=== PATIENT | male | born 1960 | race Caucasian/White ===

== ENCOUNTER → 2018-09-22 10:32 | Outpatient (BNVA) | payer MEDICARE, MEDICAID, SELFPAY | PROVIDERS: PCP Nurse Practitioner Family; Referring Provider Nurse Practitioner Family; Visit Provider Surgery | DX: Z12.11 Encounter for screening for malignant neoplasm of colon (principal); Z86.010 Personal history of colon polyps; K59.01 Slow transit constipation; E11.22 Type 2 diabetes mellitus with diabetic chronic kidney disease; N18.6 End stage renal disease; Z99.2 Dependence on renal dialysis; Z79.4 Long term (current) use of insulin; N18.4 Chronic kidney disease, stage 4 (severe) | CPT/HCPCS: 99203 ==

== ENCOUNTER 2018-10-12 05:19 | Emergency (ER) | payer MEDICARE, MEDICAID, SELFPAY ==
[2018-10-12] VITALS (62 sets, daily range): BP systolic 106–154; BP diastolic 45–82; PULSE 78–123; RESP 8–30; TEMP 36.4–38.4; O2SAT 88–99
--- NOTE | 2018-10-12 05:13 | W.ED.GENAD ---
Discharge Plan Disposition Patient Disposition: DEVAN GILBERT ([facility]) Condition: Stable Discharge Details Chief Complaint: Fever Clinical Impression: Cellulitis of left leg, Sepsis Primary Care Provider: Jarad Keller ED Provider: Roderick Chávez [place] Meds and New Rx's Prescriptions: No Action polyethylene glycol 3350 [Miralax] 17 gram/dose powder 17 gm PO BID Qty: 510 RF: 1 losartan 50 mg tablet 50 mg PO DAILY RF: 0 tamsulosin 0.4 mg capsule 0.4 mg PO DAILY RF: 0 bumetanide 1 mg tablet 2 mg PO DAILY RF: 0 ProRenal QD 400-500 mcg-unit capsule 1 cap PO DAILY RF: 0 lancets 1 EACH misc 1 ea Miscellaneous QID Qty: 400 RF: 4 BD Regular Bevel [place] 1 EACH needle 1 ea Intrauterine AC Qty: 100 RF: 4 Novolog Flexpen U-100 Insulin 100 UNIT/1 ML insulin pen 12 unit SQ AC Qty: 3 RF: 12 sertraline [Zoloft] 50 MG tablet 1 tab PO DAILY Qty: 90 RF: 4 pravastatin [Pravachol] 40 MG tablet 1 tab PO DAILY Qty: 90 RF: 4 gabapentin 300 MG capsule 1 tab PO TID Qty: 270 RF: 4 pen needle, diabetic 1 EACH needle 1 ea Sub-Q TID PRNQty: 100 RF: 12 Blood Glucose Test 1 EACH strip 1 ea Miscellaneous QID Qty: 400 RF: 6 aspirin 81 mg tablet,chewable 325 mg PO DAILY RF: 0 Medical Decision Making Patient presenting with fever and tachycardia and likely sepsis. He has low O2 saturations with some rales/rhonchi in the left base. Consider pneumonia. He does make urine so we will need to check urinalysis. He has evidence of left lower extremity cellulitis with tenderness to palpation along the medial aspect of the thigh. Will also need to consider DVT. He is due for dialysis this morning. He is not hypotensive. We will give a 500 mL bolus of fluids and Tylenol 1 g. 07:00 -patient's heart rate has come down some with a 500 fluid bolus. Blood pressure has remained stable. Saturations are 96% on 2 L nasal cannula. The left lower extremity seems to have become more erythematous while here. Laboratory studies significant for a normal white count. Lactic acid is only 2.1. BUN and creatinine elevated but normal potassium. Chest x-ray with no obvious infiltrate per preliminary radiology read. Bladder scan showed 750 mL's of urine in the bladder. He has been unable to urinate and has a history of retention. Farrell catheter placed. Urine has come back negative for infection. He has received vancomycin for presumed cellulitis of the left lower extremity. I have contacted [facility] [place] to try to arrange for transfer. 07:30 -[facility] [place] has no beds available. I contacted [facility]. Spoke to the hospitalist, Dr. Mccauley. Patient accepted to their facility for further management. Currently stable vital signs with his fever and heart rate coming down. He has received the vancomycin. He received 500 of LR and at this point is locked and given that his heart rate has come down and blood pressure is stable. He will be transferred by ambulance with medic. Lab Data Lab results reviewed: Yes I reviewed the patient's lab results. ECG Data Attestation: I personally reviewed and interpreted this ECG (s) as follows: Prior ECG tracings: available for review Interpretation: Sinus tachycardia at 125. Normal axis. Normal intervals. ST flattening/depression in the limb leads more pronounced than previous. Precordial leads unchanged. HPI General Mode of arrival: EMS. Date/Time Provider Initiated Documentation: 10/12/18 05:27. Information obtained by: patient and EMS. HPI Narrative: Patient presents to ED by ambulance with complaint of fever and weakness. Patient has not felt well for 2 days. He has had increasing generalized weakness, vomiting, shortness of breath with slight cough. He is a dialysis patient but typically makes urine although has not had significant urine output in the last few days. This morning developed fever. His left leg is typically swollen due to previous vein harvesting for his CABG. However, it is painful and red which is not typical. He has no abdominal pain. He has had some low back pain. He has had headache but no sore throat, sinus pressure. He is due for dialysis later this morning. Related Data Home Medications Medication Instructions Recorded Confirmed lancets #400 ea 08/18/12 09/22/18 needle (disp) 21 G [[place]] #100 ndl 08/31/12 09/22/18 insulin aspart U-100 [Novolog 12 unit SQ AC #3 pen 09/18/12 10/12/18 Flexpen] sertraline [Zoloft] 1 tab PO DAILY #90 tab 11/16/12 10/12/18 pravastatin [Pravachol] 1 tab PO DAILY #90 tab 08/07/13 10/12/18 gabapentin 1 tab PO TID #270 cap 10/15/13 10/12/18 pen needle, diabetic #100 ndl 11/15/13 09/22/18 blood sugar diagnostic [Glucose #400 strip 12/05/13 09/22/18 Test Strip] aspirin 81 mg chewable tablet 325 mg PO DAILY tab 09/15/18 10/12/18 bumetanide 1 mg tablet 2 mg PO DAILY tab 09/15/18 10/12/18 losartan 50 mg tablet 50 mg PO DAILY 09/15/18 10/12/18 [id number],[id number] 1 cap PO DAILY cap 09/15/18 10/12/18 oil 400 mcg-500 unit capsule tamsulosin 0.4 mg capsule 0.4 mg PO DAILY 09/15/18 10/12/18 polyethylene glycol 3350 17 17 gm PO BID #510 gm 09/22/18 10/12/18 gram/dose oral powder Previous Rx's Medication Instructions Recorded polyethylene glycol 3350 17 17 gm PO BID #510 gm 09/22/18 gram/dose oral powder Allergies Allergy/AdvReac Type Severity Reaction Status Date / Time No Known Allergies Allergy Verified 10/12/18 07:41 Review of Systems Review of Systems 02/12 Review of Systems completed and is negative except as stated above in HPI (Systems reviewed: Const, Eyes, ENT, Resp, CV, GI, , MSK, Skin, Neuro) [facility] Medical History Anxiety with depression (Acute) Arteriovenous fistula (Chronic) CHF (congestive heart failure) (Chronic) Coronary arteriosclerosis (Chronic) Diabetic retinopathy (Chronic) ESRD (end stage renal disease) (Chronic) HTN (hypertension) (Chronic) Type 2 diabetes mellitus (Chronic) Surgical History S/P CABG (coronary artery bypass graft) (Chronic) Arthroplasty of knee (Inactive ~1973) Open Carpal Tunnel release (Inactive ~2001) S/P colonoscopy (Inactive) Social History Smoking/Tobacco Use Status: Former Tobacco Use Alcohol Intake: former Drug use: Never Substance use type: does not use Do you feel safe at home: Yes Do you feel safe in your relationship?: Yes Exam Narrative Exam Narrative: Vitals: Febrile and tachycardic. Saturations on room air right around 90. Const: Obese male in NAD. HEENT: NC/AT. Normal facial exam. Eyes: Normal conjunctiva and sclera. Neck: Supple. Trachea midline. Lungs: Normal respiratory effort. Lungs with some decreased breath sounds, few rhonchi and rales at left base. Cor: RRR without murmur/gallop. Tachy. Good radial pulses. GI: Soft. NT/ND. No guarding or rebound. Neuro: A+O x 3. CN grossly in tact. General weakness but not focal. Ext: LLE larger than right with erythema predominantly lower severino and going up medial aspect of thigh. Tender to palpation. LUE with patent AV fistula. Skin: Erythema of the LLE. Critical Care Time Critical Care Time: Yes Total Critical Care Time: 60 Attestation: sepsis
--- NOTE | 2018-10-12 05:17 | ED.GENADUL_ITS ---
Discharge Plan Disposition Patient Disposition: DEVAN GILBERT ([facility]) Condition: Stable Discharge Details Chief Complaint: Fever Clinical Impression: Cellulitis of left leg, Sepsis Primary Care Provider: Jarad Keller ED Provider: Roderick Chávez [place] Meds and New Rx's Prescriptions: No Action polyethylene glycol 3350 [Miralax] 17 gram/dose powder 17 gm PO BID Qty: 510 RF: 1 losartan 50 mg tablet 50 mg PO DAILY RF: 0 tamsulosin 0.4 mg capsule 0.4 mg PO DAILY RF: 0 bumetanide 1 mg tablet 2 mg PO DAILY RF: 0 ProRenal QD 400-500 mcg-unit capsule 1 cap PO DAILY RF: 0 lancets 1 EACH misc 1 ea Miscellaneous QID Qty: 400 RF: 4 BD Regular Bevel [place] 1 EACH needle 1 ea Intrauterine AC Qty: 100 RF: 4 Novolog Flexpen U-100 Insulin 100 UNIT/1 ML insulin pen 12 unit SQ AC Qty: 3 RF: 12 sertraline [Zoloft] 50 MG tablet 1 tab PO DAILY Qty: 90 RF: 4 pravastatin [Pravachol] 40 MG tablet 1 tab PO DAILY Qty: 90 RF: 4 gabapentin 300 MG capsule 1 tab PO TID Qty: 270 RF: 4 pen needle, diabetic 1 EACH needle 1 ea Sub-Q TID PRNQty: 100 RF: 12 Blood Glucose Test 1 EACH strip 1 ea Miscellaneous QID Qty: 400 RF: 6 aspirin 81 mg tablet,chewable 325 mg PO DAILY RF: 0 Medical Decision Making Patient presenting with fever and tachycardia and likely sepsis. He has low O2 saturations with some rales/rhonchi in the left base. Consider pneumonia. He does make urine so we will need to check urinalysis. He has evidence of left lower extremity cellulitis with tenderness to palpation along the medial aspect of the thigh. Will also need to consider DVT. He is due for dialysis this morning. He is not hypotensive. We will give a 500 mL bolus of fluids and Tylenol 1 g. 07:00 -patient's heart rate has come down some with a 500 fluid bolus. Blood pressure has remained stable. Saturations are 96% on 2 L nasal cannula. The left lower extremity seems to have become more erythematous while here. Laboratory studies significant for a normal white count. Lactic acid is only 2.1. BUN and creatinine elevated but normal potassium. Chest x-ray with no obvious infiltrate per preliminary radiology read. Bladder scan showed 750 mL's of urine in the bladder. He has been unable to urinate and has a history of retention. Farrell catheter placed. Urine has come back negative for infection. He has received vancomycin for presumed cellulitis of the left lower extremity. I have contacted [facility] to try to arrange for transfer. 07:30 -[facility] has no beds available. I contacted [facility]. Spoke to the hospitalist, Dr. Mccauley. Patient accepted to their facility for further management. Currently stable vital signs with his fever and heart rate coming down. He has received the vancomycin. He received 500 of LR and at this point is locked and given that his heart rate has come down and blood pressure is stable. He will be transferred by ambulance with medic. Lab Data Lab results reviewed: Yes I reviewed the patient's lab results. ECG Data Attestation: I personally reviewed and interpreted this ECG (s) as follows: Prior ECG tracings: available for review Interpretation: Sinus tachycardia at 125. Normal axis. Normal intervals. ST flattening/depression in the limb leads more pronounced than previous. Precordial leads unchanged. HPI General Mode of arrival: EMS . Date/Time Provider Initiated Documentation: 10/12/18 05:27 . Information obtained by: patient and EMS . HPI Narrative: Patient presents to ED by ambulance with complaint of fever and weakness. Patient has not felt well for 2 days. He has had increasing generalized weakness, vomiting, shortness of breath with slight cough. He is a dialysis patient but typically makes urine although has not had significant urine output in the last few days. This morning developed fever. His left leg is typically swollen due to previous vein harvesting for his CABG. However, it is painful and red which is not typical. He has no abdominal pain. He has had some low back pain. He has had headache but no sore throat, sinus pressure. He is due for dialysis later this morning. Related Data Home Medications Medication Instructions Recorded Confirmed lancets #400 ea 08/18/12 09/22/18 needle (disp) 21 G [[place]] #100 ndl 08/31/12 09/22/18 insulin aspart U-100 [Novolog 12 unit SQ AC #3 pen 09/18/12 10/12/18 Flexpen] sertraline [Zoloft] 1 tab PO DAILY #90 tab 11/16/12 10/12/18 pravastatin [Pravachol] 1 tab PO DAILY #90 tab 08/07/13 10/12/18 gabapentin 1 tab PO TID #270 cap 10/15/13 10/12/18 pen needle, diabetic #100 ndl 11/15/13 09/22/18 blood sugar diagnostic [Glucose #400 strip 12/05/13 09/22/18 Test Strip] aspirin 81 mg chewable tablet 325 mg PO DAILY tab 09/15/18 10/12/18 bumetanide 1 mg tablet 2 mg PO DAILY tab 09/15/18 10/12/18 losartan 50 mg tablet 50 mg PO DAILY 09/15/18 10/12/18 mv,[id number] 1 cap PO DAILY cap 09/15/18 10/12/18 oil 400 mcg-500 unit capsule tamsulosin 0.4 mg capsule 0.4 mg PO DAILY 09/15/18 10/12/18 polyethylene glycol 3350 17 17 gm PO BID #510 gm 09/22/18 10/12/18 gram/dose oral powder Previous Rx's Medication Instructions Recorded polyethylene glycol 3350 17 17 gm PO BID #510 gm 09/22/18 gram/dose oral powder Allergies Allergy/AdvReac Type Severity Reaction Status Date / Time No Known Allergies Allergy Verified 10/12/18 07:41 Review of Systems Review of Systems 02/12 Review of Systems completed and is negative except as stated above in HPI (Systems reviewed: Const, Eyes, ENT, Resp, CV, GI, , MSK, Skin, Neuro) [facility] Medical History Anxiety with depression (Acute) Arteriovenous fistula (Chronic) CHF (congestive heart failure) (Chronic) Coronary arteriosclerosis (Chronic) Diabetic retinopathy (Chronic) ESRD (end stage renal disease) (Chronic) HTN (hypertension) (Chronic) Type 2 diabetes mellitus (Chronic) Surgical History S/P CABG (coronary artery bypass graft) (Chronic) Arthroplasty of knee (Inactive ~1973) Open Carpal Tunnel release (Inactive ~2001) S/P colonoscopy (Inactive) Social History Smoking/Tobacco Use Status: Former Tobacco Use Alcohol Intake: former Drug use: Never Substance use type: does not use Do you feel safe at home: Yes Do you feel safe in your relationship?: Yes Exam Narrative Exam Narrative: Vitals: Febrile and tachycardic. Saturations on room air right around 90. Const: Obese male in NAD. HEENT: NC/AT. Normal facial exam. Eyes: Normal conjunctiva and sclera. Neck: Supple. Trachea midline. Lungs: Normal respiratory effort. Lungs with some decreased breath sounds, few rhonchi and rales at left base. Cor: RRR without murmur/gallop. Tachy. Good radial pulses. GI: Soft. NT/ND. No guarding or rebound. Neuro: A+O x 3. CN grossly in tact. General weakness but not focal. Ext: LLE larger than right with erythema predominantly lower severino and going up medial aspect of thigh. Tender to palpation. LUE with patent AV fistula. Skin: Erythema of the LLE. Critical Care Time Critical Care Time: Yes Total Critical Care Time: 60 Attestation: sepsis
[2018-10-12] MEDS: Acetaminophen 500 MG TAB 1000 MG PO (05:34)
[2018-10-12] MEDS: Normal Saline Flush 10 ML SYR IVP (05:38)
[2018-10-12] MEDS: Lactated Ringers 500 ML IV (05:38)
--- NOTE | 2018-10-12 05:51 | DI.RAD_ITS ---
SYMPTOM/DIAGNOSIS: FEVER, SOB PORTABLE SEMI-ERECT AP CHEST: No localized infiltrates are seen. There is no pleural effusion. The heart is not enlarged. The patient is status post median sternotomy. The hilar structures, mediastinum and tracheal air column appear intact. SUMMARY: No evidence of acute cardiopulmonary disease.
[2018-10-12 06:02] LABS: Abs Immature Grans 0.04 k/cumm (0.0-0.09); Absolute Basophil Count 0.03 k/cumm (0.0-0.2); Absolute Eosinophil Count 0.01 k/cumm (0.0-0.7); Absolute Lymphocyte Count 0.59 k/cumm (1.2-3.4); Absolute Monocyte Count 0.74 k/cumm (0.11-0.7); Absolute Neutrophil Count 9.07 k/cumm (1.2-6.7); Basophils % 0.3; Eosinophils % 0.1; HCT 33.7 % (40.0-50.0); HGB 11.2 g/dL (13.5-17.5); Immature Grans % 0.4; Lymphocytes % 5.6; Mean Corp. HGB Concentration 33.2 g/dL (32.0-36.0); Mean Corpuscular Hemoglobin 32.5 pg (27.0-33.0); Mean Corpuscular Volume 97.7 fL (80-95); Mean Platelet Volume 10.1 fL (8.0-11.0); Monocytes % 7.1; Neutrophils % 86.5; Platelet Count 161 x1000/uL (130-400); RBC 3.45 m/cumm (4.50-6.00); RBC Distribution Width 14.4 % (11.8-14.1); White Blood Cell Count 10.48 k/cumm (4.4-10.8)
[2018-10-12] MEDS: VANCOMYCIN 1,500 MG in Normal Saline 250 ML 166.6666 MG IVPB (06:04)
--- NOTE | 2018-10-12 06:07 | DI.VRAD_ITS ---
EXAM: XR Chest, 1 View EXAM DATE/TIME: 10/12/2018 5:31 AM CLINICAL HISTORY: 58 years old, male; Signs and symptoms; Fever and shortness of breath TECHNIQUE: Imaging protocol: XR of the chest, 1 view. COMPARISON: No relevant prior studies available. FINDINGS: Lungs: No obvious consolidation. Left base poorly visualized on this single portable view. Pleural space: Unremarkable. No evidence of pneumothorax. Heart/Mediastinum: Unremarkable. Heart size within normal limits for technique. Bones/joints: Unremarkable. IMPRESSION: No acute findings. Dictated and Authenticated by: Louis Abreu MD. Ordering:KAROL Vaughn MD
[2018-10-12 06:10] LABS: Lactate-non-spesis 2.1 mmol/l (0.6-1.4)
[2018-10-12 06:22] LABS: ALT 41 U/L (12-78); AST 34 U/L (15-37); Albumin 3.1 g/dL (3.4-5.0); Alkaline Phosphatase 85 U/L (46-116); BUN 49 mg/dL (7-18); Bilirubin, Total 0.6 mg/dL (0.2-1.0); Calcium 8.8 mg/dL (8.5-10.1); Chloride 91 mmol/L (98-107); Estimated GFR 10.16 (mL/min/1.73m2); Glucose 253 mg/dL (70-100); Magnesium 1.7 mg/dL (1.8-2.4); Potassium 4.2 mmol/L (3.5-5.1); Sodium 130 mmol/L (136-145); Total Protein 7.6 g/dL (6.4-8.2); Troponin I 0.06 ng/mL (0.00-0.06)
[2018-10-12 06:23] LABS: CREATININE 5.75 mg/dL (0.70-1.30)
[2018-10-12] MEDS: Lidocaine 2% Jelly 6 ML SYR (06:32)
[2018-10-12 06:37] LABS: Bilirubin Negative (Negative); Blood Moderate (Negative); Clarity Clear; Glucose 500 mg/dL (Negative); Ketones Negative (Negative); Leukocyte Esterase Negative (Negative); Nitrite Negative (Negative); Specific Gravity 1.015 (1.005-1.025); Urobilinogen 0.2 EU/dL (Up TO 0.2)
[2018-10-12 06:52] LABS: Bacteria Rare HPF (Negative); Crystals Few Amorphous HPF (Negative); Epithelial Cells Rare HPF (Negative); Mucus Trace (Negative)
[2018-10-12 06:53] LABS: C & S Indicated? No; Casts 0-2 Coarse Granular LPF (Negative)
== END 2018-10-12 11:08 | disposition short-term general hospital (02) ==
LOC: ER 08:04
PROVIDERS: Emergency Provider Emergency Medicine; PCP Nurse Practitioner Family
DX: A41.9 Sepsis, unspecified organism (principal); L03.116 Cellulitis of left lower limb; R00.0 Tachycardia, unspecified; E11.22 Type 2 diabetes mellitus with diabetic chronic kidney disease; I13.2 Hypertensive heart and chronic kidney disease with heart failure and with stage 5 chronic kidney disease, or end stage renal disease; N18.6 End stage renal disease; I25.10 Atherosclerotic heart disease of native coronary artery without angina pectoris; Z99.2 Dependence on renal dialysis; I50.9 Heart failure, unspecified; Z95.1 Presence of aortocoronary bypass graft
CPT/HCPCS: 36415; 80053; 87040; 93005; 96360; 96365; 96366; 99285; 71045; 81003; 81015; 83605; 83735; 84484; 85025; 93010

== ENCOUNTER 2018-11-17 10:42 | Emergency (ER) | payer MEDICARE, MEDICAID, SELFPAY ==
[2018-11-17] VITALS (12 sets, daily range): BP systolic 137–174; BP diastolic 70–83; PULSE 76–92; RESP 14–18; TEMP 36.7–36.9; O2SAT 82–96
--- NOTE | 2018-11-17 11:31 | DI.US_ITS ---
SYMPTOM/DIAGNOSIS: LEFT LEG SWELLING, R/O DVT LEFT LOWER EXTREMITY ULTRASOUND: The deep veins of the left lower extremity show normal compression, augmentation and color flow. No evidence of a deep venous thrombus is present. The saphenofemoral junction appears unremarkable. No focal fluid collections are seen in the soft tissues. IMPRESSION: No evidence of a left lower extremity deep venous thrombus.
--- NOTE | 2018-11-17 11:32 | ED.GENADUL_ITS ---
Discharge Plan Disposition Patient Disposition: HOME Condition: Stable Discharge Details Chief Complaint: Cellulitis Clinical Impression: Cellulitis of left leg Primary Care Provider: Jarad Keller ED Provider: Lashawn Fagan Home Meds and New Rx's Prescriptions: New amoxicillin-pot clavulanate [Augmentin] 875-125 mg tablet 1 tab PO TID 10 Days Qty: 30 RF: 0 Continued polyethylene glycol 3350 [Miralax] 17 gram/dose powder 17 gm PO BID Qty: 510 RF: 1 losartan 50 mg tablet 50 mg PO DAILY RF: 0 tamsulosin 0.4 mg capsule 0.4 mg PO DAILY RF: 0 bumetanide 1 mg tablet See Rx Instructions .ROUTE .COMPLEX RF: 0 ProRenal QD 400-500 mcg-unit capsule 1 cap PO DAILY RF: 0 (DME) lancets 1 EACH misc 1 ea Miscellaneous QID Qty: 400 RF: 4 (DME) BD Regular [employer] 1 EACH needle 1 ea Intrauterine AC Qty: 100 RF: 4 Novolog Flexpen U-100 Insulin 100 UNIT/1 ML insulin pen 12 unit SQ AC Qty: 3 RF: 12 sertraline [Zoloft] 50 MG tablet 1 tab PO DAILY Qty: 90 RF: 4 pravastatin [Pravachol] 40 MG tablet 1 tab PO DAILY Qty: 90 RF: 4 gabapentin 300 MG capsule 1 tab PO TID Qty: 270 RF: 4 (DME) pen needle, diabetic 1 EACH needle 1 ea Sub-Q TID Qty: 100 RF: 12 (DME) Blood Glucose Test 1 EACH strip 1 ea Miscellaneous QID Qty: 400 RF: 6 aspirin 81 mg tablet,chewable 325 mg PO DAILY RF: 0 Discharge Instructions Instructions: Cellulitis (ED) Additional Instructions: Take the antibiotics as directed until finished. Return to the hospital lab on Tuesday for repeat blood tests. Follow-up with your scheduled appointment with your primary care doctor's office that we made for you at 10 AM on TuesdayNovember 20. Return immediately to the emergency department if you develop any worsening or concerning symptoms of fever, chills, worsening leg pain, redness or swelling. Discharge Data Discharge Date/Time-TO BE ENTERED AT DEPARTURE: 11/17/18 14:02 Discharge Physician: Lashawn Fagan Medical Decision Making 58yo M w/ a h/o DM, ESRD on HD, HTN, CHF w/ recent hospital admissions for sepsis due to L leg cellulitis x [address] [facility] and [facility] who presents with persistent left leg swelling and minimal erythema. He finished Augmentin within the past 2 weeks. Denies any fevers or complaint of leg pain, chest pain or shortness of breath. Patient appears nontoxic. He is afebrile and vitals within normal limits. He has left lower extremity edema and tightening of skin noted from left mid thigh down to left ankle. There is erythema mainly on the lower leg. He is escobar rovascularly intact. There is no pitting edema. There is no ecchymosis. There are no open wounds. Considering patient's history and complaint will check screening labs, lactate, blood cultures and a Doppler ultrasound to rule out DVT or significant worsening infection. Considering that patient looks well with normal vitals, presentation not consistent with sepsis at this time. 1300 -- Labs and imaging reviewed. White blood cell count normal. Lactate normal. ESR elevated at 107 and CRP elevated at 2.93. Doppler ultrasound negative for DVT. Patient did obtain a CT of his lower extremity last month at [facility] that was negative for an abscess or deep space infection. Discussed with patient at bedside the possibility of obtaining a repeat CT of his extremity to assess for abscess but this may require transfer to another facility as he would likely require dialysis following this diagnostic test. Patient would rather not be transferred anywhere at this time and would rather start with oral antibiotics and follow-up with his primary care doctor. Case discussed with Dr. Leger covering for patient's primary care doctor -he will order repeat ESR and CRP for Tuesday. Dose of augmentin given here and will send home with prescription. Patient was arranged for a follow-up appointment with his primary care doctor Tuesday morning at 10 AM for reevaluation. He was instructed to return here immediately if he has any worsening or new concerning symptoms. Medical Records Medical records reviewed: Yes I reviewed the patient's medical records. Lab Data Lab results reviewed: Yes I reviewed the patient's lab results. 11/17/18 13:35 Blood Blood Culture - Pending 11/17/18 13:25 Blood Blood Culture - Pending Laboratory Tests Range/Units 11/17/18 11/17/18 11/17/18 11:44 11:44 11:44 WBC (4.4-10.8) k/cumm 5.55 RBC (4.50-6.00) m/cumm 3.40 L Hgb (13.5-17.5) g/dL 10.9 L Hct (40.0-50.0) % 33.9 L MCV (80-95) fL 99.7 H MCH (27.0-33.0) pg 32.1 MCHC (32.0-36.0) g/dL 32.2 RDW (11.8-14.1) % 15.0 H Plt Count (130-400) x1000/uL 224 MPV (8.0-11.0) fL 9.7 Immature Gran % 0.4 Neutrophils % 72.8 Lymphocytes % 14.4 Monocytes % 9.5 Eosinophils % 2.5 Basophils % 0.4 Absolute Neutrophils (1.2-6.7) k/cumm 4.04 Absolute Lymphocytes (1.2-3.4) k/cumm 0.80 L Absolute Monocytes (0.11-0.7) k/cumm 0.53 Absolute Eosinophils (0.0-0.7) k/cumm 0.14 Absolute Basophils (0.0-0.2) k/cumm 0.02 ESR (1-20) mm/hr 107 H Sodium (136-145) mmol/L 136 Potassium (3.5-5.1) mmol/L 4.4 Chloride (98-107) mmol/L 97 L Carbon Dioxide (21.0-32.0) mmol/L 32.5 H Anion Gap (3-11) mmol/L 6.5 BUN (7-18) mg/dL 31 H Creatinine (0.70-1.30) mg/dL 4.16 H* Estimated GFR/1.73 m2 (mL/min/1.73m2) 14.76 Glucose (70-100) mg/dL 277 H Lactate (0.6-1.4) mmol/l 1.3 Calcium (8.5-10.1) mg/dL 9.0 C-Reactive Protein (0.0-0.3) mg/dL 2.93 H HPI General Mode of arrival: ambulatory . Date/Time Provider Initiated Documentation: 11/17/18 11:08 . Limitations to Documentation: no limitations . Information obtained by: patient . HPI Narrative: Patient is a 58-year-old male with history of diabetes, hypertension, end-stage renal disease on dialysis, CHF who presents with chronic left leg edema and erythema for the past 6 weeks. Patient was admitted to [facility] as well as [facility] recently and treated with IV antibiotics. He most recently finished Augmentin. He states the symptoms have not gotten worse but states the swelling has not improved and the redness is still present. He denies any leg pain, fever, chest pain, shortness of breath. He states he otherwise has been feeling better but wondering about the persistent leg swelling and redness. Related Data Home Medications Medication Instructions Recorded Confirmed lancets #400 ea 08/18/12 09/22/18 BD Regular [employer] #100 ndl 08/31/12 09/22/18 Novolog Flexpen U-100 Insulin 12 unit SQ AC #3 pen 09/18/12 11/17/18 sertraline [Zoloft] 1 tab PO DAILY #90 tab 11/16/12 11/17/18 pravastatin [Pravachol] 1 tab PO DAILY #90 tab 08/07/13 11/17/18 gabapentin 1 tab PO TID #270 cap 10/15/13 11/17/18 pen needle, diabetic #100 ndl 11/15/13 09/22/18 Blood Glucose Test #400 strip 12/05/13 09/22/18 aspirin 81 mg chewable tablet 325 mg PO DAILY tab 09/15/18 11/17/18 bumetanide 1 mg tablet See Rx Instructions .ROUTE 09/15/18 11/17/18 .COMPLEX tab losartan 50 mg tablet 50 mg PO DAILY 09/15/18 11/17/18 mv,[id number] 1 cap PO DAILY cap 09/15/18 11/17/18 oil 400 mcg-500 unit capsule tamsulosin 0.4 mg capsule 0.4 mg PO DAILY 09/15/18 11/17/18 polyethylene glycol 3350 17 17 gm PO BID #510 gm 09/22/18 11/17/18 gram/dose oral powder amoxicillin-pot clavulanate 1 tab PO TID 10 Days #30 tab 11/17/18 [Augmentin] Previous Rx's Medication Instructions Recorded polyethylene glycol 3350 17 17 gm PO BID #510 gm 09/22/18 gram/dose oral powder amoxicillin-pot clavulanate 1 tab PO TID 10 Days #30 tab 11/17/18 [Augmentin] Allergies Allergy/AdvReac Type Severity Reaction Status Date / Time ciprofloxacin Allergy Intermediate rash from Unverified 11/17/18 11:02 IV General Stated Complaint: Cellulitis ABBIE: 3 Review of Systems Review of Systems All systems reviewed & are unremarkable except as noted in HPI and below Constitutional Reports as per HPI, Denies chills and Denies fever(s) Eyes Denies blurry vision ENT Denies dizziness, Denies sore throat and Denies throat swelling Cardiovascular Denies chest pain and Denies dyspnea Respiratory Denies cough and Denies dyspnea Gastrointestinal Denies abdominal pain, Denies diarrhea and Denies vomiting Genitourinary Denies hematuria and Denies dysuria Musculoskeletal Denies back pain, Denies numbness and Reports other (left leg swelling) Integumentary/Breasts Denies lesions and Denies rash Neurologic Denies dizziness, Denies focal weakness and Denies numbness Allergic/Immunologic Denies throat swelling [facility] Medical History Anxiety with depression (Acute) Arteriovenous fistula (Chronic) CHF (congestive heart failure) (Chronic) Coronary arteriosclerosis (Chronic) Diabetic retinopathy (Chronic) ESRD (end stage renal disease) (Chronic) HTN (hypertension) (Chronic) Type 2 diabetes mellitus (Chronic) Surgical History Arthroplasty of knee (Inactive ~1973) Open Carpal Tunnel release (Inactive ~2001) S/P CABG (coronary artery bypass graft) (Chronic) S/P colonoscopy (Inactive) Family History Father Heart disease Diabetes Mother Diabetes Renal disease Brother Heart disease Social History Smoking/Tobacco Use Status: Former Tobacco Use Alcohol Intake: former Drug use: Current Sobriety Substance use type: does not use and marijuana Details: marijuana in the 70's Do you feel safe at home: Yes Do you feel safe in your relationship?: Yes Exam Const General: cooperative, healthy appearing and no acute distress HENMT Head: normal to inspection Face and sinus: normal facial exam Eyes General: appearance normal, both eyes and all related structures EOM: EOM intact bilaterally Neck Neck: normal visual inspection and No submandibular swelling Lymphatic: no lymphadenopathy noted Chest Chest: normal inspection of the chest and no tenderness Resp Effort & Inspection: normal respiratory effort and able to speak in complete sentences Auscultation: clear to auscultation bilaterally Cardio Rate: regular rate Rhythm: regular rhythm GI Inspection: normal to inspection Palpation: soft, not firm, not rigid and nontender Auscultation: normal bowel sounds Male General Exam: Yes normal external exam Back/Spine/Pelvis Thoracic/Lumbar Spine: thoracic and lumbar spine normal to inspection Pelvis: no pain with anterior-posterior compression Skin General skin exam: no rashes or lesions noted Neuro General: alert, awake and oriented x3 Cognition: normal cognition Speech: speech normal Motor: muscle tone normal throughout Sensory Exam: no sensory deficits noted Extrem Other: Left thigh and lower leg edema. Left lower leg erythema extending from proximal leg down to ankle. Skin indurated and tight. No significant edema compared to right leg but skin appears more tight and erythematous. Left DP/PT pulse intact. There is a 2 x 2 centimeter crusted wound left anterior leg without surrounding abscess, drainage, or bleeding. Psych Appearance: grossly normal Mental Status: mental status grossly normal Speech and Movement: speech and movement normal Affect: normal affect Course Vital Signs Temperature 98.4 F 11/17/18 10:55 Pulse 92 H 11/17/18 10:55 Respiratory Rate 18 11/17/18 10:55 Blood Pressure 174/70 H 11/17/18 10:55 Pulse Oximetry 93 L 11/17/18 10:55 Temperature 98.4 F 11/17/18 10:55 Temperature Source Skin 11/17/18 10:55 Pulse 92 H 11/17/18 10:55 Respiratory Rate 18 11/17/18 10:55 Respiratory Effort 11/17/18 11:02 Blood Pressure 174/70 H 11/17/18 10:55 Pulse Oximetry 93 L 11/17/18 10:55 Oxygen Delivery Method Room Air 11/17/18 10:55 Oxygen Flow Rate 0 11/17/18 10:55 Pain Level 0 11/17/18 10:55
[2018-11-17 11:49] LABS: Lactate-non-spesis 1.3 mmol/l (0.6-1.4)
[2018-11-17 12:32] LABS: ESR 107 mm/hr (1-20)
[2018-11-17 12:35] LABS: Abs Immature Grans 0.02 k/cumm (0.0-0.09); Absolute Basophil Count 0.02 k/cumm (0.0-0.2); Absolute Eosinophil Count 0.14 k/cumm (0.0-0.7); Absolute Monocyte Count 0.53 k/cumm (0.11-0.7); Absolute Neutrophil Count 4.04 k/cumm (1.2-6.7); Basophils % 0.4; Eosinophils % 2.5; HCT 33.9 % (40.0-50.0); HGB 10.9 g/dL (13.5-17.5); Immature Grans % 0.4; Lymphocytes % 14.4; Mean Corp. HGB Concentration 32.2 g/dL (32.0-36.0); Mean Corpuscular Hemoglobin 32.1 pg (27.0-33.0); Mean Corpuscular Volume 99.7 fL (80-95); Mean Platelet Volume 9.7 fL (8.0-11.0); Monocytes % 9.5; Neutrophils % 72.8; Platelet Count 224 x1000/uL (130-400); White Blood Cell Count 5.55 k/cumm (4.4-10.8)
[2018-11-17 13:04] LABS: Anion Gap 6.5 mmol/L (3-11); BUN 31 mg/dL (7-18); C-Reactive Protein 2.93 mg/dL (0.0-0.3); CO2 32.5 mmol/L (21.0-32.0); Chloride 97 mmol/L (98-107); Estimated GFR 14.76 (mL/min/1.73m2); Glucose 277 mg/dL (70-100); Potassium 4.4 mmol/L (3.5-5.1); Sodium 136 mmol/L (136-145)
[2018-11-17 13:05] LABS: CREATININE 4.16 mg/dL (0.70-1.30)
[2018-11-17] MEDS: Amoxicillin 875/Clav. 125 TAB PO (13:55)
== END 2018-11-17 14:02 | disposition home or self-care (01) ==
PROVIDERS: Emergency Provider Physician Assistant; PCP Nurse Practitioner Family
DX: L03.116 Cellulitis of left lower limb (principal); I50.9 Heart failure, unspecified; N18.6 End stage renal disease; I13.0 Hypertensive heart and chronic kidney disease with heart failure and stage 1 through stage 4 chronic kidney disease, or unspecified chronic kidney disease; Z99.2 Dependence on renal dialysis
CPT/HCPCS: 36410; 36415; 36416; 80048; 82962; 85652; 87040; 99284; 83605; 85025; 86140; 93971

== ENCOUNTER 2018-11-20 07:48 | Outpatient (CLI) | payer MEDICARE, MEDICAID, SELFPAY ==
[2018-11-20 10:00] LABS: C-Reactive Protein 2.23 mg/dL (0.0-0.3)
== END 2018-11-20 08:08 ==
PROVIDERS: PCP Nurse Practitioner Family; Visit Provider Family Medicine
DX: L03.116 Cellulitis of left lower limb (principal)
CPT/HCPCS: 36415; 86140

== ENCOUNTER 2018-12-08 14:05 | Outpatient (REF) | payer MEDICARE, SELFPAY ==
[2018-12-08 19:10] LABS: C-Reactive Protein 1.85 mg/dL (0.0-0.3)
== END 2018-12-08 14:25 ==
LOC: NCHCN 14:05
PROVIDERS: PCP Nurse Practitioner Family; Visit Provider Family Medicine
DX: L03.116 Cellulitis of left lower limb (principal)
CPT/HCPCS: 86140

== ENCOUNTER → 2019-01-12 09:59 | Outpatient (BNVA) | payer MEDICARE, MEDICAID, SELFPAY | PROVIDERS: PCP Nurse Practitioner Family; Referring Provider Nurse Practitioner Family; Visit Provider Physical Therapy Assistant | DX: Z12.11 Encounter for screening for malignant neoplasm of colon (principal); Z86.010 Personal history of colon polyps; E11.22 Type 2 diabetes mellitus with diabetic chronic kidney disease; N18.6 End stage renal disease; I13.2 Hypertensive heart and chronic kidney disease with heart failure and with stage 5 chronic kidney disease, or end stage renal disease; I50.9 Heart failure, unspecified; Z79.4 Long term (current) use of insulin ==

== ENCOUNTER 2019-01-22 06:08 | Day surgery (SDC) | payer MEDICARE, MEDICAID, SELFPAY ==
[2019-01-22 06:21] VITALS: BP 132/77; PULSE 94; RESP 18; TEMP 36.4; O2SAT 96
--- NOTE | 2019-01-22 06:22 | W.COLOREPORT ---
Date of service: 01/22/19 Time of Service: 07:25 Colonoscopy Report Date of procedure: 01/22/19 Pre-op diagnosis general: Hx of polyps Post-op diagnosis procedure note: same Procedure: Colonoscopy with polypectomy by cold forceps Surgeon: Mackenzie Roque Anesthesia proc note operative: other (General/ ASA 4/ Ej Gomez CRNA) Estimated blood loss (mL): 3 Pathology: other (16 polyps) Complications: None Disposition: same day Indications: Mr. Rudolph is a 58 year old male seen in the office for a colonoscopy. His last colonoscopy was in 2018 and he had polyps. He needs a follow up to also try to move forward with a renal transplant. Patient has not been clean on prior colonoscopies. Risks, benefits and complications have been reviewed. Complications include but are not limited to bleeding, pain, perforation, missed small lesion/polyp, sore throat, aspiration and adverse reaction to the medications. Questions were entertained and answered to their satisfaction and they wished to proceed. No guarantees were given or implied. Prep: Miralax/Dulcolax Procedure Start Time: :25 Procedure End Time: 08:17 Retraction Time: 42 minutes Findings: Numerous small polyps throughout. Mostly looked like hyperplastic polyps Procedure Description: After informed consent was obtained the patient was taken to the procedure room and placed in a left decubitous position. Monitors were applied and a time out was done. The patients name, date of , procedure, allergies to medications and metal in their body was reviewed. The patient was then sedated. Once sedated and comfortable a rectal exam was done. External exam was normal. Internal exam revealed a normal sphincter tone and no palpable masses. The prostate felt smooth. The scope was then introduced and retro-flexed. No internal hemorrhoids were identified. A couple of polyps were noted. The scope was then advanced to the cecum without difficulty. The TI and appendiceal orifice were identified. The prep was good. The scope was then slowly retracted over 42 minutes back into the rectum. Polyps were removed with cold forceps x1 in the transverse colon, x1 in the descending colon, x7 in the sigmoid colon and x7 in the rectum. The scope was removed and the patient was woken up and taken back to Same day surgery in stable condition. The patient tolerated the procedure well and there were no immediate complications. Follow up: The patient should follow up in 3 years unless they develop changes in bowel habits or other new gastrointestinal complaints.
--- NOTE | 2019-01-22 06:25 | W.PM.DSUDISC ---
Discharge Plan Disposition Patient Disposition: HOME Condition: Good Discharge Details Reason For Visit: Colon Cancer Screening and history of colon polyps Attending Provider: Mackenzie Roque Primary Care Provider: Jarad Keller Home Meds and New Rx's Prescriptions: Continued losartan 50 mg tablet 50 mg PO DAILY RF: 0 tamsulosin 0.4 mg capsule 0.4 mg PO DAILY RF: 0 bumetanide 1 mg tablet See Rx Instructions .ROUTE .COMPLEX RF: 0 ProRenal QD 400-500 mcg-unit capsule 1 cap PO DAILY RF: 0 Adult 50+ Probiotic 4 billion cell capsule 4,000 mmu cells PO DAILY RF: 0 (DME) lancets 1 EACH misc 1 ea Miscellaneous QID Qty: 400 RF: 4 (DME) BD Regular Bevel [employer] 1 EACH needle 1 ea Intrauterine AC Qty: 100 RF: 4 Novolog Flexpen U-100 Insulin 100 UNIT/1 ML insulin pen 12 unit SQ AC Qty: 3 RF: 12 sertraline [Zoloft] 50 MG tablet 1 tab PO DAILY Qty: 90 RF: 4 pravastatin [Pravachol] 40 MG tablet 1 tab PO DAILY Qty: 90 RF: 4 gabapentin 300 MG capsule 1 tab PO TID Qty: 270 RF: 4 (DME) pen needle, diabetic 1 EACH needle 1 ea Sub-Q TID Qty: 100 RF: 12 (DME) Blood Glucose Test 1 EACH strip 1 ea Miscellaneous QID Qty: 400 RF: 6 Discontinued polyethylene glycol 3350 [Miralax] 17 gram/dose powder 17 gm PO BID Qty: 510 RF: 1 bisacodyl [Dulcolax (bisacodyl)] 5 mg tablet,delayed release (DR/EC) 5 mg PO ONCE Qty: 8 RF: 0 Discharge Instructions Instructions: Colonoscopy (DC), Colorectal Polyps (DC) Additional Instructions: Findings: 16 polyps removed all very small. Most are probably benign Follow up: 3 years Please call if you develop: fevers >101.5 Nausea or Vomiting Abdominal pain that is not transient DAY SURGERY UNIT POST ENDOSCOPY INSTRUCTIONS 1. Because there will be medication in your system for the next 24 hours, you may feel a little sleepy. Your coordination will be affected. Therefore: a. Do not drive or operate dangerous equipment for 24 hours. b. Do not drink alcohol beverages for 24 hours (not even beer). c. Plan to go home and rest for the day. 2. Generally there are no restrictions on your activity after a day or so has gone by, but you may feel a bit fatigued for a few days. 3 After you arrive home you may have a light meal and return to a normal diet as you can tolerate it without feeling sick to your stomach. 4. After surgery, you may feel pain or discomfort. This should be only transient, but if it persists please contact your doctor. 5. If there are any questions regarding the findings of your procedure, please feel free to contact your doctor. 6. If you are unable to contact your doctor with a problem, contact the hospital at [phone]. 7. Continue all your regular medications unless directed otherwise. I understand the above instructions and have no questions. Signature of Patient or Responsible Adult Escort Date/Time Name of Responsible Adult Escort Signature of Nurse Date/Time Activity:: Activity as Tolerated Diet:: As Tolerated Discharge Orders Discharge Orders: Discharge Order (Routine); Ordered 01/22/19 Ordered By: Mackenzie Roque DS: Diagnosis Discharge Diagnosis (1) S/P colonoscopy: Status: Inactive (2) Colorectal polyps: Status: Acute
[2019-01-22 06:38] LABS: Potassium 3.5 mmol/L (3.5-5.1)
[2019-01-22] MEDS: Lactated Ringers 1,000 ML 10 ML IV (06:49)
[2019-01-22] MEDS: Lidocaine 2% Pres-Free 5 ML VIAL (07:20)
--- NOTE | 2019-01-22 07:41 | BOWEL_PTH ---
PATIENT: Maurice Rudolph LOC: [facility] U#:[id number] AGE/SX: 58/M ROOM: RE01/22/[address]: Mackenzie Roque MD : 1960 BED: DIS: 01/22/2019 SPEC #: [id number] RECD: 01/22/19 11:16 STATUS: AFIA RE #: [id number] JORGE: 01/22/19 07:[address]: Mackenzie Roque DEPT: Surgical Specimen RECD BY: Madelaine Garces ENTERED: 01/22/19 11:18 SP TYPE: Bowel OTHR DR: Jarad Keller Tissues: 1 - BIOPSY BOWEL 2 - BIOPSY BOWEL 3 - BIOPSY BOWEL 4 - BIOPSY BOWEL Procedures: GROSS AND MICRO LEVEL 4 Comments: [id number]
== END 2019-01-22 09:40 | disposition home or self-care (01) ==
PROVIDERS: PCP Nurse Practitioner Family; Visit Provider Surgery
PROC: 0DJD8ZZ Inspection of Lower Intestinal Tract, Via Natural or Artificial Opening Endoscopic (ICD-10-PCS; CPT 45378; principal; 2019-01-22 07:30)
DX: Z12.11 Encounter for screening for malignant neoplasm of colon (principal); K63.5 Polyp of colon; K62.1 Rectal polyp; Z87.19 Personal history of other diseases of the digestive system; N18.6 End stage renal disease; Z99.2 Dependence on renal dialysis; E11.9 Type 2 diabetes mellitus without complications; Z76.4 Other boarder to healthcare facility; I10 Essential (primary) hypertension
CPT/HCPCS: 45380; 36415; 88305; 84132

== ENCOUNTER 2019-04-29 16:42 | Emergency (ER) | payer MEDICARE, MEDICAID, SELFPAY ==
[2019-04-29] VITALS (26 sets, daily range): BP systolic 114–160; BP diastolic 64–109; PULSE 72–95; RESP 12–38; TEMP 36.4; O2SAT 90–97
[2019-04-29 17:07] LABS: White Blood Cell Count 6.31 k/cumm (4.4-10.8)
[2019-04-29 17:08] LABS: Abs Immature Grans 0.02 k/cumm (0.0-0.09); Absolute Basophil Count 0.03 k/cumm (0.0-0.2); Absolute Lymphocyte Count 1.09 k/cumm (1.2-3.4); Absolute Monocyte Count 0.56 k/cumm (0.11-0.7); Absolute Neutrophil Count 4.41 k/cumm (1.2-6.7); Basophils % 0.5; Eosinophils % 3.2; HCT 34.4 % (40.0-50.0); HGB 11.4 g/dL (13.5-17.5); Immature Grans % 0.3; Lymphocytes % 17.3; Mean Corp. HGB Concentration 33.1 g/dL (32.0-36.0); Mean Corpuscular Hemoglobin 31.9 pg (27.0-33.0); Mean Corpuscular Volume 96.4 fL (80-95); Mean Platelet Volume 8.8 fL (8.0-11.0); Monocytes % 8.9; Neutrophils % 69.8; Platelet Count 149 x1000/uL (130-400); RBC 3.57 m/cumm (4.50-6.00); RBC Distribution Width 14.6 % (11.8-14.1)
--- NOTE | 2019-04-29 17:08 | DI.RAD_ITS ---
EXAM: XR CHEST 2V PA LATERAL INDICATION: dizziness, r/o acute disease. COMPARISON: XR PORTABLE CHEST AP from 10/12/2018 TECHNIQUE: 2D digital imaging was performed. FINDINGS: There is poor inspiration. Stable cardiomegaly is present. Postsurgical changes are seen in the med iastinum. No definite focal consolidating infiltrates are seen. No pleural effusion or pneumothorax is identified. The pulmonary vasculature appears stable. IMPRESSION: No significant change in appearance of the chest x-ray compared to the prior examination. No definit e acute pulmonary process.
--- NOTE | 2019-04-29 17:19 | DI.VRAD_ITS ---
PROCEDURE INFORMATION: Exam: XR Chest, 2 Views Exam date and time: 04/29/2019 5:13 PM Age: 59 years old Clinical indication: Other: Dizzyness; Prior surgery; Surgery type: Bypass five years ago TECHNIQUE: Imaging protocol: XR of the chest Views: 2 views. COMPARISON: SC XR PORTABLE CHEST AP 10/12/2018 5:50 AM FINDINGS: Lungs: Low lung volumes. Prominent, indistinct pulmonary vasculature. Hazy left basilar opacity. Pleural space: Unremarkable. No pleural effusion. No pneumothorax. Heart/Mediastinum: Enlarged postsurgical cardiomediastinal silhouette. Bones/joints: Unremarkable. IMPRESSION: 1. Pulmonary edema. 2. Hazy left basilar opacity consistent with edema, atelectasis, aspiration or infection. Dictated and Authenticated by: Rodrigo Monique MD. Ordering:DIANE Hardin MD
[2019-04-29 17:31] LABS: ALT 29 U/L (16-63); AST 22 U/L (15-37); Albumin 3.7 g/dL (3.4-5.0); Alkaline Phosphatase 104 U/L (46-116); BUN 31 mg/dL (7-18); Bilirubin, Total 0.3 mg/dL (0.2-1.0); Calcium 8.8 mg/dL (8.5-10.1); Chloride 97 mmol/L (98-107); Estimated GFR 13.17 (mL/min/1.73m2); Glucose 82 mg/dL (74-106); Potassium 4.2 mmol/L (3.5-5.1); Sodium 140 mmol/L (136-145); Total Protein 8.3 g/dL (6.4-8.2); Troponin I < 0.05 ng/Ml (<0.06)
[2019-04-29 17:32] LABS: CREATININE 4.58 mg/dL (0.70-1.30)
--- NOTE | 2019-04-29 17:46 | W.ED.GENAD ---
Discharge Plan Disposition Patient Disposition: HOME Condition: Good Discharge Details Chief Complaint: Dizzy/Sync Clinical Impression: Dizziness Primary Care Provider: Jarad Keller ED Provider: Lashawn Fagan Home Meds and New Rx's Prescriptions: Continued losartan 50 mg tablet 50 mg PO DAILY RF: 0 tamsulosin 0.4 mg capsule 0.4 mg PO DAILY RF: 0 bumetanide 1 mg tablet See Rx Instructions .ROUTE .COMPLEX RF: 0 ProRenal QD 400-500 mcg-unit capsule 1 cap PO DAILY RF: 0 aspirin 325 mg tablet 325 mg PO DAILY RF: 0 Novolog Flexpen U-100 Insulin 100 unit/mL (3 mL) insulin pen 76 unit SC DAILY RF: 0 sevelamer carbonate [Renvela] 800 mg tablet 800 mg PO TID RF: 0 amlodipine 5 mg tablet 5 mg PO DAILY RF: 0 Adult 50 Plus Probiotic 4 billion cell capsule 4,000 mmu cells PO DAILY RF: 0 (DME) lancets 1 EACH misc 1 ea Miscellaneous QID Qty: 400 RF: 4 (DME) BD Regular Bevel Brilliant 1 EACH needle 1 ea Intrauterine AC Qty: 100 RF: 4 Novolog Flexpen U-100 Insulin 100 UNIT/1 ML insulin pen 12 unit SQ AC Qty: 3 RF: 12 pravastatin [Pravachol] 40 MG tablet 1 tab PO DAILY Qty: 90 RF: 4 gabapentin 300 MG capsule 1 tab PO TID Qty: 270 RF: 4 (DME) pen needle, diabetic 1 EACH needle 1 ea Sub-Q TID Qty: 100 RF: 12 (DME) Blood Glucose Test 1 EACH strip 1 ea Miscellaneous QID Qty: 400 RF: 6 (DME) V-GO 40 Device MISCELLANEOUS RF: 0 Discharge Instructions Instructions: Dizziness (ED) Additional Instructions: Stay hydrated and get plenty of rest. Follow-up with your scheduled dialysis tomorrow. Follow-up with your primary care doctor within the next week for reevaluation. Return to the emergency department if you develop any worsening or new concerning symptoms. Discharge Data Discharge Physician: Lashawn Fagan Medical Decision Making 59-year-old male with a history of anxiety, depression, CHF, diabetes, hypertension end-stage renal disease on dialysis who presents for dizziness with walking and standing at home today. Patient states that he did eat an edible prior to onset of symptoms which is unusual for him to eat. He states shortness of breath but none at present. Patient denies any chest pain, cough, vomiting, headache or palpitations. He states he had been feeling fine prior to onset of this. On arrival, EKG noted a rate of 94, sinus with PVCs/ventricular bigeminy with no acute ST ischemic changes. Vitals within normal limits. He appears nontoxic. Lungs clear. No focal deficits. Labs and imaging obtained and unremarkable. Troponin negative. Chest x-ray notes prominent pulmonary vascular consistent with edema. Does not appear consistent with pneumonia. Repeat EKG noted a rate of 87, sinus with occasional PVCs, no acute ST ischemic changes. Patient was given fluids here and ambulated and denied any dizziness, shortness of breath or any symptoms and requested to go home. He had a full session of dialysis tomorrow and is scheduled for his next session tomorrow. He is advised to follow-up with his primary care doctor return here with any concerns. Medical Records Medical records reviewed: Yes I reviewed the patient's medical records. Imaging Data Radiologic Study: Radiologist's impression: XR Chest, 2 Views Exam date and time: 04/29/2019 5:13 PM Age: 59 years old Clinical indication: Other: Dizzyness; Prior surgery; Surgery type: Bypass five years ago TECHNIQUE: Imaging protocol: XR of the chest Views: 2 views. COMPARISON: SC XR PORTABLE CHEST AP 10/12/2018 5:50 AM FINDINGS: Lungs: Low lung volumes. Prominent, indistinct pulmonary vasculature. Hazy left basilar opacity. Pleural space: Unremarkable. No pleural effusion. No pneumothorax. Heart/Mediastinum: Enlarged postsurgical cardiomediastinal silhouette. Bones/joints: Unremarkable. IMPRESSION: 1. Pulmonary edema. 2. Hazy left basilar opacity consistent with edema, atelectasis, aspiration or infection. Lab Data Lab results reviewed: Yes I reviewed the patient's lab results. Labs: Laboratory Tests Range/Units 04/29/19 04/29/19 17:00 17:00 WBC (4.4-10.8) k/cumm 6.31 RBC (4.50-6.00) m/cumm 3.57 L Hgb (13.5-17.5) g/dL 11.4 L Hct (40.0-50.0) % 34.4 L MCV (80-95) fL 96.4 H MCH (27.0-33.0) pg 31.9 MCHC (32.0-36.0) g/dL 33.1 RDW (11.8-14.1) % 14.6 H Plt Count (130-400) x1000/uL 149 MPV (8.0-11.0) fL 8.8 Immature Gran % 0.3 Neutrophils % 69.8 Lymphocytes % 17.3 Monocytes % 8.9 Eosinophils % 3.2 Basophils % 0.5 Absolute Neutrophils (1.2-6.7) k/cumm 4.41 Absolute Lymphocytes (1.2-3.4) k/cumm 1.09 L Absolute Monocytes (0.11-0.7) k/cumm 0.56 Absolute Eosinophils (0.0-0.7) k/cumm 0.20 Absolute Basophils (0.0-0.2) k/cumm 0.03 Sodium (136-145) mmol/L 140 Potassium (3.5-5.1) mmol/L 4.2 Chloride (98-107) mmol/L 97 L Carbon Dioxide (21.0-32.0) mmol/L 35.0 H Anion Gap (3-11) mmol/L 8.0 BUN (7-18) mg/dL 31 H Creatinine (0.70-1.30) mg/dL 4.58 H* Estimated GFR/1.73 m2 (mL/min/1.73m2) 13.17 Glucose (74-106) mg/dL 82 Calcium (8.5-10.1) mg/dL 8.8 Magnesium (1.8-2.4) mg/dL 2.0 Total Bilirubin (0.2-1.0) mg/dL 0.3 AST (15-37) U/L 22 ALT (16-63) U/L 29 Alkaline Phosphatase (46-116) U/L 104 Troponin I (<0.06) ng/Ml < 0.05 Total Protein (6.4-8.2) g/dL 8.3 H Albumin (3.4-5.0) g/dL 3.7 ECG Data Attestation: I personally reviewed and interpreted this ECG (s) as follows: Interpretation: #1 --Rate of 94, sinus, frequent PVCs/ventricular bigeminy, T wave inversion in lead III, seen in previous EKG. No acute ST elevation or depression. NH 184. QTc 405. QRS 104. #2 --Rate of 87, sinus, occasional PVCs, T wave inversion in lead III seen in previous. No acute ST elevation or depression. NH 184. QTc 459. QRS 102. HPI General Mode of arrival: ambulatory. Date/Time Provider Initiated Documentation: 04/29/19 16:50. Limitations to Documentation: no limitations. Information obtained by: patient. History of Present Illness 59 year old M presents to the emergency department with the chief complaint of Dizziness, Patient started experiencing this hour(s) and it has been intermittent. No relieving factors improve symptom(s), Movement worsens symptoms . Patient notes shortness of breath (Chronic, intermittent); denies chest pain, cough, diaphoresis, fever/chills, headaches, loss of appetite, malaise, nausea/vomiting, rash and seizure. Patient did receive the following treatments prior to arrival, none Related Data Home Medications Medication Instructions Recorded Confirmed lancets #400 ea 08/18/12 01/12/19 BD Regular Bevel Brilliant #100 ndl 08/31/12 01/12/19 Novolog Flexpen U-100 Insulin 12 unit SQ AC #3 pen 09/18/12 04/29/19 pravastatin [Pravachol] 1 tab PO DAILY #90 tab 08/07/13 04/29/19 gabapentin 1 tab PO TID #270 cap 10/15/13 04/29/19 pen needle, diabetic #100 ndl 11/15/13 01/12/19 Blood Glucose Test #400 strip 12/05/13 01/12/19 bumetanide 1 mg tablet See Rx Instructions .ROUTE 09/15/18 04/29/19 .COMPLEX tab losartan 50 mg tablet 50 mg PO DAILY 09/15/18 04/29/19 mv,[id number] 1 cap PO DAILY cap 09/15/18 04/29/19 oil 400 mcg-500 unit capsule tamsulosin 0.4 mg capsule 0.4 mg PO DAILY 09/15/18 04/29/19 lactobacillus combination no.9 4 4,000 mmu cells PO DAILY 01/12/19 04/29/19 billion cell capsule amlodipine 5 mg tablet 5 mg PO DAILY 04/27/19 04/29/19 aspirin 325 mg tablet 325 mg PO DAILY 04/27/19 04/29/19 insulin aspart U-100 100 unit/mL 76 unit SC DAILY ml 04/27/19 04/29/19 (3 mL) subcutaneous pen sevelamer carbonate 800 mg tablet 800 mg PO TID 04/27/19 04/29/19 V-GO 40 04/29/19 04/29/19 Allergies Allergy/AdvReac Type Severity Reaction Status Date / Time ciprofloxacin Allergy Intermediate rash from Unverified 04/29/19 16:57 IV General Stated Complaint: Dizzy/Sync ABBIE: 2 Review of Systems All systems reviewed & are unremarkable except as noted in HPI and below Constitutional Constitutional: Reports as per HPI, Denies chills and Denies fever(s) Eyes Eyes: Denies blurry vision ENT Ears, Nose, Mouth, and Throat: Reports dizziness, Denies sore throat and Denies throat swelling Cardiovascular Cardiovascular: Denies chest pain and Reports dyspnea Respiratory Respiratory: Denies cough and Reports dyspnea Gastrointestinal Gastrointestinal: Denies abdominal pain, Denies diarrhea and Denies vomiting Genitourinary Genitourinary: Denies hematuria and Denies dysuria Musculoskeletal Musculoskeletal: Denies back pain and Denies numbness Integumentary/Breasts Skin/Breast: Denies lesions and Denies rash Neurologic Neurologic: Reports dizziness, Denies focal weakness and Denies numbness Allergic/Immunologic Allergic/Immunologic: Denies throat swelling [facility] Medical History Anxiety with depression (Acute) Arteriovenous fistula (Chronic) lt arm CHF (congestive heart failure) (Chronic) Colorectal polyps (Acute ~01/22/19) hyperplastic polyps Coronary arteriosclerosis (Chronic) Diabetic retinopathy (Chronic) ESRD (end stage renal disease) (Chronic) HTN (hypertension) (Chronic) Type 2 diabetes mellitus (Chronic) Surgical History Arthroplasty of knee (Inactive ~1973) per pt knee arthroscopy not a TKA! Open Carpal Tunnel release (Inactive ~2001) b/l S/P CABG (coronary artery bypass graft) (Chronic) S/P colonoscopy (Inactive ~01/22/19) 2018- not clean enough. Had 8 benign polyps per patient Family History Father Heart disease Diabetes Mother Diabetes Renal disease Brother , from cardiac disease in his 50's Heart disease Social History Smoking/Tobacco Use Status: Former Tobacco Use Alcohol Intake: former Drug use: Current Sobriety Substance use type: does not use and marijuana Details: marijuana in the 70's Do you feel safe at home: Yes Do you feel safe in your relationship?: Yes Exam Const General: cooperative, healthy appearing and no acute distress HENMT Head: normal to inspection Face and sinus: normal facial exam Eyes General: appearance normal, both eyes and all related structures EOM: EOM intact bilaterally Neck Neck: normal visual inspection and No submandibular swelling Lymphatic: no lymphadenopathy noted Chest Chest: normal inspection of the chest and no tenderness Resp Effort & Inspection: normal respiratory effort and able to speak in complete sentences Auscultation: clear to auscultation bilaterally Cardio Rate: regular rate Rhythm: regular rhythm GI Inspection: normal to inspection Palpation: soft, not firm, not rigid and nontender Auscultation: normal bowel sounds Back/Spine/Pelvis Pelvis: no pain with anterior-posterior compression Skin General skin exam: no rashes or lesions noted Neuro General: alert, awake and oriented x3 Cognition: normal cognition Speech: speech normal Motor: muscle tone normal throughout Sensory Exam: no sensory deficits noted Extrem General: normal to inspection, full ROM, normal capillary refill, no calf tenderness bilaterally and no edema Psych Appearance: grossly normal Mental Status: mental status grossly normal Speech and Movement: speech and movement normal Affect: normal affect Course Vital Signs Vital signs: Vital Signs Temperature 97.5 F L 04/29/19 16:52 Pulse 92 H 04/29/19 16:52 Respiratory Rate 16 04/29/19 16:52 Blood Pressure 143/81 H 04/29/19 16:52 Pulse Oximetry 97 04/29/19 16:52 Temperature 97.5 F L 04/29/19 16:52 Temperature Source Skin 04/29/19 16:52 Pulse 92 H 04/29/19 16:52 Respiratory Rate 18 04/29/19 17:03 Respiratory Effort 04/29/19 17:03 Respiratory Depth Normal 04/29/19 17:03 Respiratory Pattern Normal 04/29/19 17:03 Blood Pressure 143/81 H 04/29/19 16:52 Blood Pressure Position Supine 04/29/19 16:52 Pulse Oximetry 97 04/29/19 16:52 Oxygen Delivery Method Room Air 04/29/19 16:52 Oxygen Flow Rate 0 04/29/19 16:52 Pain Level 0 04/29/19 16:52 Lab/Test Results Lab/Test Results: Laboratory Tests Range/Units 04/29/19 04/29/19 17:00 17:00 WBC (4.4-10.8) k/cumm 6.31 RBC (4.50-6.00) m/cumm 3.57 L Hgb (13.5-17.5) g/dL 11.4 L Hct (40.0-50.0) % 34.4 L MCV (80-95) fL 96.4 H MCH (27.0-33.0) pg 31.9 MCHC (32.0-36.0) g/dL 33.1 RDW (11.8-14.1) % 14.6 H Plt Count (130-400) x1000/uL 149 MPV (8.0-11.0) fL 8.8 Immature Gran % 0.3 Neutrophils % 69.8 Lymphocytes % 17.3 Monocytes % 8.9 Eosinophils % 3.2 Basophils % 0.5 Absolute Neutrophils (1.2-6.7) k/cumm 4.41 Absolute Lymphocytes (1.2-3.4) k/cumm 1.09 L Absolute Monocytes (0.11-0.7) k/cumm 0.56 Absolute Eosinophils (0.0-0.7) k/cumm 0.20 Absolute Basophils (0.0-0.2) k/cumm 0.03 Sodium (136-145) mmol/L 140 Potassium (3.5-5.1) mmol/L 4.2 Chloride (98-107) mmol/L 97 L Carbon Dioxide (21.0-32.0) mmol/L 35.0 H Anion Gap (3-11) mmol/L 8.0 BUN (7-18) mg/dL 31 H Creatinine (0.70-1.30) mg/dL 4.58 H* Estimated GFR/1.73 m2 (mL/min/1.73m2) 13.17 Glucose (74-106) mg/dL 82 Calcium (8.5-10.1) mg/dL 8.8 Magnesium (1.8-2.4) mg/dL 2.0 Total Bilirubin (0.2-1.0) mg/dL 0.3 AST (15-37) U/L 22 ALT (16-63) U/L 29 Alkaline Phosphatase (46-116) U/L 104 Troponin I (<0.06) ng/Ml < 0.05 Total Protein (6.4-8.2) g/dL 8.3 H Albumin (3.4-5.0) g/dL 3.7
[2019-04-29] MEDS: Normal Saline 250 ML IV (18:18)
== END 2019-04-29 19:50 | disposition home or self-care (01) ==
PROVIDERS: Emergency Provider Physician Assistant; PCP Nurse Practitioner Family
DX: R42 Dizziness and giddiness (principal); I13.2 Hypertensive heart and chronic kidney disease with heart failure and with stage 5 chronic kidney disease, or end stage renal disease; N18.6 End stage renal disease; Z99.2 Dependence on renal dialysis; I50.9 Heart failure, unspecified; E11.22 Type 2 diabetes mellitus with diabetic chronic kidney disease; Z79.4 Long term (current) use of insulin
CPT/HCPCS: 36415; 80053; 93005; 96360; 99285; 71046; 83735; 84484; 85025; 93010

== ENCOUNTER → 2019-04-30 13:39 | Outpatient (BNVA) | payer MEDICARE, MEDICAID, SELFPAY | PROVIDERS: PCP Nurse Practitioner Family; Referring Provider Nurse Practitioner Family; Visit Provider Student in an Organized Health Care Education/Training Program | DX: M65.332 Trigger finger, left middle finger (principal); M65.341 Trigger finger, right ring finger; E11.22 Type 2 diabetes mellitus with diabetic chronic kidney disease; N18.6 End stage renal disease; I13.2 Hypertensive heart and chronic kidney disease with heart failure and with stage 5 chronic kidney disease, or end stage renal disease; I50.30 Unspecified diastolic (congestive) heart failure; Z99.2 Dependence on renal dialysis | CPT/HCPCS: 20550; 99203; 99214; J1030 ==

== ENCOUNTER 2019-07-29 19:01 | Emergency (ER) | payer MEDICARE, SELFPAY ==
[2019-07-29] VITALS (15 sets, daily range): BP systolic 116–161; BP diastolic 62–97; PULSE 54–109; RESP 12–22; TEMP 36.6; O2SAT 89–98
--- NOTE | 2019-07-29 19:15 | DI.CT_ITS ---
EXAM: CT CHEST/ABD/PEL WO and thoracic and lumbar reconstructions CLINICAL HISTORY: fall down 6 steps COMPARISON: CT THORACIC LUMBAR SPINE REC from 07/29/2019 FINDINGS: CT examination of the chest, abdomen, and pelvis was performed without contrast administration. Adria tional reconstructions in multiple planes of thoracic spine and lumbar spine were obtained. There are fractures of the right clavicle and right humeral head, please see accompanying plain film reports. A nondisplaced fracture of the medial aspect of the scapula is also noted. There are fractures of the transverse processes of C7 and T1 through T4 on the right with associated posterior fractures of ribs 1 through 4 on the right. There are fractures of left L1 and L2 transver se process. No additional fracture identified. Pleural based radiodensities with associated slight intraparenchymal ground-glass opacities noted pos teriorly at the right lung apex in the region described. Transverse process and rib fractures, presum ed mild pulmonary contusion. Left basilar atelectasis, left basilar pulmonary contusion not entirely excluded but less likely. No significant pneumothorax or hemothorax. No gross mediastinal hematoma by noncontrast criteria. The liver, spleen, pancreas, adrenals and kidneys are unremarkable by noncontrast criteria. No abdom inal aortic aneurysm or injury by noncontrast criteria. No free intraperitoneal air or free intraper itoneal fluid. No significant abdominal wall contusion or hernia. No abdominal or pelvic adenopathy . No focal bowel pathology. No gross fracture seen involving the hips or pelvis. IMPRESSION: Transverse process fractures and rib fractures on the right from T1 through T4 with associated presum ed localized pleural fluid and minimal pulmonary contusion. Right humeral head fracture and right clavicular fracture. Nondisplaced fracture of the scapula also. L1 and L2 left transverse process fractures. No other significant injury.
--- NOTE | 2019-07-29 19:15 | DI.CT_ITS ---
EXAM: CT HEAD CERVICAL SPINE WO CLINICAL HISTORY: fall down 6 steps TECHNIQUE: The exam was performed without contrast. COMPARISON: RENAL COLIC WO CONTRAST from 09/24/2011 CT THORACIC LUMBAR SPINE REC from 07/29/2019 FINDINGS: CT examination of the cervical spine was performed utilizing multi slice acquisition and multi planar reconstruction. There is moderate degenerative change of the cervical spine. There is a nondisplac ed C7 right transverse process fracture and fracture of the right T1 transverse process and proximal first rib. No additional cervical spine fracture. No facet dislocation. Tracheo laryngeal structur es appear grossly intact. No cervical mass or adenopathy. Noncontrast cranial CT was performed. There is a 6 x 4 millimeter high attenuation focus in the left frontal white matter measuring about 70 Hounsfield units, consistent with acute intracranial hemorrh age. No additional intracranial hemorrhage identified. Old right lacunar infarct noted. Mild cereb ral atrophy noted. Increased radiodensity in deformity of right optic globe, presumably chronic, ple ase correlate clinically. No evidence of acute craniofacial fracture. Paranasal sinuses and mastoid air cells are predominantl y clear. IMPRESSION: Small left frontal white matter intracranial hemorrhage. No additional intracranial findings. High density appearance of right optic globe, presumably chronic but please correlate clinically. Nondisplaced right transverse process fractures of C 7 and T1 and the proximal right 1st rib. No add itional cervical spine fractures.
[2019-07-29] MEDS: ACETAMINOPHEN 1,000 MG/100 ML BTL 400 MG IVPB (19:40)
[2019-07-29 19:44] LABS: Abs Immature Grans 0.08 k/cumm (0.0-0.09); Absolute Basophil Count 0.02 k/cumm (0.0-0.2); Absolute Eosinophil Count 0.25 k/cumm (0.0-0.7); Absolute Lymphocyte Count 1.02 k/cumm (1.2-3.4); Absolute Monocyte Count 0.41 k/cumm (0.11-0.7); Absolute Neutrophil Count 4.56 k/cumm (1.2-6.7); Basophils % 0.3; Eosinophils % 3.9; HCT 34.4 % (40.0-50.0); HGB 11.8 g/dL (13.5-17.5); Immature Grans % 1.3 %; Lymphocytes % 16.1; Mean Corp. HGB Concentration 34.3 g/dL (32.0-36.0); Mean Corpuscular Hemoglobin 32.4 pg (27.0-33.0); Mean Corpuscular Volume 94.5 fL (80-95); Mean Platelet Volume 9.7 fL (8.0-11.0); Monocytes % 6.5; Neutrophils % 71.9; Platelet Count 157 x1000/uL (130-400); RBC 3.64 m/cumm (4.50-6.00); RBC Distribution Width 14.1 % (11.8-14.1); White Blood Cell Count 6.34 k/cumm (4.4-10.8)
--- NOTE | 2019-07-29 19:45 | DI.RAD_ITS ---
EXAM: XR SHOULDER RT COMPLETE 2+V and right humerus CLINICAL HISTORY: pain, injury COMPARISON: XR HUMERUS RT from 07/29/2019 FINDINGS: Four views of the shoulder and four views of the humerus were obtained. There is a fracture of the m id clavicle with mild displacement and mild comminution. There is a comminuted fracture of the great er tuberosity of the humerus. No glenohumeral dislocation seen. No additional humeral fracture. Probable nondisplaced fracture of the medial aspect of the scapula superiorly. This was also seen on CT.
[2019-07-29 19:57] LABS: Prothrombin Time 9.9 sec (9.3-11.0)
[2019-07-29 19:59] LABS: ALT 35 U/L (16-63); AST 26 U/L (15-37); Albumin 3.6 g/dL (3.4-5.0); Alkaline Phosphatase 97 U/L (46-116); Anion Gap 5.3 mmol/L (3-11); BUN 33 mg/dL (7-18); Bilirubin, Total 0.3 mg/dL (0.2-1.0); CO2 33.7 mmol/L (21.0-32.0); Calcium 8.6 mg/dL (8.5-10.1); Chloride 97 mmol/L (98-107); Estimated GFR 12.91 (mL/min/1.73m2); Glucose 154 mg/dL (74-106); Potassium 3.5 mmol/L (3.5-5.1); Sodium 136 mmol/L (136-145); Total Protein 7.8 g/dL (6.4-8.2)
--- NOTE | 2019-07-29 20:00 | NUR.NOTE ---
KAREEM Lyles from home with c/o right shoulder pain s/p fall. Pt does not recall why he fell, unable to state if he was going up or down the stairs when he fell down 6 [address] stairs with a +LOC, aprox 5 minutes per OUTSOLE SKIVER. States OUTSOLE SKIVER at home to put his to bed. Arrives with swelling and abrasion to right forearm, bruising to right shoulder, axilla, right upper arm and right upper back. Abrasions to left forehead, femi knees. +CSM to all extremities. LAVF. LSCTA, Denies chest pain. RA sats 93% HD pt, /, last HD 07/29/19. #20 diffusics to RAC. SR on monitor, frequent PVC's.
[2019-07-29 20:04] LABS: CREATININE 4.66 mg/dL (0.70-1.30)
--- NOTE | 2019-07-29 20:10 | NUR.NOTE ---
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 right pupil irregularly shaped. left pupil round, reactive. LAVF +bruit, +thrill.
--- NOTE | 2019-07-29 20:41 | DI.VRAD_ITS ---
Addendum created by Carmen Sung MD on 07/29/2019 8:51:07 PM EDT ADDENDUM: Critical findings within the report were discussed with Joselyn Grajeda at 07/29/2019 8:51 PM EDT Initial report created on 07/29/2019 8:41:34 PM EDT PROCEDURE INFORMATION: Exam: CT Head Without Contrast Exam date and time: 07/29/2019 7:31 PM Age: 59 years old Clinical indication: Other: Trauma, fall with loc; Neck pain; Patient HX: Fall down 6 steps. TECHNIQUE: Imaging protocol: Computed tomography of the head without contrast. Radiation optimization: All CT scans at this facility use at least one of these dose optimization techniques: automated exposure control; mA and/or kV adjustment per patient size (includes targeted exams where dose is matched to clinical indication); or iterative reconstruction. COMPARISON: No relevant prior studies available. FINDINGS: Brain: 6 x 4 mm intraparenchymal hematoma in left anterior frontal subcortical white matter. This finding is seen on axial image 31 and coronal image 28.rrrrr 6 x 3 mm intraparenchymal hematoma in right parietal deep white matter seen on axial image 37. No mass effect. No subarachnoid bleed. No epidural or subdural hemorrhage. Old lacunar infarct in right basal ganglia . There are areas of diminished density in the white matter bilaterally consistent with chronic small vessel ischemic changes. Shane-white matter differentiation is intact and unremarkable. No mass lesion. Ventricles: Normal. No ventriculomegaly. Bones/joints: Unremarkable. No acute fracture. Sinuses: Visualized sinuses are unremarkable. No fluid levels. Mastoid air cells: Visualized mastoid air cells are well aerated. Orbits: Diffusely hyper dense right orbital globe. Soft tissues: Unremarkable. IMPRESSION: 1. Small intraparenchymal hematomas measuring 6 x 4 mm are seen in the left anterior frontal and right parietal lobes. No mass effect. 2. Diffusely hyper dense right orbital globe. Finding is consistent with vitreous hemorrhage. This finding is age indeterminate and likely chronic. 3. Old lacunar infarct in right basal ganglia . 4. Chronic ischemic changes bilaterally. PROCEDURE INFORMATION: Exam: CT Cervical Spine Without Contrast Exam date and time: 07/29/2019 7:31 PM Age: 59 years old Clinical indication: Other: Trauma, fall with loc; Neck pain; Patient HX: Fall down 6 steps. TECHNIQUE: Imaging protocol: Computed tomography images of the cervical spine without contrast. Radiation optimization: All CT scans at this facility use at least one of these dose optimization techniques: automated exposure control; mA and/or kV adjustment per patient size (includes targeted exams where dose is matched to clinical indication); or iterative reconstruction. COMPARISON: No relevant prior studies available. FINDINGS: Vertebrae: No acute fracture. Normal alignment. Discs/Spinal canal/Neural foramina: No disc herniations. No spinal canal stenosis. No neural foraminal narrowing. Other bones/joints: No fracture or dislocation. Soft tissues: Unremarkable. Lungs: Lung apices are normal. Other findings: No disc protrusion or extrusion. IMPRESSION: No fracture or dislocation. Dictated and Authenticated by: Carmen Sung MD. Ordering:CAMERON Alves MD
--- NOTE | 2019-07-29 20:50 | DI.VRAD_ITS ---
PROCEDURE INFORMATION: Exam: CT Chest Without Contrast Exam date and time: 07/29/2019 8:17 PM Age: 59 years old Clinical indication: Other: Right shoulder pain; Chest pain; Type not specified; Patient HX: Fall down 6 steps with loc. Bruising on RT side TECHNIQUE: Imaging protocol: Computed tomography of the chest without contrast. Radiation optimization: All CT scans at this facility use at least one of these dose optimization techniques: automated exposure control; mA and/or kV adjustment per patient size (includes targeted exams where dose is matched to clinical indication); or iterative reconstruction. COMPARISON: CR XR CHEST 2V PA LATERAL 04/29/2019 5:08 PM FINDINGS: Lungs: Small left lower lobe dependent parenchymal disease likely incidental left lower lobe infiltrate. Pleural space: Mild right upper lobe posterior pleural based parenchymal disease likely pleural based lung contusions. Heart: Unremarkable. No cardiomegaly. No pericardial effusion. Mediastinum: Surgical sternal wires in place with surgical changes in mediastinum. Aorta: Unremarkable. No aortic aneurysm. Lymph nodes: Unremarkable. No enlarged lymph nodes. Bones/joints: Nondisplaced fracture of right mid clavicle. Comminuted mildly displaced fracture of right lateral humeral head involving the greater tuberosity. No involvement of the glenohumeral joint space seen. Nondisplaced fracture of the supraspinatus right scapula seen on coronal images 96-99. Nondisplaced fracture of right lateral 1st and 2nd ribs. Soft tissues: Soft tissue contusions with small soft tissue hematoma measuring 2.9 x 2.7 cm is seen in right axilla. IMPRESSION: 1. Nondisplaced fracture of right mid clavicle. 2. Comminuted mildly displaced fracture of right lateral humeral head involving the greater tuberosity. No involvement of the glenohumeral joint space seen. 3. Nondisplaced fracture of the supraspinatus right scapula seen on coronal images 96-99. 4. Mild right upper lobe posterior pleural based parenchymal disease likely pleural based lung contusions. 5. Small left lower lobe dependent parenchymal disease likely incidental left lower lobe infiltrate. 6. Nondisplaced fracture of right lateral 1st and 2nd ribs. 7. Soft tissue contusions with small soft tissue hematoma measuring 2.9 x 2.7 cm is seen in right axilla. PROCEDURE INFORMATION: Exam: CT Abdomen And Pelvis Without Contrast Exam date and time: 07/29/2019 8:17 PM Age: 59 years old Clinical indication: Other: Right shoulder pain; Chest pain; Type not specified; Patient HX: Fall down 6 steps with loc. Bruising on RT side TECHNIQUE: Imaging protocol: Computed tomography of the abdomen and pelvis without contrast. Radiation optimization: All CT scans at this facility use at least one of these dose optimization techniques: automated exposure control; mA and/or kV adjustment per patient size (includes targeted exams where dose is matched to clinical indication); or iterative reconstruction. COMPARISON: CR XR CHEST 2V PA LATERAL 04/29/2019 5:08 PM FINDINGS: Liver: Normal. No mass. Gallbladder and bile ducts: Normal. No calcified stones. No ductal dilation. Pancreas: Normal. No ductal dilation. Spleen: Normal. No splenomegaly. Adrenals: Normal. No mass. Kidneys and ureters: Normal. No hydronephrosis. Stomach and bowel: Unremarkable. No obstruction. No mucosal thickening. Appendix: No evidence of appendicitis. Intraperitoneal space: No free fluid or fluid collections. No inflammatory changes. No free air. Vasculature: Unremarkable. No abdominal aortic aneurysm. Lymph nodes: Unremarkable. No enlarged lymph nodes. Bladder: Unremarkable as visualized. Reproductive: Unremarkable as visualized. Bones/joints: Nondisplaced fractures of left L1, L2 transverse process. Soft tissues: Unremarkable. IMPRESSION: 1. No evidence of visceral organ or vascular injury. 2. Nondisplaced fractures of left L1, L2 transverse process. Dictated and Authenticated by: Carmen Sung MD. Ordering:CAMERON Alves MD
--- NOTE | 2019-07-29 21:17 | NUR.NOTE ---
Changed to hard collar. Pt aware of plan to tx to [facility].
[2019-07-29] MEDS: fentaNYL 100 MCG/2 ML VIAL 50 MCG IVP (21:28)
--- NOTE | 2019-07-29 21:30 | DI.RAD_ITS ---
EXAM: XR HIP LT AP LAT ONLY CLINICAL HISTORY: trauma, fall down 6 steps TECHNIQUE: COMPARISON: No exams were available for comparison FINDINGS: Two views of the hip were obtained. No fracture seen. IMPRESSION:
--- NOTE | 2019-07-29 21:36 | DI.VRAD_ITS ---
PROCEDURE INFORMATION: Exam: XR Right Humerus Exam date and time: 07/29/2019 8:56 PM Age: 59 years old Clinical indication: Pain; Upper arm; Right TECHNIQUE: Imaging protocol: XR Right humerus Views: 2 or more views. COMPARISON: No relevant prior studies available. FINDINGS: Bones/joints: Mildly displaced fracture of the greater tuberosity of the humeral head. No fracture of mid or distal humerus. Soft tissues: Normal. IMPRESSION: Mildly displaced fracture of the greater tuberosity of the humeral head. Dictated and Authenticated by: Carmen Sung MD. Ordering:CAMERON Alves MD
--- NOTE | 2019-07-29 21:43 | NUR.NOTE ---
HERVE Grajeda spoke with pt and son to inform of dx and plan.
--- NOTE | 2019-07-29 21:44 | NUR.NOTE ---
RA sat to 87% after fentanyl. Placed on 1L O2 NC, sat to 98%
--- NOTE | 2019-07-29 21:50 | DI.VRAD_ITS ---
PROCEDURE INFORMATION: Exam: XR Left Hip with Pelvis when Performed Exam date and time: 07/29/2019 9:44 PM Age: 59 years old Clinical indication: Hip pain; Left hip TECHNIQUE: Imaging protocol: XR Left hip with pelvis when performed. Views: 2 or 3 views. COMPARISON: CT CHEST/ABD/PEL WO 07/29/2019 8:16 PM FINDINGS: Bones/joints: No evidence of fracture in femoral head or neck. Femoral head is situated within the acetabulum. No evidence of fracture seen in superior or inferior pubic rami. No fracture or dislocation. Soft tissues: Unremarkable. IMPRESSION: No fracture or dislocation. Dictated and Authenticated by: Carmen Sung MD. Ordering:CAMERON Alves MD
--- NOTE | 2019-07-29 21:58 | DI.VRAD_ITS ---
PROCEDURE INFORMATION: Exam: XR Right Shoulder Exam date and time: 07/29/2019 8:55 PM Age: 59 years old Clinical indication: Shoulder; Right; Patient HX: Fall down 6 steps. Pain TECHNIQUE: Imaging protocol: XR Right shoulder. Views: 2 or more views. COMPARISON: No relevant prior studies available. FINDINGS: Bones/joints: Mildly displaced fracture through the greater tuberosity of proximal humerus. Nondisplaced fractures of right clavicle and right supraspinatus scapula. Soft tissues: Normal. IMPRESSION: 1. Mildly displaced fracture through the greater tuberosity of proximal humerus. 2. Nondisplaced fractures of right clavicle and right supraspinatus scapula. Dictated and Authenticated by: Carmen Sung MD. Ordering:CAMERON Alves MD
--- NOTE | 2019-07-29 21:58 | ED.GENADUL_ITS ---
Discharge Plan Disposition Patient Disposition: [facility] Condition: Stable Discharge Details Chief Complaint: Trauma Clinical Impression: Intraparenchymal hematoma of brain due to trauma, Fracture of lumbar spine, Fracture, ribs, Contusion of lung, Fracture, clavicle closed, shaft, Humeral head fracture, Fracture, scapula, Fall Primary Care Provider: Jarad Keller ED Provider: Joselyn Grajeda Home Meds and New Rx's Prescriptions: No Action losartan 50 mg tablet 50 mg PO DAILY RF: 0 tamsulosin 0.4 mg capsule 0.4 mg PO DAILY RF: 0 bumetanide 1 mg tablet See Rx Instructions .ROUTE .COMPLEX RF: 0 ProRenal QD 400-500 mcg-unit capsule 1 cap PO DAILY RF: 0 aspirin 325 mg tablet 325 mg PO DAILY RF: 0 Novolog Flexpen U-100 Insulin 100 unit/mL (3 mL) insulin pen 76 unit SC DAILY RF: 0 sevelamer carbonate [Renvela] 800 mg tablet 800 mg PO TID RF: 0 amlodipine 5 mg tablet 5 mg PO DAILY RF: 0 Adult 50 Plus Probiotic 4 billion cell capsule 4,000 mmu cells PO DAILY RF: 0 (DME) lancets 1 EACH misc 1 ea Miscellaneous QID Qty: 400 RF: 4 (DME) BD Regular Bevel Cresson 1 EACH needle 1 ea Intrauterine AC Qty: 100 RF: 4 Novolog Flexpen U-100 Insulin 100 UNIT/1 ML insulin pen 12 unit SQ AC Qty: 3 RF: 12 pravastatin [Pravachol] 40 MG tablet 1 tab PO DAILY Qty: 90 RF: 4 gabapentin 300 MG capsule 1 tab PO TID Qty: 270 RF: 4 (DME) pen needle, diabetic 1 EACH needle 1 ea Sub-Q TID Qty: 100 RF: 12 (DME) Blood Glucose Test 1 EACH strip 1 ea Miscellaneous QID Qty: 400 RF: 6 (DME) V-GO 40 Device MISCELLANEOUS RF: 0 Discharge Data Discharge Date/Time-TO BE ENTERED AT DEPARTURE: 07/29/19 22:45 Medical Decision Making Is a very pleasant 59-year-old patient presenting to the emergency room today for a fall. Patient is unable to recall the events preceding the fall or why he fell however at this time patient is predominantly complaining of right shoulder pain. Patient arrives via EMS reportedly per the son who witnessed the fall patient had a loss of consciousness after falling down 5-6 stairs and striking his head. Patient presents with obvious abrasions to the posterior scalp and right arm. Patient complaining of right shoulder pain. Patient denies headache, dizziness, nausea, vomiting or vision change. No associated tinnitus or hearing changes. Denies neck pain does complain of mild lower back pain. Has no left arm complaints or lower extremity complaints. Denies chest pain, difficulty breathing shortness of breath or wheezing. Denies any abdominal pain. After conversation with the son who did witness the fall he fell going down the steps after tripping striking his head on an overhead threshold then sliding down the remainder of the stairs to a wooden landing. Patient had a loss of consciousness for several minutes and awoke spontaneously. Patient does have a medical history including hemodialysis which he received yesterday as well as congestive heart failure, hypertension and type 2 diabetes. Per the son patient was acting normally prior to fall he did eat dinner without difficulty and was at his baseline prior to tripping. Given patient's difficulty recalling events preceding his fall will check CT of head neck chest abdomen and pelvis as well as plan to x-ray the right shoulder and humerus. Patient agrees with this plan of care. Given his hemodialysis status will try offer med for pain relief prior to imaging. CTs reveal a small intraparenchymal hematoma measuring 6.4 mm seen in the right anterior frontal and right parietal lobes no mass-effect noted. Chronic findings also noted. No cervical spine fracture or dislocation noted. Patient's chest CT reveals a nondisplaced fracture of the right mid clavicle as well as comminuted mildly displaced fracture of the right lateral humeral head involving the greater tuberosity. A nondisplaced fracture of the supraspinatus of the right scapula. Mild right upper lobe posterior findings consistent with possible contusion, left lower lobe findings consistent with possible infiltrate. Nondisplaced fractures of the right lateral first and second ribs. No evidence of visceral organ or vascular injury. Nondisplaced fractures of the left L1 and L2 transverse processes are present. Given patient is a dialysis patient will plan to transfer to [facility] trauma center. Spoke with [facility] Dr. Dover who will accept this patient's transfer, recommends transfer to the ED directly and trauma team will evaluate the patient there prior to admission. Patient had persistent pain after CT therefore fentanyl 50 mcg ordered. Patient had improved after fentanyl however he did have a mild desaturation of his oxygen which improved with 1 L of nasal cannula Sling placed on right shoulder. Patient did arrive with a inflatable cervical collar which was replaced with a rigid collar until trauma team evaluates the patient. Patient agrees with plan of transfer. Family agrees with plan of transfer. Patient's vital signs remained stable HPI General Date/Time Provider Initiated Documentation: 07/29/19 19:07 . HPI Narrative: This is a 59-year-old patient who presents after a fall down 5-6 steps in his home. Per son's history this was witnessed by his son. Patient tripped and fell down 5-6 stairs he struck his head on an overhead threshold then slipped and slid down the remainder of the stairs on his right side. Patient lost consciousness for a few minutes then and roused on his own. Patient denies headache at this time, denies dizziness, nausea, vomiting. Denies any obvious vision vision change or ringing in the ears. Denies any neck pain. Patient is concerned with right sided shoulder pain as well as mild lower back pain. Patient denies any radicular symptoms into his legs. Patient denies any numbness, tingling or weakness of arms or legs. He does have some baseline neuropathy in his lower extremities which is unchanged. Patient denies any chest or abdominal pain. Denies difficulty breathing shortness of breath or wheezing. Patient does have notable abrasions to his right arm and bilateral anterior knees. Patient arrives via EMS. Patient is speaking and in no apparent distress at this time again predominantly complaining of right arm pain. Per patient's history he does not know why he fell. He does not recall the events prior to his fall. Patient reports he had been feeling well today otherwise. Related Data Home Medications Medication Instructions Recorded Confirmed lancets #400 ea 08/18/12 04/30/19 BD Regular Bevel Cresson #100 ndl 08/31/12 04/30/19 Novolog Flexpen U-100 Insulin 12 unit SQ AC #3 pen 09/18/12 04/30/19 pravastatin [Pravachol] 1 tab PO DAILY #90 tab 08/07/13 07/29/19 gabapentin 1 tab PO TID #270 cap 10/15/13 07/29/19 pen needle, diabetic #100 ndl 11/15/13 04/30/19 Blood Glucose Test #400 strip 12/05/13 04/30/19 bumetanide 1 mg tablet See Rx Instructions .ROUTE 09/15/18 07/29/19 .COMPLEX tab losartan 50 mg tablet 50 mg PO DAILY 09/15/18 07/29/19 Brianda [id number] 1 cap PO DAILY cap 09/15/18 07/29/19 oil 400 mcg-500 unit capsule tamsulosin 0.4 mg capsule 0.4 mg PO DAILY 09/15/18 07/29/19 lactobacillus combination no.9 4 4,000 mmu cells PO DAILY 01/12/19 07/29/19 billion cell capsule amlodipine 5 mg tablet 5 mg PO DAILY 04/27/19 07/29/19 aspirin 325 mg tablet 325 mg PO DAILY 04/27/19 07/29/19 insulin aspart U-100 100 unit/mL 76 unit SC DAILY ml 04/27/19 04/29/19 (3 mL) subcutaneous pen sevelamer carbonate 800 mg tablet 800 mg PO TID 04/27/19 07/29/19 V-GO 40 04/29/19 04/30/19 Allergies Allergy/AdvReac Type Severity Reaction Status Date / Time ciprofloxacin Allergy Intermediate rash from Verified 04/30/19 13:42 IV Penicillins Allergy Other (See Unverified 07/29/19 19:08 Comment) General Stated Complaint: Trauma ABBIE: 2 Review of Systems All systems reviewed & are unremarkable except as noted in HPI and below Constitutional Constitutional: Denies fatigue, Denies fever(s), Denies headache(s), Denies malaise and Denies weakness Eyes Eyes: Denies blurry vision, Denies change in vision, Denies diplopia and Denies loss of vision ENT Ears, Nose, Mouth, and Throat: Denies abnormal hearing, Denies vertigo, Denies dizziness, Denies headache(s) and Denies neck pain Cardiovascular Cardiovascular: Denies chest pain and Denies dyspnea Respiratory Respiratory: Denies cough, Denies hemoptysis, Denies pain on inspiration, Denies pain with cough and Denies dyspnea Gastrointestinal Gastrointestinal: Denies abdominal pain, Denies nausea and Denies vomiting Genitourinary Genitourinary: Denies hematuria Musculoskeletal Musculoskeletal: Reports back pain, Denies arthralgias, Denies joint swelling, Denies neck pain, Denies numbness and Denies tingling Neurologic Neurologic: Denies abnormal hearing, Denies abnormal movements, Denies abnormal speech, Denies vertigo, Denies dizziness, Denies headache(s), Denies loss of vision, Denies numbness, Denies tingling and Denies weakness Endocrine Endocrine: Denies fatigue [facility] Medical History Anxiety with depression (Acute) Arteriovenous fistula (Chronic) lt arm CHF (congestive heart failure) (Chronic) Colorectal polyps (Acute ~01/22/19) hyperplastic polyps Coronary arteriosclerosis (Chronic) Diabetic retinopathy (Chronic) ESRD (end stage renal disease) (Chronic) HTN (hypertension) (Chronic) Trigger finger, left middle finger (Acute) Trigger finger, right ring finger (Acute) Injection: 04/30/2019 Type 2 diabetes mellitus (Chronic) Surgical History Arthroplasty of knee (Inactive ~1973) per pt knee arthroscopy not a TKA! Open Carpal Tunnel release (Inactive ~2001) b/l S/P CABG (coronary artery bypass graft) (Chronic) S/P colonoscopy (Inactive ~01/22/19) 2018- not clean enough. Had 8 benign polyps per patient Social History Smoking/Tobacco Use Status: Former Tobacco Use Alcohol Intake: former Drug use: Current Sobriety Substance use type: does not use and marijuana Details: marijuana in the 70's Current gender identity: male Do you feel safe at home: Yes Do you feel safe in your relationship?: Yes Exam Narrative Exam Narrative: CONST: Healthy appearing patient, in no acute distress. Well hydrated. Alert and oriented x3 HENMT: Head nomocephalic, normal to inspection. Abrasions to the posterior scalp. Hearing grossly normal. External ear canal no erythema or swelling. TM normal bilaterally. Nose normal to inspection. No rhinnorhea. Normal facial exam. Oral mucosa normal. Tounge normal. Dentition normal. Normal posterior oropharynx. Uvula midline. EYES: General normal appearance. Alignment normal. Eyelids normal. Conjunctiva normal. Sclera normal. Pupils equal, round, minimally reactive. No nystagmus. NECK: Normal visual inspection. No lymphadenopathy. Trachea midline. No Midline tenderness. Cervical collar in place CHEST: Normal insepection of the chest. No palpable chest tenderness through bilateral chest. No flare chest. RESP: Normal respiratory effort. Speaking full sentences. No cough. No wheezing. No retractions. Clear to auscaltation. Breath sound equal and present bilaterally. CARDIO: No JVD. Normal PMI. Regular Rate. Regular Rhythm. Normal peripheral pulses. GI: Normal inspection of abdomen. No distension. Soft. Nontender. Bowel sounds present in all 4 quadrants. No rebound. No gaurding. Back: Patient does have a right upper posterior area of abrasion, no deformity. No midline tenderness noted through the cervical, thoracic or lumbar spine. Mild left lower paraspinal tenderness. MUSCULOSKELETAL: Right clavicle tenderness with palpation, right proximal hu meral tenderness with palpation, ecchymosis present over the right upper arm. No distal humeral pain with palpation, no elbow pain with palpation, forearm abrasion present with small hematoma present but no bony tenderness of the right forearm. No wrist pain with palpation. Student Nurse strength intact. Pulses intact distally of the right arm. Left arm exam benign. Straight leg raise intact bilaterally. No hip pain with palpation, no knee pain with palpation. No obvious deformities the lower extremities. Abrasions noted to bilateral anterior knees. No ankle or foot pain with palpation. Pulses intact and equal in the lower extremities. Sensation intact in lower extremities. Strength intact in lower extremities. SKIN: Normal. Dry. No rashes. NEURO: Alert and awake. Speech clear. Alert and oriented x 3. Speech is clear. Cranial nerves intact as tested III - XI. No Nystagmus. Gait normal. Strength intact in all extremities. Sensation intact in all extremities. PSYCH: Normal affect. Cooperative. Course Vital Signs Vital signs: Vital Signs Temperature 36.6 C 07/29/19 19:01 Pulse 106 H 07/29/19 19:01 Respiratory Rate 18 07/29/19 19:01 Blood Pressure 161/95 H 07/29/19 19:01 Pulse Oximetry 92 L 07/29/19 19: Temperature 36.6 C 07/29/19 19:01 Pulse 105 H 07/29/19 21:30 Pulse 106 H 07/29/19 21:31 Respiratory Rate 15 07/29/19 21:31 Respiratory Effort 07/29/19 19:10 Respiratory Depth Normal 07/29/19 19:10 Respiratory Pattern Normal 07/29/19 19:10 Blood Pressure 136/65 07/29/19 21:30 Blood Pressure Mean 82 07/29/19 21:30 Blood Pressure Position Supine 07/29/19 19:01 Pulse Oximetry 89 L 07/29/19 21:31 Oxygen Delivery Method Room Air 07/29/19 21:18 Oxygen Flow Rate 0 07/29/19 21:18 Pain Level 8 07/29/19 21:28 Comment 07/29/19 19:01 Lab/Test Results Lab/Test Results: Laboratory Tests Range/Units 07/29/19 07/29/19 07/29/19 19:15 19:15 19:15 WBC (4.4-10.8) k/cumm 6.34 RBC (4.50-6.00) m/cumm 3.64 L Hgb (13.5-17.5) g/dL 11.8 L Hct (40.0-50.0) % 34.4 L MCV (80-95) fL 94.5 MCH (27.0-33.0) pg 32.4 MCHC (32.0-36.0) g/dL 34.3 RDW (11.8-14.1) % 14.1 Plt Count (130-400) x1000/uL 157 MPV (8.0-11.0) fL 9.7 Immature Gran % % 1.3 Neutrophils % 71.9 Lymphocytes % 16.1 Monocytes % 6.5 Eosinophils % 3.9 Basophils % 0.3 Absolute Neutrophils (1.2-6.7) k/cumm 4.56 Absolute Lymphocytes (1.2-3.4) k/cumm 1.02 L Absolute Monocytes (0.11-0.7) k/cumm 0.41 Absolute Eosinophils (0.0-0.7) k/cumm 0.25 Absolute Basophils (0.0-0.2) k/cumm 0.02 PT (9.3-11.0) sec 9.9 INR (0.9-1.1) 1.0 APTT (21.0-31.4) sec 26.0 Sodium (136-145) mmol/L 136 Potassium (3.5-5.1) mmol/L 3.5 Chloride (98-107) mmol/L 97 L Carbon Dioxide (21.0-32.0) mmol/L 33.7 H Anion Gap (3-11) mmol/L 5.3 BUN (7-18) mg/dL 33 H Creatinine (0.70-1.30) mg/dL 4.66 H* Estimated GFR/1.73 m2 (mL/min/1.73m2) 12.91 Glucose (74-106) mg/dL 154 H Calcium (8.5-10.1) mg/dL 8.6 Total Bilirubin (0.2-1.0) mg/dL 0.3 AST (15-37) U/L 26 ALT (16-63) U/L 35 Alkaline Phosphatase (46-116) U/L 97 Total Protein (6.4-8.2) g/dL 7.8 Albumin (3.4-5.0) g/dL 3.6 Patient ABO/Rh Antibody Screen Range/Units 07/29/19 19:15 WBC (4.4-10.8) k/cumm RBC (4.50-6.00) m/cumm Hgb (13.5-17.5) g/dL Hct (40.0-50.0) % MCV (80-95) fL MCH (27.0-33.0) pg MCHC (32.0-36.0) g/dL RDW (11.8-14.1) % Plt Count (130-400) x1000/uL MPV (8.0-11.0) fL Immature Gran % % Neutrophils % Lymphocytes % Monocytes % Eosinophils % Basophils % Absolute Neutrophils (1.2-6.7) k/cumm Absolute Lymphocytes (1.2-3.4) k/cumm Absolute Monocytes (0.11-0.7) k/cumm Absolute Eosinophils (0.0-0.7) k/cumm Absolute Basophils (0.0-0.2) k/cumm PT (9.3-11.0) sec INR (0.9-1.1) APTT (21.0-31.4) sec Sodium (136-145) mmol/L Potassium (3.5-5.1) mmol/L Chloride (98-107) mmol/L Carbon Dioxide (21.0-32.0) mmol/L Anion Gap (3-11) mmol/L BUN (7-18) mg/dL Creatinine (0.70-1.30) mg/dL Estimated GFR/1.73 m2 (mL/min/1.73m2) Glucose (74-106) mg/dL Calcium (8.5-10.1) mg/dL Total Bilirubin (0.2-1.0) mg/dL AST (15-37) U/L ALT (16-63) U/L Alkaline Phosphatase (46-116) U/L Total Protein (6.4-8.2) g/dL Albumin (3.4-5.0) g/dL Patient ABO/Rh A Positive Antibody Screen Negative
--- NOTE | 2019-07-29 22:37 | NUR.NOTE ---
Report to Elena at [facility] to [facility] pt.
--- NOTE | 2019-07-30 01:19 | DI.VRAD_ITS ---
PROCEDURE INFORMATION: Exam: CT Thoracic Spine Without Contrast Exam date and time: 07/30/2019 12:36 AM Age: 59 years old Clinical indication: Other: Trauma spine reconstructions; Pain in thoracic spine; Without myelpathy or radiculopathy; Patient HX: Trauma. Fall TECHNIQUE: Imaging protocol: Computed tomography images of the thoracic spine without contrast. Radiation optimization: All CT scans at this facility use at least one of these dose optimization techniques: automated exposure control; mA and/or kV adjustment per patient size (includes targeted exams where dose is matched to clinical indication); or iterative reconstruction. COMPARISON: No relevant prior studies available. FINDINGS: Vertebrae: Bridging osteophytosis throughout mid thoracic spine. Mild chronic degenerative loss of vertebral body height at T9 level. Vertebral body heights are within normal limits. No evidence of compression fracture. No evidence of acute fracture. Discs/Spinal canal/Neural foramina: No spinal canal stenosis. Other bones/joints: Nondisplaced fracture of right posterior 2nd and 3rd ribs. Soft tissues: Unremarkable. IMPRESSION: 1. Vertebral body heights are within normal limits. No evidence of compression fracture. No evidence of acute fracture. 2. Nondisplaced fracture of right posterior 2nd and 3rd ribs. PROCEDURE INFORMATION: Exam: CT Lumbar Spine Without Contrast Exam date and time: 07/30/2019 12:36 AM Age: 59 years old Clinical indication: Other: Trauma spine reconstructions; Pain in thoracic spine; Without myelpathy or radiculopathy; Patient HX: Trauma. Fall TECHNIQUE: Imaging protocol: Computed tomography images of the lumbar spine without contrast. Radiation optimization: All CT scans at this facility use at least one of these dose optimization techniques: automated exposure control; mA and/or kV adjustment per patient size (includes targeted exams where dose is matched to clinical indication); or iterative reconstruction. COMPARISON: No relevant prior studies available. FINDINGS: Vertebrae: Acute fracture of left L1 and L2 transverse process. Air density likely degenerative air is seen at L2-L3 disc space. Mild adjacent erosion is seen in inferior L2 endplate. Vertebral body heights are within normal limits. No evidence of compression fracture. Discs/Spinal canal/Neural foramina: 5 mm chronic degenerative osteophyte at L4-L5 level. No disc herniations. No spinal canal stenosis. No neural foraminal narrowing. Soft tissues: Unremarkable. IMPRESSION: 1. Acute fracture of left L1 and L2 transverse process. 2. Air density likely degenerative air is seen at L2-L3 disc space. Mild adjacent erosion is seen in inferior L2 endplate. These findings are likely chronic and degenerative. Please note that osteomyelitis cannot be excluded through this imaging study. 3. Vertebral body heights are within normal limits. No evidence of compression fracture. Dictated and Authenticated by: Carmen Sung MD. Ordering:.[facility] ALPES[facility]AN [facility] MEDICAL CENTERKrissy FERRO
== END 2019-07-29 22:45 | disposition short-term general hospital (02) ==
PROVIDERS: Emergency Provider Physician Assistant; PCP Nurse Practitioner Family
DX: S06.9X1A Unspecified intracranial injury with loss of consciousness of 30 minutes or less, initial encounter (principal); S06.351A Traumatic hemorrhage of left cerebrum with loss of consciousness of 30 minutes or less, initial encounter; S42.021A Displaced fracture of shaft of right clavicle, initial encounter for closed fracture; S32.018A Other fracture of first lumbar vertebra, initial encounter for closed fracture; S42.291A Other displaced fracture of upper end of right humerus, initial encounter for closed fracture; S32.028A Other fracture of second lumbar vertebra, initial encounter for closed fracture; S42.191A Fracture of other part of scapula, right shoulder, initial encounter for closed fracture; S80.211A Abrasion, right knee, initial encounter; S22.41XA Multiple fractures of ribs, right side, initial encounter for closed fracture; S80.212A Abrasion, left knee, initial encounter; W10.8XXA Fall (on) (from) other stairs and steps, initial encounter; I12.0 Hypertensive chronic kidney disease with stage 5 chronic kidney disease or end stage renal disease; N18.6 End stage renal disease; E11.22 Type 2 diabetes mellitus with diabetic chronic kidney disease; Z79.4 Long term (current) use of insulin; Z99.2 Dependence on renal dialysis
CPT/HCPCS: 36415; 71250; 80053; 86850; 86900; 86901; 93005; 96365; 96375; 99285; 70450; 72125; 73030; 73060; 73502; 74176; 85025; 85610; 85730; 93010; J0131; J3010; L0172; L3650

== ENCOUNTER 2020-04-04 10:46 | Emergency (ER) | payer MEDICARE, MEDICAID, SELFPAY ==
[2020-04-04] VITALS (19 sets, daily range): BP systolic 101–169; BP diastolic 78–99; PULSE 90–105; RESP 10–21; TEMP 36.6–36.7; O2SAT 86–96
--- NOTE | 2020-04-04 11:00 | DI.RAD_ITS ---
EXAM: XR CHEST 2V PA LATERAL CLINICAL HISTORY: cva TECHNIQUE: 2D digital imaging was performed. COMPARISON: CR,XR XR CHEST 2V PA LATERAL from 04/29/2019 FINDINGS: The heart is enlarged. The patient is status post CABG. The lungs are suboptimally inflated. No in filtrate, effusion or pulmonary edema is seen. IMPRESSION: No acute abnormality.
--- NOTE | 2020-04-04 11:00 | DI.CT_ITS ---
EXAM: CT HEAD - STROKE PROTOCOL CLINICAL HISTORY: left facial droop, slurred speech 3 days. TECHNIQUE: Imaging Protocol: Axial computed tomography images with coronal and sagittal reformatted images were created and reviewed COMPARISON: CT CT HEAD CERVICAL SPINE WO from 07/29/2019 FINDINGS: Ventricles and Extra axial spaces: Mild compensatory dilatation of the right lateral ventricle. Hemorrhage: None. Cerebral parenchyma: Old infarct in the right basal ganglia extending into the right frontal lobe. N o evidence of acute infarct. Patchiness of the white matter consistent with sequela of microvascular ischemia. Midline shift: None. Brainstem/Cerebellum: Normal. Calvarium: Normal. Visualized Paranasal sinuses/Mastoids: Clear. High density is again noted in the right globe. IMPRESSION: Old right frontal and right basal ganglia infarct. No acute intracranial process. RADIATION DOSE DELIVERED: 842.02mGy.cm Total DLP DATA REPOSITORY: All CT scans at this facility are submitted to the National Radiology Data Registry (NRDR) Dose Index Registry (DIR) with the [employer] (ACR). RADIATION OPTIMIZATION: All CT scans at this facility use at least one of these dose optimization te chniques: automated exposure control; mA and/or kV adjustment per patient size (includes targeted exa ms where dose is matched to clinical indication); or iterative reconstruction.
--- NOTE | 2020-04-04 11:00 | RT.EKG_ITS ---
APPROVED REPORT Exam: Resting ECG Patient Location: E HR:99 bpm ECG Measurements Heart Rate 99 AXIS WA 216 P 55 QRSd 105 QRS 66 QT 366 T -8 QTc 471 Conclusion Sinus rhythm...normal P axis, V-rate 60- 99 Ventricular bigeminy...bigeminy string>4 w/ V complexes Prolonged WA interval...WA >215, V-rate 91-120 Inferior infarct, old...Q >35mS, II III aVF
[2020-04-04 11:29] LABS: Abs Immature Grans 0.05 10^3/uL (0.0-0.06); Absolute Basophil Count 0.02 10^3/uL (0.0-0.2); Absolute Lymphocyte Count 1.27 10^3/uL (1.2-3.4); Absolute Monocyte Count 0.45 10^3/uL (0.1-0.8); Absolute Neutrophil Count 4.77 10^3/uL (1.2-6.7); Basophils % 0.3; Eosinophils % 1.5; HCT 35.9 % (40.0-50.0); HGB 11.9 g/dL (13.5-17.5); Immature Grans % 0.8; Lymphocytes % 19.1; MCH 31.4 pg (27.0-33.0); MCHC 33.1 % (32.0-36.0); MCV 94.7 fL (80-95); MPV 10.7 fL (8.0-11.0); Monocytes % 6.8; Neutrophils % 71.5; Nucleated RBC 0 %; Platelet Count 142 10^3/uL (130-400); RBC 3.79 10^6/uL (4.36-5.78); RDW 13.1 % (11.8-14.1); RDW-SD 45.7 fL; WBC 6.66 10^3/uL (4.4-10.8)
--- NOTE | 2020-04-04 11:30 | DI.MRI_ITS ---
CLINICAL HISTORY: new slurred speech and left facial weakness. TECHNIQUE: 3D [id number]-fi-[id number] examination was performed.. COMPARISON: None. FINDINGS: Carotid Arteries: Petrous: Normal. Cavernous: Normal. Cerebral: Normal. Middle Cerebral Arteries: Right: No aneurysm or significant stenosis. Left: No aneurysm or significant stenosis. Anterior Cerebral Arteries: Right: No aneurysm or significant stenosis. Left: No aneurysm or significant stenosis. Vertebral Arteries: Right: No aneurysm or significant stenosis. Left: Not included on field of view Basilar Artery: No aneurysm or significant stenosis. Small Vessels: No evidence of beading. IMPRESSION: Normal MRA examination of the [place] of [place]. DATA REPOSITORY:
--- NOTE | 2020-04-04 11:30 | DI.MRI_ITS ---
EXAM: MR BRAIN WO CLINICAL HISTORY: left facial weakness and slurred speech 3 days TECHNIQUE: Multiplanar multisequence MRI of the brain was performed. COMPARISON: CT CT HEAD - STROKE PROTOCOL from 04/04/2020 FINDINGS: VENTRICLES AND EXTRA AXIAL SPACES: Normal in size and morphology for the patient's age. MIDLINE SHIFT: None. CEREBRAL PARENCHYMA: Old area infarction is again noted in the right basal ganglia and right frontal lobe. There are patchy areas of high signal in the white matter consistent with microvascular diseas e. No focus of restricted diffusion to suggest acute infarct. No space-occupying lesion identified. HEMORRHAGE: No acute hemorrhage. Two residual foci hemosiderin are visible on susceptibility weighte d images in the left frontal and medial right parietal regions. These are consistent with the small old areas of parenchymal hemorrhage seen on the July 19 exam. BRAINSTEM/CEREBELLUM: Normal. CALVARIUM: Normal. VISUALIZED PARANASAL SINUSES/MASTOIDS:Mucous retention cyst at the floor of the right maxillary sinus , otherwise clear. [place] OF [place]: Normal flow void. PITUITARY GLAND: Unremarkable. Orbits: Prostatic right globe. IMPRESSION: Old right frontal and right basal ganglia infarct. No evidence of acute infarct or acute hemorrhage. DATA REPOSITORY:
--- NOTE | 2020-04-04 11:30 | DI.MRI_ITS ---
EXAM: MR ANGIO NECK WO CLINICAL HISTORY: new slurred speech and left facial weakness. TECHNIQUE: 2D and 3D [id number] studies were performed. COMPARISON: No exams were available for comparison FINDINGS: Common Carotid: Right: No dissection, occlusion or significant stenosis. Left: No dissection, occlusion or significant stenosis. External Carotid: Right: No evidence of occlusion or significant stenosis. Left: No evidence of occlusion or significant stenosis. Internal Carotid: Right: No dissection, occlusion. Plaque proximally causing mild stenosis. Left: No dissection, occlusion or significant stenosis. There is plaque proximally causing mild sten osis. Vertebral Artery: Right: Dominant. Left: No dissection, occlusion or significant stenosis. The visualized paraspinal soft tissues are unremarkable. IMPRESSION: No evidence of dissection, occlusion or significant stenosis. Plaque is seen in the proximal interna l carotid arteries bilaterally however there is no significant stenosis. DATA REPOSITORY:
[2020-04-04 11:36] LABS: ALT 29 U/L (16-63); AST 17 U/L (15-37); Albumin 4.1 g/dL (3.4-5.0); Alkaline Phosphatase 107 U/L (46-116); Anion Gap 5.4 mmol/L (3-11); BUN 36 mg/dL (7-18); Bilirubin, Total 0.4 mg/dL (0.2-1.0); CO2 33.6 mmol/L (21.0-32.0); Calcium 8.7 mg/dL (8.5-10.1); Chloride 93 mmol/L (98-107); Estimated GFR 13.53 (mL/min/1.73m2); Glucose 404 mg/dL (74-106); Potassium 3.7 mmol/L (3.5-5.1); Sodium 132 mmol/L (136-145); Total Protein 8.5 g/dL (6.4-8.2)
[2020-04-04 11:37] LABS: CREATININE 4.46 mg/dL (0.70-1.30); Troponin I < 0.05 ng/mL (<0.06)
--- NOTE | 2020-04-04 11:45 | ED.GENADUL_ITS ---
Discharge Plan Disposition Patient Disposition: HOME Condition: Serious Discharge Details Clinical Impression: Weakness on left side of face, Acute hyperglycemia Primary Care Provider: Jarad Keller ED Provider: Miguel Keith Home Meds and New Rx's Prescriptions: Continued losartan 50 mg tablet 50 mg PO DAILY RF: 0 tamsulosin 0.4 mg capsule 0.4 mg PO DAILY RF: 0 ProRenal QD 400-500 mcg-unit capsule 1 cap PO DAILY RF: 0 aspirin 325 mg tablet 325 mg PO DAILY RF: 0 sevelamer carbonate [Renvela] 800 mg tablet 800 mg PO TID RF: 0 amlodipine 5 mg tablet 5 mg PO DAILY RF: 0 (DME) lancets 1 EACH misc 1 ea Miscellaneous QID Qty: 400 RF: 4 (DME) BD Regular Bevel [place] 1 EACH needle 1 ea Intrauterine AC Qty: 100 RF: 4 insulin aspart U-100 [Novolog Flexpen U-100 Insulin] 100 UNIT/1 ML insulin pen 12 unit SQ AC Qty: 3 RF: 12 pravastatin [Pravachol] 40 MG tablet 1 tab PO DAILY Qty: 90 RF: 4 (DME) pen needle, diabetic 1 EACH needle 1 ea Sub-Q TID Qty: 100 RF: 12 (DME) Blood Glucose Test 1 EACH strip 1 ea Miscellaneous QID Qty: 400 RF: 6 bumetanide 1 mg tablet 2 mg PO BID RF: 0 gabapentin 100 mg capsule 200 mg PO QHS RF: 0 sertraline 50 mg tablet 50 mg PO DAILY RF: 0 No Action insulin lispro 100 unit/mL insulin pen 26 unit subcut DAILY RF: 0 gabapentin 300 mg capsule 300 mg PO BID RF: 0 Discharge Instructions Instructions: Doan Palsy (ED), Diabetic Hyperglycemia (ED) Additional Instructions: Please take your insulin as prescribed and monitor your blood sugar closely. Please follow-up with [facility] neurology [facility], Dr. Devine, on April at 1:45 PM. Please contact your primary care physician to arrange follow-up. Return to the ER for any worsening or new concerning symptoms. Referrals: Jarad Keller, ADDICTIONS COUNSELOR ASSISTANT [Primary Care Provider] - Discharge Data Discharge Date/Time-TO BE ENTERED AT DEPARTURE: 04/04/20 17:35 Medical Decision Making 60-year-old male with multiple medical problems including history of end-stage renal disease on hemodialysis, remote CVA with residual intermittent speech difficulty, here today with left facial weakness and slightly worse speech difficulty over the past 3 days. Consider CVA versus Doan's palsy. CT of the head was reviewed and interpreted by radiology: Old right frontal and right basal ganglia infarct. No acute intracranial process. MRI of the brain reviewed and interpreted by radiology:Old right frontal and right basal ganglia infarct. No acute intracranial process. MRA of the brain interpreted by radiology:Normal MRA examination of the [place] of [place]. MRA of the neck interpreted by radiology:No evidence of dissection, occlusion or significant stenosis. Plaque is seen in the proximal internal carotid arteries bilaterally however there is no significant stenosis I called and spoke with Dr. Devine and discussed ED presentation course including diagnostics. She feels unlikely acute stroke given normal MRI and likely symptomatic from prior stroke. She will see the patient in follow-up next week. Labs reviewed and hypoglycemia with glucosuria noted. No anion gap acidosis. Patient was given insulin and reassessed and blood sugar improved. Patient reassessed multiple times remained stable. Plan for discharge with outpatient follow-up. An appointment was arranged for the patient with neurology for next week. Patient understands importance of timely follow-up and will be monitoring his sugar closely. HPI General Mode of arrival: ambulatory . Date/Time Provider Initiated Documentation: 04/04/20 10:47 . Limitations to Documentation: no limitations . Information obtained by: patient . HPI Narrative: 60-year-old male with multiple medical problems including history of end-stage renal disease on hemodialysis, remote CVA with residual intermittent speech difficulty, presents with chief complaint left facial weakness. Patient notes his symptoms started about 3 days ago. He states she feels numb. patient also notes associated slightly worse speech difficulty over the past 3 days. No associated new upper extremity or lower extremity weakness. No headache. No difficulty swallowing. Related Data Home Medications Medication Instructions Recorded Confirmed lancets #400 ea 08/18/12 04/17/20 BD Regular Bevel [place] #100 ndl 08/31/12 04/17/20 insulin aspart U-100 [Novolog 12 unit SQ AC #3 pen 09/18/12 04/17/20 Flexpen U-100 Insulin] pravastatin [Pravachol] 1 tab PO DAILY #90 tab 08/07/13 04/17/20 pen needle, diabetic #100 ndl 11/15/13 04/17/20 Blood Glucose Test #400 strip 12/05/13 04/17/20 losartan 50 mg tablet 50 mg PO DAILY 09/15/18 04/17/20 Brianda carverYi-lun-VN-[id number]-oet-orba 1 cap PO DAILY cap 09/15/18 04/17/20 oil 400 mcg-500 unit capsule tamsulosin 0.4 mg capsule 0.4 mg PO DAILY 09/15/18 04/17/20 amlodipine 5 mg tablet 5 mg PO DAILY 04/27/19 04/17/20 aspirin 325 mg tablet 325 mg PO DAILY 04/27/19 04/17/20 sevelamer carbonate 800 mg tablet 800 mg PO TID 04/27/19 04/17/20 bumetanide 1 mg tablet 2 mg PO BID tab 03/11/20 04/17/20 gabapentin 100 mg capsule 200 mg PO QHS cap 03/11/20 04/17/20 sertraline 50 mg tablet 50 mg PO DAILY 03/11/20 04/17/20 gabapentin 300 mg capsule 300 mg PO BID 04/17/20 04/17/20 insulin lispro 100 unit/mL 26 unit SUBCUT DAILY ml 04/17/20 04/17/20 subcutaneous pen Allergies Allergy/AdvReac Type Severity Reaction Status Date / Time ciprofloxacin Allergy Intermediate rash from Verified 04/17/20 13:52 IV Penicillins Allergy Other (See Unverified 04/17/20 13:52 Comment) General Stated Complaint: FacialProb ABBIE: 3 Review of Systems All systems reviewed & are unremarkable except as noted in HPI and below Cardiovascular Cardiovascular: Denies chest pain and Denies dyspnea Respiratory Respiratory: Denies dyspnea Neurologic Neurologic: Reports as per HPI [facility] Medical History (Updated 04/19/20 @ 21:24 by Lani Devine MD) Anxiety with depression Arteriovenous fistula lt arm Blind right eye CHF (congestive heart failure) Colorectal polyps (~01/22/19) hyperplastic polyps Coronary arteriosclerosis Depression Diabetic retinopathy ESRD (end stage renal disease) AV fistula for hemodialysis Heart disease HTN (hypertension) Hyperlipidemia Trigger finger, left middle finger Trigger finger, right ring finger Injection: 04/30/2019 Type 2 diabetes mellitus Surgical History (Updated 04/19/20 @ 21:24 by Lani Devine MD) Arthroplasty of knee (~1973) per pt knee arthroscopy not a TKA! Open Carpal Tunnel release (~2001) b/l S/P CABG (coronary artery bypass graft) S/P colonoscopy (~01/22/19) 2018- not clean enough. Had 8 benign polyps per patient S/P eye surgery Family History Father Heart disease Diabetes Mother Diabetes Renal disease Brother , from cardiac disease in his 50's Heart disease Social History (Updated 04/19/20 @ 21:25 by Lani Devine MD) Smoking/Tobacco Use Status: Former Tobacco Use Smoking risk assessment performed?: Yes Alcohol Intake: former Drug use: Current Sobriety Substance use type: marijuana Details: marijuana in the 70's Number of Children: 1 current occupation: Disabled Current gender identity: male Do you feel safe at home: Yes Do you feel safe in your relationship?: Yes Exam Const General: cooperative and no acute distress HENMT Head: normocephalic and atraumatic Mouth: moist mucous membranes Eyes Conjunctivae: normal conjunctivae Sclera: normal sclerae EOM: EOM intact bilaterally Neck Neck: supple Resp Auscultation: clear to auscultation bilaterally, no rales, no rhonchi and no wheezes Cardio Jugular venous pressure: no JVD Rate: regular rate and not tachycardic Rhythm: regular rhythm GI Palpation: soft, not firm, no guarding, no masses, not rigid and nontender Skin General skin exam: no rashes or lesions noted Neuro General: patient alert, patient awake, patient oriented x3 and tone normal Cognition: normal cognition Speech: other (Some slurring of speech) Motor: strength 5/5 throughout (Upper and lower extremities) and other (Left facial droop) Sensory Exam: no sensory deficits noted Extrem General: no edema Psych Appearance: grossly normal Mental Status: mental status grossly normal Course Vital Signs Vital signs: Vital Signs Temperature 36.6 C 04/04/20 10:50 Pulse 105 H 04/04/20 10:50 Respiratory Rate 18 04/04/20 10:50 Blood Pressure 161/81 H 04/04/20 10:50 Pulse Oximetry 95 04/04/20 10:50 Temperature 36.6 C 04/04/20 10:50 Temperature Source Temporal Artery Scan 04/04/20 10:50 Pulse 105 H 04/04/20 10:50 Respiratory Rate 18 04/04/20 10:50 Respiratory Effort Non-Labored 04/04/20 10:58 Blood Pressure 161/81 H 04/04/20 10:50 Blood Pressure Position Sitting 04/04/20 10:50 Pulse Oximetry 95 04/04/20 10:50 Oxygen Delivery Method Room Air 04/04/20 10:50 Oxygen Flow Rate 0 04/04/20 10:50 Lab/Test Results Lab/Test Results: Laboratory Tests Range/Units 04/04/20 04/04/20 11:04 11:04 WBC (4.4-10.8) 10^3/uL 6.66 RBC (4.36-5.78) 10^6/uL 3.79 L Hgb (13.5-17.5) g/dL 11.9 L Hct (40.0-50.0) % 35.9 L MCV (80-95) fL 94.7 MCH (27.0-33.0) pg 31.4 MCHC (32.0-36.0) % 33.1 RDW (11.8-14.1) % 13.1 Plt Count (130-400) 10^3/uL 142 MPV (8.0-11.0) fL 10.7 Immature Gran % 0.8 Neutrophils % 71.5 Lymphocytes % 19.1 Monocytes % 6.8 Eosinophils % 1.5 Basophils % 0.3 Nucleated RBC % % 0 Absolute Neutrophils (1.2-6.7) 10^3/uL 4.77 Absolute Lymphocytes (1.2-3.4) 10^3/uL 1.27 Absolute Monocytes (0.1-0.8) 10^3/uL 0.45 Absolute Eosinophils (0.0-0.7) 10^3/uL 0.10 Absolute Basophils (0.0-0.2) 10^3/uL 0.02 Sodium (136-145) mmol/L 132 L Potassium (3.5-5.1) mmol/L 3.7 Chloride (98-107) mmol/L 93 L Carbon Dioxide (21.0-32.0) mmol/L 33.6 H Anion Gap (3-11) mmol/L 5.4 BUN (7-18) mg/dL 36 H Creatinine (0.70-1.30) mg/dL 4.46 H* Estimated GFR/1.73 m2 (mL/min/1.73m2) 13.53 Glucose (74-106) mg/dL 404 H Calcium (8.5-10.1) mg/dL 8.7 Total Bilirubin (0.2-1.0) mg/dL 0.4 AST (15-37) U/L 17 ALT (16-63) U/L 29 Alkaline Phosphatase (46-116) U/L 107 Troponin I (<0.06) ng/mL < 0.05 Total Protein (6.4-8.2) g/dL 8.5 H Albumin (3.4-5.0) g/dL 4.1
[2020-04-04] MEDS: LORazepam 2 MG/ML VIAL 0.5 MG IVP (12:00)
[2020-04-04 14:04] LABS: Bilirubin Negative (Negative); Blood Trace-lysed (Negative); Clarity Clear (Clear); Glucose 500 mg/dL (Negative); Ketones Negative (Negative); Leukocyte Esterase Negative (Negative); Nitrite Negative (Negative); Specific Gravity 1.015 (1.005-1.025); Urobilinogen 0.2 EU/dL (Up TO 0.2); pH 5.5 (5-8)
[2020-04-04 14:15] LABS: Epithelial Cells Few HPF (Negative); Other Cells Few Transitional (Negative); RBC 0-2 HPF (0-2)
[2020-04-04 14:16] LABS: Bacteria Few HPF (Negative); Crystals Negative HPF (Negative); Mucus Trace (Negative)
[2020-04-04 14:17] LABS: C & S Indicated? No; Casts 10-20 Hyaline LPF (Negative)
[2020-04-04] MEDS: Insulin REGULAR-Human 100 UNITS/ML UNIT SC (15:13)
[2020-04-04] MEDS: Insulin Aspart 100 UNITS/ML UNIT 8 UNITS SC (16:08)
[2020-04-04] MEDS: predniSONE 20 MG TAB 60 MG PO (17:06)
--- NOTE | 2020-04-04 17:42 | NUR.NOTE ---
Nursing Note: pt left without taking his glasses or rolling walker- left outside the vehicle that picked him up. Brought into access. Placed call to cell- answered by who states there is no contact information for his ride and he will most likely potato picker belongings tomorrow AM before dialysis. Message left for pt to call to verify belongings.
--- NOTE | 2020-04-04 18:54 | NUR.NOTE ---
Nursing Note: Pt returned for glasses and rolling walker, returned to pt by access at approx 1820.
== END 2020-04-04 17:35 | disposition home or self-care (01) ==
PROVIDERS: Emergency Provider Student in an Organized Health Care Education/Training Program; PCP Nurse Practitioner Family
DX: G51.0 Bell's palsy (principal); E11.65 Type 2 diabetes mellitus with hyperglycemia; Z79.4 Long term (current) use of insulin; E11.22 Type 2 diabetes mellitus with diabetic chronic kidney disease; I12.0 Hypertensive chronic kidney disease with stage 5 chronic kidney disease or end stage renal disease; N18.6 End stage renal disease; Z99.2 Dependence on renal dialysis
CPT/HCPCS: 36415; 36416; 70544; 70547; 80053; 82962; 93005; 96372; 96374; 99285; 70450; 70551; 71046; 81003; 81015; 84484; 85025; 93010; J1815; J2060; J7512

== ENCOUNTER → 2020-04-17 13:50 | Outpatient (BNVA) | payer MEDICARE, MEDICAID, SELFPAY | PROVIDERS: PCP Nurse Practitioner Family; Referring Provider Nurse Practitioner Family; Visit Provider Psychiatry & Neurology Neurology | DX: R29.810 Facial weakness (principal); E11.65 Type 2 diabetes mellitus with hyperglycemia; E11.319 Type 2 diabetes mellitus with unspecified diabetic retinopathy without macular edema; E11.22 Type 2 diabetes mellitus with diabetic chronic kidney disease; N18.6 End stage renal disease; Z99.2 Dependence on renal dialysis; I10 Essential (primary) hypertension | CPT/HCPCS: 99204; 99215 ==

== ENCOUNTER 2020-11-11 13:12 | Outpatient (CLI) | payer MEDICARE, MEDICAID, SELFPAY ==
--- NOTE | 2020-11-11 13:00 | DI.RAD_ITS ---
Exam(s) XR CLAVICLE RT XR SHOULDER RT COMPLETE 2+V EXAM: XR CLAVICLE RT CLINICAL HISTORY: right clavicle pain TECHNIQUE: 2D digital imaging was performed. COMPARISON: DX XR SHOULDER RIGHT (GENERIC) from 07/30/2019 DX XR SHOULDER RIGHT (GENERIC) from 07/30/2019 CR XR SHOULDER RT COMPLETE 2+V from 11/11/2020 FINDINGS: BONES: There is deformity of the greater tuberosity related to old fracture. There is also an old di stal clavicle fracture. No acute fracture is present. JOINTS: There is spurring at the AC joint and inferior glenoid. No dislocation present. SOFT TISSUE: Normal IMPRESSION: Old clavicle and greater tuberosity fractures. Degenerative changes AC joint and glenoid. DATA REPOSITORY: RADIATION DOSE DELIVERED:
== END 2020-11-11 13:13 | disposition home or self-care (01) ==
PROVIDERS: PCP Nurse Practitioner Family; Referring Provider Nurse Practitioner Family; Visit Provider Student in an Organized Health Care Education/Training Program
DX: M89.8X1 Other specified disorders of bone, shoulder (principal); M25.511 Pain in right shoulder; E11.69 Type 2 diabetes mellitus with other specified complication; W10.9XXS Fall (on) (from) unspecified stairs and steps, sequela
CPT/HCPCS: 99203; 99213; 73000; 73030

== ENCOUNTER 2020-11-12 01:23 | Outpatient (CLI) | payer MEDICARE, MEDICAID, SELFPAY ==
--- NOTE | 2020-11-12 | DI.DEXA_ITS ---
Exam(s) XR DEXA BONE DENSITY W/WO FRANCISCO JAVIER EXAM: XR DEXA BONE DENSITY W/WO FRANCISCO JAVIER CLINICAL HISTORY: HAS ESRD,H/O TRAUMATIC COMP FX,OTHER DISORDER BONE DENSITY, M85.88 TECHNIQUE: [employer] C densitometer COMPARISON: CR,XR XR HIP LT AP LAT ONLY from 07/29/2019 FINDINGS: Lateral view of the thoracic and lumbar spine shows no evidence of compression fractures. Bone mineral density measurements of the lumbar spine correspond to a total T-score of 0.5, in the n ormal range. Bone mineral density measurements of the left hip correspond to a total T-score of -0.3. The femora l neck T-score is -2.7, in the osteoporotic range.. The right forearm bone mineral density measurements correspond to a T-score of the distal 3rd of -0. 4, in the normal range.. IMPRESSION: Normal bone mineral density of the lumbar spine and right forearm. Overall normal bone mineral densi ty of the left hip. Femoral neck T-score is in the osteoporotic range.
== END 2020-11-12 01:43 ==
PROVIDERS: PCP Nurse Practitioner Family; Visit Provider Family Medicine
DX: M85.88 Other specified disorders of bone density and structure, other site (principal); N18.6 End stage renal disease; Z87.81 Personal history of (healed) traumatic fracture; Z99.2 Dependence on renal dialysis
CPT/HCPCS: 77080

== ENCOUNTER 2021-01-28 20:34 | Outpatient (REF) | payer MEDICARE, MEDICAID, SELFPAY ==
[2021-01-28 20:16] LABS: TSH (W/Ref FT4) 2.99 uIU/mL (0.36-3.74)
== END 2021-01-28 20:35 | disposition home or self-care (01) ==
LOC: NCHCN 20:34
PROVIDERS: PCP Nurse Practitioner Family; Visit Provider Family Medicine
DX: R25.1 Tremor, unspecified (principal)
CPT/HCPCS: 84443

== ENCOUNTER 2021-07-31 15:19 | Outpatient (REF) | payer MEDICARE, MEDICAID, SELFPAY ==
[2021-07-31 16:49] LABS: Anion Gap 8.3 mmol/L (3-11); BUN 31 mg/dL (7-18); CO2 32.7 mmol/L (21.0-32.0); Calcium 8.8 mg/dL (8.5-10.1); Chloride 100 mmol/L (98-107); Estimated GFR 9.76 (mL/min/1.73m2); Glucose 149 mg/dL (74-106); Potassium 4.6 mmol/L (3.5-5.1); Sodium 141 mmol/L (136-145); Vitamin B12 458 pg/mL (193-986)
[2021-07-31 20:39] LABS: CREATININE 5.9 mg/dL (0.70-1.30)
[2021-08-03 09:58] LABS: Hepatitis C Ab w Rflx HCV PCR Negative (Negative)
== END 2021-07-31 15:20 | disposition home or self-care (01) ==
LOC: NCHCN 15:19
PROVIDERS: PCP Nurse Practitioner Family; Visit Provider Family Medicine
DX: N18.6 End stage renal disease (principal); R41.3 Other amnesia; Z11.59 Encounter for screening for other viral diseases
CPT/HCPCS: 80048; 86803; 82607

== ENCOUNTER → 2021-12-18 00:28 | Outpatient (CLI) | payer MEDICARE, MEDICAID, SELFPAY ==
--- NOTE | 2021-12-18 12:35 | DI.CT_ITS ---
Exam(s) CT CHEST WO EXAM: CT CHEST WO CLINICAL HISTORY: LUNG SCAR J98.4 HYPOXIA R06.02 RENAL DISEASE N18.6 TECHNIQUE: Imaging Protocol: Axial computed tomography images with coronal and sagittal reformatted images were created and reviewed CONTRAST MATERIAL: Noncontrast COMPARISON: CT CT CHEST/ABD/PEL WO from 07/29/2019 FINDINGS: Tracheobronchial tree: No bronchiectasis or mucous plugging. Mediastinum and Lizeth: No dominant adenopathy or fluid collection. Pulmonary parenchyma: No consolidation or dominant measurable mass. Pleura: Stable left-sided pleural thickening and calcification. Stable appearance of adjacent scarri ng. No effusion or pneumothorax. Previously noted right posterior pleural thickening and adjacent gr ound-glass densities are no longer present. Heart: The heart is mildly dilated. Severe coronary artery calcifications are seen. The patient is status post CABG. Aorta: Thoracic aorta non-dilated. Echl-od-fwblweok calcification. Upper abdomen: Unremarkable. Lymph nodes: Within normal limits. Bones: Sternal wires. Flowing osteophytes in the spine. Soft tissues: Unremarkable. IMPRESSION: Stable left basilar pleural thickening and adjacent scarring. No acute abnormality. RADIATION DOSE DELIVERED: 895.28mGy.cm Total DLP DATA REPOSITORY: All CT scans at this facility are submitted to the National Radiology Data Registry (NRDR) Dose Index Registry (DIR) with the [employer] (ACR). RADIATION OPTIMIZATION: All CT scans at this facility use at least one of these dose optimization te chniques: automated exposure control; mA and/or kV adjustment per patient size (includes targeted exa ms where dose is matched to clinical indication); or iterative reconstruction.
== END ==
PROVIDERS: PCP Nurse Practitioner Family; Visit Provider Family Medicine
DX: J98.4 Other disorders of lung (principal); R06.02 Shortness of breath; N18.6 End stage renal disease
CPT/HCPCS: 71250

== ENCOUNTER 2022-01-01 02:24 | Outpatient (CLI) | payer MEDICARE, MEDICAID, SELFPAY ==
[2022-01-01] MEDS: Albuterol HFA 18 GM 200 PUFF INH IH (15:02)
[2022-01-01] MEDS: Inhaler, Assist Device 1 EACH MC (15:02)
--- NOTE | 2022-01-01 15:11 | W.PFT ---
Date of service: 01/01/22 Time of Service: 14:03 Pulmonary Function Test Result Requesting Provider Kimani Leger Indications: Hypoxia Interpretation Spirometry: There is no airflow limitation. The FVC is low. There is no significant bronchodilator response. Lung Volumes: There is moderate restrictive lung disease. Diffusion Capacity: The diffusion is low. Airway Pressure: Airways resistance is normal. Impression Moderate restrictive lung disease with a low diffusion reflective of the patients known left lung volume loss. Clinical Correlation therefore is recommended.
== END 2022-01-01 02:25 | disposition home or self-care (01) ==
LOC: RT 02:24
PROVIDERS: PCP Nurse Practitioner Family; Visit Provider Family Medicine
DX: R09.02 Hypoxemia (principal); J98.4 Other disorders of lung
CPT/HCPCS: 94060; 94726; 94729

== ENCOUNTER 2022-02-12 22:41 | Emergency (ER) | payer MEDICARE, MEDICAID, SELFPAY ==
--- NOTE | 2022-02-12 22:30 | RT.EKG_ITS ---
APPROVED REPORT Exam: Resting ECG Reason for Exam: chest pain Patient Location: E HR:92 bpm ECG Measurements Heart Rate 92 AXIS ID 218 P 64 QRSd 101 QRS 74 QT 370 T 123 QTc 458 Conclusion Sinus rhythm...normal P axis, V-rate 60- 99 Prolonged ID interval...ID >215, V-rate 91-120 Inferior infarct, old...Q >35mS, II III aVF Nonspecific T abnormalities, lateral leads...T <-0.10mV, I aVL V5 V6 Physician: Sinus rhythm, rate 92, prolonged ID at 218, QRS and QT normal. No significant ST elevatio ns or depressions. No STEMI. Q waves present in lead III.
[2022-02-12 22:45] VITALS: BP 175/70; PULSE 95; RESP 16; TEMP 36.5; O2SAT 96
[2022-02-12 23:08] LABS: Abs Immature Grans 0.05 10^3/uL (0.0-0.06); Absolute Basophil Count 0.03 10^3/uL (0.0-0.2); Absolute Eosinophil Count 0.97 10^3/uL (0.0-0.7); Absolute Lymphocyte Count 0.85 10^3/uL (1.2-3.4); Absolute Monocyte Count 0.54 10^3/uL (0.1-0.8); Absolute Neutrophil Count 5.88 10^3/uL (1.2-6.7); Basophils % 0.4; Eosinophils % 11.7; HCT 28.6 % (40.0-50.0); HGB 9.7 g/dL (13.5-17.5); Immature Grans % 0.6; Lymphocytes % 10.2; MCH 31.8 pg (27.0-33.0); MCHC 33.9 % (32.0-36.0); MCV 94 fL (80-95); MPV 9.5 fL (8.0-11.0); Monocytes % 6.5; Neutrophils % 70.6; Platelet Count 125 10^3/uL (130-400); RBC 3.05 10^6/uL (4.36-5.78); RDW 12.2 % (11.8-14.1); RDW-SD 42.1 fL; WBC 8.32 10^3/uL (4.4-10.8)
--- NOTE | 2022-02-12 23:15 | DI.CT_ITS ---
Exam(s) CT CHEST/ABD/PEL WO EXAM: CT CHEST/ABD/PEL WO CLINICAL HISTORY: right flank pain that radiates to chest TECHNIQUE: Imaging Protocol: Axial computed tomography images with coronal and sagittal reformatted images were created and reviewed COMPARISON: CT CT CHEST WO from 12/18/2021 FINDINGS: CHEST: Tracheobronchial tree: Patent where visualized. Pulmonary parenchyma: There is stable scarring seen in the left lower lobe. No new focal consolidati ng infiltrates are present. No architectural distortion. Mediastinum and Lizeth: No dominant adenopathy or fluid collection. The esophagus is unremarkable. Thyroid gland: Unremarkable. Pleura: There is stable pleural calcification in thickening in the left lung base. No right pleural effusion is seen. There is no pneumothorax. Heart: The patient is status post CABG. The heart is at the upper limits of normal. Coronary artery calcification is seen. No pericardial effusion. Aorta: Thoracic aorta non-dilated. Atherosclerosis is present. Lymph nodes: Within normal limits. Bones:Within normal limits for the patient's age. Soft tissues: Bilateral gynecomastia. ABDOMEN: Liver: Normal density. No measurable mass. Gallbladder and Biliary Tract: Findings suggestive of gallstones. Ultrasound may be indicated for fu rther evaluation. No biliary ductal dilatation. Pancreas: Stranding is seen around the pancreas suspicious for acute pancreatitis. No focal fluid co llection is seen around the pancreas. Spleen: Normal. Adrenals: No masses seen. Kidneys: Normal size, contour and axis. No radiodense stones or obstructive uropathy. No masses seen. Abdominal Aorta: Abdominal portion non-dilated. Atherosclerosis is present. Bowel: No obstruction or bowel wall thickening. Appendix is unremarkable. Peritoneal Cavity: No ascites, collection or mesenteric inflammatory response. No free air. Lymph Nodes: Within normal limits. Bones: Within normal limits for the patient's age. Soft Tissues: There is a fat containing umbilical hernia. PELVIS: Bladder: Symmetric distention, no gross wall thickening. Reproductive Organs: Unremarkable as visualized. Lymph Nodes: Within normal limits. Bones: Within normal limits for the patient's age. IMPRESSION: 1. No acute pulmonary process. 2. Inflammatory changes seen around the pancreas suspicious for acute pancreatitis. No peripancreati c fluid collection is seen. RADIATION DOSE DELIVERED: 1,554.75mGy.cm Total DLP 1,554.75mGy.cm Total DLP DATA REPOSITORY: All CT scans at this facility are submitted to the National Radiology Data Registry (NRDR) Dose Index Registry (DIR) with the [employer] (ACR). RADIATION OPTIMIZATION: All CT scans at this facility use at least one of these dose optimization te chniques: automated exposure control; mA and/or kV adjustment per patient size (includes targeted exa ms where dose is matched to clinical indication); or iterative reconstruction.
[2022-02-12 23:21] LABS: Prothrombin Time 10.2 sec (9.3-11.0)
[2022-02-12 23:22] LABS: ALT 20 U/L (16-63); AST 17 U/L (15-37); Albumin 3.7 g/dL (3.4-5.0); Alkaline Phosphatase 98 U/L (46-116); Anion Gap 6.3 mmol/L (3-11); BUN 45 mg/dL (7-18); Bilirubin, Total 0.3 mg/dL (0.2-1.0); CO2 33.7 mmol/L (21.0-32.0); Calcium 8.6 mg/dL (8.5-10.1); Chloride 93 mmol/L (98-107); Glucose 317 mg/dL (74-106); Sodium 133 mmol/L (136-145); Total Protein 8.1 g/dL (6.4-8.2); Troponin I < 50 ng/L (<or=60)
[2022-02-12 23:24] LABS: CREATININE 7.1 mg/dL (0.70-1.30)
--- NOTE | 2022-02-12 23:24 | ED.GENADUL_ITS ---
Discharge Plan Disposition Patient Disposition: HOME Condition: Stable Discharge Details Clinical Impression: Acute pancreatitis Primary Care Provider: Kimani Leger ED Provider: Efraín Mac Home Meds and New Rx's Prescriptions: No Action losartan 50 mg tablet 50 mg PO DAILY tamsulosin 0.4 mg capsule 0.4 mg PO DAILY aspirin 325 mg tablet 325 mg PO DAILY sevelamer carbonate [Renvela] 800 mg tablet 800 mg PO TID amlodipine 5 mg tablet 5 mg PO DAILY gabapentin 300 mg capsule 300 mg PO BID fluticasone propionate [Flonase Allergy Relief] 50 mcg/actuation spray,suspension 1 spray intranasal BID Rx Instructions: administer into each nostril insulin glargine [Basaglar KwikPen U-100 Insulin] 100 unit/mL (3 mL) insulin pen 60 unit subcut QAM Trulicity 0.75 mg/0.5 mL pen injector 0.75 mg subcut QWEEK Rx Instructions: Dose unverified. (DME) lancets 1 EACH misc 1 ea Miscellaneous QID Qty: 400 Rx Instructions: DX: 250.0 IDDM (DME) BD Regular Bevel Wharton 1 EACH needle 1 ea Intrauterine AC Qty: 100 Rx Instructions: insulin pen needles (DME) pen needle, diabetic 1 EACH needle 1 ea Sub-Q TID Qty: 100 Rx Instructions: 31G X 1 DX: 250 (DME) Blood Glucose Test 1 EACH strip 1 ea Miscellaneous QID Qty: 400 Rx Instructions: DX:250.0 IDDM One touch ultra bumetanide 1 mg tablet 2 mg PO BID gabapentin 100 mg capsule 200 mg PO QHS sertraline 50 mg tablet 50 mg PO DAILY insulin aspart U-100 [Novolog Flexpen U-100 Insulin] 100 unit/mL (3 mL) insulin pen 20 unit subcut AC Qty: 3 Label Comments: per pt uses as sliding scale atorvastatin [Lipitor] 40 mg tablet 1 tab PO HS Label Comments: TAKE ONE TABLET BY MOUTH EVERY EVENING Discharge Instructions Instructions: Pancreatitis (ED) Additional Instructions: At this time you have pancreatitis. There is shared decision-making process you have elected to go home. Please avoid any food intake over the next 48 hours. Stick with sips of water, and clear liquids. Take the Zofran and pain medicine only as needed. You can take Tylenol as needed for pain. If you notice any worsening of your symptoms, or any new symptoms such as vomiting, diarrhea, fever, chills, shortness of breath, chest pain, numbness, weakness, or fainting , please return immediately to the emergency department for reevaluation. Please follow up with your primary care provider as soon as possible for reassessment and reevaluation. As always, it was a pleasure participating in your medical care today. Referrals: Kimani Leger [Primary Care Provider] - Medical Decision Making 61-year-old male with a past medical history of renal failure on dialysis Tuesday//Tuesday, CABG in 2014, congestive heart failure, high cholesterol, aspirin use, diabetes, who presents today for evaluation of flank pain. Patient states that for the last 2 days he has had the symptoms. It was gradual in onset. Radiates from his right flank to his right chest. He denies any cough or shortness of breath. He denies any fever or chills. He denies any history of kidney stone. Pain initially was coming and going with severity but is now constant. It did diminish earlier today but worsened tonight. He did take Tylenol earlier. He denies any other complaints at this time. No other modifying factors. Exam demonstrates a well-appearing male, patient looks clinically stable at this time. Vital signs are stable. Right abdominal CVA tenderness is present. No reproducible chest wall tenderness. No evidence of rash. Differential includes renal etiology, kidney stone, pneumonia. No tearing or ripping. Symptoms appear inconsistent with dissection or aneurysm clinically. We will get a CT scan of the affected area, evaluate for cardiac etiology, monitor closely and reassess. 3:41 AM Laboratory work-up has returned, lipase notably elevated at 4000. Patient denies any recent alcohol use. No white count. No bandemia. Electrolytes relatively stable, creatinine obviously elevated with his history of renal failure troponin x2 is normal. EKG is stable.. CT scan confirms evidence of pancreatitis. Patient feels well but would like something mild for pain. He has not tolerated morphine well before. We did give him Dilaudid this completely took away his pain. I discussed admission versus discharge. Currently we do not have any beds available here, and there are no MedSur level bed available at [facility], [facility], [facility], and the closest potential bed he is in [facility] in [place] or [place]. Patient does not want to be transferred at all. He prefers and request to be discharged home instead. We did discuss risk and benefits of this and the patient understands. Patient did perform p.o. trial and tolerated this well with no vomiting. I do feel that the patient would be a candidate for potential discharge with prompt return if his symptoms do return. We will monitor the patient here until he is able to get a ride with RCT. Patient is stable and appropriate for discharge at this time. I have extensively reviewed the treatment plan and discharge instructions with the patient. I have addressed all patient concerns at this time. The patient was made aware of what symptoms to monitor for that would warrant a return to the emergency department. Discussed the plan with the patient, they demonstrate verbal understanding and agreement with our assessment and plan at this time. The documentation in this chart was dictated using [employer] dictation software. Please excuse any dictation errors. 6 AM Patient was monitored throughout the night and did very well. He tolerated p.o. well. His pain is resolved. He still would like to go home and does not want to be transferred or admitted at this time. [place] score is low. Symptoms inconsistent with severe pancreatitis at this time requiring admission. Patient will be discharged home with Zofran and some pain meds as needed. Discussed appropriate diet moving forward. I have extensively reviewed the treatment plan and discharge instructions with the patient. I have addressed all patient concerns at this time. The patient was made aware of what symptoms to monitor for that would warrant a return to the emergency department. Discussed the plan with the patient, they demonstrate verbal understanding and agreement with our assessment and plan at this time. The documentation in this chart was dictated using [employer] dictation software. Please excuse any dictation errors. EKG 22: 49 Sinus rhythm, rate 92, prolonged OH at 218, QRS and QT normal. No significant ST elevations or depressions. No STEMI. Q waves present in lead III. FINDINGS: Lungs: Opacity at the left lung base with loss of volume and changes of fi brosis, likely rounded atelectasis. Pleural spaces: Unremarkable. No pneumothorax. No pleural effusion. Heart: Coronary arterial calcifications. Lymph nodes: Unremarkable. No enlarged lymph nodes. Vasculature: Atherosclerotic thoracic aorta. Bones/joints: Status post thoracotomy via mid sternotomy. Degenerative changes within thoracic spine. Soft tissues: Unremarkable. IMPRESSION: No acute chest disease FINDINGS: Liver: No mass. Gallbladder and bile ducts: No calcified stones. No ductal dilation. Pancreas: Mild stranding/infiltration surrounding head of the pancreas, cannot rule out acute pancreatitis. No walled-off fluid collections identified. Spleen: No splenomegaly. Adrenal glands: Normal. No mass. Kidneys and ureters: Unremarkable. No hydronephrosis. Stomach and bowel: No obstruction. No mucosal thickening. Appendix: No evidence of appendicitis. Intraperitoneal space: No free air. No significant fluid collection. Vasculature: Bilateral pelvic phleboliths. Atherosclerotic abdominal aorta, no abdominal aortic aneurysm. Lymph nodes: Enlarged portacaval lymph node, up to 12 mm in short axis. Urinary bladder: Unremarkable as visualized. Reproductive: Prostatic calcifications. Calcified vas deferens. Bones/joints: Degenerative changes within lumbar spine. Soft tissues: Small fat containing anterior abdominal wall hernia. IMPRESSION: Stranding/infiltration surrounding the head of the pancreas, cannot rule out acute pancreatitis. Thank you for allowing us to participate in the care of your patient. Dictated and Authenticated by: Jt Parmar MD 02/13/2022 1:08 AM Eastern Time ([place] & [place]) HPI General Date/Time Provider Initiated Documentation: 02/12/22 22:50 . HPI Narrative: 61-year-old male with a past medical history of renal failure on dialysis Tuesday//Tuesday, CABG in 2014, congestive heart failure, high cholesterol, aspirin use, diabetes, who presents today for evaluation of flank pain. Patient states that for the last 2 days he has had the symptoms. It was gradual in onset. Radiates from his right flank to his right chest. He denies any cough or shortness of breath. He denies any fever or chills. He denies any history of kidney stone. Pain initially was coming and going with severity but is now constant. It did diminish earlier today but worsened tonight. He did take Tylenol earlier. He denies any other complaints at this time. No other modifying factors. Related Data Home Medications Medication Instructions Recorded Confirmed lancets 28 gauge #400 ea 08/18/12 02/03/22 needle (disp) 21 G 21 gauge x 1 ##100 08/31/12 02/03/222 (BD Regular Bevel Wharton) pen needle, diabetic 31 gauge x ##100 11/15/13 02/03/2205/04 blood sugar diagnostic (Blood #400 strips 12/05/13 02/03/22 Glucose Test strips) losartan 50 mg tablet 50 mg PO DAILY 09/15/18 02/12/22 tamsulosin 0.4 mg capsule 0.4 mg PO DAILY 09/15/18 02/03/22 amlodipine 5 mg tablet 5 mg PO DAILY 04/27/19 02/12/22 aspirin 325 mg tablet 325 mg PO DAILY 04/27/19 02/12/22 sevelamer carbonate 800 mg tablet 800 mg PO TID 04/27/19 02/12/22 (Renvela) bumetanide 1 mg tablet 2 mg PO BID 03/11/20 02/12/22 gabapentin 100 mg capsule 200 mg PO QHS 03/11/20 02/12/22 sertraline 50 mg tablet 50 mg PO DAILY 03/11/20 02/12/22 gabapentin 300 mg capsule 300 mg PO BID 04/17/20 02/12/22 fluticasone propionate 50 1 spray intranasal BID 11/11/20 02/12/22 mcg/actuation nasal spray,suspension (Flonase Allergy Relief) insulin aspart U-100 100 unit/mL 20 unit subcut AC #3 mL 11/11/20 02/12/22 (3 mL) subcutaneous pen (Novolog Flexpen U-100 Insulin aspart) insulin glargine 100 unit/mL (3 60 unit subcut QAM 11/11/20 02/12/22 mL) subcutaneous pen (Basaglar KwikPen U-100 Insulin) dulaglutide 0.75 mg/0.5 mL 0.75 mg subcut QWEEK 02/03/22 02/12/22 subcutaneous pen injector (Trulicity) atorvastatin 40 mg tablet (Lipitor) 1 tab PO HS 02/12/22 02/12/22 Allergies Allergy/AdvReac Type Severity Reaction Status Date / Time ciprofloxacin Allergy Intermediate rash from Verified 02/12/22 22:50 IV Penicillins Allergy Other (See Unverified 02/12/22 22:50 Comment) General Stated Complaint: FlankPain ABBIE: 2 Review of Systems All systems reviewed & are unremarkable except as noted in HPI and below PFSH All Active Problems (Updated 02/13/22 @ 05:55 by Efraín Mac DO) Acute pancreatitis (Acute) Corns and callosities (Acute) Nail dystrophy (Acute) No-show for appointment (Acute) Secondary adhesive capsulitis of right shoulder (Acute) Trigger finger, right ring finger (Acute) Injection: 04/30/2019 Trigger finger, left middle finger (Acute) Colorectal polyps (Acute ~01/22/19) hyperplastic polyps Medical History Anxiety with depression Arteriovenous fistula lt arm Blind right eye CHF (congestive heart failure) Coronary arteriosclerosis Depression Diabetic retinopathy ESRD (end stage renal disease) AV fistula for hemodialysis Heart disease HTN (hypertension) Hyperlipidemia Type 2 diabetes mellitus Surgical History Arthroplasty of knee (~1973) per pt knee arthroscopy not a TKA! Open Carpal Tunnel release (~2001) b/l S/P CABG (coronary artery bypass graft) S/P eye surgery Family History Father Heart disease Diabetes Mother Diabetes Renal disease Brother , from cardiac disease in his 50's Heart disease Social History Smoking/Tobacco Use Status: Former Tobacco Use Smoking risk assessment performed?: Yes Alcohol Intake: former Drug use: Current Sobriety Substance use type: marijuana Details: marijuana in the 70's Household members: spouse and children Housing: house Number of Children: 1 current occupation: Disabled Current gender identity: male What is your relationship status?: Panel score (0-1 are the most socially isolated patients): 1 What type of physical activity do you participate in: other Details: under desk qubi Seatbelt use: always Do you feel safe at home: Yes Do you feel safe in your relationship?: Yes Exam Narrative Exam Narrative: 1.Const: Well-nourished, Well-developed, appearing stated age 2.Eyes: PERRL, no conjunctival injection, and symmetrical lids. 3.ENT: Atraumatic external nose and ears. Moist MM. Neck: Symmetric, trachea midline, No thyromegaly. 4.CVS: +S1/S2, No murmurs or gallops. Peripheral pulses 2+ and equal in all extremities. Brisk capillary refill in all extremities. Left-sided upper extremity fistula is patent with good thrill 5.RESP: Unlabored respiratory effort. Clear to auscultation bilaterally. No wheezes rales or rhonchi 6.GI: Soft, nondistended, right CVA tenderness, right upper and lower abdominal tenderness. 7.MSK: Normocephalic/Atraumatic, Extremities w/o deformity or ttp No cyanosis or clubbing, Normal movement of all extremities 8.Skin: Warm, Dry. No rashes or lesions. 9.Neuro: merchandising lead II-XII grossly intact. Sensation grossly intact, no focal neurologic deficits. 10.Psych: (AAO) x3. Appropriate mood and affect Course Vital Signs Vital signs: Vital Signs Temperature 36.5 C 02/12/22 22:45 Pulse 95 H 02/12/22 22:45 Respiratory Rate 16 02/12/22 22:45 Blood Pressure 175/70 H 02/12/22 22:45 Pulse Oximetry 96 02/12/22 22:45 Temperature 36.5 C 02/12/22 22:45 Temperature Source Temporal Artery Scan 02/12/22 22:45 Pulse 95 H 02/12/22 22:45 Respiratory Rate 16 02/12/22 22:45 Respiratory Effort Non-Labored 02/12/22 22:48 Blood Pressure 175/70 H 02/12/22 22:45 Blood Pressure Position Supine 02/12/22 22:45 Pulse Oximetry 96 02/12/22 22:45 Oxygen Delivery Method Nasal Cannula 02/12/22 22:45 Oxygen Flow Rate 2 02/12/22 22:45 Pain Level 8 02/12/22 22:45 Lab/Test Results Lab/Test Results: Laboratory Tests Range/Units 02/12/22 02/12/22 22:58 22:58 WBC (4.4-10.8) 10^3/uL 8.32 RBC (4.36-5.78) 10^6/uL 3.05 L Hgb (13.5-17.5) g/dL 9.7 L Hct (40.0-50.0) % 28.6 L MCV (80-95) fL 94 MCH (27.0-33.0) pg 31.8 MCHC (32.0-36.0) % 33.9 RDW (11.8-14.1) % 12.2 Plt Count (130-400) 10^3/uL 125 L MPV (8.0-11.0) fL 9.5 Immature Gran % 0.6 Neutrophils % 70.6 Lymphocytes % 10.2 Monocytes % 6.5 Eosinophils % 11.7 Basophils % 0.4 Nucleated RBC % (0.0-0.3) % 0.0 Absolute Neutrophils (1.2-6.7) 10^3/uL 5.88 Absolute Lymphocytes (1.2-3.4) 10^3/uL 0.85 L Absolute Monocytes (0.1-0.8) 10^3/uL 0.54 Absolute Eosinophils (0.0-0.7) 10^3/uL 0.97 H Absolute Basophils (0.0-0.2) 10^3/uL 0.03 PT (9.3-11.0) sec 10.2 INR (0.9-1.1) 1.0 APTT (21.0-27.5) sec 29.0 H
[2022-02-13 00:01] LABS: Lipase 4755 U/L (73-393)
[2022-02-13] MEDS: HYDROmorphone 2 MG/ML SYR 1 MG IVP (00:38)
[2022-02-13] MEDS: Ondansetron 4 MG/2 ML VIAL IVP (00:39)
--- NOTE | 2022-02-13 01:08 | DI.VRAD_ITS ---
PROCEDURE INFORMATION: Exam: CT Chest Without Contrast; Diagnostic Exam date and time: 02/12/2022 11:33 PM Age: 61 years old Clinical indication: Right-sided and other: Right flank pain that radiates to chest; Prior surgery; Surgery date: 6+ months; Surgery type: Gastric bypass TECHNIQUE: Imaging protocol: Diagnostic computed tomography of the chest without contrast. Radiation optimization: All CT scans at this facility use at least one of these dose optimization techniques: automated exposure control; mA and/or kV adjustment per patient size (includes targeted exams where dose is matched to clinical indication); or iterative reconstruction. COMPARISON: CT CHEST WO 12/18/2021 12:38 PM FINDINGS: Lungs: Opacity at the left lung base with loss of volume and changes of fibrosis, likely rounded atelectasis. Pleural spaces: Unremarkable. No pneumothorax. No pleural effusion. Heart: Coronary arterial calcifications. Lymph nodes: Unremarkable. No enlarged lymph nodes. Vasculature: Atherosclerotic thoracic aorta. Bones/joints: Status post thoracotomy via mid sternotomy. Degenerative changes within thoracic spine. Soft tissues: Unremarkable. IMPRESSION: No acute chest disease. PROCEDURE INFORMATION: Exam: CT Abdomen And Pelvis Without Contrast Exam date and time: 02/12/2022 11:33 PM Age: 61 years old Clinical indication: Right-sided and other: Right flank pain that radiates to chest; Prior surgery; Surgery date: 6+ months; Surgery type: Gastric bypass TECHNIQUE: Imaging protocol: Computed tomography of the abdomen and pelvis without contrast. Radiation optimization: All CT scans at this facility use at least one of these dose optimization techniques: automated exposure control; mA and/or kV adjustment per patient size (includes targeted exams where dose is matched to clinical indication); or iterative reconstruction. COMPARISON: CT CHEST/ABD/PEL WO 07/29/2019 8:16 PM FINDINGS: Liver: No mass. Gallbladder and bile ducts: No calcified stones. No ductal dilation. Pancreas: Mild stranding/infiltration surrounding head of the pancreas, cannot rule out acute pancreatitis. No walled-off fluid collections identified. Spleen: No splenomegaly. Adrenal glands: Normal. No mass. Kidneys and ureters: Unremarkable. No hydronephrosis. Stomach and bowel: No obstruction. No mucosal thickening. Appendix: No evidence of appendicitis. Intraperitoneal space: No free air. No significant fluid collection. Vasculature: Bilateral pelvic phleboliths. Atherosclerotic abdominal aorta, no abdominal aortic aneurysm. Lymph nodes: Enlarged portacaval lymph node, up to 12 mm in short axis. Urinary bladder: Unremarkable as visualized. Reproductive: Prostatic calcifications. Calcified vas deferens. Bones/joints: Degenerative changes within lumbar spine. Soft tissues: Small fat containing anterior abdominal wall hernia. IMPRESSION: Stranding/infiltration surrounding the head of the pancreas, cannot rule out acute pancreatitis. Dictated and Authenticated by: Jt Parmar MD. Ordering:MANDY Kenny MD
[2022-02-13 01:55] LABS: Troponin I < 50 ng/L (<or=60)
[2022-02-13 06:12] VITALS: BP 168/68; PULSE 81; RESP 19; O2SAT 96
== END 2022-02-13 06:13 | disposition home or self-care (01) ==
PROVIDERS: Emergency Medicine; Emergency Provider Student in an Organized Health Care Education/Training Program; PCP Family Medicine
DX: K85.90 Acute pancreatitis without necrosis or infection, unspecified (principal); E11.22 Type 2 diabetes mellitus with diabetic chronic kidney disease; N18.6 End stage renal disease; Z99.2 Dependence on renal dialysis; I13.2 Hypertensive heart and chronic kidney disease with heart failure and with stage 5 chronic kidney disease, or end stage renal disease; I50.9 Heart failure, unspecified
CPT/HCPCS: 71250; 80053; 83690; 93005; 96374; 96375; 99284; 74176; 83735; 84484; 85025; 85610; 85730; 93010; J1170; J2405

== ENCOUNTER → 2023-05-31 11:19 | Outpatient (BNVA) | payer MEDICARE, MEDICAID, SELFPAY | PROVIDERS: PCP Family Medicine; Referring Provider Family Medicine; Visit Provider Podiatrist | DX: L97.512 Non-pressure chronic ulcer of other part of right foot with fat layer exposed (principal); E11.621 Type 2 diabetes mellitus with foot ulcer; E11.9 Type 2 diabetes mellitus without complications; I50.9 Heart failure, unspecified; I25.10 Atherosclerotic heart disease of native coronary artery without angina pectoris; Z99.2 Dependence on renal dialysis; R09.89 Other specified symptoms and signs involving the circulatory and respiratory systems; L60.3 Nail dystrophy; R20.9 Unspecified disturbances of skin sensation; B35.1 Tinea unguium; R20.8 Other disturbances of skin sensation; L84 Corns and callosities; E11.319 Type 2 diabetes mellitus with unspecified diabetic retinopathy without macular edema; N18.6 End stage renal disease; R23.4 Changes in skin texture | CPT/HCPCS: 11042; 11721 ==

== ENCOUNTER → 2023-06-14 14:38 | Outpatient (BNVA) | payer MEDICARE, MEDICAID, SELFPAY | PROVIDERS: PCP Family Medicine; Referring Provider Family Medicine; Visit Provider Podiatrist | DX: L97.512 Non-pressure chronic ulcer of other part of right foot with fat layer exposed; E11.621 Type 2 diabetes mellitus with foot ulcer; Z99.2 Dependence on renal dialysis | CPT/HCPCS: 11042; 97597 ==

== ENCOUNTER → 2023-06-29 13:07 | Outpatient (BNVA) | payer MEDICARE, MEDICAID, SELFPAY | PROVIDERS: PCP Family Medicine; Referring Provider Family Medicine; Visit Provider Podiatrist | DX: L97.512 Non-pressure chronic ulcer of other part of right foot with fat layer exposed (principal); E11.621 Type 2 diabetes mellitus with foot ulcer; I50.9 Heart failure, unspecified; I25.10 Atherosclerotic heart disease of native coronary artery without angina pectoris; Z99.2 Dependence on renal dialysis; Z99.81 Dependence on supplemental oxygen | CPT/HCPCS: 28008; 97597 ==

== ENCOUNTER → 2023-07-14 10:58 | Outpatient (BNVA) | payer MEDICARE, MEDICAID, SELFPAY | PROVIDERS: PCP Family Medicine; Referring Provider Family Medicine; Visit Provider Podiatrist | DX: E11.621 Type 2 diabetes mellitus with foot ulcer; I25.10 Atherosclerotic heart disease of native coronary artery without angina pectoris; Z99.2 Dependence on renal dialysis; L97.512 Non-pressure chronic ulcer of other part of right foot with fat layer exposed; Z99.81 Dependence on supplemental oxygen; R09.89 Other specified symptoms and signs involving the circulatory and respiratory systems; L85.9 Epidermal thickening, unspecified; E11.51 Type 2 diabetes mellitus with diabetic peripheral angiopathy without gangrene; E11.42 Type 2 diabetes mellitus with diabetic polyneuropathy | CPT/HCPCS: 11055 ==

== ENCOUNTER 2023-08-15 17:27 | Outpatient (REF) | payer MEDICARE, MEDICAID, SELFPAY ==
[2023-08-19 22:43] LABS: Pancreatic Elastase, F >500 mcg/g
== END 2023-08-15 17:28 | disposition home or self-care (01) ==
LOC: NCHCN 17:27
PROVIDERS: PCP Family Medicine; Visit Provider Family Medicine
DX: R19.7 Diarrhea, unspecified
CPT/HCPCS: 87329; 87493; 82656

== ENCOUNTER 2023-09-20 16:38 | Emergency (ER) | payer MEDICARE, MEDICAID, SELFPAY ==
[2023-09-20] VITALS (38 sets, daily range): BP systolic 92–167; BP diastolic 43–78; PULSE 44–94; RESP 9–25; TEMP 36.3–36.7; O2SAT 92–99
--- NOTE | 2023-09-20 16:30 | RT.EKG_ITS ---
APPROVED REPORT Exam: Resting ECG Reason for Exam: nausea Patient Location: E HR:53 bpm ECG Measurements Heart Rate 53 AXIS SC 256 P 194 QRSd 113 QRS 112 QT 415 T -15 QTc 391 Conclusion Sinus or ectopic atrial bradycardia...P axis (-45,135), rate< 60 Prolonged SC interval...SC >220, V-rate 50- 90 Inferior infarct, age indeterminate...Q>35mS, T neg, II III aVF
--- NOTE | 2023-09-20 16:47 | W.ED.GENAD ---
Discharge Plan Disposition Patient Disposition: Home Condition: Stable Discharge Details Clinical Impression: Hyperkalemia Primary Care Provider: Kimani Leger ED Provider: Young Nava Home Meds and New Rx's Prescriptions: New prednisone 20 mg tablet 60 mg PO DAILY 4 Days Qty: 12 0RF doxycycline hyclate 100 mg tablet 100 mg PO BID Qty: 14 0RF Continued sevelamer carbonate [Renvela] 800 mg tablet 800 mg PO TID gabapentin 300 mg capsule 300 mg PO TID albuterol sulfate [Ventolin HFA] 90 mcg/actuation HFA aerosol inhaler 2 puff inhalation Q6H PRN (Reason: shortness of breath or wheezing) Qty: 8.5 4RF fluticasone furoate-vilanterol [Breo Ellipta] 100-25 mcg/dose blister with device 1 inh inhalation DAILY Qty: 60 3RF fluticasone propionate [Flonase Allergy Relief] 50 mcg/actuation spray,suspension 1 spray intranasal BID Rx Instructions: administer into each nostril insulin glargine [Basaglar KwikPen U-100 Insulin] 100 unit/mL (3 mL) insulin pen 30 unit subcut HS (DME) Oxygen Tank See Rx Instructions .Route Rx Instructions: continuous at 2 L (DME) lancets 1 EACH misc 1 ea Miscellaneous QID Qty: 400 Rx Instructions: DX: 250.0 IDDM (DME) BD Regular Bevel Sanders 1 EACH needle 1 ea Intrauterine AC Qty: 100 Rx Instructions: insulin pen needles (DME) pen needle, diabetic 1 EACH needle 1 ea Sub-Q TID Qty: 100 Rx Instructions: 31G X 1 DX: 250 (DME) Blood Glucose Test 1 EACH strip 1 ea Miscellaneous QID Qty: 400 Rx Instructions: DX:250.0 IDDM One touch ultra sertraline 50 mg tablet 50 mg PO DAILY insulin aspart U-100 [Novolog FlexPen U-100 Insulin] 100 unit/mL (3 mL) insulin pen 16 unit subcut DIRECTED Rx Instructions: 16-20 U hs amlodipine 10 mg tablet 10 mg PO DAILY amlodipine 5 mg tablet 5 mg PO DAILY aspirin 325 mg tablet 325 mg PO DAILY diclofenac sodium [Aleve (diclofenac)] 1 % gel 2 g topical QID Rx Instructions: apply to single elbow, wrist or hand; for hand includes palm/fingers/back of hand (DME) EasiVent Holding Chamber Spacer See Rx Instructions .Route Rx Instructions: As directed losartan 50 mg tablet 50 mg PO DAILY tamsulosin 0.4 mg capsule 0.4 mg PO DAILY albuterol sulfate [Ventolin HFA] 90 mcg/actuation HFA aerosol inhaler 2 puff inhalation Q6H PRN atorvastatin [Lipitor] 40 mg tablet 1 tab PO HS Patient Comments: TAKE ONE TABLET BY MOUTH EVERY EVENING Discharge Instructions Additional Instructions: Your potassium level was elevated due to missing her dialysis yesterday. Given medications to lower it. Take a dose of the Lokelma tonight. Please go to dialysis as scheduled in the morning Follow-up with your primary care provider and workers' compensation hearings officer in 1 to 2 weeks If you feel more ill, have severe worsening shortness of breath or new symptoms such as high fevers return to the emergency department for reevaluation HPI General Mode of arrival: EMS. Date/Time Provider Initiated Documentation: 09/20/23 16:46. Limitations to Documentation: no limitations. Information obtained by: patient. History of Present Illness 63 year old M presents to the emergency department with the chief complaint of diarrhea, described as moderate, Patient started experiencing this month(s) (3) and it has been intermittent. No relieving factors improve symptom(s), No exacerbating factors reported . Patient notes cough; denies chest pain and fever/chills. Patient did receive the following treatments prior to arrival, none Related Data Home Medications Medication Instructions Recorded Confirmed lancets 28 gauge #400 ea 08/18/12 09/20/23 needle (disp) 21 G 21 gauge x 1 ##100 08/31/12 09/20/2305/03 (BD Regular Bevel Sanders) pen needle, diabetic 31 gauge x ##100 11/15/13 09/20/2305/04 blood sugar diagnostic (Blood #400 strips 12/05/13 09/20/23 Glucose Test strips) sevelamer carbonate 800 mg tablet 800 mg PO TID 04/27/19 09/20/23 (Renvela) sertraline 50 mg tablet 50 mg PO DAILY 03/11/20 09/20/23 fluticasone propionate 50 1 spray intranasal BID 11/11/20 09/20/23 mcg/actuation nasal spray,suspension (Flonase Allergy Relief) atorvastatin 40 mg tablet (Lipitor) 1 tab PO HS 02/12/22 09/20/23 gabapentin 300 mg capsule 300 mg PO TID 03/17/22 09/20/23 Oxygen 05/14/22 09/20/23 albuterol sulfate 90 mcg/actuation 2 puff inhalation Q6H PRN 06/11/22 09/20/23 aerosol inhaler (Ventolin HFA) shortness of breath or wheezing #8.5 grams fluticasone furoate 100 1 inh inhalation DAILY #60 ea 06/11/22 09/20/23 mcg-vilanterol 25 mcg/dose inhalation powder (Breo Ellipta) insulin aspart U-100 100 unit/mL 16 unit subcut DIRECTED 09/01/22 09/20/23 (3 mL) subcutaneous pen (Novolog FlexPen U-100 Insulin aspart) insulin glargine 100 unit/mL (3 30 unit subcut HS 09/01/22 09/20/23 mL) subcutaneous pen (Basaglar KwikPen U-100 Insulin) albuterol sulfate 90 mcg/actuation 2 puff inhalation Q6H PRN 05/03/23 09/20/23 aerosol inhaler (Ventolin HFA) amlodipine 10 mg tablet 10 mg PO DAILY 05/03/23 09/20/23 amlodipine 5 mg tablet 5 mg PO DAILY 05/03/23 09/20/23 aspirin 325 mg tablet 325 mg PO DAILY 05/03/23 09/20/23 diclofenac sodium 1 % topical gel 2 g topical QID 05/03/23 09/20/23 (Aleve (diclofenac)) inhalational spacing device 05/03/23 09/20/23 (EasiVent Holding Chamber) losartan 50 mg tablet 50 mg PO DAILY 05/03/23 09/20/23 tamsulosin 0.4 mg capsule 0.4 mg PO DAILY 05/03/23 09/20/23 doxycycline hyclate 100 mg tablet 100 mg PO BID #14 tabs 09/20/23 prednisone 20 mg tablet 60 mg (3 x 20 mg) PO DAILY 4 days 09/20/23 #12 tabs Previous Rx's Medication Instructions Recorded albuterol sulfate 90 mcg/actuation 2 puff inhalation Q6H PRN 06/11/22 aerosol inhaler (Ventolin HFA) shortness of breath or wheezing #8.5 grams fluticasone furoate 100 1 inh inhalation DAILY #60 ea 06/11/22 mcg-vilanterol 25 mcg/dose inhalation powder (Breo Ellipta) doxycycline hyclate 100 mg tablet 100 mg PO BID #14 tabs 09/20/23 prednisone 20 mg tablet 60 mg (3 x 20 mg) PO DAILY 4 days 09/20/23 #12 tabs Allergies Allergy/AdvReac Type Severity Reaction Status Date / Time ciprofloxacin Allergy Intermediate rash from Verified 09/20/23 16:59 IV General Stated Complaint: Dizzy/Sync ABBIE: 3 Review of Systems All systems reviewed & are unremarkable except as noted in HPI and below Constitutional Constitutional: Denies chills and Denies fever(s) Cardiovascular Cardiovascular: Denies chest pain and Denies dyspnea Respiratory Respiratory: Denies dyspnea Gastrointestinal Gastrointestinal: Denies abdominal pain, Reports diarrhea, Denies nausea and Denies vomiting Musculoskeletal Musculoskeletal: Denies joint swelling Exam Const General: no acute distress Orientation: alert HENMT Head: normal to inspection Ears: external ears normal General nose exam: external nose normal Mouth: moist mucous membranes Eyes General: appearance normal, both eyes and all related structures Neck Neck: normal visual inspection Resp Effort & Inspection: normal respiratory effort and able to speak in complete sentences Auscultation: wheezes Cardio Rate: regular rate Heart Sounds: no murmurs GI Palpation: soft and nontender Skin General skin exam: no rashes or lesions noted Neuro General: patient alert and patient oriented x3 Extrem General: normal to inspection Psych Mental Status: mental status grossly normal Course Vital Signs Vital signs: Vital Signs Temperature 36.3 C L 09/20/23 16:42 Pulse 94 H 09/20/23 16:42 Respiratory Rate 15 09/20/23 16:42 Blood Pressure 117/46 L 09/20/23 16:42 Pulse Oximetry 93 09/20/23 16:42 Temperature 36.3 C L 09/20/23 16:42 Temperature Source Tympanic 09/20/23 16:42 Pulse 94 H 09/20/23 16:42 Respiratory Rate 15 09/20/23 16:42 Blood Pressure 117/46 L 09/20/23 16:42 Blood Pressure Position Sitting 09/20/23 16:42 Pulse Oximetry 93 09/20/23 16:42 Oxygen Delivery Method Room Air 09/20/23 16:42 Oxygen Flow Rate 0 09/20/23 16:42 Medical Decision Making 63-year-old male with a history of end-stage renal disease on dialysis Tuesday and Tuesday, restrictive lung disease and bronchiectasis on daily nasal cannula oxygen, who comes in with complaints of intermittent diarrhea for several months and had some yesterday which caused him to miss dialysis. He came in today just for general malaise. He denies any chest pain, fevers, difficulty breathing but has had a worsening productive cough. He says he has not had diarrhea today. He says he will be able to provide a stool sample as he has no diarrhea. He is alert and oriented x 4 on arrival speaking in full sentences in no distress, and appears well. He has wheezing at the apices bilaterally otherwise clear lungs, soft nontender abdomen. Unclear etiology for his intermittent diarrhea, given his not persistent and has had none today doubt C. difficile, if he is able to provide a stool sample we will send some fecal bacterial pathogen studies and if its watery send C. difficile. Will check a CBC and given he missed dialysis yesterday due to having diarrhea we will check a CMP to evaluate for electrolyte abnormalities, and obtain a chest x-ray to evaluate for pneumonia. He has no chest pain so do not feel workup for ACS indicated. Patient's potassium is 7.5, BUN over 100, patient still feels well and is in no distress. He is already given 1 DuoNeb. Will proceed with IV insulin, IV calcium, and Lokelma, will consult nephrology at [facility]. Spoke with the senior fellow's name is Peewee at [facility]. He reviewed the case and given the potassium is lower to 6.5 do not feel he needs emergent dialysis. He recommended Lokelma again tonight, and then go to dialysis in the morning. Discussed with the patient and demanded to have him stay in the ER overnight to be monitored but he declines this and wants to go home. He has decision-making capacity and understands that if his potassium does begin to increase again he can become more ill, potentially become disabled and if becomes severely elevated potentially . Still has no desire to stay in the ER and request discharge home. Will provide a dose of Lokelma for tonight. He goes to dialysis at 6:30 in the morning per patient. Given his cough and underlying lung disease will also cover him with doxycycline. Differential Diagnosis Differential Diagnosis: Food related illness, electrolyte abnormality, pneumonia Medical Records Medical records reviewed: Yes I reviewed the patient's medical records. Imaging Data Radiologic Study: Attestation: I personally reviewed and interpreted this imaging study as follows: Imaging: X-Ray Radiologist's impression: FINDINGS: 2 views: Sternotomy wires again noted as well as cardiomegaly, unchanged. No new right lung findings. Increased markings are seen throughout the left lung but exhibit minimal change from 04/04/2020. May be mild developing infiltrate in the left lower lobe retrocardiac region. No fractures. Thorax. IMPRESSION: Left lung findings as above which appear mostly chronic and unchanged from 04/04/2020. The opposite-right lung remains clear. Cardiomegaly. Sternotomy wires again noted. Lab Data Lab results reviewed: Yes I reviewed the patient's lab results. ECG Data Attestation: I personally reviewed and interpreted this ECG (s) as follows: Prior ECG tracings: available for review Interpretation: Sinus bradycardia, rate of 53, no STEMI, [place] 256 Quality:SDOH Health Related Social Needs: No Data to Display PFSH All Active Problems (Updated 09/20/23 @ 19:54 by Young Nvaa MD) Hyperkalemia (Acute) Ulcer of right foot with fat layer exposed (Acute) Chronic rhinitis (Acute) Respiratory failure with hypoxia (Acute) Bronchiectasis (Acute) Restrictive lung disease (Acute) Arthritis (Acute) Back, Hand Blindness, one eye (Acute) Arteriovenous fistula of left upper extremity (Acute) Dependence on hemodialysis (Acute) Finger pain (Acute) Anterior displaced fracture of sternal end of left clavicle, initial encounter for closed fracture (Acute) TBI (traumatic brain injury) (Acute) Lower back pain (Acute) Allergic rhinitis (Acute) Osteoporosis (Chronic) Tremor (Acute) Severe sleep apnea (Acute) Memory impairment (Acute) Hypoxia (Acute) Scarring of lung (Acute) Premature ventricular beat (Acute) Corns and callosities (Acute) Nail dystrophy (Acute) No-show for appointment (Acute) Secondary adhesive capsulitis of right shoulder (Acute) Trigger finger, right ring finger (Acute) Injection: 04/30/2019 Trigger finger, left middle finger (Acute) Colorectal polyps (Acute ~01/22/19) hyperplastic polyps Medical History Hx of pancreatitis Blind right eye Heart disease Depression Hyperlipidemia HTN (hypertension) Diabetic retinopathy Type 2 diabetes mellitus ESRD (end stage renal disease) AV fistula for hemodialysis CHF (congestive heart failure) Anxiety with depression Coronary arteriosclerosis Arteriovenous fistula lt arm Surgical History S/P eye surgery S/P CABG (coronary artery bypass graft) Open Carpal Tunnel release (~2001) b/l Arthroplasty of knee (~1973) per pt knee arthroscopy not a TKA! Family History Father Heart disease Diabetes Mother Diabetes Renal disease Brother , from cardiac disease in his 50's Heart disease Social History Smoking/Tobacco Use Status: Former Tobacco Use Quit Date: 05/02/97 Pack-years: 15 Smoking risk assessment performed?: Yes Alcohol Intake: former Drug use: Current Sobriety Substance use type: marijuana Details: marijuana in the 70's Household members: spouse and children Housing: house Number of Children: 1 current occupation: Disabled Current gender identity: male What is your relationship status?: Panel score (0-1 are the most socially isolated patients): 1 What type of physical activity do you participate in: other Details: under desk qubi Seatbelt use: always Do you feel safe at home: Yes Do you feel safe in your relationship?: Yes
[2023-09-20 17:03] LABS: BE (Venous) -6 mmol/L (-2-3); HCO3 (Venous) 21 mmol/L (23-28); O2 Sat (Venous) 67 %; TCO2 (Venous) 21 mmol/L (24-29); pCO2 (Venous) 54 mmHg (41-51); pH (Venous) 7.21 (7.31-7.41); pO2 (Venous) 42 mmHg
[2023-09-20 17:05] LABS: Abs Immature Grans 0.05 10^3/uL (0.0-0.06); Absolute Basophil Count 0.06 10^3/uL (0.0-0.2); Absolute Lymphocyte Count 0.94 10^3/uL (1.2-3.4); Absolute Monocyte Count 0.48 10^3/uL (0.1-0.8); Absolute Neutrophil Count 6.86 10^3/uL (1.2-6.7); Basophils % 0.7 %; Eosinophils % 3.5 %; HGB 10.9 g/dL (13.5-17.5); Immature Grans % 0.6 %; Lymphocytes % 10.8 %; MCH 30.7 pg (27.0-33.0); MCHC 32.1 % (32.0-36.0); MCV 96 fL (80-95); MPV 10.4 fL (8.0-11.0); Monocytes % 5.5 %; Neutrophils % 78.9 %; Platelet Count 102 10^3/uL (130-400); RBC 3.55 10^6/uL (4.36-5.78); RDW 14.6 % (11.8-14.1); RDW-SD 51.6 fL; WBC 8.69 10^3/uL (4.4-10.8)
[2023-09-20 17:18] LABS: PTT Activated 31.3 sec (23.6-32.8); Prothrombin Time 10.4 sec (9.1-11.1)
--- NOTE | 2023-09-20 17:28 | DI.RAD_ITS ---
Exam(s) XR CHEST 2V PA LATERAL EXAM: XR CHEST 2V PA LATERAL CLINICAL HISTORY: cough. TECHNIQUE: 2D digital imaging was performed. COMPARISON: CR XR CHEST 2V PA LATERAL from 04/04/2020 FINDINGS: 2 views: Sternotomy wires again noted as well as cardiomegaly, unchanged. No new right lung findings. Increased markings are seen throughout the left lung but exhibit minimal change from 04/04/2020. May be mild developing infiltrate in the left lower lobe retrocardiac region. No fractures. Thorax. IMPRESSION: Left lung findings as above which appear mostly chronic and unchanged from 04/04/2020. The opposite- right lung remains clear. Cardiomegaly. Sternotomy wires again noted. DATA REPOSITORY: RADIATION DOSE DELIVERED:
[2023-09-20 17:30] LABS: ALT 24 U/L (16-63); AST 14 U/L (15-37); Albumin 4.1 g/dL (3.4-5.0); Alkaline Phosphatase 90 U/L (46-116); Anion Gap 15.4 mmol/L (3-11); Bilirubin, Total 0.4 mg/dL (0.2-1.0); CO2 22.6 mmol/L (21.0-32.0); Calcium 8.2 mg/dL (8.5-10.1); Chloride 95 mmol/L (98-107); Estimated GFR 3.83 (mL/min/1.73m2); Glucose 258 mg/dL (74-106); Lipase 98 U/L (16-77); Magnesium 2.8 mg/dL (1.8-2.4); Sodium 133 mmol/L (136-145); TSH (W/Ref FT4) 4.55 uIU/mL (0.36-3.74); Total Protein 8.1 g/dL (6.4-8.2)
[2023-09-20 17:35] LABS: Procalcitonin 0.6 ng/mL
[2023-09-20] MEDS: Albuterol/Ipratropium 3 ML UPD VIAL UPD (17:39)
[2023-09-20 17:40] LABS: COVID-19 PCR Negative (Negative); Influenza A PCR Negative (Negative); Influenza B PCR Negative (Negative); RSV PCR Negative (Negative)
[2023-09-20] MEDS: methylPREDNISolone SUCC 125 MG VIAL IVP (17:40)
[2023-09-20 17:41] LABS: Source NASOPHARYNX
[2023-09-20 17:45] LABS: BUN 112 mg/dL (7-18); CREATININE 13.1 mg/dL (0.70-1.30)
[2023-09-20 17:46] LABS: Potassium 7.5 mmol/L (3.5-5.1)
[2023-09-20] MEDS: CALCIUM GLUCONATE in NaCl 1 GM/50 ML BAG IVPB (18:09)
[2023-09-20] MEDS: Insulin REGULAR-Human 100 UNITS/ML UNIT 10 UNITS IV (18:10)
[2023-09-20] MEDS: Dextrose 25%-Water 10 ML SYR 5 ML IVP (18:10)
[2023-09-20] MEDS: Sodium Zirconium Cyclosilicate 10 GM PKT PO ×2 (18:13→19:57)
[2023-09-20 19:30] LABS: Potassium 6.5 mmol/L (3.5-5.1)
[2023-09-20] MEDS: Doxycycline Hyclate 100 MG CAP PO (19:56)
== END 2023-09-20 20:32 | disposition home or self-care (01) ==
PROVIDERS: Emergency Provider Emergency Medicine; PCP Family Medicine
DX: R19.7 Diarrhea, unspecified (principal); R53.1 Weakness; R42 Dizziness and giddiness; E87.5 Hyperkalemia; N18.6 End stage renal disease; E11.59 Type 2 diabetes mellitus with other circulatory complications; Z99.2 Dependence on renal dialysis; E11.22 Type 2 diabetes mellitus with diabetic chronic kidney disease
CPT/HCPCS: 36415; 36416; 80053; 82805; 82962; 83690; 84145; 87637; 93005; 94640; 96365; 96375; 99284; 71046; 83735; 84132; 84439; 84443; 85025; 85610; 85730; 93010; 99283; J0613; J1815; J2919; J7620

== ENCOUNTER → 2023-11-17 09:30 | Outpatient (BNVA) | payer MEDICARE, MEDICAID, SELFPAY | PROVIDERS: PCP Student in an Organized Health Care Education/Training Program; Referring Provider Student in an Organized Health Care Education/Training Program; Visit Provider Podiatrist | DX: L97.512 Non-pressure chronic ulcer of other part of right foot with fat layer exposed (principal); E11.621 Type 2 diabetes mellitus with foot ulcer; H54.40 Blindness, one eye, unspecified eye; Z99.2 Dependence on renal dialysis; Z99.81 Dependence on supplemental oxygen; B35.3 Tinea pedis; L60.3 Nail dystrophy; B35.1 Tinea unguium | CPT/HCPCS: 11042 ==

== ENCOUNTER → 2023-12-12 13:09 | Outpatient (BNVA) | payer MEDICARE, MEDICAID, SELFPAY | PROVIDERS: PCP Student in an Organized Health Care Education/Training Program; Referring Provider Student in an Organized Health Care Education/Training Program; Visit Provider Podiatrist | DX: L97.512 Non-pressure chronic ulcer of other part of right foot with fat layer exposed (principal); E11.621 Type 2 diabetes mellitus with foot ulcer; H54.40 Blindness, one eye, unspecified eye; Z99.2 Dependence on renal dialysis; M79.671 Pain in right foot; Z99.81 Dependence on supplemental oxygen; B35.1 Tinea unguium | CPT/HCPCS: 11042; 11721 ==

== ENCOUNTER 2023-12-28 16:23 | Emergency (ER) | payer MEDICARE, MEDICAID, SELFPAY ==
[2023-12-28] VITALS (52 sets, daily range): BP systolic 135–157; BP diastolic 59–64; PULSE 72–92; RESP 12–26; TEMP 36.1; O2SAT 98–100
--- NOTE | 2023-12-28 16:30 | DI.RAD_ITS ---
Exam(s) XR FOOT RT COMPLETE EXAM: XR FOOT RT COMPLETE CLINICAL HISTORY: Right 5th toe infection. TECHNIQUE: 2D digital imaging was performed. Three views. COMPARISON: No exams were available for comparison FINDINGS: BONES: No acute fracture is present. No bony destructive lesion is seen. The exam of is limited by o verlap of the toes, particularly of the 5th toe. There is a cyst in the medial cuneiform. Heel spur s. JOINTS: No dislocation present. Degenerative changes tarsal metatarsal and intertarsal joints. SOFT TISSUE: Soft tissue swelling seen around the 5th toe as well as 1st toe. Vascular calcification s. There is some overlying gauze. IMPRESSION: Limited visualization of the distal phalanx of the 5th toe. No definite evidence of osteomyelitis at the 5th toe. Consider dedicated 5th toe examination. DATA REPOSITORY: RADIATION DOSE DELIVERED:
--- NOTE | 2023-12-28 16:32 | ED.GENADUL_ITS ---
Discharge Plan Disposition Patient Disposition: Home Condition: Serious Discharge Details Clinical Impression: Ulcer of right foot with fat layer exposed, Cellulitis and abscess of foot Primary Care Provider: Jonatan Ambrosio ED Provider: Guillermina Chew Home Meds and New Rx's Prescriptions: New clindamycin HCl 150 mg capsule 450 mg PO TID 10 Days Qty: 90 0RF Rx Instructions: Take 3 capsules by mouth 3 times daily for the next 10 days with yogurt or a probiotic. clindamycin HCl 150 mg capsule 450 mg PO TID 10 Days Qty: 90 0RF No Action sevelamer carbonate [Renvela] 800 mg tablet 800 mg PO TID gabapentin 300 mg capsule 300 mg PO TID albuterol sulfate [Ventolin HFA] 90 mcg/actuation HFA aerosol inhaler 2 puff inhalation Q6H PRN (Reason: shortness of breath or wheezing) Qty: 8.5 4RF fluticasone furoate-vilanterol [Breo Ellipta] 100-25 mcg/dose blister with device 1 inh inhalation DAILY Qty: 60 3RF ketoconazole 2 % cream 1 applic topical DAILY Qty: 120 6RF Rx Instructions: Apply to toenails once daily fluticasone propionate [Flonase Allergy Relief] 50 mcg/actuation spray,suspension 1 spray intranasal BID Rx Instructions: administer into each nostril insulin glargine [Basaglar KwikPen U-100 Insulin] 100 unit/mL (3 mL) insulin pen 60 unit subcut HS (DME) Oxygen Tank See Rx Instructions .Route Rx Instructions: continuous at 2 L atorvastatin [Lipitor] 40 mg tablet 40 mg PO HS Patient Comments: TAKE ONE TABLET BY MOUTH EVERY EVENING bumetanide 2 mg tablet 2 mg PO BID (DME) lancets 1 EACH misc 1 ea Miscellaneous QID Qty: 400 Rx Instructions: DX: 250.0 IDDM (DME) BD Regular Bevel [place] 1 EACH needle 1 ea Intrauterine AC Qty: 100 Rx Instructions: insulin pen needles (DME) pen needle, diabetic 1 EACH needle 1 ea Sub-Q TID Qty: 100 Rx Instructions: 31G X 1 DX: 250 (DME) Blood Glucose Test 1 EACH strip 1 ea Miscellaneous QID Qty: 400 Rx Instructions: DX:250.0 IDDM One touch ultra sertraline 50 mg tablet 50 mg PO DAILY insulin aspart U-100 [Novolog FlexPen U-100 Insulin] 100 unit/mL (3 mL) insulin pen 16 unit subcut DIRECTED Rx Instructions: 16-20 U hs amlodipine 10 mg tablet 10 mg PO DAILY diclofenac sodium [Aleve (diclofenac)] 1 % gel 2 g topical QID Rx Instructions: apply to single elbow, wrist or hand; for hand includes palm/fingers/back of hand (DME) EasiVent Holding Chamber Spacer See Rx Instructions .Route Rx Instructions: As directed tamsulosin 0.4 mg capsule 0.4 mg PO DAILY albuterol sulfate [Ventolin HFA] 90 mcg/actuation HFA aerosol inhaler 2 puff inhalation Q6H PRN aspirin 325 mg tablet 180 mg PO DAILY Discharge Instructions Instructions: Diabetic Foot Ulcer (DC), Diabetes and infections, Cellulitis (Skin Infection), Adult ED Additional Instructions: Please take the antibiotic as directed with yogurt or probiotic daily. Please keep your appointment with podiatry on Tuesday as previously scheduled. If you can get in sooner with her that would be ideal. Follow up with podiatry/primary care provider in 3-5 days. Return to ED sooner if any worsening redness, fever or chills or concerns. Referrals: Jonatan Ambrosio [Primary Care Provider] - 5 days Nell [facility] - 3 days Discharge Data Discharge Date/Time-TO BE ENTERED AT DEPARTURE: 12/28/23 21:25 HPI General Mode of arrival: EMS . Date/Time Provider Initiated Documentation: 12/28/23 16:30 . Limitations to Documentation: no limitations . Information obtained by: patient, EMS, RN notes reviewed and old records reviewed . HPI Narrative: 63 year old male presents to the ER via EMS with a chief complaint of right foot and toe redness and pain. Patient notes that he began noticing his foot hurting yesterday. Does have home health that comes and does a dressing on his diabetic foot ulcer on that same foot which they addressed today. He did is a dialysis patient did have dialysis today. He denies any fever chills or bodyaches. Other past medical history include depression hyperlipidemia hypertension, type 2 diabetes, end-stage renal disease, CHF, coronary artery sclerosis. He does have a dialysis fistula. He is status post CABG bypass graft. Related Data Home Medications ?Medication ?Instructions ?Recorded ?Confirmed lancets 28 gauge #400 ea 08/18/12 12/28/23 needle (disp) 21 G 21 gauge x 1 ##100 08/31/12 12/28/2305/03 (BD Regular Bevel [place]) pen needle, diabetic 31 gauge x ##100 11/15/13 12/28/23 1 blood sugar diagnostic (Blood #400 strips 12/05/13 12/28/23 Glucose Test strips) sevelamer carbonate 800 mg tablet 800 mg PO TID 04/27/19 12/28/23 (Renvela) sertraline 50 mg tablet 50 mg PO DAILY 03/11/20 12/28/23 fluticasone propionate 50 1 spray intranasal BID 11/11/20 12/28/23 mcg/actuation nasal spray,suspension (Flonase Allergy Relief) gabapentin 300 mg capsule 300 mg PO TID 03/17/22 12/28/23 Oxygen 05/14/22 12/28/23 albuterol sulfate 90 mcg/actuation 2 puff inhalation Q6H PRN 06/11/22 12/28/23 aerosol inhaler (Ventolin HFA) shortness of breath or wheezing #8.5 grams fluticasone furoate 100 1 inh inhalation DAILY #60 ea 06/11/22 12/28/23 mcg-vilanterol 25 mcg/dose inhalation powder (Breo Ellipta) insulin aspart U-100 100 unit/mL 16 unit subcut DIRECTED 09/01/22 12/28/23 (3 mL) subcutaneous pen (Novolog FlexPen U-100 Insulin aspart) albuterol sulfate 90 mcg/actuation 2 puff inhalation Q6H PRN 05/03/23 12/28/23 aerosol inhaler (Ventolin HFA) amlodipine 10 mg tablet 10 mg PO DAILY 05/03/23 12/28/23 diclofenac sodium 1 % topical gel 2 g topical QID 05/03/23 12/28/23 (Aleve (diclofenac)) inhalational spacing device 05/03/23 12/28/23 (EasiVent Holding Chamber) tamsulosin 0.4 mg capsule 0.4 mg PO DAILY 05/03/23 12/28/23 aspirin 325 mg tablet 180 mg PO DAILY 11/17/23 12/28/23 atorvastatin 40 mg tablet (Lipitor) 40 mg PO HS 11/17/23 12/28/23 bumetanide 2 mg tablet 2 mg PO BID 11/17/23 12/28/23 insulin glargine 100 unit/mL (3 60 unit subcut HS 12/12/23 12/28/23 mL) subcutaneous pen (Basaglar KwikPen U-100 Insulin) ketoconazole 2 % topical cream 1 applic topical DAILY #120 grams 12/12/23 12/28/23 clindamycin HCl 150 mg capsule 450 mg (3 x 150 mg) PO TID 10 days 12/28/23 #90 caps clindamycin HCl 150 mg capsule 450 mg (3 x 150 mg) PO TID 12/28/23 Cellulitis 10 days #90 caps Previous Rx's ?Medication ?Instructions ?Recorded albuterol sulfate 90 mcg/actuation 2 puff inhalation Q6H PRN 06/11/22 aerosol inhaler (Ventolin HFA) shortness of breath or wheezing #8.5 grams fluticasone furoate 100 1 inh inhalation DAILY #60 ea 06/11/22 mcg-vilanterol 25 mcg/dose inhalation powder (Breo Ellipta) ketoconazole 2 % topical cream 1 applic topical DAILY #120 grams 12/12/23 clindamycin HCl 150 mg capsule 450 mg (3 x 150 mg) PO TID 10 days 12/28/23 #90 caps clindamycin HCl 150 mg capsule 450 mg (3 x 150 mg) PO TID 12/28/23 Cellulitis 10 days #90 caps Allergies Allergy/AdvReac Type Severity Reaction Status Date / Time ciprofloxacin Allergy Intermediate rash from Verified 12/28/23 16:24 IV General Stated Complaint: Cellulitis ABBIE: 3 Review of Systems All systems reviewed & are unremarkable except as noted in HPI and below Musculoskeletal Musculoskeletal: Reports as per HPI Integumentary/Breasts Skin/Breast: Reports erythema, Reports skin swelling, Reports skin ulcer and Reports sores Exam Narrative Exam Narrative: Constitutional: Alert and oriented x3. Appears stated age. Normal body habitus. Head: Normocephalic, no trauma. Eyes: Pupils PERRL, Red reflex noted, EOM's intact. Eyelids symmetrical without lesions, discharge, or swelling. ENT: Bilateral TM's WNL, External ear normal to inspection, no mastoid TTP, swelling, or erythema, Nasal turbinates WNL, no nasal discharge. Normal dentition, Posterior pharynx WNL, no exudate. Chest: RRR, Normal S1, S2, distal pulses intact. Resp: Lungs clear to auscultation bilaterally, no wheezes, rales, or rhonchi. Abdomen: Soft, non-distended, Normoactive bowel sounds all 4 quads. Musculoskeletal: Normal gait, Moves all 4 extremities without difficulty. Skin: Right foot, eschar type tissue black toe to the fifth digit, erythema noted to the dorsum of right foot extends up foot which is marked. Does have another ulcer which she has been existing to the plantar aspect of his foot. Capillary refill less than 2 sec. Neurologic: Cranial nerves II-XII intact. Alert and oriented x 3. Motor: No deficits noted. Sensory: Intact bilaterally all 4 extremities. Hematologic/Lymphatic: No ecchymosis, no lymphadenopathy. Extrem Ankle/foot/toe images: 2 1. Erythema 2. Black toe 3. Ulcer, previously there Course Vital Signs Vital signs: Vital Signs Temperature 36.1 C L 12/28/23 16:28 Pulse 92 H 12/28/23 16:28 Respiratory Rate 15 12/28/23 16:28 Blood Pressure 141/59 H 12/28/23 16:28 Pulse Oximetry 100 12/28/23 16:28 Temperature 36.1 C L 12/28/23 16:28 Temperature Source Temporal Artery Scan 12/28/23 16:28 Pulse 92 H 12/28/23 16:28 Respiratory Rate 15 12/28/23 16:28 Respiratory Effort Normal, Non-Labored 12/28/23 16:30 Blood Pressure 141/59 H 12/28/23 16:28 Blood Pressure Position Sitting 12/28/23 16:28 Pulse Oximetry 100 12/28/23 16:28 Oxygen Delivery Method Nasal Cannula 12/28/23 16:28 Oxygen Flow Rate 2 12/28/23 16:28 Pain Level 6 12/28/23 16:28 Lab/Test Results Lab/Test Results: 12/28/23 16:30 Blood Blood Culture - Pending 12/28/23 16:30 Blood Blood Culture - Pending Medical Decision Making 63 year old male presents to the ER via EMS with a chief complaint of right foot and toe redness and pain. Patient notes that he began noticing his foot hurting yesterday. Does have home health that comes and does a dressing on his diabetic foot ulcer on that same foot which they addressed today. He did is a dialysis patient did have dialysis today. He denies any fever chills or bodyaches. Other past medical history include depression hyperlipidemia hypertension, type 2 diabetes, end-stage renal disease, CHF, coronary artery sclerosis. He does have a dialysis fistula. He is status post CABG bypass graft. Cellulitis workup ordered including CBC CMP lactate blood cultures x 2 ESR and CRP. No white blood cell count hemoglobin 11.2 hematocrit 35.8, platelets 102, ESR 77, lactate 1.7 BUN 28 creatinine 5.8 GFR is 10.2 this is at patient's baseline he does have end-stage renal disease, glucose 251, magnesium 2.2 CRP is 11.22. Vancomycin 1500mg IVPB ordered and Zosyn 3.375MG IVPB. X-ray of foot shows no obvious osteomyelitis, CT imaging of foot without contrast ordered. 181: Spoke with radiologist Dr. Cuevas regarding CT of extremity who reports some osteomyelitis at the distal tip of the 5th digit, no abscess. 1827: [facility] called they do not have capacity at this time. They will try vascular consult. 185: Spoke with Dr. Ward with [facility] vascular for consult, she recommends admission for antibiotics and eventual amputation as needed. Will page hospitalist. 2012: Spoke with Dr. Minaya with podiatry at [facility] regarding patient case and details, however, they do not do dialysis at [facility]. He states that on patient's labs alone that patient is not a candidate for emergent surgery at this time. He would need vascular studies prior to having surgery. I did discuss this with patient he is a patient of Dr. Blas with podiatry here and [facility] he has an appointment with her on Tuesday. He is comfortable with discharge home on antibiotics with follow-up for dialysis on Tuesday as previously scheduled and podiatry on Tuesday earlier. I did encourage him to call in the morning to let her know that he was here in the ER. I will also place him on the care management list. Also informed by Ortho at [facility] that patient is safe for discharge with outpatient follow up and no emergent need for surgery at this time. Patient discharged home in the care of [facility]. This text was generated using [employer] system, please disregard any oddities of phrase or misspellings. Medical Records Medical records reviewed: Yes I reviewed the patient's medical records. Imaging Data Radiologic Study: Imaging: X-Ray Radiologist's impression: EXAM: XR FOOT RT COMPLETE CLINICAL HISTORY: Right 5th toe infection. TECHNIQUE: 2D digital imaging was performed. Three views. COMPARISON: No exams were available for comparison FINDINGS: BONES: No acute fracture is present. No bony destructive lesion is seen. The exam of is limited by overlap of the toes, particularly of the 5th toe. There is a cyst in the medial cuneiform. Heel spurs. JOINTS: No dislocation present. Degenerative changes tarsal metatarsal and intertarsal joints. SOFT TISSUE: Soft tissue swelling seen around the 5th toe as well as 1st toe. Vascular calcifications. There is some overlying gauze. IMPRESSION: Limited visualization of the distal phalanx of the 5th toe. No definite evidence of osteomyelitis at the 5th toe. Consider dedicated 5th toe examination. Radiologic Study #2: Imaging: CT Scan Radiologist's impression: COMPARISON: CR XR FOOT RT COMPLETE from 12/28/2023 FINDINGS: SOFT TISSUES: There is an ulcer on the undersurface/plantar aspect of the foot the level of the head of the great toe metatarsal. There is subjacent soft tissue density and there is some edema throughout the foot. There is no gas in the soft tissues nor in the tendon sheaths of the foot and ankle region. Vascular calcifications noted in the foot. OSSEOUS: There is no CT evidence of osteomyelitis of the great toe metatarsal head and subjacent 2 sesamoid bones. There appears to be a tiny ulcer in the distal tip of the 5th toe with subjacent induration and significant loss of bone substance of the distal phalanx of the 5th toe suspicious for osteomyelitis. There are significant degenerative changes at the tarsometatarsal joints with degenerative subarticular cysts, this most prominent in the 2nd and 3rd tarsometatarsal joints but also involving the medial cuneiform. Fourth and 5th tarsometatarsal joints appear intact. Milder degenerative changes are also noted in the 3rd tarsometatarsal joint. There are degenerative subarticular cyst in the distal navicular and adjacent medial cuneiform. There is no evidence of midfoot collapse. No pes planus. Hindfoot articulations appear intact. Hindfoot articulations appear unremarkable IMPRESSION: Tiny skin ulcer distal aspect of the 5th toe with findings consistent with osteomyelitis in the distal phalanx of the 5th toe. There is an ulcer also noted on the plantar surface at the level of the great toe metatarsal head but without evidence of osteomyelitis at this level. There are advanced midfoot degenerative changes as described above without evidence of midfoot collapse at this time. Soft tissue induration but no obvious discernible abscess on this noninfused study and there is no gas within the soft tissues. Vascular calcification noted in the foot. Findings called by myself to the ER provider 12/28/2023 at 6:14 p.m. Lab Data Lab results reviewed: Yes I reviewed the patient's lab results. Labs: 12/28/23 16:45 Blood Blood Culture - Pending 12/28/23 16:30 Blood Blood Culture - Pending Laboratory Tests Range/Units 12/28/23 16:45 WBC (4.4-10.8) 10^3/uL 7.96 RBC (4.36-5.78) 10^6/uL 3.56 L Hgb (13.5-17.5) g/dL 11.2 L Hct (40.0-50.0) % 35.8 L MCV (80-95) fL 101 H MCH (27.0-33.0) pg 31.5 MCHC (32.0-36.0) % 31.3 L RDW (11.8-14.1) % 17.7 H Plt Count (130-400) 10^3/uL 102 L MPV (8.0-11.0) fL 10.4 Immature Gran % % 0.4 Neutrophils % % 75.3 Lymphocytes % % 8.7 Monocytes % % 9.0 Eosinophils % % 6.0 Basophils % % 0.6 Nucleated RBC % (0.0-0.3) % 0.0 Absolute Neutrophils (1.2-6.7) 10^3/uL 5.99 Absolute Lymphocytes (1.2-3.4) 10^3/uL 0.69 L Absolute Monocytes (0.1-0.8) 10^3/uL 0.72 Absolute Eosinophils (0.0-0.7) 10^3/uL 0.48 Absolute Basophils (0.0-0.2) 10^3/uL 0.05 ESR (0-20) mm/hr 77 H PT (9.1-11.1) sec 10.7 INR (0.9-1.1) 1.1 VBG Lactate (0.6-1.4) mmol/L 1.7 H Sodium (136-145) mmol/L 137 Potassium (3.5-5.1) mmol/L 4.3 Chloride (98-107) mmol/L 97 L Carbon Dioxide (21.0-32.0) mmol/L 32.1 H Anion Gap (3-11) mmol/L 7.9 BUN (7-18) mg/dL 28 H Creatinine (0.70-1.30) mg/dL 5.8 H* Est GFR (CKD-EPI 2020) (mL/min/1.73m2) 10.20 Glucose (74-106) mg/dL 251 H Calcium (8.5-10.1) mg/dL 9.2 Magnesium (1.8-2.4) mg/dL 2.2 Total Bilirubin (0.2-1.0) mg/dL 0.53 AST (15-37) U/L 13 L ALT (16-63) U/L 12 L Alkaline Phosphatase (46-116) U/L 87 C-Reactive Protein (<or=0.5) mg/dL 11.22 H Total Protein (6.4-8.2) g/dL 8.3 H Albumin (3.4-5.0) g/dL 3.7 Quality:SDOH Health Related Social Needs: 2 No Data to Display PFSH All Active Problems (Updated 12/30/23 @ 15:57 by Guillermina Chew NP) Cellulitis and abscess of foot (Acute) Pain in right foot (Acute) Ulcer of right foot with fat layer exposed (Acute) Chronic rhinitis (Acute) Respiratory failure with hypoxia (Acute) Bronchiectasis (Acute) Restrictive lung disease (Acute) Arthritis (Acute) Back, Hand Blindness, one eye (Acute) Arteriovenous fistula of left upper extremity (Acute) Dependence on hemodialysis (Acute) Finger pain (Acute) Anterior displaced fracture of sternal end of left clavicle, initial encounter for closed fracture (Acute) TBI (traumatic brain injury) (Acute) Lower back pain (Acute) Allergic rhinitis (Acute) Osteoporosis (Chronic) Tremor (Acute) Severe sleep apnea (Acute) Memory impairment (Acute) Hypoxia (Acute) Scarring of lung (Acute) Premature ventricular beat (Acute) Corns and callosities (Acute) Nail dystrophy (Acute) No-show for appointment (Acute) Secondary adhesive capsulitis of right shoulder (Acute) Trigger finger, right ring finger (Acute) Injection: 04/30/2019 Trigger finger, left middle finger (Acute) Colorectal polyps (Acute ~01/22/19) hyperplastic polyps Medical History Hx of pancreatitis Blind right eye Heart disease Depression Hyperlipidemia HTN (hypertension) Diabetic retinopathy Type 2 diabetes mellitus ESRD (end stage renal disease) AV fistula for hemodialysis CHF (congestive heart failure) Anxiety with depression Coronary arteriosclerosis Arteriovenous fistula lt arm Surgical History S/P eye surgery S/P CABG (coronary artery bypass graft) Open Carpal Tunnel release (~2001) b/l Arthroplasty of knee (~1973) per pt knee arthroscopy not a TKA! Family History Father Heart disease Diabetes Mother Diabetes Renal disease Brother , from cardiac disease in his 50's Heart disease Social History Smoking/Tobacco Use Status: Former Tobacco Use Quit Date: 05/02/97 Pack-years: 15 Smoking risk assessment performed?: Yes Alcohol Intake: former Drug use: Current Sobriety Substance use type: marijuana Details: marijuana in the 70's Household members: spouse and children Housing: house Number of Children: 1 current occupation: Disabled Current gender identity: male What is your relationship status?: Panel score (0-1 are the most socially isolated patients): 1 What type of physical activity do you participate in: other Details: under desk qubi Seatbelt use: always Do you feel safe at home: Yes Do you feel safe in your relationship?: Yes
--- OUTSIDE RECORDS SUMMARY | 2023-12-28 16:33 | XMS_ITS ---
Author Name Too Morgan Address [address] [place] [id number] Phone [phone] Organization [facility] e, NA DOCUMENT DISCLAIMER Multiple document versions may exist, please be sure you review the latest version. The information in the [facility] Progress Note Document represents a providers documented clinical note containing certain health and medical information. It may not contain the complete medical history for the patient and should be independently verified. The represented time in the document is Eastern Time PROVIDER ROUNDING NOTE BASIC Patient:?SINDI?FERNANDA,?1960,?62y,?M Dialysis?Location:?[facility] Attending?Manager Process Improvement:?Too?Eddie Service?Date:?11/08/2022 Service?Provider:?Too?Eddie,? I?met?face?to?face?with?the?patient?today. OVERVIEW The?patient?presented?with?ESRD?on?dialysis Primary?cause?of?renal?failure:?Type?2?diabetes?mellitus&#16 0;with?diabetic?chronic?kidney?disease Comments:?11/08?increased?EDW/bp?now?better?but?still?crampin g?so?will?increase?to?98.5 Medications?and?labs?reviewed. DIALYSIS?PRESCRIPTION ??IHD?3x?Week?Start?date:?11/03/22 ??Dialyzer:?180NRe?Optiflux ??BFR:?450 ??DFR:?Manual?500 ??Potassium:?2.0 ??Sodium:?137 ??EDW:?97.8 ??Duration:?4:00 ??Calcium:?2.5 ??Bicarb:?35 ??Rx?updated?on:?11/03/2022 TREATMENT?ASSESSMENT BP?Sit?Pre ??11/05/2022:?166/86 ??11/03/2022:?178/95 ??11/01/2022:?130/76 BP?Stand?Post ??11/05/2022:?127/44 ??11/03/2022:?158/69 ??11/01/2022:?144/68 BP?Sit?Post ??11/05/2022:?132/70 ??11/03/2022:?132/71 ??11/01/2022:?135/59 Tx?Duration ??11/05/2022:?3:55 ??11/03/2022:?3:51 ??11/01/2022:?4:02 Missed?Treatments 0?-?last?30?days 0?-?last?60?days FLUID?ASSESSMENT EDW?(kg) ??11/05/2022:?97.8 ??11/03/2022:?97.5 ??11/01/2022:?97.5 Weight?Pre?(kg) ??11/05/2022:?100.7 ??11/03/2022:?100.7 ??11/01/2022:?102.0 Weight?Post?(kg) ??11/05/2022:?97.6 ??11/03/2022:?98.2 ??11/01/2022:?97.8 PWV?(kg) ??11/05/2022:?-0.2 ??11/03/2022:?0.7 ??11/01/2022:?0.3 UF?Rate?(mL/kg/hr) ??11/05/2022:?8.1 ??11/03/2022:?6.6 ??11/01/2022:?10.6 ADEQUACY?ASSESSMENT spKt/V,?URR ??11/03/2022:?1.47,?72.0 ??10/04/2022:?1.62,?74.0 ??09/22/2022:?1.27,?67.0 ACCESS?ASSESSMENT ??Access?Type:?AVFistula ??Access?SubType:?Standard ??Access?Status:?Active?(In?Use)?-?09/14/2017 ??Access?Location:?Left?Forearm ??Created:?04/13/2017 Flow ??09/02/2022:?903 ??08/05/2022:?950 ??07/01/2022:?1348 ANEMIA?ASSESSMENT HGB,?TSAT ??11/03/2022:?11.3,?38.0 ??10/25/2022:?10.5,?- ??10/18/2022:?10.8,?- ?? Ferritin ??11/03/2022:?1068.0 ??10/04/2022:?1211.0 ??09/22/2022:?1113.0 Mircera,?IVP?(mcg) ??10/15/2022:?75 ??09/18/2022:?30 ??09/04/2022:?30 Iron?Sucrose?(Venofer)?(mg) ??10/01/2022:?50 ??09/24/2022:?50 ??09/14/2022:?50 BMM?ASSESSMENT Phosphorus,?Calcium ??11/03/2022:?6.5,?8.4 ??10/25/2022:?-,?8.5 ??10/18/2022:?-,?8.3 ?? PTH,?Intact ??11/03/2022:?413.0 ??10/04/2022:?524.0 ??09/22/2022:?528.0 Vitamin?D?(Calcitriol)?Oral?(mcg) ??11/05/2022:?0.50 ??11/03/2022:?0.50 ??11/01/2022:?0.50 NUTRITION?ASSESSMENT Albumin,?Potassium ??11/03/2022:?4.4,?4.8 ??10/04/2022:?3.9,?4.2 ??09/22/2022:?4.2,?4.5 ?? eNPCR ??11/03/2022:?0.98 ??10/04/2022:?0.94 ??08/31/2022:?0.9 Patient?data?updated?11/08/2022?at?9:32?AM Signed?By:?Eddie,?Too,???on?11/08/2022?9:34:15?AM END OF DOCUMENT
--- OUTSIDE RECORDS SUMMARY | 2023-12-28 16:33 | XMS_ITS ---
Author Name Too Morgan Address [address] [place] [id number] Phone [phone] Organization [facility] e, NA DOCUMENT DISCLAIMER Multiple document versions may exist, please be sure you review the latest version. The information in the [facility] Progress Note Document represents a providers documented clinical note containing certain health and medical information. It may not contain the complete medical history for the patient and should be independently verified. The represented time in the document is Eastern Time PROVIDER ROUNDING NOTE BASIC Patient:?SINDI?FERNANDA,?1960,?62y,?M Dialysis?Location:?[facility] Attending?Demand Equipment Repairer:?Too?Eddie Service?Date:?12/01/2022 Service?Provider:?Too?Eddie,? I?met?face?to?face?with?the?patient?today. OVERVIEW The?patient?presented?with?ESRD?on?dialysis Primary?cause?of?renal?failure:?Type?2?diabetes?mellitus&#16 0;with?diabetic?chronic?kidney?disease Comments:?8/2.?Needs?new?access?flow?to?decide?if?he&#1 60;needs?another?fistulogram DIALYSIS?PRESCRIPTION ??IHD?3x?Week?Start?date:?11/10/22 ??Dialyzer:?180NRe?Optiflux ??BFR:?450 ??DFR:?Manual?500 ??Potassium:?2.0 ??Sodium:?137 ??EDW:?98 ??Duration:?4:00 ??Calcium:?2.5 ??Bicarb:?35 ??Rx?updated?on:?11/08/2022 TREATMENT?ASSESSMENT BP?Stand?Pre ??11/29/2022:?152/77 ??11/26/2022:?197/99 BP?Sit?Pre ??11/29/2022:?196/102 ??11/26/2022:?162/63 ??11/24/2022:?135/71 BP?Stand?Post ??11/29/2022:?154/78 ??11/26/2022:?167/83 ??11/24/2022:?107/40 BP?Sit?Post ??11/29/2022:?148/88 ??11/26/2022:?168/75 ??11/24/2022:?142/61 Tx?Duration ??11/29/2022:?4:04 ??11/26/2022:?3:41 ??11/24/2022:?3:46 Missed?Treatments 0?-?last?30?days 0?-?last?60?days FLUID?ASSESSMENT EDW?(kg) ??11/29/2022:?98.0 ??11/26/2022:?98.0 ??11/24/2022:?98.0 Weight?Pre?(kg) ??11/29/2022:?102.7 ??11/26/2022:?99.7 ??11/24/2022:?100.2 Weight?Post?(kg) ??11/29/2022:?98.2 ??11/26/2022:?97.8 ??11/24/2022:?98.7 PWV?(kg) ??11/29/2022:?0.2 ??11/26/2022:?-0.2 ??11/24/2022:?0.7 UF?Rate?(mL/kg/hr) ??11/29/2022:?11.3 ??11/26/2022:?5.3 ??11/24/2022:?4 ADEQUACY?ASSESSMENT spKt/V,?URR ??11/03/2022:?1.47,?72.0 ??10/04/2022:?1.62,?74.0 ??09/22/2022:?1.27,?67.0 ACCESS?ASSESSMENT ??Access?Type:?AVFistula ??Access?SubType:?Standard ??Access?Status:?Active?(In?Use)?-?09/14/2017 ??Access?Location:?Left?Forearm ??Created:?04/13/2017 Flow ??09/02/2022:?903 ??08/05/2022:?950 ??07/01/2022:?1348 ANEMIA?ASSESSMENT HGB ??11/22/2022:?10.4 ??11/15/2022:?10.2 ??11/08/2022:?10.7 ?? Ferritin ??11/03/2022:?1068.0 ??10/04/2022:?1211.0 ??09/22/2022:?1113.0 Mircera,?IVP?(mcg) ??11/12/2022:?75 ??10/15/2022:?75 ??09/18/2022:?30 Iron?Sucrose?(Venofer)?(mg) ??11/26/2022:?50 ??11/19/2022:?50 ??11/12/2022:?50 BMM?ASSESSMENT Calcium ??11/22/2022:?8.3 ??11/15/2022:?8.5 ??11/08/2022:?8.5 ?? PTH,?Intact ??11/03/2022:?413.0 ??10/04/2022:?524.0 ??09/22/2022:?528.0 Vitamin?D?(Calcitriol)?Oral?(mcg) ??11/29/2022:?0.50 ??11/26/2022:?0.50 ??11/24/2022:?0.50 NUTRITION?ASSESSMENT Albumin,?Potassium ??11/03/2022:?4.4,?4.8 ??10/04/2022:?3.9,?4.2 ??09/22/2022:?4.2,?4.5 ?? eNPCR ??11/03/2022:?0.98 ??10/04/2022:?0.94 ??08/31/2022:?0.9 Patient?data?updated?12/01/2022?at?9:22?AM Signed?By:?Eddie,?Too,???on?12/01/2022?9:25:03?AM END OF DOCUMENT
--- OUTSIDE RECORDS SUMMARY | 2023-12-28 16:33 | XMS_ITS ---
Author Name Simi Mcfadden Address [address] [place] [address] Phone [phone] Organization [facility] e, NA DOCUMENT DISCLAIMER The information in the [facility] Provider Note Document represents a providersdocumented clinical note containing certain health and medical information. It may not contain the complete medical history for the patient and should be independently verified. The represented time in the document is Eastern Time PROVIDER ROUNDING NOTE BASIC THIS NOTE HAS BEEN VOIDED IN THE SOURCE SYSTEM. Voided?By:?Simi?Lesa,?UNEMPLOYMENT EXAMINER Void?Date:?04/16/2022?1:22:48?PM Void?Reason:?edit Revised?By:?Simi?Lesa,?UNEMPLOYMENT EXAMINER Revised?Date:?04/16/2022?1:22:40?PM Revised?Reason:?edit Patient:?SINDI?FERNANDA,?1960,?62y,?M Dialysis?Location:?[facility] Attending?Bag Making Machine Tender:?Cynthia?Buzz Service?Date:?04/16/2022 Service?Provider:?Simi?Lesa,?UNEMPLOYMENT EXAMINER I?met?face?to?face?with?the?patient?today. OVERVIEW The?patient?presented?with?ESRD?on?dialysis Primary?cause?of?renal?failure:?Type?2?diabetes?mellitus&#16 0;with?diabetic?chronic?kidney?disease Comments:?04/08/22?-?Increase?calcitriol?to?0.5mcg?for?low&#1 60;Ca?and?elevated?PTH.?Stable?treatment. 04/01/22?-?Stable?treatment,?no?complaints.??Feeling?well on?off?days. 03/16/22?-?Ending?treatment?below?EDW?with?stable?BP.?& #160;Will?adjust?EDW.??Stable?treatment?today?with?no?complaints. 03/09?Overall?stable/no?acute?issues Medications?and?labs?reviewed. DIALYSIS?PRESCRIPTION ??IHD?3x?Week?Start?date:?04/15/22 ??Dialyzer:?180NRe?Optiflux ??BFR:?450 ??DFR:?Manual?500 ??Potassium:?2.0 ??Sodium:?137 ??EDW:?100.3 ??Duration:?4:00 ??Calcium:?2.5 ??Bicarb:?35 ??Rx?updated?on:?04/14/2022 TREATMENT?ASSESSMENT BP?Stand?Pre ??04/15/2022:?122/62 ??04/13/2022:?161/74 ??04/10/2022:?162/64 BP?Sit?Pre ??04/15/2022:?109/67 ??04/13/2022:?135/60 ??04/10/2022:?135/59 BP?Stand?Post ??04/15/2022:?150/88 ??04/13/2022:?155/71 ??04/10/2022:?153/63 BP?Sit?Post ??04/15/2022:?146/85 ??04/13/2022:?167/94 ??04/10/2022:?158/87 Tx?Duration ??04/15/2022:?3:54 ??04/13/2022:?3:58 ??04/10/2022:?4:05 Missed?Treatments 0?-?last?30?days 0?-?last?60?days FLUID?ASSESSMENT EDW?(kg) ??04/15/2022:?100.3 ??04/13/2022:?100.8 ??04/10/2022:?100.8 Weight?Pre?(kg) ??04/15/2022:?103.8 ??04/13/2022:?104.4 ??04/10/2022:?103.5 Weight?Post?(kg) ??04/15/2022:?99.4 ??04/13/2022:?101.1 ??04/10/2022:?100.1 PWV?(kg) ??04/15/2022:?-0.9 ??04/13/2022:?0.3 ??04/10/2022:?-0.7 UF?Rate?(mL/kg/hr) ??04/15/2022:?11.4 ??04/13/2022:?8.2 ??04/10/2022:?8.3 ADEQUACY?ASSESSMENT spKt/V,?URR ??04/06/2022:?1.61,?74.0 ??03/16/2022:?1.54,?73.0 ??02/09/2022:?1.55,?74.0 ACCESS?ASSESSMENT ??Access?Type:?AVFistula ??Access?SubType:?Standard ??Access?Status:?Active?(In?Use)?-?09/14/2017 ??Access?Location:?Left?Forearm ??Created:?04/13/2017 Flow ??04/08/2022:?936 ??02/11/2022:?1418 ??01/28/2022:?1931 ANEMIA?ASSESSMENT HGB,?TSAT ??04/13/2022:?9.8,?- ??04/06/2022:?10.4,?31.0 ??03/30/2022:?9.9,?- ?? Ferritin ??04/06/2022:?823.0 ??03/16/2022:?880.0 ??02/09/2022:?1165.0 Mircera,?IVP?(mcg) ??04/10/2022:?50 ??03/27/2022:?50 ??03/13/2022:?50 Iron?Sucrose?(Venofer)?(mg) ??01/30/2022:?50 ??01/23/2022:?50 ??01/16/2022:?50 BMM?ASSESSMENT Phosphorus,?Calcium ??04/13/2022:?-,?8.5 ??04/06/2022:?5.2,?8.4 ??03/30/2022:?-,?8.5 ?? PTH,?Intact ??04/06/2022:?447.0 ??03/16/2022:?365.0 ??02/09/2022:?275.0 Vitamin?D?(Calcitriol)?Oral?(mcg) ??04/15/2022:?0.50 ??04/13/2022:?0.50 ??04/10/2022:?0.50 NUTRITION?ASSESSMENT Albumin,?Potassium ??04/06/2022:?4.1,?5.0 ??03/16/2022:?4.1,?5.0 ??02/09/2022:?4.0,?4.6 ?? eNPCR ??04/06/2022:?0.97 ??03/16/2022:?0.88 ??02/09/2022:?1.0 DIAGNOSIS Chief?Complaint:?N18.6?End?stage?renal?disease Patient?data?updated?04/16/2022?at?1:22?PM Signed?By:?Lesa,?Simi,?UNEMPLOYMENT EXAMINER??on?04/16/2022?1:22:40?PM END OF DOCUMENT
--- OUTSIDE RECORDS SUMMARY | 2023-12-28 16:33 | XMS_ITS ---
Author Name Simi Mcfadden Address [address] [place] [id number] Phone [phone] Organization [facility] e, NA DOCUMENT DISCLAIMER Multiple document versions may exist, please be sure you review the latest version. The information in the [facility] Progress Note Document represents a providers documented clinical note containing certain health and medical information. It may not contain the complete medical history for the patient and should be independently verified. The represented time in the document is Eastern Time PROVIDER ROUNDING NOTE BASIC Patient:?SINDI?FERNANDA,?1960,?62y,?M Dialysis?Location:?[facility] Attending?Alumni Coordinator:?Too?Eddie Service?Date:?02/11/2023 Service?Provider:?Simi?Lesa,?MANAGER OF REVENUE I?met?face?to?face?with?the?patient?today. OVERVIEW The?patient?presented?with?ESRD?on?dialysis Primary?cause?of?renal?failure:?Type?2?diabetes?mellitus&#16 0;with?diabetic?chronic?kidney?disease Comments:?02/07/23?-?Stable?treatment?with?no?acute?issues.&# 160;Recognizes?that?he?drank?too?much?over?the?weekend. 01/26?Recovering?from?COVID/?no?significant?sequellae 01/17?Isidro?is?recovering?from?Covid.?He?had?significant? muscle?aches?and?pains?but?seems?to?be?improving.?His&# 160;blood?pressure?is?now?high?again?and?I?sent?in&#160 ;a?prescription?for?amlodipine?5?mg?daily?but?she?will start?this?week. Medications?and?labs?reviewed. LAST?HOSPITALIZATION Discharge?Diagnosis:?R78.81?Bacteremia Admission?Date?08/15/22 Discharge?Date?08/18/22 DIALYSIS?PRESCRIPTION ??IHD?3x?Week?Start?date:?02/11/23 ??Dialyzer:?180NRe?Optiflux ??BFR:?450 ??DFR:?Manual?500 ??Potassium:?2.0 ??Sodium:?137 ??EDW:?98.5 ??Duration:?4:00 ??Calcium:?2.5 ??Bicarb:?35 ??Rx?updated?on:?02/09/2023 TREATMENT?ASSESSMENT BP?Stand?Pre ??02/09/2023:?125/60 ??02/07/2023:?129/61 ??02/04/2023:?185/81 BP?Sit?Pre ??02/09/2023:?145/60 ??02/07/2023:?192/88 ??02/04/2023:?211/97 BP?Stand?Post ??02/09/2023:?118/54 ??02/07/2023:?102/48 ??02/04/2023:?135/56 BP?Sit?Post ??02/09/2023:?111/61 ??02/07/2023:?126/56 ??02/04/2023:?158/81 Tx?Duration ??02/09/2023:?4:02 ??02/07/2023:?3:24 ??02/04/2023:?4:05 Missed?Treatments 0?-?last?30?days 0?-?last?60?days FLUID?ASSESSMENT EDW?(kg) ??02/09/2023:?98.0 ??02/07/2023:?98.0 ??02/04/2023:?98.0 Weight?Pre?(kg) ??02/09/2023:?101.8 ??02/07/2023:?103.1 ??02/04/2023:?101.1 Weight?Post?(kg) ??02/09/2023:?98.6 ??02/07/2023:?99.3 ??02/04/2023:?98.4 PWV?(kg) ??02/09/2023:?0.6 ??02/07/2023:?1.3 ??02/04/2023:?0.4 UF?Rate?(mL/kg/hr) ??02/09/2023:?8 ??02/07/2023:?11.3 ??02/04/2023:?6.7 ADEQUACY?ASSESSMENT spKt/V,?URR ??01/31/2023:?1.71,?76.0 ??01/03/2023:?1.63,?75.0 ??12/06/2022:?1.44,?71.0 ACCESS?ASSESSMENT ??Access?Type:?AVFistula ??Access?SubType:?Standard ??Access?Status:?Active?(In?Use)?-?09/14/2017 ??Access?Location:?Left?Forearm ??Created:?04/13/2017 Flow ??01/05/2023:?835 ??12/08/2022:?1039 ??09/02/2022:?903 ANEMIA?ASSESSMENT HGB,?TSAT ??02/07/2023:?10.0,?- ??01/31/2023:?9.8,?31.0 ??01/24/2023:?9.4,?- ?? Ferritin ??01/31/2023:?883.0 ??01/03/2023:?908.0 ??12/06/2022:?871.0 Mircera,?IVP?(mcg) ??01/07/2023:?75 ??12/10/2022:?75 ??11/12/2022:?75 Iron?Sucrose?(Venofer)?(mg) ??02/04/2023:?50 ??01/28/2023:?50 ??01/21/2023:?50 BMM?ASSESSMENT Phosphorus,?Calcium ??02/07/2023:?-,?8.4 ??01/31/2023:?5.8,?8.3 ??01/24/2023:?-,?8.7 ?? PTH,?Intact ??01/31/2023:?576.0 ??01/03/2023:?572.0 ??12/06/2022:?565.0 Vitamin?D?(Calcitriol)?Oral?(mcg) ??02/09/2023:?0.75 ??02/07/2023:?0.75 ??02/04/2023:?0.75 NUTRITION?ASSESSMENT Albumin,?Potassium ??01/31/2023:?4.1,?5.0 ??01/03/2023:?4.1,?5.0 ??12/06/2022:?4.1,?4.3 ?? eNPCR ??01/31/2023:?0.86 ??01/03/2023:?0.94 ??12/06/2022:?1.05 DIAGNOSIS Chief?Complaint:?N18.6?End?stage?renal?disease Patient?data?updated?02/11/2023?at?12:28?PM Signed?By:?Lesa,?Simi,?MANAGER OF REVENUE??on?02/11/2023?12:29:08 PM END OF DOCUMENT
--- OUTSIDE RECORDS SUMMARY | 2023-12-28 16:33 | XMS_ITS ---
Author Name Cynthia Gerber Address [address] [place] [address] Phone [phone] Organization [facility] e, NA DOCUMENT DISCLAIMER Multiple document versions may exist, please be sure you review the latest version. The information in the [facility] Progress Note Document represents a providers documented clinical note containing certain health and medical information. It may not contain the complete medical history for the patient and should be independently verified. The represented time in the document is Eastern Time PROVIDER ROUNDING NOTE COMP Provider?Rounding?Note?Comp?-?SINDI?FERNANDA?-?Chart?#:?[id number] Patient?was?seen?on:?07/20/2022 Was?Patient?seen?today?:?07/20/2022 Method?of?Interaction:?Face?to?face Date?of?Interaction:?07/20/2022 Patient?is?stable ?-?High?weight?gain?noted? ?-?Medications?and?labs?reviewed.? Prior?Treatment:?07/17/2022? Dialyzer:?180NRe?Optiflux? Dialysate:?2.0?K,?2.5 Ca,?1.0?Mg,?100?Dextrose?(G2251)? Actual?Time:?04:07?Prescribed?Time:?4:0? Avg?BFR:?440?Avg?DFR:?500? Wt?Gain?(kg):?3.20?EDW?(kg):?96.00? post?Wt?(kg):? 03/18/2022?-?EDW?decreased?to?100?based?on?recent?post- rx?weights.?04/27/2022?-?Euvolemic.??Achieving? target?weight.??No?change.?05/20/2022?-?Discuss ed?high?gains.??Will?decrease?EDW?to?98.5.?07/20/2022?-?Discussed?high?gains.??EDW?recently?incre ased?due?to?inability?to?reach?target. VITALS ?Date:?Temperature:?Pulse:?Respirations:?BP?(Sitting):?BP?(Standing):?Weight:? Volume?Management?Comments ADEQUACY ?spKt/V?eKdrt/V?OLC?(Del)?spKtv?1.63?07/06/22 ???1.47 ?07/06/22 ???1.62?07/17/22 ???1.71?06/08/22 ???1.53 ?06/08/22 ???1.39?07/15/22 ???1.73?05/11/22 ???1.56 ?05/11/22 ???1.48?07/13/22 ?URR?Potassium,?Serum?&#160 ;?Bicarbonate?Creatinine?%?mEq/L?mEq/L?&#16 0;?mg/dL ?74?07/06/22 ?? 4.3?07/06/22 ???23?07/06/22 ?76?06/08/22 ?? 4.5?06/08/22 ???24?06/08/22 ?76?05/11/22 ?? 5.3?05/11/22 ???26?05/11/22 ?-?Adequacy?parameters?reviewed? Adequacy ?-?Adequacy?target?met?Sitting?BP?Pre?Sitting BP?Post?Standing?BP?Post?143?/?82??07/17/22?105?/?64??07/17/22?117?/?59??07/17/22?149?/?85??07/15/22?124?/?73??07/15/22?129?/?62??07/15/22?153?/?88??07/10/22?140?/?71??07/10/22?111?/?76??07/10/22? Blood?Pressure ?-?Blood?pressure?controlled? Fluid?Status ?-?Fluid?status?not?acceptable? Prescription?Compliance ?-?Prescription?compliance?acceptable? ?-?Potassium?controlled? 04/27/2022?-?Will?have?patient?bring?meds?and?adjust?an tihypertensives?as?needed. VASCULAR?ACCESS ?Type?Exit?Site?&#1 60;??Status?Access?ID?AVFistula-Standard?Forearm-Left?&#160 ;?Active?(In?Use)?[id number]? Access?Flows ??1348mL?per?min?07/01/22 ??1029mL?per?min?06/03/22 ??1027mL?per?min?05/08/22 ??-?Vascular?access?reviewed? ??-?Current?access?is?functioning?well.? Most?Recent?In-center?Antibiotic?Order 11/29/2019?Vancomycin?HCl?1000?mg?IV?During?Dialysis?Once,&# 160;Clinic?4291-?Entered?By?HBMcalister ANEMIA ?HGB? Transferrin?Sat.?(Calc) ?Ferritin?g/dL?%?ng/m L?10.8?07/15/22? ??41?07/06/22?1062?07/06/22? ??10.5?07/06/22? ??54?06/08/22?1599?06/08/22? ??10.2?06/29/22? ??50?05/11/22?1124?05/11/22? Erythropoietin-Stimulating?Agents?(MICHEL)?Administrations ??50?mcg?Mircera?07/17/22 ??50?mcg?Mircera?07/03/22 ??50?mcg?Mircera?06/19/22 IV?Iron?Administrations ??50?mg?Venofer?07/17/22 ??50?mg?Venofer?07/10/22 ??50?mg?Venofer?07/03/22 ?-?Anemia?reviewed? ?-?Anemia?targets?met? BONE?AND?MINERAL?METABOLISM ?Calcium,?Total?Calcium,?Corrected?Phosphorous? &#160 ;?PTH-Intact,?Plasma?mg/dL?mg/dL?mg/dL?pg/mL?8.4?07/15/22? ??8.7?07/06/22? ??5.7?&#16 0;???07/06/22? ??419?07/06/22? ??8.7?07/06/22? ??8.5?06/08/22? ??5.6?&#16 0;???06/08/22? ??356?06/08/22? ??8.5?06/29/22? ??8.5?05/11/22? ??6.7?&#16 0;???05/11/22? ??344?05/11/22? Vitamin?D?25?Hydroxy ??15.9?05/11/22 ??15.3?05/12/21 ??13.4?05/13/20 Vitamin?D?Analogue?Administrations ??0.5?mcg?Vitamin?D?(?07/17/22 ??0.5?mcg?Vitamin?D?(?07/15/22 ??0.5?mcg?Vitamin?D?(?07/13/22 ?-?Bone?and?mineral?metabolism?parameters?reviewed? ?-?Calcium?controlled? ?-?Hyperphosphatemia?noted? ?-?Referred?to?dietitian?for?further?counseling? PTH ?-?PTH?within?target? 05/20/2022?-?Forgets?binder.??Discussed?that,?as?well?a s?high-phos?foods.??Dietitian?will?give?additional?handouts. NUTRITION ?Albumin?eNPCR?g/dL?g/kg/day?4.0?07/06/22? ??0.95 ?07/06/22? ??3.5?06/08/22? ??0.87 ?06/08/22? ??4.3?05/11/22? ??1.15 ?05/11/22? ?-?Nutrition?reviewed? HOME?MEDICATIONS ?Acetaminophen?Extra?Strength?(acetaminophen)??500?mg,?oral, ?2?tablet?every?six?hours ?aspirin?(aspirin)??325?mg,?oral,?1?tablet?once?a day ?atorvastatin?(atorvastatin)??40?mg,?oral,?1?tablet?once?a?day ?bumetanide?(bumetanide)??1?mg,?oral,?2?tablet?twice a?day ?gabapentin?(gabapentin)??300?mg,?oral,?1?capsule?three?times?a?day ?levetiracetam?(levetiracetam)??500?mg,?oral,?1?tablet? once?a?day??[TAKE?ONE?(1)?TABLET(S)?BY?MOUTH?EVERY?MORNING.] ?lidocaine-prilocaine?(lidocaine-prilocaine)??2.5-2.5%,?top,?1?a& #160;small?amount?as?directed??[apply?a?THIN?layer?to&# 160;dialysis?access?1-2?hr?prior?to?dialysis?and?wrap?with?Saran?wrap] ?losartan?(losartan)??50?mg,?oral,?1?tablet?once?a?day ?Novolog?U-100?Insulin?aspart?(insulin?aspart?u-100)??1 00?unit/mL,?subQ,?2?unit?as?directed??[Per?pump?6& #160;clicks?(12?units)?before?meals] ?Renvela?(sevelamer?carbonate)??800?mg,?oral,?1?tablet& #160;three?times?a?day??[one?with?snacks] ?sertraline?(sertraline)??50?mg,?oral,?1?tablet?once a?day EXAM ?-?Vital?signs?reviewed? Pulmonary ?-?LUNGS?-?clear? Cardiovascular ?-?CV?-?Blood?pressure?noted? ?-?CV?-?RRR? Edema ?-?EXT?-?1+?edema? ?-?EXT?-?2+?edema? TRANSPLANT?STATUS ?Person?Taught: ??-?Patient? ?Additional?Education?Required:?No ?Date?Given:?04/29/2022 INTEREST?AND?ELIGIBILITY?(If?changes?are?made,?Please?notify?SW?below) ?Date?of?discussion?from?transplant?assessment:?04/29/2022 ?Patient?already?on?transplant?list??No ?Patient?interested?in?transplantation??Not?interested?-?other ?If?undecided?or?not?interested?-?other,?why? ??Not?interested ?Has?patient's?physician?identified?one?or?more?exclusions per?the ?Contraindication?list?provider?by?the?transplant?center? 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 ?Transplant?center/state:?[facility]?[place]?[facility]?HOSP Alerts Has?transplant?appointment?January?7,?2020 Cynthia?Buzz,? END OF DOCUMENT
--- OUTSIDE RECORDS SUMMARY | 2023-12-28 16:33 | XMS_ITS ---
Author Name Simi Mcfadden Address [address] [place] [id number] Phone [phone] Organization [facility] e, NA DOCUMENT DISCLAIMER Multiple document versions may exist, please be sure you review the latest version. The information in the [facility] Progress Note Document represents a providers documented clinical note containing certain health and medical information. It may not contain the complete medical history for the patient and should be independently verified. The represented time in the document is Eastern Time PROVIDER ROUNDING NOTE BASIC Patient:?SINDI?FERNANDA,?1960,?63y,?M Dialysis?Location:?[facility] Attending?Business Division Chair:?Too?Eddie Service?Date:?10/03/2023 Service?Provider:?Simi?Lesa,?TUB RIDER I?met?face?to?face?with?the?patient?today. OVERVIEW The?patient?presented?with?ESRD?on?dialysis Primary?cause?of?renal?failure:?Type?2?diabetes?mellitus&#16 0;with?diabetic?chronic?kidney?disease Comments:?10/03/23?-?Feeling?well,?denies?N/V/D,?SOB.?Stable&# 160;treatments.?AVF?functioning?well.?Reaching?EDW. 08/29/23?-?Stable?dialysis?treatment.?AVF?functioning?well.?Reaching?EDW. 08/25?overall?feeling?ok Medications?and?labs?reviewed. LAST?HOSPITALIZATION Discharge?Diagnosis:?R78.81?Bacteremia Admission?Date?08/15/22 Discharge?Date?08/18/22 DIALYSIS?PRESCRIPTION ??IHD?3x?Week?Start?date:?09/28/23 ??Dialyzer:?180NRe?Optiflux ??BFR:?450 ??DFR:?Manual?800 ??Potassium:?2.0 ??Sodium:?137 ??EDW:?98.5 ??Duration:?4:00 ??Calcium:?2.5 ??Bicarb:?35 ??Rx?updated?on:?09/27/2023 TREATMENT?ASSESSMENT BP?Stand?Pre ??09/30/2023:?157/72 ??09/28/2023:?175/77 ??09/26/2023:?191/91 BP?Sit?Pre ??09/30/2023:?158/67 ??09/28/2023:?183/79 ??09/26/2023:?159/66 BP?Stand?Post ??09/30/2023:?106/51 ??09/28/2023:?107/57 ??09/26/2023:?147/79 BP?Sit?Post ??09/30/2023:?169/103 ??09/28/2023:?144/67 ??09/26/2023:?164/92 Tx?Duration ??09/30/2023:?4:05 ??09/28/2023:?4:12 ??09/26/2023:?4:09 Missed?Treatments 1?-?last?30?days 2?-?last?60?days 5/20?-?recent FLUID?ASSESSMENT EDW?(kg) ??09/30/2023:?98.5 ??09/28/2023:?98.5 ??09/26/2023:?98.5 Weight?Pre?(kg) ??09/30/2023:?101.8 ??09/28/2023:?101.8 ??09/26/2023:?103.1 Weight?Post?(kg) ??09/30/2023:?98.5 ??09/28/2023:?98.2 ??09/26/2023:?98.6 PWV?(kg) ??09/30/2023:?0.0 ??09/28/2023:?-0.3 ??09/26/2023:?0.1 UF?Rate?(mL/kg/hr) ??09/30/2023:?8.2 ??09/28/2023:?8.7 ??09/26/2023:?11 ADEQUACY?ASSESSMENT spKt/V,?URR ??09/05/2023:?1.28,?64.0 ??08/01/2023:?1.92,?80.0 ??07/04/2023:?1.72,?77.0 ACCESS?ASSESSMENT ??Access?Type:?AVFistula ??Access?SubType:?Standard ??Access?Status:?Active?(In?Use)?-?09/14/2017 ??Access?Location:?Left?Forearm ??Created:?04/13/2017 Flow ??09/07/2023:?1112 ??08/03/2023:?841 ??07/06/2023:?842 ANEMIA?ASSESSMENT HGB ??09/26/2023:?11.4 ??09/21/2023:?10.8 ??09/12/2023:?12.1 ?? Ferritin ??09/05/2023:?732.0 ??08/01/2023:?1221.0 ??07/04/2023:?1234.0 Mircera,?IVP?(mcg) ??08/26/2023:?75 ??08/12/2023:?75 ??07/29/2023:?75 Iron?Sucrose?(Venofer)?(mg) ??09/28/2023:?100 ??09/26/2023:?100 ??09/23/2023:?100 BMM?ASSESSMENT PTH,?Intact ??09/05/2023:?512.0 ??08/01/2023:?411.0 ??07/04/2023:?440.0 ?? Calcium ??09/26/2023:?7.9 ??09/21/2023:?8.3 ??09/12/2023:?8.3 Vitamin?D?(Calcitriol)?Oral?(mcg) ??09/30/2023:?0.75 ??09/28/2023:?0.75 ??09/26/2023:?0.75 NUTRITION?ASSESSMENT Potassium,?Albumin ??09/26/2023:?5.1,?- ??09/05/2023:?5.5,?4.1 ??08/01/2023:?4.6,?4.2 ?? eNPCR ??09/05/2023:?1.06 ??08/01/2023:?1.08 ??07/04/2023:?0.92 DIAGNOSIS Chief?Complaint:?N18.6?End?stage?renal?disease Patient?data?updated?10/03/2023?at?9:28?AM Signed?By:?Lesa,?Simi,?TUB RIDER??on?10/03/2023?9:28:59?AM END OF DOCUMENT
--- OUTSIDE RECORDS SUMMARY | 2023-12-28 16:33 | XMS_ITS ---
Author Name Simi Mcfadden Address [address] [place] [id number] Phone [phone] Organization [facility] e, NA DOCUMENT DISCLAIMER Multiple document versions may exist, please be sure you review the latest version. The information in the [facility] Progress Note Document represents a providers documented clinical note containing certain health and medical information. It may not contain the complete medical history for the patient and should be independently verified. The represented time in the document is Eastern Time PROVIDER ROUNDING NOTE BASIC Patient:?SINDI?FERNANDA,?1960,?62y,?M Dialysis?Location:?[facility] Attending?Environmental Engineering Professor:?Too?Eddie Service?Date:?11/22/2022 Service?Provider:?Simi?Lesa,?BUSINESS MANAGEMENT ANALYST I?met?face?to?face?with?the?patient?today. OVERVIEW The?patient?presented?with?ESRD?on?dialysis Primary?cause?of?renal?failure:?Type?2?diabetes?mellitus&#16 0;with?diabetic?chronic?kidney?disease Comments:?11/22/22?-?Stable?treatment?with?no?complaints?or acute?issues.? 11/17?no?cramps?with?increase?EDW? Medications?and?labs?reviewed. LAST?HOSPITALIZATION Discharge?Diagnosis:?R78.81?Bacteremia Admission?Date?08/15/22 Discharge?Date?08/18/22 DIALYSIS?PRESCRIPTION ??IHD?3x?Week?Start?date:?11/10/22 ??Dialyzer:?180NRe?Optiflux ??BFR:?450 ??DFR:?Manual?500 ??Potassium:?2.0 ??Sodium:?137 ??EDW:?98 ??Duration:?4:00 ??Calcium:?2.5 ??Bicarb:?35 ??Rx?updated?on:?11/08/2022 TREATMENT?ASSESSMENT BP?Stand?Pre ??11/19/2022:?164/81 ??11/17/2022:?199/92 BP?Sit?Pre ??11/19/2022:?175/84 ??11/17/2022:?147/67 ??11/15/2022:?209/91 BP?Stand?Post ??11/19/2022:?121/53 ??11/17/2022:?109/45 ??11/15/2022:?130/69 BP?Sit?Post ??11/19/2022:?131/60 ??11/17/2022:?153/66 ??11/15/2022:?139/70 Tx?Duration ??11/19/2022:?3:52 ??11/17/2022:?4:01 ??11/15/2022:?4:09 Missed?Treatments 0?-?last?30?days 0?-?last?60?days FLUID?ASSESSMENT EDW?(kg) ??11/19/2022:?98.0 ??11/17/2022:?98.0 ??11/15/2022:?98.0 Weight?Pre?(kg) ??11/19/2022:?100.5 ??11/17/2022:?100.9 ??11/15/2022:?102.0 Weight?Post?(kg) ??11/19/2022:?97.9 ??11/17/2022:?97.8 ??11/15/2022:?98.0 PWV?(kg) ??11/19/2022:?-0.1 ??11/17/2022:?-0.2 ??11/15/2022:?0.0 UF?Rate?(mL/kg/hr) ??11/19/2022:?6.9 ??11/17/2022:?7.9 ??11/15/2022:?9.8 ADEQUACY?ASSESSMENT spKt/V,?URR ??11/03/2022:?1.47,?72.0 ??10/04/2022:?1.62,?74.0 ??09/22/2022:?1.27,?67.0 ACCESS?ASSESSMENT ??Access?Type:?AVFistula ??Access?SubType:?Standard ??Access?Status:?Active?(In?Use)?-?09/14/2017 ??Access?Location:?Left?Forearm ??Created:?04/13/2017 Flow ??09/02/2022:?903 ??08/05/2022:?950 ??07/01/2022:?1348 ANEMIA?ASSESSMENT HGB,?TSAT ??11/15/2022:?10.2,?- ??11/08/2022:?10.7,?- ??11/03/2022:?11.3,?38.0 ?? Ferritin ??11/03/2022:?1068.0 ??10/04/2022:?1211.0 ??09/22/2022:?1113.0 Mircera,?IVP?(mcg) ??11/12/2022:?75 ??10/15/2022:?75 ??09/18/2022:?30 Iron?Sucrose?(Venofer)?(mg) ??11/19/2022:?50 ??11/12/2022:?50 ??10/01/2022:?50 BMM?ASSESSMENT Phosphorus,?Calcium ??11/15/2022:?-,?8.5 ??11/08/2022:?-,?8.5 ??11/03/2022:?6.5,?8.4 ?? PTH,?Intact ??11/03/2022:?413.0 ??10/04/2022:?524.0 ??09/22/2022:?528.0 Vitamin?D?(Calcitriol)?Oral?(mcg) ??11/19/2022:?0.50 ??11/17/2022:?0.50 ??11/15/2022:?0.50 NUTRITION?ASSESSMENT Albumin,?Potassium ??11/03/2022:?4.4,?4.8 ??10/04/2022:?3.9,?4.2 ??09/22/2022:?4.2,?4.5 ?? eNPCR ??11/03/2022:?0.98 ??10/04/2022:?0.94 ??08/31/2022:?0.9 DIAGNOSIS Chief?Complaint:?N18.6?End?stage?renal?disease Patient?data?updated?11/22/2022?at?10:05?AM Signed?By:?Lesa,?Simi,?BUSINESS MANAGEMENT ANALYST??on?11/22/2022?10:05:55 AM END OF DOCUMENT
--- OUTSIDE RECORDS SUMMARY | 2023-12-28 16:33 | XMS_ITS ---
Author Name Simi Mcfadden Address [address] [place] [address] Phone [phone] Organization [facility] e, NA DOCUMENT DISCLAIMER Multiple document versions may exist, please be sure you review the latest version. The information in the [facility] Progress Note Document represents a providers documented clinical note containing certain health and medical information. It may not contain the complete medical history for the patient and should be independently verified. The represented time in the document is Eastern Time PROVIDER ROUNDING NOTE BASIC Patient:?SINDI?FERNANDA,?1960,?62y,?M Dialysis?Location:?[facility] Attending?[place]:?Too?Eddie Service?Date:?12/20/2022 Service?Provider:?Simi?Lesa,?MAINTENANCE TRAINER I?met?face?to?face?with?the?patient?today. OVERVIEW The?patient?presented?with?ESRD?on?dialysis Primary?cause?of?renal?failure:?Type?2?diabetes?mellitus&#16 0;with?diabetic?chronic?kidney?disease Comments:?12/20/22?-?Stable?dialysis?treatment.? 12/08/22?-?Stable?dialysis?treatment?with?no?complaints?or&#16 0;acute?issues.?Access?flow?improved. 8/2.?Needs?new?access?flow?to?decide?if?he?needs?another?fistulogram? Medications?and?labs?reviewed. LAST?HOSPITALIZATION Discharge?Diagnosis:?R78.81?Bacteremia Admission?Date?08/15/22 Discharge?Date?08/18/22 DIALYSIS?PRESCRIPTION ??IHD?3x?Week?Start?date:?11/10/22 ??Dialyzer:?180NRe?Optiflux ??BFR:?450 ??DFR:?Manual?500 ??Potassium:?2.0 ??Sodium:?137 ??EDW:?98 ??Duration:?4:00 ??Calcium:?2.5 ??Bicarb:?35 ??Rx?updated?on:?11/08/2022 TREATMENT?ASSESSMENT BP?Stand?Pre ??12/13/2022:?164/77 BP?Sit?Pre ??12/17/2022:?170/84 ??12/15/2022:?137/70 ??12/13/2022:?136/71 BP?Stand?Post ??12/17/2022:?108/52 ??12/15/2022:?122/57 ??12/13/2022:?147/63 BP?Sit?Post ??12/17/2022:?119/48 ??12/15/2022:?134/70 ??12/13/2022:?146/82 Tx?Duration ??12/17/2022:?4:08 ??12/15/2022:?4:10 ??12/13/2022:?4:16 Missed?Treatments 0?-?last?30?days 0?-?last?60?days FLUID?ASSESSMENT EDW?(kg) ??12/17/2022:?98.0 ??12/15/2022:?98.0 ??12/13/2022:?98.0 Weight?Pre?(kg) ??12/17/2022:?100.8 ??12/15/2022:?100.7 ??12/13/2022:?102.2 Weight?Post?(kg) ??12/17/2022:?97.8 ??12/15/2022:?97.8 ??12/13/2022:?98.2 PWV?(kg) ??12/17/2022:?-0.2 ??12/15/2022:?-0.2 ??12/13/2022:?0.2 UF?Rate?(mL/kg/hr) ??12/17/2022:?7.4 ??12/15/2022:?7.1 ??12/13/2022:?9.5 ADEQUACY?ASSESSMENT spKt/V,?URR ??12/06/2022:?1.44,?71.0 ??11/03/2022:?1.47,?72.0 ??10/04/2022:?1.62,?74.0 ACCESS?ASSESSMENT ??Access?Type:?AVFistula ??Access?SubType:?Standard ??Access?Status:?Active?(In?Use)?-?09/14/2017 ??Access?Location:?Left?Forearm ??Created:?04/13/2017 Flow ??12/08/2022:?1039 ??09/02/2022:?903 ??08/05/2022:?950 ANEMIA?ASSESSMENT HGB,?TSAT ??12/13/2022:?10.0,?- ??12/06/2022:?10.1,?35.0 ??11/29/2022:?10.3,?- ?? Ferritin ??12/06/2022:?871.0 ??11/03/2022:?1068.0 ??10/04/2022:?1211.0 Mircera,?IVP?(mcg) ??12/10/2022:?75 ??11/12/2022:?75 ??10/15/2022:?75 Iron?Sucrose?(Venofer)?(mg) ??12/17/2022:?50 ??12/10/2022:?50 ??12/03/2022:?50 BMM?ASSESSMENT Phosphorus,?Calcium ??12/13/2022:?-,?8.3 ??12/06/2022:?6.2,?8.3 ??11/29/2022:?-,?7.8 ?? PTH,?Intact ??12/06/2022:?565.0 ??11/03/2022:?413.0 ??10/04/2022:?524.0 Vitamin?D?(Calcitriol)?Oral?(mcg) ??12/17/2022:?0.50 ??12/15/2022:?0.50 ??12/13/2022:?0.50 NUTRITION?ASSESSMENT Albumin,?Potassium ??12/06/2022:?4.1,?4.3 ??11/03/2022:?4.4,?4.8 ??10/04/2022:?3.9,?4.2 ?? eNPCR ??12/06/2022:?1.05 ??11/03/2022:?0.98 ??10/04/2022:?0.94 DIAGNOSIS Chief?Complaint:?N18.6?End?stage?renal?disease Patient?data?updated?12/20/2022?at?9:33?AM Signed?By:?Lesa,?Simi,?MAINTENANCE TRAINER??on?12/20/2022?9:33:19?AM END OF DOCUMENT
--- OUTSIDE RECORDS SUMMARY | 2023-12-28 16:33 | XMS_ITS ---
Author Name Simi Mcfadden Address [address] [place] [address] Phone [phone] Organization [facility] e, NA DOCUMENT DISCLAIMER Multiple document versions may exist, please be sure you review the latest version. The information in the [facility] Progress Note Document represents a providers documented clinical note containing certain health and medical information. It may not contain the complete medical history for the patient and should be independently verified. The represented time in the document is Eastern Time PROVIDER ROUNDING NOTE BASIC Patient:?SINDI?FERNANDA,?1960,?62y,?M Dialysis?Location:[facility] Attending?Air Traffic Control Specialist:?Too?Eddie Service?Date:?03/25/2023 Service?Provider:?Simi?Lesa,?LINUX SUPPORT ENGINEER I?met?face?to?face?with?the?patient?today. OVERVIEW The?patient?presented?with?ESRD?on?dialysis Primary?cause?of?renal?failure:?Type?2?diabetes?mellitus&#16 0;with?diabetic?chronic?kidney?disease Comments:?03/21?Has?callus?ball?of?left?foot/advised?to&#160 ;get?referral?to?surgery?via?PCP?for?debridement.?If?no t?successful?will?refer?to?[facility]?vascular?surgery.?Access ok Medications?and?labs?reviewed. LAST?HOSPITALIZATION Discharge?Diagnosis:?R78.81?Bacteremia Admission?Date?08/15/22 Discharge?Date?08/18/22 DIALYSIS?PRESCRIPTION ??IHD?3x?Week?Start?date:?02/11/23 ??Dialyzer:?180NRe?Optiflux ??BFR:?450 ??DFR:?Manual?500 ??Potassium:?2.0 ??Sodium:?137 ??EDW:?98.5 ??Duration:?4:00 ??Calcium:?2.5 ??Bicarb:?35 ??Rx?updated?on:?02/09/2023 TREATMENT?ASSESSMENT BP?Stand?Pre ??03/23/2023:?148/74 ??03/21/2023:?143/71 ??03/18/2023:?118/56 BP?Sit?Pre ??03/23/2023:?149/85 ??03/21/2023:?161/84 ??03/18/2023:?149/76 BP?Stand?Post ??03/23/2023:?121/63 ??03/21/2023:?114/60 ??03/18/2023:?129/71 BP?Sit?Post ??03/23/2023:?145/77 ??03/21/2023:?134/78 ??03/18/2023:?121/68 Tx?Duration ??03/23/2023:?4:22 ??03/21/2023:?4:05 ??03/18/2023:?4:12 Missed?Treatments 0?-?last?30?days 0?-?last?60?days FLUID?ASSESSMENT EDW?(kg) ??03/23/2023:?98.5 ??03/21/2023:?98.5 ??03/18/2023:?98.5 Weight?Pre?(kg) ??03/23/2023:?101.7 ??03/21/2023:?101.9 ??03/18/2023:?101.1 Weight?Post?(kg) ??03/23/2023:?98.6 ??03/21/2023:?98.6 ??03/18/2023:?98.3 PWV?(kg) ??03/23/2023:?0.1 ??03/21/2023:?0.1 ??03/18/2023:?-0.2 UF?Rate?(mL/kg/hr) ??03/23/2023:?7.2 ??03/21/2023:?8.2 ??03/18/2023:?6.8 ADEQUACY?ASSESSMENT spKt/V,?URR ??03/07/2023:?1.79,?78.0 ??01/31/2023:?1.71,?76.0 ??01/03/2023:?1.63,?75.0 ACCESS?ASSESSMENT ??Access?Type:?AVFistula ??Access?SubType:?Standard ??Access?Status:?Active?(In?Use)?-?09/14/2017 ??Access?Location:?Left?Forearm ??Created:?04/13/2017 Flow ??03/09/2023:?958 ??01/05/2023:?835 ??12/08/2022:?1039 ANEMIA?ASSESSMENT HGB,?TSAT ??03/21/2023:?12.5,?- ??03/14/2023:?11.8,?- ??03/07/2023:?11.5,?25.0 ?? Ferritin ??03/07/2023:?726.0 ??01/31/2023:?883.0 ??01/03/2023:?908.0 Mircera,?IVP?(mcg) ??02/25/2023:?75 ??02/11/2023:?75 ??01/07/2023:?75 Iron?Sucrose?(Venofer)?(mg) ??03/18/2023:?50 ??03/11/2023:?50 ??03/04/2023:?50 BMM?ASSESSMENT Phosphorus,?Calcium ??03/21/2023:?-,?8.3 ??03/14/2023:?-,?8.3 ??03/07/2023:?7.8,?8.4 ?? PTH,?Intact ??03/07/2023:?429.0 ??01/31/2023:?576.0 ??01/03/2023:?572.0 Vitamin?D?(Calcitriol)?Oral?(mcg) ??03/23/2023:?0.75 ??03/21/2023:?0.75 ??03/18/2023:?0.75 NUTRITION?ASSESSMENT Albumin,?Potassium ??03/07/2023:?4.2,?5.2 ??01/31/2023:?4.1,?5.0 ??01/03/2023:?4.1,?5.0 ?? eNPCR ??03/07/2023:?1.21 ??01/31/2023:?0.86 ??01/03/2023:?0.94 DIAGNOSIS Chief?Complaint:?N18.6?End?stage?renal?disease Patient?data?updated?03/25/2023?at?10:02?AM Signed?By:?Lesa,?Simi,?LINUX SUPPORT ENGINEER??on?03/25/2023?10:02:53 AM END OF DOCUMENT
--- OUTSIDE RECORDS SUMMARY | 2023-12-28 16:33 | XMS_ITS ---
Author Name Too Morgan Address [address] [place] [address] Phone [phone] Organization [facility] e, NA DOCUMENT DISCLAIMER Multiple document versions may exist, please be sure you review the latest version. The information in the [facility] Progress Note Document represents a providers documented clinical note containing certain health and medical information. It may not contain the complete medical history for the patient and should be independently verified. The represented time in the document is Eastern Time PROVIDER ROUNDING NOTE COMPREHENSIVE Patient:?SINDI?FERNANDA,?1960,?62y,?M Dialysis?Location:?[facility] Attending?Biological Lab Technician:?Too?Eddie Service?Date:?03/16/2023 Service?Provider:?Too?Eddie,? I?met?face?to?face?with?the?patient?today. OVERVIEW The?patient?presented?with?ESRD?on?dialysis Primary?cause?of?renal?failure:?Type?2?diabetes?mellitus&#16 0;with?diabetic?chronic?kidney?disease Comments:?03/16/23?-?c/o?muscle?twitching,?will?stop?diureti c?and?decrease?gabapentin?to?twice?a?day.? Patient's?blood?pressure?was?elevated?today.?I?increased?his ?Norvasc?to?10?mg?daily?from?5?mg?daily.?Will continue?to?follow?this. Medications?and?labs?reviewed. LAST?HOSPITALIZATION Discharge?Diagnosis:?R78.81?Bacteremia Admission?Date?08/15/22 Discharge?Date?08/18/22 DIALYSIS?PRESCRIPTION ??IHD?3x?Week?Start?date:?02/11/23 ??Dialyzer:?180NRe?Optiflux ??BFR:?450 ??DFR:?Manual?500 ??Potassium:?2.0 ??Sodium:?137 ??EDW:?98.5 ??Duration:?4:00 ??Calcium:?2.5 ??Bicarb:?35 ??Rx?updated?on:?02/09/2023 TREATMENT?ASSESSMENT Blood?pressure?controlled.?No?changes?indicated.? BP?Stand?Pre ??03/14/2023:?158/80 ??03/11/2023:?139/62 ??03/09/2023:?152/66 BP?Sit?Pre ??03/14/2023:?168/87 ??03/11/2023:?141/69 ??03/09/2023:?152/80 BP?Stand?Post ??03/14/2023:?126/64 ??03/11/2023:?115/53 BP?Sit?Post ??03/14/2023:?154/77 ??03/11/2023:?157/69 ??03/09/2023:?150/80 Tx?Duration ??03/14/2023:?4:03 ??03/11/2023:?4:06 ??03/09/2023:?4:07 Missed?Treatments 0?-?last?30?days 0?-?last?60?days FLUID?ASSESSMENT Fluid?status?acceptable.?Interdialytic?weight?gain?acceptable.?No ?changes?indicated.? EDW?(kg) ??03/14/2023:?98.5 ??03/11/2023:?98.5 ??03/09/2023:?98.5 Weight?Pre?(kg) ??03/14/2023:?102.8 ??03/11/2023:?100.9 ??03/09/2023:?101.4 Weight?Post?(kg) ??03/14/2023:?99.3 ??03/11/2023:?97.4 ??03/09/2023:?98.3 PWV?(kg) ??03/14/2023:?0.8 ??03/11/2023:?-1.1 ??03/09/2023:?-0.2 UF?Rate?(mL/kg/hr) ??03/14/2023:?8.7 ??03/11/2023:?8.8 ??03/09/2023:?7.7 ADEQUACY?ASSESSMENT Adequacy?target?met.?Prescription?compliance?acceptable.?No?changes?indicated.? spKt/V,?URR ??03/07/2023:?1.79,?78.0 ??01/31/2023:?1.71,?76.0 ??01/03/2023:?1.63,?75.0 ACCESS?ASSESSMENT ??Access?Type:?AVFistula ??Access?SubType:?Standard ??Access?Status:?Active?(In?Use)?-?09/14/2017 ??Access?Location:?Left?Forearm ??Created:?04/13/2017 Flow ??03/09/2023:?958 ??01/05/2023:?835 ??12/08/2022:?1039 Vascular?access?reviewed.?Current?access?is?permanent?and?functioning?well. ANEMIA?ASSESSMENT HGB?at?goal.?Iron?parameters?acceptable.?MICHEL?dose?adequate.& #160;No?changes?indicated.? HGB,?TSAT ??03/07/2023:?11.5,?25.0 ??02/28/2023:?10.4,?- ??02/21/2023:?11.1,?- ?? Ferritin ??03/07/2023:?726.0 ??01/31/2023:?883.0 ??01/03/2023:?908.0 Mircera,?IVP?(mcg) ??02/25/2023:?75 ??02/11/2023:?75 ??01/07/2023:?75 Iron?Sucrose?(Venofer)?(mg) ??03/11/2023:?50 ??03/04/2023:?50 ??02/25/2023:?50 BMM?ASSESSMENT PTH?controlled.?Calcium?controlled.?Phosphorus?elevated.?BMM?meds ?adherence?not?acceptable.?Diet?reviewed?with?patient.? Phosphorus,?Calcium ??03/07/2023:?7.8,?8.4 ??02/28/2023:?-,?8.2 ??02/21/2023:?-,?8.6 ?? PTH,?Intact ??03/07/2023:?429.0 ??01/31/2023:?576.0 ??01/03/2023:?572.0 Vitamin?D?(Calcitriol)?Oral?(mcg) ??03/14/2023:?0.75 ??03/11/2023:?0.75 ??03/09/2023:?0.75 NUTRITION?ASSESSMENT Potassium?controlled.?Albumin?controlled.?No?changes?indicated.? Albumin,?Potassium ??03/07/2023:?4.2,?5.2 ??01/31/2023:?4.1,?5.0 ??01/03/2023:?4.1,?5.0 ?? eNPCR ??03/07/2023:?1.21 ??01/31/2023:?0.86 ??01/03/2023:?0.94 DIAGNOSIS Chief?Complaint:?N18.6?End?stage?renal?disease Patient?data?updated?03/16/2023?at?9:54?AM Signed?By:?Eddie,?Too,???on?03/16/2023?9:56:58?AM END OF DOCUMENT
--- OUTSIDE RECORDS SUMMARY | 2023-12-28 16:33 | XMS_ITS | Continuity of Care Document ---
Author Organization [facility] Address [address] [place] [address] Care Team Providers Care Cash Management Coordinator Name Role Phone HILARY COHEN MD Primary Care Physician Encounter [facility] NBR [id number] Date(s): 10/05/23 - 10/05/23 [facility] [address] [place] [address]- us Patient Care team information Care Team Personnel Name: HILARY COHEN MD Position: No Access Member Role: Primary Care Physician Address: Address: [address] [place] [id number]
--- OUTSIDE RECORDS SUMMARY | 2023-12-28 16:33 | XMS_ITS ---
Author Name Simi Mcfadden Address [address] [place] [id number] Phone [phone] Organization [facility] e, NA DOCUMENT DISCLAIMER The information in the [facility] Dialysis Provider Note Document represents a providersdocumented clinical note containing certain health and medical information. It may not contain the complete medical history for the patient and should be independently verified. The represented time in the document is Eastern Time PROVIDER ROUNDING NOTE BASIC Patient:?SINDI?FERNANDA,?1960,?62y,?M Dialysis?Location:?[facility] Attending?Government Minister:?Cynthia?Buzz Service?Date:?04/20/2022 Service?Provider:?Simi?Lesa,?PACK WORKER I?met?face?to?face?with?the?patient?today. OVERVIEW The?patient?presented?with?ESRD?on?dialysis Primary?cause?of?renal?failure:?Type?2?diabetes?mellitus&#16 0;with?diabetic?chronic?kidney?disease Comments:?04/20/22?-?Large?IDWG?today.??Discussed?in?detail?with?patient.? 04/08/22?-?Increase?calcitriol?to?0.5mcg?for?low?Ca?and& #160;elevated?PTH.?Stable?treatment. 04/01/22?-?Stable?treatment,?no?complaints.??Feeling?well on?off?days. 03/16/22?-?Ending?treatment?below?EDW?with?stable?BP.?& #160;Will?adjust?EDW.??Stable?treatment?today?with?no?complaints. 03/09?Overall?stable/no?acute?issues Medications?and?labs?reviewed. DIALYSIS?PRESCRIPTION ??IHD?3x?Week?Start?date:?04/17/22 ??Dialyzer:?180NRe?Optiflux ??BFR:?450 ??DFR:?Manual?500 ??Potassium:?2.0 ??Sodium:?137 ??EDW:?99.5 ??Duration:?4:00 ??Calcium:?2.5 ??Bicarb:?35 ??Rx?updated?on:?04/17/2022 TREATMENT?ASSESSMENT BP?Stand?Pre ??04/15/2022:?122/62 ??04/13/2022:?161/74 BP?Sit?Pre ??04/17/2022:?130/80 ??04/15/2022:?109/67 ??04/13/2022:?135/60 BP?Stand?Post ??04/17/2022:?153/89 ??04/15/2022:?150/88 ??04/13/2022:?155/71 BP?Sit?Post ??04/17/2022:?138/72 ??04/15/2022:?146/85 ??04/13/2022:?167/94 Tx?Duration ??04/17/2022:?4:00 ??04/15/2022:?3:54 ??04/13/2022:?3:58 Missed?Treatments 0?-?last?30?days 0?-?last?60?days FLUID?ASSESSMENT EDW?(kg) ??04/17/2022:?100.3 ??04/15/2022:?100.3 ??04/13/2022:?100.8 Weight?Pre?(kg) ??04/17/2022:?101.6 ??04/15/2022:?103.8 ??04/13/2022:?104.4 Weight?Post?(kg) ??04/17/2022:?99.4 ??04/15/2022:?99.4 ??04/13/2022:?101.1 PWV?(kg) ??04/17/2022:?-0.9 ??04/15/2022:?-0.9 ??04/13/2022:?0.3 UF?Rate?(mL/kg/hr) ??04/17/2022:?5.5 ??04/15/2022:?11.4 ??04/13/2022:?8.2 ADEQUACY?ASSESSMENT spKt/V,?URR ??04/06/2022:?1.61,?74.0 ??03/16/2022:?1.54,?73.0 ??02/09/2022:?1.55,?74.0 ACCESS?ASSESSMENT ??Access?Type:?AVFistula ??Access?SubType:?Standard ??Access?Status:?Active?(In?Use)?-?09/14/2017 ??Access?Location:?Left?Forearm ??Created:?04/13/2017 Flow ??04/08/2022:?936 ??02/11/2022:?1418 ??01/28/2022:?1931 ANEMIA?ASSESSMENT HGB,?TSAT ??04/13/2022:?9.8,?- ??04/06/2022:?10.4,?31.0 ??03/30/2022:?9.9,?- ?? Ferritin ??04/06/2022:?823.0 ??03/16/2022:?880.0 ??02/09/2022:?1165.0 Mircera,?IVP?(mcg) ??04/10/2022:?50 ??03/27/2022:?50 ??03/13/2022:?50 Iron?Sucrose?(Venofer)?(mg) ??04/17/2022:?50 ??01/30/2022:?50 ??01/23/2022:?50 BMM?ASSESSMENT Phosphorus,?Calcium ??04/13/2022:?-,?8.5 ??04/06/2022:?5.2,?8.4 ??03/30/2022:?-,?8.5 ?? PTH,?Intact ??04/06/2022:?447.0 ??03/16/2022:?365.0 ??02/09/2022:?275.0 Vitamin?D?(Calcitriol)?Oral?(mcg) ??04/17/2022:?0.50 ??04/15/2022:?0.50 ??04/13/2022:?0.50 NUTRITION?ASSESSMENT Albumin,?Potassium ??04/06/2022:?4.1,?5.0 ??03/16/2022:?4.1,?5.0 ??02/09/2022:?4.0,?4.6 ?? eNPCR ??04/06/2022:?0.97 ??03/16/2022:?0.88 ??02/09/2022:?1.0 DIAGNOSIS Chief?Complaint:?N18.6?End?stage?renal?disease Patient?data?updated?04/20/2022?at?12:35?PM Signed?By:?Lesa,?Simi,?PACK WORKER??on?04/20/2022?12:36:04 PM END OF DOCUMENT
--- OUTSIDE RECORDS SUMMARY | 2023-12-28 16:33 | XMS_ITS ---
Author Name Simi Mcfadden Address [address] [place] [id number] Phone [phone] Organization [facility] e, NA DOCUMENT DISCLAIMER Multiple document versions may exist, please be sure you review the latest version. The information in the [facility] [place] [facility] Progress Note Document represents a providers documented clinical note containing certain health and medical information. It may not contain the complete medical history for the patient and should be independently verified. The represented time in the document is Eastern Time PROVIDER ROUNDING NOTE BASIC Patient:?SINDI?FERNANDA,?1960,?62y,?M Dialysis?Location:?[place] Attending?Public Housing Manager:?Cynthia?Buzz Service?Date:?09/07/2022 Service?Provider:?Simi?Lesa,?CLASP MACHINE OPERATOR I?met?face?to?face?with?the?patient?today. OVERVIEW The?patient?presented?with?ESRD?on?dialysis Primary?cause?of?renal?failure:?Type?2?diabetes?mellitus&#16 0;with?diabetic?chronic?kidney?disease Comments:?09/07/22?-?Stable?treatment?with?no?acute?issues or?complaints. 08/19/22?-?Return?to?clinic?after?hospitalization?for?pneumon ia.?Feeling?well?today,?no?sob,?no?edema.?Stable?treatment.? 08/03/22?-?High?IDWG?discussed?with?pt. 07/27/22?-?Reports?difficulty?managing?blood?sugar?lately,?vargas s?an?appt?with?diabetes?educator?and?PCP?tomorrow.? 06/15/22-Tolerating?HD?well?and?denies?any?new?complaints.? 06/10/22-?Tolerating?HD?well?and?denies?any?new?complaints. Metabolic?and?volume?parameters?reviewed.? Education?provided?on?reviewed?monthly?labs?and?UFG.?No changes?made 05/06/22-?Tolerating?treatment?well.?Denies?any?concerns. 04/20/22?-?Large?IDWG?today.??Discussed?in?detail?with patient.? 04/08/22?-?Increase?calcitriol?to?0.5mcg?for?low?Ca?and& #160;elevated?PTH.?Stable?treatment. 04/01/22?-?Stable?treatment,?no?complaints.??Feeling?well on?off?days. 03/16/22?-?Ending?treatment?below?EDW?with?stable?BP.?& #160;Will?adjust?EDW.??Stable?treatment?today?with?no?complaints. 03/09?Overall?stable/no?acute?issues 05/27/22 Doing?all?right?on?dialysis,?but?feels?dizzy?and?fatigu ed?after?HD,?currently?on?Losartan?and?Amlodipine,?he?w as?asked?to?keep?a?log?of?blood?pressure?and?bring ?it?next?week.?Phos?running?high. 06/01/ Blood?pressure?stable.?He?forgot?to?bring?the?blood?pressure?log.? Medications?and?labs?reviewed. LAST?HOSPITALIZATION Discharge?Diagnosis:?R78.81?Bacteremia Admission?Date?08/15/22 Discharge?Date?08/18/22 DIALYSIS?PRESCRIPTION ??IHD?3x?Week?Start?date:?07/22/22 ??Dialyzer:?180NRe?Optiflux ??BFR:?450 ??DFR:?Manual?500 ??Potassium:?2.0 ??Sodium:?137 ??EDW:?97 ??Duration:?4:00 ??Calcium:?2.5 ??Bicarb:?35 ??Rx?updated?on:?07/22/2022 TREATMENT?ASSESSMENT BP?Stand?Pre ??09/04/2022:?161/68 ??09/02/2022:?149/53 BP?Sit?Pre ??09/04/2022:?139/65 ??09/02/2022:?160/80 ??08/31/2022:?126/82 BP?Stand?Post ??09/04/2022:?116/56 ??09/02/2022:?100/66 ??08/31/2022:?121/56 BP?Sit?Post ??09/04/2022:?140/74 ??09/02/2022:?138/80 ??08/31/2022:?110/73 Tx?Duration ??09/04/2022:?3:46 ??09/02/2022:?3:53 ??08/31/2022:?3:52 Missed?Treatments 0?-?last?30?days 0?-?last?60?days FLUID?ASSESSMENT EDW?(kg) ??09/04/2022:?97.0 ??09/02/2022:?97.0 ??08/31/2022:?97.0 Weight?Pre?(kg) ??09/04/2022:?100.2 ??09/02/2022:?100.1 ??08/31/2022:?100.6 Weight?Post?(kg) ??09/04/2022:?97.3 ??09/02/2022:?97.3 ??08/31/2022:?96.9 PWV?(kg) ??09/04/2022:?0.3 ??09/02/2022:?0.3 ??08/31/2022:?-0.1 UF?Rate?(mL/kg/hr) ??09/04/2022:?7.9 ??09/02/2022:?7.4 ??08/31/2022:?9.9 ADEQUACY?ASSESSMENT spKt/V,?URR ??08/31/2022:?1.57,?73.0 ??08/03/2022:?1.65,?75.0 ??07/06/2022:?1.63,?74.0 ACCESS?ASSESSMENT ??Access?Type:?AVFistula ??Access?SubType:?Standard ??Access?Status:?Active?(In?Use)?-?09/14/2017 ??Access?Location:?Left?Forearm ??Created:?04/13/2017 Flow ??09/02/2022:?903 ??08/05/2022:?950 ??07/01/2022:?1348 ANEMIA?ASSESSMENT HGB,?TSAT ??08/31/2022:?11.1,?32.0 ??08/24/2022:?11.2,?- ??08/19/2022:?10.9,?- ?? Ferritin ??08/31/2022:?1180.0 ??08/03/2022:?992.0 ??07/06/2022:?1062.0 Mircera,?IVP?(mcg) ??09/04/2022:?30 ??08/21/2022:?75 ??07/24/2022:?75 Iron?Sucrose?(Venofer)?(mg) ??08/12/2022:?100 ??08/10/2022:?100 ??07/31/2022:?50 BMM?ASSESSMENT Phosphorus,?Calcium ??08/31/2022:?6.5,?8.3 ??08/24/2022:?-,?8.5 ??08/10/2022:?-,?8.8 ?? PTH,?Intact ??08/31/2022:?360.0 ??08/03/2022:?538.0 ??07/06/2022:?419.0 Vitamin?D?(Calcitriol)?Oral?(mcg) ??09/04/2022:?0.50 ??09/02/2022:?0.50 ??08/31/2022:?0.50 NUTRITION?ASSESSMENT Albumin,?Potassium ??08/31/2022:?3.9,?4.5 ??08/03/2022:?3.8,?6.0 ??07/06/2022:?4.0,?4.3 ?? eNPCR ??08/31/2022:?0.9 ??08/03/2022:?1.06 ??07/06/2022:?0.95 DIAGNOSIS Chief?Complaint:?N18.6?End?stage?renal?disease Patient?data?updated?09/07/2022?at?1:08?PM Signed?By:?Lesa,?Simi,?CLASP MACHINE OPERATOR??on?09/07/2022?1:08:39?PM END OF DOCUMENT
--- OUTSIDE RECORDS SUMMARY | 2023-12-28 16:33 | XMS_ITS ---
Author Name Ming Seth [facility] Address [address] [place] [address] Phone [phone] Organization [facility] e, NA DOCUMENT DISCLAIMER Multiple document versions may exist, please be sure you review the latest version. The information in the [facility] Progress Note Document represents a providers documented clinical note containing certain health and medical information. It may not contain the complete medical history for the patient and should be independently verified. The represented time in the document is Eastern Time PROVIDER ROUNDING NOTE BASIC Patient:?SINDI?FERNANDA,?1960,?62y,?M Dialysis?Location:?[place] Attending?Photoengraving Machine Operator/Tender:?Cynthia?Buzz Service?Date:?06/10/2022 Service?Provider:?Shira?Rolo,?POURER BUGGY LADLE I?met?face?to?face?with?the?patient?today. OVERVIEW The?patient?presented?with?ESRD?on?dialysis Primary?cause?of?renal?failure:?Type?2?diabetes?mellitus&#16 0;with?diabetic?chronic?kidney?disease Comments:?11/07/22-?Tolerating?HD?well?and?denies?any?new complaints.? Metabolic?and?volume?parameters?reviewed.? Education?provided?on?reviewed?monthly?labs?and?UFG.?No changes?made 05/06/22-?Tolerating?treatment?well.?Denies?any?concerns. 04/20/22?-?Large?IDWG?today.??Discussed?in?detail?with patient.? 04/08/22?-?Increase?calcitriol?to?0.5mcg?for?low?Ca?and& #160;elevated?PTH.?Stable?treatment. 04/01/22?-?Stable?treatment,?no?complaints.??Feeling?well on?off?days. 03/16/22?-?Ending?treatment?below?EDW?with?stable?BP.?& #160;Will?adjust?EDW.??Stable?treatment?today?with?no?complaints. 03/09?Overall?stable/no?acute?issues 05/27/22 Doing?all?right?on?dialysis,?but?feels?dizzy?and?fatigu ed?after?HD,?currently?on?Losartan?and?Amlodipine,?he?w as?asked?to?keep?a?log?of?blood?pressure?and?bring ?it?next?week.?Phos?running?high. 06/01/ Blood?pressure?stable.?He?forgot?to?bring?the?blood?pressure?log. DIALYSIS?PRESCRIPTION ??IHD?3x?Week?Start?date:?06/08/22 ??Dialyzer:?180NRe?Optiflux ??BFR:?450 ??DFR:?Manual?500 ??Potassium:?2.0 ??Sodium:?137 ??EDW:?97 ??Duration:?4:00 ??Calcium:?2.5 ??Bicarb:?35 ??Rx?updated?on:?06/08/2022 TREATMENT?ASSESSMENT BP?Stand?Pre ??06/08/2022:?135/57 ??06/03/2022:?145/63 BP?Sit?Pre ??06/08/2022:?117/53 ??06/05/2022:?140/68 ??06/03/2022:?159/74 BP?Stand?Post ??06/08/2022:?116/61 ??06/05/2022:?132/68 ??06/03/2022:?137/60 BP?Sit?Post ??06/08/2022:?119/78 ??06/05/2022:?140/75 ??06/03/2022:?157/100 Tx?Duration ??06/08/2022:?4:08 ??06/05/2022:?4:06 ??06/03/2022:?4:11 Missed?Treatments 0?-?last?30?days 0?-?last?60?days FLUID?ASSESSMENT EDW?(kg) ??06/08/2022:?98.5 ??06/05/2022:?98.5 ??06/03/2022:?98.5 Weight?Pre?(kg) ??06/08/2022:?101.9 ??06/05/2022:?99.6 ??06/03/2022:?99.0 Weight?Post?(kg) ??06/08/2022:?98.0 ??06/05/2022:?97.6 ??06/03/2022:?97.8 PWV?(kg) ??06/08/2022:?-0.5 ??06/05/2022:?-0.9 ??06/03/2022:?-0.7 UF?Rate?(mL/kg/hr) ??06/08/2022:?9.6 ??06/05/2022:?5 ??06/03/2022:?2.9 ADEQUACY?ASSESSMENT spKt/V,?URR ??05/11/2022:?1.73,?76.0 ??04/06/2022:?1.61,?74.0 ??03/16/2022:?1.54,?73.0 ACCESS?ASSESSMENT ??Access?Type:?AVFistula ??Access?SubType:?Standard ??Access?Status:?Active?(In?Use)?-?09/14/2017 ??Access?Location:?Left?Forearm ??Created:?04/13/2017 Flow ??06/03/2022:?1029 ??05/08/2022:?1027 ??05/06/2022:?1293 ANEMIA?ASSESSMENT HGB,?TSAT ??06/08/2022:?10.3,?54.0 ??06/01/2022:?11.0,?- ??05/25/2022:?11.0,?- ?? Ferritin ??06/08/2022:?1599.0 ??05/11/2022:?1124.0 ??04/06/2022:?823.0 Mircera,?IVP?(mcg) ??04/24/2022:?50 ??04/10/2022:?50 ??03/27/2022:?50 Iron?Sucrose?(Venofer)?(mg) ??05/29/2022:?50 ??05/01/2022:?50 ??04/24/2022:?50 BMM?ASSESSMENT Phosphorus,?Calcium ??06/08/2022:?5.6,?8.1 ??06/01/2022:?-,?8.8 ??05/25/2022:?-,?8.4 ?? PTH,?Intact ??06/08/2022:?356.0 ??05/11/2022:?344.0 ??04/06/2022:?447.0 Vitamin?D?(Calcitriol)?Oral?(mcg) ??06/08/2022:?0.50 ??06/05/2022:?0.50 ??06/03/2022:?0.50 NUTRITION?ASSESSMENT Albumin,?Potassium ??06/08/2022:?3.5,?4.5 ??05/11/2022:?4.3,?5.3 ??04/06/2022:?4.1,?5.0 ?? eNPCR ??05/11/2022:?1.15 ??04/06/2022:?0.97 ??03/16/2022:?0.88 DIAGNOSIS Chief?Complaint:?N18.6?End?stage?renal?disease Patient?data?updated?06/10/2022?at?1:48?PM Signed?By:?Rolo,?Shira,?POURER BUGGY LADLE??on?06/10/2022?1:49:16?PM END OF DOCUMENT
--- OUTSIDE RECORDS SUMMARY | 2023-12-28 16:33 | XMS_ITS ---
Author Name Simi Mcfadden Address [address] [place] [id number] Phone [phone] Organization [facility] e, NA DOCUMENT DISCLAIMER Multiple document versions may exist, please be sure you review the latest version. The information in the [facility] Progress Note Document represents a providers documented clinical note containing certain health and medical information. It may not contain the complete medical history for the patient and should be independently verified. The represented time in the document is Eastern Time PROVIDER ROUNDING NOTE BASIC Patient:?SINDI?FERNANDA,?1960,?62y,?M Dialysis?Location:?[place] Attending?Passenger Car Inspector:?Cynthia?Buzz Service?Date:?07/15/2022 Service?Provider:?Simi?Lesa,?BUILD TECHNICIAN I?met?face?to?face?with?the?patient?today. OVERVIEW The?patient?presented?with?ESRD?on?dialysis Primary?cause?of?renal?failure:?Type?2?diabetes?mellitus&#16 0;with?diabetic?chronic?kidney?disease Comments:?06/15/22-Tolerating?HD?well?and?denies?any?new?complaints.? 06/10/22-?Tolerating?HD?well?and?denies?any?new?complaints. Metabolic?and?volume?parameters?reviewed.? Education?provided?on?reviewed?monthly?labs?and?UFG.?No changes?made 05/06/22-?Tolerating?treatment?well.?Denies?any?concerns. 04/20/22?-?Large?IDWG?today.??Discussed?in?detail?with patient.? 04/08/22?-?Increase?calcitriol?to?0.5mcg?for?low?Ca?and& #160;elevated?PTH.?Stable?treatment. 04/01/22?-?Stable?treatment,?no?complaints.??Feeling?well on?off?days. 03/16/22?-?Ending?treatment?below?EDW?with?stable?BP.?& #160;Will?adjust?EDW.??Stable?treatment?today?with?no?complaints. 03/09?Overall?stable/no?acute?issues 05/27/22 Doing?all?right?on?dialysis,?but?feels?dizzy?and?fatigu ed?after?HD,?currently?on?Losartan?and?Amlodipine,?he?w as?asked?to?keep?a?log?of?blood?pressure?and?bring ?it?next?week.?Phos?running?high. 06/01/ Blood?pressure?stable.?He?forgot?to?bring?the?blood?pressure?log.? Medications?and?labs?reviewed. DIALYSIS?PRESCRIPTION ??IHD?3x?Week?Start?date:?07/01/22 ??Dialyzer:?180NRe?Optiflux ??BFR:?450 ??DFR:?Manual?500 ??Potassium:?2.0 ??Sodium:?137 ??EDW:?95.5 ??Duration:?4:00 ??Calcium:?2.5 ??Bicarb:?35 ??Rx?updated?on:?07/01/2022 TREATMENT?ASSESSMENT BP?Stand?Pre ??07/13/2022:?147/81 ??07/08/2022:?152/89 BP?Sit?Pre ??07/13/2022:?147/61 ??07/10/2022:?153/88 ??07/08/2022:?142/66 BP?Stand?Post ??07/13/2022:?145/55 ??07/10/2022:?111/76 ??07/08/2022:?125/94 BP?Sit?Post ??07/13/2022:?131/58 ??07/10/2022:?140/71 ??07/08/2022:?116/98 Tx?Duration ??07/13/2022:?4:02 ??07/10/2022:?3:42 ??07/08/2022:?3:51 Missed?Treatments 0?-?last?30?days 0?-?last?60?days FLUID?ASSESSMENT EDW?(kg) ??07/13/2022:?95.5 ??07/10/2022:?95.5 ??07/08/2022:?95.5 Weight?Pre?(kg) ??07/13/2022:?99.2 ??07/10/2022:?97.4 ??07/08/2022:?100.3 Weight?Post?(kg) ??07/13/2022:?96.8 ??07/10/2022:?94.9 ??07/08/2022:?95.3 PWV?(kg) ??07/13/2022:?1.3 ??07/10/2022:?-0.6 ??07/08/2022:?-0.2 UF?Rate?(mL/kg/hr) ??07/13/2022:?6.1 ??07/10/2022:?7.1 ??07/08/2022:?13.6 ADEQUACY?ASSESSMENT spKt/V,?URR ??07/06/2022:?1.63,?74.0 ??06/08/2022:?1.71,?76.0 ??05/11/2022:?1.73,?76.0 ACCESS?ASSESSMENT ??Access?Type:?AVFistula ??Access?SubType:?Standard ??Access?Status:?Active?(In?Use)?-?09/14/2017 ??Access?Location:?Left?Forearm ??Created:?04/13/2017 Flow ??07/01/2022:?1348 ??06/03/2022:?1029 ??05/08/2022:?1027 ANEMIA?ASSESSMENT HGB,?TSAT ??07/06/2022:?10.5,?41.0 ??06/29/2022:?10.2,?- ??06/22/2022:?10.3,?- ?? Ferritin ??07/06/2022:?1062.0 ??06/08/2022:?1599.0 ??05/11/2022:?1124.0 Mircera,?IVP?(mcg) ??07/03/2022:?50 ??06/19/2022:?50 ??04/24/2022:?50 Iron?Sucrose?(Venofer)?(mg) ??07/10/2022:?50 ??07/03/2022:?50 ??06/26/2022:?50 BMM?ASSESSMENT Phosphorus,?Calcium ??07/06/2022:?5.7,?8.7 ??06/29/2022:?-,?8.5 ??06/22/2022:?-,?8.5 ?? PTH,?Intact ??07/06/2022:?419.0 ??06/08/2022:?356.0 ??05/11/2022:?344.0 Vitamin?D?(Calcitriol)?Oral?(mcg) ??07/13/2022:?0.50 ??07/10/2022:?0.50 ??07/08/2022:?0.50 NUTRITION?ASSESSMENT Albumin,?Potassium ??07/06/2022:?4.0,?4.3 ??06/08/2022:?3.5,?4.5 ??05/11/2022:?4.3,?5.3 ?? eNPCR ??07/06/2022:?0.95 ??06/08/2022:?0.87 ??05/11/2022:?1.15 DIAGNOSIS Chief?Complaint:?N18.6?End?stage?renal?disease Patient?data?updated?07/15/2022?at?1:05?PM Signed?By:?Lesa,?Simi,?BUILD TECHNICIAN??on?07/15/2022?1:05:54?PM END OF DOCUMENT
--- OUTSIDE RECORDS SUMMARY | 2023-12-28 16:33 | XMS_ITS ---
Author Name Nettie Davis Address [address] [place] [id number] Phone [phone] Organization [facility] e, NA DOCUMENT DISCLAIMER Multiple document versions may exist, please be sure you review the latest version. The information in the [facility] Emergency Department Progress Note Document represents a providers documented clinical note containing certain health and medical information. It may not contain the complete medical history for the patient and should be independently verified. The represented time in the document is Eastern Time PROVIDER ROUNDING NOTE BASIC HD PROVIDER?ROUNDING?NOTE?BASIC?HD Clinic:?[address] [place] [address].?[facility] Visit?date:?09/22/2022?00:00?Modality/setting:?IHD SINDI?MICHAEL?-?Chart?#:?[id number] Method?of?Interaction:?Face?to?face Date?of?Interaction:?12/12/2023 ?-?Patient?is?stable Patient?issues?include: 12/12/23-?Pt?tolerating?treatment?well.?No?pt?issues?or?complaints.??12/05/23-?Pt tolerating?treatment?well.??No?issues?of?patient?complaints. Prior?Treatment:?12/09/2023? Dialyzer:?180NRe?Optiflux? Dialysate:?2.0?K,?2.5 Ca,?1.0?Mg,?100?Dextrose?(G2251)? Prescribed?Time:?4:0? Actual?Time:?04:01? Avg?BFR:?440? Avg?DFR:?800? Wt?Gain?(kg):?2.30? EDW?(kg):?100.00? Home?Medications ?Acetaminophen?Extra?Strength?(acetaminophen) 500?mg,?oral,?2?tablet?every?six?hours ??aspirin?(aspirin) 325?mg,?oral,?1/2?tablet?once?a?day ??atorvastatin?(atorvastatin) 40?mg,?oral,?1?tablet?once?a?day ??Basaglar?KwikPen?U-100?Insulin?(insulin?glargine) 100?unit/mL?(3?mL),?subQ, [takes?45?units] ??Breo?Ellipta?(fluticasone?furoate-vilanterol) 100-25?mcg/dose,?inhl, ??gabapentin?(gabapentin) 300?mg,?oral,?1?capsule?twice?a?day ??Norvasc?(amlodipine) 5?mg,?oral,?1?tablet?once?a?day ??Novolog?U-100?Insulin?aspart?(insulin?aspart?u-100) 100?unit/mL,?subQ,?2?unit?as?directed [Per?pump?6?clicks?(12?units)?before?meals] ??Renal?Caps?(b?complex?with?c?20-folic?acid) 1?mg,?oral,?1?capsule?once?a?day ??Renvela?(sevelamer?carbonate) 800?mg,?oral,?3?tablet?three?times?a?day [1-2?with?snacks] ??sertraline?(sertraline) 50?mg,?oral,?1?tablet?once?a?day ??tamsulosin?(tamsulosin) 0.4?mg,?oral,?1?capsule?every?night Nettie?J?Susan,?HEAD WAITER END OF DOCUMENT
--- OUTSIDE RECORDS SUMMARY | 2023-12-28 16:33 | XMS_ITS ---
Author Name Simi Mcfadden Address [address] [place] [address] Phone [phone] Organization [facility] e, NA DOCUMENT DISCLAIMER Multiple document versions may exist, please be sure you review the latest version. The information [facility] the [facility] Progress Note Document represents a providers documented clinical note containing certain health and medical information. It may not contain the complete medical history for the patient and should be independently verified. The represented time in the document is Eastern Time PROVIDER ROUNDING NOTE COMPREHENSIVE THIS NOTE HAS BEEN VOIDED IN THE SOURCE SYSTEM. END OF DOCUMENT
--- OUTSIDE RECORDS SUMMARY | 2023-12-28 16:33 | XMS_ITS ---
Author Name Simi Mcfadden Address [address] [place] [id number] Phone [phone] Organization [facility] e, NA DOCUMENT DISCLAIMER Multiple document versions may exist, please be sure you review the latest version. The information in the [facility]ney [facility] Progress Note Document represents a providers documented clinical note containing certain health and medical information. It may not contain the complete medical history for the patient and should be independently verified. The represented time in the document is Eastern Time PROVIDER ROUNDING NOTE BASIC Patient:?SINDI?FERNANDA,?1960,?62y,?M Dialysis?Location:[facility] Attending?General Pediatrician:?Too?Eddie Service?Date:?03/30/2023 Service?Provider:?Simi?Lesa,?[employer] COORDINATOR I?met?face?to?face?with?the?patient?today. OVERVIEW The?patient?presented?with?ESRD?on?dialysis Primary?cause?of?renal?failure:?Type?2?diabetes?mellitus&#16 0;with?diabetic?chronic?kidney?disease Comments:?03/21?Has?callus?ball?of?left?foot/advised?to&#160 ;get?referral?to?surgery?via?PCP?for?debridement.?If?no t?successful?will?refer?to?[facility]?vascular?surgery.?Access ok Medications?and?labs?reviewed. LAST?HOSPITALIZATION Discharge?Diagnosis:?R78.81?Bacteremia Admission?Date?08/15/22 Discharge?Date?08/18/22 DIALYSIS?PRESCRIPTION ??IHD?3x?Week?Start?date:?03/28/23 ??Dialyzer:?180NRe?Optiflux ??BFR:?450 ??DFR:?Manual?500 ??Potassium:?2.0 ??Sodium:?137 ??EDW:?98.8 ??Duration:?4:00 ??Calcium:?2.5 ??Bicarb:?35 ??Rx?updated?on:?03/25/2023 TREATMENT?ASSESSMENT BP?Stand?Pre ??03/28/2023:?137/59 ??03/25/2023:?159/84 ??03/23/2023:?148/74 BP?Sit?Pre ??03/28/2023:?197/95 ??03/25/2023:?163/76 ??03/23/2023:?149/85 BP?Stand?Post ??03/28/2023:?149/69 ??03/25/2023:?131/44 ??03/23/2023:?121/63 BP?Sit?Post ??03/28/2023:?168/94 ??03/25/2023:?157/82 ??03/23/2023:?145/77 Tx?Duration ??03/28/2023:?4:06 ??03/25/2023:?3:58 ??03/23/2023:?4:22 Missed?Treatments 0?-?last?30?days 0?-?last?60?days FLUID?ASSESSMENT EDW?(kg) ??03/28/2023:?98.8 ??03/25/2023:?98.5 ??03/23/2023:?98.5 Weight?Pre?(kg) ??03/28/2023:?103.1 ??03/25/2023:?101.4 ??03/23/2023:?101.7 Weight?Post?(kg) ??03/28/2023:?99.8 ??03/25/2023:?98.7 ??03/23/2023:?98.6 PWV?(kg) ??03/28/2023:?1.0 ??03/25/2023:?0.2 ??03/23/2023:?0.1 UF?Rate?(mL/kg/hr) ??03/28/2023:?8.1 ??03/25/2023:?6.9 ??03/23/2023:?7.2 ADEQUACY?ASSESSMENT spKt/V,?URR ??03/07/2023:?1.79,?78.0 ??01/31/2023:?1.71,?76.0 ??01/03/2023:?1.63,?75.0 ACCESS?ASSESSMENT ??Access?Type:?AVFistula ??Access?SubType:?Standard ??Access?Status:?Active?(In?Use)?-?09/14/2017 ??Access?Location:?Left?Forearm ??Created:?04/13/2017 Flow ??03/09/2023:?958 ??01/05/2023:?835 ??12/08/2022:?1039 ANEMIA?ASSESSMENT HGB,?TSAT ??03/21/2023:?12.5,?- ??03/14/2023:?11.8,?- ??03/07/2023:?11.5,?25.0 ?? Ferritin ??03/07/2023:?726.0 ??01/31/2023:?883.0 ??01/03/2023:?908.0 Mircera,?IVP?(mcg) ??02/25/2023:?75 ??02/11/2023:?75 ??01/07/2023:?75 Iron?Sucrose?(Venofer)?(mg) ??03/25/2023:?50 ??03/18/2023:?50 ??03/11/2023:?50 BMM?ASSESSMENT Phosphorus,?Calcium ??03/21/2023:?-,?8.3 ??03/14/2023:?-,?8.3 ??03/07/2023:?7.8,?8.4 ?? PTH,?Intact ??03/07/2023:?429.0 ??01/31/2023:?576.0 ??01/03/2023:?572.0 Vitamin?D?(Calcitriol)?Oral?(mcg) ??03/28/2023:?0.75 ??03/25/2023:?0.75 ??03/23/2023:?0.75 NUTRITION?ASSESSMENT Albumin,?Potassium ??03/07/2023:?4.2,?5.2 ??01/31/2023:?4.1,?5.0 ??01/03/2023:?4.1,?5.0 ?? eNPCR ??03/07/2023:?1.21 ??01/31/2023:?0.86 ??01/03/2023:?0.94 DIAGNOSIS Chief?Complaint:?N18.6?End?stage?renal?disease Patient?data?updated?03/30/2023?at?9:55?AM Signed?By:?Lesa,?Simi,?[employer] COORDINATOR??on?03/30/2023?9:56:01?AM END OF DOCUMENT
--- OUTSIDE RECORDS SUMMARY | 2023-12-28 16:34 | XMS_ITS ---
Author Name Simi Mcfadden Address [address] [place] [id number] Phone [phone] Organization [facility] e, NA DOCUMENT DISCLAIMER The information in the [facility] Dialysis Provider Note Document represents a providersdocumented clinical note containing certain health and medical information. It may not contain the complete medical history for the patient and should be independently verified. The represented time in the document is Eastern Time PROVIDER ROUNDING NOTE BASIC Patient:?SINDI?FERNANDA,?1960,?62y,?M Dialysis?Location:?[facility] Attending?[facility] Professional:?Cynthia?[employer]?Date:?04/16/2022 Service?Provider:?Simi?Lesa,?BODY FITTER I?met?face?to?face?with?the?patient?today. OVERVIEW The?patient?presented?with?ESRD?on?dialysis Primary?cause?of?renal?failure:?Type?2?diabetes?mellitus&#16 0;with?diabetic?chronic?kidney?disease Comments:?04/08/22?-?Increase?calcitriol?to?0.5mcg?for?low&#1 60;Ca?and?elevated?PTH.?Stable?treatment. [...] eNPCR ??04/06/2022:?0.97 ??03/16/2022:?0.88 ??02/09/2022:?1.0 DIAGNOSIS Chief?Complaint:?N18.6?End?stage?renal?disease Patient?data?updated?04/16/2022?at?1:22?PM Signed?By:?Lesa,?Simi,?BODY FITTER??on?04/16/2022?1:22:16?PM END OF DOCUMENT
--- OUTSIDE RECORDS SUMMARY | 2023-12-28 16:34 | XMS_ITS ---
Author Name Too Morgan Address [address] [place] [address] Phone [phone] Organization [facility] e, NA DOCUMENT DISCLAIMER Multiple document versions may exist, please be sure you review the latest version. The information in the [facility] Progress Note Document represents a providers documented clinical note containing certain health and medical information. It may not contain the complete medical history for the patient and should be independently verified. The represented time in the document is Eastern Time PROVIDER ROUNDING NOTE COMPREHENSIVE Patient:?SINDI?FERNANDA,?1960,?63y,?M Dialysis?Location:?[facility] Attending?French Instructor:?Jose A Service?Date:?06/20/2023 Service?Provider:?Too?Eddie,? I?met?face?to?face?with?the?patient?today. OVERVIEW The?patient?presented?with?ESRD?on?dialysis Primary?cause?of?renal?failure:?Type?2?diabetes?mellitus&#16 0;with?diabetic?chronic?kidney?disease Comments:?06/20?stable?on?hd Medications?and?labs?reviewed. LAST?HOSPITALIZATION Discharge?Diagnosis:?R78.81?Bacteremia Admission?Date?08/15/22 Discharge?Date?08/18/22 DIALYSIS?PRESCRIPTION ??IHD?3x?Week?Start?date:?04/04/23 ??Dialyzer:?180NRe?Optiflux ??BFR:?450 ??DFR:?Manual?500 ??Potassium:?2.0 ??Sodium:?137 ??EDW:?98.5 ??Duration:?4:00 ??Calcium:?2.5 ??Bicarb:?35 ??Rx?updated?on:?04/04/2023 TREATMENT?ASSESSMENT Blood?pressure?controlled.?No?changes?indicated.? BP?Stand?Pre ??06/17/2023:?143/69 ??06/15/2023:?175/89 ??06/13/2023:?121/83 BP?Sit?Pre ??06/17/2023:?120/70 ??06/15/2023:?168/89 ??06/13/2023:?158/67 BP?Stand?Post ??06/17/2023:?160/75 ??06/15/2023:?153/81 ??06/13/2023:?130/94 BP?Sit?Post ??06/17/2023:?147/75 ??06/15/2023:?153/88 ??06/13/2023:?150/82 Tx?Duration ??06/17/2023:?4:11 ??06/15/2023:?3:58 ??06/13/2023:?4:09 Missed?Treatments 1?-?last?30?days 1?-?last?60?days 2/2?-?recent FLUID?ASSESSMENT Fluid?status?acceptable.?Interdialytic?weight?gain?acceptable.?No ?changes?indicated.? EDW?(kg) ??06/17/2023:?98.5 ??06/15/2023:?98.5 ??06/13/2023:?98.5 Weight?Pre?(kg) ??06/17/2023:?102.0 ??06/15/2023:?102.2 ??06/13/2023:?103.6 Weight?Post?(kg) ??06/17/2023:?99.6 ??06/15/2023:?99.9 ??06/13/2023:?99.7 PWV?(kg) ??06/17/2023:?1.1 ??06/15/2023:?1.4 ??06/13/2023:?1.2 UF?Rate?(mL/kg/hr) ??06/17/2023:?5.8 ??06/15/2023:?5.8 ??06/13/2023:?9.4 ADEQUACY?ASSESSMENT Adequacy?target?not?met.?Prescription?compliance?acceptable.? spKt/V,?URR ??06/06/2023:?1.17,?62.0 ??05/04/2023:?1.79,?78.0 ??04/04/2023:?1.6,?74.0 ACCESS?ASSESSMENT ??Access?Type:?AVFistula ??Access?SubType:?Standard ??Access?Status:?Active?(In?Use)?-?09/14/2017 ??Access?Location:?Left?Forearm ??Created:?04/13/2017 Flow ??06/08/2023:?811 ??05/09/2023:?949 ??04/06/2023:?973 Vascular?access?reviewed.?Current?access?is?permanent?and?functioning?well. ANEMIA?ASSESSMENT HGB?at?goal.?Iron?parameters?acceptable.?MICHEL?dose?adequate. HGB,?TSAT ??06/13/2023:?10.2,?- ??06/06/2023:?10.9,?53.0 ??05/30/2023:?11.3,?- ?? Ferritin ??06/06/2023:?831.0 ??05/04/2023:?953.0 ??04/04/2023:?863.0 Mircera,?IVP?(mcg) ??05/06/2023:?75 ??04/22/2023:?75 ??04/08/2023:?75 Iron?Sucrose?(Venofer)?(mg) ??06/10/2023:?50 ??05/06/2023:?50 ??04/29/2023:?50 BMM?ASSESSMENT PTH?controlled.?Calcium?controlled.? Phosphorus,?Calcium ??06/13/2023:?-,?8.2 ??06/06/2023:?5.9,?8.3 ??05/30/2023:?-,?8.8 ?? PTH,?Intact ??06/06/2023:?382.0 ??05/04/2023:?379.0 ??04/04/2023:?366.0 Vitamin?D?(Calcitriol)?Oral?(mcg) ??06/17/2023:?0.75 ??06/15/2023:?0.75 ??06/13/2023:?0.75 NUTRITION?ASSESSMENT Potassium?controlled.?Albumin?controlled.?No?changes?indicated.? Albumin,?Potassium ??06/06/2023:?4.1,?5.0 ??05/04/2023:?4.3,?4.6 ??04/04/2023:?4.3,?5.0 ?? eNPCR ??06/06/2023:?1.24 ??05/04/2023:?1.33 ??04/04/2023:?1.14 PHYSICAL?EXAM Exam?Performed.?Vital?Signs?Reviewed.?Lungs?-?Clear. DIAGNOSIS Chief?Complaint:?N18.6?End?stage?renal?disease Patient?data?updated?06/20/2023?at?9:58?AM Signed?By:?Eddie,?Too???on?06/20/2023?10:01:31 AM END OF DOCUMENT
--- OUTSIDE RECORDS SUMMARY | 2023-12-28 16:34 | XMS_ITS ---
Author Name Too Morgan Address [address] [place] [address] Phone [phone] Organization [facility] e, NA DOCUMENT DISCLAIMER Multiple document versions may exist, please be sure you review the latest version. The information in the [facility] Progress Note Document represents a providers documented clinical note containing certain health and medical information. It may not contain the complete medical history for the patient and should be independently verified. The represented time in the document is Eastern Time PROVIDER ROUNDING NOTE COMPREHENSIVE Patient:?SINDI?FERNANDA,?1960,?63y,?M Dialysis?Location:?[facility] Attending?Zinc Chloride Operator:?Too?Eddie Service?Date:?07/18/2023 Service?Provider:?Too?Eddie,? I?met?face?to?face?with?the?patient?today. OVERVIEW The?patient?presented?with?ESRD?on?dialysis Primary?cause?of?renal?failure:?Type?2?diabetes?mellitus&#16 0;with?diabetic?chronic?kidney?disease Comments:?07/17?no?acute?issues. LAST?HOSPITALIZATION Discharge?Diagnosis:?R78.81?Bacteremia Admission?Date?08/15/22 Discharge?Date?08/18/22 DIALYSIS?PRESCRIPTION ??IHD?3x?Week?Start?date:?04/04/23 ??Dialyzer:?180NRe?Optiflux ??BFR:?450 ??DFR:?Manual?500 ??Potassium:?2.0 ??Sodium:?137 ??EDW:?98.5 ??Duration:?4:00 ??Calcium:?2.5 ??Bicarb:?35 ??Rx?updated?on:?04/04/2023 TREATMENT?ASSESSMENT Blood?pressure?controlled.?No?changes?indicated.? BP?Stand?Pre ??07/15/2023:?112/42 ??07/13/2023:?135/56 ??07/11/2023:?141/58 BP?Sit?Pre ??07/15/2023:?123/58 ??07/13/2023:?147/62 ??07/11/2023:?125/65 BP?Stand?Post ??07/15/2023:?107/63 ??07/13/2023:?130/55 ??07/11/2023:?105/67 BP?Sit?Post ??07/15/2023:?123/66 ??07/13/2023:?129/67 ??07/11/2023:?140/75 Tx?Duration ??07/15/2023:?4:16 ??07/13/2023:?4:03 ??07/11/2023:?4:05 Missed?Treatments 0?-?last?30?days 1?-?last?60?days 2/2?-?recent FLUID?ASSESSMENT Fluid?status?acceptable.?Interdialytic?weight?gain?not?acceptable .?Optimal?weight?discussed.? EDW?(kg) ??07/15/2023:?98.5 ??07/13/2023:?98.5 ??07/11/2023:?98.5 Weight?Pre?(kg) ??07/15/2023:?101.4 ??07/13/2023:?101.2 ??07/11/2023:?101.9 Weight?Post?(kg) ??07/15/2023:?98.7 ??07/13/2023:?98.2 ??07/11/2023:?98.5 PWV?(kg) ??07/15/2023:?0.2 ??07/13/2023:?-0.3 ??07/11/2023:?0.0 UF?Rate?(mL/kg/hr) ??07/15/2023:?6.4 ??07/13/2023:?7.5 ??07/11/2023:?8.5 ADEQUACY?ASSESSMENT Adequacy?target?met.?Prescription?compliance?acceptable.? spKt/V,?URR ??07/04/2023:?1.72,?77.0 ??06/22/2023:?1.72,?76.0 ??06/06/2023:?1.17,?62.0 ACCESS?ASSESSMENT ??Access?Type:?AVFistula ??Access?SubType:?Standard ??Access?Status:?Active?(In?Use)?-?09/14/2017 ??Access?Location:?Left?Forearm ??Created:?04/13/2017 Flow ??07/06/2023:?842 ??06/08/2023:?811 ??05/09/2023:?949 Vascular?access?reviewed.?Current?access?is?permanent?and?functioning?well. ANEMIA?ASSESSMENT HGB?below?goal.?Iron?parameters?acceptable.?MICHEL?dose?adequat e.?No?changes?indicated.? HGB,?TSAT ??07/11/2023:?9.1,?- ??07/04/2023:?9.4,?73.0 ??06/27/2023:?10.0,?- ?? Ferritin ??07/04/2023:?1234.0 ??06/06/2023:?831.0 ??05/04/2023:?953.0 Mircera,?IVP?(mcg) ??07/15/2023:?75 ??05/06/2023:?75 ??04/22/2023:?75 Iron?Sucrose?(Venofer)?(mg) ??07/15/2023:?50 ??07/08/2023:?50 ??07/01/2023:?50 BMM?ASSESSMENT PTH?controlled.?Calcium?elevated.?Phosphorus?controlled.?Counseled&#16 0;pt?on?meds?adherence.? Phosphorus,?Calcium ??07/11/2023:?-,?8.7 ??07/04/2023:?6.0,?8.7 ??06/27/2023:?-,?8.4 ?? PTH,?Intact ??07/04/2023:?440.0 ??06/06/2023:?382.0 ??05/04/2023:?379.0 Vitamin?D?(Calcitriol)?Oral?(mcg) ??07/15/2023:?0.75 ??07/13/2023:?0.75 ??07/11/2023:?0.75 NUTRITION?ASSESSMENT Potassium?controlled.?Albumin?controlled.?No?changes?indicated.? Albumin,?Potassium ??07/04/2023:?4.0,?5.0 ??06/06/2023:?4.1,?5.0 ??05/04/2023:?4.3,?4.6 ?? eNPCR ??07/04/2023:?0.92 ??06/22/2023:?1.21 ??06/06/2023:?1.24 PHYSICAL?EXAM Exam?Performed.?Vital?Signs?Reviewed.?Lungs?-?Clear. DIAGNOSIS Chief?Complaint:?N18.6?End?stage?renal?disease Patient?data?updated?07/18/2023?at?9:48?AM Signed?By:?Eddie,?Too???on?07/18/2023?9:52:39?AM END OF DOCUMENT
--- OUTSIDE RECORDS SUMMARY | 2023-12-28 16:34 | XMS_ITS ---
Author Name Simi Mcfadden Address [address] [place] [address] Phone [phone] Organization [facility] e, NA DOCUMENT DISCLAIMER Multiple document versions may exist, please be sure you review the latest version. The information in the [facility] Progress Note Document represents a providers documented clinical note containing certain health and medical information. It may not contain the complete medical history for the patient and should be independently verified. The represented time in the document is Eastern Time PROVIDER ROUNDING NOTE BASIC Patient:?SINDI?FERNANDA,?1960,?62y,?M Dialysis?Location:?[facility] Attending?Silverware Washer:?Too?Eddie Service?Date:?02/07/2023 Service?Provider:?Simi?Lesa,?ABSTRACT CHECKER I?met?face?to?face?with?the?patient?today. OVERVIEW The?patient?presented?with?ESRD?on?dialysis Primary?cause?of?renal?failure:?Type?2?diabetes?mellitus&#16 0;with?diabetic?chronic?kidney?disease Comments:?02/07/23?-?Stable?treatment?with?no?acute?issues.&# 160;Recognizes?that?he?drank?too?much?over?the?weekend. 01/26?Recovering?from?COVID/?no?significant?sequellae 01/17?Isidro?is?recovering?from?Covid.?He?had?significant? muscle?aches?and?pains?but?seems?to?be?improving.?His&# 160;blood?pressure?is?now?high?again?and?I?sent?in&#160 ;a?prescription?for?amlodipine?5?mg?daily?but?she?will start?this?week. Medications?and?labs?reviewed. LAST?HOSPITALIZATION Discharge?Diagnosis:?R78.81?Bacteremia Admission?Date?08/15/22 Discharge?Date?08/18/22 DIALYSIS?PRESCRIPTION ??IHD?3x?Week?Start?date:?11/10/22 ??Dialyzer:?180NRe?Optiflux ??BFR:?450 ??DFR:?Manual?500 ??Potassium:?2.0 ??Sodium:?137 ??EDW:?98 ??Duration:?4:00 ??Calcium:?2.5 ??Bicarb:?35 ??Rx?updated?on:?11/08/2022 TREATMENT?ASSESSMENT BP?Stand?Pre ??02/04/2023:?185/81 ??02/02/2023:?142/66 ??01/31/2023:?202/100 BP?Sit?Pre ??02/04/2023:?211/97 ??02/02/2023:?127/59 ??01/31/2023:?163/82 BP?Stand?Post ??02/04/2023:?135/56 ??02/02/2023:?136/56 ??01/31/2023:?169/79 BP?Sit?Post ??02/04/2023:?158/81 ??02/02/2023:?177/77 ??01/31/2023:?148/66 Tx?Duration ??02/04/2023:?4:05 ??02/02/2023:?4:12 ??01/31/2023:?4:04 Missed?Treatments 0?-?last?30?days 0?-?last?60?days FLUID?ASSESSMENT EDW?(kg) ??02/04/2023:?98.0 ??02/02/2023:?98.0 ??01/31/2023:?98.0 Weight?Pre?(kg) ??02/04/2023:?101.1 ??02/02/2023:?100.6 ??01/31/2023:?102.7 Weight?Post?(kg) ??02/04/2023:?98.4 ??02/02/2023:?97.9 ??01/31/2023:?99.0 PWV?(kg) ??02/04/2023:?0.4 ??02/02/2023:?-0.1 ??01/31/2023:?1.0 UF?Rate?(mL/kg/hr) ??02/04/2023:?6.7 ??02/02/2023:?6.6 ??01/31/2023:?9.2 ADEQUACY?ASSESSMENT spKt/V,?URR ??01/31/2023:?1.71,?76.0 ??01/03/2023:?1.63,?75.0 ??12/06/2022:?1.44,?71.0 ACCESS?ASSESSMENT ??Access?Type:?AVFistula ??Access?SubType:?Standard ??Access?Status:?Active?(In?Use)?-?09/14/2017 ??Access?Location:?Left?Forearm ??Created:?04/13/2017 Flow ??01/05/2023:?835 ??12/08/2022:?1039 ??09/02/2022:?903 ANEMIA?ASSESSMENT HGB,?TSAT ??01/31/2023:?9.8,?31.0 ??01/24/2023:?9.4,?- ??01/17/2023:?10.0,?- ?? Ferritin ??01/31/2023:?883.0 ??01/03/2023:?908.0 ??12/06/2022:?871.0 Mircera,?IVP?(mcg) ??01/07/2023:?75 ??12/10/2022:?75 ??11/12/2022:?75 Iron?Sucrose?(Venofer)?(mg) ??02/04/2023:?50 ??01/28/2023:?50 ??01/21/2023:?50 BMM?ASSESSMENT Phosphorus,?Calcium ??01/31/2023:?5.8,?8.3 ??01/24/2023:?-,?8.7 ??01/17/2023:?-,?8.2 ?? PTH,?Intact ??01/31/2023:?576.0 ??01/03/2023:?572.0 ??12/06/2022:?565.0 Vitamin?D?(Calcitriol)?Oral?(mcg) ??02/04/2023:?0.75 ??02/02/2023:?0.75 ??01/31/2023:?0.75 NUTRITION?ASSESSMENT Albumin,?Potassium ??01/31/2023:?4.1,?5.0 ??01/03/2023:?4.1,?5.0 ??12/06/2022:?4.1,?4.3 ?? eNPCR ??01/31/2023:?0.86 ??01/03/2023:?0.94 ??12/06/2022:?1.05 DIAGNOSIS Chief?Complaint:?N18.6?End?stage?renal?disease Patient?data?updated?02/07/2023?at?10:18?AM Signed?By:?Lesa,?Simi,?ABSTRACT CHECKER??on?02/07/2023?10:19:50 AM END OF DOCUMENT
--- OUTSIDE RECORDS SUMMARY | 2023-12-28 16:34 | XMS_ITS ---
Author Name Cynthia Gerber Address [address] [place] [id number] Phone [phone] Organization [facility] e, NA DOCUMENT DISCLAIMER Multiple document versions may exist, please be sure you review the latest version. The information in the [facility] Progress Note Document represents a providers documented clinical note containing certain health and medical information. It may not contain the complete medical history for the patient and should be independently verified. The represented time in the document is Eastern Time PROVIDER ROUNDING NOTE BASIC Provider?Rounding?Note?Basic?-?SINDI?FERNANDA?-?Chart?#:?[id number] Patient?was?seen?on:?07/01/2022 Was?Patient?seen?today?:?07/01/2022 Method?of?Interaction:?Via?Telehealth Reason:?Other Comments:?Weather Date?of?Interaction:?07/01/2022 Patient?is?stable Patient?issues?include: 06/08/2022?-?Decreased?EDW?to?97?based?on?recent?post-r x?weights.?07/01/2022?-?Decreased?EDW?to?95.5&# 160;based?on?recent?post-rx?weights. Prior?Treatment:?06/29/2022? Dialyzer:?180NRe?Optiflux? Dialysate:?2.0?K,?2.5 Ca,?1.0?Mg,?100?Dextrose?(G2251)? Actual?Time:?04:03?Prescribed?Time:?4:0? Avg?BFR:?450?Avg?DFR:?500? Wt?Gain?(kg):?4.80?EDW?(kg):?96.00? post?Wt?(kg):? VITALS ?Date:?Temperature:?Pulse:?Respirations:?BP?(Sitting):?BP?(Standing):?Weight:? HOME?MEDICATIONS ?Acetaminophen?Extra?Strength?(acetaminophen)??500?mg,?oral, ?2?tablet?every?six?hours ?aspirin?(aspirin)??325?mg,?oral,?1?tablet?once?a day ?atorvastatin?(atorvastatin)??40?mg,?oral,?1?tablet?once?a?day ?bumetanide?(bumetanide)??1?mg,?oral,?2?tablet?twice a?day ?gabapentin?(gabapentin)??300?mg,?oral,?1?capsule?three?times?a?day ?levetiracetam?(levetiracetam)??500?mg,?oral,?1?tablet? once?a?day??[TAKE?ONE?(1)?TABLET(S)?BY?MOUTH?EVERY?MORNING.] ?lidocaine-prilocaine?(lidocaine-prilocaine)??2.5-2.5%,?top,?1?a& #160;small?amount?as?directed??[apply?a?THIN?layer?to&# 160;dialysis?access?1-2?hr?prior?to?dialysis?and?wrap?with?Saran?wrap] ?losartan?(losartan)??50?mg,?oral,?1?tablet?once?a?day ?Novolog?U-100?Insulin?aspart?(insulin?aspart?u-100)??1 00?unit/mL,?subQ,?2?unit?as?directed??[Per?pump?6& #160;clicks?(12?units)?before?meals] ?Renvela?(sevelamer?carbonate)??800?mg,?oral,?1?tablet& #160;three?times?a?day??[one?with?snacks] ?sertraline?(sertraline)??50?mg,?oral,?1?tablet?once a?day Cynthia?Bzuz,? END OF DOCUMENT
--- OUTSIDE RECORDS SUMMARY | 2023-12-28 16:34 | XMS_ITS ---
Author Name Simi Mcfadden Address [address] [place] [id number] Phone [phone] Organization [facility] e, NA DOCUMENT DISCLAIMER Multiple document versions may exist, please be sure you review the latest version. The information in the [facility] Progress Note Document represents a providers documented clinical note containing certain health and medical information. It may not contain the complete medical history for the patient and should be independently verified. The represented time in the document is Eastern Time PROVIDER ROUNDING NOTE BASIC Patient:?SINDI?FERNANDA,?1960,?62y,?M Dialysis?Location:?[facility] Attending?Cutting And Splicing Supervisor:?Cynthia?Buzz Service?Date:?08/19/2022 Service?Provider:?Simi?Lesa,?HAND STAMPER I?met?face?to?face?with?the?patient?today. OVERVIEW The?patient?presented?with?ESRD?on?dialysis Primary?cause?of?renal?failure:?Type?2?diabetes?mellitus&#16 0;with?diabetic?chronic?kidney?disease Comments:?08/19/22?-?Return?to?clinic?after?hospitalization?f or?pneumonia.?Feeling?well?today,?no?sob,?no?edema.?Stable?treatment.? 08/03/22?-?High?IDWG?discussed?with?pt. 07/27/22?-?Reports?difficulty?managing?blood?sugar?lately,?vargas s?an?appt?with?diabetes?educator?and?PCP?tomorrow.? 06/15/22-Tolerating?HD?well?and?denies?any?new?complaints.? 06/10/22-?Tolerating?HD?well?and?denies?any?new?complaints. Metabolic?and?volume?parameters?reviewed.? Education?provided?on?reviewed?monthly?labs?and?UFG.?No changes?made 05/06/22-?Tolerating?treatment?well.?Denies?any?concerns. 04/20/22?-?Large?IDWG?today.??Discussed?in?detail?with patient.? 04/08/22?-?Increase?calcitriol?to?0.5mcg?for?low?Ca?and& #160;elevated?PTH.?Stable?treatment. 04/01/22?-?Stable?treatment,?no?complaints.??Feeling?well on?off?days. 03/16/22?-?Ending?treatment?below?EDW?with?stable?BP.?& #160;Will?adjust?EDW.??Stable?treatment?today?with?no?complaints. 03/09?Overall?stable/no?acute?issues 05/27/22 Doing?all?right?on?dialysis,?but?feels?dizzy?and?fatigu ed?after?HD,?currently?on?Losartan?and?Amlodipine,?he?w as?asked?to?keep?a?log?of?blood?pressure?and?bring ?it?next?week.?Phos?running?high. 06/01/ Blood?pressure?stable.?He?forgot?to?bring?the?blood?pressure?log.? Medications?and?labs?reviewed. DIALYSIS?PRESCRIPTION ??IHD?3x?Week?Start?date:?07/22/22 ??Dialyzer:?180NRe?Optiflux ??BFR:?450 ??DFR:?Manual?500 ??Potassium:?2.0 ??Sodium:?137 ??EDW:?97 ??Duration:?4:00 ??Calcium:?2.5 ??Bicarb:?35 ??Rx?updated?on:?07/22/2022 TREATMENT?ASSESSMENT BP?Sit?Pre ??08/12/2022:?135/62 ??08/10/2022:?137/93 ??08/07/2022:?149/77 BP?Stand?Post ??08/12/2022:?120/54 ??08/10/2022:?152/88 ??08/07/2022:?129/65 BP?Sit?Post ??08/12/2022:?107/65 ??08/10/2022:?122/70 ??08/07/2022:?130/84 Tx?Duration ??08/12/2022:?4:03 ??08/10/2022:?3:55 ??08/07/2022:?3:56 Missed?Treatments 0?-?last?30?days 0?-?last?60?days FLUID?ASSESSMENT EDW?(kg) ??08/12/2022:?97.0 ??08/10/2022:?97.0 ??08/07/2022:?97.0 Weight?Pre?(kg) ??08/12/2022:?101.1 ??08/10/2022:?101.1 ??08/07/2022:?99.1 Weight?Post?(kg) ??08/12/2022:?97.9 ??08/10/2022:?98.3 ??08/07/2022:?97.1 PWV?(kg) ??08/12/2022:?0.9 ??08/10/2022:?1.3 ??08/07/2022:?0.1 UF?Rate?(mL/kg/hr) ??08/12/2022:?8.1 ??08/10/2022:?7.3 ??08/07/2022:?5.2 ADEQUACY?ASSESSMENT spKt/V,?URR ??08/03/2022:?1.65,?75.0 ??07/06/2022:?1.63,?74.0 ??06/08/2022:?1.71,?76.0 ACCESS?ASSESSMENT ??Access?Type:?AVFistula ??Access?SubType:?Standard ??Access?Status:?Active?(In?Use)?-?09/14/2017 ??Access?Location:?Left?Forearm ??Created:?04/13/2017 Flow ??08/05/2022:?950 ??07/01/2022:?1348 ??06/03/2022:?1029 ANEMIA?ASSESSMENT HGB,?TSAT ??08/10/2022:?11.1,?- ??08/03/2022:?11.2,?12.0 ??07/27/2022:?10.7,?- ?? Ferritin ??08/03/2022:?992.0 ??07/06/2022:?1062.0 ??06/08/2022:?1599.0 Mircera,?IVP?(mcg) ??07/24/2022:?75 ??07/17/2022:?50 ??07/03/2022:?50 Iron?Sucrose?(Venofer)?(mg) ??08/12/2022:?100 ??08/10/2022:?100 ??07/31/2022:?50 BMM?ASSESSMENT Phosphorus,?Calcium ??08/10/2022:?-,?8.8 ??08/03/2022:?4.8,?8.3 ??07/27/2022:?-,?8.7 ?? PTH,?Intact ??08/03/2022:?538.0 ??07/06/2022:?419.0 ??06/08/2022:?356.0 Vitamin?D?(Calcitriol)?Oral?(mcg) ??08/12/2022:?0.50 ??08/10/2022:?0.50 ??08/07/2022:?0.50 NUTRITION?ASSESSMENT Albumin,?Potassium ??08/03/2022:?3.8,?6.0 ??07/06/2022:?4.0,?4.3 ??06/08/2022:?3.5,?4.5 ?? eNPCR ??08/03/2022:?1.06 ??07/06/2022:?0.95 ??06/08/2022:?0.87 DIAGNOSIS Chief?Complaint:?N18.6?End?stage?renal?disease Patient?data?updated?08/19/2022?at?12:52?PM Signed?By:?Lesa,?Simi,?HAND STAMPER??on?08/19/2022?12:52:58 PM END OF DOCUMENT
--- OUTSIDE RECORDS SUMMARY | 2023-12-28 16:34 | XMS_ITS ---
Author Name Too Morgan Address [address] [place] [id number] Phone [phone] Organization [facility] e, NA DOCUMENT DISCLAIMER Multiple document versions may exist, please be sure you review the latest version. The information in the [facility] Progress Note Document represents a providers documented clinical note containing certain health and medical information. It may not contain the complete medical history for the patient and should be independently verified. The represented time in the document is Eastern Time PROVIDER ROUNDING NOTE BASIC Patient:?SINDI?FERNANDA,?1960,?62y,?M Dialysis?Location:?[facility] Attending?Video Poker Floorman:?Too?Eddie Service?Date:?11/17/2022 Service?Provider:?Too?Eddie,? I?met?face?to?face?with?the?patient?today. OVERVIEW The?patient?presented?with?ESRD?on?dialysis Primary?cause?of?renal?failure:?Type?2?diabetes?mellitus&#16 0;with?diabetic?chronic?kidney?disease Comments:?11/17?no?cramps?with?increase?EDW DIALYSIS?PRESCRIPTION ??IHD?3x?Week?Start?date:?11/10/22 ??Dialyzer:?180NRe?Optiflux ??BFR:?450 ??DFR:?Manual?500 ??Potassium:?2.0 ??Sodium:?137 ??EDW:?98 ??Duration:?4:00 ??Calcium:?2.5 ??Bicarb:?35 ??Rx?updated?on:?11/08/2022 TREATMENT?ASSESSMENT BP?Stand?Pre ??11/12/2022:?158/77 BP?Sit?Pre ??11/15/2022:?209/91 ??11/12/2022:?145/66 ??11/10/2022:?184/76 BP?Stand?Post ??11/15/2022:?130/69 ??11/12/2022:?114/54 ??11/10/2022:?125/54 BP?Sit?Post ??11/15/2022:?139/70 ??11/12/2022:?150/76 ??11/10/2022:?144/66 Tx?Duration ??11/15/2022:?4:09 ??11/12/2022:?3:56 ??11/10/2022:?3:51 Missed?Treatments 0?-?last?30?days 0?-?last?60?days FLUID?ASSESSMENT EDW?(kg) ??11/15/2022:?98.0 ??11/12/2022:?98.0 ??11/10/2022:?98.0 Weight?Pre?(kg) ??11/15/2022:?102.0 ??11/12/2022:?100.7 ??11/10/2022:?100.7 Weight?Post?(kg) ??11/15/2022:?98.0 ??11/12/2022:?98.2 ??11/10/2022:?97.7 PWV?(kg) ??11/15/2022:?0.0 ??11/12/2022:?0.2 ??11/10/2022:?-0.3 UF?Rate?(mL/kg/hr) ??11/15/2022:?9.8 ??11/12/2022:?6.5 ??11/10/2022:?8 ADEQUACY?ASSESSMENT spKt/V,?URR ??11/03/2022:?1.47,?72.0 ??10/04/2022:?1.62,?74.0 ??09/22/2022:?1.27,?67.0 ACCESS?ASSESSMENT ??Access?Type:?AVFistula ??Access?SubType:?Standard ??Access?Status:?Active?(In?Use)?-?09/14/2017 ??Access?Location:?Left?Forearm ??Created:?04/13/2017 Flow ??09/02/2022:?903 ??08/05/2022:?950 ??07/01/2022:?1348 ANEMIA?ASSESSMENT HGB,?TSAT ??11/08/2022:?10.7,?- ??11/03/2022:?11.3,?38.0 ??10/25/2022:?10.5,?- ?? Ferritin ??11/03/2022:?1068.0 ??10/04/2022:?1211.0 ??09/22/2022:?1113.0 Mircera,?IVP?(mcg) ??11/12/2022:?75 ??10/15/2022:?75 ??09/18/2022:?30 Iron?Sucrose?(Venofer)?(mg) ??11/12/2022:?50 ??10/01/2022:?50 ??09/24/2022:?50 BMM?ASSESSMENT Phosphorus?elevated.?Counseled?pt?on?meds?adherence.? Phosphorus,?Calcium ??11/08/2022:?-,?8.5 ??11/03/2022:?6.5,?8.4 ??10/25/2022:?-,?8.5 ?? PTH,?Intact ??11/03/2022:?413.0 ??10/04/2022:?524.0 ??09/22/2022:?528.0 Vitamin?D?(Calcitriol)?Oral?(mcg) ??11/15/2022:?0.50 ??11/12/2022:?0.50 ??11/10/2022:?0.50 NUTRITION?ASSESSMENT Albumin,?Potassium ??11/03/2022:?4.4,?4.8 ??10/04/2022:?3.9,?4.2 ??09/22/2022:?4.2,?4.5 ?? eNPCR ??11/03/2022:?0.98 ??10/04/2022:?0.94 ??08/31/2022:?0.9 Patient?data?updated?11/17/2022?at?9:06?AM Signed?By:?Eddie,?Too,???on?11/17/2022?9:08:23?AM END OF DOCUMENT
--- OUTSIDE RECORDS SUMMARY | 2023-12-28 16:34 | XMS_ITS ---
Author Name Simi Mcfadden Address [address] [place] [id number] Phone [phone] Organization [facility] e, NA DOCUMENT DISCLAIMER Multiple document versions may exist, please be sure you review the latest version. The information in the [facility] Progress Note Document represents a providers documented clinical note containing certain health and medical information. It may not contain the complete medical history for the patient and should be independently verified. The represented time in the document is Eastern Time PROVIDER ROUNDING NOTE BASIC Patient:?SINDI?FERNANDA,?1960,?63y,?M Dialysis?Location:?[facility] Attending?Breast Puller:?Too?Eddie Service?Date:?11/02/2023 Service?Provider:?Simi?Lesa,?JUTE BAG CUTTING MACHINE OPERATOR I?met?face?to?face?with?the?patient?today. OVERVIEW The?patient?presented?with?ESRD?on?dialysis Primary?cause?of?renal?failure:?Type?2?diabetes?mellitus&#16 0;with?diabetic?chronic?kidney?disease Comments:?11/02/23?-?Stable?dialysis?treatment?with?no?acute&# 160;issues?or?complaints. 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 LAST?HOSPITALIZATION Discharge?Diagnosis:?R78.81?Bacteremia Admission?Date?08/15/22 Discharge?Date?08/18/22 DIALYSIS?PRESCRIPTION ??IHD?3x?Week?Start?date:?09/28/23 ??Dialyzer:?180NRe?Optiflux ??BFR:?450 ??DFR:?Manual?800 ??Potassium:?2.0 ??Sodium:?137 ??EDW:?98.5 ??Duration:?4:00 ??Calcium:?2.5 ??Bicarb:?35 ??Rx?updated?on:?09/27/2023 TREATMENT?ASSESSMENT BP?Stand?Pre ??10/31/2023:?129/55 ??10/28/2023:?119/57 ??10/26/2023:?118/50 BP?Sit?Pre ??10/31/2023:?130/63 ??10/28/2023:?123/55 ??10/26/2023:?130/62 BP?Stand?Post ??10/31/2023:?106/48 ??10/28/2023:?116/58 ??10/26/2023:?133/40 BP?Sit?Post ??10/31/2023:?159/79 ??10/28/2023:?148/67 ??10/26/2023:?108/71 Tx?Duration ??10/31/2023:?4:08 ??10/28/2023:?4:05 ??10/26/2023:?4:03 Missed?Treatments 0?-?last?30?days 1?-?last?60?days 5/20?-?recent FLUID?ASSESSMENT EDW?(kg) ??10/31/2023:?98.5 ??10/28/2023:?98.5 ??10/26/2023:?98.5 Weight?Pre?(kg) ??10/31/2023:?103.1 ??10/28/2023:?101.5 ??10/26/2023:?102.6 Weight?Post?(kg) ??10/31/2023:?99.9 ??10/28/2023:?99.2 ??10/26/2023:?99.1 PWV?(kg) ??10/31/2023:?1.4 ??10/28/2023:?0.7 ??10/26/2023:?0.6 UF?Rate?(mL/kg/hr) ??10/31/2023:?7.7 ??10/28/2023:?5.7 ??10/26/2023:?8.7 ADEQUACY?ASSESSMENT spKt/V,?URR ??10/03/2023:?1.88,?79.0 ??09/05/2023:?1.28,?64.0 ??08/01/2023:?1.92,?80.0 ACCESS?ASSESSMENT ??Access?Type:?AVFistula ??Access?SubType:?Standard ??Access?Status:?Active?(In?Use)?-?09/14/2017 ??Access?Location:?Left?Forearm ??Created:?04/13/2017 Flow ??10/05/2023:?1427 ??09/07/2023:?1112 ??08/03/2023:?841 ANEMIA?ASSESSMENT HGB ??10/31/2023:?9.1 ??10/24/2023:?9.2 ??10/17/2023:?10.0 ?? Ferritin ??10/31/2023:?1275.0 ??10/10/2023:?1162.0 ??09/05/2023:?732.0 Mircera,?IVP?(mcg) ??10/21/2023:?60 ??08/26/2023:?75 ??08/12/2023:?75 Iron?Sucrose?(Venofer)?(mg) ??10/28/2023:?50 ??10/21/2023:?50 ??10/14/2023:?50 BMM?ASSESSMENT PTH,?Intact ??10/31/2023:?449.0 ??10/03/2023:?459.0 ??09/05/2023:?512.0 ?? Calcium,?Phosphorus ??10/24/2023:?8.5,?- ??10/17/2023:?8.4,?- ??10/10/2023:?8.6,?5.2 Vitamin?D?(Calcitriol)?Oral?(mcg) ??10/31/2023:?0.75 ??10/28/2023:?0.75 ??10/26/2023:?0.75 NUTRITION?ASSESSMENT Potassium,?Albumin ??10/10/2023:?5.8,?- ??10/03/2023:?-,?3.9 ??09/26/2023:?5.1,?- ?? eNPCR ??10/03/2023:?1.06 ??09/05/2023:?1.06 ??08/01/2023:?1.08 DIAGNOSIS Chief?Complaint:?N18.6?End?stage?renal?disease Patient?data?updated?11/02/2023?at?9:21?AM Signed?By:?Lesa,?Simi,?JUTE BAG CUTTING MACHINE OPERATOR??on?11/02/2023?9:21:33?AM END OF DOCUMENT
--- OUTSIDE RECORDS SUMMARY | 2023-12-28 16:34 | XMS_ITS ---
Author Name Too Morgan Address [address] [place] [id number] Phone [phone] Organization [facility] e, NA DOCUMENT DISCLAIMER Multiple document versions may exist, please be sure you review the latest version. The information in the [facility] Progress Note Document represents a providers documented clinical note containing certain health and medical information. It may not contain the complete medical history for the patient and should be independently verified. The represented time in the document is Eastern Time PROVIDER ROUNDING NOTE COMPREHENSIVE Patient:?SINDI?FERNANDA,?1960,?62y,?M Dialysis?Location:?[facility] Attending?Remote Sensing Advisor:?Too?Eddie Service?Date:?01/26/2023 Service?Provider:?Too?Eddie,? I?met?face?to?face?with?the?patient?today. OVERVIEW The?patient?presented?with?ESRD?on?dialysis Primary?cause?of?renal?failure:?Type?2?diabetes?mellitus&#16 0;with?diabetic?chronic?kidney?disease Comments:? 01/26?Recovering?from?COVID/?no?significant?sequellae 01/17?Isidro?is?recovering?from?Covid.?He?had?significant? muscle?aches?and?pains?but?seems?to?be?improving.?His&# 160;blood?pressure?is?now?high?again?and?I?sent?in&#160 ;a?prescription?for?amlodipine?5?mg?daily?but?she?will start?this?week. Medications?and?labs?reviewed. LAST?HOSPITALIZATION Discharge?Diagnosis:?R78.81?Bacteremia Admission?Date?08/15/22 Discharge?Date?08/18/22 DIALYSIS?PRESCRIPTION ??IHD?3x?Week?Start?date:?11/10/22 ??Dialyzer:?180NRe?Optiflux ??BFR:?450 ??DFR:?Manual?500 ??Potassium:?2.0 ??Sodium:?137 ??EDW:?98 ??Duration:?4:00 ??Calcium:?2.5 ??Bicarb:?35 ??Rx?updated?on:?11/08/2022 TREATMENT?ASSESSMENT Blood?pressure?controlled.?No?changes?indicated.? BP?Sit?Pre ??01/24/2023:?137/66 ??01/21/2023:?147/64 ??01/19/2023:?131/65 BP?Stand?Post ??01/24/2023:?184/69 BP?Sit?Post ??01/24/2023:?165/85 ??01/21/2023:?143/60 ??01/19/2023:?158/80 Tx?Duration ??01/24/2023:?4:02 ??01/21/2023:?4:04 ??01/19/2023:?4:09 Missed?Treatments 0?-?last?30?days 0?-?last?60?days FLUID?ASSESSMENT Fluid?status?acceptable.?Interdialytic?weight?gain?acceptable.?No ?changes?indicated.? EDW?(kg) ??01/24/2023:?98.0 ??01/21/2023:?98.0 ??01/19/2023:?98.0 Weight?Pre?(kg) ??01/24/2023:?102.5 ??01/21/2023:?102.2 ??01/19/2023:?101.3 Weight?Post?(kg) ??01/24/2023:?98.3 ??01/21/2023:?98.6 ??01/19/2023:?98.7 PWV?(kg) ??01/24/2023:?0.3 ??01/21/2023:?0.6 ??01/19/2023:?0.7 UF?Rate?(mL/kg/hr) ??01/24/2023:?10.6 ??01/21/2023:?9 ??01/19/2023:?6.3 ADEQUACY?ASSESSMENT Adequacy?target?met.?Prescription?compliance?acceptable.? spKt/V,?URR ??01/03/2023:?1.63,?75.0 ??12/06/2022:?1.44,?71.0 ??11/03/2022:?1.47,?72.0 ACCESS?ASSESSMENT ??Access?Type:?AVFistula ??Access?SubType:?Standard ??Access?Status:?Active?(In?Use)?-?09/14/2017 ??Access?Location:?Left?Forearm ??Created:?04/13/2017 Flow ??01/05/2023:?835 ??12/08/2022:?1039 ??09/02/2022:?903 Vascular?access?reviewed.?Current?access?is?permanent?and?functioning?well. ANEMIA?ASSESSMENT HGB?at?goal.?Iron?parameters?acceptable.?MICHEL?dose?adequate.& #160;No?changes?indicated.? HGB,?TSAT ??01/17/2023:?10.0,?- ??01/10/2023:?10.2,?- ??01/03/2023:?10.3,?28.0 ?? Ferritin ??01/03/2023:?908.0 ??12/06/2022:?871.0 ??11/03/2022:?1068.0 Mircera,?IVP?(mcg) ??01/07/2023:?75 ??12/10/2022:?75 ??11/12/2022:?75 Iron?Sucrose?(Venofer)?(mg) ??01/21/2023:?50 ??01/14/2023:?50 ??01/07/2023:?50 BMM?ASSESSMENT PTH?controlled.?Calcium?controlled.?Phosphorus?elevated.?BMM?meds ?adherence?not?acceptable.?Counseled?pt?on?meds?adherence.&# 160;Medications?adjusted.? Phosphorus,?Calcium ??01/17/2023:?-,?8.2 ??01/10/2023:?-,?7.9 ??01/03/2023:?6.7,?8.3 ?? PTH,?Intact ??01/03/2023:?572.0 ??12/06/2022:?565.0 ??11/03/2022:?413.0 Vitamin?D?(Calcitriol)?Oral?(mcg) ??01/24/2023:?0.75 ??01/21/2023:?0.75 ??01/19/2023:?0.75 NUTRITION?ASSESSMENT Potassium?controlled.?Albumin?controlled.?No?changes?indicated.? Albumin,?Potassium ??01/03/2023:?4.1,?5.0 ??12/06/2022:?4.1,?4.3 ??11/03/2022:?4.4,?4.8 ?? eNPCR ??01/03/2023:?0.94 ??12/06/2022:?1.05 ??11/03/2022:?0.98 PHYSICAL?EXAM Exam?Performed.?Vital?Signs?Reviewed.?Lungs?-?Clear. DIAGNOSIS Chief?Complaint:?N18.6?End?stage?renal?disease Patient?data?updated?01/26/2023?at?9:37?AM Signed?By:?Eddie,?Too,???on?01/26/2023?9:39:34?AM END OF DOCUMENT
--- OUTSIDE RECORDS SUMMARY | 2023-12-28 16:34 | XMS_ITS ---
Author Name Too Morgan Address [address] [place] [address] Phone [phone] Organization [facility] e, NA DOCUMENT DISCLAIMER Multiple document versions may exist, please be sure you review the latest version. The information in the [facility] Progress Note Document represents a providers documented clinical note containing certain health and medical information. It may not contain the complete medical history for the patient and should be independently verified. The represented time in the document is Eastern Time PROVIDER ROUNDING NOTE COMP HD PROVIDER?ROUNDING?NOTE?COMP?HD Clinic:?[address] [place] [address].?[facility] Visit?date:?09/22/2022?00:00?Modality/setting:?IHD SINDI?MICHAEL?-?Chart?#:?[id number] Method?of?Interaction:?Face?to?face Date?of?Interaction:?09/21/2023 ?-?Patient?is?stable ?-?High?weight?gain?noted ?-?Optimal?weight?addressed?with?patient?and?staff. ?-?Medications?and?labs?reviewed. Prior?Treatment:?09/16/2023? Dialyzer:?180NRe?Optiflux? Dialysate:?2.0?K,?2.5 Ca,?1.0?Mg,?100?Dextrose?(G2251)? Prescribed?Time:?4:0?Avg?BFR:?& #160;??350?Wt?Gain?(kg):?3.10? Actual?Time:?04:09?Avg?DFR:?500?&#16 0;EDW?(kg):?98.5? Volume?Management?Comments: 03/18/2022?-?EDW?decreased?to?100?based?on?recent?post-rx?weights.?04/27/2022 -?Euvolemic.??Achieving?target?weight.??No?change.?&#16 0;??08/05/2022?-?Intermittent high?gains.??Usually?achieves?target?weight.?05/20/2022?-?Discussed?high gains.??Will?decrease?EDW?to?98.5.?07/20/2022&# 160;-?Discussed?high?gains.??EDW recently?increased?due?to?inability?to?reach?target. Adequacy ?spKt/V?eKdrt/V?&#160 ; ???OLC?(Del)?spKtv?URR?%?1.28?09/05/23?? ?1.13?09/05/23?? ?1.42?0 09/16/23?? ?64?09/05/23? ?1.92?08/01/23?? ?1.70?08/01/23?? ?1.32?0 09/14/23?? ?80?08/01/23? ?1.72?07/04/23?? ?1.52?07/04/23?? ?1.40?0 09/12/23?? ?77?07/04/23? ?Potassium,?Serum?mEq/L?Bicarbonate?mEq/L??&# 160;?Creatinine?mg/dL?5.5?09/05/23? 21?09/05/23?&# 160;?-?4.6?08/01/23? 25?08/01/23?&# 160;?-?5.0?07/04/23? 24?07/04/23?&# 160;?-?-?Adequacy?parameters?reviewed ?Sitting?BP?Pre?Sitting BP?Post?Systolic/Diastolic?Systolic/Diastolic?175?/?79??09/16/23?92?/?50? 09/16/23?159?/?79??09/14/23?147?/?73??09/14/23?154?/?78??09/12/23?124?/?62??09/12/23?? Prescription?Compliance ?-?Patient?is?not?adhering?to?prescription 04/27/2022?-?Will?have?patient?bring?meds?and?adjust?antihypertensives?as needed.?08/05/2022?-?Will?recheck;?typically?not elevated. Anemia ?HGB?g/dL? Transferrin?Sat.?(Calc)?%?Ferritin?ng/mL&#160 ;?12.1?09/12/23?22?09/05/23?732 ?09/05/23?? ?11.4?09/05/23?52?08/01/23?1221 ?08/01/23?? ?11.3?08/29/23?73?07/04/23?1234 ?07/04/23?? MICHEL?Administrations ??0?mcg?Mircera?09/09/23 ??75?mcg?Mircera?08/26/23 ??75?mcg?Mircera?08/12/23 IV?Iron?Administrations ??100?mg?Venofer?09/16/23 ??100?mg?Venofer?09/14/23 ??100?mg?Venofer?09/12/23 ?-?Anemia?targets?met Bone?and?Mineral?Metabolism ??Calcium,?Total?mg/dL?? Calcium,?Corrected?mg/dL ?&#1 60;??Phosphorous?mg/dL??? PTH-Intact,?Plasma?pg/mL ??8.3?09/12/23? 8.0?09/05/23?7.4&#16 0;?09/05/23?512?09/05/23?8.1?09/05/23? 8.6?08/01/23?5.2&#16 0;?08/01/23?411?08/01/23?8.5?08/29/23? 8.7?07/04/23?6.0&#16 0;?07/04/23?440?07/04/23?Vitamin?D?25?Hydroxy?ng/mL? ?Vitamin?D?Analogue? Administrations?Calcimimetics?10.3?07/04/23?0.75?mcg?Vitamin?D??09/16/23??& #160;?-?25.1?04/04/23?0.75?mcg?Vitamin?D??09/14/23??& #160;?-?12.4?01/03/23?0.75?mcg?Vitamin?D??09/12/23??& #160;?-? PTH ?-?PTH?elevated ?-?Bone?and?mineral?metabolism?parameters?reviewed ?-?Calcium?controlled ?-?Hyperphosphatemia?noted 05/20/2022?-?Forgets?binder.??Discussed?that,?as?well?as?high-phos?foods.? Dietitian?will?give?additional?handouts.?08/05/2022?-?Will?increase calcitriol?to?0.75mcg?qrx. Nutrition ?Albumin?g/dL? eNPCR?g/kg/day?4.1?09/05/23?? ?1.06?09/05/23?? ?4.2?08/01/23?? ?1.08?08/01/23?? ?4.0?07/04/23?? ?0.92?07/04/23?? ?-?Nutrition?reviewed Home?Medications ?Acetaminophen?Extra?Strength?(acetaminophen) 500?mg,?oral,?2?tablet?every?six?hours ??aspirin?(aspirin) 325?mg,?oral,?1/2?tablet?once?a?day ??atorvastatin?(atorvastatin) 40?mg,?oral,?1?tablet?once?a?day ??Basaglar?KwikPen?U-100?Insulin?(insulin?glargine) 100?unit/mL?(3?mL),?subQ, [takes?45?units] ??Breo?Ellipta?(fluticasone?furoate-vilanterol) 100-25?mcg/dose,?inhl, ??gabapentin?(gabapentin) 300?mg,?oral,?1?capsule?twice?a?day ??Norvasc?(amlodipine) 5?mg,?oral,?1?tablet?once?a?day ??Novolog?U-100?Insulin?aspart?(insulin?aspart?u-100) 100?unit/mL,?subQ,?2?unit?as?directed [Per?pump?6?clicks?(12?units)?before?meals] ??Renal?Caps?(b?complex?with?c?20-folic?acid) 1?mg,?oral,?1?capsule?once?a?day ??Renvela?(sevelamer?carbonate) 800?mg,?oral,?3?tablet?three?times?a?day [1-2?with?snacks] ??sertraline?(sertraline) 50?mg,?oral,?1?tablet?once?a?day ??tamsulosin?(tamsulosin) 0.4?mg,?oral,?1?capsule?every?night Vascular?Access?-?Active/Maturing ?Type?Position/Location?Status?Access?ID?AVFistula-Standard?Forearm-Left?Activ e?(In?Use)?[id number] ?-?-?&# 160;?-? -?-?-?&# 160;?-? -? Access?Flows ??1112mL?per?min?09/07/23 ??841mL?per?min?08/03/23 ??842mL?per?min?07/06/23 ?-?Vascular?access?reviewed ?-?Current?access?is?functioning?well. Infection?-?Signs?and?Symptoms?Tracking Most?Recent?In-center?Antibiotic?Order 08/19/2022?Vancomycin?HCl?750?mg?IV?Every?Treatment?x?5 ?Times,?Clinic?4181-?Entered?By?WilliamsChel Exam ?-?Vital?signs?reviewed Other ?-?AVF/AVG?positive?thrill/bruit Transplant?Status Topic Exploring?Alternative?Treatment?Options: Kidney?Transplant ?Person?Taught: ?-?Patient ?Additional?Education?Required:?No ?Date?Given:?04/29/2022 Interest?and?Eligibility?(If?changes?are?made,?Please?notify?SW?via?alert?below) ?Date?of?discussion?from?transplant?assessment:?12/06/2022 ?Patient?already?on?transplant?list??No ?Patient?interested?in?transplantation??Not?interested?-?other ?If?undecided?or?not?interested?-?other,?why? ??Not?interested ?Has?patient's?physician?identified?one?or?more?exclusions per?the ?Contraindication?list?provided?by?the?transplant?center? ??Yes ?Reason?for?non-referral: ??Patient?declined?referral ?Transplant?Comments: ??12/06:?Pt?continues?to?express?that?he?is?not&#160 ;interested?in?transplant?at?this time. 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 ??SW?hasn't?been?made?aware?pt's?changed?his?mind regarding?transplant ?[place] Tobacco?Cessation ??Tobacco?use:?Never?used Alerts Alert?comments: Has?transplant?appointment?January?7,?2020 Too?Eddie,? END OF DOCUMENT
--- OUTSIDE RECORDS SUMMARY | 2023-12-28 16:34 | XMS_ITS ---
Author Name Simi Mcfadden Address [address] [place] [address] Phone [phone] Organization [facility]ney [facility] e, NA DOCUMENT DISCLAIMER Multiple document versions may exist, please be sure you review the latest version. The information in the [facility] Progress Note Document represents a providers documented clinical note containing certain health and medical information. It may not contain the complete medical history for the patient and should be independently verified. The represented time in the document is Eastern Time PROVIDER ROUNDING NOTE BASIC Patient:?SINDI?FERNANDA,?1960,?63y,?M Dialysis?Location:?[facility] Attending?Supervisor Inspection:?Too?Eddie Service?Date:?04/18/2023 Service?Provider:?Simi?Lesa,?MEDICAL DOCTOR MD/MEDICAL DIRECTOR I?met?face?to?face?with?the?patient?today. OVERVIEW The?patient?presented?with?ESRD?on?dialysis Primary?cause?of?renal?failure:?Type?2?diabetes?mellitus&#16 0;with?diabetic?chronic?kidney?disease Comments:?04/18/23?-?Area?on?knee?slowly?healing?with?no?sings?of?infection.? 04/08/23?-?Red?area?on?left?knee,?approx?1?in&#160 ;diameter?with?open?area?in?the?middle?that?appears?to& #160;be?healing.?No?drainage.?Pt?states?he?hit?his?knee ?on?something?and?split?it?open.?RN?has?marked?bor ders?of?redness?and?will?check?each?treatment.? 04/04/23?-?Stable?treatment. 03/21?Has?callus?ball?of?left?foot/advised?to?get?refer ral?to?surgery?via?PCP?for?debridement.?If?not?successf ul?will?refer?to?[facility]?vascular?surgery.?Access?ok Medications?and?labs?reviewed. LAST?HOSPITALIZATION Discharge?Diagnosis:?R78.81?Bacteremia Admission?Date?08/15/22 Discharge?Date?08/18/22 DIALYSIS?PRESCRIPTION ??IHD?3x?Week?Start?date:?04/04/23 ??Dialyzer:?180NRe?Optiflux ??BFR:?450 ??DFR:?Manual?500 ??Potassium:?2.0 ??Sodium:?137 ??EDW:?98.5 ??Duration:?4:00 ??Calcium:?2.5 ??Bicarb:?35 ??Rx?updated?on:?04/04/2023 TREATMENT?ASSESSMENT BP?Stand?Pre ??04/15/2023:?183/101 ??04/13/2023:?139/68 ??04/11/2023:?167/67 BP?Sit?Pre ??04/15/2023:?154/59 ??04/13/2023:?172/74 ??04/11/2023:?175/94 BP?Stand?Post ??04/15/2023:?152/70 ??04/13/2023:?133/52 ??04/11/2023:?130/61 BP?Sit?Post ??04/15/2023:?162/73 ??04/13/2023:?159/78 ??04/11/2023:?169/89 Tx?Duration ??04/15/2023:?4:15 ??04/13/2023:?4:14 ??04/11/2023:?4:05 Missed?Treatments 0?-?last?30?days 0?-?last?60?days FLUID?ASSESSMENT EDW?(kg) ??04/15/2023:?98.5 ??04/13/2023:?98.5 ??04/11/2023:?98.5 Weight?Pre?(kg) ??04/15/2023:?100.8 ??04/13/2023:?101.7 ??04/11/2023:?102.0 Weight?Post?(kg) ??04/15/2023:?98.0 ??04/13/2023:?98.1 ??04/11/2023:?98.3 PWV?(kg) ??04/15/2023:?-0.5 ??04/13/2023:?-0.4 ??04/11/2023:?-0.2 UF?Rate?(mL/kg/hr) ??04/15/2023:?6.7 ??04/13/2023:?8.7 ??04/11/2023:?9.2 ADEQUACY?ASSESSMENT spKt/V,?URR ??04/04/2023:?1.6,?74.0 ??03/07/2023:?1.79,?78.0 ??01/31/2023:?1.71,?76.0 ACCESS?ASSESSMENT ??Access?Type:?AVFistula ??Access?SubType:?Standard ??Access?Status:?Active?(In?Use)?-?09/14/2017 ??Access?Location:?Left?Forearm ??Created:?04/13/2017 Flow ??04/06/2023:?973 ??03/09/2023:?958 ??01/05/2023:?835 ANEMIA?ASSESSMENT HGB,?TSAT ??04/11/2023:?10.5,?- ??04/04/2023:?11.1,?58.0 ??03/28/2023:?11.1,?- ?? Ferritin ??04/04/2023:?863.0 ??03/07/2023:?726.0 ??01/31/2023:?883.0 Mircera,?IVP?(mcg) ??04/08/2023:?75 ??02/25/2023:?75 ??02/11/2023:?75 Iron?Sucrose?(Venofer)?(mg) ??04/15/2023:?50 ??04/08/2023:?50 ??2023:?50 BMM?ASSESSMENT Phosphorus,?Calcium ??04/11/2023:?-,?8.3 ??04/04/2023:?4.2,?9.0 ??03/28/2023:?-,?8.4 ?? PTH,?Intact ??04/04/2023:?366.0 ??03/07/2023:?429.0 ??01/31/2023:?576.0 Vitamin?D?(Calcitriol)?Oral?(mcg) ??04/15/2023:?0.75 ??04/13/2023:?0.75 ??04/11/2023:?0.75 NUTRITION?ASSESSMENT Albumin,?Potassium ??04/04/2023:?4.3,?5.0 ??03/07/2023:?4.2,?5.2 ??01/31/2023:?4.1,?5.0 ?? eNPCR ??04/04/2023:?1.14 ??03/07/2023:?1.21 ??01/31/2023:?0.86 DIAGNOSIS Chief?Complaint:?N18.6?End?stage?renal?disease Patient?data?updated?04/18/2023?at?9:47?AM Signed?By:?Lesa,?Simi,?MEDICAL DOCTOR MD/MEDICAL DIRECTOR??on?04/18/2023?9:51:59?AM END OF DOCUMENT
--- OUTSIDE RECORDS SUMMARY | 2023-12-28 16:34 | XMS_ITS ---
Author Name Cynthia Gerber Address [address] [place] [address] Phone [phone] Organization [facility] e, NA DOCUMENT DISCLAIMER Multiple document versions may exist, please be sure you review the latest version. The information in the [facility] Progress Note Document represents a providers documented clinical note containing certain health and medical information. It may not contain the complete medical history for the patient and should be independently verified. The represented time in the document is Eastern Time PROVIDER ROUNDING NOTE COMP Provider?Rounding?Note?Comp?-?SINDI?FERNANDA?-?Chart?#:?[id number] Patient?was?seen?on:?06/22/2022 Was?Patient?seen?today?:?06/22/2022 Method?of?Interaction:?Face?to?face Date?of?Interaction:?06/22/2022 Patient?is?stable ?-?High?weight?gain?noted? ?-?Medications?and?labs?reviewed.? Prior?Treatment:?06/19/2022? Dialyzer:?180NRe?Optiflux? Dialysate:?2.0?K,?2.5 Ca,?1.0?Mg,?100?Dextrose?(G2251)? Actual?Time:?04:02?Prescribed?Time:?4:0? Avg?BFR:?450?Avg?DFR:?500? Wt?Gain?(kg):?2.90?EDW?(kg):?96.50? post?Wt?(kg):? 03/18/2022?-?EDW?decreased?to?100?based?on?recent?post- rx?weights.?04/27/2022?-?Euvolemic.??Achieving? target?weight.??No?change.?05/20/2022?-?Discuss ed?high?gains.??Will?decrease?EDW?to?98.5. VITALS ?Date:?Temperature:?Pulse:?Respirations:?BP?(Sitting):?BP?(Standing):?Weight:? Volume?Management?Comments ADEQUACY ?spKt/V?eKdrt/V?OLC?(Del)?spKtv?1.71?06/08/22 ???1.53 ?06/08/22 ???1.65?06/19/22 ???1.73?05/11/22 ???1.56 ?05/11/22 ???1.59?06/17/22 ???1.61?04/06/22 ???1.43 ?04/06/22 ???1.56?06/15/22 ?URR?Potassium,?Serum?&#160 ;?Bicarbonate?Creatinine?%?mEq/L?mEq/L?&#16 0;?mg/dL ?76?06/08/22 ?? 4.5?06/08/22 ???24?06/08/22 ?76?05/11/22 ?? 5.3?05/11/22 ???26?05/11/22 ?74?04/06/22 ?? 5.0?04/06/22 ???28?04/06/22 ?-?Adequacy?parameters?reviewed? Adequacy ?-?Adequacy?target?met?Sitting?BP?Pre?Sitting BP?Post?Standing?BP?Post?172?/?84??06/19/22?122?/?72??06/19/22?118?/?66??06/19/22?141?/?73??06/17/22?115?/?85??06/17/22?101?/?79??06/17/22?141?/?90??06/15/22?139?/?96??06/15/22?137?/?70??06/15/22? Blood?Pressure ?-?Blood?pressure?controlled? Fluid?Status ?-?Fluid?status?not?acceptable? Prescription?Compliance ?-?Prescription?compliance?acceptable? ?-?Potassium?controlled? 04/27/2022?-?Will?have?patient?bring?meds?and?adjust?an tihypertensives?as?needed. VASCULAR?ACCESS ?Type?Exit?Site?&#1 60;??Status?Access?ID?AVFistula-Standard?Forearm-Left?&#160 ;?Active?(In?Use)?[id number]? Access?Flows ??1029mL?per?min?06/03/22 ??1027mL?per?min?05/08/22 ??1293mL?per?min?05/06/22 ??-?Vascular?access?reviewed? ??-?Current?access?is?functioning?well.? Most?Recent?In-center?Antibiotic?Order 11/29/2019?Vancomycin?HCl?1000?mg?IV?During?Dialysis?Once,&# 160;Clinic?4291-?Entered?By?HBMcalister ANEMIA ?HGB? Transferrin?Sat.?(Calc) ?Ferritin?g/dL?%?ng/m L?10.6?06/15/22? ??54?06/08/22?1599?06/08/22? ??10.3?06/08/22? ??50?05/11/22?1124?05/11/22? ??11.0?06/01/22? ??31?04/06/22?823?04/06/22? Erythropoietin-Stimulating?Agents?(MICHEL)?Administrations ??50?mcg?Mircera?06/19/22 ??0?mcg?Mircera?06/05/22 ??0?mcg?Mircera?05/22/22 IV?Iron?Administrations ??0?mg?Venofer?06/19/22 ??50?mg?Venofer?06/12/22 ??0?mg?Venofer?06/05/22 ?-?Anemia?reviewed? ?-?Anemia?targets?met? BONE?AND?MINERAL?METABOLISM ?Calcium,?Total?Calcium,?Corrected?Phosphorous? &#160 ;?PTH-Intact,?Plasma?mg/dL?mg/dL?mg/dL?pg/mL?8.5?06/15/22? ??8.5?06/08/22? ??5.6?&#16 0;???06/08/22? ??356?06/08/22? ??8.1?06/08/22? ??8.5?05/11/22? ??6.7?&#16 0;???05/11/22? ??344?05/11/22? ??8.8?06/01/22? ??8.3?04/06/22? ??5.2?&#16 0;???04/06/22? ??447?04/06/22? Vitamin?D?25?Hydroxy ??15.9?05/11/22 ??15.3?05/12/21 ??13.4?05/13/20 Vitamin?D?Analogue?Administrations ??0.5?mcg?Vitamin?D?(?06/19/22 ??0.5?mcg?Vitamin?D?(?06/17/22 ??0.5?mcg?Vitamin?D?(?06/15/22 ?-?Bone?and?mineral?metabolism?parameters?reviewed? ?-?Calcium?controlled? ?-?Hyperphosphatemia?noted? PTH ?-?PTH?within?target? 05/20/2022?-?Forgets?binder.??Discussed?that,?as?well?a s?high-phos?foods.??Dietitian?will?give?additional?handouts. NUTRITION ?Albumin?eNPCR?g/dL?g/kg/day?3.5?06/08/22? ??0.87 ?06/08/22? ??4.3?05/11/22? ??1.15 ?05/11/22? ??4.1?04/06/22? ??0.97 ?04/06/22? HOME?MEDICATIONS ?Acetaminophen?Extra?Strength?(acetaminophen)??500?mg,?oral, ?2?tablet?every?six?hours ?aspirin?(aspirin)??325?mg,?oral,?1?tablet?once?a day ?atorvastatin?(atorvastatin)??40?mg,?oral,?1?tablet?once?a?day ?bumetanide?(bumetanide)??1?mg,?oral,?2?tablet?twice a?day ?gabapentin?(gabapentin)??300?mg,?oral,?1?capsule?three?times?a?day ?levetiracetam?(levetiracetam)??500?mg,?oral,?1?tablet? once?a?day??[TAKE?ONE?(1)?TABLET(S)?BY?MOUTH?EVERY?MORNING.] ?lidocaine-prilocaine?(lidocaine-prilocaine)??2.5-2.5%,?top,?1?a& #160;small?amount?as?directed??[apply?a?THIN?layer?to&# 160;dialysis?access?1-2?hr?prior?to?dialysis?and?wrap?with?Saran?wrap] ?losartan?(losartan)??50?mg,?oral,?1?tablet?once?a?day ?Novolog?U-100?Insulin?aspart?(insulin?aspart?u-100)??1 00?unit/mL,?subQ,?2?unit?as?directed??[Per?pump?6& #160;clicks?(12?units)?before?meals] ?Renvela?(sevelamer?carbonate)??800?mg,?oral,?1?tablet& #160;three?times?a?day??[one?with?snacks] ?sertraline?(sertraline)??50?mg,?oral,?1?tablet?once a?day EXAM ?-?Vital?signs?reviewed? Pulmonary ?-?LUNGS?-?clear? Cardiovascular ?-?CV?-?Blood?pressure?noted? ?-?CV?-?RRR? Edema ?-?EXT?-?2+?edema? TRANSPLANT?STATUS ?Person?Taught: ??-?Patient? ?Additional?Education?Required:?No ?Date?Given:?04/29/2022 INTEREST?AND?ELIGIBILITY?(If?changes?are?made,?Please?notify?SW?below) ?Date?of?discussion?from?transplant?assessment:?04/29/2022 ?Patient?already?on?transplant?list??No ?Patient?interested?in?transplantation??Not?interested?-?other ?If?undecided?or?not?interested?-?other,?why? ??Not?interested ?Has?patient's?physician?identified?one?or?more?exclusions per?the ?Contraindication?list?provider?by?the?transplant?center? 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 ?Transplant?center/state:?[facility]?[place]?[facility]?HOSP Alerts Has?transplant?appointment?January?7,?2020 Cynthia?Buzz,? END OF DOCUMENT
--- OUTSIDE RECORDS SUMMARY | 2023-12-28 16:34 | XMS_ITS ---
Author Name Simi Mcfadden Address [address] [place] [address] Phone [phone] Organization [facility] e, NA DOCUMENT [...] Eastern Time PROVIDER ROUNDING NOTE BASIC Patient:?SINDI?FERNANDA,?1960,?62y,?M Dialysis?Location:?[facility] Attending?Merchandising Execution Associate:?Cynthia?Buzz Service?Date:?08/10/2022 Service?Provider:?Simi?Lesa,?ROCK DUST SPRAYER I?met?face?to?face?with?the?patient?today. OVERVIEW The?patient?presented?with?ESRD?on?dialysis Primary?cause?of?renal?failure:?Type?2?diabetes?mellitus&#16 0;with?diabetic?chronic?kidney?disease Comments:?08/03/22?-?High?IDWG?discussed?with?pt. 07/27/22?-?Reports?difficulty?managing?blood?sugar?lately,?vargas s?an?appt?with?diabetes?educator?and?PCP?tomorrow.? 06/15/22-Tolerating?HD?well?and?denies?any?new?complaints.? 06/10/22-?Tolerating?HD?well?and?denies?any?new?complaints. Metabolic?and?volume?parameters?reviewed.? Education?provided?on?reviewed?monthly?labs?and?UFG.?No changes?made 05/06/22-?Tolerating?treatment?well.?Denies?any?concerns. 04/20/22?-?Large?IDWG?today.??Discussed?in?detail?with patient.? 04/08/22?-?Increase?calcitriol?to?0.5mcg?for?low?Ca?and& #160;elevated?PTH.?Stable?treatment. 04/01/22?-?Stable?treatment,?no?complaints.??Feeling?well on?off?days. 03/16/22?-?Ending?treatment?below?EDW?with?stable?BP.?& #160;Will?adjust?EDW.??Stable?treatment?today?with?no?complaints. 03/09?Overall?stable/no?acute?issues 05/27/22 Doing?all?right?on?dialysis,?but?feels?dizzy?and?fatigu ed?after?HD,?currently?on?Losartan?and?Amlodipine,?he?w as?asked?to?keep?a?log?of?blood?pressure?and?bring ?it?next?week.?Phos?running?high. 06/01/ Blood?pressure?stable.?He?forgot?to?bring?the?blood?pressure?log.? Medications?and?labs?reviewed. DIALYSIS?PRESCRIPTION ??IHD?3x?Week?Start?date:?07/22/22 ??Dialyzer:?180NRe?Optiflux ??BFR:?450 ??DFR:?Manual?500 ??Potassium:?2.0 ??Sodium:?137 ??EDW:?97 ??Duration:?4:00 ??Calcium:?2.5 ??Bicarb:?35 ??Rx?updated?on:?07/22/2022 TREATMENT?ASSESSMENT BP?Stand?Pre ??08/05/2022:?131/54 BP?Sit?Pre ??08/07/2022:?149/77 ??08/05/2022:?135/68 ??08/03/2022:?104/87 BP?Stand?Post ??08/07/2022:?129/65 BP?Sit?Post ??08/07/2022:?130/84 ??08/05/2022:?119/76 ??08/03/2022:?123/86 Tx?Duration ??08/07/2022:?3:56 ??08/05/2022:?4:03 ??08/03/2022:?4:06 Missed?Treatments 0?-?last?30?days 0?-?last?60?days FLUID?ASSESSMENT EDW?(kg) ??08/07/2022:?97.0 ??08/05/2022:?97.0 ??08/03/2022:?97.0 Weight?Pre?(kg) ??08/07/2022:?99.1 ??08/05/2022:?99.4 ??08/03/2022:?101.7 Weight?Post?(kg) ??08/07/2022:?97.1 ??08/05/2022:?97.0 ??08/03/2022:?98.3 PWV?(kg) ??08/07/2022:?0.1 ??08/05/2022:?0.0 ??08/03/2022:?1.3 UF?Rate?(mL/kg/hr) ??08/07/2022:?5.2 ??08/05/2022:?6.1 ??08/03/2022:?8.4 ADEQUACY?ASSESSMENT spKt/V,?URR ??08/03/2022:?1.65,?75.0 ??07/06/2022:?1.63,?74.0 ??06/08/2022:?1.71,?76.0 ACCESS?ASSESSMENT ??Access?Type:?AVFistula ??Access?SubType:?Standard ??Access?Status:?Active?(In?Use)?-?09/14/2017 ??Access?Location:?Left?Forearm ??Created:?04/13/2017 Flow ??08/05/2022:?950 ??07/01/2022:?1348 ??06/03/2022:?1029 ANEMIA?ASSESSMENT HGB,?TSAT ??08/03/2022:?11.2,?12.0 ??07/27/2022:?10.7,?- ??07/20/2022:?10.6,?- ?? Ferritin ??08/03/2022:?992.0 ??07/06/2022:?1062.0 ??06/08/2022:?1599.0 Mircera,?IVP?(mcg) ??07/24/2022:?75 ??07/17/2022:?50 ??07/03/2022:?50 Iron?Sucrose?(Venofer)?(mg) ??07/31/2022:?50 ??07/24/2022:?50 ??07/17/2022:?50 BMM?ASSESSMENT Phosphorus,?Calcium ??08/03/2022:?4.8,?8.3 ??07/27/2022:?-,?8.7 ??07/20/2022:?-,?8.5 ?? PTH,?Intact ??08/03/2022:?538.0 ??07/06/2022:?419.0 ??06/08/2022:?356.0 Vitamin?D?(Calcitriol)?Oral?(mcg) ??08/07/2022:?0.50 ??08/05/2022:?0.50 ??08/03/2022:?0.50 NUTRITION?ASSESSMENT Albumin,?Potassium ??08/03/2022:?3.8,?6.0 ??07/06/2022:?4.0,?4.3 ??06/08/2022:?3.5,?4.5 ?? eNPCR ??08/03/2022:?1.06 ??07/06/2022:?0.95 ??06/08/2022:?0.87 DIAGNOSIS Chief?Complaint:?N18.6?End?stage?renal?disease Patient?data?updated?08/10/2022?at?11:38?AM Signed?By:?Lesa,?Simi,?ROCK DUST SPRAYER??on?08/10/2022?11:38:18 AM END OF DOCUMENT
--- OUTSIDE RECORDS SUMMARY | 2023-12-28 16:34 | XMS_ITS ---
Author Name Nettie Davis Address [address] [place] [address] Phone [phone] Organization [facility] e, NA DOCUMENT DISCLAIMER Multiple document versions may exist, please be sure you review the latest version. The information in the [facility] Progress Note Document represents a providers documented clinical note containing certain health and medical information. It may not contain the complete medical history for the patient and should be independently verified. The represented time in the document is Eastern Time PROVIDER ROUNDING NOTE BASIC HD PROVIDER?ROUNDING?NOTE?BASIC?HD Clinic:?[address] [place] [address].?[facility] Visit?date:?09/22/2022?00:00?Modality/setting:?IHD SINDI?FERNANDA?-?Chart?#:?[id number] Method?of?Interaction:?Face?to?face Date?of?Interaction:?12/05/2023 ?-?Patient?is?stable Patient?issues?include: 12/05/23-?Pt?tolerating?treatment?well.??No?issues?of?patient?complaints. Prior?Treatment:?12/02/2023? Dialyzer:?180NRe?Optiflux? Dialysate:?2.0?K,?2.5 Ca,?1.0?Mg,?100?Dextrose?(G2251)? Prescribed?Time:?4:0? Actual?Time:?03:59? Avg?BFR:?440? Avg?DFR:?790? Wt?Gain?(kg):?2.30? EDW?(kg):?100.00? Home?Medications ?Acetaminophen?Extra?Strength?(acetaminophen) 500?mg,?oral,?2?tablet?every?six?hours ??aspirin?(aspirin) 325?mg,?oral,?1/2?tablet?once?a?day ??atorvastatin?(atorvastatin) 40?mg,?oral,?1?tablet?once?a?day ??Basaglar?KwikPen?U-100?Insulin?(insulin?glargine) 100?unit/mL?(3?mL),?subQ, [takes?45?units] ??Breo?Ellipta?(fluticasone?furoate-vilanterol) 100-25?mcg/dose,?inhl, ??gabapentin?(gabapentin) 300?mg,?oral,?1?capsule?twice?a?day ??Norvasc?(amlodipine) 5?mg,?oral,?1?tablet?once?a?day ??Novolog?U-100?Insulin?aspart?(insulin?aspart?u-100) 100?unit/mL,?subQ,?2?unit?as?directed [Per?pump?6?clicks?(12?units)?before?meals] ??Renal?Caps?(b?complex?with?c?20-folic?acid) 1?mg,?oral,?1?capsule?once?a?day ??Renvela?(sevelamer?carbonate) 800?mg,?oral,?3?tablet?three?times?a?day [1-2?with?snacks] ??sertraline?(sertraline) 50?mg,?oral,?1?tablet?once?a?day ??tamsulosin?(tamsulosin) 0.4?mg,?oral,?1?capsule?every?night Nettie?J?Susan,?TOUR GUIDE END OF DOCUMENT
--- OUTSIDE RECORDS SUMMARY | 2023-12-28 16:34 | XMS_ITS ---
Author Name Cynthia Gerber Address [address] [place], [place] [address] Phone [phone] Organization [facility] eSANDRA DOCUMENT DISCLAIMER The information in the [facility] Dialysis Provider Note Document represents a providersdocumented clinical note containing certain health and medical information. It may not contain the complete medical history for the patient and should be independently verified. The represented time in the document is Eastern Time PROVIDER ROUNDING NOTE COMP Provider?Rounding?Note?Comp?-?SINDI?FERNANDA?-?Chart?#:?[id number] Patient?was?seen?on:?05/20/2022 Was?Patient?seen?today?:?05/20/2022 Method?of?Interaction:?Face?to?face Date?of?Interaction:?05/20/2022 Patient?is?stable ?-?High?weight?gain?noted? ?-?Low?blood?pressure?noted.? ?-?Optimal?weight?addressed?with?patient?and?staff.? ?-?Medications?and?labs?reviewed.? Prior?Treatment:?05/18/2022? Dialyzer:?180NRe?Optiflux? Dialysate:?2.0?K,?2.5 Ca,?1.0?Mg,?100?Dextrose?(G2251)? Actual?Time:?04:00?Prescribed?Time:?4:0? Avg?BFR:?450?Avg?DFR:?500? Wt?Gain?(kg):?4.20?EDW?(kg):?99.00? post?Wt?(kg):? 03/18/2022?-?EDW?decreased?to?100?based?on?recent?post- rx?weights.?04/27/2022?-?Euvolemic.??Achieving? target?weight.??No?change.?05/20/2022?-?Discuss ed?high?gains.??Will?decrease?EDW?to?98.5. VITALS ?Date:?Temperature:?Pulse:?Respirations:?BP?(Sitting):?BP?(Standing):?Weight:? Volume?Management?Comments ADEQUACY ?spKt/V?eKdrt/V?OLC?(Del)?spKtv?1.73?05/11/22 ???1.56 ?05/11/22 ???1.53?05/18/22 ???1.61?04/06/22 ???1.43 ?04/06/22 ???1.47?05/15/22 ???1.54?03/16/22 ???1.36 ?03/16/22 ???1.65?05/13/22 ?URR?Potassium,?Serum?&#160 ;?Bicarbonate?Creatinine?%?mEq/L?mEq/L?&#16 0;?mg/dL ?76?05/11/22 ?? 5.3?05/11/22 ???26?05/11/22 ?74?04/06/22 ?? 5.0?04/06/22 ???28?04/06/22 ?73?03/16/22 ?? 5.0?03/16/22 ???27?03/16/22 ?-?Adequacy?parameters?reviewed? Adequacy ?-?Adequacy?target?met?Sitting?BP?Pre?Sitting BP?Post?Standing?BP?Post?146?/?77??05/18/22?140?/?85??05/18/22?159?/?88??05/18/22?141?/?74??05/15/22?110?/?74??05/15/22?110?/?60??05/15/22?177?/?75??05/13/22?120?/?95??05/13/22?142?/?84??05/13/22? Blood?Pressure ?-?Blood?pressure?controlled? Fluid?Status ?-?Fluid?status?not?acceptable? Prescription?Compliance ?-?Prescription?compliance?acceptable? ?-?Potassium?controlled? 04/27/2022?-?Will?have?patient?bring?meds?and?adjust?an tihypertensives?as?needed. VASCULAR?ACCESS ?Type?Exit?Site?&#1 60;??Status?Access?ID?AVFistula-Standard?Forearm-Left?&#160 ;?Active?(In?Use)?[id number]? Access?Flows ??1027mL?per?min?05/08/22 ??1293mL?per?min?05/06/22 ??936mL?per?min?04/08/22 ??-?Vascular?access?reviewed? ??-?Current?access?is?functioning?well.? Most?Recent?In-center?Antibiotic?Order 11/29/2019?Vancomycin?HCl?1000?mg?IV?During?Dialysis?Once,&# 160;Clinic?4291-?Entered?By?HBMcalister ANEMIA ?HGB? Transferrin?Sat.?(Calc) ?Ferritin?g/dL?%?ng/m L?11.2?05/18/22? ??50?05/11/22?1124?05/11/22? ??11.8?05/11/22? ??31?04/06/22?823?04/06/22? ??11.1?05/04/22? ??37?03/16/22?880?03/16/22? Erythropoietin-Stimulating?Agents?(MICHEL)?Administrations ??0?mcg?Mircera?05/08/22 ??50?mcg?Mircera?04/24/22 ??50?mcg?Mircera?04/10/22 IV?Iron?Administrations ??0?mg?Venofer?05/15/22 ??0?mg?Venofer?05/08/22 ??50?mg?Venofer?05/01/22 ?-?Anemia?reviewed? ?-?Anemia?targets?met? BONE?AND?MINERAL?METABOLISM ?Calcium,?Total?Calcium,?Corrected?Phosphorous? &#160 ;?PTH-Intact,?Plasma?mg/dL?mg/dL?mg/dL?pg/mL?8.7?05/18/22? ??8.5?05/11/22? ??6.7?&#16 0;???05/11/22? ??344?05/11/22? ??8.7?05/11/22? ??8.3?04/06/22? ??5.2?&#16 0;???04/06/22? ??447?04/06/22? ??8.7?05/04/22? ??8.4?03/16/22? ??5.5?&#16 0;???03/16/22? ??365?03/16/22? Vitamin?D?25?Hydroxy ??15.9?05/11/22 ??15.3?05/12/21 ??13.4?05/13/20 Vitamin?D?Analogue?Administrations ??0.5?mcg?Vitamin?D?(?05/18/22 ??0.5?mcg?Vitamin?D?(?05/15/22 ??0.5?mcg?Vitamin?D?(?05/13/22 ?-?Bone?and?mineral?metabolism?parameters?reviewed? ?-?Calcium?controlled? ?-?Hyperphosphatemia?noted? ?-?Referred?to?dietitian?for?further?counseling? PTH ?-?PTH?within?target? 05/20/2022?-?Forgets?binder.??Discussed?that,?as?well?a s?high-phos?foods.??Dietitian?will?give?additional?handouts. NUTRITION ?Albumin?eNPCR?g/dL?g/kg/day?4.3?05/11/22? ??1.15 ?05/11/22? ??4.1?04/06/22? ??0.97 ?04/06/22? ??4.1?03/16/22? ??0.88 ?03/16/22? HOME?MEDICATIONS ?Acetaminophen?Extra?Strength?(acetaminophen)??500?mg,?oral, ?2?tablet?every?six?hours ?amlodipine?(amlodipine)??5?mg,?oral,?1?tablet?once a?day ?aspirin?(aspirin)??325?mg,?oral,?1?tablet?once?a day ?bumetanide?(bumetanide)??1?mg,?oral,?2?tablet?twice a?day ?gabapentin?(gabapentin)??300?mg,?oral,?1?capsule?three?times?a?day ?levetiracetam?(levetiracetam)??500?mg,?oral,?1?tablet? once?a?day??[TAKE?ONE?(1)?TABLET(S)?BY?MOUTH?EVERY?MORNING.] ?lidocaine-prilocaine?(lidocaine-prilocaine)??2.5-2.5%,?top,?1?a& #160;small?amount?as?directed??[apply?a?THIN?layer?to&# 160;dialysis?access?1-2?hr?prior?to?dialysis?and?wrap?with?Saran?wrap] ?losartan?(losartan)??50?mg,?oral,?1?tablet?once?a?day ?Novolog?U-100?Insulin?aspart?(insulin?aspart?u-100)??1 00?unit/mL,?subQ,?2?unit?as?directed??[Per?pump?6& #160;clicks?(12?units)?before?meals] ?pravastatin?(pravastatin)??40?mg,?oral,?1?tablet?at bedtime ?Renvela?(sevelamer?carbonate)??800?mg,?oral,?1?tablet& #160;three?times?a?day??[one?with?snacks] ?sertraline?(sertraline)??50?mg,?oral,?1?tablet?once a?day EXAM ?-?Vital?signs?reviewed? Pulmonary ?-?LUNGS?-?clear? Cardiovascular ?-?CV?-?Blood?pressure?noted? ?-?CV?-?RRR? Edema ?-?EXT?-?1+?edema? TRANSPLANT?STATUS ?Person?Taught: ??-?Patient? ?Additional?Education?Required:?No ?Date?Given:?04/29/2022 INTEREST?AND?ELIGIBILITY?(If?changes?are?made,?Please?notify?SW?below) ?Date?of?discussion?from?transplant?assessment:?04/29/2022 ?Patient?already?on?transplant?list??No ?Patient?interested?in?transplantation??Not?interested?-?other ?If?undecided?or?not?interested?-?other,?why? ??Not?interested ?Has?patient's?physician?identified?one?or?more?exclusions per?the ?Contraindication?list?provider?by?the?transplant?center? 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 ?Transplant?center/state:?[facility]?[place]?[facility]?HOSP Alerts Has?transplant?appointment?January?7,?2020 Cynthia?Buzz,? END OF DOCUMENT
--- OUTSIDE RECORDS SUMMARY | 2023-12-28 16:34 | XMS_ITS ---
Author Name Too Morgan Address [address] [place] [id number] Phone [phone] Organization [facility] e, NA DOCUMENT DISCLAIMER Multiple document versions may exist, please be sure you review the latest version. The information in the [facility] Progress Note Document represents a providers documented clinical note containing certain health and medical information. It may not contain the complete medical history for the patient and should be independently verified. The represented time in the document is Eastern Time PROVIDER ROUNDING NOTE BASIC Patient:?SINDI?FERNANDA,?1960,?62y,?M Dialysis?Location:?[facility] Attending?Sales Specialist:?Too?Eddie Service?Date:?10/25/2022 Service?Provider:?Too?Eddie,? I?met?face?to?face?with?the?patient?today. OVERVIEW The?patient?presented?with?ESRD?on?dialysis Primary?cause?of?renal?failure:?Type?2?diabetes?mellitus&#16 0;with?diabetic?chronic?kidney?disease Comments:?10/25?high?IDWG,?up?to?5?kg.?He?knows?he& #160;is?having?trouble?following?any?fluid?restriction.?He?b elives?his?diabetes?is?under?good?control?but?will?chec k?some?blood?sugars?before?putting?him?on.?He?has? a?continuous?glucose?monitor?and?thinks?most?of?his?reading?are?below?200 DIALYSIS?PRESCRIPTION ??IHD?3x?Week?Start?date:?10/18/22 ??Dialyzer:?180NRe?Optiflux ??BFR:?450 ??DFR:?Manual?500 ??Potassium:?2.0 ??Sodium:?137 ??EDW:?97.5 ??Duration:?4:00 ??Calcium:?2.5 ??Bicarb:?35 ??Rx?updated?on:?10/15/2022 TREATMENT?ASSESSMENT BP?Stand?Pre ??10/18/2022:?177/77 BP?Sit?Pre ??10/22/2022:?147/110 ??10/20/2022:?135/81 ??10/18/2022:?123/73 BP?Stand?Post ??10/22/2022:?137/87 ??10/20/2022:?136/66 ??10/18/2022:?113/70 BP?Sit?Post ??10/22/2022:?134/65 ??10/20/2022:?121/77 ??10/18/2022:?132/70 Tx?Duration ??10/22/2022:?4:00 ??10/20/2022:?4:06 ??10/18/2022:?3:58 Missed?Treatments 0?-?last?30?days 0?-?last?60?days FLUID?ASSESSMENT EDW?(kg) ??10/22/2022:?97.5 ??10/20/2022:?97.5 ??10/18/2022:?97.5 Weight?Pre?(kg) ??10/22/2022:?101.2 ??10/20/2022:?100.8 ??10/18/2022:?102.0 Weight?Post?(kg) ??10/22/2022:?97.7 ??10/20/2022:?97.9 ??10/18/2022:?98.2 PWV?(kg) ??10/22/2022:?0.2 ??10/20/2022:?0.4 ??10/18/2022:?0.7 UF?Rate?(mL/kg/hr) ??10/22/2022:?9 ??10/20/2022:?7.2 ??10/18/2022:?9.8 ADEQUACY?ASSESSMENT spKt/V,?URR ??10/04/2022:?1.62,?74.0 ??09/22/2022:?1.27,?67.0 ??08/31/2022:?1.57,?73.0 ACCESS?ASSESSMENT ??Access?Type:?AVFistula ??Access?SubType:?Standard ??Access?Status:?Active?(In?Use)?-?09/14/2017 ??Access?Location:?Left?Forearm ??Created:?04/13/2017 Flow ??09/02/2022:?903 ??08/05/2022:?950 ??07/01/2022:?1348 ANEMIA?ASSESSMENT HGB,?TSAT ??10/18/2022:?10.8,?- ??10/11/2022:?10.2,?- ??10/04/2022:?11.4,?64.0 ?? Ferritin ??10/04/2022:?1211.0 ??09/22/2022:?1113.0 ??08/31/2022:?1180.0 Mircera,?IVP?(mcg) ??10/15/2022:?75 ??09/18/2022:?30 ??09/04/2022:?30 Iron?Sucrose?(Venofer)?(mg) ??10/01/2022:?50 ??09/24/2022:?50 ??09/14/2022:?50 BMM?ASSESSMENT Phosphorus,?Calcium ??10/18/2022:?-,?8.3 ??10/11/2022:?-,?8.2 ??10/04/2022:?6.0,?8.5 ?? PTH,?Intact ??10/04/2022:?524.0 ??09/22/2022:?528.0 ??08/31/2022:?360.0 Vitamin?D?(Calcitriol)?Oral?(mcg) ??10/22/2022:?0.50 ??10/20/2022:?0.50 ??10/18/2022:?0.50 NUTRITION?ASSESSMENT Albumin,?Potassium ??10/04/2022:?3.9,?4.2 ??09/22/2022:?4.2,?4.5 ??08/31/2022:?3.9,?4.5 ?? eNPCR ??10/04/2022:?0.94 ??08/31/2022:?0.9 ??08/03/2022:?1.06 Patient?data?updated?10/25/2022?at?9:16?AM Signed?By:?Eddie,?Too,???on?10/25/2022?9:18:12?AM END OF DOCUMENT
--- OUTSIDE RECORDS SUMMARY | 2023-12-28 16:34 | XMS_ITS ---
Author Name Simi Mcfadden Address [address] [place] [id number] Phone [phone] Organization [facility] e, NA DOCUMENT DISCLAIMER Multiple document versions may exist, please be sure you review the latest version. The information in the [facility] Progress Note Document represents a providers documented clinical note containing certain health and medical information. It may not contain the complete medical history for the patient and should be independently verified. The represented time in the document is Eastern Time PROVIDER ROUNDING NOTE BASIC Patient:?SINDI?FERNANDA,?1960,?63y,?M Dialysis?Location:?[facility] Attending?Channel Program Manager:?Too?Eddie Service?Date:?04/08/2023 Service?Provider:?Simi?Lesa,?[employer] EXCHANGE ARCHITECT I?met?face?to?face?with?the?patient?today. OVERVIEW The?patient?presented?with?ESRD?on?dialysis Primary?cause?of?renal?failure:?Type?2?diabetes?mellitus&#16 0;with?diabetic?chronic?kidney?disease Comments:?04/08/23?-?Red?area?on?left?knee,?approx?1&quo t;?in?diameter?with?open?area?in?the?middle?that?a ppears?to?be?healing.?No?drainage.?Pt?states?he?hit&#16 0;his?knee?on?something?and?split?it?open.?RN?has? marked?borders?of?redness?and?will?check?each?treatment. 04/04/23?-?Stable?treatment. 03/21?Has?callus?ball?of?left?foot/advised?to?get?refer ral?to?surgery?via?PCP?for?debridement.?If?not?successf ul?will?refer?to?[facility]?vascular?surgery.?Access?ok Medications?and?labs?reviewed. LAST?HOSPITALIZATION Discharge?Diagnosis:?R78.81?Bacteremia Admission?Date?08/15/22 Discharge?Date?08/18/22 DIALYSIS?PRESCRIPTION ??IHD?3x?Week?Start?date:?04/04/23 ??Dialyzer:?180NRe?Optiflux ??BFR:?450 ??DFR:?Manual?500 ??Potassium:?2.0 ??Sodium:?137 ??EDW:?98.5 ??Duration:?4:00 ??Calcium:?2.5 ??Bicarb:?35 ??Rx?updated?on:?04/04/2023 TREATMENT?ASSESSMENT BP?Stand?Pre ??04/06/2023:?131/71 ??04/04/2023:?146/55 ??2023:?152/66 BP?Sit?Pre ??04/06/2023:?174/80 ??04/04/2023:?171/89 ??2023:?164/66 BP?Stand?Post ??04/06/2023:?100/62 ??04/04/2023:?135/58 ??2023:?115/64 BP?Sit?Post ??04/06/2023:?156/87 ??04/04/2023:?158/82 ??2023:?166/84 Tx?Duration ??04/06/2023:?4:03 ??04/04/2023:?4:07 ??2023:?4:10 Missed?Treatments 0?-?last?30?days 0?-?last?60?days FLUID?ASSESSMENT EDW?(kg) ??04/06/2023:?98.5 ??04/04/2023:?98.8 ??2023:?98.8 Weight?Pre?(kg) ??04/06/2023:?101.6 ??04/04/2023:?102.1 ??2023:?101.7 Weight?Post?(kg) ??04/06/2023:?98.2 ??04/04/2023:?98.6 ??2023:?98.4 PWV?(kg) ??04/06/2023:?-0.3 ??04/04/2023:?-0.2 ??2023:?-0.4 UF?Rate?(mL/kg/hr) ??04/06/2023:?8.5 ??04/04/2023:?8.6 ??2023:?8 ADEQUACY?ASSESSMENT spKt/V,?URR ??04/04/2023:?1.6,?74.0 ??03/07/2023:?1.79,?78.0 ??01/31/2023:?1.71,?76.0 ACCESS?ASSESSMENT ??Access?Type:?AVFistula ??Access?SubType:?Standard ??Access?Status:?Active?(In?Use)?-?09/14/2017 ??Access?Location:?Left?Forearm ??Created:?04/13/2017 Flow ??04/06/2023:?973 ??03/09/2023:?958 ??01/05/2023:?835 ANEMIA?ASSESSMENT HGB,?TSAT ??04/04/2023:?11.1,?58.0 ??03/28/2023:?11.1,?- ??03/21/2023:?12.5,?- ?? Ferritin ??04/04/2023:?863.0 ??03/07/2023:?726.0 ??01/31/2023:?883.0 Mircera,?IVP?(mcg) ??02/25/2023:?75 ??02/11/2023:?75 ??01/07/2023:?75 Iron?Sucrose?(Venofer)?(mg) ??2023:?50 ??03/25/2023:?50 ??03/18/2023:?50 BMM?ASSESSMENT Phosphorus,?Calcium ??04/04/2023:?4.2,?9.0 ??03/28/2023:?-,?8.4 ??03/21/2023:?-,?8.3 ?? PTH,?Intact ??04/04/2023:?366.0 ??03/07/2023:?429.0 ??01/31/2023:?576.0 Vitamin?D?(Calcitriol)?Oral?(mcg) ??04/06/2023:?0.75 ??04/04/2023:?0.75 ??2023:?0.75 NUTRITION?ASSESSMENT Albumin,?Potassium ??04/04/2023:?4.3,?5.0 ??03/07/2023:?4.2,?5.2 ??01/31/2023:?4.1,?5.0 ?? eNPCR ??04/04/2023:?1.14 ??03/07/2023:?1.21 ??01/31/2023:?0.86 DIAGNOSIS Chief?Complaint:?N18.6?End?stage?renal?disease Patient?data?updated?04/08/2023?at?9:03?AM Signed?By:?Lesa,?Simi,?MICROSOFT EXCHANGE ARCHITECT??on?04/08/2023?9:04:42?AM END OF DOCUMENT
--- OUTSIDE RECORDS SUMMARY | 2023-12-28 16:34 | XMS_ITS ---
Author Name Ming Seth [facility] Address [address] [place] [address] Phone [phone] Organization [facility] e, NA DOCUMENT DISCLAIMER Multiple document versions may exist, please be sure you review the latest version. The information in the [facility] Progress Note Document represents a providers documented clinical note containing certain health and medical information. It may not contain the complete medical history for the patient and should be independently verified. The represented time in the document is Eastern Time PROVIDER ROUNDING NOTE BASIC Patient:?SINDI?FERNANDA,?1960,?62y,?M Dialysis?Location:?[facility] Attending?Long [employer] Quiller Tender:?Too?Eddie Service?Date:?12/31/2022 Service?Provider:?Shira?Rolo,?PROFESSOR OF ENGLISH I?met?face?to?face?with?the?patient?today. OVERVIEW The?patient?presented?with?ESRD?on?dialysis Primary?cause?of?renal?failure:?Type?2?diabetes?mellitus&#16 0;with?diabetic?chronic?kidney?disease Comments:?12/31 Stable?treatment.?Denies?concerns. 12/20/22?-?Stable?dialysis?treatment.? 12/08/22?-?Stable?dialysis?treatment?with?no?complaints?or&#16 0;acute?issues.?Access?flow?improved. 12/01.?Needs?new?access?flow?to?decide?if?he?needs?another?fistulogram LAST?HOSPITALIZATION Discharge?Diagnosis:?R78.81?Bacteremia Admission?Date?08/15/22 Discharge?Date?08/18/22 DIALYSIS?PRESCRIPTION ??IHD?3x?Week?Start?date:?11/10/22 ??Dialyzer:?180NRe?Optiflux ??BFR:?450 ??DFR:?Manual?500 ??Potassium:?2.0 ??Sodium:?137 ??EDW:?98 ??Duration:?4:00 ??Calcium:?2.5 ??Bicarb:?35 ??Rx?updated?on:?11/08/2022 TREATMENT?ASSESSMENT BP?Stand?Pre ??12/27/2022:?163/78 ??12/24/2022:?156/74 BP?Sit?Pre ??12/29/2022:?151/77 ??12/27/2022:?151/66 ??12/24/2022:?174/86 BP?Stand?Post ??12/29/2022:?132/56 ??12/24/2022:?152/67 BP?Sit?Post ??12/29/2022:?143/69 ??12/27/2022:?112/63 ??12/24/2022:?141/75 Tx?Duration ??12/29/2022:?4:05 ??12/27/2022:?4:15 ??12/24/2022:?3:59 Missed?Treatments 0?-?last?30?days 0?-?last?60?days FLUID?ASSESSMENT EDW?(kg) ??12/29/2022:?98.0 ??12/27/2022:?98.0 ??12/24/2022:?98.0 Weight?Pre?(kg) ??12/29/2022:?101.0 ??12/27/2022:?102.2 ??12/24/2022:?100.7 Weight?Post?(kg) ??12/29/2022:?98.2 ??12/27/2022:?98.8 ??12/24/2022:?97.9 PWV?(kg) ??12/29/2022:?0.2 ??12/27/2022:?0.8 ??12/24/2022:?-0.1 UF?Rate?(mL/kg/hr) ??12/29/2022:?7 ??12/27/2022:?8.1 ??12/24/2022:?7.2 ADEQUACY?ASSESSMENT spKt/V,?URR ??12/06/2022:?1.44,?71.0 ??11/03/2022:?1.47,?72.0 ??10/04/2022:?1.62,?74.0 ACCESS?ASSESSMENT ??Access?Type:?AVFistula ??Access?SubType:?Standard ??Access?Status:?Active?(In?Use)?-?09/14/2017 ??Access?Location:?Left?Forearm ??Created:?04/13/2017 Flow ??12/08/2022:?1039 ??09/02/2022:?903 ??08/05/2022:?950 ANEMIA?ASSESSMENT HGB ??12/27/2022:?10.6 ??12/20/2022:?9.9 ??12/13/2022:?10.0 ?? Ferritin ??12/06/2022:?871.0 ??11/03/2022:?1068.0 ??10/04/2022:?1211.0 Mircera,?IVP?(mcg) ??12/10/2022:?75 ??11/12/2022:?75 ??10/15/2022:?75 Iron?Sucrose?(Venofer)?(mg) ??12/24/2022:?50 ??12/17/2022:?50 ??12/10/2022:?50 BMM?ASSESSMENT Calcium ??12/27/2022:?8.7 ??12/20/2022:?8.5 ??12/13/2022:?8.3 ?? PTH,?Intact ??12/06/2022:?565.0 ??11/03/2022:?413.0 ??10/04/2022:?524.0 Vitamin?D?(Calcitriol)?Oral?(mcg) ??12/29/2022:?0.75 ??12/27/2022:?0.50 ??12/24/2022:?0.50 NUTRITION?ASSESSMENT Albumin,?Potassium ??12/06/2022:?4.1,?4.3 ??11/03/2022:?4.4,?4.8 ??10/04/2022:?3.9,?4.2 ?? eNPCR ??12/06/2022:?1.05 ??11/03/2022:?0.98 ??10/04/2022:?0.94 DIAGNOSIS Chief?Complaint:?N18.6?End?stage?renal?disease Patient?data?updated?12/31/2022?at?9:06?AM Signed?By:?Michele-Sundar,?Shira,?PROFESSOR OF ENGLISH??on?12/31/2022?9:07:02?AM END OF DOCUMENT
--- OUTSIDE RECORDS SUMMARY | 2023-12-28 16:34 | XMS_ITS ---
Author Name Simi Mcfadden Address [address] [place] [id number] Phone [phone] Organization [facility] e, NA DOCUMENT DISCLAIMER Multiple document versions may exist, please be sure you review the latest version. The information in the [facility] Progress Note Document represents a providers documented clinical note containing certain health and medical information. It may not contain the complete medical history for the patient and should be independently verified. The represented time in the document is Eastern Time PROVIDER ROUNDING NOTE BASIC Patient:?SINDI?FERNANDA,?1960,?63y,?M Dialysis?Location:?[facility] Attending?Residential Sales Rep:?Too?Eddie Service?Date:?08/10/2023 Service?Provider:?Simi?Lesa,?ASSOCIATE PRODUCT MANAGER I?met?face?to?face?with?the?patient?today. OVERVIEW The?patient?presented?with?ESRD?on?dialysis Primary?cause?of?renal?failure:?Type?2?diabetes?mellitus&#16 0;with?diabetic?chronic?kidney?disease Comments:?08/03/23?-?having?diarrhea?again.?Given?loperamide?with?effect.? 07/25?doing?ok.?Some?diarrhea?that?is?resolving? Medications?and?labs?reviewed. LAST?HOSPITALIZATION Discharge?Diagnosis:?R78.81?Bacteremia Admission?Date?08/15/22 Discharge?Date?08/18/22 DIALYSIS?PRESCRIPTION ??IHD?3x?Week?Start?date:?04/04/23 ??Dialyzer:?180NRe?Optiflux ??BFR:?450 ??DFR:?Manual?500 ??Potassium:?2.0 ??Sodium:?137 ??EDW:?98.5 ??Duration:?4:00 ??Calcium:?2.5 ??Bicarb:?35 ??Rx?updated?on:?04/04/2023 TREATMENT?ASSESSMENT BP?Stand?Pre ??08/07/2023:?160/69 ??08/05/2023:?125/45 ??08/03/2023:?163/64 BP?Sit?Pre ??08/07/2023:?137/58 ??08/05/2023:?137/58 ??08/03/2023:?109/72 BP?Stand?Post ??08/07/2023:?132/64 ??08/05/2023:?103/51 ??08/03/2023:?112/71 BP?Sit?Post ??08/07/2023:?126/72 ??08/05/2023:?113/59 ??08/03/2023:?155/84 Tx?Duration ??08/07/2023:?3:58 ??08/05/2023:?4:07 ??08/03/2023:?4:02 Missed?Treatments 0?-?last?30?days 0?-?last?60?days FLUID?ASSESSMENT EDW?(kg) ??08/07/2023:?98.5 ??08/05/2023:?98.5 ??08/03/2023:?98.5 Weight?Pre?(kg) ??08/07/2023:?101.3 ??08/05/2023:?101.3 ??08/03/2023:?101.8 Weight?Post?(kg) ??08/07/2023:?98.4 ??08/05/2023:?98.1 ??08/03/2023:?98.6 PWV?(kg) ??08/07/2023:?-0.1 ??08/05/2023:?-0.4 ??08/03/2023:?0.1 UF?Rate?(mL/kg/hr) ??08/07/2023:?7.4 ??08/05/2023:?7.9 ??08/03/2023:?8 ADEQUACY?ASSESSMENT spKt/V,?URR ??08/01/2023:?1.92,?80.0 ??07/04/2023:?1.72,?77.0 ??06/22/2023:?1.72,?76.0 ACCESS?ASSESSMENT ??Access?Type:?AVFistula ??Access?SubType:?Standard ??Access?Status:?Active?(In?Use)?-?09/14/2017 ??Access?Location:?Left?Forearm ??Created:?04/13/2017 Flow ??08/03/2023:?841 ??07/06/2023:?842 ??06/08/2023:?811 ANEMIA?ASSESSMENT HGB,?TSAT ??08/01/2023:?9.7,?52.0 ??07/25/2023:?9.5,?- ??07/18/2023:?9.4,?- ?? Ferritin ??08/01/2023:?1221.0 ??07/04/2023:?1234.0 ??06/06/2023:?831.0 Mircera,?IVP?(mcg) ??07/29/2023:?75 ??07/15/2023:?75 Iron?Sucrose?(Venofer)?(mg) ??07/22/2023:?50 ??07/15/2023:?50 ??07/08/2023:?50 BMM?ASSESSMENT Phosphorus,?Calcium ??08/01/2023:?5.2,?8.8 ??07/25/2023:?-,?9.2 ??07/18/2023:?-,?8.7 ?? PTH,?Intact ??08/01/2023:?411.0 ??07/04/2023:?440.0 ??06/06/2023:?382.0 Vitamin?D?(Calcitriol)?Oral?(mcg) ??08/07/2023:?0.75 ??08/05/2023:?0.75 ??08/03/2023:?0.75 NUTRITION?ASSESSMENT Albumin,?Potassium ??08/01/2023:?4.2,?4.6 ??07/04/2023:?4.0,?5.0 ??06/06/2023:?4.1,?5.0 ?? eNPCR ??08/01/2023:?1.08 ??07/04/2023:?0.92 ??06/22/2023:?1.21 DIAGNOSIS Chief?Complaint:?N18.6?End?stage?renal?disease Patient?data?updated?08/10/2023?at?9:17?AM Signed?By:?Lesa,?Simi,?ASSOCIATE PRODUCT MANAGER??on?08/10/2023?9:17:27?AM END OF DOCUMENT
--- OUTSIDE RECORDS SUMMARY | 2023-12-28 16:34 | XMS_ITS ---
Author Name Ming Seth [facility] Address [address] [place] [address] Phone [phone] Organization [facility] e, NA DOCUMENT DISCLAIMER Multiple document versions may exist, please be sure you review the latest version. The information in the [facility] Progress Note Document represents a providers documented clinical note containing certain health and medical information. It may not contain the complete medical history for the patient and should be independently verified. The represented time in the document is Eastern Time PROVIDER ROUNDING NOTE BASIC Patient:?SINDI?FERNANDA,?1960,?62y,?M Dialysis?Location:?[facility] Attending?Operational Review Sergeant:?Too?Eddie Service?Date:?11/26/2022 Service?Provider:?Shira?Rolo,?COPPER MINER BLASTING I?met?face?to?face?with?the?patient?today. OVERVIEW The?patient?presented?with?ESRD?on?dialysis Primary?cause?of?renal?failure:?Type?2?diabetes?mellitus&#16 0;with?diabetic?chronic?kidney?disease Comments:?11/26/22 Stable?HD?run.?Denies?any?concerns.?No?access?issues.?UF?appropriately?set. 11/22/22?-?Stable?treatment?with?no?complaints?or?acute?issues.? 11/17?no?cramps?with?increase?EDW LAST?HOSPITALIZATION Discharge?Diagnosis:?R78.81?Bacteremia Admission?Date?08/15/22 Discharge?Date?08/18/22 DIALYSIS?PRESCRIPTION ??IHD?3x?Week?Start?date:?11/10/22 ??Dialyzer:?180NRe?Optiflux ??BFR:?450 ??DFR:?Manual?500 ??Potassium:?2.0 ??Sodium:?137 ??EDW:?98 ??Duration:?4:00 ??Calcium:?2.5 ??Bicarb:?35 ??Rx?updated?on:?11/08/2022 TREATMENT?ASSESSMENT BP?Stand?Pre ??11/22/2022:?188/90 ??11/19/2022:?164/81 BP?Sit?Pre ??11/24/2022:?135/71 ??11/22/2022:?160/78 ??11/19/2022:?175/84 BP?Stand?Post ??11/24/2022:?107/40 ??11/22/2022:?110/55 ??11/19/2022:?121/53 BP?Sit?Post ??11/24/2022:?142/61 ??11/22/2022:?141/64 ??11/19/2022:?131/60 Tx?Duration ??11/24/2022:?3:46 ??11/22/2022:?4:14 ??11/19/2022:?3:52 Missed?Treatments 0?-?last?30?days 0?-?last?60?days FLUID?ASSESSMENT EDW?(kg) ??11/24/2022:?98.0 ??11/22/2022:?98.0 ??11/19/2022:?98.0 Weight?Pre?(kg) ??11/24/2022:?100.2 ??11/22/2022:?100.9 ??11/19/2022:?100.5 Weight?Post?(kg) ??11/24/2022:?98.7 ??11/22/2022:?98.0 ??11/19/2022:?97.9 PWV?(kg) ??11/24/2022:?0.7 ??11/22/2022:?0.0 ??11/19/2022:?-0.1 UF?Rate?(mL/kg/hr) ??11/24/2022:?4 ??11/22/2022:?7 ??11/19/2022:?6.9 ADEQUACY?ASSESSMENT spKt/V,?URR ??11/03/2022:?1.47,?72.0 ??10/04/2022:?1.62,?74.0 ??09/22/2022:?1.27,?67.0 ACCESS?ASSESSMENT ??Access?Type:?AVFistula ??Access?SubType:?Standard ??Access?Status:?Active?(In?Use)?-?09/14/2017 ??Access?Location:?Left?Forearm ??Created:?04/13/2017 Flow ??09/02/2022:?903 ??08/05/2022:?950 ??07/01/2022:?1348 ANEMIA?ASSESSMENT HGB ??11/22/2022:?10.4 ??11/15/2022:?10.2 ??11/08/2022:?10.7 ?? Ferritin ??11/03/2022:?1068.0 ??10/04/2022:?1211.0 ??09/22/2022:?1113.0 Mircera,?IVP?(mcg) ??11/12/2022:?75 ??10/15/2022:?75 ??09/18/2022:?30 Iron?Sucrose?(Venofer)?(mg) ??11/19/2022:?50 ??11/12/2022:?50 ??10/01/2022:?50 BMM?ASSESSMENT Calcium ??11/22/2022:?8.3 ??11/15/2022:?8.5 ??11/08/2022:?8.5 ?? PTH,?Intact ??11/03/2022:?413.0 ??10/04/2022:?524.0 ??09/22/2022:?528.0 Vitamin?D?(Calcitriol)?Oral?(mcg) ??11/24/2022:?0.50 ??11/22/2022:?0.50 ??11/19/2022:?0.50 NUTRITION?ASSESSMENT Albumin,?Potassium ??11/03/2022:?4.4,?4.8 ??10/04/2022:?3.9,?4.2 ??09/22/2022:?4.2,?4.5 ?? eNPCR ??11/03/2022:?0.98 ??10/04/2022:?0.94 ??08/31/2022:?0.9 DIAGNOSIS Chief?Complaint:?N18.6?End?stage?renal?disease Patient?data?updated?11/26/2022?at?9:17?AM Signed?By:?Bautista-Sundar,?Shira,?COPPER MINER BLASTING??on?11/26/2022?9:17:59?AM END OF DOCUMENT
--- OUTSIDE RECORDS SUMMARY | 2023-12-28 16:34 | XMS_ITS ---
Author Name Too Morgan Address [address] [place] [id number] Phone [phone] Organization [facility] e, NA DOCUMENT DISCLAIMER Multiple document versions may exist, please be sure you review the latest version. The information in the [facility] Progress Note Document represents a providers documented clinical note containing certain health and medical information. It may not contain the complete medical history for the patient and should be independently verified. The represented time in the document is Eastern Time PROVIDER ROUNDING NOTE BASIC Patient:?SINDI?FERNANDA,?1960,?63y,?M Dialysis?Location:?[facility] Attending?Blue [employer] Hanger:?Too?Eddie Service?Date:?07/25/2023 Service?Provider:?Too?Eddie,? I?met?face?to?face?with?the?patient?today. OVERVIEW The?patient?presented?with?ESRD?on?dialysis Primary?cause?of?renal?failure:?Type?2?diabetes?mellitus&#16 0;with?diabetic?chronic?kidney?disease Comments:?07/25?doing?ok.?Some?diarrhea?that?is?resolving DIALYSIS?PRESCRIPTION ??IHD?3x?Week?Start?date:?04/04/23 ??Dialyzer:?180NRe?Optiflux ??BFR:?450 ??DFR:?Manual?500 ??Potassium:?2.0 ??Sodium:?137 ??EDW:?98.5 ??Duration:?4:00 ??Calcium:?2.5 ??Bicarb:?35 ??Rx?updated?on:?04/04/2023 TREATMENT?ASSESSMENT BP?Stand?Pre ??07/22/2023:?127/36 ??07/20/2023:?135/52 ??07/18/2023:?123/47 BP?Sit?Pre ??07/22/2023:?140/58 ??07/20/2023:?134/60 ??07/18/2023:?135/57 BP?Stand?Post ??07/22/2023:?104/49 ??07/20/2023:?116/71 ??07/18/2023:?100/56 BP?Sit?Post ??07/22/2023:?142/69 ??07/20/2023:?134/74 ??07/18/2023:?129/69 Tx?Duration ??07/22/2023:?3:57 ??07/20/2023:?4:02 ??07/18/2023:?4:26 Missed?Treatments 0?-?last?30?days 1?-?last?60?days 2/2?-?recent FLUID?ASSESSMENT EDW?(kg) ??07/22/2023:?98.5 ??07/20/2023:?98.5 ??07/18/2023:?98.5 Weight?Pre?(kg) ??07/22/2023:?100.5 ??07/20/2023:?100.4 ??07/18/2023:?102.2 Weight?Post?(kg) ??07/22/2023:?98.2 ??07/20/2023:?98.3 ??07/18/2023:?98.7 PWV?(kg) ??07/22/2023:?-0.3 ??07/20/2023:?-0.2 ??07/18/2023:?0.2 UF?Rate?(mL/kg/hr) ??07/22/2023:?5.9 ??07/20/2023:?5.3 ??07/18/2023:?8 ADEQUACY?ASSESSMENT spKt/V,?URR ??07/04/2023:?1.72,?77.0 ??06/22/2023:?1.72,?76.0 ??06/06/2023:?1.17,?62.0 ACCESS?ASSESSMENT ??Access?Type:?AVFistula ??Access?SubType:?Standard ??Access?Status:?Active?(In?Use)?-?09/14/2017 ??Access?Location:?Left?Forearm ??Created:?04/13/2017 Flow ??07/06/2023:?842 ??06/08/2023:?811 ??05/09/2023:?949 ANEMIA?ASSESSMENT HGB,?TSAT ??07/18/2023:?9.4,?- ??07/11/2023:?9.1,?- ??07/04/2023:?9.4,?73.0 ?? Ferritin ??07/04/2023:?1234.0 ??06/06/2023:?831.0 ??05/04/2023:?953.0 Mircera,?IVP?(mcg) ??07/15/2023:?75 ??05/06/2023:?75 Iron?Sucrose?(Venofer)?(mg) ??07/22/2023:?50 ??07/15/2023:?50 ??07/08/2023:?50 BMM?ASSESSMENT Phosphorus,?Calcium ??07/18/2023:?-,?8.7 ??07/11/2023:?-,?8.7 ??07/04/2023:?6.0,?8.7 ?? PTH,?Intact ??07/04/2023:?440.0 ??06/06/2023:?382.0 ??05/04/2023:?379.0 Vitamin?D?(Calcitriol)?Oral?(mcg) ??07/22/2023:?0.75 ??07/20/2023:?0.75 ??07/18/2023:?0.75 NUTRITION?ASSESSMENT Albumin,?Potassium ??07/04/2023:?4.0,?5.0 ??06/06/2023:?4.1,?5.0 ??05/04/2023:?4.3,?4.6 ?? eNPCR ??07/04/2023:?0.92 ??06/22/2023:?1.21 ??06/06/2023:?1.24 Patient?data?updated?07/25/2023?at?9:09?AM Signed?By:?Eddie,?Too,???on?07/25/2023?9:10:15?AM END OF DOCUMENT
--- OUTSIDE RECORDS SUMMARY | 2023-12-28 16:34 | XMS_ITS ---
Author Name Ming Seth [facility] Address [address] [place] [address] Phone [phone] Organization [facility] e, NA DOCUMENT DISCLAIMER Multiple document versions may exist, please be sure you review the latest version. The information in the [facility] Progress Note Document represents a providers documented clinical note containing certain health and medical information. It may not contain the complete medical history for the patient and should be independently verified. The represented time in the document is Eastern Time PROVIDER ROUNDING NOTE BASIC Patient:?SINDI?FERNANDA,?1960,?62y,?M Dialysis?Location:?[facility] Attending?Doubler Operator:?Cynthia?Buzz Service?Date:?06/15/2022 Service?Provider:?Shira?Rolo,?VIDEO GAME REPAIR TECHNICIAN I?met?face?to?face?with?the?patient?today. OVERVIEW The?patient?presented?with?ESRD?on?dialysis Primary?cause?of?renal?failure:?Type?2?diabetes?mellitus&#16 0;with?diabetic?chronic?kidney?disease Comments:?06/15/22-Tolerating?HD?well?and?denies?any?new?complaints.? 06/10/22-?Tolerating?HD?well?and?denies?any?new?complaints. Metabolic?and?volume?parameters?reviewed.? Education?provided?on?reviewed?monthly?labs?and?UFG.?No changes?made 05/06/22-?Tolerating?treatment?well.?Denies?any?concerns. 04/20/22?-?Large?IDWG?today.??Discussed?in?detail?with patient.? 04/08/22?-?Increase?calcitriol?to?0.5mcg?for?low?Ca?and& #160;elevated?PTH.?Stable?treatment. 04/01/22?-?Stable?treatment,?no?complaints.??Feeling?well on?off?days. 03/16/22?-?Ending?treatment?below?EDW?with?stable?BP.?& #160;Will?adjust?EDW.??Stable?treatment?today?with?no?complaints. 03/09?Overall?stable/no?acute?issues 05/27/22 Doing?all?right?on?dialysis,?but?feels?dizzy?and?fatigu ed?after?HD,?currently?on?Losartan?and?Amlodipine,?he?w as?asked?to?keep?a?log?of?blood?pressure?and?bring ?it?next?week.?Phos?running?high. 06/01/ Blood?pressure?stable.?He?forgot?to?bring?the?blood?pressure?log. DIALYSIS?PRESCRIPTION ??IHD?3x?Week?Start?date:?06/10/22 ??Dialyzer:?180NRe?Optiflux ??BFR:?450 ??DFR:?Manual?500 ??Potassium:?2.0 ??Sodium:?137 ??EDW:?96.5 ??Duration:?4:00 ??Calcium:?2.5 ??Bicarb:?35 ??Rx?updated?on:?06/10/2022 TREATMENT?ASSESSMENT BP?Stand?Pre ??06/10/2022:?156/76 ??06/08/2022:?135/57 BP?Sit?Pre ??06/12/2022:?157/89 ??06/10/2022:?136/81 ??06/08/2022:?117/53 BP?Stand?Post ??06/12/2022:?153/90 ??06/10/2022:?111/84 ??06/08/2022:?116/61 BP?Sit?Post ??06/12/2022:?137/65 ??06/10/2022:?109/71 ??06/08/2022:?119/78 Tx?Duration ??06/12/2022:?4:01 ??06/10/2022:?4:05 ??06/08/2022:?4:08 Missed?Treatments 0?-?last?30?days 0?-?last?60?days FLUID?ASSESSMENT EDW?(kg) ??06/12/2022:?96.5 ??06/10/2022:?97.0 ??06/08/2022:?98.5 Weight?Pre?(kg) ??06/12/2022:?99.7 ??06/10/2022:?100.6 ??06/08/2022:?101.9 Weight?Post?(kg) ??06/12/2022:?96.4 ??06/10/2022:?95.9 ??06/08/2022:?98.0 PWV?(kg) ??06/12/2022:?-0.1 ??06/10/2022:?-1.1 ??06/08/2022:?-0.5 UF?Rate?(mL/kg/hr) ??06/12/2022:?8.5 ??06/10/2022:?12 ??06/08/2022:?9.6 ADEQUACY?ASSESSMENT spKt/V,?URR ??06/08/2022:?1.71,?76.0 ??05/11/2022:?1.73,?76.0 ??04/06/2022:?1.61,?74.0 ACCESS?ASSESSMENT ??Access?Type:?AVFistula ??Access?SubType:?Standard ??Access?Status:?Active?(In?Use)?-?09/14/2017 ??Access?Location:?Left?Forearm ??Created:?04/13/2017 Flow ??06/03/2022:?1029 ??05/08/2022:?1027 ??05/06/2022:?1293 ANEMIA?ASSESSMENT HGB,?TSAT ??06/08/2022:?10.3,?54.0 ??06/01/2022:?11.0,?- ??05/25/2022:?11.0,?- ?? Ferritin ??06/08/2022:?1599.0 ??05/11/2022:?1124.0 ??04/06/2022:?823.0 Mircera,?IVP?(mcg) ??04/24/2022:?50 ??04/10/2022:?50 ??03/27/2022:?50 Iron?Sucrose?(Venofer)?(mg) ??06/12/2022:?50 ??05/29/2022:?50 ??05/01/2022:?50 BMM?ASSESSMENT Phosphorus,?Calcium ??06/08/2022:?5.6,?8.1 ??06/01/2022:?-,?8.8 ??05/25/2022:?-,?8.4 ?? PTH,?Intact ??06/08/2022:?356.0 ??05/11/2022:?344.0 ??04/06/2022:?447.0 Vitamin?D?(Calcitriol)?Oral?(mcg) ??06/12/2022:?0.50 ??06/10/2022:?0.50 ??06/08/2022:?0.50 NUTRITION?ASSESSMENT Albumin,?Potassium ??06/08/2022:?3.5,?4.5 ??05/11/2022:?4.3,?5.3 ??04/06/2022:?4.1,?5.0 ?? eNPCR ??06/08/2022:?0.87 ??05/11/2022:?1.15 ??04/06/2022:?0.97 DIAGNOSIS Chief?Complaint:?N18.6?End?stage?renal?disease Patient?is?stable. Patient?data?updated?06/15/2022?at?12:14?PM Signed?By:?Bautista-Sundar,?Shira,?VIDEO GAME REPAIR TECHNICIAN??on?06/15/2022?12:15:21?PM END OF DOCUMENT
--- OUTSIDE RECORDS SUMMARY | 2023-12-28 16:34 | XMS_ITS ---
Author Name Too Morgan Address [address] [place] [address] Phone [phone] [facility] e, NA DOCUMENT DISCLAIMER Multiple document versions may exist, please be sure you review the latest version. The information in the [facility] Progress Note Document represents a providers documented clinical note containing certain health and medical information. It may not contain the complete medical history for the patient and should be independently verified. The represented time in the document is Eastern Time PROVIDER ROUNDING NOTE COMP HD PROVIDER?ROUNDING?NOTE?COMP?HD Clinic:?[address] [place] [address].?[facility] Visit?date:?09/22/2022?00:00?Modality/setting:?IHD SINDI?MICHAEL?-?Chart?#:?[id number] Method?of?Interaction:?Face?to?face Comments:?having?left?leg?pain/told?it?ok?to?use?Advil Date?of?Interaction:?11/28/2023 ?-?Patient?is?stable ?-?Medications?and?labs?reviewed. Prior?Treatment:?11/25/2023? Dialyzer:?180NRe?Optiflux? Dialysate:?2.0?K,?2.5 Ca,?1.0?Mg,?100?Dextrose?(G2251)? Prescribed?Time:?4:0?Avg?BFR:?& #160;??450?Wt?Gain?(kg):?3.30? Actual?Time:?03:44?Avg?DFR:?730?&#16 0;EDW?(kg):?100.00? Volume?Management?Comments: 03/18/2022?-?EDW?decreased?to?100?based?on?recent?post-rx?weights.?04/27/2022 -?Euvolemic.??Achieving?target?weight.??No?change.?&#16 0;??08/05/2022?-?Intermittent high?gains.??Usually?achieves?target?weight.?05/20/2022?-?Discussed?high gains.??Will?decrease?EDW?to?98.5.?07/20/2022&# 160;-?Discussed?high?gains.??EDW recently?increased?due?to?inability?to?reach?target. Adequacy ?spKt/V?eKdrt/V?&#160 ; ???OLC?(Del)?spKtv?URR?%?7.46?10/31/23?? ?4.15?10/31/23?? ?1.73?0 11/25/23?? ?97?10/31/23? ?1.88?10/03/23?? ?1.66?10/03/23?? ?2.00?0 11/23/23?? ?79?10/03/23? ?1.28?09/05/23?? ?1.13?09/05/23?? ?1.96?0 11/21/23?? ?64?09/05/23? ?Potassium,?Serum?mEq/L?Bicarbonate?mEq/L??&# 160;?Creatinine?mg/dL?4.9?10/31/23? 22?10/31/23?&# 160;?-?5.8?10/10/23? 22?10/10/23?&# 160;?-?5.1?09/26/23? 21?09/05/23?&# 160;?-?-?Adequacy?parameters?reviewed Adequacy ?-?Adequacy?target?met ?Sitting?BP?Pre?Sitting BP?Post?Systolic/Diastolic?Systolic/Diastolic?145?/?69??11/25/23?150?/?76??11/25/23?126?/?62??11/23/23?135?/?51??11/23/23?129?/?72??11/21/23?171?/?82??11/21/23?? Blood?Pressure ?-?Blood?pressure?controlled Fluid?Status ?-?Fluid?status?not?acceptable Prescription?Compliance ?-?Potassium?controlled 04/27/2022?-?Will?have?patient?bring?meds?and?adjust?antihypertensives?as needed.?08/05/2022?-?Will?recheck;?typically?not elevated. Anemia ?HGB?g/dL? Transferrin?Sat.?(Calc)?%?Ferritin?ng/mL&#160 ;?9.7?11/21/23? 37?10/31/23?1905?10/31/23?? ?9.8?11/14/23? 48?10/10/23?1162?10/10/23?? ?9.7?11/07/23? 22?09/05/23?732?09/05/23?? MICHEL?Administrations ??100?mcg?Mircera?11/18/23 ??75?mcg?Mircera?11/04/23 ??60?mcg?Mircera?10/21/23 IV?Iron?Administrations ??50?mg?Venofer?11/04/23 ??50?mg?Venofer?10/28/23 ??50?mg?Venofer?10/21/23 ?-?Anemia?reviewed ?-?MICHEL?adjusted?per?protocol Bone?and?Mineral?Metabolism ??Calcium,?Total?mg/dL?? Calcium,?Corrected?mg/dL ?&#1 60;??Phosphorous?mg/dL??? PTH-Intact,?Plasma?pg/mL ??8.5?11/14/23? 8.3?10/31/23?7.3&#16 0;?10/31/23?449?10/31/23?8.8?11/07/23? 8.0?09/05/23?5.2&#16 0;?10/10/23?459?10/03/23?8.5?10/31/23? 8.6?08/01/23?7.4&#16 0;?09/05/23?512?09/05/23?Vitamin?D?25?Hydroxy?ng/mL? ?Vitamin?D?Analogue? Administrations?Calcimimetics?14.8?10/03/23?0.75?mcg?Vitamin?D??11/25/23??& #160;?-?10.3?07/04/23?0.75?mcg?Vitamin?D??11/23/23??& #160;?-?25.1?04/04/23?0.75?mcg?Vitamin?D??11/21/23??& #160;?-? PTH ?-?PTH?within?target ?-?Bone?and?mineral?metabolism?parameters?reviewed ?-?Calcium?controlled ?-?Phosphorus?binders?adjusted ?-?Hyperphosphatemia?noted 05/20/2022?-?Forgets?binder.??Discussed?that,?as?well?as?high-phos?foods.? Dietitian?will?give?additional?handouts.?08/05/2022?-?Will?increase calcitriol?to?0.75mcg?qrx. Nutrition ?Albumin?g/dL? eNPCR?g/kg/day?4.3?10/31/23?? ?1.62?10/31/23?? ?3.9?10/03/23?? ?1.06?10/03/23?? ?4.1?09/05/23?? ?1.06?09/05/23?? ?-?Nutrition?reviewed ?-?Referred?to?dietitian?for?further?counseling Home?Medications ?Acetaminophen?Extra?Strength?(acetaminophen) 500?mg,?oral,?2?tablet?every?six?hours ??aspirin?(aspirin) 325?mg,?oral,?1/2?tablet?once?a?day ??atorvastatin?(atorvastatin) 40?mg,?oral,?1?tablet?once?a?day ??Basaglar?KwikPen?U-100?Insulin?(insulin?glargine) 100?unit/mL?(3?mL),?subQ, [takes?45?units] ??Breo?Ellipta?(fluticasone?furoate-vilanterol) 100-25?mcg/dose,?inhl, ??gabapentin?(gabapentin) 300?mg,?oral,?1?capsule?twice?a?day ??Norvasc?(amlodipine) 5?mg,?oral,?1?tablet?once?a?day ??Novolog?U-100?Insulin?aspart?(insulin?aspart?u-100) 100?unit/mL,?subQ,?2?unit?as?directed [Per?pump?6?clicks?(12?units)?before?meals] ??Renal?Caps?(b?complex?with?c?20-folic?acid) 1?mg,?oral,?1?capsule?once?a?day ??Renvela?(sevelamer?carbonate) 800?mg,?oral,?3?tablet?three?times?a?day [1-2?with?snacks] ??sertraline?(sertraline) 50?mg,?oral,?1?tablet?once?a?day ??tamsulosin?(tamsulosin) 0.4?mg,?oral,?1?capsule?every?night Vascular?Access?-?Active/Maturing ?Type?Position/Location?Status?Access?ID?AVFistula-Standard?Forearm-Left?Activ e?(In?Use)?590902 ?-?-?&# 160;?-? -?-?-?&# 160;?-? -? Access?Flows ??886mL?per?min?11/16/23 ??1427mL?per?min?10/05/23 ??1112mL?per?min?09/07/23 ?-?Vascular?access?reviewed ?-?Current?access?is?functioning?well. Infection?-?Signs?and?Symptoms?Tracking Most?Recent?In-center?Antibiotic?Order 08/19/2022?Vancomycin?HCl?750?mg?IV?Every?Treatment?x?5 ?Times,?Clinic?4181-?Entered?By?[facility] ?-?LUNGS?-?clear Edema ?-?EXT?-?1+?edema Transplant?Status Topic Exploring?Alternative?Treatment?Options: Kidney?Transplant ?Person?Taught: ?-?Patient ?Additional?Education?Required:?No ?Date?Given:?04/29/2022 Interest?and?Eligibility?(If?changes?are?made,?Please?notify?SW?via?alert?below) ?Date?of?discussion?from?transplant?assessment:?12/06/2022 ?Patient?already?on?transplant?list??No ?Patient?interested?in?transplantation??Not?interested?-?other ?If?undecided?or?not?interested?-?other,?why? ??Not?interested ?Has?patient's?physician?identified?one?or?more?exclusions per?the ?Contraindication?list?provided?by?the?transplant?center? ??Yes ?Reason?for?non-referral: ??Patient?declined?referral ?Transplant?Comments: ??12/06:?Pt?continues?to?express?that?he?is?not&#160 ;interested?in?transplant?at?this time. 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 ??SW?hasn't?been?made?aware?pt's?changed?his?mind regarding?transplant ?Transplant?[place] Tobacco?Cessation ??Tobacco?use:?Never?used Alerts Alert?comments: Has?transplant?appointment?January?7,?2020 Too?Eddie,PREETHI END OF DOCUMENT
--- OUTSIDE RECORDS SUMMARY | 2023-12-28 16:34 | XMS_ITS ---
Author Name Simi Mcfadden Address [address] [place] [id number] Phone [phone] Organization [facility] e, NA DOCUMENT DISCLAIMER Multiple document versions may exist, please be sure you review the latest version. The information in the [facility] Progress Note Document represents a providers documented clinical note containing certain health and medical information. It may not contain the complete medical history for the patient and should be independently verified. The represented time in the document is Eastern Time PROVIDER ROUNDING NOTE BASIC Patient:?SINDI?FERNANDA,?1960,?63y,?M Dialysis?Location:?[facility] Attending?Car Audio Installer:?Too?Eddie Service?Date:?07/22/2023 Service?Provider:?Simi?Lesa,?HOSPITALITY AIDE I?met?face?to?face?with?the?patient?today. OVERVIEW The?patient?presented?with?ESRD?on?dialysis Primary?cause?of?renal?failure:?Type?2?diabetes?mellitus&#16 0;with?diabetic?chronic?kidney?disease Comments:?18?no?acute?issues. Medications?and?labs?reviewed. LAST?HOSPITALIZATION Discharge?Diagnosis:?R78.81?Bacteremia Admission?Date?08/15/22 Discharge?Date?08/18/22 DIALYSIS?PRESCRIPTION ??IHD?3x?Week?Start?date:?04/04/23 ??Dialyzer:?180NRe?Optiflux ??BFR:?450 ??DFR:?Manual?500 ??Potassium:?2.0 ??Sodium:?137 ??EDW:?98.5 ??Duration:?4:00 ??Calcium:?2.5 ??Bicarb:?35 ??Rx?updated?on:?04/04/2023 TREATMENT?ASSESSMENT BP?Stand?Pre ??07/20/2023:?135/52 ??07/18/2023:?123/47 ??07/15/2023:?112/42 BP?Sit?Pre ??07/20/2023:?134/60 ??07/18/2023:?135/57 ??07/15/2023:?123/58 BP?Stand?Post ??07/20/2023:?116/71 ??07/18/2023:?100/56 ??07/15/2023:?107/63 BP?Sit?Post ??07/20/2023:?134/74 ??07/18/2023:?129/69 ??07/15/2023:?123/66 Tx?Duration ??07/20/2023:?4:02 ??07/18/2023:?4:26 ??07/15/2023:?4:16 Missed?Treatments 0?-?last?30?days 1?-?last?60?days 2/2?-?recent FLUID?ASSESSMENT EDW?(kg) ??07/20/2023:?98.5 ??07/18/2023:?98.5 ??07/15/2023:?98.5 Weight?Pre?(kg) ??07/20/2023:?100.4 ??07/18/2023:?102.2 ??07/15/2023:?101.4 Weight?Post?(kg) ??07/20/2023:?98.3 ??07/18/2023:?98.7 ??07/15/2023:?98.7 PWV?(kg) ??07/20/2023:?-0.2 ??07/18/2023:?0.2 ??07/15/2023:?0.2 UF?Rate?(mL/kg/hr) ??07/20/2023:?5.3 ??07/18/2023:?8 ??07/15/2023:?6.4 ADEQUACY?ASSESSMENT spKt/V,?URR ??07/04/2023:?1.72,?77.0 ??06/22/2023:?1.72,?76.0 ??06/06/2023:?1.17,?62.0 ACCESS?ASSESSMENT ??Access?Type:?AVFistula ??Access?SubType:?Standard ??Access?Status:?Active?(In?Use)?-?09/14/2017 ??Access?Location:?Left?Forearm ??Created:?04/13/2017 Flow ??07/06/2023:?842 ??06/08/2023:?811 ??05/09/2023:?949 ANEMIA?ASSESSMENT HGB,?TSAT ??07/11/2023:?9.1,?- ??07/04/2023:?9.4,?73.0 ??06/27/2023:?10.0,?- ?? Ferritin ??07/04/2023:?1234.0 ??06/06/2023:?831.0 ??05/04/2023:?953.0 Mircera,?IVP?(mcg) ??07/15/2023:?75 ??05/06/2023:?75 ??04/22/2023:?75 Iron?Sucrose?(Venofer)?(mg) ??07/15/2023:?50 ??07/08/2023:?50 ??07/01/2023:?50 BMM?ASSESSMENT Phosphorus,?Calcium ??07/11/2023:?-,?8.7 ??07/04/2023:?6.0,?8.7 ??06/27/2023:?-,?8.4 ?? PTH,?Intact ??07/04/2023:?440.0 ??06/06/2023:?382.0 ??05/04/2023:?379.0 Vitamin?D?(Calcitriol)?Oral?(mcg) ??07/20/2023:?0.75 ??07/18/2023:?0.75 ??07/15/2023:?0.75 NUTRITION?ASSESSMENT Albumin,?Potassium ??07/04/2023:?4.0,?5.0 ??06/06/2023:?4.1,?5.0 ??05/04/2023:?4.3,?4.6 ?? eNPCR ??07/04/2023:?0.92 ??06/22/2023:?1.21 ??06/06/2023:?1.24 DIAGNOSIS Chief?Complaint:?N18.6?End?stage?renal?disease Patient?data?updated?07/22/2023?at?9:45?AM Signed?By:?Lesa,?Simi,?HOSPITALITY AIDE??on?07/22/2023?9:45:18?AM END OF DOCUMENT
--- OUTSIDE RECORDS SUMMARY | 2023-12-28 16:34 | XMS_ITS ---
Author Name Ming Seth [facility] Address [address] [place] [address] Phone [phone] Organization [facility] e, NA DOCUMENT DISCLAIMER The information in the [facility] Provider Note Document represents a providersdocumented clinical note containing certain health and medical information. It may not contain the complete medical history for the patient and should be independently verified. The represented time in the document is Eastern Time PROVIDER ROUNDING NOTE BASIC Patient:?SINDI?MICHAEL,?1960,?62y,?M Dialysis?Location:?[facility] Attending?Yard Specialist:?Cynthia?Buzz Service?Date:?05/06/2022 Service?Provider:?Shira?Rolo,?DRIVER STARTING GATE I?met?face?to?face?with?the?patient?today. OVERVIEW The?patient?presented?with?ESRD?on?dialysis Primary?cause?of?renal?failure:?Type?2?diabetes?mellitus&#16 0;with?diabetic?chronic?kidney?disease Comments:?05/06/22-?Tolerating?treatment?well.?Denies?any?concerns. 04/20/22?-?Large?IDWG?today.??Discussed?in?detail?with patient.? 04/08/22?-?Increase?calcitriol?to?0.5mcg?for?low?Ca?and& #160;elevated?PTH.?Stable?treatment. 04/01/22?-?Stable?treatment,?no?complaints.??Feeling?well on?off?days. 03/16/22?-?Ending?treatment?below?EDW?with?stable?BP.?& #160;Will?adjust?EDW.??Stable?treatment?today?with?no?complaints. 03/09?Overall?stable/no?acute?issues DIALYSIS?PRESCRIPTION ??IHD?3x?Week?Start?date:?04/17/22 ??Dialyzer:?180NRe?Optiflux ??BFR:?450 ??DFR:?Manual?500 ??Potassium:?2.0 ??Sodium:?137 ??EDW:?99.5 ??Duration:?4:00 ??Calcium:?2.5 ??Bicarb:?35 ??Rx?updated?on:?04/17/2022 TREATMENT?ASSESSMENT BP?Sit?Pre ??05/04/2022:?171/84 ??05/01/2022:?150/69 ??04/29/2022:?132/63 BP?Stand?Post ??05/04/2022:?156/80 ??05/01/2022:?162/92 ??04/29/2022:?106/90 BP?Sit?Post ??05/04/2022:?153/81 ??05/01/2022:?116/89 ??04/29/2022:?134/71 Tx?Duration ??05/04/2022:?4:01 ??05/01/2022:?4:00 ??04/29/2022:?4:01 Missed?Treatments 0?-?last?30?days 0?-?last?60?days FLUID?ASSESSMENT EDW?(kg) ??05/04/2022:?99.5 ??05/01/2022:?99.5 ??04/29/2022:?99.5 Weight?Pre?(kg) ??05/04/2022:?103.8 ??05/01/2022:?102.0 ??04/29/2022:?102.8 Weight?Post?(kg) ??05/04/2022:?99.0 ??05/01/2022:?98.6 ??04/29/2022:?98.8 PWV?(kg) ??05/04/2022:?-0.5 ??05/01/2022:?-0.9 ??04/29/2022:?-0.7 UF?Rate?(mL/kg/hr) ??05/04/2022:?12.1 ??05/01/2022:?8.6 ??04/29/2022:?10.1 ADEQUACY?ASSESSMENT spKt/V,?URR ??04/06/2022:?1.61,?74.0 ??03/16/2022:?1.54,?73.0 ??02/09/2022:?1.55,?74.0 ACCESS?ASSESSMENT ??Access?Type:?AVFistula ??Access?SubType:?Standard ??Access?Status:?Active?(In?Use)?-?09/14/2017 ??Access?Location:?Left?Forearm ??Created:?04/13/2017 Flow ??05/06/2022:?1293 ??04/08/2022:?936 ??02/11/2022:?1418 ANEMIA?ASSESSMENT HGB ??05/04/2022:?11.1 ??04/27/2022:?10.8 ??04/20/2022:?10.4 ?? Ferritin ??04/06/2022:?823.0 ??03/16/2022:?880.0 ??02/09/2022:?1165.0 Mircera,?IVP?(mcg) ??04/24/2022:?50 ??04/10/2022:?50 ??03/27/2022:?50 Iron?Sucrose?(Venofer)?(mg) ??05/01/2022:?50 ??04/24/2022:?50 ??04/17/2022:?50 BMM?ASSESSMENT Calcium ??05/04/2022:?8.7 ??04/20/2022:?8.3 ??04/13/2022:?8.5 ?? PTH,?Intact ??04/06/2022:?447.0 ??03/16/2022:?365.0 ??02/09/2022:?275.0 Vitamin?D?(Calcitriol)?Oral?(mcg) ??05/04/2022:?0.50 ??05/01/2022:?0.50 ??04/29/2022:?0.50 NUTRITION?ASSESSMENT Albumin,?Potassium ??04/06/2022:?4.1,?5.0 ??03/16/2022:?4.1,?5.0 ??02/09/2022:?4.0,?4.6 ?? eNPCR ??04/06/2022:?0.97 ??03/16/2022:?0.88 ??02/09/2022:?1.0 DIAGNOSIS Chief?Complaint:?N18.6?End?stage?renal?disease Patient?data?updated?05/06/2022?at?1:30?PM Signed?By:?Rolo,?Shira,?DRIVER STARTING GATE??on?05/06/2022?1:31:35?PM END OF DOCUMENT
--- OUTSIDE RECORDS SUMMARY | 2023-12-28 16:34 | XMS_ITS ---
Author Name Tucker Chalino Address [address] [place] [id number] Phone [phone] Organization [facility] e, NA DOCUMENT DISCLAIMER Multiple document versions may exist, please be sure you review the latest version. The information in the [facility] Progress Note Document represents a providers documented clinical note containing certain health and medical information. It may not contain the complete medical history for the patient and should be independently verified. The represented time in the document is Eastern Time PROVIDER ROUNDING NOTE BASIC Patient:?SINDI?FERNANDA,?1960,?62y,?M Dialysis?Location:?[facility] Attending?Cco & President:?Cynthia?Buzz Service?Date:?06/01/2022 Service?Provider:?Chalino?Tucker,? I?saw?the?patient?remotely?today?for?a?telehealth?visit ?using?an?audiovisual?platform?during?the?COVID-19?PHE. OVERVIEW The?patient?presented?with?ESRD?on?dialysis Primary?cause?of?renal?failure:?Type?2?diabetes?mellitus&#16 0;with?diabetic?chronic?kidney?disease Comments:?05/06/22-?Tolerating?treatment?well.?Denies?any?concerns. 04/20/22?-?Large?IDWG?today.??Discussed?in?detail?with patient.? 04/08/22?-?Increase?calcitriol?to?0.5mcg?for?low?Ca?and& #160;elevated?PTH.?Stable?treatment. 04/01/22?-?Stable?treatment,?no?complaints.??Feeling?well on?off?days. 03/16/22?-?Ending?treatment?below?EDW?with?stable?BP.?& #160;Will?adjust?EDW.??Stable?treatment?today?with?no?complaints. 03/09?Overall?stable/no?acute?issues 05/27/22 Doing?all?right?on?dialysis,?but?feels?dizzy?and?fatigu ed?after?HD,?currently?on?Losartan?and?Amlodipine,?he?w as?asked?to?keep?a?log?of?blood?pressure?and?bring ?it?next?week.?Phos?running?high. 06/01/ Blood?pressure?stable.?He?forgot?to?bring?the?blood?pressure?log. DIALYSIS?PRESCRIPTION ??IHD?3x?Week?Start?date:?05/20/22 ??Dialyzer:?180NRe?Optiflux ??BFR:?450 ??DFR:?Manual?500 ??Potassium:?2.0 ??Sodium:?137 ??EDW:?98.5 ??Duration:?4:00 ??Calcium:?2.5 ??Bicarb:?35 ??Rx?updated?on:?05/20/2022 TREATMENT?ASSESSMENT BP?Stand?Pre ??05/27/2022:?130/60 ??05/25/2022:?130/58 BP?Sit?Pre ??05/29/2022:?157/76 ??05/27/2022:?154/67 ??05/25/2022:?160/77 BP?Stand?Post ??05/29/2022:?117/77 ??05/27/2022:?102/65 ??05/25/2022:?102/77 BP?Sit?Post ??05/29/2022:?117/88 ??05/27/2022:?94/45 ??05/25/2022:?110/59 Tx?Duration ??05/29/2022:?4:00 ??05/27/2022:?3:53 ??05/25/2022:?3:58 Missed?Treatments 0?-?last?30?days 0?-?last?60?days FLUID?ASSESSMENT EDW?(kg) ??05/29/2022:?98.5 ??05/27/2022:?98.5 ??05/25/2022:?98.5 Weight?Pre?(kg) ??05/29/2022:?100.5 ??05/27/2022:?101.8 ??05/25/2022:?102.1 Weight?Post?(kg) ??05/29/2022:?97.9 ??05/27/2022:?98.0 ??05/25/2022:?98.1 PWV?(kg) ??05/29/2022:?-0.6 ??05/27/2022:?-0.5 ??05/25/2022:?-0.4 UF?Rate?(mL/kg/hr) ??05/29/2022:?6.6 ??05/27/2022:?10 ??05/25/2022:?10.3 ADEQUACY?ASSESSMENT spKt/V,?URR ??05/11/2022:?1.73,?76.0 ??04/06/2022:?1.61,?74.0 ??03/16/2022:?1.54,?73.0 ACCESS?ASSESSMENT ??Access?Type:?AVFistula ??Access?SubType:?Standard ??Access?Status:?Active?(In?Use)?-?09/14/2017 ??Access?Location:?Left?Forearm ??Created:?04/13/2017 Flow ??05/08/2022:?1027 ??05/06/2022:?1293 ??04/08/2022:?936 ANEMIA?ASSESSMENT HGB,?TSAT ??05/25/2022:?11.0,?- ??05/18/2022:?11.2,?- ??05/11/2022:?11.8,?50.0 ?? Ferritin ??05/11/2022:?1124.0 ??04/06/2022:?823.0 ??03/16/2022:?880.0 Mircera,?IVP?(mcg) ??04/24/2022:?50 ??04/10/2022:?50 ??03/27/2022:?50 Iron?Sucrose?(Venofer)?(mg) ??05/29/2022:?50 ??05/01/2022:?50 ??04/24/2022:?50 BMM?ASSESSMENT Phosphorus,?Calcium ??05/25/2022:?-,?8.4 ??05/18/2022:?-,?8.7 ??05/11/2022:?6.7,?8.7 ?? PTH,?Intact ??05/11/2022:?344.0 ??04/06/2022:?447.0 ??03/16/2022:?365.0 Vitamin?D?(Calcitriol)?Oral?(mcg) ??05/29/2022:?0.50 ??05/27/2022:?0.50 ??05/25/2022:?0.50 NUTRITION?ASSESSMENT Albumin,?Potassium ??05/11/2022:?4.3,?5.3 ??04/06/2022:?4.1,?5.0 ??03/16/2022:?4.1,?5.0 ?? eNPCR ??05/11/2022:?1.15 ??04/06/2022:?0.97 ??03/16/2022:?0.88 DIAGNOSIS Chief?Complaint:?N18.6?End?stage?renal?disease Patient?data?updated?06/01/2022?at?1:12?PM Signed?By:?Tucker,?Chalino,???on?06/01/2022?1:13:53?PM END OF DOCUMENT
--- OUTSIDE RECORDS SUMMARY | 2023-12-28 16:34 | XMS_ITS ---
Author Name Simi Mcfadden Address [address] [place] [id number] Phone [phone] Organization [facility] e, NA DOCUMENT DISCLAIMER Multiple document versions may exist, please be sure you review the latest version. The information in the [facility] Progress Note Document represents a providers documented clinical note containing certain health and medical information. It may not contain the complete medical history for the patient and should be independently verified. The represented time in the document is Eastern Time PROVIDER ROUNDING NOTE BASIC Patient:?SINDI?FERNANDA,?1960,?62y,?M Dialysis?Location:?[facility] Attending?Conference Assistant:?Cynthia?Buzz [employer]?Date:?08/03/2022 Service?Provider:?Simi?Lesa,?ELECTRICIAN OUTSIDE I?met?face?to?face?with?the?patient?today. OVERVIEW The?patient?presented?with?ESRD?on?dialysis Primary?cause?of?renal?failure:?Type?2?diabetes?mellitus&#16 0;with?diabetic?chronic?kidney?disease Comments:?08/03/22?-?High?IDWG?discussed?with?pt. 07/27/22?-?Reports?difficulty?managing?blood?sugar?lately,?vargas s?an?appt?with?diabetes?educator?and?PCP?tomorrow.? 06/15/22-Tolerating?HD?well?and?denies?any?new?complaints.? 06/10/22-?Tolerating?HD?well?and?denies?any?new?complaints. Metabolic?and?volume?parameters?reviewed.? Education?provided?on?reviewed?monthly?labs?and?UFG.?No changes?made 05/06/22-?Tolerating?treatment?well.?Denies?any?concerns. 04/20/22?-?Large?IDWG?today.??Discussed?in?detail?with patient.? 04/08/22?-?Increase?calcitriol?to?0.5mcg?for?low?Ca?and& #160;elevated?PTH.?Stable?treatment. 04/01/22?-?Stable?treatment,?no?complaints.??Feeling?well on?off?days. 03/16/22?-?Ending?treatment?below?EDW?with?stable?BP.?& #160;Will?adjust?EDW.??Stable?treatment?today?with?no?complaints. 03/09?Overall?stable/no?acute?issues 05/27/22 Doing?all?right?on?dialysis,?but?feels?dizzy?and?fatigu ed?after?HD,?currently?on?Losartan?and?Amlodipine,?he?w as?asked?to?keep?a?log?of?blood?pressure?and?bring ?it?next?week.?Phos?running?high. 06/01/ Blood?pressure?stable.?He?forgot?to?bring?the?blood?pressure?log.? Medications?and?labs?reviewed. DIALYSIS?PRESCRIPTION ??IHD?3x?Week?Start?date:?07/22/22 ??Dialyzer:?180NRe?Optiflux ??BFR:?450 ??DFR:?Manual?500 ??Potassium:?2.0 ??Sodium:?137 ??EDW:?97 ??Duration:?4:00 ??Calcium:?2.5 ??Bicarb:?35 ??Rx?updated?on:?07/22/2022 TREATMENT?ASSESSMENT BP?Stand?Pre ??07/31/2022:?92/58 ??07/29/2022:?158/87 ??07/27/2022:?160/90 BP?Sit?Pre ??07/31/2022:?112/71 ??07/29/2022:?147/66 ??07/27/2022:?142/72 BP?Stand?Post ??07/31/2022:?122/64 ??07/29/2022:?105/71 ??07/27/2022:?125/79 BP?Sit?Post ??07/31/2022:?124/65 ??07/29/2022:?122/85 ??07/27/2022:?118/65 Tx?Duration ??07/31/2022:?4:06 ??07/29/2022:?4:01 ??07/27/2022:?3:56 Missed?Treatments 0?-?last?30?days 0?-?last?60?days FLUID?ASSESSMENT EDW?(kg) ??07/31/2022:?97.0 ??07/29/2022:?97.0 ??07/27/2022:?97.0 Weight?Pre?(kg) ??07/31/2022:?99.4 ??07/29/2022:?99.5 ??07/27/2022:?101.1 Weight?Post?(kg) ??07/31/2022:?96.9 ??07/29/2022:?96.6 ??07/27/2022:?97.3 PWV?(kg) ??07/31/2022:?-0.1 ??07/29/2022:?-0.4 ??07/27/2022:?0.3 UF?Rate?(mL/kg/hr) ??07/31/2022:?6.3 ??07/29/2022:?7.5 ??07/27/2022:?9.9 ADEQUACY?ASSESSMENT spKt/V,?URR ??07/06/2022:?1.63,?74.0 ??06/08/2022:?1.71,?76.0 ??05/11/2022:?1.73,?76.0 ACCESS?ASSESSMENT ??Access?Type:?AVFistula ??Access?SubType:?Standard ??Access?Status:?Active?(In?Use)?-?09/14/2017 ??Access?Location:?Left?Forearm ??Created:?04/13/2017 Flow ??07/01/2022:?1348 ??06/03/2022:?1029 ??05/08/2022:?1027 ANEMIA?ASSESSMENT HGB ??07/27/2022:?10.7 ??07/20/2022:?10.6 ??07/15/2022:?10.8 ?? Ferritin ??07/06/2022:?1062.0 ??06/08/2022:?1599.0 ??05/11/2022:?1124.0 Mircera,?IVP?(mcg) ??07/24/2022:?75 ??07/17/2022:?50 ??07/03/2022:?50 Iron?Sucrose?(Venofer)?(mg) ??07/31/2022:?50 ??07/24/2022:?50 ??07/17/2022:?50 BMM?ASSESSMENT Calcium ??07/27/2022:?8.7 ??07/20/2022:?8.5 ??07/15/2022:?8.4 ?? PTH,?Intact ??07/06/2022:?419.0 ??06/08/2022:?356.0 ??05/11/2022:?344.0 Vitamin?D?(Calcitriol)?Oral?(mcg) ??07/31/2022:?0.50 ??07/29/2022:?0.50 ??07/27/2022:?0.50 NUTRITION?ASSESSMENT Albumin,?Potassium ??07/06/2022:?4.0,?4.3 ??06/08/2022:?3.5,?4.5 ??05/11/2022:?4.3,?5.3 ?? eNPCR ??07/06/2022:?0.95 ??06/08/2022:?0.87 ??05/11/2022:?1.15 DIAGNOSIS Chief?Complaint:?N18.6?End?stage?renal?disease Patient?data?updated?08/03/2022?at?12:05?PM Signed?By:?Lesa,?Simi,?ELECTRICIAN OUTSIDE??on?08/03/2022?12:05:46 PM END OF DOCUMENT
--- OUTSIDE RECORDS SUMMARY | 2023-12-28 16:34 | XMS_ITS ---
Author Name Simi Mcfadden Address [address] [place] [address] Phone [phone] Organization [facility] e, NA DOCUMENT DISCLAIMER Multiple document versions may exist, please be sure you review the latest version. The information in the [facility] Progress Note Document represents a providers documented clinical note containing certain health and medical information. It may not contain the complete medical history for the patient and should be independently verified. The represented time in the document is Eastern Time PROVIDER ROUNDING NOTE BASIC Patient:?SINDI?FERNANDA,?1960,?63y,?M Dialysis?Location:?[facility] Attending?Protective Signal Repairer:?Too?Eddie Service?Date:?08/03/2023 Service?Provider:?Simi?Lesa,?SEWING MACHINE MAINTENANCE MECHANIC I?met?face?to?face?with?the?patient?today. OVERVIEW The?patient?presented?with?ESRD?on?dialysis Primary?cause?of?renal?failure:?Type?2?diabetes?mellitus&#16 0;with?diabetic?chronic?kidney?disease Comments:?08/03/23?-?having?diarrhea?again.?Given?loperamide?with?effect.? 07/25?doing?ok.?Some?diarrhea?that?is?resolving? Medications?and?labs?reviewed. LAST?HOSPITALIZATION Discharge?Diagnosis:?R78.81?Bacteremia Admission?Date?08/15/22 Discharge?Date?08/18/22 DIALYSIS?PRESCRIPTION ??IHD?3x?Week?Start?date:?04/04/23 ??Dialyzer:?180NRe?Optiflux ??BFR:?450 ??DFR:?Manual?500 ??Potassium:?2.0 ??Sodium:?137 ??EDW:?98.5 ??Duration:?4:00 ??Calcium:?2.5 ??Bicarb:?35 ??Rx?updated?on:?04/04/2023 TREATMENT?ASSESSMENT BP?Stand?Pre ??08/01/2023:?140/101 ??07/29/2023:?145/59 ??07/27/2023:?146/61 BP?Sit?Pre ??08/01/2023:?150/75 ??07/29/2023:?132/59 ??07/27/2023:?148/57 BP?Stand?Post ??08/01/2023:?116/56 ??07/29/2023:?110/63 ??07/27/2023:?121/61 BP?Sit?Post ??08/01/2023:?177/93 ??07/29/2023:?143/66 ??07/27/2023:?127/74 Tx?Duration ??08/01/2023:?4:20 ??07/29/2023:?4:01 ??07/27/2023:?4:01 Missed?Treatments 0?-?last?30?days 0?-?last?60?days FLUID?ASSESSMENT EDW?(kg) ??08/01/2023:?98.5 ??07/29/2023:?98.5 ??07/27/2023:?98.5 Weight?Pre?(kg) ??08/01/2023:?102.1 ??07/29/2023:?101.2 ??07/27/2023:?101.5 Weight?Post?(kg) ??08/01/2023:?98.5 ??07/29/2023:?98.3 ??07/27/2023:?98.2 PWV?(kg) ??08/01/2023:?0.0 ??07/29/2023:?-0.2 ??07/27/2023:?-0.3 UF?Rate?(mL/kg/hr) ??08/01/2023:?8.4 ??07/29/2023:?7.3 ??07/27/2023:?8.4 ADEQUACY?ASSESSMENT spKt/V,?URR ??07/04/2023:?1.72,?77.0 ??06/22/2023:?1.72,?76.0 ??06/06/2023:?1.17,?62.0 ACCESS?ASSESSMENT ??Access?Type:?AVFistula ??Access?SubType:?Standard ??Access?Status:?Active?(In?Use)?-?09/14/2017 ??Access?Location:?Left?Forearm ??Created:?04/13/2017 Flow ??08/03/2023:?841 ??07/06/2023:?842 ??06/08/2023:?811 ANEMIA?ASSESSMENT HGB ??07/25/2023:?9.5 ??07/18/2023:?9.4 ??07/11/2023:?9.1 ?? Ferritin ??07/04/2023:?1234.0 ??06/06/2023:?831.0 ??05/04/2023:?953.0 Mircera,?IVP?(mcg) ??07/29/2023:?75 ??07/15/2023:?75 ??05/06/2023:?75 Iron?Sucrose?(Venofer)?(mg) ??07/22/2023:?50 ??07/15/2023:?50 ??07/08/2023:?50 BMM?ASSESSMENT Calcium ??07/25/2023:?9.2 ??07/18/2023:?8.7 ??07/11/2023:?8.7 ?? PTH,?Intact ??07/04/2023:?440.0 ??06/06/2023:?382.0 ??05/04/2023:?379.0 Vitamin?D?(Calcitriol)?Oral?(mcg) ??08/01/2023:?0.75 ??07/29/2023:?0.75 ??07/27/2023:?0.75 NUTRITION?ASSESSMENT Albumin,?Potassium ??07/04/2023:?4.0,?5.0 ??06/06/2023:?4.1,?5.0 ??05/04/2023:?4.3,?4.6 ?? eNPCR ??07/04/2023:?0.92 ??06/22/2023:?1.21 ??06/06/2023:?1.24 DIAGNOSIS Chief?Complaint:?N18.6?End?stage?renal?disease Patient?data?updated?08/03/2023?at?9:39?AM Signed?By:?Lesa,?Simi,?SEWING MACHINE MAINTENANCE MECHANIC??on?08/03/2023?9:40:16?AM END OF DOCUMENT
--- OUTSIDE RECORDS SUMMARY | 2023-12-28 16:34 | XMS_ITS ---
Author Name Too Morgan Address [address] [place] [address] Phone [phone] Organization [facility] e, NA DOCUMENT DISCLAIMER Multiple document versions may exist, please be sure you review the latest version. The information in the [facility] Progress Note Document represents a providers documented clinical note containing certain health and medical information. It may not contain the complete medical history for the patient and should be independently verified. The represented time in the document is Eastern Time PROVIDER ROUNDING NOTE COMPREHENSIVE Patient:?ISNDI?FERNANDA,?1960,?62y,?M Dialysis?[facility] Attending?Trouble Lineman:?Too?Eddie Service?Date:?12/27/2022 Service?Provider:?Too?Eddie,? I?met?face?to?face?with?the?patient?today. OVERVIEW The?patient?presented?with?ESRD?on?dialysis Primary?cause?of?renal?failure:?Type?2?diabetes?mellitus&#16 0;with?diabetic?chronic?kidney?disease Comments:?12/20/22?-?Stable?dialysis?treatment.? 12/08/22?-?Stable?dialysis?treatment?with?no?complaints?or&#16 0;acute?issues.?Access?flow?improved. 8/2.?Needs?new?access?flow?to?decide?if?he?needs?another?fistulogram? Medications?and?labs?reviewed. LAST?HOSPITALIZATION Discharge?Diagnosis:?R78.81?Bacteremia Admission?Date?08/15/22 Discharge?Date?08/18/22 DIALYSIS?PRESCRIPTION ??IHD?3x?Week?Start?date:?11/10/22 ??Dialyzer:?180NRe?Optiflux ??BFR:?450 ??DFR:?Manual?500 ??Potassium:?2.0 ??Sodium:?137 ??EDW:?98 ??Duration:?4:00 ??Calcium:?2.5 ??Bicarb:?35 ??Rx?updated?on:?11/08/2022 TREATMENT?ASSESSMENT Blood?pressure?controlled.?No?changes?indicated.? BP?Stand?Pre ??12/24/2022:?156/74 BP?Sit?Pre ??12/24/2022:?174/86 ??12/22/2022:?173/87 ??12/20/2022:?155/71 BP?Stand?Post ??12/24/2022:?152/67 ??12/22/2022:?141/62 BP?Sit?Post ??12/24/2022:?141/75 ??12/22/2022:?126/54 ??12/20/2022:?140/78 Tx?Duration ??12/24/2022:?3:59 ??12/22/2022:?3:57 ??12/20/2022:?4:14 Missed?Treatments 0?-?last?30?days 0?-?last?60?days FLUID?ASSESSMENT Fluid?status?acceptable.?Interdialytic?weight?gain?acceptable.?No ?changes?indicated.? EDW?(kg) ??12/24/2022:?98.0 ??12/22/2022:?98.0 ??12/20/2022:?98.0 Weight?Pre?(kg) ??12/24/2022:?100.7 ??12/22/2022:?101.2 ??12/20/2022:?101.9 Weight?Post?(kg) ??12/24/2022:?97.9 ??12/22/2022:?98.5 ??12/20/2022:?98.7 PWV?(kg) ??12/24/2022:?-0.1 ??12/22/2022:?0.5 ??12/20/2022:?0.7 UF?Rate?(mL/kg/hr) ??12/24/2022:?7.2 ??12/22/2022:?6.9 ??12/20/2022:?7.7 ADEQUACY?ASSESSMENT Adequacy?target?met.?Prescription?compliance?acceptable.?No?changes?indicated.? spKt/V,?URR ??12/06/2022:?1.44,?71.0 ??11/03/2022:?1.47,?72.0 ??10/04/2022:?1.62,?74.0 ACCESS?ASSESSMENT ??Access?Type:?AVFistula ??Access?SubType:?Standard ??Access?Status:?Active?(In?Use)?-?09/14/2017 ??Access?Location:?Left?Forearm ??Created:?04/13/2017 Flow ??12/08/2022:?1039 ??09/02/2022:?903 ??08/05/2022:?950 Vascular?access?reviewed.?Current?access?is?permanent?and?functioning?well. ANEMIA?ASSESSMENT HGB?at?goal.?Iron?parameters?acceptable.?MICHEL?dose?adequate.& #160;No?changes?indicated.? HGB,?TSAT ??12/20/2022:?9.9,?- ??12/13/2022:?10.0,?- ??12/06/2022:?10.1,?35.0 ?? Ferritin ??12/06/2022:?871.0 ??11/03/2022:?1068.0 ??10/04/2022:?1211.0 Mircera,?IVP?(mcg) ??12/10/2022:?75 ??11/12/2022:?75 ??10/15/2022:?75 Iron?Sucrose?(Venofer)?(mg) ??12/24/2022:?50 ??12/17/2022:?50 ??12/10/2022:?50 BMM?ASSESSMENT Comments:?12/27/22?Will?increase?calcitriol?to?0.75mcg?each?treatment PTH?elevated.?Calcium?controlled.?Phosphorus?elevated.?BMM?meds&# 160;adherence?acceptable.?Counseled?pt?on?meds?adherence.? Phosphorus,?Calcium ??12/20/2022:?-,?8.5 ??12/13/2022:?-,?8.3 ??12/06/2022:?6.2,?8.3 ?? PTH,?Intact ??12/06/2022:?565.0 ??11/03/2022:?413.0 ??10/04/2022:?524.0 Vitamin?D?(Calcitriol)?Oral?(mcg) ??12/24/2022:?0.50 ??12/22/2022:?0.50 ??12/20/2022:?0.50 NUTRITION?ASSESSMENT Potassium?controlled.?Albumin?controlled.?No?changes?indicated.? Albumin,?Potassium ??12/06/2022:?4.1,?4.3 ??11/03/2022:?4.4,?4.8 ??10/04/2022:?3.9,?4.2 ?? eNPCR ??12/06/2022:?1.05 ??11/03/2022:?0.98 ??10/04/2022:?0.94 DIAGNOSIS Chief?Complaint:?N18.6?End?stage?renal?disease Patient?data?updated?12/27/2022?at?10:16?AM Signed?By:?Eddie,?Too,???on?12/27/2022?10:23:03 AM END OF DOCUMENT
--- OUTSIDE RECORDS SUMMARY | 2023-12-28 16:34 | XMS_ITS ---
Author Name Too Morgan Address [address] [place] [address] Phone [phone] [facility] e, NA DOCUMENT DISCLAIMER Multiple document versions may exist, please be sure you review the latest version. The information in the [facility] Progress Note Document represents a providers documented clinical note containing certain health and medical information. It may not contain the complete medical history for the patient and should be independently verified. The represented time in the document is Eastern Time PROVIDER ROUNDING NOTE BASIC Patient:?SINDI?FERNANDA,?1960,?63y,?M Dialysis?[facility]:?[facility] Attending?Geosciences Faculty Member:?Too?Eddie Service?Date:?05/18/2023 Service?Provider:?Too?Eddie,? I?met?face?to?face?with?the?patient?today. OVERVIEW The?patient?presented?with?ESRD?on?dialysis Primary?cause?of?renal?failure:?Type?2?diabetes?mellitus&#16 0;with?diabetic?chronic?kidney?disease Comments:?05/18/23?patient's?diarrhea?has?resolved.?He?had?no ?prior?antibiotics.?He?can't?comment?on?whether?it?was& #160;bloody?or?not?because?of?his?visual?impairment.?It&#160 ;seems?to?be?resolving,?however.?If?it?occurs,?we?can send?stool?samples. DIALYSIS?PRESCRIPTION ??IHD?3x?Week?Start?date:?04/04/23 ??Dialyzer:?180NRe?Optiflux ??BFR:?450 ??DFR:?Manual?500 ??Potassium:?2.0 ??Sodium:?137 ??EDW:?98.5 ??Duration:?4:00 ??Calcium:?2.5 ??Bicarb:?35 ??Rx?updated?on:?04/04/2023 TREATMENT?ASSESSMENT BP?Stand?Pre ??05/16/2023:?175/81 ??05/13/2023:?133/66 ??05/11/2023:?145/71 BP?Sit?Pre ??05/16/2023:?177/84 ??05/13/2023:?130/58 ??05/11/2023:?149/67 BP?Stand?Post ??05/16/2023:?143/60 ??05/13/2023:?103/55 ??05/11/2023:?121/57 BP?Sit?Post ??05/16/2023:?163/79 ??05/13/2023:?154/79 ??05/11/2023:?141/60 Tx?Duration ??05/16/2023:?4:05 ??05/13/2023:?4:04 ??05/11/2023:?4:01 Missed?Treatments 0?-?last?30?days 0?-?last?60?days FLUID?ASSESSMENT EDW?(kg) ??05/16/2023:?98.5 ??05/13/2023:?98.5 ??05/11/2023:?98.5 Weight?Pre?(kg) ??05/16/2023:?102.1 ??05/13/2023:?101.9 ??05/11/2023:?101.6 Weight?Post?(kg) ??05/16/2023:?99.0 ??05/13/2023:?98.7 ??05/11/2023:?98.9 PWV?(kg) ??05/16/2023:?0.5 ??05/13/2023:?0.2 ??05/11/2023:?0.4 UF?Rate?(mL/kg/hr) ??05/16/2023:?7.7 ??05/13/2023:?8 ??05/11/2023:?6.8 ADEQUACY?ASSESSMENT spKt/V,?URR ??05/04/2023:?1.79,?78.0 ??04/04/2023:?1.6,?74.0 ??03/07/2023:?1.79,?78.0 ACCESS?ASSESSMENT ??Access?Type:?AVFistula ??Access?SubType:?Standard ??Access?Status:?Active?(In?Use)?-?09/14/2017 ??Access?Location:?Left?Forearm ??Created:?04/13/2017 Flow ??05/09/2023:?949 ??04/06/2023:?973 ??03/09/2023:?958 ANEMIA?ASSESSMENT HGB,?TSAT ??05/09/2023:?11.4,?- ??05/04/2023:?11.8,?33.0 ??04/27/2023:?10.7,?- ?? Ferritin ??05/04/2023:?953.0 ??04/04/2023:?863.0 ??03/07/2023:?726.0 Mircera,?IVP?(mcg) ??05/06/2023:?75 ??04/22/2023:?75 ??04/08/2023:?75 Iron?Sucrose?(Venofer)?(mg) ??05/06/2023:?50 ??04/29/2023:?50 ??04/22/2023:?50 BMM?ASSESSMENT Phosphorus,?Calcium ??05/09/2023:?-,?8.5 ??05/04/2023:?6.3,?8.5 ??04/27/2023:?-,?8.3 ?? PTH,?Intact ??05/04/2023:?379.0 ??04/04/2023:?366.0 ??03/07/2023:?429.0 Vitamin?D?(Calcitriol)?Oral?(mcg) ??05/16/2023:?0.75 ??05/13/2023:?0.75 ??05/11/2023:?0.75 NUTRITION?ASSESSMENT Albumin,?Potassium ??05/04/2023:?4.3,?4.6 ??04/04/2023:?4.3,?5.0 ??03/07/2023:?4.2,?5.2 ?? eNPCR ??05/04/2023:?1.33 ??04/04/2023:?1.14 ??03/07/2023:?1.21 Patient?data?updated?05/18/2023?at?9:57?AM Signed?By:?Eddie,?Too,???on?05/18/2023?9:58:26?AM END OF DOCUMENT
--- OUTSIDE RECORDS SUMMARY | 2023-12-28 16:35 | XMS_ITS ---
Author Name Too Morgan Address [address] [place] [address] Phone [phone] Organization [facility] e, NA DOCUMENT DISCLAIMER Multiple document versions may exist, please be sure you review the latest version. The information in the [facility] Progress Note Document represents a providers documented clinical note containing certain health and medical information. It may not contain the complete medical history for the patient and should be independently verified. The represented time in the document is Eastern Time PROVIDER ROUNDING NOTE COMPREHENSIVE Patient:?SINDI?FERNANDA,?1960,?63y,?M Dialysis?Location:?[facility] Attending?Pick Up And Delivery Driver:?Jose A Service?Date:?08/26/2023 Service?Provider:?Too?Eddie,? I?met?face?to?face?with?the?patient?today. OVERVIEW The?patient?presented?with?ESRD?on?dialysis Primary?cause?of?renal?failure:?Type?2?diabetes?mellitus&#16 0;with?diabetic?chronic?kidney?disease Comments:?08/25?overall?feeling?ok LAST?HOSPITALIZATION Discharge?Diagnosis:?R78.81?Bacteremia Admission?Date?08/15/22 Discharge?Date?08/18/22 DIALYSIS?PRESCRIPTION ??IHD?3x?Week?Start?date:?04/04/23 ??Dialyzer:?180NRe?Optiflux ??BFR:?450 ??DFR:?Manual?500 ??Potassium:?2.0 ??Sodium:?137 ??EDW:?98.5 ??Duration:?4:00 ??Calcium:?2.5 ??Bicarb:?35 ??Rx?updated?on:?04/04/2023 TREATMENT?ASSESSMENT Blood?pressure?controlled.?No?changes?indicated.? BP?Stand?Pre ??08/24/2023:?142/69 ??08/22/2023:?143/57 ??08/19/2023:?159/68 BP?Sit?Pre ??08/24/2023:?156/76 ??08/22/2023:?141/66 ??08/19/2023:?141/85 BP?Stand?Post ??08/24/2023:?121/63 ??08/22/2023:?118/64 ??08/19/2023:?120/66 BP?Sit?Post ??08/24/2023:?102/58 ??08/22/2023:?144/80 ??08/19/2023:?123/70 Tx?Duration ??08/24/2023:?3:58 ??08/22/2023:?4:02 ??08/19/2023:?4:01 Missed?Treatments 0?-?last?30?days 0?-?last?60?days FLUID?ASSESSMENT Fluid?status?acceptable.?Interdialytic?weight?gain?not?acceptable .?Optimal?weight?discussed.?Diet?reviewed?with?patient.? EDW?(kg) ??08/24/2023:?98.5 ??08/22/2023:?98.5 ??08/19/2023:?98.5 Weight?Pre?(kg) ??08/24/2023:?101.1 ??08/22/2023:?102.7 ??08/19/2023:?100.4 Weight?Post?(kg) ??08/24/2023:?98.3 ??08/22/2023:?99.8 ??08/19/2023:?98.7 PWV?(kg) ??08/24/2023:?-0.2 ??08/22/2023:?1.3 ??08/19/2023:?0.2 UF?Rate?(mL/kg/hr) ??08/24/2023:?7.2 ??08/22/2023:?7.2 ??08/19/2023:?4.3 ADEQUACY?ASSESSMENT Adequacy?target?met.?Prescription?compliance?acceptable.?No?changes?indicated.? spKt/V,?URR ??08/01/2023:?1.92,?80.0 ??07/04/2023:?1.72,?77.0 ??06/22/2023:?1.72,?76.0 ACCESS?ASSESSMENT ??Access?Type:?AVFistula ??Access?SubType:?Standard ??Access?Status:?Active?(In?Use)?-?09/14/2017 ??Access?Location:?Left?Forearm ??Created:?04/13/2017 Flow ??08/03/2023:?841 ??07/06/2023:?842 ??06/08/2023:?811 Vascular?access?reviewed.?Current?access?is?permanent?and?functioning?well. ANEMIA?ASSESSMENT HGB?at?goal.?Iron?parameters?acceptable.?MICHEL?dose?adequate.& #160;No?changes?indicated.? HGB ??08/22/2023:?10.5 ??08/15/2023:?10.1 ??08/10/2023:?10.2 ?? Ferritin ??08/01/2023:?1221.0 ??07/04/2023:?1234.0 ??06/06/2023:?831.0 Mircera,?IVP?(mcg) ??08/12/2023:?75 ??07/29/2023:?75 ??07/15/2023:?75 Iron?Sucrose?(Venofer)?(mg) ??07/22/2023:?50 ??07/15/2023:?50 ??07/08/2023:?50 BMM?ASSESSMENT PTH?controlled.?Calcium?controlled.?No?changes?indicated.? Calcium ??08/22/2023:?8.6 ??08/15/2023:?8.7 ??08/10/2023:?8.7 ?? PTH,?Intact ??08/01/2023:?411.0 ??07/04/2023:?440.0 ??06/06/2023:?382.0 Vitamin?D?(Calcitriol)?Oral?(mcg) ??08/24/2023:?0.75 ??08/22/2023:?0.75 ??08/19/2023:?0.75 NUTRITION?ASSESSMENT Potassium?controlled.?Albumin?controlled.?No?changes?indicated.? Albumin,?Potassium ??08/01/2023:?4.2,?4.6 ??07/04/2023:?4.0,?5.0 ??06/06/2023:?4.1,?5.0 ?? eNPCR ??08/01/2023:?1.08 ??07/04/2023:?0.92 ??06/22/2023:?1.21 PHYSICAL?EXAM Exam?Performed.?Vital?Signs?Reviewed.?Lungs?-?Clear. DIAGNOSIS Chief?Complaint:?N18.6?End?stage?renal?disease Patient?data?updated?08/26/2023?at?9:34?AM Signed?By:?Eddie,?Too,???on?08/26/2023?9:36:38?AM END OF DOCUMENT
--- OUTSIDE RECORDS SUMMARY | 2023-12-28 16:35 | XMS_ITS ---
Author Name Simi Mcfadden Address [address] [place] [address] Phone [phone] Organization [facility] e, NA DOCUMENT DISCLAIMER Multiple document versions may exist, please be sure you review the latest version. The information in the [facility] Progress Note Document represents a providers documented clinical note containing certain health and medical information. It may not contain the complete medical history for the patient and should be independently verified. The represented time in the document is Eastern Time PROVIDER ROUNDING NOTE BASIC Patient:?SINDI?FERNANDA,?1960,?63y,?M Dialysis?Location:?[facility] Attending?Auto Damage Adjuster:?Too?Eddie Service?Date:?08/29/2023 Service?Provider:?Simi?Lesa,?ASSEMBLY TECHNICIAN I?met?face?to?face?with?the?patient?today. OVERVIEW The?patient?presented?with?ESRD?on?dialysis Primary?cause?of?renal?failure:?Type?2?diabetes?mellitus&#16 0;with?diabetic?chronic?kidney?disease Comments:?08/29/23?-?Stable?dialysis?treatment.?AVF?functioning&#1 60;well.?Reaching?EDW. 08/25?overall?feeling?ok Medications?and?labs?reviewed. LAST?HOSPITALIZATION Discharge?Diagnosis:?R78.81?Bacteremia Admission?Date?08/15/22 Discharge?Date?08/18/22 DIALYSIS?PRESCRIPTION ??IHD?3x?Week?Start?date:?04/04/23 ??Dialyzer:?180NRe?Optiflux ??BFR:?450 ??DFR:?Manual?500 ??Potassium:?2.0 ??Sodium:?137 ??EDW:?98.5 ??Duration:?4:00 ??Calcium:?2.5 ??Bicarb:?35 ??Rx?updated?on:?04/04/2023 TREATMENT?ASSESSMENT BP?Stand?Pre ??08/26/2023:?139/70 ??08/24/2023:?142/69 ??08/22/2023:?143/57 BP?Sit?Pre ??08/26/2023:?132/72 ??08/24/2023:?156/76 ??08/22/2023:?141/66 BP?Stand?Post ??08/26/2023:?136/50 ??08/24/2023:?121/63 ??08/22/2023:?118/64 BP?Sit?Post ??08/26/2023:?134/63 ??08/24/2023:?102/58 ??08/22/2023:?144/80 Tx?Duration ??08/26/2023:?4:05 ??08/24/2023:?3:58 ??08/22/2023:?4:02 Missed?Treatments 0?-?last?30?days 0?-?last?60?days FLUID?ASSESSMENT EDW?(kg) ??08/26/2023:?98.5 ??08/24/2023:?98.5 ??08/22/2023:?98.5 Weight?Pre?(kg) ??08/26/2023:?100.7 ??08/24/2023:?101.1 ??08/22/2023:?102.7 Weight?Post?(kg) ??08/26/2023:?98.2 ??08/24/2023:?98.3 ??08/22/2023:?99.8 PWV?(kg) ??08/26/2023:?-0.3 ??08/24/2023:?-0.2 ??08/22/2023:?1.3 UF?Rate?(mL/kg/hr) ??08/26/2023:?6.2 ??08/24/2023:?7.2 ??08/22/2023:?7.2 ADEQUACY?ASSESSMENT spKt/V,?URR ??08/01/2023:?1.92,?80.0 ??07/04/2023:?1.72,?77.0 ??06/22/2023:?1.72,?76.0 ACCESS?ASSESSMENT ??Access?Type:?AVFistula ??Access?SubType:?Standard ??Access?Status:?Active?(In?Use)?-?09/14/2017 ??Access?Location:?Left?Forearm ??Created:?04/13/2017 Flow ??08/03/2023:?841 ??07/06/2023:?842 ??06/08/2023:?811 ANEMIA?ASSESSMENT HGB ??08/22/2023:?10.5 ??08/15/2023:?10.1 ??08/10/2023:?10.2 ?? Ferritin ??08/01/2023:?1221.0 ??07/04/2023:?1234.0 ??06/06/2023:?831.0 Mircera,?IVP?(mcg) ??08/26/2023:?75 ??08/12/2023:?75 ??07/29/2023:?75 Iron?Sucrose?(Venofer)?(mg) ??07/22/2023:?50 ??07/15/2023:?50 ??07/08/2023:?50 BMM?ASSESSMENT Calcium ??08/22/2023:?8.6 ??08/15/2023:?8.7 ??08/10/2023:?8.7 ?? PTH,?Intact ??08/01/2023:?411.0 ??07/04/2023:?440.0 ??06/06/2023:?382.0 Vitamin?D?(Calcitriol)?Oral?(mcg) ??08/26/2023:?0.75 ??08/24/2023:?0.75 ??08/22/2023:?0.75 NUTRITION?ASSESSMENT Albumin,?Potassium ??08/01/2023:?4.2,?4.6 ??07/04/2023:?4.0,?5.0 ??06/06/2023:?4.1,?5.0 ?? eNPCR ??08/01/2023:?1.08 ??07/04/2023:?0.92 ??06/22/2023:?1.21 DIAGNOSIS Chief?Complaint:?N18.6?End?stage?renal?disease Patient?data?updated?08/29/2023?at?9:24?AM Signed?By:?Lesa,?Simi,?ASSEMBLY TECHNICIAN??on?08/29/2023?9:24:41?AM END OF DOCUMENT
--- OUTSIDE RECORDS SUMMARY | 2023-12-28 16:35 | XMS_ITS ---
Author Name Too Morgan Address [address] [place] [id number] Phone [phone] Organization [facility] e, NA DOCUMENT DISCLAIMER Multiple document versions may exist, please be sure you review the latest version. The information in the [facility] Emergency Department Progress Note Document represents a providers documented clinical note containing certain health and medical information. It may not contain the complete medical history for the patient and should be independently verified. The represented time in the document is Eastern Time PROVIDER ROUNDING NOTE BASIC Patient:?SINDI?FERNANDA,?1960,?62y,?M Dialysis?Location:?[facility] Attending?Curtain Inspector:?Too?Eddie Service?Date:?01/17/2023 Service?Provider:?Too?Eddie,? I?met?face?to?face?with?the?patient?today. OVERVIEW The?patient?presented?with?ESRD?on?dialysis Primary?cause?of?renal?failure:?Type?2?diabetes?mellitus&#16 0;with?diabetic?chronic?kidney?disease Comments:?01/17?Isidro?is?recovering?from?Covid.?He?had?si gnificant?muscle?aches?and?pains?but?seems?to?be?improv ing.?His?blood?pressure?is?now?high?again?and?I?se nt?in?a?prescription?for?amlodipine?5?mg?daily?but&#160 ;she?will?start?this?week. DIALYSIS?PRESCRIPTION ??IHD?3x?Week?Start?date:?11/10/22 ??Dialyzer:?180NRe?Optiflux ??BFR:?450 ??DFR:?Manual?500 ??Potassium:?2.0 ??Sodium:?137 ??EDW:?98 ??Duration:?4:00 ??Calcium:?2.5 ??Bicarb:?35 ??Rx?updated?on:?11/08/2022 TREATMENT?ASSESSMENT BP?Sit?Pre ??01/14/2023:?180/78 ??01/12/2023:?148/71 ??01/10/2023:?127/60 BP?Stand?Post ??01/10/2023:?136/67 BP?Sit?Post ??01/14/2023:?156/68 ??01/12/2023:?135/67 ??01/10/2023:?142/58 Tx?Duration ??01/14/2023:?3:43 ??01/12/2023:?4:01 ??01/10/2023:?4:11 Missed?Treatments 0?-?last?30?days 0?-?last?60?days FLUID?ASSESSMENT EDW?(kg) ??01/14/2023:?98.0 ??01/12/2023:?98.0 ??01/10/2023:?98.0 Weight?Pre?(kg) ??01/14/2023:?100.0 ??01/12/2023:?99.8 ??01/10/2023:?100.7 Weight?Post?(kg) ??01/14/2023:?97.8 ??01/12/2023:?97.8 ??01/10/2023:?97.8 PWV?(kg) ??01/14/2023:?-0.2 ??01/12/2023:?-0.2 ??01/10/2023:?-0.2 UF?Rate?(mL/kg/hr) ??01/14/2023:?6.1 ??01/12/2023:?5.1 ??01/10/2023:?7.1 ADEQUACY?ASSESSMENT spKt/V,?URR ??01/03/2023:?1.63,?75.0 ??12/06/2022:?1.44,?71.0 ??11/03/2022:?1.47,?72.0 ACCESS?ASSESSMENT ??Access?Type:?AVFistula ??Access?SubType:?Standard ??Access?Status:?Active?(In?Use)?-?09/14/2017 ??Access?Location:?Left?Forearm ??Created:?04/13/2017 Flow ??01/05/2023:?835 ??12/08/2022:?1039 ??09/02/2022:?903 ANEMIA?ASSESSMENT HGB,?TSAT ??01/10/2023:?10.2,?- ??01/03/2023:?10.3,?28.0 ??12/27/2022:?10.6,?- ?? Ferritin ??01/03/2023:?908.0 ??12/06/2022:?871.0 ??11/03/2022:?1068.0 Mircera,?IVP?(mcg) ??01/07/2023:?75 ??12/10/2022:?75 ??11/12/2022:?75 Iron?Sucrose?(Venofer)?(mg) ??01/14/2023:?50 ??01/07/2023:?50 ??12/31/2022:?50 BMM?ASSESSMENT Phosphorus,?Calcium ??01/10/2023:?-,?7.9 ??01/03/2023:?6.7,?8.3 ??12/27/2022:?-,?8.7 ?? PTH,?Intact ??01/03/2023:?572.0 ??12/06/2022:?565.0 ??11/03/2022:?413.0 Vitamin?D?(Calcitriol)?Oral?(mcg) ??01/14/2023:?0.75 ??01/12/2023:?0.75 ??01/10/2023:?0.75 NUTRITION?ASSESSMENT Albumin,?Potassium ??01/03/2023:?4.1,?5.0 ??12/06/2022:?4.1,?4.3 ??11/03/2022:?4.4,?4.8 ?? eNPCR ??01/03/2023:?0.94 ??12/06/2022:?1.05 ??11/03/2022:?0.98 Patient?data?updated?01/17/2023?at?9:32?AM Signed?By:?Eddie,?Too,???on?01/17/2023?9:32:56?AM END OF DOCUMENT
--- OUTSIDE RECORDS SUMMARY | 2023-12-28 16:35 | XMS_ITS ---
Author Name Stephanie Davisberly Address [address] [place] [address] Phone [phone] Organization [facility], NA DOCUMENT DISCLAIMER Multiple document versions may exist, please be sure you review the latest version. The information in the [facility] Progress Note Document represents a providers documented clinical note containing certain health and medical information. It may not contain the complete medical history for the patient and should be independently verified. The represented time in the document is Eastern Time PROVIDER ROUNDING NOTE BASIC Patient:?SINDI?FERNANDA,?1960,?63y,?M Dialysis?Location:?[facility] Attending?Social Sciences Professor:?Too?Eddie Service?Date:?11/21/2023 Service?Provider:?Nettei?Susan,?ADVERTISING SALES MANAGER I?met?face?to?face?with?the?patient?today. OVERVIEW The?patient?presented?with?ESRD?on?dialysis Primary?cause?of?renal?failure:?Type?2?diabetes?mellitus&#16 0;with?diabetic?chronic?kidney?disease Comments:?11/21/23-?Tolerated?tx?well.?Gained?extra?fluid?maureen ght?over?the?weekend,?pt?will?watch?fluid?intake?and&#1 60;will?try?to?pull?extra?fluid?as?tolerated?over?the&# 160;next?couple?of?treatments.?Denies?SOB?today.?No?issues&# 160;or?pt?complaints.? 11/13?lightheaded?at?home/?post?bp?120/40,?given?wide?pu lse?pressure,?will?increase?EDW?1?kg LAST?HOSPITALIZATION Discharge?Diagnosis:?R78.81?Bacteremia Admission?Date?08/15/22 Discharge?Date?08/18/22 DIALYSIS?PRESCRIPTION ??IHD?3x?Week?Start?date:?11/14/23 ??Dialyzer:?180NRe?Optiflux ??BFR:?450 ??DFR:?Manual?800 ??Potassium:?2.0 ??Sodium:?137 ??EDW:?100 ??Duration:?4:00 ??Calcium:?2.5 ??Bicarb:?35 ??Rx?updated?on:?11/14/2023 TREATMENT?ASSESSMENT BP?Stand?Pre ??11/18/2023:?122/53 ??11/16/2023:?128/62 ??11/14/2023:?165/73 BP?Sit?Pre ??11/18/2023:?147/66 ??11/16/2023:?138/67 ??11/14/2023:?138/70 BP?Stand?Post ??11/18/2023:?97/42 ??11/16/2023:?137/54 ??11/14/2023:?178/78 BP?Sit?Post ??11/18/2023:?133/58 ??11/16/2023:?133/78 ??11/14/2023:?166/68 Tx?Duration ??11/18/2023:?4:07 ??11/16/2023:?4:06 ??11/14/2023:?4:01 Missed?Treatments 0?-?last?30?days 0?-?last?60?days FLUID?ASSESSMENT EDW?(kg) ??11/18/2023:?100.0 ??11/16/2023:?100.0 ??11/14/2023:?98.5 Weight?Pre?(kg) ??11/18/2023:?103.7 ??11/16/2023:?102.6 ??11/14/2023:?102.3 Weight?Post?(kg) ??11/18/2023:?100.6 ??11/16/2023:?100.8 ??11/14/2023:?99.1 PWV?(kg) ??11/18/2023:?0.6 ??11/16/2023:?0.8 ??11/14/2023:?0.6 UF?Rate?(mL/kg/hr) ??11/18/2023:?7.5 ??11/16/2023:?4.4 ??11/14/2023:?8 ADEQUACY?ASSESSMENT spKt/V,?URR ??10/31/2023:?7.46,?97.0 ??10/03/2023:?1.88,?79.0 ??09/05/2023:?1.28,?64.0 ACCESS?ASSESSMENT ??Access?Type:?AVFistula ??Access?SubType:?Standard ??Access?Status:?Active?(In?Use)?-?09/14/2017 ??Access?Location:?Left?Forearm ??Created:?04/13/2017 Flow ??11/16/2023:?886 ??10/05/2023:?1427 ??09/07/2023:?1112 ANEMIA?ASSESSMENT HGB,?TSAT ??11/14/2023:?9.8,?- ??11/07/2023:?9.7,?- ??10/31/2023:?9.1,?37.0 ?? Ferritin ??10/31/2023:?1275.0 ??10/10/2023:?1162.0 ??09/05/2023:?732.0 Mircera,?IVP?(mcg) ??11/18/2023:?100 ??11/04/2023:?75 ??10/21/2023:?60 Iron?Sucrose?(Venofer)?(mg) ??11/04/2023:?50 ??10/28/2023:?50 ??10/21/2023:?50 BMM?ASSESSMENT PTH,?Intact ??10/31/2023:?449.0 ??10/03/2023:?459.0 ??09/05/2023:?512.0 ?? Calcium,?Phosphorus ??11/14/2023:?8.5,?- ??11/07/2023:?8.8,?- ??10/31/2023:?8.5,?7.3 Vitamin?D?(Calcitriol)?Oral?(mcg) ??11/18/2023:?0.75 ??11/16/2023:?0.75 ??11/14/2023:?0.75 NUTRITION?ASSESSMENT Potassium,?Albumin ??10/31/2023:?4.9,?4.3 ??10/10/2023:?5.8,?- ??10/03/2023:?-,?3.9 ?? eNPCR ??10/31/2023:?1.62 ??10/03/2023:?1.06 ??09/05/2023:?1.06 DIAGNOSIS Chief?Complaint:?N18.6?End?stage?renal?disease Patient?data?updated?11/21/2023?at?9:56?AM Signed?By:?Susan,?Nettie,?ADVERTISING SALES MANAGER??on?11/21/2023?9:58:23 AM END OF DOCUMENT
--- OUTSIDE RECORDS SUMMARY | 2023-12-28 16:35 | XMS_ITS ---
Author Name Simi Mcfadden Address [address] [place] [address] Phone [phone] Organization [facility] e, NA DOCUMENT DISCLAIMER Multiple document versions may exist, please be sure you review the latest version. The information in the [facility] Progress Note Document represents a providers documented clinical note containing certain health and medical information. It may not contain the complete medical history for the patient and should be independently verified. The represented time in the document is Eastern Time PROVIDER ROUNDING NOTE BASIC Patient:?SINDI?FERNANDA,?1960,?62y,?M Dialysis?Location:?[facility] Attending?Head Waiter:?Too?Eddie Service?Date:?01/10/2023 Service?Provider:?Simi?Lesa,?HARVEST WORKER FIELD CROP I?met?face?to?face?with?the?patient?today. OVERVIEW The?patient?presented?with?ESRD?on?dialysis Primary?cause?of?renal?failure:?Type?2?diabetes?mellitus&#16 0;with?diabetic?chronic?kidney?disease Comments:?12/31 Stable?treatment.?Denies?concerns. 12/20/22?-?Stable?dialysis?treatment.? 12/08/22?-?Stable?dialysis?treatment?with?no?complaints?or&#16 0;acute?issues.?Access?flow?improved. 12/01.?Needs?new?access?flow?to?decide?if?he?needs?another?fistulogram? Medications?and?labs?reviewed. LAST?HOSPITALIZATION Discharge?Diagnosis:?R78.81?Bacteremia Admission?Date?08/15/22 Discharge?Date?08/18/22 DIALYSIS?PRESCRIPTION ??IHD?3x?Week?Start?date:?11/10/22 ??Dialyzer:?180NRe?Optiflux ??BFR:?450 ??DFR:?Manual?500 ??Potassium:?2.0 ??Sodium:?137 ??EDW:?98 ??Duration:?4:00 ??Calcium:?2.5 ??Bicarb:?35 ??Rx?updated?on:?11/08/2022 TREATMENT?ASSESSMENT BP?Stand?Pre ??01/07/2023:?163/74 ??01/05/2023:?154/72 BP?Sit?Pre ??01/07/2023:?162/78 ??01/05/2023:?190/84 ??01/03/2023:?159/81 BP?Stand?Post ??01/07/2023:?125/56 ??01/05/2023:?143/55 ??01/03/2023:?156/67 BP?Sit?Post ??01/07/2023:?142/65 ??01/05/2023:?135/70 ??01/03/2023:?142/85 Tx?Duration ??01/07/2023:?3:47 ??01/05/2023:?4:00 ??01/03/2023:?4:15 Missed?Treatments 0?-?last?30?days 0?-?last?60?days FLUID?ASSESSMENT EDW?(kg) ??01/07/2023:?98.0 ??01/05/2023:?98.0 ??01/03/2023:?98.0 Weight?Pre?(kg) ??01/07/2023:?100.4 ??01/05/2023:?100.9 ??01/03/2023:?102.0 Weight?Post?(kg) ??01/07/2023:?97.9 ??01/05/2023:?98.5 ??01/03/2023:?98.4 PWV?(kg) ??01/07/2023:?-0.1 ??01/05/2023:?0.5 ??01/03/2023:?0.4 UF?Rate?(mL/kg/hr) ??01/07/2023:?6.7 ??01/05/2023:?6.1 ??01/03/2023:?8.6 ADEQUACY?ASSESSMENT spKt/V,?URR ??01/03/2023:?1.63,?75.0 ??12/06/2022:?1.44,?71.0 ??11/03/2022:?1.47,?72.0 ACCESS?ASSESSMENT ??Access?Type:?AVFistula ??Access?SubType:?Standard ??Access?Status:?Active?(In?Use)?-?09/14/2017 ??Access?Location:?Left?Forearm ??Created:?04/13/2017 Flow ??01/05/2023:?835 ??12/08/2022:?1039 ??09/02/2022:?903 ANEMIA?ASSESSMENT HGB,?TSAT ??01/03/2023:?10.3,?28.0 ??12/27/2022:?10.6,?- ??12/20/2022:?9.9,?- ?? Ferritin ??01/03/2023:?908.0 ??12/06/2022:?871.0 ??11/03/2022:?1068.0 Mircera,?IVP?(mcg) ??01/07/2023:?75 ??12/10/2022:?75 ??11/12/2022:?75 Iron?Sucrose?(Venofer)?(mg) ??01/07/2023:?50 ??12/31/2022:?50 ??12/24/2022:?50 BMM?ASSESSMENT Phosphorus,?Calcium ??01/03/2023:?6.7,?8.3 ??12/27/2022:?-,?8.7 ??12/20/2022:?-,?8.5 ?? PTH,?Intact ??01/03/2023:?572.0 ??12/06/2022:?565.0 ??11/03/2022:?413.0 Vitamin?D?(Calcitriol)?Oral?(mcg) ??01/07/2023:?0.75 ??01/05/2023:?0.75 ??01/03/2023:?0.75 NUTRITION?ASSESSMENT Albumin,?Potassium ??01/03/2023:?4.1,?5.0 ??12/06/2022:?4.1,?4.3 ??11/03/2022:?4.4,?4.8 ?? eNPCR ??01/03/2023:?0.94 ??12/06/2022:?1.05 ??11/03/2022:?0.98 DIAGNOSIS Chief?Complaint:?N18.6?End?stage?renal?disease Patient?data?updated?01/10/2023?at?9:09?AM Signed?By:?Lesa,?Simi,?HARVEST WORKER FIELD CROP??on?01/10/2023?9:09:33?AM END OF DOCUMENT
--- OUTSIDE RECORDS SUMMARY | 2023-12-28 16:35 | XMS_ITS ---
Author Name Cynthia Gerber Address [address] [place] [address] Phone [phone] Organization [facility] e, NA DOCUMENT DISCLAIMER Multiple document versions may exist, please be sure you review the latest version. The information in the [facility] Progress Note Document represents a providers documented clinical note containing certain health and medical information. It may not contain the complete medical history for the patient and should be independently verified. The represented time in the document is Eastern Time PROVIDER ROUNDING NOTE COMP Provider?Rounding?Note?Comp?-?SINDI?FERNANDA?-?Chart?#:?[id number] Patient?was?seen?on:?08/05/2022 Was?Patient?seen?today?:?08/05/2022 Method?of?Interaction:?Face?to?face Date?of?Interaction:?08/05/2022 Patient?is?stable ?-?Medications?and?labs?reviewed.? Prior?Treatment:?08/07/2022? Dialyzer:?180NRe?Optiflux? Dialysate:?2.0?K,?2.5 Ca,?1.0?Mg,?100?Dextrose?(G2251)? Actual?Time:?03:56?Prescribed?Time:?4:0? Avg?BFR:?450?Avg?DFR:?500? Wt?Gain?(kg):?2.10?EDW?(kg):?97.00? post?Wt?(kg):? 03/18/2022?-?EDW?decreased?to?100?based?on?recent?post- rx?weights.?04/27/2022?-?Euvolemic.??Achieving? target?weight.??No?change.?08/05/2022?-?Intermi ttent?high?gains.??Usually?achieves?target?weight.??&#1 60;?05/20/2022?-?Discussed?high?gains.??Will?decrease?E DW?to?98.5.?07/20/2022?-?Discussed?high?gains.& #160;?EDW?recently?increased?due?to?inability?to?reach?target. VITALS ?Date:?Temperature:?Pulse:?Respirations:?BP?(Sitting):?BP?(Standing):?Weight:? Volume?Management?Comments ADEQUACY ?spKt/V?eKdrt/V?OLC?(Del)?spKtv?1.65?08/03/22 ???1.46 ?08/03/22 ???1.75?08/07/22 ???1.63?07/06/22 ???1.47 ?07/06/22 ???1.66?08/05/22 ???1.71?06/08/22 ???1.53 ?06/08/22 ???1.68?08/03/22 ?URR?Potassium,?Serum?&#160 ;?Bicarbonate?Creatinine?%?mEq/L?mEq/L?&#16 0;?mg/dL ?75?08/03/22 ?? 6.0?08/03/22 ???24?08/03/22 ?74?07/06/22 ?? 4.3?07/06/22 ???23?07/06/22 ?76?06/08/22 ?? 4.5?06/08/22 ???24?06/08/22 ?-?Adequacy?parameters?reviewed? Adequacy ?-?Adequacy?target?met?Sitting?BP?Pre?Sitting BP?Post?Standing?BP?Post?149?/?77??08/07/22?130?/?84??08/07/22?129?/?65??08/07/22?135?/?68??08/05/22?119?/?76??08/05/22?122?/?64??07/31/22?104?/?87??08/03/22?123?/?86??08/03/22?105?/?71??07/29/22? Blood?Pressure ?-?Blood?pressure?controlled? Prescription?Compliance ?-?Prescription?compliance?acceptable? 04/27/2022?-?Will?have?patient?bring?meds?and?adjust?an tihypertensives?as?needed.?08/05/2022?-?Will?recheck;?typically?not?elevated. VASCULAR?ACCESS ?Type?Exit?Site?&#1 60;??Status?Access?ID?AVFistula-Standard?Forearm-Left?&#160 ;?Active?(In?Use)?005228? Access?Flows ??950mL?per?min?08/05/22 ??1348mL?per?min?07/01/22 ??1029mL?per?min?06/03/22 ??-?Vascular?access?reviewed? ??-?Current?access?is?functioning?well.? Most?Recent?In-center?Antibiotic?Order 11/29/2019?Vancomycin?HCl?1000?mg?IV?During?Dialysis?Once,&# 160;Clinic?4291-?Entered?By?HBMcalister ANEMIA ?HGB? Transferrin?Sat.?(Calc) ?Ferritin?g/dL?%?ng/m L?11.2?08/03/22? ??12?08/03/22?992?08/03/22? ??10.7?07/27/22? ??41?07/06/22?1062?07/06/22? ??10.6?07/20/22? ??54?06/08/22?1599?06/08/22? Erythropoietin-Stimulating?Agents?(MICHEL)?Administrations ??75?mcg?Mircera?07/24/22 ??50?mcg?Mircera?07/17/22 ??50?mcg?Mircera?07/03/22 IV?Iron?Administrations ??0?mg?Venofer?08/07/22 ??50?mg?Venofer?07/31/22 ??50?mg?Venofer?07/24/22 ?-?Anemia?reviewed? ?-?Anemia?targets?met? ?-?MICHEL?adjusted?per?protocol? BONE?AND?MINERAL?METABOLISM ?Calcium,?Total?Calcium,?Corrected?Phosphorous? &#160 ;?PTH-Intact,?Plasma?mg/dL?mg/dL?mg/dL?pg/mL?8.3?08/03/22? ??8.5?08/03/22? ??4.8?&#16 0;???08/03/22? ??538?08/03/22? ??8.7?07/27/22? ??8.7?07/06/22? ??5.7?&#16 0;???07/06/22? ??419?07/06/22? ??8.5?07/20/22? ??8.5?06/08/22? ??5.6?&#16 0;???06/08/22? ??356?06/08/22? Vitamin?D?25?Hydroxy ??17.4?08/03/22 ??15.9?05/11/22 ??15.3?05/12/21 Vitamin?D?Analogue?Administrations ??0.5?mcg?Vitamin?D?(?08/07/22 ??0.5?mcg?Vitamin?D?(?08/05/22 ??0.5?mcg?Vitamin?D?(?08/03/22 ?-?Bone?and?mineral?metabolism?parameters?reviewed? ?-?Calcium?controlled? ?-?Phosphorus?controlled? ?-?Vitamin?D?analogue?adjusted? PTH ?-?PTH?within?target? 05/20/2022?-?Forgets?binder.??Discussed?that,?as?well?a s?high-phos?foods.??Dietitian?will?give?additional?handouts. ?08/05/2022?-?Will?increase?calcitriol?to?0.75mcg?qrx. NUTRITION ?Albumin?eNPCR?g/dL?g/kg/day?3.8?08/03/22? ??1.06 ?08/03/22? ??4.0?07/06/22? ??0.95 ?07/06/22? ??3.5?06/08/22? ??0.87 ?06/08/22? ?-?Nutrition?reviewed? ?-?Referred?to?dietitian?for?further?counseling? HOME?MEDICATIONS ?Acetaminophen?Extra?Strength?(acetaminophen)??500?mg,?oral, ?2?tablet?every?six?hours ?aspirin?(aspirin)??325?mg,?oral,?1?tablet?once?a day ?atorvastatin?(atorvastatin)??40?mg,?oral,?1?tablet?once?a?day ?bumetanide?(bumetanide)??1?mg,?oral,?2?tablet?twice a?day ?gabapentin?(gabapentin)??300?mg,?oral,?1?capsule?three?times?a?day ?levetiracetam?(levetiracetam)??500?mg,?oral,?1?tablet? once?a?day??[TAKE?ONE?(1)?TABLET(S)?BY?MOUTH?EVERY?MORNING.] ?lidocaine-prilocaine?(lidocaine-prilocaine)??2.5-2.5%,?top,?1?a& #160;small?amount?as?directed??[apply?a?THIN?layer?to&# 160;dialysis?access?1-2?hr?prior?to?dialysis?and?wrap?with?Saran?wrap] ?losartan?(losartan)??50?mg,?oral,?1?tablet?once?a?day ?Novolog?U-100?Insulin?aspart?(insulin?aspart?u-100)??1 00?unit/mL,?subQ,?2?unit?as?directed??[Per?pump?6& #160;clicks?(12?units)?before?meals] ?Renvela?(sevelamer?carbonate)??800?mg,?oral,?1?tablet& #160;three?times?a?day??[one?with?snacks] ?sertraline?(sertraline)??50?mg,?oral,?1?tablet?once a?day EXAM ?-?Vital?signs?reviewed? Pulmonary ?-?LUNGS?-?clear? Cardiovascular ?-?CV?-?Blood?pressure?noted? ?-?CV?-?RRR? Edema ?-?EXT?-?1+?edema? TRANSPLANT?STATUS ?Person?Taught: ??-?Patient? ?Additional?Education?Required:?No ?Date?Given:?04/29/2022 INTEREST?AND?ELIGIBILITY?(If?changes?are?made,?Please?notify?SW?below) ?Date?of?discussion?from?transplant?assessment:?04/29/2022 ?Patient?already?on?transplant?list??No ?Patient?interested?in?transplantation??Not?interested?-?other ?If?undecided?or?not?interested?-?other,?why? ??Not?interested ?Has?patient's?physician?identified?one?or?more?exclusions per?the ?Contraindication?list?provider?by?the?transplant?center? 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 ?Transplant?center/state:?[facility]?[place]?[facility]?HOSP Alerts Has?transplant?appointment?January?,?2019 Cynthia?Buzz,? END OF DOCUMENT
--- OUTSIDE RECORDS SUMMARY | 2023-12-28 16:35 | XMS_ITS ---
Author Name Too Morgan Address [address] [place] [address] Phone [phone] Organization [facility] e, NA DOCUMENT DISCLAIMER Multiple document versions may exist, please be sure you review the latest version. The information in the [facility] Progress Note Document represents a providers documented clinical note containing certain health and medical information. It may not contain the complete medical history for the patient and should be independently verified. The represented time in the document is Eastern Time PROVIDER ROUNDING NOTE COMPREHENSIVE Patient:?SINDI?FERNANDA,?1960,?62y,?M Dialysis?Location:?[facility] Attending?English Language Arts Teacher:?Too?Eddie Service?Date:?10/18/2022 Service?Provider:?Too?Eddie,? I?met?face?to?face?with?the?patient?today. OVERVIEW The?patient?presented?with?ESRD?on?dialysis Primary?cause?of?renal?failure:?Type?2?diabetes?mellitus&#16 0;with?diabetic?chronic?kidney?disease Comments:?10/18?Has?had?some?high?IDWG?and?admits?he&#16 0;is?taking?more?fluid?out?of?boredom,?he?will?work on?it Medications?and?labs?reviewed. LAST?HOSPITALIZATION Discharge?Diagnosis:?R78.81?Bacteremia Admission?Date?08/15/22 Discharge?Date?08/18/22 DIALYSIS?PRESCRIPTION ??IHD?3x?Week?Start?date:?10/18/22 ??Dialyzer:?180NRe?Optiflux ??BFR:?450 ??DFR:?Manual?500 ??Potassium:?2.0 ??Sodium:?137 ??EDW:?97.5 ??Duration:?4:00 ??Calcium:?2.5 ??Bicarb:?35 ??Rx?updated?on:?10/15/2022 TREATMENT?ASSESSMENT Blood?pressure?elevated.?No?changes?indicated.? BP?Stand?Pre ??10/11/2022:?146/71 BP?Sit?Pre ??10/15/2022:?153/54 ??10/13/2022:?170/86 ??10/11/2022:?134/63 BP?Stand?Post ??10/15/2022:?124/57 ??10/13/2022:?185/85 ??10/11/2022:?105/41 BP?Sit?Post ??10/15/2022:?128/65 ??10/13/2022:?162/76 ??10/11/2022:?138/61 Tx?Duration ??10/15/2022:?3:29 ??10/13/2022:?3:50 ??10/11/2022:?4:07 Missed?Treatments 0?-?last?30?days 0?-?last?60?days FLUID?ASSESSMENT Fluid?status?not?acceptable.?Interdialytic?weight?gain?not?a cceptable.?Optimal?weight?discussed.? EDW?(kg) ??10/15/2022:?97.0 ??10/13/2022:?97.0 ??10/11/2022:?97.0 Weight?Pre?(kg) ??10/15/2022:?101.0 ??10/13/2022:?101.0 ??10/11/2022:?102.1 Weight?Post?(kg) ??10/15/2022:?97.7 ??10/13/2022:?98.1 ??10/11/2022:?97.9 PWV?(kg) ??10/15/2022:?0.7 ??10/13/2022:?1.1 ??10/11/2022:?0.9 UF?Rate?(mL/kg/hr) ??10/15/2022:?9.7 ??10/13/2022:?7.7 ??10/11/2022:?10.4 ADEQUACY?ASSESSMENT Adequacy?target?met.?Prescription?compliance?acceptable.?No?changes?indicated.? spKt/V,?URR ??10/04/2022:?1.62,?74.0 ??09/22/2022:?1.27,?67.0 ??08/31/2022:?1.57,?73.0 ACCESS?ASSESSMENT ??Access?Type:?AVFistula ??Access?SubType:?Standard ??Access?Status:?Active?(In?Use)?-?09/14/2017 ??Access?Location:?Left?Forearm ??Created:?04/13/2017 Flow ??09/02/2022:?903 ??08/05/2022:?950 ??07/01/2022:?1348 Vascular?access?reviewed.?Current?access?is?permanent?and?functioning?well. ANEMIA?ASSESSMENT HGB?at?goal.?Iron?parameters?acceptable.?MICHEL?dose?adequate. HGB,?TSAT ??10/11/2022:?10.2,?- ??10/04/2022:?11.4,?64.0 ??09/27/2022:?11.0,?- ?? Ferritin ??10/04/2022:?1211.0 ??09/22/2022:?1113.0 ??08/31/2022:?1180.0 Mircera,?IVP?(mcg) ??10/15/2022:?75 ??09/18/2022:?30 ??09/04/2022:?30 Iron?Sucrose?(Venofer)?(mg) ??10/01/2022:?50 ??09/24/2022:?50 ??09/14/2022:?50 BMM?ASSESSMENT PTH?controlled.?Calcium?controlled.?Phosphorus?elevated.?Counseled&#16 0;pt?on?meds?adherence.? Phosphorus,?Calcium ??10/11/2022:?-,?8.2 ??10/04/2022:?6.0,?8.5 ??09/27/2022:?-,?8.9 ?? PTH,?Intact ??10/04/2022:?524.0 ??09/22/2022:?528.0 ??08/31/2022:?360.0 Vitamin?D?(Calcitriol)?Oral?(mcg) ??10/15/2022:?0.50 ??10/13/2022:?0.50 ??10/11/2022:?0.50 NUTRITION?ASSESSMENT Potassium?controlled.?Albumin?controlled.?No?changes?indicated.? Albumin,?Potassium ??10/04/2022:?3.9,?4.2 ??09/22/2022:?4.2,?4.5 ??08/31/2022:?3.9,?4.5 ?? eNPCR ??10/04/2022:?0.94 ??08/31/2022:?0.9 ??08/03/2022:?1.06 PHYSICAL?EXAM Exam?Performed.?Vital?Signs?Reviewed.?Lungs?-?Clear. DIAGNOSIS Chief?Complaint:?N18.6?End?stage?renal?disease Patient?data?updated?10/18/2022?at?9:46?AM Signed?By:?Eddie,?Too???on?10/18/2022?9:49:24?AM END OF DOCUMENT
--- OUTSIDE RECORDS SUMMARY | 2023-12-28 16:35 | XMS_ITS ---
Author Name Too Morgan Address [address] [place] [id number] Phone [phone] Organization [facility] e, NA DOCUMENT DISCLAIMER Multiple document versions may exist, please be sure you review the latest version. The information in the [facility] Progress Note Document represents a providers documented clinical note containing certain health and medical information. It may not contain the complete medical history for the patient and should be independently verified. The represented time in the document is Eastern Time PROVIDER ROUNDING NOTE BASIC Patient:?SINDI?FERNANDA,?1960,?62y,?M Dialysis?Location:?[facility] Attending?[employer] Chief:?Too?Eddie Service?Date:?03/21/2023 Service?Provider:?Too?Eddie,? I?met?face?to?face?with?the?patient?today. OVERVIEW The?patient?presented?with?ESRD?on?dialysis Primary?cause?of?renal?failure:?Type?2?diabetes?mellitus&#16 0;with?diabetic?chronic?kidney?disease Comments:?03/21?Has?callus?ball?of?left?foot/advised?to&#160 ;get?referral?to?surgery?via?PCP?for?debridement.?If?no t?successful?will?refer?to?[facility] [place]?vascular?surgery.?Access ok DIALYSIS?PRESCRIPTION ??IHD?3x?Week?Start?date:?02/11/23 ??Dialyzer:?180NRe?Optiflux ??BFR:?450 ??DFR:?Manual?500 ??Potassium:?2.0 ??Sodium:?137 ??EDW:?98.5 ??Duration:?4:00 ??Calcium:?2.5 ??Bicarb:?35 ??Rx?updated?on:?02/09/2023 TREATMENT?ASSESSMENT BP?Stand?Pre ??03/18/2023:?118/56 ??03/16/2023:?154/58 ??03/14/2023:?158/80 BP?Sit?Pre ??03/18/2023:?149/76 ??03/16/2023:?152/78 ??03/14/2023:?168/87 BP?Stand?Post ??03/18/2023:?129/71 ??03/16/2023:?101/52 ??03/14/2023:?126/64 BP?Sit?Post ??03/18/2023:?121/68 ??03/16/2023:?137/71 ??03/14/2023:?154/77 Tx?Duration ??03/18/2023:?4:12 ??03/16/2023:?4:08 ??03/14/2023:?4:03 Missed?Treatments 0?-?last?30?days 0?-?last?60?days FLUID?ASSESSMENT EDW?(kg) ??03/18/2023:?98.5 ??03/16/2023:?98.5 ??03/14/2023:?98.5 Weight?Pre?(kg) ??03/18/2023:?101.1 ??03/16/2023:?101.4 ??03/14/2023:?102.8 Weight?Post?(kg) ??03/18/2023:?98.3 ??03/16/2023:?98.3 ??03/14/2023:?99.3 PWV?(kg) ??03/18/2023:?-0.2 ??03/16/2023:?-0.2 ??03/14/2023:?0.8 UF?Rate?(mL/kg/hr) ??03/18/2023:?6.8 ??03/16/2023:?7.6 ??03/14/2023:?8.7 ADEQUACY?ASSESSMENT spKt/V,?URR ??03/07/2023:?1.79,?78.0 ??01/31/2023:?1.71,?76.0 ??01/03/2023:?1.63,?75.0 ACCESS?ASSESSMENT ??Access?Type:?AVFistula ??Access?SubType:?Standard ??Access?Status:?Active?(In?Use)?-?09/14/2017 ??Access?Location:?Left?Forearm ??Created:?04/13/2017 Flow ??03/09/2023:?958 ??01/05/2023:?835 ??12/08/2022:?1039 ANEMIA?ASSESSMENT HGB,?TSAT ??03/14/2023:?11.8,?- ??03/07/2023:?11.5,?25.0 ??02/28/2023:?10.4,?- ?? Ferritin ??03/07/2023:?726.0 ??01/31/2023:?883.0 ??01/03/2023:?908.0 Mircera,?IVP?(mcg) ??02/25/2023:?75 ??02/11/2023:?75 ??01/07/2023:?75 Iron?Sucrose?(Venofer)?(mg) ??03/18/2023:?50 ??03/11/2023:?50 ??03/04/2023:?50 BMM?ASSESSMENT Phosphorus,?Calcium ??03/14/2023:?-,?8.3 ??03/07/2023:?7.8,?8.4 ??02/28/2023:?-,?8.2 ?? PTH,?Intact ??03/07/2023:?429.0 ??01/31/2023:?576.0 ??01/03/2023:?572.0 Vitamin?D?(Calcitriol)?Oral?(mcg) ??03/18/2023:?0.75 ??03/16/2023:?0.75 ??03/14/2023:?0.75 NUTRITION?ASSESSMENT Albumin,?Potassium ??03/07/2023:?4.2,?5.2 ??01/31/2023:?4.1,?5.0 ??01/03/2023:?4.1,?5.0 ?? eNPCR ??03/07/2023:?1.21 ??01/31/2023:?0.86 ??01/03/2023:?0.94 Patient?data?updated?03/21/2023?at?9:21?AM Signed?By:?Eddie,?Too,???on?03/21/2023?9:22:18?AM END OF DOCUMENT
--- OUTSIDE RECORDS SUMMARY | 2023-12-28 16:35 | XMS_ITS ---
Author Name Too Morgan Address [address] [place], [place] [id number] Phone [phone] Organization [facility] e, NA DOCUMENT DISCLAIMER Multiple document versions may exist, please be sure you review the latest version. The information in the [facility] Progress Note Document represents a providers documented clinical note containing certain health and medical information. It may not contain the complete medical history for the patient and should be independently verified. The represented time in the document is Eastern Time PROVIDER ROUNDING NOTE COMP Provider?Rounding?Note?Comp?-?SINDI?FERNANDA?-?Chart?#:?[id number] Method?of?Interaction:?Face?to?face Date?of?Interaction:?02/18/2023 Patient?is?stable ?-?Optimal?weight?addressed?with?patient?and?staff.? Prior?Treatment:?02/16/2023? Dialyzer:?180NRe?Optiflux? Dialysate:?2.0?K,?2.5 Ca,?1.0?Mg,?100?Dextrose?(G2251)? Actual?Time:?04:03?Prescribed?Time:?4:0? Avg?BFR:?450?Avg?DFR:?500? Wt?Gain?(kg):?2.20?EDW?(kg):?98.50? post?Wt?(kg):? Volume?Management?Comments 03/18/2022?-?EDW?decreased?to?100?based?on?recent?post- rx?weights.?04/27/2022?-?Euvolemic.??Achieving? target?weight.??No?change.?08/05/2022?-?Intermi ttent?high?gains.??Usually?achieves?target?weight.??&#1 60;?05/20/2022?-?Discussed?high?gains.??Will?decrease?E DW?to?98.5.?07/20/2022?-?Discussed?high?gains.& #160;?EDW?recently?increased?due?to?inability?to?reach?target. ADEQUACY ?spKt/V?eKdrt/V?OLC?(Del)?spKtv?1.71?01/31/23 ???1.51 ?01/31/23 ???1.55?02/16/23 ???1.63?01/03/23 ???1.44 ?01/03/23 ???1.47?02/14/23 ???1.44?12/06/22 ???1.26 ?12/06/22 ???1.56?02/11/23 ?URR?Potassium,?Serum?&#160 ;?Bicarbonate?Creatinine?%?mEq/L?mEq/L?&#16 0;?mg/dL ?76?01/31/23 ?? 5.0?01/31/23 ???24?01/31/23 ?75?01/03/23 ?? 5.0?01/03/23 ???22?01/03/23 ?71?12/06/22 ?? 4.3?12/06/22 ???27?12/06/22 ?-?Adequacy?parameters?reviewed? Adequacy ?-?Adequacy?target?met?Sitting?BP?Pre?Sitting BP?Post?162?/?76??02/16/23?167?/?90??02/16/23?132?/?60??02/14/23?163?/?72??02/14/23?133?/?57??02/11/23?132?/?64??02/11/23? ?? Blood?Pressure ?-?Elevated?blood?pressure-target?weight?adjusted? Fluid?Status ?-?Fluid?status?not?acceptable? Prescription?Compliance ?-?Prescription?compliance?acceptable? 04/27/2022?-?Will?have?patient?bring?meds?and?adjust?an tihypertensives?as?needed.?08/05/2022?-?Will?recheck;?typically?not?elevated. ANEMIA ?HGB? Transferrin?Sat.?(Calc) ?Ferritin?g/dL?%?ng/m L?10.4?02/14/23? ??31?01/31/23?883?01/31/23? ??10.0?02/07/23? ??28?01/03/23?908?01/03/23? ??9.8?01/31/23? ??35?12/06/22?871??&#160 ;?12/06/22? Erythropoietin-Stimulating?Agents?(MICHEL)?Administrations ??75?mcg?Mircera?02/11/23 ??75?mcg?Mircera?01/07/23 ??75?mcg?Mircera?12/10/22 IV?Iron?Administrations ??50?mg?Venofer?02/11/23 ??50?mg?Venofer?02/04/23 ??50?mg?Venofer?01/28/23 ?-?Anemia?reviewed? ?-?Anemia?targets?met? BONE?AND?MINERAL?METABOLISM ?Calcium,?Total?Calcium,?Corrected?Phosphorous? &#160 ;?PTH-Intact,?Plasma?mg/dL?mg/dL?mg/dL?pg/mL?8.4?02/14/23? ??8.2?01/31/23? ??5.8?&#16 0;???01/31/23? ??576?01/31/23? ??8.4?02/07/23? ??8.2?01/03/23? ??6.7?&#16 0;???01/03/23? ??572?01/03/23? ??8.3?01/31/23? ??8.2?12/06/22? ??6.2?&#16 0;???12/06/22? ??565?12/06/22? Vitamin?D?25?Hydroxy ??12.4?01/03/23 ??13.7?10/04/22 ??11.9?09/22/22 Vitamin?D?Analogue?Administrations ??0.75?mcg?Vitamin?D??02/16/23 ??0.75?mcg?Vitamin?D??02/14/23 ??0.75?mcg?Vitamin?D??02/11/23 ?-?Bone?and?mineral?metabolism?parameters?reviewed? ?-?Calcium?controlled? ?-?Counseled?regarding?dietary?compliance? ?-?Hyperphosphatemia?noted? PTH ?-?PTH?within?target? 05/20/2022?-?Forgets?binder.??Discussed?that,?as?well?a s?high-phos?foods.??Dietitian?will?give?additional?handouts. ?08/05/2022?-?Will?increase?calcitriol?to?0.75mcg?qrx. NUTRITION ?Albumin?eNPCR?g/dL?g/kg/day?4.1?01/31/23? ??0.86 ?01/31/23? ??4.1?01/03/23? ??0.94 ?01/03/23? ??4.1?12/06/22? ??1.05 ?12/06/22? ?-?Nutrition?reviewed? HOME?MEDICATIONS ?Acetaminophen?Extra?Strength?(acetaminophen)??500?mg,?oral, ?2?tablet?every?six?hours ?aspirin?(aspirin)??325?mg,?oral,?1/2?tablet?once?a?day ?atorvastatin?(atorvastatin)??40?mg,?oral,?1?tablet?once?a?day ?Basaglar?KwikPen?U-100?Insulin?(insulin?glargine)??100&#160 ;unit/mL?(3?mL),?subQ,??[takes?30?units] ?Breo?Ellipta?(fluticasone?furoate-vilanterol)??100-25?mcg/dose, inhl, ?bumetanide?(bumetanide)??2?mg,?oral,?2?tablet?once a?day ?gabapentin?(gabapentin)??300?mg,?oral,?1?capsule?three?times?a?day ?Norvasc?(amlodipine)??5?mg,?oral,?1?tablet?once?a?day ?Novolog?U-100?Insulin?aspart?(insulin?aspart?u-100)??1 00?unit/mL,?subQ,?2?unit?as?directed??[Per?pump?6& #160;clicks?(12?units)?before?meals] ?Renal?Caps?(b?complex?with?c?20-folic?acid)??1&#1 60;mg,?oral,?1?capsule?once?a?day ?Renvela?(sevelamer?carbonate)??800?mg,?oral,?3?tablet& #160;three?times?a?day??[one?with?snacks] ?sertraline?(sertraline)??50?mg,?oral,?1?tablet?once a?day ?tamsulosin?(tamsulosin)??0.4?mg,?oral,?1?capsule?every?night VASCULAR?ACCESS ?Type?Exit?Site?&#1 60;??Status?Access?ID?AVFistula-Standard?Forearm-Left?&#160 ;?Active?(In?Use)?[id number]? Access?Flows ??835mL?per?min?01/05/23 ??1039mL?per?min?12/08/22 ??903mL?per?min?09/02/22 ??-?Vascular?access?reviewed? Most?Recent?In-center?Antibiotic?Order 08/19/2022?Vancomycin?HCl?750?mg?IV?Every?Treatment?x?5 ?Times,?Clinic?4181-?Entered?By?[place]hel EXAM ?-?Vital?signs?reviewed? Pulmonary ?-?LUNGS?-?clear? TRANSPLANT?STATUS ?Person?Taught: ??-?Patient? ?Additional?Education?Required:?No ?Date?Given:?04/29/2022 INTEREST?AND?ELIGIBILITY?(If?changes?are?made,?Please?notify?SW?below) ?Date?of?discussion?from?transplant?assessment:?12/06/2022 ?Patient?already?on?transplant?list??No ?Patient?interested?in?transplantation??Not?interested?-?other ?If?undecided?or?not?interested?-?other,?why? ??Not?interested ?Has?patient's?physician?identified?one?or?more?exclusions per?the ?Contraindication?list?provider?by?the?transplant?center? 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 ?Transplant?center/state:?[facility]HOSP TOBACCO?CESSATION ??Tobacco?use:?Never?used Alerts Has?transplant?appointment?January?,?2020 Too?Eddie,? END OF DOCUMENT
--- OUTSIDE RECORDS SUMMARY | 2023-12-28 16:35 | XMS_ITS ---
Author Name Stephanie Davisberly Address [address] [place], [place] [id number] Phone [phone] Organization [facility] e, NA DOCUMENT DISCLAIMER Multiple document versions may exist, please be sure you review the latest version. The information in the [facility] Progress Note Document represents a providers documented clinical note containing certain health and medical information. It may not contain the complete medical history for the patient and should be independently verified. The represented time in the document is Eastern Time PROVIDER ROUNDING NOTE BASIC Patient:?SINDI?FERNANDA,?1960,?63y,?M Dialysis?Location:?[facility] Attending?Air Filler:?Too?Eddie Service?Date:?10/14/2023 Service?Provider:?Nettie?Susan,?PIT MANAGER I?met?face?to?face?with?the?patient?today. OVERVIEW The?patient?presented?with?ESRD?on?dialysis Primary?cause?of?renal?failure:?Type?2?diabetes?mellitus&#16 0;with?diabetic?chronic?kidney?disease Comments:?10/14/23-?stable?treatment.?No?patient?complaints.? 10/10/23-?stable?treatment,?complains?of?diarrhea?today,?took&#160 ;loperamide.?denies?chest?pain,?SOB,?NV,?bleeding?or?bruising.?AVF-?no?issues.? ?10/03/23?-?Feeling?well,?denies?N/V/D,?SOB.?Stable?treat ments.?AVF?functioning?well.?Reaching?EDW. 08/29/23?-?Stable?dialysis?treatment.?AVF?functioning?well.?Reaching?EDW. 4/26?overall?feeling?ok LAST?HOSPITALIZATION Discharge?Diagnosis:?R78.81?Bacteremia Admission?Date?08/15/22 Discharge?Date?08/18/22 DIALYSIS?PRESCRIPTION ??IHD?3x?Week?Start?date:?09/28/23 ??Dialyzer:?180NRe?Optiflux ??BFR:?450 ??DFR:?Manual?800 ??Potassium:?2.0 ??Sodium:?137 ??EDW:?98.5 ??Duration:?4:00 ??Calcium:?2.5 ??Bicarb:?35 ??Rx?updated?on:?09/27/2023 TREATMENT?ASSESSMENT BP?Stand?Pre ??10/14/2023:?142/61 ??10/12/2023:?143/76 ??10/10/2023:?165/71 BP?Sit?Pre ??10/14/2023:?127/72 ??10/12/2023:?126/66 ??10/10/2023:?135/81 BP?Stand?Post ??10/14/2023:?120/58 ??10/12/2023:?158/52 ??10/10/2023:?111/56 BP?Sit?Post ??10/14/2023:?104/54 ??10/12/2023:?145/76 ??10/10/2023:?122/46 Tx?Duration ??10/14/2023:?4:00 ??10/12/2023:?4:05 ??10/10/2023:?4:22 Missed?Treatments 1?-?last?30?days 2?-?last?60?days 5/20?-?recent FLUID?ASSESSMENT EDW?(kg) ??10/14/2023:?98.5 ??10/12/2023:?98.5 ??10/10/2023:?98.5 Weight?Pre?(kg) ??10/14/2023:?101.7 ??10/12/2023:?101.5 ??10/10/2023:?102.2 Weight?Post?(kg) ??10/14/2023:?98.5 ??10/12/2023:?98.7 ??10/10/2023:?98.2 PWV?(kg) ??10/14/2023:?0.0 ??10/12/2023:?0.2 ??10/10/2023:?-0.3 UF?Rate?(mL/kg/hr) ??10/14/2023:?8.1 ??10/12/2023:?6.9 ??10/10/2023:?9.3 ADEQUACY?ASSESSMENT spKt/V,?URR ??10/03/2023:?1.88,?79.0 ??09/05/2023:?1.28,?64.0 ??08/01/2023:?1.92,?80.0 ACCESS?ASSESSMENT ??Access?Type:?AVFistula ??Access?SubType:?Standard ??Access?Status:?Active?(In?Use)?-?09/14/2017 ??Access?Location:?Left?Forearm ??Created:?04/13/2017 Flow ??10/05/2023:?1427 ??09/07/2023:?1112 ??08/03/2023:?841 ANEMIA?ASSESSMENT HGB,?TSAT ??10/10/2023:?10.4,?48.0 ??10/03/2023:?10.3,?- ??09/26/2023:?11.4,?- ?? Ferritin ??10/10/2023:?1162.0 ??09/05/2023:?732.0 ??08/01/2023:?1221.0 Mircera,?IVP?(mcg) ??08/26/2023:?75 ??08/12/2023:?75 ??07/29/2023:?75 Iron?Sucrose?(Venofer)?(mg) ??10/07/2023:?50 ??09/28/2023:?100 ??09/26/2023:?100 BMM?ASSESSMENT PTH,?Intact ??10/03/2023:?459.0 ??09/05/2023:?512.0 ??08/01/2023:?411.0 ?? Calcium,?Phosphorus ??10/10/2023:?8.6,?5.2 ??09/26/2023:?7.9,?- ??09/21/2023:?8.3,?- Vitamin?D?(Calcitriol)?Oral?(mcg) ??10/12/2023:?0.75 ??10/10/2023:?0.75 ??10/07/2023:?0.75 NUTRITION?ASSESSMENT Potassium,?Albumin ??10/10/2023:?5.8,?- ??10/03/2023:?-,?3.9 ??09/26/2023:?5.1,?- ?? eNPCR ??10/03/2023:?1.06 ??09/05/2023:?1.06 ??08/01/2023:?1.08 DIAGNOSIS Chief?Complaint:?N18.6?End?stage?renal?disease Patient?data?updated?10/14/2023?at?12:17?PM Signed?By:?Susan,?Nettie,?PIT MANAGER??on?10/14/2023?12:17:49 PM END OF DOCUMENT
--- OUTSIDE RECORDS SUMMARY | 2023-12-28 16:35 | XMS_ITS ---
Author Name Simi Mcfadden Address [address] [place] [id number] Phone [phone] Organization [facility] e, NA DOCUMENT DISCLAIMER Multiple document versions may exist, please be sure you review the latest version. The information in the [facility] Progress Note Document represents a providers documented clinical note containing certain health and medical information. It may not contain the complete medical history for the patient and should be independently verified. The represented time in the document is Eastern Time PROVIDER ROUNDING NOTE BASIC Patient:?SINDI?FERNANDA,?1960,?62y,?M Dialysis?Location:?[place] Attending?Metrology Manager:?Cynthia?Buzz Service?Date:?09/09/2022 Service?Provider:?Simi?Lesa,?MORTGAGE LOAN REVIEWER I?met?face?to?face?with?the?patient?today. OVERVIEW The?patient?presented?with?ESRD?on?dialysis Primary?cause?of?renal?failure:?Type?2?diabetes?mellitus&#16 0;with?diabetic?chronic?kidney?disease Comments:?09/07/22?-?Stable?treatment?with?no?acute?issues or?complaints. 08/19/22?-?Return?to?clinic?after?hospitalization?for?pneumon ia.?Feeling?well?today,?no?sob,?no?edema.?Stable?treatment.? 08/03/22?-?High?IDWG?discussed?with?pt. 07/27/22?-?Reports?difficulty?managing?blood?sugar?lately,?vargas s?an?appt?with?diabetes?educator?and?PCP?tomorrow.? 06/15/22-Tolerating?HD?well?and?denies?any?new?complaints.? 06/10/22-?Tolerating?HD?well?and?denies?any?new?complaints. Metabolic?and?volume?parameters?reviewed.? Education?provided?on?reviewed?monthly?labs?and?UFG.?No changes?made 05/06/22-?Tolerating?treatment?well.?Denies?any?concerns. 04/20/22?-?Large?IDWG?today.??Discussed?in?detail?with patient.? 04/08/22?-?Increase?calcitriol?to?0.5mcg?for?low?Ca?and& #160;elevated?PTH.?Stable?treatment. 04/01/22?-?Stable?treatment,?no?complaints.??Feeling?well on?off?days. 03/16/22?-?Ending?treatment?below?EDW?with?stable?BP.?& #160;Will?adjust?EDW.??Stable?treatment?today?with?no?complaints. 03/09?Overall?stable/no?acute?issues 05/27/22 Doing?all?right?on?dialysis,?but?feels?dizzy?and?fatigu ed?after?HD,?currently?on?Losartan?and?Amlodipine,?he?w as?asked?to?keep?a?log?of?blood?pressure?and?bring ?it?next?week.?Phos?running?high. 06/01/ Blood?pressure?stable.?He?forgot?to?bring?the?blood?pressure?log.? Medications?and?labs?reviewed. LAST?HOSPITALIZATION Discharge?Diagnosis:?R78.81?Bacteremia Admission?Date?08/15/22 Discharge?Date?08/18/22 DIALYSIS?PRESCRIPTION ??IHD?3x?Week?Start?date:?07/22/22 ??Dialyzer:?180NRe?Optiflux ??BFR:?450 ??DFR:?Manual?500 ??Potassium:?2.0 ??Sodium:?137 ??EDW:?97 ??Duration:?4:00 ??Calcium:?2.5 ??Bicarb:?35 ??Rx?updated?on:?07/22/2022 TREATMENT?ASSESSMENT BP?Stand?Pre ??09/04/2022:?161/68 ??09/02/2022:?149/53 BP?Sit?Pre ??09/07/2022:?168/80 ??09/04/2022:?139/65 ??09/02/2022:?160/80 BP?Stand?Post ??09/07/2022:?127/91 ??09/04/2022:?116/56 ??09/02/2022:?100/66 BP?Sit?Post ??09/07/2022:?140/80 ??09/04/2022:?140/74 ??09/02/2022:?138/80 Tx?Duration ??09/07/2022:?3:48 ??09/04/2022:?3:46 ??09/02/2022:?3:53 Missed?Treatments 0?-?last?30?days 0?-?last?60?days FLUID?ASSESSMENT EDW?(kg) ??09/07/2022:?97.0 ??09/04/2022:?97.0 ??09/02/2022:?97.0 Weight?Pre?(kg) ??09/07/2022:?100.6 ??09/04/2022:?100.2 ??09/02/2022:?100.1 Weight?Post?(kg) ??09/07/2022:?97.2 ??09/04/2022:?97.3 ??09/02/2022:?97.3 PWV?(kg) ??09/07/2022:?0.2 ??09/04/2022:?0.3 ??09/02/2022:?0.3 UF?Rate?(mL/kg/hr) ??09/07/2022:?9.2 ??09/04/2022:?7.9 ??09/02/2022:?7.4 ADEQUACY?ASSESSMENT spKt/V,?URR ??08/31/2022:?1.57,?73.0 ??08/03/2022:?1.65,?75.0 ??07/06/2022:?1.63,?74.0 ACCESS?ASSESSMENT ??Access?Type:?AVFistula ??Access?SubType:?Standard ??Access?Status:?Active?(In?Use)?-?09/14/2017 ??Access?Location:?Left?Forearm ??Created:?04/13/2017 Flow ??09/02/2022:?903 ??08/05/2022:?950 ??07/01/2022:?1348 ANEMIA?ASSESSMENT HGB,?TSAT ??09/07/2022:?11.0,?- ??08/31/2022:?11.1,?32.0 ??08/24/2022:?11.2,?- ?? Ferritin ??08/31/2022:?1180.0 ??08/03/2022:?992.0 ??07/06/2022:?1062.0 Mircera,?IVP?(mcg) ??09/04/2022:?30 ??08/21/2022:?75 ??07/24/2022:?75 Iron?Sucrose?(Venofer)?(mg) ??08/12/2022:?100 ??08/10/2022:?100 ??07/31/2022:?50 BMM?ASSESSMENT Phosphorus,?Calcium ??09/07/2022:?-,?8.5 ??08/31/2022:?6.5,?8.3 ??08/24/2022:?-,?8.5 ?? PTH,?Intact ??08/31/2022:?360.0 ??08/03/2022:?538.0 ??07/06/2022:?419.0 Vitamin?D?(Calcitriol)?Oral?(mcg) ??09/07/2022:?0.50 ??09/04/2022:?0.50 ??09/02/2022:?0.50 NUTRITION?ASSESSMENT Albumin,?Potassium ??08/31/2022:?3.9,?4.5 ??08/03/2022:?3.8,?6.0 ??07/06/2022:?4.0,?4.3 ?? eNPCR ??08/31/2022:?0.9 ??08/03/2022:?1.06 ??07/06/2022:?0.95 DIAGNOSIS Chief?Complaint:?N18.6?End?stage?renal?disease Patient?data?updated?09/09/2022?at?8:49?AM Signed?By:?Lesa,?Simi,?MORTGAGE LOAN REVIEWER??on?09/09/2022?8:49:51?AM END OF DOCUMENT
--- OUTSIDE RECORDS SUMMARY | 2023-12-28 16:35 | XMS_ITS ---
Author Name Simi Mcfadden Address [address] [place] [id number] Phone [phone] Organization [facility] e, NA DOCUMENT DISCLAIMER Multiple document versions may exist, please be sure you review the latest version. The information in the [facility] Progress Note Document represents a providers documented clinical note containing certain health and medical information. It may not contain the complete medical history for the patient and should be independently verified. The represented time in the document is Eastern Time PROVIDER ROUNDING NOTE BASIC Patient:?SINDI?FERNANDA,?1960,?62y,?M Dialysis?Location:?[place] Attending?Life Insurance Agent:?Cynthia?Buzz Service?Date:?09/14/2022 Service?Provider:?Simi?Lesa,?BLOW TORCH OPERATOR I?met?face?to?face?with?the?patient?today. OVERVIEW The?patient?presented?with?ESRD?on?dialysis Primary?cause?of?renal?failure:?Type?2?diabetes?mellitus&#16 0;with?diabetic?chronic?kidney?disease Comments:?09/14/22?-?Stable?treatment.? 09/07/22?-?Stable?treatment?with?no?acute?issues?or?complaints. 08/19/22?-?Return?to?clinic?after?hospitalization?for?pneumon ia.?Feeling?well?today,?no?sob,?no?edema.?Stable?treatment.? 08/03/22?-?High?IDWG?discussed?with?pt. 07/27/22?-?Reports?difficulty?managing?blood?sugar?lately,?vargas s?an?appt?with?diabetes?educator?and?PCP?tomorrow.? 06/15/22-Tolerating?HD?well?and?denies?any?new?complaints.? 06/10/22-?Tolerating?HD?well?and?denies?any?new?complaints. Metabolic?and?volume?parameters?reviewed.? Education?provided?on?reviewed?monthly?labs?and?UFG.?No changes?made 05/06/22-?Tolerating?treatment?well.?Denies?any?concerns. 04/20/22?-?Large?IDWG?today.??Discussed?in?detail?with patient.? 04/08/22?-?Increase?calcitriol?to?0.5mcg?for?low?Ca?and& #160;elevated?PTH.?Stable?treatment. 04/01/22?-?Stable?treatment,?no?complaints.??Feeling?well on?off?days. 03/16/22?-?Ending?treatment?below?EDW?with?stable?BP.?& #160;Will?adjust?EDW.??Stable?treatment?today?with?no?complaints. 03/09?Overall?stable/no?acute?issues 05/27/22 Doing?all?right?on?dialysis,?but?feels?dizzy?and?fatigu ed?after?HD,?currently?on?Losartan?and?Amlodipine,?he?w as?asked?to?keep?a?log?of?blood?pressure?and?bring ?it?next?week.?Phos?running?high. 06/01/ Blood?pressure?stable.?He?forgot?to?bring?the?blood?pressure?log.? Medications?and?labs?reviewed. LAST?HOSPITALIZATION Discharge?Diagnosis:?R78.81?Bacteremia Admission?Date?08/15/22 Discharge?Date?08/18/22 DIALYSIS?PRESCRIPTION ??IHD?3x?Week?Start?date:?07/22/22 ??Dialyzer:?180NRe?Optiflux ??BFR:?450 ??DFR:?Manual?500 ??Potassium:?2.0 ??Sodium:?137 ??EDW:?97 ??Duration:?4:00 ??Calcium:?2.5 ??Bicarb:?35 ??Rx?updated?on:?07/22/2022 TREATMENT?ASSESSMENT BP?Stand?Pre ??09/09/2022:?152/69 BP?Sit?Pre ??09/11/2022:?160/84 ??09/09/2022:?150/76 ??09/07/2022:?168/80 BP?Stand?Post ??09/11/2022:?147/69 ??09/07/2022:?127/91 BP?Sit?Post ??09/11/2022:?148/85 ??09/09/2022:?137/62 ??09/07/2022:?140/80 Tx?Duration ??09/11/2022:?3:57 ??09/09/2022:?3:49 ??09/07/2022:?3:48 Missed?Treatments 0?-?last?30?days 0?-?last?60?days FLUID?ASSESSMENT EDW?(kg) ??09/11/2022:?97.0 ??09/09/2022:?97.0 ??09/07/2022:?97.0 Weight?Pre?(kg) ??09/11/2022:?100.3 ??09/09/2022:?99.5 ??09/07/2022:?100.6 Weight?Post?(kg) ??09/11/2022:?96.9 ??09/09/2022:?97.2 ??09/07/2022:?97.2 PWV?(kg) ??09/11/2022:?-0.1 ??09/09/2022:?0.2 ??09/07/2022:?0.2 UF?Rate?(mL/kg/hr) ??09/11/2022:?8.9 ??09/09/2022:?6.2 ??09/07/2022:?9.2 ADEQUACY?ASSESSMENT spKt/V,?URR ??08/31/2022:?1.57,?73.0 ??08/03/2022:?1.65,?75.0 ??07/06/2022:?1.63,?74.0 ACCESS?ASSESSMENT ??Access?Type:?AVFistula ??Access?SubType:?Standard ??Access?Status:?Active?(In?Use)?-?09/14/2017 ??Access?Location:?Left?Forearm ??Created:?04/13/2017 Flow ??09/02/2022:?903 ??08/05/2022:?950 ??07/01/2022:?1348 ANEMIA?ASSESSMENT HGB,?TSAT ??09/07/2022:?11.0,?- ??08/31/2022:?11.1,?32.0 ??08/24/2022:?11.2,?- ?? Ferritin ??08/31/2022:?1180.0 ??08/03/2022:?992.0 ??07/06/2022:?1062.0 Mircera,?IVP?(mcg) ??09/04/2022:?30 ??08/21/2022:?75 ??07/24/2022:?75 Iron?Sucrose?(Venofer)?(mg) ??08/12/2022:?100 ??08/10/2022:?100 ??07/31/2022:?50 BMM?ASSESSMENT Phosphorus,?Calcium ??09/07/2022:?-,?8.5 ??08/31/2022:?6.5,?8.3 ??08/24/2022:?-,?8.5 ?? PTH,?Intact ??08/31/2022:?360.0 ??08/03/2022:?538.0 ??07/06/2022:?419.0 Vitamin?D?(Calcitriol)?Oral?(mcg) ??09/11/2022:?0.50 ??09/09/2022:?0.50 ??09/07/2022:?0.50 NUTRITION?ASSESSMENT Albumin,?Potassium ??08/31/2022:?3.9,?4.5 ??08/03/2022:?3.8,?6.0 ??07/06/2022:?4.0,?4.3 ?? eNPCR ??08/31/2022:?0.9 ??08/03/2022:?1.06 ??07/06/2022:?0.95 DIAGNOSIS Chief?Complaint:?N18.6?End?stage?renal?disease Patient?data?updated?09/14/2022?at?1:01?PM Signed?By:?Lesa,?Simi,?BLOW TORCH OPERATOR??on?09/14/2022?1:01:21?PM END OF DOCUMENT
--- OUTSIDE RECORDS SUMMARY | 2023-12-28 16:35 | XMS_ITS ---
Author Name Simi Mcfadden Address [address] [place] [id number] Phone [phone] Organization [facility] e, NA DOCUMENT DISCLAIMER The information in the [facility] Provider Note Document represents a providersdocumented clinical note containing certain health and medical information. It may not contain the complete medical history for the patient and should be independently verified. The represented time in the document is Eastern Time PROVIDER ROUNDING NOTE BASIC Revised?By:?Simi?Lesa,?PAINT PROCESS ENGINEER Revised?Date:?04/16/2022?1:22:40?PM Revised?Reason:?edit Patient:?SINDI?FERNANDA,?1960,?62y,?M Dialysis?Location:?[facility] Attending?Grocery Clerk Stocking:?Cynthia?[employer] Service?Date:?04/16/2022 Service?Provider:?Simi?Lesa,?PAINT PROCESS ENGINEER I?met?face?to?face?with?the?patient?today. OVERVIEW The?patient?presented?with?ESRD?on?dialysis Primary?cause?of?renal?failure:?Type?2?diabetes?mellitus&#16 0;with?diabetic?chronic?kidney?disease Comments:?04/08/22?-?Increase?calcitriol?to?0.5mcg?for?low&#1 60;Ca?and?elevated?PTH.?Stable?treatment. [...] eNPCR ??04/06/2022:?0.97 ??03/16/2022:?0.88 ??02/09/2022:?1.0 DIAGNOSIS Chief?Complaint:?N18.6?End?stage?renal?disease Patient?data?updated?04/16/2022?at?1:22?PM Signed?By:?Lesa,?Simi,?PAINT PROCESS ENGINEER??on?04/16/2022?1:22:40?PM END OF DOCUMENT
--- OUTSIDE RECORDS SUMMARY | 2023-12-28 16:35 | XMS_ITS ---
Author Name Tucker Chalino Address [address] [place] [address] Phone [phone] Organization [facility] e, NA DOCUMENT DISCLAIMER The information in the [facility] Provider Note Document represents a providersdocumented clinical note containing certain health and medical information. It may not contain the complete medical history for the patient and should be independently verified. The represented time in the document is Eastern Time PROVIDER ROUNDING NOTE BASIC Patient:?SINDI?FERNANDA,?1960,?62y,?M Dialysis?Location:?[facility] Attending?Buckle Strap Puncher:?Cynthia?Buzz Service?Date:?05/27/2022 Service?Provider:?Chalino?Tucker,? I?saw?the?patient?remotely?today?for?a?telehealth?visit ?using?an?audiovisual?platform?during?the?COVID-19?PHE. OVERVIEW The?patient?presented?with?ESRD?on?dialysis Primary?cause?of?renal?failure:?Type?2?diabetes?mellitus&#16 0;with?diabetic?chronic?kidney?disease Comments:?05/06/22-?Tolerating?treatment?well.?Denies?any?concerns. 04/20/22?-?Large?IDWG?today.??Discussed?in?detail?with patient.? 04/08/22?-?Increase?calcitriol?to?0.5mcg?for?low?Ca?and& #160;elevated?PTH.?Stable?treatment. 04/01/22?-?Stable?treatment,?no?complaints.??Feeling?well on?off?days. 03/16/22?-?Ending?treatment?below?EDW?with?stable?BP.?& #160;Will?adjust?EDW.??Stable?treatment?today?with?no?complaints. 03/09?Overall?stable/no?acute?issues 05/27/22 Doing?all?right?on?dialysis,?but?feels?dizzy?and?fatigu ed?after?HD,?currently?on?Losartan?and?Amlodipine,?he?w as?asked?to?keep?a?log?of?blood?pressure?and?bring ?it?next?week.?Phos?running?high. DIALYSIS?PRESCRIPTION ??IHD?3x?Week?Start?date:?05/20/22 ??Dialyzer:?180NRe?Optiflux ??BFR:?450 ??DFR:?Manual?500 ??Potassium:?2.0 ??Sodium:?137 ??EDW:?98.5 ??Duration:?4:00 ??Calcium:?2.5 ??Bicarb:?35 ??Rx?updated?on:?05/20/2022 TREATMENT?ASSESSMENT BP?Stand?Pre ??05/25/2022:?130/58 ??05/22/2022:?154/66 ??05/20/2022:?124/88 BP?Sit?Pre ??05/25/2022:?160/77 ??05/22/2022:?154/71 ??05/20/2022:?142/53 BP?Stand?Post ??05/25/2022:?102/77 ??05/22/2022:?116/58 ??05/20/2022:?124/64 BP?Sit?Post ??05/25/2022:?110/59 ??05/22/2022:?133/73 ??05/20/2022:?101/68 Tx?Duration ??05/25/2022:?3:58 ??05/22/2022:?4:00 ??05/20/2022:?4:05 Missed?Treatments 0?-?last?30?days 0?-?last?60?days FLUID?ASSESSMENT EDW?(kg) ??05/25/2022:?98.5 ??05/22/2022:?98.5 ??05/20/2022:?99.0 Weight?Pre?(kg) ??05/25/2022:?102.1 ??05/22/2022:?102.1 ??05/20/2022:?102.1 Weight?Post?(kg) ??05/25/2022:?98.1 ??05/22/2022:?97.8 ??05/20/2022:?98.9 PWV?(kg) ??05/25/2022:?-0.4 ??05/22/2022:?-0.7 ??05/20/2022:?-0.1 UF?Rate?(mL/kg/hr) ??05/25/2022:?10.3 ??05/22/2022:?11 ??05/20/2022:?7.9 ADEQUACY?ASSESSMENT spKt/V,?URR ??05/11/2022:?1.73,?76.0 ??04/06/2022:?1.61,?74.0 ??03/16/2022:?1.54,?73.0 ACCESS?ASSESSMENT ??Access?Type:?AVFistula ??Access?SubType:?Standard ??Access?Status:?Active?(In?Use)?-?09/14/2017 ??Access?Location:?Left?Forearm ??Created:?04/13/2017 Flow ??05/08/2022:?1027 ??05/06/2022:?1293 ??04/08/2022:?936 ANEMIA?ASSESSMENT HGB,?TSAT ??05/25/2022:?11.0,?- ??05/18/2022:?11.2,?- ??05/11/2022:?11.8,?50.0 ?? Ferritin ??05/11/2022:?1124.0 ??04/06/2022:?823.0 ??03/16/2022:?880.0 Mircera,?IVP?(mcg) ??04/24/2022:?50 ??04/10/2022:?50 ??03/27/2022:?50 Iron?Sucrose?(Venofer)?(mg) ??05/01/2022:?50 ??04/24/2022:?50 ??04/17/2022:?50 BMM?ASSESSMENT Phosphorus,?Calcium ??05/25/2022:?-,?8.4 ??05/18/2022:?-,?8.7 ??05/11/2022:?6.7,?8.7 ?? PTH,?Intact ??05/11/2022:?344.0 ??04/06/2022:?447.0 ??03/16/2022:?365.0 Vitamin?D?(Calcitriol)?Oral?(mcg) ??05/25/2022:?0.50 ??05/22/2022:?0.50 ??05/20/2022:?0.50 NUTRITION?ASSESSMENT Albumin,?Potassium ??05/11/2022:?4.3,?5.3 ??04/06/2022:?4.1,?5.0 ??03/16/2022:?4.1,?5.0 ?? eNPCR ??05/11/2022:?1.15 ??04/06/2022:?0.97 ??03/16/2022:?0.88 DIAGNOSIS Chief?Complaint:?N18.6?End?stage?renal?disease Patient?data?updated?05/27/2022?at?1:44?PM Signed?By:?Tucker,?Chalino,???on?05/27/2022?1:48:52?PM END OF DOCUMENT
--- OUTSIDE RECORDS SUMMARY | 2023-12-28 16:35 | XMS_ITS ---
Author Name Simi Mcfadden Address [address] [place] [address] Phone [phone] Organization [facility] e, NA DOCUMENT DISCLAIMER Multiple document versions may exist, please be sure you review the latest version. The information in the [facility] Progress Note Document represents a providers documented clinical note containing certain health and medical information. It may not contain the complete medical history for the patient and should be independently verified. The represented time in the document is Eastern Time PROVIDER ROUNDING NOTE BASIC Patient:?SINDI?FERNANDA,?1960,?63y,?M Dialysis?Location:?[facility] Attending?Pipe Stress Engineer:?Too?Eddie Service?Date:?05/16/2023 Service?Provider:?Simi?Lesa,?RN ENDOCRINOLOGY I?met?face?to?face?with?the?patient?today. OVERVIEW The?patient?presented?with?ESRD?on?dialysis Primary?cause?of?renal?failure:?Type?2?diabetes?mellitus&#16 0;with?diabetic?chronic?kidney?disease Comments:?05/16/23?-?Had?diarrhea?over?the?weekend.?Denies&#1 60;fever,?vomiting.?No?acute?issues?today. 04/20?reviewed?bp?meds/?not?clear?if?he?got?the?10 ?mg?norvasc?yet/he?will?check?new?shipment?and?let&#160 ;us?know?the?next?treatment?rr Medications?and?labs?reviewed. LAST?HOSPITALIZATION Discharge?Diagnosis:?R78.81?Bacteremia Admission?Date?08/15/22 Discharge?Date?08/18/22 DIALYSIS?PRESCRIPTION ??IHD?3x?Week?Start?date:?04/04/23 ??Dialyzer:?180NRe?Optiflux ??BFR:?450 ??DFR:?Manual?500 ??Potassium:?2.0 ??Sodium:?137 ??EDW:?98.5 ??Duration:?4:00 ??Calcium:?2.5 ??Bicarb:?35 ??Rx?updated?on:?04/04/2023 TREATMENT?ASSESSMENT BP?Stand?Pre ??05/13/2023:?133/66 ??05/11/2023:?145/71 ??05/09/2023:?163/74 BP?Sit?Pre ??05/13/2023:?130/58 ??05/11/2023:?149/67 ??05/09/2023:?157/78 BP?Stand?Post ??05/13/2023:?103/55 ??05/11/2023:?121/57 ??05/09/2023:?134/61 BP?Sit?Post ??05/13/2023:?154/79 ??05/11/2023:?141/60 ??05/09/2023:?162/82 Tx?Duration ??05/13/2023:?4:04 ??05/11/2023:?4:01 ??05/09/2023:?4:03 Missed?Treatments 0?-?last?30?days 0?-?last?60?days FLUID?ASSESSMENT EDW?(kg) ??05/13/2023:?98.5 ??05/11/2023:?98.5 ??05/09/2023:?98.5 Weight?Pre?(kg) ??05/13/2023:?101.9 ??05/11/2023:?101.6 ??05/09/2023:?102.3 Weight?Post?(kg) ??05/13/2023:?98.7 ??05/11/2023:?98.9 ??05/09/2023:?99.1 PWV?(kg) ??05/13/2023:?0.2 ??05/11/2023:?0.4 ??05/09/2023:?0.6 UF?Rate?(mL/kg/hr) ??05/13/2023:?8 ??05/11/2023:?6.8 ??05/09/2023:?8 ADEQUACY?ASSESSMENT spKt/V,?URR ??05/04/2023:?1.79,?78.0 ??04/04/2023:?1.6,?74.0 ??03/07/2023:?1.79,?78.0 ACCESS?ASSESSMENT ??Access?Type:?AVFistula ??Access?SubType:?Standard ??Access?Status:?Active?(In?Use)?-?09/14/2017 ??Access?Location:?Left?Forearm ??Created:?04/13/2017 Flow ??05/09/2023:?949 ??04/06/2023:?973 ??03/09/2023:?958 ANEMIA?ASSESSMENT HGB,?TSAT ??05/09/2023:?11.4,?- ??05/04/2023:?11.8,?33.0 ??04/27/2023:?10.7,?- ?? Ferritin ??05/04/2023:?953.0 ??04/04/2023:?863.0 ??03/07/2023:?726.0 Mircera,?IVP?(mcg) ??05/06/2023:?75 ??04/22/2023:?75 ??04/08/2023:?75 Iron?Sucrose?(Venofer)?(mg) ??05/06/2023:?50 ??04/29/2023:?50 ??04/22/2023:?50 BMM?ASSESSMENT Phosphorus,?Calcium ??05/09/2023:?-,?8.5 ??05/04/2023:?6.3,?8.5 ??04/27/2023:?-,?8.3 ?? PTH,?Intact ??05/04/2023:?379.0 ??04/04/2023:?366.0 ??03/07/2023:?429.0 Vitamin?D?(Calcitriol)?Oral?(mcg) ??05/13/2023:?0.75 ??05/11/2023:?0.75 ??05/09/2023:?0.75 NUTRITION?ASSESSMENT Albumin,?Potassium ??05/04/2023:?4.3,?4.6 ??04/04/2023:?4.3,?5.0 ??03/07/2023:?4.2,?5.2 ?? eNPCR ??05/04/2023:?1.33 ??04/04/2023:?1.14 ??03/07/2023:?1.21 DIAGNOSIS Chief?Complaint:?N18.6?End?stage?renal?disease Patient?data?updated?05/16/2023?at?9:59?AM Signed?By:?Lesa,?Simi,?RN ENDOCRINOLOGY??on?05/16/2023?10:00:44 AM END OF DOCUMENT
--- OUTSIDE RECORDS SUMMARY | 2023-12-28 16:35 | XMS_ITS ---
Author Name Ming Seth [facility] Address [address] [place] [address] Phone [phone] Organization [facility] e, NA DOCUMENT DISCLAIMER Multiple document versions may exist, please be sure you review the latest version. The information in the [facility] Progress Note Document represents a providers documented clinical note containing certain health and medical information. It may not contain the complete medical history for the patient and should be independently verified. The represented time in the document is Eastern Time PROVIDER ROUNDING NOTE BASIC Patient:?SINDI?FERNANDA,?1960,?63y,?M Dialysis?Location:?[facility] Attending?Farmworker [employer]:?Too?Eddie Service?Date:?07/13/2023 Service?Provider:?Shira?Rolo,?AUDIO VISUAL TECH I?met?face?to?face?with?the?patient?today. OVERVIEW The?patient?presented?with?ESRD?on?dialysis Primary?cause?of?renal?failure:?Type?2?diabetes?mellitus&#16 0;with?diabetic?chronic?kidney?disease Comments:?06/20?stable?on?hd LAST?HOSPITALIZATION Discharge?Diagnosis:?R78.81?Bacteremia Admission?Date?08/15/22 Discharge?Date?08/18/22 DIALYSIS?PRESCRIPTION ??IHD?3x?Week?Start?date:?04/04/23 ??Dialyzer:?180NRe?Optiflux ??BFR:?450 ??DFR:?Manual?500 ??Potassium:?2.0 ??Sodium:?137 ??EDW:?98.5 ??Duration:?4:00 ??Calcium:?2.5 ??Bicarb:?35 ??Rx?updated?on:?04/04/2023 TREATMENT?ASSESSMENT BP?Stand?Pre ??07/11/2023:?141/58 ??07/08/2023:?121/62 ??07/06/2023:?133/59 BP?Sit?Pre ??07/11/2023:?125/65 ??07/08/2023:?140/66 ??07/06/2023:?131/59 BP?Stand?Post ??07/11/2023:?105/67 ??07/08/2023:?107/57 ??07/06/2023:?161/69 BP?Sit?Post ??07/11/2023:?140/75 ??07/08/2023:?115/66 ??07/06/2023:?162/82 Tx?Duration ??07/11/2023:?4:05 ??07/08/2023:?4:03 ??07/06/2023:?3:56 Missed?Treatments 0?-?last?30?days 1?-?last?60?days 2/2?-?recent FLUID?ASSESSMENT EDW?(kg) ??07/11/2023:?98.5 ??07/08/2023:?98.5 ??07/06/2023:?98.5 Weight?Pre?(kg) ??07/11/2023:?101.9 ??07/08/2023:?102.1 ??07/06/2023:?101.8 Weight?Post?(kg) ??07/11/2023:?98.5 ??07/08/2023:?98.4 ??07/06/2023:?99.6 PWV?(kg) ??07/11/2023:?0.0 ??07/08/2023:?-0.1 ??07/06/2023:?1.1 UF?Rate?(mL/kg/hr) ??07/11/2023:?8.5 ??07/08/2023:?9.3 ??07/06/2023:?5.6 ADEQUACY?ASSESSMENT spKt/V,?URR ??07/04/2023:?1.72,?77.0 ??06/22/2023:?1.72,?76.0 ??06/06/2023:?1.17,?62.0 ACCESS?ASSESSMENT ??Access?Type:?AVFistula ??Access?SubType:?Standard ??Access?Status:?Active?(In?Use)?-?09/14/2017 ??Access?Location:?Left?Forearm ??Created:?04/13/2017 Flow ??07/06/2023:?842 ??06/08/2023:?811 ??05/09/2023:?949 ANEMIA?ASSESSMENT HGB,?TSAT ??07/04/2023:?9.4,?73.0 ??06/27/2023:?10.0,?- ??06/13/2023:?10.2,?- ?? Ferritin ??07/04/2023:?1234.0 ??06/06/2023:?831.0 ??05/04/2023:?953.0 Mircera,?IVP?(mcg) ??05/06/2023:?75 ??04/22/2023:?75 Iron?Sucrose?(Venofer)?(mg) ??07/08/2023:?50 ??07/01/2023:?50 ??06/24/2023:?50 BMM?ASSESSMENT Phosphorus,?Calcium ??07/04/2023:?6.0,?8.7 ??06/27/2023:?-,?8.4 ??06/20/2023:?-,?9.0 ?? PTH,?Intact ??07/04/2023:?440.0 ??06/06/2023:?382.0 ??05/04/2023:?379.0 Vitamin?D?(Calcitriol)?Oral?(mcg) ??07/11/2023:?0.75 ??07/08/2023:?0.75 ??07/06/2023:?0.75 NUTRITION?ASSESSMENT Albumin,?Potassium ??07/04/2023:?4.0,?5.0 ??06/06/2023:?4.1,?5.0 ??05/04/2023:?4.3,?4.6 ?? eNPCR ??07/04/2023:?0.92 ??06/22/2023:?1.21 ??06/06/2023:?1.24 DIAGNOSIS Chief?Complaint:?N18.6?End?stage?renal?disease Patient?is?stable. Patient?data?updated?07/13/2023?at?9:33?AM Signed?By:?Michele-Sundar,?Shira,?AUDIO VISUAL TECH??on?07/13/2023?9:33:58?AM END OF DOCUMENT
--- OUTSIDE RECORDS SUMMARY | 2023-12-28 16:35 | XMS_ITS ---
Author Name Simi Mcfadden Address [address] [place] [address] Phone [phone] Organization [facility] e, NA DOCUMENT DISCLAIMER Multiple document versions may exist, please be sure you review the latest version. The information in the [facility] Progress Note Document represents a providers documented clinical note containing certain health and medical information. It may not contain the complete medical history for the patient and should be independently verified. The represented time in the document is Eastern Time PROVIDER ROUNDING NOTE BASIC Patient:?SINDI?FERNANDA,?1960,?62y,?M Dialysis?Location:?[facility] Attending?Healthcare Marketer:?Cynthia?Buzz Service?Date:?07/27/2022 Service?Provider:?Simi?Lesa,?SHEEP HERDER I?met?face?to?face?with?the?patient?today. OVERVIEW The?patient?presented?with?ESRD?on?dialysis Primary?cause?of?renal?failure:?Type?2?diabetes?mellitus&#16 0;with?diabetic?chronic?kidney?disease Comments:?07/27/22?-?Reports?difficulty?managing?blood?sugar? lately,?has?an?appt?with?diabetes?educator?and?PCP?tomorrow.? 06/15/22-Tolerating?HD?well?and?denies?any?new?complaints.? 06/10/22-?Tolerating?HD?well?and?denies?any?new?complaints. Metabolic?and?volume?parameters?reviewed.? Education?provided?on?reviewed?monthly?labs?and?UFG.?No changes?made 05/06/22-?Tolerating?treatment?well.?Denies?any?concerns. 04/20/22?-?Large?IDWG?today.??Discussed?in?detail?with patient.? 04/08/22?-?Increase?calcitriol?to?0.5mcg?for?low?Ca?and& #160;elevated?PTH.?Stable?treatment. 04/01/22?-?Stable?treatment,?no?complaints.??Feeling?well on?off?days. 03/16/22?-?Ending?treatment?below?EDW?with?stable?BP.?& #160;Will?adjust?EDW.??Stable?treatment?today?with?no?complaints. 03/09?Overall?stable/no?acute?issues 05/27/22 Doing?all?right?on?dialysis,?but?feels?dizzy?and?fatigu ed?after?HD,?currently?on?Losartan?and?Amlodipine,?he?w as?asked?to?keep?a?log?of?blood?pressure?and?bring ?it?next?week.?Phos?running?high. 06/01/ Blood?pressure?stable.?He?forgot?to?bring?the?blood?pressure?log.? Medications?and?labs?reviewed. DIALYSIS?PRESCRIPTION ??IHD?3x?Week?Start?date:?07/22/22 ??Dialyzer:?180NRe?Optiflux ??BFR:?450 ??DFR:?Manual?500 ??Potassium:?2.0 ??Sodium:?137 ??EDW:?97 ??Duration:?4:00 ??Calcium:?2.5 ??Bicarb:?35 ??Rx?updated?on:?07/22/2022 TREATMENT?ASSESSMENT BP?Stand?Pre ??07/24/2022:?127/98 ??07/22/2022:?159/103 ??07/20/2022:?152/74 BP?Sit?Pre ??07/24/2022:?113/46 ??07/22/2022:?158/64 ??07/20/2022:?128/76 BP?Stand?Post ??07/24/2022:?115/99 ??07/22/2022:?106/56 BP?Sit?Post ??07/24/2022:?101/76 ??07/22/2022:?112/77 ??07/20/2022:?110/74 Tx?Duration ??07/24/2022:?4:02 ??07/22/2022:?4:02 ??07/20/2022:?3:56 Missed?Treatments 0?-?last?30?days 0?-?last?60?days FLUID?ASSESSMENT EDW?(kg) ??07/24/2022:?97.0 ??07/22/2022:?96.0 ??07/20/2022:?96.0 Weight?Pre?(kg) ??07/24/2022:?99.7 ??07/22/2022:?99.9 ??07/20/2022:?100.5 Weight?Post?(kg) ??07/24/2022:?95.8 ??07/22/2022:?96.6 ??07/20/2022:?96.9 PWV?(kg) ??07/24/2022:?-1.2 ??07/22/2022:?0.6 ??07/20/2022:?0.9 UF?Rate?(mL/kg/hr) ??07/24/2022:?10.1 ??07/22/2022:?8.5 ??07/20/2022:?9.4 ADEQUACY?ASSESSMENT spKt/V,?URR ??07/06/2022:?1.63,?74.0 ??06/08/2022:?1.71,?76.0 ??05/11/2022:?1.73,?76.0 ACCESS?ASSESSMENT ??Access?Type:?AVFistula ??Access?SubType:?Standard ??Access?Status:?Active?(In?Use)?-?09/14/2017 ??Access?Location:?Left?Forearm ??Created:?04/13/2017 Flow ??07/01/2022:?1348 ??06/03/2022:?1029 ??05/08/2022:?1027 ANEMIA?ASSESSMENT HGB,?TSAT ??07/20/2022:?10.6,?- ??07/15/2022:?10.8,?- ??07/06/2022:?10.5,?41.0 ?? Ferritin ??07/06/2022:?1062.0 ??06/08/2022:?1599.0 ??05/11/2022:?1124.0 Mircera,?IVP?(mcg) ??07/24/2022:?75 ??07/17/2022:?50 ??07/03/2022:?50 Iron?Sucrose?(Venofer)?(mg) ??07/24/2022:?50 ??07/17/2022:?50 ??07/10/2022:?50 BMM?ASSESSMENT Phosphorus,?Calcium ??07/20/2022:?-,?8.5 ??07/15/2022:?-,?8.4 ??07/06/2022:?5.7,?8.7 ?? PTH,?Intact ??07/06/2022:?419.0 ??06/08/2022:?356.0 ??05/11/2022:?344.0 Vitamin?D?(Calcitriol)?Oral?(mcg) ??07/24/2022:?0.50 ??07/22/2022:?0.50 ??07/20/2022:?0.50 NUTRITION?ASSESSMENT Albumin,?Potassium ??07/06/2022:?4.0,?4.3 ??06/08/2022:?3.5,?4.5 ??05/11/2022:?4.3,?5.3 ?? eNPCR ??07/06/2022:?0.95 ??06/08/2022:?0.87 ??05/11/2022:?1.15 DIAGNOSIS Chief?Complaint:?N18.6?End?stage?renal?disease Patient?data?updated?07/27/2022?at?12:49?PM Signed?By:?Lesa,?Simi,?SHEEP HERDER??on?07/27/2022?12:50:25 PM END OF DOCUMENT
--- OUTSIDE RECORDS SUMMARY | 2023-12-28 16:35 | XMS_ITS ---
Author Name Too Morgan Address [address] [place] [id number] Phone [phone] Organization [facility] e, NA DOCUMENT DISCLAIMER Multiple document versions may exist, please be sure you review the latest version. The information in the [facility] Progress Note Document represents a providers documented clinical note containing certain health and medical information. It may not contain the complete medical history for the patient and should be independently verified. The represented time in the document is Eastern Time PROVIDER ROUNDING NOTE COMPREHENSIVE Patient:?SINDI?FERNANDA,?1960,?62y,?M Dialysis?Location:?[facility] Attending?Company Controller:?Too?Eddie Service?Date:?09/22/2022 Service?Provider:?Too?Eddie,? I?met?face?to?face?with?the?patient?today. OVERVIEW The?patient?presented?with?ESRD?on?dialysis Primary?cause?of?renal?failure:?Type?2?diabetes?mellitus&#16 0;with?diabetic?chronic?kidney?disease Comments:?09/14/22?-?Stable?treatment.? 09/07/22?-?Stable?treatment?with?no?acute?issues?or?complaints. 08/19/22?-?Return?to?clinic?after?hospitalization?for?pneumon ia.?Feeling?well?today,?no?sob,?no?edema.?Stable?treatment.? 08/03/22?-?High?IDWG?discussed?with?pt. 07/27/22?-?Reports?difficulty?managing?blood?sugar?lately,?vargas s?an?appt?with?diabetes?educator?and?PCP?tomorrow.? 06/15/22-Tolerating?HD?well?and?denies?any?new?complaints.? 06/10/22-?Tolerating?HD?well?and?denies?any?new?complaints. Metabolic?and?volume?parameters?reviewed.? Education?provided?on?reviewed?monthly?labs?and?UFG.?No changes?made 05/06/22-?Tolerating?treatment?well.?Denies?any?concerns. 04/20/22?-?Large?IDWG?today.??Discussed?in?detail?with patient.? 04/08/22?-?Increase?calcitriol?to?0.5mcg?for?low?Ca?and& #160;elevated?PTH.?Stable?treatment. 04/01/22?-?Stable?treatment,?no?complaints.??Feeling?well on?off?days. 03/16/22?-?Ending?treatment?below?EDW?with?stable?BP.?& #160;Will?adjust?EDW.??Stable?treatment?today?with?no?complaints. 03/09?Overall?stable/no?acute?issues 05/27/22 Doing?all?right?on?dialysis,?but?feels?dizzy?and?fatigu ed?after?HD,?currently?on?Losartan?and?Amlodipine,?he?w as?asked?to?keep?a?log?of?blood?pressure?and?bring ?it?next?week.?Phos?running?high. 06/01/ Blood?pressure?stable.?He?forgot?to?bring?the?blood?pressure?log.? Medications?and?labs?reviewed. LAST?HOSPITALIZATION Discharge?Diagnosis:?R78.81?Bacteremia Admission?Date?08/15/22 Discharge?Date?08/18/22 DIALYSIS?PRESCRIPTION ??IHD?3x?Week?Start?date:?09/22/22 ??Dialyzer:?180NRe?Optiflux ??BFR:?450 ??DFR:?Manual?500 ??Potassium:?2.0 ??Sodium:?137 ??EDW:?97 ??Duration:?4:00 ??Calcium:?2.5 ??Bicarb:?35 ??Rx?updated?on:?09/22/2022 TREATMENT?ASSESSMENT Blood?pressure?controlled.?No?changes?indicated.? BP?Stand?Pre ??09/16/2022:?123/61 BP?Sit?Pre ??09/21/2022:?145/76 ??09/18/2022:?151/82 ??09/16/2022:?132/76 BP?Stand?Post ??09/21/2022:?111/86 ??09/18/2022:?145/72 ??09/16/2022:?125/78 BP?Sit?Post ??09/21/2022:?143/88 ??09/18/2022:?122/72 ??09/16/2022:?131/69 Tx?Duration ??09/21/2022:?4:02 ??09/18/2022:?1:55 ??09/16/2022:?4:03 Missed?Treatments 0?-?last?30?days 0?-?last?60?days FLUID?ASSESSMENT Fluid?status?not?acceptable.?Interdialytic?weight?gain?not?a cceptable.?Optimal?weight?discussed.? EDW?(kg) ??09/21/2022:?97.0 ??09/18/2022:?97.0 ??09/16/2022:?97.0 Weight?Pre?(kg) ??09/21/2022:?102.9 ??09/18/2022:?100.0 ??09/16/2022:?101.0 Weight?Post?(kg) ??09/21/2022:?98.7 ??09/18/2022:?99.0 ??09/16/2022:?97.0 PWV?(kg) ??09/21/2022:?1.7 ??09/18/2022:?2.0 ??09/16/2022:?0.0 UF?Rate?(mL/kg/hr) ??09/21/2022:?10.6 ??09/18/2022:?5.3 ??09/16/2022:?10.2 ADEQUACY?ASSESSMENT Adequacy?target?met.?Prescription?compliance?acceptable.? spKt/V,?URR ??08/31/2022:?1.57,?73.0 ??08/03/2022:?1.65,?75.0 ??07/06/2022:?1.63,?74.0 ACCESS?ASSESSMENT ??Access?Type:?AVFistula ??Access?SubType:?Standard ??Access?Status:?Active?(In?Use)?-?09/14/2017 ??Access?Location:?Left?Forearm ??Created:?04/13/2017 Flow ??09/02/2022:?903 ??08/05/2022:?950 ??07/01/2022:?1348 Vascular?access?reviewed.?Current?access?is?permanent?and?functioning?well. ANEMIA?ASSESSMENT MICHEL?adjusted?per?protocol.?Anemia?reviewed.? HGB,?TSAT ??09/14/2022:?11.7,?- ??09/07/2022:?11.0,?- ??08/31/2022:?11.1,?32.0 ?? Ferritin ??08/31/2022:?1180.0 ??08/03/2022:?992.0 ??07/06/2022:?1062.0 Mircera,?IVP?(mcg) ??09/18/2022:?30 ??09/04/2022:?30 ??08/21/2022:?75 Iron?Sucrose?(Venofer)?(mg) ??09/14/2022:?50 ??08/12/2022:?100 ??08/10/2022:?100 BMM?ASSESSMENT PTH?within?target.?Bone?and?mineral?metabolism?parameters?reviewed.? Phosphorus,?Calcium ??09/14/2022:?4.9,?8.5 ??09/07/2022:?-,?8.5 ??08/31/2022:?6.5,?8.3 ?? PTH,?Intact ??08/31/2022:?360.0 ??08/03/2022:?538.0 ??07/06/2022:?419.0 Vitamin?D?(Calcitriol)?Oral?(mcg) ??09/21/2022:?0.50 ??09/18/2022:?0.50 ??09/16/2022:?0.50 NUTRITION?ASSESSMENT Nutrition?reviewed.?Potassium?controlled.? Albumin,?Potassium ??08/31/2022:?3.9,?4.5 ??08/03/2022:?3.8,?6.0 ??07/06/2022:?4.0,?4.3 ?? eNPCR ??08/31/2022:?0.9 ??08/03/2022:?1.06 ??07/06/2022:?0.95 PHYSICAL?EXAM Exam?Performed.?Vital?Signs?Reviewed.?Lungs?-?Clear. DIAGNOSIS Chief?Complaint:?N18.6?End?stage?renal?disease Patient?data?updated?09/22/2022?at?9:29?AM Signed?By:?Eddie,?Too???on?09/22/2022?9:31:16?AM END OF DOCUMENT
--- OUTSIDE RECORDS SUMMARY | 2023-12-28 16:35 | XMS_ITS ---
Author Name Simi Mcfadden Address [address] [place] [id number] Phone [phone] Organization [facility] e, NA DOCUMENT DISCLAIMER Multiple document versions may exist, please be sure you review the latest version. The information in the [facility] Progress Note Document represents a providers documented clinical note containing certain health and medical information. It may not contain the complete medical history for the patient and should be independently verified. The represented time in the document is Eastern Time PROVIDER ROUNDING NOTE BASIC Patient:?SINDI?FERNANDA,?1960,?63y,?M Dialysis?Location:?[facility] Attending?Rotary Dump Operator:?Too?Eddie Service?Date:?06/06/2023 Service?Provider:?Simi?Lesa,?RETENTION SPECIALIST I?met?face?to?face?with?the?patient?today. OVERVIEW The?patient?presented?with?ESRD?on?dialysis Primary?cause?of?renal?failure:?Type?2?diabetes?mellitus&#16 0;with?diabetic?chronic?kidney?disease Comments:?06/06/23?-?Missed?dialysis?on?Tuesday?due?to?GI& #160;bug.?Feeling?better?today.?High?IDWG?due?to?missed&#160 ;treatment.?Stable?treatment.? 05/18/23?patient's?diarrhea?has?resolved.?He?had?no?prior&#16 0;antibiotics.?He?can't?comment?on?whether?it?was?bloody&#16 0;or?not?because?of?his?visual?impairment.?It?seems?to& #160;be?resolving,?however.?If?it?occurs,?we?can?send?stool?samples. Medications?and?labs?reviewed. LAST?HOSPITALIZATION Discharge?Diagnosis:?R78.81?Bacteremia Admission?Date?08/15/22 Discharge?Date?08/18/22 DIALYSIS?PRESCRIPTION ??IHD?3x?Week?Start?date:?04/04/23 ??Dialyzer:?180NRe?Optiflux ??BFR:?450 ??DFR:?Manual?500 ??Potassium:?2.0 ??Sodium:?137 ??EDW:?98.5 ??Duration:?4:00 ??Calcium:?2.5 ??Bicarb:?35 ??Rx?updated?on:?04/04/2023 TREATMENT?ASSESSMENT BP?Stand?Pre ??06/01/2023:?119/81 ??05/30/2023:?135/84 ??05/27/2023:?158/72 BP?Sit?Pre ??06/01/2023:?146/68 ??05/30/2023:?190/78 ??05/27/2023:?177/97 BP?Stand?Post ??06/01/2023:?134/69 ??05/30/2023:?179/78 ??05/27/2023:?136/62 BP?Sit?Post ??06/01/2023:?133/79 ??05/30/2023:?176/101 ??05/27/2023:?151/76 Tx?Duration ??06/01/2023:?3:55 ??05/30/2023:?3:58 ??05/27/2023:?4:06 Missed?Treatments 1?-?last?30?days 1?-?last?60?days 2/2?-?recent FLUID?ASSESSMENT EDW?(kg) ??06/01/2023:?98.5 ??05/30/2023:?98.5 ??05/27/2023:?98.5 Weight?Pre?(kg) ??06/01/2023:?101.2 ??05/30/2023:?102.0 ??05/27/2023:?101.2 Weight?Post?(kg) ??06/01/2023:?98.8 ??05/30/2023:?98.8 ??05/27/2023:?98.2 PWV?(kg) ??06/01/2023:?0.3 ??05/30/2023:?0.3 ??05/27/2023:?-0.3 UF?Rate?(mL/kg/hr) ??06/01/2023:?6.2 ??05/30/2023:?8.2 ??05/27/2023:?7.5 ADEQUACY?ASSESSMENT spKt/V,?URR ??05/04/2023:?1.79,?78.0 ??04/04/2023:?1.6,?74.0 ??03/07/2023:?1.79,?78.0 ACCESS?ASSESSMENT ??Access?Type:?AVFistula ??Access?SubType:?Standard ??Access?Status:?Active?(In?Use)?-?09/14/2017 ??Access?Location:?Left?Forearm ??Created:?04/13/2017 Flow ??05/09/2023:?949 ??04/06/2023:?973 ??03/09/2023:?958 ANEMIA?ASSESSMENT HGB ??05/30/2023:?11.3 ??05/23/2023:?11.6 ??05/16/2023:?12.0 ?? Ferritin ??05/04/2023:?953.0 ??04/04/2023:?863.0 ??03/07/2023:?726.0 Mircera,?IVP?(mcg) ??05/06/2023:?75 ??04/22/2023:?75 ??04/08/2023:?75 Iron?Sucrose?(Venofer)?(mg) ??05/06/2023:?50 ??04/29/2023:?50 ??04/22/2023:?50 BMM?ASSESSMENT Calcium ??05/30/2023:?8.8 ??05/23/2023:?8.5 ??05/16/2023:?8.9 ?? PTH,?Intact ??05/04/2023:?379.0 ??04/04/2023:?366.0 ??03/07/2023:?429.0 Vitamin?D?(Calcitriol)?Oral?(mcg) ??06/01/2023:?0.75 ??05/30/2023:?0.75 ??05/27/2023:?0.75 NUTRITION?ASSESSMENT Albumin,?Potassium ??05/04/2023:?4.3,?4.6 ??04/04/2023:?4.3,?5.0 ??03/07/2023:?4.2,?5.2 ?? eNPCR ??05/04/2023:?1.33 ??04/04/2023:?1.14 ??03/07/2023:?1.21 DIAGNOSIS Chief?Complaint:?N18.6?End?stage?renal?disease Patient?data?updated?06/06/2023?at?9:59?AM Signed?By:?Lesa,?Simi,?RETENTION SPECIALIST??on?06/06/2023?9:59:50?AM END OF DOCUMENT
--- OUTSIDE RECORDS SUMMARY | 2023-12-28 16:35 | XMS_ITS ---
Author Name Simi Mcfadden Address [address] [place] [id number] Phone [phone] Organization [facility] e, NA DOCUMENT DISCLAIMER Multiple document versions may exist, please be sure you review the latest version. The information in the [facility] Progress Note Document represents a providers documented clinical note containing certain health and medical information. It may not contain the complete medical history for the patient and should be independently verified. The represented time in the document is Eastern Time PROVIDER ROUNDING NOTE BASIC Patient:?SINDI?FERNANDA,?1960,?62y,?M Dialysis?Location:?[facility] Attending?Back Hoe Operator:?Too?Eddie Service?Date:?10/06/2022 Service?Provider:?Simi?Lesa,?CHURN TENDER I?met?face?to?face?with?the?patient?today. OVERVIEW The?patient?presented?with?ESRD?on?dialysis Primary?cause?of?renal?failure:?Type?2?diabetes?mellitus&#16 0;with?diabetic?chronic?kidney?disease Comments:?10/06/22?-?Stable?treatment?with?no?complaints?or acute?issues.? 6/2?stable?treatment.?No?acute?issues Medications?and?labs?reviewed. LAST?HOSPITALIZATION Discharge?Diagnosis:?R78.81?Bacteremia Admission?Date?08/15/22 Discharge?Date?08/18/22 DIALYSIS?PRESCRIPTION ??IHD?3x?Week?Start?date:?09/22/22 ??Dialyzer:?180NRe?Optiflux ??BFR:?450 ??DFR:?Manual?500 ??Potassium:?2.0 ??Sodium:?137 ??EDW:?97 ??Duration:?4:00 ??Calcium:?2.5 ??Bicarb:?35 ??Rx?updated?on:?09/22/2022 TREATMENT?ASSESSMENT BP?Stand?Pre ??10/04/2022:?156/64 ??10/01/2022:?157/62 ??09/29/2022:?152/72 BP?Sit?Pre ??10/04/2022:?156/84 ??10/01/2022:?143/68 ??09/29/2022:?160/88 BP?Stand?Post ??10/04/2022:?123/36 ??10/01/2022:?138/56 ??09/29/2022:?114/54 BP?Sit?Post ??10/04/2022:?154/79 ??10/01/2022:?151/55 ??09/29/2022:?126/53 Tx?Duration ??10/04/2022:?4:03 ??10/01/2022:?3:58 ??09/29/2022:?4:04 Missed?Treatments 0?-?last?30?days 0?-?last?60?days FLUID?ASSESSMENT EDW?(kg) ??10/04/2022:?97.0 ??10/01/2022:?97.0 ??09/29/2022:?97.0 Weight?Pre?(kg) ??10/04/2022:?101.3 ??10/01/2022:?100.0 ??09/29/2022:?99.9 Weight?Post?(kg) ??10/04/2022:?97.8 ??10/01/2022:?96.3 ??09/29/2022:?96.9 PWV?(kg) ??10/04/2022:?0.8 ??10/01/2022:?-0.7 ??09/29/2022:?-0.1 UF?Rate?(mL/kg/hr) ??10/04/2022:?8.8 ??10/01/2022:?9.7 ??09/29/2022:?7.6 ADEQUACY?ASSESSMENT spKt/V,?URR ??09/22/2022:?1.27,?67.0 ??08/31/2022:?1.57,?73.0 ??08/03/2022:?1.65,?75.0 ACCESS?ASSESSMENT ??Access?Type:?AVFistula ??Access?SubType:?Standard ??Access?Status:?Active?(In?Use)?-?09/14/2017 ??Access?Location:?Left?Forearm ??Created:?04/13/2017 Flow ??09/02/2022:?903 ??08/05/2022:?950 ??07/01/2022:?1348 ANEMIA?ASSESSMENT HGB,?TSAT ??09/27/2022:?11.0,?- ??09/22/2022:?12.1,?49.0 ??09/21/2022:?11.1,?- ?? Ferritin ??09/22/2022:?1113.0 ??08/31/2022:?1180.0 ??08/03/2022:?992.0 Mircera,?IVP?(mcg) ??09/18/2022:?30 ??09/04/2022:?30 ??08/21/2022:?75 Iron?Sucrose?(Venofer)?(mg) ??10/01/2022:?50 ??09/24/2022:?50 ??09/14/2022:?50 BMM?ASSESSMENT Phosphorus,?Calcium ??09/27/2022:?-,?8.9 ??09/22/2022:?5.5,?- ??09/21/2022:?-,?8.4 ?? PTH,?Intact ??09/22/2022:?528.0 ??08/31/2022:?360.0 ??08/03/2022:?538.0 Vitamin?D?(Calcitriol)?Oral?(mcg) ??10/04/2022:?0.50 ??10/01/2022:?0.50 ??09/29/2022:?0.50 NUTRITION?ASSESSMENT Albumin,?Potassium ??09/22/2022:?4.2,?4.5 ??08/31/2022:?3.9,?4.5 ??08/03/2022:?3.8,?6.0 ?? eNPCR ??08/31/2022:?0.9 ??08/03/2022:?1.06 ??07/06/2022:?0.95 DIAGNOSIS Chief?Complaint:?N18.6?End?stage?renal?disease Patient?data?updated?10/06/2022?at?10:30?AM Signed?By:?Lesa,?Simi,?CHURN TENDER??on?10/06/2022?10:31:04 AM END OF DOCUMENT
--- OUTSIDE RECORDS SUMMARY | 2023-12-28 16:35 | XMS_ITS ---
Author Name Too Morgan Address [address] [place] [id number] Phone [phone] Organization [facility] e, NA DOCUMENT DISCLAIMER Multiple document versions may exist, please be sure you review the latest version. The information in the [facility] Progress Note Document represents a providers documented clinical note containing certain health and medical information. It may not contain the complete medical history for the patient and should be independently verified. The represented time in the document is Eastern Time PROVIDER ROUNDING NOTE BASIC Patient:?SINDI?FERNANDA,?1960,?62y,?M Dialysis?Location:?[facility] Attending?Certified Executive Chef:?Too?Eddie Service?Date:?10/01/2022 Service?Provider:?Too?Eddie,? I?met?face?to?face?with?the?patient?today. OVERVIEW The?patient?presented?with?ESRD?on?dialysis Primary?cause?of?renal?failure:?Type?2?diabetes?mellitus&#16 0;with?diabetic?chronic?kidney?disease Comments:?6/2?stable?treatment.?No?acute?issues DIALYSIS?PRESCRIPTION ??IHD?3x?Week?Start?date:?09/22/22 ??Dialyzer:?180NRe?Optiflux ??BFR:?450 ??DFR:?Manual?500 ??Potassium:?2.0 ??Sodium:?137 ??EDW:?97 ??Duration:?4:00 ??Calcium:?2.5 ??Bicarb:?35 ??Rx?updated?on:?09/22/2022 TREATMENT?ASSESSMENT BP?Stand?Pre ??09/29/2022:?152/72 ??09/27/2022:?164/70 BP?Sit?Pre ??09/29/2022:?160/88 ??09/27/2022:?158/80 ??09/24/2022:?187/80 BP?Stand?Post ??09/29/2022:?114/54 ??09/27/2022:?108/50 BP?Sit?Post ??09/29/2022:?126/53 ??09/27/2022:?166/56 ??09/24/2022:?109/52 Tx?Duration ??09/29/2022:?4:04 ??09/27/2022:?3:24 ??09/24/2022:?3:53 Missed?Treatments 0?-?last?30?days 0?-?last?60?days FLUID?ASSESSMENT EDW?(kg) ??09/29/2022:?97.0 ??09/27/2022:?97.0 ??09/24/2022:?97.0 Weight?Pre?(kg) ??09/29/2022:?99.9 ??09/27/2022:?100.9 ??09/24/2022:?100.9 Weight?Post?(kg) ??09/29/2022:?96.9 ??09/27/2022:?97.1 ??09/24/2022:?97.5 PWV?(kg) ??09/29/2022:?-0.1 ??09/27/2022:?0.1 ??09/24/2022:?0.5 UF?Rate?(mL/kg/hr) ??09/29/2022:?7.6 ??09/27/2022:?11.5 ??09/24/2022:?9 ADEQUACY?ASSESSMENT spKt/V,?URR ??09/22/2022:?1.27,?67.0 ??08/31/2022:?1.57,?73.0 ??08/03/2022:?1.65,?75.0 ACCESS?ASSESSMENT ??Access?Type:?AVFistula ??Access?SubType:?Standard ??Access?Status:?Active?(In?Use)?-?09/14/2017 ??Access?Location:?Left?Forearm ??Created:?04/13/2017 Flow ??09/02/2022:?903 ??08/05/2022:?950 ??07/01/2022:?1348 ANEMIA?ASSESSMENT HGB,?TSAT ??09/27/2022:?11.0,?- ??09/22/2022:?12.1,?49.0 ??09/21/2022:?11.1,?- ?? Ferritin ??09/22/2022:?1113.0 ??08/31/2022:?1180.0 ??08/03/2022:?992.0 Mircera,?IVP?(mcg) ??09/18/2022:?30 ??09/04/2022:?30 ??08/21/2022:?75 Iron?Sucrose?(Venofer)?(mg) ??09/24/2022:?50 ??09/14/2022:?50 ??08/12/2022:?100 BMM?ASSESSMENT Phosphorus,?Calcium ??09/27/2022:?-,?8.9 ??09/22/2022:?5.5,?- ??09/21/2022:?-,?8.4 ?? PTH,?Intact ??09/22/2022:?528.0 ??08/31/2022:?360.0 ??08/03/2022:?538.0 Vitamin?D?(Calcitriol)?Oral?(mcg) ??09/29/2022:?0.50 ??09/27/2022:?0.50 ??09/24/2022:?0.50 NUTRITION?ASSESSMENT Albumin,?Potassium ??09/22/2022:?4.2,?4.5 ??08/31/2022:?3.9,?4.5 ??08/03/2022:?3.8,?6.0 ?? eNPCR ??08/31/2022:?0.9 ??08/03/2022:?1.06 ??07/06/2022:?0.95 Patient?data?updated?10/01/2022?at?9:03?AM Signed?By:?Eddie,?Too,???on?10/01/2022?9:03:31?AM END OF DOCUMENT
--- OUTSIDE RECORDS SUMMARY | 2023-12-28 16:35 | XMS_ITS ---
Author Name Too Morgan Address [address] [place] [id number] Phone [phone] Organization [facility] e, NA DOCUMENT DISCLAIMER Multiple document versions may exist, please be sure you review the latest version. The information in the [facility] Progress Note Document represents a providers documented clinical note containing certain health and medical information. It may not contain the complete medical history for the patient and should be independently verified. The represented time in the document is Eastern Time PROVIDER ROUNDING NOTE BASIC Patient:?SINDI?FERNANDA,?1960,?63y,?M Dialysis?Location:?[facility] Attending?Membership Correspondent:?Too?Eddie Service?Date:?11/14/2023 Service?Provider:?Too?Eddie,? I?met?face?to?face?with?the?patient?today. OVERVIEW The?patient?presented?with?ESRD?on?dialysis Primary?cause?of?renal?failure:?Type?2?diabetes?mellitus&#16 0;with?diabetic?chronic?kidney?disease Comments:?11/13?lightheaded?at?home/?post?bp?120/40,?given&#1 60;wide?pulse?pressure,?will?increase?EDW?1?kg DIALYSIS?PRESCRIPTION ??IHD?3x?Week?Start?date:?09/28/23 ??Dialyzer:?180NRe?Optiflux ??BFR:?450 ??DFR:?Manual?800 ??Potassium:?2.0 ??Sodium:?137 ??EDW:?98.5 ??Duration:?4:00 ??Calcium:?2.5 ??Bicarb:?35 ??Rx?updated?on:?09/27/2023 TREATMENT?ASSESSMENT BP?Stand?Pre ??11/11/2023:?129/58 ??11/09/2023:?170/90 ??11/07/2023:?149/71 BP?Sit?Pre ??11/11/2023:?159/58 ??11/09/2023:?120/56 ??11/07/2023:?147/73 BP?Stand?Post ??11/11/2023:?130/64 ??11/09/2023:?117/61 ??11/07/2023:?120/59 BP?Sit?Post ??11/11/2023:?153/75 ??11/09/2023:?129/80 ??11/07/2023:?120/70 Tx?Duration ??11/11/2023:?4:00 ??11/09/2023:?4:07 ??11/07/2023:?3:13 Missed?Treatments 0?-?last?30?days 1?-?last?60?days 09/18?-?recent FLUID?ASSESSMENT EDW?(kg) ??11/11/2023:?98.5 ??11/09/2023:?98.5 ??11/07/2023:?98.5 Weight?Pre?(kg) ??11/11/2023:?101.1 ??11/09/2023:?101.7 ??11/07/2023:?103.0 Weight?Post?(kg) ??11/11/2023:?98.2 ??11/09/2023:?98.5 ??11/07/2023:?99.4 PWV?(kg) ??11/11/2023:?-0.3 ??11/09/2023:?0.0 ??11/07/2023:?0.9 UF?Rate?(mL/kg/hr) ??11/11/2023:?7.4 ??11/09/2023:?7.9 ??11/07/2023:?11.3 ADEQUACY?ASSESSMENT spKt/V,?URR ??10/31/2023:?7.46,?97.0 ??10/03/2023:?1.88,?79.0 ??09/05/2023:?1.28,?64.0 ACCESS?ASSESSMENT ??Access?Type:?AVFistula ??Access?SubType:?Standard ??Access?Status:?Active?(In?Use)?-?09/14/2017 ??Access?Location:?Left?Forearm ??Created:?04/13/2017 Flow ??10/05/2023:?1427 ??09/07/2023:?1112 ??08/03/2023:?841 ANEMIA?ASSESSMENT HGB,?TSAT ??11/07/2023:?9.7,?- ??10/31/2023:?9.1,?37.0 ??10/24/2023:?9.2,?- ?? Ferritin ??10/31/2023:?1275.0 ??10/10/2023:?1162.0 ??09/05/2023:?732.0 Mircera,?IVP?(mcg) ??11/04/2023:?75 ??10/21/2023:?60 ??08/26/2023:?75 Iron?Sucrose?(Venofer)?(mg) ??11/04/2023:?50 ??10/28/2023:?50 ??10/21/2023:?50 BMM?ASSESSMENT PTH,?Intact ??10/31/2023:?449.0 ??10/03/2023:?459.0 ??09/05/2023:?512.0 ?? Calcium,?Phosphorus ??11/07/2023:?8.8,?- ??10/31/2023:?8.5,?7.3 ??10/24/2023:?8.5,?- Vitamin?D?(Calcitriol)?Oral?(mcg) ??11/11/2023:?0.75 ??11/09/2023:?0.75 ??11/07/2023:?0.75 NUTRITION?ASSESSMENT Potassium,?Albumin ??10/31/2023:?4.9,?4.3 ??10/10/2023:?5.8,?- ??10/03/2023:?-,?3.9 ?? eNPCR ??10/31/2023:?1.62 ??10/03/2023:?1.06 ??09/05/2023:?1.06 Patient?data?updated?11/14/2023?at?10:10?AM Signed?By:?Eddie,?Too,???on?11/14/2023?10:12:03 AM END OF DOCUMENT
--- OUTSIDE RECORDS SUMMARY | 2023-12-28 16:36 | XMS_ITS | Encounter Summary ---
Author Organization [facility] [place] [address] Care Team Providers Care Equipment Sterilizer Name Role Phone Kimani Leger MD Primary Care Provider [phone] Encounter Details Date Type Department Care Team (Late st Contact Info) Description 12/23/2021 Notes [place] [address] Kameron Rodriguez PA [facility] [place] [address] Social History Tobacco Use Types Packs/Day Years Used Date Smoking Tobacco: Former Smokeless Tobacco: Never Comments:quit in his 20's Alcohol Use Standard Drinks/Week Comments No 0 (1 standard drink = 0.6 oz pur e alcohol) Sex and Gender Information Value Date Recorded Sex Assigned at Not on file Gender Identity Not on file Sexual Orientation Not on file documented as of this encounter H&P Notes * Kameron Rodriguez PA - 12/23/2021 12:04 PM EDT Interventional Radiology Focused Pre-procedure H&P: PCP: Kimani Leger MD Procedure indication: ESRD, malfunctioning hemodialysis access IR workflow: Procedure request received through the Interventional Radiology eDH order queue. History of present illness: Per chart review, Maurice Rudolph is a 61 y.o. male who presents to Interventional Radiology to undergo left upper extremity fistulagram. ?? Patient undergoes dialysis via left upper extremity AV radiocephalic fistula. Now reportedly experiencing decreased flows. ?? Seen twice previously with similar presentation, most recently 11/04/20: 1. Left forearm radiocephalic AV fistula. ?? 2. Severe focal stenosis of cephalic vein 2.5cm central to AV anastomosis, resolved with 7 mm CITY WELLNESS COORDINATOR. ?? 3. Coil from prior intervention at outside hospital in the forearm, unchanged from 06/17/20. ?? 4. AV anastomosis not stenotic. ?? 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 Remainder of patient's medical and surgical history, allergies, medications, and social/family history obtained below as previously outlined in patient's medical record. To be coordinated with anesthesia secondary to difficult airway. IR history: as above Assessment: 61 y.o. male with recurrent hemodialysis inadequacy concerning for recurrent stenosis presenting to Interventional Radiology for fistulagram. Plan Planned procedure: Left upper extremity fistulagram Labs to be performed day of procedure: No labs Sedation: Anesthesia Prophylactic antibiotic : None Contrast: Omnipaque Additional medications for procedure: Lidocaine Position: Supine Consent: Pending Medications to discontinue (and days held): None Cytopathology presence needed: No Case Urgency:: G- Other (non E or F elective cases) Labs: Lab Results Component Value Date HGB 12.9 (L) 06/17/2020 HCT 37.3 (L) 06/17/2020 WBC 7.0 06/17/2020 PLATELET 142 (L) 06/17/2020 INR 1.0 02/06/2020 BUN 15 06/17/2020 CREATININE 2.44 (H) 06/17/2020 ALBUMIN 3.7 08/03/2019 BILIDIR Not Perf 10/19/2018 BILITOT 0.5 08/03/2019 AST 21 08/03/2019 ALT 20 08/03/2019 ALKPHOS 96 08/03/2019 Allergies: Mirtazapine Medications: Current Outpatient Medications on File Prior to Visit Medication Sig Dispense Refill ??? Trulicity 0.75 mg/0.5 mL Pen Injector ??? amLODIPine (Norvasc) 5 mg Tablet Take 2 tablets by mouth daily. (Patient not taking: Reported on 06/08/2021) 180 tablet 3 ??? OneTouch Verio Flex meter Misc TEST BLOOD GLUCOSE THREE TIMES A DAY ??? NovoLOG Flexpen U-100 Insulin Insulin Pen Inject 6 Units subcutaneously 3 times daily (with meals). ICD 10 Code: E11.65 (Patient taking differently: Inject 12-16 Units subcutaneously 3 times daily (with meals). ICD 10 Code: E11.65) 15 mL 5 ??? Basaglar KwikPen U-100 Insulin 100 unit/mL (3 mL) pen Inject 20 Units subcutaneously daily. ICD10 Code: E11.65 15 mL 5 ??? insulin needles, disposable, 31 gauge x 3/16 Needle Inject 1 each subcutaneously 4 times daily. ICD 10 Code: E11.65 150 each 5 ??? epoetin babs-epbx (Retacrit) 10,000 unit/mL Solution Inject 1 mL subcutaneously once as needed in Dialysis. 1 mL ??? melatonin 3 mg Tablet Take 2 tablets by mouth nightly. ??? sevelamer carbonate (Renvela) 800 mg Tablet Take 1 tablet by mouth 3 times daily (with meals). ??? aspirin 325 mg Tablet Take 1 tablet by mouth daily. 90 tablet 3 ??? blood sugar diagnostic strips Strip Use to check blood sugar 3 times daily 200 each 11 ??? losartan (COZAAR) 50 mg Tablet Take 50 mg by mouth daily. ??? loratadine (CLARITIN) 10 mg Tablet Take 10 mg by mouth daily as needed for Allergies. ??? bumetanide (BUMEX) 1 mg Tablet Take 2 mg by mouth 2 times daily. ??? tamsulosin (FLOMAX) 0.4 mg Capsule Take 0.4 mg by mouth daily. ??? B Complex-Vitamin C-Folic Acid (NEPHROCAP) 1 mg Capsule Take 1 capsule by mouth daily. ??? gabapentin (NEURONTIN) 300 mg capsule Take 300 mg by mouth 3 times daily. ??? sertraline (ZOLOFT) 25 mg tablet Take 50 mg by mouth daily. ??? pravastatin (PRAVACHOL) 40 mg Tablet Take 40 mg by mouth daily. No current facility-administered medications on file prior to visit. Past medical/surgical history: Patient Active Problem List Diagnosis Code ??? Proliferative diabetic retinopathy, both eyes E11.3593 ??? HTN (hypertension) I10 ??? GERD (gastroesophageal reflux disease) K21.9 ??? 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 Hyperopia H52.00 ??? 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 Type 2 diabetes mellitus with ESRD (end-stage renal disease) E11.22, N18.6 ??? Ocular hypertension of right eye. Postop H40.051 ??? Eye pain H57.10 ??? Pseudophakia of both eyes Z96.1 ??? PCO (posterior capsular opacification) H26.499 ??? Class 2 severe obesity due to excess calories with serious comorbidity and body mass index (BMI) of 39.0 to 39.9 in adult E66.01, Z68.39 ??? Pre-transplant evaluation for ESRD (end stage renal disease) Z01.818 ??? Closed fracture of right proximal humerus S42.201A ??? Closed nondisplaced fracture of shaft of right clavicle S42.024A ??? Right scapula fracture S42.101A ??? Fall W19.XXXA ??? ESRD on dialysis N18.6, Z99.2 Past Medical History: Diagnosis Date ??? 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 Anxiety ??? Arthritis ??? Doan's palsy 2020 ??? Cataract. Dense with synechiae. Right eye. 06/21/2012 ??? Cellulitis 10/19/2018 ??? Closed fracture of right proximal humerus 07/30/2019 ??? Complication of anesthesia Had ?laryngospasm post extubation in OR 04/03/12, requrring brief reintubation. ??? Diabetes mellitus 1995 ??? Difficult intubation Two attempts (Mac3 and Bajwa 3 successful x 1 attempt. Suggest videolaryngoscope would be easier for future. ??? DM eyes ??? GERD (gastroesophageal reflux disease) no regular tx ??? Hyperlipidemia ??? Hypertension ??? Neuromuscular disorder ??? Type 2 diabetes mellitus with stage 5 chronic kidney disease not on chronic dialysis, with long-term current use of insulin Past Surgical History: Procedure Laterality Date ??? CATARACT EXTRACTION, EXTRACAPSULAR, W/ LENS INSERTION 11/29/12 OS - DMM ??? CATARACT REMOVAL 07/18/12 OD Swendris ??? INTRAVITREAL INJECTION Left 10/12/2019 Eylea OS for DME per NNB ??? INTRAVITREAL INJECTION Left 11/09/2019 Eylea OS for DME per NNB ??? INTRAVITREAL INJECTION Left 12/07/2019 Eylea OS for DME per NNB ??? INTRAVITREAL INJECTION Left 01/04/2020 Eylea OS for DME per NNB ??? INTRAVITREAL INJECTION Left 02/15/2020 Eylea OS for DME per NNB ??? INTRAVITREAL INJECTION Left 03/21/2020 Eylea OS for DME per NNB ??? IR DIALYSIS ACCESS - AV FISTULA EVALUATIONS 06/17/2020 IR Dialysis Access - AV Fistula Evaluations 06/17/2020 Kimani Larson MD [facility] INTERVENTIONL RAD ??? IR DIALYSIS ACCESS - AV FISTULA EVALUATIONS 11/04/2020 IR Dialysis Access - AV Fistula Evaluations 11/04/2020 Kimani Larson MD [facility] INTERVENTIONL RAD ??? PERIPHERAL IRIDOTOMY 04/06/2012 OD Swendris ??? PRO EXTRACAPSULAR CATARACT RMVL INSERTION IO LENS PROSTH CPLX WO ECP 07/18/2012 ??? PRO EXTRACAPSULAR CATARACT RMVL INSERTION IO LENS PROSTH W/O ECP 11/29/2012 CATARACT EXTRACTION, EXTRACAPSULAR, W/ LENS INSERTION performed by Erasmo Bajwa MD at [facility] OSC ? ? PRO REPAIR COMPLEX RETINA DETACH VITRECTOMY & MEMB PEEL 04/03/2012, 04/03/12 REPAIR COMPLEX RETINAL DETACHMENT, W/ VITRECTOMY, MEMBRANE PEELING performed by Matteo Diane MD at [facility] MAIN OR ? ? PRO REPAIR COMPLEX RETINA DETACH VITRECTOMY & MEMB PEEL 07/31/2012 REPAIR COMPLEX RETINAL DETACHMENT, W/ VITRECTOMY, MEMBRANE PEELING performed by Matteo Diane MD at [facility] MAIN OR ? ? PRO REPAIR COMPLEX RETINA DETACH VITRECTOMY & MEMB PEEL 01/08/2013 REPAIR COMPLEX RETINAL DETACHMENT, W/ VITRECTOMY, MEMBRANE PEELING performed by Matteo Diane MD at [facility] MAIN OR ??? PRO TX EXTENSIVE RETINOPATHY, PHOTOCOAGULATION 07/06/2011 OS CBC ??? PRO TX EXTENSIVE RETINOPATHY, PHOTOCOAGULATION 07/27/2011 OS CBC ??? PRO TX EXTENSIVE RETINOPATHY, PHOTOCOAGULATION 09/21/2011 OS CBC ??? PRO TX EXTENSIVE RETINOPATHY, PHOTOCOAGULATION 12/20/2011 OS MANN ??? PRO TX EXTENSIVE RETINOPATHY, PHOTOCOAGULATION 01/04/2012 OS MANN ??? VITRECTOMY, W/ MEMBRANE STRIPPING 04/03/2012 OD, CBC ??? YAG CAPSULOTOMY 11/15/2013 OS - Dr Bajwa Social history and habits: Social History Tobacco Use ??? Smoking status: Former Smoker ??? Smokeless tobacco: Never Used ??? Tobacco comment: quit in his 20's Vaping Use ??? Vaping Use: Never used Substance Use Topics ??? Alcohol use: No ??? Drug use: No Significant family history: Family History Problem Relation Age of Onset ??? Glaucoma Mother ??? Diabetes Mother ??? Diabetes Father ??? Hypertension Father ??? Cataracts Neg Hx ??? Macular Degeneration Neg Hx ??? Retinal Detachment Neg Hx ??? Anesthesia Reaction Neg Hx ??? Amblyopia Neg Hx ??? Blindness Neg Hx ??? Cancer Neg Hx ??? Strabismus Neg Hx ??? Stroke Neg Hx ??? Thyroid Disease Neg Hx ??? Heart Disease Neg Hx Pertinent ROS: as per HPI Physical exam: Pending (to be performed in interventional radiology the day of procedure) ASA: Pending (to be assessed in interventional radiology the day of procedure) Mallampati class: Pending (to be assessed in interventional radiology the day of procedure) 12/23/2021 HERVE High documented in this encounter Plan of Treatment Not on file documented as of this encounter Visit Diagnoses Not on filedocumented in this encounter Care Teams Equipment Sterilizer Relationship Specialty Start Date End Date Kimani Leger MD [address] [place] [address] PCP - General Family Medicine 02/10/21 documented as of this encounter
--- OUTSIDE RECORDS SUMMARY | 2023-12-28 16:36 | XMS_ITS ---
Author Name Simi Mcfadden Address [address] [place] [address] Phone [phone] Organization [facility] e, NA DOCUMENT DISCLAIMER Multiple document versions may exist, please be sure you review the latest version. The information in the [facility] Progress Note Document represents a providers documented clinical note containing certain health and medical information. It may not contain the complete medical history for the patient and should be independently verified. The represented time in the document is Eastern Time PROVIDER ROUNDING NOTE BASIC Patient:?SINDI?FERNANDA,?1960,?63y,?M Dialysis?Location:?[facility] Attending?Dry Cleaning Machine Operator:?Too?Eddie Service?Date:?06/08/2023 Service?Provider:?Simi?Lesa,?CITY COUNCILMAN I?met?face?to?face?with?the?patient?today. OVERVIEW The?patient?presented?with?ESRD?on?dialysis Primary?cause?of?renal?failure:?Type?2?diabetes?mellitus&#16 0;with?diabetic?chronic?kidney?disease Comments:?06/08/23?-?Stable?dialysis?treatment.?No?acute?issues?or?complaints.? 06/06/23?-?Missed?dialysis?on?Tuesday?due?to?GI?bug.? Feeling?better?today.?High?IDWG?due?to?missed?treatment. Stable?treatment.? 05/18/23?patient's?diarrhea?has?resolved.?He?had?no?prior&#16 0;antibiotics.?He?can't?comment?on?whether?it?was?bloody&#16 0;or?not?because?of?his?visual?impairment.?It?seems?to& #160;be?resolving,?however.?If?it?occurs,?we?can?send?stool?samples. Medications?and?labs?reviewed. LAST?HOSPITALIZATION Discharge?Diagnosis:?R78.81?Bacteremia Admission?Date?08/15/22 Discharge?Date?08/18/22 DIALYSIS?PRESCRIPTION ??IHD?3x?Week?Start?date:?04/04/23 ??Dialyzer:?180NRe?Optiflux ??BFR:?450 ??DFR:?Manual?500 ??Potassium:?2.0 ??Sodium:?137 ??EDW:?98.5 ??Duration:?4:00 ??Calcium:?2.5 ??Bicarb:?35 ??Rx?updated?on:?04/04/2023 TREATMENT?ASSESSMENT BP?Stand?Pre ??06/06/2023:?148/67 ??06/01/2023:?119/81 ??05/30/2023:?135/84 BP?Sit?Pre ??06/06/2023:?143/71 ??06/01/2023:?146/68 ??05/30/2023:?190/78 BP?Stand?Post ??06/06/2023:?154/79 ??06/01/2023:?134/69 ??05/30/2023:?179/78 BP?Sit?Post ??06/06/2023:?165/98 ??06/01/2023:?133/79 ??05/30/2023:?176/101 Tx?Duration ??06/06/2023:?4:04 ??06/01/2023:?3:55 ??05/30/2023:?3:58 Missed?Treatments 1?-?last?30?days 1?-?last?60?days 2/2?-?recent FLUID?ASSESSMENT EDW?(kg) ??06/06/2023:?98.5 ??06/01/2023:?98.5 ??05/30/2023:?98.5 Weight?Pre?(kg) ??06/06/2023:?104.7 ??06/01/2023:?101.2 ??05/30/2023:?102.0 Weight?Post?(kg) ??06/06/2023:?100.1 ??06/01/2023:?98.8 ??05/30/2023:?98.8 PWV?(kg) ??06/06/2023:?1.6 ??06/01/2023:?0.3 ??05/30/2023:?0.3 UF?Rate?(mL/kg/hr) ??06/06/2023:?11.3 ??06/01/2023:?6.2 ??05/30/2023:?8.2 ADEQUACY?ASSESSMENT spKt/V,?URR ??05/04/2023:?1.79,?78.0 ??04/04/2023:?1.6,?74.0 ??03/07/2023:?1.79,?78.0 ACCESS?ASSESSMENT ??Access?Type:?AVFistula ??Access?SubType:?Standard ??Access?Status:?Active?(In?Use)?-?09/14/2017 ??Access?Location:?Left?Forearm ??Created:?04/13/2017 Flow ??06/08/2023:?811 ??05/09/2023:?949 ??04/06/2023:?973 ANEMIA?ASSESSMENT HGB ??05/30/2023:?11.3 ??05/23/2023:?11.6 ??05/16/2023:?12.0 ?? Ferritin ??05/04/2023:?953.0 ??04/04/2023:?863.0 ??03/07/2023:?726.0 Mircera,?IVP?(mcg) ??05/06/2023:?75 ??04/22/2023:?75 ??04/08/2023:?75 Iron?Sucrose?(Venofer)?(mg) ??05/06/2023:?50 ??04/29/2023:?50 ??04/22/2023:?50 BMM?ASSESSMENT Calcium ??05/30/2023:?8.8 ??05/23/2023:?8.5 ??05/16/2023:?8.9 ?? PTH,?Intact ??05/04/2023:?379.0 ??04/04/2023:?366.0 ??03/07/2023:?429.0 Vitamin?D?(Calcitriol)?Oral?(mcg) ??06/06/2023:?0.75 ??06/01/2023:?0.75 ??05/30/2023:?0.75 NUTRITION?ASSESSMENT Albumin,?Potassium ??05/04/2023:?4.3,?4.6 ??04/04/2023:?4.3,?5.0 ??03/07/2023:?4.2,?5.2 ?? eNPCR ??05/04/2023:?1.33 ??04/04/2023:?1.14 ??03/07/2023:?1.21 DIAGNOSIS Chief?Complaint:?N18.6?End?stage?renal?disease Patient?data?updated?06/08/2023?at?10:31?AM Signed?By:?Lesa,?Simi,?CITY COUNCILMAN??on?06/08/2023?10:31:22 AM END OF DOCUMENT
--- OUTSIDE RECORDS SUMMARY | 2023-12-28 16:36 | XMS_ITS | Encounter Summary ---
Author Organization [facility] [place] [address] Care Team Providers Care Diesel Service Journeyman Name Role Phone Kimani Leger MD Primary Care Provider [phone] Reason for Referral * Consultation (Routine) - Authorized Specialty Diagnoses / Procedures Referred By Puneet hallman Referred To Contact Ophthalmology Diagnoses Type 2 diabetes mellitus with retinopathy without macular edema, unspecified laterality, unspecified retinopathy severity, unspecified whether assisted insulin use Kimani Leger MD [address] [place] [address] Dr Matias [facility] [place] [address] Gudelia Carter OD [facility] [place] [address] Referral ID Status Reason Start Date Expiration Date Visits Requested Visits Authorized [id number] Authorized Consult, Test & Treat PCP Updated and/or Approved 08/15/2023 08/14/2024 6 6 Encounter Details Date Type Department Care Team (Latest Contact Info) Description 08/15/2023 Transcribe Orders eDH Incoming Referrals [phone] Kimani Leger MD [address] [place] [address] Type 2 diabetes mellitus with retinopathy without macular edema, unspecified laterality, unspecified retinopathy severity, unspecified whether assisted insulin use Social History Tobacco Use Types Packs/Day Years Used Date Smoking Tobacco: Former Smokeless Tobacco: Never Comments:quit in his 20's Alcohol Use Standard Drinks/Week Comments No 0 (1 standard drink = 0.6 oz pur e alcohol) Sex and Gender Information Value Date Recorded Sex Assigned at Not on file Gender Identity Not on file Sexual Orientation Not on file documented as of this encounter Plan of Treatment Scheduled Referrals Name Type Priority Associated Diagnoses Order Schedule Referral to Ophthalmology Outpatient Referral Routine Type 2 diabetes mellitus with retinopathy without macular edema, unspecified laterality, unspecified retinopathy severity, unspecified whether assisted insulin use Ordered: 08/15/2023 documented as of this encounter Visit Diagnoses Diagnosis Type 2 diabetes mellitus with retinopathy without macular edema, unspecified laterality, unspecified retinopathy severity, unspecified whether assisted insulin use documented in this encounter Care Teams Diesel Service Journeyman Relationship Specialty Start Date End Date Kimani Leger MD [address] [place] [address] PCP - General Family Medicine 02/10/21 documented as of this encounter
--- OUTSIDE RECORDS SUMMARY | 2023-12-28 16:36 | XMS_ITS | Encounter Summary ---
Author Organization [facility] [facility] [place] [place] [address] Care Team Providers Care Pbx Operator Name Role Phone Kimani Leger MD Primary Care Provider [phone] Reason for Visit * Reason Comments Medication Refill Encounter Details Date Type Department Care Team (Late st Contact Info) Description 06/08/2021 Refill [place] [address] Too Morgan MD [facility] [place] [address] Social History Tobacco Use Types Packs/Day Years [...] as of this encounter Plan of Treatment Not on file documented as of this encounter Visit Diagnoses Not on filedocumented in this encounter Care Teams Pbx Operator Relationship Specialty Start Date End Date Kimani Leger MD [address] [place] [address] PCP - General Family Medicine 02/10/21 documented as of this encounter
--- OUTSIDE RECORDS SUMMARY | 2023-12-28 16:36 | XMS_ITS | Encounter Summary ---
Author Organization [facility] [place] [address] Care Team Providers Care Account Installation Specialist Name Role Phone Jarad Keller DNP Primary Care Provider [phone] Encounter Details Date Type Department Care Team (Late st Contact Info) Description 11/04/2020 2:30 PM EDT - 11/04/2020 4:30 [place] [id number] Ceasar Gonzalez MD [facility] [place] [address] FISTULAGRAM Social History Tobacco Use Types Packs/Day Years Used Date Smoking Tobacco: Former Smokeless Tobacco: Never Comments:quit in his 20's Alcohol Use Standard Drinks/Week Comments No 0 (1 standard drink = 0.6 oz pur e alcohol) Sex and Gender Information Value Date Recorded Sex Assigned at Not on file Gender Identity Not on file Sexual Orientation Not on file documented as of this encounter Last Filed Vital Signs Vital Sign Reading Time Taken Comments Blood Pressure 149/76 11/04/2020 4:30 PM EDT Pulse 95 11/04/2020 2:07 PM EDT Temperature 36.2 ??C (97.2 ??F) 11/04/2020 4:05 PM ED T Respiratory Rate 16 11/04/2020 4:30 PM EDT Oxygen Saturation 97% 11/04/2020 4:30 PM EDT Inhaled Oxygen Concentration - - Weight 103.5 kg (228 lb 2.8 oz) 11/04/2020 2:07 PM EDT Height 162.6 cm (5' 4) 11/04/2020 2:07 PM EDT Body Mass Index 39.17 11/04/2020 2:07 PM EDT documented in this encounter Discharge Instructions * Discharge Instructions* Ania Morrow RN - 11/04/2020 4:35 PM EDT [facility] Vascular and Interventional Radiology Discharge Instructions after your Fistulagram Bandage: The dressing(s) over the puncture site(s) in your fistula is/are covered with a dressing of folded gauze and bandaid(s). These should be left in place until the possibility of bleeding has passed (usually about six hours). When you do remove the dressing, do so slowly. If Bleeding Occurs: apply firm (but not excessive) direct pressure just enough to stop the bleeding, for 10-15 minutes. If the bleeding continues, have someone drive you to the nearest Emergency Department or call 911. Notify your Dialysis Center: ??? If you notice a change in the pulse or thrill in your fistula. ??? If you notice a change in your skin color at or around the fistula. ??? If you notice a change in the circulation below the fistula (i.e., fingers or toes) such as cool and/or pale skin. ??? If you see any redness or swelling. ??? If you develop a fever greater than or equal to 101 degrees Fahrenheit. ??? If you develop shaking chills. ??? If you develop pain around the fistula site. ??? If you have questions about your fistula or dialysis. When to call the Interventional Radiology Department: Please call with any questions or concerns. If it is during regular office hours, please call [phone]. If it is after regular office hours, or on weekends or holidays, please call [phone] and ask to speak to the Associate Team Physician traveling construction superintendent for Interventional Radiology. You have received medication during your procedure to help lesson anxiety and keep you comfortable.These medications affect judgement and reaction time. We recommend that you do not drive, operate equipment, sign any important documents, or smoke unattended for 24 hours following your procedure. Because of the sedation, be careful on stairs, as you may be unsteady on your feet. You may resume your regular diet as tolerated. IV site -- slight redness, or tenderness is normal, you can use a warm compress. If tenderness and redness increases or foul drainage occurs, please contact your M. D. Revised 02/15/19 documented in this encounter Medications at Time of Discharge Medication Sig Dispensed Refills Start Date End Date OneTouch Verio Flex meter Misc TEST BLOOD GLUCOSE THREE TIMES A DAY 10/04/2019 NovoLOG Flexpen U-100 Insulin Insulin Pen Inject 6 Units subcutaneously 3 times daily (with meals). ICD 10 Code: E11.65 15 mL 5 10/01/2019 Basaglar KwikPen U-100 Insulin 100 unit/mL (3 mL) pen Inject 20 Units subcutaneously daily. ICD 10 Code: E11.65 15 mL 5 10/01/2019 insulin needles, disposable, 31 gauge x 3/16 Needle Inject 1 each subcutaneously 4 times daily. ICD 10 Code: E11.65 150 each 5 09/17/2019 epoetin babs-epbx (Retacrit) 10,000 unit/mL Solution Inject 1 mL subcutaneously once as needed in Dialysis. 1 mL 08/04/2019 melatonin 3 mg Tablet Take 2 tablets by mouth nightly. 08/04/2019 sevelamer carbonate (Renvela) 800 mg Tablet Take 1 tablet by mouth 3 times daily (with meals). 08/04/2019 aspirin 325 mg Tablet Take 1 tablet by mouth daily. 90 tablet 3 08/07/2019 blood sugar diagnostic strips Strip Use to check blood sugar 3 times daily 200 each 11 08/18/2018 losartan (COZAAR) 50 mg Tablet Take 50 mg by mouth daily. bumetanide (BUMEX) 1 mg Tablet Take 2 mg by mouth 2 times daily. B Complex-Vitamin C-Folic Acid (NEPHROCAP) 1 mg Capsule Take 1 capsule by mouth daily. gabapentin (NEURONTIN) 300 mg capsule Take 300 mg by mouth 3 times daily. sertraline (ZOLOFT) 25 mg tablet Take 50 mg by mouth daily. amLODIPine (Norvasc) 5 mg Tablet Take 2 tablets by mouth daily. 180 tablet 3 05/20/2020 02/25/2023 loratadine (CLARITIN) 10 mg Tablet Take 10 mg by mouth daily as needed for Allergies. 01/22/2022 tamsulosin (FLOMAX) 0.4 mg Capsule Take 0.4 mg by mouth daily. 01/15/2022 pravastatin (PRAVACHOL) 40 mg Tablet Take 40 mg by mouth daily. 01/15/2022 documented as of this encounter Progress Notes * Sandhya Green RN - 11/04/2020 4:41 PM EDT Reviewed D/C instructions with patient. All questions answered, verbalized understanding. Paper copy sent home with patient and encouraged to phone provider with any questions or concerns. documented in this encounter Plan of Treatment Not on file documented as of this encounter Procedures Procedure Name Priority Date/Time Associated Diagnosis Comments FISTULAGRAM 11/04/2020 2:38 PM EDT ESRD (end stage renal disease) POCT GLUCOSE Routine 11/04/2020 1:59 PM EDT HC VENIPUNCTURE STAT 11/04/2020 1:34 PM EDT documented in this encounter Results * POCT Glucose (11/04/2020 1:59 PM EDT) [facility] Signature Glucose, POC 172 65 - 199 mg/dL [facility] Comment: Supplemental ranges: <140 mg/dL before meals <180 mg/dL all other times of the day Blood 11/04/2020 1:59 PM EDT 11/04/2020 1:59 PM EDT Ceasar Gonzalez MD POINT OF CARE TEST O RDERABLES Performing Organization Address City/[facility] Co de Phone Number [facility] [place] [address] * Potassium (11/04/2020 1:34 PM EDT) Potassium 3.9 3.5 - 5.0 mmol/L [facility] Comment: Please note: ??Patients with WBC >100,000 may have falsely elevated Potassium levels. ??For accurate Potassium quantification in these patients send serum separator tube (gold top) for subsequent determinations. ??Contact the Clinical Chemistry Laboratory if there are any questions. Blood 11/04/2020 1:34 PM EDT 11/04/2020 1:52 PM EDT Narrative Resulting Agency Comment Spec In Lab Azucena Vanessa MD CHEMISTRY ORDERABLES Performing Organization Address [facility] Co de Phone Number [facility] [place] [address] documented in this encounter Visit Diagnoses Not on filedocumented in this encounter Active and Recently Administered Medications Care Teams Account Installation Specialist Relationship Specialty Start Date End Date Jarad Keller DNP PCP - General Family Medicine 06/05/18 02/09/21 documented as of this encounter
--- OUTSIDE RECORDS SUMMARY | 2023-12-28 16:36 | XMS_ITS ---
Author Name Too Morgan Address [address] [place] [id number] Phone [phone] Organization [facility] e, NA DOCUMENT DISCLAIMER Multiple document versions may exist, please be sure you review the latest version. The information in the [facility] Progress Note Document represents a providers documented clinical note containing certain health and medical information. It may not contain the complete medical history for the patient and should be independently verified. The represented time in the document is Eastern Time PROVIDER ROUNDING NOTE COMPREHENSIVE Patient:?SINDI?FERNANDA,?1960,?63y,?M Dialysis?Location:?[facility] Attending?Public Relations Intern:?Too?Eddie Service?Date:?05/25/2023 Service?Provider:?Too?Eddie,? I?met?face?to?face?with?the?patient?today. OVERVIEW The?patient?presented?with?ESRD?on?dialysis Primary?cause?of?renal?failure:?Type?2?diabetes?mellitus&#16 0;with?diabetic?chronic?kidney?disease Comments:?05/18/23?patient's?diarrhea?has?resolved.?He?had?no ?prior?antibiotics.?He?can't?comment?on?whether?it?was& #160;bloody?or?not?because?of?his?visual?impairment.?It&#160 ;seems?to?be?resolving,?however.?If?it?occurs,?we?can send?stool?samples. LAST?HOSPITALIZATION Discharge?Diagnosis:?R78.81?Bacteremia Admission?Date?08/15/22 Discharge?Date?08/18/22 DIALYSIS?PRESCRIPTION ??IHD?3x?Week?Start?date:?04/04/23 ??Dialyzer:?180NRe?Optiflux ??BFR:?450 ??DFR:?Manual?500 ??Potassium:?2.0 ??Sodium:?137 ??EDW:?98.5 ??Duration:?4:00 ??Calcium:?2.5 ??Bicarb:?35 ??Rx?updated?on:?04/04/2023 TREATMENT?ASSESSMENT Blood?pressure?controlled.?No?changes?indicated.? BP?Stand?Pre ??05/23/2023:?134/74 ??05/18/2023:?128/58 BP?Sit?Pre ??05/23/2023:?142/76 ??05/20/2023:?161/82 ??05/18/2023:?137/32 BP?Stand?Post ??05/23/2023:?134/56 ??05/20/2023:?128/61 ??05/18/2023:?160/81 BP?Sit?Post ??05/23/2023:?152/85 ??05/20/2023:?139/70 ??05/18/2023:?143/68 Tx?Duration ??05/23/2023:?4:00 ??05/20/2023:?4:04 ??05/18/2023:?4:04 Missed?Treatments 0?-?last?30?days 0?-?last?60?days FLUID?ASSESSMENT Fluid?status?acceptable.?Interdialytic?weight?gain?acceptable.?No ?changes?indicated.? EDW?(kg) ??05/23/2023:?98.5 ??05/20/2023:?98.5 ??05/18/2023:?98.5 Weight?Pre?(kg) ??05/23/2023:?101.9 ??05/20/2023:?101.5 ??05/18/2023:?100.8 Weight?Post?(kg) ??05/23/2023:?98.8 ??05/20/2023:?98.5 ??05/18/2023:?98.9 PWV?(kg) ??05/23/2023:?0.3 ??05/20/2023:?0.0 ??05/18/2023:?0.4 UF?Rate?(mL/kg/hr) ??05/23/2023:?7.8 ??05/20/2023:?7.5 ??05/18/2023:?4.7 ADEQUACY?ASSESSMENT Adequacy?target?met.?Prescription?compliance?acceptable.?No?changes?indicated.? spKt/V,?URR ??05/04/2023:?1.79,?78.0 ??04/04/2023:?1.6,?74.0 ??03/07/2023:?1.79,?78.0 ACCESS?ASSESSMENT ??Access?Type:?AVFistula ??Access?SubType:?Standard ??Access?Status:?Active?(In?Use)?-?09/14/2017 ??Access?Location:?Left?Forearm ??Created:?04/13/2017 Flow ??05/09/2023:?949 ??04/06/2023:?973 ??03/09/2023:?958 Vascular?access?reviewed.?Current?access?is?permanent?and?functioning?well. ANEMIA?ASSESSMENT HGB?at?goal.?Iron?parameters?acceptable.?MICHEL?dose?adequate.& #160;No?changes?indicated.? HGB,?TSAT ??05/16/2023:?12.0,?- ??05/09/2023:?11.4,?- ??05/04/2023:?11.8,?33.0 ?? Ferritin ??05/04/2023:?953.0 ??04/04/2023:?863.0 ??03/07/2023:?726.0 Mircera,?IVP?(mcg) ??05/06/2023:?75 ??04/22/2023:?75 ??04/08/2023:?75 Iron?Sucrose?(Venofer)?(mg) ??05/06/2023:?50 ??04/29/2023:?50 ??04/22/2023:?50 BMM?ASSESSMENT PTH?controlled.?Calcium?controlled.?Phosphorus?controlled.? Phosphorus,?Calcium ??05/16/2023:?-,?8.9 ??05/09/2023:?-,?8.5 ??05/04/2023:?6.3,?8.5 ?? PTH,?Intact ??05/04/2023:?379.0 ??04/04/2023:?366.0 ??03/07/2023:?429.0 Vitamin?D?(Calcitriol)?Oral?(mcg) ??05/23/2023:?0.75 ??05/20/2023:?0.75 ??05/18/2023:?0.75 NUTRITION?ASSESSMENT Potassium?controlled.?Albumin?controlled.?No?changes?indicated.? Albumin,?Potassium ??05/04/2023:?4.3,?4.6 ??04/04/2023:?4.3,?5.0 ??03/07/2023:?4.2,?5.2 ?? eNPCR ??05/04/2023:?1.33 ??04/04/2023:?1.14 ??03/07/2023:?1.21 DIAGNOSIS Chief?Complaint:?N18.6?End?stage?renal?disease Patient?data?updated?05/25/2023?at?10:01?AM Signed?By:?Eddie,?Too,???on?05/25/2023?10:04:25 AM END OF DOCUMENT
--- OUTSIDE RECORDS SUMMARY | 2023-12-28 16:36 | XMS_ITS | Clinical Summary ---
[place] [address] Care Team Providers Care Finishing Department Supervisor Name Role Phone Kimani Leger MD Primary Care Provider [phone] Allergies Active Allergy Reactions Criticality Noted Date Comments Mirtazapine 11/01/2016 Other reaction(s): Other (see comments) Agitation, Nightmares. Medications Medication Sig Dispensed Refills Start Date End Date Status sertraline (ZOLOFT) 25 mg tablet Take 50 mg by mouth daily. Active gabapentin (NEURONTIN) 300 mg capsule Take 300 mg by mouth 3 times daily. Active losartan (COZAAR) 50 mg Tablet Take 50 mg by mouth daily. Active bumetanide (BUMEX) 1 mg Tablet Take 2 mg by mouth 2 times daily. Active B Complex-Vitamin C-Folic Acid (NEPHROCAP) 1 mg Capsule Take 1 capsule by mouth daily. Active blood sugar diagnostic strips Strip Use to check blood sugar 3 times daily 200 each 11 08/18/2018 Active aspirin 325 mg Tablet Take 1 tablet by mouth daily. 90 tablet 3 08/07/2019 Active epoetin babs-epbx (Retacrit) 10,000 unit/mL Solution Inject 1 mL subcutaneously once as needed in Dialysis. 1 mL 08/04/2019 Active melatonin 3 mg Tablet Take 2 tablets by mouth nightly. 08/04/2019 Active sevelamer carbonate (Renvela) 800 mg Tablet Take 1 tablet by mouth 3 times daily (with meals). 08/04/2019 Active Additional Information Patient taking differently: 1,600 mgOral 3 TIMES DAILY WITH MEALS, Reported on 01/15/2022 insulin needles, disposable, 31 gauge x 3/16 Needle Inject 1 each subcutaneously 4 times daily. ICD 10 Code: E11.65 150 each 5 09/17/2019 Active NovoLOG Flexpen U-100 Insulin Insulin Pen Inject 6 Units subcutaneously 3 times daily (with meals). ICD 10 Code: E11.65 15 mL 5 10/01/2019 Active Additional Information Patient taking differently: 12-16 UnitsSubcutaneous 3 TIMES DAILY WITH MEALS, ICD 10 Code: E11.65, Reported on 02/07/2020 Basaglar KwikPen U-100 Insulin 100 unit/mL (3 mL) pen Inject 20 Units subcutaneously daily. ICD 10 Code: E11.65 15 mL 5 10/01/2019 Active Additional Information Patient taking differently: 50 UnitsSubcutaneous DAILY, ICD 10 Code: E11.65, Reported on 01/15/2022 OneTouch Verio Flex meter Misc TEST BLOOD GLUCOSE THREE TIMES A DAY 10/04/2019 Active Trulicity 0.75 mg/0.5 mL Pen Injector 06/02/2021 Active amLODIPine (Norvasc) 10 mg tablet Take 1 tablet by mouth daily. 30 tablet 11 02/25/2023 4 Active Active Problems Problem Noted Date Diagnosed Date ESRD on dialysis 06/11/2020 Closed fracture of right proximal humerus 2019 Closed nondisplaced fracture of shaft of right c lavicle 07/30/2019 Right scapula fracture 07/30/2019 Fall 07/30/2019 Pre-transplant evaluation fo r ESRD (end stage renal disease) 06/20/2018 Class 2 severe obesity due t o excess calories with serious comorbidity and body mass index (BMI) of 39.0 to 39.9 in adult 06/08/2018 Pseudophakia of both eyes 10/03/2013 PCO (posterior capsular opacification) 4 Eye pain 02/19/2013 Ocular hypertension of right eye. Postop 013 Ischemic diabetic maculopathy 11/06/2012 Type 2 diabetes mellitus wit h ESRD (end-stage renal disease) 11/06/2012 Hyperopia 05/03/2012 Acute angle-closure glaucoma of right eye 2011 HTN (hypertension) 04/03/2012 GERD (gastroesophageal reflux disease) 2 Proliferative diabetic retinopathy, both eyes Resolved Problems Problem Noted Date Diagnosed Date Resolved Date Cellulitis 10/19/2018 06/11/2020 Immunizations Name Administration Dates Next Due Moderna Covid-19 Monovalent 12Yr+ ([employer] Counterperson 100mcg) 03/12/2021,08/25/2020,07/28/2020 Pneumococcal Polysaccharide (Pneumovax 23) 05/23 Family History Medical History Relation Comments Diabetes Father Hypertension Father Diabetes Mother Glaucoma Mother Amblyopia Neg Hx Anesthesia Reaction Neg Hx Blindness Neg Hx Cancer Neg Hx Cataracts Neg Hx Heart Disease Neg Hx Macular Degeneration Neg Hx Retinal Detachment Neg Hx Strabismus Neg Hx Stroke Neg Hx Thyroid Disease Neg Hx Relation Status Comments Father Mother Social History Tobacco Use Types Packs/Day Years Used Date Smoking Tobacco: Former Smokeless Tobacco: Never Comments:quit in his 20's Alcohol Use Standard Drinks/Week Comments No 0 (1 standard drink = 0.6 oz pur e alcohol) Sex and Gender Information Value Date Recorded Sex Assigned at Not on file Gender Identity Not on file Sexual Orientation Not on file Last Filed Vital Signs Vital Sign Reading Time Taken Comments Blood Pressure 118/69 01/25/2022 10:45 AM EDT Pulse 90 01/25/2022 6:36 AM EDT Temperature 36 ??C (96.8 ??F) 01/25/2022 11: 15 AM EDT Respiratory Rate 16 01/25/2022 10:4 5 AM EDT Oxygen Saturation 97% 01/25/2022 11: 00 AM EDT Inhaled Oxygen Concentration - - Weight 103.3 kg (227 lb 12.8 oz) 01/25/2022 6:36 AM EDT Height 162.6 cm (5' 4) 01/25/2022 6:36 AM EDT Body Mass Index 39.1 01/25/2022 6:36 AM EDT Plan of Treatment Health Maintenance Due Date Last Done Comments CT Colonography 1959 Colonoscopy 1959 Colorectal Cancer Screening 1959 FIT DNA 1959 FIT 1959 Sigmoidoscopy (10 year) with FIT yearly 1959 Sigmoidoscopy 1959 Lipid Screening 1977 Tdap adult 1978 Tetanus vaccine 1978 Pneumococcal Vaccine: At-Ris k 5-64yrs (2 of 2 - PCV) 05/23/2007 05/23/2006 Zoster vaccine (1 of 2) 2009 DM Hemoglobin A1c 05/08/2020 02/06/2020, , 07/29/2019, Additional history exists DM Creatinine yearly 06/17/2021 06/17/2020, 08/03/2019, 08/02/2019, Additional history exists DM Opthalmology Exam 06/08/2022 06/08/2021, 04/22/2020, 01/04/2020, Additional history exists Covid-19 Vaccine (4 - 2022-2 4 season) 2022 03/12/2021, 08/25/2020, 07/28/2020 Influenza (Flu) vaccine (1 o f 1 - Influenza standard series) 01/01/2024 HIV screen Completed 02/06/2020, 06/08/2018 Hepatitis C Screening Completed 02/06/2020 , 06/08/2018, 06/08/2018 Medical Devices Implanted Type Area Neuro Urologist Device Identifier Shelf Expiration Date Model / Serial / Lot Iol,Ma60ac,25. 0 ([id number]) ([employer]) - [id number] Implanted:Qty: 1 on 07/18/2012 by Phillip Schwartz MD at [facility] IMPLANTS Right: Eye [employer] - [id number] 10/18/2012 MA60AC 25.0 / [id number] / Iol,Sn60wf,27. 0 ([id number]) ([employer]) - [id number] Implanted:Qty: 1 on 11/29/2012 by Erasmo Bajwa MD at [facility] IMPLANTS Left: Eye 07/30/2016 SN60WF 27.0 / [id number] / [id number] 27.0 Procedures Procedure Name Priority Date/Time Associated Diagnosis Comments HC VENIPUNCTURE Routine 06/17/2020 1:48 PM EST ESRD on dialysis Type 2 diabetes mellitus with ESRD (end-stage renal disease) HC HIV SCREEN, 4TH GENERATION Routine 02/06/2020 2:48 PM EDT Coronary artery disease, angina presence unspecified, unspecified vessel or lesion type, unspecified whether ramona or transplanted heart Benign prostatic hyperplasia, unspecified whether lower urinary tract symptoms present Diabetes mellitus due to underlying condition with diabetic nephropathy, 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 End stage renal disease Pre-transplant evaluation for kidney transplant HC HEMOGLOBIN A1C Routine 02/06/2020 2:4 8 PM EDT Coronary artery disease, angina presence unspecified, unspecified vessel or lesion type, unspecified whether ramona or transplanted heart Benign prostatic hyperplasia, unspecified whether lower urinary tract symptoms present Diabetes mellitus due to underlying condition with diabetic nephropathy, 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 End stage renal disease Pre-transplant evaluation for kidney transplant HC HEPATITIS C ANTIBODY Routine 02/06/2020 2:48 PM EDT Coronary artery disease, angina presence unspecified, unspecified vessel or lesion type, unspecified whether ramona or transplanted heart Benign prostatic hyperplasia, unspecified whether lower urinary tract symptoms present Diabetes mellitus due to underlying condition with diabetic nephropathy, 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 End stage renal disease Pre-transplant evaluation for kidney transplant from Last 3 Months or Most Recently Relevant to Health Maintenance Results * (ABNORMAL) Basic Metabolic Panel (non-fasting) (06/17/2020 1:48 PM EST) [facility] Glucose 258(H) 65 - 199 mg/dL [facility] Comment:Diabetes: >=200 mg/d L plus symptoms Blood Urea Nitrogen 15 10 - 20 mg/dL [facility] Creatinine 2.44(H) 0.80 - 1.50 mg/dL [facility] Sodium 137 135 - 145 mmol/L [facility] Potassium 4.0 3.5 - 5.0 mmol/L [facility] Comment: Please note: ??Patients with WBC >100,000 may have falsely elevated Potassium levels. ??For accurate Potassium quantification in these patients send serum separator tube (gold top) for subsequent determinations. ??Contact the Clinical Chemistry Laboratory if there are any questions. Chloride 93(L) 98 - 107 mmol/L [facility] Carbon Dioxide 35(H) 22 - 31 mmol/L [facility] Anion Gap 9 5 - 15 mmol/L [facility] Calcium 9.6 8.5 - 10.5 mg/dL [facility] Est Glomerular Filtration Rate 28(L) >=60 mL/min/1. 73 m?? [facility] Comment: This patient? s estimated glomerular filtration rate (eGFR) is between 28 mL/min/1.73 m2 (patients with less muscle mass per kg body weight) and 32 mL/min/1.73 m2 (patients with more muscle mass per kg body weight) as determined by the CKD-EPI equation. Assessment of eGFR is not appropriate when creatinine concentrations are rapidly changing. For clinical decisions where creatinine clearance will affect therapy, a 24-hour urine creatinine clearance may be advised. Assignment of CKD stage 1 ? 5 for patients with an eGFR near the transition point between stages may be based on clinical assessment of muscle mass and symptoms in addition to eGFR. Blood specimen (specimen) 06/17/2020 1:48 PM EST 06/17/2020 2:00 PM EST Narrative Resulting Agency Comment Spec In Lab Too Morgan MD CHEMISTRY ORDERABLE S [facility] [place] [address] * Hepatitis C Antibody (02/06/2020 2:48 PM EDT) Hepatitis C Antibody Negative Negative [facility] Blood specimen (specimen) 02/06/2020 2:48 PM EDT 02/06/2020 2:57 PM EDT Narrative Resulting Agency Comment Spec In Lab Young Coronado MD CHEMISTRY ORDERABLES [facility] [place] [address] * HIV Screen, 4th Generation ([facility]/CGP/APD/NLH) (02/06/2020 2:48 PM EDT) [facility] HIV Ab/Ag Screen Negative Negative [facility] Comment: This 4th Generation HIV test screens for the presence of the HIV-1 p24 antigen as well as antibodies reactive against HIV-1 and HIV-2. A negative screen does not rule out an acute HIV infection. If acute HIV infection is suspected, testing should be repeated in 2 - 3 weeks or HIV nucleic acid testing performed. Blood specimen (specimen) 02/06/2020 2:48 PM EDT 02/06/2020 2:57 PM EDT Narrative Resulting Agency Comment Spec In Lab Young Coronado MD CHEMISTRY ORDERABLES [facility] [place] [address] * (ABNORMAL) Hemoglobin A1c (02/06/2020 2:48 PM EDT) [facility] Hemoglobin A1c 10.0(H) 4.3 - 5.6 % [facility] Comment: Reference Range: 4.3 - 5.6% 5.7 - 6.4% - Increased Risk of Developing Diabetes Mellitus >= 6.5% - Consistent with diagnosis of Diabetes Mellitus In the absence of hyperglycemia (i.e. plasma glucose > 200 mg/dL) or classic symptoms of hyperglycemia a repeat measurement of HbA1c should be performed on a separate sample to confirm the diagnosis. Diagnosis and Classification of Diabetes Mellitus, Diabetes Care 2013; 36: Suppl. 1, S37-34 Estimated Average Glucose 239 mg/dL [facility] Comment: eAG equivalents for HbA1c percentages: HbA1c(%) ?eAG(mg/dL) 6.0 ?126 6.5 ?140 7.0 ?154 7.5 ?169 8.0 ?183 8.5 ?197 9.0 ?212 9.5 ?226 10.0 ? 240 Limitations: The eAG calculation has not been validated on women, individuals below 18 years old and above 70 years old, and individuals with hemoglobinopathies. Additional resources are available on the ADA website. Rohan JARA, Russell J, Shaw R, et al. ??Translating the A1C assay into estimated average glucose values. ??Diabetes Care 2008:31(8):7454-2759. Blood specimen (specimen) 02/06/2020 2:48 PM EDT 02/06/2020 2:57 PM EDT Narrative Resulting Agency Comment Spec In Lab Young Coronado MD CHEMISTRY ORDERABLES [facility] [place] [address] from Last 3 Months or Most Recently Relevant to Health Maintenance Advance Directives Documents on File Type Date Recorded Patient Telemarketer Expl anation Advance Directives and Luz giraldo Will 06/12/2018 12:10 PM 06/08/2018 * Attempt Cardiopulmonary Resuscitation - Inpatient (Latest Code Status on File) Date Activated Date Inactivated Comments 01/25/2022 7:01 AM 01/25/2022 2:21 PM Question Answer Comments Code Status decision made by: Patient * Attempt Cardiopulmonary Resuscitation - Inpatient Date Activated Date Inactivated Comments 11/04/2020 2:08 PM 11/05/2020 4:34 AM Question Answer Comments Code Status decision made by: Patient * Attempt Cardiopulmonary Resuscitation - Inpatient Date Activated Date Inactivated Comments 06/17/2020 2:12 PM 06/18/2020 4:55 AM Question Answer Comments Code Status decision made by: Patient * Full Code Date Activated Date Inactivated Comments 07/30/2019 12:52 AM 08/04/2019 6:08 PM Question Answer Comments Does patient have capacity to make decision: Yes * Full Code Date Activated Date Inactivated Comments 10/19/2018 5:26 PM 10/22/2018 4:31 PM Question Answer Comments Does patient have capacity to make decision: Yes Healthcare Agents on File Name Relationship Healthcare Agent [facility] p Communication Adriana Lopez Sibling First Alternate Health Care Agent Iva Blue Sibling Second Alternate Health Care Agent Care Teams Finishing Department Supervisor Relationship Specialty Start Date End Date Kimani Leger MD [address] [place] [id number] PCP - General Family Medicine 02/10/21
--- OUTSIDE RECORDS SUMMARY | 2023-12-28 16:36 | XMS_ITS ---
Author Name Simi Mcfadden Address [address] [place] [address] Phone [phone] Organization [facility], NA DOCUMENT DISCLAIMER Multiple document versions may exist, please be sure you review the latest version. The information in the [facility] Progress Note Document represents a providers documented clinical note containing certain health and medical information. It may not contain the complete medical history for the patient and should be independently verified. The represented time in the document is Eastern Time PROVIDER ROUNDING NOTE BASIC Patient:?SINDI?FERNANDA,?1960,?63y,?M Dialysis?Location:?[facility] Attending?Tubular Riveter:?Too?Eddie Service?Date:?04/04/2023 Service?Provider:?Simi?Lesa,?MANAGER CLINICAL PHARMACY I?met?face?to?face?with?the?patient?today. OVERVIEW The?patient?presented?with?ESRD?on?dialysis Primary?cause?of?renal?failure:?Type?2?diabetes?mellitus&#16 0;with?diabetic?chronic?kidney?disease Comments:?04/04/23?-?Stable?treatment. 03/21?Has?callus?ball?of?left?foot/advised?to?get?refer ral?to?surgery?via?PCP?for?debridement.?If?not?successf ul?will?refer?to?[facility]?vascular?surgery.?Access?ok Medications?and?labs?reviewed. LAST?HOSPITALIZATION Discharge?Diagnosis:?R78.81?Bacteremia Admission?Date?08/15/22 Discharge?Date?08/18/22 DIALYSIS?PRESCRIPTION ??IHD?3x?Week?Start?date:?04/04/23 ??Dialyzer:?180NRe?Optiflux ??BFR:?450 ??DFR:?Manual?500 ??Potassium:?2.0 ??Sodium:?137 ??EDW:?98.5 ??Duration:?4:00 ??Calcium:?2.5 ??Bicarb:?35 ??Rx?updated?on:?04/04/2023 TREATMENT?ASSESSMENT BP?Stand?Pre ??2023:?152/66 ??03/30/2023:?146/60 ??03/28/2023:?137/59 BP?Sit?Pre ??2023:?164/66 ??03/30/2023:?153/77 ??03/28/2023:?197/95 BP?Stand?Post ??2023:?115/64 ??03/30/2023:?112/84 ??03/28/2023:?149/69 BP?Sit?Post ??2023:?166/84 ??03/30/2023:?133/74 ??03/28/2023:?168/94 Tx?Duration ??2023:?4:10 ??03/30/2023:?4:01 ??03/28/2023:?4:06 Missed?Treatments 0?-?last?30?days 0?-?last?60?days FLUID?ASSESSMENT EDW?(kg) ??2023:?98.8 ??03/30/2023:?98.8 ??03/28/2023:?98.8 Weight?Pre?(kg) ??2023:?101.7 ??03/30/2023:?102.4 ??03/28/2023:?103.1 Weight?Post?(kg) ??2023:?98.4 ??03/30/2023:?98.7 ??03/28/2023:?99.8 PWV?(kg) ??2023:?-0.4 ??03/30/2023:?-0.1 ??03/28/2023:?1.0 UF?Rate?(mL/kg/hr) ??2023:?8 ??03/30/2023:?9.3 ??03/28/2023:?8.1 ADEQUACY?ASSESSMENT spKt/V,?URR ??03/07/2023:?1.79,?78.0 ??01/31/2023:?1.71,?76.0 ??01/03/2023:?1.63,?75.0 ACCESS?ASSESSMENT ??Access?Type:?AVFistula ??Access?SubType:?Standard ??Access?Status:?Active?(In?Use)?-?09/14/2017 ??Access?Location:?Left?Forearm ??Created:?04/13/2017 Flow ??03/09/2023:?958 ??01/05/2023:?835 ??12/08/2022:?1039 ANEMIA?ASSESSMENT HGB ??03/28/2023:?11.1 ??03/21/2023:?12.5 ??03/14/2023:?11.8 ?? Ferritin ??03/07/2023:?726.0 ??01/31/2023:?883.0 ??01/03/2023:?908.0 Mircera,?IVP?(mcg) ??02/25/2023:?75 ??02/11/2023:?75 ??01/07/2023:?75 Iron?Sucrose?(Venofer)?(mg) ??2023:?50 ??03/25/2023:?50 ??03/18/2023:?50 BMM?ASSESSMENT Calcium ??03/28/2023:?8.4 ??03/21/2023:?8.3 ??03/14/2023:?8.3 ?? PTH,?Intact ??03/07/2023:?429.0 ??01/31/2023:?576.0 ??01/03/2023:?572.0 Vitamin?D?(Calcitriol)?Oral?(mcg) ??2023:?0.75 ??03/30/2023:?0.75 ??03/28/2023:?0.75 NUTRITION?ASSESSMENT Albumin,?Potassium ??03/07/2023:?4.2,?5.2 ??01/31/2023:?4.1,?5.0 ??01/03/2023:?4.1,?5.0 ?? eNPCR ??03/07/2023:?1.21 ??01/31/2023:?0.86 ??01/03/2023:?0.94 DIAGNOSIS Chief?Complaint:?N18.6?End?stage?renal?disease Patient?data?updated?04/04/2023?at?1:21?PM Signed?By:?Lesa,?Simi,?MANAGER CLINICAL PHARMACY??on?04/04/2023?1:21:45?PM END OF DOCUMENT
--- OUTSIDE RECORDS SUMMARY | 2023-12-28 16:36 | XMS_ITS ---
Author Name Too Morgan Address [address] [place] [address] Phone [phone] Organization [facility], NA DOCUMENT DISCLAIMER Multiple document versions may exist, please be sure you review the latest version. The information in the [facility] Progress Note Document represents a providers documented clinical note containing certain health and medical information. It may not contain the complete medical history for the patient and should be independently verified. The represented time in the document is Eastern Time PROVIDER ROUNDING NOTE BASIC Patient:?SINDI?FERNANDA,?1960,?62y,?M Dialysis?Location:?[facility] Attending?Parachute Crown Sewer:?Too?Eddie Service?Date:?02/25/2023 Service?Provider:?Too?Eddie,? I?met?face?to?face?with?the?patient?today. OVERVIEW The?patient?presented?with?ESRD?on?dialysis Primary?cause?of?renal?failure:?Type?2?diabetes?mellitus&#16 0;with?diabetic?chronic?kidney?disease Comments:?Patient's?blood?pressure?was?elevated?today.?I?inc reased?his?Norvasc?to?10?mg?daily?from?5?mg?daily.?Will?continue?to?follow?this. DIALYSIS?PRESCRIPTION ??IHD?3x?Week?Start?date:?02/11/23 ??Dialyzer:?180NRe?Optiflux ??BFR:?450 ??DFR:?Manual?500 ??Potassium:?2.0 ??Sodium:?137 ??EDW:?98.5 ??Duration:?4:00 ??Calcium:?2.5 ??Bicarb:?35 ??Rx?updated?on:?02/09/2023 TREATMENT?ASSESSMENT BP?Stand?Pre ??02/23/2023:?148/69 ??02/21/2023:?191/79 ??02/18/2023:?146/54 BP?Sit?Pre ??02/23/2023:?192/91 ??02/21/2023:?191/89 ??02/18/2023:?174/78 BP?Stand?Post ??02/23/2023:?144/51 ??02/21/2023:?142/67 ??02/18/2023:?125/46 BP?Sit?Post ??02/23/2023:?181/84 ??02/21/2023:?179/90 ??02/18/2023:?105/59 Tx?Duration ??02/23/2023:?4:04 ??02/21/2023:?4:09 ??02/18/2023:?4:05 Missed?Treatments 0?-?last?30?days 0?-?last?60?days FLUID?ASSESSMENT EDW?(kg) ??02/23/2023:?98.5 ??02/21/2023:?98.5 ??02/18/2023:?98.5 Weight?Pre?(kg) ??02/23/2023:?102.4 ??02/21/2023:?102.6 ??02/18/2023:?101.8 Weight?Post?(kg) ??02/23/2023:?98.7 ??02/21/2023:?99.6 ??02/18/2023:?98.6 PWV?(kg) ??02/23/2023:?0.2 ??02/21/2023:?1.1 ??02/18/2023:?0.1 UF?Rate?(mL/kg/hr) ??02/23/2023:?9.2 ??02/21/2023:?7.3 ??02/18/2023:?7.9 ADEQUACY?ASSESSMENT spKt/V,?URR ??01/31/2023:?1.71,?76.0 ??01/03/2023:?1.63,?75.0 ??12/06/2022:?1.44,?71.0 ACCESS?ASSESSMENT ??Access?Type:?AVFistula ??Access?SubType:?Standard ??Access?Status:?Active?(In?Use)?-?09/14/2017 ??Access?Location:?Left?Forearm ??Created:?04/13/2017 Flow ??01/05/2023:?835 ??12/08/2022:?1039 ??09/02/2022:?903 ANEMIA?ASSESSMENT HGB ??02/21/2023:?11.1 ??02/14/2023:?10.4 ??02/07/2023:?10.0 ?? Ferritin ??01/31/2023:?883.0 ??01/03/2023:?908.0 ??12/06/2022:?871.0 Mircera,?IVP?(mcg) ??02/11/2023:?75 ??01/07/2023:?75 ??12/10/2022:?75 Iron?Sucrose?(Venofer)?(mg) ??02/18/2023:?50 ??02/11/2023:?50 ??02/04/2023:?50 BMM?ASSESSMENT Calcium ??02/21/2023:?8.6 ??02/14/2023:?8.4 ??02/07/2023:?8.4 ?? PTH,?Intact ??01/31/2023:?576.0 ??01/03/2023:?572.0 ??12/06/2022:?565.0 Vitamin?D?(Calcitriol)?Oral?(mcg) ??02/23/2023:?0.75 ??02/21/2023:?0.75 ??02/18/2023:?0.75 NUTRITION?ASSESSMENT Albumin,?Potassium ??01/31/2023:?4.1,?5.0 ??01/03/2023:?4.1,?5.0 ??12/06/2022:?4.1,?4.3 ?? eNPCR ??01/31/2023:?0.86 ??01/03/2023:?0.94 ??12/06/2022:?1.05 Patient?data?updated?02/25/2023?at?9:41?AM Signed?By:?Eddie,?Too,???on?02/25/2023?9:41:36?AM END OF DOCUMENT
--- OUTSIDE RECORDS SUMMARY | 2023-12-28 16:36 | XMS_ITS | Encounter Summary ---
[place] [address] Care Team Providers Care Tufting Machine Operator Single Needle Name Role Phone Jarad Keller DNP Primary Care Provider [phone] Encounter Details Date Type Department Care Team (Late st Contact Info) Description 11/14/2020 Telephone [place] [address] Tracie Wild Social History Tobacco Use Types Packs/Day Years [...] on filedocumented in this encounter Care Teams Tufting Machine Operator Single Needle Relationship Specialty Start Date End Date Jarad Keller DNP PCP - General Family Medicine 06/05/18 02/09/21 documented as of this encounter
--- OUTSIDE RECORDS SUMMARY | 2023-12-28 16:36 | XMS_ITS | Encounter Summary ---
[place] [address] Care Team Providers Care Partnership Development Manager Name Role Phone Kimani Leger MD Primary Care Provider [phone] Encounter Details Date Type Department Care Team (Late st Contact Info) Description 09/20/2023 7:15 PM EDT Ancillary Procedure [place] [address] Kimani Leger MD [facility] [place] [address] Social History Tobacco Use Types Packs/Day Years [...] Procedure Name Priority Date/Time Associated Diagnosis Comments FILM LIBRARY STORAGE ONLY DX CHEST Routine 09/20/2023 7:14 PM EDT documented in this encounter Results * Film Library- Storage Only DX Chest (09/20/2023 7:14 PM EDT) Narrative TROY - 09/20/2023 7:14 PM EDT This exam is auto-finalizing. It's purpose is for storage only. Kimani Leger MD IM FILM LIBRARY ORD ERABLES Performing Organization Address City/State/[facility] Co de Phone Number [place], [place] documented in this encounter Visit Diagnoses Not on filedocumented in this encounter Care Teams Partnership Development Manager Relationship Specialty Start Date End Date Kimani Leger MD [address] [place] [address] [address] [place] [address] PCP - General Family Medicine 02/10/21 documented as of this encounter
--- OUTSIDE RECORDS SUMMARY | 2023-12-28 16:36 | XMS_ITS ---
Author Name Evonne, Clinic Address [address] [place] [id number] Phone [phone] [facility] e, NA DOCUMENT DISCLAIMER Multiple document versions may exist, please be sure you review the latest version. The information in the [facility] Department Continuity of Care Document represents a summary of certain health and medical information. It may not contain the complete medical history for the patient and should be independently verified. The represented time in the document is Eastern Time. PROBLEMS Problem Code Status Onset Date Hyperkalemia E87.5 Active September 21, 2023 Diarrhea, unspecified R19.7 Active August 03, 2023 Bacteremia R78.81 Active August 19, 2022 Unspecified open wound, unsp ecified foot, initial encounter S91.309A Active August 18, 2022 Nausea R11.0 Active July 15, 2022 Disorder of bone, unspecified M89.9 Active May 14, 2022 Hypotension, unspecified I95.9 Active Apr Dependence on renal dialysis Z99.2 Active March 17, 2022 Shortness of breath R06.02 Active March 17, 2022 Allergy, unspecified, initial encounter T78.40XA A ctive March 17, 2022 Anaphylactic shock, unspecified, initial encounter T78 .2XXA Active March 17, 2022 Other specified symptoms and signs involving the circulatory and respiratory systems R09.89 Active Isidro 2021 Moderate protein-calorie malnutrition E44.0 Act fadumo November 21, 2018 Cellulitis of left lower limb L03.116 Active October 16, 2018 Pain, unspecified R52 Active April 012017 Essential (primary) hypertension I10 Active March 29, 2018 Secondary hyperparathyroidism of renal origin N25.81 Active March 29, 2018 Iron deficiency anemia, unspecified D50.9 Activ e March 29, 2018 Anemia in chronic kidney disease D63.1 Active March 29, 2018 Coagulation defect, unspecified D68.9 Active March 29, 2018 Encounter for immunization Z23 Active N ovember 2017 Encounter for screening for respiratory tuberculosis Z11.1 Active March 29, 2018 Pure hypercholesterolemia, unspecified E78.00 Ac tive March 29, 2018 End stage renal disease N18.6 Active Edwin lucero 2017 Type 2 diabetes mellitus wit h diabetic chronic kidney disease E11.22 Active March 29, 2018 ALLERGIES AND ADVERSE REACTIONS No Known Allergies SOCIAL HISTORY Tobacco Use Status Tobacco Type Never smoker - Caregiver Characteristics Need Level ADL Type Relationship of Caregiver Requires some assistance 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 [facility] health services Characteristics of Home environment Housing Status Patient Resides With and Son MEDICATIONS Prescribed Medications for Dialysis Treatments Medication Instructions Dosage Route Start Date End Date Stat us Heparin Sodium (Porcine) 1,000 Units/mL Systemic Bolus, Every Treatment, Total treatment minutes 240 8000 units Intravenous - push September 23, 2023 September 21, 2024 Active Mircera During Dialysis, Every 2 weeks 150 mcg Intravenous - push December 02, 2023 November 30, 2024 Active Vitamin D (Calcitriol) Oral Every Treatment 0.75 mcg Oral December 29, 2022 December 28, 2023 Active Home Medications Medication Instructions Dosage Route Start Date End Date Status Acetaminophen Extra Strength 500 mg Take by mouth every six hours as needed for pain 2 tablet ORAL September 19, 2017 Active aspirin 325 mg Take by mouth once a day as directed 1/2 tablet ORAL September 02, 2022 Active atorvastatin 40 mg Take by mouth once a day 1 tablet ORAL June 10, 2022 Active Basaglar KwikPen U-100 Insulin 100 unit/mL (3 mL) Inject SUBCUTANEOUS April 11, 2023 Active Breo Ellipta 100-25 mcg/dose INHALATION September 02, 2022 Active gabapentin 300 mg Take by mouth twice a day as directed 1 capsule ORAL March 16, 2023 Active Norvasc 5 mg Take by mouth once a day 1 tablet ORAL January 17, 2023 Active Novolog U-100 Insulin aspart 100 unit/mL Inject subcutaneously as directed 2 unit SUBCUTANEOUS September 19, 2017 Active Renal Caps 1 mg by mouth once a day 1 capsule ORAL August 12, 2022 Active Renvela 800 mg Take by mouth three times a day with meals 3 tablet ORAL April 13, 2023 Active sertraline 50 mg Take by mouth once a day 1 tablet ORAL February 18, 2017 Active tamsulosin 0.4 mg by mouth every night 1 capsule ORAL August 12, 2022 Active VITAL SIGNS Post-Treatment Vital Signs Vital Sign Value Date / Time Blood Pressure-sitting 142/62 mmHg November 07:02 AM Blood Pressure-standing 146/53 mmHg December 012023 07:02 AM Heart Rate 82 beats per minute December 27 07:02 AM Respiratory Rate 14 breaths per minute November 07:02 AM Temperature 98.2 deg. F December 28, 2023 07:02 AM Weight Vital Sign Value Date / Time Estimated Dry Weight 100 kg November 13 11:59 PM Pre-Dialysis 104.00 kg December 28, 2023 07:02 AM Post-Dialysis 100.80 kg December 28, 2023 07:02 AM Other Other Value Date / Time Height 163 cm July 01, 2022 2:00 AM Body Mass Index 37.64 kg/m2 November 28, 2023 09 :25 AM HEALTH CONCERNS Tuberculosis Testing TST Date Administered TST Date Read TST Result 04/04/2018 04/06/2018 Negative (<5) mm LAB RESULTS Hematology Result Type Result Value Relevant Referen ce Range Interpretation Date WBC (No Diff) 6.37 1000/mcL 4.80 - 10.80 1000/mcL - July 04, 2023 Neutrophils 68.6 % 40.0 - 75.0 % - July 04, 2023 Platelets 150 1000/mcL 130 - 400 1000/mcL - Isidro h 2023 UIBC/TIBC 61 mcg/dL 155 - 355 mcg/dL Low June TIBC (Calc) 226 mcg/dL 185 - 515 mcg/dL - June Ferritin 1234 ng/mL 22 - 322 ng/mL High July 04, 2023 Transferrin Sat. (Calc) 73 % 20 - 55 % High July 04, 2023 WBC (No Diff) 5.23 1000/mcL 4.80 - 10.80 1000/mcL - August 01, 2023 Transferrin Sat. (Calc) 52 % 20 - 55 % - August 01, 2023 Ferritin 1221 ng/mL 22 - 322 ng/mL High August 01, 2023 Platelets 154 1000/mcL 130 - 400 1000/mcL - Apri l 2023 UIBC/TIBC 106 mcg/dL 155 - 355 mcg/dL Low July TIBC (Calc) 221 mcg/dL 185 - 515 mcg/dL - July Neutrophils 65.1 % 40.0 - 75.0 % - August 01, 2023 Neutrophils 68.5 % 40.0 - 75.0 % - September 04 WBC (No Diff) 6.19 1000/mcL 4.80 - 10.80 1000/mcL - September 05, 2023 Platelets 120 1000/mcL 130 - 400 1000/mcL Low September 05, 2023 UIBC/TIBC 155 mcg/dL 155 - 355 mcg/dL - September 05, 2023 TIBC (Calc) 198 mcg/dL 185 - 515 mcg/dL - September 05, 2023 Transferrin Sat. (Calc) 22 % 20 - 55 % - September 05, 2023 Ferritin 732 ng/mL 22 - 322 ng/mL High September 04 WBC (No Diff) 7.44 1000/mcL 4.80 - 10.80 1000/mcL - October 03, 2023 ELROY 2.2 % 0.0 - 4.0 % - October 03, 2023 Basophils 0.6 % 0.0 - 1.5 % - October 03, 2023 Eosinophil 4.7 % 0.0 - 7.0 % - October 03, 2023 MCH 30.8 pg 27.0 - 31.0 pg - October 02, 024 RDW 15.5 % 11.5 - 14.5 % High October 02 MCHC 32.2 g/dL 30.0 - 36.0 g/dL - October 03, 2023 Monocytes 5.3 % 3.0 - 10.0 % - October 02 Lymphocytes 13.0 % 19.0 - 48.0 % Low October 02 024 Neutrophils 74.3 % 40.0 - 75.0 % - October 02 Platelets 121 1000/mcL 130 - 400 1000/mcL Low October 03, 2023 Hemoglobin x 3 30.9 % 42.0 - 54.0 % Low September Hemoglobin x 3 31.2 % 42.0 - 54.0 % Low September Iron 105 mcg/dL 45 - 160 mcg/dL - October 10, 2023 Transferrin Sat. (Calc) 48 % 20 - 55 % - October 10, 2023 TIBC (Calc) 219 mcg/dL 185 - 515 mcg/dL - September UIBC/TIBC 114 mcg/dL 155 - 355 mcg/dL Low October 10, 2023 Ferritin 1162 ng/mL 22 - 322 ng/mL High October 09 Hemoglobin x 3 30.0 % 42.0 - 54.0 % Low September Hemoglobin x 3 27.6 % 42.0 - 54.0 % Low September Hemoglobin x 3 27.3 % 42.0 - 54.0 % Low October Platelets 124 1000/mcL 130 - 400 1000/mcL Low October 31, 2023 Neutrophils 67.4 % 40.0 - 75.0 % - October 30 Monocytes 5.3 % 3.0 - 10.0 % - October 30 Lymphocytes 14.0 % 19.0 - 48.0 % Low October 30 Eosinophil 8.5 % 0.0 - 7.0 % High October 31, 2023 ELROY 1.6 % 0.0 - 4.0 % - October 31, 2023 Basophils 3.2 % 0.0 - 1.5 % High October 31, 2023 MCHC 32.7 g/dL 30.0 - 36.0 g/dL - October 31, 2023 MCH 29.9 pg 27.0 - 31.0 pg - October 30 RDW 15.8 % 11.5 - 14.5 % High October 30 WBC (No Diff) 6.79 1000/mcL 4.80 - 10.80 1000/mcL - October 31, 2023 Iron 92 mcg/dL 45 - 160 mcg/dL - October 31, 2023 UIBC/TIBC 157 mcg/dL 155 - 355 mcg/dL - October 31, 2023 TIBC (Calc) 249 mcg/dL 185 - 515 mcg/dL - October Transferrin Sat. (Calc) 37 % 20 - 55 % - October 31, 2023 Ferritin 1275 ng/mL 22 - 322 ng/mL High October 30 Hemoglobin x 3 29.1 % 42.0 - 54.0 % Low October Hemoglobin x 3 29.4 % 42.0 - 54.0 % Low October Hemoglobin x 3 29.1 % 42.0 - 54.0 % Low October HGB 9.6 g/dL 14.0 - 18.0 g/dL Low November 28, 2023 Hemoglobin x 3 28.8 % 42.0 - 54.0 % Low October UIBC/TIBC 141 mcg/dL 155 - 355 mcg/dL Low November Iron 105 mcg/dL 45 - 160 mcg/dL - November Transferrin Sat. (Calc) 43 % 20 - 55 % - December 05, 2023 TIBC (Calc) 246 mcg/dL 185 - 515 mcg/dL - December 05, 2023 Ferritin 1057 ng/mL 22 - 322 ng/mL High December 05, 2023 Hemoglobin x 3 29.7 % 42.0 - 54.0 % Low December 05, 2023 Platelets 134 1000/mcL 130 - 400 1000/mcL - 2023 RDW 16.9 % 11.5 - 14.5 % High December 05, 2023 HGB 9.9 g/dL 14.0 - 18.0 g/dL Low November MCH 31.0 pg 27.0 - 31.0 pg - December 05, 2023 MCHC 31.4 g/dL 30.0 - 36.0 g/dL - November HCT 31.5 % 42.0 - 52.0 % Low December 05, 2023 WBC (No Diff) 5.93 1000/mcL 4.80 - 10.80 1000/mcL - December 05, 2023 RBC 3.19 mill/mcL 4.70 - 6.10 mill/mcL Low December 05, 2023 ELROY 2.4 % 0.0 - 4.0 % - December 04 Eosinophil 9.4 % 0.0 - 7.0 % High December 04 Basophils 1.2 % 0.0 - 1.5 % - December 04 Lymphocytes 15.8 % 19.0 - 48.0 % Low December 05, 2023 Monocytes 6.7 % 3.0 - 10.0 % - December 04 024 Neutrophils 64.4 % 40.0 - 75.0 % - December 05, 2023 Hemoglobin x 3 30.6 % 42.0 - 54.0 % Low December 12, 2023 HGB 10.2 g/dL 14.0 - 18.0 g/dL November 302023 HGB 10.7 g/dL 14.0 - 18.0 g/dL Low November 302023 Hemoglobin x 3 32.1 % 42.0 - 54.0 % Low December 19, 2023 HGB 11.1 g/dL 14.0 - 18.0 g/dL Low December 012023 Hemoglobin x 3 33.3 % 42.0 - 54.0 % Low December 26, 2023 Metabolic/Renal Result Type Result Value Relevant Reference Range Interpre tation Date BUN, Post 15 mg/dL 6 - 19 mg/dL - October 02 URR, Calc 79 % 65 - 80 % - October 03, 2023 BUN 73 mg/dL 6 - 19 mg/dL High October 02 Bicarbonate 22 mEq/L 22 - 29 mEq/L - October 09, 2 024 Chloride 98 mEq/L 96 - 108 mEq/L - October 09, 2 024 Potassium 5.8 mEq/L 3.5 - 5.1 mEq/L High October 10, 2023 Sodium 136 mEq/L 136 - 145 mEq/L - October 10, 2023 BUN 89 mg/dL 6 - 19 mg/dL High October 30 Sodium 139 mEq/L 136 - 145 mEq/L - October 31, 2023 Potassium 4.9 mEq/L 3.5 - 5.1 mEq/L - October 31, 2023 Bicarbonate 22 mEq/L 22 - 29 mEq/L - October 30, 2 024 URR, Calc 97 % 65 - 80 % High October 31, 2023 BUN, Post 3 mg/dL 6 - 19 mg/dL Low October 30 URR, Calc 78 % 65 - 80 % - December 04 BUN, Post 13 mg/dL 6 - 19 mg/dL - December 04, 2 024 Sodium 137 mEq/L 136 - 145 mEq/L - November BUN 59 mg/dL 6 - 19 mg/dL High December 04, 024 Bicarbonate 24 mEq/L 22 - 29 mEq/L - December 05, 2023 Potassium 5.0 mEq/L 3.5 - 5.1 mEq/L - November Hemoglobin A1c 8.0 % 4.8 - 5.9 % High November HD Adequacy Result Type Result Value Relevant Referen ce Range Interpretation Date Krt/V 0.00 No Reference Ran ge Provided - July 04, 2023 Krt/V 0.00 No Reference Ran ge Provided - August 01, 2023 Krt/V 0.00 No Reference Ran ge Provided - September 05, 2023 spKt/V (Daugirdas II) 1.88 No Reference Range Provided - October 03, 2023 wstdKt/V without residual 2.6 No Reference Range Provided - October 03, 2023 eKt/V ([place]) 1.64 No Reference Range Provided - October 03, 2023 wstdKt/V 2.6 No Reference Ran ge Provided - October 03, 2023 Krt/V 0.00 No Reference Ran ge Provided - October 03, 2023 spKt/V Gotch 1.91 No Reference Ran ge Provided - October 03, 2023 wstdKt/V, residual 0.0 No Reference Range Provided - October 03, 2023 wstdKt/V 3.2 No Reference Ran ge Provided - October 31, 2023 wstdKt/V without residual 3.2 No Reference Range Provided - October 31, 2023 spKt/V Gotch 4.82 No Reference Ran ge Provided - October 31, 2023 wstdKt/V, residual 0.0 No Reference Range Provided - October 31, 2023 spKt/V (Daugirdas II) 7.46 No Reference Range Provided - October 31, 2023 eKt/V ([place]) 6.54 No Reference Range Provided - October 31, 2023 Krt/V 0.00 No Reference Ran ge Provided - October 31, 2023 spKt/V Gotch 1.82 No Reference Ran ge Provided - December 05, 2023 wstdKt/V without residual 2.6 No Reference Range Provided - December 05, 2023 Krt/V 0.00 No Reference Ran ge Provided - December 05, 2023 spKt/V (Daugirdas II) 1.80 No Reference Range Provided - December 05, 2023 eKt/V ([place]) 1.57 No Reference Range Provided - December 05, 2023 wstdKt/V, residual 0.0 No Reference Range Provided - December 05, 2023 wstdKt/V 2.6 No Reference Ran ge Provided - December 05, 2023 Bone/Mineral Result Type Result Value Relevant Referen ce Range Interpretation Date Vitamin D 25 Hydroxy 12.4 ng/mL 30.0 - 100.0 ng/mL Low January 03, 2023 Magnesium 2.1 mg/dL 1.6 - 2.6 mg/dL - January 03, 2023 Magnesium 2.2 mg/dL 1.6 - 2.6 mg/dL - January Magnesium 2.8 mg/dL 1.6 - 2.6 mg/dL High March 07, 2023 Magnesium 2.5 mg/dL 1.6 - 2.6 mg/dL - April 04, 2023 Vitamin D 25 Hydroxy 25.1 ng/mL 30.0 - 100.0 ng/mL Low April 04, 2023 Magnesium 2.7 mg/dL 1.6 - 2.6 mg/dL High May Magnesium 2.8 mg/dL 1.6 - 2.6 mg/dL High June 06, 2023 PTH-Intact, Plasma 440 pg/mL 16 - 80 pg/mL High Jun Magnesium 2.6 mg/dL 1.6 - 2.6 mg/dL - July 04, 2023 Vitamin D 25 Hydroxy 10.3 ng/mL 30.0 - 100.0 ng/mL Low July 04, 2023 Magnesium 2.6 mg/dL 1.6 - 2.6 mg/dL - August 01, 2023 PTH-Intact, Plasma 411 pg/mL 16 - 80 pg/mL High Jul PTH-Intact, Plasma 512 pg/mL 16 - 80 pg/mL High September 05, 2023 Magnesium 2.8 mg/dL 1.6 - 2.6 mg/dL High September 04, Vitamin D 25 Hydroxy 14.8 ng/mL 30.0 - 100.0 ng/mL Low October 03, 2023 PTH-Intact, Plasma 459 pg/mL 16 - 80 pg/mL High Sep Calcium, Total 8.6 mg/dL 8.4 - 10.2 mg/dL - October 10, 2023 Alkaline Phosphatase 74 U/L 40 - 129 U/L - 2023 Ca x P Product 45 0 - 54 - October 09 024 Phosphorus 5.2 mg/dL 2.6 - 4.5 mg/dL High October 10, 2023 Calcium, Total 8.4 mg/dL 8.4 - 10.2 mg/dL - October 17, 2023 Calcium, Total 8.5 mg/dL 8.4 - 10.2 mg/dL - October 24, 2023 Calcium, Total 8.5 mg/dL 8.4 - 10.2 mg/dL - October 31, 2023 Phosphorus 7.3 mg/dL 2.6 - 4.5 mg/dL High October 31, 2023 Ca x P Product 62 0 - 54 High October 30, 024 PTH-Intact, Plasma 449 pg/mL 16 - 80 pg/mL High Oct Corrected Ca x P Product 61 0 - 54 High October 31, 2023 Magnesium 2.8 mg/dL 1.6 - 2.6 mg/dL High October 31, 2023 Calcium, Total 8.8 mg/dL 8.4 - 10.2 mg/dL - November 07, 2023 Calcium, Total 8.5 mg/dL 8.4 - 10.2 mg/dL - November 14, 2023 Calcium, Total 8.3 mg/dL 8.4 - 10.2 mg/dL Low November 21, 2023 Calcium, Total 8.4 mg/dL 8.4 - 10.2 mg/dL - November 28, 2023 Magnesium 2.7 mg/dL 1.6 - 2.6 mg/dL High November Corrected Ca x P Product 44 0 - 54 - December 05, 2023 PTH-Intact, Plasma 410 pg/mL 16 - 80 pg/mL High Nov Ca x P Product 45 0 - 54 - December 05, 2023 Phosphorus 5.1 mg/dL 2.6 - 4.5 mg/dL High November Calcium, Total 8.9 mg/dL 8.4 - 10.2 mg/dL - 2023 Calcium, Total 8.5 mg/dL 8.4 - 10.2 mg/dL - 2023 Calcium, Total 8.2 mg/dL 8.4 - 10.2 mg/dL Low 2023 Calcium, Total 8.5 mg/dL 8.4 - 10.2 mg/dL - st 2023 Liver/Nutrition Result Type Result Value Relevant Reference Range Interpre tation Date eNPCR 1.06 No Reference Range Provided - October 03, 2023 Albumin (BCG) 3.9 g/dL 3.5 - 5.2 g/dL - September Glucose 272 mg/dL 70 - 100 mg/dL High October 09, 2 024 Albumin (BCG) 4.3 g/dL 3.5 - 5.2 g/dL - October eNPCR 1.62 No Reference Range Provided - October 31, 2023 Albumin (BCG) 4.2 g/dL 3.5 - 5.2 g/dL - December 05, 2023 eNPCR 0.88 No Reference Range Provided - December 05, 2023 Trace Elements Result Type Result Value Relevant Reference Range Interpre tation Date Aluminum < 5 mcg/L 0 - 10 mcg/L - April 04, 2023 Aluminum < 5 mcg/L 0 - 10 mcg/L - October 02 Infectious Diseases Result Type Result Value Relevant Referen ce Range Interpretation Date Hep B Surface Ab (anti-HBs) 15 mIU/mL No Reference Range Provided - October 03, 2023 Hep B Surface Ag (HBsAg) Negative No Reference Range Provided - December 05, 2023 DIALYSIS PRESCRIPTION Conventional Hemodialysis Data Element Value Order Date/Time November 14, 2023 Frequency 3X Week Treatment Days MonWedFri Dialyzer [id number] Optiflux Treatment Time (Total Minutes) 240 min Blood Flow Rate (mL/min) 450 mL/min Dialysate Flow Rate Manual 800 Estimated Dry Weight 100 kg Dialysate Concentrate 2.0 K, 2.5 Ca, 1.0 Mg, 100 Dextrose (G2251) Sodium (mEq/L) 137 mEq/L Bicarb Machine Setting (mEq/L) 35 mEq/L Dialysis Access Hemodialysis-AV Fist davina-Standard, Left Forearm, Radial Artery to Cephalic Vein Access Placed on April 13, 2017 Arterial Needle Size 15g1 Venous Needle Size 15g1 IMMUNIZATIONS Vaccine Date Dose Route Status Flu Vaccine - Flublok Quadrivalent February 18, 2023 0.5 mL Intramuscular Completed PNEUMOVAX April 15, 2022 0.5 mL Intramuscular Co mpleted Moderna COVID-19 Vaccine, Booster March 12, 2021 0.25 m L Intramuscular Completed [id number] November 16, 2017 40.0 mcg Intramuscular Com pleted [id number] July 20, 2017 40.0 mcg Intramuscular Co mpleted [id number] June 22, 2017 40.0 mcg Intramuscular Completed [id number] May 20, 2017 40.0 mcg Intramuscular Completed TRANSPLANT WAITLIST STATUS No Information on Transplant Waitlist Status ADVANCE DIRECTIVES Directive Description Ordered By Effective Date Resuscitation status Full Code Too Morgan September 22, 2023 DIALYSIS TREATMENTS Conventional Hemodialysis Date Pre-Treatment Vitals Post-Treatment Laura ls Duration (hr) BFR (mL/min) Dialysate Dialyzer Dialysis Access Meds Admin [facility] 2023 Weight 103.50 kg Weight 100.70 kg 04:09:00 440 2.0 K, 2.5 Ca, 1.0 Mg, 100 Dextrose (G2251) 180nre Optifl ux Blood Pressure-sitting 169/60 mmHg Blood Pressure-sit ting 147/61 mmHg Blood Pressure-standing 128/40 mmHg Blood Pressure-st anding 132/68 mmHg Heart Rate 93 beats per minute Heart Rate 82 beats per minute Respiratory Rate 17 breaths per minute Respiratory Rate 16 breaths per minute Temperature 97.2 deg. F Temperature 97.7 deg. F December 26, 2023 Weight 105.00 kg Weight 101.30 kg 04:25:00 420 2.0 K, 2.5 Ca, 1.0 Mg, 100 Dextrose (G2251) 180nre Optiflux Hemodialysis-AV Fistula-Standard, Left Forearm, Radial Artery to Cephalic Vein Access Placed on April 13, 2017 Heparin Sodium (Porcine) 1,000 Units/mL Systemic; 8000units,Intravenous - push Vitamin D (Calcitriol) Oral; 0.75mcg,Oral Blood Pressure-sitting 165/72 mmHg Blood Pressure-sit ting 132/60 mmHg Blood Pressure-standing 162/73 mmHg Blood Pressure-st anding 124/61 mmHg Heart Rate 93 beats per minute Heart Rate 87 beats per minute Respiratory Rate 18 breaths per minute Respiratory Rate 16 breaths per minute Temperature 98.1 deg. F Temperature 97.0 deg. F December 28, 2023 Weight 104.00 kg Weight 100.80 kg 03:52:00 410 2.0 K, 2.5 Ca, 1.0 Mg, 100 Dextrose (G2251) 180nre Optiflux Hemodialysis-AV Fistula-Standard, Left Forearm, Radial Artery to Cephalic Vein Access Placed on April 13, 2017 Heparin Sodium (Porcine) 1,000 Units/mL Systemic; 8000units,Intravenous - push Vitamin D (Calcitriol) Oral; 0.75mcg,Oral Blood Pressure-sitting 155/69 mmHg Blood Pressure-sit ting 142/62 mmHg Blood Pressure-standing 157/73 mmHg Blood Pressure-st anding 146/53 mmHg Heart Rate 96 beats per minute Heart Rate 82 beats per minute Respiratory Rate 16 breaths per minute Respiratory Rate 14 breaths per minute Temperature 97.4 deg. F Temperature 98.2 deg. F
--- OUTSIDE RECORDS SUMMARY | 2023-12-28 16:36 | XMS_ITS | Encounter Summary ---
[place] [address] Care Team Providers Care Commercial Management Accountant Name Role Phone Kimani Leger MD Primary Care Provider [phone] Reason for Referral * Diagnostic Test (Routine) - Closed Specialty Diagnoses / Procedures Referred By Puneet hallman Referred To Contact Radiology Diagnoses ESRD (end stage renal disease) Procedures IR Dialysis Access - AV Fistula Evaluations Simi Mcfadden APRN [facility] [place] [address] [facility] [place] [address] Referral ID Status Reason Start Date Expiration Date V isits Requested Visits Authorized [id number] Closed Specialty Service Requested 12/22/2021 06/24/2023 1 1 Encounter Details Date Type Department Care Team (Late st Contact Info) Description 12/22/2021 Orders Only [place] [address] Simi Mcfadden APRN [facility] [place] [address] ESRD (end stage renal disease) Social History Tobacco Use Types Packs/Day Years [...] on file documented as of this encounter Results * IR Dialysis Access - AV Fistula Evaluations (01/25/2022 9:10 AM EDT) Anatomical Region Laterality Modality Abdomen X-Ray Angiograph y Impressions 01/27/2022 7:26 AM EDT Left upper extremity radiocephalic fistulagram demonstrates recurrent moderate-severe focal stenosis of the juxta anastomotic cephalic vein 2.5 cm central to the AV anastomosis, resolved with 7 mm GERENTOLOGICAL PHYSIOTHERAPIST. Additional 5 mm GERENTOLOGICAL PHYSIOTHERAPIST of the AV anastomosis was performed. Plan: The fistula can be used for dialysis immediately. PROCEDURE SUMMARY: - Access of dialysis fistula with ultrasound guidance - Dialysis fistulagram - Additional procedure(s): None PROCEDURE DETAILS: Pre-procedure Consent: Informed consent for the procedure including risks, benefits and alternatives was obtained and time-out was performed prior to the procedure. Preparation: The site was prepared and draped using maximal sterile barrier technique including cutaneous antisepsis. Anesthesia/sedation Level of anesthesia/sedation: Monitored anesthesia care Anesthesia/sedation administered by: Anesthesiology Total intra-service sedation time (minutes): See electronic medical record. Initial dialysis fistula evaluation Dialysis fistula side: Left Dialysis fistula type: Radio-cephalic (Brescia-Radha) Initial fistula palpation: Palpable thrill Access Local anesthesia was administered. The fistula was sonographically evaluated and judged to be patent. Real time ultrasound was used to visualize needle entry into the fistula and a permanent image was stored. A 5 Hebrew sheath was placed. Access technique: Micropuncture set with 21 gauge needle Access direction: Toward anastomosis Dialysis fistulagram Initial fistulagram was performed. Findings: ??Stenosis approximately 1 cm in length of the subclavian vein 2.5 cm central to the arteriovenous anastomosis. Additional mild to moderate focal stenosis of the juxta anastomotic region was also noted. Mild less than 50% 1 cm juxta anastomotic arterial narrowing. The outflow peripheral and central venous structures are widely patent. Angioplasty Angioplasty of the focal stenosis 2.5 cm central to the arteriovenous anastomosis was performed. Angioplasty balloon(s): 7 mm x 40 mm [place] Angioplasty of the juxta-anastomotic location was performed. Angioplasty balloon(s): 5 mm x 40 mm [place] Final fistulagram Final fistulagram was performed. Findings: Resolution of focal stenosis Final fistula palpation: Palpable thrill, improved compared to preprocedure Closure The sheath was removed and hemostasis was achieved with manual compression. A sterile dressing was applied. Contrast Contrast agent: Omnipaque 350 Contrast volume (mL): 50 Radiation Dose Fluoroscopy time (minutes): 3.5 Reference air kerma (mGy): 36.1 Kerma area product (Gy-cm2): 11.9 Additional Details Additional description of procedure: None Equipment details: None Specimens removed: None Estimated blood loss (mL): Less than 10 Standardized report: [email or web address]ions_v3 Attestation Procedure/teaching attestation: I, Roderick Castillo MD, , attest that I was present for the entire procedure. Moderate Sedation attestation: I was present during the intraservice time as documented by the IR nurse. I have personally reviewed the image(s) and the resident's interpretation and agree with the findings, Roderick Castillo MD at 01/27/2022 7:26 AM Thank you for letting us participate in the care of this patient. ??If you are a health care provider and have any questions regarding this report, please contact the number below. ??For patients who have questions please contact the health managed care coordinator that requested your imaging first. ? Electronically signed by: Roderick Castillo MD, [facility] ([phone]), at 01/27/2022 7:26 AM Narrative 01/27/2022 7:26 AM EDT PROCEDURE: Dialysis fistulagram and interventions Procedural Personnel Attending physician(s): Roderick Castillo MD Fellow physician(s): None Resident physician(s): Jacinto Jean DO, Mark Johnson, MD Advanced practice provider(s): None Pre-procedure diagnosis: Left upper extremity radiocephalic AV fistula, decreasing access flows Post-procedure diagnosis: Same Indication: Poor flow rates at dialysis Additional clinical history: None Complications: No immediate complications. Procedure Note Roderick Castillo MD - 01/27/2022 PROCEDURE: Dialysis fistulagram and interventions Procedural Personnel Attending physician(s): Roderick Castillo MD Fellow physician(s): None Resident physician(s): Jacinto Jean DO, Mark Johnson, MD Advanced practice provider(s): None Pre-procedure diagnosis: Left upper extremity radiocephalic AV fistula, decreasing access flows Post-procedure diagnosis: Same Indication: Poor flow rates at dialysis Additional clinical history: None Complications: No immediate complications. IMPRESSION Left upper extremity radiocephalic fistulagram demonstrates recurrent moderate-severe focal stenosis of the juxta anastomotic cephalic vein 2.5cm central to the AV anastomosis, resolved with 7 mm GERENTOLOGICAL PHYSIOTHERAPIST. Additional 5 mm PTAof the AV anastomosis was performed. Plan: The fistula can be used for dialysis immediately. PROCEDURE SUMMARY: - Access of dialysis fistula with ultrasound guidance - Dialysis fistulagram - Additional procedure(s): None PROCEDURE DETAILS: Pre-procedure Consent: Informed consent for the procedure including risks, benefitsand alternatives was obtained and time-out was performed prior to theprocedure. Preparation: The site was prepared and draped using maximal sterilebarrier technique including cutaneous antisepsis. Anesthesia/sedation Level of anesthesia/sedation: Monitored anesthesia care Anesthesia/sedation administered by: Anesthesiology Total intra-service sedation time (minutes): See electronic medicalrecord. Initial dialysis fistula evaluation Dialysis fistula side: Left Dialysis fistula type: Radio-cephalic (Brescia-Radha) Initial fistula palpation: Palpable thrill Access Local anesthesia was administered. The fistula was sonographicallyevaluated and judged to be patent. Real time ultrasound was used to visualize needleentry into the fistula and a permanent image was stored. A 5 Hebrew sheath wasplaced. Access technique: Micropuncture set with 21 gauge needle Access direction: Toward anastomosis Dialysis fistulagram Initial fistulagram was performed. Findings: Stenosis approximately 1 cm in length of the subclavian vein2.5 cm central to the arteriovenous anastomosis. Additional mild to moderatefocal stenosis of the juxta anastomotic region was also noted. Mild less than50% 1 cm juxta anastomotic arterial narrowing. The outflow peripheral and centralvenous structures are widely patent. Angioplasty Angioplasty of the focal stenosis 2.5 cm central to the arteriovenous anastomosis was performed. Angioplasty balloon(s): 7 mm x 40 mm [place] Angioplasty of the juxta-anastomotic location was performed. Angioplasty balloon(s): 5 mm x 40 mm [place] Final fistulagram Final fistulagram was performed. Findings: Resolution of focal stenosis Final fistula palpation: Palpable thrill, improved compared topreprocedure Closure The sheath was removed and hemostasis was achieved with manualcompression. A sterile dressing was applied. Contrast Contrast agent: Omnipaque 350 Contrast volume (mL): 50 Radiation Dose Fluoroscopy time (minutes): 3.5 Reference air kerma (mGy): 36.1 Kerma area product (Gy-cm2): 11.9 Additional Details Additional description of procedure: None Equipment details: None Specimens removed: None Estimated blood loss (mL): Less than 10 Standardized report: SIR_DialysisFistulaInterventions_v3 Attestation Procedure/teaching attestation: Luis, Roderick Castillo MD, , attest that Iwas present for the entire procedure. Moderate Sedation attestation: I was present during the intraservice timeas documented by the IR nurse. I have personally reviewed the image(s) and the resident's interpretationand agree with the findings, Roderick Castillo MD at 01/27/2022 7:26 AM Thank you for letting us participate in the care of this patient. If youare a health care provider and have any questions regarding this report,please contact the number below. For patients who have questions please contactthe health managed care coordinator that requested your imaging first. Electronically signed by: Roderick Castillo MD, [facility]([phone]), at 01/27/2022 7:26 AM Simi Mcfadden TOOTH CUTTER CONTACT WHEEL IMG IR ORDERABLES documented in this encounter Visit Diagnoses Diagnosis ESRD (end stage renal disease) End stage renal disease ESRD (end stage renal disease) End stage renal disease documented in this encounter Care Teams Commercial Management Accountant Relationship Specialty Start Date End Date Kimani Leger MD [address] [place] [address] PCP - General Family Medicine 02/10/21 documented as of this encounter
--- OUTSIDE RECORDS SUMMARY | 2023-12-28 16:36 | XMS_ITS | Encounter Summary ---
[place] [address] Care Team Providers Care Highway Worker Name Role Phone Kimani Leger MD Primary Care Provider [phone] Reason for Visit * Reason Onset Date Comments Follow-up 04/12/2023 Encounter Details Date Type Department Care Team (Late st Contact Info) Description 04/12/2023 Telephone [place] [address] Harmeet Arvizu MD [facility] [place] [address] Follow-up Social History Tobacco Use Types Packs/Day Years Used Date Smoking Tobacco: Former Smokeless Tobacco: Never Comments:quit in his 20's Alcohol Use Standard Drinks/Week Comments No 0 (1 standard drink = 0.6 oz pur e alcohol) Sex and Gender Information Value Date Recorded Sex Assigned at Not on file Gender Identity Not on file Sexual Orientation Not on file documented as of this encounter Miscellaneous Notes * Telephone Encounter - Shanika Minaya - 04/19/2023 12:57 PM EST Made second call, still no answer and no voicemail, I will send a letter, see below * Telephone Encounter - Shanika Minaya - 04/12/2023 11:16 AM EST Called to schedule a follow up with [facility], no answer and no voicemail Try for within 6 months to re-establish care. (First open green follow up or same day in the new year DFE/OCT/Fundus photos. Hx of stable PDR. Monocular. documented in this encounter Plan of Treatment Not on file documented as of this encounter Visit Diagnoses Not on filedocumented in this encounter Care Teams Highway Worker Relationship Specialty Start Date End Date Kimani Leger MD [facility] [place] [address] PCP - General Family Medicine 02/10/21 documented as of this encounter
--- OUTSIDE RECORDS SUMMARY | 2023-12-28 16:36 | XMS_ITS | Encounter Summary ---
Author Organization [facility] [place] [address] Care Team Providers Care Velvet Cutter Name Role Phone Kimani Leger MD Primary Care Provider [phone] Reason for Visit * Reason Comments Medication Refill Encounter Details Date Type Department Care Team ([facility] st Contact Info) Description 05/31/2021 Refill [place]ph[place] [address] Too Morgan MD [facility] [place] [address] Social History Tobacco Use Types Packs/Day Years [...] on filedocumented in this encounter Care Teams Velvet Cutter Relationship Specialty Start Date End Date Kimani Leger MD [address] [place] [address] PCP - General Family Medicine 02/10/21 documented as of this encounter
--- OUTSIDE RECORDS SUMMARY | 2023-12-28 16:36 | XMS_ITS | Encounter Summary ---
[place] [address] Care Team Providers Care Coat Checker Name Role Phone Kimani Leger MD Primary Care Provider Reason for Referral * Diagnostic Test (Routine) - Closed Specialty Diagnoses / Procedures Referred By Puneet hallman Referred To Contact Radiology Diagnoses ESRD (end stage renal disease) Procedures IR Dialysis Access - AV Fistula Evaluations Simi Mcfadden APRN [facility] [place] [address] [place] [address] Referral ID Status Reason Start Date Expiration Date V isits Requested Visits Authorized [id number] Closed Specialty Service Requested 12/22/2021 06/24/2023 1 1 Reason for Visit * Diagnostic Test (Routine) - Closed Specialty Diagnoses / Procedures Referred By Puneet hallman Referred To Contact Radiology Diagnoses ESRD (end stage renal disease) Procedures IR Dialysis Access - AV Fistula Evaluations Simi Mcfadden APRN [facility] [place] [address] [facility] [place] [address] Referral ID Status Reason Start Date Expiration Date V isits Requested Visits Authorized [id number] Closed Specialty Service Requested 12/22/2021 06/24/2023 1 1 Encounter Details Date Type Department Care Team (Latest Contact Info) Description 01/25/2022 7:30 AM EDT - 01/25/2022 11:59 PM EDT Hospital [place] [address] Simi Mcfadden APRN [facility] [place] [address] ESRD (end stage renal disease) Discharge Disposition: Home Social History Tobacco Use Types Packs/Day Years Used Date Smoking Tobacco: Former Smokeless Tobacco: Never Comments:quit in his 20's Alcohol Use Standard Drinks/Week Comments No 0 (1 standard drink = 0.6 oz pur e alcohol) Sex and Gender Information Value Date Recorded Sex Assigned at Not on file Gender Identity Not on file Sexual Orientation Not on file documented as of this encounter Medications at Time of Discharge Medication Sig Dispensed Refills Start Date End Date Trulicity 0.75 mg/0.5 mL Pen Injector 06/02/2021 OneTouch Verio Flex meter Misc TEST BLOOD [...] mouth daily. 180 tablet 3 05/20/2020 02/25/2023 documented as of this encounter Progress Notes * Luis Samuels RN - 01/25/2022 11:59 PM EDT Follow up call made for AV fistula evaluation that was done on 01/25/22. Voice message was left andpatient was encouraged to call IR Department should any question or concerns arise. documented in this encounter H&P Notes * Maurice Carrero MD - 01/25/2022 6:51 AM EDT INTERVENTIONAL RADIOLOGY FOCUSED H&P: Procedure: Left upper extremity AV fistulagram Update to H&P: The patient's history and physical exam have been reviewed and completed. There has been NO interval change from that of the pre-procedural note done within the last 30 days. There is NO change in the procedural plan. Physical Exam: Cardiovascular: Regular, Normal Pulmonary: Breath sounds clear to auscultation Abdomen: Soft, nontender Vascular: LUE AVF with continuous thrill Meds: Current medications reviewed. No medications held. Labs: No new relevant labs. The planned procedure (and sedation plan if appropriate) , its benefits and risks, and alternativeswere discussed with the patient. The patient consented to the procedure. PRE-SEDATION ASSESSMENT: Sedation Plan: anesthesia History of anesthetic complications: No Current medications reviewed: Yes Allergies reviewed: Yes documented in this encounter Miscellaneous Notes * Brief Op Note - Roderick Castillo MD - 01/25/2022 9:13 AM EDT INTERVENTIONAL RADIOLOGY BRIEF PROCEDURE NOTE Patient Name: Maurice Rudolph : 1960 Case Date: 01/25/2022 Operators: Attending: Anna Resident/Fellow/Student: Magan Post-operative diagnosis/Indication: malfunction of AVF Brief description of the procedure: ?? LUE AV fistulogram ?? Balloon angioplasty of juxta-anastomotic venous stenoses Findings of the procedure: ?? Recurrent juxta-anastomotic venous stenoses resolved with angioplasty EBL: <10 mL Specimens: _N/A_ Complications: No immediate Plan/Disposition: Return to Same Day then D/c home when criteria met AV fistula ready for use FULL PROCEDURE NOTE TO FOLLOW IN IMAGE REPORT documented in this encounter Plan of Treatment Not on file documented as of this encounter Procedures Procedure Name Priority Date/Time Associated Diagnosis Comments IR DIALYSIS ACCESS - AV FISTULA EVALUATIONS Routine 01/25/2022 9:10 AM EDT ESRD (end stage renal disease) documented in this encounter Results * IR Dialysis Access - AV Fistula Evaluations (01/25/2022 9:10 AM EDT) Anatomical Region Laterality Modality Abdomen X-Ray Angiograph y Impressions 01/27/2022 7:26 AM EDT Left upper extremity radiocephalic fistulagram demonstrates recurrent moderate-severe focal stenosis of the juxta anastomotic cephalic vein 2.5 cm central to the AV anastomosis, resolved with 7 mm SURGICAL BRACE MAKER. Additional 5 mm SURGICAL BRACE MAKER of the AV anastomosis was performed. Plan: [...] a permanent image was stored. A 5 Nigerien sheath was placed. Access technique: Micropuncture set [...] Angioplasty balloon(s): 7 mm x 40 mm [place] Angioplasty of the juxta-anastomotic location was performed. Angioplasty balloon(s): 5 mm x 40 mm [place] Final fistulagram Final fistulagram was performed. Findings: [...] who have questions please contact the health healthcare administrator that requested your imaging first. ? Electronically signed by: Roderick Castillo MD, [facility] ([phone]), at 01/27/2022 7:26 AM Narrative 01/27/2022 7:26 [...] the AV anastomosis, resolved with 7 mm SURGICAL BRACE MAKER. Additional 5 mm PTAof the AV anastomosis [...] a permanent image was stored. A 5 Nigerien sheath wasplaced. Access technique: Micropuncture set with [...] Angioplasty balloon(s): 7 mm x 40 mm [place] Angioplasty of the juxta-anastomotic location was performed. Angioplasty balloon(s): 5 mm x 40 mm [place] Final fistulagram Final fistulagram was performed. Findings: [...] Attestation Procedure/teaching attestation: I, Roderick Castillo MD, MD, attest that Iwas present for the entire [...] patients who have questions please contactthe health healthcare administrator that requested your imaging first. Electronically signed by: Roderick Castillo MD, [facility]([phone]), at 01/27/2022 7:26 AM Simi Mcfadden TRADE SHOW COORDINATOR IMG IR ORDERABLES documented in this encounter Visit Diagnoses Diagnosis ESRD (end stage renal disease) End stage renal disease documented in this encounter Care Teams Coat Checker Relationship Specialty Start Date End Date Kimani Leger MD [address] [place] [address] PCP - General Family Medicine 02/10/21 documented as of this encounter
--- OUTSIDE RECORDS SUMMARY | 2023-12-28 16:36 | XMS_ITS | Encounter Summary ---
[place] [address] Care Team Providers Care Line Painting Machine Operator Name Role Phone Kimani Leger MD Primary Care Provider [phone] Encounter Details Date Type Department Care Team (Late st Contact Info) Description 01/25/2022 7:46 AM EDT [place] [address] Merlin Joyce MD [facility] [place] [address] Anesthesia Record Procedure Summary Procedure Name Responsible Anesthesiologist Anesthesia Start Time Anesthesia Stop Time FISTULAGRAM Merlin Joyce MD 01/25/22 0746 01/25/22 0929 Events Date Time Event Comment 01/25/2022 0733 0746 AN Verify 0746 Start 0746 Quick Note IR proceduralis t in meeting until 0800, hence no 0730 start. 0753 An Start Data 0757 Anesthesia Ready 0819 Procedure Start 0919 Quick Note Patient awake a nd alert. No issues. 0924 an stop data 0929 Recovery or ICU Handoff Halima ent care was transferred to the destination unit staff after review of the patient's medical history, current anesthetic/surgical status and plan, according to the Provider Handoff Checklist. 928 Stop Meds Name Total Midazolam 2 mg Propofol 60 mg Propofol INF 351.22 mg Dexmedetomidine 8 mcg Dexmedetomidine INF 19.28 mcg PHENYLephrine 400 mcg Lactated Ringers 350 mL * Agents Name O2 Air N2O O2 Auxiliary Flowmeter 1 * Blood No blood administrations on file. Lines, Drains, and Airways Type Details Placement Removal Hemodialysis AV Access Device - Single Lumen 10/20/18; 1343; fistula; forearm, left; hemodialysis 10/20/18 1343 by Chantale Jennings RN (RETIRED) Peripheral IV Line - Single Lumen 01/25/22; 0718; cephalic vein (lateral side of arm), right; [id number] catheter system; 20 gauge, 1 in length; distraction, intradermal injection; 01/25/22; 1219 01/25/22 0718 by Mimi Cole RN 01/25/22 1219 by Lee Aiken RN documented in this encounter Social History Tobacco Use Types Packs/Day Years Used Date Smoking Tobacco: Former Smokeless Tobacco: Never Comments:quit in his 20's Alcohol Use Standard Drinks/Week Comments No 0 (1 standard drink = 0.6 oz pur e alcohol) Sex and Gender Information Value Date Recorded Sex Assigned at Not on file Gender Identity Not on file Sexual Orientation Not on file documented as of this encounter OR Notes * Anesthesia Postprocedure Evaluation - Merlin Joyce MD - 01/25/2022 11:03 AM EDT Department of Anesthesiology Post-procedure Note Patient: Maurice Rudolph Procedure Summary Date: 01/25/22 Room / Location: [facility] INTERVENT[facility]AL RADIOLOGY / [facility] Anesthesia Start: 745 Anesthesia Stop: 928 Procedure: FISTULAGRAM (N/A ) Diagnosis: (ESRD) Surgeons: Jose Light MD Responsible Provider: Merlin Joyce MD Anesthesia Type: MAC ASA Status: 3 All Anesthesia Providers: Anesthesiologist: Merlin Joyce MD OPHTHALMIC DISPENSER: Олег Robles CRNA Vitals Value Taken Time BP 118/69 01/25/22 1045 Temp 36 ??C (96.8 ??F) 01/25/22 1115 Pulse Resp 16 01/25/22 1045 SpO2 97 % 01/25/22 1100 Pain Level 0 01/25/22 0930 Patient Location: PACU/[facility] Level of Consciousness: Awake and Alert Pain Management: Satisfactory Analgesia PONV: None Cardiovascular Status: Hemodynamically Stable Respiratory Status: Stable Respiratory Status Postoperative Fluid Status: Intravascular EUvolemia Possible Anesthetic Complications: NONE apparent at time of evaluation Final Primary Anesthesia Type: MAC (The anesthetic type performed was the same as planned.) Comments: * Anesthesia Preprocedure Evaluation - Merlin Joyce MD - 01/24/2022 7:15 PM EDT Pre-Anesthesia Evaluation for: Maurice Rudolph a 61 y.o. male. Procedure(s): FISTULAGRAM Patient Active Problem List Diagnosis Date Noted ??? ESRD on dialysis 06/11/2020 ??? Closed fracture of right proximal humerus 07/30/2019 ??? Closed nondisplaced fracture of shaft of right clavicle 07/30/2019 ??? Right scapula fracture 07/30/2019 ??? Fall 07/30/2019 ??? Pre-transplant evaluation for ESRD (end stage renal disease) 06/20/2018 ??? Class 2 severe obesity due to excess calories with serious comorbidity and body mass index (BMI) of 39.0 to 39.9 in adult 06/08/2018 ??? Pseudophakia of both eyes 10/03/2013 ??? PCO (posterior capsular opacification) 10/03/2013 ??? Eye pain 02/19/2013 ??? Ocular hypertension of right eye. Postop 01/09/2013 ??? Ischemic diabetic maculopathy 11/06/2012 ??? Type 2 diabetes mellitus with ESRD (end-stage renal disease) 11/06/2012 ??? Hyperopia 05/03/2012 ??? 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 HTN (hypertension) 04/03/2012 ??? GERD (gastroesophageal reflux disease) 04/03/2012 ??? Proliferative diabetic retinopathy, both eyes 06/15/2011 Past Medical History: Diagnosis Date ??? Acute [...] AV Fistula Evaluations 06/17/2020 Kimani Larson MD [facility] INTERVENTIONL RAD ??? IR DIALYSIS ACCESS - AV FISTULA EVALUATIONS 11/04/2020 IR Dialysis Access - AV Fistula Evaluations 11/04/2020 Kimani Larson MD [facility] INTERVENTION[facility] RAD ??? PERIPHERAL IRIDOTOMY 04/06/2012 OD [facility] ??? PRO EXTRACAPSULAR CATARACT RMVL INSERTION IO LENS PROSTH CPLX WO ECP 07/18/2012 ??? PRO EXTRACAPSULAR CATARACT RMVL INSERTION IO LENS PROSTH W/O ECP 11/29/2012 CATARACT EXTRACTION, EXTRACAPSULAR, W/ LENS INSERTION performed by Erasmo Bajwa MD at [facility] OSC ? ? PRO REPAIR COMPLEX RETINA DETACH VITRECTOMY & MEMB PEEL 04/03/2012, 04/03/12 REPAIR COMPLEX RETINAL DETACHMENT, W/ VITRECTOMY, MEMBRANE PEELING performed by Matteo Diane MD at [facility] MAIN OR ? ? PRO REPAIR COMPLEX RETINA DETACH VITRECTOMY & MEMB PEEL 07/31/2012 REPAIR COMPLEX RETINAL DETACHMENT, W/ VITRECTOMY, MEMBRANE PEELING performed by Matteo Diane MD at [facility] MAIN OR ? ? PRO REPAIR COMPLEX RETINA DETACH VITRECTOMY & MEMB PEEL 01/08/2013 REPAIR COMPLEX RETINAL DETACHMENT, W/ VITRECTOMY, MEMBRANE PEELING performed by Matteo Diane MD at [facility] MAIN OR ??? PRO TX EXTENSIVE RETINOPATHY, [...] CAPSULOTOMY 11/15/2013 OS - Dr Bajwa Social History Tobacco Use ??? Smoking status: Former Smoker ??? Smokeless tobacco: Never Used ??? Tobacco comment: quit in his 20's Substance Use Topics ??? Alcohol use: No Social History Substance and Sexual Activity Drug Use No Allergies Allergen Reactions ??? Mirtazapine Other reaction(s): Other (see comments) Agitation, Nightmares. Medications: MAR and/or home medications have been reviewed. Physical Exam: Preprocedure Vitals Current as of 01/24/221914 No BP, pulse, respiration, SpO2, or temperature recorded. Height: Weight: BMI: IBW: Airway Assessment: Mallampati: III TM distance: >3 FB Neck ROM: full Cardiovascular Assessment: Rhythm: regular Rate: normal Pulmonary Assessment: unlabored breathing Dental Assessment: (+) edentulous Misc Assessment: Patient is wearing No contact(s). Last Filed Perioperative Cognitive Screening None Anesthesia Plan: ASA 3 MAC, with a(n) intravenous induction Region - Other Informed Consent: Anesthetic plan and risks discussed with patient. Attending NOTE Brief HPI: 61 y.o. with ESRD to IR for fistulogram. Multiple previous fistulagrams under MAC w/o problems Diagnosis ??? Proliferative diabetic retinopathy, both eyes ??? HTN (hypertension) ??? GERD (gastroesophageal reflux disease) ??? Type 2 diabetes mellitus with ESRD (end-stage renal disease) ??? Class 2 severe obesity due to excess calories with serious comorbidity and body mass index (BMI) of 39.0 to 39.9 in adult ??? ESRD on dialysis (--Tue) last HD 01/23 Past Medical History: Diagnosis Date ??? Acute [...] dialysis, with long-term current use of insulin BP Readings from Last 3 Encounters: 11/04/20 135/55 06/17/20 154/85 02/06/20 151/87 METS:>4 Cardiac Symptoms: denies LABS: Lab Results Component Value Date HGB 12.9 (L) 06/17/2020 PLATELET 142 (L) 06/17/2020 INR 1.0 02/06/2020 NA 137 06/17/2020 K 3.9 11/04/2020 CREATININE 2.44 (H) 06/17/2020 Type and Screen: Lab Results Component Value Date ABORH A Pos 02/06/2020 Past anesthetic problems: denies Previous airway notes (on eDH): hx of difficult MV NPO status: Reviewed and appropriate Anesthetic Plan: MAC; GA backup Monitoring: Standard ASA monitors Anesthesia Screening documented in this encounter Plan of Treatment Not on file documented as of this encounter Visit Diagnoses Not on filedocumented in this encounter Administered Medications Inactive Administered Medications - up to 3 most recent administrations Medication Order MAR Action Action Date Dose Rate Site dexmedeTOMIDine (Precedex) (4 mcg/mL) bolus injection (Anesthsia) Intravenous, PRN, Starting on Tue01/25/22 at 0757, Until Tue01/25/22 at 0924, Anesthesia Intra-op, Routine Given 01/25/2022 8:13 AM EDT 4 mcg Given 01/25/2022 7:57 AM EDT 4 mcg dexmedeTOMIDine (Precedex) (4 mcg/mL) in sodium chloride 0.9% 50 mL infusion Intravenous, CONTINUOUS PRN, Starting on Tue01/25/22 at 0757, Until Tue01/25/22 at 0924, Anesthesia Intra-op New Bag 01/25/2022 7:57 AM EDT 0.2 mcg/kg/hr 5.165 mL/hr lactated ringers infusion Intravenous, CONTINUOUS PRN, Starting on Tue01/25/22 at 0720, Until Tue01/25/22 at 0924, Anesthesia Intra-op New Bag 01/25/2022 7:20 AM EDT midazolam (pf) (Versed) (1 mg/mL) multi-dose injection Intravenous, PRN, Starting on Tue01/25/22 at 0747, Until Tue01/25/22 at 1123, Anesthesia Intra-op, Routine Given 01/25/2022 7:47 AM EDT 2 mg PHENYLephrine in NS (PF) (GWEN-SYNEPHRINE) 0.8 mg/10 mL (80 mcg/mL) multi-dose injection Syrg Intravenous, PRN, Starting on Tue01/25/22 at 0818, Until Tue01/25/22 at 09, Anesthesia Intra-op, Routine Given 01/25/2022 9:01 AM EDT 80 mcg Given 01/25/2022 8:53 AM EDT 80 mcg Given 01/25/2022 8:41 AM EDT 80 mcg propofoL (Diprivan) (10 mg/mL) infusion Intravenous, CONTINUOUS PRN, Starting on Tue01/25/22 at 0757, Until Tue01/25/22 at 09, Anesthesia Intra-op, Routine New Bag 01/25/2022 7:57 AM EDT 50 mcg/kg/min 30.99 mL/hr propofoL (Diprivan) 10 mg/mL bolus injection (Anesthesia) Intravenous, PRN, Starting on Tue01/25/22 at 0757, Until Tue01/25/22 at 09, Anesthesia Intra-op Given 01/25/2022 8:18 AM EDT 30 mg Given 01/25/2022 7:57 AM EDT 30 mg documented in this encounter Care Teams Line Painting Machine Operator Relationship Specialty Start Date End Date Kimani Leger MD [address] [place] [address] PCP - General Family Medicine 02/10/21 documented as of this encounter
--- OUTSIDE RECORDS SUMMARY | 2023-12-28 16:36 | XMS_ITS | Encounter Summary ---
Author Organization [facility] [place] [address] Care Team Providers Care Sign Fabricator Name Role Phone Kimani Leger MD Primary Care Provider [phone] Encounter Details Date Type Department Care Team (Late st Contact Info) Description 01/25/2022 7:30 AM EDT - 01/25/2022 9:30 [place] [address] Jose Light MD [facility] DR DIAGNOSTIC [place] [address] FISTULAGRAM Social History Tobacco Use Types Packs/Day [...] Sign Reading Time Taken Comments Blood Pressure 102/52 01/25/2022 9:30 AM EDT Pulse 90 01/25/2022 6:36 AM EDT Temperature 36.2 ??C (97.2 ??F) 01/25/2022 9:30 AM ED T Respiratory Rate 16 01/25/2022 9:30 AM EDT Oxygen Saturation 99% 01/25/2022 9:30 AM EDT Inhaled Oxygen Concentration - - Weight 103.3 kg (227 lb 12.8 oz) 01/25/2022 6:36 AM EDT Height 162.6 cm (5' 4) 01/25/2022 6:36 AM EDT Body Mass Index 39.1 01/25/2022 6:36 AM EDT documented in this encounter Discharge Instructions * Discharge Instructions* Sheela Khan RN - 01/25/2022 10:02 AM EDT [facility] Vascular and Interventional Radiology Discharge Instructions [...] or call 911. Notify your Dialysis Center: If you notice a change in the pulse or thrill in your fistula. If you notice a change in your skin color at or around the fistula. If you notice a change in the circulation below the fistula (i.e., fingers or toes) such as cool and/or pale skin. If you see any redness or swelling. If you develop a fever greater than or equal to 101 degrees Fahrenheit. If you develop shaking chills. If you develop pain around the fistula site. If you have questions about your fistula or dialysis. When to call the Interventional Radiology Department: Please call with any questions or concerns. If it is during regular office hours, please call [phone]. If it is after regular office hours, or on weekends or holidays, please call [phone] and ask to speak to the Dispensing And Measuring Optician mutton puncher for Interventional Radiology. You have received medication [...] as of this encounter Progress Notes * Lee Aiken RN - 01/25/2022 12:19 PM EDT AVS reviewed with pt with good understanding. IV removed without difficulty. Pt meets discharge criteria at this time. Pt discharged home via ride service, [facility]. Linda GIMENEZ documented in this encounter Plan of Treatment Not on file documented as of this encounter Procedures Procedure Name Priority Date/Time Associated Diagnosis Comments FISTULAGRAM 01/25/2022 7:46 AM EDT ESRD HC POTASSIUM Routine 01/25/2022 7:17 AM EDT POCT GLUCOSE Routine 01/25/2022 6:39 AM EDT documented in this encounter Results * Potassium (01/25/2022 7:17 AM EDT) Potassium 4.2 3.5 - 5.0 mmol/L [facility] Comment: Please note: ??Patients with WBC >100,000 may have falsely elevated Potassium levels. ??For accurate Potassium quantification in these patients send serum separator tube (gold top) for subsequent determinations. ??Contact the Clinical Chemistry Laboratory if there are any questions. Blood 01/25/2022 7:17 AM EDT 01/25/2022 7:25 AM EDT Narrative Resulting Agency Comment Spec In Lab Johanna Green APRN CHEMISTRY ORDERABL ES [facility] [place] [address] * POCT Glucose (01/25/2022 6:39 AM EDT) Glucose, POC 178 65 - 199 mg/dL [facility] Comment: Supplemental ranges: <140 mg/dL before meals <180 mg/dL all other times of the day Blood 01/25/2022 6:39 AM EDT 01/25/2022 6:39 AM EDT Jose Light MD POINT OF CARE TEST O RDERABLES [facility] [place] [address] documented in this encounter Visit Diagnoses Not on filedocumented in this encounter Administered Medications Inactive Administered Medications - up to 3 most recent administrations Medication Order MAR Action Action Date Dose Rate Site acetaminophen (Tylenol) tablet 1,000 mg 1,000 mg, Oral, ONCE, 1 dose, On Tue01/25/22 at 0730, Administer with SIP of H2O only. Maximum dose of acetaminophen is 4,000 mg from all sources in 24 hours., Day of Surgery (Day of Procedure), Routine Given 01/25/2022 7:24 AM EDT 1,000 mg sodium chloride 0.9% infusion 1,000 mL, at 100 mL/hr, Intravenous, CONTINUOUS, Starting on Tue01/25/22 at 0730, Until Tue01/25/22 at 1219, Day of Surgery (Day of Procedure) New Bag 01/25/2022 7:25 AM EDT 1,000 mLs 100 mL/hr documented in this encounter Active and Recently Administered Medications Times are shown in EDT. Scheduled Medication Order 01/23/2022 01/24/2022 01/25/2022 acetaminophen (Tylenol) tablet 1,000 mg (COMPLETED) 1,000 mg, Oral, ONCE, 1 dose, On Tue01/25/22 at 0730, Administer with SIP of H2O only. Maximum dose of acetaminophen is 4,000 mg from all sources in 24 hours., Day of Surgery (Day of Procedure), Routine 0724 (Given - Provid er: Mimi Cole RN) Continuous Medication Order 01/23/2022 01/24/2022 01/25/2022 sodium chloride 0.9% infusion (CANCELED) 1,000 mL, at 100 mL/hr, Intravenous, CONTINUOUS, Starting on Tue01/25/22 at 0730, Until Tue01/25/22 at 1219, Day of Surgery (Day of Procedure) 07 ([facility] - Prov ider: Mimi Cole RN) documented in this encounter Care Teams Sign Fabricator Relationship Specialty Start Date End Date Kimani Leger MD [facility] [place] [address] PCP - General Family Medicine 02/10/21 documented as of this encounter
--- OUTSIDE RECORDS SUMMARY | 2023-12-28 16:36 | XMS_ITS | Encounter Summary ---
Author Organization [facility] [place] [place] [address] Care Team Providers Care Bottom Saw Operator Name Role Phone Kimani Leger MD Primary Care Provider [phone] Encounter Details Date Type Department Care Team (Late st Contact Info) Description 04/20/2023 [place] [phone] Too Morgan MD [facility] [address] Social History Tobacco Use Types Packs/Day Years [...] on filedocumented in this encounter Care Teams Bottom Saw Operator Relationship Specialty Start Date End Date Kimani Leger MD [address] [place] [address] PCP - General Family Medicine 02/10/21 documented as of this encounter
--- OUTSIDE RECORDS SUMMARY | 2023-12-28 16:36 | XMS_ITS ---
Author Name Simi Mcfadden Address [address] [place] [address] Phone [phone] Organization [facility] e, NA DOCUMENT DISCLAIMER Multiple document versions may exist, please be sure you review the latest version. The information in the [facility] Progress Note Document represents a providers documented clinical note containing certain health and medical information. It may not contain the complete medical history for the patient and should be independently verified. The represented time in the document is Eastern Time PROVIDER ROUNDING NOTE BASIC Patient:?SINDI?FERNANDA,?1960,?63y,?M Dialysis?Location:?[facility] Attending?Hematologist Oncologist:?Too?Eddie Service?Date:?05/20/2023 Service?Provider:?Simi?Lesa,?HONEY PROCESSOR I?met?face?to?face?with?the?patient?today. OVERVIEW The?patient?presented?with?ESRD?on?dialysis Primary?cause?of?renal?failure:?Type?2?diabetes?mellitus&#16 0;with?diabetic?chronic?kidney?disease Comments:?05/18/23?patient's?diarrhea?has?resolved.?He?had?no ?prior?antibiotics.?He?can't?comment?on?whether?it?was& #160;bloody?or?not?because?of?his?visual?impairment.?It&#160 ;seems?to?be?resolving,?however.?If?it?occurs,?we?can send?stool?samples. Medications?and?labs?reviewed. LAST?HOSPITALIZATION Discharge?Diagnosis:?R78.81?Bacteremia Admission?Date?08/15/22 Discharge?Date?08/18/22 DIALYSIS?PRESCRIPTION ??IHD?3x?Week?Start?date:?04/04/23 ??Dialyzer:?180NRe?Optiflux ??BFR:?450 ??DFR:?Manual?500 ??Potassium:?2.0 ??Sodium:?137 ??EDW:?98.5 ??Duration:?4:00 ??Calcium:?2.5 ??Bicarb:?35 ??Rx?updated?on:?04/04/2023 TREATMENT?ASSESSMENT BP?Stand?Pre ??05/18/2023:?128/58 ??05/16/2023:?175/81 ??05/13/2023:?133/66 BP?Sit?Pre ??05/18/2023:?137/32 ??05/16/2023:?177/84 ??05/13/2023:?130/58 BP?Stand?Post ??05/18/2023:?160/81 ??05/16/2023:?143/60 ??05/13/2023:?103/55 BP?Sit?Post ??05/18/2023:?143/68 ??05/16/2023:?163/79 ??05/13/2023:?154/79 Tx?Duration ??05/18/2023:?4:04 ??05/16/2023:?4:05 ??05/13/2023:?4:04 Missed?Treatments 0?-?last?30?days 0?-?last?60?days FLUID?ASSESSMENT EDW?(kg) ??05/18/2023:?98.5 ??05/16/2023:?98.5 ??05/13/2023:?98.5 Weight?Pre?(kg) ??05/18/2023:?100.8 ??05/16/2023:?102.1 ??05/13/2023:?101.9 Weight?Post?(kg) ??05/18/2023:?98.9 ??05/16/2023:?99.0 ??05/13/2023:?98.7 PWV?(kg) ??05/18/2023:?0.4 ??05/16/2023:?0.5 ??05/13/2023:?0.2 UF?Rate?(mL/kg/hr) ??05/18/2023:?4.7 ??05/16/2023:?7.7 ??05/13/2023:?8 ADEQUACY?ASSESSMENT spKt/V,?URR ??05/04/2023:?1.79,?78.0 ??04/04/2023:?1.6,?74.0 ??03/07/2023:?1.79,?78.0 ACCESS?ASSESSMENT ??Access?Type:?AVFistula ??Access?SubType:?Standard ??Access?Status:?Active?(In?Use)?-?09/14/2017 ??Access?Location:?Left?Forearm ??Created:?04/13/2017 Flow ??05/09/2023:?949 ??04/06/2023:?973 ??03/09/2023:?958 ANEMIA?ASSESSMENT HGB,?TSAT ??05/16/2023:?12.0,?- ??05/09/2023:?11.4,?- ??05/04/2023:?11.8,?33.0 ?? Ferritin ??05/04/2023:?953.0 ??04/04/2023:?863.0 ??03/07/2023:?726.0 Mircera,?IVP?(mcg) ??05/06/2023:?75 ??04/22/2023:?75 ??04/08/2023:?75 Iron?Sucrose?(Venofer)?(mg) ??05/06/2023:?50 ??04/29/2023:?50 ??04/22/2023:?50 BMM?ASSESSMENT Phosphorus,?Calcium ??05/16/2023:?-,?8.9 ??05/09/2023:?-,?8.5 ??05/04/2023:?6.3,?8.5 ?? PTH,?Intact ??05/04/2023:?379.0 ??04/04/2023:?366.0 ??03/07/2023:?429.0 Vitamin?D?(Calcitriol)?Oral?(mcg) ??05/18/2023:?0.75 ??05/16/2023:?0.75 ??05/13/2023:?0.75 NUTRITION?ASSESSMENT Albumin,?Potassium ??05/04/2023:?4.3,?4.6 ??04/04/2023:?4.3,?5.0 ??03/07/2023:?4.2,?5.2 ?? eNPCR ??05/04/2023:?1.33 ??04/04/2023:?1.14 ??03/07/2023:?1.21 DIAGNOSIS Chief?Complaint:?N18.6?End?stage?renal?disease Patient?data?updated?05/20/2023?at?10:25?AM Signed?By:?Lesa,?Simi,?HONEY PROCESSOR??on?05/20/2023?10:25:36 AM END OF DOCUMENT
--- OUTSIDE RECORDS SUMMARY | 2023-12-28 16:36 | XMS_ITS | Encounter Summary ---
[facility] [place] [place] [address] Care Team Providers Care Traveling Engineer Name Role Phone Kimani Leger MD Primary Care Provider [phone] Encounter Details Date Type Department Care Team (Late st Contact Info) Description 01/17/2023 [place] [phone] Too Morgan MD [facility] [place] [address] Social History Tobacco Use Types Packs/Day Years [...] on filedocumented in this encounter Care Teams Traveling Engineer Relationship Specialty Start Date End Date Kimani Leger MD [address] [place] [address] PCP - General Family Medicine 02/10/21 documented as of this encounter
--- OUTSIDE RECORDS SUMMARY | 2023-12-28 16:36 | XMS_ITS | Encounter Summary ---
[place] [address] Care Team Providers Care Orchestra Leader Name Role Phone Kimani Leger MD Primary Care Provider [phone] Encounter Details Date Type Department Care Team (Late st Contact Info) Description 08/12/2022 6:20 PM EDT Ancillary Procedure [place] [address] [place] [address] Social History Tobacco Use Types Packs/Day Years [...] FILM LIBRARY STORAGE ONLY DX CHEST Routine 08/12/2022 6:15 PM EDT documented in this encounter Results * Film Library- Storage Only DX Chest (08/12/2022 6:15 PM EDT) Narrative RAD - 08/12/2022 6:15 PM EDT This exam is auto-finalizing. It's purpose is for storage only. Emerald Hinton MD IMG FILM LIBRARY ORD ERABLES Performing Organization Address City/State/[facility] Co de Phone Number [place], [place] documented in this encounter Visit Diagnoses Not on filedocumented in this encounter Care Teams Orchestra Leader Relationship Specialty Start Date End Date Kimani Leger MD [address] [place] [address] PCP - General Family Medicine 02/10/21 documented as of this encounter
--- OUTSIDE RECORDS SUMMARY | 2023-12-28 16:36 | XMS_ITS ---
Author Name Simi Mcfadden Address [address] [place] [address] Phone [phone] Organization [facility] e, NA DOCUMENT DISCLAIMER Multiple document versions may exist, please be sure you review the latest version. The information in the [facility] Progress Note Document represents a providers documented clinical note containing certain health and medical information. It may not contain the complete medical history for the patient and should be independently verified. The represented time in the document is Eastern Time PROVIDER ROUNDING NOTE BASIC Patient:?SINDI?FERNANDA,?1960,?62y,?M Dialysis?Location:?[facility] Attending?Home Care Scheduler:?Too?Eddie Service?Date:?12/08/2022 Service?Provider:?Simi?Lesa,?UNION REPRESENTATIVE I?met?face?to?face?with?the?patient?today. OVERVIEW The?patient?presented?with?ESRD?on?dialysis Primary?cause?of?renal?failure:?Type?2?diabetes?mellitus&#16 0;with?diabetic?chronic?kidney?disease Comments:?12/08/22?-?Stable?dialysis?treatment?with?no?complai nts?or?acute?issues.?Access?flow?improved. 8.?Needs?new?access?flow?to?decide?if?he?needs?another?fistulogram? Medications?and?labs?reviewed. LAST?HOSPITALIZATION Discharge?Diagnosis:?R78.81?Bacteremia Admission?Date?08/15/22 Discharge?Date?08/18/22 DIALYSIS?PRESCRIPTION ??IHD?3x?Week?Start?date:?11/10/22 ??Dialyzer:?180NRe?Optiflux ??BFR:?450 ??DFR:?Manual?500 ??Potassium:?2.0 ??Sodium:?137 ??EDW:?98 ??Duration:?4:00 ??Calcium:?2.5 ??Bicarb:?35 ??Rx?updated?on:?11/08/2022 TREATMENT?ASSESSMENT BP?Stand?Pre ??12/06/2022:?157/72 ??12/01/2022:?195/98 BP?Sit?Pre ??12/06/2022:?188/95 ??12/03/2022:?180/86 ??12/01/2022:?150/79 BP?Stand?Post ??12/06/2022:?160/85 ??12/03/2022:?168/86 ??12/01/2022:?142/65 BP?Sit?Post ??12/06/2022:?179/87 ??12/03/2022:?159/56 ??12/01/2022:?143/55 Tx?Duration ??12/06/2022:?4:08 ??12/03/2022:?3:58 ??12/01/2022:?4:03 Missed?Treatments 0?-?last?30?days 0?-?last?60?days FLUID?ASSESSMENT EDW?(kg) ??12/06/2022:?98.0 ??12/03/2022:?98.0 ??12/01/2022:?98.0 Weight?Pre?(kg) ??12/06/2022:?101.1 ??12/03/2022:?100.8 ??12/01/2022:?100.2 Weight?Post?(kg) ??12/06/2022:?98.7 ??12/03/2022:?98.6 ??12/01/2022:?98.0 PWV?(kg) ??12/06/2022:?0.7 ??12/03/2022:?0.6 ??12/01/2022:?0.0 UF?Rate?(mL/kg/hr) ??12/06/2022:?5.9 ??12/03/2022:?5.6 ??12/01/2022:?5.5 ADEQUACY?ASSESSMENT spKt/V,?URR ??11/03/2022:?1.47,?72.0 ??10/04/2022:?1.62,?74.0 ??09/22/2022:?1.27,?67.0 ACCESS?ASSESSMENT ??Access?Type:?AVFistula ??Access?SubType:?Standard ??Access?Status:?Active?(In?Use)?-?09/14/2017 ??Access?Location:?Left?Forearm ??Created:?04/13/2017 Flow ??12/08/2022:?1039 ??09/02/2022:?903 ??08/05/2022:?950 ANEMIA?ASSESSMENT HGB ??11/29/2022:?10.3 ??11/22/2022:?10.4 ??11/15/2022:?10.2 ?? Ferritin ??11/03/2022:?1068.0 ??10/04/2022:?1211.0 ??09/22/2022:?1113.0 Mircera,?IVP?(mcg) ??11/12/2022:?75 ??10/15/2022:?75 ??09/18/2022:?30 Iron?Sucrose?(Venofer)?(mg) ??12/03/2022:?50 ??11/26/2022:?50 ??11/19/2022:?50 BMM?ASSESSMENT Calcium ??11/29/2022:?7.8 ??11/22/2022:?8.3 ??11/15/2022:?8.5 ?? PTH,?Intact ??11/03/2022:?413.0 ??10/04/2022:?524.0 ??09/22/2022:?528.0 Vitamin?D?(Calcitriol)?Oral?(mcg) ??12/06/2022:?0.50 ??12/03/2022:?0.50 ??12/01/2022:?0.50 NUTRITION?ASSESSMENT Albumin,?Potassium ??11/03/2022:?4.4,?4.8 ??10/04/2022:?3.9,?4.2 ??09/22/2022:?4.2,?4.5 ?? eNPCR ??11/03/2022:?0.98 ??10/04/2022:?0.94 ??08/31/2022:?0.9 DIAGNOSIS Chief?Complaint:?N18.6?End?stage?renal?disease Patient?data?updated?12/08/2022?at?9:42?AM Signed?By:?Lesa,?Simi,?UNION REPRESENTATIVE??on?12/08/2022?9:42:57?AM END OF DOCUMENT
--- OUTSIDE RECORDS SUMMARY | 2023-12-28 16:36 | XMS_ITS ---
Author Name Cynthia Gerber Address [address] [place], [place] [address] Phone [phone] Organization [facility] e, NA DOCUMENT DISCLAIMER Multiple document versions may exist, please be sure you review the latest version. The information in the [facility] Progress Note Document represents a providers documented clinical note containing certain health and medical information. It may not contain the complete medical history for the patient and should be independently verified. The represented time in the document is Eastern Time PROVIDER ROUNDING NOTE BASIC Provider?Rounding?Note?Basic?-?SINDI?FERNANDA?-?Chart?#:?[id number] Patient?was?seen?on:?06/08/2022 Was?Patient?seen?today?:?06/08/2022 Method?of?Interaction:?Face?to?face Date?of?Interaction:?06/08/2022 Patient?is?stable Patient?issues?include: 06/08/2022?-?Decreased?EDW?to?97?based?on?recent?post-rx?weights. Prior?Treatment:?06/05/2022? Dialyzer:?180NRe?Optiflux? Dialysate:?2.0?K,?2.5 Ca,?1.0?Mg,?100?Dextrose?(G2251)? Actual?Time:?04:06?Prescribed?Time:?4:0? Avg?BFR:?450?Avg?DFR:?800? Wt?Gain?(kg):?1.80?EDW?(kg):?98.50? post?Wt?(kg):? VITALS ?Date:?Temperature:?Pulse:?Respirations:?BP?(Sitting):?BP?(Standing):?Weight:? HOME?MEDICATIONS ?Acetaminophen?Extra?Strength?(acetaminophen)??500?mg,?oral, ?2?tablet?every?six?hours ?amlodipine?(amlodipine)??5?mg,?oral,?1?tablet?once a?day ?aspirin?(aspirin)??325?mg,?oral,?1?tablet?once?a day ?bumetanide?(bumetanide)??1?mg,?oral,?2?tablet?twice a?day ?gabapentin?(gabapentin)??300?mg,?oral,?1?capsule?three?times?a?day ?levetiracetam?(levetiracetam)??500?mg,?oral,?1?tablet? once?a?day??[TAKE?ONE?(1)?TABLET(S)?BY?MOUTH?EVERY?MORNING.] ?lidocaine-prilocaine?(lidocaine-prilocaine)??2.5-2.5%,?top,?1?a& #160;small?amount?as?directed??[apply?a?THIN?layer?to&# 160;dialysis?access?1-2?hr?prior?to?dialysis?and?wrap?with?Saran?wrap] ?losartan?(losartan)??50?mg,?oral,?1?tablet?once?a?day ?Novolog?U-100?Insulin?aspart?(insulin?aspart?u-100)??1 00?unit/mL,?subQ,?2?unit?as?directed??[Per?pump?6& #160;clicks?(12?units)?before?meals] ?pravastatin?(pravastatin)??40?mg,?oral,?1?tablet?at bedtime ?Renvela?(sevelamer?carbonate)??800?mg,?oral,?1?tablet& #160;three?times?a?day??[one?with?snacks] ?sertraline?(sertraline)??50?mg,?oral,?1?tablet?once a?day Cynthia?Buzz,? END OF DOCUMENT
--- OUTSIDE RECORDS SUMMARY | 2023-12-28 16:36 | XMS_ITS | Encounter Summary ---
[place] [address] Care Team Providers Care Government Property Inspector Name Role Phone Kimani Leger MD Primary Care Provider [phone] Reason for Visit * Reason Onset Date Comments Appointment 06/09/2021 Encounter Details Date Type Department Care Team (Late st Contact Info) Description 06/09/2021 [place]phone [place] [address] Harmeet Arvizu MD [facility] [place] [address] Appointment Social History Tobacco Use Types Packs/Day Years [...] * Telephone Encounter - Shanika Minaya - 06/25/2021 3:41 PM EST Called and left second message, see below and will send a letter * Telephone Encounter - hSanika Minaya - 06/09/2021 3:25 PM EST Left message with someone at patients home, left our number to call and schedule a NPW1 neuro visitwith Dr Garcia per Dr. 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 documented in this encounter Plan of Treatment Not on file documented as of this encounter Visit Diagnoses Not on filedocumented in this encounter Care Teams Government Property Inspector Relationship Specialty Start Date End Date Kimani Leger MD [facility] [place] [address] PCP - General Family Medicine 02/10/21 documented as of this encounter
--- OUTSIDE RECORDS SUMMARY | 2023-12-28 16:36 | XMS_ITS | Encounter Summary ---
Author Organization [facility] [place] [address] Care Team Providers Care Solar/Renewable Energy Sales Name Role Phone Kimani Leger MD Primary Care Provider Encounter Details Date Type Department Care Team (Latest Contact Info) Description 01/25/2022 6:10 AM EDT - 01/25/2022 12:21 PM EDT Hospital Encounter [place] [address] Jose Light MD [facility] [place] [address] Discharge Disposition: Home Social History Tobacco Use [...] Khan RN - 01/25/2022 10:02 AM EDT [facility] Vascular and Interventional Radiology Discharge Instructions after [...] is during regular office hours, please call [phone]. If it is after regular office hours, or on weekends or holidays, please call [phone] and ask to speak to the Marine Mechanic absorption plant operator helper for Interventional Radiology. You have received medication [...] time. Pt discharged home via ride service, [facility]. Linda GIMENEZ documented in this encounter Plan of Treatment Not on file documented as of this encounter Procedures Procedure Name Priority Date/Time Associated Diagnosis Comments FISTULAGRAM 01/25/2022 7:46 AM EDT ESRD HC POTASSIUM Routine 01/25/2022 7:17 AM EDT POCT GLUCOSE Routine 01/25/2022 6:39 AM EDT documented in this encounter Results * Potassium (01/25/2022 7:17 AM EDT) Potassium 4.2 3.5 - 5.0 mmol/L [facility] [...] Lab Johanna Green APRN CHEMISTRY ORDERABL ES [facility] [place] [address] * POCT Glucose (01/25/2022 6:39 AM EDT) Glucose, POC 178 65 - 199 mg/dL [facility] Comment: Supplemental ranges: <140 mg/dL before meals <180 mg/dL all other times of the day Blood 01/25/2022 6:39 AM EDT 01/25/2022 6:39 AM EDT Jose Light MD POINT OF CARE TEST O RDERABLES [facility] [place] [place] [address] documented in this encounter Visit Diagnoses Not [...] 1219, Day of Surgery (Day of Procedure) 0725 ([facility] - Prov ider: Mimi Cole RN) documented in this encounter Care Teams Solar/Renewable Energy Sales Relationship Specialty Start Date End Date Kimani Leger MD [address] [place] [address] PCP - General Family Medicine 02/10/21 documented as of this encounter
--- OUTSIDE RECORDS SUMMARY | 2023-12-28 16:36 | XMS_ITS | Encounter Summary ---
[place] [address] Care Team Providers Care Workforce Development Vice President Name Role Phone Kimani Leger MD Primary Care Provider Encounter Details Date Type Department Care Team (Late st Contact Info) Description 09/07/2023 Notes Only [place] [address] Nettie Davis APRN [facility] [address] Social History Tobacco Use Types Packs/Day Years Used Date Smoking Tobacco: Former Smokeless Tobacco: Never Comments:quit in his 20's Alcohol Use Standard Drinks/Week Comments No 0 (1 standard drink = 0.6 oz pur e alcohol) Sex and Gender Information Value Date Recorded Sex Assigned at Not on file Gender Identity Not on file Sexual Orientation Not on file documented as of this encounter Progress Notes * Nettie Davis APRN - 09/07/2023 3:55 PM EDTSummary: Basic hemodialysis note Maurice was seen and examined on hemodialysis; tolerating treatment well. Denies chest pain/pressure, NVD, bruising, bleeding or SOB. S1/S2 RRR, Lungs CTA, no edema. No questions or complaints. No new orders at this time. Nettie Davis APRN Nephrology/Hypertension Pager # [phone] documented in this encounter Plan of Treatment Not on file documented as of this encounter Visit Diagnoses Not on filedocumented in this encounter Care Teams Workforce Development Vice President Relationship Specialty Start Date End Date Kimani Leger MD [address] [place] [address] PCP - General Family Medicine 02/10/21 documented as of this encounter
--- OUTSIDE RECORDS SUMMARY | 2023-12-28 16:36 | XMS_ITS ---
Author Name Susan, Nettie Address [address] [place] [address] Phone [phone] Organization [facility] e, NA DOCUMENT DISCLAIMER Multiple document versions may exist, please be sure you review the latest version. The information in the [facility] Progress Note Document represents a providers documented clinical note containing certain health and medical information. It may not contain the complete medical history for the patient and should be independently verified. The represented time in the document is Eastern Time PROVIDER ROUNDING NOTE BASIC Patient:?SINDI?FERNANDA,?1960,?63y,?M Dialysis?Location:?[facility] Attending?Grain Picker:?Too?Eddie Service?Date:?12/26/2023 Service?Provider:?Nettie?Susan,?SOFTWOOD FALLER I?met?face?to?face?with?the?patient?today. OVERVIEW The?patient?presented?with?ESRD?on?dialysis Primary?cause?of?renal?failure:?Type?2?diabetes?mellitus&#16 0;with?diabetic?chronic?kidney?disease Comments:?12/24/23-?seen?and?examined?on?HD.?Tolerated?treatm ent?well.?No?patient?issues?or?complaints.? 12/14/23-?pt?tolerating?tx?well,?no?issues?or?complaints.&#16 0;EDW,?BP?anemia,?adequacy?and?access?flows?are?appropriate.? ?11/21/23-?Tolerated?tx?well.?Gained?extra?fluid?weight? over?the?weekend,?pt?will?watch?fluid?intake?and?will&# 160;try?to?pull?extra?fluid?as?tolerated?over?the?next& #160;couple?of?treatments.?Denies?SOB?today.?No?issues?or pt?complaints.? 11/13?lightheaded?at?home/?post?bp?120/40,?given?wide?pu lse?pressure,?will?increase?EDW?1?kg LAST?HOSPITALIZATION Discharge?Diagnosis:?R78.81?Bacteremia Admission?Date?08/15/22 Discharge?Date?08/18/22 DIALYSIS?PRESCRIPTION ??IHD?3x?Week?Start?date:?11/14/23 ??Dialyzer:?180NRe?Optiflux ??BFR:?450 ??DFR:?Manual?800 ??Potassium:?2.0 ??Sodium:?137 ??EDW:?100 ??Duration:?4:00 ??Calcium:?2.5 ??Bicarb:?35 ??Rx?updated?on:?11/14/2023 TREATMENT?ASSESSMENT BP?Stand?Pre ??12/23/2023:?128/40 ??12/21/2023:?157/80 ??12/19/2023:?129/51 BP?Sit?Pre ??12/23/2023:?169/60 ??12/21/2023:?166/79 ??12/19/2023:?152/71 BP?Stand?Post ??12/23/2023:?132/68 ??12/21/2023:?109/55 ??12/19/2023:?118/57 BP?Sit?Post ??12/23/2023:?147/61 ??12/21/2023:?104/46 ??12/19/2023:?125/60 Tx?Duration ??12/23/2023:?4:09 ??12/21/2023:?4:11 ??12/19/2023:?3:47 Missed?Treatments 0?-?last?30?days 0?-?last?60?days FLUID?ASSESSMENT EDW?(kg) ??12/23/2023:?100.0 ??12/21/2023:?100.0 ??12/19/2023:?100.0 Weight?Pre?(kg) ??12/23/2023:?103.5 ??12/21/2023:?103.4 ??12/19/2023:?104.6 Weight?Post?(kg) ??12/23/2023:?100.7 ??12/21/2023:?100.5 ??12/19/2023:?101.4 PWV?(kg) ??12/23/2023:?0.7 ??12/21/2023:?0.5 ??12/19/2023:?1.4 UF?Rate?(mL/kg/hr) ??12/23/2023:?6.7 ??12/21/2023:?6.9 ??12/19/2023:?8.3 ADEQUACY?ASSESSMENT spKt/V,?URR ??12/05/2023:?1.8,?78.0 ??10/31/2023:?7.46,?97.0 ??10/03/2023:?1.88,?79.0 ACCESS?ASSESSMENT ??Access?Type:?AVFistula ??Access?SubType:?Standard ??Access?Status:?Active?(In?Use)?-?09/14/2017 ??Access?Location:?Left?Forearm ??Created:?04/13/2017 Flow ??12/07/2023:?1367 ??11/16/2023:?886 ??10/05/2023:?1427 ANEMIA?ASSESSMENT HGB,?TSAT ??12/19/2023:?10.7,?- ??12/12/2023:?10.2,?- ??12/05/2023:?9.9,?43.0 ?? Ferritin ??12/05/2023:?1057.0 ??10/31/2023:?1275.0 ??10/10/2023:?1162.0 Mircera,?IVP?(mcg) ??12/16/2023:?150 ??12/02/2023:?150 ??11/18/2023:?100 Iron?Sucrose?(Venofer)?(mg) ??11/04/2023:?50 ??10/28/2023:?50 ??10/21/2023:?50 BMM?ASSESSMENT PTH,?Intact ??12/05/2023:?410.0 ??10/31/2023:?449.0 ??10/03/2023:?459.0 ?? Calcium,?Phosphorus ??12/19/2023:?8.2,?- ??12/12/2023:?8.5,?- ??12/05/2023:?8.9,?5.1 Vitamin?D?(Calcitriol)?Oral?(mcg) ??12/23/2023:?0.75 ??12/21/2023:?0.75 ??12/19/2023:?0.75 NUTRITION?ASSESSMENT Potassium,?Albumin ??12/05/2023:?5.0,?4.2 ??10/31/2023:?4.9,?4.3 ??10/10/2023:?5.8,?- ?? eNPCR ??12/05/2023:?0.88 ??10/31/2023:?1.62 ??10/03/2023:?1.06 DIAGNOSIS Chief?Complaint:?N18.6?End?stage?renal?disease Patient?data?updated?12/26/2023?at?9:30?AM Signed?By:?Susan,?Nettie,?SOFTWOOD FALLER??on?12/26/2023?9:30:57 AM END OF DOCUMENT
--- OUTSIDE RECORDS SUMMARY | 2023-12-28 16:36 | XMS_ITS ---
Author Name Too Morgan Address [address] [place] [address] Phone [phone] Organization [facility] e, NA DOCUMENT DISCLAIMER Multiple document versions may exist, please be sure you review the latest version. The information in the [facility] Progress Note Document represents a providers documented clinical note containing certain health and medical information. It may not contain the complete medical history for the patient and should be independently verified. The represented time in the document is Eastern Time PROVIDER ROUNDING NOTE COMPREHENSIVE Patient:?SINDI?FERNANDA,?1960,?63y,?M Dialysis?Location:?[facility] Attending?Research Software Engineer:?Too?Eddie Service?Date:?04/20/2023 Service?Provider:?Too?Eddie,? I?met?face?to?face?with?the?patient?today. OVERVIEW The?patient?presented?with?ESRD?on?dialysis Primary?cause?of?renal?failure:?Type?2?diabetes?mellitus&#16 0;with?diabetic?chronic?kidney?disease Comments:?04/20?reviewed?bp?meds/?not?clear?if?he?got&# 160;the?10?mg?norvasc?yet/he?will?check?new?shipment?an d?let?us?know?the?next?treatment?rr Medications?and?labs?reviewed. LAST?HOSPITALIZATION Discharge?Diagnosis:?R78.81?Bacteremia Admission?Date?08/15/22 Discharge?Date?08/18/22 DIALYSIS?PRESCRIPTION ??IHD?3x?Week?Start?date:?04/04/23 ??Dialyzer:?180NRe?Optiflux ??BFR:?450 ??DFR:?Manual?500 ??Potassium:?2.0 ??Sodium:?137 ??EDW:?98.5 ??Duration:?4:00 ??Calcium:?2.5 ??Bicarb:?35 ??Rx?updated?on:?04/04/2023 TREATMENT?ASSESSMENT Blood?pressure?elevated.?Medications?adjusted.? BP?Stand?Pre ??04/18/2023:?127/56 ??04/15/2023:?183/101 ??04/13/2023:?139/68 BP?Sit?Pre ??04/18/2023:?143/69 ??04/15/2023:?154/59 ??04/13/2023:?172/74 BP?Stand?Post ??04/18/2023:?144/66 ??04/15/2023:?152/70 ??04/13/2023:?133/52 BP?Sit?Post ??04/18/2023:?130/59 ??04/15/2023:?162/73 ??04/13/2023:?159/78 Tx?Duration ??04/18/2023:?4:02 ??04/15/2023:?4:15 ??04/13/2023:?4:14 Missed?Treatments 0?-?last?30?days 0?-?last?60?days FLUID?ASSESSMENT Fluid?status?acceptable.?Interdialytic?weight?gain?acceptable.?No ?changes?indicated.? EDW?(kg) ??04/18/2023:?98.5 ??04/15/2023:?98.5 ??04/13/2023:?98.5 Weight?Pre?(kg) ??04/18/2023:?101.1 ??04/15/2023:?100.8 ??04/13/2023:?101.7 Weight?Post?(kg) ??04/18/2023:?98.3 ??04/15/2023:?98.0 ??04/13/2023:?98.1 PWV?(kg) ??04/18/2023:?-0.2 ??04/15/2023:?-0.5 ??04/13/2023:?-0.4 UF?Rate?(mL/kg/hr) ??04/18/2023:?7.1 ??04/15/2023:?6.7 ??04/13/2023:?8.7 ADEQUACY?ASSESSMENT Adequacy?target?met.?Prescription?compliance?acceptable.? spKt/V,?URR ??04/04/2023:?1.6,?74.0 ??03/07/2023:?1.79,?78.0 ??01/31/2023:?1.71,?76.0 ACCESS?ASSESSMENT ??Access?Type:?AVFistula ??Access?SubType:?Standard ??Access?Status:?Active?(In?Use)?-?09/14/2017 ??Access?Location:?Left?Forearm ??Created:?04/13/2017 Flow ??04/06/2023:?973 ??03/09/2023:?958 ??01/05/2023:?835 Vascular?access?reviewed.?Current?access?is?permanent?and?functioning?well. ANEMIA?ASSESSMENT HGB?at?goal.?Iron?parameters?acceptable.?MICHEL?dose?adequate.& #160;No?changes?indicated.? HGB,?TSAT ??04/11/2023:?10.5,?- ??04/04/2023:?11.1,?58.0 ??03/28/2023:?11.1,?- ?? Ferritin ??04/04/2023:?863.0 ??03/07/2023:?726.0 ??01/31/2023:?883.0 Mircera,?IVP?(mcg) ??04/08/2023:?75 ??02/25/2023:?75 ??02/11/2023:?75 Iron?Sucrose?(Venofer)?(mg) ??04/15/2023:?50 ??04/08/2023:?50 ??2023:?50 BMM?ASSESSMENT PTH?controlled.?Calcium?controlled.?Phosphorus?controlled.?No?naomi nges?indicated.? Phosphorus,?Calcium ??04/11/2023:?-,?8.3 ??04/04/2023:?4.2,?9.0 ??03/28/2023:?-,?8.4 ?? PTH,?Intact ??04/04/2023:?366.0 ??03/07/2023:?429.0 ??01/31/2023:?576.0 Vitamin?D?(Calcitriol)?Oral?(mcg) ??04/18/2023:?0.75 ??04/15/2023:?0.75 ??04/13/2023:?0.75 NUTRITION?ASSESSMENT Potassium?controlled.?Albumin?controlled.?No?changes?indicated.? Albumin,?Potassium ??04/04/2023:?4.3,?5.0 ??03/07/2023:?4.2,?5.2 ??01/31/2023:?4.1,?5.0 ?? eNPCR ??04/04/2023:?1.14 ??03/07/2023:?1.21 ??01/31/2023:?0.86 PHYSICAL?EXAM Exam?Performed.?Vital?Signs?Reviewed.?Lungs?-?Clear. DIAGNOSIS Chief?Complaint:?N18.6?End?stage?renal?disease Patient?data?updated?04/20/2023?at?10:03?AM Signed?By:?Eddie,?Too,???on?04/20/2023?10:05:17 AM END OF DOCUMENT
--- OUTSIDE RECORDS SUMMARY | 2023-12-28 16:36 | XMS_ITS ---
Author Name Simi Mcfadden Address [address] [place] [id number] Phone [phone] Organization [facility] e, NA DOCUMENT DISCLAIMER Multiple document versions may exist, please be sure you review the latest version. The information in the [facility] Progress Note Document represents a providers documented clinical note containing certain health and medical information. It may not contain the complete medical history for the patient and should be independently verified. The represented time in the document is Eastern Time PROVIDER ROUNDING NOTE BASIC Patient:?SINDI?FERNANDA,?1960,?63y,?M Dialysis?Location:?[facility] Attending?Chamber Walker:?Too?Eddie Service?Date:?06/17/2023 Service?Provider:?Simi?Lesa,?PHOTOGRAPHER STILL I?met?face?to?face?with?the?patient?today. 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 06/08/23?-?Stable?dialysis?treatment.?No?acute?issues?or?complaints.? 06/06/23?-?Missed?dialysis?on?Tuesday?due?to?GI?bug.? Feeling?better?today.?High?IDWG?due?to?missed?treatment. Stable?treatment.? 05/18/23?patient's?diarrhea?has?resolved.?He?had?no?prior&#16 0;antibiotics.?He?can't?comment?on?whether?it?was?bloody&#16 0;or?not?because?of?his?visual?impairment.?It?seems?to& #160;be?resolving,?however.?If?it?occurs,?we?can?send?stool?samples. Medications?and?labs?reviewed. LAST?HOSPITALIZATION Discharge?Diagnosis:?R78.81?Bacteremia Admission?Date?08/15/22 Discharge?Date?08/18/22 DIALYSIS?PRESCRIPTION ??IHD?3x?Week?Start?date:?04/04/23 ??Dialyzer:?180NRe?Optiflux ??BFR:?450 ??DFR:?Manual?500 ??Potassium:?2.0 ??Sodium:?137 ??EDW:?98.5 ??Duration:?4:00 ??Calcium:?2.5 ??Bicarb:?35 ??Rx?updated?on:?04/04/2023 TREATMENT?ASSESSMENT BP?Stand?Pre ??06/15/2023:?175/89 ??06/13/2023:?121/83 ??06/10/2023:?172/75 BP?Sit?Pre ??06/15/2023:?168/89 ??06/13/2023:?158/67 ??06/10/2023:?152/64 BP?Stand?Post ??06/15/2023:?153/81 ??06/13/2023:?130/94 ??06/10/2023:?158/74 BP?Sit?Post ??06/15/2023:?153/88 ??06/13/2023:?150/82 ??06/10/2023:?165/73 Tx?Duration ??06/15/2023:?3:58 ??06/13/2023:?4:09 ??06/10/2023:?4:01 Missed?Treatments 1?-?last?30?days 1?-?last?60?days 2/2?-?recent FLUID?ASSESSMENT EDW?(kg) ??06/15/2023:?98.5 ??06/13/2023:?98.5 ??06/10/2023:?98.5 Weight?Pre?(kg) ??06/15/2023:?102.2 ??06/13/2023:?103.6 ??06/10/2023:?103.0 Weight?Post?(kg) ??06/15/2023:?99.9 ??06/13/2023:?99.7 ??06/10/2023:?100.0 PWV?(kg) ??06/15/2023:?1.4 ??06/13/2023:?1.2 ??06/10/2023:?1.5 UF?Rate?(mL/kg/hr) ??06/15/2023:?5.8 ??06/13/2023:?9.4 ??06/10/2023:?7.5 ADEQUACY?ASSESSMENT spKt/V,?URR ??06/06/2023:?1.17,?62.0 ??05/04/2023:?1.79,?78.0 ??04/04/2023:?1.6,?74.0 ACCESS?ASSESSMENT ??Access?Type:?AVFistula ??Access?SubType:?Standard ??Access?Status:?Active?(In?Use)?-?09/14/2017 ??Access?Location:?Left?Forearm ??Created:?04/13/2017 Flow ??06/08/2023:?811 ??05/09/2023:?949 ??04/06/2023:?973 ANEMIA?ASSESSMENT HGB,?TSAT ??06/13/2023:?10.2,?- ??06/06/2023:?10.9,?53.0 ??05/30/2023:?11.3,?- ?? Ferritin ??06/06/2023:?831.0 ??05/04/2023:?953.0 ??04/04/2023:?863.0 Mircera,?IVP?(mcg) ??05/06/2023:?75 ??04/22/2023:?75 ??04/08/2023:?75 Iron?Sucrose?(Venofer)?(mg) ??06/10/2023:?50 ??05/06/2023:?50 ??04/29/2023:?50 BMM?ASSESSMENT Phosphorus,?Calcium ??06/13/2023:?-,?8.2 ??06/06/2023:?5.9,?8.3 ??05/30/2023:?-,?8.8 ?? PTH,?Intact ??06/06/2023:?382.0 ??05/04/2023:?379.0 ??04/04/2023:?366.0 Vitamin?D?(Calcitriol)?Oral?(mcg) ??06/15/2023:?0.75 ??06/13/2023:?0.75 ??06/10/2023:?0.75 NUTRITION?ASSESSMENT Albumin,?Potassium ??06/06/2023:?4.1,?5.0 ??05/04/2023:?4.3,?4.6 ??04/04/2023:?4.3,?5.0 ?? eNPCR ??06/06/2023:?1.24 ??05/04/2023:?1.33 ??04/04/2023:?1.14 DIAGNOSIS Chief?Complaint:?N18.6?End?stage?renal?disease Patient?data?updated?06/17/2023?at?9:20?AM Signed?By:?Lesa,?Simi,?PHOTOGRAPHER STILL??on?06/17/2023?9:21:52?AM END OF DOCUMENT
--- OUTSIDE RECORDS SUMMARY | 2023-12-28 16:36 | XMS_ITS ---
Author Name Stephanie Davisberly Address [address] [place] [address] Phone [phone] Organization [facility] e, NA DOCUMENT DISCLAIMER Multiple document versions may exist, please be sure you review the latest version. The information in the [facility] Progress Note Document represents a providers documented clinical note containing certain health and medical information. It may not contain the complete medical history for the patient and should be independently verified. The represented time in the document is Eastern Time PROVIDER ROUNDING NOTE BASIC Patient:?SINDI?FERNANDA,?1960,?63y,?M Dialysis?Location:?[facility] Attending?Heater Helper Forge:?Too?Eddie Service?Date:?11/07/2023 Service?Provider:?Nettie?Susan,?SCHOOL SPEECH THERAPIST I?met?face?to?face?with?the?patient?today. OVERVIEW The?patient?presented?with?ESRD?on?dialysis Primary?cause?of?renal?failure:?Type?2?diabetes?mellitus&#16 0;with?diabetic?chronic?kidney?disease Comments:?11/07/23-?Tx?terminated?early?r/t?facility?issues.?T olerated?treatment?well,?no?pt?issues?or?complaints.? 11/02/23?-?Stable?dialysis?treatment?with?no?acute?issues or?complaints. 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?11/04/2023:?113/60 ??11/02/2023:?129/66 ??10/31/2023:?159/79 Tx?Duration ??11/04/2023:?4:02 ??11/02/2023:?4:06 ??10/31/2023:?4:08 Missed?Treatments 0?-?last?30?days 1?-?last?60?days 5/20?-?recent FLUID?ASSESSMENT EDW?(kg) ??11/04/2023:?98.5 ??11/02/2023:?98.5 ??10/31/2023:?98.5 Weight?Pre?(kg) ??11/04/2023:?101.6 ??11/02/2023:?102.7 ??10/31/2023:?103.1 Weight?Post?(kg) ??11/04/2023:?99.2 ??11/02/2023:?99.4 ??10/31/2023:?99.9 PWV?(kg) ??11/04/2023:?0.7 ??11/02/2023:?0.9 ??10/31/2023:?1.4 UF?Rate?(mL/kg/hr) ??11/04/2023:?6 ??11/02/2023:?8.1 ??10/31/2023:?7.7 ADEQUACY?ASSESSMENT spKt/V,?URR ??10/31/2023:?7.46,?97.0 ??10/03/2023:?1.88,?79.0 ??09/05/2023:?1.28,?64.0 ACCESS?ASSESSMENT ??Access?Type:?AVFistula ??Access?SubType:?Standard ??Access?Status:?Active?(In?Use)?-?09/14/2017 ??Access?Location:?Left?Forearm ??Created:?04/13/2017 Flow ??10/05/2023:?1427 ??09/07/2023:?1112 ??08/03/2023:?841 ANEMIA?ASSESSMENT HGB,?TSAT ??10/31/2023:?9.1,?37.0 ??10/24/2023:?9.2,?- ??10/17/2023:?10.0,?- ?? Ferritin ??10/31/2023:?1275.0 ??10/10/2023:?1162.0 ??09/05/2023:?732.0 Mircera,?IVP?(mcg) ??11/04/2023:?75 ??10/21/2023:?60 ??08/26/2023:?75 Iron?Sucrose?(Venofer)?(mg) ??11/04/2023:?50 ??10/28/2023:?50 ??10/21/2023:?50 BMM?ASSESSMENT PTH,?Intact ??10/31/2023:?449.0 ??10/03/2023:?459.0 ??09/05/2023:?512.0 ?? Calcium,?Phosphorus ??10/31/2023:?8.5,?7.3 ??10/24/2023:?8.5,?- ??10/17/2023:?8.4,?- Vitamin?D?(Calcitriol)?Oral?(mcg) ??11/04/2023:?0.75 ??11/02/2023:?0.75 ??10/31/2023:?0.75 NUTRITION?ASSESSMENT Potassium,?Albumin ??10/31/2023:?4.9,?4.3 ??10/10/2023:?5.8,?- ??10/03/2023:?-,?3.9 ?? eNPCR ??10/31/2023:?1.62 ??10/03/2023:?1.06 ??09/05/2023:?1.06 DIAGNOSIS Chief?Complaint:?N18.6?End?stage?renal?disease Patient?data?updated?11/07/2023?at?1:19?PM Signed?By:?Susan,?Nettie,?SCHOOL SPEECH THERAPIST??on?11/07/2023?1:19:47 PM END OF DOCUMENT
--- OUTSIDE RECORDS SUMMARY | 2023-12-28 16:36 | XMS_ITS ---
Author Name Too Morgan Address [address] [place] [id number] Phone [phone] Organization [facility] e, NA DOCUMENT DISCLAIMER Multiple document versions may exist, please be sure you review the latest version. The information in the [facility] Progress Note Document represents a providers documented clinical note containing certain health and medical information. It may not contain the complete medical history for the patient and should be independently verified. The represented time in the document is Eastern Time PROVIDER ROUNDING NOTE COMPREHENSIVE Patient:?SINDI?FERNANDA,?1960,?62y,?M Dialysis?Location:?[facility] Attending?Pulp Screen Operator:?Too?Eddie Service?Date:?11/24/2022 Service?Provider:?Too?Eddie,? I?met?face?to?face?with?the?patient?today. OVERVIEW The?patient?presented?with?ESRD?on?dialysis Primary?cause?of?renal?failure:?Type?2?diabetes?mellitus&#16 0;with?diabetic?chronic?kidney?disease Comments:?11/22/22?-?Stable?treatment?with?no?complaints?or acute?issues.? 11/17?no?cramps?with?increase?EDW? Medications?and?labs?reviewed. LAST?HOSPITALIZATION Discharge?Diagnosis:?R78.81?Bacteremia Admission?Date?08/15/22 Discharge?Date?08/18/22 DIALYSIS?PRESCRIPTION ??IHD?3x?Week?Start?date:?11/10/22 ??Dialyzer:?180NRe?Optiflux ??BFR:?450 ??DFR:?Manual?500 ??Potassium:?2.0 ??Sodium:?137 ??EDW:?98 ??Duration:?4:00 ??Calcium:?2.5 ??Bicarb:?35 ??Rx?updated?on:?11/08/2022 TREATMENT?ASSESSMENT Blood?pressure?controlled.?No?changes?indicated.? BP?Stand?Pre ??11/22/2022:?188/90 ??11/19/2022:?164/81 ??11/17/2022:?199/92 BP?Sit?Pre ??11/22/2022:?160/78 ??11/19/2022:?175/84 ??11/17/2022:?147/67 BP?Stand?Post ??11/22/2022:?110/55 ??11/19/2022:?121/53 ??11/17/2022:?109/45 BP?Sit?Post ??11/22/2022:?141/64 ??11/19/2022:?131/60 ??11/17/2022:?153/66 Tx?Duration ??11/22/2022:?4:14 ??11/19/2022:?3:52 ??11/17/2022:?4:01 Missed?Treatments 0?-?last?30?days 0?-?last?60?days FLUID?ASSESSMENT Fluid?status?acceptable.?Interdialytic?weight?gain?acceptable.?No ?changes?indicated.? EDW?(kg) ??11/22/2022:?98.0 ??11/19/2022:?98.0 ??11/17/2022:?98.0 Weight?Pre?(kg) ??11/22/2022:?100.9 ??11/19/2022:?100.5 ??11/17/2022:?100.9 Weight?Post?(kg) ??11/22/2022:?98.0 ??11/19/2022:?97.9 ??11/17/2022:?97.8 PWV?(kg) ??11/22/2022:?0.0 ??11/19/2022:?-0.1 ??11/17/2022:?-0.2 UF?Rate?(mL/kg/hr) ??11/22/2022:?7 ??11/19/2022:?6.9 ??11/17/2022:?7.9 ADEQUACY?ASSESSMENT Adequacy?target?met.?Prescription?compliance?acceptable.?No?changes?indicated.? spKt/V,?URR ??11/03/2022:?1.47,?72.0 ??10/04/2022:?1.62,?74.0 ??09/22/2022:?1.27,?67.0 ACCESS?ASSESSMENT ??Access?Type:?AVFistula ??Access?SubType:?Standard ??Access?Status:?Active?(In?Use)?-?09/14/2017 ??Access?Location:?Left?Forearm ??Created:?04/13/2017 Flow ??09/02/2022:?903 ??08/05/2022:?950 ??07/01/2022:?1348 Vascular?access?reviewed.?Current?access?is?permanent?and?functioning?well. ANEMIA?ASSESSMENT HGB?at?goal.?Iron?parameters?acceptable.?MICHEL?dose?adequate.& #160;No?changes?indicated.? HGB,?TSAT ??11/15/2022:?10.2,?- ??11/08/2022:?10.7,?- ??11/03/2022:?11.3,?38.0 ?? Ferritin ??11/03/2022:?1068.0 ??10/04/2022:?1211.0 ??09/22/2022:?1113.0 Mircera,?IVP?(mcg) ??11/12/2022:?75 ??10/15/2022:?75 ??09/18/2022:?30 Iron?Sucrose?(Venofer)?(mg) ??11/19/2022:?50 ??11/12/2022:?50 ??10/01/2022:?50 BMM?ASSESSMENT PTH?controlled.?Calcium?controlled.?Phosphorus?elevated.?BMM?meds ?adherence?acceptable.?Counseled?pt?on?meds?adherence.? Phosphorus,?Calcium ??11/15/2022:?-,?8.5 ??11/08/2022:?-,?8.5 ??11/03/2022:?6.5,?8.4 ?? PTH,?Intact ??11/03/2022:?413.0 ??10/04/2022:?524.0 ??09/22/2022:?528.0 Vitamin?D?(Calcitriol)?Oral?(mcg) ??11/22/2022:?0.50 ??11/19/2022:?0.50 ??11/17/2022:?0.50 NUTRITION?ASSESSMENT Potassium?controlled.?Albumin?controlled.?No?changes?indicated.? Albumin,?Potassium ??11/03/2022:?4.4,?4.8 ??10/04/2022:?3.9,?4.2 ??09/22/2022:?4.2,?4.5 ?? eNPCR ??11/03/2022:?0.98 ??10/04/2022:?0.94 ??08/31/2022:?0.9 DIAGNOSIS Chief?Complaint:?N18.6?End?stage?renal?disease Patient?data?updated?11/24/2022?at?10:11?AM Signed?By:?Eddie,?Too,???on?11/24/2022?10:16:12 AM END OF DOCUMENT
--- OUTSIDE RECORDS SUMMARY | 2023-12-28 16:36 | XMS_ITS | Encounter Summary ---
[place] [address] Care Team Providers Care Electric Meter Repairer Helper Name Role Phone Kimani Leger MD Primary Care Provider [phone] Encounter Details Date Type Department Care Team (Late st Contact Info) Description 09/20/2023 Telephone Nephrology [place] [address] Lian Card MD [facility] [place] [address] Social History Tobacco Use Types Packs/Day Years [...] encounter Miscellaneous Notes * Telephone Encounter - Lian Card MD - 09/20/2023 7:37 PM EDT S: Called by OSH ED for K of 7.5. Patient received shift therpay and lokelma one hour ago and had repeat K of 6.5. The patient is primarily in the OSH ED for diarrhea. A+P: Discussed with Dr. Stokes. Would prefer the patient to stay overnight in the ER and have checkson K+. Would benefit from more shift therapy and lokelma. He is encouraged to go to his dialysis session on Tuesday after staying in the ED till tomorrow AM. documented in this encounter Plan of Treatment Not on file documented as of this encounter Visit Diagnoses Not on filedocumented in this encounter Care Teams Electric Meter Repairer Helper Relationship Specialty Start Date End Date Kimani Leger MD [address] [place] [address] PCP - General Family Medicine 02/10/21 documented as of this encounter
--- OUTSIDE RECORDS SUMMARY | 2023-12-28 16:36 | XMS_ITS | Encounter Summary ---
[place] [address] Care Team Providers Care Special Education Resource Teacher Name Role Phone Kimani Leger MD Primary Care Provider [phone] Encounter Details Date Type Department Care Team (Late st Contact Info) Description 01/18/2022 1:30 PM EDT [place] [address] Eliot Rivers MD [facility] [address] [place] [address] Johanna Green [place] [address] Anesthesia Record Procedure Summary Procedure Name Responsible Anesthesiologist Anesthesia Start Time Anesthesia Stop Time FISTULAGRAM Events No events on file. Meds * Agents No agents on file. * Blood No blood administrations on file. Lines, Drains, and Airways Type Details Placement Removal Hemodialysis AV Access Device - Single Lumen 10/20/18; 1343; fistula; forearm, left; hemodialysis 10/20/18 1343 by Chantale Jennings RN documented in this encounter Social History [...] of this encounter OR Notes * Anesthesia Preprocedure Evaluation - Eliot Rivers MD - 01/17/2022 4:18 PM EDT Images from the original note were not included. Pre-Anesthesia Evaluation for: Maurice Rudolph a 61 [...] AV Fistula Evaluations 06/17/2020 Kimani Larson MD [facility] INTERVENTIONL RAD ??? IR DIALYSIS ACCESS - AV FISTULA EVALUATIONS 11/04/2020 IR Dialysis Access - AV Fistula Evaluations 11/04/2020 Kimani Larson MD [facility] INTERVENTIONL RAD ??? PERIPHERAL IRIDOTOMY 04/06/2012 OD Swendris ??? PRO EXTRACAPSULAR CATARACT RMVL INSERTION IO LENS PROSTH CPLX WO ECP 07/18/2012 ??? PRO EXTRACAPSULAR CATARACT RMVL INSERTION IO LENS PROSTH W/O ECP 11/29/2012 CATARACT EXTRACTION, EXTRACAPSULAR, W/ LENS INSERTION performed by Erasmo Bajwa MD at [facility] OSC ? ? PRO REPAIR COMPLEX RETINA DETACH VITRECTOMY & MEMB PEEL 04/03/2012, 04/03/12 REPAIR COMPLEX RETINAL DETACHMENT, W/ VITRECTOMY, MEMBRANE PEELING performed by Matteo Diane MD at [facility] MAIN OR ? ? PRO REPAIR COMPLEX RETINA DETACH VITRECTOMY & MEMB PEEL 07/31/2012 REPAIR COMPLEX RETINAL DETACHMENT, W/ VITRECTOMY, MEMBRANE PEELING performed by Matteo Diane MD at [facility] MAIN OR ? ? PRO REPAIR COMPLEX RETINA DETACH VITRECTOMY & MEMB PEEL 01/08/2013 REPAIR COMPLEX RETINAL DETACHMENT, W/ VITRECTOMY, MEMBRANE PEELING performed by Matteo Diane MD at [facility] MAIN OR ??? PRO TX EXTENSIVE RETINOPATHY, [...] Physical Exam: Preprocedure Vitals Current as of 01/17/22 1618 No BP, pulse, respiration, SpO2, or temperature recorded. 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 Chart and labs reviewed ?? Allergy to mirtazapine Echo 2019 showed EF 60% and no wma or HD sig valvular dz Assessment/Plan: ASA 3 MAC/IV Sedation; routine monitors Region - Other Informed Consent: Anesthesia Screening documented in this encounter Plan of Treatment Not on file documented as of this encounter Visit Diagnoses Not on filedocumented in this encounter Care Teams Special Education Resource Teacher Relationship Specialty Start Date End Date Kimani Leger MD [address] [place] [address] PCP - General Family Medicine 02/10/21 documented as of this encounter
--- OUTSIDE RECORDS SUMMARY | 2023-12-28 16:36 | XMS_ITS ---
Author Name Susan, Nettie Address [address] [place] [address] Phone [phone] Organization [facility] e, NA DOCUMENT DISCLAIMER Multiple document versions may exist, please be sure you review the latest version. The information in the [facility] Emergency Department Progress Note Document represents a providers documented clinical note containing certain health and medical information. It may not contain the complete medical history for the patient and should be independently verified. The represented time in the document is Eastern Time PROVIDER ROUNDING NOTE BASIC Patient:?SINDI?FERNANDA,?1960,?63y,?M Dialysis?Location:?[facility] Attending?Washer Machine:?Too?Eddie Service?Date:?10/10/2023 Service?Provider:?Nettie?Susan,?PASSENGER ELEVATOR OPERATOR I?met?face?to?face?with?the?patient?today. OVERVIEW The?patient?presented?with?ESRD?on?dialysis Primary?cause?of?renal?failure:?Type?2?diabetes?mellitus&#16 0;with?diabetic?chronic?kidney?disease Comments:?10/10/23-?stable?treatment,?complains?of?diarrhea?today, ?took?loperamide.?denies?chest?pain,?SOB,?NV,?bleeding? or?bruising.?AVF-?no?issues.? ?10/03/23?-?Feeling?well,?denies?N/V/D,?SOB.?Stable?treat ments.?AVF?functioning?well.?Reaching?EDW. 08/29/23?-?Stable?dialysis?treatment.?AVF?functioning?well.?Reaching?EDW. 08/25?overall?feeling?ok LAST?HOSPITALIZATION Discharge?Diagnosis:?R78.81?Bacteremia Admission?Date?08/15/22 Discharge?Date?08/18/22 DIALYSIS?PRESCRIPTION ??IHD?3x?Week?Start?date:?09/28/23 ??Dialyzer:?180NRe?Optiflux ??BFR:?450 ??DFR:?Manual?800 ??Potassium:?2.0 ??Sodium:?137 ??EDW:?98.5 ??Duration:?4:00 ??Calcium:?2.5 ??Bicarb:?35 ??Rx?updated?on:?09/27/2023 TREATMENT?ASSESSMENT BP?Stand?Pre ??10/07/2023:?140/64 ??10/05/2023:?193/82 ??10/03/2023:?186/87 BP?Sit?Pre ??10/07/2023:?146/80 ??10/05/2023:?184/85 ??10/03/2023:?164/82 BP?Stand?Post ??10/07/2023:?134/51 ??10/05/2023:?134/80 ??10/03/2023:?174/84 BP?Sit?Post ??10/07/2023:?124/53 ??10/05/2023:?140/79 ??10/03/2023:?158/84 Tx?Duration ??10/07/2023:?3:58 ??10/05/2023:?4:00 ??10/03/2023:?4:03 Missed?Treatments 1?-?last?30?days 2?-?last?60?days 5/20?-?recent FLUID?ASSESSMENT EDW?(kg) ??10/07/2023:?98.5 ??10/05/2023:?98.5 ??10/03/2023:?98.5 Weight?Pre?(kg) ??10/07/2023:?101.7 ??10/05/2023:?102.9 ??10/03/2023:?103.3 Weight?Post?(kg) ??10/07/2023:?98.2 ??10/05/2023:?99.3 ??10/03/2023:?100.0 PWV?(kg) ??10/07/2023:?-0.3 ??10/05/2023:?0.8 ??10/03/2023:?1.5 UF?Rate?(mL/kg/hr) ??10/07/2023:?9 ??10/05/2023:?9.1 ??10/03/2023:?8.1 ADEQUACY?ASSESSMENT spKt/V,?URR ??10/03/2023:?1.88,?79.0 ??09/05/2023:?1.28,?64.0 ??08/01/2023:?1.92,?80.0 ACCESS?ASSESSMENT ??Access?Type:?AVFistula ??Access?SubType:?Standard ??Access?Status:?Active?(In?Use)?-?09/14/2017 ??Access?Location:?Left?Forearm ??Created:?04/13/2017 Flow ??10/05/2023:?1427 ??09/07/2023:?1112 ??08/03/2023:?841 ANEMIA?ASSESSMENT HGB ??10/03/2023:?10.3 ??09/26/2023:?11.4 ??09/21/2023:?10.8 ?? Ferritin ??09/05/2023:?732.0 ??08/01/2023:?1221.0 ??07/04/2023:?1234.0 Mircera,?IVP?(mcg) ??08/26/2023:?75 ??08/12/2023:?75 ??07/29/2023:?75 Iron?Sucrose?(Venofer)?(mg) ??10/07/2023:?50 ??09/28/2023:?100 ??09/26/2023:?100 BMM?ASSESSMENT PTH,?Intact ??10/03/2023:?459.0 ??09/05/2023:?512.0 ??08/01/2023:?411.0 ?? Calcium ??09/26/2023:?7.9 ??09/21/2023:?8.3 ??09/12/2023:?8.3 Vitamin?D?(Calcitriol)?Oral?(mcg) ??10/07/2023:?0.75 ??10/05/2023:?0.75 ??10/03/2023:?0.75 NUTRITION?ASSESSMENT Potassium,?Albumin ??10/03/2023:?-,?3.9 ??09/26/2023:?5.1,?- ??09/05/2023:?5.5,?4.1 ?? eNPCR ??10/03/2023:?1.06 ??09/05/2023:?1.06 ??08/01/2023:?1.08 DIAGNOSIS Chief?Complaint:?N18.6?End?stage?renal?disease Patient?data?updated?10/10/2023?at?9:14?AM Signed?By:?Susan,?Nettie,?PASSENGER ELEVATOR OPERATOR??on?10/10/2023?9:15:47 AM END OF DOCUMENT
--- OUTSIDE RECORDS SUMMARY | 2023-12-28 16:36 | XMS_ITS | Encounter Summary ---
[place] [address] Care Team Providers Care Print Room Worker Name Role Phone Jarad Keller DANIKA Primary Care Provider [phone] Encounter Details Date Type Department Care Team (Late st Contact Info) Description 11/27/2020 Telephone [place] [address] Sherie Mccallum, [facility] [place] [address] Social History Tobacco Use Types Packs/Day Years [...] encounter Miscellaneous Notes * Telephone Encounter - Sherie Mccallum, RN - 11/27/2020 12:03 PM EDT Called pt to check on status of weight loss and HgBA1C. Left message for him to call dept back. Will await return call. documented in this encounter Plan of Treatment Not on file documented as of this encounter Visit Diagnoses Not on filedocumented in this encounter Care Teams Print Room Worker Relationship Specialty Start Date End Date Jarad Keller DNP PCP - General Family Medicine 06/05/18 02/09/21 documented as of this encounter
--- OUTSIDE RECORDS SUMMARY | 2023-12-28 16:36 | XMS_ITS ---
Author Name Simi Mcfadden Address [address] [place] [address] Phone [phone] Organization [facility] e, NA DOCUMENT DISCLAIMER The information in the [facility] Dialysis Provider Note Document represents a providersdocumented clinical note containing certain health and medical information. It may not contain the complete medical history for the patient and should be independently verified. The represented time in the document is Eastern Time PROVIDER ROUNDING NOTE BASIC Patient:?SINDI?FERNANDA,?1960,?62y,?M Dialysis?Location:?[facility] Attending?Inspector Wire Rope:?Cynthia?Buzz Service?Date:?04/08/2022 Service?Provider:?Simi?Lesa,?SALVAGER I?met?face?to?face?with?the?patient?today. OVERVIEW The?patient?presented?with?ESRD?on?dialysis Primary?cause?of?renal?failure:?Type?2?diabetes?mellitus&#16 0;with?diabetic?chronic?kidney?disease Comments:?04/08/22?-?Increase?calcitriol?to?0.5mcg?for?low&#1 60;Ca?and?elevated?PTH.?Stable?treatment. 04/01/22?-?Stable?treatment,?no?complaints.??Feeling?well on?off?days. 03/16/22?-?Ending?treatment?below?EDW?with?stable?BP.?& #160;Will?adjust?EDW.??Stable?treatment?today?with?no?complaints. 03/09?Overall?stable/no?acute?issues Medications?and?labs?reviewed. DIALYSIS?PRESCRIPTION ??IHD?3x?Week?Start?date:?03/30/22 ??Dialyzer:?180NRe?Optiflux ??BFR:?450 ??DFR:?Manual?500 ??Potassium:?2.0 ??Sodium:?137 ??EDW:?100.8 ??Duration:?4:00 ??Calcium:?2.5 ??Bicarb:?35 ??Rx?updated?on:?03/30/2022 TREATMENT?ASSESSMENT BP?Stand?Pre ??04/06/2022:?131/62 ??04/03/2022:?149/70 ??2022:?142/62 BP?Sit?Pre ??04/06/2022:?131/65 ??04/03/2022:?137/68 ??2022:?165/79 BP?Stand?Post ??04/06/2022:?144/62 ??04/03/2022:?140/77 ??2022:?153/71 BP?Sit?Post ??04/06/2022:?131/74 ??04/03/2022:?123/81 ??2022:?138/89 Tx?Duration ??04/06/2022:?4:01 ??04/03/2022:?4:03 ??2022:?4:02 Missed?Treatments 0?-?last?30?days 0?-?last?60?days FLUID?ASSESSMENT EDW?(kg) ??04/06/2022:?100.8 ??04/03/2022:?100.8 ??2022:?100.8 Weight?Pre?(kg) ??04/06/2022:?104.7 ??04/03/2022:?103.9 ??2022:?103.9 Weight?Post?(kg) ??04/06/2022:?100.3 ??04/03/2022:?99.6 ??2022:?100.4 PWV?(kg) ??04/06/2022:?-0.5 ??04/03/2022:?-1.2 ??2022:?-0.4 UF?Rate?(mL/kg/hr) ??04/06/2022:?10.9 ??04/03/2022:?10.7 ??2022:?8.6 ADEQUACY?ASSESSMENT spKt/V,?URR ??03/16/2022:?1.54,?73.0 ??02/09/2022:?1.55,?74.0 ??01/12/2022:?1.57,?73.0 ACCESS?ASSESSMENT ??Access?Type:?AVFistula ??Access?SubType:?Standard ??Access?Status:?Active?(In?Use)?-?09/14/2017 ??Access?Location:?Left?Forearm ??Created:?04/13/2017 Flow ??02/11/2022:?1418 ??01/28/2022:?1931 ??01/14/2022:?722 ANEMIA?ASSESSMENT HGB,?TSAT ??04/06/2022:?10.4,?31.0 ??03/30/2022:?9.9,?- ??03/23/2022:?9.9,?- ?? Ferritin ??04/06/2022:?823.0 ??03/16/2022:?880.0 ??02/09/2022:?1165.0 Mircera,?IVP?(mcg) ??03/27/2022:?50 ??03/13/2022:?50 ??02/27/2022:?30 Iron?Sucrose?(Venofer)?(mg) ??01/30/2022:?50 ??01/23/2022:?50 ??01/16/2022:?50 BMM?ASSESSMENT Phosphorus,?Calcium ??04/06/2022:?5.2,?8.4 ??03/30/2022:?-,?8.5 ??03/23/2022:?-,?8.4 ?? PTH,?Intact ??04/06/2022:?447.0 ??03/16/2022:?365.0 ??02/09/2022:?275.0 Vitamin?D?(Calcitriol)?Oral?(mcg) ??04/06/2022:?0.25 ??04/03/2022:?0.25 ??2022:?0.25 NUTRITION?ASSESSMENT Albumin,?Potassium ??04/06/2022:?4.1,?5.0 ??03/16/2022:?4.1,?5.0 ??02/09/2022:?4.0,?4.6 ?? eNPCR ??03/16/2022:?0.88 ??02/09/2022:?1.0 ??01/12/2022:?0.81 DIAGNOSIS Chief?Complaint:?[email or web address]?End?stage?renal?disease Patient?data?updated?04/08/2022?at?10:36?AM Signed?By:?Lesa,?Simi,?SALVAGER??on?04/08/2022?1:42:51?PM END OF DOCUMENT
--- OUTSIDE RECORDS SUMMARY | 2023-12-28 16:36 | XMS_ITS | Encounter Summary ---
[place] [address] Care Team Providers Care Traffic Coordinator Name Role Phone Jarad Keller DANIKA Primary Care Provider [phone] Encounter Details Date Type Department Care Team (Late st Contact Info) Description 12/08/2020 Telephone [place] [address] Sherie Mccallum, [facility] [place] [address] Social History Tobacco Use Types Packs/Day Years [...] Telephone Encounter - Sherie Mccallum, RN - 12/08/2020 2:27 PM EDT Called pt to check on status of weight loss and HgBA1C. Left message for him to call dept back. Will await return call. documented in this encounter Plan of Treatment Not on file documented as of this encounter Visit Diagnoses Not on filedocumented in this encounter Care Teams Traffic Coordinator Relationship Specialty Start Date End Date Jarad Keller DNP PCP - General Family Medicine 06/05/18 02/09/21 documented as of this encounter
--- OUTSIDE RECORDS SUMMARY | 2023-12-28 16:36 | XMS_ITS | Encounter Summary ---
Author Organization [place] [address] Care Team Providers Care Training Systems Officer Name Role Phone Kimani Leger MD Primary Care Provider Reason for Visit * Reason Comments PDR * Consultation (Routine) - Closed Specialty Diagnoses / Procedures Referred By Puneet hallman Referred To Contact Ophthalmology Diagnoses Type 2 diabetes mellitus with unspecified diabetic retinopathy without macular edema Kimani Leger MD [address] [place] [address] [place] [address] Harmeet Arvizu MD [facility] [place] [address] Referral ID Status Reason Start Date Expiration Date V isits Requested Visits Authorized [id number] Closed Consult, Test & Treat Connection Center PCP Updated and/or Approved 01/28/2021 07/28/2021 6 6 Encounter Details Date Type Department Care Team (Latest Contact Info) Description 06/08/2021 12:15 PM EST Office [place] [address] Harmeet Arvizu MD [facility] OPHTHALMOLOG[place] [address] 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; Blindness of right eye, unspecified left eye visual impairment category Social History Tobacco Use Types Packs/Day Years [...] as of this encounter Progress Notes * Harmeet Arvizu MD - 06/08/2021 12:15 PM EST ASSESSMENT: 1. 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 Blindness of right eye, unspecified left eye visual impairment category Visual Acuity Visual Acuity (Snellen - Linear) Right Left Dist cc LP no projection 20/150 Dist ph cc NI Near cc 20/100 Correction: Glasses Imaging/Findings today 06/08/21: OD: chronic TRD from PDR. OS: stable PDR s/p PRP OCT: mild DME OS but notable subfoveal scarring. Previous FA: Macula OS appears perfused. No leakage from NV PLAN: Stable advanced PDR. Given his monocular status, I would still like him to have a formal neuro- ophthalmology opinion regarding if there is optic nerve or cortical component to vision loss OS. Patient recalls vision got worse after fall and possible TBI. Follow up retina in about 1 year for DFE/OCT/fundus photos.Eylea PRN. Follow up with neuro-oph next available for optic nerve eval and to see if there is a cortical component to vision loss after previous brain injury. Sooner PRN Harmeet Arvizu MD documented in this encounter Plan of Treatment Not on file documented as of this encounter Procedures Procedure Name Priority Date/Time Associated Diagnosis Comments FUNDUS PHOTOS - OU- BOTH EYES Routine 06/08/2021 1:47 PM EST 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 Blindness of right eye, unspecified left eye visual impairment category OCT RETINA - OU - BOTH EYES Routine 06/08/2021 1:46 PM EST 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 Blindness of right eye, unspecified left eye visual impairment category documented in this encounter Results * Fundus Photos - OU - Both Eyes (06/08/2021 1:47 PM EST) Anatomical Region Laterality Modality Other Narrative 06/08/2021 1:47 PM EST Right Eye Progression has been stable. Disc findings include pallor. Macula findings include retinal pigment epithelium abnormalities. Left Eye Progression has been stable. Disc findings include normal observations. Macula findings include retinal pigment epithelium abnormalities. Vessel findings include normal observations. Notes OD: poor quality photo due to media. Chronic retinal exudates and scarring from advanced PDR under oil OS: involuted PDR with extensive full PRP. No active NV. Nerve appears sharp. Macula flat Harmeet Arvizu MD OPHTHALMOLOGY SERVIC ES ORDERABLES * OCT Retina - OU - Both Eyes (06/08/2021 1:46 PM EST) Anatomical Region Laterality Modality Other Narrative 06/08/2021 1:46 PM EST Right Eye Quality was poor. Left Eye Quality was good. Progression has improved. Findings include intraretinal fluid, subretinal scarring. Notes OD chronic TRD OS subfoveal scarring, mild DME parafoveal improved overall since October 2019 Harmeet Arvizu MD OPHTHALMOLOGY SERVIC ES ORDERABLES documented in this encounter Visit Diagnoses Diagnosis 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 Blindness of right eye, unspecified left eye visual impairment category documented in this encounter Care Teams Training Systems Officer Relationship Specialty Start Date End Date Kimani Leger MD [address] [place] [address] PCP - General Family Medicine 02/10/21 documented as of this encounter
--- OUTSIDE RECORDS SUMMARY | 2023-12-28 16:36 | XMS_ITS ---
Author Name Too Morgan Address [address] [place] [address] Phone [phone] Organization [facility] e, NA DOCUMENT DISCLAIMER Multiple document versions may exist, please be sure you review the latest version. The information in the [facility] Progress Note Document represents a providers documented clinical note containing certain health and medical information. It may not contain the complete medical history for the patient and should be independently verified. The represented time in the document is Eastern Time PROVIDER ROUNDING NOTE COMPREHENSIVE Patient:?SINDI?FERNANDA,?1960,?63y,?M Dialysis?Location:?[facility] Attending?Engineered Wood Designer:?Too?Eddie Service?Date:?10/24/2023 Service?Provider:?Too?Eddie,? I?met?face?to?face?with?the?patient?today. 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 LAST?HOSPITALIZATION Discharge?Diagnosis:?R78.81?Bacteremia Admission?Date?08/15/22 Discharge?Date?08/18/22 DIALYSIS?PRESCRIPTION ??IHD?3x?Week?Start?date:?09/28/23 ??Dialyzer:?180NRe?Optiflux ??BFR:?450 ??DFR:?Manual?800 ??Potassium:?2.0 ??Sodium:?137 ??EDW:?98.5 ??Duration:?4:00 ??Calcium:?2.5 ??Bicarb:?35 ??Rx?updated?on:?09/27/2023 TREATMENT?ASSESSMENT Blood?pressure?controlled.?No?changes?indicated.? BP?Stand?Pre ??10/21/2023:?127/47 ??10/19/2023:?127/61 ??10/17/2023:?124/31 BP?Sit?Pre ??10/21/2023:?149/59 ??10/19/2023:?119/56 ??10/17/2023:?166/69 BP?Stand?Post ??10/21/2023:?122/53 ??10/19/2023:?135/78 ??10/17/2023:?135/59 BP?Sit?Post ??10/21/2023:?128/62 ??10/19/2023:?127/56 ??10/17/2023:?147/78 Tx?Duration ??10/21/2023:?3:42 ??10/19/2023:?4:02 ??10/17/2023:?4:03 Missed?Treatments 0?-?last?30?days 2?-?last?60?days 5/20?-?recent FLUID?ASSESSMENT Fluid?status?acceptable.?Interdialytic?weight?gain?not?acceptable .?Optimal?weight?discussed.? EDW?(kg) ??10/21/2023:?98.5 ??10/19/2023:?98.5 ??10/17/2023:?98.5 Weight?Pre?(kg) ??10/21/2023:?102.2 ??10/19/2023:?102.4 ??10/17/2023:?102.8 Weight?Post?(kg) ??10/21/2023:?98.5 ??10/19/2023:?99.3 ??10/17/2023:?99.5 PWV?(kg) ??10/21/2023:?0.0 ??10/19/2023:?0.8 ??10/17/2023:?1.0 UF?Rate?(mL/kg/hr) ??10/21/2023:?10.2 ??10/19/2023:?7.7 ??10/17/2023:?8.2 ADEQUACY?ASSESSMENT Adequacy?target?met.?Prescription?compliance?acceptable.? spKt/V,?URR ??10/03/2023:?1.88,?79.0 ??09/05/2023:?1.28,?64.0 ??08/01/2023:?1.92,?80.0 ACCESS?ASSESSMENT ??Access?Type:?AVFistula ??Access?SubType:?Standard ??Access?Status:?Active?(In?Use)?-?09/14/2017 ??Access?Location:?Left?Forearm ??Created:?04/13/2017 Flow ??10/05/2023:?1427 ??09/07/2023:?1112 ??08/03/2023:?841 Vascular?access?reviewed.?Current?access?is?permanent?and?functioning?well. ANEMIA?ASSESSMENT HGB?at?goal.?Iron?parameters?acceptable.?MICHEL?dose?adequate. HGB,?TSAT ??10/17/2023:?10.0,?- ??10/10/2023:?10.4,?48.0 ??10/03/2023:?10.3,?- ?? Ferritin ??10/10/2023:?1162.0 ??09/05/2023:?732.0 ??08/01/2023:?1221.0 Mircera,?IVP?(mcg) ??10/21/2023:?60 ??08/26/2023:?75 ??08/12/2023:?75 Iron?Sucrose?(Venofer)?(mg) ??10/21/2023:?50 ??10/14/2023:?50 ??10/07/2023:?50 BMM?ASSESSMENT PTH?controlled.?Calcium?controlled.?Phosphorus?controlled.?No?naomi nges?indicated.? PTH,?Intact ??10/03/2023:?459.0 ??09/05/2023:?512.0 ??08/01/2023:?411.0 ?? Calcium,?Phosphorus ??10/17/2023:?8.4,?- ??10/10/2023:?8.6,?5.2 ??09/26/2023:?7.9,?- Vitamin?D?(Calcitriol)?Oral?(mcg) ??10/21/2023:?0.75 ??10/19/2023:?0.75 ??10/17/2023:?0.75 NUTRITION?ASSESSMENT Potassium?above?goal.?Albumin?controlled.?Diet?reviewed?with patient.? Potassium,?Albumin ??10/10/2023:?5.8,?- ??10/03/2023:?-,?3.9 ??09/26/2023:?5.1,?- ?? eNPCR ??10/03/2023:?1.06 ??09/05/2023:?1.06 ??08/01/2023:?1.08 PHYSICAL?EXAM Exam?Performed.?Vital?Signs?Reviewed.?Lungs?-?Clear. DIAGNOSIS Chief?Complaint:?[email or web address]?End?stage?renal?disease Patient?data?updated?10/24/2023?at?10:01?AM Signed?By:?Eddie,?Too,???on?10/24/2023?10:05:02 AM END OF DOCUMENT
--- OUTSIDE RECORDS SUMMARY | 2023-12-28 16:36 | XMS_ITS | Encounter Summary ---
Author Organization [facility] [place] [place] [address] Care Team Providers Care Retail Banking Manager Name Role Phone Kimani Leger MD Primary Care Provider [phone] Encounter Details Date Type Department Care Team (Late st Contact Info) Description 02/25/2023 [place] [phone] Too Morgan MD [facility] [place] [address] Social History Tobacco Use Types Packs/Day Years [...] on filedocumented in this encounter Care Teams Retail Banking Manager Relationship Specialty Start Date End Date Kimani Leger MD [address] [place] [address] PCP - General Family Medicine 02/10/21 documented as of this encounter
--- OUTSIDE RECORDS SUMMARY | 2023-12-28 16:36 | XMS_ITS | Encounter Summary ---
[place] [address] Care Team Providers Care Air Hoist Operator Name Role Phone Jarad Keller DNP Primary Care Provider [phone] Encounter Details Date Type Department Care Team (Late st Contact Info) Description 01/29/2021 Telephone [place] [address] Cherelle Colvin RN Social History Tobacco Use Types Packs/Day Years [...] encounter Miscellaneous Notes * Telephone Encounter - Cherelle Colvin RN - 01/29/2021 9:32 AM EDT I spoke with [facility]. They confirmed Maurice's mailing address as the certified letter we sent in November was returned as unable to deliver. The dialysis unit states that his HbA1C is down to 7.4. However, his current dry weight is 105.5 kg which is up from May 2020. Dialysis will ask himto call us with updates. documented in this encounter Plan of Treatment Not on file documented as of this encounter Visit Diagnoses Not on filedocumented in this encounter Care Teams Air Hoist Operator Relationship Specialty Start Date End Date Jarad Keller DNP PCP - General Family Medicine 06/05/18 02/09/21 documented as of this encounter
--- OUTSIDE RECORDS SUMMARY | 2023-12-28 16:37 | XMS_ITS | Encounter Summary ---
Author Organization [facility] [place] [address] Care Team Providers Care Ground Support Equipment Assembler Name Role Phone Jarad Keller DNP Primary Care Provider [phone] Encounter Details Date Type Department Care Team (Late st Contact Info) Description 06/17/2020 2:30 PM EST - 06/17/2020 4:30 [place] [phone] Ceasar Gonzalez MD [facility] [place] [address] FISTULAGRAM Social History Tobacco Use Types Packs/Day [...] Sign Reading Time Taken Comments Blood Pressure 144/94 06/17/2020 4:17 PM EST Pulse 95 06/17/2020 4:17 PM EST Temperature 36 ??C (96.8 ??F) 06/17/2020 4:17 PM EST Respiratory Rate 16 06/17/2020 4:17 PM EST Oxygen Saturation 95% 06/17/2020 4:17 PM EST Inhaled Oxygen Concentration - - Weight 99.8 kg (220 lb) 06/17/2020 2:00 PM EST Height - - Body Mass Index 37.18 02/06/2020 10:15 AM EDT documented in this encounter Medications at Time [...] as of this encounter Progress Notes * Cherelle Salguero, RN - 06/17/2020 4:43 PM EST DC instructions reviewed with pt. No c/o pain. Left hand full sensation, left arm dry. documented in this encounter Plan of Treatment Not on file documented as of this encounter Procedures Procedure Name Priority Date/Time Associated Diagnosis Comments POCT GLUCOSE Routine 06/17/2020 4:34 PM EST FISTULAGRAM 06/17/2020 2:36 PM EST ESRD (end stage renal disease) POCT GLUCOSE Routine 06/17/2020 2:04 PM EST HC HEMOGRAM Routine 06/17/2020 1:48 PM EST ESRD on dialysis Type 2 diabetes mellitus with ESRD (end-stage renal disease) HC VENIPUNCTURE Routine 06/17/2020 1:48 PM EST ESRD on dialysis Type 2 diabetes mellitus with ESRD (end-stage renal disease) documented in this encounter Results * (ABNORMAL) POCT Glucose (06/17/2020 4:34 PM EST) Glucose, POC 238(H) 65 - 199 mg/dL [facility] Comment: Supplemental ranges: <140 mg/dL before meals <180 mg/dL all other times of the day Blood specimen (specimen) 06/17/2020 4:34 PM EST 06/17/2020 4:34 PM EST Ceasar Gonzalez MD POINT OF CARE TEST O RDERABLES [facility] [place] [address] * (ABNORMAL) POCT Glucose (06/17/2020 2:04 PM EST) [facility] Glucose, POC 243(H) 65 - 199 mg/dL [facility] Comment: Supplemental ranges: <140 mg/dL before meals <180 mg/dL all other times of the day Blood specimen (specimen) 06/17/2020 2:04 PM EST 06/17/2020 2:04 PM EST Ceasar Gonzalez MD POINT OF CARE TEST O FREDERICKERAROSIE Performing Organization Address [facility] Co de Phone Number [facility] [place] [address] * (ABNORMAL) Hemogram (06/17/2020 1:48 PM EST) [facility] White Blood Cell 7.0 4.0 - 9.5 x10(3)/mc L [facility] Red Blood Cell 4.09(L) 4.58 - 5.54 x10(6)/mc L [facility] Hemoglobin 12.9(L) 13.7 - 16.5 gm/dL [facility] Hematocrit 37.3(L) 40.5 - 48.5 % [facility] Mean Cell Volume 91.2 82.9 - 93.1 fL [facility] Mean Cell Hemoglobin 31.5 27.5 - 32.1 pg [facility] Mean Cell Hemoglobin Concentration 34.6 32.0 - 35.7 gm/dL [facility] Platelet 142(L) 145 - 357 x10(3)/mc L [facility] RDW Standard Deviation 43.9 36.0 - 45.0 [facility] RDW coefficient of variation 13.1 11.4 - 13.8 % [facility] Mean Platelet Volume 10.0 7.6 - 12.9 fL [facility] NRBC% auto 0.0 % [facility] NRBC Absolute 0.000 0.000 - 0.000 x10(3)/mc L [facility] Blood specimen (specimen) 06/17/2020 1:48 PM EST 06/17/2020 2:00 PM EST Narrative Resulting Agency Comment Spec In Lab Too Morgan MD HEMATOLOGY ORDERABL ES [facility] [place] [address] * (ABNORMAL) Basic Metabolic Panel (non-fasting) (06/17/2020 1:48 PM EST) Glucose 258(H) 65 - 199 mg/dL [facility] Comment:Diabetes: >=200 mg/d L plus symptoms Blood Urea Nitrogen 15 10 - 20 mg/dL [facility] Creatinine 2.44(H) 0.80 - 1.50 mg/dL [facility] Sodium 137 135 - 145 mmol/L [facility] Potassium 4.0 3.5 - 5.0 mmol/L [facility] Comment: Please note: ??Patients with WBC >100,000 may have falsely elevated Potassium levels. ??For accurate Potassium quantification in these patients send serum separator tube (gold top) for subsequent determinations. ??Contact the Clinical Chemistry Laboratory if there are any questions. Chloride 93(L) 98 - 107 mmol/L [facility] Carbon Dioxide 35(H) 22 - 31 mmol/L [facility] Anion Gap 9 5 - 15 mmol/L [facility] Calcium 9.6 8.5 - 10.5 mg/dL [facility] Est Glomerular Filtration Rate 28(L) >=60 mL/min/1. 73 m?? [facility] Comment: This patient? s estimated [...] Lab Too Morgan MD CHEMISTRY ORDERABLE S [facility] [place] [address] documented in this encounter Visit Diagnoses Not on filedocumented in this encounter Administered Medications Inactive Administered Medications - up to 3 most recent administrations Medication Order MAR Action Action Date Dose Rate Site acetaminophen (Tylenol) tablet 1,000 mg 1,000 mg, Oral, ONCE, 1 dose, On Tue06/17/20 at 1415, Administer with SIP of H2O only., Day of Surgery (Day of Procedure), Routine Given 06/17/2020 2:20 PM EST 1,000 mg fentaNYL (pf) (50 mcg/mL) multi-dose injection 12.5-25 mcg 12.5-25 mcg, Intravenous, EVERY 5 MIN PRN, Starting on Tue06/17/20 at 1558, Until Tue06/17/20 at 1852, Pain, Give 12.5 mcg every 5 minutes PRN for mild to moderate pain (1-5) Give 25 mcg every 5 minutes PRN for moderate to severe pain (6-10). Hold for respiratory rate less than 10 per minute. Maximum dose 250 mcg over one hour. If ordered with hydromorphone or morphine, give hydromorphone or morphine first and use fentanyl for breakthrough pain., Routine lactated ringers infusion 1,000 mL, at 100 mL/hr, Intravenous, CONTINUOUS, Starting on Tue06/17/20 at 1415, Until Tue06/17/20 at 1642, Day of Surgery (Day of Procedure) New Bag 06/17/2020 2:21 PM EST 1,000 mLs 100 mL/hr documented in this encounter Active and Recently Administered Medications Times are shown in EST. Scheduled Medication Order 06/15/2020 06/16/2020 06/17/2020 acetaminophen (Tylenol) tablet 1,000 mg (COMPLETED) 1,000 mg, Oral, ONCE, 1 dose, On 06/17/20 at 1415, Administer with SIP of H2O only., Day of Surgery (Day of Procedure), Routine 1420 (Given - Provid er: Francoise Foster RN) Continuous Medication Order 06/15/2020 06/16/2020 06/17/2020 lactated ringers infusion (CANCELED) 1,000 mL, at 100 mL/hr, Intravenous, CONTINUOUS, Starting on Tue06/17/20 at 1415, Until Tue06/17/20 at 1642, Day of Surgery (Day of Procedure) 1421 (New Bag - Prov ider: Francoise Foster RN) PRN Medication Order 06/15/2020 06/16/2020 06/17/2020 fentaNYL (pf) (50 mcg/mL) multi-dose injection 12.5-25 mcg 12.5-25 mcg, Intravenous, EVERY 5 MIN PRN, Starting on Tue06/17/20 at 1558, Until Tue06/17/20 at 1852, Pain, Give 12.5 mcg every 5 minutes PRN for mild to moderate pain (1-5) Give 25 mcg every 5 minutes PRN for moderate to severe pain (6-10). Hold for respiratory rate less than 10 per minute. Maximum dose 250 mcg over one hour. If ordered with hydromorphone or morphine, give hydromorphone or morphine first and use fentanyl for breakthrough pain., Routine documented in this encounter Care Teams Ground Support Equipment Assembler Relationship Specialty Start Date End Date Jarad Keller DNP PCP - General Family Medicine 06/05/18 02/09/21 documented as of this encounter
--- OUTSIDE RECORDS SUMMARY | 2023-12-28 16:37 | XMS_ITS | Encounter Summary ---
Author Organization [facility] [place] [address] Care Team Providers Care Ferryboat Operator Cable Name Role Phone Jarad Keller DANIKA Primary Care Provider [phone] Reason for Visit * Consultation (Routine) - Closed Specialty Diagnoses / Procedures Referred By Puneet hallman Referred To Contact Transplant Diagnoses ESRD (end stage renal disease) Procedures Txp Too Lynn MD [facility] [place] [address] Young Watts MD [facility] [place] [address] Referral ID Status Reason Start Date Expiration Date V isits Requested Visits Authorized [id number] Closed Consult, Test & Treat 12/18/2019 12/17/2020 1 1 Encounter Details Date Type Department Care Team (Latest Contact Info) Description 02/06/2020 9:00 AM EDT Clinical Support [place] [address] Young Watts MD [facility] DR TRANSPLANT [place] [address] Pre-transplant evaluation for kidney transplant; ESRD (end stage renal disease) Social History [...] as of this encounter Progress Notes * Sherie Mccallum RN - 02/06/2020 9:00 AM EDT Patient: Maurice Rudolph Additional Learners: N/A Maurice attended our 120 min multi disciplinary educational session in which we covered every aspect of transplantation including but not limited to: ?? Comparison to dialysis Types of transplanted kidney organs: DDKtx, LRD and LURDKTx; DCD, DBD, etc. Wait list KDPI/EPTS Wait list management Active vs. Status 7/Inactive Risks - rejection, CV, malignancies, infections, bone and mineral metabolism Benefits - longevity Outcomes -local vs. SRTR data; rates of tx and type, wait list mortality, graft failure and patientmortality Programmatic specialities Medications and their side effects Evaluation and listing CMS/UNOS governmental regulations Surgery Complications Hospital stay Discharge and follow up Recipient expectations Maurice received our green recipient folder containing: ?? Welcome letter from Dr. Watts A copy of the presentation Most recent center-specific SRTR data UNOS Talking about Transplantation booklets pamphlets including: -Kidney Allocation -Q&A for Transplant Candates about Multiple Listing and Waiting Time Transfer -Frequently Asked Questions about Kidney Transplant Evaluation and Listing -Facts and Figures -Living Donation: Information You Need to Know -What Every Patient Needs to Know Maurice was given many opportunities to ask questions to all members of the transplant team throughoutthe process. Maurice acknowledges understanding of the presented materials, and reports that he will ask any questions that arise. documented in this encounter Plan of Treatment Scheduled Referrals Name Type Priority Associated Diagnoses Order Schedule Referral to Transplant Services Outpatient Referral Routine ESRD (end stage renal disease) Ordered: 12/18/2019 documented as of this encounter Visit Diagnoses Diagnosis Pre-transplant evaluation for kidney transplant Other specified pre-operative examination ESRD (end stage renal disease) End stage renal disease documented in this encounter Care Teams Ferryboat Operator Cable Relationship Specialty Start Date End Date Jarad Keller DNP PCP - General Family Medicine 06/05/18 02/09/21 documented as of this encounter
--- OUTSIDE RECORDS SUMMARY | 2023-12-28 16:37 | XMS_ITS | Encounter Summary ---
Author Organization [facility] [place] [address] Care Team Providers Care General Ii Farmworker Name Role Phone Jarad Keller DNP Primary Care Provider [phone] Encounter Details Date Type Department Care Team (Latest Contact Info) Description 11/04/2020 1:16 PM EDT - 11/04/2020 5:15 PM EDT Hospital Encounter [place] [id number] Ceasar Gonzalez MD [facility] [place] [address] Discharge Disposition: Home Social History Tobacco Use [...] Sign Reading Time Taken Comments Blood Pressure 135/55 11/04/2020 4:45 PM EDT Pulse 95 11/04/2020 2:07 PM EDT Temperature 36.2 ??C (97.2 ??F) 11/04/2020 4:05 PM ED T Respiratory Rate 16 11/04/2020 4:45 PM EDT Oxygen Saturation 95% 11/04/2020 4:45 PM EDT Inhaled Oxygen Concentration - - Weight 103.5 kg (228 lb 2.8 oz) 11/04/2020 2:07 PM EDT Height 162.6 cm (5' 4) 11/04/2020 2:07 PM EDT Body Mass Index 39.17 11/04/2020 2:07 PM EDT documented in this encounter Discharge Instructions * Discharge Instructions* Ania Morrow RN - 11/04/2020 4:35 PM EDT [facility] Vascular and Interventional Radiology Discharge Instructions after [...] is during regular office hours, please call [phone]. If it is after regular office hours, or on weekends or holidays, please call [phone] and ask to speak to the [employer] Floorperson educational recruiter for Interventional Radiology. You have received medication [...] * POCT Glucose (11/04/2020 1:59 PM EDT) Glucose, POC 172 65 - 199 mg/dL [facility] Comment: Supplemental ranges: <140 mg/dL before meals <180 mg/dL all other times of the day Blood 11/04/2020 1:59 PM EDT 11/04/2020 1:59 PM EDT Ceasar Gonzalez MD POINT OF CARE TEST O RDERABLES Performing Organization Address [facility] Co de Phone Number [facility] [place] [address] * Potassium (11/04/2020 1:34 PM EDT) Potassium 3.9 3.5 - 5.0 mmol/L [facility] Comment: Please note: ??Patients with WBC [...] Vanessa MD CHEMISTRY ORDERABLES Performing Organization Address [facility] Co de Phone Number [facility] [place] [address] documented in this encounter Visit Diagnoses Not on filedocumented in this encounter Active and Recently Administered Medications Care Teams General Ii Farmworker Relationship Specialty Start Date End Date Jarad Keller DNP PCP - General Family Medicine 06/05/18 02/09/21 documented as of this encounter
--- OUTSIDE RECORDS SUMMARY | 2023-12-28 16:37 | XMS_ITS | Encounter Summary ---
Author Organization [facility] [place] [address] Care Team Providers Care Scientific Programmer Name Role Phone Jarad Keller DNP Primary Care Provider [phone] Encounter Details Date Type Department Care Team (Latest Contact Info) Description 06/17/2020 1:28 PM EST - 06/17/2020 4:52 PM [facility] Hospital Encounter [place] [id number] Ceasar Gonzalez MD [facility] [place] [address] ESRD on dialysis; Type 2 diabetes mellitus with ESRD (end-stage renal disease) Discharge Disposition: Home Social History [...] Sign Reading Time Taken Comments Blood Pressure 154/85 06/17/2020 4:31 PM EST Pulse 95 06/17/2020 4:17 PM EST Temperature 36 ??C (96.8 ??F) 06/17/2020 4:17 PM EST Respiratory Rate 16 06/17/2020 4:31 PM EST Oxygen Saturation 93% 06/17/2020 4:31 PM EST Inhaled Oxygen Concentration - - [...] (ABNORMAL) POCT Glucose (06/17/2020 4:34 PM EST) [facility] Glucose, POC 238(H) 65 - 199 mg/dL [facility] Comment: Supplemental ranges: <140 mg/dL before meals <180 mg/dL all other times of the day Blood specimen (specimen) 06/17/2020 4:34 PM EST 06/17/2020 4:34 PM EST Ceasar Gonzalez MD POINT OF CARE TEST O RDERAROSIE Performing Organization Address City/[facility]/ZIP Co de Phone Number [facility] [place] [address] * (ABNORMAL) POCT Glucose (06/17/2020 2:04 PM EST) Pathologist [facility] Glucose, POC 243(H) 65 - 199 mg/dL [facility] Comment: Supplemental ranges: <140 mg/dL before meals <180 mg/dL all other times of the day Blood specimen (specimen) 06/17/2020 2:04 PM EST 06/17/2020 2:04 PM EST Ceasar Gonzalez MD POINT OF CARE TEST O ANTONETTE Performing Organization Address [facility] Co de Phone Number [facility] [place] [address] * (ABNORMAL) Hemogram (06/17/2020 1:48 PM EST) [facility] White Blood Cell 7.0 4.0 - 9.5 x10(3)/mc L [facility] Red Blood Cell 4.09(L) 4.58 - 5.54 x10(6)/mc L [facility] Hemoglobin 12.9(L) 13.7 - 16.5 gm/dL [facility] Hematocrit 37.3(L) 40.5 - 48.5 % [facility] Mean Cell Volume 91.2 82.9 - 93.1 fL [facility] Mean Cell Hemoglobin 31.5 27.5 - 32.1 pg [facility] Mean Cell Hemoglobin Concentration 34.6 32.0 - 35.7 gm/dL [facility] Platelet 142(L) 145 - 357 x10(3)/mc L [facility] RDW Standard Deviation 43.9 36.0 - 45.0 fL [facility] RDW coefficient of variation 13.1 11.4 - 13.8 % [facility] Mean Platelet Volume 10.0 7.6 - 12.9 fL [facility] NRBC% auto 0.0 % [facility] NRBC Absolute 0.000 0.000 - 0.000 x10(3)/mc L [facility] Blood specimen (specimen) 06/17/2020 1:48 PM EST 06/17/2020 2:00 PM EST Narrative Resulting Agency Comment Spec In Lab Too Morgan MD HEMATOLOGY ORDERABL ES [facility] [place] [address] * (ABNORMAL) Basic Metabolic Panel (non-fasting) (06/17/2020 1:48 PM EST) Glucose 258(H) 65 - 199 mg/dL [facility] Comment:Diabetes: >=200 mg/d L plus symptoms Blood Urea Nitrogen 15 10 - 20 mg/dL [facility] Creatinine 2.44(H) 0.80 - 1.50 mg/dL [facility] Sodium 137 135 - 145 mmol/L [facility] Potassium 4.0 3.5 - 5.0 mmol/L [facility] Comment: Please note: ??Patients with WBC >100,000 may have falsely elevated Potassium levels. ??For accurate Potassium quantification in these patients send serum separator tube (gold top) for subsequent determinations. ??Contact the Clinical Chemistry Laboratory if there are any questions. Chloride 93(L) 98 - 107 mmol/L [facility] Carbon Dioxide 35(H) 22 - 31 mmol/L [facility] Anion Gap 9 5 - 15 mmol/L [facility] Calcium 9.6 8.5 - 10.5 mg/dL [facility] Est Glomerular Filtration Rate 28(L) >=60 mL/min/1. 73 m?? [facility] Comment: This patient? s estimated glomerular [...] Lab Too Morgan MD CHEMISTRY ORDERABLE S Performing Organization Address City/State/[facility] [place] [address] documented in this encounter Visit Diagnoses Diagnosis ESRD on dialysis End stage renal disease Type 2 diabetes mellitus with ESRD (end-stage renal disease) Type II or unspecified type diabetes mellitus with renal manifestations, not stated as uncontrolled documented in this encounter Administered Medications Inactive Administered [...] Routine documented in this encounter Care Teams Scientific Programmer Relationship Specialty Start Date End Date Jarad Keller DNP PCP - General Family Medicine 06/05/18 02/09/21 documented as of this encounter
--- OUTSIDE RECORDS SUMMARY | 2023-12-28 16:37 | XMS_ITS | Encounter Summary ---
Author Organization [facility] [place] [address] Care Team Providers Care Train Gate Attendant Name Role Phone Jarad Keller DNP Primary Care Provider [phone] Encounter Details Date Type Department Care Team (Late st Contact Info) Description 06/17/2020 2:36 PM [place] [address] Merlin Joyce MD [facility] [address] [place] [address] Danuta Dye, REFINERY OPERATOR HELPER CRU[facility] [address] [facility] 3B-1 [place] [address] Anesthesia Record Procedure Summary Procedure Name Responsible Anesthesiologist Anesthesia Start Time Anesthesia Stop Time FISTULAGRAM (Left) Merlin Joyce MD 06/17/20 1436 1616 Events Date Time Event Comment 06/17/2020 1423 1436 AN Verify 1436 Start 1436 An Start Data 1441 Anesthesia Ready 1503 Procedure Start 1557 Quick Note Procedure finis hed. Holding pressure & placing dressings 1602 an stop data 1616 Recovery or ICU Handoff Halima ent care was transferred to the destination unit staff after review of the patient's medical history, current anesthetic/surgical status and plan, according to the Provider Handoff Checklist. 1616 Stop Meds Name Total IV Lidocaine 20 mg Propofol INF 229.54 mg Dexmedetomidine 20 mcg Lactated Ringers 200 mL * Agents Name O2 Air N2O * Blood No blood administrations on file. Lines, Drains, and Airways Type Details Placement Removal Hemodialysis AV Access Device - Single Lumen 10/20/18; 1343; fistula; forearm, left; hemodialysis 10/20/18 1343 by Chantale Jennings RN Incision 04/03/12; 1013; eye; 12/28/21 (LDA cleanup utility RA#[id number]); 1715 (LDA cleanup utility RA#[id number]) 04/03/12 1013 by Era Braden RN 12/28/21 1715 by Morgan Wong Incision 07/18/12; eye; 12/28 (LDA cleanup utility RA#[id number]); 1715 (LDA cleanup utility RA#[id number]) 07/18/12 0000 by Giovana Lake 12/28/21 1715 by Morgan Wong Incision 07/31/12; eye; 12/28 (LDA cleanup utility RA#[id number]); 1715 (LDA cleanup utility RA#[id number]) 07/31/12 0000 by Era Braden RN 12/28/21 1715 by Morgan Wong Incision 11/29/12; 1223; eye; 12/28/21 (LDA cleanup utility RA#[id number]); 1715 (LDA cleanup utility RA#[id number]) 11/29/12 1223 by Joanna Kirk RN 12/28/21 1715 by Morgan Wong Incision 01/08/13; eye; 12/28 (LDA cleanup utility RA#[id number]); 1715 (LDA cleanup utility RA#[id number]) 01/08/13 0000 by Lynda Thompson RN 12/28/21 1715 by Morgan Wong Rash/Skin Irritation 10/21/18; 2147; joselito k; 12/28/21 (LDA cleanup utility RA#[id number]); 1715 (LDA cleanup utility RA#[id number]) 10/21/18 2147 by Ivelisse Tovar 12/28/21 1715 by Morgan Wong Wound 07/30/19; 0240; arm; abrasion; 12/28/21 (LDA cleanup utility RA#[id number]); 1715 (LDA cleanup utility RA#[id number]) 07/30/19 0240 by Cynthia Pedroza RN 12/28/21 1715 by Morgan Wong Wound 07/30/19; 0241; knee ; abrasion; 12/28/21 (LDA cleanup utility RA#[id number]); 1715 (LDA cleanup utility RA#[id number]) 07/30/19 0241 by Cynthia Pedroza RN 12/28/21 1715 by Morgan Wong Wound 07/30/19; 0241; knee ; abrasion; 12/28/21 (LDA cleanup utility RA#[id number]); 1715 (LDA cleanup utility RA#[id number]) 07/30/19 0241 by Cynthia Pedroza RN 12/28/21 1715 by Morgan Wong (RETIRED) Peripheral IV Line - Single Lumen 06/17/20; 1418; metacarpal vein (top of hand), right; [id number] catheter system; 20 gauge; bob neville; distraction; 06/17/20; 1643 06/17/20 1418 by Francoise Foster RN 06/17/20 1643 by Cherelle Salguero RN documented in this encounter Social History [...] OR Notes * Anesthesia Postprocedure Evaluation - Bob Neville MD - 06/17/2020 4:18 PM EST Department of Anesthesiology Post-procedure Note Patient: Maurice Rudolph Procedure Summary Date: 06/17/20 Room / Location: [facility] INTERVENTIONAL RADIOLOGY 2 / [facility] Anesthesia Start: 1436 Anesthesia Stop: 1616 Procedure: FISTULAGRAM (Left ) Diagnosis: (ESRD (end stage renal disease)) Surgeons: Ceasar Gonzalez MD Responsible Provider: Merlin Joyce MD Anesthesia Type: general ASA Status: 3 All Anesthesia Providers: Anesthesiologist: Merlin Joyce MD School Office Manager: Bob Neville MD Vitals Value Taken Time BP Temp Pulse Resp SpO2 Pain Level Patient Location: PACU/[facility] Level of Consciousness: Awake and Alert Pain Management: Satisfactory Analgesia PONV: None Cardiovascular Status: At Baseline Respiratory Status: At Baseline Postoperative Fluid Status: Intravascular EUvolemia Possible Anesthetic Complications: NONE apparent at time of evaluation Final Primary Anesthesia Type: General (The anesthetic type performed was the same as planned.) Comments: * Anesthesia Preprocedure Evaluation - Merlin Joyce MD - 06/16/2020 1:08 PM EST Images from the original note were not included. Pre-Anesthesia Evaluation for: Maurice Rudolph a 60 y.o. male. Procedure(s): FISTULAGRAM Patient Active Problem List Diagnosis ??? ESRD on dialysis ??? Closed fracture of right proximal humerus ??? Closed nondisplaced fracture of shaft of right clavicle ??? Right scapula fracture ??? Fall ??? Pre-transplant evaluation for ESRD (end stage renal disease) ??? Class 2 severe obesity due to excess calories with serious comorbidity and body mass index (BMI) of 39.0 to 39.9 in adult ??? Pseudophakia of both eyes ??? PCO (posterior capsular opacification) ??? Eye pain ??? Ocular hypertension of right eye. Postop ??? Ischemic diabetic maculopathy ??? Type 2 diabetes mellitus with ESRD (end-stage renal disease) ??? Hyperopia ??? Acute angle-closure glaucoma of right eye ??? HTN (hypertension) ??? GERD (gastroesophageal reflux disease) ??? Proliferative diabetic retinopathy, both eyes Past Medical History: Diagnosis Date ??? Acute [...] Eylea OS for DME per NNB ??? PERIPHERAL IRIDOTOMY 04/06/2012 OD [facility] ??? PRO EXTRACAPSULAR CATARACT RMVL INSERTION IO LENS PROSTH CPLX WO ECP 07/18/2012 ??? PRO EXTRACAPSULAR CATARACT RMVL INSERTION IO LENS PROSTH W/O ECP 11/29/2012 CATARACT EXTRACTION, EXTRACAPSULAR, W/ LENS INSERTION performed by Erasmo Bajwa MD at [facility] OSC ? ? PRO REPAIR COMPLEX RETINA DETACH VITRECTOMY & MEMB PEEL 04/03/2012, 04/03/12 REPAIR COMPLEX RETINAL DETACHMENT, W/ VITRECTOMY, MEMBRANE PEELING performed by Matteo Diane MD at [facility] MAIN OR ? ? PRO REPAIR COMPLEX RETINA DETACH VITRECTOMY & MEMB PEEL 07/31/2012 REPAIR COMPLEX RETINAL DETACHMENT, W/ VITRECTOMY, MEMBRANE PEELING performed by Matteo Diane MD at [facility] MAIN OR ? ? PRO REPAIR COMPLEX RETINA DETACH VITRECTOMY & MEMB PEEL 01/08/2013 REPAIR COMPLEX RETINAL DETACHMENT, W/ VITRECTOMY, MEMBRANE PEELING performed by Matteo Diane MD at [facility] MAIN OR ??? PRO TX EXTENSIVE RETINOPATHY, [...] home medications have been reviewed. Physical Exam: No data found. There is no height or weight on file to calculate BMI. Airway Assessment: Mallampati: II Neck ROM: full Cardiovascular Assessment: Rate: normal Pulmonary Assessment: unlabored breathing Dental Assessment: Misc Assessment: IV access: Peripheral line Anesthesia Plan: ASA 3 general, 60 yo male with HTN, GERD, IDDM with retinopathy (recetn A1c >12), difficult intubation in past (MAC 3, Mil 3 --> suggest videolaryngoscopy, had questionable laryngospasm after extubation requiring reintubation in 04/12; last intubation with cmac successful on first attempt), here for fistulogram of AV fistula NPO Allergy to mirtazapine Echo 2020 showed EF 60% and no wma or HD sig valvular dz Plan MAC w/GA backup Region - Other Informed Consent: Anesthetic plan and risks discussed with patient. Use of blood products discussed with patient who consented to blood products. Plan discussed with attending. PAT Clinic Note documented in this encounter Plan of Treatment Not on file documented as of this encounter Visit Diagnoses Not on filedocumented in this encounter Administered Medications Inactive Administered Medications - up to 3 most recent administrations Medication Order MAR Action Action Date Dose Rate Site dexmedetomidine (Precedex) (4 mcg/mL) bolus injection (Anesthsia) Intravenous, PRN, Starting on Tue06/17/20 at 1440, Until Tue06/17/20 at 1618, Anesthesia Intra-op, Routine Given 06/17/2020 2:44 PM EST 8 mcg Given 06/17/2020 2:40 PM EST 12 mcg lactated ringers infusion Intravenous, CONTINUOUS PRN, Starting on Tue06/17/20 at 1440, Until 06/17/20 at 1618, Anesthesia Intra-op New Bag 06/17/2020 2:40 PM EST lidocaine (pf) (Xylocaine) (20 mg/mL) 2% injection syringe Intravenous, PRN, Starting on Tue06/17/20 at 1448, Until 06/17/20 at 1618, Anesthesia Intra-op, Routine Given 06/17/2020 2:48 PM EST 20 mg propofoL (Diprivan) infusion Intravenous, CONTINUOUS PRN, Starting on Tue06/17/20 at 1440, Until 06/17/20 at 1618, Anesthesia Intra-op, Routine Rate/Dose Change 06/17/2020 3:14 PM EST 20 mcg/kg/min 11.976 mL/hr Rate/Dose Change 06/17/2020 3:09 PM EST 10 mcg/kg/min 5.98 8 mL/hr Rate/Dose Change 06/17/2020 2:51 PM EST 30 mcg/kg/min 17.9 64 mL/hr documented in this encounter Care Teams Train Gate Attendant Relationship Specialty Start Date End Date Jarad Keller DNP PCP - General Family Medicine 06/05/18 02/09/21 documented as of this encounter
--- OUTSIDE RECORDS SUMMARY | 2023-12-28 16:37 | XMS_ITS | Encounter Summary ---
[place] [address] Care Team Providers Care Bulk Tank Car Unloader Name Role Phone Jarad Keller DNP Primary Care Provider [phone] Encounter Details Date Type Department Care Team (Late st Contact Info) Description 05/16/2020 Telephone Solid [place] [id number] [facility] [place] [address] Social History Tobacco Use Types Packs/Day Years [...] encounter Miscellaneous Notes * Telephone Encounter - Cheryl Presley, FREDERICK - 05/16/2020 10:41 AM EST Followed up with Maurice today over the phone regarding weight loss progress. During auto service writer's initial encounter with pt in January 2020 nutrition-related goals for transplant discussed, including weightloss given obese class II and tighter blood glucose control. Prior to speaking with Maurice this auto service writer obtained most recent EDW from dialysis unit. Pt's current EDW 102.5kg / BMI 38.05kg/m^2; a 0.5kg decrease from January 2020 (insignificant). Per dialysis unit pt's most recent HgbA1c as of 04/15/20 increased to 12.3% from 10.4% in January 2020. Also spoke with pt's dietitian at dialysis (Debra) who is aware of nutrition-related goals established for transplant. Debra states that pt continues to be interested in transplant, however hems and makayla about needing to lose weight; exhibiting minimal motivation and readiness for lifestyle change. In addition,Debra states that pt does not wish to pursue bariatric surgery option as previously presented by [facility] team as weight loss option. Pt confirmed this stating bariatric surgery route is not for me. Reiterated need for tighter weight and blood glucose control pre-transplant. Discussed ongoing initial, modest weight loss goal of ~20# (10%) within 6 mo to achieve BMI <35.0kg/m^2 and tighter blood glucose control. Maurice acknowledged this, agreeing initial weight loss goal realistic. Pt reports dietary intake has not differed much from diet reported to auto service writer in January. Pt states that he has made a greater effort to attempt breakfast meal (eggs) and has continued to limit CHO intake at meals, reducing his intake of pasta and bread. Suggested pt continue to aim for lean proteinfood and fruit and vegetable intake at meals; pt states he continues to eat chicken and fish primarily (reducing hot dog intake). Maurice attributes his elevated A1c to losing coverage on his insulin pump - pt states he is working with scrap drop crane operator to get another insulin pump to aid in tighter blood glucose control. In addition to pt's efforts in dietary changes to promote weight loss, he also states he continues to engage in activity on a regular basis using mini elliptical while watching tv, stationary arm and leg exercises. Pt is not able to recall how many minutes he regularly engages in activity - requested pt track his activity daily to assure he is engaging in at least 30 minutes physical activity daily. Pt acknowledged this stating, this shouldn't be a problem. Pt states his balance issues continue to be barrier to engaging in vigorous activity. Discussed ongoing initial modest weight loss goal of ~20# (10%) within 6 mo with pt and dialysis RD. Informed Maurice auto service writer to check in with him in ~3 mo; with a weight loss goal achieved at this time of 5% / 10#. Maurice agreeable to plan. Informed Maurice auto service writer available at anytime in the meantime to further assist him with nutrition-related goals for transplant. Thank you, Cheryl Presley RD documented in this encounter Plan of Treatment Not on file documented as of this encounter Visit Diagnoses Not on filedocumented in this encounter Care Teams Bulk Tank Car Unloader Relationship Specialty Start Date End Date Jarad Keller DNP PCP - General Family Medicine 06/05/18 02/09/21 documented as of this encounter
--- OUTSIDE RECORDS SUMMARY | 2023-12-28 16:37 | XMS_ITS | Encounter Summary ---
[place] [address] Care Team Providers Care Superintendent Mechanical Name Role Phone Jarad Keller DNP Primary Care Provider [phone] Encounter Details Date Type Department Care Team (Late st Contact Info) Description 04/22/2020 2:00 PM [facility] Tech [place] [address] Harmeet Arvizu MD [facility] [place] [address] Proliferative diabetic retinopathy of left eye with [...] Progress Notes * Harmeet Arvizu MD - 04/22/2020 2:00 PM EST ASSESSMENT: 1. 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 Blindness of right eye, unspecified left eye visual impairment category Tech-only visit today to check PDR and macula after recent series on injections for DME OS. See previous notes. Visual Acuity Visual Acuity (Snellen - Linear) Right Left Dist sc LP 20/100 -1 Dist ph cc NI Near cc NI 20/60 Imaging/Findings today 05/07/20: OD: chronic TRD from PDR. OS: OCT: poor quality suggesting media opacity likely from cornea. Improved DME but notable subfoveal scarring. Photos: Full PRP. Involuted PDR FA: Macula appears perfused. No leakage from NV PLAN: The recent series of injections has improve the DME, but vision remains about the same. Tech notes mention he is dealing with [place] palsy OS with incomplete lid closure. This is also affecting the vision from poor tear film coverage. Needs to be careful to keep eye well lubricated Given today's imaging, the subfoveal scarring noted on OCT, the possible enlarged ARELIS by FA, could explain the 20/60-20/100 vision left eye. Given his monocular status, I would still like him to have a formal neuro- ophthalmology opinion regarding if there is optic nerve or cortical component to vision loss OS. Patient recalls cortical involvement after fall. Follow up retina in about 3-4 months for DFE/OCT. Possible Eylea for any worsening of DME. Sooner CHRIS Arvizu MD documented in this encounter Plan of Treatment Not on file documented as of this encounter Procedures Procedure Name Priority Date/Time Associated Diagnosis Comments FLUORESCEIN ANGIOGRAPHY - OU - BOTH EYES Routine 05/07/2020 8:08 AM EST 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 OCT RETINA - OU - BOTH EYES Routine 05/07/2020 8:03 AM EST 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 FUNDUS PHOTOS - OU- BOTH EYES Routine 05/07/2020 8:03 AM EST 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 documented in this encounter Results * Fluorescein Angiography - OU - Both Eyes (05/07/2020 8:08 AM EST) Anatomical Region Laterality Modality Other Narrative 05/07/2020 8:08 AM EST Right Eye Progression has no prior data. Left Eye Early phase findings include normal observations. Mid/Late phase findings include normal observations. Choroidal neovascularization is not present. Notes OD: unable OS: macula appears perfused. There may be an enlarged ARELIS. There is mild staining and leakage within macular corresponding to DME. ??There is no active NV from PDR in the periphery Harmeet Arvizu MD OPHTHALMOLOGY SERVIC ES ORDERABLES * OCT Retina - OU - Both Eyes (05/07/2020 8:03 AM EST) Anatomical Region Laterality Modality Other Narrative 05/07/2020 8:03 AM EST Right Eye Quality was poor. Left Eye Quality was good. Progression has improved. Findings include intraretinal fluid, subretinal scarring. Notes OD chronic TRD OS subfoveal scarring, mild DME parafoveal improved overall since October 2019 Harmeet Arvizu MD OPHTHALMOLOGY SERVIC ES ORDERABLES * Fundus Photos - OU - Both Eyes (05/07/2020 8:03 AM EST) Anatomical Region Laterality Modality Other Narrative 05/07/2020 8:03 AM EST Right Eye Progression has no prior data. Disc findings include pallor. Macula findings include retinal pigment epithelium abnormalities. Left Eye Progression has no prior data. Disc findings include normal observations. Macula findings [...] category documented in this encounter Care Teams Superintendent Mechanical Relationship Specialty Start Date End Date Jarad Keller DNP PCP - General Family Medicine 06/05/18 02/09/21 documented as of this encounter
--- OUTSIDE RECORDS SUMMARY | 2023-12-28 16:37 | XMS_ITS | Encounter Summary ---
[place] [address] Care Team Providers Care Front Desk Specialist Name Role Phone Jarad Keller DNP Primary Care Provider [phone] Encounter Details Date Type Department Care Team (Late st Contact Info) Description 08/27/2020 Telephone Solid [place] [id number] Cheryl Presley RD [facility] [place] [address] Social History Tobacco Use Types Packs/Day Years [...] Telephone Encounter - Cheryl Presley, FREDERICK - 08/27/2020 11:05 AM EDT Attempted to f/u with Maurice over the phone today regarding weight loss progress; a nutrition-relatedgoal previously established for kidney transplantation. This data analyst report writer unable to contact Maurice as mobile number listed in chart not belonging to him. This data analyst report writer obtained pt's 's (Kaye) phone number from dialysis center - number disconnected. Asked dialysis center to inform Maurice tomorrow when he c omes in for dialysis treatment that data analyst report writer attempting to get in touch with him and to give data analyst report writer acall when pt gets a chance. mortuary operations manager agreeable to plan. Thank you, Cheryl Presley RD documented in this encounter Plan of Treatment Not on file documented as of this encounter Visit Diagnoses Not on filedocumented in this encounter Care Teams Front Desk Specialist Relationship Specialty Start Date End Date Jarad Keller DNP PCP - General Family Medicine 06/05/18 02/09/21 documented as of this encounter
--- OUTSIDE RECORDS SUMMARY | 2023-12-28 16:37 | XMS_ITS | Encounter Summary ---
[place] [address] Care Team Providers Care Tenant Relations Coordinator Name Role Phone Jarad Keller DNP Primary Care Provider [phone] Encounter Details Date Type Department Care Team (Late st Contact Info) Description 02/06/2020 11:00 AM EDT Office Visit [place] [address] Cathie Farfan MD [facility] [place] [address] ESRD (end stage renal disease); Encounter for pre-transplant evaluation for kidney transplant Social History Tobacco Use Types Packs/Day Years [...] Sign Reading Time Taken Comments Blood Pressure 151/87 02/06/2020 10:15 AM EDT Pulse 102 02/06/2020 10:15 AM EDT Temperature 36.7 ??C (98.1 ??F) 02/06/2020 10:15 AM E DT Respiratory Rate - - Oxygen Saturation - - Inhaled Oxygen Concentration - - Weight 102.5 kg (226 lb) 02/06/2020 10:15 AM EDT Height 163.8 cm (5' 4.5) 02/06/2020 10:15 AM ED T Body Mass Index 38.19 02/06/2020 10:15 AM EDT documented in this encounter Progress Notes * Cathie Farfan MD - 02/06/2020 11:00 AM EDT Initial Evaluation: Kidney Transplantation Date: 02/06/2020 Patient: Maurice Rudolph Referred by: Dr. Morgan Today I had the opportunity to meet Maurice Rudolph, whom you had referred to me for evaluation for kidney transplant. As you are aware, he is a 59 y.o. male with a past medical history significant for obesity with a BMI of 38, hypertension, type 2 diabetes with complications of diabetic retinopathy, diabetic neuropathy and diabetic nephropathy with resultant end-stage renal disease currently ondialysis. Patient was first noted to have kidney disease roughly 5 years ago when he was admitted for CHF exacerbation. He reports at that time they noted his creatinine was elevated. He ultimately started dialysis in [place] he thinks roughly 4 years ago (he thinks it is different than the start date we have on file). He gets dialysis through left upper extremity AV fistula which she reports is working well without issue. He has not had any issues on the machine. He still makes a small amount of urine roughly 1 cup/day. His kidney disease is from type 2 diabetes. His past medical history is significant for hypertension, type 2 diabetes, diabetic retinopathy, diabetic neuropathy, diabetic nephropathy leading to end- stage renal disease, coronary artery disease requiring open heart surgery with a two-vessel CABG, a recent fall resulting in head trauma (leadingto balance issues), right scapular fracture, right humerus fracture and right clavicle fracture, anxiety, blindness in his right eye and a history of laryngospasm after extubation and a difficult intubation history. Past surgical history is notable for two-vessel CABG for coronary artery disease, right knee surgery as a child, AV fistula creation, eye injections and cataract removal. Allergies: Mirtazapine. Family history: Type 2 diabetes in his mother and father. Social history: Does not drink or smoke. Used to smoke but quit 30 years ago. 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 Since his fall he has been having balance issues and walks with a rolling walker to prevent further falls. He does report that he is able to walk long distances roughly a mile without needing to stop for significant fatigue. He reports he constantly uses floor pedals while a t home for exercise. ECOG Performance Status: 1 Restricted in physically strenuous activity but ambulatory and able tocarry out work of a light or sedentary nature, e.g., light house work, office work The patient has no history of peripheral vascular disease and denies a history of claudication and rest pain symptoms. There is no history of lower extremity ulcers or amputations. The patient has no history of functional or anatomic urologic disorders. There is no history of urinary retention or recurrent urinary tract infections. Blood Type: A Pos Days on dialysis: (Not currently on dialysis) EPTS: 49 at 02/06/2020 10:40 AM Calculated from: Age: 59 years 10 months Has Diabetes No prior solid organ transplants Not on dialysis Past Medical History: Past Medical History: Diagnosis Date ??? 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 Anxiety ??? Arthritis ??? Cataract. Dense with synechiae. Right eye. 06/21/2012 ??? Closed fracture of right proximal humerus [...] current use of insulin Past Surgical History: Past Surgical History: Procedure Laterality Date ??? [...] INSERTION performed by Erasmo Bajwa MD at [facility] ? ? PRO REPAIR COMPLEX RETINA DETACH VITRECTOMY & MEMB PEEL 04/03/2012, 04/03/12 REPAIR COMPLEX RETINAL DETACHMENT, W/ VITRECTOMY, MEMBRANE PEELING performed by Matteo Diane MD at [facility] MAIN OR ? ? PRO REPAIR COMPLEX RETINA DETACH VITRECTOMY & MEMB PEEL 07/31/2012 REPAIR COMPLEX RETINAL DETACHMENT, W/ VITRECTOMY, MEMBRANE PEELING performed by Matteo Diane MD at [facility] MAIN OR ? ? PRO REPAIR COMPLEX RETINA DETACH VITRECTOMY & MEMB PEEL 01/08/2013 REPAIR COMPLEX RETINAL DETACHMENT, W/ VITRECTOMY, MEMBRANE PEELING performed by Matteo Diane MD at [facility] MAIN OR ??? PRO TX EXTENSIVE [...] YAG CAPSULOTOMY 11/15/2013 OS - Dr Bajwa Family History: Family History Problem Relation Age of Onset [...] Neg Hx ??? Heart Disease Neg Hx Social History: Social History Tobacco Use ??? Smoking status: Former Smoker ??? Smokeless tobacco: Never Used ??? Tobacco comment: quit in his 20's Substance Use Topics ??? Alcohol use: No ??? Drug use: No Allergies: Mirtazapine Current Meds: Current Outpatient Medications Medication Sig Dispense Refill ??? mv,iron/folic/D3/om-3/dha/epa (PRORENAL QD ORAL) ProRenal QD oral capsule ??? OneTouch Verio Flex meter [facility] TEST BLOOD GLUCOSE THREE TIMES A DAY ??? calciTRIoL (Rocaltrol) 0.25 mcg Capsule Take 0.75 mcg by mouth. ??? iron sucrose (Venofer) 100 mg iron/5 mL Solution Inject 50 mg into the vein. ??? lidocaine-prilocaine (EMLA) Cream Apply topically. ??? epoetin beta, methoxy peg 50 mcg/0.3 mL Syringe Inject 50 mcg into the vein. ??? NovoLOG Flexpen U-100 Insulin Insulin Pen Inject 6 Units subcutaneously 3 times daily (with meals). ICD 10 Code: E11.65 15 mL 5 ??? Basaglar KwikPen U-100 Insulin 100 unit/mL (3 mL) pen Inject 20 Units subcutaneously daily. ICD10 Code: E11.65 15 mL 5 ??? insulin needles, disposable, 31 gauge x 3/16 Needle Inject 1 each subcutaneously 4 times daily. ICD 10 Code: E11.65 150 each 5 ??? sub-q insulin device, 20 unit (V-GO 20) Device 1 each by [facility].(Non-Drug; Combo Route) route daily. Insulin pump to infuse insulin continuously. Change daily 30 Device 11 ??? acetaminophen (Tylenol) 500 mg Tablet Take 2 tablets by mouth every 6 hours. 30 tablet 1 ??? amLODIPine (Norvasc) 5 mg Tablet Take 1 tablet by mouth daily. 90 tablet 3 ??? epoetin babs-epbx (Retacrit) 10,000 unit/mL Solution Inject 1 mL subcutaneously once as needed in Dialysis. 1 mL ??? heparin, Porcine, 5,000 unit/mL Solution Inject 1 mL subcutaneously every 8 hours. ??? melatonin 3 mg Tablet Take 2 tablets by mouth nightly. ??? sevelamer carbonate (Renvela) 800 mg Tablet Take 1 tablet by mouth 3 times daily (with meals). ??? aspirin 325 mg Tablet Take 1 tablet by mouth daily. 90 tablet 3 ??? camphor-menthol (SARNA) Lotion Apply 1 each topically 3 times daily as needed for Itching (leftLE). 222 mL 0 ??? glucagon, Human Recombinant, 1 mg Recon Soln Use in case of emergency for low blood sugar 1 each 5 ??? blood sugar diagnostic strips Strip Use [...] ??? sertraline (ZOLOFT) 25 mg tablet Take 25 mg by mouth daily. ??? pravastatin (PRAVACHOL) 40 mg Tablet Take 40 mg by mouth daily. No current facility-administered medications for this visit. ROS: A 10 point review of systems was reviewed with the patient with the following pertinent findings: Specifically, the patient denies weight gain or weight loss, fevers or chills. No vision changes. No cough or sore throat. No chest pain or palpitations. No orthopnea. No dyspnea on exertion. Normal appetite. No reflux. No changes in bowel or bladder habits. No nausea or vomiting. No diarrhea or constipation. No dysuria or hematuria. No muscle weakness or joint pains. No new skin lesions or rashes. No numbness or tingling. Physical Exam: BP 151/87 (Patient Position: Sitting) Pulse (!) 102 Temp 36.7 ??C (98.1 ??F) (Oral) Ht 163.8 cm (5' 4.5) Wt 102.5 kg (226 lb) BMI 38.19 kg/m?? Body mass index is 38.19 kg/m??. General: Comfortable. In no apparent distress. Conversant Eyes: EOMI. Sclera anicteric. ENMT: Moist mucous membranes. Neck: Supple. No adenopathy. No thyromegaly. Heart: Regular rate and rhythm. Pulmonary: Breathing comfortably Abdomen: Extremely protuberant, full and difficult to palpate bony landmarks, nontender. No reboundor guarding. Evidence of an umbilical hernia which is nontender. Vascular: Femoral pulses 1+, Pedal pulses 1+, Radial pulses 2+, Fistula/graft excellent thrill Lower extremities: Trace edema. Musculoskeletal: Strength > 5/5 and symmetrical, gait unremarkable. Skin: No jaundice. Without obvious lesion / rash. Nails unremarkable. Labs: Lab Results Component Value Date CREATININE 5.44 (H) 08/03/2019 K 4.3 08/03/2019 GLUCOSE 140 08/03/2019 HCT 29.8 (L) 08/03/2019 WBC 5.9 08/03/2019 PT 12.1 07/29/2019 PTT 34 07/29/2019 INR 1.0 07/29/2019 Cardiac/Vasc/CT: Results for orders placed during the hospital encounter of 07/29/19 Echocardiogram Transthoracic(MH) Narrative Procedure: Transthoracic Echocardiogram Patient: FERNANDA Gurrola DOB(Age): 1960(59y) Med Rec#: [id number] Sex: M Site Loc: [facility] Ht / Wt: 162(cm)/103(kg) Pt. Loc: Adult Floor BSA: 2.06 Study Date: 07/31/2019 Pt. Type: Inpatient Tape: Referring: Aaron Dover Referring: YANELI Reading: Dev Hernandez ([id number]) Decal Decorator: Efraín Heredia Diagnosis: *Unspecified fall, initial encounter (W19.XXXA) Rhythm: Tachycardia BP: 158/78 SUMMARY: 1. Technically difficult study despite use of echo contrast. 2. The left ventricular chamber size is normal. There is normal global left ventricular systolic function. Ejection fraction is estimated to be 60%. There are no left ventricular segmental wall motion abnormalities. 3. Right ventricular chamber size and systolic function are within normal limits. Pulmonary artery hypertension could not be assessed due to inadequate tricuspid regurgitation jet. 4. The atria are not well visualized. 5. There is no hemodynamically significant valve disease. 6. There is mild dilatation of the ascending aorta. 7. See remainder of report for additional findings. 8. There is no prior study for comparison. Findings : Study Quality: Technically limited Left Ventricle: The left ventricular chamber size is normal. Left ventricular wall thickness is normal. There is normal global left ventricular systolic function. Ejection fraction is estimated to be 60%. There are no left ventricular segmental wall motion abnormalities. Left ventricular diastolic function is normal. Doppler assessment is consistent with normal left sided filling pressure. Left Atrium: The left atrium is not well visualized. There is no evidence of a patent foramen ovale by color Doppler. Right Ventricle: Right ventricular chamber size, wall thickness, and systolic function are within normal limits. Pulmonary artery hypertension could not be assessed due to inadequate tricuspid regurgitation jet. Right Atrium: The right atrium is not well visualized. Aortic Valve: The aortic valve is tricuspid. The aortic valve leaflets are mildly thickened. There is aortic annular calcification. There is no evidence of aortic valve stenosis. There is no evidence of aortic regurgitation. Mitral Valve: The mitral valve leaflets are mildly thickened. There is trace mitral regurgitation present. Tricuspid Valve: The tricuspid valve appears normal in structure and function. There is trace tricuspid regurgitation present. Pulmonic Valve: The pulmonic valve appears normal in structure and function. There is trace pulmonic regurgitation present. Pericardium: The pericardium appears normal and there is no evidence of a pericardial effusion. Aorta: The aortic root is normal in size. There is mild dilatation of the ascending aorta. Pulmonary Artery: The main pulmonary artery appears normal. Venous: The inferior vena cava appears normal in size. There is a greater than 50% respiratory change in the inferior vena cava dimension. Misc: There is no hemodynamically significant valve disease. Technically difficult study. See remainder of report for additional findings. Two-dimensional echo, spectral Doppler and color Doppler performed. Optison contrast (one 3 ml vial) was used to enhance endocardial definition. Excess contrast was discarded. Chambers 2D Value Units (Range) IVSd (2D) 1.08 cm LVPWd (2D) 1.05 cm IVS:LVPW ratio (2D) 1.03 ratio RWT (2D) 0.42 ratio RWT PW (2D) 0.41 ratio LVIDd (2D) 5.1 cm LVIDs (2D) 3.74 cm LVIDd (2D) index 2.47 cm/m2 LVIDs (2D) index 1.82 cm/m2 LV FS (2D) 26.55 % EF Teichholz (2D) 51.64 % Ao root diameter (2D3.43 cm (2.1 - 3.6) Ascending Ao 3.72 cm (2 - 3.5) Volumes/Mass Value Units (Range) LV mass (2D) 204.44 g LV mass (2D) index 99.27 g/m2 Diastolic/Systolic Function Value Units (Range) MV E-wave Vmax 1.24 m/sec LV septal e' Vmax 0.11 m/sec LV lateral e' Vmax 0.1 m/sec LV average e' Vmax 0.11 m/sec LV E:e' septal ratio11.27 ratio LV E:e' lateral rati12.4 ratio LV average E:e' rati11.81 ratio Wall Motion: Segment Name Rest Base-Anteroseptal Normal Base-Anterior Normal Base-Anterolateral Normal Base-Posterolateral Normal Base-Inferior Normal Base-Inferoseptal Normal Mid-Anteroseptal Normal Mid-Anterior Normal Mid-Anterolateral Normal Mid-Posterolateral Normal Mid-Inferior Normal Mid-Inferoseptal Normal [place]-Septal Normal [place]-Anterior Normal [place]-Lateral Normal [place]-Inferior Normal [place]-Tip Normal This report has been electronically signed by: Dev Hernandez MD 07/31/2019 15:10:05 Images reviewed and interpretation verified [facility] Cardiac Ultrasound Laboratory Assessment: Mr. Maurice Rudolph is a 59 y.o. male with a past medical history significant for coronary artery disease status post two-vessel CABG, hypertension, type 2 diabetes with diabetic retinopathy, diabetic neuropathy and diabetic nephropathy leading to end-stage renal disease currently on dialysis. Of note he recently had a fall roughly 4 to 5 months ago which resulted in many fractures and persistent balance issues. Summary: Maurice has some medical issues which will certainly increase his risk of complications for diminished outcomes after transplantation, however, I think some of these are modifiable and that we may be able to diminish these risks prior to transplantation. We talked about the potential benefitsof bariatric surgery given that almost all of his adiposity is abdominal and the fact that it may potentially help improve his diabetes. The potential benefit to him of weight loss and improved glucose control through bariatric surgery is likely to improve his overall survival similarly to transplantation. He seemed very open to this idea and is willing to see the bariatric surgeons to further discuss this. I think if we could improve his weight and diabetic control that we could significantly reduce his chances of postoperative complications from transplantation. Concerns: History of CABG, abdominal obesity, type 2 diabetes, history of difficult intubation and laryngospasm, poor balance since his last fall, at risk vision in his remaining eye. Remaining Surgical Work-up: The standard evaluation for these patients includes, age appropriate cancer screening, dietary, financial, medical and social evaluation. Based on his review, we will also want: Cardiac Clearance: Echocardiogram / Stress Testing Urologic Clearance: [facility] Vascular evaluation: Noncontrast CT scan of the abdomen and pelvis and ABIs. We also need carotid duplex. Abdominal obesity: We will refer him to bariatric surgery. I spent quite some time with the patient discussing the risks benefits and alternatives to renal transplantation. I specifically addressed surgical risks as well as the general risks of immunosuppression. His diabetes is likely to worsen after transplant. We talked about delayed graft function, andhow graft survival is related to his overall health and adherence as well as the health of the donor. We also discussed different types of donors and the advantages of living donors. All of his questions have been answered. Thank you for sending us this patient and for putting your dorothy in the [facility] Transplant Program. We will be discussing his case in our multidisciplinary kidney transplant evaluation committee where I will recommend we work towards getting him listed.. Please do not hesitate to contact me if you have any questions. The number rings directly to my office. Sincerely, Cathie Farfan M.D. Solid Organ Transplant Surgery [facility] documented in this encounter Plan of Treatment Not on file documented as of this encounter Visit Diagnoses Diagnosis ESRD (end stage renal disease) End stage renal disease Encounter for pre-transplant evaluation for kidney transplant documented in this encounter Care Teams Tenant Relations Coordinator Relationship Specialty Start Date End Date Jarad Keller DNP PCP - General Family Medicine 06/05/18 02/09/21 documented as of this encounter
--- OUTSIDE RECORDS SUMMARY | 2023-12-28 16:37 | XMS_ITS | Encounter Summary ---
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 -Please pay attention to your future scheduled appointments if you are having repeat injections. Future injections in the same eye must be at least 28 days apart. -Please, do not rub or wipe your eye for 24-48 hours after the injection as it would create more irritation.If you feel you must, close your eyes, dab gently, and use the sterile pink saline bullets to flush your eyes. -Try to avoid getting tap water or bath water in the eye for 48 hours. Do not swim for 48 hours. -Caution about driving: We always recommend having a transit mixer driver on the day you get an injection. If youdo not feel comfortable driving after your procedure, please allow your vision to recover or make alternate arrangements. - Here are the Normal and Expected side effects: -Do not be surprised or worried if you have a few bloody tears after the injection. You may have a small blood spot on the white of your eye (subconjunctival hemorrhage) or the appearance of a small blister or bump where the injection was given. -You may notice your vision seems a bit hazy and you may see floaters. -All of these things should gradually become less noticeable over the next few days. -You may also have some mild irritation or a foreign body sensation for up to 24 hours. - Here are the Not Normal and Not Expected side effects: Call [phone] (Eye Clinic) DAY or NIGHT, HOLIDAY or WEEKEND if you experience any of the following: = Severe, increasing pain in the eye = Significant, dramatic vision loss = Redness on and around the eye that gets worse, not better = Severe light sensitivity Call [phone] or go to the Emergency room immediately if you experience = Chest pain = Abdominal pain = Weakness or numbness on any part of your body = Slurred speech = Or any other symptoms of concern documented in this encounter Progress Notes * Harmeet Arvizu MD - 03/21/2020 2:45 PM EST ASSESSMENT: 1. 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 I performed the services which were documented by the scribe, and I agree with the accuracy of the documentation in this encounter. 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 documented in this encounter Results * Intravitreal Injection Pharmacologic Agent - OS - Left Eye (03/21/2020 4:17 PM EST) Anatomical Region Laterality Modality Other Narrative 03/21/2020 4:17 PM EST Pre Operative Diagnosis: Diabetic Macular Edema - Diabetic Retinopathy Post Operative Diagnosis: Diabetic Macular Edema - Diabetic Retinopathy Procedure: Intravitreal Injection of Eylea 2.0 mg left eye Assist: Dry Finisher Anesthesia: Topical Proparacaine and topical 4% Lidocaine Complications: None Procedure: The patient was taken to the minor treatment suite where the patient was reidentified using name and birthdate as critical identifiers. The correct eye as the operative site was reidentified by a preplaced site maria r, and the consent form was actively reviewed by the guest services assistant and the surgeon. The left eye was prepped including instillation of Betadine 5% into the left cul de sac for 5 minutes, facial prep with ophthalmic Betadine and placement of a lid speculum. The Surgeon performed hand washing preoperatively, used gloves, and wore a face mask or used no talking technique during the procedudre, as did the surgical instrument repair specialist. After topical anesthesia of the injection site using multiple Q-tips soaked in 4% Lidocaine, Aflibercept (Eylea) 2.0 mg was injected with a 30 gauge needle directed toward the center of the vitreous cavity, a measured 4 mm posterior to the limbus at the 0430 o'clock meridian. The patient demonstrated a minimum of counting fingers vision post injection, and received a post injection drop of Betadine OS. An optional patch was offered to the patient, and the patient was asked to call the Eye Clinic or Eye Doctor residential monitor, should they develop pain the treated eye, increasing redness or a discharge from the eye. 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
--- OUTSIDE RECORDS SUMMARY | 2023-12-28 16:37 | XMS_ITS | Encounter Summary ---
[place] [address] Care Team Providers Care Wet Silk Hanger Name Role Phone Jarad Keller DANIKA Primary Care Provider [phone] Reason for Referral * Diagnostic Test (Routine) - Closed Specialty Diagnoses / Procedures Referred By Puneet hallman Referred To Contact Radiology Diagnoses ESRD (end stage renal disease) Procedures IR Dialysis Access - AV Fistula Evaluations Too Morgan MD [facility] [place] [address] [facility] [place] [address] Referral ID Status Reason Start Date Expiration Date V isits Requested Visits Authorized [id number] Closed Specialty Service Requested 06/03/2020 12/01/2021 1 1 Encounter Details Date Type Department Care Team (Late st Contact Info) Description 06/03/2020 Orders Only [place] [address] Too Morgan MD [facility] [place] [id number] ESRD (end stage renal disease) Social History [...] IR Dialysis Access - AV Fistula Evaluations (06/17/2020 4:08 PM EST) Anatomical Region Laterality Modality Abdomen X-Ray Angiograph y Narrative 06/18/2020 9:23 AM EST INTERVENTIONAL RADIOLOGY PROCEDURE NOTE Procedure: ??Left arm fistulagram with venous angioplasty. Indication for Procedure: Per Live Rodriguez's note dated 06/16/20 ... Maurice Rudolph is a 60 y.o. male who presents to Interventional Radiology to undergo left upper extremity fistulagram. ??Patient undergoes dialysis via left upper extremity AV fistula of unknown provenance. Now reportedly experiencing decreased flows. ??No prior interventions by [facility] IR. 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 Remainder of patient's medical and surgical history, allergies, medications, and social/family history obtained below as previously outlined in patient's medical record. Per patient he fistula created in [place] about 5 years ago. He has undergone one prior fistulagram in [place] with intervention. Technique: After obtaining informed consent, patient was positioned supine on procedure table under Anesthesia. ??Left arm was prepped and draped, maximum sterile barrier technique was used throughout. ??Local anesthesia provided with 1% lidocaine. ?? The cephalic vein was accessed with micropuncture technique under U/S guidance and a 4Fr sheath placed facing peripherally. ??4Fr sheath exchanged over guide wire for a 6Fr sheath. ??A guide wire and angled catheter were placed and directed peripherally and under fluoroscopy across the AV anastomosis. ??Selective arteriography with the catheter in the radial artery showed focal severe stenosis of the AV anastomosis and ~2 cm moderate to severe stenosis of the cephalic vein adjacent to the anastomosis. A 5 mm x 40 mm balloon was advanced over the wire. The stenoses were balloon dilated. The balloon was removed on the wire and repeat radial artery arteriography was performed showing resolution of the anastomotic stenosis but persistent stenosis in the juxta anastomotic cephalic vein. 6 mm x 40 mm balloon was then used to dilate the cephalic stenosis. ??Post RENT AND MISCELLANEOUS REMITTANCE CLERK radial artery arteriography showed resolution of the stenosis. Venography centrally showed drainage via both the cephalic and basilic systems central to the elbow with no stenoses. The sheath was removed and hemostasis achieved with manual compression and a Tip Stop. Medications: Lidocaine 1% <10 mL SQ. Please see separately dictated Anaesthesia report. Contrast: Omnipaque-350 60 ml. ?? Fluoroscopy Time: ??6.7 min EBL: <10 cc Complications: ??No immediate Impression: 1. ??Left arm radiocephalic AV fistula. 2. ??Severe stenosis AV anastomosis resolved with 5 mm RENT AND MISCELLANEOUS REMITTANCE CLERK 3. ??Moderate/severe 2 cm juxta anastomotic cephalic vein stenosis resolved with 6 mm RENT AND MISCELLANEOUS REMITTANCE CLERK. 4. ??Outflow from elbow centrally via both cephalic and basilic systems without central stenoses. 5. ??Coil from prior intervention at outside hospital in the forearm approximately 4 cm central to the AV anastomosis. ??Presumably placed in a side branch vein. Plan/Disposition: 1) To Same day recovery room, may discharge to home when meets criteria. 2) left upper extremity dialysis fistula ready for use. Fine Grade Operator(s): Resident/Fellow: Narinder Rivera Attending: Dr. Larson. ??I, Dr. Larson was present throughout this procedure. 06/17/2020 Too Morgan MD IMG IR ORDERABLES documented in this encounter Visit Diagnoses Diagnosis ESRD (end stage renal disease) End stage renal disease ESRD on dialysis End stage renal disease Type 2 diabetes mellitus with ESRD (end-stage renal disease) Type II or unspecified type diabetes mellitus with renal manifestations, not stated as uncontrolled ESRD (end stage renal disease) End stage renal disease documented in this encounter Care Teams Wet Silk Hanger Relationship Specialty Start Date End Date Jarad Keller DNP PCP - General Family Medicine 06/05/18 02/09/21 documented as of this encounter
--- OUTSIDE RECORDS SUMMARY | 2023-12-28 16:37 | XMS_ITS | Encounter Summary ---
[place] [address] Care Team Providers Care Wallpaper Inspector Name Role Phone Jarad Keller DNP Primary Care Provider [phone] Encounter Details Date Type Department Care Team (Latest Contact Info) Description 01/04/2020 1:45 PM EDT Office [place] [address] Harmeet Arvizu MD [facility] [address] Proliferative diabetic retinopathy of left eye with [...] as of this encounter Progress Notes * Deni Worthy - 01/04/2020 1:45 PM EDT ASSESSMENT: 1. 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 Blindness of right eye, unspecified left eye visual impairment category Now s/p Eylea X 3 monthly since October 2019. Visual Acuity Visual Acuity (Snellen - Linear) Right Left Dist cc LP 20/150 Dist ph cc NI 20/100 -2 Near cc unable 20/70 Correction: Glasses Exam Findings 01/04/20: OD: Severe scarring, grossly attached, PCIOL-- pupillary rim syneched to PCIOL OS: Druse. central heme and edema, full PRP. PCIOL PLAN: Vision loss may not be completely explained by central DME, but since he is monocular we will try another series of injections to improve vision. Only minimal with last series but he still has central DME and heme on exam. Refer to Dr. Gaming for neuro-oph consult, question if there is optic nerve or cortical component to vision loss OS. Patient recalls cortical involvement after fall. Eylea OS #1/3 Today Please schedule the following: Follow up with Dr. Gaming next available for neuro-oph consult. 4-6 weeks Eylea OS #2/3 MSO only 4-6 weeks Eylea OS #3/3 MSO only 4-6 weeks for Re-eval FV+MSO with DFE/OCT/FA-Transit OD for macula ischemia/possible injection IDeni, have performed the documentation for this encounter in the presence of and actingas a scribe for Harmeet Arvizu MD. I performed the services which were documented by the scribe, and I agree with the accuracy of the documentation in this encounter. 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 Left Eye Quality was good. Progression has been stable. Findings include cystoid macular edema, intraretinal fluid. 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
--- OUTSIDE RECORDS SUMMARY | 2023-12-28 16:37 | XMS_ITS | Encounter Summary ---
Author [facility] [place] [address] Care Team Providers Care Cut In Station Operator Name Role Phone Jarad Keller DNP Primary Care Provider [phone] Reason for Visit * Reason Onset Date Comments Follow-up 05/08/2020 Encounter Details Date Type Department Care Team (Late st Contact Info) Description 05/08/2020 Telephone [place] [id number] Harmeet Arvizu MD [facility] [place] [address] Follow-up Social History Tobacco Use Types Packs/Day [...] * Telephone Encounter - Shanika Minaya - 05/14/2020 10:56 AM EST Left second message for patient to call and schedule, see below. Also sending a letter * Telephone Encounter - Shanika Minaya - 05/08/2020 9:09 AM EST Called and left message for patient to call and schedule follow up from recent [facility] visit for Dr Arvizu:Follow up retina in about 3-4 months for DFE/OCT. Possible Eylea for any worsening of DME, please note Dr Arvizu wants him to keep his upcoming appointment with Dr. Santiago and there is a letter in his chart that Dr Arvizu wrote, it probably wont be to him for a week or so, please offer to read it to him documented in this encounter Plan of Treatment Not on file documented as of this encounter Visit Diagnoses Not on filedocumented in this encounter Care Teams Cut In Station Operator Relationship Specialty Start Date End Date Jarad Keller DNP PCP - General Family Medicine 06/05/18 02/09/21 documented as of this encounter
--- OUTSIDE RECORDS SUMMARY | 2023-12-28 16:37 | XMS_ITS | Encounter Summary ---
[place] [address] Care Team Providers Care Risk Professional Name Role Phone Jarad Keller DNP Primary Care Provider [phone] Encounter Details Date Type Department Care Team (Late st Contact Info) Description 02/01/2020 Notes Only [place] [address] Simi Meek MSW Social History Tobacco Use Types Packs/Day Years [...] as of this encounter Progress Notes * Simi Meek MSW - 02/01/2020 3:49 PM EDT Psychosocial Assessment Maurice presents alone today. Primary Medical Concerns: Patient Active Problem List Diagnosis Date Noted ??? Closed fracture of right proximal humerus 07/30/2019 ??? Closed nondisplaced fracture of shaft of right clavicle 07/30/2019 ??? Right scapula fracture 07/30/2019 ??? Fall 07/30/2019 ??? Cellulitis 10/19/2018 ??? Pre-transplant evaluation for kidney transplant 06/20/2018 ??? Class 2 severe obesity due to excess calories with serious comorbidity and body mass index (BMI) of 39.0 to 39.9 in adult 06/08/2018 ??? Pseudophakia of both eyes 10/03/2013 ??? PCO (posterior capsular opacification) 10/03/2013 ??? Eye pain 02/19/2013 ??? Ocular hypertension of right eye. Postop 01/09/2013 ??? Ischemic diabetic maculopathy 11/06/2012 ??? Type 2 diabetes mellitus with stage 5 chronic kidney disease not on chronic dialysis, with long-term current use of insulin 11/06/2012 ??? Hyperopia 05/03/2012 ??? 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 HTN (hypertension) 04/03/2012 ??? GERD (gastroesophageal reflux disease) 04/03/2012 ??? Proliferative diabetic retinopathy, both eyes 06/15/2011 Background History: See Psychosocial Assessment by GAURI Vernon, dtd 06/08/19. Highest level of education: One year of college. Can patient read and write: Yes. Patient's preferred learning style: He likes visual, but is going blind, so primarily auditory now. [place] Citizen: Yes. What Country do you reside in? [place] 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 Current Living Situation: Rent or Own. He owns the house. Mortgage? No mortgage. Paid espinoza. Subsidized? N/A How many steps to enter the home? None. He walks up a little ramp. He has to use a walker all the time. A fall in August 2019 shattered his shoulder, caused brain damage, he went unconscious. It has affected his balance and his eyesight. His eyesight before the fall was not great and it is worse now. How many levels is the home? Two-story home. He doesn't go upstairs anymore. His bedroom is in the living room now. Is the bathroom handicapped accessible? Yes. DME including tube feeds and O2: Just his walker and a shower bench. Are your utilities functional? Yes, both electricity and heating (by oil) are functional. He has anelectric heater that he uses in his bedroom. It has an auto shutoff. Can you complete your ADL's independently? Yes. And he does all the cooking, too. Social/Emotional Supports (Informal and formal): His . Also his 33-year-old son Ze if he really needs someone to talk to. No friends to talk to. He didn't tell anyone he was moving when he met to [place]. He came back 2 years ago. He is not part of any mormonism or other social groups. I really don't have any emotional baggage. I've gotten along well so far. Coping Skills: I just do it. Talking with his and son. He doesn't have activities to distract him. Spirituality: None. Denomination: N/A Mental Health Concerns/treatment (current or prior): Denies, including therapy, medications, hospitalizations, suicide attempts, suicidal or homicidal ideation, self harm behavior, or auditory and visual Hallucinations. Today he reports some anxiety. He takes sertraline for that and it is effective. He used to get anxious at dialysis. He started it years ago for depression, got off of it for a while, then started it again for dialysis as it gave him panic attacks. History of Substance Abuse: Smoking: Smoked tobacco 30 years ago. Drugs: 40 years ago. Not any now. Alcohol: Stopped drinking ETOH 3 years ago. Just drank a little then. Withdrawals and or hospitalizations: None. Substance abuse treatment: No. Arrests: Yes. 1987. I'd rather not say. Insurance Coverage (medical and prescription): Payor: MEDICARE / Plan: MEDICARE PART A & B / Product Type: *No Product type* / Patient also has [place] Medicaid. Financial Status: Are bills up to date? Electric, water, oil, etc. are paid by the $1 million trust from the [facility] for his . Can you afford your medications? Yes. Have you ever gone without your medications due to cost? No. Any community supports? None. Food stamps? Not anymore. He sends a nurse's aide to the grocery store to shop. Medication Adherence: Do you take your medications as prescribed? Yes. He has blister packs which makes it easy. Do you miss any of your medications? Sometimes he will miss his noon med, but it's just a gabapentin for the neuropathy in his leg.. In a 6 month period of time how often do you miss your medications? Rarely. Not often anymore. Not any of the medications that matter. Advanced Directives: [place] CARRI, dtd 06/08/2018 on file, which Lists Adriana Lopez (sister) as DPOA followed by Iav Blue (sister) as alternate. Possible Donors: He does not have any at this point in time. His son wouldn't be eligible as he's too big. Living donor fund explained? Yes. Transportation: [facility] ([facility]) to all of his appointments. Patient's understanding of their diagnosis: He says his kidneys have failed. Barriers to treatment plan: None noted at this time. BIOFUELS PRODUCTION MANAGER plan: Worker to continue to follow Maurice if the team decides to move forward with listing Maurice for transplant. GAURI VERNON Transplant Speaker Wirer Pager [phone] documented in this encounter Plan of Treatment Not on file documented as of this encounter Visit Diagnoses Not on filedocumented in this encounter Care Teams Risk Professional Relationship Specialty Start Date End Date Jarad Keller DNP PCP - General Family Medicine 06/05/18 02/09/21 documented as of this encounter
--- OUTSIDE RECORDS SUMMARY | 2023-12-28 16:37 | XMS_ITS | Encounter Summary ---
[place] [address] Care Team Providers Care Recovery Assistant Name Role Phone Jarad Keller DNP Primary Care Provider [phone] Encounter Details Date Type Department Care Team (Late st Contact Info) Description 01/14/2020 Abstract [place] [address] Jessica Santos Social History Tobacco Use Types Packs/Day Years [...] on filedocumented in this encounter Care Teams Recovery Assistant Relationship Specialty Start Date End Date Jarad Keller DNP PCP - General Family Medicine 06/05/18 02/09/21 documented as of this encounter
--- OUTSIDE RECORDS SUMMARY | 2023-12-28 16:37 | XMS_ITS | Encounter Summary ---
[place] [address] Care Team Providers Care Syrup Maker Cook Name Role Phone Jarad Keller DNP Primary Care Provider [phone] Encounter Details Date Type Department Care Team (Late st Contact Info) Description 02/06/2020 2:30 PM EDT Office Visit [place] [address] Encounter for pre-transplant evaluation for kidney transplant [...] as of this encounter Progress Notes * Nikki Castillo, [facility] - 02/06/2020 2:30 PM EDT Transplant Pharmacy Consultation ~ Transplant Recipient medication management and pharmacotherapy counseling Recipient name, Age, Sex: Mr. Maurice Rudolph is a 59 y.o. male Condition leading to transplant: type 2 diabetes with complications of diabetic retinopathy and diabetic nephropathy with resultant ESRD currently on dialysis Previous transplant / txp date: No prior transplant Type dialysis prior to transplant / date started / reported: HD / ~ 2015 Medication Handout review / date reviewed / initials: General review - date / initials: Jan 2020 Immunosuppressants - date / initials: Jan 2020 Anti-infectives- date / initials: Jan 2020 Adjunct medications- date / initials: Jan 2020 Problem solving- date / initials: Jan 2020 Encounter Date: February 06, 2020 Mr. Maurice Rudolph is a 59 y.o. male seen for a medication review as part of his kidney transplant work-up. S: Met with patient to review current medications and discuss post-transplant medications. Completed the Morisky 8 Item Adherence Questionaire to better better quantify the patient's probability to maintain compliance with a post kidney transplant drug regimen. Mr. Maurice Rudolph scored 8 of 8 predicting high adherence. The Morisky scale has been validated in the post transplant population. Yes = 0 points, No = 1 point Score 1 - Do you sometimes forget to take your medicine? 1 Mr Rudolph states that, despite his poor eyesight, he has all his meds in blister pack. Therefore, it's easier for him to take his medicines. His is also a source of help for him. 2 - People sometimes miss taking their medicines for reasons other than forgetting. Thinking over the past 2 weeks, were there any days when you did not take your medicine? 1 3 - Have you ever cut back or stopped taking your medicine without telling your doctor because you felt worse when you took it? 1 4 - When you travel or leave home, do you sometimes forget to bring along your medicine? 1 5 - Did you take all your medicines yesterday? (reverse scoring) 1 6 - When you feel like your symptoms are under control, do you sometimes stop taking your medicine? 1 7 - Taking medicine every day is a real inconvenience for some people. Do you ever feel hassled about sticking to your treatment plan? 1 8 - How often do you have difficulty remembering to take all your medicine? __ A. Never/rarely A = 1 __ B. Once in a while B - E = 0 __ C. Sometimes __ D. Usually __ E. All the time 1 Scores: <6 = low adherence, 6-7 = medium adherence, 8 = high adherence Jodie DE, Bert LW, Jane DM. Concurrent and predictive validity of a self- reported measure of medication adherence. Med Care. 1986;24:67-74. How often or do you run out of one or more of your prescription medications before getting a new refill? No, his medicines are delivered to his house. How often or do you have difficulty affording your prescription medications? No To help determine your narcotic needs at time of transplant, are you currently taking or have recently taken any medications for pain? No If yes, record medications used, approximate length of therapy and any issues with pain control Patient's self-reporting of controlled drug use is consistent with PDMP search conducted by pharmacist. Allergies: Mirtazapine Current Medications: Medication Sig Comments ??? NovoLOG Flexpen U-100 Insulin Insulin Pen Inject 6 Units subcutaneously 3 times daily (with meals). ICD 10 Code: E11.65 (Patient taking differently: Inject 12-16 Units subcutaneously 3 times daily (with meals). ICD 10 Code: E11.65) Take 12-16 units before each meal ??? Basaglar KwikPen U-100 Insulin 100 unit/mL (3 mL) pen Inject 20 Units subcutaneously daily. ICD10 Code: E11.65 ??? amLODIPine (Norvasc) 5 mg Tablet Take 1 tablet by mouth daily. ??? epoetin babs-epbx (Retacrit) 10,000 unit/mL Solution Inject 1 mL subcutaneously once as needed in Dialysis. ??? melatonin 3 mg Tablet Take 2 tablets by mouth nightly. ??? sevelamer carbonate (Renvela) 800 mg Tablet Take 1 tablet by mouth 3 times daily (with meals). ??? aspirin 325 mg Tablet Take 1 tablet by mouth daily. ??? losartan (COZAAR) 50 mg Tablet Take [...] 300 mg by mouth 3 times daily. It appears that he has two prescription of gabapentin: 300 mg three times daily and 100 mg twice daily. He is not sure whether he takes both as he says he takes whatever in the blister pack. ??? sertraline (ZOLOFT) 25 mg tablet Take 50 mg by mouth daily. Increased from 25 mg to 50 mg daily ??? pravastatin (PRAVACHOL) 40 mg Tablet Take 40 mg by mouth daily. ??? OneTouch Verio Flex meter [facility] [place]LOOD GLUCOSE THREE TIMES A DAY ??? insulin needles, disposable, 31 gauge x 3/16 Needle Inject 1 each subcutaneously 4 times daily. ICD 10 Code: E11.65 ??? sub-q insulin device, 20 unit (V-GO 20) Device 1 each by [facility]Non-Drug; Combo Route) route daily. Insulin pump to infuse insulin continuously. Change daily ??? blood sugar diagnostic strips Strip Use to check blood sugar 3 times daily No current [facility]-ordered facility-administered medications on file. Assessment/plan: 1. There are no medication contraindications noted to proceed with transplant surgery. Mr Rudolph has poor eyesight and has difficulty reading prescription labels. Fortunately, currently he has all his medicines delivered to him in the blister pack, and his also provides some help to him. We need to make sure he continues to have the same kind of support after transplant. It will be difficulty for him to manage his transplant medications by himself. 2. Mr. Maurice Rudolph was ranked high adherence to his medication regimen based on the Morisky 8 Item Adherence scale. 3. The need for terminal carman medication and potential adjustment of medications post-transplant were discussed. A handout reviewing potential transplant medication side effects, dosing and pertinent issues was supplied as a reference. Mr Rudolph states that he can read the handout slowly with the help of a magnifying glass. 4. Patient was provided with handout reviewing post-transplant discharge medication costs. 5. Will remain available for any medication questions NIKKI CASTILLO RPH Transplant pharmacist Pager [phone] documented in this encounter Plan of Treatment Not on file documented as of this encounter Visit Diagnoses Diagnosis Encounter for pre-transplant evaluation for kidney transplant documented in this encounter Care Teams Syrup Maker Cook Relationship Specialty Start Date End Date Jarad Keller DNP PCP - General Family Medicine 06/05/18 02/09/21 documented as of this encounter
--- OUTSIDE RECORDS SUMMARY | 2023-12-28 16:37 | XMS_ITS | Encounter Summary ---
[place] [address] Care Team Providers Care Forging Press Setter Up Name Role Phone Jarad Keller DNP Primary Care Provider [phone] Encounter Details Date Type Department Care Team (Late st Contact Info) Description 01/16/2020 Telephone [place] [address] Sherie Mccallum, [place] [facility] [place] [address] Social History Tobacco Use Types Packs/Day Years [...] Telephone Encounter - Sherie Mccallum, RN - 01/16/2020 10:26 AM EDT Called pt for referral intake. Left message for him to call sports book writer back. Will await return call. documented in this encounter Plan of Treatment Not on file documented as of this encounter Visit Diagnoses Not on filedocumented in this encounter Care Teams Forging Press Setter Up Relationship Specialty Start Date End Date Jarad Keller DNP PCP - General Family Medicine 06/05/18 02/09/21 documented as of this encounter
--- OUTSIDE RECORDS SUMMARY | 2023-12-28 16:37 | XMS_ITS | Encounter Summary ---
[place] [address] Care Team Providers Care Etl Application Developer Name Role Phone Jarad Keller DNP Primary Care Provider [phone] Encounter Details Date Type Department Care Team (Late st Contact Info) Description 02/06/2020 Orders Only [place] [address] Daily, Young Ramirez MD [facility] [place] [address] Coronary artery disease, angina presence unspecified, unspecified vessel or lesion type, unspecified whether [place] or transplanted heart; Benign prostatic hyperplasia, unspecified whether lower urinary tract symptoms present; Diabetes mellitus due to underlying condition with diabetic nephropathy, with long-term current use of insulin ; Type 1 diabetes mellitus with nephropathy; End stage renal disease; Pre-transplant evaluation for kidney transplant Social History Tobacco [...] documented as of this encounter Results * (ABNORMAL) C-peptide (02/06/2020 2:48 PM EDT) Pathologist [facility] C-Peptide 10.8(H) 0.8 - 5.2 ng/mL [facility] Blood specimen (specimen) 02/06/2020 2:48 PM EDT 02/06/2020 2:57 PM EDT Narrative Resulting Agency Comment Spec In Lab Young Coronado MD CHEMISTRY ORDERABLES Performing Organization Address [facility] Co de Phone Number [facility] [place] [address] * PSA (Ultrasensitive) (02/06/2020 2:48 PM EDT) [facility] Prostate Specific Antigen (Ultrasensitive ) 0.57 0.00 - 4.00 ng/mL [facility] Comment: PLEASE NOTE: The above reference interval is intended for healthy males with an intact prostate. Values within this reference interval may indicate recurrence in men who have undergone radical prostatectomy. Blood specimen (specimen) 02/06/2020 2:48 PM EDT 02/06/2020 2:57 PM EDT Narrative Resulting Agency Comment Spec In Lab Young Coronado MD CHEMISTRY ORDERABLES Performing Organization Address City/[facility] Co de Phone Number [facility] [place] [address] * (ABNORMAL) Hemoglobin A1c (02/06/2020 2:48 PM EDT) Pathologist [facility] Hemoglobin A1c 10.0(H) 4.3 - 5.6 % [facility] Comment: Reference Range: 4.3 [...] Mellitus, Diabetes Care 2013; 36: Suppl. 1, S67-74 Estimated Average Glucose 239 mg/dL [facility] Comment: eAG equivalents for [...] into estimated average glucose values. ??Diabetes Care 2008:31(8):0142-1517. Blood specimen (specimen) 02/06/2020 2:48 PM EDT 02/06/2020 2:57 PM EDT Narrative Resulting Agency Comment Spec In Lab Young Coronado MD CHEMISTRY ORDERABLES [facility] [place] [address] * (ABNORMAL) Fructosamine (02/06/2020 2:48 PM EDT) Fructosamine (AUGUST) 556(H) 200 - 285 mcmol/L [facility] Comment: Test Performed by: [facility] - [address] [address] Sap Pi Architect: Marquise Dobbs M.D. Ph.D.; CLIA# [id number] Blood specimen (specimen) 02/06/2020 2:48 PM EDT 02/06/2020 3:59 PM EDT Narrative Resulting Agency Comment Spec In Lab Young Coronado MD LAB SEND OUT ORDERAB LES Performing Organization Address [facility] Co de Phone Number [facility] [place] [address] * Varicella zoster Antibody, IgG (02/06/2020 2:48 PM EDT) Varicella Zoster Antibody IgG Pos [facility] Blood specimen (specimen) 02/06/2020 2:48 PM EDT 02/07/2020 7:33 AM EDT Narrative Resulting Agency Comment Spec In Lab Young Coronado MD IMMUNOLOGY ORDERABLE S Performing Organization Address [facility] de Phone Number [facility] [place] [address] * (ABNORMAL) Toxoplasma Antibody, IgG (02/06/2020 2:48 PM EDT) Toxoplasma Antibody IgG Positive( A) Negative [facility] Blood specimen (specimen) 02/06/2020 2:48 PM EDT 02/07/2020 7:33 AM EDT Narrative Resulting Agency Comment Spec In Lab Young Coronado MD IMMUNOLOGY ORDERABLE S Performing Organization Address [facility] de Phone Number [facility] [place] [address] * Syphilis Screening Antibody with reflex RPR (02/06/2020 2:48 PM EDT) Syphilis IgG/IgM Negative Negative [facility] Blood specimen (specimen) 02/06/2020 2:48 PM EDT 02/06/2020 2:57 PM EDT Narrative Resulting Agency Comment Spec In Lab Young Coronado MD CHEMISTRY ORDERABLES Performing Organization Address [facility]/ZIP Co de Phone Number [facility] [place] [address] * HIV Screen, 4th Generation ([facility]/CGP/APD/NLH) (02/06/2020 2:48 PM EDT) HIV Ab/Ag Screen Negative Negative [facility] Comment: This 4th Generation [...] In Lab Young Coronado MD CHEMISTRY ORDERABLES Performing Organization Address [facility] Co de Phone Number [facility] [place] [address] * (ABNORMAL) HSV 1 and 2 IgG Antibodies (02/06/2020 2:48 PM EDT) HSV Type 1 Ab, IgG Pos(A) Neg [facility] HSV Type 2 Ab, IgG Pos(A) Neg [facility] Blood specimen (specimen) 02/06/2020 2:48 PM EDT 02/07/2020 7:33 AM EDT Narrative Resulting Agency Comment Spec In Lab Young Coronado MD IMMUNOLOGY ORDERABLE S Performing Organization Address City/[facility]/ZIP Co de Phone Number [facility] [place] [address] * (ABNORMAL) Carlie-St Virus Antibodies (02/06/2020 2:48 PM EDT) EBV (VCA) IgG Ab Pos(A) Neg [facility] EBV (VCA) IgM Ab Neg Neg [facility] EBNA Antibodies Pos(A) Neg [facility] EBV Interpretation Results suggest past infection. [facility] Comment: In most populations, at least 90% of the adult population will have been infected with EBV some time in the past and therefore, will be positive for anti-VCA/IgG and anti-EBNA. Antibodies to EBNA develop 6-8 weeks after primary infection and remain present for life. Presence of VCA/IgM antibodies indicates recent primary infection with EBV. Blood specimen (specimen) 02/06/2020 2:48 PM EDT 02/07/2020 7:33 AM EDT Narrative Resulting Agency Comment Spec In Lab Young Coronado MD IMMUNOLOGY ORDERABLE S Performing Organization Address [facility]/ZIP Co de Phone Number [facility] [place] [address] * CMV Antibody, IgG (02/06/2020 2:48 PM EDT) CMV IgG Negative Negative [facility] Blood specimen (specimen) 02/06/2020 2:48 PM EDT 02/07/2020 7:33 AM EDT Narrative Resulting Agency Comment Spec In Lab Young Coronado MD IMMUNOLOGY ORDERABLE S Performing Organization Address [facility] Co de Phone Number [facility] [place] [address] * Hepatitis C Antibody (02/06/2020 2:48 PM EDT) Hepatitis C Antibody Negative Negative [facility] Blood specimen (specimen) 02/06/2020 2:48 PM EDT 02/06/2020 2:57 PM EDT Narrative Resulting Agency Comment Spec In Lab Young Coronado MD CHEMISTRY ORDERABLES Performing Organization Address City/[facility] Co de Phone Number [facility] [place] [address] * Hepatitis B Surface Antigen (02/06/2020 2:48 PM EDT) Hepatitis B Surface Antigen Negative Negative [facility] Blood specimen (specimen) 02/06/2020 2:48 PM EDT 02/06/2020 2:57 PM EDT Narrative Resulting Agency Comment Spec In Lab Young Ramirez Daily CHEMISTRY ORDERABLES Performing Organization Address City/[facility]/ZIP Co de Phone Number [facility] [place] [address] * Hepatitis B Surface Antibody (02/06/2020 2:48 PM EDT) Pathologist [facility] Hepatitis B Surface Antibody, Quantitative 52.5 IU/L [facility] Comment: HepB Surface Ab Quant: Unvaccinated: < 8.5 IU/L Vaccinated: > 11.5 IU/L Hepatitis B Surface Antibody Positive [facility] Comment: Patient is considered to be immune to HBV infection. Expected Results: Vaccinated: Positive Unvaccinated: Negative Blood specimen (specimen) 02/06/2020 2:48 PM EDT 02/06/2020 2:57 PM EDT Narrative Resulting Agency Comment Spec In Lab Young Coronado MD CHEMISTRY ORDERABLES Performing Organization Address [facility] Co de Phone Number [facility] [place] [address] * Hepatitis B Core Antibody, IgM (02/06/2020 2:48 PM EDT) Hepatitis B Core IgM Negative Negative [facility] Blood specimen (specimen) 02/06/2020 2:48 PM EDT 02/06/2020 2:57 PM EDT Narrative Resulting Agency Comment Spec In Lab Young Ramirez Daily CHEMISTRY ORDERABLES [facility] [place] [address] * Prothrombin Time (02/06/2020 2:48 PM EDT) Pathologist [facility] Prothrombin Time 11.1 9.4 - 12.5 sec [facility] International Normalization Ratio 1.0 [facility] Comment: An INR <2.0 indicates adequate procoagulant activity for hemostasis in most patients without underlying bleeding disorders, though the INR may not adequately reflect hemostatic capacity in patients with liver disease and synthetic impairment. The recommended target INR range for therapeutic anticoagulation is 2.0 ? 3.0 for most applications, though lower and higher ranges may be appropriate depending on clinical circumstances. Blood specimen (specimen) 02/06/2020 2:48 PM EDT 02/06/2020 2:57 PM EDT Narrative Resulting Agency Comment Spec In Lab Young Coronado MD HEMATOLOGY ORDERABLE S Performing Organization Address [facility] Co de Phone Number [facility] [place] [address] * APTT (02/06/2020 2:48 PM EDT) Partial Thromboplastin Time 35 25 - 37 sec [facility] Comment: The PTT is NOT appropriate for heparin monitoring. Use the Anti-Xa level for heparin monitoring (HEP UFH) or LMWH monitoring (HEP LMW). A PTT less than 37 seconds generally indicates adequate hemostasis. Blood specimen (specimen) 02/06/2020 2:48 PM EDT 02/06/2020 2:57 PM EDT Narrative Resulting Agency Comment Spec In Lab Young Coronado MD HEMATOLOGY ORDERABLE S Performing Organization Address City/[facility] Co de Phone Number [facility] [place] [address] documented in this encounter Visit Diagnoses Diagnosis Coronary artery disease, angina presence unspecified, unspecified vessel or lesion type, unspecified whether [place] or transplanted heart Benign prostatic hyperplasia, unspecified whether lower urinary tract symptoms present Diabetes mellitus due to underlying condition with diabetic nephropathy, 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
--- OUTSIDE RECORDS SUMMARY | 2023-12-28 16:37 | XMS_ITS | Encounter Summary ---
[place] [address] Care Team Providers Care Emergency Vehicle Driver Name Role Phone Jarad Keller DANIKA Primary Care Provider [phone] Reason for Referral * Diagnostic Test (Routine) - Closed Specialty Diagnoses / Procedures Referred By Puneet hallman Referred To Contact Radiology Diagnoses ESRD (end stage renal disease) Procedures IR Dialysis Access - AV Fistula Evaluations Too Morgan MD [facility] [place] [address] [facility] [place] [address] Referral ID Status Reason Start Date Expiration Date V isits Requested Visits Authorized [id number] Closed Specialty Service Requested 10/21/2020 04/22/2022 1 1 Encounter Details Date Type Department Care Team ([facility] st Contact Info) Description 10/21/2020 Orders Only [place] [address] Too Morgan MD [facility] [place] [address] ESRD (end stage renal disease) Social History [...] IR Dialysis Access - AV Fistula Evaluations (11/04/2020 4:01 PM EDT) Anatomical Region Laterality Modality Abdomen X-Ray Angiograph y Narrative 11/04/2020 9:00 PM EDT INTERVENTIONAL RADIOLOGY PROCEDURE NOTE Procedure: Left arm radiocephalic fistulagram with venous angioplasty. Indication for Procedure: Per Dr. Rivera's note dated 10/30/20 Maurice Rudolph is a 60 y.o. male, IR consulted for left upper extremity AV fistulagram and possible intervention. ??Patient has left upper extremity AV fistula with decreasing access flow and history of AV stenosis. ??Patient undergoes dialysis via left upper extremity AV fistula of unknown timeline. ?? Patient has Mallampati of 4, scheduled with anaesthesia. ?? Last IR intervention on 06/17/20 Consent: After discussing the risks (including infection, hemorrhage, damage to surrounding structures, respiratory depression, nonfunctioning AV dialysis fistula/graft requiring placement of HD catheter) and benefits, the patient consented to the procedure. Technique: After obtaining informed consent patient positioned supine on procedure table under Anesthesia. ??Left forearm was prepped and draped, maximal sterile barrier technique used throughout. ??Local anesthetic provided with 1% lidocaine. The outflow cephalic vein was accessed with micropuncture technique under ultrasound guidance and a 4 Mauritanian sheath placed facing peripherally. ??4 Mauritanian sheath exchanged over guidewire for a 6 Mauritanian sheath. ??Guidewire and angled catheter were placed and directed peripherally under fluoroscopic across the AV anastomosis. ?? Arteriography with the catheter in the radial artery showed a focal severe stenosis of the cephalic vein ~2.5cm central to the AV anastomosis. The AV anastomosis was not stenotic. A 6 mm x 40 mm balloon was advanced over the wire. ??The stenosis was balloon dilated. ??The balloon was removed over the wire and repeat radial artery arteriography was performed showing persistent mild stenosis of the cephalic vein. ??A 7 mm x 40 mm balloon was then used to dilate the cephalic stenosis. ??Post balloon dilation radial artery arteriography showed resolution of the stenosis. The sheath was removed and hemostasis achieved with manual compression and a tip stop. Medications: Lidocaine 1% <10 mL SQ Contrast: 35 mL Omnipaque 350 ?? Fluoroscopy Time: ??3.5 min EBL: <10 cc Complications: ??No immediate Impression: 1. Left forearm radiocephalic AV fistula. 2. Severe focal stenosis of cephalic vein 2.5cm central to AV anastomosis, resolved with 7 mm COMPO CASTER. 3. Coil from prior intervention at outside hospital in the forearm, unchanged from 06/17/20. 4. AV anastomosis not stenotic. Plan/Disposition: 1) To Same Day for recovery, may discharge to home when meets criteria. 2) Left arm dialysis fistula ready for use. Underwear Finisher(s): Resident/Fellow: Narinder Rivera Attending: Dr. Larson. ??I, Dr. Larson was present throughout this procedure. 11/04/2020 Too Morgan MD IM IR ORDERABLES documented in this encounter Visit Diagnoses Diagnosis ESRD (end stage renal disease) End stage renal disease ESRD (end stage renal disease) End stage renal disease documented in this encounter Care Teams Emergency Vehicle Driver Relationship Specialty Start Date End Date Jarad Keller DNP PCP - General Family Medicine 06/05/18 02/09/21 documented as of this encounter
--- OUTSIDE RECORDS SUMMARY | 2023-12-28 16:37 | XMS_ITS | Encounter Summary ---
Author Organization [facility] [place] [address] Care Team Providers Care Housecleaner Floor Name Role Phone Jarad Keller DNP Primary Care Provider [phone] Encounter Details Date Type Department Care Team (Late st Contact Info) Description 11/04/2020 2:38 [place] [address] Wendie, Too Mcfarlane MD [facility] [place] [address] Herman Turner MD [facility] [place] [address] Anesthesia Record Procedure Summary Procedure Name Responsible Anesthesiologist Anesthesia Start Time Anesthesia Stop Time FISTULAGRAM (Left) Too Pressley MD 11/04/20 1438 1613 Events Date Time Event Comment 11/04/2020 1359 1438 AN Verify 1438 Start 1438 An Start Data 1444 Anesthesia Ready 1512 Quick Note Fluids changed to NS 1559 an stop data 1613 Recovery or ICU Handoff Halima ent care was transferred to the destination unit staff after review of the patient's medical history, current anesthetic/surgical status and plan, according to the Provider Handoff Checklist. 1613 Stop Meds Name Total Propofol INF 187.34 mg Dexmedetomidine 4 mcg Propofol 30 mg PHENYLephrine 80 mcg Lactated Ringers 0 mL Sodium Chloride 0.9% 150 mL * Agents Name O2 Air N2O [...] (RETIRED) Peripheral IV Line - Single Lumen 11/04/20; 1426; metacarpal vein (top of hand), right; [id number] catheter system; Anatomical Landmarks; 22 gauge; Laura Tesfaye RN; no longer indicated, removed per physician, removed per policy/procedure, site care per policy/procedure, catheter/device intact; 11/04/20; 1654 11/04/20 1426 by Laura Tesfaye RN 11/04/20 1654 by Sandhya Green RN documented in this encounter Social History [...] OR Notes * Anesthesia Postprocedure Evaluation - Too Pressley MD - 11/04/2020 4:33 PM EDT Department of Anesthesiology Post-procedure Note Patient: Maurice Rudolph Procedure Summary Date: 11/04/20 Room / Location: [facility] / [facility] Anesthesia Start: 1438 Anesthesia Stop: 1613 Procedure: FISTULAGRAM (Left ) Diagnosis: (ESRD (end stage renal disease)) Surgeons: Ceasar Gonzalez MD Responsible Provider: Too Pressley MD Anesthesia Type: MAC ASA Status: 3 All Anesthesia Providers: Anesthesiologist: Too Pressley MD SALES PLANNING COORDINATOR: Arnel Rodriguez CRNA Student Nurse Senior Clinical Data Analyst: Michelle Tee Vitals Value Taken Time BP 165/84 11/04/20 1615 Temp 36.2 ??C (97.2 ??F) 11/04/20 1605 Pulse Resp 16 11/04/20 1615 SpO2 93 % 11/04/20 1615 Pain Level 0 11/04/20 1615 Patient Location: PACU/[facility] Level of Consciousness: Awake and Alert Pain Management: Satisfactory Analgesia PONV: None Cardiovascular Status: At Baseline Respiratory Status: At Baseline Postoperative Fluid Status: Intravascular EUvolemia Possible Anesthetic Complications: NONE apparent at time of evaluation Final Primary Anesthesia Type: MAC (The anesthetic type performed was the same as planned.) Comments: I have evaluated the patient in the postoperative period. The time of my evaluation may not match the note time. The patient has no major complaints and there are no serious complications evident. * Anesthesia Preprocedure Evaluation - Too Pressley MD - 11/04/2020 1:56 PM EDT Pre-Anesthesia Evaluation for: Maurice Rudolph a 60 [...] AV Fistula Evaluations 06/17/2020 Kimani Larson MD [facility] ??? PERIPHERAL IRIDOTOMY 04/06/2012 OD Swendris ??? PRO EXTRACAPSULAR CATARACT RMVL INSERTION IO LENS PROSTH CPLX WO ECP 07/18/2012 ??? PRO EXTRACAPSULAR CATARACT RMVL INSERTION IO LENS PROSTH W/O ECP 11/29/2012 CATARACT EXTRACTION, EXTRACAPSULAR, W/ LENS INSERTION performed by Erasmo Bajwa MD at [facility] ? ? PRO REPAIR COMPLEX RETINA DETACH VITRECTOMY & MEMB PEEL 04/03/2012, 04/03/12 REPAIR COMPLEX RETINAL DETACHMENT, W/ VITRECTOMY, MEMBRANE PEELING performed by Matteo Diane MD at [facility] MAIN OR ? ? PRO REPAIR COMPLEX RETINA DETACH VITRECTOMY & MEMB PEEL 07/31/2012 REPAIR COMPLEX RETINAL DETACHMENT, W/ VITRECTOMY, MEMBRANE PEELING performed by Matteo Diane MD at [facility] MAIN OR ? ? PRO REPAIR COMPLEX RETINA DETACH VITRECTOMY & MEMB PEEL 01/08/2013 REPAIR COMPLEX RETINAL DETACHMENT, W/ VITRECTOMY, MEMBRANE PEELING performed by Matteo Diane MD at [facility] MAIN OR ??? PRO TX EXTENSIVE RETINOPATHY, [...] Physical Exam: Preprocedure Vitals Current as of 11/04/20 1356 No BP, pulse, respiration, SpO2, or temperature recorded. Height: Weight: BMI: IBW: Airway Assessment: Mallampati: III TM distance: >3 FB Neck ROM: full Cardiovascular Assessment: Rhythm: regular Rate: normal Pulmonary Assessment: breath sounds clear to auscultation Dental Assessment: Misc Assessment: IV access: Peripheral line Other exam findings: Upper and lower dentures Last Filed Perioperative Cognitive Screening None Anesthesia Plan: ASA 3 MAC, with a(n) intravenous induction I have seen and examined the patient. I have reviewed the medical record and pertinent laboratory information. I have noted the major medical issues as outlined in the problem list. I have reviewed risks from minor to major as outlined in the anesthesia consent form. I have highlighted risks related to airway management, morbid obesity, ESRD, and sedation. He is aware that our care model is based on a team and I will be working with either a SALES PLANNING COORDINATOR or resident physician. A resident physician means a physician who is in training to be an anesthesiologist. The patient acknowledged these risks and would like to proceed with the anesthesia plan. Sedation and local anesthesia by proceduralist. GA back. Region - Other Informed Consent: Anesthetic plan and risks discussed with patient. Plan discussed with SALES PLANNING COORDINATOR. Anesthesia Screening documented in this encounter Plan of Treatment Not on file documented as of this encounter Visit Diagnoses Not on filedocumented in this encounter Administered Medications Inactive Administered Medications - up to 3 most recent administrations Medication Order MAR Action Action Date Dose Rate Site dexmedetomidine (Precedex) (4 mcg/mL) bolus injection (Anesthsia) Intravenous, PRN, Starting on Tue11/04/20 at 1454, Until Tue11/04/20 at 1613, Anesthesia Intra-op, Routine Given 11/04/2020 2:54 PM EDT 4 mcg lactated ringers infusion Intravenous, CONTINUOUS PRN, Starting on Tue11/04/20 at 1445, Until Tue11/04/20 at 1613, Anesthesia Intra-op New Bag 11/04/2020 2:45 PM EDT PHENYLephrine in NS (PF) (GWEN-SYNEPHRINE) 0.8 mg/10 mL (80 mcg/mL) multi-dose injection Syrg Intravenous, PRN, Starting on Tue11/04/20 at 1511, Until Tue11/04/20 at 1613, Anesthesia Intra-op, Routine Given 11/04/2020 3:11 PM EDT 80 mcg propofoL (Diprivan) 10 mg/mL bolus injection (Anesthesia) Intravenous, PRN, Starting on Tue11/04/20 at 1510, Until Tue11/04/20 at 1613, Anesthesia Intra-op Given 11/04/2020 3:43 PM EDT 20 mg Given 11/04/2020 3:10 PM EDT 10 mg propofoL (Diprivan) infusion Intravenous, CONTINUOUS PRN, Starting on Tue11/04/20 at 1445, Until Tue11/04/20 at 1613, Anesthesia Intra-op, Routine Rate/Dose Change 11/04/2020 3:35 PM EDT 20 mcg/kg/min 12.42 mL/hr Rate/Dose Change 11/04/2020 3:33 PM EDT 30 mcg/kg/min 18.6 3 mL/hr Rate/Dose Change 11/04/2020 3:14 PM EDT 20 mcg/kg/min 12.4 2 mL/hr sodium chloride 0.9% infusion Intravenous, CONTINUOUS PRN, Starting on Tue11/04/20 at 1437, Until Tue11/04/20 at 1613, Anesthesia Intra-op New Bag 11/04/2020 2:37 PM EDT documented in this encounter Care Teams Housecleaner Floor Relationship Specialty Start Date End Date Jarad Keller DNP PCP - General Family Medicine 06/05/18 02/09/21 documented as of this encounter
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
--- OUTSIDE RECORDS SUMMARY | 2023-12-28 16:37 | XMS_ITS | Encounter Summary ---
[place] [address] Care Team Providers Care Telephone Instrument Supervisor Name Role Phone Jarad Keller DNP Primary Care Provider [phone] Encounter Details Date Type Department Care Team (Late st Contact Info) Description 02/06/2020 2:00 PM EDT Office Visit [place] [address] Sherie Mccallum, EXECUTIVE ACCOUNT MANAGER [facility] [place] [address] Pre-transplant evaluation for kidney transplant Social History [...] of this encounter Progress Notes * Sherie Mccallum, RN - 02/06/2020 2:00 PM EDT I met with Maurice Rudolph for the first evaluation step in the kidney transplant evaluation process. We completed the patient's required consents for evaluation. Also in accordance with OPTN policy, Idiscussed with the patient that a candidate may transfer their waiting time from one transplant center to another. Written materials were provided and the process of transferring wait time was discussed. We also discussed the evaluation process and the reason that the testing (listed below) will be required. He understands that additional testing may be required based on his specific medical history that the transplant team is gathering today. 1. Up to date Immunizations: Flu Shot (yearly), Pneumovax 23 (every 5 years), Prevnar 13 (once in alifetime), Tetanus (every 10 years), Shingles (once in a lifetime) NO SHINGLES IF IMMUNOCOMPROMISED 2. Healthcare Maintenance: Yearly physical, colonoscopy (every 3-10 years depending on results), PSA level (yearly), BRAULIO (yearly except for years that a colonoscopy is done since it will be done withthat procedure) 3. 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 Labs: Serologies (immune status), ABO verification x2, and tissue typing (blood Transfusion in the past 6 weeks) 5. Vascular: JOSÉ MIGUEL's, Carotid Duplex, and possible CT Abdomen and Pelvis if indicated by JOSÉ MIGUEL results 6. Radiology: Chest X-ray 7. Urology: He is currently urinating and he is aware that diabetes is an indication for further urological testing. We discussed VCUG testing is aware this is an indication for further urological testing. 8. Pulmonary: He smoked 1 packs for 15 years (Quit 30 years ago). We discussed Pulmonary Function Testing - [facility] - Wondering about that but never been tested - Maurice reports that most of his medical records can be found at [facility] and . Care providers include CHINO Casanova MD and Dr. Roy (Endocrine). - He would like to complete their transplant specific testing at [facility] or [facility] (pt is indifferent to either) so we can try to coordinate the testing to be on one day. Full day of testing. - Transportation Does not drive. Calls the company and they just come and pick me up. They need 48 hours of lead time. - For scheduling purposes, I have confirmed that the scheduled dialysis days are T/R/Sa. After all required testing has been completed, Maurice will return to clinic for a final evaluation and education prior to being added to the kidney transplant wait list. He understands that more testing could be added and required at any time based on the results of testing. I also discussed with Maurice the importance of contacting us if there are any changes in his health that could delay his evaluation or effect his candidacy for kidney transplant. We discussed living donation and I provided him with a living donor packet of information to look through and hand out to anyone who may be interested in donating a kidney. All questions were answered regarding the kidney transplant evaluation process and I provided him with my contact information so that he can call with anything. I spent 30 minutes providing direct education to the patient. documented in this encounter Plan of Treatment Not on file documented as of this encounter Visit Diagnoses Diagnosis Pre-transplant evaluation for kidney transplant Other specified pre-operative examination documented in this encounter Care Teams Telephone Instrument Supervisor Relationship Specialty Start Date End Date Jarad Keller DNP PCP - General Family Medicine 06/05/18 02/09/21 documented as of this encounter
--- OUTSIDE RECORDS SUMMARY | 2023-12-28 16:37 | XMS_ITS | Encounter Summary ---
[place] [address] Care Team Providers Care Highway Engineering Technician Name Role Phone Jarad Keller DANIKA Primary Care Provider [phone] Reason for Referral * Diagnostic Test (Routine) - Closed Specialty Diagnoses / Procedures Referred By Puneet hallman Referred To Contact Radiology Diagnoses ESRD (end stage renal disease) Procedures IR Dialysis Access - AV Fistula Evaluations Too Morgan MD [facility] [place] [address] [place] [address] Referral ID Status Reason Start Date Expiration Date V isits Requested Visits Authorized [id number] Closed Specialty Service Requested 06/03/2020 12/01/2021 1 1 Reason for Visit * Diagnostic Test (Routine) - Closed Specialty Diagnoses / Procedures Referred By Contariel hallman Referred To Contact Radiology Diagnoses ESRD (end stage renal disease) Procedures IR Dialysis Access - AV Fistula Evaluations Too Morgan MD [facility] [place] [address] [facility] [place] [address] Referral ID Status Reason Start Date Expiration Date V isits Requested Visits Authorized [id number] Closed Specialty Service Requested 06/03/2020 12/01/2021 1 1 Encounter Details Date Type Department Care Team (Latest Contact Info) Description 06/17/2020 2:30 PM EST - 06/17/2020 11:59 PM EST Hospital [place] [address] Too Morgan MD [facility] [place] [address] ESRD on dialysis; Type 2 diabetes mellitus with ESRD (end-stage renal disease); ESRD (end stage renal disease) Discharge Disposition: [...] daily. 01/15/2022 documented as of this encounter H&P Notes * Narinder Rivera MD - 06/17/2020 2:12 PM EST INTERVENTIONAL RADIOLOGY FOCUSED H&P: Procedure: Planned procedure: Left upper extremity fistulagram The patient's history and physical exam have been reviewed and completed. There has been no interval change from that of the pre-operative history and physical exam done within the last 30 days. Physical Exam: Cardiovascular: Regular, Normal Pulmonary: Breath sounds clear to auscultation Vascular: Left upper extremity. Warm, palpable thrill at the wrist. The planned procedure (and sedation plan if appropriate) , its benefits and risks, and alternativeswere discussed with the patient. The patient consented to the procedure. PRE-SEDATION ASSESSMENT: Sedation Plan: anesthesia Current medications reviewed: Yes Allergies reviewed: Yes Source Note - Kameron Rodriguez PA - 06/16/2020 7:42 AM EST Interventional Radiology Focused Pre-procedure H&P: PCP: Jarad Keller APRN Referring Provider: Too Morgan Planned procedure: Left upper extremity fistulagram Procedure indication: End stage renal disease, malfunctioning dialysis access Order Questions Answers Where will study be performed? [facility] Radiology [120] Laterality Left Is the patient on anticoagulant / anitplatelet therapy ? Aspirin Reason for exam and clinical history: decreasing access flows History of present illness: Per chart review, Maurice Rudolph is a 60 y.o. male who presents to Interventional Radiology to undergo left upper extremity fistulagram. Patient undergoes dialysis via left upper extremity AV fistula of unknown provenance. Now reportedly experiencing decreased flows. No prior interventions by [facility] IR. 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 Remainder of patient's medical and surgical history, allergies, medications, and social/family history obtained below as previously outlined in patient's medical record. IR history: none Imaging: none Assessment: 60 y.o. male with malfunctioning dialysis access presenting to Interventional Radiologyfor fistulagram. Plan Planned procedure: Left upper extremity fistulagram Labs to be performed day of procedure: Potassium Sedation: Anesthesia Prophylactic antibiotic : None Contrast: Omnipaque Additional medications for procedure: Lidocaine Position: Supine Consent: Pending Labs: Lab Results Component Value Date HGB 9.6 (L) 08/03/2019 HCT 29.8 (L) 08/03/2019 WBC 5.9 08/03/2019 PLATELET 153 08/03/2019 INR 1.0 02/06/2020 BUN 43 (H) 08/03/2019 CREATININE 5.44 (H) 08/03/2019 ALBUMIN 3.7 08/03/2019 BILIDIR Not Perf 10/19/2018 BILITOT 0.5 08/03/2019 AST 21 08/03/2019 ALT 20 08/03/2019 ALKPHOS 96 08/03/2019 Allergies: Mirtazapine Medications: Current Outpatient Medications on File Prior to Encounter Medication Sig Dispense Refill ??? amLODIPine (Norvasc) 5 mg Tablet Take 2 tablets by mouth daily. 180 tablet 3 ??? OneTouch Verio Flex meter [facility] TEST BLOOD GLUCOSE THREE TIMES A DAY [...] unit (V-GO 20) Device 1 each by [facility].(Non-Drug; Combo Route) route daily. Insulin pump to infuse insulin continuously. Change daily 30 Device 11 ??? epoetin babs-epbx (Retacrit) 10,000 unit/mL Solution [...] current facility-administered medications on file prior to encounter. Past medical/surgical history: Patient Active Problem List [...] per NNB ??? PERIPHERAL IRIDOTOMY 04/06/2012 OD Tresandris ??? PRO EXTRACAPSULAR CATARACT RMVL INSERTION IO LENS PROSTH CPLX WO ECP 07/18/2012 ??? PRO EXTRACAPSULAR CATARACT RMVL INSERTION IO LENS PROSTH W/O ECP 11/29/2012 CATARACT EXTRACTION, EXTRACAPSULAR, W/ LENS INSERTION performed by Erasmo Bajaw MD at [facility] OSC [...] in interventional radiology the day of procedure) 06/16/2020 HERVE High * Kameron Rodriguez PA - 06/16/2020 7:42 AM EST Interventional Radiology Focused Pre-procedure H&P: PCP: Jarad Keller APRN Referring Provider: Too Morgan Planned procedure: Left upper extremity fistulagram Procedure indication: End stage renal disease, malfunctioning dialysis access Order Questions Answers Where will study be performed? [facility] Radiology [120] Laterality Left Is the patient on anticoagulant / anitplatelet therapy ? Aspirin Reason for exam and clinical history: decreasing access flows History of present illness: Per chart review, Maurice Rudolph is a 60 y.o. male who presents to Interventional Radiology to undergo left upper extremity fistulagram. Patient undergoes dialysis via left upper extremity AV fistula of unknown provenance. Now reportedly experiencing decreased flows. No prior interventions by [facility]. 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 Remainder of patient's medical and surgical history, allergies, medications, and social/family history obtained below as previously outlined in patient's medical record. IR history: none Imaging: none Assessment: 60 y.o. male with malfunctioning dialysis access presenting to Interventional Radiologyfor fistulagram. Plan Planned procedure: Left upper extremity fistulagram Labs to be performed day of procedure: Potassium Sedation: Anesthesia Prophylactic antibiotic : None Contrast: Omnipaque Additional medications for procedure: Lidocaine Position: Supine Consent: Pending Labs: Lab Results Component Value Date HGB 9.6 (L) 08/03/2019 HCT 29.8 (L) 08/03/2019 WBC 5.9 08/03/2019 PLATELET 153 08/03/2019 INR 1.0 02/06/2020 BUN 43 (H) 08/03/2019 CREATININE 5.44 (H) 08/03/2019 ALBUMIN 3.7 08/03/2019 BILIDIR Not Perf 10/19/2018 BILITOT 0.5 08/03/2019 AST 21 08/03/2019 ALT 20 08/03/2019 ALKPHOS 96 08/03/2019 Allergies: Mirtazapine Medications: Current Outpatient Medications on File Prior to Encounter Medication Sig Dispense Refill ??? amLODIPine (Norvasc) 5 mg Tablet Take 2 tablets by mouth daily. 180 tablet 3 ??? OneTouch Verio Flex meter [facility] TEST BLOOD GLUCOSE THREE TIMES A DAY [...] unit (V-GO 20) Device 1 each by [facility].(Non-Drug; Combo Route) route daily. Insulin pump to infuse insulin continuously. Change daily 30 Device 11 ??? epoetin babs-epbx (Retacrit) 10,000 unit/mL Solution [...] current facility-administered medications on file prior to encounter. Past medical/surgical history: Patient Active Problem List [...] in interventional radiology the day of procedure) 06/16/2020 HERVE High documented in this encounter Plan of Treatment Not on file documented as of this encounter Procedures Procedure Name Priority Date/Time Associated Diagnosis Comments IR DIALYSIS ACCESS - AV FISTULA EVALUATIONS Routine 06/17/2020 4:08 PM EST ESRD (end stage renal disease) documented in [...] experiencing decreased flows. ??No prior interventions by [facility]. 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 Remainder of patient's medical and surgical history, allergies, medications, and social/family history obtained below as previously outlined in patient's medical record. Per patient he fistula created in [place] about 5 years ago. He has undergone one prior fistulagram in [place] with intervention. Technique: After obtaining informed consent, [...] used to dilate the cephalic stenosis. ??Post COUNTY AGRICULTURAL AGENT radial artery arteriography showed resolution of the [...] stenosis AV anastomosis resolved with 5 mm COUNTY AGRICULTURAL AGENT 3. ??Moderate/severe 2 cm juxta anastomotic cephalic vein stenosis resolved with 6 mm COUNTY AGRICULTURAL AGENT. 4. ??Outflow from elbow centrally via both cephalic and basilic systems without central stenoses. 5. ??Coil from prior intervention at outside hospital in the forearm approximately 4 cm central to the AV anastomosis. ??Presumably placed in a side branch vein. Plan/Disposition: 1) To Same day recovery room, may discharge to home when meets criteria. 2) left upper extremity dialysis fistula ready for use. Contact Lens Inspector(s): Resident/Fellow: Narinder Rivera Attending: Dr. Larson. ??I, Dr. Larson was present throughout this procedure. 06/17/2020 Too Morgan MD [facility] [place] ORDERABLES * (ABNORMAL) Basic Metabolic Panel (non-fasting) (06/17/2020 1:48 PM EST) Glucose 258(H) 65 - 199 mg/dL [facility] Comment:Diabetes: >=200 mg/d L plus symptoms Blood Urea Nitrogen 15 10 - 20 mg/dL [facility] Creatinine 2.44(H) 0.80 - 1.50 mg/dL [facility] Sodium 137 135 - 145 mmol/L [facility] Potassium 4.0 3.5 - 5.0 mmol/L [facility] Comment: Please note: ??Patients with WBC >100,000 may have falsely elevated Potassium levels. ??For accurate Potassium quantification in these patients send serum separator tube (gold top) for subsequent determinations. ??Contact the Clinical Chemistry Laboratory if there are any questions. Chloride 93(L) 98 - 107 mmol/L [facility] Carbon Dioxide 35(H) 22 - 31 mmol/L [facility] Anion Gap 9 5 - 15 mmol/L [facility] Calcium 9.6 8.5 - 10.5 mg/dL [facility] Est Glomerular Filtration Rate 28(L) >=60 mL/min/1. 73 m?? [facility] Comment: This patient? s estimated [...] Lab Too Morgan MD CHEMISTRY ORDERABLE S [facility] [place] [address] * (ABNORMAL) Hemogram (06/17/2020 1:48 PM EST) White Blood Cell 7.0 4.0 - 9.5 x10(3)/mc L [facility] Red Blood Cell 4.09(L) 4.58 - 5.54 x10(6)/mc L [facility] Hemoglobin 12.9(L) 13.7 - 16.5 gm/dL [facility] Hematocrit 37.3(L) 40.5 - 48.5 % [facility] Mean Cell Volume 91.2 82.9 - 93.1 fL [facility] Mean Cell Hemoglobin 31.5 27.5 - 32.1 pg [facility] Mean Cell Hemoglobin Concentration 34.6 32.0 - 35.7 gm/dL [facility] Platelet 142(L) 145 - 357 x10(3)/mc L [facility] RDW Standard Deviation 43.9 36.0 - 45.0 fL [facility] RDW coefficient of variation 13.1 11.4 - 13.8 % [facility] Mean Platelet Volume 10.0 7.6 - 12.9 fL [facility] NRBC% auto 0.0 % [facility] NRBC Absolute 0.000 0.000 - 0.000 x10(3)/mc L [facility] Blood specimen (specimen) 06/17/2020 1:48 PM EST 06/17/2020 2:00 PM EST Narrative Resulting Agency Comment Spec In Lab Too Morgan MD HEMATOLOGY ORDERABL ES [facility] [place] [address] documented in this encounter Visit Diagnoses Diagnosis ESRD on dialysis End stage renal disease Type 2 diabetes mellitus with ESRD (end-stage renal disease) Type II or unspecified type diabetes mellitus with renal manifestations, not stated as uncontrolled ESRD (end stage renal disease) End stage renal disease documented in this encounter Administered Medications Inactive Administered Medications - up to 3 most recent administrations Medication Order MAR Action Action Date Dose Rate Site iohexoL (Omnipaque) (350 mg/mL) injection solution 200 mL 200 mL, Intravenous, ONCE PRN, Starting on Tue06/17/20 at 1608, Until Tue06/18/20 at 0301, Per Protocol, Warning Vesicant/Irritant Medication , Routine Given 06/17/2020 4:11 PM EST 60 mLs documented in this encounter Care Teams Highway Engineering Technician Relationship Specialty Start Date End Date Jarad Keller DNP PCP - General Family Medicine 06/05/18 02/09/21 documented as of this encounter
--- OUTSIDE RECORDS SUMMARY | 2023-12-28 16:37 | XMS_ITS | Encounter Summary ---
[place] [address] Care Team Providers Care Mica Sizer Name Role Phone Jarad Keller DNP Primary Care Provider [phone] Encounter Details Date Type Department Care Team (Late st Contact Info) Description 02/06/2020 11:30 AM EDT Office Visit [place] [address] Pre-transplant evaluation for kidney transplant Social History [...] as of this encounter Progress Notes * Cheryl Presley, RD - 02/06/2020 11:30 AM EDT TRANSPLANT NUTRITION Initial Transplant Note This [facility] underwriter met with Maurice Rudolph a 59 y.o. male on 02/06/20 for nutrition assessment as part of kidney transplant work-up. Patient attended the Kidney Transplant Information session and then metwith members of the transplant team. Past Medical History: Diagnosis Date ??? Acute [...] dialysis, with long-term current use of insulin Diabetic History: T2DM on insulin; last A1c 10.4% as of 01/15/20 (increased from previous 8.6% 08/2019) Dialysis History: HD T//S (initiated in [place] ~4 years ago per pt report) currently through [facility] for the last couple of years Food Record: Breakfast: usually skips breakfast, but occasionally has a breakfast s/w w/ egg, rarely cheese on bread Lunch: hot dog or ramen noodles Dinner: fish or chicken prepared in the Foodie air fryer, corn or peas, pt states she tries to limit starch at dinner meal, especially potatoes concerning high potassium content Snacks: ring ding every now and then Fluid: diet soda (Mountain Dew) and water Additional food/nutrition-related history: Pt reports a fair appetite recently stating I don't eatlike I used to, but I have always eaten too much. Pt states part of the reason he doesn't eat as much is to promote weight control. Pt denies adverse GI symptoms at baseline, as well as difficulty ch lange/swallowing. Pt denies food allergies/intolerances. Pt doesn't CHO count at meals but does tryto limit intake of concentrated sweets. Pt has been educated on renal diet and tries to avoid high potassium and phosphorus food intake - for example, pt stopped drinking dark sodas concerning inorganic phosphate content. Pt confirmed he is followed by a dietitian at dialysis expressing that he has been educated on suggested dietary changes given persistent renal lab abnormalities (hyperphosphatemia) as well as weight loss nutrition therapy given obesity. Pt admits that he does frequently forget to take his phosphorus binders. Emphasized importance of tighter phosphorus control, providing pt with suggestions on how to minimize dietary phosphorus intake especially at lunch meal. Suggested chicken, tuna or egg salad opposed to processed food intake. Pt receptive. Explained importance of tighter blood glucose control discussing most recent A1c. Pt acknowledged increased in A1c attributing it to losing the insulin pump because of insurance. Emphasized importance of regular mealtimes. Discussed portion sizes and label reading for carbohydrate content of foods. Encouraged consistent carbohydrate intake at meals. Especially considering pt's physical activity capabilities are limited asdetailed below, reviewed weight loss nutrition therapy in detail today. Pt accepted Eating for Healthy Blood Sugars and Weight Control booklet with contact info. Reviewed initial weight control efforts and goals, referencing Aim for a Healthy Weight BMI chart. Pt also interested in bariatric surgery referral therefore informative brochure provided. Pt denies food insecurity, stating he and family don't have an issue affording/accessing food as long as I keep my debit card away from my . Discussed pt with his dialysis dietitian (Debra) - Debra expressed concerns regarding pt's memory issues d/t fall which she suspects is primary reason he forgets to take his phos binders at meals. Debrastates that pt exhibits issues with compliance in terms of suggested dietary interventions to promote weight control, improved blood glucose control and correction of renal abnormalities. Debra reports that pt's does not provide much support in terms of promoting/encouraging lifestyle change. Pt's son is supportive however. Physical Activity: pt reports physical activity is limited d/t balance issues. Pt cannot walk long distances but states he engages in light leg exercises on his mini elliptical daily. Encouraged ptto incorporate some more stationary leg and arm exercises throughout the day with the use of exercise bands, chair exercises. Pt receptive. Social History Tobacco Use ??? Smoking status: Former Smoker ??? Smokeless tobacco: Never Used ??? Tobacco comment: quit in his 20's Substance Use Topics ??? Alcohol use: No Education: completed 1 year college Employment: not currently employed Household: pt, , son (age 33) Current Outpatient Medications Medication Sig Dispense Refill ??? mv,iron/folic/D3/om-3/dha/epa (PRORENAL QD ORAL) ProRenal QD oral capsule ??? OneTouch Verio Flex meter [facility] [place] BLOOD GLUCOSE THREE TIMES A DAY [...] unit (V-GO 20) Device 1 each by [facility]Non-Drug; Combo Route) route daily. Insulin pump to [...] No current facility-administered medications for this visit. Anthropometrics Height: 163.8cm Weight: 102.5kg BMI: 38.19kg/m^2 IBW: 60.5kg %IBW: 169% Recent weight change: % Change: Weight goal: ~20# (10%) initial, sustained weight loss from current BW to achieve weight of ~205# and BMI of <35kg/m^2 Labs: 01/15/20 BUN 56 (H) Na 136 Potassium 4.8 CO2 26 Phosphorus 5.9 (H) Calcium 8.3 PTH 269 (H) Albumin 4.0 Total cholesterol 129 HgbA1c 10.4% (H) Nutritional Concerns: Obesity class II, poorly controlled DM with HgbA1c 10.4% as of 01/15/20 with estimated average glucose ~250mg/dL, renal lab abnormalities (hyperphosphatemia), elevated PTH. Assessment/Plan: There are no absolute nutritional contraindications to transplant noted; assessed nutrition risk ashigh given obesity class II, poorly controlled DM demonstrated by most recent A1c, renal lab abnormalities. Counseled pt on low phosphorus nutrition therapy today, encouraging and providing suggestions for improved phosphorus binder adherence. Reviewed weight loss and CHO controlled nutrition therapy, pt accepted Eating for Healthy Blood Sugars and Weight Control booklet with means of contact. Pt interested in bariatric referral - informative brochure provided. Discussed case with pt's dialysis dietitian. Discussed diet modifications post kidney transplant and rationale. Provided printed information as reinforcement of our discussion: Potential Nutrition Issues after Transplant Due to medication SideEffects. Good comprehension verbalized: means for contact provided. Plan communicated to Bus [employer] for Documentation in patient's transplant medical record. Will check in with pt in 3 mo to assess weight loss progress, provide further nutrition education, intervention as needed. Remain available in the meantime for questions/concerns. Cheryl Presley RD documented in this encounter Plan of Treatment Not on file documented as of this encounter Visit Diagnoses Diagnosis Pre-transplant evaluation for kidney transplant Other specified pre-operative examination documented in this encounter Care Teams Mica Sizer Relationship Specialty Start Date End Date Jarad Keller DNP PCP - General Family Medicine 06/05/18 02/09/21 documented as of this encounter
--- OUTSIDE RECORDS SUMMARY | 2023-12-28 16:37 | XMS_ITS | Encounter Summary ---
Author Organization [facility] [place] [address] Care Team Providers Care Flame Annealing Machine Operator Name Role Phone Jarad Keller DANIKA Primary Care Provider Reason for Referral * Consultation (Routine) - Closed Specialty Diagnoses / Procedures Referred By Puneet hallman Referred To Contact Transplant Diagnoses ESRD (end stage renal disease) Procedures Txp Too Lynn MD [facility] [place] [address] Young Watts MD [facility] [place] [address] Referral ID Status Reason Start Date Expiration Date V isits Requested Visits Authorized [id number] Closed Consult, Test & Treat 12/18/2019 12/17/2020 1 1 Encounter Details Date Type Department Care Team (Late st Contact Info) Description 12/18/2019 Orders Only [place] [address] Too Morgan MD [facility] [place] [address] ESRD (end stage renal disease) (Primary Dx); Pre-transplant evaluation for kidney transplant Social History [...] Visit Diagnoses Diagnosis ESRD (end stage renal disease)- Primary End stage renal disease Pre-transplant evaluation for kidney transplant Other specified pre-operative examination documented in this encounter Care Teams Flame Annealing Machine Operator Relationship Specialty Start Date End Date Jarad Keller DNP PCP - General Family Medicine 06/05/18 02/09/21 documented as of this encounter
--- OUTSIDE RECORDS SUMMARY | 2023-12-28 16:37 | XMS_ITS | Encounter Summary ---
[place] [address] Care Team Providers Care Manager Revenue Name Role Phone Jarad Keller DNP Primary Care Provider [phone] Encounter Details Date Type Department Care Team (Late st Contact Info) Description 01/01/2020 [place] [address] Becca Bansal Social History Tobacco Use Types Packs/Day Years [...] on filedocumented in this encounter Care Teams Manager Revenue Relationship Specialty Start Date End Date Jarad Keller DNP PCP - General Family Medicine 06/05/18 02/09/21 documented as of this encounter
--- OUTSIDE RECORDS SUMMARY | 2023-12-28 16:37 | XMS_ITS | Encounter Summary ---
[place] [address] Care Team Providers Care Fiscal Technician Name Role Phone Jarad Keller DNP Primary Care Provider [phone] Encounter Details Date Type Department Care Team (Late st Contact Info) Description 02/06/2020 3:00 PM EDT Office Visit [place] [address] Encounter for pre-transplant evaluation for kidney transplant [...] of this encounter Progress Notes * Cherelle Colvin RN - 02/06/2020 3:00 PM EDT Patient not seen this encounter. documented in this encounter Plan of Treatment Not on file documented as of this encounter Visit Diagnoses Diagnosis Encounter for pre-transplant evaluation for kidney transplant documented in this encounter Care Teams Fiscal Technician Relationship Specialty Start Date End Date Jarad Keller DNP PCP - General Family Medicine 06/05/18 02/09/21 documented as of this encounter
--- OUTSIDE RECORDS SUMMARY | 2023-12-28 16:37 | XMS_ITS | Encounter Summary ---
[place] [address] Care Team Providers Care Wrap Knitting Machine Operator Name Role Phone Jarad Keller DANIKA Primary Care Provider [phone] Encounter Details Date Type Department Care Team (Latest Contact Info) Description 02/06/2020 3:30 PM EDT Laboratory Appointment Lab [address] [place] [address] Coronary artery disease, angina presence unspecified, unspecified vessel or lesion type, unspecified whether [place] or transplanted heart; Benign prostatic hyperplasia, unspecified [...] Procedure Name Priority Date/Time Associated Diagnosis Comments ABORH RECHECK STATUS Routine 02/06/2020 2:48 PM EDT HC HERPES TYPE II AB, IGG Routine 02/06/2020 2:48 PM EDT Coronary artery disease, angina presence unspecified, unspecified vessel or lesion type, unspecified whether [place] or transplanted heart Benign prostatic hyperplasia, unspecified [...] unspecified vessel or lesion type, unspecified whether [place] or transplanted heart Benign prostatic hyperplasia, unspecified whether lower urinary tract symptoms present Diabetes mellitus due to underlying condition with diabetic nephropathy, 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 End stage renal disease Pre-transplant evaluation for kidney transplant HC EBV (VCA) AB Routine 02/06/2020 2:48 PM EDT Coronary artery disease, angina presence unspecified, unspecified vessel or lesion type, unspecified whether [place] or transplanted heart Benign prostatic hyperplasia, unspecified whether lower urinary tract symptoms present Diabetes mellitus due to underlying condition with diabetic nephropathy, 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 End stage renal disease Pre-transplant evaluation for kidney transplant HC HEP B CORE AB IGM Routine 02/06/2020 2:48 PM EDT Coronary artery disease, angina presence unspecified, unspecified vessel or lesion type, unspecified whether [place] or transplanted heart Benign prostatic hyperplasia, unspecified whether lower urinary tract symptoms present Diabetes mellitus due to underlying condition with diabetic nephropathy, 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 End stage renal disease Pre-transplant evaluation for kidney transplant HC SYPHILIS ANTIBODY Routine 02/06/2020 2:48 PM EDT Coronary artery disease, angina presence unspecified, unspecified vessel or lesion type, unspecified whether [place] or transplanted heart Benign prostatic hyperplasia, unspecified whether lower urinary tract symptoms present Diabetes mellitus due to underlying condition with diabetic nephropathy, 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 End stage renal disease Pre-transplant evaluation for kidney transplant HC PCH FRUCTOSAMINE Routine 02/06/2020 2 :48 PM EDT Coronary artery disease, angina presence unspecified, unspecified vessel or lesion type, unspecified whether [place] or transplanted heart Benign prostatic hyperplasia, unspecified whether lower urinary tract symptoms present Diabetes mellitus due to underlying condition with diabetic nephropathy, 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 End stage renal disease Pre-transplant evaluation for kidney transplant ABO/RH TYPING Routine 02/06/2020 2:48 PM EDT Coronary artery disease, angina presence unspecified, unspecified vessel or lesion type, unspecified whether [place] or transplanted heart Benign prostatic hyperplasia, unspecified whether lower urinary tract symptoms present Diabetes mellitus due to underlying condition with diabetic nephropathy, 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 End stage renal disease Pre-transplant evaluation for kidney transplant HC VENIPUNCTURE Routine 02/06/2020 2:48 PM EDT Coronary artery disease, angina presence unspecified, unspecified vessel or lesion type, unspecified whether [place] or transplanted heart Benign prostatic hyperplasia, unspecified whether lower urinary tract symptoms present Diabetes mellitus due to underlying condition with diabetic nephropathy, 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 End stage renal disease Pre-transplant evaluation for kidney transplant HC TOXO AB IGG Routine 02/06/2020 2:48 PM EDT Coronary artery disease, angina presence unspecified, unspecified vessel or lesion type, unspecified whether [place] or transplanted heart Benign prostatic hyperplasia, unspecified whether lower urinary tract symptoms present Diabetes mellitus due to underlying condition with diabetic nephropathy, 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 End stage renal disease Pre-transplant evaluation for kidney transplant HC HIV SCREEN, 4TH GENERATION Routine 02/06/2020 2:48 PM EDT Coronary artery disease, angina presence unspecified, unspecified vessel or lesion type, unspecified whether [place] or transplanted heart Benign prostatic hyperplasia, unspecified whether lower urinary tract symptoms present Diabetes mellitus due to underlying condition with diabetic nephropathy, 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 End stage renal disease Pre-transplant evaluation for kidney transplant HC HEPATITIS B SURFACE AB Routine 02/06/2020 2:48 PM EDT Coronary artery disease, angina presence unspecified, unspecified vessel or lesion type, unspecified whether [place] or transplanted heart Benign prostatic hyperplasia, unspecified whether lower urinary tract symptoms present Diabetes mellitus due to underlying condition with diabetic nephropathy, 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 End stage renal disease Pre-transplant evaluation for kidney transplant HC HEPATITIS B SURFACE AG Routine 02/06/2020 2:48 PM EDT Coronary artery disease, angina presence unspecified, unspecified vessel or lesion type, unspecified whether [place] or transplanted heart Benign prostatic hyperplasia, unspecified whether lower urinary tract symptoms present Diabetes mellitus due to underlying condition with diabetic nephropathy, 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 End stage renal disease Pre-transplant evaluation for kidney transplant HC CMV AB IGG Routine 02/06/2020 2:48 PM EDT Coronary artery disease, angina presence unspecified, unspecified vessel or lesion type, unspecified whether [place] or transplanted heart Benign prostatic hyperplasia, unspecified whether lower urinary tract symptoms present Diabetes mellitus due to underlying condition with diabetic nephropathy, 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 End stage renal disease Pre-transplant evaluation for kidney transplant HC PARTIAL THROMBOPLASTIN TIME Routine 02/06/2020 2:48 PM EDT Coronary artery disease, angina presence unspecified, unspecified vessel or lesion type, unspecified whether [place] or transplanted heart Benign prostatic hyperplasia, unspecified whether lower urinary tract symptoms present Diabetes mellitus due to underlying condition with diabetic nephropathy, 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 End stage renal disease Pre-transplant evaluation for kidney transplant HC PROTHROMBIN TIME Routine 02/06/2020 2 :48 PM EDT Coronary artery disease, angina presence unspecified, unspecified vessel or lesion type, unspecified whether [place] or transplanted heart Benign prostatic hyperplasia, unspecified whether lower urinary tract symptoms present Diabetes mellitus due to underlying condition with diabetic nephropathy, 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 End stage renal disease Pre-transplant evaluation for kidney transplant ANTIBODY SCREEN Routine 02/06/2020 2:48 PM EDT Coronary artery disease, angina presence unspecified, unspecified vessel or lesion type, unspecified whether [place] or transplanted heart Benign prostatic hyperplasia, unspecified whether lower urinary tract symptoms present Diabetes mellitus due to underlying condition with diabetic nephropathy, 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 End stage renal disease Pre-transplant evaluation for kidney transplant HC ANTIBODY DETECTION,CAPTURE-R Routine 02/06/2020 2:48 PM EDT Coronary artery disease, angina presence unspecified, unspecified vessel or lesion type, unspecified whether [place] or transplanted heart Benign prostatic hyperplasia, unspecified whether lower urinary tract symptoms present Diabetes mellitus due to underlying condition with diabetic nephropathy, 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 End stage renal disease Pre-transplant evaluation for kidney transplant HC VARICELLA ZOSTER ANTIBODY Routine 02/06/2020 2:48 PM EDT Coronary artery disease, angina presence unspecified, unspecified vessel or lesion type, unspecified whether [place] or transplanted heart Benign prostatic hyperplasia, unspecified whether lower urinary tract symptoms present Diabetes mellitus due to underlying condition with diabetic nephropathy, 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 End stage renal disease Pre-transplant evaluation for kidney transplant HC PROSTATE SPECIFIC ANTIGEN Routine 02/06/2020 2:48 PM EDT Coronary artery disease, angina presence unspecified, unspecified vessel or lesion type, unspecified whether [place] or transplanted heart Benign prostatic hyperplasia, unspecified [...] unspecified vessel or lesion type, unspecified whether [place] or transplanted heart Benign prostatic hyperplasia, unspecified whether lower urinary tract symptoms present Diabetes mellitus due to underlying condition with diabetic nephropathy, 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 End stage renal disease Pre-transplant evaluation for kidney transplant documented in this encounter Results * ABORH Recheck Status (02/06/2020 2:48 PM EDT) ABORH Type Recheck Completed [facility] Blood specimen (specimen) 02/06/2020 2:48 PM EDT 02/06/2020 2:57 PM EDT Narrative Resulting Agency Comment Spec In Lab Young Coronado MD BLOOD BANK LAB ORDER ROBBIE [facility] [place] [address] * Antibody screen (02/06/2020 2:48 PM EDT) Pathologist [facility] Ab Screen Interp Negative [facility] Expires at [id number] on: 02/09/2020 [facility] Blood specimen (specimen) 02/06/2020 2:48 PM EDT 02/06/2020 2:57 PM EDT Narrative Resulting Agency Comment Spec In Lab Young Coronado MD BLOOD BANK LAB ORDER ROBBIE Performing Organization Address City/[facility]/ZIP Co de Phone Number [facility] [place] [address] * ABO/Rh Typing (02/06/2020 2:48 PM EDT) ABORH Type A Pos [facility] Blood specimen (specimen) 02/06/2020 2:48 PM EDT 02/06/2020 2:57 PM EDT Narrative Resulting Agency Comment Spec In Lab Young Coronado MD BLOOD BANK LAB ORDER ROBBIE [facility] [place] [address] * APTT (02/06/2020 2:48 PM EDT) [facility] Partial Thromboplastin Time 35 25 - 37 sec [facility] Comment: The PTT is NOT appropriate for heparin monitoring. Use the Anti-Xa level for heparin monitoring (HEP UFH) or LMWH monitoring (HEP LMW). A PTT less than 37 seconds generally indicates adequate hemostasis. Blood specimen (specimen) 02/06/2020 2:48 PM EDT 02/06/2020 2:57 PM EDT Narrative Resulting Agency Comment Spec In Lab Young Coronado MD HEMATOLOGY ORDERABLE S Performing Organization Address [facility] de Phone Number [facility] [place] [address] * Prothrombin Time (02/06/2020 2:48 PM EDT) Prothrombin Time 11.1 9.4 - 12.5 sec [facility] International Normalization Ratio 1.0 [facility] Comment: An INR <2.0 indicates adequate [...] MD HEMATOLOGY ORDERABLE S Performing Organization Address [facility] Co de Phone Number [facility] [place] [address] * Hepatitis B Core Antibody, IgM (02/06/2020 2:48 PM EDT) Hepatitis B Core IgM Negative Negative [facility] Blood specimen (specimen) 02/06/2020 2:48 PM EDT 02/06/2020 2:57 PM EDT Narrative Resulting Agency Comment Spec In Lab Young Coronado MD CHEMISTRY ORDERABLES Performing Organization Address [facility] Co de Phone Number [facility] [place] [address] * Hepatitis B Surface Antibody (02/06/2020 2:48 PM EDT) Hepatitis B Surface Antibody, Quantitative 52.5 IU/L [facility] Comment: HepB Surface Ab Quant: Unvaccinated: < 8.5 IU/L Vaccinated: > 11.5 IU/L Hepatitis B Surface Antibody Positive [facility] Comment: Patient is considered to be immune to HBV infection. Expected Results: Vaccinated: Positive Unvaccinated: Negative Blood specimen (specimen) 02/06/2020 2:48 PM EDT 02/06/2020 2:57 PM EDT Narrative Resulting Agency Comment Spec In Lab Young Coronado MD CHEMISTRY ORDERABLES Performing Organization Address City/[facility]/ZIP Co de Phone Number [facility] [place] [address] * Hepatitis B Surface Antigen (02/06/2020 2:48 PM EDT) Hepatitis B Surface Antigen Negative Negative [facility] Blood specimen (specimen) 02/06/2020 2:48 PM EDT 02/06/2020 2:57 PM EDT Narrative Resulting Agency Comment Spec In Lab Yuong Coronado MD CHEMISTRY ORDERABLES Performing Organization Address City/[facility]/ZIP Co de Phone Number [facility] [place] [address] * Hepatitis C Antibody (02/06/2020 2:48 PM EDT) Hepatitis C Antibody Negative Negative [facility] Blood specimen (specimen) 02/06/2020 2:48 PM EDT 02/06/2020 2:57 PM EDT Narrative Resulting Agency Comment Spec In Lab Young Coronado MD CHEMISTRY ORDERABLES Performing Organization Address City/[facility]/ZIP Co de Phone Number [facility] [place] [address] * CMV Antibody, IgG (02/06/2020 2:48 PM EDT) CMV IgG Negative Negative [facility] Blood specimen (specimen) 02/06/2020 2:48 PM EDT 02/07/2020 7:33 AM EDT Narrative Resulting Agency Comment Spec In Lab Young Coronado MD IMMUNOLOGY ORDERABLE S Performing Organization Address City/[facility]/ZIP Co de Phone Number [facility] [place] [address] * (ABNORMAL) Carlie-St Virus Antibodies (02/06/2020 2:48 PM EDT) EBV (VCA) IgG Ab Pos(A) Neg [facility] EBV (VCA) IgM Ab Neg Neg [facility] EBNA Antibodies Pos(A) Neg [facility] EBV Interpretation Results suggest past infection. [facility] Comment: In most populations, at least [...] MD IMMUNOLOGY ORDERABLE S Performing Organization Address City/[facility]/ZIP Co de Phone Number [facility] [place] [address] * (ABNORMAL) HSV 1 and 2 IgG Antibodies (02/06/2020 2:48 PM EDT) HSV Type 1 Ab, IgG Pos(A) Neg [facility] HSV Type 2 Ab, IgG Pos(A) Neg [facility] Blood specimen (specimen) 02/06/2020 2:48 PM EDT 02/07/2020 7:33 AM EDT Narrative Resulting Agency Comment Spec In Lab Young Coronado MD IMMUNOLOGY ORDERABLE S Performing Organization Address [facility] Co de Phone Number [facility] [place] [address] * HIV Screen, 4th Generation (MC/CGP/APD/NLH) (02/06/2020 2:48 PM EDT) HIV Ab/Ag Screen Negative Negative [facility] Comment: This 4th Generation HIV test [...] Coronado MD CHEMISTRY ORDERABLES Performing Organization Address [facility]/ZIP Co de Phone Number [facility] [place] [address] * Syphilis Screening Antibody with reflex RPR (02/06/2020 2:48 PM EDT) Pathologist [facility] Syphilis IgG/IgM Negative Negative [facility] Blood specimen (specimen) 02/06/2020 2:48 PM EDT 02/06/2020 2:57 PM EDT Narrative Resulting Agency Comment Spec In Lab Young Coronado MD CHEMISTRY ORDERABLES Performing Organization Address [facility] Co de Phone Number [facility] [place] [address] * (ABNORMAL) Toxoplasma Antibody, IgG (02/06/2020 2:48 PM EDT) Toxoplasma Antibody IgG Positive( A) Negative [facility] Blood specimen (specimen) 02/06/2020 2:48 PM EDT 02/07/2020 7:33 AM EDT Narrative Resulting Agency Comment Spec In Lab Young Coronado MD IMMUNOLOGY ORDERABLE S Performing Organization Address [facility]/ZIP Co de Phone Number [facility] [place] [address] * Varicella zoster Antibody, IgG (02/06/2020 2:48 PM EDT) Varicella Zoster Antibody IgG Pos [facility] Blood specimen (specimen) 02/06/2020 2:48 PM EDT 02/07/2020 7:33 AM EDT Narrative Resulting Agency Comment Spec In Lab Young Coronado MD IMMUNOLOGY ORDERABLE S Performing Organization Address [facility] de Phone Number [facility] [place] [address] * (ABNORMAL) Fructosamine (02/06/2020 2:48 PM EDT) Pathologist [facility] Fructosamine (AUGUST) 556(H) 200 - 285 mcmol/L [facility] Comment: Test Performed by: [facility] [place] [address] Hand Knitter: Marquise Dobbs M.D. Ph.D.; CLIA# [id number] Blood specimen (specimen) 02/06/2020 2:48 PM EDT 02/06/2020 3:59 PM EDT Narrative Resulting Agency Comment Spec In Lab Young Coronado MD LAB SEND OUT ORDERAB LES Performing Organization Address [facility] Co de Phone Number [facility] [place] [address] * (ABNORMAL) Hemoglobin A1c (02/06/2020 2:48 PM EDT) Hemoglobin A1c 10.0(H) 4.3 - 5.6 % [facility] Comment: Reference Range: 4.3 - 5.6% [...] 1, S67-74 Estimated Average Glucose 239 mg/dL [facility] Comment: eAG equivalents for HbA1c percentages: [...] into estimated average glucose values. ??Diabetes Care 2008:31(8):1670-3807. Blood specimen (specimen) 02/06/2020 2:48 PM EDT 02/06/2020 2:57 PM EDT Narrative Resulting Agency Comment Spec In Lab Young Coronado MD CHEMISTRY ORDERABLES [facility] [place] [address] * PSA (Ultrasensitive) (02/06/2020 2:48 PM EDT) Prostate Specific Antigen (Ultrasensitive ) 0.57 0.00 - 4.00 ng/mL [facility] Comment: PLEASE NOTE: The above reference interval is intended for healthy males with an intact prostate. Values within this reference interval may indicate recurrence in men who have undergone radical prostatectomy. Blood specimen (specimen) 02/06/2020 2:48 PM EDT 02/06/2020 2:57 PM EDT Narrative Resulting Agency Comment Spec In Lab Young Ramirez Daily CHEMISTRY ORDERABLES Performing Organization Address City/[facility] Co de Phone Number [facility] [place] [address] * (ABNORMAL) C-peptide (02/06/2020 2:48 PM EDT) C-Peptide 10.8(H) 0.8 - 5.2 ng/mL [facility] Blood specimen (specimen) 02/06/2020 2:48 PM EDT 02/06/2020 2:57 PM EDT Narrative Resulting Agency Comment Spec In Lab Young Ramirez Daily CHEMISTRY ORDERABLES Performing Organization Address City/[facility] Co de Phone Number [facility] [place] [address] documented in this encounter Visit Diagnoses Diagnosis Coronary artery disease, angina presence unspecified, unspecified vessel or lesion type, unspecified whether [place] or transplanted heart Benign prostatic hyperplasia, unspecified whether lower urinary tract symptoms present Diabetes mellitus due to underlying condition with diabetic nephropathy, 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
--- OUTSIDE RECORDS SUMMARY | 2023-12-28 16:37 | XMS_ITS | Encounter Summary ---
[place] [address] Care Team Providers Care Financial Supervisor Name Role Phone Jarad Keller DNP Primary Care Provider [phone] Encounter Details Date Type Department Care Team (Late st Contact Info) Description 05/20/2020 Orders Only [place] [address] Nettie Davis, [facility] [place] [address] Social History Tobacco Use Types Packs/Day Years [...] on filedocumented in this encounter Care Teams Financial Supervisor Relationship Specialty Start Date End Date Jarad Keller DNP PCP - General Family Medicine 06/05/18 02/09/21 documented as of this encounter
--- OUTSIDE RECORDS SUMMARY | 2023-12-28 16:37 | XMS_ITS | Encounter Summary ---
Author Organization Formerly [facility] [place] [address] Care Team Providers Care Actuarial Mathematician Name Role Phone Jarad Keller DNP Primary Care Provider [phone] Reason for Visit * Reason Comments Procedure Encounter Details Date Type Department Care Team (Latest Contact Info) Description 12/07/2019 10:00 AM EDT Procedure [place] [address] Harmeet Arvizu MD [facility] [place] [address] Proliferative diabetic retinopathy of left eye with [...] this encounter Patient Instructions * Patient Instructions* Mimi Rios - 12/07/2019 10:00 AM EDT Today you had your left eye(s) injected with a medication called Eylea today. -Please pay attention to your future scheduled [...] about driving: We always recommend having a full service vending driver on the day you get an [...] Normal and Not Expected side effects: Call [phone] (Eye Clinic) DAY or NIGHT, HOLIDAY or WEEKEND if you experience any of the following: = Severe, increasing pain in the eye = Significant, dramatic vision loss = Redness on and around the eye that gets worse, not better = Severe light sensitivity Call 911 or go to the Emergency room immediately if you experience = Chest pain = Abdominal pain = Weakness or numbness on any part of your body = Slurred speech = Or any other symptoms of concern documented in this encounter Progress Notes * Harmeet Arvizu MD - 12/07/2019 10:00 AM EDT ASSESSMENT: 1. 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 documented in this encounter Results * Intravitreal Injection Pharmacologic Agent - OS - Left Eye (12/07/2019 11:02 AM EDT) Anatomical Region Laterality Modality Other Narrative 12/07/2019 11:02 AM EDT Pre Operative Diagnosis: Diabetic Macular Edema - Diabetic Retinopathy Post Operative Diagnosis: Diabetic Macular Edema - Diabetic Retinopathy Procedure: Intravitreal Injection of Eylea 2.0 mg left eye Assist: Photography Colorist Anesthesia: Topical Proparacaine and topical 4% Lidocaine Complications: None Procedure: The patient was taken to the minor treatment suite where the patient was reidentified using name and birthdate as critical identifiers. The correct eye as the operative site was reidentified by a preplaced site maria r, and the consent form was actively reviewed by the child care assistant and the surgeon. The left eye was prepped including instillation of Betadine 5% into the left cul de sac for 5 minutes, facial prep with ophthalmic Betadine and placement of a lid speculum. The Surgeon performed hand washing preoperatively, used gloves, and wore a face mask or used no talking technique during the procedudre, as did the certified surgical technician. After topical anesthesia of the injection site [...] call the Eye Clinic or Eye Doctor pinion polisher, should they develop pain the treated eye, increasing redness or a discharge from the eye. 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 Blindness of right eye, unspecified left eye visual impairment category documented in this encounter Administered Medications Inactive Administered Medications - up to 3 most recent administrations Medication Order MAR Action Action Date Dose Rate Site aflibercept (EYLEA) ophthalmic injection 2 mg 2 mg, Intravitreal, ONCE, 1 dose, On Tue12/07/19 at 1130, Routine Given 12/07/2019 11:30 AM EDT 2 mg Left Eye documented in this encounter Care Teams Actuarial Mathematician Relationship Specialty Start Date End Date Jarad Keller DNP PCP - General Family Medicine 06/05/18 02/09/21 documented as of this encounter
--- OUTSIDE RECORDS SUMMARY | 2023-12-28 16:37 | XMS_ITS | Encounter Summary ---
[place] [address] Care Team Providers Care Woodenware Assembler Name Role Phone Jarad Keller DNP Primary Care Provider [phone] Encounter Details Date Type Department Care Team (Late st Contact Info) Description 01/18/2020 Telephone [place] [address] Sherie Mccallum, COIN PURSE ASSEMBLER [facility] [place] [address] Social History Tobacco Use Types Packs/Day Years [...] Telephone Encounter - Sherie Mccallum, RN - 01/18/2020 12:53 PM EDT I contacted Maurice Rudolph to get a brief history prior to scheduling for kidney transplant evaluation. Cause of Kidney Disease: Diabetes Dialysis: [address] [place] [address] Height: 5'4 Weight: 100kg BMI: 37.8 Past Medical History: Diagnosis Date ??? Acute [...] - Dr Bajwa Social History Tobacco Use Smoking Status Former Smoker Smokeless Tobacco Never Used Tobacco Comment quit in his 20's Social History Substance and Sexual Activity Drug Use No Do you have any dental issues, do you see a dentist regularly? No teeth Have you ever been in counseling or received psychiatric treatment? Little bit, many many years ago Does your current income meet your monthly needs? Yes Date of Transplant Evaluation: February 06, 2020 Demographics confirmed. documented in this encounter Plan of Treatment Not on file documented as of this encounter Visit Diagnoses Not on filedocumented in this encounter Care Teams Woodenware Assembler Relationship Specialty Start Date End Date Jarad Keller DNP PCP - General Family Medicine 06/05/18 02/09/21 documented as of this encounter
--- OUTSIDE RECORDS SUMMARY | 2023-12-28 16:37 | XMS_ITS | Encounter Summary ---
[place] [address] Care Team Providers Care International Trade Analyst Name Role Phone Jarad Keller DNP Primary Care Provider [phone] Encounter Details Date Type Department Care Team (Late st Contact Info) Description 05/20/2020 Orders Only Nephrology [place] [address] Nettie Davis, WEB OFFSET PRESS FEEDER [facility] [place] [address] Social History Tobacco Use Types Packs/Day Years [...] on filedocumented in this encounter Care Teams International Trade Analyst Relationship Specialty Start Date End Date Jarad Keller DNP PCP - General Family Medicine 06/05/18 02/09/21 documented as of this encounter
--- OUTSIDE RECORDS SUMMARY | 2023-12-28 16:37 | XMS_ITS | Encounter Summary ---
Author Organization [facility] [place] [address] Care Team Providers Care Binder Sorter Name Role Phone Jarad Keller DNP Primary Care Provider [phone] Reason for Visit * Reason Comments Procedure Encounter Details Date Type Department Care Team (Latest Contact Info) Description 01/04/2020 6:15 PM EDT Procedure [place] [address] Harmeet Arvizu MD [facility] [place] [address] Proliferative diabetic retinopathy of left eye with [...] this encounter Patient Instructions * Patient Instructions* Ana Balderas 01/04/2020 6:15 PM EDT Today you had your left eye(s) [...] about driving: We always recommend having a industrial tractor driver on the day you get an [...] Normal and Not Expected side effects: Call [phone] (Eye Clinic) DAY or NIGHT, HOLIDAY or WEEKEND if you experience any of the following: = Severe, increasing pain in the eye = Significant, dramatic vision loss = Redness on and around the eye that gets worse, not better = Severe light sensitivity Call [phone] or go to the Emergency room immediately if you experience = Chest pain = Abdominal pain = Weakness or numbness on any part of your body = Slurred speech = Or any other symptoms of concern documented in this encounter Plan of Treatment Not on file documented as of this encounter Procedures Procedure Name Priority Date/Time Associated Diagnosis Comments INTRAVITREAL INJECTION PHARMACOLOGIC AGENT - OS - LEFT EYE Routine 01/04/2020 3:22 PM EDT 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 documented in this encounter Results * Intravitreal Injection Pharmacologic Agent - OS - Left Eye (01/04/2020 3:22 PM EDT) Anatomical Region Laterality Modality Other Narrative 01/04/2020 3:22 PM EDT Pre Operative Diagnosis: Diabetic Macular Edema - Diabetic Retinopathy Post Operative Diagnosis: Diabetic Macular Edema - Diabetic Retinopathy Procedure: Intravitreal Injection of Eylea 2.0 mg left eye Assist: Tankage Grinder Anesthesia: Topical Proparacaine and topical 4% Lidocaine Complications: None Procedure: The patient was taken to the minor treatment suite where the patient was reidentified using name and birthdate as critical identifiers. The correct eye as the operative site was reidentified by a preplaced site maria r, and the consent form was actively reviewed by the general assistant and the surgeon. The left eye was prepped including instillation of Betadine 5% into the left cul de sac for 5 minutes, facial prep with ophthalmic Betadine and placement of a lid speculum. The Surgeon performed hand washing preoperatively, used gloves, and wore a face mask or used no talking technique during the procedudre, as did the surgical technologist. After topical anesthesia of the injection site [...] call the Eye Clinic or Eye Doctor economics lecturer, should they develop pain the treated eye, increasing redness or a discharge from the eye. 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
--- OUTSIDE RECORDS SUMMARY | 2023-12-28 16:37 | XMS_ITS | Encounter Summary ---
[place] [address] Care Team Providers Care Piston Maker Name Role Phone Jarad Keller DNP Primary Care Provider [phone] Encounter Details Date Type Department Care Team (Late st Contact Info) Description 07/30/2020 Telephone [place] [address] Cecilia Brooke LPN Social History Tobacco Use Types Packs/Day Years [...] encounter Miscellaneous Notes * Telephone Encounter - Cecilia Brooke LPN - 07/30/2020 10:13 AM EDT Called and spoke with staff at [facility]. Per staff recent hemoglobin A1C completed 07/08/20 was 11. Faxing over labs to [phone]. Advised to call back kidney transplant clinic with any questions or updates. documented in this encounter Plan of Treatment Not on file documented as of this encounter Visit Diagnoses Not on filedocumented in this encounter Care Teams Piston Maker Relationship Specialty Start Date End Date Jarad Keller DNP PCP - General Family Medicine 06/05/18 02/09/21 documented as of this encounter
--- OUTSIDE RECORDS SUMMARY | 2023-12-28 16:37 | XMS_ITS | Encounter Summary ---
[place] [address] Care Team Providers Care Regional Rehabilitation Director Name Role Phone Jarad Keller DNP Primary Care Provider [phone] Encounter Details Date Type Department Care Team (Late st Contact Info) Description 02/06/2020 12:30 PM EDT Office Visit [place] [address] Awaiting organ transplant status Social History Tobacco Use Types Packs/Day Years [...] as of this encounter Progress Notes * Ana Hernández - 02/06/2020 12:30 PM EDT Transplant Professor Of Criminal Justice Note: Met with patient during the Kidney Class appointment to review medical and pharmacy benefits for transplant services. He is covered by Medicare [facility], B, [facility] as well as [place] Medicaid. He states that the dialysis FC ([facility], [facility]) helps him with his Medicaid. He describes being on a spend down- he gives his medical bills to [facility] to submit to Medicaid. We reviewed the post transplant medication list in detail, including estimated copays for each medication - A copy of this list was provided to the patient. They are facing approximately $ 106.60 permonth in post transplant medication costs. He states the ability to manage this cost. I need to keep my debit card away from my . Financial Clearance: Cleared for living and donor kidney transplant. Coverage Review: Primary Insurance: Medicare AB Secondary Plan: [place] Medicaid Pharmacy Carrier: [employer] part D Phone: Drug Dose/Form # for 30 Days Copay 30 Day Supply PA Required? Mail Order Available Copay 90 Day Supply Prograf 1mg cap 180 caps $0 $ Cellcept 250 mg cap 180 caps $0 $ Myfortic 360 mg tab 120 tabs $ $ Bactrim SS tab 30 tabs $3.60 $ Mepron 750 mg/5ml 150 ml $ $ Diltiazem CD 120 mg tablet 30 tabs $3.60 $ K Phos Original 500 mg tab 120 tabs $75.00 Not covered by Medicare part D $ Magnesium Gluconate 500 mg tab 120 tabs $10-$25 OVER THE COUNTER, [place] AT LOCAL PHARMACY $ Pantoprazole 40 mg cap 30 tabs $3.60 $ Nystatin 100K units/ml 600 ml $3.60 $ Valcyte 450 mg tab 60 tabs $3.60 $ Valtrex 500 mg tab 60 tabs $3.60 $ $106.60 documented in this encounter Plan of Treatment Not on file documented as of this encounter Visit Diagnoses Diagnosis Awaiting organ transplant status documented in this encounter Care Teams Regional Rehabilitation Director Relationship Specialty Start Date End Date Jarad Keller DNP PCP - General Family Medicine 06/05/18 02/09/21 documented as of this encounter
--- OUTSIDE RECORDS SUMMARY | 2023-12-28 16:37 | XMS_ITS | Encounter Summary ---
[place] [address] Care Team Providers Care Electrician Office Name Role Phone Jarad Keller DANIKA Primary Care Provider [phone] Reason for Referral * Consultation (Routine) - Closed Specialty Diagnoses / Procedures Referred By Puneet hallman Referred To Contact Neurology Diagnoses Diego, Too Wood MD [facility] [place] [address] [facility] [place] [facility] [address] [place] [id number] Referral ID Status Reason Start Date Expiration Date Visits Re quested Visits Authorized [id number] Closed 09/04/2020 09/04/2021 12 12 Encounter Details Date Type Department Care Team (Late st Contact Info) Description 09/04/2020 Orders Only Neph[place] [address] Too Morgan MD [facility] [place] [address] Fall, sequela Social History Tobacco Use Types Packs/Day Years [...] Scheduled Referrals Name Type Priority Associated Diagnoses Orde r Schedule Referral to Physical Therapy Outpatient Referral Routine Fall, sequela Ordered: 09/04/2020 documented as of this encounter Visit Diagnoses Diagnosis Fall, sequela documented in this encounter Care Teams Electrician Office Relationship Specialty Start Date End Date Jarad Keller DNP PCP - General Family Medicine 06/05/18 02/09/21 documented as of this encounter
--- OUTSIDE RECORDS SUMMARY | 2023-12-28 16:37 | XMS_ITS | Encounter Summary ---
[place] [address] Care Team Providers Care Absorption And Adsorption Engineer Name Role Phone Jarad Keller DNP Primary Care Provider [phone] Reason for Visit * Reason Onset Date Comments Appointment 04/18/2020 Encounter Details Date Type Department Care Team (Late st Contact Info) Description 04/18/2020 Telephone [place] [address] Harmeet Arvizu MD [facility] [place] [address] Appointment Social History Tobacco Use Types Packs/Day [...] * Telephone Encounter - Shanika Minaya - 04/18/2020 1:10 PM EST Patient scheduled * Telephone Encounter - Margaret Hayden - 04/18/2020 8:12 AM EST Patient had to cancel appointment due to transportation issues. You are off the next two weeks which is his time frame. Please review and advise on scheduling. documented in this encounter Plan of Treatment Not on file documented as of this encounter Visit Diagnoses Not on filedocumented in this encounter Care Teams Absorption And Adsorption Engineer Relationship Specialty Start Date End Date Jarad Keller DNP PCP - General Family Medicine 06/05/18 02/09/21 documented as of this encounter
--- OUTSIDE RECORDS SUMMARY | 2023-12-28 16:37 | XMS_ITS | Encounter Summary ---
[place] [address] Care Team Providers Care Core Feeder Name Role Phone Jarad Keller DANIKA Primary Care Provider [phone] Reason for Referral * Diagnostic Test (Routine) - Closed Specialty Diagnoses / Procedures Referred By Puneet hallman Referred To Contact Radiology Diagnoses ESRD (end stage renal disease) Procedures IR Dialysis Access - AV Fistula Evaluations Too Morgan MD [facility] [place] [address] [place] [address] Referral ID Status Reason Start Date Expiration Date V isits Requested Visits Authorized [id number] Closed Specialty Service Requested 10/21/2020 04/22/2022 1 1 Reason for Visit * Diagnostic Test (Routine) - Closed Specialty Diagnoses / Procedures Referred By Puneet hallman Referred To Contact Radiology Diagnoses ESRD (end stage renal disease) Procedures IR Dialysis Access - AV Fistula Evaluations Too Morgan MD [facility] [place] [address] [facility] [place] [address] Referral ID Status Reason Start Date Expiration Date V isits Requested Visits Authorized [id number] Closed Specialty Service Requested 10/21/2020 04/22/2022 1 1 Encounter Details Date Type Department Care Team (Latest Contact Info) Description 11/04/2020 2:30 PM EDT - 11/04/2020 11:59 PM EDT Hospital [place] [address] Too Morgan MD [facility] [place] [address] ESRD (end stage renal disease) Discharge Disposition: [...] H&P Notes * Narinder Rivera MD - 11/04/2020 2:08 PM EDT INTERVENTIONAL RADIOLOGY FOCUSED H&P: Procedure: Planned procedure: Left Upper extremity fistulogram. The patient's history and physical exam have been reviewed and completed. There has been no interval change from that of the pre-operative history and physical exam done within the last 30 days. Physical Exam: Vascular: palpable thrill left upper extremity fistula. The planned procedure (and sedation plan if appropriate) , its benefits and risks, and alternativeswere discussed with the patient. The patient consented to the procedure. PRE-SEDATION ASSESSMENT: Sedation Plan: anesthesia Current medications reviewed: Yes Allergies reviewed: Yes Source Note - Narinder Rivera MD - 10/30/2020 9:11 AM EDT Images from the original note were not included. INTERVENTIONAL RADIOLOGY FOCUSED H&P and PRE-PROCEDURE NOTE: PCP: Jarad Keller APRN Referring Provider: Too Morgan Planned Procedure: Planned procedure: Left Upper extremity fistulogram. Procedure Indication: LUE AVF with decreasing access flow and history of AV stenosis. Procedure request received through Interventional Radiology eDH order queue. Order Questions Answers Where will study be performed? [facility] Radiology [120] Laterality Left Is the patient on anticoagulant / antiplatelet therapy ? Aspirin Reason for exam and clinical history: fistulagram for LLA AVF, for decreasing access flow and history of AV stenosis Presenting Diagnosis/ Complaint: Maurice Rudolph is a 60 y.o. male, IR consulted for left upper extremity AV fistulogram and possible intervention. Patient has left upper extremity AV fistula with decreasing access flow and history of AV stenosis. Patient undergoes dialysis via left upper extremity AV fistula of unknown timeline. Patient has Mallampati of 4, scheduled with anaesthesia. Last IR intervention on 06/17/20: 1. Severe stenosis AV anastomosis resolved with 5 mm GLAZING MACHINE OPERATOR. 2. Moderate/severe 2 cm juxta anastomotic cephalic vein stenosis resolved with 6 mm GLAZING MACHINE OPERATOR. 3. Outflow from elbow centrally via both cephalic and basilic systems without central stenoses. 4. Coil from prior intervention at outside hospital in the forearm approximately 4 cm central to the AV anastomosis. Presumably placed in a side branch vein. Per chart review past medical history of hypertension, type 2 diabetes and GERD, other past medicalhistory and past surgical history as below. Past Medical/Surgical History: Patient Active Problem List Diagnosis Code ??? [...] AV Fistula Evaluations 06/17/2020 Kimani Larson MD [facility] INTERVENTIONL RAD ??? PERIPHERAL IRIDOTOMY 04/06/2012 OD Swendris ??? PRO EXTRACAPSULAR CATARACT RMVL INSERTION IO LENS PROSTH CPLX WO ECP 07/18/2012 ??? PRO EXTRACAPSULAR CATARACT RMVL INSERTION IO LENS PROSTH W/O ECP 11/29/2012 CATARACT EXTRACTION, EXTRACAPSULAR, W/ LENS INSERTION performed by Erasmo Bajwa MD at [facility] OSC ? ? PRO REPAIR COMPLEX RETINA DETACH VITRECTOMY & MEMB PEEL 04/03/2012, 04/03/12 REPAIR COMPLEX RETINAL DETACHMENT, W/ VITRECTOMY, MEMBRANE PEELING performed by Matteo Diane MD at [facility] MAIN OR ? ? PRO REPAIR COMPLEX RETINA DETACH VITRECTOMY & MEMB PEEL 07/31/2012 REPAIR COMPLEX RETINAL DETACHMENT, W/ VITRECTOMY, MEMBRANE PEELING performed by Matteo Diane MD at [facility] MAIN OR ? ? PRO REPAIR COMPLEX RETINA DETACH VITRECTOMY & MEMB PEEL 01/08/2013 REPAIR COMPLEX RETINAL DETACHMENT, W/ VITRECTOMY, MEMBRANE PEELING performed by Matteo Diane MD at [facility] MAIN OR ??? PRO TX EXTENSIVE RETINOPATHY, PHOTOCOAGULATION 07/06/2011 OS CBC ??? PRO TX EXTENSIVE RETINOPATHY, PHOTOCOAGULATION 07/27/2011 OS CBC ??? PRO TX EXTENSIVE RETINOPATHY, PHOTOCOAGULATION 09/21/2011 OS CBC ??? PRO TX EXTENSIVE RETINOPATHY, PHOTOCOAGULATION 12/20/2011 OS MANN ??? PRO TX EXTENSIVE RETINOPATHY, PHOTOCOAGULATION 01/04/2012 OS MANN ??? VITRECTOMY, W/ MEMBRANE STRIPPING 04/03/2012 OD, CBC ??? YAG CAPSULOTOMY 11/15/2013 OS - Dr Bajwa Medications: Current Outpatient Medications on File Prior [...] 10 Code: E11.65) 15 mL 5 ??? Drakeaglsilvia Campo U-100 Insulin 100 unit/mL (3 mL) pen [...] facility-administered medications on file prior to encounter. Allergies: Mirtazapine Social History and Habits: Social History Socioeconomic History ??? Marital status: Spouse name: Not on file ??? Number of children: Not on file ??? Years of education: Not on file ??? Highest education level: Not on file Occupational History ??? Occupation: unemployed Tobacco Use ??? Smoking status: Former Smoker ??? Smokeless tobacco: Never Used ??? Tobacco comment: quit in his 20's Vaping Use ??? Vaping Use: Never used Substance and Sexual Activity ??? Alcohol use: No ??? Drug use: No ??? Sexual activity: Not on file Comment: deferred Other Topics Concern ??? Not on file Social History Narrative Pt lives with and son. Social Determinants of Health Financial Resource Strain: ??? Difficulty of Paying Living Expenses: Food Insecurity: ??? Worried About Running Out of Food in the Last Year: ??? Ran Out of Food in the Last Year: Transportation Needs: ??? Lack of Transportation (Medical): ??? Lack of Transportation (Non-Medical): Physical Activity: ??? Days of Exercise per Week: ??? Minutes of Exercise per Session: Significant Family History: Family History Problem Relation Age [...] Neg Hx Pertinent ROS: as per HPI Labs: Lab Results Component Value Date WBC 7.0 06/17/2020 HCT 37.3 (L) 06/17/2020 PLATELET 142 (L) 06/17/2020 INR 1.0 02/06/2020 BUN 15 06/17/2020 CREATININE 2.44 (H) 06/17/2020 ALKPHOS 96 08/03/2019 AST 21 08/03/2019 ALBUMIN 3.7 08/03/2019 BILIDIR Not Perf 10/19/2018 BILITOT 0.5 08/03/2019 ALT 20 08/03/2019 PROT 8.3 (H) 08/03/2019 K 4.0 06/17/2020 Imaging: Physical Exam: Pending (to be performed in angio the day of procedure) ASA: Pending (to be assessed in angio the day of procedure) Mallampati Class: Pending (to be assessed in angio the day of procedure) Assessment: 60 y.o. male IR consulted for left upper extremity AV fistulogram and possible intervention. Patient has left upper extremity AV fistula with decreasing access flow and history of AV stenosis. Patient undergoes dialysis via left upper extremity AV fistula of unknown timeline. Plan: Plan Planned procedure: Left Upper extremity fistulogram. Labs to be performed day of procedure: PLT, Coags, Potassium Sedation: Anesthesia Prophylactic antibiotic : None Contrast: Omnipaque Additional medications for procedure: Lidocaine Planned access site: left upper extremity. Position: Supine Consent: Scanned Medications to discontinue (and days held): None Cytopathology presence needed: No Case Urgency:: G- Other (non E or F elective cases) 10/30/2020 * Narinder Rivera MD - 10/30/2020 9:11 AM EDT Images from the original note were not included. INTERVENTIONAL RADIOLOGY FOCUSED H&P and PRE-PROCEDURE NOTE: PCP: Jarad Keller APRN Referring Provider: Too Morgan Planned Procedure: Planned procedure: Left Upper extremity fistulogram. Procedure Indication: LUE AVF with decreasing access flow and history of AV stenosis. Procedure request received through Interventional Radiology eDH order queue. Order Questions Answers Where will study be performed? [facility] Radiology [120] Laterality Left Is the patient on anticoagulant / antiplatelet therapy ? Aspirin Reason for exam and clinical history: fistulagram for LLA AVF, for decreasing access flow and history of AV stenosis Presenting Diagnosis/ Complaint: Maurice Rudolph is a 60 y.o. male, IR consulted for left upper extremity AV fistulogram and possible intervention. Patient has left upper extremity AV fistula with decreasing access flow and history of AV stenosis. Patient undergoes dialysis via left upper extremity AV fistula of unknown timeline. Patient has Mallampati of 4, scheduled with anaesthesia. Last IR intervention on 06/17/20: 1. Severe stenosis AV anastomosis resolved with 5 mm GLAZING MACHINE OPERATOR. 2. Moderate/severe 2 cm juxta anastomotic cephalic vein stenosis resolved with 6 mm GLAZING MACHINE OPERATOR. 3. Outflow from elbow centrally via both cephalic and basilic systems without central stenoses. 4. Coil from prior intervention at outside hospital in the forearm approximately 4 cm central to the AV anastomosis. Presumably placed in a side branch vein. Per chart review past medical history of hypertension, type 2 diabetes and GERD, other past medicalhistory and past surgical history as below. Past Medical/Surgical History: Patient Active Problem List Diagnosis Code ??? [...] AV Fistula Evaluations 06/17/2020 Kimani Larson MD [facility] INTERVENTIONL RAD ??? PERIPHERAL IRIDOTOMY 04/06/2012 OD Swendris ??? PRO EXTRACAPSULAR CATARACT RMVL INSERTION IO LENS PROSTH CPLX WO ECP 07/18/2012 ??? PRO EXTRACAPSULAR CATARACT RMVL INSERTION IO LENS PROSTH W/O ECP 11/29/2012 CATARACT EXTRACTION, EXTRACAPSULAR, W/ LENS INSERTION performed by Erasmo Bajwa MD at [facility] OSC ? ? PRO REPAIR COMPLEX RETINA DETACH VITRECTOMY & MEMB PEEL 04/03/2012, 04/03/12 REPAIR COMPLEX RETINAL DETACHMENT, W/ VITRECTOMY, MEMBRANE PEELING performed by Matteo Diane MD at [facility] MAIN OR ? ? PRO REPAIR COMPLEX RETINA DETACH VITRECTOMY & MEMB PEEL 07/31/2012 REPAIR COMPLEX RETINAL DETACHMENT, W/ VITRECTOMY, MEMBRANE PEELING performed by Matteo Diane MD at [facility] MAIN OR ? ? PRO REPAIR COMPLEX RETINA DETACH VITRECTOMY & MEMB PEEL 01/08/2013 REPAIR COMPLEX RETINAL DETACHMENT, W/ VITRECTOMY, MEMBRANE PEELING performed by Matteo Diane MD at [facility] MAIN OR ??? PRO TX EXTENSIVE RETINOPATHY, PHOTOCOAGULATION 07/06/2011 OS CBC ??? PRO TX EXTENSIVE RETINOPATHY, PHOTOCOAGULATION 07/27/2011 OS CBC ??? PRO TX EXTENSIVE RETINOPATHY, PHOTOCOAGULATION 09/21/2011 OS CBC ??? PRO TX EXTENSIVE RETINOPATHY, PHOTOCOAGULATION 12/20/2011 OS MANN ??? PRO TX EXTENSIVE RETINOPATHY, PHOTOCOAGULATION 01/04/2012 OS MANN ??? VITRECTOMY, W/ MEMBRANE STRIPPING 04/03/2012 OD, CBC ??? YAG CAPSULOTOMY 11/15/2013 OS - Dr Bajwa Medications: Current Outpatient Medications on File Prior [...] facility-administered medications on file prior to encounter. Allergies: Mirtazapine Social History and Habits: Social History Socioeconomic History ??? Marital status: Spouse name: Not on file ??? Number of children: Not on file ??? Years of education: Not on file ??? Highest education level: Not on file Occupational History ??? Occupation: unemployed Tobacco Use ??? Smoking status: Former Smoker ??? Smokeless tobacco: Never Used ??? Tobacco comment: quit in his 20's Vaping Use ??? Vaping Use: Never used Substance and Sexual Activity ??? Alcohol use: No ??? Drug use: No ??? Sexual activity: Not on file Comment: deferred Other Topics Concern ??? Not on file Social History Narrative Pt lives with and son. Social Determinants of Health Financial Resource Strain: ??? Difficulty of Paying Living Expenses: Food Insecurity: ??? Worried About Running Out of Food in the Last Year: ??? Ran Out of Food in the Last Year: Transportation Needs: ??? Lack of Transportation (Medical): ??? Lack of Transportation (Non-Medical): Physical Activity: ??? Days of Exercise per Week: ??? Minutes of Exercise per Session: Significant Family History: Family History Problem Relation Age [...] Neg Hx Pertinent ROS: as per HPI Labs: Lab Results Component Value Date WBC 7.0 06/17/2020 HCT 37.3 (L) 06/17/2020 PLATELET 142 (L) 06/17/2020 INR 1.0 02/06/2020 BUN 15 06/17/2020 CREATININE 2.44 (H) 06/17/2020 ALKPHOS 96 08/03/2019 AST 21 08/03/2019 ALBUMIN 3.7 08/03/2019 BILIDIR Not Perf 10/19/2018 BILITOT 0.5 08/03/2019 ALT 20 08/03/2019 PROT 8.3 (H) 08/03/2019 K 4.0 06/17/2020 Imaging: Physical Exam: Pending (to be performed in angio the day of procedure) ASA: Pending (to be assessed in angio the day of procedure) Mallampati Class: Pending (to be assessed in angio the day of procedure) Assessment: 60 y.o. male IR consulted for left upper extremity AV fistulogram and possible intervention. Patient has left upper extremity AV fistula with decreasing access flow and history of AV stenosis. Patient undergoes dialysis via left upper extremity AV fistula of unknown timeline. Plan: Plan Planned procedure: Left Upper extremity fistulogram. Labs to be performed day of procedure: PLT, Coags, Potassium Sedation: Anesthesia Prophylactic antibiotic : None Contrast: Omnipaque Additional medications for procedure: Lidocaine Planned access site: left upper extremity. Position: Supine Consent: Scanned Medications to discontinue (and days held): None Cytopathology presence needed: No Case Urgency:: G- Other (non E or F elective cases) 10/30/2020 documented in this encounter Plan of Treatment Not on file documented as of this encounter Procedures Procedure Name Priority Date/Time Associated Diagnosis Comments IR DIALYSIS ACCESS - AV FISTULA EVALUATIONS Routine 11/04/2020 4:01 PM EDT ESRD (end stage renal disease) documented [...] technique under ultrasound guidance and a 4 [place]ian sheath placed facing peripherally. ??4 [place] sheath exchanged over guidewire for a 6 [place]ian sheath. ??Guidewire and angled catheter were placed [...] to AV anastomosis, resolved with 7 mm GLAZING MACHINE OPERATOR. 3. Coil from prior intervention at outside hospital in the forearm, unchanged from 06/17/20. 4. AV anastomosis not stenotic. Plan/Disposition: 1) To Same Day for recovery, may discharge to home when meets criteria. 2) Left arm dialysis fistula ready for use. Climbing Guide(s): Resident/Fellow: Narinder Rivera Attending: Dr. Larson. ??I, Dr. Larson was present throughout this procedure. 11/04/2020 Too Morgan MD IMG IR ORDERABLES documented in this encounter Visit Diagnoses Diagnosis ESRD (end stage renal disease) End stage renal disease documented in this encounter Administered Medications Inactive Administered Medications - up to 3 most recent administrations Medication Order MAR Action Action Date Dose Rate Site iohexoL (Omnipaque) (350 mg/mL) injection solution 50 mL 50 mL, Intravenous, ONCE PRN, 1 dose, Starting on Tue11/04/20 at 1554, Until Tue11/04/20 at 1554, Per Protocol, Warning Vesicant/Irritant Medication , Angio/IR (Intra-Procedure), Routine Given 11/04/2020 3:54 PM EDT 35 mLs documented in this encounter Care Teams Core Feeder Relationship Specialty Start Date End Date Jarad Keller DNP PCP - General Family Medicine 06/05/18 02/09/21 documented as of this encounter
--- OUTSIDE RECORDS SUMMARY | 2023-12-28 16:37 | XMS_ITS | Encounter Summary ---
Author Organization [facility] [place] [address] Care Team Providers Care District Sales Coordinator Name Role Phone Jarad Keller DNP Primary Care Provider [phone] Reason for Visit * Reason Comments Procedure Eylea OS #2/3 Encounter Details Date Type Department Care Team (Latest Contact Info) Description 02/15/2020 2:00 PM EDT Procedure [place] [address] Harmeet Arvizu MD [facility] [place] [address] Proliferative diabetic retinopathy of left eye with [...] Instructions * Patient Instructions* Nicolette Caldwell - 02/15/2020 2:00 PM EDT Today you had your left [...] about driving: We always recommend having a carry all driver on the day you get an [...] Normal and Not Expected side effects: Call [phone] (Eye Clinic) DAY or NIGHT, HOLIDAY or WEEKEND if you experience any of the following: = Severe, increasing pain in the eye = Significant, dramatic vision loss = Redness on and around the eye that gets worse, not better = Severe light sensitivity Call [phone] or go to the Emergency room immediately if you experience = Chest pain = Abdominal pain = Weakness or numbness on any part of your body = Slurred speech = Or any other symptoms of concern documented in this encounter Progress Notes * Harmeet Arvizu MD - 02/15/2020 2:00 PM EDT ASSESSMENT: 1. 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 documented in this encounter Results * Intravitreal Injection Pharmacologic Agent - OS - Left Eye (02/15/2020 3:17 PM EDT) Anatomical Region Laterality Modality Other Narrative 02/15/2020 3:17 PM EDT Pre Operative Diagnosis: Diabetic Macular Edema - Diabetic Retinopathy Post Operative Diagnosis: Diabetic Macular Edema - Diabetic Retinopathy Procedure: Intravitreal Injection of Eylea 2.0 mg left eye Assist: Assistant Chief Of Police Anesthesia: Topical Proparacaine and topical 4% Lidocaine Complications: None Procedure: The patient was taken to the minor treatment suite where the patient was reidentified using name and birthdate as critical identifiers. The correct eye as the operative site was reidentified by a preplaced site maria r, and the consent form was actively reviewed by the virtual office assistant and the surgeon. The left eye was prepped including instillation of Betadine 5% into the left cul de sac for 5 minutes, facial prep with ophthalmic Betadine and placement of a lid speculum. The Surgeon performed hand washing preoperatively, used gloves, and wore a face mask or used no talking technique during the procedudre, as did the surgical services director. After topical anesthesia of the injection site [...] call the Eye Clinic or Eye Doctor marketing community liaison, should they develop pain the treated eye, [...] 2 mg, Intravitreal, ONCE, 1 dose, On Tue02/15/20 at 1545, Routine Given 02/15/2020 3:45 PM EDT 2 mg Left Eye documented in this encounter Care Teams District Sales Coordinator Relationship Specialty Start Date End Date Jarad Keller DNP PCP - General Family Medicine 06/05/18 02/09/21 documented as of this encounter
--- OUTSIDE RECORDS SUMMARY | 2023-12-28 16:38 | XMS_ITS | Encounter Summary ---
Author Organization [facility] Address [facility] [place] [address] Care Team Providers Care Panelbeater Name Role Phone Jarad Keller DANIKA Primary Care Provider [phone] Reason for Referral * Physical Therapy (Routine) - Closed Specialty Diagnoses / Procedures Referred By Contac t Referred To Contact Diagnoses Closed nondisplaced fracture of shaft of right clavicle, initial encounter Closed fracture of proximal end of right humerus, unspecified fracture morphology, initial encounter Louis Vergara MD [facility] [place] [address] Unknown None Referral ID Status Reason Start Date Expiration Date V isits Requested Visits Authorized [id number] Closed Evaluate and Treat 08/24/2019 02/20/2020 12 12 Reason for Visit * Consultation (Urgent) - Specialty Diagnoses / Procedures Referred By Contac t Referred To Contact Orthopaedics Diagnoses RIGHT 2 PART PROX HUM FX, NON SAIDPLACED MIDSHAFT CLAVICLE FX AND R SCAPULAR BODY FX DOI 07/29/2019 Toni Maya MD [facility] [place] [address] [facility] [address] [place] [address] Referral ID Status Reason Start Date Expiration Date V isits Requested Visits Authorized [id number] 07/30/2019 07/29/2020 1 1 Encounter Details Date Type Department Care Team (Latest Contact Info) Description 08/24/2019 8:00 AM EDT TH Visit (TeleHealth) Orthopaedics at [facility] [place] [address] Louis Vergara MD [facility] [place] [address] Closed fracture of proximal end of right humerus, unspecified fracture morphology, initial encounter (Primary Dx); Closed nondisplaced fracture of shaft of right clavicle, initial encounter Social History Tobacco Use Types Packs/Day [...] as of this encounter Progress Notes * Louis Vergara MD - 08/24/2019 8:00 AM EDT Orthopaedic Telephone Note DOI: 07/30/2019 Orthopedic Injuries: Right humerus greater tuberosity fracture, right clavicle fracture, possible nondisplaced right scapula fracture At [facility] Had repeat xrays of the right shoulder on 08/15 Still feels like can't do much with the right shoulder. Not too much pain however. Can't lift the arm at all Has been doing PT Feels like it is just not moving. Index, thumb, middle feel slightly numb, just since the injury. Still in a sling. RHD Lives with and child normally in [place]. Imaging: Right shoulder xrays with minimally displaced midshaft clavicle fracture and displaced greater tuberosity fracture without significant change in alignment on recent xrays. A/P: 59M with multiple medical comorbidities with a displaced right Greater tuberosity fracture and minimally displaced right clavicle fracture. We discussed options. I discussed his high surgical risk. We discussed the potential for poor function without surgical intervention, as well as the potential improvement with surgery. He is also almost 4 weeks out from injury at this point, which would make surgical fixation more difficult. He elected to proceed with nonoperative management, which I think is most reasonable. He has no pain currently, suggesting healing. I recommended physical therapy, no active abduction of the shoulder for 8 weeks from injury. F/u in 6 weeks with repeat xrays 4 views of the right shoulder. documented in this encounter Plan of Treatment Scheduled Referrals Name Type Priority Associated Diagnoses Orde r Schedule Referral to Physical Therapy Outpatient Referral Routine Closed nondisplaced fracture of shaft of right clavicle, initial encounter Closed fracture of proximal end of right humerus, unspecified fracture morphology, initial encounter Ordered: 08/24/2019 documented as of this encounter Visit Diagnoses Diagnosis Closed fracture of proximal end of right humerus, unspecified fracture morphology, initial encounter- Primary Closed nondisplaced fracture of shaft of right clavicle, initial encounter documented in this encounter Care Teams Panelbeater Relationship Specialty Start Date End Date Jarad Keller DNP PCP - General Family Medicine 06/05/18 02/09/21 documented as of this encounter
--- OUTSIDE RECORDS SUMMARY | 2023-12-28 16:38 | XMS_ITS | Encounter Summary ---
Author Organization [facility] [place] [address] Care Team Providers Care Civil Division Commander Deputy Sheriff Name Role Phone Jarad Keller DANIKA Primary Care Provider [phone] Reason for Visit * Reason Comments Eye Problem Procedure * Consultation (Routine) - Closed Specialty Diagnoses / Procedures Referred By Puneet hallman Referred To Contact Ophthalmology Diagnoses dme os Rylan Carrero M, OD [address] [place] [address] Harmeet rAvizu MD [facility] [place] [place] [address] Referral ID Status Reason Start Date Expiration Date V isits Requested Visits Authorized [id number] Closed Consult, Test & Treat 04/04/2019 04/03/2020 1 1 Encounter Details Date Type Department Care Team (Latest Contact Info) Description 10/12/2019 2:30 PM EDT Office [place] [address] Harmeet Arvizu MD [facility] [place] [address] Proliferative diabetic retinopathy of left eye with [...] Patient Instructions * Patient Instructions* Mimi Rios Atul - 10/12/2019 2:30 PM EDT Today you had your left [...] about driving: We always recommend having a driver salesman on the day you get an injection. [...] Normal and Not Expected side effects: Call [phone] (Eye Clinic) DAY or NIGHT, HOLIDAY or [...] Progress Notes * Harmeet Arvizu MD - 10/12/2019 2:30 PM EDT ASSESSMENT: 1. 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 Blindness of right eye, unspecified left eye visual impairment category Reestablishing care here at [facility]. Previous CBC patient last seen 2013. Since then has been in [place] with retina care on and off. 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 Multiple surgeries. S. Oil in eye. OS: S/p PRP. No prior injections. Recent fall with traumatic brain injury and bleed. Since then left eye vision has been worse. Treats diabetes with insulin. Last Ha1c 8.6 07/2019 Visual Acuity Visual Acuity (Snellen - Linear) Right Left Dist cc LP 20/200 +1 Dist ph cc NI Near cc unable 20/200 Correction: Glasses Exam Findings 10/12/19: OD: Severe scarring, grossly attached, PCIOL-- pupillary rim syneched to PCIOL OS: Druse. central heme and edema, full PRP. PCIOL PLAN: Vision loss may not be completely explained by central DME, but since he is monocular we will try injections to improve vision. We will start with Eylea OS since VA less than 20/50. If vision OS does not improve despite improvement in DME, then consider referral to Dr. Gaming for eval of vision loss due to brain/head injury. Hospitalization in [place]. Some note available in scan docs. 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 Left Eye Quality was good. Findings include cystoid macular edema, intraretinal fluid. Notes Central DME OS Harmeet Arvizu MD OPHTHALMOLOGY SERVIC ES ORDERABLES documented in this encounter Visit Diagnoses Diagnosis 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 Blindness of right eye, unspecified left eye visual impairment category documented in this encounter Care Teams Civil Division Commander Deputy Sheriff Relationship Specialty Start Date End Date Jarad Keller DNP PCP - General Family Medicine 06/05/18 02/09/21 documented as of this encounter
--- OUTSIDE RECORDS SUMMARY | 2023-12-28 16:38 | XMS_ITS | Encounter Summary ---
[place] [address] Care Team Providers Care International Manager Name Role Phone Jarad Keller DNP Primary Care Provider [phone] Encounter Details Date Type Department Care Team (Late st Contact Info) Description 08/28/2019 Telephone [place] [id number] Kameron Frey Social History Tobacco Use Types Packs/Day Years [...] encounter Miscellaneous Notes * Telephone Encounter - Kameron Frey - 08/29/2019 2:00 PM EDT Returned the patient's physician's phone call and relayed the message from Dr. Vergara. He appreciates the call but would like further clarification. He was given Dr. Vergara's cell phone number for him to discuss directly with Dr. Vergara. * Telephone Encounter - Kameron Frey - 08/28/2019 11:08 AM EDT Patient's physician from [facility], Dr. Stephens, called to inquire about the patient's weightbearing status. He already has the last note from the patient's visit on 24 August 2019. This message was forwarded to Dr. Vergara for guidance. documented in this encounter Plan of Treatment Not on file documented as of this encounter Visit Diagnoses Not on filedocumented in this encounter Care Teams International Manager Relationship Specialty Start Date End Date Jarad Keller DNP PCP - General Family Medicine 06/05/18 02/09/21 documented as of this encounter
--- OUTSIDE RECORDS SUMMARY | 2023-12-28 16:38 | XMS_ITS | Encounter Summary ---
[place] [address] Care Team Providers Care Sample Sewer Name Role Phone Jarad Keller DNP Primary Care Provider [phone] Encounter Details Date Type Department Care Team (Late st Contact Info) Description 08/07/2019 12:05 AM EDT Ancillary Procedure [place] [address] Jarad Keller DNP [address] [place] [address] Social History Tobacco Use Types Packs/Day Years [...] Associated Diagnosis Comments FILM LIBRARY STORAGE ONLY CT CHEST Routine 08/07/2019 12:05 AM EDT documented in this encounter Results * Film Library- Storage Only CT Chest (08/07/2019 12:05 AM EDT) Narrative ALEXANDER SIMMONS - 08/17/2019 8:01 AM EDT This exam is auto-finalizing. It's purpose is for storage only. Jarad Keller DNP IMG FILM LIBRARY OR DERABLES Performing Organization Address City/State/[facility] Co de Phone Number [place], [place] documented in this encounter Visit Diagnoses Not on filedocumented in this encounter Care Teams Sample Sewer Relationship Specialty Start Date End Date Jarad Keller DNP PCP - General Family Medicine 06/05/18 02/09/21 documented as of this encounter
--- OUTSIDE RECORDS SUMMARY | 2023-12-28 16:38 | XMS_ITS | Encounter Summary ---
[place] [address] Care Team Providers Care Ballast Inspector Name Role Phone Jarad Keller DNP Primary Care Provider [phone] Reason for Visit * Reason Onset Date Comments Prior Authorization 10/02/2019 Encounter Details Date Type Department Care Team (Late st Contact Info) Description 10/02/2019 Telephone [place] [id number] Paris Duque Prior Authorization Social History Tobacco Use Types Packs/Day Years [...] encounter Miscellaneous Notes * Telephone Encounter - Ceasar Roy MD - 10/02/2019 4:41 PM EDT Thanks Enma. Cherelle you had just sent a message yesterday stating that basaglar is confirmed and I believe I signed that Rx. Can you confirm that Basaglar is ok? Happy to sign Rx for levemir if needed * Telephone Encounter - Paris Duque - 10/02/2019 9:31 AM EDT Rec'd PA for patient's Lantus Levemir is preferred documented in this encounter Plan of Treatment Not on file documented as of this encounter Visit Diagnoses Not on filedocumented in this encounter Care Teams Ballast Inspector Relationship Specialty Start Date End Date Jarad Keller DNP PCP - General Family Medicine 06/05/18 02/09/21 documented as of this encounter
--- OUTSIDE RECORDS SUMMARY | 2023-12-28 16:38 | XMS_ITS | Encounter Summary ---
[place] [address] Care Team Providers Care Chemical Equipment Repairer Name Role Phone Jarad Keller DNP Primary Care Provider [phone] Reason for Visit * Reason Onset Date Comments Follow-up 08/07/2019 Encounter Details Date Type Department Care Team (Late st Contact Info) Description 08/07/2019 [place] [phone] Louis Vergara MD [facility] [place] [address] Follow-up Social History Tobacco Use Types Packs/Day [...] encounter Miscellaneous Notes * Telephone Encounter - Cheli Guzman - 08/16/2019 11:00 AM EDT Yohannes called back from [facility] regarding the appointments for tomorrow: He is able to be transported here tomorrow by stretcher and they do have a person that could stay with him However the Ambulance refuses unless they are provided with a letter documenting that the patient would be transferred to one of our stretchers here and would have transport with form our facility tothe different appointments. I see that his appointment with Lavern Govea has been cancelled. Do you want his appointment in General Surgery to be kept? Appointment pending for tomorrow 08/17/19 Yohannes called back and is looking into his status to see if he is able to be transported here since he has many appointments on the schedule for this Tuesday. She is not sure if it can work since he would need a stretcher transfer and a nurse in attendance with him while he is here. He has an appointment with Gen Surg and Neuro Surge as well so will need to connect with them if alternate plans are needed. Gen Surgery [id number]- Jacinta [facility] Neurosurgery- [id number] Lavern Govea Yohannes can be reached at [facility] at [phone] * Telephone Encounter - Cheli Guzman - 08/15/2019 4:02 PM EDT Yohannes called back and is looking into his status to see if he is able to be transported here since he has many appointments on the schedule for this Tuesday. She is not sure if it can work since he would need a stretcher transfer and a nurse in attendance with him while he is here. He has an appointment with Gen Surg and Neuro Surge as well so will need to connect with them if alternate plans are needed. Gen Surgery [id number]- Jacinta [facility] Neurosurgery- [id number] Lavern Govea * Telephone Encounter - Cheli Guzman - 08/15/2019 3:35 PM EDT I called for a status update on Maurice, left message for Yohannes at [facility]. She can be patchedover to [place] when she calls back. * Telephone Encounter - Cheli Guzman - 08/07/2019 3:[address] Vergara advised ok for telephone visit. I called back to arrange the appointment with Dr. Vergara this Tuesday for a telephone office visit. Yohannes at [facility] was going to give me the phone number in his room to call him when she noticed he was transported acutely this morning 08/07/19 to [place]. She said he may return to them if he improves and she will obtain a better number to call him at ifhis cell phone is not getting good temporary receptionist in the building. She will return call to us on . Yohannes from [facility], // ?? * Telephone Encounter - Cheli Guzman - 08/07/2019 8:06 AM EDT Cheli Guzman sent to Louis Vergara MD ?? New paitent consult can't be transported can you do a telephone office visit with him? ??We could get XR there. ??They called and cancelled him for tomorrow. ??He was on with [facility]. I have sent them the XR orders to be obtained at [facility]. They will send us the images and reports. Yohannes from [facility], // In basket message sent to Dr. Vergara to advise documented in this encounter Plan of Treatment Not on file documented as of this encounter Visit Diagnoses Not on filedocumented in this encounter Care Teams Chemical Equipment Repairer Relationship Specialty Start Date End Date Jarad Keller DNP PCP - General Family Medicine 06/05/18 02/09/21 documented as of this encounter
--- OUTSIDE RECORDS SUMMARY | 2023-12-28 16:38 | XMS_ITS | Encounter Summary ---
Author Organization [facility] [place] [address] Care Team Providers Care Facilities Clerk Name Role Phone Jarad Keller DNP Primary Care Provider [phone] Reason for Visit * Reason Onset Date Comments Medication Refill 09/17/2019 Encounter Details Date Type Department Care Team (Late st Contact Info) Description 09/17/2019 [place] [address] Ceasar Roy MD [facility] [place] [place] [address] Social History Tobacco Use Types Packs/Day Years [...] on filedocumented in this encounter Care Teams Facilities Clerk Relationship Specialty Start Date End Date Jarad Keller DNP PCP - General Family Medicine 06/05/18 02/09/21 documented as of this encounter
--- OUTSIDE RECORDS SUMMARY | 2023-12-28 16:38 | XMS_ITS | Encounter Summary ---
[place] [address] Care Team Providers Care Consumer Loan Processor Name Role Phone Jarad Keller DNP Primary Care Provider [phone] Reason for Visit * Reason Comments Procedure Encounter Details Date Type Department Care Team (Latest Contact Info) Description 10/12/2019 5:30 PM EDT Procedure [place] [address] Harmeet Arvizu MD [facility] [place] [address] Proliferative diabetic retinopathy of left eye with [...] this encounter Patient Instructions * Patient Instructions* Hosea Balderas, COT - 10/12/2019 5:30 PM EDT Today you had your left [...] about driving: We always recommend having a cdl flatbed truck driver on the day you get an [...] Normal and Not Expected side effects: Call [phone] (Eye Clinic) DAY or NIGHT, HOLIDAY or [...] AGENT - OS - LEFT EYE Routine 10/12/2019 4:44 PM EDT 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 documented in this encounter Results * Intravitreal Injection Pharmacologic Agent - OS - Left Eye (10/12/2019 4:44 PM EDT) Anatomical Region Laterality Modality Other Narrative 10/12/2019 4:44 PM EDT Pre Operative Diagnosis: Diabetic Macular Edema - Diabetic Retinopathy Post Operative Diagnosis: Diabetic Macular Edema - Diabetic Retinopathy Procedure: Intravitreal Injection of Eylea 2.0 mg left eye Assist: Supervisor Printing Shop Anesthesia: Topical Proparacaine and topical 4% Lidocaine Complications: None Procedure: The patient was taken to the minor treatment suite where the patient was reidentified using name and birthdate as critical identifiers. The correct eye as the operative site was reidentified by a preplaced site maria r, and the consent form was actively reviewed by the distribution center assistant and the surgeon. The left eye was prepped including instillation of Betadine 5% into the left cul de sac for 5 minutes, facial prep with ophthalmic Betadine and placement of a lid speculum. The Surgeon performed hand washing preoperatively, used gloves, and wore a face mask or used no talking technique during the procedudre, as did the surgical asst. After topical anesthesia of the injection site [...] call the Eye Clinic or Eye Doctor physician relations representative, should they develop pain the treated eye, increasing redness or a discharge from the eye. 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 documented in this encounter Care Teams Consumer Loan Processor Relationship Specialty Start Date End Date Jarad Keller DNP PCP - General Family Medicine 06/05/18 02/09/21 documented as of this encounter
--- OUTSIDE RECORDS SUMMARY | 2023-12-28 16:38 | XMS_ITS | Encounter Summary ---
[place] [address] Care Team Providers Care Cloth Tester Quality Name Role Phone Jarad Keller DNP Primary Care Provider [phone] Encounter Details Date Type Department Care Team (Late st Contact Info) Description 08/06/2019 Ancillary Procedure [place] [address] Jarad Keller DNP [address] [place] [address] Social History Tobacco Use Types [...] FILM LIBRARY STORAGE ONLY DX CHEST Routine 08/06/2019 12:00 AM EDT documented in this encounter Results * Film Library- Storage Only DX Chest (08/06/2019 12:00 AM EDT) Narrative ALEXANDER SIMMONS - 08/17/2019 8:00 AM EDT This exam is auto-finalizing. It's purpose is for storage only. Jarad Keller DNP IMG FILM LIBRARY OR DERABLES Performing Organization Address City/State/[facility] Co de Phone Number [place], [place] documented in this encounter Visit Diagnoses Not on filedocumented in this encounter Care Teams Cloth Tester Quality Relationship Specialty Start Date End Date Jarad Keller DNP PCP - General Family Medicine 06/05/18 02/09/21 documented as of this encounter
--- OUTSIDE RECORDS SUMMARY | 2023-12-28 16:38 | XMS_ITS | Encounter Summary ---
[place] [address] Care Team Providers Care Onion Topper Name Role Phone Jarad Keller DNP Primary Care Provider [phone] Encounter Details Date Type Department Care Team (Late st Contact Info) Description 08/16/2019 Telephone [place] [phone] Perla Tovar Social History Tobacco Use Types Packs/Day Years [...] encounter Miscellaneous Notes * Telephone Encounter - Perla Tovar - 08/16/2019 11:26 AM EDT Per TACS SIMONE [facility] contacted Yohannes at [facility] in response to phone note by Rosa from Orthopedics dated 08/16/2019. It has been offered patient go to [facility] on Tuesday August 20, 2019 to complete a CXR and SIMONE Press[place] would then call with results and plan advisement. Yohannes has agreed to this proposal and the appointments for tomorrow 08/17/2019 have been canceled. Yohannes @ [facility] TEL: [phone] FAX [phone] documented in this encounter Plan of Treatment Not on file documented as of this encounter Visit Diagnoses Not on filedocumented in this encounter Care Teams Onion Topper Relationship Specialty Start Date End Date Jarad Keller DNP PCP - General Family Medicine 06/05/18 02/09/21 documented as of this encounter
--- OUTSIDE RECORDS SUMMARY | 2023-12-28 16:38 | XMS_ITS | Encounter Summary ---
Author Organization [facility] [place] [place] [address] Care Team Providers Care Proof Technician Helper Name Role Phone Jarad Keller DNP Primary Care Provider [phone] Reason for Visit * Reason Onset Date Comments Medication Refill 10/01/2019 Encounter Details Date Type Department Care Team (Late st Contact Info) Description 10/01/2019 Refill [place] [address] Ceasar Roy MD [facility] [place] [address] Social History Tobacco Use Types Packs/Day Years [...] on filedocumented in this encounter Care Teams Proof Technician Helper Relationship Specialty Start Date End Date Jarad Keller DNP PCP - General Family Medicine 06/05/18 02/09/21 documented as of this encounter
--- OUTSIDE RECORDS SUMMARY | 2023-12-28 16:38 | XMS_ITS | Encounter Summary ---
[place] [address] Care Team Providers Care Rolled Glass Crosscutter Name Role Phone Jarad Keller DNP Primary Care Provider [phone] Encounter Details Date Type Department Care Team (Late st Contact Info) Description 08/16/2019 12:05 AM EDT Ancillary Procedure [place] [address] Jarad Keller DNP [address] [place] [address] Social History Tobacco Use Types [...] FILM LIBRARY STORAGE ONLY DX CHEST Routine 08/16/2019 12:05 AM EDT documented in this encounter Results * Film Library- Storage Only DX Chest (08/16/2019 12:05 AM EDT) Narrative TROY - 08/17/2019 8:02 AM EDT This exam is auto-finalizing. It's purpose is for storage only. Jarad Keller DNP IMG FILM LIBRARY OR DERABLES Performing Organization Address City/State/[facility] Co de Phone Number [place], [place] documented in this encounter Visit Diagnoses Not on filedocumented in this encounter Care Teams Rolled Glass Crosscutter Relationship Specialty Start Date End Date Jarad Keller DNP PCP - General Family Medicine 06/05/18 02/09/21 documented as of this encounter
--- OUTSIDE RECORDS SUMMARY | 2023-12-28 16:38 | XMS_ITS | Encounter Summary ---
Author Organization [facility] [place] [address] Care Team Providers Care Microsoft Exchange Administrator Name Role Phone Jarad Keller DNP Primary Care Provider [phone] Reason for Visit * Reason Comments Procedure Encounter Details Date Type Department Care Team (Latest Contact Info) Description 11/09/2019 2:15 PM EDT Procedure visit [place] [address] Harmeet Arvizu MD [facility] [place] [address] Proliferative diabetic retinopathy of left eye with [...] Instructions * Patient Instructions* Nicolette Caldwell - 11/09/2019 2:15 PM EDT Today you had your left [...] about driving: We always recommend having a boat driver on the day you get an [...] Normal and Not Expected side effects: Call [phone] (Eye Clinic) DAY or NIGHT, HOLIDAY or [...] Progress Notes * Harmeet Arvizu MD - 11/09/2019 2:15 PM EDT ASSESSMENT: 1. 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 Blindness of right eye, unspecified left eye visual impairment category 4 weeks Eylea OS #2/3 with ndOCT MSO only NdOCT: slightly improved OS PLAN: Follow up as scheduled: 4 weeks Eylea OS #3/3 MSO only 4 weeks for Re-eval FV+MSO with DFE/OCT/possible injection Harmeet Arvizu MD documented in this encounter Plan of Treatment Not on file documented as of this encounter Procedures Procedure Name Priority Date/Time Associated Diagnosis Comments INTRAVITREAL INJECTION PHARMACOLOGIC AGENT - OS - LEFT EYE Routine 11/09/2019 3:34 PM EDT 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 Blindness of right eye, unspecified left eye visual impairment category OCT RETINA - OU - BOTH EYES Routine 11/09/2019 3:34 PM EDT documented in this encounter Results * Intravitreal Injection Pharmacologic Agent - OS - Left Eye (11/09/2019 3:34 PM EDT) Anatomical Region Laterality Modality Other Narrative 11/09/2019 3:34 PM EDT Pre Operative Diagnosis: Diabetic Macular Edema - Diabetic Retinopathy Post Operative Diagnosis: Diabetic Macular Edema - Diabetic Retinopathy Procedure: Intravitreal Injection of Eylea 2.0 mg left eye Assist: Professional System Administrator Anesthesia: Topical Proparacaine and topical 4% Lidocaine Complications: None Procedure: The patient was taken to the minor treatment suite where the patient was reidentified using name and birthdate as critical identifiers. The correct eye as the operative site was reidentified by a preplaced site maria r, and the consent form was actively reviewed by the social and human services assistant and the surgeon. The left eye was prepped including instillation of Betadine 5% into the left cul de sac for 5 minutes, facial prep with ophthalmic Betadine and placement of a lid speculum. The Surgeon performed hand washing preoperatively, used gloves, and wore a face mask or used no talking technique during the procedudre, as did the cardiovascular surgical tech. After topical anesthesia of the injection site [...] call the Eye Clinic or Eye Doctor division operations manager, should they develop pain the treated eye, increasing redness or a discharge from the eye. Condition on Discharge: Stable Harmeet Arvizu MD OPHTHALMOLOGY SERVIC ES ORDERABLES * OCT Retina - OU - Both Eyes (11/09/2019 3:34 PM EDT) Anatomical Region Laterality Modality Other Narrative 11/09/2019 3:34 PM EDT Right Eye Quality was poor. [...] 2 mg, Intravitreal, ONCE, 1 dose, On Tue11/09/19 at 1600, Routine Given 11/09/2019 4:00 PM EDT 2 mg Left Eye documented in this encounter Care Teams Microsoft Exchange Administrator Relationship Specialty Start Date End Date Jarad Keller DNP PCP - General Family Medicine 06/05/18 02/09/21 documented as of this encounter
--- OUTSIDE RECORDS SUMMARY | 2023-12-28 16:38 | XMS_ITS | Encounter Summary ---
[place] [address] Care Team Providers Care Lock And Dam Operator Name Role Phone Jarad Keller DNP Primary Care Provider [phone] Encounter Details Date Type Department Care Team (Late st Contact Info) Description 08/23/2019 [place] [id number] Mariajose Mitchell Social History Tobacco Use Types Packs/Day Years [...] encounter Miscellaneous Notes * Telephone Encounter - Mariajose Mitchell - 08/24/2019 2:31 PM EDT Lavern, Patient was scheduled to see you on 08/[address], appointment canceled as patient was inpatient at a local hospital. CT done at [place] on 08/12. Please review CT in edh, does the patient need further f/u or a TOV scheduled with you? Thank you, Mariajose * Telephone Encounter - Mariajose Mitchell - 08/23/2019 2:33 PM EDT Pt scheduled for f/u 08/16 canceled due to being inpatient at local hospital. Called and pt had CT done at [place]. for CT Head from 08/12 to be pushed for review by BCB or DPS. Follow-up will be scheduled in the Neurosurgical Clinic in 2 weeks. Follow-up imaging ordered: CT Head documented in this encounter Plan of Treatment Not on file documented as of this encounter Visit Diagnoses Not on filedocumented in this encounter Care Teams Lock And Dam Operator Relationship Specialty Start Date End Date Jarad Keller DNP PCP - General Family Medicine 06/05/18 02/09/21 documented as of this encounter
--- OUTSIDE RECORDS SUMMARY | 2023-12-28 16:38 | XMS_ITS | Encounter Summary ---
[place] [address] Care Team Providers Care Acoustic Intelligence Specialist Name Role Phone Jarad Keller DNP Primary Care Provider [phone] Encounter Details Date Type Department Care Team (Late st Contact Info) Description 08/13/2019 Ancillary Procedure [place] [address] Lavern Velez APRN [facility] [place] [address] Social History Tobacco Use Types Packs/Day Years [...] Diagnosis Comments FILM LIBRARY STORAGE ONLY CT HEAD Routine 08/13/2019 12:00 AM EDT documented in this encounter Results * Film Library- Storage Only CT Head (08/13/2019 12:00 AM EDT) Narrative TROY - 08/23/2019 3:26 PM EDT This exam is auto-finalizing. It's purpose is for storage only. Lavern Velez APRN IMG FILM LIBRARY ORDERABLES Performing Organization Address City/State/[facility] Co de Phone Number [place], [place] documented in this encounter Visit Diagnoses Not on filedocumented in this encounter Care Teams Acoustic Intelligence Specialist Relationship Specialty Start Date End Date Jarad Keller DNP PCP - General Family Medicine 06/05/18 02/09/21 documented as of this encounter
--- OUTSIDE RECORDS SUMMARY | 2023-12-28 16:38 | XMS_ITS | Encounter Summary ---
[place] [address] Care Team Providers Care Casting Tester Name Role Phone Jarad Keller DNP Primary Care Provider [phone] Encounter Details Date Type Department Care Team ([facility] Contact Info) Description 09/14/2019 Telephone [place] [phone] Cherelle Sims LPN Social History Tobacco Use Types Packs/Day [...] Telephone Encounter - Ceasar Roy MD - 09/14/2019 1:37 PM EDT Thanks Cherelle Please let him know he will have to contact his insurance company to find out which DME to get the Vgo from Until he can obtain Vgo, he can use an equivalent dosing of lantus( 20 units daily) and 6 units humalog TID with meals. Please let him know, thanks * Telephone Encounter - Cherelle Sims LPN - 09/14/2019 1:08 PM EDT Received message from patient stating that [facility] in [place], [place] does not have his prescriptions for VGo insulin pump, or his insulin. He would like this done today! Last visit was via , but noted scripts had gone to [facility] in [place], [place]. I called [facility], and they state theydo not stock the VGo insulin pump; that would have to come from a Durable Medical Equipment supplier (DME). Patient may require long acting insulin until pump can be obtained, all scripts to go to [facility] in [place], [place]. *At this time, patient is not aware of DME need for pump. Note forwarded to Dr. Roy documented in this encounter Plan of Treatment Not on file documented as of this encounter Visit Diagnoses Not on filedocumented in this encounter Care Teams Casting Tester Relationship Specialty Start Date End Date Jarad Keller DNP PCP - General Family Medicine 06/05/18 02/09/21 documented as of this encounter
--- OUTSIDE RECORDS SUMMARY | 2023-12-28 16:38 | XMS_ITS | Encounter Summary ---
[place] [address] Care Team Providers Care Pvc Monitor Name Role Phone Jarad Keller DNP Primary Care Provider [phone] Reason for Visit * Reason Onset Date Comments Follow-up 10/15/2019 Encounter Details Date Type Department Care Team (Late st Contact Info) Description 10/15/2019 Telephone [place] [address] Harmeet Arvizu MD [facility] [place] [address] Follow-up Social History Tobacco Use Types Packs/Day [...] encounter Miscellaneous Notes * Telephone Encounter - Wilda Moseley - 10/23/2019 3:15 PM EDT Patient Scheduled * Telephone Encounter - Wilda Moseley - 10/15/2019 12:30 PM EDT I have called and left a message for patient to call and schedule an appointment. 4 weeks Eylea OS #2/3 with ndOCT MSO only 4 weeks Eylea OS #3/3 MSO only 4 weeks for Re-eval FV+MSO with DFE/OCT/possible injection documented in this encounter Plan of Treatment Not on file documented as of this encounter Visit Diagnoses Not on filedocumented in this encounter Care Teams Pvc Monitor Relationship Specialty Start Date End Date Jarad Keller DNP PCP - General Family Medicine 06/05/18 02/09/21 documented as of this encounter
--- OUTSIDE RECORDS SUMMARY | 2023-12-28 16:38 | XMS_ITS | Encounter Summary ---
[place] [address] Care Team Providers Care Director Enterprise Data Architecture Name Role Phone Jarad Keller DNP Primary Care Provider [phone] Encounter Details Date Type Department Care Team (Late st Contact Info) Description 08/16/2019 Ancillary Procedure [place] [address] Jarad Keller DNP [address] [place] [address] Social History Tobacco Use Types [...] Diagnosis Comments FILM LIBRARY STORAGE ONLY DX SHOULDER Routine 08/16/2019 12:00 AM EDT documented in this encounter Results * Film Library- Storage Only DX Shoulder (08/16/2019 12:00 AM EDT) Narrative ALEXANDER SIMMONS - 08/17/2019 7:59 AM EDT This exam is auto-finalizing. It's purpose is for storage only. Jarad Keller DNP IMG FILM LIBRARY OR DERABLES Performing Organization Address City/State/[facility] Co de Phone Number [place], [place] documented in this encounter Visit Diagnoses Not on filedocumented in this encounter Care Teams Director Enterprise Data Architecture Relationship Specialty Start Date End Date Jarad Keller DNP PCP - General Family Medicine 06/05/18 02/09/21 documented as of this encounter
--- OUTSIDE RECORDS SUMMARY | 2023-12-28 16:38 | XMS_ITS | Encounter Summary ---
[place] [address] Care Team Providers Care Qa Software Test Engineer Name Role Phone Jarad Keller DNP Primary Care Provider [phone] Encounter Details Date Type Department Care Team (Late st Contact Info) Description 08/07/2019 Ancillary Procedure [place] [address] Jarad Keller DNP [address] [place] [address] Social History Tobacco Use Types [...] FILM LIBRARY STORAGE ONLY DX CHEST Routine 08/07/2019 12:00 AM EDT documented in this encounter Results * Film Library- Storage Only DX Chest (08/07/2019 12:00 AM EDT) Narrative ALEXANDER SIMMONS - 08/17/2019 8:00 AM EDT This exam is auto-finalizing. It's purpose is for storage only. Jarad Keller DNP IMG FILM LIBRARY OR DERABLES Performing Organization Address City/State/[facility] Co de Phone Number [place], [place] documented in this encounter Visit Diagnoses Not on filedocumented in this encounter Care Teams Qa Software Test Engineer Relationship Specialty Start Date End Date Jarad Keller DNP PCP - General Family Medicine 06/05/18 02/09/21 documented as of this encounter
--- OUTSIDE RECORDS SUMMARY | 2023-12-28 16:38 | XMS_ITS | Encounter Summary ---
Author Organization [facility] [place] [address] Care Team Providers Care Stylist Apprentice Name Role Phone Jarad Keller DANIKA Primary Care Provider [phone] Encounter Details Date Type Department Care Team (Latest Contact Info) Description 08/29/2019 2:30 PM EDT TH Visit (TeleHealth) [place] [address] Ceasar Roy MD [facility] [place] [address] Type 2 diabetes mellitus with hyperglycemia, with long-term current use of insulin Social History Tobacco Use Types Packs/Day Years [...] as of this encounter Progress Notes * Ceasar Roy MD - 08/29/2019 2:30 PM EDT TELEPHONE VISIT Patient verbally consents to this telephone visit and understands that this visit may be billed, similar to a clinic office visit Mr. Maurice Rudolph is an 59 y.o. male who presents for ongoing care of Diabetes type II Interval history: Notable medical comorbidities:proliferative DM retinopathy, nephropathy/ESRD, lower extremity neuropathy. 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 He has HTN butblood pressure usually runs low at HD sessions, CAD Last saw me in clinic around one year ago. Since that time, he was admitted to [facility] in July 2019 for fall leading to significant head/spine injuries. He was discharged a few weeks ago and has been at a rehab facility in [facility] where he was at the time of the call. He had been on the Vgo-40 pump up until the admission and most recent A1c 8.6% (~3% decrease from when he saw me). He was discharged on lantus daily and humalog ICF qac/qhs Current MD meds: lantus 17 units daily humalog ICF qac/qhs Glucose log: Staff are checking sugars TID Range 110-243 No lows He tells me that he is feeling stronger and is ready to transition home in about a week. His appetite is improving, although he has lost significant weight since his hospital admission. He continues to go to HD three times weekly. Looking forward to restarting Vgo system because he feels that this works best for him Sees the eye doctor once yearly, and has no new eye problems Current Outpatient Medications: ??? cephALEXin (KEFLEX) 500 mg Tablet, Take by mouth. do, Disp: , Rfl: ??? acetaminophen (Tylenol) 500 mg Tablet, Take 2 tablets by mouth every 6 hours., Disp: 30 tablet,Rfl: 1 ??? aspirin 325 mg Tablet, Take 1 tablet by mouth daily., Disp: 90 tablet, Rfl: 3 ??? sub-q insulin device, 20 unit (V-GO 20) Device, 1 each by [facility].(Non-Drug; Combo Route) route daily. Insulin pump to infuse insulin continuously. Change daily, Disp: 30 Device, Rfl: 11 ??? NovoLOG U-100 Insulin aspart Solution, Use with Vgo 20 insulin pump. 20 units daily plus additional clicks as directed, up to 56 units daily, Disp: 20 mL, Rfl: 11 ??? amLODIPine (Norvasc) 5 mg Tablet, Take 1 tablet by mouth daily., Disp: 90 tablet, Rfl: 3 ??? epoetin babs-epbx (Retacrit) 10,000 unit/mL Solution, Inject 1 mL subcutaneously once as neededin Dialysis., Disp: 1 mL, Rfl: ??? heparin, Porcine, 5,000 unit/mL Solution, Inject 1 mL subcutaneously every 8 hours., Disp: , Rfl: ??? lidocaine (LIDODERM) 5 % Adhesive Patch, Medicated, Apply 1 patch onto the skin daily. (leave on for 12 hours and remove for 12 hours), Disp: 30 patch, Rfl: 0 ??? melatonin 3 mg Tablet, Take 2 tablets by mouth nightly., Disp: , Rfl: ??? sevelamer carbonate (Renvela) 800 mg Tablet, Take 1 tablet by mouth 3 times daily (with meals)., Disp: , Rfl: ??? insulin glargine Solution, Inject 30 Units subcutaneously daily., Disp: , Rfl: 12 ??? insulin lispro (HumaLOG) Solution, Inject 0-15 Units subcutaneously 3 times daily (with meals)., Disp: , Rfl: 12 ??? camphor-menthol (SARNA) Lotion, Apply 1 each [...] mg by mouth daily., Disp: , Rfl: Past Medical History: Diagnosis Date ??? Acute [...] dialysis, with long-term current use of insulin Patient Active Problem List Diagnosis ??? Closed fracture of right proximal humerus ??? Closed nondisplaced fracture of shaft of right clavicle ??? Right scapula fracture ??? Fall ??? Cellulitis ??? Pre-transplant evaluation for kidney transplant ??? Class 2 severe obesity due to excess calories with serious comorbidity and body mass index (BMI) of 39.0 to 39.9 in adult ??? Pseudophakia of both eyes ??? PCO (posterior capsular opacification) ??? Eye pain ??? Ocular hypertension of right eye. Postop ??? Ischemic diabetic maculopathy ??? Type 2 diabetes mellitus with stage 5 chronic kidney disease not on chronic dialysis, with long-term current use of insulin ??? Hyperopia ??? Acute angle-closure glaucoma of right eye ??? HTN (hypertension) ??? GERD (gastroesophageal reflux disease) ??? Proliferative diabetic retinopathy, both eyes Overview Note: Radiology Studies: Laboratory Data: Assessment / Plan: 1) Diabetes Mellitus type 2, improving glycemic control - once he transitions home then restart Vgo but at lower dose of Vgo 20 (20 units of basal insulin)and three clicks (6 units) novolog with each meal. Device carries max 56 units daily of novolog. Start Vgo ~21-22 hrs after last lantus shot - He will notify me if he has problematic hypoglycemia, but I would like to check in for another telehealth visit in about 6 weeks to ensure the transition to Vgo goes smoothly. At the next visit, we can determine the appropriate interval to recheck routine labs including A1c,which could be drawn at HD Please do not hesitate to contact me with questions TIME STATEMENT: I spent 22 minutes on this call plus another 12 minutes on documentation and chart review for a total of 34 minutes on the phone Return to clinic 6 weeks for repeat telehealth visit Ceasar Roy MD Lead Software Qa Engineerintensive care unit registered nurse Endocrinology Section [facility] documented in this encounter Plan of Treatment Not on file documented as of this encounter Visit Diagnoses Diagnosis Type 2 diabetes mellitus with hyperglycemia, with long-term current use of insulin documented in this encounter Care Teams Stylist Apprentice Relationship Specialty Start Date End Date Jarad Keller DNP PCP - General Family Medicine 06/05/18 02/09/21 documented as of this encounter
--- OUTSIDE RECORDS SUMMARY | 2023-12-28 16:38 | XMS_ITS | Encounter Summary ---
[place] [address] Care Team Providers Care Software Systems Architect Name Role Phone Jarad Keller DANIKA Primary Care Provider [phone] Encounter Details Date Type Department Care Team (Late st Contact Info) Description 08/16/2019 Orders [place] [address] Jacinta Pressley, [facility] [place] [address] Closed fracture of multiple ribs of right side with routine healing, subsequent encounter Social History Tobacco Use Types Packs/Day [...] encounter Visit Diagnoses Diagnosis Closed fracture of multiple ribs of right side with routine healing, subsequent encounter documented in this encounter Care Teams Software Systems Architect Relationship Specialty Start Date End Date Jarad Keller DNP PCP - General Family Medicine 06/05/18 02/09/21 documented as of this encounter
--- OUTSIDE RECORDS SUMMARY | 2023-12-28 16:38 | XMS_ITS | Encounter Summary ---
[place] [address] Care Team Providers Care [employer] Principal Name Role Phone Jarad Keller DNP Primary Care Provider [phone] Encounter Details Date Type Department Care Team (Late st Contact Info) Description 08/07/2019 12:10 AM EDT Ancillary Procedure [place] [address] Jarad Keller DNP [address] [place] [address] Social History Tobacco Use Types [...] LIBRARY STORAGE ONLY DX CHEST Routine 08/07/2019 12:10 AM EDT documented in this encounter Results * Film Library- Storage Only DX Chest (08/07/2019 12:10 AM EDT) Narrative TROY - 08/17/2019 8:02 AM EDT This exam is auto-finalizing. It's purpose is for storage only. Jarad Keller DNP IMG FILM LIBRARY OR DERABLES Performing Organization Address City/State/[facility] Co de Phone Number [place], [place] documented in this encounter Visit Diagnoses Not on filedocumented in this encounter Care Teams [employer] Principal Relationship Specialty Start Date End Date Jarad Keller DNP PCP - General Family Medicine 06/05/18 02/09/21 documented as of this encounter
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
--- OUTSIDE RECORDS SUMMARY | 2023-12-28 16:39 | XMS_ITS | Encounter Summary ---
[place] [address] Care Team Providers Care Emergency Planner Name Role Phone Jarad Keller DNP Primary Care Provider [phone] Encounter Details Date Type Department Care Team (Late st Contact Info) Description 08/07/2018 Telephone [place] [id number] Tamar Smith, RN Social History Tobacco Use Types Packs/Day [...] encounter Miscellaneous Notes * Telephone Encounter - Tamar Bailey, RN - 08/07/2018 4:17 PM EDT Attempted to call Maurice. Home phone number stated call could not be completed. Mobile phone number called and VM left for Maurice to return my call. Spouse's contact (Emergency contact) is the same home phone number. documented in this encounter Plan of Treatment Not on file documented as of this encounter Visit Diagnoses Not on filedocumented in this encounter Care Teams Emergency Planner Relationship Specialty Start Date End Date Jarad Keller DNP PCP - General Family Medicine 06/05/18 02/09/21 documented as of this encounter
--- OUTSIDE RECORDS SUMMARY | 2023-12-28 16:39 | XMS_ITS | Encounter Summary ---
[place] [address] Care Team Providers Care Die Presser Name Role Phone Jarad Keller DNP Primary Care Provider [phone] Encounter Details Date Type Department Care Team (Late st Contact Info) Description 07/29/2019 10:20 PM EDT Ancillary Procedure [place] [address] Social History Tobacco Use Types Packs/Day Years [...] Diagnosis Comments FILM LIBRARY STORAGE ONLY DX HIP STAT 07/29/2019 10:12 PM EDT documented in this encounter Results * Film Library- Storage Only DX Hip (07/29/2019 10:12 PM EDT) Narrative RAD - 07/29/2019 10:12 PM EDT This exam is auto-finalizing. It's purpose is for storage only. Aaron Dover MD IMG FILM LIBRARY ORD ERABLES [place], [place] documented in this encounter Visit Diagnoses Not on filedocumented in this encounter Care Teams Die Presser Relationship Specialty Start Date End Date Jarad Keller DNP PCP - General Family Medicine 06/05/18 02/09/21 documented as of this encounter
--- OUTSIDE RECORDS SUMMARY | 2023-12-28 16:39 | XMS_ITS | Encounter Summary ---
[place] [address] Care Team Providers Care Coal Handler Name Role Phone Jarad Keller DNP Primary Care Provider [phone] Encounter Details Date Type Department Care Team (Late st Contact Info) Description 07/29/2019 9:05 PM EDT Ancillary Procedure [place] [address] Aaron Dover MD [facility] [place] [address] Social History Tobacco Use Types Packs/Day Years [...] Comments FILM LIBRARY STORAGE ONLY CT CHEST ABDOMEN PELVIS Routine 07/29/2019 9:04 PM EDT documented in this encounter Results * Film Library- Storage Only CT Chest Abdomen Pelvis (07/29/2019 9:04 PM EDT) Narrative TROY - 07/29/2019 9:04 PM EDT This exam is auto-finalizing. It's purpose is for storage only. Aaron Dover MD IMG FILM LIBRARY ORD ERABLES Performing Organization Address City/State/[facility] Co de Phone Number [place], [place] documented in this encounter Visit Diagnoses Not on filedocumented in this encounter Care Teams Coal Handler Relationship Specialty Start Date End Date Jarad Keller DNP PCP - General Family Medicine 06/05/18 02/09/21 documented as of this encounter
--- OUTSIDE RECORDS SUMMARY | 2023-12-28 16:39 | XMS_ITS | Encounter Summary ---
[place] [address] Care Team Providers Care Standard Machine Stitcher Name Role Phone Jarad Keller DNP Primary Care Provider [phone] Encounter Details Date Type Department Care Team (Late st Contact Info) Description 06/21/2018 Telephone [place] [id number] Tamar Smith RN Social History Tobacco Use Types Packs/Day [...] Miscellaneous Notes * Telephone Encounter - Tamar Bailey RN - 06/21/2018 4:01 PM EST left for Maurice. Need to discuss what was done/ not done at [facility]. Requested some records from them as not everything is viewable on Care Everywhere. Testing letter was made and not sent out yet due to some records being found in Care Everywhere. Will wait to hear from Maurice, update his testing letter, and send corrected copy out. documented in this encounter Plan of Treatment Not on file documented as of this encounter Visit Diagnoses Not on filedocumented in this encounter Care Teams Standard Machine Stitcher Relationship Specialty Start Date End Date Jarad Keller DNP PCP - General Family Medicine 06/05/18 02/09/21 documented as of this encounter
--- OUTSIDE RECORDS SUMMARY | 2023-12-28 16:39 | XMS_ITS | Encounter Summary ---
[place] [address] Care Team Providers Care Sql Server Architect Name Role Phone Jarad Keller DNP Primary Care Provider [phone] Encounter Details Date Type Department Care Team (Late st Contact Info) Description 07/29/2019 10:15 PM EDT Ancillary Procedure [place] [address] Social History Tobacco Use Types Packs/Day Years [...] Comments FILM LIBRARY STORAGE ONLY DX SHOULDER STAT 07/29/2019 10:11 PM EDT documented in this encounter Results * Film Library- Storage Only DX Shoulder (07/29/2019 10:11 PM EDT) Narrative RAD - 07/29/2019 10:11 PM EDT This exam is auto-finalizing. It's purpose is for storage only. Aaron Dover MD IMG FILM LIBRARY ORD ERABLES [place], [place] documented in this encounter Visit Diagnoses Not on filedocumented in this encounter Care Teams Sql Server Architect Relationship Specialty Start Date End Date Jarad Keller DNP PCP - General Family Medicine 06/05/18 02/09/21 documented as of this encounter
--- OUTSIDE RECORDS SUMMARY | 2023-12-28 16:39 | XMS_ITS | Encounter Summary ---
[place] [address] Care Team Providers Care Rotary Drier Feeder Name Role Phone Jarad Keller DNP Primary Care Provider [phone] Encounter Details Date Type Department Care Team (Late st Contact Info) Description 06/08/2018 2:00 PM EST Office Visit [place] [address] Pre-transplant evaluation for kidney transplant Social History [...] as of this encounter Progress Notes * Tacos Gill, [facility] - 06/08/2018 2:00 PM EST Encounter Date: June 08, 2018 Mr. Maurice Rudolph is a 58 y.o. male seen for a medication review as part of his kidney transplant work-up. S: Met with patient to review current medications and discuss post-transplant medications. Completed the Morisky 8 Item Adherence Questionaire to better better quantify the patient's probability to maintain compliance with a post kidney transplant drug regimen. Mr. Maurice Rudolph scored 6 of 8 predicting moderate adherence. The Morisky scale has been validated in the post transplant population. Yes = 0 points, No = 1 point Score 1 - Do you sometimes forget to take your medicine? No = 1 Mr. Rudolph states he never forgets to take his medications. He doesn't use pillboxes or reminders, but keeps all of his medications together in one place. He states that his vision is poor, but hehas adapted to tell the difference between each medication by smell and feel. He also tells me thathe is looking into getting blister packs for his medications, which is what his uses. 2 - People sometimes miss taking their medicines for reasons other than forgetting. Thinking over the past 2 weeks, were there any days when you did not take your medicine? Yes = 0 Mr. Rudolph states that he doesn't have about half of his medications currently while he is waiting for Part D coverage. See below for more information. 3 - Have you ever cut back or stopped taking your medicine without telling your doctor because you felt worse when you took it? No = 1 4 - When you travel or leave home, do you sometimes forget to bring along your medicine? No = 1 5 - Did you take all your medicines yesterday? (reverse scoring) Not all medications due to extenuating circumstances = 0 6 - When you feel like your symptoms are under control, do you sometimes stop taking your medicine? No = 1 7 - Taking medicine every day is a real inconvenience for some people. Do you ever feel hassled about sticking to your treatment plan? No = 1 8 - How often do you have difficulty remembering to take all your medicine? __ A. Never/rarely A = 1 __ B. Once in a while B - E = 0 __ C. Sometimes __ D. Usually __ E. All the time Never = 1 Scores: <6 = low adherence, 6-7 = medium adherence, 8 = high adherence Jodie RUFFIN, Bert ZELAYA, Jane DM. Concurrent and predictive validity of a self- reported measure of medication adherence. Med Care. 1986;24:67-74. How often or do you run out of one or more of your prescription medications before getting a new refill? Mr. Rudolph states that normally he is on top of his prescription refills. However, when moving back to [place] from [place], he lost his insurance coverage. He has applied for Part D coverage, andis waiting for it to go through. He currently has pravastatin, bumetanide, and aspirin. He states that he has borrowed some insulin from his because they both use Novolog and Lantus He is currently out of losartan and sertraline and has not been taking them. How often or do you have difficulty affording your prescription medications? Under normal circumstances, Mr. Rudolph states he does not have any trouble affording his medications. However, the loss of insurance coverage made it so that he temporarily cannot afford all of his medications. Allergies: Patient has no known allergies. He tells me that he had a previous reaction to penicillin as a child. He was allergy tested and does not have any allergy to penicillins. Current Medications: Medication Sig Dispense ??? aspirin 325 mg Tablet Take 325 mg by mouth daily. ??? losartan (COZAAR) 50 [...] mg by mouth 3 times daily. ??? insulin glargine (LANTUS) 100 unit/mL vial injection Inject 40 Units subcutaneously nightly. ??? insulin aspart (NOVOLOG) 100 unit/mL vial injection Inject subcutaneously 3 times daily (with meals). Mr. Rudolph states he normally takes around 16 units per meal. He previously used V-Go, an insulin delivery system but has not been able to get it prescribed and covered since his move to [place] from [place]. He is seeing endocrinology at [facility] in July, and he is hoping to restart using V-Go. In the meantime, insulin glargine was started by his primary care provider for basal insulin coverage. ??? sertraline (ZOLOFT) 25 mg tablet Take 25 mg by mouth daily. ??? pravastatin (PRAVACHOL) 40 mg Tablet Take 40 mg by mouth daily. Assessment/plan: 1. There are no medication contraindications noted to proceed with transplant surgery. However, will need to have a strong support system in place because of his poor vision. He states he currently tells the difference between his medications by smell and feel, and I am concerned thatthere will be a strong learning curve post-transplant when several new medications are added at onetime. 2. Mr. Maurice Rudolph was ranked moderate adherence to his medication regimen based on the Morisky 8 Item Adherence scale. Mr. Rudolph would have been ranked high adherence, had it not been for the lack of insurance coverage, which made it so that he could not afford to fill several of his medications. He is hopeful that his insurance will be reinstated soon. 3. The need for long-term medication and potential adjustment of medications post-transplant were discussed. A handout reviewing potential transplant medication side effects, dosing and pertinent issues was supplied as a reference. 4. Will remain available for any medication questions TACOS GILL RP documented in this encounter Plan of Treatment Not on file documented as of this encounter Visit Diagnoses Diagnosis Pre-transplant evaluation for kidney transplant Other specified pre-operative examination documented in this encounter Care Teams Rotary Drier Feeder Relationship Specialty Start Date End Date Jarad Keller DNP PCP - General Family Medicine 06/05/18 02/09/21 documented as of this encounter
--- OUTSIDE RECORDS SUMMARY | 2023-12-28 16:39 | XMS_ITS | Encounter Summary ---
[place] [address] Care Team Providers Care Lastex Thread Winder Name Role Phone Jarad Keller DNP Primary Care Provider [phone] Encounter Details Date Type Department Care Team (Late st Contact Info) Description 06/08/2018 12:00 PM EST Office Visit [place] [address] Organ transplant candidate Social History Tobacco Use Types Packs/Day Years [...] encounter Progress Notes * Ana Hernández - 06/08/2018 12:00 PM EST Transplant Computer Sciences Professor Note: Met with patient during the Kidney Class appointment to review medical and pharmacy benefits for transplant services. He is covered by Medicare A, B, and D ([facility]). He does not have a secondary plan at this time, however he states he has applied for [place] Medicaid. He agrees to contact me once he hears from Medicaid. He states that he didn't think his part D plan was in effect at this time. I explained that I made a phone call to the plan today to verify coverage, however that is never a guarantee. I explained that his part D plan will need to be current in order to be activated on the transplant waiting list. He expressed understanding and agrees to contact me once he hears from Medicaid / Part D. We reviewed the post transplant medication list in detail, including estimated copays for each medication - A copy of this list was provided to the patient. He is facing approximately $ 245 - $300 per month in post transplant medication costs. He states the ability to easily afford this cost. He reports that he owns his home and has no bills. He receives approximately $1250 per month in SSDI. He states that his has a trust fund from an accident that covers all of the household bills. The trust will disperse the same amount of money each month until she turns 64 (she is now 54) and then there will be a small reduction, however it is a lifetime benefit. Financial Clearance: Cleared for living and donor kidney transplant. Coverage Review: Primary Insurance: Medicare AB Secondary Plan: None ( Medicaid applied for) Pharmacy Carrier: [facility] (level 1 LIS extra help copays $3.60 generic / $8.50 brand Drug Dose/Form # for 30 Days Copay 30 Day Supply PA Required? Mail Order Available Copay 90 Day Supply Prograf 1mg cap 180 caps $70.00 $ Cellcept 250 mg cap 180 caps $70.00 $ Myfortic 360 mg tab 120 tabs $ $ Bactrim SS tab 30 tabs $3.40 $ Mepron 750 mg/5ml 150 ml $ $ Diltiazem CD 120 mg tablet 30 tabs $3.40 $ K Phos Original 500 mg tab 120 tabs $75 $ Magnesium Gluconate 500 mg tab 120 tabs $10-$25 OVER THE COUNTER, MCCAIN AT LOCAL PHARMACY $ Pantoprazole 40 mg cap 30 tabs $3.40 $ Nystatin 100K units/ml 600 ml $3.40 $ Valcyte 450 mg tab 60 tabs $3.40 $ Valtrex 500 mg tab 60 tabs $3.40 $ $245 - $300 documented in this encounter Plan of Treatment Not on file documented as of this encounter Visit Diagnoses Diagnosis Organ transplant candidate Awaiting organ transplant status documented in this encounter Care Teams Lastex Thread Winder Relationship Specialty Start Date End Date Jarad Keller DNP PCP - General Family Medicine 06/05/18 02/09/21 documented as of this encounter
--- OUTSIDE RECORDS SUMMARY | 2023-12-28 16:39 | XMS_ITS | Encounter Summary ---
Author Organization [facility] [place] [place] [address] Care Team Providers Care Pipelines Supervisor Name Role Phone Jarad Keller DNP Primary Care Provider [phone] Encounter Details Date Type Department Care Team (Late st Contact Info) Description 07/30/2019 Orders [place] [address] Louis Vergara MD [facility] DR [place] [address] Closed fracture of right scapula, unspecified part of scapula, initial encounter; Closed nondisplaced fracture of shaft of right clavicle, initial encounter; Closed fracture of proximal end of right humerus, unspecified fracture morphology, initial encounter Social History Tobacco Use Types [...] documented as of this encounter Results * XR Clavicle Right (Generic) (07/30/2019 12:23 PM EDT) Anatomical Region Laterality Modality Shoulder, Chest Right Digital Radiogra phy Narrative 07/30/2019 12:40 PM EDT EXAMINATION: XR SHOULDER RIGHT (GENERIC), XR CLAVICLE RIGHT (GENERIC) CLINICAL HISTORY: ?? RIGHT 2 PART PROX HUM FX DOI 07/29/2019 (R CLAVICLE FX AND SCAPULAR BODY FX ALSO) ? CHECK HEALING, , ??entered by ordering service TECHNIQUE: 4 views, right shoulder 1 view of right clavicle COMPARISON: Radiographs, July 30, 2019 at 1:00 AM. FINDINGS: 1125 hours : Bones: 1. ??Right Humerus- 2. ??Comminuted displaced proximal humeral fracture redemonstrated. No intra-articular no intraarticular extension. 3. ??Right clavicle-nondisplaced oblique mid clavicular fracture. The AC joint alignment and coracoclavicular interval are preserved. 4. ??Right second rib-displaced lateral fracture seen on the clavicle examination. AC Joint: There osteophytes. Normal AC joint alignmentent Glenohumeral joint: Small osteophytes. Normal alignment. Soft tissue: periarticular calcifications: None Impression 1. ??Comminuted proximal humeral fracture 2. ??Normal AC joint alignment. 3. ??Oblique nondisplaced right mid clavicular fracture. Thank you for letting us participate in the care of this patient. For questions regarding this report, please contact the number below. ? Procedure Note Debra Jasmine MD - 07/30/2019 EXAMINATION: XR SHOULDER RIGHT (GENERIC), XR CLAVICLE RIGHT (GENERIC) CLINICAL HISTORY: RIGHT 2 PART PROX HUM FX DOI 07/29/2019 (R CLAVICLE FXAND SCAPULAR BODY FX ALSO) ? CHECK HEALING, , entered by ordering service TECHNIQUE: 4 views, right shoulder 1 view of right clavicle COMPARISON: Radiographs, July 30, 2019 at 1:00 AM. FINDINGS: 1125 hours : Bones: 1. Right Humerus- 2. Comminuted displaced proximal humeral fracture redemonstrated. No intra-articular no intraarticular extension. 3. Right clavicle-nondisplaced oblique mid clavicular fracture. The ACjoint alignment and coracoclavicular interval are preserved. 4. Right second rib-displaced lateral fracture seen on the clavicle examination. AC Joint: There osteophytes. Normal AC joint alignmentent Glenohumeral joint: Small osteophytes. Normal alignment. Soft tissue: periarticular calcifications: None Impression 1. Comminuted proximal humeral fracture 2. Normal AC joint alignment. 3. Oblique nondisplaced right mid clavicular fracture. Thank you for letting us participate in the care of this patient. Forquestions regarding this report, please contact the number below. Louis Vergara MD IMG DX ORDERABLES * XR Shoulder Right (Generic) (07/30/2019 12:23 PM EDT) Anatomical Region Laterality Modality Shoulder Right Digital Radiogra phy Narrative 07/30/2019 12:40 PM EDT EXAMINATION: XR SHOULDER RIGHT (GENERIC), XR CLAVICLE RIGHT (GENERIC) CLINICAL HISTORY: ?? RIGHT 2 PART PROX HUM FX DOI 07/29/2019 (R CLAVICLE FX AND SCAPULAR BODY FX ALSO) ? CHECK HEALING, , ??entered by ordering service TECHNIQUE: 4 views, right shoulder 1 view of right clavicle COMPARISON: Radiographs, July 30, 2019 at 1:00 AM. FINDINGS: 1125 hours : Bones: 1. ??Right Humerus- 2. ??Comminuted displaced proximal humeral fracture redemonstrated. No intra-articular no intraarticular extension. 3. ??Right clavicle-nondisplaced oblique mid clavicular fracture. The AC joint alignment and coracoclavicular interval are preserved. 4. ??Right second rib-displaced lateral fracture seen on the clavicle examination. AC Joint: There osteophytes. Normal AC joint alignmentent Glenohumeral joint: Small osteophytes. Normal alignment. Soft tissue: periarticular calcifications: None Impression 1. ??Comminuted proximal humeral fracture 2. ??Normal AC joint alignment. 3. ??Oblique nondisplaced right mid clavicular fracture. Thank you for letting us participate in the care of this patient. For questions regarding this report, please contact the number below. ? Procedure Note Debra Jasmine MD - 07/30/2019 EXAMINATION: XR SHOULDER RIGHT (GENERIC), XR CLAVICLE RIGHT (GENERIC) CLINICAL HISTORY: RIGHT 2 PART PROX HUM FX DOI 07/29/2019 (R CLAVICLE FXAND SCAPULAR BODY FX ALSO) ? CHECK HEALING, , entered by ordering service TECHNIQUE: 4 views, right shoulder 1 view of right clavicle COMPARISON: Radiographs, July 30, 2019 at 1:00 AM. FINDINGS: 1125 hours : Bones: 1. Right Humerus- 2. Comminuted displaced proximal humeral fracture redemonstrated. No intra-articular no intraarticular extension. 3. Right clavicle-nondisplaced oblique mid clavicular fracture. The ACjoint alignment and coracoclavicular interval are preserved. 4. Right second rib-displaced lateral fracture seen on the clavicle examination. AC Joint: There osteophytes. Normal AC joint alignmentent Glenohumeral joint: Small osteophytes. Normal alignment. Soft tissue: periarticular calcifications: None Impression 1. Comminuted proximal humeral fracture 2. Normal AC joint alignment. 3. Oblique nondisplaced right mid clavicular fracture. Thank you for letting us participate in the care of this patient. Forquestions regarding this report, please contact the number below. Louis Vergara MD IMG DX ORDERABLES documented in this encounter Visit Diagnoses Diagnosis Closed fracture of right scapula, unspecified part of scapula, initial encounter Closed nondisplaced fracture of shaft of right clavicle, initial encounter Closed fracture of proximal end of right humerus, unspecified fracture morphology, initial encounter documented in this encounter Care Teams Pipelines Supervisor Relationship Specialty Start Date End Date Jarad Keller DNP PCP - General Family Medicine 06/05/18 02/09/21 documented as of this encounter
--- OUTSIDE RECORDS SUMMARY | 2023-12-28 16:39 | XMS_ITS | Encounter Summary ---
Author Organization [facility] [place] [address] Care Team Providers Care Medical Detailist Name Role Phone Jarad Keller DNP Primary Care Provider [phone] Encounter Details Date Type Department Care Team (Late st Contact Info) Description 06/08/2018 1:30 PM EST Office Visit [place] [address] Merlene Ferro, [facility] [place] [address] Pre-transplant evaluation for kidney transplant Social History [...] as of this encounter Progress Notes * Merlene Ferro, [facility] - 06/08/2018 1:30 PM EST TRANSPLANT NUTRITION Initial Transplant Note This newswriter met with Maurice GurrolaKaty Ronni a 58 y.o. year old male on 06/08/2018 for nutrition assessmentas part of kidney transplant work-up. Patient attended the Kidney Transplant Information session and then met with each member of the transplant team. Past Medical History: Diagnosis Date ??? 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 Anxiety ??? Arthritis ??? Cataract. Dense with synechiae. Right eye. 06/21/2012 ??? Complication of anesthesia Had ?laryngospasm post extubation in OR 04/03/12, requrring brief reintubation. ??? Diabetes mellitus ??? Difficult intubation Two attempts (Mac3 and Bajwa 3 successful x 1 attempt. Suggest videolaryngoscope would be easier for future. ??? DM eyes ??? GERD (gastroesophageal reflux disease) no regular tx ??? Hyperlipidemia ??? Hypertension ??? Neuromuscular disorder * CABG X 3 in 2014 Diabetic History: DM2 Dialysis History: initiated hemodialysis about 2 years ago in [place] and transferred about [address] [facility] unit Food Record: B -> none on dialysis days; other days may have 2 eggs or pancakes or other; no coffee; L -> hot dog or PB s/w, diet Mtn Dew or water; D -> pasta dish or chicken, hamburger helper, veggies, rice or baked beans; He does not have any HS snacks; occasionally may have a banana or other fruit; may have a muffin from [employer] or PB on bread. He may go out a couple days per week for chicken, usually fried. [place] the cooking. He likes milk and yogurt. Social History Tobacco Use ??? Smoking status: Former Smoker ??? Tobacco comment: stopped 25 years ago Substance Use Topics ??? Alcohol use: No * Household: Lives with his disabled Current Outpatient Medications Medication Sig Dispense Refill ??? aspirin 325 mg Tablet Take 325 [...] Inject subcutaneously 3 times daily (with meals). ??? sertraline (ZOLOFT) 25 mg tablet Take 25 mg by mouth daily. ??? pravastatin (PRAVACHOL) 40 mg Tablet Take 40 mg by mouth daily. No current facility-administered medications for this visit. Anthropometrics Height: 63.5 (161.1cm) Weight: 222.8# (101.1kg) BMI: 38.9 IBW: ~145# (65.9kg) %IBW: 153% States that his DBW after dialysis is 100kg (220#); this is a BMI of 38.4 Recent weight change: stable per patient; 200# is encouraged for a BMI of 35; this would help to decrease some of his abdominal fat; BMI of 32 could prove even more beneficial at a weight of 185# Weight goal: 218# is a BMI of 38 Labs: Patient states that all of his labs at dialysis are within acceptable limits. Nutritional Concerns: Patient with Class 2 Obesity placing him at moderate nutrition risk. His verbalized nutrition intake is fair; increased starch and fat intake. Question money available for food since most of what he voiced are less expensive options that can contain much salt and fat. No GI symptoms verbalized except for constipation which he states is manageable. Appetite is improved; no teeth but states no issues chewing or swallowing. States usual functional capacity. Excess fat stores observed but ample muscle stores. Assessment/Plan: There are no nutritional contraindications to transplant noted in regards to BMI criterion. However, much of patient's weight is abdominally located which places him at a higher surgical risk. Will discuss with transplant team to determine any other surgical or medical barriers. Discussed diet modifications post kidney transplant and rationale. Provided printed information as reinforcement of our discussion: Potential Nutrition Issues after Transplant Due to medication SideEffects. Good comprehension verbalized: means for contact provided. Plan communicated to Construction Person for Documentation in patient's transplant medical record. Remain available for questions/concerns. documented in this encounter Plan of Treatment Not on file documented as of this encounter Visit Diagnoses Diagnosis Pre-transplant evaluation for kidney transplant Other specified pre-operative examination documented in this encounter Care Teams Medical Detailist Relationship Specialty Start Date End Date Jarad Keller DNP PCP - General Family Medicine 06/05/18 02/09/21 documented as of this encounter
--- OUTSIDE RECORDS SUMMARY | 2023-12-28 16:39 | XMS_ITS | Encounter Summary ---
[place] [address] Care Team Providers Care Occupational Therapy Aides Teacher Name Role Phone Jarad Keller DNP Primary Care Provider [phone] Encounter Details Date Type Department Care Team (Late st Contact Info) Description 07/30/2019 12:25 AM EDT Ancillary Procedure [place] [address] Social History Tobacco Use Types Packs/Day Years [...] Procedure Name Priority Date/Time Associated Diagnosis Comments REQUEST FOR 2ND READ CT HEAD AND SPINE STAT 07/30/2019 12:21 AM EDT documented in this encounter Results * (ABNORMAL) Request For 2nd Read CT Head And Spine (07/30/2019 12:21 AM EDT) Anatomical Region Laterality Modality Head, C-spine, T-spine, L-spine SO Impressions 07/30/2019 2:19 AM EDT 1. ??Nonspecific scattered intracranial hyperdense foci; in the setting of trauma, small focal intraparenchymal hemorrhages cannot be excluded. Differential considerations include hyperdense lesions (such as cavernomas, hyperdense micrometastases, etc.); consider repeat examination, MRI barring contraindication, or comparison with any potential prior examinations (none on this PACS). 2. ??RIGHT orbital vitreous hemorrhage (less likely mass), indeterminate age. 3. ??Nondisplaced fracture of the distal tip of the C7 RIGHT transverse process. 4. ??Unexpected finding: Very mild nasopharyngeal asymmetry, may or may not be debris; consider direct visualization to exclude potential malignancy. Alternatively, depending on the [id number], this can potentially be reevaluated on clinically-decided follow-up examination of the intracranial hyperdense foci. Preliminary report signed by: Rylan Bella at 07/30/2019 1:15 AM I have personally reviewed the image(s) and the resident's interpretation and agree with the findings, Huang Hernandez at 07/30/2019 2:19 AM Thank you for letting us participate in the care of this patient. For questions regarding this report, please contact the number below. ? Electronically signed by: Huagn Hernandez [facility] ([phone]), at 07/30/2019 2:19 AM Narrative 07/30/2019 2:19 AM EDT EXAMINATION: REQUEST FOR 2ND READ CT HEAD AND SPINE CLINICAL HISTORY: s/p fall; What Modality is the exam? CT Scan; Body Part (please add comments as necessary): Head and C spine; Sending Institution [facility]; Date of exam [id number]; I believe a reinterpretation of this exam may alter care of Patient. Yes TECHNIQUE: Reinterpretation of outside images: * ??Noncontrast CT head. * ??Noncontrast CT cervical spine. COMPARISON: None FINDINGS: HEAD: Nonspecific patchy bihemispheric white matter hypodensity may be sequela of chronic microangiopathy although other etiologies are not excluded. Right gangliocapsular lacune. LEFT frontal and posterior RIGHT pericallosal small hyperdense foci, and question additional punctate focus in the anterior LEFT frontal cortex superiorly. No significant mass effect appreciated. Polyp or mucous retention cyst within the RIGHT maxillary sinus. Scattered mucosal thickening within the paranasal sinuses. Included mastoid air cells appear well-aerated. Calvarium appears intact. Diffuse hyperattenuation within of the right globe which demonstrates mildly decreased volume, compatible with age-indeterminate globe injury with vitreous hemorrhage (less likely mass). Very mild asymmetry in the nasopharynx eccentric to the LEFT. CERVICAL SPINE: No evidence of acute traumatic malalignment appreciated. Nondisplaced fracture of the distal tip of the C7 RIGHT transverse process. Unremarkable prevertebral soft tissues. Multilevel degenerative changes. Atlantooccipital coalition. Minimal nasopharyngeal asymmetry. Resulting Agency Comment Unexpected Finding Procedure Note Huang Hernandez MD - 07/30/2019 EXAMINATION: REQUEST FOR 2ND READ CT HEAD AND SPINE CLINICAL HISTORY: s/p fall; What Modality is the exam? CT Scan; BodyPart (please add comments as necessary): Head and C spine; [facility] Date of exam [id number]; I believe a reinterpretation of this exam may altercare of Patient. Yes TECHNIQUE: Reinterpretation of outside images: * Noncontrast CT head. * Noncontrast CT cervical spine. COMPARISON: None FINDINGS: HEAD: Nonspecific patchy bihemispheric white matter hypodensity may be sequelaof chronic microangiopathy although other etiologies are not excluded. Right gangliocapsular lacune. LEFT frontal and posterior RIGHT pericallosal small hyperdense foci, and question additional punctate focus in the anterior LEFT frontal cortex superiorly. No significant mass effect appreciated. Polyp or mucous retention cyst within the RIGHT maxillary sinus. Scattered mucosal thickening within the paranasal sinuses. Included mastoid air cells appear well-aerated. Calvarium appears intact. Diffuse hyperattenuation within of the right globe which demonstratesmildly decreased volume, compatible with age-indeterminate globe injury withvitreous hemorrhage (less likely mass). Very mild asymmetry in the nasopharynx eccentric to the LEFT. CERVICAL SPINE: No evidence of acute traumatic malalignment appreciated. Nondisplaced fracture of the distal tip of the C7 RIGHT transverseprocess. Unremarkable prevertebral soft tissues. Multilevel degenerative changes. Atlantooccipital coalition. Minimal nasopharyngeal asymmetry. IMPRESSION 1. Nonspecific scattered intracranial hyperdense foci; in the settingof trauma, small focal intraparenchymal hemorrhages cannot be excluded. Differential considerations include hyperdense lesions (such ascavernomas, hyperdense micrometastases, etc.); consider repeat examination, MRIbarring contraindication, or comparison with any potential prior examinations(none on this PACS). 2. RIGHT orbital vitreous hemorrhage (less likely mass), indeterminateage. 3. Nondisplaced fracture of the distal tip of the C7 RIGHT transverseprocess. 4. Unexpected finding: Very mild nasopharyngeal asymmetry, may or may notbe debris; consider direct visualization to exclude potential malignancy. Alternatively, depending on the [id number], this can potentially be reevaluated on clinically-decided follow-up examination of theintracranial hyperdense foci. Preliminary report signed by: Rylan Bella at 07/30/2019 1:15 AM I have personally reviewed the image(s) and the resident's interpretationand agree with the findings, Huang Hernandez at 07/30/2019 2:19 AM Thank you for letting us participate in the care of this patient. Forquestions regarding this report, please contact the number below. Kimani Kiser MD IMG OUTSIDE INTERPRE TATION ORDERABLES documented in this encounter Visit Diagnoses Not on filedocumented in this encounter Care Teams Occupational Therapy Aides Teacher Relationship Specialty Start Date End Date Jarad Keller DNP PCP - General Family Medicine 06/05/18 02/09/21 documented as of this encounter
--- OUTSIDE RECORDS SUMMARY | 2023-12-28 16:39 | XMS_ITS | Encounter Summary ---
[place] [address] Care Team Providers Care Software Test Specialist Name Role Phone Jarad Keller DNP Primary Care Provider [phone] Encounter Details Date Type Department Care Team (Late st Contact Info) Description 07/29/2019 10:25 PM EDT Ancillary Procedure [place] [address] Social History Tobacco Use Types Packs/Day Years [...] Diagnosis Comments FILM LIBRARY STORAGE ONLY DX UPPER EXTREMITY STAT 07/29/2019 10:14 PM EDT documented in this encounter Results * Film Library- Storage Only DX Upper Extremity (07/29/2019 10:14 PM EDT) Narrative [facility] - 07/29/2019 10:14 PM EDT This exam is auto-finalizing. It's purpose is for storage only. Aaron Dover MD IMG FILM LIBRARY ORD ERABLES [place], [place] documented in this encounter Visit Diagnoses Not on filedocumented in this encounter Care Teams Software Test Specialist Relationship Specialty Start Date End Date Jarad Keller DNP PCP - General Family Medicine 06/05/18 02/09/21 documented as of this encounter
--- OUTSIDE RECORDS SUMMARY | 2023-12-28 16:39 | XMS_ITS | Encounter Summary ---
[place] [address] Care Team Providers Care Veterans Employment Representative Name Role Phone Jarad Keller DNP Primary Care Provider [phone] Encounter Details Date Type Department Care Team (Late st Contact Info) Description 10/19/2018 4:00 PM EDT Tech Visit [place] [address] Mekhi Doss, RVT Social History Tobacco Use Types Packs/Day Years [...] on filedocumented in this encounter Care Teams Veterans Employment Representative Relationship Specialty Start Date End Date Jarad Keller DNP PCP - General Family Medicine 06/05/18 02/09/21 documented as of this encounter
--- OUTSIDE RECORDS SUMMARY | 2023-12-28 16:39 | XMS_ITS | Encounter Summary ---
Author Organization [facility] [place] [address] Care Team Providers Care Assistant Principal Name Role Phone Jarad Keller DNP Primary Care Provider [phone] Reason for Visit * Reason Comments Trauma * Auth/Cert Specialty Diagnoses / Procedures Referred By Puneet t Referred To Contact Diagnoses Fall Fall, initial encounter Referral ID Status Reason Start Date Expiration Date Visits Re quested Visits Authorized [id number] 1 1 Encounter Details Date Type Department Care Team (Latest Contact Info) Description 07/29/2019 11:53 PM EDT - 08/04/2019 3:45 PM EDT Hospital Encounter [address] [place] [address] Kimani Kiser MD [facility] [place] [address] Aaron Dover MD [facility] [place] [address] Eliot Cohen MD [facility] [place] [address] Fall, initial encounter; Closed fracture of proximal end of right humerus, unspecified fracture morphology, initial encounter; Closed nondisplaced fracture of right clavicle, unspecified part of clavicle, initial encounter; Closed fracture of right scapula, unspecified part of scapula, initial encounter; Closed nondisplaced fracture of shaft of right clavicle, initial encounter; Troponin level elevated Discharge Disposition: Rehab Center in a Facility Social History Tobacco Use Types Packs/Day Years [...] Sign Reading Time Taken Comments Blood Pressure 161/66 08/04/2019 12:02 PM EDT Pulse 105 08/04/2019 12:02 PM EDT Temperature 36.8 ??C (98.2 ??F) 08/04/2019 1 2:02 PM EDT Respiratory Rate 18 08/04/2019 12:0 2 PM EDT Oxygen Saturation 100% 08/04/2019 12: 02 PM EDT Inhaled Oxygen Concentration - - Weight 103.4 kg (227 lb 15.3 oz) 07/30/2019 1:27 AM EDT Height 162.6 cm (5' 4) 07/30/2019 1:27 AM EDT Body Mass Index 39.13 07/30/2019 1:27 AM EDT documented in this encounter Discharge Summaries * Kendra Goff APRN - 08/04/2019 8:27 AM EDT Trauma Discharge Summary Patient Name: Maurice Rudolph Patient Age: 59 y.o. : 1960 Attending Physician: Eliot Cohen MD Date of Admission: 07/29/2019 Date of Discharge: 08/04/2019 ID: 59 y.o.yo pt admitted on 07/29/2019 with the following injuries: Injury Intervention Follow-up BRAIN: Bilateral hemorrhagic cerebral contusions ? mTBI ? Neurosurgery consulted: CTA??carotids CT head stable ?? Keppra 500mg BID x7 days ? Neurosurgery sign off. The patient is appropriate for discharge from neurosurgical standpoint. Ok for qShift??neuro checks. Ok for chemoprophylaxis. Please see final recommendations below. ? Restart ASA in 1 week. SBP<160. Remainder of care per Trauma Service. ?? Avoid overstimulation?? Follow-up will be scheduled in the Neurosurgical Clinic in??2??weeks. Follow-up imaging ordered:??CT Head SPINE:?? C7 transverse process fx T1-T4 R transverse process fxs L1-L2 transverse process fxs ?- No bending, twisting, or listing >5lbs ? Trauma clinic prn PULM: R occult pulmonary contusion Left lower lobe contusion acute vs. Chronic issue R 2nd rib fracture R 3rd rib fx at the costotransverse junction Question fracture of the??R 1st rib head? 24 interval f/u CXR stable ? Trauma Clinic 10-14 days with repeat CXR EXTR: Right clavicle fx Right scapula fx Right comminuted humeral head fx Orthopedic Surgery: Non-op intervention -NWB RUE, sling for comfort Right clavicle and elbow films completed?? Orthopedic Clinic ABRASIONS: Multiple scattered abrasions ?? Local wound care ?? Trauma Clinic or Primary Chief Estimator? Scheduled Appointments: The following appointments have been scheduled on your behalf: Future Appointments Date Time Provider Department Center 08/07/2019 8:45 AM [facility] DX ROOM 1 [facility] X[facility] 08/07/2019 9:00 AM [facility] DX ROOM 1 [facility] 08/07/2019 10:00 AM Faye Valle PA [facility] ORTH 3C [facility] 08/17/2019 9:15 AM [facility] DB XRAY ROOM 2 MH Xray [facility] Rad 08/17/2019 10:30 AM Jacinta Pressley APRN [facility] SURG [facility] 08/17/2019 11:[address] [facility] [address] [facility] Rad 08/17/2019 1:00 PM Lavern Velez APRN [facility] [id number] [facility] 08/29/2019 2:30 PM Ceasar Roy MD [facility] ENDO [facility] 10/12/2019 2:30 PM Harmeet Arvizu MD [facility] OPHT 4B [facility] Other In-hospital Issues: - Acute pain - Impaired mobility - ESRD, on dialysis - Elevated troponin Secondary Diagnosis: Past Medical History: Diagnosis Date ??? Acute [...] dialysis, with long-term current use of insulin Allergies: No Known Allergies Operations/Procedures: None HPI: Maurice A Rudolph??is a 59 y.o.??male??presents to [facility] s/p fall. ??Description of events leading upto injury includes patient was walking up his stairs at home, lost control, and fell down 12 stairs. He states that the last thing he remembers before losing consciousness is the realization that he is falling.??He was worked up with imaging at [facility] prior to transfer here. ?? Primary survey revealed:??intact??airway, equal??breath sounds/respirations, present 2+??peripheralpulses with stable??vital signs and no signs??of bleeding, GCS 15??(6 - Follows simple motor commands,??5 - Alert and oriented,??4 - Opens eyes on own), and??complete??exposure. ?? Secondary survey is as follows: Traumatic Brain Injury - Small bilateral intraparenchymal cerebral hematomas ?? Pulmonary/Chest - Right pulmonary contusion with small hemothorax - LLL opacity - likely atelectasis versus contusion - Right 2nd rib fracture ?? Musculoskeletal - Comminuted right humeral head fracture - Right mid clavicle fracture, non-displaced - Right scapular spine fracture, non-displaced - L1, L2 transverse process fractures - T1-T4 transverse process fractures - As mentioned above, right 2nd rib fracture No injuries on tertiary Hospital Course: Maurice Rudolph is a 59 y.o. male involved in a fall on 07/29/2019. Neurosurgery was consulted for the head and spine injuries and cardiology was consulted for the troponinemia. He was admitted to the step-down unit for monitoring and cycled troponins. He remained stable and was downgraded to floorstatus. While inpatient nephrology was consulted and patent resumed his normal HD routine. PT/OT recommended rehab and he accepted a bed at [facility]. Hi transfer was postponed on 08/02 due to some behavior changes which are attributed to his frontal head injury. Maurice Rudolph's pain was adequately controlled, he was maintaining adequate oxygen saturation onroom air, and was hemodynamically stable. He was tolerating a diet without abdominal complaints andvoiding adequately. WBC and Hgb were stable. He was ambulating with gait belt. Maurice Rudolph wasevaluated by the Surgery Team and deemed medically stable for discharge on 08/04/2019. PLAN:NEURO: - Acute pain: Acetaminophen 1000mg q6hrs Lidoderm patches Home gabapentin 300mg TID neuropathic pain ?? Home sertraline re-started ?? SPINE: - No bending, twisting, or listing >10lbs x2-4 weeks pending pain control ?? ACTIVITY: - NWB RUE in sling ?? PULM: - IS hourly - Early/frequent mobilization - Pain control, aggressive pulmonary toilet, O2 to maintain >90 ?? CARDIAC: Chronic HTN Re-started amlodipine (hold parameters) Re-started losartan (hold parameters) ?? Chronic HLD Re-started home pravastatin ([facility] formulary equivalent atorvastatin 10) ?? Chronic Edema Re-started home bumetanide ?? Chronic CAD Holding ASA x1 week (per NSGY on 07/30) resume 08/06 ?? ?Syncope Trending troponins, EKG notable for PVCs Will obtain TTE while inpatient. CTA of carotids performed ?? FEN/GI: - Carb Control diet 75/75/90 CHO counting level 3 - NBO: miralax, pericolace ?? RENAL: ESRD Requiring Hemodialysis Nephrology involved Staying with regular dialysis schedule T, Th, S Home renvela re-started ?? UA pending ?? HEME: - CBC stable; follow clinically relevant ?? ENDO: Insulin Dependent Type 2 Diabetes Mellitus Diabetes management consulted, appreciate insulin management recommendations Instructions for Lantus Insulin (LONG ACTING) ?? Inject LANTUS 30 units insulin every 24 hours - giving at noon to facilitate transition back to insulin pump when ready. ?? Instructions for Mealtime Humalog Insulin ?? This is the rapid-acting insulin, used at mealtime to prevent a high BG after you eat. Check your BG before each meal. ?? Inject 0-8 units of Humalog for breakfast, 0-8 units for lunch and 0-8 units for dinner ?? May need to increase as his diet improves he was taking 12 units with each meal at home . ?? For a low carb/small meal take 4 units, medium meal take 6 units for a large/high carb meal take 8 units ? ADD the following dose if your blood glucose is over 140 at meal time ? Blood Sugar HUMALOG DOSE 140-159 ADD 1 unit 160-179 ADD 2 units 180-199 ADD 3 units 200-219 ADD 4 units 220-239 ADD 5 units 240-259 ADD 6 units 260-279 ADD 7 units 280-299 ADD 8 units >300 ADD 9 units and call Doctor 6. If you should forget to take your Humalog. ?? If it is less than an hour since you ate your meal, take the calculated dose ?? If more than an hour has passed since you ate, recheck blood glucose and dose accordingly. Try to get some extra exercise and drink a lot of water to help with the high blood sugar. Treatment of Low Blood Sugar (Hypoglycemia) If your BG is lower than 80, you are likely to feel shaky, sweaty and lightheaded. This is a signalthat your body needs more sugar. Quickly eat or drink a small serving of something sweet, such as: 4 ounces fruit juice or regular (not diet) soda 6 collegefeedavers small box of raisins 4 glucose tablets (~15 gm of glucose) If your BG is very low <50, you can double the amount above or take 30 gm of glucose gel/tablets. Sit and rest and you should feel better within a few minutes. Once you are feeling better, try to determine why your BG was so low. Common causes of hypoglycemia include skipping a meal, lots of exercise, too much insulin or any combination of these things. Understanding the cause my help you to avoid another low BG in the future. Call your doctor for blood sugars less than 80 or greater than 300 twice in one day to have your insulin doses adjusted. ?? MSK: See injury box for MSK injury list Local wound care for abrasions ?? ID: - Follow for signs and symptoms of infection if +38.5C then newby culture and obtain WBC ?? PROPHYLAXIS - DVT prophylaxis: SQH, d/c when fully mobile - Tetanus vaccination status reviewed: Will administer prior to DC. ?CONSULTS: - Orthopedic Surgery - Neurosurgery - Cardiology ?? REFERRALS: TBD ?? FOLLOW UP: As above ?? Active issues to be addressed at discharge: Acute pain, impaired mobility ?? Incidental Findings: - Focal infrarenal abdominal aortic ectasia up to 2.4 cm. -Very mild nasopharyngeal asymmetry, may or may not be debris; consider direct visualization to exclude potential malignancy. Alternatively, depending on the [id number], this can potentially be reevaluated on clinically-decided follow- up examination of the intracranial hyperdense foci. [x]? Incidental Findings Form Completed and reviewed with patient by Kendra Goff APRN on 08/04/2019 Pending Lab Data at Discharge: None Pertinent Lab Data: Recent Labs 08/03/19 0715 WBC 5.9 HGB 9.6* HCT 29.8* PLATELET 153 Recent Labs 08/03/19 0715 08/02/19 0642 NA 132* 130* K 4.3 4.7 CL 89* 88* CO2 27 26 BUN 43* 50* CREATININE 5.44* 7.35* GLUCOSE 140 -- CALCIUM 8.9 8.6 Microbiology Data: None Pertinent Imaging: Ct Head Wo Contrast (generic): 07/30/2019 FINDINGS: Right frontal and subinsular areas of hypoattenuation are similar to the prior. Exam is somewhat limited by motion. There is an area of relative hypoattenuation in the left inferior temporal lobe which may be artifactual. Postsurgical changes are present in the right globe. No intracranial hemorrhage identified. No new fracture. CTA: There is mild atherosclerotic plaque on the arch. Right carotid: Common carotid origin is normal. There is atherosclerotic plaque at the carotid bifurcation without ICA stenosis. The ICA is otherwise normal in caliber. Left carotid: There is mild plaquealong the course of the common carotid without stenosis. Calcified plaque is present bifurcation without ICA stenosis. The ICA is normal in caliber. Right vertebral artery: There is plaque at the origin with moderate narrowing. The cervical vertebral arteries otherwise normal in caliber. Left artery: Left vertebral artery is small throughout its course. The origin is normal. The left vertebral artery terminates primarily as PICA. Nonvascular findings: Right clavicle fracture is present. There is surrounding soft tissue swelling. ?? 1. Somewhat limited head CT due to motion. No new hemorrhage identified. 2. No evidence of carotid or vertebral artery injury. Scattered atherosclerotic disease as above. ?? Xr Cervical Spine 2 Or 3 Views07/30/2019 FINDINGS: C1-C6 adequately visualized. No spondylolisthesis. C3 anterior inferior endplate osteophyte. C5 anterior inferior osteophyte. Multilevel posterior facet sclerosis These findings are compatible with degenerative osteoarthritis. ?? Osteoarthritis ?? Xr Chest Pa & Lateral (generic): 07/30/2019 FINDINGS: Right lung is well-inflated and there is no focal consolidation. Left lung is well-inflated. Blunted left lateral and posterior costophrenic sulcus may indicate small effusion atelectasis or a combination. Enlarged cardio- pericardial silhouette is secondary to prominent epicardial fat pads as demonstrated on CT. Median sternotomy wires are present and there are left mediastinal surgicalclips. No pneumothorax. The known clavicle fracture is not well delineated, and the known right humeral fracture is not included in the [id number]. Known right second rib fracture is not visible. There is curvilinear density along the right apical and lateral chest wall that is similar to prior,most likely extrapleural blood. No distended loops of bowel. EKG leads overlie the patient and obscure the [id number]. ?? 1. Small left pleural fluid collection versus atelectasis or both. 2. Small volume presumed extrapleural blood at the right apex and along the right lateral chest wall secondary to known right rib fracture which is not well visualized. ?? Xr Thoracic Spine 2 View Including Swimmers View07/30/2019 FINDINGS: No spondylolisthesis, as visualized. As well as can be visualized, anterior endplate arthropathy, compatible with osteoarthritis. ?? No spondylolisthesis, as visualized. As well as can be visualized, anterior endplate arthropathy, compatible with osteoarthritis. ?? Ct Angiogram Carotids 07/30/2019 FINDINGS: Right frontal and subinsular areas of hypoattenuation are similar to the prior. Exam is somewhat limited by motion. There is an area of relative hypoattenuation in the left inferior temporal lobe which may be artifactual. Postsurgical changes are present in the right globe. No intracranial hemorrhage identified. No new fracture. CTA: There is mild atherosclerotic plaque on the arch. Right carotid: Common carotid origin is normal. There is atherosclerotic plaque at the carotid bifurcation without ICA stenosis. The ICA is otherwise normal in caliber. Left carotid: There is mild plaquealong the course of the common carotid without stenosis. Calcified plaque is present bifurcation without ICA stenosis. The ICA is normal in caliber. Right vertebral artery: There is plaque at the origin with moderate narrowing. The cervical vertebral arteries otherwise normal in caliber. Left artery: Left vertebral artery is small throughout its course. The origin is normal. The left vertebral artery terminates primarily as PICA. Nonvascular findings: Right clavicle fracture is present. There is surrounding soft tissue swelling. ?? 1. Somewhat limited head CT due to motion. No new hemorrhage identified. 2. No evidence of carotid or vertebral artery injury. Scattered atherosclerotic disease as above. ?? Request For 2nd Read Ct Chest Abdomen Pelvis 07/30/2019 FINDINGS: CHEST: Lungs/Pleura: Right posterior upper lobe mild dependent attenuation opacity with adjacent small heterogeneous effusion, most consistent with a contusion. Dependent consolidative opacity in the left lung base. Mediastinum/Lizeth: Unremarkable. Cardiovascular: Unremarkable. ABDOMEN/PELVIS: Liver: Unremarkable. Gallbladder: Unremarkable. Spleen: Unremarkable. Pancreas: Unremarkable. Adrenal Glands: Unremarkable. RIGHT Kidney: Unremarkable. LEFT Kidney: Duplicated collecting system. Urinary Bladder: Unremarkable. GI: Unremarkable. Mesentery/Peritoneum: Unremarkable. Lymphatic System: Unremarkable. Vasculature: Focal infrarenal abdominal aortic ectasia up to 2.4 cm. External Soft Tissues: Muscle edema/hematoma about the RIGHT shoulder, with small RIGHT axillary hematoma and surrounding edema. Nonspinal Osseous Structures: * Comminuted fracture of the right humerus proximally centered about the greater without convincing extension to the glenohumeral joint space. * Subtle focal nondisplaced fracture of the right scapular spine medially. * Nondisplaced comminuted fractures of the right mid clavicle. * Question fracture of the RIGHT first rib head. * Nondisplaced fracture of the right second rib posteriorly with comminuted fracture of the head at the costovertebral junction. * Nondisplaced fracture of the RIGHT third rib neck at the costotransverse junction. Thoracic spine: * Nondisplaced fracture of the T1 and T4 RIGHT transverse processes. * Comminuted fracture of the T2 and T3 RIGHT transverse processes. Lumbar spine: Nondisplaced fractures of the L1 and L2 LEFT transverse processes. ?? 1. Dependent right upper lobe contusion with adjacent small hemothorax. 2. Small left lower lobe dependent streaky opacity could be additional contusion versus atelectasis, aspiration, or potentially pneumonia. 3. RIGHT axillary hematoma and edema. 4. Multiple concomitant fractures as detailed above in the respective Nonspinal, Thoracic, and Lumbar sections above. 5. Please note, potential visceral or vascular injury/pathology cannot be excluded in the absence of intravenous contrast. ?? Request For 2nd Read Ct Head And Spine 07/30/2019 FINDINGS: HEAD: Nonspecific patchy bihemispheric white matter hypodensity may be sequela of chronicmicroangiopathy although other etiologies are not excluded. Right gangliocapsular lacune. LEFT frontal and posterior RIGHT pericallosal small hyperdense foci, and question additional punctate focus in the anterior LEFT frontal cortex superiorly. No significant mass effect appreciated. Polyp or mucous retention cyst within the RIGHT maxillary sinus. Scattered mucosal thickening within the paranasal sinuses. Included mastoid air cells appear well- aerated. Calvarium appears intact. Diffuse hyperattenuation within of the right globe which demonstrates mildly decreased volume, compatible with age-i ndeterminate globe injury with vitreous hemorrhage (less likely mass). Very mild asymmetry in the nasopharynx eccentric to the LEFT. CERVICAL SPINE: No evidence of acute traumatic malalignment appreciated. Nondisplaced fracture of the distal tip of the C7 RIGHT transverse process. Unremarkable prevertebral soft tissues. Multilevel degenerative changes. Atlantooccipital coalition. Minimal nasopharyngeal asymmetry. ?? 1. Nonspecific scattered intracranial hyperdense foci; in the setting of trauma, small focal intraparenchymal hemorrhages cannot be excluded. Differential considerations include hyperdense lesions (such as cavernomas, hyperdense micrometastases, etc.); consider repeat examination, MRI barring contra indication, or comparison with any potential prior examinations (none on this PACS). 2. RIGHT orbital vitreous hemorrhage (less likely mass), indeterminate age. 3. Nondisplaced fracture of the distal tip of the C7 RIGHT transverse process. 4. Unexpected finding: Very mild nasopharyngeal asymmetry, may or may not be debris; consider direct visualization to exclude potential malignancy. Alternatively, depending on the [id number], thiscan potentially be reevaluated on clinically-decided follow-up examination of the intracranial hyperdense foci. ?? 07/30/2019XR SHOULDER RIGHT (GENERIC), XR CLAVICLE RIGHT (GENERIC) CLINICAL Bones: 1. Right Humerus- Comminuted displaced proximal humeral fracture redemonstrated. No intra-articularno intraarticular extension. 3. Right clavicle-nondisplaced oblique mid clavicular fracture. The AC joint alignment and coracoclavicular interval are preserved. 4. Right second rib-displaced lateral fracture seen on the clavicle examination. AC Joint: There osteophytes. Normal AC joint alignmentent Glenohumeral joint: Small osteophytes. Normal alignment. Soft tissue: periarticular calcifications: None ?? Xr Clavicle Right (generic) 07/30/2019 FINDINGS/IMPRESSION: Oblique nondisplaced comminuted fracture of the mid right clavicle; associatedsoft tissue swelling/hematoma. The AC joint alignment features maintained. Partially viewed fracture of the humerus proximally in the region of the greater tubercle. ?? Xr Elbow 3 Views Right (generic)07/30/2019 FINDINGS/IMPRESSION: Soft tissue swelling about the elbow, more prominent medially where there may also be a hematoma. No acute fracture, dislocation, or joint effusion seen. Olecranon enthesophyte. Antecubital IV catheter is present. ?? Result Date: 07/30/2019: XR CHEST ONE VIEW FINDINGS: Diffuse hazy opacity in the left mid and lower hemithorax. Mild hazy opacity in the rightupper hemithorax. The cardiac silhouette is obscured. Nonspecific pulmonary vascular prominence. Mildly displaced fracture of the right proximal humerus. Nondisplaced fracture of the right mid clavicle. Median sternotomy wires and cardiac surgical clips are present. ?? 1. Diffuse hazy opacity of the left mid and lower hemithorax which could represent atelectasis, consolidation, contusion, effusion. 2. Mild hazy opacity in the right upper hemithorax which could also represent atelectasis or a contusion. 3. Mildly displaced fracture of the right proximal humerus and nondisplaced fracture of the right clavicle. Discharge Physical Examination: Vital Signs: Last value Range last 24hrs Temperature Temp: 36.5 ??C (97.7 ??F) Temp: [36.4 ??C (97.5 ??F)-36.9 ??C (98.4 ??F)] Heart Rate Heart Rate: 95 Heart Rate: [95-97] Blood Pressure BP: 137/66 BP: (103-160)/(60-85) Respiratory Rate Resp: 17 Resp: [12-18] SpO2 SpO2: 99 % SpO2: [93 %-100 %] Physical Exam: GENERAL: Alert, awake and in no apparent distress, interactive, appropriate HEAD: Normocephalic, atraumatic NECK: Supple, trachea midline, no masses, no edema, no contusions or abrasions, no obvious JVD. LUNGS: CTAB, No increased WOB, no accessory muscle use CARDIAC: Regular rate and rhythm without murmur or extra heart sounds, S1-S2 ABDOMEN/GI: Soft, nontender, nondistended, no abrasions or contusions. audible Bowel sounds no distention, hernias or scars. Without obvious ascites PELVIS: Stable to iliac and anterior/posterior manipulation. EXT: Normal and symmetric movement, normal range of motion, no edema, distal CMS intact ??4. Capillary refill less than 3 seconds and pedal/radial pulses intact. SKIN: No lacerations, abrasions or contusions on complete anterior and posterior skin exam. NEURO: Mental Status: Awake and alert to person place and time SPINE: Lower cervical/upper thoracic tenderness, mild lumbar tenderness. Current Medications: The following medications have been prescribed for you. If you notice any adverse reactions to yourmedications, please contact your primary care physician immediately or go to the nearest Emergency Department. Your Medications New Medications Dose Details acetaminophen 500 mg Tab Commonly known as: Tylenol Take 2 tablets by mouth every 6 hours. 1,000 mg Quantity: 30 tablet Refills: 1 amLODIPine 5 mg Tab Commonly known as: Norvasc Take 1 tablet by mouth daily. Start taking on: August 05, 2019 5 mg Quantity: 90 tablet Refills: 3 epoetin babs-epbx 10,000 unit/mL Soln Commonly known as: Retacrit Inject 1 mL subcutaneously once as needed in Dialysis. 10,000 Units Quantity: 1 mL Refills: 0 heparin (Porcine) 5,000 unit/mL Soln Inject 1 mL subcutaneously every 8 hours. 5,000 Units Refills: 0 insulin glargine Soln Inject 30 Units subcutaneously daily. 30 Units Refills: 12 insulin lispro Soln Commonly known as: HumaLOG Inject 0-15 Units subcutaneously 3 times daily (with meals). 0-15 Units Refills: 12 levETIRAcetam 500 mg Tab Commonly known as: Keppra Take 1 tablet by mouth 2 times daily for 2 days. 500 mg Quantity: 4 tablet Refills: 0 lidocaine 5 % Ptmd Commonly known as: LIDODERM Apply 1 patch onto the skin daily. (leave on for 12 hours and remove for 12 hours) Start taking on: August 05, 2019 Quantity: 30 patch Refills: 0 melatonin 3 mg Tab Take 2 tablets by mouth nightly. 6 mg Refills: 0 sevelamer carbonate 800 mg Tab Commonly known as: Renvela Take 1 tablet by mouth 3 times daily (with meals). 800 mg Refills: 0 Continued medications with new dosing Dose Details aspirin 325 mg Tab Take 1 tablet by mouth daily. Start taking on: August 07, 2019 What changed: These instructions start on August 07, 2019. If you are unsure what to do until then, ask your doctor or other care provider. 325 mg Quantity: 90 tablet Refills: 3 Continued medications, unchanged Dose Details blood sugar diagnostic strips Strp Use to check blood sugar 3 times daily Quantity: 200 each Refills: 11 bumetanide 1 mg Tab Commonly known as: Bumex Take 2 mg by mouth 2 times daily. 2 mg Refills: 0 camphor-menthoL Lotn Commonly known as: SARNA Apply 1 each topically 3 times daily as needed for Itching (left LE). 1 each Quantity: 222 mL Refills: 0 gabapentin 300 mg Cap Commonly known as: Neurontin Take 300 mg by mouth 3 times daily. 300 mg Refills: 0 glucagon (Human Recombinant) 1 mg Solr Use in case of emergency for low blood sugar Quantity: 1 each Refills: 5 loratadine 10 mg Tab Commonly known as: Claritin Take 10 mg by mouth daily as needed for Allergies. 10 mg Refills: 0 losartan 50 mg Tab Commonly known as: Cozaar Take 50 mg by mouth daily. 50 mg Refills: 0 pravastatin 40 mg Tab Commonly known as: PRAVACHOL Take 40 mg by mouth daily. 40 mg Refills: 0 sertraline 25 mg Tab Commonly known as: Zoloft Take 25 mg by mouth daily. 25 mg Refills: 0 tamsulosin 0.4 mg Cap Commonly known as: Flomax Take 0.4 mg by mouth daily. 0.4 mg Refills: 0 Vitamin B Complex-Vitamin C-Folic Acid 1 mg Cap Commonly known as: Nephrocap Take 1 capsule by mouth daily. 1 capsule Refills: 0 STOPPED Medications insulin aspart U-100 Soln Commonly known as: NovoLOG V-GO 40 Supriya Generic drug: sub-q insulin device, 40 unit Disposition: Rehab Scheduled Appointments: The following appointments have been scheduled on your behalf: Future Appointments Date Time Provider Department Center 08/07/2019 8:45 AM [facility] DX ROOM 1 MH Xray [facility] Rad 08/07/2019 9:00 AM [facility] DX ROOM 1 MH Xray [facility] Rad 08/07/2019 10:00 AM Faye Valle PA [facility] ORTH 3C [facility] 08/17/2019 9:15 AM [facility] DB XRAY ROOM 2 MH Xray [facility] Rad 08/17/2019 10:30 AM Jacinta Pressley APRN [facility] SURG [facility] 08/17/2019 11:[address] [facility] [address] [facility] Rad 08/17/2019 1:00 PM Lavern Velez APRN [facility] [id number] [facility] 08/29/2019 2:30 PM Ceasar Roy MD [facility] ENDO [facility] 10/12/2019 2:30 PM Harmeet Arvizu MD [facility] OPHT 4B [facility] Outpatient Services/Studies: CT Head wo Contrast (Generic) Standing Status: Future Standing Exp. Date: 02/27/20 Question Response Notes Where will study be performed? [facility] Radiology [120] Special Instructions Given to Patient at Discharge:. An After Visit Summary was printed and given to the patient. Patient Instructions NON-OPERATIVE HEAD INJURY/BLEED DISCHARGE INSTRUCTIONS PRESCRIPTION INSTRUCTIONS: Please see the medication reconciliation list on this discharge summary for a current list of your medications. Stop the use of blood thinning medications until instructed otherwise by your neurosurgical team. This includes medications known as antiplatelet, anticoagulant, and non-steroidal anti-inflammatory (NSAIDs) drugs. Common crjo-jkq-yhzjljo medications which should be avoided include Aspirin, ibuprofen, and naproxen among others. These medications are sometimes combined with other drugs or are sold under a trade name. Common prescription medications which should be avoided include Plavix (clopidogrel) and Coumadin (warfarin) among others. The following medications are commonly prescribed after admission. An [x] indicates that these medications have been prescribed for you. [] Antiepileptics - seizure prophylaxis: Keppra (levetiracetam) or Dilantin (phenytoin) Antiepileptics are commonly prescribed to prevent seizures. Take the medication as directed. WHEN TO SEEK MEDICAL CARE: New neurologic symptoms - Worsening headaches not controlled with your pain medication - Drowsiness, confusion, and lethargy - Visual changes - Difficulty speaking or slurred speech - Facial droop - New weakness or sensory changes - New unsteadiness when walking - Seizures Constipation not relieved by diet and over the counter stool softeners and laxatives Nausea/vomiting (upset stomach) not controlled with anti-nausea medication Symptoms of a deep venous thrombosis (DVT) or pulmonary embolism (PE): - Swelling/warmth/redness of the leg - Pain in the leg, which can be worse with standing or walking - Chest pain or shortness of breath To help prevent a DVT: - Exercise regularly. Walking, at least several times daily, is helpful. - Ankle pump exercises (like pressing and releasing the gas pedal) should be done regularly. - Keep hydrated with water or other clear liquids (coffee/tea/cola can dehydrate you). - Avoid alcohol and crossing your legs. - Remember not to sit or lay in bed, while awake, for prolonged amounts of time. DIET: - You may resume your usual diet. - Prune juice or prunes can be added to your diet to assist with any constipation. ACTIVITY: - Avoid activities that are physically demanding or require a lot of concentration. They can make your symptoms worse and slow your recovery. - Avoid activities, such as contact or recreational sports, that could lead to a head injury. - When your health child care development specialist says you are well enough, return to your normal activities gradually, not all at once. - Talk with your health child care development specialist about when you can return to work. DRIVING: - Do not drive while taking narcotic pain medication. [x] You may return to driving 2 weeks after your injury. [] Do NOT drive until cleared by Neurosurgery. [] You have had a seizure and driving is prohibited (see state regulations). Speak to your doctor for further recommendations. FOLLOW UP PLAN: Appointment: Please follow-up in the Neurosurgery Clinic in [x] 2 weeks or [] 4-6 weeks with a Neurosurgery Associate Provider. Please call the Neurosurgery Office at [phone] if you do not receive a scheduled appointment within two weeks Imaging: [] No Imaging required at follow-up. 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 Neurosurgery consulted: CTA??carotids CT head stable ?? Keppra 500mg BID x7 days ? Neurosurgery sign off. The patient is appropriate for discharge from neurosurgical standpoint. Ok for qShift??neuro checks. Ok for chemoprophylaxis. Please see final recommendations below. ? Restart ASA in 1 week. SBP<160. Remainder of care per Trauma Service. ?? Avoid overstimulation?? Follow-up will be scheduled in the Neurosurgical Clinic in??2??weeks. Follow-up imaging ordered:??CT Head SPINE:?? C7 transverse process fx T1-T4 R transverse process fxs L1-L2 transverse process fxs ?- No bending, twisting, or listing >5lbs ? Trauma clinic prn PULM: R occult pulmonary contusion Left lower lobe contusion acute vs. Chronic issue R 2nd rib fracture R 3rd rib fx at the costotransverse junction Question fracture of the??R 1st rib head? 24 interval f/u CXR stable ? Trauma Clinic 10-14 days with repeat CXR EXTR: Right clavicle fx Right scapula fx Right comminuted humeral head fx Orthopedic Surgery: Non-op intervention -NWB RUE, sling for comfort Right clavicle and elbow films completed?? Orthopedic Clinic ABRASIONS: Multiple scattered abrasions ?? Local wound care ?? Trauma Clinic or Primary Chief Estimator? As a result of your CT scans, you were found to have the following incidental findings, please discuss with your primary care provider at you next visit: -??Focal infrarenal abdominal aortic ectasia up to 2.4 cm.?? -Very mild nasopharyngeal asymmetry, may or may not be debris; consider direct visualization to exclude potential malignancy. Alternatively, depending on the crxei-uo-nscu, this can potentially be reevaluated on clinically-decided follow- up examination of the intracranial hyperdense foci. CALL YOUR PHYSICIAN IF: 1. You have a fever greater than 101F 2. You have diarrhea or vomiting for >24 hours, or stop having bowel movements and passing flatus 3. You have worsening pain, not controlled with your pain medication. 4. You develop redness, swelling, or new drainage from your wounds Follow up: Future Appointments Date Time Provider Department Center 08/07/2019 8:45 AM [facility] DX ROOM 1 MH Xray [facility] Rad 08/07/2019 9:00 AM [facility] DX ROOM 1 MH Xray [facility] Rad 08/07/2019 10:00 AM Faye Valle PA [facility] ORTH 3C [facility] 08/17/2019 9:15 AM [facility] DB XRAY ROOM 2 MH Xray [facility] Rad 08/17/2019 10:30 AM Jacinta Pressley APRN [facility] SURG [facility] 08/17/2019 11:[address] [facility] [address] [facility] Rad 08/17/2019 1:00 PM Lavern Velez APRN [facility] [id number] [facility] 08/29/2019 2:30 PM Ceasar Roy MD [facility] ENDO [facility] 10/12/2019 2:30 PM Harmeet Arvizu MD [facility] OPHT 4B [facility] Driving Restrictions: - No driving if you are too sore to enter or exit your vehicle comfortably, or if you are too sore to easily check your blind spot. No driving while using prescription pain medications Activities: - Discuss return to work or school with your provide at your follow up appointment in the trauma clinic. - Increase your activity slowly. If it hurts don't do it, but try again the following day. - You may tire easily, so frequent naps may be necessary.. - Talk with your doctor about when you can return to work or school. - You may take a shower but have someone nearby in case you need help. Diet: Eat a well-balanced diet. Fresh fruits, vegetables and fiber-containing foods are recommended. Thiswill assist in wound healing. Recommendations: - Take it easy for two weeks. Remember, If it hurts, don't do it. - Take several slow, short walks each day for the first two weeks, and gradually increase your distance. We recommend at least 4 times a day. Wound Care: - You can shower per usual routine - Do not submerge wounds under water (avoid spas, pools and bathtubs) until fully healed. - Do not use creams, oils, or ointments on the wound. - See follow-up appointments for removal of sutures/luis. Comfort: - Some soreness can be expected. - Take your pain medication as needed and prescribed. - Taper use of pain medication as pain lessens. Follow up appointments: 1. You will have follow-up appointments at [facility] as indicated in the ???Future Appointments and Orders?? section of your discharge summary. If X-rays or CT scans have been ordered for you prior to this appointment you will need to report to the Radiology department, desk 3T, 1 hour prior to your clinic appointment time. 2. If you do not have a scheduled follow-up appointment listed at the time of discharge, you will be notified of your scheduled appointment on the next business . Please call [phone] if you do not hear from us by that time, as your timely follow-up is very important to us. Your care was managed by the Trauma and Acute Care Surgery Team at [facility]. If you have any questions or concerns, please feel free to contact us. Provider Contact Information: General Surgery: [facility] (after business hours): Primary Care Physician: Jarad Keller General Instructions Orthopedic Surgery Discharge Instructions Injury: Right Proximal Humerus Fx, Right Clavicle Fx, Right Scapula Fx trial non-operative management in sling. Activity level: 1. You are Non-weight bearing on your Right arm. 2. Remember to use a Sling at all times for protection and balance. 3. Remember to keep your Right arm elevated as much as possible to decrease swelling and control pain. Anticoagulation: Per primary team. Diet: You may return to your usual diet, but increase your fluids and fiber intake to keep you hydrated and your bowels soft. To help with wound healing increase your intake of high protein foods andfluids. Driving: None until you are cleared to do so by your Orthopedic surgeon. You should not drive whileyou are on narcotic pain meds as they can affect your judgment and reaction time. Call your surgeonwith any questions/concerns. Medications: 1. The pain medication you are on can cause constipation so increase your intake of fluids and fiber while you are on them. The stool softener, Pericolace, that has been prescribed can also be taken to facilitate a bowel movement. You can also take an lsxz-ckl-avrocfm medication, Miralax if needed to combat constipation. 2. If you need a renewal on your narcotic pain medication, you need to give the Orthopedic clinic enough time to process your request. This can take up to three days, so plan accordingly. 3. Continue acetaminophen (Tylenol) 1,000mg every 8 hours as needed for pain. This can be effectivein controlling pain along with your other medications. After that you can take Tylenol as needed per package insert. Do not take more than 3,000mg of acetaminophen in a 24 hour period. 4. Do not take any NSAIDs including ibuprofen, Motrin or Aleve. Shower/Bath: You may shower BUT use a waterproof dressing (plastic bag taped at the top) to cover the incision/dressing. DO NOT submerge the wound. Remember you MUST to observe your weight bearing status and activity limitations when you shower so use a chair or bench for balance if you are unable to safely stand. A sponge bath may be easier. Call your doctor ([phone]) if you develop: 1. Fever greater than 100.5 2. Severe nausea or vomiting 3. Increasing pain that is not controlled by pain medications 4. Increasing redness, swelling, or drainage from incisions 5. Change in sensation Misc: 1. If you are a smoker, quitting is very important to help your fracture heal. You should contact your PCP to assist you with setting up a cessation program. 2. Remember that ICE and elevation are very important to help decrease swelling and control pain. You should use the ICE for 20-30 minutes at a time. 3. To help with bone healing and your overall bone health, your intake of calcium should be at least 1200mg a day and your vitamin D intake should be at least 800 IU per day. 4. You should meet with your primary care provider in the next month to discuss the possibility that you may have osteoporosis. Contact your PCP for an appointment to discuss this as well as possibletreatment for this condition. Orthopedic Recommendations for secondary prevention of fragility fractures based on the National Osteoporosis Foundation guidelines (to be discussed with your PCP) 1. Consider Bone mineral density testing (DEXA) to confirm diagnosis of osteoporosis and determine disease severity and monitor response to treatment in appropriate patients after discharge (patientsover the age of 75 with multiple osteoporosis risk factors warrant treatment without BMD testing). 2. Do not start any bisphosphonate therapy for at least 6 months after your surgery. FOLLOW-UP APPOINTMENTS: 1. You will have follow-up appointments at [facility] as indicated in Future Appointment and Orders. You will have an xray prior to those appointments so please come to Radiology, desk 3T, 1 hour BEFORE your appointment for those x- rays on 08/07/19. 2. If you are being discharged over the weekend or at night and do not have a scheduled appointmentwith Orthopedics, you should be notified about your appointment within the next 1-2 days. Please call if you do not hear about an appointment within that timeframe, as your follow-up is important to us. Future Appointments Date Time Provider Department Center 08/07/2019 8:45 AM [facility] DX ROOM 1 Xray [facility] Rad 08/07/2019 9:00 AM [facility] DX ROOM 1 MH Xray [facility] Rad 08/07/2019 10:00 AM Faye Valle PA [facility] ORTH 3C [facility] 08/29/2019 2:30 PM Ceasar Roy MD [facility] ENDO [facility] 10/12/2019 2:30 PM Harmeet Arvizu MD [facility] OPHT 4B [facility] If you have questions or concerns: Tuesday through Tuesday, 8 AM - 5 PM, please call Zachery Vergara MD's office at . If it is after 5 PM or on the weekend, please call and ask to speak with the Orthopedic resident on-call. Insulin Discharge Instructions Instructions for Lantus Insulin (LONG ACTING) Inject LANTUS 30 units insulin every 24 hours - giving at noon to facilitate transition back to insulin pump when ready. Instructions for Mealtime Humalog Insulin This is the rapid-acting insulin, used at mealtime to prevent a high BG after you eat. Check your BG before each meal. Inject 0-8 units of Humalog for breakfast, 0-8 units for lunch and 0-8 units for dinner May need to increase as his diet improves he was taking 12 units with each meal at home . For a low carb/small meal take 4 units, medium meal take 6 units for a large/high carb meal take 8 units ADD the following dose if your blood glucose is over 140 at meal time Blood Sugar HUMALOG DOSE 140-159 ADD 1 unit 160-179 ADD 2 units 180-199 ADD 3 units 200-219 ADD 4 units 220-239 ADD 5 units 240-259 ADD 6 units 260-279 ADD 7 units 280-299 ADD 8 units >300 ADD 9 units and call Doctor 6. If you should forget to take your Humalog. If it is less than an hour since you ate your meal, take the calculated dose If more than an hour has passed since you ate, recheck blood glucose and dose accordingly. Try to get some extra exercise and drink a lot of water to help with the high blood sugar. Treatment of Low Blood Sugar (Hypoglycemia) If your BG is lower than 80, you are likely to feel shaky, sweaty and lightheaded. This is a signalthat your body needs more sugar. Quickly eat or drink a small serving of something sweet, such as: 4 ounces fruit juice or regular (not diet) soda 6 lifesavers small box of raisins 4 glucose tablets (~15 gm of glucose) If your BG is very low <50, you can double the amount above or take 30 gm of glucose gel/tablets. Sit and rest and you should feel better within a few minutes. Once you are feeling better, try to determine why your BG was so low. Common causes of hypoglycemia include skipping a meal, lots of exercise, too much insulin or any combination of these things. Understanding the cause my help you to avoid another low BG in the future. Call your doctor for blood sugars less than 80 or greater than 300 twice in one day to have your insulin doses adjusted. Your care was managed by the Trauma and Acute Care Surgery Team at [facility]. If you have any questions or concerns, please feel free to contact us. Provider Contact Information: General Surgery Clinic: Nurses line for questions: [facility] (after business hours): CC: CHINO Casanova APRN Signed: Kendra Goff APRN Department of Surgery 08/04/2019 Trauma pager [phone] documented in this encounter Discharge Instructions * Discharge Instructions* Narcisa Tovar APRN - 08/03/2019 4:07 PM EDT Orthopedic Surgery Discharge Instructions Injury: Right Proximal Humerus Fx, Right Clavicle Fx, Right Scapula Fx trial non-operative management in sling. Activity level: 1. You are Non-weight bearing on your Right arm. 2. Remember to use a Sling at all times for protection and balance. 3. Remember to keep your Right arm elevated as much as possible to decrease swelling and control pain. Anticoagulation: Per primary team. Diet: You may return to your usual diet, but increase your fluids and fiber intake to keep you hydrated and your bowels soft. To help with wound healing increase your intake of high protein foods andfluids. Driving: None until you are cleared to do so by your Orthopedic surgeon. You should not drive whileyou are on narcotic pain meds as they can affect your judgment and reaction time. Call your surgeonwith any questions/concerns. Medications: 1. The pain medication you are on can cause constipation so increase your intake of fluids and fiber while you are on them. The stool softener, Pericolace, that has been prescribed can also be taken to facilitate a bowel movement. You can also take an xtkt-mir-uwzthzm medication, Miralax if needed to combat constipation. 2. If you need a renewal on your narcotic pain medication, you need to give the Orthopedic clinic enough time to process your request. This can take up to three days, so plan accordingly. 3. Continue acetaminophen (Tylenol) 1,000mg every 8 hours as needed for pain. This can be effectivein controlling pain along with your other medications. After that you can take Tylenol as needed per package insert. Do not take more than 3,000mg of acetaminophen in a 24 hour period. 4. Do not take any NSAIDs including ibuprofen, Motrin or Aleve. Shower/Bath: You may shower BUT use a waterproof dressing (plastic bag taped at the top) to cover the incision/dressing. DO NOT submerge the wound. Remember you MUST to observe your weight bearing status and activity limitations when you shower so use a chair or bench for balance if you are unable to safely stand. A sponge bath may be easier. Call your doctor ([phone]) if you develop: 1. Fever greater than 100.5 2. Severe nausea or vomiting 3. Increasing pain that is not controlled by pain medications 4. Increasing redness, swelling, or drainage from incisions 5. Change in sensation Misc: 1. If you are a smoker, quitting is very important to help your fracture heal. You should contact your PCP to assist you with setting up a cessation program. 2. Remember that ICE and elevation are very important to help decrease swelling and control pain. You should use the ICE for 20-30 minutes at a time. 3. To help with bone healing and your overall bone health, your intake of calcium should be at least 1200mg a day and your vitamin D intake should be at least 800 IU per day. 4. You should meet with your primary care provider in the next month to discuss the possibility that you may have osteoporosis. Contact your PCP for an appointment to discuss this as well as possibletreatment for this condition. Orthopedic Recommendations for secondary prevention of fragility fractures based on the National Osteoporosis Foundation guidelines (to be discussed with your PCP) 1. Consider Bone mineral density testing (DEXA) to confirm diagnosis of osteoporosis and determine disease severity and monitor response to treatment in appropriate patients after discharge (patientsover the age of 75 with multiple osteoporosis risk factors warrant treatment without BMD testing). 2. Do not start any bisphosphonate therapy for at least 6 months after your surgery. FOLLOW-UP APPOINTMENTS: 1. You will have follow-up appointments at [facility] as indicated in Future Appointment and Orders. You will have an xray prior to those appointments so please come to Radiology, desk 3T, 1 hour BEFORE your appointment for those x- rays on 08/07/19. 2. If you are being discharged over the weekend or at night and do not have a scheduled appointmentwith Orthopedics, you should be notified about your appointment within the next 1-2 days. Please call if you do not hear about an appointment within that timeframe, as your follow-up is important to us. Future Appointments Date Time Provider Department Center 08/07/2019 8:45 AM [facility] DX ROOM 1 Xray [facility] Rad 08/07/2019 9:00 AM [facility] DX ROOM 1 Xray [facility] Rad 08/07/2019 10:00 AM Faye Valle PA [facility] ORTH 3C [facility] 08/29/2019 2:30 PM Ceasar Roy MD [facility] ENDO [facility] 10/12/2019 2:30 PM Harmeet Arvizu MD [facility] OPHT [address] [place] [address] If you have questions or concerns: Tuesday through Tuesday, 8 AM - 5 PM, please call Zachery Vergara MD's office at . If it is after 5 PM or on the weekend, please call and ask to speak with the Orthopedic resident on-call. Insulin Discharge Instructions Instructions for Lantus Insulin (LONG ACTING) Inject LANTUS 30 units insulin every 24 hours - giving at noon to facilitate transition back to insulin pump when ready. Instructions for Mealtime Humalog Insulin This is the rapid-acting insulin, used at mealtime to prevent a high BG after you eat. Check your BG before each meal. Inject 0-8 units of Humalog for breakfast, 0-8 units for lunch and 0-8 units for dinner May need to increase as his diet improves he was taking 12 units with each meal at home . For a low carb/small meal take 4 units, medium meal take 6 units for a large/high carb meal take 8 units ADD the following dose if your blood glucose is over 140 at meal time Blood Sugar HUMALOG DOSE 140-159 ADD 1 unit 160-179 ADD 2 units 180-199 ADD 3 units 200-219 ADD 4 units 220-239 ADD 5 units 240-259 ADD 6 units 260-279 ADD 7 units 280-299 ADD 8 units >300 ADD 9 units and call Doctor 6. If you should forget to take your Humalog. If it is less than an hour since you ate your meal, take the calculated dose If more than an hour has passed since you ate, recheck blood glucose and dose accordingly. Try to get some extra exercise and drink a lot of water to help with the high blood sugar. Treatment of Low Blood Sugar (Hypoglycemia) If your BG is lower than 80, you are likely to feel shaky, sweaty and lightheaded. This is a signalthat your body needs more sugar. Quickly eat or drink a small serving of something sweet, such as: 4 ounces fruit juice or regular (not diet) soda 6 lifesavers small box of raisins 4 glucose tablets (~15 gm of glucose) If your BG is very low <50, you can double the amount above or take 30 gm of glucose gel/tablets. Sit and rest and you should feel better within a few minutes. Once you are feeling better, try to determine why your BG was so low. Common causes of hypoglycemia include skipping a meal, lots of exercise, too much insulin or any combination of these things. Understanding the cause my help you to avoid another low BG in the future. Call your doctor for blood sugars less than 80 or greater than 300 twice in one day to have your insulin doses adjusted. * Patient Instructions* Kendra Goff APRN - 07/31/2019 4:26 PM EDT NON-OPERATIVE HEAD INJURY/BLEED DISCHARGE INSTRUCTIONS PRESCRIPTION INSTRUCTIONS: Please see the medication reconciliation list on this discharge summary for a current list of your medications. Stop the use of blood thinning medications until instructed otherwise by your neurosurgical team. This includes medications known as antiplatelet, anticoagulant, and non-steroidal anti-inflammatory (NSAIDs) drugs. Common xuwl-thr-gkdnwhp medications which should be avoided include Aspirin, ibuprofen, and naproxen among others. These medications are sometimes combined with other drugs or are sold under a trade name. Common prescription medications which should be avoided include Plavix (clopidogrel) and Coumadin (warfarin) among others. The following medications are commonly prescribed after admission. An [x] indicates that these medications have been prescribed for you. [] Antiepileptics - seizure prophylaxis: Keppra (levetiracetam) or Dilantin (phenytoin) Antiepileptics are commonly prescribed to prevent seizures. Take the medication as directed. WHEN TO SEEK MEDICAL CARE: New neurologic symptoms - Worsening headaches not controlled with your pain medication - Drowsiness, confusion, and lethargy - Visual changes - Difficulty speaking or slurred speech - Facial droop - New weakness or sensory changes - New unsteadiness when walking - Seizures Constipation not relieved by diet and over the counter stool softeners and laxatives Nausea/vomiting (upset stomach) not controlled with anti-nausea medication Symptoms of a deep venous thrombosis (DVT) or pulmonary embolism (PE): - Swelling/warmth/redness of the leg - Pain in the leg, which can be worse with standing or walking - Chest pain or shortness of breath To help prevent a DVT: - Exercise regularly. Walking, at least several times daily, is helpful. - Ankle pump exercises (like pressing and releasing the gas pedal) should be done regularly. - Keep hydrated with water or other clear liquids (coffee/tea/cola can dehydrate you). - Avoid alcohol and crossing your legs. - Remember not to sit or lay in bed, while awake, for prolonged amounts of time. DIET: - You may resume your usual diet. - Prune juice or prunes can be added to your diet to assist with any constipation. ACTIVITY: - Avoid activities that are physically demanding or require a lot of concentration. They can make your symptoms worse and slow your recovery. - Avoid activities, such as contact or recreational sports, that could lead to a head injury. - When your health child care development specialist says you are well enough, return to your normal activities gradually, not all at once. - Talk with your health child care development specialist about when you can return to work. DRIVING: - Do not drive while taking narcotic pain medication. [x] You may return to driving 2 weeks after your injury. [] Do NOT drive until cleared by Neurosurgery. [] You have had a seizure and driving is prohibited (see state regulations). Speak to your doctor for further recommendations. FOLLOW UP PLAN: Appointment: Please follow-up in the Neurosurgery Clinic in [x] 2 weeks or [] 4-6 weeks with a Neurosurgery Associate Provider. Please call the Neurosurgery Office at [phone] if you do not receive a scheduled appointment within two weeks Imaging: [] No Imaging required at follow-up. 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 Neurosurgery consulted: CTA??carotids CT head stable ?? Keppra 500mg BID x7 days ? Neurosurgery sign off. The patient is appropriate for discharge from neurosurgical standpoint. Ok for qShift??neuro checks. Ok for chemoprophylaxis. Please see final recommendations below. ? Restart ASA in 1 week. SBP<160. Remainder of care per Trauma Service. ?? Avoid overstimulation?? Follow-up will be scheduled in the Neurosurgical Clinic in??2??weeks. Follow-up imaging ordered:??CT Head SPINE:?? C7 transverse process fx T1-T4 R transverse process fxs L1-L2 transverse process fxs ?- No bending, twisting, or listing >5lbs ? Trauma clinic prn PULM: R occult pulmonary contusion Left lower lobe contusion acute vs. Chronic issue R 2nd rib fracture R 3rd rib fx at the costotransverse junction Question fracture of the??R 1st rib head? 24 interval f/u CXR stable ? Trauma Clinic 10-14 days with repeat CXR EXTR: Right clavicle fx Right scapula fx Right comminuted humeral head fx Orthopedic Surgery: Non-op intervention -NWB RUE, sling for comfort Right clavicle and elbow films completed?? Orthopedic Clinic ABRASIONS: Multiple scattered abrasions ?? Local wound care ?? Trauma Clinic or Primary Chief Estimator? As a result of your CT scans, you were found to have the following incidental findings, please discuss with your primary care provider at you next visit: -??Focal infrarenal abdominal aortic ectasia up to 2.4 cm.?? -Very mild nasopharyngeal asymmetry, may or may not be debris; consider direct visualization to exclude potential malignancy. Alternatively, depending on the irvvl-cu-ttud, this can potentially be reevaluated on clinically-decided follow- up examination of the intracranial hyperdense foci. CALL YOUR PHYSICIAN IF: 1. You have a fever greater than 101F 2. You have diarrhea or vomiting for >24 hours, or stop having bowel movements and passing flatus 3. You have worsening pain, not controlled with your pain medication. 4. You develop redness, swelling, or new drainage from your wounds Follow up: Future Appointments Date Time Provider Department Center 08/07/2019 8:45 AM [facility] DX ROOM 1 MH Xray [facility] Rad 08/07/2019 9:00 AM [facility] DX ROOM 1 MH Xray [facility] Rad 08/07/2019 10:00 AM Faye Valle PA [facility] ORTH 3C [facility] 08/17/2019 9:15 AM [facility] DB XRAY ROOM 2 MH Xray [facility] Rad 08/17/2019 10:30 AM Jacinta Pressley APRN [facility] SURG [facility] 08/17/2019 11:[address] [facility] [address] [facility] Rad 08/17/2019 1:00 PM Lavern Velez APRN [facility] [id number] [facility] 08/29/2019 2:30 PM Ceasar Roy MD [facility] ENDO [facility] 10/12/2019 2:30 PM Harmeet Arvizu MD [facility] OPHT 4B [facility] Driving Restrictions: - No driving if you are too sore to enter or exit your vehicle comfortably, or if you are too sore to easily check your blind spot. No driving while using prescription pain medications Activities: - Discuss return to work or school with your provide at your follow up appointment in the trauma clinic. - Increase your activity slowly. If it hurts don't do it, but try again the following day. - You may tire easily, so frequent naps may be necessary.. - Talk with your doctor about when you can return to work or school. - You may take a shower but have someone nearby in case you need help. Diet: Eat a well-balanced diet. Fresh fruits, vegetables and fiber-containing foods are recommended. Thiswill assist in wound healing. Recommendations: - Take it easy for two weeks. Remember, If it hurts, don't do it. - Take several slow, short walks each day for the first two weeks, and gradually increase your distance. We recommend at least 4 times a day. Wound Care: - You can shower per usual routine - Do not submerge wounds under water (avoid spas, pools and bathtubs) until fully healed. - Do not use creams, oils, or ointments on the wound. - See follow-up appointments for removal of sutures/luis. Comfort: - Some soreness can be expected. - Take your pain medication as needed and prescribed. - Taper use of pain medication as pain lessens. Follow up appointments: 1. You will have follow-up appointments at [facility] as indicated in the ???Future Appointments and Orders?? section of your discharge summary. If X-rays or CT scans have been ordered for you prior to this appointment you will need to report to the Radiology department, desk 3T, 1 hour prior to your clinic appointment time. 2. If you do not have a scheduled follow-up appointment listed at the time of discharge, you will be notified of your scheduled appointment on the next business day. Please call [phone] if you do not hear from us by that time, as your timely follow-up is very important to us. Your care was managed by the Trauma and Acute Care Surgery Team at [facility]. If you have any questions or concerns, please feel free to contact us. Provider Contact Information: General Surgery: [facility] (after business hours): Primary Care Physician: Jarad Keller documented in this encounter Medications at Time of Discharge Medication Sig Dispensed Refills Start Date End Date epoetin babs-epbx (Retacrit) 10,000 unit/mL Solution Inject [...] tablet Take 50 mg by mouth daily. mv,iron/folic/D3/om- 3/dha/epa (PRORENAL QD ORAL) ProRenal QD oral capsule 07/07/2017 02/07/2020 levETIRAcetam (Keppra) 500 mg Tablet Take 1 tablet by mouth 2 times daily for 2 days. 4 tablet 08/04/2019 08/06/2019 acetaminophen (Tylenol) 500 mg Tablet Take 2 tablets by mouth every 6 hours. 30 tablet 1 08/04/2019 02/07/2020 amLODIPine (Norvasc) 5 mg Tablet Take 1 tablet by mouth daily. 90 tablet 3 08/05/2019 05/20/2020 heparin, Porcine, 5,000 unit/mL Solution Inject 1 mL subcutaneously every 8 hours. 08/04/2019 02/07/2020 lidocaine (LIDODERM) 5 % Adhesive Patch, Medicated Apply 1 patch onto the skin daily. (leave on for 12 hours and remove for 12 hours) 30 patch 08/05/2019 12/07/2019 insulin glargine Solution Inject 30 Units subcutaneously daily. 12 08/04/2019 09/14/2019 insulin lispro (HumaLOG) Solution Inject 0-15 Units subcutaneously 3 times daily (with meals). 12 08/04/2019 09/14/2019 camphor-menthol (SARNA) Lotion Apply 1 each topically 3 times daily as needed for Itching (left LE). 222 mL 10/22/2018 02/07/2020 glucagon, Human Recombinant, 1 mg Recon SolnIndications:Type 2 diabetes mellitus with retinopathy, with long-term current use of insulin, macular edema presence unspecified, unspecified laterality, unspecified retinopathy severity Use in case of emergency for low blood sugar 1 each 5 08/18/2018 02/07/2020 loratadine (CLARITIN) 10 mg Tablet Take 10 mg by mouth daily as needed for Allergies. 01/22/2022 tamsulosin (FLOMAX) 0.4 mg Capsule Take 0.4 mg by mouth daily. 01/15/2022 pravastatin (PRAVACHOL) 40 mg Tablet Take 40 mg by mouth daily. 01/15/2022 documented as of this encounter Progress Notes * Aicha Santa RN - 08/04/2019 4:01 PM EDT Patient discharge to rehab. IV removed, site benign. My assessment remains unchanged from my previous assessment. Patient denies chest pain and shortness of breath. RN Discussed pain management with patient, pain tolerable. Patient medicated prior to discharge. Patient has all belongings. Patient received After Visit Summary. These were reviewed. All questions answered. Patient was encouraged to call with questions or concerns. Discharge packet and prescriptions given to ambulance service. Patient discharged to rehab facility via ambulance. Report called to rehab facility. * Christiano Onofre - 08/04/2019 3:45 PM EDT Office of Care Management/Spanish Literature Professor Name: Maurice Rudolph Presenting Issue: Outpatient Dialysis Update Notified [facility] HD unit that patient is scheduled for discharge soon. The dialysis unit is ready for the patient on 08/07/2019. The patient will have a schedule of /Tue at 0745hrs. Plan: Discharge Summary and last acute dialysis records will be faxed to the welder/installer upon discharge. This office will be available to the patient, Stewarding Supervisor-RN and Berry Grower for further assistance. Dialysis Unit Address: [place] [address] P: [phone] F: [phone] Christiano Onofre Resource SpecialistOffice of Care Management/Spanish Literature Professor * Aicha Santa RN - 08/04/2019 3:28 PM EDT RN attempted to call report. Study Specialist at [facility] answered but was unable to get a facility RN toanswer. Instrument Assembly Supervisor stated she will have facility RN call. Aicha Santa RN * Chalino Ceballos MD - 08/04/2019 2:20 PM EDT HYPERTENSION/ NEPHROLOGY PROGRESS NOTE PATIENT: Maurice Rudolph : 1960 ID:- 59 year old man with ESRD on HD (/TUE) at [facility] admitted with Right humeral, scapular, rib fracture and intracranial contusion after fall from down stairs. 24 hours events: Pt seen and examined during hemodialysis. HD uneventful so far tolerating it well. PHYSICAL EXAM: Last value Range last 24 hrs Temperature Temp: 36.8 ??C (98.2 ??F) Temp: [36.5 ??C (97.7 ??F)-36.9 ??C (98.4 ??F)] Heart Rate Heart Rate: (!) 105 Heart Rate: [95-105] Blood Pressure BP: 161/66 BP: (124-161)/(66-85) Respiratory Rate Resp: 18 Resp: [12-18] SpO2 SpO2: 100 % SpO2: [93 %-100 %] Appearance - Alert, Comfortable. Skin - No exanthem. HEENT - Sclera white. Mucous membranes moist. Chest: . Lungs clear to ausculatation w/o wheezes/ rhonchi/ crackles. Heart - S1 and S2 clear w/o murmur, gallop, or rub. JVP not elevated. Abd - Soft. + BS. No bruit. Non tender. Ext - LUE AVF w/ good thrill/ bruit. Warm. No cyanosis. Trace dependent edema. Right arm on sling Neuro -awake moving all 4 limbs STUDIES: Labs: CBC: Recent Labs 08/03/19 0715 08/01/1925 07/31/19 0420 WBC 5.9 8.0 7.3 HGB 9.6* 9.1* 9.2* PLATELET 153 128* 128* Chemistry: Recent Labs 08/03/1971408/02/19 0642 08/01/1925 07/31/19 0420 NA 132* 130* 130* 133* K 4.3 4.7 5.0 4.4 CL 89* 88* 91* 92* CO2 27 26 25 27 BUN 43* 50* 33* 48* CREATININE 5.44* 7.35* 5.44* 6.13* GLUCOSE 140 -- 180 110 Recent Labs 08/03/19 0708/02/19 0642 08/01/19 0625 07/31/19 0420 07/30/19 0610 10/22/18 0944 10/21/18 0642 CALCIUM 8.9 8.6 8.5 8.5 8.6 < > -- 8.5 MAGNESIUM -- -- -- 0.92 0.81 -- -- -- PHOS -- -- -- -- 4.5 -- -- 5.8* PTH -- -- -- -- -- -- 131* -- < > = values in this interval not displayed. LFT's: Recent Labs 08/03/1971408/02/1964108/01/1925 10/19/18 1520 BILITOT 0.5 0.6 0.5 Not Perf BILIDIR -- -- -- Not Perf ALBUMIN 3.7 3.6 3.4 4.1 ALKPHOS 96 86 87 164* ALT 20 22 23 33 AST 21 22 29 69* IMPRESSION/ RECOMMENDATIONS: # ESRD on HD- T//Tue through LUE AVF admitted after fall. -Undergoing hemodialysis today has been uneventful so far. - strict input and output recording - Has anemia of ESRD , hemoglobin is below target range. We will give MICHEL during dialysis - Calcium is normal , check phosphorous , PTH and 25-oh vit D during next blood draw. Continue sevelamer - BP stable on amlodipine and losartan - Dose all meds for ESRD ?? Do not place PICC in this patient to preserve arm veins critical for permanent hemodialysis access . This is an evidence and guideline-based recommendation.Access for blood draws can be provided by a non tunnelled internal jugular catheter catheter placed by Interventional Radiology. (order internal jugular TLC). ?? If opiates are indicated, Morphine, codeine, oxycodone, accumulate and have toxic metabolites inCKD stage 5 and dialysis patients. Fentanyl, methadone, dilaudid, are preferable. Tramadol dose should be reduced by 50% ?? Thanks for letting us participate in the care of this patient. Seen and Discussed w/ Dr. Dallin Ceballos MD Nephrology Fellow Nephrology Acute Care Team Pager Number #[phone] Associated attestation - Petros Zamarripa MD - 08/04/2019 5:32 PM EDT Renal Staff Addendum Patient seen and examined with Dr. Ceballos. I agree with the above note which represents our joint assessment and plan with the following additions: Seen and examined on hemodialysis. Multiple visits for hypotension. UF goal removed and small bolusgiven with improvement. * Christiano Onofre - 08/04/2019 9:44 AM EDT Office of Care Management/Spanish Literature Professor Patient Name: Maurice Rudolph : 1960 Patient has been offered a IRF bed at [facility] arranged for a 1500hrs transport. Ambulance will need: Medicare ambulance form completed and signed (MD or Stewarding Supervisor RN/PICK REMOVER) Copy of patient demographics [place] [facility] [place] [facility] DNR/DNI order, if active No MD to MD report necessary Please call Nursing Report to [phone], ask for welder/installer. Info to accompany patient: Narcotic Prescriptions Copies of Medication Administration Records and IV sheets for past 10 days. Plan: Spanish Literature Professor will be available to the patient and Stewarding Supervisor-RN and/or Social Workerfor further assistance. Patient will be discharged to: [facility] [address] Christiano Onofre Spanish Literature Professor * Opal Garcia, RN - 08/04/2019 8:52 AM EDT Office of Care Management wood drill operator Opal Garcia (pager [phone]) Patient: Maurice Rudolph : 1960 (59 y.o.) Home: [facility] [address] LOS: 5 days Received confirmation from [facility] [phone] that they are prepared to receive patient today Thursday 08/03 and are in agreement with his being transferred at 3:00pm. Requesting Spanish Literature Professor to book S ambulance transport for pain with movement, unhealed fractures, and inability to maintain erect sitting position for duration of transport. Notified sister Adriana [phone] of today's discharge plans. Cofirmed with direct care RN that transfer packet is with patient's chart. Team updated on today's discharge plans. Patient Active Problem List Diagnosis Code ??? Proliferative diabetic retinopathy, both eyes E11.3593 ??? HTN (hypertension) I10 ??? GERD (gastroesophageal reflux disease) K21.9 ??? 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 Hyperopia H52.00 ??? 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 Type 2 diabetes mellitus with stage 5 chronic kidney disease not on chronic dialysis, with long-term current use of insulin E11.22, N18.5, Z79.4 ??? Ocular hypertension of right eye. Postop H40.051 ??? Eye pain H57.10 ??? Pseudophakia of both eyes Z96.1 ??? PCO (posterior capsular opacification) H26.499 ??? Class 2 severe obesity due to excess calories with serious comorbidity and body mass index (BMI) of 39.0 to 39.9 in adult E66.01, Z68.39 ??? Pre-transplant evaluation for kidney transplant Z01.818 ??? Cellulitis L03.90 ??? Closed fracture of right proximal humerus S42.201A ??? Closed nondisplaced fracture of shaft of right clavicle S42.024A ??? Right scapula fracture S42.101A ??? Fall W19.XXXA Care Management will continue to monitor progress, follow for continuity of care, and assist with discharge planning. * Opal Garcia RN - 08/04/2019 8:25 AM EDT Office of Care Management wood drill operator Opal Garcia (pager [phone]) Patient: Maurice Rudolph : 1960 (59 y.o.) Home: [facility] [address] LOS: 5 days [place] from Trauma 5178 that patient will be medically ready for discharge to acute rehab today Thursday 08/03 after dialysis session. Confirmed with direct care RN that patient can be ready for transport at 3:00pm. Left message at [facility] [phone] requesting confirmation of bed availability. Requesting Spanish Literature Professor to contact [facility] via [employer] to confirm bed as well. Planning to request BLS ambulance transport for 3:00pm once [facility] bed is confirmed. Team is aware. Patient Active Problem List Diagnosis Code ??? Proliferative diabetic retinopathy, both eyes E11.3593 ??? HTN (hypertension) I10 ??? GERD (gastroesophageal reflux disease) K21.9 ??? 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 Hyperopia H52.00 ??? 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 Type 2 diabetes mellitus with stage 5 chronic kidney disease not on chronic dialysis, with long-term current use of insulin E11.22, N18.5, Z79.4 ??? Ocular hypertension of right eye. Postop H40.051 ??? Eye pain H57.10 ??? Pseudophakia of both eyes Z96.1 ??? PCO (posterior capsular opacification) H26.499 ??? Class 2 severe obesity due to excess calories with serious comorbidity and body mass index (BMI) of 39.0 to 39.9 in adult E66.01, Z68.39 ??? Pre-transplant evaluation for kidney transplant Z01.818 ??? Cellulitis L03.90 ??? Closed fracture of right proximal humerus S42.201A ??? Closed nondisplaced fracture of shaft of right clavicle S42.024A ??? Right scapula fracture S42.101A ??? Fall W19.XXXA Care Management will continue to monitor progress, follow for continuity of care, and assist with discharge planning. * Eliot Cohen MD - 08/04/2019 7:19 AM EDT Images from the original note were not included. Patient Name: Maurice Rudolph Patient Age: 59 y.o. Birthdate: 1960 Admit date: 07/29/2019 Attending Physician: Eliot Cohen MD Trauma Service - Progress Note Patient Name: Maurice Rudolph : [id number] MR#: [id number] 07/29/2019 Hospital Day 5 days Problem List: Active Hospital Problems Diagnosis ??? Closed fracture of right proximal humerus ??? Closed nondisplaced fracture of shaft of right clavicle ??? Right scapula fracture ??? Fall Resolved Hospital Problems No resolved problems to display. Active Non-Hospital Problems Diagnosis ??? Cellulitis ??? Pre-transplant evaluation for kidney [...] disease) ??? Proliferative diabetic retinopathy, both eyes Scheduled Meds: ??? melatonin 6 mg Oral Nightly ??? heparin (Porcine) 5,000 Units Subcutaneous Q8H RICHELLE ??? levETIRAcetam 500 mg Oral 2 times per day ??? sodium chloride 0.9 % (flush) 5 mL Intravenous BID ??? insulin lispro 1-6 Units Subcutaneous Q4H RICHELLE ??? acetaminophen 1,000 mg Oral Q6H RICHELLE ??? lidocaine 3 patch Transdermal Q24H And ??? lidocaine 3 patch Transdermal Q24H ??? polyethylene glycol (MIRALAX)oral powder 17 g Oral Daily ??? senna 8.6 mg Oral BID ??? insulin glargine 30 Units Subcutaneous Q24H ??? insulin lispro 0-15 Units Subcutaneous TID WC ??? sevelamer carbonate 800 mg Oral TID WC ??? gabapentin 300 mg Oral TID ??? tamsulosin 0.4 mg Oral Daily ??? losartan 50 mg Oral Daily ??? sertraline 50 mg Oral Daily ??? atorvastatin 10 mg Oral QPM ??? bumetanide 2 mg Oral BID ??? amLODIPine 5 mg Oral Daily ??? pantoprazole EC 40 mg Oral Q24H Continuous Infusions: PRN Meds:.epoetin babs-epbx, heparin (porcine), labetalol AND hydrALAZINE, sodium chloride 0.9 % (flush), lidocaine, naloxone, Glucose 40% oral gel OR dextrose 10% OR glucagon (human recombinant) Events over the last 24 hrs: Confusion resolved Subjective: Sleepy but interactive this am Not sob No nausea or emesis Persistent right shoulder pain with arm in a sling but no worse Scheduled Meds: ??? melatonin 6 mg Oral Nightly ??? heparin (Porcine) 5,000 Units Subcutaneous Q8H RICHELLE ??? levETIRAcetam 500 mg Oral 2 times per day ??? sodium chloride 0.9 % (flush) 5 mL Intravenous BID ??? insulin lispro 1-6 Units Subcutaneous Q4H RICHELLE ??? acetaminophen 1,000 mg Oral Q6H RICHELLE ??? lidocaine 3 patch Transdermal Q24H And ??? lidocaine 3 patch Transdermal Q24H ??? polyethylene glycol (MIRALAX)oral powder 17 g Oral Daily ??? senna 8.6 mg Oral BID ??? insulin glargine 30 Units Subcutaneous Q24H ??? insulin lispro 0-15 Units Subcutaneous TID WC ??? sevelamer carbonate 800 mg Oral TID WC ??? gabapentin 300 mg Oral TID ??? tamsulosin 0.4 mg Oral Daily ??? losartan 50 mg Oral Daily ??? sertraline 50 mg Oral Daily ??? atorvastatin 10 mg Oral QPM ??? bumetanide 2 mg Oral BID ??? amLODIPine 5 mg Oral Daily ??? pantoprazole EC 40 mg Oral Q24H Continuous Infusions: PRN Meds:.epoetin babs-epbx, heparin (porcine), labetalol AND hydrALAZINE, sodium chloride 0.9 % (flush), lidocaine, naloxone, Glucose 40% oral gel OR dextrose 10% OR glucagon (human recombinant) No Known Allergies Objective: Physical Exam: Last Set of Vitals and range of vitals over past 24 hours: Last value Range last 24 hrs Temperature Temp: 36.7 ??C (98.1 ??F) Temp: [36.4 ??C (97.5 ??F)-36.9 ??C (98.4 ??F)] Heart Rate Heart Rate: 97 Heart Rate: [97] Blood Pressure BP: 138/66 BP: (103-160)/(60-85) Respiratory Rate Resp: 16 Resp: [16-18] SpO2 SpO2: 99 % SpO2: [80 %-100 %] Physical Exam Awake and alert Follows commands with all extremities 5/5 strength bilat LE (ankle dorsi and plantar flexion) Equal hand grasp bilaterally, slightly weak RUE related to pain in shoulder - unchanged Reg pulse No dyspnea Abdomen protuberant, nontender Laboratory (Last 24 Hours): Recent Results (from the past 24 hour(s)) POCT Glucose Result Value Ref Range POC Glucose 156 65 - 199 mg/dL POCT Glucose Result Value Ref Range POC Glucose 155 65 - 199 mg/dL POCT Glucose Result Value Ref Range POC Glucose 175 65 - 199 mg/dL POCT Glucose Result Value Ref Range POC Glucose 184 65 - 199 mg/dL POCT Glucose Result Value Ref Range POC Glucose 135 65 - 199 mg/dL POCT Glucose Result Value Ref Range POC Glucose 125 65 - 199 mg/dL Current Injuries - mTBI - B hemorrhagic cerebral contusions - R pulmonary contusion, occult - ?LLL contusion vs chronic/pre-existing issue - R 2nd rib fx - R clavicle fx - R scapula fx - R humerus fx - T1-T4 R transverse process fxs - L1-L2 L transverse process fxs - H/O prior CVA (R basal ganglia) Assessment/Plan: Neurologically stable with stable hemorrhagic contusions - mild confusion seems to have resolved GCS 15 Keppra Serial neurologic examination No resp distress or desaturatoin Hemodynamically normal Rising troponin likely demand related - further measurement not recommended by cardiology. No cardiac symptoms noted ECHO with no WMA noted and normal cardiac function EF 60 % with no WMA No acute ischmic changes on recent ECG Cardiology evaluation Recommended ASA and statin On atorvastatin - hold ASA with cerebral contusions Outpatient cardiology referral HD Satirday Ambulate with PT Sling for right scapular and humeral and clavicle fx Tentative plan for acute inpatient rehab today if bed can be arranged ELIOT COHEN MD 08/04/2019 * Sandhya August APRN - 08/03/2019 4:46 PM EDT Trauma Daily Progress Note ID/Mechanism of injury:59 y.o. Male admitted for fall, on 07/30/19 with the following injuries: Injury Intervention Follow-up BRAIN: Bilateral hemorrhagic cerebral contusions ?? mTBI Neurosurgery consulted: CTA carotids CT head stable ?? Keppra 500mg BID x7 days Neurosurgery sign off. The patient is appropriate for discharge from neurosurgical standpoint. Ok for qShift neuro checks. Ok for chemoprophylaxis. Please see final recommendations below. ? Restart ASA in 1 week. SBP<160. Remainder of care per Trauma Service. ?? Avoid overstimulation Follow-up will be scheduled in the Neurosurgical Clinic in 2 weeks. Follow-up imaging ordered: CT Head SPINE: C7 transverse process fx T1-T4 R transverse process fxs L1-L2 transverse process fxs ? Trauma clinic prn PULM: R occult pulmonary contusion Left lower lobe contusion acute vs. Chronic issue R 2nd rib fracture R 3rd rib fx at the costotransverse junction Question fracture of the R 1st rib head ?? 24 interval f/u CXR stable Trauma Clinic 10-14 days with repeat CXR EXTR: Right clavicle fx Right scapula fx Right comminuted humeral head fx Orthopedic Surgery: Non-op intervention -NWB RUE, sling for comfort Right clavicle and elbow films completed Orthopedic Clinic ABRASIONS: Multiple scattered abrasions ?? Local wound care ?? Trauma Clinic or Primary Chief Estimator ?? Problem List: - Acute pain - Impaired mobility - ESRD, on dialysis - Elevated troponin Procedures: None Secondary Issues: Past Medical History: Diagnosis Date ??? Acute [...] dialysis, with long-term current use of insulin 24 Hour Events: Patient found at bedside in praying position last night, patient has no memory of this. Patient having periods of confusion vs odd behavior Current Medications: ??? melatonin 6 mg Oral Nightly ??? heparin (Porcine) 5,000 Units Subcutaneous Q8H RICHELLE ??? levETIRAcetam 500 mg Oral 2 times per day ??? sodium chloride 0.9 % (flush) 5 mL Intravenous BID ??? insulin lispro 1-6 Units Subcutaneous Q4H RICHELLE ??? acetaminophen 1,000 mg Oral Q6H RICHELLE ??? lidocaine 3 patch Transdermal Q24H And ??? lidocaine 3 patch Transdermal Q24H ??? polyethylene glycol (MIRALAX)oral powder 17 g Oral Daily ??? senna 8.6 mg Oral BID ??? insulin glargine 30 Units Subcutaneous Q24H ??? insulin lispro 0-15 Units Subcutaneous TID WC ??? sevelamer carbonate 800 mg Oral TID WC ??? gabapentin 300 mg Oral TID ??? tamsulosin 0.4 mg Oral Daily ??? losartan 50 mg Oral Daily ??? sertraline 50 mg Oral Daily ??? atorvastatin 10 mg Oral QPM ??? bumetanide 2 mg Oral BID ??? amLODIPine 5 mg Oral Daily ??? pantoprazole EC 40 mg Oral Q24H Vital Signs: VITALS (24hr Range): Temp Temp: [36.4 ??C (97.5 ??F)-37.2 ??C (99 ??F)] , HR Heart Rate: --, BP BP: (103-157)/(60-83) , RR Resp: [16-18] , SpO2 SpO2: [80 %-97 %] I/O: Intake/Output Summary (Last 24 hours) at 08/03/2019 1646 Last data filed at 08/03/2019 0500 Gross per 24 hour Intake 340 ml Output 0 ml Net 340 ml Physical Exam: GENERAL: Awake, having periods of decreased alertness but when awoken in very interactive. NAD SKIN: Multiple abrasions. HEENT: Normocephalic, atraumatic.MMM Right pupil irregular, minimally reactive (known severe diabetic retinopathy). Left pupil equal round reactive to light, 2mm Right eye blindness noted (known). NECK:No JVD. CHEST/LUNGS: Lungs are clear to auscultation bilaterally. CARDIAC: S1 and S2 heard clearly. Regular rhythm, normal rate. No murmurs, rubs, or gallops. 2+ radial and DP pulses bilaterally. ABDOMEN/GI: Abdomen is rounded, non-distended, non-tender. Dull to percussion. Normoactive bowel sounds appreciated. EXT: PANDA, RUE in sling. + CMS, LEFT fistula + bruit and thrill NEURO: Alert and oriented to person, place, and time, however at other times answers questions completely wrong, ? Behavior Sensation intact throughout. GCS: 15 Labs: Recent Labs 08/03/19 0715 08/01/19 0625 WBC 5.9 8.0 HGB 9.6* 9.1* HCT 29.8* 28.2* PLATELET 153 128* Recent Labs 08/03/19 0715 08/02/19 0642 08/01/19 0625 NA 132* 130* 130* K 4.3 4.7 5.0 CL 89* 88* 91* CO2 27 26 25 BUN 43* 50* 33* CREATININE 5.44* 7.35* 5.44* GLUCOSE 140 -- 180 CALCIUM 8.9 8.6 8.5 Microbiology: None New Imaging: None in 24 hours Assessment: 59 y.o. male s/p fall ? syncope. 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 PLAN: NEURO: - Acute pain: Acetaminophen 1000mg q6hrs Lidoderm patches Home gabapentin 300mg TID neuropathic pain ?? Home sertraline re-started ?? SPINE: Trauma managing spine; see spine orders C7, T1-4, L1-2 TP fractures. ?? ACTIVITY: NWB RUE in sling ?? PULM: - IS hourly - Early/frequent mobilization - Pain control, aggressive pulmonary toilet, O2 to maintain >90 ?? CARDIAC: Chronic HTN Re-started amlodipine (hold parameters) Re-started losartan (hold parameters) ?? Chronic HLD Re-started home pravastatin ( formulary equivalent atorvastatin 10) ?? Chronic Edema Re-started home bumetanide ?? Chronic CAD Holding ASA until neurosurgery f/u ?? Troponins continue to rise, Cardiology consult requested. ?? FEN/GI: - Carb Control diet 75/75/90 CHO counting level 3 - NBO: miralax, pericolace - Last BM: 08/01 ?? RENAL: ESRD Requiring Hemodialysis Nephrology involved Staying with regular dialysis schedule , , Home renvela re-started ?? UA pending ?? HEME: - CBC stable; follow clinically relevant ?? ENDO: Insulin Dependent Type 2 Diabetes Mellitus Diabetes management consulted, appreciate insulin management recommendations DM team has left recommendations for treatment, pump will not be restarted at this time ?? MSK: See injury box for MSK injury list Local wound care for abrasions ?? ID: - Follow for signs and symptoms of infection if +38.5C then newby culture and obtain WBC ?? CODE STATUS: - Full Code ?? LINES: - PIV ?? PROPHYLAXIS - DVT prophylaxis: SCD, Heparin TID - Tetanus vaccination status reviewed: Will administer prior to DC. ?? DISPO/Discharge Planning: -floor status -CRC working on d/c plan ?? CONSULTS: Orthopedic Surgery Neurosurgery ?? REFERRALS: TBD ?? FOLLOW UP: As above ?? Active issues to be addressed at discharge: Acute pain, impaired mobility ?? Incidental Findings: - Focal infrarenal abdominal aortic ectasia up to 2.4 cm. - Very mild nasopharyngeal asymmetry, may or may not be debris; consider direct visualization to exclude potential malignancy. Alternatively, depending on the [id number], this can potentially be reevaluated on clinically-decided follow- up examination of the intracranial hyperdense foci. []? Incidental Findings Form Completed Sandhya August APRN 08/03/2019 Trauma pager [phone] * Anabela Palacios RN - 08/03/2019 4:04 PM EDT RN-DRY CELL ASSEMBLY MACHINE TENDER, Office of Care Management Anabela Palacios RN,BSN, ACM Pager # [phone] Patient offered bed at [facility] today- medically held due to altered mental status. [facility] can admit on the weekend if medically ready( after hemodialysis). Tamar will be in the admissions office tomorrow at [facility] and can be reached at [phone]. They are asking that insulin pump gets addressed in d/c summary. It can only be restarted prior to d/c if he can self manage the pump. Message left on sister Adriana's phone that he won't be discharged today. Patient placed on weekend CM list. * Narcisa Tovar APRN - 08/03/2019 3:50 PM EDT Images from the original note were not included. Follow Up Diabetes Consult Patient Interview Possible discharge to rehab over the weekend Objective Temp: [36.4 ??C (97.5 ??F)-37.2 ??C (99 ??F)] Heart Rate: -- Resp: [16-18] BP: (103-157)/(60-83) SpO2: [80 %-97 %] Heart Rate from SpO2: [96 bpm-116 bpm] Current Regimen from previous note 1. Lantus 30 units qd 2. Lispro moderate sliding scale for BG>140 3. Meal-associated Lispro 0-15 units tid ac (or 1unit: 8 gm carb ratio for each meal) 4. Diet Carb control level 3 Recent Glucose Levels Recent Labs 08/03/19 1537 08/03/19 1146 08/03/19 0850 08/03/19 0458 08/02/19 2332 08/02/19 1936 08/02/19 1602 08/02/19 1322 08/02/19 0633 08/02/19 0416 08/01/19 2357 08/01/19 1918 POCGLU 175 155 156 156 139 150 183 161 155 132 181 183 ASSESSMENT Patient is a 59 y.o. years old male with PMH significant for DM (Last A1C of 8.6%) who was admittedon 07/29/2019 for multiple injuries due to fall down stairs. Diabetes suboptimally controlled and currently complicated by stress and inflammation of injuries . Currently with variability of blood glucose levels while hospitalized requiring adjustment of insulin regimen and DM medications Excellent glycemic control. He has not been eating well. Continue current plan. Discharge instructions provided. I have reduced the range for meal coverage in the recommendations for rehab since mostrehabs will use a range and not a carb count for meal insulin. DM team signing off, please page DM team if further assistance required. PLAN 1. Lantus 30 units qd 2. Lispro moderate sliding scale for BG>140 3. Meal-associated Lispro 0-15 units tid ac (or 1unit: 8 gm carb ratio for each meal) 4. Diet Carb control level 3 Insulin Discharge Instructions Instructions for Lantus Insulin (LONG ACTING) Inject LANTUS 30 units insulin every 24 hours - giving at noon to facilitate transition back to insulin pump when ready. Instructions for Mealtime Humalog Insulin This is the rapid-acting insulin, used at mealtime to prevent a high BG after you eat. Check your BG before each meal. Inject 0-8 units of Humalog for breakfast, 0-8 units for lunch and 0-8 units for dinner May need to increase as his diet improves he was taking 12 units with each meal at home . For a low carb/small meal take 4 units, medium meal take 6 units for a large/high carb meal take 8 units ADD the following dose if your blood glucose is over 140 at meal time Blood Sugar HUMALOG DOSE 140-159 ADD 1 unit 160-179 ADD 2 units 180-199 ADD 3 units 200-219 ADD 4 units 220-239 ADD 5 units 240-259 ADD 6 units 260-279 ADD 7 units 280-299 ADD 8 units >300 ADD 9 units and call Doctor 6. If you should forget to take your Humalog. If it is less than an hour since you ate your meal, take the calculated dose If more than an hour has passed since you ate, recheck blood glucose and dose accordingly. Try to get some extra exercise and drink a lot of water to help with the high blood sugar. Treatment of Low Blood Sugar (Hypoglycemia) If your BG is lower than 80, you are likely to feel shaky, sweaty and lightheaded. This is a signalthat your body needs more sugar. Quickly eat or drink a small serving of something sweet, such as: 4 ounces fruit juice or regular (not diet) soda 6 lifesavers small box of raisins 4 glucose tablets (~15 gm of glucose) If your BG is very low <50, you can double the amount above or take 30 gm of glucose gel/tablets. Sit and rest and you should feel better within a few minutes. Once you are feeling better, try to determine why your BG was so low. Common causes of hypoglycemia include skipping a meal, lots of exercise, too much insulin or any combination of these things. Understanding the cause my help you to avoid another low BG in the future. Call your doctor for blood sugars less than 80 or greater than 300 twice in one day to have your insulin doses adjusted. Narcisa Tovar APRN [facility] [place] Endocrinology Diabetes Management Pager [phone] * Eldon Bermudez MBBS - 08/03/2019 12:49 PM EDT HYPERTENSION/ NEPHROLOGY PROGRESS NOTE PATIENT: Maurice Rudolph : 1960 ID:- 59 year old man with ESRD on HD (/TUE) at [facility] admitted with Right humeral, scapular, rib fracture and intracranial contusion after fall from down stairs. 24 hours events: Tolerated HD yesterday , This morning he denied chest pain and SOB . Hemodynamically stable. Intakeis 340 cc ,no over night issues PHYSICAL EXAM: Last value Range last 24 hrs Temperature Temp: 36.4 ??C (97.5 ??F) Temp: [36.4 ??C (97.5 ??F)-37.2 ??C (99 ??F)] Heart Rate Heart Rate: (!) 104 Heart Rate: -- Blood Pressure BP: 103/60 BP: (103-157)/(60-83) Respiratory Rate Resp: 16 Resp: [16-18] SpO2 SpO2: 93 % SpO2: [92 %-95 %] Appearance - Alert, Comfortable. Skin - No exanthem. HEENT - Sclera white. Mucous membranes moist. Chest: . Lungs clear to ausculatation w/o wheezes/ rhonchi/ crackles. Heart - S1 and S2 clear w/o murmur, gallop, or rub. JVP not elevated. Abd - Soft. + BS. No bruit. Non tender. Ext - LUE AVF w/ good thrill/ bruit. Warm. No cyanosis. Trace dependent edema. Right arm on sling Neuro - No asterixis. STUDIES: Labs: CBC: Recent Labs 08/03/19 0715 08/01/19 0625 07/31/19 0420 WBC 5.9 8.0 7.3 HGB 9.6* 9.1* 9.2* PLATELET 153 128* 128* Chemistry: Recent Labs 08/03/19 0715 08/02/19 0642 08/01/19 0625 07/31/19 0420 NA 132* 130* 130* 133* K 4.3 4.7 5.0 4.4 CL 89* 88* 91* 92* CO2 27 26 25 27 BUN 43* 50* 33* 48* CREATININE 5.44* 7.35* 5.44* 6.13* GLUCOSE 140 -- 180 110 Recent Labs 08/03/19 0715 08/02/19 0642 08/01/19 0625 07/31/19 0420 07/30/19 0610 10/22/18 0944 10/21/18 0642 CALCIUM 8.9 8.6 8.5 8.5 8.6 < > -- 8.5 MAGNESIUM -- -- -- 0.92 0.81 -- -- -- PHOS -- -- -- -- 4.5 -- -- 5.8* PTH -- -- -- -- -- -- 131* -- < > = values in this interval not displayed. LFT's: Recent Labs 08/03/19 0715 08/02/19 0642 08/01/19 0625 10/19/18 1520 BILITOT 0.5 0.6 0.5 Not Perf BILIDIR -- -- -- Not Perf ALBUMIN 3.7 3.6 3.4 4.1 ALKPHOS 96 86 87 164* ALT 22 23 33 AST 21 22 29 69* IMPRESSION/ RECOMMENDATIONS: # ESRD on HD- T//Tue through LUE AVF admitted after fall. - No clinical and metabolic indication of acute dialysis today . Next dialysis on Tuesday . - strict input and output recording - Has anemia of ESRD , hemoglobin is below target range. We will give MICHEL during dialysis - Calcium is normal , check phosphorous , PTH and 25-oh vit D during next blood draw. Continue sevelamer - BP stable on amlodipine and losartan - Dose all meds for ESRD ?? Do not place PICC in this patient to preserve arm veins critical for permanent hemodialysis access . This is an evidence and guideline-based recommendation.Access for blood draws can be provided by a non tunnelled internal jugular catheter catheter placed by Interventional Radiology. (order internal jugular TLC). ?? If opiates are indicated, Morphine, codeine, oxycodone, accumulate and have toxic metabolites inCKD stage 5 and dialysis patients. Fentanyl, methadone, dilaudid, are preferable. Tramadol dose should be reduced by 50% ?? Thanks for letting us participate in the care of this patient. Seen and Discussed w/ Dr. Dallin Bermudez Nephrology Fellow [id number] Associated attestation - Petros Zamarripa MD - 08/03/2019 2:05 PM EDT Renal Staff Addendum Patient seen and examined with Dr. Bermudez. I agree with the above note which represents our joint assessment and plan with the following additions: Stable ESRD, s/p fall and humeral fx. HD tomorrow per routine. * Sandhya August APRN - 08/03/2019 12:16 PM EDT Note started in error * Eliot Cohen MD - 08/03/2019 10:47 AM EDT Images from the original note were not included. Patient Name: Maurice Rudolph Patient Age: 59 y.o. Birthdate: 1960 Admit date: 07/29/2019 Attending Physician: Eliot Cohen MD Trauma Service - Progress Note Patient Name: Maurice Rudolph : [id number] MR#: [id number] 07/29/2019 Hospital Day 4 days Problem List: Active Hospital Problems Diagnosis ??? Closed fracture of right proximal humerus ??? Closed nondisplaced fracture of shaft of right clavicle ??? Right scapula fracture ??? Fall Resolved Hospital Problems No resolved problems to display. Active Non-Hospital Problems Diagnosis ??? Cellulitis ??? Pre-transplant evaluation for kidney [...] disease) ??? Proliferative diabetic retinopathy, both eyes Scheduled Meds: ??? melatonin 6 mg Oral Nightly ??? heparin (Porcine) 5,000 Units Subcutaneous Q8H RICHELLE ??? levETIRAcetam 500 mg Oral 2 times per day ??? sodium chloride 0.9 % (flush) 5 mL Intravenous BID ??? insulin lispro 1-6 Units Subcutaneous Q4H RICHELLE ??? acetaminophen 1,000 mg Oral Q6H RICHELLE ??? lidocaine 3 patch Transdermal Q24H And ??? lidocaine 3 patch Transdermal Q24H ??? polyethylene glycol (MIRALAX)oral powder 17 g Oral Daily ??? senna 8.6 mg Oral BID ??? insulin glargine 30 Units Subcutaneous Q24H ??? insulin lispro 0-15 Units Subcutaneous TID WC ??? sevelamer carbonate 800 mg Oral TID WC ??? gabapentin 300 mg Oral TID ??? tamsulosin 0.4 mg Oral Daily ??? losartan 50 mg Oral Daily ??? sertraline 50 mg Oral Daily ??? atorvastatin 10 mg Oral QPM ??? bumetanide 2 mg Oral BID ??? amLODIPine 5 mg Oral Daily ??? pantoprazole EC 40 mg Oral Q24H Continuous Infusions: PRN Meds:.heparin (porcine), HYDROmorphone OR [DISCONTINUED] HYDROmorphone, labetalol AND hydrALAZINE, sodium chloride 0.9 % (flush), lidocaine, naloxone, Glucose 40% oral gel OR [id number]% OR glucagon (human recombinant) Events over the last 24 hrs: Confusion sems largely resolved Subjective: Awake, alert in no distress, knows he is at [facility] [facility] and knows it is 2020 Moderate abdominal distension - no change Not sob No nausea or emesis Persistent right shoulder pain with arm in a sling Scheduled Meds: ??? melatonin 6 mg Oral Nightly ??? heparin (Porcine) 5,000 Units Subcutaneous Q8H RICHELLE ??? levETIRAcetam 500 mg Oral 2 times per day ??? sodium chloride 0.9 % (flush) 5 mL Intravenous BID ??? insulin lispro 1-6 Units Subcutaneous Q4H RICHELLE ??? acetaminophen 1,000 mg Oral Q6H RICHELLE ??? lidocaine 3 patch Transdermal Q24H And ??? lidocaine 3 patch Transdermal Q24H ??? polyethylene glycol (MIRALAX)oral powder 17 g Oral Daily ??? senna 8.6 mg Oral BID ??? insulin glargine 30 Units Subcutaneous Q24H ??? insulin lispro 0-15 Units Subcutaneous TID WC ??? sevelamer carbonate 800 mg Oral TID WC ??? gabapentin 300 mg Oral TID ??? tamsulosin 0.4 mg Oral Daily ??? losartan 50 mg Oral Daily ??? sertraline 50 mg Oral Daily ??? atorvastatin 10 mg Oral QPM ??? bumetanide 2 mg Oral BID ??? amLODIPine 5 mg Oral Daily ??? pantoprazole EC 40 mg Oral Q24H Continuous Infusions: PRN Meds:.heparin (porcine), HYDROmorphone OR [DISCONTINUED] HYDROmorphone, labetalol AND hydrALAZINE, sodium chloride 0.9 % (flush), lidocaine, naloxone, Glucose 40% oral gel OR % OR glucagon (human recombinant) No Known Allergies Objective: Physical Exam: Last Set of Vitals and range of vitals over past 24 hours: Last value Range last 24 hrs Temperature Temp: 36.7 ??C (98.1 ??F) Temp: [36.7 ??C (98.1 ??F)-37.2 ??C (99 ??F)] Heart Rate Heart Rate: (!) 104 Heart Rate: -- Blood Pressure BP: 122/66 BP: (119-157)/(65-83) Respiratory Rate Resp: 16 Resp: [16-20] SpO2 SpO2: 95 % SpO2: [92 %-98 %] Physical Exam Awake and alert Follows commands with all extremities 5/5 strength bilat LE (ankle dorsi and plantar flexion) Equal hand grasp bilaterally, slightly weak RUE related to pain in shoulder Reg pulse No dyspnea Abdomen protuberant, nontender Laboratory (Last 24 Hours): Recent Results (from the past 24 hour(s)) POCT Glucose Result Value Ref Range POC Glucose 161 65 - 199 mg/dL POCT Glucose Result Value Ref Range POC Glucose 183 65 - 199 mg/dL POCT Glucose Result Value Ref Range POC Glucose 150 65 - 199 mg/dL POCT Glucose Result Value Ref Range POC Glucose 139 65 - 199 mg/dL POCT Glucose Result Value Ref Range POC Glucose 156 65 - 199 mg/dL Ammonia Result Value Ref Range Ammonia 16 16 - 60 mcmol/L Comprehensive metabolic panel (non-fasting) Result Value Ref Range Glucose Lvl 140 65 - 199 mg/dL BUN 43 (H) 10 - 20 mg/dL Creatinine 5.44 (H) 0.80 - 1.50 mg/dL Sodium 132 (L) 135 - 145 mmol/L Potassium 4.3 3.5 - 5.0 mmol/L Chloride 89 (L) 98 - 107 mmol/L CO2 27 22 - 31 mmol/L Anion Gap 16 (H) 5 - 15 mmol/L Calcium 8.9 8.5 - 10.5 mg/dL Total Protein 8.3 (H) 6.1 - 8.0 gm/dL Albumin 3.7 3.2 - 5.2 gm/dL AST 21 0 - 39 unit/L ALT 20 0 - 55 unit/L Alk Phos 96 40 - 130 unit/L Total Bilirubin 0.5 0.2 - 1.3 mg/dL eGFR 11 (L) >=60 mL/min/1.73 m?? eGFR 12 (L) >=60 mL/min/1.73 m?? Hemogram Result Value Ref Range WBC 5.9 4.0 - 9.5 x10(3)/mcL RBC 3.01 (L) 4.58 - 5.54 x10(6)/mcL Hemoglobin 9.6 (L) 13.7 - 16.5 gm/dL Hematocrit 29.8 (L) 40.5 - 48.5 % MCV 99.0 (H) 82.9 - 93.1 fL MCH 31.9 27.5 - 32.1 pg MCHC 32.2 32.0 - 35.7 gm/dL Platelets 153 145 - 357 x10(3)/mcL RDWSD 53.1 (H) 36.0 - 45.0 fL RDWCV 14.9 (H) 11.4 - 13.8 % MPV 9.8 7.6 - 12.9 fL nRBC % Auto 0.0 % nRBC Abs Auto 0.000 0.000 - 0.000 x10(3)/mcL Differential, Automated Result Value Ref Range Neutrophils % 76.7 % Neutr Abs (ANC) 4.50 1.70 - 6.10 x10(3)/mcL Lymphocytes % 8.9 % Lymphocytes Abs 0.5 (L) 0.9 - 3.2 x10(3)/mcL Monocytes % 10.7 % Monocyte Abs 0.6 0.3 - 0.9 x10(3)/mcL Eosinophils % 2.0 % Eosinophils Abs 0.1 0.0 - 0.4 x10(3)/mcL Basophils % 0.7 % Basophils Abs 0.0 0.0 - 0.1 x10(3)/mcL Immature Gran % 1.00 % Pura Gran Abs 0.06 (H) 0.00 - 0.04 x10(3)/mcL POCT Glucose Result Value Ref Range POC Glucose 156 65 - 199 mg/dL Current Injuries - mTBI - B hemorrhagic cerebral contusions - R pulmonary contusion, occult - ?LLL contusion vs chronic/pre-existing issue - R 2nd rib fx - R clavicle fx - R scapula fx - R humerus fx - T1-T4 R transverse process fxs - L1-L2 L transverse process fxs - H/O prior CVA (R basal ganglia) Assessment/Plan: Neurologically stable with stable hemorrhagic contusion - mild confusion seems to have resolved GCS 15 Keppra Serial neurologic examination No resp distress or desaturatoin Hemodynamically normal Rising troponin likely demand related - further measurement not recommended by cardiology ECHO with no WMA noted and normal cardiac function EF 60 % with no WMA No acute ischmic changes on recent ECG Cardiology evaluation Recommended ASA and statin On atorvastatin - hold ASA with cerebral contusions Outpatient cardiology referral HD Satirdau Ambulate with PT Sling for right scapular and humeral and clavicle fx Tentative plan for acute inpatient rehab today if bed can be arranged ELIOT COHEN MD 08/03/2019 * Anabela Palacios RN - 08/03/2019 10:39 AM EDT RN-DRY CELL ASSEMBLY MACHINE TENDER, Office of Care Management Anabela Palacios RN,BSN, ACM Pager # [phone] e-DH reviewed. Patient discussed daily in interdisciplinary rounds. Patient has referral to [facility]. Spoke with sales marketing coordinator. OT asked for updated note. Teamfeels he is confused but redirectable and cooperative. Altered status may be from his pain management and HD. Endocrinology to review- if patient can manage his insulin pump independently than that would be acceptable. Spoke with Cari at [facility] - he has Medicaid spend down and he was due for renewal on June 30. Son sending bank statement to her - in the system it will be inactive until his spend down is met.Spoke with his sister and she is sending Cari the financial documents to activate. Confirmed with [facility] that they can accept with Medicare and [place]. Once [facility] gives approval will need ambulance transport. PICK REMOVER/Stewarding Supervisor remains available as needed for coordination of care and discharge planning. * Kris Hicks MD - 08/02/2019 11:47 PM EDT Brief event note Paged to bedside for patient being found in prayer position - unclear if this was a fall or not. On exam resting in bed in NAD. Unable (or unwilling?) to recall surrounding events. Denies any new pain or head pain. Oriented x3. No signs of new injury. Head atraumatic appearing. CT&L spine examined an unremarkable. Neuro exam non focal. Chart reviewed and no therapeutic anticoagulation ordered. Will monitor but no concern for high energy fall at this point. Do not feel imaging is needed at this point. Should behavior warrant sitter, will add as needed. Kris Hicks MD 08/02/2019 11:52 PM * Kendra Beckett RN - 08/02/2019 11:39 PM EDT Fall Event Note Maurice Rudolph [id number] 08/02/2019 Time of Fall: 2324 Was the fall witnessed No/Unobserved fall Patient's description of fall: I don't know Nursing staff description of fall: Bed alarm was going off, RESEARCH SOFTWARE ENGINEER walked in and found pt on his kneesnext to the bed. Anatomical point(s) of impact: knees Vital signs observations: BP 119/65, HR 116, 92% on 2L NC, temp 36.7 Neurological observations: Pt disoriented to time, very wifty, asking repeated questions Post-fall physical assessment--relevant findings: None Interventions: None Physician/Provider notified (name): Kris Hicks Patient support contact/guardian notified (as applicable): N/A * Sandhya August APRN - 08/02/2019 5:38 PM EDT Trauma Daily Progress Note ID/Mechanism of injury:59 y.o. Male admitted for fall, on 07/30/19 with the following injuries: Injury Intervention Follow-up BRAIN: Bilateral hemorrhagic cerebral contusions ?? mTBI Neurosurgery consulted: CTA carotids CT head stable ?? Keppra 500mg BID x7 days Neurosurgery sign off. The patient is appropriate for discharge from neurosurgical standpoint. Ok for qShift neuro checks. Ok for chemoprophylaxis. Please see final recommendations below. ? Restart ASA in 1 week. SBP<160. Remainder of care per Trauma Service. ?? Avoid overstimulation Follow-up will be scheduled in the Neurosurgical Clinic in 2 weeks. Follow-up imaging ordered: CT Head SPINE: C7 transverse process fx T1-T4 R transverse process fxs L1-L2 transverse process fxs ? Trauma clinic prn PULM: R occult pulmonary contusion Left lower lobe contusion acute vs. Chronic issue R 2nd rib fracture R 3rd rib fx at the costotransverse junction Question fracture of the R 1st rib head ?? 24 interval f/u CXR stable Trauma Clinic 10-14 days with repeat CXR EXTR: Right clavicle fx Right scapula fx Right comminuted humeral head fx Orthopedic Surgery: Non-op intervention -NWB RUE, sling for comfort Right clavicle and elbow films completed Orthopedic Clinic ABRASIONS: Multiple scattered abrasions ?? Local wound care ?? Trauma Clinic or Primary Chief Estimator ?? Problem List: - Acute pain - Impaired mobility - ESRD, on dialysis - Elevated troponin Procedures: Secondary Issues: Past Medical History: Diagnosis Date ??? Acute [...] dialysis, with long-term current use of insulin 24 Hour Events: HD today Reports of confusion, however patient able to have a lucid conversation. Current Medications: ??? heparin (Porcine) 5,000 Units Subcutaneous Q8H RICHELLE ??? levETIRAcetam 500 mg Oral 2 times per day Or ??? levETIRAcetam 500 mg Intravenous 2 times per day ??? sodium chloride 0.9 % (flush) 5 mL Intravenous BID ??? insulin lispro 1-6 Units Subcutaneous Q4H RICHELLE ??? acetaminophen 1,000 mg Oral Q6H RICHELLE ??? lidocaine 3 patch Transdermal Q24H And ??? lidocaine 3 patch Transdermal Q24H ??? polyethylene glycol (MIRALAX)oral powder 17 g Oral Daily ??? senna 8.6 mg Oral BID ??? insulin glargine 30 Units Subcutaneous Q24H ??? insulin lispro 0-15 Units Subcutaneous TID WC ??? sevelamer carbonate 800 mg Oral TID WC ??? gabapentin 300 mg Oral TID ??? tamsulosin 0.4 mg Oral Daily ??? losartan 50 mg Oral Daily ??? sertraline 50 mg Oral Daily ??? atorvastatin 10 mg Oral QPM ??? bumetanide 2 mg Oral BID ??? amLODIPine 5 mg Oral Daily ??? pantoprazole EC 40 mg Oral Q24H ??? melatonin 3 mg Oral Nightly Vital Signs: VITALS (24hr Range): Temp Temp: [36.4 ??C (97.5 ??F)-36.8 ??C (98.2 ??F)] , HR Heart Rate: [104] , BP BP: (117-151)/(70-82) , RR Resp: [16-20] , SpO2 SpO2: [92 %-100 %] I/O: Intake/Output Summary (Last 24 hours) at 08/02/2019 5885 Last data filed at 08/02/2019 1243 Gross per 24 hour Intake 340 ml Output 2000 ml Net -1660 ml Physical Exam: GENERAL: Awake and alert NAD, resting in bed SKIN: Multiple abrasions. HEENT: Normocephalic, atraumatic.MMM Right pupil irregular, minimally reactive (known severe diabetic retinopathy). Left pupil equal round reactive to light. Right eye blindness noted (known). NECK:No JVD. CHEST/LUNGS: Lungs are clear to auscultation bilaterally. CARDIAC: S1 and S2 heard clearly. Regular rhythm, normal rate. No murmurs, rubs, or gallops. 2+ radial and DP pulses bilaterally. ABDOMEN/GI: Abdomen is rounded, non-distended, non-tender. Dull to percussion. Normoactive bowel sounds appreciated. EXT: PANDA, RUE in sling. + CMS, LEFT fistula + bruit and thrill NEURO: Alert and oriented to person, place, and time. Sensation intact throughout. GCS: 15 Labs: Recent Labs 08/01/19 0625 07/31/19 0420 WBC 8.0 7.3 HGB 9.1* 9.2* HCT 28.2* 28.6* PLATELET 128* 128* Recent Labs 08/02/19 0642 08/01/19 0625 07/31/19 0420 NA 130* 130* 133* K 4.7 5.0 4.4 CL 88* 91* 92* CO2 26 25 27 BUN 50* 33* 48* CREATININE 7.35* 5.44* 6.13* GLUCOSE -- 180 110 CALCIUM 8.6 8.5 8.5 MAGNESIUM -- -- 0.92 Microbiology: None New Imaging: None in 24 hours Assessment: 59 y.o. male s/p fall ? syncope. 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 PLAN: NEURO: - Acute pain: Acetaminophen 1000mg q6hrs Lidoderm patches Dilaudid PO sliding scale (Dilaudid due to ESRD requiring dialysis) Home gabapentin 300mg TID neuropathic pain ?? Home sertraline re-started ?? SPINE: Trauma managing spine; see spine orders C7, T1-4, L1-2 TP fractures. ?? ACTIVITY: NWB RUE in sling ?? PULM: - IS hourly - Early/frequent mobilization - Pain control, aggressive pulmonary toilet, O2 to maintain >90 ?? CARDIAC: Chronic HTN Re-started amlodipine (hold parameters) Re-started losartan (hold parameters) ?? Chronic HLD Re-started home pravastatin ([facility] formulary equivalent atorvastatin 10) ?? Chronic Edema Re-started home bumetanide ?? Chronic CAD Holding ASA until neurosurgery f/u ?? Troponins continue to rise, Cardiology consult requested. ?? 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 RENAL: ESRD Requiring Hemodialysis Nephrology involved Staying with regular dialysis schedule T, , S Home renvela re-started ?? UA pending ?? HEME: - CBC stable; follow clinically relevant ?? ENDO: Insulin Dependent Type 2 Diabetes Mellitus Diabetes management consulted, appreciate insulin management recommendations Call DM team prior to discharge for pump restart ?? MSK: See injury box for MSK injury list Local wound care for abrasions ?? ID: - Follow for signs and symptoms of infection if +38.5C then newby culture and obtain WBC ?? CODE STATUS: - Full Code ?? LINES: - PIV ?? PROPHYLAXIS - DVT prophylaxis: SCD, Heparin TID - Tetanus vaccination status reviewed: Will administer prior to DC. ?? DISPO/Discharge Planning: -floor status -CRC working on d/c plan ?? CONSULTS: Orthopedic Surgery Neurosurgery ?? REFERRALS: TBD ?? FOLLOW UP: As above ?? Active issues to be addressed at discharge: Acute pain, impaired mobility ?? Incidental Findings: - Focal infrarenal abdominal aortic ectasia up to 2.4 cm. - Very mild nasopharyngeal asymmetry, may or may not be debris; consider direct visualization to exclude potential malignancy. Alternatively, depending on the keprp-ke-xppe, this can potentially be reevaluated on clinically-decided follow- up examination of the intracranial hyperdense foci. []? Incidental Findings Form Completed Sandhya August, TRUST CLERK 08/02/2019 Trauma pager [phone] * Lynda Harris RN - 08/02/2019 3:06 PM EDT Patient has bed offer for Acute rehab at [facility] when medically ready. Patient with intermittent confusion per bedside RN. DPBURTON, Adriana accepted bed offer. If patients confusion persists [facility] inquiring if DPOA needs to be activated or if additional w/u needed. Team to f/u to determine if necessary and if DPOA should be activated. Due to current public health concerns, I have verbally reviewed Medicare Discharge Rights with patient. Patient verbalizes understanding of right to appeal this discharge if feeling not medically ready. Offered a copy of this letter. Ambulance transportation is medically necessary at discharge related to confusion, 2-person assist.I have discussed Medicare/reimbursement guidelines for ambulance transport. Sister/DPOA, Adriana verbalize understanding of their potential financial obligation and agree with ambulance transport. Adriana believes patient may qualify for Medicaid and she is happy to assist as needed with process. Referral sent to [facility]/patient services to assist with secondary Medicaid. Lynda Harris RN CM Pager [phone] * Eliot Cohen MD - 08/02/2019 2:19 PM EDT Images from the original note were not included. Patient Name: Maurice Rudolph Patient Age: 59 y.o. Birthdate: 1960 Admit date: 07/29/2019 Attending Physician: Eliot Cohen MD Trauma Service - Progress Note Patient Name: Maurice Rudolph : [id number] MR#: [id number] 07/29/2019 Hospital Day 3 days Problem List: Active Hospital Problems Diagnosis ??? Closed fracture of right proximal humerus ??? Closed nondisplaced fracture of shaft of right clavicle ??? Right scapula fracture ??? Fall Resolved Hospital Problems No resolved problems to display. Active Non-Hospital Problems Diagnosis ??? Cellulitis ??? Pre-transplant evaluation for kidney [...] disease) ??? Proliferative diabetic retinopathy, both eyes Scheduled Meds: ??? heparin (Porcine) 5,000 Units Subcutaneous Q8H RICHELLE ??? levETIRAcetam 500 mg Oral 2 times per day Or ??? levETIRAcetam 500 mg Intravenous 2 times per day ??? sodium chloride 0.9 % (flush) 5 mL Intravenous BID ??? insulin lispro 1-6 Units Subcutaneous Q4H RICHELLE ??? acetaminophen 1,000 mg Oral Q6H RICHELLE ??? lidocaine 3 patch Transdermal Q24H And ??? lidocaine 3 patch Transdermal Q24H ??? polyethylene glycol (MIRALAX)oral powder 17 g Oral Daily ??? senna 8.6 mg Oral BID ??? insulin glargine 30 Units Subcutaneous Q24H ??? insulin lispro 0-15 Units Subcutaneous TID WC ??? sevelamer carbonate 800 mg Oral TID WC ??? gabapentin 300 mg Oral TID ??? tamsulosin 0.4 mg Oral Daily ??? losartan 50 mg Oral Daily ??? sertraline 50 mg Oral Daily ??? atorvastatin 10 mg Oral QPM ??? bumetanide 2 mg Oral BID ??? amLODIPine 5 mg Oral Daily ??? pantoprazole EC 40 mg Oral Q24H ??? melatonin 3 mg Oral Nightly Continuous Infusions: PRN Meds:.heparin (porcine), HYDROmorphone OR HYDROmorphone, labetalol AND hydrALAZINE, sodium chloride 0.9 % (flush), lidocaine, naloxone, Glucose 40% oral gel OR dextrose 10% OR glucagon (human recombinant) Events over the last 24 hrs: HD today Subjective: Awake, alert in no distress - mildly confused, knows he is at [facility] but it is 2020 Moderate abdominal distension - not tense Denies CP, pressure, squeezing, left arm pain No nausea or emesis Persistent right shoulder pain Scheduled Meds: ??? heparin (Porcine) 5,000 Units Subcutaneous Q8H RICHELLE ??? levETIRAcetam 500 mg Oral 2 times per day Or ??? levETIRAcetam 500 mg Intravenous 2 times per day ??? sodium chloride 0.9 % (flush) 5 mL Intravenous BID ??? insulin lispro 1-6 Units Subcutaneous Q4H RICHELLE ??? acetaminophen 1,000 mg Oral Q6H RICHELLE ??? lidocaine 3 patch Transdermal Q24H And ??? lidocaine 3 patch Transdermal Q24H ??? polyethylene glycol (MIRALAX)oral powder 17 g Oral Daily ??? senna 8.6 mg Oral BID ??? insulin glargine 30 Units Subcutaneous Q24H ??? insulin lispro 0-15 Units Subcutaneous TID WC ??? sevelamer carbonate 800 mg Oral TID WC ??? gabapentin 300 mg Oral TID ??? tamsulosin 0.4 mg Oral Daily ??? losartan 50 mg Oral Daily ??? sertraline 50 mg Oral Daily ??? atorvastatin 10 mg Oral QPM ??? bumetanide 2 mg Oral BID ??? amLODIPine 5 mg Oral Daily ??? pantoprazole EC 40 mg Oral Q24H ??? melatonin 3 mg Oral Nightly Continuous Infusions: PRN Meds:.heparin (porcine), HYDROmorphone OR HYDROmorphone, labetalol AND hydrALAZINE, sodium chloride 0.9 % (flush), lidocaine, naloxone, Glucose 40% oral gel OR dextrose 10% OR glucagon (human recombinant) No Known Allergies Objective: Physical Exam: Last Set of Vitals and range of vitals over past 24 hours: Last value Range last 24 hrs Temperature Temp: 36.8 ??C (98.2 ??F) Temp: [36.4 ??C (97.5 ??F)-36.8 ??C (98.2 ??F)] Heart Rate Heart Rate: (!) 104 Heart Rate: [104] Blood Pressure BP: 132/73 BP: (117-151)/(70-89) Respiratory Rate Resp: 18 Resp: [12-20] SpO2 SpO2: 95 % SpO2: [94 %-100 %] Physical Exam Awake and alert Follows commands with all extremities 5/5 strength bilat LE (ankle dorsi and plantar flexion) Equal hand grasp bilaterally, slightly weak LUE related to pain Reg pulse No dyspnea Abdomen protuberant, nontender Laboratory (Last 24 Hours): Recent Results (from the past 24 hour(s)) POCT Glucose Result Value Ref Range POC Glucose 224 (H) 65 - 199 mg/dL POCT Glucose Result Value Ref Range POC Glucose 183 65 - 199 mg/dL POCT Glucose Result Value Ref Range POC Glucose 181 65 - 199 mg/dL POCT Glucose Result Value Ref Range POC Glucose 132 65 - 199 mg/dL POCT Glucose Result Value Ref Range POC Glucose 155 65 - 199 mg/dL CMP w/fasting Glucose Result Value Ref Range Glucose Fasting 156 (H) 65 - 99 mg/dL BUN 50 (H) 10 - 20 mg/dL Creatinine 7.35 (H) 0.80 - 1.50 mg/dL Sodium 130 (L) 135 - 145 mmol/L Potassium 4.7 3.5 - 5.0 mmol/L Chloride 88 (L) 98 - 107 mmol/L CO2 26 22 - 31 mmol/L Anion Gap 16 (H) 5 - 15 mmol/L Calcium 8.6 8.5 - 10.5 mg/dL Total Protein 7.6 6.1 - 8.0 gm/dL Albumin 3.6 3.2 - 5.2 gm/dL AST 22 0 - 39 unit/L ALT 22 0 - 55 unit/L Alk Phos 86 40 - 130 unit/L Total Bilirubin 0.6 0.2 - 1.3 mg/dL eGFR 7 (L) >=60 mL/min/1.73 m?? eGFR 8 (L) >=60 mL/min/1.73 m?? POCT Glucose Result Value Ref Range POC Glucose 161 65 - 199 mg/dL Current Injuries - mTBI - B hemorrhagic cerebral contusions - R pulmonary contusion, occult - ?LLL contusion vs chronic/pre-existing issue - R 2nd rib fx - R clavicle fx - R scapula fx - R humerus fx - T1-T4 R transverse process fxs - L1-L2 L transverse process fxs - H/O prior CVA (R basal ganglia) Assessment/Plan: Neurologically stable with stable hemorrhagic contusion GCS 15 Keppra Serial neurologic examination No resp distress or desaturatoin Hemodynamically normal Rising troponin of unclear significance likely demand related ECHO with no WMA noted and normal cardiac function EF 60 % with no WMA No acute ischmic changes on recent ECG Cardiology evaluation Recommended ASA and statin On atorvastatin - hold ASA with cerebral contusions Outpatient cardiology referral HD today Ambulate with PT Sling for right scapular and humeral and clavicle fx Tentative plan for acute inpatient rehab tomorrow ELIOT COHEN MD 08/02/2019 * Eldon Bermudez MBBS - 08/02/2019 2:16 PM EDT HYPERTENSION/ NEPHROLOGY PROGRESS NOTE PATIENT: Maurice Rudolph : 1960 ID:- 59 year old man with ESRD on HD (T//TUE) at [facility] admitted with Right humeral, scapular, rib fracture and intracranial contusion after fall from down stairs. 24 hours events: Saw him during dialysis this morning denied chest pain and SOB . Hemodynamically stable. Intake is 340 cc,no over night issues PHYSICAL EXAM: Last value Range last 24 hrs Temperature Temp: 36.8 ??C (98.2 ??F) Temp: [36.4 ??C (97.5 ??F)-36.8 ??C (98.2 ??F)] Heart Rate Heart Rate: (!) 104 Heart Rate: [104] Blood Pressure BP: 132/73 BP: (117-151)/(70-89) Respiratory Rate Resp: 18 Resp: [12-20] SpO2 SpO2: 95 % SpO2: [94 %-100 %] Appearance - Alert, Comfortable. Skin - No exanthem. HEENT - Sclera white. Mucous membranes moist. Chest: . Lungs clear to ausculatation w/o wheezes/ rhonchi/ crackles. Heart - S1 and S2 clear w/o murmur, gallop, or rub. JVP not elevated. Abd - Soft. + BS. No bruit. Non tender. Ext - LUE AVF w/ good thrill/ bruit. Warm. No cyanosis. Trace dependent edema. Right arm on sling Neuro - No asterixis. STUDIES: Labs: CBC: Recent Labs 08/01/1962407/31/1941907/29/19 2359 WBC 8.0 7.3 11.3* HGB 9.1* 9.2* 10.9* PLATELET 128* 128* 135* Chemistry: Recent Labs 08/02/19 0642 08/01/1962407/31/19 04207/30/19 0610 NA 130* 130* 133* 136 K 4.7 5.0 4.4 4.5 CL 88* 91* 92* 94* CO2 26 25 27 29 BUN 50* 33* 48* 37* CREATININE 7.35* 5.44* 6.13* 4.89* GLUCOSE -- 180 110 233* Recent Labs 08/02/1942 08/01/1962407/31/1941907/30/19 0610 10/22/18 0944 10/21/18 0642 CALCIUM 8.6 8.5 8.5 8.6 < > -- 8.5 MAGNESIUM -- -- 0.92 0.81 -- -- -- PHOS -- -- -- 4.5 -- -- 5.8* PTH -- -- -- -- -- 131* -- < > = values in this interval not displayed. LFT's: Recent Labs 08/02/1942 08/01/1962410/19/18 1520 BILITOT 0.6 0.5 Not Perf BILIDIR -- -- Not Perf ALBUMIN 3.6 3.4 4.1 ALKPHOS 86 87 164* ALT 22 23 33 AST 22 29 69* IMPRESSION/ RECOMMENDATIONS: # ESRD on HD- T//Sat through LUE AVF admitted after fall. - Dialysis today for 4 hours, UF 1-3 kg as tolerated by hemodynamics, 3 K bath. Next dialysis on Tuesday . - strict input and output recording - Has anemia of ESRD , hemoglobin is below target range. We will give MICHEL during dialysis - Calcium is normal , check phosphorous , PTH and 25-oh vit D during next blood draw. Continue sevelamer - BP stable on amlodipine and losartan - Dose all meds for ESRD ?? Do not place PICC in this patient to preserve arm veins critical for permanent hemodialysis access . This is an evidence and guideline-based recommendation.Access for blood draws can be provided by a non tunnelled internal jugular catheter catheter placed by Interventional Radiology. (order internal jugular TLC). ?? If opiates are indicated, Morphine, codeine, oxycodone, accumulate and have toxic metabolites inCKD stage 5 and dialysis patients. Fentanyl, methadone, dilaudid, are preferable. Tramadol dose should be reduced by 50% ?? Thanks for letting us participate in the care of this patient. Seen and Discussed w/ Dr. Angelica Bermudez Nephrology Fellow [id number] Associated attestation - Katelynn Dominguez MD - 08/02/2019 2:43 PM EDT Nephrology Attending Physician Procedure note: Inpatient Hemodialysis ESRD Maurice Rudolph was seen and examined on hemodialysis and the data and chart were reviewed. Patient is obtunded but arousable. He complains of pain in the arm and right chest. Denies dyspnea,nausea, vomiting, constipation. Hemodynamically stable and tolerating the procedure with ultrafiltration. Dialysis access is functioning well. Anemia management and bone metabolism reviewed. Consider ordering blood draws at dialysis (phase of care when ordering dialysis) to avoid needle sticks. Do not place PICC in patients with stage 4/5 CKD or on dialysis to avoid damage to proximal veins crucial for future dialysis access. This is an evidence based recommendations supported by multiple national and international guidelines. Alternative outpatient IV access can be safely provided by tunneled IJ catheter or port placed by interventional radiology(order internal jugular TLC). If opiates required, morphine, codeine, and oxycodone, accumulate and have toxic metabolites in dialysis pateints. Fentanyl, methadone, dilaudidare preferable. Tramadol dose should be reduced by 50% We will continue intermittent dialysis and dialysis-related care. Thank you for involving us in thecare of this patient * Giovana Ray RN - 08/02/2019 1:21 PM EDT Pt back in room from HD. * Lynda Harris RN - 08/02/2019 11:02 AM EDT OFFICE OF CARE MANAGEMENT Stewarding Supervisor Follow-up Note Patient plan of care discussed with PICK REMOVER and assessment for continuing care and discharge needs. Trauma team paged and awaiting callback. [facility]: 3 INSURANCE: Payor: MEDICARE / Plan: MEDICARE PART A & B / Product Type: *No Product type* / SECONDARY INSURANCE: N/A DECISION MAKER: Full Code Received Patient not ready for DC today per (Provider report to PICK REMOVER) due to some confusion. Patient will likely be ready for DC tomorrow to inpatient rehab. Patient is an ideal acute rehab candidate. He is 59y.o s/o fall sustaining bilateral hemorrhagic cerebral contusions, C7 transverse process fx, T1-T4 R transverse process fxs and L1-L2 transverse process fxs. Also with R occult pulmonary contusion, left lower lobe contusion. R 2nd rib and R 3rd rib fx and ?fx of r 1st rib head. Also with r clavicleand R scapula and R comminuted humeral head fx. Patient also is on hemodialysis therefore will needAcute rehab with HD on site if possible. Prior to hospitalization patient was independent with cane. He lives with his son, Ze and his (who is w/c bound and has home care providers 3 times a day). ALDO has reviewed the DPOA/advanced directives and his sister, Adriana Lopez is the primary DPOA ([phone]). ALDO has updated the demographics with all the contacts in order. His sister Iva is the second DPOA ([phone]). His son, Ze ([phone]). Team advised to please call Adriana his primary DPOA with updates. Based on discussions with the multi-disciplinary healthcare team, the patient would benefit from ACUTE level of care at discharge. ?? I have spoke with the DPOA/sister Adriana to discuss discharge planning needs and educated them about their right to choose where referrals are placed. ?? I reviewed the different levels of rehab including SNF, swing, acute with Adriana. I have reviewed options with Acute rehabs with HD capabilities ?? The Adriana KRAFT has requested referrals to: 1. [facility] PHONE: [phone] FAX: [phone] Nurse to Nurse report: [phone] [address] [place] [address] ?? Expected date of discharge: 08/03/2019 Note routed to Spanish Literature Professor who will communicate referrals to facilities and provide any required information. Stewarding Supervisor to follow with team and family to assist with discharge needs when patient ready for discharge. Lynda Harris RN CM Pager [phone] * Giovana Ray RN - 08/02/2019 8:20 AM EDT Pt left floor for HD. * Eldon Bermudez MBBS - 08/01/2019 5:34 PM EDT HYPERTENSION/ NEPHROLOGY PROGRESS NOTE PATIENT: Maurice Rudolph : 1960 ID:- 59 year old man with ESRD on HD (T//TUE) at [facility] admitted with Right humeral, scapular, rib fracture and intracranial contusion after fall from down stairs. Subjective: he tolerated dialysis yesterday . Hemodynamically stable. Intake is 640 cc,no over night issues PHYSICAL EXAM: Last value Range last 24 hrs Temperature Temp: 36.8 ??C (98.2 ??F) Temp: [36.5 ??C (97.7 ??F)-36.9 ??C (98.4 ??F)] Heart Rate Heart Rate: 97 Heart Rate: -- Blood Pressure BP: 142/89 BP: (131-161)/(70-89) Respiratory Rate Resp: 12 Resp: [12-18] SpO2 SpO2: 97 % SpO2: [96 %-99 %] Appearance - Alert, Comfortable. Skin - No exanthem. HEENT - Sclera white. Mucous membranes moist. Chest: . Lungs clear to ausculatation w/o wheezes/ rhonchi/ crackles. Heart - S1 and S2 clear w/o murmur, gallop, or rub. JVP not elevated. Abd - Soft. + BS. No bruit. Non tender. Ext - LUE AVF w/ good thrill/ bruit. Warm. No cyanosis. Trace dependent edema. Right arm on sling Neuro - No asterixis. STUDIES: Labs: CBC: Recent Labs 08/01/1962407/31/1941907/29/19 2359 WBC 8.0 7.3 11.3* HGB 9.1* 9.2* 10.9* PLATELET 128* 128* 135* Chemistry: Recent Labs 08/01/1962407/31/1941907/30/19 0610 NA 130* 133* 136 K 5.0 4.4 4.5 CL 91* 92* 94* CO2 25 27 29 BUN 33* 48* 37* CREATININE 5.44* 6.13* 4.89* GLUCOSE 180 110 233* Recent Labs 08/01/1962407/31/1941907/30/19 0610 10/22/18 0944 10/21/18 0642 CALCIUM 8.5 8.5 8.6 < > -- 8.5 MAGNESIUM -- 0.92 0.81 -- -- -- PHOS -- -- 4.5 -- -- 5.8* PTH -- -- -- -- 131* -- < > = values in this interval not displayed. LFT's: Recent Labs 08/01/1962410/19/18 1520 BILITOT 0.5 Not Perf BILIDIR -- Not Perf ALBUMIN 3.4 4.1 ALKPHOS 87 164* ALT 23 33 AST 29 69* IMPRESSION/ RECOMMENDATIONS: # ESRD on HD- T//Sat through LUE AVF admitted after fall. - He had 2 liter UF yesterday. No clinical and metabolic indication of acute dialysis today . Next dialysis tomorrow - strict input and output recording - Has anemia of ESRD , hemoglobin is below target range. We will give MICHEL during dialysis - Calcium is normal , check phosphorous , PTH and 25-oh vit D during next blood draw. Continue sevelamer - BP stable on amlodipine and losartan - Dose all meds for ESRD Thanks for letting us participate in the care of this patient. Seen and Discussed w/ Dr. Angelica Bermudez Nephrology Fellow [phone] Associated attestation - Katelynn Dominguez MD - 08/01/2019 8:54 PM EDT Nephrology Attending Physician visit note Maurice Rudolph was seen and examined and discussed with the renal fellow Dr Bermudez My findings including history, examination and review of data as in the note above and I agree withthe recommendations detailed above. We will continue to follow. Thank you for involving us in the care of this patient * Sandhya August APRN - 08/01/2019 4:57 PM EDT Trauma Daily Progress Note ID/Mechanism of injury:59 y.o. Male admitted for fall, on 07/30/19 with the following injuries: Injury Intervention Follow-up BRAIN: Bilateral hemorrhagic cerebral contusions ?? mTBI Neurosurgery consulted: CTA carotids CT head stable ?? Keppra 500mg BID x7 days Neurosurgery sign off. The patient is appropriate for discharge from neurosurgical standpoint. Ok for qShift neuro checks. Ok for chemoprophylaxis. Please see final recommendations below. ? Restart ASA in 1 week. SBP<160. Remainder of care per Trauma Service. ?? Avoid overstimulation Follow-up will be scheduled in the Neurosurgical Clinic in 2 weeks. Follow-up imaging ordered: CT Head SPINE: C7 transverse process fx T1-T4 R transverse process fxs L1-L2 transverse process fxs ? Trauma clinic prn PULM: R occult pulmonary contusion Left lower lobe contusion acute vs. Chronic issue R 2nd rib fracture R 3rd rib fx at the costotransverse junction Question fracture of the R 1st rib head ?? 24 interval f/u CXR stable Trauma Clinic 10-14 days with repeat CXR EXTR: Right clavicle fx Right scapula fx Right comminuted humeral head fx Orthopedic Surgery: Non-op intervention -NWB RUE, sling for comfort Right clavicle and elbow films completed Orthopedic Clinic ABRASIONS: Multiple scattered abrasions ?? Local wound care ?? Trauma Clinic or Primary Chief Estimator ?? Problem List: - Acute pain - Impaired mobility - ESRD, on dialysis - Elevated troponin Procedures: Secondary Issues: Past Medical History: Diagnosis Date ??? 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 Anxiety ??? Arthritis ??? Cataract. Dense with synechiae. Right eye. 06/21/2012 ??? Closed fracture of right proximal humerus 07/30/2019 ??? Complication of anesthesia Had ?laryngospasm post extubation in OR 04/03/12, requrring brief reintubation. ??? Diabetes mellitus 1994 ??? Difficult intubation Two attempts (Mac3 and Bajwa 3 successful x 1 attempt. Suggest videolaryngoscope would be easier for future. ??? DM eyes ??? GERD (gastroesophageal reflux disease) no regular tx ??? Hyperlipidemia ??? Hypertension ??? Neuromuscular disorder ??? 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 heparin (Porcine) 5,000 Units Subcutaneous Q8H RICHELLE ??? levETIRAcetam 500 mg Oral 2 times per day Or ??? levETIRAcetam 500 mg Intravenous 2 times per day ??? sodium chloride 0.9 % (flush) 5 mL Intravenous BID ??? insulin lispro 1-6 Units Subcutaneous Q4H RICHELLE ??? acetaminophen 1,000 mg Oral Q6H RICHELLE ??? lidocaine 3 patch Transdermal Q24H And ??? lidocaine 3 patch Transdermal Q24H ??? polyethylene glycol (MIRALAX)oral powder 17 g Oral Daily ??? senna 8.6 mg Oral BID ??? insulin glargine 30 Units Subcutaneous Q24H ??? insulin lispro 0-15 Units Subcutaneous TID WC ??? sevelamer carbonate 800 mg Oral TID WC ??? gabapentin 300 mg Oral TID ??? tamsulosin 0.4 mg Oral Daily ??? losartan 50 mg Oral Daily ??? sertraline 50 mg Oral Daily ??? atorvastatin 10 mg Oral QPM ??? bumetanide 2 mg Oral BID ??? amLODIPine 5 mg Oral Daily ??? pantoprazole EC 40 mg Oral Q24H ??? melatonin 3 mg Oral Nightly Vital Signs: VITALS (24hr Range): Temp Temp: [36.5 ??C (97.7 ??F)-36.9 ??C (98.4 ??F)] , HR Heart Rate: --, BP BP: (131-161)/(70-89) , RR Resp: [12-18] , SpO2 SpO2: [96 %-99 %] I/O: Intake/Output Summary (Last 24 hours) at 08/01/2019 1657 Last data filed at 08/01/2019 0356 Gross per 24 hour Intake 640 ml Output -- Net 640 ml Physical Exam: GENERAL: Awake and alert NAD, resting in bed SKIN: Multiple abrasions. HEENT: Normocephalic, atraumatic.MMM Right pupil irregular, minimally reactive (known severe diabetic retinopathy). Left pupil equal round reactive to light. Right eye blindness noted (known). NECK:No JVD. CHEST/LUNGS: Lungs are clear to auscultation bilaterally. CARDIAC: S1 and S2 heard clearly. Regular rhythm, normal rate. No murmurs, rubs, or gallops. 2+ radial and DP pulses bilaterally. ABDOMEN/GI: Abdomen is rounded, non-distended, non-tender. Dull to percussion. Normoactive bowel sounds appreciated. EXT: PANDA, RUE in sling. + CMS, LEFT fistula + bruit and thrill NEURO: Alert and oriented to person, place, and time. Sensation intact throughout. GCS: 15 Labs: Recent Labs 08/01/1962407/31/1941907/29/19 2359 WBC 8.0 7.3 11.3* HGB 9.1* 9.2* 10.9* HCT 28.2* 28.6* 32.1* PLATELET 128* 128* 135* PT -- -- 12.1 INR -- -- 1.0 PTT -- -- 34 Recent Labs 08/01/1962407/31/1941907/30/19 0610 07/29/19 2359 NA 130* 133* 136 136 K 5.0 4.4 4.5 3.9 CL 91* 92* 94* 93* CO2 25 27 29 31 BUN 33* 48* 37* 34* CREATININE 5.44* 6.13* 4.89* 4.59* GLUCOSE 180 110 233* 159 CALCIUM 8.5 8.5 8.6 8.8 MAGNESIUM -- 0.92 0.81 -- PHOS -- -- 4.5 -- Microbiology: None New Imaging: None in 24 hours Assessment: 59 y.o. male s/p fall ? syncope. 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 PLAN: NEURO: - Acute pain: Acetaminophen 1000mg q6hrs Lidoderm patches Dilaudid PO sliding scale (Dilaudid due to ESRD requiring dialysis) Home gabapentin 300mg TID neuropathic pain ?? Home sertraline re-started ?? SPINE: Trauma managing spine; see spine orders C7, T1-4, L1-2 TP fractures. ?? ACTIVITY: NWB RUE in sling ?? PULM: - IS hourly - Early/frequent mobilization - Pain control, aggressive pulmonary toilet, O2 to maintain >90 ?? CARDIAC: Chronic HTN Re-started amlodipine (hold parameters) Re-started losartan (hold parameters) ?? Chronic HLD Re-started home pravastatin ( formulary equivalent atorvastatin 10) ?? Chronic Edema Re-started home bumetanide ?? Chronic CAD Holding ASA until neurosurgery f/u ?? Troponins continue to rise, Cardiology consult requested. ?? 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 RENAL: ESRD Requiring Hemodialysis Nephrology involved Staying with regular dialysis schedule , , Home renvela re-started ?? UA pending ?? HEME: - CBC stable; follow clinically relevant ?? ENDO: Insulin Dependent Type 2 Diabetes Mellitus Diabetes management consulted, appreciate insulin management recommendations Call DM team prior to discharge for pump restart ?? MSK: See injury box for MSK injury list Local wound care for abrasions ?? ID: - Follow for signs and symptoms of infection if +38.5C then newby culture and obtain WBC ?? CODE STATUS: - Full Code ?? LINES: - PIV ?? PROPHYLAXIS - DVT prophylaxis: SCD, Heparin TID - Tetanus vaccination status reviewed: Will administer prior to DC. ?? DISPO/Discharge Planning: -floor status -CRC working on d/c plan ?? CONSULTS: Orthopedic Surgery Neurosurgery ?? REFERRALS: TBD ?? FOLLOW UP: As above ?? Active issues to be addressed at discharge: Acute pain, impaired mobility ?? Incidental Findings: - Focal infrarenal abdominal aortic ectasia up to 2.4 cm. - Very mild nasopharyngeal asymmetry, may or may not be debris; consider direct visualization to exclude potential malignancy. Alternatively, depending on the [id number], this can potentially be reevaluated on clinically-decided follow- up examination of the intracranial hyperdense foci. []? Incidental Findings Form Completed Sandhya August APRN 08/01/2019 Trauma pager [phone] * Eliot Cohen MD - 08/01/2019 10:40 AM EDT Patient Name: Maurice Rudolph Patient Age: 59 y.o. Birthdate: 1960 Admit date: 07/29/2019 Attending Physician: Eliot Cohen MD Trauma Service - Progress Note Patient Name: Maurice Rudolph : [id number] MR#: [id number] 07/29/2019 Hospital Day 2 days Problem List: Active Hospital Problems Diagnosis ??? Closed fracture of right proximal humerus ??? Closed nondisplaced fracture of shaft of right clavicle ??? Right scapula fracture ??? Fall Resolved Hospital Problems No resolved problems to display. Active Non-Hospital Problems Diagnosis ??? Cellulitis ??? Pre-transplant evaluation for kidney [...] disease) ??? Proliferative diabetic retinopathy, both eyes Scheduled Meds: ??? heparin (Porcine) 5,000 Units Subcutaneous Q8H RICHELLE ??? levETIRAcetam 500 mg Oral 2 times per day Or ??? levETIRAcetam 500 mg Intravenous 2 times per day ??? sodium chloride 0.9 % (flush) 5 mL Intravenous BID ??? insulin lispro 1-6 Units Subcutaneous Q4H RICHELLE ??? acetaminophen 1,000 mg Oral Q6H RICHELLE ??? lidocaine 3 patch Transdermal Q24H And ??? lidocaine 3 patch Transdermal Q24H ??? polyethylene glycol (MIRALAX)oral powder 17 g Oral Daily ??? senna 8.6 mg Oral BID ??? insulin glargine 30 Units Subcutaneous Q24H ??? insulin lispro 0-15 Units Subcutaneous TID WC ??? sevelamer carbonate 800 mg Oral TID WC ??? gabapentin 300 mg Oral TID ??? tamsulosin 0.4 mg Oral Daily ??? losartan 50 mg Oral Daily ??? sertraline 50 mg Oral Daily ??? atorvastatin 10 mg Oral QPM ??? bumetanide 2 mg Oral BID ??? amLODIPine 5 mg Oral Daily ??? pantoprazole EC 40 mg Oral Q24H ??? melatonin 3 mg Oral Nightly Continuous Infusions: PRN Meds:.heparin (porcine), HYDROmorphone OR HYDROmorphone, labetalol AND hydrALAZINE, sodium chloride 0.9 % (flush), lidocaine, naloxone, Glucose 40% oral gel OR dextrose 10% OR glucagon (human recombinant) Events over the last 24 hrs: HD yesterday, rising troponin Subjective: Awake, alert in no distress Moderate abdominal distension Denies CP, pressure, squeezing, left arm or jaw pain, dyspnea No nausea or emesis Major complaint is right shoulder pain Scheduled Meds: ??? heparin (Porcine) 5,000 Units Subcutaneous Q8H RICHELLE ??? levETIRAcetam 500 mg Oral 2 times per day Or ??? levETIRAcetam 500 mg Intravenous 2 times per day ??? sodium chloride 0.9 % (flush) 5 mL Intravenous BID ??? insulin lispro 1-6 Units Subcutaneous Q4H RICHELLE ??? acetaminophen 1,000 mg Oral Q6H RICHELLE ??? lidocaine 3 patch Transdermal Q24H And ??? lidocaine 3 patch Transdermal Q24H ??? polyethylene glycol (MIRALAX)oral powder 17 g Oral Daily ??? senna 8.6 mg Oral BID ??? insulin glargine 30 Units Subcutaneous Q24H ??? insulin lispro 0-15 Units Subcutaneous TID WC ??? sevelamer carbonate 800 mg Oral TID WC ??? gabapentin 300 mg Oral TID ??? tamsulosin 0.4 mg Oral Daily ??? losartan 50 mg Oral Daily ??? sertraline 50 mg Oral Daily ??? atorvastatin 10 mg Oral QPM ??? bumetanide 2 mg Oral BID ??? amLODIPine 5 mg Oral Daily ??? pantoprazole EC 40 mg Oral Q24H ??? melatonin 3 mg Oral Nightly Continuous Infusions: PRN Meds:.heparin (porcine), HYDROmorphone OR HYDROmorphone, labetalol AND hydrALAZINE, sodium chloride 0.9 % (flush), lidocaine, naloxone, Glucose 40% oral gel OR dextrose 10% OR glucagon (human recombinant) No Known Allergies Objective: Physical Exam: Last Set of Vitals and range of vitals over past 24 hours: Last value Range last 24 hrs Temperature Temp: 36.7 ??C (98.1 ??F) Temp: [36.5 ??C (97.7 ??F)-37 ??C (98.6 ??F)] Heart Rate Heart Rate: 97 Heart Rate: -- Blood Pressure BP: 131/75 BP: (131-161)/(75-88) Respiratory Rate Resp: 16 Resp: [16-18] SpO2 SpO2: 96 % SpO2: [96 %-98 %] Physical Exam Awake and alert Follows commands with all extremities 5/5 strength bilat LE (ankle dorsi and plantar flexion) Reg pulse No dyspnea Abdomen protuberant, dull to percussion (no ascites on CT), nontender Laboratory (Last 24 Hours): Recent Results (from the past 24 hour(s)) POCT Glucose Result Value Ref Range POC Glucose 122 65 - 199 mg/dL Troponin Result Value Ref Range Troponin-T 0.10 (H) 0.00 - 0.00 ng/mL POCT Glucose Result Value Ref Range POC Glucose 166 65 - 199 mg/dL POCT Glucose Result Value Ref Range POC Glucose 178 65 - 199 mg/dL POCT Glucose Result Value Ref Range POC Glucose 175 65 - 199 mg/dL POCT Glucose Result Value Ref Range POC Glucose 130 65 - 199 mg/dL Comprehensive metabolic panel (non-fasting) Result Value Ref Range Glucose Lvl 180 65 - 199 mg/dL BUN 33 (H) 10 - 20 mg/dL Creatinine 5.44 (H) 0.80 - 1.50 mg/dL Sodium 130 (L) 135 - 145 mmol/L Potassium 5.0 3.5 - 5.0 mmol/L Chloride 91 (L) 98 - 107 mmol/L CO2 25 22 - 31 mmol/L Anion Gap 14 5 - 15 mmol/L Calcium 8.5 8.5 - 10.5 mg/dL Total Protein 7.4 6.1 - 8.0 gm/dL Albumin 3.4 3.2 - 5.2 gm/dL AST 29 0 - 39 unit/L ALT 23 0 - 55 unit/L Alk Phos 87 40 - 130 unit/L Total Bilirubin 0.5 0.2 - 1.3 mg/dL eGFR 11 (L) >=60 mL/min/1.73 m?? eGFR 12 (L) >=60 mL/min/1.73 m?? Troponin Result Value Ref Range Troponin-T 0.12 (H) 0.00 - 0.00 ng/mL Hemogram Result Value Ref Range WBC 8.0 4.0 - 9.5 x10(3)/mcL RBC 2.85 (L) 4.58 - 5.54 x10(6)/mcL Hemoglobin 9.1 (L) 13.7 - 16.5 gm/dL Hematocrit 28.2 (L) 40.5 - 48.5 % MCV 98.9 (H) 82.9 - 93.1 fL MCH 31.9 27.5 - 32.1 pg MCHC 32.3 32.0 - 35.7 gm/dL Platelets 128 (L) 145 - 357 x10(3)/mcL RDWSD 52.0 (H) 36.0 - 45.0 fL RDWCV 14.5 (H) 11.4 - 13.8 % MPV 10.1 7.6 - 12.9 fL nRBC % Auto 0.0 % nRBC Abs Auto 0.000 0.000 - 0.000 x10(3)/mcL Differential, Automated Result Value Ref Range Neutrophils % 79.8 % Neutr Abs (ANC) 6.35 (H) 1.70 - 6.10 x10(3)/mcL Lymphocytes % 7.2 % Lymphocytes Abs 0.6 (L) 0.9 - 3.2 x10(3)/mcL Monocytes % 9.8 % Monocyte Abs 0.8 0.3 - 0.9 x10(3)/mcL Eosinophils % 2.0 % Eosinophils Abs 0.2 0.0 - 0.4 x10(3)/mcL Basophils % 0.6 % Basophils Abs 0.0 0.0 - 0.1 x10(3)/mcL Immature Gran % 0.60 % Pura Gran Abs 0.05 (H) 0.00 - 0.04 x10(3)/mcL POCT Glucose Result Value Ref Range POC Glucose 188 65 - 199 mg/dL Current Injuries - mTBI - B hemorrhagic cerebral contusions - R pulmonary contusion, occult - ?LLL contusion vs chronic/pre-existing issue - R 2nd rib fx - R clavicle fx - R scapula fx - R humerus fx - T1-T4 R transverse process fxs - L1-L2 L transverse process fxs - H/O prior CVA (R basal ganglia) Assessment/Plan: Neurologically stable with stable hemorrhagic contusion GCS 15 Keppra Serial neurologic examination No resp distress or desaturatoin Hemodynamically normal Rising troponin of unclear significance likely demand related ECHO with no WMA noted and normal cardiac function EF 60 % with no WMA No acute ischmic changes on recent ECG Certainly has RF for CAD with diabetes and ESRD Will have cardiology evaluate but doubt any intervention needed Contnue HD Ambulate with PT Sling for right scapular and humeral and clavicle fx ELIOT COHEN MD 08/01/2019 * Katelynn Dominguez MD - 07/31/2019 2:26 PM EDT Nephrology Attending Physician Procedure note: Inpatient Hemodialysis ESRD Maurice Rudolph was seen and examined on hemodialysis and the data and chart were reviewed. Patient is alert, denies dyspnea. Endorse mishel R Arm and chest. Hemodynamically stable and tolerating the procedure with ultrafiltration. Dialysis access is functioning well. Anemia management and bone metabolism reviewed. ?? Consider ordering blood draws at dialysis (phase of care when ordering dialysis) to avoid needle sticks. ?? Do not place PICC in patients with stage 4/5 CKD or on dialysis to avoid damage to proximal veins crucial for future dialysis access. This is an evidence based recommendations supported by multiple national and international guidelines. Alternative outpatient IV access can be safely provided by tunneled IJ catheter or port placed by interventional radiology(order internal jugular TLC). ?? If opiates required, morphine, codeine, and oxycodone, accumulate and have toxic metabolites in dialysis pateints. Fentanyl, methadone, dilaudidare preferable. Tramadol dose should be reduced by 50% We will continue intermittent dialysis and dialysis-related care. Thank you for involving us in thecare of this patient * aSndhya August APRN - 07/31/2019 2:13 PM EDT Trauma Daily Progress Note ID/Mechanism of injury:59 y.o. Male admitted for fall, on 07/30/19 with the following injuries: Injury Intervention Follow-up BRAIN: Bilateral hemorrhagic cerebral contusions ?? mTBI Neurosurgery consulted: CTA carotids CT head stable ?? Keppra 500mg BID x7 days Neurosurgery sign off. The patient is appropriate for discharge from neurosurgical standpoint. Ok for qShift neuro checks. Ok for chemoprophylaxis. Please see final recommendations below. ? Restart ASA in 1 week. SBP<160. Remainder of care per Trauma Service. ?? Avoid overstimulation Follow-up will be scheduled in the Neurosurgical Clinic in 2 weeks. Follow-up imaging ordered: CT Head SPINE: C7 transverse process fx T1-T4 R transverse process fxs L1-L2 transverse process fxs ? Trauma clinic prn PULM: R occult pulmonary contusion Left lower lobe contusion acute vs. Chronic issue R 2nd rib fracture R 3rd rib fx at the costotransverse junction Question fracture of the R 1st rib head ?? 24 interval f/u CXR stable Trauma Clinic 10-14 days with repeat CXR EXTR: Right clavicle fx Right scapula fx Right comminuted humeral head fx Orthopedic Surgery: Non-op intervention -NWB RUE, sling for comfort Right clavicle and elbow films completed Orthopedic Clinic ABRASIONS: Multiple scattered abrasions ?? Local wound care ?? Trauma Clinic or Primary Chief Estimator ?? Problem List: - Acute pain - Impaired mobility - ESRD, on dialysis - Elevated troponin Procedures: Secondary Issues: Past Medical History: Diagnosis Date ??? Acute [...] dialysis, with long-term current use of insulin 24 Hour Events: NAEON Current Medications: ??? levETIRAcetam 500 mg Oral 2 times per day Or ??? levETIRAcetam 500 mg Intravenous 2 times per day ??? sodium chloride 0.9 % (flush) 5 mL Intravenous BID ??? insulin lispro 1-6 Units Subcutaneous Q4H RICHELLE ??? acetaminophen 1,000 mg Oral Q6H RICHELLE ??? lidocaine 3 patch Transdermal Q24H And ??? lidocaine 3 patch Transdermal Q24H ??? polyethylene glycol (MIRALAX)oral powder 17 g Oral Daily ??? senna 8.6 mg Oral BID ??? insulin glargine 30 Units Subcutaneous Q24H ??? insulin lispro 0-15 Units Subcutaneous TID WC ??? sevelamer carbonate 800 mg Oral TID WC ??? gabapentin 300 mg Oral TID ??? tamsulosin 0.4 mg Oral Daily ??? losartan 50 mg Oral Daily ??? sertraline 50 mg Oral Daily ??? atorvastatin 10 mg Oral QPM ??? bumetanide 2 mg Oral BID ??? amLODIPine 5 mg Oral Daily ??? pantoprazole EC 40 mg Oral Q24H ??? melatonin 3 mg Oral Nightly Vital Signs: VITALS (24hr Range): Temp Temp: [36.4 ??C (97.5 ??F)-37 ??C (98.6 ??F)] , HR Heart Rate: [97-102] , BP BP: (120-181)/(56-94) , RR Resp: [12-20] , SpO2 SpO2: [95 %-98 %] I/O: Intake/Output Summary (Last 24 hours) at 07/31/2019 1413 Last data filed at 07/31/2019 1216 Gross per 24 hour Intake 322 ml Output 2000 ml Net -1678 ml Physical Exam: GENERAL: Awake and alert NAD SKIN: Abrasion noted on the superior scalp, abrasions on bilateral anterior knees, bilateral anterior tibias. Right forearm abrasion. Bilateral forehead abrasions. Ecchymoses and abrasions noted on the posterior right proximal arm, edema noted right shoulder and arm throughout. HEENT: Normocephalic, atraumatic.MMM Right pupil irregular, minimally reactive (known severe diabetic retinopathy). Left pupil equal round reactive to light. Right eye blindness noted (known). NECK:No JVD. CHEST/LUNGS: Lungs are clear to auscultation bilaterally. CARDIAC: S1 and S2 heard clearly. Regular rhythm, normal rate. No murmurs, rubs, or gallops. 2+ radial and DP pulses bilaterally. ABDOMEN/GI: Abdomen is soft, non-distended, non-tender. Normoactive bowel sounds appreciated. EXT: PANDA NEURO: Alert and oriented to person, place, and time. Sensation intact throughout. GCS: 15 Labs: Recent Labs 07/31/19 0420 07/29/19 2359 WBC 7.3 11.3* HGB 9.2* 10.9* HCT 28.6* 32.1* PLATELET 128* 135* PT -- 12.1 INR -- 1.0 PTT -- 34 Recent Labs 07/31/19 0420 07/30/19 0610 07/29/19 2359 NA 133* 136 136 K 4.4 4.5 3.9 CL 92* 94* 93* CO2 27 29 31 BUN 48* 37* 34* CREATININE 6.13* 4.89* 4.59* GLUCOSE 110 233* 159 CALCIUM 8.5 8.6 8.8 MAGNESIUM 0.92 0.81 -- PHOS -- 4.5 -- Microbiology: None New Imaging: None in 24 hours Assessment: 59 y.o. male s/p fall ? syncope. 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 PLAN: NEURO: - Acute pain: Acetaminophen 1000mg q6hrs Lidoderm patches Dilaudid PO sliding scale (Dilaudid due to ESRD requiring dialysis) Home gabapentin 300mg TID neuropathic pain ?? Home sertraline re-started ?? SPINE: Trauma managing spine; see spine orders C7, T1-4, L1-2 TP fractures. ?? ACTIVITY: NWB RUE in sling ?? PULM: - IS hourly - Early/frequent mobilization - Pain control, aggressive pulmonary toilet, O2 to maintain >90 ?? CARDIAC: Chronic HTN Re-started amlodipine (hold parameters) Re-started losartan (hold parameters) ?? Chronic HLD Re-started home pravastatin ( formulary equivalent atorvastatin 10) ?? Chronic Edema Re-started home bumetanide ?? Chronic CAD Holding ASA until neurosurgery f/u ?? ?Syncope Trending troponins, EKG notable for PVCs Will obtain TTE while inpatient. CTA of carotids performed ?? 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 RENAL: ESRD Requiring Hemodialysis Nephrology involved Staying with regular dialysis schedule , , Home renvela re-started ?? UA pending ?? HEME: - CBC stable; follow clinically relevant ?? ENDO: Insulin Dependent Type 2 Diabetes Mellitus Diabetes management consulted, appreciate insulin management recommendations ?? MSK: See injury box for MSK injury list Local wound care for abrasions ?? ID: - Follow for signs and symptoms of infection if +38.5C then newby culture and obtain WBC ?? CODE STATUS: - Full Code ?? LINES: - PIV ?? PROPHYLAXIS - DVT prophylaxis: SCD, Heparin TID - Tetanus vaccination status reviewed: Will administer prior to DC. ?? DISPO/Discharge Planning: -floor status -CRC working on d/c plan ?? CONSULTS: Orthopedic Surgery Neurosurgery ?? REFERRALS: TBD ?? FOLLOW UP: As above ?? Active issues to be addressed at discharge: Acute pain, impaired mobility ?? Incidental Findings: - Focal infrarenal abdominal aortic ectasia up to 2.4 cm. - Very mild nasopharyngeal asymmetry, may or may not be debris; consider direct visualization to exclude potential malignancy. Alternatively, depending on the [id number], this can potentially be reevaluated on clinically-decided follow- up examination of the intracranial hyperdense foci. []? Incidental Findings Form Completed Sandhya August, TRUST CLERK 07/31/2019 Trauma pager [phone] * Vesta Ordonez RN - 07/31/2019 1:21 PM EDT This is resumption of care referral. Patient goes to Hemodialysis to [facility] in [place], [place] Address: [address] [place] [address], [place] [address] Current schedule: Tuesday,, Tuesday. RS please submit resumption of care referral with all supporting documentation. * Kimani Swain MD - 07/31/2019 8:58 AM EDT NEUROSURGERY PROGRESS NOTE ID: HD# 1 59 year old male s/p fall down stairs with LEFT frontal and RIGHT parietal contusion, RIGHT C7 TP fracture, RIGHT T1-T4 TP fx, LEFT L1-2 TP fracture, RIGHT clavicle fx, RIGHT humerus fx INTERVAL HX/ROS: -No acute events overnight -No complaints -Neurologically stable MEDICATIONS: Scheduled Meds: ??? heparin (porcine) 3,000 Units Intravenous Once in dialysis ??? levETIRAcetam 500 mg Oral 2 times per day Or ??? levETIRAcetam 500 mg Intravenous 2 times per day ??? sodium chloride 0.9 % (flush) 5 mL Intravenous BID ??? insulin lispro 1-6 Units Subcutaneous Q4H RICHELLE ??? acetaminophen 1,000 mg Oral Q6H RICHELLE ??? lidocaine 3 patch Transdermal Q24H And ??? lidocaine 3 patch Transdermal Q24H ??? polyethylene glycol (MIRALAX)oral powder 17 g Oral Daily ??? senna 8.6 mg Oral BID ??? insulin glargine 30 Units Subcutaneous Q24H ??? insulin lispro 0-15 Units Subcutaneous TID WC ??? sevelamer carbonate 800 mg Oral TID WC ??? gabapentin 300 mg Oral TID ??? tamsulosin 0.4 mg Oral Daily ??? losartan 50 mg Oral Daily ??? sertraline 50 mg Oral Daily ??? atorvastatin 10 mg Oral QPM ??? bumetanide 2 mg Oral BID ??? amLODIPine 5 mg Oral Daily ??? pantoprazole EC 40 mg Oral Q24H ??? melatonin 3 mg Oral Nightly Continuous Infusions: PRN Meds: heparin (porcine), epoetin [id number], labetalol AND hydrALAZINE, sodium chloride 0.9 % (flush), lidocaine, naloxone, Glucose 40% oral gel OR dextrose 10% OR glucagon (human recombinant), HYDROmorphone OR HYDROmorphone EXAM: Vitals: Patient Vitals for the past 24 hrs: Temp Pulse Resp BP SpO2 O2 Flow Rate (L/min) O2 Device 07/30/19 1212 -- (!) 108 18 (!) 144/93 99 % 1 L/min NC 07/30/19 1302 -- (!) 105 13 137/69 98 % -- -- 07/30/19 1315 36.5 ??C (97.7 ??F) -- -- -- -- -- -- 07/30/19 1400 -- (!) 106 13 146/84 98 % -- -- 07/30/19 1600 36.4 ??C (97.5 ??F) (!) 102 20 (!) 142/92 98 % -- -- 07/30/19 1900 36.5 ??C (97.7 ??F) -- -- 120/56 -- 2 L/min NC 07/30/19 2052 36.7 ??C (98.1 ??F) -- 12 181/88 98 % 2 L/min NC 07/30/19 2249 36.5 ??C (97.7 ??F) -- 16 (!) 167/94 98 % 2 L/min NC 07/31/19 0411 36.7 ??C (98.1 ??F) -- 16 (!) 164/94 97 % 2 L/min NC 07/31/19 0638 36.7 ??C (98.1 ??F) 97 16 162/79 98 % 2 L/min NC 07/31/19 0700 -- -- -- -- 96 % 2 L/min NC 07/31/19 0759 36.4 ??C (97.5 ??F) -- 17 167/85 95 % 2 L/min NC BMI: Weight: 103.4 kg (227 lb 15.3 oz) (07/30/19 0127) BMI (Calculated): 39.12 BMI Classification: Obese I/O: I/O last 3 completed shifts: In: 667 [P.O.:442; I.V.:225] Out: 0 Awake, A&Ox3 Pupils: LEFT 3mm reactive, RIGHT 2mm non-reactive EOMI Decreased visual acuity to limited bedside testing RIGHT > LEFT [baseline] No facial asymmetry, tongue midline Motor: LUE/LLE 5/5 RUE pain limited shoulder/elbow, sling in place. Wiggles fingers RLE 5/5 Decreased sensation to bilateral lower extremities [secondary to diabetic neuropathy, baseline], otherwise intact LABS: Recent Labs 07/31/19 0420 07/29/19 2359 WBC 7.3 11.3* HGB 9.2* 10.9* PLATELET 128* 135* Recent Labs 07/31/19 0420 07/30/19 0610 07/29/19 2359 NA 133* 136 136 K 4.4 4.5 3.9 CL 92* 94* 93* CO2 BUN 48* 37* 34* CREATININE 6.13* 4.89* 4.59* Recent Labs 07/29/19 2359 PT 12.1 INR 1.0 IMAGING: XR Cervical Spine 07/30/19: COMPARISON: Neck CT from 07/30/2019 ?? FINDINGS: C1-C6 adequately visualized. No spondylolisthesis. C3 anterior inferior endplate osteophyte. C5 anterior inferior osteophyte. Multilevel posterior facet sclerosis These findings are compatible with degenerative osteoarthritis. ? IMPRESSION Osteoarthritis XR Thoracic Spine 07/30/19: COMPARISON: None ?? FINDINGS: No spondylolisthesis, as visualized. As well as can be visualized, anterior endplate arthropathy, compatible with osteoarthritis. ?? IMPRESSION No spondylolisthesis, as visualized. As well as can be visualized, anterior endplate arthropathy, compatible with osteoarthritis. A/P: 59 year old male with PMH of ESRD on TIW HD, CABG 2014 on ASA, and diabetic retinopathy who iss/p fall down flight of stairs with the following injuries: 1. LEFT frontal contusion 2. RIGHT parietal contusion 3. RIGHT pulmonary contusion with small hemothorax 4. RIGHT 2nd rib fracture 5. Comminuted RIGHT humeral head fracture 6. RIGHT clavicle fracture 7. RIGHT C7 TP fracture 8. RIGHT scapula fracture 9. T1-T4 TP fx 10. L1-2 TP fx The patient continues to be neurologically stable by clinical exam, there is no indication for repeat imaging, and there is no indication for neurosurgical intervention at this time. We will sign off at this time, but will be available for any other questions or concerns. The patient is appropriate for discharge from neurosurgical standpoint. Ok for qShift neuro checks. Ok for chemoprophylaxis. Please see final recommendations below. Follow-up will be scheduled in the Neurosurgical Clinic in 2 weeks. Follow-up imaging ordered: CT Head Restart ASA in 1 week. SBP<160. Remainder of care per Trauma Service. PLEASE PAGE [phone] WITH QUESTIONS Active Hospital Problems Diagnosis ??? Closed fracture of right proximal humerus ??? Closed nondisplaced fracture of shaft of right clavicle ??? Right scapula fracture ??? Fall Resolved Hospital Problems No resolved problems to display. Active Non-Hospital Problems Diagnosis ??? Cellulitis ??? Pre-transplant evaluation for kidney [...] disease) ??? Proliferative diabetic retinopathy, both eyes Kimani Swain MD 07/31/2019 * Kendra Beckett RN - 07/31/2019 8:05 AM EDT Pt off to dialysis. BG checked, 148, covered with 1 unit of insulin. Neuro check stable, A&Ox4.Received order from TRUST CLERK that pt can be off tele for dialysis, order updated. safemaker called and updated about transfer. * Bibiana Venegas RN - 07/30/2019 8:45 PM EDT [facility] Patient A&O x 4, denies chest pain or SOB. Patient states their pain level is 4/10. Bed alarm in place for safety. Patient oriented to room, call MALAIKA medeiros. RN will monitor patient. Bibiana Venegas RN * Penny Conklin MD - 07/30/2019 5:20 PM EDT TRAUMA & ACUTE SURGICAL CARE SERVICE TERTIARY SURVEY ID/MECHANISM OF INJURY: Maurice Rudolph is a 59 y.o. Male s/p fall down stairs ?syncope HISTORY OF PRESENT ILLNESS: Maurice Rudolph is a 59 y.o. male presents to [facility] s/p fall. Description of events leading up to injury includes patient was walking up his stairs at home, lost control, and fell down 12 stairs. He states that the last thing he remembers before losing consciousness is the realization that he is falling. He was worked up with imaging at [facility] prior to transfer here. ?? Primary survey revealed: intact airway, equal breath sounds/respirations, present 2+ peripheral pulses with stable vital signs and no signs of bleeding, GCS 15 (6 - Follows simple motor commands, 5 -Alert and oriented, 4 - Opens eyes on own), and complete exposure. ?? Secondary survey is as follows: Traumatic Brain Injury - Small bilateral intraparenchymal cerebral hematomas ?? Pulmonary/Chest - Right pulmonary contusion with small hemothorax - LLL opacity - likely atelectasis versus contusion - Right 2nd rib fracture ?? Musculoskeletal - Comminuted right humeral head fracture - Right mid clavicle fracture, non-displaced - Right scapular spine fracture, non-displaced - L1, L2 transverse process fractures - T1-T4 transverse process fractures - As mentioned above, right 2nd rib fracture PMHx: Past Medical History: Diagnosis Date ??? Acute [...] dialysis, with long-term current use of insulin PSHx: Past Surgical History: Procedure Laterality Date ??? CATARACT EXTRACTION, EXTRACAPSULAR, W/ LENS INSERTION 11/29/12 OS - DMM ??? CATARACT REMOVAL 07/18/12 OD Swendris ??? PERIPHERAL IRIDOTOMY 04/06/2012 OD Swendris ??? PRO EXTRACAPSULAR CATARACT RMVL INSERTION IO LENS PROSTH CPLX WO ECP 07/18/2012 ??? PRO EXTRACAPSULAR CATARACT RMVL INSERTION IO LENS PROSTH W/O ECP 11/29/2012 CATARACT EXTRACTION, EXTRACAPSULAR, W/ LENS INSERTION performed by Erasmo Bajwa MD at [facility] OSC ? ? PRO REPAIR COMPLEX RETINA DETACH VITRECTOMY & MEMB PEEL 04/03/2012, 04/03/12 REPAIR COMPLEX RETINAL DETACHMENT, W/ VITRECTOMY, MEMBRANE PEELING performed by Matteo Diane MD at [facility] MAIN OR ? ? PRO REPAIR COMPLEX RETINA DETACH VITRECTOMY & MEMB PEEL 07/31/2012 REPAIR COMPLEX RETINAL DETACHMENT, W/ VITRECTOMY, MEMBRANE PEELING performed by Matteo Diane MD at [facility] MAIN OR ? ? PRO REPAIR COMPLEX RETINA DETACH VITRECTOMY & MEMB PEEL 01/08/2013 REPAIR COMPLEX RETINAL DETACHMENT, W/ VITRECTOMY, MEMBRANE PEELING performed by Matteo Diane MD at [facility] MAIN OR ??? PRO TX EXTENSIVE [...] YAG CAPSULOTOMY 11/15/2013 OS - Dr Bajwa HOME MEDICATIONS: Medications Prior to Admission Medication Sig Dispense Refill Last Dose ??? insulin aspart U-100 (NovoLOG) Solution Inject 76 Units subcutaneously continuous. daily via Vgo insulin pump. ICD 10 Code: E11.319 30 mL 11 ??? V-GO 40 Device Inject 76 Units subcutaneously daily. ICD 10 Code: E11.319 30 Device 5 ??? camphor-menthol (SARNA) Lotion Apply 1 each topically 3 times daily as needed for Itching (leftLE). 222 mL 0 ??? glucagon, Human Recombinant, 1 mg Recon Soln Use in case of emergency for low blood sugar 1 each 5 ??? blood sugar diagnostic strips Strip Use to check blood sugar 3 times daily 200 each 11 ??? aspirin 325 mg Tablet Take 325 mg by mouth daily. Taking ??? losartan (COZAAR) 50 mg Tablet Take 50 mg by mouth daily. Taking ??? loratadine (CLARITIN) 10 mg Tablet Take 10 mg by mouth daily as needed for Allergies. Taking ??? bumetanide (BUMEX) 1 mg Tablet Take 2 mg by mouth 2 times daily. Taking ??? tamsulosin (FLOMAX) 0.4 mg Capsule Take 0.4 mg by mouth daily. Taking ??? B Complex-Vitamin C-Folic Acid (NEPHROCAP) 1 mg Capsule Take 1 capsule by mouth daily. Taking ??? gabapentin (NEURONTIN) 300 mg capsule Take 300 mg by mouth 3 times daily. Taking ??? sertraline (ZOLOFT) 25 mg tablet Take 25 mg by mouth daily. Taking ??? pravastatin (PRAVACHOL) 40 mg Tablet Take 40 mg by mouth daily. Taking CURRENT MEDICATIONS: ??? [START ON 07/31/2019] levETIRAcetam (Keppra) tablet 500 mg OR [START ON 07/31/2019] levETIRAcetam (KEPPRA) 500 mg in sodium chloride 0.82% 100 mL ??? labetalol (NORMODYNE,TRANDATE) injection 10-20 mg AND hydrALAZINE (APRESOLINE) injection 10mg ??? sodium chloride 0.9 % (flush) flush 5 mL ??? sodium chloride 0.9 % (flush) flush 5-20 mL ??? lidocaine (XYLOCAINE) 10 mg/mL (1 %) injection 3 mg ??? naloxone (NARCAN) injection 0.2 mg ??? glucose (GLUTOSE) 40% oral gel OR dextrose 10% infusion OR glucagon (human recombinant)injection SolR 1 mg ??? POCT Fingerstick Glucose AND insulin lispro (HumaLOG) VIAL injection 1-6 Units ??? famotidine (Pepcid) tablet 20 mg OR famotidine (PEPCID) injection 20 mg ??? acetaminophen (Tylenol) tablet 1,000 mg ??? lidocaine (LIDODERM) 5 % patch 3 patch AND lidocaine (LIDODERM) patch REMOVAL ??? polyethylene glycol (Miralax) packet 17 g ??? senna (Senokot) tablet 8.6 mg ??? insulin glargine VIAL injection 30 Units ??? insulin lispro (HumaLOG) VIAL injection 0-15 Units ??? sevelamer carbonate (Renvela) tablet 800 mg ??? gabapentin (Neurontin) capsule 300 mg ??? tamsulosin (Flomax) capsule 0.4 mg ??? losartan (Cozaar) tablet 50 mg ??? sertraline (Zoloft) tablet 50 mg ??? atorvastatin (Lipitor) tablet 10 mg ??? bumetanide (Bumex) tablet 2 mg ??? HYDROmorphone (Dilaudid) tablet 2 mg OR HYDROmorphone (Dilaudid) tablet 4 mg ??? [START ON 07/31/2019] amLODIPine (Norvasc) tablet 5 mg labetalol AND hydrALAZINE, sodium chloride 0.9 % (flush), lidocaine, naloxone, Glucose 40% oralgel OR dextrose 10% OR glucagon (human recombinant), HYDROmorphone OR HYDROmorphone ALLERGIES: No Known Allergies FAMILY HISTORY: No known personal or familial coagulopathic disorders SOCIAL HISTORY: Alcohol: Denies Tobacco: Distantly former smoker Drug: Denies Employment: Disabled. Lives at home with his and helps to care for her. Son lives at home withthem as well. REVIEW OF SYSTEMS: complete 10 system ROS performed with pertinent findings below. PHYSICAL EXAM: VITALS: Last value Range last 24 hrs Temperature Temp: 36.4 ??C (97.5 ??F) Temp: [36.4 ??C (97.5 ??F)-36.8 ??C (98.2 ??F)] Heart Rate Heart Rate: (!) 105 Heart Rate: [101-113] Blood Pressure BP: 137/69 BP: (132-144)/(69-93) Respiratory Rate Resp: 13 Resp: [9-24] SpO2 SpO2: 98 % SpO2: [87 %-100 %] I/O last 3 completed shifts: In: 225 [I.V.:225] Out: - Body mass index is 39.13 kg/m??. GENERAL: Awake and alert in no apparent distress. SKIN: Abrasion noted on the superior scalp, abrasions on bilateral anterior knees, bilateral anterior tibias. Right forearm abrasion. Bilateral forehead abrasions. Ecchymoses and abrasions noted on the posterior right proximal arm, edema noted right shoulder and arm throughout. HEENT: Normocephalic, atraumatic. No periorbital or orbital ecchymosis/edema. Sclera white, conjunctiva non-injected. Right pupil irregular, minimally reactive (known severe diabetic retinopathy). Left pupil equal round reactive to light. Right eye blindness noted (known). EOMs intact. No otorrhea.No rhinorrhea, nasal bones appear symmetric and midline. No frontal or maxillary sinus tenderness. Oropharynx is non-bloody, no missing or chipped teeth, moist mucous membranes. NECK: Trachea held midline. No contusions, abrasions. No JVD. CHEST/LUNGS: No evidence of ecchymosis or edema on inspection. No chest wall tenderness. No evidence of respiratory distress or increased work of breathing. Lungs are clear to auscultation bilaterally. CARDIAC: S1 and S2 heard clearly. Regular rhythm, normal rate. No murmurs, rubs, or gallops. 2+ radial and DP pulses bilaterally. ABDOMEN/GI: Abdomen is soft, non-distended, non-tender. Normoactive bowel sounds appreciated. PELVIS: Stable to manipulation. Mild left hip pain. EXT: Upper extremities: Right shoulder ROM limited 2' to pain. Able to gently fire biceps and triceps limited 2' to pain. Axillary, median, and radial nerve distribution sensation intact on the right arm. 5/5 admission nurse coordinator strength.2+ radial pulse. Left upper extremity ROM and strength grossly intact. Lower extremities: Demonstrate full ROM. No bony or soft tissue tenderness. 5/5 strength with dorsiflexion and plantar flexion. Able to perform SLR bilaterally. NEURO: Alert and oriented to person, place, and time. Cranial nerves II - XII grossly intact. Sensation intact throughout. SPINE: No bony tenderness or step-offs appreciated of the cervical, thoracic, or lumbar spines. No paraspinal ecchymosis or edema. GCS: 15 LABORATORY: Recent Labs 07/29/19 2359 WBC 11.3* HGB 10.9* HCT 32.1* PLATELET 135* PT 12.1 INR 1.0 PTT 34 Recent Labs 07/30/19 0610 07/29/19 2359 NA 136 136 K 4.5 3.9 CL 94* 93* CO2 29 31 BUN 37* 34* CREATININE 4.89* 4.59* GLUCOSE 233* 159 CALCIUM 8.6 8.8 MAGNESIUM 0.81 -- PHOS 4.5 -- RADIOLOGY: Ct Head Wo Contrast (generic): 07/30/2019 FINDINGS: Right frontal and subinsular areas of hypoattenuation are similar to the prior. Exam is somewhat limited by motion. There is an area of relative hypoattenuation in the left inferior temporal lobe which may be artifactual. Postsurgical changes are present in the right globe. No intracranial hemorrhage identified. No new fracture. CTA: There is mild atherosclerotic plaque on the arch. Right carotid: Common carotid origin is normal. There is atherosclerotic plaque at the carotid bifurcation without ICA stenosis. The ICA is otherwise normal in caliber. Left carotid: There is mild plaquealong the course of the common carotid without stenosis. Calcified plaque is present bifurcation without ICA stenosis. The ICA is normal in caliber. Right vertebral artery: There is plaque at the origin with moderate narrowing. The cervical vertebral arteries otherwise normal in caliber. Left artery: Left vertebral artery is small throughout its course. The origin is normal. The left vertebral artery terminates primarily as PICA. Nonvascular findings: Right clavicle fracture is present. There is surrounding soft tissue swelling. 1. Somewhat limited head CT due to motion. No new hemorrhage identified. 2. No evidence of carotid or vertebral artery injury. Scattered atherosclerotic disease as above. Xr Cervical Spine 2 Or 3 Views07/30/2019 FINDINGS: C1-C6 adequately visualized. No spondylolisthesis. C3 anterior inferior endplate osteophyte. C5 anterior inferior osteophyte. Multilevel posterior facet sclerosis These findings are compatible with degenerative osteoarthritis. Osteoarthritis Xr Chest Pa & Lateral (generic): 07/30/2019 FINDINGS: Right lung is well-inflated and there is no focal consolidation. Left lung is well-inflated. Blunted left lateral and posterior costophrenic sulcus may indicate small effusion atelectasis or a combination. Enlarged cardio- pericardial silhouette is secondary to prominent epicardial fat pads as demonstrated on CT. Median sternotomy wires are present and there are left mediastinal surgicalclips. No pneumothorax. The known clavicle fracture is not well delineated, and the known right humeral fracture is not included in the [id number]. Known right second rib fracture is not visible. There is curvilinear density along the right apical and lateral chest wall that is similar to prior,most likely extrapleural blood. No distended loops of bowel. EKG leads overlie the patient and obscure the [id number]. 1. Small left pleural fluid collection versus atelectasis or both. 2. Small volume presumed extrapleural blood at the right apex and along the right lateral chest wall secondary to known right rib fracture which is not well visualized. Xr Thoracic Spine 2 View Including Swimmers View07/30/2019 FINDINGS: No spondylolisthesis, as visualized. As well as can be visualized, anterior endplate arthropathy, compatible with osteoarthritis. No spondylolisthesis, as visualized. As well as can be visualized, anterior endplate arthropathy, compatible with osteoarthritis. Ct Angiogram Carotids 07/30/2019 FINDINGS: Right frontal and subinsular areas of hypoattenuation are similar to the prior. Exam is somewhat limited by motion. There is an area of relative hypoattenuation in the left inferior temporal lobe which may be artifactual. Postsurgical changes are present in the right globe. No intracranial hemorrhage identified. No new fracture. CTA: There is mild atherosclerotic plaque on the arch. Right carotid: Common carotid origin is normal. There is atherosclerotic plaque at the carotid bifurcation without ICA stenosis. The ICA is otherwise normal in caliber. Left carotid: There is mild plaquealong the course of the common carotid without stenosis. Calcified plaque is present bifurcation without ICA stenosis. The ICA is normal in caliber. Right vertebral artery: There is plaque at the origin with moderate narrowing. The cervical vertebral arteries otherwise normal in caliber. Left artery: Left vertebral artery is small throughout its course. The origin is normal. The left vertebral artery terminates primarily as PICA. Nonvascular findings: Right clavicle fracture is present. There is surrounding soft tissue swelling. 1. Somewhat limited head CT due to motion. No new hemorrhage identified. 2. No evidence of carotid or vertebral artery injury. Scattered atherosclerotic disease as above. Request For [address] Chest Abdomen Pelvis 07/30/2019 FINDINGS: CHEST: Lungs/Pleura: Right posterior upper lobe mild dependent attenuation opacity with adjacent small heterogeneous effusion, most consistent with a contusion. Dependent consolidative opacity in the left lung base. Mediastinum/Lizeth: Unremarkable. Cardiovascular: Unremarkable. ABDOMEN/PELVIS: Liver: Unremarkable. Gallbladder: Unremarkable. Spleen: Unremarkable. Pancreas: Unremarkable. Adrenal Glands: Unremarkable. RIGHT Kidney: Unremarkable. LEFT Kidney: Duplicated collecting system. Urinary Bladder: Unremarkable. GI: Unremarkable. Mesentery/Peritoneum: Unremarkable. Lymphatic System: Unremarkable. Vasculature: Focal infrarenal abdominal aortic ectasia up to 2.4 cm. External Soft Tissues: Muscle edema/hematoma about the RIGHT shoulder, with small RIGHT axillary hematoma and surrounding edema. Nonspinal Osseous Structures: * Comminuted fracture of the right humerus proximally centered about the greater without convincing extension to the glenohumeral joint space. * Subtle focal nondisplaced fracture of the right scapular spine medially. * Nondisplaced comminuted fractures of the right mid clavicle. * Question fracture of the RIGHT first rib head. * Nondisplaced fracture of the right second rib posteriorly with comminuted fracture of the head at the costovertebral junction. * Nondisplaced fracture of the RIGHT third rib neck at the costotransverse junction. Thoracic spine: * Nondisplaced fracture of the T1 and T4 RIGHT transverse processes. * Comminuted fracture of the T2 and T3 RIGHT transverse processes. Lumbar spine: Nondisplaced fractures of the L1 and L2 LEFT transverse processes. 1. Dependent right upper lobe contusion with adjacent small hemothorax. 2. Small left lower lobe dependent streaky opacity could be additional contusion versus atelectasis, aspiration, or potentially pneumonia. 3. RIGHT axillary hematoma and edema. 4. Multiple concomitant fractures as detailed above in the respective Nonspinal, Thoracic, and Lumbar sections above. 5. Please note, potential visceral or vascular injury/pathology cannot be excluded in the absence of intravenous contrast. Request For 2nd Read Ct Head And Spine 07/30/2019 FINDINGS: HEAD: Nonspecific patchy bihemispheric white matter hypodensity may be sequela of chronicmicroangiopathy although other etiologies are not excluded. Right gangliocapsular lacune. LEFT frontal and posterior RIGHT pericallosal small hyperdense foci, and question additional punctate focus in the anterior LEFT frontal cortex superiorly. No significant mass effect appreciated. Polyp or mucous retention cyst within the RIGHT maxillary sinus. Scattered mucosal thickening within the paranasal sinuses. Included mastoid air cells appear well- aerated. Calvarium appears intact. Diffuse hyperattenuation within of the right globe which demonstrates mildly decreased volume, compatible with age-i ndeterminate globe injury with vitreous hemorrhage (less likely mass). Very mild asymmetry in the nasopharynx eccentric to the LEFT. CERVICAL SPINE: No evidence of acute traumatic malalignment appreciated. Nondisplaced fracture of the distal tip of the C7 RIGHT transverse process. Unremarkable prevertebral soft tissues. Multilevel degenerative changes. Atlantooccipital coalition. Minimal nasopharyngeal asymmetry. 1. Nonspecific scattered intracranial hyperdense foci; in the setting of trauma, small focal intraparenchymal hemorrhages cannot be excluded. Differential considerations include hyperdense lesions (such as cavernomas, hyperdense micrometastases, etc.); consider repeat examination, MRI barring contra indication, or comparison with any potential prior examinations (none on this PACS). 2. RIGHT orbital vitreous hemorrhage (less likely mass), indeterminate age. 3. Nondisplaced fracture of the distal tip of the C7 RIGHT transverse process. 4. Unexpected finding: Very mild nasopharyngeal asymmetry, may or may not be debris; consider direct visualization to exclude potential malignancy. Alternatively, depending on the [id number], thiscan potentially be reevaluated on clinically-decided follow-up examination of the intracranial hyperdense foci. 07/30/2019XR SHOULDER RIGHT (GENERIC), XR CLAVICLE RIGHT (GENERIC) CLINICAL Bones: 1. Right Humerus- Comminuted displaced proximal humeral fracture redemonstrated. No intra-articularno intraarticular extension. 3. Right clavicle-nondisplaced oblique mid clavicular fracture. The AC joint alignment and coracoclavicular interval are preserved. 4. Right second rib-displaced lateral fracture seen on the clavicle examination. AC Joint: There osteophytes. Normal AC joint alignmentent Glenohumeral joint: Small osteophytes. Normal alignment. Soft tissue: periarticular calcifications: None Xr Clavicle Right (generic) 07/30/2019 FINDINGS/IMPRESSION: Oblique nondisplaced comminuted fracture of the mid right clavicle; associatedsoft tissue swelling/hematoma. The AC joint alignment features maintained. Partially viewed fracture of the humerus proximally in the region of the greater tubercle. Xr Elbow 3 Views Right (generic)07/30/2019 FINDINGS/IMPRESSION: Soft tissue swelling about the elbow, more prominent medially where there may also be a hematoma. No acute fracture, dislocation, or joint effusion seen. Olecranon enthesophyte. Antecubital IV catheter is present. Result Date: 07/30/2019: XR CHEST ONE VIEW FINDINGS: Diffuse hazy opacity in the left mid and lower hemithorax. Mild hazy opacity in the rightupper hemithorax. The cardiac silhouette is obscured. Nonspecific pulmonary vascular prominence. Mildly displaced fracture of the right proximal humerus. Nondisplaced fracture of the right mid clavicle. Median sternotomy wires and cardiac surgical clips are present. 1. Diffuse hazy opacity of the left mid and lower hemithorax which could represent atelectasis, consolidation, contusion, effusion. 2. Mild hazy opacity in the right upper hemithorax which could also represent atelectasis or a contusion. 3. Mildly displaced fracture of the right proximal humerus and nondisplaced fracture of the right clavicle. ASSESSMENT/SUMMARY OF INJURIES: 59 y.o. male s/p fall ?syncope. Injuries include: Injury Intervention Follow-up BRAIN: Bilateral hemorrhagic cerebral contusions mTBI Neurosurgery consulted: CTA carotids CT head stable Q4hr neuro checks while inpatient Keppra 500mg BID x7 days SBP <160 SCDs OK to start SQ heparin 07/30 Hold daily ASA until repeat CT of head at 2 weeks Avoid overstimulation Neurosurgery Clinic 2 weeks with repeat head CT SPINE: C7 transverse process fx T1-T4 R transverse process fxs L1-L2 transverse process fxs Neurosurgery Spine consulted: Post-mobilization films completed F/u with neurosurg spine for further recommendations F-u with Spine PULM: R occult pulmonary contusion Left lower lobe contusion acute vs. Chronic issue R 2nd rib fracture R 3rd rib fx at the costotransverse junction Question fracture of the R 1st rib head 24 interval f/u CXR stable Consider CT contrast of chest to r/o great vessel injury (CTA carotids was performed) Trauma [id number] days with repeat CXR EXTR: Right clavicle fx Right scapula fx Right comminuted humeral head fx Orthopedic Surgery Consulted Non-op intervention -NWB RUE, sling for comfort Right clavicle and elbow films completed Orthopedic Clinic TBD ABRASIONS: Multiple scattered abrasions Local wound care Trauma Clinic or Primary Chief Estimator Injuries identified on Tertiary Survey: 1. 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) -Chronic Insulin dept T2DM -Chronic Anxiety/Depression -Chronic Edema -Chronic neuropathic pain -Chronic BPH PLAN: NEURO: - Acute pain: Acetaminophen 1000mg q6hrs Lidoderm patches Dilaudid PO sliding scale (Dilaudid due to ESRD requiring dialysis) Home gabapentin 300mg TID neuropathic pain Home sertraline re-started SPINE: Neurosurgery managing spine; see spine orders ACTIVITY: MARILU MITCHELL in sling PULM: - IS hourly - Early/frequent mobilization - Pain control, aggressive pulmonary toilet, O2 to maintain >90 CARDIAC: Chronic HTN Re-started amlodipine (hold parameters) Re-started losartan (hold parameters) Chronic HLD Re-started home pravastatin ( formulary equivalent atorvastatin 10) Chronic Edema Re-started home bumetanide Chronic CAD Holding ASA until neurosurgery f/u ?Syncope Trending troponins, EKG notable for PVCs Will obtain TTE while inpatient. 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 Per Neurosurgery OK tore-start DVT ppx 07/30 - Tetanus vaccination status reviewed: Will administer prior to DC. DISPO/Discharge Planning: -floor status -CRC working on d/c plan CONSULTS: - Consulting service: (please see notes) Orthopedic Surgery Neurosurgery REFERRALS: TBD FOLLOW UP: As above Active issues to be addressed at discharge: Acute pain, impaired mobility Incidental Findings: - Focal infrarenal abdominal aortic ectasia up to 2.4 cm. -Very mild nasopharyngeal asymmetry, may or may not be debris; consider direct visualization to exclude potential malignancy. Alternatively, depending on the [id number], this can potentially be reevaluated on clinically-decided follow- up examination of the intracranial hyperdense foci. [] Incidental Findings Form Completed HERVE Oscar 07/30/2019 Trauma pager [phone] Attending Addendum This patient was seen in conjunction with Chantale Ellis as part of a shared visit. 59 yo male s/p fall down stairs with the following injuries: Small bilateral IPH Right pulmonary contusion with small hemothorax LLL opacity - likely atelectasis versus contusion Right 2nd rib fracture Comminuted right humeral head fracture Right mid clavicle fracture, non-displaced Right scapular spine fracture, non-displaced L1, L2 transverse process fractures T1-T4 transverse process fractures Awake and alert Pain controlled Non labored breathing Hear reg Abdomen non distended May go to q4h neuro checks per Neurosurgery. PT/OT working with him and will make recommendations on dispo location. Max Conklin MD * Katelynn Dominguez MD - 07/30/2019 2:33 PM EDT Renal Attending Inpatient Consult We are asked to evaluate Maurice Rudolph regarding dialysis and ESRD-related care Maurice Rudolph was seen and examined and discussed with the renal fellow Dr Bermudez and the referring team the data and chart were reviewed. My findings including history, examination and review of data are accurately detailed in the referring not. In summary 59 year old man with ESRD on TIW HD at [facility] admitted with R humeral, scapular, rib fracture, intracerebral hematomata, hemothorax post accidental fall down stairs. Had full dialysis treatment without issues yesterday prior to the fall. Left upper extremity fistula with good thrill and bruit. Blood pressure 137/69, pulse (!) 105, temperature 36.5 ??C (97.7 ??F), temperature source Oral, resp. rate 13, height 162.6 cm (5' 4), weight 103.4 kg (227 lb 15.3 oz), SpO2 98 %. Appears comfortable. Alert and oriented Dialysis access: Left upper extremity fistula with good thrill and bruit No asterixis, jaundice No peripheral or sacral edema No JVD. HS S1 + S2 no RMG RRR Breath sounds vesicular throughout with no added sounds Abdomen soft, non-tender Skin intact, face, trunk, limbs Electrolytes Lab Results Component Value Date WBC 11.3 (H) 07/29/2019 Hemoglobin 10.9 (L) 07/29/2019 Hematocrit 32.1 (L) 07/29/2019 Platelets 135 (L) 07/29/2019 Recent Labs 07/30/19 0610 NA 136 K 4.5 CL 94* CO2 29 BUN 37* CREATININE 4.89* GLUCOSE 233* No clinical or metabolic indication for emergent dialysis at this time. No evidence volume overloadnot responsive to diuretics, acidosis or hyperkalemia not responsive to medical management, uremic encephalopathy,uremic pericarditis, or uremic bleeding. We will paln for next dialysis tomorrow ?? Do not place PICC in this patient to preserve arm veins critical for permanent hemodialysis access . This is an evidence and guideline-based recommendation.Access for blood draws can be provided by a non tunnelled internal jugular catheter catheter placed by Interventional Radiology. (order internal jugular TLC). ?? If opiates are indicated, Morphine, codeine, oxycodone, accumulate and have toxic metabolites inCKD stage 5 and dialysis patients. Fentanyl, methadone, dilaudid, are preferable. Tramadol dose should be reduced by 50% We will continue to follow. Thank you for involving us in the care of this patient * Kathy Gomez PA - 07/30/2019 7:11 AM EDT NEUROSURGERY PROGRESS NOTE ID: Maurice Rudolph is a 59yo M with PMHx CAD s/p CABG 2015 on ASA, ESRD, diabetic retinopathy with baseline blindness in RIGHT eye and decreased vision in LEFT eye who is transfer from OSH following a fall. Found to have: LEFT Frontal Contusion RIGHT Parietal Contusion RIGHT C7 TP Fx RIGHT T1-4 TP Fx LEFT L1-2 TP Fx RIGHT Clavicle & Humerus Fx HD# 0 INTERVAL HX: - MICHAEL OVN. Neurologically stable - CTH and CTA Neck this AM MEDICATIONS: Scheduled Meds: ??? levETIRAcetam 1,000 mg Oral Once Or ??? levETIRAcetam 1,000 mg Intravenous Once ??? [START ON 07/31/2019] levETIRAcetam 500 mg Oral 2 times per day Or ??? [START ON 07/31/2019] levETIRAcetam 500 mg Intravenous 2 times per day ??? sodium chloride 0.9 % (flush) 5 mL Intravenous BID ??? insulin lispro 1-6 Units Subcutaneous Q4H RICHELLE ??? famotidine 20 mg Oral Daily Or ??? famotidine 20 mg Intravenous Daily ??? acetaminophen 1,000 mg Oral Q6H RICHELLE ??? lidocaine 3 patch Transdermal Q24H And ??? lidocaine 3 patch Transdermal Q24H ??? polyethylene glycol (MIRALAX)oral powder 17 g Oral Daily ??? senna 8.6 mg Oral BID Continuous Infusions: PRN Meds: labetalol AND hydrALAZINE, sodium chloride 0.9 % (flush), lidocaine, naloxone, Glucose 40% oral gel OR dextrose 10% OR glucagon (human recombinant), oxyCODONE OR oxyCODONE EXAM: Vitals: Patient Vitals for the past 24 hrs: Temp Pulse Resp BP SpO2 O2 Flow Rate (L/min) O2 Device 07/29/192 -- -- -- (!) 146/111 -- -- -- 07/29/19 2353 -- (!) 109 23 -- 99 % -- -- 07/30/19 0000 -- (!) 103 18 (!) 141/107 99 % -- -- 07/30/19 0015 -- (!) 101 20 115/74 (!) 87 % -- -- 07/30/19 0030 -- -- 20 153/59 97 % -- -- 07/30/19 0045 -- (!) 106 14 138/59 100 % -- -- 07/30/19 0115 -- (!) 107 15 161/73 98 % -- -- 07/30/19126 36.5 ??C (97.7 ??F) (!) 107 15 -- 91 % -- -- 07/30/19 0200 -- (!) 108 10 -- 99 % 2 L/min NC 07/30/19 0224 -- (!) 109 9 (!) 134/106 98 % -- -- 07/30/19 0230 -- (!) 110 10 (!) 145/100 97 % -- -- 07/30/19 0245 -- (!) 110 10 (!) 166/105 99 % -- -- 07/30/19 0300 -- (!) 110 10 (!) 154/99 99 % -- -- 07/30/19 0330 -- (!) 109 15 132/84 100 % -- -- 07/30/19 0400 36.8 ??C (98.2 ??F) (!) 111 11 151/69 100 % 1 L/min NC 07/30/19629 36.6 ??C (97.9 ??F) (!) 109 24 144/77 99 % 1 L/min NC BMI: Weight: 103.4 kg (227 lb 15.3 oz) (07/30/19126) BMI (Calculated): 39.12 BMI Classification: Obese I/O: I/O last 3 completed shifts: In: 225 [I.V.:225] Out: - GEN: NAD NEURO: A&O x3 Speech fluent and appropriate. Naming and repetition intact. PERRL. EOMI. Visual manley full to confrontation. No facial asymmetry Tongue midline MOTOR: Follows commands all extremities RUE: Proximal limited by pain; Distal full strength LUE: Proximal limited by pain; Distal full strength RLE: 09/03 LLE: 09/03 LABS: Recent Labs 07/29/192358 WBC 11.3* HGB 10.9* PLATELET 135* Recent Labs 07/30/19 0610 07/29/19 2359 NA 136 136 K 4.5 3.9 CL 94* 93* CO2 29 31 BUN 37* 34* CREATININE 4.89* 4.59* Recent Labs 07/29/19 2359 PT 12.1 INR 1.0 IMAGING: CT Head & CTA Neck 07/29 IMPRESSION 1. Somewhat limited head CT due to motion. No new hemorrhage identified. 2. No evidence of carotid or vertebral artery injury. Scattered atherosclerotic disease as above. CT Head and C-Spine 07/28, Second Read IMPRESSION 1. Nonspecific scattered intracranial hyperdense foci; in the setting of trauma, small focal intraparenchymal hemorrhages cannot be excluded. Differential considerations include hyperdense lesions (such as cavernomas, hyperdense micrometastases, etc.); consider repeat examination, MRI barring contraindication, or comparison with any potential prior examinations (none on this PACS). 2. RIGHT orbital vitreous hemorrhage (less likely mass), indeterminate age. 3. Nondisplaced fracture of the distal tip of the C7 RIGHT transverse process. 4. Unexpected finding: Very mild nasopharyngeal asymmetry, may or may not be debris; consider direct visualization to exclude potential malignancy. Alternatively, depending on the [id number]-icad, this can potentially be reevaluated on clinically-decided follow-up examination of the intracranial hyperdense foci. CT C/A/P 07/28, Second Read IMPRESSION 1. Dependent right upper lobe contusion with adjacent small hemothorax. 2. Small left lower lobe dependent streaky opacity could be additional contusion versus atelectasis, aspiration, or potentially pneumonia. 3. RIGHT axillary hematoma and edema. 4. Multiple concomitant fractures as detailed above in the respective Nonspinal, Thoracic, and Lumbar sections above. (Thoracic spine: * Nondisplaced fracture of the T1 and T4 RIGHT transverse processes. * Comminuted fracture of the T2 and T3 RIGHT transverse processes. Lumbar spine: Nondisplaced fractures of the L1 and L2 LEFT transverse processes.) 5. Please note, potential visceral or vascular injury/pathology cannot be excluded in the absence of intravenous contrast. A/P: Maurice Gurrola Rudolph is a 59yo M with PMHx CAD s/p CABG 2015 on ASA, ESRD, diabetic retinopathy with baseline blindness in RIGHT eye and decreased vision in LEFT eye who is transfer from OSH following a fall. Found to have: LEFT Frontal Contusion, RIGHT Parietal Contusion, RIGHT C7 TP Fx, RIGHT T1-4 TPFx, LEFT L1-2 TP Fx, RIGHT Clavicle & Humerus Fx. No acute neurosurgically intervention needed.Remains neurologically stable this AM. - Neuro Checks: Q4hr while inpatient. - Post Mobility XR ordered - Seizure PPx: Keppra 500 mg BID x 7days - Goal SBP < 160 - DVT PPx: SCDs to bilateral LE's. OK to start SQ heparin on 07/31/19. - Plan to obtain CT Head in 2 weeks. If stable, patient ok to resume daily ASA. - Remainder of care per Trauma PLEASE PAGE [phone] WITH QUESTIONS Active Hospital Problems Diagnosis ??? Closed fracture of right proximal humerus ??? Closed nondisplaced fracture of shaft of right clavicle ??? Right scapula fracture ??? Fall Resolved Hospital Problems No resolved problems to display. Active Non-Hospital Problems Diagnosis ??? Cellulitis ??? Pre-transplant evaluation for kidney [...] disease) ??? Proliferative diabetic retinopathy, both eyes HERVE Davies 07/30/2019 documented in this encounter H&P Notes * Bharathi Hernandez MD - 07/30/2019 12:17 AM EDT TRAUMA & ACUTE SURGICAL CARE H&P Patient Name: Maurice Rudolph Level of Activation: Alert MR#: [id number] [x ]Scene Call or [ ]Hospital Transfer : [id number] CC/MECHANISM OF INJURY: 59 y.o. Male s/p fall, on 07/30/2019 HISTORY OF PRESENT ILLNESS: Maurice Rudolph is a 59 y.o. male presents to [facility] [place] [facility] s/p fall. Description of events leading up to injury includes patient was walking up his stairs at home, lost control, and fell down 12 stairs. He states that the last thing he remembers before losing consciousness is the realization that he is falling. He was worked up with imaging at [facility] prior to transfer here. Primary survey revealed: intact airway, equal breath sounds/respirations, present 2+ peripheral pulses with stable vital signs and no signs of bleeding, GCS 15 (6 - Follows simple motor commands, 5 -Alert and oriented, 4 - Opens eyes on own), and complete exposure. Secondary survey is as follows: PAST MEDICAL: Past Medical History: Diagnosis Date ??? Acute [...] dialysis, with long-term current use of insulin PAST SURGICAL HISTORY: Past Surgical History: Procedure Laterality Date ??? CATARACT EXTRACTION, EXTRACAPSULAR, W/ LENS INSERTION 11/29/12 OS - DMM ??? CATARACT REMOVAL 07/18/12 OD Swendris ??? PERIPHERAL IRIDOTOMY 04/06/2012 OD Swendris ??? PRO EXTRACAPSULAR CATARACT RMVL INSERTION IO LENS PROSTH CPLX WO ECP 07/18/2012 ??? PRO EXTRACAPSULAR CATARACT RMVL INSERTION IO LENS PROSTH W/O ECP 11/29/2012 CATARACT EXTRACTION, EXTRACAPSULAR, W/ LENS INSERTION performed by Erasmo Bajwa MD at [facility] OSC ? ? PRO REPAIR COMPLEX RETINA DETACH VITRECTOMY & MEMB PEEL 04/03/2012, 04/03/12 REPAIR COMPLEX RETINAL DETACHMENT, W/ VITRECTOMY, MEMBRANE PEELING performed by Matteo Diane MD at [facility] MAIN OR ? ? PRO REPAIR COMPLEX RETINA DETACH VITRECTOMY & MEMB PEEL 07/31/2012 REPAIR COMPLEX RETINAL DETACHMENT, W/ VITRECTOMY, MEMBRANE PEELING performed by Matteo Diane MD at [facility] MAIN OR ? ? PRO REPAIR COMPLEX RETINA DETACH VITRECTOMY & MEMB PEEL 01/08/2013 REPAIR COMPLEX RETINAL DETACHMENT, W/ VITRECTOMY, MEMBRANE PEELING performed by Matteo Diane MD at [facility] MAIN OR ??? PRO TX EXTENSIVE [...] YAG CAPSULOTOMY 11/15/2013 OS - Dr Bajwa ALLERGIES: No Known Allergies MEDICATIONS: No current facility-administered medications on file prior to encounter. Current Outpatient Medications on File Prior to Encounter Medication Sig Dispense Refill ??? insulin aspart U-100 (NovoLOG) Solution Inject 76 Units subcutaneously continuous. daily via Vgo insulin pump. ICD 10 Code: E11.319 30 mL 11 ??? V-GO 40 Device Inject 76 Units subcutaneously daily. ICD 10 Code: E11.319 30 Device 5 ??? camphor-menthol (SARNA) Lotion Apply 1 each topically 3 times daily as needed for Itching (leftLE). 222 mL 0 ??? glucagon, Human Recombinant, 1 mg Recon Soln Use in case of emergency for low blood sugar 1 each 5 ??? blood sugar diagnostic strips Strip Use to check blood sugar 3 times daily 200 each 11 ??? aspirin 325 mg Tablet Take 325 [...] Tablet Take 40 mg by mouth daily. FAMILY HISTORY: non-contributory in any family member SOCIAL HISTORY: Alcohol: none Tobacco: smoked 20 years; does not smoke now Drug: no history of illicit drug use REVIEW OF SYSTEMS: complete 10 system ROS performed with pertinent findings below. Pertinent items are noted in HPI. PHYSICAL EXAM: VITALS: Most Recent Vitals: 07/30/19 0115 BP: 161/73 Pulse: (!) 107 Resp: 15 SpO2: 98% GENERAL: alert, awake and no apparent distress HEAD: NC; right posterior scalp abrasion; b/l forehead abrasion FACE: Pupils: R pupil irregularly shaped and non-reactive (known blindness in that eye), L pupil reactive, 4mm; Tympanic Membranes: clear to visualization; Midface: no tenderness, no swelling, no contusions, no lacerations and no abrasions over entire face Oropharynx: nonbloody, moist mucous membranes, no lacerations, no malocclusion and no chipped or missing teeth NECK: no tenderness to palpation, trachea midline, no masses, no swelling, no contusions and no abrasions LUNG: equal, clear breath sounds bilaterally and no crepitus CARDIAC: Regular rate and rhythm or without murmur or extra heart sounds ABDOMEN/GI: mild distension, soft, non-tender, no abrasions and no contusions PELVIS: stable to AP and/or lateral compression RECTAL: deferred, no gross blood, + gluteal contraction EXTREMITIES: R shoulder pain and motor function limited by pain; right shoulder and arm swelling and ecchymosis; 5/5 bilateral admission nurse coordinator strength SPINE: no deformity, no stepoffs, no tenderness to palpation and no abrasions over cervical spine, thoracic spine and/or lumbar spine SKIN: bilateral knee abrasions; right dorsal forearm abrasion NEURO: Mental Status: awake and alert, oriented to time, date, person, place Cranial Nerves: CN II - XII intact Motor: normal 5/5 strength in all tested muscle groups except RUE (limited by pain) Sensory: no sensory deficits noted LABORATORY: Recent Results (from the past 24 hour(s)) Basic Metabolic Panel (non-fasting) Result Value Ref Range Glucose Lvl 159 65 - 199 mg/dL BUN 34 (H) 10 - 20 mg/dL Creatinine 4.59 (H) 0.80 - 1.50 mg/dL Sodium 136 135 - 145 mmol/L Potassium 3.9 3.5 - 5.0 mmol/L Chloride 93 (L) 98 - 107 mmol/L CO2 31 22 - 31 mmol/L Anion Gap 12 5 - 15 mmol/L Calcium 8.8 8.5 - 10.5 mg/dL eGFR 13 (L) >=60 mL/min/1.73 m?? eGFR 15 (L) >=60 mL/min/1.73 m?? Prothrombin Time Result Value Ref Range PT 12.1 9.4 - 12.5 sec INR 1.0 APTT Result Value Ref Range PTT 34 25 - 37 sec Ethanol Level Result Value Ref Range Ethanol Lvl <100 <=99 mg/L Hemogram Result Value Ref Range WBC 11.3 (H) 4.0 - 9.5 x10(3)/mcL RBC 3.37 (L) 4.58 - 5.54 x10(6)/mcL Hemoglobin 10.9 (L) 13.7 - 16.5 gm/dL Hematocrit 32.1 (L) 40.5 - 48.5 % MCV 95.3 (H) 82.9 - 93.1 fL MCH 32.3 (H) 27.5 - 32.1 pg MCHC 34.0 32.0 - 35.7 gm/dL Platelets 135 (L) 145 - 357 x10(3)/mcL RDWSD 47.7 (H) 36.0 - 45.0 fL RDWCV 13.9 (H) 11.4 - 13.8 % MPV 9.7 7.6 - 12.9 fL nRBC % Auto 0.0 % nRBC Abs Auto 0.000 0.000 - 0.000 x10(3)/mcL Differential, Automated Result Value Ref Range Neutrophils % 83.4 % Neutr Abs (ANC) 9.43 (H) 1.70 - 6.10 x10(3)/mcL Lymphocytes % 8.0 % Lymphocytes Abs 0.9 0.9 - 3.2 x10(3)/mcL Monocytes % 6.9 % Monocyte Abs 0.8 0.3 - 0.9 x10(3)/mcL Eosinophils % 0.7 % Eosinophils Abs 0.1 0.0 - 0.4 x10(3)/mcL Basophils % 0.3 % Basophils Abs 0.0 0.0 - 0.1 x10(3)/mcL Immature Gran % 0.70 % Pura Gran Abs 0.08 (H) 0.00 - 0.04 x10(3)/mcL Gold Tube HOLD Result Value Ref Range Gold Hold Sample in lab. ABO/Rh Typing Result Value Ref Range ABORh Type A Pos Antibody screen Result Value Ref Range Ab Screen Interp Negative Expires at 2359 on: 08/01/2019 ABORH Recheck Status Result Value Ref Range ABORH Type Recheck Completed Troponin Result Value Ref Range Troponin-T 0.07 (H) 0.00 - 0.00 ng/mL RADIOLOGY: FAST Scan - negative CXR - IMPRESSION 1. Diffuse hazy opacity of the left mid and lower hemithorax which could represent atelectasis, consolidation or contusion. 2. Mild hazy opacity in the right upper hemithorax which could also represent atelectasis or a contusion. 3. Mildly displaced fracture of the right proximal humerus and nondisplaced fracture of the right clavicle. XR Pelvis - no fracture or dislocation CT Head & C-spine - IMPRESSION 1. Small intraparenchymal hematomas in the left frontal and right parietal lobes. No mass effect. 2. Diffusely hyperattenuating right globe, most consistent with a trace hemorrhage. This is age indeterminate. 3. Old lacunar infarct of the right basal ganglia. CT C/A/P - IMPRESSION 1. Mild posterior right upper lobe contusion and small hemothorax. 2. Small left lower lobe dependent streaky opacity, likely atelectasis and/or consolidation. 3. Comminuted fracture of the right humeral head without definite involvement of the joint space. 4. Nondisplaced fractures of the right second rib, mid clavicle and right scapular spine. 5. Small right axillary hematoma measuring 2.9 cm. 6. No traumatic malalignment of the thoracic or lumbar spine. 7. Nondisplaced fractures of the left L1 and L2 transverse process. CT T&L Spine - Thoracic spine: * Nondisplaced fracture of the T1 and T4 RIGHT transverse processes. * Comminuted fracture of the T2 and T3 RIGHT transverse processes. ?? Lumbar spine: Nondisplaced fractures of the L1 and L2 LEFT transverse processes. XR Extremities- XR R arm and XR R shoulder showed displaced fracture of right humeral head (greatertuberosity); fracture of mid clavicle; and fracture of the supraspinous portion of the right scapula Procedures Performed: Intubation: No Farrell Cath: No Central Line: No Chest Tube: No Sutures: No Other: Assessment/Summary of Injuries: 59 y.o. male s/p fall. Injuries identified on primary and secondary survey include: Traumatic Brain Injury - Small bilateral intraparenchymal cerebral hematomas Pulmonary/Chest - Right pulmonary contusion with small hemothorax - LLL opacity - likely atelectasis versus contusion - Right 2nd rib fracture Musculoskeletal - Comminuted right humeral head fracture - Right mid clavicle fracture, non-displaced - Right scapular spine fracture, non-displaced - L1, L2 transverse process fractures - T1-T4 transverse process fractures - As mentioned above, right 2nd rib fracture Plan: Patient's labs were reviewed, and at this time he has no major electrolyte abnormalities. We will continue to monitor his fluid and electrolyte status closely with Q12h BMP, given his history of ESRD, on dialysis. ?? Admit to Trauma Surgery Service in fair condition, Dr. Dover, attending ?? NPO ?? IV Fluids: 50cc/h ?? Consulting Services and plans: Neurosurgery: -Close neurological observation, Q2H Neuro Checks -Imaging: RCT at 0400 -BP control, keep SBP<160 -Hold anticoagulation -Keppra fo seizure ppx -SCDs for DVT ppx -GI prophylaxis NSG also contacted after Radiology read was addended from L1-2 tp fx only to L1- 2, T1-4 tp fx. No intervention or additional precautions. Patient was non-tender in thoracic and lumbar region Orthopedics: - Activity-nonweightbearing right upper extremity in sling - DVT prophylaxis-per primary, recommend Lovenox - Antibiotics: None - Diet -n.p.o. - Imaging [id number] right clavicle, x-ray right elbow ?? Spine status:C-spine to be cleared ?? Pain control: Tylenol; dilaudid ?? DVT prophylaxis: SCD; hold chemoppx ?? GI prophylaxis: famotidine ?? Tertiary survey in AM ?? DISPO: Stepdown Bharathi Hernandez MD 07/30/19 1:28 AM Associated attestation - Aaron Dover MD - 07/30/2019 6:53 AM EDT This patient was personally seen and examined upon their arrival in the trauma bay. I agree with the assessment and plan as discussed. Diagnoses and therapy were explained and all questions were answered. - s/p fall down stairs, ?syncopal, 07/29/2019 - mTBI - B hemorrhagic cerebral contusions - R pulmonary contusion, occult - ?LLL contusion vs chronic/pre-existing issue - R 2nd rib fx - R clavicle fx - R scapula fx - R humerus fx - T1-T4 R transverse process fxs - L1-L2 L transverse process fxs - H/O prior CVA (R basal ganglia) Trauma admit. NS, spine, + ortho evals. Aaron Dover 07/30/2019 6:48 AM documented in this encounter ED Notes * Eliot Lujan MD - 07/30/2019 12:10 AM EDT ED Resident Note Maurice Rudolph is an 59 y.o. male who presents to the ED with: Chief Complaint Patient presents with ??? Trauma I saw this patient on 07/30/2019. History is from patient, chart review, EMS. HPI Maurice Rudolph is a 59 y.o. male with history of CAD, T2DM, ESRD on HD who presents to the Emergency Department as a trauma alert. Patient was walking down a wooden staircase earlier this evening when he states he tripped and fell down 12 stairs. Does not remember incident. Brought to OSH hemodynamically stable - trauma work-up notable for multiple small IPH, R clavicle, R scapula, R humeral head fx, fx 1st and 2nd ribs on R and L1 L2 transverse process fx. O2 sat at baseline and stable on transport to [facility] [place]. Met by trauma team and ED staff in ED as a trauma alert. Last dialysis yesterday. No f/c/cough/SOB. Is not on AC. PMH: Past Medical History: Diagnosis Date ??? Acute [...] dialysis, with long-term current use of insulin SocHx: Social History Socioeconomic History ??? Marital status: Spouse name: None ??? Number of children: None ??? Years of education: None ??? Highest education level: None Occupational History ??? Occupation: unemployed Social Needs ??? Financial resource strain: None ??? Food insecurity Worry: None Inability: None ??? Transportation needs Medical: None Non-medical: None Tobacco Use ??? Smoking status: Former Smoker ??? Smokeless tobacco: Never Used ??? Tobacco comment: quit in his 20's Substance and Sexual Activity ??? Alcohol use: No ??? Drug use: No ??? Sexual activity: None Comment: deferred Lifestyle ??? Physical activity Days per week: None Minutes per session: None ??? Stress: None Relationships ??? Social connections Talks on phone: None Gets together: None Attends [employer]ar[employer] service: None Active member of club or organization: None Attends meetings of clubs or organizations: None Relationship status: None ??? Intimate partner violence Fear of current or ex partner: None Emotionally abused: None Physically abused: None Forced sexual activity: None Other Topics Concern ??? None Social History Narrative ??? None Review of Systems: A 10 point review of systems was performed and was negative except as noted in the HPI. Physical Exam: Temp: [36.5 ??C (97.7 ??F)] Heart Rate: [101-109] Resp: [14-23] BP: (115-161)/(59-111) SpO2: [87 %-100 %] Heart Rate from SpO2: [101 bpm-109 bpm] General: AAOx4 HEENT: In c-collar. Abrasion to superior scalp. EOMI. Neck: In C-collar. No c-spine TTP. Cardiovascular: Fast rate, regular rhythm. Intact distal pulses in all 4 extremities Pulmonary: Decreased air movement in RUL Abdomen: soft, nondistended, no TTP, no rebound/guarding Skin: Multiple scattered abrasions Extremities: R shoulder is swollen and larger than L shoulder. ROM limited 2/2 pain. Neuro: No grossly obvious deficits appreciated. GCS 15. Psych: normal mood and thought pattern. Assessment and Plan: 59 y.o. male with history of CAD, T2DM, ESRD on HD presents to the Emergency Department as a traumaalert. Met in the trauma bay by ED staff and trauma staff. Tachycardic but BP normal on initial assessment, protecting airway, satting well on room air. Initial survey notable for injuries as mentioned above. Following our initial assessment patient was admitted to the trauma service for further management of his acute injuries and further observation. No further intervention required in the ED at this time. ED Course: - Patient seen under the supervision of the attending physician. - Medications, allergies, and past medical history reviewed. Recent Results (from the past 24 hour(s)) Basic Metabolic Panel (non-fasting) Result Value Ref Range Glucose Lvl 159 65 - 199 mg/dL BUN 34 (H) 10 - 20 mg/dL Creatinine 4.59 (H) 0.80 - 1.50 mg/dL Sodium 136 135 - 145 mmol/L Potassium 3.9 3.5 - 5.0 mmol/L Chloride 93 (L) 98 - 107 mmol/L CO2 31 22 - 31 mmol/L Anion Gap 12 5 - 15 mmol/L Calcium 8.8 8.5 - 10.5 mg/dL eGFR 13 (L) >=60 mL/min/1.73 m?? eGFR 15 (L) >=60 mL/min/1.73 m?? Prothrombin Time Result Value Ref Range PT 12.1 9.4 - 12.5 sec INR 1.0 APTT Result Value Ref Range PTT 34 25 - 37 sec Ethanol Level Result Value Ref Range Ethanol Lvl <100 <=99 mg/L L-Lactate2 Whole Blood Result Value Ref Range Lactate WB 1.2 0.5 - 2.2 mmol/L Hemogram Result Value Ref Range WBC 11.3 (H) 4.0 - 9.5 x10(3)/mcL RBC 3.37 (L) 4.58 - 5.54 x10(6)/mcL Hemoglobin 10.9 (L) 13.7 - 16.5 gm/dL Hematocrit 32.1 (L) 40.5 - 48.5 % MCV 95.3 (H) 82.9 - 93.1 fL MCH 32.3 (H) 27.5 - 32.1 pg MCHC 34.0 32.0 - 35.7 gm/dL Platelets 135 (L) 145 - 357 x10(3)/mcL RDWSD 47.7 (H) 36.0 - 45.0 fL RDWCV 13.9 (H) 11.4 - 13.8 % MPV 9.7 7.6 - 12.9 fL nRBC % Auto 0.0 % nRBC Abs Auto 0.000 0.000 - 0.000 x10(3)/mcL Differential, Automated Result Value Ref Range Neutrophils % 83.4 % Neutr Abs (ANC) 9.43 (H) 1.70 - 6.10 x10(3)/mcL Lymphocytes % 8.0 % Lymphocytes Abs 0.9 0.9 - 3.2 x10(3)/mcL Monocytes % 6.9 % Monocyte Abs 0.8 0.3 - 0.9 x10(3)/mcL Eosinophils % 0.7 % Eosinophils Abs 0.1 0.0 - 0.4 x10(3)/mcL Basophils % 0.3 % Basophils Abs 0.0 0.0 - 0.1 x10(3)/mcL Immature Gran % 0.70 % Pura Gran Abs 0.08 (H) 0.00 - 0.04 x10(3)/mcL Gold Tube HOLD Result Value Ref Range Gold Hold Sample in lab. ABO/Rh Typing Result Value Ref Range ABORh Type A Pos Antibody screen Result Value Ref Range Ab Screen Interp Negative Expires at 2359 on: 08/01/2019 ABORH Recheck Status Result Value Ref Range ABORH Type Recheck Completed Troponin Result Value Ref Range Troponin-T 0.07 (H) 0.00 - 0.00 ng/mL POCT Glucose Result Value Ref Range POC Glucose 175 65 - 199 mg/dL Imaging: - XR Elbow 3 Views Right (GENERIC) Preliminary Result No acute fracture or dislocation. Preliminary report signed by: Penny Bella at 07/30/2019 1:35 AM XR Clavicle Right (Generic) Preliminary Result Nondisplaced oblique fracture of the mid right clavicle. Preliminary report signed by: Penny Bella at 07/30/2019 1:37 AM Request For 2nd Read CT Chest Abdomen Pelvis Final Result 1. Dependent right upper lobe contusion with adjacent small hemothorax. 2. Small left lower lobe dependent streaky opacity could be additional contusion versus atelectasis, aspiration, or potentially pneumonia. 3. RIGHT axillary hematoma and edema. 4. Multiple concomitant fractures as detailed above in the respective Nonspinal, Thoracic, and Lumbar sections above. 5. Please note, potential visceral or vascular injury/pathology cannot be excluded in the absence of intravenous contrast. Preliminary report signed by: Penny Bella at 07/30/2019 1:03 AM I have personally reviewed the image(s) and the resident's interpretation and agree with the findings, Huang Hernandez at 07/30/2019 1:42 AM Thank you for letting us participate in the care of this patient. For questions regarding this report, please contact the number below. Request For 2nd Read CT Head And Spine Preliminary Result 1. Small intraparenchymal hematomas in the left frontal and right parietal lobes. No mass effect. 2. Diffusely hyperattenuating right globe, most consistent with a trace hemorrhage. This is age indeterminate. 3. Old lacunar infarct of the right basal ganglia. Preliminary report signed by: Penny Bella at 07/30/2019 1:15 AM XR Chest One View Final Result 1. Diffuse hazy opacity of the left mid and lower hemithorax which could represent atelectasis, consolidation, contusion, effusion. 2. Mild hazy opacity in the right upper hemithorax which could also represent atelectasis or a contusion. 3. Mildly displaced fracture of the right proximal humerus and nondisplaced fracture of the right clavicle. Preliminary report signed by: Penny Bella at 07/30/2019 12:28 AM I have personally reviewed the image(s) and the resident's interpretation and agree with the findings, Huang Hernandez at 07/30/2019 1:08 AM Thank you for letting us participate in the care of this patient. For questions regarding this report, please contact the number below. Film Library- Storage Only DX Upper Extremity Final Result Film Library- Storage Only DX Hip Final Result Film Library- Storage Only DX Shoulder Final Result CT Thoracic Spine Reconstruction (Results Pending) CT Lumbar Spine Reconstruction (Results Pending) CT Head wo Contrast (Generic) (Results Pending) Consults: - Trauma surgery as above Medications given: Medications fentaNYL (PF) 50mcg/mL injection (has no administration in time range) levETIRAcetam (Keppra) tablet 1,000 mg ( Oral See Alternative 07/30/1924) Or levETIRAcetam (KEPPRA) 1,000 mg in sodium chloride (ISO-OSM) 100 mL (1,000 mg Intravenous Not Given07/30/1924) levETIRAcetam (Keppra) tablet 500 mg (has no administration in time range) Or levETIRAcetam (KEPPRA) 500 mg in sodium chloride 0.82% 100 mL (has no administration in time range) labetalol (NORMODYNE,TRANDATE) injection 10-20 mg (has no administration in time range) And hydrALAZINE (APRESOLINE) injection 10 mg (has no administration in time range) sodium chloride 0.9 % (flush) flush 5 mL (has no administration in time range) sodium chloride 0.9 % (flush) flush 5-20 mL (has no administration in time range) lidocaine (XYLOCAINE) 10 mg/mL (1 %) injection 3 mg (has no administration in time range) naloxone (NARCAN) injection 0.2 mg (has no administration in time range) sodium chloride 0.9% infusion (has no administration in time range) acetaminophen (Tylenol) (32.02 mg/mL) oral liquid 650 mg (has no administration in time range) HYDROmorphone (DILAUDID) injection 0.3 mg (has no administration in time range) glucose (GLUTOSE) 40% oral gel (has no administration in time range) Or dextrose 10% infusion (has no administration in time range) Or glucagon (human recombinant) injection SolR 1 mg (has no administration in time range) insulin lispro (HumaLOG) VIAL injection 1-6 Units (has no administration in time range) famotidine (Pepcid) tablet 20 mg (has no administration in time range) Or famotidine (PEPCID) injection 20 mg (has no administration in time range) Patient admitted to trauma service. I performed the following procedure(s): adult trauma resuscitation. Eliot Lujan MD Resident 07/30/19 0152 Associated attestation - Kimani Kiser MD - 07/30/2019 4:23 AM EDT ED ATTENDING ATTESTATION The patient was seen in conjunction with Dr. Lujan, the resident physician. I have independently performed the adames portions of the history and physical exam. I have reviewed all diagnostic studies personally including labs, imaging studies and EKGs. I have discussed the details of the case with the resident and agree with the assessment and plan as described in the resident note above unless noted in my separate note. documented in this encounter Miscellaneous Notes * Plan of Care - Bibiana Venegas RN - 08/04/2019 4:52 AM EDT Problem: Patient Care Overview Goal: Plan of Care Review Outcome: Ongoing (Interventions Implemented as Appropriate) 08/03/1952508/03/192015 Plan of Care Review Progress no change -- Coping/Psychosocial Plan Of Care Reviewed With -- patient OUTCOME EVALUATION NOTE: OUTCOME SUMMARY: Patient intermittently restless overnight, more oriented as the night progressed. Patient now able to verbalize where he is and why is is in the hospital. Patient would often take O2 off, needing frequent reminders to leave O2 on. Patient maintaining adquate O2 sats on 2-3L NC. RUE sling intermittently in place for comfort. Patient oliguric, plan is for dialysis today. Patients pain adequately controlled, see MAR for medications given. Patient denies chest pain/shortness of breath. Will continue to monitor and help patient reach d/c goals. PLAN MOVING FORWARD: Pain control Reorientation Dialysis Mobilize D/c planning INDIVIDUALIZED FALL PREVENTION: Patient is currently a high risk to Fall. Bed alarm in place. Patient-specific fall risk factors per assessment: [current deficits]: Intermittent confusion, unsteadiness, IV Sites, Pain, Medications, Hospital Environment. Assistance [level of assistance required for transfers and ambulation]: X 2 assist, gait belt Supervision [direct monitoring required during toileting and ADLs]: Hands on, eyes on assistance with ADL's Surveillance [continuous indirect monitoring]: Masimo, Purposeful Rounding, Bedside Report Patient-specific fall prevention interventions for sensory deficits provided, if applicable: [X] Yes CPG GOAL OUTCOME EVALUATION: Goal: Fall Prevention-Safe Patient Handling Outcome: Ongoing (Interventions Implemented as Appropriate) 08/02/19201008/03/192015 Daily Care Interventions Self-Care Promotion independence encouraged;BADL personal routines maintained;BADL personal objectswithin reach;safe use of adaptive equipment encouraged -- Luna Fall Risk History of Falling -- 25 Secondary Diagnosis -- 15 Ambulatory Aids -- 0 Intravenous Therapy/Heparin/Saline Lock -- 20 Gait/Transferring -- 20 Mental Status -- 15 Score -- 95 OTHER Luna Fall Risk -- High Restraint Interventions Safety Promotion/Fall Prevention -- activity supervised;safety round/check completed Positioning Body Position -- supine, head elevated Activity Activity Type -- activity adjusted per tolerance Activity Assistance Provided -- assistance, 2 people Assistive Device Utilized -- gait belt Goal: Infection Control Outcome: Ongoing (Interventions Implemented as Appropriate) 08/03/192015 Safety Interventions Isolation Precautions standard precautions maintained Infection Prevention rest/sleep promoted;single patient room provided Coping Strategies Supportive Measures active listening utilized;verbalization of feelings encouraged Goal: Discharge Needs Assessment Outcome: Ongoing (Interventions Implemented as Appropriate) 07/30/19 0232 08/01/19 1731 Discharge Needs Assessment Concerns To Be Addressed basic needs concerns -- Readmission Within The Last 30 Days no previous admission in last 30 days -- Discharge Disposition -- still a patient Current Health Anticipated Changes Related to Illness inability to care for self -- Living Environment Transportation Available ambulance -- Goal: Interdisciplinary Rounds/Family Conf Outcome: Ongoing (Interventions Implemented as Appropriate) 08/03/19 0526 Interdisciplinary Rounds/Family Conf Participants nursing;patient Problem: Skin Integrity Impairment, Risk/Actual (Adult) Goal: Identify Related Risk Factors and Signs and Symptoms Related risk factors and signs and symptoms are identified upon initiation of Human Response Clinical Practice Guideline (CPG) Outcome: Ongoing (Interventions Implemented as Appropriate) 07/30/19 0232 Skin Integrity Impairment, Risk/Actual Skin Integrity Impairment, Risk/Actual: Related Risk Factors traumatic injury Goal: Skin Integrity/Wound Healing Patient will demonstrate the desired outcomes by discharge/transition of care. Outcome: Ongoing (Interventions Implemented as Appropriate) 08/03/19 0526 Skin Integrity Impairment, Risk/Actual (Adult) Skin Integrity/Wound Healing making progress toward outcome * Plan of Care - Aicha Santa RN - 08/03/2019 5:21 PM EDT Problem: Patient Care Overview Goal: Plan of Care Review Outcome: Ongoing (Interventions Implemented as Appropriate) 08/03/1952508/03/19 0945 Plan of Care Review Progress no change -- Coping/Psychosocial Plan Of Care Reviewed With -- patient OUTCOME EVALUATION NOTE: OUTCOME SUMMARY: Patient grew increasingly lethargic throughout shift; life safety called towards end of shift to assess. Right pupil remains fixed, left pupil 2mm and minimally reactive.Patient able to follow commands and intermittently required up to 5L O2 NC. Blood glucose monitored and treated appropriately; see MAR. Patient intermittently oriented. Team aware and came to assess at bedside; PRN narcotics discontinued. VSS. Will continue to monitor. PLAN MOVING FORWARD: Monitor neuro status Pain control Mobilize with PT/OT D/c planning INDIVIDUALIZED FALL PREVENTION: Patient-specific fall risk factors per assessment: [current deficits]: Hospital environment, generalized weakness, impaired cognition Assistance [level of assistance required for transfers and ambulation]: x2 assist to stand Supervision [direct monitoring required during toileting and ADLs]: moderate assistance with ADL's Surveillance [continuous indirect monitoring]: Masimo, safety checks, hourly rounds, Q4 vitals, NKE Patient-specific fall prevention interventions for sensory deficits provided, if applicable: N/A CPG GOAL OUTCOME EVALUATION: Goal: Fall Prevention-Safe Patient Handling Outcome: Ongoing (Interventions Implemented as Appropriate) 08/02/19201008/03/19 0945 Daily Care Interventions Self-Care Promotion independence encouraged;BADL personal routines maintained;BADL personal objectswithin reach;safe use of adaptive equipment encouraged -- Luna Fall Risk History of Falling -- 25 Secondary Diagnosis -- 15 Ambulatory Aids -- 0 Intravenous Therapy/Heparin/Saline Lock -- 20 Gait/Transferring -- 20 Mental Status -- 0 Score -- 80 OTHER Luna Fall Risk -- High Restraint Interventions Safety Promotion/Fall Prevention -- activity supervised;safety round/check completed;nonskid shoes/slippers when out of bed Positioning Body Position -- supine, head elevated Activity Activity Type -- activity adjusted per tolerance Activity Assistance Provided -- assistance, 2 people Assistive Device Utilized -- gait belt Goal: Infection Control Outcome: Ongoing (Interventions Implemented as Appropriate) 08/03/19 0945 Safety Interventions Isolation Precautions standard precautions maintained Infection Prevention single patient room provided;rest/sleep promoted;environmental surveillance performed Coping Strategies Supportive Measures active listening utilized Goal: Discharge Needs Assessment Outcome: Ongoing (Interventions Implemented as Appropriate) 07/30/19 0232 08/01/19 1731 Discharge Needs Assessment Concerns To Be Addressed basic needs concerns -- Readmission Within The Last 30 Days no previous admission in last 30 days -- Discharge Disposition -- still a patient Current Health Anticipated Changes Related to Illness inability to care for self -- Living Environment Transportation Available ambulance -- Goal: Interdisciplinary Rounds/Family Conf Outcome: Ongoing (Interventions Implemented as Appropriate) 08/03/19 0526 Interdisciplinary Rounds/Family Conf Participants nursing;patient Problem: Skin Integrity Impairment, Risk/Actual (Adult) Goal: Identify Related Risk Factors and Signs and Symptoms Related risk factors and signs and symptoms are identified upon initiation of Human Response Clinical Practice Guideline (CPG) Outcome: Ongoing (Interventions Implemented as Appropriate) 07/30/19 0232 Skin Integrity Impairment, Risk/Actual Skin Integrity Impairment, Risk/Actual: Related Risk Factors traumatic injury Goal: Skin Integrity/Wound Healing Patient will demonstrate the desired outcomes by discharge/transition of care. Outcome: Ongoing (Interventions Implemented as Appropriate) 08/03/19 0526 Skin Integrity Impairment, Risk/Actual (Adult) Skin Integrity/Wound Healing making progress toward outcome * Plan of Care - Liliana Ortiz PTA - 08/03/2019 9:44 AM EDT Physical Therapy Note Treatment Number PT: 3 Patient profile: Maurice Rudolph is a 59 y.o. right-handed male admitted on 07/29/[address] Aaron Dover MD forinjuries sustained s/p fall down 12 steps possibly due to syncope. Injuries include: ?? Traumatic Brain Injury - Small bilateral intraparenchymal cerebral hematomas ?? Pulmonary/Chest - Right pulmonary contusion with small hemothorax - LLL opacity - likely atelectasis versus contusion - Right 2nd rib fracture ?? Musculoskeletal - Comminuted right humeral head fracture - Right mid clavicle fracture, non-displaced - Right scapular spine fracture, non-displaced - L1, L2 transverse process fractures - T1-T4 transverse process fractures - As mentioned above, right 2nd rib fracture Interval History: Intermittent confusion, persistent R shoulder pain with arm in sling Social History: lives with his (who is wheelchair bound) and his 30-year old son; unemployed on disability Home set-up: 2-level home but can set up on 1st level Stairs: ramp entrance to home Baseline Mobility: independent ambulation; has a cane but doesn't usually use it Equipment at home: cane; ramp into home Fall history: not prior to this accident Precautions/Special Considerations: NWB R UE and sling when upright; SBP<160; difficult airway; monitor troponins (had slight increase on 2nd read: .06 to .07); fall risk; poor vision Activity Orders: as tolerated with above precautions Diet: carb control Mobility and Positioning Recommendations: ?? Pt. To utilize gait belt and LUE hand hold for transfers with nursing ?? NOT APPROPRIATE FOR AMBULATION. ?? Please encourage up to chair for meal times as able. Subjective: My shoulder hurts, I guess I broke it. Objective: Patient seen for physical therapy and demonstrated the following: Pain: increased pain in R shoulder but no # provided Vital Signs: HR 100s Spo2 92% on 2L ?? Supine>sit: HOB elevated, modA x 2, increased time to complete, use of bed features, cues andassist needed to bring LEs OOB and to bring trunk off bed. ?? Sitting balance: supervision-Blu; Min A posteriorly when brushing teeth with OT ?? Sit<>stand: RUE in sling, LUE hand hold, modA x 2 provided with gait belt and R knee blocked, multiple attempts to rise, fair eccentric control. Unable to take steps to chair after multiple attempts ?? Weight shifting performed with Mod A to shift weight to the R. ?? Standing balance: poor, retropulsion noted, only able to stand ~20s ?? Pt c/o dizziness and need to return to supine. Max A x 2 Sit> supine. ?? Pt boosted up in bed with Max A x 2 with knees bent up to assist ?? Brought pt into bed-chair position in bed, removed sling strap and positioned arm on pillows ?? Cognition; ?? Pt perseverative on pain during session ?? Intermittently able to state why he was here fell down stairs and that he broke the R shoulder ?? Kept eyes closed most of session unless prompted to open them ?? Pt left in chair position in bed, bed alarm on, call medeiros in reach following visit. Education: Pt educated on importance of mobility at this time Assessment: Maurice Rudolph was seen today for physical therapy treatment session for continuationof POC. Pt presented willing to participate in therapy however continues to be limited by cognitivestate and shoulder pain. Pt attempted to perform stand pivot to chair after performing weight shifting however was unable to move LEs. Based on pt's current level of function, pt would greatly benefit from rehab stay to increase functional strength and endurance. Pt will benefit from ongoing therapeutic interventions to achieve therapy goals. Discharge Recommendations: Based on the current findings, Anticipated Discharge Disposition: inpatient rehabilitation facilitywhen medically ready for hospital discharge. Consult Recommendations: No other consults recommended at this time. Equipment needs: TD Physical Therapy Goals: To be achieved by 08/07/19: ?? 1. Pt. to demonstrate knowledge of safety limitations and precautions and will appropriately request assistance for functional activities and to mobilize. 2. Pt. to demonstrate understanding of appropriate exercises. 3. Pt. to perform bed mobility independently. 4. Pt. to perform sit to stand transfers independently using unilateral device on L as needed. 5. Pt. to ambulate 150 feet independently using a unilateral device on L as needed. Family or caregiver to demonstrate understanding of therapeutic interventions to support the care of the patient. Plan: Therapy Frequency: 3-5 times/wk for as outlined in initial evaluation. Patient agrees with plan as stated. Time IN / OUT: 9:44-10:14 Total Evaluation Minutes, Physical Therapy: 30(TE-Fx 2) Liliana Ortiz PTA Pager: [phone] Physical Therapy Inpatient Rehabilitation Department * Plan of Care - Yodit Helton OTA - 08/03/2019 9:42 AM EDT Occupational Therapy Treatment Note Treatment Number OT: 2 Patient profile: Maurice Rudolph is a 59 y.o. male withPMHx CAD s/p CABG 2015 on ASA, ESRD, diabetic retinopathy with baseline blindness in RIGHT eye and decreased vision in LEFT eye, admitted on 07/29/2019 s/p fall downstairs. Pt was found to have: LEFT Frontal Contusion RIGHT Parietal Contusion RIGHT C7 TP Fx RIGHT T1-4 TP Fx LEFT L1-2 TP Fx RIGHT Clavicle & Humerus Fx Right 2nd rib fracture Right scapula fracture (nondisplaced) Social History: Patient lives in [place], [place] with his and son (30 years). Pt's is disabled (wheelchairbound, paralyzed on one side?). Pt is not comfortable with his son assisting with his personal intermediate Setup: 2 level home w/ flight of stairs to his bedroom, only working bathroom is on the 1st level. Pt's sleeps in a room on the first floor, but they do not sleep together. He does not havea recliner at home. Pt's bathroom is handicap accessible w/ a stall shower with a seat and grab bars. He has a grab bar to the right of his toilet (which would not assist him) DME: shower seat, grab bar, hi ranger operator, sockaid, shoe horn Baseline ADL/Mobility: Pt was independent w/ ADL's and IADL's (except driving). He uses a hi ranger operator, sockaid and shoe horn. His son can drive but they don't have a car. He uses public transportation orreceives rides from an organization. He does the cooking and cleaning. He manages his own medications. He ambulates without a device. He reports he watches TV a lot (when asked what he likes to do athome) and reports he can't stand very long because of dizziness and pain (pain from his left side/hip, chronic?). ?? Precautions/Special Considerations: fall, SBP<160, R UE NWB in sling, difficulty airway S: My arm hurts O: Patient seen for therapeutic activities and demonstrated the following: ?? Self-care & Functional Mobility ?? Dependent to manage sling on RUE ?? Mod A x2 supine>sit EOB, pt required assist to bring BLE OOB, grabbed therapist hand to bringUB off bed, increased time with HOB elevated ?? Pt with fair sitting balance EOB, min posterior support with dynamic balance ?? Pt able to grasp oral care swab with LUE to preform oral care while seated EOB ?? Preformed sit>stand with mod Ax2, gait belt, MACHINE CASTINGS PLASTERER, pt unable to advance feet today, with co pain in RUE ?? Max/dependent x2 sit>supine ?? Max A x2 boost up in bed, pt able to bend knees to assist ?? Cognition: ?? Behavior / Mood: alert, cooperative and confused ?? Alert and oriented to: person and place ?? Follows commands: 1 step, requires increased time and requires repetition ?? Attention: distractible ?? Safety awareness: impulsive and mild impairment ?? Pleasantly confused, able to follow simple directions with consistent cueing ?? Vision:pt reports blindness in R eye ?? Endurance: Limited activity tolerance ?? Vitals: ~92 on 2L nc Pain: co pain in R shoulder, did not rate stated High Education: Pt/family/caregiver education ongoing regarding: Role of occupational therapy/rehabilitation. Staff Communication: Patient status, treatment, and mobility recommendations discussed with nursing/other staff. ASSESSMENT: Pt seen for continuation of POC. Pt received in bed sleepy but agreeable to work with therapy, session in conjunction with PT. Pt pleasantly confused, able to follow simple directions andbe reoriented, able to participate in EOB ADL then sit<>Stand from bed. Pain appeared to be limiting factor in mobility today, pt had been premedicated for pain prior to session. Pt will benefit from ongoing therapeutic interventions to achieve pt's and therapy goals Anticipated Discharge Disposition: inpatient rehabilitation facility Equipment Recommendations: TBD Other Recommendations: ?? transfer to recliner chair as appropriate with 2 assist and gait belt w/ L UE sling, ambulate astolerated w/ same ?? Encourage participation in ADL's by providing set up A on tray table and physical assist only asneeded. Goals: To be achieved within 1 week, by 08/06/19: 1. Patient will be min A for LB dressing w/ AE as needed. 2. Patient will be min A for toileting w/ AE as needed. 3. Patient will complete grooming tasks w/ one-handed techniques and dycem/environmental modifications 4. Patient will don his sling w/ min A and be mod A for UB dressing. Goals on going Therapy Frequency: 2-3 times/wk Total Evaluation Minutes, Occupational Therapy: 30 2x schm Pager: [phone] JEOVANNY Peterson Occupational Therapy Rehabilitation Department * Plan of Care - Kendra Beckett RN - 08/03/2019 5:32 AM EDT Problem: Patient Care Overview Goal: Plan of Care Review Outcome: Ongoing (Interventions Implemented as Appropriate) 08/03/19 0526 Plan of Care Review Progress no change Coping/Psychosocial Plan Of Care Reviewed With patient OUTCOME EVALUATION NOTE: OUTCOME SUMMARY: Patient progressing towards d/c goals slowly at this time. Patients pain adequately controlled, seeMAR for medications given. Patient did not sleep much overnight, was restless and calling frequently. Intermittently disoriented to time or place. Asking the same questions frequently. Had apparent fall this shift, see previous note. R arm remains bruised and swollen, patient's main source of pain.VSS on 2L NC. Pt has not voided, is oliguric d/t hemodialysis. BGs well controlled, see MAR for insulin given. Planning to d/c to rehab today. Will continue to monitor and help patient reach d/c goals. PLAN MOVING FORWARD: Pain control Mobilize Reorientation D/c planning INDIVIDUALIZED FALL PREVENTION: Patient is currently a high risk to Fall. Patient educated on bed/chair alarm, demonstrates proper use of call medeiros and verbalizes understanding of fall preventions implemented. Patient-specific fall risk factors per assessment: [current deficits]: Confusion, Pain, Medications, Hospital Environment. Assistance [level of assistance required for transfers and ambulation]: x2 assist with gait belt Supervision [direct monitoring required during toileting and ADLs]: Hands-on assistance with ADL's Surveillance [continuous indirect monitoring]: Kellieo, Purposeful Rounding, Bedside Report Patient-specific fall prevention interventions for sensory deficits provided, if applicable: [X] N/A CPG GOAL OUTCOME EVALUATION: Goal: Fall Prevention-Safe Patient Handling Outcome: Ongoing (Interventions Implemented as Appropriate) 08/02/192010 Daily Care Interventions Self-Care Promotion independence encouraged;BADL personal routines maintained;BADL personal objectswithin reach;safe use of adaptive equipment encouraged Luna Fall Risk History of Falling 25 Secondary Diagnosis 15 Ambulatory Aids 0 Intravenous Therapy/Heparin/Saline Lock 20 Gait/Transferring 20 Mental Status 0 Score 80 OTHER Luna Fall Risk High Restraint Interventions Safety Promotion/Fall Prevention activity supervised;fall prevention program maintained;nonskid shoes/slippers when out of bed;safety round/check completed Positioning Body Position side-lying, left Activity Activity Type activity adjusted per tolerance Activity Assistance Provided assistance, 2 people Assistive Device Utilized gait belt Goal: Infection Control Outcome: Ongoing (Interventions Implemented as Appropriate) 08/02/192010 Safety Interventions Isolation Precautions standard precautions maintained Infection Prevention barrier precautions utilized;rest/sleep promoted;single patient room provided Coping Strategies Supportive Measures active listening utilized Goal: Discharge Needs Assessment Outcome: Ongoing (Interventions Implemented as Appropriate) 07/30/19 0232 08/01/19 1731 Discharge Needs Assessment Concerns To Be Addressed basic needs concerns -- Readmission Within The Last 30 Days no previous admission in last 30 days -- Discharge Disposition -- still a patient Current Health Anticipated Changes Related to Illness inability to care for self -- Living Environment Transportation Available ambulance -- Goal: Interdisciplinary Rounds/Family Conf Outcome: Ongoing (Interventions Implemented as Appropriate) 08/03/19 0526 Interdisciplinary Rounds/Family Conf Participants nursing;patient Problem: Skin Integrity Impairment, Risk/Actual (Adult) Goal: Skin Integrity/Wound Healing Patient will demonstrate the desired outcomes by discharge/transition of care. Outcome: Ongoing (Interventions Implemented as Appropriate) 08/03/19 0526 Skin Integrity Impairment, Risk/Actual (Adult) Skin Integrity/Wound Healing making progress toward outcome * Plan of Care - Giovana Ray RN - 08/02/2019 8:06 PM EDT Problem: Patient Care Overview Goal: Plan of Care Review 08/02/19 0230 08/02/19 0737 Plan of Care Review Progress progress towards functional goals is fair -- Coping/Psychosocial Plan Of Care Reviewed With -- patient OUTCOME EVALUATION NOTE: OUTCOME SUMMARY: Pt wifty and forgetful. Intermittently oriented x4 but pt continues to ask repetitive questions about place and situation. Denies SOB, chest pain, n/v, numbness/tingling. Dressings c/d/i and bruisingpresent to R shoulder, sling in place. On 2L NC sating >90%. Went to HD this AM. Pt anxious and yelling out throughout the day. Team notified of behavior and frequent reorientation of pt. Assessedat bedside and behavior deemed to be not neurologically related by TRUST CLERK. VSS. Anticipated d/c tomorrow, will continue to monitor. PLAN MOVING FORWARD: D/c planning Pain control Mobilize INDIVIDUALIZED FALL PREVENTION INTERVENTIONS: Patient-specific fall risk factors per assessment: [current deficits]: Hospital environment, medication therapy, generalized weakness Assistance [level of assistance required for transfers and ambulation]: X2 w/ gait belt Supervision [direct monitoring required during toileting and ADLs]: Eyes on Surveillance [continuous indirect monitoring]: Irais, sarah rounding, NKE CPG GOAL OUTCOME EVALUATION: Goal: Fall Prevention-Safe Patient Handling 08/02/19 0737 08/02/19 0823 Daily Care Interventions Self-Care Promotion BADL personal objects within reach;independence encouraged;safe use of adaptiveequipment encouraged -- Luan Fall Risk History of Falling 25 -- Secondary Diagnosis 15 -- Ambulatory Aids 0 -- Intravenous Therapy/Heparin/Saline Lock 20 -- Gait/Transferring 20 -- Mental Status 0 -- Score 80 -- OTHER Luna Fall Risk High -- Restraint Interventions Safety Promotion/Fall Prevention activity supervised;fall prevention program maintained;nonskid shoes/slippers when out of bed;safety round/check completed -- Positioning Body Position supine, head elevated -- Activity Activity Type -- activity adjusted per tolerance Activity Assistance Provided -- assistance, 2 people Assistive Device Utilized -- gait belt Goal: Infection Control 08/02/19 0737 Safety Interventions Isolation Precautions standard precautions maintained Infection Prevention rest/sleep promoted;single patient room provided Coping Strategies Supportive Measures active listening utilized;verbalization of feelings encouraged Goal: Discharge Needs Assessment 08/01/19 1731 Discharge Needs Assessment Discharge Disposition still a patient Goal: Interdisciplinary Rounds/Family Conf 08/02/19 0230 Interdisciplinary Rounds/Family Conf Participants nursing;patient * Plan of Care - Bahman Ham PT - 08/02/2019 2:34 PM EDT PHYSICAL THERAPY NOTE Attempted to see patient this afternoon but deferred secondary to being too tired after dialysis. Therapy will follow up tomorrow as appropriate/able. Bahman Ham PT, DPT Pager [phone] Inpatient Rehabilitation * Plan of Care - Deandra Hermosillo OTA - 08/02/2019 12:46 PM EDT Pt was off the floor for HD. Will continue to follow. JEOVANNY Lopes Pager [phone] * Plan of Care - Kendra Beckett RN - 08/02/2019 2:34 AM EDT Problem: Patient Care Overview Goal: Plan of Care Review Outcome: Ongoing (Interventions Implemented as Appropriate) 08/02/19 0230 Plan of Care Review Progress progress towards functional goals is fair Coping/Psychosocial Plan Of Care Reviewed With patient OUTCOME EVALUATION NOTE: OUTCOME SUMMARY: Patient progressing towards d/c goals appropriately at this time. Patients pain adequately controlled, see MAR for medications given. Patient has been sleeping in between care. R arm bruised and swollen, ice applied. Sling currently off per patient preference. 2L NC maintained, sats in high 90s. VSS. Pt had a small BM overnight. Neuro checks unchanged; pt is able to answer all orientation question s appropriately but is forgetful. Frequently complains of R arm pain when awake. Remains on tele insinus tachycardia. Will continue to monitor and help patient reach d/c goals. PLAN MOVING FORWARD: Pain control Mobilize D/c planning INDIVIDUALIZED FALL PREVENTION: Patient is currently a high risk to Fall. Patient educated on bed/chair alarm, demonstrates proper use of call medeiros and verbalizes understanding of fall preventions implemented. Patient-specific fall risk factors per assessment: [current deficits]: R arm non-weightbearing, Pain, Medications, Hospital Environment. Assistance [level of assistance required for transfers and ambulation]: x2 assist with gait belt Supervision [direct monitoring required during toileting and ADLs]: Hands-on assistance with ADL's Surveillance [continuous indirect monitoring]: Tele, Masimo, Purposeful Rounding, Bedside Report Patient-specific fall prevention interventions for sensory deficits provided, if applicable: [X] N/A CPG GOAL OUTCOME EVALUATION: Goal: Fall Prevention-Safe Patient Handling Outcome: Ongoing (Interventions Implemented as Appropriate) 08/01/192002 Daily Care Interventions Self-Care Promotion independence encouraged;BADL personal objects within reach;BADL personal routines maintained;safe use of adaptive equipment encouraged Luna Fall Risk History of Falling 25 Secondary Diagnosis 15 Ambulatory Aids 0 Intravenous Therapy/Heparin/Saline Lock 20 Gait/Transferring 20 Mental Status 0 Score 80 OTHER Luna Fall Risk High Restraint Interventions Safety Promotion/Fall Prevention activity supervised;fall prevention program maintained;nonskid shoes/slippers when out of bed;safety round/check completed Positioning Body Position supine, head elevated Activity Activity Type activity adjusted per tolerance Activity Assistance Provided assistance, 2 people Assistive Device Utilized gait belt Goal: Infection Control Outcome: Ongoing (Interventions Implemented as Appropriate) 08/01/192002 Safety Interventions Isolation Precautions standard precautions maintained Infection Prevention barrier precautions utilized;rest/sleep promoted;single patient room provided Coping Strategies Supportive Measures active listening utilized;counseling provided;decision- making supported Goal: Discharge Needs Assessment Outcome: Ongoing (Interventions Implemented as Appropriate) 07/30/192 08/01/19 1731 Discharge Needs Assessment Concerns To Be Addressed basic needs concerns -- Readmission Within The Last 30 Days no previous admission in last 30 days -- Discharge Disposition -- still a patient Current Health Anticipated Changes Related to Illness inability to care for self -- Living Environment Transportation Available ambulance -- Goal: Interdisciplinary Rounds/Family Conf Outcome: Ongoing (Interventions Implemented as Appropriate) 08/02/19 023 Interdisciplinary Rounds/Family Conf Participants nursing;patient Problem: Skin Integrity Impairment, Risk/Actual (Adult) Goal: Identify Related Risk Factors and Signs and Symptoms Related risk factors and signs and symptoms are identified upon initiation of Human Response Clinical Practice Guideline (CPG) Outcome: Ongoing (Interventions Implemented as Appropriate) 07/30/19231 Skin Integrity Impairment, Risk/Actual Skin Integrity Impairment, Risk/Actual: Related Risk Factors traumatic injury Goal: Skin Integrity/Wound Healing Patient will demonstrate the desired outcomes by discharge/transition of care. Outcome: Ongoing (Interventions Implemented as Appropriate) 08/02/19 0230 Skin Integrity Impairment, Risk/Actual (Adult) Skin Integrity/Wound Healing making progress toward outcome * Plan of Care - Giovana Ray RN - 08/01/2019 5:40 PM EDT Problem: Patient Care Overview Goal: Plan of Care Review 07/31/19 1725 08/01/19 0827 Plan of Care Review Progress no change -- Coping/Psychosocial Plan Of Care Reviewed With -- patient OUTCOME EVALUATION NOTE: OUTCOME SUMMARY: Pt A+Ox4 but wifty and forgetful w/ conversations. Denies SOB, chest pain, n/v, numbness/tingling. Neuro checks unchanged. On tele, no tele events. In sinus tachycardia to low 100s throughout shift. PRNs administered. Pt lethargic after administration, continues to rate pain high when awake from sleep. Worked w/ PT/OT today. Sat and stood at EOB multiple times w/ PT. Pt on 2L NC sating >95%, pt desats to 60s on RA and recovers within [address] for comfort. Dressings c/d/i to RUE, bruising present. Pt c/o R shoulder popping, team notified. Suppository administered. VSS. Pt to go to HD tomorrow. Will continue to monitor. PLAN MOVING FORWARD: D/c planning Pain control Mobilize HD INDIVIDUALIZED FALL PREVENTION INTERVENTIONS: Patient-specific fall risk factors per assessment: [current deficits]: Fall history, medication therapy, generalized weakness, hospital environment Assistance [level of assistance required for transfers and ambulation]: X2A w/ gait belt Supervision [direct monitoring required during toileting and ADLs]: Eyes on Surveillance [continuous indirect monitoring]: Irais, tele, hourly rounding, NKE CPG GOAL OUTCOME EVALUATION: Goal: Fall Prevention-Safe Patient Handling 07/31/19 0745 08/01/19 0827 Daily Care Interventions Self-Care Promotion independence encouraged;BADL personal objects within reach;BADL personal routines maintained;safe use of adaptive equipment encouraged -- Luna Fall Risk History of Falling -- 25 Secondary Diagnosis -- 15 Ambulatory Aids -- 0 Intravenous Therapy/Heparin/Saline Lock -- 20 Gait/Transferring -- 10 Mental Status -- 0 Score -- 70 OTHER Luna Fall Risk -- High Restraint Interventions Safety Promotion/Fall Prevention -- activity supervised;fall prevention program maintained;nonskid shoes/slippers when out of bed;safety round/check completed Positioning Body Position -- supine, head elevated Activity Activity Type -- activity adjusted per tolerance Activity Assistance Provided -- assistance, 2 people Assistive Device Utilized -- gait belt Goal: Infection Control 08/01/19 0827 Safety Interventions Isolation Precautions standard precautions maintained Infection Prevention rest/sleep promoted;single patient room provided Coping Strategies Supportive Measures active listening utilized;verbalization of feelings encouraged Goal: Discharge Needs Assessment 08/01/191730 Discharge Needs Assessment Discharge Disposition still a patient Goal: Interdisciplinary Rounds/Family Conf 08/01/191730 Interdisciplinary Rounds/Family Conf Participants patient;nursing * Plan of Care - Bahman Ham, PT - 08/01/2019 2:46 PM EDT Physical Therapy Note Treatment Number PT: 2 Patient profile: Maurice Rudolph is a 59 y.o. right-handed male admitted on 07/29/[address] Aaron Dover MD forinjuries sustained s/p fall down 12 steps possibly due to syncope. Injuries include: ?? Traumatic Brain Injury - Small bilateral intraparenchymal cerebral hematomas ?? Pulmonary/Chest - Right pulmonary contusion with small hemothorax - LLL opacity - likely atelectasis versus contusion - Right 2nd rib fracture ?? Musculoskeletal - Comminuted right humeral head fracture - Right mid clavicle fracture, non-displaced - Right scapular spine fracture, non-displaced - L1, L2 transverse process fractures - T1-T4 transverse process fractures - As mentioned above, right 2nd rib fracture Interval History: rising troponins .06 to .12 Social History: lives with his (who is wheelchair bound) and his 30-year old son; unemployed on disability Home set-up: 2-level home but can set up on 1st level Stairs: ramp entrance to home Baseline Mobility: independent ambulation; has a cane but doesn't usually use it Equipment at home: cane; ramp into home Fall history: not prior to this accident Precautions/Special Considerations: NWB R UE and sling when upright; SBP<160; difficult airway; monitor troponins (had slight increase on 2nd read: .06 to .07); fall risk; poor vision Activity Orders: as tolerated with above precautions Diet: carb control Mobility and Positioning Recommendations: ?? Pt. To utilize gait belt and LUE hand hold for transfers with nursing ?? NOT APPROPRIATE FOR AMBULATION. ?? Please encourage up to chair for meal times as able. Subjective: My R arm hurts, what did I do to it Objective: Patient seen for physical therapy and demonstrated the following: Pain: increased pain in R shoulder but no # provided Vital Signs: HR 60-103 bpm bouncing around during session Spo2 99% on 2L ?? Supine>sit: HOB elevated, modA, increased time to complete, use of bed features ?? Sitting balance: supervision-Blu; pt with anterior and L sided lean secondary to pain ?? Sit<>stands: x12, RUE in sling, LUE hand hold, Blu provided, multiple attempts to rise, fair eccentric control ?? Standing balance: poor, retropulsion noted, only able to stand ~15s at each time ?? Attempted transfer bed>chair: pt unable to weight shift or move feet in order to transfer; moved few inches and determined unsafe to continue transfer at this time ?? Sit>supine: Blu for LE's ?? Pt instructed on bridging and put in reverse trende[place]mb[place] and instructed to scoot up in bed forbetter positioning ?? Brought pt into bed-chair position in bed, removed sling and positioned arm on pillows ?? Cognition; ?? Pt perseverative on pain during session ?? Asking where he was, thought he was in [place] ?? Unable to come up with town where hospital was, but able to state there was a college here ?? Intermittently able to state why he was here fell down stairs , unable to state injuries ?? Kept eyes closed most of session unless prompted to open them ?? Pt left in chair position in bed, bed alarm on, call medeiros in reach following visit. Education: Pt educated on importance of mobility at this time Assessment: Maurice Gurrola Ronni was seen today for physical therapy treatment session for continuationof POC. Patient continues with cognitive impairments and fluctuating levels of pain. Able to participate in repeated sit to stands this session with stable vitals. Attempted ambulation this session but was not safe due to patient's inability to perform weight shifting at this time. Pt will benefit from ongoing therapeutic interventions to achieve therapy goals. Discharge Recommendations: Based on the current findings, Anticipated Discharge Disposition: inpatient rehabilitation facilitywhen medically ready for hospital discharge. Consult Recommendations: No other consults recommended at this time. Equipment needs: TD Physical Therapy Goals: To be achieved by 08/07/19: ?? 1. Pt. to demonstrate knowledge of safety limitations and precautions and will appropriately request assistance for functional activities and to mobilize. 2. Pt. to demonstrate understanding of appropriate exercises. 3. Pt. to perform bed mobility independently. 4. Pt. to perform sit to stand transfers independently using unilateral device on L as needed. 5. Pt. to ambulate 150 feet independently using a unilateral device on L as needed. Family or caregiver to demonstrate understanding of therapeutic interventions to support the care of the patient. Plan: Therapy Frequency: 3-5 times/wk for as outlined in initial evaluation. Patient agrees with plan as stated. Time IN / OUT: 7633-2623 Total Evaluation Minutes, Physical Therapy: 28(TEF x2) Bahman Ham PT Pager: [phone] Physical Therapy Inpatient Rehabilitation Department * Plan of Care - Catrachita Castellon OTA - 08/01/2019 2:08 PM EDT Occupational Therapy Note: Attempted to see patient. Pt reported had received pain meds a few in ago. Pt unable to stay awake long enough to finish sentences. He did report the pain meds made him very sleepy. Will try to follow up another time. Catrachita WRIGHT Pager:[phone] Occupational Therapy * Consult Note - Jonatan Elias - 08/01/2019 11:33 AM EDT Inpatient Cardiology Consult Note Date of Consultation: 08/01/2019 Admit Date: 07/29/2019 Place of Service: 3W 308 Consult Attending: Dr. Vernon Hospital Day 2 days Reason for Consult: Troponinemia Active Problems: Patient Active Problem List Diagnosis ??? Closed [...] Proliferative diabetic retinopathy, both eyes Overview Note: Subjective: Mr. Rudolph is a 59 year old man with a history of ESRD on HD, CAD s/p CABGx3 ([place] 2014), obesity, DM, HTN, CVA (R basal ganglia), who presented to the hospital 2 days ago as a trauma after a fall down the stairs resulting in a R proximal humerus fracture, R clavicle fraction, R scapula fracture, R 2nd rib fracture, hemorrhagic cerebral contusions, R pulmonary contusion, T1-T4 R transverse process fracture, L1-L2 L tansverse process fracture. He reports that he does not know how he fell but he remembers falling before losing consciousness. He has significant pain from his injuries but he denies chest pain or pressure, current light headedness, dizziness, palpitations. He reports he is short of breath but that is his baseline (from life)which is not worse than usual. Denies orthopnea or PND. Objective: Vitals: Last value Range last 24 hrs Temperature Temp: 36.7 ??C (98.1 ??F) Temp: [36.5 ??C (97.7 ??F)-37 ??C (98.6 ??F)] Heart Rate Heart Rate: 97 Heart Rate: -- Blood Pressure BP: 131/75 BP: (131-161)/(75-88) Respiratory Rate Resp: 16 Resp: [16-18] SpO2 SpO2: 96 % SpO2: [96 %-98 %] I's and O's: Intake/Output Summary (Last 24 hours) at 08/01/2019 1134 Last data filed at 08/01/2019 0356 Gross per 24 hour Intake 640 ml Output 2000 ml Net -1360 ml Weights: Patient Vitals for the past 168 hrs: Weight 07/30/19 0127 103.4 kg (227 lb 15.3 oz) Examination: Gen: AOx3, no acute distress HEENT: PERRL, EOMI, MMM Cardiac: RRR, no murmurs detected Pulm: Anterior lung manley distant Abd: Soft, nontender LE: No significant edema Diagnostics: EKG: Sinus tachycardia with PVC/fusion beats Echocardiogram: SUMMARY: ?? 1. Technically difficult study despite use of [...] There is no prior study for comparison. Assessment: Mr. Rudolph is a 59 year old man with a history of ESRD on HD, CAD s/p CABGx3 (2014), obesity, DM, HTN, CVA (R basal ganglia), who presented to the hospital 2 days ago as a trauma after a fall down the stairs resulting in a R proximal humerus fracture, R clavicle fraction, R scapula fracture, R 2nd rib fracture, hemorrhagic cerebral contusions, R pulmonary contusion, T1-T4 R transverse process fracture, L1-L2 L tansverse process fracture. He has low level troponinemia in the setting of ESRD in the absence of ischemic changes on EKG, wall motion abnormalities on echocardiogram and symptoms of ACS. He would therefore not meet criteria for myocardial infarction. His troponinemia can be explained by his known CAD in the setting of ESRD and may not necessarily be cleared by hemodialysis. Would not recommend further cardiac testing in the absence of symptoms concerning for acute coronary syndrome. He should be referred to cardiology for a follow-up and to establish care given his CAD history. Recommendations: -Continue ASA and statin -Cardiology referral as an outpatient Jonatan Elias MD Process Excellence Manager PGY-4 08/01/2019 Page [phone] Associated attestation - Matteo Vernon MD - 08/01/2019 2:26 PM EDT I have seen the patient and reviewed Dr. Elias's history and I agree with the details as written. The assessment and plan were formulated in discussion with me and I agree with them as documented. Mr. Rudolph is a 59 year old man with established CAD s/p CABG, DM, HTN, ESRD on IHD who presented with significant trauma. He also has been noted to have mildly elevated flat troponin. He has no angina. There are no ECG changes and troponin is normal. Troponin elevation is not due to ACS but rather chronic myocardial injury in the setting of ESRD. No reason to trend troponins at this point unless he develops chest pain. Matteo Vernon MD, MPH Cardiovascular Medicine * Plan of Care - Bibiana Venegas RN - 08/01/2019 3:25 AM EDT Problem: Patient Care Overview Goal: Plan of Care Review Outcome: Ongoing (Interventions Implemented as Appropriate) 07/31/19 1725 07/31/19 1950 Plan of Care Review Progress no change -- Coping/Psychosocial Plan Of Care Reviewed With -- patient OUTCOME EVALUATION NOTE: OUTCOME SUMMARY: Patient progressing towards d/c goals appropriately at this time. Q4 neuro checks remain unchanged,patient wifty and forgetful but will appropriately answer orientation questions. Patient maintaining on 2L NC, tolerating well. HR tachycardic overnight, no tele events. Pain regimen adjusted due to unresolved pain, new dosing with positive effect, see MAR. Patient oliguric d/t HD. Patient has RUE sling, brusing and abrasions noted to skin and top of head. Patient denies chest pain or shortness of breath. Will continue to monitor and help patient reach d/c goals. PLAN MOVING FORWARD: Pain control Mobilize D/c planning INDIVIDUALIZED FALL PREVENTION: Patient is currently a high risk to Fall. Patient educated on bed/chair alarm, demonstrates proper use of call medeiros and verbalizes understanding of fall preventions implemented. Patient-specific fall risk factors per assessment: [current deficits]: Occasional confusion, NWB RUE, IV Sites, Pain, Medications, Hospital Environment. Assistance [level of assistance required for transfers and ambulation]: 1-2 assist, gait belt Supervision [direct monitoring required during toileting and ADLs]: Hands on, eyes on assistance with ADL's Surveillance [continuous indirect monitoring]: Telemetry, Masimo, Purposeful Rounding, Bedside Report Patient-specific fall prevention interventions for sensory deficits provided, if applicable: [X] Yes CPG GOAL OUTCOME EVALUATION: Goal: Fall Prevention-Safe Patient Handling Outcome: Ongoing (Interventions Implemented as Appropriate) 07/31/19 0745 07/31/19 1950 Daily Care Interventions Self-Care Promotion independence encouraged;BADL personal objects within reach;BADL personal routines maintained;safe use of adaptive equipment encouraged -- Luna Fall Risk History of Falling -- 25 Secondary Diagnosis -- 15 Ambulatory Aids -- 0 Intravenous Therapy/Heparin/Saline Lock -- 20 Gait/Transferring -- 10 Mental Status -- 0 Score -- 70 OTHER Luna Fall Risk -- High Restraint Interventions Safety Promotion/Fall Prevention -- safety round/check completed Positioning Body Position -- supine, head elevated Activity Activity Type -- activity adjusted per tolerance Activity Assistance Provided -- assistance, 2 people Assistive Device Utilized -- gait belt Goal: Infection Control Outcome: Ongoing (Interventions Implemented as Appropriate) 07/31/19 1950 Safety Interventions Isolation Precautions standard precautions maintained Infection Prevention rest/sleep promoted;single patient room provided Coping Strategies Supportive Measures active listening utilized;self-responsibility promoted;verbalization of feelings encouraged Goal: Discharge Needs Assessment Outcome: Ongoing (Interventions Implemented as Appropriate) 07/30/19 0232 Discharge Needs Assessment Concerns To Be Addressed basic needs concerns Readmission Within The Last 30 Days no previous admission in last 30 days Current Health Anticipated Changes Related to Illness inability to care for self Living Environment Transportation Available ambulance Goal: Interdisciplinary Rounds/Family Conf Outcome: Ongoing (Interventions Implemented as Appropriate) 07/31/19 1725 Interdisciplinary Rounds/Family Conf Participants nursing;patient;physician Problem: Skin Integrity Impairment, Risk/Actual (Adult) Goal: Identify Related Risk Factors and Signs and Symptoms Related risk factors and signs and symptoms are identified upon initiation of Human Response Clinical Practice Guideline (CPG) Outcome: Ongoing (Interventions Implemented as Appropriate) 07/30/19 0232 Skin Integrity Impairment, Risk/Actual Skin Integrity Impairment, Risk/Actual: Related Risk Factors traumatic injury Goal: Skin Integrity/Wound Healing Patient will demonstrate the desired outcomes by discharge/transition of care. Outcome: Ongoing (Interventions Implemented as Appropriate) 07/31/19 1725 Skin Integrity Impairment, Risk/Actual (Adult) Skin Integrity/Wound Healing making progress toward outcome * Plan of Care - Kendra Beckett RN - 07/31/2019 5:29 PM EDT Problem: Patient Care Overview Goal: Plan of Care Review Outcome: Ongoing (Interventions Implemented as Appropriate) 07/31/19 1725 Plan of Care Review Progress no change Coping/Psychosocial Plan Of Care Reviewed With patient OUTCOME EVALUATION NOTE: OUTCOME SUMMARY: Patient progressing towards d/c goals appropriately at this time. Patients pain fairly controlled, see MAR for medications given. Pt consistently c/o pain to R arm and shoulder, PRN dilaudid given with + effect. Went to dialysis this AM, 2L removed with no issue. VSS, sats maintained on 2L NC. Telecontinued, sinus tachycardia with PVCs. EKG and troponin drawn this afternoon, see results review. BGs well controlled. Neuro checks unchanged, but pt will wake up and say he is confused, seeming very anxious, but able to answer all orientation questions appropriately. Will continue to monitor and help patient reach d/c goals. PLAN MOVING FORWARD: Pain control Mobilize HD Thurs D/c planning INDIVIDUALIZED FALL PREVENTION: Patient is currently a high risk to Fall. Patient educated on bed/chair alarm, demonstrates proper use of call medeiros and verbalizes understanding of fall preventions implemented. Patient-specific fall risk factors per assessment: [current deficits]: Weakness, Pain, Medications,Hospital Environment. Assistance [level of assistance required for transfers and ambulation]: x2 assist with gait belt Supervision [direct monitoring required during toileting and ADLs]: Hands-on assistance with ADL's Surveillance [continuous indirect monitoring]: Telemetry, Masimo, Purposeful Rounding, Bedside Report Patient-specific fall prevention interventions for sensory deficits provided, if applicable: [X] N/A CPG GOAL OUTCOME EVALUATION: Goal: Fall Prevention-Safe Patient Handling Outcome: Ongoing (Interventions Implemented as Appropriate) 07/31/19 0745 Daily Care Interventions Self-Care Promotion independence encouraged;BADL personal objects within reach;BADL personal routines maintained;safe use of adaptive equipment encouraged Luna Fall Risk History of Falling 25 Secondary Diagnosis 15 Ambulatory Aids 0 Intravenous Therapy/Heparin/Saline Lock 20 Gait/Transferring 10 Mental Status 0 Score 70 OTHER Luna Fall Risk High Restraint Interventions Safety Promotion/Fall Prevention activity supervised;fall prevention program maintained;nonskid shoes/slippers when out of bed;safety round/check completed Positioning Body Position supine, head elevated Activity Activity Type activity adjusted per tolerance Activity Assistance Provided assistance, 2 people Assistive Device Utilized gait belt Goal: Infection Control Outcome: Ongoing (Interventions Implemented as Appropriate) 07/31/1945 Safety Interventions Isolation Precautions standard precautions maintained Infection Prevention barrier precautions utilized;rest/sleep promoted;single patient room provided Coping Strategies Supportive Measures active listening utilized;counseling provided;decision- making supported Goal: Discharge Needs Assessment Outcome: Ongoing (Interventions Implemented as Appropriate) 07/30/19 023 Discharge Needs Assessment Concerns To Be Addressed basic needs concerns Readmission Within The Last 30 Days no previous admission in last 30 days Current Health Anticipated Changes Related to Illness inability to care for self Living Environment Transportation Available ambulance Goal: Interdisciplinary Rounds/Family Conf Outcome: Ongoing (Interventions Implemented as Appropriate) 07/31/19 1725 Interdisciplinary Rounds/Family Conf Participants nursing;patient;physician Problem: Skin Integrity Impairment, Risk/Actual (Adult) Goal: Identify Related Risk Factors and Signs and Symptoms Related risk factors and signs and symptoms are identified upon initiation of Human Response Clinical Practice Guideline (CPG) Outcome: Ongoing (Interventions Implemented as Appropriate) 07/30/19 023 Skin Integrity Impairment, Risk/Actual Skin Integrity Impairment, Risk/Actual: Related Risk Factors traumatic injury Goal: Skin Integrity/Wound Healing Patient will demonstrate the desired outcomes by discharge/transition of care. Outcome: Ongoing (Interventions Implemented as Appropriate) 07/31/19 1725 Skin Integrity Impairment, Risk/Actual (Adult) Skin Integrity/Wound Healing making progress toward outcome * Plan of Care - Maegan Pedroza, PT - 07/31/2019 9:40 AM EDT Physical Therapy Contact Note 07/31/19 0960 Rehab Evaluation Document Type contact Total Evaluation Minutes, Physical Therapy 0 Evaluation Not Performed Comment Attempted to see pt for physical therapy this AM however pt was off floor at HD. Plan to follow up tomorrow. Maegan Pedroza, PT DPT Pager #[phone] 07/31/2019 Physical Therapy Rehabilitation Department * Plan of Care - Catrachita Castellon OTA - 07/31/2019 8:44 AM EDT Occupational Therapy Note: Attempted to see patient. Pt off of floor at HD. Will follow up another time. Catrachita WRIGHT Pager:[phone] Occupational Therapy * Plan of Care - Bibiana Venegas RN - 07/31/2019 4:54 AM EDT Problem: Patient Care Overview Goal: Plan of Care Review Outcome: Ongoing (Interventions Implemented as Appropriate) 07/30/19 0232 07/30/192104 Plan of Care Review Progress no change -- Coping/Psychosocial Plan Of Care Reviewed With -- patient OUTCOME EVALUATION NOTE: OUTCOME SUMMARY: Patient rested in between care this shift. BPs elevated, otherwise VSS. Troponin labs being collected Q6, EKG ordered this AM. Patient tolerating 2L NC overnight. Patient A+O x 4 but wifty overnight.Patient oliguric d/t hemodialysis. Patient has RUE sling, abrasions to skin and top of head intact. Mepilex applied to R knee. Patients pain adequately controlled, see MAR for medications given. Patient denies chest pain, shortness of breath, or new numbness or tingling. Will continue to monitor and help patient reach d/c goals. PLAN MOVING FORWARD: Pain control Monitor troponin levels Mobilize D/c planning INDIVIDUALIZED FALL PREVENTION: Patient is currently a high risk to Fall. Patient educated on bed/chair alarm, demonstrates proper use of call medeiros and verbalizes understanding of fall preventions implemented. Patient-specific fall risk factors per assessment: [current deficits]: Decreased vision, NWB RLE, IV Sites, Pain, Medications, Hospital Environment. Assistance [level of assistance required for transfers and ambulation]: X 2, FWW + gait belt Supervision [direct monitoring required during toileting and ADLs]: Hands on, eyes on assistance with ADL's Surveillance [continuous indirect monitoring]: Telemetry, Masimo, Purposeful Rounding, Bedside Report Patient-specific fall prevention interventions for sensory deficits provided, if applicable: [X] Yes CPG GOAL OUTCOME EVALUATION: Goal: Fall Prevention-Safe Patient Handling Outcome: Ongoing (Interventions Implemented as Appropriate) 07/30/19 0600 07/30/19 1200 07/30/192104 Daily Care Interventions Self-Care Promotion independence encouraged -- -- Luna Fall Risk History of Falling -- -- 25 Secondary Diagnosis -- -- 15 Ambulatory Aids -- -- 0 Intravenous Therapy/Heparin/Saline Lock -- -- 20 Gait/Transferring -- -- 10 Mental Status -- -- 15 Score -- -- 85 OTHER Luna Fall Risk -- -- High Restraint Interventions Safety Promotion/Fall Prevention -- -- activity supervised;safety round/check completed Positioning Body Position -- -- supine, head elevated Activity Activity Type -- -- activity adjusted per tolerance Activity Assistance Provided -- assistance, 1 person -- Goal: Infection Control Outcome: Ongoing (Interventions Implemented as Appropriate) 07/30/192104 Safety Interventions Isolation Precautions standard precautions maintained Infection Prevention rest/sleep promoted;single patient room provided Coping Strategies Supportive Measures active listening utilized;verbalization of feelings encouraged Goal: Discharge Needs Assessment Outcome: Ongoing (Interventions Implemented as Appropriate) 07/30/19231 Discharge Needs Assessment Concerns To Be Addressed basic needs concerns Readmission Within The Last 30 Days no previous admission in last 30 days Current Health Anticipated Changes Related to Illness inability to care for self Living Environment Transportation Available ambulance Goal: Interdisciplinary Rounds/Family Conf Outcome: Ongoing (Interventions Implemented as Appropriate) 07/30/19231 Interdisciplinary Rounds/Family Conf Participants patient;physician;nursing Problem: Skin Integrity Impairment, Risk/Actual (Adult) Goal: Identify Related Risk Factors and Signs and Symptoms Related risk factors and signs and symptoms are identified upon initiation of Human Response Clinical Practice Guideline (CPG) Outcome: Ongoing (Interventions Implemented as Appropriate) 07/30/19 0232 Skin Integrity Impairment, Risk/Actual Skin Integrity Impairment, Risk/Actual: Related Risk Factors traumatic injury Goal: Skin Integrity/Wound Healing Patient will demonstrate the desired outcomes by discharge/transition of care. Outcome: Ongoing (Interventions Implemented as Appropriate) 07/30/19 0232 Skin Integrity Impairment, Risk/Actual (Adult) Skin Integrity/Wound Healing making progress toward outcome * Plan of Care - Lola King, PT - 07/30/2019 4:05 PM EDT Physical Therapy Evaluation Patient profile: Maurice Rudolph is a 59 y.o. right-handed male admitted on 07/29/[address] Yfn Dover MD for injuries sustained s/p fall down 12 steps possibly due to syncope. Injuries include: Traumatic Brain Injury - Small bilateral intraparenchymal cerebral hematomas ?? Pulmonary/Chest - Right pulmonary contusion with small hemothorax - LLL opacity - likely atelectasis versus contusion - Right 2nd rib fracture ?? Musculoskeletal - Comminuted right humeral head fracture - Right mid clavicle fracture, non-displaced - Right scapular spine fracture, non-displaced - L1, L2 transverse process fractures - T1-T4 transverse process fractures - As mentioned above, right 2nd rib fracture Patient with the following active problems: Past Medical History: Diagnosis Date ??? Acute [...] ??? CATARACT REMOVAL 07/18/12 OD [facility] ??? PERIPHERAL IRIDOTOMY 04/06/2012 OD [facility] ??? PRO EXTRACAPSULAR CATARACT RMVL INSERTION IO LENS PROSTH CPLX WO ECP 07/18/2012 ??? PRO EXTRACAPSULAR CATARACT RMVL INSERTION IO LENS PROSTH W/O ECP 11/29/2012 CATARACT EXTRACTION, EXTRACAPSULAR, W/ LENS INSERTION performed by Erasmo Bajwa MD at [facility] ? ? PRO REPAIR COMPLEX RETINA DETACH VITRECTOMY & MEMB PEEL 04/03/2012, 04/03/12 REPAIR COMPLEX RETINAL DETACHMENT, W/ VITRECTOMY, MEMBRANE PEELING performed by Matteo Diane MD at [facility] MAIN OR ? ? PRO REPAIR COMPLEX RETINA DETACH VITRECTOMY & MEMB PEEL 07/31/2012 REPAIR COMPLEX RETINAL DETACHMENT, W/ VITRECTOMY, MEMBRANE PEELING performed by Matteo Diane MD at [facility] MA[facility] OR ? ? PRO REPAIR COMPLEX RETINA DETACH VITRECTOMY & MEMB PEEL 01/08/2013 REPAIR COMPLEX RETINAL DETACHMENT, W/ VITRECTOMY, MEMBRANE PEELING performed by Matteo Diane MD at [facility] MA[facility] OR ??? PRO TX EXTENSIVE [...] YAG CAPSULOTOMY 11/15/2013 OS - Dr Bajwa CABG - on aspirin Active Non-Hospital Problems Diagnosis ??? Cellulitis ??? Pre-transplant evaluation for kidney [...] disease) ??? Proliferative diabetic retinopathy, both eyes Prior CVA (basal ganglia) Social History: lives with his (who is wheelchair bound) and his 30-year old son; unemployed on disability Home set-up: 2-level home but can set up on 1st level Stairs: ramp entrance to home Baseline Mobility: independent ambulation; has a cane but doesn't usually use it Equipment at home: cane; ramp into home Fall history: not prior to this accident Precautions/Special Considerations: NWB R UE and sling when upright; SBP<160; difficult airway; monitor troponins (had slight increase on 2nd read: .06 to .07); fall risk; poor vision Activity Orders: as tolerated with above precautions Diet: carb control Mobility and Positioning Recommendations: ?? Pt. to utilize gait belt and L UE support or unilateral assistive device for ambulation and transfers with nursing. ?? Please encourage up to chair for meal times as able. ?? Pt encouraged to ambulate frequently with staff, getting into the bathroom for toileting and walking out in the rivera >/= 3 times daily as able. Subjective: ???I could get my son to help me with some things and we have help a couple times a week for housekeeping and for my .?? Objective: Pt seen for evaluation today. Pain: Number Location At rest no number given R shoulder With activity no number given R shoulder Vital Signs: At Rest With Activity SpO2 (2L NC O2) 92% 95-97% BP (MAP) WNL with SBP<160 WNL with SBP<160 HR 90's bpm 90's-100's bpm Mental Status: drowsy, arousable, oriented x 3; pleasant, cooperative, and conversant Vision: impaired due to diabetic retinopathy; has glasses but not available (? If broken in fall) Skin: R upper arm and elbow ecchymotic; abrasions on head, R elbow, bilateral knees and R lower leg Musculoskeletal: ROM: L UE shoulder flexion ~130 and tight, otherwise L UE and bilateral LE's WNL; R elbow flexion, wrist and fingers WNL; R elbow extension -15 limited by shoulder pain; R shoulder not assessed due to fractures Strength: WNL L UE, bilateral LE's and R wrist/fingers; R elbow flexion at least 3 Sensation: impaired light touch in bilateral feet/toes; intact in bilateral fingers/hands Bed Mobility: Supine to Sit: not assessed; already up in chair and stayed up after session Sit to Supine: not assessed Transfers: Sit to Stand: minimal assist from recliner Stand to Sit: contact guard with verbal cues Bed to Chair: minimal assist with L hand hold and gait belt Gait: deferred due to uptrending troponins; to be assessed tomorrow if stable Balance: Sitting Static: good Sitting Dynamic: fair Standing Static: fair Standing Dynamic / Gait: poor Education: Patient has been educated on Exercise, Safety , Role of therapy and Discharge planning and needs reinforcement. Patient status, treatment, and mobility recommendations discussed with nursing. Assessment: Maurice Rudolph was seen today for physical therapy evaluation. He presents with impairments in the following: pain control, strength and ROM in R shoulder, functional mobility, balance,and gait. Mobilizing for transfers with minimal assist. More exertional activity assessment deferred until 3rd troponin reading available. Will likely benefit from use of a hemiwalker or cane of sorts for ambulation initially. He is R-hand dominant so will be at a bit of a disadvantage for ADL's using non-dominant UE. He will need to be fairly independent for home management but may have some help from his son. The pt would benefit from skilled therapy services while in the hospital to maximize functional abilities. Discharge Recommendations: Based on the current findings, Anticipated Discharge Disposition: inpatient rehabilitation facilityversus home with assist from son and home services when medically ready for hospital discharge. Consult Recommendations: No other consults recommended at this time. Equipment needs: ongoing assessment Goals: To be achieved by 08/07/19: 1. Pt. to demonstrate knowledge of safety limitations and precautions and will appropriately request assistance for functional activities and to mobilize. 2. Pt. to demonstrate understanding of appropriate exercises. 3. Pt. to perform bed mobility independently. 4. Pt. to perform sit to stand transfers independently using unilateral device on L as needed. 5. Pt. to ambulate 150 feet independently using a unilateral device on L as needed. 6. Family or caregiver to demonstrate understanding of therapeutic interventions to support the care of the patient. Plan: Therapy Frequency: 3-5 times/wk for therapy including balance training, bed mobility training, gait training, patient/family education, range of motion, strengthening and transfer training. Patient/family understand and agree with plan as stated above. 2017 PT Evaluation Code Rationale: ?? Diagnosis & Pertinent Co-Morbidities, personal factors, and present illness affecting Plan of Care: (see above); Additional personal factors or co- morbidities that impact plan: ?? Total # of Factors: 0 1-2 3+ x ?? Examination of body system impairments, functional limitations and behaviors, and/or participation restrictions. Addressing 1-2 elements Addressing 3 + elements Addressing 4 + elements x ?? Clinical presentation: See assessment above. Stable/Uncomplicated Evolving/Fluctuating Symptoms Unstable/Unpredictable x ?? Clinical decision making of high complexity based on pt's functional performance as outlined in this evaluation. Time IN / OUT: 3:10-4:05 Total Evaluation Minutes, Physical Therapy: 55 LOLA KING, PT Pager: [phone] Physical Therapy Inpatient Rehabilitation Department * Plan of Care - Cynthia Song RN - 07/30/2019 1:25 PM EDT Pt transferred to ISCU per MD order. Neuro exams benign. All imaging obtained. Pain controlled withPRN medications, see MAR for details. OT at bedside for evaluation. Oliguric per baseline. Nephrology and endocrinology at bedside. Report given to receiving RN. All questions answered. * Consult Note - Narcisa Tovar APRN - 07/30/2019 12:22 PM EDT Diabetes Management Team Inpatient Consult Date of Consultation: 07/30/2019 Consult Requested by: trauma Reason for Consultation: Maurice Rudolph is a 59 y.o. male with PMH significant for T2DM, ESRD on HD, obesity HTN and GEDR who was admitted on 07/29/2019 currently being treated for injuries due to fall down stairs ? Syncopal episode. We are being consulted to assist with diabetes management and toprovide a review of correction diabetes care. Injuries from H&P: - s/p fall down stairs, ?syncopal, 07/29/2019 - mTBI - B hemorrhagic cerebral contusions - R pulmonary contusion, occult - ?LLL contusion vs chronic/pre-existing issue - R 2nd rib fx - R clavicle fx - R scapula fx - R humerus fx - T1-T4 R transverse process fxs - L1-L2 L transverse process fxs - H/O prior CVA (R basal ganglia) Diabetes History: Maurice Rudolph has had diabetes since age 34. Managed with oral agents until a few years ago started on insulin. He established care in our clinic July 2018 but was lost to follow up, he called inFebruary for a prescription for his V Go pump and insulin, an appointment was scheduled for 08/29/19. He was evaluated by our transplant team for a renal transplant and was deemed not a candidate due to inability to contact patient. Current outpatient diabetes regimen: Diabetes Provider: Dr Roy. Medications: VGo insulin pump basal 40 units and 12 units with meals. Most recent HA1c was done on 07/29/19 and was 8.6%, suggesting an average glucose of 201 mg/dL for the past 6-8 weeks. Of note this is improved from 11.2% in Jun 2018. Trouble with hypoglycemia denies Diabetes Complications Status: Eyes: PDR Kidneys: ESRD on HD Feet: None Sensory: neuropathy Autonomic: None Cardiac: CAD Current Hospital Diabetes Care: Medications: Lispro moderate sliding scale q 4 hrs Monitoring: q 4 hrs Diet: carb control level 3 ROS: deferrred PMH Past Medical History: Diagnosis Date ??? Acute [...] dialysis, with long-term current use of insulin Current Hospital Medications: ??? levETIRAcetam 1,000 mg Oral Once Or ??? levETIRAcetam 1,000 mg Intravenous Once ??? [START ON 07/31/2019] levETIRAcetam 500 mg Oral 2 times per day Or ??? [START ON 07/31/2019] levETIRAcetam 500 mg Intravenous 2 times per day ??? sodium chloride 0.9 % (flush) 5 mL Intravenous BID ??? insulin lispro 1-6 Units Subcutaneous Q4H RICHELLE ??? famotidine 20 mg Oral Daily Or ??? famotidine 20 mg Intravenous Daily ??? acetaminophen 1,000 mg Oral Q6H RICHELLE ??? lidocaine 3 patch Transdermal Q24H And ??? lidocaine 3 patch Transdermal Q24H ??? polyethylene glycol (MIRALAX)oral powder 17 g Oral Daily ??? senna 8.6 mg Oral BID ??? insulin lispro 0-15 Units Subcutaneous Once ??? insulin glargine 30 Units Subcutaneous Q24H ??? insulin lispro 0-15 Units Subcutaneous TID WC Infusions: PRN: labetalol AND hydrALAZINE, sodium chloride 0.9 % (flush), lidocaine, naloxone, Glucose 40% oralgel OR dextrose 10% OR glucagon (human recombinant), oxyCODONE OR oxyCODONE Allergy: No Known Allergies Social history: Social History Tobacco Use ??? Smoking status: Former Smoker ??? Smokeless tobacco: Never Used ??? Tobacco comment: quit in his 20's Substance Use Topics ??? Alcohol use: No ??? Drug use: No Family history: Family History Problem Relation Age of [...] Neg Hx ??? Heart Disease Neg Hx Vitals Last value Range last 24 hrs Temperature Temp: 36.8 ??C (98.2 ??F) Temp: [36.5 ??C (97.7 ??F)-36.8 ??C (98.2 ??F)] Heart Rate Heart Rate: (!) 109 Heart Rate: [101-113] Blood Pressure BP: 132/76 BP: (115-166)/(59-111) Respiratory Rate Resp: 23 Resp: [9-24] SpO2 SpO2: 98 % SpO2: [87 %-100 %] Physical Exam: deferred Labs: Recent Labs 07/29/19 2359 WBC 11.3* HGB 10.9* HCT 32.1* PLATELET 135* NEUTROABS 9.43* Recent Labs 07/30/19 0610 07/29/19 2359 NA 136 136 K 4.5 3.9 CL 94* 93* CO2 29 31 BUN 37* 34* CREATININE 4.89* 4.59* GLUCOSE 233* 159 Recent Labs 07/30/19 0610 07/29/19 2359 CALCIUM 8.6 8.8 MAGNESIUM 0.81 -- PHOS 4.5 -- No results for input(s): PROT, ALBUMIN, AST, ALT, ALKPHOS, BILITOT, BILIDIR in the last 168 hours. Recent Labs 07/29/19 2359 INR 1.0 PT 12.1 PTT 34 Recent Labs 07/30/19 0610 07/29/19 2359 TROPONINT 0.06* 0.07* Recent Labs 07/30/19 0610 07/29/19 2359 GLUCOSE 233* 159 Assessment: Patient is a 59 y.o. years old male with PMH significant for DM (Last A1C of 8.6%) who was admittedon 07/29/2019 for multiple injuries due to fall down stairs. Diabetes suboptimally controlled and currently complicated by stress and inflammation of injuries . Currently with variability of blood glucose levels while hospitalized requiring adjustment of insulin regimen and DM medications Will add basal insulin and meal coverage. Continue with q 4 hour correction for dose finding. Plan: 1. Lantus 30 units qd 2. Lispro moderate sliding scale for BG>140 3. Meal-associated Lispro 0-15 units tid ac (or 1unit: 8 gm carb ratio for each meal) senior living diabetes care: Medications - Outpatient treatment regimen recommendations pending based on the hospital course. Monitoring - continue BG tid ac & hs Diet - low fat/low carb diet Exercise - weight-bearing exercise 30 min/day, as tolerated Thank you for allowing us to provide care for your patient Narcisa Guy MAGANA Endocrinology Pager [phone] minutes of this 80 minute visit was spent with the patient in counseling on diabetes and treatment plan, reviewing all glucose and insulin data as well as relevant laboratory results with the patient, and coordination of care on the inpatient unit * Plan of Care - Arleen Younger OT - 07/30/2019 10:45 AM EDT Occupational Therapy Evaluation Patient profile: Maurice Rudolph is a 59 y.o. male withPMHx CAD s/p CABG 2014 on ASA, ESRD, diabetic retinopathy with baseline blindness in RIGHT eye and decreased vision in LEFT eye, admitted on 07/29/2019 s/p fall downstairs. Pt was found to have: LEFT Frontal Contusion RIGHT Parietal Contusion RIGHT C7 TP Fx RIGHT T1-4 TP Fx LEFT L1-2 TP Fx RIGHT Clavicle & Humerus Fx Right 2nd rib fracture Right scapula fracture (nondisplaced) Past Medical History: Diagnosis Date ??? Acute [...] ??? CATARACT REMOVAL 07/18/12 OD [facility] ??? PERIPHERAL IRIDOTOMY 04/06/2012 OD [facility] ??? PRO EXTRACAPSULAR CATARACT RMVL INSERTION IO LENS PROSTH CPLX WO ECP 07/18/2012 ??? PRO EXTRACAPSULAR CATARACT RMVL INSERTION IO LENS PROSTH W/O ECP 11/29/2012 CATARACT EXTRACTION, EXTRACAPSULAR, W/ LENS INSERTION performed by Erasmo Bajwa MD at [facility] ? ? PRO REPAIR COMPLEX RETINA DETACH VITRECTOMY & MEMB PEEL 04/03/2012, 04/03/12 REPAIR COMPLEX RETINAL DETACHMENT, W/ VITRECTOMY, MEMBRANE PEELING performed by Matteo Diane MD at [facility] MAIN OR ? ? PRO REPAIR COMPLEX RETINA DETACH VITRECTOMY & MEMB PEEL 07/31/2012 REPAIR COMPLEX RETINAL DETACHMENT, W/ VITRECTOMY, MEMBRANE PEELING performed by Matteo Diane MD at [facility] MA[facility] OR ? ? PRO REPAIR COMPLEX RETINA DETACH VITRECTOMY & MEMB PEEL 01/08/2013 REPAIR COMPLEX RETINAL DETACHMENT, W/ VITRECTOMY, MEMBRANE PEELING performed by Matteo Diane MD at [facility] MA[facility] OR ??? PRO TX EXTENSIVE [...] CAPSULOTOMY 11/15/2013 OS - Dr Bajwa Social History: Patient lives in [place], [place] with his and son (30 years). Pt's is disabled (wheelchairbound, paralyzed on one side?). Pt is not comfortable with his son assisting with his personal intermediate Setup: 2 level home w/ flight of stairs to his bedroom, only working bathroom is on the 1st level. Pt's sleeps in a room on the first floor, but they do not sleep together. He does not havea recliner at home. Pt's bathroom is handicap accessible w/ a stall shower with a seat and grab bars. He has a grab bar to the right of his toilet (which would not assist him) DME: shower seat, grab bar, hi ranger operator, sockaid, shoe horn Baseline ADL/Mobility: Pt was independent w/ ADL's and IADL's (except driving). He uses a hi ranger operator, sockaid and shoe horn. His son can drive but they don't have a car. He uses public transportation orreceives rides from an organization. He does the cooking and cleaning. He manages his own medications. He ambulates without a device. He reports he watches TV a lot (when asked what he likes to do athome) and reports he can't stand very long because of dizziness and pain (pain from his left side/hip, chronic?). Precautions/Special Considerations: fall, SBP<160, R UE NWB in sling, difficulty airway Subjective: I feel light. (when sitting EOB, BP stable throughout) Objective: Seen today for OT evaluation. Cognitive Status/Behavior: ?? Behavior / Mood: alert and cooperative ?? Alert and oriented to: person, place, time and situation ?? Follows commands: 1 step, 100% of the time and requires increased time ?? Attention: difficulty attending to task/directions, slower to respond, receiving pain medication ?? Safety awareness: grossly functional, but recommend close monitoring ?? Amnesic to events after fall (remembers falling but then remembers waking up in the hospital) Vision & Perception: ?? blind in R eye (diabetic retinopathy), low vision in L eye ?? Wears corrective lenses at baseline (not present) but reports he cannot see much better with them ?? Able to see the clock on the wall accurately (w/ squinting) Communication: WFL Range of motion, strength, coordination: Hand dominance: right UE status: R UE: unable to move shoulder (in sling), able to open/close fingers LE limitations: reporting L hip pain, hip movement is limited by Sensation: denies numbness/tingling in fingers Activities of Daily Living: Self-feeding: assist for setup, cue to use R UE to stabilize items and L to bring to mouth, etc Grooming: assist for setup, seated, will need one-handed techs and possibly dycem Dressing: max A for UB dressing, dependent for LB, uses AE at baseline Bathing: neelima Gurrola, has an extra sling he could use in the shower if needed Toileting: Transfer: CGA Hygiene: not observed, may need a toilet aid Functional Mobility: Supine to sit: to R EOB, HOB elevated, mod A, increased effort Sit to stand: min A Stand pivot to recliner w/ CGA and gait belt, R UE sling in place Stand to sit: CGA, cue for L hand placement Left in the chair w/ tabs alarm in place Balance: Sitting balance: good Standing balance:CGA Vitals: HR: 106-110's, 100% on 1 L but then 93-96% on RA (removed 02, RN aware), BP: 152/68 (89) insupine, 129/97 (103) EOB slightly lightheaded, 146/70 (89) in chair Pain: 5-6/10 R shoulder and L hip Skin: abrasion on top of head, not formally assessed (except did not note bruising on L hip) Education: patient has been educated on Role of occupational therapy/rehabilitation, Transfers, ADL, Positioning, Safety, Precautions/Protocol, Functional Mobility, Balance, Recommendations and Discha rge planning and verbalizes understanding but may benefit from reinforcement. Patient status, treatment, and mobility recommendations discussed with nursing. Assessment: Pt has been seen for occupational therapy evaluation. aMurice Gurrola Rudolph presents with the following performance skill deficits and client factors: increased pain, decreased activity tolerance with dizziness (baseline and exacerbated), decreased flexibility/ROM, decreased strength, body habitus, decreased standing balance, visual deficits (basleine), cognitive deficits (abrasion on top of head, at least concussion), precautions/bracing and compromised mobility status. Given that pt isunable to use his dominant R UE with new concussion/contusion, decreased activity tolerance and impaired balance with limited social support for self-care at home ( unable to assist), pt would benefit from an acute rehab stay. Pt will benefit from further inpatient OT interventions to address performance deficits and maximize participation and independence with occupations of daily living. Equipment needs at discharge: TBD Anticipated Discharge Disposition: inpatient rehabilitation facility Other Recommendations: ?? transfer to recliner chair as appropriate with 1 assist and gait belt w/ L UE sling, ambulate astolerated w/ same ?? Encourage participation in ADL's by providing set up A on tray table and physical assist only asneeded. Other Recommendations: No other consults recommended at this time Goals: To be achieved within 1 week, by 08/06/19: 1. Patient will be min A for LB dressing w/ AE as needed. 2. Patient will be min A for toileting w/ AE as needed. 3. Patient will complete grooming tasks w/ one-handed techniques and dycem/environmental modifications 4. Patient will don his sling w/ min A and be mod A for UB dressing. Plan: OT: Therapy Frequency: 2-3 times/wk Planned OT interventions: Role of occupational therapy/rehabilitation, Transfers, Assistive device/technique, Adaptive equipment training, ADL, Exercise, Breathing exercises, Positioning, Safety, Precautions/Protocol, Functional Mobility, Activity pacing/Energy conservation, Home Management, Balance, Recommendations, Family training and Discharge planning. Total Evaluation Minutes, Occupational Therapy: 43(initial evaluation) 2017 OT Evaluation Code Rationale: ?? Diagnosis & Pertinent Co-Morbidities affecting Plan of Care: see PMHx ?? Occupational Profile & Client History: Brief Expanded Extensive x ?? Assessment of Occupational Performance: 1-3 performance deficits 3-5 performance deficits 5 + performance deficits x ?? Clinical Decision Making: Low Moderate High x Clinical decision making of high complexity using standardized patient assessment instrument and measurable assessment of functional outcome. Pager: [phone] ARLEEN YOUNGER OT 07/30/2019 Occupational Therapy Rehabilitation Department * Initial Assessments - Vesta Ordonez RN - 07/30/2019 9:42 AM EDT Office of Care Management Initial Assessment Vesta Ordonez RN reviewed record and discussed patient with Care Team. Source of Information:Trauma Team, chart review, interviewing patient and their family. Introduced self/reviewed role; services accepted. Reason for Hospitalization: <principal problem not specified> Per H&P note by Dr. Hernandez:59 y.o. Male s/p fall, on 07/30/2019 Maurice Rudolph is a 59 y.o. male presents to [facility] s/p fall. Description of events leading up to injury includes patient was walking up his stairs at home, lost control, and fell down 12 stairs Past Medical History: Diagnosis Date ??? Acute [...] dialysis, with long-term current use of insulin Hospitalizations Within the Past 30 Days: no [facility] admits in last 30 days. Anticipated Length Of Stay (If known): TBD Current Decision-Making Capacity: Patient is A&Ox4 Advance Care Planning: Full Code in [employer]. Lists sister Adriana Lopez( ) as the primary DPOAH and sister Iva Mckeon ( ) as the secondary. Current Coping/Education/Information Needs: Current coping questions and concerns have been addressed. Current Functional Ability: assist of staff Functional Status Prior to Admission: independent with ADL and mobility, ambulates wit vargas cane, does not drive due to poor eye vision (retinopathy), uses magnifier glass. Home Environment: Lives in 2 level house, has bedroom on first and second floor, can stay on first floor in needed, house has a ramp built for spouse. Spouse is wc bound. [address] [facility] [id number] Social & Family Supports/Community Resources: lives with son and spouse. Spouse is wc bound andneeds assistance with ADLs, has home health set up. Son helps as well. Extended Emergency Contact Information Primary Emergency Contact: Kaye Rudolph Relation: Spouse Behavioral Health History: denies Substance Use/Abuse:denies Health/Prescription Coverage: Primary Insurance: MEDICARE Secondary Insurance: N/A Prescription Coverage: Yes Preferred Pharmacy: [id number] [place], [place] - [address] [place] [address] AT [address] OF [address] [address] Other: none Primary Care Provider: Jarad Keller APRN [phone] Patient/Caregiver Goals of Treatment: return to previous level of function Potential Needs for Transition of Care: Discussed with patient and family levels of rehab includingSNF, swing, acute and VNA home health care also discussed. Discussed need to accept first bed available when patient is medically ready. Rehab/SNF: TBD Home Health: would like VNA, ok with [place] [facility] if indicated DME: has a cane Transportation: car by son Other: none Anticipated Barriers to Discharge/Special Considerations: none vs anticipated barriers to arise as hospitalization continues. Assessment: patient is admitted to Trauma service for management of multiple fractures s/p fall at home, discharge needs tbd by hospital course and PT/OT evaluation, would like to have VNA services at home. Plan: A member of the Care Management team will continue to monitor progress, follow for continuityof care and assist with transition of care planning. Vesta Ordonez, PERNELL Nurse Stewarding Supervisor Pager [phone] * Plan of Care - Cynthia Pedroza RN - 07/30/2019 2:39 AM EDT Problem: Patient Care Overview Goal: Plan of Care Review Outcome: Ongoing (Interventions Implemented as Appropriate) 07/30/19 0203 07/30/19 0232 Plan of Care Review Progress -- no change Coping/Psychosocial Plan Of Care Reviewed With patient -- OUTCOME EVALUATION NOTE: OUTCOME SUMMARY: --pt arrived from ED around 0145, flat, log roll, OSH C-collar exchanged for a better fitting vista. Spine cleared at 0400, C Collar removed per orders --Abrasions on RUE covered with mepilexes, dilaudid 0.3 given x2 for RUE pain. PRN tylenol, oxycodone 10mg and fentanyl 50mcg given x1 after 0600. Pt has bruises on RUE. Has small abrasions on bilateral knees --Repeat head CT scheduled for 0800 (got pushed back by CT). --NC 1L, Sinus Tach in 100s-110s with frequent PVC bigeminy. --trending trops, PLAN MOVING FORWARD: --CT of carotids and CT of head at 0800, BMP BID 0800/2000, Q4 BG, Trops q6 due at 0600 and 1200. UA once he urinates (pt oliguric due to HD). INDIVIDUALIZED FALL PREVENTION INTERVENTIONS: Patient-specific fall risk factors per assessment: [current deficits]: Hx falls, bedrest, Assistance [level of assistance required for transfers and ambulation]: Bedrest, log roll, 4 assist Supervision [direct monitoring required during toileting and ADLs]: hands on Surveillance [continuous indirect monitoring]: Hourly rounding, call medeiros within reach at all times, tele, pulse ox Patient-specific fall prevention interventions for sensory deficits provided, if applicable: [X] N/A CPG GOAL OUTCOME EVALUATION: Goal: Fall Prevention-Safe Patient Handling Outcome: Ongoing (Interventions Implemented as Appropriate) 07/30/1919907/30/19231 Daily Care Interventions Self-Care Promotion -- independence encouraged Luna Fall Risk History of Falling 25 -- Secondary Diagnosis 15 -- Ambulatory Aids 0 -- Intravenous Therapy/Heparin/Saline Lock 20 -- Gait/Transferring 0 -- Mental Status 0 -- Score 60 -- OTHER Luna Fall Risk High -- Restraint Interventions Safety Promotion/Fall Prevention activity supervised;nonskid shoes/slippers when out of bed;safety round/check completed -- Positioning Body Position supine, head elevated -- Activity Activity Type bedrest -- Goal: Infection Control Outcome: Ongoing (Interventions Implemented as Appropriate) 07/30/1919907/30/19202 Safety Interventions Isolation Precautions standard precautions maintained -- Infection Prevention barrier precautions utilized -- Coping Strategies Supportive Measures -- active listening utilized;self-care encouraged Goal: Discharge Needs Assessment Outcome: Ongoing (Interventions Implemented as Appropriate) 07/30/19231 Discharge Needs Assessment Concerns To Be Addressed basic needs concerns Readmission Within The Last 30 Days no previous admission in last 30 days Current Health Anticipated Changes Related to Illness inability to care for self Living Environment Transportation Available ambulance Goal: Interdisciplinary Rounds/Family Conf Outcome: Ongoing (Interventions Implemented as Appropriate) 07/30/19 0232 Interdisciplinary Rounds/Family Conf Participants patient;physician;nursing * Consult Note - Aaron Adorno MD - 07/30/2019 12:43 AM EDT Neurosurgery Inpatient Consultation Note Date & Time of Consult: 07/30/2019 12:43 AM Referring Service: trauma Referring Attending: Kimani Kiser MD Neurosurgery Attending: Kain Place of Consult: Trauma bay ID: Name: Maurice Rudolph, 59 y.o. male Admission Date: 07/29/2019 CC: S/p fall HPI: This is a 59 y.o. male with a history of coronary artery disease status post CABG in 2014 who takesa daily aspirin, end-stage renal disease, and diabetic retinopathy who presents after falling down approximately 12 stairs. He was taken to an outside hospital where CT of his head revealed a small left frontal contusion. He was also noted to have fractured right clavicle and right humerus. He was transported to [facility] for further work-up and management. Upon initial neurosurgical evaluation the patient was GCS 15 and hemodynamically stable. He denies any cardiac stents and reports that he takesthe aspirin for his heart disease. He has baseline blindness in his right eye secondary to diabetic retinopathy and has diminished vision in his left eye. Denies headache, nausea, vomiting, weakness, LOC, difficulties with balance, visual or auditory symptoms. Denies bowel or bladder symptoms. PMH: Past Medical History: Diagnosis Date ??? Acute [...] ??? CATARACT REMOVAL 07/18/12 OD [facility] ??? PERIPHERAL IRIDOTOMY 04/06/2012 OD [facility] ??? PRO EXTRACAPSULAR CATARACT RMVL INSERTION IO LENS PROSTH CPLX WO ECP 07/18/2012 ??? PRO EXTRACAPSULAR CATARACT RMVL INSERTION IO LENS PROSTH W/O ECP 11/29/2012 CATARACT EXTRACTION, EXTRACAPSULAR, W/ LENS INSERTION performed by Erasmo Bajwa MD at [facility] OSC ? ? PRO REPAIR COMPLEX RETINA DETACH VITRECTOMY & MEMB PEEL 04/03/2012, 04/03/12 REPAIR COMPLEX RETINAL DETACHMENT, W/ VITRECTOMY, MEMBRANE PEELING performed by Matteo Diane MD at [facility] MAIN OR ? ? PRO REPAIR COMPLEX RETINA DETACH VITRECTOMY & MEMB PEEL 07/31/2012 REPAIR COMPLEX RETINAL DETACHMENT, W/ VITRECTOMY, MEMBRANE PEELING performed by Matteo Diane MD at [facility] MAIN OR ? ? PRO REPAIR COMPLEX RETINA DETACH VITRECTOMY & MEMB PEEL 01/08/2013 REPAIR COMPLEX RETINAL DETACHMENT, W/ VITRECTOMY, MEMBRANE PEELING performed by Matteo Diane MD at [facility] MAIN OR ??? PRO TX EXTENSIVE [...] CAPSULOTOMY 11/15/2013 OS - Dr Bajwa Medications: No current facility-administered medications on file prior to encounter. Current Outpatient Medications on File Prior to Encounter Medication Sig Dispense Refill ??? insulin aspart U-100 (NovoLOG) Solution Inject 76 Units subcutaneously continuous. daily via Vgo insulin pump. ICD 10 Code: E11.319 30 mL 11 ??? V-GO 40 Device Inject 76 Units subcutaneously daily. ICD 10 Code: E11.319 30 Device 5 ??? camphor-menthol (SARNA) Lotion Apply 1 each topically 3 times daily as needed for Itching (leftLE). 222 mL 0 ??? glucagon, Human Recombinant, 1 mg Recon Soln Use in case of emergency for low blood sugar 1 each 5 ??? blood sugar diagnostic strips Strip Use to check blood sugar 3 times daily 200 each 11 ??? aspirin 325 mg Tablet Take 325 [...] Tablet Take 40 mg by mouth daily. Scheduled Meds: ??? levETIRAcetam 1,000 mg Oral Once Or ??? levETIRAcetam 1,000 mg Intravenous Once ??? [START ON 07/31/2019] levETIRAcetam 500 mg Oral 2 times per day Or ??? [START ON 07/31/2019] levETIRAcetam 500 mg Intravenous 2 times per day Continuous Infusions: PRN Meds:.labetalol AND hydrALAZINE, fentaNYL (PF) Allergies: No Known Allergies Family Hx: Family History Problem Relation Age of Onset [...] Hx ??? Heart Disease Neg Hx Social Hx: Social History Socioeconomic History ??? Marital status: Spouse name: None ??? Number of children: None ??? Years of education: None ??? Highest education level: None Occupational History ??? Occupation: unemployed Social Needs ??? Financial resource strain: None ??? Food insecurity Worry: None Inability: None ??? Transportation needs Medical: None Non-medical: None Tobacco Use ??? Smoking status: Former Smoker ??? Smokeless tobacco: Never Used ??? Tobacco comment: quit in his 20's Substance and Sexual Activity ??? Alcohol use: No ??? Drug use: No ??? Sexual activity: None Comment: deferred Lifestyle ??? Physical activity Days per week: None Minutes per session: None ??? Stress: None Relationships ??? Social connections Talks on phone: None Gets together: None Attends samaritan service: None Active member of club or organization: None Attends meetings of clubs or organizations: None Relationship status: None ??? Intimate partner violence Fear of current or ex partner: None Emotionally abused: None Physically abused: None Forced sexual activity: None Other Topics Concern ??? None Social History Narrative ??? None Vitals: Vitals: 07/29/19 2352 07/29/19 2353 07/30/19 0000 07/30/19 0015 BP: (!) 146/111 (!) 141/107 115/74 Pulse: (!) 109 (!) 103 (!) 101 Resp: 23 18 20 SpO2: 99% 99% (!) 87% Physical Exam: -Gen: NAD. Lying flat, full spine precautions -HEENT: Cervical collar. ATNC. No perimastoid or periorbital bruising. No rhinorrhea or otorrhea. -CV: RR -Resp: Breathing non-labored. -GI: S/ND. Benign. -Spine: No midline tenderness, no step-offs. -Neuro: Mental Status/Cognitive: Awake, alert, oriented x3 GCS: 15 Speech: Fluent, appropriate. Naming and repetition intact. Cranial Nerves: L pupil 3mm, R pupil 2mm, minimally reactive CN II - severely decreased visual acuity in right eye> L eye (baseline) CN III, IV, - EOMI CN V - Sensation intact in V1,2 and 3 distributions CN VII - No facial asymmetry/droop CN VIII - Intact hearing bilaterally to finger rub CN IX, X - Palate and uvula midline CN XI - Trapezius 5/5 bilat CN XII - Tongue midline Tone: Normal Power: No pronator drift Segment Muscle Action Left Right C5 Deltoid Shoulder Abduction 5 * C6 Biceps Elbow flexion 5 * C6 Extensor carpi radialis Wrist extension 5 5 C7 Triceps Elbow extension 5 * C8 Finger flexors Grasp 5 5 T1 Interossei Finger abduction 5 5 L2 Iliopsoas Hip flexion 5 5 L3 Quadriceps Knee extension 5 5 L4 Tibialis anterior Dorsiflexion 5 5 L5 Extensor hallucis Great toe extension 5 5 S1 Gastrocnemius Plantar flexion 5 5 *pain limited Reflexes: Reflex Left Right Biceps 2+ 2+ Triceps 2+ 2+ BR 2+ 2+ Patellar 2+ 2+ Ankle jerk 1+ 1+ Plantar response Downgoing Downgoing Gait: Not assessed Sensation in the extremities: Peripheral neuropathy 2/2 diabetes in BLLE, otherwise Light touch: Intact x 4 Cerebellar exam: No dysmetria or dysdiadochokinesia No intention tremor Labs: Recent Labs 07/29/19 2359 WBC 11.3* HGB 10.9* PLATELET 135* Recent Labs 07/29/19 2359 NA 136 K 3.9 CL 93* CO2 31 BUN 34* CREATININE 4.59* Recent Labs 07/29/19 2359 PT 12.1 INR 1.0 Imaging: CT head and cervical spine 07/29/2019: Small left frontal traumatic contusion. Evidence of prior right basal ganglia infarction. No apparent fracture in the cervical spine Assessment: This is a 59 y.o. male with a history of prior CABG who takes daily aspirin, end-stage renal disease, and diabetic retinopathy who presents after falling down a flight of stairs with a left frontal contusion. No indication for acute neurosurgical intervention at this time. Problem List: Left frontal traumatic intraparenchymal hematoma Right clavicular fracture Right humerus fracture Diabetic retinopathy Coronary artery disease End-stage renal disease Plan: -Close neurological observation, Q2H Neuro Checks -Imaging: [facility] at 0400 -BP control, keep SBP<160 -Hold anticoagulation -Keppra fo seizure ppx -SCDs for DVT ppx -GI prophylaxis Aaron Adorno MD Associated attestation - Louis Finnegan MD - 07/31/2019 10:43 AM EDT I have seen the patient and reviewed the resident's above history and I agree with the details as written. The assessment and plan were formulated in discussion with me and I agree with them as documented. Pertinent History: 59 male CCT Pertinent Exam: nonfocal Major issues addressed: CCT - nonoperative Plan: supportive care * Consult Note - Toni Maya MD - 07/30/2019 12:36 AM EDT ORTHOPAEDIC SURGERY CONSULT NOTE ATTENDING: Ursula Maurice Rudolph is a 59 y.o. male who presents to see us in consultation today at the request of Kimani Kiser MD. PAGED:12:20am SEEN:12:21am CHIEF COMPLAINT: Fall down stairs with right proximal humerus and right clavicle fracture HPI: Maurice Rudolph is a 59 y.o. male with hx of coronary artery disease status post 3 artery bypass and 2015, type 2 diabetes mellitus, end-stage renal disease on hemodialysis who was walking downhis stairs at his home earlier today in [place] when he had a mechanical fall and went down roughly 14 stairs. He did have loss of consciousness, he did not ambulate after the injury. He was taken to [facility] where he was evaluated and found to have a right minimally displaced greater tuberosity fracture, a right nondisplaced clavicle fracture, and a right nondisplaced scapular fracture along with an intraparenchymal hemorrhage, multiple rib fractures on the right. He was subsequently transferred to [facility] for further evaluation and management. Orthopedics was consulted for evaluation recommendations of the above-mentioned fractures. the patient denies CP/SOB/N/V/F/C/Numbness/Tingling. FOCUSED REVIEW OF SYSTEMS: as above. There are no hospital problems to display for this patient. Active Non-Hospital Problems Diagnosis ??? Cellulitis ??? Pre-transplant evaluation for kidney [...] disease) ??? Proliferative diabetic retinopathy, both eyes FAMILY HISTORY: Negative for bleeding/clotting disorders or anesthetic complications. SOCIAL HISTORY: Social History Tobacco Use Smoking Status Former Smoker Smokeless Tobacco Never Used Tobacco Comment quit in his 20's Social History Substance and Sexual Activity Alcohol Use No Illicits: Denies Employment: On disability since 2011 [facility]S: ??? levETIRAcetam (Keppra) tablet 1,000 mg OR levETIRAcetam (KEPPRA) 1,000 mg in sodium chloride (ISO-OSM) 100 mL ??? [START ON 07/31/2019] levETIRAcetam (Keppra) tablet 500 mg OR [START ON 07/31/2019] levETIRAcetam (KEPPRA) 500 mg in sodium chloride 0.82% 100 mL ??? labetalol (NORMODYNE,TRANDATE) injection 10-20 mg AND hydrALAZINE (APRESOLINE) injection 10mg ??? fentaNYL (PF) 50mcg/mL injection ??? insulin aspart U-100 (NovoLOG) Solution ??? V-GO 40 Device ??? camphor-menthol (SARNA) Lotion ??? glucagon, Human Recombinant, 1 mg Recon Soln ??? blood sugar diagnostic strips Strip ??? aspirin 325 mg Tablet ??? losartan (COZAAR) 50 mg Tablet ??? loratadine (CLARITIN) 10 mg Tablet ??? bumetanide (BUMEX) 1 mg Tablet ??? tamsulosin (FLOMAX) 0.4 mg Capsule ??? B Complex-Vitamin C-Folic Acid (NEPHROCAP) 1 mg Capsule ??? gabapentin (NEURONTIN) 300 mg capsule ??? sertraline (ZOLOFT) 25 mg tablet ??? pravastatin (PRAVACHOL) 40 mg Tablet OBJECTIVE: Heart Rate: [101-109] Resp: [18-23] BP: (115-146)/(74-111) No intake or output data in the 24 hours ending 07/30/19 0036 There is no height or weight on file to calculate BMI. PHYSICAL EXAM: Gen: NAD, resting comfortably, AOx3 HEENT: NC, AT CV: RRR w/ no R/M/G Pulm: LCTAB Skin: Intact Psych: Nl mood and affect Left Upper Extremity Exam: No TTP clavicle, shoulder, humerus, elbow, forearm, wrist, hand Painless range of motion of shoulder / elbow / wrist / fingers No effusion in shoulder / elbow / wrist No ecchymosis, erythema, or overlying skin changes. Compartments soft and compressible. Sensation intact to light touch in Ax/M/R/U/LABC/MABC distributions Motor intact (5/5) shoulder abduction, elbow flexion/extension, wrist flexion/extension, admission nurse coordinator, EPL,AIN, IO Brisk capillary refill distally 2+ radial pulse Right Upper Extremity Exam: Tenderness palpation about the right shoulder and clavicle, there is some ecchymosis over the medial aspect of the proximal arm, there are multiple abrasions in the posterior aspect of the arm and forearm. The patient does have intact elbow flexion extension although this is limited secondary to pain. He is unable to range the shoulder secondary to pain. No TTP humerus, elbow, forearm, wrist, hand Painless range of motion of wrist / fingers No effusion in shoulder / elbow / wrist No ecchymosis, erythema, or overlying skin changes except as mentioned above. Compartments soft and compressible. Sensation intact to light touch in Ax/M/R/U/LABC/MABC distributions Motor intact (5/5) elbow flexion/extension, wrist flexion/extension, admission nurse coordinator, EPL, AIN, IO Brisk capillary refill distally 2+ radial pulse Left Lower Extremity Exam: No TTP pelvis, hip, femur, knee, tib/fib, ankle, foot Painless range of motion of Hip / knee / ankle No effusion in knee / ankle No ecchymosis, erythema, or overlying skin changes except a small superficial scrape on his left knee. Compartments soft and compressible. Sensation intact to light touch in Saphenous/Sural/LFC/Femoral/MP/LP/T/DP/SP distributions, there is some diminished sensation in a stocking distribution consistent with his peripheral neuropathy Motor intact hip flexion/extension, knee flexion/extension, ankle flexion/extension, EHL/FHL Brisk capillary refill distally 2+ DP/PT pulses Right Lower Extremity Exam: No TTP pelvis, hip, femur, knee, tib/fib, ankle, foot Painless range of motion of Hip / knee / ankle No effusion in knee / ankle No ecchymosis, erythema, or overlying skin changes except a small superficial scrape above his knee. Compartments soft and compressible. Sensation intact to light touch in Saphenous/Sural/LFC/Femoral/MP/LP/T/DP/SP distributions, there is some diminished sensation in a stocking distribution consistent with his peripheral neuropathy Motor intact hip flexion/extension, knee flexion/extension, ankle flexion/extension, EHL/FHL Brisk capillary refill distally 2+ DP/PT pulses LABS: Last wbc, hgb, hct plt Recent Labs 07/29/19 2359 WBC 11.3* HGB 10.9* HCT 32.1* IMAGING: X-rays and CT demonstrate a minimally displaced right greater tuberosity fracture of the proximal humerus, as well as a nondisplaced clavicle fracture on the ipsilateral side. There is a read of a potential scapular fracture, I do not see any tati fracture on evaluation of the CT scan ASSESSMENT/RECOMMENDATIONS: 59 y.o. male who presents with right minimally displaced greater tuberosity fracture consistent with a 2 part proximal humerus fracture, a right nondisplaced clavicle fracture, and a right nondisplaced scapular body fracture. Recommend the patient obtain additional rightelbow x-ray as well as a dedicated clavicle film of the right clavicle. The patient will be nonweightbearing of the right upper extremity in a sling. These fractures will likely be treated nonoperatively, however, I would have the patient be n.p.o. in case he requires surgical intervention after discussion during morning rounds. - Activity-nonweightbearing right upper extremity in sling - DVT prophylaxis-per primary, recommend Lovenox - Antibiotics: None - Diet -n.p.o. - Imaging [id number] right clavicle, x-ray right elbow - Discuss with Dr. Vergara I have contacted the referring team and discussed our evaluation and recommendations as listed above. The orthopaedic service will continue to follow this patient. Thank you for the opportunity to assist in their evaluation and treatment. Please page Orthopaedic consults ([phone]) with any questions or concerns. Toni Maya MD P. [phone] 07/30/19 12:36 AM Future Appointments Date Time Provider Department Center 08/29/2019 2:30 PM Ceasar Roy MD [facility] ENDO [facility] 10/12/2019 2:30 PM Harmeet Arvizu MD [facility] OPHT 4B [facility] documented in this encounter Plan of Treatment Not on file documented as of this encounter Procedures Procedure Name Priority Date/Time Associated Diagnosis Comments POCT GLUCOSE Routine 08/04/2019 12:59 PM EDT POCT GLUCOSE Routine 08/04/2019 11:34 AM EDT POCT GLUCOSE Routine 08/04/2019 7:35 AM EDT POCT GLUCOSE Routine 08/04/2019 3:54 AM EDT POCT GLUCOSE Routine 08/03/2019 11:47 PM EDT POCT GLUCOSE Routine 08/03/2019 7:50 PM EDT POCT GLUCOSE Routine 08/03/2019 3:37 PM EDT POCT GLUCOSE Routine 08/03/2019 11:46 AM EDT POCT GLUCOSE Routine 08/03/2019 8:50 AM EDT HEMOGRAM Routine 08/03/2019 7:15 AM EDT DIFFERENTIAL, AUTOMATED Routine 08/03/2019 7:15 AM EDT HC VENIPUNCTURE Routine 08/03/2019 7:15 AM EDT COMPREHENSIVE METABOLIC PANEL Routine 08/03/2019 7:15 AM EDT HC VENIPUNCTURE Routine 08/03/2019 7:14 AM EDT POCT GLUCOSE Routine 08/03/2019 4:58 AM EDT POCT GLUCOSE Routine 08/02/2019 11:32 PM EDT POCT GLUCOSE Routine 08/02/2019 7:36 PM EDT POCT GLUCOSE Routine 08/02/2019 4:02 PM EDT POCT GLUCOSE Routine 08/02/2019 1:22 PM EDT CMP W/FASTING GLUCOSE STAT 08/02/2019 6:42 AM EDT POCT GLUCOSE Routine 08/02/2019 6:33 AM EDT POCT GLUCOSE Routine 08/02/2019 4:16 AM EDT POCT GLUCOSE Routine 08/01/2019 11:57 PM EDT POCT GLUCOSE Routine 08/01/2019 7:18 PM EDT POCT GLUCOSE Routine 08/01/2019 4:21 PM EDT POCT GLUCOSE Routine 08/01/2019 12:32 PM EDT POCT GLUCOSE Routine 08/01/2019 8:22 AM EDT HEMOGRAM Routine 08/01/2019 6:25 AM EDT DIFFERENTIAL, AUTOMATED Routine 08/01/2019 6:25 AM EDT HC CBC,PLT & AUTO DIFF Routine 0 6:25 AM EDT HC TROPONIN T STAT 08/01/2019 6:25 AM EDT COMPREHENSIVE METABOLIC PANEL Routine 08/01/2019 6:25 AM EDT POCT GLUCOSE Routine 08/01/2019 3:43 AM EDT POCT GLUCOSE Routine 07/31/2019 11:33 PM EDT POCT GLUCOSE Routine 07/31/2019 7:54 PM EDT POCT GLUCOSE Routine 07/31/2019 4:04 PM EDT HC TROPONIN T STAT 07/31/2019 3:30 PM EDT EKG 12-LEAD STAT 07/31/2019 3:10 PM EDT Troponin level elevated ECHO COMPLETE W CONTRAST Routine 07/31/2019 2:25 PM EDT Fall, initial encounter POCT GLUCOSE Routine 07/31/2019 1:13 PM EDT POCT GLUCOSE Routine 07/31/2019 7:44 AM EDT EKG 12-LEAD STAT 07/31/2019 5:49 AM EDT Troponin level elevated HEMOGRAM Routine 07/31/2019 4:20 AM EDT DIFFERENTIAL, AUTOMATED Routine 07/31/2019 4:20 AM EDT HC CBC,PLT & AUTO DIFF Routine 0 4:20 AM EDT HC TROPONIN T Timed 07/31/2019 4:20 AM EDT HC MAGNESIUM, SERUM Routine 07/31/2019 4 :20 AM EDT BASIC METABOLIC PANEL Routine 07/31/2019 4:20 AM EDT POCT GLUCOSE Routine 07/31/2019 4:08 AM EDT POCT GLUCOSE Routine 07/30/2019 10:52 PM EDT POCT GLUCOSE Routine 07/30/2019 7:29 PM EDT HC TROPONIN T STAT 07/30/2019 6:10 PM EDT POCT GLUCOSE Routine 07/30/2019 4:13 PM EDT POCT GLUCOSE Routine 07/30/2019 1:18 PM EDT HC TROPONIN T STAT 07/30/2019 12:30 PM EDT XR SHOULDER RIGHT Routine 07/30/2019 12: 23 PM EDT Closed fracture of right scapula, unspecified part of scapula, initial encounter Closed nondisplaced fracture of shaft of right clavicle, initial encounter Closed fracture of proximal end of right humerus, unspecified fracture morphology, initial encounter XR CLAVICLE RIGHT Routine 07/30/2019 12: 23 PM EDT Closed fracture of right scapula, unspecified part of scapula, initial encounter Closed nondisplaced fracture of shaft of right clavicle, initial encounter Closed fracture of proximal end of right humerus, unspecified fracture morphology, initial encounter XR THORACIC SPINE 2 VIEW INCLUDING SWIMMERS VIEW Routine 07/30/2019 12:23 PM EDT XR CHEST PA AND LATERAL Timed 07/30/2019 12:23 PM EDT XR CERVICAL SPINE 2 OR 3 VIEWS Routine 07/30/2019 12:23 PM EDT POCT GLUCOSE Routine 07/30/2019 12:18 PM EDT POCT GLUCOSE Routine 07/30/2019 10:02 AM EDT EKG 12-LEAD Routine 07/30/2019 8:59 AM EDT Fall, initial encounter POCT GLUCOSE Routine 07/30/2019 8:[address] CAROTIDS W CONTRAST STAT 0 8:[address] HEAD WO CONTRAST (GENERIC) Routine 07/30/2019 8:04 AM EDT HC TROPONIN T STAT 07/30/2019 6:10 AM EDT HC PHOSPHORUS, SERUM Routine 07/30/2019 6:10 AM EDT HC MAGNESIUM, SERUM Routine 07/30/2019 6 :10 AM EDT BASIC METABOLIC PANEL STAT 07/30/2019 6:10 AM EDT POCT GLUCOSE Routine 07/30/2019 1:38 AM EDT XR ELBOW 3 VIEWS RIGHT (GENERIC) STAT 07/30/2019 1:25 AM EDT XR CLAVICLE RIGHT STAT 07/30/2019 1:0 0 AM EDT EKG 12-LEAD STAT 07/30/2019 12:51 AM EDT Fall, initial encounter REQUEST FOR 2ND READ CT CHEST ABDOMEN PELVIS STAT 07/30/2019 12:21 AM EDT REQUEST FOR 2ND READ CT HEAD AND SPINE STAT 07/30/2019 12:21 AM EDT XR CHEST ONE VIEW STAT 07/30/2019 12: 05 AM EDT ABORH RECHECK STATUS STAT 07/29/2019 11:59 PM EDT L-LACTATE2 WHOLE BLOOD Routine 0 11:59 PM EDT HEMOGRAM STAT 07/29/2019 11:59 PM EDT DIFFERENTIAL, AUTOMATED STAT 07/29/2019 11:59 PM EDT GOLD TUBE HOLD STAT 07/29/2019 11:59 PM EDT ABO/RH TYPING STAT 07/29/2019 11:59 PM EDT HC PARTIAL THROMBOPLASTIN TIME STAT 07/29/2019 11:59 PM EDT HC PROTHROMBIN TIME STAT 07/29/2019 1 1:59 PM EDT HC CBC,PLT & AUTO DIFF STAT 0 11:59 PM EDT ANTIBODY SCREEN STAT 07/29/2019 11:59 PM EDT HC ABO-MICROTITER STAT 07/29/2019 11: 59 PM EDT TROPONIN STAT 07/29/2019 11:59 PM EDT HEMOGLOBIN A1C STAT 07/29/2019 11:59 PM EDT HC ALCOHOL, BLOOD STAT 07/29/2019 11: 59 PM EDT BASIC METABOLIC PANEL STAT 07/29/2019 11:59 PM EDT FILM LIBRARY STORAGE ONLY DX UPPER EXTREMITY STAT 07/29/2019 10:14 PM EDT FILM LIBRARY STORAGE ONLY DX HIP STAT 07/29/2019 10:12 PM EDT FILM LIBRARY STORAGE ONLY DX SHOULDER STAT 07/29/2019 10:11 PM EDT documented in this encounter Results * POCT Glucose (08/04/2019 12:59 PM EDT) Glucose, POC 97 65 - 199 mg/dL [facility] Comment: Supplemental ranges: <140 mg/dL before meals <180 mg/dL all other times of the day Blood specimen (specimen) 08/04/2019 12:59 PM EDT 08/04/2019 12:59 PM EDT Eliot Cohen MD POINT OF CARE TEST O RDERABLES [facility] [place] [address] * POCT Glucose (08/04/2019 11:34 AM EDT) Glucose, POC 105 65 - 199 mg/dL [facility] Comment: Supplemental ranges: <140 mg/dL before meals <180 mg/dL all other times of the day Blood specimen (specimen) 08/04/2019 11:34 AM EDT 08/04/2019 11:34 AM EDT Eliot Cohen MD POINT OF CARE TEST O RDERAROSIE [facility] [place] [address] * POCT Glucose (08/04/2019 7:35 AM EDT) Glucose, POC 140 65 - 199 mg/dL [facility] Comment: Supplemental ranges: <140 mg/dL before meals <180 mg/dL all other times of the day Blood specimen (specimen) 08/04/2019 7:35 AM EDT 08/04/2019 7:35 AM EDT Eliot Cohen MD POINT OF CARE TEST O FREDERICKERAROSIE Performing Organization Address City/[facility]/ZIP Co de Phone Number [facility] [place] [address] * POCT Glucose (08/04/2019 3:54 AM EDT) Glucose, POC 125 65 - 199 mg/dL [facility] Comment: Supplemental ranges: <140 mg/dL before meals <180 mg/dL all other times of the day Blood specimen (specimen) 08/04/2019 3:54 AM EDT 08/04/2019 3:54 AM EDT Eliot Cohen MD POINT OF CARE TEST O RDERAROSIE [facility] [place] [address] * POCT Glucose (08/03/2019 11:47 PM EDT) Glucose, POC 135 65 - 199 mg/dL [facility] Comment: Supplemental ranges: <140 mg/dL before meals <180 mg/dL all other times of the day Blood specimen (specimen) 08/03/2019 11:47 PM EDT 08/03/2019 11:47 PM EDT Eliot Coehn MD POINT OF CARE TEST O ANTONETTE [facility] [place] [address] * POCT Glucose (08/03/2019 7:50 PM EDT) Glucose, POC 184 65 - 199 mg/dL [facility] Comment: Supplemental ranges: <140 mg/dL before meals <180 mg/dL all other times of the day Blood specimen (specimen) 08/03/2019 7:50 PM EDT 08/03/2019 7:50 PM EDT Eliot Cohen MD POINT OF CARE TEST O ANTONETTE Performing Organization Address [facility]/ZIP Co de Phone Number [facility] [place] [address] * POCT Glucose (08/03/2019 3:37 PM EDT) Glucose, POC 175 65 - 199 mg/dL [facility] Comment: Supplemental ranges: <140 mg/dL before meals <180 mg/dL all other times of the day Blood specimen (specimen) 08/03/2019 3:37 PM EDT 08/03/2019 3:37 PM EDT Eliot Cohen MD POINT OF CARE TEST O ANTONETTE [facility] [place] [address] * POCT Glucose (08/03/2019 11:46 AM EDT) Glucose, POC 155 65 - 199 mg/dL [facility] Comment: Supplemental ranges: <140 mg/dL before meals <180 mg/dL all other times of the day Blood specimen (specimen) 08/03/2019 11:46 AM EDT 08/03/2019 11:46 AM EDT Eliot Cohen MD POINT OF CARE TEST O RDERAROSIE Performing Organization Address City/[facility] Co de Phone Number [facility] [place] [address] * POCT Glucose (08/03/2019 8:50 AM EDT) [facility] Glucose, POC 156 65 - 199 mg/dL [facility] Comment: Supplemental ranges: <140 mg/dL before meals <180 mg/dL all other times of the day Blood specimen (specimen) 08/03/2019 8:50 AM EDT 08/03/2019 8:50 AM EDT Eliot Cohen MD POINT OF CARE TEST O RDERAROSIE Performing Organization Address [facility] de Phone Number [facility] [place] [address] * (ABNORMAL) Differential, Automated (08/03/2019 7:15 AM EDT) [facility] Neutrophil % 76.7 % [facility] Neutrophil Absolute 4.50 1.70 - 6.10 x10(3)/mc L [facility] Lymph % 8.9 % [facility] Lymphocytes Abs 0.5(L) 0.9 - 3.2 x10(3)/mc L [facility] Monocyte % 10.7 % [facility] Monocyte Abs 0.6 0.3 - 0.9 x10(3)/mc L [facility] Eos % 2.0 % [facility] Eosinophils Abs 0.1 0.0 - 0.4 x10(3)/mc L [facility] Basophil % 0.7 % [facility] Baso Absolute 0.0 0.0 - 0.1 x10(3)/[facility] Immature Gran % 1.00 % [facility] Comment: Immature granulocytes(IG's)percentage and absolute count will include metamyelocytes, myelocytes, and promyelocytes. Blood smears from CBCs yielding IG's will be scanned manually for concordance. If this scan disagrees with the automated IG or if promyelocytes are noted, a manual differential will be performed. Immature Gran Absolute 0.06(H) 0.00 - 0.04 x10(3)/[facility] Blood specimen (specimen) 08/03/2019 7:15 AM EDT 08/03/2019 7:24 AM EDT Narrative Resulting Agency Comment Spec In Lab Sandhya August APRN HEMATOLOGY JAY BEVERLY Performing Organization Address City/State/[facility] Co de Phone Number [facility] [address] * (ABNORMAL) Hemogram (08/03/2019 7:15 AM EDT) White Blood Cell 5.9 4.0 - 9.5 x10(3)/[facility] Red Blood Cell 3.01(L) 4.58 - 5.54 x10(6)/[facility] Hemoglobin 9.6(L) 13.7 - 16.5 gm/dL [facility] Hematocrit 29.8(L) 40.5 - 48.5 % [facility] Mean Cell Volume 99.0(H) 82.9 - 93.1 fL [facility] Mean Cell Hemoglobin 31.9 27.5 - 32.1 pg [facility] Mean Cell Hemoglobin Concentration 32.2 32.0 - 35.7 gm/dL [facility] Platelet 153 145 - 357 x10(3)/[facility] RDW Standard Deviation 53.1(H) 36.0 - 45.0 fL [facility] RDW coefficient of variation 14.9(H) 11.4 - 13.8 % [facility] Mean Platelet Volume 9.8 7.6 - 12.9 fL [facility] NRBC% auto 0.0 % [facility] NRBC Absolute 0.000 0.000 - 0.000 x10(3)/mc L [facility] Blood specimen (specimen) 08/03/2019 7:15 AM EDT 08/03/2019 7:24 AM EDT Narrative Resulting Agency Comment Spec In Lab Sandhya August APRN HEMATOLOGY JAY BEVERLY [facility] [place] [address] * (ABNORMAL) Comprehensive metabolic panel (non-fasting) (08/03/2019 7:15 AM EDT) Glucose 140 65 - 199 mg/dL [facility] Comment:Diabetes: >=200 mg/d L plus symptoms Blood Urea Nitrogen 43(H) 10 - 20 mg/dL [facility] Creatinine 5.44(H) 0.80 - 1.50 mg/dL [facility] Sodium 132(L) 135 - 145 mmol/L [facility] Potassium 4.3 3.5 - 5.0 mmol/L [facility] Comment: Please note: ??Patients with WBC >100,000 may have falsely elevated Potassium levels. ??For accurate Potassium quantification in these patients send serum separator tube (gold top) for subsequent determinations. ??Contact the Clinical Chemistry Laboratory if there are any questions. Chloride 89(L) 98 - 107 mmol/L [facility] Carbon Dioxide 27 22 - 31 mmol/L [facility] Anion Gap 16(H) 5 - 15 mmol/L [facility] Calcium 8.9 8.5 - 10.5 mg/dL [facility] Protein, Total 8.3(H) 6.1 - 8.0 gm/dL [facility] Albumin 3.7 3.2 - 5.2 gm/dL [facility] Aspartate Aminotransferase 21 0 - 39 unit/L [facility] Alanine Aminotransferase 20 0 - 55 unit/L [facility] Alkaline Phosphatase 96 40 - 130 unit/L [facility] Bilirubin, Total 0.5 0.2 - 1.3 mg/dL [facility] Est Glomerular Filtration Rate 11(L) >=60 mL/min/1. 73 m?? [facility] Comment: The eGFR was calculated using the CKD-EPI equation. As with all creatinine based estimates of kidney function, eGFR values calculated with the CKD-EPI equation are not accurate in patients with acute kidney failure, extremes of body mass or the acutely ill. [email or web address] eGFR 12(L) >=60 mL/min/1. 73 m?? [facility] Comment: The eGFR was calculated using the CKD-EPI equation. As with all creatinine based estimates of kidney function, eGFR values calculated with the CKD-EPI equation are not accurate in patients with acute kidney failure, extremes of body mass or the acutely ill. [email or web address] Blood specimen (specimen) 08/03/2019 7:15 AM EDT 08/03/2019 7:24 AM EDT Narrative Resulting Agency Comment Spec In Lab Sandhya August TRUST CLERK CHEMISTRY ORDER ROBBIE [facility] [address] * Ammonia (08/03/2019 7:14 AM EDT) Ammonia 16 16 - 60 mcmol/L [facility] Blood specimen (specimen) 08/03/2019 7:14 AM EDT 08/03/2019 7:21 AM EDT Narrative Resulting Agency Comment Spec In Lab Sandhya August TRUST CLERK CHEMISTRY ORDER ROBBIE Performing Organization Address City/[facility]/ZIP Co de Phone Number [facility] [place] [address] * POCT Glucose (08/03/2019 4:58 AM EDT) Glucose, POC 156 65 - 199 mg/dL [facility] Comment: Supplemental ranges: <140 mg/dL before meals <180 mg/dL all other times of the day Blood specimen (specimen) 08/03/2019 4:58 AM EDT 08/03/2019 4:58 AM EDT Eliot Cohen MD POINT OF CARE TEST O ANTONETTE Performing Organization Address City/[facility]/ZIP Co de Phone Number [facility] [address] * POCT Glucose (08/02/2019 11:32 PM EDT) Glucose, POC 139 65 - 199 mg/dL [facility] Comment: Supplemental ranges: <140 mg/dL before meals <180 mg/dL all other times of the day Blood specimen (specimen) 08/02/2019 11:32 PM EDT 08/02/2019 11:32 PM EDT Eliot Cohen MD POINT OF CARE TEST O ANTONETTE Performing Organization Address City/[facility]/ZIP Co de Phone Number [facility] [address] * POCT Glucose (08/02/2019 7:36 PM EDT) Glucose, POC 150 65 - 199 mg/dL [facility] Comment: Supplemental ranges: <140 mg/dL before meals <180 mg/dL all other times of the day Blood specimen (specimen) 08/02/2019 7:36 PM EDT 08/02/2019 7:36 PM EDT Eliot Cohen MD POINT OF CARE TEST O RDERABLES Performing Organization Address [facility] de Phone Number [facility] [place] [address] * POCT Glucose (08/02/2019 4:02 PM EDT) Glucose, POC 183 65 - 199 mg/dL [facility] Comment: Supplemental ranges: <140 mg/dL before meals <180 mg/dL all other times of the day Blood specimen (specimen) 08/02/2019 4:02 PM EDT 08/02/2019 4:02 PM EDT Eliot Cohen MD POINT OF CARE TEST O RDERAROSIE Performing Organization Address [facility] de Phone Number [facility] [place] [address] * POCT Glucose (08/02/2019 1:22 PM EDT) Glucose, POC 161 65 - 199 mg/dL [facility] Comment: Supplemental ranges: <140 mg/dL before meals <180 mg/dL all other times of the day Blood specimen (specimen) 08/02/2019 1:22 PM EDT 08/02/2019 1:22 PM EDT Eliot Cohen MD POINT OF CARE TEST O RDERABLES Performing Organization Address [facility] de Phone Number [facility] [place] [address] * (ABNORMAL) CMP w/fasting Glucose (08/02/2019 6:42 AM EDT) Glucose Fasting 156(H) 65 - 99 mg/dL [facility] Comment: ?Fasting* Glucose Interpretive Criteria Normal ?65-99 mg/dL Impaired Fasting glucose ?100-125 mg/dL Consistent with Diabetes Mellitus ? >or= 126 mg/dL *Fasting is defined as no caloric intake for at least 8 hours In the absence of unequivocal hyperglycemia a plasma glucose value of >or= 126 mg/dL should be repeated on a subsequent day. Diagnosis and Classification of Diabetes Mellitus, Position Statement from the [employer]. ??Diabetes Care, Volume 33, Supplement 1, May 2009 Blood Urea Nitrogen 50(H) 10 - 20 mg/dL [facility] Creatinine 7.35(H) 0.80 - 1.50 mg/dL [facility] Comment:result rechecked-ms Sodium 130(L) 135 - 145 mmol/L [facility] Potassium 4.7 3.5 - 5.0 mmol/L [facility] Comment: Please note: ??Patients with WBC >100,000 may have falsely elevated Potassium levels. ??For accurate Potassium quantification in these patients send serum separator tube (gold top) for subsequent determinations. ??Contact the Clinical Chemistry Laboratory if there are any questions. Chloride 88(L) 98 - 107 mmol/L [facility] Carbon Dioxide 26 22 - 31 mmol/L [facility] Anion Gap 16(H) 5 - 15 mmol/L [facility] Calcium 8.6 8.5 - 10.5 mg/dL [facility] Protein, Total 7.6 6.1 - 8.0 gm/dL [facility] Albumin 3.6 3.2 - 5.2 gm/dL [facility] Aspartate Aminotransferase 22 0 - 39 unit/L [facility] Alanine Aminotransferase 22 0 - 55 unit/L [facility] Alkaline Phosphatase 86 40 - 130 unit/L [facility] Bilirubin, Total 0.6 0.2 - 1.3 mg/dL [facility] Est Glomerular Filtration Rate 7(L) >=60 mL/min/1. 73 m?? [facility] Comment: The eGFR was calculated using the CKD-EPI equation. As with all creatinine based estimates of kidney function, eGFR values calculated with the CKD-EPI equation are not accurate in patients with acute kidney failure, extremes of body mass or the acutely ill. [email or web address] eGFR 8(L) >=60 mL/min/1. 73 m?? [facility] Comment: The eGFR was calculated using the CKD-EPI equation. As with all creatinine based estimates of kidney function, eGFR values calculated with the CKD-EPI equation are not accurate in patients with acute kidney failure, extremes of body mass or the acutely ill. [email or web address] Blood specimen (specimen) 08/02/2019 6:42 AM EDT 08/02/2019 6:48 AM EDT Narrative Resulting Agency Comment Spec In Lab Sandhya August APRN CHEMISTRY ORDER ROBBIE Performing Organization Address [facility] Co de Phone Number [facility] [place] [address] * POCT Glucose (08/02/2019 6:33 AM EDT) Glucose, POC 155 65 - 199 mg/dL [facility] Comment: Supplemental ranges: <140 mg/dL before meals <180 mg/dL all other times of the day Blood specimen (specimen) 08/02/2019 6:33 AM EDT 08/02/2019 6:33 AM EDT Eliot Cohen MD POINT OF CARE TEST O RDERABLES Performing Organization Address City/[facility]/ZIP Co de Phone Number [facility] [place] [address] * POCT Glucose (08/02/2019 4:16 AM EDT) Glucose, POC 132 65 - 199 mg/dL [facility] Comment: Supplemental ranges: <140 mg/dL before meals <180 mg/dL all other times of the day Blood specimen (specimen) 08/02/2019 4:16 AM EDT 08/02/2019 4:16 AM EDT Eliot Cohen MD POINT OF CARE TEST O RDERABLES [facility] [place] [address] * POCT Glucose (08/01/2019 11:57 PM EDT) Glucose, POC 181 65 - 199 mg/dL [facility] Comment: Supplemental ranges: <140 mg/dL before meals <180 mg/dL all other times of the day Blood specimen (specimen) 08/01/2019 11:57 PM EDT 08/01/2019 11:57 PM EDT Eliot Cohen MD POINT OF CARE TEST O RDERABLES Performing Organization Address City/[facility]/ZIP Co de Phone Number [facility] [place] [address] * POCT Glucose (08/01/2019 7:18 PM EDT) Glucose, POC 183 65 - 199 mg/dL [facility] Comment: Supplemental ranges: <140 mg/dL before meals <180 mg/dL all other times of the day Blood specimen (specimen) 08/01/2019 7:18 PM EDT 08/01/2019 7:18 PM EDT Eliot Cohen MD POINT OF CARE TEST O RDERABLES [facility] [place] [address] * (ABNORMAL) POCT Glucose (08/01/2019 4:21 PM EDT) Glucose, POC 224(H) 65 - 199 mg/dL [facility] Comment: Supplemental ranges: <140 mg/dL before meals <180 mg/dL all other times of the day Blood specimen (specimen) 08/01/2019 4:21 PM EDT 08/01/2019 4:21 PM EDT Eliot Cohen MD POINT OF CARE TEST O RDERABLES Performing Organization Address City/[facility]/ZIP Co de Phone Number [facility] [place] [address] * (ABNORMAL) POCT Glucose (08/01/2019 12:32 PM EDT) Glucose, POC 204(H) 65 - 199 mg/dL [facility] Comment: Supplemental ranges: <140 mg/dL before meals <180 mg/dL all other times of the day Blood specimen (specimen) 08/01/2019 12:32 PM EDT 08/01/2019 12:32 PM EDT Eliot Cohen MD POINT OF CARE TEST O RDERABLES Performing Organization Address [facility] Co de Phone Number [facility] [place] [address] * POCT Glucose (08/01/2019 8:22 AM EDT) Glucose, POC 188 65 - 199 mg/dL [facility] Comment: Supplemental ranges: <140 mg/dL before meals <180 mg/dL all other times of the day Blood specimen (specimen) 08/01/2019 8:22 AM EDT 08/01/2019 8:22 AM EDT Eliot Cohen MD POINT OF CARE TEST O RDERABLES Performing Organization Address City/[facility]/ZIP Co de Phone Number [facility] [place] [address] * (ABNORMAL) Differential, Automated (08/01/2019 6:25 AM EDT) Neutrophil % 79.8 % [facility] Neutrophil Absolute 6.35(H) 1.70 - 6.10 x10(3)/mc L [facility] Lymph % 7.2 % [facility] Lymphocytes Abs 0.6(L) 0.9 - 3.2 x10(3)/mc L [facility] Monocyte % 9.8 % [facility] Monocyte Abs 0.8 0.3 - 0.9 x10(3)/[facility] Eos % 2.0 % [facility] Eosinophils Abs 0.2 0.0 - 0.4 x10(3)/[facility] Basophil % 0.6 % [facility] Baso Absolute 0.0 0.0 - 0.1 x10(3)/[facility] Immature Gran % 0.60 % [facility] Comment: Immature granulocytes(IG's)percentage and absolute count will include metamyelocytes, myelocytes, and promyelocytes. Blood smears from CBCs yielding IG's will be scanned manually for concordance. If this scan disagrees with the automated IG or if promyelocytes are noted, a manual differential will be performed. Immature Gran Absolute 0.05(H) 0.00 - 0.04 x10(3)/[facility] Blood specimen (specimen) 08/01/2019 6:25 AM EDT 08/01/2019 6:32 AM EDT Narrative Resulting Agency Comment Spec In Lab Sandhya August APRN HEMATOLOGY ORDE RUSH [facility] [place] [address] * (ABNORMAL) Hemogram (08/01/2019 6:25 AM EDT) White Blood Cell 8.0 4.0 - 9.5 x10(3)/[facility] Red Blood Cell 2.85(L) 4.58 - 5.54 x10(6)/[facility] Hemoglobin 9.1(L) 13.7 - 16.5 gm/dL [facility] Hematocrit 28.2(L) 40.5 - 48.5 % [facility] Mean Cell Volume 98.9(H) 82.9 - 93.1 fL [facility] Mean Cell Hemoglobin 31.9 27.5 - 32.1 pg [facility] Mean Cell Hemoglobin Concentration 32.3 32.0 - 35.7 gm/dL [facility] Platelet 128(L) 145 - 357 x10(3)/mc L [facility] RDW Standard Deviation 52.0(H) 36.0 - 45.0 fL [facility] RDW coefficient of variation 14.5(H) 11.4 - 13.8 % [facility] Mean Platelet Volume 10.1 7.6 - 12.9 fL [facility] NRBC% auto 0.0 % [facility] NRBC Absolute 0.000 0.000 - 0.000 x10(3)/mc L [facility] Blood specimen (specimen) 08/01/2019 6:25 AM EDT 08/01/2019 6:32 AM EDT Narrative Resulting Agency Comment Spec In Lab Sandhya August APRN HEMATOLOGY JAY BEVERLY [facility] [place] [address] * (ABNORMAL) Troponin (08/01/2019 6:25 AM EDT) Troponin-T 0.12(H) 0.00 - 0.00 ng/mL [facility] Comment: The 99th percentile for Troponin T is less than 0.01 ng/mL, any detectable cTnT concentration using this assay should be considered elevated. According to the third universal definition of myocardial infarction the following criteria with a clinical presentation consistent with acute myocardial ischemia meets the diagnosis for a myocardial infarction (WI). Detection of a rise and/or fall of cTnT, with at least one value greater than the 99th percentile (> or = 0.01) and with at least one of the following ?? Symptoms of ischemia ?? New or presumed new significant [id number] wave (ST-T) changes or new left bundle branch block (LBBB) ?? Development of pathologic Q waves in the ECG ?? Imaging evidence of new loss of viable myocardium or new regional wall motion abnormality ?? Identification of an intracoronary thrombus by angiography or autopsy Samples for cTnT testing should be obtained serially upon first assessment and again 3 to 6 hours later. If the clinical suspicion is high and previous samples have been negative an additional sample may be indicated. Reference: Third [place] Definition of Myocardial Infarction. Journal of the [employer] College [employer] 2012;60:1581-98 Blood specimen (specimen) 08/01/2019 6:25 AM EDT 08/01/2019 6:32 AM EDT Narrative Resulting Agency Comment Spec In Lab Sandhya August TRUST CLERK CHEMISTRY ORDER ROBBIE [facility] [place] [address] * (ABNORMAL) Comprehensive metabolic panel (non-fasting) (08/01/2019 6:25 AM EDT) Glucose 180 65 - 199 mg/dL [facility] Comment:Diabetes: >=200 mg/d L plus symptoms Blood Urea Nitrogen 33(H) 10 - 20 mg/dL [facility] Creatinine 5.44(H) 0.80 - 1.50 mg/dL [facility] Sodium 130(L) 135 - 145 mmol/L [facility] Potassium 5.0 3.5 - 5.0 mmol/L [facility] Comment: Please note: ??Patients with WBC >100,000 may have falsely elevated Potassium levels. ??For accurate Potassium quantification in these patients send serum separator tube (gold top) for subsequent determinations. ??Contact the Clinical Chemistry Laboratory if there are any questions. Chloride 91(L) 98 - 107 mmol/L [facility] Carbon Dioxide 25 22 - 31 mmol/L [facility] Anion Gap 14 5 - 15 mmol/L [facility] Calcium 8.5 8.5 - 10.5 mg/dL [facility] Protein, Total 7.4 6.1 - 8.0 gm/dL [facility] Albumin 3.4 3.2 - 5.2 gm/dL [facility] Aspartate Aminotransferase 29 0 - 39 unit/L [facility] Alanine Aminotransferase 23 0 - 55 unit/L [facility] Alkaline Phosphatase 87 40 - 130 unit/L [facility] Bilirubin, Total 0.5 0.2 - 1.3 mg/dL [facility] Est Glomerular Filtration Rate 11(L) >=60 mL/min/1. 73 m?? [facility] Comment: The eGFR was calculated using the CKD-EPI equation. As with all creatinine based estimates of kidney function, eGFR values calculated with the CKD-EPI equation are not accurate in patients with acute kidney failure, extremes of body mass or the acutely ill. [email or web address]/[facility]nk[facility] eGFR 12(L) >=60 mL/min/1. 73 m?? [facility] Comment: The eGFR was calculated using the CKD-EPI equation. As with all creatinine based estimates of kidney function, eGFR values calculated with the CKD-EPI equation are not accurate in patients with acute kidney failure, extremes of body mass or the acutely ill. [email or web address] Blood specimen (specimen) 08/01/2019 6:25 AM EDT 08/01/2019 6:32 AM EDT Narrative Resulting Agency Comment Spec In Lab Sandhya August APRN CHEMISTRY ORDER ROBBIE [facility] [place] [address] * POCT Glucose (08/01/2019 3:43 AM EDT) Glucose, POC 130 65 - 199 mg/dL [facility] Comment: Supplemental ranges: <140 mg/dL before meals <180 mg/dL all other times of the day Blood specimen (specimen) 08/01/2019 3:43 AM EDT 08/01/2019 3:43 AM EDT Eliot Cohen MD POINT OF CARE TEST O RDERABLES [facility] [address] * POCT Glucose (07/31/2019 11:33 PM EDT) Glucose, POC 175 65 - 199 mg/dL [facility] Comment: Supplemental ranges: <140 mg/dL before meals <180 mg/dL all other times of the day Blood specimen (specimen) 07/31/2019 11:33 PM EDT 07/31/2019 11:33 PM EDT Eliot Cohen MD POINT OF CARE TEST O RDERAROSIE Performing Organization Address City/[facility]/ZIP Co de Phone Number [facility] [address] * POCT Glucose (07/31/2019 7:54 PM EDT) Glucose, POC 178 65 - 199 mg/dL [facility] Comment: Supplemental ranges: <140 mg/dL before meals <180 mg/dL all other times of the day Blood specimen (specimen) 07/31/2019 7:54 PM EDT 07/31/2019 7:54 PM EDT Eliot Cohen MD POINT OF CARE TEST O FREDERICKERAROSIE Performing Organization Address City/[facility]/ZIP Co de Phone Number [facility] [place] [address] * POCT Glucose (07/31/2019 4:04 PM EDT) Glucose, POC 166 65 - 199 mg/dL [facility] Comment: Supplemental ranges: <140 mg/dL before meals <180 mg/dL all other times of the day Blood specimen (specimen) 07/31/2019 4:04 PM EDT 07/31/2019 4:04 PM EDT Eliot Cohen MD POINT OF CARE TEST O RDERABLES Performing Organization Address [facility]/ZIP Co de Phone Number [facility] [place] [address] * (ABNORMAL) Troponin (07/31/2019 3:30 PM EDT) [facility] Troponin-T 0.10(H) 0.00 - 0.00 ng/mL [facility] Comment: The 99th percentile for Troponin T is less than 0.01 ng/mL, any detectable cTnT concentration using this assay should be considered elevated. According to the third universal definition of myocardial infarction the following criteria with a clinical presentation consistent with acute myocardial ischemia meets the diagnosis for a myocardial infarction ([place]). Detection of a rise and/or fall of cTnT, with at least one value greater than the 99th percentile (> or = 0.01) and with at least one of the following ?? Symptoms of ischemia ?? New or presumed new significant RP-unciqzj-S wave (ST-T) changes or new left bundle branch block (LBBB) ?? Development of pathologic Q waves in the ECG ?? Imaging evidence of new loss of viable myocardium or new regional wall motion abnormality ?? Identification of an intracoronary thrombus by angiography or autopsy Samples for cTnT testing should be obtained serially upon first assessment and again 3 to 6 hours later. If the clinical suspicion is high and previous samples have been negative an additional sample may be indicated. Reference: Third [place] Definition of Myocardial Infarction. Journal of the [employer] College [employer] 2012;60:1581-98 Blood specimen (specimen) 07/31/2019 3:30 PM EDT 07/31/2019 3:44 PM EDT Narrative Resulting Agency Comment Spec In Lab Sandhya August TRUST CLERK CHEMISTRY ORDER ROBBIE Performing Organization Address [facility]/ZIP Co de Phone Number [facility] [place] [address] * EKG 12 Lead (07/31/2019 3:10 PM EDT) Ventricular rate 113 BPM MUSE SYSTEM Atrial Rate 113 BPM MUSE SYSTEM P-R Interval 184 ms MUSE SYSTEM QRS Duration 96 ms MUSE SYSTEM Q-T Interval 320 ms MUSE SYSTEM QTC Calculated (Bezet) 438 ms MUSE SYSTEM Calculated P [place] 63 degrees MUSE SYSTEM Calculated R [place] 57 degrees MUSE SYSTEM Calculated T [place] 28 degrees MUSE SYSTEM INTERPRETATION Sinus tachycardia with frequent Premature ventricular complexes Abnormal ECG When compared with ECG of 31-JUL-2019 05:49, Fusion complexes are no longer Present Confirmed by MD JOANNA, PENNY ([id number]) on 08/01/2019 8:38:22 AM MUSE SYSTEM 07/31/2019 3:10 PM EDT 08/01/2019 8:38 AM EDT Sandhya Morro August TRUST CLERK ECG ORDERABLES MUSE SYSTEM * ECHO COMPLETE W CONTRAST (07/31/2019 2:25 PM EDT) EF 60 HEART[facility] SYSTEM Anatomical Region Laterality Modality Other 07/31/2019 Narrative 07/31/2019 3:10 PM EDT Procedure: ?Transthoracic Echocardiogram Patient: ?RONNI DELONG A ?(Age): 1960(59y) Med Rec#: ? [id number] ?Sex: ?M ? Site Loc: ? [facility] ?Ht / Wt: ??162(cm)/103(kg) Pt. Loc: ?Adult Floor ? BSA: ?2.06 Study Date: ?? 07/31/2019 ?Pt. Type: Inpatient Tape: ? Referring: Aaron Dover Referring: YANELI Reading: Dev Hernandez ??([id number]) Field Mechanic: Heredia, Efraín Diagnosis: *Unspecified fall, initial encounter (W19.XXXA) Rhythm: ? Tachycardia BP: ? 158/78 SUMMARY: 1. Technically difficult study despite use of echo contrast. 2. The left ventricular chamber size is normal. There is normal global left ventricular systolic function. ??Ejection fraction is estimated to be 60%. There [...] is no prior study for comparison. Findings ? : Study Quality: ? Technically limited Left Ventricle: ? The left ventricular chamber size is normal. ?Left ventricular wall thickness is normal. ?There is normal global left ventricular systolic function. ??Ejection fraction is estimated to be 60%. ?There are no left ventricular segmental wall motion abnormalities. ?Left ventricular diastolic function is normal. ?Doppler assessment is consistent with normal left sided filling pressure. Left Atrium: ? The left atrium is not well visualized. ?There is no evidence of a patent foramen ovale by color Doppler. Right Ventricle: ? Right ventricular chamber size, wall thickness, and systolic function are within normal limits. ?Pulmonary artery hypertension could not be assessed due to inadequate tricuspid regurgitation jet. Right Atrium: ? The right atrium is not well visualized. Aortic Valve: ? The aortic valve is tricuspid. ?The aortic valve leaflets are mildly thickened. ?There is aortic annular calcification. ?There is no evidence of aortic valve stenosis. ?There is no evidence of aortic regurgitation. Mitral Valve: ? The mitral valve leaflets are mildly thickened. ?There is trace mitral regurgitation present. Tricuspid Valve: ? The tricuspid valve appears normal in structure and function. ?There is trace tricuspid regurgitation present. Pulmonic Valve: ? The pulmonic valve appears normal in structure and function. ?There is trace pulmonic regurgitation present. Pericardium: ? The pericardium appears normal and there is no evidence of a pericardial effusion. Aorta: ? The aortic root is normal in size. ?There is mild dilatation of the ascending aorta. Pulmonary Artery: ? The main pulmonary artery appears normal. Venous: ? The inferior vena cava appears normal in size. ?There is a greater than 50% respiratory change in the inferior vena cava dimension. Misc: ? There is no hemodynamically significant valve disease. ?Technically difficult study. ?See remainder of report for additional findings. ?Two-dimensional echo, spectral Doppler and color Doppler performed. ?Optison contrast (one 3 ml vial) was used to enhance endocardial definition. Excess contrast was discarded. Chambers 2D ?Value ?Units (Range) ? IVSd (2D) ? 1.08 ? cm ? LVPWd (2D) ?1.05 ? cm ? IVS:LVPW ratio (2D) 1.03 ? ratio ? RWT (2D) ?0.42 ? ratio ? RWT PW (2D) ? 0.41 ? ratio ? LVIDd (2D) ?5.1 ?cm ? LVIDs (2D) ?3.74 ? cm ? LVIDd (2D) index ?2.47 ? cm/m2 ? LVIDs (2D) index ?1.82 ? cm/m2 ? LV FS (2D) ?26.55 ?% ? EF Teichholz (2D) ?? 51.64 ?% ? Ao root diameter (2D3.43 ? cm (2.1 - 3.6) ? Ascending Ao ?3.72 ? cm (2 - 3.5) ? Volumes/Mass ?Value ?Units (Range) ? LV mass (2D) ?204.44 ? g ? LV mass (2D) index ??99.27 ?g/m2 ? Diastolic/Systolic Function ?Value ?Units (Range) ? MV E-wave Vmax ?1.24 ? m/sec ? LV septal e' Vmax ?? 0.11 ? m/sec ? LV lateral e' Vmax ??0.1 ?m/sec ? LV average e' Vmax ??0.11 ? m/sec ? LV E:e' septal ratio11.27 ?ratio ? LV E:e' lateral rati12.4 ? ratio ? LV average E:e' rati11.81 ?ratio ? Wall Motion: Segment Name ?Rest ? Base-Anteroseptal ?? Normal ? Base-Anterior ? Normal ? Base-Anterolateral ??Normal ? Base-Posterolateral Normal ? Base-Inferior ? Normal ? Base-Inferoseptal ?? Normal ? Mid-Anteroseptal ?Normal ? Mid-Anterior ?Normal ? Mid-Anterolateral ?? Normal ? Mid-Posterolateral ??Normal ? Mid-Inferior ?Normal ? Mid-Inferoseptal ?Normal ? Hardesty-Septal ? Normal ? Hardesty-Anterior ? Normal ? Hardesty-Lateral ?Normal ? Hardesty-Inferior ? Normal ? Hardesty-Tip ?Normal ? This report has been electronically signed by: Dev Hernandez MD ? 07/31/2019 15:10:05 Images reviewed and interpretation verified [facility] Cardiac Ultrasound Laboratory Procedure Note Dev Hernandez MD - 07/31/2019 Procedure: Transthoracic Echocardiogram Patient: RONNI Gurrola (Age): 1960(59y) Med Rec#: [id number] Sex: M Site Loc: [facility] Ht / Wt: 162(cm)/103(kg) Pt. Loc: Adult Floor BSA: 2.06 Study Date: 07/31/2019 Pt. Type: Inpatient Tape: Referring: Aaron Dover Referring: YANELI Reading: Dev Hernandez ([id number]) Field Mechanic: Efraín Heredia Diagnosis: *Unspecified fall, initial encounter [...] Normal Mid-Posterolateral Normal Mid-Inferior Normal Mid-Inferoseptal Normal Hardesty-Septal Normal Hardesty-Anterior Normal Hardesty-Lateral Normal Hardesty-Inferior Normal Hardesty-Tip Normal This report has been electronically signed by: Dev Hernandez MD 07/31/2019 15:10:05 Images reviewed and interpretation verified [facility] Cardiac Ultrasound Laboratory Aaron Dover MD ECHO ORDERABLES * POCT Glucose (07/31/2019 1:13 PM EDT) Glucose, POC 122 65 - 199 mg/dL [facility] Comment: Supplemental ranges: <140 mg/dL before meals <180 mg/dL all other times of the day Blood specimen (specimen) 07/31/2019 1:13 PM EDT 07/31/2019 1:13 PM EDT Eliot Cohen MD POINT OF CARE TEST O RDERABLES [facility] [place] [address] * POCT Glucose (07/31/2019 7:44 AM EDT) [facility] Glucose, POC 148 65 - 199 mg/dL [facility] Comment: Supplemental ranges: <140 mg/dL before meals <180 mg/dL all other times of the day Blood specimen (specimen) 07/31/2019 7:44 AM EDT 07/31/2019 7:44 AM EDT Eliot Cohen MD POINT OF CARE TEST O RDERABLES Performing Organization Address City/[facility]/ZIP Co de Phone Number [facility] [place] [phone] * EKG 12 Lead (07/31/2019 5:49 AM EDT) [facility] Ventricular rate 108 BPM MUSE SYSTEM Atrial Rate 108 BPM MUSE SYSTEM P-R Interval 192 ms MUSE SYSTEM QRS Duration 98 ms MUSE SYSTEM Q-T Interval 336 ms MUSE SYSTEM QTC Calculated (Bezet) 450 ms MUSE SYSTEM Calculated P [place] 58 degrees MUSE SYSTEM Calculated R [place] 51 degrees MUSE SYSTEM Calculated T [place] 5 degrees MUSE SYSTEM INTERPRETATION Sinus tachycardia Occasional Premature ventricular complexes and Fusion complexes Cannot rule out Inferior infarct (cited on or before 30-JUL-2019) Poor R-wave progression Abnormal ECG When compared with ECG of 30-JUL-2019 08:59, Fusion complexes are now Present Confirmed by MD David, Dev Barcenas ([id number]) on 07/31/2019 7:59:11 AM MUSE SYSTEM 07/31/2019 5:49 AM EDT 07/31/2019 7:59 AM EDT Eliot Cohen MD ECG ORDERABLES Performing Organization Address City/[facility]/ZIP Co de Phone Number MUSE SYSTEM * (ABNORMAL) Differential, Automated (07/31/2019 4:20 AM EDT) Pathologist [facility] Neutrophil % 71.2 % [facility] Neutrophil Absolute 5.20 1.70 - 6.10 x10(3)/mc L [facility] Lymph % 12.7 % [facility] Lymphocytes Abs 0.9 0.9 - 3.2 x10(3)/ L [facility] Monocyte % 8.5 % [facility] Monocyte Abs 0.6 0.3 - 0.9 x10(3)/[facility] Eos % 6.4 % [facility] Eosinophils Abs 0.5(H) 0.0 - 0.4 x10(3)/[facility] Basophil % 0.4 % [facility] Baso Absolute 0.0 0.0 - 0.1 x10(3)/[facility] Immature Gran % 0.80 % [facility] Comment: Immature granulocytes(IG's)percentage and absolute count will include metamyelocytes, myelocytes, and promyelocytes. Blood smears from CBCs yielding IG's will be scanned manually for concordance. If this scan disagrees with the automated IG or if promyelocytes are noted, a manual differential will be performed. Immature Gran Absolute 0.06(H) 0.00 - 0.04 x10(3)/[facility] Blood specimen (specimen) 07/31/2019 4:20 AM EDT 07/31/2019 4:35 AM EDT Narrative Resulting Agency Comment Spec In Lab Chantale EDGAR HEMATOLOGY ORDERABLE S Performing Organization Address City/State/[facility] Co de Phone Number [facility] [address] * (ABNORMAL) Hemogram (07/31/2019 4:20 AM EDT) White Blood Cell 7.3 4.0 - 9.5 x10(3)/[facility] Red Blood Cell 2.95(L) 4.58 - 5.54 x10(6)/[facility] Hemoglobin 9.2(L) 13.7 - 16.5 gm/dL [facility] Hematocrit 28.6(L) 40.5 - 48.5 % [facility] Mean Cell Volume 96.9(H) 82.9 - 93.1 fL [facility] Mean Cell Hemoglobin 31.2 27.5 - 32.1 pg [facility] Mean Cell Hemoglobin Concentration 32.2 32.0 - 35.7 gm/dL [facility] Platelet 128(L) 145 - 357 x10(3)/mc L [facility] RDW Standard Deviation 49.7(H) 36.0 - 45.0 fL [facility] RDW coefficient of variation 14.5(H) 11.4 - 13.8 % [facility] Mean Platelet Volume 10.7 7.6 - 12.9 fL [facility] NRBC% auto 0.0 % [facility] NRBC Absolute 0.000 0.000 - 0.000 x10(3)/mc L [facility] Blood specimen (specimen) 07/31/2019 4:20 AM EDT 07/31/2019 4:35 AM EDT Narrative Resulting Agency Comment Spec In Lab Chantale EDGAR HEMATOLOGY ORDERABLE S Performing Organization Address City/State/[facility] Co de Phone Number [facility] [place] [address] * (ABNORMAL) Troponin (07/31/2019 4:20 AM EDT) Troponin-T 0.09(H) 0.00 - 0.00 ng/mL [facility] Comment: The 99th percentile for Troponin T is less than 0.01 ng/mL, any detectable cTnT concentration using this assay should be considered elevated. According to the third universal definition of myocardial infarction the following criteria with a clinical presentation consistent with acute myocardial ischemia meets the diagnosis for a myocardial infarction ([place]). Detection of a rise and/or fall of cTnT, with at least one value greater than the 99th percentile (> or = 0.01) and with at least one of the following ?? Symptoms of ischemia ?? New or presumed new significant MR-rvdlfsv-P wave (ST-T) changes or new left bundle branch block (LBBB) ?? Development of pathologic Q waves in the ECG ?? Imaging evidence of new loss of viable myocardium or new regional wall motion abnormality ?? Identification of an intracoronary thrombus by angiography or autopsy Samples for cTnT testing should be obtained serially upon first assessment and again 3 to 6 hours later. If the clinical suspicion is high and previous samples have been negative an additional sample may be indicated. Reference: Third [place] Definition of Myocardial Infarction. Journal of the [employer] 2012;60:1581-98 Blood specimen (specimen) 07/31/2019 4:20 AM EDT 07/31/2019 4:35 AM EDT Narrative Resulting Agency Comment Spec In Lab Aaron Dover MD CHEMISTRY ORDERABLES Performing Organization Address [facility]/ZIP Co de Phone Number [facility] [place] [address] * Magnesium (07/31/2019 4:20 AM EDT) Pathologist [facility] Magnesium 0.92 0.69 - 1.07 mmol/L [facility] Blood specimen (specimen) 07/31/2019 4:20 AM EDT 07/31/2019 4:35 AM EDT Narrative Resulting Agency Comment Spec In Lab Aaron Dover MD CHEMISTRY ORDERABLES Performing Organization Address [facility] Co de Phone Number [facility] [place] [address] * (ABNORMAL) Basic Metabolic Panel (non-fasting) (07/31/2019 4:20 AM EDT) Glucose 110 65 - 199 mg/dL [facility] Comment:Diabetes: >=200 mg/d L plus symptoms Blood Urea Nitrogen 48(H) 10 - 20 mg/dL [facility] Creatinine 6.13(H) 0.80 - 1.50 mg/dL [facility] Comment:result rechecked-[facility] Sodium 133(L) 135 - 145 mmol/L [facility] Potassium 4.4 3.5 - 5.0 mmol/L [facility] Comment: Please note: ??Patients with WBC >100,000 may have falsely elevated Potassium levels. ??For accurate Potassium quantification in these patients send serum separator tube (gold top) for subsequent determinations. ??Contact the Clinical Chemistry Laboratory if there are any questions. Chloride 92(L) 98 - 107 mmol/L [facility] Carbon Dioxide 27 22 - 31 mmol/L [facility] Anion Gap 14 5 - 15 mmol/L [facility] Calcium 8.5 8.5 - 10.5 mg/dL [facility] Est Glomerular Filtration Rate 9(L) >=60 mL/min/1. 73 m?? [facility] Comment: The eGFR was calculated using the CKD-EPI equation. As with all creatinine based estimates of kidney function, eGFR values calculated with the CKD-EPI equation are not accurate in patients with acute kidney failure, extremes of body mass or the acutely ill. http://[employer]/[facility] eGFR 11(L) >=60 mL/min/1. 73 m?? [facility] Comment: The eGFR was calculated using the CKD-EPI equation. As with all creatinine based estimates of kidney function, eGFR values calculated with the CKD-EPI equation are not accurate in patients with acute kidney failure, extremes of body mass or the acutely ill. [email or web address] Blood specimen (specimen) 07/31/2019 4:20 AM EDT 07/31/2019 4:35 AM EDT Narrative Resulting Agency Comment Spec In Lab Aaron Dover MD CHEMISTRY ORDERABLES [facility] [place] [address] * POCT Glucose (07/31/2019 4:08 AM EDT) Glucose, POC 129 65 - 199 mg/dL [facility] Comment: Supplemental ranges: <140 mg/dL before meals <180 mg/dL all other times of the day Blood specimen (specimen) 07/31/2019 4:08 AM EDT 07/31/2019 4:08 AM EDT Eliot Cohen MD POINT OF CARE TEST O RDERABLES [facility] [place] [address] * POCT Glucose (07/30/2019 10:52 PM EDT) Glucose, POC 140 65 - 199 mg/dL [facility] Comment: Supplemental ranges: <140 mg/dL before meals <180 mg/dL all other times of the day Blood specimen (specimen) 07/30/2019 10:52 PM EDT 07/30/2019 10:52 PM EDT Eliot Cohne MD POINT OF CARE TEST O RDERAROSIE Performing Organization Address [facility]/ZIP Co de Phone Number [facility] [place] [address] * (ABNORMAL) POCT Glucose (07/30/2019 7:29 PM EDT) Glucose, POC 217(H) 65 - 199 mg/dL [facility] Comment: Supplemental ranges: <140 mg/dL before meals <180 mg/dL all other times of the day Blood specimen (specimen) 07/30/2019 7:29 PM EDT 07/30/2019 7:29 PM EDT Aaron Dover MD POINT OF CARE TEST O RDERABLES Performing Organization Address City/[facility]/ZIP Co de Phone Number [facility] [place] [address] * (ABNORMAL) Troponin (07/30/2019 6:10 PM EDT) Troponin-T 0.08(H) 0.00 - 0.00 ng/mL [facility] Comment: The 99th percentile for Troponin T is less than 0.01 ng/mL, any detectable cTnT concentration using this assay should be considered elevated. According to the third universal definition of myocardial infarction the following criteria with a clinical presentation consistent with acute myocardial ischemia meets the diagnosis for a myocardial infarction ([place]). Detection of a rise and/or fall of cTnT, with at least one value greater than the 99th percentile (> or = 0.01) and with at least one of the following ?? Symptoms of ischemia ?? New or presumed new significant PW-nlpqeps-U wave (ST-T) changes or new left bundle branch block (LBBB) ?? Development of pathologic Q waves in the ECG ?? Imaging evidence of new loss of viable myocardium or new regional wall motion abnormality ?? Identification of an intracoronary thrombus by angiography or autopsy Samples for cTnT testing should be obtained serially upon first assessment and again 3 to 6 hours later. If the clinical suspicion is high and previous samples have been negative an additional sample may be indicated. Reference: Third [place] Definition of Myocardial Infarction. Journal of the [employer] 2012;60:1581-98 Blood specimen (specimen) 07/30/2019 6:10 PM EDT 07/30/2019 6:19 PM EDT Narrative Resulting Agency Comment Spec In Lab Penny Conklin MD CHEMISTRY ORDERABLES Performing Organization Address [facility]/ZIP Co de Phone Number [facility] [place] [place] [address] * POCT Glucose (07/30/2019 4:13 PM EDT) [facility] Signature Glucose, POC 194 65 - 199 mg/dL [facility] Comment: Supplemental ranges: <140 mg/dL before meals <180 mg/dL all other times of the day Blood specimen (specimen) 07/30/2019 4:13 PM EDT 07/30/2019 4:13 PM EDT Aaron Dover MD POINT OF CARE TEST O RDERABLES Performing Organization Address City/[facility]/ZIP Co de Phone Number [facility] [place] [address] * (ABNORMAL) POCT Glucose (07/30/2019 1:18 PM EDT) Glucose, POC 225(H) 65 - 199 mg/dL [facility] Comment: Supplemental ranges: <140 mg/dL before meals <180 mg/dL all other times of the day Blood specimen (specimen) 07/30/2019 1:18 PM EDT 07/30/2019 1:18 PM EDT Aaron Dover MD POINT OF CARE TEST O RDERABLES [facility] [address] * (ABNORMAL) Troponin (07/30/2019 12:30 PM EDT) [facility] Troponin-T 0.07(H) 0.00 - 0.00 ng/mL [facility] Comment: The 99th percentile for Troponin T is less than 0.01 ng/mL, any detectable cTnT concentration using this assay should be considered elevated. According to the third universal definition of myocardial infarction the following criteria with a clinical presentation consistent with acute myocardial ischemia meets the diagnosis for a myocardial infarction ([place]). Detection of a rise and/or fall of cTnT, with at least one value greater than the 99th percentile (> or = 0.01) and with at least one of the following ?? Symptoms of ischemia ?? New or presumed new significant LM-vufsbzj-O wave (ST-T) changes or new left bundle branch block (LBBB) ?? Development of pathologic Q waves in the ECG ?? Imaging evidence of new loss of viable myocardium or new regional wall motion abnormality ?? Identification of an intracoronary thrombus by angiography or autopsy Samples for cTnT testing should be obtained serially upon first assessment and again 3 to 6 hours later. If the clinical suspicion is high and previous samples have been negative an additional sample may be indicated. Reference: Third [place] Definition of Myocardial Infarction. Journal of the [employer] 2012;60:1581-98 Blood specimen (specimen) 07/30/2019 12:30 PM EDT 07/30/2019 12:42 PM EDT Narrative Resulting Agency Comment Spec In Lab Penny Conklin MD CHEMISTRY ORDERABLES [facility] [place] [address] * XR Clavicle Right (Generic) (07/30/2019 12:23 [...] Vergara MD IMG DX ORDERABLES * XR Thoracic Spine 2 View Including Swimmers View (07/30/2019 12:23 PM EDT) Anatomical Region Laterality Modality N/A Digital Radiogra phy Impressions 07/30/2019 12:58 PM EDT No spondylolisthesis, as visualized. As well as can be visualized, anterior endplate arthropathy, compatible with osteoarthritis. Thank you for letting us participate in the care of this patient. For questions regarding this report, please contact the number below. ? Narrative 07/30/2019 12:58 PM EDT EXAMINATION: XR THORACIC SPINE 2 VIEW INCLUDING SWIMMERS VIEW CLINICAL HISTORY: R T1-4 TP Fx TECHNIQUE: 2 views of the thoracic spine. Very limited examination due to superimposed soft tissues obscuring views of the upper thoracic spine. COMPARISON: None FINDINGS: No spondylolisthesis, as visualized. As well as can be visualized, anterior endplate arthropathy, compatible with osteoarthritis. Procedure Note Young Johns MD - 07/30/2019 EXAMINATION: XR THORACIC SPINE 2 VIEW INCLUDING SWIMMERS VIEW CLINICAL HISTORY: R T1-4 TP Fx TECHNIQUE: 2 views of the thoracic spine. Very limited examination due tosuperimposed soft tissues obscuring views of the upper thoracic spine. COMPARISON: None FINDINGS: No spondylolisthesis, as visualized. As well as can be visualized, anterior endplate arthropathy, compatiblewith osteoarthritis. IMPRESSION No spondylolisthesis, as visualized. As well as can be visualized, anterior endplate arthropathy, compatiblewith osteoarthritis. Thank you for letting us participate in the care of this patient. Forquestions regarding this report, please contact the number below. Aaron Dover MD IMG DX ORDERABLES * XR Cervical Spine 2 or 3 Views (07/30/2019 12:23 PM EDT) Anatomical Region Laterality Modality C-spine N/A Digital Radiogra phy Impressions 07/30/2019 12:55 PM EDT Osteoarthritis Thank you for letting us participate in the care of this patient. For questions regarding this report, please contact the number below. ? Electronically signed by: ALEXANDER Corral [facility] ([phone]), at 07/30/2019 12:55 PM Narrative 07/30/2019 12:55 PM EDT EXAMINATION: XR CERVICAL SPINE 2 OR 3 VIEWS CLINICAL HISTORY: R C7 TP Fx TECHNIQUE: 3 views of the cervical spine COMPARISON: Neck CT from 07/30/2019 FINDINGS: C1-C6 adequately visualized. No spondylolisthesis. C3 anterior inferior endplate osteophyte. C5 anterior inferior osteophyte. Multilevel posterior facet sclerosis These findings are compatible with degenerative osteoarthritis. Procedure Note Young Johns MD - 07/30/2019 EXAMINATION: XR CERVICAL SPINE 2 OR 3 VIEWS CLINICAL HISTORY: R C7 TP Fx TECHNIQUE: 3 views of the cervical spine COMPARISON: Neck CT from 07/30/2019 FINDINGS: C1-C6 adequately visualized. No spondylolisthesis. C3 anterior inferior endplate osteophyte. C5 anterior inferior osteophyte. Multilevel posterior facet sclerosis These findings are compatible with degenerative osteoarthritis. IMPRESSION Osteoarthritis Thank you for letting us participate in the care of this patient. Forquestions regarding this report, please contact the number below. Aaron Dover MD IMG DX ORDERABLES * XR Chest PA & Lateral (Generic) (07/30/2019 12:23 PM EDT) Anatomical Region Laterality Modality Chest N/A Digital Radiogra phy Impressions 07/30/2019 12:56 PM EDT 1. ??Small left pleural fluid collection versus atelectasis or both. 2. ??Small volume presumed extrapleural blood at the right apex and along the right lateral chest wall secondary to known right rib fracture which is not well visualized. Thank you for letting us participate in the care of this patient. For questions regarding this report, please contact the number below. ? Narrative 07/30/2019 12:56 PM EDT EXAMINATION: XR CHEST PA AND LATERAL (GENERIC) CLINICAL HISTORY: s/p trauma - pulm contusion and rib fxs please eval for interval change TECHNIQUE: AP standing and lateral views of the chest 07/30/2019 at 1111 hours COMPARISON: 07/30/2019 at 0006 hours, CT chest 07/29/2019 FINDINGS: Right lung is well-inflated and there is no focal consolidation. Left lung is well-inflated. Blunted left lateral and posterior costophrenic sulcus may indicate small effusion atelectasis or a combination. Enlarged cardio-pericardial silhouette is secondary to prominent epicardial fat pads as demonstrated on CT. Median sternotomy wires are present and there are left mediastinal surgical clips. No pneumothorax. The known clavicle fracture is not well delineated, and the known right humeral fracture is not included in the fwbko-hn-odhg. Known right second rib fracture is not visible. There is curvilinear density along the right apical and lateral chest wall that is similar to prior, most likely extrapleural blood. No distended loops of bowel. EKG leads overlie the patient and obscure the [id number]. Procedure Note Rosio Burt MD - 07/30/2019 EXAMINATION: XR CHEST PA AND LATERAL (GENERIC) CLINICAL HISTORY: s/p trauma - pulm contusion and rib fxs please evalfor interval change TECHNIQUE: AP standing and lateral views of the chest 07/30/2019 at 1111 hours COMPARISON: 07/30/2019 at 0006 hours, CT chest 07/29/2019 FINDINGS: Right lung is well-inflated and there is no focal consolidation. Left lungis well-inflated. Blunted left lateral and posterior costophrenic sulcusmay indicate small effusion atelectasis or a combination. Enlarged cardio-pericardial silhouette is secondary to prominent epicardial fatpads as demonstrated on CT. Median sternotomy wires are present and there areleft mediastinal surgical clips. No pneumothorax. The known clavicle fracture is not well delineated, andthe known right humeral fracture is not included in the gexya-oz-pyeg. Knownright second rib fracture is not visible. There is curvilinear density along theright apical and lateral chest wall that is similar to prior, most likelyextrapleural blood. No distended loops of bowel. EKG leads overlie the patient and obscurethe aycnw-al-dcpc. IMPRESSION 1. Small left pleural fluid collection versus atelectasis or both. 2. Small volume presumed extrapleural blood at the right apex and alongthe right lateral chest wall secondary to known right rib fracture which isnot well visualized. Thank you for letting us participate in the care of this patient. Forquestions regarding this report, please contact the number below. Aaron Dover MD IMG DX ORDERABLES * (ABNORMAL) POCT Glucose (07/30/2019 12:18 PM EDT) Glucose, POC 255(H) 65 - 199 mg/dL [facility] Comment: Supplemental ranges: <140 mg/dL before meals <180 mg/dL all other times of the day Blood specimen (specimen) 07/30/2019 12:18 PM EDT 07/30/2019 12:18 PM EDT Aaron Dover MD POINT OF CARE TEST O RDERABLES Performing Organization Address [facility] Co de Phone Number [facility] [address] * (ABNORMAL) POCT Glucose (07/30/2019 10:02 AM EDT) Glucose, POC 266(H) 65 - 199 mg/dL [facility] Comment: Supplemental ranges: <140 mg/dL before meals <180 mg/dL all other times of the day Blood specimen (specimen) 07/30/2019 10:02 AM EDT 07/30/2019 10:02 AM EDT Aaron Dover MD POINT OF CARE TEST O FREDERICKERAROSIE Performing Organization Address City/[facility]/ZIP Co de Phone Number [facility] [address] * EKG 12 Lead (07/30/2019 8:59 AM EDT) Ventricular rate 108 BPM MUSE SYSTEM Atrial Rate 108 BPM MUSE SYSTEM P-R Interval 182 ms MUSE SYSTEM QRS Duration 94 ms MUSE SYSTEM Q-T Interval 344 ms MUSE SYSTEM QTC Calculated (Bezet) 460 ms MUSE SYSTEM Calculated P [place] 65 degrees MUSE SYSTEM Calculated R [place] 46 degrees MUSE SYSTEM Calculated T [place] 60 degrees MUSE SYSTEM INTERPRETATION Sinus tachycardia with frequent Premature ventricular complexes Possible Inferior infarct (cited on or before 30-JUL-2019) Abnormal ECG When compared with ECG of 30-JUL-2019 00:51, No significant change was found Confirmed by MD JOANNA, PENNY ([id number]) on 07/30/2019 9:45:15 AM MUSE SYSTEM 07/30/2019 8:59 AM EDT 07/30/2019 9:45 AM EDT Aaron Dover MD ECG ORDERABLES Performing Organization Address [facility] Co de Phone Number MUSE SYSTEM * (ABNORMAL) POCT Glucose (07/30/2019 8:15 AM EDT) Glucose, POC 268(H) 65 - 199 mg/dL [facility] Comment: Supplemental ranges: <140 mg/dL before meals <180 mg/dL all other times of the day Blood specimen (specimen) 07/30/2019 8:15 AM EDT 07/30/2019 8:15 AM EDT Aaron Dover MD POINT OF CARE TEST O RDERABLES [facility] [place] [place] [address] * CT Angiogram Carotids (07/30/2019 8:04 AM EDT) Anatomical Region Laterality Modality Neck, Head Computed Tomogra phy Impressions 07/30/2019 8:27 AM EDT 1. Somewhat limited head CT due to motion. No new hemorrhage identified. 2. No evidence of carotid or vertebral artery injury. Scattered atherosclerotic disease as above. Thank you for letting us participate in the care of this patient. For questions regarding this report, please contact the number below. ? Electronically signed by: ALEXANDER Figueroa [facility] ([phone]), at 07/30/2019 8:27 AM Narrative 07/30/2019 8:27 AM EDT EXAMINATION: CT ANGIOGRAM CAROTIDS, CT HEAD WO CONTRAST (GENERIC) CLINICAL HISTORY: Neck trauma, penetrating ICH and C7 TP Fx, ?dissection TECHNIQUE: CTA of the neck performed after the intravenous administration of contrast. Administered 65.0 ml of OMNIPAQUE 350.00 mg/ml. MIP and 3-D volumetric reconstructions were created. CT of the head without contrast. COMPARISON: CT head 07/29/2019 FINDINGS: Right frontal and subinsular areas of hypoattenuation are similar to the prior. Exam is somewhat limited by motion. There is an area of relative hypoattenuation in the left inferior temporal lobe which may be artifactual. Postsurgical changes are present in the right globe. No intracranial hemorrhage identified. No new fracture. CTA: There is mild atherosclerotic plaque on the arch. Right carotid: Common carotid origin is normal. There is atherosclerotic plaque at the carotid bifurcation without ICA stenosis. The ICA is otherwise normal in caliber. Left carotid: There is mild plaque along the course of the common carotid without stenosis. Calcified plaque is present bifurcation without ICA stenosis. The ICA is normal in caliber. Right vertebral artery: There is plaque at the origin with moderate narrowing. The cervical vertebral arteries otherwise normal in caliber. Left artery: Left vertebral artery is small throughout its course. The origin is normal. The left vertebral artery terminates primarily as PICA. Nonvascular findings: Right clavicle fracture is present. There is surrounding soft tissue swelling. Procedure Note Jethro Muniz MD - 07/30/2019 EXAMINATION: CT ANGIOGRAM CAROTIDS, CT HEAD WO CONTRAST (GENERIC) CLINICAL HISTORY: Neck trauma, penetrating ICH and C7 TP Fx, ?dissection TECHNIQUE: CTA of the neck performed after the intravenous administration ofcontrast. Administered 65.0 ml of OMNIPAQUE 350.00 mg/ml. MIP and 3-D volumetric reconstructions were created. CT of the head without contrast. COMPARISON: CT head 07/29/2019 FINDINGS: Right frontal and subinsular areas of hypoattenuation are similar to theprior. Exam is somewhat limited by motion. There is an area of relativehypoattenuation in the left inferior temporal lobe which may be artifactual.Postsurgical changes are present in the right globe. No intracranial hemorrhageidentified. No new fracture. CTA: There is mild atherosclerotic plaque on the arch. Right carotid: Common carotid origin is normal. There is atheroscleroticplaque at the carotid bifurcation without ICA stenosis. The ICA is otherwisenormal in caliber. Left carotid: There is mild plaque along the course of the commoncarotid without stenosis. Calcified plaque is present bifurcation without ICAstenosis. The ICA is normal in caliber. Right vertebral artery: There is plaque at the origin with moderatenarrowing. The cervical vertebral arteries otherwise normal in caliber. Left artery: Left vertebral artery is small throughout its course. Theorigin is normal. The left vertebral artery terminates primarily as PICA. Nonvascular findings: Right clavicle fracture is present. There issurrounding soft tissue swelling. IMPRESSION 1. Somewhat limited head CT due to motion. No new hemorrhage identified. 2. No evidence of carotid or vertebral artery injury. Scatteredatherosclerotic disease as above. Thank you for letting us participate in the care of this patient. Forquestions regarding this report, please contact the number below. Aaron Dover MD IM CT ORDERABLES * CT Head wo Contrast (Generic) (07/30/2019 8:04 AM EDT) Anatomical Region Laterality Modality Head Computed Tomogra phy Impressions 07/30/2019 8:27 AM EDT 1. Somewhat limited head CT due to motion. No new hemorrhage identified. 2. No evidence of carotid or vertebral artery injury. Scattered atherosclerotic disease as above. Thank you for letting us participate in the care of this patient. For questions regarding this report, please contact the number below. ? Electronically signed by: ALEXANDER Figueroa [facility] ([phone]), at 07/30/2019 8:27 AM Narrative 07/30/2019 8:27 AM EDT EXAMINATION: CT ANGIOGRAM CAROTIDS, CT HEAD WO CONTRAST (GENERIC) CLINICAL HISTORY: Neck trauma, penetrating ICH and C7 TP Fx, ?dissection TECHNIQUE: CTA of the neck performed after the intravenous administration of contrast. Administered 65.0 ml of OMNIPAQUE 350.00 mg/ml. MIP and 3-D volumetric reconstructions were created. CT of the head without contrast. COMPARISON: CT head 07/29/2019 FINDINGS: Right frontal and subinsular areas of hypoattenuation are similar to the prior. Exam is somewhat limited by motion. There is an area of relative hypoattenuation in the left inferior temporal lobe which may be artifactual. Postsurgical changes are present in the right globe. No intracranial hemorrhage identified. No new fracture. CTA: There is mild atherosclerotic plaque on the arch. Right carotid: Common carotid origin is normal. There is atherosclerotic plaque at the carotid bifurcation without ICA stenosis. The ICA is otherwise normal in caliber. Left carotid: There is mild plaque along the course of the common carotid without stenosis. Calcified plaque is present bifurcation without ICA stenosis. The ICA is normal in caliber. Right vertebral artery: There is plaque at the origin with moderate narrowing. The cervical vertebral arteries otherwise normal in caliber. Left artery: Left vertebral artery is small throughout its course. The origin is normal. The left vertebral artery terminates primarily as PICA. Nonvascular findings: Right clavicle fracture is present. There is surrounding soft tissue swelling. Procedure Note Jethro Muniz MD - 07/30/2019 EXAMINATION: CT ANGIOGRAM CAROTIDS, CT HEAD WO CONTRAST (GENERIC) CLINICAL HISTORY: Neck trauma, penetrating ICH and C7 TP Fx, ?dissection TECHNIQUE: CTA of the neck performed after the intravenous administration ofcontrast. Administered 65.0 ml of OMNIPAQUE 350.00 mg/ml. MIP and 3-D volumetric reconstructions were created. CT of the head without contrast. COMPARISON: CT head 07/29/2019 FINDINGS: Right frontal and subinsular areas of hypoattenuation are similar to theprior. Exam is somewhat limited by motion. There is an area of relativehypoattenuation in the left inferior temporal lobe which may be artifactual.Postsurgical changes are present in the right globe. No intracranial hemorrhageidentified. No new fracture. CTA: There is mild atherosclerotic plaque on the arch. Right carotid: Common carotid origin is normal. There is atheroscleroticplaque at the carotid bifurcation without ICA stenosis. The ICA is otherwisenormal in caliber. Left carotid: There is mild plaque along the course of the commoncarotid without stenosis. Calcified plaque is present bifurcation without ICAstenosis. The ICA is normal in caliber. Right vertebral artery: There is plaque at the origin with moderatenarrowing. The cervical vertebral arteries otherwise normal in caliber. Left artery: Left vertebral artery is small throughout its course. Theorigin is normal. The left vertebral artery terminates primarily as PICA. Nonvascular findings: Right clavicle fracture is present. There issurrounding soft tissue swelling. IMPRESSION 1. Somewhat limited head CT due to motion. No new hemorrhage identified. 2. No evidence of carotid or vertebral artery injury. Scatteredatherosclerotic disease as above. Thank you for letting us participate in the care of this patient. Forquestions regarding this report, please contact the number below. Kimani Kiser MD [facility] CT ORDERABLES * (ABNORMAL) Basic Metabolic Panel (non-fasting) (07/30/2019 6:10 AM EDT) Glucose 233(H) 65 - 199 mg/dL [facility] Comment:Diabetes: >=200 mg/d L plus symptoms Blood Urea Nitrogen 37(H) 10 - 20 mg/dL [facility] Creatinine 4.89(H) 0.80 - 1.50 mg/dL [facility] Sodium 136 135 - 145 mmol/L [facility] Potassium 4.5 3.5 - 5.0 mmol/L [facility] Comment: Please note: ??Patients with WBC >100,000 may have falsely elevated Potassium levels. ??For accurate Potassium quantification in these patients send serum separator tube (gold top) for subsequent determinations. ??Contact the Clinical Chemistry Laboratory if there are any questions. Chloride 94(L) 98 - 107 mmol/L [facility] Carbon Dioxide 29 22 - 31 mmol/L [facility] Anion Gap 13 5 - 15 mmol/L [facility] Calcium 8.6 8.5 - 10.5 mg/dL [facility] Est Glomerular Filtration Rate 12(L) >=60 mL/min/1. 73 m?? [facility] Comment: The eGFR was calculated using the CKD-EPI equation. As with all creatinine based estimates of kidney function, eGFR values calculated with the CKD-EPI equation are not accurate in patients with acute kidney failure, extremes of body mass or the acutely ill. [email or web address] CITYnkf eGFR 14(L) >=60 mL/min/1. 73 m?? [facility] Comment: The eGFR was calculated using the CKD-EPI equation. As with all creatinine based estimates of kidney function, eGFR values calculated with the CKD-EPI equation are not accurate in patients with acute kidney failure, extremes of body mass or the acutely ill. [email or web address] [place] CITYnkf Blood specimen (specimen) 07/30/2019 6:10 AM EDT 07/30/2019 6:17 AM EDT Narrative Resulting Agency Comment Spec In Lab Penny Conklin MD CHEMISTRY ORDERABLES [facility] [place] [address] * Phosphorus (07/30/2019 6:10 AM EDT) Phosphorus 4.5 2.5 - 4.5 mg/dL [facility] Blood specimen (specimen) 07/30/2019 6:10 AM EDT 07/30/2019 6:17 AM EDT Narrative Resulting Agency Comment Spec In Lab Aaron Dover MD CHEMISTRY ORDERABLES Performing Organization Address City/[facility]/ZIP Co de Phone Number [facility] [place] [address] * Magnesium (07/30/2019 6:10 AM EDT) Pathologist [facility] Magnesium 0.81 0.69 - 1.07 mmol/L [facility] Blood specimen (specimen) 07/30/2019 6:10 AM EDT 07/30/2019 6:17 AM EDT Narrative Resulting Agency Comment Spec In Lab Aaron Dover MD CHEMISTRY ORDERABLES Performing Organization Address [facility] Co de Phone Number [facility] [address] * (ABNORMAL) Troponin (07/30/2019 6:10 AM EDT) Troponin-T 0.06(H) 0.00 - 0.00 ng/mL [facility] Comment: The 99th percentile for Troponin T is less than 0.01 ng/mL, any detectable cTnT concentration using this assay should be considered elevated. According to the third universal definition of myocardial infarction the following criteria with a clinical presentation consistent with acute myocardial ischemia meets the diagnosis for a myocardial infarction ([place]). Detection of a rise and/or fall of cTnT, with at least one value greater than the 99th percentile (> or = 0.01) and with at least one of the following ?? Symptoms of ischemia ?? New or presumed new significant BG-lkmfjtg-A wave (ST-T) changes or new left bundle branch block (LBBB) ?? Development of pathologic Q waves in the ECG ?? Imaging evidence of new loss of viable myocardium or new regional wall motion abnormality ?? Identification of an intracoronary thrombus by angiography or autopsy Samples for cTnT testing should be obtained serially upon first assessment and again 3 to 6 hours later. If the clinical suspicion is high and previous samples have been negative an additional sample may be indicated. Reference: Third [place] Definition of Myocardial Infarction. Journal of the [employer] 2012;60:1581-98 Blood specimen (specimen) 07/30/2019 6:10 AM EDT 07/30/2019 6:17 AM EDT Narrative Resulting Agency Comment Spec In Lab Penny Conklin MD CHEMISTRY ORDERABLES Performing Organization Address [facility] Co de Phone Number [facility] [place] [place] [address] * POCT Glucose (07/30/2019 1:38 AM EDT) Glucose, POC 175 65 - 199 mg/dL [facility] Comment: Supplemental ranges: <140 mg/dL before meals <180 mg/dL all other times of the day Blood specimen (specimen) 07/30/2019 1:38 AM EDT 07/30/2019 1:38 AM EDT Aaron Dover MD POINT OF CARE TEST O RDERABLES Performing Organization Address [facility] Co de Phone Number [facility] [place] [address] * XR Elbow 3 Views Right (GENERIC) (07/30/2019 1:25 AM EDT) Anatomical Region Laterality Modality Elbow Right Digital Radiogra phy Impressions 07/30/2019 1:49 AM EDT FINDINGS/IMPRESSION: Soft tissue swelling about the elbow, more prominent medially where there may also be a hematoma. No acute fracture, dislocation, or joint effusion seen. Olecranon enthesophyte. Antecubital IV catheter is present. Preliminary report signed by: Penny Bella at 07/30/2019 1:35 AM I have personally reviewed the image(s) and the resident's interpretation and agree with the findings, Huang Hernandez at 07/30/2019 1:49 AM Thank you for letting us participate in the care of this patient. For questions regarding this report, please contact the number below. ? Narrative 07/30/2019 1:49 AM EDT EXAMINATION: XR ELBOW 3 VIEWS RIGHT (GENERIC) CLINICAL HISTORY: evaluation of elbow after fall down stairs, pain and limited rom w/ superficial scrapes TECHNIQUE: AP, oblique, lateral, and radial head views COMPARISON: Right humerus radiographs from 07/29/2019. Procedure Note Huang Hernandez MD - 07/30/2019 EXAMINATION: XR ELBOW 3 VIEWS RIGHT (GENERIC) CLINICAL HISTORY: evaluation of elbow after fall down stairs, pain andlimited rom w/ superficial scrapes TECHNIQUE: AP, oblique, lateral, and radial head views COMPARISON: Right humerus radiographs from 07/29/2019. IMPRESSION FINDINGS/IMPRESSION: Soft tissue swelling about the elbow, more prominent medially where theremay also be a hematoma. No acute fracture, dislocation, or joint effusion seen. Olecranon enthesophyte. Antecubital IV catheter is present. Preliminary report signed by: Penny Bella at 07/30/2019 1:35 AM I have personally reviewed the image(s) and the resident's interpretationand agree with the findings, Huang Hernandez at 07/30/2019 1:49 AM Thank you for letting us participate in the care of this patient. Forquestions regarding this report, please contact the number below. Electronically signed by: ALEXANDER Weathers [facility]([phone]), at 07/30/2019 1:49 AM Kimani Kiser MD IMG DX ORDERABLES * XR Clavicle Right (Generic) (07/30/2019 1:00 AM EDT) Anatomical Region Laterality Modality Shoulder, Chest Right Digital Radiogra phy Impressions 07/30/2019 1:50 AM EDT FINDINGS/IMPRESSION: Oblique nondisplaced comminuted fracture of the mid right clavicle; associated soft tissue swelling/hematoma. The AC joint alignment features maintained. Partially viewed fracture of the humerus proximally in the region of the greater tubercle. Preliminary report signed by: Penny Bella at 07/30/2019 1:37 AM I have personally reviewed the image(s) and the resident's interpretation and agree with the findings, Huang Hernandez at 07/30/2019 1:50 AM Thank you for letting us participate in the care of this patient. For questions regarding this report, please contact the number below. ? Narrative 07/30/2019 1:50 AM EDT EXAMINATION: XR CLAVICLE RIGHT (GENERIC) CLINICAL HISTORY: evaluation of right clavicle fracture TECHNIQUE: 2 views RIGHT clavicle COMPARISON: CT chest abdomen pelvis from 07/29/2019. Procedure Note Huang Hernandez MD - 07/30/2019 EXAMINATION: XR CLAVICLE RIGHT (GENERIC) CLINICAL HISTORY: evaluation of right clavicle fracture TECHNIQUE: 2 views RIGHT clavicle COMPARISON: CT chest abdomen pelvis from 07/29/2019. IMPRESSION FINDINGS/IMPRESSION: Oblique nondisplaced comminuted fracture of the mid right clavicle;associated soft tissue swelling/hematoma. The AC joint alignment featuresmaintained. Partially viewed fracture of the humerus proximally in the region of thegreater tubercle. Preliminary report signed by: Penny Bella at 07/30/2019 1:37 AM I have personally reviewed the image(s) and the resident's interpretationand agree with the findings, Huang Hernandez at 07/30/2019 1:50 AM Thank you for letting us participate in the care of this patient. Forquestions regarding this report, please contact the number below. Kimani Kiser MD IMG DX ORDERABLES * EKG 12 Lead (07/30/2019 12:51 AM EDT) Ventricular rate 106 BPM MUSE SYSTEM Atrial Rate 106 BPM MUSE SYSTEM P-R Interval 180 ms MUSE SYSTEM QRS Duration 96 ms MUSE SYSTEM Q-T Interval 356 ms MUSE SYSTEM QTC Calculated (Bezet) 472 ms MUSE SYSTEM Calculated P [place] 64 degrees MUSE SYSTEM Calculated R [place] 57 degrees MUSE SYSTEM Calculated T [place] 49 degrees MUSE SYSTEM INTERPRETATION Sinus tachycardia with frequent Premature ventricular complexes in a pattern of bigeminy Possible Inferior infarct (cited on or before 30-JUL-2019) Abnormal ECG When compared with ECG of 19-OCT-2018 17:02, No significant change was found Confirmed by MD JOANNA, PENNY ([id number]) on 07/30/2019 8:54:38 AM MUSE SYSTEM 07/30/2019 12:5 1 AM EDT 07/30/2019 8:54 AM EDT Kimani Kiser MD ECG ORDERABLES MUSE SYSTEM * Request For 2nd Read CT Chest Abdomen Pelvis (07/30/2019 12:21 AM EDT) Anatomical Region Laterality Modality Chest, Abdomen, Pelvis SO Impressions 07/30/2019 1:42 AM EDT 1. ??Dependent right upper lobe contusion with adjacent small hemothorax. 2. ??Small left lower lobe dependent streaky opacity could be additional contusion versus atelectasis, aspiration, or potentially pneumonia. 3. ??RIGHT axillary hematoma and edema. 4. ??Multiple concomitant fractures as detailed above in the respective Nonspinal, Thoracic, and Lumbar sections above. 5. ??Please note, potential visceral or vascular injury/pathology cannot be excluded in the absence of intravenous contrast. Preliminary report signed by: Penny Bella at 07/30/2019 1:03 AM I have personally reviewed the image(s) and the resident's interpretation and agree with the findings, Huang Hernandez at 07/30/2019 1:42 AM Thank you for letting us participate in the care of this patient. For questions regarding this report, please contact the number below. ? Narrative 07/30/2019 1:42 AM EDT EXAMINATION: REQUEST FOR 2ND READ CT CHEST ABDOMEN PELVIS CLINICAL HISTORY: s/p fall; What Modality is the exam? CT Scan; Body Part (please add comments as necessary): chest abdomen pelvis; Sending Institution [facility]; Date of exam [id number]; I believe a reinterpretation of this exam may alter care of Patient. Yes TECHNIQUE: Reinterpretation request for outside: * ??Noncontrast CT chest/abdomen/pelvis. * ??CT thoracic spine reconstructions. * ??CT lumbar spine reconstructions. COMMENTS: Absence of intravenous contrast renders suboptimal assessment of potential masses, fluid collections, lymphadenopathy, as well as of the organs and viscera and cardiovascular structures. Absence of enteric contrast renders suboptimal assessment of bowel lumen and surrounding soft tissue structures. COMPARISON: None FINDINGS: CHEST: Lungs/Pleura: Right posterior upper lobe mild dependent attenuation opacity with adjacent small heterogeneous effusion, most consistent with a contusion. Dependent consolidative opacity in the left lung base. Mediastinum/Lizeth: Unremarkable. Cardiovascular: Unremarkable. ABDOMEN/PELVIS: Liver: Unremarkable. Gallbladder: Unremarkable. Spleen: Unremarkable. Pancreas: Unremarkable. Adrenal Glands: Unremarkable. RIGHT Kidney: Unremarkable. LEFT Kidney: Duplicated collecting system. Urinary Bladder: Unremarkable. GI: Unremarkable. Mesentery/Peritoneum: Unremarkable. Lymphatic System: Unremarkable. Vasculature: Focal infrarenal abdominal aortic ectasia up to 2.4 cm. External Soft Tissues: Muscle edema/hematoma about the RIGHT shoulder, with small RIGHT axillary hematoma and surrounding edema. Nonspinal Osseous Structures: * ??Comminuted fracture of the right humerus proximally centered about the greater without convincing extension to the glenohumeral joint space. * ??Subtle focal nondisplaced fracture of the right scapular spine medially. * ??Nondisplaced comminuted fractures of the right mid clavicle. * ??Question fracture of the RIGHT first rib head. * ??Nondisplaced fracture of the right second rib posteriorly with comminuted fracture of the head at the costovertebral junction. * ??Nondisplaced fracture of the RIGHT third rib neck at the costotransverse junction. Thoracic spine: * ??Nondisplaced fracture of the T1 and T4 RIGHT transverse processes. * ??Comminuted fracture of the T2 and T3 RIGHT transverse processes. Lumbar spine: Nondisplaced fractures of the L1 and L2 LEFT transverse processes. Procedure Note Huang Hernandez MD - 07/30/2019 EXAMINATION: REQUEST FOR 2ND READ CT CHEST ABDOMEN PELVIS CLINICAL HISTORY: s/p fall; What Modality is the exam? CT Scan; BodyPart (please add comments as necessary): chest abdomen pelvis; [facility]; Date of exam [id number]; I believe a reinterpretation of this exam mayalter care of Patient. Yes TECHNIQUE: Reinterpretation request for outside: * Noncontrast CT chest/abdomen/pelvis. * CT thoracic spine reconstructions. * CT lumbar spine reconstructions. COMMENTS: Absence of intravenous contrast renders suboptimal assessmentof potential masses, fluid collections, lymphadenopathy, as well as of theorgans and viscera and cardiovascular structures. Absence of enteric contrastrenders suboptimal assessment of bowel lumen and surrounding soft tissuestructures. COMPARISON: None FINDINGS: CHEST: Lungs/Pleura: Right posterior upper lobe mild dependent attenuationopacity with adjacent small heterogeneous effusion, most consistent with a contusion. Dependent consolidative opacity in the left lung base. Mediastinum/Lizeth: Unremarkable. Cardiovascular: Unremarkable. ABDOMEN/PELVIS: Liver: Unremarkable. Gallbladder: Unremarkable. Spleen: Unremarkable. Pancreas: Unremarkable. Adrenal Glands: Unremarkable. RIGHT Kidney: Unremarkable. LEFT Kidney: Duplicated collecting system. Urinary Bladder: Unremarkable. GI: Unremarkable. Mesentery/Peritoneum: Unremarkable. Lymphatic System: Unremarkable. Vasculature: Focal infrarenal abdominal aortic ectasia up to 2.4 cm. External Soft Tissues: Muscle edema/hematoma about the RIGHT shoulder,with small RIGHT axillary hematoma and surrounding edema. Nonspinal Osseous Structures: * Comminuted fracture of the right humerus proximally centered aboutthe greater without convincing extension to the glenohumeral joint space. * Subtle focal nondisplaced fracture of the right scapular spinemedially. * Nondisplaced comminuted fractures of the right mid clavicle. * Question fracture of the RIGHT first rib head. * Nondisplaced fracture of the right second rib posteriorly withcomminuted fracture of the head at the costovertebral junction. * Nondisplaced fracture of the RIGHT third rib neck at thecostotransverse junction. Thoracic spine: * Nondisplaced fracture of the T1 and T4 RIGHT transverse processes. * Comminuted fracture of the T2 and T3 RIGHT transverse processes. Lumbar spine: Nondisplaced fractures of the L1 and L2 LEFT transverseprocesses. IMPRESSION 1. Dependent right upper lobe contusion with adjacent small hemothorax. 2. Small left lower lobe dependent streaky opacity could be additional contusion versus atelectasis, aspiration, or potentially pneumonia. 3. RIGHT axillary hematoma and edema. 4. Multiple concomitant fractures as detailed above in the respective Nonspinal, Thoracic, and Lumbar sections above. 5. Please note, potential visceral or vascular injury/pathology cannotbe excluded in the absence of intravenous contrast. Preliminary report signed by: Penny Bella at 07/30/2019 1:03 AM I have personally reviewed the image(s) and the resident's interpretationand agree with the findings, Huang Hernandez at 07/30/2019 1:42 AM Thank you for letting us participate in the care of this patient. Forquestions regarding this report, please contact the number below. Kimani Kiser MD IMG OUTSIDE INTERPRE TATION ORDERABLES * (ABNORMAL) Request For 2nd Read CT [...] exclude potential malignancy. Alternatively, depending on the [id number], this can potentially be reevaluated on clinically-decided follow-up examination of the intracranial hyperdense foci. Preliminary report signed by: Penny Bella at 07/30/2019 1:15 AM I have personally reviewed the image(s) and the resident's interpretation and agree with the findings, Huang Hernandez at 07/30/2019 2:19 AM Thank you for letting us participate in the care of this patient. For questions regarding this report, please contact the number below. ? Narrative 07/30/2019 2:19 AM EDT EXAMINATION: REQUEST FOR 2ND READ CT HEAD AND SPINE CLINICAL HISTORY: s/p fall; What Modality is the exam? CT Scan; Body Part (please add comments as necessary): Head and C spine; Sending Institution [facility]; Date of exam [id number]; I believe [...] as necessary): Head and C spine; [facility] Date of exam [id number]; I believe [...] exclude potential malignancy. Alternatively, depending on the [id number], this can potentially be reevaluated on clinically-decided follow-up examination of theintracranial hyperdense foci. Preliminary report signed by: Penny Bella at 07/30/2019 1:15 AM I have personally reviewed the image(s) and the resident's interpretationand agree with the findings, Huang Hernandez at 07/30/2019 2:19 AM Thank you for letting us participate in the care of this patient. Forquestions regarding this report, please contact the number below. Kimani Kiser MD IMG OUTSIDE [facility] TATION ORDERABLES * XR Chest One View (07/30/2019 12:05 AM EDT) Anatomical Region Laterality Modality Chest N/A Digital Radiogra phy Impressions 07/30/2019 1:08 AM EDT 1. ??Diffuse hazy opacity of the left mid and lower hemithorax which could represent atelectasis, consolidation, contusion, effusion. 2. ??Mild hazy opacity in the right upper hemithorax which could also represent atelectasis or a contusion. 3. ??Mildly displaced fracture of the right proximal humerus and nondisplaced fracture of the right clavicle. Preliminary report signed by: Penny Bella at 07/30/2019 12:28 AM I have personally reviewed the image(s) and the resident's interpretation and agree with the findings, Huang Hernandez at 07/30/2019 1:08 AM Thank you for letting us participate in the care of this patient. For questions regarding this report, please contact the number below. ? Narrative 07/30/2019 1:08 AM EDT EXAMINATION: XR CHEST ONE VIEW CLINICAL HISTORY: fall down stairs. ? fx TECHNIQUE: 1 view of the chest AP supine. COMPARISON: Outside CT from 07/29/2019. FINDINGS: Diffuse hazy opacity in the left mid and lower hemithorax. Mild hazy opacity in the right upper hemithorax. The cardiac silhouette is obscured. Nonspecific pulmonary vascular prominence. Mildly displaced fracture of the right proximal humerus. Nondisplaced fracture of the right mid clavicle. Median sternotomy wires and cardiac surgical clips are present. Procedure Note Huang Hernandez MD - 07/30/2019 EXAMINATION: XR CHEST ONE VIEW CLINICAL HISTORY: fall down stairs. ? fx TECHNIQUE: 1 view of the chest AP supine. COMPARISON: Outside CT from 07/29/2019. FINDINGS: Diffuse hazy opacity in the left mid and lower hemithorax. Mild hazyopacity in the right upper hemithorax. The cardiac silhouette is obscured.Nonspecific pulmonary vascular prominence. Mildly displaced fracture of the rightproximal humerus. Nondisplaced fracture of the right mid clavicle. Mediansternotomy wires and cardiac surgical clips are present. IMPRESSION 1. Diffuse hazy opacity of the left mid and lower hemithorax whichcould represent atelectasis, consolidation, contusion, effusion. 2. Mild hazy opacity in the right upper hemithorax which could alsorepresent atelectasis or a contusion. 3. Mildly displaced fracture of the right proximal humerus andnondisplaced fracture of the right clavicle. Preliminary report signed by: Penny Bella at 07/30/2019 12:28 AM I have personally reviewed the image(s) and the resident's interpretationand agree with the findings, Huang Hernandez at 07/30/2019 1:08 AM Thank you for letting us participate in the care of this patient. Forquestions regarding this report, please contact the number below. Aaron Dover MD IMG DX ORDERABLES * (ABNORMAL) Hemoglobin A1c (07/29/2019 11:59 PM EDT) Hemoglobin A1c 8.6(H) 4.3 - 5.6 % [facility] Comment: Reference Range: 4.3 - [...] 36: Suppl. 1, S67-74 Estimated Average Glucose 201 mg/dL [facility] Comment: eAG equivalents for HbA1c [...] into estimated average glucose values. ??Diabetes Care 2008:31(8):7343-5489. Blood specimen (specimen) Venous Draw / Unknown 07/29/2019 11:59 PM EDT 07/30/2019 4:51 PM EDT Narrative Resulting Agency Comment Spec In Lab Narcisa Tovar APRN CHEMISTRY ORDERABLE S [facility] [place] [address] * (ABNORMAL) Troponin (07/29/2019 11:59 PM EDT) Troponin-T 0.07(H) 0.00 - 0.00 ng/mL [facility] Comment: Called by: JOHANNA, Read back by: Paula Mallory, Date/Time:07/30/19 01:23. The 99th percentile for Troponin T is less than 0.01 ng/mL, any detectable cTnT concentration using this assay should be considered elevated. According to the third universal definition of myocardial infarction the following criteria with a clinical presentation consistent with acute myocardial ischemia meets the diagnosis for a myocardial infarction ([place]). Detection of a rise and/or fall of cTnT, with at least one value greater than the 99th percentile (> or = 0.01) and with at least one of the following ?? Symptoms of ischemia ?? New or presumed new significant SG-lmoavzj-G wave (ST-T) changes or new left bundle branch block (LBBB) ?? Development of pathologic Q waves in the ECG ?? Imaging evidence of new loss of viable myocardium or new regional wall motion abnormality ?? Identification of an intracoronary thrombus by angiography or autopsy Samples for cTnT testing should be obtained serially upon first assessment and again 3 to 6 hours later. If the clinical suspicion is high and previous samples have been negative an additional sample may be indicated. Reference: Third [place] Definition of Myocardial Infarction. Journal of the [place] College [employer]iology 2012;60:1581-98 Blood specimen (specimen) Venous Draw / Unknown 07/29/2019 11:59 PM EDT 07/30/2019 12:04 AM EDT Narrative Resulting Agency Comment Spec In Lab Kimani Kiser MD CHEMISTRY ORDERABLES Performing Organization Address [facility] Co de Phone Number [facility] [address] * ABORH Recheck Status (07/29/2019 11:59 PM EDT) ABORH Type Recheck Completed [facility] Blood specimen (specimen) 07/29/2019 11:59 PM EDT 07/30/2019 12:03 AM EDT Narrative Resulting Agency Comment Spec In Lab Aaron Dover MD BLOOD BANK LAB ORDER ROBBIE Performing Organization Address City/[facility] Co de Phone Number [facility] [place] [address] * Antibody screen (07/29/2019 11:59 PM EDT) Pathologist [facility] Ab Screen Interp Negative [facility] Expires at [id number] on: 08/01/2019 [facility] Blood specimen (specimen) 07/29/2019 11:59 PM EDT 07/30/2019 12:03 AM EDT Narrative Resulting Agency Comment Spec In Lab Aaron Dover MD BLOOD BANK LAB ORDER ROBBIE [facility] [place] [address] * ABO/Rh Typing (07/29/2019 11:59 PM EDT) [facility] ABORH Type A Pos [facility] Blood specimen (specimen) 07/29/2019 11:59 PM EDT 07/30/2019 12:03 AM EDT Narrative Resulting Agency Comment Spec In Lab Aaron Dover MD BLOOD BANK LAB ORDER ROBBIE Performing Organization Address City/[facility]/ZIP Co de Phone Number [facility] [place] [address] * Gold Tube HOLD (07/29/2019 11:59 PM EDT) [facility] Gold Hold Sample in lab. [facility] Blood specimen (specimen) Venous Draw / Unknown 07/29/2019 11:59 PM EDT 07/30/2019 12:05 AM EDT Kimani Kiser MD CHEMISTRY ORDERABLES [facility] [place] [address] * (ABNORMAL) Differential, Automated (07/29/2019 11:59 PM EDT) [facility] Neutrophil % 83.4 % [facility] Neutrophil Absolute 9.43(H) 1.70 - 6.10 x10(3)/[facility] Lymph % 8.0 % [facility] Lymphocytes Abs 0.9 0.9 - 3.2 x10(3)/[facility] Monocyte % 6.9 % [facility] Monocyte Abs 0.8 0.3 - 0.9 x10(3)/[facility] Eos % 0.7 % [facility] Eosinophils Abs 0.1 0.0 - 0.4 x10(3)/[facility] Basophil % 0.3 % [facility] Baso Absolute 0.0 0.0 - 0.1 x10(3)/[facility] Immature Gran % 0.70 % [facility] Comment: Immature granulocytes(IG's)percentage and absolute count will include metamyelocytes, myelocytes, and promyelocytes. Blood smears from CBCs yielding IG's will be scanned manually for concordance. If this scan disagrees with the automated IG or if promyelocytes are noted, a manual differential will be performed. Immature Gran Absolute 0.08(H) 0.00 - 0.04 x10(3)/[facility] Blood specimen (specimen) 07/29/2019 11:59 PM EDT 07/30/2019 12:04 AM EDT Narrative Resulting Agency Comment Spec In Lab Kimani Kiser MD HEMATOLOGY ORDERABLE S [facility] [place] [address] * (ABNORMAL) Hemogram (07/29/2019 11:59 PM EDT) White Blood Cell 11.3(H) 4.0 - 9.5 x10(3)/[facility] Red Blood Cell 3.37(L) 4.58 - 5.54 x10(6)/[facility] Hemoglobin 10.9(L) 13.7 - 16.5 gm/dL [facility] Hematocrit 32.1(L) 40.5 - 48.5 % [facility] Mean Cell Volume 95.3(H) 82.9 - 93.1 fL [facility] Mean Cell Hemoglobin 32.3(H) 27.5 - 32.1 pg [facility] Mean Cell Hemoglobin Concentration 34.0 32.0 - 35.7 gm/dL [facility] Platelet 135(L) 145 - 357 x10(3)/mc L [facility] RDW Standard Deviation 47.7(H) 36.0 - 45.0 fL [facility] RDW coefficient of variation 13.9(H) 11.4 - 13.8 % [facility] Mean Platelet Volume 9.7 7.6 - 12.9 [facility] LABORATORY NRBC% auto 0.0 % [facility] NRBC Absolute 0.000 0.000 - 0.000 x10(3)/mc L [facility] Blood specimen (specimen) 07/29/2019 11:59 PM EDT 07/30/2019 12:04 AM EDT Narrative Resulting Agency Comment Spec In Lab Kimani Kiser MD HEMATOLOGY ORDERABLE S [facility] [place] [address] * L-Lactate2 Whole Blood (07/29/2019 11:59 PM EDT) Lactate WB 1.2 0.5 - 2.2 mmol/L [facility] Blood specimen (specimen) 07/29/2019 11:59 PM EDT 07/29/2019 11:[address] Evgeny Paez MD CHEMISTRY ORDERABLES [facility] [place] [address] * Ethanol Level (07/29/2019 11:59 PM EDT) Ethanol <100 <=99 mg/L [facility] Comment: Greater than 800 mg/L (0.08%) should be considered intoxicated. 3400 to 4500 mg/L (0.34 - 0.45%) is considered severe intoxication. Greater than 5500 mg/L (0.55%) is usually fatal. Blood specimen (specimen) 07/29/2019 11:59 PM EDT 07/30/2019 12:04 AM EDT Narrative Resulting Agency Comment Spec In Lab Kimani Kiser MD CHEMISTRY ORDERABLES Performing Organization Address [facility] Co de Phone Number [facility] [place] [address] * APTT (07/29/2019 11:59 PM EDT) Partial Thromboplastin Time 34 25 - 37 sec [facility] Comment: The PTT is NOT appropriate for heparin monitoring. Use the Anti-Xa level for heparin monitoring (HEP UFH) or LMWH monitoring (HEP LMW). A PTT less than 37 seconds generally indicates adequate hemostasis. Blood specimen (specimen) 07/29/2019 11:59 PM EDT 07/30/2019 12:04 AM EDT Narrative Resulting Agency Comment Spec In Lab Kimani Kiser MD HEMATOLOGY ORDERABLE S Performing Organization Address [facility] Co de Phone Number [facility] [place] [address] * Prothrombin Time (07/29/2019 11:59 PM EDT) Prothrombin Time 12.1 9.4 - 12.5 sec [facility] International Normalization Ratio 1.0 [facility] Comment: An INR <2.0 indicates [...] depending on clinical circumstances. Blood specimen (specimen) 07/29/2019 11:59 PM EDT 07/30/2019 12:04 AM EDT Narrative Resulting Agency Comment Spec In Lab Kimani Kiser MD HEMATOLOGY ORDERABLE S [facility] [place] [address] * (ABNORMAL) Basic Metabolic Panel (non-fasting) (07/29/2019 11:59 PM EDT) Glucose 159 65 - 199 mg/dL [facility] Comment:Diabetes: >=200 mg/d L plus symptoms Blood Urea Nitrogen 34(H) 10 - 20 mg/dL [facility] Creatinine 4.59(H) 0.80 - 1.50 mg/dL [facility] Sodium 136 135 - 145 mmol/L [facility] Potassium 3.9 3.5 - 5.0 mmol/L [facility] Comment: Please note: ??Patients with WBC >100,000 may have falsely elevated Potassium levels. ??For accurate Potassium quantification in these patients send serum separator tube (gold top) for subsequent determinations. ??Contact the Clinical Chemistry Laboratory if there are any questions. Chloride 93(L) 98 - 107 mmol/L [facility] Carbon Dioxide 31 22 - 31 mmol/L [facility] Anion Gap 12 5 - 15 mmol/L [facility] Calcium 8.8 8.5 - 10.5 mg/dL [facility] Est Glomerular Filtration Rate 13(L) >=60 mL/min/1. 73 m?? [facility] Comment: The eGFR was calculated using the CKD-EPI equation. As with all creatinine based estimates of kidney function, eGFR values calculated with the CKD-EPI equation are not accurate in patients with acute kidney failure, extremes of body mass or the acutely ill. [email or web address] CITYnkf eGFR 15(L) >=60 mL/min/1. 73 m?? [facility] Comment: The eGFR was calculated using the CKD-EPI equation. As with all creatinine based estimates of kidney function, eGFR values calculated with the CKD-EPI equation are not accurate in patients with acute kidney failure, extremes of body mass or the acutely ill. [email or web address] Blood specimen (specimen) 07/29/2019 11:59 PM EDT 07/30/2019 12:04 AM EDT Narrative Resulting Agency Comment Spec In Lab Kimani Kiser MD CHEMISTRY ORDERABLES Performing Organization Address City/[facility]/ZIP Co de Phone Number [facility] [place] [address] * Film Library- Storage Only DX Upper Extremity (07/29/2019 10:14 PM EDT) Narrative [facility] - 07/29/2019 10:14 PM EDT This exam is auto-finalizing. It's purpose is for storage only. Aaron Dover MD [facility] FILM LIBRARY ORD ERABLES Performing Organization Address [facility] de Phone Number [place], [place] * Film Library- Storage Only DX Hip (07/29/2019 10:12 PM EDT) Narrative [facility] - 07/29/2019 10:12 PM EDT This exam is auto-finalizing. It's purpose is for storage only. Aaron Dover MD [facility] FILM LIBRARY ORD ERABLES Performing Organization Address [facility] Co de Phone Number [place], [place] * Film Library- Storage Only DX Shoulder (07/29/2019 10:11 PM EDT) Narrative [facility] - 07/29/2019 10:11 PM EDT This exam is auto-finalizing. It's purpose is for storage only. Aaron Dover MD [facility] FILM LIBRARY ORD ERABLES Performing Organization Address [facility] de Phone Number [place], [place] documented in this encounter Visit Diagnoses Diagnosis Fall, initial encounter Closed fracture of proximal end of right humerus, unspecified fracture morphology, initial encounter Closed nondisplaced fracture of right clavicle, unspecified part of clavicle, initial encounter Closed fracture of right scapula, unspecified part of scapula, initial encounter Closed nondisplaced fracture of shaft of right clavicle, initial encounter Troponin level elevated Other abnormal blood chemistry Closed fracture of right proximal humerus Closed fracture of unspecified part of upper end of humerus Closed nondisplaced fracture of shaft of right clavicle Closed fracture of shaft of clavicle Right scapula fracture Closed fracture of unspecified part of scapula Fall Unspecified fall documented in this encounter Admitting Diagnoses Diagnosis Fall Unspecified fall documented in this encounter Administered Medications Inactive Administered Medications - up to 3 most recent administrations Medication Order MAR Action Action Date Dose Rate Site acetaminophen (Tylenol) (32.02 mg/mL) oral liquid 650 mg 650 mg, Oral, EVERY 6 HOURS PRN, Starting on Tue07/30/19 at 0106, Until Tue07/30/19 at 0647, Pain, Fever, Maximum dose of acetaminophen is 4000 mg from all sources in 24 hours. Should be given concomitantly if other Analgesics are ordered., Routine Given 07/30/2019 6:19 AM EDT 650 mg acetaminophen (Tylenol) tablet 1,000 mg 1,000 mg, Oral, EVERY 6 HOURS SCHEDULED, First dose on Tue07/30/19 at 0715, Until Discontinued, Maximum dose of acetaminophen is 4000 mg from all sources in 24 hours., Routine Given 08/04/2019 1:00 PM EDT 1,000 mg Given 08/03/2019 11:40 PM EDT 1,000 mg Given 08/03/2019 5:39 PM EDT 1,000 mg amLODIPine (Norvasc) tablet 5 mg 5 mg, Oral, DAILY, First dose on Tue07/31/19 at 0900, Until Discontinued, Routine Given 08/04/2019 8:16 AM EDT 5 mg Given 08/03/2019 8:52 AM EDT 5 mg Given 08/02/2019 1:57 PM EDT 5 mg atorvastatin (Lipitor) tablet 10 mg 10 mg, Oral, EVERY EVENING, First dose on Tue07/30/19 at 1700, Until Discontinued, Routine Given 08/03/2019 5:39 PM EDT 10 mg Given 08/02/2019 4:14 PM EDT 10 mg Given 08/01/2019 4:47 PM EDT 10 mg bisacodyL (Dulcolax) suppository 10 mg 10 mg, Rectal, ONCE, 1 dose, On Tue08/01/19 at 1730, Routine Given 08/01/2019 6:07 PM EDT 10 mg bumetanide (Bumex) tablet 2 mg 2 mg, Oral, 2 TIMES DAILY, First dose on Tue07/30/19 at 1600, Until Discontinued, Routine Given 08/04/2019 8:15 AM EDT 2 mg Given 08/03/2019 5:39 PM EDT 2 mg Given 08/03/2019 8:53 AM EDT 2 mg dextrose 10% infusion 250 mL, at 1,000 mL/hr, Intravenous, EVERY 30 MIN PRN, Starting on Tue07/30/19 at 0126, Until 08/04/19 at 1803, For BG 50-70 mg/dL: Oral treatment preferred:?? If able to drink, give 120 mL Juice or Regular (not diet) soda OR If NPO, give 15 gram glucose 40% oral gel massaged into buccal mucosa OR if unconscious or uncooperative, give 25 gram (250 mL) Dextrose 10% IV over 15 minutes per protocol OR, if no IV access, 1 mg Glucagon IM. For BG less than 50 mg/dL: Oral treatment preferred:?? If able to drink, give 240 mL Juice or Regular (not diet) soda OR If NPO, give 30 gram glucose 40% oral gel massaged in buccal mucosa OR if unconscious or uncooperative, give 25 gram (250 mL) Dextrose 10% IV over 15 minutes per protocol OR, if no IV access, 1 mg Glucagon IM. Recheck BG in 30 minutes. May repeat juice/soda, gel, dextrose or glucagon once per episode. For persistent hypoglycemia, consider longer-acting treatment for the duration of the active insulin. epoetin babs-epbx (Retacrit) injection 10,000 Units 10,000 Units, Intravenous, ONCE IN DIALYSIS PRN, 1 dose, Starting on Tue07/31/19 at 0702, Until Tue07/31/19 at 1126, Other, Dialysis (Intra-Procedure), Routine, What is the indication of use? End Stage Renal Disease (ESRD) on dialysis Given 07/31/2019 11:26 AM EDT 10,000 Units epoetin babs-epbx (Retacrit) injection 10,000 Units 10,000 Units, Intravenous, ONCE IN DIALYSIS PRN, 1 dose, Starting on Barbara 08/02/19 at 0707, Until Barbara 08/02/19 at 1231, Other, Dialysis (Intra-Procedure), Routine, What is the indication of use? End Stage Renal Disease (ESRD) on dialysis Given 08/02/2019 12:31 PM EDT 10,000 Units epoetin babs-epbx (Retacrit) injection 10,000 Units 10,000 Units, Intravenous, ONCE IN DIALYSIS PRN, 1 dose, Starting on Tue08/03/19 at 1628, Until 08/04/19 at 1203, Other, Dialysis (Intra-Procedure), Routine, What is the indication of use? End Stage Renal Disease (ESRD) on dialysis Given 08/04/2019 12:03 PM EDT 10,000 Units famotidine (Pepcid) tablet 20 mg 20 mg, Oral, DAILY, First dose (after last reorder) on Tue07/30/19 at 0900, Until Discontinued, If unable to take PO, may give IV, Routine Given 07/30/2019 8:20 AM EDT 20 mg fentaNYL (PF) 50mcg/mL injection 50 mcg, Intravenous, PER TRAUMA ANALGESIC PROTOCOL, Starting on Tue07/29/19 at 2354, Until Tue07/30/19 at 0647, Pain, Every 5-15 minutes PRN, STAT Given 07/30/2019 6:20 AM EDT 50 mcg gabapentin (Neurontin) capsule 300 mg 300 mg, Oral, 3 TIMES DAILY, First dose on Tue07/30/19 at 1500, Until Discontinued, Routine Given 08/04/2019 8:16 AM EDT 300 mg Given 08/03/2019 8:06 PM EDT 300 mg Given 08/03/2019 3:00 PM EDT 300 mg glucagon (human recombinant) injection SolR 1 mg 1 mg, Intramuscular, EVERY 30 MIN PRN, Starting on Tue07/30/19 at 0126, Until 08/04/19 at 1803, Low blood sugar, For BG 50-70 mg/dL: Oral treatment preferred:?? If able to drink, give 120 mL Juice or Regular (not diet) soda OR If NPO, give 15 gram glucose 40% oral gel massaged into buccal mucosa OR if unconscious or uncooperative, give 25 gram (250 mL) Dextrose 10% IV over 15 minutes per protocol OR, if no IV access, 1 mg Glucagon IM. For BG less than 50 mg/dL: Oral treatment preferred:?? If able to drink, give 240 mL Juice or Regular (not diet) soda OR If NPO, give 30 gram glucose 40% oral gel massaged in buccal mucosa OR if unconscious or uncooperative, give 25 gram (250 mL) Dextrose 10% IV over 15 minutes per protocol OR, if no IV access, 1 mg Glucagon IM. Recheck BG in 30 minutes. May repeat juice/soda, gel, dextrose or glucagon once per episode. For persistent hypoglycemia, consider longer-acting treatment for the duration of the active insulin., Routine glucose (GLUTOSE) 40% oral gel 15-30 g, Buccal, EVERY 30 MIN PRN, Starting on 07/30/19 at 0126, Until 08/04/19 at 1803, Low blood sugar, For BG 50-70 mg/dL: Oral treatment preferred:?? If able to drink, give 120 mL Juice or Regular (not diet) soda OR If NPO, give 15 gram glucose 40% oral gel massaged into buccal mucosa OR if unconscious or uncooperative, give 25 gram (250 mL) Dextrose 10% IV over 15 minutes per protocol OR, if no IV access, 1 mg Glucagon IM. For BG less than 50 mg/dL: Oral treatment preferred:?? If able to drink, give 240 mL Juice or Regular (not diet) soda OR If NPO, give 30 gram glucose 40% oral gel massaged in buccal mucosa OR if unconscious or uncooperative, give 25 gram (250 mL) Dextrose 10% IV over 15 minutes per protocol OR, if no IV access, 1 mg Glucagon IM. Recheck BG in 30 minutes. May repeat juice/soda, gel, dextrose or glucagon once per episode. For persistent hypoglycemia, consider longer-acting treatment for the duration of the active insulin. 1 tube contains 15 grams of glucose (net weight of tube = 37.5 grams., Routine heparin (porcine) 1,000 unit/mL injection 1,000-10,000 Units 1,000-10,000 Units, Intercatheter, ONCE IN DIALYSIS PRN, 1 dose, Starting on Tue07/31/19 at 0702, Until 08/04/19 at 1803, Line Care, Per Protocol, Catheter lock use catheter specified fill volume per dialysis protocol. For use in Dialysis only. Procedure ID: [id number] (Hemodialysis CVAD Procedure - Care and Maintenance) in Clinical Policies., Dialysis (Intra-Procedure), Routine heparin (porcine) 1,000 unit/mL injection 3,000 Units 3,000 Units, Intravenous, ONCE IN DIALYSIS, 1 dose, On Tue07/31/19 at 0730, For use in Dialysis only., Dialysis (Intra-Procedure), Routine Given 07/31/2019 8:00 AM EDT 3,000 Un its heparin (Porcine) subcutaneous injection 5,000 Units 5,000 Units, Subcutaneous, EVERY 8 HOURS SCHEDULED, First dose on Tue07/31/19 at 1445, Until Discontinued, Routine Given 08/04/2019 1:00 PM EDT 5,000 Unit s Given 08/04/2019 6:28 AM EDT 5,000 Units Given 08/03/2019 9:44 PM EDT 5,000 Units hydrALAZINE (APRESOLINE) injection 10 mg 10 mg, Intravenous, EVERY 1 HOUR PRN, Starting on Tue07/30/19 at 0023, Until 08/04/19 at 0820, High Blood Pressure, Target systolic blood pressure (SBP) less than 160 mmHg. Administer 10 mg IV . May repeat once in 15 minutes if SBP greater than target BP (caution if HR greater than 90). Use if labetalol ineffective after 1 hour. Given 07/30/2019 11:12 PM EDT 10 mg HYDROmorphone (DILAUDID) injection 0.3 mg 0.3 mg, Intravenous, EVERY 2 HOURS PRN, Starting on Tue07/30/19 at 0106, Until Tue07/30/19 at 0624, Pain, Severe pain, Routine Given 07/30/2019 4:56 AM E DT 0.3 mg Given 07/30/2019 2:03 AM EDT 0.3 mg HYDROmorphone (Dilaudid) tablet 2 mg 2 mg, Oral, EVERY 4 HOURS PRN, Starting on Tue07/31/19 at 2153, Until Tue08/03/19 at 1544, Pain, for moderate pain (4-5), May give an additional 2 mg once if pain not relieved in 30-60 minutes., Routine Given 08/03/2019 9:45 AM EDT 2 mg Given 08/01/2019 5:51 AM EDT 2 mg HYDROmorphone (Dilaudid) tablet 4 mg 4 mg, Oral, EVERY 4 HOURS PRN, Starting on Tue07/30/19 at 1456, Until Tue07/31/19 at 2154, Pain, for severe pain (8-10), May give an additional 2 mg once if pain not relieved in 30-60 minutes., Routine Given 07/31/2019 6:06 PM EDT 4 mg Given 07/31/2019 1:01 PM EDT 4 mg Given 07/31/2019 4:42 AM EDT 4 mg HYDROmorphone (Dilaudid) tablet 4-6 mg 4-6 mg, Oral, EVERY 4 HOURS PRN, Starting on Tue07/31/19 at 2153, Until Tue08/03/19 at 0642, Pain, for severe pain (6-10), For Pain 6-7 give 4mg, pain 8-10 6mg, Routine Given 08/02/2019 8:11 PM EDT 6 mg Given 08/02/2019 1:56 PM EDT 6 mg Given 08/02/2019 6:56 AM EDT 6 mg insulin glargine VIAL injection 30 Units 30 Units, Subcutaneous, EVERY 24 HOURS, First dose on Tue07/30/19 at 1245, Until Discontinued, STAT Given 08/04/2019 1:07 PM EDT 30 Units Given 08/03/2019 11:55 AM EDT 30 Units Given 08/02/2019 1:58 PM EDT 30 Units insulin lispro (HumaLOG) VIAL injection 0-15 Units 0-15 Units, Subcutaneous, ONCE, 1 dose, On Tue07/30/19 at 1245, [employer] Give 1 unit for every 8 grams carbohydrate. Hold if not eating or if BG less than 70, Routine Given 07/30/2019 1:01 PM EDT 4 Units insulin lispro (HumaLOG) VIAL injection 0-15 Units 0-15 Units, Subcutaneous, 3 TIMES DAILY WITH MEALS, First dose on Tue07/30/19 at 1700, Until Discontinued, [employer] Give 1 unit for every 8 grams carbohydrate. Hold if not eating or if BG less than 70, Routine Given 08/01/2019 6:07 PM EDT 1 Units Given 08/01/2019 10:35 AM EDT 2 Units Given 07/31/2019 6:13 PM EDT 3 Units insulin lispro (HumaLOG) VIAL injection 1-6 Units 1-6 Units, Subcutaneous, EVERY 4 HOURS SCHEDULED, First dose on Tue07/30/19 at 0129, Until Discontinued, CORRECTION BOLUS [1-6 Units] Moderate Sliding Scale: Correction factor 20 (1 unit of insulin is expected to drop the glucose 20 mg/dL) BG 140 - 160 Give 1 unit BG 161 - 180 Give 2 units BG 181 - 200 Give 3 units BG 201 - 220 Give 4 units BG 221 - 240 Give 5 units BG greater than 240, give 6 units and recheck BG in 2 hours. - If recheck BG is LESS than 240, give no insulin and resume schedule. - If recheck BG is GREATER than 240, give 6 units and repeat BG in 2 hours (no more than 3 times) & call for new insulin orders. DO NOT hold if NPO, unless specifically told to do so. Per Blood Glucose Monitoring Policy, re-check a BG of > 240 in 2 hours., Routine Given 08/04/2019 8:15 AM EDT 1 Units Given 08/03/2019 8:06 PM EDT 3 Units Given 08/03/2019 3:53 PM EDT 2 Units iohexoL (OMNIPAQUE) 350 mg/mL solution 0-200 mL 0-200 mL, Intravenous, ONCE PRN, 1 dose, Starting on Tue07/30/19 at 0747, Until Tue07/30/19 at 0811, Per Protocol, Warning Vesicant/Irritant Medication , Radiology Contrast, Routine Given 07/30/2019 8:11 AM EDT 65 mLs levETIRAcetam (Keppra) tablet 500 mg 500 mg, Oral, EVERY 12 HOURS SCHEDULED (2 times per day), 14 doses, First dose on Tue07/31/19 at 0900, Last dose on Tue08/06/19 at 2100, Routine Given 08/04/2019 8:16 AM EDT 500 mg Given 08/03/2019 8:06 PM EDT 500 mg Given 08/03/2019 8:53 AM EDT 500 mg lidocaine (LIDODERM) 5 % patch 3 patch 3 patch, Transdermal, EVERY 24 HOURS, First dose on Tue07/30/19 at 0715, Until Discontinued, Apply patch(es) for 12 hours, and then remove for 12 hours, Routine Patch Applied 08/04/2019 6:28 AM EDT 3 patches 04- Shoulder (Right) Patch Applied 08/03/2019 8:54 AM EDT 3 patches 10- Arm Upper (Right) Patch Applied 08/02/2019 6:44 AM EDT 3 patches 04- Shoulder (Right) lidocaine (LIDODERM) patch REMOVAL Transdermal, EVERY 24 HOURS, First dose on Tue07/30/19 at 1845, Until Discontinued, Remove lidocaine 5 %(700 mg/patch) patch losartan (Cozaar) tablet 50 mg 50 mg, Oral, DAILY, First dose on Tue07/30/19 at 1345, Until Discontinued, Hold SBP <100, Routine Given 08/04/2019 8:16 AM EDT 50 mg Given 08/03/2019 8:52 AM EDT 50 mg Given 08/02/2019 1:57 PM EDT 50 mg melatonin tablet 3 mg 3 mg, Oral, NIGHTLY, First dose on Tue07/30/19 at 2315, Until Discontinued, Routine Given 08/02/2019 8:11 PM EDT 3 mg Given 08/01/2019 8:03 PM EDT 3 mg Given 07/31/2019 9:40 PM EDT 3 mg melatonin tablet 6 mg 6 mg, Oral, NIGHTLY, First dose (after last modification) on Tue08/03/19 at 2100, Until Discontinued, Routine Given 08/03/2019 11:40 PM EDT 6 mg oxyCODONE (Roxicodone) tablet 5-10 mg 5-10 mg, Oral, EVERY 4 HOURS PRN, Starting on Tue07/30/19 at 0624, Until Tue07/30/19 at 1457, Pain, moderate pain (4-6), Initial dose 5mg. If pain control not adequate in 60 minutes, give additional 5mg, Routine Given 07/30/2019 12:22 PM EDT 10 mg Given 07/30/2019 8:20 AM EDT 5 mg Given 07/30/2019 6:39 AM EDT 10 mg pantoprazole EC (Protonix) tablet 40 mg 40 mg, Oral, EVERY 24 HOURS, First dose on Tue07/30/19 at 2200, Until Discontinued, DO NOT CRUSH OR OPEN Given 08/03/2019 8:06 PM EDT 40 mg Given 08/02/2019 8:11 PM EDT 40 mg Given 08/01/2019 11:56 PM EDT 40 mg polyethylene glycol (Miralax) packet 17 g 17 g, Oral, DAILY, First dose on Tue07/30/19 at 0900, Until Discontinued, Routine Given 08/04/2019 8:15 AM EDT 17 g Given 08/03/2019 8:53 AM EDT 17 g Given 08/02/2019 2:09 PM EDT 17 g senna (Senokot) tablet 8.6 mg 8.6 mg, Oral, 2 TIMES DAILY, First dose on Tue07/30/19 at 0900, Until Discontinued, Routine Given 08/04/2019 8:16 AM EDT 8.6 mg Given 08/03/2019 8:06 PM EDT 8.6 mg Given 08/03/2019 8:53 AM EDT 8.6 mg sertraline (Zoloft) tablet 50 mg 50 mg, Oral, DAILY, First dose on Tue07/30/19 at 1345, Until Discontinued, Routine Given 08/04/2019 8:16 AM EDT 50 mg Given 08/03/2019 8:53 AM EDT 50 mg Given 08/02/2019 1:56 PM EDT 50 mg sevelamer carbonate (Renvela) tablet 800 mg 800 mg, Oral, 3 TIMES DAILY WITH MEALS, First dose on Tue07/30/19 at 1700, Until Discontinued, DO NOT CRUSH OR OPEN, Routine Given 08/04/2019 1:00 PM EDT 800 mg Given 08/04/2019 8:16 AM EDT 800 mg Given 08/03/2019 5:39 PM EDT 800 mg sodium chloride 0.9 % (flush) flush 5 mL 5 mL, Intravenous, 2 TIMES DAILY, First dose on Tue07/30/19 at 0108, Until Discontinued, Recovery (Recovery-Hospital Unit), Routine Given 08/02/2019 8:17 PM EDT 5 mLs Given 08/02/2019 8:01 AM EDT 5 mLs Given 08/01/2019 8:04 PM EDT 5 mLs sodium chloride 0.9 % (flush) flush 5-20 mL 5-20 mL, Intravenous, EVERY 1 MIN PRN, Starting on Tue07/30/19 at 0106, Until 08/04/19 at 1803, flush, Flush pertains to all indwelling lines. Flush per protocol found in the job aid using the link provided on this medication record., Recovery (Recovery-Hospital Unit), Routine Given 07/30/2019 2:05 AM EDT 5 mLs sodium chloride 0.9% infusion 50 mL/hr, Intravenous, CONTINUOUS, Starting on Tue07/30/19 at 0108, Until Tue07/30/19 at 0647, Recovery (Recovery-Hospital Unit) New Bag 07/30/2019 1:51 AM EDT 50 mL/h r 50 mL/hr tamsulosin (Flomax) capsule 0.4 mg 0.4 mg, Oral, DAILY, First dose on Tue07/30/19 at 1345, Until Discontinued, DO NOT CRUSH OR OPEN, Routine Given 08/04/2019 8:16 AM EDT 0.4 mg Given 08/03/2019 8:53 AM EDT 0.4 mg Given 08/02/2019 1:56 PM EDT 0.4 mg documented in this encounter Active and Recently Administered Medications Times are shown in EDT. Scheduled Medication Order 08/02/2019 08/03/2019 08/04/2019 acetaminophen (Tylenol) tablet 1,000 mg 1,000 mg, Oral, EVERY 6 HOURS SCHEDULED, First dose on Tue07/30/19 at 0715, Until Discontinued, Maximum dose of acetaminophen is 4000 mg from all sources in 24 hours., Routine 0607 (Given - Provider: Kendra Beckett RN)1355 (Given - Provider: Giovana Ray RN)1904 (Given - Provider: Giovana Ray RN)2336 (Given - Provider: Kendra Beckett RN) 0515 (Given - Provider: Kendra Beckett RN)1156 (Given - Provider: Aicha Santa, PERNELL)1739 (Given - Provider: Aicha Santa, PERNELL)2340 (Given - Provider: Bibiana Venegas RN) 0600 (Not Given - Provider: Bibiana Venegas RN - Reason: Patient/family refused)1300 (Given - Provider: Aicha Santa RN) amLODIPine (Norvasc) tablet 5 mg 5 mg, Oral, DAILY, First dose on Tue07/31/19 at 0900, Until Discontinued, Routine 1357 (Given - Provider: Giovana Ray RN) 0852 (Given - Provider: Gabrielle Portillo RN) 0816 (Given - Provider: Aicha Santa RN) atorvastatin (Lipitor) tablet 10 mg 10 mg, Oral, EVERY EVENING, First dose on Tue07/30/19 at 1700, Until Discontinued, Routine 1614 (Given - Provider: Petros Vieyra) 1739 (Given - Provider: Aicha Santa RN) bumetanide (Bumex) tablet 2 mg 2 mg, Oral, 2 TIMES DAILY, First dose on Tue07/30/19 at 1600, Until Discontinued, Routine 0900 (Not Given - Provider: Giovana Ray RN - Reason: Transfer to a Procedural area)1614 (Given - Provider: Petros Vieyra) 0853 (Given - Provider: Gabrielle Portillo RN)1739 (Given - Provider: Aicha Santa RN) 0815 (Given - Provider: Aicha Santa RN) gabapentin (Neurontin) capsule 300 mg 300 mg, Oral, 3 TIMES DAILY, First dose on Tue07/30/19 at 1500, Until Discontinued, Routine 0900 (Not Given - Provider: Giovana Ray RN - Reason: Transfer to a Procedural area)1613 (Given - Provider: Petros Vieyra)2010 (Given - Provider: Kendra Beckett RN) 0853 (Given - Provider: Gabrielle Portillo RN)1500 (Given - Provider: Aicha Santa RN)2005 (Given - Provider: Bibiana Venegas RN) 0816 (Given - Provider: Aicha Santa RN)1500 (Due) heparin (Porcine) subcutaneous injection 5,000 Units 5,000 Units, Subcutaneous, EVERY 8 HOURS SCHEDULED, First dose on Tue07/31/19 at 1445, Until Discontinued, Routine 0607 (Given - Provider: Kendra Beckett RN)1355 (Given - Provider: Giovana Ray RN)2105 (Given - Provider: Kendra Beckett RN) 0515 (Given - Provider: Kendra Beckett RN)1500 (Given - Provider: Aicha Santa RN)2144 (Given - Provider: Bibiana Venegas, PERNELL) 0628 (Given - Provider: Bibiana Venegas RN)1300 (Given - Provider: Aicha Santa RN) insulin glargine VIAL injection 30 Units 30 Units, Subcutaneous, EVERY 24 HOURS, First dose on Tue07/30/19 at 1245, Until Discontinued, STAT 1358 (Given - Provider: Giovana Ray RN) 1155 (Given - Provider: Aicha Santa RN) 1307 (Given - Provider: Aicha Santa RN) insulin lispro (HumaLOG) VIAL injection 0-15 Units 0-15 Units, Subcutaneous, 3 TIMES DAILY WITH MEALS, First dose on Tue07/30/19 at 1700, Until Discontinued, [employer] Give 1 unit for every 8 grams carbohydrate. Hold if not eating or if BG less than 70, Routine 0800 (Not Given - Provider: Giovana Ray RN - Reason: See comment - Comment: pt had one bite of breakfast)1200 (Not Given - Provider: Giovana Ray RN - Reason: See comment - Comment: did not eat lunch)1700 (Not Given - Provider: Giovana Ray RN - Reason: See comment - Comment: Pt had 3 bites of dinner) 0800 (Hold - Provider: Aicha Santa RN - Reason: See comment - Comment: pt not eating breakfast)1200 (Hold - Provider: Aicha Santa RN - Reason: See comment - Comment: pt did not eat lunch)1700 (Hold - Provider: Aicha Santa RN - Reason: See comment - Comment: pt not eating) 0800 (Hold - Provider: Aicha Santa RN - Reason: See comment - Comment: pt had two bites of breakfast)1200 (Not Given - Provider: Aicha Santa RN - Reason: See comment - Comment: low bg) insulin lispro (HumaLOG) VIAL injection 1-6 Units(Linked Group 1) 1-6 Units, Subcutaneous, EVERY 4 HOURS SCHEDULED, First dose on Tue07/30/19 at 0129, Until Discontinued, CORRECTION BOLUS [1-6 Units] Moderate Sliding Scale: Correction factor 20 (1 unit of insulin is expected to drop the glucose 20 mg/dL) BG 140 - 160 Give 1 unit BG 161 - 180 Give 2 units BG 181 - 200 Give 3 units BG 201 - 220 Give 4 units BG 221 - 240 Give 5 units BG greater than 240, give 6 units and recheck BG in 2 hours. - If recheck BG is LESS than 240, give no insulin and resume schedule. - If recheck BG is GREATER than 240, give 6 units and repeat BG in 2 hours (no more than 3 times) & call for new insulin orders. DO NOT hold if NPO, unless specifically told to do so. Per Blood Glucose Monitoring Policy, re-check a BG of > 240 in 2 hours., Routine 0000 (Given - Provider: Kendra Beckett RN)0400 (Not Given - Provider: Kendra Beckett RN - Reason: Order parameters not met)0733 (Given - Provider: Giovana Ray RN)1357 (Given - Provider: Giovana Ray RN)1615 (Given - Provider: Petros Vieyra)2010 (Given - Provider: Kendra Beckett RN) 0000 (Not Given - Provider: Kendra Beckett RN - Reason: Order parameters not met)0515 (Given - Provider: Kendra Beckett RN)0857 (Given - Provider: Gabrielle Portillo RN)1155 (Given - Provider: Aicha Santa, PERNELL)1553 (Given - Provider: Aicha Santa, PERNELL)2005 (Given - Provider: Bibiana Venegas RN - Comment: blood sugar 184) 0000 (Not Given - Provider: Bibiana Venegas RN - Reason: Order parameters not met - Comment: blood sugar 135)0400 (Not Given - Provider: Bibiana E Bellavance, RN - Reason: Order parameters not met - Comment: blood sugar 125)0815 (Given - Provider: Aicha Santa RN - Comment: bg 140)1200 (Not Given - Provider: Aicha Santa RN - Reason: Order parameters not met) levETIRAcetam (Keppra) tablet 500 mg(Linked Group 2) 500 mg, Oral, EVERY 12 HOURS SCHEDULED (2 times per day), 14 doses, First dose on Tue07/31/19 at 0900, Last dose on Tue08/06/19 at 2100, Routine 1355 (Given - Provider: Giovana Ray RN)2010 (Given - Provider: Kendra Beckett RN) 0853 (Given - Provider: Gabrielle Portillo, PERNELL)2005 (Given - Provider: Bibiana Venegas RN) 0816 (Given - Provider: Aicha Santa RN) lidocaine (LIDODERM) 5 % patch 3 patch(Linked Group 3) 3 patch, Transdermal, EVERY 24 HOURS, First dose on Tue07/30/19 at 0715, Until Discontinued, Apply patch(es) for 12 hours, and then remove for 12 hours, Routine 0644 (Patch Applied - Provider: Kendra Beckett RN) 0854 (Patch Applied - Provider: Gabrielle Portillo, PERNELL) 0628 (Patch Applied - Provider: Bibiana Venegas RN) lidocaine (LIDODERM) patch REMOVAL(Linked Group 3) Transdermal, EVERY 24 HOURS, First dose on Tue07/30/19 at 1845, Until Discontinued, Remove lidocaine 5 %(700 mg/patch) patch 1845 (Patch Removed - Provider: Giovana Ray RN) 1845 (Patch Removed - Provider: Aicha Santa, PERNELL) losartan (Cozaar) tablet 50 mg 50 mg, Oral, DAILY, First dose on Tue07/30/19 at 1345, Until Discontinued, Hold SBP <100, Routine 1357 (Given - Provider: Giovana Ray RN) 0852 (Given - Provider: Gabrielle Portillo RN) 0816 (Given - Provider: Aicha Santa, PERNELL) melatonin tablet 3 mg (CANCELED) 3 mg, Oral, NIGHTLY, First dose on Tue07/30/19 at 2315, Until Discontinued, Routine 2010 (Given - Provider: Kendra Beckett RN) melatonin tablet 6 mg 6 mg, Oral, NIGHTLY, First dose (after last modification) on Tue08/03/19 at 2100, Until Discontinued, Routine 2100 (Not Given - Provider: Bibiana Venegas RN - Reason: Contraindicated)2340 (Given - Provider: Bibiana Venegas RN) pantoprazole EC (Protonix) tablet 40 mg 40 mg, Oral, EVERY 24 HOURS, First dose on Tue07/30/19 at 2200, Until Discontinued, DO NOT CRUSH OR OPEN 2010 (Given - Provider: Kendra Beckett RN) 2005 (Given - Provider: Bibiana Venegas RN) polyethylene glycol (Miralax) packet 17 g 17 g, Oral, DAILY, First dose on Tue07/30/19 at 0900, Until Discontinued, Routine 1409 (Given - Provider: Giovana Ray RN) 0853 (Given - Provider: Gabrielle Portillo RN) 0815 (Given - Provider: Aicha Santa RN) senna (Senokot) tablet 8.6 mg 8.6 mg, Oral, 2 TIMES DAILY, First dose on Tue07/30/19 at 0900, Until Discontinued, Routine 1357 (Given - Provider: Giovana Ray RN)2010 (Given - Provider: Kendra Beckett RN) 0853 (Given - Provider: Gabrielle Portillo RN)2005 (Given - Provider: Bibiana Venegas RN) 0816 (Given - Provider: Aicha Santa RN) sertraline (Zoloft) tablet 50 mg 50 mg, Oral, DAILY, First dose on Tue07/30/19 at 1345, Until Discontinued, Routine 1356 (Given - Provider: Giovana Ray RN) 0853 (Given - Provider: Gabrielle Portillo RN) 0816 (Given - Provider: Aicha Santa RN) sevelamer carbonate (Renvela) tablet 800 mg 800 mg, Oral, 3 TIMES DAILY WITH MEALS, First dose on Tue07/30/19 at 1700, Until Discontinued, DO NOT CRUSH OR OPEN, Routine 0801 (Given - Provider: Giovana Ray RN)1200 (Not Given - Provider: Giovana Ray RN - Reason: See comment - Comment: did not eat lunch)1614 (Given - Provider: Petros Vieyra) 0853 (Given - Provider: Gabrielle Portillo, PERNELL)1156 (Given - Provider: Aicha Santa RN)1739 (Given - Provider: Aicha Santa RN) 0816 (Given - Provider: Aicha Santa RN)1300 (Given - Provider: Aicha Santa RN) sodium chloride 0.9 % (flush) flush 5 mL 5 mL, Intravenous, 2 TIMES DAILY, First dose on Tue07/30/19 at 0108, Until Discontinued, Recovery (Recovery-Hospital Unit), Routine 0801 (Given - Provider: Giovana Ray RN)2016 (Given - Provider: Kendra Beckett RN) 1156 (Not Given - Provider: Aicha Santa RN - Reason: Loss of access)2005 (Not Given - Provider: Bibiana Venegas RN - Reason: See comment - Comment: no IV access) 0900 (Not Given - Provider: Aicha Santa RN - Reason: Loss of access) tamsulosin (Flomax) capsule 0.4 mg 0.4 mg, Oral, DAILY, First dose on Tue07/30/19 at 1345, Until Discontinued, DO NOT CRUSH OR OPEN, Routine 1356 (Given - Provider: Giovana Ray RN) 0853 (Given - Provider: Gabrielle Portillo, PERNELL) 0816 (Given - Provider: Aicha Santa RN) PRN Medication Order 08/02/2019 08/03/2019 08/04/2019 dextrose 10% infusion(Linked Group 4) 250 mL, at 1,000 mL/hr, Intravenous, EVERY 30 MIN PRN, Starting on 07/30/19 at 0126, Until 08/04/19 at 1803, For BG 50-70 mg/dL: Oral treatment preferred:?? If able to drink, give 120 mL Juice or Regular (not diet) soda OR If NPO, give 15 gram glucose 40% oral gel massaged into buccal mucosa OR if unconscious or uncooperative, give 25 gram (250 mL) Dextrose 10% IV over 15 minutes per protocol OR, if no IV access, 1 mg Glucagon IM. For BG less than 50 mg/dL: Oral treatment preferred:?? If able to drink, give 240 mL Juice or Regular (not diet) soda OR If NPO, give 30 gram glucose 40% oral gel massaged in buccal mucosa OR if unconscious or uncooperative, give 25 gram (250 mL) Dextrose 10% IV over 15 minutes per protocol OR, if no IV access, 1 mg Glucagon IM. Recheck BG in 30 minutes. May repeat juice/soda, gel, dextrose or glucagon once per episode. For persistent hypoglycemia, consider longer-acting treatment for the duration of the active insulin. epoetin babs-epbx (Retacrit) injection 10,000 Units (COMPLETED) 10,000 Units, Intravenous, ONCE IN DIALYSIS PRN, 1 dose, Starting on Barbara 08/02/19 at 0707, Until Barbara 08/02/19 at 1231, Other, Dialysis (Intra-Procedure), Routine, What is the indication of use? End Stage Renal Disease (ESRD) on dialysis 1231 (Given - Provider: Darian Singer RN) epoetin babs-epbx (Retacrit) injection 10,000 Units 10,000 Units, Intravenous, ONCE IN DIALYSIS PRN, 1 dose, Starting on Tue08/03/19 at 1628, Until 08/04/19 at 1203, Other, Dialysis (Intra-Procedure), Routine, What is the indication of use? End Stage Renal Disease (ESRD) on dialysis 1203 (Given - Provider: Petros Saldana RN) glucagon (human recombinant) injection SolR 1 mg(Linked Group 4) 1 mg, Intramuscular, EVERY 30 MIN PRN, Starting on 07/30/19 at 0126, Until 08/04/19 at 1803, Low blood sugar, For BG 50-70 mg/dL: Oral treatment preferred:?? If able to drink, give 120 mL Juice or Regular (not diet) soda OR If NPO, give 15 gram glucose 40% oral gel massaged into buccal mucosa OR if unconscious or uncooperative, give 25 gram (250 mL) Dextrose 10% IV over 15 minutes per protocol OR, if no IV access, 1 mg Glucagon IM. For BG less than 50 mg/dL: Oral treatment preferred:?? If able to drink, give 240 mL Juice or Regular (not diet) soda OR If NPO, give 30 gram glucose 40% oral gel massaged in buccal mucosa OR if unconscious or uncooperative, give 25 gram (250 mL) Dextrose 10% IV over 15 minutes per protocol OR, if no IV access, 1 mg Glucagon IM. Recheck BG in 30 minutes. May repeat juice/soda, gel, dextrose or glucagon once per episode. For persistent hypoglycemia, consider longer-acting treatment for the duration of the active insulin., Routine glucose (GLUTOSE) 40% oral gel(Linked Group 4) 15-30 g, Buccal, EVERY 30 MIN PRN, Starting on 07/30/19 at 0126, Until 08/04/19 at 1803, Low blood sugar, For BG 50-70 mg/dL: Oral treatment preferred:?? If able to drink, give 120 mL Juice or Regular (not diet) soda OR If NPO, give 15 gram glucose 40% oral gel massaged into buccal mucosa OR if unconscious or uncooperative, give 25 gram (250 mL) Dextrose 10% IV over 15 minutes per protocol OR, if no IV access, 1 mg Glucagon IM. For BG less than 50 mg/dL: Oral treatment preferred:?? If able to drink, give 240 mL Juice or Regular (not diet) soda OR If NPO, give 30 gram glucose 40% oral gel massaged in buccal mucosa OR if unconscious or uncooperative, give 25 gram (250 mL) Dextrose 10% IV over 15 minutes per protocol OR, if no IV access, 1 mg Glucagon IM. Recheck BG in 30 minutes. May repeat juice/soda, gel, dextrose or glucagon once per episode. For persistent hypoglycemia, consider longer-acting treatment for the duration of the active insulin. 1 tube contains 15 grams of glucose (net weight of tube = 37.5 grams., Routine heparin (porcine) 1,000 unit/mL injection 1,000-10,000 Units 1,000-10,000 Units, Intercatheter, ONCE IN DIALYSIS PRN, 1 dose, Starting on Tue07/31/19 at 0702, Until 08/04/19 at 1803, Line Care, Per Protocol, Catheter lock use catheter specified fill volume per dialysis protocol. For use in Dialysis only. Procedure ID: 660 (Hemodialysis CVAD Procedure - Care and Maintenance) in Clinical Policies., Dialysis (Intra-Procedure), Routine HYDROmorphone (Dilaudid) tablet 2 mg (CANCELED)(Linked Group 5) 2 mg, Oral, EVERY 4 HOURS PRN, Starting on Tue07/31/19 at 2153, Until Tue08/03/19 at 1544, Pain, for moderate pain (4-5), May give an additional 2 mg once if pain not relieved in 30-60 minutes., Routine 23 (See Alternative - Provider: Kendra Beckett RN)655 (See Alternative - Provider: Kendra Beckett RN)1355 (See Alternative - Provider: Giovana Ray RN)2010 (See Alternative - Provider: Kendra Beckett RN) 0945 (Given - Provider: Aicha Santa RN) HYDROmorphone (Dilaudid) tablet 4-6 mg (CANCELED)(Linked Group 5) 4-6 mg, Oral, EVERY 4 HOURS PRN, Starting on Tue07/31/19 at 2153, Until Tue08/03/19 at 0642, Pain, for severe pain (6-10), For Pain 6-7 give 4mg, pain 8-10 6mg, Routine 23 (Given - Provider: Kendra Beckett RN)655 (Given - Provider: Kendra Beckett RN)1355 (Given - Provider: Giovana Ray RN)2010 (Given - Provider: Kendra Beckett RN) 0945 (See Alternative - Provider: Aicha Santa RN) lidocaine (XYLOCAINE) 10 mg/mL (1 %) injection 3 mg 3 mg (0.3 mL), Subcutaneous, ONCE PRN, 1 dose, Starting on Tue07/30/19 at 0106, Until 08/04/19 at 1803, for discomfort with PIV insertion, Recovery (Recovery-Hospital Unit), Routine naloxone (NARCAN) injection 0.2 mg 0.2 mg, Intravenous, EVERY 1 MIN PRN, Starting on Tue07/30/19 at 0106, Until 08/04/19 at 1803, Opioid Reversal, If respiratory rate less than 6 OR the patient is unable to arouse OR SpO2 is declining, Give for respiratory rate of less than or equal to 6 and patient is heavily sedated or unarousable. May repeat every 60 seconds to increase respiratory rate. DO NOT exceed 2 mg total dose., Recovery (Recovery-Hospital Unit), Routine sodium chloride 0.9 % (flush) flush 5-20 mL 5-20 mL, Intravenous, EVERY 1 MIN PRN, Starting on Tue07/30/19 at 0106, Until 08/04/19 at 1803, flush, Flush pertains to all indwelling lines. Flush per protocol found in the job aid using the link provided on this medication record., Recovery (Recovery-Hospital Unit), Routine Linked Groups Order Group 1: POCT Fingerstick Glucose (CANCELED) Routine, EVERY 4 HOURS, First occurrence on Tue07/30/19 at 0130, Until Specified, Consider choosing EVERY 4 HOURS as frequency for: - Type 1 Diabetes - At least 24 hours after coming off an insulin drip - At least 24 hours after admission for DKA - Hypoglycemia unawareness - Patients who are otherwise unstable Select the same frequency for the correction bolus insulin order And insulin lispro (HumaLOG) VIAL injection 1-6 UnitsJump to med 1-6 Units, Subcutaneous, EVERY 4 HOURS SCHEDULED, First dose on Tue07/30/19 at 0129, Until Discontinued, CORRECTION BOLUS [1-6 Units] Moderate Sliding Scale: Correction factor 20 (1 unit of insulin is expected to drop the glucose 20 mg/dL) BG 140 - 160 Give 1 unit BG 161 - 180 Give 2 units BG 181 - 200 Give 3 units BG 201 - 220 Give 4 units BG 221 - 240 Give 5 units BG greater than 240, give 6 units and recheck BG in 2 hours. - If recheck BG is LESS than 240, give no insulin and resume schedule. - If recheck BG is GREATER than 240, give 6 units and repeat BG in 2 hours (no more than 3 times) & call for new insulin orders. DO NOT hold if NPO, unless specifically told to do so. Per Blood Glucose Monitoring Policy, re-check a BG of > 240 in 2 hours., Routine Group 2: levETIRAcetam (Keppra) tablet 500 mgJump to med 500 mg, Oral, EVERY 12 HOURS SCHEDULED (2 times per day), 14 doses, First dose on Tue07/31/19 at 0900, Last dose on Tue08/06/19 at 2100, Routine Or levETIRAcetam (KEPPRA) 500 mg in sodium chloride 0.82% 100 mL (CANCELED) 500 mg, Intravenous, at 400 mL/hr, EVERY 12 HOURS SCHEDULED (2 times per day), 14 doses, First dose on Tue07/31/19 at 0900, Last dose on Tue08/06/19 at 2100, Routine Group 3: lidocaine (LIDODERM) 5 % patch 3 patchJump to med 3 patch, Transdermal, EVERY 24 HOURS, First dose on Tue07/30/19 at 0715, Until Discontinued, Apply patch(es) for 12 hours, and then remove for 12 hours, Routine And lidocaine (LIDODERM) patch REMOVALJump to med Transdermal, EVERY 24 HOURS, First dose on Tue07/30/19 at 1845, Until Discontinued, Remove lidocaine 5 %(700 mg/patch) patch Group 4: glucose (GLUTOSE) 40% oral gelJump to med 15-30 g, Buccal, EVERY 30 MIN PRN, Starting on Tue07/30/19 at 0126, Until 08/04/19 at 1803, Low blood sugar, For BG 50-70 mg/dL: Oral treatment preferred:?? If able to drink, give 120 mL Juice or Regular (not diet) soda OR If NPO, give 15 gram glucose 40% oral gel massaged into buccal mucosa OR if unconscious or uncooperative, give 25 gram (250 mL) Dextrose 10% IV over 15 minutes per protocol OR, if no IV access, 1 mg Glucagon IM. For BG less than 50 mg/dL: Oral treatment preferred:?? If able to drink, give 240 mL Juice or Regular (not diet) soda OR If NPO, give 30 gram glucose 40% oral gel massaged in buccal mucosa OR if unconscious or uncooperative, give 25 gram (250 mL) Dextrose 10% IV over 15 minutes per protocol OR, if no IV access, 1 mg Glucagon IM. Recheck BG in 30 minutes. May repeat juice/soda, gel, dextrose or glucagon once per episode. For persistent hypoglycemia, consider longer-acting treatment for the duration of the active insulin. 1 tube contains 15 grams of glucose (net weight of tube = 37.5 grams., Routine Or dextrose 10% infusionJump to med 250 mL, at 1,000 mL/hr, Intravenous, EVERY 30 MIN PRN, Starting on Tue07/30/19 at 0126, Until 08/04/19 at 1803, For BG 50-70 mg/dL: Oral treatment preferred:?? If able to drink, give 120 mL Juice or Regular (not diet) soda OR If NPO, give 15 gram glucose 40% oral gel massaged into buccal mucosa OR if unconscious or uncooperative, give 25 gram (250 mL) Dextrose 10% IV over 15 minutes per protocol OR, if no IV access, 1 mg Glucagon IM. For BG less than 50 mg/dL: Oral treatment preferred:?? If able to drink, give 240 mL Juice or Regular (not diet) soda OR If NPO, give 30 gram glucose 40% oral gel massaged in buccal mucosa OR if unconscious or uncooperative, give 25 gram (250 mL) Dextrose 10% IV over 15 minutes per protocol OR, if no IV access, 1 mg Glucagon IM. Recheck BG in 30 minutes. May repeat juice/soda, gel, dextrose or glucagon once per episode. For persistent hypoglycemia, consider longer-acting treatment for the duration of the active insulin. Or glucagon (human recombinant) injection SolR 1 mgJump to med 1 mg, Intramuscular, EVERY 30 MIN PRN, Starting on Tue07/30/19 at 0126, Until 08/04/19 at 1803, Low blood sugar, For BG 50-70 mg/dL: Oral treatment preferred:?? If able to drink, give 120 mL Juice or Regular (not diet) soda OR If NPO, give 15 gram glucose 40% oral gel massaged into buccal mucosa OR if unconscious or uncooperative, give 25 gram (250 mL) Dextrose 10% IV over 15 minutes per protocol OR, if no IV access, 1 mg Glucagon IM. For BG less than 50 mg/dL: Oral treatment preferred:?? If able to drink, give 240 mL Juice or Regular (not diet) soda OR If NPO, give 30 gram glucose 40% oral gel massaged in buccal mucosa OR if unconscious or uncooperative, give 25 gram (250 mL) Dextrose 10% IV over 15 minutes per protocol OR, if no IV access, 1 mg Glucagon IM. Recheck BG in 30 minutes. May repeat juice/soda, gel, dextrose or glucagon once per episode. For persistent hypoglycemia, consider longer-acting treatment for the duration of the active insulin., Routine Group 5: HYDROmorphone (Dilaudid) tablet 2 mg (CANCELED)Jump to med 2 mg, Oral, EVERY 4 HOURS PRN, Starting on Tue07/31/19 at 2153, Until Tue08/03/19 at 1544, Pain, for moderate pain (4-5), May give an additional 2 mg once if pain not relieved in 30-60 minutes., Routine Or HYDROmorphone (Dilaudid) tablet 4-6 mg (CANCELED)Jump to med 4-6 mg, Oral, EVERY 4 HOURS PRN, Starting on Tue07/31/19 at 2153, Until Tue08/03/19 at 0642, Pain, for severe pain (6-10), For Pain 6-7 give 4mg, pain 8-10 6mg, Routine documented in this encounter Care Teams Assistant Principal Relationship Specialty Start Date End Date Jarad Keller DNP PCP - General Family Medicine 06/05/18 02/09/21 documented as of this encounter
--- OUTSIDE RECORDS SUMMARY | 2023-12-28 16:39 | XMS_ITS | Encounter Summary ---
[place] [address] Care Team Providers Care Lime Spreader Name Role Phone Jarad Keller DNP Primary Care Provider [phone] Encounter Details Date Type Department Care Team (Late st Contact Info) Description 06/08/2018 2:30 PM EST Office Visit [place] [address] Tamar Smith RN Pre-transplant evaluation for kidney transplant Social History [...] as of this encounter Progress Notes * Marissa Hull RN - 06/08/2018 2:30 PM EST I met with Maurice Rudolph to discuss the evaluation for kidney transplant process. We discussed: Required Testing: Up to date Immunizations: Tetanus, [id number], [id number], shingles, Hep B series, and yearly flu ([facility] in [place]) Healthcare Maintenance: Yearly physical, colonoscopy ([facility] in [place]) and [facility]UL[facility] Cardiac: EKG and Cardiac stress test every other year while on the wait list ([facility] in [place]) Labs: Serologies, ABO, and tissue typing Vascular: [facility] (maybe in [place]) Radiology: Chest X-ray ([facility]) Other testing may be needed based on the evaluations of the rest of the team. After all required testing has been completed Maurice Rudolph will return to clinic (in about 3 months) for a final evaluation and education prior to being added to the kidney transplant wait list. I also discussed with Maurice Rudolph the importance of contacting us if there are any changes in her health that could delay her evaluation or effect her candidacy for kidney transplant. All questions were answered regarding the kidney transplant evaluation process. documented in this encounter Plan of Treatment Not on file documented as of this encounter Visit Diagnoses Diagnosis Pre-transplant evaluation for kidney transplant Other specified pre-operative examination documented in this encounter Care Teams Lime Spreader Relationship Specialty Start Date End Date Jarad Keller DNP PCP - General Family Medicine 06/05/18 02/09/21 documented as of this encounter
--- OUTSIDE RECORDS SUMMARY | 2023-12-28 16:39 | XMS_ITS | Encounter Summary ---
[place] [address] Care Team Providers Care Director Of Cardiac Rehabilitation Name Role Phone Jarad Keller DNP Primary Care Provider [phone] Encounter Details Date Type Department Care Team (Late Contact Info) Description 07/21/2018 Telephone [place] [id number] Tamar Smith RN Social History Tobacco Use [...] Telephone Encounter - Tamar Bailey RN - 07/21/2018 10:16 AM EDT Call to Maurice as we have not been able to contact him since he came for his initial evaluation on June 08, 2018. Home phone is no longer in service. VM left on cell phone. Call to [facility]. Spoke with Julienne GIMENEZ who reports she believes Maurice would be interested in proceeding. She confirmed his cell number. She will ask him to call me. Will leave evaluation open in awaiting him to call me. documented in this encounter Plan of Treatment Not on file documented as of this encounter Visit Diagnoses Not on filedocumented in this encounter Care Teams Director Of Cardiac Rehabilitation Relationship Specialty Start Date End Date Jarad Keller DNP PCP - General Family Medicine 06/05/18 02/09/21 documented as of this encounter
--- OUTSIDE RECORDS SUMMARY | 2023-12-28 16:39 | XMS_ITS | Encounter Summary ---
[place] [address] Care Team Providers Care Paving Stone Installer Name Role Phone Jarad Keller DNP Primary Care Provider [phone] Encounter Details Date Type Department Care Team (Late st Contact Info) Description 06/27/2018 Telephone [place] [phone] Tamar Smith RN Social History Tobacco Use [...] Telephone Encounter - Tamar Bailey RN - 06/27/2018 2:03 PM EST 2nd VM left for Maurice. Need to discuss what was done/ not done at [facility]. Requested some records from them as not [...] on filedocumented in this encounter Care Teams Paving Stone Installer Relationship Specialty Start Date End Date Jarad Keller DNP PCP - General Family Medicine 06/05/18 02/09/21 documented as of this encounter
--- OUTSIDE RECORDS SUMMARY | 2023-12-28 16:39 | XMS_ITS | Encounter Summary ---
Author Organization [facility] [place] [place] [place] [address] Care Team Providers Care Painting And Coating Worker Name Role Phone Jarad Keller DNP Primary Care Provider [phone] Reason for Visit * Reason Onset Date Comments Medication Refill 06/25/2019 Encounter Details Date Type Department Care Team (Late st Contact Info) Description 06/25/2019 Refill [place] [address] Ceasar Roy MD [facility] [place] [address] Social History Tobacco Use Types Packs/Day Years [...] on filedocumented in this encounter Care Teams Painting And Coating Worker Relationship Specialty Start Date End Date Jarad Keller DNP PCP - General Family Medicine 06/05/18 02/09/21 documented as of this encounter
--- OUTSIDE RECORDS SUMMARY | 2023-12-28 16:39 | XMS_ITS | Encounter Summary ---
[place] [address] Care Team Providers Care Credit Office Manager Name Role Phone Jarad Keller DNP Primary Care Provider [phone] Encounter Details Date Type Department Care Team (Late st Contact Info) Description 06/21/2018 Orders Only [place] [address] Tamar Smith RN Pre-transplant evaluation for kidney transplant; ESRD (end stage renal disease); ESRD on hemodialysis; Coronary artery disease, angina presence unspecified, unspecified vessel or lesion type, unspecified whether [place] or transplanted heart Social History Tobacco Use Types Packs/Day Years [...] disease) End stage renal disease ESRD on hemodialysis End stage renal disease Coronary artery disease, angina presence unspecified, unspecified vessel or lesion type, unspecified whether [place] or transplanted heart documented in this encounter Care Teams Credit Office Manager Relationship Specialty Start Date End Date Jarad Keller DNP PCP - General Family Medicine 06/05/18 02/09/21 documented as of this encounter
--- OUTSIDE RECORDS SUMMARY | 2023-12-28 16:39 | XMS_ITS | Encounter Summary ---
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) Social History Tobacco Use Types Packs/Day Years [...] as of this encounter Results * (ABNORMAL) Hemoglobin and Hematocrit, blood (06/08/2018 3:29 PM EST) Hemoglobin 12.5(L) 13.7 - 16.5 gm/dL [facility] Hematocrit 35.4(L) 40.5 - 48.5 % [facility] Blood specimen (specimen) 06/08/2018 3:29 PM EST 06/08/2018 3:34 PM EST Narrative Resulting Agency Comment Spec In Lab Young Watts MD HEMATOLOGY ORDERA BLES Performing Organization Address City/[facility]/ZIP Co de Phone Number [facility] [place] [address] * (ABNORMAL) Fructosamine (06/08/2018 3:29 PM EST) Fructosamine (AUGUST) 538(H) 200 - 285 mcmol/L [facility] Comment: Test Performed by: [address] [id number] Blood specimen (specimen) 06/08/2018 3:29 PM EST 06/09/2018 8:46 AM EST Narrative Resulting Agency Comment Spec In Lab Young Watts MD LAB SEND OUT JAY BEVERLY Performing Organization Address City/[facility] Co de Phone Number [facility] [place] [address] documented in this encounter Visit Diagnoses Diagnosis Pre-transplant evaluation for kidney transplant Other specified pre-operative examination 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
--- OUTSIDE RECORDS SUMMARY | 2023-12-28 16:39 | XMS_ITS | Encounter Summary ---
[place] [address] Care Team Providers Care Processing Technologist Name Role Phone Jarad Keller DANIKA Primary Care Provider [phone] Reason for Visit * Auth/Cert Specialty Diagnoses / Procedures Referred By Puneet hallman Referred To Contact Diagnoses Fall Fall, initial encounter Referral ID Status Reason Start Date Expiration Date Visits Re quested Visits Authorized [id number] 1 1 Encounter Details Date Type Department Care Team (Latest Contact Info) Description 07/31/2019 5:15 AM EDT - 07/31/2019 11:59 PM EDT Hospital Encounter [place] [address] Discharge Disposition: Home Social History Tobacco Use [...] times daily (with meals). 12 08/04/2019 09/14/2019 insulin aspart U-100 (NovoLOG) Solution Inject 76 Units subcutaneously continuous. daily via Vgo insulin pump. ICD 10 Code: E11.319 30 mL 11 06/25/2019 08/04/2019 V-GO 40 Device Inject 76 Units subcutaneously daily. ICD 10 Code: E11.319 30 Device 5 06/25/2019 08/04/2019 camphor-menthol (SARNA) Lotion Apply 1 each topically [...] daily. 01/15/2022 documented as of this encounter Plan of Treatment Not on file documented as of this encounter Procedures Procedure Name Priority Date/Time Associated Diagnosis Comments ECHO COMPLETE W CONTRAST Routine 07/31/2019 2:25 PM EDT Fall, initial encounter documented in this encounter Visit Diagnoses Not on filedocumented in this encounter Administered Medications Inactive Administered Medications - up to 3 most recent administrations Medication Order MAR Action Action Date Dose Rate Site perflutren protein-A microspheres (OPTISON) 0.22 mg/mL injection 2.5 mL 2.5 mL, Intravenous, ONCE PRN, 1 dose, Starting on Tue07/31/19 at 1425, Until Tue07/31/19 at 1330, Per Protocol, Routine Given 07/31/2019 1:30 PM EDT 2.5 mLs documented in this encounter Care Teams Processing Technologist Relationship Specialty Start Date End Date Jarad Keller DNP PCP - General Family Medicine 06/05/18 02/09/21 documented as of this encounter
--- OUTSIDE RECORDS SUMMARY | 2023-12-28 16:39 | XMS_ITS | Encounter Summary ---
Author Organization [facility] [place] [address] Care Team Providers Care Manual Arts Therapist Name Role Phone Jarad Keller DNP Primary Care Provider [phone] Reason for Visit * Reason Comments Cellulitis * Auth/Cert Specialty Diagnoses / Procedures Referred By Puneet t Referred To Contact Diagnoses Cellulitis Cellulitis of leg, left Referral ID Status Reason Start Date Expiration Date Visits Re quested Visits Authorized [id number] 1 1 Encounter Details Date Type Department Care Team (Latest Contact Info) Description 10/19/2018 2:44 PM EDT - 10/22/2018 2:26 PM EDT Hospital Encounter [address] [place] [address] [place] [address] [place] [address] [place] [address] Cellulitis of leg, left Discharge Disposition: Home Social History Tobacco Use [...] Sign Reading Time Taken Comments Blood Pressure 147/72 10/22/2018 8:12 AM EDT Pulse 90 10/22/2018 3:45 AM EDT Temperature 36.4 ??C (97.6 ??F) 10/22/2018 8:12 AM ED T Respiratory Rate 18 10/22/2018 8:12 AM EDT Oxygen Saturation 94% 10/22/2018 8:12 AM EDT Inhaled Oxygen Concentration - - Weight 107.5 kg (236 lb 15.9 oz) 2018 10:55 AM EDT Height 162.6 cm (5' 4) 10/19/2018 1:53 PM EDT Body Mass Index 40.68 10/19/2018 1:53 PM EDT documented in this encounter Discharge Summaries * Rylan Stout MD - 10/21/2018 12:31 AM EDT Discharge Summary Patient Name: Sindi Rudolph Patient Age: 58 y.o. Language: Omani Race: White Ethnicity: Not nor Admit date: 10/19/2018 Discharge date and time: 10/22/18 Attending Physician: Rylan Stout MD Discharge Physician: Rylan Stout MD Follow-up Recommendations for Providers: - please follow-up for ongoing improvement of left foot/leg cellulitis Inpatient Provider Contact Information: For questions regarding this document or issues relating to this hospitalization on the Medical Service, please contact your inpatient physician through the [facility] Energy Systems Engineer . Issues afterhours and on weekends will be handled by the Hospitalist staff on-call. Discharge Diagnoses (Hospital Problems) and Secondary Diagnoses (Chronic Problems): Active Hospital Problems Diagnosis ??? Cellulitis Resolved Hospital Problems No resolved problems to display. Active Non-Hospital Problems Diagnosis ??? Pre-transplant evaluation for kidney transplant ??? [...] disease) ??? Proliferative diabetic retinopathy, both eyes Operations/Major Procedures: None History of Presentation: (taken from H&P written on 10/20/[address] Bessy Anaya) 58 y/o male with pmhx ESRD on HD TTS, CAD s/p CABG 2014, IDDM, HTN, HPL who presents with left leg swelling. ?? The patient reports being in his usual state of health until about 10 days ago when he began experiencing left lower extremity erythema, pain and fevers. He presented to [facility] where he was hospitalizedfor 3 days with fevers and lactic acidosis in the setting of LLE cellulitis. He was treated with 1 x dose of vancomycin followed by IV cefazolin with which he improved. He was discharged on 10/13 to complete cefazolin as an outpatient on HD days. ?? The patient reports that his erythema was persistent at discharge and has progressively worsened over the last several days. He notes subjective fevers at home, persistent pain and progressive erythema that now extends to the level of his left knee. He states that he has significant pain with weight bearing and has been struggling to ambulate. His appetite is diminished but he denies nausea, vomiting. His bowel movements are at baseline. He does produce some urine but states that it is darker than usual. He has no past history of cellulitis and cannot recall an inciting injury. His most recent dose of antibiotics was earlier today when he went for dialysis. ?? Hospital Course: # Left Leg Cellulitis The patient was recently discharged from another hospital on cefazolin. His worsening cellulitis ismost likely related to an uncovered infection. He did not have a leukocytosis or demonstrate SIRS physiology. He was started on Unasyn on 10/19 with improvement in his exam. Based on the robustness ofhis initial exam, a CT LLE was obtained which did not show any abscess or deep space infection. He r eceived Unasyn through 10/22 and will be discharged on renally dosed Augmentin for an additional five days. # Heat/Contact Rash on back and posterior neck Over 10/21 to 10/22 Sindi developed a pruritic, erythematous confluent rash on a large portion of his back and in the skin folds of his posterior neck. This was thought most likely related to heat rash/contact dermatitis as Sindi reported sweating that drenched through his sheets over the last 24 hours. This was not though related to untreated infection as he had no objective fever or other signs of worsening infection. ?? # ESRD on HD TTS Last HD was 10/19. Nephrology was consulted for HD needs. The patient was continued on bumex 2 mg POBID ?? # IDDM # Peripheral Neuropathy The patient uses V-GO SC insulin device which quickly stopped working on admission. He takes 40 units of long-acting insulin through this device. On 10/20, he was started on a reduced dose of lantus which was increased based on glucose values. We continued gabapentin 300 mg PO TID. He did not have the materials needed to restart his V-GO during hospitalization but this will be restarted at home. ?? Vital Signs at Discharge: BP: 147/72, Heart Rate: 90, Temp: 36.4 ??C (97.6 ??F), Resp: 18, BMI (Calculated): 39.73 Height: 162.6 cm (5' 4) (10/19/18 1353) Weight: 107.5 kg (236 lb 15.9 oz) (10/21/18 1055) Functional and Cognitive Status: Intact, independent Important Studies and Lab Data: Labs: Last 3 wbc, hgb, hct plt Recent Labs 10/21/18 0642 10/20/18191110/19/18 1520 WBC 7.2 6.5 6.6 HGB 9.8* 9.8* 11.1* HCT 29.9* 31.0* 34.3* PLATELET 253 259 277 Last 3 Lytes Recent Labs 10/21/18 0642 10/20/18191110/19/18 1520 NA 133* 132* 139 K 4.3 4.4 3.6 CL 91* 89* 91* CO2 31 32* 36* BUN 39* 35* 17 CREATININE 4.50* 3.81* 2.78* CT LLE W CONTRAST 10/20/18: FINDINGS: OSSEOUS STRUCTURES: No fracture, periostitis or bone destruction. JOINTS: Hip joint-normal. Knee joint-small effusion. Ankle joint-no effusion. ?? TENDONS: No displaced tendons ?? MUSCLES: Normal appearance ?? SOFT TISSUES: No soft tissue air. Nonspecific subcutaneous edema in the lateral soft tissues of the thigh, knee and foot. The calf, there is skin thickening and circumferential increased density of subcutaneous fat. No well-circumscribed fluid collection. ?? Lymph nodes-a few left inguinal lymph nodes. The largest is 16 mm in short axis. Most contain central fatty cleft. ?? IMPRESSION 1. No soft tissue air. No well-circumscribed fluid collection/abscess. 2. Nonspecific skin thickening and increased attenuation of subcutaneous fat in entire left lower extremity, most pronounced in the lateral soft tissues and in both medial and lateral soft tissues of the calf. Finding is nonspecific and may represent any combinations of bland edema or cellulitis. 3. Several mildly enlarged left inguinal lymph nodes. Pending Studies and Lab Data: - none Discharge Conditions/Prognosis: - cellulitis - improved Discharge to: Home Updated Allergies/ADRs: No Known Allergies Immunizations Given this Hospitalization: Immunization History Administered Date(s) Administered ??? Pneumococcal Polyvalent 05/23/2006 Discharge Medications: Your Medications New Medications Dose Details amoxicillin-clavulanate 500-125 mg Tab Commonly known as: AUGMENTIN Take 1 tablet by mouth daily for 5 days. Take after dialysis on dialysis days 1 tablet Quantity: 5 tablet Refills: 0 camphor-menthol Lotn Commonly known as: SARNA Apply 1 each topically 3 times daily as needed for Itching (left LE). 1 each Quantity: 222 mL Refills: 0 Continued medications, unchanged Dose Details aspirin 325 mg Tab Take 325 mg by mouth daily. 325 mg Refills: 0 B Complex-Vitamin C-Folic Acid 1 mg Cap Commonly known as: NEPHROCAP Take 1 capsule by mouth daily. 1 capsule Refills: 0 blood sugar diagnostic strips Strp Use to check blood sugar 3 times daily Quantity: 200 each Refills: 11 bumetanide 1 mg Tab Commonly known as: BUMEX Take 2 mg by mouth 2 times daily. 2 mg Refills: 0 gabapentin 300 mg Cap Commonly known as: NEURONTIN Take 300 mg by mouth 3 times daily. 300 mg Refills: 0 glucagon (Human Recombinant) 1 mg Solr Use in case of emergency for low blood sugar Quantity: 1 each Refills: 5 insulin aspart U-100 Soln Commonly known as: NovoLOG Use 76 units daily via Vgo pump Quantity: 30 mL Refills: 11 loratadine 10 mg Tab Commonly known as: CLARITIN Take 10 mg by mouth daily as needed for Allergies. 10 mg Refills: 0 losartan 50 mg Tab Commonly known as: COZAAR Take 50 mg by mouth daily. 50 mg Refills: 0 pravastatin 40 mg Tab Commonly known as: PRAVACHOL Take 40 mg by mouth daily. 40 mg Refills: 0 sertraline 25 mg Tab Commonly known as: ZOLOFT Take 25 mg by mouth daily. 25 mg Refills: 0 sub-q insulin device, 40 unit Supriya Commonly known as: V-GO 40 40 Units by Misc.(Non-Drug; Combo Route) route daily. 40 Units Quantity: 30 Device Refills: 11 tamsulosin 0.4 mg Cap Commonly known as: FLOMAX Take 0.4 mg by mouth daily. 0.4 mg Refills: 0 STOPPED Medications insulin glargine Soln Smoking Status at Discharge: Social History Tobacco Use Smoking Status Former Smoker Smokeless Tobacco Never Used Tobacco Comment quit in his 20's Instructions Given to Patient at Discharge: Patient Instructions Patient Instructions on Discharge to Home Why you were hospitalized - skin infection Call your doctor or seek medical attention if you develop the following - chest pain, shortness of breath, passing out, feeling dizzy upon standing, passing out, diarrhea, constipation lasting longerthan 2 days, fevers (temperature over 100.3), chills, abdominal pain, vomiting, difficulty or discomfort when urinating, bloody or black bowel movements, or any other acute or concerning symptom. Activity level - as tolerated Diet - renal diet Driving - do not drive (given vision issues) Shower/Bath - no restrictions Wound Care - n/a Home Oxygen Therapy - n/a Medication Changes - New Medications: - Augmentin one tablet daily (take after dialysis on Tuesday//Tuesday), take this medication for five additional days - Sarna lotion, apply to itchy areas on your back up to three times daily as needed for rash Stop these Medications: - n/a Medications with new dose: - n/a Other Important Instructions - if you have increasing redness, pain or swelling in your left foot and leg please let your primary care provider know as this could be a sign your infection has re-occurred Follow-up Appointments Future Appointments Date Time Provider Department Center 10/23/2018 2:30 PM Ceasar Roy MD [facility] Your Inpatient Medical Team at [facility] Name(s) of your inpatient provider(s): Rylan Stout MD For questions regarding issues relating to your hospitalization on the Hospital Medicine Service, please contact your inpatient physician through the [facility] Energy Systems Engineer [phone]. Issues after hours and on weekends will be handled by the Hospitalist staff on-call. Your Primary Care Provider Jarad Sanjay Arianna, MANAGER FINANCIAL SYSTEMS [phone] General Instructions None Future Appointments and Orders Future Appointments and Orders Future Appointments Provider Department Dept Phone 10/23/2018 2:30 PM Ceasar Roy MD Endocrinology at [place] Arrive at: [employer] Area [phone] Discharge References/Attachments None documented in this encounter Discharge Instructions * Patient Instructions* Rylan Stout MD - 10/22/2018 10:36 AM EDT Patient Instructions on Discharge to Home Why you were hospitalized - skin infection Call your doctor or seek medical attention if you develop the following - chest pain, shortness of breath, passing out, feeling dizzy upon standing, passing out, diarrhea, constipation lasting longerthan 2 days, fevers (temperature over 100.3), chills, abdominal pain, vomiting, difficulty or discomfort when urinating, bloody or black bowel movements, or any other acute or concerning symptom. Activity level - as tolerated Diet - renal diet Driving - do not drive (given vision issues) Shower/Bath - no restrictions Wound Care - n/a Home Oxygen Therapy - n/a Medication Changes - New Medications: - Augmentin one tablet daily (take after dialysis on Tuesday//Tuesday), take this medication for five additional days - Sarna lotion, apply to itchy areas on your back up to three times daily as needed for rash Stop these Medications: - n/a Medications with new dose: - n/a Other Important Instructions - if you have increasing redness, pain or swelling in your left foot and leg please let your primary care provider know as this could be a sign your infection has re-occurred Follow-up Appointments Future Appointments Date Time Provider Department Center 10/23/2018 2:30 PM Ceasar Roy MD [facility] Your Inpatient Medical Team at [facility] Name(s) of your inpatient provider(s): Rylan Stout MD For questions regarding issues relating to your hospitalization on the Hospital Medicine Service, please contact your inpatient physician through the [facility] Energy Systems Engineer [phone]. Issues after hours and on weekends will be handled by the Hospitalist staff on-call. Your Primary Care Provider Jarad Grace Arianna, MANAGER [employer]CIAL SYSTEMS [phone] documented in this encounter Medications at Time of Discharge Medication Sig Dispensed Refills Start Date End Date blood sugar diagnostic strips Strip Use to [...] tablet Take 50 mg by mouth daily. mv,iron/folic/D3/om-3/d vargas/epa (PRORENAL QD ORAL) ProRenal QD oral capsule 07/07/2017 02/07/2020 amoxicillin-clavulanate (AUGMENTIN) 500-125 mg Tablet Take 1 tablet by mouth daily for 5 days. Take after dialysis on dialysis days 5 tablet 10/22/2018 10/27/2018 camphor-menthol (SARNA) Lotion Apply 1 each topically 3 times daily as needed for Itching (left LE). 222 mL 10/22/2018 02/07/2020 glucagon, Human Recombinant, 1 mg Recon SolnIndications:Type 2 diabetes mellitus with retinopathy, with long-term current use of insulin, macular edema presence unspecified, unspecified laterality, unspecified retinopathy severity Use in case of emergency for low blood sugar 1 each 5 08/18/2018 02/07/2020 sub-q insulin device, 40 unit (V-GO 40) Device 40 Units by Misc.(Non-Drug; Combo Route) route daily. 30 Device 11 08/18/2018 06/15/2019 insulin aspart U-100 (NOVOLOG) Solution Use 76 units daily via Vgo pump 30 mL 11 08/18/2018 06/25/2019 aspirin 325 mg Tablet Take 325 mg by mouth daily. 07/31/2019 loratadine (CLARITIN) 10 mg Tablet Take 10 mg by mouth daily as needed for Allergies. 01/22/2022 tamsulosin (FLOMAX) 0.4 mg Capsule Take 0.4 mg by mouth daily. 01/15/2022 pravastatin (PRAVACHOL) 40 mg Tablet Take 40 mg by mouth daily. 01/15/2022 documented as of this encounter Progress Notes * Chantale Cazares RN - 10/22/2018 2:23 PM EDT Pt discharged to home w/personal belongings in taxi. AVS reviewed prior to discharge. IVs removed prior to discharge. Chantale Cazares RN * Jackie Sanchez MSW - 10/22/2018 10:57 AM EDT Per 1E request FILM MAKER supported pt w/ ride home at d/c due to financial need/friends not being able topick him up over weekend. Charge slip routed to [facility] Admin. [employer] Transportation will flower picker pt at [facility] at 2PM 10/22 Office Of Care Management Float/Weekend Plastics Engineer GAURI Nice Pager [phone] * Rylan Stout MD - 10/22/2018 10:31 AM EDT Hospital Medicine - Attending Day of Discharge Documentation Discharge diagnosis Active Hospital Problems Diagnosis ??? Cellulitis Resolved Hospital Problems No resolved problems to display. Secondary Issues Active Non-Hospital Problems Diagnosis ??? Pre-transplant evaluation for kidney transplant ??? [...] disease) ??? Proliferative diabetic retinopathy, both eyes I have personally seen and examined the patient and they are ready for discharge. I spent >30 minutes (Day of Discharge Code 81049) involved in the final examination of the patient, discussion of the hospital stay, instructions for continuing care to all relevant caregivers, and preparation of discharge records, prescriptions and referral forms. Plans ? Discharge to home ? Follow-up scheduled with HD ? Please see the Discharge Summary for complete details of any medication changes and additional plans. * Rylan Stout MD - 10/21/2018 3:47 PM EDT [facility] Medicine Inpatient Progress Note Interval History: - no issues, feels leg pain and swelling is improved - Denies CP, SOB, n/v/d Physical Exam: Last value Range last 24 hrs Temperature Temp: 36.5 ??C (97.7 ??F) Temp: [36.3 ??C (97.4 ??F)-37.1 ??C (98.8 ??F)] Heart Rate Heart Rate: 83 Heart Rate: [83-95] Blood Pressure BP: 160/85 BP: (130-160)/(61-97) Respiratory Rate Resp: 18 Resp: [17-18] SpO2 SpO2: 94 % SpO2: [91 %-99 %] - nursing notes and vitals reviewed Constitutional: NAD Eyes: PERRL, EOMI HEENT: sclera anicteric, no conjunctival pallor Neck: no cervical LAD, JVP <8 cm H2O Respiratory: Normal respiratory effort, Lungs CTAB CV: RRR, s1 s2 normal, no m/r/g GI: soft, NT, ND, BS+ Ext: radial and TP pulses 1+ bilaterally Lymph: 1-2+ peripheral pitting peripheral edema Neuro: A+O x3, no facial asymmetry Skin/Lines: left leg erythema now regressed to within previously marked borders Labs: Recent Labs 10/21/1864110/20/18191110/19/18 1520 WBC 7.2 6.5 6.6 HGB 9.8* 9.8* 11.1* HCT 29.9* 31.0* 34.3* PLATELET 253 259 277 Recent Labs 10/21/1864110/20/18191110/19/18 1520 NA 133* 132* 139 K 4.3 4.4 3.6 CL 91* 89* 91* CO2 31 32* 36* BUN 39* 35* 17 CREATININE 4.50* 3.81* 2.78* GLUCOSE 122 196 216* Recent Labs 10/21/1842 10/20/18191110/19/18 1520 CALCIUM 8.5 8.6 9.4 PHOS 5.8* -- -- Recent Labs 10/19/18 1520 AST 69* ALT 33 ALKPHOS 164* BILITOT Not Perf BILIDIR Not Perf Imaging: CT Lower Extremity w Contrast Left Final Result 1. No soft tissue air. No well-circumscribed fluid collection/abscess. 2. Nonspecific skin thickening and increased attenuation of subcutaneous fat in entire left lower extremity, most pronounced in the lateral soft tissues and in both medial and lateral soft tissues of the calf. Finding is nonspecific and may represent any combinations of bland edema or cellulitis. 3. Several mildly enlarged left inguinal lymph nodes. Thank you for letting us participate in the care of this patient. For questions regarding this report, please contact the number below. Microbiology: Microbiology Results (Last 30 days) No results found for the last 720 hours. Assessment and Plan: Sindi Rudolph is a 58 y.o. year old male admitted on 10/19/2018 ( Hospital Day 2 days ) for LLE cellulitis. Ongoing slow improvement with Unasyn, no evidence of deep space infection on CT scan. Continue IV antibiotics for now. # Left Lower Extremity Cellulitis - Continue Unasyn 3gm Q12H - CT left leg as above ?? # ESRD on HD TTS - Nephrology consult for hemodialysis - Continue bumex 2 mg PO BID ?? # IDDM # Peripheral Neuropathy - Patient uses V-GO subcu insulin device, no longer working - insulin glargine 20 units daily - lispro 0-10 units with meals - moderate sliding scale - Continue gabapentin 300 mg PO TID ?? # CAD # HTN - ASA 325 mg PO daily - Continue formulary statin, atorvastatin 10 mg PO daily - Continue losartan 50 mg PO daily ?? # Depression # Anxiety - Continue sertraline 25 mg PO daily # Diet: Renal diet 2 GM NA; 60/60/75 CHO counting level 2 # DVT prophylaxis:heparin sq # Dispo: Floor pending course # Code: Full Code Rylan Stout MD 10/21/2018 Hospital Medicine Team Pager [phone] * Era Anderson RN - 10/20/2018 4:14 PM EDT Diabetes Clinical Nurse Specialist Consulted to see pt for diabetes education. Mr. Rudolph reports ~ 30 year Hx type 2 diabetes thathe has treated with insulin for the past ~ 25 years. He now uses a V-Go pump to deliver his insulinand recently established care with Dr. Roy in Endocrinology. His pump allows him to bolus up to 12 units with each meal. States that he does not vary the dose based on his carbohydrate consumptio n. Rare hypoglycemia. Pt reports that his HbA1c has improved to 9% (from 11%). States that he tries to eat a healthy diet(eats meals with his and son). Exercise is quite limited by his leg swelling and pain. Encouraged pt to consider chair exercises, and explained the benefits on enhanced glucose uptake and improved insulin sensitivity. Encouraged pt to check post-meal BG's on occasion and to discuss the results with Dr. Roy at his next visit. * Cari Burkett MD - 10/20/2018 11:47 AM EDT [facility] Medicine - [facility] Team Inpatient Progress Note ID: Sindi Rudolph is a 58 y.o. year old male with past medical history of ESRD on HD TTS, CAD s/p CABG 2014, IDDM, HTN, and HDL admitted on 10/19/2018 ( Hospital Day 1 day ) for left leg cellulitis. Active Hospital Problems Diagnosis ??? Cellulitis Resolved Hospital Problems No resolved problems to display. Interval History: - Admitted yesterday PM - No acute events overnight - CT LLE scheduled - Doing well today with some pain - Feels rash is improving, bearing weight - Denies CP, SOB, n/v/d Meds: ??? insulin glargine 20 Units Subcutaneous Q24H ??? insulin lispro 0-10 Units Subcutaneous TID WC ??? insulin lispro 2-8 Units Subcutaneous Q4H RICHELLE ??? aspirin 325 mg Oral Daily ??? B Complex-Vitamin C-Folic Acid 1 capsule Oral Daily ??? bumetanide 2 mg Oral BID ??? gabapentin 300 mg Oral TID ??? losartan 50 mg Oral Daily ??? atorvastatin 10 mg Oral QPM ??? sertraline 25 mg Oral Daily ??? sodium chloride 0.9 % (flush) 5 mL Intravenous BID ??? heparin (Porcine) 5,000 Units Subcutaneous 2 times per day ??? ampicillin-sulbactam 3 g Intravenous Q12H ??? tamsulosin 0.4 mg Oral Daily PRN medications sodium chloride 0.9 % (flush), lidocaine, Glucose 40% oral gel OR dextrose OR glucagon (human recombinant), acetaminophen Current Facility-Administered Medications Medication Dose Route Frequency ??? sodium chloride 0.9 % (flush) flush 5-20 mL 5-20 mL Intravenous Q1 Min PRN ??? lidocaine (XYLOCAINE) 10 mg/mL (1 %) injection 3 mg 0.3 mL Subcutaneous Once PRN ??? glucose (GLUTOSE) 40% oral gel 15-30 g Buccal Q30 Min PRN Or ??? dextrose 50% intravenous solution 25-50 mL 12.5-25 g Intravenous Q1H PRN Or ??? glucagon (human recombinant) injection SolR 1 mg 1 mg Intramuscular Q1H PRN ??? acetaminophen (TYLENOL) tablet 650 mg 650 mg Oral Q8H PRN Physical Exam: Last value Range last 24 hrs Temperature Temp: 36.6 ??C (97.9 ??F) Temp: [36.2 ??C (97.1 ??F)-36.8 ??C (98.3 ??F)] Heart Rate Heart Rate: 90 Heart Rate: [90-109] Blood Pressure BP: 155/74 BP: (126-165)/(63-81) Respiratory Rate Resp: 19 Resp: [16-28] SpO2 SpO2: 93 % SpO2: [86 %-100 %] Intake/Output Summary (Last 24 hours) at 10/20/2018 1147 Last data filed at 10/19/2018 2123 Gross per 24 hour Intake 10 ml Output -- Net 10 ml Patient Vitals for the past 168 hrs: Weight 10/19/18 1353 105 kg (231 lb 7.7 oz) Admit wt: 105 kg Gen: Well-appearing man resting comfortably in chair, AOx3, NAD Eyes: PERRLA, EOMI, anicteric ENT: Moist mucous membranes, -erythema/exudate, neck supple, no lymphadenopathy CV: RRR, S1 S2 normal, without murmurs, rubs, or gallops Respiratory: Clear to auscultation bilaterally, without rales or rhonchi, good inspiratory effort GI: Soft, nontender, nondistended, no rebound tenderness or guarding, normoactive bowel sounds, no hepatosplenomegaly Skin: Normal temperature and turgor, no cyanosis or petechiae. LLE edematous and erythematous from the knee below with poorly demarcated borders. No purulent drainage noted. Neuro: Normal strength, normal sensation, without focal deficits, wiggles toes Ext: 1+ peripheral edema, 2+ peripheral pulses Labs: Recent Labs 10/19/18 1520 WBC 6.6 HGB 11.1* HCT 34.3* PLATELET 277 Recent Labs 10/19/18 1520 NA 139 K 3.6 CL 91* CO2 36* BUN 17 CREATININE 2.78* GLUCOSE 216* Recent Labs 10/19/18 1520 CALCIUM 9.4 No results for input(s): AST, ALT, ALKPHOS, BILITOT, BILIDIR in the last 168 hours. Imaging: CT Lower Extremity w Contrast Left (Results Pending) Microbiology: Microbiology Results (Last 30 days) No results found for the last 720 hours. Assessment and Plan: Sindi Rudolph is a 58 y.o. year old male admitted on 10/19/2018 ( Hospital Day 1 day ) for LLE cellulitis. Slight improvement in cellulitic rash on IV Unasyn. WIll continue until clearer improvement of rashand no deep tissue involvement/abscesses on CT scan. # LLE Cellulitis - Continue Unasyn 3G Q12H - f/u CT LLE ?? # ESRD on HD TTS - Nephrology consult for HD needs - Continue bumex 2 mg PO BID ?? # IDDM # Peripheral Neuropathy - Patient uses V-GO subcu insulin device, no longer working - Moderate slide to calculate insulin requirements and transition to long acting as needed - Continue gabapentin 300 mg PO TID ?? # CAD # HTN - ASA 325 mg PO daily - Continue formulary statin, atorvastatin 10 mg PO daily - Continue losartan 50 mg PO daily ?? # Depression # Anxiety - Continue sertraline 25 mg PO daily # Diet: Renal diet 2 GM NA # DVT prophylaxis:heparin sq # Dispo: Floor pending course # Code: Full Code Cari Burkett MD 10/20/2018 Internal Medicine Hospital Medicine Team Pager [phone] Associated attestation - Ahsan Guevara MD - 10/20/2018 11:28 PM EDT Attending Attestation Please see Dr. Burkett's note for details of the patient history of presentation and data. I have discussed, reviewed and agree with the documented History, Physical findings, Assessment and Plan of care. I have examined the patient myself and personally reviewed all studies. In addition, I certify thatI am a D-H credentialed attending provider with admitting privileges and that the patient meets or has met medical necessity to require an inpatient IPI level of care meeting a minimum of two midnights or is on the [facility] inpatient only procedure list (status C) due to: significant cellulitis that hasfailed oral antibiotics. Exam appears improved based on recession of cellulitis from margins. CT LLE negative for deep infection/abscess. The antibiotics the patient had been on after his penultimate hospitalization were most likely insufficient to treat this infection. Based on improvement, will continue current regimen for now. The patient does not have the equipment to attach his insulin administration device. We have started him on a reduced dose of lantus which should be titrated to his needs. Appreciate renal assistance. Ahsan Guevara MD Internal Medicine 10/20/2018 * Cari Anderson RN - 10/20/2018 6:19 AM EDT Plan for CT still unscheduled. CT called again this am around 0615. documented in this encounter H&P Notes * Bessy Anaya MD - 10/19/2018 10:47 PM EDT Inpatient Hospital Medicine - Admission Note Problem List: Active Hospital Problems Diagnosis ??? Cellulitis Resolved Hospital Problems No resolved problems to display. Active Non-Hospital Problems Diagnosis ??? Pre-transplant evaluation for kidney transplant ??? [...] disease) ??? Proliferative diabetic retinopathy, both eyes ID: 58 y.o. Male presents to [facility] with left leg swelling. History of Present Illness: HPI 58 y/o male with pmhx ESRD on HD TTS, CAD s/p CABG 2014, IDDM, HTN, HPL who presents with left leg swelling. The patient reports being in his usual state of health until about 10 days ago when he began experiencing left lower extremity erythema, pain and fevers. He presented to [facility] where he was hospitalizedfor 3 days with fevers and lactic acidosis in the setting of LLE cellulitis. He was treated with 1 x dose of vancomycin followed by IV cefazolin with which he improved. He was discharged on 10/13 to complete cefazolin as an outpatient on HD days. The patient reports that his erythema was persistent at discharge and has progressively worsened over the last several days. He notes subjective fevers at home, persistent pain and progressive erythema that now extends to the level of his left knee. He states that he has significant pain with weight bearing and has been struggling to ambulate. His appetite is diminished but he denies nausea, vomiting. His bowel movements are at baseline. He does produce some urine but states that it is darker than usual. He has no past history of cellulitis and cannot recall an inciting injury. His most recent dose of antibiotics was earlier today when he went for dialysis. Review of Systems: Review of Systems 10 point review of systems negative other than what is detailed above. Past Medical and Surgical History: Past Medical History: Diagnosis Date ??? [...] PERIPHERAL IRIDOTOMY 04/06/2012 OD Swendris ??? PRO REMV CATARACT EXTRACAP,INSERT LENS 11/29/2012 CATARACT EXTRACTION, EXTRACAPSULAR, W/ LENS INSERTION performed by Erasmo Bajwa MD at [facility] ??? PRO REMV CATARACT EXTRACAP,INSERT LENS,COMP 07/18/2012 ? ? PRO REPAIR COMPLEX RETINA DETACH VITRECTOMY & MEMB PEEL 04/03/2012, 04/03/12 REPAIR COMPLEX RETINAL DETACHMENT, W/ VITRECTOMY, MEMBRANE PEELING performed by Matteo Diane MD at [facility] MAIN OR ? ? PRO REPAIR COMPLEX RETINA DETACH VITRECTOMY & MEMB PEEL 07/31/2012 REPAIR COMPLEX RETINAL DETACHMENT, W/ VITRECTOMY, MEMBRANE PEELING performed by Matteo Diane MD at [facility] MAIN OR ? ? PRO REPAIR COMPLEX RETINA DETACH VITRECTOMY & MEMB PEEL 01/08/2013 REPAIR COMPLEX RETINAL DETACHMENT, W/ VITRECTOMY, MEMBRANE PEELING performed by Matteo Diane MD at [facility] MAIN OR ??? PRO TX EXTENSIVE [...] YAG CAPSULOTOMY 11/15/[address] - [address] Bajwa Prior To Admission Medications: Medications Prior to Admission Medication Sig Dispense Refill Last Dose ??? glucagon, Human Recombinant, 1 mg Recon Soln Use in case of emergency for low blood sugar 1 each 5 ??? sub-q insulin device, 40 unit (V-GO 40) Device 40 Units by [facility].(Non-Drug; Combo Route) route daily. 30 Device 11 ??? insulin aspart U-100 (NOVOLOG) Solution Use 76 units daily via Vgo pump 30 mL 11 ??? blood sugar diagnostic strips Strip Use [...] Take 40 mg by mouth daily. Taking Allergies: No Known Allergies Family History: Family History Problem Relation Age [...] Hx ??? Heart Disease Neg Hx Social History and Habits: Social History Socioeconomic History ??? Marital status: Spouse name: Not on file ??? Number of children: Not on file ??? Years of education: Not on file ??? Highest education level: Not on file Occupational History ??? Occupation: unemployed Social Needs ??? Financial resource strain: Not on file ??? Food insecurity: Worry: Not on file Inability: Not on file ??? Transportation needs: Medical: Not on file Non-medical: Not on file Tobacco Use ??? Smoking status: Former Smoker ??? Smokeless tobacco: Never Used ??? Tobacco comment: quit in his 20's Substance and Sexual Activity ??? Alcohol use: No ??? Drug use: No ??? Sexual activity: Not on file Comment: deferred Lifestyle ??? Physical activity: Days per week: Not on file Minutes per session: Not on file ??? Stress: Not on file Relationships ??? Social connections: Talks on phone: Not on file Gets together: Not on file Attends christian service: Not on file Active member of club or organization: Not on file Attends meetings of clubs or organizations: Not on file Relationship status: Not on file ??? Intimate partner violence: Fear of current or ex partner: Not on file Emotionally abused: Not on file Physically abused: Not on file Forced sexual activity: Not on file Other Topics Concern ??? Not on file Social History Narrative ??? Not on file Immunizations: Immunization History Administered Date(s) Administered ??? Pneumococcal Polyvalent 05/23/2006 Physical Exam: Last Set of Vitals and range of vitals over past 24 hours: Last value Range last 24 hrs Temperature Temp: 36.8 ??C (98.3 ??F) Temp: [36.6 ??C (97.9 ??F)-36.8 ??C (98.3 ??F)] Heart Rate Heart Rate: 97 Heart Rate: [95-109] Blood Pressure BP: 157/63 BP: (138-165)/(63-75) Respiratory Rate Resp: 18 Resp: [16-28] SpO2 SpO2: 93 % SpO2: [91 %-95 %] Body mass index is 39.73 kg/m??. Physical Exam Constitutional: He is oriented to person, place, and time. He appears well- developed and well-nourished. No distress. HENT: Head: Normocephalic and atraumatic. Mouth/Throat: Oropharynx is clear and moist. No oropharyngeal exudate. Eyes: Pupils are equal, round, and reactive to light. EOM are normal. No scleral icterus. Neck: Normal range of motion. Neck supple. Cardiovascular: Normal rate, regular rhythm and normal heart sounds. Pulmonary/Chest: Effort normal and breath sounds normal. No stridor. No respiratory distress. He has no wheezes. He has no rales. Abdominal: Soft. Bowel sounds are normal. He exhibits no distension and no mass. There is no tenderness. There is no rebound and no guarding. Musculoskeletal: He exhibits edema. Decreased ROM left knee and left ankle secondary to pain, left knee joint effusion, 1-2+ pitting edema LLE Lymphadenopathy: He has no cervical adenopathy. Neurological: He is alert and oriented to person, place, and time. He displays normal reflexes. No cranial nerve deficit. Skin: Skin is warm and dry. Capillary refill takes less than 2 seconds. There is erythema. Psychiatric: He has a normal mood and affect. Nursing note and vitals reviewed. Laboratory (Last 24 Hours): Recent Results (from the past 24 hour(s)) Basic Metabolic Panel (non-fasting) Result Value Ref Range Glucose Lvl 216 (H) 65 - 199 mg/dL BUN 17 10 - 20 mg/dL Creatinine 2.78 (H) 0.80 - 1.50 mg/dL Sodium 139 135 - 145 mmol/L Potassium 3.6 3.5 - 5.0 mmol/L Chloride 91 (L) 98 - 107 mmol/L CO2 36 (H) 22 - 31 mmol/L Anion Gap 12 5 - 15 mmol/L Calcium 9.4 8.5 - 10.5 mg/dL eGFR 24 (L) >=60 mL/min/1.73 m?? eGFR 28 (L) >=60 mL/min/1.73 m?? Hemogram Result Value Ref Range WBC 6.6 4.0 - 9.5 x10(3)/mcL RBC 3.50 (L) 4.58 - 5.54 x10(6)/mcL Hemoglobin 11.1 (L) 13.7 - 16.5 gm/dL Hematocrit 34.3 (L) 40.5 - 48.5 % MCV 98.0 (H) 82.9 - 93.1 fL MCH 31.7 27.5 - 32.1 pg MCHC 32.4 32.0 - 35.7 gm/dL Platelets 277 145 - 357 x10(3)/mcL RDWSD 50.4 (H) 36.0 - 45.0 fL RDWCV 14.1 (H) 11.4 - 13.8 % MPV 9.3 7.6 - 12.9 fL nRBC % Auto 0.0 % nRBC Abs Auto 0.000 0.000 - 0.000 x10(3)/mcL Differential, Automated Result Value Ref Range Neutrophils % 71.8 % Neutr Abs (ANC) 4.78 1.70 - 6.10 x10(3)/mcL Lymphocytes % 13.1 % Lymphocytes Abs 0.9 0.9 - 3.2 x10(3)/mcL Monocytes % 7.5 % Monocyte Abs 0.5 0.3 - 0.9 x10(3)/mcL Eosinophils % 3.0 % Eosinophils Abs 0.2 0.0 - 0.4 x10(3)/mcL Basophils % 0.8 % Basophils Abs 0.0 0.0 - 0.1 x10(3)/mcL Immature Gran % 3.80 % Pura Gran Abs 0.25 (H) 0.00 - 0.04 x10(3)/mcL Blue Tube HOLD Result Value Ref Range Blue Hold Sample in lab. POCT Glucose Result Value Ref Range POC Glucose 165 65 - 199 mg/dL POCT Glucose Result Value Ref Range POC Glucose 181 65 - 199 mg/dL POCT Glucose Result Value Ref Range POC Glucose 241 (H) 65 - 199 mg/dL Microbiology: Microbiology Results (Last 30 days) No results found for the last 720 hours. Radiology: None Other Studies: Left Duplex 10/19/2018: No evidence of common femoral, femoral, or popliteal DVT. Patent PTV's of the distal calf with no evidence of thrombus. Unable to visualize the posterior tibial veins of the proximal to mid calf and the peroneal veins throughout the calf; cannot exclude thrombus. Assessment: 58 y/o male with pmhx ESRD on HD TTS, CAD s/p CABG 2014, IDDM, HTN, HPL who presents with left leg swelling in the setting of recently treated cellulitis. This is most likely incompletely treated cellulitis rather than recurrent cellulitis. I have low suspicion for necrotizing fasciitis (could not calculate LRINEC score - no CRP available). Will cover for MSSA, streptococcus and gram negatives given recent hospital stay and diabetes history. Will hold MRSA coverage at this time, however will add pending clinical course. Will plan for CT of the leftlower extremity with contrast. Will need to arrange with HD. Additionally, he does have a left kneeeffusion with limited ROM in the setting of pain. Would consider arthrocentesis of this joint if knee effusion or pain worsen. Plan: # LLE Cellulitis - Unasyn 3G Q12H - Pursue CT LLE, plan with HD - Consider orthopedics evaluation pending clinical course given left knee effusion # ESRD on HD TTS - Last HD today - Nephrology consult for HD needs - Continue bumex 2 mg PO BID # IDDM # Peripheral Neuropathy - Patient uses V-GO subcu insulin device - This stopped working during our evaluation - Given minimal PO intake, will place on moderate slide to calculate insulin requirements and transition to long acting as needed - Continue gabapentin 300 mg PO TID # CAD # HTN - ASA 325 mg PO daily - Continue formulary statin, atorvastatin 10 mg PO daily - Continue losartan 50 mg PO daily # Depression # Anxiety - Continue sertraline 25 mg PO daily ?? Admit to hospital medicine ?? Physical and Occupational Therapy referrals placed ?? DVT Prophylaxis - heparin ?? If currently a smoker - advised about smoking cessation and will provide smoking cessation material and support. ?? Pneumovax and Influenza Immunizations given as needed. ?? Discussed Advanced Directives and Code Status. The patient wishesto be Full Code. A copy of this document will be sent to the patient's Primary Care Physician and/or Referring Physician. BESSY ANAYA MD 10/19/2018 documented in this encounter ED Notes * Efraín Griffith RN - 10/19/2018 6:50 PM EDT Page out to regarding dialysis post CT * Efraín Griffith RN - 10/19/2018 6:00 PM EDT Page out to regarding dialysis after CT * Efraín Griffith RN - 10/19/2018 5:16 PM EDT Verbal report to Ivy Parker RN * Efraín Griffith RN - 10/19/2018 5:09 PM EDT Hospitalist at bedside * Sinan Patel MD - 10/19/2018 4:20 PM EDT ED ATTENDING NOTE: I was asked to see this patient by Ahsan Granger to assist with medical decision making regarding evaluation, management and disposition of this patient. Below reflects my involvement in medical decision making, please see the Associate Provider's note for additional details. Clinical Summary: 58 y.o. male with cellulitis of the left lower extremity recent inpatient stay for antibiotics with worsening with pain and swelling. Focused Exam: BP 138/64 (Patient Position: Sitting) Pulse (!) 109 Temp 36.7 ??C (98.1 ??F) Resp 18 Ht 162.6 cm (5' 4) Wt 105 kg (231 lb 7.7 oz) SpO2 95% BMI 39.73 kg/m?? Large redness and swelling to the left leg predominantly in the calf and tracking up towards the thigh. Decent range of motion of his joints. Compartments are soft. Medical Decision Makin-year-old male on dialysis with left lower extremity cellulitis. Recent inpatient admission for IV antibiotics and now again worsening redness and swelling. Antibiotics given at prior institution. He will be admitted to the hospital medicine service. Sinan Patel MD 10/19/18 1623 * Efraín Griffith RN - 10/19/2018 3:40 PM EDT LLE elevated * Efraín Griffith RN - 10/19/2018 3:15 PM EDT PA at bedside * Ahsan Granger PA - 10/19/2018 3:09 PM EDT Images from the original note were not included. Chief Complaint Patient presents with ??? Cellulitis HPI Sindi Rudolph is a 58 yo male with hx of ESRD on dialysis, CAD, status post CABG in 2015, HTN, HLD, and IDDM, who presents today for evaluation of left leg cellulitis. He states that he was [facility] after 3 days of inpatient IV abx for a left leg cellulitis. There is no inciting event that he can recall. He states that the leg has only worsened and has had no improvement despite the IV abx. He has never had cellulitis in this leg before. His most recent dose of antibiotics was earlier today when he went for dialysis. He received Vancomycin and ceftazidime. He reports decreased ROM of left knee secondary to swelling and pain. He denies any current nausea, vomiting, diarrh ea, dysuria, hematuria, fever, chills, cough. He has not had a fever or chills. No Known Allergies Review of Systems Constitutional: Negative for appetite change, chills, fatigue and fever. HENT: Negative for sneezing and sore throat. Eyes: Negative for photophobia and visual disturbance. Respiratory: Negative for cough and shortness of breath. Cardiovascular: Negative for chest pain and palpitations. Gastrointestinal: Negative for abdominal pain, constipation, diarrhea, nausea and vomiting. Genitourinary: Negative for difficulty urinating, dysuria, flank pain, frequency, hematuria and urgency. Musculoskeletal: Negative for back pain, myalgias and neck pain. Skin: Positive for color change. Neurological: Negative for dizziness, weakness, light-headedness, numbness and headaches. Physical Exam Constitutional: He is oriented to person, place, and time. He appears well- developed and well-nourished. No distress. HENT: Head: Normocephalic and atraumatic. Eyes: Pupils are equal, round, and reactive to light. EOM are normal. Neck: Normal range of motion. Neck supple. Cardiovascular: Normal rate, regular rhythm and normal heart sounds. Musculoskeletal: He exhibits edema. He exhibits no deformity. 1+ pitting edema of right lower extremity. 3+ pitting edema of left lower extremity. Decreased ROM of left knee secondary to pain and swelling. Neurological: He is alert and oriented to person, place, and time. No sensory deficit. Sensation, motor, strength intact. Skin: Skin is warm and dry. Capillary refill takes less than 2 seconds. There is erythema. Area of cellulitis on left lower extremity from proximal thigh to base of metatarsals. Psychiatric: He has a normal mood and affect. Recent Results (from the past 24 hour(s)) Basic Metabolic Panel (non-fasting) Result Value Ref Range Glucose Lvl 216 (H) 65 - 199 mg/dL BUN 17 10 - 20 mg/dL Creatinine 2.78 (H) 0.80 - 1.50 mg/dL Sodium 139 135 - 145 mmol/L Potassium 3.6 3.5 - 5.0 mmol/L Chloride 91 (L) 98 - 107 mmol/L CO2 36 (H) 22 - 31 mmol/L Anion Gap 12 5 - 15 mmol/L Calcium 9.4 8.5 - 10.5 mg/dL eGFR 24 (L) >=60 mL/min/1.73 m?? eGFR 28 (L) >=60 mL/min/1.73 m?? Hemogram Result Value Ref Range WBC 6.6 4.0 - 9.5 x10(3)/mcL RBC 3.50 (L) 4.58 - 5.54 x10(6)/mcL Hemoglobin 11.1 (L) 13.7 - 16.5 gm/dL Hematocrit 34.3 (L) 40.5 - 48.5 % MCV 98.0 (H) 82.9 - 93.1 fL MCH 31.7 27.5 - 32.1 pg MCHC 32.4 32.0 - 35.7 gm/dL Platelets 277 145 - 357 x10(3)/mcL RDWSD 50.4 (H) 36.0 - 45.0 fL RDWCV 14.1 (H) 11.4 - 13.8 % MPV 9.3 7.6 - 12.9 fL nRBC % Auto 0.0 % nRBC Abs Auto 0.000 0.000 - 0.000 x10(3)/mcL Differential, Automated Result Value Ref Range Neutrophils % 71.8 % Neutr Abs (ANC) 4.78 1.70 - 6.10 x10(3)/mcL Lymphocytes % 13.1 % Lymphocytes Abs 0.9 0.9 - 3.2 x10(3)/mcL Monocytes % 7.5 % Monocyte Abs 0.5 0.3 - 0.9 x10(3)/mcL Eosinophils % 3.0 % Eosinophils Abs 0.2 0.0 - 0.4 x10(3)/mcL Basophils % 0.8 % Basophils Abs 0.0 0.0 - 0.1 x10(3)/mcL Immature Gran % 3.80 % Pura Gran Abs 0.25 (H) 0.00 - 0.04 x10(3)/mcL Blue Tube HOLD Result Value Ref Range Blue Hold Sample in lab. CT Lower Extremity w Contrast Left (Results Pending) CT Lower Extremity w Contrast Left (Results Pending) Procedures MDM This is a 58-year-old male with history of end-stage renal disease, on dialysis, Tue,Thur,Sat, coronary artery disease, status post CABG in 2014, type 2 diabetes, on insulin, hypertension, [facility] from 10/11 to 10/13 who presents with worsening LLE cellulitis. He went to dialysis today and was found to have a rapidly spreading cellulitis of his left lower extremity into his thigh, so he was given 2 g of vancomycin and ceftazidime there. He has not had a fever or chills over the last few days. He states that the cellulitis never fully went away since being in the hospital, but over the last 24 hours it has spread from his knee up into his thigh rapidly. His desk representative ws concerned so recommended he come here to be admitted. On arrival here he has no signs of sepsis. He is hemodynamically stable. Ihave low suspicion for necrotizing infection given mild tenderness, reassuring labs, and overall clinical picture. CT scan was ordered to look for possible abscess given infection not improving despite IV antibiotics. DVT study also ordered which was negative. Patient admitted to hospital medicine.Discussed with Dr. Patel, ED attending. ED Course: -H&P -Labs reviewed: Normal lactate and WBC -DVT Study -Admit to hospital medicine Ahsan Granger PA 10/19/182010 documented in this encounter Miscellaneous Notes * Plan of Care - Chantale Cazares RN - 10/21/2018 5:13 PM EDT Problem: Patient Care Overview Goal: Plan of Care Review 10/20/18 0359 10/21/18 0824 Coping/Psychosocial Plan Of Care Reviewed With -- patient Plan of Care Review Progress progress toward functional goals is gradual -- OUTCOME EVALUATION NOTE: ?? OUTCOME SUMMARY: ?? A+Ox4, VSS on 2L until 1030, on RA for the remainder of shift. Pt c/o LLE pain, given scheduled PO tylenol and PRN PO Tramadol x1, w/relief, see JUN. LLE slightly less reddened and edematous today and pain improving. Pt worked w/OT today. Pt given scheduled medications per MD orders, see MAR. Pt went down for HD today, 1L off, given Epogen in HD. Pt showered independently this evening. This evening, Pt c/o LLE itching, paged MD for Sarna Lotion. Pt resting in chair safety maintained. ?? PLAN MOVING FORWARD: ?? Pain management, HD, PT/OT, possible d/c tomorrow ?? INDIVIDUALIZED FALL PREVENTION INTERVENTIONS: ?? Patient-specific fall risk factors per assessment: [current deficits]: IV sites, secondary diagnoses, impaired ROM in LLE ?? Assistance [level of assistance required for transfers and ambulation]: SBA w/cane ?? Supervision [direct monitoring required during toileting and ADLs]: Eyes-on ?? Surveillance [continuous indirect monitoring]: Masimo, bed alarm, purposeful rounding and safety checks ?? Patient-specific fall prevention interventions for sensory deficits provided, if applicable: [X] N/A ? CPG GOAL OUTCOME EVALUATION: * Consult Note - Magen Chaudhari MD - 10/21/2018 9:25 AM EDT NEPHROLOGY CONSULT NOTE PATIENT: Sindi Rudolph : 1960 REASON FOR CONSULTATION: HD management for ESRD HPI: This is a 58yo male with a history of ESRD on HD (TTS) for whom we are consulted for HD management. Patient is admitted for LLE cellulitis. Patient reports worsening edema, erythema, and pain inLLE about 10 days ago. Patient endoreses subjective fever. Patient denies any trauma, insect bites,or contact with plants/animals. Patient was apparently hospitalized at [facility] for 3 days and was treated with Vancomycin followed by Cefazolin. Patient was discharged on 10/13 to continue Cefazolin with every HD. Patient reports LLE erythema and pain worsened despite continued antibiotic treatment which prompted him to seek medical care at [facility]. On arrival patient was hemodynamically stable and afebri le. At the time of exam patient was sitting in chair awake, alert and appeared comfortable. Past Medical History: Diagnosis Date ??? Acute [...] PERIPHERAL IRIDOTOMY 04/06/2012 OD [facility] ??? PRO REMV CATARACT EXTRACAP,INSERT LENS 11/29/2012 CATARACT EXTRACTION, EXTRACAPSULAR, W/ LENS INSERTION performed by Erasmo Bajwa MD at [facility] ??? PRO REMV CATARACT EXTRACAP,INSERT LENS,COMP 07/18/2012 ? ? PRO REPAIR COMPLEX RETINA DETACH VITRECTOMY & MEMB PEEL 04/03/2012, 04/03/12 REPAIR COMPLEX RETINAL DETACHMENT, W/ VITRECTOMY, MEMBRANE PEELING performed by Matteo Diane MD at [facility] MA[facility] OR ? ? PRO REPAIR COMPLEX RETINA DETACH VITRECTOMY & MEMB PEEL 07/31/2012 REPAIR COMPLEX RETINAL DETACHMENT, W/ VITRECTOMY, MEMBRANE PEELING performed by Matteo Diane MD at [facility] MAIN OR ? ? PRO REPAIR COMPLEX RETINA DETACH VITRECTOMY & MEMB PEEL 01/08/2013 REPAIR COMPLEX RETINAL DETACHMENT, W/ VITRECTOMY, MEMBRANE PEELING performed by Matteo Diane MD at [facility] MAIN OR ??? PRO TX EXTENSIVE [...] CAPSULOTOMY 11/15/2013 OS - Dr Bajwa Family History Problem Relation Age of Onset [...] Neg Hx ??? Heart Disease Neg Hx Family History of renal disease: Mother - ESRD secondary to DM Social History: 15 pack-year smoking, quit 30 years ago. Occasional alcohol intake. Denies recreational drug use. Lives with and children. Outpatient medications: No current facility-administered medications on file prior to encounter. Current Outpatient Medications on File Prior to Encounter Medication Sig Dispense Refill ??? glucagon, Human Recombinant, 1 mg Recon Soln Use in case of emergency for low blood sugar 1 each 5 ??? sub-q insulin device, 40 unit (V-GO 40) Device 40 Units by [facility].(Non-Drug; Combo Route) route daily. 30 Device 11 ??? insulin aspart U-100 (NOVOLOG) Solution Use 76 units daily via Vgo pump 30 mL 11 ??? blood sugar diagnostic strips Strip Use [...] Tablet Take 40 mg by mouth daily. MEDICATIONS: ??? insulin glargine 20 Units Subcutaneous Q24H ??? insulin lispro 0-10 Units Subcutaneous TID WC ??? insulin lispro 2-8 Units Subcutaneous Q4H RICHELLE ??? acetaminophen 650 mg Oral Q6H RICHELLE ??? aspirin 325 mg Oral Daily ??? B Complex-Vitamin C-Folic Acid 1 capsule Oral Daily ??? bumetanide 2 mg Oral BID ??? gabapentin 300 mg Oral TID ??? losartan 50 mg Oral Daily ??? atorvastatin 10 mg Oral QPM ??? sertraline 25 mg Oral Daily ??? sodium chloride 0.9 % (flush) 5 mL Intravenous BID ??? heparin (Porcine) 5,000 Units Subcutaneous 2 times per day ??? ampicillin-sulbactam 3 g Intravenous Q12H ??? tamsulosin 0.4 mg Oral Daily No Known Allergies ROS: Constitutional - No weight loss. Skin - Negative except HPI HEENT - No headaches, visual changes. Resp - No cough, shortness of breath, or wheezing. CV - No chest pain, palpitations, dizziness, orthopnea/PND. GI - No nausea, vomiting, abdominal pain, change in bowel habits or stool color. - No flank pain. No dysuria or hematuria. Neuro - No focal weakness, numbness or tingling. PHYSICAL EXAM: Last value Range last 24 hrs Temperature Temp: 36.3 ??C (97.4 ??F) Temp: [36.3 ??C (97.4 ??F)-37.1 ??C (98.8 ??F)] Heart Rate Heart Rate: 92 Heart Rate: [84-95] Blood Pressure BP: 130/61 BP: (130-156)/(61-77) Respiratory Rate Resp: 18 Resp: [17-19] SpO2 SpO2: 92 % SpO2: [63 %-99 %] Appearance - Awake and alert. NAD. Skin - No wound. HEENT - No sclera icterus. Moist oral mucosa. Chest - Lungs CTA. Heart - S1 and S2. RRR. No MRG. No JVD. Abd - Obese abdomen. Soft. Non-tender. Non-distended. Normal BS. Ext - LUE AVF w/ good thrill/ bruit. Warm extremities. LLE erythema, edema, and mild tenderness. Neuro - Normal speech. Intake/Output Summary (Last 24 hours) at 10/21/2018 1335 Last data filed at 10/20/20182023 Gross per 24 hour Intake 855 ml Output 875 ml Net -20 ml Labs: CBC: Recent Labs 10/21/18 0642 10/20/18191110/19/18 1520 WBC 7.2 6.5 6.6 HGB 9.8* 9.8* 11.1* PLATELET 253 259 277 Chemistry: Recent Labs 10/21/18 0642 10/20/18191110/19/18 1520 NA 133* 132* 139 K 4.3 4.4 3.6 CL 91* 89* 91* CO2 31 32* 36* BUN 39* 35* 17 CREATININE 4.50* 3.81* 2.78* GLUCOSE 122 196 216* Recent Labs 10/21/18 0642 10/20/18191110/19/18 1520 CALCIUM 8.5 8.6 9.4 LFT's: Recent Labs 10/19/18 1520 BILITOT Not Perf BILIDIR Not Perf ALBUMIN 4.1 ALKPHOS 164* ALT 33 AST 69* IMPRESSION/ RECOMMENDATIONS: 1. ESRD on HD (T/T/S) - Secondary to diabetic nephropathy. Outpatient HD at [facility]. - Access: LUE AVF - HD today (4h, 3k, 2L goal UF). Next HD on 10/24. - Continue Bumex 2mg BID to maintain euvolemia. Patient still makes urine. - Avoid NSAIDs and other nephrotoxins. - Monitor Is and Os. - Renally dose medications. 2. HTN - Well controlled on Losartan 50mg daily and Bumex 2mg BID. 3. Anemia - Hb not at goal. Will continue EPO with HD as indicated. 4. BMD - Ca++ WNL. Will obtain Phos and PTH (add-on). We will continue to follow. Please call with any questions. Magen Chaudhari MD Nephrology Fellow Associated attestation - Alan Condon MD - 10/21/2018 9:16 PM EDT I saw and discussed the patient with the fellow and agree with the assessment and plan in his note.Patient is seen on dialysis and tolerating procedure without incident. We will continue to run dialysis per outpatient schedule Tuesday as long as patient is in house. Patient is being treated for cellulitis with Unasyn. He received dose epogen gentle dialysis. * Plan of Care - Yodit Helton OTA - 10/21/2018 9:10 AM EDT Occupational Therapy Treatment Note Treatment Number OT: 2 Patient profile: Sindi Rudolph is a 58 y.o. male patient of Dr. Ahsan Guevara MD, admitted on 10/19/2018 for left leg swelling Social History: Patient lives with his and 31 year old son. is w/c bound and can not provide assistance to pt at home. Home Setup: 2 levels with 0 MILDRED and a FOS to bedroom upstairs; no railing, uses wall for support. Bathroom on 1st level with stall shower. DME: shower chair (doesn't use); grab bars in shower; cane Baseline ADL/Mobility: Pt is independent with ADLs at baseline and has recently been usign a cane for functional mobility. Pt uses public transportation to go to appointments. Son or does the grocery shopping; store within walking distance. No one in the household drives. Pt reports falling down 3 stairs ~ 2 weeks ago; pt denies injury. Pt does not use O2 at home. Pt is sedentary at baselineand mostly watches t.v. ?? Precautions/Special Considerations: falls, LLE pain, blind in R eye S: My used to have one of these sock putter on things, but I dont know where it is O: Patient seen for therapeutic activities and demonstrated the following: ?? Self-care: ?? Pt able to doff/cecy socks with use of AD (sock aid, dressing stick, LH shoe horn) after training and education ?? Pt mobilizing with sba fww, no LOB, increased time 2' pain ?? Pt able to access drawers and refrigerator in kitchen to retrieve snack items ?? Functional Mobility: ?? Pt able to mobilize functional household distances with use of fww ?? Cognition: ?? Behavior / Mood: alert and cooperative ?? Alert and oriented to: person, place, time and situation ?? Follows commands: multi step ?? Attention: WFL ?? Safety awareness: WFL Vision & Perception: ?? corrective lenses time piece repairer ?? Blind in R eye ?? Endurance: No SOB or fatigued noted after session Pain: co pain in LLE with mobility, increased time Education: Pt/family/caregiver education ongoing regarding: Role of occupational therapy/rehabilitation, Adaptive equipment training and ADL. Staff Communication: Patient status, treatment, and mobility recommendations discussed with nursing/other staff. ASSESSMENT: Pt seen for continuation of self care OT goal to promote functional independence and mobility. Pt educated for use of LB AE, able to preform ADL dressing and then mobilize into kitchen area for snack retrieval. Pt making good progress toward OT goals, anticipate he will be able to return home once medically ready for dc. Pt will benefit from ongoing therapeutic interventions to achieve pt's and therapy goals Anticipated Discharge Disposition: home with assist, home with home health Equipment Recommendations: none anticipated Other Recommendations: ?? Utilize upright chair position using bed features or transfer to recliner chair as appropriate with SBA and FWW ?? Ambulate as tolerated ?? Encourage participation in ADL's by providing set up A on tray table and physical assist only asneeded Goals: To be achieved by 10/27/18. 1. Pt will demonstrate independence with functional mobility for ADLs Goal partly met 2. Pt will demonstrate mod I with LB dressing using AE as needed. Goal Met 3. Pt will demonstrate independence with compensatory strategies for low vision. Goal ongoing 4. Pt will demonstrate mod I with UB/LB bathing and dressing. Goal ongoing Therapy Frequency: 2-4 times/wk Total Evaluation Minutes, Occupational Therapy: 28(1x schm 1x theract) Pager: [phone] JEOVANNY Peterson Occupational Therapy Rehabilitation Department * Plan of Care - Julianna Davila RN - 10/21/2018 3:32 AM EDT Problem: Patient Care Overview Goal: Plan of Care Review Outcome: Ongoing (Interventions Implemented as Appropriate) 10/20/18 0359 10/20/182014 Coping/Psychosocial Plan Of Care Reviewed With -- patient Plan of Care Review Progress progress toward functional goals is gradual -- OUTCOME EVALUATION NOTE: OUTCOME SUMMARY: Pt is alert and oriented x4, VSS, on 2L NC overnight due to destating. Pt complained of 6/10 LLE pain, Tramadol given with good effect, One time 3mg Melatonin given for sleep. Scheduled IV ABX given,Scheduled meds given, BG monitored, coverage given as needed, pt SBA to bathroom. Pt states HD today, no order in for dialysis today (MD notified). Pt is currently in bed, bed alarm on, call light within reach, safety maintained. PLAN MOVING FORWARD: Pain management, HD INDIVIDUALIZED FALL PREVENTION INTERVENTIONS: Patient-specific fall risk factors per assessment: [current deficits]: IV site, Masimo, general weakness Assistance [level of assistance required for transfers and ambulation]: SBA w/ cane Supervision [direct monitoring required during toileting and ADLs]: Eyes on Surveillance [continuous indirect monitoring]: Safety checks, bed alarm on, call light within reach, fall prevention maintained Patient-specific fall prevention interventions for sensory deficits provided, if applicable: [X] N/A CPG GOAL OUTCOME EVALUATION: * Plan of Care - Chantale Cazares RN - 10/20/2018 6:38 PM EDT Problem: Patient Care Overview Goal: Plan of Care Review Outcome: Ongoing (Interventions Implemented as Appropriate) 10/20/18 0359 10/20/18 0936 Coping/Psychosocial Plan Of Care Reviewed With -- patient Plan of Care Review Progress progress toward functional goals is gradual -- OUTCOME EVALUATION NOTE: OUTCOME SUMMARY: A+Ox4, VSS on RA except once while sleeping, patient desatted to 63% recovering to mid 90s within minutes after being woken, paged. Pt c/o LLE pain, given PRN and scheduled PO tylenol. Pt requested something stronger than tylenol, paged and orded Tramadol. Pt then declined offers for Tramadol, will continues to assess pain. FS schedule changed to Q4, BG becoming more controlled over the course of shift. Pt went down for CT of LLE, see results review. LLE extremity continues to be red,painful, edematous w/weak pulses and slightly decreased ROM, unchanged from yesterday per report. Pt worked w/PT today. Pt given scheduled medications per MD orders, see JUN. Pt resting in chair safety maintained. PLAN MOVING FORWARD: Pain management, HD tomorrow, PT/OT INDIVIDUALIZED FALL PREVENTION INTERVENTIONS: Patient-specific fall risk factors per assessment: [current deficits]: IV sites, secondary diagnoses, impaired ROM in LLE Assistance [level of assistance required for transfers and ambulation]: SBA w/cane Supervision [direct monitoring required during toileting and ADLs]: Eyes-on Surveillance [continuous indirect monitoring]: Masimo, bed alarm, purposeful rounding and safety checks Patient-specific fall prevention interventions for sensory deficits provided, if applicable: [X] N/A CPG GOAL OUTCOME EVALUATION: * Plan of Care - Ira Lizarraga, PT - 10/20/2018 3:48 PM EDT Physical Therapy Evaluation Patient profile: 58 y/o male with pmhx ESRD on HD TTS, CAD s/p CABG 2014, IDDM, HTN, HPL who presents with left leg swelling. Patient with the following active problems: Past [...] PERIPHERAL IRIDOTOMY 04/06/2012 OD Swendris ??? PRO REMV CATARACT EXTRACAP,INSERT LENS 11/29/2012 CATARACT EXTRACTION, EXTRACAPSULAR, W/ LENS INSERTION performed by Erasmo Bajwa MD at [facility] ??? PRO REMV CATARACT EXTRACAP,INSERT LENS,COMP 07/18/2012 ? ? PRO REPAIR COMPLEX RETINA DETACH VITRECTOMY & MEMB PEEL 04/03/2012, 04/03/12 REPAIR COMPLEX RETINAL DETACHMENT, W/ VITRECTOMY, MEMBRANE PEELING performed by Matteo Diane MD at [facility] ? ? PRO REPAIR COMPLEX RETINA DETACH VITRECTOMY & MEMB PEEL 07/31/2012 REPAIR COMPLEX RETINAL DETACHMENT, W/ VITRECTOMY, MEMBRANE PEELING performed by Matteo Diane MD at [facility] OR ? ? PRO REPAIR COMPLEX RETINA DETACH VITRECTOMY & MEMB PEEL 01/08/2013 REPAIR COMPLEX RETINAL DETACHMENT, W/ VITRECTOMY, MEMBRANE PEELING performed by Matteo Diane MD at [facility] OR ??? PRO [place] EXTENSIVE [...] 11/15/2013 OS - [address] Bajwa Social History: Pt resides with in two story home without steps to enter. Pt has flight to bedroom, no railing, braces self against wall and uses cane.Pt's is in a wheelchair,neither pt nor drive. Pt uses a [employer] for transportation.Pt currently using cane d/t LLE pain and erythema. Precautions/Special Considerations: fall risk, AAT Mobility and Positioning Recommendations: ?? Pt. to utilize RW and CTG for ambulation and transfers with nursing. ?? Please encourage up to chair for meal times as able. ?? Pt encouraged to ambulate frequently with staff, getting into the bathroom for toileting and walking out in the rivera >/= 3 times daily as able. Subjective: ???My left lef hurts a lot when I move?? Objective: Pt seen for evaluation today. Pain: Number Location At rest 11/08 LLE With activity 01/09 LLE Vital Signs: At Rest With Activity SpO2 (RA) 98% 97% BP (MAP) stable stable HR stable stable Mental Status: alert, oriented to person, place, and time Vision: blind right eye Skin: cellulitis left LE Musculoskeletal: ROM: WFL'S throughout Strength: generalized weakness from baseline Sensation: Pt reports numbness B LE's Bed Mobility: Supine to Sit: ind Sit to Supine: ind Transfers: Sit to Stand: sup with RW Stand to Sit: sup with RW Bed to Chair: sup with RW Gait: Distance: 150 feet Device used: RW Level of assist: CTG Gait mechanics: step to gait progressing to step through. Stairs: TBE'D Balance: Sitting Static: good Sitting Dynamic: good Standing Static: good- with RW Standing Dynamic / Gait: Good- with RW Education: patient has been educated on Transfers, Assistive device/technique, Breathing exercises,Safety , Equipment use, Gait , Activity pacing/Energy conservation, Role of therapy and Discharge planning and needs reinforcement. Patient status, treatment, and mobility recommendations discussed with nursing. Assessment: Sindi Rudolph was seen today for physical therapy evaluation. Upon eval, pt demonstrates pain LLE which increases with mobility, decr balance, strength and activity tolerance from baseline.Deficits all impacting upon mobility. To benefit from ongoing therapy, anticipate DC to home when medically ready with VNA services as needed.. The pt would benefit from skilled therapy services while in the hospital to maximize functional abilities. Discharge Recommendations: Based on the current findings, Anticipated Discharge Disposition: home with assist, home with home health when medically ready for hospital discharge. Consult Recommendations: No other consults recommended at this time. Equipment needs: Rolling walker Goals: To be achieved by 10/25/2018: 1. Pt. to demonstrate knowledge of safety limitations and precautions and will appropriately request assistance for functional activities and to mobilize. 2. Pt. to demonstrate understanding of appropriate breathing and pacing exercises. 3. Pt. to perform all transfers independently using a front wheeled walker. 4. Pt. to ambulate 200 feet independently using a a front wheeled walker. 5. Pt. to ambulate up/down 12 step/stairs using straight cane independently. 6. Family or caregiver to demonstrate understanding of therapeutic interventions to support the care of the patient. Plan: Therapy Frequency: 2-4 times/wk for therapy including balance training, gait training, patient/family education, stair training, strengthening and transfer training. Patient/family understand and [...] Unstable/Unpredictable x ?? Clinical decision making of moderate complexity based on pt's functional performance as outlinedin this evaluation. Time IN / OUT: 3290-3385 Total Evaluation Minutes, Physical Therapy: 23(PT eval and gait training with RW) Ira Lizarraga, PT Pager: [phone] Physical Therapy Inpatient Rehabilitation Department * Plan of Care - Laureen Pantoja OT - 10/20/2018 3:19 PM EDT Occupational Therapy Evaluation Patient profile: Sindi Rudolph is a 58 y.o. male patient of Dr. Ahsan Guevara MD, admitted on 10/19/2018 for left leg swelling. Past Medical History: Diagnosis Date ??? Acute [...] PERIPHERAL IRIDOTOMY 04/06/2012 OD Swendris ??? PRO REMV CATARACT EXTRACAP,INSERT LENS 11/29/2012 CATARACT EXTRACTION, EXTRACAPSULAR, W/ LENS INSERTION performed by Erasmo Bajwa MD at [facility] ??? PRO REMV CATARACT EXTRACAP,INSERT LENS,COMP 07/18/2012 ? ? PRO REPAIR COMPLEX RETINA DETACH VITRECTOMY & MEMB PEEL 04/03/2012, 04/03/12 REPAIR COMPLEX RETINAL DETACHMENT, W/ VITRECTOMY, MEMBRANE PEELING performed by Matteo Diane MD at [facility] ? ? PRO REPAIR COMPLEX RETINA DETACH VITRECTOMY & MEMB PEEL 07/31/2012 REPAIR COMPLEX RETINAL DETACHMENT, W/ VITRECTOMY, MEMBRANE PEELING performed by Matteo Diane MD at [facility] ? ? PRO REPAIR COMPLEX RETINA DETACH VITRECTOMY & MEMB PEEL 01/08/2013 REPAIR COMPLEX RETINAL DETACHMENT, W/ VITRECTOMY, MEMBRANE PEELING performed by Matteo Diane MD at [facility] ??? PRO TX EXTENSIVE [...] - Dr Bajwa Social History: Patient lives with his and 31 year old son. is w/c bound and can not provide assistance to pt at home. Home Setup: 2 levels with 0 MILDRED and a FOS to bedroom upstairs; no railing, uses wall for support. Bathroom on 1st level with stall shower. DME: shower chair (doesn't use); grab bars in shower; cane Baseline ADL/Mobility: Pt is independent with ADLs at baseline and has recently been usign a cane for functional mobility. Pt uses public transportation to go to appointments. Son or does the grocery shopping; store within walking distance. No one in the household drives. Pt reports falling down 3 stairs ~ 2 weeks ago; pt denies injury. Pt does not use O2 at home. Pt is sedentary at baselineand mostly watches t.v. Precautions/Special Considerations: falls, LLE pain, blind in R eye Subjective: I'm blind in my right eye. That's why I'm always running into things on the right side. Objective: Seen today for OT evaluation. Cognitive Status/Behavior: ?? Behavior / Mood: alert and cooperative ?? Alert and oriented to: person, place, time and situation ?? Follows commands: multi step and 100% of the time ?? Attention: WFL ?? Safety awareness: decreased insight into deficits; pt bumping into objects on R side Vision & Perception: ?? corrective lenses time piece repairer ?? Blind in R eye Communication: WFL Range of motion, strength, coordination: Hand dominance: right Bilateral UEs are within functional limitations LE limitations: pain and redness in LLE Sensation: numbness in B LE's d/t neuropathy Activities of Daily Living: Self-feeding: independent Dressing: pt c/o difficulty donning/doffing shorts and socks. Pt educated on available AE for LB dressing; pt verbalized understanding and acknowledged need for a sock aid. Pt uses a belt measurer at baseline to doff socks. Functional Mobility: Supine to sit: SBA with HOB elevated Sit to stand: SBA to FWW Ambulation: SBA with cues for safety d/t low vision on R side Stand to sit: SBA Balance: Sitting balance: independent Standing balance: SBA with FWW Vitals: At Rest With Activity SpO2 100% on 2L 99% RA Heart Rate 62 90 Pain: 7/10 LLE Skin: LLE redness foot > proximal thigh Education: patient have been educated on Role of occupational therapy/rehabilitation, Transfers, Assistive device/technique, Adaptive equipment training, ADL, Positioning, Safety, Precautions/Protocol, Functional Mobility, Activity pacing/Energy conservation, Balance, Recommendations and Discharge planning and verbalizes and demonstrates understanding. Patient status, treatment, and mobility recommendations discussed with nursing. Assessment: Pt has been seen for occupational therapy evaluation. Sindi Rudolph presents with the following performance skill deficits and client factors: increased pain, decreased activity tolerance, decreased flexibility/ROM, decreased strength, decreased sitting/standing balance and visual deficits. These performance deficits have led to activity limitations and participation restrictions in the following areas of occupation: dressing, bathing, toileting, transfers/mobility, home management, leisure and community mobility. Pt would benefit from instruction on AE for LB dressing and instr uction on compensatory strategies for low vision to promote independence and safety with I/ADLs. Ptwould benefit from further inpatient OT interventions to address performance deficits and maximize participation and independence with occupations of daily living. Equipment needs at discharge: belt measurer, sock aid Other Recommendations: ?? Utilize upright chair position using bed features or transfer to recliner chair as appropriate with SBA and FWW ?? Ambulate as tolerated ?? Encourage participation in ADL's by providing set up A on tray table and physical assist only asneeded Other Recommendations: No other consults recommended at this time Goals: To be achieved by 10/27/18. 1. Pt will demonstrate independence with functional mobility for ADLs 2. Pt will demonstrate mod I with LB dressing using AE as needed. 3. Pt will demonstrate independence with compensatory strategies for low vision. 4. Pt will demonstrate mod I with UB/LB bathing and dressing Plan: OT: Therapy Frequency: 2-4 times/wk Planned OT interventions: Role of occupational therapy/rehabilitation, Transfers, Assistive device/technique, Adaptive equipment training, ADL, Exercise, Positioning, Safety, Precautions/Protocol, Functional Mobility, Activity pacing/Energy conservation, Home Management, Balance, Recommendations and Discharge planning. Total Evaluation Minutes, Occupational Therapy: 23(evaluation ) 2016 OT Evaluation Code Rationale: ?? Diagnosis & [...] and measurable assessment of functional outcome. Pager: [phone] Laureen Pantoja OT 10/20/2018 Occupational Therapy Rehabilitation Department * Initial Assessments - Cheryl Yu RD - 10/20/2018 8:06 AM EDT Nutrition Initial Note Sindi Rudolph is a 58 y.o. male Reason for intervention: Education Renal diet, HD patient Nutrition Recommendations: Continue Renal diet, CHO lvl 2 If finger sticks remain high consider adjustment in insulin management - ? Need for meal associated Patient Active Problem List Diagnosis Code ??? [...] for kidney transplant Z01.818 ??? Cellulitis L03.90 Past Medical History: Diagnosis Date ??? Acute [...] dialysis, with long-term current use of insulin Active Orders Diet Renal diet 2 GM NA Frequency: Effective Now Number of Occurrences: Until Specified Admit Weight: 105 kg Estimated body mass index is 39.73 kg/m?? as calculated from the following: Height as of this encounter: 162.6 cm (5' 4). Weight as of this encounter: 105 kg (231 lb 7.7 oz). [place] Body Weight (IBW): [place] body weight: 59.2 kg (130 lb 8.2 oz) Adjusted ideal body weight: 77.5 kg (170 lb 14.4 oz) UBW: patient reports that his weight has increased a little bit since he moved to [place]; he states gradual increase in his dry weight. SBW: 71kg Estimated needs: Calories: 2130kcal Protein: 85 grams Today's medications: reviewed, Nephrocaps, insulin correction only Lab Results Component Value Date NA 139 10/19/2018 K 3.6 10/19/2018 CL 91 (L) 10/19/2018 CO2 36 (H) 10/19/2018 BUN 17 10/19/2018 CREATININE 2.78 (H) 10/19/2018 GLUCOSE 216 (H) 10/19/2018 CALCIUM 9.4 10/19/2018 Last Bowel Movement: 10/19/18 ESRD on HD TTS, CAD s/p CABG 2014, IDDM, HTN, HPL who presents with left leg swelling in the setting of recently treated cellulitis. Assessment: Patient is resting in bed, easily awakens. Reports excellent appetite and intakes. He declines the need for renal diet education, stating that he sees an RD at dialysis and his K+ and phos are in good control. States he does not take phos binders at home. Patient is well nourished in appearance with no signs of wasting observed. Nutrition to continue to follow up while inpatient THANKS MARÍA Limon Beeper #: [phone] * Plan of Care - Cari Anderson, RN - 10/20/2018 4:10 AM EDT Problem: Patient Care Overview Goal: Plan of Care Review Outcome: Ongoing (Interventions Implemented as Appropriate) 10/20/18 0359 Coping/Psychosocial Plan Of Care Reviewed With patient Plan of Care Review Progress progress toward functional goals is gradual OUTCOME EVALUATION NOTE: OUTCOME SUMMARY: Pt was A+Ox4. VSS. Placed on 2LNC while sleeping. C/o'd of 12/09 pain to LLE. Tylenol given x1 with good affect. Melatonin 3mg given. IV Unasyn administered. Blood glucose checked and covered as needed. Pt slept in between care. All safety maintained. No acute changes overnight. Will continue to monitor. PLAN MOVING FORWARD: IV abx CT scan Monitor blood glucose Monitor VS Monitor labs INDIVIDUALIZED FALL PREVENTION INTERVENTIONS: Patient-specific fall risk factors per assessment: [current deficits]: Blind in right eye, LLE cellulitis, pain, generalized weakness Assistance [level of assistance required for transfers and ambulation]: SBA Supervision [direct monitoring required during toileting and ADLs]: SBA Surveillance [continuous indirect monitoring]: close observation, room near nurses station, call medeiros within reach Patient-specific fall prevention interventions for sensory deficits provided, if applicable: [X] Yes Goal: Fall Prevention-Safe Patient Handling Outcome: Ongoing (Interventions Implemented as Appropriate) 10/19/18201010/19/182099 Luna Fall Risk History of Falling 0 -- Secondary Diagnosis 15 -- Ambulatory Aids 15 -- Intravenous Therapy/Heparin/Saline Lock 20 -- Gait/Transferring 0 -- Mental Status 0 -- Score 50 -- OTHER Luna Fall Risk High -- Restraint Interventions Safety Promotion/Fall Prevention -- activity supervised;fall prevention program maintained;nonskid shoes/slippers when out of bed;safety round/check completed Positioning Body Position -- lower extremity elevated, left Activity Activity Type -- activity adjusted per tolerance;ambulated in room Activity Assistance Provided -- assistance, stand-by Assistive Device Utilized -- front-wheel walker Goal: Infection Control Outcome: Ongoing (Interventions Implemented as Appropriate) 10/19/18201010/19/182099 Safety Interventions Isolation Precautions -- standard precautions maintained Infection Prevention -- environmental surveillance performed;single patient room provided;rest/sleep promoted Coping Strategies Supportive Measures active listening utilized;positive reinforcement provided;verbalization of feelings encouraged -- Goal: Interdisciplinary Rounds/Family Conf Outcome: Ongoing (Interventions Implemented as Appropriate) 10/20/18358 Interdisciplinary Rounds/Family Conf Participants nursing;patient;physician;physical therapy Problem: Pain, Acute (Adult) Intervention: Monitor/Manage Analgesia 10/19/18201010/20/18358 Manage Acute Burn Pain Pain Management Interventions -- pillow support provided;relaxation techniques promoted;pain management plan reviewed with patient/caregiver Safety Interventions Medication Review/Management medications reviewed -- Intervention: Mutually Develop/Implement Acute Pain Management Plan 10/20/18358 Manage Acute Burn Pain Pain Management Interventions pillow support provided;relaxation techniques promoted;pain management plan reviewed with patient/caregiver Intervention: Support/Optimize Psychosocial Response to Acute Pain 10/19/182010 Coping Strategies Supportive Measures active listening utilized;positive reinforcement provided;verbalization of feelings encouraged Diversional Activities smartphone;[employer] Family/Support System Care self-care encouraged Trust Relationship/Rapport care explained;choices provided;emotional support provided;empathic listening provided;questions answered;questions encouraged;reassurance provided;thoughts/feelings acknowledged Goal: Identify Related Risk Factors and Signs and Symptoms Related risk factors and signs and symptoms are identified upon initiation of Human Response Clinical Practice Guideline (CPG) Outcome: Ongoing (Interventions Implemented as Appropriate) 10/20/18358 Pain, Acute Related Risk Factors (Acute Pain) infection Goal: Acceptable Pain Control/Comfort Level Patient will demonstrate the desired outcomes by discharge/transition of care. Outcome: Ongoing (Interventions Implemented as Appropriate) 10/20/18358 Pain, Acute (Adult) Acceptable Pain Control/Comfort Level making progress toward outcome Problem: Infection, Risk/Actual (Adult) Intervention: Manage Suspected/Actual Infection 10/19/18 2100 Safety Interventions Isolation Precautions standard precautions maintained Goal: Identify Related Risk Factors and Signs and Symptoms Related risk factors and signs and symptoms are identified upon initiation of Human Response Clinical Practice Guideline (CPG) Outcome: Ongoing (Interventions Implemented as Appropriate) 10/20/18358 Infection, Risk/Actual Infection, Risk/Actual: Related Risk Factors skin integrity impairment Signs and Symptoms (Infection, Risk/Actual) pain Goal: Infection Prevention/Resolution Patient will demonstrate the desired outcomes by discharge/transition of care. Outcome: Ongoing (Interventions Implemented as Appropriate) 10/20/18 0359 Infection, Risk/Actual (Adult) Infection Prevention/Resolution making progress toward outcome * ED Triage - Michelle Saucedo RN - 10/19/2018 1:53 PM EDT Patient c/o LLE cellulitis, states he is already taking antibiotics, he states the cellulitis is getting worse. Starts at his groin and goes down to his foot. Ambulatory, alert and oriented. documented in this encounter Plan of Treatment Not on file documented as of this encounter Procedures Procedure Name Priority Date/Time Associated Diagnosis Comments POCT GLUCOSE Routine 10/22/2018 11:22 AM EDT PTH Routine 10/22/2018 9:44 AM EDT POCT GLUCOSE Routine 10/22/2018 7:22 AM EDT POCT GLUCOSE Routine 10/22/2018 3:44 AM EDT POCT GLUCOSE Routine 10/21/2018 11:42 PM EDT POCT GLUCOSE Routine 10/21/2018 8:13 PM EDT POCT GLUCOSE Routine 10/21/2018 3:17 PM EDT POCT GLUCOSE Routine 10/21/2018 11:16 AM EDT HEPATITIS B SURFACE ANTIGEN STAT 10/21/2018 8:56 AM EDT POCT GLUCOSE Routine 10/21/2018 6:53 AM EDT HEMOGRAM Routine 10/21/2018 6:42 AM EDT DIFFERENTIAL, AUTOMATED Routine 10/21/2018 6:42 AM EDT CBC (WITH DIFF) Routine 10/21/2018 6:42 AM EDT PHOSPHORUS Routine 10/21/2018 6:42 AM EDT BASIC METABOLIC PANEL Routine 10/21/2018 6:42 AM EDT POCT GLUCOSE Routine 10/21/2018 4:15 AM EDT POCT GLUCOSE Routine 10/20/2018 11:31 PM EDT POCT GLUCOSE Routine 10/20/2018 7:53 PM EDT HEMOGRAM Routine 10/20/2018 7:12 PM EDT DIFFERENTIAL, AUTOMATED Routine 10/20/2018 7:12 PM EDT CBC (WITH DIFF) Routine 10/20/2018 7:12 PM EDT BASIC METABOLIC PANEL Routine 10/20/2018 7:12 PM EDT POCT GLUCOSE Routine 10/20/2018 4:[address] LOWER EXTREMITY W CONTRAST LEFT STAT 10/20/2018 4:03 PM EDT POCT GLUCOSE Routine 10/20/2018 11:37 AM EDT POCT GLUCOSE Routine 10/20/2018 9:14 AM EDT POCT GLUCOSE Routine 10/20/2018 6:54 AM EDT POCT GLUCOSE Routine 10/20/2018 3:26 AM EDT POCT GLUCOSE Routine 10/19/2018 11:42 PM EDT POCT GLUCOSE Routine 10/19/2018 9:38 PM EDT POCT GLUCOSE Routine 10/19/2018 8:21 PM EDT POCT GLUCOSE Routine 10/19/2018 6:40 PM EDT EKG 12-LEAD STAT 10/19/2018 5:02 PM EDT DUPLEX FOR DVT, LEG, UNILAT STAT 10/19/2018 3:24 PM EDT Cellulitis of leg, left L-LACTATE2 WHOLE BLOOD Routine 10/19/2018 3:23 PM EDT HEMOGRAM STAT 10/19/2018 3:20 PM EDT DIFFERENTIAL, AUTOMATED STAT 10/19/2018 3:20 PM EDT BLUE TUBE HOLD STAT 10/19/2018 3:20 PM EDT CBC (WITH DIFF) STAT 10/19/2018 3:20 PM EDT HEPATIC FUNCTION PANEL STAT 10/19/2018 3:20 PM EDT BASIC METABOLIC PANEL STAT 10/19/2018 3:20 PM EDT documented in this encounter Results * POCT Glucose (10/22/2018 11:22 AM EDT) Glucose, POC 115 65 - 199 mg/dL [facility] Comment: Supplemental ranges: <140 mg/dL before meals <180 mg/dL all other times of the day Blood specimen (specimen) 10/22/2018 11:22 AM EDT 10/22/2018 11:22 AM EDT Rylan Stout MD POINT OF CARE TEST O RDERABLES [facility] [place] [address] * (ABNORMAL) PTH (10/22/2018 9:44 AM EDT) Parathyroid Hormone 131(H) 15 - 65 pg/mL [facility] Blood specimen (specimen) 10/22/2018 9:44 AM EDT 10/22/2018 10:21 AM EDT Narrative Resulting Agency Comment Spec In Lab Alan Condon MD CHEMISTRY ORDERABLES Performing Organization Address [facility] Co de Phone Number [facility] [place] [address] * POCT Glucose (10/22/2018 7:22 AM EDT) Glucose, POC 132 65 - 199 mg/dL [facility] Comment: Supplemental ranges: <140 mg/dL before meals <180 mg/dL all other times of the day Blood specimen (specimen) 10/22/2018 7:22 AM EDT 10/22/2018 7:22 AM EDT Rylan Stout MD POINT OF CARE TEST O RDERABLES Performing Organization Address [facility] Co de Phone Number [facility] [place] [address] * POCT Glucose (10/22/2018 3:44 AM EDT) Glucose, POC 136 65 - 199 mg/dL [facility] Comment: Supplemental ranges: <140 mg/dL before meals <180 mg/dL all other times of the day Blood specimen (specimen) 10/22/2018 3:44 AM EDT 10/22/2018 3:44 AM EDT Rylan Stout MD POINT OF CARE TEST O RDERAROSIE Performing Organization Address [facility] Co de Phone Number [facility] [place] [address] * POCT Glucose (10/21/2018 11:42 PM EDT) Glucose, POC 126 65 - 199 mg/dL [facility] Comment: Supplemental ranges: <140 mg/dL before meals <180 mg/dL all other times of the day Blood specimen (specimen) 10/21/2018 11:42 PM EDT 10/21/2018 11:42 PM EDT Rylan Stout MD POINT OF CARE TEST O ANTONETTE Performing Organization Address [facility] Co de Phone Number [facility] [place] [address] * (ABNORMAL) POCT Glucose (10/21/2018 8:13 PM EDT) Glucose, POC 233(H) 65 - 199 mg/dL [facility] Comment: Supplemental ranges: <140 mg/dL before meals <180 mg/dL all other times of the day Blood specimen (specimen) 10/21/2018 8:13 PM EDT 10/21/2018 8:13 PM EDT Rylan Stout MD POINT OF CARE TEST Collette WHITMAN Performing Organization Address [facility] Co de Phone Number [facility] [place] [address] * POCT Glucose (10/21/2018 3:17 PM EDT) Glucose, POC 113 65 - 199 mg/dL [facility] Comment: Supplemental ranges: <140 mg/dL before meals <180 mg/dL all other times of the day Blood specimen (specimen) 10/21/2018 3:17 PM EDT 10/21/2018 3:17 PM EDT Rylan Stout MD POINT OF CARE TEST O ANTONETTE Performing Organization Address [facility] Co de Phone Number [facility] [place] [address] * (ABNORMAL) POCT Glucose (10/21/2018 11:16 AM EDT) Glucose, POC 201(H) 65 - 199 mg/dL [facility] Comment: Supplemental ranges: <140 mg/dL before meals <180 mg/dL all other times of the day Blood specimen (specimen) 10/21/2018 11:16 AM EDT 10/21/2018 11:16 AM EDT Rylan Stout MD POINT OF CARE TEST Collette WHITMAN Performing Organization Address [facility] Co de Phone Number [facility] [place] [address] * Hepatitis B Surface Antigen (10/21/2018 8:56 AM EDT) Hepatitis B Surface Antigen Negative Negative [facility] Blood specimen (specimen) 10/21/2018 8:56 AM EDT 10/21/2018 9:39 AM EDT Narrative Resulting Agency Comment Spec In Lab Alan Condon MD CHEMISTRY ORDERABLES Performing Organization Address [facility] de Phone Number [facility] [place] [address] * POCT Glucose (10/21/2018 6:53 AM EDT) [facility] Glucose, POC 113 65 - 199 mg/dL [facility] Comment: Supplemental ranges: <140 mg/dL before meals <180 mg/dL all other times of the day Blood specimen (specimen) 10/21/2018 6:53 AM EDT 10/21/2018 6:53 AM EDT Ahsan Guevara MD POINT OF CARE TEST Collette WHITMAN Performing Organization Address [facility] de Phone Number [facility] [place] [address] * (ABNORMAL) Phosphorus (10/21/2018 6:42 AM EDT) Phosphorus 5.8(H) 2.5 - 4.5 mg/dL [facility] Blood specimen (specimen) Venous Draw / Unknown 10/21/2018 6:42 AM EDT 10/21/2018 8:42 AM EDT Narrative Resulting Agency Comment Spec In Lab Magen Chaudhari MD CHEMISTRY ORDERA BLES Performing Organization Address City/[facility]/ZIP Co de Phone Number [facility] [place] [address] * (ABNORMAL) Differential, Automated (10/21/2018 6:42 AM EDT) Neutrophil % 73.9 % [facility] Neutrophil Absolute 5.34 1.70 - 6.10 x10(3)/mc L [facility] Lymph % 14.2 % [facility] Lymphocytes Abs 1.0 0.9 - 3.2 x10(3)/mc L [facility] Monocyte % 7.9 % [facility] Monocyte Abs 0.6 0.3 - 0.9 x10(3)/mc L [facility] Eos % 1.9 % [facility] Eosinophils Abs 0.1 0.0 - 0.4 x10(3)/mc L [facility] Basophil % 0.6 % [facility] Baso Absolute 0.0 0.0 - 0.1 x10(3)/mc L [facility] Immature Gran % 1.50 % [facility] Comment: Immature granulocytes(IG's)percentage and absolute count will include metamyelocytes, myelocytes, and promyelocytes. Blood smears from CBCs yielding IG's will be scanned manually for concordance. If this scan disagrees with the automated IG or if promyelocytes are noted, a manual differential will be performed. Immature Gran Absolute 0.11(H) 0.00 - 0.04 x10(3)/mc L [facility] Blood specimen (specimen) 10/21/2018 6:42 AM EDT 10/21/2018 6:51 AM EDT Narrative Resulting Agency Comment Spec In Lab Cari Burkett MD HEMATOLOGY ORDERABLE S Performing Organization Address [facility]/ZIP Co de Phone Number [facility] [place] [address] * (ABNORMAL) Hemogram (10/21/2018 6:42 AM EDT) [facility] White Blood Cell 7.2 4.0 - 9.5 x10(3)/ L [facility] Red Blood Cell 3.10(L) 4.58 - 5.54 x10(6)/mc L [facility] Hemoglobin 9.8(L) 13.7 - 16.5 gm/dL [facility] Hematocrit 29.9(L) 40.5 - 48.5 % [facility] Mean Cell Volume 96.5(H) 82.9 - 93.1 [facility] Mean Cell Hemoglobin 31.6 27.5 - 32.1 pg [facility] Mean Cell Hemoglobin Concentration 32.8 32.0 - 35.7 gm/dL [facility] Platelet 253 145 - 357 x10(3)/[facility] RDW Standard Deviation 47.8(H) 36.0 - 45.0 [facility] RDW coefficient of variation 13.6 11.4 - 13.8 % [facility] Mean Platelet Volume 8.9 7.6 - 12.9 [facility] NRBC% auto 0.0 % [facility] NRBC Absolute 0.000 0.000 - 0.000 x10(3)/[facility] Blood specimen (specimen) 10/21/2018 6:42 AM EDT 10/21/2018 6:51 AM EDT Narrative Resulting Agency Comment Spec In Lab Cari Burkett MD HEMATOLOGY ORDERABLE S [facility] [place] [address] * (ABNORMAL) Basic Metabolic Panel (non-fasting) (10/21/2018 6:42 AM EDT) [facility] Glucose 122 65 - 199 mg/dL [facility] Comment:Diabetes: >=200 mg/d L plus symptoms Blood Urea Nitrogen 39(H) 10 - 20 mg/dL [facility] Creatinine 4.50(H) 0.80 - 1.50 mg/dL [facility] Sodium 133(L) 135 - 145 mmol/L [facility] Potassium 4.3 3.5 - 5.0 mmol/L [facility] Comment: Please note: ??Patients with WBC >100,000 may have falsely elevated Potassium levels. ??For accurate Potassium quantification in these patients send serum separator tube (gold top) for subsequent determinations. ??Contact the Clinical Chemistry Laboratory if there are any questions. Chloride 91(L) 98 - 107 mmol/L [facility] Carbon Dioxide 31 22 - 31 mmol/L [facility] Anion Gap 11 5 - 15 mmol/L [facility] Calcium 8.5 8.5 - 10.5 mg/dL [facility] Est Glomerular Filtration Rate 13(L) >=60 mL/min/1. 73 m?? [facility] Comment: The eGFR was calculated using the CKD-EPI equation. As with all creatinine based estimates of kidney function, eGFR values calculated with the CKD-EPI equation are not accurate in patients with acute kidney failure, extremes of body mass or the acutely ill. [email or web address] eGFR 15(L) >=60 mL/min/1. 73 m?? [facility] Comment: The eGFR was calculated using the CKD-EPI equation. As with all creatinine based estimates of kidney function, eGFR values calculated with the CKD-EPI equation are not accurate in patients with acute kidney failure, extremes of body mass or the acutely ill. [email or web address] Blood specimen (specimen) 10/21/2018 6:42 AM EDT 10/21/2018 6:51 AM EDT Narrative Resulting Agency Comment Spec In Lab Ahsan Guevara MD CHEMISTRY ORDERABLES [facility] [place] [address] * POCT Glucose (10/21/2018 4:15 AM EDT) Glucose, POC 115 65 - 199 mg/dL [facility] Comment: Supplemental ranges: <140 mg/dL before meals <180 mg/dL all other times of the day Blood specimen (specimen) 10/21/2018 4:15 AM EDT 10/21/2018 4:15 AM EDT Ahsan Guevara MD POINT OF CARE TEST O RDERAROSIE [facility] [place] [address] * POCT Glucose (10/20/2018 11:31 PM EDT) Glucose, POC 88 65 - 199 mg/dL [facility] Comment: Supplemental ranges: <140 mg/dL before meals <180 mg/dL all other times of the day Blood specimen (specimen) 10/20/2018 11:31 PM EDT 10/20/2018 11:31 PM EDT Ahsan Guevara MD POINT OF CARE TEST O FREDERICKERAROSIE [facility] [place] [address] * POCT Glucose (10/20/2018 7:53 PM EDT) Glucose, POC 170 65 - 199 mg/dL [facility] Comment: Supplemental ranges: <140 mg/dL before meals <180 mg/dL all other times of the day Blood specimen (specimen) 10/20/2018 7:53 PM EDT 10/20/2018 7:53 PM EDT Ahsan Guevara MD POINT OF CARE TEST O RDERAROSIE [facility] [place] [address] * (ABNORMAL) Differential, Automated (10/20/2018 7:12 PM EDT) Neutrophil % 73.3 % [facility] Neutrophil Absolute 4.76 1.70 - 6.10 x10(3)/mc L [facility] Lymph % 13.9 % [facility] Lymphocytes Abs 0.9 0.9 - 3.2 x10(3)/ L [facility] Monocyte % 8.0 % [facility] Monocyte Abs 0.5 0.3 - 0.9 x10(3)/[facility] Eos % 2.6 % [facility] Eosinophils Abs 0.2 0.0 - 0.4 x10(3)/[facility] Basophil % 0.8 % [facility] Baso Absolute 0.0 0.0 - 0.1 x10(3)/[facility] Immature Gran % 1.40 % [facility] Comment: Immature granulocytes(IG's)percentage and absolute count will include metamyelocytes, myelocytes, and promyelocytes. Blood smears from CBCs yielding IG's will be scanned manually for concordance. If this scan disagrees with the automated IG or if promyelocytes are noted, a manual differential will be performed. Immature Gran Absolute 0.09(H) 0.00 - 0.04 x10(3)/ L [facility] Blood specimen (specimen) 10/20/2018 7:12 PM EDT 10/20/2018 7:40 PM EDT Narrative Resulting Agency Comment Spec In Lab Cari Burkett MD HEMATOLOGY ORDERABLE S [facility] [place] [address] * (ABNORMAL) Hemogram (10/20/2018 7:12 PM EDT) White Blood Cell 6.5 4.0 - 9.5 x10(3)/mc L [facility] Red Blood Cell 3.15(L) 4.58 - 5.54 x10(6)/[facility] Hemoglobin 9.8(L) 13.7 - 16.5 gm/dL [facility] Hematocrit 31.0(L) 40.5 - 48.5 % [facility] Mean Cell Volume 98.4(H) 82.9 - 93.1 [facility] Mean Cell Hemoglobin 31.1 27.5 - 32.1 pg [facility] Mean Cell Hemoglobin Concentration 31.6(L) 32.0 - 35.7 gm/dL [facility] Platelet 259 145 - 357 x10(3)/[facility] RDW Standard Deviation 48.1(H) 36.0 - 45.0 [facility] RDW coefficient of variation 13.4 11.4 - 13.8 % [facility] Mean Platelet Volume 9.2 7.6 - 12.9 [facility] NRBC% auto 0.0 % [facility] NRBC Absolute 0.000 0.000 - 0.000 x10(3)/[facility] Blood specimen (specimen) 10/20/2018 7:12 PM EDT 10/20/2018 7:40 PM EDT Narrative Resulting Agency Comment Spec In Lab Cari Burkett MD HEMATOLOGY ORDERABLE S [facility] [place] [address] * (ABNORMAL) Basic Metabolic Panel (non-fasting) (10/20/2018 7:12 PM EDT) Glucose 196 65 - 199 mg/dL [facility] Comment:Diabetes: >=200 mg/d L plus symptoms Blood Urea Nitrogen 35(H) 10 - 20 mg/dL [facility] Comment:result rechecked-RG Creatinine 3.81(H) 0.80 - 1.50 mg/dL [facility] Comment:result rechecked-RG Sodium 132(L) 135 - 145 mmol/L [facility] Potassium 4.4 3.5 - 5.0 mmol/L [facility] Comment: Please note: ??Patients with WBC >100,000 may have falsely elevated Potassium levels. ??For accurate Potassium quantification in these patients send serum separator tube (gold top) for subsequent determinations. ??Contact the Clinical Chemistry Laboratory if there are any questions. Chloride 89(L) 98 - 107 mmol/L [facility] Carbon Dioxide 32(H) 22 - 31 mmol/L [facility] Anion Gap 11 5 - 15 mmol/L [facility] Calcium 8.6 8.5 - 10.5 mg/dL [facility] Est Glomerular Filtration Rate 16(L) >=60 mL/min/1. 73 m?? [facility] Comment: The eGFR was calculated using the CKD-EPI equation. As with all creatinine based estimates of kidney function, eGFR values calculated with the CKD-EPI equation are not accurate in patients with acute kidney failure, extremes of body mass or the acutely ill. [email or web address] eGFR 19(L) >=60 mL/min/1. 73 m?? [facility] Comment: The eGFR was calculated using the CKD-EPI equation. As with all creatinine based estimates of kidney function, eGFR values calculated with the CKD-EPI equation are not accurate in patients with acute kidney failure, extremes of body mass or the acutely ill. [email or web address] [employer] Blood specimen (specimen) 10/20/2018 7:12 PM EDT 10/20/2018 7:40 PM EDT Narrative Resulting Agency Comment Spec In Lab Ahsan Guevara MD CHEMISTRY ORDERABLES [facility] [place] [address] * POCT Glucose (10/20/2018 4:16 PM EDT) Glucose, POC 152 65 - 199 mg/dL [facility] Comment: Supplemental ranges: <140 mg/dL before meals <180 mg/dL all other times of the day Blood specimen (specimen) 10/20/2018 4:16 PM EDT 10/20/2018 4:16 PM EDT Ahsan Guevara MD POINT OF CARE TEST O ANTONETTE [facility] [place] [address] * CT Lower Extremity w Contrast Left (10/20/2018 4:03 PM EDT) Anatomical Region Laterality Modality Hip, Leg, Knee, Thigh, Ankle, Foot Left Computed Tomography Impressions 10/20/2018 4:37 PM EDT 1. ??No soft tissue air. No well-circumscribed fluid collection/abscess. 2. ??Nonspecific skin thickening and increased attenuation of subcutaneous fat in entire left lower extremity, most pronounced in the lateral soft tissues and in both medial and lateral soft tissues of the calf. Finding is nonspecific and may represent any combinations of bland edema or cellulitis. 3. ??Several mildly enlarged left inguinal lymph nodes. Thank you for letting us participate in the care of this patient. For questions regarding this report, please contact the number below. ? Narrative 10/20/2018 4:37 PM EDT EXAMINATION: CT LOWER EXTREMITY W CONTRAST LEFT CLINICAL HISTORY: dialysis patient with LLE cellulitis going from groin to foot. Lookinf for abscess or drainable fluid collection, entered by ordering service TECHNIQUE: 0.63 mm non-contrast axial CT images of the left hip to toe were acquired. Sagittal and coronal reformats were created. COMPARISON: None FINDINGS: OSSEOUS STRUCTURES: No fracture, periostitis or bone destruction. JOINTS: Hip joint-normal. Knee joint-small effusion. Ankle joint-no effusion. TENDONS: No displaced tendons MUSCLES: Normal appearance SOFT TISSUES: No soft tissue air. Nonspecific subcutaneous edema in the lateral soft tissues of the thigh, knee and foot. The calf, there is skin thickening and circumferential increased density of subcutaneous fat. No well-circumscribed fluid collection. Lymph nodes-a few left inguinal lymph nodes. The largest is 16 mm in short axis. Most contain central fatty cleft. Procedure Note Debra Jasmine MD - 10/20/2018 EXAMINATION: CT LOWER EXTREMITY W CONTRAST LEFT CLINICAL HISTORY: dialysis patient with LLE cellulitis going from groin tofoot. Lookinf for abscess or drainable fluid collection, entered by orderingservice TECHNIQUE: 0.63 mm non-contrast axial CT images of the left hip to toewere acquired. Sagittal and coronal reformats were created. COMPARISON: None FINDINGS: OSSEOUS STRUCTURES: No fracture, periostitis or bone destruction. JOINTS: Hip joint-normal. Knee joint-small effusion. Ankle joint-no effusion. TENDONS: No displaced tendons MUSCLES: Normal appearance SOFT TISSUES: No soft tissue air. Nonspecific subcutaneous edema in the lateral softtissues of the thigh, knee and foot. The calf, there is skin thickening and circumferential increased density of subcutaneous fat. No well-circumscribed fluid collection. Lymph nodes-a few left inguinal lymph nodes. The largest is 16 mm in shortaxis. Most contain central fatty cleft. IMPRESSION 1. No soft tissue air. No well-circumscribed fluid collection/abscess. 2. Nonspecific skin thickening and increased attenuation of subcutaneousfat in entire left lower extremity, most pronounced in the lateral soft tissuesand in both medial and lateral soft tissues of the calf. Finding is nonspecificand may represent any combinations of bland edema or cellulitis. 3. Several mildly enlarged left inguinal lymph nodes. Thank you for letting us participate in the care of this patient. Forquestions regarding this report, please contact the number below. Sinan Patel MD IMG CT ORDERABLES * (ABNORMAL) POCT Glucose (10/20/2018 11:37 AM EDT) Glucose, POC 237(H) 65 - 199 mg/dL [facility] Comment: Supplemental ranges: <140 mg/dL before meals <180 mg/dL all other times of the day Blood specimen (specimen) 10/20/2018 11:37 AM EDT 10/20/2018 11:37 AM EDT Ahsan Guevara MD POINT OF CARE TEST O RDERABLES Performing Organization Address [facility]/ZIP Co de Phone Number [facility] [place] [address] * (ABNORMAL) POCT Glucose (10/20/2018 9:14 AM EDT) Glucose, POC 236(H) 65 - 199 mg/dL [facility] Comment: Supplemental ranges: <140 mg/dL before meals <180 mg/dL all other times of the day Blood specimen (specimen) 10/20/2018 9:14 AM EDT 10/20/2018 9:14 AM EDT Bessy Anaya MD POINT OF CARE TE ST ORDERABLES Performing Organization Address City/[facility]/ZIP Co de Phone Number [facility] [place] [address] * POCT Glucose (10/20/2018 6:54 AM EDT) Glucose, POC 175 65 - 199 mg/dL [facility] Comment: Supplemental ranges: <140 mg/dL before meals <180 mg/dL all other times of the day Blood specimen (specimen) 10/20/2018 6:54 AM EDT 10/20/2018 6:54 AM EDT Bessy Anaya MD POINT OF CARE TE ST ORDERABLES Performing Organization Address City/[facility]/ZIP Co de Phone Number [facility] [place] [address] * POCT Glucose (10/20/2018 3:26 AM EDT) Glucose, POC 195 65 - 199 mg/dL [facility] Comment: Supplemental ranges: <140 mg/dL before meals <180 mg/dL all other times of the day Blood specimen (specimen) 10/20/2018 3:26 AM EDT 10/20/2018 3:26 AM EDT Bessy Anaya MD POINT OF CARE TE ST ORDERABLES Performing Organization Address [facility] Co de Phone Number [facility] [place] [address] * (ABNORMAL) POCT Glucose (10/19/2018 11:42 PM EDT) Glucose, POC 217(H) 65 - 199 mg/dL [facility] Comment: Supplemental ranges: <140 mg/dL before meals <180 mg/dL all other times of the day Blood specimen (specimen) 10/19/2018 11:42 PM EDT 10/19/2018 11:42 PM EDT Bessy Anaya MD POINT OF CARE TE ST ORDERABLES Performing Organization Address City/[facility] Co de Phone Number [facility] [place] [address] * (ABNORMAL) POCT Glucose (10/19/2018 9:38 PM EDT) Glucose, POC 241(H) 65 - 199 mg/dL [facility] Comment: Supplemental ranges: <140 mg/dL before meals <180 mg/dL all other times of the day Blood specimen (specimen) 10/19/2018 9:38 PM EDT 10/19/2018 9:38 PM EDT Bessy Anaya MD POINT OF CARE TE ST ORDERABLES Performing Organization Address [facility] Co de Phone Number [facility] [place] [address] * POCT Glucose (10/19/2018 8:21 PM EDT) Glucose, POC 181 65 - 199 mg/dL [facility] Comment: Supplemental ranges: <140 mg/dL before meals <180 mg/dL all other times of the day Blood specimen (specimen) 10/19/2018 8:21 PM EDT 10/19/2018 8:21 PM EDT Bessy Anaya MD POINT OF CARE TE ST ORDERABLES Performing Organization Address [facility] de Phone Number [facility] [place] [address] * POCT Glucose (10/19/2018 6:40 PM EDT) Glucose, POC 165 65 - 199 mg/dL [facility] Comment: Supplemental ranges: <140 mg/dL before meals <180 mg/dL all other times of the day Blood specimen (specimen) 10/19/2018 6:40 PM EDT 10/19/2018 6:[address] Evgeny Paez MD POINT OF CARE TEST O RDERABLES Performing Organization Address [facility] Co de Phone Number [facility] [place] [address] * EKG 12 Lead (10/19/2018 5:02 PM EDT) Ventricular rate 97 BPM MUSE SYSTEM Atrial Rate 97 BPM MUSE SYSTEM P-R Interval 184 ms MUSE SYSTEM QRS Duration 92 ms MUSE SYSTEM Q-T Interval 370 ms MUSE SYSTEM QTC Calculated (Bezet) 469 ms MUSE SYSTEM Calculated P [place] 61 degrees MUSE SYSTEM Calculated R [place] 50 degrees MUSE SYSTEM Calculated T [place] 73 degrees MUSE SYSTEM INTERPRETATION Sinus rhythm with frequent Premature ventricular complexes ??unifocal Abnormal ECG No previous ECGs available Confirmed by MD MORGAN BRUCE ([id number]) on 10/19/2018 6:04:26 PM MUSE SYSTEM 10/19/2018 5:02 PM EDT 10/19/2018 6:04 PM EDT Sinan Patel MD ECG ORDERABLES MUSE SYSTEM * Duplex for DVT, Leg, Unilat (10/19/2018 3:24 PM EDT) VB Text Report Department: Vascular Surgery Lab Patient: [id number] (SINDI RUDOLPH) CPT: 32359 ICD10: M79.605;R60.0;L03. 116 Referring Physician: SINAN PATEL ?? Phone: Indications: Redness, swelling, and pain left lower extremity; ? DVT ICD10 Diagnosis Code: M79.605, R60.0, L03.116 Findings: LEFT: Patent common femoral vein and popliteal vein with spontaneous, respirophasic Doppler waveforms that respond normally to augmentation maneuvers. The common femoral vein, saphenofemoral junction, femoral vein through the thigh and popliteal vein are fully compressible. Patent posterior tibial veins of the distal calf with no evidence of thrombus. Unable to visualize the posterior tibial veins of the proximal to mid calf and the peroneal veins throughout the calf; cannot exclude thrombus. Interpretation: LEFT: No evidence of common femoral, femoral, or popliteal DVT. Patent PTV's of the distal calf with no evidence of thrombus. Unable to visualize the posterior tibial veins of the proximal to mid calf and the peroneal veins throughout the calf; cannot exclude thrombus. Comparison: ?? No previous study in our vascular lab database for comparison. Electronically Signed by: ZAN WARD on 2018-10-24 11:53:49 AM [facility] VB Text Report End of Report [facility] 10/19/2018 3:24 PM EDT Sinan Patel MD VASCULAR ORDERABLES [facility] * L-Lactate2 Whole Blood (10/19/2018 3:23 PM EDT) [facility] Lactate WB 1.6 0.5 - 2.2 mmol/L [facility] Blood specimen (specimen) 10/19/2018 3:23 PM EDT 10/19/2018 3:[address] Evgeny Paez MD CHEMISTRY ORDERABLES Performing Organization Address City/[facility]/ZIP Co de Phone Number [facility] [place] [address] * (ABNORMAL) Hepatic Function Panel (10/19/2018 3:20 PM EDT) [facility] Protein, Total 8.5(H) 6.1 - 8.0 gm/dL [facility] Albumin 4.1 3.2 - 5.2 gm/dL [facility] Aspartate Aminotransferase 69(H) 0 - 39 unit/L [facility] Alanine Aminotransferase 33 0 - 55 unit/L [facility] Alkaline Phosphatase 164(H) 40 - 120 unit/L [facility] Bilirubin, Total Not Perf 0.2 - 1.3 mg/dL [facility] Comment:Analyte stability ex ceeded; test not performed. Bilirubin, Direct Not Perf 0.0 - 0.3 mg/dL [facility] Comment:Analyte stability ex ceeded; test not performed. Blood specimen (specimen) Venous Draw / Unknown 10/19/2018 3:20 PM EDT 10/19/2018 4:29 PM EDT Narrative Resulting Agency Comment Spec In Lab Cari Burkett MD CHEMISTRY ORDERABLES Performing Organization Address [facility] Co de Phone Number [facility] [place] [address] * Blue Tube HOLD (10/19/2018 3:20 PM EDT) [facility] Blue Hold Sample in lab. [facility] Blood specimen (specimen) Venous Draw / Unknown 10/19/2018 3:20 PM EDT 10/19/2018 3:33 PM EDT Ahsan EDGAR HEMATOLOGY ORDERABLE S [facility] [place] [address] * (ABNORMAL) Differential, Automated (10/19/2018 3:20 PM EDT) Neutrophil % 71.8 % [facility] Neutrophil Absolute 4.78 1.70 - 6.10 x10(3)/[facility] LABORATORY Lymph % 13.1 % [facility] Lymphocytes Abs 0.9 0.9 - 3.2 x10(3)/[facility] LABORATORY Monocyte % 7.5 % [facility] Monocyte Abs 0.5 0.3 - 0.9 x10(3)/[facility] LABORATORY Eos % 3.0 % [facility] Eosinophils Abs 0.2 0.0 - 0.4 x10(3)/[facility]ATORY Basophil % 0.8 % [facility] Baso Absolute 0.0 0.0 - 0.1 x10(3)/[facility] LABORATORY Immature Gran % 3.80 % [facility] Comment: Immature granulocytes(IG's)percentage and absolute count will include metamyelocytes, myelocytes, and promyelocytes. Blood smears from CBCs yielding IG's will be scanned manually for concordance. If this scan disagrees with the automated IG or if promyelocytes are noted, a manual differential will be performed. Immature Gran Absolute 0.25(H) 0.00 - 0.04 x10(3)/ L [facility] Blood specimen (specimen) 10/19/2018 3:20 PM EDT 10/19/2018 3:32 PM EDT Narrative Resulting Agency Comment Spec In Lab Ahsan EDGAR HEMATOLOGY ORDERABLE S Performing Organization Address City/[facility]/ZIP Co de Phone Number [facility] [place] [address] * (ABNORMAL) Hemogram (10/19/2018 3:20 PM EDT) White Blood Cell 6.6 4.0 - 9.5 x10(3)/mc L [facility] Red Blood Cell 3.50(L) 4.58 - 5.54 x10(6)/mc L [facility] Hemoglobin 11.1(L) 13.7 - 16.5 gm/dL [facility] Hematocrit 34.3(L) 40.5 - 48.5 % [facility] Mean Cell Volume 98.0(H) 82.9 - 93.1 fL [facility] Mean Cell Hemoglobin 31.7 27.5 - 32.1 pg [facility] Mean Cell Hemoglobin Concentration 32.4 32.0 - 35.7 gm/dL [facility] Platelet 277 145 - 357 x10(3)/mc L [facility] RDW Standard Deviation 50.4(H) 36.0 - 45.0 fL [facility] RDW coefficient of variation 14.1(H) 11.4 - 13.8 % [facility] Mean Platelet Volume 9.3 7.6 - 12.9 fL [facility] NRBC% auto 0.0 % [facility] NRBC Absolute 0.000 0.000 - 0.000 x10(3)/mc L [facility] Blood specimen (specimen) 10/19/2018 3:20 PM EDT 10/19/2018 3:32 PM EDT Narrative Resulting Agency Comment Spec In Lab Ahsan EDGAR HEMATOLOGY ORDERABLE S [facility] [place] [address] * (ABNORMAL) Basic Metabolic Panel (non-fasting) (10/19/2018 3:20 PM EDT) Glucose 216(H) 65 - 199 mg/dL [facility] Comment:Diabetes: >=200 mg/d L plus symptoms Blood Urea Nitrogen 17 10 - 20 mg/dL [facility] Creatinine 2.78(H) 0.80 - 1.50 mg/dL [facility] Sodium 139 135 - 145 mmol/L [facility] Potassium 3.6 3.5 - 5.0 mmol/L [facility] Comment: Please note: ??Patients with WBC >100,000 may have falsely elevated Potassium levels. ??For accurate Potassium quantification in these patients send serum separator tube (gold top) for subsequent determinations. ??Contact the Clinical Chemistry Laboratory if there are any questions. Chloride 91(L) 98 - 107 mmol/L [facility] Carbon Dioxide 36(H) 22 - 31 mmol/L [facility] Anion Gap 12 5 - 15 mmol/L [facility] Calcium 9.4 8.5 - 10.5 mg/dL [facility] Est Glomerular Filtration Rate 24(L) >=60 mL/min/1. 73 m?? [facility] Comment: The eGFR was calculated using the CKD-EPI equation. As with all creatinine based estimates of kidney function, eGFR values calculated with the CKD-EPI equation are not accurate in patients with acute kidney failure, extremes of body mass or the acutely ill. [email or web address]/[facility]ENEnk[facility] eGFR 28(L) >=60 mL/min/1. 73 m?? [facility] Comment: The eGFR was calculated using the CKD-EPI equation. As with all creatinine based estimates of kidney function, eGFR values calculated with the CKD-EPI equation are not accurate in patients with acute kidney failure, extremes of body mass or the acutely ill. [email or web address] Blood specimen (specimen) 10/19/2018 3:20 PM EDT 10/19/2018 3:32 PM EDT Narrative Resulting Agency Comment Spec In Lab Sinan Patel MD CHEMISTRY ORDERABLES [facility] [address] [place] [address] documented in this encounter Visit Diagnoses Diagnosis Cellulitis of leg, left Cellulitis and abscess of leg, except foot Cellulitis Cellulitis and abscess of unspecified site documented in this encounter Admitting Diagnoses Diagnosis Cellulitis Cellulitis and abscess of unspecified site documented in this encounter Administered Medications Inactive Administered Medications - up to 3 most recent administrations Medication Order MAR Action Action Date Dose Rate Site acetaminophen (TYLENOL) tablet 650 mg 650 mg, Oral, EVERY 8 HOURS PRN, Starting on Tue10/19/18 at 2150, Until Tue10/20/18 at 1634, Pain, Fever, Headaches, Maximum dose of acetaminophen is 4000 mg from all sources in 24 hours., Routine Given 10/20/2018 10:59 AM EDT 650 mg Given 10/19/2018 10:16 PM EDT 650 mg acetaminophen (TYLENOL) tablet 650 mg 650 mg, Oral, EVERY 6 HOURS SCHEDULED, First dose (after last modification) on Tue10/20/18 at 1800, Until Discontinued, Maximum dose of acetaminophen is 4000 mg from all sources in 24 hours., Routine Given 10/22/2018 11:38 AM EDT 650 mg Given 10/22/2018 5:00 AM EDT 650 mg Given 10/22/2018 12:00 AM EDT 650 mg ampicillin-sulbactam (UNASYN) 3 g vial attach to sodium chloride 0.9% 100 mL Mini-Bag Plus 3 g, Intravenous, EVERY 12 HOURS, First dose on Tue10/19/18 at 2100, Until Discontinued, Administer over 30 Minutes, Warning Vesicant/Irritant Medication , Indication for (Active or Suspected): Skin/Skin Structure New Bag 10/22/2018 8:29 AM EDT 3 g 200 mL/hr New Bag 10/21/2018 8:56 PM EDT 3 g 200 mL/hr New Bag 10/21/2018 8:26 AM EDT 3 g 200 mL/hr aspirin tablet 325 mg 325 mg, Oral, DAILY, First dose on Tue10/20/18 at 0900, Until Discontinued, Routine Given 10/22/2018 8:27 AM EDT 325 mg Given 10/21/2018 8:27 AM EDT 325 mg Given 10/20/2018 9:36 AM EDT 325 mg atorvastatin (LIPITOR) tablet 10 mg 10 mg, Oral, EVERY EVENING, First dose on Tue10/19/18 at 2030, Until Discontinued Given 10/21/2018 5:36 PM EDT 10 mg Given 10/20/2018 4:25 PM EDT 10 mg Given 10/19/2018 9:25 PM EDT 10 mg B Complex-Vitamin C-Folic Acid (NEPHROCAP) 1 mg capsule 1 capsule 1 capsule, Oral, DAILY, First dose on Tue10/20/18 at 0900, Until Discontinued, Routine Given 10/22/2018 8:28 AM EDT 1 capsule Given 10/21/2018 8:26 AM EDT 1 capsule Given 10/20/2018 9:38 AM EDT 1 capsule bumetanide (BUMEX) tablet 2 mg 2 mg, Oral, 2 TIMES DAILY, First dose on Tue10/19/18 at 2100, Until Discontinued, Routine Given 10/22/2018 8:27 AM EDT 2 mg Given 10/21/2018 8:56 PM EDT 2 mg Given 10/21/2018 8:27 AM EDT 2 mg camphor-menthol (SARNA) lotion 1 each 1 each, Topical (Top), 3 TIMES DAILY PRN, Itching, left LE, Starting on 10/21/18 at 1845, Until 10/22/18 at 1626 dextrose 50% intravenous solution 25-50 mL 25-50 mL (12.5-25 g), Intravenous, EVERY 1 HOUR PRN, Starting on Barbara 10/19/18 at 2009, Until 10/22/18 at 1626, Low blood sugar, For BG 50-70 mg/dL: Oral treatment preferred:?? If able to drink, give 120 mL Juice or Regular (not diet) soda OR If NPO, give 15 gram glucose 40% oral gel massaged into buccal mucosa OR if unconscious or uncooperative, give 12.5 gram (25 mL) Dextrose 50% IV OR, if no IV access, give 1 mg Glucagon IM. For BG less than 50 mg/dL: Oral treatment preferred:?? If able to drink, give 240 mL Juice or Regular (not diet) soda OR If NPO, give 30 gram glucose 40% oral gel massaged in buccal mucosa OR if unconscious or uncooperative, give 25 gram (50 mL) Dextrose 50% IV OR, if no IV access, give 1 mg Glucagon IM. Recheck BG in 30 minutes. May repeat juice, gel, dextrose or glucagon once per episode. To avoid extravasation, push Dextrose 50% SLOWLY (3 mL over 1 minute) in a patent, running IV, preferably a central line. For persistent hypoglycemia, consider longer-acting treatment for the duration of the active insulin., Routine diphenhydrAMINE (BENADRYL) capsule 25 mg 25 mg, Oral, ONCE, 1 dose, On 10/21/18 at 2215, For itchy new rash between scapula to neck- not relieved by sarna lotion, Routine Given 10/21/2018 10:15 PM EDT 25 mg epoetin babs (EPOGEN;PROCRIT) injection 12,000 Units 12,000 Units, Intravenous, ONCE IN DIALYSIS PRN, 1 dose, Starting on 10/21/18 at 0927, Until 10/21/18 at 1306, Other, Dialysis (Intra-Procedure), Routine, What is the indication of use? End Stage Renal Disease (ESRD) on dialysis Given 10/21/2018 1:06 PM EDT 12,000 Units gabapentin (NEURONTIN) capsule 300 mg 300 mg, Oral, 3 TIMES DAILY, First dose on Barbara 10/19/18 at 2100, Until Discontinued, Routine Given 10/22/2018 8:28 AM EDT 300 mg Given 10/21/2018 8:56 PM EDT 300 mg Given 10/21/2018 3:56 PM EDT 300 mg glucagon (human recombinant) injection SolR 1 mg 1 mg, Intramuscular, EVERY 1 HOUR PRN, Starting on Barbara 10/19/18 at 2009, Until 10/22/18 at 1626, Low blood sugar, For BG 50-70 mg/dL: Oral treatment preferred:?? If able to drink, give 120 mL Juice or Regular (not diet) soda OR If NPO, give 15 gram glucose 40% oral gel massaged into buccal mucosa OR if unconscious or uncooperative, give 12.5 gram (25 mL) Dextrose 50% IV OR, if no IV access, give 1 mg Glucagon IM. For BG less than 50 mg/dL: Oral treatment preferred:?? If able to drink, give 240 mL Juice or Regular (not diet) soda OR If NPO, give 30 gram glucose 40% oral gel massaged in buccal mucosa OR if unconscious or uncooperative, give 25 gram (50 mL) Dextrose 50% IV OR, if no IV access, give 1 mg Glucagon IM. Recheck BG in 30 minutes. May repeat juice, gel, dextrose or glucagon once per episode. To avoid extravasation, push Dextrose 50% SLOWLY (3 mL over 1 minute) in a patent, running IV, preferably a central line. For persistent hypoglycemia, consider longer-acting treatment for the duration of the active insulin., Routine glucose (GLUTOSE) 40% oral gel 15-30 g, Buccal, EVERY 30 MIN PRN, Starting on Barbara 10/19/18 at 2009, Until 10/22/18 at 1626, Low blood sugar, For BG 50-70 mg/dL: Oral treatment preferred:?? If able to drink, give 120 mL Juice or Regular (not diet) soda OR If NPO, give 15 gram glucose 40% oral gel massaged into buccal mucosa OR if unconscious or uncooperative, give 12.5 gram (25 mL) Dextrose 50% IV OR, if no IV access, give 1 mg Glucagon IM. For BG less than 50 mg/dL: Oral treatment preferred:?? If able to drink, give 240 mL Juice or Regular (not diet) soda OR If NPO, give 30 gram glucose 40% oral gel massaged in buccal mucosa OR if unconscious or uncooperative, give 25 gram (50 mL) Dextrose 50% IV OR, if no IV access, give 1 mg Glucagon IM. Recheck BG in 30 minutes. May repeat juice, gel, dextrose or glucagon once per episode. To avoid extravasation, push Dextrose 50% SLOWLY (3 mL over 1 minute) in a patent, running IV, preferably a central line. For persistent hypoglycemia, consider longer-acting treatment for the duration of the active insulin. 1 tube contains 15 grams of glucose (net weight of tube = 37.5 grams., Routine heparin (porcine) injection 3,000 Units 3,000 Units, Intravenous, ONCE IN DIALYSIS, 1 dose, On 10/21/18 at 0945, For use in Dialysis only with direct provider supervision and verbal order., Dialysis (Intra-Procedure), Routine Given 10/21/2018 11:05 AM EDT 3,000 Units heparin (Porcine) subcutaneous injection 5,000 Units 5,000 Units, Subcutaneous, EVERY 12 HOURS SCHEDULED (2 times per day), First dose on Tue10/19/18 at 2100, Until Discontinued, Routine Given 10/22/2018 8:27 AM EDT 5,000 Units Given 10/21/2018 8:56 PM EDT 5,000 Units Given 10/21/2018 8:26 AM EDT 5,000 Units insulin glargine VIAL injection 20 Units 20 Units, Subcutaneous, EVERY 24 HOURS, First dose on Tue10/20/18 at 1300, Until Discontinued, Routine Given 10/21/2018 8:56 PM EDT 20 Units Given 10/20/2018 8:12 PM EDT 20 Units insulin lispro (HumaLOG) VIAL injection 0-10 Units 0-10 Units, Subcutaneous, 3 TIMES DAILY WITH MEALS, First dose on Tue10/20/18 at 1200, Until Discontinued, [employer] Give 1 unit for every 8 grams carbohydrate. Hold if not eating, Routine Given 10/22/2018 1:00 PM EDT 5 Units Given 10/22/2018 8:27 AM EDT 7 Units Given 10/21/2018 5:35 PM EDT 4 Units insulin lispro (HumaLOG) VIAL injection 2-8 Units 2-8 Units, Subcutaneous, EVERY 6 HOURS, First dose on Tue10/19/18 at 2030, Until Discontinued, CORRECTION BOLUS Moderate BG 140 - 160 Give 2 units BG 161 - 200 Give 4 units BG 201 - 240 Give 6 units BG greater than 240, give 8 units and recheck BG in 2 hours.If BG less than 240 after two hours, give no insulin and resume prior schedule. If BG remains greater than 240, repeat 8 units (no more than three times) & call for new basal insulin orders. DO NOT hold if NPO, unless specifically told to do so., Routine Given 10/20/2018 9:30 AM EDT 6 Units Given 10/20/2018 3:29 AM EDT 4 Units Given 10/19/2018 9:39 PM EDT 8 Units insulin lispro (HumaLOG) VIAL injection 2-8 Units 2-8 Units, Subcutaneous, EVERY 4 HOURS SCHEDULED, First dose (after last modification) on Tue10/20/18 at 1200, Until Discontinued, CORRECTION BOLUS Moderate BG 140 - 160 Give 2 units BG 161 - 200 Give 4 units BG 201 - 240 Give 6 units BG greater than 240, give 8 units and recheck BG in 2 hours.If BG less than 240 after two hours, give no insulin and resume prior schedule. If BG remains greater than 240, repeat 8 units (no more than three times) & call for new basal insulin orders. DO NOT hold if NPO, unless specifically told to do so., Routine Given 10/21/2018 8:15 PM EDT 6 Units Given 10/20/2018 8:12 PM EDT 4 Units Given 10/20/2018 4:24 PM EDT 2 Units iohexol (OMNIPAQUE) 350 mg/mL solution 0-200 mL 0-200 mL, Intravenous, ONCE PRN, 1 dose, Starting on Tue10/20/18 at 1604, Until Tue10/20/18 at 1604, Per Protocol, Warning Vesicant/Irritant Medication , Radiology Contrast, Routine Given 10/20/2018 4:04 PM EDT 110 mLs lidocaine (XYLOCAINE) 10 mg/mL (1 %) injection 3 mg 3 mg (0.3 mL), Intradermal, ONCE, 1 dose, On 10/21/18 at 1130, For use in dialysis only, Routine Given 10/21/2018 11:00 AM EDT 3 mg losartan (COZAAR) tablet 50 mg 50 mg, Oral, DAILY, First dose on Tue10/20/18 at 0900, Until Discontinued, Routine Given 10/22/2018 8:28 AM EDT 50 mg Given 10/21/2018 8:27 AM EDT 50 mg Given 10/20/2018 9:37 AM EDT 50 mg melatonin tablet 3 mg 3 mg, Oral, ONCE, 1 dose, On Tue10/19/18 at 2315, Routine Given 10/19/2018 11:01 PM EDT 3 mg melatonin tablet 3 mg 3 mg, Oral, ONCE, 1 dose, On Tue10/20/18 at 2300, Routine Given 10/20/2018 10:53 PM EDT 3 mg sertraline (ZOLOFT) tablet 25 mg 25 mg, Oral, DAILY, First dose on Tue10/20/18 at 0900, Until Discontinued, Routine Given 10/22/2018 8:28 AM EDT 25 mg Given 10/21/2018 8:27 AM EDT 25 mg Given 10/20/2018 9:37 AM EDT 25 mg sodium chloride 0.9 % (flush) flush 5 mL 5 mL, Intravenous, 2 TIMES DAILY, First dose on [place] 10/19/18 at 2100, Until Discontinued, Routine Given 10/22/2018 8:29 AM EDT 10 mLs Given 10/21/2018 8:56 PM EDT 5 mLs Given 10/21/2018 8:28 AM EDT 10 mLs tamsulosin (FLOMAX) ER capsule 0.4 mg 0.4 mg, Oral, DAILY, First dose on Tue10/20/18 at 0900, Until Discontinued, DO NOT CRUSH OR OPEN, Routine Given 10/22/2018 8:28 AM EDT 0.4 mg Given 10/21/2018 8:27 AM EDT 0.4 mg Given 10/20/2018 9:37 AM EDT 0.4 mg traMADol (ULTRAM) tablet 50-100 mg 50-100 mg, Oral, EVERY 6 HOURS PRN, Starting on Tue10/20/18 at 1630, Until 10/22/18 at 1626, Pain, Give 50 mg for mild to moderate pain (1-6). Give 100 mg for severe pain (7-10) If pain not relived after 60 minutes by a dose of 50 mg then may repeat 50 mg ONCE. Maximum of 400 mg/day., Routine Given 10/21/2018 8:58 PM EDT 100 mg Given 10/21/2018 8:27 AM EDT 100 mg Given 10/20/2018 10:36 PM EDT 50 mg documented in this encounter Active and Recently Administered Medications Times are shown in EDT. Scheduled Medication Order 10/20/2018 10/21/2018 10/22/2018 acetaminophen (TYLENOL) tablet 650 mg 650 mg, Oral, EVERY 6 HOURS SCHEDULED, First dose (after last modification) on Tue10/20/18 at 1800, Until Discontinued, Maximum dose of acetaminophen is 4000 mg from all sources in 24 hours., Routine 1743 (Given - Provider: Chantale Cazares RN)2340 (Not Given - Provider: Julianna Davila RN - Reason: Patient/family refused) 0706 (Given - Provider: Julianna Davila RN)1200 (Not Given - Provider: Chantale Cazares RN - Reason: See comment - Comment: Pt in HD, will give 1800 Tylenol)1736 (Given - Provider: Chantale Cazares RN) 0000 (Given - Provider: Ivelisse Tovar RN)0500 (Given - Provider: Ivelisse Tovar RN)1138 (Given - Provider: Chantale Cazares RN) ampicillin-sulbactam (UNASYN) 3 g vial attach to sodium chloride 0.9% 100 mL Mini-Bag Plus 3 g, Intravenous, EVERY 12 HOURS, First dose on [place] 10/19/18 at 2100, Until Discontinued, Administer over 30 Minutes, Warning Vesicant/Irritant Medication , Indication for (Active or Suspected): Skin/Skin Structure 0936 (New Bag - Provider: Chantale Cazares RN)1006 (Stopped - Provider: Chantale Cazares RN)2011 (New Bag - Provider: Julianna Davila RN)2041 (Stopped - Provider: Julianna Davila RN) 0826 (New Bag - Provider: Chantale Cazares RN)0856 (Stopped - Provider: Chantale Cazares RN)2055 (New Bag - Provider: Ivelisse Tovar RN)212 (Stopped - Provider: Ivelisse Tovar RN) 0829 (New Bag - Provider: Chantale Cazares RN)0859 (Stopped - Provider: Chantale Cazares RN) aspirin tablet 325 mg 325 mg, Oral, DAILY, First dose on Tue10/20/18 at 0900, Until Discontinued, Routine 0936 (Given - Provider: Chantale Cazares RN) 0827 (Given - Provider: Chantale Cazares RN) 0827 (Given - Provider: Chantale Cazares RN) atorvastatin (LIPITOR) tablet 10 mg 10 mg, Oral, EVERY EVENING, First dose on Tue10/19/18 at 2030, Until Discontinued 1625 (Given - Provider: Chantale Cazares RN) 1736 (Given - Provider: Chantale Cazares RN) B Complex-Vitamin C-Folic Acid (NEPHROCAP) 1 mg capsule 1 capsule 1 capsule, Oral, DAILY, First dose on Tue10/20/18 at 0900, Until Discontinued, Routine 0938 (Given - Provider: Chantale Cazares RN) 08 (Given - Provider: Chantale Cazares RN) 08 (Given - Provider: Chantale Cazares RN) bumetanide (BUMEX) tablet 2 mg 2 mg, Oral, 2 TIMES DAILY, First dose on [place] 10/19/18 at 2100, Until Discontinued, Routine 0936 (Given - Provider: Chantale Cazares RN)2012 (Given - Provider: Julianna Davila RN) 08 (Given - Provider: Chantale Cazares RN)2055 (Given - Provider: Ivelisse Tovar, PERNELL) 826 (Given - Provider: Chantale Cazares RN) diphenhydrAMINE (BENADRYL) capsule 25 mg (COMPLETED) 25 mg, Oral, ONCE, 1 dose, On 10/21/18 at 2215, For itchy new rash between scapula to neck- not relieved by sarna lotion, Routine 221 (Given - Provider: Ivelisse Tovar, PERNELL) gabapentin (NEURONTIN) capsule 300 mg 300 mg, Oral, 3 TIMES DAILY, First dose on [place] 10/19/18 at 2100, Until Discontinued, Routine 0938 (Given - Provider: Chantale Cazares RN)1625 (Given - Provider: Chantale Cazares RN)2012 (Given - Provider: Julianna Davila RN) 826 (Given - Provider: Chantale Cazares RN)155 (Given - Provider: Chantale Cazares RN)2055 (Given - Provider: Ivelisse Tovar, PERNELL) 827 (Given - Provider: Chantale Cazares RN) heparin (porcine) injection 3,000 Units (COMPLETED) 3,000 Units, Intravenous, ONCE IN DIALYSIS, 1 dose, On 10/21/18 at 0945, For use in Dialysis only with direct provider supervision and verbal order., Dialysis (Intra-Procedure), Routine 1105 (Given - Provider: Tali Alexandre RN) heparin (Porcine) subcutaneous injection 5,000 Units 5,000 Units, Subcutaneous, EVERY 12 HOURS SCHEDULED (2 times per day), First dose on [place] 19 at 2100, Until Discontinued, Routine 936 (Given - Provider: Chantale Cazares RN)2012 (Given - Provider: Julianna Davila RN) 825 (Given - Provider: Chantale Cazaers RN)2055 (Given - Provider: Ivelisse Tovar, PERNELL) 826 (Given - Provider: Chantale Cazares RN) insulin glargine VIAL injection 20 Units 20 Units, Subcutaneous, EVERY 24 HOURS, First dose on Tue10/20/18 at 1300, Until Discontinued, Routine 2011 (Given - Provider: Julianna Davila RN) 2055 (Given - Provider: Ivelisse Tovar, PERNELL) insulin lispro (HumaLOG) VIAL injection 0-10 Units 0-10 Units, Subcutaneous, 3 TIMES DAILY WITH MEALS, First dose on Tue10/20/18 at 1200, Until Discontinued, [employer] Give 1 unit for every 8 grams carbohydrate. Hold if not eating, Routine 121 (Given - Provider: Chantale Cazares RN)1742 (Given - Provider: Chantale Cazares RN) 825 (Given - Provider: Chantale Cazares RN)1200 (Not Given - Provider: Chantale Cazares RN - Reason: See comment - Comment: Pt in HD)173 (Given - Provider: Chantale Cazares RN) 826 (Given - Provider: Chantale Cazares RN)1300 (Given - Provider: Chantale Cazares RN) insulin lispro (HumaLOG) VIAL injection 2-8 Units (CANCELED) 2-8 Units, Subcutaneous, EVERY 6 HOURS, First dose on Tue10/19/18 at 2030, Until Discontinued, CORRECTION BOLUS Moderate BG 140 - 160 Give 2 units BG 161 - 200 Give 4 units BG 201 - 240 Give 6 units BG greater than 240, give 8 units and recheck BG in 2 hours.If BG less than 240 after two hours, give no insulin and resume prior schedule. If BG remains greater than 240, repeat 8 units (no more than three times) & call for new basal insulin orders. DO NOT hold if NPO, unless specifically told to do so., Routine 328 (Given - Provider: Cari Anderson RN)929 (Given - Provider: Chantale Cazares RN) insulin lispro (HumaLOG) VIAL injection 2-8 Units(Linked Group 1) 2-8 Units, Subcutaneous, EVERY 4 HOURS SCHEDULED, First dose (after last modification) on Tue10/20/18 at 1200, Until Discontinued, CORRECTION BOLUS Moderate BG 140 - 160 Give 2 units BG 161 - 200 Give 4 units BG 201 - 240 Give 6 units BG greater than 240, give 8 units and recheck BG in 2 hours.If BG less than 240 after two hours, give no insulin and resume prior schedule. If BG remains greater than 240, repeat 8 units (no more than three times) & call for new basal insulin orders. DO NOT hold if NPO, unless specifically told to do so., Routine 1216 (Given - Provider: Chantale Cazares RN)1624 (Given - Provider: Chantale Cazares RN)2011 (Given - Provider: Julianna Davila RN)2340 (Not Given - Provider: Julianna Davila RN - Reason: Order parameters not met - Comment: BG 88) 0422 (Not Given - Provider: Julianna Davila RN - Reason: Order parameters not met - Comment: BG 115)0707 (Not Given - Provider: Julianna Davila RN - Reason: Order parameters not met - Comment: BG 113)1200 (Not Given - Provider: Chantale Cazares RN - Reason: See comment - Comment: Pt in HD)1550 (Not Given - Provider: Chantale Cazares RN - Reason: Order parameters not met - Comment: BG 113)2014 (Given - Provider: Ivelisse Tovar RN) 0000 (Not Given - Provider: Ivelisse Tovar RN - Reason: Order parameters not met)0400 (Not Given - Provider: Ivelisse Tovar RN - Reason: Order parameters not met)0800 (Not Given - Provider: Chantale Cazares RN - Reason: Order parameters not met - Comment: BG 132)1200 (Not Given - Provider: Chantale Cazares RN - Reason: Order parameters not met - Comment: BG 115) lidocaine (XYLOCAINE) 10 mg/mL (1 %) injection 3 mg (COMPLETED) 3 mg (0.3 mL), Intradermal, ONCE, 1 dose, On Tue10/21/18 at 1130, For use in dialysis only, Routine 1100 (Given - Provider: Tali Alexandre, PERNELL) losartan (COZAAR) tablet 50 mg 50 mg, Oral, DAILY, First dose on Tue10/20/18 at 0900, Until Discontinued, Routine 0937 (Given - Provider: Chantale Cazares RN) 08 (Given - Provider: Chantale Cazares, PERNELL) 08 (Given - Provider: Chantale Cazares RN) melatonin tablet 3 mg (COMPLETED) 3 mg, Oral, ONCE, 1 dose, On Tue10/20/18 at 2300, Routine 2253 (Given - Provider: Julianna Davila RN) sertraline (ZOLOFT) tablet 25 mg 25 mg, Oral, DAILY, First dose on Tue10/20/18 at 0900, Until Discontinued, Routine 0937 (Given - Provider: Chantale Cazares RN) 08 (Given - Provider: Chantale Cazares RN) 08 (Given - Provider: Chantale Cazares RN) sodium chloride 0.9 % (flush) flush 5 mL 5 mL, Intravenous, 2 TIMES DAILY, First dose on Tue10/19/18 at 2100, Until Discontinued, Routine 0939 (Given - Provider: Chantale Cazares RN)2022 (Given - Provider: Julianna Davila RN) 08 (Given - Provider: Chantale Cazares RN)2055 (Given - Provider: Ivelisse Tovar RN) 08 (Given - Provider: Chantale Cazares RN) tamsulosin (FLOMAX) ER capsule 0.4 mg 0.4 mg, Oral, DAILY, First dose on Tue10/20/18 at 0900, Until Discontinued, DO NOT CRUSH OR OPEN, Routine 0937 (Given - Provider: Chantale Cazares RN) 08 (Given - Provider: Chantale Cazares RN) 08 (Given - Provider: Chantale Cazares RN) PRN Medication Order 10/20/2018 10/21/2018 10/22/2018 acetaminophen (TYLENOL) tablet 650 mg (CANCELED) 650 mg, Oral, EVERY 8 HOURS PRN, Starting on [place] 10/19/18 at 2150, Until Tue10/20/18 at 1634, Pain, Fever, Headaches, Maximum dose of acetaminophen is 4000 mg from all sources in 24 hours., Routine 1059 (Given - Provider: Chantale Cazares RN) camphor-menthol (SARNA) lotion 1 each 1 each, Topical (Top), 3 TIMES DAILY PRN, Itching, left LE, Starting on 10/21/18 at 1845, Until 10/22/18 at 1626 dextrose 50% intravenous solution 25-50 mL(Linked Group 2) 25-50 mL (12.5-25 g), Intravenous, EVERY 1 HOUR PRN, Starting on [place] 10/19/18 at 2009, Until 10/22/18 at 1626, Low blood sugar, For BG 50-70 mg/dL: Oral treatment preferred:?? If able to drink, give 120 mL Juice or Regular (not diet) soda OR If NPO, give 15 gram glucose 40% oral gel massaged into buccal mucosa OR if unconscious or uncooperative, give 12.5 gram (25 mL) Dextrose 50% IV OR, if no IV access, give 1 mg Glucagon IM. For BG less than 50 mg/dL: Oral treatment preferred:?? If able to drink, give 240 mL Juice or Regular (not diet) soda OR If NPO, give 30 gram glucose 40% oral gel massaged in buccal mucosa OR if unconscious or uncooperative, give 25 gram (50 mL) Dextrose 50% IV OR, if no IV access, give 1 mg Glucagon IM. Recheck BG in 30 minutes. May repeat juice, gel, dextrose or glucagon once per episode. To avoid extravasation, push Dextrose 50% SLOWLY (3 mL over 1 minute) in a patent, running IV, preferably a central line. For persistent hypoglycemia, consider longer-acting treatment for the duration of the active insulin., Routine epoetin babs (EPOGEN;PROCRIT) injection 12,000 Units (COMPLETED) 12,000 Units, Intravenous, ONCE IN DIALYSIS PRN, 1 dose, Starting on 10/21/18 at 0927, Until 10/21/18 at 1306, Other, Dialysis (Intra-Procedure), Routine, What is the indication of use? End Stage Renal Disease (ESRD) on dialysis 1306 (Given - Provider: Tali Alexandre RN) glucagon (human recombinant) injection SolR 1 mg(Linked Group 2) 1 mg, Intramuscular, EVERY 1 HOUR PRN, Starting on [facility] 10/19/18 at 2008, Until [place] 10/22/18 at 1626, Low blood sugar, For BG 50-70 mg/dL: Oral treatment preferred:?? If able to drink, give 120 mL Juice or Regular (not diet) soda OR If NPO, give 15 gram glucose 40% oral gel massaged into buccal mucosa OR if unconscious or uncooperative, give 12.5 gram (25 mL) Dextrose 50% IV OR, if no IV access, give 1 mg Glucagon IM. For BG less than 50 mg/dL: Oral treatment preferred:?? If able to drink, give 240 mL Juice or Regular (not diet) soda OR If NPO, give 30 gram glucose 40% oral gel massaged in buccal mucosa OR if unconscious or uncooperative, give 25 gram (50 mL) Dextrose 50% IV OR, if no IV access, give 1 mg Glucagon IM. Recheck BG in 30 minutes. May repeat juice, gel, dextrose or glucagon once per episode. To avoid extravasation, push Dextrose 50% SLOWLY (3 mL over 1 minute) in a patent, running IV, preferably a central line. For persistent hypoglycemia, consider longer-acting treatment for the duration of the active insulin., Routine glucose (GLUTOSE) 40% oral gel(Linked Group 2) 15-30 g, Buccal, EVERY 30 MIN PRN, Starting on [facility] 10/19/18 at 2008, Until [place] 10/22/18 at 1626, Low blood sugar, For BG 50-70 mg/dL: Oral treatment preferred:?? If able to drink, give 120 mL Juice or Regular (not diet) soda OR If NPO, give 15 gram glucose 40% oral gel massaged into buccal mucosa OR if unconscious or uncooperative, give 12.5 gram (25 mL) Dextrose 50% IV OR, if no IV access, give 1 mg Glucagon IM. For BG less than 50 mg/dL: Oral treatment preferred:?? If able to drink, give 240 mL Juice or Regular (not diet) soda OR If NPO, give 30 gram glucose 40% oral gel massaged in buccal mucosa OR if unconscious or uncooperative, give 25 gram (50 mL) Dextrose 50% IV OR, if no IV access, give 1 mg Glucagon IM. Recheck BG in 30 minutes. May repeat juice, gel, dextrose or glucagon once per episode. To avoid extravasation, push Dextrose 50% SLOWLY (3 mL over 1 minute) in a patent, running IV, preferably a central line. For persistent hypoglycemia, consider longer-acting treatment for the duration of the active insulin. 1 tube contains 15 grams of glucose (net weight of tube = 37.5 grams., Routine iohexol (OMNIPAQUE) 350 mg/mL solution 0-200 mL (COMPLETED) 0-200 mL, Intravenous, ONCE PRN, 1 dose, Starting on Tue10/20/18 at 1604, Until Tue10/20/18 at 1604, Per Protocol, Warning Vesicant/Irritant Medication , Radiology Contrast, Routine 1604 (Given - Provider: Aicha Ly) lidocaine (XYLOCAINE) 10 mg/mL (1 %) injection 3 mg 3 mg (0.3 mL), Subcutaneous, ONCE PRN, 1 dose, Starting on Tue10/19/18 at 2008, Until Tue10/22/18 at 1626, for discomfort with PIV insertion, Routine sodium chloride 0.9 % (flush) flush 5-20 mL 5-20 mL, Intravenous, EVERY 1 MIN PRN, Starting on Tue10/19/18 at 2008, Until Tue10/22/18 at 1626, flush, Flush pertains to all indwelling lines. Flush per protocol found in the job aid using the link provided on this medication record., Routine traMADol (ULTRAM) tablet 50-100 mg 50-100 mg, Oral, EVERY 6 HOURS PRN, Starting on Tue10/20/18 at 1630, Until Tue10/22/18 at 1626, Pain, Give 50 mg for mild to moderate pain (1-6). Give 100 mg for severe pain (7-10) If pain not relived after 60 minutes by a dose of 50 mg then may repeat 50 mg ONCE. Maximum of 400 mg/day., Routine 2235 (Given - Provider: Julianna Davila RN) 826 (Given - Provider: Chantale Cazares RN)2057 (Given - Provider: Ivelisse Tovar RN) Linked Groups Order Group 1: POCT Fingerstick Glucose (CANCELED) Routine, EVERY 4 HOURS, First occurrence on Tue10/20/18 at 1200, Until Specified, Consider choosing FOUR TIMES A DAY BEFORE MEALS AND AT BEDTIME as frequency for: Patients who have a good hypoglycemia awareness: -Patients who are eating meals during the day and sleeping at night -Patient who are otherwise stable And insulin lispro (HumaLOG) VIAL injection 2-8 UnitsJump to med 2-8 Units, Subcutaneous, EVERY 4 HOURS SCHEDULED, First dose (after last modification) on Tue10/20/18 at 1200, Until Discontinued, CORRECTION BOLUS Moderate BG 140 - 160 Give 2 units BG 161 - 200 Give 4 units BG 201 - 240 Give 6 units BG greater than 240, give 8 units and recheck BG in 2 hours.If BG less than 240 after two hours, give no insulin and resume prior schedule. If BG remains greater than 240, repeat 8 units (no more than three times) & call for new basal insulin orders. DO NOT hold if NPO, unless specifically told to do so., Routine Group 2: glucose (GLUTOSE) 40% oral gelJump to med 15-30 g, Buccal, EVERY 30 MIN PRN, Starting on [place] 10/19/18 at 2008, Until 10/22/18 at 1626, Low blood sugar, For BG 50-70 mg/dL: Oral treatment preferred:?? If able to drink, give 120 mL Juice or Regular (not diet) soda OR If NPO, give 15 gram glucose 40% oral gel massaged into buccal mucosa OR if unconscious or uncooperative, give 12.5 gram (25 mL) Dextrose 50% IV OR, if no IV access, give 1 mg Glucagon IM. For BG less than 50 mg/dL: Oral treatment preferred:?? If able to drink, give 240 mL Juice or Regular (not diet) soda OR If NPO, give 30 gram glucose 40% oral gel massaged in buccal mucosa OR if unconscious or uncooperative, give 25 gram (50 mL) Dextrose 50% IV OR, if no IV access, give 1 mg Glucagon IM. Recheck BG in 30 minutes. May repeat juice, gel, dextrose or glucagon once per episode. To avoid extravasation, push Dextrose 50% SLOWLY (3 mL over 1 minute) in a patent, running IV, preferably a central line. For persistent hypoglycemia, consider longer- acting treatment for the duration of the active insulin. 1 tube contains 15 grams of glucose (net weight of tube = 37.5 grams., Routine Or dextrose 50% intravenous solution 25-50 mLJump to med 25-50 mL (12.5-25 g), Intravenous, EVERY 1 HOUR PRN, Starting on [facility] 10/19/18 at 2008, Until [place] 10/22/18 at 1626, Low blood sugar, For BG 50-70 mg/dL: Oral treatment preferred:?? If able to drink, give 120 mL Juice or Regular (not diet) soda OR If NPO, give 15 gram glucose 40% oral gel massaged into buccal mucosa OR if unconscious or uncooperative, give 12.5 gram (25 mL) Dextrose 50% IV OR, if no IV access, give 1 mg Glucagon IM. For BG less than 50 mg/dL: Oral treatment preferred:?? If able to drink, give 240 mL Juice or Regular (not diet) soda OR If NPO, give 30 gram glucose 40% oral gel massaged in buccal mucosa OR if unconscious or uncooperative, give 25 gram (50 mL) Dextrose 50% IV OR, if no IV access, give 1 mg Glucagon IM. Recheck BG in 30 minutes. May repeat juice, gel, dextrose or glucagon once per episode. To avoid extravasation, push Dextrose 50% SLOWLY (3 mL over 1 minute) in a patent, running IV, preferably a central line. For persistent hypoglycemia, consider longer-acting treatment for the duration of the active insulin., Routine Or glucagon (human recombinant) injection SolR 1 mgJump to med 1 mg, Intramuscular, EVERY 1 HOUR PRN, Starting on [place] 10/19/18 at 2008, Until 10/22/18 at 1626, Low blood sugar, For BG 50-70 mg/dL: Oral treatment preferred:?? If able to drink, give 120 mL Juice or Regular (not diet) soda OR If NPO, give 15 gram glucose 40% oral gel massaged into buccal mucosa OR if unconscious or uncooperative, give 12.5 gram (25 mL) Dextrose 50% IV OR, if no IV access, give 1 mg Glucagon IM. For BG less than 50 mg/dL: Oral treatment preferred:?? If able to drink, give 240 mL Juice or Regular (not diet) soda OR If NPO, give 30 gram glucose 40% oral gel massaged in buccal mucosa OR if unconscious or uncooperative, give 25 gram (50 mL) Dextrose 50% IV OR, if no IV access, give 1 mg Glucagon IM. Recheck BG in 30 minutes. May repeat juice, gel, dextrose or glucagon once per episode. To avoid extravasation, push Dextrose 50% SLOWLY (3 mL over 1 minute) in a patent, running IV, preferably a central line. For persistent hypoglycemia, consider longer-acting treatment for the duration of the active insulin., Routine documented in this encounter Care Teams Manual Arts Therapist Relationship Specialty Start Date End Date Jarad Keller DNP PCP - General Family Medicine 06/05/18 02/09/21 documented as of this encounter
--- OUTSIDE RECORDS SUMMARY | 2023-12-28 16:39 | XMS_ITS | Encounter Summary ---
[place] [address] Care Team Providers Care Project Engineer Name Role Phone Jarad Keller DNP Primary Care Provider [phone] Encounter Details Date Type Department Care Team (Late st Contact Info) Description 07/29/2019 9:10 PM EDT Ancillary Procedure [place] [address] Aaron Dover MD [facility] [place] [address] Social History Tobacco Use Types Packs/Day Years [...] Comments FILM LIBRARY STORAGE ONLY CT HEAD AND SPINE Routine 07/29/2019 9:05 PM EDT documented in this encounter Results * Film Library- Storage Only CT Head And Spine (07/29/2019 9:05 PM EDT) Narrative [place] - 07/29/2019 9:05 PM EDT This exam is auto-finalizing. It's purpose is for storage only. Aaron Dover MD IMG FILM LIBRARY ORD ERABLES Performing Organization Address City/State/[facility] Co de Phone Number [place], [place] documented in this encounter Visit Diagnoses Not on filedocumented in this encounter Care Teams Project Engineer Relationship Specialty Start Date End Date Jarad Keller DNP PCP - General Family Medicine 06/05/18 02/09/21 documented as of this encounter
--- OUTSIDE RECORDS SUMMARY | 2023-12-28 16:39 | XMS_ITS | Encounter Summary ---
Author Organization [facility] [place] [address] Care Team Providers Care Paper Sorter Name Role Phone Jarad Keller DANIKA Primary Care Provider [phone] Reason for Referral * Consultation (Routine) - Specialty Diagnoses / Procedures Referred By Puneet hallman Referred To Contact Ophthalmology Diagnoses Type 2 diabetes mellitus with retinopathy, with long-term current use of insulin, macular edema presence unspecified, unspecified laterality, unspecified retinopathy severity Ceasar Roy MD [facility] [address] Gudelia Carter OD [facility] [place] [address] Referral ID Status Reason Start Date Expiration Date V isits Requested Visits Authorized [id number] Consult, Test & Treat 08/18/2018 08/18/2019 1 1 Reason for Visit * Consultation (Routine) - Specialty Diagnoses / Procedures Referred By Contac t Referred To Contact Endocrinology Diagnoses DM TYPE 2, END STAGE RENAL DISEASE Jarad Keller, DNP [address] [place] [address] [facility] [address] [place] [address] Referral ID Status Reason Start Date Expiration Date V isits Requested Visits Authorized [id number] Consult, Test & Treat [facility] 06/05/2018 06/05/2019 6 6 Encounter Details Date Type Department Care Team (Late st Contact Info) Description 08/18/2018 9:00 AM EDT Office [place] [address] Ceasar Roy MD [facility] [place] [address] Type 2 diabetes mellitus with retinopathy, with long-term current use of insulin, macular edema presence unspecified, unspecified laterality, unspecified retinopathy severity; Hypertension, unspecified type; Class 2 obesity with body mass index (BMI) of 38.0 to 38.9 in adult, unspecified obesity type, unspecified whether serious comorbidity present Social History Tobacco Use Types Packs/Day Years [...] Sign Reading Time Taken Comments Blood Pressure 167/60 08/18/2018 8:25 AM EDT Pulse 88 08/18/2018 8:25 AM EDT Temperature - - Respiratory Rate - - Oxygen Saturation - - Inhaled Oxygen Concentration - - Weight 103 kg (227 lb) 08/18/2018 8:25 AM EDT Height 162.6 cm (5' 4) 08/18/2018 8:25 AM EDT Body Mass Index 38.96 08/18/2018 8:25 AM EDT documented in this encounter Patient Instructions * Patient Instructions* Ceasar Roy MD - 08/18/2018 9:00 AM EDT 1) Restart Vgo insulin system: 40 units basal and 6 clicks with each meal. Start 22 hours after your last lantus shot 2) Bring meter to next visit 3) I made a referral to the eye clinic documented in this encounter Progress Notes * Ceasar Roy MD - 08/18/2018 9:00 AM EDT Mr. Maurice Rudolph is an 58 y.o. male who presents for chief complaint of Diabetes Type 2 Referred by: Jarad Keller APRN He presents today to establish care for type 2 diabetes. He recently moved from [place], and since moving to this area DM has been managed by PCP He tells me that he was diagnosed with DM at age 34. Initially he was managed with oral meds, but in recent years he has been treated with insulin. For 3 years, through May 2018, he was using Vgo insulin pump and tells me he had quite good control of his A1c relative to using pens, A1c decreased from 11s to 8s. He used to use the Vgo 40 and 6 clicks (12 units) with each meal. He did not have any hypoglycemia on this regimen. Notably, he is undergoing evaluation for renal transplant and has established care with [facility]. He was told that he needs to lose an additional 5 lb prior to his candidacy. Family history of diabetes: both parents, type 2 Complications: proliferative DM retinopathy, nephropathy/ESRD, lower extremity neuropathy. 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 He has HTN butblood pressure usually runs low at HD sessions Other relevant PMH: GERD, CAD Relevant surgical history: S/p CABG x2 2015 [facility] [place] HD site: [facility] on //Tue 24 dietary recall: Eats two meals daily, sometimes breakfast Breakfast: sausage, eggs Lunch: Peanut butter sandwich Dinner: lithuanian food Doesn't usually snack Drinks: Diet soda, water Has worked with food production manager in past but did not find it helpful Exercise: not able to exercise much due to hip pain Meter: one touch. 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 aspirin 325 mg Tablet, Take 325 mg by mouth daily., Disp: , Rfl: ??? losartan (COZAAR) 50 mg Tablet, Take [...] 3 times daily., Disp: , Rfl: ??? insulin glargine (LANTUS) 100 unit/mL vial injection, Inject 40 Units subcutaneously nightly., Disp: , Rfl: ??? sertraline (ZOLOFT) 25 mg tablet, Take 25 mg by mouth daily., Disp: , Rfl: ??? pravastatin (PRAVACHOL) 40 mg Tablet, Take 40 mg by mouth daily., Disp: , Rfl: ??? glucagon, Human Recombinant, 1 mg Recon Soln, Use in case of emergency for low blood sugar, Disp: 1 each, Rfl: 5 ??? sub-q insulin device, 40 unit (V-GO 40) Device, 40 Units by [facility]Non-Drug; Combo Route) route daily., Disp: 30 Device, Rfl: 11 ??? insulin aspart U-100 (NOVOLOG) Solution, Use 76 units daily via Vgo pump, Disp: 30 mL, Rfl: 11 ??? blood sugar diagnostic strips Strip, Use to check blood sugar 3 times daily, Disp: 200 each, Rfl: 11 Past Medical History: Diagnosis Date ??? Acute [...] insulin Patient Active Problem List Diagnosis ??? Pre-transplant evaluation for kidney transplant ??? Class 2 severe obesity due to excess calories with serious comorbidity and body mass index (BMI) of 39.0 to 39.9 in adult ??? Pseudophakia of both eyes ??? PCO (posterior capsular opacification) ??? Eye pain ??? Ocular hypertension of right eye. Postop ??? Ischemic diabetic maculopathy ??? 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) ??? Hyperopia ??? Acute angle-closure glaucoma of right eye ??? HTN (hypertension) ??? GERD (gastroesophageal reflux disease) ??? Proliferative diabetic retinopathy, both eyes Overview Note: No Known Allergies Physical Exam: Patient Vitals for the past 24 hrs: Pulse BP 08/18/18 0825 88 167/60 Wt & BMI By Encounter Date Office Visit from 08/18/2018 in Endocrinology at [place] Office Visit from 06/08/2018 in Solid Organ Transplant at [place] Weight 103 kg (227 lb) 1 08/18/2018 0825 101.1 kg (222 lb 12.8 oz) 1 06/08/2018 1118 BMI 38.96 1 08/18/2018 0825 38.94 1 06/08/2018 1118 General: no acute distress, pleasant, sitting comfortably Face: not round or red Eyes: no lid lag; normal eye movements Nose: not enlarged Mouth: Mucous membranes moist Neck: no supraclavicular fat pads; trachea midline Respiratory: symmetrical chest expansion, breathing comfortably on room air, clear to auscultation Cardiovascular: 2+ DP pulses, regular rhythm, no murmur, S1/S2 Musculoskeletal: moving all 4 extremities normally; normal male musculature Skin: normal temperature/texture, no foot wounds Neurological: no tremors; reduced sensation on bottom of both feet to 10g monofilament Psychological: alert/oriented to person, place, time; normal affect; memory intact; normal judgement/insight Radiology Studies: Laboratory Data: Component Latest Ref Rng & Units 06/08/2018 Hemoglobin A1C 4.3 - 5.6 % 11.2 (H) Est Avg Gluc mg/dL 275 Fructosamine 200 - 285 mcmol/L 538 (H) C-Peptide 0.8 - 5.2 ng/mL 11.0 (H) Assessment / Plan: 1) Diabetes Mellitus Type 2, uncontrolled with hyperglycemia - complicated by retinopathy, CKD - uncontrolled in setting of suboptimal frequency of fingerstick checking, non optimal diet, inadequate prandial insulin coverage - we discussed foundational principles of optimal diabetic diet including the concept of low glycemic index diet - increase frequency of checking sugars to at least BID - discussed measures to correct sugars if needed including rule of 15. Prescribed glucagon in case of emergency - reminded patient to have yearly eye exam, I made referral to [facility] ophthalmology given complexity of his retinopathy - medications: restart Vgo 40 and 6 clicks with each meal (12 clicks) 2) HTN: His BP is elevated today but he tells me he runs low at HD, so I will defer potential medication titration to his manager transfer 3) Obesity class II with serious comorbidity - we discussed at length that loss of 5-10% of his body weight would have significant positive impact to improve cardiometabolic risk - encouraged him to increase activity as tolerated to 30 minutes on most days - I strongly recommend referral to weight and wellness center at [facility]. He will discuss with his due to complexity of getting rides to [facility] and let me know if he would like a referral Please do not hesitate to contact me with questions A note will be sent to the referring provider Return to clinic 6-8 weeks Ceasar Roy MD [employer] cashier food prep Endocrinology [facility] documented in this encounter Plan of Treatment Scheduled Referrals Name Type Priority Associated Diagnoses Order Schedule Referral to Ophthalmology Outpatient Referral Routine Type 2 diabetes mellitus with retinopathy, with long-term current use of insulin, macular edema presence unspecified, unspecified laterality, unspecified retinopathy severity Ordered: 08/18/2018 documented as of this encounter Visit Diagnoses Diagnosis Type 2 diabetes mellitus with retinopathy, with long-term current use of insulin, macular edema presence unspecified, unspecified laterality, unspecified retinopathy severity Hypertension, unspecified type Class 2 obesity with body mass index (BMI) of 38.0 to 38.9 in adult, unspecified obesity type, unspecified whether serious comorbidity present documented in this encounter Care Teams Paper Sorter Relationship Specialty Start Date End Date Jarad Keller DNP PCP - General Family Medicine 06/05/18 02/09/21 documented as of this encounter
--- OUTSIDE RECORDS SUMMARY | 2023-12-28 16:39 | XMS_ITS | Encounter Summary ---
[place] [address] Care Team Providers Care Enterprise Business Architect Name Role Phone Jarad Keller DNP Primary Care Provider [phone] Reason for Visit * Reason Onset Date Comments Medication Refill 06/15/2019 Encounter Details Date Type Department Care Team (Late st Contact Info) Description 06/15/2019 Ref[place] [address] Ray Pearl RN Social History Tobacco Use Types Packs/Day [...] on filedocumented in this encounter Care Teams Enterprise Business Architect Relationship Specialty Start Date End Date Jarad Keller DNP PCP - General Family Medicine 06/05/18 02/09/21 documented as of this encounter
--- OUTSIDE RECORDS SUMMARY | 2023-12-28 16:39 | XMS_ITS | Encounter Summary ---
[place] [address] Care Team Providers Care Senior Ux Designer Name Role Phone Jarad Keller DANIKA Primary Care Provider [phone] Reason for Visit * Reason Onset Date Comments Appointment 07/18/2019 Encounter Details Date Type Department Care Team (Late st Contact Info) Description 07/18/2019 [place] [address] Harmeet Arvizu MD [facility] [place] [address] Appointment Social History Tobacco Use Types Packs/Day [...] encounter Miscellaneous Notes * Telephone Encounter - Margaret Hayden - 07/20/2019 8:37 AM EDT Patient scheduled * Telephone Encounter - Wilda Moseley - 07/18/2019 2:38 PM EDT LM offering to move 07/20/19 appt out to next avail per Nolberto documented in this encounter Plan of Treatment Not on file documented as of this encounter Visit Diagnoses Not on filedocumented in this encounter Care Teams Senior Ux Designer Relationship Specialty Start Date End Date Jarad Keller DNP PCP - General Family Medicine 06/05/18 02/09/21 documented as of this encounter
--- OUTSIDE RECORDS SUMMARY | 2023-12-28 16:39 | XMS_ITS | Encounter Summary ---
[place] [address] Care Team Providers Care Handle Lathe Operator Name Role Phone Jarad Keller DNP Primary Care Provider [phone] Encounter Details Date Type Department Care Team (Late st Contact Info) Description 06/27/2018 Notes Only [place] [address] Tamar Smith RN Social History Tobacco Use [...] as of this encounter Progress Notes * Tamar Bailey RN - 06/27/2018 2:06 PM EST Letter sent to Maurice asking him to call us to discuss his required testing. Have been unable to reach him since he attended our class/evaluation day on 06/08/2018. documented in this encounter Plan of Treatment Not on file documented as of this encounter Visit Diagnoses Not on filedocumented in this encounter Care Teams Handle Lathe Operator Relationship Specialty Start Date End Date Jarad Keller DNP PCP - General Family Medicine 06/05/18 02/09/21 documented as of this encounter
--- OUTSIDE RECORDS SUMMARY | 2023-12-28 16:39 | XMS_ITS | Encounter Summary ---
[place] [address] Care Team Providers Care Head Turbine Operator Name Role Phone Jarad Keller DNP Primary Care Provider [phone] Reason for Visit * Reason Onset Date Comments Prior Authorization 09/29/2018 VGo 40 Encounter Details Date Type Department Care Team (Late st Contact Info) Description 09/29/2018 Telephone [place] [address] Simi Singh glass enamel mixer (VGo 40) Social History Tobacco Use Types Packs/Day Years [...] encounter Miscellaneous Notes * Telephone Encounter - Simi Nava RN - 10/02/2018 10:26 AM EDT PA Approved from 07/01/18-09/29/19. Approval faxed to RA Martin. Confirmation received. * Telephone Encounter - Simi Nava RN - 09/29/2018 2:15 PM EDT Medication Prior Authorization BILLIE Medication name/dose/directions: VGo 40 Rationale for request: Suboptimal coverage on injections Health plan: Medicare Authorizing digital sales representative name: Virgie Faxed to health plan on: 09/29/18 via [facility] Health plan decision: Quantity approved: Authorization number: Start date: End date: * Telephone Encounter - Simi Nava RN - 09/29/2018 11:35 AM EDT Pt left msg that Medicare won't cover his VGo. RA in [place] faxing denial so we can f/u. documented in this encounter Plan of Treatment Not on file documented as of this encounter Visit Diagnoses Not on filedocumented in this encounter Care Teams Head Turbine Operator Relationship Specialty Start Date End Date Jarad Keller DNP PCP - General Family Medicine 06/05/18 02/09/21 documented as of this encounter
--- OUTSIDE RECORDS SUMMARY | 2023-12-28 16:39 | XMS_ITS | Encounter Summary ---
[place] [address] Care Team Providers Care Curtain Fitter Name Role Phone Jarad Keller DNP Primary Care Provider [phone] Encounter Details Date Type Department Care Team (Late st Contact Info) Description 07/30/2019 12:30 AM EDT Ancillary Procedure [place] [address] Social History Tobacco Use Types Packs/Day Years [...] Diagnosis Comments REQUEST FOR 2ND READ CT CHEST ABDOMEN PELVIS STAT 07/30/2019 12:21 AM EDT documented in this encounter Results * Request For 2nd Read CT Chest [...] of intravenous contrast. Preliminary report signed by: Rylan Bella at 07/30/2019 1:03 AM I have personally reviewed the image(s) and the resident's interpretation and agree with the findings, Huang Hernandez at 07/30/2019 1:42 AM Thank you for letting us participate in the care of this patient. For questions regarding this report, please contact the number below. ? Electronically signed by: Huang Hernandez [facility] ([phone]), at 07/30/2019 1:42 AM Narrative 07/30/2019 1:42 AM EDT EXAMINATION: REQUEST [...] add comments as necessary): chest abdomen pelvis; [facility]; Date of exam [id number]; I believe a [...] of intravenous contrast. Preliminary report signed by: Rylan Bella at 07/30/2019 1:03 AM I have personally reviewed the image(s) and the resident's interpretationand agree with the findings, Huang Hernandez at 07/30/2019 1:42 AM Thank you for letting us participate in the care of this patient. Forquestions regarding this report, please contact the number below. Electronically signed by: Huang Hernandez [facility]([phone]), at 07/30/2019 1:42 AM Kimani Kiser MD IMG OUTSIDE INTERPRE TATION ORDERABLES documented in this encounter Visit Diagnoses Not on filedocumented in this encounter Care Teams Curtain Fitter Relationship Specialty Start Date End Date Jarad Keller DNP PCP - General Family Medicine 06/05/18 02/09/21 documented as of this encounter
--- OUTSIDE RECORDS SUMMARY | 2023-12-28 16:39 | XMS_ITS | Encounter Summary ---
Author [facility] [place] [address] Care Team Providers Care Leader Tier Name Role Phone Jarad Keller DNP Primary Care Provider [phone] Encounter Details Date Type Department Care Team (Late st Contact Info) Description 10/19/2018 Telephone Nephrology [place] [address] Too Morgan MD [facility] [place] [address] Social History Tobacco Use Types Packs/Day Years [...] as of this encounter Progress Notes * Too Morgan MD - 10/19/2018 9:44 AM EDTPatient is seen in dialysis. He was recently admitted to [facility]. He was admitted for cellulitis and initially treated with vancomycin and subsequently changed to cefazolin. The patient was discharged to our outpatient dialysis unit on Tuesday of this week. He was to receive IV ceftezole and according to the discharge summary. Based on the cellulitis we elected to give him 2 g of vancomycin. He present s to today's dialysis with a warm red leg with advancing cellulitis. We will continue the vancomycin, and add in ceftazidime as this is the only other cephalosporinwe have for gram negatives. The patient will transferred to the local emergency room. He needs admission to the hospital in hospital where dialysis can be done. We will call [facility] to see if they can accept him in transfer. documented in this encounter Plan of Treatment Not on file documented as of this encounter Visit Diagnoses Not on filedocumented in this encounter Care Teams Leader Tier Relationship Specialty Start Date End Date Jarad Keller DNP PCP - General Family Medicine 06/05/18 02/09/21 documented as of this encounter
--- OUTSIDE RECORDS SUMMARY | 2023-12-28 16:40 | XMS_ITS | Encounter Summary ---
Author Organization [facility] [place] [address] Care Team Providers Care Contract Modeler Name Role Phone Ej Duran MD Primary Care Provider [phone] Reason for Visit * Reason Comments Blurred Vision The patient presents for postoperative evaluation of the right eye. ESTRELLA Hardy Encounter Details Date Type Department Care Team (Late st Contact Info) Description 10/10/2012 1:00 PM EDT Office [place] [address] Matteo Diane MD [facility] [address] [place] [address] Vitreous hemorrhage, right eye (Primary Dx); Proliferative diabetic retinopathy, both eyes; Hyperopia; Diabetes mellitus; Cataract. Dense with synechiae. Right eye.; Acute angle-closure glaucoma of right eye Discharge Disposition: Home Social History Tobacco Use Types Packs/Day Years Used Date Smoking Tobacco: Former Comments:stopped 25 years ag o Alcohol Use Standard Drinks/Week Comments No 0 (1 standard drink = 0.6 oz pur e alcohol) not daily Sex and Gender Information Value Date Recorded Sex Assigned at Not on file Gender Identity Not on file Sexual Orientation Not on file documented as of this encounter Progress Notes * Matteo Diane MD - 10/10/2012 1:19 PM EDT With respect of this gentleman his left eye he has a dense cataract and his proliferative disease under control. Central macular architecture reveals no edema In the right eye he has severe and profound ischemia and surgery was delayed by virtue of severe morbidity and risks for anesthesia. He status post complex vitrectomy and and postoperative angle closure. Peripheral traction noted temporally follow carefully. If progression consider repeat vitrectomy Return to weeks or sooner as needed documented in this encounter Plan of Treatment Not on file documented as of this encounter Visit Diagnoses Diagnosis Vitreous hemorrhage, right eye- Primary Vitreous hemorrhage Proliferative diabetic retinopathy, both eyes Type II or unspecified type diabetes mellitus with ophthalmic manifestations, not stated as uncontrolled Hyperopia Hypermetropia Diabetes mellitus Type II or unspecified type diabetes mellitus without mention of complication, not stated as uncontrolled Cataract. Dense with synechiae. Right eye. Unspecified cataract Acute angle-closure glaucoma of right eye Acute angle-closure glaucoma documented in this encounter Care Teams Contract Modeler Relationship Specialty Start Date End Date Ej Duran MD [address] [place] [address] PCP - General 10/28/11 06/04/18 documented as of this encounter
--- OUTSIDE RECORDS SUMMARY | 2023-12-28 16:40 | XMS_ITS | Encounter Summary ---
Author Organization [facility] [place] [address] Care Team Providers Care Manager Country Name Role Phone Ej Duran MD Primary Care Provider Reason for Visit * Reason Comments Eye Problem PT STATES HERE FOR E RACHEL OF PAIN OD, Encounter Details Date Type Department Care Team (Late st Contact Info) Description 02/19/2013 2:30 PM EDT Office [place] [address] Young Duff MD [facility] [place] [address] Eye pain; Proliferative diabetic retinopathy, both eyes Discharge Disposition: Home Social History Tobacco Use [...] this encounter Patient Instructions * Patient Instructions* Young Duff MD - 02/19/2013 3:26 PM EDT Use eye medications as instructed by Dr. Duff during your appointment. For non eye medications not prescribed by the Ophthalmology (Eye) Clinic, please follow up with your PCP (primary care provider) for instructions. Please call the eye clinic, [phone], for any significant changes in vision, new flashes or floaters or eye pain documented in this encounter Progress Notes * Young Duff MD - 02/19/2013 3:22 PM EDT Encounter Diagnoses Name Primary? Eye pain ??? Proliferative diabetic retinopathy, both eyes Maurice Rudolph is a 52 y.o. seen as DOC pt for periocular eye pain for a week OD which is somewhat responsive to motrin and ice. He is status post complex vitrectomy for severe and profound ischemia right eye with limited visual potential. There are no changes in his ocular exam to suggest a source for this pain- specifically no signs of infection, inflammation or elevation in IOP. He is tenderto percussion over his maxillary and frontal sinus on the right - so his symptoms may represent sinusitis. Plan: - To contact his pcp Dr. Hess for evaluation of possible sinusitis - Continue current eye drops, - Follow up 1-[address] Diane or as needed - Findings and concerns discussed with Maurice and he expressed understanding. Discussed case with . This note to him and Dr. Hess. documented in this encounter Plan of Treatment Not on file documented as of this encounter Visit Diagnoses Diagnosis Eye pain Pain in or around eye Proliferative diabetic retinopathy, both eyes Type II or unspecified type diabetes mellitus with ophthalmic manifestations, not stated as uncontrolled documented in this encounter Care Teams Manager Country Relationship Specialty Start Date End Date Ej Duran MD [address] [place] [address] PCP - General 10/28/11 06/04/18 documented as of this encounter
--- OUTSIDE RECORDS SUMMARY | 2023-12-28 16:40 | XMS_ITS | Encounter Summary ---
Author Organization [facility] [place] [address] Care Team Providers Care Research Technician Name Role Phone Ej Duran MD Primary Care Provider [phone] Reason for Visit * Reason Comments Hyperopia 6 week follow up Diabetes BS was 180 as of yes terday AM Encounter Details Date Type Department Care Team (Late st Contact Info) Description 05/08/2013 2:15 PM EST Office [place] [address] Matteo Diane MD [facility] [place] [address] Proliferative diabetic retinopathy, both eyes (Primary Dx) Discharge Disposition: Home Social History Tobacco Use [...] Progress Notes * Matteo Diane MD - 05/08/2013 3:44 PM EST In the right eye, retinas perfectly stable under silicone oil. Return 4 weeks for consideration of silicone oil removal. Severe and profound visual loss owing to severe ischemic tractional detachmentwith delayed presentation.. Left eye currently stable. No evidence of recurrent edema. No evidence of edema on the CT scan left eye. documented in this encounter Plan of Treatment Not on file documented as of this encounter Visit Diagnoses Diagnosis Proliferative diabetic retinopathy, both eyes- Primary Type II or unspecified type diabetes mellitus with ophthalmic manifestations, not stated as uncontrolled documented in this encounter Care Teams Research Technician Relationship Specialty Start Date End Date Ej Duran MD [address] [place] [address] PCP - General 10/28/11 06/04/18 documented as of this encounter
--- OUTSIDE RECORDS SUMMARY | 2023-12-28 16:40 | XMS_ITS | Encounter Summary ---
Author Organization [facility] [place] [address] Care Team Providers Care Die Stamping Press Operator Name Role Phone Ej Duran MD Primary Care Provider [phone] Reason for Visit * Reason Comments Post Op 1 day post op.OD () Encounter Details Date Type Department Care Team (Late st Contact Info) Description 01/09/2013 12:30 PM EDT Office [place] [address] Matteo Diane MD [facility] DR [place]AL[place] [address] Proliferative diabetic retinopathy, both eyes. Status post repair of tractional retinal detachment 01/08/13; Hyperopia; Diabetes mellitus; HTN (hypertension); Acute angle-closure glaucoma of right eye; Cataract of left eye; Ocular hypertension of right eye. Postop Discharge Disposition: Home Social History Tobacco Use [...] Progress Notes * Matteo Diane MD - 01/09/2013 1:09 PM EDT 1. Proliferative diabetic retinopathy, both eyes. Status post repair of tractional retinal detachment 01/08/13 2. Hyperopia 3. Diabetes mellitus 4. HTN (hypertension) 5. Acute angle-closure glaucoma of right eye 6. Cataract of left eye 7. Ocular hypertension of right eye. Postop Cosopt twice a day. Pred Forte and Vigamox each 4 times a day. Ointment at night. Call immediately if severe pain nausea vomiting or other related symptoms. The retina is nicely attached and there is only minimal bleeding at the edge of the retinectomy site. No oil migration into the anterior chamber seen. Anterior chamber is deep. Returned 5-6 days. Call if severe pain, nausea vomiting or other related concerns. History of angle-closure in the past when patient was phakic. Currently pseudophakic with a peripheral iridectomy Matteo Diane M.D. documented in this encounter Plan of Treatment Not on file documented as of this encounter Visit Diagnoses Diagnosis Proliferative diabetic retinopathy, both eyes. Status post repair of tractional retinal detachment 01/08/13 Type II or unspecified type diabetes mellitus with ophthalmic manifestations, not stated as uncontrolled Hyperopia Hypermetropia Diabetes mellitus Type II or unspecified type diabetes mellitus without mention of complication, not stated as uncontrolled HTN (hypertension) Unspecified essential hypertension Acute angle-closure glaucoma of right eye Acute angle-closure glaucoma Cataract of left eye Unspecified cataract Ocular hypertension of right eye. Postop Borderline glaucoma with ocular hypertension documented in this encounter Care Teams Die Stamping Press Operator Relationship Specialty Start Date End Date Ej Duran MD [address] [place] [address] PCP - General 10/28/11 06/04/18 documented as of this encounter
--- OUTSIDE RECORDS SUMMARY | 2023-12-28 16:40 | XMS_ITS | Encounter Summary ---
Author Organization [facility] [place] [address] Care Team Providers Care Tank Furnace Operator Name Role Phone Ej Duran MD Primary Care Provider [phone] Encounter Details Date Type Department Care Team (Late st Contact Info) Description 07/31/2012 7:26 AM EDT Anesthesia Event Main [place] [address] Giovanni Sykes MD [facility] DR [place] [address] Carmelina Carnes CRNA [facility] DR [place] [address] Anesthesia Record Procedure Summary Procedure Name Responsible Anesthesiologist Anesthesia Start Time Anesthesia Stop Time REPAIR COMPLEX RETINAL DETACH W/VITRECTOMY, MEMBRANE PEELING, DRAINAGE (WRVU 19) (Right: Eye) Giovanni Sykes MD 07/31/12 0726 07/31/12 0907 Events Date Time Event Comment 07/31/2012 0703 0726 Start 0726 Anesthesia Ready 0726 Quick Note Temp 36.5 room warmed,blankets on 0731 AN Verify 0731 An Start Data 0737 An Induction 0755 Procedure Start 0855 Procedure Stop 0855 an stop data 0907 Stop Meds Name Total Midazolam 2 mg propofol 80 mg Ondansetron 4 mg sodium chloride 0.9% 900 mL * Agents Name O2 Air O2 Auxiliary Flowmeter 1 * Blood No blood administrations on file. Lines, Drains, and Airways Type Details Placement Removal Incision 04/03/12; 1013; eye; 12/28/21 (LDA cleanup utility RA#[id number]); 1715 (LDA cleanup utility RA#[id number]) 04/03/12 1013 by Era Braden RN 12/28/21 1715 by Morgan Wong Incision 07/18/12; eye; 12/28/21 (LDA cleanup utility RA#[id number]); 1715 (LDA cleanup utility RA#[id number]) 07/18/12 0000 by Giovana Lake 12/28/21 1715 by Morgan Wong Incision 07/31/12; eye; 12/28/21 (LDA cleanup utility RA#[id number]); 1715 (LDA cleanup utility RA#[id number]) 07/31/12 0000 by Ear Braden RN 12/28/21 1715 by Morgan Wong (RETIRED) Peripheral IV Line - Single Lumen 07/31/12; 0656; 07/31/12; 0939 07/31/12 0656 by Damion Nolan RN 07/31/12 0939 by Kimani Solano RN documented in this encounter Social History [...] OR Notes * Anesthesia Postprocedure Evaluation - Giovanni Sykes MD - 07/31/2012 10:26 AM EDT Patient: Maurice Rudolph Procedure(s) Performed: Procedure(s): REPAIR COMPLEX RETINAL DETACHMENT, W/ VITRECTOMY, MEMBRANE PEELING Actual Anesthetic: general Patient location: PACU Post-op pain: Adequate analgesia Post-op nausea: no nausea or vomiting Last Vitals: Filed Vitals: 07/31/12 0924 BP: 130/68 Pulse: 84 Temp: Resp: 16 Post-op cardiovascular and respiratory status: is stable Level of consciousness: awake, alert and oriented Complications: no apparent complications Fluid Status: normal * Anesthesia Preprocedure Evaluation - Giovanni Sykes MD - 07/31/2012 6:47 AM EDT Today I evaluated Maurice Rudolph a 52 y.o. male. Procedure(s): VITRECTOMY, MECHANICAL PARS PLANA APPROACH Patient Active Problem List Diagnoses ??? Cataract. Dense with synechiae. Right eye. ??? Hyperopia ??? Acute angle-closure glaucoma of right eye ??? HTN (hypertension) ??? GERD (gastroesophageal reflux disease) ??? Vitreous hemorrhage, right eye ??? Proliferative diabetic retinopathy, both eyes ??? Diabetes mellitus Past Medical History Diagnosis Date ??? Diabetes mellitus ??? DM eyes ??? Arthritis ??? Anxiety ??? Hyperlipidemia ??? Hypertension ??? Neuromuscular disorder ??? GERD (gastroesophageal reflux disease) no regular tx ??? Difficult intubation Two attempts (Mac3 and Bajwa 3 successful x 1 attempt. Suggest videolaryngoscope would be easier for future. ??? Complication of anesthesia Had ?laryngospasm post extubation in OR 04/03/12, requrring brief reintubation. ??? 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 Cataract. Dense with synechiae. Right eye. 06/21/2012 Past Surgical History Procedure Date ? ? Repair complex retina detach vitrectomy & memb peel 04/03/2012, 04/03/12 REPAIR COMPLEX RETINAL DETACHMENT, W/ VITRECTOMY, MEMBRANE PEELING performed by Matteo Diane MD at [facility] MAIN OR ??? Peripheral iridotomy 04/06/2012 OD [place] ??? Tx extensive retinopathy, photocoagulation 07/06/2011 OS CBC ??? Tx extensive retinopathy, photocoagulation 07/27/2011 OS CBC ??? Tx extensive retinopathy, photocoagulation 09/21/2011 OS CBC ??? Tx extensive retinopathy, photocoagulation 12/20/2011 OS MANN ??? Tx extensive retinopathy, photocoagulation 01/04/2012 OS MANN ??? Cataract removal 07/18/12 OS [place] ??? Remv cataract extracap,insert lens,comp 07/18/2012 CATARACT EXTRACTION, EXTRACAPSULAR, WITH LENS INSERTION, COMPLEX performed by Phillip Schwartz MD at [facility] OSC ??? Vitrectomy, w/ membrane stripping 04/03/2012 OD, CBC History Substance Use Topics ??? Smoking status: Former Smoker ??? Smokeless tobacco: Not on file Comment: stopped 25 years ago ??? Alcohol Use: No not daily Allergies Allergen Reactions ??? Penicillins Other (See Comments) FACIAL SWELLING Medications: MAR and/or home medications have been reviewed. Physical Exam: There were no vitals filed for this visit. There is no height or weight on file to calculate BMI. Anesthesia Physical Exam Anesthesia Plan: ASA 3 general, with a(n) intravenous induction 52yo 95kg male w/ Diabetic retinopathy and hemorrhage DIFFICULT INTUBATION in past - glide scope recommended Post extubation laryngospasm in april DM, GERD, HTN For MAC today Did well last procedure with preop Midazolam 2mg then sleep dose of propofol for block (50mg) Remote Hx SVT - no episodes recently Region - Other Informed Consent: Anesthetic plan and risks discussed with patient. Plan discussed with RECRUITMENT ASSISTANT. Keshawn. Assessment: documented in this encounter Plan of Treatment Not on file documented as of this encounter Visit Diagnoses Not on filedocumented in this encounter Administered Medications Inactive Administered Medications - up to 3 most recent administrations Medication Order MAR Action Action Date Dose Rate Site midazolam (VERSED) injection PRN, Starting on Tue07/31/12 at 0731, Until Tue07/31/12 at 0908, Sleep, Anesthesia Intra-op, Routine Given 07/31/2012 7:31 AM EDT 2 mg ondansetron (ZOFRAN) injection PRN, Starting on Tue07/31/12 at 0741, Until Tue07/31/12 at 0908, Nausea, Anesthesia Intra-op, Routine Given 07/31/2012 7:41 AM EDT 4 mg propofol (DIPRIVAN) 10 mg/mL bolus injection (Anesthesia) PRN, Starting on Tue07/31/12 at 0737, Until Tue07/31/12 at 0908, Anesthesia Intra-op Given 07/31/2012 8:39 AM EDT 20 mg Given 07/31/2012 7:37 AM EDT 60 mg sodium chloride 0.9% infusion CONTINUOUS PRN, Starting on Tue07/31/12 at 0726, Until Tue07/31/12 at 0908, Anesthesia Intra-op New Bag 07/31/2012 7:26 AM EDT mL documented in this encounter Care Teams Tank Furnace Operator Relationship Specialty Start Date End Date Ej Duran MD [address] [place] [address] PCP - General 10/28/11 06/04/18 documented as of this encounter
--- OUTSIDE RECORDS SUMMARY | 2023-12-28 16:40 | XMS_ITS | Encounter Summary ---
[place] [address] Care Team Providers Care Machine Shop Apprentice Name Role Phone Ej Duran MD Primary Care Provider [phone] Reason for Visit * Reason Comments Procedure YAG CAP OS Encounter Details Date Type Department Care Team (Latest Contact Info) Description 11/15/2013 12:30 PM EDT Procedure [place] [address] Erasmo Bajwa MD [facility] [place] [address] PCO (posterior capsular opacification), left (Primary Dx) Discharge Disposition: Home Social History [...] as of this encounter Progress Notes * Erasmo Bajwa MD - 11/15/2013 1:19 PM EDT See Study Review documented in this encounter Plan of Treatment Not on file documented as of this encounter Procedures Procedure Name Priority Date/Time Associated Diagnosis Comments CAPSULOTOMY-YAG LASER - OS - LEFT EYE Routine 11/15/2013 1:19 PM EDT PCO (posterior capsular opacification), left documented in this encounter Results * Capsulotomy - Yag Laser - OS - Left Eye (11/15/2013 1:19 PM EDT) Anatomical Region Laterality Modality Other Narrative 11/15/2013 1:19 PM EDT Procedure: ?YAG Capsulotomy ??left eye Diagnosis: ?? Opacified posterior lens capsule Location of procedure: ??[facility] Surgeon: ?Erasmo Bajwa MD Pre-procedure drops: ??0.5% Iopidine, prednisolone 1% Post-procedure drops: 0.5% Iopidine, prednisolone 1% Indication: The patient is status post cataract surgery in the left eye and developed posterior capsular opacity limiting their vision and producing glare. ??The decision was made to try to improve their vision with YAG capsulotomy. ??We discussed the risks, benefits and alternatives to this treatment, answered Maurice's questions and he signed the consent form. Procedure: ??The operative eye was marked. The patient was taken to the laser room. A posterior capsulotomy was performed in a cross pattern. Maurice tolerated the procedure well and no problems were observed during the procedure. Number of pulses: ?? 22 Energy per pulse: ?? 2.8 millijoules Post Op Exam: The IOL was stable, the retina was attached and there was mild anterior chamber inflammation. Post operative instructions: ?? 1. Prednisolone acetate drops 4 times a day for 4 days in the operative eye. ?? 2. Return for follow up visit within 1 month 3. Call with any problems, particularly flashes, floaters, pain, decreased vision or photophobia. Procedure Note Erasmo Bajwa MD - 11/15/2013 Procedure: YAG Capsulotomy left eye Diagnosis: Opacified posterior lens capsule Location of procedure: [facility] Surgeon: Erasmo Bajwa MD Pre-procedure drops: 0.5% Iopidine, prednisolone 1% Post-procedure drops: 0.5% Iopidine, prednisolone 1% Indication: The patient is status post cataract surgery in the left eyeand developed posterior capsular opacity limiting their vision andproducing glare. The decision was made to try to improve their visionwith YAG capsulotomy. We discussed the risks, benefits and alternativesto this treatment, answered Maurice's questions and he signed the consentform. Procedure: The operative eye was marked. The patient was taken to thelaser room. A posterior capsulotomy was performed in a cross pattern. Marktolerated the procedure well and no problems were observed during theprocedure. Number of pulses: 22 Energy per pulse: 2.8 millijoules Post Op Exam: The IOL was stable, the retina was attached and there wasmild anterior chamber inflammation. Post operative instructions: 1. Prednisolone acetate drops 4 times a day for 4 days in the operativeeye. 2. Return for follow up visit within 1 month 3. Call with any problems, particularly flashes, floaters, pain, decreasedvision or photophobia. Erasmo Bajwa MD OPHTHALMOLOGY SERVIC ES ORDERABLES documented in this encounter Visit Diagnoses Diagnosis PCO (posterior capsular opacification), left- Primary After-cataract, unspecified documented in this encounter Care Teams Machine Shop Apprentice Relationship Specialty Start Date End Date Ej Duran MD [address] [place] [address] PCP - General 10/28/11 06/04/18 documented as of this encounter
--- OUTSIDE RECORDS SUMMARY | 2023-12-28 16:40 | XMS_ITS | Encounter Summary ---
Author Organization [facility] [place] [address] Care Team Providers Care School Speech Language Pathologist Name Role Phone Ej Duran MD Primary Care Provider [phone] Encounter Details Date Type Department Care Team (Latest Contact Info) Description 11/29/2012 10:18 AM EDT - 11/29/2012 12:58 PM EDT Hospital Encounter [place] [place] [address] Gabe Bajwa MD [facility] [place] [address] Cataract (Primary Dx) Discharge Disposition: Home Social History [...] Sign Reading Time Taken Comments Blood Pressure 133/71 11/29/2012 12:43 PM EDT Pulse 91 11/29/2012 12:43 PM EDT Temperature 36.8 ??C (98.2 ??F) 11/29/2012 12:43 PM E DT Respiratory Rate 18 11/29/2012 12:43 PM EDT Oxygen Saturation 97% 11/29/2012 12:43 PM EDT Inhaled Oxygen Concentration - - Weight 103.4 kg (228 lb) 11/29/2012 10:34 AM EDT Height 162.6 cm (5' 4) 11/29/2012 10:34 AM EDT Body Mass Index 39.14 11/29/2012 10:34 AM EDT documented in this encounter Discharge Instructions * Discharge Instructions* Makenzie Viramontes RN - 11/29/2012 12:21 PM EDT Home Care Instructions after Cataract Surgery Do not remove the eye patch or shield, unless instructed to do so. Take it easy today. Avoid strenuous activities. Bring your eye drops and the Eye Care Kit with you to each visit after your surgery. Resume all your regular medicines. It is normal to have a scratchy sensation or mild pain in your eye. If you develop vomiting or severe pain not relieved with medication please call. Your appointment with Dr. Bajwa is in the Eye Clinic Desk 4B tomorrow. You may have received medication before and/or during your procedure, which affect your judgement and reaction time therefore for the next 24 hours: You may be unsteady on your feet, be careful on stairs. Do not smoke if you are alone. Do not drink alcoholic beverages. Do not drive or operate any type of machinery. Do not make important legal decisions. If you are having any problems or additional concerns or questions please call: [phone] 8am to5pm. After 5pm, please call [phone] and ask for opthalmology MD construction project coordinator. documented in this encounter Medications at Time of Discharge Medication Sig Dispensed Refills Start Date End Date gabapentin (NEURONTIN) 300 mg capsule Take 300 mg by mouth 3 times daily. sertraline (ZOLOFT) 25 mg tablet Take 50 mg by mouth daily. furosemide (LASIX) 20 mg tabletIndications:froylan ma Take 20 mg by mouth daily. Indications: Edema 06/08/2018 dorzolamide-timolol (COSOPT) 2-0.5 % ophthalmic solution Place 1 drop into the right eye 2 times daily. 10 mL 3 06/21/2012 12/06/2012 lisinopril-hydrochlor othiazide (PRINZIDE;ZESTORETIC) 20-25 mg per tablet Take 2 tablets by mouth 2 times daily. 06/08/2018 multivitamin (THERAGRAN) tablet Take 1 tablet by mouth daily. 06/08/2018 aspirin 81 mg EC tablet Take 81 mg by mouth daily. 06/08/2018 insulin glargine (LANTUS) 100 unit/mL vial injection Inject 40 Units subcutaneously nightly. 10/20/19 insulin aspart (NOVOLOG) 100 unit/mL vial injection Inject subcutaneously 3 times daily (with meals). 08/18/2018 metoprolol succinate (TOPROL-XL) 25 mg 24 hr tablet Take 25 mg by mouth daily. 06/08/2018 amlodipine (NORVASC) 5 mg tablet Take 5 mg by mouth daily. 06/08/2018 pravastatin (PRAVACHOL) 40 mg Tablet Take 40 mg by mouth daily. 01/15/2022 metFORMIN (GLUCOPHAGE XR) 500 mg 24 hr tablet 1000MG, PO, Twice daily 06/23/200610/2018 documented as of this encounter H&P Notes * Gabe Bajwa MD - 11/29/2012 12:03 PM EDT Maurice Rudolph reports no new symptoms or other change in his health since his preoperative history and physical exam was performed less than 30 days ago. His exam reveals no significant changes. * Gabe Bajwa MD - 11/29/2012 12:03 PM EDT See H&P from Ej Duran documented in this encounter Miscellaneous Notes * OR Attestation - Gabe Bajwa MD - 11/29/2012 12:41 PM EDT Attestation: Case Date: 11/29/2012 I performed this procedure without the participation of a resident. GABE BAJWA MD 11/29/2012 * Op Note - Gabe Bajwa MD - 11/29/2012 12:41 PM EDT Pre-op diagnosis: Nuclear sclerotic cataract, left eye Diabetic macular edema, left eye Post-op diagnosis: Same Surgeon: Gabe Bajwa MD Name of procedure: Phacoemulsification of cataract with posterior chamber intraocular lens implant,left eye Anesthesia: Subtenons retrobulbar block, IV sedation Description of procedure: The left eye was marked preoperatively. A latex-free procedure was performed. The patient was brought into the operating suite, positioned in the supine position, and the patient's identity was verified by the surgeon and operative team. Monitors were placed by the flare stitcher. Topical anaesthetic was placed in the left eye. The patient's left eye was prepped with Betadine, including a drop of Betadine in the cul-de-sac. The eye was draped in the usual fashion for intraocular surgery, isolating the eyelashes from the surgical field. An open wire lid speculum was placed. The operating microscope was positioned. A buttonhole incision was made in conjunctiva and tenons capsule in the inferotemporal quadrant. Bleeders cauterized. Subtenons retrobulbar anesthesia was administered through a cannula with 2.5cc of2% lidocaine mixed with 0.75% bupivicaine. Adequate anesthesia was obtained. A superior conjunctival peritomy was made, followed by gentle hemostasis with eraser-tip bipolar cautery. A half-thickness scleral groove incision was made 1mm posterior to the limbus. The eye was entered at the 95 degree meridian with a 2.6mm keratome. A limbal stab incision was made at 2:00. Aqueous was exchanged for Provisc. A continuous curvilinear capsulorhexis was made with a cystotome. Thelens was loosened with hydrodissection. Viscoat was instilled to coat the corneal endothelium. The nucleus was emulsified with the phacoemulsification handpiece in a puynok-fvy-wvwoltx fashion. Residual cortical material was removed with the automated irrigation/aspiration unit. The posterior capsule was polished. The capsular bag was inflated with viscoelastic. An Olayinka Model SN60WF posterior chamber lens with a 6mm acrylic optic was inspected and found to be without defects, placed in the [place] installation service representative cartridge, and injected into the capsular bag without difficulty. The lens was secure and well-centered. Viscoelastic was thoroughly removed with the irrigation/aspiration handpiece. T he anterior chamber was filled with BSS to normal intraocular pressure. The wounds were checked forleakage and there was none. Conjunctiva was closed with cautery. One drop of Vigamox, Cosopt, and Maxitrol ointment were instilled, followed by a patch and shield over the operated eye. The patient was taken to [facility] in stable condition. Lens: Olayinka SN60WF +27.0 diopter PCIOL EBL: <1cc Complications: none * Miscellaneous - Provider, Scanning - 11/29/2012 11:05 AM EDT documented in this encounter Plan of Treatment Not on file documented as of this encounter Procedures Procedure Name Priority Date/Time Associated Diagnosis Comments CATARACT EXTRACTION, EXTRACAPSULAR, W/ LENS INSERTION (WRVU 7.35) 11/29/2012 12:03 PM EDT Cataract POCT FINGERSTICK GLUCOSE Routine 11/29/2012 10:52 AM EDT documented in this encounter Results * POCT Fingerstick Glucose (11/29/2012 10:52 AM EDT) Glucose, POC 170 60 - 199 mg/dl Blood specimen (specimen) 11/29/2012 10:52 AM EDT Gabe Bajwa MD POINT OF CARE TEST O RDERABLES documented in this encounter Visit Diagnoses Diagnosis Cataract- Primary Unspecified cataract documented in this encounter Administered Medications Inactive Administered Medications - up to 3 most recent administrations Medication Order MAR Action Action Date Dose Rate Site cyclopentolate (CYCLODRYL) 1 % ophthalmic solution 1 drop 1 drop, Left Eye, EVERY 5 MIN, 3 doses, First dose on Tue11/29/12 at 1100, Last dose on Tue11/29/12 at 1110, 1 drop to the operative eye every 5 minutes times 3. Start day of surgery, Day of Surgery (Day of Procedure), Routine Given 11/29/2012 11:10 AM EDT 1 drop Given 11/29/2012 11:05 AM EDT 1 drop Given 11/29/2012 11:00 AM EDT 1 drop ketorolac tromethamine (ACULAR) 0.5 % ophthalmic solution 1 drop 1 drop, Left Eye, ONCE, 1 dose, On Tue11/29/12 at 1100, 1 drop to the operative eye once, start on day of surgery, Day of Surgery (Day of Procedure), Routine Given 11/29/2012 11:00 AM EDT 1 drop lactated ringers infusion 1,000 mL 1,000 mL, at 100 mL/hr, Intravenous, CONTINUOUS, Starting on Tue11/29/12 at 1100, Until Tue11/29/12 at 1502, Day of Surgery (Day of Procedure) New Bag 11/29/2012 11:00 AM EDT 1,000 mLs 100 mL/hr moxifloxacin (VIGAMOX) 0.5 % ophthalmic solution 1 drop 1 drop, Left Eye, EVERY 5 MIN, 3 doses, First dose on Tue11/29/12 at 1100, Last dose on Tue11/29/12 at 1110, 1 drop to the operative eye every 5 minutes times 3. Start on the day of surgery. , Day of Surgery (Day of Procedure), Routine Given 11/29/2012 11:10 AM EDT 1 drop Given 11/29/2012 11:05 AM EDT 1 drop Given 11/29/2012 11:00 AM EDT 1 drop PHENYLephrine (MYDFRIN) 2.5 % ophthalmic solution 1 drop 1 drop, Left Eye, EVERY 5 MIN, 3 doses, First dose on Tue11/29/12 at 1100, Last dose on Tue11/29/12 at 1110, 1 drop to the operative eye every 5 minutes times 3. Start on the day of surgery. , Day of Surgery (Day of Procedure), Routine Given 11/29/2012 11:10 AM EDT 1 drop Given 11/29/2012 11:05 AM EDT 1 drop Given 11/29/2012 11:00 AM EDT 1 drop prednisoLONE acetate (PRED FORTE) 1 % ophthalmic suspension 1 drop 1 drop, Left Eye, ONCE, 1 dose, On Tue11/29/12 at 1100, 1 drop to the operative eye once, start on day of surgery, Day of Surgery (Day of Procedure), Routine Given 11/29/2012 11:00 AM EDT 1 drop documented in this encounter Active and Recently Administered Medications Times are shown in EDT. Scheduled Medication Order 11/27/2012 11/28/2012 11/29/2012 cyclopentolate (CYCLODRYL) 1 % ophthalmic solution 1 drop (COMPLETED) 1 drop, Left Eye, EVERY 5 MIN, 3 doses, First dose on Tue11/29/12 at 1100, Last dose on Tue11/29/12 at 1110, 1 drop to the operative eye every 5 minutes times 3. Start day of surgery, Day of Surgery (Day of Procedure), Routine 1100 (Given - Provid er: Makenzie Viramontes RN)1105 (Given - Provider: Makenzie Viramontes RN)1110 (Given - Provider: Makenzie Viramontes RN) ketorolac tromethamine (ACULAR) 0.5 % ophthalmic solution 1 drop (COMPLETED) 1 drop, Left Eye, ONCE, 1 dose, On Tue11/29/12 at 1100, 1 drop to the operative eye once, start on day of surgery, Day of Surgery (Day of Procedure), Routine 1100 (Given - Provid er: Makenzie Viramontes RN) moxifloxacin (VIGAMOX) 0.5 % ophthalmic solution 1 drop (COMPLETED) 1 drop, Left Eye, EVERY 5 MIN, 3 doses, First dose on Tue11/29/12 at 1100, Last dose on Tue11/29/12 at 1110, 1 drop to the operative eye every 5 minutes times 3. Start on the day of surgery. , Day of Surgery (Day of Procedure), Routine 1100 (Given - Provid er: Makenzie Viramontes RN)1105 (Given - Provider: Makenzie Viramontes RN)1110 (Given - Provider: Makenzie Viramontes RN) PHENYLephrine (MYDFRIN) 2.5 % ophthalmic solution 1 drop (COMPLETED) 1 drop, Left Eye, EVERY 5 MIN, 3 doses, First dose on Tue11/29/12 at 1100, Last dose on Tue11/29/12 at 1110, 1 drop to the operative eye every 5 minutes times 3. Start on the day of surgery. , Day of Surgery (Day of Procedure), Routine 1100 (Given - Provid er: Makenzie Viramontes RN)1105 (Given - Provider: Makenzie Viramontes RN)1110 (Given - Provider: Makenzie Viramontes RN) prednisoLONE acetate (PRED FORTE) 1 % ophthalmic suspension 1 drop (COMPLETED) 1 drop, Left Eye, ONCE, 1 dose, On Tue11/29/12 at 1100, 1 drop to the operative eye once, start on day of surgery, Day of Surgery (Day of Procedure), Routine 1100 (Given - Provid er: Makenzie Viramontes RN) Continuous Medication Order 11/27/2012 11/28/2012 11/29/2012 lactated ringers infusion 1,000 mL (CANCELED) 1,000 mL, at 100 mL/hr, Intravenous, CONTINUOUS, Starting on Tue11/29/12 at 1100, Until Tue11/29/12 at 1502, Day of Surgery (Day of Procedure) 1100 (New Bag - Prov ider: Makenzie Viramontes RN) documented in this encounter Care Teams School Speech Language Pathologist Relationship Specialty Start Date End Date Ej Duran MD [address] [place] [address] PCP - General 10/28/11 06/04/18 documented as of this encounter
--- OUTSIDE RECORDS SUMMARY | 2023-12-28 16:40 | XMS_ITS | Encounter Summary ---
Author Organization [facility] [place] [address] Care Team Providers Care Volleyball Referee Name Role Phone Ej Duran MD Primary Care Provider [phone] Encounter Details Date Type Department Care Team (Late st Contact Info) Description 01/08/2013 7:31 AM EDT Anesthesia [place] [address] Alissa Muse MD [facility] [place] [address] Mariajose Wilkinson MD [facility] [place] [address] Anesthesia Record Procedure Summary Procedure Name Responsible Anesthesiologist Anesthesia Start Time Anesthesia Stop Time REPAIR COMPLEX RETINAL DETACH W/VITRECTOMY, MEMBRANE PEELING, DRAINAGE (WRVU 19) (Right: Eye) Alissa Muse MD 01/08/13 0731 01/08/13 0955 Events Date Time Event Comment 01/08/2013 0719 0729 AN Verify 0731 Start 0731 An Start Data 0740 An Induction 0743 An Intubation 0752 Anesthesia Ready 0948 Extubation/LMA Out 0951 an stop data 0955 Stop Meds Name Total fentaNYL 50 mcg propofol 200 mg PHENYLephrine 400 mcg ePHEDrine 5 mg succinylcholine 160 mg metoprolol (LOPRESSOR) injection 7.5 mg lactated ringers 400 mL * Agents Name O2 Air Sevoflurane (et) * Blood No blood administrations on file. [...] 1715 by Morgan Wong Incision 01/08/13; eye; 12/28/21 (LDA cleanup utility RA#[id number]); 1715 (LDA cleanup utility RA#[id number]) 01/08/13 0000 by Lynda Thompson RN 12/28/21 1715 by Morgan Wong (RETIRED) Peripheral IV Line - Single Lumen 01/08/13; 0707; 01/08/13; 1123 01/08/13 0707 by Maggie Choudhury RN 01/08/13 1123 by Yashira Lai RN (RETIRED) Non-Surgical Airway Mask Ventilation: Difficult (3); ETT Type: Cuffed, GARRY, Oral; ETT Size: 7.5 mm; Oral Airway: 100 mm (5); Removal Date: 01/08/13; Removal Time: 94701/08/13 0800 by 01/08/13947 by Mariajose Wilkinson MD documented in this encounter Social History Tobacco [...] OR Notes * Anesthesia Postprocedure Evaluation - Alissa Muse MD - 01/09/2013 4:53 PM EDT Patient: Maurice Gurrola Rudolph Procedure(s) Performed: Procedure(s): REPAIR COMPLEX RETINAL DETACHMENT, W/ VITRECTOMY, MEMBRANE PEELING Post anesthesia note The patient has been seen in the post anesthetic period. There are no apparent complications. Nausea/vomiting and pain are either not an issue or are being treated. The patient is hemodynamically stable and appears to have an appropriate intravascular volume status. * Anesthesia Postprocedure Evaluation - Mariajose Wilkinson - 01/08/2013 12:24 PM EDT Patient: Maurice A Rudolph Procedure(s) Performed: Procedure(s): REPAIR COMPLEX RETINAL DETACHMENT, W/ VITRECTOMY, MEMBRANE PEELING Actual Anesthetic: general, MAC Patient location: PACU Post-op pain: Adequate analgesia Post-op nausea: no nausea or vomiting Last Vitals: Filed Vitals: 01/08/13 1105 BP: 174/77 Pulse: 84 Temp: Resp: Post-op cardiovascular and respiratory status: is stable Level of consciousness: awake, alert and oriented Complications: no apparent complications and tolerated the procedure well Fluid Status: normal * Anesthesia Preprocedure Evaluation - EneidaaaronMariajose Eliane - 01/07/2013 4:28 PM EDT Pre-Anesthesia Evaluation for: Maurice Rudolph a 52 y.o. male. Procedure(s): VITRECTOMY, W/ MEMBRANE STRIPPING Patient Active Problem List Diagnosis ??? Ischemic Diabetic Maculopathy ??? Proliferative diabetic retinopathy ??? IDDM (insulin dependent diabetes mellitus) ??? Cataract of left eye ??? Cataract. Dense with synechiae. Right eye. [...] PEELING performed by Matteo Diane MD at [facility] MAIN OR ??? Peripheral iridotomy 04/06/2012 OD [place] ??? Tx extensive retinopathy, photocoagulation 07/06/2011 OS [facility] ??? Tx extensive retinopathy, photocoagulation 07/27/2011 OS [facility] ??? Tx extensive retinopathy, photocoagulation 09/21/2011 OS [facility] ??? Tx extensive retinopathy, photocoagulation 12/20/2011 OS MANN ??? Tx extensive retinopathy, photocoagulation 01/04/2012 OS MANN ??? Vitrectomy, w/ membrane stripping 04/03/2012 OD, CBC ? ? Repair complex retina detach vitrectomy & memb peel 07/31/2012 REPAIR COMPLEX RETINAL DETACHMENT, W/ VITRECTOMY, MEMBRANE PEELING performed by Matteo Diane MD at [facility] MAIN OR ??? Remv cataract extracap,insert lens,comp 07/18/2012 ??? Remv cataract extracap,insert lens 11/29/2012 CATARACT EXTRACTION, EXTRACAPSULAR, W/ LENS INSERTION performed by Erasmo Bajwa MD at [facility] ??? Cataract removal 07/18/12 OD [place] ??? Cataract extraction, extracapsular, w/ lens insertion 11/29/12 OS - DMM History Substance Use Topics ??? Smoking status: Former Smoker ??? Smokeless tobacco: Not on file Comment: stopped 25 years ago ??? Alcohol Use: No History Drug Use No Allergies Allergen Reactions ??? Penicillins Other (See Comments) FACIAL SWELLING Medications: MAR and/or home medications have been reviewed. Physical Exam: There were no vitals filed for this visit. There is no height or weight on file to calculate BMI. Airway Assessment: Mallampati: II TM distance: >3 FB Neck ROM: full Cardiovascular Assessment: cardiovascular exam normal Pulmonary Assessment: pulmonary exam normal Dental Assessment: (+) upper dentures and lower dentures Mis Assessment: Patient is wearing No contact(s). IV access: Peripheral line Anesthesia Plan: ASA 2 general and MAC, with a(n) intravenous induction This is a 52 y/o M wit HTN, GERD, IDDM (took full dose lantus 70U yesterday evening) with retinopathy, difficult intubation in past (MAC 3, Mil 3 --> suggest videolaryngoscopy) with questionable laryngospasm after extubation requiring reintubation in 04/12; scheduled for right side vitrectomy with membrane stripping for retinal detachment. Pt denies CP, SOB, difficultly lying flat. He has good functional status at baseline. Allergies: PCN - facial swelling Wt 103kg Anesthesia plan: GA - likely ETT vs. LMA, videolaryngoscopy I discussed the risks of GA with the patient. These include but are not limited to nerve damage from positioning, sore throat, dental damage, cardiopulmonary complications, nausea, vomiting, allergicreactions, and pain. Region - Other Informed Consent: Anesthetic plan and risks discussed with patient. Plan discussed with attending. [facility] Assessment: documented in this encounter Plan of Treatment Not on file documented as of this encounter Visit Diagnoses Not on filedocumented in this encounter Administered Medications Inactive Administered Medications - up to 3 most recent administrations Medication Order MAR Action Action Date Dose Rate Site ePHEDrine Sulfate in sodium chloride 0.9% (PF) 50 mg/10 mL (5 mg/mL) injection Syrg PRN, Starting on Tue01/08/13 at 0815, Until Tue01/08/13 at 0955, Anesthesia Intra-op Given 01/08/2013 8:15 AM EDT 5 mg fentaNYL 50mcg/mL injection PRN, Starting on Tue01/08/13 at 0729, Until Tue01/08/13 at 0955, Pain, Anesthesia Intra-op, Routine Given 01/08/2013 7:29 AM EDT 50 mcg lactated ringers infusion CONTINUOUS PRN, Starting on Tue01/08/13 at 0729, Until Tue01/08/13 at 0955, Anesthesia Intra-op New Bag 01/08/2013 7:29 AM EDT mL metoprolol (LOPRESSOR) injection PRN, Starting on Tue01/08/13 at 0948, Until Tue01/08/13 at 0955, High Blood Pressure, Anesthesia Intra-op, Routine Given 01/08/2013 9:51 AM EDT 2.5 mg Given 01/08/2013 9:48 AM EDT 5 mg PHENYLephrine HCl in NS (PF) (GWEN-SYNEPHRINE) 0.8 mg/10 mL (80 mcg/mL) injection Syrg PRN, Starting on Tue01/08/13 at 0800, Until Tue01/08/13 at 0955, Anesthesia Intra-op, Routine Given 01/08/2013 8:54 AM EDT 80 mcg Given 01/08/2013 8:34 AM EDT 80 mcg Given 01/08/2013 8:30 AM EDT 80 mcg propofol (DIPRIVAN) 10 mg/mL bolus injection (Anesthesia) PRN, Starting on Tue01/08/13 at 0740, Until Tue01/08/13 at 0955, Anesthesia Intra-op Given 01/08/2013 7:40 AM EDT 200 mg succinylcholine (ANECTINE) injection PRN, Starting on Tue01/08/13 at 0740, Until Tue01/08/13 at 0955, Anesthesia Intra-op, Routine Given 01/08/2013 7:40 AM EDT 160 mg documented in this encounter Care Teams Volleyball Referee Relationship Specialty Start Date End Date Ej Duran MD [address] [place] [address] PCP - General 10/28/11 06/04/18 documented as of this encounter
--- OUTSIDE RECORDS SUMMARY | 2023-12-28 16:40 | XMS_ITS | Encounter Summary ---
Author Organization [facility] [place] [address] Care Team Providers Care Brazer Helper Induction Name Role Phone Ej Duran MD Primary Care Provider [phone] Reason for Visit * Reason Comments Eye Pain 1 month follow up on eye pain OD Encounter Details Date Type Department Care Team (Late st Contact Info) Description 03/27/2013 1:15 PM EST Office [place] [address] Matteo Diane MD [facility] [place] [address] Hyperopia (Primary Dx) Discharge Disposition: Home Social History [...] Progress Notes * Matteo Diane MD - 03/27/2013 11:25 PM EST Patient is currently stable with silicone oil in place. Pain resolved. Return in 6 weeks then consider silicone oil removal right eye. left eye stable after cataract surgery. ESTRELLA Hardy Previous note Matteo Diane MD Physician 02/27/2013 5:31 PM Signed The patient has been experiencing significant inflammation and pain in the right eye which does notappear to be angle-closure at this time. However, this has be to considered as a possibility given his hyperopia, silicone oil and previous history of angle-closure. The implant but stable and the anterior chamber is deep without signs of peripheral iris occlusion of the trabecular meshwork. Intraocular pressure was measured and found to be 12 mm. A low threshold for considering repeat peripheraliridectomy if pain does not ruby with prednisolone 4 times a day and ketorolac 3 times a day Return in 2-3 weeks or immediately if pain becomes worse. Pred forte and ketorolac each 3 times a day. Continue Motrin and ice packs. The peripheral iridectomy appears tenuous but patent at this time. Follow for closure. Alternatively, silicone oil can be considered. Left eye is currently stable by examination and no recurrent edema in the macula is noted. Good PRP noted left. Also, continue, again right eye as prescribed Visual prognosis in the right eye is extremely poor by virtue of the late presentation and profoundischemia. documented in this encounter Plan of Treatment Not on file documented as of this encounter Visit Diagnoses Diagnosis Hyperopia- Primary Hypermetropia documented in this encounter Care Teams Brazer Helper Induction Relationship Specialty Start Date End Date Ej Duran MD [address] [place] [address] PCP - General 10/28/11 06/04/18 documented as of this encounter
--- OUTSIDE RECORDS SUMMARY | 2023-12-28 16:40 | XMS_ITS | Encounter Summary ---
Author Organization [facility] [place] [address] Care Team Providers Care Library Director Name Role Phone Ej Duran MD Primary Care Provider [phone] Encounter Details Date Type Department Care Team (Late st Contact Info) Description 07/31/2012 7:30 AM EDT - 07/31/2012 8:28 AM EDT Surgery [place] [address] Ruthann Beckett MD [facility] [place] [address] REPAIR COMPLEX RETINAL DETACH W/VITRECTOMY, MEMBRANE PEELING, DRAINAGE (WRVU 19) Social History Tobacco Use Types Packs/Day Years [...] Sign Reading Time Taken Comments Blood Pressure 165/90 07/31/2012 6:33 AM EDT Pulse 87 07/31/2012 6:33 AM EDT Temperature 36.5 ??C (97.7 ??F) 07/31/2012 6:33 AM ED T Respiratory Rate 16 07/31/2012 6:33 AM EDT Oxygen Saturation 98% 07/31/2012 6:33 AM EDT Inhaled Oxygen Concentration - - Weight - - Height - - Body Mass Index - - documented in this encounter Discharge Instructions * Discharge Instructions* Kimani Solano RN - 07/31/2012 9:11 AM EDT POST ANESTHESIA INSTRUCTIONS Go home, rest, use caution on stairs. Change positions slowly. Do not smoke if you are alone. Diet light to regular as tolerated today. If nausea occurs start with clear liquids and progress slowly. No driving, operating machinery, alcoholic beverages and no important decisions for 24 hours. Monitor IV site for signs and symptoms of infection: increasing redness, swelling, foul drainage, if occurs contact M.D. Patients who have had endotrachial tubes (this tube, used by anesthesia department, is passed down your throat after you are asleep, to ensure safe air passage during your operation). A sore throat is normal due to the tube. Cold liquids or soothing lozenges will help ease the discomfort. The generalized muscle aches are due to the medication given to you just before the tube is inserted. As the medication wears off, you may develop muscle soreness, which usually goes away in 12-24 hours. * Patient Instructions* Lesli Vo PA - 07/31/2012 8:58 AM EDT Please keep patch and shield on operated eye until follow up appointment tomorrow. Ice packs over patch and shield as needed for pain. Tylenol 500 mg every four hours as needed for pain. Please bring eye kit and all eye drops to tomorrow's appointment. Call [phone] for all questions concerns. Right side down 95% of time. May ambulate to eat and use restroom. documented in this encounter Medications at Time of Discharge Medication Sig Dispensed Refills Start Date End Date gabapentin (NEURONTIN) 300 mg capsule Take 300 mg by mouth 3 times daily. sertraline (ZOLOFT) 25 mg tablet Take 50 mg by mouth daily. prednisoLONE acetate (PRED FORTE) 1 % ophthalmic suspension Place 1 drop into the right eye 4 times daily. 07/25/2012 013 dorzolamide-timolol (COSOPT) 2-0.5 % ophthalmic solution Place 1 drop into the right eye 2 times daily. 10 mL 3 06/21/2012 12/06/2012 lisinopril-hydrochlor othiazide (PRINZIDE;ZESTORETIC) 20-25 mg per tablet Take 2 tablets by mouth 2 times daily. 06/08/2018 atorvastatin (LIPITOR) 20 mg tablet Take 20 mg by mouth daily. 11/29/2012 multivitamin (THERAGRAN) tablet Take 1 tablet by [...] as of this encounter H&P Notes * Lesli Vo PA - 07/31/2012 7:15 AM EDT No change from H+P located in scanned documents. Source Note - Lesli Vo PA - 07/31/2012 7:15 AM EDT Please see H+P in surgical consult. * Lesli Vo PA - 07/31/2012 7:15 AM EDT Please see H+P in surgical consult. documented in this encounter Nursing Notes * Era Braden, PERNELL - 07/31/2012 8:54 AM EDT Position right side down 16% c3f8 gas rt eye Gas bracelet on Card in black bag documented in this encounter Miscellaneous Notes * Miscellaneous - Provider, Scanning - 07/31/2012 9:52 PM EDT * Miscellaneous - Provider, Scanning - 07/31/2012 9:45 PM EDT * Miscellaneous - Provider, Scanning - 07/31/2012 9:42 PM EDT * Op Note - Ruthann Beckett MD - 07/31/2012 9:00 AM EDT [facility] Operative Note Patient Name: Maurice Rudolph : [id number] MR#: [id number] Case Date: 07/31/2012 Surgeon: Surgeon(s) and Role: * Ruthann Beckett MD - Primary * Lesli Vo PA SURGICAL STAFF/ASSISTANTS RUTHANN BECKETT M.D. [facility]. PREOPERATIVE DIAGNOSIS: Severe proliferative diabetic retinopathy with severe ischemia and retained lens material. POSTOPERATIVE DIAGNOSIS: Severe proliferative diabetic retinopathy with severe ischemia and retained lens material including PVR with tractional detachment nasal retina, right eye. ANESTHESIA: MAC. OPERATIONS PERFORMED: 1. Membrane peeling meticulous for severe PVR membrane including MVR blade, Venkatesh's pick, and Royer forceps. 2. Fluid-air exchange. 3. Endolaser and indirect laser photocoagulation. 4. Peripheral iridectomy. 5. Air-gas exchange (14% C3F8). 6. Removal of retained lens material using phacofragmatome. OPERATIVE INDICATIONS: The patient is a gentleman who has undergone surgery for severe and profound ischemia owing to proliferative diabetic retinopathy who recently underwent cataract surgery and has retained lens material. The lens material was covering the posterior pole and peripheral retina and appeared to be demonstrating early inflammatory activity as well. Given the risks for inflammation, glaucoma, and other problems, we have collectively decided the benefits of surgery with the risks. He understands the risks of endophthalmitis, poor prognosis, need for related procedures, bleeding, return of glaucoma, and other adames considerations. He has given informed consent after demonstrating excellent insight and understanding the guarded prognosis by virtue of the severe ischemia. OPERATIVE TECHNIQUE: The patient was ushered into the operating room. A time-out was performed collectively by the surgical and anesthesia teams. Using careful based sedation and careful technique, retrobulbar anesthesia and lid akinesia were achieved without difficulty. The patient was then prepped and draped in the usual sterile manner for ophthalmic surgery including Betadine solution in sterile field technique. A divided three-port pars plana vitrectomy was setup with infusion cannula placement inferotemporally using the phacofragmatome and the vitrectomy instrument, retained cortical and nuclear material were carefully aspirated. Scleral indentation allowed for removal of the lens material as well. After removing the lens material, intraoperatively, he was found to have a tractional retinal detachment involving the inferonasal quadrant with a large adherent epiretinal membrane in the peripapillary region. The membrane was also seen at 6 o'clock. Using MVR blade and Venkatesh's pick, the membrane was undermined in the peripapillary region as well as inferiorly at 6 o'clock and this Royer forceps were then used to remove the membrane tangentially and circumferentially. This appeared to impart complete relief of traction. The break at 6 o'clock appeared to have a small necrotic breaks in association with this. This served as the drainage point for the fluid-air exchange. The retina flattened perfectly. Endolaser was used to treat the small area at 6 o'clock and then apparent retina laser was extended from the optic nerve to the periphery outside of the arcade especially inferonasally. The indirect laser allowed for completion of laser in the anterior periphery especially inferonasally and inferiorly at 6 o'clock. Following this, a small peripheral iridectomy was fashioned at 6 o'clock. This was followed by an air-gas exchange using 14% C3F8 gas. This gas was monitored by the surgeon and its preparation, then diluted by the surgeon and administered by the surgeon with the finial closing pressure between 8 mm and 9 mm. With the sclerotomy site closed with 7-0 Vicryl suture, the conjunctiva and Tenons were coapted followed by subconjunctival injections of Ancef and dexamethasone followed by Cosopt and Maxitrol ointment. Please note the supplemental sub-Tenon's anesthetic was administered at this time. Please note also the fwtaaiti-uq-hulgcjmj time was from 7:55 a.m. exactly until 8:55 a.m. The patient will return here postoperative day #1. He is to lie on the right side. Airway safety and venous thrombosis prevention measures will be reviewed again in the postoperative setting. He is to call the eye physician second time worker the overnight period if there are any problems, questions, or concerns. MAC Estimated Blood Loss: 0 Drains: o Disposition: aroused from sedation, and taken to the recovery room in a stable condition Condition: doing well without problems (Please see the Surgical Encounter Summary for any Implant and Specimen details pertinent to this patient.) * OR Attestation - Ruthann Beckett MD - 07/31/2012 8:59 AM EDT Attestation: Case Date: 07/31/2012 I performed this procedure without the involvement of a resident. RUTHANN BECKETT MD 07/31/2012 * Brief Op Note - Ruthann Beckett MD - 07/31/2012 8:58 AM EDT Brief Operative Note Patient Name: Maurice Rudolph : [id number] MR#: [id number] Case Date: 07/31/2012 Surgeon: Surgeon(s) and Role: * Ruthann Beckett MD - Primary * Lesli Vo PA Preoperative diagnosis: retained lens fragments right eye and tractional detachment with PVR Complex Postoperative diagnosis: same Procedure(s): VITRECTOMY, MEMBRANE PEEL-,PI,LASER GAS OD Anesthesia: MAC Findings: Retained Lens and PVR/TRD Complications: 0 Fluids: NS Estimated Blood Loss: 0 Drains: 0 Disposition: awakened from anesthesia, extubated and taken to the recovery room in a stable condition, having suffered no apparent untoward event. Condition: doing well without problems (Please see the Surgical Encounter Summary for any Implant and Specimen details pertinent to this patient.) * Miscellaneous - Provider, Scanning - 07/31/2012 6:22 AM EDT documented in this encounter Plan of Treatment Not on file documented as of this encounter Procedures Procedure Name Priority Date/Time Associated Diagnosis Comments POCT GLUCOSE Routine 07/31/2012 9:09 AM EDT REPAIR COMPLEX RETINAL DETACH W/VITRECTOMY, MEMBRANE PEELING, DRAINAGE (WRVU 19) Yes 07/31/2012 7:22 AM EDT retained lens fragments right eye POCT GLUCOSE Routine 07/31/2012 6:37 AM EDT documented in this encounter Results * POCT Glucose (07/31/2012 9:09 AM EDT) [facility] Signature Glucose, POC 181 60 - 199 mg/dL [facility] Comment: Supplemental ranges: <110 mg/dL before meals <200 mg/dL all other times of the day Blood specimen (specimen) 07/31/2012 9:09 AM EDT 07/31/2012 9:09 AM EDT Ruthann Beckett MD POINT OF CARE T EST ORDERABLES BERHANE CASTRO * (ABNORMAL) POCT Glucose (07/31/2012 6:37 AM EDT) Glucose, POC 230(H) 60 - 199 mg/dL [facility] Comment: Supplemental ranges: <110 mg/dL before meals <200 mg/dL all other times of the day Blood specimen (specimen) 07/31/2012 6:37 AM EDT 07/31/2012 6:37 AM EDT Ruthann Beckett MD POINT OF CARE T EST ORDERABLES Performing Organization Address [facility] Co de Phone Number BERHANE CASTRO documented in this encounter Visit Diagnoses Not on filedocumented in this encounter Administered Medications Inactive Administered Medications - up to 3 most recent administrations Medication Order MAR Action Action Date Dose Rate Site atropine 1 % ophthalmic solution 1 drop 1 drop, Right Eye, EVERY 5 MIN, 3 doses, First dose on Tue07/31/12 at 0730, Last dose on Tue07/31/12 at 0740, Day of Surgery (Day of Procedure), Routine Given 07/31/2012 7:40 AM EDT 1 drop Given 07/31/2012 7:15 AM EDT 1 drop Given 07/31/2012 7:10 AM EDT 1 drop balanced salt (BSS PLUS) irrigation solution ONCE PRN, Starting on Tue07/31/12 at 0811, Until Tue07/31/12 at 1207, Intra-Operative (Intra-Procedure), Routine Given 07/31/2012 8:11 AM EDT 500 mLs balanced salt (BSS) irrigation solution ONCE PRN, Starting on Tue07/31/12 at 0811, Until Tue07/31/12 at 1207, Intra-Operative (Intra-Procedure), Routine Given 07/31/2012 8:11 AM EDT 45 mLs balanced salt (BSS) irrigation solution ONCE PRN, Starting on Tue07/31/12 at 0811, Until Tue07/31/12 at 1207, Intra-Operative (Intra-Procedure), Routine Given 07/31/2012 8:11 AM EDT 500 mLs BUpivacaine (PF) (MARCAINE) 0.75 % (7.5 mg/mL) injection ONCE PRN, Starting on Tue07/31/12 at 0750, Until Tue07/31/12 at 1207, Intra-Operative (Intra-Procedure), Routine Given 07/31/2012 9:00 AM EDT 1.5 mLs Right Eye Given 07/31/2012 8:00 AM EDT 1 mL Ri ght Eye Given 07/31/2012 7:50 AM EDT 6 mLs Ri ght Eye ceFAZolin (ANCEF) injection ONCE PRN, Starting on Tue07/31/12 at 0813, Until Tue07/31/12 at 1207, Intra-Operative (Intra-Procedure), Routine Given 07/31/2012 8:13 AM EDT 100 mg 19- Surgical Site dexamethasone (DECADRON) injection ONCE PRN, Starting on Tue07/31/12 at 0813, Until Tue07/31/12 at 1207, Intra-Operative (Intra-Procedure), Routine Given 07/31/2012 8:13 AM EDT 2 mg 19- Surgical Site dextrose 50% injection ONCE PRN, Starting on Tue07/31/12 at 0817, Until Tue07/31/12 at 1207, Low blood sugar, Intra-Operative (Intra-Procedure), Routine Given 07/31/2012 8:17 AM EDT 3 mLs dorzolamide-timolol (COSOPT) 2-0.5 % ophthalmic solution ONCE PRN, Starting on Tue07/31/12 at 0818, Until Tue07/31/12 at 1207, Intra-Operative (Intra-Procedure), Routine Given 07/31/2012 8:18 AM EDT 1 drop Lidocaine (PF) 20 mg/mL (2 %) ONCE PRN, Starting on Tue07/31/12 at 0750, Until Tue07/31/12 at 1207, Intra-Operative (Intra-Procedure), Routine Given 07/31/2012 9:00 AM EDT 30 mg 19- Surgical Site Given 07/31/2012 8:00 AM EDT 20 mg 19 - Surgical Site Given 07/31/2012 7:50 AM EDT 120 mg 19 - Surgical Site moxifloxacin (VIGAMOX) 0.5 % ophthalmic solution 1 drop 1 drop, Right Eye, EVERY 5 MIN, 3 doses, First dose on Tue07/31/12 at 0730, Last dose on Tue07/31/12 at 0740, Day of Surgery (Day of Procedure), Routine Given 07/31/2012 7:40 AM EDT 1 drop Given 07/31/2012 7:15 AM EDT 1 drop Given 07/31/2012 7:10 AM EDT 1 drop depzowbv-wvxfqqgeh-iijqlrrcycwui (DEXACINE) 3.5-10,000-0.1 mg-unit/g-% ophthalmic ointment ONCE PRN, Starting on Tue07/31/12 at 0819, Until Tue07/31/12 at 1207, Intra-Operative (Intra-Procedure), Routine Given 07/31/2012 8:19 AM EDT 1 Tube PHENYLephrine (MYDFRIN) 2.5 % ophthalmic solution 1 drop 1 drop, Right Eye, EVERY 5 MIN, 3 doses, First dose on Tue07/31/12 at 0730, Last dose on Tue07/31/12 at 0740, Day of Surgery (Day of Procedure), Routine Given 07/31/2012 7:40 AM EDT 1 drop Given 07/31/2012 7:15 AM EDT 1 drop Given 07/31/2012 7:10 AM EDT 1 drop povidone-iodine 5 % ophthalmic solution ONCE PRN, Starting on Tue07/31/12 at 0749, Until Tue07/31/12 at 1207, Irritation, Intra-Operative (Intra-Procedure), Routine Given 07/31/2012 7:49 AM EDT 30 mLs prednisoLONE acetate (PRED FORTE) 1 % ophthalmic suspension 1 drop 1 drop, Right Eye, ONCE, 1 dose, On Tue07/31/12 at 0730, Day of Surgery (Day of Procedure), Routine Given 07/31/2012 7:10 AM EDT 1 drop sterile water injection ONCE PRN, Starting on Tue07/31/12 at 0820, Until Tue07/31/12 at 1207, Intra-Operative (Intra-Procedure), Routine Given 07/31/2012 8:20 AM EDT 2.5 mLs 20-Other (document i n comment section) documented in this encounter Active and Recently Administered Medications Times are shown in EDT. Scheduled Medication Order 07/29/2012 07/30/2012 07/31/2012 atropine 1 % ophthalmic solution 1 drop (COMPLETED) 1 drop, Right Eye, EVERY 5 MIN, 3 doses, First dose on Tue07/31/12 at 0730, Last dose on Tue07/31/12 at 0740, Day of Surgery (Day of Procedure), Routine 0710 (Given - Provid er: Cherelle Venegas RN)0715 (Given - Provider: Cherelle Venegas RN)0740 (Given - Provider: Kimani Solano RN) moxifloxacin (VIGAMOX) 0.5 % ophthalmic solution 1 drop (COMPLETED) 1 drop, Right Eye, EVERY 5 MIN, 3 doses, First dose on Tue07/31/12 at 0730, Last dose on Tue07/31/12 at 0740, Day of Surgery (Day of Procedure), Routine 0710 (Given - Provid er: Cherelle Venegas RN)0715 (Given - Provider: Cherelle Venegas RN)0740 (Given - Provider: Kimani Solano RN) PHENYLephrine (MYDFRIN) 2.5 % ophthalmic solution 1 drop (COMPLETED) 1 drop, Right Eye, EVERY 5 MIN, 3 doses, First dose on Tue07/31/12 at 0730, Last dose on Tue07/31/12 at 0740, Day of Surgery (Day of Procedure), Routine 0710 (Given - Provid er: Cherelle Venegas RN)0715 (Given - Provider: Cherelle Venegas RN)0740 (Given - Provider: Kimani Solano, PERNELL) prednisoLONE acetate (PRED FORTE) 1 % ophthalmic suspension 1 drop (COMPLETED) 1 drop, Right Eye, ONCE, 1 dose, On Tue07/31/12 at 0730, Day of Surgery (Day of Procedure), Routine 0710 (Given - Provid er: Cherelle Venegas RN) PRN Medication Order 07/29/2012 07/30/2012 07/31/2012 balanced salt (BSS PLUS) irrigation solution (CANCELED) ONCE PRN, Starting on Tue07/31/12 at 0811, Until Tue07/31/12 at 1207, Intra-Operative (Intra-Procedure), Routine 0811 (Given - Provid er: Ruthann Beckett MD) balanced salt (BSS) irrigation solution (CANCELED) ONCE PRN, Starting on Tue07/31/12 at 0811, Until Tue07/31/12 at 1207, Intra-Operative (Intra-Procedure), Routine 08 (Given - Provid er: Ruthann Beckett MD) balanced salt (BSS) irrigation solution (CANCELED) ONCE PRN, Starting on Tue07/31/12 at 0811, Until Tue07/31/12 at 1207, Intra-Operative (Intra-Procedure), Routine 08 (Given - Provid er: Ruthann Beckett MD) BUpivacaine (PF) (MARCAINE) 0.75 % (7.5 mg/mL) injection (CANCELED) ONCE PRN, Starting on Tue07/31/12 at 0750, Until Tue07/31/12 at 1207, Intra-Operative (Intra-Procedure), Routine 0750 (Given - Provid er: Ruthann Beckett MD - Comment: mixed with lidocaine for retrobulbar and lid block)0800 (Given - Provider: Ruthann Beckett MD)0900 (Given - Provider: Ruthann Beckett MD) ceFAZolin (ANCEF) injection (CANCELED) ONCE PRN, Starting on Tue07/31/12 at 0813, Until Tue07/31/12 at 1207, Intra-Operative (Intra-Procedure), Routine 812 (Given - Provid er: Ruthann Beckett MD - Comment: post op) dexamethasone (DECADRON) injection (CANCELED) ONCE PRN, Starting on Tue07/31/12 at 0813, Until Tue07/31/12 at 1207, Intra-Operative (Intra-Procedure), Routine 812 (Given - Provid er: Ruthann Beckett MD - Comment: post op) dextrose 50% injection (CANCELED) ONCE PRN, Starting on Tue07/31/12 at 0817, Until Tue07/31/12 at 1207, Low blood sugar, Intra-Operative (Intra-Procedure), Routine 08 (Given - Provid er: Ruthann Beckett MD - Comment: mixed with BSS Plus 500ml) dorzolamide-timolol (COSOPT) 2-0.5 % ophthalmic solution (CANCELED) ONCE PRN, Starting on Tue07/31/12 at 0818, Until Tue07/31/12 at 1207, Intra-Operative (Intra-Procedure), Routine 0818 (Given - Provid er: Ruthann Beckett MD - Comment: post op) Lidocaine (PF) 20 mg/mL (2 %) (CANCELED) ONCE PRN, Starting on Tue07/31/12 at 0750, Until Tue07/31/12 at 1207, Intra-Operative (Intra-Procedure), Routine 0750 (Given - Provid er: Ruthann Beckett MD - Comment: mixed with bupivacaine for retrobulbar and lid block)0800 (Given - Provider: Ruthann Beckett MD)0900 (Given - Provider: Ruthann Beckett MD - Comment: mixed with bupivacaine) qmaqsbco-ddlpkvcey-ydurldoirvhh e (DEXACINE) 3.5-10,000-0.1 mg-unit/g-% ophthalmic ointment (CANCELED) ONCE PRN, Starting on Tue07/31/12 at 0819, Until Tue07/31/12 at 1207, Intra-Operative (Intra-Procedure), Routine 0819 (Given - Provid er: Ruthann Beckett MD - Comment: post op) povidone-iodine 5 % ophthalmic solution (CANCELED) ONCE PRN, Starting on Tue07/31/12 at 0749, Until Tue07/31/12 at 1207, Irritation, Intra-Operative (Intra-Procedure), Routine 0749 (Given - Provid er: Era Braden RN - Comment: prep) sterile water injection (CANCELED) ONCE PRN, Starting on Tue07/31/12 at 0820, Until Tue07/31/12 at 1207, Intra-Operative (Intra-Procedure), Routine 0820 (Given - Provid er: Ruthann Beckett MD - Comment: used to mix cefazolin) documented in this encounter Care Teams Library Director Relationship Specialty Start Date End Date Ej Duran MD [address] [place] [address] PCP - General 10/28/11 06/04/18 documented as of this encounter
--- OUTSIDE RECORDS SUMMARY | 2023-12-28 16:40 | XMS_ITS | Encounter Summary ---
Author Organization [facility] [place] [address] Care Team Providers Care Hide Selector Name Role Phone Ej Duran MD Primary Care Provider [phone] Reason for Visit * Reason Comments Diabetes 3-mon f/u for PDR Encounter Details Date Type Department Care Team (Late st Contact Info) Description 09/14/2013 2:30 PM EDT Follow[place] [address] Matteo Diane MD [facility] [address] [place] [address] Proliferative diabetic retinopathy, both eyes, type 1, without macular edema; Ocular hypertension of right eye. Postop; Ischemic diabetic maculopathy, type 1, without macular edema, with proliferative retinopathy; IDDM (insulin dependent diabetes mellitus); Acute angle-closure glaucoma of right eye Discharge [...] Progress Notes * Matteo Diane MD - 09/13/2013 11:52 AM EDT 1. Proliferative diabetic retinopathy, both eyes, type 1, without macular edema 2. Ocular hypertension of right eye. Postop 3. Ischemic diabetic maculopathy, type 1, without macular edema, with proliferative retinopathy 4. IDDM (insulin dependent diabetes mellitus) 5. Acute angle-closure glaucoma of right eye Patient is currently stable in the right eye under silicone oil but severe and profound ischemia precludes return of central visual acuity. No surgery for the right eye recommended. In the left eye, the macular edema is remarkably dry. Anterior segment is quiet and no signs of rubeosis are seen both eyes. Follow carefully. Return here in 8-12 weeks or sooner if any changes Matteo Ortiz M.D., MD Physician 06/16/2013 2:35 PM Signed 1. Hyperopia, bilateral 2. Proliferative diabetic retinopathy, both eyes, type 1, without macular edema 3. HTN (hypertension) 4. GERD (gastroesophageal reflux disease) 5. Acute angle-closure glaucoma of right eye 6. Ischemic diabetic maculopathy, type 1, without macular edema, with proliferative retinopathy 7. IDDM (insulin dependent diabetes mellitus) 8. Ocular hypertension of right eye. Postop Edema OS resolved 8 weeks Possible oil removal in future documented in this encounter Plan of Treatment Not on file documented as of this encounter Visit Diagnoses Diagnosis Proliferative diabetic retinopathy, both eyes, type 1, without macular edema Ocular hypertension of right eye. Postop Borderline glaucoma with ocular hypertension Ischemic diabetic maculopathy, type 1, without macular edema, with proliferative retinopathy IDDM (insulin dependent diabetes mellitus) Type II or unspecified type diabetes mellitus without mention of complication, not stated as uncontrolled Acute angle-closure glaucoma of right eye Acute angle-closure glaucoma documented in this encounter Care Teams Hide Selector Relationship Specialty Start Date End Date Ej Duran MD [address] [place] [address] PCP - General 10/28/11 06/04/18 documented as of this encounter
--- OUTSIDE RECORDS SUMMARY | 2023-12-28 16:40 | XMS_ITS | Encounter Summary ---
Author Organization [facility] [place] [address] Care Team Providers Care Scrap Sorter Name Role Phone Jarad Keller DANIKA Primary Care Provider [phone] Reason for Visit * Consultation (Routine) - Closed Specialty Diagnoses / Procedures Referred By Puneet hallman Referred To Contact Transplant Procedures TXP Too Jang MD [facility] [place] [address] Young Watts MD [facility] [place] [address] Referral ID Status Reason Start Date Expiration Date Visits Re quested Visits Authorized [id number] Closed 05/09/2018 05/09/2019 1 1 Encounter Details Date Type Department Care Team (Latest Contact Info) Description 06/08/2018 9:00 AM EST Clinical Support [place] [address] Young Watts MD [facility] [place] [address] Pre-transplant evaluation for kidney transplant Social History [...] Progress Notes * Tamar Bailey RN - 06/08/2018 9:00 AM EST Patient: Maurice Rudolph Additional Learners: None The above named attended our 90 min multi disciplinary educational [...] stay Discharge and follow up Recipient expectations Patient received green recipient folder containing: ?? Welcome letter [...] Know -What Every Patient Needs to Know The patient was given many opportunities to ask questions to all members of the transplant team throughout the process. The patient acknowledges understanding of the presented materials, and reports that they will ask any questions that arise. documented in this encounter Plan of Treatment Not on file documented as of this encounter Visit Diagnoses Diagnosis Pre-transplant evaluation for kidney transplant Other specified pre-operative examination documented in this encounter Care Teams Scrap Sorter Relationship Specialty Start Date End Date Jarad Keller DNP PCP - General Family Medicine 06/05/18 02/09/21 documented as of this encounter
--- OUTSIDE RECORDS SUMMARY | 2023-12-28 16:40 | XMS_ITS | Encounter Summary ---
Author Organization [facility] [place] [address] [place] [address] Care Team Providers Care Cad Developer Name Role Phone Ej Duran MD Primary Care Provider [phone] Reason for Visit * Reason Comments PDR 4 wk f/u Encounter Details Date Type Department Care Team (Late st Contact Info) Description 06/12/2013 2:45 PM EST [place] [address] Matteo Diane MD [facility] [place] [address] Hyperopia, bilateral; Proliferative diabetic retinopathy, both eyes, type 1, without macular edema; HTN (hypertension); GERD (gastroesophageal reflux disease); Acute angle-closure glaucoma of right eye; Ischemic diabetic maculopathy, type 1, without macular edema, with proliferative retinopathy; IDDM (insulin dependent diabetes mellitus); Ocular hypertension of right eye. Postop Discharge [...] Progress Notes * Matteo Diane MD - 06/11/2013 11:22 PM EST 1. Hyperopia, bilateral 2. Proliferative diabetic retinopathy, [...] 8 weeks Possible oil removal in future Matteo Diane MD Physician 05/13/2013 11:45 PM Signed In the right eye, retinas perfectly stable [...] as of this encounter Visit Diagnoses Diagnosis Hyperopia, bilateral Proliferative diabetic retinopathy, both eyes, type 1, without macular edema HTN (hypertension) Unspecified essential hypertension GERD (gastroesophageal reflux disease) Esophageal reflux Acute angle-closure glaucoma of right eye Acute angle-closure glaucoma Ischemic diabetic maculopathy, type 1, without macular edema, with proliferative retinopathy IDDM (insulin dependent diabetes mellitus) Type II or unspecified type diabetes mellitus without mention of complication, not stated as uncontrolled Ocular hypertension of right eye. Postop Borderline glaucoma with ocular hypertension documented in this encounter Care Teams Cad Developer Relationship Specialty Start Date End Date Ej Duran MD [address] [place] [address] PCP - General 10/28/11 06/04/18 documented as of this encounter
--- OUTSIDE RECORDS SUMMARY | 2023-12-28 16:40 | XMS_ITS | Encounter Summary ---
Author Organization [facility] [place] [address] Care Team Providers Care Recreational Leader Name Role Phone Ej Duran MD Primary Care Provider [phone] Encounter Details Date Type Department Care Team (Late st Contact Info) Description 01/08/2013 6:08 AM EDT - 01/08/2013 11:34 AM EDT Hospital Encounter [place] [address] Ruthann Beckett MD [facility] [place] [address] Discharge Disposition: Home Social History Tobacco Use [...] Sign Reading Time Taken Comments Blood Pressure 174/77 01/08/2013 11:05 AM EDT Pulse 84 01/08/2013 11:05 AM EDT Temperature 36.4 ??C (97.5 ??F) 01/08/2013 9:55 AM ED T Respiratory Rate 20 01/08/2013 10:47 AM EDT Oxygen Saturation 92% 01/08/2013 11:05 AM EDT Inhaled Oxygen Concentration - - Weight 103.4 kg (228 lb) 01/08/2013 6:40 AM EDT Height 162.6 cm (5' 4) 01/08/2013 6:40 AM EDT Body Mass Index 39.14 01/08/2013 6:40 AM EDT documented in this encounter Discharge Instructions * Discharge Instructions* Yashira Lai RN - 01/08/2013 10:16 AM EDT POST ANESTHESIA INSTRUCTIONS Go home, [...] * Patient Instructions* Lesli Vo PA - 01/08/2013 9:50 AM EDT Please keep patch and shield on operated eye until follow up appointment tomorrow. Ice packs over patch and shield as needed for pain. Tylenol 500 mg every four hours as needed for pain. Please bring eye kit and all eye drops to tomorrow's appointment. Call [phone] for all questions concerns. Left side down 95% of time. May ambulate [...] mg by mouth daily. Indications: Edema 06/08/2018 lisinopril-hydrochlor othiazide (PRINZIDE;ZESTORETIC) 20-25 mg per tablet [...] daily 06/23/200610/2018 documented as of this encounter Progress Notes * Yashira Lai RN - 01/08/2013 10:32 AM EDT 1020 Tolerating sips of water. Desats on RA to 87-89%. Nasal cannula placed . Encouraged deep rhythic breathing. O2 level elevates to 94 % on 4L NC. 1105 Reviewed written and verbal discharge instructions with patient. 1122 Pt sat EOB then up in room to get dressed independently. documented in this encounter H&P Notes * Lesli Vo PA - 01/08/2013 7:23 AM EDT No change from previous H+P. Source Note - Lesli Vo PA - 01/08/2013 7:22 AM EDT Patient Name: Maurice Rudolph Patient Age: 52 y.o. Birthdate: 1960 Admit date: 01/08/2013 Attending Physician: Ruthann Beckett, * Please see H+P in scanned documents. * Lesli Vo PA - 01/08/2013 7:22 AM EDT Patient Name: Maurice Rudolph Patient Age: 52 y.o. Birthdate: 1960 Admit date: 01/08/2013 Attending Physician: Ruthann Beckett, * Please see H+P in scanned documents. documented in this encounter Miscellaneous Notes * Miscellaneous - Provider, Scanning - 01/08/2013 2:25 PM EDT * Op Note - Ruthann Beckett MD - 01/08/2013 9:38 AM EDT [facility] Operative Note Patient Name: Maurice Rudolph : [id number] MR#: [id number] Case Date: 01/08/2013 Surgeon: Surgeon(s) and Role: * Ruthann Beckett MD - Primary * Lesli Vo PA - Physician Reroller Hand 8:10-9:38=1h 28m SURGICAL STAFF/ASSISTANTS RUTHANN Giordano. Neo BECKETT. 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 ANESTHESIA: General. COMPLICATIONS: None. OPERATION PERFORMED: 1. Membrane peeling, extensive and meticulous, including segmentation and delamination. 2. Retinectomy, inferotemporal and inferior retina. 3. Perfluorocarbon liquid tamponade. 4. Endolaser photocoagulation. 5. Fluid perfluorocarbon liquid exchange. 6. Air-silicone oil exchange. 7. Revision of inferior peripheral iridectomy. 8. Anterior capsulectomy with lysis of iris adhesions with zoroastrian of normal configuration of pupil. OPERATIVE INDICATIONS: The patient is a gentleman with severe proliferative diabetic retinopathy with a history of profound ischemia who now manifest recurrent tractional membranes and PVR formation. After careful review of the guarded prognosis as well as the risks, benefits, precautions, alternatives, and indications, he was given informed consent for surgery. He understands the risks of morbidity and mortality by virtue of his comorbid conditions, including severe hypertension and severe diabetes mellitus. Preoperative assessment revealed areas of viable retina. The patient understands the guarded prognosis, but would like to do everything possible to restore useful vision. He understands the risks of also of endophthalmitis, recurrent detachment, poor visual outcome, angle closure glaucoma, need for silicone oil removal, bleeding, and other rare and unforeseen complications. He demonstrates excellent insight. All questions were answered satisfactorily. The consent process took place not only in the clinic setting, but preoperatively here today. OPERATIVE TECHNIQUE: The patient was ushered in the operating room, general anesthesia was safely established, and time-out was performed collectively by the surgical and the anesthesia teams with site verification of the right eye after the patient was draped. With the patient prepped and draped in the usual sterile manner with ophthalmic surgery including Betadine solution and sterile field technique with drapes in place over the right eye, the conjunctiva and tenons were undermined with a 30-gauge needle with lidocaine and Marcaine. A divided three-port pars plana vitrectomy setup was accomplished. Multiple posterior synechia and large areas of capsular fibrosis were noted. The anterior chamber was entered with an MVR blade and these adhesions were cut. The vitrectomy probe was then placed into the anterior chamber and the anterior capsular material and fibrosis was easily dissected with good zoroastrian of pupil margin contour. This now provided excellent visualization. The small paracentesis fashion at 10 o'clock was closed with a single interrupted 10-0 nylon suture. The eye was then entered. Intraoperative findings were notable for broad sheaths of membrane with traction. Large sheaths of membrane were carefully delaminated and segmented, and broad sheaths were removed with a Royer forceps. Intraoperative findings were notable for intrinsic for shortening of the retina without preretinal fibrosis or subretinal fibrosis. Therefore, diathermy was applied from 5 o'clock to approximately 9 o'clock. These areas were marked with diathermy to ensure hemostasis. Vitrectomy probe was used to create this large contiguous area of scarring. Perfluorocarbon liquid was used to flatten the retina as well as confirm the absence of traction. Endolaser photocoagulation was applied posterior to the margins of the retinectomy and a continuous band was placed behind previous retinopexy scars. Areas of necrotic anterior retina were debrided. With the retina flat with good laser throughout and a perfluorocarbon liquid and the peripheral iridectomy at 5:30 o'clock was revised to ensure patency. Fluid-air, perfluorocarbon liquid exchange was performed with perfect flattening of the retina under air and removal of all perfluorocarbon liquid. Silicone oil was then introduced and brought to the level of the ora sanjuanita. An eye was closed with 7-0 Vicryl suture and the pressure titrated between 8 and 10 mm. Small drop of the silicone oil were copiously irrigated from the eye. The conjunctiva and tenons were then closed with interrupted 7-0 Vicryl suture followed by supplemental subtenons anesthetic, followed by subconjunctival injections of Ancef and dexamethasone. Cosopt was placed followed by Maxitrol ointment and placement of sterile eye patch and shield. The patient is now being gently extubated and will be discharged to the same day surgery recovery area. He will be discharged to home. The patient's history is significant for hypertension and this did not pose significant challenges intraoperatively. The patient will be allowed to alternate sides with principle attention to lying on his left side. Importance of airway safety and venous thrombosis prevention was reviewed preoperatively and will be reviewed again prior to discharge here today. The importance of venous thrombosis and airway safety were reviewed and he is not to use alcohol. He should return here tomorrow postoperative day #1. He is to call the eye physician on-call with severe pain, nausea, vomiting, or other related ocular systemic issues. Consult Estimated Blood Loss: 0 Drains: Condition: doing well without problems (Please see the Surgical Encounter Summary for any Implant and Specimen details pertinent to this patient.) * Brief Op Note - Ruthann Beckett MD - 01/08/2013 9:37 AM EDT Brief Operative Note Patient Name: Maurice Rudolph : [id number] MR#: [id number] Case Date: 01/08/2013 Surgeon: Surgeon(s) and Role: * Ruthann Beckett MD - Primary * Lesli Vo PA - Physician Reroller Hand Preoperative diagnosis: RETINAL DETACHMENT Postoperative diagnosis: RETINAL DETACHMENT tractional membranes Procedure(s): REPAIR COMPLEX RETINAL DETACHMENT, W/ VITRECTOMY, MEMBRANE PEELING- EXTENSIVE,RETINECTOMY,OIL PFO,LASER Anesthesia: Consult Findings: TRD and PVR Complications: 0 Fluids: LR 400cc Estimated Blood Loss: 0 Drains: 0 Disposition: awakened from anesthesia, extubated and taken to the recovery room in a stable condition, having suffered no apparent untoward event. Condition: doing well without problems (Please see the Surgical Encounter Summary for any Implant and Specimen details pertinent to this patient.) * OR Attestation - Ruthann Beckett MD - 01/08/2013 9:37 AM EDT Attestation: Case Date: 01/08/2013 I performed this procedure without the involvement of a resident. RUTHANN BECKETT MD 01/08/2013 documented in this encounter Plan of Treatment Not on file documented as of this encounter Procedures Procedure Name Priority Date/Time Associated Diagnosis Comments POCT GLUCOSE Routine 01/08/2013 9:58 AM EDT REPAIR COMPLEX RETINAL DETACH W/VITRECTOMY, MEMBRANE PEELING, DRAINAGE (WRVU 19) Yes 01/08/2013 7:22 AM EDT Retinal detachment POCT GLUCOSE Routine 01/08/2013 7:19 AM EDT documented in this encounter Results * POCT Glucose (01/08/2013 9:58 AM EDT) Glucose, POC 111 60 - 199 mg/dL [facility] Comment: Supplemental ranges: <110 mg/dL before meals <200 mg/dL all other times of the day Blood specimen (specimen) 01/08/2013 9:58 AM EDT 01/08/2013 9:58 AM EDT Ruthann Beckett MD POINT OF CARE T EST ORDERABLES Performing Organization Address [facility] Co de Phone Number [facility] * POCT Glucose (01/08/2013 7:19 AM EDT) Glucose, POC 119 60 - 199 mg/dL [facility] Comment: Supplemental ranges: <110 mg/dL before meals <200 mg/dL all other times of the day Blood specimen (specimen) 01/08/2013 7:19 AM EDT 01/08/2013 7:19 AM EDT Ruthann Beckett MD POINT OF CARE T EST ORDERABLES Performing Organization Address [facility] Co de Phone Number [facility] documented in this encounter Visit Diagnoses Not on filedocumented in this encounter Administered Medications Inactive Administered Medications - up to 3 most recent administrations Medication Order MAR Action Action Date Dose Rate Site acetaminophen (TYLENOL) tablet 650 mg 650 mg, Oral, EVERY 4 HOURS PRN, Starting on Tue01/08/13 at 0949, Until Tue01/08/13 at 1456, Pain, for MILD pain, Do not exceed 4,000 mg in 24 hours, Routine Given 01/08/2013 10:41 AM EDT 650 mg atropine 1 % ophthalmic solution 1 drop 1 drop, Right Eye, EVERY 5 MIN, 3 doses, First dose on Tue01/08/13 at 0730, Last dose on Tue01/08/13 at 0740, Day of Surgery (Day of Procedure), Routine Given 01/08/2013 7:28 AM EDT 1 drop Given 01/08/2013 7:23 AM EDT 1 drop Given 01/08/2013 7:17 AM EDT 1 drop ibuprofen (ADVIL;MOTRIN) tablet 800 mg 800 mg, Oral, EVERY 6 HOURS PRN, Starting on Tue01/08/13 at 0949, Until Tue01/08/13 at 1456, Pain, for MODERATE pain, Do not administer with ketorolac, Routine Given 01/08/2013 11:30 AM EDT 800 mg lactated ringers infusion 50 mL/hr, Intravenous, CONTINUOUS, Starting on Tue01/08/13 at 0700, Until Tue01/08/13 at 1456, Day of Surgery (Day of Procedure) New Bag 01/08/2013 7:10 AM EDT 50 mL/hr 50 mL/hr moxifloxacin (VIGAMOX) 0.5 % ophthalmic solution 1 drop 1 drop, Right Eye, EVERY 5 MIN, 3 doses, First dose on Tue01/08/13 at 0730, Last dose on Tue01/08/13 at 0740, Day of Surgery (Day of Procedure), Routine Given 01/08/2013 7:28 AM EDT 1 drop Given 01/08/2013 7:23 AM EDT 1 drop Given 01/08/2013 7:17 AM EDT 1 drop PHENYLephrine (MYDFRIN) 2.5 % ophthalmic solution 1 drop 1 drop, Right Eye, EVERY 5 MIN, 3 doses, First dose on Tue01/08/13 at 0730, Last dose on Tue01/08/13 at 0740, Day of Surgery (Day of Procedure), Routine Given 01/08/2013 7:28 AM EDT 1 drop Given 01/08/2013 7:23 AM EDT 1 drop Given 01/08/2013 7:17 AM EDT 1 drop prednisoLONE acetate (PRED FORTE) 1 % ophthalmic suspension 1 drop 1 drop, Right Eye, ONCE, 1 dose, On Tue01/08/13 at 0730, Day of Surgery (Day of Procedure), Routine Given 01/08/2013 7:17 AM EDT 1 drop documented in this encounter Active and Recently Administered Medications Times are shown in EDT. Scheduled Medication Order 01/06/2013 01/07/2013 01/08/2013 atropine 1 % ophthalmic solution 1 drop (COMPLETED) 1 drop, Right Eye, EVERY 5 MIN, 3 doses, First dose on Tue01/08/13 at 0730, Last dose on Tue01/08/13 at 0740, Day of Surgery (Day of Procedure), Routine 07 (Given - Provid er: Maggie Choudhury RN)07 (Given - Provider: Maggie Choudhury RN)0728 (Given - Provider: Maggie Choudhury RN) moxifloxacin (VIGAMOX) 0.5 % ophthalmic solution 1 drop (COMPLETED) 1 drop, Right Eye, EVERY 5 MIN, 3 doses, First dose on Tue01/08/13 at 0730, Last dose on Tue01/08/13 at 0740, Day of Surgery (Day of Procedure), Routine 07 (Given - Provid er: Maggie Choudhury RN)07 (Given - Provider: Maggie Choudhury RN)0728 (Given - Provider: Maggie Choudhury RN) PHENYLephrine (MYDFRIN) 2.5 % ophthalmic solution 1 drop (COMPLETED) 1 drop, Right Eye, EVERY 5 MIN, 3 doses, First dose on Tue01/08/13 at 0730, Last dose on Tue01/08/13 at 0740, Day of Surgery (Day of Procedure), Routine 716 (Given - Provid er: Maggie Choudhury RN)07 (Given - Provider: Maggie Choudhury RN)0728 (Given - Provider: Maggie Choudhury RN) prednisoLONE acetate (PRED FORTE) 1 % ophthalmic suspension 1 drop (COMPLETED) 1 drop, Right Eye, ONCE, 1 dose, On Tue01/08/13 at 0730, Day of Surgery (Day of Procedure), Routine 07 (Given - Provid er: Maggie Choudhury RN) Continuous Medication Order 01/06/2013 01/07/2013 01/08/2013 lactated ringers infusion (CANCELED) 50 mL/hr, Intravenous, CONTINUOUS, Starting on Tue01/08/13 at 0700, Until Tue01/08/13 at 1456, Day of Surgery (Day of Procedure) 0710 (New Bag - Prov ider: Maggie Choudhury RN) PRN Medication Order 01/06/2013 01/07/2013 01/08/2013 acetaminophen (TYLENOL) tablet 650 mg (CANCELED) 650 mg, Oral, EVERY 4 HOURS PRN, Starting on Tue01/08/13 at 0949, Until Tue01/08/13 at 1456, Pain, for MILD pain, Do not exceed 4,000 mg in 24 hours, Routine 1041 (Given - Provid er: Yashira Lai RN) balanced salt (BSS PLUS) irrigation solution (CANCELED) ONCE PRN, Starting on Tue01/08/13 at 0811, Until Tue01/08/13 at 1456, Intra-Operative (Intra-Procedure), Routine 0811 (Given - Provid er: Ruthann Beckett MD) balanced salt (BSS) irrigation solution (CANCELED) ONCE PRN, Starting on Tue01/08/13 at 0816, Until Tue01/08/13 at 1456, Intra-Operative (Intra-Procedure), Routine 0816 (Given - Provid er: Ruthann Beckett MD) balanced salt (BSS) irrigation solution (CANCELED) ONCE PRN, Starting on Tue01/08/13 at 0816, Until Tue01/08/13 at 1456, Intra-Operative (Intra-Procedure), Routine 08 (Given - Provid er: Ruthann Beckett MD) BUpivacaine (PF) (MARCAINE) 0.75 % (7.5 mg/mL) injection (CANCELED) ONCE PRN, Starting on Tue01/08/13 at 0816, Until Tue01/08/13 at 1456, Intra-Operative (Intra-Procedure), Routine 08 (Given - Provid er: Ruthann Beckett MD) ceFAZolin (ANCEF) injection (CANCELED) ONCE PRN, Starting on Tue01/08/13 at 0816, Until Tue01/08/13 at 1456, Intra-Operative (Intra-Procedure), Routine 815 (Given - Provid er: Ruthann Beckett MD - Comment: sc post op) dexamethasone (DECADRON) injection (CANCELED) ONCE PRN, Starting on Tue01/08/13 at 0817, Until Tue01/08/13 at 1456, Intra-Operative (Intra-Procedure), Routine 816 (Given - Provid er: Ruthann Beckett MD - Comment: sc post op) dorzolamide-timolol (COSOPT) 2-0.5 % ophthalmic solution (CANCELED) ONCE PRN, Starting on Tue01/08/13 at 0817, Until Tue01/08/13 at 1456, Intra-Operative (Intra-Procedure), Routine 08 (Given - Provid er: Ruthann Becktet MD) ibuprofen (ADVIL;MOTRIN) tablet 800 mg (CANCELED) 800 mg, Oral, EVERY 6 HOURS PRN, Starting on Tue01/08/13 at 0949, Until Tue01/08/13 at 1456, Pain, for MODERATE pain, Do not administer with ketorolac, Routine 1130 (Given - Provid er: Yashira Lai RN) lidocaine (XYLOCAINE) 20 mg/mL (2 %) injection (CANCELED) ONCE PRN, Starting on Tue01/08/13 at 0817, Until Tue01/08/13 at 1456, Intra-Operative (Intra-Procedure), Routine 816 (Given - Provid er: Ruthann Beckett MD) qlqtzhwc-ghcathrhp-evryuxtinkhv e (DEXACINE) 3.5-10,000-0.1 mg-unit/g-% ophthalmic ointment (CANCELED) ONCE PRN, Starting on Tue01/08/13 at 0817, Until Tue01/08/13 at 1456, Intra-Operative (Intra-Procedure), Routine 08 (Given - Provid er: Ruthann Beckett MD - Comment: 0.25 ml) povidone-iodine 5 % ophthalmic solution (CANCELED) ONCE PRN, Starting on Tue01/08/13 at 0818, Until Tue01/08/13 at 1456, Irritation, Intra-Operative (Intra-Procedure), Routine 0818 (Given - Provid er: Lynda Thompson RN) documented in this encounter Care Teams Recreational Leader Relationship Specialty Start Date End Date Ej Duran MD [address] [place] [address] PCP - General 10/28/11 06/04/18 documented as of this encounter
--- OUTSIDE RECORDS SUMMARY | 2023-12-28 16:40 | XMS_ITS | Encounter Summary ---
Author Organization [facility] [place] [address] [place] [address] Care Team Providers Care Supervisor Grips Name Role Phone Ej Duran MD Primary Care Provider [phone] Reason for Visit * Reason Comments Pseudophakia 1 week s/p YAG CAP O S done 11/15/2013 Encounter Details Date Type Department Care Team (Late st Contact Info) Description 11/23/2013 12:45 PM EDT Office [place] [address] Erasmo Bajwa MD [facility] [place] [address] PCO (posterior capsular opacification), left (Primary Dx) [...] Progress Notes * Erasmo Bajwa MD - 11/23/2013 1:03 PM EDT Assessment/Plan: Maurice Rudolph is a 53 y.o. male with the following ophthalmic issues: 1. 1 week s/p YAG Cap OS - looks excellent 2. Diabetic Maculopathy OS - limits vision Follow up with Dr. Diane - has appt next month. documented in this encounter Plan of Treatment Not on file documented as of this encounter Visit Diagnoses Diagnosis PCO (posterior capsular opacification), left- Primary After-cataract, unspecified documented in this encounter Care Teams Supervisor Grips Relationship Specialty Start Date End Date Ej Duran MD [address] [place] [address] PCP - General 10/28/11 06/04/18 documented as of this encounter
--- OUTSIDE RECORDS SUMMARY | 2023-12-28 16:40 | XMS_ITS | Encounter Summary ---
Author Organization Formerly [facility] [place] [address] Care Team Providers Care Fruit And Vegetable Packer Name Role Phone Ej Duran MD Primary Care Provider [phone] Reason for Visit * Reason Comments Diabetes 1-wk f/u for PDR-OU Encounter Details Date Type Department Care Team (Late st Contact Info) Description 12/04/2013 1:00 PM EDT [place] [address] Matteo Diane MD [facility] [place] [address] Proliferative diabetic retinopathy, both eyes, type 1, without macular edema (Primary Dx) Discharge Disposition: Home Social History [...] Progress Notes * Matteo Diane MD - 12/03/2013 11:[address] Hsu; I had the pleasure seeing Maurice on December 04, 2013. In the right eye, he developed severe and profound ischemic proliferative diabetic retinopathy. Last year when Maurice was very sick, he would not be cleared for local or general anesthesia given his risk of myocardial infarction and . Unfortunately, this allowed for progression of his proliferative diabetic retinopathy and detachment. We attempted several repairs with excellent anatomic attachment. Unfortunately this led to severe scarring and redetachment without viable retina tissue or useful vision. We have decided to leave silicone oil in place. Fortunately, he is not entered into phthisis nor has he developed glaucoma and neovascular changes. In the left eye, he is undergone extensive panretinal laser photocoagulation. A few fine drusen areseen centrally but no macular edema or epiretinal membrane is seen. No active neovascularization isseen. Also in the left eye, he underwent cataract surgery with Dr. Bajwa and is quite happy with his vision at present. Maurice will be seeing you in the next several weeks for continuity of care and will be most interested in a new refraction for both distance and near in the left eye. Next month, he will be moving to [place]. When he secures a retina specialist, he will contact us to forward records. Respectively Matteo Desai MD Physician 09/18/2013 11:36 PM Signed 1. Proliferative diabetic retinopathy, both eyes, type 1, without macular edema 2. Ocular hypertension of right eye. Postop 3. Ischemic diabetic maculopathy, type 1, without macular edema, with proliferative retinopathy 4. IDDM (insulin dependent diabetes mellitus) 5. Acute angle-closure glaucoma of right eye documented in this encounter Plan of Treatment Not on file documented as of this encounter Visit Diagnoses Diagnosis Proliferative diabetic retinopathy, both eyes, type 1, without macular edema- Primary documented in this encounter Care Teams Fruit And Vegetable Packer Relationship Specialty Start Date End Date Ej Duran MD [address] [place] [address] PCP - General 10/28/11 06/04/18 documented as of this encounter
--- OUTSIDE RECORDS SUMMARY | 2023-12-28 16:40 | XMS_ITS | Encounter Summary ---
Author Organization [facility] [place] [address] Care Team Providers Care Back Roller Name Role Phone Ej Duran MD Primary Care Provider [phone] Reason for Visit * Reason Comments Cataract for cat eval os, s/p vtx od, psph od ischemia od, acg od ,vtx, mp, rd repair od SWENDALEAH Ardon Encounter Details Date Type Department Care Team (Late st Contact Info) Description 11/06/2012 3:15 PM EDT [place] [address] Erasmo Bajwa MD [facility] [place] [address] Cataract (Primary Dx); IDDM (insulin dependent diabetes mellitus); Proliferative diabetic retinopathy; Ischemic diabetic maculopathy Discharge Disposition: Home Social History Tobacco Use [...] Progress Notes * Erasmo Bajwa MD - 11/06/2012 4:54 PM EDT Assessment/Plan: Maurice Rudolph is a 52 y.o. male with the following ophthalmic issues: 1. Cataract OS 2. IDDM 3. Involuted PDR s/p PRP OS 4. Ischemic maculopathy OD 5. Diabetic macular edema OS 6. Hyperopia 7. Sleep apnea - cannot sleep on his back, not able to tolerate previous attempt at surgery, neededgeneral anesthesia Comment: The cataract is contributing to his poor vision OS; the maculopathy is also causing poor vision. I am encouraged by the PREMA showing 20/40 potential. Maurice would appreciate any gain in acuity he can get to recover some reading and independence. Discussed cataract surgery, process, recovery, Risks/Benefits/Alternatives, and the option of waiting. AAO cataract surgery pamphlet given to patient. Reviewed the chance of WORSE vision, damage to the eye, need for further treatment or surgery, possible need for strong glasses, imbalance between eyes, other problems possible. Lens options and refractive targets reviewed. Questions answered. Bob Rudolph expresses understanding, requests cataract surgery OS. Amount of astigmatism mild: no toric IOL anticipated Refractive target: slight myopia documented in this encounter Plan of Treatment Not on file documented as of this encounter Procedures Procedure Name Priority Date/Time Associated Diagnosis Comments CATARACT EXTRACTION, EXTRACAPSULAR, W/ LENS INSERTION Routine 11/06/2012 5:02 PM EDT Cataract documented in this encounter Visit Diagnoses Diagnosis Cataract- Primary Unspecified cataract IDDM (insulin dependent diabetes mellitus) Type II or unspecified type diabetes mellitus without mention of complication, not stated as uncontrolled Proliferative diabetic retinopathy(362.02) Proliferative diabetic retinopathy Ischemic diabetic maculopathy Type II or unspecified type diabetes mellitus with ophthalmic manifestations, not stated as uncontrolled documented in this encounter Care Teams Back Roller Relationship Specialty Start Date End Date Ej Duran MD [address] [place] [address] PCP - General 10/28/11 06/04/18 documented as of this encounter
--- OUTSIDE RECORDS SUMMARY | 2023-12-28 16:40 | XMS_ITS | Encounter Summary ---
[place] [address] Care Team Providers Care Ad Operations Associate Name Role Phone Ej Duran MD Primary Care Provider [phone] Reason for Visit * Reason Onset Date Comments Questions 03/01/2013 Encounter Details Date Type Department Care Team (Late st Contact Info) Description 03/01/2013 Telephone [place] [address] Matteo Diane MD [facility] [place] [address] Questions Social History Tobacco Use Types Packs/Day Years [...] encounter Miscellaneous Notes * Telephone Encounter - Celi Lynne COT - 03/02/2013 2:58 PM EDT Spoke with pharmacist, insurance will only cover BRAND Acular 0.5%. Will reprocess. Patient advised. * Telephone Encounter - Matteo Schmidt COA - 03/02/2013 2:46 PM EDT Celi, can you please see what might be covered in this class, acukar, nevenac, etc, thanks * Telephone Encounter - Celi Lynne COT - 03/01/2013 4:35 PM EDT Patient called checking on prior authorization for Ketrolac. [facility] [place] said they faxed request today. Advised patient, will forward to Dr. Diane's educational program assistant for follow up * Telephone Encounter - Maddy West - 03/01/2013 1:55 PM EDT Maurice Rudolph is a 52 y.o. male Patient called to check to see if we have received the prior authorization paperwork for the eyedrop (mabry top) he needs refilled at [facility] in [place], [place] [phone]; please call patient at [phone] documented in this encounter Plan of Treatment Not on file documented as of this encounter Visit Diagnoses Diagnosis Acute angle-closure glaucoma of right eye. History of angle-closure after silicone oil placement when patient was phakic. Acute angle-closure glaucoma Eye pain Pain in or around eye documented in this encounter Care Teams Ad Operations Associate Relationship Specialty Start Date End Date Ej Duran MD [address] [place] [address] PCP - General 10/28/11 06/04/18 documented as of this encounter
--- OUTSIDE RECORDS SUMMARY | 2023-12-28 16:40 | XMS_ITS | Encounter Summary ---
Author Organization [facility] [place] [address] Care Team Providers Care Operations And Maintenance Technican Name Role Phone Ej Duran MD Primary Care Provider [phone] Reason for Visit * Reason Comments Post Op S/P Cataract extract ion w/ IOL OS 11/29/12 (DMM) Encounter Details Date Type Department Care Team (Late st Contact Info) Description 12/05/2012 2:00 PM EDT Office [place] [address] Inocencia Reyes MD [facility] [place] [address] Post-operative state (Primary Dx); Pseudophakia; PDR (proliferative diabetic retinopathy) Discharge Disposition: Home Social History Tobacco Use [...] as of this encounter Progress Notes * Inocencia Reyes MD - 12/05/2012 3:04 PM EDT Maurice Rudolph is a 52 y.o. male POW#1 s/p CE/IOL OS. H/o severe PDR. Stable vision. Normal post op healing appearance, rare cell, clear K. Minimal refractive error. Plan: Decrease PF to TID x [address] Diane Cont ketoralac TID x 2 more weeks D/c vigamox F/u as scheduled with DMM 12/27/12. Cont shield at night one more week Slow return to full activity. No eye rubbing. INOCENCIA REYES MD documented in this encounter Plan of Treatment Not on file documented as of this encounter Visit Diagnoses Diagnosis Post-operative state- Primary Other postprocedural status Pseudophakia Lens replaced by other means PDR (proliferative diabetic retinopathy) Type II or unspecified type diabetes mellitus with ophthalmic manifestations, not stated as uncontrolled documented in this encounter Care Teams Operations And Maintenance Technican Relationship Specialty Start Date End Date Ej Duran MD [address] [place] [address] PCP - General 10/28/11 06/04/18 documented as of this encounter
--- OUTSIDE RECORDS SUMMARY | 2023-12-28 16:40 | XMS_ITS | Encounter Summary ---
Author Organization [facility] [place] [address] Care Team Providers Care Ferryboat Operator Helper Name Role Phone Ej Duran MD Primary Care Provider [phone] Reason for Visit * Reason Onset Date Comments Questions 02/22/2013 pt was told by monse olivas that dmm appointments were not needed Encounter Details Date Type Department Care Team ([facility] st Contact Info) Description 02/22/2013 Telephone [place] [address] Erasmo Bajwa MD [facility] [place] [place] [address] Questions (pt was told by clemente that dmm appointments were not needed) Social History Tobacco Use Types Packs/Day Years [...] on filedocumented in this encounter Care Teams Ferryboat Operator Helper Relationship Specialty Start Date End Date Ej Duran MD [address] [place] [address] PCP - General 10/28/11 06/04/18 documented as of this encounter
--- OUTSIDE RECORDS SUMMARY | 2023-12-28 16:40 | XMS_ITS | Encounter Summary ---
Author Organization [facility] [place] [address] Care Team Providers Care Book Packer Name Role Phone Ej Duran MD Primary Care Provider [phone] Reason for Visit * Reason Comments PDR Patient presents for followup evaluation for severe proliferative diabetic retinopathy in each eye. CBC Encounter Details Date Type Department Care Team (Late st Contact Info) Description 12/05/2012 2:45 PM EDT [place] [address] Matteo Diane MD [facility] [address] [place] [address] Acute angle-closure glaucoma of right eye (Primary Dx); Cataract. Dense with synechiae. Right eye.; IDDM (insulin dependent diabetes mellitus); Proliferative diabetic retinopathy, both eyes Discharge Disposition: [...] Progress Notes * Matteo Diane MD - 12/09/2012 3:49 PM EDT In the right eye, peripheral traction is seen to be evolving but not yet to detachment. The eye is very ischemic and the prognosis is guarded. In the left eye his vision measured 20/70 and system inserted the degree of focal pigmentary changes and atrophy are defined. No neovascularization seen. The intraocular lens implant looked terrific at this time. No signs of rubeosis in either eye. Call if decrease in vision or pain especially in the right eye this may convert to neovascular glaucoma. Return 3-4 weeks for complete dilated examination of both eyes Matteo Diane M.D. documented in this encounter Plan of Treatment Not on file documented as of this encounter Visit Diagnoses Diagnosis Acute angle-closure glaucoma of right eye- Primary Acute angle-closure glaucoma Cataract. Dense with synechiae. Right eye. Unspecified cataract IDDM (insulin dependent diabetes mellitus) Type II or unspecified type diabetes mellitus without mention of complication, not stated as uncontrolled Proliferative diabetic retinopathy, both eyes Type II or unspecified type diabetes mellitus with ophthalmic manifestations, not stated as uncontrolled documented in this encounter Care Teams Book Packer Relationship Specialty Start Date End Date Ej Duran MD [address] [place] [address] PCP - General 10/28/11 06/04/18 documented as of this encounter
--- OUTSIDE RECORDS SUMMARY | 2023-12-28 16:40 | XMS_ITS | Encounter Summary ---
Author Organization [facility] [place] [address] Care Team Providers Care Enterprise Application Architect Name Role Phone Ej Duran MD Primary Care Provider [phone] Reason for Visit * Reason Comments Detached Retina OD 2 day IOP check Encounter Details Date Type Department Care Team (Late st Contact Info) Description 08/03/2012 1:00 PM EDT Office [place] [address] Matteo Diane MD [facility] DR OPHTHALMOLOGY [place] [address] ACG (angle-closure glaucoma) (Primary Dx); Proliferative diabetic retinopathy, both eyes. POD2 TRD repair and removal of retaned lens material; Acute angle-closure glaucoma of right eye Discharge [...] Progress Notes * Matteo Diane MD - 08/03/2012 7:02 PM EDT 1week Continue same meds and postionong for gas ZOILA pain,nausea documented in this encounter Plan of Treatment Not on file documented as of this encounter Visit Diagnoses Diagnosis ACG (angle-closure glaucoma)- Primary Primary angle-closure glaucoma, unspecified Proliferative diabetic retinopathy, both eyes. POD2 TRD repair and removal of retaned lens material Type II or unspecified type diabetes mellitus with ophthalmic manifestations, not stated as uncontrolled Acute angle-closure glaucoma of right eye Acute angle-closure glaucoma documented in this encounter Care Teams Enterprise Application Architect Relationship Specialty Start Date End Date Ej Duran MD [address] [place] [address] PCP - General 10/28/11 06/04/18 documented as of this encounter
--- OUTSIDE RECORDS SUMMARY | 2023-12-28 16:40 | XMS_ITS | Encounter Summary ---
Author Organization [facility] [place] [address] Care Team Providers Care Independent Film Maker Name Role Phone Jarad Keller DNP Primary Care Provider [phone] Encounter Details Date Type Department Care Team (Late st Contact Info) Description 06/08/2018 11:00 AM EST Office Visit Solid [place] [address] Daily, Young Ramirez MD [facility] [place] [address] IDDM (insulin dependent diabetes mellitus); Hypertension, unspecified type; ESRD (end stage renal disease) on dialysis; Pre-transplant evaluation for kidney transplant; Class 2 severe obesity due to excess calories with serious comorbidity and body mass index (BMI) of 39.0 to 39.9 in adult Social History Tobacco Use Types Packs/Day Years [...] as of this encounter Progress Notes * Daily, Young Ramirez MD - 06/08/2018 11:00 AM EST Images from the original note were not included. Initial Evaluation: Kidney Transplantation Date: 06/08/2018 Patient: Maurice Rudolph Today I had the opportunity to meet Maurice Rudolph, whom You had referred to me for evaluation for kidney transplant. As you re aware he is a 58 y.o. male with end-stage end-stage renal disease related to diabetes and hypertension. He tells me he has had a [place] kidney biopsy and this was done somewhere in [place]. He is known about his diabetes for over 25 years he has nephropathy retinopathyand neuropathy in his feet. He has no history of amputations or tissue loss however. His retinopathy was bad enough that he is blind in his right eye. He checks his sugars every day or 2, although lately he has not needed to, since he has not been taking any insulin. He also has a long history of hypertension although is not currently taking medicines for that either. He also has a history of anxiety, but has run out of sertraline. He has class II obesity with a BMI of 39. With regards to his renal failure, he has been on dialysis for almost 2 years. He currently dialyzes Tuesdays and Saturdays through a left Radha AV fistula. He is skipping his dialysis today, and has not made arrangements to have dialysis yesterday or tomorrow. He continues to make a fairly normal amount of urine. He has no other complaints at this time. Problem List: Patient Active Problem List Diagnosis Code ??? Proliferative diabetic retinopathy, both eyes E11.3593 ??? HTN (hypertension) I10 ??? GERD (gastroesophageal reflux disease) K21.9 ??? 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 Hyperopia H52.00 ??? 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 IDDM (insulin dependent diabetes mellitus) E11.9, Z79.4 ??? Ocular hypertension of right eye. Postop H40.051 ??? Eye pain H57.10 ??? Pseudophakia of both eyes Z96.1 ??? PCO (posterior capsular opacification) H26.499 ??? Class 2 severe obesity due to excess calories with serious comorbidity and body mass index (BMI) of 39.0 to 39.9 in adult E66.01, Z68.39 Past Medical History: Past Medical History: Diagnosis [...] ??? Hyperlipidemia ??? Hypertension ??? Neuromuscular disorder Past Surgical History: Past Surgical History: Procedure Laterality Date ??? CATARACT EXTRACTION, EXTRACAPSULAR, W/ LENS INSERTION 11/29/12 OS - DMM ??? CATARACT REMOVAL 07/18/12 OD [facility] ??? PERIPHERAL IRIDOTOMY 04/06/2012 OD [facility] ??? PRO REMV CATARACT EXTRACAP,INSERT LENS 11/29/2012 CATARACT EXTRACTION, EXTRACAPSULAR, W/ LENS INSERTION performed by Erasmo Bajwa MD at [facility] ??? PRO REMV CATARACT EXTRACAP,INSERT LENS,COMP 07/18/2012 ? ? PRO REPAIR COMPLEX RETINA DETACH VITRECTOMY & MEMB PEEL 04/03/2012, 04/03/12 REPAIR COMPLEX RETINAL DETACHMENT, W/ VITRECTOMY, MEMBRANE PEELING performed by Matteo Diane MD at [facility] MAIN OR ? ? PRO REPAIR COMPLEX RETINA DETACH VITRECTOMY & MEMB PEEL 07/31/2012 REPAIR COMPLEX RETINAL DETACHMENT, W/ VITRECTOMY, MEMBRANE PEELING performed by Matteo Diane MD at [facility] MAIN OR ? ? PRO REPAIR COMPLEX RETINA DETACH VITRECTOMY & MEMB PEEL 01/08/2013 REPAIR COMPLEX RETINAL DETACHMENT, W/ VITRECTOMY, MEMBRANE PEELING performed by Matteo Diane MD at [facility] MAIN OR ??? PRO TX EXTENSIVE [...] YAG CAPSULOTOMY 11/15/2013 OS - Dr Bajwa FAMILY HISTORY: Family History Problem Relation Age of Onset [...] Neg Hx ??? Heart Disease Neg Hx SOCIAL HISTORY: Social History Tobacco Use ??? Smoking status: Former Smoker ??? Tobacco comment: stopped 25 years ago Substance Use Topics ??? Alcohol use: No History of Present Illness: Allergies: Patient has no known allergies. Immunizations: Most Recent Immunizations Administered Date(s) Administered ??? Pneumococcal Polyvalent 05/23/2006 Current Meds: No outpatient medications have been marked as taking for the 06/08/18 encounter (Office Visit) with Young Coronado MD. Continuous Infusions: PRN Meds: ROS: A 10 point review of systems was reviewed with the patient with the following pertinent findings: Specifically, the patient denies weight gain or weight loss, fevers or chills. Blind in his right eye. No cough or sore throat. No chest pain or palpitations. No orthopnea. Some dyspnea on exertion. Normal appetite. No reflux. No changes in bowel or bladder habits. No dysuria or hematuria. Gradual onset of muscle weakness. No new skin lesions or rashes. No numbness in bilateral lower extremities. Physical Exam: Wt & BMI By Encounter Date Admission (Discharged) from 01/08/2013 in Same Day Program at [facility] Admission (Discharged) from 11/29/2012 in Outpatient Surgery Center [facility] Weight 103.4 kg (228 lb) (Abnormal) 1 01/08/2013 0640 103.4 kg (228 lb) (Abnormal) 1 11/29/2012 1034 BMI 39.2 1 01/08/2013 0640 39.2 1 11/29/2012 1034 General: comfortable. In no apparent distress. Eyes: EOMI. Without scleral icterus. Mouth: edentulous on top. Neck: supple. No thyromegaly. No lymphadenopathy in neck or supraclavicular fossa. Lungs: Breathing comfortably Heart: regular rate nd rhythm Abdomen: Prominent. Firm. Both subcutaneous and visceral fat. Was not easily deflected. Vascular: femoral faint, Pedal nonpalpable, Radial palpable, good thrill in left Radha AV fistula. Lower extremity: with some edema. Strength: greater than 5/5 and symmetrical Gait: Slow to rise, but able to get on the exam table without assistance unremarkable. Assessment: Mr. Muarice Rudolph is a 58 y.o. male with diabetes type 2 with advanced microvascular complications, hypertension, coronary artery disease with CABG x3 4 years ago, class II obesity with a BMI of almost 40, and end-stage renal disease. He is surprisingly disinterested in his care. I would imaginesomeone who had already lost his sight because of his diabetes would be more anxious about having not taken any of his medicines for the past several weeks, but he was not. Additionally, I was surprised he did not make arrangements to have dialysis on a different day, but simply skipped today. He has poor insight into his disease, combined with his medical comorbidities, and central obesity which will drastically complicate his transplant surgery, suggest to me that he is not going to be a candidate. Still, he is young, so we will have our financial counselors and pharmacist to try to get himsome medicines, while our dietitian counseled him on weight loss. We will have to bring him back inthe future for further evaluation. I spent quite some time with the patient discussing the risks benefits and alternatives to renal transplantation. I specifically addressed surgical risks as well as the general risks of immunosuppression. We talked about delayed graft function, and how graft survival is related to his overall health and adherence as well as the health of the donor. We also discussed different types of donors and the advantages of living donors. All of his questions have been answered. Thank you for sending us this patient to return for putting your dorothy in the [facility] transplant center. We will be discussing his case in our multidisciplinary kidney transplant evaluation committee where I will recommend weight loss, and working on his adherence and follow through, and to return to my clinic in several months. Please do not hesitate to contact me if you have any questions. The number rings directly to my office. Sincerely, Young Coronado. MS, FACS Chief of Solid Organ Transplant [facility] documented in this encounter Plan of Treatment Not on file documented as of this encounter Visit Diagnoses Diagnosis IDDM (insulin dependent diabetes mellitus) Type II or unspecified type diabetes mellitus without mention of complication, not stated as uncontrolled Hypertension, unspecified type ESRD (end stage renal disease) on dialysis End stage renal disease Pre-transplant evaluation for kidney transplant Other specified pre-operative examination Class 2 severe obesity due to excess calories with serious comorbidity and body mass index (BMI) of 39.0 to 39.9 in adult documented in this encounter Care Teams Independent Film Maker Relationship Specialty Start Date End Date Jarad Keller DNP PCP - General Family Medicine 06/05/18 02/09/21 documented as of this encounter
--- OUTSIDE RECORDS SUMMARY | 2023-12-28 16:40 | XMS_ITS | Encounter Summary ---
Author Organization [facility] [place] [address] Care Team Providers Care Customer Manager Name Role Phone Ej Duran MD Primary Care Provider [phone] Reason for Visit * Reason Comments Post Op 3 wk ck s/p repair o f tractional detachment and removal of retained lens material OD 07/31/12 Encounter Details Date Type Department Care Team (Late st Contact Info) Description 08/22/2012 2:00 PM EDT [place] [address] Rylan Gasca MD [facility] [place] [address] Acute angle-closure glaucoma (Primary Dx) Discharge Disposition: Home Social History [...] as of this encounter Progress Notes * Rylan Gasca MD - 08/22/2012 4:03 PM EDT 08/22/2012= ref by dr augustin and sp aacg od, ret surgery with gas, ce od with lens remnants. iol inplace. The iop od is 11 on aquiles, will use qd hs. The angle shows 5hrs of synechial closure superiorly, the rest is wide open and patient can be safely dilated. No fundus view today. Advise stay on aquiles indefinitely and send for glauc consultation when retinal status is resolved if desirred. documented in this encounter Plan of Treatment Not on file documented as of this encounter Visit Diagnoses Diagnosis Acute angle-closure glaucoma- Primary documented in this encounter Care Teams Customer Manager Relationship Specialty Start Date End Date Ej Duran MD [address] [place] [address] PCP - General 10/28/11 06/04/18 documented as of this encounter
--- OUTSIDE RECORDS SUMMARY | 2023-12-28 16:40 | XMS_ITS | Encounter Summary ---
[place] [address] Care Team Providers Care Retort Furnace Operator Name Role Phone Ej Duran MD Primary Care Provider [phone] Encounter Details Date Type Department Care Team (Late st Contact Info) Description 05/15/2018 Telephone [place] [address] Tamar Smith RN Social History Tobacco Use [...] Telephone Encounter - Tamar Bailey RN - 05/15/2018 10:04 AM EST I contacted Maurice Rudolph to get a brief history prior to scheduling for kidney transplant evaluation. Cause of Kidney Disease: Diabetic Nephropathy Dialysis: (Not currently on dialysis) Height: 5'4 Weight: 220 pounds BMI: 37.8 Past Medical History: Diagnosis Date [...] Hypertension ??? Neuromuscular disorder Past Surgical History: Procedure Laterality Date ??? CATARACT EXTRACTION, EXTRACAPSULAR, W/ LENS INSERTION 11/29/12 OS - DMM ??? CATARACT REMOVAL 07/18/12 OD [place] ??? PERIPHERAL IRIDOTOMY 04/06/2012 OD [place] ??? PRO REMV CATARACT EXTRACAP,INSERT LENS 11/29/2012 CATARACT EXTRACTION, EXTRACAPSULAR, W/ LENS INSERTION performed by Erasmo Bajwa MD at [facility] OSC ??? PRO REMV CATARACT EXTRACAP,INSERT LENS,COMP 07/18/2012 ? ? PRO REPAIR COMPLEX RETINA DETACH VITRECTOMY & MEMB PEEL 04/03/2012, 04/03/12 REPAIR COMPLEX RETINAL DETACHMENT, W/ VITRECTOMY, MEMBRANE PEELING performed by Matteo Diane MD at [facility] MAIN OR ? ? PRO REPAIR COMPLEX RETINA DETACH VITRECTOMY & MEMB PEEL 07/31/2012 REPAIR COMPLEX RETINAL DETACHMENT, W/ VITRECTOMY, MEMBRANE PEELING performed by Matteo Diane MD at [facility] MAIN OR ? ? PRO REPAIR COMPLEX RETINA DETACH VITRECTOMY & MEMB PEEL 01/08/2013 REPAIR COMPLEX RETINAL DETACHMENT, W/ VITRECTOMY, MEMBRANE PEELING performed by Matteo Diane MD at [facility] MAIN OR ??? PRO TX EXTENSIVE [...] History Tobacco Use Smoking Status Former Smoker Tobacco Comment stopped 25 years ago Social History Substance and Sexual Activity Drug Use No Do you have any dental issues, do you see a dentist regularly? No teeth Have you ever been in counseling or received psychiatric treatment? Yes, for some weird problems. PTSD. Does your current income meet your monthly needs? Yes Date of Transplant Evaluation: 06/08/2018 Demographics confirmed. documented in this encounter Plan of Treatment Not on file documented as of this encounter Visit Diagnoses Not on filedocumented in this encounter Care Teams Retort Furnace Operator Relationship Specialty Start Date End Date Ej Duran MD [address] [place] [address] PCP - General 10/28/11 06/04/18 documented as of this encounter
--- OUTSIDE RECORDS SUMMARY | 2023-12-28 16:40 | XMS_ITS | Encounter Summary ---
[facility] [place] [place] [address] Care Team Providers Care Dynamotor Repairer Name Role Phone Ej Duran MD Primary Care Provider [phone] Encounter Details Date Type Department Care Team (Late st Contact Info) Description 11/29/2012 12:11 PM EDT Anesthesia Event Outpatient [place] [address] Kim Ellis MD [facility] [place] [address] Ruddy Foy MD [facility] [place] [address] Anesthesia Record Procedure Summary Procedure Name Responsible Anesthesiologist Anesthesia Start Time Anesthesia Stop Time CATARACT EXTRACTION, EXTRACAPSULAR, W/ LENS INSERTION (WRVU 7.35) (Left: Eye) Kim Ellis MD 11/29/12 1211 11/29/12 1243 Events Date Time Event Comment 11/29/2012 1126 1211 AN Verify 1211 Start 1211 An Start Data 1215 Anesthesia Ready 1238 an stop data 1243 Stop Meds Name Total Midazolam 2 mg fentaNYL 100 mcg sodium chloride 0.9% 400 mL * Agents Name O2 Air N2O [...] (LDA cleanup utility RA#[id number]) 07/31/12 0000 by rEa Braden RN 12/28/21 1715 by Morgan Wong (RETIRED) Peripheral IV Line - Single Lumen 11/29/12; 1101; 11/29/12; 1255 11/29/12 1101 by Makenzie Viramontes RN 11/29/12 1255 by Francoise Ang RN Incision 11/29/12; 1223; eye; 12/28/21 (LDA cleanup utility RA#[id number]); 1715 (LDA cleanup utility RA#[id number]) 11/29/12 1223 by Joanna Kirk RN 12/28/21 1715 by Morgan Wong documented in this encounter Social History Tobacco [...] OR Notes * Anesthesia Postprocedure Evaluation - Kim Ellis MD - 11/29/2012 1:31 PM EDT Patient: Maurice Rudolph Procedure(s) Performed: Procedure(s): CATARACT EXTRACTION, EXTRACAPSULAR, W/ LENS INSERTION Actual Anesthetic: MAC Patient location: PACU Post-op pain: none Post-op nausea: none Last Vitals: Filed Vitals: 11/29/12 1243 BP: 133/71 Pulse: 91 Temp: 36.8 ??C (98.2 ??F) Resp: 18 Post-op cardiovascular and respiratory status: stable, checking BG now Level of consciousness: awake Complications: none Fluid Status: normovolemic * Anesthesia Preprocedure Evaluation - Kim Ellis MD - 11/28/2012 7:50 PM EDT Pre-Anesthesia Evaluation for: Maurice Rudolph a 52 y.o. male. Procedure(s): CATARACT EXTRACTION, EXTRACAPSULAR, W/ LENS INSERTION Past Medical History Diagnosis Date ??? Diabetes [...] Cataract. Dense with synechiae. Right eye. 06/21/2012 Sore throat after reintubation DM 170 BG this am, full lantus last night and no insulin this am Back pain w/ laying flat No ISACC No SOB or chest pain, poor fx capacity, blind in R Eye per pt No GERD obesity Past Surgical History Procedure Date ? ? Repair complex retina detach vitrectomy & memb peel 04/03/2012, 04/03/12 REPAIR COMPLEX RETINAL DETACHMENT, W/ VITRECTOMY, MEMBRANE PEELING performed by Matteo Diane MD at [facility] MAIN OR ??? Peripheral iridotomy 04/06/2012 OD [...] COMPLEX performed by Phillip Schwartz MD at [facility] OSC ??? Vitrectomy, w/ membrane stripping 04/03/2012 OD, CBC ? ? Repair complex retina detach vitrectomy & memb peel 07/31/2012 REPAIR COMPLEX RETINAL DETACHMENT, W/ VITRECTOMY, MEMBRANE PEELING performed by Matteo Diane MD at [facility] MAIN OR Got 40-60 mg of propofol in the past, plus / minus versed History Substance Use Topics ??? Smoking status: [...] file to calculate BMI. Airway Assessment: Mallampati: III TM distance: <3 FB Neck ROM: full Cardiovascular Assessment: Rhythm: regular Pulmonary Assessment: Dental Assessment: [facility] Assessment: Other exam findings: Dentures Mustache / sagastume Anesthesia Plan: ASA 3 MAC, with a(n) intravenous induction 52 y/o here for cataract extraction Plan : LMAC, discussed in detail why this technique over general The patient was informed of the risks of anesthesia, and consent was obtained. These risks include,but are not limited to, PONV, pain, intraop awareness (expected), conversion to general anesthesia,and other rare but serious complications such as major organ damage, allergies, blood transfusions,and dental/lip trauma. Informed Consent: Anesthetic plan and risks discussed with patient. Plan discussed with COMMUT[facility] TE[facility]. [facility] Assessment: documented in this encounter Plan of Treatment Not on file documented as of this encounter Visit Diagnoses Not on filedocumented in this encounter Administered Medications Inactive Administered Medications - up to 3 most recent administrations Medication Order MAR Action Action Date Dose Rate Site fentaNYL 50mcg/mL injection PRN, Starting on Tue11/29/12 at 1216, Until Tue11/29/12 at 1244, Pain, Anesthesia Intra-op, Routine Given 11/29/2012 12:34 PM EDT 25 mcg Given 11/29/2012 12:24 PM EDT 25 mcg Given 11/29/2012 12:16 PM EDT 25 mcg midazolam (VERSED) injection PRN, Starting on Tue11/29/12 at 1211, Until Tue11/29/12 at 1244, Sleep, Anesthesia Intra-op, Routine Given 11/29/2012 12:11 PM EDT 2 mg sodium chloride 0.9% infusion CONTINUOUS PRN, Starting on Tue11/29/12 at 1211, Until Tue11/29/12 at 1244, Anesthesia Intra-op New Bag 11/29/2012 12:11 PM EDT mL documented in this encounter Care Teams Dynamotor Repairer Relationship Specialty Start Date End Date Ej Duran MD [address] [place] [address] PCP - General 10/28/11 06/04/18 documented as of this encounter
--- OUTSIDE RECORDS SUMMARY | 2023-12-28 16:40 | XMS_ITS | Encounter Summary ---
Author Organization [facility] [place] [place] [address] Care Team Providers Care Lumber Tripper Name Role Phone Ej Duran MD Primary Care Provider [phone] Reason for Visit * Reason Onset Date Comments Medication Refill 12/01/2012 pt stated he l ost the drops with the mabry cap Encounter Details Date Type Department Care Team (Late st Contact Info) Description 12/01/2012 Ref[place] [address] Erasmo Bajwa MD [facility] [place] [address] Pseudophakia (Primary Dx) Social History Tobacco Use Types Packs/Day Years [...] as of this encounter Visit Diagnoses Diagnosis Pseudophakia- Primary Lens replaced by other means documented in this encounter Care Teams Lumber Tripper Relationship Specialty Start Date End Date Ej Duran MD [address] [place] [address] PCP - General 10/28/11 06/04/18 documented as of this encounter
--- OUTSIDE RECORDS SUMMARY | 2023-12-28 16:40 | XMS_ITS | Encounter Summary ---
Author Organization [facility] [place] [address] Care Team Providers Care Energy Scheduler Name Role Phone Ej Duran MD Primary Care Provider [phone] Reason for Visit * Reason Comments Blurred Vision Patient presents for postoperative evaluation. CBC in Encounter Details Date Type Department Care Team (Late st Contact Info) Description 09/12/2012 3:45 PM EDT Office [place] [address] Matteo Diane MD [facility] [place] [address] Proliferative diabetic retinopathy, both eyes (Primary Dx); Vitreous hemorrhage, right eye; Acute angle-closure glaucoma of right eye Discharge [...] Progress Notes * Matteo Diane MD - 09/12/2012 5:43 PM EDT Patient's right eye demonstrates perfect detachment with severe and profound ischemia is seen. There is a 30% gas bubble. No signs of angle-closure In the left eye he has an early cataract. Focal pigmentary changes are seen the macula but there victoria good pattern of laser treatment no bleeding or edema or other high-risk changes are seen in the left eye Return in 4 weeks for postoperative evaluation of the right eye. Consider cataract surgery consultation for the left eye The extremely guarded prognosis with respect to the right eye was carefully reviewed. Patient to return in: 4 weeks For: dilated exam documented in this encounter Plan of Treatment Not on file documented as of this encounter Visit Diagnoses Diagnosis Proliferative diabetic retinopathy, both eyes- Primary Type II or unspecified type diabetes mellitus with ophthalmic manifestations, not stated as uncontrolled Vitreous hemorrhage, right eye Vitreous hemorrhage Acute angle-closure glaucoma of right eye Acute angle-closure glaucoma documented in this encounter Care Teams Energy Scheduler Relationship Specialty Start Date End Date Ej Duran MD [address] [place] [address] PCP - General 10/28/11 06/04/18 documented as of this encounter
--- OUTSIDE RECORDS SUMMARY | 2023-12-28 16:40 | XMS_ITS | Encounter Summary ---
Author Organization [facility] [place] [address] Care Team Providers Care Mine Motor Operator Name Role Phone Ej Duran MD Primary Care Provider [phone] Encounter Details Date Type Department Care Team (Late st Contact Info) Description 01/08/2013 7:30 AM EDT - 01/08/2013 8:58 AM EDT Surgery [place] [address] Ruthann Beckett MD [facility] [place] [address] REPAIR COMPLEX RETINAL DETACH W/VITRECTOMY, MEMBRANE PEELING, [...] Sign Reading Time Taken Comments Blood Pressure 147/86 01/08/2013 6:40 AM EDT Pulse 81 01/08/2013 6:40 AM EDT Temperature 37 ??C (98.6 ??F) 01/08/2013 6:40 AM EDT Respiratory Rate 16 01/08/2013 6:40 AM EDT Oxygen Saturation 95% 01/08/2013 6:40 AM EDT Inhaled Oxygen Concentration - - [...] all eye drops to tomorrow's appointment. Call [phone] for all questions concerns. Left side down [...] Beckett MD - 01/08/2013 9:38 AM EDT [facility] Operative Note Patient Name: Maurice Rudolph : [id number] MR#: [id number] Case Date: 01/08/2013 Surgeon: Surgeon(s) and Role: * Ruthann Beckett MD - Primary * Lesli Vo PA - Physician [employer] Torque Tester 8:10-9:38=1h 28m SURGICAL STAFF/ASSISTANTS RUTHANN Giordano. Hayley BECKETT, PA PREOPERATIVE DIAGNOSIS: Severe proliferative diabetic tractional retinal [...] capsulectomy with lysis of iris adhesions with bahai of normal configuration of pupil. OPERATIVE INDICATIONS: [...] and fibrosis was easily dissected with good bahai of pupil margin contour. This now provided [...] Operative Note Patient Name: Maurice Rudolph : [id number] MR#: [id number] Case Date: 01/08/2013 Surgeon: Surgeon(s) and Role: * Ruthann Beckett MD - Primary * Lesli Vo PA - Physician [employer] Torque Tester Preoperative diagnosis: RETINAL DETACHMENT Postoperative diagnosis: RETINAL [...] Glucose, POC 111 60 - 199 mg/dL [facility] Comment: Supplemental ranges: <110 mg/dL before meals <200 mg/dL all other times of the day Blood specimen (specimen) 01/08/2013 9:58 AM EDT 01/08/2013 9:58 AM EDT Ruthann Beckett MD POINT OF CARE T EST ORDERABLES Performing Organization Address [facility] Co de Phone Number [facility] * POCT Glucose (01/08/2013 7:19 AM EDT) Glucose, POC 119 60 - 199 mg/dL [facility] Comment: Supplemental ranges: <110 mg/dL before meals <200 mg/dL all other times of the day Blood specimen (specimen) 01/08/2013 7:19 AM EDT 01/08/2013 7:19 AM EDT Ruthann Beckett MD POINT OF CARE T EST ORDERABLES Performing Organization Address [facility] Co de Phone Number [facility] documented in this encounter Visit Diagnoses Diagnosis Retinal detachment Unspecified retinal detachment documented in this encounter Administered Medications Inactive [...] Given 01/08/2013 7:17 AM EDT 1 drop balanced salt (BSS PLUS) irrigation solution ONCE PRN, Starting on Tue01/08/13 at 0811, Until Tue01/08/13 at 1456, Intra-Operative (Intra-Procedure), Routine Given 01/08/2013 8:11 AM EDT 1 Bottle 19- Surgical Site balanced salt (BSS) irrigation solution ONCE PRN, Starting on Tue01/08/13 at 0816, Until Tue01/08/13 at 1456, Intra-Operative (Intra-Procedure), Routine Given 01/08/2013 8:16 AM EDT 1 Bottle 19- Surgical Site balanced salt (BSS) irrigation solution ONCE PRN, Starting on Tue01/08/13 at 0816, Until Tue01/08/13 at 1456, Intra-Operative (Intra-Procedure), Routine Given 01/08/2013 8:16 AM EDT 3 Bottles 19- Surgical Site BUpivacaine (PF) (MARCAINE) 0.75 % (7.5 mg/mL) injection ONCE PRN, Starting on Tue01/08/13 at 0816, Until Tue01/08/13 at 1456, Intra-Operative (Intra-Procedure), Routine Given 01/08/2013 8:16 AM EDT 1.5 mLs 19- Surgical Site ceFAZolin (ANCEF) injection ONCE PRN, Starting on Tue01/08/13 at 0816, Until Tue01/08/13 at 1456, Intra-Operative (Intra-Procedure), Routine Given 01/08/2013 8:16 AM EDT 100 mg 19- Surgical Site dexamethasone (DECADRON) injection ONCE PRN, Starting on Tue01/08/13 at 0817, Until Tue01/08/13 at 1456, Intra-Operative (Intra-Procedure), Routine Given 01/08/2013 8:17 AM EDT 2 mg 19- Surgical Site dorzolamide-timolol (COSOPT) 2-0.5 % ophthalmic solution ONCE PRN, Starting on Tue01/08/13 at 0817, Until Tue01/08/13 at 1456, Intra-Operative (Intra-Procedure), Routine Given 01/08/2013 8:17 AM EDT 1 drop ibuprofen (ADVIL;MOTRIN) tablet [...] 7:10 AM EDT 50 mL/hr 50 mL/hr lidocaine (XYLOCAINE) 20 mg/mL (2 %) injection ONCE PRN, Starting on Tue01/08/13 at 0817, Until Tue01/08/13 at 1456, Intra-Operative (Intra-Procedure), Routine Given 01/08/2013 8:17 AM EDT 1.5 mLs 19- Surgical Site moxifloxacin (VIGAMOX) 0.5 % ophthalmic solution 1 drop 1 drop, Right Eye, EVERY 5 MIN, 3 doses, First dose on Tue01/08/13 at 0730, Last dose on Tue01/08/13 at 0740, Day of Surgery (Day of Procedure), Routine Given 01/08/2013 7:28 AM EDT 1 drop Given 01/08/2013 7:23 AM EDT 1 drop Given 01/08/2013 7:17 AM EDT 1 drop edibvvnu-lpdxnxsmj-rweckbmuhouop (DEXACINE) 3.5-10,000-0.1 mg-unit/g-% ophthalmic ointment ONCE PRN, Starting on Tue01/08/13 at 0817, Until Tue01/08/13 at 1456, Intra-Operative (Intra-Procedure), Routine Given 01/08/2013 8:17 AM EDT 1 Tube PHENYLephrine (MYDFRIN) 2.5 % ophthalmic solution 1 drop 1 drop, Right Eye, EVERY 5 MIN, 3 doses, First dose on Tue01/08/13 at 0730, Last dose on Tue01/08/13 at 0740, Day of Surgery (Day of Procedure), Routine Given 01/08/2013 7:28 AM EDT 1 drop Given 01/08/2013 7:23 AM EDT 1 drop Given 01/08/2013 7:17 AM EDT 1 drop povidone-iodine 5 % ophthalmic solution ONCE PRN, Starting on Tue01/08/13 at 0818, Until Tue01/08/13 at 1456, Irritation, Intra-Operative (Intra-Procedure), Routine Given 01/08/2013 8:18 AM EDT 3 0 mLs prednisoLONE acetate (PRED FORTE) 1 % [...] Day of Surgery (Day of Procedure), Routine 0717 (Given - Provid er: Maggie Choudhury RN) [...] Routine 0816 (Given - Provid er: Ruthann Becktet MD) BUpivacaine (PF) (MARCAINE) 0.75 % (7.5 [...] (Given - Provid er: Ruthann Beckett MD) ibuprofen (ADVIL;MOTRIN) tablet 800 mg (CANCELED) [...] (Given - Provid er: Ruthann Beckett MD) nnjzrdex-nknplneca-snqmnfacyuqy e (DEXACINE) 3.5-10,000-0.1 mg-unit/g-% ophthalmic ointment (CANCELED) ONCE PRN, Starting on Tue01/08/13 at 0817, Until 9/9/13 at 1456, Intra-Operative (Intra-Procedure), Routine 0817 (Given - Provid er: Ruthann Beckett MD - Comment: 0.25 ml) povidone-iodine 5 % ophthalmic solution (CANCELED) ONCE PRN, Starting on 01/08/13 at 0818, Until Tue01/08/13 at 1456, Irritation, Intra-Operative (Intra-Procedure), Routine 0818 (Given - Provid er: Lynda Thompson RN) documented in this encounter Care Teams Mine Motor Operator Relationship Specialty Start Date End Date Ej Duran MD [address] [place] [address] PCP - General 10/28/11 06/04/18 documented as of this encounter
--- OUTSIDE RECORDS SUMMARY | 2023-12-28 16:40 | XMS_ITS | Encounter Summary ---
Author Organization [facility] [place] [address] Care Team Providers Care Food Equipment Service Technician Name Role Phone Ej Duran MD Primary Care Provider [phone] Reason for Visit * Reason Comments Post Op 11 day P/O repair of tractional detachment and removal of retained lens material OD 07/31/12 Encounter Details Date Type Department Care Team (Late st Contact Info) Description 08/10/2012 9:30 AM EDT Office [place] [address] Matteo Diane MD [facility] [place] [address] Hyperopia (Primary Dx); Vitreous hemorrhage, right eye; Proliferative diabetic retinopathy, both eyes; Diabetes mellitus; Cataract. Dense with synechiae. Right [...] Progress Notes * Matteo Diane MD - 08/10/2012 10:53 PM EDT The patient is stable after repeat vitrectomy and gas exchange. Angle is still open and no signs ofclosure seen today. 70-80% gas fill retina attached. Continue seen topical medication Return 7-10 days or immediately if any changes. Continue positioning but do not lay on back Extremely guarded prognosis by virtue of severe and profound ischemia documented in this encounter Plan of Treatment Not on file documented as of this encounter Visit Diagnoses Diagnosis Hyperopia- Primary Hypermetropia Vitreous hemorrhage, right eye Vitreous hemorrhage Proliferative diabetic retinopathy, both eyes Type II or unspecified type diabetes mellitus with ophthalmic manifestations, not stated as uncontrolled Diabetes mellitus Type II or unspecified type diabetes mellitus without mention of complication, not stated as uncontrolled Cataract. Dense with synechiae. Right eye. Unspecified cataract Acute angle-closure glaucoma of right eye Acute angle-closure glaucoma documented in this encounter Care Teams Food Equipment Service Technician Relationship Specialty Start Date End Date jE Duran MD [address] [place] [address] PCP - General 10/28/11 06/04/18 documented as of this encounter
--- OUTSIDE RECORDS SUMMARY | 2023-12-28 16:40 | XMS_ITS | Encounter Summary ---
Author Organization [facility] [place] [address] Care Team Providers Care Metal Melter Name Role Phone Ej Duran MD Primary Care Provider [phone] Reason for Visit * Reason Comments Decreased Visual Acuity Sent by Dr. Jaden velez to evaluate need for possible YAG Capsulotomy OS Encounter Details Date Type Department Care Team ([facility] st Contact Info) Description 10/03/2013 3:45 PM EDT Follow-[place] [address] Erasmo Bajwa MD [facility] [place] [address] PCO (posterior capsular opacification), left (Primary Dx); Pseudophakia of both eyes Discharge Disposition: Home Social History [...] Progress Notes * Erasmo Bajwa MD - 10/03/2013 5:26 PM EDT Assessment/Plan: Maurice Rudolph is a 53 y.o. male with the following ophthalmic issues: 1. PCIOL OU 2. PCO OS - moderate 3. Diabetic maculopathy OS 4. Optic disc atrophy/pallor OS 5. Involuted PDR s/p PRP Comment: The PCO OS is moderate. While the retinopathy is clearly the main problem affecting his vision OS, the PCO presents an added challenge. Discussed YAG capsulotomy, process, recovery, Risks/Benefits/Alternatives, and the option of waiting. AAO Posterior Capsulotomy pamphlet given to patient. Reviewed the chance of WORSE vision, damage to the eye, inflammation, retinal tear and other problems possible. Questions answered. Maurice Rudolph expresses understanding, requests YAG capsulotomy OS. documented in this encounter Plan of Treatment Not on file documented as of this encounter Visit Diagnoses Diagnosis PCO (posterior capsular opacification), left- Primary After-cataract, unspecified Pseudophakia of both eyes Lens replaced by other means documented in this encounter Care Teams Metal Melter Relationship Specialty Start Date End Date Ej Duran MD [address] [place] [address] PCP - General 10/28/11 06/04/18 documented as of this encounter
--- OUTSIDE RECORDS SUMMARY | 2023-12-28 16:40 | XMS_ITS | Encounter Summary ---
Author Organization [facility] [place] [address] Care Team Providers Care Sales And In Home Delivery Specialist Name Role Phone Ej Duran MD Primary Care Provider [phone] Reason for Visit * Reason Comments Post Op Encounter Details Date Type Department Care Team (Late st Contact Info) Description 08/22/2012 3:45 PM EDT Office [place] [address] Matteo Diane MD [facility] [place] [address] Acute angle-closure glaucoma of right eye (Primary Dx); Proliferative diabetic retinopathy, both eyes; Hyperopia Social History Tobacco Use Types Packs/Day Years [...] Progress Notes * Matteo Diane MD - 08/27/2012 9:29 PM EDT 2-3 weeks Guarded OD Stable Continue IOP meds Dilate OU next documented in this encounter Plan of Treatment Not on file documented as of this encounter Visit Diagnoses Diagnosis Acute angle-closure glaucoma of right eye- Primary Acute angle-closure glaucoma Proliferative diabetic retinopathy, both eyes Type II or unspecified type diabetes mellitus with ophthalmic manifestations, not stated as uncontrolled Hyperopia Hypermetropia documented in this encounter Care Teams Sales And In Home Delivery Specialist Relationship Specialty Start Date End Date Ej Duran MD [address] [place] [address] PCP - General 10/28/11 06/04/18 documented as of this encounter
--- OUTSIDE RECORDS SUMMARY | 2023-12-28 16:40 | XMS_ITS | Encounter Summary ---
Author Organization [facility] [place] [address] Care Team Providers Care Search Developer Name Role Phone Ej Duran MD Primary Care Provider [phone] Reason for Visit * Reason Comments Blurred Vision Patient presents for postoperative evaluation of each eye. ESTRELLA Hardy Encounter Details Date Type Department Care Team (Late st Contact Info) Description 12/19/2012 3:45 PM EDT [place] [address] Matteo Diane MD [facility] 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 [place] [address] RE: Maurice Rudolph A#: [id number] Duran: I had the pleasure of seeing Maurice Rudolph in the ophthalmology clinic on 12/19/2012. With respect to this gentleman's left eye, he recently underwent cataract surgery and there has been significant visual improvement. Also, the central macula is dry and there are old focal laser treatment scars. There is an excellent pattern of laser treatment and there are no signs of bleeding or neovascularization. 20/60 vision is the best that this gentleman could achieve in this eye by virtue of his severe diabetic retinopathy and previous history of diabetic macular edema. It is likely this eye will serve him well for many years to come. In the right eye, he has severe and profound proliferative diabetic retinopathy with severe and profound ischemia. He has undergone complex retinal detachment surgery for tractional detachment and developed angle closure in the postoperative period. He is now demonstrating proliferative scar tissue on the surface of the retina. After careful review of the guarded prognosis and the risks and benefits of surgery both ocular and systemic, he would like to undergo surgery under local or general anesthesia. I explained we are reaching a point of diminishing returns and this may very well be the last surgery which could provide useful peripheral vision in the future. As you know, his medical history has been quite unstable with respect to undergoing surgery. This consideration must be paramount in any final decision to proceed with surgery. I anticipate that such surgery would entail one to two hours under general anesthesia. Local anesthesia could be considered if you think general anesthesia is too risky. I have asked Maurice to carefully consider these options. Surgery is reasonable by virtue of the limited tractional tissue, but also because of Maurice's realistic expectations. I look forward to hearing from you regarding this very nice gentleman in the days ahead. Please feel free to contact me with any questions or concerns that you may have. The best way to reach me is through my human resources assistant at [phone]. Respectfully, Matteo Diane MD documented in this encounter Plan of Treatment Not on file documented as of this encounter Visit Diagnoses Diagnosis Acute angle-closure glaucoma of right eye- Primary Acute angle-closure glaucoma IDDM (insulin dependent diabetes mellitus) Type II or unspecified type diabetes mellitus without mention of complication, not stated as uncontrolled Proliferative diabetic retinopathy, both eyes Type II or unspecified type diabetes mellitus with ophthalmic manifestations, not stated as uncontrolled documented in this encounter Care Teams Search Developer Relationship Specialty Start Date End Date Ej Duran MD [address] [place] [address] PCP - General 10/28/11 06/04/18 documented as of this encounter
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
--- OUTSIDE RECORDS SUMMARY | 2023-12-28 16:40 | XMS_ITS | Encounter Summary ---
Author Organization [facility] [place] [address] Care Team Providers Care Commercial Hvac Technician Name Role Phone Ej Duran MD Primary Care Provider Reason for Visit * Reason Comments Post Op Repair of Tractional Detachment OD/ PDR OU Encounter Details Date Type Department Care Team (Late st Contact Info) Description 02/01/2013 2:00 PM EDT Office [place] [address] Matteo Diane MD [facility] [place] [address] Hyperopia; Proliferative diabetic retinopathy, both eyes; Ocular hypertension of right eye. Postop Discharge [...] Progress Notes * Matteo Diane MD - 02/11/2013 9:07 PM EDT Patient stable status post complex vitrectomy for severe and profound ischemia right eye with limited visual potential. Continue observation Left eye stable after recent intraocular lens placement Return 2-3 weeks or sooner if decrease in vision or pain. Safety eyewear recommended at all times documented in this encounter Plan of Treatment Not on file documented as of this encounter Visit Diagnoses Diagnosis Hyperopia Hypermetropia Proliferative diabetic retinopathy, both eyes Type II or unspecified type diabetes mellitus with ophthalmic manifestations, not stated as uncontrolled Ocular hypertension of right eye. Postop Borderline glaucoma with ocular hypertension documented in this encounter Care Teams Commercial Hvac Technician Relationship Specialty Start Date End Date Ej Duran MD [address] [place] [address] PCP - General 10/28/11 06/04/18 documented as of this encounter
--- OUTSIDE RECORDS SUMMARY | 2023-12-28 16:40 | XMS_ITS | Encounter Summary ---
Author [place] [address] Care Team Providers Care National Sales Associate Name Role Phone Ej Duran MD Primary Care Provider [phone] Reason for Visit * Reason Onset Date Comments Eye Pain 02/19/2013 Encounter Details Date Type Department Care Team (Late st Contact Info) Description 02/19/2013 [place] [address] Young Duff MD [facility] [place] [address] Eye Pain Social History Tobacco Use Types Packs/Day Years [...] encounter Miscellaneous Notes * Telephone Encounter - Irving Farias, COMT - 02/19/2013 12:05 PM EDT Discussed at length with patient and Dr Diane. Pt with symptoms of pain radiating towards nose and out towards his ear. 8-9 /10 scale. To come in for IOP check. * Telephone Encounter - Cynthia Nava - 02/19/2013 10:14 AM EDT OD in Pain. Going on for about a week. He is a post-op documented in this encounter Plan of Treatment Not on file documented as of this encounter Visit Diagnoses Not on filedocumented in this encounter Care Teams National Sales Associate Relationship Specialty Start Date End Date Ej Duran MD [address] [place] [address] PCP - General 10/28/11 06/04/18 documented as of this encounter
--- OUTSIDE RECORDS SUMMARY | 2023-12-28 16:40 | XMS_ITS | Encounter Summary ---
[place] [address] Care Team Providers Care Frame And Scrap Crusher Name Role Phone Ej Duran MD Primary Care Provider [phone] Encounter Details Date Type Department Care Team (Late st Contact Info) Description 05/09/2018 Abstract [place] [address] Jessica Santos Social History Tobacco Use Types [...] on filedocumented in this encounter Care Teams Frame And Scrap Crusher Relationship Specialty Start Date End Date Ej Duran MD [address] [place] [address] PCP - General 10/28/11 06/04/18 documented as of this encounter
--- OUTSIDE RECORDS SUMMARY | 2023-12-28 16:40 | XMS_ITS | Encounter Summary ---
Author Organization [facility] [place] [address] Care Team Providers Care Visual Arts Teacher Name Role Phone Ej Duran MD Primary Care Provider [phone] Reason for Visit * Reason Comments Post Op [address] re pair Encounter Details Date Type Department Care Team (Late st Contact Info) Description 01/15/2013 11:15 AM EDT Office [place] [address] Matteo Diane MD [facility] DR OPHTHALM[place] [address] Acute angle-closure glaucoma of right eye; Diabetes mellitus; HTN (hypertension); IDDM (insulin dependent diabetes mellitus); Ischemic diabetic maculopathy; Proliferative diabetic retinopathy, both eyes Discharge Disposition: [...] Progress Notes * Matteo Diane MD - 02/04/2013 9:41 PM EDT Patient stable status post vitrectomy right eye. No signs or detachment or inflammation. No signs of angle-closure. Extremely guarded prognosis by virtue of ischemia right eye. 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
--- OUTSIDE RECORDS SUMMARY | 2023-12-28 16:40 | XMS_ITS | Encounter Summary ---
Author Organization [facility] [place] [address] Care Team Providers Care Director Of Physical Education Name Role Phone Ej Duran MD Primary Care Provider [phone] Reason for Visit * Reason Comments Blurred Vision Patient presents for postoperative evaluation after complex vitrectomy right eye. Indicates his vision in the right eye is stable but perhaps worse at night. Vision in the left eye is also becoming worse. Matteo Diane M.D. Encounter Details Date Type Department Care Team (Late Contact [facility]) Description 10/31/2012 12:45 PM EDT [place] [address] Matteo Diane MD [facility] [place] [address] Proliferative diabetic retinopathy, both eyes. Severe and profound ischemia right eye. Stable PRP and focal laser treatment left eye (Primary Dx); Cataract. Dense with synechiae. Right eye.; Acute angle-closure glaucoma of right eye; Hyperopia; Cataract of left eye Discharge Disposition: Home Social History Tobacco [...] Progress Notes * Matteo Diane MD - 10/31/2012 2:02 PM EDT November 01, 2012 Erasmo Bajwa M.D. [address] [place] [address], [place] [address] Dear Erasmo, I would like to introduce you, . Maurice Rudolph, whom I last saw on 10/31/2012. I am requesting formal consultation to see if cataract surgery might be beneficial for this gentleman's left eye. In the right eye, he has developed severe and profound ischemic diabetic retinopathy. His surgery was very much delayed last year by virtue of severe hypertension precluding any form of local or general anesthesia for vitrectomy surgery in the right eye. His visual prognosis in the right eye has always been guarded. He has undergone extensive panretinal scatter laser photocoagulation in the left eye and fortunately this has been stable without evidence of vitreous retraction or any recent recurrence of vitreous hemorrhage. Maurice presented today measuring CF in the right eye. In the left eye, he measured 20/60 -2, +1 at distance. At near, he measured 20/200 -2. Intraocular pressures were 11 mm OD and 15 mm OS. Slit lamp examination revealed a pseudophakia in the right eye without signs of iris rubeosis. Anterior segment examination of the left eye reveals advanced nuclear sclerosis with vacuoles. Posterior segment examination of the right eye reveals severe optic nerve pallor with severe ischemia. Anatomically, he is stable. There are small areas of residual traction which needs to be followed carefully. In the left eye, he has focal pigmentary chambers from diabetic macular edema in the past, but there are no signs of active edema. The optic nerve also reveals moderate pallor. There was a good pattern of scatter laser photocoagulation, but no signs of neovascularization or active traction. Impression: 1. Severe and profound diabetic retinopathy with severe ischemia and guarded visual prognosis, right eye. 2. Status post panretinal laser photocoagulation, both eyes. 3. History of focal laser treatment, left eye for diabetic macular edema. 4. Pseudophakia, right eye. 5. Clinically significant cataract, left eye. 6. History of angle closure OD s/p gas exchange Discussion: I reviewed with Maurice his guarded prognosis and I am recommending observation for the right eye. He will be returning to see me in four weeks given his risk of a recurrent detachment. In the left eye, he has advanced nuclear sclerosis. He is definitely interested in cataract surgery if this can improve his vision to any degree. Lastly, please note also he has a history of angle closure in the right eye developing after gas bubble placement, which was managed by Dr. Schwartz and this is no longer an active issue OD. I am confident that you will enjoy providing care for this gentleman. Thanking in advance for seeing him. He does have an appointment to see me in four weeks' time. Respectfully, Matteo Diane MD 1. Proliferative diabetic retinopathy, both eyes. Severe and profound ischemia right eye. Stable PRP and focal laser treatment left eye 2. Cataract. Dense with synechiae. Right eye. 3. Acute angle-closure glaucoma of right eye 4. Hyperopia 5. Cataract of left eye documented in this encounter Plan of Treatment Not on file documented as of this encounter Visit Diagnoses Diagnosis Proliferative diabetic retinopathy, both eyes. Severe and profound ischemia right eye. Stable PRP and focal laser treatment left eye- Primary Type II or unspecified type diabetes mellitus with ophthalmic manifestations, not stated as uncontrolled Cataract. Dense with synechiae. Right eye. Unspecified cataract Acute angle-closure glaucoma of right eye Acute angle-closure glaucoma Hyperopia Hypermetropia Cataract of left eye Unspecified cataract documented in this encounter Care Teams Director Of Physical Education Relationship Specialty Start Date End Date Ej Duran MD [address] [place] [address] PCP - General 10/28/11 06/04/18 documented as of this encounter
--- OUTSIDE RECORDS SUMMARY | 2023-12-28 16:40 | XMS_ITS | Encounter Summary ---
Author Organization [facility] [place] [address] Care Team Providers Care Strawhat Sizer Name Role Phone Ej Duran MD Primary Care Provider [phone] Reason for Visit * Reason Comments Post Op Patient is postop da y one status post repair of tractional detachment and removal of retained lens material. ESTRELLA Hardy Encounter Details Date Type Department Care Team (Late st Contact Info) Description 08/01/2012 10:00 AM EDT Office [place] [address] Matteo Diane MD [facility] [place] [address] Retinal detachment, tractional, right eye. Postoperative day one. Stable status post repair with removal of retained lens material on 07/31/12 (Primary Dx); Pseudophakia of right eye; Diabetes mellitus; HTN (hypertension); Hyperopia; Proliferative diabetic retinopathy, both eyes; Ocular hypertension Discharge Disposition: Home Social History Tobacco Use [...] Progress Notes * Matteo Diane MD - 08/05/2012 10:29 PM EDT Patient is stable postoperative day one blood pressure is elevated despite open angles and patent peripheral iridectomies inferiorly Will prescribe Cosopt twice a day and Alphagan 3 times a day return 24-48 hours for pressure check.Consider Diamox but need to check electrolytes status given diabetes and other medical issues. Pred forte and Vigamox 4 times a day and ointment at night Position on side and never on back. Return immediately if any decrease in vision, pain nausea vomiting or any other concerns. documented in this encounter Plan of Treatment Not on file documented as of this encounter Visit Diagnoses Diagnosis Retinal detachment, tractional, right eye. Postoperative day one. 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
--- OUTSIDE RECORDS SUMMARY | 2023-12-28 16:40 | XMS_ITS | Encounter Summary ---
Author Organization [facility] [place] [address] Care Team Providers Care Auditor/Quality Name Role Phone Ej Duran MD Primary Care Provider [phone] Reason for Visit * Reason Comments Eye Pain The patient presents for followup evaluation regarding ocular pain in the right eye. ESTRELLA Hardy Encounter Details Date Type Department Care Team (Late st Contact Info) Description 02/27/2013 2:00 PM EDT Follow-[place] [address] Matteo Diane MD [facility] [place] [address] Acute angle-closure glaucoma of right eye. History of angle-closure after silicone oil placement when patient was phakic.; IDDM (insulin dependent diabetes mellitus); Ischemic diabetic maculopathy; Ocular hypertension of right eye. Postop; Proliferative diabetic retinopathy, both eyes Discharge Disposition: [...] Progress Notes * Matteo Diane MD - 02/27/2013 5:26 PM EDT The patient has been experiencing significant inflammation [...] virtue of the late presentation and profoundischemia. Matteo Diane M.D. documented in this encounter Plan of Treatment Not on file documented as of this encounter Visit Diagnoses Diagnosis Acute angle-closure glaucoma of right eye. History of angle-closure after silicone oil placement when patient was phakic. 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 Postop Borderline glaucoma with ocular hypertension Proliferative diabetic retinopathy, both eyes Type II or unspecified type diabetes mellitus with ophthalmic manifestations, not stated as uncontrolled documented in this encounter Care Teams Auditor/Quality Relationship Specialty Start Date End Date Ej Duran MD [address] [place] [address] PCP - General 10/28/11 06/04/18 documented as of this encounter
--- OUTSIDE RECORDS SUMMARY | 2023-12-28 16:40 | XMS_ITS | Encounter Summary ---
Author [facility] [place] [address] Care Team Providers Care Genetic Supervisor Name Role Phone Ej Duran MD Primary Care Provider [phone] Reason for Visit * Reason Comments Post Op 1 day ck s/p CE/IOL OS Encounter Details Date Type Department Care Team (Late st Contact Info) Description 11/30/2012 10:15 AM EDT Office [place] [address] Erasmo Bajwa MD [facility] [place] [address] Cataract extraction status (Primary Dx) Discharge Disposition: Home Social History [...] Progress Notes * Erasmo Bajwa MD - 11/30/2012 8:34 AM EDT Assessment/Plan: 1. 1 day s/p cataract surgery OS Doing well with a normal post operative appearance. - Prednisolone acetate 1% 6x/d in operative eye - Moxifloxicin 3x/d in operative eye - Ketorolac 3x/d in operative eye - Post op precaution sheet reviewed and given to patient 2. PCIOL OD 3. IDDM with hx PDR and DME 4. HM vision OD Follow up: - 1 week EMS/CBC - sooner as needed - Refract (prelim), dilate prn - probably d/c moxiflox, decrease PF/ket to 0/3 x 2 weeks then D/C. - further med adjustments per CBC - DMM 12/27/12 Safety reviewed! documented in this encounter Plan of Treatment Not on file documented as of this encounter Visit Diagnoses Diagnosis Cataract extraction status- Primary documented in this encounter Care Teams Genetic Supervisor Relationship Specialty Start Date End Date Ej Duran MD [address] [place] [address] PCP - General 10/28/11 06/04/18 documented as of this encounter
--- OUTSIDE RECORDS SUMMARY | 2023-12-28 16:40 | XMS_ITS | Encounter Summary ---
Author Organization [facility] [place] [address] Care Team Providers Care Produce Department Supervisor Name Role Phone Ej Duran MD Primary Care Provider [phone] Encounter Details Date Type Department Care Team (Late st Contact Info) Description 11/29/2012 12:00 PM EDT - 11/29/2012 12:40 PM EDT Surgery [facility] [place] [address] Gabe Bajwa MD [facility] [place] [address] CATARACT EXTRACTION, EXTRACAPSULAR, W/ LENS INSERTION (WRVU 7.35) Social History Tobacco Use Types Packs/Day Years [...] or additional concerns or questions please call: [phone] 8am to5pm. After 5pm, please call [phone] and ask for opthalmology MD supervisor extrusion. documented in this encounter Medications at Time of Discharge Medication Sig Dispensed Refills Start Date End Date gabapentin (NEURONTIN) 300 mg capsule Take 300 mg by mouth 3 times daily. sertraline (ZOLOFT) 25 mg tablet Take 50 mg by mouth daily. furosemide (LASIX) 20 mg tabletIndications:froylan farhana Take 20 mg by mouth daily. Indications: [...] operative team. Monitors were placed by the corporate development analyst. Topical anaesthetic was placed in the left [...] emulsified with the phacoemulsification handpiece in a [id number] fashion. Residual cortical material was removed with the automated irrigation/aspiration unit. The posterior capsule was polished. The capsular bag was inflated with viscoelastic. An Olayinka Model [id number] posterior chamber lens with a 6mm acrylic optic was inspected and found to be without defects, placed in the [place] II pricing coordinator cartridge, and injected into the capsular bag [...] Visit Diagnoses Diagnosis Cataract- Primary Unspecified cataract Cataract Unspecified cataract documented in this encounter Administered [...] Makenzie Viramontes RN)1105 (Given - Provider: Makenzie Virmaontes RN)1110 (Given - Provider: Makenzie Viramontes RN) [...] RN) documented in this encounter Care Teams Produce Department Supervisor Relationship Specialty Start Date End Date Ej Duran MD [address] [place] [address] PCP - General 10/28/11 06/04/18 documented as of this encounter
--- OUTSIDE RECORDS SUMMARY | 2023-12-28 16:41 | XMS_ITS | Encounter Summary ---
Author Organization [facility] [place] [address] Care Team Providers Care Lead Handler Name Role Phone Ej Duran MD Primary Care Provider [phone] Reason for Visit * Reason Comments Post Op Patient presents for postoperative evaluation after diabetic vitrectomy. ESTRELLA Hardy Post Op shared pt with dr. wil lawson Encounter Details Date Type Department Care Team (Late st Contact Info) Description 07/25/2012 2:00 PM EDT Office [place] [address] Matteo Diane MD [facility] [place] [address] Cataract. Dense with synechiae. Right eye. Status post intraocular lens placement with retained lens material right eye. (Primary Dx); Acute angle-closure glaucoma of right eye; Diabetes mellitus; Proliferative diabetic retinopathy, both eyes Discharge Disposition: [...] Progress Notes * Matteo Diane MD - 07/30/2012 9:39 PM EDT A review of the risks and benefits of surgery was undertaken. He has retained lens material in the right eye. We will recommend surgery tickly sometime within the next one to 2 weeks given risk of inflammation and secondary glaucoma The patient's prognosis is extremely guarded by by virtue of severe and profound ischemia as well delay in securing surgical clearance documented in this encounter Plan of Treatment Not on file documented as of this encounter Visit Diagnoses Diagnosis Cataract. Dense with synechiae. Right eye. Status post intraocular lens placement with retained lens material right eye.- Primary Unspecified cataract Acute angle-closure glaucoma of right eye Acute angle-closure glaucoma Diabetes mellitus Type II or unspecified type diabetes mellitus without mention of complication, not stated as uncontrolled Proliferative diabetic retinopathy, both eyes Type II or unspecified type diabetes mellitus with ophthalmic manifestations, not stated as uncontrolled documented in this encounter Care Teams Lead Handler Relationship Specialty Start Date End Date Ej Duran MD [address] [place] [address] PCP - General 10/28/11 06/04/18 documented as of this encounter
--- OUTSIDE RECORDS SUMMARY | 2023-12-28 16:41 | XMS_ITS | Encounter Summary ---
[facility] Organization [facility] [place] [address] Care Team Providers Care Grey Roll Worker Name Role Phone Ej Duran MD Primary Care Provider Encounter Details Date Type Department Care Team (Latest Contact Info) Description 07/18/2012 6:43 AM EDT - 07/18/2012 8:56 AM EDT Hospital Encounter [facility] [place] [address] Lisette Schwartz MD [facility] [place] [address] Discharge Disposition: Home Social History Tobacco Use [...] Sign Reading Time Taken Comments Blood Pressure 156/82 07/18/2012 8:53 AM EDT Pulse 96 07/18/2012 8:53 AM EDT Temperature 37 ??C (98.6 ??F) 07/18/2012 8:38 AM EDT Respiratory Rate 18 07/18/2012 8:53 AM EDT Oxygen Saturation 97% 07/18/2012 8:53 AM EDT Inhaled Oxygen Concentration - - Weight 95.3 kg (210 lb) 07/18/2012 7:02 AM EDT Height 162.6 cm (5' 4) 07/18/2012 7:02 AM EDT Body Mass Index 36.05 07/18/2012 7:02 AM EDT documented in this encounter Discharge Instructions * Discharge Instructions* Francoise Ang RN - 07/18/2012 7:11 AM EDT All preop and post op instructions provided by Dr. Schwartz. Please refer to those printed instructions. You may have received medication before and/or during your procedure, which affect your judgement and reaction time therefore for the next 24 hours: You may be unsteady on your feet, be careful on stairs. Do not smoke if you are alone. Do not drink alcoholic beverages. Do not drive or operate any type of machinery. Do not make important legal decisions. documented in this encounter Medications at Time of Discharge Medication Sig Dispensed Refills Start Date End Date gabapentin (NEURONTIN) 300 mg capsule Take 300 mg by mouth 3 times daily. sertraline (ZOLOFT) 25 mg tablet Take 50 mg by mouth daily. dorzolamide-timolol (COSOPT) 2-0.5 % ophthalmic solution Place 1 drop into the right eye 2 times daily. 10 mL 3 06/21/2012 12/06/2012 brimonidine (ALPHAGAN P) 0.1 % Drop ophthalmic solution Place 1 drop into the right eye 3 times daily. 5 Bottle 3 06/21/2012 07/19/2012 lisinopril-hydrochlo rothiazide (PRINZIDE;ZESTORETIC ) 20-25 mg per tablet Take 2 tablets [...] 24 hr tablet 1000MG, PO, Twice daily 06/23/2006 0 06/08/2018 documented as of this encounter Progress Notes * Eboni Ledbetter RN - 07/18/2012 8:[address] Schwartz in to see pt * Eboni Ledbetter RN - 07/18/2012 8:44 AM EDT D/C instructions given to and reviewed with pt and pt demonstrates good understanding of D/C plans and follow-up; all questions answered. documented in this encounter H&P Notes * Lisette Schwartz MD - 07/18/2012 7:34 AM EDT No interval change in medical history or exam documented in this encounter Miscellaneous Notes * Miscellaneous - Provider, Scanning - 07/18/2012 9:10 PM EDT * Op Note - Lisette Schwartz MD - 07/18/2012 2:59 PM EDT [facility] Operative Note Patient Name: Maurice Rudolph : [id number] MR#: [id number] Case Date: 07/18/2012 Surgeon: Surgeon(s) and Role: * Lisette Schwartz MD - Primary HYSTER DRIVER: Staff. PREOPERATIVE DIAGNOSIS: Mature cataract, right eye. POSTOPERATIVE DIAGNOSIS: Mature cataract, right eye. PROCEDURE PERFORMED: Extracapsular cataract surgery by phacoemulsification with placement of posterior chamber, right eye. Surgery is complex because of mature cataract requiring trypan blue staining of capsule, iris stretching, and implantation of posterior chamber lens in sulcus. COMPLICATIONS: Preexisting posterior capsule tear requiring eye wall placement in sulcus, no signs of vitreous loss. ANESTHESIA: Local block with IV sedation. BLOOD LOSS: Minimal. Mr. Rudolph is a gentleman who has developed a matured cortical cataract of his right eye, he has had previous retinal surgery because of diabetic retinopathy. 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 After consent, Mr. Rudolph was taken to the operative room in appropriate IV lines and monitors were reestablished by the anesthesia staff. Under sedation, he was given a retrobulbar block just inferior to the right eye, along with a facial block just anterior to the right ear. The right eye was then prepped and draped in a sterile fashion. The microscope was swung into place, and attention was turned towards the superior limbus. Paracenteses were made at 10 and 2 o'clock through the clear cornea, and the AC was filled with viscoelastic. A 3-mm superior wound was placed at the limbus at 12 o'clock. The iris was found to be relatively atonic and about 4 mm inside, multiple stretching maneuvers were used to create a pupil of approximately 7 mm. In addition, the cataract was quite white and trypan blue was used to statin the capsule to accomplish a capsulorrhexis in good fashion. At this point, the phaco tip was introduced inside the eye, and gradual sculpting and cracking of the nucleus and cortex was performed. At this time, it was obvious that there was a vertical rent in the posterior capsule, thankfully there was no vitreous prolapse. The nuclear fragments as well as most of the cortical material was carefully removed with a very gentle irrigation and aspiration using a low-flow technique. Again, there was no evidence of vitreous to the wound. Once the cortical remnants were removed, the sulcus was filled with viscoelastic, and the superior wound opened to 4 mm. The alternate posterior chamber lens model [id number] with a power of 25 diopters was folded and inserted across the cataract wound into the sulcus. This worked well, and the lens centered well and located horizontally. Again the pupil was round at this point, with no vitreous prolapse. The superior wound was sewn with a single 10-0 nylon suture in a watertight fashion and the viscoelastic was removed from the eye at the end of the case. Pilocarpine drops as well as Maxitrol ointment were applied to the eye, and the eye was patch-shut with a pressure patch and Gibson shield. Mr. Rudolph tolerated the procedure well under local, and was taken to the recovery room to awaken. He will be seen tomorrow in the eye clinic to remove the patch and check the eye. Disposition: aroused from sedation, and taken to the recovery room in a stable condition Condition: doing well without problems (Please see the Surgical Encounter Summary for any Implant and Specimen details pertinent to this patient.) * Miscellaneous - Provider, Scanning - 07/18/2012 1:24 PM EDT * OR Attestation - Lisette Schwartz MD - 07/18/2012 9:49 AM EDT Attestation: Case Date: 07/18/2012 I performed this procedure without the involvement of a resident. LISETTE SCHWARTZ MD 07/18/2012 * Brief Op Note - Lisette Schwartz MD - 07/18/2012 8:39 AM EDT Brief Operative Note Patient Name: Maurice Rudolph : [id number] MR#: [id number] Case Date: 07/18/2012 Surgeon: Surgeon(s) and Role: * Lisette Schwartz MD - Primary Preoperative diagnosis: cataract Postoperative diagnosis: cataract Procedure(s): CATARACT EXTRACTION, EXTRACAPSULAR, WITH LENS INSERTION, COMPLEX Anesthesia: MAC Findings: PC tear w mature sandra cat Iris stretch Trypan Blue IOL in Sulcus No V loss Complications: above Disposition: aroused from sedation, and taken to the recovery room in a stable condition Condition: doing well without problems (Please see the Surgical Encounter Summary for any Implant and Specimen details pertinent to this patient.) documented in this encounter Plan of Treatment Not on file documented as of this encounter Procedures Procedure Name Priority Date/Time Associated Diagnosis Comments CATARACT EXTRACTION, EXTRACAPSULAR, WITH LENS INSERTION, COMPLEX (WRVU 10.25) 07/18/2012 7:24 AM EDT cataract NURSING COMMUNICATION-PROVI CAITLIN TO RN Routine 07/18/2012 7:14 AM EDT documented in this encounter Results * (ABNORMAL) Retrobulbar, Anterior Segement Anesthesia Type (07/18/2012 7:14 AM EDT) Glucose Fasting? 247 Blood specimen (specimen) 07/18/2012 7:14 AM EDT Lisette Schwartz MD NURSING INFORMATION AL/COMMUNICATION ORDERABLES documented in this encounter Visit Diagnoses Not on filedocumented in this encounter Administered Medications Inactive Administered Medications - up to 3 most recent administrations Medication Order MAR Action Action Date Dose Rate Site cyclopentolate (CYCLODRYL) 1 % ophthalmic solution 1 drop 1 drop, Right Eye, EVERY 5 MIN, 3 doses, First dose on Tue07/18/12 at 0715, Last dose on Tue07/18/12 at 0725, 1 drop to the operative eye every 5 minutes times 3. Start day of surgery, Day of Surgery (Day of Procedure), Routine Given 07/18/2012 7:25 AM EDT 1 drop Given 07/18/2012 7:20 AM EDT 1 drop Given 07/18/2012 7:15 AM EDT 1 drop lactated ringers infusion 1,000 mL 1,000 mL, at 100 mL/hr, Intravenous, CONTINUOUS, Starting on Tue07/18/12 at 0715, Until Tue07/18/12 at 1604, Day of Surgery (Day of Procedure) New Bag 07/18/2012 7:15 AM EDT 1,000 mLs 100 mL/hr moxifloxacin (VIGAMOX) 0.5 % ophthalmic solution 1 drop 1 drop, Right Eye, EVERY 5 MIN, 3 doses, First dose on Tue07/18/12 at 0715, Last dose on Tue07/18/12 at 0725, 1 drop to the operative eye every 5 minutes times 3. Start on the day of surgery. , Day of Surgery (Day of Procedure), Routine Given 07/18/2012 7:25 AM EDT 1 drop Given 07/18/2012 7:20 AM EDT 1 drop Given 07/18/2012 7:15 AM EDT 1 drop PHENYLephrine (MYDFRIN) 2.5 % ophthalmic solution 1 drop 1 drop, Right Eye, EVERY 5 MIN, 3 doses, First dose on Tue07/18/12 at 0715, Last dose on Tue07/18/12 at 0725, 1 drop to the operative eye every 5 minutes times 3. Start on the day of surgery. , Day of Surgery (Day of Procedure), Routine Given 07/18/2012 7:25 AM EDT 1 drop Given 07/18/2012 7:20 AM EDT 1 drop Given 07/18/2012 7:15 AM EDT 1 drop prednisoLONE acetate (PRED FORTE) 1 % ophthalmic suspension 1 drop 1 drop, Right Eye, ONCE, 1 dose, On Tue07/18/12 at 0715, 1 drop to the operative eye once, start on day of surgery, Day of Surgery (Day of Procedure), Routine Given 07/18/2012 7:15 AM EDT 1 drop documented in this encounter Active and Recently Administered Medications Times are shown in EDT. Scheduled Medication Order 07/16/2012 07/17/2012 07/18/2012 cyclopentolate (CYCLODRYL) 1 % ophthalmic solution 1 drop (COMPLETED) 1 drop, Right Eye, EVERY 5 MIN, 3 doses, First dose on Tue07/18/12 at 0715, Last dose on Tue07/18/12 at 0725, 1 drop to the operative eye every 5 minutes times 3. Start day of surgery, Day of Surgery (Day of Procedure), Routine 0715 (Given - Provid er: Francoise Ang RN)0720 (Given - Provider: Francoise Ang RN)0725 (Given - Provider: Francoise Ang RN) moxifloxacin (VIGAMOX) 0.5 % ophthalmic solution 1 drop (COMPLETED) 1 drop, Right Eye, EVERY 5 MIN, 3 doses, First dose on Tue07/18/12 at 0715, Last dose on Tue07/18/12 at 0725, 1 drop to the operative eye every 5 minutes times 3. Start on the day of surgery. , Day of Surgery (Day of Procedure), Routine 07 (Given - Provid er: Francoise Ang RN)0720 (Given - Provider: Francoise Ang RN)0725 (Given - Provider: Francoise Ang RN) PHENYLephrine (MYDFRIN) 2.5 % ophthalmic solution 1 drop (COMPLETED) 1 drop, Right Eye, EVERY 5 MIN, 3 doses, First dose on Tue07/18/12 at 0715, Last dose on Tue07/18/12 at 0725, 1 drop to the operative eye every 5 minutes times 3. Start on the day of surgery. , Day of Surgery (Day of Procedure), Routine 0715 (Given - Provid er: Francoise Ang RN)0720 (Given - Provider: Francoise Ang RN)0725 (Given - Provider: Francoise Ang RN) prednisoLONE acetate (PRED FORTE) 1 % ophthalmic suspension 1 drop (COMPLETED) 1 drop, Right Eye, ONCE, 1 dose, On Tue07/18/12 at 0715, 1 drop to the operative eye once, start on day of surgery, Day of Surgery (Day of Procedure), Routine 07 (Given - Provid er: Francoise Ang RN) Continuous Medication Order 07/16/2012 07/17/2012 07/18/2012 lactated ringers infusion 1,000 mL (CANCELED) 1,000 mL, at 100 mL/hr, Intravenous, CONTINUOUS, Starting on Tue07/18/12 at 0715, Until Tue07/18/12 at 1604, Day of Surgery (Day of Procedure) 0715 ([facility] ider: Francoise Ang RN) documented in this encounter Care Teams Grey Roll Worker Relationship Specialty Start Date End Date Ej Duran MD [address] [place] [address] PCP - General 10/28/11 06/04/18 documented as of this encounter
--- OUTSIDE RECORDS SUMMARY | 2023-12-28 16:41 | XMS_ITS | Encounter Summary ---
[place] [address] Care Team Providers Care Health Analytics Consultant Name Role Phone Ej Duran MD Primary Care Provider [phone] Reason for Visit * Reason Comments Procedure Here for urgent LPI Encounter Details Date Type Department Care Team (Latest Contact Info) Description 04/06/2012 3:15 PM EST Procedure [place] [address] Phillip Schwartz MD 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 The risks and benefits of prophylactic laser iridotomy were explained in detail, and written information regarding the procedure was given to the patient and her family to read. After informed consent was given and signed, Pilocarpine drops were instilled to constrict the pupil. The patient was then taken to the YAG laser room. Proparacaine drops were applied to the eye(s), and the patient was placed in the laser head position with comfort. The YAG laser was found to be ingood working order. Settings are noted below. An Ender YAG iridotomy lens was placed with goniosol. A patient iridotomy was made without complications. Drops were prescribed as noted below. The patient will follow-up for a IOP check in (1) weeks' time, and was told to call if there was any vision loss or eye pain. Power 3.2 mJ x 2 pulse # shots (2) Drops postop postop drops RV (1) wk or sooner if any pain or vision loss documented in this encounter Plan of Treatment Not on file documented as of this encounter Procedures Procedure Name Priority Date/Time Associated Diagnosis Comments IRIDOTOMY/IRIDECTOM Y BY LASER - OD - RIGHT EYE Routine 04/06/2012 2:47 PM EST Acute angle-closure glaucoma of right eye documented in this encounter Results * Iridotomy,/Iridectomy by Laser - OD - RIGHT EYE (04/06/2012 2:47 PM EST) Anatomical Region Laterality Modality Other Narrative 04/06/2012 2:47 PM EST See PN Procedure Note Phillip Schwartz MD - 04/06/2012 See PN Phillip Schwartz MD OPHTHALMOLOGY [facility] ORDERABLES documented in this encounter Visit Diagnoses Diagnosis Acute angle-closure glaucoma of right eye- Primary Acute angle-closure glaucoma documented in this encounter Care Teams Health Analytics Consultant Relationship Specialty Start Date End Date Ej Duran MD [address] [place] [address] PCP - General 10/28/11 06/04/18 documented as of this encounter
--- OUTSIDE RECORDS SUMMARY | 2023-12-28 16:41 | XMS_ITS | Encounter Summary ---
Author Organization [facility] [place] [address] Care Team Providers Care Retail Assistant Store Manager Name Role Phone Ej Duran MD Primary Care Provider Encounter Details Date Type Department Care Team (Late st Contact Info) Description 04/03/2012 9:34 AM EST - 04/03/2012 12:02 PM EST [place] [address] Ruthann Augustin MD [facility] [address] [place] [address] REPAIR COMPLEX RETINAL DETACH W/VITRECTOMY, MEMBRANE PEELING, [...] Sign Reading Time Taken Comments Blood Pressure 176/88 04/03/2012 8:21 AM EST Pulse 87 04/03/2012 8:21 AM EST Temperature 36.6 ??C (97.9 ??F) 04/03/2012 8:21 AM ES T Respiratory Rate 14 04/03/2012 8:21 AM EST Oxygen Saturation 99% 04/03/2012 8:21 AM EST Inhaled Oxygen Concentration - - Weight 97.5 kg (215 lb) 04/03/2012 8:21 AM EST Height 162.6 cm (5' 4) 04/03/2012 8:21 AM EST Body Mass Index 36.9 04/03/2012 8:21 AM EST documented in this encounter Discharge Instructions * Discharge Instructions* Maddy Sen RN - 04/03/2012 1:03 PM EST Images from the original note were not included. POST ANESTHESIA INSTRUCTIONS Go home, rest, use [...] which usually goes away in 12-24 hours. SAME DAY PROGRAM POST-OPERATIVE INSTRUCTIONS CARE OF THE EYE 1. Do not remove eye patch or shield, unless instructed to do so. 2. Take is easy today. Avoid strenuous activities. 3. Bring your eye drops and the Eye Care Kit with you to each visit after your surgery. 4. Resume all your regular medications unless told otherwise 5. It is normal to have a scratchy sensation or mild pain in your eye. If you develop vomiting or severe pain not relieved with pain medication please call. 6. If you are having any problems or have additional concerns or questions please call. [phone] 7. If after hours please call [phone] for the ophthalogy doctor internal controls analyst. [address] ??? [place] [address] ??? [phone] ??? [email or web address] [employer] ??? [facility] ??? [facility] ??? [facility] [place], [place] * Patient Instructions* Gloria Vo PA - 04/03/2012 12:24 PM EST Please keep patch and shield on operated eye until follow up appointment tomorrow. Ice packs over patch and shield as needed for pain. Tylenol 500 mg every four hours as needed for pain. Please bring eye kit and all eye drops to tomorrow's appointment. Call [phone] for all questions concerns. Have patient remain right side down 95% of time. May ambulate to eat and use restroom. documented in this encounter Medications at Time of Discharge Medication Sig Dispensed Refills Start Date End Date gabapentin (NEURONTIN) 300 mg capsule Take 300 mg by mouth 3 times daily. sertraline (ZOLOFT) 25 mg tablet Take 50 mg by mouth daily. lisinopril-hydrochlor othiazide (PRINZIDE;ZESTORETIC) 20-25 mg per tablet [...] as of this encounter H&P Notes * Gloria Vo PA - 04/03/2012 9:21 AM EST No change from previous H+P. Source Note - Gloria Vo PA - 04/03/2012 9:20 AM EST Patient Name: Maurice Rudolph Patient Age: 52 y.o. Birthdate: 1960 Admit date: 04/03/2012 Attending Physician: Ruthann Augustin MD Please see H+P in scanned documents. * Gloria Vo PA - 04/03/2012 9:20 AM EST Patient Name: Maurice Rudolph Patient Age: 52 y.o. Birthdate: 1960 Admit date: 04/03/2012 Attending Physician: Ruthann Augustin MD Please see H+P in scanned documents. documented in this encounter Miscellaneous Notes * Miscellaneous - Provider, Scanning - 04/03/2012 9:36 PM EST * Miscellaneous - Provider, Scanning - 04/03/2012 9:30 PM EST * Miscellaneous - Provider, Scanning - 04/03/2012 9:25 PM EST * Op Note - Ruthann Augustin MD - 04/03/2012 12:30 PM EST [facility] Operative Note Patient Name: Maurice Rudolph : [id number] MR#: [id number] Case Date: 04/03/2012 Surgeon: Surgeon(s) and Role: * Ruthann Augustin MD - Primary * HERVE Edwards - Resident-Certified Alcohol Drug Counselor Preoperative diagnosis: PDR & VIT HEM Postoperative diagnosis: PDR & VIT HEM &TRD Procedure(s): REPAIR COMPLEX RETINAL DETACHMENT, W/ VITRECTOMY, MEMBRANE PEELING General Estimated Blood Loss: 0.1cc Drains: None Disposition: awakened from anesthesia, extubated and taken to the recovery room in a stable condition, having suffered no apparent untoward event. Condition: doing well without problems (Please see the Surgical Encounter Summary for any Implant and Specimen details pertinent to this patient.) SURGICAL STAFF/ASSISTANTS RUTHANN AUGUSTIN M.D. GLORIA VO, P.A. PREOPERATIVE DIAGNOSIS: Nonclearing diabetic vitreous hemorrhage with early tractional membranes. POSTOPERATIVE DIAGNOSIS: Proliferative diabetic retinopathy with vitreous hemorrhage and severe ischemia without evidence of previous laser photocoagulation and shallow tractional macular detachment with numerous fibrovascular membranes in the posterior pole of the midperiphery right eye. ANESTHESIA: General. COMPLICATIONS: None. OPERATION PERFORMED: 1. Pars plana vitrectomy. 2. Membrane peeling complex meticulous including segmentation, delamination, and the use of perfluorocarbon liquid tamponade. 3. Endolaser photocoagulation. 4. Indirect laser photocoagulation 5. Fluid-air exchange. 6. Air-gas exchange (14% C3F8). OPERATIVE INDICATIONS: The patient is a gentleman with severe hypertension who has not been to secure early surgery until now. After careful review of the extremely guarded prognosis as well as the risks, complications, and alternatives including, but not limited to endophthalmitis, poor visual outcome, rubeosis , ischemia, glaucoma, cataract formation, and poor visual prognosis and others. All questions were answered satisfactory, and he was given informed consent. OPERATIVE TECHNIQUE: The patient was ushered to the operating room. Time-out was performed collectively by the by the surgery and anesthesia teams. The patient underwent endotracheal general anesthesia and an intubation. The patient was prepped and draped in usual sterile manner for ophthalmic surgery including Betadine solution and sterile field technique. The eye was addressed and a divided three-port pars plana vitrectomy setup was accomplished. Using extreme care vitrectomy and disengagement of the hyaloid was undertaken including the use of scleral depression to remove extremely dense vitreous blood. Inferiorly there were plaques of hyaloid and blood plastered to the posterior lens surface inferiorly. The cone of the vitreous membranes was carefully incised circumferentially. These membranes were ultimately dissected and removed. Multiple epicenters of neovascularization and fibrovascular proliferation were ascertained. No PRP laser was present anywhere. Intraoperative findings were most notable for shallow tractional macular detachment with numerous epicenter especially superior to the arcades extending traction into the central macula. A small break was defined superonasally and marked with diathermy. Broad sheaths of the membrane of fibrovascular scar tissue required lengthy and meticulous segmentation and delamination using curved-horizontal scissors and Royer forceps. These were ultimately all removed with excellent mobility of the retina including the posterior pole midperiphery and anterior periphery. These membranes were extremely severe with underlying ischemic retina. Perfluorocarbon liquid tamponade allowed removal of the remaining membranes in the midperiphery and also served the flattened retina very nicely. Small retina breaks were presumed to be present inferonasally and supratemporally at the sclerotomy site. The retina flattened completely and there were no residual membranes. Endolaser was then extended from the arcades in to the midperiphery. The indirect laser was then applied from the equator to the anterior periphery to ora sanjuainta. The complete pattern of the laser photocoagulation was applied and there were no evidence of residual traction or bleeding, although the retina appeared markedly ischemic. An air-exchange was then performed removing the aqueous layer first and then perfluorocarbon liquid was removed completely. A minimum period of 10 minutes was awaited to remove residual fluid and to ensure a good gas fill. An air-gas exchange was then performed using 14 % C3F8. This was monitored by the surgeon, diluted by the surgeon, and administered by the surgeon for final closing pressure between 10 and 12 mm. All three sclerotomy sites were closed with 7-0 Vicryl. Conjunctivae and Tenon's were coapted followed by subconjunctival injections of Ancef and dexamethasone. Please note that Sub-Tenon's anesthetic was delivered at the beginning of the case and at the end. Cosopt was placed followed by Maxitrol ointment and sterile eye patch and shield. At the time of this dictation, the patient is undergoing the extubation process. He will be discharge to the discovery room or PACU for observation and will likely be discharged him. He is to return here tomorrow. I have reviewed with the patient's son, the importance of leg exercises and venous thrombosis prevention as well as air way safety. No narcotics or alcohol unless prescribed by the physician. He will return here postoperative #day 1. Total operating time was 118 minutes. * OR Attestation - Ruthann Augustin MD - 04/03/2012 12:29 PM EST Attestation: Case Date: 04/03/2012 I performed this procedure without the involvement of a resident. RUTHANN AUGUSTIN MD 04/03/2012 * Brief Op Note - Ruthann Augustin MD - 04/03/2012 12:28 PM EST Brief Operative Note Patient Name: Maurice Rudolph : [id number] MR#: [id number] Case Date: 04/03/2012 Surgeon: Surgeon(s) and Role: * Ruthann Augustin MD - Primary * HERVE Edwards - Resident-Certified Alcohol Drug Counselor Preoperative diagnosis: PDV & VIT HEM Postoperative diagnosis: PDV & VIT HEM Procedure(s): REPAIR COMPLEX RETINAL DETACHMENT, W/ VITRECTOMY, MEMBRANE PEELING Anesthesia: General Findings: TRD and severe ischemia without PRP Complications: None Fluids: LR Estimated Blood Loss: 0.1cc Drains: None Disposition: awakened from anesthesia, extubated and taken to the recovery room in a stable condition, having suffered no apparent untoward event. Condition: doing well without problems (Please see the Surgical Encounter Summary for any Implant and Specimen details pertinent to this patient.) * Miscellaneous - Provider, Scanning - 04/03/2012 9:12 AM EST documented in this encounter Plan of Treatment Not on file documented as of this encounter Procedures Procedure Name Priority Date/Time Associated Diagnosis Comments POCT GLUCOSE Routine 04/03/2012 1:04 PM EST REPAIR COMPLEX RETINAL DETACH W/VITRECTOMY, MEMBRANE PEELING, DRAINAGE (WRVU 19) Yes 04/03/2012 9:29 AM EST PDV & VIT HEM POCT GLUCOSE Routine 04/03/2012 8:22 AM EST documented in this encounter Results * POCT Glucose (04/03/2012 1:04 PM EST) Glucose, POC 178 60 - 199 mg/dL [facility] Comment: Supplemental ranges: <110 mg/dL before meals <200 mg/dL all other times of the day Blood specimen (specimen) 04/03/2012 1:04 PM EST 04/03/2012 1:04 PM EST Ruthann Augustin MD POINT OF CARE T EST ORDERABLES Performing Organization Address [facility] Co de Phone Number [facility] * POCT Glucose (04/03/2012 8:22 AM EST) Glucose, POC 152 60 - 199 mg/dL [facility] Comment: Supplemental ranges: <110 mg/dL before meals <200 mg/dL all other times of the day Blood specimen (specimen) 04/03/2012 8:22 AM EST 04/03/2012 8:22 AM EST Ruthann Augustin MD POINT OF CARE T EST ORDERABLES Performing Organization Address [facility] Co de Phone Number [facility] documented in this encounter Visit Diagnoses Not on filedocumented in this encounter Administered Medications Inactive Administered Medications - up to 3 most recent administrations Medication Order MAR Action Action Date Dose Rate Site atropine 1 % ophthalmic solution 1 drop 1 drop, Right Eye, EVERY 5 MIN, 3 doses, First dose on Tue04/03/12 at 0845, Last dose on Tue04/03/12 at 0855, Day of Surgery (Day of Procedure), Routine Given 04/03/2012 8:35 AM EST 1 drop Given 04/03/2012 8:30 AM EST 1 drop Given 04/03/2012 8:25 AM EST 1 drop balanced salt (BSS PLUS) irrigation solution ONCE PRN, Starting on Tue04/03/12 at 1017, Until Tue04/03/12 at 1724, Intra-Operative (Intra-Procedure), Routine Given 04/03/2012 11:21 AM EST 500 mLs 19- Surgical Site Given 04/03/2012 10:17 AM EST 500 mLs 1 9- Surgical Site balanced salt (BSS) irrigation solution ONCE PRN, Starting on Tue04/03/12 at 1017, Until Tue04/03/12 at 1724, Intra-Operative (Intra-Procedure), Routine Given 04/03/2012 10:17 AM EST 45 mLs 19- Surgical Site balanced salt (BSS) irrigation solution ONCE PRN, Starting on Tue04/03/12 at 1018, Until Tue04/03/12 at 1724, Intra-Operative (Intra-Procedure), Routine Given 04/03/2012 10:18 AM EST 500 mLs 19- Surgical Site BUpivacaine (PF) (MARCAINE) 0.75 % (7.5 mg/mL) injection ONCE PRN, Starting on Tue04/03/12 at 1021, Until Tue04/03/12 at 1724, Intra-Operative (Intra-Procedure), Routine Given 04/03/2012 10:15 AM EST 1.5 mLs 19- Surgical Site ceFAZolin (ANCEF) injection ONCE PRN, Starting on Tue04/03/12 at 1018, Until Tue04/03/12 at 1724, Intra-Operative (Intra-Procedure), Routine Given 04/03/2012 10:18 AM EST 100 mg 19- Surgical Site dexamethasone (DECADRON) injection ONCE PRN, Starting on Tue04/03/12 at 1019, Until Tue04/03/12 at 1724, Intra-Operative (Intra-Procedure), Routine Given 04/03/2012 10:19 AM EST 2 mg 19- Surgical Site dextrose 50% injection ONCE PRN, Starting on Tue04/03/12 at 1019, Until Tue04/03/12 at 1724, Low blood sugar, Intra-Operative (Intra-Procedure), Routine Given 04/03/2012 11:23 AM EST 3 mLs Given 04/03/2012 10:19 AM EST 3 mLs dorzolamide-timolol (COSOPT) 2-0.5 % ophthalmic solution ONCE PRN, Starting on Tue04/03/12 at 1020, Until Tue04/03/12 at 1724, Intra-Operative (Intra-Procedure), Routine Given 04/03/2012 10:20 AM EST 1 drop lactated ringers infusion 1,000 mL 1,000 mL, at 100 mL/hr, Intravenous, CONTINUOUS, Starting on 04/03/12 at 0845, Until Tue04/03/12 at 1724, Day of Surgery (Day of Procedure) New Bag 04/03/2012 8:45 AM EST 1,000 mLs 100 mL/hr moxifloxacin (VIGAMOX) 0.5 % ophthalmic solution 1 drop 1 drop, Right Eye, EVERY 5 MIN, 3 doses, First dose on Tue04/03/12 at 0845, Last dose on Tue04/03/12 at 0855, Day of Surgery (Day of Procedure), Routine Given 04/03/2012 8:36 AM EST 1 drop Given 04/03/2012 8:31 AM EST 1 drop Given 04/03/2012 8:26 AM EST 1 drop bvdvndio-wuhgnzaij-xhjdzpoqsebey (DEXACINE) 3.5-10,000-0.1 mg-unit/g-% ophthalmic ointment ONCE PRN, Starting on Tue04/03/12 at 1022, Until Tue04/03/12 at 1724, Intra-Operative (Intra-Procedure), Routine Given 04/03/2012 10:22 AM EST 0.25 Tubes PHENYLephrine (MYDFRIN) 2.5 % ophthalmic solution 1 drop 1 drop, Right Eye, EVERY 5 MIN, 3 doses, First dose on 04/03/12 at 0845, Last dose on Tue04/03/12 at 0855, Day of Surgery (Day of Procedure), Routine Given 04/03/2012 8:36 AM EST 1 drop Given 04/03/2012 8:31 AM EST 1 drop Given 04/03/2012 8:26 AM EST 1 drop povidone-iodine 5 % ophthalmic solution ONCE PRN, Starting on Tue04/03/12 at 1004, Until Tue04/03/12 at 1724, Irritation, Intra-Operative (Intra-Procedure), Routine Given 04/03/2012 10:04 AM EST 30 mLs prednisoLONE acetate (PRED FORTE) 1 % ophthalmic suspension 1 drop 1 drop, Right Eye, ONCE, 1 dose, On Tue04/03/12 at 0845, Day of Surgery (Day of Procedure), Routine Given 04/03/2012 8:36 AM EST 1 drop sterile water injection ONCE PRN, Starting on Tue04/03/12 at 1022, Until Tue04/03/12 at 1724, Intra-Operative (Intra-Procedure), Routine Given 04/03/2012 10:22 AM EST 2.5 mLs 20-Other (document i n comment section) documented in this encounter Active and Recently Administered Medications Times are shown in EST. Scheduled Medication Order 2012 04/02/2012 04/03/2012 atropine 1 % ophthalmic solution 1 drop (COMPLETED) 1 drop, Right Eye, EVERY 5 MIN, 3 doses, First dose on Tue04/03/12 at 0845, Last dose on Tue04/03/12 at 0855, Day of Surgery (Day of Procedure), Routine 08 (Given - Provid er: Nettie Bailey RN)0830 (Given - Provider: Nettie Bailey RN)0835 (Given - Provider: Nettie Bailey RN) moxifloxacin (VIGAMOX) 0.5 % ophthalmic solution 1 drop (COMPLETED) 1 drop, Right Eye, EVERY 5 MIN, 3 doses, First dose on Tue04/03/12 at 0845, Last dose on Tue04/03/12 at 0855, Day of Surgery (Day of Procedure), Routine 08 (Given - Provid er: Nettie Bailey RN)0831 (Given - Provider: Nettie Bailey RN)0836 (Given - Provider: Nettie Bailey RN) PHENYLephrine (MYDFRIN) 2.5 % ophthalmic solution 1 drop (COMPLETED) 1 drop, Right Eye, EVERY 5 MIN, 3 doses, First dose on Tue04/03/12 at 0845, Last dose on Tue04/03/12 at 0855, Day of Surgery (Day of Procedure), Routine 08 (Given - Provid er: Nettie Bailey RN)0831 (Given - Provider: Nettie Bailey RN)0836 (Given - Provider: Nettie Bailey RN) prednisoLONE acetate (PRED FORTE) 1 % ophthalmic suspension 1 drop (COMPLETED) 1 drop, Right Eye, ONCE, 1 dose, On Tue04/03/12 at 0845, Day of Surgery (Day of Procedure), Routine 0836 (Given - Provid er: Nettie Bailey RN) Continuous Medication Order 2012 04/02/2012 04/03/2012 lactated ringers infusion 1,000 mL (CANCELED) 1,000 mL, at 100 mL/hr, Intravenous, CONTINUOUS, Starting on Tue04/03/12 at 0845, Until Tue04/03/12 at 1724, Day of Surgery (Day of Procedure) 0845 (New Bag - Prov ider: Nettie Bailey RN) PRN Medication Order 2012 04/02/2012 04/03/2012 balanced salt (BSS PLUS) irrigation solution (CANCELED) ONCE PRN, Starting on Tue04/03/12 at 1017, Until Tue04/03/12 at 1724, Intra-Operative (Intra-Procedure), Routine 1017 (Given - Provid er: Ruthann Augustin MD)1121 (Given - Provider: Ruthann Augustin MD) balanced salt (BSS) irrigation solution (CANCELED) ONCE PRN, Starting on Tue04/03/12 at 1017, Until Tue04/03/12 at 1724, Intra-Operative (Intra-Procedure), Routine 1017 (Given - Provid er: Ruthann Augustin MD) balanced salt (BSS) irrigation solution (CANCELED) ONCE PRN, Starting on Tue04/03/12 at 1018, Until Tue04/03/12 at 1724, Intra-Operative (Intra-Procedure), Routine 1018 (Given - Provid er: Ruthann Augustin MD) BUpivacaine (PF) (MARCAINE) 0.75 % (7.5 mg/mL) injection (CANCELED) ONCE PRN, Starting on 04/03/12 at 1021, Until Tue04/03/12 at 1724, Intra-Operative (Intra-Procedure), Routine 1015 (Given - Provid er: Ruthann Augustin MD - Comment: mixed with 2% lidocaine 1:1) ceFAZolin (ANCEF) injection (CANCELED) ONCE PRN, Starting on Tue04/03/12 at 1018, Until Tue04/03/12 at 1724, Intra-Operative (Intra-Procedure), Routine 1018 (Given - Provid er: Ruthann Augustin MD - Comment: dr. augustin aware of allergy to penicillin post op subconjunctival injection) dexamethasone (DECADRON) injection (CANCELED) ONCE PRN, Starting on Tue04/03/12 at 1019, Until 04/03/12 at 1724, Intra-Operative (Intra-Procedure), Routine 1019 (Given - Provid er: Ruthann Augustin MD - Comment: post op subconjunctival injection) dextrose 50% injection (CANCELED) ONCE PRN, Starting on Tue04/03/12 at 1019, Until Tue04/03/12 at 1724, Low blood sugar, Intra-Operative (Intra-Procedure), Routine 1019 (Given - Provid er: Ruthann Augustin MD - Comment: mixed with 500ml BSS Plus)1123 (Given - Provider: Ruthann Augustin MD - Comment: mixed with 500ml BSS Plus) dorzolamide-timolol (COSOPT) 2-0.5 % ophthalmic solution (CANCELED) ONCE PRN, Starting on Tue04/03/12 at 1020, Until Tue04/03/12 at 1724, Intra-Operative (Intra-Procedure), Routine 1020 (Given - Provid er: Ruthann Augustin MD - Comment: post op) ntedxjxe-twbasmfjp-tourzeldxi one (DEXACINE) 3.5-10,000-0.1 mg-unit/g-% ophthalmic ointment (CANCELED) ONCE PRN, Starting on Tue04/03/12 at 1022, Until Tue04/03/12 at 1724, Intra-Operative (Intra-Procedure), Routine 1022 (Given - Provid er: Ruthann Augustin MD - Comment: post op) povidone-iodine 5 % ophthalmic solution (CANCELED) ONCE PRN, Starting on Tue04/03/12 at 1004, Until Tue04/03/12 at 1724, Irritation, Intra-Operative (Intra-Procedure), Routine 1004 (Given - Provid er: Ruthann Augustin MD - Comment: prep) sterile water injection (CANCELED) ONCE PRN, Starting on Tue04/03/12 at 1022, Until Tue04/03/12 at 1724, Intra-Operative (Intra-Procedure), Routine 1022 (Given - Provid er: Ruthann Augustin MD - Comment: mixed with cefazolin) documented in this encounter Care Teams Retail Assistant Store Manager Relationship Specialty Start Date End Date Ej Duran MD [address] [place] [address] PCP - General 10/28/11 06/04/18 documented as of this encounter
--- OUTSIDE RECORDS SUMMARY | 2023-12-28 16:41 | XMS_ITS | Encounter Summary ---
Author Organization [facility] [address] Care Team Providers Care Finance Broker Name Role Phone Ej Duran MD Primary Care Provider [phone] Encounter Details Date Type Department Care Team (Late st Contact Info) Description 04/03/2012 9:33 AM EST Anesthesia Event [place] [address] Marquise Garcia MD [facility] DR ANESTHESIOLOGY [place] [address] Anesthesia Record Procedure Summary Procedure Name Responsible Anesthesiologist Anesthesia Start Time Anesthesia Stop Time REPAIR COMPLEX RETINAL DETACH W/VITRECTOMY, MEMBRANE PEELING, DRAINAGE (WRVU 19) (Right: Eye) Marquise Garcia MD 04/03/12 0933 04/03/12 1247 Events Date Time Event Comment 04/03/2012 0919 0933 Start 1247 Stop Meds * Agents No agents on file. * Blood No blood administrations on file. Lines, Drains, and Airways Type Details Placement Removal (RETIRED) Peripheral IV Line - Single Lumen 04/03/12; 0837; 04/03/12; 1505 04/03/12 0837 by Nettie Bailey RN 04/03/12 1505 by Maddy Sen RN Incision 04/03/12; 1013; eye; 12/28/21 (LDA cleanup utility RA#[id number]); 1715 (LDA cleanup utility RA#[id number]) 04/03/12 1013 by Era Braden RN 12/28/21 1715 by Morgan Wong documented [...] OR Notes * Anesthesia Postprocedure Evaluation - Marquise Garcia - 04/03/2012 3:29 PM EST Patient: Maurice Rudolph Procedure(s) Performed: Procedure(s): REPAIR COMPLEX RETINAL DETACHMENT, W/ VITRECTOMY, MEMBRANE PEELING Patient location: PACU (SDP) Post-op pain: Adequate analgesia; he did note some pain in operated eye. He also had a sore throat. (explained about his apparent laryngospasm event upon extubation and need for reintubation. As his anatomy is not really easy, he would be more likely to have a (hopefully transient) sore throat. Post-op nausea: no nausea or vomiting Last Vitals: Filed Vitals: 04/03/12 1424 BP: 147/80 Pulse: Temp: Resp: 18 Post-op cardiovascular and respiratory status: is stable; VSS stable with excellent BP for him. SpO2 94% on RA (lying on R side) Level of consciousness: awake, alert and oriented; lying on side for gas bubble in R eye. Complications: no apparent complications, tolerated the procedure well and no evidence of recall Fluid Status: normal * Anesthesia Preprocedure Evaluation - Marquise Garcia - 04/03/2012 9:10 AM EST Today I evaluated Maurice Rudolph a 52 y.o. male. Procedure(s): REPAIR COMPLEX RETINAL DETACHMENT, W/ VITRECTOMY, MEMBRANE PEELING Patient Active Problem List Diagnoses ??? HTN (hypertension) ??? GERD (gastroesophageal reflux disease) ??? Vitreous hemorrhage, right eye ??? Proliferative diabetic retinopathy, both eyes ??? Diabetes mellitus Past Medical History Diagnosis Date ??? Diabetes mellitus ??? DM eyes ??? Arthritis ??? Anxiety ??? Hyperlipidemia ??? Hypertension ??? Neuromuscular disorder Past Surgical History Procedure Date ??? Tx extensive retinopathy, photocoagulation 07/06/2011 OS CBC ??? Tx extensive retinopathy, photocoagulation 07/27/2011 OS CBC ??? Tx extensive retinopathy, photocoagulation 09/21/2011 OS CBC ??? Tx extensive retinopathy, photocoagulation 12/20/2011 OS MANN ??? Tx extensive retinopathy, photocoagulation 01/04/2012 OS MANN History Substance Use Topics ??? Smoking status: [...] full Cardiovascular Assessment: Rhythm: regular Rate: normal (-) murmur cardiovascular exam normal Pulmonary Assessment: breath sounds clear to auscultation pulmonary exam normal Dental Assessment: Misc Assessment: Patient is wearing No contact(s). IV access: Peripheral line Other exam findings: Edentulous. No removeables. Anesthesia Plan: ASA 3 general, with a(n) intravenous induction Anesthesiology Staff (Jose): Pre-op note as per above. I have reviewed the history, available records and diagnostic data, then formulated and discussed the anesthetic plan with patient and Dr. Diane. He was previously canceled for poorly controlled HTN. Now improved (176/88 today.) Anesthetic alternatives (where appropriate), procedures, risks (minor to major) and consent for anesthesia were reviewed. He prefers GA but accepts either. All questions have been answered and the consent formsigned. Plan: GA/OETT;routine monitors. Planned SDP discharge to home today. Informed Consent: Anesthetic plan and risks discussed with patient. Plan discussed with SHANK CARRIER. [facility]. Assessment: documented in this encounter Miscellaneous Notes * Addendum Note - Adilene Kelsey - 04/04/2012 10:34 AM EST Addendum created 04/04/12 1034 by Adilene Kelsey Modules edited:Anesthesia Events, Anesthesia Responsible Staff, SmartForms SmartFormsVN Section for SmartForms 266 documented in this encounter Plan of Treatment Not on file documented as of this encounter Visit Diagnoses Not on filedocumented in this encounter Care Teams Finance Broker Relationship Specialty Start Date End Date Ej Duran MD [address] [place] [address] PCP - General 10/28/11 06/04/18 documented as of this encounter
--- OUTSIDE RECORDS SUMMARY | 2023-12-28 16:41 | XMS_ITS | Encounter Summary ---
Author Organization [facility] [place] [address] Care Team Providers Care Manager Product Name Role Phone Ej Duran MD Primary Care Provider [phone] Reason for Visit * Reason Comments Post Op s/p 1 day retinal de tachment repair with vitrectomy and membrane peel OD Encounter Details Date Type Department Care Team (Late st Contact Info) Description 04/05/2012 10:45 AM EST [place] [address] Matteo Diane MD [facility] [place] [address] Proliferative diabetic retinopathy, both eyes; Diabetes mellitus; Acute angle-closure glaucoma of right eye Discharge [...] Progress Notes * Matteo Diane MD - 04/09/2012 4:34 PM EST Proceed with urgent removal of gas and possible peripheral iridectomy. Return one day. Gas removed and pressure 6 millimeters. documented in this encounter Plan of Treatment Not on file documented as of this encounter Visit Diagnoses Diagnosis Proliferative diabetic retinopathy, both eyes Type II or unspecified type diabetes mellitus with ophthalmic manifestations, not stated as uncontrolled Diabetes mellitus Type II or unspecified type diabetes mellitus without mention of complication, not stated as uncontrolled Acute angle-closure glaucoma of right eye Acute angle-closure glaucoma documented in this encounter Care Teams Manager Product Relationship Specialty Start Date End Date Ej Duran MD [address] [place] [address] PCP - General 10/28/11 06/04/18 documented as of this encounter
--- OUTSIDE RECORDS SUMMARY | 2023-12-28 16:41 | XMS_ITS | Encounter Summary ---
Author Organization [facility] [place] [address] Care Team Providers Care Permit Coordinator Name Role Phone Edi Petros SAXENA Primary Care Provider [phone] Reason for Visit * Reason Comments Blurred Vision pt did not need Lase r today-see prog. notes. Vision getting worse OD. OS better after initail laser OS CBC Encounter Details Date Type Department Care Team (Late st Contact Info) Description 07/27/2011 9:15 AM EDT Procedure [place] [address] Ruthann Beckett MD [facility] [address] Diabetic retinopathy (Primary Dx); Proliferative diabetic retinopathy, both eyes; Vitreous hemorrhage, right eye; Diabetes mellitus; Blurred vision Discharge Disposition: Home Social History Tobacco Use Types Packs/Day Years Used Date Smoking Tobacco: Former Alcohol Use Standard Drinks/Week Comments No 0 (1 standard drink = 0.6 oz pur e alcohol) Sex and Gender Information Value Date Recorded Sex Assigned at Not on file Gender Identity Not on file Sexual Orientation Not on file documented as of this encounter Progress Notes * Ruthann Beckett MD - 07/27/2011 8:16 PM EDTAddended by: RUTHANN BECKETT on: 07/27/2011 Modules accepted: Level of Service * Ruthann Beckett MD - 07/27/2011 1:19 PM EDT Good initail laser OS but will need more PRP VH is worse OD. Risks and benefits of vitrectomy reviewed especially given lack of previous PRP. 1-3 weeks vitrectomy OD documented in this encounter Nursing Notes * 07/27/2011 9:15 AM EDT >> RUTHANN BECKETT MD [facility] Jul 27, 2011 8:16 PM OD getting worse in the past 2 weeks ESTRELLA FERRO documented in this encounter Plan of Treatment Not on file documented as of this encounter Visit Diagnoses Diagnosis Diabetic retinopathy- Primary Type II or unspecified type diabetes mellitus with ophthalmic manifestations, not stated as uncontrolled Proliferative diabetic retinopathy, both eyes Type II or unspecified type diabetes mellitus with ophthalmic manifestations, not stated as uncontrolled Vitreous hemorrhage, right eye Vitreous hemorrhage Diabetes mellitus Type II or unspecified type diabetes mellitus without mention of complication, not stated as uncontrolled Blurred vision Other specified visual disturbances documented in this encounter Care Teams Permit Coordinator Relationship Specialty Start Date End Date Petros Daley DO [address] [place] [address] PCP - General 06/15/11 10/27/11 documented as of this encounter
--- OUTSIDE RECORDS SUMMARY | 2023-12-28 16:41 | XMS_ITS | Encounter Summary ---
Author Organization [facility] [place] [address] Care Team Providers Care Asset Protection Associate Name Role Phone Ej Duran MD Primary Care Provider [phone] Reason for Visit * Reason Comments Post Op tearfor management o fangle-closure Eye Exam sees OD at [facility] (?name) Encounter Details Date Type Department Care Team (Late st Contact Info) Description 04/06/2012 1:00 PM EST Office [place] [address] Matteo Diane MD [facility] [place] [address] Vitreous hemorrhage, right eye; Proliferative diabetic retinopathy, both eyes; Acute angle-closure glaucoma of right eye Discharge [...] Notes * Matteo Diane MD - 04/09/2012 8:34 PM EST 2 glaucoma service now for emergency laser iridotomy. Continue medication and regimen. Retina service one week. Retina still nicely attached after complex vitrectomy and membrane peelingfor severe ischemic tractional detachment documented in this encounter Plan of Treatment Not on file documented as of this encounter Visit Diagnoses Diagnosis Vitreous hemorrhage, right eye Vitreous hemorrhage Proliferative diabetic retinopathy, both eyes Type II or unspecified type diabetes mellitus with ophthalmic manifestations, not stated as uncontrolled Acute angle-closure glaucoma of right eye Acute angle-closure glaucoma documented in this encounter Care Teams Asset Protection Associate Relationship Specialty Start Date End Date Ej Duran MD [address] [place] [address] PCP - General 10/28/11 06/04/18 documented as of this encounter
--- OUTSIDE RECORDS SUMMARY | 2023-12-28 16:41 | XMS_ITS | Encounter Summary ---
Author Organization [facility] [place] [address] Care Team Providers Care Measuring Clerk Name Role Phone Ej Duran MD Primary Care Provider [phone] Reason for Visit * Reason Comments PDR here for 2 wk kay o n PDR, here for possible PRP Encounter Details Date Type Department Care Team (Late st Contact Info) Description 12/20/2011 3:45 PM EDT Procedure [place] [address] Miriam [place] MD [facility] [place] [address] PDR (proliferative diabetic retinopathy) (Primary Dx) Discharge Disposition: Home Social History Tobacco Use Types Packs/Day Years Used Date Smoking Tobacco: Former Alcohol Use Standard Drinks/Week Comments No 0 (1 standard drink = 0.6 oz pur e alcohol) Sex and Gender Information Value Date Recorded Sex Assigned at Not on file Gender Identity Not on file Sexual Orientation Not on file documented as of this encounter Nursing Notes * 12/20/2011 3:45 PM EDT >> MICK Medrano TueDec 20, 2011 4:01 PM Pt states some flashes with OS, vision not any better than before. Some irritation with OU. BS was 124 yesterday AM. Pt states he ran out of Lantus last night Drops None documented in this encounter Plan of Treatment Not on file documented as of this encounter Procedures Procedure Name Priority Date/Time Associated Diagnosis Comments DESTRUCTION PROG RETINOPATHY PHOTOCOAG:SUB SESSION - OS - LEFT EYE Routine 12/20/2011 5:22 PM EDT PDR (proliferative diabetic retinopathy) documented in this encounter Results * Panretinal Photocoagulation Subsqu. Session - OS - Left Eye (12/20/2011 5:22 PM EDT) Laser Applications 600 Laser Total Energy Anatomical Region Laterality Modality Other Miriam [place] MD OPHTHALMOLOGY SERV ICES ORDERABLES documented in this encounter Visit Diagnoses Diagnosis PDR (proliferative diabetic retinopathy)- Primary Type II or unspecified type diabetes mellitus with ophthalmic manifestations, not stated as uncontrolled documented in this encounter Care Teams Measuring Clerk Relationship Specialty Start Date End Date Ej Duran MD [address] [place] [address] PCP - General 10/28/11 06/04/18 documented as of this encounter
--- OUTSIDE RECORDS SUMMARY | 2023-12-28 16:41 | XMS_ITS | Encounter Summary ---
Author Organization [facility] [place] [address] Care Team Providers Care Car Retarder Operator Name Role Phone Ej Duran MD Primary Care Provider [phone] Reason for Visit * Reason Comments Post Op 1 week s/p LPI OD Encounter Details Date Type Department Care Team (Late st Contact Info) Description 04/14/2012 11:15 AM EST Office [place] [address] Phillip Schwartz MD [facility] DR [place] [address] Acute angle-closure glaucoma of right eye (Primary [...] Progress Notes * Phillip Schwartz MD - 04/14/2012 11:42 AM EST 04/06/12 Assess POD #3 retinal repair w gas Noted to have hi IOP yesterday > gas tapped off Using Pred 4x, Vig 4x, Ethan 4x, Alph 3x ?, Cosopt 3x ? Spouse helping w drops (not able to travel) Plan Sec Ph ACG OD w some component of bombe May still have gas effect pushing everything forward Hyperope (+) 4 range > predisposed Urgent YAG LPI OD today (done) Procedure explained in detail Risks & benefits reviewed Consent signed Cont Pred 4x, Cosopt 2x, Brim 2x - instructions written Stop Ethan and Vig RV 2 days Sat 04/09 Hck 04/08/12 POD2 LPI OD Doing well, IOP down to 21 today PI open Plan CPM Rv on 04/14 for IOP ck ? See CBC as well 04/14/12 POD8 LPI OD, POD11 Retina repair Assess AC depth stable, IOP 21 > 26 today Compliant w meds, spouse helping IOP mid 20's acceptable, covered well on (3) meds Plan Revise LPI today to enlarge (done) Cont (3) meds Pred Rx called in See CBC this afternoon * Phillip Schwartz MD - 04/14/2012 11:39 AM EST Assess POD #3 retinal repair w gas Noted to have hi IOP yesterday > gas tapped off Using Pred 4x, Vig 4x, Ethan 4x, Alph 3x ?, Cosopt 3x ? Spouse helping w drops (not able to travel) Plan Sec Ph ACG OD w some component of bombe May still have gas effect pushing everything forward Hyperope (+) 4 range > predisposed Urgent YAG LPI OD today (done) Procedure explained in detail Risks & benefits reviewed Consent signed Cont Pred 4x, Cosopt 2x, Brim 2x - instructions written Stop Ethan and Vig RV 2 days Sat 04/09 Hck 04/08/12 POD2 LPI OD Doing well, IOP down to 21 today PI open Plan CPM Rv on 04/14 for IOP ck ? See CBC as well 04/14/12 POD8 LPI OD documented in this encounter Plan of Treatment Not on file documented as of this encounter Visit Diagnoses Diagnosis Acute angle-closure glaucoma of right eye- Primary Acute angle-closure glaucoma documented in this encounter Care Teams Car Retarder Operator Relationship Specialty Start Date End Date Ej Duran MD [address] [place] [address] PCP - General 10/28/11 06/04/18 documented as of this encounter
--- OUTSIDE RECORDS SUMMARY | 2023-12-28 16:41 | XMS_ITS | Encounter Summary ---
Author Organization [facility] [place] [address] Care Team Providers Care Auto Body Builder Apprentice Name Role Phone Ej Duran MD Primary Care Provider [phone] Reason for Visit * Reason Comments Procedure PRP OS Encounter Details Date Type Department Care Team (Late st Contact Info) Description 01/04/2012 3:30 PM EDT Procedure [place] [address] Miriam [place] MD [facility] [place] [place] [address] PDR (proliferative diabetic retinopathy) (Primary Dx) Discharge [...] as of this encounter Nursing Notes * 01/04/2012 3:30 PM EDT >> MICK SRINIVASAN Jan 04, 2012 4:10 PM Not taking most medications. documented in this encounter Plan of Treatment Not on file documented as of this encounter Procedures Procedure Name Priority Date/Time Associated Diagnosis Comments DESTRUCTION PROG RETINOPATHY PHOTOCOAG:SUB SESSION - OS - LEFT EYE Routine 01/04/2012 5:17 PM EDT PDR (proliferative diabetic retinopathy) documented in this encounter Results * Panretinal Photocoagulation Subsqu. Session - OS - Left Eye (01/04/2012 5:17 PM EDT) Laser Applications 257 Laser Total Energy Anatomical Region Laterality Modality Other Miriam [place] MD OPHTHALMOLOGY SERV ICES ORDERABLES documented in this encounter Visit Diagnoses Diagnosis PDR (proliferative diabetic retinopathy)- Primary Type II or unspecified type diabetes mellitus with ophthalmic manifestations, not stated as uncontrolled documented in this encounter Care Teams Auto Body Builder Apprentice Relationship Specialty Start Date End Date Ej Duran MD [address] [place] [address] PCP - General 10/28/11 06/04/18 documented as of this encounter
--- OUTSIDE RECORDS SUMMARY | 2023-12-28 16:41 | XMS_ITS | Encounter Summary ---
Author Organization [facility] [place] [place] [address] Care Team Providers Care Acid Concentrator Name Role Phone Ej Duran MD Primary Care Provider [phone] Reason for Visit * Reason Comments Post Op 1 POD IOL:OD ( 3) Encounter Details Date Type Department Care Team (Late st Contact Info) Description 07/19/2012 10:45 AM EDT Office [place] [address] Phillip Schwartz MD [facility] [place] [address] Cataract. Dense with synechiae. Right eye. (Primary Dx) Discharge Disposition: Home Social History [...] Progress Notes * Phillip Schwartz MD - 07/18/2012 10:05 PM EDT 07/19/12 Maurice Rudolph is (1) day p cataract surgery in his right eye 07/18 Doing well with a normal post operative appearance. Plan: - Prednisolone acetate 1% q 2h WA - Vigamox bid in operative eye - Cosopt 2x - no Alphagan - Eye shield at night Postop instructions reviewed and all questions answered Call for any problems, incr pain or decr vision RV (1) week Hck > Tue 07/25 RPS and CBC documented in this encounter Plan of Treatment Not on file documented as of this encounter Visit Diagnoses Diagnosis Cataract. Dense with synechiae. Right eye.- Primary Unspecified cataract documented in this encounter Care Teams Acid Concentrator Relationship Specialty Start Date End Date Ej Duran MD [address] [place] [address] PCP - General 10/28/11 06/04/18 documented as of this encounter
--- OUTSIDE RECORDS SUMMARY | 2023-12-28 16:41 | XMS_ITS | Encounter Summary ---
Author Organization [facility] [place] [address] Care Team Providers Care Prosthodontist/Educator Name Role Phone Ej Duran MD Primary Care Provider [phone] Reason for Visit * Reason Onset Date Comments Eye Problem 12/03/2011 Few months ago p atient had OS laser treatment. Having dull pain but can't see. Like looking through a thick fog. Can only make out shapes. Encounter Details Date Type Department Care Team ([facility] Contact Info) Description 12/03/2011 Telephone [place] [address] [facility] DR OPHTHALMOLOGY DEPT. [address] Eye Problem (Few months ago patient had OS laser treatment. Having dull pain but can't see. Like looking through a thick fog. Can only make out shapes.) Social History Tobacco Use Types Packs/Day Years Used Date Smoking Tobacco: Former Alcohol Use Standard Drinks/Week Comments No 0 (1 standard drink = 0.6 oz pur e alcohol) Sex and Gender Information Value Date Recorded Sex Assigned at Not on file Gender Identity Not on file Sexual Orientation Not on file documented as of this encounter Miscellaneous Notes * Telephone Encounter - Irving Farias COMT - 12/03/2011 8:43 AM EDT Essentially monocular patient with decrease in OS VA. Cancelled appointment with Dr Diane due to new job, now losing VA in OS (better seeing eye). To come in this AM. documented in this encounter Plan of Treatment Not on file documented as of this encounter Visit Diagnoses Not on filedocumented in this encounter Care Teams Prosthodontist/Educator Relationship Specialty Start Date End Date Ej Duran MD [address] [place] [address] PCP - General 10/28/11 06/04/18 documented as of this encounter
--- OUTSIDE RECORDS SUMMARY | 2023-12-28 16:41 | XMS_ITS | Encounter Summary ---
Author Organization [facility] [place] [address] Care Team Providers Care Software Maintenance Engineer Name Role Phone Petros Daley DO Primary Care Provider [phone] Reason for Visit * Reason Comments Procedure PRP OS for Diabetic retinopathy Encounter Details Date Type Department Care Team (Late st Contact Info) Description 09/21/2011 12:45 PM EDT Procedure [place] [address] Matteo Diane MD [facility] [address] [place] [address] Diabetic retinopathy (Primary Dx); Vitreous hemorrhage, right eye; Proliferative diabetic retinopathy, both eyes; Diabetes mellitus Discharge Disposition: Home Social History Tobacco Use [...] Progress Notes * Matteo Diane MD - 09/21/2011 2:14 PM EDT Patient return in 4-5 weeks or sooner if you secure clearance for anesthesia to perform a vitrectomy in his right eye. Patient has severe hypertension. In the left eye we were able to completely minimal clock hours using scatter treatment for his proliferative diabetic retinopathy Safety issues including driving and other activities of daily living were reviewed. Importance of blood sugar control and followup were also reviewed documented in this encounter Nursing Notes * 09/21/2011 12:45 PM EDT >> MICK Stallings September 21, 2011 1:05 PM Pt notes VA OU is the same as last visit 07/2011. Pt denies eye pain. Pt c/o OD throbbing sometimes toward latter part of day and back portion of eye is painful (only lasts short time) x 2 mos. documented in this encounter Plan of Treatment Not on file documented as of this encounter Procedures Procedure Name Priority Date/Time Associated Diagnosis Comments DESTRUCTION PROG RETINOPATHY PHOTOCOAG - OS - LEFT EYE Routine 09/21/2011 2:12 PM EDT Diabetic retinopathy documented in this encounter Results * Laser Panretinal Photocoagulation - OS - Left Eye (09/21/2011 2:12 PM EDT) Laser Applications 550 Laser Total Energy Anatomical Region Laterality Modality Other Matteo Diane MD OPHTHALMOLOGY S ERVICES ORDERABLES documented in this encounter Visit Diagnoses Diagnosis Diabetic retinopathy- Primary Type II or unspecified type diabetes mellitus with ophthalmic manifestations, not stated as uncontrolled Vitreous hemorrhage, right eye Vitreous hemorrhage Proliferative diabetic retinopathy, both eyes Type II or unspecified type diabetes mellitus with ophthalmic manifestations, not stated as uncontrolled Diabetes mellitus Type II or unspecified type diabetes mellitus without mention of complication, not stated as uncontrolled documented in this encounter Care Teams Software Maintenance Engineer Relationship Specialty Start Date End Date Petros Daley DO [address] [place] [address] [address] [place] [address] PCP - General 06/15/11 10/27/11 documented as of this encounter
--- OUTSIDE RECORDS SUMMARY | 2023-12-28 16:41 | XMS_ITS | Clinical Summary ---
Author Organization [facility] Address [address] [place] [address] Care Team Providers Care Millwright Helper Name Role Phone Sanjay AriannaJarad barrientos Maeve DNP Primary Care Provider [phone] Allergies No known active allergies Medications Medication Sig Dispensed Refills Start Date End Date Status aspirin 325 mg tablet Take 325 mg by mouth daily. Active pravastatin (PRAVACHOL) 40 mg tablet Take 40 mg by mouth daily. Active gabapentin (NEURONTIN) 300 mg capsule Take 300 mg by mouth 3 times daily. Active losartan (COZAAR) 50 mg tablet Take 50 mg by mouth daily. Active bumetanide (BUMEX) 2 mg tablet Take 2 mg by mouth 2 times daily. Active tamsulosin (FLOMAX) 0.4 mg capsule Take 0.4 mg by mouth daily. Active INSULIN ASPART U-100 SUBQ Inject 76 Units into the skin daily. Patient self-administers via V-Go pump. Active calcitRIOL (ROCALTROL) 0.25 mcg capsule Take 0.75 mcg by mouth every , , Sat (Dialysis). Active mv,Cp-UH-G2-OM-3-dha- epa-fish (PRORENAL QD) 400-500 mcg-unit capsule Take 1 Capsule by mouth daily. Prorenal QD multivitamin. Active epoetin beta, methoxy peg (MIRCERA) 50 mcg/0.3 mL syringe Inject 50 mcg into the vein every Tuesday (Dialysis). Active iron sucrose (VENOFER) 100 mg iron/5 mL injection Inject 50 mg into the vein every Tuesday (Dialysis). Active lidocaine-prilocaine (EMLA) cream Apply topically every , , Sat (Dialysis). Apply to fistula site. Active sertraline (ZOLOFT) 25 mg tabletIndications:david or depressive disorder Take 2 Tabs by mouth daily. 10/14/2018 Active multivitamin (NEPHROVITE) 0.8 mg tablet Take 1 Tab by mouth at bedtime. 10/14/2018 Active Active Problems Problem Noted Date Diagnosed Date Cellulitis 10/12/2018 ESRD (end stage renal disease) ([facility]) 019 Surgical History Surgery Date Site/Laterality Comments CORONARY ARTERY BYPASS GRAFT 05/02/2014 - 05/01/2015 Medical History Medical History Date Comments End stage renal disease on dialysis ([facility]) Diabetes mellitus ([facility]) Coronary artery disease Neuropathy GERD (gastroesophageal reflux disease) Hyperlipidemia Hypertension Social History Tobacco Use Types Packs/Day Years Used Date Smoking Tobacco: Former Cigarettes Smokeless Tobacco: Never Alcohol Use Standard Drinks/Week Comments No 0 (1 standard drink = 0.6 oz pur e alcohol) AUDIT-C Answer Date Recorded Frequency of Alcohol Consumption Never 10/12/2018 Average Number of Drinks Not on file 019 Frequency of Binge Drinking Not on file 09/30 Interpersonal Safety Answer Date Record ed Physically Hurt Never 12/03/2019 Verbally Threaten Not on file 12/03/2019 Sex and Gender Information Value Date Recorded Sex Assigned at Not on file Gender Identity Not on file Sexual Orientation Not on file Obstetrics History Last Filed Vital Signs Vital Sign Reading Time Taken Comments Blood Pressure 112/56 10/14/2018 1334 EDT Pulse 89 10/14/2018 1334 EDT Temperature 36.7 ??C (98.1 ??F) 10/14/2018 1334 EDT Respiratory Rate 16 10/14/2018 1334 EDT Oxygen Saturation 94% 10/14/2018 1334 EDT Inhaled Oxygen Concentration - - Weight 101.8 kg (224 lb 6.9 oz) 10/14/2018 1154 EDT Height 162.6 cm (5' 4) 10/12/2018 1301 EDT Body Mass Index 38.52 10/12/2018 1301 EDT Plan of Treatment Health Maintenance Due Date Last Done Comments RSV Immunization ( o r 60+ Years) (1 - 1-dose 60+ series) 2019 COVID-19 Vaccine ( - 2022-24 season) 2022 Hepatitis C Screen Completed 07/31/2021 Procedures Procedure Name Priority Date/Time Associated Diagnosis Comments HEPATITIS C AB W REFLEX TO HCV RNA BY PCR Routine 07/31/2021 10:10 EDT from Last 3 Months or Most Recently Relevant to Health Maintenance Results * HEPATITIS C AB W REFLEX TO HCV RNA BY PCR (07/31/2021 10:10 EDT) Hep C Antibody Negative Negative 08/03/2021 9:53 EDT [facility] Blood VENOUS BLOOD / Unknown 07/31/2021 10:10 EDT 07/31/2021 21:21 EDT Provider Outr Resulting Lab CHEMISTRY & BLOOD GAS ORDERABLES [facility] [address] [place] [address] from Last 3 Months or Most Recently Relevant to Health Maintenance Advance Directives For more information, please contact: [phone] * Full Code (Latest Code Status on File) Date Activated Date Inactivated Comments 10/12/2018 13:48 10/14/2018 16:39 Question Answer Comments Reason for decision includes: Full code consistent with overall plan of care Who participated in the discussion? Patient Care Teams Millwright Helper Relationship Specialty Start Date End Date Jarad Iglesias, DNP [facility] [place] [address] PCP - General 10/12/18
--- OUTSIDE RECORDS SUMMARY | 2023-12-28 16:41 | XMS_ITS | Encounter Summary ---
Author Organization [facility] [address] [place] [address] Care Team Providers Care Construction Administrator Name Role Phone Ej Duran MD Primary Care Provider [phone] Reason for Visit * Reason Comments Glaucoma 2 wk ck Encounter Details Date Type Department Care Team (Late st Contact Info) Description 06/26/2012 3:45 PM EST Office [place] [address] [facility] [place] [address] Cataract. Dense with synechiae. Right eye. (Primary Dx); Acute angle-closure glaucoma of right eye Discharge [...] as of this encounter Progress Notes * Lisette Schwartz MD - 06/25/2012 12:16 PM EST 04/06/12 Assess POD #3 retinal repair [...] Rx called in See CBC this afternoon 06/06/12 CBC Today Peripheral iridotomy is closed. Referral to glaucoma service. Return here one week for dilated examination of both eyes LPI revision (done) 06/21/12 I would like to request followup consultation for Mr. Maurice Rudolph whom I saw for postoperative evaluation on 06/21/2012. As you know, he is a very pleasant gentleman who developed angle closure glaucoma after vitrectomy and gas exchange in his right eye. His history is significant for early cataract formation and hyperopia. Recently, peripheral iridotomy was performed. The patient presented today with no improvement in visual acuity. He denies any pain, brow ache, or other related symptoms. Maurice presented today measuring hand motion in the right eye and 20/80 in the left. Intraocular pressures were found to be 24 mm right eye and 20 left eye. Slit-lamp examination revealed grade 2 open angle with synechiae. I was not able to verify the patency of the iridotomy. Posterior segment examination revealed a minimal light reflex. Ultrasonography of the right eye revealed significant choroidal thickening. Diffuse vitreous echos were consistent with the mild vitreous hemorrhage was seen. One of the sections on ultrasound was suggestive for either disengagement of attached hyaloid or even possibly recurrent detachment. 1. Severe proliferative diabetic retinopathy with delay in presentation owing to multiple medical issues. 2. Angle closure glaucoma status post vitrectomy, right eye. 3. History of peripheral iridotomy. 4. Dense cataract with posterior synechiae. Discussion: From a retina vantage point, I am relatively pleased with his progress. One of the sections on the ultrasound revealed changes consistent with a possible early redetachment or disengagement of peripheral hyaloid. In any case, I am not able to see the posterior pole and he has dense synechiae. Also, the peripheral iridotomy does not appear patent. I am requesting followup consultation to see if surgery could be considered including cataract surgery and a peripheral iridotomy. This would facilitate diagnostic examination and may afford some measures of visual improvement. All was understood the extremely guarded prognosis by virtue of the severe ischemia which was evident during his operation, but also given the complex tractional changes from his inability to secure safe preoperative clearance. 06/26/12 Hx as above per CBC Assess Sec Ph ACG w LPI x 3 (12/6, 14, 2/) Using Alph (3,0), Pred (3,0) and Cosopt (2,0) IOP holding low 20's Sec PSC cat - significant, limited view of PP now Plan Rec KPE OD w SPI Will need pupilloplasty / Malyugin / hooks Procedure explained in detail Risks & benefits reviewed Consent signed POM today, schedule surgery documented in this encounter Miscellaneous Notes * Addendum Note - Lisette Schwartz MD - 06/26/2012 4:53 PM ESTAddended by: LISETTE SCHWARTZ on: 06/26/2012 04:53 PM Modules accepted: Orders documented in this encounter Plan of Treatment Not on file documented as of this encounter Procedures Procedure Name Priority Date/Time Associated Diagnosis Comments CATARACT EXTRACTION, EXTRACAPSULAR, W/ LENS INSERTION, COMPLEX Routine 06/26/2012 4:53 PM EST documented in this encounter Visit Diagnoses Diagnosis Cataract. Dense with synechiae. Right eye.- Primary Unspecified cataract Acute angle-closure glaucoma of right eye Acute angle-closure glaucoma documented in this encounter Care Teams Construction Administrator Relationship Specialty Start Date End Date Ej Duran MD [address] [place] [address] PCP - General 10/28/11 06/04/18 documented as of this encounter
--- OUTSIDE RECORDS SUMMARY | 2023-12-28 16:41 | XMS_ITS | Encounter Summary ---
Author Organization [facility] [place] [address] Care Team Providers Care Mathematics Department Chair Name Role Phone Petros Daley DO Primary Care Provider [phone] Reason for Visit * Reason Comments Diabetes Pt sent by Optical E xpressions for proliferative diabetic retinopathy and vitreous hemorrhage OD Encounter Details Date Type Department Care Team (Late st Contact Info) Description 06/15/2011 10:00 AM EST Office [place] [address] Matteo Diane MD [facility] [place] [address] Diabetes mellitus (Primary Dx); Proliferative diabetic retinopathy, both eyes; Blurred vision; Vitreous hemorrhage, right eye Discharge Disposition: Home Social History [...] Progress Notes * Matteo Diane MD - 06/15/2011 9:05 PM EST PDR OU VH OD Elevate HOP 2-3 weeks PRP OD,If unable laser OS AAO brochures Patient education and counseling documented in this encounter Nursing Notes * 06/15/2011 10:00 AM EST >> MICK Stallings Jun 15, 2011 10:24 AM Pt notes VA OD is all blurry x 1 mo. Pt notes it started with a lot of black floaters. Pt denies flashes. Pt has constant RAMIREZ's; pain level is 5/10. Pt's BSL yesterday was 350. Last A1C was 17.0 taken last year sometime. Pt has been w/o ins. documented in this encounter Plan of Treatment Not on file documented as of this encounter Procedures Procedure Name Priority Date/Time Associated Diagnosis Comments US B-SCAN - OS - LEFT EYE Routine 06/15/2011 9:04 PM EST Diabetes mellitus FUNDUS PHOTOS - OS - LEFT EYE Routine 06/15/2011 9:02 PM EST Diabetes mellitus documented in this encounter Results * US B-SCAN - OS - LEFT EYE (06/15/2011 9:04 PM EST) Anatomical Region Laterality Modality Other Narrative 06/15/2011 9:04 PM EST VH Mild-moderate OD ? Organization or early trection Procedure Note Matteo Diane MD - 06/15/2011 VH Mild-moderate OD ? Organization or early trection Matteo Diane MD OPHTHALMOLOGY S ERVICES ORDERABLES * FUNDUS PHOTOS - OS - LEFT EYE (06/15/2011 9:02 PM EST) Anatomical Region Laterality Modality Other Narrative 06/15/2011 9:02 PM EST VH OD Diabetic retinopathy ( early NV) Procedure Note Matteo Diane MD - 06/15/2011 VH OD Diabetic retinopathy ( early NV) Matteo Diane MD OPHTHALMOLOGY S ERVIC ORDERABLES documented in this encounter Visit Diagnoses Diagnosis Diabetes mellitus- Primary Type II or unspecified type diabetes mellitus without mention of complication, not stated as uncontrolled Proliferative diabetic retinopathy, both eyes Type II or unspecified type diabetes mellitus with ophthalmic manifestations, not stated as uncontrolled Blurred vision Other specified visual disturbances Vitreous hemorrhage, right eye Vitreous hemorrhage documented in this encounter Care Teams Mathematics Department Chair Relationship Specialty Start Date End Date Petros Daley DO [address] [facility] [address] [place] [address] PCP - General 06/15/11 10/27/11 documented as of this encounter
--- OUTSIDE RECORDS SUMMARY | 2023-12-28 16:41 | XMS_ITS | Encounter Summary ---
Author Organization [facility] [place] [address] Care Team Providers Care Deportation Examiner Name Role Phone Ej Duran MD Primary Care Provider [phone] Reason for Visit * Reason Comments Eye Problem 5 wk ck, s/p PRP OS for Diabetic retinopathy. As reduced vision right eye and plans for vitrectomy right eye. Encounter Details Date Type Department Care Team (Late st Contact Info) Description 10/28/2011 12:45 PM EDT [place] [address] Matteo Beckett MD [facility] [place] [address] Blurred vision; Diabetes mellitus; Proliferative diabetic retinopathy, both eyes; Vitreous hemorrhage, right eye Discharge Disposition: Home [...] of this encounter Progress Notes * Matteo Beckett MD - 10/28/2011 1:[address] Duran; This gentleman is stable with respect to his right eye but he does require vitrectomy to improve his vision and to prevent further vision loss. At this point, we are waiting your directive about the safety for him to undergo general anesthesiaand surgery for approximately 2 hours. I understand he is having considerable challenges with his blood pressure ut it is under control. I will schedule him to see me in 4 weeks in any case. Please contact us as soon as possible when heis cleared for anesthesia and surgery Thank you kindly in advance for helping us. B-scan next visit right eye Respectfully Matteo Beckett M.D. documented in this encounter Nursing Notes * 10/28/2011 12:45 PM EDT >> MATTEO BECKETT MD TueOct 28, 2011 1:41 PM The patient presents for followup for his diabetic retinopathy. He denies pain or other symptoms. >> MICK Stallings TueOct 28, 2011 1:05 PM Pt c/o sensitivity/more sore since laser tx in August; pt notes that it is different now, not a gooddifferent. He c/o of seeing stars now, flashes, especially when he goes into a dark room. Pt denies eye pain. BSL this morning was 250. GTTS: None documented in this encounter Plan of Treatment Not on file documented as of this encounter Visit Diagnoses Diagnosis Blurred vision Other specified visual disturbances Diabetes mellitus Type II or unspecified type diabetes mellitus without mention of complication, not stated as uncontrolled Proliferative diabetic retinopathy, both eyes Type II or unspecified type diabetes mellitus with ophthalmic manifestations, not stated as uncontrolled Vitreous hemorrhage, right eye Vitreous hemorrhage documented in this encounter Care Teams Deportation Examiner Relationship Specialty Start Date End Date Ej Duran MD [address] [place] [address] PCP - General 10/28/11 06/04/18 documented as of this encounter
--- OUTSIDE RECORDS SUMMARY | 2023-12-28 16:41 | XMS_ITS | Encounter Summary ---
Author Organization [facility] [place] [address] Care Team Providers Care Section Supervisor Name Role Phone Ej Duran MD Primary Care Provider Reason for Visit * Reason Comments PDR 4 wk ck, PRP 8/20 & 9/4 OS. Vision better OD. OD still poor. ESTRELLA FERRO Encounter Details Date Type Department Care Team (Late st Contact Info) Description 02/01/2012 1:30 PM EDT [place] [address] Matteo Beckett MD [facility] [place] [address] Diabetes mellitus; Blurred vision; Diabetic retinopathy; Proliferative diabetic retinopathy, both eyes; Vitreous hemorrhage, [...] Progress Notes * Matteo Beckett MD - 02/01/2012 5:33 PM EDT February 01, 2012 Ej Duran M.D. [facility] [address] [place] [address] RE: Maurice Gurrola#: [id number] Duran: I had the pleasure of seeing Maurice Rudolph for followup evaluation on 02/01/2012. As you know, he is a pleasant gentleman with advanced diabetic retinopathy and has undergone extensive laser treatment in the left eye. Fortunately, his vision improves and there were no complications, but he will need further laser treatment down the road. In the right eye, complex features of proliferative disease and hemorrhages are noted. Please let us know as soon as possible if he can withstand surgery under general anesthesia or local anesthesia with sedation for a period of about two hours. Over some unspecified period of time, he will have a lessened potential for improved vision after surgery. I am also concerned that he may develop neovascular glaucoma as a result of persistent ischemia, which can be very problematic to treat. I look forward to working with you in the care of this nice gentleman. Please do not hesitate to let me know once as soon as possible when he is cleared for surgery. The best way to contact us is [phone]. He may speak to Joselin Montemayor, our doctor of nursing practice or to Simeon, our plastic surgery technician to keep us updated regarding his progress. Respectfully, Matteo Beckett M.D. documented in this encounter Nursing Notes * 02/01/2012 1:30 PM EDT >> MATTEO BECKETT MD josé Feb 01, 2012 9:51 PM The patient has had some discomfort after laser treatment in the left eye but this is improving. >> MICK Stallings Feb 01, 2012 2:02 PM Pt notes VA OS is better since PRP. Pt c/o dull aching pain OS since doing treatments. Pt denies eye pain today. documented in this encounter Plan of Treatment Not on file documented as of this encounter Visit Diagnoses Diagnosis Diabetes mellitus Type II or unspecified type diabetes mellitus without mention of complication, not stated as uncontrolled Blurred vision Other specified visual disturbances Diabetic retinopathy Type II or unspecified type diabetes mellitus with ophthalmic manifestations, not stated as uncontrolled Proliferative diabetic retinopathy, both eyes Type II or unspecified type diabetes mellitus with ophthalmic manifestations, not stated as uncontrolled Vitreous hemorrhage, right eye Vitreous hemorrhage documented in this encounter Care Teams Section Supervisor Relationship Specialty Start Date End Date Ej Duran MD [address] [place] [address] PCP - General 10/28/11 06/04/18 documented as of this encounter
--- OUTSIDE RECORDS SUMMARY | 2023-12-28 16:41 | XMS_ITS | Encounter Summary ---
Author Organization [facility] [place] [address] Care Team Providers Care Nurse Receptionist Name Role Phone Ej Duran MD Primary Care Provider [phone] Encounter Details Date Type Department Care Team (Late st Contact Info) Description 04/03/2012 7:54 AM EST - 04/03/2012 3:13 PM [facility] Hospital Encounter [place] [address] Ruthann Augustin MD [facility] [place]PHTHALMOLOGY [place] [address] Discharge Disposition: Home Social History Tobacco Use [...] Sign Reading Time Taken Comments Blood Pressure 147/80 04/03/2012 2:24 PM EST Pulse 86 04/03/2012 2:10 PM EST Temperature 36.6 ??C (97.9 ??F) 04/03/2012 12:[address] Respiratory Rate 18 04/03/2012 2:24 PM EST Oxygen Saturation 93% 04/03/2012 2:24 PM EST Inhaled Oxygen Concentration - - [...] have additional concerns or questions please call. [phone] 7. If after hours please call [phone] for the ophthalogy doctor personal fitness manager. [facility] [address] ??? [place] [address] ??? [phone] ??? [email or web address] ??? [facility] ??? [facility] ??? [facility], [place], [place] * Patient Instructions* Gloria Vo PA - 04/03/2012 12:24 PM EST Please keep patch and shield on operated eye until follow up appointment tomorrow. Ice packs over patch and shield as needed for pain. Tylenol 500 mg every four hours as needed for pain. Please bring eye kit and all eye drops to tomorrow's appointment. Call [phone] for all questions concerns. Have patient remain [...] 9:25 PM EST * Op Note - uRthann Augustin MD - 04/03/2012 12:[address] [facility] [place] Note Patient Name: Maurice Rudolph : [id number] MR#: [id number] Case Date: 04/03/2012 Surgeon: Surgeon(s) and Role: * Ruthann Augustin MD - Primary * HERVE Edwards - Resident-Fire Sprinkler Inspector Preoperative diagnosis: PDR & VIT HEM Postoperative [...] equator to the anterior periphery to ora sanjuanita. The complete pattern of the laser photocoagulation [...] Operative Note Patient Name: Maurice Rudolph : [id number] MR#: [id number] Case Date: 04/03/2012 Surgeon: Surgeon(s) and Role: * Ruthann Augustin MD - Primary * HERVE Edwards - Resident-Fire Sprinkler Inspector Preoperative diagnosis: PDV & VIT HEM Postoperative [...] Glucose, POC 178 60 - 199 mg/dL [facility] Comment: Supplemental ranges: <110 mg/dL before meals <200 mg/dL all other times of the day Blood specimen (specimen) 04/03/2012 1:04 PM EST 04/03/2012 1:04 PM EST Ruthann Augustin MD POINT OF CARE T EST ORDERABLES Performing Organization Address [facility] Co de Phone Number [facility] * POCT Glucose (04/03/2012 8:22 AM EST) Glucose, POC 152 60 - 199 mg/dL [facility] Comment: Supplemental ranges: <110 mg/dL before meals <200 mg/dL all other times of the day Blood specimen (specimen) 04/03/2012 8:22 AM EST 04/03/2012 8:22 AM EST Ruthann Augustin MD POINT OF CARE T EST ORDERABLES Performing Organization Address [facility] Co de Phone Number [facility] documented in this encounter Visit [...] Given 04/03/2012 8:25 AM EST 1 drop lactated ringers infusion [...] Given 04/03/2012 8:26 AM EST 1 drop PHENYLephrine (MYDFRIN) 2.5 % ophthalmic solution 1 drop 1 drop, Right Eye, EVERY 5 MIN, 3 doses, First dose on 04/03/12 at 0845, Last dose on Tue04/03/12 at 0855, Day of Surgery (Day of Procedure), Routine Given 04/03/2012 8:36 AM EST 1 drop Given 04/03/2012 8:31 AM EST 1 drop Given 04/03/2012 8:26 AM EST 1 drop prednisoLONE acetate (PRED FORTE) 1 % ophthalmic suspension 1 drop 1 drop, Right Eye, ONCE, 1 dose, On Tue04/03/12 at 0845, Day of Surgery (Day of Procedure), Routine Given 04/03/2012 8:36 AM EST 1 drop documented in this encounter Active and Recently Administered Medications Times are shown in EST. Scheduled Medication Order 2012 04/02/2012 04/03/2012 atropine 1 % ophthalmic solution 1 drop (COMPLETED) 1 drop, Right Eye, EVERY 5 MIN, 3 doses, First dose on Tue04/03/12 at 0845, Last dose on Tue04/03/12 at 0855, Day of Surgery (Day of Procedure), Routine 0825 (Given - Provid er: Nettie Bailey RN)08 (Given - Provider: Nettie Bailey RN)0835 (Given - Provider: Nettie Bailey RN) moxifloxacin (VIGAMOX) 0.5 % ophthalmic solution 1 drop (COMPLETED) 1 drop, Right Eye, EVERY 5 MIN, 3 doses, First dose on Tue04/03/12 at 0845, Last dose on Tue04/03/12 at 0855, Day of Surgery (Day of Procedure), Routine 08 (Given - Provid er: Nettie Bailey RN)08 (Given - Provider: Nettie Bailey RN)0836 (Given - Provider: Nettie Bailey RN) PHENYLephrine (MYDFRIN) 2.5 % ophthalmic solution 1 drop (COMPLETED) 1 drop, Right Eye, EVERY 5 MIN, 3 doses, First dose on Tue04/03/12 at 0845, Last dose on Tue04/03/12 at 0855, Day of Surgery (Day of Procedure), Routine 08 (Given - Provid er: Nettie Bailey RN)08 (Given - Provider: Nettie Bailey RN)0836 (Given [...] irrigation solution (CANCELED) ONCE PRN, Starting on 04/03/12 at 1017, Until 04/03/12 at 1724, Intra-Operative (Intra-Procedure), Routine 1017 (Given - Provid er: Ruthann Augustin MD)1121 (Given - Provider: Ruthann Augustin MD) balanced salt (BSS) irrigation solution (CANCELED) ONCE PRN, Starting on 04/03/12 at 1017, Until Tue04/03/12 at 1724, Intra-Operative (Intra-Procedure), Routine 1017 (Given - Provid er: Ruthann Augustin MD) balanced salt (BSS) irrigation solution (CANCELED) ONCE PRN, Starting on Tue04/03/12 at 1018, Until Tue04/03/12 at 1724, Intra-Operative (Intra-Procedure), Routine 1018 (Given - Provid er: Ruthann Augustin MD) BUpivacaine (PF) (MARCAINE) 0.75 % (7.5 mg/mL) injection (CANCELED) ONCE PRN, Starting on Tue04/03/12 at 1021, Until Tue04/03/12 at 1724, Intra-Operative (Intra-Procedure), Routine 1015 (Given - Provid er: Ruthann Augustin MD - Comment: mixed with 2% lidocaine 1:1) ceFAZolin (ANCEF) injection (CANCELED) ONCE PRN, Starting on 04/03/12 at 1018, Until 04/03/12 at 1724, Intra-Operative (Intra-Procedure), Routine 1018 (Given - Provid er: Ruthann Augustin MD - Comment: dr. augustin aware of allergy to penicillin post op subconjunctival injection) dexamethasone (DECADRON) injection (CANCELED) ONCE PRN, Starting on Tue04/03/12 at 1019, Until Tue04/03/12 at 1724, Intra-Operative (Intra-Procedure), Routine 1019 (Given [...] ophthalmic solution (CANCELED) ONCE PRN, Starting on 04/03/12 at 1020, Until Tue04/03/12 at 1724, Intra-Operative (Intra-Procedure), Routine 1020 (Given - Provid er: Ruthann Augustin MD - Comment: post op) dqbganob-hvpesuxzu-fqtdqehvsx one (DEXACINE) 3.5-10,000-0.1 mg-unit/g-% ophthalmic ointment (CANCELED) ONCE PRN, Starting on 04/03/12 at 1022, Until 04/03/12 at 1724, Intra-Operative (Intra-Procedure), Routine 1022 (Given - Provid er: Ruthann Augustin MD - Comment: post op) povidone-iodine 5 % ophthalmic solution (CANCELED) ONCE PRN, Starting on 04/03/12 at 1004, Until 04/03/12 at 1724, Irritation, Intra-Operative (Intra-Procedure), Routine 1004 (Given - Provid er: Ruthann Augustin MD - Comment: prep) sterile water injection (CANCELED) ONCE PRN, Starting on Tue04/03/12 at 1022, Until Tue04/03/12 at 1724, Intra-Operative (Intra-Procedure), Routine 1022 (Given - Provid er: Ruthann Augustin MD - Comment: mixed with cefazolin) documented in this encounter Care Teams Nurse Receptionist Relationship Specialty Start Date End Date Ej Duran MD [address] [place] [id number] PCP - General 10/28/11 06/04/18 documented as of this encounter
--- OUTSIDE RECORDS SUMMARY | 2023-12-28 16:41 | XMS_ITS | Encounter Summary ---
Author Organization [facility] [place] [address] Care Team Providers Care Noc Technician Name Role Phone Ej Duran MD Primary Care Provider [phone] Reason for Visit * Reason Comments PDR Pt. is here for a re tinal eye evaluation w/ Dr. Diane. Encounter Details Date Type Department Care Team (Late st Contact Info) Description 05/19/2012 2:30 PM EST [place] [address] Matteo Diane MD [facility] [place] [address] Proliferative diabetic retinopathy of both eyes. Status post vitrectomy right eye. 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 Discharge Disposition: Home Social History Tobacco Use [...] Progress Notes * Matteo Diane MD - 05/20/2012 11:14 PM EST The right eye is stable after complex vitrectomy for severe ischemic proliferative diabetic retinopathy. The angle-closure resulting from hyperopia and intraocular gas has resolved. The retina is attached but markedly ischemic. Return 2 weeks In the left eye, retinal thinning is seen with vitreous separation hovering over the central maculabut no edema or traction is ascertained. documented in this encounter Plan of Treatment Not on file documented as of this encounter Visit Diagnoses Diagnosis Proliferative diabetic retinopathy of both eyes. Status post vitrectomy right eye. 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 Acute angle-closure glaucoma documented in this encounter Care Teams Noc Technician Relationship Specialty Start Date End Date Ej Duran MD [address] [place] [address] PCP - General 10/28/11 06/04/18 documented as of this encounter
--- OUTSIDE RECORDS SUMMARY | 2023-12-28 16:41 | XMS_ITS | Encounter Summary ---
Author Organization [facility] [place] [place] [address] Care Team Providers Care Seat Builder Name Role Phone Ej Duran MD Primary Care Provider [phone] Reason for Visit * Reason Comments Procedure vit tap to remove ga s OD Encounter Details Date Type Department Care Team (Late st Contact Info) Description 04/05/2012 12:00 PM EST Procedure visit [place] [address] Matteo Diane MD [facility] [place] [address] Vitreous hemorrhage, right eye; Proliferative diabetic retinopathy, [...] Notes * Matteo Diane MD - 04/09/2012 4:42 PM EST Return one day. Status nausea vomiting. Resume all medications upon return home this afternoon. documented in this encounter Plan of Treatment Not on file documented as of this encounter Procedures Procedure Name Priority Date/Time Associated Diagnosis Comments VITREOUS TAP - OD - RIGHT EYE Routine 04/09/2012 4:42 PM EST Acute angle-closure glaucoma of right eye documented in this encounter Results * Vitreous Tap - OD - Right Eye (04/09/2012 4:42 PM EST) Anatomical Region Laterality Modality Other Narrative 04/09/2012 4:42 PM EST Please note this procedure was performed and resulted on 04/05/12 Preoperative diagnosis: Angle-closure secondary to hyperopia and intravitreal gas. Postoperative diagnosis:. Same right eye. Surgeon: Christopher Diane M.D. Anesthesia: Topical. Operation performed: Aspiration a vitreous gas via pars plana approach. 0.3 cc of gas removed Operative indications: Patient is a gentleman with angle-closure secondary to hyperopia and vitreous gas. After review of the risks and benefits including endophthalmitis poor visual outcome loss of the eye to glaucoma or bleeding or other problems, he is given informed consent to proceed with surgery today in the clinic setting. Operative technique: Topical anesthesia was achieved with topical lidocaine. Patient was prepped and draped in usual sterile manner for, surgery including Betadine solution sterile fill technique. 30-gauge needle was used to carefully withdraw 0.3 cc of vitreous gas via the pars plana with a 30-gauge needle. Final pressure 6 mm Complications: None Patient instructions: Continue topical medications upon return home this afternoon. Return immediately for any pain nausea vomiting or other concerns. Likely peripheral iridectomy/iridotomy tomorrow. Matteo Diane md Procedure Note Matteo Diane MD - 04/09/2012 Please note this procedure was performed and resulted on04/05/12 ===== ===== ===== ========= Preoperative diagnosis: Angle-closure secondary to hyperopia andintravitreal gas. Postoperative diagnosis:. Same right eye. Surgeon: Matteo Diane M.D. Anesthesia: Topical. Operation performed: Aspiration a vitreous gas via pars plana approach.0.3 cc of gas removed Operative indications: Patient is a gentleman with angle-closure secondaryto hyperopia and vitreous gas. After review of the risks and benefitsincluding endophthalmitis poor visual outcome loss of the eye to glaucomaor bleeding or other problems, he is given informed consent to proceedwith surgery today in the clinic setting. Operative technique: Topical anesthesia was achieved with topicallidocaine. Patient was prepped and draped in usual sterile manner for,surgery including Betadine solution sterile fill technique. 30-gaugeneedle was used to carefully withdraw 0.3 cc of vitreous gas via the parsplana with a 30-gauge needle. Final pressure 6 mm Complications: None Patient instructions: Continue topical medications upon return home thisafternoon. Return immediately for any pain nausea vomiting or otherconcerns. Likely peripheral iridectomy/iridotomy tomorrow. Matteo Diane md Matteo Diane MD OPHTHALMOLOGY S [facility] ORDERABLES documented in this encounter Visit Diagnoses Diagnosis Vitreous hemorrhage, right eye Vitreous hemorrhage Proliferative diabetic retinopathy, both eyes Type II or unspecified type diabetes mellitus with ophthalmic manifestations, not stated as uncontrolled Diabetes mellitus Type II or unspecified type diabetes mellitus without mention of complication, not stated as uncontrolled Acute angle-closure glaucoma of right eye Acute angle-closure glaucoma documented in this encounter Care Teams Seat Builder Relationship Specialty Start Date End Date Ej Duran MD [address] [place] [address] PCP - General 10/28/11 06/04/18 documented as of this encounter
--- OUTSIDE RECORDS SUMMARY | 2023-12-28 16:41 | XMS_ITS | Encounter Summary ---
[place] [address] Care Team Providers Care Streetcar Motorman Name Role Phone Ej Duran MD Primary Care Provider [phone] Reason for Visit * Reason Comments Procedure Reopen LPI OD Encounter Details Date Type Department Care Team (Latest Contact Info) Description 06/06/2012 2:15 PM EST Procedure [place] [address] Phillip Schwartz MD [facility] [place] [address] Acute angle-closure glaucoma of right eye (Primary [...] Progress Notes * Phillip Schwartz MD - 06/06/2012 1:30 PM EST Procedure Note: Diagnosis Narrow Angle Glaucoma OD (postoperative, phakic, inflammatory) Procedure Reopen YAG laser peripheral iridotomy OD Complications None Anesthesia Topical EBL None The patient was noted preoperatively to have a closed LPI from 04/12. He is prone to inflammation. The IOP today is ok. After informed consent was given and signed, [...] any vision loss or eye pain. Power 4.0 mJ x 2 pulse # shots 52 Drops postop Cont Pred drops (3,0) RV (1) wk or sooner if any pain or vision loss documented in this encounter Plan of Treatment Not on file documented as of this encounter Procedures Procedure Name Priority Date/Time Associated Diagnosis Comments IRIDOTOMY/IRIDECTOM Y BY LASER - OD - RIGHT EYE Routine 06/06/2012 4:40 PM EST Acute angle-closure glaucoma of right eye documented in this encounter Results * Iridotomy,/Iridectomy by Laser - OD - RIGHT EYE (06/06/2012 4:40 PM EST) Anatomical Region Laterality Modality Other Narrative 06/06/2012 4:40 PM EST Repeat / revision performed See PN for detail Procedure Note Phillip Schwartz MD - 06/06/2012 Repeat / revision performed See PN for detail Phillip Schwartz MD [facility]PHTHALMOLOGY [facility] ORDERABLES documented in this encounter Visit Diagnoses Diagnosis Acute angle-closure glaucoma of right eye- Primary Acute angle-closure glaucoma documented in this encounter Care Teams Streetcar Motorman Relationship Specialty Start Date End Date Ej Duran MD [address] [place] [address] PCP - General 10/28/11 06/04/18 documented as of this encounter
--- OUTSIDE RECORDS SUMMARY | 2023-12-28 16:41 | XMS_ITS | Encounter Summary ---
Author Organization [facility] Address [address] [place] [address] Care Team Providers Care Senior Physician Name Role Phone Sanjay AriannaJarad barrientos Maeve DNP Primary Care Provider [phone] Encounter Details Date Type Department Care Team (Late st Contact Info) Description 07/31/2021 Lab Requisition [facility] Pathology & Laboratory Medicine - [facility] [address] [place] [address] Outr Resulting Lab, Provider Social History Tobacco Use Types Packs/Day Years [...] on file documented as of this encounter Functional Status Functional Status Response Date of Assess ment Are you deaf or do you have serious difficulty h earing? No 10/12/2018 Are you blind or do you have serious difficulty seeing, even when wearing glasses? Yes 10/12/2018 Do you have serious difficul ty walking or climbing stairs? (5 years old or older) Yes 10/12/2018 Do you have difficulty dress ing or bathing? (5 years old or older) Yes 10/12/2018 Because of a physical, menta l, or emotional condition, do you have difficulty doing errands alone such as visiting a doctor's office or shopping? (15 years old or older) Yes 10/12/2018 Cognitive Status Response Date of Assessm ent Because of a physical, menta l, or emotional condition, do you have serious difficulty concentrating, remembering, or making decisions? (5 years old or older) No 10/12/2018 documented as of this encounter Plan of Treatment Not on file documented as of this encounter Procedures Procedure Name Priority Date/Time Associated Diagnosis Comments HEPATITIS C AB W REFLEX TO HCV RNA BY PCR Routine 07/31/2021 10:10 EDT documented in this encounter Results * HEPATITIS C AB W REFLEX TO HCV RNA BY PCR (07/31/2021 10:10 EDT) Hep C Antibody Negative Negative 08/03/2021 9:53 EDT [facility] Blood VENOUS BLOOD / Unknown 07/31/2021 10:10 EDT 07/31/2021 21:21 EDT Provider Outr Resulting Lab CHEMISTRY & BLOOD GAS ORDERABLES [facility] [address] [place] [address] documented in this encounter Visit Diagnoses Not on filedocumented in this encounter Care Teams Senior Physician Relationship Specialty Start Date End Date Jarad Iglesias, [place] [address] PCP - General 10/12/18 documented as of this encounter
--- OUTSIDE RECORDS SUMMARY | 2023-12-28 16:41 | XMS_ITS | Encounter Summary ---
Author Organization [facility] [place] [address] Care Team Providers Care Senior Stack Engineer Name Role Phone Ej Duran MD Primary Care Provider [phone] Encounter Details Date Type Department Care Team (Late st Contact Info) Description 07/31/2012 6:07 AM EDT - 07/31/2012 9:35 AM EDT Hospital Encounter [place] [address] Ruthann Beckett MD [facility] [place]PHTHALMOLOG[place] [address] Discharge Disposition: Home Social History Tobacco Use [...] Sign Reading Time Taken Comments Blood Pressure 130/68 07/31/2012 9:24 AM EDT Pulse 84 07/31/2012 9:24 AM EDT Temperature 37.1 ??C (98.8 ??F) 07/31/2012 9:06 AM ED T Respiratory Rate 16 07/31/2012 9:24 AM EDT Oxygen Saturation 95% 07/31/2012 9:24 AM EDT Inhaled Oxygen Concentration - - [...] all eye drops to tomorrow's appointment. Call [phone] for all questions concerns. Right side down [...] this encounter Nursing Notes * Era Braden, RN - 07/31/2012 8:54 AM EDT Position right [...] Beckett MD - 07/31/2012 9:00 AM EDT [facility] Operative Note Patient Name: Maurice Rudolph : [id number] MR#: [id number] Case Date: 07/31/2012 Surgeon: Surgeon(s) and Role: [...] at this time. Please note also the peuyiben-es-jejapjxt time was from 7:55 a.m. exactly until 8:55 a.m. The patient will return here postoperative day #1. He is to lie on the right side. Airway safety and venous thrombosis prevention measures will be reviewed again in the postoperative setting. He is to call the eye physician economic analyst the overnight period if there are any [...] Operative Note Patient Name: Maurice Rudolph : [id number] MR#: [id number] Case Date: 07/31/2012 Surgeon: Surgeon(s) and Role: [...] * POCT Glucose (07/31/2012 9:09 AM EDT) [facility] Glucose, POC 181 60 - 199 mg/dL [facility] Comment: Supplemental ranges: <110 mg/dL before [...] CARE T EST ORDERABLES Performing Organization Address City[facility] Co de Phone Number BERHANE CASTRO documented [...] Given 07/31/2012 7:10 AM EDT 1 drop moxifloxacin (VIGAMOX) 0.5 % ophthalmic solution 1 drop 1 drop, Right Eye, EVERY 5 MIN, 3 doses, First dose on Tue07/31/12 at 0730, Last dose on Tue07/31/12 at 0740, Day of Surgery (Day of Procedure), Routine Given 07/31/2012 7:40 AM EDT 1 drop Given 07/31/2012 7:15 AM EDT 1 drop Given 07/31/2012 7:10 AM EDT 1 drop PHENYLephrine (MYDFRIN) 2.5 % ophthalmic solution 1 drop 1 drop, Right Eye, EVERY 5 MIN, 3 doses, First dose on Tue07/31/12 at 0730, Last dose on Tue07/31/12 at 0740, Day of Surgery (Day of Procedure), Routine Given 07/31/2012 7:40 AM EDT 1 drop Given 07/31/2012 7:15 AM EDT 1 drop Given 07/31/2012 7:10 AM EDT 1 drop prednisoLONE acetate (PRED FORTE) 1 % ophthalmic suspension 1 drop 1 drop, Right Eye, ONCE, 1 dose, On Tue07/31/12 at 0730, Day of Surgery (Day of Procedure), Routine Given 07/31/2012 7:10 AM EDT 1 drop documented in this [...] RN)0740 (Given - Provider: Kimani Solano, PERNELL) PHENYLephrine (MYDFRIN) 2.5 % ophthalmic solution 1 drop (COMPLETED) 1 drop, Right Eye, EVERY 5 MIN, 3 doses, First dose on Tue07/31/12 at 0730, Last dose on Tue07/31/12 at 0740, Day of Surgery (Day of Procedure), Routine 0710 (Given - Provid er: Cherelle Venegas RN)0715 (Given - Provider: Cherelle Venegas RN)0740 (Given - Provider: Kimani Solano RN) prednisoLONE acetate (PRED FORTE) 1 % [...] Until Tue07/31/12 at 1207, Intra-Operative (Intra-Procedure), Routine 810 (Given - Provid er: Ruthann Beckett MD) balanced salt (BSS) irrigation solution (CANCELED) ONCE PRN, Starting on Tue07/31/12 at 0811, Until Tue07/31/12 at 1207, Intra-Operative (Intra-Procedure), Routine 810 (Given - Provid er: Ruthann Beckett MD) [...] 1207, Low blood sugar, Intra-Operative (Intra-Procedure), Routine 0817 (Given - Provid [...] Beckett MD - Comment: mixed with bupivacaine) gcvjagys-fueyuxugd-zmnnbicymjsd e (DEXACINE) 3.5-10,000-0.1 mg-unit/g-% ophthalmic ointment (CANCELED) [...] cefazolin) documented in this encounter Care Teams Senior Stack Engineer Relationship Specialty Start Date End Date Ej Duran MD [address] [place] [address] PCP - General 10/28/11 06/04/18 documented as of this encounter
--- OUTSIDE RECORDS SUMMARY | 2023-12-28 16:41 | XMS_ITS | Encounter Summary ---
Author Organization [facility] [place] [address] Care Team Providers Care Relationship Assoc Name Role Phone Ej Duran MD Primary Care Provider [phone] Reason for Visit * Reason Comments Post Op The patient percents for followup evaluation after complex vitrectomy and history of angle-closure. ESTRELLA Hardy Post Op shared pt with dr. wil lawson Encounter Details Date Type Department Care Team (Late st Contact Info) Description 06/21/2012 10:15 AM EST [place] [address] Matteo Diane MD [facility] [place] [address] Acute angle-closure glaucoma of right eye. Patency of peripheral iridectomy equivocal. Referred for glaucoma and cataract evaluation. (Primary Dx); Proliferative diabetic retinopathy, both eyes-severe and profound ischemia right eye.. possible early redetachment and choroidal thickening.; Cataract. Dense with synechiae. Right eye. Discharge Disposition: Home Social History Tobacco Use [...] Progress Notes * Matteo Diane MD - 06/21/2012 4:35 PM EST June 21, 2012 RE: Maurice Rudolph A#: [id number] Dear Sergio; I would like to request followup consultation [...] attached hyaloid or even possibly recurrent detachment. Impression: 1. Severe proliferative diabetic retinopathy with delay [...] his inability to secure safe preoperative clearance. I have asked the patient to return to see me in about four to six weeks. At that time, I will request the both eyes to be dilated. I look forward to hearing from you regarding your suggestions for surgery and management. Respectfully, Matteo Diane M.D. documented in this encounter Plan of Treatment Not on file documented as of this encounter Procedures Procedure Name Priority Date/Time Associated Diagnosis Comments US B-SCAN - OD - RIGHT EYE Routine 06/21/2012 4:33 PM EST Acute angle-closure glaucoma of right eye. Patency of peripheral iridectomy equivocal. Referred for glaucoma and cataract evaluation. Proliferative diabetic retinopathy, both eyes-severe and profound ischemia right eye.. possible early redetachment and choroidal thickening. documented in this encounter Results * US B-SCAN - OD - RIGHT EYE (06/21/2012 4:33 PM EST) Anatomical Region Laterality Modality Other Narrative 06/21/2012 4:33 PM EST The ultrasound of the right eye was performed given the presence of a cataract precluding assessment of the retina. This revealed marked choroidal thickening. One section is suggestive for possible retinal detachment. ESTRELLA FERRO Procedure Note Matteo Diane MD - 06/21/2012 The ultrasound of the right eye was performed given the presence of acataract precluding assessment of the retina. This revealed markedchoroidal thickening. One section is suggestive for possible retinaldetachment. ESTRELLA FERRO Matteo Diane MD OPHTHALMOLOGY S [facility] ORDERABLES documented in this encounter Visit Diagnoses Diagnosis Acute angle-closure glaucoma of right eye. Patency of peripheral iridectomy equivocal. Referred for glaucoma and cataract evaluation.- Primary Acute angle-closure glaucoma Proliferative diabetic retinopathy, both eyes-severe and profound ischemia right eye.. possible early redetachment and choroidal thickening. Type II or unspecified type diabetes mellitus with ophthalmic manifestations, not stated as uncontrolled Cataract. Dense with synechiae. Right eye. Unspecified cataract documented in this encounter Care Teams Relationship Assoc Relationship Specialty Start Date End Date Ej Duran MD [address] [place] [address] PCP - General 10/28/11 06/04/18 documented as of this encounter
--- OUTSIDE RECORDS SUMMARY | 2023-12-28 16:41 | XMS_ITS | Encounter Summary ---
[place] [address] Care Team Providers Care Trouble Dispatcher Name Role Phone Ej Duran MD Primary Care Provider [phone] Reason for Visit * Reason Comments Procedure Here for fabienne MEIER CE. Encounter Details Date Type Department Care Team (Latest Contact Info) Description 06/26/2012 3:45 PM EST Clinical Support [place] [address] CLIN[facility], DR MOISE Cataract (Primary Dx) Discharge Disposition: Home Social [...] Procedure Name Priority Date/Time Associated Diagnosis Comments OTDIDIC-OWFOT-CNE CALC BY LASER INTERFEROMETRY - OU - BOTH EYES Routine 06/27/2012 4:31 PM EST Cataract documented in this encounter Results * [id number] CALC BY LASER [id number] EYES (06/27/2012 4:31 PM EST) Anatomical Region Laterality Modality Other Narrative 06/27/2012 4:31 PM EST IOL calculations reviewed and found to be very good IOL picked according to goal postoperative RE See Progress notes for add'l detail Procedure Note Phillip Schwartz MD - 06/27/2012 IOL calculations reviewed and found to be very good IOL picked according to goal postoperative RE See Progress notes for add'l detail Phillip Schwartz MD [facility]ALMOLOGY [facility] ORDERABLES documented in this encounter Visit Diagnoses Diagnosis Cataract- Primary Unspecified cataract documented in this encounter Care Teams Trouble Dispatcher Relationship Specialty Start Date End Date Ej Duran MD [address] [place] [address] PCP - General 10/28/11 06/04/18 documented as of this encounter
--- OUTSIDE RECORDS SUMMARY | 2023-12-28 16:41 | XMS_ITS | Encounter Summary ---
Author Organization [facility] [place] [address] Care Team Providers Care Solid Propellant Processor Name Role Phone Edi Petros SAXENA Primary Care Provider [phone] Encounter Details Date Type Department Care Team (Late st Contact Info) Description 08/05/2011 11:59 PM EDT Anesthesia [place] [address] Kameron Bojorquez MD [facility] [place] [address] Darian Bañuelos MD [facility] [place] [address] Anesthesia Record Procedure Summary Procedure Name Responsible Anesthesiologist Anesthesia Start Time Anesthesia Stop Time VITRECTOMY, PARS PLANA, LASER (WRVU 13.2) (Right: Eye) Events No events on file. Meds * [...] OR Notes * Anesthesia Preprocedure Evaluation - Kameron Bojorquez - 08/05/2011 5:11 AM EDT Anesthesia Evaluation Airway Dental Pulmonary Cardiovascular (+) hypertension, Neuro/Psych (+) psychiatric history (Anxiety) GI/Hepatic/Renal Endo/Other (+) Type II DM using insulin, arthritis, Abdominal Anesthesia Plan documented in this encounter Plan of Treatment Not on file documented as of this encounter Visit Diagnoses Not on filedocumented in this encounter Care Teams Solid Propellant Processor Relationship Specialty Start Date End Date Petros Daley DO [address] [place] [address] PCP - General 06/15/11 10/27/11 documented as of this encounter
--- OUTSIDE RECORDS SUMMARY | 2023-12-28 16:41 | XMS_ITS | Encounter Summary ---
Author Organization [facility] [place] [address] Care Team Providers Care Department Secretary Name Role Phone Ej Duran MD Primary Care Provider Reason for Visit * Reason Comments Post Op 2 POD:LPI:OD for Acu te Angle Closure Encounter Details Date Type Department Care Team (Late st Contact Info) Description 04/08/2012 11:30 AM EST Office [place] [address] Phillip Schwartz MD [facility] [place] [address] Acute angle-closure glaucoma of right eye Discharge [...] Progress Notes * Phillip Schwartz MD - 04/08/2012 12:14 PM EST Assess POD #3 retinal repair w [...] IOP ck ? See CBC as well documented in this encounter Plan of Treatment Not on file documented as of this encounter Visit Diagnoses Diagnosis Acute angle-closure glaucoma of right eye Acute angle-closure glaucoma documented in this encounter Care Teams Department Secretary Relationship Specialty Start Date End Date Ej Duran MD [address] [place] [address] PCP - General 10/28/11 06/04/18 documented as of this encounter
--- OUTSIDE RECORDS SUMMARY | 2023-12-28 16:41 | XMS_ITS | Encounter Summary ---
Author Organization [facility] [place] [address] Care Team Providers Care Casino Cashier Name Role Phone Ej Duran MD Primary Care Provider [phone] Reason for Visit * Reason Comments Eye Pain Pt. is here for an e ye pain check w/ Dr. Hancock. OD was in a lot of pain over the weekend that has regressed to a dull pain now OD. Encounter Details Date Type Department Care Team (Late st Contact Info) Description 05/01/2012 11:15 AM EST [place] [address] Miriam Hancock MD [facility] [place] [address] Post-operative state (Primary Dx) Discharge Disposition: Home Social History [...] as of this encounter Progress Notes * Miriam Hancock MD - 05/01/2012 12:43 PM EST OD: superotemporal sclerotomy looks a bit inflamed around the prolene suture. Imp: Suture inflammation. Plan: Increase PF to 8 times /day. Continue vigamox qid. RTC 1 week for post op check. documented in this encounter Plan of Treatment Not on file documented as of this encounter Visit Diagnoses Diagnosis Post-operative state- Primary Other postprocedural status documented in this encounter Care Teams Casino Cashier Relationship Specialty Start Date End Date Ej Duran MD [address] [place] [address] PCP - General 10/28/11 06/04/18 documented as of this encounter
--- OUTSIDE RECORDS SUMMARY | 2023-12-28 16:41 | XMS_ITS | Encounter Summary ---
Author Organization [facility] [place] [address] Care Team Providers Care Equal Opportunity Assistant Name Role Phone Ej Duran MD Primary Care Provider [phone] Reason for Visit * Reason Comments Eye Problem The patient presents for postoperative evaluation status post complex vitrectomy right eye. ESTRELLA Hardy Eye Problem Encounter Details Date Type Department Care Team (Late st Contact Info) Description 06/06/2012 1:00 PM EST Office [place] [address] Matteo Diane MD [facility] [place] [address] Proliferative diabetic retinopathy of both eyes. Stable status post complex vitrectomy right eye; Acute angle-closure glaucoma of right eye; Diabetes mellitus Discharge Disposition: Home Social History [...] Progress Notes * Matteo Diane MD - 06/06/2012 1:35 PM EST 1. Proliferative diabetic retinopathy of both eyes. Stable status post complex vitrectomy right eye 2. Acute angle-closure glaucoma of right eye 3. Diabetes mellitus Today Peripheral iridotomy is closed. Referral to glaucoma service. Return here one week for dilated examination of both eyes documented in this encounter Plan of Treatment Not on file documented as of this encounter Visit Diagnoses Diagnosis Proliferative diabetic retinopathy of both eyes. Stable status post complex vitrectomy right eye Type II or unspecified type diabetes mellitus with ophthalmic manifestations, not stated as uncontrolled Acute angle-closure glaucoma of right eye Acute angle-closure glaucoma Diabetes mellitus Type II or unspecified type diabetes mellitus without mention of complication, not stated as uncontrolled documented in this encounter Care Teams Equal Opportunity Assistant Relationship Specialty Start Date End Date Ej Duran MD [address] [place] [address] PCP - General 10/28/11 06/04/18 documented as of this encounter
--- OUTSIDE RECORDS SUMMARY | 2023-12-28 16:41 | XMS_ITS | Encounter Summary ---
Author Organization [facility] [place] [address] Care Team Providers Care Neon Electrician Name Role Phone Ej Duran MD Primary Care Provider [phone] Reason for Visit * Reason Comments Eye Problem The patient presents with severe reduction visual acuity right eye. Benedicto Hardy Vitreous Hemorrhage OD; shared pt with maeve duran/ MANN did laser Encounter Details Date Type Department Care Team ([facility] st Contact Info) Description 02/22/2012 12:30 PM EDT [place] [address] Matteo Beckett MD [facility] [place] [address] Vitreous hemorrhage (Primary Dx); Proliferative diabetic retinopathy, both eyes; Vitreous hemorrhage, right eye; Diabetes mellitus Discharge Disposition: Home [...] Progress Notes * Matteo Beckett MD - 02/27/2012 1:15 PM EDT February 27, 2012 Ej Duran M.D. [facility] [address] [place] [address] RE: Maurice Rudolph A#: [id number] Duran: Just a brief note regarding Maurice Rudolph whom I saw on 02/22/2012. As you know, he is a very nice gentleman with a history of diabetic retinopathy and a history of diabetes mellitus and hypertension. Maurice demonstrates no resolution of the hemorrhage in the right eye and therefore, no laser can be performed in the office. Accordingly, I recommended prompt vitrectomy with endolaser photocoagulation as soon as possible. I am concerned about the progression of his retinopathy and the duration of his symptoms. I would anticipate having Maurice undergo surgery under general anesthesia or with local anesthesia and IV sedation. Would you kindly let me know when it would be safe for Maurice to consider such surgery? Please do not hesitate to contact with any questions or concerns that you may have. The best way to reach me is through my physical laboratory assistant Joselin at [phone]. Respectfully, Matteo Beckett M.D. documented in this encounter Nursing Notes * 02/22/2012 12:30 PM EDT >> MATTEO BECKETT MD [place] Feb 27, 2012 1:15 PM Patient continues with advanced hemorrhaging of the right eye owing to proliferative diabetic retinopathy and this appears worse as determined by ultrasonography. The patient denies any pain, photophobia or any new or associated factors. Left eye is doing well after surgery. ESTRELLA Hardy >> MICK Medrano Feb 22, 2012 12:44 PM Pt states the vision is about the same. OD tends to water a lot. Pt denies any discomfort with either eye. Drops None documented in this encounter Plan of Treatment Not on file documented as of this encounter Procedures Procedure Name Priority Date/Time Associated Diagnosis Comments US B-SCAN - OD - RIGHT EYE Routine 02/27/2012 1:15 PM EDT Vitreous hemorrhage documented in this encounter Results * US B-SCAN - OD - RIGHT EYE (02/27/2012 1:15 PM EDT) Anatomical Region Laterality Modality Other Narrative 02/27/2012 1:15 PM EDT Ultrasound shows a nonclearing vitreous hemorrhage in the right eye with what appears to be early traction as well. Given the duration of the hemorrhage and these features, vitrectomy should be considered laser and additional surgery as indicated Procedure Note Matteo Beckett MD - 02/27/2012 Ultrasound shows a nonclearing vitreous hemorrhage in the right eye withwhat appears to be early traction as well. Given the duration of thehemorrhage and these features, vitrectomy should be considered laser andadditional surgery as indicated Matteo Beckett MD OPHTHALMOLOGY S [facility] ORDERABLES documented in this encounter Visit Diagnoses Diagnosis Vitreous hemorrhage- Primary Proliferative diabetic retinopathy, both eyes Type II or unspecified type diabetes mellitus with ophthalmic manifestations, not stated as uncontrolled Vitreous hemorrhage, right eye Vitreous hemorrhage Diabetes mellitus Type II or unspecified type diabetes mellitus without mention of complication, not stated as uncontrolled documented in this encounter Care Teams Neon Electrician Relationship Specialty Start Date End Date Ej Duran MD [address] [place] [address] PCP - General 10/28/11 06/04/18 documented as of this encounter
--- OUTSIDE RECORDS SUMMARY | 2023-12-28 16:41 | XMS_ITS ---
[place] [address] Care Team Providers Care Noodle Catalyst Maker Name Role Phone Kimani Leger MD Primary Care Provider [phone] Transplant Episode Kidney Candidate [facility] ([place], [place]) [facility] Evaluation began on 06/08/2018 Marked as Not a Candidate on 08/09/2018 Reason: Unable to Contact Patient Kidney CoordinatorCherelle Colvin RN Phone: N/A Fax: N/A Email: N/A Scores Score Value Updated Exceptions/Reas ons CPRA Not available EPTS (Calc) 94 12/28/2023 Crow Organ Diagnosis Organ Primary Contributory Kidney Diabetes Mellitus - Type I Care Team Name Role Phone Fax Email Cherelle Colvin RN Kidney Coordinator N/A N/A N/A Too Morgan MD Referring Physician N/A N/A N/A Ana Hernández Print Finishing Worker N/A N/A N/A Merlene Ferro RD Registered Dietitian N/A N/A N/A Ines Nye MSW Med Surg Nurse N/A N/A N/A Young Watts MD Transplant Physician N/A N/A N/A Events Pre-Transplant Referred: 05/09/2018 Evaluation began: 06/08/2018 Committee: 06/14/2018 Dialysis History Dialysis History Start End Type Comments Center 02/15/2017 In-center Hemodialysis Donnie [facility] Information Center Phone Fax Address [facility] [phone] [place] [address]
--- OUTSIDE RECORDS SUMMARY | 2023-12-28 16:41 | XMS_ITS | Encounter Summary ---
Author Organization [facility] [place] [address] Care Team Providers Care Ccu Nurse Name Role Phone Ej Duran MD Primary Care Provider [phone] Reason for Visit * Reason Comments Post Op 1 day chk, s/p Vit/g as OD. No pain now. Level V/X pain overnight. Control. Encounter Details Date Type Department Care Team (Late st Contact Info) Description 04/04/2012 9:15 AM EST Office [place] [address] Matteo Diane MD [facility] [place] [address] Proliferative diabetic retinopathy, both eyes. Postoperative day one. Retina stable.; Acute angle-closure glaucoma of right eye. Treat conservatively overnight with possible gas aspiration within [address] Gasca consulted Discharge Disposition: Home Social History Tobacco Use [...] Progress Notes * Matteo Diane MD - 04/08/2012 11:56 PM EST The retina surgery and control of bleeding has been established and there is a 90% gas fill. However, patient demonstrates grade 1 angles with imminent closure. Glaucoma consultation secured conservative therapy overnight with consideration of Diamox. Consider gas aspiration or peripheral iridotomy tomorrow. Positioning safety reviewed. Return immediately for nausea vomiting or other concerns. documented in this encounter Plan of Treatment Not on file documented as of this encounter Visit Diagnoses Diagnosis Proliferative diabetic retinopathy, both eyes. Postoperative day one. Retina stable. Type II or unspecified type diabetes mellitus with ophthalmic manifestations, not stated as uncontrolled Acute angle-closure glaucoma of right eye. Treat conservatively overnight with possible gas aspiration within [address] Gasca consulted Acute angle-closure glaucoma documented in this encounter Care Teams Ccu Nurse Relationship Specialty Start Date End Date Ej Duran MD [address] [place] [address] PCP - General 10/28/11 06/04/18 documented as of this encounter
--- OUTSIDE RECORDS SUMMARY | 2023-12-28 16:41 | XMS_ITS | Encounter Summary ---
Author Organization [facility] [place] [address] Care Team Providers Care Office Support Name Role Phone Ej Duran MD Primary Care Provider [phone] Reason for Visit * Reason Comments Post Op Pt here for POD #7 I OL:OD (07/18/12) with Dr Schwartz. Encounter Details Date Type Department Care Team (Late st Contact Info) Description 07/25/2012 12:45 PM EDT Office [place] [address] Phillip Schwartz MD [facility] [place] [address] Cataract. Dense with synechiae. Right eye. (Primary [...] Progress Notes * Phillip Schwartz MD - 07/23/2012 12:04 PM EDT 07/19/12 Maurice Rudolph is (1) [...] Hck > Tue 07/25 RPS and CBC 07/25/12 Maurice Rudolph is (1) week p cataract surgery in his right eye 07/18 Doing well with a normal post operative appearance. Plan: - Decr Prednisolone acetate 1% to 4x daily and finish - Stop Vigamox bid in operative eye - Cont Cosopt 2x - Stop eye shield Postop instructions reviewed and all questions answered Call for any problems, incr pain or decr vision RV Hck 08/22 documented in this encounter Plan of Treatment Not on file documented as of this encounter Visit Diagnoses Diagnosis Cataract. Dense with synechiae. Right eye.- Primary Unspecified cataract documented in this encounter Care Teams Office Support Relationship Specialty Start Date End Date Ej Duran MD [address] [place] [address] PCP - General 10/28/11 06/04/18 documented as of this encounter
--- OUTSIDE RECORDS SUMMARY | 2023-12-28 16:41 | XMS_ITS | Encounter Summary ---
Author Organization [facility] [place] [place] [address] Care Team Providers Care Gold Leaf Laborer Name Role Phone Edi Petrso SAXENA Primary Care Provider [phone] Reason for Visit * Reason Comments Procedure PRP OD (possibly OS) // Definitely OS given VH density OD CBC MD Encounter Details Date Type Department Care Team (Late st Contact Info) Description 07/06/2011 7:45 AM EST Procedure visit [place] [address] Ruthann Beckett MD [facility] [place] [address] Diabetes mellitus (Primary Dx); Blurred vision; Vitreous hemorrhage, right eye; Proliferative diabetic retinopathy, both eyes Discharge Disposition: [...] Progress Notes * Ruthann Beckett MD - 07/06/2011 9:37 PM EST 4 weeks PRP OS Dilate OU. Check VH OD documented in this encounter Nursing Notes * 07/06/2011 7:45 AM EST >> RUTHANN BECKETT MD TueJul 06, 2011 2:25 PM No pain. VH OD still interfering with vision CBC MD >> MICK Stallings TueJul 06, 2011 8:10 AM Pt still unable to see out of OD, still a blur, can see shapes. documented in this encounter Plan of Treatment Pending Results Name Type Priority Associated Diagnoses Date/Time Panretinal Photocoagulation Subsqu. Session - OD - Right Eye Ophthalmology Routine Diabetes mellitus 07/06/2011 2:26 PM EST documented as of this encounter Visit Diagnoses Diagnosis Diabetes mellitus- Primary Type II or unspecified type diabetes mellitus without mention of complication, not stated as uncontrolled Blurred vision Other specified visual disturbances Vitreous hemorrhage, right eye Vitreous hemorrhage Proliferative diabetic retinopathy, both eyes Type II or unspecified type diabetes mellitus with ophthalmic manifestations, not stated as uncontrolled documented in this encounter Care Teams Gold Leaf Laborer Relationship Specialty Start Date End Date Petros Daley DO [address] [place] [address] PCP - General 06/15/11 10/27/11 documented as of this encounter
--- OUTSIDE RECORDS SUMMARY | 2023-12-28 16:41 | XMS_ITS | Encounter Summary ---
Author Organization [facility] [place] [address] Care Team Providers Care Chute Greaser Name Role Phone Ej Duran MD Primary Care Provider [phone] Encounter Details Date Type Department Care Team (Late st Contact Info) Description 07/18/2012 7:23 AM EDT Anesthesia Event [place]patient [place] [address] Maria Isabel Benton MD [facility] [place] [address] Sharla Scanlon CRNA [facility] [place] [address] Anesthesia Record Procedure Summary Procedure Name Responsible Anesthesiologist Anesthesia Start Time Anesthesia Stop Time CATARACT EXTRACTION, EXTRACAPSULAR, WITH LENS INSERTION, COMPLEX (WRVU 10.25) (Right: Eye) Maria Isabel Benton MD 07/18/12 0723 07/18/12 0840 Events Date Time Event Comment 07/18/2012 0717 0723 Start 0840 Stop Meds * Agents No agents on [...] [place] 12/28/21 1715 by Morgan Wong (RETIRED) Peripheral IV Line - Single Lumen 07/18/12; 0705; 07/18/12; 0849 07/18/12 0705 by Francoise Ang RN 07/18/12 0849 by Eboni Ledbetter RN documented in this encounter Social History [...] OR Notes * Anesthesia Postprocedure Evaluation - Maria Isabel Benton MD - 07/18/2012 1:35 PM EDT Patient: Maurice Rudolph Procedure(s) Performed: Procedure(s): CATARACT EXTRACTION, EXTRACAPSULAR, WITH LENS INSERTION, COMPLEX Patient location: PACU Post-op pain: Adequate analgesia Post-op nausea: no nausea or vomiting Last Vitals: Filed Vitals: 07/18/12 0853 BP: 156/82 Pulse: 96 Temp: Resp: 18 Post-op cardiovascular and respiratory status: is stable Level of consciousness: awake and alert Complications: no apparent complications and tolerated the procedure well Fluid Status: normal * Anesthesia Preprocedure Evaluation - Maria Isabel Benton MD - 07/18/2012 7:17 AM EDT Today I evaluated Maurice Rudolph a 52 y.o. male. Procedure(s): CATARACT EXTRACTION, EXTRACAPSULAR, WITH LENS INSERTION, COMPLEX Patient Active Problem List Diagnoses ??? Cataract. [...] PEELING performed by Matteo Diane MD at [facility] MAIN OR ??? Peripheral iridotomy 04/06/2012 OD [...] BMI. Airway Assessment: Mallampati: III TM distance: >3 FB Neck ROM: full H/o challenging AW, used glidescope for ETT Cardiovascular Assessment: cardiovascular exam normal Pulmonary Assessment: pulmonary exam normal Dental Assessment: - normal exam Misc Assessment: Anesthesia Plan: ASA 3 general, with a(n) intravenous induction Informed Consent: Anesthetic plan and risks discussed with patient. Use of blood products discussed with whom consented to blood products. Plan discussed with [SOFTWARE DEVELOPER INTERN Misc. Assessment: documented in this encounter Miscellaneous Notes * Addendum Note - Maddy Cortez - 07/19/2012 10:35 AM EDT Addendum created 07/19/12 1035 by Maddy Cortez Modules edited:Anesthesia Events, Anesthesia Responsible Staff, SmartForms SmartFormsVN Section for SmartForms 266 documented in this encounter Plan of Treatment Not on file documented as of this encounter Visit Diagnoses Not on filedocumented in this encounter Care Teams Chute Greaser Relationship Specialty Start Date End Date Ej Duran MD [address] [place] [address] PCP - General 10/28/11 06/04/18 documented as of this encounter
--- OUTSIDE RECORDS SUMMARY | 2023-12-28 16:41 | XMS_ITS | Encounter Summary ---
Author Organization [facility] [address] Care Team Providers Care Goodwill Ambassador Name Role Phone Ej Duran MD Primary Care Provider [phone] Encounter Details Date Type Department Care Team (Late st Contact Info) Description 07/18/2012 7:30 AM EDT - 07/18/2012 8:30 AM EDT Surgery [place] [address] Lisette Schwartz MD [facility] [place] [address] CATARACT EXTRACTION, EXTRACAPSULAR, WITH LENS INSERTION, COMPLEX (WRVU 10.25) Social History Tobacco Use Types Packs/Day Years [...] Sign Reading Time Taken Comments Blood Pressure 178/92 07/18/2012 7:02 AM EDT Pulse 104 07/18/2012 7:02 AM EDT Temperature 36.7 ??C (98.1 ??F) 07/18/2012 7:02 AM ED T Respiratory Rate 18 07/18/2012 7:02 AM EDT Oxygen Saturation 94% 07/18/2012 7:02 AM EDT Inhaled Oxygen Concentration - - [...] Schwartz MD - 07/18/2012 2:[address] [facility] Operative Note Patient Name: Maurice Rudolph : [id number] MR#: [id number] Case Date: 07/18/2012 Surgeon: Surgeon(s) and Role: * Lisette Schwartz MD - Primary LINE HAUL OWNER OPERATOR: Staff. PREOPERATIVE DIAGNOSIS: Mature cataract, right eye. [...] Operative Note Patient Name: Maurice Rudolph : [id number] MR#: [id number] Case Date: 07/18/2012 Surgeon: Surgeon(s) and Role: [...] Day of Surgery (Day of Procedure) 0715 ([facility] ider: Francoise Ang RN) documented in this encounter Care Teams Goodwill Ambassador Relationship Specialty Start Date End Date Ej Duran MD [address] [place] [address] PCP - General 10/28/11 06/04/18 documented as of this encounter
--- OUTSIDE RECORDS SUMMARY | 2023-12-28 16:41 | XMS_ITS ---
[place] [address] Care Team Providers Care Real Estate Agency Licensee Name Role Phone Kimani Leger MD Primary Care Provider [phone] Transplant Episode Kidney Candidate [facility] ([place], [place]) [facility] Evaluation began on 02/06/2020 Marked as Ineligible on 01/13/2021 Reason: Unable to Contact Patient Kidney CoordinatorSherie Mccallum APRN Phone: N/A Fax: N/A Email: N/A Scores Score Value Updated Exceptions/Reas ons CPRA Not available EPTS (Calc) 94 12/28/2023 [place] Organ Diagnosis Organ Primary Contributory Kidney Diabetes Mellitus - Type I Care Team Name Role Phone Fax Email Sherie Mccallum APRN Kidney Coordinator N/A N/A N/A Cheryl Presley RD Registered Dietitian N/A N/A N/A Too Morgan MD Referring Physician N/A N/A N/A Ana Hernández Scouring Train Operator N/A N/A N/A Ines Nye MSW Hyperbaric Technician N/A N/A N/A Young Watts MD Transplant Physician N/A N/A N/A Events Pre-Transplant Referred: 12/18/2019 Evaluation began: 02/06/2020 Committee: 01/13/2021 Pending Checklist Tasks (Due on or before 01/28/2024) Name Due Date Attached Appoint ment Coordinator Review of Records 07/13/2020 Dialysis History Dialysis History Start End Type Comments Center 02/15/2017 In-center Hemodialysis T-Th- [facility] Dialysis Center Information Center Phone Fax Address [facility] [phone] [address] [facility] [address]
--- OUTSIDE RECORDS SUMMARY | 2023-12-28 16:41 | XMS_ITS | Encounter Summary ---
Author Organization [facility] [place] [address] Care Team Providers Care Chinese Medicine Practitioner Name Role Phone Ej Duran MD Primary Care Provider [phone] Reason for Visit * Reason Comments Eye Problem VA loss OS (see Meredith meneses notes) Encounter Details Date Type Department Care Team (Late st Contact Info) Description 12/06/2011 3:30 PM EDT Office [place] [address] Miriam Hancock MD [facility] [place] [address] PDR (proliferative diabetic retinopathy) (Primary Dx) Discharge [...] Progress Notes * Miriam Hancock MD - 12/06/2011 4:29 PM EDT OD: chronic vit heme due to PDR OU: cataracts OS: ischemic optic neuropathy, variation of diabetic papillitis (swollen nerve with acute vision loss) and early venous status pattern. There is also residual patent NVD. Imp: 1. Needs diabetic control and HTN control. Directed to return to PCP for help in this area. 2. Needs additional PRP for NVD. 3. Following PRP, consider avastin series for veinous occlusive component. Plan: Schedule 3 appointments (2 for PRP supplement, then avastin Rx OS) documented in this encounter Nursing Notes * 12/06/2011 3:30 PM EDT >> MIRIAM HANCOCK MD Mon Dec 06, 2011 4:30 PM Known PDR OU. OD chronic vit heme, considering vitrectomy. OS post PRP for PDR. Was 20/25 OS, then sudden drop in vision to 20/200 last week during the night. Awoke with blurry vision. >> MICK Stallings TueDec 06, 2011 3:23 PM Pt c/o VA loss OS, can see face but no distinct features, every thing is blurry like looking through a fog started Dec 01. Pt c/o dull aching pain OS, sometimes sees stars when he closes OS, especially when he had laser tx in August 2011. BSL this morning was 151. documented in this encounter Plan of Treatment Not on file documented as of this encounter Visit Diagnoses Diagnosis PDR (proliferative diabetic retinopathy)- Primary Type II or unspecified type diabetes mellitus with ophthalmic manifestations, not stated as uncontrolled documented in this encounter Care Teams Chinese Medicine Practitioner Relationship Specialty Start Date End Date Ej Duran MD [address] [place] [address] PCP - General 10/28/11 06/04/18 documented as of this encounter
--- OUTSIDE RECORDS SUMMARY | 2023-12-28 16:41 | XMS_ITS | Referral Summary ---
Author Organization [facility] Address [address] [place] [address] Care Team Providers Care Towel Sorter Name Role Phone Sanjay AirannaJarad barrientos Maeve DNP Primary Care Provider [phone] Allergies No known active allergies Medications Medication [...] mouth every , , Sat (Dialysis). Active mv,My-HP-[id number]-OM-3-dha- epa-fish (PRORENAL QD) 400-500 mcg-unit capsule Take [...] Cellulitis 10/12/2018 ESRD (end stage renal disease) ([facility]) 019 Social History Tobacco Use Types Packs/Day Years [...] Body Mass Index 38.52 10/12/2018 1301 EDT Functional Status Functional Status Response Date of [...] (5 years old or older) No 10/12/2018 Plan of Treatment Not on file Procedures Procedure Name Priority Date/Time Associated Diagnosis Comments HEPATITIS C AB W REFLEX TO HCV RNA BY PCR Routine 07/31/2021 10:10 EDT from Last 3 Months or Most Recently Relevant to Health Maintenance Results * HEPATITIS C AB W REFLEX TO HCV RNA BY PCR (07/31/2021 10:10 EDT) Hep C Antibody Negative Negative 08/03/2021 9:53 EDT [facility] Blood VENOUS BLOOD / Unknown 07/31/2021 10:10 EDT 07/31/2021 21:21 EDT Provider Outr Resulting Lab CHEMISTRY & BLOOD GAS ORDERABLES [facility] [address] [place] [address] from Last 3 Months or Most Recently Relevant to Health Maintenance Advance Directives For more information, please contact: [phone] * Full Code (Latest Code Status on File) Date Activated Date Inactivated Comments 10/12/2018 13:48 10/14/2018 16:39 Question Answer Comments Reason for decision includes: Full code consistent with overall plan of care Who participated in the discussion? Patient Care Teams Towel Sorter Relationship Specialty Start Date End Date Jarad Iglesias, DANIKA [facility] [place] [address] PCP - General 10/12/18
--- OUTSIDE RECORDS SUMMARY | 2023-12-28 16:41 | XMS_ITS | Encounter Summary ---
Author Organization [facility] [place] [address] Care Team Providers Care Cardiac Specialist Name Role Phone Ej Duran MD Primary Care Provider [phone] Reason for Visit * Reason Comments PDR Patient presents for postoperative evaluation of the right eye but notes distortion in the left eye. CBC M.D. Chronic Angle Closure Glaucoma OD Vitreous Hemorrhage OD Encounter Details Date Type Department Care Team (Late st Contact Info) Description 05/03/2012 12:45 PM EST Office Visit [place] [address] Matteo Diane MD [facility] [place] [address] Proliferative diabetic retinopathy of both eyes. Stable status post complex vitrectomy right eye. Status post PRP laser left eye. Rule out edema left eye. (Primary Dx); Acute angle-closure glaucoma of right eye. Status post gas exchange. Stable status post PI and medication. Hyperopia.; Diabetes mellitus; Hyperopia Discharge Disposition: Home Social History Tobacco Use [...] Progress Notes * Matteo Diane MD - 05/03/2012 1:47 PM EST The patient is stable in the right eye after complex vitrectomy for severe ischemic proliferative diabetic retinopathy. The angle-closure has subsided and the retina is nicely attached. Return 2 weeks for dilated examination of both eyes. OCT retinal thinning but no edema. ? Mild vitreofoveolar attachment. FA few mas. CL exam OS next also We will secure the fluorescein angiogram today given his chief complaint of metamorphopsia in the left eye so as to rule out macular edema. The OCT scan today as well. documented in this encounter Plan of Treatment Not on file documented as of this encounter Procedures Procedure Name Priority Date/Time Associated Diagnosis Comments FLUORESCEIN ANGIOGRAPHY - OS - LEFT EYE Routine 05/03/2012 2:38 PM EST Proliferative diabetic retinopathy of both eyes. Stable status post complex vitrectomy right eye. Status post PRP laser left eye. Rule out edema left eye. FUNDUS PHOTOS - OS - LEFT EYE Routine 05/03/2012 2:37 PM EST Proliferative diabetic retinopathy of both eyes. Stable status post complex vitrectomy right eye. Status post PRP laser left eye. Rule out edema left eye. documented in this encounter Results * FLUORESCEIN ANGIOGRAPHY - OS - LEFT EYE (05/03/2012 2:38 PM EST) Anatomical Region Laterality Modality Other Narrative 05/03/2012 2:38 PM EST Fluorescein exam was indicated by virtue of the patient's complaint of decreased vision and metamorphopsia in the left eye. This revealed a few microaneurysms but a suggestion of early leakage but no late leakage pooling or staining was ascertained. Ischemia appears to be present but this is not conclusive. Please note that OCT scan revealed marked retinal thinning Matteo Diane M.D. Procedure Note Matteo Diane MD - 05/03/2012 Fluorescein exam was indicated by virtue of the patient's complaint ofdecreased vision and metamorphopsia in the left eye. This revealed a fewmicroaneurysms but a suggestion of early leakage but no late leakagepooling or staining was ascertained. Ischemia appears to be present butthis is not conclusive. Please note that OCT scan revealed marked retinalthinning Matteo Diane M.D. Matteo Diane [facility] * FUNDUS PHOTOS - OS - LEFT EYE (05/03/2012 2:37 PM EST) Anatomical Region Laterality Modality Other Narrative 05/03/2012 2:37 PM EST The fundus photograph of the left eye reveals a few microaneurysms with a macular architecture looks good. No gross membrane formation is seen. Please note also the OCT scan revealed significant retinal thinning but no edema was ascertained. ESTRELLA FERRO Procedure Note Matteo Diane MD - 05/03/2012 The fundus photograph of the left eye reveals a few microaneurysms with amacular architecture looks good. No gross membrane formation is seen.Please note also the OCT scan revealed significant retinal thinning but noedema was ascertained. ESTRELLA FERRO Matteo Diane [facility] ORDER[facility] documented in this encounter Visit Diagnoses Diagnosis Proliferative diabetic retinopathy of both eyes. Stable status post complex vitrectomy right eye. Status post PRP laser left eye. Rule out edema left eye.- Primary Type II or unspecified type diabetes mellitus with ophthalmic manifestations, not stated as uncontrolled Acute angle-closure glaucoma of right eye. Status post gas exchange. Stable status post PI and medication. Hyperopia. Acute angle-closure glaucoma Diabetes mellitus Type II or unspecified type diabetes mellitus without mention of complication, not stated as uncontrolled Hyperopia Hypermetropia documented in this encounter Care Teams Cardiac Specialist Relationship Specialty Start Date End Date Ej Duran MD [address] [place] [address] PCP - General 10/28/11 06/04/18 documented as of this encounter
--- OUTSIDE RECORDS SUMMARY | 2023-12-28 16:41 | XMS_ITS | Encounter Summary ---
[place] [address] Care Team Providers Care Pals Nurse Name Role Phone Petros Daley DO Primary Care Provider Encounter Details Date Type Department Care Team (Late st Contact Info) Description 07/29/2011 Orders [place] [address] Matteo Diane MD [facility] [place] [address] Vitreous hemorrhage, right eye (Primary Dx) Social History Tobacco Use Types [...] Vitreous hemorrhage, right eye- Primary Vitreous hemorrhage documented in this encounter Care Teams Pals Nurse Relationship Specialty Start Date End Date Petros Daley DO [address] [place] [address] PCP - General 06/15/11 10/27/11 documented as of this encounter
--- OUTSIDE RECORDS SUMMARY | 2023-12-28 16:41 | XMS_ITS | Encounter Summary ---
[place] [address] Care Team Providers Care Educational Sign Language Interpreter Name Role Phone Ej Duran MD Primary Care Provider [phone] Reason for Visit * Reason Comments Eye Problem increased IOP OD Encounter Details Date Type Department Care Team (Late st Contact Info) Description 04/06/2012 1:30 PM EST Office [place] [address] Phillip Schwartz MD [facility] [place] [address] Acute angle-closure glaucoma of right eye (Primary [...] Notes * Phillip Schwartz MD - 04/06/2012 2:30 PM EST Assess POD #3 retinal repair [...] Vig RV 2 days Sat 04/09 Hck documented in this encounter Plan of Treatment Not on file documented as of this encounter Visit Diagnoses Diagnosis Acute angle-closure glaucoma of right eye- Primary Acute angle-closure glaucoma documented in this encounter Care Teams Educational Sign Language Interpreter Relationship Specialty Start Date End Date Ej Duran MD [address] [place] [address] PCP - General 10/28/11 06/04/18 documented as of this encounter
--- OUTSIDE RECORDS SUMMARY | 2023-12-28 16:41 | XMS_ITS | Encounter Summary ---
Author Organization [facility] [place] [address] Care Team Providers Care Membership Manager Name Role Phone Ej Duran MD Primary Care Provider [phone] Reason for Visit * Reason Comments Decreased Visual Acuity Pt complains of a sudden onset of decrease VA OS over the last week, seems that VA is getting worse, VA is very blurry, can not even read. Encounter Details Date Type Department Care Team (Late st Contact Info) Description 12/03/2011 10:30 AM EDT [place] [address] Marquise Cárdenas MD [facility] [place] [address] Diabetes mellitus; Diabetic retinopathy; Proliferative diabetic retinopathy, both eyes Discharge Disposition: [...] as of this encounter Progress Notes * Marquise Cárdenas MD - 12/03/2011 11:35 AM EDTAddended by: MARQUISE CÁRDENAS on: 12/03/2011 Modules accepted: Orders * Marquise Cárdenas MD - 12/03/2011 11:26 AM EDT PDR S/p PRP OS. Vision has decreased. Don't see any vit hemorrhage . Possible macular edema or ischemia. Should be evaluated by medical retina and get testing as needed to determine if further tx is needed. Will get OCT and FA today and will have pt see dr gonzalez Tuesday . documented in this encounter Nursing Notes * 12/03/2011 10:30 AM EDT >> MARQUISE CÁRDENAS MD TueDec 03, 2011 11:26 AM PDR . Had PRP OS in august by CBC. Also has vit hemorrhage and awaiting surgery. Htn. Vision in august os20/25. Has dropped since the laser treatment. Gradual decline. Worse over the last week. Throbbing sensation. >> MICK ROSARIO TueDec 03, 2011 11:04 AM Description:Patient presents with: Decreased Visual Acuity - Pt complains of a sudden onset of decrease VA OS over the last week, seems that VA is getting worse, VA is very blurry, can not even read. Had PRP OS for Diabetic retinopathy (09/21/11). Is HM with OD. 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 documented in this encounter Plan of Treatment Not on file documented as of this encounter Procedures Procedure Name Priority Date/Time Associated Diagnosis Comments OCT RETINA - OS - LEFT EYE Routine 12/03/2011 4:53 PM EDT Diabetic retinopathy Proliferative diabetic retinopathy, both eyes FLUORESCEIN ANGIOGRAPHY - OS - LEFT EYE Routine 12/03/2011 4:53 PM EDT Diabetic retinopathy Proliferative diabetic retinopathy, both eyes documented in this encounter Results * FLUORESCEIN ANGIOGRAPHY - OS - LEFT EYE (12/03/2011 4:53 PM EDT) Anatomical Region Laterality Modality Other Narrative 12/03/2011 4:53 PM EDT My prelim reading Some leakage around the nerve. ??Some leakage around the macular area. Dr gonzalez to confirm Procedure Note Marquise Cárdenas MD - 12/03/2011 My prelim reading Some leakage around the nerve. Some leakage around the macular area. Dr gonzalez to confirm Marquise Cárdenas MD OPHTHALMOLOGY SERVIC [facility] ORDERABLES * OCT [id number] EYE (12/03/2011 4:53 PM EDT) Anatomical Region Laterality Modality Other Narrative 12/03/2011 4:53 PM EDT My preliminary reading is macular edema, elevation seen on oct. ?? Dr gonzalez to confirm Procedure Note Marquise Cárdenas MD - 12/03/2011 My preliminary reading is macular edema, elevation seen on oct. Dr gonzalez to confirm Marquise Cárdenas MD OPHTHALMOLOGY SERVIC [facility] ORDERABLES documented in this encounter Visit Diagnoses Diagnosis Diabetes mellitus Type II or unspecified type diabetes mellitus without mention of complication, not stated as uncontrolled Diabetic retinopathy Type II or unspecified type diabetes mellitus with ophthalmic manifestations, not stated as uncontrolled Proliferative diabetic retinopathy, both eyes Type II or unspecified type diabetes mellitus with ophthalmic manifestations, not stated as uncontrolled documented in this encounter Care Teams Membership Manager Relationship Specialty Start Date End Date Ej Duran MD [address] [place] [address] PCP - General 10/28/11 06/04/18 documented as of this encounter
--- OUTSIDE RECORDS SUMMARY | 2023-12-28 16:41 | XMS_ITS | Encounter Summary ---
[place] [address] Care Team Providers Care Show Host Or Hostess Name Role Phone Ej Duran MD Primary Care Provider [phone] Encounter Details Date Type Department Care Team (Late st Contact Info) Description 04/14/2012 4:45 PM EST Office [place] [address] Matteo Diane MD [facility] [address] [place] [address] Acute angle-closure glaucoma of right eye.stable status post peripheral iridectomy; Proliferative diabetic retinopathy, both eyes.stable status post vitrectomy for severe ischemic retinopathy.; Vitreous hemorrhage, right eye Discharge Disposition: Home [...] Progress Notes * Matteo Diane MD - 04/16/2012 8:40 PM EST The retina stable despite the severity of ischemic retinopathy. The anterior chamber is certainly deeper and a peripheral iridectomy is patent. Continue medication. Return one week for stat of decreased vision brow ache, nausea vomiting, decreased vision etc.! Position on either side do not position on back documented in this encounter Plan of Treatment Not on file documented as of this encounter Visit Diagnoses Diagnosis Acute angle-closure glaucoma of right eye.stable status post peripheral iridectomy Acute angle-closure glaucoma Proliferative diabetic retinopathy, both eyes.stable status post vitrectomy for severe ischemic retinopathy. Type II or unspecified type diabetes mellitus with ophthalmic manifestations, not stated as uncontrolled Vitreous hemorrhage, right eye Vitreous hemorrhage documented in this encounter Care Teams Show Host Or Hostess Relationship Specialty Start Date End Date Ej Duran MD [address] [place] [address] PCP - General 10/28/11 06/04/18 documented as of this encounter
--- OUTSIDE RECORDS SUMMARY | 2023-12-28 16:42 | XMS_ITS | Summary of Care ---
Author Organization [facility] Address [address] [place] [address]- Encounter 08/14/19 - 09/07/[address] [address]- [phone] Encounter Diagnosis ESRD(Discharge Diagnosis) - 09/06/19 Fall with TBI(Discharge Diagnosis) - 09/06/19 T1-4, L1-2 Transverse Process Fractures(Discharge Diagnosis) - 09/06/19 MSSA Pneumonia(Discharge Diagnosis) - 09/06/19 Right Clavicle, Scapula and Humeral Head Fractures(Discharge Diagnosis) - 09/06/19 Discharge Disposition: Home with Home Health Care Attending Physician: Vicente Ferraro MD Admitting Physician: Vicente Ferraro MD Referring Physician: Young Carranza MD Allergies, Adverse Reactions, Alerts No Known Medication Allergies Assessment and Plan Extracted from: Title:Inpatient Clinical Summary Author:Marissa Nicole CM Date:09/07/[address] [address] Fax:?? [phone] Clinical Discharge Summary PERSON INFORMATION Name SINDI RUDOLPH [id number] Sex Male Age 59 Years Race White Admitted 08/14/2019 15:46:00 Discharged [address]: [address] [place] [id number] PROVIDER INFORMATION Attending Physician: Vicente Ferraro MD Consulting Physician: Yobany Thomson MD, MD, Amarilys DIAGNOSIS ESRD; Fall with TBI; MSSA Pneumonia; Right Clavicle, Scapula and Humeral Head Fractures; T1-4, L1-2 Transverse Process Fractures Current Vitals Temp Oral: 97.5 DegF Temp Tympanic: Temp Axillary: Temp Rectal: SPO2 : 96 % Respiratory Rate: 17 br/min Peripheral Pulse Rate: 101 bpm Apical Heart Rate: Blood Pressure: 140 mmHg / 78 mmHg Discharge Orders ??Order Name Order Details : Electronically Signed By: Discharge Additional Instructions 09/07/19 10:24:00 EDT, Please check your blood pressures and heart rates daily after you get up in the morning and in afternoon. Keep a record, present this record to your PCP to review blood pressure medications and determine need for adjustments. Victor M Padgett APRN Discharge Additional Instructions 09/07/19 10:22:00 EDT, Some of your medications have CHANGED. You are no longer on a few blood pressure medications because of your dizziness/lightheadedness with walking and movement. This is called orthostatic hypotension. Your PCP will evaluate to restart meds if needed. Victor M Padgett APRN Discharge Diet 09/07/19 10:18:00 EDT, Renal Diet, Consistent Carbohydrate Victor M Padgett APRN Discharge Orthostatic Precautions 09/07/19 10:21:00 EDT, Sit prior to Standing, CONTINUE TO USE COMPRESSION WRAPS TO YOUR LOWER LEGS AND YOUR ABDOMINAL BINDER DAILY WHILE YOU ARE UP AND AROUND. MAY TAKE THEM OFF AT NIGHT. Victor M Padgett APRN Discharge Weight Bearing 09/07/19 10:19:00 EDT, RUE, Do not bear weight through Right shoulder for 6 weeks after your fall and until cleared to do so by Orthopedics at follow up. You may perform range of motion and utilize elbow, hand/wrist on right side Victor M Padgett APRN MEDICAL INFORMATION Allergy Info: No Known Medication Allergies Medications: acetaminophen??(acetaminophen??325??mg??oral??tablet) 3??tab(s)??Oral??every??8??hours??as??needed??PAIN??(Scale??1-10)., Maximum??of??3,250mg??of??Acetaminophen??per??24??hours aspirin??(Ecotrin??325??mg??oral??delayed??release??tablet) 1??tab(s)??Oral??every??day. camphor-menthol??topical??(Sarna??0.5%-0.5%??topical??lotion) 1??Application??Topical??3??times??a??day??as??needed??Itching. diclofenac??topical??(diclofenac??1%??topical??gel) 2??Gram??Topical??once??a??day??(at??bedtime).??Refills:??0. famotidine??(famotidine??10??mg??oral??tablet) 1??tab(s)??Oral??Two??Times??Per??Day??as??needed??Dyspepsia. gabapentin??(gabapentin??100??mg??oral??capsule) 2??cap??Oral??every??day.??Refills:??0., TIME??SENSITIVE levETIRAcetam??(levETIRAcetam??500??mg??oral??tablet) 1??tab(s)??Oral??every??day.??Refills:??0., TIME??SENSITIVE Look??Alike??Sound??Alike??(LASA) multivitamin??(Renal??Caps) 1??cap??Oral??every??day. pravastatin??(pravastatin??40??mg??oral??tablet) 1??tab(s)??Oral??once??a??day??(at??bedtime).??Refills:??0. sertraline??(sertraline??25??mg??oral??tablet) 1??tab(s)??Oral??every??day.??Refills:??0. sevelamer??(sevelamer??hydrochloride??800??mg??oral??tablet) 1??tab(s)??Oral??three??times??a??day??(with??meals). tamsulosin??(tamsulosin??0.4??mg??oral??capsule) 1??cap??Oral??every??day.??Refills:??0., Do??not??open.??Swallow??whole??do??not??crush??or??chew. Patient Care Team Discharge Instructions: 09/07/19 10:21 EDT Performed by Marissa Nicole CM Pile Driving Technician Discharge Instructions Discharged to: Home with home health Professional Skilled Services: Nursing, Occupational Therapy, Physical Therapy, Social Work Mode of Discharge: Wheelchair Discharge Transportation: Other: community transport Case Management DC Instructions General Discharge Instructions ALDO: Congratulations on achieving your goals! You are being discharged home with services from [facility]. It has been my pleasure being your Pile Driving Technician. Should you have any questions after your discharge, you can reach us at [phone]. Physician at [facility]: Dr. Ferraro Primary Care Physician: SOBEIDA Barrientos For Questions: If you have questions regarding these instructions or if there are any changes in your discharge needs or location within 3 days of discharge, please call your [facility] Pile Driving Technician 09/07/19 10:14 EDT Performed by Victor M Padgett APRN Updated on 09/07/19 10:22 EDT by Marissa Nicole CM Physician Discharge Instructions Home Health Services Physical Therapy: Yes Occupational Therapy: Yes Nursing: Yes Home Health Aide: Yes Social Work: Yes Diet Instructions: continue diabetic, renal diet You have succesfully decreased use of Hydromorphone for pain, it is safest practice to stop this at this time as it is not a mcc medication and can cause breathing suppression. Use xtra strength tylenol/ice for pain. Other Instructions: Please resume Insulin Pump per your instructions through Endocrinology, follow up with Endocrine as instructed at your telehealth follow up. Monitor your sugars daily and monitor for hypoglycemia, please ensure you take a diabetic snack at bedtime. Other Instructions 2: F/U PCP within 1-2 weeks F/U Orthopedics within 1 month. F/U Ophthamology within 1 month. Dialysis T, Th, Sat through [facility], f/u Nephrology within 1 week 09/06/19 12:39 EDT Performed by Danuta Richard Updated on 09/07/19 10:25 EDT by Marissa Nicole CM 09/07/19 08:32 EDT by Guevara PT, Era 09/07/19 01:01 EDT by Danial RN, Laura 09/07/19 01:00 EDT by Danial RN, Laura 09/06/19 14:57 EDT by Yashira Gerardo Continuity of Care Reason for Rehabilitation Admission: Patient was admitted for therapy related to dx of MSSA infection and deconditioning. (modified) Donor Processor History: CM reviewed progress in therapy, insurance and home care options. Patient/Family Goal and Desired Outcome: Plan is to get to a Mod I level of function in order to return home. Discharge Plan: Patient to discharge home with necessary services. 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 Emergency Contacts GRID Emergency Name-Emergency Kaye Rudolph Relationship to Patient-Emergency Primary Phone #-Emergency [phone] Device Type-Emergency Mobile Durable Medical POA Name-Durable Medical POA Adriana Lopez Relationship to Patient-Durable Medical sister/DPOAH Primary Phone #-Durable Medical POA [phone] Device Type-Durable Medical POA Mobile Case Management Education: CM followed up with patient on VNA, dialysis, and securing rides through community transportation. Home Health Care Provider: [facility] Tel - [phone] Fax - Advance Directive Advanced Directives: Yes Advance Directive Type: Medical durable power of contract attorney Medical Power of Buttoner Name: siblings Allergies Allergy / Reaction No Known Medication Allergies Nursing Information Diet Type: Regular Diet (IDDSI Level 7) -- 08/14/19 16:03:00 EDT, Diabetic diet Renal, Thin (IDDSI Lev 0) Appetite: Good Blood Glucose Frequency: Four times a day, before meals Skin Integrity: Intact, no abnormalities Bowel Management: Continent Bowel Movement Last Date: 09/03/19 Bowel Program: None Bladder Management: Continent Urinary Elimination: Anuria Latest Vitals: Latest Vitals Cuff Size.: Small (09/05/19 20:00:00) Diastolic Blood Pressure: 92 mmHg High (09/06/19 08:05:00) Diastolic Blood Pressure Post: 90 (09/06/19 14:00:00) Diastolic Blood Pressure with Activity: 79 mmHg (09/03/19 08:30:00) Extremity used to obtain blood pressure: Right Arm (09/05/19 20:00:00) Height/Length Dosing Inches: 64 in (09/04/19 06:04:00) Mean Arterial Pressure, Cuff: 93 mmHg (08/17/19 14:15:00) Oxygen Flow Rate Post: 1 (08/24/19 10:30:00) Oxygen Therapy Post: Nasal cannula (08/24/19 10:30:00) Peripheral Pulse Rate: 90 bpm (09/06/19 08:05:00) Peripheral Pulse Rate Post: 117 (09/06/19 14:00:00) Peripheral Pulse Rate with Activity: 104 bpm (09/03/19 08:30:00) Respiratory Rate: 18 br/min (09/06/19 08:05:00) SpO2 Post: 99 (08/24/19 10:30:00) Systolic Blood Pressure: 151 mmHg High (09/06/19 08:05:00) Systolic Blood Pressure Post: 150 (09/06/19 14:00:00) Systolic Blood Pressure with Activity: 122 mmHg (09/03/19 08:30:00) Temperature Oral: 36.4 DegC (09/06/19 08:05:00) Temperature Oral F: 97.5 DegF (09/06/19 08:05:00) Temperature Temporal: 98 DegF (09/03/19 05:10:00) Vital Signs Additional Information: done in sitting, standing with rw bp 108/77 with slight c/o lightheadedness knee high acewrapping for bp support (08/29/19 13:00:00) Vital Signs Additional Information Post: after supine ex in sitting with teds and ab binder taken in standing 117/70 115 (09/06/19 14:00:00) Vital Signs w/ Activity Additional Info: after ambulation 150 ft, took in standing no apryl wraps on lewith standing ther ex- 118/79 HR 108 (09/03/19 08:30:00) Weight Dosing lbs: 207.4 lb (09/04/19 06:04:00) Did Patient Bring Own Meds: No Self Care Self Care Grid [id number] Eating: Ind QD6128 Oral Hygiene: Ind DS7695 Toileting Hygiene: Ind VJ5153 Toilet Transfer: Ind QH9367 Upper Body Dressing: Ind RV3456 Lower Body Dressing: Ind UO3526 Putting On, Taking Off Footwear: Ind MR0002 Shower, Bathe Self: Ind Additional Self Care Grid Wash/Dry hands Functional Status: Ind Wash/Dry face Functional Status: Ind Tub/Shower Transfer: Sup/Touch A Self Care Details Grid Self-Care Oral Hygiene Oral Hygiene Descriptor Wheelchair level Self Care-Toileting Self Care Toileting Equipment Elevated toilet seat with handles, Grab bars Self Care-Toilet Transfers Self Care Toilet Transfers Equipment Elevated toilet seat with handles, Grab bars Self Care-Upper body dressing Upper body dressing Descriptor Sit - unsupported short Self Care-Lower body dressing Lower body dressing Descriptor Sit - unsupported short, Standing with device Self Care Lower body dressing Equipment Grab bars Self Care-Don/Doff footwear Self Care Don Doff footwear Equipment Elastic shoe laces Self Care-Shower/Bath self Shower/Bathing self Descriptor Sit - unsupported short Self Care Shower Bath self Equipment Grab bars, Hand held shower, Long handled bath sponge, Shower seat with back Self Care-Wash/Dry hands Wash/Drying hands Descriptor Sit - unsupported short Self Care-Wash/Dry face Wash/Drying face Descriptor Sit - unsupported short [id number] Expression of Ideas and Wants: Expresses w/o difficulty & with clear speech - 4 [id number] Understanding Verbal Content: Understands -4 Reviewed Basic ADL's: Yes DME OT OT Equipment Anticipated, Recommended: Other: pt reportedly has SC, shower chair, dip tanker, sock aide, LHSH, GB @ toilet at home OT Equipment Issued: Pressure Vessel Inspector, Shoe laces, elastic, Sock aide, Sponge, long handled, Other: heelbow, memory foam added to sling strap for comfort /c good results. toilet aide OT Recommendations IP Patient Impairments/Limitations-OT: Balance deficits, Basic ADL deficits, Decreased knowledge of condition, Impaired activity tolerance, Decreased knowledge of equipment use, Home accessibility/housing, IADL deficits, Mobility deficits, Pain limiting function, Impaired judgment/safety awareness, Strength deficits, Visual perceptual deficits OT Anticipated Treatments, Needs: Balance training, Basic activities of daily living, Caregiver training, Cognitive training, Energy conservation training, Engage in meaningful activities, Environmental changes, Equipment training, Home assessment/modification, Home management, Home program, Kinesiotape, Manual therapy, Mobility training, Orthotic/Splint training, Pain management, Parenting/Care of others, Patient education, Safety education, Therapeutic exercises, Therapeutic use of self, Thermal modalities, Visual and perceptual training Recommendations Comment OT: Recommend home OT, LIQUOR MAKER, MOW, homemaker OT Team Notes Current: Yes Mobility Mobility/Transfers Grid [id number] Roll Left and Right: Ind ER5360 Sit to Lying: Ind QA1749 Lying to Sitting on Side of Bed: Ind HI8054 Sit to Stand: Ind OH1307 Chair,Bed to Chair Transfer: Ind RC3250 Car Transfer: Sup/Touch A OT5467 Walk 10 Feet: Ind UI6402 Walk 50 Feet with Two Turns: Ind VI2302 Walk 150 Feet: Ind RG0859 Walk 10 Feet Uneven Surfaces: Sup/Touch A TG7704 1 Step (Curb): Sup/Touch A KZ7294 4 Steps: Sup/Touch A IV5386 12 Steps: Sup/Touch A CM7951 Picking Up Object: Ind FV9208 Patient Use Wheelchair,Scooter: Yes AY9424 Wheel 50 Feet with Two Turns: Ind KG0411 Wheel 150 feet: Ind NU5432 Type Wheelchair,Scooter Use 50ft: Manual wheelchair ZJ4014 Type Wheelchair,Scooter Use 150ft: Manual wheelchair Mobility/Transfers Details Grid Mobility/Transfer Roll left and right Roll left and right Descriptor Independent Mobility/Transfer Sit to lying Sit to lying Descriptor Independent Mobility/Transfer Lying to sitting Lying to sitting Descriptor Independent Mobility/Transfer Sit to stand Sit to stand Descriptor Independent, Wheelchair level Mobility/Transfer Chair/bed to willard tubbs Chair/bed to chair transfer Descriptor Independent Chair/bed to chair transfer Type Trans Stand pivot Mobility/Transfer Car transfers Car transfers Adaptive Equipment Other: mock car Car transfers Assistance Provided Supervision Mobility/Transfer Ambulat-Level Surfaces Ambulation- Level Descriptor Independent Ambulation- Level Adaptive Equipment Other: adapted rollator , ab binder, femi TEDs(latter 2 needed for bp support when needed) Ambulation- Level Skilled Assist No Assistance Ambulation- Level Distance 150 ft Ambulation- Level Comments dressing stick attached to rollator for single ue control Mobility/Transfer Ambula-Uneven Surfaces Ambulation- Uneven Adaptive Equipment Other: adapted rollator, abd binder and teds (latter 2 needed for BP support) Ambulation- Uneven Skilled Assist Contact guard, Supervision Ambulation- Uneven Distance 15 ft Ambulation- Uneven Comments dressing stick attached to rollator for single ue control Mobility/Transfer Stairs Stairs Adaptive Equipment Bilateral rails Stairs Assistance Provided Supervision Stairs Number of steps 12 Stairs Comments step over step to ascend and step to step to descend Mobility/Transfer WC-Level Surfaces Wheelchair Mobility- Level Descriptor Independent WC Mobility Level- Adaptive Equipment Wheelchair WC Mobility- Level Skilled Assist No Assistance WC Mobility- Level Distance 150 ft Orthotic,Prosthetic Use: Other: ab binder, TEDs Orthotic,Prosthetic Details: using ab binder and TEDS for BP support when needed Reviewed Mobility: Yes WC Management WC Management Grid Lock Wheels: IND Unlock Wheels: IND Ability to remove seatbelt: Yes DME PT Equipment Anticipated or Recommended: Four Wheeled Walker PT Equipment Issued Rehab: Other: ab binder, dressing stick to use on rollator to adapt for single ue use,teds PT Recommendations IP Patient Impairments/Limitations-PT: Impaired gait, Balance deficits, Coordination/Proprioception deficits, Impaired sensation PT Anticipated Treatments, Needs: Balance training, Bed mobility training, Caregiver training, Edema management, Equipment training, Focused Breathing, Gait training, Ice, Manual therapy, Neuromuscular reeducation, Pain management, Patient education, Positioning/Repositioning/Elevation, Stair training, Stretching, Therapeutic exercises, Transfer training Recommendations Comment PT: PT eval and treat. PT Team Notes Current: Yes Cognition/Communication [id number] Expression of Ideas and Wants: Expresses w/o difficulty & with clear speech - 4 BW0465 Understanding Verbal Content: Understands -4 Cogntive Functional Status Grid RECHECKER Attention - RECHECKER: Independent Short Term Memory - RECHECKER: Independent Safety Awareness/Insight - RECHECKER: Independent Simple Problem Solving - RECHECKER: Independent Complex Problem Solving - RECHECKER: Independent Communication/Cognition Descriptors: Other: may need some assist due to visual deficits Communication/Cognition Equipment: Glasses, Bifocals or Contacts Orientation Grid Person: Independent Place: Independent Time: Independent Situation: Independent Biographical Information: Independent Attention Grid Focused: Independent Sustained: Independent Memory Cognition FS Grid Immediate Verbal: Independent Short Term/Working Memory: Independent Half-Way Verbal: Independent Basic Safety Awareness/Insight Grid Recognizes Problems: Independent Self Monitoring: Independent Self Correction: Independent Basic Problem Solving Grid Simple Verbal: Independent Simple Non-Verbal: Independent Complex Verbal: Independent Complex Non-Verbal: Independent Social Interaction FS Grid Eye Contact: Independent Personal Space: Independent Facial Expression: Independent Communicative Intent: Independent Gestures: Independent Topic Initiation: Independent Topic Maintenance: Independent Turn Taking: Independent Referencing Skills: Independent Completeness: Independent Basic Organization Grid Divergent Thinking: Independent Executive Function Cognition FS Grid Abstract Thinking: Independent Decision Making: Independent Goal Setting: Independent Humor: Independent Information Processing: Independent Initiation: Independent Planning: Independent Diet Type: Regular Diet (IDDSI Level 7) -- 08/14/19 16:03:00 EDT, Diabetic diet Renal, Thin (IDDSI Lev 0) RECHECKER Recommendations Planned RECHECKER Treatment, Needs: Other: no further RECHECKER recommended at d/c; WFL RECHECKER Progress Note Current: Yes 09/07/19 08:32 EDT Performed by Era Waterman PT Physical Therapy Discharge Instructions Safety and Weight Bearing: You can bear full weight on your legs, See Special Instructions Safety and Wt Bearing Special Inst: Use the ab binder and TEDs for blood pressure support when feeling dizzy and/or lightheaded. Getting In and Out of Bed: You can get in and out of bed independently On Level Surfaces Indoors: You can walk or use a wheelchair independently, See Special Instructions Level Surfaces Special Instructions: Use the rollator with the dressing stick attached across the handles for single ue control. On Pavement Outdoors: You must have someone with you, See Special Instructions Pavement Special Instructions: Use adapted rollator for support. On Curbs: See Special Instructions Curbs Special Instructions: No curbs. On Stairs: You must have someone with you, See Special Instructions Stairs Special Instructions: Hold onto the railings. PT Home Program: Continue with your exercises provided to you during your stay 09/06/19 12:40 EDT Performed by Arturo TRISTAN/Danuta Ojeda Occupational Therapy Discharge Instructions OT Safety and Weight Bearing: Follow safety instructions/precautions provided to you during your stay Safety and Wt Bearing Special Inst: Remember to continue to keep the weight off the RIGHT arm and limit movement/ use until cleared by orthopaedics. Use your walker when you are up walking or transferring between surfaces. Special Instructionss/Equipment: Grooming, Bathing, Hygiene, Dressing Equipment Special Instructions: Sitting down for bathing & dressing is safer and will decrease your risk for falling. Use the long handled tools as needed for those hard to reach tasks (like the sock aide to help put on the socks). Getting on and off a toilet: You can get on and off the toilet independently Getting In and Out of a Tub/Shower: You must have someone with you Tub/Shower Special Instructions: Have someone with you for safety initially, and continue to use the shower seat as well for safety. OT Home Program: Continue with your exercises provided to you during your stay Comment: Sindi - Best of luck at home & with your continued recovery. You've come a long way, keep up the good work and stay safe at home! It's been such a pleasure working with you!! -- Danuta 09/06/19 14:57 EDT Performed by Yashira Gerardo Updated on 09/06/19 14:59 EDT by Yashira Gerardo Speech Therapy Discharge Instructions Solids: Regular consistency Liquids: Regular consistency Swallowing Strategies: Sit upright when eating or drinking, Stay sitting upright after eating Communication Recommendations Text: No further RECHECKER recommended at discharge. It was great to meet you Sindi! Please stay safe!!! :) (modified) 09/07/19 01:01 EDT Performed by Danial GIMENEZ, Laura Medical/Nursing Discharge Instructions Breathing: Continue to use your incentive spirometer Diet: Refer to WITH notebook Discharge Bladder Management: Refer to WITH notebook Discharge Bowel Management: Refer to WITH notebook Pain Management: Medication, Reposition, Relaxation, Refer to WITH notebook Skin/Wound Care: Refer to WITH notebook When to Call Your Doctor: Unexplained Shortness of Breath, Uncontrolled Pain, Unexplained blood sugar of 200 mg/dl or greater for 2 days or if blood sugar is less than 70 mg/dl two times in one day, Fever of 100.4 F or higher, or chills PATIENT FOLLOW-UP INFORMATION With: Address: When: Dialysis [facility] [place], [place] Tel - [phone] Fax - [phone] 09/08/2019 7:30 AM Comments: Start time is 7:45, please arrive by 7:30am. With: Address: When: SOBEIDA Plasencia [facility] Tel - [phone] Fax - [phone] 09/13/2019 3:00 PM Comments: This is an in office visit, if this is to change someone from the office will contact you. With: Address: When: [facility] - Radiology, [facility], [address] 10/11/2019 10:45 AM With: Address: When: Dr. Louis [facility] - Orthopaedics, [facility], [address] Tel - [phone] Fax - [phone] 10/11/2019 11:30 AM With: Address: When: Dr. Harmeet Arvizu [facility] - Opthalmology [place], [place] Tel - [phone] Fax - [phone] 10/12/2019 2:30 PM Comments: Wire Temperer [facility] [address] With: Address: When: [facility] Tel - [phone] Fax - [phone] Comments: a outside dealer sales representative will contact you within 24-48 hours of discharge to set up an initial evaluation. Medications acetaminophen 325 mg oral tablet 975 mg = 3 tab, Oral, q8hr PRN, 0 Refill(s), PAIN (Scale 1-10) Start Date: 08/14/19 Status: Ordered diclofenac 1% topical gel 2 gm, Gel, TOP, QHS, 100 gm, Refill(s) 0, Route to Pharmacy Electronically, [facility] #[id number] Start Date: 09/07/19 Status: Ordered Ecotrin 325 mg oral delayed release tablet 325 mg = 1 tab, Tab-EC, Oral, Daily, 30 tab, 0 Refill(s) Start Date: 08/14/19 Status: Ordered famotidine 10 mg oral tablet 10 mg = 1 tab, Tab, Oral, BID PRN, 60 tab, 0 Refill(s), Dyspepsia Start Date: 08/14/19 Status: Ordered gabapentin 100 mg oral capsule 200 mg, 2 cap, Cap, Oral, Daily, 60 cap, 0 Refill(s), Route to Pharmacy Electronically, [facility] #[id number] Start Date: 09/07/19 Status: Ordered levETIRAcetam 500 mg oral tablet 500 mg, 1 tab, Tab, Oral, Daily, 30 tab, 0 Refill(s), Route to Pharmacy Electronically, [facility] #[id number] Start Date: 09/07/19 Status: Ordered pravastatin 40 mg oral tablet 40 mg = 1 tab, Tab, Oral, QHS, 30 tab, 0 Refill(s), Route to Pharmacy Electronically, [facility] #[id number] Start Date: 09/07/19 Status: Ordered Renal Caps 1 cap, Oral, Daily, 0 Refill(s) Start Date: 08/14/19 Status: Ordered Sarna 0.5%-0.5% topical lotion 1 lesa, Lotion, TOP TID, PRN, 222 mL, Refill(s) 0, Itching Start Date: 08/14/19 Status: Ordered sertraline 25 mg oral tablet 25 mg = 1 tab, Tab, Oral, Daily, 30 tab, 0 Refill(s), Route to Pharmacy Electronically, [facility][id number] Start Date: 09/07/19 Status: Ordered sevelamer hydrochloride 800 mg oral tablet 800 mg = 1 tab, Tab, Oral, TIDmeals, 180 tab, 0 Refill(s) Start Date: 08/14/19 Status: Ordered tamsulosin 0.4 mg oral capsule 0.4 mg = 1 cap, Cap, Oral, Daily, 30 cap, 0 Refill(s), Route to Pharmacy Electronically, [facility] #[id number] Start Date: 09/07/19 Status: Ordered Problem List Condition Effective Dates Status Health Status Inform ant Anxiety(Confirmed) Active Arthritis(Confirmed) Active CABG - Coronary artery bypas s graft(Confirmed) Active Cataract surgery(Confirmed) Active Diabetes mellitus(Confirmed) Active GERD - Gastro-esophageal ref lux disease(Confirmed) Active Glaucoma(Confirmed) Active Hyperlipidemia(Confirmed) Active Hypertension(Confirmed) Active Iridotomy(Confirmed) Active Morbid obesity(Confirmed) Active Results Laboratory List Name Date Glucose, POC 09/07/19 Glucose, POC 09/06/19 Glucose, POC 09/06/19 LABORATORY Most recent to oldest [Reference Range]: 1 2 3 WBC - CRD [4.23-9.07 x10^3/mcL] 4.53 x10^3/mcL (09/05/19 6:25 AM) 3.68 x10^3/mcL *LOW* (08/29/19 5:42 AM) 6.44 x10^3/mcL (08/22/19 5:45 AM) WBC Instrument - CRD [4.23-9.07 x10^3/mcL] 4.53 x10^3/mcL (09/05/19 6:25 AM) 3.68 x10^3/mcL *LOW* (08/29/19 5:42 AM) 6.44 x10^3/mcL (08/22/19 5:45 AM) RBC - CRD [4.00-5.74 x10^6/mcL] 2.89 x10^6/mcL *LOW* (09/05/19 6:25 AM) 2.66 x10^6/mcL *LOW* (08/29/19 5:42 AM) 2.71 x10^6/mcL *LOW* (08/22/19 5:45 AM) Hemoglobin - CRD [12.6-17.1 G/DL] 9.3 G/DL *LOW* (09/05/19 6:25 AM) 8.4 G/DL *LOW* (08/29/19 5:42 AM) 8.5 G/DL *LOW* (08/22/19 5:45 AM) Hematocrit - CRD [37.1-50.6 %] 29.7 % *LOW* (09/05/19 6:25 AM) 27.1 % *LOW* (08/29/19 5:42 AM) 27.5 % *LOW* (08/22/19 5:45 AM) MCV - CRD [82.1-98.2 fL] 102.8 fL *HI* (09/05/19 6:25 AM) 101.9 fL *HI* (08/29/19 5:42 AM) 101.5 fL *HI* (08/22/19 5:45 AM) MCH - CRD [25.7-32.2 pg] 32.2 pg (09/05/19 6:25 AM) 31.6 pg (08/29/19 5:42 AM) 31.4 pg (08/22/19 5:45 AM) MCHC - CRD [32.3-36.5 G/DL] 31.3 G/DL *LOW* (09/05/19 6:25 AM) 31.0 G/DL *LOW* (08/29/19 5:42 AM) 30.9 G/DL *LOW* (08/22/19 5:45 AM) RDW - CRD [11.6-14.4 %] 14.6 % *HI* (09/05/19 6:25 AM) 14.1 % (08/29/19 5:42 AM) 14.5 % *HI* (08/22/19 5:45 AM) MPV - CRD [8.97-11.96 fL] 9.90 fL (09/05/19 6:25 AM) 11.00 fL (08/29/19 5:42 AM) 9.90 fL (08/22/19 5:45 AM) Platelets - CRD [154-333 x10^3/mcL] 120 x10^3/mcL *LOW* (09/05/19 6:25 AM) 171 x10^3/mcL (08/29/19 5:42 AM) 197 x10^3/mcL (08/22/19 5:45 AM) Imm Granulocyte - CRD 0.7 % (09/05/19 6:25 AM) 0.3 % (08/29/19 5:42 AM) 0.6 % (08/22/19 5:45 AM) Abs Imm Granulocyte - CRD [<=0.05 x10^3/mcL] 0.03 x10^3/mcL (09/05/19 6:25 AM) <0.03 x10^3/mcL (08/29/19 5:42 AM) 0.04 x10^3/mcL (08/22/19 5:45 AM) Abs Lymphocyte - CRD [0.73-2.76 x10^3/mcL] 1.16 x10^3/mcL (09/05/19 6:25 AM) 1.02 x10^3/mcL (08/29/19 5:42 AM) 0.68 x10^3/mcL *LOW* (08/22/19 5:45 AM) Abs Monocyte - CRD [0.30-0.82 x10^3/mcL] 0.40 x10^3/mcL (09/05/19 6:25 AM) 0.50 x10^3/mcL (08/29/19 5:42 AM) 0.54 x10^3/mcL (08/22/19 5:45 AM) Abs Eosinophil - CRD [0.04-0.54 x10^3/mcL] 0.32 x10^3/mcL (09/05/19 6:25 AM) 0.23 x10^3/mcL (08/29/19 5:42 AM) 0.21 x10^3/mcL (08/22/19 5:45 AM) Abs Basophil - CRD [<=0.08 x10^3/mcL] 0.03 x10^3/mcL (09/05/19 6:25 AM) 0.05 x10^3/mcL (08/29/19 5:42 AM) 0.07 x10^3/mcL (08/22/19 5:45 AM) Abs Neut - CRD [1.78-5.38 x10^3/mcL] 2.59 x10^3/mcL (09/05/19 6:25 AM) 1.87 x10^3/mcL (08/29/19 5:42 AM) 4.90 x10^3/mcL (08/22/19 5:45 AM) NRBC - CRD 0.0 (09/05/19 6:25 AM) 0.0 (08/29/19 5:42 AM) 0.0 (08/22/19 5:45 AM) Absolute NRBC - CRD [<=0.01 x10^3/mcL] 0.00 x10^3/mcL (09/05/19 6:25 AM) 0.00 x10^3/mcL (08/29/19 5:42 AM) 0.00 x10^3/mcL (08/22/19 5:45 AM) Auto Neutrophil - CRD 57.1 % (09/05/19 6:25 AM) 50.7 % (08/29/19 5:42 AM) 76.0 % (08/22/19 5:45 AM) Auto Lymphocyte - CRD 25.6 % (09/05/19 6:25 AM) 27.7 % (08/29/19 5:42 AM) 10.6 % (08/22/19 5:45 AM) Auto Monocyte - CRD 8.8 % (09/05/19 6:25 AM) 13.6 % (08/29/19 5:42 AM) 8.4 % (08/22/19 5:45 AM) Auto Eos - CRD 7.1 % (09/05/19 6:25 AM) 6.3 % (08/29/19 5:42 AM) 3.3 % (08/22/19 5:45 AM) Auto Basophil - CRD 0.7 % (09/05/19 6:25 AM) 1.4 % (08/29/19 5:42 AM) 1.1 % (08/22/19 5:45 AM) Glucose POC RALS [74-106 mg/dL] 127 mg/dL 1 *HI* (09/07/19 7:02 AM) 187 mg/dL *HI* (09/06/19 8:45 PM) 147 mg/dL 2 *HI* (09/06/19 4:59 PM) Blood Glucose, Capillary [74-106 mg/dL] 187 mg/dL *HI* (08/26/19 1:09 PM) RDW-SD - CRD 54.4 (09/05/19 6:25 AM) 52.2 (08/29/19 5:42 AM) 52.9 (08/22/19 5:45 AM) Estimated Creatinine Clearance 23.40 mL/min (09/05/19 7:58 AM) 13.22 mL/min (09/04/19 6:04 AM) 13.22 mL/min (08/29/19 8:35 AM) Creatinine Level 2.83 mg/dL (09/05/19 6:25 AM) 5.01 mg/dL (08/29/19 5:42 AM) 4.53 mg/dL (08/22/19 5:45 AM) Sodium - CRD [136-145 mmol/L] 138 mmol/L (09/05/19 6:25 AM) 133 mmol/L *LOW* (08/29/19 5:42 AM) 137 mmol/L (08/22/19 5:45 AM) Potassium - CRD [3.5-5.1 mmol/L] 4.6 mmol/L (09/05/19 6:25 AM) 4.3 mmol/L (08/29/19 5:42 AM) 4.7 mmol/L (08/22/19 5:45 AM) Chloride - CRD [100-109 mmol/L] 102 mmol/L (09/05/19 6:25 AM) 100 mmol/L (08/29/19 5:42 AM) 102 mmol/L (08/22/19 5:45 AM) Carbon Dioxide - CRD [21-32 mmol/L] 30 mmol/L (09/05/19 6:25 AM) 28 mmol/L (08/29/19 5:42 AM) 30 mmol/L (08/22/19 5:45 AM) Anion Gap - CRD [3.0-11.0] 6.0 (09/05/19 6:25 AM) 5.0 (08/29/19 5:42 AM) 5.0 (08/22/19 5:45 AM) Glucose - CRD [70-99 mg/dL] 143 mg/dL 3 *HI* (09/05/19:25 AM) 142 mg/dL 4 *HI* (08/29/19 5:42 AM) 141 mg/dL 5 *HI* (08/22/19 5:45 AM) BUN - CRD [7-22 mg/dL] 23 mg/dL *HI* (09/05/19 6:25 AM) 32 mg/dL *HI* (08/29/19 5:42 AM) 36 mg/dL *HI* (08/22/19 5:45 AM) Creatinine, Enzymatic - CRD [0.67-1.17 mg/dL] 2.83 mg/dL *HI* (09/05/19 6:25 AM) 5.01 mg/dL *CRIT* (08/29/19 5:42 AM) 4.53 mg/dL *HI* (08/22/19 5:45 AM) eGFR Enz Non-AA - CRD [>=60] 23 6 *LOW* (09/05/19 6:25 AM) 12 7 *LOW* (08/29/19 5:42 AM) 13 8 *LOW* (08/22/19 5:45 AM) eGFR Enz AA - CRD [>=60] 28 9 *LOW* (09/05/19 6:25 AM) 14 10 *LOW* (08/29/19 5:42 AM) 16 11 *LOW* (08/22/19 5:45 AM) BUN/Creat Ratio - CRD 8.1 (09/05/19 6:25 AM) 6.4 (08/29/19 5:42 AM) 7.9 (08/22/19 5:45 AM) Calcium - CRD [8.5-10.1 mg/dL] 8.5 mg/dL (09/05/19 6:25 AM) 8.3 mg/dL *LOW* (08/29/19 5:42 AM) 8.5 mg/dL (08/22/19 5:45 AM) Total Protein - CRD [6.4-8.2 G/DL] 7.3 G/DL (09/05/19 6:25 AM) 7.1 G/DL (08/29/19 5:42 AM) 7.1 G/DL (08/22/19 5:45 AM) Alkaline Phosphatase - CRD [45-117 unit/L] 133 unit/L *HI* (09/05/19 6:25 AM) 151 unit/L *HI* (08/29/19 5:42 AM) 146 unit/L *HI* (08/22/19 5:45 AM) ALT - CRD [12-78 unit/L] 36 unit/L (09/05/19 6:25 AM) 35 unit/L (08/29/19 5:42 AM) 18 unit/L (08/22/19 5:45 AM) AST - CRD [0-37 unit/L] 23 unit/L (09/05/19 6:25 AM) 21 unit/L (08/29/19 5:42 AM) 25 unit/L (08/22/19 5:45 AM) Bilirubin, Total - CRD [0.2-1.0 mg/dL] 0.3 mg/dL (09/05/19 6:25 AM) 0.3 mg/dL (08/29/19 5:42 AM) 0.4 mg/dL (08/22/19 5:45 AM) Albumin - CRD [3.4-5.0 G/DL] 3.4 G/DL (09/05/19 6:25 AM) 3.1 G/DL *LOW* (08/29/19 5:42 AM) 3.0 G/DL *LOW* (08/22/19 5:45 AM) Globulin - CRD 3.9 G/DL (09/05/19 6:25 AM) 4.0 G/DL (08/29/19 5:42 AM) 4.1 G/DL (08/22/19 5:45 AM) Albumin/Globulin Ratio - CRD 0.9 (09/05/19 6:25 AM) 0.8 (08/29/19 5:42 AM) 0.7 (08/22/19 5:45 AM) 1Result Comment: P 2Result Comment: P 3Result Comment: Impairment: Fasting glucose 100-125 mg/dL Diabetes Mellitus: Fasting glucose >=126 mg/dL Random glucose >=200 mg/dL 4Result Comment: Impairment: Fasting glucose 100-125 mg/dL Diabetes Mellitus: Fasting glucose >=126 mg/dL Random glucose >=200 mg/dL 5Result Comment: Impairment: Fasting glucose 100-125 mg/dL Diabetes Mellitus: Fasting glucose >=126 mg/dL Random glucose >=200 mg/dL 6Result Comment: Reference range: >60 mL/min/1.73m2 Any value below 60 is considered abnormal and is a strong indicator of a stage of Chronic Kidney Disease. Calculation assumes steady state. Calculated result is dependent upon accurate patient demographics. Calculation has not been validated in women and the elderly. Interpret results for inpatients and patients >65 yrs with caution. 7Result Comment: Reference range: >60 mL/min/1.73m2 Any value below 60 is considered abnormal and is a strong indicator of a stage of Chronic Kidney Disease. Calculation assumes steady state. Calculated result is dependent upon accurate patient demographics. Calculation has not been validated in women and the elderly. Interpret results for inpatients and patients >65 yrs with caution. 8Result Comment: Reference range: >60 mL/min/1.73m2 Any value below 60 is considered abnormal and is a strong indicator of a stage of Chronic Kidney Disease. Calculation assumes steady state. Calculated result is dependent upon accurate patient demographics. Calculation has not been validated in women and the elderly. Interpret results for inpatients and patients >65 yrs with caution. 9Result Comment: Reference range: >60 mL/min/1.73m2 Any value below 60 is considered abnormal and is a strong indicator of a stage of Chronic Kidney Disease. Calculation assumes steady state. Calculated result is dependent upon accurate patient demographics. Calculation has not been validated in women and the elderly. Interpret results for inpatients and patients >65 yrs with caution. 10Result Comment: Reference range: >60 mL/min/1.73m2 Any value below 60 is considered abnormal and is a strong indicator of a stage of Chronic Kidney Disease. Calculation assumes steady state. Calculated result is dependent upon accurate patient demographics. Calculation has not been validated in women and the elderly. Interpret results for inpatients and patients >65 yrs with caution. 11Result Comment: Reference range: >60 mL/min/1.73m2 Any value below 60 is considered abnormal and is a strong indicator of a stage of Chronic Kidney Disease. Calculation assumes steady state. Calculated result is dependent upon accurate patient demographics. Calculation has not been validated in women and the elderly. Interpret results for inpatients and patients >65 yrs with caution. Vital Signs Most recent to oldest [Reference Range]: 1 2 3 Temperature Oral F [96.4-99.1 DegF] 97.5 DegF (09/07/19 5:00 AM) 97.5 DegF (09/06/19 8:05 AM) 97.2 DegF (09/05/19 5:41 PM) Temperature Temporal 98 DegF (09/03/19 5:10 AM) Peripheral Pulse Rate [60-100 bpm] 101 bpm *HI* (09/07/19 9:05 AM) 90 bpm (09/06/19 8:05 AM) 96 bpm (09/05/19 8:00 PM) Respiratory Rate [14-20 br/min] 17 br/min (09/07/19 9:05 AM) 18 br/min (09/06/19 8:05 AM) 18 br/min (09/05/19 8:00 PM) Blood Pressure [90-140/60-90 mmHg] 140/78mmHg (09/07/19 9:05 AM) 151/92mmHg *HI* (09/06/19 8:05 AM) Systolic Blood Pressure [90-140 mmHg] 167 mmHg *HI* (09/05/19 8:00 PM) Diastolic Blood Pressure [60-90 mmHg] 82 mmHg (09/05/19 8:00 PM) Mean Arterial Pressure, Cuff 93 mmHg (08/17/19 2:15 PM) 92 mmHg (08/17/19 7:20 AM) Extremity used to obtain blood pressure Right Arm (09/07/19 9:05 AM) Right Arm (09/05/19 8:00 PM) Right Arm (09/05/19 3:59 PM) Cuff Size. Small (09/07/19 9:05 AM) Small (09/05/19 8:00 PM) Medium (09/05/19 3:59 PM) Diastolic Blood Pressure with Activity [60-90 mmHg] 79 mmHg (09/03/19 8:30 AM) 74 mmHg (08/31/19 1:00 PM) 73 mmHg (08/24/19 9:00 AM) Peripheral Pulse Rate with Activity 104 bpm (09/03/19 8:30 AM) 129 bpm (08/31/19 1:00 PM) 95 bpm (08/24/19 9:00 AM) Systolic Blood Pressure with Activity [90-140 mmHg] 122 mmHg (09/03/19 8:30 AM) 130 mmHg (08/31/19 1:00 PM) 119 mmHg (08/24/19 9:00 AM) Vital Signs Additional Information done in sitting, standing with rw bp 108/77 with slight c/o lightheadedness knee high acewrapping for bp support (08/29/19 1:00 PM) RA , added thigh high apryl wraps and ab binder for standing at rw (08/28/19 1:00 PM) taken in sitting at the end of treatment, knee high teds on (08/24/19 9:30 AM) Vital Signs w/ Activity Additional Info after ambulation 150 ft, took in standing no apryl wraps on le with standing ther ex- 118/79 HR 108 (09/03/19 8:30 AM) 142/81 hr126 in sitting after supine ex 120/72 hr 126 in standing with rw with acewrapping lower legs for bp support, (08/29/19 1:00 PM) first tial standing, then 108/58 HR 95, with standing with marching, again stand with june 106/64 HR 95, last stand tolerance BP 111/69 HR 95 (08/24/19 9:00 AM) Peripheral Pulse Rate Post 117 (09/06/19 2:00 PM) 95 (08/24/19 9:00 AM) 101 (08/17/19 7:30 AM) Systolic Blood Pressure Post 150 (09/06/19 2:00 PM) 116 (08/24/19 9:00 AM) 110 (08/22/19 1:00 PM) Diastolic Blood Pressure Post 90 (09/06/19 2:00 PM) 74 (08/24/19 9:00 AM) 73 (08/22/19 1:00 PM) SpO2 Post 99 (08/24/19 10:30 AM) 97 (08/24/19 9:00 AM) 94 (08/17/19 7:30 AM) Oxygen Therapy Post Nasal cannula (08/24/19 10:30 AM) Nasal cannula (08/24/19 9:00 AM) Nasal cannula (08/17/19 7:30 AM) Oxygen Flow Rate Post 1 (08/24/19 10:30 AM) 1 (08/24/19 9:00 AM) 1 (08/17/19 7:30 AM) Vital Signs Additional Information Post after supine ex in sitting with teds and ab binder taken in standing 117/70 115 (09/06/19 2:00 PM) .5 L nc /c seated activity 98%, reported to RT (08/24/19 10:30 AM) after standing with c/o dizziness (08/22/19 1:00 PM) Temperature Oral [35.8-37.3 DegC] 36.4 DegC (09/07/19 5:00 AM) 36.4 DegC (09/06/19 8:05 AM) Temperature Oral 36.8 DegC 1 (09/05/19 3:59 PM) 1Result Comment: Charted by SYSTEM secondary to charting of Temperature Oral F in [employer]. Rule: [id number]_CALCULATIONS
--- OUTSIDE RECORDS SUMMARY | 2023-12-28 16:42 | XMS_ITS | Encounter Summary ---
Author Organization [facility] Address [address] [place] [address] Care Team Providers Care Hall Manager Name Role Phone Sanjay Jarad Keller DNP Primary Care Provider [phone] Encounter Details Date Type Department Care Team (Late st Contact Info) Description 10/12/2018 Results Only Imaging [facility] [phone] Unknown, Provider, Social History Tobacco Use Types Packs/Day Years Used Date Smoking Tobacco: Former Cigarettes Smokeless Tobacco: Never Alcohol Use Standard Drinks/Week Comments No 0 (1 standard drink = 0.6 oz pur e alcohol) AUDIT-C Answer Date Recorded Frequency of Alcohol Consumption Never 10/12/2018 Average Number of Drinks Not on file 019 Frequency of Binge Drinking Not on file 09/30 Sex and Gender Information Value Date Recorded [...] as of this encounter Plan of Treatment Pending Results Name Type Priority Associated Diagnoses Date /Time OUTSIDE IMAGES - OTHER CHEST Imaging 10/12/2018 7:38 EDT documented as of this encounter Visit Diagnoses Not on filedocumented in this encounter Care Teams Hall Manager Relationship Specialty Start Date End Date Jarad Iglesias, [facility] [place] [address] PCP - General 10/12/18 documented as of this encounter
--- OUTSIDE RECORDS SUMMARY | 2023-12-28 16:42 | XMS_ITS | Encounter Summary ---
Author Organization [facility] Address [address] [place] [address] Care Team Providers Care Ecological Modeler Name Role Phone Sanjay AriannaJarad barrientos Maeve DNP Primary Care Provider [phone] Reason for Visit * Reason Onset Date Comments Discuss Possible Transfer 10/12/2018 Encounter Details Date Type Department Care Team (Late st Contact Info) Description 10/12/2018 Telephone [facility] MED [address] [place] [address], [place] [address] Xiomara Mccauley MD [address] [place] [phone] Discuss Possible Transfer Social History Tobacco Use Types Packs/Day Years [...] No 10/12/2018 documented as of this encounter Miscellaneous Notes * Telephone Encounter - Xiomara Mccauley MD - 10/12/2018 0710 EDT Telephone call from Dr. Chávez at [facility] via [facility] regarding possible transfer. Patient is 58 yo with ESRD on dialysis /. After dialysis on Tuesday, he began to feel progressive weak and fatigued. Overnight he developed fever, chills, left leg pain and redness (chronic swelling on that side due to vein harvesting for CABG). On presentation to ED T was 101.1, BP 150/90, HR 125. Satting 90% on room air. Slight crackles left lung base. Redness/induration of left pretibialregion and thigh which has progressed to groin region (not affecting scrotum or perineum). No subcutaneous crepitus. No white count. Lactate 2.1. Blood cultures pending. Received 500 cc LR and 1500 mg vancomycin. He has defervesced, HR down to 105 and BP is stable. CXR was negative for acute infectious process. He produces urine and had a Farrell catheter placed for retention. No beds available at [facility]. Accepted patient for emergent transfer to medicine bed with telemetry given rapidly progressive cellulitis and associated sepsis. Xiomara Mccauley MD documented in this encounter Plan of Treatment Not on file documented as of this encounter Visit Diagnoses Not on filedocumented in this encounter Care Teams Ecological Modeler Relationship Specialty Start Date End Date Jarad Iglesias, [facility] [address] PCP - General 10/12/18 documented as of this encounter
--- OUTSIDE RECORDS SUMMARY | 2023-12-28 16:42 | XMS_ITS | Encounter Summary ---
Author Organization [facility] Address [address] [place] [address] Care Team Providers Care Seaman Name Role Phone Sanjay AriannaJarad barrientos Maeve DNP Primary Care Provider [phone] Encounter Details Date Type Department Care Team (Latest Contact Info) Description 01/22/2019 12:15 EDT - 01/22/2019 23:59 EDT Hospital Encounter [address] [address] Unknown, Provider, Discharge Disposition: Home or Self Care Social History Tobacco Use Types Packs/Day Years [...] No 10/12/2018 documented as of this encounter Medications at Time of Discharge Medication Sig Dispensed Refills Start Date End Date aspirin 325 mg tablet Take 325 mg by mouth daily. bumetanide (BUMEX) 2 mg tablet Take 2 mg by mouth 2 times daily. calcitRIOL (ROCALTROL) 0.25 mcg capsule Take 0.75 mcg by mouth every , , Tue (Dialysis). epoetin beta, methoxy peg (MIRCERA) 50 mcg/0.3 mL syringe Inject 50 mcg into the vein every Tuesday (Dialysis). gabapentin (NEURONTIN) 300 mg capsule Take 300 mg by mouth 3 times daily. INSULIN ASPART U-100 SUBQ Inject 76 Units into the skin daily. Patient self-administers via V-Go pump. iron sucrose (VENOFER) 100 mg iron/5 mL injection Inject 50 mg into the vein every Tuesday (Dialysis). lidocaine-prilocaine (EMLA) cream Apply topically every , , Tue (Dialysis). Apply to fistula site. losartan (COZAAR) 50 mg tablet Take 50 mg by mouth daily. multivitamin (NEPHROVITE) 0.8 mg tablet Take 1 Tab by mouth at bedtime. 10/14/2018 mv,[id number]-epa -fish (PRORENAL QD) 400-500 mcg-unit capsule Take 1 Capsule by mouth daily. Prorenal QD multivitamin. pravastatin (PRAVACHOL) 40 mg tablet Take 40 mg by mouth daily. sertraline (ZOLOFT) 25 mg tabletIndications:major depressive disorder Take 2 Tabs by mouth daily. 10/14/2018 tamsulosin (FLOMAX) 0.4 mg capsule Take 0.4 mg by mouth daily. documented as of this encounter Discharge Disposition Disposition Code Departure Means Destination Home or Self Alf documented in this encounter Plan of Treatment Not on file documented as of this encounter Visit Diagnoses Not on filedocumented in this encounter Care Teams Seaman Relationship Specialty Start Date End Date Jarad Iglesias, [address] [place] [address] PCP - General 10/12/18 documented as of this encounter
--- OUTSIDE RECORDS SUMMARY | 2023-12-28 16:42 | XMS_ITS | Encounter Summary ---
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 worsening fevers, chills and left lower extremity pain and swelling. Plan Left lower extremity cellulitis: Afebrile and hemodynamically stable. Improved with vancomycin. Hasnot had dialysis since then likely still has vancomycin and circulation. -hold vancomycin at this time, received this morning 10/12, will give tomorrow -elevate LLE -daily CBC -follow up cultures from [facility] -tylenol q8hrs prn End-stage renal disease on dialysis: Patient appears relatively euvolemic, will pursue dialysis tomorrow 10/13/2018 -will be dialyzed tomorrow 10/13/2018w -bumex 2mg BID - electrolytes QD Hyperlipidemia/CAD -Pravastatin 40 mg nightly Hypertension -Continue losartan 50 mg daily Type 2 diabetes w/neuropathy -SSI -FSGS TID WC -gabapentin 300mg QHS Urinary retention: - continue tamsulosin 0.4 mg daily - pull mcduffie Depression sertraline 25mg QD VTE Prophylaxis Pharmacologic Prophylaxis: Heparin 5000 units SQ Bid Code: FULL Discharge Plan Home or self care Consults None Admission Status Observation. Anticipated duration of hospitalization is less than two midnights. Shaji Younger MD 10/12/2018 14:38 I interviewed and examined patient. I agree with findings and plan of care documented by resident. Eliot Muse MD documented in this encounter Procedure Notes * Narinder Olson MD, MD - 10/14/2018 1430 EDT ADMISSION/DISCHARGE STATUS ADMISSION DISCHARGE Arrival time: n/a Order verified by: SABAS GUAN MD R Departure time: 14-oct-18 151 Treatment Time On: 647 Primary Caregiver: n/a Treatment Time Off: 1053 Staff On: LISA MCCARTHY RN Responsible Caregiver: n/a Staff Off: LISA MCCARTHY RN BP Sittin/ 70 BP Sittin/ 76 BP Standin/ 49 BP Standin/ 60 Pulse: 79 Session Type: n/a Pulse: 86 Temperature: 36.8 Dialysis Process: Hemodialysis Temperature: 36.5 Gain/Loss: 1.1 Gain/Loss: -2.4 Comments: ACCESS/connections;taped,secured,vi Comments: NO CO'S PAIN, PATIENT STABLE sible, ACCESS; Site washed , BLOODLINES secured/taped, CBC drawn Admission Assessment: 14-oct-2018 0712 LISA MCCARTHY RN ^-- HEPATITIS SCREENING COMPLETE & RECORDED: Y Acute RN Pt Assessment 58 y/o male here for HD today. Inpt came via w/c; able to transfer to scale and bed without assist.Hopes to be discharged today. Patient's Code Status: y Have you had any recent falls? NO Fall Assessment: Using the Get up and Go (Heindrich Assessment) the patient scores: 1=Pt pushes up, successful in one attempt Pain Assessment: Using the Numerical Pain Assessment Scale (1/10) the patient scores: 0 If pain present, document intervention & reassess after 2 hours. Medication Reconcili Per MAR Access Assessment: access visualized; bloodline connections taped; bloodlines secured to patient's body/clothes; access visible Vascular Access used today is: FISTULA S/s infection: NO Bruit: WNL Thrill: PRESENT Function: WNL it network administrator access plan: maintain fistula. Labs: What labs were drawn & why it was drawn: CBC via EPIC Fluid assessment: Lung sounds: clear; generalized edema; low goal- was dialyzed yesterday. Transplant/Modality Status: Patient Education: pt agrees with dialysis plan. Discharge Assessment: 14-oct-2018 1513 LISA MCCARTHY RN 2500 net removed; stable run. Ate sm amt bkfst. Able to transfer to scale and w/c without assist. Report called to RN on B4. Report called to dialysis unit in [facility]. ACCESS ADMISSION DISCHARGE Access Type: Natural AV Fistula Hemostatis Time Art. (min): 10 Access Location: Left forearm Bolus Heparin (units): 1900 Hemostatis Time Vein (min): 10 Needle Gauge: #15 gauge 1 Hourly Heparin (units): 700 Heparin Off Time (min): 60 Condition: n/a DIALYSIS DEL Date/Time On: 14-oct-18 0648 Date/Time Off: 14-oct-18 1053 Caregiver: LISA MCCARTHY RN Caregiver: LISA MCCARTHY RN Target KT/V: n/a Target PRU: n/a Target BV (l): 96 Total Duration (min): 245 FLUID REMOVAL DIALYSATE PROFILES EQUIPMENT Post Wt last run (kg): 103.1 Flow (ml/min): 600 n/a Location: [place] Weight (kg): 103.0 Na (mmol/l): 139 n/a Machine #: [id number] Target Weight (kg): 103.0 K (mmol/l): 3.0 Conductivity: Yes Current Weight (kg): 104.2 Ca (mmol/l): 2.50 pH: 7.5 Fluids Oral (kg): 0 Mg (mmol/l): 1.00 Test: Yes Weight Change (kg): 1.1 Glucose (mmlo/l): 100.00 Excess Weight (kg): 1.2 Bicarb (mmol/l): 35.0 n/a Dialyzer: OPTIFLUX 200NR Post Weight (kg): 101.8 UFR (kg/hr): n/a Blood Flow (ml/min): 400 Processed Fluid (l): 75.0 BTM Function: n/a Post Dialyzer Rating: n/a Fluid Removed (l): 3.0 DIALYSIS LOG Time BP Pulse [employer]IST AP Blood Dial. Temp UFR UF TMP Cond BVP Auth Ack Ack Auth [id number] 88/ 49 76 164 -30 275 600 36.6 0.37 0.01 92 14.0 0.4 cyberDAX 0652 SHARI, LISA GIMENEZ 0714 113/77 90 158 -73 315 600 36.4 0.37 0.17 97 14.0 8.3 cyberDAX 0726 SHARI, LISA RN 0729 107/76 86 150 -81 315 600 36.5 0.52 0.28 102 14.0 13.0 cyberDAX 0912 SHARI, LISA GIMENEZ 0749 125/76 86 154 -91 315 600 36.6 0.52 0.46 98 13.5 19.1 cyberDAX 0912 SHARI, LISA GIMENEZ 0825 / 157 -103 315 600 36.4 0.52 0.76 101 14.9 29.8 cyberDAX/2 0912 SHARI, LISA RN 0849 119/78 84 159 -104 315 600 36.5 0.60 1.01 99 14.0 37.4 cyberDAX 0912 LISA MCCARTHY RN 0909 124/71 92 159 -111 315 600 36.4 0.60 1.21 95 15.4 43.5 cyberDAX 0912 SHARI, LISA GIMENEZ 0929 125/75 81 157 -103 315 600 36.5 0.78 1.46 102 14.0 49.5 cyberDAX 1014 LISA MCCARTHY 0949 121/72 87 150 -103 315 600 36.4 1.14 1.84 113 15.4 55.6 cyberDAX 1014 LISA MCCARTHY RN 1009 122/75 87 154 -111 315 600 36.5 1.14 2.22 115 14.0 61.6 cyberDAX 1014 LISA MCCARTHY RN 1029 150/99 92 169 -136 350 600 36.4 1.14 2.60 113 15.4 68.1 cyberDAX 1114 ROCIO FAZAL PERNELL 1049 123/70 87 83 21 0 600 36.7 0.30 2.99 105 13.5 74.8 cyberDAX 1114 FAZAL CHAN RN 1053 / 55 43 0 600 36.3 0.30 3.00 134 14.1 75.0 cyberDAX 1114 FAZAL CHAN RN AVERAGES 314 600 36.5 0.64 105 MEDICATION LOG Time Medication/Form Dosage Units Route Freq. IV soln Comments Caregiver INCIDENTS Time Complication Caregiver ORDER PARAMETER CHANGES Time Parameter Old Value New Value Caregiver Reason For Change I interviewed and examined the patient during dialysis. He had no major complaints. The treatment was uneventful and we removed approximately 3 L. He will be discharged to be treated at for sending us dialysis in [facility]. Nursing made a continuity call to that dialysis unit to assure that he receives his full course of antibiotics. Narinder Olson MD 10/14/2018 15:28 * Giovana Church RN - 10/13/2018 1132 EDTProcedure(s): HEMODIALYSIS ADMISSION/DISCHARGE STATUS ADMISSION DISCHARGE Arrival time: n/a Order verified by: DANNY STORM NP Departure time: n/a Treatment Time On: 0642 Primary Caregiver: n/a Treatment Time Off: 1044 Staff On: GIOVANA CHURCH RN Responsible Caregiver: n/a Staff Off: n/a BP Sittin/ 71 BP Sittin/ 74 BP Standin/ 71 BP Standin/ 69 Pulse: 84 Session Type: n/a Pulse: 90 Temperature: 36.0 Dialysis Process: Hemodialysis Temperature: n/a Gain/Loss: Gain/Loss: Comments: ACCESS/connections;taped,secured,vi Comments: n/a sible, ACCESS; Site washed , CRIT-LINE in use, Generalized edema, Oxygen in use, SOB on excertion, Thrill/Bruit noted, diminished LS bases, good flows Admission Assessment: 13-oct-2018 0747 GIOVANA CHURCH RN ^-- HEPATITIS SCREENING COMPLETE & RECORDED: Acute RN Pt Assessment:Maurice Rudolph is a 58 y.o. male with a PMHx of coronary artery disease status post CABG 2014, end-stage renal disease on dialysis, GERD hypertension, type 2 diabetes on insulin who presents with 3 days of worsening fevers, chills and left lower extremity pain and swelling. He reports being in his usual state of health until 2 days ago when he developed sudden onset distal left lower extremity pain. He does not report any trauma, skin tears, abrasions to thearea the last couple of days. He reports the rash and pain initially began to to ascend his leg at which point he began to develop fevers and chills. He subsequently sought care at [facility], reportedly on presentation to have a fever of 101.1F and was hemodynamically stable. He had a minor lactate elevation at 2.1, and received half a liter of lactated Ringer's and 1.5 g of vancomycin. Initial exam was not concerning for a necrotizing soft tissue infection and he was transferred to [facility] for further evaluation. ?? On interview he reports the swelling and pain in his left leg is ongoing however much improved. He denies any further fevers or chills. He is largely without complaint at this time. He does not have any history of cellulitis. He does note several ye urinary retention with intermittent Mcduffie catheter usage. Of note he is currently being evaluated for a kidney transplant at [facility]. Does report producing a small amount of urine each day. arrived from floor. aox2. mild redness and edema to left leg. generalized edema. states hasnt eatenmuch over past few days. probably has lost actual weight. lungs diminished and has occasional productive clearing of throat per pt, not a cough. this is new he states. Patient's Code Status:full Have you had any recent falls? NO Fall Assessment: Using the Get up and Go (Heindrich Assessment) the patient scores: 4=Pt unable to rise w/o assist or pt. is to remain in bed per medical order Pain Assessment: Using the Numerical Pain Assessment Scale (1/10) the patient scores:left leg at times Medication Reconciliation: Per MAR Access Assessment: access visualized; bloodline connections taped; bloodlines secured to patient's body/clothes; access visible Vascular Access used today is:left arm FISTULA S/s infection: NO Bruit: WNL Thrill: PRESENT Function: WNL jail access plan: remain patent and infection free Labs: per epic Fluid assessm pt up .5kg from tw but has lost actual weight from nbt eating. edema lower extremiteis. will attempt 2000cc net if critline and pt tolerant.o2 on .hypotensive at start. Transplant/Modality Status:working with [facility] on transplant. Patient Education:todays treatment plan and reportable concerns Discharge Assessment: ACCESS ADMISSION DISCHARGE Access Type: Natural AV Fistula Hemostatis Time Art. (min): n/a Access Location: Left forearm Bolus Heparin (units): 1900 Hemostatis Time Vein (min): n/a Needle Gauge: #15 gauge 1 Hourly Heparin (units): 700 Heparin Off Time (min): 60 Condition: n/a DIALYSIS DELIVERED Date/Time On: 13-oct-18 0642 Date/Time Off: 13-oct-18 1044 Caregiver: GIOVANA CHURCH RN Caregiver: n/a Target KT/V: n/a Target PRU: n/a Target BV (l): 84 Total Duration (min): 242 FLUID REMOVAL DIALYSATE PROFILES EQUIPMENT Post Wt last run (kg): n/a Flow (ml/min): 700 n/a Location: [place] Weight (kg): 104.0 Na (mmol/l): 140 n/a Machine #: [id number] Target Weight (kg): 102.0 K (mmol/l): 2.0 Conductivity: Yes Current Weight (kg): 104.5 Ca (mmol/l): 2.50 pH: 7.5 Fluids Oral (kg): 0 Mg (mmol/l): 1.00 Test: Yes Weight Change (kg): Glucose (mmlo/l): 100.00 Excess Weight (kg): 0.5 Bicarb (mmol/l): 35.0 n/a Dialyzer: OPTIFLUX 200NR Post Weight (kg): n/a UFR (kg/hr): n/a Blood Flow (ml/min): 350 Processed Fluid (l): 80.2 BTM Function: n/a Post Dialyzer Rating: n/a Fluid Removed (l): DIALYSIS LOG Time BP Pulse [employer] HEALTH [employer]IST AP Blood Dial. Temp UFR UF TMP Cond BVP Auth Ack Ack Auth [id number] 124/71 84 51 -17 200 700 36.5 0.75 0.01 79 14.0 0.3 cyberDAX 0649 GIOVANA CHURCH RN 0711 109/68 88 107 -104 350 700 36.5 0.75 0.38 97 14.0 10.2 cyberDAX 0747 RANJIT, GIOVANAMAGO Rawls RN 0741 89/ 53 90 124 -114 350 700 36.4 0.75 0.76 96 15.4 19.9 cyberDAX 0747 RANJIT, GIOVANAMAGO Rawls RN 0811 84/ 60 87 116 -136 350 700 36.5 0.25 0.89 84 14.0 29.9 cyberDAX 0822 RANJIT, GIOVANAMAGO Rawls RN 0841 112/69 86 113 -123 350 700 36.5 0.25 1.01 85 13.9 39.9 cyberDAX 0904 RANJIT, GIOVANAMAGO Rawls RN 0911 112/73 87 120 -121 350 700 36.5 0.51 1.24 91 14.1 49.9 cyberDAX 0931 RANJIT GIOVANAMAGO Rawls RN 0941 / 119 -135 350 700 36.5 0.51 1.48 87 14.0 59.7 cyberDAX/2 0945 RANJIT GIOVANAMAGO Rawls RN 0941 107/64 86 118 -140 350 700 36.4 0.51 1.49 92 15.2 59.9 cyberDAX 0945 RANJIT, GIOVANAMAGO Rawls RN 1011 / 129 -136 350 700 36.5 0.51 1.74 86 14.0 69.5 cyberDAX/2 1013 RANJIT GIOVANAMAGO Rawls RN 1011 116/80 87 123 -130 350 700 36.5 0.51 1.75 91 14.0 69.9 cyberDAX 1013 RANJIT GIOVANAMAGO Rawls RN 1040 / 124 -132 350 700 36.4 0.51 1.99 94 14.0 79.3 cyberDAX/2 CHURCH GIOVANAMAGO Rawls RN 1041 120/67 89 124 -130 350 700 36.4 0.30 2.00 91 14.1 79.8 cyberDAX RANJIT GIOVANAMAGO Rawls RN 1044 / -9 -8 0 700 36.5 0.30 2.01 55 14.1 80.2 abrahamDAX RANJIT GIOVANAMAGO Rawls RN AVERAGES n/a n/a n/a n/a n/a MEDICATION LOG Time Medication/Form Dosage Units Route Freq. IV soln Comments Caregiver INC Time Complication Caregiver ORDER PARAMETER CHANGES Time Parameter Old Value New Value Caregiver Reason For Change 0649 Target Weight 104.000 kg 102.000 kg GIOVANA CHURCH RN No reason for change given Associated attestation - Sabas Guan MD - 10/13/2018 1916 EDT Attending Attestation: I have seen and examined Maurice during his HD session today. He is an ESRD patient who has hemodialysis on a Tuesday, , Tuesday schedule and had been on dialysis for 3 years at [place]. He got admitted with left lower extremity cellulitis and is currently on IV cefazolin. His end-stage kidney disease is secondary to type 2 diabetes mellitus and its complications. He underwent hemodialysis through his left forearm AV fistula for 4 hours uneventfully. His blood pressures have been low at times during his treatment session. He denied any specific symptoms duringdialysis but has constipation for the past 3 days. Physical examination revealed abdominal distention, an insulin pump on his abdomen, no edema in his extremities and clear chest. He is due for his next session tomorrow. aSbas Guan MD Nephrology. documented in this encounter Miscellaneous Notes * Plan of Care - Will Parisi RN - 10/14/2018 0407 EDT Problem: Daily Care Plan Goals Goal: Care Plan Documentation Outcome: Ongoing 10/13/181916 Care Plan Focus Area of Focus Respiratory Goal This Shift O2 will remain above 92% Data: Pt is AOx3, able to make needs known, c/o 6/10 pain below his left knee, cellulitis-redness over LLE. ESRD-Dialysis patient (//tue) with AV fistula over left arm with +bruit/+thrill. Pt continues to have occasional drop in oxygen down to 79%. Blood pressure (!) 144/67, pulse 89, temperature 36.9 ??C (98.4 ??F), temperature source Tympanic, resp. rate 14, SpO2 99 %-2L. Action: Administered scheduled medication. Bladder scan showed 386cc- pt able to clear out bladder w/o straight cath. Urine output of 360cc right after bladder scan. Response: Pt sleeping comfortably at this time, Afebrile. pt at 97-99% on 2L O2 NC. Call light within reach. Will Parisi RN 10/14/2018 3:57 * Plan of Care - Omayra Parson RN - 10/13/2018 1736 EDT Problem: Daily Care Plan Goals Goal: Care Plan Documentation Outcome: Met This Shift 10/13/18 1000 Care Plan Focus Area of Focus GI//Elimination Goal This Shift Pt will void this shift Data: Pt admitted with cellulitis to LLE. A&Ox3. ESRD on chronic dialysis, off unit for dialysis this AM. Mcduffie removed yesterday at 1400 with no void through this AM. Bladder scan preformed at 1130 when returned from dialysis 79mL. Pt had several episodes of de-satting into high-low 80s at times throughout shift. Action: Pt encouraged to void throughout shift even if he does not feel the urge. O2 administered via NC at 2L intermittently for decreased O2 sat. Pt ambulated in hallway CG with walker on room air and maintained O2 sat in high 80s. Pt not in any respiratory distress. MD notified of decreased O2 sats. PT eval ordered as pt does not use walker at home and reports difficulty with stairs in his home. Response: Pt able to void this afternoon around 1600, PVR bladder scan 71ml. Pt maintaining O2 satsin 90s with 2L O2 via NC. PRN miralax administered this afternoon r/t pt reports of no BM x3 days, miralax with positive results. Will CTM O2 sats and attempt to wean to room air. OMAYRA PARSON RN 10/13/2018 17:28 * Plan of Care - Elena Castano - 10/13/2018 1404 EDT 10/13/18 1300 Observation Notification: Notification of outpatient observation services Patient received notification verbally and in writing while in hospital. Obs letter complete? Yes Elena Jiménez Resource Associate Case Management - Social Pager: #[phone] * Plan of Care - Will Parisi RN - 10/13/2018 4559 EDT Problem: Daily Care Plan Goals Goal: Care Plan Documentation Outcome: Completed Date Met: 10/13/18 10/12/18 2300 Care Plan Focus Area of Focus GI//Elimination Goal This Shift pt will urinate this shift Data: Assumed care at 2300, pt is AOx3, able to make needs known, no c/o pain. LLE redness and swelling (cellulitis)- elevated. AV fistula with +bruit &thrill. Occasional drop in SpO2 to low 80s on room air while asleep. No c/o pain, chest pain, n/v. Pt hasn't voided since mcduffie removal. Blood pressure 132/60, pulse 89, temperature 36.6 ??C (97.9 ??F), temperature source Tympanic, resp. rate 16, height 162.6 cm (64), SpO2 92 %. Action: MD Gray Lopez notified of the following: Pt placed on 1L O2- saturation at in mid 90s. 2am bladder scan with 461cc. Straight cath'd pt per order with 400cc output. Per MD no mcduffie needed. Response: Pt currently sleeping, call light within reach. Hourly checks continued. Will Parisi RN 10/13/2018 4:36 * Plan of Care - Tiara Bergman RN - 10/12/2018 3257 EDT Problem: Daily Care Plan Goals Goal: Care Plan Documentation Outcome: Ongoing 10/12/18 1500 Care Plan Focus Area of Focus GI//Elimination Goal This Shift pt will void before 8 pm this shift Data: Admitted for left lower leg pain, swelling. AO*3, able to make needs known, ESRD pt, H/D on Tues/Thurs/Sat, left AV fistula thrill (+), bruit (+), left fingers CTMS(+), warm. Pt didn't have H/Dtoday. Mcduffie removed at 2 pm. Due to void at 10pm. At 10pm, no urine output, bladder soft. Action: Bladder scan: 266ml, notified sergeant of corrections MD. Response: sergeant of corrections MD aware, will recheck at 2am. Pt denied nausea/vomit/SOB/chest pain, sleeping inbed. TIARA BERGMAN RN 10/12/2018 22:42 documented in this encounter Plan of Treatment Scheduled Referrals Name Type Priority Associated Diagnoses Orde r Schedule AMB CONS/FOLLOW UP PRIMARY CARE PHYSICIAN Outpatient Referral Routine Cellulitis of left lower extremity Ordered: 10/14/2018 documented as of this encounter Procedures Procedure Name Priority Date/Time Associated Diagnosis Comments COMPLETE BLOOD COUNT Routine 10/14/2018 7:13 EDT GLUCOSE, GLUCOMETER Routine 10/14/2018 6 :56 EDT GLUCOSE, GLUCOMETER Routine 10/13/2018 2 3:59 EDT GLUCOSE, GLUCOMETER Routine 10/13/2018 2 1:27 EDT GLUCOSE, GLUCOMETER Routine 10/13/2018 1 6:04 EDT GLUCOSE, GLUCOMETER Routine 10/13/2018 7 :33 EDT PROTIME Routine 10/13/2018 6:00 EDT COMPLETE BLOOD COUNT Routine 10/13/2018 6:00 EDT ELECTROLYTES Routine 10/13/2018 6:00 EDT GLUCOSE, GLUCOMETER Routine 10/12/2018 2 0:10 EDT GLUCOSE, GLUCOMETER Routine 10/12/2018 1 8:34 EDT GLUCOSE, GLUCOMETER Routine 10/12/2018 1 4:10 EDT PROTIME Routine 10/12/2018 14:06 EDT COMPLETE BLOOD COUNT Routine 10/12/2018 14:06 EDT HEMOGLOBIN A1C Routine 10/12/2018 14:06 EDT ELECTROLYTES Routine 10/12/2018 14:06 EDT documented in this encounter Results * (ABNORMAL) COMPLETE BLOOD COUNT (10/14/2018 7:13 EDT) WBC 7.15 4.0 - 10.4 K/cmm 10/14/2018 7:44 [facility] RBC 3.10(L) 4.36 - 5.78 M/cmm 10/14/2018 7:44 [facility] Hemoglobin 10.2(L) 13.8 - 17.3 gm/dl 10/14/2018 7:44 [facility] HCT 30.0(L) 39.5 - 50.2 % 10/14/2018 7:44 [facility] MCV 97(H) 81 - 95 fl 10/14/2018 7:44 [facility] MCH 32.9 27.6 - 33.0 pg 10/14/2018 7:44 [facility] MCHC 34.0 32.8 - 36.4 gm/dl 10/14/2018 7:44 [facility] RDW-CV 14.4(H) <14.2 % 10/14/2018 7:44 [facility] RDW-SD 50.3(H) <46.0 fl 10/14/2018 7:44 [facility] PLT 145 141 - 377 K/cmm 10/14/2018 7:44 [facility] MPV 11.0 9.5 - 12.7 fl 10/14/2018 7:44 [facility] Blood specimen (specimen) BLOOD SPECIMEN / Unknown 10/14/2018 7:13 EDT 10/14/2018 7:33 EDT Shaji Younger MD HEMATOLOGY & PF4 ORD ERABLES Performing Organization Address City/[facility]/ZIP Co de Phone Number [facility] [address] [place] [address] * (ABNORMAL) GLUCOSE, GLUCOMETER (10/14/2018 6:56 EDT) Glucose, Fingerstick 223(H) 70 - 100 mg/dl 10/14/2018 6:[address] [facility] Public Relations Sales Marketing ID [id number] 10/14/2018 6:[address] [facility] Comment:Test Per[facility] BLOOD SPECIMEN / Unknown 10/14/2018 6:56 EDT 10/14/2018 6:58 EDT Xiomara Mccauley MD CHEMISTRY & BLOO D GAS ORDERABLES Performing Organization Address [facility]/ZIP Co de Phone Number [facility] [address] [place] [address] * (ABNORMAL) GLUCOSE, GLUCOMETER (10/13/2018 23:59 EDT) Glucose, Fingerstick 201(H) 70 - 100 mg/dl 10/14/2018 0:[address] [facility] Public Relations Sales Marketing ID [id number] 10/14/2018 0:[address] [facility] Comment:[facility] BLOOD SPECIMEN / Unknown 10/13/2018 23:59 EDT 10/14/2018 0:01 EDT Xiomara Mccauley MD CHEMISTRY & BLOO D GAS ORDERABLES [facility] [address] [place] [address] * (ABNORMAL) GLUCOSE, GLUCOMETER (10/13/2018 21:27 EDT) Glucose, Fingerstick 265(H) 70 - 100 mg/dl 10/13/2018 21:[address] [facility] Public Relations Sales Marketing ID [id number] 10/13/2018 21:[address] [facility] Comment:Test Performed by [facility] Services BLOOD SPECIMEN / Unknown 10/13/2018 21:27 EDT 10/13/2018 21:30 EDT Xiomara Mccauley MD CHEMISTRY & BLOO D GAS ORDERABLES Performing Organization Address City/[facility] Co de Phone Number [facility] [address] [place] [address] * (ABNORMAL) GLUCOSE, GLUCOMETER (10/13/2018 16:04 EDT) Glucose, Fingerstick 265(H) 70 - 100 mg/dl 10/13/2018 16:[address] [facility] Public Relations Sales Marketing ID [id number] 10/13/2018 16:[address] [facility] Comment:Test Performed by [facility] Services BLOOD SPECIMEN / Unknown 10/13/2018 16:04 EDT 10/13/2018 16:05 EDT Xiomara Mccauley MD CHEMISTRY & BLOO D GAS ORDERABLES Performing Organization Address [facility] Co de Phone Number [facility] [address] [place] [address] * (ABNORMAL) GLUCOSE, GLUCOMETER (10/13/2018 7:33 EDT) Glucose, Fingerstick 167(H) 70 - 100 mg/dl 10/13/2018 7:[address] [facility] Public Relations Sales Marketing ID [id number] 10/13/2018 7:[address] [facility] Comment:Test Performed by [facility] Services BLOOD SPECIMEN / Unknown 10/13/2018 7:33 EDT 10/13/2018 7:38 EDT Xiomara Mccauley MD CHEMISTRY & BLOO D GAS ORDERABLES Performing Organization Address City/[facility]/ZIP Co de Phone Number [facility] [address] [place] [address] * PROTIME (10/13/2018 6:00 EDT) Pro Time 12.3 10.3 - 13.4 secs 10/13/2018 7:38 [facility] I.N.R. 1.0 0.9 - 1.1 Ratio 10/13/2018 7:38 [facility] Comment: Moderate Intensity Coumadin INR = 2.0-3.0 Adjustments in anticoagulant therapy dose should be based upon the INR and NOT the Pro Time. Blood specimen (specimen) BLOOD SPECIMEN / Unknown 10/13/2018 6:00 EDT 10/13/2018 7:16 EDT Shaji Younger MD HEMATOLOGY & PF4 ORD ERABLES Performing Organization Address City/State/[facility] Co de Phone Number [facility] [address] [place] [address] * (ABNORMAL) COMPLETE BLOOD COUNT (10/13/2018 6:00 EDT) WBC 9.59 4.0 - 10.4 K/cmm 10/13/2018 7:30 [facility] RBC 3.20(L) 4.36 - 5.78 M/cmm 10/13/2018 7:30 [facility] Hemoglobin 10.7(L) 13.8 - 17.3 gm/dl 10/13/2018 7:30 [facility] HCT 30.9(L) 39.5 - 50.2 % 10/13/2018 7:30 [facility] MCV 97(H) 81 - 95 fl 10/13/2018 7:30 [facility] MCH 33.4(H) 27.6 - 33.0 pg 10/13/2018 7:30 [facility] MCHC 34.6 32.8 - 36.4 gm/dl 10/13/2018 7:30 [facility] RDW-CV 14.4(H) <14.2 % 10/13/2018 7:30 [facility] RDW-SD 50.1(H) <46.0 fl 10/13/2018 7:30 [facility] PLT 140(L) 141 - 377 K/cmm 10/13/2018 7:[address] [facility] MPV 10.5 9.5 - 12.7 fl 10/13/2018 7:[address] [facility] Blood specimen (specimen) BLOOD SPECIMEN / Unknown 10/13/2018 6:00 EDT 10/13/2018 7:16 EDT Shaji Younger MD HEMATOLOGY & PF4 ORD ERABLES Performing Organization Address [facility] de Phone Number [facility] [address] [place] [address] * (ABNORMAL) ELECTROLYTES (10/13/2018 6:00 EDT) Sodium 130(L) 136 - 145 mEq/L 10/13/2018 8:[address] [facility] Potassium 4.3 3.5 - 5.0 mEq/L 10/13/2018 8:[address] [facility] Chloride 89(L) 96 - 110 mEq/L 10/13/2018 8:[address] [facility] CO2 26 22 - 32 mEq/L 10/13/2018 8:[address] [facility] Blood specimen (specimen) BLOOD SPECIMEN / Unknown 10/13/2018 6:00 EDT 10/13/2018 7:16 EDT Shaji Younger MD CHEMISTRY & BLOOD GA S ORDERABLES Performing Organization Address [facility] de Phone Number [facility] [address] [place] [address] * (ABNORMAL) GLUCOSE, GLUCOMETER (10/12/2018 20:10 EDT) Glucose, Fingerstick 219(H) 70 - 100 mg/dl 10/12/2018 20:[address] [facility] Public Relations Sales Marketing ID [id number] 10/12/2018 20:[address] [facility] Comment:Test Performed by [facility] BLOOD SPECIMEN / Unknown 10/12/2018 20:10 EDT 10/12/2018 20:11 EDT Xiomara Mccauley MD CHEMISTRY & BLOO D GAS ORDERABLES Performing Organization Address [facility] Co de Phone Number [facility] [address] [place] [phone] * (ABNORMAL) GLUCOSE, GLUCOMETER (10/12/2018 18:34 EDT) Glucose, Fingerstick 197(H) 70 - 100 mg/dl 10/12/2018 18:[address] [facility] Public [employer] Sales Marketing ID [id number] 10/12/2018 18:[address] [facility] Comment:Test Performed by [facility] BLOOD SPECIMEN / Unknown 10/12/2018 18:34 EDT 10/12/2018 18:48 EDT Xiomara Mccauley MD CHEMISTRY & BLOO D GAS ORDERABLES Performing Organization Address [facility] Co de Phone Number [facility] [address] [place] [address] * (ABNORMAL) GLUCOSE, GLUCOMETER (10/12/2018 14:10 EDT) Glucose, Fingerstick 134(H) 70 - 100 mg/dl 10/12/2018 14:[address] [facility] Public [employer] Sales [employer] ID [id number] 10/12/2018 14:[address] [facility] Comment:Test Performed by [facility] BLOOD SPECIMEN / Unknown 10/12/2018 14:10 EDT 10/12/2018 14:11 EDT Xiomara Mccauley MD CHEMISTRY & BLOO D GAS ORDERABLES Performing Organization Address [facility] Co de Phone Number [facility] [address] [place] [address] * (ABNORMAL) PROTIME (10/12/2018 14:06 EDT) Pro Time 13.6(H) 10.3 - 13.4 secs 10/12/2018 14:[address] [facility] I.N.R. 1.2(H) 0.9 - 1.1 Ratio 10/12/2018 14:38 [facility] Comment: Moderate Intensity Coumadin INR = 2.0-3.0 Adjustments in anticoagulant therapy dose should be based upon the INR and NOT the Pro Time. Blood specimen (specimen) BLOOD SPECIMEN / Unknown 10/12/2018 14:06 EDT 10/12/2018 14:14 EDT Shaji Younger MD HEMATOLOGY & PF4 ORD ERABLES [facility] [address] [place] [address] * (ABNORMAL) COMPLETE BLOOD COUNT (10/12/2018 14:06 EDT) WBC 10.31 4.0 - 10.4 K/cmm 10/12/2018 14:33 [facility] RBC 3.42(L) 4.36 - 5.78 M/cmm 10/12/2018 14:33 [facility] Hemoglobin 11.2(L) 13.8 - 17.3 gm/dl 10/12/2018 14:33 [facility] HCT 33.2(L) 39.5 - 50.2 % 10/12/2018 14:33 [facility] MCV 97(H) 81 - 95 fl 10/12/2018 14:33 [facility] MCH 32.7 27.6 - 33.0 pg 10/12/2018 14:33 [facility] MCHC 33.7 32.8 - 36.4 gm/dl 10/12/2018 14:33 [facility] RDW-CV 14.6(H) <14.2 % 10/12/2018 14:33 [facility] RDW-SD 51.2(H) <46.0 fl 10/12/2018 14:33 [facility] PLT 150 141 - 377 K/cmm 10/12/2018 14:33 [facility] MPV 10.2 9.5 - 12.7 fl 10/12/2018 14:[address] [facility] Blood specimen (specimen) BLOOD SPECIMEN / Unknown 10/12/2018 14:06 EDT 10/12/2018 14:14 EDT Shaji Younger MD HEMATOLOGY & PF4 ORD ERABLES Performing Organization Address [facility] de Phone Number [facility] [address] [place] [address] * (ABNORMAL) ELECTROLYTES (10/12/2018 14:06 EDT) Sodium 131(L) 136 - 145 mEq/L 10/12/2018 14:[address] [facility] Potassium 4.2 3.5 - 5.0 mEq/L 10/12/2018 14:[address] [facility] Chloride 90(L) 96 - 110 mEq/L 10/12/2018 14:[address] [facility] CO2 29 22 - 32 mEq/L 10/12/2018 14:[address] [facility] Blood specimen (specimen) BLOOD SPECIMEN / Unknown 10/12/2018 14:06 EDT 10/12/2018 14:14 EDT Shaji Younger MD CHEMISTRY & BLOOD GA S ORDERABLES Performing Organization Address [facility] de Phone Number [facility] [address] [place] [address] * HEMOGLOBIN A1C (10/12/2018 14:06 EDT) Hemoglobin A1C 9.7 % 10/12/2018 15:[address] [facility] Comment: Reference Range: <5.7% Normal 5.7-6.4% Prediabetes =>6.5% Diagnostic for diabetes (if confirmed) Goals for glycemic control in diabetes ADA 2017 For non adults with diabetes: ?? Target <7.0% For children and adolescents with type 1 diabetes: ?? Target <7.5% More or less stringent targets may be appropriate for individual patients. Est Avg Glucose 232 mg/dl 9 15:[address] [facility] Comment: eAG represents the A1c result expressed as average glucose in mg/dl. Blood specimen (specimen) BLOOD SPECIMEN / Unknown 10/12/2018 14:06 EDT 10/12/2018 14:14 EDT Shaji Younger MD CHEMISTRY & BLOOD GA S ORDERABLES [facility] [address] [place] [address] documented in this encounter Visit Diagnoses Diagnosis Cellulitis- Primary Cellulitis and abscess of unspecified site Cellulitis of left lower extremity Cellulitis and abscess of leg, except foot ESRD (end stage renal disease) ([facility]) End stage renal disease ESRD (end stage renal disease) ([facility]) End stage renal disease documented in this encounter Administered Medications Inactive Administered Medications - up to 3 most recent administrations Medication Order MAR Action Action Date Dose Rate Site acetaminophen (TYLENOL) tablet 1,000 mg 1,000 mg, oral, EVERY 8 HOURS PRN, Starting on Tue10/12/18 at 1345, Until Tue10/12/18 at 1949, Pain, Fever, Routine Given 10/12/2018 15:51 EDT 1,000 mg acetaminophen (TYLENOL) tablet 650 mg 650 mg, oral, EVERY 6 HOURS, First dose (after last modification) on Tue10/12/18 at 2200, Until Discontinued, Routine Given 10/14/2018 9:57 EDT 650 mg Given 10/14/2018 4:44 EDT 650 mg Given 10/13/2018 21:20 EDT 650 mg bumetanide (BUMEX) tablet 2 mg 2 mg, oral, 2 TIMES DAILY, First dose on Tue10/12/18 at 2100, Until Discontinued, Routine Given 10/14/2018 9:57 EDT 2 mg Given 10/13/2018 21:20 EDT 2 mg Given 10/13/2018 8:08 EDT 2 mg calcitRIOL (ROCALTROL) capsule 0.75 mcg 0.75 mcg, oral, EVERY TUE, TH, SAT (DIALYSIS), First dose on Tue10/13/18 at 1000, Until Discontinued, Routine Given 10/14/2018 9:45 EDT 0.75 mcg calcium carbonate (TUMS) 200 mg calcium (500 mg) per chewable tablet tablet,chewable 1 Tab 1 Tablet, oral, EVERY 4 HOURS PRN, Starting on Tue10/12/18 at 1401, Until 10/14/18 at 1634, Heartburn, Indigestion, Routine ceFAZolin (ANCEF) syringe 2,000 mg 2,000 mg, intravenous, Administer over 10 Minutes, ONCE IN DIALYSIS, 1 dose, On Tue10/13/18 at 0945, STAT Given 10/13/2018 10:12 EDT 2,000 mg ceFAZolin (ANCEF) syringe 2,000 mg 2,000 mg, intravenous, Administer over 10 Minutes, EVERY E, TH, SAT (DIALYSIS), 3 doses, First dose (after last reorder) on Tue10/14/18 at 0800, Last dose on Tue10/19/18 at 0800, STAT Given 10/14/2018 10:53 EDT 2,000 mg dextrose 50 % solution 12.5 g 12.5 g (25 mL), intravenous, PRN, Starting on Tue10/12/18 at 1400, Until 10/14/18 at 1634, Low Blood Sugar, Routine gabapentin (NEURONTIN) capsule 300 mg 300 mg, oral, AT BEDTIME, First dose (after last modification) on Tue10/12/18 at 2100, Until Discontinued, Routine Given 10/13/2018 21:20 EDT 300 mg Given 10/12/2018 20:04 EDT 300 mg glucagon injection 1 mg 1 mg, intramuscular, PRN, Starting on Tue10/12/18 at 1400, Until 10/14/18 at 1634, Low blood sugar, Routine heparin injection 5,000 Units 5,000 Units, subcutaneous, EVERY 12 HOURS, First dose on Tue10/12/18 at 2100, Until Discontinued, Routine Given 10/14/2018 9:45 EDT 5,000 Units Given 10/13/2018 21:20 EDT 5,000 Units Given 10/13/2018 8:08 EDT 5,000 Units insulin aspart U-100 (NOVOLOG FLEXPEN) injection subcutaneous, 3 TIMES DAILY WITH MEALS, First dose on Tue10/12/18 at 1700, Until Discontinued, Routine Given 10/14/2018 8:09 EDT 2 Units Given 10/13/2018 16:38 EDT 3 Units insulin aspart U-100 (NOVOLOG FLEXPEN) injection subcutaneous, AT BEDTIME, First dose on Tue10/12/18 at 2100, Until Discontinued, Routine Given 10/13/2018 21:47 ED T 5 Units losartan (COZAAR) tablet 50 mg 50 mg, oral, DAILY, First dose on Tue10/12/18 at 1415, Until Discontinued, Routine Given 10/14/2018 11:28 EDT 50 mg Given 10/13/2018 8:08 EDT 50 mg Given 10/12/2018 14:13 EDT 50 mg multivitamin (NEPHROVITE) 0.8 mg tablet 1 Tab 1 Tablet, oral, AT BEDTIME, First dose on Tue10/13/18 at 2100, Until Discontinued, Routine Given 10/13/2018 21:2 0 EDT 1 Tablet polyethylene glycol 3350 (MIRALAX) packet 17 g 17 g, oral, DAILY PRN, Starting on Tue10/12/18 at 1345, Until 10/14/18 at 1634, Constipation, Routine Given 10/13/2018 13:10 EDT 17 g pravastatin (PRAVACHOL) tablet 40 mg 40 mg, oral, AT BEDTIME, First dose on Tue10/12/18 at 2100, Until Discontinued, Routine Given 10/13/2018 21:20 EDT 4 0 mg Given 10/12/2018 20:03 EDT 40 mg prochlorperazine (COMPAZINE) tablet 10 mg 10 mg, oral, EVERY 6 HOURS PRN, Starting on Tue10/12/18 at 1401, Until 10/14/18 at 1634, Nausea, Routine ramelteon (ROZEREM) tablet 8 mg 8 mg, oral, AT BEDTIME PRN, Starting on Tue10/12/18 at 1345, Until 10/14/18 at 1634, Sleep, Routine Given 10/13/2018 23:57 EDT 8 mg Given 10/12/2018 22:20 EDT 8 mg sertraline (ZOLOFT) tablet 25 mg 25 mg, oral, DAILY, First dose on Tue10/12/18 at 1415, Until Discontinued, Routine Given 10/13/2018 8:08 EDT 25 mg Given 10/12/2018 14:12 EDT 25 mg sertraline (ZOLOFT) tablet 50 mg 50 mg, oral, DAILY, First dose (after last modification) on 10/14/18 at 0900, Until Discontinued, Routine Given 10/14/2018 9:45 EDT 50 mg tamsulosin (FLOMAX) capsule 0.4 mg 0.4 mg, oral, DAILY, First dose on Barbara 10/12/18 at 1415, Until Discontinued, Routine Given 10/14/2018 9:57 EDT 0.4 mg Given 10/13/2018 8:09 EDT 0.4 mg Given 10/12/2018 14:12 EDT 0.4 mg documented in this encounter Discontinued Medications Medication Sig Discontinue Reason Start Date End Da te sertraline (ZOLOFT) 25 mg tabletIndications:major depressive disorder Take 50 mg by mouth daily. Reorder 10/14/2018 documented as of this encounter Historical Medications * This list may reflect changes made after this encounter. Medication Sig Dispensed Refills Start Date End Date multivitamin (NEPHROVITE) 0.8 mg tablet Take 1 Tab by mouth at bedtime. 10/14/2018 sertraline (ZOLOFT) 25 mg tabletIndications:major depressive disorder Take 2 Tabs by mouth daily. 10/14/2018 lidocaine-prilocaine (EMLA) cream Apply topically every , , Tue (Dialysis). Apply to fistula site. iron sucrose (VENOFER) 100 mg iron/5 mL injection Inject 50 mg into the vein every Tuesday (Dialysis). epoetin beta, methoxy peg (MIRCERA) 50 mcg/0.3 mL syringe Inject 50 mcg into the vein every Tuesday (Dialysis). mv,Lp-VD-[id number]-OM-3-dha-ep a-fish (PRORENAL QD) 400-500 mcg-unit capsule Take 1 Capsule by mouth daily. Prorenal QD multivitamin. calcitRIOL (ROCALTROL) 0.25 mcg capsule Take 0.75 mcg by mouth every , , Tue (Dialysis). INSULIN ASPART U-100 SUBQ Inject 76 Units into the skin daily. Patient self-administers via V-Go pump. tamsulosin (FLOMAX) 0.4 mg capsule Take 0.4 mg by mouth daily. bumetanide (BUMEX) 2 mg tablet Take 2 mg by mouth 2 times daily. losartan (COZAAR) 50 mg tablet Take 50 mg by mouth daily. gabapentin (NEURONTIN) 300 mg capsule Take 300 mg by mouth 3 times daily. pravastatin (PRAVACHOL) 40 mg tablet Take 40 mg by mouth daily. aspirin 325 mg tablet Take 325 mg by mouth daily. sertraline (ZOLOFT) 25 mg tabletIndications:major depressive disorder Take 50 mg by mouth daily. 10/14/2018 added in this encounter Active and Recently Administered Medications Times are shown in EDT. Scheduled Medication Order 10/12/2018 10/13/2018 10/14/2018 acetaminophen (TYLENOL) tablet 650 mg 650 mg, oral, EVERY 6 HOURS, First dose (after last modification) on Tue10/12/18 at 2200, Until Discontinued, Routine 2112 (Given - Provider: Tiara Bergman RN) 0500 (Given - Provider: Will Parisi RN)1012 (Given - Provider: Giovana Church RN)1532 (Given - Provider: Omayra Parson RN)2120 (Given - Provider: Will Parisi RN - Comment: pain below his left knee) 0444 (Given - Provider: Will Parisi RN)0957 (Given - Provider: Lisa Mccarthy RN)1600 (Canceled Entry - Provider: Batch Job User Admin - Comment: Automatically canceled at discontinue of medication order) bumetanide (BUMEX) tablet 2 mg 2 mg, oral, 2 TIMES DAILY, First dose on Tue10/12/18 at 2100, Until Discontinued, Routine 2002 (Given - Provider: Tiara Bergman RN) 0808 (Given - Provider: Giovana Church RN)212 (Given - Provider: Will Parisi RN) 0957 (Given - Provider: Lisa Mccarthy RN) calcitRIOL (ROCALTROL) capsule 0.75 mcg 0.75 mcg, oral, EVERY TUE, , SAT (DIALYSIS), First dose on Tue10/13/18 at 1000, Until Discontinued, Routine 1027 (Hold - Provider: Giovana Church RN - Reason: Medication not available - Comment: new med, not avail. will get when back on floor) 0945 (Given - Provider: Lisa Mccarthy RN) ceFAZolin (ANCEF) syringe 2,000 mg (COMPLETED) 2,000 mg, intravenous, Administer over 10 Minutes, ONCE IN DIALYSIS, 1 dose, On Tue10/13/18 at 0945, STAT 1012 (Given - Provider: Giovana Church RN) ceFAZolin (ANCEF) syringe 2,000 mg 2,000 mg, intravenous, Administer over 10 Minutes, EVERY TUE, TH, SAT (DIALYSIS), 3 doses, First dose (after last reorder) on 10/14/18 at 0800, Last dose on Tue10/19/18 at 0800, STAT 1053 (Given - Provid er: Lisa Mccarthy RN) gabapentin (NEURONTIN) capsule 300 mg 300 mg, oral, AT BEDTIME, First dose (after last modification) on Tue10/12/18 at 2100, Until Discontinued, Routine 2003 (Given - Provider: Tiara Bergman RN) 2119 (Given - Provider: Will Parisi RN) heparin injection 5,000 Units 5,000 Units, subcutaneous, EVERY 12 HOURS, First dose on Tue10/12/18 at 2100, Until Discontinued, Routine 2002 (Given - Provider: Tiara Bergman RN) 807 (Given - Provider: Giovana Church RN)2119 (Given - Provider: Will Parisi, PERNELL) 0945 (Given - Provider: Lisa Mccarthy RN) insulin aspart U-100 (NOVOLOG FLEXPEN) injection subcutaneous, 3 TIMES DAILY WITH MEALS, First dose on Tue10/12/18 at 1700, Until Discontinued, Routine 1836 (Not Given - Provider: Tiara Begrman RN - Reason: Other - Comment: pt sefl administered 4 units through Insulin pump. FS 197) 0731 (Not Given - Provider: iGovana Church RN - Reason: Order parameters not met)1222 (Not Given - Provider: Denisse Tee RN - Reason: Other - Comment: pt ate at dialysis- per pt he dosed himself with his pump)1638 (Given - Provider: Denisse Tee RN) 0809 (Given - Provider: Lisa Mccarthy RN)1215 (Hold - Provider: Shyann Booth RN - Reason: Other - Comment: pt not eating lunch) insulin aspart U-100 (NOVOLOG FLEXPEN) injection subcutaneous, AT BEDTIME, First dose on Tue10/12/18 at 2100, Until Discontinued, Routine 2010 (Not Given - Provider: Tiara Bergman RN - Reason: Other - Comment: FS 219, pt self administered 4 units of insulin through insulin pump.) 2146 (Given - Provider: Will Parisi RN) losartan (COZAAR) tablet 50 mg 50 mg, oral, DAILY, First dose on Barbara 10/12/18 at 1415, Until Discontinued, Routine 1412 (Given - Provider: Omayra Parson RN) 0808 (Given - Provider: Giovana Churhc RN) 1128 (Given - Provider: Lisa Mccarthy, PERNELL) multivitamin (NEPHROVITE) 0.8 mg tablet 1 Tab 1 Tablet, oral, AT BEDTIME, First dose on Tue10/13/18 at 2100, Until Discontinued, Routine 2119 (Given - Provider: Will Parisi RN) pravastatin (PRAVACHOL) tablet 40 mg 40 mg, oral, AT BEDTIME, First dose on Barbara 10/12/18 at 2100, Until Discontinued, Routine 2002 (Given - Provider: Tiara Bergman RN) 2119 (Given - Provider: Will Parisi RN) sertraline (ZOLOFT) tablet 25 mg (CANCELED) 25 mg, oral, DAILY, First dose on Barbara 10/12/18 at 1415, Until Discontinued, Routine 141 (Given - Provider: Omayra Parson RN) 0808 (Given - Provider: Giovana Church RN) sertraline (ZOLOFT) tablet 50 mg 50 mg, oral, DAILY, First dose (after last modification) on Tue10/14/18 at 0900, Until Discontinued, Routine 0945 (Given - Provid er: Lisa Mccarthy RN) tamsulosin (FLOMAX) capsule 0.4 mg 0.4 mg, oral, DAILY, First dose on Barbara 10/12/18 at 1415, Until Discontinued, Routine 141 (Given - Provider: Omayra Parson RN) 0809 (Given - Provider: Giovana Church, PERNELL) 0957 (Given - Provider: Lisa Mccarthy, PERNELL) PRN Medication Order 10/12/2018 10/13/2018 10/14/2018 acetaminophen (TYLENOL) tablet 1,000 mg (CANCELED) 1,000 mg, oral, EVERY 8 HOURS PRN, Starting on Barbara 10/12/18 at 1345, Until Barbara 10/12/18 at 1949, Pain, Fever, Routine 1551 (Given - Provider: Tiara Bergman, RN) calcium carbonate (TUMS) 200 mg calcium (500 mg) per chewable tablet tablet,chewable 1 Tab 1 Tablet, oral, EVERY 4 HOURS PRN, Starting on Barbara 10/12/18 at 1401, Until 10/14/18 at 1634, Heartburn, Indigestion, Routine dextrose 50 % solution 12.5 g 12.5 g (25 mL), intravenous, PRN, Starting on Barbara 10/12/18 at 1400, Until 10/14/18 at 1634, Low Blood Sugar, Routine glucagon injection 1 mg 1 mg, intramuscular, PRN, Starting on Barbara 10/12/18 at 1400, Until 10/14/18 at 1634, Low blood sugar, Routine polyethylene glycol 3350 (MIRALAX) packet 17 g 17 g, oral, DAILY PRN, Starting on Barbara 10/12/18 at 1345, Until 10/14/18 at 1634, Constipation, Routine 1310 (Given - Provider: Omayra Parson RN) prochlorperazine (COMPAZINE) tablet 10 mg 10 mg, oral, EVERY 6 HOURS PRN, Starting on Barbara 10/12/18 at 1401, Until 10/14/18 at 1634, Nausea, Routine ramelteon (ROZEREM) tablet 8 mg 8 mg, oral, AT BEDTIME PRN, Starting on Barbara 10/12/18 at 1345, Until 10/14/18 at 1634, Sleep, Routine 2220 (Given - Provider: Tiara Bergman, RN) 2357 (Given - Provider: Will Parisi, PERNELL) documented in this encounter Orders Medications Ordered That [place]cy ht Not Have Been Administered Count Last Ordered Date First Ordered Date ceFAZolin (ANCEF) injection 2 g 1 9 calcium carbonate (TUMS) 200 mg calcium (500 mg) per chewable tablet tablet,chewable 1 Tab 1 10/12/2018 dextrose 50 % solution 12.5 g 1 10/12/2018 enoxaparin (LOVENOX) injection 40 mg 1 09/30 gabapentin (NEURONTIN) capsule 300 mg 1 glucagon injection 1 mg 1 10/12/2018 prochlorperazine (COMPAZINE) tablet 10 mg 1 10/12/2018 Diet Count Last Ordered Date First Orde red Date DISCHARGE DIET 2 10/14/2018 Nursing Count Last Ordered Date First Orde red Date ACTIVITY INSTRUCTIONS 1 10/14/2018 BATHING INSTRUCTIONS 1 10/14/2018 DRIVING INSTRUCTIONS 1 10/14/2018 PT Count Last Ordered Date First Orde red Date PT EVALUATION AND TREAT 1 10/14/2018 IV Count Last Ordered Date First Orde red Date IV REQUEST 1 10/12/2018 Admission Count Last Ordered Date First Orde red Date STATUS: INPATIENT ACUTE ADMISSION 1 019 STATUS: OUTPATIENT OBSERVATION SERVICES 1 0 10/12/2018 Transfer Count Last Ordered Date First Orde red Date CHANGE ATTENDING TO: 1 10/14/2018 NOTIFY PPS OF DISCHARGE COMPLETE 1 10/15/19 PPS NOTIFICATION OF PATIENT ARRIVAL ON UNIT 4 10/14/2018 10/13/2018 UR PATIENT STATUS CHANGE 2 10/13/2018 Discharge Count Last Ordered Date First Orde red Date DISCHARGE PATIENT 1 10/14/2018 Legal Count Last Ordered Date First Orde red Date MISCELLANEOUS DISCHARGE INSTRUCTIONS 1 09/30 documented in this encounter Care Teams Title Examiner Relationship Specialty Start Date End Date Jarad Iglesias, DANIKA [facility] [place] [id number] PCP - General 10/12/18 documented as of this encounter
--- OUTSIDE RECORDS SUMMARY | 2023-12-28 16:42 | XMS_ITS | Encounter Summary ---
Author Organization [facility] Address [address] [place] [address] Care Team Providers Care Roll Weigher Name Role Phone Sanjay Shaina Keller DNP Primary Care Provider [phone] Encounter Details Date Type Department Care Team (Late st Contact Info) Description 01/22/2019 Results Only [facility] [phone] Deb Echeverria MD [address] [place] [address] [address] [place], [place] [id number] Social History Tobacco Use Types Packs/Day Years [...] Procedure Name Priority Date/Time Associated Diagnosis Comments SURGICAL PATHOLOGY Routine 01/22/2019 17 :14 EDT documented in this encounter Results * SURGICAL PATHOLOGY (01/22/2019 17:14 EDT) Pathology Report: SURGICAL PATHOLOGY REPORT Reports generated via electronic interface contain original data; however they are lacking the format of the original report. Caution should be taken when reading/interpret ing unformatted reports. Name: ? SINDI RUDOLPH ? Accession #: ? [id number] ? : ? 1960 (Age: 58) ??M ? Collect Date: ? 01/22/2019 ? Location: ? [facility] ? Receive Date: ? 01/22/2019 ? Provider: DEB ECHEVERRIA MD Copy to: SHAINA KELLER DNP ? Final Pathologic Diagnosis: A. COLON, TRANSVERSE, POLYP, BIOPSY: - Colonic mucosa with no significant diagnostic abnormality. - No definite polyp identified. - Deeper sections x3 examined. B. COLON, DESCENDING, POLYP, BIOPSY: - Suggestive of hyperplastic polyp. - Deeper sections x3 examined. C. COLON, SIGMOID, POLYP X7, BIOPSY: - Hyperplastic polyps. D. RECTUM, POLYP X7, BIOPSY: - Hyperplastic polyps. Document reviewed and electronically signed by: CY TIPTON MD Report ??Date: 01/25/2019 08:41 By the signature above, the attending physician certifies that he/she has personally conducted a gross and/or microscopic examination of the described specimens and rendered or confirmed the above diagnosis. Specimen(s) Received: A. ??Transverse colon polyp B. ??Descending colon polyp C. ??Sigmoid colon polyp (x7) D. ??Rectal polyp (x7) Clinical History: History of polyps, colon cancer screening Gross Description: A. ?Received in formalin labelled with proper patient identification (initials C, M) and transverse colon polyp is a single ramírez-white tissue fragment (0.5 x 0.1 x 0.1 cm). Submitted intact in A1. B. ?Received in formalin labelled with proper patient identification (initials C, M) and descending colon polyp is a single ramírez tissue fragment (0.3 x 0.2 x 0.1 cm). Submitted intact in B1. C. ?Received in formalin labelled with proper patient identification (initials C, M) and sigmoid polyp is an aggregate of ramírez polypoid tissue fragment (0.7 x 0.5 x 0.2 cm). Submitted entirely in C1 through C4. D. ?Received in formalin labelled with proper patient identification (initials C, M) and rectal polyp are four ramírez-white tissues (0.1 x 0.1 x 0.1 cm to 0.3 x 0.2 x 0.1 cm). Entirely submitted in D1. Apollo Smith 01/23/2019 8:57 AM End of Report [facility] 01/22/2019 17:1 4 EDT 01/22/2019 17:14 EDT Deb Echeverria MD PATHOLOGY ORDERA ROSIE [facility] [address] [place] [address] documented in this encounter Visit Diagnoses Not on filedocumented in this encounter Care Teams Roll Weigher Relationship Specialty Start Date End Date Shaina Iglesias, DNP [facility] [place] [id number] PCP - General 10/12/18 documented as of this encounter
[2023-12-28 16:59] LABS: Abs Immature Grans 0.03 10^3/uL (0.0-0.06); Absolute Basophil Count 0.05 10^3/uL (0.0-0.2); Absolute Eosinophil Count 0.48 10^3/uL (0.0-0.7); Absolute Lymphocyte Count 0.69 10^3/uL (1.2-3.4); Absolute Monocyte Count 0.72 10^3/uL (0.1-0.8); Absolute Neutrophil Count 5.99 10^3/uL (1.2-6.7); Basophils % 0.6 %; HCT 35.8 % (40.0-50.0); HGB 11.2 g/dL (13.5-17.5); Immature Grans % 0.4 %; Lymphocytes % 8.7 %; MCH 31.5 pg (27.0-33.0); MCHC 31.3 % (32.0-36.0); MCV 101 fL (80-95); MPV 10.4 fL (8.0-11.0); Neutrophils % 75.3 %; Platelet Count 102 10^3/uL (130-400); RBC 3.56 10^6/uL (4.36-5.78); RDW 17.7 % (11.8-14.1); RDW-SD 65.8 fL; WBC 7.96 10^3/uL (4.4-10.8)
[2023-12-28 17:01] LABS: ESR 77 mm/hr (0-20); Lactate 1.7 mmol/L (0.6-1.4)
[2023-12-28 17:11] LABS: INR 1.1 (0.9-1.1); Prothrombin Time 10.7 sec (9.1-11.1)
[2023-12-28 17:21] LABS: ALT 12 U/L (16-63); AST 13 U/L (15-37); Albumin 3.7 g/dL (3.4-5.0); Alkaline Phosphatase 87 U/L (46-116); Anion Gap 7.9 mmol/L (3-11); BUN 28 mg/dL (7-18); Bilirubin, Total 0.53 mg/dL (0.2-1.0); C-Reactive Protein 11.22 mg/dL (<or=0.5); CO2 32.1 mmol/L (21.0-32.0); Calcium 9.2 mg/dL (8.5-10.1); Chloride 97 mmol/L (98-107); Glucose 251 mg/dL (74-106); Magnesium 2.2 mg/dL (1.8-2.4); Potassium 4.3 mmol/L (3.5-5.1); Sodium 137 mmol/L (136-145); Total Protein 8.3 g/dL (6.4-8.2)
[2023-12-28 17:24] LABS: CREATININE 5.8 mg/dL (0.70-1.30)
--- NOTE | 2023-12-28 17:30 | DI.CT_ITS ---
Exam(s) CT LOWER EXTREMITY RT WO EXAM: CT LOWER EXTREMITY RT WO CLINICAL HISTORY: Foot Cellulitis R/O Osteo. TECHNIQUE: Imaging Protocol: Axial computed tomography images with coronal and sagittal reformatted images were created and reviewed. CONTRAST MATERIAL: Intravenous: None COMPARISON: CR XR FOOT RT COMPLETE from 12/28/2023 FINDINGS: SOFT TISSUES: There is an ulcer on the undersurface/plantar aspect of the foot the level of the head of the great t oe metatarsal. There is subjacent soft tissue density and there is some edema throughout the foot. There is no gas in the soft tissues nor in the tendon sheaths of the foot and ankle region. Vascular calcifications noted in the foot. OSSEOUS: There is no CT evidence of osteomyelitis of the great toe metatarsal head and subjacent 2 sesamoid aylin patrizia. There appears to be a tiny ulcer in the distal tip of the 5th toe with subjacent induration and signi ficant loss of bone substance of the distal phalanx of the 5th toe suspicious for osteomyelitis. There are significant degenerative changes at the tarsometatarsal joints with degenerative subarticul ar cysts, this most prominent in the 2nd and 3rd tarsometatarsal joints but also involving the medial cuneiform. Fourth and 5th tarsometatarsal joints appear intact. Milder degenerative changes are al so noted in the 3rd tarsometatarsal joint. There are degenerative subarticular cyst in the distal na vicular and adjacent medial cuneiform. There is no evidence of midfoot collapse. No pes planus. Hi ndfoot articulations appear intact. Hindfoot articulations appear unremarkable IMPRESSION: Tiny skin ulcer distal aspect of the 5th toe with findings consistent with osteomyelitis in the dista l phalanx of the 5th toe. There is an ulcer also noted on the plantar surface at the level of the great toe metatarsal head but without evidence of osteomyelitis at this level. There are advanced midfoot degenerative changes as described above without evidence of midfoot collap se at this time. Soft tissue induration but no obvious discernible abscess on this noninfused study and there is no ga s within the soft tissues. Vascular calcification noted in the foot. Findings called by myself to the ER provider 12/28/2023 at 6:14 p.m. RADIATION DOSE DELIVERED: 109.97mGy.cm Total DLP DATA REPOSITORY: All CT scans at this facility are submitted to the National Radiology Data Registry (NRDR) Dose Index Registry (DIR) with the [employer] ([employer]). RADIATION OPTIMIZATION: All CT scans at this facility use at least one of these dose optimization te chniques: automated exposure control; mA and/or kV adjustment per patient size (includes targeted exa ms where dose is matched to clinical indication); or iterative reconstruction.
[2023-12-28] MEDS: PIPERACILLIN/TAZO 3.375 GM in Normal Saline 50 ML IVPB (17:37)
[2023-12-28] MEDS: VANCOMYCIN/WATER (PEG) 1.5 GM/300 ML BAG IVPB (18:16)
[2023-12-28] MEDS: Clindamycin 150 MG CAP, 12 CAPS/BTL 450 MG PO (20:58)
[2023-12-28] MEDS: Clindamycin 150 MG CAP 450 MG PO (21:21)
[2023-12-28] MEDS: Clindamycin 150 MG CAP, 12 CAPS/BTL 1800 MG (21:22)
--- NOTE | 2023-12-29 14:42 | NUR.NOTE ---
Accessed Pt chart to obtain the name of the antibiotics given to the Pt. He has positive lab cultures. Lab requesition clipped to clipboard in the Drs Room
--- NOTE | 2023-12-30 07:24 | W.ED.FU ---
Date of service: 12/30/23 Time of Service: 07:24 Follow Up Plan: One of the patient's blood cultures is growing gram-positive cocci, chart reviewed was here for left foot cellulitis. This could be a false positive but I attempted to reach the patient to go over the results and see how he was feeling and potentially him come back but he did not answer, message was left on his voicemail to return call to the emergency department.
== END 2023-12-28 21:25 | disposition home or self-care (01) ==
PROVIDERS: Emergency Provider Registered Nurse Emergency; PCP Student in an Organized Health Care Education/Training Program
DX: E11.621 Type 2 diabetes mellitus with foot ulcer (principal); L02.611 Cutaneous abscess of right foot; L97.512 Non-pressure chronic ulcer of other part of right foot with fat layer exposed; L03.115 Cellulitis of right lower limb; Z86.79 Personal history of other diseases of the circulatory system
CPT/HCPCS: 80053; 85652; 87040; 87077; 96365; 96367; 99284; 73630; 73700; 83605; 83735; 85025; 85610; 86140; 87186; 99283; J2543; J3372

== ENCOUNTER 2023-12-31 16:39 | Emergency (ER) | payer MEDICARE, MEDICAID, SELFPAY ==
[2023-12-31] VITALS (7 sets, daily range): BP systolic 149–172; BP diastolic 50–62; PULSE 76–88; RESP 16; TEMP 35.8–36.5; O2SAT 87–99
--- NOTE | 2023-12-31 16:50 | W.ED.GENAD ---
Discharge Plan Disposition Patient Disposition: Home Discharge Details Clinical Impression: Cellulitis and abscess of foot, Ulcer of right foot with fat layer exposed Primary Care Provider: Jonatan Ambrosio ED Provider: Hayley Sorenson Home Meds and New Rx's Prescriptions: Continued sevelamer carbonate [Renvela] 800 mg tablet 800 mg PO TID gabapentin 300 mg capsule 300 mg PO TID albuterol sulfate [Ventolin HFA] 90 mcg/actuation HFA aerosol inhaler 2 puff inhalation Q6H PRN (Reason: shortness of breath or wheezing) Qty: 8.5 4RF fluticasone furoate-vilanterol [Breo Ellipta] 100-25 mcg/dose blister with device 1 inh inhalation DAILY Qty: 60 3RF ketoconazole 2 % cream 1 applic topical DAILY Qty: 120 6RF Rx Instructions: Apply to toenails once daily fluticasone propionate [Flonase Allergy Relief] 50 mcg/actuation spray,suspension 1 spray intranasal BID Rx Instructions: administer into each nostril insulin glargine [Basaglar KwikPen U-100 Insulin] 100 unit/mL (3 mL) insulin pen 60 unit subcut HS (DME) Oxygen Tank See Rx Instructions .Route Rx Instructions: continuous at 2 L atorvastatin [Lipitor] 40 mg tablet 40 mg PO HS Patient Comments: TAKE ONE TABLET BY MOUTH EVERY EVENING bumetanide 2 mg tablet 2 mg PO BID (DME) lancets 1 EACH misc 1 ea Miscellaneous QID Qty: 400 Rx Instructions: DX: 250.0 IDDM (DME) BD Regular Bevel Wilson 1 EACH needle 1 ea Intrauterine AC Qty: 100 Rx Instructions: insulin pen needles (DME) pen needle, diabetic 1 EACH needle 1 ea Sub-Q TID Qty: 100 Rx Instructions: 31G X 1 DX: 250 (DME) Blood Glucose Test 1 EACH strip 1 ea Miscellaneous QID Qty: 400 Rx Instructions: DX:250.0 IDDM One touch ultra sertraline 50 mg tablet 50 mg PO DAILY insulin aspart U-100 [Novolog FlexPen U-100 Insulin] 100 unit/mL (3 mL) insulin pen 16 unit subcut DIRECTED Rx Instructions: 16-20 U hs amlodipine 10 mg tablet 10 mg PO DAILY diclofenac sodium [Aleve (diclofenac)] 1 % gel 2 g topical QID Rx Instructions: apply to single elbow, wrist or hand; for hand includes palm/fingers/back of hand (DME) EasiVent Holding Chamber Spacer See Rx Instructions .Route Rx Instructions: As directed tamsulosin 0.4 mg capsule 0.4 mg PO DAILY albuterol sulfate [Ventolin HFA] 90 mcg/actuation HFA aerosol inhaler 2 puff inhalation Q6H PRN aspirin 325 mg tablet 180 mg PO DAILY clindamycin HCl 150 mg capsule 450 mg PO TID 10 Days Qty: 90 0RF Rx Instructions: Take 3 capsules by mouth 3 times daily for the next 10 days with yogurt or a probiotic. clindamycin HCl 150 mg capsule 450 mg PO TID 10 Days Qty: 90 0RF Discharge Instructions Additional Instructions: Please follow-up with podiatry as scheduled on Tuesday. Continue taking your medications as prescribed, especially as the antibiotic. Continue with daily wound care by home health nursing. A blood culture has been redrawn. Your labs today were overall reassuring, we will call you with the results of the culture results. Return to emergency care for develop new fever/chills, general malaise, increasing pain in your foot, increasing swelling/redness in your foot/leg, or if you are very worried and need to be rechecked again immediately HPI General Date/Time Provider Initiated Documentation: 12/31/23 18:28. HPI Narrative: Maurice is a 63-year-old male with history of T2DM, HTN, HLD, CHF, CAD and ESRD on dialysis 3 times a week who presents to the emergency department for evaluation after blood cultures drawn on 12/27 grew gram positive cocci. He was diagnosed with osteomyelitis of the R 5th toe. He was not determined to be a candidate for emergent surgery [place] [facility] [place] home on PO ciprofloxacin with close f/u with DR Uribe, podiatry at [facility] (appt Tuesday). He reports he feels great, denies fever/chills, general malaise, nausea/vomiting, abd discomfort, diarrhea, or change in R foot pain (described as a throbbing rated 7/10). As he is blind, he is not sure if toe looks better or worse than before. Home health comes daily for wound care. Has been taking medications, including abx as prescribed. Physical exam remarkable for ecchymosis/necrosis to right fifth digit, with mild erythema noted on the dorsum of the foot extending up the foot with faint edema. Does have a shallow healing ulceration on the plantar aspect of the foot under the MTP which has been treated by podiatry. Easy work of breathing, lung sounds clear bilaterally. Normal heart sounds. Patient is alert and oriented, no acute distress As patient had positive blood cultures, redrew CBC and BMP. Creatinine is elevated, consistent with patient with ESRD on dialysis. No acute electrolyte derangements. CBC unremarkable, no leukocytosis. Blood cultures redrawn, awaiting results. No indication at this time indicating worsening of infection/need for hospitalization. Patient has an appointment on Tuesday with podiatry. Recommend continued daily home health visits, home antibiotics, and monitoring for new/worsening symptoms. Maurice is agreeable with plan of care. Related Data Home Medications ?Medication ?Instructions ?Recorded ?Confirmed lancets 28 gauge #400 ea 08/18/12 12/28/23 needle (disp) 21 G 21 gauge x 1 ##100 08/31/12 12/28/2305/03 (BD Regular Bevel Wilson) pen needle, diabetic 31 gauge x ##100 11/15/13 12/28/23/ blood sugar diagnostic (Blood #400 strips 12/05/13 12/28/23 Glucose Test strips) sevelamer carbonate 800 mg tablet 800 mg PO TID 04/27/19 12/28/23 (Renvela) sertraline 50 mg tablet 50 mg PO DAILY 03/11/20 12/28/23 fluticasone propionate 50 1 spray intranasal BID 11/11/20 12/28/23 mcg/actuation nasal spray,suspension (Flonase Allergy Relief) gabapentin 300 mg capsule 300 mg PO TID 03/17/22 12/28/23 Oxygen 05/14/22 12/28/23 albuterol sulfate 90 mcg/actuation 2 puff inhalation Q6H PRN 06/11/22 12/28/23 aerosol inhaler (Ventolin HFA) shortness of breath or wheezing #8.5 grams fluticasone furoate 100 1 inh inhalation DAILY #60 ea 06/11/22 12/28/23 mcg-vilanterol 25 mcg/dose inhalation powder (Breo Ellipta) insulin aspart U-100 100 unit/mL 16 unit subcut DIRECTED 09/01/22 12/28/23 (3 mL) subcutaneous pen (Novolog FlexPen U-100 Insulin aspart) albuterol sulfate 90 mcg/actuation 2 puff inhalation Q6H PRN 05/03/23 12/28/23 aerosol inhaler (Ventolin HFA) amlodipine 10 mg tablet 10 mg PO DAILY 05/03/23 12/28/23 diclofenac sodium 1 % topical gel 2 g topical QID 05/03/23 12/28/23 (Aleve (diclofenac)) inhalational spacing device 05/03/23 12/28/23 (EasiVent Holding Chamber) tamsulosin 0.4 mg capsule 0.4 mg PO DAILY 05/03/23 12/28/23 aspirin 325 mg tablet 180 mg PO DAILY 11/17/23 12/28/23 atorvastatin 40 mg tablet (Lipitor) 40 mg PO HS 11/17/23 12/28/23 bumetanide 2 mg tablet 2 mg PO BID 11/17/23 12/28/23 insulin glargine 100 unit/mL (3 60 unit subcut HS 12/12/23 12/28/23 mL) subcutaneous pen (Basaglar KwikPen U-100 Insulin) ketoconazole 2 % topical cream 1 applic topical DAILY #120 grams 12/12/23 12/28/23 clindamycin HCl 150 mg capsule 450 mg (3 x 150 mg) PO TID 10 days 12/28/23 #90 caps clindamycin HCl 150 mg capsule 450 mg (3 x 150 mg) PO TID 12/28/23 Cellulitis 10 days #90 caps Previous Rx's ?Medication ?Instructions ?Recorded albuterol sulfate 90 mcg/actuation 2 puff inhalation Q6H PRN 06/11/22 aerosol inhaler (Ventolin HFA) shortness of breath or wheezing #8.5 grams fluticasone furoate 100 1 inh inhalation DAILY #60 ea 06/11/22 mcg-vilanterol 25 mcg/dose inhalation powder (Breo Ellipta) ketoconazole 2 % topical cream 1 applic topical DAILY #120 grams 12/12/23 clindamycin HCl 150 mg capsule 450 mg (3 x 150 mg) PO TID 10 days 12/28/23 #90 caps clindamycin HCl 150 mg capsule 450 mg (3 x 150 mg) PO TID 12/28/23 Cellulitis 10 days #90 caps Allergies Allergy/AdvReac Type Severity Reaction Status Date / Time ciprofloxacin Allergy Intermediate rash from Verified 12/31/23 16:47 IV General Stated Complaint: Cellulitis ABBIE: 3 Review of Systems Narrative: see HPI Exam Const General: cooperative, healthy appearing, comfortable, no acute distress, well developed and well groomed Nutritional Appearance: overweight Resp Effort & Inspection: normal respiratory effort and able to speak in complete sentences Auscultation: clear to auscultation bilaterally Cardio Rate: regular rate Rhythm: regular rhythm Pulses: dorsalis pedis present Extrem Right lower extremity: foot Details: tenderness (base of 5th toe), edema Location: of the dorsal foot, ecchymosis (5th toe) and other (ulcer noted to plantar aspect of foot proximal to 1st MTP) Course Vital Signs Vital signs: Vital Signs Temperature 35.8 C L 12/31/23 16:39 Pulse 88 12/31/23 16:39 Respiratory Rate 16 12/31/23 16:39 Blood Pressure 172/50 H 12/31/23 16:39 Pulse Oximetry 96 12/31/23 16:39 Temperature 35.8 C L 12/31/23 16:39 Pulse 88 12/31/23 16:39 Respiratory Rate 16 12/31/23 16:39 Blood Pressure 172/50 H 12/31/23 16:39 Pulse Oximetry 96 12/31/23 16:39 Oxygen Delivery Method Room Air 12/31/23 16:39 Oxygen Flow Rate 0 12/31/23 16:39 Pain Level 7 12/31/23 16:39 Comment throbbing pain 12/31/23 16:39 Lab/Test Results Lab/Test Results: 12/31/23 16:49 Blood Blood Culture - Pending 12/31/23 16:49 Blood Blood Culture - Pending Medical Decision Making Quality:SDOH Health Related Social Needs: No Data to Display PFSH All Active Problems (Updated 12/31/23 @ 18:29 by Hayley Flores) Cellulitis and abscess of foot (Acute) Pain in right foot (Acute) Ulcer of right foot with fat layer exposed (Acute) Chronic rhinitis (Acute) Respiratory failure with hypoxia (Acute) Bronchiectasis (Acute) Restrictive lung disease (Acute) Arthritis (Acute) Back, Hand Blindness, one eye (Acute) Arteriovenous fistula of left upper extremity (Acute) Dependence on hemodialysis (Acute) Finger pain (Acute) Anterior displaced fracture of sternal end of left clavicle, initial encounter for closed fracture (Acute) TBI (traumatic brain injury) (Acute) Lower back pain (Acute) Allergic rhinitis (Acute) Osteoporosis (Chronic) Tremor (Acute) Severe sleep apnea (Acute) Memory impairment (Acute) Hypoxia (Acute) Scarring of lung (Acute) Premature ventricular beat (Acute) Corns and callosities (Acute) Nail dystrophy (Acute) No-show for appointment (Acute) Secondary adhesive capsulitis of right shoulder (Acute) Trigger finger, right ring finger (Acute) Injection: 04/30/2019 Trigger finger, left middle finger (Acute) Colorectal polyps (Acute ~01/22/19) hyperplastic polyps Medical History Hx of pancreatitis Blind right eye Heart disease Depression Hyperlipidemia HTN (hypertension) Diabetic retinopathy Type 2 diabetes mellitus ESRD (end stage renal disease) AV fistula for hemodialysis CHF (congestive heart failure) Anxiety with depression Coronary arteriosclerosis Arteriovenous fistula lt arm Surgical History S/P eye surgery S/P CABG (coronary artery bypass graft) Open Carpal Tunnel release (~2001) b/l Arthroplasty of knee (~1973) per pt knee arthroscopy not a TKA! Family History Father Heart disease Diabetes Mother Diabetes Renal disease Brother , from cardiac disease in his 50's Heart disease Social History Smoking/Tobacco Use Status: Former Tobacco Use Quit Date: 05/02/97 Pack-years: 15 Smoking risk assessment performed?: Yes Alcohol Intake: former Drug use: Current Sobriety Substance use type: marijuana Details: marijuana in the 70's Household members: spouse and children Housing: house Number of Children: 1 current occupation: Disabled Current gender identity: male What is your relationship status?: Panel score (0-1 are the most socially isolated patients): 1 What type of physical activity do you participate in: other Details: under desk qubi Seatbelt use: always Do you feel safe at home: Yes Do you feel safe in your relationship?: Yes
--- OUTSIDE RECORDS SUMMARY | 2023-12-31 17:01 | XMS_ITS ---
Author Name Evonne, Clinic Address [address] [place] [address] Phone [phone] Organization [facility] e, NA DOCUMENT DISCLAIMER Multiple document versions may exist, please be sure you review the latest version. The information in the [facility] [place] Continuity of Care Document represents a summary [...] of Caregiver Requires some assistance Laundry 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 [facility] Characteristics of Home environment Housing Status Patient Resides With and Son MEDICATIONS Prescribed Medications for Dialysis Treatments Medication Instructions Dosage Route Start Date End Date Status Heparin Sodium (Porcine) 1,000 Units/mL Systemic Bolus, Every Treatment, Total treatment minutes 240 8000 units Intravenous - push September 23, 2023 September 21, 2024 Active Vitamin D (Calcitriol) Oral Every Treatment 0.75 mcg Oral December 29, 2022 December 28, 2023 Active Vitamin D (Calcitriol) Oral Every Treatment 0.75 mcg Oral December 30, 2023 December 28, 2024 Active Mircera During Dialysis, Every 2 weeks 150 mcg Intravenous - push December 02, 2023 November 30, 2024 Discontinued Home Medications Medication Instructions Dosage Route Start [...] Sign Value Date / Time Blood Pressure-sitting 119/54 mmHg November 06:44 AM Blood Pressure-standing 128/66 mmHg December 022023 06:44 AM Heart Rate 86 beats per minute December 29 06:44 AM Respiratory Rate 16 breaths per minute November 06:44 AM Temperature 97.6 deg. F December 30, 2023 06:44 AM Weight Vital Sign Value Date / Time Estimated Dry Weight 100 kg November 13 11:59 PM Pre-Dialysis 103.60 kg December 30, 2023 06:44 AM Post-Dialysis 100.00 kg December 30, 2023 06:44 AM Other Other Value Date / Time Height 163 cm July 01, 2022 2:00 AM [facility]ALTH [facility]NS Tuberculosis Testing TST Date [...] % 19.0 - 48.0 % Low October 02, 024 Neutrophils 74.3 % 40.0 - 75.0 % - October 02 024 Platelets 121 1000/mcL 130 - 400 1000/mcL [...] ng/mL 22 - 322 ng/mL High October 09, 024 Hemoglobin x 3 30.0 % 42.0 - [...] 54.0 % Low October Hemoglobin x 3 28.8 % 42.0 - [...] Lymphocytes 15.8 % 19.0 - 48.0 % December 05, 2023 Monocytes 6.7 % 3.0 - 10.0 % - December 04 024 Neutrophils 64.4 % 40.0 - 75.0 % - December 05, 2023 Hemoglobin x 3 30.6 % 42.0 - 54.0 % Low December 12, 2023 HGB 10.2 g/dL 14.0 - 18.0 g/dL November 302023 HGB 10.7 g/dL 14.0 - 18.0 g/dL November 302023 Hemoglobin x 3 32.1 % 42.0 - 54.0 % December 19, 2023 HGB 11.1 g/dL 14.0 - 18.0 g/dL December 012023 Hemoglobin x 3 33.3 % [...] 6 - 19 mg/dL High December 04, 2 024 Bicarbonate 24 mEq/L 22 - 29 [...] 62 0 - 54 High October 30, 2 024 PTH-Intact, Plasma 449 pg/mL 16 - [...] Nov Ca x P Product 45 0 54 - December 05, 2023 Phosphorus 5.1 mg/dL 2.6 - 4.5 mg/dL High November Calcium, Total 8.9 mg/dL 8.4 - 10.2 mg/dL - 2023 Calcium, Total 8.5 mg/dL 8.4 - 10.2 mg/dL - 2023 Calcium, Total 8.2 mg/dL 8.4 - 10.2 mg/dL Low Nov 2023 Calcium, Total 8.5 mg/dL 8.4 - 10.2 mg/dL - [facility] 2023 Liver/Nutrition Result Type Result Value Relevant Reference Range Interpre tation Date eNPCR 1.06 No Reference Range Provided - October 03, 2023 Albumin (BCG) 3.9 g/dL 3.5 - 5.2 g/dL - September Glucose 272 mg/dL 70 - 100 mg/dL High October 09, 024 Albumin (BCG) 4.3 g/dL 3.5 - [...] 12, 2021 0.25 m L Intramuscular Completed [id number] November 16, 2017 40.0 mcg Intramuscular Com pleted [id number] July 20, 2017 40.0 mcg Intramuscular Co mpleted [id number] June 22, 2017 40.0 mcg Intramuscular Completed [id number] May 20, 2017 40.0 mcg Intramuscular Completed TRANSPLANT WAITLIST STATUS No Information on Transplant Waitlist Status ADVANCE DIRECTIVES Directive Description Ordered By Effective Date Resuscitation status Full Code Too Sheehansimin September 22, 2023 DIALYSIS TREATMENTS Conventional Hemodialysis Date Pre-Treatment Vitals Post-Treatment Laura ls Duration (hr) BFR (mL/min) Dialysate Dialyzer Dialysis Access Meds Admin Augus t 26, 2024 Weight 105.00 kg Weight 101.30 kg 04:25:00 420 2.0 K, 2.5 Ca, 1.0 Mg, 100 Dextrose (G2251) 180nre Optifl ux Blood Pressure-sitting 165/72 mmHg Blood Pressure-sit ting [...] 97.4 deg. F Temperature 98.2 deg. F December 30, 2023 Weight 103.60 kg Weight 100.00 kg 04:04:00 430 2.0 K, 2.5 Ca, 1.0 Mg, 100 Dextrose (G2251) 180nre Optiflux Hemodialysis-AV Fistula-Standard, Left Forearm, Radial Artery to Cephalic Vein Access Placed on April 13, 2017 Heparin Sodium (Porcine) 1,000 Units/mL Systemic; 8000units,Intravenous - push Vitamin D (Calcitriol) Oral; 0.75mcg,Oral Blood Pressure-sitting 161/73 mmHg Blood Pressure-sit ting 119/54 mmHg Blood Pressure-standing 148/59 mmHg Blood Pressure-st anding 128/66 mmHg Heart Rate 92 beats per minute Heart Rate 86 beats per minute Respiratory Rate 16 breaths per minute Respiratory Rate 16 breaths per minute Temperature 97.4 deg. F Temperature 97.6 deg. F
--- OUTSIDE RECORDS SUMMARY | 2023-12-31 17:02 | XMS_ITS | Encounter Summary ---
Author Organization [facility] [place] [address] Care Team Providers Care Ring Striker Name Role Phone Kimani Leger MD Primary Care Provider [phone] Reason for Referral * Consultation (Routine) - Authorized Specialty Diagnoses / Procedures Referred By Puneet hallman Referred To Contact Ophthalmology Diagnoses Type 2 diabetes mellitus with retinopathy without macular edema, unspecified laterality, unspecified retinopathy severity, unspecified whether fdc insulin use Kimani Leger MD [address] [place] [address] [place] [place] [address] Gudelia Carter OD [facility] [place] [address] Referral ID Status Reason Start Date Expiration Date Visits Requested Visits Authorized [id number] Authorized Consult, Test & Treat PCP Updated and/or Approved 08/15/2023 08/14/2024 6 6 Encounter Details Date Type Department Care Team (Latest Contact Info) Description 08/15/2023 Transcribe Orders eDH Incoming Referrals [phone] Kimani Leger MD [address] [place] [address] Type 2 diabetes mellitus with retinopathy without macular edema, unspecified laterality, unspecified retinopathy severity, unspecified whether fdc insulin use Social History Tobacco Use Types [...] unspecified laterality, unspecified retinopathy severity, unspecified whether fdc insulin use Ordered: 08/15/2023 documented as of this encounter Visit Diagnoses Diagnosis Type 2 diabetes mellitus with retinopathy without macular edema, unspecified laterality, unspecified retinopathy severity, unspecified whether fdc insulin use documented in this encounter Care Teams Ring Striker Relationship Specialty Start Date End Date Kimani Leger MD [address] [place] [address] PCP - General Family Medicine 02/10/21 documented as of this encounter
--- OUTSIDE RECORDS SUMMARY | 2023-12-31 17:02 | XMS_ITS | Encounter Summary ---
Author Organization [facility]ly [facility] [place] [address] Care Team Providers Care Fraud Analyst Name Role Phone Kimani Leger MD Primary Care Provider [phone] Reason for Visit * Reason Comments PDR * Consultation (Routine) - Closed Specialty Diagnoses / Procedures Referred By Puneet hallman Referred To Contact Ophthalmology Diagnoses Type 2 diabetes mellitus with unspecified diabetic retinopathy without macular edema Kimani Leger MD [address] [place] [address] [place] [address] Harmeet Arvizu MD [facility] [place] [place] [address] Referral ID Status Reason Start Date Expiration Date V isits Requested Visits Authorized [id number] Closed Consult, Test & Treat [facility] PCP Updated and/or Approved 01/28/2021 07/28/2021 6 6 Encounter Details Date Type Department Care Team (Latest Contact Info) Description 06/08/2021 12:15 PM EST Office [place] [address] Harmeet Arvizu MD [facility] [place] [address] Proliferative diabetic retinopathy of left eye with [...] category documented in this encounter Care Teams Fraud Analyst Relationship Specialty Start Date End Date Kimani Leger MD [address] [place] [address] PCP - General Family Medicine 02/10/21 documented as of this encounter
--- OUTSIDE RECORDS SUMMARY | 2023-12-31 17:02 | XMS_ITS | Encounter Summary ---
[place] [address] Care Team Providers Care Gypsum Block Setter Name Role Phone Kimani Leger MD Primary Care Provider [phone] Encounter Details Date Type Department Care Team (Late st Contact Info) Description 01/18/2022 1:30 PM EDT [place] [address] Eliot Rviers MD [facility] DR ANESTHESI[place] [address] Johanna Green [place] [address] Anesthesia Record Procedure Summary Procedure Name Responsible [...] AV Fistula Evaluations 06/17/2020 Kimani Larson MD [facility] INTERVENTIONL RAD ??? IR DIALYSIS ACCESS - AV FISTULA EVALUATIONS 11/04/2020 IR Dialysis Access - AV Fistula Evaluations 11/04/2020 Kimani Larson MD [facility] INTERVENTIONL RAD ??? PERIPHERAL IRIDOTOMY 04/06/2012 OD Sw[facility] ??? PRO EXTRACAPSULAR CATARACT RMVL INSERTION IO LENS PROSTH CPLX WO ECP 07/18/2012 ??? PRO EXTRACAPSULAR CATARACT RMVL INSERTION IO LENS PROSTH W/O ECP 11/29/2012 CATARACT EXTRACTION, EXTRACAPSULAR, W/ LENS INSERTION performed by rEasmo Bajwa MD at [facility] OSC ? ? PRO REPAIR COMPLEX RETINA DETACH VITRECTOMY & MEMB PEEL 04/03/2012, 04/03/12 REPAIR COMPLEX RETINAL DETACHMENT, W/ VITRECTOMY, MEMBRANE PEELING performed by Matteo Diane MD at [facility] MAIN OR ? ? PRO REPAIR COMPLEX RETINA DETACH VITRECTOMY & MEMB PEEL 07/31/2012 REPAIR COMPLEX RETINAL DETACHMENT, W/ VITRECTOMY, MEMBRANE PEELING performed by Matteo Diane MD at [facility] MAIN OR ? ? PRO REPAIR COMPLEX RETINA DETACH VITRECTOMY & MEMB PEEL 01/08/2013 REPAIR COMPLEX RETINAL DETACHMENT, W/ VITRECTOMY, MEMBRANE PEELING performed by Matteo Diane MD at [facility] MAIN OR ??? PRO TX EXTENSIVE [...] on filedocumented in this encounter Care Teams Gypsum Block Setter Relationship Specialty Start Date End Date Kimani Leger MD [address] [place] [address] PCP - General Family Medicine 02/10/21 documented as of this encounter
--- OUTSIDE RECORDS SUMMARY | 2023-12-31 17:02 | XMS_ITS | Encounter Summary ---
[place] [address] Care Team Providers Care Chef Broiler Or Fry Name Role Phone Jarad Keller DNP Primary Care Provider [phone] Encounter Details Date Type Department Care Team (Late st Contact Info) Description 01/29/2021 Telephone [place] [address] Cherelle Colvin RN Social History Tobacco Use [...] 9:32 AM EDT I spoke with [facility]. They confirmed Maurice's mailing address as [...] on filedocumented in this encounter Care Teams Chef Broiler Or Fry Relationship Specialty Start Date End Date Jarad Keller DNP PCP - General Family Medicine 06/05/18 02/09/21 documented as of this encounter
--- OUTSIDE RECORDS SUMMARY | 2023-12-31 17:02 | XMS_ITS | Encounter Summary ---
[place] [address] Care Team Providers Care Java J2Ee Application Developer Name Role Phone Jarad Keller DANIKA Primary Care Provider [phone] Encounter Details Date Type Department Care Team (Late st Contact Info) Description 12/08/2020 Telephone [place] [address] Sherie Mccallum, [place] [facility] [place] [address] Social History Tobacco Use Types Packs/Day Years [...] on filedocumented in this encounter Care Teams Java J2Ee Application Developer Relationship Specialty Start Date End Date Jarad Keller DNP PCP - General Family Medicine 06/05/18 02/09/21 documented as of this encounter
--- OUTSIDE RECORDS SUMMARY | 2023-12-31 17:02 | XMS_ITS | Encounter Summary ---
[place] [address] Care Team Providers Care Line Walker Name Role Phone Jarad Keller DANIKA Primary Care Provider [phone] Encounter Details Date Type Department Care Team (Late st Contact Info) Description 11/27/2020 Telephone [place] [address] Sherie Mccallum, [address] [facility] [address] TRANSPLANT [place] [address] Social History Tobacco Use Types Packs/Day Years [...] on filedocumented in this encounter Care Teams Line Walker Relationship Specialty Start Date End Date Jarad Keller DNP PCP - General Family Medicine 06/05/18 02/09/21 documented as of this encounter
--- OUTSIDE RECORDS SUMMARY | 2023-12-31 17:02 | XMS_ITS | Encounter Summary ---
Author Organization [facility] [place] [address] Care Team Providers Care Director Professional Services Name Role Phone Kimani Leger MD Primary Care Provider [phone] Encounter Details Date Type Department Care Team (Late st Contact Info) Description 02/25/2023 Tele[place] [address] Too Morgan MD [facility] [place] [address] Social History Tobacco Use Types Packs/Day Years [...] filedocumented in this encounter Care Teams Director Professional Services Relationship Specialty Start Date End Date Kimani Leger MD [address] [place] [address] PCP - General Family Medicine 02/10/21 documented as of this encounter
--- OUTSIDE RECORDS SUMMARY | 2023-12-31 17:02 | XMS_ITS | Encounter Summary ---
[place] [address] Care Team Providers Care Money Counter Name Role Phone Kimani Leger MD Primary Care Provider Encounter Details Date Type Department Care Team (Late st Contact Info) Description 09/07/2023 Notes Only [place] [address] Nettie Davis APRN [facility] [place] [address] Social History Tobacco Use Types Packs/Day Years [...] time. Nettie Davis APRN Nephrology/Hypertension Pager # [phone] documented in this encounter Plan of Treatment Not on file documented as of this encounter Visit Diagnoses Not on filedocumented in this encounter Care Teams Money Counter Relationship Specialty Start Date End Date Kimani Leger MD [address] [place] [address] PCP - General Family Medicine 02/10/21 documented as of this encounter
--- OUTSIDE RECORDS SUMMARY | 2023-12-31 17:02 | XMS_ITS | Encounter Summary ---
[place] [address] Care Team Providers Care Jumpbasting Armhole Baster Name Role Phone Kimani Leger MD Primary Care Provider [phone] Encounter Details Date Type Department Care Team (Late st Contact Info) Description 12/28/2023 6:45 PM EDT Ancillary Procedure [place] [address] Bradford Momin MD [facility] [place] [address] Arrived Social History Tobacco Use Types Packs/Day Years [...] Diagnosis Comments FILM LIBRARY STORAGE ONLY CT LOWER EXTREMITY Routine 12/28/2023 6:37 PM EDT documented in this encounter Results * Film Library- Storage Only CT Lower Extremity (12/28/2023 6:37 PM EDT) Narrative [facility] - 12/28/2023 6:37 PM EDT This exam is auto-finalizing. It's purpose is for storage only. Bradford Momin MD IMG FILM LIBRARY ORD ERABLES Performing Organization Address City/State/[facility] Co de Phone Number [place], [place] documented in this encounter Visit Diagnoses Not on filedocumented in this encounter Care Teams Jumpbasting Armhole Baster Relationship Specialty Start Date End Date Kimani Leger MD [address] [place] [address] PCP - General Family Medicine 02/10/21 documented as of this encounter
--- OUTSIDE RECORDS SUMMARY | 2023-12-31 17:02 | XMS_ITS | Encounter Summary ---
[place] [address] Care Team Providers Care Perforator Operator Name Role Phone Kimani Leger MD Primary Care Provider [phone] Encounter Details Date Type Department Care Team (Late st Contact Info) Description 08/12/2022 6:20 PM EDT Ancillary Procedure [place] [address] [place] [address] Social History Tobacco Use Types Packs/Day Years [...] FILM LIBRARY ORD ERABLES Performing Organization Address City/State/[facility] Co de Phone Number [place], [place] documented in this encounter Visit Diagnoses Not on filedocumented in this encounter Care Teams Perforator Operator Relationship Specialty Start Date End Date Kimani Leger MD [address] [place] [address] PCP - General Family Medicine 02/10/21 documented as of this encounter
--- OUTSIDE RECORDS SUMMARY | 2023-12-31 17:02 | XMS_ITS | Encounter Summary ---
Author Organization [facility] [place] [address] Care Team Providers Care Systems Development Manager Name Role Phone Kimani Leger MD Primary Care Provider [phone] Encounter Details Date Type Department Care Team (Latest Contact Info) Description 01/25/2022 6:10 AM EDT - 01/25/2022 12:21 PM EDT Hospital Encounter [place] [address] Jose Light MD [facility] [place] [address] Discharge Disposition: Home Social History Tobacco Use [...] Khan RN - 01/25/2022 10:02 AM EDT [facility] Vascular and Interventional Radiology Discharge Instructions [...] is during regular office hours, please call [phone]. If it is after regular office hours, or on weekends or holidays, please call [phone] and ask to speak to the Driver Lifter Of Sanitation Truck sap ariba consultant for Interventional Radiology. You have received medication [...] time. Pt discharged home via ride service, [facility]. Linda GIMENEZ documented in this encounter Plan of Treatment Not on file documented as of this encounter Procedures Procedure Name Priority Date/Time Associated Diagnosis Comments FISTULAGRAM 01/25/2022 7:46 AM EDT ESRD HC POTASSIUM Routine 01/25/2022 7:17 AM EDT POCT GLUCOSE Routine 01/25/2022 6:39 AM EDT documented in this encounter Results * Potassium (01/25/2022 7:17 AM EDT) Potassium 4.2 3.5 - 5.0 mmol/L [facility] Comment: Please note: ??Patients with WBC >100,000 may have falsely elevated Potassium levels. ??For accurate Potassium quantification in these patients send serum separator tube (gold top) for subsequent determinations. ??Contact the Clinical Chemistry Laboratory if there are any questions. Blood 01/25/2022 7:17 AM EDT 01/25/2022 7:25 AM EDT Narrative Resulting Agency Comment Spec In Lab Johanna Green APRN CHEMISTRY ORDERABL ES [facility] [place] [place] [address] * POCT Glucose (01/25/2022 6:39 AM EDT) Glucose, POC 178 65 - 199 mg/dL [facility] Comment: Supplemental ranges: <140 mg/dL before meals <180 mg/dL all other times of the day Blood 01/25/2022 6:39 AM EDT 01/25/2022 6:39 AM EDT Jose Light MD POINT OF CARE TEST O RDERABLES [facility] [place] [address] documented in this encounter Visit Diagnoses Not [...] of Surgery (Day of Procedure) 0725 ([facility] - Prov ider: Mimi Cole RN) documented in this encounter Care Teams Systems Development Manager Relationship Specialty Start Date End Date Kimani Leger MD [address] [place] [address] PCP - General Family Medicine 02/10/21 documented as of this encounter
--- OUTSIDE RECORDS SUMMARY | 2023-12-31 17:02 | XMS_ITS | Encounter Summary ---
Author Organization [facility] [place] [address] Care Team Providers Care Rn Spine Name Role Phone Kimani Leger MD Primary Care Provider [phone] Encounter Details Date Type Department Care Team (Late st Contact Info) Description 12/23/2021 [place] [address] [facility] [place] [address] Social History Tobacco Use Types Packs/Day Years [...] to AV anastomosis, resolved with 7 mm SCIENTIFIC RESEARCH MANAGER. ?? 3. Coil from prior intervention at [...] AV Fistula Evaluations 06/17/2020 Kimani Larson MD [facility] INTERVENTIONL RAD ??? IR DIALYSIS ACCESS - AV FISTULA EVALUATIONS 11/04/2020 IR Dialysis Access - AV Fistula Evaluations 11/04/2020 Kimani Larson MD [facility] INTERVENTIONL RAD ??? PERIPHERAL IRIDOTOMY 04/06/2012 OD [facility] ??? PRO EXTRACAPSULAR CATARACT RMVL INSERTION IO LENS PROSTH CPLX WO ECP 07/18/2012 ??? PRO EXTRACAPSULAR CATARACT RMVL INSERTION IO LENS PROSTH W/O ECP 11/29/2012 CATARACT EXTRACTION, EXTRACAPSULAR, W/ LENS INSERTION performed by Erasmo Bajwa MD at [facility] OSC ? ? PRO REPAIR COMPLEX RETINA DETACH VITRECTOMY & MEMB PEEL 04/03/2012, 04/03/12 REPAIR COMPLEX RETINAL DETACHMENT, W/ VITRECTOMY, MEMBRANE PEELING performed by Matteo Diane MD at [facility] MAIN OR ? ? PRO REPAIR COMPLEX RETINA DETACH VITRECTOMY & MEMB PEEL 07/31/2012 REPAIR COMPLEX RETINAL DETACHMENT, W/ VITRECTOMY, MEMBRANE PEELING performed by Matteo Diane MD at [facility] MAIN OR ? ? PRO REPAIR COMPLEX RETINA DETACH VITRECTOMY & MEMB PEEL 01/08/2013 REPAIR COMPLEX RETINAL DETACHMENT, W/ VITRECTOMY, MEMBRANE PEELING performed by Matteo Diane MD at [facility] MAIN OR ??? PRO TX [...] on filedocumented in this encounter Care Teams Rn Spine Relationship Specialty Start Date End Date Kimani Leger MD [address] [place] [address] PCP - General Family Medicine 02/10/21 documented as of this encounter
--- OUTSIDE RECORDS SUMMARY | 2023-12-31 17:02 | XMS_ITS | Encounter Summary ---
[place] [address] Care Team Providers Care Line Driver Name Role Phone Jarad Keller DNP Primary Care Provider [phone] Encounter Details Date Type Department Care Team (Late st Contact Info) Description 11/14/2020 Tele[place] [address] Tracie Wild Social History Tobacco Use Types [...] filedocumented in this encounter Care Teams Line Driver Relationship Specialty Start Date End Date Jarad Keller DNP PCP - General Family Medicine 06/05/18 02/09/21 documented as of this encounter
--- OUTSIDE RECORDS SUMMARY | 2023-12-31 17:02 | XMS_ITS | Encounter Summary ---
[place] [address] Care Team Providers Care General Farm Manager Name Role Phone Kimani Leger MD Primary Care Provider [phone] Encounter Details Date Type Department Care Team (Late st Contact Info) Description 12/28/2023 6:40 PM EDT Ancillary Procedure [place] [address] Bradford Momin MD [facility] [place] [address] Arrived Social History Tobacco Use Types Packs/Day [...] Diagnosis Comments FILM LIBRARY STORAGE ONLY DX FOOT Routine 12/28/2023 6:35 PM EDT documented in this encounter Results * Film Library- Storage Only DX Foot (12/28/2023 6:35 PM EDT) Narrative RAD - 12/28/2023 6:35 PM EDT This exam is auto-finalizing. It's purpose is for storage only. Bradford Momin MD IMG FILM LIBRARY ORD ERABLES Performing Organization Address City/State/[facility] Co de Phone Number [place], [place] documented in this encounter Visit Diagnoses Not on filedocumented in this encounter Care Teams General Farm Manager Relationship Specialty Start Date End Date Kimani Leger MD [address] [place] [address] PCP - General Family Medicine 02/10/21 documented as of this encounter
--- OUTSIDE RECORDS SUMMARY | 2023-12-31 17:02 | XMS_ITS | Encounter Summary ---
Author Organization [facility] [place] [address] Care Team Providers Care Chief Talent Officer Name Role Phone Kimani Leger MD Primary Care Provider [phone] Reason for Visit * Reason Comments Medication Refill Encounter Details Date Type Department Care Team (Late st Contact Info) Description 06/08/2021 Refill Neph[place] [address] Too Morgan MD [facility] [place] [address] Social History Tobacco Use Types Packs/Day Years [...] on filedocumented in this encounter Care Teams Chief Talent Officer Relationship Specialty Start Date End Date Kimani Leger MD [address] [place] [address] PCP - General Family Medicine 02/10/21 documented as of this encounter
--- OUTSIDE RECORDS SUMMARY | 2023-12-31 17:02 | XMS_ITS | Encounter Summary ---
[place] [address] Care Team Providers Care Store Group Manager Name Role Phone Kimani Leger MD Primary Care Provider [phone] Encounter Details Date Type Department Care Team (Late st Contact Info) Description 09/20/2023 Telephone [place] [address] Lian Card MD [facility] [place] [address] Social History Tobacco Use Types Packs/Day Years [...] on filedocumented in this encounter Care Teams Store Group Manager Relationship Specialty Start Date End Date Kimani Leger MD [address] [place] [address] PCP - General Family Medicine 02/10/21 documented as of this encounter
--- OUTSIDE RECORDS SUMMARY | 2023-12-31 17:02 | XMS_ITS | Encounter Summary ---
[place] [address] Care Team Providers Care Email Marketing Intern Name Role Phone Kimani Leger MD Primary Care Provider [phone] Encounter Details Date Type Department Care Team (Late st Contact Info) Description 09/20/2023 7:15 PM EDT Ancillary Procedure [place] [address] Kimani Leger MD [facility] [place] [address] Social History Tobacco Use Types [...] FILM LIBRARY ORD ERABLES Performing Organization Address City/State/[facility] Co de Phone Number [place], [place] documented in this encounter Visit Diagnoses Not on filedocumented in this encounter Care Teams Email Marketing Intern Relationship Specialty Start Date End Date Kimani Leger MD [address] [place] [address] [address] [place] [address] PCP - General Family Medicine 02/10/21 documented as of this encounter
--- OUTSIDE RECORDS SUMMARY | 2023-12-31 17:02 | XMS_ITS | Encounter Summary ---
Author Organization [facility] [place] [address] Care Team Providers Care Personal Care Worker Name Role Phone Kimani Leger MD Primary Care Provider [phone] Encounter Details Date Type Department Care Team (Late st Contact Info) Description 04/20/2023 [place] [address] Too Morgan MD [facility] [place] [address] Social History Tobacco Use Types Packs/Day Years [...] on filedocumented in this encounter Care Teams Personal Care Worker Relationship Specialty Start Date End Date Kimani Leger MD [address] [place] [address] PCP - General Family Medicine 02/10/21 documented as of this encounter
--- OUTSIDE RECORDS SUMMARY | 2023-12-31 17:02 | XMS_ITS | Encounter Summary ---
[place] [address] Care Team Providers Care Clothing Busheler Name Role Phone Kimani Leger MD Primary Care Provider [phone] Reason for Referral * Diagnostic Test (Routine) - Closed Specialty Diagnoses / Procedures Referred By Puneet hallman Referred To Contact Radiology Diagnoses ESRD (end stage renal disease) Procedures IR Dialysis Access - AV Fistula Evaluations Simi Mcfadden APRN [facility] [place] [address] [place] [address] Referral ID Status Reason Start Date Expiration Date V isits Requested Visits Authorized [id number] Closed Specialty Service Requested 12/22/2021 06/24/2023 1 1 Reason for Visit * Diagnostic Test (Routine) - Closed Specialty Diagnoses / Procedures Referred By Puneet hallman Referred To Contact Radiology Diagnoses ESRD (end stage renal disease) Procedures IR Dialysis Access - AV Fistula Evaluations Simi Mcfadden APRN [facility] [place] [address] [facility] [place] [address] Referral ID Status Reason Start Date Expiration Date V isits Requested Visits Authorized [id number] Closed Specialty Service Requested 12/22/2021 06/24/2023 1 1 Encounter Details Date Type Department Care Team (Latest Contact Info) Description 01/25/2022 7:30 AM EDT - 01/25/2022 11:59 PM EDT Hospital [place] [address] Simi Mcfadden APRN [facility] [place] [address] ESRD (end stage renal disease) [...] in this encounter H&P Notes * Maurice Carerro MD - 01/25/2022 6:51 AM EDT INTERVENTIONAL [...] the AV anastomosis, resolved with 7 mm HIDE CLEANER. Additional 5 mm HIDE CLEANER of the AV anastomosis was performed. Plan: [...] a permanent image was stored. A 5 Malagasy sheath was placed. Access technique: Micropuncture set [...] Angioplasty balloon(s): 7 mm x 40 mm [place] Angioplasty of the juxta-anastomotic location was performed. Angioplasty balloon(s): 5 mm x 40 mm [place] Final fistulagram Final fistulagram was performed. Findings: [...] who have questions please contact the health career professional that requested your imaging first. ? Electronically signed by: Roderick Castillo MD, [facility] ([phone]), at 01/27/2022 7:26 AM Narrative 01/27/2022 7:26 [...] the AV anastomosis, resolved with 7 mm HIDE CLEANER. Additional 5 mm PTAof the AV anastomosis [...] a permanent image was stored. A 5 Malagasy sheath wasplaced. Access technique: Micropuncture set with [...] Angioplasty balloon(s): 7 mm x 40 mm [place] Angioplasty of the juxta-anastomotic location was performed. Angioplasty balloon(s): 5 mm x 40 mm [place] Final fistulagram Final fistulagram was performed. Findings: [...] patients who have questions please contactthe health career professional that requested your imaging first. Electronically signed by: Roderick Castillo MD, [facility]([phone]), at 01/27/2022 7:26 AM Simi Mcfadden TANKER SERVICEMAN IMG IR ORDERABLES documented in this encounter Visit Diagnoses Diagnosis ESRD (end stage renal disease) End stage renal disease documented in this encounter Care Teams Clothing Busheler Relationship Specialty Start Date End Date Kimani Leger MD [address] [place] [address] PCP - General Family Medicine 02/10/21 documented as of this encounter
--- OUTSIDE RECORDS SUMMARY | 2023-12-31 17:02 | XMS_ITS | Encounter Summary ---
[place] [address] Care Team Providers Care Merchandise Distributor Name Role Phone Kimani Leger MD Primary Care Provider [phone] Reason for Visit * Reason Onset Date Comments Appointment 06/09/2021 Encounter Details Date Type Department Care Team (Late st Contact Info) Description 06/09/2021 Telephone [place] [address] Harmeet Arvizu MD [facility] [place] [address] Appointment Social History Tobacco Use Types Packs/Day [...] send a letter * Telephone Encounter - Shanika Minaya - 06/09/2021 3:25 PM EST Left [...] on filedocumented in this encounter Care Teams Merchandise Distributor Relationship Specialty Start Date End Date Kimani Leger MD [facility] [place] [address] PCP - General Family Medicine 02/10/21 documented as of this encounter
--- OUTSIDE RECORDS SUMMARY | 2023-12-31 17:02 | XMS_ITS | Encounter Summary ---
Author Organization [facility] [place] [address] Care Team Providers Care Solderer Name Role Phone Jarad Keller DNP Primary Care Provider [phone] Encounter Details Date Type Department Care Team (Late st Contact Info) Description 11/04/2020 2:30 PM EDT - 11/04/2020 4:30 [place] [id number] Ceasar Gonzalez MD [facility] [place] [address] FISTULAGRAM Social History Tobacco Use Types Packs/Day [...] Morrow RN - 11/04/2020 4:35 PM EDT [facility] Vascular and Interventional Radiology Discharge Instructions [...] is during regular office hours, please call [phone]. If it is after regular office hours, or on weekends or holidays, please call [phone] and ask to speak to the Packing House Laborer monkey keeper for Interventional Radiology. You have received medication [...] * POCT Glucose (11/04/2020 1:59 PM EDT) [facility] Signature Glucose, POC 172 65 - 199 mg/dL [facility] Comment: Supplemental ranges: <140 mg/dL before meals <180 mg/dL all other times of the day Blood 11/04/2020 1:59 PM EDT 11/04/2020 1:59 PM EDT Ceasar Gonzalez MD POINT OF CARE TEST O RDERABLES Performing Organization Address City/[facility] Co de Phone Number [facility] [place] [address] * Potassium (11/04/2020 1:34 PM EDT) Potassium 3.9 3.5 - 5.0 mmol/L [facility] [...] Vanessa MD CHEMISTRY ORDERABLES Performing Organization Address [facility] Co de Phone Number [facility] [place] [address] documented in this encounter Visit Diagnoses Not on filedocumented in this encounter Active and Recently Administered Medications Care Teams Solderer Relationship Specialty Start Date End Date Jarad Keller DNP PCP - General Family Medicine 06/05/18 02/09/21 documented as of this encounter
--- OUTSIDE RECORDS SUMMARY | 2023-12-31 17:02 | XMS_ITS | Encounter Summary ---
Author Organization [facility] [place] [address] Care Team Providers Care Laboratory Animal Facility Supervisor Name Role Phone Kimani Leger MD Primary Care Provider [phone] Reason for Visit * Reason Comments Medication Refill Encounter Details Date Type Department Care Team ([facility] st Contact Info) Description 05/31/2021 Refill Nephrology [place] [address] Too Morgan MD [facility] [place] [address] Social History Tobacco Use Types Packs/Day Years [...] on filedocumented in this encounter Care Teams Laboratory Animal Facility Supervisor Relationship Specialty Start Date End Date Kimani Leger MD [address] [place] [address] PCP - General Family Medicine 02/10/21 documented as of this encounter
--- OUTSIDE RECORDS SUMMARY | 2023-12-31 17:02 | XMS_ITS | Encounter Summary ---
[place] [address] Care Team Providers Care Continuous Loft Operator Name Role Phone Kimani Leger MD Primary Care Provider [phone] Reason for Visit * Reason Onset Date Comments Follow-up 04/12/2023 Encounter Details Date Type Department Care Team (Late st Contact Info) Description 04/12/2023 [place] [address] [facility] DR [place] [address] Follow-up Social History Tobacco Use Types Packs/Day [...] on filedocumented in this encounter Care Teams Continuous Loft Operator Relationship Specialty Start Date End Date Kimani Leger MD [facility] [place] [address] PCP - General Family Medicine 02/10/21 documented as of this encounter
--- OUTSIDE RECORDS SUMMARY | 2023-12-31 17:02 | XMS_ITS | Encounter Summary ---
[place] [address] Care Team Providers Care Shoe Sticks Repairer Name Role Phone Kimani Leger MD Primary Care Provider [phone] Reason for Referral * Diagnostic Test (Routine) - Closed Specialty Diagnoses / Procedures Referred By Puneet hallman Referred To Contact Radiology Diagnoses ESRD (end stage renal disease) Procedures IR Dialysis Access - AV Fistula Evaluations Simi Mcfadden APRN [facility] [place] [address] [facility] [place] [address] Referral ID Status Reason Start Date Expiration Date V isits Requested Visits Authorized [id number] Closed Specialty Service Requested 12/22/2021 06/24/2023 1 1 Encounter Details Date Type Department Care Team ([facility] st Contact Info) Description 12/22/2021 Orders Only [place] [address] Simi Mcfadden APRN [facility] [place] [address] ESRD (end stage renal disease) Social History [...] the AV anastomosis, resolved with 7 mm TRAVEL SALES CONSULTANT. Additional 5 mm TRAVEL SALES CONSULTANT of the AV anastomosis was performed. Plan: [...] a permanent image was stored. A 5 Armenian sheath was placed. Access technique: Micropuncture set [...] Angioplasty balloon(s): 7 mm x 40 mm [place] Angioplasty of the juxta-anastomotic location was performed. Angioplasty balloon(s): 5 mm x 40 mm [place] Final fistulagram Final fistulagram was performed. Findings: [...] who have questions please contact the health lawn care technician that requested your imaging first. ? Electronically signed by: Roderick Castillo MD, [facility] ([phone]), at 01/27/2022 7:26 AM Narrative 01/27/2022 7:26 [...] the AV anastomosis, resolved with 7 mm TRAVEL SALES CONSULTANT. Additional 5 mm PTAof the AV anastomosis [...] a permanent image was stored. A 5 Armenian sheath wasplaced. Access technique: Micropuncture set with [...] Angioplasty balloon(s): 7 mm x 40 mm [place] Angioplasty of the juxta-anastomotic location was performed. Angioplasty balloon(s): 5 mm x 40 mm [place] Final fistulagram Final fistulagram was performed. Findings: [...] patients who have questions please contactthe health lawn care technician that requested your imaging first. Electronically signed by: Roderick Castillo MD, [facility]([phone]), at 01/27/2022 7:26 AM Simi Mcfadden YARN EXAMINER IMG IR ORDERABLES documented in this encounter Visit Diagnoses Diagnosis ESRD (end stage renal disease) End stage renal disease ESRD (end stage renal disease) End stage renal disease documented in this encounter Care Teams Shoe Sticks Repairer Relationship Specialty Start Date End Date Kimani Leger MD [address] [place] [address] PCP - General Family Medicine 02/10/21 documented as of this encounter
--- OUTSIDE RECORDS SUMMARY | 2023-12-31 17:02 | XMS_ITS | Encounter Summary ---
Author Organization [facility] [place] [place] [address] Care Team Providers Care Fur Matcher Name Role Phone Kimani Leger MD Primary Care Provider [phone] Encounter Details Date Type Department Care Team (Late st Contact Info) Description 01/17/2023 [place] [address] Too Morgan MD [facility] [place] [address] Social History Tobacco Use Types Packs/Day Years [...] on filedocumented in this encounter Care Teams Fur Matcher Relationship Specialty Start Date End Date Kimani Leger MD [address] [place] [address] PCP - General Family Medicine 02/10/21 documented as of this encounter
--- OUTSIDE RECORDS SUMMARY | 2023-12-31 17:02 | XMS_ITS | Encounter Summary ---
Author Organization [facility] [place] [address] Care Team Providers Care Collar Trimmer Name Role Phone Kimani Leger MD Primary Care Provider [phone] Encounter Details Date Type Department Care Team (Late st Contact Info) Description 01/25/2022 7:30 AM EDT - 01/25/2022 9:30 [place] [address] Jose Light MD [facility] DR [place] [address] FISTULAGRAM Social History Tobacco Use Types Packs/Day [...] Khan RN - 01/25/2022 10:02 AM EDT [facility] Vascular and Interventional Radiology Discharge Instructions [...] is during regular office hours, please call [phone]. If it is after regular office hours, or on weekends or holidays, please call [phone] and ask to speak to the Outbound Sales Specialist electronic calibration technician for Interventional Radiology. You have received medication [...] time. Pt discharged home via ride service, [facility]. Linda GIMENEZ documented in this encounter Plan of Treatment Not on file documented as of this encounter Procedures Procedure Name Priority Date/Time Associated Diagnosis Comments FISTULAGRAM 01/25/2022 7:46 AM EDT ESRD HC POTASSIUM Routine 01/25/2022 7:17 AM EDT POCT GLUCOSE Routine 01/25/2022 6:39 AM EDT documented in this encounter Results * Potassium (01/25/2022 7:17 AM EDT) Potassium 4.2 3.5 - 5.0 mmol/L [facility] Comment: Please note: ??Patients with WBC >100,000 may have falsely elevated Potassium levels. ??For accurate Potassium quantification in these patients send serum separator tube (gold top) for subsequent determinations. ??Contact the Clinical Chemistry Laboratory if there are any questions. Blood 01/25/2022 7:17 AM EDT 01/25/2022 7:25 AM EDT Narrative Resulting Agency Comment Spec In Lab Johanna Green APRN CHEMISTRY ORDERABL ES [facility] [place] [address] * POCT Glucose (01/25/2022 6:39 AM EDT) Glucose, POC 178 65 - 199 mg/dL [facility] Comment: Supplemental ranges: <140 mg/dL before meals <180 mg/dL all other times of the day Blood 01/25/2022 6:39 AM EDT 01/25/2022 6:39 AM EDT Jose Light MD POINT OF CARE TEST O RDERABLES [facility] [place] [address] documented in this encounter Visit Diagnoses Not [...] of Surgery (Day of Procedure) 07 ([facility] - Prov ider: Mimi Cole RN) documented in this encounter Care Teams Collar Trimmer Relationship Specialty Start Date End Date Kimani Leger MD [facility] [place] [address] [place] [address] PCP - General Family Medicine 02/10/21 documented as of this encounter
--- OUTSIDE RECORDS SUMMARY | 2023-12-31 17:02 | XMS_ITS | Encounter Summary ---
[place] [address] Care Team Providers Care Sorting Machine Operator Name Role Phone Kimani Leger MD Primary Care Provider [phone] Encounter Details Date Type Department Care Team (Late st Contact Info) Description 01/25/2022 7:46 [place] [address] Merlin Joyce MD [facility] [place] [address] Anesthesia Record Procedure Summary Procedure Name Responsible [...] cephalic vein (lateral side of arm), right; [id number] catheter system; 20 gauge, 1 in length; [...] Procedure Summary Date: 01/25/22 Room / Location: [facility] INTERVENTIONAL RADIOLOGY / [facility] Anesthesia Start: 745 Anesthesia Stop: 928 Procedure: FISTULAGRAM (N/A ) Diagnosis: (ESRD) Surgeons: Jose Light MD Responsible Provider: Merlin Joyce MD Anesthesia Type: MAC ASA Status: 3 All Anesthesia Providers: Anesthesiologist: Merlin Joyce MD [facility] SPECIALIST: Олег Robles CRNA Vitals Value Taken Time BP 118/69 01/25/22 1045 Temp 36 ??C (96.8 ??F) 01/25/22 1115 Pulse Resp 16 01/25/22 1045 SpO2 97 % 01/25/22 1100 Pain Level 0 01/25/22 0930 Patient Location: PACU/[facility] Level of Consciousness: Awake and [...] AV Fistula Evaluations 06/17/2020 Kimani Larson MD [facility] INTERVENTIONL RAD ??? IR DIALYSIS ACCESS - AV FISTULA EVALUATIONS 11/04/2020 IR Dialysis Access - AV Fistula Evaluations 11/04/2020 Kimani Larson MD [facility] INTERVENTIONL RAD ??? PERIPHERAL IRIDOTOMY 04/06/2012 OD [facility] ??? PRO EXTRACAPSULAR CATARACT RMVL INSERTION IO LENS PROSTH CPLX WO ECP 07/18/2012 ??? PRO EXTRACAPSULAR CATARACT RMVL INSERTION IO LENS PROSTH W/O ECP 11/29/2012 CATARACT EXTRACTION, EXTRACAPSULAR, W/ LENS INSERTION performed by Erasmo Bajwa MD at [facility] OSC ? ? PRO REPAIR COMPLEX RETINA DETACH VITRECTOMY & MEMB PEEL 04/03/2012, 04/03/12 REPAIR COMPLEX RETINAL DETACHMENT, W/ VITRECTOMY, MEMBRANE PEELING performed by Matteo Diane MD at [facility] MAIN OR ? ? PRO REPAIR COMPLEX RETINA DETACH VITRECTOMY & MEMB PEEL 07/31/2012 REPAIR COMPLEX RETINAL DETACHMENT, W/ VITRECTOMY, MEMBRANE PEELING performed by Matteo Diane MD at [facility] MAIN OR ? ? PRO REPAIR COMPLEX RETINA DETACH VITRECTOMY & MEMB PEEL 01/08/2013 REPAIR COMPLEX RETINAL DETACHMENT, W/ VITRECTOMY, MEMBRANE PEELING performed by Matteo Diane MD at [facility] MAIN OR ??? PRO TX EXTENSIVE [...] mg documented in this encounter Care Teams Sorting Machine Operator Relationship Specialty Start Date End Date Kimani Leger MD [address] [place] [address] PCP - General Family Medicine 02/10/21 documented as of this encounter
--- OUTSIDE RECORDS SUMMARY | 2023-12-31 17:02 | XMS_ITS | Clinical Summary ---
[place] [address] Care Team Providers Care Clay Press Operator Name Role Phone Kimani Leger MD Primary Care Provider [phone] Allergies Active Allergy Reactions Criticality Noted Date [...] Diagnosed Date Resolved Date Cellulitis 10/19/2018 06/11/2020 Encounters Date Type Department Care Team Description 12/28/2023 6:45 PM EDT Ancillary Procedure [place] [address] Bradford Momin MD Arrived 12/28/2023 6:40 PM EDT Ancillary Procedure [place] [address] Bradford Momin MD Arrived from Last 3 Months Immunizations Name Administration Dates Next Due Moderna Covid-19 Monovalent 12Yr+ (Podiatry Doctor 100mcg) 03/12/2021,08/25/2020,07/28/2020 Pneumococcal Polysaccharide (Pneumovax 23) 05/23 [...] 06/08/2018, 06/08/2018 Medical Devices Implanted Type Area Negotiations Director Device Identifier Shelf Expiration Date Model / Serial / Lot Iol,Ma60ac,25. 0 ([id number]) (Autoreq) - [id number] Implanted:Qty: 1 on 07/18/2012 by Phillip Schwartz MD at [facility] IMPLANTS Right: Eye [employer] - [id number] 10/18/2012 MA60AC 25.0 / [id number] / Iol,Sn60wf,27. 0 ([id number]) (Autoreq) - [id number] Implanted:Qty: 1 on 11/29/2012 by Erasmo Bajwa MD at [facility] IMPLANTS Left: Eye 07/30/2016 SN60WF 27.0 / [id number] / [id number] 27.0 Procedures Procedure Name Priority Date/Time Associated Diagnosis Comments FILM LIBRARY STORAGE ONLY CT LOWER EXTREMITY Routine 12/28/2023 6:37 PM EDT FILM LIBRARY STORAGE ONLY DX FOOT Routine 12/28/2023 6:35 PM EDT HC VENIPUNCTURE Routine 06/17/2020 1:48 PM EST ESRD on dialysis Type 2 diabetes mellitus with ESRD (end-stage renal disease) HC HIV SCREEN, 4TH GENERATION Routine 02/06/2020 2:48 PM EDT Coronary artery disease, angina presence unspecified, unspecified vessel or lesion type, unspecified whether [place] or transplanted heart Benign prostatic hyperplasia, unspecified [...] unspecified vessel or lesion type, unspecified whether [place] or transplanted heart Benign prostatic hyperplasia, unspecified [...] unspecified vessel or lesion type, unspecified whether iqu[place] or transplanted heart Benign prostatic hyperplasia, unspecified whether lower urinary tract symptoms present Diabetes mellitus due to underlying condition with diabetic nephropathy, 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 End stage renal disease Pre-transplant evaluation for kidney transplant from Last 3 Months or Most Recently Relevant to Health Maintenance Results * Film Library- Storage Only CT Lower Extremity (12/28/2023 6:37 PM EDT) Narrative [facility] - 12/28/2023 6:37 PM EDT This exam is auto-finalizing. It's purpose is for storage only. Bradford Momin MD IMG FILM LIBRARY ORD ERABLES Performing Organization Address [facility] de Phone Number [place], [place] * Film Library- Storage Only DX Foot (12/28/2023 6:35 PM EDT) Narrative [facility] - 12/28/2023 6:35 PM EDT This exam is auto-finalizing. It's purpose is for storage only. Bradford Momin MD IM FILM LIBRARY ORD ERABLES Performing Organization Address [facility] de Phone Number [place], [place] * (ABNORMAL) Basic Metabolic Panel (non-fasting) (06/17/2020 1:48 PM EST) Glucose 258(H) 65 - 199 mg/dL [facility] Comment:Diabetes: >=200 mg/d L plus symptoms Blood Urea Nitrogen 15 10 - 20 mg/dL [facility] Creatinine 2.44(H) 0.80 - 1.50 mg/dL [facility] Sodium 137 135 - 145 mmol/L [facility] Potassium 4.0 3.5 - 5.0 mmol/L [facility] Comment: Please note: ??Patients with WBC >100,000 may have falsely elevated Potassium levels. ??For accurate Potassium quantification in these patients send serum separator tube (gold top) for subsequent determinations. ??Contact the Clinical Chemistry Laboratory if there are any questions. Chloride 93(L) 98 - 107 mmol/L [facility] Carbon Dioxide 35(H) 22 - 31 mmol/L [facility] Anion Gap 9 5 - 15 mmol/L [facility] Calcium 9.6 8.5 - 10.5 mg/dL [facility] Est Glomerular Filtration Rate 28(L) >=60 mL/min/1. 73 m?? [facility] Comment: This patient? s estimated [...] MD CHEMISTRY ORDERABLE S Performing Organization Address [facility]/ZIP Co de Phone Number [facility] [place] [address] * Hepatitis C Antibody (02/06/2020 2:48 PM EDT) Hepatitis C Antibody Negative Negative [facility] Blood specimen (specimen) 02/06/2020 2:48 PM EDT 02/06/2020 2:57 PM EDT Narrative Resulting Agency Comment Spec In Lab Young Coronado MD CHEMISTRY ORDERABLES Performing Organization Address [facility]/ZIP Co de Phone Number [facility] [place] [address] * HIV Screen, 4th Generation ([facility]CGP/APD/[place] (02/06/2020 2:48 PM EDT) HIV Ab/Ag Screen Negative Negative [facility] Comment: This 4th Generation HIV [...] In Lab Young Coronado MD CHEMISTRY ORDERABLES [facility] [place] [address] * (ABNORMAL) Hemoglobin A1c (02/06/2020 2:48 PM EDT) Hemoglobin A1c 10.0(H) 4.3 - 5.6 % [facility] Comment: Reference Range: 4.3 - [...] Mellitus, Diabetes Care 2013; 36: Suppl. 1, S67-62 Estimated Average Glucose 239 mg/dL [facility] Comment: eAG equivalents for HbA1c [...] into estimated average glucose values. ??Diabetes Care 2008:31(8):7093-4961. Blood specimen (specimen) 02/06/2020 2:48 PM EDT 02/06/2020 2:57 PM EDT Narrative Resulting Agency Comment Spec In Lab Young Coronado MD CHEMISTRY ORDERABLES [facility] [place] [address] from Last 3 Months or Most Recently Relevant to Health Maintenance Advance Directives Documents on File Type Date Recorded Patient Fountain Clerk Expl anation Advance Directives and Luz giraldo [...] Agents on File Name Relationship Healthcare Agent [facility] Communication Adriana Lopez Sibling First Alternate Health Care Agent Iva Mirza Sibling Second Alternate Health Care Agent Care Teams Clay Press Operator Relationship Specialty Start Date End Date Kimani Leger MD [address] [place], [place] [address] [address] PCP - General Family Medicine 02/10/21
--- OUTSIDE RECORDS SUMMARY | 2023-12-31 17:03 | XMS_ITS | Encounter Summary ---
[place] [address] Care Team Providers Care Therapeutic Activities Services Worker Name Role Phone Jarad Keller DNP Primary Care Provider [phone] Encounter Details Date Type Department Care Team (Late st Contact Info) Description 02/06/2020 2:30 PM EDT Office [place] [address] Encounter for pre-transplant evaluation for kidney transplant [...] this encounter Progress Notes * Nikki Castillo, [facility] - 02/06/2020 2:30 PM EDT Transplant Pharmacy [...] mouth daily. ??? OneTouch Verio Flex meter [facility] [place]LOOD GLUCOSE THREE TIMES A DAY ??? insulin needles, disposable, 31 gauge x 3/16 Needle Inject 1 each subcutaneously 4 times daily. ICD 10 Code: E11.65 ??? sub-q insulin device, 20 unit (V-GO 20) Device 1 each by [facility]Non-Drug; Combo Route) route daily. Insulin pump to infuse insulin continuously. Change daily ??? blood sugar diagnostic strips Strip Use to check blood sugar 3 times daily No current [facility]-ordered facility-administered medications on file. Assessment/plan: 1. There [...] Item Adherence scale. 3. The need for watermelon inspector medication and potential adjustment of medications post-transplant [...] questions NIKKI CASTILLO RPH Transplant pharmacist Pager [phone] documented in this encounter Plan of Treatment Not on file documented as of this encounter Visit Diagnoses Diagnosis Encounter for pre-transplant evaluation for kidney transplant documented in this encounter Care Teams Therapeutic Activities Services Worker Relationship Specialty Start Date End Date Jarad Keller DNP PCP - General Family Medicine 06/05/18 02/09/21 documented as of this encounter
--- OUTSIDE RECORDS SUMMARY | 2023-12-31 17:03 | XMS_ITS | Encounter Summary ---
Author Organization [facility] [place] [address] Care Team Providers Care French Folder Name Role Phone Jarad Keller DNP Primary Care Provider [phone] Reason for Visit * Reason Comments Procedure Eylea 3/3 OS PDR Encounter Details Date Type Department Care Team (Latest Contact Info) Description 03/21/2020 2:45 PM EST Procedure [place] [address] Harmeet Arvizu MD [facility] [place] [address] Proliferative diabetic retinopathy of left eye with [...] about driving: We always recommend having a rickshaw driver on the day you get an [...] Normal and Not Expected side effects: Call [phone] (Eye Clinic) DAY or NIGHT, HOLIDAY or WEEKEND if you experience any of the following: = Severe, increasing pain in the eye = Significant, dramatic vision loss = Redness on and around the eye that gets worse, not better = Severe light sensitivity Call [phone] or go to the Emergency room immediately [...] of Eylea 2.0 mg left eye Assist: Tufting Machine Fixer Anesthesia: Topical Proparacaine and topical 4% Lidocaine Complications: None Procedure: The patient was taken to the minor treatment suite where the patient was reidentified using name and birthdate as critical identifiers. The correct eye as the operative site was reidentified by a preplaced site maria r, and the consent form was actively reviewed by the first assistant manager and the surgeon. The left eye was prepped including instillation of Betadine 5% into the left cul de sac for 5 minutes, facial prep with ophthalmic Betadine and placement of a lid speculum. The Surgeon performed hand washing preoperatively, used gloves, and wore a face mask or used no talking technique during the procedudre, as did the assistant womens volleyball coach. After topical anesthesia of the injection site [...] call the Eye Clinic or Eye Doctor certified meeting professional, should they develop pain the treated eye, increasing redness or a discharge from the eye. 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
--- OUTSIDE RECORDS SUMMARY | 2023-12-31 17:03 | XMS_ITS | Encounter Summary ---
[place] [address] Care Team Providers Care Stitcher Around Name Role Phone Jarad Keller DNP Primary Care Provider [phone] Encounter Details Date Type Department Care Team (Late st Contact Info) Description 02/06/2020 12:30 PM EDT Office [place] [address] Awaiting organ transplant status Social History Tobacco [...] Hernández - 02/06/2020 12:30 PM EDT Transplant Exercise Equipment Specialist Note: Met with patient during the Kidney Class appointment to review medical and pharmacy benefits for transplant services. He is covered by Medicare A, B, and D ([facility]) as well as [place] Medicaid. He states [...] AB Secondary Plan: [place] Medicaid Pharmacy Carrier: [employer] part D Phone: Drug Dose/Form # for [...] status documented in this encounter Care Teams Stitcher Around Relationship Specialty Start Date End Date Jarad Keller DNP PCP - General Family Medicine 06/05/18 02/09/21 documented as of this encounter
--- OUTSIDE RECORDS SUMMARY | 2023-12-31 17:03 | XMS_ITS | Encounter Summary ---
[place] [address] Care Team Providers Care Flooring Sales Manager Name Role Phone Jarad Keller DNP Primary Care Provider [phone] Encounter Details Date Type Department Care Team (Late st Contact Info) Description 02/06/2020 10:30 AM EDT Office Visit [place] [address] Young Watts MD [facility] [place] [address] Type 2 diabetes mellitus with ESRD (end-stage [...] the patient received their treatment from is: [place], [place] ? 2016 Previously wait listed at [facility] Reason for referral: Evaluation for Kidney Transplantation. [...] up!!; 6 months ago stress test at [facility] Seborrhea Edentulous Balance problems uses cane [...] INSERTION performed by Erasmo Bajwa MD at [facility] ? ? PRO REPAIR COMPLEX RETINA DETACH VITRECTOMY & MEMB PEEL 04/03/2012, 04/03/12 REPAIR COMPLEX RETINAL DETACHMENT, W/ VITRECTOMY, MEMBRANE PEELING performed by Matteo Diane MD at [facility] ? ? PRO REPAIR COMPLEX RETINA DETACH VITRECTOMY & MEMB PEEL 07/31/2012 REPAIR COMPLEX RETINAL DETACHMENT, W/ VITRECTOMY, MEMBRANE PEELING performed by Matteo Diane MD at [facility] ? ? PRO REPAIR COMPLEX RETINA DETACH VITRECTOMY & MEMB PEEL 01/08/2013 REPAIR COMPLEX RETINAL DETACHMENT, W/ VITRECTOMY, MEMBRANE PEELING performed by Matteo Diane MD at [facility] ??? PRO TX EXTENSIVE [...] Hx ??? 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 mv,iron/folic/D3/om-3/dha/epa (PRORENAL QD ORAL), ProRenal QD oral capsule, Disp: , Rfl: ??? OneTouch Verio Flex meter [facility], TEST BLOOD GLUCOSE THREE TIMES A DAY, [...] unit (V-GO 20) Device, 1 each by [facility].(Non-Drug; Combo Route) route daily. Insulin pump to [...] from 02/06/2020 [place] [facility] Weight 102.5 kg (226 lb) Height 163.8 [...] strength intact. Neurological: No asymmetries, DTRs or management aide Skin: no active lesions Assessment: Mr. Maurice [...] Citizen: yes Recommendations: I discussed with Mr. Maurcie Rudolph about his Kidney organ failure and [...] testing for TBI, needs psychosocial eval re: tennis camp instructor issues at home ( is invalid due [...] 90 Minutes in direct face to face career guidance counselor. documented in this encounter Plan of Treatment Not on file documented as of this encounter Visit Diagnoses Diagnosis Type 2 diabetes mellitus with ESRD (end-stage renal disease) Type II or unspecified type diabetes mellitus with renal manifestations, not stated as uncontrolled Pre-transplant evaluation for ESRD (end stage renal disease) Other specified pre-operative examination documented in this encounter Care Teams Flooring Sales Manager Relationship Specialty Start Date End Date Jarad Keller DNP PCP - General Family Medicine 06/05/18 02/09/21 documented as of this encounter
--- OUTSIDE RECORDS SUMMARY | 2023-12-31 17:03 | XMS_ITS | Encounter Summary ---
Author Organization [facility] [place] [address] Care Team Providers Care Food And Beverage Controller Name Role Phone Jarad Keller DNP Primary Care Provider [phone] Reason for Visit * Reason Comments Procedure Eylea OS #2/3 Encounter Details Date Type Department Care Team (Latest Contact Info) Description 02/15/2020 2:00 PM EDT Procedure [place] [address] Harmeet Arvizu MD [facility] [place] [address] Proliferative diabetic retinopathy of left eye with [...] about driving: We always recommend having a corporate driver on the day you get an [...] Normal and Not Expected side effects: Call [phone] (Eye Clinic) DAY or NIGHT, HOLIDAY or WEEKEND if you experience any of the following: = Severe, increasing pain in the eye = Significant, dramatic vision loss = Redness on and around the eye that gets worse, not better = Severe light sensitivity Call [phone] or go to the Emergency room immediately [...] of Eylea 2.0 mg left eye Assist: Air Force Pilot Anesthesia: Topical Proparacaine and topical 4% Lidocaine Complications: None Procedure: The patient was taken to the minor treatment suite where the patient was reidentified using name and birthdate as critical identifiers. The correct eye as the operative site was reidentified by a preplaced site maria r, and the consent form was actively reviewed by the records assistant and the surgeon. The left eye was prepped including instillation of Betadine 5% into the left cul de sac for 5 minutes, facial prep with ophthalmic Betadine and placement of a lid speculum. The Surgeon performed hand washing preoperatively, used gloves, and wore a face mask or used no talking technique during the procedudre, as did the electrician assistant. After topical anesthesia of the injection site [...] call the Eye Clinic or Eye Doctor concrete stone fabricating supervisor, should they develop pain the treated eye, [...] Eye documented in this encounter Care Teams Food And Beverage Controller Relationship Specialty Start Date End Date Jarad Keller DNP PCP - General Family Medicine 06/05/18 02/09/21 documented as of this encounter
--- OUTSIDE RECORDS SUMMARY | 2023-12-31 17:03 | XMS_ITS | Encounter Summary ---
[place] [address] Care Team Providers Care Stencil Sprayer Name Role Phone Jarad Keller DNP Primary Care Provider [phone] Encounter Details Date Type Department Care Team (Late st Contact Info) Description 02/06/2020 11:30 AM EDT Office Visit [place] [address] Pre-transplant evaluation for kidney transplant Social History [...] EDT TRANSPLANT NUTRITION Initial Transplant Note This senior mortgage underwriter met with Maurice Rudolph a 59 [...] 08/2019) Dialysis History: HD T//S (initiated in [place] ~4 years ago per pt report) currently through [facility] for the last couple of years [...] oral capsule ??? OneTouch Verio Flex meter [facility] [place] BLOOD GLUCOSE THREE TIMES A DAY [...] unit (V-GO 20) Device 1 each by [facility].(Non-Drug; Combo Route) route daily. Insulin pump to [...] means for contact provided. Plan communicated to Call Or Contact Centre Manager for Documentation in patient's transplant medical record. [...] examination documented in this encounter Care Teams Stencil Sprayer Relationship Specialty Start Date End Date Jarad Keller DNP PCP - General Family Medicine 06/05/18 02/09/21 documented as of this encounter
--- OUTSIDE RECORDS SUMMARY | 2023-12-31 17:03 | XMS_ITS | Encounter Summary ---
[place] [address] Care Team Providers Care Steel Tier Name Role Phone Jarad Keller DNP Primary Care Provider [phone] Encounter Details Date Type Department Care Team (Late st Contact Info) Description 05/20/2020 Orders Only [place] [address] Nettie Davis, COMMODITIES TRADER [facility] [place] [address] Social History Tobacco Use Types Packs/Day Years [...] on filedocumented in this encounter Care Teams Steel Tier Relationship Specialty Start Date End Date Jarad Keller DNP PCP - General Family Medicine 06/05/18 02/09/21 documented as of this encounter
--- OUTSIDE RECORDS SUMMARY | 2023-12-31 17:03 | XMS_ITS | Encounter Summary ---
[place] [address] Care Team Providers Care Glove Boarder Name Role Phone Jarad Keller DNP Primary Care Provider [phone] Encounter Details Date Type Department Care Team (Late st Contact Info) Description 01/16/2020 Telephone [place] [address] Sherie Mccallum, [facility] [place] [address] Social History Tobacco Use Types Packs/Day Years [...] intake. Left message for him to call video games storywriter back. Will await return call. documented in this encounter Plan of Treatment Not on file documented as of this encounter Visit Diagnoses Not on filedocumented in this encounter Care Teams Glove Boarder Relationship Specialty Start Date End Date Jarad Keller DNP PCP - General Family Medicine 06/05/18 02/09/21 documented as of this encounter
--- OUTSIDE RECORDS SUMMARY | 2023-12-31 17:03 | XMS_ITS | Encounter Summary ---
[place] [address] Care Team Providers Care Fuel System Maintenance Worker Name Role Phone Jarad Keller DNP Primary Care Provider [phone] Encounter Details Date Type Department Care Team (Late st Contact Info) Description 05/16/2020 Telephone Solid [place] [address] [facility] [place] [address] Social History Tobacco Use Types Packs/Day Years [...] the phone regarding weight loss progress. During fiction and nonfiction prose writer's initial encounter with pt in January 2020 nutrition-related goals for transplant discussed, including weightloss given obese class II and tighter blood glucose control. Prior to speaking with Maurice this fiction and nonfiction prose writer obtained most recent EDW from dialysis [...] not differed much from diet reported to fiction and nonfiction prose writer in January. Pt states that he [...] - pt states he is working with change management administrator to get another insulin pump to aid [...] with pt and dialysis RD. Informed Maurice fiction and nonfiction prose writer to check in with him in ~3 mo; with a weight loss goal achieved at this time of 5% / 10#. Maurice agreeable to plan. Informed Maurice fiction and nonfiction prose writer available at anytime in the meantime to further assist him with nutrition-related goals for transplant. Thank you, Cheryl Presley RD documented in this encounter Plan of Treatment Not on file documented as of this encounter Visit Diagnoses Not on filedocumented in this encounter Care Teams Fuel System Maintenance Worker Relationship Specialty Start Date End Date Jarad Keller DNP PCP - General Family Medicine 06/05/18 02/09/21 documented as of this encounter
--- OUTSIDE RECORDS SUMMARY | 2023-12-31 17:03 | XMS_ITS | Encounter Summary ---
[place] [address] Care Team Providers Care Commercial Fishing Vessel Operator Name Role Phone Jarad Keller DANIKA Primary Care Provider [phone] Reason for Referral * Diagnostic Test (Routine) - Closed Specialty Diagnoses / Procedures Referred By Puneet hallman Referred To Contact Radiology Diagnoses ESRD (end stage renal disease) Procedures IR Dialysis Access - AV Fistula Evaluations Too Morgan MD [facility] [place] [address] [place] [address] Referral ID Status Reason Start Date Expiration Date V isits Requested Visits Authorized [id number] Closed Specialty Service Requested 10/21/2020 04/22/2022 1 1 Reason for Visit * Diagnostic Test (Routine) - Closed Specialty Diagnoses / Procedures Referred By Puneet hallman Referred To Contact Radiology Diagnoses ESRD (end stage renal disease) Procedures IR Dialysis Access - AV Fistula Evaluations Too Morgan MD [facility] [place] [address] [facility] [place] [address] Referral ID Status Reason Start Date Expiration Date V isits Requested Visits Authorized [id number] Closed Specialty Service Requested 10/21/2020 04/22/2022 1 1 Encounter Details Date Type Department Care Team (Latest Contact Info) Description 11/04/2020 2:30 PM EDT - 11/04/2020 11:59 PM EDT Hospital [place] [address] Too Morgan MD [facility] [place] [address] ESRD (end stage renal disease) Discharge Disposition: [...] Questions Answers Where will study be performed? [facility] Radiology [120] Laterality Left Is the patient [...] stenosis AV anastomosis resolved with 5 mm ASSISTANT DEAN OF STUDENTS. 2. Moderate/severe 2 cm juxta anastomotic cephalic vein stenosis resolved with 6 mm ASSISTANT DEAN OF STUDENTS. 3. Outflow from elbow centrally via both [...] AV Fistula Evaluations 06/17/[address] [facility] INTERVENTIONL RAD ??? PERIPHERAL IRIDOTOMY 04/06/2012 OD Swendris ??? PRO EXTRACAPSULAR CATARACT RMVL INSERTION IO LENS PROSTH CPLX WO ECP 07/18/2012 ??? PRO EXTRACAPSULAR CATARACT RMVL INSERTION IO LENS PROSTH W/O ECP 11/29/2012 CATARACT EXTRACTION, EXTRACAPSULAR, W/ LENS INSERTION performed by Erasmo Bajwa MD at [facility] OSC ? ? PRO REPAIR COMPLEX RETINA DETACH VITRECTOMY & MEMB PEEL 04/03/2012, 04/03/12 REPAIR COMPLEX RETINAL DETACHMENT, W/ VITRECTOMY, MEMBRANE PEELING performed by Matteo Diane MD at [facility] MAIN OR ? ? PRO REPAIR COMPLEX RETINA DETACH VITRECTOMY & MEMB PEEL 07/31/2012 REPAIR COMPLEX RETINAL DETACHMENT, W/ VITRECTOMY, MEMBRANE PEELING performed by Matteo Diane MD at [facility] MAIN OR ? ? PRO REPAIR COMPLEX RETINA DETACH VITRECTOMY & MEMB PEEL 01/08/2013 REPAIR COMPLEX RETINAL DETACHMENT, W/ VITRECTOMY, MEMBRANE PEELING performed by Matteo Diane MD at [facility] MAIN OR ??? PRO TX [...] Questions Answers Where will study be performed? [facility] Radiology [120] Laterality Left Is the patient [...] stenosis AV anastomosis resolved with 5 mm ASSISTANT DEAN OF STUDENTS. 2. Moderate/severe 2 cm juxta anastomotic cephalic vein stenosis resolved with 6 mm ASSISTANT DEAN OF STUDENTS. 3. Outflow from elbow centrally via both [...] AV Fistula Evaluations 06/17/[address] [facility] INTERVENTIONL RAD ??? PERIPHERAL IRIDOTOMY 04/06/2012 OD [place]endris ??? PRO EXTRACAPSULAR CATARACT RMVL INSERTION IO LENS PROSTH CPLX WO ECP 07/18/2012 ??? PRO EXTRACAPSULAR CATARACT RMVL INSERTION IO LENS PROSTH W/O ECP 11/29/2012 CATARACT EXTRACTION, EXTRACAPSULAR, W/ LENS INSERTION performed by Erasmo Bajwa MD at [facility] OSC ? ? PRO REPAIR COMPLEX RETINA DETACH VITRECTOMY & MEMB PEEL 04/03/2012, 04/03/12 REPAIR COMPLEX RETINAL DETACHMENT, W/ VITRECTOMY, MEMBRANE PEELING performed by Matteo Diane MD at [facility] MAIN OR ? ? PRO REPAIR COMPLEX RETINA DETACH VITRECTOMY & MEMB PEEL 07/31/2012 REPAIR COMPLEX RETINAL DETACHMENT, W/ VITRECTOMY, MEMBRANE PEELING performed by Matteo Diane MD at [facility] MAIN OR ? ? PRO REPAIR COMPLEX RETINA DETACH VITRECTOMY & MEMB PEEL 01/08/2013 REPAIR COMPLEX RETINAL DETACHMENT, W/ VITRECTOMY, MEMBRANE PEELING performed by Matteo Diane MD at [facility] MAIN OR ??? PRO TX [...] technique under ultrasound guidance and a 4 [place]er sheath placed facing peripherally. ??4 [place] sheath exchanged over guidewire for a 6 [place] sheath. ??Guidewire and angled catheter were placed [...] to AV anastomosis, resolved with 7 mm ASSISTANT DEAN OF STUDENTS. 3. Coil from prior intervention at outside hospital in the forearm, unchanged from 06/17/20. 4. AV anastomosis not stenotic. Plan/Disposition: 1) To Same Day for recovery, may discharge to home when meets criteria. 2) Left arm dialysis fistula ready for use. Chenille Machine Operator(s): Resident/Fellow: Narinder Rivera Attending: Dr. Larson. [...] mLs documented in this encounter Care Teams Commercial Fishing Vessel Operator Relationship Specialty Start Date End Date Jarad Keller DNP PCP - General Family Medicine 06/05/18 02/09/21 documented as of this encounter
--- OUTSIDE RECORDS SUMMARY | 2023-12-31 17:03 | XMS_ITS | Encounter Summary ---
Author Organization [facility] [place] [address] Care Team Providers Care Human Resources Temp Name Role Phone Jarad Keller DANIKA Primary Care Provider [phone] Reason for Visit * Consultation (Routine) - Closed Specialty Diagnoses / Procedures Referred By Puneet hallman Referred To Contact Transplant Diagnoses ESRD (end stage renal disease) Procedures Txp Too Lynn MD [facility] [place] [address] Young Watts MD [facility] [place] [address] Referral ID Status Reason Start Date Expiration Date V isits Requested Visits Authorized [id number] Closed Consult, Test & Treat 12/18/2019 12/17/2020 1 1 Encounter Details Date Type Department Care Team (Latest Contact Info) Description 02/06/2020 9:00 AM EDT Clinical Support [place] [address] Young Watts MD [facility] DR TRANS[place]ANT [place] [address] Pre-transplant evaluation for kidney transplant; ESRD (end [...] disease documented in this encounter Care Teams Human Resources Temp Relationship Specialty Start Date End Date Jarad Keller DNP PCP - General Family Medicine 06/05/18 02/09/21 documented as of this encounter
--- OUTSIDE RECORDS SUMMARY | 2023-12-31 17:03 | XMS_ITS | Encounter Summary ---
[place] [address] Care Team Providers Care Window Shade Ring Coverer Name Role Phone Jarad Keller DANIKA Primary Care Provider [phone] Reason for Referral * Consultation (Routine) - Closed Specialty Diagnoses / Procedures Referred By Puneet hallman Referred To Contact Neurology Diagnoses [place], Too Wood MD [facility] [place] [address] [facility] [address] [place] [phone] Referral ID Status Reason Start Date Expiration Date Visits Re quested Visits Authorized [id number] Closed 09/04/2020 09/04/2021 12 12 Encounter Details Date Type Department Care Team (Late st Contact Info) Description 09/04/2020 Orders Only Nephrology [place] [address] Too Morgan MD [facility] [address] Fall, sequela Social History Tobacco Use Types [...] sequela documented in this encounter Care Teams Window Shade Ring Coverer Relationship Specialty Start Date End Date Jarad Keller DNP PCP - General Family Medicine 06/05/18 02/09/21 documented as of this encounter
--- OUTSIDE RECORDS SUMMARY | 2023-12-31 17:03 | XMS_ITS | Encounter Summary ---
Author Organization [facility] [place] [address] Care Team Providers Care Soils Analyst Name Role Phone Jarad Keller DNP Primary Care Provider [phone] Encounter Details Date Type Department Care Team (Late st Contact Info) Description 06/17/2020 2:36 [place] [address] Merlin Joyce MD [facility] [place] [address] Danuta Dye, WORM GROWER [address] [facility] 3B-1 [place] [address] Anesthesia Record Procedure Summary Procedure Name Responsible [...] 1418; metacarpal vein (top of hand), right; [id number] catheter system; 20 gauge; bob neville; distraction; [...] Procedure Summary Date: 06/17/20 Room / Location: [facility] INTERVENTIONAL RADIOLOGY 2 / [facility] Anesthesia Start: 1436 Anesthesia Stop: 1616 Procedure: FISTULAGRAM (Left ) Diagnosis: (ESRD (end stage renal disease)) Surgeons: Ceasar Gonzalez MD Responsible Provider: Merlin Joyce MD Anesthesia Type: general ASA Status: 3 All Anesthesia Providers: Anesthesiologist: Merlin Joyce MD Clinical Trial Leader: Bob Neville MD Vitals Value Taken Time BP Temp Pulse Resp SpO2 Pain Level Patient [facility]: [facility] Level of Consciousness: Awake and [...] INSERTION performed by Erasmo Bajwa MD at [facility] OSC ? ? PRO REPAIR COMPLEX RETINA DETACH VITRECTOMY & MEMB PEEL 04/03/2012, 04/03/12 REPAIR COMPLEX RETINAL DETACHMENT, W/ VITRECTOMY, MEMBRANE PEELING performed by Matteo Diane MD at [facility] MAIN OR ? ? PRO REPAIR COMPLEX RETINA DETACH VITRECTOMY & MEMB PEEL 07/31/2012 REPAIR COMPLEX RETINAL DETACHMENT, W/ VITRECTOMY, MEMBRANE PEELING performed by Matteo Diane MD at [facility] MAIN OR ? ? PRO REPAIR COMPLEX RETINA DETACH VITRECTOMY & MEMB PEEL 01/08/2013 REPAIR COMPLEX RETINAL DETACHMENT, W/ VITRECTOMY, MEMBRANE PEELING performed by Matteo Diane MD at [facility] MAIN OR ??? PRO TX EXTENSIVE [...] mL/hr documented in this encounter Care Teams Soils Analyst Relationship Specialty Start Date End Date Jarad Keller DNP PCP - General Family Medicine 06/05/18 02/09/21 documented as of this encounter
--- OUTSIDE RECORDS SUMMARY | 2023-12-31 17:03 | XMS_ITS | Encounter Summary ---
[place] [address] Care Team Providers Care President Mortgage Company Name Role Phone Jarad Keller DANIKA Primary Care Provider [phone] Reason for Referral * Diagnostic Test (Routine) - Closed Specialty Diagnoses / Procedures Referred By Puneet hallman Referred To Contact Radiology Diagnoses ESRD (end stage renal disease) Procedures IR Dialysis Access - AV Fistula Evaluations Too Morgan MD [facility] [place] [address] [facility] [place] [address] Referral ID Status Reason Start Date Expiration Date V isits Requested Visits Authorized [id number] Closed Specialty Service Requested 10/21/2020 04/22/2022 1 1 Encounter Details Date Type Department Care Team ([facility] st Contact Info) Description 10/21/2020 Orders Only [place] [address] Too Morgan MD [facility] [place] [address] ESRD (end stage renal disease) Social History [...] technique under ultrasound guidance and a 4 Algerian sheath placed facing peripherally. ??4 Algerian sheath exchanged over guidewire for a 6 Algerian sheath. ??Guidewire and angled catheter were placed [...] to AV anastomosis, resolved with 7 mm BRIDGE INSTRUCTOR. 3. Coil from prior intervention at outside hospital in the forearm, unchanged from 06/17/20. 4. AV anastomosis not stenotic. Plan/Disposition: 1) To Same Day for recovery, may discharge to home when meets criteria. 2) Left arm dialysis fistula ready for use. Personal Trainer(s): Resident/Fellow: Narinder Rivera Attending: Dr. Larson. ??I, Dr. Larson was present throughout this procedure. 11/04/2020 Too Morgan MD IM IR ORDERABLES documented in this encounter Visit Diagnoses Diagnosis ESRD (end stage renal disease) End stage renal disease ESRD (end stage renal disease) End stage renal disease documented in this encounter Care Teams President Mortgage Company Relationship Specialty Start Date End Date Jarad Keller DNP PCP - General Family Medicine 06/05/18 02/09/21 documented as of this encounter
--- OUTSIDE RECORDS SUMMARY | 2023-12-31 17:03 | XMS_ITS | Encounter Summary ---
[place] [address] Care Team Providers Care Aed Trainer Name Role Phone Jarad Keller DANIKA Primary Care Provider [phone] Reason for Referral * Diagnostic Test (Routine) - Closed Specialty Diagnoses / Procedures Referred By Puneet hallman Referred To Contact Radiology Diagnoses ESRD (end stage renal disease) Procedures IR Dialysis Access - AV Fistula Evaluations Too Morgan MD [facility] [place] [address] [place] [address] Referral ID Status Reason Start Date Expiration Date V isits Requested Visits Authorized [id number] Closed Specialty Service Requested 06/03/2020 12/01/2021 1 1 Reason for Visit * Diagnostic Test (Routine) - Closed Specialty Diagnoses / Procedures Referred By Contariel hallman Referred To Contact Radiology Diagnoses ESRD (end stage renal disease) Procedures IR Dialysis Access - AV Fistula Evaluations Too Morgan MD [facility] [place] [address] [facility] [place] [address] Referral ID Status Reason Start Date Expiration Date V isits Requested Visits Authorized [id number] Closed Specialty Service Requested 06/03/2020 12/01/2021 1 1 Encounter Details Date Type Department Care Team (Latest Contact Info) Description 06/17/2020 2:30 PM EST - 06/17/2020 11:59 PM EST Hospital [place] [address] Too Morgan MD [facility] [place] [address] ESRD on dialysis; Type 2 [...] experiencing decreased flows. No prior interventions by [facility] IR. History of type 2 insulin-dependent diabetes [...] tablet 3 ??? OneTouch Verio Flex meter [facility] [place] BLOOD GLUCOSE THREE TIMES A DAY [...] unit (V-GO 20) Device 1 each by [facility].(Non-Drug; Combo Route) route daily. Insulin pump to [...] experiencing decreased flows. No prior interventions by [facility]. History of type 2 insulin-dependent diabetes [...] tablet 3 ??? OneTouch Verio Flex meter [facility] TEST BLOOD GLUCOSE THREE TIMES A DAY [...] unit (V-GO 20) Device 1 each by [facility].(Non-Drug; Combo Route) route daily. Insulin pump to [...] experiencing decreased flows. ??No prior interventions by [facility]. ??History of type 2 insulin-dependent diabetes [...] used to dilate the cephalic stenosis. ??Post INNER TUBE INSERTER radial artery arteriography showed resolution of the [...] stenosis AV anastomosis resolved with 5 mm INNER TUBE INSERTER 3. ??Moderate/severe 2 cm juxta anastomotic cephalic vein stenosis resolved with 6 mm INNER TUBE INSERTER. 4. ??Outflow from elbow centrally via both cephalic and basilic systems without central stenoses. 5. ??Coil from prior intervention at outside hospital in the forearm approximately 4 cm central to the AV anastomosis. ??Presumably placed in a side branch vein. Plan/Disposition: 1) To Same day recovery room, may discharge to home when meets criteria. 2) left upper extremity dialysis fistula ready for use. Embedded Systems Developer(s): Resident/Fellow: Narinder Rivera Attending: Dr. Larson. ??I, Dr. Larson was present throughout this procedure. 06/17/2020 Too Morgan MD [facility] IR ORDERABLES * (ABNORMAL) Basic Metabolic Panel (non-fasting) (06/17/2020 1:48 PM EST) Glucose 258(H) 65 - 199 mg/dL [facility] Comment:Diabetes: >=200 mg/d L plus symptoms Blood Urea Nitrogen 15 10 - 20 mg/dL [facility] Creatinine 2.44(H) 0.80 - 1.50 mg/dL [facility] Sodium 137 135 - 145 mmol/L [facility] Potassium 4.0 3.5 - 5.0 mmol/L [facility] Comment: Please note: ??Patients with WBC >100,000 may have falsely elevated Potassium levels. ??For accurate Potassium quantification in these patients send serum separator tube (gold top) for subsequent determinations. ??Contact the Clinical Chemistry Laboratory if there are any questions. Chloride 93(L) 98 - 107 mmol/L [facility] Carbon Dioxide 35(H) 22 - 31 mmol/L [facility] Anion Gap 9 5 - 15 mmol/L [facility] Calcium 9.6 8.5 - 10.5 mg/dL [facility] Est Glomerular Filtration Rate 28(L) >=60 mL/min/1. 73 m?? [facility] Comment: This patient? s estimated [...] Lab Too Morgan MD CHEMISTRY ORDERABLE S [facility] [place] [address] * (ABNORMAL) Hemogram (06/17/2020 1:48 PM EST) White Blood Cell 7.0 4.0 - 9.5 x10(3)/mc L [facility] Red Blood Cell 4.09(L) 4.58 - 5.54 x10(6)/mc L [facility] Hemoglobin 12.9(L) 13.7 - 16.5 gm/dL [facility] Hematocrit 37.3(L) 40.5 - 48.5 % [facility] Mean Cell Volume 91.2 82.9 - 93.1 fL [facility] Mean Cell Hemoglobin 31.5 27.5 - 32.1 pg [facility] Mean Cell Hemoglobin Concentration 34.6 32.0 - 35.7 gm/dL [facility] Platelet 142(L) 145 - 357 x10(3)/mc L [facility] RDW Standard Deviation 43.9 36.0 - 45.0 fL [facility] RDW coefficient of variation 13.1 11.4 - 13.8 % [facility] Mean Platelet Volume 10.0 7.6 - 12.9 fL [facility] NRBC% auto 0.0 % [facility] NRBC Absolute 0.000 0.000 - 0.000 x10(3)/mc L [facility] Blood specimen (specimen) 06/17/2020 1:48 PM EST 06/17/2020 2:00 PM EST Narrative Resulting Agency Comment Spec In Lab Too Morgan MD HEMATOLOGY ORDERABL ES [facility] [place] [address] documented in this encounter Visit Diagnoses Diagnosis [...] mLs documented in this encounter Care Teams Aed Trainer Relationship Specialty Start Date End Date Jarad Keller DNP PCP - General Family Medicine 06/05/18 02/09/21 documented as of this encounter
--- OUTSIDE RECORDS SUMMARY | 2023-12-31 17:03 | XMS_ITS | Encounter Summary ---
[place] [address] Care Team Providers Care Casting Machine Adjuster Name Role Phone Jarad Keller DNP Primary Care Provider [phone] Encounter Details Date Type Department Care Team (Late st Contact Info) Description 07/30/2020 Telephone [place] [address] Cecilia Brooke LPN Social History Tobacco Use [...] EDT Called and spoke with staff at [facility]. Per staff recent hemoglobin A1C completed 07/08/20 was 11. Faxing over labs to [phone]. Advised to call back kidney transplant clinic with any questions or updates. documented in this encounter Plan of Treatment Not on file documented as of this encounter Visit Diagnoses Not on filedocumented in this encounter Care Teams Casting Machine Adjuster Relationship Specialty Start Date End Date Jarad Keller DNP PCP - General Family Medicine 06/05/18 02/09/21 documented as of this encounter
--- OUTSIDE RECORDS SUMMARY | 2023-12-31 17:03 | XMS_ITS | Encounter Summary ---
Author Organization [facility] [place] [address] Care Team Providers Care Tour Operator Name Role Phone Jarad Keller DNP Primary Care Provider [phone] Reason for Visit * Reason Comments Procedure Encounter Details Date Type Department Care Team (Latest Contact Info) Description 12/07/2019 10:00 AM EDT Procedure [place] [address] Harmeet Arvizu MD [facility] [place] [address] Proliferative diabetic retinopathy of left eye with [...] about driving: We always recommend having a cryogenic transport driver on the day you get an [...] Normal and Not Expected side effects: Call [phone] (Eye Clinic) DAY or NIGHT, HOLIDAY or [...] of the documentation in this encounter. Harmeet Arivzu MD documented in this encounter Plan of [...] of Eylea 2.0 mg left eye Assist: Treating Plant Pumper Anesthesia: Topical Proparacaine and topical 4% Lidocaine Complications: None Procedure: The patient was taken to the minor treatment suite where the patient was reidentified using name and birthdate as critical identifiers. The correct eye as the operative site was reidentified by a preplaced site maria r, and the consent form was actively reviewed by the video library assistant and the surgeon. The left eye was prepped including instillation of Betadine 5% into the left cul de sac for 5 minutes, facial prep with ophthalmic Betadine and placement of a lid speculum. The Surgeon performed hand washing preoperatively, used gloves, and wore a face mask or used no talking technique during the procedudre, as did the hand frame surgical elastic knitter. After topical anesthesia of the injection site [...] call the Eye Clinic or Eye Doctor premium card cancellation clerk, should they develop pain the treated eye, [...] Eye documented in this encounter Care Teams Tour Operator Relationship Specialty Start Date End Date Jarad Keller DNP PCP - General Family Medicine 06/05/18 02/09/21 documented as of this encounter
--- OUTSIDE RECORDS SUMMARY | 2023-12-31 17:03 | XMS_ITS | Encounter Summary ---
[place] [address] Care Team Providers Care Nail Machine Operator Name Role Phone Jarad Keller DNP Primary Care Provider [phone] Encounter Details Date Type Department Care Team (Late st Contact Info) Description 02/06/2020 11:00 AM EDT Office Visit [place] [address] Cathie Farfan MD [facility] [place] [address] ESRD (end stage renal disease); Encounter for [...] was elevated. 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 Since his fall he has been having [...] INSERTION performed by Erasmo Bajwa MD at [facility] ? ? PRO REPAIR COMPLEX RETINA DETACH VITRECTOMY & MEMB PEEL 04/03/2012, 04/03/12 REPAIR COMPLEX RETINAL DETACHMENT, W/ VITRECTOMY, MEMBRANE PEELING performed by Matteo Diane MD at [facility] MAIN OR ? ? PRO REPAIR COMPLEX RETINA DETACH VITRECTOMY & MEMB PEEL 07/31/2012 REPAIR COMPLEX RETINAL DETACHMENT, W/ VITRECTOMY, MEMBRANE PEELING performed by Matteo Diane MD at [facility] MAIN OR ? ? PRO REPAIR COMPLEX RETINA DETACH VITRECTOMY & MEMB PEEL 01/08/2013 REPAIR COMPLEX RETINAL DETACHMENT, W/ VITRECTOMY, MEMBRANE PEELING performed by Matteo Diane MD at [facility] MAIN OR ??? PRO TX EXTENSIVE RETINOPATHY, [...] oral capsule ??? OneTouch Verio Flex meter [facility] TEST BLOOD GLUCOSE [...] unit (V-GO 20) Device 1 each by [facility].(Non-Drug; Combo Route) route [...] Patient: FERNANDA Gurrola DOB(Age): 1960(59y) Med Rec#: [id number] Sex: M [place] [facility] [place]t / Wt: 162(cm)/103(kg) Pt. Loc: Adult Floor BSA: 2.06 Study Date: 07/31/2019 Pt. Type: Inpatient Tape: Referring: Aaron Dover Referring: YANELI Reading: Dev Hernandez ([id number]) Directory Clerk: Efraín Heredia Diagnosis: *Unspecified fall, initial encounter [...] Normal Mid-Posterolateral Normal Mid-Inferior Normal Mid-Inferoseptal Normal Garland-Septal Normal Garland-Anterior Normal [place]-Lateral Normal [place]-Inferior Normal [place]-Tip Normal This report has been electronically signed by: Dev Hernandez MD 07/31/2019 15:10:05 Images reviewed and interpretation verified [facility] Cardiac Ultrasound Laboratory Assessment: Mr. Maurice Rudolph [...] and for putting your dorothy in the [facility] Transplant Program. We will be discussing his case in our multidisciplinary kidney transplant evaluation committee where I will recommend we work towards getting him listed.. Please do not hesitate to contact me if you have any questions. The number rings directly to my office. Sincerely, Cathie Farfan M.D. Solid Organ Transplant Surgery [facility] documented in this encounter Plan of Treatment Not on file documented as of this encounter Visit Diagnoses Diagnosis ESRD (end stage renal disease) End stage renal disease Encounter for pre-transplant evaluation for kidney transplant documented in this encounter Care Teams Nail Machine Operator Relationship Specialty Start Date End Date Jarad Keller DNP PCP - General Family Medicine 06/05/18 02/09/21 documented as of this encounter
--- OUTSIDE RECORDS SUMMARY | 2023-12-31 17:03 | XMS_ITS | Encounter Summary ---
[place] [address] Care Team Providers Care Nurse Transitional Name Role Phone Jarad Keller DNP Primary Care Provider [phone] Encounter Details Date Type Department Care Team (Late st Contact Info) Description 02/06/2020 3:00 PM EDT Office Visit [place] [address] Encounter for pre-transplant evaluation for kidney transplant [...] transplant documented in this encounter Care Teams Nurse Transitional Relationship Specialty Start Date End Date Jarad Keller DNP PCP - General Family Medicine 06/05/18 02/09/21 documented as of this encounter
--- OUTSIDE RECORDS SUMMARY | 2023-12-31 17:03 | XMS_ITS | Encounter Summary ---
Author Organization [facility] [place] [address] Care Team Providers Care Incident Manager Name Role Phone Jarad Keller DNP Primary Care Provider [phone] Encounter Details Date Type Department Care Team (Late st Contact Info) Description 06/17/2020 2:30 PM EST - 06/17/2020 4:30 [place] [id number] Ceasar Gonzalez MD [facility] [place] [address] FISTULAGRAM Social History Tobacco Use Types Packs/Day [...] Glucose, POC 238(H) 65 - 199 mg/dL [facility] Comment: Supplemental ranges: <140 mg/dL before meals <180 mg/dL all other times of the day Blood specimen (specimen) 06/17/2020 4:34 PM EST 06/17/2020 4:34 PM EST Ceasar Gonzalez MD POINT OF CARE TEST O RDERABLES [facility] [place] [address] * (ABNORMAL) POCT Glucose (06/17/2020 2:04 PM EST) [facility] Glucose, POC 243(H) 65 - 199 mg/dL [facility] Comment: Supplemental ranges: <140 mg/dL before meals <180 mg/dL all other times of the day Blood specimen (specimen) 06/17/2020 2:04 PM EST 06/17/2020 2:04 PM EST Ceasar Gonzalez MD POINT OF CARE TEST O FREDERICKERAROSIE Performing Organization Address [facility] Co de Phone Number [facility] [place] [address] * (ABNORMAL) Hemogram (06/17/2020 1:48 PM EST) [facility] White Blood Cell 7.0 4.0 - 9.5 x10(3)/mc L [facility] Red Blood Cell 4.09(L) 4.58 - 5.54 x10(6)/mc L [facility] Hemoglobin 12.9(L) 13.7 - 16.5 gm/dL [facility] Hematocrit 37.3(L) 40.5 - 48.5 % [facility] Mean Cell Volume 91.2 82.9 - 93.1 fL [facility] Mean Cell Hemoglobin 31.5 27.5 - 32.1 pg [facility] Mean Cell Hemoglobin Concentration 34.6 32.0 - 35.7 gm/dL [facility] Platelet 142(L) 145 - 357 x10(3)/mc L [facility] RDW Standard Deviation 43.9 36.0 - 45.0 [facility] RDW coefficient of variation 13.1 11.4 - 13.8 % [facility] Mean Platelet Volume 10.0 7.6 - 12.9 fL [facility] NRBC% auto 0.0 % [facility] NRBC Absolute 0.000 0.000 - 0.000 x10(3)/mc L [facility] Blood specimen (specimen) 06/17/2020 1:48 PM EST 06/17/2020 2:00 PM EST Narrative Resulting Agency Comment Spec In Lab Too Morgan MD HEMATOLOGY ORDERABL ES [facility] [place] [address] * (ABNORMAL) Basic Metabolic Panel (non-fasting) (06/17/2020 1:48 PM EST) Glucose 258(H) 65 - 199 mg/dL [facility] Comment:Diabetes: >=200 mg/d L plus symptoms Blood Urea Nitrogen 15 10 - 20 mg/dL [facility] Creatinine 2.44(H) 0.80 - 1.50 mg/dL [facility] Sodium 137 135 - 145 mmol/L [facility] Potassium 4.0 3.5 - 5.0 mmol/L [facility] Comment: Please note: ??Patients with WBC >100,000 may have falsely elevated Potassium levels. ??For accurate Potassium quantification in these patients send serum separator tube (gold top) for subsequent determinations. ??Contact the Clinical Chemistry Laboratory if there are any questions. Chloride 93(L) 98 - 107 mmol/L [facility] Carbon Dioxide 35(H) 22 - 31 mmol/L [facility] Anion Gap 9 5 - 15 mmol/L [facility] Calcium 9.6 8.5 - 10.5 mg/dL [facility] Est Glomerular Filtration Rate 28(L) >=60 mL/min/1. 73 m?? [facility] Comment: This patient? s [...] Lab Too Morgan MD CHEMISTRY ORDERABLE S [facility] [place] [address] documented in this encounter Visit Diagnoses Not [...] Routine documented in this encounter Care Teams Incident Manager Relationship Specialty Start Date End Date Jarad Keller DNP PCP - General Family Medicine 06/05/18 02/09/21 documented as of this encounter
--- OUTSIDE RECORDS SUMMARY | 2023-12-31 17:03 | XMS_ITS | Encounter Summary ---
[place] [address] Care Team Providers Care Assembly Supervisor Name Role Phone Jarad Keller DANIKA Primary Care Provider [phone] Reason for Visit * Reason Onset Date Comments Appointment 04/18/2020 Encounter Details Date Type Department Care Team (Late st Contact Info) Description 04/18/2020 Telephone [place] [address] Harmeet Arvizu MD [facility] [place] [address] Appointment Social History Tobacco Use Types Packs/Day [...] on filedocumented in this encounter Care Teams Assembly Supervisor Relationship Specialty Start Date End Date Jarad Keller DNP PCP - General Family Medicine 06/05/18 02/09/21 documented as of this encounter
--- OUTSIDE RECORDS SUMMARY | 2023-12-31 17:03 | XMS_ITS | Encounter Summary ---
Author Organization [facility] [place] [address] Care Team Providers Care Biomedical Technician Name Role Phone Jarad Keller DNP Primary Care Provider [phone] Encounter Details Date Type Department Care Team (Latest Contact Info) Description 06/17/2020 1:28 PM EST - 06/17/2020 4:52 PM [facility] Hospital Encounter [place] [phone] Ceasar Gonzalez MD [facility] [place] [address] ESRD on dialysis; Type 2 diabetes mellitus [...] (ABNORMAL) POCT Glucose (06/17/2020 4:34 PM EST) [facility] Glucose, POC 238(H) 65 - 199 mg/dL [facility] Comment: Supplemental ranges: <140 mg/dL before meals <180 mg/dL all other times of the day Blood specimen (specimen) 06/17/2020 4:34 PM EST 06/17/2020 4:34 PM EST Ceasar Gonzalez MD POINT OF CARE TEST O RDERAROSIE Performing Organization Address City/[facility]/ZIP Co de Phone Number [facility] [place] [address] * (ABNORMAL) POCT Glucose (06/17/2020 2:04 PM EST) Pathologist [facility] Glucose, POC 243(H) 65 - 199 mg/dL [facility] Comment: Supplemental ranges: <140 mg/dL before meals <180 mg/dL all other times of the day Blood specimen (specimen) 06/17/2020 2:04 PM EST 06/17/2020 2:04 PM EST Ceasar Gonzalez MD POINT OF CARE TEST O ANTONETTE Performing Organization Address [facility] Co de Phone Number [facility] [place] [address] * (ABNORMAL) Hemogram (06/17/2020 1:48 PM EST) [facility] White Blood Cell 7.0 4.0 - 9.5 x10(3)/mc L [facility] Red Blood Cell 4.09(L) 4.58 - 5.54 x10(6)/mc L [facility] Hemoglobin 12.9(L) 13.7 - 16.5 gm/dL [facility] Hematocrit 37.3(L) 40.5 - 48.5 % [facility] Mean Cell Volume 91.2 82.9 - 93.1 fL [facility] Mean Cell Hemoglobin 31.5 27.5 - 32.1 pg [facility] Mean Cell Hemoglobin Concentration 34.6 32.0 - 35.7 gm/dL [facility] Platelet 142(L) 145 - 357 x10(3)/mc L [facility] RDW Standard Deviation 43.9 36.0 - 45.0 fL [facility] RDW coefficient of variation 13.1 11.4 - 13.8 % [facility] Mean Platelet Volume 10.0 7.6 - 12.9 fL [facility] NRBC% auto 0.0 % [facility] NRBC Absolute 0.000 0.000 - 0.000 x10(3)/mc L [facility] Blood specimen (specimen) 06/17/2020 1:48 PM EST 06/17/2020 2:00 PM EST Narrative Resulting Agency Comment Spec In Lab Too Morgan MD HEMATOLOGY ORDERABL ES [facility] [place] [address] * (ABNORMAL) Basic Metabolic Panel (non-fasting) (06/17/2020 1:48 PM EST) Glucose 258(H) 65 - 199 mg/dL [facility] Comment:Diabetes: >=200 mg/d L plus symptoms Blood Urea Nitrogen 15 10 - 20 mg/dL [facility] Creatinine 2.44(H) 0.80 - 1.50 mg/dL [facility] Sodium 137 135 - 145 mmol/L [facility] Potassium 4.0 3.5 - 5.0 mmol/L [facility] Comment: Please note: ??Patients with WBC >100,000 may have falsely elevated Potassium levels. ??For accurate Potassium quantification in these patients send serum separator tube (gold top) for subsequent determinations. ??Contact the Clinical Chemistry Laboratory if there are any questions. Chloride 93(L) 98 - 107 mmol/L [facility] Carbon Dioxide 35(H) 22 - 31 mmol/L [facility] Anion Gap 9 5 - 15 mmol/L [facility] Calcium 9.6 8.5 - 10.5 mg/dL [facility] Est Glomerular Filtration Rate 28(L) >=60 mL/min/1. 73 m?? [facility] Comment: This patient? s estimated [...] MD CHEMISTRY ORDERABLE S Performing Organization Address City/State/[facility] [place] [address] documented in this encounter Visit Diagnoses Diagnosis [...] Routine documented in this encounter Care Teams Biomedical Technician Relationship Specialty Start Date End Date Jarad Keller DNP PCP - General Family Medicine 06/05/18 02/09/21 documented as of this encounter
--- OUTSIDE RECORDS SUMMARY | 2023-12-31 17:03 | XMS_ITS | Encounter Summary ---
Author Organization [facility] [place] [address] Care Team Providers Care Microsystems Engineer Name Role Phone Jarad Keller DNP Primary Care Provider [phone] Encounter Details Date Type Department Care Team (Late st Contact Info) Description 11/04/2020 2:38 PM EDT [place] [address] Wendie, Too Mcfarlane MD [facility] [address] [place] [address] Herman Turner MD [facility] [place] [address] Anesthesia Record Procedure Summary Procedure Name Responsible [...] (LDA cleanup utility RA#[id number]) 07/18/12 0000 by Giovnaa Lake 12/28/21 1715 by Morgan Wong Incision [...] 1426; metacarpal vein (top of hand), right; [id number] catheter system; Anatomical Landmarks; 22 gauge; Laura [...] Procedure Summary Date: 11/04/20 Room / Location: [facility] INTERVENTIONAL RADIOLOGY / [facility] Anesthesia Start: 1438 Anesthesia Stop: 1613 Procedure: FISTULAGRAM (Left ) Diagnosis: (ESRD (end stage renal disease)) Surgeons: Ceasar Gonzalez MD Responsible Provider: Too Pressley MD Anesthesia Type: MAC ASA Status: 3 All Anesthesia Providers: Anesthesiologist: Too Pressley MD SHELL FREEZING MACHINE OPERATOR: Arnel Rodriguez CRNA Student Nurse Chemical Preparer: Michelle Tee Vitals Value Taken Time BP 165/84 11/04/20 1615 Temp 36.2 ??C (97.2 ??F) 11/04/20 1605 Pulse Resp 16 11/04/20 1615 SpO2 93 % 11/04/20 1615 Pain Level 0 11/04/20 1615 Patient Location: PACU/[facility] Level of Consciousness: Awake and [...] Evaluations 06/17/[address] [facility] INTERVENTIONL RAD ??? PERIPHERAL IRIDOTOMY 04/06/2012 OD Swendris ??? PRO EXTRACAPSULAR CATARACT RMVL INSERTION IO LENS PROSTH CPLX WO ECP 07/18/2012 ??? PRO EXTRACAPSULAR CATARACT RMVL INSERTION IO LENS PROSTH W/O ECP 11/29/2012 CATARACT EXTRACTION, EXTRACAPSULAR, W/ LENS INSERTION performed by Erasmo Bajwa MD at [facility] ? ? PRO REPAIR COMPLEX RETINA DETACH VITRECTOMY & MEMB PEEL 04/03/2012, 04/03/12 REPAIR COMPLEX RETINAL DETACHMENT, W/ VITRECTOMY, MEMBRANE PEELING performed by Matteo Diane MD at [facility] MAIN OR ? ? PRO REPAIR COMPLEX RETINA DETACH VITRECTOMY & MEMB PEEL 07/31/2012 REPAIR COMPLEX RETINAL DETACHMENT, W/ VITRECTOMY, MEMBRANE PEELING performed by Matteo Diane MD at [facility] MAIN OR ? ? PRO REPAIR COMPLEX RETINA DETACH VITRECTOMY & MEMB PEEL 01/08/2013 REPAIR COMPLEX RETINAL DETACHMENT, W/ VITRECTOMY, MEMBRANE PEELING performed by Matteo Diane MD at [facility] MAIN OR ??? PRO TX EXTENSIVE [...] I will be working with either a SHELL FREEZING MACHINE OPERATOR or resident physician. A resident physician means a physician who is in training to be an anesthesiologist. The patient acknowledged these risks and would like to proceed with the anesthesia plan. Sedation and local anesthesia by proceduralist. GA back. Region - Other Informed Consent: Anesthetic plan and risks discussed with patient. Plan discussed with SHELL FREEZING MACHINE OPERATOR. Anesthesia Screening documented in this encounter Plan [...] EDT documented in this encounter Care Teams Microsystems Engineer Relationship Specialty Start Date End Date Jarad Keller DNP PCP - General Family Medicine 06/05/18 02/09/21 documented as of this encounter
--- OUTSIDE RECORDS SUMMARY | 2023-12-31 17:03 | XMS_ITS | Encounter Summary ---
[place] [address] Care Team Providers Care Window/Distribution Clerk Name Role Phone Jarad Keller DNP Primary Care Provider [phone] Encounter Details Date Type Department Care Team (Late st Contact Info) Description 01/01/2020 Telephone [place] [address] Becca Bansal Social History Tobacco Use Types [...] on filedocumented in this encounter Care Teams Window/Distribution Clerk Relationship Specialty Start Date End Date Jarad Keller DNP PCP - General Family Medicine 06/05/18 02/09/21 documented as of this encounter
--- OUTSIDE RECORDS SUMMARY | 2023-12-31 17:03 | XMS_ITS | Encounter Summary ---
[place] [address] Care Team Providers Care Hot Strip Mill Inspector Name Role Phone Jarad Keller DNP Primary Care Provider [phone] Encounter Details Date Type Department Care Team (Late st Contact Info) Description 02/06/2020 Orders Only [place] [address] Daily, Young Ramirez MD [facility] [address] [place] [address] Coronary artery disease, angina presence unspecified, unspecified vessel or lesion type, unspecified whether [place] or transplanted heart; Benign prostatic hyperplasia, unspecified [...] (ABNORMAL) C-peptide (02/06/2020 2:48 PM EDT) Pathologist [facility] C-Peptide 10.8(H) 0.8 - 5.2 ng/mL [facility] Blood specimen (specimen) 02/06/2020 2:48 PM EDT 02/06/2020 2:57 PM EDT Narrative Resulting Agency Comment Spec In Lab Young Coronado MD CHEMISTRY ORDERABLES Performing Organization Address [facility] Co de Phone Number [facility] [place] [address] * PSA (Ultrasensitive) (02/06/2020 2:48 PM EDT) [facility] Prostate Specific Antigen (Ultrasensitive ) 0.57 0.00 - 4.00 ng/mL [facility] Comment: PLEASE NOTE: The above reference interval is intended for healthy males with an intact prostate. Values within this reference interval may indicate recurrence in men who have undergone radical prostatectomy. Blood specimen (specimen) 02/06/2020 2:48 PM EDT 02/06/2020 2:57 PM EDT Narrative Resulting Agency Comment Spec In Lab Young Coronado MD CHEMISTRY ORDERABLES Performing Organization Address City/[facility] Co de Phone Number [facility] [place] [address] * (ABNORMAL) Hemoglobin A1c (02/06/2020 2:48 PM EDT) Pathologist [facility] Hemoglobin A1c 10.0(H) 4.3 - 5.6 % [facility] [...] 1, S67-74 Estimated Average Glucose 239 mg/dL [facility] Comment: [...] into estimated average glucose values. ??Diabetes Care 2008:31(8):3773-5392. Blood specimen (specimen) 02/06/2020 2:48 PM EDT 02/06/2020 2:57 PM EDT Narrative Resulting Agency Comment Spec In Lab Young Coronado MD CHEMISTRY ORDERABLES [facility] [place] [address] * (ABNORMAL) Fructosamine (02/06/2020 2:48 PM EDT) Fructosamine (AUGUST) 556(H) 200 - 285 mcmol/L [facility] Comment: Test Performed by: [facility] - [address] [address] Financial Quantitative Analyst: Marquise Dobbs M.D. Ph.D.; CLIA# [id number] Blood specimen (specimen) 02/06/2020 2:48 PM EDT 02/06/2020 3:59 PM EDT Narrative Resulting Agency Comment Spec In Lab Young Coronado MD LAB SEND OUT ORDERAB LES Performing Organization Address [facility] Co de Phone Number [facility] [place] [address] * Varicella zoster Antibody, IgG (02/06/2020 2:48 PM EDT) Varicella Zoster Antibody IgG Pos [facility] Blood specimen (specimen) 02/06/2020 2:48 PM EDT 02/07/2020 7:33 AM EDT Narrative Resulting Agency Comment Spec In Lab Young Coronado MD IMMUNOLOGY ORDERABLE S Performing Organization Address [facility] de Phone Number [facility] [place] [address] * (ABNORMAL) Toxoplasma Antibody, IgG (02/06/2020 2:48 PM EDT) Toxoplasma Antibody IgG Positive( A) Negative [facility] Blood specimen (specimen) 02/06/2020 2:48 PM EDT 02/07/2020 7:33 AM EDT Narrative Resulting Agency Comment Spec In Lab Young Coronado MD IMMUNOLOGY ORDERABLE S Performing Organization Address [facility] de Phone Number [facility] [place] [address] * Syphilis Screening Antibody with reflex RPR (02/06/2020 2:48 PM EDT) Syphilis IgG/IgM Negative Negative [facility] Blood specimen (specimen) 02/06/2020 2:48 PM EDT 02/06/2020 2:57 PM EDT Narrative Resulting Agency Comment Spec In Lab Young Coronado MD CHEMISTRY ORDERABLES Performing Organization Address [facility]/ZIP Co de Phone Number [facility] [place] [address] * HIV Screen, 4th Generation ([facility]/CGP/APD/NLH) (02/06/2020 2:48 PM EDT) HIV Ab/Ag Screen Negative Negative [facility] Comment: This 4th Generation HIV [...] Coronado MD CHEMISTRY ORDERABLES Performing Organization Address [facility] Co de Phone Number [facility] [place] [address] * (ABNORMAL) HSV 1 and 2 IgG Antibodies (02/06/2020 2:48 PM EDT) HSV Type 1 Ab, IgG Pos(A) Neg [facility] HSV Type 2 Ab, IgG Pos(A) Neg [facility] Blood specimen (specimen) 02/06/2020 2:48 PM EDT 02/07/2020 7:33 AM EDT Narrative Resulting Agency Comment Spec In Lab Young Coronado MD IMMUNOLOGY ORDERABLE S Performing Organization Address City/[facility]/ZIP Co de Phone Number [facility] [place] [address] * (ABNORMAL) Carlie-St Virus Antibodies (02/06/2020 2:48 PM EDT) EBV (VCA) IgG Ab Pos(A) Neg [facility]3] LABORATORY EBV (VCA) IgM Ab Neg Neg [facility]3] LABORATORY EBNA Antibodies Pos(A) Neg [facility] EBV Interpretation Results suggest past infection. [facility] Comment: In most populations, at [...] MD IMMUNOLOGY ORDERABLE S Performing Organization Address [facility]/ZIP Co de Phone Number [facility] [place] [address] * CMV Antibody, IgG (02/06/2020 2:48 PM EDT) CMV IgG Negative Negative [facility] Blood specimen (specimen) 02/06/2020 2:48 PM EDT 02/07/2020 7:33 AM EDT Narrative Resulting Agency Comment Spec In Lab Young Coronado MD IMMUNOLOGY ORDERABLE S Performing Organization Address [facility] Co de Phone Number [facility] [place] [address] * Hepatitis C Antibody (02/06/2020 2:48 PM EDT) Hepatitis C Antibody Negative Negative [facility] Blood specimen (specimen) 02/06/2020 2:48 PM EDT 02/06/2020 2:57 PM EDT Narrative Resulting Agency Comment Spec In Lab Young Coronado MD CHEMISTRY ORDERABLES Performing Organization Address City/[facility] Co de Phone Number [facility] [place] [address] * Hepatitis B Surface Antigen (02/06/2020 2:48 PM EDT) Hepatitis B Surface Antigen Negative Negative [facility] Blood specimen (specimen) 02/06/2020 2:48 PM EDT 02/06/2020 2:57 PM EDT Narrative Resulting Agency Comment Spec In Lab Young Ramirez Daily CHEMISTRY ORDERABLES Performing Organization Address City/[facility]/ZIP Co de Phone Number [facility] [place] [address] * Hepatitis B Surface Antibody (02/06/2020 2:48 PM EDT) Pathologist [facility] Hepatitis B Surface Antibody, Quantitative 52.5 IU/L [facility] Comment: HepB Surface Ab Quant: Unvaccinated: < 8.5 IU/L Vaccinated: > 11.5 IU/L Hepatitis B Surface Antibody Positive [facility] Comment: Patient is considered to be immune to HBV infection. Expected Results: Vaccinated: Positive Unvaccinated: Negative Blood specimen (specimen) 02/06/2020 2:48 PM EDT 02/06/2020 2:57 PM EDT Narrative Resulting Agency Comment Spec In Lab Young Coronado MD CHEMISTRY ORDERABLES Performing Organization Address [facility] Co de Phone Number [facility] [place] [address] * Hepatitis B Core Antibody, IgM (02/06/2020 2:48 PM EDT) Hepatitis B Core IgM Negative Negative [facility] Blood specimen (specimen) 02/06/2020 2:48 PM EDT 02/06/2020 2:57 PM EDT Narrative Resulting Agency Comment Spec In Lab Young Ramirez Daily CHEMISTRY ORDERABLES [facility] [place] [address] * Prothrombin Time (02/06/2020 2:48 PM EDT) Pathologist [facility] Prothrombin Time 11.1 9.4 - 12.5 sec [facility] MD HEMATOLOGY ORDERABLE S Performing Organization Address [facility] Co de Phone Number [facility] [place] [address] * APTT (02/06/2020 2:48 PM EDT) Partial Thromboplastin Time 35 25 - 37 sec [facility] MD HEMATOLOGY ORDERABLE S Performing Organization Address City/[facility] Co de Phone Number [facility] [place] [address] documented in this encounter Visit Diagnoses Diagnosis Coronary artery disease, angina presence unspecified, unspecified vessel or lesion type, unspecified whether [place] or transplanted heart Benign prostatic hyperplasia, unspecified whether lower urinary tract symptoms present Diabetes mellitus due to underlying condition with diabetic nephropathy, 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 End stage renal disease Pre-transplant evaluation for kidney transplant Other specified pre-operative examination documented in this encounter Care Teams Hot Strip Mill Inspector Relationship Specialty Start Date End Date Jarad Keller DNP PCP - General Family Medicine 06/05/18 02/09/21 documented as of this encounter
--- OUTSIDE RECORDS SUMMARY | 2023-12-31 17:03 | XMS_ITS | Encounter Summary ---
[place] [address] Care Team Providers Care Certified Pharmacy Technician Name Role Phone Jarad Keller DANIKA Primary Care Provider [phone] Reason for Referral * Diagnostic Test (Routine) - Closed Specialty Diagnoses / Procedures Referred By Puneet hallman Referred To Contact Radiology Diagnoses ESRD (end stage renal disease) Procedures IR Dialysis Access - AV Fistula Evaluations Too Morgan MD [facility] [place] [address] [facility] [place] [address] Referral ID Status Reason Start Date Expiration Date V isits Requested Visits Authorized [id number] Closed Specialty Service Requested 06/03/2020 12/01/2021 1 1 Encounter Details Date Type Department Care Team (Late st Contact Info) Description 06/03/2020 Orders Only [place] [address] Too Morgan MD [facility] [address] ESRD (end stage renal disease) Social History [...] experiencing decreased flows. ??No prior interventions by [facility] IR. 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 Remainder of patient's medical and surgical history, allergies, medications, and social/family history obtained below as previously outlined in patient's medical record. Per patient he fistula created in [place] about 5 years ago. He has undergone one prior fistulagram in [place] with intervention. Technique: After obtaining informed consent, [...] used to dilate the cephalic stenosis. ??Post WELDING TEACHER radial artery arteriography showed resolution of the [...] stenosis AV anastomosis resolved with 5 mm WELDING TEACHER 3. ??Moderate/severe 2 cm juxta anastomotic cephalic vein stenosis resolved with 6 mm WELDING TEACHER. 4. ??Outflow from elbow centrally via both cephalic and basilic systems without central stenoses. 5. ??Coil from prior intervention at outside hospital in the forearm approximately 4 cm central to the AV anastomosis. ??Presumably placed in a side branch vein. Plan/Disposition: 1) To Same day recovery room, may discharge to home when meets criteria. 2) left upper extremity dialysis fistula ready for use. Casing Blower(s): Resident/Fellow: Narinder Rivera Attending: Dr. Larson. ??I, [...] disease documented in this encounter Care Teams Certified Pharmacy Technician Relationship Specialty Start Date End Date Jarad Keller DNP PCP - General Family Medicine 06/05/18 02/09/21 documented as of this encounter
--- OUTSIDE RECORDS SUMMARY | 2023-12-31 17:03 | XMS_ITS | Encounter Summary ---
[place] [address] Care Team Providers Care Leadership Development Instructor Name Role Phone Jarad Keller DNP Primary Care Provider [phone] Encounter Details Date Type Department Care Team (Late st Contact Info) Description 02/01/2020 Notes [place] [address] Simi Meek MSW Social History Tobacco Use [...] Country do you reside in? [place] 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 Current Living Situation: Rent [...] he was moving when he met to [place]. He came back 2 years ago. He is not part of any scientology or other social groups. I really don't [...] *No Product type* / Patient also has [place] Medicaid. Financial Status: Are bills up to date? Electric, water, oil, etc. are paid by the $1 million trust from the [facility] for his . Can you afford [...] Adriana Lopez (sister) as DPOA followed by Iva Blue (sister) as alternate. Possible Donors: He does not have any at this point in time. His son wouldn't be eligible as he's too big. Living donor fund explained? Yes. Transportation: [facility] ([email or web address] to all of his appointments. Patient's understanding of their diagnosis: He says his kidneys have failed. Barriers to treatment plan: None noted at this time. MICA BUILDER plan: Worker to continue to follow Maurice if the team decides to move forward with listing Maurice for transplant. GAURI VERNON Transplant Spreader Pager [phone] documented in this encounter Plan of Treatment Not on file documented as of this encounter Visit Diagnoses Not on filedocumented in this encounter Care Teams Leadership Development Instructor Relationship Specialty Start Date End Date Jarad Keller DNP PCP - General Family Medicine 06/05/18 02/09/21 documented as of this encounter
--- OUTSIDE RECORDS SUMMARY | 2023-12-31 17:03 | XMS_ITS | Encounter Summary ---
[place] [address] Care Team Providers Care Licensed Massage Therapist Name Role Phone Jarad Keller DNP Primary Care Provider [phone] Encounter Details Date Type Department Care Team (Late st Contact Info) Description 01/14/2020 Abstract [place] [address] Jessica Santos Social History Tobacco Use Types [...] on filedocumented in this encounter Care Teams Licensed Massage Therapist Relationship Specialty Start Date End Date Jarad Keller DNP PCP - General Family Medicine 06/05/18 02/09/21 documented as of this encounter
--- OUTSIDE RECORDS SUMMARY | 2023-12-31 17:03 | XMS_ITS | Encounter Summary ---
[place] [address] Care Team Providers Care Olive Packer Name Role Phone Jarad Keller DNP Primary Care Provider [phone] Encounter Details Date Type Department Care Team (Late st Contact Info) Description 08/27/2020 Telephone [place] [id number] Cheryl [address] [facility] [place] [address] Social History Tobacco Use Types Packs/Day Years [...] nutrition-relatedgoal previously established for kidney transplantation. This senior medical writer unable to contact Maurice as mobile number listed in chart not belonging to him. This senior medical writer obtained pt's 's (Kaye) phone number from dialysis center - number disconnected. Asked dialysis center to inform Maurice tomorrow when he c omes in for dialysis treatment that senior medical writer attempting to get in touch with him and to give senior medical writer acall when pt gets a chance. call center specialist agreeable to plan. Thank you, Cheryl Presley RD documented in this encounter Plan of Treatment Not on file documented as of this encounter Visit Diagnoses Not on filedocumented in this encounter Care Teams Olive Packer Relationship Specialty Start Date End Date Jarad Keller DNP PCP - General Family Medicine 06/05/18 02/09/21 documented as of this encounter"
--- OUTSIDE RECORDS SUMMARY | 2023-12-31 17:03 | XMS_ITS | Encounter Summary ---
[place] [address] Care Team Providers Care Investigator Vice Name Role Phone Jarad Keller DNP Primary Care Provider [phone] Encounter Details Date Type Department Care Team (Late st Contact Info) Description 05/20/2020 Orders Only [place] [address] Nettie Davis, BUS PERSON DISHWASHER [facility] [place] [address] Social History Tobacco Use Types Packs/Day Years [...] on filedocumented in this encounter Care Teams Investigator Vice Relationship Specialty Start Date End Date Jarad Keller DNP PCP - General Family Medicine 06/05/18 02/09/21 documented as of this encounter
--- OUTSIDE RECORDS SUMMARY | 2023-12-31 17:03 | XMS_ITS | Encounter Summary ---
[place] [address] Care Team Providers Care Belt Changer Name Role Phone Jarad Keller DANIKA Primary Care Provider [phone] Encounter Details Date Type Department Care Team (Latest Contact Info) Description 02/06/2020 3:30 PM EDT Laboratory Appointment Lab [address] [place] [address] Coronary artery disease, angina presence unspecified, unspecified vessel or lesion type, unspecified whether [place] or transplanted heart; Benign prostatic hyperplasia, unspecified [...] unspecified vessel or lesion type, unspecified whether [place] or transplanted heart Benign prostatic hyperplasia, unspecified [...] unspecified vessel or lesion type, unspecified whether [place] or transplanted heart Benign prostatic hyperplasia, unspecified [...] unspecified vessel or lesion type, unspecified whether [place] or transplanted heart Benign prostatic hyperplasia, unspecified [...] unspecified vessel or lesion type, unspecified whether [place] or transplanted heart Benign prostatic hyperplasia, unspecified [...] unspecified vessel or lesion type, unspecified whether [place] or transplanted heart Benign prostatic hyperplasia, unspecified [...] unspecified vessel or lesion type, unspecified whether [place] or transplanted heart Benign prostatic hyperplasia, unspecified whether lower urinary tract symptoms present Diabetes mellitus due to underlying condition with diabetic nephropathy, 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 End stage renal disease Pre-transplant evaluation for kidney transplant ABO/RH TYPING Routine 02/06/2020 2:48 PM EDT Coronary artery disease, angina presence unspecified, unspecified vessel or lesion type, unspecified whether [place] or transplanted heart Benign prostatic hyperplasia, unspecified whether lower urinary tract symptoms present Diabetes mellitus due to underlying condition with diabetic nephropathy, 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 End stage renal disease Pre-transplant evaluation for kidney transplant HC VENIPUNCTURE Routine 02/06/2020 2:48 PM EDT Coronary artery disease, angina presence unspecified, unspecified vessel or lesion type, unspecified whether [place] or transplanted heart Benign prostatic hyperplasia, unspecified [...] unspecified vessel or lesion type, unspecified whether [place] or transplanted heart Benign prostatic hyperplasia, unspecified [...] unspecified vessel or lesion type, unspecified whether [place] or transplanted heart Benign prostatic hyperplasia, unspecified [...] unspecified vessel or lesion type, unspecified whether [place] or transplanted heart Benign prostatic hyperplasia, unspecified [...] unspecified vessel or lesion type, unspecified whether [place] or transplanted heart Benign prostatic hyperplasia, unspecified [...] unspecified vessel or lesion type, unspecified whether [place] or transplanted heart Benign prostatic hyperplasia, unspecified [...] unspecified vessel or lesion type, unspecified whether [place] or transplanted heart Benign prostatic hyperplasia, unspecified [...] unspecified vessel or lesion type, unspecified whether [place] or transplanted heart Benign prostatic hyperplasia, unspecified whether lower urinary tract symptoms present Diabetes mellitus due to underlying condition with diabetic nephropathy, 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 End stage renal disease Pre-transplant evaluation for kidney transplant ANTIBODY SCREEN Routine 02/06/2020 2:48 PM EDT Coronary artery disease, angina presence unspecified, unspecified vessel or lesion type, unspecified whether [place] or transplanted heart Benign prostatic hyperplasia, unspecified [...] unspecified vessel or lesion type, unspecified whether [place] or transplanted heart Benign prostatic hyperplasia, unspecified [...] unspecified vessel or lesion type, unspecified whether [place] or transplanted heart Benign prostatic hyperplasia, unspecified [...] unspecified vessel or lesion type, unspecified whether [place] or transplanted heart Benign prostatic hyperplasia, unspecified [...] unspecified vessel or lesion type, unspecified whether [place] or transplanted heart Benign prostatic hyperplasia, unspecified whether lower urinary tract symptoms present Diabetes mellitus due to underlying condition with diabetic nephropathy, 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 End stage renal disease Pre-transplant evaluation for kidney transplant documented in this encounter Results * ABORH Recheck Status (02/06/2020 2:48 PM EDT) ABORH Type Recheck Completed [facility] Blood specimen (specimen) 02/06/2020 2:48 PM EDT 02/06/2020 2:57 PM EDT Narrative Resulting Agency Comment Spec In Lab Young Coronado MD BLOOD BANK LAB ORDER ROBBIE [facility] [place] [address] * Antibody screen (02/06/2020 2:48 PM EDT) Pathologist [facility] Ab Screen Interp Negative [facility] Expires at [id number] on: 02/09/2020 [facility] Blood specimen (specimen) 02/06/2020 2:48 PM EDT 02/06/2020 2:57 PM EDT Narrative Resulting Agency Comment Spec In Lab Young Coronado MD BLOOD BANK LAB ORDER ROBBIE Performing Organization Address City/[facility]/ZIP Co de Phone Number [facility] [place] [address] * ABO/Rh Typing (02/06/2020 2:48 PM EDT) ABORH Type A Pos [facility] Blood specimen (specimen) 02/06/2020 2:48 PM EDT 02/06/2020 2:57 PM EDT Narrative Resulting Agency Comment Spec In Lab Young Coronado MD BLOOD BANK LAB ORDER ROBBIE [facility] [place] [address] * APTT (02/06/2020 2:48 PM EDT) [facility] Partial Thromboplastin Time 35 25 - 37 sec [facility] Comment: The PTT is NOT appropriate for heparin monitoring. Use the Anti-Xa level for heparin monitoring (HEP UFH) or LMWH monitoring (HEP LMW). A PTT less than 37 seconds generally indicates adequate hemostasis. Blood specimen (specimen) 02/06/2020 2:48 PM EDT 02/06/2020 2:57 PM EDT Narrative Resulting Agency Comment Spec In Lab Young Coronado MD HEMATOLOGY ORDERABLE S Performing Organization Address [facility] de Phone Number [facility] [place] [address] * Prothrombin Time (02/06/2020 2:48 PM EDT) Prothrombin Time 11.1 9.4 - 12.5 sec [facility] International Normalization Ratio 1.0 [facility] Comment: An INR <2.0 [...] MD HEMATOLOGY ORDERABLE S Performing Organization Address [facility] Co de Phone Number [facility] [place] [address] * Hepatitis B Core Antibody, IgM (02/06/2020 2:48 PM EDT) Hepatitis B Core IgM Negative Negative [facility] Blood specimen (specimen) 02/06/2020 2:48 PM EDT 02/06/2020 2:57 PM EDT Narrative Resulting Agency Comment Spec In Lab Young Coronado MD CHEMISTRY ORDERABLES Performing Organization Address [facility] Co de Phone Number [facility] [place] [address] * Hepatitis B Surface Antibody (02/06/2020 2:48 PM EDT) Hepatitis B Surface Antibody, Quantitative 52.5 IU/L [facility] Comment: HepB Surface Ab [...] Coronado MD CHEMISTRY ORDERABLES Performing Organization Address City/[facility]/ZIP Co de Phone Number [facility] [place] [address] * Hepatitis B Surface Antigen (02/06/2020 2:48 PM EDT) Hepatitis B Surface Antigen Negative Negative [facility] Blood specimen (specimen) 02/06/2020 2:48 PM EDT 02/06/2020 2:57 PM EDT Narrative Resulting Agency Comment Spec In Lab Young Coronado MD CHEMISTRY ORDERABLES Performing Organization Address City/[facility]/ZIP Co de Phone Number [facility] [place] [address] * Hepatitis C Antibody (02/06/2020 2:48 PM EDT) Hepatitis C Antibody Negative Negative [facility] Blood specimen (specimen) 02/06/2020 2:48 PM EDT 02/06/2020 2:57 PM EDT Narrative Resulting Agency Comment Spec In Lab Young Coronado MD CHEMISTRY ORDERABLES Performing Organization Address City/[facility]/ZIP Co de Phone Number [facility] [place] [address] * CMV Antibody, IgG (02/06/2020 2:48 PM EDT) CMV IgG Negative Negative [facility] Blood specimen (specimen) 02/06/2020 2:48 PM EDT 02/07/2020 7:33 AM EDT Narrative Resulting Agency Comment Spec In Lab Young Coronado MD IMMUNOLOGY ORDERABLE S Performing Organization Address City/[facility]/ZIP Co de Phone Number [facility] [place] [address] * (ABNORMAL) Carlie-St Virus Antibodies (02/06/2020 2:48 PM EDT) EBV (VCA) IgG Ab Pos(A) Neg [facility] EBV (VCA) IgM Ab Neg Neg [facility] EBNA Antibodies Pos(A) Neg [facility] EBV Interpretation Results suggest past infection. [facility] Comment: In most populations, [...] MD IMMUNOLOGY ORDERABLE S Performing Organization Address City/[facility]/ZIP Co de Phone Number [facility] [place] [address] * (ABNORMAL) HSV 1 and 2 IgG Antibodies (02/06/2020 2:48 PM EDT) HSV Type 1 Ab, IgG Pos(A) Neg [facility] HSV Type 2 Ab, IgG Pos(A) Neg [facility] Blood specimen (specimen) 02/06/2020 2:48 PM EDT 02/07/2020 7:33 AM EDT Narrative Resulting Agency Comment Spec In Lab Young Coronado MD IMMUNOLOGY ORDERABLE S Performing Organization Address [facility] Co de Phone Number [facility] [place] [address] * HIV Screen, 4th Generation (MC/CGP/APD/NLH) (02/06/2020 2:48 PM EDT) HIV Ab/Ag Screen Negative Negative [facility] Coronado MD CHEMISTRY ORDERABLES Performing Organization Address [facility]/ZIP Co de Phone Number [facility] [place] [address] * Syphilis Screening Antibody with reflex RPR (02/06/2020 2:48 PM EDT) Pathologist [facility] Syphilis IgG/IgM Negative Negative [facility] Blood specimen (specimen) 02/06/2020 2:48 PM EDT 02/06/2020 2:57 PM EDT Narrative Resulting Agency Comment Spec In Lab Young Coronado MD CHEMISTRY ORDERABLES Performing Organization Address [facility] Co de Phone Number [facility] [place] [address] * (ABNORMAL) Toxoplasma Antibody, IgG (02/06/2020 2:48 PM EDT) Toxoplasma Antibody IgG Positive( A) Negative [facility] Blood specimen (specimen) 02/06/2020 2:48 PM EDT 02/07/2020 7:33 AM EDT Narrative Resulting Agency Comment Spec In Lab Young Coronado MD IMMUNOLOGY ORDERABLE S Performing Organization Address [facility]/ZIP Co de Phone Number [facility] [place] [address] * Varicella zoster Antibody, IgG (02/06/2020 2:48 PM EDT) Varicella Zoster Antibody IgG Pos [facility] Blood specimen (specimen) 02/06/2020 2:48 PM EDT 02/07/2020 7:33 AM EDT Narrative Resulting Agency Comment Spec In Lab Young Coronado MD IMMUNOLOGY ORDERABLE S Performing Organization Address [facility] de Phone Number [facility] [place] [address] * (ABNORMAL) Fructosamine (02/06/2020 2:48 PM EDT) Pathologist [facility] Fructosamine (AUGUST) 556(H) 200 - 285 mcmol/L [facility] Comment: Test Performed by: [facility] [place] [address] Instrument Calibrator: Marquise Dobbs M.D. Ph.D.; CLIA# [id number] Blood specimen (specimen) 02/06/2020 2:48 PM EDT 02/06/2020 3:59 PM EDT Narrative Resulting Agency Comment Spec In Lab Young Coronado MD LAB SEND OUT ORDERAB LES Performing Organization Address [facility] Co de Phone Number [facility] [place] [address] * (ABNORMAL) Hemoglobin A1c (02/06/2020 2:48 PM [...] 1, S67-74 Estimated Average Glucose 239 mg/dL [facility] [...] into estimated average glucose values. ??Diabetes Care 2008:31(8):9414-7263. Blood specimen (specimen) 02/06/2020 2:48 PM EDT 02/06/2020 2:57 PM EDT Narrative Resulting Agency Comment Spec In Lab Young Coronado MD CHEMISTRY ORDERABLES [facility] [place] [address] * PSA (Ultrasensitive) (02/06/2020 2:48 PM EDT) Prostate Specific Antigen (Ultrasensitive ) 0.57 0.00 - 4.00 ng/mL [facility] Comment: PLEASE NOTE: The above reference interval is intended for healthy males with an intact prostate. Values within this reference interval may indicate recurrence in men who have undergone radical prostatectomy. Blood specimen (specimen) 02/06/2020 2:48 PM EDT 02/06/2020 2:57 PM EDT Narrative Resulting Agency Comment Spec In Lab Young Ramirez Daily CHEMISTRY ORDERABLES Performing Organization Address City/[facility] Co de Phone Number [facility] [place] [address] * (ABNORMAL) C-peptide (02/06/2020 2:48 PM EDT) C-Peptide 10.8(H) 0.8 - 5.2 ng/mL [facility] Blood specimen (specimen) 02/06/2020 2:48 PM EDT 02/06/2020 2:57 PM EDT Narrative Resulting Agency Comment Spec In Lab Young Ramirez Daily CHEMISTRY ORDERABLES Performing Organization Address City/[facility] Co de Phone Number [facility] [place] [address] documented in this encounter Visit Diagnoses Diagnosis Coronary artery disease, angina presence unspecified, unspecified vessel or lesion type, unspecified whether [place] or transplanted heart Benign prostatic hyperplasia, unspecified whether lower urinary tract symptoms present Diabetes mellitus due to underlying condition with diabetic nephropathy, 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
--- OUTSIDE RECORDS SUMMARY | 2023-12-31 17:03 | XMS_ITS | Encounter Summary ---
Author Organization [facility] [place] [place] [address] Care Team Providers Care Agricultural Produce Sorter Name Role Phone Jarad Keller DNP Primary Care Provider [phone] Reason for Visit * Reason Onset Date Comments Follow-up 05/08/2020 Encounter Details Date Type Department Care Team (Late st Contact Info) Description 05/08/2020 [place] [id number] Harmeet Arvizu MD [facility] [place] [address] Follow-up Social History Tobacco Use Types Packs/Day [...] call and schedule follow up from recent [facility] visit for Dr Arvizu:Follow up retina [...] on filedocumented in this encounter Care Teams Agricultural Produce Sorter Relationship Specialty Start Date End Date Jarad Keller DNP PCP - General Family Medicine 06/05/18 02/09/21 documented as of this encounter
--- OUTSIDE RECORDS SUMMARY | 2023-12-31 17:03 | XMS_ITS | Encounter Summary ---
[place] [address] Care Team Providers Care Winch Truck Operator Name Role Phone Jarad Keller DNP Primary Care Provider [phone] Encounter Details Date Type Department Care Team (Late st Contact Info) Description 02/06/2020 2:00 PM EDT Office Visit [place] [address] Sherie Mccallum, SLAB POLISHER [facility] [place] [address] Pre-transplant evaluation for kidney transplant Social History [...] Cardiac stress test - every year - Rail Layer Does not have a candy separator hard 4. Labs: Serologies (immune status), ABO verification [...] his medical records can be found at [facility] and . Care providers include CHINO Casanova MD and Dr. Roy (Endocrine). - He would like to complete their transplant specific testing at [facility] or [facility] (pt is indifferent to either) so we [...] examination documented in this encounter Care Teams Winch Truck Operator Relationship Specialty Start Date End Date Jarad Keller DNP PCP - General Family Medicine 06/05/18 02/09/21 documented as of this encounter
--- OUTSIDE RECORDS SUMMARY | 2023-12-31 17:03 | XMS_ITS | Encounter Summary ---
[place] [address] Care Team Providers Care Global Marketing Operations Manager Name Role Phone Jarad Keller DANIKA Primary Care Provider [phone] Encounter Details Date Type Department Care Team (Late st Contact Info) Description 01/18/2020 Telephone Solid [place] [address] Sherie Mccallum, ENGINE [facility] [place] [address] Social History Tobacco Use Types Packs/Day Years [...] evaluation. Cause of Kidney Disease: Diabetes Dialysis: [address] [place] [address] Height: 5'4 Weight: 100kg BMI: 37.8 Past [...] INSERTION performed by Erasmo Bajwa MD at [facility] ? ? PRO REPAIR COMPLEX RETINA DETACH VITRECTOMY & MEMB PEEL 04/03/2012, 04/03/12 REPAIR COMPLEX RETINAL DETACHMENT, W/ VITRECTOMY, MEMBRANE PEELING performed by Matteo Diane MD at [facility] MAIN OR ? ? PRO REPAIR COMPLEX RETINA DETACH VITRECTOMY & MEMB PEEL 07/31/2012 REPAIR COMPLEX RETINAL DETACHMENT, W/ VITRECTOMY, MEMBRANE PEELING performed by Matteo Diane MD at [facility] MAIN OR ? ? PRO REPAIR COMPLEX RETINA DETACH VITRECTOMY & MEMB PEEL 01/08/2013 REPAIR COMPLEX RETINAL DETACHMENT, W/ VITRECTOMY, MEMBRANE PEELING performed by Matteo Diane MD at [facility] MAIN OR ??? PRO TX EXTENSIVE [...] on filedocumented in this encounter Care Teams Global Marketing Operations Manager Relationship Specialty Start Date End Date Jarad Keller DNP PCP - General Family Medicine 06/05/18 02/09/21 documented as of this encounter
--- OUTSIDE RECORDS SUMMARY | 2023-12-31 17:03 | XMS_ITS | Encounter Summary ---
Author Organization [facility] [place] [address] Care Team Providers Care Regulatory Compliance Engineer Name Role Phone Jarad Keller DNP Primary Care Provider [phone] Reason for Visit * Reason Comments Procedure Encounter Details Date Type Department Care Team (Latest Contact Info) Description 01/04/2020 6:15 PM EDT Procedure [place] [address] Harmeet Arvizu MD [facility] [place] [address] Proliferative diabetic retinopathy of left eye with [...] about driving: We always recommend having a charter coach driver on the day you get an [...] Normal and Not Expected side effects: Call [phone] (Eye Clinic) DAY or NIGHT, HOLIDAY or WEEKEND if you experience any of the following: = Severe, increasing pain in the eye = Significant, dramatic vision loss = Redness on and around the eye that gets worse, not better = Severe light sensitivity Call [phone] or go to the Emergency room immediately [...] of Eylea 2.0 mg left eye Assist: Financial Aid Coordinator Anesthesia: Topical Proparacaine and topical 4% Lidocaine Complications: None Procedure: The patient was taken to the minor treatment suite where the patient was reidentified using name and birthdate as critical identifiers. The correct eye as the operative site was reidentified by a preplaced site maria r, and the consent form was actively reviewed by the assistant kitchen manager and the surgeon. The left eye was prepped including instillation of Betadine 5% into the left cul de sac for 5 minutes, facial prep with ophthalmic Betadine and placement of a lid speculum. The Surgeon performed hand washing preoperatively, used gloves, and wore a face mask or used no talking technique during the procedudre, as did the surgical supply assistant. After topical anesthesia of the injection [...] call the Eye Clinic or Eye Doctor resolution analyst, should they develop pain the treated eye, [...] Eye documented in this encounter Care Teams Regulatory Compliance Engineer Relationship Specialty Start Date End Date Jarad Keller DNP PCP - General Family Medicine 06/05/18 02/09/21 documented as of this encounter
--- OUTSIDE RECORDS SUMMARY | 2023-12-31 17:03 | XMS_ITS | Encounter Summary ---
[place] [address] Care Team Providers Care Church History Teacher Name Role Phone Jarad Keller DNP Primary Care Provider [phone] Encounter Details Date Type Department Care Team (Latest Contact Info) Description 01/04/2020 1:45 PM EDT Office [place] [address] Harmeet Arvizu MD [facility] [place] [address] Proliferative diabetic retinopathy of left eye with [...] schedule the following: Follow up with Dr. Gmaing next available for neuro-oph consult. 4-6 weeks [...] category documented in this encounter Care Teams Church History Teacher Relationship Specialty Start Date End Date Jarad Keller DNP PCP - General Family Medicine 06/05/18 02/09/21 documented as of this encounter
--- OUTSIDE RECORDS SUMMARY | 2023-12-31 17:03 | XMS_ITS | Encounter Summary ---
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 This [...] category documented in this encounter Care Teams Building Code Inspector Relationship Specialty Start Date End Date Jarad Keller DNP PCP - General Family Medicine 06/05/18 02/09/21 documented as of this encounter
--- OUTSIDE RECORDS SUMMARY | 2023-12-31 17:03 | XMS_ITS | Encounter Summary ---
Author Organization [facility] [place] [address] Care Team Providers Care Airframe And Power Plant Mechanic Name Role Phone Jarad Keller DANIKA Primary Care Provider [phone] Reason for Referral * Consultation (Routine) - Closed Specialty Diagnoses / Procedures Referred By Puneet hallman Referred To Contact Transplant Diagnoses ESRD (end stage renal disease) Procedures Txp Too Lynn MD [facility] [place] [address] Young Watts MD [facility] [place] [address] Referral ID Status Reason Start Date Expiration Date V isits Requested Visits Authorized [id number] Closed Consult, Test & Treat 12/18/2019 12/17/2020 1 1 Encounter Details Date Type Department Care Team (Late st Contact Info) Description 12/18/2019 Orders Only [place] [address] Too Morgan MD [facility] [place] [address] ESRD (end stage renal disease) (Primary Dx); [...] examination documented in this encounter Care Teams Airframe And Power Plant Mechanic Relationship Specialty Start Date End Date Jarad Keller DNP PCP - General Family Medicine 06/05/18 02/09/21 documented as of this encounter
--- OUTSIDE RECORDS SUMMARY | 2023-12-31 17:03 | XMS_ITS | Encounter Summary ---
Author Organization [facility] [place] [address] Care Team Providers Care Check Out Clerk Name Role Phone Jarad Keller DNP Primary Care Provider [phone] Encounter Details Date Type Department Care Team (Latest Contact Info) Description 11/04/2020 1:16 PM EDT - 11/04/2020 5:15 PM EDT Hospital Encounter [place] [id number] Ceasar Gonzalez MD [facility] [place] [address] Discharge Disposition: Home Social History Tobacco Use [...] Morrow RN - 11/04/2020 4:35 PM EDT [facility] Vascular and Interventional Radiology Discharge Instructions [...] is during regular office hours, please call [phone]. If it is after regular office hours, or on weekends or holidays, please call [phone] and ask to speak to the District [address] Justice unit manager convenience stores for Interventional Radiology. You have received medication [...] Glucose, POC 172 65 - 199 mg/dL [facility] Comment: Supplemental ranges: <140 mg/dL before meals <180 mg/dL all other times of the day Blood 11/04/2020 1:59 PM EDT 11/04/2020 1:59 PM EDT Ceasar Gonzalez MD POINT OF CARE TEST O RDERABLES Performing Organization Address [facility] Co de Phone Number [facility] [place] [address] * Potassium (11/04/2020 1:34 PM EDT) Potassium 3.9 3.5 - 5.0 mmol/L [facility] Comment: Please note: [...] Vanessa MD CHEMISTRY ORDERABLES Performing Organization Address [facility] Co de Phone Number [facility] [place] [address] documented in this encounter Visit Diagnoses Not on filedocumented in this encounter Active and Recently Administered Medications Care Teams Check Out Clerk Relationship Specialty Start Date End Date Jarad Keller DNP PCP - General Family Medicine 06/05/18 02/09/21 documented as of this encounter
--- OUTSIDE RECORDS SUMMARY | 2023-12-31 17:04 | XMS_ITS | Encounter Summary ---
Author Organization [facility] [place] [address] Care Team Providers Care Nail Cutter Name Role Phone Jarad Keller DANIKA Primary Care Provider [phone] Encounter Details Date Type Department Care Team (Latest Contact Info) Description 08/29/2019 2:30 PM EDT TH Visit (TeleHealth) [place] [address] Ceasar Roy MD [facility] [place] [address] Type 2 diabetes mellitus with hyperglycemia, with [...] Since that time, he was admitted to [facility] in July 2019 for fall leading to significant head/spine injuries. He was discharged a few weeks ago and has been at a rehab facility in [facility] where he was at the time of [...] unit (V-GO 20) Device, 1 each by [facility].(Non-Drug; Combo Route) route [...] for repeat telehealth visit Ceasar Roy MD Brick Offbearercallisthenics instructor Endocrinology Section [facility] documented in this encounter Plan of Treatment Not on file documented as of this encounter Visit Diagnoses Diagnosis Type 2 diabetes mellitus with hyperglycemia, with long-term current use of insulin documented in this encounter Care Teams Nail Cutter Relationship Specialty Start Date End Date Jarad Keller DNP PCP - General Family Medicine 06/05/18 02/09/21 documented as of this encounter
--- OUTSIDE RECORDS SUMMARY | 2023-12-31 17:04 | XMS_ITS | Encounter Summary ---
[place] [address] Care Team Providers Care Lollypop Machine Operator Name Role Phone Jarad Keller DNP Primary Care Provider [phone] Encounter Details Date Type Department Care Team (Late st Contact Info) Description 08/23/2019 [place] [address] Mariajose Mitchell Social History Tobacco Use Types [...] at a local hospital. CT done at [facility] on 08/12. Please review CT in edh, does the patient need further f/u or a TOV scheduled with you? Thank you, Mariajose * Telephone Encounter - Mariajose Mitchell - 08/23/2019 2:33 PM EDT Pt scheduled for f/u 08/16 canceled due to being inpatient at local hospital. Called and pt had CT done at [facility]. for CT Head from 08/12 to be pushed for review by [facility]B or DPS. Follow-up will be scheduled in the Neurosurgical Clinic in 2 weeks. Follow-up imaging ordered: CT Head documented in this encounter Plan of Treatment Not on file documented as of this encounter Visit Diagnoses Not on filedocumented in this encounter Care Teams Lollypop Machine Operator Relationship Specialty Start Date End Date Jarad Keller DNP PCP - General Family Medicine 06/05/18 02/09/21 documented as of this encounter
--- OUTSIDE RECORDS SUMMARY | 2023-12-31 17:04 | XMS_ITS | Encounter Summary ---
[place] [address] Care Team Providers Care In Flight Technician Name Role Phone Jarad Keller DNP Primary Care Provider [phone] Encounter Details Date Type Department Care Team ([facility] Contact Info) Description 09/14/2019 Telephone [place] [address] Cherelle Sims LPN Social History Tobacco Use [...] Received message from patient stating that [facility] in [place], [place] does not have his prescriptions for VGo insulin pump, or his insulin. He would like this done today! Last visit was via , but noted scripts had gone to [facility] in [place], [place]. I called [facility], and they state theydo not stock the VGo insulin pump; that would have to come from a Durable Medical Equipment supplier (DME). Patient may require long acting insulin until pump can be obtained, all scripts to go to [facility] in [place], [place]. *At this time, patient is not aware of DME need for pump. Note forwarded to Dr. Roy documented in this encounter Plan of Treatment Not on file documented as of this encounter Visit Diagnoses Not on filedocumented in this encounter Care Teams In Flight Technician Relationship Specialty Start Date End Date Jarad Keller DNP PCP - General Family Medicine 06/05/18 02/09/21 documented as of this encounter
--- OUTSIDE RECORDS SUMMARY | 2023-12-31 17:04 | XMS_ITS | Encounter Summary ---
[place] [address] Care Team Providers Care Music Pastor Name Role Phone Jarad Keller DNP Primary Care Provider [phone] Encounter Details Date Type Department Care Team (Late st Contact Info) Description 08/13/2019 Ancillary Procedure [place] [address] Lavern Velez APRN [facility] [place] [address] Social History Tobacco Use Types Packs/Day Years [...] IMG FILM LIBRARY ORDERABLES Performing Organization Address City/State/[facility] Co de Phone Number [place], [place] documented in this encounter Visit Diagnoses Not on filedocumented in this encounter Care Teams Music Pastor Relationship Specialty Start Date End Date Jarad Keller DNP PCP - General Family Medicine 06/05/18 02/09/21 documented as of this encounter
--- OUTSIDE RECORDS SUMMARY | 2023-12-31 17:04 | XMS_ITS | Encounter Summary ---
[place] [address] Care Team Providers Care Restaurant General Manager Name Role Phone Jarad Keller DNP Primary Care Provider [phone] Encounter Details Date Type Department Care Team (Late st Contact Info) Description 08/16/2019 Ancillary Procedure [place] [address] Jarad Keller DNP [address] [place] [address] Social History Tobacco Use Types [...] [facility] Co de Phone Number [place], [place] documented in this encounter Visit Diagnoses Not on filedocumented in this encounter Care Teams Restaurant General Manager Relationship Specialty Start Date End Date Jarad Keller DNP PCP - General Family Medicine 06/05/18 02/09/21 documented as of this encounter
--- OUTSIDE RECORDS SUMMARY | 2023-12-31 17:04 | XMS_ITS | Encounter Summary ---
[place] [address] Care Team Providers Care Furniture Shampooer Name Role Phone Jarad Keller DANIKA Primary Care Provider [phone] Encounter Details Date Type Department Care Team (Late st Contact Info) Description 08/16/2019 Orders [place] [address] Jacinta Pressley, [facility] [place] [address] Closed fracture of multiple ribs of right [...] encounter documented in this encounter Care Teams Furniture Shampooer Relationship Specialty Start Date End Date Jarad Keller DNP PCP - General Family Medicine 06/05/18 02/09/21 documented as of this encounter
--- OUTSIDE RECORDS SUMMARY | 2023-12-31 17:04 | XMS_ITS | Encounter Summary ---
Author Organization [facility] [place] [address] Care Team Providers Care Strategic Debriefing Specialist Name Role Phone Jarad Keller DANIKA Primary Care Provider [phone] Reason for Visit * Reason Comments Eye Problem Procedure * Consultation (Routine) - Closed Specialty Diagnoses / Procedures Referred By Puneet hallman Referred To Contact Ophthalmology Diagnoses dme os Rylan Carrero M, OD [address] [place] [address] Harmeet Arvizu MD [facility] [place] [address] Referral ID Status Reason Start Date Expiration Date V isits Requested Visits Authorized [id number] Closed Consult, Test & Treat 04/04/2019 04/03/2020 1 1 Encounter Details Date Type Department Care Team (Latest Contact Info) Description 10/12/2019 2:30 PM EDT Office [place] [address] Harmeet Arvizu MD [facility] [place] [address] Proliferative diabetic retinopathy of left eye with [...] about driving: We always recommend having a scoop driver on the day you get an [...] Normal and Not Expected side effects: Call [phone] (Eye Clinic) DAY or NIGHT, HOLIDAY or [...] visual impairment category Reestablishing care here at [facility]. Previous CBC patient last seen 2013. Since then has been in [place] with retina care on and off. OD: [...] loss due to brain/head injury. Hospitalization in [place]. Some note available in scan docs. Eylea [...] category documented in this encounter Care Teams Strategic Debriefing Specialist Relationship Specialty Start Date End Date Jarad Keller DNP PCP - General Family Medicine 06/05/18 02/09/21 documented as of this encounter
--- OUTSIDE RECORDS SUMMARY | 2023-12-31 17:04 | XMS_ITS | Encounter Summary ---
Author Organization [facility] [place] [address] Care Team Providers Care Ar Manager Name Role Phone Jarad Keller DNP Primary Care Provider [phone] Reason for Visit * Reason Comments Procedure Encounter Details Date Type Department Care Team (Latest Contact Info) Description 11/09/2019 2:15 PM EDT Procedure [place] [address] Harmeet Arvizu MD [facility] [place] [address] Proliferative diabetic retinopathy of left eye with [...] about driving: We always recommend having a concrete mixing truck driver on the day you get [...] Normal and Not Expected side effects: Call [phone] (Eye Clinic) DAY or NIGHT, HOLIDAY or [...] of Eylea 2.0 mg left eye Assist: Flexboard Operator Anesthesia: Topical Proparacaine and topical 4% Lidocaine Complications: None Procedure: The patient was taken to the minor treatment suite where the patient was reidentified using name and birthdate as critical identifiers. The correct eye as the operative site was reidentified by a preplaced site maria r, and the consent form was actively reviewed by the assistant offset press operator and the surgeon. The left eye was prepped including instillation of Betadine 5% into the left cul de sac for 5 minutes, facial prep with ophthalmic Betadine and placement of a lid speculum. The Surgeon performed hand washing preoperatively, used gloves, and wore a face mask or used no talking technique during the procedudre, as did the director medical surgical. After topical anesthesia of the injection site [...] call the Eye Clinic or Eye Doctor aviation neuropsychologist, should they develop pain the treated eye, [...] Eye documented in this encounter Care Teams Ar Manager Relationship Specialty Start Date End Date Jarad Keller DNP PCP - General Family Medicine 06/05/18 02/09/21 documented as of this encounter
--- OUTSIDE RECORDS SUMMARY | 2023-12-31 17:04 | XMS_ITS | Encounter Summary ---
[place] [address] Care Team Providers Care Dependency Program Director Name Role Phone Jarad Keller DNP Primary Care Provider [phone] Encounter Details Date Type Department Care Team (Late st Contact Info) Description 08/07/2019 12:10 AM EDT Ancillary Procedure [place] [address] Jarad Keller DNP [address] [place] [address] Social History Tobacco Use Types [...] FILM LIBRARY OR DERABLES Performing Organization Address City/State/[facility] Co de Phone Number [place], [place] documented in this encounter Visit Diagnoses Not on filedocumented in this encounter Care Teams Dependency Program Director Relationship Specialty Start Date End Date Jarad Keller DNP PCP - General Family Medicine 06/05/18 02/09/21 documented as of this encounter
--- OUTSIDE RECORDS SUMMARY | 2023-12-31 17:04 | XMS_ITS | Encounter Summary ---
[place] [address] Care Team Providers Care Wood Type Cutter Name Role Phone Jarad Keller DNP Primary Care Provider [phone] Encounter Details Date Type Department Care Team (Late st Contact Info) Description 08/16/2019 Telephone [place] [address] Perla Tovar Social History Tobacco Use Types [...] Per TACS SIMONE Pressley contacted Yohannes at [facility] in response to phone note by Rosa from Orthopedics dated 08/16/2019. It has been offered patient go to [facility] on Tuesday August 20, 2019 to complete a CXR and SIMONE Pressley would then call with results and plan advisement. Yohannes has agreed to this proposal and the appointments for tomorrow 08/17/2019 have been canceled. Yohannes @ [facility] TEL: [phone] FAX [phone] documented in this encounter Plan of Treatment Not on file documented as of this encounter Visit Diagnoses Not on filedocumented in this encounter Care Teams Wood Type Cutter Relationship Specialty Start Date End Date Jarad Keller DNP PCP - General Family Medicine 06/05/18 02/09/21 documented as of this encounter
--- OUTSIDE RECORDS SUMMARY | 2023-12-31 17:04 | XMS_ITS | Encounter Summary ---
Author Organization [facility] [place] [place] [address] Care Team Providers Care Adjunct Faculty Name Role Phone Jarad Keller DNP Primary Care Provider [phone] Reason for Visit * Reason Onset Date Comments Medication Refill 09/17/2019 Encounter Details Date Type Department Care Team (Late st Contact Info) Description 09/17/2019 Refill [place] [address] Ceasar Roy MD [facility] [place] [address] Social History Tobacco Use Types Packs/Day Years [...] on filedocumented in this encounter Care Teams Adjunct Faculty Relationship Specialty Start Date End Date Jarad Keller DNP PCP - General Family Medicine 06/05/18 02/09/21 documented as of this encounter
--- OUTSIDE RECORDS SUMMARY | 2023-12-31 17:04 | XMS_ITS | Encounter Summary ---
Author Organization [facility] Address [facility] [place] [address] Care Team Providers Care Back End Developer Name Role Phone Jarad Keller DANIKA Primary Care Provider [phone] Reason for Referral * Physical Therapy (Routine) - Closed Specialty Diagnoses / Procedures Referred By Contac t Referred To Contact Diagnoses Closed nondisplaced fracture of shaft of right clavicle, initial encounter Closed fracture of proximal end of right humerus, unspecified fracture morphology, initial encounter Louis Vergara MD [facility] [place] [address] Unknown None Referral ID Status Reason Start Date Expiration Date V isits Requested Visits Authorized [id number] Closed Evaluate and Treat 08/24/2019 02/20/2020 12 12 Reason for Visit * Consultation (Urgent) - Specialty Diagnoses / Procedures Referred By Contac t Referred To Contact Orthopaedics Diagnoses RIGHT 2 PART PROX HUM FX, NON SAIDPLACED MIDSHAFT CLAVICLE FX AND R SCAPULAR BODY FX DOI 07/29/2019 Toni Maya MD [facility] [place] [address] [facility] [address] [place] [address] Referral ID Status Reason Start Date Expiration Date V isits Requested Visits Authorized [id number] 07/30/2019 07/29/2020 1 1 Encounter Details Date Type Department Care Team (Latest Contact Info) Description 08/24/2019 8:00 AM EDT TH Visit (TeleHealth) Orthopaedics at [facility] [place] [address] Louis Vergara MD [facility] [place] [address] Closed fracture of proximal end of right [...] fracture, possible nondisplaced right scapula fracture At [facility] Had repeat xrays of the right shoulder on 08/15 Still feels like can't do much with the right shoulder. Not too much pain however. Can't lift the arm at all Has been doing PT Feels like it is just not moving. Index, thumb, middle feel slightly numb, just since the injury. Still in a sling. RHD Lives with and child normally in [place]. Imaging: Right shoulder xrays with minimally displaced [...] encounter documented in this encounter Care Teams Back End Developer Relationship Specialty Start Date End Date Jarad Keller DNP PCP - General Family Medicine 06/05/18 02/09/21 documented as of this encounter
--- OUTSIDE RECORDS SUMMARY | 2023-12-31 17:04 | XMS_ITS | Encounter Summary ---
[place] [address] Care Team Providers Care Railroad Firer Name Role Phone Jarad Keller DNP Primary Care Provider [phone] Encounter Details Date Type Department Care Team (Late st Contact Info) Description 08/16/2019 12:05 AM EDT Ancillary Procedure [place] [address] Jarad Keller DNP [address] [place] [address] Social History Tobacco Use Types [...] [facility] Co de Phone Number [place], [place] documented in this encounter Visit Diagnoses Not on filedocumented in this encounter Care Teams Railroad Firer Relationship Specialty Start Date End Date Jarad Keller DNP PCP - General Family Medicine 06/05/18 02/09/21 documented as of this encounter
--- OUTSIDE RECORDS SUMMARY | 2023-12-31 17:04 | XMS_ITS | Encounter Summary ---
[place] [address] Care Team Providers Care Manager Oracle Database Name Role Phone Jarad Keller DNP Primary Care Provider [phone] Reason for Visit * Reason Onset Date Comments Follow-up 10/15/2019 Encounter Details Date Type Department Care Team (Late st Contact Info) Description 10/15/2019 Telephone [place] [address] Harmeet Arvizu MD [facility] [place] [address] Follow-up Social History Tobacco Use Types Packs/Day [...] filedocumented in this encounter Care Teams Manager Oracle Database Relationship Specialty Start Date End Date Jarad Keller DNP PCP - General Family Medicine 06/05/18 02/09/21 documented as of this encounter
--- OUTSIDE RECORDS SUMMARY | 2023-12-31 17:04 | XMS_ITS | Encounter Summary ---
[place] [address] Care Team Providers Care Certified Master Safecracker Name Role Phone Jarad Keller DNP Primary Care Provider [phone] Reason for Visit * Reason Comments Procedure Encounter Details Date Type Department Care Team (Latest Contact Info) Description 10/12/2019 5:30 PM EDT Procedure [place] [address] [facility] [place] [address] Proliferative diabetic retinopathy of left eye with [...] driving: We always recommend having a industrial truck driver on the day you get [...] Normal and Not Expected side effects: Call [phone] (Eye Clinic) DAY or NIGHT, HOLIDAY or [...] of Eylea 2.0 mg left eye Assist: Timber Cruiser Anesthesia: Topical Proparacaine and topical 4% Lidocaine Complications: None Procedure: The patient was taken to the minor treatment suite where the patient was reidentified using name and birthdate as critical identifiers. The correct eye as the operative site was reidentified by a preplaced site maria r, and the consent form was actively reviewed by the laboratory chemical assistant and the surgeon. The left eye was prepped including instillation of Betadine 5% into the left cul de sac for 5 minutes, facial prep with ophthalmic Betadine and placement of a lid speculum. The Surgeon performed hand washing preoperatively, used gloves, and wore a face mask or used no talking technique during the procedudre, as did the surgical attendant. After topical anesthesia of the injection site [...] call the Eye Clinic or Eye Doctor nylon hot wire cutter, should they develop pain the treated eye, increasing redness or a discharge from the eye. 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
--- OUTSIDE RECORDS SUMMARY | 2023-12-31 17:04 | XMS_ITS | Encounter Summary ---
[place] [address] Care Team Providers Care Bridge Painter Name Role Phone Jarad Keller DNP Primary Care Provider [phone] Reason for Visit * Reason Onset Date Comments Prior Authorization 10/02/2019 Encounter Details Date Type Department Care Team (Late st Contact Info) Description 10/02/2019 Tele[place] [address] [place] Duque Prior Authorization Social History Tobacco [...] on filedocumented in this encounter Care Teams Bridge Painter Relationship Specialty Start Date End Date Jarad Keller DNP PCP - General Family Medicine 06/05/18 02/09/21 documented as of this encounter
--- OUTSIDE RECORDS SUMMARY | 2023-12-31 17:04 | XMS_ITS | Encounter Summary ---
[place] [address] Care Team Providers Care Audience Coordinator Name Role Phone Jarad Keller DNP Primary Care Provider [phone] Encounter Details Date Type Department Care Team (Late st Contact Info) Description 08/07/2019 12:05 AM EDT Ancillary Procedure [place] [address] Jarad Keller DNP [address] [place] [address] Social History Tobacco Use Types [...] FILM LIBRARY OR DERABLES Performing Organization Address City/State/[facility] Co de Phone Number [place], [place] documented in this encounter Visit Diagnoses Not on filedocumented in this encounter Care Teams Audience Coordinator Relationship Specialty Start Date End Date Jarad Keller DNP PCP - General Family Medicine 06/05/18 02/09/21 documented as of this encounter
--- OUTSIDE RECORDS SUMMARY | 2023-12-31 17:04 | XMS_ITS | Encounter Summary ---
[place] [address] Care Team Providers Care Resource Conservation Manager Name Role Phone Jarad Keller DNP Primary Care Provider [phone] Encounter Details Date Type Department Care Team (Late st Contact Info) Description 08/06/2019 Ancillary Procedure [place] [address] Jarad Keller DNP [address] [place] [address] Social History Tobacco Use Types [...] [facility] Co de Phone Number [place], [place] documented in this encounter Visit Diagnoses Not on filedocumented in this encounter Care Teams Resource Conservation Manager Relationship Specialty Start Date End Date Jarad Keller DNP PCP - General Family Medicine 06/05/18 02/09/21 documented as of this encounter
--- OUTSIDE RECORDS SUMMARY | 2023-12-31 17:04 | XMS_ITS | Encounter Summary ---
[place] [address] Care Team Providers Care Clerk Manager Name Role Phone Jarad Keller DNP Primary Care Provider [phone] Encounter Details Date Type Department Care Team (Late st Contact Info) Description 08/28/2019 Telephone [place] [id number] Kameron Frey Social History Tobacco Use Types [...] 08/28/2019 11:08 AM EDT Patient's physician from [facility], Dr. Stephens, called to inquire about the patient's weightbearing status. He already has the last note from the patient's visit on 24 August 2019. This message was forwarded to Dr. Vergara for guidance. documented in this encounter Plan of Treatment Not on file documented as of this encounter Visit Diagnoses Not on filedocumented in this encounter Care Teams Clerk Manager Relationship Specialty Start Date End Date Jarad Keller DNP PCP - General Family Medicine 06/05/18 02/09/21 documented as of this encounter
--- OUTSIDE RECORDS SUMMARY | 2023-12-31 17:04 | XMS_ITS | Encounter Summary ---
[place] [address] Care Team Providers Care [employer] Name Role Phone Jarad Keller DNP Primary Care Provider [phone] Reason for Visit * Reason Onset Date Comments Follow-up 08/07/2019 Encounter Details Date Type Department Care Team (Late st Contact Info) Description 08/07/2019 [place] [id number] Luois Vergara MD [facility] DR OR[place]OPAED[place] [address] Follow-up Social History Tobacco Use Types Packs/Day [...] 11:00 AM EDT Yohannes called back from [facility] regarding the appointments for tomorrow: He [...] Lavern Govea Yohannes can be reached at [facility] at [phone] * Telephone Encounter - Cheli Guzman - [...] on Maurice, left message for Yohannes at [facility]. She can be patchedover to [place] when she calls back. * Telephone Encounter - Cheli Guzman - 08/07/2019 3:[address] Vergara advised ok for telephone visit. I called back to arrange the appointment with Dr. Vergara this Tuesday for a telephone office visit. Yohannes at [facility] was going to give me the phone number in his room to call him when she noticed he was transported acutely this morning 08/07/19 to [place]. She said he may return to them if he improves and she will obtain a better number to call him at ifhis cell phone is not getting good spa receptionist in the building. She will return call to us on . Yohannes from [facility], // ?? * Telephone Encounter - [...] the XR orders to be obtained at [facility]. They will send us the images and reports. Yohannes from [facility], // In basket message sent to Dr. Vergara to advise documented in this encounter Plan of Treatment Not on file documented as of this encounter Visit Diagnoses Not on filedocumented in this encounter Care Teams [employer] Relationship Specialty Start Date End Date Jarad Keller DNP PCP - General Family Medicine 06/05/18 02/09/21 documented as of this encounter
--- OUTSIDE RECORDS SUMMARY | 2023-12-31 17:04 | XMS_ITS | Encounter Summary ---
Author Organization [facility] [place] [place] [address] Care Team Providers Care Acute Care Physician Name Role Phone Jarad Keller DNP Primary Care Provider [phone] Reason for Visit * Reason Onset Date Comments Medication Refill 10/01/2019 Encounter Details Date Type Department Care Team (Late st Contact Info) Description 10/01/2019 [place] [address] Ceasar Roy MD [facility] [place] [address] Social History Tobacco Use Types Packs/Day Years [...] on filedocumented in this encounter Care Teams Acute Care Physician Relationship Specialty Start Date End Date Jarad Keller DNP PCP - General Family Medicine 06/05/18 02/09/21 documented as of this encounter
--- OUTSIDE RECORDS SUMMARY | 2023-12-31 17:04 | XMS_ITS | Encounter Summary ---
[place] [address] Care Team Providers Care Inspector Poising Name Role Phone Jarad Keller DNP Primary Care Provider [phone] Encounter Details Date Type Department Care Team (Late st Contact Info) Description 08/07/2019 Ancillary Procedure [place] [address] Jarad Keller DNP [address] [place] [address] Social History Tobacco Use Types [...] FILM LIBRARY OR DERABLES Performing Organization Address City/State/[facility] Co de Phone Number [place], [place] documented in this encounter Visit Diagnoses Not on filedocumented in this encounter Care Teams Inspector Poising Relationship Specialty Start Date End Date Jarad Keller DNP PCP - General Family Medicine 06/05/18 02/09/21 documented as of this encounter
--- OUTSIDE RECORDS SUMMARY | 2023-12-31 17:05 | XMS_ITS | Encounter Summary ---
Author Organization [facility] [place] [address] Care Team Providers Care Software Verification Engineer Name Role Phone Jarad Keller DNP Primary Care Provider [phone] Reason for Visit * Reason Comments Trauma * Auth/Cert Specialty Diagnoses / Procedures Referred By Puneet t Referred To Contact Diagnoses Fall Fall, initial encounter Referral ID Status Reason Start Date Expiration Date Visits Re quested Visits Authorized [id number] 1 1 Encounter Details Date Type Department Care Team (Latest Contact Info) Description 07/29/2019 11:53 PM EDT - 08/04/2019 3:45 PM EDT Hospital Encounter [address] [place] [address] Kimani Kiser MD [facility] [place] [address] Aaron Dover MD [facility] [place] [address] Eliot Cohen MD [facility] [place] [address] Fall, initial encounter; Closed fracture of proximal [...] wound care ?? Trauma Clinic or Primary Tank Pumper Panelboard? Scheduled Appointments: The following appointments have been scheduled on your behalf: Future Appointments Date Time Provider Department Center 08/07/2019 8:45 AM [facility] DX ROOM 1 MH Xray [facility] Rad 08/07/2019 9:00 AM [facility] DX ROOM 1 MH Xray [facility] Rad 08/07/2019 10:00 AM Faye Valle PA [facility] ORTH 3C [facility] 08/17/2019 9:15 AM [facility] DB XRAY ROOM 2 MH Xray [facility] Rad 08/17/2019 10:30 AM Jacinta Pressley APRN [facility] SURG [facility] 08/17/2019 11:[address] [facility] [address] [facility] Rad 08/17/2019 1:00 PM Lavern Velez APRN [facility] [id number] [facility] 08/29/2019 2:30 PM Ceasar Roy MD [facility] ENDO [facility] 10/12/2019 2:30 PM Harmeet Arvizu MD [facility] OPHT 4B [facility] Other In-hospital Issues: - Acute pain - [...] Maurice A Rudolph??is a 59 y.o.??male??presents to [facility] s/p fall. ??Description of events leading upto injury includes patient was walking up his stairs at home, lost control, and fell down 12 stairs. He states that the last thing he remembers before losing consciousness is the realization that he is falling.??He was worked up with imaging at [facility] prior to transfer here. ?? Primary [...] rehab and he accepted a bed at [facility]. Hi transfer was postponed on 08/02 due [...] juice or regular (not diet) soda 6 Aprimoavers small box of raisins 4 glucose tablets [...] exclude potential malignancy. Alternatively, depending on the dpynz-gz-jxji, this can potentially be reevaluated on clinically-decided [...] humeral fracture is not included in the qkllm-vg-ucsy. Known right second rib fracture is not visible. There is curvilinear density along the right apical and lateral chest wall that is similar to prior,most likely extrapleural blood. No distended loops of bowel. EKG leads overlie the patient and obscure the wkfyh-uv-ffoz. ?? 1. Small left pleural fluid collection [...] exclude potential malignancy. Alternatively, depending on the wwnit-xe-qiso, thiscan potentially be reevaluated on clinically-decided follow-up [...] Time Provider Department Center 08/07/2019 8:45 AM [facility] DX ROOM 1 MH Xray [facility] Rad 08/07/2019 9:00 AM [facility] DX ROOM 1 MH Xray [facility] Rad 08/07/2019 10:00 AM Faye Valle PA [facility] ORTH 3C [facility] 08/17/2019 9:15 AM [facility] DB XRAY ROOM 2 MH Xray [facility] Rad 08/17/2019 10:30 AM Jacinta Pressley APRN [facility] SURG [facility] 08/17/2019 11:[address] [facility] [address] [facility] Rad 08/17/2019 1:00 PM Lavern Velez APRN [facility] [id number] [facility] 08/29/2019 2:30 PM Caesar Roy MD [facility] ENDO [facility] 10/12/2019 2:30 PM Harmeet Arvizu MD [facility] OPHT 4B [facility] Outpatient Services/Studies: CT Head wo Contrast (Generic) Standing Status: Future Standing Exp. Date: 02/27/20 Question Response Notes Where will study be performed? [facility] Radiology [120] Special Instructions Given to Patient [...] anticoagulant, and non-steroidal anti-inflammatory (NSAIDs) drugs. Common lbfd-bco-tmxsgns medications which should be avoided include Aspirin, [...] a head injury. - When your health day care center director says you are well enough, return to your normal activities gradually, not all at once. - Talk with your health day care center director about when you can return to work. [...] Provider. Please call the Neurosurgery Office at [phone] if you do not receive a scheduled [...] wound care ?? Trauma Clinic or Primary Tank Pumper Panelboard? As a result of your CT scans, you were found to have the following incidental findings, please discuss with your primary care provider at you next visit: -??Focal infrarenal abdominal aortic ectasia up to 2.4 cm.?? -Very mild nasopharyngeal asymmetry, may or may not be debris; consider direct visualization to exclude potential malignancy. Alternatively, depending on the ytxcy-tx-xamk, this can potentially be reevaluated on clinically-decided [...] Time Provider Department Center 08/07/2019 8:45 AM [facility] DX ROOM 1 MH Xray [facility] Rad 08/07/2019 9:00 AM [facility] DX ROOM 1 MH Xray [facility] Rad 08/07/2019 10:00 AM Faye Valle PA [facility] ORTH 3C [facility] 08/17/2019 9:15 AM [facility] DB XRAY ROOM 2 MH Xray [facility] Rad 08/17/2019 10:30 AM Jacinta Pressley APRN [facility] SURG [facility] 08/17/2019 11:[address] [facility] [address] [facility] Rad 08/17/2019 1:00 PM Lavern Velez APRN [facility] [id number] [facility] 08/29/2019 2:30 PM Ceasar Roy MD [facility] ENDO [facility] 10/12/2019 2:30 PM Harmeet Arvizu MD [facility] OPHT 4B [facility] Driving Restrictions: - No driving if you [...] 1. You will have follow-up appointments at [facility] as indicated in the ???Future Appointments and [...] on the next business . Please call [phone] if you do not hear from us by that time, as your timely follow-up is very important to us. Your care was managed by the Trauma and Acute Care Surgery Team at [facility]. If you have any questions or concerns, please feel free to contact us. Provider Contact Information: General Surgery: [facility] (after business hours): Primary Care Physician: Jarad [...] bowel movement. You can also take an dsts-zcm-juhyeee medication, Miralax if needed to combat constipation. [...] bath may be easier. Call your doctor ([phone]) if you develop: 1. Fever greater than [...] 1. You will have follow-up appointments at [facility] as indicated in Future Appointment and Orders. [...] Time Provider Department Center 08/07/2019 8:45 AM [facility] DX ROOM 1 Xray [facility] Rad 08/07/2019 9:00 AM [facility] DX ROOM 1 MH Xray [facility] Rad 08/07/2019 10:00 AM Faye Valle PA [facility] ORTH 3C [facility] 08/29/2019 2:30 PM Ceasar Roy MD [facility] ENDO [facility] 10/12/2019 2:30 PM Harmeet Arvizu MD [facility] OPHT 4B [facility] If you have questions or concerns: Tuesday [...] Trauma and Acute Care Surgery Team at [facility]. If you have any questions or concerns, please feel free to contact us. Provider Contact Information: General Surgery Clinic: Nurses line for questions: [facility] (after business hours): CC: CHINO Casanova APRN Signed: Kendra Goff APRN Department of Surgery 08/04/2019 Trauma pager [phone] documented in this encounter Discharge Instructions * [...] bowel movement. You can also take an okrh-zce-kvuoxax medication, Miralax if needed to combat constipation. [...] bath may be easier. Call your doctor ([phone]) if you develop: 1. Fever greater than [...] 1. You will have follow-up appointments at [facility] as indicated in Future Appointment and Orders. [...] Time Provider Department Center 08/07/2019 8:45 AM [facility] DX ROOM 1 Xray [facility] Rad 08/07/2019 9:00 AM [facility] DX ROOM 1 Xray [facility] Rad 08/07/2019 10:00 AM Faye aVlle PA [facility] ORTH 3C [facility] 08/29/2019 2:30 PM Ceasar Roy MD [facility] ENDO [facility] 10/12/2019 2:30 PM Harmeet Arvizu MD [facility] OPHT [address] [place] [address] If you have questions or concerns: Tuesday [...] anticoagulant, and non-steroidal anti-inflammatory (NSAIDs) drugs. Common obab-zcz-ggpwwqx medications which should be avoided include Aspirin, [...] a head injury. - When your health day care center director says you are well enough, return to your normal activities gradually, not all at once. - Talk with your health day care center director about when you can return to work. [...] Provider. Please call the Neurosurgery Office at [phone] if you do not receive a scheduled [...] wound care ?? Trauma Clinic or Primary Tank Pumper Panelboard? As a result of your CT scans, you were found to have the following incidental findings, please discuss with your primary care provider at you next visit: -??Focal infrarenal abdominal aortic ectasia up to 2.4 cm.?? -Very mild nasopharyngeal asymmetry, may or may not be debris; consider direct visualization to exclude potential malignancy. Alternatively, depending on the jmrpq-yj-wqgn, this can potentially be reevaluated on clinically-decided [...] Time Provider Department Center 08/07/2019 8:45 AM [facility] DX ROOM 1 MH Xray [facility] Rad 08/07/2019 9:00 AM [facility] DX ROOM 1 MH Xray [facility] Rad 08/07/2019 10:00 AM Faye Valle PA [facility] ORTH 3C [facility] 08/17/2019 9:15 AM [facility] DB XRAY ROOM 2 MH Xray [facility] Rad 08/17/2019 10:30 AM Jacinta Pressley APRN [facility] SURG [facility] 08/17/2019 11:[address] [facility] [address] [facility] Rad 08/17/2019 1:00 PM Lavern Velez APRN [facility] [id number] [facility] 08/29/2019 2:30 PM Ceasar Roy MD [facility] ENDO [facility] 10/12/2019 2:30 PM Harmeet Arvizu MD [facility] OPHT 4B [facility] Driving Restrictions: - No driving if you [...] 1. You will have follow-up appointments at [facility] as indicated in the ???Future Appointments and [...] on the next business day. Please call [phone] if you do not hear from us by that time, as your timely follow-up is very important to us. Your care was managed by the Trauma and Acute Care Surgery Team at [facility]. If you have any questions or concerns, please feel free to contact us. Provider Contact Information: General Surgery: [facility] (after business hours): Primary Care Physician: Jarad [...] 08/04/2019 3:45 PM EDT Office of Care Management/Pyrotechnic Mixer Name: Maurice Rudolph Presenting Issue: Outpatient Dialysis Update Notified [facility] HD unit that patient is scheduled for discharge soon. The dialysis unit is ready for the patient on 08/07/2019. The patient will have a schedule of /Tue at 0745hrs. Plan: Discharge Summary and last acute dialysis records will be faxed to the dedicated local truck driver upon discharge. This office will be available to the patient, Sewing Machine Adjuster-RN and Measurement Department Chief Clerk for further assistance. Dialysis Unit Address: [place] [address] P: [phone] F: [phone] Christiano Onofre Resource SpecialistOffice of Care Management/Pyrotechnic Mixer * Aicha Santa RN - 08/04/2019 3:28 PM EDT RN attempted to call report. Concrete Bucket Loader at [facility] answered but was unable to get a facility RN toanswer. Release Of Information Clerk stated she will have facility RN call. Aicha Santa RN * Chalino Ceballos MD - 08/04/2019 2:20 PM EDT HYPERTENSION/ NEPHROLOGY PROGRESS NOTE PATIENT: Maurice Rudolph : 1960 ID:- 59 year old man with ESRD on HD (/TUE) at [facility] admitted with Right humeral, scapular, rib [...] Fellow Nephrology Acute Care Team Pager Number #[phone] Associated attestation - Petros Zamarripa MD - [...] 08/04/2019 9:44 AM EDT Office of Care Management/Pyrotechnic Mixer Patient Name: Maurice Rudolph : 1960 Patient has been offered a IRF bed at [facility] arranged for a 1500hrs transport. Ambulance will need: Medicare ambulance form completed and signed (MD or Sewing Machine Adjuster RN/J2EE DEVELOPER) Copy of patient demographics [place] [facility] [place] [facility] DNR/DNI order, if active No MD to MD report necessary Please call Nursing Report to [phone], ask for dedicated local truck driver. Info to accompany patient: Narcotic Prescriptions Copies of Medication Administration Records and IV sheets for past 10 days. Plan: Pyrotechnic Mixer will be available to the patient and Sewing Machine Adjuster-RN and/or Social Workerfor further assistance. Patient will be discharged to: [facility] [address] Christiano Onofre Pyrotechnic Mixer * Opal Garcia, RN - 08/04/2019 8:52 AM EDT Office of Care Management private inquiry agent Opal Garcia (pager [phone]) Patient: Maurice Rudolph : 1960 (59 y.o.) Home: [facility] [address] LOS: 5 days Received confirmation from [facility] [phone] that they are prepared to receive patient today Thursday 08/03 and are in agreement with his being transferred at 3:00pm. Requesting Pyrotechnic Mixer to book S ambulance transport for pain with movement, unhealed fractures, and inability to maintain erect sitting position for duration of transport. Notified sister Adriana [phone] of today's discharge plans. Cofirmed with direct [...] 8:25 AM EDT Office of Care Management private inquiry agent Opal Garcia (pager [phone]) Patient: Maurice Rudolph : 1960 (59 y.o.) Home: [facility] [address] LOS: 5 days [place] from Trauma 5178 that patient will be medically ready for discharge to acute rehab today Thursday 08/03 after dialysis session. Confirmed with direct care RN that patient can be ready for transport at 3:00pm. Left message at [facility] [phone] requesting confirmation of bed availability. Requesting Pyrotechnic Mixer to contact [facility] via [employer] to confirm bed as well. Planning to request BLS ambulance transport for 3:00pm once [facility] bed is confirmed. Team is aware. Patient [...] Progress Note Patient Name: Maurice Rudolph : [id number] MR#: [id number] 07/29/2019 Hospital Day 5 days Problem List: [...] wound care ?? Trauma Clinic or Primary Tank Pumper Panelboard ?? Problem List: - Acute pain - [...] exclude potential malignancy. Alternatively, depending on the guloh-hz-zqcf, this can potentially be reevaluated on clinically-decided follow- up examination of the intracranial hyperdense foci. []? Incidental Findings Form Completed Sandhya August APRN 08/03/2019 Trauma pager [phone] * Anabela Palacios RN - 08/03/2019 4:04 PM EDT RN-DEAF/HARD OF HEARING SPECIALIST, Office of Care Management Anabela Palacios RN,BSN, ACM Pager # [phone] Patient offered bed at [facility] today- medically held due to altered mental status. [facility] can admit on the weekend if medically ready( after hemodialysis). Tamar will be in the admissions office tomorrow at [facility] and can be reached at [phone]. They are asking that insulin pump gets [...] your insulin doses adjusted. Narcisa Tovar APRN [facility] Endocrinology Diabetes Management Pager [phone] * Eldon Bermudez MBBS - 08/03/2019 12:49 PM EDT HYPERTENSION/ NEPHROLOGY PROGRESS NOTE PATIENT: Maurice Rudolph : 1960 ID:- 59 year old man with ESRD on HD (/TUE) at [facility] admitted with Right humeral, scapular, rib [...] Discussed w/ Dr. Dallin Bermudez Nephrology Fellow [phone] Associated attestation - Petros Zamarripa MD - [...] Progress Note Patient Name: Maurice Rudolph : [id number] MR#: [id number] 07/29/2019 Hospital Day 4 days Problem List: [...] lidocaine, naloxone, Glucose 40% oral gel OR ehbnfdaq40% OR glucagon (human recombinant) Events over the last 24 hrs: Confusion sems largely resolved Subjective: Awake, alert in no distress, knows he is at [facility] and knows it is 2020 Moderate abdominal [...] lidocaine, naloxone, Glucose 40% oral gel OR rjhknbla93% OR glucagon (human recombinant) No Known Allergies [...] Palacios RN - 08/03/2019 10:39 AM EDT RN-DEAF/HARD OF HEARING SPECIALIST, Office of Care Management Anabela Palacios RN,BSN, ACM Pager # [phone] e-DH reviewed. Patient discussed daily in interdisciplinary rounds. Patient has referral to [facility]. Spoke with improvement coordinator. OT asked for updated note. Teamfeels he is confused but redirectable and cooperative. Altered status may be from his pain management and HD. Endocrinology to review- if patient can manage his insulin pump independently than that would be acceptable. Spoke with Cari at [facility] - he has Medicaid spend down and [...] [facility] gives approval will need ambulance transport. J2EE DEVELOPER/Sewing Machine Adjuster remains available as needed for coordination of [...] PM EDT Fall Event Note Maurice Rudolph [id number] 08/02/2019 Time of Fall: 2324 Was the fall witnessed No/Unobserved fall Patient's description of fall: I don't know Nursing staff description of fall: Bed alarm was going off, PANTOGRAPH WATCHER walked in and found pt on his [...] wound care ?? Trauma Clinic or Primary Tank Pumper Panelboard ?? Problem List: - Acute pain - [...] Intake/Output Summary (Last 24 hours) at 08/02/2019 7047 Last data filed at 08/02/2019 1243 Gross [...] NBO: miralax, pericolace - Last BM: 07/29/19 ([facility]) ?? RENAL: ESRD Requiring Hemodialysis Nephrology involved [...] exclude potential malignancy. Alternatively, depending on the trtni-aa-jrvl, this can potentially be reevaluated on clinically-decided follow- up examination of the intracranial hyperdense foci. []? Incidental Findings Form Completed Sandhya August, SALT CUTTER 08/02/2019 Trauma pager [phone] * Lynda Harris RN - 08/02/2019 3:06 PM EDT Patient has bed offer for Acute rehab at [facility] when medically ready. Patient with intermittent confusion [...] secondary Medicaid. Lynda Harris RN CM Pager [phone] * Eliot Cohen MD - 08/02/2019 2:19 PM EDT Images from the original note were not included. Patient Name: Maurice Rudolph Patient Age: 59 y.o. Birthdate: 1960 Admit date: 07/29/2019 Attending Physician: Eliot Cohen MD Trauma Service - Progress Note Patient Name: Maurice Rudolph : [id number] MR#: [id number] 07/29/2019 Hospital Day 3 days Problem List: [...] - mildly confused, knows he is at [facility] but it is 2020 Moderate abdominal distension [...] man with ESRD on HD (T//TUE) at [facility] admitted with Right humeral, scapular, rib [...] Discussed w/ Dr. Angelica Bermudez Nephrology Fellow [phone] Associated attestation - Katelynn Dominguez MD - [...] 11:02 AM EDT OFFICE OF CARE MANAGEMENT Sewing Machine Adjuster Follow-up Note Patient plan of care discussed with J2EE DEVELOPER and assessment for continuing care and discharge needs. Trauma team paged and awaiting callback. [facility]: 3 INSURANCE: Payor: MEDICARE / Plan: MEDICARE PART A & B / Product Type: *No Product type* / SECONDARY INSURANCE: N/A DECISION MAKER: Full Code Received Patient not ready for DC today per (Provider report to J2EE DEVELOPER) due to some confusion. Patient will likely [...] sister, Adriana Lopez is the primary DPOA ([phone]). ALDO has updated the demographics with all the contacts in order. His sister Iva is the second DPOA ([phone]). His son, Ze ([phone]). Team advised to please call Adriana his [...] Adriana KRAFT has requested referrals to: 1. [facility] PHONE: [phone] FAX: [phone] Nurse to Nurse report: [phone] [address] [place] [address] ?? Expected date of discharge: 08/03/2019 Note routed to Pyrotechnic Mixer who will communicate referrals to facilities and provide any required information. Sewing Machine Adjuster to follow with team and family to assist with discharge needs when patient ready for discharge. Lynda Harris RN CM Pager [phone] * Giovana Ray RN - 08/02/2019 8:20 AM EDT Pt left floor for HD. * Eldon Bermudez MBBS - 08/01/2019 5:34 PM EDT HYPERTENSION/ NEPHROLOGY PROGRESS NOTE PATIENT: Maurice Rudolph : 1960 ID:- 59 year old man with ESRD on HD (T//TUE) at [facility] admitted with Right humeral, scapular, rib [...] wound care ?? Trauma Clinic or Primary Tank Pumper Panelboard ?? Problem List: - Acute pain - [...] NBO: miralax, pericolace - Last BM: 07/29/19 ([facility]) ?? RENAL: ESRD Requiring Hemodialysis Nephrology involved [...] exclude potential malignancy. Alternatively, depending on the bhtke-sh-jerl, this can potentially be reevaluated on clinically-decided follow- up examination of the intracranial hyperdense foci. []? Incidental Findings Form Completed Sandhya August APRN 08/01/2019 Trauma pager [phone] * Eliot Cohen MD - 08/01/2019 10:40 AM EDT Patient Name: Maurice Rudolph Patient Age: 59 y.o. Birthdate: 1960 Admit date: 07/29/2019 Attending Physician: Eliot Cohen MD Trauma Service - Progress Note Patient Name: Maurice Rudolph : [id number] MR#: [id number] 07/29/2019 Hospital Day 2 days Problem List: [...] us in thecare of this patient * Sandhya August APRN - 07/31/2019 2:13 PM EDT [...] wound care ?? Trauma Clinic or Primary Tank Pumper Panelboard ?? Problem List: - Acute pain - [...] NBO: miralax, pericolace - Last BM: 07/29/19 ([facility]) ?? RENAL: ESRD Requiring Hemodialysis Nephrology involved [...] exclude potential malignancy. Alternatively, depending on the kfawv-ix-vkit, this can potentially be reevaluated on clinically-decided follow- up examination of the intracranial hyperdense foci. []? Incidental Findings Form Completed Sandhya August, SALT CUTTER 07/31/2019 Trauma pager [phone] * Vesta Ordonez RN - 07/31/2019 1:21 PM EDT This is resumption of care referral. Patient goes to Hemodialysis to [facility] center in [place], [place] Address: [address] [place] [address], [place] [address] Current schedule: Tuesday,, Tuesday. RS please submit [...] of care per Trauma Service. PLEASE PAGE [phone] WITH QUESTIONS Active Hospital Problems Diagnosis ??? [...] insulin. Neuro check stable, A&Ox4.Received order from [facility] that pt can be off tele for dialysis, order updated. php engineer called and updated about transfer. * Bibiana Venegas RN - 07/30/2019 8:45 PM EDT [facility] Patient A&O x 4, denies chest pain [...] is a 59 y.o. male presents to [facility] s/p fall. Description of events leading up to injury includes patient was walking up his stairs at home, lost control, and fell down 12 stairs. He states that the last thing he remembers before losing consciousness is the realization that he is falling. He was worked up with imaging at [facility] prior to transfer here. ?? Primary [...] INSERTION performed by Erasmo Bajwa MD at [facility] ? ? PRO REPAIR COMPLEX RETINA DETACH VITRECTOMY & MEMB PEEL 04/03/2012, 04/03/12 REPAIR COMPLEX RETINAL DETACHMENT, W/ VITRECTOMY, MEMBRANE PEELING performed by Matteo Diane MD at [facility] MA[facility] OR ? ? PRO REPAIR COMPLEX RETINA DETACH VITRECTOMY & MEMB PEEL 07/31/2012 REPAIR COMPLEX RETINAL DETACHMENT, W/ VITRECTOMY, MEMBRANE PEELING performed by Matteo Diane MD at [facility] MA[facility] OR ? ? PRO REPAIR COMPLEX RETINA DETACH VITRECTOMY & MEMB PEEL 01/08/2013 REPAIR COMPLEX RETINAL DETACHMENT, W/ VITRECTOMY, MEMBRANE PEELING performed by Matteo Diane MD at [facility] MAIN OR ??? PRO TX EXTENSIVE [...] sensation intact on the right arm. 5/5 fitting room checker strength.2+ radial pulse. Left upper extremity ROM [...] humeral fracture is not included in the uttpw-ye-powj. Known right second rib fracture is not visible. There is curvilinear density along the right apical and lateral chest wall that is similar to prior,most likely extrapleural blood. No distended loops of bowel. EKG leads overlie the patient and obscure the hwbiw-cv-hyee. 1. Small left pleural fluid collection versus [...] exclude potential malignancy. Alternatively, depending on the juphk-jj-umdb, thiscan potentially be reevaluated on clinically-decided follow-up [...] vessel injury (CTA carotids was performed) Trauma Ochise91-65 days with repeat CXR EXTR: Right clavicle fx Right scapula fx Right comminuted humeral head fx Orthopedic Surgery Consulted Non-op intervention -NWB RUE, sling for comfort Right clavicle and elbow films completed Orthopedic Clinic TBD ABRASIONS: Multiple scattered abrasions Local wound care Trauma Clinic or Primary [facility] Injuries identified on Tertiary Survey: 1. No [...] - NBO: miralax, pericolace - Last BM: GUM COOK RENAL: ESRD Requiring Hemodialysis Nephrology involved Staying [...] exclude potential malignancy. Alternatively, depending on the xdzcm-av-fhpp, this can potentially be reevaluated on clinically-decided follow- up examination of the intracranial hyperdense foci. [] Incidental Findings Form Completed HERVE Oscar 07/30/2019 Trauma pager [phone] Attending Addendum This patient was seen in [...] man with ESRD on TIW HD at [facility] admitted with R humeral, scapular, rib [...] exclude potential malignancy. Alternatively, depending on the plmnk-db-sfmt, this can potentially be reevaluated on clinically-decided [...] Remainder of care per Trauma PLEASE PAGE [phone] WITH QUESTIONS Active Hospital Problems Diagnosis ??? [...] Maurice Rudolph Level of Activation: Alert MR#: [id number] [x ]Scene Call or [ ]Hospital Transfer : [id number] CC/MECHANISM OF INJURY: 59 y.o. Male s/p fall, on 07/30/2019 HISTORY OF PRESENT ILLNESS: Maurice Rudolph is a 59 y.o. male presents to [facility] s/p fall. Description of events leading up to injury includes patient was walking up his stairs at home, lost control, and fell down 12 stairs. He states that the last thing he remembers before losing consciousness is the realization that he is falling. He was worked up with imaging at [facility] prior to transfer here. Primary survey [...] INSERTION performed by Erasmo Bajwa MD at [facility] ? ? PRO REPAIR COMPLEX RETINA DETACH VITRECTOMY & MEMB PEEL 04/03/2012, 04/03/12 REPAIR COMPLEX RETINAL DETACHMENT, W/ VITRECTOMY, MEMBRANE PEELING performed by Matteo Diane MD at [facility] MA[facility] OR ? ? PRO REPAIR COMPLEX RETINA DETACH VITRECTOMY & MEMB PEEL 07/31/2012 REPAIR COMPLEX RETINAL DETACHMENT, W/ VITRECTOMY, MEMBRANE PEELING performed by Matteo Diane MD at [facility] MAIN OR ? ? PRO REPAIR COMPLEX RETINA DETACH VITRECTOMY & MEMB PEEL 01/08/2013 REPAIR COMPLEX RETINAL DETACHMENT, W/ VITRECTOMY, MEMBRANE PEELING performed by Matteo Diane MD at [facility] MA[facility] OR ??? PRO TX EXTENSIVE [...] and arm swelling and ecchymosis; 5/5 bilateral fitting room checker strength SPINE: no deformity, no stepoffs, no [...] Antibiotics: None - Diet -n.p.o. - Imaging zlrbym-q-yyc right clavicle, x-ray right elbow ?? Spine [...] at baseline and stable on transport to [facility]. Met by trauma team and ED staff [...] on phone: None Gets together: None Attends mormon service: None Active member of club or [...] the number below. Electronically signed by: Huang Hernandez, [facility] ([phone]), at 07/30/2019 1:42 AM Request For 2nd Read CT Head And [...] Therapy: 30(TE-Fx 2) Liliana Ortiz PTA Pager: [phone] Physical Therapy Inpatient Rehabilitation Department * Plan [...] fracture (nondisplaced) Social History: Patient lives in [place], [place] with his and son (30 years). Pt's is disabled (wheelchairbound, paralyzed on one side?). Pt is not comfortable with his son assisting with his personal halfway Setup: 2 level home w/ flight of [...] assist him) DME: shower seat, grab bar, ticket machine operator, sockaid, shoe horn Baseline ADL/Mobility: Pt was independent w/ ADL's and IADL's (except driving). He uses a ticket machine operator, sockaid and shoe horn. His son [...] Preformed sit>stand with mod Ax2, gait belt, REGISTERED NURSE AMBULATORY, pt unable to advance feet today, with [...] Minutes, Occupational Therapy: 30 2x schm Pager: [phone] JEOVANNY Peterson Occupational Therapy Rehabilitation Department * [...] deemed to be not neurologically related by [facility]. VSS. Anticipated d/c tomorrow, will continue to [...] reach;independence encouraged;safe use of adaptiveequipment encouraged -- Luna Fall Risk History of Falling 25 [...] as appropriate/able. Bahman Ham PT, DPT Pager [phone] Inpatient Rehabilitation * Plan of Care - Deandra Hermosillo OTA - 08/02/2019 12:46 PM EDT Pt was off the floor for HD. Will continue to follow. JEOVANNY Lopes Pager [phone] * Plan of Care - Kendra Beckett [...] where he was, thought he was in [place] ?? Unable to come up with town [...] plan as stated. Time IN / OUT: [id number] Total Evaluation Minutes, Physical Therapy: 28(TEF x2) Bahman Ham PT Pager: [phone] Physical Therapy Inpatient Rehabilitation Department * Plan [...] to follow up another time. Catrachita WRIGHT Pager:[phone] Occupational Therapy * Consult Note - Jonatan [...] of ESRD on HD, CAD s/p CABGx3 ([place] 2014), obesity, DM, HTN, CVA (R basal [...] referral as an outpatient Jonatan Elias MD Machinist [employer] B PGY-4 08/01/2019 Page [phone] Associated attestation - Matteo Vernon MD - [...] AM EDT Physical Therapy Contact Note 07/31/19 0969 Rehab Evaluation Document Type contact Total Evaluation Minutes, Physical Therapy 0 Evaluation Not Performed Comment Attempted to see pt for physical therapy this AM however pt was off floor at HD. Plan to follow up tomorrow. Maegan Pedroza, PT DPT Pager #[phone] 07/31/2019 Physical Therapy Rehabilitation Department * Plan of Care - Catrachita Castellon OTA - 07/31/2019 8:44 AM EDT Occupational Therapy Note: Attempted to see patient. Pt off of floor at HD. Will follow up another time. Catrachita WRIGHT Pager:[phone] Occupational Therapy * Plan of Care - [...] INSERTION performed by Erasmo Bajwa MD at [facility] ? ? PRO REPAIR COMPLEX RETINA DETACH VITRECTOMY & MEMB PEEL 04/03/2012, 04/03/12 REPAIR COMPLEX RETINAL DETACHMENT, W/ VITRECTOMY, MEMBRANE PEELING performed by Matteo Diane MD at [facility] OR ? ? PRO REPAIR COMPLEX RETINA DETACH VITRECTOMY & MEMB PEEL 07/31/2012 REPAIR COMPLEX RETINAL DETACHMENT, W/ VITRECTOMY, MEMBRANE PEELING performed by Matteo Diane MD at [facility] MA[facility] OR ? ? PRO REPAIR COMPLEX RETINA DETACH VITRECTOMY & MEMB PEEL 01/08/2013 REPAIR COMPLEX RETINAL DETACHMENT, W/ VITRECTOMY, MEMBRANE PEELING performed by Matteo Diane MD at [facility] MA[facility] OR ??? PRO TX EXTENSIVE [...] Physical Therapy: 55 LOLA KING, PT Pager: [phone] Physical Therapy Inpatient Rehabilitation Department * Plan [...] diabetes management and toprovide a review of fdc diabetes care. Injuries from H&P: - s/p [...] your patient Narcisa Guy MAGANA Endocrinology Pager [phone] 70 minutes of this 80 minute visit [...] INSERTION performed by Erasmo Bajwa MD at [facility] ? ? PRO REPAIR COMPLEX RETINA DETACH VITRECTOMY & MEMB PEEL 04/03/2012, 04/03/12 REPAIR COMPLEX RETINAL DETACHMENT, W/ VITRECTOMY, MEMBRANE PEELING performed by Matteo Diane MD at [facility] OR ? ? PRO REPAIR COMPLEX RETINA DETACH VITRECTOMY & MEMB PEEL 07/31/2012 REPAIR COMPLEX RETINAL DETACHMENT, W/ VITRECTOMY, MEMBRANE PEELING performed by Matteo Diane MD at [facility] OR ? ? PRO REPAIR COMPLEX RETINA DETACH VITRECTOMY & MEMB PEEL 01/08/2013 REPAIR COMPLEX RETINAL DETACHMENT, W/ VITRECTOMY, MEMBRANE PEELING performed by Matteo Diane MD at [facility] MA[facility] OR ??? PRO TX EXTENSIVE [...] Dr Bajwa Social History: Patient lives in [place], [place] with his and son (30 years). Pt's is disabled (wheelchairbound, paralyzed on one side?). Pt is not comfortable with his son assisting with his personal halfway Setup: 2 level home w/ flight of [...] assist him) DME: shower seat, grab bar, ticket machine operator, sockaid, shoe horn Baseline ADL/Mobility: Pt was independent w/ ADL's and IADL's (except driving). He uses a ticket machine operator, sockaid and shoe horn. His son [...] has been seen for occupational therapy evaluation. Maurice Gurrola Rudolph presents with the following performance [...] and measurable assessment of functional outcome. Pager: [phone] ARLEEN YOUNGER OT 07/30/2019 Occupational Therapy Rehabilitation [...] is a 59 y.o. male presents to [facility] s/p fall. Description of events leading up [...] Hospitalizations Within the Past 30 Days: no [facility] admits in last 30 days. Anticipated Length Of Stay (If known): TBD Current Decision-Making Capacity: Patient is A&Ox4 Advance Care Planning: Full Code in [employer]. Lists sister Adriana Lopez( ) as the [...] for spouse. Spouse is [place] bound. [address] [facility] [phone] Social & Family Supports/Community Resources: lives with son and spouse. Spouse is wc bound andneeds assistance with ADLs, has home health set up. Son helps as well. Extended Emergency Contact Information Primary Emergency Contact: Kaye Rudolph Relation: Spouse Behavioral Health History: denies Substance Use/Abuse:denies Health/Prescription Coverage: Primary Insurance: MEDICARE Secondary Insurance: N/A Prescription Coverage: Yes Preferred Pharmacy: [id number] [place], [place] - [address] [place] [address] AT [address] OF [address] [address] Other: none Primary Care Provider: Jarad Keller APRN [phone] Patient/Caregiver Goals of Treatment: return to previous level of function Potential Needs for Transition of Care: Discussed with patient and family levels of rehab includingSNF, swing, acute and VNA home health care also discussed. Discussed need to accept first bed available when patient is medically ready. Rehab/SNF: TBD Home Health: would like VNA, ok with [facility] if indicated DME: has a cane [...] of care planning. Vesta Ordonez, PERNELL Nurse Sewing Machine Adjuster Pager [phone] * Plan of Care - Cynthia Pedroza [...] and right humerus. He was transported to [facility] for further work-up and management. Upon initial [...] INSERTION performed by Erasmo Bajwa MD at [facility] ? ? PRO REPAIR COMPLEX RETINA DETACH VITRECTOMY & MEMB PEEL 04/03/2012, 04/03/12 REPAIR COMPLEX RETINAL DETACHMENT, W/ VITRECTOMY, MEMBRANE PEELING performed by Matteo Diane MD at [facility] MA[facility] OR ? ? PRO REPAIR COMPLEX RETINA DETACH VITRECTOMY & MEMB PEEL 07/31/2012 REPAIR COMPLEX RETINAL DETACHMENT, W/ VITRECTOMY, MEMBRANE PEELING performed by Matteo Diane MD at [facility] MA[facility] OR ? ? PRO REPAIR COMPLEX RETINA DETACH VITRECTOMY & MEMB PEEL 01/08/2013 REPAIR COMPLEX RETINAL DETACHMENT, W/ VITRECTOMY, MEMBRANE PEELING performed by Matteo Diane MD at [facility] MAIN OR ??? PRO TX EXTENSIVE [...] on phone: None Gets together: None Attends mormon service: None Active member of club or [...] -Close neurological observation, Q2H Neuro Checks -Imaging: [facility] at 0400 -BP control, keep SBP<160 [...] stairs at his home earlier today in [place] when he had a mechanical fall and went down roughly 14 stairs. He did have loss of consciousness, he did not ambulate after the injury. He was taken to [facility] where he was evaluated and found to have a right minimally displaced greater tuberosity fracture, a right nondisplaced clavicle fracture, and a right nondisplaced scapular fracture along with an intraparenchymal hemorrhage, multiple rib fractures on the right. He was subsequently transferred to [facility] for further evaluation and management. Orthopedics was [...] Employment: On disability since 2011 [facility] MEDICATIONS: ??? levETIRAcetam (Keppra) tablet [...] (5/5) shoulder abduction, elbow flexion/extension, wrist flexion/extension, fitting room checker, EPL,AIN, IO Brisk capillary refill distally 2+ [...] Motor intact (5/5) elbow flexion/extension, wrist flexion/extension, fitting room checker, EPL, AIN, IO Brisk capillary refill distally [...] Antibiotics: None - Diet -n.p.o. - Imaging ioqnzg-[id number] right clavicle, x-ray right elbow - Discuss [...] Center 08/29/2019 2:30 PM Ceasar Roy MD [facility] ENDO [facility] 10/12/2019 2:30 PM Harmeet Arvizu MD [facility] OPHT 4B [facility] documented in this encounter Plan of Treatment [...] Glucose, POC 97 65 - 199 mg/dL [facility] Comment: Supplemental ranges: <140 mg/dL before meals <180 mg/dL all other times of the day Blood specimen (specimen) 08/04/2019 12:59 PM EDT 08/04/2019 12:59 PM EDT Eliot Cohen MD POINT OF CARE TEST O RDERABLES [facility] [place] [address] * POCT Glucose (08/04/2019 11:34 AM EDT) Glucose, POC 105 65 - 199 mg/dL [facility] Comment: Supplemental ranges: <140 mg/dL before meals <180 mg/dL all other times of the day Blood specimen (specimen) 08/04/2019 11:34 AM EDT 08/04/2019 11:34 AM EDT Eliot Cohen MD POINT OF CARE TEST O RDERAROSIE [facility] [place] [address] * POCT Glucose (08/04/2019 7:35 AM EDT) Glucose, POC 140 65 - 199 mg/dL [facility] Comment: Supplemental ranges: <140 mg/dL before meals <180 mg/dL all other times of the day Blood specimen (specimen) 08/04/2019 7:35 AM EDT 08/04/2019 7:35 AM EDT Eliot Cohen MD POINT OF CARE TEST O FREDERICKERAROSIE Performing Organization Address City/[facility]/ZIP Co de Phone Number [facility] [place] [address] * POCT Glucose (08/04/2019 3:54 AM EDT) Glucose, POC 125 65 - 199 mg/dL [facility] Comment: Supplemental ranges: <140 mg/dL before meals <180 mg/dL all other times of the day Blood specimen (specimen) 08/04/2019 3:54 AM EDT 08/04/2019 3:54 AM EDT Eliot Cohen MD POINT OF CARE TEST O RDERAROSIE [facility] [place] [address] * POCT Glucose (08/03/2019 11:47 PM EDT) Glucose, POC 135 65 - 199 mg/dL [facility] Comment: Supplemental ranges: <140 mg/dL before meals <180 mg/dL all other times of the day Blood specimen (specimen) 08/03/2019 11:47 PM EDT 08/03/2019 11:47 PM EDT Eliot Cohen MD POINT OF CARE TEST O ANTONETTE [facility] [place] [address] * POCT Glucose (08/03/2019 7:50 PM EDT) Glucose, POC 184 65 - 199 mg/dL [facility] Comment: Supplemental ranges: <140 mg/dL before meals <180 mg/dL all other times of the day Blood specimen (specimen) 08/03/2019 7:50 PM EDT 08/03/2019 7:50 PM EDT Eliot Cohen MD POINT OF CARE TEST O ANTONETTE Performing Organization Address [facility]/ZIP Co de Phone Number [facility] [place] [address] * POCT Glucose (08/03/2019 3:37 PM EDT) Glucose, POC 175 65 - 199 mg/dL [facility] Comment: Supplemental ranges: <140 mg/dL before meals <180 mg/dL all other times of the day Blood specimen (specimen) 08/03/2019 3:37 PM EDT 08/03/2019 3:37 PM EDT Eliot Cohen MD POINT OF CARE TEST O ANTONETTE [facility] [place] [address] * POCT Glucose (08/03/2019 11:46 AM EDT) Glucose, POC 155 65 - 199 mg/dL [facility] Comment: Supplemental ranges: <140 mg/dL before meals <180 mg/dL all other times of the day Blood specimen (specimen) 08/03/2019 11:46 AM EDT 08/03/2019 11:46 AM EDT Eliot Cohen MD POINT OF CARE TEST O RDERAROSIE Performing Organization Address City/[facility] Co de Phone Number [facility] [place] [address] * POCT Glucose (08/03/2019 8:50 AM EDT) [facility] Glucose, POC 156 65 - 199 mg/dL [facility] Comment: Supplemental ranges: <140 mg/dL before meals <180 mg/dL all other times of the day Blood specimen (specimen) 08/03/2019 8:50 AM EDT 08/03/2019 8:50 AM EDT Eliot Cohen MD POINT OF CARE TEST O RDERAROSIE Performing Organization Address [facility] de Phone Number [facility] [place] [address] * (ABNORMAL) Differential, Automated (08/03/2019 7:15 AM EDT) [facility] Neutrophil % 76.7 % [facility] Neutrophil Absolute 4.50 1.70 - 6.10 x10(3)/mc L [facility] Lymph % 8.9 % [facility] Lymphocytes Abs 0.5(L) 0.9 - 3.2 x10(3)/mc L [facility] Monocyte % 10.7 % [facility] Monocyte Abs 0.6 0.3 - 0.9 x10(3)/mc L [facility] Eos % 2.0 % [facility] Eosinophils Abs 0.1 0.0 - 0.4 x10(3)/mc L [facility] Basophil % 0.7 % [facility] Baso Absolute 0.0 0.0 - 0.1 x10(3)/[facility] Immature Gran % 1.00 % [facility] Comment: Immature granulocytes(IG's)percentage and absolute count will include metamyelocytes, myelocytes, and promyelocytes. Blood smears from CBCs yielding IG's will be scanned manually for concordance. If this scan disagrees with the automated IG or if promyelocytes are noted, a manual differential will be performed. Immature Gran Absolute 0.06(H) 0.00 - 0.04 x10(3)/[facility] Blood specimen (specimen) 08/03/2019 7:15 AM EDT 08/03/2019 7:24 AM EDT Narrative Resulting Agency Comment Spec In Lab Sandhya August APRN HEMATOLOGY JAY BEVERLY Performing Organization Address City/State/[facility] Co de Phone Number [facility] [place] [address] * (ABNORMAL) Hemogram (08/03/2019 7:15 AM EDT) White Blood Cell 5.9 4.0 - 9.5 x10(3)/[facility] Red Blood Cell 3.01(L) 4.58 - 5.54 x10(6)/[facility] Hemoglobin 9.6(L) 13.7 - 16.5 gm/dL [facility] Hematocrit 29.8(L) 40.5 - 48.5 % [facility] Mean Cell Volume 99.0(H) 82.9 - 93.1 fL [facility] Mean Cell Hemoglobin 31.9 27.5 - 32.1 pg [facility] Mean Cell Hemoglobin Concentration 32.2 32.0 - 35.7 gm/dL [facility] Platelet 153 145 - 357 x10(3)/[facility] RDW Standard Deviation 53.1(H) 36.0 - 45.0 fL [facility] RDW coefficient of variation 14.9(H) 11.4 - 13.8 % [facility] Mean Platelet Volume 9.8 7.6 - 12.9 fL [facility] NRBC% auto 0.0 % [facility] NRBC Absolute 0.000 0.000 - 0.000 x10(3)/mc L [facility] Blood specimen (specimen) 08/03/2019 7:15 AM EDT 08/03/2019 7:24 AM EDT Narrative Resulting Agency Comment Spec In Lab Sandhya August APRN HEMATOLOGY JAY BEVERLY [facility] [place] [address] * (ABNORMAL) Comprehensive metabolic panel (non-fasting) (08/03/2019 7:15 AM EDT) Glucose 140 65 - 199 mg/dL [facility] Comment:Diabetes: >=200 mg/d L plus symptoms Blood Urea Nitrogen 43(H) 10 - 20 mg/dL [facility] Creatinine 5.44(H) 0.80 - 1.50 mg/dL [facility] Sodium 132(L) 135 - 145 mmol/L [facility] Potassium 4.3 3.5 - 5.0 mmol/L [facility] Comment: Please note: ??Patients with WBC >100,000 may have falsely elevated Potassium levels. ??For accurate Potassium quantification in these patients send serum separator tube (gold top) for subsequent determinations. ??Contact the Clinical Chemistry Laboratory if there are any questions. Chloride 89(L) 98 - 107 mmol/L [facility] Carbon Dioxide 27 22 - 31 mmol/L [facility] Anion Gap 16(H) 5 - 15 mmol/L [facility] Calcium 8.9 8.5 - 10.5 mg/dL [facility] Protein, Total 8.3(H) 6.1 - 8.0 gm/dL [facility] Albumin 3.7 3.2 - 5.2 gm/dL [facility] Aspartate Aminotransferase 21 0 - 39 unit/L [facility] Alanine Aminotransferase 20 0 - 55 unit/L [facility] Alkaline Phosphatase 96 40 - 130 unit/L [facility] Bilirubin, Total 0.5 0.2 - 1.3 mg/dL [facility] Est Glomerular Filtration Rate 11(L) >=60 mL/min/1. 73 m?? [facility] Comment: The eGFR was calculated using the CKD-EPI equation. As with all creatinine based estimates of kidney function, eGFR values calculated with the CKD-EPI equation are not accurate in patients with acute kidney failure, extremes of body mass or the acutely ill. http://[employer]/[facility]Unk[facility] eGFR 12(L) >=60 mL/min/1. 73 m?? [facility] Comment: The eGFR was calculated using the CKD-EPI equation. As with all creatinine based estimates of kidney function, eGFR values calculated with the CKD-EPI equation are not accurate in patients with acute kidney failure, extremes of body mass or the acutely ill. http://[employer]/[facility]EAUnkf Blood specimen (specimen) 08/03/2019 7:15 AM EDT 08/03/2019 7:24 AM EDT Narrative Resulting Agency Comment Spec In Lab Sandhya August S[employer] CUTTER CHEMISTRY ORDER ROBBIE [facility] [place] [address] * Ammonia (08/03/2019 7:14 AM EDT) Ammonia 16 16 - 60 mcmol/L [facility] Blood specimen (specimen) 08/03/2019 7:14 AM EDT 08/03/2019 7:21 AM EDT Narrative Resulting Agency Comment Spec In Lab Sandhya August S[employer] CUTTER CHEMISTRY ORDER ROBBIE Performing Organization Address City/[facility] [facility]/ZIP Co de Phone Number [facility] [place] [address] * POCT Glucose (08/03/2019 4:58 AM EDT) Glucose, POC 156 65 - 199 mg/dL [facility] Comment: Supplemental ranges: <140 mg/dL before meals <180 mg/dL all other times of the day Blood specimen (specimen) 08/03/2019 4:58 AM EDT 08/03/2019 4:58 AM EDT Eliot Cohen MD POINT OF CARE TEST O ANTONETTE Performing Organization Address City/[facility]/ZIP Co de Phone Number [facility] [place] [address] * POCT Glucose (08/02/2019 11:32 PM EDT) Glucose, POC 139 65 - 199 mg/dL [facility] Comment: Supplemental ranges: <140 mg/dL before meals <180 mg/dL all other times of the day Blood specimen (specimen) 08/02/2019 11:32 PM EDT 08/02/2019 11:32 PM EDT Eliot Cohen MD POINT OF CARE TEST O ANTONETTE Performing Organization Address City/[facility]/ZIP Co de Phone Number [facility] [place] [address] * POCT Glucose (08/02/2019 7:36 PM EDT) Glucose, POC 150 65 - 199 mg/dL [facility] Comment: Supplemental ranges: <140 mg/dL before meals <180 mg/dL all other times of the day Blood specimen (specimen) 08/02/2019 7:36 PM EDT 08/02/2019 7:36 PM EDT Eliot Cohen MD POINT OF CARE TEST O RDERABLES Performing Organization Address [facility] de Phone Number [facility] [place] [address] * POCT Glucose (08/02/2019 4:02 PM EDT) Glucose, POC 183 65 - 199 mg/dL [facility] Comment: Supplemental ranges: <140 mg/dL before meals <180 mg/dL all other times of the day Blood specimen (specimen) 08/02/2019 4:02 PM EDT 08/02/2019 4:02 PM EDT Eliot Cohen MD POINT OF CARE TEST O RDERAROSIE Performing Organization Address [facility] de Phone Number [facility] [place] [address] * POCT Glucose (08/02/2019 1:22 PM EDT) Glucose, POC 161 65 - 199 mg/dL [facility] Comment: Supplemental ranges: <140 mg/dL before meals <180 mg/dL all other times of the day Blood specimen (specimen) 08/02/2019 1:22 PM EDT 08/02/2019 1:22 PM EDT Eliot Cohen MD POINT OF CARE TEST O RDERABLES Performing Organization Address [facility] de Phone Number [facility] [place] [address] * (ABNORMAL) CMP w/fasting Glucose (08/02/2019 6:42 AM EDT) Glucose Fasting 156(H) 65 - 99 mg/dL [facility] Comment: ?Fasting* Glucose Interpretive Criteria [...] of Diabetes Mellitus, Position Statement from the [place] [employer] Association. ??Diabetes Care, Volume 33, Supplement 1, May 2009 Blood Urea Nitrogen 50(H) 10 - 20 mg/dL [facility] Creatinine 7.35(H) 0.80 - 1.50 mg/dL [facility] Comment:result rechecked-ms Sodium 130(L) 135 - 145 mmol/L [facility] Potassium 4.7 3.5 - 5.0 mmol/L [facility] Comment: Please note: ??Patients with WBC >100,000 may have falsely elevated Potassium levels. ??For accurate Potassium quantification in these patients send serum separator tube (gold top) for subsequent determinations. ??Contact the Clinical Chemistry Laboratory if there are any questions. Chloride 88(L) 98 - 107 mmol/L [facility] Carbon Dioxide 26 22 - 31 mmol/L [facility] Anion Gap 16(H) 5 - 15 mmol/L [facility] Calcium 8.6 8.5 - 10.5 mg/dL [facility] Protein, Total 7.6 6.1 - 8.0 gm/dL [facility] Albumin 3.6 3.2 - 5.2 gm/dL [facility] Aspartate Aminotransferase 22 0 - 39 unit/L [facility] Alanine Aminotransferase 22 0 - 55 unit/L [facility] Alkaline Phosphatase 86 40 - 130 unit/L [facility] Bilirubin, Total 0.6 0.2 - 1.3 mg/dL [facility] Est Glomerular Filtration Rate 7(L) >=60 mL/min/1. 73 m?? [facility] Comment: The eGFR was calculated using the CKD-EPI equation. As with all creatinine based estimates of kidney function, eGFR values calculated with the CKD-EPI equation are not accurate in patients with acute kidney failure, extremes of body mass or the acutely ill. http://[employer]/DHnkf eGFR 8(L) >=60 mL/min/1. 73 m?? [facility] Comment: The eGFR was calculated using the CKD-EPI equation. As with all creatinine based estimates of kidney function, eGFR values calculated with the CKD-EPI equation are not accurate in patients with acute kidney failure, extremes of body mass or the acutely ill. http://[employer]/DHnkf Blood specimen (specimen) 08/02/2019 6:42 AM EDT 08/02/2019 6:48 AM EDT Narrative Resulting Agency Comment Spec In Lab Sandhya August APRN CHEMISTRY ORDER ROBBIE Performing Organization Address [facility] Co de Phone Number [facility] [place] [address] * POCT Glucose (08/02/2019 6:33 AM EDT) Glucose, POC 155 65 - 199 mg/dL [facility] Comment: Supplemental ranges: <140 mg/dL before meals <180 mg/dL all other times of the day Blood specimen (specimen) 08/02/2019 6:33 AM EDT 08/02/2019 6:33 AM EDT Eliot Cohen MD POINT OF CARE TEST O RDERABLES Performing Organization Address City/[facility]/ZIP Co de Phone Number [facility] [place] [address] * POCT Glucose (08/02/2019 4:16 AM EDT) Glucose, POC 132 65 - 199 mg/dL [facility] Comment: Supplemental ranges: <140 mg/dL before meals <180 mg/dL all other times of the day Blood specimen (specimen) 08/02/2019 4:16 AM EDT 08/02/2019 4:16 AM EDT Eliot Cohen MD POINT OF CARE TEST O RDERABLES [facility] [place] [address] * POCT Glucose (08/01/2019 11:57 PM EDT) Glucose, POC 181 65 - 199 mg/dL [facility] Comment: Supplemental ranges: <140 mg/dL before meals <180 mg/dL all other times of the day Blood specimen (specimen) 08/01/2019 11:57 PM EDT 08/01/2019 11:57 PM EDT Eliot Cohen MD POINT OF CARE TEST O RDERABLES Performing Organization Address City/[facility]/ZIP Co de Phone Number [facility] [place] [address] * POCT Glucose (08/01/2019 7:18 PM EDT) Glucose, POC 183 65 - 199 mg/dL [facility] Comment: Supplemental ranges: <140 mg/dL before meals <180 mg/dL all other times of the day Blood specimen (specimen) 08/01/2019 7:18 PM EDT 08/01/2019 7:18 PM EDT Eliot Cohen MD POINT OF CARE TEST O RDERABLES [facility] [place] [address] * (ABNORMAL) POCT Glucose (08/01/2019 4:21 PM EDT) Glucose, POC 224(H) 65 - 199 mg/dL [facility] Comment: Supplemental ranges: <140 mg/dL before meals <180 mg/dL all other times of the day Blood specimen (specimen) 08/01/2019 4:21 PM EDT 08/01/2019 4:21 PM EDT Eliot Cohen MD POINT OF CARE TEST O RDERABLES Performing Organization Address City/[facility]/ZIP Co de Phone Number [facility] [place] [address] * (ABNORMAL) POCT Glucose (08/01/2019 12:32 PM EDT) Glucose, POC 204(H) 65 - 199 mg/dL [facility] Comment: Supplemental ranges: <140 mg/dL before meals <180 mg/dL all other times of the day Blood specimen (specimen) 08/01/2019 12:32 PM EDT 08/01/2019 12:32 PM EDT Eliot Cohen MD POINT OF CARE TEST O RDERABLES Performing Organization Address [facility] Co de Phone Number [facility] [place] [address] * POCT Glucose (08/01/2019 8:22 AM EDT) Glucose, POC 188 65 - 199 mg/dL [facility] Comment: Supplemental ranges: <140 mg/dL before meals <180 mg/dL all other times of the day Blood specimen (specimen) 08/01/2019 8:22 AM EDT 08/01/2019 8:22 AM EDT Eliot Cohen MD POINT OF CARE TEST O RDERABLES Performing Organization Address City/[facility]/ZIP Co de Phone Number [facility] [place] [address] * (ABNORMAL) Differential, Automated (08/01/2019 6:25 AM EDT) Neutrophil % 79.8 % [facility] Neutrophil Absolute 6.35(H) 1.70 - 6.10 x10(3)/mc L [facility] Lymph % 7.2 % [facility] Lymphocytes Abs 0.6(L) 0.9 - 3.2 x10(3)/mc L [facility] Monocyte % 9.8 % [facility] Monocyte Abs 0.8 0.3 - 0.9 x10(3)/[facility] Eos % 2.0 % [facility] Eosinophils Abs 0.2 0.0 - 0.4 x10(3)/[facility] Basophil % 0.6 % [facility] Baso Absolute 0.0 0.0 - 0.1 x10(3)/[facility] Immature Gran % 0.60 % [facility] Comment: Immature granulocytes(IG's)percentage and absolute count will include metamyelocytes, myelocytes, and promyelocytes. Blood smears from CBCs yielding IG's will be scanned manually for concordance. If this scan disagrees with the automated IG or if promyelocytes are noted, a manual differential will be performed. Immature Gran Absolute 0.05(H) 0.00 - 0.04 x10(3)/[facility] Blood specimen (specimen) 08/01/2019 6:25 AM EDT 08/01/2019 6:32 AM EDT Narrative Resulting Agency Comment Spec In Lab Sandhya August APRN HEMATOLOGY ORDE RUSH [facility] [place] [address] * (ABNORMAL) Hemogram (08/01/2019 6:25 AM EDT) White Blood Cell 8.0 4.0 - 9.5 x10(3)/[facility] Red Blood Cell 2.85(L) 4.58 - 5.54 x10(6)/[facility] Hemoglobin 9.1(L) 13.7 - 16.5 gm/dL [facility] Hematocrit 28.2(L) 40.5 - 48.5 % [facility] Mean Cell Volume 98.9(H) 82.9 - 93.1 fL [facility] Mean Cell Hemoglobin 31.9 27.5 - 32.1 pg [facility] Mean Cell Hemoglobin Concentration 32.3 32.0 - 35.7 gm/dL [facility] Platelet 128(L) 145 - 357 x10(3)/mc L [facility] RDW Standard Deviation 52.0(H) 36.0 - 45.0 fL [facility] RDW coefficient of variation 14.5(H) 11.4 - 13.8 % [facility] Mean Platelet Volume 10.1 7.6 - 12.9 fL [facility] NRBC% auto 0.0 % [facility] NRBC Absolute 0.000 0.000 - 0.000 x10(3)/mc L [facility] Blood specimen (specimen) 08/01/2019 6:25 AM EDT 08/01/2019 6:32 AM EDT Narrative Resulting Agency Comment Spec In Lab Sandhya August APRN HEMATOLOGY JAY BEVERLY [facility] [place] [address] * (ABNORMAL) Troponin (08/01/2019 6:25 AM EDT) Troponin-T 0.12(H) 0.00 - 0.00 ng/mL [facility] Comment: The 99th percentile for Troponin T is less than 0.01 ng/mL, any detectable cTnT concentration using this assay should be considered elevated. According to the third universal definition of myocardial infarction the following criteria with a clinical presentation consistent with acute myocardial ischemia meets the diagnosis for a myocardial infarction (SD). Detection of a rise and/or fall of cTnT, with at least one value greater than the 99th percentile (> or = 0.01) and with at least one of the following ?? Symptoms of ischemia ?? New or presumed new significant XB-[id number]-K wave (ST-T) changes or new left bundle [...] additional sample may be indicated. Reference: Third Delong Definition of Myocardial Infarction. Journal of the [place] College of Cardiology 2012;60:1581-98 Blood specimen (specimen) 08/01/2019 6:25 AM EDT 08/01/2019 6:32 AM EDT Narrative Resulting Agency Comment Spec In Lab Sandhya August SALT CUTTER CHEMISTRY ORDER ROBBIE [facility] [place] [address] * (ABNORMAL) Comprehensive metabolic panel (non-fasting) (08/01/2019 6:25 AM EDT) Glucose 180 65 - 199 mg/dL [facility] Comment:Diabetes: >=200 mg/d L plus symptoms Blood Urea Nitrogen 33(H) 10 - 20 mg/dL [facility] Creatinine 5.44(H) 0.80 - 1.50 mg/dL [facility] Sodium 130(L) 135 - 145 mmol/L [facility] Potassium 5.0 3.5 - 5.0 mmol/L [facility] Comment: Please note: ??Patients with WBC >100,000 may have falsely elevated Potassium levels. ??For accurate Potassium quantification in these patients send serum separator tube (gold top) for subsequent determinations. ??Contact the Clinical Chemistry Laboratory if there are any questions. Chloride 91(L) 98 - 107 mmol/L [facility] Carbon Dioxide 25 22 - 31 mmol/L [facility] Anion Gap 14 5 - 15 mmol/L [facility] Calcium 8.5 8.5 - 10.5 mg/dL [facility] Protein, Total 7.4 6.1 - 8.0 gm/dL [facility] Albumin 3.4 3.2 - 5.2 gm/dL [facility] Aspartate Aminotransferase 29 0 - 39 unit/L [facility] Alanine Aminotransferase 23 0 - 55 unit/L [facility] Alkaline Phosphatase 87 40 - 130 unit/L [facility] Bilirubin, Total 0.5 0.2 - 1.3 mg/dL [facility] Est Glomerular Filtration Rate 11(L) >=60 mL/min/1. 73 m?? [facility] Comment: The eGFR was calculated using the CKD-EPI equation. As with all creatinine based estimates of kidney function, eGFR values calculated with the CKD-EPI equation are not accurate in patients with acute kidney failure, extremes of body mass or the acutely ill. http://[employer]/[facility] POTEAUnkf eGFR 12(L) >=60 mL/min/1. 73 m?? [facility] Comment: The eGFR was calculated using the CKD-EPI equation. As with all creatinine based estimates of kidney function, eGFR values calculated with the CKD-EPI equation are not accurate in patients with acute kidney failure, extremes of body mass or the acutely ill. http://[employer]/DHnkf Blood specimen (specimen) 08/01/2019 6:25 AM EDT 08/01/2019 6:32 AM EDT Narrative Resulting Agency Comment Spec In Lab Sandhya August APRN CHEMISTRY ORDER ROBBIE [facility] [place] [address] * POCT Glucose (08/01/2019 3:43 AM EDT) Glucose, POC 130 65 - 199 mg/dL [facility] Comment: Supplemental ranges: <140 mg/dL before meals <180 mg/dL all other times of the day Blood specimen (specimen) 08/01/2019 3:43 AM EDT 08/01/2019 3:43 AM EDT Eliot Cohen MD POINT OF CARE TEST O RDERABLES [facility] [place] [address] * POCT Glucose (07/31/2019 11:33 PM EDT) Glucose, POC 175 65 - 199 mg/dL [facility] Comment: Supplemental ranges: <140 mg/dL before meals <180 mg/dL all other times of the day Blood specimen (specimen) 07/31/2019 11:33 PM EDT 07/31/2019 11:33 PM EDT Eliot Cohen MD POINT OF CARE TEST O RDERAROSIE Performing Organization Address City/[facility]/ZIP Co de Phone Number [facility] [place] [address] * POCT Glucose (07/31/2019 7:54 PM EDT) Glucose, POC 178 65 - 199 mg/dL [facility] Comment: Supplemental ranges: <140 mg/dL before meals <180 mg/dL all other times of the day Blood specimen (specimen) 07/31/2019 7:54 PM EDT 07/31/2019 7:54 PM EDT Eliot Cohen MD POINT OF CARE TEST O FREDERICKERAROSIE Performing Organization Address City/[facility]/ZIP Co de Phone Number [facility] [place] [address] * POCT Glucose (07/31/2019 4:04 PM EDT) Glucose, POC 166 65 - 199 mg/dL [facility] Comment: Supplemental ranges: <140 mg/dL before meals <180 mg/dL all other times of the day Blood specimen (specimen) 07/31/2019 4:04 PM EDT 07/31/2019 4:04 PM EDT Eliot Cohen MD POINT OF CARE TEST O RDERABLES Performing Organization Address [facility]/ZIP Co de Phone Number [facility] [place] [address] * (ABNORMAL) Troponin (07/31/2019 3:30 PM EDT) [facility] Troponin-T 0.10(H) 0.00 - 0.00 ng/mL [facility] Comment: The 99th percentile for Troponin T is less than 0.01 ng/mL, any detectable cTnT concentration using this assay should be considered elevated. According to the third universal definition of myocardial infarction the following criteria with a clinical presentation consistent with acute myocardial ischemia meets the diagnosis for a myocardial infarction (SD). Detection of a rise and/or fall of cTnT, with at least one value greater than the 99th percentile (> or = 0.01) and with at least one of the following ?? Symptoms of ischemia ?? New or presumed new significant ZA-zfpcuth-V wave (ST-T) changes or new left bundle [...] additional sample may be indicated. Reference: Third Delong Definition of Myocardial Infarction. Journal of the [place] College of Cardiology 2012;60:1581-98 Blood specimen (specimen) 07/31/2019 3:30 PM EDT 07/31/2019 3:44 PM EDT Narrative Resulting Agency Comment Spec In Lab Sandhya August SALT CUTTER CHEMISTRY ORDER ROBBIE Performing Organization Address [facility]/ZIP Co de Phone Number [facility] [place] [address] * EKG 12 Lead (07/31/2019 3:10 PM EDT) Ventricular rate 113 BPM MUSE SYSTEM Atrial Rate 113 BPM MUSE SYSTEM P-R Interval 184 ms MUSE SYSTEM QRS Duration 96 ms MUSE SYSTEM Q-T Interval 320 ms MUSE SYSTEM QTC Calculated (Bezet) 438 ms MUSE SYSTEM Calculated P [place] 63 degrees MUSE SYSTEM Calculated R [place] 57 degrees MUSE SYSTEM Calculated T [place] 28 degrees MUSE SYSTEM INTERPRETATION Sinus tachycardia with frequent Premature ventricular complexes Abnormal ECG When compared with ECG of 31-JUL-2019 05:49, Fusion complexes are no longer Present Confirmed by MD JOANNA, PENNY ([id number]) on 08/01/2019 8:38:22 AM MUSE SYSTEM 07/31/2019 3:10 PM EDT 08/01/2019 8:38 AM EDT Sandhya Morro August SALT CUTTER ECG ORDERABLES MUSE SYSTEM * ECHO COMPLETE W CONTRAST (07/31/2019 2:25 PM EDT) EF 60 [facility]ART[facility] SYSTEM Anatomical Region Laterality Modality Other 07/31/2019 Narrative 07/31/2019 3:10 PM EDT Procedure: ?Transthoracic Echocardiogram Patient: ?RONNI DELONG A ?(Age): 1960(59y) Med Rec#: ? [id number] ?Sex: ?M ? Site Loc: ? [facility] ?Ht / Wt: ??162(cm)/103(kg) Pt. Loc: ?Adult Floor ? BSA: ?2.06 Study Date: ?? 07/31/2019 ?Pt. Type: Inpatient Tape: ? Referring: Aaron Dover Referring: YANELI Reading: Dev Hernandez ??([id number]) Sales And Events Coordinator: Heredia, Efraín Diagnosis: *Unspecified fall, initial encounter [...] ? Mid-Inferior ?Normal ? Mid-Inferoseptal ?Normal ? [place]-Septal ? Normal ? [place]-Anterior ? Normal ? [place]-Lateral ?Normal ? [place]-Inferior ? Normal ? [place]-Tip ?Normal ? This report has been electronically signed by: Dev Hernandez MD ? 07/31/2019 15:10:05 Images reviewed and interpretation verified [facility] Cardiac Ultrasound Laboratory Procedure Note Dev Hernandez MD - 07/31/2019 Procedure: Transthoracic Echocardiogram Patient: RONNI Gurrola (Age): 1960(59y) Med Rec#: [id number] Sex: M Site Loc: [facility] Ht / Wt: 162(cm)/103(kg) Pt. Loc: Adult Floor BSA: 2.06 Study Date: 07/31/2019 Pt. Type: Inpatient Tape: Referring: Aaron Doevr Referring: YANELI Reading: Dev Hernandez ([id number]) Sales And Events Coordinator: Efraín Heredia Diagnosis: *Unspecified fall, initial encounter [...] Normal Mid-Posterolateral Normal Mid-Inferior Normal Mid-Inferoseptal Normal [place]-Septal Normal [place]-Anterior Normal [place]-Lateral Normal [place]-Inferior Normal [place]-Tip Normal This report has been electronically signed by: Dev Hernandez MD 07/31/2019 15:10:05 Images reviewed and interpretation verified [facility]iac Ultrasound [facility] Aaron Dover MD ECHO ORDERABLES * POCT Glucose (07/31/2019 1:13 PM EDT) Glucose, POC 122 65 - 199 mg/dL [facility] Comment: Supplemental ranges: <140 mg/dL before meals <180 mg/dL all other times of the day Blood specimen (specimen) 07/31/2019 1:13 PM EDT 07/31/2019 1:13 PM EDT Eliot Cohen MD POINT OF CARE TEST O RDERABLES [facility] [place] [address] * POCT Glucose (07/31/2019 7:44 AM EDT) [facility] Glucose, POC 148 65 - 199 mg/dL [facility] Comment: Supplemental ranges: <140 mg/dL before meals <180 mg/dL all other times of the day Blood specimen (specimen) 07/31/2019 7:44 AM EDT 07/31/2019 7:44 AM EDT Eliot Cohen MD POINT OF CARE TEST O RDERABLES Performing Organization Address City/[facility]/ZIP Co de Phone Number [facility] [place] [phone] * EKG 12 Lead (07/31/2019 5:49 AM EDT) [facility] Ventricular rate 108 BPM MUSE SYSTEM Atrial Rate 108 BPM MUSE SYSTEM P-R Interval 192 ms MUSE SYSTEM QRS Duration 98 ms MUSE SYSTEM Q-T Interval 336 ms MUSE SYSTEM QTC Calculated (Bezet) 450 ms MUSE SYSTEM Calculated [place] 58 degrees MUSE SYSTEM Calculated [place] 51 degrees MUSE SYSTEM Calculated T [place] 5 degrees MUSE SYSTEM INTERPRETATION Sinus tachycardia Occasional Premature ventricular complexes and Fusion complexes Cannot rule out Inferior infarct (cited on or before 30-JUL-2019) Poor R-wave progression Abnormal ECG When compared with ECG of 30-JUL-2019 08:59, Fusion complexes are now Present Confirmed by MD David, Dev Barcenas ([id number]) on 07/31/2019 7:59:11 AM MUSE SYSTEM 07/31/2019 5:49 AM EDT 07/31/2019 7:59 AM EDT Eliot Cohen MD ECG ORDERABLES Performing Organization Address City/[facility]/ZIP Co de Phone Number MUSE SYSTEM * (ABNORMAL) Differential, Automated (07/31/2019 4:20 AM EDT) Pathologist [facility] Neutrophil % 71.2 % [facility] Neutrophil Absolute 5.20 1.70 - 6.10 x10(3)/mc L [facility] Lymph % 12.7 % [facility] Lymphocytes Abs 0.9 0.9 - 3.2 x10(3)/ L [facility] Monocyte % 8.5 % [facility] Monocyte Abs 0.6 0.3 - 0.9 x10(3)/[facility] Eos % 6.4 % [facility] Eosinophils Abs 0.5(H) 0.0 - 0.4 x10(3)/[facility] Basophil % 0.4 % [facility] Baso Absolute 0.0 0.0 - 0.1 x10(3)/[facility] Immature Gran % 0.80 % [facility] Comment: Immature granulocytes(IG's)percentage and absolute count will include metamyelocytes, myelocytes, and promyelocytes. Blood smears from CBCs yielding IG's will be scanned manually for concordance. If this scan disagrees with the automated IG or if promyelocytes are noted, a manual differential will be performed. Immature Gran Absolute 0.06(H) 0.00 - 0.04 x10(3)/[facility] Blood specimen (specimen) 07/31/2019 4:20 AM EDT 07/31/2019 4:35 AM EDT Narrative Resulting Agency Comment Spec In Lab Chantale EDGAR HEMATOLOGY ORDERABLE S Performing Organization Address City/State/[facility] Co de Phone Number [facility] [place] [address] * (ABNORMAL) Hemogram (07/31/2019 4:20 AM EDT) White Blood Cell 7.3 4.0 - 9.5 x10(3)/[facility] Red Blood Cell 2.95(L) 4.58 - 5.54 x10(6)/[facility] Hemoglobin 9.2(L) 13.7 - 16.5 gm/dL [facility] Hematocrit 28.6(L) 40.5 - 48.5 % [facility] Mean Cell Volume 96.9(H) 82.9 - 93.1 fL [facility] Mean Cell Hemoglobin 31.2 27.5 - 32.1 pg [facility] Mean Cell Hemoglobin Concentration 32.2 32.0 - 35.7 gm/dL [facility] Platelet 128(L) 145 - 357 x10(3)/mc L [facility] RDW Standard Deviation 49.7(H) 36.0 - 45.0 fL [facility] RDW coefficient of variation 14.5(H) 11.4 - 13.8 % [facility] Mean Platelet Volume 10.7 7.6 - 12.9 fL [facility] NRBC% auto 0.0 % [facility] NRBC Absolute 0.000 0.000 - 0.000 x10(3)/mc L [facility] Blood specimen (specimen) 07/31/2019 4:20 AM EDT 07/31/2019 4:35 AM EDT Narrative Resulting Agency Comment Spec In Lab Chantale EDGAR HEMATOLOGY ORDERABLE S Performing Organization Address City/State/[facility] Co de Phone Number [facility] [place] [address] * (ABNORMAL) Troponin (07/31/2019 4:20 AM EDT) Troponin-T 0.09(H) 0.00 - 0.00 ng/mL [facility] Comment: The 99th percentile for Troponin T is less than 0.01 ng/mL, any detectable cTnT concentration using this assay should be considered elevated. According to the third universal definition of myocardial infarction the following criteria with a clinical presentation consistent with acute myocardial ischemia meets the diagnosis for a myocardial infarction (SD). Detection of a rise and/or fall of cTnT, with at least one value greater than the 99th percentile (> or = 0.01) and with at least one of the following ?? Symptoms of ischemia ?? New or presumed new significant BQ-ztncrkd-C wave (ST-T) changes or new left bundle [...] additional sample may be indicated. Reference: Third Delong Definition of Myocardial Infarction. Journal of the [place] [employer] 2012;60:1581-98 Blood specimen (specimen) 07/31/2019 4:20 AM EDT 07/31/2019 4:35 AM EDT Narrative Resulting Agency Comment Spec In Lab Aaron Dover MD CHEMISTRY ORDERABLES Performing Organization Address [facility]/ZIP Co de Phone Number [facility] [place] [address] * Magnesium (07/31/2019 4:20 AM EDT) Pathologist [facility] Magnesium 0.92 0.69 - 1.07 mmol/L [facility] Blood specimen (specimen) 07/31/2019 4:20 AM EDT 07/31/2019 4:35 AM EDT Narrative Resulting Agency Comment Spec In Lab Aaron Dover MD CHEMISTRY ORDERABLES Performing Organization Address [facility] Co de Phone Number [facility] [place] [address] * (ABNORMAL) Basic Metabolic Panel (non-fasting) (07/31/2019 4:20 AM EDT) Glucose 110 65 - 199 mg/dL [facility] Comment:Diabetes: >=200 mg/d L plus symptoms Blood Urea Nitrogen 48(H) 10 - 20 mg/dL [facility] Creatinine 6.13(H) 0.80 - 1.50 mg/dL [facility] Comment:result rechecked-[facility] Sodium 133(L) 135 - 145 mmol/L [facility] Potassium 4.4 3.5 - 5.0 mmol/L [facility] Comment: Please note: ??Patients with WBC >100,000 may have falsely elevated Potassium levels. ??For accurate Potassium quantification in these patients send serum separator tube (gold top) for subsequent determinations. ??Contact the Clinical Chemistry Laboratory if there are any questions. Chloride 92(L) 98 - 107 mmol/L [facility] Carbon Dioxide 27 22 - 31 mmol/L [facility] Anion Gap 14 5 - 15 mmol/L [facility] Calcium 8.5 8.5 - 10.5 mg/dL [facility] Est Glomerular Filtration Rate 9(L) >=60 mL/min/1. 73 m?? [facility] Comment: The eGFR was calculated using the CKD-EPI equation. As with all creatinine based estimates of kidney function, eGFR values calculated with the CKD-EPI equation are not accurate in patients with acute kidney failure, extremes of body mass or the acutely ill. http://[employer]/[facility] eGFR 11(L) >=60 mL/min/1. 73 m?? [facility] Comment: The eGFR was calculated using the CKD-EPI equation. As with all creatinine based estimates of kidney function, eGFR values calculated with the CKD-EPI equation are not accurate in patients with acute kidney failure, extremes of body mass or the acutely ill. http://[employer]/[facility]nk[facility] Blood specimen (specimen) 07/31/2019 4:20 AM EDT 07/31/2019 4:35 AM EDT Narrative Resulting Agency Comment Spec In Lab Aaron Dover MD CHEMISTRY ORDERABLES [facility] [place] [address] * POCT Glucose (07/31/2019 4:08 AM EDT) Glucose, POC 129 65 - 199 mg/dL [facility] Comment: Supplemental ranges: <140 mg/dL before meals <180 mg/dL all other times of the day Blood specimen (specimen) 07/31/2019 4:08 AM EDT 07/31/2019 4:08 AM EDT Eliot Cohen MD POINT OF CARE TEST O RDERABLES [facility] [place] [address] * POCT Glucose (07/30/2019 10:52 PM EDT) Glucose, POC 140 65 - 199 mg/dL [facility] Comment: Supplemental ranges: <140 mg/dL before meals <180 mg/dL all other times of the day Blood specimen (specimen) 07/30/2019 10:52 PM EDT 07/30/2019 10:52 PM EDT Eliot Cohen MD POINT OF CARE TEST O RDERAROSIE Performing Organization Address [facility]/ZIP Co de Phone Number [facility] [place] [address] * (ABNORMAL) POCT Glucose (07/30/2019 7:29 PM EDT) Glucose, POC 217(H) 65 - 199 mg/dL [facility] Comment: Supplemental ranges: <140 mg/dL before meals <180 mg/dL all other times of the day Blood specimen (specimen) 07/30/2019 7:29 PM EDT 07/30/2019 7:29 PM EDT Aaron Dover MD POINT OF CARE TEST O RDERABLES Performing Organization Address City/[facility]/ZIP Co de Phone Number [facility] [place] [address] * (ABNORMAL) Troponin (07/30/2019 6:10 PM EDT) Troponin-T 0.08(H) 0.00 - 0.00 ng/mL [facility] Comment: The 99th percentile for Troponin T is less than 0.01 ng/mL, any detectable cTnT concentration using this assay should be considered elevated. According to the third universal definition of myocardial infarction the following criteria with a clinical presentation consistent with acute myocardial ischemia meets the diagnosis for a myocardial infarction (SD). Detection of a rise and/or fall of cTnT, with at least one value greater than the 99th percentile (> or = 0.01) and with at least one of the following ?? Symptoms of ischemia ?? New or presumed new significant PT-oouhztt-T wave (ST-T) changes or new left bundle [...] additional sample may be indicated. Reference: Third Delong Definition of Myocardial Infarction. Journal of the [place] [employer] 2012;60:1581-98 Blood specimen (specimen) 07/30/2019 6:10 PM EDT 07/30/2019 6:19 PM EDT Narrative Resulting Agency Comment Spec In Lab Penny Conklin MD CHEMISTRY ORDERABLES Performing Organization Address [facility]/ZIP Co de Phone Number [facility] [place] [address] * POCT Glucose (07/30/2019 4:13 PM EDT) [facility] Signature Glucose, POC 194 65 - 199 mg/dL [facility] Comment: Supplemental ranges: <140 mg/dL before meals <180 mg/dL all other times of the day Blood specimen (specimen) 07/30/2019 4:13 PM EDT 07/30/2019 4:13 PM EDT Aaron Dover MD POINT OF CARE TEST O RDERABLES Performing Organization Address City/[facility]/ZIP Co de Phone Number [facility] [place] [address] * (ABNORMAL) POCT Glucose (07/30/2019 1:18 PM EDT) Glucose, POC 225(H) 65 - 199 mg/dL [facility] Comment: Supplemental ranges: <140 mg/dL before meals <180 mg/dL all other times of the day Blood specimen (specimen) 07/30/2019 1:18 PM EDT 07/30/2019 1:18 PM EDT Aaron Dover MD POINT OF CARE TEST O RDERABLES [facility] [place] [address] * (ABNORMAL) Troponin (07/30/2019 12:30 PM EDT) [facility] Troponin-T 0.07(H) 0.00 - 0.00 ng/mL [facility] Comment: The 99th percentile for Troponin T is less than 0.01 ng/mL, any detectable cTnT concentration using this assay should be considered elevated. According to the third universal definition of myocardial infarction the following criteria with a clinical presentation consistent with acute myocardial ischemia meets the diagnosis for a myocardial infarction (SD). Detection of a rise and/or fall of cTnT, with at least one value greater than the 99th percentile (> or = 0.01) and with at least one of the following ?? Symptoms of ischemia ?? New or presumed new significant WK-bongpiv-Y wave (ST-T) changes or new left bundle [...] additional sample may be indicated. Reference: Third Delong Definition of Myocardial Infarction. Journal of the [place] [employer] 2012;60:1581-98 Blood specimen (specimen) 07/30/2019 12:30 PM EDT 07/30/2019 12:42 PM EDT Narrative Resulting Agency Comment Spec In Lab Penny Conklin MD CHEMISTRY ORDERABLES [facility] [place] [address] * XR Clavicle Right (Generic) (07/30/2019 12:23 [...] below. ? Electronically signed by: ALEXANDER Corral [facility] ([phone]), at 07/30/2019 12:55 PM Narrative 07/30/2019 12:55 [...] humeral fracture is not included in the liyox-ou-fkro. Known right second rib fracture is not visible. There is curvilinear density along the right apical and lateral chest wall that is similar to prior, most likely extrapleural blood. No distended loops of bowel. EKG leads overlie the patient and obscure the eqbmj-ei-wabl. Procedure Note Rosio Burt MD - 07/30/2019 [...] humeral fracture is not included in the xhoqa-zb-mtao. Knownright second rib fracture is not visible. There is curvilinear density along theright apical and lateral chest wall that is similar to prior, most likelyextrapleural blood. No distended loops of bowel. EKG leads overlie the patient and obscurethe fjozs-nr-ivgi. IMPRESSION 1. Small left pleural fluid collection [...] Glucose, POC 255(H) 65 - 199 mg/dL [facility] Comment: Supplemental ranges: <140 mg/dL before meals <180 mg/dL all other times of the day Blood specimen (specimen) 07/30/2019 12:18 PM EDT 07/30/2019 12:18 PM EDT Aaron Dover MD POINT OF CARE TEST O RDERABLES Performing Organization Address [facility] Co de Phone Number [facility] [place] [address] * (ABNORMAL) POCT Glucose (07/30/2019 10:02 AM EDT) Glucose, POC 266(H) 65 - 199 mg/dL [facility] Comment: Supplemental ranges: <140 mg/dL before meals <180 mg/dL all other times of the day Blood specimen (specimen) 07/30/2019 10:02 AM EDT 07/30/2019 10:02 AM EDT Aaron Dover MD POINT OF CARE TEST O FREDERICKERAROSIE Performing Organization Address City/[facility]/ZIP Co de Phone Number [facility] [place] [address] * EKG 12 Lead (07/30/2019 8:59 AM EDT) Ventricular rate 108 BPM MUSE SYSTEM Atrial Rate 108 BPM MUSE SYSTEM P-R Interval 182 ms MUSE SYSTEM QRS Duration 94 ms MUSE SYSTEM Q-T Interval 344 ms MUSE SYSTEM QTC Calculated (Bezet) 460 ms MUSE SYSTEM Calculated P [place] 65 degrees MUSE SYSTEM Calculated R [place] 46 degrees MUSE SYSTEM Calculated T Mound 60 degrees MUSE SYSTEM INTERPRETATION Sinus tachycardia with frequent Premature ventricular complexes Possible Inferior infarct (cited on or before 30-JUL-2019) Abnormal ECG When compared with ECG of 30-JUL-2019 00:51, No significant change was found Confirmed by MD JOANNA, PENNY ([id number]) on 07/30/2019 9:45:15 AM MUSE SYSTEM 07/30/2019 8:59 AM EDT 07/30/2019 9:45 AM EDT Aaron Dover MD ECG ORDERABLES Performing Organization Address [facility] Co de Phone Number MUSE SYSTEM * (ABNORMAL) POCT Glucose (07/30/2019 8:15 AM EDT) Glucose, POC 268(H) 65 - 199 mg/dL [facility] Comment: Supplemental ranges: <140 mg/dL before meals <180 mg/dL all other times of the day Blood specimen (specimen) 07/30/2019 8:15 AM EDT 07/30/2019 8:15 AM EDT Aaron Dover MD POINT OF CARE TEST O RDERABLES [facility] [place] [address] * CT Angiogram Carotids (07/30/2019 8:04 AM [...] below. ? Electronically signed by: ALEXANDER Figueroa [facility] ([phone]), at 07/30/2019 8:27 AM Narrative 07/30/2019 8:27 [...] below. ? Electronically signed by: ALEXANDER Figueroa [facility] ([phone]), at 07/30/2019 8:27 AM Narrative 07/30/2019 8:27 [...] contact the number below. Kimani Kiser MD [facility] ORDERABLES * (ABNORMAL) Basic Metabolic Panel (non-fasting) (07/30/2019 6:10 AM EDT) Glucose 233(H) 65 - 199 mg/dL [facility] Comment:Diabetes: >=200 mg/d L plus symptoms Blood Urea Nitrogen 37(H) 10 - 20 mg/dL [facility] Creatinine 4.89(H) 0.80 - 1.50 mg/dL [facility] Sodium 136 135 - 145 mmol/L [facility] Potassium 4.5 3.5 - 5.0 mmol/L [facility] Comment: Please note: ??Patients with WBC >100,000 may have falsely elevated Potassium levels. ??For accurate Potassium quantification in these patients send serum separator tube (gold top) for subsequent determinations. ??Contact the Clinical Chemistry Laboratory if there are any questions. Chloride 94(L) 98 - 107 mmol/L [facility] Carbon Dioxide 29 22 - 31 mmol/L [facility] Anion Gap 13 5 - 15 mmol/L [facility] Calcium 8.6 8.5 - 10.5 mg/dL [facility] Est Glomerular Filtration Rate 12(L) >=60 mL/min/1. 73 m?? [facility] Comment: The eGFR was calculated using the CKD-EPI equation. As with all creatinine based estimates of kidney function, eGFR values calculated with the CKD-EPI equation are not accurate in patients with acute kidney failure, extremes of body mass or the acutely ill. http://[employer]/[facility] eGFR 14(L) >=60 mL/min/1. 73 m?? [facility] Comment: The eGFR was calculated using the CKD-EPI equation. As with all creatinine based estimates of kidney function, eGFR values calculated with the CKD-EPI equation are not accurate in patients with acute kidney failure, extremes of body mass or the acutely ill. http://[employer]/[facility]EA[facility] Blood specimen (specimen) 07/30/2019 6:10 AM EDT 07/30/2019 6:17 AM EDT Narrative Resulting Agency Comment Spec In Lab Penny Conklin MD CHEMISTRY ORDERABLES [facility] [place] [address] * Phosphorus (07/30/2019 6:10 AM EDT) Phosphorus 4.5 2.5 - 4.5 mg/dL [facility] Blood specimen (specimen) 07/30/2019 6:10 AM EDT 07/30/2019 6:17 AM EDT Narrative Resulting Agency Comment Spec In Lab Aaron Dover MD CHEMISTRY ORDERABLES Performing Organization Address City/[facility]/ZIP Co de Phone Number [facility] [place] [address] * Magnesium (07/30/2019 6:10 AM EDT) Pathologist [facility] Magnesium 0.81 0.69 - 1.07 mmol/L [facility] Blood specimen (specimen) 07/30/2019 6:10 AM EDT 07/30/2019 6:17 AM EDT Narrative Resulting Agency Comment Spec In Lab Aaron Dover MD CHEMISTRY ORDERABLES Performing Organization Address [facility] Co de Phone Number [facility] [place] [address] * (ABNORMAL) Troponin (07/30/2019 6:10 AM EDT) Troponin-T 0.06(H) 0.00 - 0.00 ng/mL [facility] Comment: The 99th percentile for Troponin T is less than 0.01 ng/mL, any detectable cTnT concentration using this assay should be considered elevated. According to the third universal definition of myocardial infarction the following criteria with a clinical presentation consistent with acute myocardial ischemia meets the diagnosis for a myocardial infarction (SD). Detection of a rise and/or fall of cTnT, with at least one value greater than the 99th percentile (> or = 0.01) and with at least one of the following ?? Symptoms of ischemia ?? New or presumed new significant OY-cwsrdtg-J wave (ST-T) changes or new left bundle [...] additional sample may be indicated. Reference: Third Delong Definition of Myocardial Infarction. Journal of the [place] [employer] 2012;60:1581-98 Blood specimen (specimen) 07/30/2019 6:10 AM EDT 07/30/2019 6:17 AM EDT Narrative Resulting Agency Comment Spec In Lab Penny Conklin MD CHEMISTRY ORDERABLES Performing Organization Address [facility] Co de Phone Number [facility] [place] [address] * POCT Glucose (07/30/2019 1:38 AM EDT) Glucose, POC 175 65 - 199 mg/dL [facility] Comment: Supplemental ranges: <140 mg/dL before meals <180 mg/dL all other times of the day Blood specimen (specimen) 07/30/2019 1:38 AM EDT 07/30/2019 1:38 AM EDT Aaron Dover MD POINT OF CARE TEST O RDERABLES Performing Organization Address [facility] Co de Phone Number [facility] [place] [address] * XR Elbow 3 Views Right (GENERIC) [...] below. ? Electronically signed by: Huang Hernandez [facility] ([phone]), at 07/30/2019 1:49 AM Narrative 07/30/2019 1:49 AM EDT EXAMINATION: XR [...] number below. Electronically signed by: ALEXANDER Weathers [facility]([phone]), at 07/30/2019 1:49 AM Kimani Kiser MD [...] below. ? Electronically signed by: Huang Hernandez [facility] ([phone]), at 07/30/2019 1:50 AM Narrative 07/30/2019 1:50 AM EDT EXAMINATION: XR [...] (Bezet) 472 ms MUSE SYSTEM Calculated P [place] 64 degrees MUSE SYSTEM Calculated R [place] 57 degrees MUSE SYSTEM Calculated [place] 49 degrees MUSE SYSTEM INTERPRETATION Sinus tachycardia [...] number below. ? Electronically signed by: Huang Hernandez, [facility] ([phone]), at 07/30/2019 1:42 AM Narrative 07/30/2019 1:42 AM EDT EXAMINATION: REQUEST FOR 2ND READ CT CHEST ABDOMEN PELVIS CLINICAL HISTORY: s/p fall; What Modality is the exam? CT Scan; Body Part (please add comments as necessary): chest abdomen pelvis; Sending Institution [facility]; Date of exam 20190729; I believe [...] add comments as necessary): [facility] abdomen pelvis[facility]; Date of exam [id number]; I believe [...] exclude potential malignancy. Alternatively, depending on the iemlg-gz-ydzt, this can potentially be reevaluated on clinically-decided [...] necessary): Head and C spine; Sending Institution [facility]; Date of exam [id number]; I believe [...] as necessary): Head and C spine; [facility] Date of exam [id number]; I believe [...] exclude potential malignancy. Alternatively, depending on the mmqtj-bo-qqek, this can potentially be reevaluated on clinically-decided [...] number below. Kimani Kiser MD [facility] ORDERABLES * XR Chest One [...] below. ? Electronically signed by: Huang Hernandez [facility] ([phone]), at 07/30/2019 1:08 AM Narrative 07/30/2019 1:08 AM EDT EXAMINATION: XR [...] Hemoglobin A1c 8.6(H) 4.3 - 5.6 % [facility] Comment: Reference Range: 4.3 [...] 1, S67-74 Estimated Average Glucose 201 mg/dL [facility] Comment: eAG equivalents for [...] into estimated average glucose values. ??Diabetes Care 2008:31(8):9197-7629. Blood specimen (specimen) Venous Draw / Unknown 07/29/2019 11:59 PM EDT 07/30/2019 4:51 PM EDT Narrative Resulting Agency Comment Spec In Lab Narcisa Tovar APRN CHEMISTRY ORDERABLE S [facility] [place] [address] * (ABNORMAL) Troponin (07/29/2019 11:59 PM EDT) Troponin-T 0.07(H) 0.00 - 0.00 ng/mL [facility] Comment: Called by: JOHANNA, Read back by: Paula Mallory, Date/Time:07/30/19 01:23. The 99th percentile for Troponin T is less than 0.01 ng/mL, any detectable cTnT concentration using this assay should be considered elevated. According to the third universal definition of myocardial infarction the following criteria with a clinical presentation consistent with acute myocardial ischemia meets the diagnosis for a myocardial infarction (SD). Detection of a rise and/or fall of cTnT, with at least one value greater than the 99th percentile (> or = 0.01) and with at least one of the following ?? Symptoms of ischemia ?? New or presumed new significant YR-ylzkvvh-Q wave (ST-T) changes or new left bundle [...] additional sample may be indicated. Reference: Third Delong Definition of Myocardial Infarction. Journal of [employer] [place] [employer] 2012;60:1581-98 Blood specimen (specimen) Venous Draw / Unknown 07/29/2019 11:59 PM EDT 07/30/2019 12:04 AM EDT Narrative Resulting Agency Comment Spec In Lab Kimani Kiser MD CHEMISTRY ORDERABLES Performing Organization Address [facility] Co de Phone Number [facility] [place] [address] * ABORH Recheck Status (07/29/2019 11:59 PM EDT) ABORH Type Recheck Completed [facility] Blood specimen (specimen) 07/29/2019 11:59 PM EDT 07/30/2019 12:03 AM EDT Narrative Resulting Agency Comment Spec In Lab Aaron Dover MD BLOOD BANK LAB ORDER ROBBIE Performing Organization Address City/[facility] Co de Phone Number [facility] [place] [address] * Antibody screen (07/29/2019 11:59 PM EDT) Pathologist [facility] Ab Screen Interp Negative [facility] Expires at [id number] on: 08/01/2019 [facility] Blood specimen (specimen) 07/29/2019 11:59 PM EDT 07/30/2019 12:03 AM EDT Narrative Resulting Agency Comment Spec In Lab Aaron Dover MD BLOOD BANK LAB ORDER ROBBIE [facility] [place] [address] * ABO/Rh Typing (07/29/2019 11:59 PM EDT) [facility] ABORH Type A Pos [facility] Blood specimen (specimen) 07/29/2019 11:59 PM EDT 07/30/2019 12:03 AM EDT Narrative Resulting Agency Comment Spec In Lab Aaron Dover MD BLOOD BANK LAB ORDER ROBBIE Performing Organization Address City/[facility]/ZIP Co de Phone Number [facility] [place] [address] * Gold Tube HOLD (07/29/2019 11:59 PM EDT) [facility] Gold Hold Sample in lab. [facility] Blood specimen (specimen) Venous Draw / Unknown 07/29/2019 11:59 PM EDT 07/30/2019 12:05 AM EDT Kimani Kiser MD CHEMISTRY ORDERABLES [facility] [place] [address] * (ABNORMAL) Differential, Automated (07/29/2019 11:59 PM EDT) [facility] Neutrophil % 83.4 % [facility] Neutrophil Absolute 9.43(H) 1.70 - 6.10 x10(3)/[facility] Lymph % 8.0 % [facility] Lymphocytes Abs 0.9 0.9 - 3.2 x10(3)/[facility] Monocyte % 6.9 % [facility] Monocyte Abs 0.8 0.3 - 0.9 x10(3)/[facility] Eos % 0.7 % [facility] Eosinophils Abs 0.1 0.0 - 0.4 x10(3)/[facility] Basophil % 0.3 % [facility] Baso Absolute 0.0 0.0 - 0.1 x10(3)/[facility] [facility] Immature Gran % 0.70 % [facility] Comment: Immature granulocytes(IG's)percentage and absolute count will include metamyelocytes, myelocytes, and promyelocytes. Blood smears from CBCs yielding IG's will be scanned manually for concordance. If this scan disagrees with the automated IG or if promyelocytes are noted, a manual differential will be performed. Immature Gran Absolute 0.08(H) 0.00 - 0.04 x10(3)/[facility] Blood specimen (specimen) 07/29/2019 11:59 PM EDT 07/30/2019 12:04 AM EDT Narrative Resulting Agency Comment Spec In Lab Kimani Kiser MD HEMATOLOGY ORDERABLE S [facility] [place] [address] * (ABNORMAL) Hemogram (07/29/2019 11:59 PM EDT) White Blood Cell 11.3(H) 4.0 - 9.5 x10(3)/[facility] Red Blood Cell 3.37(L) 4.58 - 5.54 x10(6)/[facility] Hemoglobin 10.9(L) 13.7 - 16.5 gm/dL [facility] Hematocrit 32.1(L) 40.5 - 48.5 % [facility] Mean Cell Volume 95.3(H) 82.9 - 93.1 fL [facility] Mean Cell Hemoglobin 32.3(H) 27.5 - 32.1 pg [facility] Mean Cell Hemoglobin Concentration 34.0 32.0 - 35.7 gm/dL [facility] Platelet 135(L) 145 - 357 x10(3)/mc L [facility] RDW Standard Deviation 47.7(H) 36.0 - 45.0 fL [facility] RDW coefficient of variation 13.9(H) 11.4 - 13.8 % [facility] Mean Platelet Volume 9.7 7.6 - 12.9 [facility] NRBC% auto 0.0 % [facility] NRBC Absolute 0.000 0.000 - 0.000 x10(3)/mc L [facility] Blood specimen (specimen) 07/29/2019 11:59 PM EDT 07/30/2019 12:04 AM EDT Narrative Resulting Agency Comment Spec In Lab Kimani Kiser MD HEMATOLOGY ORDERABLE S [facility] [place] [address] * L-Lactate2 Whole Blood (07/29/2019 11:59 PM EDT) Lactate WB 1.2 0.5 - 2.2 mmol/L [facility] Blood specimen (specimen) 07/29/2019 11:59 PM EDT 07/29/2019 11:[address] Evgeny Paez MD CHEMISTRY ORDERABLES [facility] [place] [address] * Ethanol Level (07/29/2019 11:59 PM EDT) Ethanol <100 <=99 mg/L [facility] Comment: Greater than 800 mg/L (0.08%) should be considered intoxicated. 3400 to 4500 mg/L (0.34 - 0.45%) is considered severe intoxication. Greater than 5500 mg/L (0.55%) is usually fatal. Blood specimen (specimen) 07/29/2019 11:59 PM EDT 07/30/2019 12:04 AM EDT Narrative Resulting Agency Comment Spec In Lab Kimani Kiser MD CHEMISTRY ORDERABLES Performing Organization Address [facility] Co de Phone Number [facility] [place] [address] * APTT (07/29/2019 11:59 PM EDT) Partial Thromboplastin Time 34 25 - 37 sec [facility] Comment: The PTT is NOT appropriate for heparin monitoring. Use the Anti-Xa level for heparin monitoring (HEP UFH) or LMWH monitoring (HEP LMW). A PTT less than 37 seconds generally indicates adequate hemostasis. Blood specimen (specimen) 07/29/2019 11:59 PM EDT 07/30/2019 12:04 AM EDT Narrative Resulting Agency Comment Spec In Lab Kimani Kiser MD HEMATOLOGY ORDERABLE S Performing Organization Address [facility] Co de Phone Number [facility] [place] [address] * Prothrombin Time (07/29/2019 11:59 PM EDT) Prothrombin Time 12.1 9.4 - 12.5 sec [facility] International Normalization Ratio 1.0 [facility] Comment: An INR <2.0 [...] Lab Kimani Kiser MD HEMATOLOGY ORDERABLE S [facility] [place] [address] * (ABNORMAL) Basic Metabolic Panel (non-fasting) (07/29/2019 11:59 PM EDT) Glucose 159 65 - 199 mg/dL [facility] Comment:Diabetes: >=200 mg/d L plus symptoms Blood Urea Nitrogen 34(H) 10 - 20 mg/dL [facility] Creatinine 4.59(H) 0.80 - 1.50 mg/dL [facility] Sodium 136 135 - 145 mmol/L [facility] Potassium 3.9 3.5 - 5.0 mmol/L [facility] Comment: Please note: ??Patients with WBC >100,000 may have falsely elevated Potassium levels. ??For accurate Potassium quantification in these patients send serum separator tube (gold top) for subsequent determinations. ??Contact the Clinical Chemistry Laboratory if there are any questions. Chloride 93(L) 98 - 107 mmol/L [facility] Carbon Dioxide 31 22 - 31 mmol/L [facility] Anion Gap 12 5 - 15 mmol/L [facility] Calcium 8.8 8.5 - 10.5 mg/dL [facility] Est Glomerular Filtration Rate 13(L) >=60 mL/min/1. 73 m?? [facility] Comment: The eGFR was calculated using the CKD-EPI equation. As with all creatinine based estimates of kidney function, eGFR values calculated with the CKD-EPI equation are not accurate in patients with acute kidney failure, extremes of body mass or the acutely ill. http://[employer]/[facility]OTEAUnkf eGFR 15(L) >=60 mL/min/1. 73 m?? [facility] Comment: The eGFR was calculated using the CKD-EPI equation. As with all creatinine based estimates of kidney function, eGFR values calculated with the CKD-EPI equation are not accurate in patients with acute kidney failure, extremes of body mass or the acutely ill. http://[employer]/[facility]nk[facility] Blood specimen (specimen) 07/29/2019 11:59 PM EDT 07/30/2019 12:04 AM EDT Narrative Resulting Agency Comment Spec In Lab Kimani Kiser MD CHEMISTRY ORDERABLES Performing Organization Address City/[facility]/ZIP Co de Phone Number [facility] [place] [address] * Film Library- Storage Only DX Upper Extremity (07/29/2019 10:14 PM EDT) Narrative [facility] - 07/29/2019 10:14 PM EDT This exam is auto-finalizing. It's purpose is for storage only. Aaron Dover MD [facility] FILM LIBRARY ORD ERABLES Performing Organization Address [facility] de Phone Number [place], [place] * Film Library- Storage Only DX Hip (07/29/2019 10:12 PM EDT) Narrative [facility] - 07/29/2019 10:12 PM EDT This exam is auto-finalizing. It's purpose is for storage only. Aaron Dover MD [facility] FILM LIBRARY ORD ERABLES Performing Organization Address [facility] Co de Phone Number [place], [place] * Film Library- Storage Only DX Shoulder (07/29/2019 10:11 PM EDT) Narrative [facility] - 07/29/2019 10:11 PM EDT This exam is auto-finalizing. It's purpose is for storage only. Aaron Dover MD [facility] FILM LIBRARY ORD ERABLES Performing Organization Address [facility] de Phone Number [place], [place] documented in this encounter Visit Diagnoses [...] bg [phone] (Not Given - Provider: Aicha Sanat RN - Reason: Order parameters not met) [...] Routine documented in this encounter Care Teams Software Verification Engineer Relationship Specialty Start Date End Date Jarad Keller DNP PCP - General Family Medicine 06/05/18 02/09/21 documented as of this encounter
--- OUTSIDE RECORDS SUMMARY | 2023-12-31 17:05 | XMS_ITS | Encounter Summary ---
Author Organization [facility] [place] [place] [address] Care Team Providers Care Milk Truck Driver Name Role Phone Jarad Keller DNP Primary Care Provider [phone] Reason for Visit * Reason Onset Date Comments Medication Refill 06/25/2019 Encounter Details Date Type Department Care Team (Late st Contact Info) Description 06/25/2019 Refill [place] [address] Ceasar Roy MD [facility] [place] [address] Social History Tobacco Use Types Packs/Day Years [...] on filedocumented in this encounter Care Teams Milk Truck Driver Relationship Specialty Start Date End Date Jarad Keller DNP PCP - General Family Medicine 06/05/18 02/09/21 documented as of this encounter
--- OUTSIDE RECORDS SUMMARY | 2023-12-31 17:05 | XMS_ITS | Encounter Summary ---
Author Organization [facility] [place] [address] Care Team Providers Care Cleaning Technician Name Role Phone Jarad Keller DANIKA Primary Care Provider [phone] Reason for Referral * Consultation (Routine) - Specialty Diagnoses / Procedures Referred By Puneet hallman Referred To Contact Ophthalmology Diagnoses Type 2 diabetes mellitus with retinopathy, with long-term current use of insulin, macular edema presence unspecified, unspecified laterality, unspecified retinopathy severity Ceasar Roy MD [facility] [place] [address] Gudelia Carter OD [facility] [place] [address] Referral ID Status Reason Start Date Expiration Date V isits Requested Visits Authorized [id number] Consult, Test & Treat 08/18/2018 08/18/2019 1 1 Reason for Visit * Consultation (Routine) - Specialty Diagnoses / Procedures Referred By Contac t Referred To Contact Endocrinology Diagnoses DM TYPE 2, END STAGE RENAL DISEASE Jarad Keller, DNP [address] [place] [address] [facility] Endocrinology [address] [place] [address] Referral ID Status Reason Start Date Expiration Date V isits Requested Visits Authorized [id number] Consult, Test & Treat [facility] 06/05/2018 06/05/2019 6 6 Encounter Details Date Type Department Care Team (Late st Contact Info) Description 08/18/2018 9:00 AM EDT Office Visit [place] [address] Ceasar Roy MD [facility] [address] Type 2 diabetes mellitus with retinopathy, with [...] type 2 diabetes. He recently moved from [place], and since moving to this area DM [...] renal transplant and has established care with [facility] team. He was told that he needs [...] Relevant surgical history: S/p CABG x2 2015 ([facility], [place]) HD site: [facility] on //Tue 24 dietary recall: Eats two meals daily, sometimes breakfast Breakfast: sausage, eggs Lunch: Peanut butter sandwich Dinner: albanian food Doesn't usually snack Drinks: Diet soda, water Has worked with clerk typist in past but did not find it helpful Exercise: not able to exercise much due to hip pain Meter: one touch. 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 No smoking, former quit age [...] unit (V-GO 40) Device, 40 Units by [facility].(Non-Drug; Combo Route) route daily., [...] Office Visit from 08/18/2018 in Endocrinology at [place] Office Visit from 06/08/2018 in Solid Organ Transplant at [place] Weight 103 kg (227 lb) 1 08/18/2018 [...] yearly eye exam, I made referral to [facility] ophthalmology given complexity of his retinopathy - medications: restart Vgo 40 and 6 clicks with each meal (12 clicks) 2) HTN: His BP is elevated today but he tells me he runs low at HD, so I will defer potential medication titration to his cab starter 3) Obesity class II with serious comorbidity - we discussed at length that loss of 5-10% of his body weight would have significant positive impact to improve cardiometabolic risk - encouraged him to increase activity as tolerated to 30 minutes on most days - I strongly recommend referral to weight and wellness center at [facility]. He will discuss with his due to complexity of getting rides to [facility] and let me know if he would like a referral Please do not hesitate to contact me with questions A note will be sent to the referring provider Return to clinic 6-8 weeks Ceasar Roy MD Sales Account Representativewater resource engineering specialist Endocrinology [facility] documented in this encounter Plan of [...] present documented in this encounter Care Teams Cleaning Technician Relationship Specialty Start Date End Date Jarad Keller DNP PCP - General Family Medicine 06/05/18 02/09/21 documented as of this encounter
--- OUTSIDE RECORDS SUMMARY | 2023-12-31 17:05 | XMS_ITS | Encounter Summary ---
[facility] Organization [facility] [place] [address] Care Team Providers Care Art Educator Name Role Phone Jarad Keller DNP Primary Care Provider [phone] Encounter Details Date Type Department Care Team (Late st Contact Info) Description 10/19/2018 Telephone [place]ph[place] [address] Too Morgan MD [facility] [place] [address] Social History Tobacco Use Types Packs/Day Years [...] in dialysis. He was recently admitted to [facility]. He was admitted for cellulitis [...] dialysis can be done. We will call [facility] to see if they can accept him in transfer. documented in this encounter Plan of Treatment Not on file documented as of this encounter Visit Diagnoses Not on filedocumented in this encounter Care Teams Art Educator Relationship Specialty Start Date End Date Jarad Keller DNP PCP - General Family Medicine 06/05/18 02/09/21 documented as of this encounter
--- OUTSIDE RECORDS SUMMARY | 2023-12-31 17:05 | XMS_ITS | Encounter Summary ---
Author Organization [facility] [place] [address] Care Team Providers Care Or Rn Name Role Phone Jarad Keller DANIKA Primary Care Provider [phone] Reason for Visit * Consultation (Routine) - Closed Specialty Diagnoses / Procedures Referred By Puneet hallman Referred To Contact Transplant Procedures TXP Too Jang MD [facility] [place] [address] Young Watts MD [facility] [place] [address] Referral ID Status Reason Start Date Expiration Date Visits Re quested Visits Authorized [id number] Closed 05/09/2018 05/09/2019 1 1 Encounter Details Date Type Department Care Team (Latest Contact Info) Description 06/08/2018 9:00 AM EST Clinical Support [place] [address] Young Watts MD [facility] [place] [address] Pre-transplant evaluation for kidney transplant Social History [...] examination documented in this encounter Care Teams Or Rn Relationship Specialty Start Date End Date Jarad Keller DNP PCP - General Family Medicine 06/05/18 02/09/21 documented as of this encounter
--- OUTSIDE RECORDS SUMMARY | 2023-12-31 17:05 | XMS_ITS | Encounter Summary ---
[place] [address] Care Team Providers Care Garage Hand Name Role Phone Jarad Keller DNP Primary Care Provider [phone] Reason for Visit * Reason Onset Date Comments Medication Refill 06/15/2019 Encounter Details Date Type Department Care Team (Late st Contact Info) Description 06/15/2019 [place] [address] Ray Pearl RN Social History Tobacco Use [...] on filedocumented in this encounter Care Teams Garage Hand Relationship Specialty Start Date End Date Jarad Keller DNP PCP - General Family Medicine 06/05/18 02/09/21 documented as of this encounter
--- OUTSIDE RECORDS SUMMARY | 2023-12-31 17:05 | XMS_ITS | Encounter Summary ---
[place] [address] Care Team Providers Care Vaccine Customer Representative Name Role Phone Jarad Keller DNP Primary Care Provider [phone] Encounter Details Date Type Department Care Team (Late st Contact Info) Description 06/08/2018 2:00 PM EST Office Visit [place] [address] Pre-transplant evaluation for kidney transplant Social History [...] this encounter Progress Notes * Tacos Gill, [facility] - 06/08/2018 2:00 PM EST Encounter Date: [...] prescription refills. However, when moving back to [place] from [place], he lost his insurance coverage. He has [...] prescribed and covered since his move to [place] from [place]. He is seeing endocrinology at [facility] in July, and he is hoping to [...] be reinstated soon. 3. The need for care home medication and potential adjustment of medications post-transplant [...] examination documented in this encounter Care Teams Vaccine Customer Representative Relationship Specialty Start Date End Date Jarad Keller DNP PCP - General Family Medicine 06/05/18 02/09/21 documented as of this encounter
--- OUTSIDE RECORDS SUMMARY | 2023-12-31 17:05 | XMS_ITS | Encounter Summary ---
[place] [address] Care Team Providers Care Assistant Plant Controller Name Role Phone Jarad Keller DNP Primary Care Provider [phone] Encounter Details Date Type Department Care Team (Late st Contact Info) Description 07/30/2019 12:30 AM EDT Ancillary Procedure [place] [address] Social History Tobacco Use Types Packs/Day Years [...] below. ? Electronically signed by: Huang Hernandez [facility] ([phone]), at 07/30/2019 1:42 AM Narrative 07/30/2019 1:42 AM EDT EXAMINATION: REQUEST FOR 2ND READ CT CHEST ABDOMEN PELVIS CLINICAL HISTORY: s/p fall; What Modality is the exam? CT Scan; Body Part (please add comments as necessary): chest abdomen pelvis; Sending Institution [facility]; Date of exam [id number]; I believe a [...] add comments as necessary): chest abdomen pelvis; [facility]; Date of exam [id number]; I believe a [...] number below. Electronically signed by: Huang Hernandez [facility]([phone]), at 07/30/2019 1:42 AM Kimani Kiser MD IMG OUTSIDE INTERPRE TATION ORDERABLES documented in this encounter Visit Diagnoses Not on filedocumented in this encounter Care Teams Assistant Plant Controller Relationship Specialty Start Date End Date Jarad Keller DNP PCP - General Family Medicine 06/05/18 02/09/21 documented as of this encounter
--- OUTSIDE RECORDS SUMMARY | 2023-12-31 17:05 | XMS_ITS | Encounter Summary ---
[place] [address] Care Team Providers Care Louver Mortiser Operator Name Role Phone Jarad Keller DANIKA Primary Care Provider [phone] Reason for Visit * Reason Onset Date Comments Appointment 07/18/2019 Encounter Details Date Type Department Care Team (Late st Contact Info) Description 07/18/2019 Telephone [place] [address] Harmeet Arvizu MD [facility] [place] [address] Appointment Social History Tobacco Use Types Packs/Day [...] on filedocumented in this encounter Care Teams Louver Mortiser Operator Relationship Specialty Start Date End Date Jarad Keller DNP PCP - General Family Medicine 06/05/18 02/09/21 documented as of this encounter
--- OUTSIDE RECORDS SUMMARY | 2023-12-31 17:05 | XMS_ITS | Encounter Summary ---
[place] [address] Care Team Providers Care Investigator Name Role Phone Jarad Keller DNP Primary Care Provider [phone] Encounter Details Date Type Department Care Team (Late Contact Info) Description 07/21/2018 Telephone [place] [address] Tamar Smith RN Social History Tobacco Use [...] filedocumented in this encounter Care Teams Investigator Relationship Specialty Start Date End Date Jarad Keller DNP PCP - General Family Medicine 06/05/18 02/09/21 documented as of this encounter
--- OUTSIDE RECORDS SUMMARY | 2023-12-31 17:05 | XMS_ITS | Encounter Summary ---
[place] [address] Care Team Providers Care Logistics System Engineer Name Role Phone Jarad Keller DNP Primary Care Provider [phone] Encounter Details Date Type Department Care Team (Late st Contact Info) Description 07/30/2019 12:25 AM EDT Ancillary Procedure [place] [address] Social History Tobacco Use Types Packs/Day Years [...] exclude potential malignancy. Alternatively, depending on the [id number], this can potentially be reevaluated on clinically-decided [...] necessary): Head and C spine; Sending Institution [facility]; Date of exam [id number]; I believe a [...] as necessary): [facility] C [facility] Date of exam [id number]; I believe a [...] exclude potential malignancy. Alternatively, depending on the [id number], this can potentially be reevaluated on clinically-decided [...] on filedocumented in this encounter Care Teams Logistics System Engineer Relationship Specialty Start Date End Date Jarad Keller DNP PCP - General Family Medicine 06/05/18 02/09/21 documented as of this encounter
--- OUTSIDE RECORDS SUMMARY | 2023-12-31 17:05 | XMS_ITS | Encounter Summary ---
Author Organization [facility] [place] [address] Care Team Providers Care Any Commodity Buyer Name Role Phone Jarad Keller DNP Primary Care Provider [phone] Reason for Visit * Reason Comments Cellulitis * Auth/Cert Specialty Diagnoses / Procedures Referred By Puneet t Referred To Contact Diagnoses Cellulitis Cellulitis of leg, left Referral ID Status Reason Start Date Expiration Date Visits Re quested Visits Authorized [id number] 1 1 Encounter Details Date Type Department Care Team (Latest Contact Info) Description 10/19/2018 2:44 PM EDT - 10/22/2018 2:26 PM EDT Hospital Encounter 1 [place] [address] Bessy [place] [address] [place] [address] Rylan [place] [address] Cellulitis of leg, left Discharge Disposition: Home [...] Sindi Rudolph Patient Age: 58 y.o. Language: Anguillan Race: White Ethnicity: Not nor Admit date: 10/19/2018 Discharge date and time: 10/22/18 Attending Physician: Rylan Stout MD Discharge Physician: Rylan Stout MD Follow-up Recommendations for Providers: - please follow-up for ongoing improvement of left foot/leg cellulitis Inpatient Provider Contact Information: For questions regarding this document or issues relating to this hospitalization on the Medical Service, please contact your inpatient physician through the [facility] . Issues afterhours and on weekends will [...] erythema, pain and fevers. He presented to [facility] where he was hospitalizedfor 3 days with [...] Center 10/23/2018 2:30 PM Ceasar Roy MD [facility] Your Inpatient Medical Team at [facility] Name(s) of your inpatient provider(s): Rylan Stout MD For questions regarding issues relating to your hospitalization on the Hospital Medicine Service, please contact your inpatient physician through the [facility] [phone]. Issues after hours and on weekends will be handled by the Hospitalist staff on-call. Your Primary Care Provider Jarad Sanjay Arianna, RAILROAD DINING CAR STEWARDESS [phone] General Instructions None Future Appointments and Orders Future Appointments and Orders Future Appointments Provider Department Dept Phone 10/23/2018 2:30 PM Ceasar Roy MD Endocrinology at [place] Arrive at: [facility] Area [phone] Discharge References/Attachments None documented in this encounter [...] 2:30 PM Ceasar Roy MD [facility] [place] [facility] Your Inpatient Medical Team at [facility] Name(s) of your inpatient provider(s): Rylan Stout MD For questions regarding issues relating to your hospitalization on the Hospital Medicine Service, please contact your inpatient physician through the [facility] [phone]. Issues after hours and on weekends will be handled by the Hospitalist staff on-call. Your Primary Care Provider Jarad Grace Arianna, RAILROAD DINING CAR STEWARDESS [phone] documented in this encounter Medications at Time [...] 10/22/2018 10:57 AM EDT Per 1E request GEOLOGY PROFESSOR supported pt w/ ride home at d/c due to financial need/friends not being able topick him up over weekend. Charge slip routed to [facility] Admin. Door to Door Transportation will pear picker pt at [facility] at 2PM 10/22 Office Of Care Management Float/Weekend Explosive Ordnance Disposal Technician GAURI Nice Pager [phone] * Rylan Stout MD - 10/22/2018 10:31 [...] spent >30 minutes (Day of Discharge Code 08417) involved in the final examination of the [...] Stout MD - 10/21/2018 3:47 PM EDT [facility] Medicine Inpatient Progress Note Interval History: - [...] contact the number below. Electronically signed by: Debra Jasmine [facility] ([phone]), at 10/20/2018 4:37 PM Microbiology: Microbiology Results (Last 30 days) No [...] Stout MD 10/21/2018 Hospital Medicine Team Pager [phone] * Era Anderson RN - 10/20/2018 4:14 [...] Burkett MD - 10/20/2018 11:47 AM EDT [facility] Medicine - [facility] [...] 10/20/2018 Internal Medicine Hospital Medicine Team Pager [phone] Associated attestation - Ahsan Guevara MD - [...] of two midnights or is on the [facility] inpatient only procedure list (status C) due [...] eyes ID: 58 y.o. Male presents to [facility] with left leg swelling. History of Present Illness: HPI 58 y/o male with pmhx ESRD on HD TTS, CAD s/p CABG 2014, IDDM, HTN, HPL who presents with left leg swelling. The patient reports being in his usual state of health until about 10 days ago when he began experiencing left lower extremity erythema, pain and fevers. He presented to [facility] where he was hospitalizedfor 3 days with [...] Bajwa MD at [facility] ??? PRO REMV CATARACT EXTRACAP,INSERT LENS,COMP [...] unit (V-GO 40) Device 40 Units by [facility].(Non-Drug; Combo Route) route daily. 30 Device 11 [...] file Gets together: Not on file Attends jain service: Not on file Active member of [...] He states that he was recentlydischarged from [facility] after 3 days of inpatient IV abx [...] diabetes, on insulin, hypertension, and [facility] with a left lower extremity cellulitis from [...] knee up into his thigh rapidly. His deburring and tooling machine operator ws concerned so recommended he come here [...] GOAL OUTCOME EVALUATION: * Consult Note - Mgaen Chaudhari MD - 10/21/2018 9:25 AM EDT [...] with plants/animals. Patient was apparently hospitalized at [facility] for 3 days and was treated with Vancomycin followed by Cefazolin. Patient was discharged on 10/13 to continue Cefazolin with every HD. Patient reports LLE erythema and pain worsened despite continued antibiotic treatment which prompted him to seek medical care at [facility]. On arrival patient was hemodynamically stable and [...] Bajwa MD at [facility] ??? PRO REMV CATARACT EXTRACAP,INSERT LENS,COMP [...] unit (V-GO 40) Device 40 Units by [facility] [place].(Non-Drug; Combo Route) route daily. 30 Device 11 [...] Secondary to diabetic nephropathy. Outpatient HD at [facility]. - Access: LUE AVF - HD today [...] Vision & Perception: ?? corrective lenses time signal wirer ?? Blind in R eye ?? Endurance: [...] Occupational Therapy: 28(1x schm 1x theract) Pager: [phone] JEOVANNY Peterson Occupational Therapy Rehabilitation Department * [...] EXTRACTION, EXTRACAPSULAR, W/ LENS INSERTION performed by Eramso Bajwa MD at [facility] ??? PRO REMV CATARACT EXTRACAP,INSERT LENS,COMP [...] wheelchair,neither pt nor drive. Pt uses a busEarDish for transportation.Pt currently using cane d/t LLE [...] outlinedin this evaluation. Time IN / OUT: 9912-9174 Total Evaluation Minutes, Physical Therapy: 23(PT eval and gait training with RW) Ira Lizarraga, PT Pager: [phone] Physical Therapy Inpatient Rehabilitation Department * Plan [...] Bajwa MD at [facility] ??? PRO REMV CATARACT EXTRACAP,INSERT LENS,COMP [...] Vision & Perception: ?? corrective lenses time signal wirer ?? Blind in R eye Communication: WFL [...] for a sock aid. Pt uses a forming operator at baseline to doff socks. Functional Mobility: [...] of daily living. Equipment needs at discharge: forming operator, sock aid Other Recommendations: ?? Utilize upright [...] and measurable assessment of functional outcome. Pager: [phone] Laureen Pantoja OT 10/20/2018 Occupational Therapy Rehabilitation [...] encounter: 105 kg (231 lb 7.7 oz). Dixie Body Weight (IBW): Dixie body weight: 59.2 kg (130 lb 8.2 oz) Adjusted ideal body weight: 77.5 kg (170 lb 14.4 oz) UBW: patient reports that his weight has increased a little bit since he moved to [place]; he states gradual increase in his dry [...] while inpatient THANKS MARÍA Limon Beeper #: [phone] * Plan of Care - Cari Anderson, [...] reinforcement provided;verbalization of feelings encouraged Diversional Activities smartphone;Powered Family/Support System Care self-care encouraged Trust Relationship/Rapport [...] Glucose, POC 115 65 - 199 mg/dL [facility] Comment: Supplemental ranges: <140 mg/dL before meals <180 mg/dL all other times of the day Blood specimen (specimen) 10/22/2018 11:22 AM EDT 10/22/2018 11:22 AM EDT Rylan Stout MD POINT OF CARE TEST O RDERABLES [facility] [place] [address] * (ABNORMAL) PTH (10/22/2018 9:44 AM EDT) Parathyroid Hormone 131(H) 15 - 65 pg/mL [facility] Blood specimen (specimen) 10/22/2018 9:44 AM EDT 10/22/2018 10:21 AM EDT Narrative Resulting Agency Comment Spec In Lab Alan Condon MD CHEMISTRY ORDERABLES Performing Organization Address [facility] Co de Phone Number [facility] [place] [place] [address] * POCT Glucose (10/22/2018 7:22 AM EDT) Glucose, POC 132 65 - 199 mg/dL [facility] Comment: Supplemental ranges: <140 mg/dL before meals <180 mg/dL all other times of the day Blood specimen (specimen) 10/22/2018 7:22 AM EDT 10/22/2018 7:22 AM EDT Rylan Stout MD POINT OF CARE TEST O RDERABLES Performing Organization Address [facility] Co de Phone Number [facility] [place] [address] * POCT Glucose (10/22/2018 3:44 AM EDT) Glucose, POC 136 65 - 199 mg/dL [facility] Comment: Supplemental ranges: <140 mg/dL before meals <180 mg/dL all other times of the day Blood specimen (specimen) 10/22/2018 3:44 AM EDT 10/22/2018 3:44 AM EDT Rylan Stout MD POINT OF CARE TEST O RDERAROSIE Performing Organization Address [facility] Co de Phone Number [facility] [place] [address] * POCT Glucose (10/21/2018 11:42 PM EDT) Glucose, POC 126 65 - 199 mg/dL [facility] Comment: Supplemental ranges: <140 mg/dL before meals <180 mg/dL all other times of the day Blood specimen (specimen) 10/21/2018 11:42 PM EDT 10/21/2018 11:42 PM EDT Rylan Stout MD POINT OF CARE TEST O ANTONETTE Performing Organization Address [facility] Co de Phone Number [facility] [place] [address] * (ABNORMAL) POCT Glucose (10/21/2018 8:13 PM EDT) Glucose, POC 233(H) 65 - 199 mg/dL [facility] Comment: Supplemental ranges: <140 mg/dL before meals <180 mg/dL all other times of the day Blood specimen (specimen) 10/21/2018 8:13 PM EDT 10/21/2018 8:13 PM EDT Rylan Stout MD POINT OF CARE TEST Collette WHITMAN Performing Organization Address [facility] Co de Phone Number [facility] [place] [address] * POCT Glucose (10/21/2018 3:17 PM EDT) Glucose, POC 113 65 - 199 mg/dL [facility] Comment: Supplemental ranges: <140 mg/dL before meals <180 mg/dL all other times of the day Blood specimen (specimen) 10/21/2018 3:17 PM EDT 10/21/2018 3:17 PM EDT Rylan Stout MD POINT OF CARE TEST O ANTONETTE Performing Organization Address [facility] Co de Phone Number [facility] [place] [address] * (ABNORMAL) POCT Glucose (10/21/2018 11:16 AM EDT) Glucose, POC 201(H) 65 - 199 mg/dL [facility] Comment: Supplemental ranges: <140 mg/dL before meals <180 mg/dL all other times of the day Blood specimen (specimen) 10/21/2018 11:16 AM EDT 10/21/2018 11:16 AM EDT Rylan Stout MD POINT OF CARE TEST Collette WHITMAN Performing Organization Address [facility] Co de Phone Number [facility] [place] [address] * Hepatitis B Surface Antigen (10/21/2018 8:56 AM EDT) Hepatitis B Surface Antigen Negative Negative [facility] Blood specimen (specimen) 10/21/2018 8:56 AM EDT 10/21/2018 9:39 AM EDT Narrative Resulting Agency Comment Spec In Lab Alan Condon MD CHEMISTRY ORDERABLES Performing Organization Address [facility] de Phone Number [facility] [place] [address] * POCT Glucose (10/21/2018 6:53 AM EDT) [facility] Glucose, POC 113 65 - 199 mg/dL [facility] Comment: Supplemental ranges: <140 mg/dL before meals <180 mg/dL all other times of the day Blood specimen (specimen) 10/21/2018 6:53 AM EDT 10/21/2018 6:53 AM EDT Ahsan Guevara MD POINT OF CARE TEST Collette WHITMAN Performing Organization Address [facility] de Phone Number [facility] [place] [address] * (ABNORMAL) Phosphorus (10/21/2018 6:42 AM EDT) Phosphorus 5.8(H) 2.5 - 4.5 mg/dL [facility] Blood specimen (specimen) Venous Draw / Unknown 10/21/2018 6:42 AM EDT 10/21/2018 8:42 AM EDT Narrative Resulting Agency Comment Spec In Lab Magen Chaudhari MD CHEMISTRY ORDERA BLES Performing Organization Address City/[facility]/ZIP Co de Phone Number [facility] [place] [place] [address] * (ABNORMAL) Differential, Automated (10/21/2018 6:42 AM EDT) Neutrophil % 73.9 % [facility] Neutrophil Absolute 5.34 1.70 - 6.10 x10(3)/mc L [facility] Lymph % 14.2 % [facility] Lymphocytes Abs 1.0 0.9 - 3.2 x10(3)/mc L [facility] Monocyte % 7.9 % [facility] Monocyte Abs 0.6 0.3 - 0.9 x10(3)/mc L [facility] Eos % 1.9 % [facility] Eosinophils Abs 0.1 0.0 - 0.4 x10(3)/mc L [facility] Basophil % 0.6 % [facility] Baso Absolute 0.0 0.0 - 0.1 x10(3)/mc L [facility] Immature Gran % 1.50 % [facility] Comment: Immature granulocytes(IG's)percentage and absolute count will include metamyelocytes, myelocytes, and promyelocytes. Blood smears from CBCs yielding IG's will be scanned manually for concordance. If this scan disagrees with the automated IG or if promyelocytes are noted, a manual differential will be performed. Immature Gran Absolute 0.11(H) 0.00 - 0.04 x10(3)/mc L [facility] Blood specimen (specimen) 10/21/2018 6:42 AM EDT 10/21/2018 6:51 AM EDT Narrative Resulting Agency Comment Spec In Lab Cari Burkett MD HEMATOLOGY ORDERABLE S Performing Organization Address [facility]/ZIP Co de Phone Number [facility] [place] [address] * (ABNORMAL) Hemogram (10/21/2018 6:42 AM EDT) [facility] White Blood Cell 7.2 4.0 - 9.5 x10(3)/ L [facility] Red Blood Cell 3.10(L) 4.58 - 5.54 x10(6)/mc L [facility] Hemoglobin 9.8(L) 13.7 - 16.5 gm/dL [facility] Hematocrit 29.9(L) 40.5 - 48.5 % [facility] Mean Cell Volume 96.5(H) 82.9 - 93.1 [facility] Mean Cell Hemoglobin 31.6 27.5 - 32.1 pg [facility] Mean Cell Hemoglobin Concentration 32.8 32.0 - 35.7 gm/dL [facility] Platelet 253 145 - 357 x10(3)/[facility] RDW Standard Deviation 47.8(H) 36.0 - 45.0 [facility] RDW coefficient of variation 13.6 11.4 - 13.8 % [facility] Mean Platelet Volume 8.9 7.6 - 12.9 [facility] NRBC% auto 0.0 % [facility] NRBC Absolute 0.000 0.000 - 0.000 x10(3)/[facility] Blood specimen (specimen) 10/21/2018 6:42 AM EDT 10/21/2018 6:51 AM EDT Narrative Resulting Agency Comment Spec In Lab Cari Burkett MD HEMATOLOGY ORDERABLE S [facility] [place] [place] [address] * (ABNORMAL) Basic Metabolic Panel (non-fasting) (10/21/2018 6:42 AM EDT) [facility] Glucose 122 65 - 199 mg/dL [facility] Comment:Diabetes: >=200 mg/d L plus symptoms Blood Urea Nitrogen 39(H) 10 - 20 mg/dL [facility] Creatinine 4.50(H) 0.80 - 1.50 mg/dL [facility] Sodium 133(L) 135 - 145 mmol/L [facility] Potassium 4.3 3.5 - 5.0 mmol/L [facility] Comment: Please note: ??Patients with WBC >100,000 may have falsely elevated Potassium levels. ??For accurate Potassium quantification in these patients send serum separator tube (gold top) for subsequent determinations. ??Contact the Clinical Chemistry Laboratory if there are any questions. Chloride 91(L) 98 - 107 mmol/L [facility] Carbon Dioxide 31 22 - 31 mmol/L [facility] Anion Gap 11 5 - 15 mmol/L [facility] Calcium 8.5 8.5 - 10.5 mg/dL [facility] Est Glomerular Filtration Rate 13(L) >=60 mL/min/1. 73 m?? [facility] Comment: The eGFR was calculated using the CKD-EPI equation. As with all creatinine based estimates of kidney function, eGFR values calculated with the CKD-EPI equation are not accurate in patients with acute kidney failure, extremes of body mass or the acutely ill. http://[employer]/DHnkf eGFR 15(L) >=60 mL/min/1. 73 m?? [facility] Comment: The eGFR was calculated using the CKD-EPI equation. As with all creatinine based estimates of kidney function, eGFR values calculated with the CKD-EPI equation are not accurate in patients with acute kidney failure, extremes of body mass or the acutely ill. http://[employer]/DHMCnkf Blood specimen (specimen) 10/21/2018 6:42 AM EDT 10/21/2018 6:51 AM EDT Narrative Resulting Agency Comment Spec In Lab Ahsan Guevara MD CHEMISTRY ORDERABLES [facility] [place] [address] * POCT Glucose (10/21/2018 4:15 AM EDT) Glucose, POC 115 65 - 199 mg/dL [facility] Comment: Supplemental ranges: <140 mg/dL before meals <180 mg/dL all other times of the day Blood specimen (specimen) 10/21/2018 4:15 AM EDT 10/21/2018 4:15 AM EDT Ahsna Guevara MD POINT OF CARE TEST O RDERAROSIE [facility] [place] [address] * POCT Glucose (10/20/2018 11:31 PM EDT) Glucose, POC 88 65 - 199 mg/dL [facility] Comment: Supplemental ranges: <140 mg/dL before meals <180 mg/dL all other times of the day Blood specimen (specimen) 10/20/2018 11:31 PM EDT 10/20/2018 11:31 PM EDT Ahsan Guevara MD POINT OF CARE TEST O FREDERICKERAROSIE [facility] [place] [address] * POCT Glucose (10/20/2018 7:53 PM EDT) Glucose, POC 170 65 - 199 mg/dL [facility] Comment: Supplemental ranges: <140 mg/dL before meals <180 mg/dL all other times of the day Blood specimen (specimen) 10/20/2018 7:53 PM EDT 10/20/2018 7:53 PM EDT Ahsan Guevara MD POINT OF CARE TEST O RDERAROSIE [facility] [place] [address] * (ABNORMAL) Differential, Automated (10/20/2018 7:12 PM EDT) Neutrophil % 73.3 % [facility] Neutrophil Absolute 4.76 1.70 - 6.10 x10(3)/mc L [facility] Lymph % 13.9 % [facility] Lymphocytes Abs 0.9 0.9 - 3.2 x10(3)/ L [facility] Monocyte % 8.0 % [facility] Monocyte Abs 0.5 0.3 - 0.9 x10(3)/[facility] Eos % 2.6 % [facility] Eosinophils Abs 0.2 0.0 - 0.4 x10(3)/[facility] Basophil % 0.8 % [facility] Baso Absolute 0.0 0.0 - 0.1 x10(3)/[facility] Immature Gran % 1.40 % [facility] Comment: Immature granulocytes(IG's)percentage and absolute count will include metamyelocytes, myelocytes, and promyelocytes. Blood smears from CBCs yielding IG's will be scanned manually for concordance. If this scan disagrees with the automated IG or if promyelocytes are noted, a manual differential will be performed. Immature Gran Absolute 0.09(H) 0.00 - 0.04 x10(3)/ L [facility] Blood specimen (specimen) 10/20/2018 7:12 PM EDT 10/20/2018 7:40 PM EDT Narrative Resulting Agency Comment Spec In Lab Cari Burkett MD HEMATOLOGY ORDERABLE S [facility] [place] [place] [address] * (ABNORMAL) Hemogram (10/20/2018 7:12 PM EDT) White Blood Cell 6.5 4.0 - 9.5 x10(3)/mc L [facility] Red Blood Cell 3.15(L) 4.58 - 5.54 x10(6)/[facility] Hemoglobin 9.8(L) 13.7 - 16.5 gm/dL [facility] Hematocrit 31.0(L) 40.5 - 48.5 % [facility] Mean Cell Volume 98.4(H) 82.9 - 93.1 [facility] Mean Cell Hemoglobin 31.1 27.5 - 32.1 pg [facility] Mean Cell Hemoglobin Concentration 31.6(L) 32.0 - 35.7 gm/dL [facility] Platelet 259 145 - 357 x10(3)/[facility] RDW Standard Deviation 48.1(H) 36.0 - 45.0 [facility] RDW coefficient of variation 13.4 11.4 - 13.8 % [facility] Mean Platelet Volume 9.2 7.6 - 12.9 [facility] NRBC% auto 0.0 % [facility] NRBC Absolute 0.000 0.000 - 0.000 x10(3)/[facility] Blood specimen (specimen) 10/20/2018 7:12 PM EDT 10/20/2018 7:40 PM EDT Narrative Resulting Agency Comment Spec In Lab Cari Burkett MD HEMATOLOGY ORDERABLE S [facility] [place] [place] [address] * (ABNORMAL) Basic Metabolic Panel (non-fasting) (10/20/2018 7:12 PM EDT) Glucose 196 65 - 199 mg/dL [facility] Comment:Diabetes: >=200 mg/d L plus symptoms Blood Urea Nitrogen 35(H) 10 - 20 mg/dL [facility] Comment:result rechecked-RG Creatinine 3.81(H) 0.80 - 1.50 mg/dL [facility] Comment:result rechecked-RG Sodium 132(L) 135 - 145 mmol/L [facility] Potassium 4.4 3.5 - 5.0 mmol/L [facility] Comment: Please note: ??Patients with WBC >100,000 may have falsely elevated Potassium levels. ??For accurate Potassium quantification in these patients send serum separator tube (gold top) for subsequent determinations. ??Contact the Clinical Chemistry Laboratory if there are any questions. Chloride 89(L) 98 - 107 mmol/L [facility] Carbon Dioxide 32(H) 22 - 31 mmol/L [facility] Anion Gap 11 5 - 15 mmol/L [facility] Calcium 8.6 8.5 - 10.5 mg/dL [facility] Est Glomerular Filtration Rate 16(L) >=60 mL/min/1. 73 m?? [facility] Comment: The eGFR was calculated using the CKD-EPI equation. As with all creatinine based estimates of kidney function, eGFR values calculated with the CKD-EPI equation are not accurate in patients with acute kidney failure, extremes of body mass or the acutely ill. http://[employer]/DHnkf eGFR 19(L) >=60 mL/min/1. 73 m?? [facility] Comment: The eGFR was calculated using the CKD-EPI equation. As with all creatinine based estimates of kidney function, eGFR values calculated with the CKD-EPI equation are not accurate in patients with acute kidney failure, extremes of body mass or the acutely ill. http://[email or web address]/DHMCnkf Blood specimen (specimen) 10/20/2018 7:12 PM EDT 10/20/2018 7:40 PM EDT Narrative Resulting Agency Comment Spec In Lab Ahsan Guevara MD CHEMISTRY ORDERABLES [facility] [place] [address] * POCT Glucose (10/20/2018 4:16 PM EDT) Glucose, POC 152 65 - 199 mg/dL [facility] Comment: Supplemental ranges: <140 mg/dL before meals <180 mg/dL all other times of the day Blood specimen (specimen) 10/20/2018 4:16 PM EDT 10/20/2018 4:16 PM EDT Ahsan Guevara MD POINT OF CARE TEST O ANTONETTE [facility] [place] [address] * CT Lower Extremity w Contrast Left [...] the number below. ? Electronically signed by: Debra Jasmine [facility] ([phone]), at 10/20/2018 4:37 PM Narrative 10/20/2018 4:37 PM EDT EXAMINATION: CT [...] Glucose, POC 237(H) 65 - 199 mg/dL [facility] Comment: Supplemental ranges: <140 mg/dL before meals <180 mg/dL all other times of the day Blood specimen (specimen) 10/20/2018 11:37 AM EDT 10/20/2018 11:37 AM EDT Ahsan Guevara MD POINT OF CARE TEST O RDERABLES Performing Organization Address [facility]/ZIP Co de Phone Number [facility] [place] [address] * (ABNORMAL) POCT Glucose (10/20/2018 9:14 AM EDT) Glucose, POC 236(H) 65 - 199 mg/dL [facility] Comment: Supplemental ranges: <140 mg/dL before meals <180 mg/dL all other times of the day Blood specimen (specimen) 10/20/2018 9:14 AM EDT 10/20/2018 9:14 AM EDT Bessy Anaya MD POINT OF CARE TE ST ORDERABLES Performing Organization Address City/[facility]/ZIP Co de Phone Number [facility] [place] [address] * POCT Glucose (10/20/2018 6:54 AM EDT) Glucose, POC 175 65 - 199 mg/dL [facility] Comment: Supplemental ranges: <140 mg/dL before meals <180 mg/dL all other times of the day Blood specimen (specimen) 10/20/2018 6:54 AM EDT 10/20/2018 6:54 AM EDT Bessy Anaya MD POINT OF CARE TE ST ORDERABLES Performing Organization Address City/[facility]/ZIP Co de Phone Number [facility] [place] [address] * POCT Glucose (10/20/2018 3:26 AM EDT) Glucose, POC 195 65 - 199 mg/dL [facility] Comment: Supplemental ranges: <140 mg/dL before meals <180 mg/dL all other times of the day Blood specimen (specimen) 10/20/2018 3:26 AM EDT 10/20/2018 3:26 AM EDT Bessy Anaya MD POINT OF CARE TE ST ORDERABLES Performing Organization Address [facility] Co de Phone Number [facility] [place] [address] * (ABNORMAL) POCT Glucose (10/19/2018 11:42 PM EDT) Glucose, POC 217(H) 65 - 199 mg/dL [facility] Comment: Supplemental ranges: <140 mg/dL before meals <180 mg/dL all other times of the day Blood specimen (specimen) 10/19/2018 11:42 PM EDT 10/19/2018 11:42 PM EDT Bessy Anaya MD POINT OF CARE TE ST ORDERABLES Performing Organization Address City/[facility] Co de Phone Number [facility] [place] [address] * (ABNORMAL) POCT Glucose (10/19/2018 9:38 PM EDT) Glucose, POC 241(H) 65 - 199 mg/dL [facility] Comment: Supplemental ranges: <140 mg/dL before meals <180 mg/dL all other times of the day Blood specimen (specimen) 10/19/2018 9:38 PM EDT 10/19/2018 9:38 PM EDT Bessy Anaya MD POINT OF CARE TE ST ORDERABLES Performing Organization Address [facility] Co de Phone Number [facility] [place] [address] * POCT Glucose (10/19/2018 8:21 PM EDT) Glucose, POC 181 65 - 199 mg/dL [facility] Comment: Supplemental ranges: <140 mg/dL before meals <180 mg/dL all other times of the day Blood specimen (specimen) 10/19/2018 8:21 PM EDT 10/19/2018 8:21 PM EDT Bessy Anaya MD POINT OF CARE TE ST ORDERABLES Performing Organization Address [facility] de Phone Number [facility] [place] [address] * POCT Glucose (10/19/2018 6:40 PM EDT) Glucose, POC 165 65 - 199 mg/dL [facility] Comment: Supplemental ranges: <140 mg/dL before meals <180 mg/dL all other times of the day Blood specimen (specimen) 10/19/2018 6:40 PM EDT 10/19/2018 6:[address] Evgeny Paez MD POINT OF CARE TEST O RDERABLES Performing Organization Address [facility] Co de Phone Number [facility] [place] [address] * EKG 12 Lead (10/19/2018 5:02 PM EDT) Ventricular rate 97 BPM MUSE SYSTEM Atrial Rate 97 BPM MUSE SYSTEM P-R Interval 184 ms MUSE SYSTEM QRS Duration 92 ms MUSE SYSTEM Q-T Interval 370 ms MUSE SYSTEM QTC Calculated (Bezet) 469 ms MUSE SYSTEM Calculated P [place] 61 degrees MUSE SYSTEM Calculated R [place] 50 degrees MUSE SYSTEM Calculated T [place] 73 degrees MUSE SYSTEM INTERPRETATION Sinus rhythm [...] Text Report Department: Vascular Surgery Lab Patient: [id number] (SINDI RUDOLPH) CPT: 35908 ICD10: M79.605;R60.0;L03. 116 Referring Physician: SINAN PATEL [...] L-Lactate2 Whole Blood (10/19/2018 3:23 PM EDT) [facility] Lactate WB 1.6 0.5 - 2.2 mmol/L [facility] Blood specimen (specimen) 10/19/2018 3:23 PM EDT 10/19/2018 3:[address] Evgeny Paez MD CHEMISTRY ORDERABLES Performing Organization Address City/[facility]/ZIP Co de Phone Number [facility] [place] [address] * (ABNORMAL) Hepatic Function Panel (10/19/2018 3:20 PM EDT) [facility] Protein, Total 8.5(H) 6.1 - 8.0 gm/dL [facility] Albumin 4.1 3.2 - 5.2 gm/dL [facility] Aspartate Aminotransferase 69(H) 0 - 39 unit/L [facility] Alanine Aminotransferase 33 0 - 55 unit/L [facility] Alkaline Phosphatase 164(H) 40 - 120 unit/L [facility] Bilirubin, Total Not Perf 0.2 - 1.3 mg/dL [facility] Comment:Analyte stability ex ceeded; test not performed. Bilirubin, Direct Not Perf 0.0 - 0.3 mg/dL [facility] Comment:Analyte stability ex ceeded; test not performed. Blood specimen (specimen) Venous Draw / Unknown 10/19/2018 3:20 PM EDT 10/19/2018 4:29 PM EDT Narrative Resulting Agency Comment Spec In Lab Cari Burkett MD CHEMISTRY ORDERABLES Performing Organization Address [facility] Co de Phone Number [facility] [place] [address] * Blue Tube HOLD (10/19/2018 3:20 PM EDT) [facility] Blue Hold Sample in lab. [facility] Blood specimen (specimen) Venous Draw / Unknown 10/19/2018 3:20 PM EDT 10/19/2018 3:33 PM EDT Ahsan EDGAR HEMATOLOGY ORDERABLE S [facility] [place] [place] [address] * (ABNORMAL) Differential, Automated (10/19/2018 3:20 PM EDT) Neutrophil % 71.8 % [facility] Neutrophil Absolute 4.78 1.70 - 6.10 x10(3)/[facility] Lymph % 13.1 % [facility] Lymphocytes Abs 0.9 0.9 - 3.2 x10(3)/[facility] Monocyte % 7.5 % [facility] Monocyte Abs 0.5 0.3 - 0.9 x10(3)/[facility] Eos % 3.0 % [facility] Eosinophils Abs 0.2 0.0 - 0.4 x10(3)/[facility] Basophil % 0.8 % [facility] Baso Absolute 0.0 0.0 - 0.1 x10(3)/[facility] Immature Gran % 3.80 % [facility] Comment: Immature granulocytes(IG's)percentage and absolute count will include metamyelocytes, myelocytes, and promyelocytes. Blood smears from CBCs yielding IG's will be scanned manually for concordance. If this scan disagrees with the automated IG or if promyelocytes are noted, a manual differential will be performed. Immature Gran Absolute 0.25(H) 0.00 - 0.04 x10(3)/ L [facility] Blood specimen (specimen) 10/19/2018 3:20 PM EDT 10/19/2018 3:32 PM EDT Narrative Resulting Agency Comment Spec In Lab Ahsan EDGAR HEMATOLOGY ORDERABLE S Performing Organization Address City/[facility]/ZIP Co de Phone Number [facility] [place] [address] * (ABNORMAL) Hemogram (10/19/2018 3:20 PM EDT) White Blood Cell 6.6 4.0 - 9.5 x10(3)/mc L [facility] Red Blood Cell 3.50(L) 4.58 - 5.54 x10(6)/mc L [facility] Hemoglobin 11.1(L) 13.7 - 16.5 gm/dL [facility] Hematocrit 34.3(L) 40.5 - 48.5 % [facility] Mean Cell Volume 98.0(H) 82.9 - 93.1 fL [facility] Mean Cell Hemoglobin 31.7 27.5 - 32.1 pg [facility] Mean Cell Hemoglobin Concentration 32.4 32.0 - 35.7 gm/dL [facility] Platelet 277 145 - 357 x10(3)/mc L [facility] RDW Standard Deviation 50.4(H) 36.0 - 45.0 fL [facility] RDW coefficient of variation 14.1(H) 11.4 - 13.8 % [facility] Mean Platelet Volume 9.3 7.6 - 12.9 fL [facility] NRBC% auto 0.0 % [facility] NRBC Absolute 0.000 0.000 - 0.000 x10(3)/mc L [facility] Blood specimen (specimen) 10/19/2018 3:20 PM EDT 10/19/2018 3:32 PM EDT Narrative Resulting Agency Comment Spec In Lab Ahsan EDGAR HEMATOLOGY ORDERABLE S [facility] [place] [address] * (ABNORMAL) Basic Metabolic Panel (non-fasting) (10/19/2018 3:20 PM EDT) Glucose 216(H) 65 - 199 mg/dL [facility] Comment:Diabetes: >=200 mg/d L plus symptoms Blood Urea Nitrogen 17 10 - 20 mg/dL [facility] Creatinine 2.78(H) 0.80 - 1.50 mg/dL [facility] Sodium 139 135 - 145 mmol/L [facility] Potassium 3.6 3.5 - 5.0 mmol/L [facility] Comment: Please note: ??Patients with WBC >100,000 may have falsely elevated Potassium levels. ??For accurate Potassium quantification in these patients send serum separator tube (gold top) for subsequent determinations. ??Contact the Clinical Chemistry Laboratory if there are any questions. Chloride 91(L) 98 - 107 mmol/L [facility] Carbon Dioxide 36(H) 22 - 31 mmol/L [facility] Anion Gap 12 5 - 15 mmol/L [facility] Calcium 9.4 8.5 - 10.5 mg/dL [facility] Est Glomerular Filtration Rate 24(L) >=60 mL/min/1. 73 m?? [facility] Comment: The eGFR was calculated using the CKD-EPI equation. As with all creatinine based estimates of kidney function, eGFR values calculated with the CKD-EPI equation are not accurate in patients with acute kidney failure, extremes of body mass or the acutely ill. http://[employer]/[facility] – TISHOMINGOnkf eGFR 28(L) >=60 mL/min/1. 73 m?? [facility] Comment: The eGFR was calculated using the CKD-EPI equation. As with all creatinine based estimates of kidney function, eGFR values calculated with the CKD-EPI equation are not accurate in patients with acute kidney failure, extremes of body mass or the acutely ill. http://[email or web address]/DHMCnkf Blood specimen (specimen) 10/19/2018 3:20 PM EDT 10/19/2018 3:32 PM EDT Narrative Resulting Agency Comment Spec In Lab Sinan Patel MD CHEMISTRY ORDERABLES [facility] [address] [place] [address] documented in this encounter Visit Diagnoses Diagnosis [...] Davila RN) 825 (Given - Provider: Chantale Cazares RN)2055 (Given [...] Provider: Chantale Cazares RN)2011 (Given - Provider: Julianan Davila RN)2340 (Not Given - Provider: Julianna [...] Intramuscular, EVERY 1 HOUR PRN, Starting on [facility] 10/19/18 at 2008, Until [place] 10/22/18 at 1626, Low blood sugar, For [...] Buccal, EVERY 30 MIN PRN, Starting on [facility] 10/19/18 at 2008, Until [place] 10/22/18 at 1626, Low blood sugar, For [...] Intravenous, EVERY 1 HOUR PRN, Starting on [facility] 10/19/18 at 2008, Until [place] 10/22/18 at 1626, Low blood sugar, For [...] Routine documented in this encounter Care Teams Any Commodity Buyer Relationship Specialty Start Date End Date Jarad Keller DNP PCP - General Family Medicine 06/05/18 02/09/21 documented as of this encounter
--- OUTSIDE RECORDS SUMMARY | 2023-12-31 17:05 | XMS_ITS | Encounter Summary ---
[place] [address] Care Team Providers Care Machine I Coremaker Name Role Phone Jarad Keller DNP Primary Care Provider [phone] Encounter Details Date Type Department Care Team (Late st Contact Info) Description 07/29/2019 10:15 PM EDT Ancillary Procedure [place] [address] Social History Tobacco Use Types Packs/Day Years [...] Dover MD IMG FILM LIBRARY ORD ERABLES [place], [place] documented in this encounter Visit Diagnoses Not on filedocumented in this encounter Care Teams Machine I Coremaker Relationship Specialty Start Date End Date Jarad Keller DNP PCP - General Family Medicine 06/05/18 02/09/21 documented as of this encounter
--- OUTSIDE RECORDS SUMMARY | 2023-12-31 17:05 | XMS_ITS | Encounter Summary ---
[place] [address] Care Team Providers Care Inverform Machine Operator Name Role Phone Jarad Keller DNP Primary Care Provider [phone] Encounter Details Date Type Department Care Team (Late st Contact Info) Description 07/29/2019 10:20 PM EDT Ancillary Procedure [place] [address] Social History Tobacco Use Types Packs/Day Years [...] Dover MD IMG FILM LIBRARY ORD ERABLES [place], [place] documented in this encounter Visit Diagnoses Not on filedocumented in this encounter Care Teams Inverform Machine Operator Relationship Specialty Start Date End Date Jarad Keller DNP PCP - General Family Medicine 06/05/18 02/09/21 documented as of this encounter
--- OUTSIDE RECORDS SUMMARY | 2023-12-31 17:05 | XMS_ITS | Encounter Summary ---
[place] [address] Care Team Providers Care Field Service Poultry Technician Name Role Phone Jarad Keller DNP Primary Care Provider [phone] Encounter Details Date Type Department Care Team (Late st Contact Info) Description 06/08/2018 12:00 PM EST Office Visit [place] [address] Organ transplant candidate Social History Tobacco Use [...] Hernández - 06/08/2018 12:00 PM EST Transplant Sports Writer Note: Met with patient during the Kidney Class appointment to review medical and pharmacy benefits for transplant services. He is covered by Medicare A, B, and D ([facility]). He does not have a secondary [...] None ( Medicaid applied for) Pharmacy Carrier: [employer] (level 1 LIS extra help copays $3.60 [...] status documented in this encounter Care Teams Field Service Poultry Technician Relationship Specialty Start Date End Date Jarad Keller DNP PCP - General Family Medicine 06/05/18 02/09/21 documented as of this encounter
--- OUTSIDE RECORDS SUMMARY | 2023-12-31 17:05 | XMS_ITS | Encounter Summary ---
[place] [address] Care Team Providers Care Research Assistant Member Name Role Phone Jarad Keller DNP Primary Care Provider [phone] Encounter Details Date Type Department Care Team (Late st Contact Info) Description 06/27/2018 Telephone [place] [id number] Tamar Smith RN Social History Tobacco Use [...] Miscellaneous Notes * Telephone Encounter - Tamar Baliey RN - 06/27/2018 2:03 PM EST 2nd VM left for Maurice. Need to discuss what was done/ not done at [facility]. Requested some records from them as not [...] on filedocumented in this encounter Care Teams Research Assistant Member Relationship Specialty Start Date End Date Jarad Keller DNP PCP - General Family Medicine 06/05/18 02/09/21 documented as of this encounter
--- OUTSIDE RECORDS SUMMARY | 2023-12-31 17:05 | XMS_ITS | Encounter Summary ---
Author Organization [facility] [place] [address] Care Team Providers Care Poultry Helper Name Role Phone Jarad Keller DNP Primary Care Provider [phone] Encounter Details Date Type Department Care Team (Late st Contact Info) Description 06/08/2018 11:30 AM EST Office Visit [place] [address] Derrick Watts MD [facility] [place] [address] Pre-transplant evaluation for kidney transplant; Stage 5 [...] Present Illness: Mr. Maurice Rudolph is an 58 y.o. White Not [...] the patient received their treatment from is: [place], [place] ? 2016 Previously lwait listed at [facility] Reason for referral: Evaluation for Kidney [...] months ago stress test at [facility] Seborrhea Edentulous Balance problems uses cane Morbid obesity BMI near 38 Past Surgical History: Procedure Laterality Date ??? CATARACT EXTRACTION, EXTRACAPSULAR, W/ LENS INSERTION 11/29/12 OS - DMM ??? CATARACT REMOVAL 07/18/12 OD [facility] ??? PERIPHERAL IRIDOTOMY 04/06/2012 OD [facility] ??? PRO REMV CATARACT EXTRACAP,INSERT LENS 11/29/2012 CATARACT EXTRACTION, EXTRACAPSULAR, W/ LENS INSERTION performed by Erasmo Bajwa MD at [facility] OSC ??? PRO REMV CATARACT EXTRACAP,INSERT LENS,COMP 07/18/2012 ? ? PRO REPAIR COMPLEX RETINA DETACH VITRECTOMY & MEMB PEEL 04/03/2012, 04/03/12 REPAIR COMPLEX RETINAL DETACHMENT, W/ VITRECTOMY, MEMBRANE PEELING performed by Matteo Diane MD at [facility] MAIN OR ? ? PRO REPAIR COMPLEX RETINA DETACH VITRECTOMY & MEMB PEEL 07/31/2012 REPAIR COMPLEX RETINAL DETACHMENT, W/ VITRECTOMY, MEMBRANE PEELING performed by Matteo Diane MD at [facility] MAIN OR ? ? PRO REPAIR COMPLEX RETINA DETACH VITRECTOMY & MEMB PEEL 01/08/2013 REPAIR COMPLEX RETINAL DETACHMENT, W/ VITRECTOMY, MEMBRANE PEELING performed by Matteo Diane MD at [facility] MAIN OR ??? PRO TX [...] Hx ??? 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 Neurological: No asymmetries, DTRs or scientific software developer Skin: no active lesions Assessment: Mr. Maurice [...] 90 Minutes in direct face to face commercial counsel. DERRICK WATTS MD documented in this [...] for kidney transplant HIV SCREEN, 4TH GENERATION ([facility]/CGP/APD/NLH) Routine 06/08/2018 3:29 PM EST Pre-transplant evaluation [...] evaluation for kidney transplant TYPE AND SCREEN ([facility]/CGP/GAMALIEL) Routine 06/08/2018 3:29 PM EST Pre-transplant evaluation [...] 3:29 PM EST) Ab Screen Interp Negative [facility] Expires at [id number] on: 06/11/2018 [facility] Blood specimen (specimen) 06/08/2018 3:29 PM EST 06/08/2018 3:37 PM EST Narrative Resulting Agency Comment Spec In Lab Derrick Watts MD BLOOD BANK LAB OR DERABLES Performing Organization Address City/[facility]/ZIP Co de Phone Number [facility] [place] [address] * ABO/Rh Typing (06/08/2018 3:29 PM EST) Pathologist [facility] ABORH Type A Pos [facility] Blood specimen (specimen) 06/08/2018 3:29 PM EST 06/08/2018 3:37 PM EST Narrative Resulting Agency Comment Spec In Lab Derrick Watts MD BLOOD BANK LAB OR DERABLES Performing Organization Address [facility]/ZIP Co de Phone Number [facility] [place] [address] * (ABNORMAL) Hemoglobin and Hematocrit, blood (06/08/2018 3:29 PM EST) Hemoglobin 12.5(L) 13.7 - 16.5 gm/dL [facility] Hematocrit 35.4(L) 40.5 - 48.5 % [facility] Blood specimen (specimen) 06/08/2018 3:29 PM EST 06/08/2018 3:34 PM EST Narrative Resulting Agency Comment Spec In Lab Derrick Watts MD HEMATOLOGY ORDERA BLES Performing Organization Address [facility] Co de Phone Number [facility] [place] [address] * (ABNORMAL) Fructosamine (06/08/2018 3:29 PM EST) Fructosamine (AUGUST) 538(H) 200 - 285 mcmol/L [facility] Comment: Test Performed by: [address] [id number] Blood specimen (specimen) 06/08/2018 3:29 PM EST 06/09/2018 8:46 AM EST Narrative Resulting Agency Comment Spec In Lab Derrick Watts MD LAB SEND OUT ORDToma RABJERARDO Performing Organization Address [facility] Co de Phone Number [facility] [place] [address] * (ABNORMAL) C-peptide (06/08/2018 3:29 PM EST) Pathologist [facility] C-Peptide 11.0(H) 0.8 - 5.2 ng/mL [facility] Blood specimen (specimen) 06/08/2018 3:29 PM EST 06/08/2018 3:34 PM EST Narrative Resulting Agency Comment Spec In Lab Derrick Watts MD CHEMISTRY ORDERAB LES Performing Organization Address [facility] Co de Phone Number [facility] [place] [address] * PSA (06/08/2018 3:29 PM EST) Prostate Specific Antigen (Ultrasensitiv e) 0.80 0.00 - 4.00 ng/mL [facility] Blood specimen (specimen) 06/08/2018 3:29 PM EST 06/08/2018 3:34 PM EST Narrative Resulting Agency Comment Spec In Lab Derrick Watts MD CHEMISTRY ORDERAB LES [facility] [place] [address] * (ABNORMAL) Hemoglobin A1c (06/08/2018 3:29 PM EST) Hemoglobin A1c 11.2(H) 4.3 - 5.6 % [facility] Comment: Reference Range: 4.3 [...] Mellitus, Diabetes Care 2013; 36: Suppl. 1, S67-59 Estimated Average Glucose 275 mg/dL [facility] Comment: eAG equivalents for [...] into estimated average glucose values. ??Diabetes Care 2008:31(8):6724-9202. Blood specimen (specimen) 06/08/2018 3:29 PM EST 06/08/2018 3:34 PM EST Narrative Resulting Agency Comment Spec In Lab Derrick Watts MD CHEMISTRY ORDERAB LES Performing Organization Address [facility] de Phone Number [facility] [place] [address] * Varicella zoster Antibody, IgG (06/08/2018 3:29 PM EST) Varicella Zoster Antibody IgG Pos [facility] Blood specimen (specimen) 06/08/2018 3:29 PM EST 06/09/2018 7:28 AM EST Narrative Resulting Agency Comment Spec In Lab Derrick Watts MD IMMUNOLOGY ORDERA BLES Performing Organization Address [facility] Phone Number [facility] [place] [address] * (ABNORMAL) Toxoplasma Antibody, IgG (06/08/2018 3:29 PM EST) Toxoplasma Antibody IgG Positive( A) Negative [facility] Blood specimen (specimen) 06/08/2018 3:29 PM EST 06/09/2018 7:28 AM EST Narrative Resulting Agency Comment Spec In Lab Derrick Watts MD IMMUNOLOGY ORDERA BLES Performing Organization Address [facility] de Phone Number [facility] [place] [address] * Syphilis Screening Antibody with reflex RPR (06/08/2018 3:29 PM EST) Syphilis IgG/IgM Negative Negative [facility] Blood specimen (specimen) 06/08/2018 3:29 PM EST 06/08/2018 3:34 PM EST Narrative Resulting Agency Comment Spec In Lab Derrick Watts MD CHEMISTRY ORDERAB LES Performing Organization Address [facility] Co de Phone Number [facility] [place] [address] * HIV Screen, 4th Generation (06/08/2018 3:29 PM EST) Pathologist [facility] HIV Ab/Ag Screen Negative Negative [facility] Comment: This 4th Generation [...] MD CHEMISTRY ORDERAB LES Performing Organization Address [facility] Co de Phone Number [facility] [place] [address] * (ABNORMAL) HSV 1 and 2 IgG Antibodies (06/08/2018 3:29 PM EST) Pathologist [facility] HSV Type 1 Ab, IgG Pos(A) Neg [facility] HSV Type 2 Ab, IgG Pos(A) Neg [facility] Blood specimen (specimen) 06/08/2018 3:29 PM EST 06/09/2018 7:28 AM EST Narrative Resulting Agency Comment Spec In Lab Derrick Watts MD IMMUNOLOGY ORDERA BLES Performing Organization Address [facility] Co de Phone Number [facility] [place] [address] * (ABNORMAL) Carlie-Carballo Virus Antibodies (06/08/2018 3:29 PM EST) Pathologist [facility] EBV (VCA) IgG Ab Pos(A) Neg [facility] EBV (VCA) IgM Ab Neg Neg [facility] EBNA Antibodies Pos(A) Neg [facility] EBV Interpretation Results suggest past infection. [facility] Comment: In most populations, [...] MD IMMUNOLOGY ORDERA BLES Performing Organization Address [facility] Co de Phone Number [facility] [place] [address] * CMV Antibody, IgG (06/08/2018 3:29 PM EST) CMV IgG Negative Negative [facility] Blood specimen (specimen) 06/08/2018 3:29 PM EST 06/09/2018 7:28 AM EST Narrative Resulting Agency Comment Spec In Lab Derrick Watts MD IMMUNOLOGY ORDERA BLES Performing Organization Address [facility] Co de Phone Number [facility] [place] [address] * Hepatitis C RNA, quantitative, PCR (06/08/2018 3:29 PM EST) HCV Viral Load <12 IU/mL [facility] HCV Viral Load Result: <12 IU/mL(Target Not Detected) Indication for Study: Hepatitis C Infection Analysis: The Ham RealTime HCV assay is an in vitro reverse land title examiner polymerase chain reaction (RT-PCR)for the quantitation of hepatitis C viral (HCV) RNA in human serum or plasma (EDTA) from HCV-infected individuals. Sample: plasma (0.7 mL minimum volume) Method: Ham RealTime HCV Assay Linear Range: 12 IU/mL - 100,000,000IU/mL Note: The Ham RealTime HCV Assay has been approved by the U.S. Food and Drug Administration. [facility] Comment: [VERIFIED DATE]06.13.18 Verified By:Denisse Clarke (Electronic Signature) Blood specimen (specimen) 06/08/2018 3:29 PM EST 06/12/2018 8:45 AM EST Narrative Resulting Agency Comment Spec In Lab Derrick Watts MD MOLECULAR ORDERAB LES Performing Organization Address [facility] Co de Phone Number [facility] [place] [address] * Hepatitis C Antibody (06/08/2018 3:29 PM EST) Hepatitis C Antibody Negative Negative [facility] Blood specimen (specimen) 06/08/2018 3:29 PM EST 06/08/2018 3:34 PM EST Narrative Resulting Agency Comment Spec In Lab Derrick Watts MD CHEMISTRY ORDERAB LES Performing Organization Address [facility] de Phone Number [facility] [place] [address] * Hepatitis B Surface Antigen (06/08/2018 3:29 PM EST) Hepatitis B Surface Antigen Negative Negative [facility] Blood specimen (specimen) 06/08/2018 3:29 PM EST 06/08/2018 3:34 PM EST Narrative Resulting Agency Comment Spec In Lab Derrick Watts MD CHEMISTRY ORDERAB LES Performing Organization Address [facility] de Phone Number [facility] [place] [address] * Hepatitis B Surface Antibody (06/08/2018 3:29 PM EST) Hepatitis B Surface Antibody, Quantitative 235.3 IU/L [facility] Comment: HepB Surface Ab Quant: Unvaccinated: < 8.5 IU/L Vaccinated: > 11.5 IU/L Hepatitis B Surface Antibody Positive [facility] Comment: Patient is considered to be immune to HBV infection. Expected Results: Vaccinated: Positive Unvaccinated: Negative Blood specimen (specimen) 06/08/2018 3:29 PM EST 06/08/2018 3:34 PM EST Narrative Resulting Agency Comment Spec In Lab Derrick Watts MD CHEMISTRY ORDERAB LES Performing Organization Address [facility] Co de Phone Number [facility] [place] [address] * Hepatitis B Core Antibody, IgM (06/08/2018 3:29 PM EST) Hepatitis B Core IgM Negative Negative [facility] Blood specimen (specimen) 06/08/2018 3:29 PM EST 06/08/2018 3:34 PM EST Narrative Resulting Agency Comment Spec In Lab Derrick Watts MD CHEMISTRY ORDERAB LES Performing Organization Address [facility] Phone Number [facility] [place] [address] * Prothrombin Time (06/08/2018 3:29 PM EST) Prothrombin Time 11.7 9.4 - 12.5 sec [facility] International Normalization Ratio 1.0 [facility] Comment: An INR <2.0 [...] MD HEMATOLOGY ORDERA BLES Performing Organization Address [facility] Co de Phone Number [facility] [place] [address] * APTT (06/08/2018 3:29 PM EST) Partial Thromboplastin Time 34 25 - 37 sec [facility] Comment: The PTT is NOT appropriate for heparin monitoring. Use the Anti-Xa level for heparin monitoring (HEP UFH) or LMWH monitoring (HEP LMW). A PTT less than 37 seconds generally indicates adequate hemostasis. Blood specimen (specimen) 06/08/2018 3:29 PM EST 06/08/2018 3:34 PM EST Narrative Resulting Agency Comment Spec In Lab Derrick Watts MD HEMATOLOGY ORDERA BLES [facility] [place] [id number] documented in this encounter Visit Diagnoses Diagnosis [...] uncontrolled documented in this encounter Care Teams Poultry Helper Relationship Specialty Start Date End Date Jarad Keller DNP PCP - General Family Medicine 06/05/18 02/09/21 documented as of this encounter
--- OUTSIDE RECORDS SUMMARY | 2023-12-31 17:05 | XMS_ITS | Encounter Summary ---
[place] [address] Care Team Providers Care Shrimping Boat Captain Name Role Phone Jarad Keller DNP Primary Care Provider [phone] Encounter Details Date Type Department Care Team (Late st Contact Info) Description 08/07/2018 Telephone [place] [id number] Tamar Smith, RN Social History Tobacco Use [...] on filedocumented in this encounter Care Teams Shrimping Boat Captain Relationship Specialty Start Date End Date Jarad Keller DNP PCP - General Family Medicine 06/05/18 02/09/21 documented as of this encounter
--- OUTSIDE RECORDS SUMMARY | 2023-12-31 17:05 | XMS_ITS | Encounter Summary ---
[place] [address] Care Team Providers Care Needle Maker Name Role Phone Jarad Keller DNP Primary Care Provider [phone] Encounter Details Date Type Department Care Team (Late st Contact Info) Description 06/21/2018 Telephone [place] [id number] Tamar Smith RN Social History Tobacco Use [...] discuss what was done/ not done at [facility]. Requested some records from them as not [...] on filedocumented in this encounter Care Teams Needle Maker Relationship Specialty Start Date End Date Jarad Keller DNP PCP - General Family Medicine 06/05/18 02/09/21 documented as of this encounter
--- OUTSIDE RECORDS SUMMARY | 2023-12-31 17:05 | XMS_ITS | Encounter Summary ---
[place] [address] Care Team Providers Care Clinical Practitioner Name Role Phone Jarad Keller DNP Primary Care Provider [phone] Encounter Details Date Type Department Care Team (Late st Contact Info) Description 10/19/2018 4:00 PM EDT Tech [place] [address] Mekhi Doss, RVT Social History Tobacco Use [...] on filedocumented in this encounter Care Teams Clinical Practitioner Relationship Specialty Start Date End Date Jarad Keller DNP PCP - General Family Medicine 06/05/18 02/09/21 documented as of this encounter
--- OUTSIDE RECORDS SUMMARY | 2023-12-31 17:05 | XMS_ITS | Encounter Summary ---
[place] [address] Care Team Providers Care Women'S Activities Adviser Name Role Phone Jarad Keller DNP Primary Care Provider [phone] Encounter Details Date Type Department Care Team (Late st Contact Info) Description 06/08/2018 Orders Only Solid [place] [address] Tamar Smith RN Pre-transplant evaluation for kidney [...] EST) Hemoglobin 12.5(L) 13.7 - 16.5 gm/dL [facility] Hematocrit 35.4(L) 40.5 - 48.5 % [facility] Blood specimen (specimen) 06/08/2018 3:29 PM EST 06/08/2018 3:34 PM EST Narrative Resulting Agency Comment Spec In Lab Young Watts MD HEMATOLOGY ORDERA BLES Performing Organization Address City/[facility]/ZIP Co de Phone Number [facility] [place] [address] * (ABNORMAL) Fructosamine (06/08/2018 3:29 PM EST) Fructosamine (AUGUST) 538(H) 200 - 285 mcmol/L [facility] Comment: Test Performed by: [address] [address] Blood specimen (specimen) 06/08/2018 3:29 PM EST 06/09/2018 8:46 AM EST Narrative Resulting Agency Comment Spec In Lab Young Watts MD LAB SEND OUT JAY BEVERLY Performing Organization Address City/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
--- OUTSIDE RECORDS SUMMARY | 2023-12-31 17:05 | XMS_ITS | Encounter Summary ---
Author Organization [facility] [address] Care Team Providers Care Geothermal Powerplant Mechanic Helper Name Role Phone Jarad Keller DNP Primary Care Provider [phone] Encounter Details Date Type Department Care Team (Late st Contact Info) Description 07/30/2019 Orders [place] [address] Louis Vergara MD [facility] DR [place] [address] Closed fracture of right scapula, unspecified part [...] encounter documented in this encounter Care Teams Geothermal Powerplant Mechanic Helper Relationship Specialty Start Date End Date Jarad Keller DNP PCP - General Family Medicine 06/05/18 02/09/21 documented as of this encounter
--- OUTSIDE RECORDS SUMMARY | 2023-12-31 17:05 | XMS_ITS | Encounter Summary ---
[place] [address] Care Team Providers Care Manager Clinical Informatics Name Role Phone Jarad Keller DANIKA Primary Care Provider [phone] Reason for Visit * Auth/Cert Specialty Diagnoses / Procedures Referred By Puneet hallman Referred To Contact Diagnoses Fall Fall, initial encounter Referral ID Status Reason Start Date Expiration Date Visits Re quested Visits Authorized [id number] 1 1 Encounter Details Date Type Department Care Team (Latest Contact Info) Description 07/31/2019 5:15 AM EDT - 07/31/2019 11:59 PM EDT Hospital Encounter [place] [address] Discharge Disposition: Home Social History Tobacco Use [...] mLs documented in this encounter Care Teams Manager Clinical Informatics Relationship Specialty Start Date End Date Jarad Keller DNP PCP - General Family Medicine 06/05/18 02/09/21 documented as of this encounter
--- OUTSIDE RECORDS SUMMARY | 2023-12-31 17:05 | XMS_ITS | Encounter Summary ---
[place] [address] Care Team Providers Care Storage Management Architect Name Role Phone Jarad Keller DNP Primary Care Provider [phone] Encounter Details Date Type Department Care Team (Late st Contact Info) Description 07/29/2019 9:05 PM EDT Ancillary Procedure [place] [address] Aaron Dover MD [facility] [place] [address] Social History Tobacco Use Types Packs/Day Years [...] FILM LIBRARY ORD ERABLES Performing Organization Address City/State/[facility] Co de Phone Number [place], [place] documented in this encounter Visit Diagnoses Not on filedocumented in this encounter Care Teams Storage Management Architect Relationship Specialty Start Date End Date Jarad Keller DNP PCP - General Family Medicine 06/05/18 02/09/21 documented as of this encounter
--- OUTSIDE RECORDS SUMMARY | 2023-12-31 17:05 | XMS_ITS | Encounter Summary ---
Author Organization [facility] [place] [address] Care Team Providers Care Perishable Freight Inspector Name Role Phone Jarad Keller DNP Primary Care Provider [phone] Encounter Details Date Type Department Care Team (Late st Contact Info) Description 06/08/2018 1:30 PM EST Office Visit [place] [address] Merlene Ferro, [facility] [place] [address] Pre-transplant evaluation for kidney transplant Social History [...] EST TRANSPLANT NUTRITION Initial Transplant Note This racebook writer met with Maurice GurrolaKaty Ronni a 58 [...] initiated hemodialysis about 2 years ago in [place] and transferred about 2 months ago to [facility] unit Food Record: B -> none [...] means for contact provided. Plan communicated to Console Manager for Documentation in patient's transplant medical record. Remain available for questions/concerns. documented in this encounter Plan of Treatment Not on file documented as of this encounter Visit Diagnoses Diagnosis Pre-transplant evaluation for kidney transplant Other specified pre-operative examination documented in this encounter Care Teams Perishable Freight Inspector Relationship Specialty Start Date End Date Jarad Keller DNP PCP - General Family Medicine 06/05/18 02/09/21 documented as of this encounter
--- OUTSIDE RECORDS SUMMARY | 2023-12-31 17:05 | XMS_ITS | Encounter Summary ---
[place] [address] Care Team Providers Care Biology Faculty Member Name Role Phone Jarad Keller DNP Primary Care Provider [phone] Encounter Details Date Type Department Care Team (Late st Contact Info) Description 06/08/2018 2:30 PM EST Office Visit [place] [address] Tamar Smith RN Pre-transplant evaluation for kidney [...] Required Testing: Up to date Immunizations: Tetanus, [id number], [id number], shingles, Hep B series, and yearly flu ([facility] [place]) Healthcare Maintenance: Yearly physical, colonoscopy ([facility] [place]) and BRAULIO Cardiac: EKG and Cardiac stress test every other year while on the wait list ([facility] in [place]) Labs: Serologies, ABO, and tissue typing Vascular: [facility] (maybe in [place]) Radiology: Chest X-ray ([facility]) Other testing may be needed based on [...] examination documented in this encounter Care Teams Biology Faculty Member Relationship Specialty Start Date End Date Jarad Keller DNP PCP - General Family Medicine 06/05/18 02/09/21 documented as of this encounter
--- OUTSIDE RECORDS SUMMARY | 2023-12-31 17:05 | XMS_ITS | Encounter Summary ---
[place] [address] Care Team Providers Care Electrical Apprentice Name Role Phone Jarad Keller DNP Primary Care Provider [phone] Reason for Visit * Reason Onset Date Comments Prior Authorization 09/29/2018 VGo 40 Encounter Details Date Type Department Care Team (Late st Contact Info) Description 09/29/2018 Telephone [place] [id number] Simi Singh metallographer (VGo 40) Social History Tobacco Use Types [...] coverage on injections Health plan: Medicare Authorizing wholesale representative name: Virgie Faxed to health plan on: 09/29/18 via [facility] Health plan decision: Quantity approved: Authorization number: [...] on filedocumented in this encounter Care Teams Electrical Apprentice Relationship Specialty Start Date End Date Jarad Keller DNP PCP - General Family Medicine 06/05/18 02/09/21 documented as of this encounter
--- OUTSIDE RECORDS SUMMARY | 2023-12-31 17:05 | XMS_ITS | Encounter Summary ---
[place] [address] Care Team Providers Care Governor Assembler Hydraulic Name Role Phone Jarad Keller DNP Primary Care Provider [phone] Encounter Details Date Type Department Care Team (Late st Contact Info) Description 06/21/2018 Orders Only [place] [address] Tamar Smith RN Pre-transplant evaluation for kidney transplant; ESRD (end stage renal disease); ESRD on hemodialysis; Coronary artery disease, angina presence unspecified, unspecified vessel or lesion type, unspecified whether [place] or transplanted heart Social History Tobacco Use [...] unspecified vessel or lesion type, unspecified whether [place] or transplanted heart documented in this encounter Care Teams Governor Assembler Hydraulic Relationship Specialty Start Date End Date Jarad Keller DNP PCP - General Family Medicine 06/05/18 02/09/21 documented as of this encounter
--- OUTSIDE RECORDS SUMMARY | 2023-12-31 17:05 | XMS_ITS | Encounter Summary ---
[place] [address] Care Team Providers Care Wire Stretcher Name Role Phone Jarad Keller DNP Primary Care Provider [phone] Encounter Details Date Type Department Care Team (Late st Contact Info) Description 07/29/2019 9:10 PM EDT Ancillary Procedure [place] [address] Aaron Dover MD [facility] [place] [address] Social History Tobacco Use Types Packs/Day Years [...] FILM LIBRARY ORD ERABLES Performing Organization Address City/State/[facility] Co de Phone Number [place], [place] documented in this encounter Visit Diagnoses Not on filedocumented in this encounter Care Teams Wire Stretcher Relationship Specialty Start Date End Date Jarad Keller DNP PCP - General Family Medicine 06/05/18 02/09/21 documented as of this encounter
--- OUTSIDE RECORDS SUMMARY | 2023-12-31 17:05 | XMS_ITS | Encounter Summary ---
Author Organization [facility] [place] [address] Care Team Providers Care Principal Research Economist Name Role Phone Jarad Keller DNP Primary Care Provider [phone] Encounter Details Date Type Department Care Team (Late st Contact Info) Description 06/08/2018 11:00 AM EST Office Visit [place] [address] Daily, Young Ramirez MD [facility] [place] [address] IDDM (insulin dependent diabetes mellitus); Hypertension, unspecified [...] He tells me he has had a hopland kidney biopsy and this was done somewhere in [place]. He is known about his diabetes for [...] performed by Erasmo Bajwa MD at [facility] OSC ??? PRO REMV CATARACT EXTRACAP,INSERT LENS,COMP 07/18/2012 ? ? PRO REPAIR COMPLEX RETINA DETACH VITRECTOMY & MEMB PEEL 04/03/2012, 04/03/12 REPAIR COMPLEX RETINAL DETACHMENT, W/ VITRECTOMY, MEMBRANE PEELING performed by Matteo Diane MD at [facility] MAIN OR ? ? PRO REPAIR COMPLEX RETINA DETACH VITRECTOMY & MEMB PEEL 07/31/2012 REPAIR COMPLEX RETINAL DETACHMENT, W/ VITRECTOMY, MEMBRANE PEELING performed by Matteo Diane MD at [facility] MAIN OR ? ? PRO REPAIR COMPLEX RETINA DETACH VITRECTOMY & MEMB PEEL 01/08/2013 REPAIR COMPLEX RETINAL DETACHMENT, W/ VITRECTOMY, MEMBRANE PEELING performed by Matteo Diane MD at [facility] MAIN OR ??? PRO TX EXTENSIVE [...] from 01/08/2013 in Same Day Program at [facility] Admission (Discharged) from 11/29/2012 in Outpatient Surgery Center [facility] Weight 103.4 kg (228 lb) [...] exam table without assistance unremarkable. Assessment: Mr. Maurice Rudolph is a 58 y.o. [...] return for putting your dorothy in the [facility] transplant center. We will be discussing [...] MS, FACS Chief of Solid Organ Transplant [facility] documented in this encounter Plan [...] adult documented in this encounter Care Teams Principal Research Economist Relationship Specialty Start Date End Date Jarad Keller DNP PCP - General Family Medicine 06/05/18 02/09/21 documented as of this encounter
--- OUTSIDE RECORDS SUMMARY | 2023-12-31 17:05 | XMS_ITS | Encounter Summary ---
[place] [address] Care Team Providers Care Ferry Engineer Name Role Phone Jarad Keller DNP Primary Care Provider [phone] Encounter Details Date Type Department Care Team (Late st Contact Info) Description 06/27/2018 Notes Only [place] [address] Tamar Smith RN Social History Tobacco Use [...] on filedocumented in this encounter Care Teams Ferry Engineer Relationship Specialty Start Date End Date Jarad Keller DNP PCP - General Family Medicine 06/05/18 02/09/21 documented as of this encounter
--- OUTSIDE RECORDS SUMMARY | 2023-12-31 17:05 | XMS_ITS | Encounter Summary ---
[place] [address] Care Team Providers Care Soft Sugar Supervisor Name Role Phone Jarad Keller DNP Primary Care Provider [phone] Encounter Details Date Type Department Care Team (Late st Contact Info) Description 07/29/2019 10:25 PM EDT Ancillary Procedure [place] [address] Social History Tobacco Use Types Packs/Day Years [...] Dover MD IMG FILM LIBRARY ORD ERABLES [place], [place] documented in this encounter Visit Diagnoses Not on filedocumented in this encounter Care Teams Soft Sugar Supervisor Relationship Specialty Start Date End Date Jarad Keller DNP PCP - General Family Medicine 06/05/18 02/09/21 documented as of this encounter
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
--- OUTSIDE RECORDS SUMMARY | 2023-12-31 17:06 | XMS_ITS | Encounter Summary ---
Author Organization [facility] [place] [address] Care Team Providers Care Technical Planner Name Role Phone Ej Duran MD Primary Care Provider [phone] Encounter Details Date Type Department Care Team (Late st Contact Info) Description 01/08/2013 7:30 AM EDT - 01/08/2013 8:58 AM EDT Surgery [place] [address] Ruthann Beckett MD [facility] [place] [address] REPAIR COMPLEX RETINAL DETACH W/VITRECTOMY, MEMBRANE PEELING, [...] all eye drops to tomorrow's appointment. Call [phone] for all questions concerns. Left side down [...] Beckett MD - 01/08/2013 9:38 AM EDT [facility] [place] Patient Name: Maurice Rudolph : [id number] MR#: [id number] Case Date: 01/08/2013 Surgeon: Surgeon(s) and Role: * Ruthann Beckett MD - Primary * Lesli Vo PA - Physician Correctional Maintenance Technician 8:10-9:38=1h 28m SURGICAL STAFF/ASSISTANTS RUTHANN Giordano. Hayley [...] capsulectomy with lysis of iris adhesions with advent of normal configuration of pupil. OPERATIVE INDICATIONS: [...] and fibrosis was easily dissected with good advent of pupil margin contour. This now provided [...] Operative Note Patient Name: Maurice Rudolph : [id number] MR#: [id number] Case Date: 01/08/2013 Surgeon: Surgeon(s) and Role: * Ruthann Beckett MD - Primary * Lesli Vo PA - Physician Correctional Maintenance Technician Preoperative diagnosis: RETINAL DETACHMENT Postoperative diagnosis: RETINAL [...] Glucose, POC 111 60 - 199 mg/dL [facility] Comment: Supplemental ranges: <110 mg/dL before meals <200 mg/dL all other times of the day Blood specimen (specimen) 01/08/2013 9:58 AM EDT 01/08/2013 9:58 AM EDT Ruthann Beckett MD POINT OF CARE T EST ORDERABLES Performing Organization Address [facility] Co de Phone Number [facility] * POCT Glucose (01/08/2013 7:19 AM EDT) Glucose, POC 119 60 - 199 mg/dL [facility] Comment: Supplemental ranges: <110 mg/dL before meals <200 mg/dL all other times of the day Blood specimen (specimen) 01/08/2013 7:19 AM EDT 01/08/2013 7:19 AM EDT Ruthann Beckett MD POINT OF CARE T EST ORDERABLES Performing Organization Address [facility] Co de Phone Number [facility] documented in this encounter Visit Diagnoses [...] Given 01/08/2013 7:17 AM EDT 1 drop luyduhjw-hkodhrlxh-dpibffuzijqmp (DEXACINE) 3.5-10,000-0.1 mg-unit/g-% ophthalmic ointment ONCE PRN, [...] (Given - Provid er: Ruthann Beckett MD) fdizpgez-lrahkdjwv-orqowkfguhfg e (DEXACINE) 3.5-10,000-0.1 mg-unit/g-% ophthalmic ointment (CANCELED) [...] RN) documented in this encounter Care Teams Technical Planner Relationship Specialty Start Date End Date Ej Duran MD [address] [place] [address] PCP - General 10/28/11 06/04/18 documented as of this encounter
--- OUTSIDE RECORDS SUMMARY | 2023-12-31 17:06 | XMS_ITS | Encounter Summary ---
Author Organization [facility] [place] [address] Care Team Providers Care Lumber Buyer Name Role Phone jE Duran MD Primary Care Provider [phone] Reason for Visit * Reason Comments Diabetes 3-mon f/u for PDR Encounter Details Date Type Department Care Team (Late st Contact Info) Description 09/14/2013 2:30 PM EDT [place] [address] Matteo Diane MD [facility] DR [place]THAL[place] [address] Proliferative diabetic retinopathy, both eyes, type 1, [...] glaucoma documented in this encounter Care Teams Lumber Buyer Relationship Specialty Start Date End Date Ej Duran MD [address] [place] [address] PCP - General 10/28/11 06/04/18 documented as of this encounter
--- OUTSIDE RECORDS SUMMARY | 2023-12-31 17:06 | XMS_ITS | Encounter Summary ---
Author Organization [facility] [address] Care Team Providers Care Senior Accounting Manager Name Role Phone Ej Duran MD Primary Care Provider [phone] Encounter Details Date Type Department Care Team (Late st Contact Info) Description 07/31/2012 7:30 AM EDT - 07/31/2012 8:28 AM EDT Surgery [place] [address] Ruthann Beckett MD [facility] [place] [address] REPAIR COMPLEX RETINAL DETACH W/VITRECTOMY, MEMBRANE PEELING, [...] all eye drops to tomorrow's appointment. Call [phone] for all questions concerns. Right side down [...] Beckett MD - 07/31/2012 9:00 AM EDT [facility] Operative Note Patient Name: Maurice Rudolph : [id number] MR#: [id number] Case Date: 07/31/2012 Surgeon: Surgeon(s) and Role: [...] at this time. Please note also the nfmbbgfq-cr-ncrpkbht time was from 7:55 a.m. exactly until 8:55 a.m. The patient will return here postoperative day #1. He is to lie on the right side. Airway safety and venous thrombosis prevention measures will be reviewed again in the postoperative setting. He is to call the eye physician first line production supervisor the overnight period if there are any [...] Operative Note Patient Name: Maurice Rudolph : [id number] MR#: [id number] Case Date: 07/31/2012 Surgeon: Surgeon(s) and Role: [...] * POCT Glucose (07/31/2012 9:09 AM EDT) [facility] Signature Glucose, POC 181 60 - 199 mg/dL [facility] Comment: Supplemental ranges: <110 mg/dL before [...] CARE T EST ORDERABLES Performing Organization Address [facility] Co de Phone Number [facility] [...] Given 07/31/2012 7:10 AM EDT 1 drop ilfpfixs-fhfviahvo-leqjaqxxhtycw (DEXACINE) 3.5-10,000-0.1 mg-unit/g-% ophthalmic ointment ONCE PRN, [...] Beckett MD - Comment: mixed with bupivacaine) qxbsyvac-tnksexzva-kaupbytdpyuz e (DEXACINE) 3.5-10,000-0.1 mg-unit/g-% ophthalmic ointment (CANCELED) [...] documented in this encounter Care Teams Senior Accounting Manager Relationship Specialty Start Date End Date Ej Duran MD [address] [place] [address] PCP - General 10/28/11 06/04/18 documented as of this encounter
--- OUTSIDE RECORDS SUMMARY | 2023-12-31 17:06 | XMS_ITS | Encounter Summary ---
Author Organization [facility] [place] [place] [address] Care Team Providers Care Reports Analysis Manager Name Role Phone Ej Duran MD Primary Care Provider [phone] Reason for Visit * Reason Comments Pseudophakia 1 week s/p YAG CAP O S done 11/15/2013 Encounter Details Date Type Department Care Team (Late st Contact Info) Description 11/23/2013 12:45 PM EDT [place] [address] Erasmo Bajwa MD [facility] [place] [address] PCO (posterior capsular opacification), left (Primary Dx) [...] unspecified documented in this encounter Care Teams Reports Analysis Manager Relationship Specialty Start Date End Date Ej Duran MD [address] [place] [address] PCP - General 10/28/11 06/04/18 documented as of this encounter
--- OUTSIDE RECORDS SUMMARY | 2023-12-31 17:06 | XMS_ITS | Encounter Summary ---
Author Organization [facility] [place] [address] Care Team Providers Care Mechanical Equipment Test Engineer Name Role Phone Ej Duran MD Primary Care Provider [phone] Reason for Visit * Reason Comments Post Op Patient is postop da y one status post repair of tractional detachment and removal of retained lens material. ESTRELLA Hardy Encounter Details Date Type Department Care Team (Late st Contact Info) Description 08/01/2012 10:00 AM EDT Office [place] [address] Matteo Diane MD [facility] DR [place] [address] Retinal detachment, tractional, right eye. Postoperative day [...] hypertension documented in this encounter Care Teams Mechanical Equipment Test Engineer Relationship Specialty Start Date End Date Ej Duran MD [address] [place] [address] PCP - General 10/28/11 06/04/18 documented as of this encounter
--- OUTSIDE RECORDS SUMMARY | 2023-12-31 17:06 | XMS_ITS | Encounter Summary ---
Author Organization [facility] [place] [address] Care Team Providers Care Basket Weaver Name Role Phone Ej Duran MD Primary Care Provider [phone] Reason for Visit * Reason Comments Post Op 3 wk ck s/p repair o f tractional detachment and removal of retained lens material OD 07/31/12 Encounter Details Date Type Department Care Team (Late st Contact Info) Description 08/22/2012 2:00 PM EDT Office [place] [address] Rylan Gasca MD [facility] [place] [address] Acute angle-closure glaucoma (Primary Dx) Discharge Disposition: [...] Primary documented in this encounter Care Teams Basket Weaver Relationship Specialty Start Date End Date Ej Duran MD [address] [place] [address] PCP - General 10/28/11 06/04/18 documented as of this encounter
--- OUTSIDE RECORDS SUMMARY | 2023-12-31 17:06 | XMS_ITS | Encounter Summary ---
Author Organization [facility] [place] [address] Care Team Providers Care Telemarketing Supervisor Name Role Phone Ej Duran MD Primary Care Provider [phone] Reason for Visit * Reason Comments Post Op 11 day P/O repair of tractional detachment and removal of retained lens material OD 07/31/12 Encounter Details Date Type Department Care Team (Late st Contact Info) Description 08/10/2012 9:30 AM EDT Office [place] [address] Matteo Diane MD [facility] [place] [address] Hyperopia (Primary Dx); Vitreous hemorrhage, right eye; [...] glaucoma documented in this encounter Care Teams Telemarketing Supervisor Relationship Specialty Start Date End Date Ej Duran MD [address] [place] [address] PCP - General 10/28/11 06/04/18 documented as of this encounter
--- OUTSIDE RECORDS SUMMARY | 2023-12-31 17:06 | XMS_ITS | Encounter Summary ---
Author Organization [facility] [place] [address] Care Team Providers Care Facilities Plant Engineer Name Role Phone Ej Duran MD Primary Care Provider [phone] Reason for Visit * Reason Onset Date Comments Questions 02/22/2013 pt was told by monse olivas that dmm appointments were not needed Encounter Details Date Type Department Care Team ([facility] st Contact Info) Description 02/22/2013 Telephone [place] [address] Erasmo Bajwa MD [facility] [place] [address] Questions (pt was told by clemente that [...] filedocumented in this encounter Care Teams Facilities Plant Engineer Relationship Specialty Start Date End Date Ej Duran MD [address] [place] [address] PCP - General 10/28/11 06/04/18 documented as of this encounter
--- OUTSIDE RECORDS SUMMARY | 2023-12-31 17:06 | XMS_ITS | Encounter Summary ---
Author Organization [facility] [place] [place] [address] Care Team Providers Care Lumber Carrier Name Role Phone Ej Duran MD Primary Care Provider [phone] Reason for Visit * Reason Comments Post Op S/P Cataract extract ion w/ IOL OS 11/29/12 (DMM) Encounter Details Date Type Department Care Team (Late st Contact Info) Description 12/05/2012 2:00 PM EDT Office Visit [place] [address] Inocencia Reyes MD [facility] [place] [address] Post-operative state (Primary Dx); Pseudophakia; PDR (proliferative [...] uncontrolled documented in this encounter Care Teams Lumber Carrier Relationship Specialty Start Date End Date Ej Duran MD [address] [place] [address] PCP - General 10/28/11 06/04/18 documented as of this encounter
--- OUTSIDE RECORDS SUMMARY | 2023-12-31 17:06 | XMS_ITS | Encounter Summary ---
Author Organization [facility] [place] [place] [address] Care Team Providers Care Steam Station Supervisor Name Role Phone Ej Duran MD Primary Care Provider [phone] Encounter Details Date Type Department Care Team (Late st Contact Info) Description 11/29/2012 12:00 PM EDT - 11/29/2012 12:40 PM EDT Surgery Out[facility] [place] [address] Gabe Bajwa MD [facility] [place] [address] CATARACT EXTRACTION, EXTRACAPSULAR, W/ LENS INSERTION (WRVU [...] or additional concerns or questions please call: [phone] 8am to5pm. After 5pm, please call [phone] and ask for opthalmology MD bronze plater. documented in this encounter Medications at Time [...] operative team. Monitors were placed by the farmworker rice. Topical anaesthetic was placed in the left [...] emulsified with the phacoemulsification handpiece in a gmnery-tud-zhsjfeg fashion. Residual cortical material was removed with the automated irrigation/aspiration unit. The posterior capsule was polished. The capsular bag was inflated with viscoelastic. An Olayinka Model [id number] posterior chamber lens with a 6mm acrylic optic was inspected and found to be without defects, placed in the [place] II core inserter cartridge, and injected into the capsular bag [...] RN) documented in this encounter Care Teams Steam Station Supervisor Relationship Specialty Start Date End Date Ej Duran MD [address] [place] [address] PCP - General 10/28/11 06/04/18 documented as of this encounter
--- OUTSIDE RECORDS SUMMARY | 2023-12-31 17:06 | XMS_ITS | Encounter Summary ---
Author Organization [facility] [place] [address] Care Team Providers Care Precision Farming Specialist Name Role Phone Ej Duran MD Primary Care Provider [phone] Reason for Visit * Reason Comments Hyperopia 6 week follow up Diabetes BS was 180 as of yes terday AM Encounter Details Date Type Department Care Team (Late st Contact Info) Description 05/08/2013 2:15 PM EST Office [place] [address] Matteo Diane MD [facility] [place] [address] Proliferative diabetic retinopathy, both eyes (Primary Dx) [...] uncontrolled documented in this encounter Care Teams Precision Farming Specialist Relationship Specialty Start Date End Date Ej Duran MD [address] [place] [address] PCP - General 10/28/11 06/04/18 documented as of this encounter
--- OUTSIDE RECORDS SUMMARY | 2023-12-31 17:06 | XMS_ITS | Encounter Summary ---
[facility] [place] [place] [address] Care Team Providers Care Digital Marketing Apprentice Name Role Phone Ej Duran MD Primary Care Provider [phone] Reason for Visit * Reason Comments Post Op 1 day ck s/p CE/IOL OS Encounter Details Date Type Department Care Team (Late st Contact Info) Description 11/30/2012 10:15 AM EDT Office [place] [address] Erasmo Bajwa MD [facility] [place] [address] Cataract extraction status (Primary Dx) Discharge Disposition: [...] Primary documented in this encounter Care Teams Digital Marketing Apprentice Relationship Specialty Start Date End Date Ej Duran MD [address] [place] [address] PCP - General 10/28/11 06/04/18 documented as of this encounter
--- OUTSIDE RECORDS SUMMARY | 2023-12-31 17:06 | XMS_ITS | Encounter Summary ---
Author Organization [facility]ve [facility] [address] Care Team Providers Care Supervisor Files Name Role Phone Ej Duran MD Primary Care Provider [phone] Reason for Visit * Reason Comments Post Op 1 POD IOL:OD ( 3) Encounter Details Date Type Department Care Team (Late st Contact Info) Description 07/19/2012 10:45 AM EDT Office [place] [address] Phillip Schwartz MD [facility] DR [place] [address] Cataract. Dense with synechiae. Right eye. (Primary [...] cataract documented in this encounter Care Teams Supervisor Files Relationship Specialty Start Date End Date Ej Duran MD [address] [place] [address] PCP - General 10/28/11 06/04/18 documented as of this encounter
--- OUTSIDE RECORDS SUMMARY | 2023-12-31 17:06 | XMS_ITS | Encounter Summary ---
Author Organization [facility] [place] [address] Care Team Providers Care Budget Analyst Name Role Phone Ej Duran MD Primary Care Provider [phone] Reason for Visit * Reason Comments Cataract for cat eval os, s/p vtx od, psph od ischemia od, acg od ,vtx, mp, rd repair od SWENDALEAH Ardon Encounter Details Date Type Department Care Team (Late st Contact Info) Description 11/06/2012 3:15 PM EDT Office [place] [address] Erasmo Bajwa MD [facility] [address] Cataract (Primary Dx); IDDM (insulin dependent diabetes [...] uncontrolled documented in this encounter Care Teams Budget Analyst Relationship Specialty Start Date End Date Ej Duran MD [address] [place] [address] PCP - General 10/28/11 06/04/18 documented as of this encounter
--- OUTSIDE RECORDS SUMMARY | 2023-12-31 17:06 | XMS_ITS | Encounter Summary ---
Author Organization [facility] [place] [address] Care Team Providers Care Visitor Service Assistant Name Role Phone Ej Duran MD Primary Care Provider [phone] Encounter Details Date Type Department Care Team (Late st Contact Info) Description 07/18/2012 7:30 AM EDT - 07/18/2012 8:30 AM EDT Surgery [facility] [place] [address] Lisette Schwartz MD [facility] [place] [address] CATARACT EXTRACTION, EXTRACAPSULAR, WITH LENS INSERTION, COMPLEX [...] Schwartz MD - 07/18/2012 2:59 PM EDT [facility] [place] Patient Name: Maurice Rudolph : [id number] MR#: [id number] Case Date: 07/18/2012 Surgeon: Surgeon(s) and Role: * Lisette Schwartz MD - Primary EXHAUST EQUIPMENT OPERATOR: Staff. PREOPERATIVE DIAGNOSIS: Mature cataract, right [...] Operative Note Patient Name: Maurice Rudolph : [id number] MR#: [id number] Case Date: 07/18/2012 Surgeon: Surgeon(s) and Role: [...] Procedure), Routine 07 (Given - Provid er: rFancoise Ang RN) Continuous Medication Order 07/16/2012 07/17/2012 07/18/2012 lactated ringers infusion 1,000 mL (CANCELED) 1,000 mL, at 100 mL/hr, Intravenous, CONTINUOUS, Starting on Tue07/18/12 at 0715, Until Tue07/18/12 at 1604, Day of Surgery (Day of Procedure) 0715 ([facility] ider: Francoise Ang RN) documented in this encounter Care Teams Visitor Service Assistant Relationship Specialty Start Date End Date Ej Duran MD [address] [place] [address] PCP - General 10/28/11 06/04/18 documented as of this encounter
--- OUTSIDE RECORDS SUMMARY | 2023-12-31 17:06 | XMS_ITS | Encounter Summary ---
Author Organization [facility] [place] [address] Care Team Providers Care Nurse Charge Rn Name Role Phone Ej Duran MD Primary Care Provider [phone] Reason for Visit * Reason Comments Post Op Repair of Tractional Detachment OD/ PDR OU Encounter Details Date Type Department Care Team (Late st Contact Info) Description 02/01/2013 2:00 PM EDT Office [place] [address] Matteo Diane MD [facility] DR [place] [address] Hyperopia; Proliferative diabetic retinopathy, both eyes; Ocular [...] hypertension documented in this encounter Care Teams Nurse Charge Rn Relationship Specialty Start Date End Date Ej Duran MD [address] [place] [address] PCP - General 10/28/11 06/04/18 documented as of this encounter
--- OUTSIDE RECORDS SUMMARY | 2023-12-31 17:06 | XMS_ITS | Encounter Summary ---
[place] [address] Care Team Providers Care Aed Trainer Name Role Phone Ej Duran MD Primary Care Provider [phone] Reason for Visit * Reason Onset Date Comments Eye Pain 02/19/2013 Encounter Details Date Type Department Care Team (Late st Contact Info) Description 02/19/2013 Telephone [place] [address] Young Duff MD [facility] [place] [address] Eye Pain Social History Tobacco Use Types [...] on filedocumented in this encounter Care Teams Aed Trainer Relationship Specialty Start Date End Date Ej Duran MD [address] [place] [address] PCP - General 10/28/11 06/04/18 documented as of this encounter
--- OUTSIDE RECORDS SUMMARY | 2023-12-31 17:06 | XMS_ITS | Encounter Summary ---
Author Organization [facility] [place] [address] Care Team Providers Care Taker Out Name Role Phone Ej Duran MD Primary Care Provider [phone] Reason for Visit * Reason Comments Blurred Vision Patient presents for postoperative evaluation. CBC in Encounter Details Date Type Department Care Team (Late st Contact Info) Description 09/12/2012 3:45 PM EDT Office [place] [address] Matteo Diane MD [facility] [address] [place] [address] Proliferative diabetic retinopathy, both eyes (Primary Dx); [...] glaucoma documented in this encounter Care Teams Taker Out Relationship Specialty Start Date End Date Ej Duran MD [address] [place] [address] PCP - General 10/28/11 06/04/18 documented as of this encounter
--- OUTSIDE RECORDS SUMMARY | 2023-12-31 17:06 | XMS_ITS | Encounter Summary ---
Author Organization [facility] [place] [address] Care Team Providers Care Fish House Worker Name Role Phone Ej Duran MD Primary Care Provider [phone] Reason for Visit * Reason Comments Blurred Vision The patient presents for postoperative evaluation of the right eye. ESTRELLA Hardy Encounter Details Date Type Department Care Team (Late st Contact Info) Description 10/10/2012 1:00 PM EDT Office [place] [address] Matteo Diane MD [facility] [place] [address] Vitreous hemorrhage, right eye (Primary Dx); Proliferative [...] glaucoma documented in this encounter Care Teams Fish House Worker Relationship Specialty Start Date End Date Ej Duran MD [address] [place] [address] PCP - General 10/28/11 06/04/18 documented as of this encounter
--- OUTSIDE RECORDS SUMMARY | 2023-12-31 17:06 | XMS_ITS | Encounter Summary ---
Author Organization [facility] [place] [address] Care Team Providers Care Sheet Taker Name Role Phone Ej Duran MD Primary Care Provider [phone] Encounter Details Date Type Department Care Team (Late st Contact Info) Description 07/31/2012 6:07 AM EDT - 07/31/2012 9:35 AM EDT Hospital En[place] [address] Ruthann Beckett MD [facility] [address] Discharge Disposition: Home Social History Tobacco Use [...] all eye drops to tomorrow's appointment. Call [phone] for all questions concerns. Right side down [...] Beckett MD - 07/31/2012 9:00 AM EDT [facility] [place] Patient Name: Maurice Rudolph : [id number] MR#: [id number] Case Date: 07/31/2012 Surgeon: Surgeon(s) and Role: [...] at this time. Please note also the rlsikvld-vv-lmxlidli time was from 7:55 a.m. exactly until 8:55 a.m. The patient will return here postoperative day #1. He is to lie on the right side. Airway safety and venous thrombosis prevention measures will be reviewed again in the postoperative setting. He is to call the eye physician production manufacturing worker the overnight period if there are [...] Operative Note Patient Name: Maurice Rudolph : [id number] MR#: [id number] Case Date: 07/31/2012 Surgeon: Surgeon(s) and Role: [...] * POCT Glucose (07/31/2012 9:09 AM EDT) [facility] Glucose, POC 181 60 - 199 mg/dL [facility] Comment: Supplemental ranges: <110 mg/dL before meals [...] CARE T EST ORDERABLES Performing Organization Address City/[facility] Co de Phone Number BERHANE CASTRO [...] Beckett MD - Comment: mixed with bupivacaine) hhwpzqqi-fymiswihy-xnnultrrydso e (DEXACINE) 3.5-10,000-0.1 mg-unit/g-% ophthalmic ointment (CANCELED) [...] cefazolin) documented in this encounter Care Teams Sheet Taker Relationship Specialty Start Date End Date Ej Duran MD [address] [place] [address] PCP - General 10/28/11 06/04/18 documented as of this encounter
--- OUTSIDE RECORDS SUMMARY | 2023-12-31 17:06 | XMS_ITS | Encounter Summary ---
[place] [address] Care Team Providers Care Service Correspondent Name Role Phone Ej Duran MD Primary Care Provider [phone] Reason for Visit * Reason Comments Procedure YAG CAP OS Encounter Details Date Type Department Care Team (Latest Contact Info) Description 11/15/2013 12:30 PM EDT Procedure [place] [address] Erasmo Bajwa MD [facility] [place] [place] [address] PCO (posterior capsular opacification), left (Primary Dx) [...] unspecified documented in this encounter Care Teams Service Correspondent Relationship Specialty Start Date End Date Ej Duran MD [address] [place] [address] PCP - General 10/28/11 06/04/18 documented as of this encounter
--- OUTSIDE RECORDS SUMMARY | 2023-12-31 17:06 | XMS_ITS | Encounter Summary ---
Author Organization [facility] [place] [address] Care Team Providers Care Configuration Management Specialist Name Role Phone Ej Duran MD Primary Care Provider [phone] Reason for Visit * Reason Comments Post Op Encounter Details Date Type Department Care Team (Late st Contact Info) Description 08/22/2012 3:45 PM EDT Office [place] [address] Matteo Diane MD [facility] [place] [address] Acute angle-closure glaucoma of right eye (Primary [...] Hypermetropia documented in this encounter Care Teams Configuration Management Specialist Relationship Specialty Start Date End Date Ej Duran MD [address] [place] [address] PCP - General 10/28/11 06/04/18 documented as of this encounter
--- OUTSIDE RECORDS SUMMARY | 2023-12-31 17:06 | XMS_ITS | Encounter Summary ---
Author Organization [facility] [place] [address] Care Team Providers Care Electronics Technician Name Role Phone Ej Duran MD Primary Care Provider [phone] Reason for Visit * Reason Comments Eye Pain 1 month follow up on eye pain OD Encounter Details Date Type Department Care Team (Late st Contact Info) Description 03/27/2013 1:15 PM EST Office [place] [address] Matteo Diane MD [facility] [place] [address] Hyperopia (Primary Dx) Discharge Disposition: Home Social [...] Hypermetropia documented in this encounter Care Teams Electronics Technician Relationship Specialty Start Date End Date Ej Duran MD [address] [place] [address] PCP - General 10/28/11 06/04/18 documented as of this encounter
--- OUTSIDE RECORDS SUMMARY | 2023-12-31 17:06 | XMS_ITS | Encounter Summary ---
Author Organization [facility] [place] [place] [address] Care Team Providers Care Waste Recycler Name Role Phone Ej Duran MD Primary Care Provider [phone] Reason for Visit * Reason Comments Detached Retina OD 2 day IOP check Encounter Details Date Type Department Care Team (Late st Contact Info) Description 08/03/2012 1:00 PM EDT Office [place] [address] Matteo Diane MD [facility] [place] [address] ACG (angle-closure glaucoma) (Primary Dx); Proliferative diabetic [...] glaucoma documented in this encounter Care Teams Waste Recycler Relationship Specialty Start Date End Date Ej Duran MD [address] [place] [address] PCP - General 10/28/11 06/04/18 documented as of this encounter
--- OUTSIDE RECORDS SUMMARY | 2023-12-31 17:06 | XMS_ITS | Encounter Summary ---
Author Organization [facility] [place] [address] Care Team Providers Care Paper Bag Making Machinist Name Role Phone Ej Duran MD Primary Care Provider [phone] Encounter Details Date Type Department Care Team (Late st Contact Info) Description 01/08/2013 6:08 AM EDT - 01/08/2013 11:34 AM EDT Hospital Encounter [place] [address] Ruthann Beckett MD [facility] [place] [address] Discharge Disposition: Home Social History Tobacco Use [...] all eye drops to tomorrow's appointment. Call [phone] for all questions concerns. Left side down [...] of this encounter Progress Notes * Yashira Lia RN - 01/08/2013 10:32 AM EDT 1020 [...] Operative Note Patient Name: Maurice Rudolph : [id number] MR#: [id number] Case Date: 01/08/2013 Surgeon: Surgeon(s) and Role: * Ruthann Beckett MD - Primary * Lesli Vo PA - Physician Color Technician 8:10-9:38=1h 28m SURGICAL STAFF/ASSISTANTS RUTHANN Giordano. Neo [...] capsulectomy with lysis of iris adhesions with oriental orthodox of normal configuration of pupil. OPERATIVE INDICATIONS: [...] and fibrosis was easily dissected with good oriental orthodox of pupil margin contour. This now provided [...] Operative Note Patient Name: Maurice Rudolph : [id number] MR#: [id number] Case Date: 01/08/2013 Surgeon: Surgeon(s) and Role: * Ruthann Beckett MD - Primary * Lesli Vo PA - Physician Color Technician Preoperative diagnosis: RETINAL DETACHMENT Postoperative diagnosis: [...] Glucose, POC 111 60 - 199 mg/dL [facility] Comment: Supplemental ranges: <110 mg/dL before meals <200 mg/dL all other times of the day Blood specimen (specimen) 01/08/2013 9:58 AM EDT 01/08/2013 9:58 AM EDT Ruthann Beckett MD POINT OF CARE T EST ORDERABLES Performing Organization Address [facility] [[email or web address]] Co de Phone Number [facility] * POCT Glucose (01/08/2013 7:19 AM EDT) Glucose, POC 119 60 - 199 mg/dL [facility] Comment: Supplemental ranges: <110 mg/dL before meals <200 mg/dL all other times of the day Blood specimen (specimen) 01/08/2013 7:19 AM EDT 01/08/2013 7:19 AM EDT Ruthann Beckett MD POINT OF CARE T EST ORDERABLES Performing Organization Address [facility] [[email or web address]] Co de Phone Number [facility] documented in this encounter Visit [...] (Given - Provid er: Ruthann Beckett MD) xcsalbfo-wcikluykq-hdlkbnobdngi e (DEXACINE) 3.5-10,000-0.1 mg-unit/g-% ophthalmic ointment (CANCELED) [...] RN) documented in this encounter Care Teams Paper Bag Making Machinist Relationship Specialty Start Date End Date Ej Duran MD [address] [place] [address] PCP - General 10/28/11 06/04/18 documented as of this encounter
--- OUTSIDE RECORDS SUMMARY | 2023-12-31 17:06 | XMS_ITS | Encounter Summary ---
Author Organization [facility] [place] [place] [address] Care Team Providers Care Facilities Operator Name Role Phone Ej Duran MD Primary Care Provider [phone] Reason for Visit * Reason Comments PDR 4 wk f/u Encounter Details Date Type Department Care Team (Late st Contact Info) Description 06/12/2013 2:45 PM EST Follow-[place] [address] Matteo Diane MD [facility] [place] [address] Hyperopia, bilateral; Proliferative diabetic retinopathy, both eyes, [...] hypertension documented in this encounter Care Teams Facilities Operator Relationship Specialty Start Date End Date Ej Duran MD [address] [place] [address] PCP - General 10/28/11 06/04/18 documented as of this encounter
--- OUTSIDE RECORDS SUMMARY | 2023-12-31 17:06 | XMS_ITS | Encounter Summary ---
Author Organization [facility] [place] [address] Care Team Providers Care Ship Yard Electrical Person Name Role Phone Ej Duran MD Primary Care Provider [phone] Reason for Visit * Reason Comments Blurred Vision Patient presents for postoperative evaluation of each eye. ESTRELLA Hardy Encounter Details Date Type Department Care Team (Late st Contact Info) Description 12/19/2012 3:45 PM EDT [place] [address] Matteo Diane MD [facility] DR 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 [place] [address] RE: Maurice Rudolph A#: [id number] Duran: I had the pleasure [...] way to reach me is through my assistant director of security at [phone]. Respectfully, Matteo Diane MD documented in this [...] uncontrolled documented in this encounter Care Teams Ship Yard Electrical Person Relationship Specialty Start Date End Date Ej Duran MD [address] [place] [address] PCP - General 10/28/11 06/04/18 documented as of this encounter
--- OUTSIDE RECORDS SUMMARY | 2023-12-31 17:06 | XMS_ITS | Encounter Summary ---
Author [place] [address] Care Team Providers Care Shake Loader Name Role Phone Ej Duran MD Primary Care Provider [phone] Encounter Details Date Type Department Care Team (Late st Contact Info) Description 05/15/2018 Telephone [place] [address] Tamar Smith RN Social History Tobacco Use [...] by Erasmo Bajwa MD at [facility] OSC ??? PRO REMV CATARACT EXTRACAP,INSERT LENS,COMP 07/18/2012 ? ? PRO REPAIR COMPLEX RETINA DETACH VITRECTOMY & MEMB PEEL 04/03/2012, 04/03/12 REPAIR COMPLEX RETINAL DETACHMENT, W/ VITRECTOMY, MEMBRANE PEELING performed by Matteo Diane MD at [facility] MAIN OR ? ? PRO REPAIR COMPLEX RETINA DETACH VITRECTOMY & MEMB PEEL 07/31/2012 REPAIR COMPLEX RETINAL DETACHMENT, W/ VITRECTOMY, MEMBRANE PEELING performed by Matteo Diane MD at [facility] MAIN OR ? ? PRO REPAIR COMPLEX RETINA DETACH VITRECTOMY & MEMB PEEL 01/08/2013 REPAIR COMPLEX RETINAL DETACHMENT, W/ VITRECTOMY, MEMBRANE PEELING performed by Matteo Diane MD at [facility] MAIN OR ??? PRO TX EXTENSIVE [...] on filedocumented in this encounter Care Teams Shake Loader Relationship Specialty Start Date End Date Ej Duran MD [address] [place] [address] PCP - General 10/28/11 06/04/18 documented as of this encounter
--- OUTSIDE RECORDS SUMMARY | 2023-12-31 17:06 | XMS_ITS | Encounter Summary ---
Author Organization [facility] [place] [address] Care Team Providers Care Painter Helper Spray Name Role Phone Ej Duran MD Primary Care Provider [phone] Reason for Visit * Reason Comments Post Op 1 day post op.OD () Encounter Details Date Type Department Care Team (Late st Contact Info) Description 01/09/2013 12:30 PM EDT Office [place] [address] Matteo Diane MD [facility] DR [place] [address] Proliferative diabetic retinopathy, both eyes. Status post [...] hypertension documented in this encounter Care Teams Painter Helper Spray Relationship Specialty Start Date End Date Ej Duran MD [address] [place] [address] PCP - General 10/28/11 06/04/18 documented as of this encounter
--- OUTSIDE RECORDS SUMMARY | 2023-12-31 17:06 | XMS_ITS | Encounter Summary ---
Author Organization [facility] [place] [address] Care Team Providers Care Cnc Mill Operator Name Role Phone Ej Duran MD Primary Care Provider [phone] Reason for Visit * Reason Comments Eye Problem PT STATES HERE FOR E RACHEL OF PAIN OD, Encounter Details Date Type Department Care Team (Late st Contact Info) Description 02/19/2013 2:30 PM EDT Office [place] [address] Young Duff MD [facility] DR OPHTHALMOLOGY [place] [address] Eye pain; Proliferative diabetic retinopathy, both eyes [...] for instructions. Please call the eye clinic, [phone], for any significant changes in vision, new [...] uncontrolled documented in this encounter Care Teams Cnc Mill Operator Relationship Specialty Start Date End Date Ej Duran MD [address] [place] [address] PCP - General 10/28/11 06/04/18 documented as of this encounter
--- OUTSIDE RECORDS SUMMARY | 2023-12-31 17:06 | XMS_ITS | Encounter Summary ---
Author Organization [facility] [place] [address] Care Team Providers Care Printing Table Worker Name Role Phone Ej Duran MD Primary Care Provider [phone] Reason for Visit * Reason Comments Eye Pain The patient presents for followup evaluation regarding ocular pain in the right eye. ESTRELLA Hardy Encounter Details Date Type Department Care Team (Late st Contact Info) Description 02/27/2013 2:00 PM EDT [place] [address] Matteo Diane MD [facility] [place] [address] Acute angle-closure glaucoma of right eye. History [...] uncontrolled documented in this encounter Care Teams Printing Table Worker Relationship Specialty Start Date End Date Ej Duran MD [address] [place] [address] PCP - General 10/28/11 06/04/18 documented as of this encounter
--- OUTSIDE RECORDS SUMMARY | 2023-12-31 17:06 | XMS_ITS | Encounter Summary ---
[place] [address] Care Team Providers Care Cotton Chopper Name Role Phone Ej Duran MD Primary Care Provider [phone] Encounter Details Date Type Department Care Team (Late st Contact Info) Description 05/09/2018 Abstract [place] [address] Jessica Santos Social History Tobacco Use Types [...] on filedocumented in this encounter Care Teams Cotton Chopper Relationship Specialty Start Date End Date Ej Duran MD [address] [place] [address] PCP - General 10/28/11 06/04/18 documented as of this encounter
--- OUTSIDE RECORDS SUMMARY | 2023-12-31 17:06 | XMS_ITS | Encounter Summary ---
Author Organization [facility] [place] [address] Care Team Providers Care Family Services Assistant Name Role Phone Ej Duran MD Primary Care Provider [phone] Reason for Visit * Reason Comments Post Op Pt here for POD #7 I OL:OD (07/18/12) with Dr Schwartz. Encounter Details Date Type Department Care Team (Late st Contact Info) Description 07/25/2012 12:45 PM EDT Office [place] [address] Phillip Schwartz MD [facility] [place] [address] Cataract. Dense with synechiae. Right eye. (Primary [...] cataract documented in this encounter Care Teams Family Services Assistant Relationship Specialty Start Date End Date Ej Duran MD [address] [place] [address] PCP - General 10/28/11 06/04/18 documented as of this encounter
--- OUTSIDE RECORDS SUMMARY | 2023-12-31 17:06 | XMS_ITS | Encounter Summary ---
Author Organization [facility] [place] [address] Care Team Providers Care Glass Cut Off Supervisor Name Role Phone Ej Duran MD Primary Care Provider [phone] Reason for Visit * Reason Comments Post Op Patient presents for postoperative evaluation after diabetic vitrectomy. ESTRELLA Hardy Post Op shared pt with dr. wil lawson Encounter Details Date Type Department Care Team (Late st Contact Info) Description 07/25/2012 2:00 PM EDT Office [place] [address] Matteo Diane MD [facility] [place] [address] Cataract. Dense with synechiae. Right eye. Status [...] uncontrolled documented in this encounter Care Teams Glass Cut Off Supervisor Relationship Specialty Start Date End Date Ej Duran MD [address] [place] [address] PCP - General 10/28/11 06/04/18 documented as of this encounter
--- OUTSIDE RECORDS SUMMARY | 2023-12-31 17:06 | XMS_ITS | Encounter Summary ---
Author Organization [facility] [place] [address] Care Team Providers Care Cremator Name Role Phone Ej Duran MD Primary Care Provider [phone] Encounter Details Date Type Department Care Team (Late st Contact Info) Description 07/31/2012 7:26 AM EDT Anesthesia Event [place] [address] Giovanni Sykes MD [facility] DR [place] [address] Carmelina Carnes CRNA [facility] [place] [address] Anesthesia Record Procedure Summary Procedure Name Responsible [...] performed by Matteo Diane MD at [facility] MAIN OR ??? Peripheral iridotomy [...] COMPLEX performed by Phillip Schwartz MD at [facility] OSC ??? Vitrectomy, w/ membrane [...] risks discussed with patient. Plan discussed with BUSINESS ANALYSIS PROFESSIONAL. Keshawn. Assessment: documented in this encounter Plan [...] mL documented in this encounter Care Teams Cremator Relationship Specialty Start Date End Date Ej Duran MD [address] [place] [address] PCP - General 10/28/11 06/04/18 documented as of this encounter
--- OUTSIDE RECORDS SUMMARY | 2023-12-31 17:06 | XMS_ITS | Encounter Summary ---
Author Organization [facility] [place] [address] Care Team Providers Care Proof Reader Name Role Phone Ej Duran MD Primary Care Provider [phone] Reason for Visit * Reason Comments Post Op [address] re pair Encounter Details Date Type Department Care Team (Late st Contact Info) Description 01/15/2013 11:15 AM EDT [place] [address] Matteo Diane MD [facility] DR [place] [address] Acute angle-closure glaucoma of right eye; Diabetes [...] uncontrolled documented in this encounter Care Teams Proof Reader Relationship Specialty Start Date End Date Ej Duran MD [address] [place] [address] PCP - General 10/28/11 06/04/18 documented as of this encounter
--- OUTSIDE RECORDS SUMMARY | 2023-12-31 17:06 | XMS_ITS | Encounter Summary ---
Author Organization [facility] [place] [address] Care Team Providers Care Tape Control Skin Or Spar Mill Operator Name Role Phone Ej Duran MD Primary Care Provider [phone] Reason for Visit * Reason Comments Decreased Visual Acuity Sent by Dr. Jaden velez to evaluate need for possible YAG Capsulotomy OS Encounter Details Date Type Department Care Team ([facility] st Contact Info) Description 10/03/2013 3:45 PM EDT [place] [address] Erasmo Bajwa MD [facility] [place] [address] PCO (posterior capsular opacification), left (Primary Dx); [...] means documented in this encounter Care Teams Tape Control Skin Or Spar Mill Operator Relationship Specialty Start Date End Date Ej Duran MD [address] [place] [address] PCP - General 10/28/11 06/04/18 documented as of this encounter
--- OUTSIDE RECORDS SUMMARY | 2023-12-31 17:06 | XMS_ITS | Encounter Summary ---
Author Organization [facility] [place] [address] Care Team Providers Care Geoint Analyst Name Role Phone Ej Duran MD Primary Care Provider [phone] Encounter Details Date Type Department Care Team (Late st Contact Info) Description 11/29/2012 12:11 PM EDT Anesthesia Event [place] [address] Kim Ellis MD [facility] DR [place] [address] Ruddy Foy MD [facility] DR OUTPATIENT [place] [address] Anesthesia Record Procedure Summary Procedure Name Responsible [...] PEELING performed by Matteo Diane MD at [facility] MAIN OR ??? Peripheral iridotomy 04/06/2012 [...] COMPLEX performed by Phillip Schwartz MD at [facility] OSC ??? Vitrectomy, w/ membrane stripping 04/03/2012 OD, CBC ? ? Repair complex retina detach vitrectomy & memb peel 07/31/2012 REPAIR COMPLEX RETINAL DETACHMENT, W/ VITRECTOMY, MEMBRANE PEELING performed by Matteo Diane MD at [facility] MAIN OR Got 40-60 mg of propofol [...] Assessment: Rhythm: regular Pulmonary Assessment: Dental Assessment: [facility] Assessment: Other exam findings: Dentures Mustache / [...] risks discussed with patient. Plan discussed with POLLUTION CONTROL ENGINEER. [facility] Assessment: documented in this encounter Plan of [...] mL documented in this encounter Care Teams Geoint Analyst Relationship Specialty Start Date End Date Ej Duran MD [address] [place] [address] PCP - General 10/28/11 06/04/18 documented as of this encounter
--- OUTSIDE RECORDS SUMMARY | 2023-12-31 17:06 | XMS_ITS | Encounter Summary ---
Author Organization [facility] [place] [address] Care Team Providers Care Agriculture Consultant Name Role Phone Ej Duran MD Primary Care Provider [phone] Reason for Visit * Reason Onset Date Comments Medication Refill 12/01/2012 pt stated he l ost the drops with the mabry cap Encounter Details Date Type Department Care Team (Late st Contact Info) Description 12/01/2012 [place] [address] Erasmo Bajwa MD [facility] [place] [address] Pseudophakia (Primary Dx) Social History Tobacco Use [...] means documented in this encounter Care Teams Agriculture Consultant Relationship Specialty Start Date End Date Ej Duran MD [address] [place] [address] PCP - General 10/28/11 06/04/18 documented as of this encounter
--- OUTSIDE RECORDS SUMMARY | 2023-12-31 17:06 | XMS_ITS | Encounter Summary ---
Author Organization [facility] [place] [address] Care Team Providers Care Digital Experience Manager Name Role Phone Ej Duran MD Primary Care Provider [phone] Encounter Details Date Type Department Care Team (Latest Contact Info) Description 11/29/2012 10:18 AM EDT - 11/29/2012 12:58 PM EDT Hospital Encounter [place] [address] Gabe Bajwa MD [facility] [place] [address] Cataract (Primary Dx) Discharge Disposition: Home Social [...] or additional concerns or questions please call: [phone] 8am to5pm. After 5pm, please call [phone] and ask for opthalmology MD manager of organizational development. documented in this encounter Medications at Time [...] operative team. Monitors were placed by the lending advisor. Topical anaesthetic was placed in the left [...] emulsified with the phacoemulsification handpiece in a [id number] fashion. Residual cortical material was removed with the automated irrigation/aspiration unit. The posterior capsule was polished. The capsular bag was inflated with viscoelastic. An Olayinka Model [id number] posterior chamber lens with a 6mm acrylic optic was inspected and found to be without defects, placed in the [place] II make up artist cartridge, and injected into the capsular bag [...] RN) documented in this encounter Care Teams Digital Experience Manager Relationship Specialty Start Date End Date Ej Duran MD [address] [place] [address] PCP - General 10/28/11 06/04/18 documented as of this encounter
--- OUTSIDE RECORDS SUMMARY | 2023-12-31 17:06 | XMS_ITS | Encounter Summary ---
Author Organization [facility] [place] [address] Care Team Providers Care Risk Adjustment Specialist Name Role Phone Ej Duran MD Primary Care Provider [phone] Reason for Visit * Reason Comments PDR Patient presents for followup evaluation for severe proliferative diabetic retinopathy in each eye. CBC Encounter Details Date Type Department Care Team (Late st Contact Info) Description 12/05/2012 2:45 PM EDT Follow-[place] [address] Matteo Diane MD [facility] [place] [address] Acute angle-closure glaucoma of right eye (Primary [...] uncontrolled documented in this encounter Care Teams Risk Adjustment Specialist Relationship Specialty Start Date End Date Ej Duran MD [address] [place] [address] PCP - General 10/28/11 06/04/18 documented as of this encounter
--- OUTSIDE RECORDS SUMMARY | 2023-12-31 17:06 | XMS_ITS | Encounter Summary ---
Author Organization [facility] [place] [address] Care Team Providers Care Marketing Technology Specialist Name Role Phone Ej Duran MD Primary Care Provider [phone] Reason for Visit * Reason Comments Blurred Vision Patient presents for postoperative evaluation after complex vitrectomy right eye. Indicates his vision in the right eye is stable but perhaps worse at night. Vision in the left eye is also becoming worse. Matteo Diane M.D. Encounter Details Date Type Department Care Team (Late Contact [facility]) Description 10/31/2012 12:45 PM EDT [place] [address] Matteo Diane MD [facility] [place] [address] Proliferative diabetic retinopathy, both eyes. Severe and [...] EDT November 01, 2012 Erasmo Bajwa M.D. [address] [place] [address], [place] [address] Dear Erasmo, I would like to introduce [...] cataract documented in this encounter Care Teams Marketing Technology Specialist Relationship Specialty Start Date End Date Ej Duran MD [address] [place] [address] PCP - General 10/28/11 06/04/18 documented as of this encounter
--- OUTSIDE RECORDS SUMMARY | 2023-12-31 17:06 | XMS_ITS | Encounter Summary ---
[place] [address] Care Team Providers Care Pack Out Operator Name Role Phone jE Duran MD Primary Care Provider [phone] Reason for Visit * Reason Onset Date Comments Questions 03/01/2013 Encounter Details Date Type Department Care Team (Late st Contact Info) Description 03/01/2013 Telephone [place] [address] Matteo Diane MD [facility] [place] [address] Questions Social History Tobacco Use Types Packs/Day [...] checking on prior authorization [facility] [place] [facility]ed request today. Advised patient, will forward to Dr. Diane's statistical assistant for follow up * Telephone Encounter - Maddy West - 03/01/2013 1:55 PM EDT Maurice Rudolph is a 52 y.o. male Patient called to check to see if we have received the prior authorization paperwork for the eyedrop (mabry top) he needs refilled at [facility] in [place], [place] [phone]; please call patient at [phone] documented in this encounter Plan of Treatment Not on file documented as of this encounter Visit Diagnoses Diagnosis Acute angle-closure glaucoma of right eye. History of angle-closure after silicone oil placement when patient was phakic. Acute angle-closure glaucoma Eye pain Pain in or around eye documented in this encounter Care Teams Pack Out Operator Relationship Specialty Start Date End Date Ej Duran MD [address] [place] [address] PCP - General 10/28/11 06/04/18 documented as of this encounter
--- OUTSIDE RECORDS SUMMARY | 2023-12-31 17:06 | XMS_ITS | Encounter Summary ---
Author Organization [facility] [place] [address] Care Team Providers Care Exterior Interior Specialist Name Role Phone Ej Duran MD Primary Care Provider [phone] Encounter Details Date Type Department Care Team (Late st Contact Info) Description 01/08/2013 7:31 AM EDT Anesthesia Event [place] [address] Alissa Muse MD [facility] [place] [address] Mariajose Wilkinson MD [facility] [place] [address] Anesthesia Record Procedure Summary Procedure Name Responsible [...] performed by Matteo Diane MD at [facility] MAIN OR ??? Peripheral iridotomy [...] performed by Matteo Diane MD at [facility] MAIN OR ??? Remv cataract extracap,insert lens,comp 07/18/2012 ??? Remv cataract extracap,insert lens 11/29/2012 CATARACT EXTRACTION, EXTRACAPSULAR, W/ LENS INSERTION performed by Erasmo Bajwa MD at [facility] OSC ??? Cataract removal 07/18/12 OD [...] discussed with patient. Plan discussed with attending. [facility]. Assessment: documented in this encounter Plan of [...] mg documented in this encounter Care Teams Exterior Interior Specialist Relationship Specialty Start Date End Date Ej Duran MD [address] [place] [address] PCP - General 10/28/11 06/04/18 documented as of this encounter
--- OUTSIDE RECORDS SUMMARY | 2023-12-31 17:06 | XMS_ITS | Encounter Summary ---
Author Organization [facility] [place] [address] Care Team Providers Care Pathology Technologist Name Role Phone Ej Duran MD Primary Care Provider [phone] Reason for Visit * Reason Comments Diabetes 1-wk f/u for PDR-OU Encounter Details Date Type Department Care Team (Late st Contact Info) Description 12/04/2013 1:00 PM EDT [place] [address] Matteo Diane MD [facility] [place] [address] Proliferative diabetic retinopathy, both eyes, type 1, [...] Next month, he will be moving to [place]. When he secures a retina specialist, he [...] Primary documented in this encounter Care Teams Pathology Technologist Relationship Specialty Start Date End Date Ej Duran MD [address] [place] [address] PCP - General 10/28/11 06/04/18 documented as of this encounter
--- OUTSIDE RECORDS SUMMARY | 2023-12-31 17:07 | XMS_ITS | Encounter Summary ---
Author Organization [facility] [place] [address] Care Team Providers Care Customer Agent Name Role Phone Ej Duran MD Primary Care Provider [phone] Reason for Visit * Reason Comments PDR Patient presents for postoperative evaluation of the right eye but notes distortion in the left eye. CBC M.D. Chronic Angle Closure Glaucoma OD Vitreous Hemorrhage OD Encounter Details Date Type Department Care Team (Late st Contact Info) Description 05/03/2012 12:45 PM EST Office [place] [address] Matteo Diane MD [facility] [place] [address] Proliferative diabetic retinopathy of both eyes. Stable [...] Diane M.D. Matteo Diane MD [facility] * FUNDUS PHOTOS - OS - [...] ESTRELLA FERRO Matteo Diane MD [facility] documented in this encounter Visit Diagnoses [...] Hypermetropia documented in this encounter Care Teams Customer Agent Relationship Specialty Start Date End Date Ej Duran MD [address] [place] [address] PCP - General 10/28/11 06/04/18 documented as of this encounter
--- OUTSIDE RECORDS SUMMARY | 2023-12-31 17:07 | XMS_ITS | Encounter Summary ---
Author Organization [facility] [place] [address] Care Team Providers Care Pharmacy Stock Clerk Name Role Phone Edi Petros SAXENA Primary Care Provider [phone] Reason for Visit * Reason Comments Blurred Vision pt did not need Lase r today-see prog. notes. Vision getting worse OD. OS better after initail laser OS CBC Encounter Details Date Type Department Care Team (Late st Contact Info) Description 07/27/2011 9:15 AM EDT Procedure [place] [address] Ruthann Beckett MD [facility] [place] [address] Diabetic retinopathy (Primary Dx); Proliferative diabetic retinopathy, [...] 9:15 AM EDT >> RUTHANN BECKETT MD [facility] Jul 27, 2011 8:16 PM OD getting [...] disturbances documented in this encounter Care Teams Pharmacy Stock Clerk Relationship Specialty Start Date End Date Petros Daley DO [address] [place] [address] PCP - General 06/15/11 10/27/11 documented as of this encounter
--- OUTSIDE RECORDS SUMMARY | 2023-12-31 17:07 | XMS_ITS | Encounter Summary ---
Author Organization [facility] [place] [address] Care Team Providers Care Sports Instructor Name Role Phone Petros Daley DO Primary Care Provider Reason for Visit * Reason Comments Diabetes Pt sent by Optical E xpressions for proliferative diabetic retinopathy and vitreous hemorrhage OD Encounter Details Date Type Department Care Team (Late st Contact Info) Description 06/15/2011 10:00 AM EST Office [place] [address] Matteo Diane MD [facility] [place] [address] Diabetes mellitus (Primary Dx); Proliferative diabetic retinopathy, [...] hemorrhage documented in this encounter Care Teams Sports Instructor Relationship Specialty Start Date End Date Petros Daley DO [address] [facility] [place] [address] PCP - General 06/15/11 10/27/11 documented as of this encounter
--- OUTSIDE RECORDS SUMMARY | 2023-12-31 17:07 | XMS_ITS | Encounter Summary ---
Author Organization [facility] [place] [place] [address] Care Team Providers Care Varnish Dipper Name Role Phone Edi Petros SAXENA Primary Care Provider [phone] Reason for Visit * Reason Comments Procedure PRP OD (possibly OS) // Definitely OS given VH density OD CBC MD Encounter Details Date Type Department Care Team (Late st Contact Info) Description 07/06/2011 7:45 AM EST Procedure [place] [address] Ruthann Beckett MD [facility] [place] [address] Diabetes mellitus (Primary Dx); Blurred vision; Vitreous [...] uncontrolled documented in this encounter Care Teams Varnish Dipper Relationship Specialty Start Date End Date Petros Daley DO [address] [place] [address] PCP - General 06/15/11 10/27/11 documented as of this encounter
--- OUTSIDE RECORDS SUMMARY | 2023-12-31 17:07 | XMS_ITS ---
[place] [address] Care Team Providers Care Decay Control Operator Name Role Phone Kimani Leger MD Primary Care Provider [phone] Transplant Episode Kidney Candidate [facility] ([place], [place]) [facility] Evaluation began on 06/08/2018 Marked as Not a Candidate on 08/09/2018 Reason: Unable to Contact Patient Kidney CoordinatorCherelle Colvin RN Phone: N/A Fax: N/A Email: N/A Scores Score Value Updated Exceptions/Reas ons CPRA Not available EPTS (Calc) 94 12/31/2023 [facility] Organ Diagnosis Organ Primary Contributory Kidney Diabetes Mellitus - Type I Care Team Name Role Phone Fax Email Cherelle Colvin RN Kidney Coordinator N/A N/A N/A Too Morgan MD Referring Physician N/A N/A N/A Ana Hernández Real Estate Consultant N/A N/A N/A Merlene Ferro RD Registered Dietitian N/A N/A N/A Ines Nye MSW High School Social Studies Teacher N/A N/A N/A Young Watts MD Transplant Physician N/A N/A N/A Events Pre-Transplant Referred: 05/09/2018 Evaluation began: 06/08/2018 Committee: 06/14/2018 Dialysis History Dialysis History Start End Type Comments Center 02/15/2017 In-center Hemodialysis Donnie [facility] Center Information Center Phone Fax Address [facility] [phone] [place] [address]
--- OUTSIDE RECORDS SUMMARY | 2023-12-31 17:07 | XMS_ITS | Encounter Summary ---
Author Organization Formerly [facility] [place] [address] Care Team Providers Care Pattern Duplicator Name Role Phone Ej Duran MD Primary Care Provider [phone] Encounter Details Date Type Department Care Team (Late st Contact Info) Description 04/03/2012 7:54 AM EST - 04/03/2012 3:13 PM [facility] Hospital [place] [address] Ruthann Augustin MD [facility] [place] [address] Discharge Disposition: Home Social History Tobacco Use [...] have additional concerns or questions please call. [phone]. If after hours please call [phone] for the ophthalogy doctor front counter clerk. [address] ??? [place] [address] ??? [phone] ??? [email or web address] ??? [facility] ??? [facility] ??? [facility] [place], [place] * Patient Instructions* Gloria Vo PA - 04/03/2012 12:24 PM EST Please keep patch and shield on operated eye until follow up appointment tomorrow. Ice packs over patch and shield as needed for pain. Tylenol 500 mg every four hours as needed for pain. Please bring eye kit and all eye drops to tomorrow's appointment. Call [phone] for all questions concerns. Have patient remain [...] Augustin MD - 04/03/2012 12:30 PM EST [facility] Operative Note Patient Name: Maurice Rudolph : [id number] MR#: [id number] Case Date: 04/03/2012 Surgeon: Surgeon(s) and Role: * Ruthann Augustin MD - Primary * HERVE Edwards - Resident-Elevator Tender Preoperative diagnosis: PDR & VIT HEM Postoperative [...] Operative Note Patient Name: Maurice Rudolph : [id number] MR#: [id number] Case Date: 04/03/2012 Surgeon: Surgeon(s) and Role: * Ruthann Augustin MD - Primary * HERVE Edwards - Resident-Elevator Tender Preoperative diagnosis: PDV & VIT HEM Postoperative [...] Glucose, POC 178 60 - 199 mg/dL [facility] Comment: Supplemental ranges: <110 mg/dL before meals <200 mg/dL all other times of the day Blood specimen (specimen) 04/03/2012 1:04 PM EST 04/03/2012 1:04 PM EST Ruthann Augustin MD POINT OF CARE T EST ORDERABLES Performing Organization Address [facility] [[email or web address]] Co de Phone Number [facility] * POCT Glucose (04/03/2012 8:22 AM EST) Glucose, POC 152 60 - 199 mg/dL [facility] Comment: Supplemental ranges: <110 mg/dL before meals <200 mg/dL all other times of the day Blood specimen (specimen) 04/03/2012 8:22 AM EST 04/03/2012 8:22 AM EST Ruthann Augustin MD POINT OF CARE T EST ORDERABLES Performing Organization Address [facility] [[email or web address]] Co de Phone Number [facility] documented in this encounter Visit Diagnoses Not [...] Nettie Bailey RN)[phone] (Given - Provider: Nettie Baliey RN)[phone] (Given - Provider: Nettie Bailey RN) [...] Ruthann Augustin MD - Comment: post op) nkyvqstw-albzictuy-vikphmjpos one (DEXACINE) 3.5-10,000-0.1 mg-unit/g-% ophthalmic ointment (CANCELED) [...] cefazolin) documented in this encounter Care Teams Pattern Duplicator Relationship Specialty Start Date End Date Ej Duran MD [address] [place] [address] PCP - General 10/28/11 06/04/18 documented as of this encounter
--- OUTSIDE RECORDS SUMMARY | 2023-12-31 17:07 | XMS_ITS | Encounter Summary ---
Author Organization [facility] Address [address] [place] [address] Care Team Providers Care Health Safety Manager Name Role Phone Sanjay AriannaJarad barrientos Maeve DNP Primary Care Provider [phone] Encounter Details Date Type Department Care Team (Late st Contact Info) Description 07/31/2021 Lab Requisition [facility] Pathology & Laboratory Medicine - [facility] [address] [place] [address] Outr Resulting Lab, Provider Social History Tobacco [...] C Antibody Negative Negative 08/03/2021 9:53 EDT [facility] Blood VENOUS BLOOD / Unknown 07/31/2021 10:10 EDT 07/31/2021 21:21 EDT Provider Outr Resulting Lab CHEMISTRY & BLOOD GAS ORDERABLES [facility] [address] [place] [address] documented in this encounter Visit Diagnoses Not on filedocumented in this encounter Care Teams Health Safety Manager Relationship Specialty Start Date End Date Jarad Iglesias, [place] [address] PCP - General 10/12/18 documented as of this encounter
--- OUTSIDE RECORDS SUMMARY | 2023-12-31 17:07 | XMS_ITS | Encounter Summary ---
Author Organization Formerly [facility] [place] [address] Care Team Providers Care Administration Intern Name Role Phone Ej Duran MD Primary Care Provider [phone] Reason for Visit * Reason Comments Glaucoma 2 wk ck Encounter Details Date Type Department Care Team (Late st Contact Info) Description 06/26/2012 3:45 PM EST Office [place] [address] Lisette Schwartz MD [facility] [place] [address] Cataract. Dense with synechiae. Right eye. (Primary [...] glaucoma documented in this encounter Care Teams Administration Intern Relationship Specialty Start Date End Date Ej Duran MD [address] [place] [address] PCP - General 10/28/11 06/04/18 documented as of this encounter
--- OUTSIDE RECORDS SUMMARY | 2023-12-31 17:07 | XMS_ITS | Encounter Summary ---
Author Organization [facility] [place] [address] Care Team Providers Care Mold Yard Worker Name Role Phone Ej Duran MD Primary Care Provider [phone] Encounter Details Date Type Department Care Team (Late st Contact Info) Description 07/18/2012 7:23 AM EDT Anesthesia Event [place] [address] Maria Isabel Benton MD [facility] [place] [address] Sharla Scanlon CRNA [facility] [place] [address] Anesthesia Record Procedure Summary Procedure Name Responsible [...] performed by Matteo Diane MD at [facility] MAIN OR ??? Peripheral iridotomy 04/06/2012 [...] consented to blood products. Plan discussed with [MEDICAL SALES REPRESENTATIVE Misc. Assessment: documented in this encounter Miscellaneous Notes * Addendum Note - Maddy Cortez - 07/19/2012 10:35 AM EDT Addendum created 07/19/12 1035 by Maddy Cortez Modules edited:Anesthesia Events, Anesthesia Responsible Staff, SmartForms SmartFormsVN Section for SmartForms 266 documented in this encounter Plan of Treatment Not on file documented as of this encounter Visit Diagnoses Not on filedocumented in this encounter Care Teams Mold Yard Worker Relationship Specialty Start Date End Date Ej Duran MD [address] [place] [address] PCP - General 10/28/11 06/04/18 documented as of this encounter
--- OUTSIDE RECORDS SUMMARY | 2023-12-31 17:07 | XMS_ITS | Encounter Summary ---
Author Organization [facility] [place] [place] [address] Care Team Providers Care Physician Practice Consultant Name Role Phone Ej Duran MD Primary Care Provider [phone] Reason for Visit * Reason Onset Date Comments Eye Problem 12/03/2011 Few months ago p atient had OS laser treatment. Having dull pain but can't see. Like looking through a thick fog. Can only make out shapes. Encounter Details Date Type Department Care Team ([facility] Contact Info) Description 12/03/2011 [place] [address] Matteo Diane MD [facility] [address] [place] [address] Eye Problem (Few months ago patient had [...] on filedocumented in this encounter Care Teams Physician Practice Consultant Relationship Specialty Start Date End Date Ej Duran MD [address] [place] [address] PCP - General 10/28/11 06/04/18 documented as of this encounter
--- OUTSIDE RECORDS SUMMARY | 2023-12-31 17:07 | XMS_ITS | Encounter Summary ---
[place] [address] Care Team Providers Care Tool Filer Name Role Phone Ej Duran MD Primary Care Provider [phone] Encounter Details Date Type Department Care Team (Late st Contact Info) Description 04/03/2012 9:33 AM EST Anesthesia Event [place] [address] Marquise Garcia MD [facility] [place] [address] Anesthesia Record Procedure Summary Procedure Name Responsible [...] risks discussed with patient. Plan discussed with CARBON CLEANER. [facility] Assessment: documented in this encounter Miscellaneous Notes * Addendum Note - Adilene Kelsey - 04/04/2012 10:34 AM EST Addendum created 04/04/12 1034 by Adilene Kelsey Modules edited:Anesthesia Events, Anesthesia Responsible Staff, SmartForms SmartFormsVN Section for SmartForms 266 documented in this encounter Plan of Treatment Not on file documented as of this encounter Visit Diagnoses Not on filedocumented in this encounter Care Teams Tool Filer Relationship Specialty Start Date End Date Ej Duran MD [address] [place] [address] PCP - General 10/28/11 06/04/18 documented as of this encounter
--- OUTSIDE RECORDS SUMMARY | 2023-12-31 17:07 | XMS_ITS | Referral Summary ---
Author Organization [facility] Address [address] [place] [address] Care Team Providers Care Construction Driller Name Role Phone Sanjay AriannaJarad barrientos Maeve DNP Primary Care Provider [phone] Encounters Date Type Department Care Team Description 12/28/2023 19:36 EDT - 12/28/2023 23:59 EDT Hospital Encounter [facility] [place] Arrived Discharge Disposition: Home or Self Care 12/28/2023 19:36 EDT - 12/28/2023 23:59 EDT Hospital Encounter [facility] [place] Arrived Discharge Disposition: Home or Self Care from Last 3 Months Allergies No known active allergies Medications Medication [...] Take 0.75 mcg by mouth every , Th, Sat (Dialysis). Active mv,Ke-XJ-H8-OM-3-dha- epa-fish (PRORENAL QD) 400-500 mcg-unit capsule Take [...] Cellulitis 10/12/2018 ESRD (end stage renal disease) ([facility]) 019 Social History Tobacco Use Types Packs/Day [...] Procedure Name Priority Date/Time Associated Diagnosis Comments CT OUTSIDE IMAGES RIGHT LOWER EXTREMITY Routine 12/28/2023 19:36 EDT XR OUTSIDE IMAGES RIGHT LOWER EXTREMITY Routine 12/28/2023 19:36 EDT HEPATITIS C AB W REFLEX TO HCV RNA BY PCR Routine 07/31/2021 10:10 EDT from Last 3 Months or Most Recently Relevant to Health Maintenance Results * CT OUTSIDE IMAGES RIGHT LOWER EXTREMITY (12/28/2023 19:36 EDT) Narrative 12/28/2023 19:36 EDT This is a non-reportable exam. Provider Unknown MD SHAFFER OTHER IMAGING OR DERABLES * XR OUTSIDE IMAGES RIGHT LOWER EXTREMITY (12/28/2023 19:36 EDT) Narrative 12/28/2023 19:36 EDT This is a non-reportable exam. Provider Unknown IMG OTHER IMAGING OR DERABLES * HEPATITIS C AB W REFLEX TO HCV RNA BY PCR (07/31/2021 10:10 EDT) Hep C Antibody Negative Negative 08/03/2021 9:53 EDT [facility] Blood VENOUS BLOOD / Unknown 07/31/2021 10:10 EDT 07/31/2021 21:21 EDT Provider Outr Resulting Lab CHEMISTRY & BLOOD GAS ORDERABLES [facility] [address] [place] [address] from Last 3 Months or Most Recently Relevant to Health Maintenance Advance Directives For more information, please contact: [phone] * Full Code (Latest Code Status on File) Date Activated Date Inactivated Comments 10/12/2018 13:48 10/14/2018 16:39 Question Answer Comments Reason for decision includes: Full code consistent with overall plan of care Who participated in the discussion? Patient Care Teams Construction Driller Relationship Specialty Start Date End Date Jarad Iglesias, DNP [address] [place] [address] [place] [address] PCP - General 10/12/18
--- OUTSIDE RECORDS SUMMARY | 2023-12-31 17:07 | XMS_ITS | Encounter Summary ---
Author Organization [facility] [place] [address] Care Team Providers Care Mill Operator Head Name Role Phone Ej Duran MD Primary Care Provider [phone] Reason for Visit * Reason Comments Post Op 1 day chk, s/p Vit/g as OD. No pain now. Level V/X pain overnight. Control. Encounter Details Date Type Department Care Team (Late st Contact Info) Description 04/04/2012 9:15 AM EST Office [place] [address] Matteo Diane MD [facility] [place] [address] Proliferative diabetic retinopathy, both eyes. Postoperative day [...] glaucoma documented in this encounter Care Teams Mill Operator Head Relationship Specialty Start Date End Date Ej Duran MD [address] [place] [address] PCP - General 10/28/11 06/04/18 documented as of this encounter
--- OUTSIDE RECORDS SUMMARY | 2023-12-31 17:07 | XMS_ITS | Encounter Summary ---
Author Organization [facility] [place] [address] Care Team Providers Care Criminal Justice Social Worker Name Role Phone Ej Duran MD Primary Care Provider [phone] Reason for Visit * Reason Comments PDR here for 2 wk kay o n PDR, here for possible PRP Encounter Details Date Type Department Care Team (Late st Contact Info) Description 12/20/2011 3:45 PM EDT Procedure visit [place] [address] Miriam Hancock MD [facility] [place] [address] PDR (proliferative diabetic retinopathy) (Primary Dx) Discharge [...] uncontrolled documented in this encounter Care Teams Criminal Justice Social Worker Relationship Specialty Start Date End Date Ej Duran MD [address] [place] [address] PCP - General 10/28/11 06/04/18 documented as of this encounter
--- OUTSIDE RECORDS SUMMARY | 2023-12-31 17:07 | XMS_ITS | Encounter Summary ---
Author Organization [facility] [place] [address] Care Team Providers Care Pharmacy Technology Instructor Name Role Phone Ej Duran MD Primary Care Provider [phone] Reason for Visit * Reason Comments Post Op 2 POD:LPI:OD for Acu te Angle Closure Encounter Details Date Type Department Care Team (Late st Contact Info) Description 04/08/2012 11:30 AM EST Office [place] [address] [facility] [place] [address] Acute angle-closure glaucoma of right eye Discharge [...] glaucoma documented in this encounter Care Teams Pharmacy Technology Instructor Relationship Specialty Start Date End Date Ej Duran MD [address] [place] [address] PCP - General 10/28/11 06/04/18 documented as of this encounter
--- OUTSIDE RECORDS SUMMARY | 2023-12-31 17:07 | XMS_ITS | Encounter Summary ---
Author Organization [facility] [place] [address] Care Team Providers Care Shop Hand Name Role Phone Ej Duran MD Primary Care Provider [phone] Reason for Visit * Reason Comments Eye Problem 5 wk ck, s/p PRP OS for Diabetic retinopathy. As reduced vision right eye and plans for vitrectomy right eye. Encounter Details Date Type Department Care Team (Late st Contact Info) Description 10/28/2011 12:45 PM EDT [place] [address] Matteo Beckett MD [facility] DR [place] [address] Blurred vision; Diabetes mellitus; Proliferative diabetic retinopathy, [...] hemorrhage documented in this encounter Care Teams Shop Hand Relationship Specialty Start Date End Date Ej Duran MD [address] [place] [address] PCP - General 10/28/11 06/04/18 documented as of this encounter
--- OUTSIDE RECORDS SUMMARY | 2023-12-31 17:07 | XMS_ITS | Encounter Summary ---
Author Organization [facility] [place] [place] [address] Care Team Providers Care Cop Breaker Name Role Phone Ej Duran MD Primary Care Provider [phone] Reason for Visit * Reason Comments Procedure vit tap to remove ga s OD Encounter Details Date Type Department Care Team (Late st Contact Info) Description 04/05/2012 12:00 PM EST Procedure [place] [address] Matteo Diane MD [facility] [place] [address] Vitreous hemorrhage, right eye; Proliferative diabetic retinopathy, [...] Diane md Matteo Diane MD OPHTHALMOLOGY S [facility] ORDERABLES documented in this encounter Visit [...] glaucoma documented in this encounter Care Teams Cop Breaker Relationship Specialty Start Date End Date Ej Duran MD [address] [place] [address] PCP - General 10/28/11 06/04/18 documented as of this encounter
--- OUTSIDE RECORDS SUMMARY | 2023-12-31 17:07 | XMS_ITS | Encounter Summary ---
Author Organization [facility] Address [address] [place] [address] Care Team Providers Care Network Architect Name Role Phone Sanjay Shaina Keller DNP Primary Care Provider [phone] Encounter Details Date Type Department Care Team (Late st Contact Info) Description 01/22/2019 Results Only [facility] [phone] Deb Echeverria MD [address] [place] [address] [address] [place], [place] [id number] Social History Tobacco Use Types Packs/Day Years [...] ? SINDI RUDOLPH ? Accession #: ? [id number] ? : ? 1960 (Age: 58) ??M [...] Smith 01/23/2019 8:57 AM End of Report [facility] 01/22/2019 17:1 4 EDT 01/22/2019 17:14 EDT Deb Echeverria MD PATHOLOGY ORDERA ROSIE [facility] [address] [place] [address] documented in this encounter Visit Diagnoses Not on filedocumented in this encounter Care Teams Network Architect Relationship Specialty Start Date End Date Shaina Iglesias, DNP [facility] [place] [address] PCP - General 10/12/18 documented as of this encounter
--- OUTSIDE RECORDS SUMMARY | 2023-12-31 17:07 | XMS_ITS | Encounter Summary ---
Author Organization [facility] [place] [address] Care Team Providers Care Grizzlyman Name Role Phone Edi Petros SAXENA Primary Care Provider [phone] Encounter Details Date Type Department Care Team (Late st Contact Info) Description 08/05/2011 11:59 PM EDT Anesthesia [place] [address] Kameron Bojorquez MD [facility] [place] [address] Darian Bañuelos MD [facility] [place] [address] Anesthesia Record Procedure Summary Procedure Name Responsible [...] on filedocumented in this encounter Care Teams Grizzlyman Relationship Specialty Start Date End Date Petros Daley DO [address] [place] [address] PCP - General 06/15/11 10/27/11 documented as of this encounter
--- OUTSIDE RECORDS SUMMARY | 2023-12-31 17:07 | XMS_ITS | Encounter Summary ---
[place] [address] Care Team Providers Care Stick Welder Name Role Phone Ej Duran MD Primary Care Provider [phone] Reason for Visit * Reason Comments Procedure Reopen LPI OD Encounter Details Date Type Department Care Team (Latest Contact Info) Description 06/06/2012 2:15 PM EST Procedure [place] [address] Phillip Schwartz MD [facility] DR [place] [address] Acute angle-closure glaucoma of right eye (Primary [...] glaucoma documented in this encounter Care Teams Stick Welder Relationship Specialty Start Date End Date Ej Duran MD [address] [place] [address] PCP - General 10/28/11 06/04/18 documented as of this encounter
--- OUTSIDE RECORDS SUMMARY | 2023-12-31 17:07 | XMS_ITS | Encounter Summary ---
Author Organization [facility] [place] [address] Care Team Providers Care Registered Client Associate Name Role Phone Ej Duran MD Primary Care Provider [phone] Reason for Visit * Reason Comments Eye Problem The patient presents for postoperative evaluation status post complex vitrectomy right eye. ESTRELLA Hardy Eye Problem Encounter Details Date Type Department Care Team (Late st Contact Info) Description 06/06/2012 1:00 PM EST Office [place] [address] Matteo Diane MD [facility] DR [place] [address] Proliferative diabetic retinopathy of both eyes. Stable [...] uncontrolled documented in this encounter Care Teams Registered Client Associate Relationship Specialty Start Date End Date Ej Duran MD [address] [place] [address] PCP - General 10/28/11 06/04/18 documented as of this encounter
--- OUTSIDE RECORDS SUMMARY | 2023-12-31 17:07 | XMS_ITS | Encounter Summary ---
[place] [address] Care Team Providers Care Box Lidder Name Role Phone Petros Daley DO Primary Care Provider Encounter Details Date Type Department Care Team (Late st Contact Info) Description 07/29/2011 Orders [place] [address] Matteo Diane MD [facility] [place] [address] Vitreous hemorrhage, right eye (Primary Dx) Social [...] hemorrhage documented in this encounter Care Teams Box Lidder Relationship Specialty Start Date End Date Petros Daley DO [address] [place] [address] PCP - General 06/15/11 10/27/11 documented as of this encounter
--- OUTSIDE RECORDS SUMMARY | 2023-12-31 17:07 | XMS_ITS | Encounter Summary ---
[place] [address] Care Team Providers Care Scrum Master Name Role Phone Ej Duran MD Primary Care Provider [phone] Reason for Visit * Reason Comments Procedure Here for fabienne MEIER CE. Encounter Details Date Type Department Care Team (Latest Contact Info) Description 06/26/2012 3:45 PM EST Clinical Support [place] [address] CLIN[address], DR MOISE Cataract (Primary Dx) Discharge [...] Procedure Name Priority Date/Time Associated Diagnosis Comments [id number]-VTNUY-YPH CALC BY LASER INTERFEROMETRY - OU - BOTH EYES Routine 06/27/2012 4:31 PM EST Cataract documented in this encounter Results * DUHYMUE-EKWTK-ZHS CALC BY LASER FOQDPPPCXLJS-AJ-LLHX EYES (06/27/2012 4:31 PM EST) Anatomical Region [...] cataract documented in this encounter Care Teams Scrum Master Relationship Specialty Start Date End Date Ej Duran MD [address] [place] [address] PCP - General 10/28/11 06/04/18 documented as of this encounter
--- OUTSIDE RECORDS SUMMARY | 2023-12-31 17:07 | XMS_ITS | Encounter Summary ---
Author Organization [facility] Address [address] [place] [address] Care Team Providers Care Rotary Engine Assembler Name Role Phone Sanjay AriannaJarad barrientos Maeve DNP Primary Care Provider [phone] Encounter Details Date Type Department Care Team (Latest Contact Info) Description 01/22/2019 12:15 EDT - 01/22/2019 23:59 EDT Hospital Encounter [address] [address] Unknown, Provider, Discharge Disposition: Home or Self [...] 1 Tab by mouth at bedtime. 10/14/2018 mv,Lk-JM-I8-RK-3-wqe-epa -fish (PRORENAL QD) 400-500 mcg-unit capsule Take [...] Code Departure Means Destination Home or Self Intermediate documented in this encounter Plan of Treatment Not on file documented as of this encounter Visit Diagnoses Not on filedocumented in this encounter Care Teams Rotary Engine Assembler Relationship Specialty Start Date End Date Jarad Iglesias, DANIKA [address] [place] [address] PCP - General 10/12/18 documented as of this encounter
--- OUTSIDE RECORDS SUMMARY | 2023-12-31 17:07 | XMS_ITS | Encounter Summary ---
Author Organization [facility] [place] [address] Care Team Providers Care Nuisance Animal Damage Control Agent Name Role Phone Ej Duran MD Primary Care Provider [phone] Reason for Visit * Reason Comments Post Op The patient percents for followup evaluation after complex vitrectomy and history of angle-closure. ESTRELLA Hardy Post Op shared pt with dr. wil lawson Encounter Details Date Type Department Care Team (Late st Contact Info) Description 06/21/2012 10:15 AM EST [place] [address] Matteo Diane MD [facility] [place] [address] Acute angle-closure glaucoma of right eye. Patency [...] June 21, 2012 RE: Maurice Rudolph A#: [id number] Dear Sergio; I would like to request [...] cataract documented in this encounter Care Teams Nuisance Animal Damage Control Agent Relationship Specialty Start Date End Date Ej Duran MD [address] [place] [address] PCP - General 10/28/11 06/04/18 documented as of this encounter
--- OUTSIDE RECORDS SUMMARY | 2023-12-31 17:07 | XMS_ITS | Encounter Summary ---
[place] [address] Care Team Providers Care Local Driver Name Role Phone Ej Duran MD Primary Care Provider [phone] Encounter Details Date Type Department Care Team (Late st Contact Info) Description 04/14/2012 4:45 PM EST Office Visit [place] [address] Matteo Diane MD [facility] [place] [address] Acute angle-closure glaucoma of right eye.stable status [...] hemorrhage documented in this encounter Care Teams Local Driver Relationship Specialty Start Date End Date Ej Duran MD [address] [place] [address] PCP - General 10/28/11 06/04/18 documented as of this encounter
--- OUTSIDE RECORDS SUMMARY | 2023-12-31 17:07 | XMS_ITS | Encounter Summary ---
Author Organization [facility] [place] [address] Care Team Providers Care Director Non Profit Name Role Phone Ej Duran MD Primary Care Provider [phone] Reason for Visit * Reason Comments Decreased Visual Acuity Pt complains of a sudden onset of decrease VA OS over the last week, seems that VA is getting worse, VA is very blurry, can not even read. Encounter Details Date Type Department Care Team (Late st Contact Info) Description 12/03/2011 10:30 AM EDT Office [place] [address] Marquise Cárdenas MD [facility] [address] 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 documented in this encounter [...] MD OPHTHALMOLOGY SERVIC ES ORDERABLES * OCT [id number] EYE (12/03/2011 4:53 PM EDT) Anatomical Region [...] uncontrolled documented in this encounter Care Teams Director Non Profit Relationship Specialty Start Date End Date Ej Duran MD [address] [place] [address] PCP - General 10/28/11 06/04/18 documented as of this encounter
--- OUTSIDE RECORDS SUMMARY | 2023-12-31 17:07 | XMS_ITS | Encounter Summary ---
Author Organization [facility] [place] [address] Care Team Providers Care Enrichment Director Name Role Phone Ej Duran MD Primary Care Provider [phone] Reason for Visit * Reason Comments Post Op tearfor management o fangle-closure Eye Exam sees OD at [facility] (?name) Encounter Details Date Type Department Care Team (Late st Contact Info) Description 04/06/2012 1:00 PM EST Office [place] [address] Matteo Diane MD [facility] [place] [address] Vitreous hemorrhage, right eye; Proliferative diabetic retinopathy, [...] glaucoma documented in this encounter Care Teams Enrichment Director Relationship Specialty Start Date End Date Ej Duran MD [address] [place] [address] PCP - General 10/28/11 06/04/18 documented as of this encounter
--- OUTSIDE RECORDS SUMMARY | 2023-12-31 17:07 | XMS_ITS | Encounter Summary ---
Author Organization [facility] [place] [address] Care Team Providers Care Soliciting Freight Agent Name Role Phone Ej Duran MD Primary Care Provider [phone] Reason for Visit * Reason Comments Eye Problem VA loss OS (see Meredith meneses notes) Encounter Details Date Type Department Care Team (Late st Contact Info) Description 12/06/2011 3:30 PM EDT Office [place] [address] Miriam Hancock MD [facility] [place] [address] PDR (proliferative diabetic retinopathy) (Primary Dx) Discharge [...] uncontrolled documented in this encounter Care Teams Soliciting Freight Agent Relationship Specialty Start Date End Date Ej Duran MD [address] [place] [address] PCP - General 10/28/11 06/04/18 documented as of this encounter
--- OUTSIDE RECORDS SUMMARY | 2023-12-31 17:07 | XMS_ITS | Encounter Summary ---
[place] [address] Care Team Providers Care Design Agent Name Role Phone Ej Duran MD Primary Care Provider [phone] Reason for Visit * Reason Comments Procedure Here for urgent LPI Encounter Details Date Type Department Care Team (Latest Contact Info) Description 04/06/2012 3:15 PM EST Procedure [place] [address] Phillip Schwartz MD [facility] [place] [address] Acute angle-closure glaucoma of right eye (Primary [...] glaucoma documented in this encounter Care Teams Design Agent Relationship Specialty Start Date End Date Ej Duran MD [address] [place] [address] PCP - General 10/28/11 06/04/18 documented as of this encounter
--- OUTSIDE RECORDS SUMMARY | 2023-12-31 17:07 | XMS_ITS | Encounter Summary ---
Author Organization [facility] Address [address] [place] [address] Care Team Providers Care Passenger Screener Name Role Phone Jarad Iglesias [facility] Primary Care Provider [phone] Reason for Referral * (Routine/Next Available) - Receiving Office to Obtain Authorization Specialty Diagnoses / Procedures Referred By Puneet hallman Referred To Contact Procedures XR OUTSIDE IMAGES RIGHT LOWER EXTREMITY Unknown, ProviderMD Referral ID Status Reason Start Date Expiration Date Visits Requested Visits Authorized [id number] Receiving Office to Obtain Authorization 12/28/2023 1 1 Reason for Visit * (Routine/Next Available) - Receiving Office to Obtain Authorization Specialty Diagnoses / Procedures Referred By Puneet hallman Referred To Contact Procedures XR OUTSIDE IMAGES RIGHT LOWER EXTREMITY Unknown, ProviderMD Referral ID Status Reason Start Date Expiration Date Visits Requested Visits Authorized [id number] Receiving Office to Obtain Authorization 12/28/2023 1 1 Encounter Details Date Type Department Care Team (Latest Contact Info) Description 12/28/2023 19:36 EDT - 12/28/2023 23:59 EDT Hospital Encounter [facility] Secondary Reads [place] Arrived Discharge Disposition: Home or Self Care Social [...] , Sat (Dialysis). Apply to fistula site. losartan (COZAAR) 50 mg tablet Take 50 mg by mouth daily. multivitamin (NEPHROVITE) 0.8 mg tablet Take 1 Tab by mouth at bedtime. 10/14/2018 mv,He-WD-N1-YH-8-twi-epa -fish (PRORENAL QD) 400-500 mcg-unit capsule Take [...] or Self Care documented in this encounter Plan of Treatment Not on file documented as of this encounter Procedures Procedure Name Priority Date/Time Associated Diagnosis Comments XR OUTSIDE IMAGES RIGHT LOWER EXTREMITY Routine 12/28/2023 19:36 EDT documented in this encounter Results * XR OUTSIDE IMAGES RIGHT LOWER EXTREMITY (12/28/2023 19:36 EDT) Narrative 12/28/2023 19:36 EDT This is a non-reportable exam. Provider Unknown MD SHAFFER OTHER IMAGING OR DERABLES documented in this encounter Visit Diagnoses Not on filedocumented in this encounter Care Teams Passenger Screener Relationship Specialty Start Date End Date Jarad Iglesias, [facility] [address] [place] [address] [place] [address] PCP - General 10/12/18 documented as of this encounter
--- OUTSIDE RECORDS SUMMARY | 2023-12-31 17:07 | XMS_ITS | Encounter Summary ---
Author Organization [facility] [place] [address] Care Team Providers Care Toll Ticket Clerk Name Role Phone Ej Duran MD Primary Care Provider [phone] Reason for Visit * Reason Comments Eye Problem The patient presents with severe reduction visual acuity right eye. Benedicto Hardy Vitreous Hemorrhage OD; shared pt with maeve duran/ MANN did laser Encounter Details Date Type Department Care Team ([facility] st Contact Info) Description 02/22/2012 12:30 PM EDT Follow-Up [place] [address] Matteo Beckett MD [facility] [place] [address] Vitreous hemorrhage (Primary Dx); Proliferative diabetic retinopathy, [...] EDT February 27, 2012 Ej Duran M.D. [facility] [address] [place] [address] RE: Maurice Rudolph A#: [id number] Duran: Just a brief note [...] way to reach me is through my furniture removalist's assistant Joselin at [phone]. Respectfully, Matteo Beckett M.D. documented in this encounter Nursing Notes * 02/22/2012 12:30 PM EDT >> MATTEO BECKETT MD [place] Feb 27, 2012 1:15 PM Patient continues [...] as indicated Matteo Beckett MD OPHTHALMOLOGY S [facility] ORDERABLES documented in this encounter Visit Diagnoses Diagnosis Vitreous hemorrhage- Primary Proliferative diabetic retinopathy, both eyes Type II or unspecified type diabetes mellitus with ophthalmic manifestations, not stated as uncontrolled Vitreous hemorrhage, right eye Vitreous hemorrhage Diabetes mellitus Type II or unspecified type diabetes mellitus without mention of complication, not stated as uncontrolled documented in this encounter Care Teams Toll Ticket Clerk Relationship Specialty Start Date End Date Ej Duran MD [address] [place] [address] PCP - General 10/28/11 06/04/18 documented as of this encounter
--- OUTSIDE RECORDS SUMMARY | 2023-12-31 17:07 | XMS_ITS | Encounter Summary ---
Author Organization [facility] [place] [address] Care Team Providers Care Transport Aircrewman Name Role Phone Petros Daley DO Primary Care Provider [phone] Reason for Visit * Reason Comments Procedure PRP OS for Diabetic retinopathy Encounter Details Date Type Department Care Team (Late st Contact Info) Description 09/21/2011 12:45 PM EDT Procedure [place] [address] Matteo Diane MD [facility] [place] [address] Diabetic retinopathy (Primary Dx); Vitreous hemorrhage, right [...] uncontrolled documented in this encounter Care Teams Transport Aircrewman Relationship Specialty Start Date End Date Petros Daley DO [address] [place] [address] [address] [place] [address] PCP - General 06/15/11 10/27/11 documented as of this encounter
--- OUTSIDE RECORDS SUMMARY | 2023-12-31 17:07 | XMS_ITS | Encounter Summary ---
Author [facility] [place] [address] Care Team Providers Care Sales Representative Uniforms Name Role Phone Ej Duran MD Primary Care Provider [phone] Reason for Visit * Reason Comments Post Op 1 week s/p LPI OD Encounter Details Date Type Department Care Team (Late st Contact Info) Description 04/14/2012 11:15 AM EST Office [place] [address] Phillip Schwartz MD [facility] [place] [address] Acute angle-closure glaucoma of right eye (Primary [...] glaucoma documented in this encounter Care Teams Sales Representative Uniforms Relationship Specialty Start Date End Date Ej Duran MD [address] [place] [address] PCP - General 10/28/11 06/04/18 documented as of this encounter
--- OUTSIDE RECORDS SUMMARY | 2023-12-31 17:07 | XMS_ITS | Encounter Summary ---
Author Organization [facility] [place] [address] Care Team Providers Care Machine Scallop Cutter Name Role Phone Ej Duran MD Primary Care Provider [phone] Reason for Visit * Reason Comments PDR Pt. is here for a re tinal eye evaluation w/ Dr. Diane. Encounter Details Date Type Department Care Team (Late st Contact Info) Description 05/19/2012 2:30 PM EST [place] [address] Matteo Diane MD [facility] [place] [address] Proliferative diabetic retinopathy of both eyes. Status [...] glaucoma documented in this encounter Care Teams Machine Scallop Cutter Relationship Specialty Start Date End Date Ej Duran MD [address] [place] [address] PCP - General 10/28/11 06/04/18 documented as of this encounter
--- OUTSIDE RECORDS SUMMARY | 2023-12-31 17:07 | XMS_ITS | Encounter Summary ---
Author Organization [facility] [place] [address] Care Team Providers Care Acquisitions Analyst Name Role Phone Ej Duran MD Primary Care Provider [phone] Reason for Visit * Reason Comments Post Op s/p 1 day retinal de tachment repair with vitrectomy and membrane peel OD Encounter Details Date Type Department Care Team (Late st Contact Info) Description 04/05/2012 10:45 AM EST Office [place] [address] [facility] [address] [place] [address] Proliferative diabetic retinopathy, both eyes; Diabetes mellitus; [...] glaucoma documented in this encounter Care Teams Acquisitions Analyst Relationship Specialty Start Date End Date Ej Duran MD [address] [place] [address] PCP - General 10/28/11 06/04/18 documented as of this encounter
--- OUTSIDE RECORDS SUMMARY | 2023-12-31 17:07 | XMS_ITS | Encounter Summary ---
Author Organization [facility] [place] [address] Care Team Providers Care Hunter Trapper Name Role Phone Ej Duran MD Primary Care Provider [phone] Reason for Visit * Reason Comments PDR 4 wk ck, PRP 8/20 & 9/4 OS. Vision better OD. OD still poor. ESTRELLA FERRO Encounter Details Date Type Department Care Team (Late st Contact Info) Description 02/01/2012 1:30 PM EDT [place] [address] Matteo Beckett MD [facility] [place] [address] Diabetes mellitus; Blurred vision; Diabetic retinopathy; Proliferative [...] EDT February 01, 2012 Ej Duran M.D. [facility] [address] [place] [address] RE: Maurice Gurrola#: [id number] Duran: I had the pleasure [...] The best way to contact us is [phone]. He may speak to Joselin Montemayor, our practice director or to Simeon, our surgery specialist to keep us updated regarding his progress. [...] hemorrhage documented in this encounter Care Teams Hunter Trapper Relationship Specialty Start Date End Date Ej Duran MD [address] [place] [address] PCP - General 10/28/11 06/04/18 documented as of this encounter
--- OUTSIDE RECORDS SUMMARY | 2023-12-31 17:07 | XMS_ITS | Encounter Summary ---
Author Organization [facility] Address [address] [place] [address] Care Team Providers Care Pants Cutter Name Role Phone Jarad Iglesias DNP Primary Care Provider [phone] Reason for Referral * (Routine/Next Available) - Receiving Office to Obtain Authorization Specialty Diagnoses / Procedures Referred By Puneet hallman Referred To Contact Procedures CT OUTSIDE IMAGES RIGHT LOWER EXTREMITY Unknown, ProviderMD Referral ID Status Reason Start Date Expiration Date Visits Requested Visits Authorized [id number] Receiving Office to Obtain Authorization 12/28/2023 1 1 Reason for Visit * (Routine/Next Available) - Receiving Office to Obtain Authorization Specialty Diagnoses / Procedures Referred By Puneet hallman Referred To Contact Procedures CT OUTSIDE IMAGES RIGHT LOWER EXTREMITY Unknown, ProviderMD Referral ID Status Reason Start Date Expiration Date Visits Requested Visits Authorized [id number] Receiving Office to Obtain Authorization 12/28/2023 1 1 Encounter Details Date Type Department Care Team (Latest Contact Info) Description 12/28/2023 19:36 EDT - 12/28/2023 23:59 EDT Hospital Encounter [facility] Medical Center Secondary Reads [place] Arrived Discharge [...] 1 Tab by mouth at bedtime. 10/14/2018 mv,Kq-BR-[id number]-FA-1-ghr-epa -fish (PRORENAL QD) 400-500 mcg-unit capsule Take [...] EDT documented in this encounter Results * CT OUTSIDE IMAGES RIGHT LOWER EXTREMITY (12/28/2023 19:36 EDT) Narrative 12/28/2023 19:36 EDT This is a non-reportable exam. Provider Unknown MD SHAFFER OTHER IMAGING OR DERABLES documented in this encounter Visit Diagnoses Not on filedocumented in this encounter Care Teams Pants Cutter Relationship Specialty Start Date End Date Jarad Iglesias, [facility] [address] [place] [address] [place] [address] PCP - General 10/12/18 documented as of this encounter
--- OUTSIDE RECORDS SUMMARY | 2023-12-31 17:07 | XMS_ITS | Encounter Summary ---
[place] [address] Care Team Providers Care Sewer Line Repairer Name Role Phone Ej Duran MD Primary Care Provider [phone] Reason for Visit * Reason Comments Eye Problem increased IOP OD Encounter Details Date Type Department Care Team (Late st Contact Info) Description 04/06/2012 1:30 PM EST Office [place] [address] Phillip Schwartz MD [facility] [place] [address] Acute angle-closure glaucoma of right eye (Primary [...] glaucoma documented in this encounter Care Teams Sewer Line Repairer Relationship Specialty Start Date End Date Ej Duran MD [address] [place] [address] PCP - General 10/28/11 06/04/18 documented as of this encounter
--- OUTSIDE RECORDS SUMMARY | 2023-12-31 17:07 | XMS_ITS | Encounter Summary ---
Author Organization [facility] [place] [address] Care Team Providers Care Floor Layer Helper Name Role Phone Ej Duran MD Primary Care Provider [phone] Reason for Visit * Reason Comments Procedure PRP OS Encounter Details Date Type Department Care Team (Late st Contact Info) Description 01/04/2012 3:30 PM EDT Procedure [place] [address] Miriam Hancock MD [facility] [place] [address] PDR (proliferative diabetic retinopathy) (Primary Dx) Discharge [...] uncontrolled documented in this encounter Care Teams Floor Layer Helper Relationship Specialty Start Date End Date Ej Duran MD [address] [place] [address] PCP - General 10/28/11 06/04/18 documented as of this encounter
--- OUTSIDE RECORDS SUMMARY | 2023-12-31 17:07 | XMS_ITS | Encounter Summary ---
Author Organization [facility] [place] [address] Care Team Providers Care Stamping Die Maker Name Role Phone Ej Duran MD Primary [...] 05/01/2012 11:15 AM EST [place] [address] Miriam Hancock MD [facility] [address] Post-operative state (Primary Dx) Discharge Disposition: Home [...] status documented in this encounter Care Teams Stamping Die Maker Relationship Specialty Start Date End Date Ej Duran MD [address] [place] [address] PCP - General 10/28/11 06/04/18 documented as of this encounter
--- OUTSIDE RECORDS SUMMARY | 2023-12-31 17:07 | XMS_ITS | Clinical Summary ---
Author Organization [facility] Address [address] [place] [address] Care Team Providers Care Network Field Engineer Name Role Phone Sanjay AriannaJarad barrientos Maeve DNP Primary Care Provider [phone] Allergies No known active allergies Medications Medication [...] mouth every , , Sat (Dialysis). Active mv,Iv-DS-S7-OM-3-dha- epa-fish (PRORENAL QD) 400-500 mcg-unit capsule Take [...] Cellulitis 10/12/2018 ESRD (end stage renal disease) ([facility]) 019 Encounters Date Type Department Care Team Description 12/28/2023 19:36 EDT - 12/28/2023 23:59 EDT Hospital Encounter [facility] Secondary Reads [place] Arrived Discharge Disposition: Home or Self Care 12/28/2023 19:36 EDT - 12/28/2023 23:59 EDT Hospital Encounter [facility] Secondary [place] Arrived Discharge Disposition: Home or Self Care from Last 3 Months Surgical History Surgery Date Site/Laterality Comments CORONARY ARTERY BYPASS GRAFT 05/02/2014 - 05/01/2015 Medical History Medical History Date Comments End stage renal disease on dialysis ([facility]) Diabetes mellitus ([facility]) Coronary artery disease Neuropathy GERD (gastroesophageal [...] - 1-dose 60+ series) 2019 COVID-19 Vaccine (2022-24 season) 2022 Hepatitis C Screen Completed 07/31/2021 [...] is a non-reportable exam. Provider Unknown MD IMG OTHER IMAGING OR DERABLES * XR OUTSIDE IMAGES RIGHT LOWER EXTREMITY (12/28/2023 19:36 EDT) Narrative 12/28/2023 19:36 EDT This is a non-reportable exam. Provider Unknown MD IMG OTHER IMAGING OR DERABLES * HEPATITIS C AB W REFLEX TO HCV RNA BY PCR (07/31/2021 10:10 EDT) Hep C Antibody Negative Negative 08/03/2021 9:53 EDT [facility] Blood VENOUS BLOOD / Unknown 07/31/2021 10:10 EDT 07/31/2021 21:21 EDT Provider Outr Resulting Lab CHEMISTRY & BLOOD GAS ORDERABLES [facility] [address] [place] [address] from Last 3 Months or Most Recently Relevant to Health Maintenance Advance Directives For more information, please contact: [phone] * Full Code (Latest Code Status on File) Date Activated Date Inactivated Comments 10/12/2018 13:48 10/14/2018 16:39 Question Answer Comments Reason for decision includes: Full code consistent with overall plan of care Who participated in the discussion? Patient Care Teams Network Field Engineer Relationship Specialty Start Date End Date Jarad Iglesias, [facility] [place] [address] PCP - General 10/12/18
--- OUTSIDE RECORDS SUMMARY | 2023-12-31 17:07 | XMS_ITS | Encounter Summary ---
Author Organization [facility] [place] [address] Care Team Providers Care Ornamental Plaster Sticker Name Role Phone Ej Duran MD Primary Care Provider [phone] Encounter Details Date Type Department Care Team (Late st Contact Info) Description 04/03/2012 9:34 AM EST - 04/03/2012 12:02 PM EST Surgery [place] [address] Ruthann Augustin MD [facility] [address] [place] [address] REPAIR COMPLEX RETINAL DETACH W/VITRECTOMY, MEMBRANE PEELING, [...] have additional concerns or questions please call. [phone] 7. If after hours please call [phone] for the ophthalogy doctor home connect lpn. [address] ??? [place] [address] ??? [phone] ??? [email or web address] ??? [facility] ??? [facility] ??? [place], [place] * Patient Instructions* Gloria Vo PA - 04/03/2012 12:24 PM EST Please keep patch and shield on operated eye until follow up appointment tomorrow. Ice packs over patch and shield as needed for pain. Tylenol 500 mg every four hours as needed for pain. Please bring eye kit and all eye drops to tomorrow's appointment. Call [phone] for all questions concerns. Have patient remain [...] Augustin MD - 04/03/2012 12:30 PM EST [facility] [place] Note Patient Name: Maurice Rudolph : [id number] MR#: [id number] Case Date: 04/03/2012 Surgeon: Surgeon(s) and Role: * Ruthann Augustin MD - Primary * HERVE Edwards - Resident-Ring Making Machine Operator Preoperative diagnosis: PDR & VIT HEM Postoperative [...] Operative Note Patient Name: Maurice Rudolph : [id number] MR#: [id number] Case Date: 04/03/2012 Surgeon: Surgeon(s) and Role: * Ruthann Augustin MD - Primary * HERVE Edwards - Resident-Ring Making Machine Operator Preoperative diagnosis: PDV & VIT HEM Postoperative [...] Glucose, POC 178 60 - 199 mg/dL [facility] Comment: Supplemental ranges: <110 mg/dL before meals <200 mg/dL all other times of the day Blood specimen (specimen) 04/03/2012 1:04 PM EST 04/03/2012 1:04 PM EST Ruthann Augustin MD POINT OF CARE T EST ORDERABLES Performing Organization Address [facility] Co de Phone Number [facility] [employer] * POCT Glucose (04/03/2012 8:22 AM EST) Glucose, POC 152 60 - 199 mg/dL [facility] Comment: Supplemental ranges: <110 mg/dL before meals <200 mg/dL all other times of the day Blood specimen (specimen) 04/03/2012 8:22 AM EST 04/03/2012 8:22 AM EST Ruthann Augustin MD POINT OF CARE T EST ORDERABLES Performing Organization Address [facility] Co de Phone Number [facility] documented in this encounter Visit Diagnoses Not [...] Given 04/03/2012 8:26 AM EST 1 drop midfgrjo-oswfjlgjr-gnfwdwseqqjhd (DEXACINE) 3.5-10,000-0.1 mg-unit/g-% ophthalmic ointment ONCE PRN, [...] Ruthann Augustin MD - Comment: post op) kfduyxcs-yoozomrgg-cmljasskmj one (DEXACINE) 3.5-10,000-0.1 mg-unit/g-% ophthalmic ointment (CANCELED) [...] cefazolin) documented in this encounter Care Teams Ornamental Plaster Sticker Relationship Specialty Start Date End Date Ej Duran MD [address] [place] [address] PCP - General 10/28/11 06/04/18 documented as of this encounter
--- OUTSIDE RECORDS SUMMARY | 2023-12-31 17:07 | XMS_ITS ---
[place] [address] Care Team Providers Care Electorate Officer Name Role Phone Kimani Leger MD Primary Care Provider [phone] Transplant Episode Kidney Candidate [facility] ([place], [place]) [facility] Evaluation began on 02/06/2020 Marked as Ineligible on 01/13/2021 Reason: Unable to Contact Patient Kidney CoordinatorSherie Mccallum APRN Phone: N/A Fax: N/A Email: N/A Scores Score Value Updated Exceptions/Reas ons CPRA Not available EPTS (Calc) 94 12/31/2023 [place] [facility] Diagnosis Organ Primary Contributory Kidney Diabetes Mellitus - Type I Care Team Name Role Phone Fax Email Sherie Mccallum APRN Kidney Coordinator N/A N/A N/A Cheryl Presley RD Registered Dietitian N/A N/A N/A Too Morgan MD Referring Physician N/A N/A N/A Ana Hernández Shoulder Sawyer N/A N/A N/A Ines Nye MSW Obiee Lead Developer N/A N/A N/A Young Watts MD Transplant Physician N/A N/A N/A Events Pre-Transplant Referred: 12/18/2019 Evaluation began: 02/06/2020 Committee: 01/13/2021 Pending Checklist Tasks (Due on or before 01/30/2024) Name Due Date Attached Appoint ment Coordinator Review of Records 07/13/2020 Dialysis History Dialysis History Start End Type Comments Center 02/15/2017 In-center Hemodialysis [facility] Information Center Phone Fax Address [facility] [phone] [address] [facility] [address]
--- OUTSIDE RECORDS SUMMARY | 2023-12-31 17:07 | XMS_ITS | Encounter Summary ---
Author Organization [facility] [place] [address] Care Team Providers Care Adzing And Boring Machine Helper Name Role Phone Ej Duran MD Primary Care Provider [phone] Encounter Details Date Type Department Care Team (Latest Contact Info) Description 07/18/2012 6:43 AM EDT - 07/18/2012 8:56 AM EDT Hospital Encounter [place]patient [place] [address] Lisette Schwartz MD [facility] [place] [address] Discharge Disposition: Home Social History Tobacco Use [...] Schwartz MD - 07/18/2012 2:59 PM EDT [facility] Operative Note Patient Name: Maurice Rudolph : [id number] MR#: [id number] Case Date: 07/18/2012 Surgeon: Surgeon(s) and Role: * Lisette Schwartz MD - Primary OLERICULTURE TEACHER: Staff. PREOPERATIVE DIAGNOSIS: Mature cataract, right eye. [...] Operative Note Patient Name: Maurice Rudolph : [id number] MR#: [id number] Case Date: 07/18/2012 Surgeon: Surgeon(s) and Role: [...] Day of Surgery (Day of Procedure) 0715 ([facility] ider: Francoise Ang RN) documented in this encounter Care Teams Adzing And Boring Machine Helper Relationship Specialty Start Date End Date Ej Duran MD [address] [place] [address] PCP - General 10/28/11 06/04/18 documented as of this encounter
--- OUTSIDE RECORDS SUMMARY | 2023-12-31 17:08 | XMS_ITS | Encounter Summary ---
Author Organization [facility] Address [address] [place] [address] Care Team Providers Care Cloth Burler Name Role Phone Sanjay Jarad Keller DNP Primary Care Provider [phone] Encounter Details Date Type Department Care Team (Late st Contact Info) Description 10/12/2018 Results Only Imaging [facility] [phone] Unknown, Provider, Social History Tobacco Use Types [...] filedocumented in this encounter Care Teams Cloth Burler Relationship Specialty Start Date End Date Jarad Iglesias, [facility] [place] [address] PCP - General 10/12/18 documented as of this encounter
--- OUTSIDE RECORDS SUMMARY | 2023-12-31 17:08 | XMS_ITS | Encounter Summary ---
Author Organization [facility] Address [address] [place] [address] Care Team Providers Care Graduate Teaching Assistant Name Role Phone Sanjay AriannaJarad barrientos Maeve DNP Primary Care Provider [phone] Reason for Visit * Reason Onset Date Comments Discuss Possible Transfer 10/12/2018 Encounter Details Date Type Department Care Team (Late st Contact Info) Description 10/12/2018 Telephone [facility] [address] [place], [place] [address] Xiomara Mccauley MD [address] [place] [phone] Discuss Possible Transfer Social History Tobacco [...] Encounter - Xiomara Mccauley MD - 10/12/2018 0[address] call [address] Chávez at [facility] via [facility] Transfer Center regarding possible transfer. Patient is [...] placed for retention. [facility] beds available [place] [facility] Accepted patient for emergent transfer to medicine bed with telemetry given rapidly progressive cellulitis and associated sepsis. Xiomara Mccauley MD documented in this encounter Plan of Treatment Not on file documented as of this encounter Visit Diagnoses Not on filedocumented in this encounter Care Teams Graduate Teaching Assistant Relationship Specialty Start Date End Date Jarad Iglesias, [facility] [place] [address] PCP - General 10/12/18 documented as of this encounter
--- OUTSIDE RECORDS SUMMARY | 2023-12-31 17:08 | XMS_ITS | Encounter Summary ---
Author Organization [facility] Address [address] [place] [address] Care Team Providers Care Block Hand Name Role Phone Jarad Iglesias DNP Primary Care Provider [phone] Reason for Referral * Follow Up (Routine/Next Available) - New Request Specialty Diagnoses / Procedures Referred By Puneet hallman Referred To Contact Diagnoses Cellulitis of left lower extremity Shaji Younger MD [address] [place] [address] Jarad Iglesias [address] [address] Referral ID Status Reason Start Date Expiration Date Visits Requested Visits Authorized [id number] New Request Continuity of Care 10/14/2018 1 1 Question Answer Reason for Request: Follow up hospitalization for LLE cellulitis Expected Discharge Date (Inpatient Only): 10/13/2018 Encounter Details Date Type Department Care Team (Late st Contact Info) Description 10/13/2018 17:20 EDT - 10/14/2018 14:30 EDT Hospital Encounter [facility] General Medicine Unit [address] [place] [address] Xiomara Mccauley MD [address] [place] [phone] Eliot Muse MD [address] [address] Cellulitis of left lower extremity (Primary Dx); ESRD (end stage renal disease) ([facility]) Discharge Disposition: Home or Self Care [...] diabetes mellitus with diabetic neuropathy, unspecified-E11.40[ICD-10-CM] Z79.4 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 ESRD (end stage renal disease) ([facility]) 10/12/2018 Resolved Hospital Problems No resolved problems [...] and chills. He subsequently sought care at [facility], reportedly on presentation to have a fever of 101.1F and was hemodynamically stable. He had a minor lactate elevationat 2.1, and received half a liter of lactated Ringer's and 1.5 g of vancomycin. Initial exam was not concerning for a necrotizing soft tissue infection and he was transferred to [facility] for further evaluation. He improved with vancomycin [...] 1 Tab by mouth at bedtime. 10/14/2018 mv,An-DK-R1-GD-0-tpx-epa -fish (PRORENAL QD) 400-500 mcg-unit capsule Take [...] D/C Summary faxed to Evonne @ # [phone]. YUNI MOORE, # [id number] Weekend CM * [...] 10/14/2018 1237 EDT Rehabilitation Therapies [facility] Note Date of Service: 10/14/2018 [...] LLE -daily CBC -follow up cultures from [facility] -tylenol q8hrs prn ?? End-stage renal disease [...] resident. Eliot Muse MD * Guerda Goldberg, [facility] - 10/13/2018 1052 EDT Addendum: Received call [...] needs. Dialysis: Pt will resume his regular [facility] outpatient HD schedule at the [facility] dialysis unit (P: [phone]/F: [phone]) tomorrow, Saturday 10/14. Contacted unit and spoke with PERNELL Robles who confirmed pt is able to return tomorrow and that unit has Cefazolin in stock. Will send d/c summary with antibiotic orders and HD treatment sheet from today via fax. Reinstated dialysis transport with [facility]. Discharge Transportation: Pick-up is scheduled for 1600 today with [facility] (P: [phone]). Pt will be picked up in the [facility] lobby. No voucher needed. Discharge plan discussed with pt and primary team. Pt is in agreement with this plan. GAURI Whitten, MA Patient Transportation Driver Ext. [phone] Pager: [phone] * Christina Lamb, [facility] - 10/13/2018 1002 EDT Renal Pharmacy - Admission Progress Note Maurice Rudolph is a 58 y.o. male who dialyzes in [place], [place] on . Recommendations: - Continue calcitriol. [...] of insulin pump, which the patient self-administers OUTPATIENT PHYSICAL THERAPIST. Per Dr. Younger, it is not a continuous pump and the patient was informed to not use while admitted. Insulin aspart sliding scale and bedtime regimens already ordered. - OUTPATIENT PHYSICAL THERAPIST medications and outpatient pharmacy information updated. - [...] history obtained from: Patient, outpatient pharmacy and [facility] records. Medication reconciliation was performed. Discrepancies [...] filled: Phone #: STEVE Taylor (current pharmacy) [place], [place] (used prior to [place] move in 04/2018) For any questions, please contact the renal pharmacist, pager [phone]. If evenings or weekends, pleasecall the central pharmacy at [phone]. Christina Adonis, Pharm.D. * Guerda Goldberg, [facility] - 10/13/2018 0952 EDT Initial Case Management/Social [...] Directive For Finances: No TRANSPORTATION: Transportation: Medicaid/MedicareTransport [place] Transportation: [facility] CULTURAL, DENOMINATIONAL and/or LANGUAGE factors affecting health care/discharge planning: [...] Listed Home Health: Other: Other (enter in comments)([place] [facility]; Outpatient dialysis TTS @ [facility] dialysis unti) POST HOSPITAL TRANSITION PLAN: Maurice Rudolph is a 58 y/o male who was admitted to [facility] for leg pain. His medical history is significant for CAD, ESRD on HD, GERD, HTN, and T2DM. Met with Maurice today to assess needs for discharge. He presented as AAOx3 and easy to engage. He shared that he resides with his , Kaye, and their 31 y/o son Ze, in a two story home in [place] with ground level entry. Maurice's bedroom is [...] with all ADLs/iADLs which is provided by [facility]. He reported that he also provides assistance and that his son is assisting her while he is hospitalized. 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 He receives services through [employer] [facility] [employer]. He shared that he is prescribed a probing/white cane but he stated that he does not wish to use it yet. He uses a magnifier to read. Maurice receives dialysis on a TTS outpatient schedule at the [facility] dialysis unit (P: [phone]/F: [phone]). He is transported to his appointments via [facility] (P: [phone]). Confirmed unit has Cefazolin available to administer at dialysis treatments if needed. Maurice is independent with ADLs/iADLs and ambulatory without an assistive device. He did not have anyservices in the community prior to admission and doesn't have any new anticipated skilled needs fordischarge. Maurice will need assistance with a ride home when discharged. GAURI Whitten, MA Patient Transportation Driver Ext. [phone] Pager: [phone] * Zahida Munson RN - 10/12/2018 1514 [...] and chills. He subsequently sought care at [facility], reportedly on presentation to have a fever of 101.1F and was hemodynamically stable. He had a minor lactate elevation at 2.1, and received half a liter of lactated Ringer's and 1.5 g of vancomycin. Initial exam was not concerning for a necrotizing soft tissue infection and he was transferred to [facility] for further evaluation. On interview he reports [...] being evaluated for a kidney transplant at [facility]. Does report producing a small amount of urine each day. Review of Systems A complete 10 point ROS was performed and pertinent positive and negative findings listed in HPI, otherwise negative. Past Medical History: Diagnosis Date ??? Coronary artery disease ??? Diabetes mellitus ([facility]) ??? End stage renal disease on dialysis ([facility]) ??? GERD (gastroesophageal reflux disease) ??? Hyperlipidemia [...] LLE -daily CBC -follow up cultures from [facility] -tylenol q8hrs prn End-stage renal disease on [...] NO Bruit: WNL Thrill: PRESENT Function: WNL intermediate project manager access plan: maintain fistula. Labs: What labs [...] B4. Report called to dialysis unit in [facility]. ACCESS ADMISSION DISCHARGE Access Type: Natural AV [...] (kg): 103.1 Flow (ml/min): 600 n/a Location: [facility] Weight (kg): 103.0 Na (mmol/l): 139 n/a [...] (l): 3.0 DIALYSIS LOG Time BP Pulse NEW CAR SALESPERSON AP Blood Dial. Temp UFR UF TMP [...] treated at for sending us dialysis in [facility]. Nursing made a continuity call to that [...] and chills. He subsequently sought care at [facility], reportedly on presentation to have a fever of 101.1F and was hemodynamically stable. He had a minor lactate elevation at 2.1, and received half a liter of lactated Ringer's and 1.5 g of vancomycin. Initial exam was not concerning for a necrotizing soft tissue infection and he was transferred to [facility] for further evaluation. ?? On interview he [...] being evaluated for a kidney transplant at [facility]. Does report producing a small amount [...] NO Bruit: WNL Thrill: PRESENT Function: WNL senior living access plan: remain patent and infection free Labs: per epic Fluid assessm pt up .5kg from tw but has lost actual weight from nbt eating. edema lower extremiteis. will attempt 2000cc net if critline and pt tolerant.o2 on .hypotensive at start. Transplant/Modality Status:working with [facility] on transplant. Patient Education:todays treatment plan and [...] (kg): n/a Flow (ml/min): 700 n/a Location: [facility] Weight (kg): 104.0 Na (mmol/l): 140 n/a Machine #: [id number] Target Weight (kg): 102.0 K (mmol/l): 2.0 [...] Removed (l): DIALYSIS LOG Time BP Pulse NEW CAR SALESPERSON AP Blood Dial. Temp UFR UF TMP [...] been on dialysis for 3 years at [facility]. He got admitted with left lower extremity [...] is due for his next session tomorrow. Sabas Guan MD Nephrology. documented in this encounter [...] Resource Associate Case Management - Social Pager: #[phone] * Plan of Care - Will Parisi RN - 10/13/2018 4762 EDT Problem: Daily Care Plan Goals Goal: [...] Care - Tiara Bergman RN - 10/12/2018 4802 EDT Problem: Daily Care Plan Goals Goal: [...] bladder soft. Action: Bladder scan: 266ml, notified front maker MD. Response: front maker MD aware, will recheck at 2am. Pt [...] 7.15 4.0 - 10.4 K/cmm 10/14/2018 7:44 [facility] RBC 3.10(L) 4.36 - 5.78 M/cmm 10/14/2018 7:44 [facility] Hemoglobin 10.2(L) 13.8 - 17.3 gm/dl 10/14/2018 7:44 [facility] HCT 30.0(L) 39.5 - 50.2 % 10/14/2018 7:44 [facility] MCV 97(H) 81 - 95 fl 10/14/2018 7:44 [facility] MCH 32.9 27.6 - 33.0 pg 10/14/2018 7:44 [facility] MCHC 34.0 32.8 - 36.4 gm/dl 10/14/2018 7:44 [facility] RDW-CV 14.4(H) <14.2 % 10/14/2018 7:44 [facility] RDW-SD 50.3(H) <46.0 fl 10/14/2018 7:44 [facility] PLT 145 141 - 377 K/cmm 10/14/2018 7:44 [facility] MPV 11.0 9.5 - 12.7 fl 10/14/2018 7:44 [facility] Blood specimen (specimen) BLOOD SPECIMEN / Unknown 10/14/2018 7:13 EDT 10/14/2018 7:33 EDT Shaji Younger MD HEMATOLOGY & PF4 ORD ERABLES Performing Organization Address City/[facility]/ZIP Co de Phone Number [facility] [address] [place] [address] * (ABNORMAL) GLUCOSE, GLUCOMETER (10/14/2018 6:56 EDT) Glucose, Fingerstick 223(H) 70 - 100 mg/dl 10/14/2018 6:58 EDT [facility] Top Flavor Attendant ID [id number] 10/14/2018 6:58 EDT [facility] Comment:[facility] BLOOD SPECIMEN / Unknown 10/14/2018 6:56 EDT 10/14/2018 6:58 EDT Xiomara Mccauley MD CHEMISTRY & BLOO D GAS ORDERABLES Performing Organization Address [facility]/ZIP Co de Phone Number [facility] [address] [place] [address] * (ABNORMAL) GLUCOSE, GLUCOMETER (10/13/2018 23:59 EDT) Glucose, Fingerstick 201(H) 70 - 100 mg/dl 10/14/2018 0:01 EDT [facility] Top Flavor Attendant ID [id number] 10/14/2018 0:01 EDT [facility] Comment:[facility] BLOOD SPECIMEN / Unknown 10/13/2018 23:59 EDT 10/14/2018 0:01 EDT Xiomara Mccauley MD CHEMISTRY & BLOO D GAS ORDERABLES [facility] [address] [place] [address] * (ABNORMAL) GLUCOSE, GLUCOMETER (10/13/2018 21:27 EDT) Glucose, Fingerstick 265(H) 70 - 100 mg/dl 10/13/2018 21:30 EDT [facility] Top Flavor Attendant ID [id number] 10/13/2018 21:30 EDT [facility] Comment:Test Performed by [facility] BLOOD SPECIMEN / Unknown 10/13/2018 21:27 EDT 10/13/2018 21:30 EDT Xiomara Mccauley MD CHEMISTRY & BLOO D GAS ORDERABLES Performing Organization Address City/[facility] Co de Phone Number [facility] [address] [place] [address] * (ABNORMAL) GLUCOSE, GLUCOMETER (10/13/2018 16:04 EDT) Glucose, Fingerstick 265(H) 70 - 100 mg/dl 10/13/2018 16:04 EDT [facility] Top Flavor Attendant ID [id number] 10/13/2018 16:04 EDT [facility] Comment:Test Performed by [facility] BLOOD SPECIMEN / Unknown 10/13/2018 16:04 EDT 10/13/2018 16:05 EDT Xiomara Mccauley MD CHEMISTRY & BLOO D GAS ORDERABLES Performing Organization Address [facility] Co de Phone Number [facility] [address] [place] [address] * (ABNORMAL) GLUCOSE, GLUCOMETER (10/13/2018 7:33 EDT) Glucose, Fingerstick 167(H) 70 - 100 mg/dl 10/13/2018 7:38 EDT [facility] Top Flavor Attendant ID [id number] 10/13/2018 7:38 EDT [facility] Comment:Test Performed by [facility] BLOOD SPECIMEN / Unknown 10/13/2018 7:33 EDT 10/13/2018 7:38 EDT Xiomara Mccauley MD CHEMISTRY & BLOO D GAS ORDERABLES Performing Organization Address City/[facility]/ZIP Co de Phone Number [facility] [address] [place] [address] * PROTIME (10/13/2018 6:00 EDT) Pro Time 12.3 10.3 - 13.4 secs 10/13/2018 7:38 [facility] I.N.R. 1.0 0.9 - 1.1 Ratio 10/13/2018 7:38 [facility] Comment: Moderate Intensity Coumadin INR = 2.0-3.0 Adjustments in anticoagulant therapy dose should be based upon the INR and NOT the Pro Time. Blood specimen (specimen) BLOOD SPECIMEN / Unknown 10/13/2018 6:00 EDT 10/13/2018 7:16 EDT Shaji Younger MD HEMATOLOGY & PF4 ORD ERABLES Performing Organization Address City/State/[facility] Co de Phone Number [facility] [address] [place] [address] * (ABNORMAL) COMPLETE BLOOD COUNT (10/13/2018 6:00 EDT) WBC 9.59 4.0 - 10.4 K/cmm 10/13/2018 7:30 [facility] RBC 3.20(L) 4.36 - 5.78 M/cmm 10/13/2018 7:30 [facility] Hemoglobin 10.7(L) 13.8 - 17.3 gm/dl 10/13/2018 7:30 [facility] HCT 30.9(L) 39.5 - 50.2 % 10/13/2018 7:30 [facility] MCV 97(H) 81 - 95 fl 10/13/2018 7:30 [facility] MCH 33.4(H) 27.6 - 33.0 pg 10/13/2018 7:30 [facility] MCHC 34.6 32.8 - 36.4 gm/dl 10/13/2018 7:30 [facility] RDW-CV 14.4(H) <14.2 % 10/13/2018 7:30 [facility] RDW-SD 50.1(H) <46.0 fl 10/13/2018 7:30 [facility] PLT 140(L) 141 - 377 K/cmm 10/13/2018 7:30 EDT [facility] MPV 10.5 9.5 - 12.7 fl 10/13/2018 7:30 EDT [facility] Blood specimen (specimen) BLOOD SPECIMEN / Unknown 10/13/2018 6:00 EDT 10/13/2018 7:16 EDT Shaji Younger MD HEMATOLOGY & PF4 ORD ERABLES Performing Organization Address [facility] de Phone Number [facility] [address] [place] [address] * (ABNORMAL) ELECTROLYTES (10/13/2018 6:00 EDT) Sodium 130(L) 136 - 145 mEq/L 10/13/2018 8:26 EDT [facility] Potassium 4.3 3.5 - 5.0 mEq/L 10/13/2018 8:26 EDT [facility] Chloride 89(L) 96 - 110 mEq/L 10/13/2018 8:26 EDT [facility] CO2 26 22 - 32 mEq/L 10/13/2018 8:26 EDT [facility] Blood specimen (specimen) BLOOD SPECIMEN / Unknown 10/13/2018 6:00 EDT 10/13/2018 7:16 EDT Shaji Younger MD CHEMISTRY & BLOOD GA S ORDERABLES Performing Organization Address [facility] de Phone Number [facility] [address] [place] [address] * (ABNORMAL) GLUCOSE, GLUCOMETER (10/12/2018 20:10 EDT) Glucose, Fingerstick 219(H) 70 - 100 mg/dl 10/12/2018 20:11 EDT [facility] Top Flavor Attendant ID [id number] 10/12/2018 20:11 EDT [facility] Comment:Test Performed by [facility] BLOOD SPECIMEN / Unknown 10/12/2018 20:10 EDT 10/12/2018 20:11 EDT Xiomara Mccauley MD CHEMISTRY & BLOO D GAS ORDERABLES Performing Organization Address [facility] Co de Phone Number [facility] [address] [place] [phone] * (ABNORMAL) GLUCOSE, GLUCOMETER (10/12/2018 18:34 EDT) Glucose, Fingerstick 197(H) 70 - 100 mg/dl 10/12/2018 18:48 EDT [facility] Top Flavor Attendant ID [id number] 10/12/2018 18:48 EDT [facility] Comment:Test Performed by [facility] BLOOD SPECIMEN / Unknown 10/12/2018 18:34 EDT 10/12/2018 18:48 EDT Xiomara Mccauley MD CHEMISTRY & BLOO D GAS ORDERABLES Performing Organization Address [facility] Co de Phone Number [facility] [address] [place] [address] * (ABNORMAL) GLUCOSE, GLUCOMETER (10/12/2018 14:10 EDT) Glucose, Fingerstick 134(H) 70 - 100 mg/dl 10/12/2018 14:10 EDT [facility] Top Flavor Attendant ID [id number] 10/12/2018 14:10 EDT [facility] Comment:Test Performed by [facility] BLOOD SPECIMEN / Unknown 10/12/2018 14:10 EDT 10/12/2018 14:11 EDT Xiomara Mccauley MD CHEMISTRY & BLOO D GAS ORDERABLES Performing Organization Address [facility] Co de Phone Number [facility] [address] [place] [address] * (ABNORMAL) PROTIME (10/12/2018 14:06 EDT) Pro Time 13.6(H) 10.3 - 13.4 secs 10/12/2018 14:38 EDT [facility] I.N.R. 1.2(H) 0.9 - 1.1 Ratio 10/12/2018 14:38 [facility] Comment: Moderate Intensity Coumadin INR = 2.0-3.0 Adjustments in anticoagulant therapy dose should be based upon the INR and NOT the Pro Time. Blood specimen (specimen) BLOOD SPECIMEN / Unknown 10/12/2018 14:06 EDT 10/12/2018 14:14 EDT Shaji Younger MD HEMATOLOGY & PF4 ORD ERABLES [facility] [address] [place] [address] * (ABNORMAL) COMPLETE BLOOD COUNT (10/12/2018 14:06 EDT) WBC 10.31 4.0 - 10.4 K/cmm 10/12/2018 14:33 [facility] RBC 3.42(L) 4.36 - 5.78 M/cmm 10/12/2018 14:33 [facility] Hemoglobin 11.2(L) 13.8 - 17.3 gm/dl 10/12/2018 14:33 [facility] HCT 33.2(L) 39.5 - 50.2 % 10/12/2018 14:33 [facility] MCV 97(H) 81 - 95 fl 10/12/2018 14:33 [facility] MCH 32.7 27.6 - 33.0 pg 10/12/2018 14:33 [facility] MCHC 33.7 32.8 - 36.4 gm/dl 10/12/2018 14:33 [facility] RDW-CV 14.6(H) <14.2 % 10/12/2018 14:33 [facility] RDW-SD 51.2(H) <46.0 fl 10/12/2018 14:33 [facility] PLT 150 141 - 377 K/cmm 10/12/2018 14:33 [facility] MPV 10.2 9.5 - 12.7 fl 10/12/2018 14:33 EDT [facility] Blood specimen (specimen) BLOOD SPECIMEN / Unknown 10/12/2018 14:06 EDT 10/12/2018 14:14 EDT Shaji Younger MD HEMATOLOGY & PF4 ORD ERABLES Performing Organization Address [facility] de Phone Number [facility] [address] [place] [address] * (ABNORMAL) ELECTROLYTES (10/12/2018 14:06 EDT) Sodium 131(L) 136 - 145 mEq/L 10/12/2018 14:49 EDT [facility] Potassium 4.2 3.5 - 5.0 mEq/L 10/12/2018 14:49 T [facility] Chloride 90(L) 96 - 110 mEq/L 10/12/2018 14:49 EDT [facility] CO2 29 22 - 32 mEq/L 10/12/2018 14:49 EDT [facility] Blood specimen (specimen) BLOOD SPECIMEN / Unknown 10/12/2018 14:06 EDT 10/12/2018 14:14 EDT Shaji Younger MD CHEMISTRY & BLOOD GA S ORDERABLES Performing Organization Address [facility] de Phone Number [facility] [address] [place] [address] * HEMOGLOBIN A1C (10/12/2018 14:06 EDT) Hemoglobin A1C 9.7 % 10/12/2018 15:02 EDT [facility] Comment: Reference Range: <5.7% Normal 5.7-6.4% Prediabetes =>6.5% Diagnostic for diabetes (if confirmed) Goals for glycemic control in diabetes ADA 2017 For non adults with diabetes: ?? Target <7.0% For children and adolescents with type 1 diabetes: ?? Target <7.5% More or less stringent targets may be appropriate for individual patients. Est Avg Glucose 232 mg/dl 9 15:02 EDT [facility] Comment: eAG represents the A1c result expressed as average glucose in mg/dl. Blood specimen (specimen) BLOOD SPECIMEN / Unknown 10/12/2018 14:06 EDT 10/12/2018 14:14 EDT Shaji Younger MD CHEMISTRY & BLOOD GA S ORDERABLES [facility] [address] [place] [address] documented in this encounter Visit Diagnoses Diagnosis Cellulitis- Primary Cellulitis and abscess of unspecified site Cellulitis of left lower extremity Cellulitis and abscess of leg, except foot ESRD (end stage renal disease) ([facility]) End stage renal disease ESRD (end stage renal disease) ([facility]) End stage renal disease documented in [...] mcg into the vein every Tuesday (Dialysis). mv,Ax-EN-T7-OM-3-dha-ep a-fish (PRORENAL QD) 400-500 mcg-unit capsule Take [...] Routine 1836 (Not Given - Provider: Tiara Bergman RN - Reason: Other - Comment: pt sefl administered 4 units through Insulin pump. FS 197) 0731 (Not Given - Provider: Giovana Church RN - Reason: Order parameters not [...] 0808 (Given - Provider: Giovana Church RN) 1128 (Given - Provider: Lisa Mccarthy, [...] 09/30 documented in this encounter Care Teams Block Hand Relationship Specialty Start Date End Date Jarad Iglesias, DANIKA [facility] [place] [address] PCP - General 10/12/18 documented as of this encounter
[2023-12-31 17:31] LABS: Abs Immature Grans 0.03 10^3/uL (0.0-0.06); Absolute Basophil Count 0.05 10^3/uL (0.0-0.2); Absolute Eosinophil Count 0.86 10^3/uL (0.0-0.7); Absolute Lymphocyte Count 0.84 10^3/uL (1.2-3.4); Absolute Neutrophil Count 4.24 10^3/uL (1.2-6.7); Basophils % 0.7 %; Eosinophils % 12.8 %; HCT 33.7 % (40.0-50.0); HGB 10.5 g/dL (13.5-17.5); Immature Grans % 0.4 %; Lymphocytes % 12.5 %; MCH 31.3 pg (27.0-33.0); MCHC 31.2 % (32.0-36.0); MCV 101 fL (80-95); MPV 9.9 fL (8.0-11.0); Monocytes % 10.4 %; Neutrophils % 63.2 %; Platelet Count 138 10^3/uL (130-400); RBC 3.35 10^6/uL (4.36-5.78); RDW 17.2 % (11.8-14.1); RDW-SD 63.8 fL; WBC 6.72 10^3/uL (4.4-10.8)
[2023-12-31 17:46] LABS: Anion Gap 9.4 mmol/L (3-11); BUN 45 mg/dL (7-18); CO2 31.6 mmol/L (21.0-32.0); Calcium 9.3 mg/dL (8.5-10.1); Chloride 98 mmol/L (98-107); Estimated GFR 7.15 (mL/min/1.73m2); Glucose 212 mg/dL (74-106); Potassium 4.8 mmol/L (3.5-5.1); Sodium 139 mmol/L (136-145)
[2023-12-31 17:47] LABS: CREATININE 7.8 mg/dL (0.70-1.30)
== END 2023-12-31 19:03 | disposition home or self-care (01) ==
PROVIDERS: Emergency Provider Nurse Practitioner Family; PCP Student in an Organized Health Care Education/Training Program
DX: M86.9 Osteomyelitis, unspecified (principal); E11.621 Type 2 diabetes mellitus with foot ulcer; L97.412 Non-pressure chronic ulcer of right heel and midfoot with fat layer exposed; L03.031 Cellulitis of right toe; L02.611 Cutaneous abscess of right foot; E11.22 Type 2 diabetes mellitus with diabetic chronic kidney disease; I13.2 Hypertensive heart and chronic kidney disease with heart failure and with stage 5 chronic kidney disease, or end stage renal disease; I50.9 Heart failure, unspecified; N18.6 End stage renal disease; Z99.2 Dependence on renal dialysis
CPT/HCPCS: 80048; 87040; 99283; 85025; 99285

== ENCOUNTER 2024-01-03 01:21 | Outpatient (CLI) | payer MEDICARE, MEDICAID, SELFPAY ==
--- NOTE | 2024-01-03 08:00 | DI.RAD_ITS ---
Exam(s) XR FOOT RT COMPLETE EXAM: XR FOOT RT COMPLETE CLINICAL HISTORY: ULCER RT FOOT,? OM,[id number]. TECHNIQUE: 2D digital imaging was performed. COMPARISON: CR XR FOOT RT COMPLETE from 12/28/2023 CT scan right foot 12/28/2023 FINDINGS: 3 views No evidence of acute fracture or diastasis of the Lisfranc joint. Vascular calcification in the foot again noted, both proximally and distally. There are advanced degenerative changes the 1st, 2nd and 3rd tarsometatarsal joints. No osteomyelitis at these levels. Also significant degenerative change at the articulation between the navicular and medial cuneiform. The osteomyelitis at the tip of the distal phalanx of the 5th toe seen on CT scan of 828 24 is diffic ult to assess on these non dedicated images. The phalanges of the other toes appear intact. There is bandage material over the medial aspect of the great toe. There is a small smooth erosion o n the medial aspect of the base of the proximal phalanx of the great toe, unchanged, and not having a ppearance of obvious osteomyelitis at this level. With respect to the 2 sesamoid bones subjacent to the great metatarsal head, there is no obvious evidence of osteomyelitis of these 2 sesamoid bones. IMPRESSION: Multilevel findings as described above. However, the only area which is truly suspicious for osteomy elitis is the distal phalanx of the 5th toe. Unfortunately this is difficult to assess accurately on these nondedicated full foot images. Nevertheless, this finding was quite convincing on CT scan of 12/28/2023. If clinically indicated dedicated views of the 5th toe can be performed for added sensitivity and spe cificity. DATA REPOSITORY: RADIATION DOSE DELIVERED:
--- NOTE | 2024-01-03 08:00 | DI.RAD_ITS ---
Exam(s) XR FOOT LT COMPLETE EXAM: XR FOOT LT COMPLETE CLINICAL HISTORY: comparison,PAIN. TECHNIQUE: 2D digital imaging was performed. COMPARISON: CT CT LOWER EXTREMITY RT WO from 12/28/2023 CR XR FOOT RT COMPLETE from 12/28/2023 CR XR FOOT RT COMPLETE from 01/03/2024 FINDINGS: 3 views There is no evidence of acute fracture or diastasis of the Lisfranc joint. Vascular calcification is noted in both the dorsalis pedis and plantar arteries. There is no obvious skin ulcer and no radiog raphic evidence of osteomyelitis. There are degenerative changes in the 1st tarsometatarsal joint; there is relative sparing of the oth er tarsometatarsal joints without involvement of the 2nd and 3rd TMT joints, as is evident in the opp osite-right foot. Small inferior calcaneal spur is noted as is an enthesophyte on the posterior calc aneus Achilles insertion site. IMPRESSION: No fractures. Vascular calcification. No radiographic evidence of osteomyelitis. Other findings as above. DATA REPOSITORY: RADIATION DOSE DELIVERED:
== END 2024-01-03 01:41 ==
LOC: DI 01:21
PROVIDERS: PCP Student in an Organized Health Care Education/Training Program; Visit Provider Podiatrist
DX: L97.512 Non-pressure chronic ulcer of other part of right foot with fat layer exposed (principal); M79.672 Pain in left foot
CPT/HCPCS: 11042; 36415; 80053; 85652; 93005; 99285; 73630; 83735; 85025; 86140

== ENCOUNTER 2024-01-03 16:03 | Emergency (ER) | payer MEDICARE, MEDICAID, SELFPAY ==
[2024-01-03 16:08] VITALS: BP 144/65; PULSE 98; RESP 14; TEMP 36.5; O2SAT 94
--- OUTSIDE RECORDS SUMMARY | 2024-01-03 16:13 | XMS_ITS ---
Author Name Evonne, Clinic Address [address] [place] [address] Phone [phone] Organization [facility] e, NA DOCUMENT DISCLAIMER Multiple document versions may exist, please be sure you review the latest version. The information in the [facility] Continuity of Care Document represents a summary [...] of Caregiver Requires some assistance Laundry 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 [facility] health services Characteristics of Home environment Housing [...] Sign Value Date / Time Blood Pressure-sitting 188/60 mmHg January 02, 2024 06:56 AM Blood Pressure-standing 156/66 mmHg Ruth 2023 06:56 AM Heart Rate 66 beats per minute December 06:56 AM Respiratory Rate 16 breaths per minute January 02, 2024 06:56 AM Temperature 97.2 deg. F January 01 06:56 AM Weight Vital Sign Value Date / Time Estimated Dry Weight 100 kg November 13 11:59 PM Pre-Dialysis 105.20 kg January 01 06:56 AM Post-Dialysis 101.10 kg January 01 06:56 AM Other Other Value Date / Time Height 163 cm July 01, 2022 1 2:00 AM HEALTH CONCERNS Tuberculosis Testing TST Date Administered TST Date Read TST Result 04/04/2018 04/06/2018 Negative (<5) mm LAB RESULTS Hematology Result Type Result Value Relevant Referen ce Range Interpretation Date WBC (No Diff) 5.23 1000/mcL 4.80 - [...] - 10.80 1000/mcL - October 03, 2023 Neutrophils 74.3 % 40.0 - 75.0 % - October 02, 024 Platelets 121 1000/mcL 130 - 400 1000/mcL Low October 03, 2023 Hemoglobin x 3 31.2 % 42.0 - [...] % 40.0 - 75.0 % - October 30, 024 Monocytes 5.3 % 3.0 - 10.0 % [...] ng/mL 22 - 322 ng/mL High October 30, 024 Hemoglobin x 3 29.1 % 42.0 - [...] 0.0 - 4.0 % - December 04 24 Eosinophil 9.4 % 0.0 - 7.0 % High December 04 Basophils 1.2 % 0.0 - 1.5 % - December 04 24 Lymphocytes 15.8 % 19.0 - 48.0 % [...] Value Relevant Reference Range Interpre tation Date Bicarbonate 22 mEq/L 22 - 29 mEq/L - October 09, Chloride 98 mEq/L 96 - 108 mEq/L - October 09, Potassium 5.8 mEq/L 3.5 - 5.1 mEq/L [...] 22 - 29 mEq/L - October 30, 024 URR, Calc 97 % 65 - 80 % High October 31, 2023 BUN, Post 3 mg/dL 6 - 19 mg/dL Low October 30 URR, Calc 78 % 65 - 80 % - December 04 BUN, Post 13 mg/dL 6 - 19 mg/dL - December 04, Sodium 137 mEq/L 136 - 145 mEq/L - November BUN 59 mg/dL 6 - 19 mg/dL High December 04, Bicarbonate 24 mEq/L 22 - 29 mEq/L [...] Ran ge Provided - September 05, 2023 Krt/V 0.00 No Reference Ran ge Provided - October 03, 2023 wstdKt/V 3.2 [...] - 2.6 mg/dL High June 06, 2023 Magnesium 2.6 mg/dL 1.6 - 2.6 [...] 1.6 - 2.6 mg/dL High September 04, 024 Vitamin D 25 Hydroxy 14.8 ng/mL 30.0 - 100.0 ng/mL Low October 03, 2023 PTH-Intact, Plasma 459 pg/mL 16 - 80 pg/mL High Sep Calcium, Total 8.6 mg/dL 8.4 - 10.2 mg/dL - October 10, 2023 Alkaline Phosphatase 74 U/L 40 - 129 U/L - 2023 Ca x P Product 45 0 - 54 - October 09, 024 Phosphorus 5.2 mg/dL 2.6 - 4.5 [...] Corrected Ca x P Product 44 0 54 - December 05, 2023 PTH-Intact, Plasma 410 pg/mL 16 - 80 pg/mL High Nov Ca x P Product 45 0 - December 05, 2023 Phosphorus 5.1 mg/dL 2.6 - 4.5 mg/dL High November Calcium, Total 8.9 mg/dL 8.4 - 10.2 mg/dL - 2023 Calcium, Total 8.5 mg/dL 8.4 - 10.2 mg/dL - 2023 Calcium, Total 8.2 mg/dL 8.4 - 10.2 mg/dL Low 2023 Calcium, Total 8.5 mg/dL 8.4 - 10.2 mg/dL - 2023 Liver/Nutrition Result Type Result Value Relevant Reference Range Interpre tat Glucose 272 mg/dL 70 - 100 mg/dL High October 09 Albumin (BCG) 4.3 g/dL 3.5 - 5.2 g/dL - October eNPCR 1.62 No Reference Range Provided - October 31, 2023 Albumin (BCG) 4.2 g/dL 3.5 - 5.2 g/dL - December 05, 2023 eNPCR 0.88 No Reference Range Provided - December 05, 2023 Trace Elements Result Type Result Value Relevant Reference Range Interpre tation Aluminum < 5 mcg/L 0 - 10 [...] 12, 2021 0.25 m L Intramuscular Completed [id number] November 16, 2017 40.0 mcg Intramuscular Com pleted IJAUUIK-T-ITXRO July 20, 2017 40.0 mcg Intramuscular Co mpleted [id number]-W-UJSNS June 22, 2017 40.0 mcg Intramuscular Completed RGLSGVR-B-SHOPY May 20, 2017 40.0 mcg Intramuscular Completed TRANSPLANT WAITLIST STATUS No Information on Transplant Waitlist Status ADVANCE DIRECTIVES Directive Description Ordered By Effective Date Resuscitation status Full Code Too Morgan September 22, 2023 DIALYSIS TREATMENTS Conventional Hemodialysis Date Pre-Treatment Vitals Post-Treatment Laura ls Duration (hr) BFR (mL/min) Dialysate Dialyzer Dialysis Access Meds Admin Augus t 2023 Weight 104.00 kg Weight 100.80 kg 03:52:00 410 2.0 K, 2.5 Ca, 1.0 Mg, 100 Dextrose (G2251) 180nre Optifl ux Blood Pressure-sitting 155/69 mmHg Blood Pressure-sit ting [...] 97.4 deg. F Temperature 97.6 deg. F January 02, 2024 Weight 105.20 kg Weight 101.10 kg 03:28:00 410 2.0 K, 2.5 Ca, 1.0 Mg, 100 Dextrose (G2251) 180nre Optiflux Hemodialysis-AV Fistula-Standard, Left Forearm, Radial Artery to Cephalic Vein Access Placed on April 13, 2017 Heparin Sodium (Porcine) 1,000 Units/mL Systemic; 8000units,Intravenous - push Vitamin D (Calcitriol) Oral; 0.75mcg,Oral Blood Pressure-sitting 163/80 mmHg Blood Pressure-sit ting 188/60 mmHg Blood Pressure-standing 157/77 mmHg Blood Pressure-st anding 156/66 mmHg Heart Rate 77 beats per minute Heart Rate 66 beats per minute Respiratory Rate 12 breaths per minute Respiratory Rate 16 breaths per minute Temperature 97.2 deg. F Temperature 97.2 deg. F
--- OUTSIDE RECORDS SUMMARY | 2024-01-03 16:14 | XMS_ITS | Encounter Summary ---
[place] [address] Care Team Providers Care Clip Coater Name Role Phone Jarad Keller DNP Primary Care Provider [phone] Encounter Details Date Type Department Care Team (Late st Contact Info) Description 11/14/2020 Telephone [place] [address] Tracie Wild Social History Tobacco Use Types [...] on filedocumented in this encounter Care Teams Clip Coater Relationship Specialty Start Date End Date Jarad Keller DNP PCP - General Family Medicine 06/05/18 02/09/21 documented as of this encounter
--- OUTSIDE RECORDS SUMMARY | 2024-01-03 16:14 | XMS_ITS | Encounter Summary ---
[place] [address] Care Team Providers Care Cover Stitch Machine Operator Name Role Phone Kimani Leger MD Primary Care Provider [phone] Encounter Details Date Type Department Care Team (Late st Contact Info) Description 01/25/2022 7:46 AM EDT Anesthesia [place] [address] Merlin Joyce MD [facility] [place] [address] Anesthesia Record Procedure Summary Procedure Name Responsible [...] cephalic vein (lateral side of arm), right; [id number]-qcx-[id number] catheter system; 20 gauge, 1 in length; [...] Procedure Summary Date: 01/25/22 Room / Location: [facility] INTERVENTIONAL RADIOLOGY / [facility] Anesthesia Start: 745 Anesthesia Stop: 928 Procedure: FISTULAGRAM (N/A ) Diagnosis: (ESRD) Surgeons: Jose Light MD Responsible Provider: Merlin Joyce MD Anesthesia Type: MAC ASA Status: 3 All Anesthesia Providers: Anesthesiologist: Merlin Joyce MD X RAY OPERATOR: Олег Robles CRNA Vitals Value Taken Time BP 118/69 01/25/22 1045 Temp 36 ??C (96.8 ??F) 01/25/22 1115 Pulse Resp 16 01/25/22 1045 SpO2 97 % 01/25/22 1100 Pain Level 0 01/25/22 0930 [facility] Level of Consciousness: Awake and Alert Pain [...] AV Fistula Evaluations 06/17/2020 Kimani Larson MD [facility] INTERVENTIONL RAD ??? IR DIALYSIS ACCESS - AV FISTULA EVALUATIONS 11/04/2020 IR Dialysis Access - AV Fistula Evaluations 11/04/2020 Kimani Larson MD [facility] INTERVENTIONL RAD ??? PERIPHERAL IRIDOTOMY 04/06/2012 OD [facility] ??? PRO EXTRACAPSULAR CATARACT RMVL INSERTION IO LENS PROSTH CPLX WO ECP 07/18/2012 ??? PRO EXTRACAPSULAR CATARACT RMVL INSERTION IO LENS PROSTH W/O ECP 11/29/2012 CATARACT EXTRACTION, EXTRACAPSULAR, W/ LENS INSERTION performed by Erasmo Bajwa MD at [facility] OSC ? ? PRO REPAIR COMPLEX RETINA DETACH VITRECTOMY & MEMB PEEL 04/03/2012, 04/03/12 REPAIR COMPLEX RETINAL DETACHMENT, W/ VITRECTOMY, MEMBRANE PEELING performed by Matteo Diane MD at [facility] MAIN OR ? ? PRO REPAIR COMPLEX RETINA DETACH VITRECTOMY & MEMB PEEL 07/31/2012 REPAIR COMPLEX RETINAL DETACHMENT, W/ VITRECTOMY, MEMBRANE PEELING performed by Matteo Diane MD at [facility] MAIN OR ? ? PRO REPAIR COMPLEX RETINA DETACH VITRECTOMY & MEMB PEEL 01/08/2013 REPAIR COMPLEX RETINAL DETACHMENT, W/ VITRECTOMY, MEMBRANE PEELING performed by Matteo Diane MD at [facility] MAIN OR ??? PRO TX [...] mg documented in this encounter Care Teams Cover Stitch Machine Operator Relationship Specialty Start Date End Date Kimani Leger MD [address] [place] [address] PCP - General Family Medicine 02/10/21 documented as of this encounter
--- OUTSIDE RECORDS SUMMARY | 2024-01-03 16:14 | XMS_ITS | Encounter Summary ---
Author Organization [facility] [place] [place] [address] Care Team Providers Care Import Customer Service Manager Name Role Phone Kimani Leger MD Primary Care Provider [phone] Reason for Visit * Reason Comments Medication Refill Encounter Details Date Type Department Care Team (Late st Contact Info) Description 06/08/2021 Refill [place]ph[place] [address] Too Morgan MD [facility] [place] [address] Social History Tobacco Use Types Packs/Day Years [...] on filedocumented in this encounter Care Teams Import Customer Service Manager Relationship Specialty Start Date End Date Kimani Leger MD [address] [place] [address] PCP - General Family Medicine 02/10/21 documented as of this encounter
--- OUTSIDE RECORDS SUMMARY | 2024-01-03 16:14 | XMS_ITS | Encounter Summary ---
Author Organization [facility] [place] [address] Care Team Providers Care Fitness And Wellness Instructor Name Role Phone Jarad Keller DNP Primary Care Provider [phone] Encounter Details Date Type Department Care Team (Late st Contact Info) Description 11/04/2020 2:30 PM EDT - 11/04/2020 4:30 [place] [phone] Ceasar Gonzalez MD [facility] [place] [address] FISTULAGRAM Social History Tobacco Use Types Packs/Day [...] Morrow RN - 11/04/2020 4:35 PM EDT [facility] Vascular and Interventional Radiology Discharge Instructions [...] is during regular office hours, please call [phone]. If it is after regular office hours, or on weekends or holidays, please call [phone] and ask to speak to the Skiing Instructor prison psychiatrist for Interventional Radiology. You have received medication [...] * POCT Glucose (11/04/2020 1:59 PM EDT) [facility] Signature Glucose, POC 172 65 - 199 mg/dL [facility] Comment: Supplemental ranges: <140 mg/dL before meals <180 mg/dL all other times of the day Blood 11/04/2020 1:59 PM EDT 11/04/2020 1:59 PM EDT Ceasar Gonzalez MD POINT OF CARE TEST O RDERABLES Performing Organization Address City/[facility] Co de Phone Number [facility] [place] [address] * Potassium (11/04/2020 1:34 PM EDT) Potassium 3.9 3.5 - 5.0 mmol/L [facility] Comment: Please note: ??Patients [...] Vanessa MD CHEMISTRY ORDERABLES Performing Organization Address [facility] Co de Phone Number [facility] [place] [address] documented in this encounter Visit Diagnoses Not on filedocumented in this encounter Active and Recently Administered Medications Care Teams Fitness And Wellness Instructor Relationship Specialty Start Date End Date Jarad Keller DNP PCP - General Family Medicine 06/05/18 02/09/21 documented as of this encounter
--- OUTSIDE RECORDS SUMMARY | 2024-01-03 16:14 | XMS_ITS | Encounter Summary ---
[place] [address] Care Team Providers Care Steamship Agent Name Role Phone Jarad Keller DANIKA Primary Care Provider [phone] Reason for Referral * Diagnostic Test (Routine) - Closed Specialty Diagnoses / Procedures Referred By Puneet hallman Referred To Contact Radiology Diagnoses ESRD (end stage renal disease) Procedures IR Dialysis Access - AV Fistula Evaluations Too Morgan MD [facility] [place] [address] [facility] [place] [address] Referral ID Status Reason Start Date Expiration Date V isits Requested Visits Authorized [id number] Closed Specialty Service Requested 10/21/2020 04/22/2022 1 1 Encounter Details Date Type Department Care Team ([facility] st Contact Info) Description 10/21/2020 Orders Only [place] [address] Too Morgan MD [facility] [place] [address] ESRD (end stage renal disease) Social History [...] technique under ultrasound guidance and a 4 Burmese sheath placed facing peripherally. ??4 Burmese sheath exchanged over guidewire for a 6 Burmese sheath. ??Guidewire and angled catheter were placed [...] to AV anastomosis, resolved with 7 mm MACHINE ROOM ENGINEER. 3. Coil from prior intervention at outside hospital in the forearm, unchanged from 06/17/20. 4. AV anastomosis not stenotic. Plan/Disposition: 1) To Same Day for recovery, may discharge to home when meets criteria. 2) Left arm dialysis fistula ready for use. Slat Basket Maker Helper(s): Resident/Fellow: Narinder Rivera Attending: Dr. Larson. ??I, Dr. Larson was present throughout this procedure. 11/04/2020 Too Morgan MD IM IR ORDERABLES documented in this encounter Visit Diagnoses Diagnosis ESRD (end stage renal disease) End stage renal disease ESRD (end stage renal disease) End stage renal disease documented in this encounter Care Teams Steamship Agent Relationship Specialty Start Date End Date Jarad Keller DNP PCP - General Family Medicine 06/05/18 02/09/21 documented as of this encounter
--- OUTSIDE RECORDS SUMMARY | 2024-01-03 16:14 | XMS_ITS | Encounter Summary ---
Author Organization [facility] [place] [place] [address] Care Team Providers Care Tool Engineer Name Role Phone Kimani Leger MD Primary Care Provider [phone] Reason for Visit * Reason Comments Medication Refill Encounter Details Date Type Department Care Team (Late st Contact Info) Description 05/31/2021 Refill [place] [address] Too Morgan MD [facility] [place] [address] Social History Tobacco Use Types Packs/Day Years [...] filedocumented in this encounter Care Teams Tool Engineer Relationship Specialty Start Date End Date Kimani Leger MD [address] [place] [address] PCP - General Family Medicine 02/10/21 documented as of this encounter
--- OUTSIDE RECORDS SUMMARY | 2024-01-03 16:14 | XMS_ITS | Encounter Summary ---
[place] [address] Care Team Providers Care Industrial/Organizational Psychologist Name Role Phone Kimani Leger MD Primary Care Provider [phone] Reason for Visit * Reason Onset Date Comments Follow-up 04/12/2023 Encounter Details Date Type Department Care Team (Late st Contact Info) Description 04/12/2023 Tele[place] [address] Harmeet Arvizu MD [facility] [place] [address] Follow-up Social History Tobacco Use Types Packs/Day [...] on filedocumented in this encounter Care Teams Industrial/Organizational Psychologist Relationship Specialty Start Date End Date Kimani Leger MD [facility] [place] [address] PCP - General Family Medicine 02/10/21 documented as of this encounter
--- OUTSIDE RECORDS SUMMARY | 2024-01-03 16:14 | XMS_ITS | Encounter Summary ---
[place] [address] Care Team Providers Care Refueling Ramp Supervisor Name Role Phone Jarad Keller DANIKA Primary Care Provider [phone] Encounter Details Date Type Department Care Team (Late st Contact Info) Description 12/08/2020 Telephone [place] [address] Sherie Mccallum, [place] [facility] [place] [address] Social History Tobacco Use Types Packs/Day Years [...] on filedocumented in this encounter Care Teams Refueling Ramp Supervisor Relationship Specialty Start Date End Date Jarad Keller DNP PCP - General Family Medicine 06/05/18 02/09/21 documented as of this encounter
--- OUTSIDE RECORDS SUMMARY | 2024-01-03 16:14 | XMS_ITS | Encounter Summary ---
[place] [address] Care Team Providers Care Vehicle Washer Name Role Phone Kimani Leger MD Primary Care Provider [phone] Encounter Details Date Type Department Care Team (Late st Contact Info) Description 09/20/2023 Telephone [place]rology [place] [address] Lian Card MD [facility] [place] [address] Social History Tobacco Use Types Packs/Day Years [...] on filedocumented in this encounter Care Teams Vehicle Washer Relationship Specialty Start Date End Date Kimani Leger MD [address] [place] [address] PCP - General Family Medicine 02/10/21 documented as of this encounter
--- OUTSIDE RECORDS SUMMARY | 2024-01-03 16:14 | XMS_ITS | Encounter Summary ---
Author Organization [facility] [place] [address] Care Team Providers Care Rn Or Lvn Name Role Phone Kimani Leger MD Primary Care Provider [phone] Reason for Referral * Consultation (Routine) - Authorized Specialty Diagnoses / Procedures Referred By Puneet hallman Referred To Contact Ophthalmology Diagnoses Type 2 diabetes mellitus with retinopathy without macular edema, unspecified laterality, unspecified retinopathy severity, unspecified whether lobsterman insulin use Kimani Leger MD [address] [place] [address] Dr Matias [facility] [place] [address] Gudelia Carter OD [facility] [place] [address] Referral ID Status Reason Start Date Expiration Date Visits Requested Visits Authorized [id number] Authorized Consult, Test & Treat PCP Updated and/or Approved 08/15/2023 08/14/2024 6 6 Encounter Details Date Type Department Care Team (Latest Contact Info) Description 08/15/2023 Transcribe Orders eDH Incoming Referrals [phone] Kimani Leger MD [address] [place] [address] Type 2 diabetes mellitus with retinopathy without macular edema, unspecified laterality, unspecified retinopathy severity, unspecified whether shelter insulin use Social History Tobacco Use Types [...] unspecified laterality, unspecified retinopathy severity, unspecified whether shelter insulin use Ordered: 08/15/2023 documented as of this encounter Visit Diagnoses Diagnosis Type 2 diabetes mellitus with retinopathy without macular edema, unspecified laterality, unspecified retinopathy severity, unspecified whether lobsterman insulin use documented in this encounter Care Teams Rn Or Lvn Relationship Specialty Start Date End Date Kimani Leger MD [address] [place] [address] PCP - General Family Medicine 02/10/21 documented as of this encounter
--- OUTSIDE RECORDS SUMMARY | 2024-01-03 16:14 | XMS_ITS | Encounter Summary ---
Author Organization [facility] [place] [address] Care Team Providers Care Simonizer Name Role Phone Kimani Leger MD Primary Care Provider [phone] Encounter Details Date Type Department Care Team (Late st Contact Info) Description 12/23/2021 Notes [place] [address] Kameron Rodriguez PA [facility] [place] [address] Social History Tobacco Use Types Packs/Day Years [...] to AV anastomosis, resolved with 7 mm LINUX SYSTEMS ANALYST. ?? 3. Coil from prior intervention at [...] Evaluations 06/17/2020 Kimani Larson MD [facility] INTERVENTIONL RAD ??? IR DIALYSIS ACCESS - AV FISTULA EVALUATIONS 11/04/2020 IR Dialysis Access - AV Fistula Evaluations 11/04/2020 Kimani Larson MD [facility] INTERVENTIONL RAD ??? PERIPHERAL IRIDOTOMY 04/06/2012 OD Swendris ??? PRO EXTRACAPSULAR CATARACT RMVL INSERTION IO LENS PROSTH CPLX WO ECP 07/18/2012 ??? PRO EXTRACAPSULAR CATARACT RMVL INSERTION IO LENS PROSTH W/O ECP 11/29/2012 CATARACT EXTRACTION, EXTRACAPSULAR, W/ LENS INSERTION performed by Erasmo Bajwa MD at [facility] OSC ? ? PRO REPAIR COMPLEX RETINA DETACH VITRECTOMY & MEMB PEEL 04/03/2012, 04/03/12 REPAIR COMPLEX RETINAL DETACHMENT, W/ VITRECTOMY, MEMBRANE PEELING performed by Matteo Diane MD at [facility] MAIN OR ? ? PRO REPAIR COMPLEX RETINA DETACH VITRECTOMY & MEMB PEEL 07/31/2012 REPAIR COMPLEX RETINAL DETACHMENT, W/ VITRECTOMY, MEMBRANE PEELING performed by Matteo Diane MD at [facility] MAIN OR ? ? PRO REPAIR COMPLEX RETINA DETACH VITRECTOMY & MEMB PEEL 01/08/2013 REPAIR COMPLEX RETINAL DETACHMENT, W/ VITRECTOMY, MEMBRANE PEELING performed by Matteo Diane MD at [facility] MAIN OR ??? PRO TX EXTENSIVE RETINOPATHY, [...] on filedocumented in this encounter Care Teams Simonizer Relationship Specialty Start Date End Date Kimani Leger MD [address] [place] [address] PCP - General Family Medicine 02/10/21 documented as of this encounter
--- OUTSIDE RECORDS SUMMARY | 2024-01-03 16:14 | XMS_ITS | Encounter Summary ---
[place] [address] Care Team Providers Care Alligator Hunter Name Role Phone Kimani Leger MD Primary Care Provider [phone] Reason for Referral * Diagnostic Test (Routine) - Closed Specialty Diagnoses / Procedures Referred By Punete hallman Referred To Contact Radiology Diagnoses ESRD (end stage renal disease) Procedures IR Dialysis Access - AV Fistula Evaluations Simi Mcfadden APRN [facility] [place] [address] [facility] [place] [address] Referral ID Status Reason Start Date Expiration Date V isits Requested Visits Authorized [id number] Closed Specialty Service Requested 12/22/2021 06/24/2023 1 1 Encounter Details Date Type Department Care Team ([facility] st Contact Info) Description 12/22/2021 Orders Only [place] [address] Simi Mcfadden APRN [facility] [place] [address] ESRD (end stage renal disease) Social History [...] the AV anastomosis, resolved with 7 mm GLOST TILE SHADER. Additional 5 mm GLOST TILE SHADER of the AV anastomosis was performed. Plan: [...] a permanent image was stored. A 5 Mauritanian sheath was placed. Access technique: Micropuncture set [...] Angioplasty balloon(s): 7 mm x 40 mm [place] Angioplasty of the juxta-anastomotic location was performed. Angioplasty balloon(s): 5 mm x 40 mm [place] Final fistulagram Final fistulagram was performed. Findings: [...] who have questions please contact the health client care consultant that requested your imaging first. ? Narrative 01/27/2022 7:26 AM EDT PROCEDURE: Dialysis [...] the AV anastomosis, resolved with 7 mm GLOST TILE SHADER. Additional 5 mm PTAof the AV anastomosis [...] a permanent image was stored. A 5 Mauritanian sheath wasplaced. Access technique: Micropuncture set with [...] Angioplasty balloon(s): 7 mm x 40 mm [place] Angioplasty of the juxta-anastomotic location was performed. Angioplasty balloon(s): 5 mm x 40 mm [place] Final fistulagram Final fistulagram was performed. Findings: [...] patients who have questions please contactthe health client care consultant that requested your imaging first. Simi Mcfadden FIRST ASSISTANT IMG IR ORDERABLES documented in this encounter Visit Diagnoses Diagnosis ESRD (end stage renal disease) End stage renal disease ESRD (end stage renal disease) End stage renal disease documented in this encounter Care Teams Alligator Hunter Relationship Specialty Start Date End Date Kimani Leger MD [address] [place] [address] PCP - General Family Medicine 02/10/21 documented as of this encounter
--- OUTSIDE RECORDS SUMMARY | 2024-01-03 16:14 | XMS_ITS | Encounter Summary ---
[place] [address] Care Team Providers Care Literature Professor Name Role Phone Kimani Leger MD Primary Care Provider [phone] Encounter Details Date Type Department Care Team (Late st Contact Info) Description 12/28/2023 6:45 PM EDT Ancillary Procedure [place] [address] Bradford Momin MD [facility] [place] [address] Social History Tobacco Use Types Packs/Day Years [...] Lower Extremity (12/28/2023 6:37 PM EDT) Narrative [facility] - 12/28/2023 6:37 PM EDT This exam is auto-finalizing. It's purpose is for storage only. Bradford Momin MD IMG FILM LIBRARY ORD ERABLES Performing Organization Address City/State/[facility] Co de Phone Number [place], [place] documented in this encounter Visit Diagnoses Not on filedocumented in this encounter Care Teams Literature Professor Relationship Specialty Start Date End Date Kimani Leger MD [address] [place] [address] PCP - General Family Medicine 02/10/21 documented as of this encounter
--- OUTSIDE RECORDS SUMMARY | 2024-01-03 16:14 | XMS_ITS | Clinical Summary ---
[place] [address] Care Team Providers Care Field Producer Name Role Phone Kimani Leger MD Primary Care Provider [phone] Allergies Active Allergy Reactions Criticality Noted Date [...] PM EDT Ancillary Procedure [place] [address] Bradford Momin MD 12/28/2023 6:40 PM EDT Ancillary Procedure [place] [address] Bradford Momin MD from Last 3 Months Immunizations Name Administration Dates Next Due Moderna Covid-19 Monovalent 12Yr+ (Wardrobe Consultant 100mcg) 03/12/2021,08/25/2020,07/28/2020 Pneumococcal Polysaccharide (Pneumovax 23) 05/23 [...] 06/08/2018, 06/08/2018 Medical Devices Implanted Type Area Mixer And Blender Device Identifier Shelf Expiration Date Model / Serial / Lot Iol,Ma60ac,25. 0 ([id number]) (Autoreq) - [id number] Implanted:Qty: 1 on 07/18/2012 by Phillip Schwartz MD at [facility] IMPLANTS Right: Eye [employer] - [id number] 10/18/2012 MA60AC 25.0 / [id number] / Iol,Sn60wf,27. 0 ([id number]) (Autoreq) - [id number] Implanted:Qty: 1 on 11/29/2012 by Erasmo Bajwa MD at [facility] IMPLANTS Left: Eye 07/30/2016 SN60WF 27.0 / [id number] / SN60WF 27.0 Procedures Procedure Name [...] unspecified vessel or lesion type, unspecified whether [place] sh[place] or transplanted heart Benign prostatic hyperplasia, unspecified [...] unspecified vessel or lesion type, unspecified whether [place] or transplanted heart Benign prostatic hyperplasia, unspecified [...] unspecified vessel or lesion type, unspecified whether [place] sh[place]one or transplanted heart Benign prostatic hyperplasia, unspecified [...] Lower Extremity (12/28/2023 6:37 PM EDT) Narrative [facility] - 12/28/2023 6:37 PM EDT This exam is auto-finalizing. It's purpose is for storage only. Bradford Momin MD IMG FILM LIBRARY ORD ERABLES Performing Organization Address [facility] de Phone Number [place], [place] * Film Library- Storage Only DX Foot (12/28/2023 6:35 PM EDT) Narrative [facility] - 12/28/2023 6:35 PM EDT This exam is auto-finalizing. It's purpose is for storage only. Bradford Momin MD IMG FILM LIBRARY ORD ERABLES Performing Organization Address [facility] de Phone Number [place], [place] * (ABNORMAL) Basic Metabolic Panel (non-fasting) (06/17/2020 1:48 PM EST) Glucose 258(H) 65 - 199 mg/dL [facility] Comment:Diabetes: >=200 mg/d L plus symptoms Blood Urea Nitrogen 15 10 - 20 mg/dL [facility] Creatinine 2.44(H) 0.80 - 1.50 mg/dL [facility] Sodium 137 135 - 145 mmol/L [facility] Potassium 4.0 3.5 - 5.0 mmol/L [facility] Comment: Please note: ??Patients with WBC >100,000 may have falsely elevated Potassium levels. ??For accurate Potassium quantification in these patients send serum separator tube (gold top) for subsequent determinations. ??Contact the Clinical Chemistry Laboratory if there are any questions. Chloride 93(L) 98 - 107 mmol/L [facility] Carbon Dioxide 35(H) 22 - 31 mmol/L [facility] Anion Gap 9 5 - 15 mmol/L [facility] Calcium 9.6 8.5 - 10.5 mg/dL [facility] Est Glomerular Filtration Rate 28(L) >=60 mL/min/1. 73 m?? [facility] Comment: This patient? s [...] MD CHEMISTRY ORDERABLE S Performing Organization Address [facility]/ZIP Co de Phone Number [facility] [place] [address] * Hepatitis C Antibody (02/06/2020 2:48 PM EDT) Pathologist [facility] Hepatitis C Antibody Negative Negative [facility] Blood specimen (specimen) 02/06/2020 2:48 PM EDT 02/06/2020 2:57 PM EDT Narrative Resulting Agency Comment Spec In Lab Young Coronado MD CHEMISTRY ORDERABLES Performing Organization Address [facility]/ZIP Co de Phone Number [facility] [place] [address] * HIV Screen, 4th Generation ([facility]/CGP/APD/NLH) (02/06/2020 2:48 PM EDT) HIV Ab/Ag Screen Negative Negative [facility] Comment: This 4th Generation [...] In Lab Young Coronado MD CHEMISTRY ORDERABLES [facility] [place] [place] [address] * (ABNORMAL) Hemoglobin A1c (02/06/2020 2:48 PM EDT) Hemoglobin A1c 10.0(H) 4.3 - 5.6 % [facility] [...] Mellitus, Diabetes Care 2013; 36: Suppl. 1, S67-75 Estimated Average Glucose 239 mg/dL [facility] Comment: eAG [...] into estimated average glucose values. ??Diabetes Care 2008:31(8):1850-3190. Blood specimen (specimen) 02/06/2020 2:48 PM EDT 02/06/2020 2:57 PM EDT Narrative Resulting Agency Comment Spec In Lab Young Coronado MD CHEMISTRY ORDERABLES [facility] [place] [place] [address] from Last 3 Months or Most Recently Relevant to Health Maintenance Advance Directives Documents on File Type Date Recorded Patient Authorization Coordinator Expl anation Advance Directives and Luz giraldo [...] Agents on File Name Relationship Healthcare Agent [facility] p Communication Adriana Jessica Sibling First Alternate Health Care Agent Iva Blue Sibling Second Alternate Health Care Agent Care Teams Field Producer Relationship Specialty Start Date End Date Kimani Leger MD [address] [place] [address] [place] [address] PCP - General Family Medicine 02/10/21
--- OUTSIDE RECORDS SUMMARY | 2024-01-03 16:14 | XMS_ITS | Encounter Summary ---
Author Organization [facility] [place] [address] Care Team Providers Care Skid Adzer Name Role Phone Kimani Leger MD Primary Care Provider [phone] Encounter Details Date Type Department Care Team (Late st Contact Info) Description 04/20/2023 [place] [address] Too Morgan MD [facility] [place] [address] Social History Tobacco Use Types Packs/Day Years [...] on filedocumented in this encounter Care Teams Skid Adzer Relationship Specialty Start Date End Date Kimani Leger MD [address] [place] [address] PCP - General Family Medicine 02/10/21 documented as of this encounter
--- OUTSIDE RECORDS SUMMARY | 2024-01-03 16:14 | XMS_ITS | Encounter Summary ---
[place] [address] Care Team Providers Care Case Maker Name Role Phone Kimani Leger MD Primary Care Provider [phone] Encounter Details Date Type Department Care Team (Late st Contact Info) Description 09/07/2023 Notes Only Nephrology [place] [address] Nettie Davis APRN [facility] [place] [address] Social History Tobacco Use Types Packs/Day Years [...] time. Nettie Davis APRN Nephrology/Hypertension Pager # [phone] documented in this encounter Plan of Treatment Not on file documented as of this encounter Visit Diagnoses Not on filedocumented in this encounter Care Teams Case Maker Relationship Specialty Start Date End Date Kimani Leger MD [address] [place] [address] PCP - General Family Medicine 02/10/21 documented as of this encounter
--- OUTSIDE RECORDS SUMMARY | 2024-01-03 16:14 | XMS_ITS | Encounter Summary ---
[place] [address] Care Team Providers Care Passenger Service Representative Name Role Phone Jarad Keller DANIKA Primary Care Provider [phone] Encounter Details Date Type Department Care Team (Late st Contact Info) Description 11/27/2020 Telephone [place] [address] Sherie Mccallum, [place] [facility] [place] [place] [address] Social History Tobacco Use Types Packs/Day Years [...] filedocumented in this encounter Care Teams Passenger Service Representative Relationship Specialty Start Date End Date Jarad Keller DNP PCP - General Family Medicine 06/05/18 02/09/21 documented as of this encounter
--- OUTSIDE RECORDS SUMMARY | 2024-01-03 16:14 | XMS_ITS | Encounter Summary ---
[place] [address] Care Team Providers Care Department Mgr Name Role Phone Kimani Leger MD Primary Care Provider [phone] Reason for Referral * Diagnostic Test (Routine) - Closed Specialty Diagnoses / Procedures Referred By Puneet hallman Referred To Contact Radiology Diagnoses ESRD (end stage renal disease) Procedures IR Dialysis Access - AV Fistula Evaluations Simi Mcfadden APRN [facility] [address] [place] [address] Referral ID Status Reason Start Date Expiration Date V isits Requested Visits Authorized [id number] Closed Specialty Service Requested 12/22/2021 06/24/2023 1 1 Reason for Visit * Diagnostic Test (Routine) - Closed Specialty Diagnoses / Procedures Referred By Puneet hallman Referred To Contact Radiology Diagnoses ESRD (end stage renal disease) Procedures IR Dialysis Access - AV Fistula Evaluations Simi Mcfadden APRN [facility] [place] [address] [facility] [place] [address] Referral ID Status Reason Start Date Expiration Date V isits Requested Visits Authorized [id number] Closed Specialty Service Requested 12/22/2021 06/24/2023 1 1 Encounter Details Date Type Department Care Team (Latest Contact Info) Description 01/25/2022 7:30 AM EDT - 01/25/2022 11:59 PM EDT Hospital En[place] [address] Simi Mcfadden APRN [facility] [place] [address] ESRD (end stage renal disease) [...] the AV anastomosis, resolved with 7 mm WASTE MINIMIZATION TECHNICIAN. Additional 5 mm WASTE MINIMIZATION TECHNICIAN of the AV anastomosis was performed. Plan: [...] a permanent image was stored. A 5 Gibralt[place] sheath was placed. Access technique: Micropuncture set [...] Angioplasty balloon(s): 7 mm x 40 mm [place] Angioplasty of the juxta-anastomotic location was performed. Angioplasty balloon(s): 5 mm x 40 mm [place] Final fistulagram Final fistulagram was performed. Findings: [...] who have questions please contact the health care aide that requested your imaging first. ? Electronically signed by: Roderick Castillo MD, [facility] ([phone]), at 01/27/2022 7:26 AM Narrative 01/27/2022 7:26 [...] the AV anastomosis, resolved with 7 mm WASTE MINIMIZATION TECHNICIAN. Additional 5 mm PTAof the AV anastomosis [...] a permanent image was stored. A 5 Gibraltarian sheath wasplaced. Access technique: Micropuncture set with [...] Angioplasty balloon(s): 7 mm x 40 mm [place] Angioplasty of the juxta-anastomotic location was performed. Angioplasty balloon(s): 5 mm x 40 mm [place] Final fistulagram Final fistulagram was performed. Findings: [...] patients who have questions please contactthe health care aide that requested your imaging first. Electronically signed by: Roderick Castillo MD, [facility]([phone]), at 01/27/2022 7:26 AM Simi Mcfadden MARKET RESEARCH WORKER IMG IR ORDERABLES documented in this encounter Visit Diagnoses Diagnosis ESRD (end stage renal disease) End stage renal disease documented in this encounter Care Teams Department Mgr Relationship Specialty Start Date End Date Kimani Leger MD [address] [place] [address] PCP - General Family Medicine 02/10/21 documented as of this encounter
--- OUTSIDE RECORDS SUMMARY | 2024-01-03 16:14 | XMS_ITS | Encounter Summary ---
[place] [address] Care Team Providers Care Truck Driver Flatbed Name Role Phone Jarad Keller DNP Primary Care Provider [phone] Encounter Details Date Type Department Care Team (Late st Contact Info) Description 07/30/2020 Telephone Solid Organ [place] [address] Cecilia Brooke LPN Social History Tobacco Use [...] EDT Called and spoke with staff at [facility]. Per staff recent hemoglobin A1C completed 07/08/20 was 11. Faxing over labs to [phone]. Advised to call back kidney transplant clinic with any questions or updates. documented in this encounter Plan of Treatment Not on file documented as of this encounter Visit Diagnoses Not on filedocumented in this encounter Care Teams Truck Driver Flatbed Relationship Specialty Start Date End Date Jarad Keller DNP PCP - General Family Medicine 06/05/18 02/09/21 documented as of this encounter
--- OUTSIDE RECORDS SUMMARY | 2024-01-03 16:14 | XMS_ITS | Encounter Summary ---
[place] [address] Care Team Providers Care Protection Mgr Name Role Phone Kimani Leger MD Primary Care Provider [phone] Reason for Visit * Reason Onset Date Comments Appointment 06/09/2021 Encounter Details Date Type Department Care Team (Late st Contact Info) Description 06/09/2021 Telephone [place] [address] Harmeet Arvizu MD [facility] [place] [address] Appointment Social History Tobacco Use Types Packs/Day [...] on filedocumented in this encounter Care Teams Protection Mgr Relationship Specialty Start Date End Date Kimani Leger MD [facility] [place] [address] PCP - General Family Medicine 02/10/21 documented as of this encounter
--- OUTSIDE RECORDS SUMMARY | 2024-01-03 16:14 | XMS_ITS | Encounter Summary ---
Author Organization [facility] [place] [address] Care Team Providers Care Spanish Translator Name Role Phone Kimani Leger MD Primary Care Provider Encounter Details Date Type Department Care Team (Late st Contact Info) Description 01/25/2022 7:30 AM EDT - 01/25/2022 9:30 [place] [address] Jose Light MD [facility] [place] [address] FISTULAGRAM Social History Tobacco Use Types Packs/Day [...] Khan RN - 01/25/2022 10:02 AM EDT [facility] Vascular and Interventional Radiology Discharge [...] is during regular office hours, please call [phone]. If it is after regular office hours, or on weekends or holidays, please call [phone] and ask to speak to the Railroad Car Truck Builder stoker installation mechanic for Interventional Radiology. You have received medication [...] time. Pt discharged home via ride service, [facility]. Lnida GIMENEZ documented in this encounter Plan of [...] CHEMISTRY ORDERABL ES [facility] [place] [address] * POCT Glucose (01/25/2022 6:39 AM EDT) Glucose, POC 178 65 - 199 mg/dL [facility] Comment: Supplemental ranges: <140 mg/dL before meals <180 mg/dL all other times of the day Blood 01/25/2022 6:39 AM EDT 01/25/2022 6:39 AM EDT Jose Light MD POINT OF CARE TEST O RDERABLES [facility] [place] [address] documented in this encounter Visit Diagnoses Not [...] of Surgery (Day of Procedure) 07 ([facility] - Prov ider: Mimi Cole RN) documented in this encounter Care Teams Spanish Translator Relationship Specialty Start Date End Date Kimani Leger MD [facility] [place] [address] PCP - General Family Medicine 02/10/21 documented as of this encounter
--- OUTSIDE RECORDS SUMMARY | 2024-01-03 16:14 | XMS_ITS | Encounter Summary ---
Author Organization [facility] [place] [address] Care Team Providers Care Mortgage Collector Name Role Phone Jarad Keller DNP Primary Care Provider [phone] Encounter Details Date Type Department Care Team (Late st Contact Info) Description 11/04/2020 2:38 [place] [address] Wendie, Too Mcfarlane MD [facility] [place] [address] Herman Turner MD [facility] [place] [address] Anesthesia Record Procedure Summary Procedure Name Responsible [...] 1426; metacarpal vein (top of hand), right; [id number] catheter system; Anatomical Landmarks; 22 gauge; Laura [...] Procedure Summary Date: 11/04/20 Room / Location: [facility] INTERVENTIONAL RADIOLOGY / [facility] Anesthesia Start: 1438 Anesthesia Stop: 1613 Procedure: FISTULAGRAM (Left ) Diagnosis: (ESRD (end stage renal disease)) Surgeons: Ceasar Gonzalez MD Responsible Provider: Too Pressley MD Anesthesia Type: MAC ASA Status: 3 All Anesthesia Providers: Anesthesiologist: oTo Pressley MD FOOTWEAR SALES LEADER: Arnel Rodriguez CRNA Student Nurse Amusement Park Ride Mechanic: Michelle Tee Vitals Value Taken Time BP 165/84 11/04/20 1615 Temp 36.2 ??C (97.2 ??F) 11/04/20 1605 Pulse Resp 16 11/04/20 1615 SpO2 93 % 11/04/20 1615 Pain Level 0 11/04/20 1615 Patient Location: PACU/[facility] Level of Consciousness: Awake and Alert [...] AV Fistula Evaluations 06/17/2020 Kimani Larson MD [facility] INTERVENTIONL RAD ??? PERIPHERAL IRIDOTOMY 04/06/2012 OD Swendris ??? PRO EXTRACAPSULAR CATARACT RMVL INSERTION IO LENS PROSTH CPLX WO ECP 07/18/2012 ??? PRO EXTRACAPSULAR CATARACT RMVL INSERTION IO LENS PROSTH W/O ECP 11/29/2012 CATARACT EXTRACTION, EXTRACAPSULAR, W/ LENS INSERTION performed by Erasmo Bajwa MD at [facility] OSC ? ? PRO REPAIR COMPLEX RETINA DETACH VITRECTOMY & MEMB PEEL 04/03/2012, 04/03/12 REPAIR COMPLEX RETINAL DETACHMENT, W/ VITRECTOMY, MEMBRANE PEELING performed by Matteo Diane MD at [facility] MAIN OR ? ? PRO REPAIR COMPLEX RETINA DETACH VITRECTOMY & MEMB PEEL 07/31/2012 REPAIR COMPLEX RETINAL DETACHMENT, W/ VITRECTOMY, MEMBRANE PEELING performed by Matteo Diane MD at [facility] MAIN OR ? ? PRO REPAIR COMPLEX RETINA DETACH VITRECTOMY & MEMB PEEL 01/08/2013 REPAIR COMPLEX RETINAL DETACHMENT, W/ VITRECTOMY, MEMBRANE PEELING performed by Matteo Diane MD at [facility] MAIN OR ??? PRO TX [...] I will be working with either a FOOTWEAR SALES LEADER or resident physician. A resident physician means a physician who is in training to be an anesthesiologist. The patient acknowledged these risks and would like to proceed with the anesthesia plan. Sedation and local anesthesia by proceduralist. GA back. Region - Other Informed Consent: Anesthetic plan and risks discussed with patient. Plan discussed with FOOTWEAR SALES LEADER. Anesthesia Screening documented in this encounter Plan [...] EDT documented in this encounter Care Teams Mortgage Collector Relationship Specialty Start Date End Date Jarad Keller DNP PCP - General Family Medicine 06/05/18 02/09/21 documented as of this encounter
--- OUTSIDE RECORDS SUMMARY | 2024-01-03 16:14 | XMS_ITS | Encounter Summary ---
[place] [address] Care Team Providers Care Fire Tower Keeper Name Role Phone Kimani Leger MD Primary Care Provider [phone] Encounter Details Date Type Department Care Team (Late st Contact Info) Description 08/12/2022 6:20 PM EDT Ancillary Procedure [place] [address] [place] [address] Social History Tobacco Use Types Packs/Day Years [...] LIBRARY ORD ERABLES Performing Organization Address City/State/[facility] Co de Phone Number [place], [place] documented in this encounter Visit Diagnoses Not on filedocumented in this encounter Care Teams Fire Tower Keeper Relationship Specialty Start Date End Date Kimani Leger MD [address] [place] [address] PCP - General Family Medicine 02/10/21 documented as of this encounter
--- OUTSIDE RECORDS SUMMARY | 2024-01-03 16:14 | XMS_ITS | Encounter Summary ---
Author Organization [facility] [place] [address] Care Team Providers Care Sfdc Consultant Name Role Phone Kimani Leger MD Primary Care Provider [phone] Encounter Details Date Type Department Care Team (Late st Contact Info) Description 01/17/2023 [place] [phone] Too Morgan MD [facility] [place] [address] Social History Tobacco Use Types Packs/Day Years [...] on filedocumented in this encounter Care Teams Sfdc Consultant Relationship Specialty Start Date End Date Kimani Leger MD [address] [place] [address] PCP - General Family Medicine 02/10/21 documented as of this encounter
--- OUTSIDE RECORDS SUMMARY | 2024-01-03 16:14 | XMS_ITS | Encounter Summary ---
[place] [address] Care Team Providers Care Clerk Carrier Name Role Phone Jarad Keller DNP Primary Care Provider [phone] Encounter Details Date Type Department Care Team (Late st Contact Info) Description 08/27/2020 Telephone Solid [place] [address] Cheryl Presley RD [facility] DR [place] [address] Social History Tobacco Use Types Packs/Day Years [...] Notes * Telephone Encounter - Cheryl Presley, FREDERCIK - 08/27/2020 11:05 AM EDT Attempted to f/u with Maurice over the phone today regarding weight loss progress; a nutrition-relatedgoal previously established for kidney transplantation. This service writer advisor unable to contact Maurice as mobile number listed in chart not belonging to him. This service writer advisor obtained pt's 's (Kaye) phone number from dialysis center - number disconnected. Asked dialysis center to inform Maurice tomorrow when he c omes in for dialysis treatment that service writer advisor attempting to get in touch with him and to give service writer advisor acall when pt gets a chance. roads and parking lots sweeper operator agreeable to plan. Thank you, Cheryl Presley RD documented in this encounter Plan of Treatment Not on file documented as of this encounter Visit Diagnoses Not on filedocumented in this encounter Care Teams Clerk Carrier Relationship Specialty Start Date End Date Jarad Keller DNP PCP - General Family Medicine 06/05/18 02/09/21 documented as of this encounter
--- OUTSIDE RECORDS SUMMARY | 2024-01-03 16:14 | XMS_ITS | Encounter Summary ---
Author Organization [facility] [place] [place] [address] Care Team Providers Care Furnace Stock Inspector Name Role Phone Kimani Leger MD Primary Care Provider [phone] Encounter Details Date Type Department Care Team (Late st Contact Info) Description 02/25/2023 [place] [address] Too Morgan MD [facility] [place] [address] Social History Tobacco Use Types Packs/Day Years [...] on filedocumented in this encounter Care Teams Furnace Stock Inspector Relationship Specialty Start Date End Date Kimani Leger MD [address] [place] [address] PCP - General Family Medicine 02/10/21 documented as of this encounter
--- OUTSIDE RECORDS SUMMARY | 2024-01-03 16:14 | XMS_ITS | Encounter Summary ---
[place] [address] Care Team Providers Care Trackman Name Role Phone Kimani Leger MD Primary Care Provider [phone] Encounter Details Date Type Department Care Team (Late st Contact Info) Description 12/28/2023 6:40 PM EDT Ancillary Procedure [place] [address] Bradford Momin MD [facility] [place] [address] Social History Tobacco Use Types Packs/Day Years [...] FILM LIBRARY ORD ERABLES Performing Organization Address City/State/[facility] Co de Phone Number [place], [place] documented in this encounter Visit Diagnoses Not on filedocumented in this encounter Care Teams Trackman Relationship Specialty Start Date End Date Kimani Leger MD [address] [place] [address] PCP - General Family Medicine 02/10/21 documented as of this encounter
--- OUTSIDE RECORDS SUMMARY | 2024-01-03 16:14 | XMS_ITS | Encounter Summary ---
[place] [address] Care Team Providers Care Buggy Runner Name Role Phone Kimani Leger MD Primary Care Provider [phone] Encounter Details Date Type Department Care Team (Late st Contact Info) Description 09/20/2023 7:15 PM EDT Ancillary Procedure [place] [address] Kimani Leger MD [facility] [place] [address] Social History Tobacco Use Types [...] FILM LIBRARY ORD ERABLES Performing Organization Address City/State/[facility] Co de Phone Number [place], [place] documented in this encounter Visit Diagnoses Not on filedocumented in this encounter Care Teams Buggy Runner Relationship Specialty Start Date End Date Kimani Leger MD [address] [place] [address] [place] [address] PCP - General Family Medicine 02/10/21 documented as of this encounter
--- OUTSIDE RECORDS SUMMARY | 2024-01-03 16:14 | XMS_ITS | Encounter Summary ---
[place] [address] Care Team Providers Care Pipeliner Name Role Phone Jarad Keller DANIKA Primary Care Provider [phone] Reason for Referral * Diagnostic Test (Routine) - Closed Specialty Diagnoses / Procedures Referred By Puneet hallman Referred To Contact Radiology Diagnoses ESRD (end stage renal disease) Procedures IR Dialysis Access - AV Fistula Evaluations Too Morgan MD [facility] [place] [address] [place] [address] Referral ID Status Reason Start Date Expiration Date V isits Requested Visits Authorized [id number] Closed Specialty Service Requested 10/21/2020 04/22/2022 1 1 Reason for Visit * Diagnostic Test (Routine) - Closed Specialty Diagnoses / Procedures Referred By Puneet hallman Referred To Contact Radiology Diagnoses ESRD (end stage renal disease) Procedures IR Dialysis Access - AV Fistula Evaluations Too Morgan MD [facility] [place] [address] [facility] [place] [address] Referral ID Status Reason Start Date Expiration Date V isits Requested Visits Authorized [id number] Closed Specialty Service Requested 10/21/2020 04/22/2022 1 1 Encounter Details Date Type Department Care Team (Latest Contact Info) Description 11/04/2020 2:30 PM EDT - 11/04/2020 11:59 PM EDT Hospital [place] [address] Too Morgan MD [facility] [place] [address] ESRD (end stage renal disease) Discharge Disposition: [...] Questions Answers Where will study be performed? [facility] Radiology [120] Laterality Left Is the [...] stenosis AV anastomosis resolved with 5 mm TRAFFIC SIGN SUPERVISOR. 2. Moderate/severe 2 cm juxta anastomotic cephalic vein stenosis resolved with 6 mm TRAFFIC SIGN SUPERVISOR. 3. Outflow from elbow centrally via both [...] AV Fistula Evaluations 06/17/2020 Kimani Larson MD [facility] INTERVENTIONL RAD ??? PERIPHERAL IRIDOTOMY 04/06/2012 OD Swendris ??? PRO EXTRACAPSULAR CATARACT RMVL INSERTION IO LENS PROSTH CPLX WO ECP 07/18/2012 ??? PRO EXTRACAPSULAR CATARACT RMVL INSERTION IO LENS PROSTH W/O ECP 11/29/2012 CATARACT EXTRACTION, EXTRACAPSULAR, W/ LENS INSERTION performed by Erasmo Bajwa MD at [facility] OSC ? ? PRO REPAIR COMPLEX RETINA DETACH VITRECTOMY & MEMB PEEL 04/03/2012, 04/03/12 REPAIR COMPLEX RETINAL DETACHMENT, W/ VITRECTOMY, MEMBRANE PEELING performed by Matteo Diane MD at [facility] MAIN OR ? ? PRO REPAIR COMPLEX RETINA DETACH VITRECTOMY & MEMB PEEL 07/31/2012 REPAIR COMPLEX RETINAL DETACHMENT, W/ VITRECTOMY, MEMBRANE PEELING performed by Matteo Diane MD at [facility] MAIN OR ? ? PRO REPAIR COMPLEX RETINA DETACH VITRECTOMY & MEMB PEEL 01/08/2013 REPAIR COMPLEX RETINAL DETACHMENT, W/ VITRECTOMY, MEMBRANE PEELING performed by Matteo Diane MD at [facility] MAIN OR ??? PRO TX EXTENSIVE [...] Questions Answers Where will study be performed? [facility] Radiology [120] Laterality Left Is the [...] stenosis AV anastomosis resolved with 5 mm TRAFFIC SIGN SUPERVISOR. 2. Moderate/severe 2 cm juxta anastomotic cephalic vein stenosis resolved with 6 mm TRAFFIC SIGN SUPERVISOR. 3. Outflow from elbow centrally via both [...] AV Fistula Evaluations 06/17/2020 Kimani Larson MD [facility] INTERVENTIONL RAD ??? PERIPHERAL IRIDOTOMY 04/06/2012 OD Swendris ??? PRO EXTRACAPSULAR CATARACT RMVL INSERTION IO LENS PROSTH CPLX WO ECP 07/18/2012 ??? PRO EXTRACAPSULAR CATARACT RMVL INSERTION IO LENS PROSTH W/O ECP 11/29/2012 CATARACT EXTRACTION, EXTRACAPSULAR, W/ LENS INSERTION performed by Erasmo Bajwa MD at [facility] OSC ? ? PRO REPAIR COMPLEX RETINA DETACH VITRECTOMY & MEMB PEEL 04/03/2012, 04/03/12 REPAIR COMPLEX RETINAL DETACHMENT, W/ VITRECTOMY, MEMBRANE PEELING performed by Matteo Diane MD at [facility] MAIN OR ? ? PRO REPAIR COMPLEX RETINA DETACH VITRECTOMY & MEMB PEEL 07/31/2012 REPAIR COMPLEX RETINAL DETACHMENT, W/ VITRECTOMY, MEMBRANE PEELING performed by Matteo Diane MD at [facility] MAIN OR ? ? PRO REPAIR COMPLEX RETINA DETACH VITRECTOMY & MEMB PEEL 01/08/2013 REPAIR COMPLEX RETINAL DETACHMENT, W/ VITRECTOMY, MEMBRANE PEELING performed by Matteo Diane MD at [facility] MAIN OR ??? PRO TX EXTENSIVE [...] technique under ultrasound guidance and a 4 Syriac sheath placed facing peripherally. ??4 Syriac sheath exchanged over guidewire for a 6 Syriac sheath. ??Guidewire and angled catheter were placed [...] to AV anastomosis, resolved with 7 mm TRAFFIC SIGN SUPERVISOR. 3. Coil from prior intervention at outside hospital in the forearm, unchanged from 06/17/20. 4. AV anastomosis not stenotic. Plan/Disposition: 1) To Same Day for recovery, may discharge to home when meets criteria. 2) Left arm dialysis fistula ready for use. Mainstreaming Facilitator(s): Resident/Fellow: Narinder Rivera Attending: Dr. Larson. ??I, [...] mLs documented in this encounter Care Teams Pipeliner Relationship Specialty Start Date End Date Jarad Keller DNP PCP - General Family Medicine 06/05/18 02/09/21 documented as of this encounter
--- OUTSIDE RECORDS SUMMARY | 2024-01-03 16:14 | XMS_ITS | Encounter Summary ---
[place] [address] Care Team Providers Care Distance Learning Technician Name Role Phone Jarad Keller DANIKA Primary Care Provider [phone] Reason for Referral * Consultation (Routine) - Closed Specialty Diagnoses / Procedures Referred By Puneet hallman Referred To Contact Neurology Diagnoses Diego, Too Wood MD [facility] [place] [address] [facility] [place] Neurology [address] [place] [address] Referral ID Status Reason Start Date Expiration Date Visits Re quested Visits Authorized [id number] Closed 09/04/2020 09/04/2021 12 12 Encounter Details Date Type Department Care Team (Late st Contact Info) Description 09/04/2020 Orders Only [place] [address] Too Morgan MD [facility] [place] [address] Fall, sequela Social History Tobacco Use Types [...] sequela documented in this encounter Care Teams Distance Learning Technician Relationship Specialty Start Date End Date Jarad Keller DNP PCP - General Family Medicine 06/05/18 02/09/21 documented as of this encounter
--- OUTSIDE RECORDS SUMMARY | 2024-01-03 16:14 | XMS_ITS | Encounter Summary ---
Author Organization [facility] [place] [address] Care Team Providers Care Medical Dir Name Role Phone Kimani Leger MD Primary Care Provider Reason for Visit * Reason Comments PDR * Consultation (Routine) - Closed Specialty Diagnoses / Procedures Referred By Puneet hallman Referred To Contact Ophthalmology Diagnoses Type 2 diabetes mellitus with unspecified diabetic retinopathy without macular edema Kimani Leger MD [address] [place] [address] [place] [address] Harmeet Arvizu MD [facility] [place] [address] Referral ID Status Reason Start Date Expiration Date V isits Requested Visits Authorized [id number] Closed Consult, [facility] PCP Updated and/or Approved 01/28/2021 07/28/2021 6 6 Encounter Details Date Type Department Care Team (Latest Contact Info) Description 06/08/2021 12:15 PM EST Office [place] [address] Harmeet Arvizu MD [facility] [place] [address] Proliferative diabetic retinopathy of left eye with [...] category documented in this encounter Care Teams Medical Dir Relationship Specialty Start Date End Date Kimani Leger MD [address] [place] [address] PCP - General Family Medicine 02/10/21 documented as of this encounter
--- OUTSIDE RECORDS SUMMARY | 2024-01-03 16:14 | XMS_ITS | Encounter Summary ---
[place] [address] Care Team Providers Care Armature Repairer Name Role Phone Kimani Leger MD Primary Care Provider [phone] Encounter Details Date Type Department Care Team (Late st Contact Info) Description 01/18/2022 1:30 [place] [address] Eliot Rivers MD [facility] [place] [address] Johanna Green [place] [address] Anesthesia Record Procedure Summary Procedure Name Responsible [...] Evaluations 06/17/[address] [facility] INTERVENTIONL RAD ??? IR DIALYSIS ACCESS - AV FISTULA EVALUATIONS 11/04/2020 IR Dialysis Access - AV Fistula Evaluations 11/04/[address] [facility] INTERVENTIONL RAD ??? PERIPHERAL IRIDOTOMY 04/06/2012 OD Swendris ??? PRO EXTRACAPSULAR CATARACT RMVL INSERTION IO LENS PROSTH CPLX WO ECP 07/18/2012 ??? PRO EXTRACAPSULAR CATARACT RMVL INSERTION IO LENS PROSTH W/O ECP 11/29/2012 CATARACT EXTRACTION, EXTRACAPSULAR, W/ LENS INSERTION performed by Erasmo Bajwa MD at [facility] OSC ? ? PRO REPAIR COMPLEX RETINA DETACH VITRECTOMY & MEMB PEEL 04/03/2012, 04/03/12 REPAIR COMPLEX RETINAL DETACHMENT, W/ VITRECTOMY, MEMBRANE PEELING performed by Matteo Diane MD at [facility] MAIN OR ? ? PRO REPAIR COMPLEX RETINA DETACH VITRECTOMY & MEMB PEEL 07/31/2012 REPAIR COMPLEX RETINAL DETACHMENT, W/ VITRECTOMY, MEMBRANE PEELING performed by Matteo Diane MD at [facility] MAIN OR ? ? PRO REPAIR COMPLEX RETINA DETACH VITRECTOMY & MEMB PEEL 01/08/2013 REPAIR COMPLEX RETINAL DETACHMENT, W/ VITRECTOMY, MEMBRANE PEELING performed by Matteo Diane MD at [facility] MAIN OR ??? PRO TX EXTENSIVE [...] on filedocumented in this encounter Care Teams Armature Repairer Relationship Specialty Start Date End Date Kimani Leger MD [address] [place] [address] PCP - General Family Medicine 02/10/21 documented as of this encounter
--- OUTSIDE RECORDS SUMMARY | 2024-01-03 16:14 | XMS_ITS | Encounter Summary ---
Author Organization [facility] [place] [address] Care Team Providers Care Encoding Machine Operator Name Role Phone Jarad Keller DNP Primary Care Provider [phone] Encounter Details Date Type Department Care Team (Latest Contact Info) Description 11/04/2020 1:16 PM EDT - 11/04/2020 5:15 PM EDT Hospital Encounter [place] [address] Ceasar Gonzalez MD [facility] [place] [address] Discharge Disposition: Home Social History Tobacco Use [...] Morrow RN - 11/04/2020 4:35 PM EDT [facility] Vascular and Interventional Radiology Discharge Instructions [...] is during regular office hours, please call [phone]. If it is after regular office hours, or on weekends or holidays, please call [phone] and ask to speak to the Day Care Assistant telecommunication tower technician for Interventional Radiology. You have received [...] Glucose, POC 172 65 - 199 mg/dL [facility] Comment: Supplemental ranges: <140 mg/dL before meals <180 mg/dL all other times of the day Blood 11/04/2020 1:59 PM EDT 11/04/2020 1:59 PM EDT Ceasar Gonzalez MD POINT OF CARE TEST O RDERABLES Performing Organization Address [facility] Co de Phone Number [facility] [place] [address] * Potassium (11/04/2020 1:34 PM EDT) Potassium 3.9 3.5 - 5.0 mmol/L [facility] [...] Vanessa MD CHEMISTRY ORDERABLES Performing Organization Address [facility] Co de Phone Number [facility] [place] [address] documented in this encounter Visit Diagnoses Not on filedocumented in this encounter Active and Recently Administered Medications Care Teams Encoding Machine Operator Relationship Specialty Start Date End Date Jarad Keller DNP PCP - General Family Medicine 06/05/18 02/09/21 documented as of this encounter
--- OUTSIDE RECORDS SUMMARY | 2024-01-03 16:14 | XMS_ITS | Encounter Summary ---
Author Organization [facility] [place] [address] Care Team Providers Care Grain Drier Name Role Phone Kimani Leger MD Primary Care Provider [phone] Encounter Details Date Type Department Care Team (Latest Contact Info) Description 01/25/2022 6:10 AM EDT - 01/25/2022 12:21 PM EDT Hospital Encounter [place] [address] Jose Light MD [facility] DR DIAG[place]ST[place] [address] Discharge Disposition: Home Social History Tobacco Use [...] RN - 01/25/2022 10:02 AM EDT [facility] Vascular and Interventional Radiology Discharge [...] is during regular office hours, please call [phone]. If it is after regular office hours, or on weekends or holidays, please call [phone] and ask to speak to the Sheeter Operator refrigeration mechanic helper for Interventional Radiology. You have received [...] time. Pt discharged home via ride service, [facility]. Linda GIMENEZ documented in this [...] EDT) Potassium 4.2 3.5 - 5.0 mmol/L [facility] Lab Johanna Green APRN CHEMISTRY ORDERABL ES [facility] [place] [address] * POCT Glucose (01/25/2022 6:39 AM EDT) Glucose, POC 178 65 - 199 mg/dL [facility] Comment: Supplemental ranges: <140 mg/dL before meals <180 mg/dL all other times of the day Blood 01/25/2022 6:39 AM EDT 01/25/2022 6:39 AM EDT Jose Light MD POINT OF CARE TEST O RDERABLES [facility] [place] [address] documented in this encounter Visit Diagnoses Not [...] of Surgery (Day of Procedure) 0725 ([facility] - Prov ider: Mimi Cole RN) documented in this encounter Care Teams Grain Drier Relationship Specialty Start Date End Date Kimani Leger MD [address] [place] [address] PCP - General Family Medicine 02/10/21 documented as of this encounter
--- OUTSIDE RECORDS SUMMARY | 2024-01-03 16:14 | XMS_ITS | Encounter Summary ---
[place] [address] Care Team Providers Care Senior Net Developer Architect Name Role Phone Jarad Keller DNP Primary Care Provider [phone] Encounter Details Date Type Department Care Team (Late st Contact Info) Description 01/29/2021 Telephone [place] [address] Cherelle Colvin RN Social History Tobacco Use [...] 01/29/2021 9:32 AM EDT I spoke with [facility]. They confirmed Maurice's mailing [...] filedocumented in this encounter Care Teams Senior Net Developer Architect Relationship Specialty Start Date End Date Jarad Keller DNP PCP - General Family Medicine 06/05/18 02/09/21 documented as of this encounter
--- OUTSIDE RECORDS SUMMARY | 2024-01-03 16:15 | XMS_ITS | Encounter Summary ---
Author Organization [facility] [place] [address] Care Team Providers Care Information Management Officer Name Role Phone Jarad Keller DANIKA Primary Care Provider [phone] Reason for Visit * Reason Onset Date Comments Follow-up 05/08/2020 Encounter Details Date Type Department Care Team (Late st Contact Info) Description 05/08/2020 Telephone [place] [address] Harmeet Arvizu MD [facility] [place] [address] Follow-up Social History Tobacco Use Types Packs/Day [...] call and schedule follow up from recent [facility] visit for Dr Arvizu:Follow up retina in [...] on filedocumented in this encounter Care Teams Information Management Officer Relationship Specialty Start Date End Date Jarad Keller DNP PCP - General Family Medicine 06/05/18 02/09/21 documented as of this encounter
--- OUTSIDE RECORDS SUMMARY | 2024-01-03 16:15 | XMS_ITS | Encounter Summary ---
[place] [address] Care Team Providers Care Tool Mechanic Name Role Phone Jarad Keller DNP Primary Care Provider [phone] Encounter Details Date Type Department Care Team (Late st Contact Info) Description 02/06/2020 3:00 PM EDT Office [place] [address] Encounter for pre-transplant evaluation for kidney transplant [...] transplant documented in this encounter Care Teams Tool Mechanic Relationship Specialty Start Date End Date Jarad Keller DNP PCP - General Family Medicine 06/05/18 02/09/21 documented as of this encounter
--- OUTSIDE RECORDS SUMMARY | 2024-01-03 16:15 | XMS_ITS | Encounter Summary ---
[place] [address] Care Team Providers Care Electric Motor Analyst Name Role Phone Jarad Keller DNP Primary Care Provider [phone] Encounter Details Date Type Department Care Team (Late st Contact Info) Description 04/22/2020 2:00 PM [facility] Tech [place] [address] Harmeet Arvizu MD 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 This [...] category documented in this encounter Care Teams Electric Motor Analyst Relationship Specialty Start Date End Date Jarad Keller DNP PCP - General Family Medicine 06/05/18 02/09/21 documented as of this encounter
--- OUTSIDE RECORDS SUMMARY | 2024-01-03 16:15 | XMS_ITS | Encounter Summary ---
[place] [address] Care Team Providers Care Jelly Maker Name Role Phone Jarad Keller DNP Primary Care Provider [phone] Encounter Details Date Type Department Care Team (Late st Contact Info) Description 01/16/2020 Telephone [place] [address] Sherie Mccallum, [place] [facility] [place] [address] Social History Tobacco Use Types Packs/Day Years [...] intake. Left message for him to call keno writer back. Will await return call. documented in this encounter Plan of Treatment Not on file documented as of this encounter Visit Diagnoses Not on filedocumented in this encounter Care Teams Jelly Maker Relationship Specialty Start Date End Date Jarad Keller DNP PCP - General Family Medicine 06/05/18 02/09/21 documented as of this encounter
--- OUTSIDE RECORDS SUMMARY | 2024-01-03 16:15 | XMS_ITS | Encounter Summary ---
[place] [address] Care Team Providers Care Braille Transcriber Name Role Phone Jarad Keller DANIKA Primary Care Provider [phone] Encounter Details Date Type Department Care Team (Late st Contact Info) Description 01/18/2020 Telephone [place] [address] Sherie Mccallum, BROADCAST SUPERVISOR [facility] [place] [address] Social History Tobacco Use Types Packs/Day Years [...] evaluation. Cause of Kidney Disease: Diabetes Dialysis: [address] [place] [address] Height: 5'4 Weight: 100kg BMI: 37.8 Past [...] INSERTION performed by Erasmo Bajwa MD at [facility] ? ? PRO REPAIR COMPLEX RETINA DETACH VITRECTOMY & MEMB PEEL 04/03/2012, 04/03/12 REPAIR COMPLEX RETINAL DETACHMENT, W/ VITRECTOMY, MEMBRANE PEELING performed by Matteo Diane MD at [facility] MAIN OR ? ? PRO REPAIR COMPLEX RETINA DETACH VITRECTOMY & MEMB PEEL 07/31/2012 REPAIR COMPLEX RETINAL DETACHMENT, W/ VITRECTOMY, MEMBRANE PEELING performed by Matteo Diane MD at [facility] MA[facility] OR ? ? PRO REPAIR COMPLEX RETINA DETACH VITRECTOMY & MEMB PEEL 01/08/2013 REPAIR COMPLEX RETINAL DETACHMENT, W/ VITRECTOMY, MEMBRANE PEELING performed by Matteo Diane MD at [facility] OR ??? PRO TX [...] on filedocumented in this encounter Care Teams Braille Transcriber Relationship Specialty Start Date End Date Jarad Keller DNP PCP - General Family Medicine 06/05/18 02/09/21 documented as of this encounter
--- OUTSIDE RECORDS SUMMARY | 2024-01-03 16:15 | XMS_ITS | Encounter Summary ---
[place] [address] Care Team Providers Care Round Cutter Operator Name Role Phone Jarad Keller DANIKA Primary Care Provider [phone] Reason for Referral * Diagnostic Test (Routine) - Closed Specialty Diagnoses / Procedures Referred By Puneet hallman Referred To Contact Radiology Diagnoses ESRD (end stage renal disease) Procedures IR Dialysis Access - AV Fistula Evaluations Too Morgan MD [facility] [place] [address] [facility] [place] [address] Referral ID Status Reason Start Date Expiration Date V isits Requested Visits Authorized [id number] Closed Specialty Service Requested 06/03/2020 12/01/2021 1 1 Encounter Details Date Type Department Care Team (Late st Contact Info) Description 06/03/2020 Orders Only Nephrology [place] [address] Too Morgan MD [facility] [address] ESRD (end stage renal disease) Social History [...] experiencing decreased flows. ??No prior interventions by [facility] IR. 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 Remainder of patient's medical and surgical history, allergies, medications, and social/family history obtained below as previously outlined in patient's medical record. Per patient he fistula created in [place] about 5 years ago. He has undergone one prior fistulagram in [place] with intervention. Technique: After obtaining informed consent, [...] used to dilate the cephalic stenosis. ??Post GROUP LEADER radial artery arteriography showed resolution of the [...] stenosis AV anastomosis resolved with 5 mm GROUP LEADER 3. ??Moderate/severe 2 cm juxta anastomotic cephalic vein stenosis resolved with 6 mm GROUP LEADER. 4. ??Outflow from elbow centrally via both cephalic and basilic systems without central stenoses. 5. ??Coil from prior intervention at outside hospital in the forearm approximately 4 cm central to the AV anastomosis. ??Presumably placed in a side branch vein. Plan/Disposition: 1) To Same day recovery room, may discharge to home when meets criteria. 2) left upper extremity dialysis fistula ready for use. Wool Sorter(s): Resident/Fellow: Narinder Rivera Attending: Dr. Larson. ??I, [...] disease documented in this encounter Care Teams Round Cutter Operator Relationship Specialty Start Date End Date Jarad Keller DNP PCP - General Family Medicine 06/05/18 02/09/21 documented as of this encounter
--- OUTSIDE RECORDS SUMMARY | 2024-01-03 16:15 | XMS_ITS | Encounter Summary ---
Author Organization [facility] [place] [address] Care Team Providers Care Group Care Worker Name Role Phone Jarad Keller DANIKA Primary Care Provider [phone] Reason for Visit * Consultation (Routine) - Closed Specialty Diagnoses / Procedures Referred By Puneet hallman Referred To Contact Transplant Diagnoses ESRD (end stage renal disease) Procedures Txp Too Lynn MD [facility] [place] [address] Young Watts MD [facility] [place] [address] Referral ID Status Reason Start Date Expiration Date V isits Requested Visits Authorized [id number] Closed Consult, Test & Treat 12/18/2019 12/17/2020 1 1 Encounter Details Date Type Department Care Team (Latest Contact Info) Description 02/06/2020 9:00 AM EDT Clinical Support Solid [place] [address] Young Watts MD [facility] DR [place] [address] Pre-transplant evaluation for kidney transplant; ESRD (end [...] disease documented in this encounter Care Teams Group Care Worker Relationship Specialty Start Date End Date Jarad Keller DNP PCP - General Family Medicine 06/05/18 02/09/21 documented as of this encounter
--- OUTSIDE RECORDS SUMMARY | 2024-01-03 16:15 | XMS_ITS | Encounter Summary ---
[place] [address] Care Team Providers Care Licensed Occupational Therapist Name Role Phone Jarad Keller DNP Primary Care Provider [phone] Encounter Details Date Type Department Care Team (Late st Contact Info) Description 02/06/2020 2:00 PM EDT Office Visit [place] [address] Sherie Mccallum, ACCOUNTANT COST [facility] [place] [address] Pre-transplant evaluation for kidney transplant Social History [...] Cardiac stress test - every year - Mycology Teacher Does not have a mill roll operator 4. Labs: Serologies (immune status), ABO verification [...] his medical records can be found at [facility] and . Care providers include CHINO Casanova MD and Dr. Roy (Endocrine). - He would like to complete their transplant specific testing at [facility] or [facility] (pt is indifferent to either) so we [...] examination documented in this encounter Care Teams Licensed Occupational Therapist Relationship Specialty Start Date End Date Jarad Keller DNP PCP - General Family Medicine 06/05/18 02/09/21 documented as of this encounter
--- OUTSIDE RECORDS SUMMARY | 2024-01-03 16:15 | XMS_ITS | Encounter Summary ---
Author Organization [facility] [place] [address] Care Team Providers Care Psychiatric Social Worker Name Role Phone Jarad Keller DNP Primary Care Provider [phone] Reason for Visit * Reason Comments Procedure Encounter Details Date Type Department Care Team (Latest Contact Info) Description 01/04/2020 6:15 PM EDT Procedure [place] [address] Harmeet Arvizu MD [facility] [place] [address] Proliferative diabetic retinopathy of left eye with [...] about driving: We always recommend having a entry driver operator on the day you get an injection. [...] Normal and Not Expected side effects: Call [phone] (Eye Clinic) DAY or NIGHT, HOLIDAY or WEEKEND if you experience any of the following: = Severe, increasing pain in the eye = Significant, dramatic vision loss = Redness on and around the eye that gets worse, not better = Severe light sensitivity Call [phone] or go to the Emergency room immediately [...] of Eylea 2.0 mg left eye Assist: Associate Professor Of Library Media Anesthesia: Topical Proparacaine and topical 4% Lidocaine Complications: None Procedure: The patient was taken to the minor treatment suite where the patient was reidentified using name and birthdate as critical identifiers. The correct eye as the operative site was reidentified by a preplaced site maria r, and the consent form was actively reviewed by the records management assistant and the surgeon. The left eye was prepped including instillation of Betadine 5% into the left cul de sac for 5 minutes, facial prep with ophthalmic Betadine and placement of a lid speculum. The Surgeon performed hand washing preoperatively, used gloves, and wore a face mask or used no talking technique during the procedudre, as did the creative assistant. After topical anesthesia of the injection [...] call the Eye Clinic or Eye Doctor account solutions analyst, should they develop pain the treated [...] Eye documented in this encounter Care Teams Psychiatric Social Worker Relationship Specialty Start Date End Date Jarad Keller DNP PCP - General Family Medicine 06/05/18 02/09/21 documented as of this encounter
--- OUTSIDE RECORDS SUMMARY | 2024-01-03 16:15 | XMS_ITS | Encounter Summary ---
Author Organization [facility] [place] [address] Care Team Providers Care Solution Engineer Name Role Phone Jarad Keller DNP Primary Care Provider [phone] Reason for Visit * Reason Comments Procedure Eylea OS #2/3 Encounter Details Date Type Department Care Team (Latest Contact Info) Description 02/15/2020 2:00 PM EDT Procedure [place] [address] Harmeet Arvizu MD [facility] [place] [place] [address] Proliferative diabetic retinopathy of left eye with [...] about driving: We always recommend having a bus van driver on the day you get an [...] Normal and Not Expected side effects: Call [phone] (Eye Clinic) DAY or NIGHT, HOLIDAY or WEEKEND if you experience any of the following: = Severe, increasing pain in the eye = Significant, dramatic vision loss = Redness on and around the eye that gets worse, not better = Severe light sensitivity Call [phone] or go to the Emergency room immediately [...] of Eylea 2.0 mg left eye Assist: Induction Machine Operator Anesthesia: Topical Proparacaine and topical 4% Lidocaine Complications: None Procedure: The patient was taken to the minor treatment suite where the patient was reidentified using name and birthdate as critical identifiers. The correct eye as the operative site was reidentified by a preplaced site maria r, and the consent form was actively reviewed by the virtual customer assistant and the surgeon. The left eye was prepped including instillation of Betadine 5% into the left cul de sac for 5 minutes, facial prep with ophthalmic Betadine and placement of a lid speculum. The Surgeon performed hand washing preoperatively, used gloves, and wore a face mask or used no talking technique during the procedudre, as did the surgical corsetier. After topical anesthesia of the injection site [...] call the Eye Clinic or Eye Doctor telecommunications project manager, should they develop pain the treated [...] Eye documented in this encounter Care Teams Solution Engineer Relationship Specialty Start Date End Date Jarad Keller DNP PCP - General Family Medicine 06/05/18 02/09/21 documented as of this encounter
--- OUTSIDE RECORDS SUMMARY | 2024-01-03 16:15 | XMS_ITS | Encounter Summary ---
[place] [address] Care Team Providers Care Coffee Urn Attendant Name Role Phone Jarad Keller DNP Primary Care Provider [phone] Encounter Details Date Type Department Care Team (Late st Contact Info) Description 01/14/2020 Abstract [place] [address] Jessica Santos Social History Tobacco Use Types [...] on filedocumented in this encounter Care Teams Coffee Urn Attendant Relationship Specialty Start Date End Date Jarad Keller DNP PCP - General Family Medicine 06/05/18 02/09/21 documented as of this encounter
--- OUTSIDE RECORDS SUMMARY | 2024-01-03 16:15 | XMS_ITS | Encounter Summary ---
[place] [address] Care Team Providers Care Extractor Tender Raw Stock Name Role Phone Jarad Keller DNP Primary Care Provider [phone] Encounter Details Date Type Department Care Team (Late st Contact Info) Description 02/01/2020 Notes Only [place] [address] Simi Meek MSW Social History Tobacco Use [...] Country do you reside in? [place] 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 Current Living Situation: Rent [...] he was moving when he met to [place]. He came back 2 years ago. He is not part of any adventism or other social groups. I really don't [...] *No Product type* / Patient also has [place] Medicaid. Financial Status: Are bills up to date? Electric, water, oil, etc. are paid by the $1 million trust from the [facility] for his . Can you afford [...] big. Living donor fund explained? Yes. Transportation: [facility] ([facility]) to all of his appointments. Patient's understanding of their diagnosis: He says his kidneys have failed. Barriers to treatment plan: None noted at this time. LETTERER plan: Worker to continue to follow Maurice if the team decides to move forward with listing Maurice for transplant. GAURI VERNON Transplant Crown Blocker Pager [phone] documented in this encounter Plan of Treatment Not on file documented as of this encounter Visit Diagnoses Not on filedocumented in this encounter Care Teams Extractor Tender Raw Stock Relationship Specialty Start Date End Date Jarad Keller DNP PCP - General Family Medicine 06/05/18 02/09/21 documented as of this encounter
--- OUTSIDE RECORDS SUMMARY | 2024-01-03 16:15 | XMS_ITS | Encounter Summary ---
Author [place] [address] Care Team Providers Care Butting Saw Operator Name Role Phone Jarad Keller DNP Primary Care Provider [phone] Encounter Details Date Type Department Care Team (Late st Contact Info) Description 05/20/2020 Orders Only Nephrology [place] [address] Nettie Davis, INDUSTRIAL GAS SERVICE HELPER [facility] [place] [address] Social History Tobacco Use Types Packs/Day Years [...] on filedocumented in this encounter Care Teams Butting Saw Operator Relationship Specialty Start Date End Date Jarad Keller DNP PCP - General Family Medicine 06/05/18 02/09/21 documented as of this encounter
--- OUTSIDE RECORDS SUMMARY | 2024-01-03 16:15 | XMS_ITS | Encounter Summary ---
[place] [address] Care Team Providers Care Stick Roller Name Role Phone Jarad Keller DNP Primary Care Provider [phone] Encounter Details Date Type Department Care Team (Late st Contact Info) Description 02/06/2020 11:30 AM EDT Office Visit [place] [address] Pre-transplant evaluation for kidney transplant Social History [...] EDT TRANSPLANT NUTRITION Initial Transplant Note This press writer met with Maurice Rudolph a 59 y.o. [...] 08/2019) Dialysis History: HD T//S (initiated in [place] ~4 years ago per pt report) currently through [facility] for the last couple of years Food [...] oral capsule ??? OneTouch Verio Flex meter [facility] [place] BLOOD GLUCOSE THREE TIMES A DAY [...] unit (V-GO 20) Device 1 each by [facility]Non-Drug; Combo Route) route daily. Insulin pump to [...] means for contact provided. Plan communicated to Plasterer Apprentice for Documentation in patient's transplant medical record. [...] examination documented in this encounter Care Teams Stick Roller Relationship Specialty Start Date End Date Jarad Keller DNP PCP - General Family Medicine 06/05/18 02/09/21 documented as of this encounter
--- OUTSIDE RECORDS SUMMARY | 2024-01-03 16:15 | XMS_ITS | Encounter Summary ---
[place] [address] Care Team Providers Care Human Resource Statistician Name Role Phone Jarad Keller DNP Primary Care Provider [phone] Encounter Details Date Type Department Care Team (Late st Contact Info) Description 02/06/2020 10:30 AM EDT Office Visit [place] [address] Young Watts MD [facility] [place] [address] Type 2 diabetes mellitus with ESRD (end-stage [...] the patient received their treatment from is: [place], [place] ? 2016 Previously wait listed at [facility] Reason for referral: Evaluation for Kidney [...] up!!; 6 months ago stress test at [facility] Seborrhea Edentulous Balance problems uses cane Morbid [...] Bajwa MD at [facility] ? ? PRO REPAIR COMPLEX [...] Hx ??? 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 mv,iron/folic/D3/om-3/dha/epa (PRORENAL QD ORAL), ProRenal QD oral capsule, Disp: , Rfl: ??? OneTouch Verio Flex meter [facility] TEST BLOOD GLUCOSE THREE TIMES A DAY, [...] unit (V-GO 20) Device, 1 each by [facility]Non-Drug; Combo Route) route daily. Insulin pump to [...] from 02/06/2020 in Solid Organ Transplant at [facility] Weight 102.5 kg (226 lb) Height 163.8 [...] strength intact. Neurological: No asymmetries, DTRs or long lines operator Skin: no active lesions Assessment: Mr. Maurice [...] testing for TBI, needs psychosocial eval re: general doc issues at home ( is invalid due [...] 90 Minutes in direct face to face general counsel. documented in this encounter Plan of Treatment Not on file documented as of this encounter Visit Diagnoses Diagnosis Type 2 diabetes mellitus with ESRD (end-stage renal disease) Type II or unspecified type diabetes mellitus with renal manifestations, not stated as uncontrolled Pre-transplant evaluation for ESRD (end stage renal disease) Other specified pre-operative examination documented in this encounter Care Teams Human Resource Statistician Relationship Specialty Start Date End Date Jarad Keller DNP PCP - General Family Medicine 06/05/18 02/09/21 documented as of this encounter
--- OUTSIDE RECORDS SUMMARY | 2024-01-03 16:15 | XMS_ITS | Encounter Summary ---
[place] [address] Care Team Providers Care Manager Of Purchasing Name Role Phone Jarad Keller DANIKA Primary Care Provider [phone] Reason for Visit * Reason Onset Date Comments Appointment 04/18/2020 Encounter Details Date Type Department Care Team (Late st Contact Info) Description 04/18/2020 Tele[place] [address] Harmeet Arvizu MD [facility] [place] [address] Appointment Social History Tobacco Use Types Packs/Day [...] filedocumented in this encounter Care Teams Manager Of Purchasing Relationship Specialty Start Date End Date Jarad Keller DNP PCP - General Family Medicine 06/05/18 02/09/21 documented as of this encounter
--- OUTSIDE RECORDS SUMMARY | 2024-01-03 16:15 | XMS_ITS | Encounter Summary ---
[place] [address] Care Team Providers Care Stake Setter Name Role Phone Jarad Keller DNP Primary Care Provider [phone] Encounter Details Date Type Department Care Team (Late st Contact Info) Description 02/06/2020 12:30 PM EDT Office Visit [place] [address] Awaiting organ transplant status Social History Tobacco [...] Hernández - 02/06/2020 12:30 PM EDT Transplant Classification Inspector Note: Met with patient during the Kidney Class appointment to review medical and pharmacy benefits for transplant services. He is covered by Medicare A, B, and D ([facility]) as well as [place] Medicaid. He states that the dialysis FC ([facility]) helps him with his Medicaid. He [...] AB Secondary Plan: [place] Medicaid Pharmacy Carrier: [place] part D Phone: Drug Dose/Form # for [...] status documented in this encounter Care Teams Stake Setter Relationship Specialty Start Date End Date Jarad Keller DNP PCP - General Family Medicine 06/05/18 02/09/21 documented as of this encounter
--- OUTSIDE RECORDS SUMMARY | 2024-01-03 16:15 | XMS_ITS | Encounter Summary ---
Author Organization [facility] [place] [address] Care Team Providers Care Infrastructure Software Engineer Name Role Phone Jarad Keller DANIKA Primary Care Provider [phone] Reason for Visit * Reason Comments Eye Problem Procedure * Consultation (Routine) - Closed Specialty Diagnoses / Procedures Referred By Puneet hallman Referred To Contact Ophthalmology Diagnoses dme os Rylan Carrero M, OD [address] [place] [address] Harmeet Arvizu MD [facility] [place] [place] [address] Referral ID Status Reason Start Date Expiration Date V isits Requested Visits Authorized [id number] Closed Consult, Test & Treat 04/04/2019 04/03/2020 1 1 Encounter Details Date Type Department Care Team (Latest Contact Info) Description 10/12/2019 2:30 PM EDT Office [place] [id number] Harmeet Arvizu MD [facility] [place] [place] [address] Proliferative diabetic retinopathy of left eye with [...] about driving: We always recommend having a tractor sweeper driver on the day you get an [...] Normal and Not Expected side effects: Call [phone] (Eye Clinic) DAY or NIGHT, HOLIDAY or [...] visual impairment category Reestablishing care here at [facility]. Previous CBC patient last seen 2013. Since [...] loss due to brain/head injury. Hospitalization in [place]. Some note available in scan docs. Eylea [...] category documented in this encounter Care Teams Infrastructure Software Engineer Relationship Specialty Start Date End Date Jarad Keller DNP PCP - General Family Medicine 06/05/18 02/09/21 documented as of this encounter
--- OUTSIDE RECORDS SUMMARY | 2024-01-03 16:15 | XMS_ITS | Encounter Summary ---
[place] [address] Care Team Providers Care Water And Sewer Systems Supervisor Name Role Phone Jarad Keller DNP Primary Care Provider [phone] Encounter Details Date Type Department Care Team (Late st Contact Info) Description 02/06/2020 2:30 PM EDT Office [place] [address] Encounter for pre-transplant evaluation for kidney transplant [...] this encounter Progress Notes * Nikki Castillo, [facility] - 02/06/2020 2:30 PM EDT [...] mouth daily. ??? OneTouch Verio Flex meter [facility] TEST BLOOD GLUCOSE THREE TIMES A DAY ??? insulin needles, disposable, 31 gauge x 3/16 Needle Inject 1 each subcutaneously 4 times daily. ICD 10 Code: E11.65 ??? sub-q insulin device, 20 unit (V-GO 20) Device 1 each by [facility].(Non-Drug; Combo Route) route daily. Insulin pump to infuse insulin continuously. Change daily ??? blood sugar diagnostic strips Strip Use to check blood sugar 3 times daily No current [facility]-ordered facility-administered medications on file. Assessment/plan: [...] Item Adherence scale. 3. The need for intermediate medication and potential adjustment of medications post-transplant [...] questions NIKKI CASTILLO RPH Transplant pharmacist Pager [phone] documented in this encounter Plan of Treatment Not on file documented as of this encounter Visit Diagnoses Diagnosis Encounter for pre-transplant evaluation for kidney transplant documented in this encounter Care Teams Water And Sewer Systems Supervisor Relationship Specialty Start Date End Date Jarad Keller DNP PCP - General Family Medicine 06/05/18 02/09/21 documented as of this encounter
--- OUTSIDE RECORDS SUMMARY | 2024-01-03 16:15 | XMS_ITS | Encounter Summary ---
[place] [address] Care Team Providers Care Tankage Grinder Name Role Phone Jarad Keller DNP Primary Care Provider [phone] Reason for Visit * Reason Comments Procedure Encounter Details Date Type Department Care Team (Latest Contact Info) Description 10/12/2019 5:30 PM EDT Procedure [place] [address] [facility] [place] [address] Proliferative diabetic retinopathy of left eye with [...] about driving: We always recommend having a local combination truck driver on the day you get [...] Normal and Not Expected side effects: Call [phone] (Eye Clinic) DAY or NIGHT, HOLIDAY or [...] of Eylea 2.0 mg left eye Assist: It Teacher Anesthesia: Topical Proparacaine and topical 4% Lidocaine Complications: None Procedure: The patient was taken to the minor treatment suite where the patient was reidentified using name and birthdate as critical identifiers. The correct eye as the operative site was reidentified by a preplaced site maria r, and the consent form was actively reviewed by the janitorial assistant and the surgeon. The left eye was prepped including instillation of Betadine 5% into the left cul de sac for 5 minutes, facial prep with ophthalmic Betadine and placement of a lid speculum. The Surgeon performed hand washing preoperatively, used gloves, and wore a face mask or used no talking technique during the procedudre, as did the rn medical surgical. After topical anesthesia of the [...] call the Eye Clinic or Eye Doctor salon sales consultant, should they develop pain the treated eye, increasing redness or a discharge from the eye. 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
--- OUTSIDE RECORDS SUMMARY | 2024-01-03 16:15 | XMS_ITS | Encounter Summary ---
[place] [address] Care Team Providers Care Development Advisor Name Role Phone Jarad Keller DNP Primary Care Provider [phone] Encounter Details Date Type Department Care Team (Late st Contact Info) Description 02/06/2020 11:00 AM EDT Office Visit [place] [address] Cathie Farfan MD [facility] [place] [address] ESRD (end stage renal disease); Encounter for [...] was elevated. 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 Since his fall he has [...] INSERTION performed by Erasmo Bajwa MD at [facility] OSC ? ? PRO REPAIR COMPLEX RETINA DETACH VITRECTOMY & MEMB PEEL 04/03/2012, 04/03/12 REPAIR COMPLEX RETINAL DETACHMENT, W/ VITRECTOMY, MEMBRANE PEELING performed by Matteo Diane MD at [facility] MAIN OR ? ? PRO REPAIR COMPLEX RETINA DETACH VITRECTOMY & MEMB PEEL 07/31/2012 REPAIR COMPLEX RETINAL DETACHMENT, W/ VITRECTOMY, MEMBRANE PEELING performed by Matteo Diane MD at [facility] MAIN OR ? ? PRO REPAIR COMPLEX RETINA DETACH VITRECTOMY & MEMB PEEL 01/08/2013 REPAIR COMPLEX RETINAL DETACHMENT, W/ VITRECTOMY, MEMBRANE PEELING performed by Matteo Diane MD at [facility] MAIN OR ??? PRO TX [...] oral capsule ??? OneTouch Verio Flex meter [facility] TEST BLOOD GLUCOSE THREE TIMES [...] unit (V-GO 20) Device 1 each by [facility].(Non-Drug; Combo Route) route daily. Insulin [...] Patient: FERNANDA Gurrola DOB(Age): 1960(59y) Med Rec#: [id number] Sex: M Site Loc: [facility] Ht / Wt: 162(cm)/103(kg) Pt. Loc: Adult Floor BSA: 2.06 Study Date: 07/31/2019 Pt. Type: Inpatient Tape: Referring: Aaron Dover Referring: YANELI Reading: Dev Hernandez ([id number]) Mortgage Loan Processing Clerk: Efraín Heredia Diagnosis: *Unspecified fall, initial [...] Normal Mid-Posterolateral Normal Mid-Inferior Normal Mid-Inferoseptal Normal Hudson-Septal Normal Hudson-Anterior Normal Hudson-Lateral Normal Hudson-Inferior Normal Hudson-Tip Normal This report has been electronically signed by: Dev Hernandez MD 07/31/2019 15:10:05 Images reviewed and interpretation verified [facility] Cardiac Ultrasound Laboratory Assessment: Mr. Maurice [...] and for putting your dorothy in the [facility] Transplant Program. We will be discussing his case in our multidisciplinary kidney transplant evaluation committee where I will recommend we work towards getting him listed.. Please do not hesitate to contact me if you have any questions. The number rings directly to my office. Sincerely, Cathie Farfan M.D. Solid Organ Transplant Surgery [facility] documented in this encounter Plan of Treatment Not on file documented as of this encounter Visit Diagnoses Diagnosis ESRD (end stage renal disease) End stage renal disease Encounter for pre-transplant evaluation for kidney transplant documented in this encounter Care Teams Development Advisor Relationship Specialty Start Date End Date Jarad Keller DNP PCP - General Family Medicine 06/05/18 02/09/21 documented as of this encounter
--- OUTSIDE RECORDS SUMMARY | 2024-01-03 16:15 | XMS_ITS | Encounter Summary ---
[place] [address] Care Team Providers Care House Moving Supervisor Name Role Phone Jarad Keller DNP Primary Care Provider [phone] Encounter Details Date Type Department Care Team (Late st Contact Info) Description 02/06/2020 Orders Only [place] [address] Daily, Young Ramirez MD [facility] [place] [address] Coronary artery disease, angina presence unspecified, unspecified vessel or lesion type, unspecified whether eastern [place] or transplanted heart; Benign prostatic hyperplasia, unspecified [...] (ABNORMAL) C-peptide (02/06/2020 2:48 PM EDT) Pathologist [facility] C-Peptide 10.8(H) 0.8 - 5.2 ng/mL [facility] Blood specimen (specimen) 02/06/2020 2:48 PM EDT 02/06/2020 2:57 PM EDT Narrative Resulting Agency Comment Spec In Lab Young Coronado MD CHEMISTRY ORDERABLES Performing Organization Address [facility] Co de Phone Number [facility] [place] [address] * PSA (Ultrasensitive) (02/06/2020 2:48 PM EDT) [facility] Prostate Specific Antigen (Ultrasensitive ) 0.57 0.00 - 4.00 ng/mL [facility] Comment: PLEASE NOTE: The above reference interval is intended for healthy males with an intact prostate. Values within this reference interval may indicate recurrence in men who have undergone radical prostatectomy. Blood specimen (specimen) 02/06/2020 2:48 PM EDT 02/06/2020 2:57 PM EDT Narrative Resulting Agency Comment Spec In Lab Young Coronado MD CHEMISTRY ORDERABLES Performing Organization Address [facility] Co de Phone Number [facility] [place] [address] * (ABNORMAL) Hemoglobin A1c (02/06/2020 2:48 PM EDT) Pathologist [facility] Hemoglobin A1c 10.0(H) 4.3 - 5.6 % [facility] Comment: Reference Range: 4.3 - [...] 1, S67-74 Estimated Average Glucose 239 mg/dL [facility] Comment: eAG equivalents for HbA1c [...] into estimated average glucose values. ??Diabetes Care 2008:31(8):9417-0134. Blood specimen (specimen) 02/06/2020 2:48 PM EDT 02/06/2020 2:57 PM EDT Narrative Resulting Agency Comment Spec In Lab Young Coronado MD CHEMISTRY ORDERABLES [facility] [place] [address] * (ABNORMAL) Fructosamine (02/06/2020 2:48 PM EDT) Fructosamine (AUGUST) 556(H) 200 - 285 mcmol/L [facility] Comment: Test Performed by: [facility] - [address] [address] Customer Service Technician: Marquise Dobbs M.D. Ph.D.; CLIA# [id number] Blood specimen (specimen) 02/06/2020 2:48 PM EDT 02/06/2020 3:59 PM EDT Narrative Resulting Agency Comment Spec In Lab Young Coronado MD LAB SEND OUT ORDERAB LES Performing Organization Address [facility] Co de Phone Number [facility] [place] [address] * Varicella zoster Antibody, IgG (02/06/2020 2:48 PM EDT) Varicella Zoster Antibody IgG Pos [facility] Blood specimen (specimen) 02/06/2020 2:48 PM EDT 02/07/2020 7:33 AM EDT Narrative Resulting Agency Comment Spec In Lab Young Coronado MD IMMUNOLOGY ORDERABLE S Performing Organization Address [facility] de Phone Number [facility] [place] [address] * (ABNORMAL) Toxoplasma Antibody, IgG (02/06/2020 2:48 PM EDT) Toxoplasma Antibody IgG Positive( A) Negative [facility] Blood specimen (specimen) 02/06/2020 2:48 PM EDT 02/07/2020 7:33 AM EDT Narrative Resulting Agency Comment Spec In Lab Young Coronado MD IMMUNOLOGY ORDERABLE S Performing Organization Address [facility] de Phone Number [facility] [place] [address] * Syphilis Screening Antibody with reflex RPR (02/06/2020 2:48 PM EDT) Syphilis IgG/IgM Negative Negative [facility] Blood specimen (specimen) 02/06/2020 2:48 PM EDT 02/06/2020 2:57 PM EDT Narrative Resulting Agency Comment Spec In Lab Young Coronado MD CHEMISTRY ORDERABLES Performing Organization Address [facility]/ZIP Co de Phone Number [facility] [place] [address] * HIV Screen, 4th Generation ([facility]/CGP/APD/NLH) (02/06/2020 2:48 PM EDT) HIV Ab/Ag Screen Negative Negative [facility] Comment: This 4th Generation HIV [...] Coronado MD CHEMISTRY ORDERABLES Performing Organization Address [facility] Co de Phone Number [facility] [place] [address] * (ABNORMAL) HSV 1 and 2 IgG Antibodies (02/06/2020 2:48 PM EDT) HSV Type 1 Ab, IgG Pos(A) Neg [facility] HSV Type 2 Ab, IgG Pos(A) Neg [facility] Blood specimen (specimen) 02/06/2020 2:48 PM EDT 02/07/2020 7:33 AM EDT Narrative Resulting Agency Comment Spec In Lab Young Coronado MD IMMUNOLOGY ORDERABLE S Performing Organization Address City/[facility]/ZIP Co de Phone Number [facility] [place] [address] * (ABNORMAL) Carlie-St Virus Antibodies (02/06/2020 2:48 PM EDT) EBV (VCA) IgG Ab Pos(A) Neg [facility] EBV (VCA) IgM Ab Neg Neg [facility] EBNA Antibodies Pos(A) Neg [facility] EBV Interpretation Results suggest past infection. [facility] Comment: In most populations, at [...] Organization Address [facility]/ZIP Co de Phone Number [facility] [place] [address] * CMV Antibody, IgG (02/06/2020 2:48 PM EDT) CMV IgG Negative Negative [facility] Blood specimen (specimen) 02/06/2020 2:48 PM EDT 02/07/2020 7:33 AM EDT Narrative Resulting Agency Comment Spec In Lab Young Coronado MD IMMUNOLOGY ORDERABLE S Performing Organization Address [facility] Co de Phone Number [facility] [place] [address] * Hepatitis C Antibody (02/06/2020 2:48 PM EDT) Hepatitis C Antibody Negative Negative [facility] Blood specimen (specimen) 02/06/2020 2:48 PM EDT 02/06/2020 2:57 PM EDT Narrative Resulting Agency Comment Spec In Lab Young Coronado MD CHEMISTRY ORDERABLES Performing Organization Address [facility] Co de Phone Number [facility] [place] [address] * Hepatitis B Surface Antigen (02/06/2020 2:48 PM EDT) Hepatitis B Surface Antigen Negative Negative [facility] Blood specimen (specimen) 02/06/2020 2:48 PM EDT 02/06/2020 2:57 PM EDT Narrative Resulting Agency Comment Spec In Lab Young Ramirez Daily CHEMISTRY ORDERABLES Performing Organization Address [facility]/ZIP Co de Phone Number [facility] [place] [address] * Hepatitis B Surface Antibody (02/06/2020 2:48 PM EDT) Pathologist [facility] Hepatitis B Surface Antibody, Quantitative 52.5 IU/L [facility] Comment: HepB Surface Ab Quant: [...] Coronado MD CHEMISTRY ORDERABLES Performing Organization Address [facility] Co de Phone Number [facility] [place] [address] * Hepatitis B Core Antibody, IgM (02/06/2020 2:48 PM EDT) Hepatitis B Core IgM Negative Negative [facility] Blood specimen (specimen) 02/06/2020 2:48 PM EDT 02/06/2020 2:57 PM EDT Narrative Resulting Agency Comment Spec In Lab Young Ramirez Daily CHEMISTRY ORDERABLES [facility] [place] [address] * Prothrombin Time (02/06/2020 2:48 PM EDT) Pathologist [facility] Prothrombin Time 11.1 9.4 - 12.5 sec [facility] International Normalization Ratio 1.0 [facility] Comment: An INR <2.0 indicates [...] MD HEMATOLOGY ORDERABLE S Performing Organization Address [facility] Co de Phone Number [facility] [place] [address] * APTT (02/06/2020 2:48 PM EDT) Partial Thromboplastin Time 35 25 - 37 sec [facility] Comment: The PTT is NOT appropriate for heparin monitoring. Use the Anti-Xa level for heparin monitoring (HEP UFH) or LMWH monitoring (HEP LMW). A PTT less than 37 seconds generally indicates adequate hemostasis. Blood specimen (specimen) 02/06/2020 2:48 PM EDT 02/06/2020 2:57 PM EDT Narrative Resulting Agency Comment Spec In Lab Young Coronado MD HEMATOLOGY ORDERABLE S Performing Organization Address [facility] Co de Phone Number [facility] [place] [address] documented in this encounter Visit Diagnoses Diagnosis Coronary artery disease, angina presence unspecified, unspecified vessel or lesion type, unspecified whether [place] or transplanted heart Benign prostatic hyperplasia, unspecified whether lower urinary tract symptoms present Diabetes mellitus due to underlying condition with diabetic nephropathy, 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
--- OUTSIDE RECORDS SUMMARY | 2024-01-03 16:15 | XMS_ITS | Encounter Summary ---
[place] [address] Care Team Providers Care Curing Press Operator Name Role Phone Jarad Keller DNP Primary Care Provider [phone] Encounter Details Date Type Department Care Team (Late st Contact Info) Description 05/16/2020 Telephone [place] [address] [facility] [address] [place] [address] Social History Tobacco Use Types Packs/Day Years [...] the phone regarding weight loss progress. During curriculum writer's initial encounter with pt in January 2020 nutrition-related goals for transplant discussed, including weightloss given obese class II and tighter blood glucose control. Prior to speaking with Maurice this curriculum writer obtained most recent EDW from dialysis [...] not differed much from diet reported to curriculum writer in January. Pt states that he [...] - pt states he is working with honey processor to get another insulin pump to aid [...] with pt and dialysis RD. Informed Maurice curriculum writer to check in with him in ~3 mo; with a weight loss goal achieved at this time of 5% / 10#. Maurice agreeable to plan. Informed Maurice curriculum writer available at anytime in the meantime to further assist him with nutrition-related goals for transplant. Thank you, Cheryl Presley RD documented in this encounter Plan of Treatment Not on file documented as of this encounter Visit Diagnoses Not on filedocumented in this encounter Care Teams Curing Press Operator Relationship Specialty Start Date End Date Jarad Keller DNP PCP - General Family Medicine 06/05/18 02/09/21 documented as of this encounter
--- OUTSIDE RECORDS SUMMARY | 2024-01-03 16:15 | XMS_ITS | Encounter Summary ---
[place] [address] Care Team Providers Care Insurance Investigator Name Role Phone Jarad Keller DNP Primary Care Provider [phone] Encounter Details Date Type Department Care Team (Latest Contact Info) Description 01/04/2020 1:45 PM EDT Office [place] [address] Harmeet Arvizu MD [facility] [place] [address] Proliferative diabetic retinopathy of left eye with [...] category documented in this encounter Care Teams Insurance Investigator Relationship Specialty Start Date End Date Jarad Keller DNP PCP - General Family Medicine 06/05/18 02/09/21 documented as of this encounter
--- OUTSIDE RECORDS SUMMARY | 2024-01-03 16:15 | XMS_ITS | Encounter Summary ---
[place] [address] Care Team Providers Care Vice President Industrial Relations Name Role Phone Jarad Keller DANIKA Primary Care Provider [phone] Encounter Details Date Type Department Care Team (Latest Contact Info) Description 02/06/2020 3:30 PM EDT Laboratory Appointment Lab [address] [place] [address] Coronary artery disease, angina presence unspecified, unspecified vessel or lesion type, unspecified whether [place] or transplanted heart; Benign prostatic hyperplasia, unspecified [...] unspecified vessel or lesion type, unspecified whether [place] or transplanted heart Benign prostatic hyperplasia, unspecified [...] unspecified vessel or lesion type, unspecified whether [place] or transplanted heart Benign prostatic hyperplasia, unspecified [...] unspecified vessel or lesion type, unspecified whether [place] or transplanted heart Benign prostatic hyperplasia, unspecified [...] unspecified vessel or lesion type, unspecified whether [place] or transplanted heart Benign prostatic hyperplasia, unspecified [...] unspecified vessel or lesion type, unspecified whether [place] or transplanted heart Benign prostatic hyperplasia, unspecified [...] unspecified vessel or lesion type, unspecified whether [place] or transplanted heart Benign prostatic hyperplasia, unspecified whether lower urinary tract symptoms present Diabetes mellitus due to underlying condition with diabetic nephropathy, 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 End stage renal disease Pre-transplant evaluation for kidney transplant ABO/RH TYPING Routine 02/06/2020 2:48 PM EDT Coronary artery disease, angina presence unspecified, unspecified vessel or lesion type, unspecified whether [place] or transplanted heart Benign prostatic hyperplasia, unspecified whether lower urinary tract symptoms present Diabetes mellitus due to underlying condition with diabetic nephropathy, 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 End stage renal disease Pre-transplant evaluation for kidney transplant HC VENIPUNCTURE Routine 02/06/2020 2:48 PM EDT Coronary artery disease, angina presence unspecified, unspecified vessel or lesion type, unspecified whether [place] or transplanted heart Benign prostatic hyperplasia, unspecified [...] unspecified vessel or lesion type, unspecified whether [place] or transplanted heart Benign prostatic hyperplasia, unspecified [...] unspecified vessel or lesion type, unspecified whether [place] or transplanted heart Benign prostatic hyperplasia, unspecified [...] unspecified vessel or lesion type, unspecified whether [place] or transplanted heart Benign prostatic hyperplasia, unspecified [...] unspecified vessel or lesion type, unspecified whether [place] or transplanted heart Benign prostatic hyperplasia, unspecified [...] unspecified vessel or lesion type, unspecified whether [place] or transplanted heart Benign prostatic hyperplasia, unspecified [...] unspecified vessel or lesion type, unspecified whether [place] or transplanted heart Benign prostatic hyperplasia, unspecified [...] unspecified vessel or lesion type, unspecified whether [place] or transplanted heart Benign prostatic hyperplasia, unspecified whether lower urinary tract symptoms present Diabetes mellitus due to underlying condition with diabetic nephropathy, 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 End stage renal disease Pre-transplant evaluation for kidney transplant ANTIBODY SCREEN Routine 02/06/2020 2:48 PM EDT Coronary artery disease, angina presence unspecified, unspecified vessel or lesion type, unspecified whether [place] or transplanted heart Benign prostatic hyperplasia, unspecified [...] unspecified vessel or lesion type, unspecified whether [place] or transplanted heart Benign prostatic hyperplasia, unspecified [...] unspecified vessel or lesion type, unspecified whether [place] or transplanted heart Benign prostatic hyperplasia, unspecified [...] unspecified vessel or lesion type, unspecified whether [place] or transplanted heart Benign prostatic hyperplasia, unspecified [...] unspecified vessel or lesion type, unspecified whether [place] or transplanted heart Benign prostatic hyperplasia, unspecified whether lower urinary tract symptoms present Diabetes mellitus due to underlying condition with diabetic nephropathy, 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 End stage renal disease Pre-transplant evaluation for kidney transplant documented in this encounter Results * ABORH Recheck Status (02/06/2020 2:48 PM EDT) ABORH Type Recheck Completed [facility] Blood specimen (specimen) 02/06/2020 2:48 PM EDT 02/06/2020 2:57 PM EDT Narrative Resulting Agency Comment Spec In Lab Young Coronado MD BLOOD BANK LAB ORDER ROBBIE [facility] [place] [address] * Antibody screen (02/06/2020 2:48 PM EDT) Pathologist [facility] Ab Screen Interp Negative [facility] Expires at [id number] on: 02/09/2020 [facility] Blood specimen (specimen) 02/06/2020 2:48 PM EDT 02/06/2020 2:57 PM EDT Narrative Resulting Agency Comment Spec In Lab Young Coronado MD BLOOD BANK LAB ORDER ROBBIE Performing Organization Address City/[facility]/ZIP Co de Phone Number [facility] [place] [address] * ABO/Rh Typing (02/06/2020 2:48 PM EDT) ABORH Type A Pos [facility] Blood specimen (specimen) 02/06/2020 2:48 PM EDT 02/06/2020 2:57 PM EDT Narrative Resulting Agency Comment Spec In Lab Young Coronado MD BLOOD BANK LAB ORDER ROBBIE [facility] [place] [address] * APTT (02/06/2020 2:48 PM EDT) [facility] Partial Thromboplastin Time 35 25 - 37 sec [facility] Comment: The PTT is NOT appropriate for heparin monitoring. Use the Anti-Xa level for heparin monitoring (HEP UFH) or LMWH monitoring (HEP LMW). A PTT less than 37 seconds generally indicates adequate hemostasis. Blood specimen (specimen) 02/06/2020 2:48 PM EDT 02/06/2020 2:57 PM EDT Narrative Resulting Agency Comment Spec In Lab Young Coronado MD HEMATOLOGY ORDERABLE S Performing Organization Address [facility] de Phone Number [facility] [place] [address] * Prothrombin Time (02/06/2020 2:48 PM EDT) Prothrombin Time 11.1 9.4 - 12.5 sec [facility] International Normalization Ratio 1.0 [facility] Comment: An INR <2.0 [...] MD HEMATOLOGY ORDERABLE S Performing Organization Address [facility] Co de Phone Number [facility] [place] [address] * Hepatitis B Core Antibody, IgM (02/06/2020 2:48 PM EDT) Hepatitis B Core IgM Negative Negative [facility] Blood specimen (specimen) 02/06/2020 2:48 PM EDT 02/06/2020 2:57 PM EDT Narrative Resulting Agency Comment Spec In Lab Young Coronado MD CHEMISTRY ORDERABLES Performing Organization Address [facility] Co de Phone Number [facility] [place] [address] * Hepatitis B Surface Antibody (02/06/2020 2:48 PM EDT) Hepatitis B Surface Antibody, Quantitative 52.5 IU/L [facility] Comment: HepB Surface Ab [...] Coronado MD CHEMISTRY ORDERABLES Performing Organization Address City/[facility]/ZIP Co de Phone Number [facility] [place] [address] * Hepatitis B Surface Antigen (02/06/2020 2:48 PM EDT) Hepatitis B Surface Antigen Negative Negative [facility] Blood specimen (specimen) 02/06/2020 2:48 PM EDT 02/06/2020 2:57 PM EDT Narrative Resulting Agency Comment Spec In Lab Young Coronado MD CHEMISTRY ORDERABLES Performing Organization Address City/[facility]/ZIP Co de Phone Number [facility] [place] [address] * Hepatitis C Antibody (02/06/2020 2:48 PM EDT) Hepatitis C Antibody Negative Negative [facility] Blood specimen (specimen) 02/06/2020 2:48 PM EDT 02/06/2020 2:57 PM EDT Narrative Resulting Agency Comment Spec In Lab Young Coronado MD CHEMISTRY ORDERABLES Performing Organization Address City/[facility]/ZIP Co de Phone Number [facility] [place] [address] * CMV Antibody, IgG (02/06/2020 2:48 PM EDT) CMV IgG Negative Negative [facility] Blood specimen (specimen) 02/06/2020 2:48 PM EDT 02/07/2020 7:33 AM EDT Narrative Resulting Agency Comment Spec In Lab Young Coronado MD IMMUNOLOGY ORDERABLE S Performing Organization Address City/[facility]/ZIP Co de Phone Number [facility] [place] [address] * (ABNORMAL) Carlie-St Virus Antibodies (02/06/2020 2:48 PM EDT) EBV (VCA) IgG Ab Pos(A) Neg [facility] EBV (VCA) IgM Ab Neg Neg [facility] EBNA Antibodies Pos(A) Neg [facility] EBV Interpretation Results suggest past infection. [facility] Comment: In most populations, [...] MD IMMUNOLOGY ORDERABLE S Performing Organization Address City/[facility]/ZIP Co de Phone Number [facility] [place] [address] * (ABNORMAL) HSV 1 and 2 IgG Antibodies (02/06/2020 2:48 PM EDT) HSV Type 1 Ab, IgG Pos(A) Neg [facility] HSV Type 2 Ab, IgG Pos(A) Neg [facility] Blood specimen (specimen) 02/06/2020 2:48 PM EDT 02/07/2020 7:33 AM EDT Narrative Resulting Agency Comment Spec In Lab Young Coronado MD IMMUNOLOGY ORDERABLE S Performing Organization Address [facility] Co de Phone Number [facility] [place] [address] * HIV Screen, 4th Generation (MC/CGP/APD/NLH) (02/06/2020 2:48 PM EDT) HIV Ab/Ag Screen Negative Negative [facility] Comment: This 4th Generation [...] Coronado MD CHEMISTRY ORDERABLES Performing Organization Address [facility]/ZIP Co de Phone Number [facility] [place] [address] * Syphilis Screening Antibody with reflex RPR (02/06/2020 2:48 PM EDT) Pathologist [facility] Syphilis IgG/IgM Negative Negative [facility] Blood specimen (specimen) 02/06/2020 2:48 PM EDT 02/06/2020 2:57 PM EDT Narrative Resulting Agency Comment Spec In Lab Young Coronado MD CHEMISTRY ORDERABLES Performing Organization Address [facility] Co de Phone Number [facility] [place] [address] * (ABNORMAL) Toxoplasma Antibody, IgG (02/06/2020 2:48 PM EDT) Toxoplasma Antibody IgG Positive( A) Negative [facility] Blood specimen (specimen) 02/06/2020 2:48 PM EDT 02/07/2020 7:33 AM EDT Narrative Resulting Agency Comment Spec In Lab Young Coronado MD IMMUNOLOGY ORDERABLE S Performing Organization Address [facility]/ZIP Co de Phone Number [facility] [place] [address] * Varicella zoster Antibody, IgG (02/06/2020 2:48 PM EDT) Varicella Zoster Antibody IgG Pos [facility] Blood specimen (specimen) 02/06/2020 2:48 PM EDT 02/07/2020 7:33 AM EDT Narrative Resulting Agency Comment Spec In Lab Young Coronado MD IMMUNOLOGY ORDERABLE S Performing Organization Address [facility] de Phone Number [facility] [place] [address] * (ABNORMAL) Fructosamine (02/06/2020 2:48 PM EDT) Pathologist [facility] Fructosamine (AUGUST) 556(H) 200 - 285 mcmol/L [facility] Comment: Test Performed by: [facility] [place] [address] [employer] Biomanufacturing Technician: Marquise Dobbs M.D. Ph.D.; CLIA# [id number] Blood specimen (specimen) 02/06/2020 2:48 PM EDT 02/06/2020 3:59 PM EDT Narrative Resulting Agency Comment Spec In Lab Young Coronado MD LAB SEND OUT ORDERAB LES Performing Organization Address [facility] Co de Phone Number [facility] [place] [address] * (ABNORMAL) Hemoglobin A1c (02/06/2020 2:48 PM EDT) Hemoglobin A1c 10.0(H) 4.3 - 5.6 % [facility] Comment: Reference Range: 4.3 [...] 1, S67-74 Estimated Average Glucose 239 mg/dL [facility] Comment: eAG equivalents for [...] into estimated average glucose values. ??Diabetes Care 2008:31(8):3146-2599. Blood specimen (specimen) 02/06/2020 2:48 PM EDT 02/06/2020 2:57 PM EDT Narrative Resulting Agency Comment Spec In Lab Young Coronado MD CHEMISTRY ORDERABLES [facility] [place] [address] * PSA (Ultrasensitive) (02/06/2020 2:48 PM EDT) Prostate Specific Antigen (Ultrasensitive ) 0.57 0.00 - 4.00 ng/mL [facility] Comment: PLEASE NOTE: The above reference interval is intended for healthy males with an intact prostate. Values within this reference interval may indicate recurrence in men who have undergone radical prostatectomy. Blood specimen (specimen) 02/06/2020 2:48 PM EDT 02/06/2020 2:57 PM EDT Narrative Resulting Agency Comment Spec In Lab Young Ramirez Daily CHEMISTRY ORDERABLES Performing Organization Address City/[facility] Co de Phone Number [facility] [place] [address] * (ABNORMAL) C-peptide (02/06/2020 2:48 PM EDT) C-Peptide 10.8(H) 0.8 - 5.2 ng/mL [facility] Blood specimen (specimen) 02/06/2020 2:48 PM EDT 02/06/2020 2:57 PM EDT Narrative Resulting Agency Comment Spec In Lab Young Ramirez Daily CHEMISTRY ORDERABLES Performing Organization Address City/[facility] Co de Phone Number [facility] [place] [address] documented in this encounter Visit Diagnoses Diagnosis Coronary artery disease, angina presence unspecified, unspecified vessel or lesion type, unspecified whether [place] or transplanted heart Benign prostatic hyperplasia, unspecified whether lower urinary tract symptoms present Diabetes mellitus due to underlying condition with diabetic nephropathy, 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
--- OUTSIDE RECORDS SUMMARY | 2024-01-03 16:15 | XMS_ITS | Encounter Summary ---
[place] [address] Care Team Providers Care Skiing Instructor Name Role Phone Jarad Keller DNP Primary Care Provider [phone] Reason for Visit * Reason Onset Date Comments Prior Authorization 10/02/2019 Encounter Details Date Type Department Care Team (Late st Contact Info) Description 10/02/2019 [place] [id number] [place] Duque Prior Authorization Social History Tobacco [...] on filedocumented in this encounter Care Teams Skiing Instructor Relationship Specialty Start Date End Date Jarad Keller DNP PCP - General Family Medicine 06/05/18 02/09/21 documented as of this encounter
--- OUTSIDE RECORDS SUMMARY | 2024-01-03 16:15 | XMS_ITS | Encounter Summary ---
Author [place] [address] Care Team Providers Care Hockey Scout Name Role Phone Jarad Keller DNP Primary Care Provider [phone] Reason for Visit * Reason Onset Date Comments Follow-up 10/15/2019 Encounter Details Date Type Department Care Team (Late st Contact Info) Description 10/15/2019 [place] [address] Harmeet Arvizu MD [facility] [place] [address] Follow-up Social History Tobacco Use Types Packs/Day [...] on filedocumented in this encounter Care Teams Hockey Scout Relationship Specialty Start Date End Date Jarad Keller DNP PCP - General Family Medicine 06/05/18 02/09/21 documented as of this encounter
--- OUTSIDE RECORDS SUMMARY | 2024-01-03 16:15 | XMS_ITS | Encounter Summary ---
Author Organization [facility] [place] [address] Care Team Providers Care Car Manager Name Role Phone Jarad Keller DNP Primary Care Provider [phone] Reason for Visit * Reason Comments Procedure Encounter Details Date Type Department Care Team (Latest Contact Info) Description 12/07/2019 10:00 AM EDT Procedure [place] [address] Harmeet Arvizu MD [facility] [place] [address] Proliferative diabetic retinopathy of left eye with [...] about driving: We always recommend having a ross carrier driver on the day you get an [...] Normal and Not Expected side effects: Call [phone] (Eye Clinic) DAY or NIGHT, HOLIDAY or [...] of Eylea 2.0 mg left eye Assist: Glass Cleaning Machine Tender Anesthesia: Topical Proparacaine and topical 4% Lidocaine Complications: None Procedure: The patient was taken to the minor treatment suite where the patient was reidentified using name and birthdate as critical identifiers. The correct eye as the operative site was reidentified by a preplaced site maria r, and the consent form was actively reviewed by the family services assistant and the surgeon. The left eye was prepped including instillation of Betadine 5% into the left cul de sac for 5 minutes, facial prep with ophthalmic Betadine and placement of a lid speculum. The Surgeon performed hand washing preoperatively, used gloves, and wore a face mask or used no talking technique during the procedudre, as did the surgical scrub technician. After topical anesthesia of the injection [...] call the Eye Clinic or Eye Doctor office 365 consultant, should they develop pain the treated [...] Eye documented in this encounter Care Teams Car Manager Relationship Specialty Start Date End Date Jarad Keller DNP PCP - General Family Medicine 06/05/18 02/09/21 documented as of this encounter
--- OUTSIDE RECORDS SUMMARY | 2024-01-03 16:15 | XMS_ITS | Encounter Summary ---
[place] [address] Care Team Providers Care Tracer Bullet Section Supervisor Name Role Phone Jarad Keller DNP Primary Care Provider [phone] Encounter Details Date Type Department Care Team (Late st Contact Info) Description 05/20/2020 Orders Only [place] [address] Nettie Davis, SHORT ORDER COOK [facility] [address] Social History Tobacco Use Types Packs/Day Years [...] on filedocumented in this encounter Care Teams Tracer Bullet Section Supervisor Relationship Specialty Start Date End Date Jarad Keller DNP PCP - General Family Medicine 06/05/18 02/09/21 documented as of this encounter
--- OUTSIDE RECORDS SUMMARY | 2024-01-03 16:15 | XMS_ITS | Encounter Summary ---
Author Organization [facility] [place] [address] Care Team Providers Care Machine Maintenance Technician Name Role Phone Jarad Keller DNP Primary Care Provider [phone] Reason for Visit * Reason Onset Date Comments Medication Refill 10/01/2019 Encounter Details Date Type Department Care Team (Late st Contact Info) Description 10/01/2019 Refill [place] [address] Ceasar Roy MD [facility] [place] [address] Social History Tobacco Use Types Packs/Day Years [...] filedocumented in this encounter Care Teams Machine Maintenance Technician Relationship Specialty Start Date End Date Jarad Keller DNP PCP - General Family Medicine 06/05/18 02/09/21 documented as of this encounter
--- OUTSIDE RECORDS SUMMARY | 2024-01-03 16:15 | XMS_ITS | Encounter Summary ---
Author Organization [facility] [place] [address] Care Team Providers Care Data Warehouse Architect Name Role Phone Jarad Keller DNP Primary Care Provider [phone] Reason for Visit * Reason Comments Procedure Encounter Details Date Type Department Care Team (Latest Contact Info) Description 11/09/2019 2:15 PM EDT Procedure [place] [address] Harmeet Arvizu MD [facility] [place] [address] Proliferative diabetic retinopathy of left eye with [...] driving: We always recommend having a driver engineer on the day you get an injection. [...] Normal and Not Expected side effects: Call [phone] (Eye Clinic) DAY or NIGHT, HOLIDAY or [...] of Eylea 2.0 mg left eye Assist: Child Day Care Provider Anesthesia: Topical Proparacaine and topical 4% Lidocaine Complications: None Procedure: The patient was taken to the minor treatment suite where the patient was reidentified using name and birthdate as critical identifiers. The correct eye as the operative site was reidentified by a preplaced site maria r, and the consent form was actively reviewed by the commercial lines account assistant and the surgeon. The left eye was prepped including instillation of Betadine 5% into the left cul de sac for 5 minutes, facial prep with ophthalmic Betadine and placement of a lid speculum. The Surgeon performed hand washing preoperatively, used gloves, and wore a face mask or used no talking technique during the procedudre, as did the surgical instrument technician. After topical anesthesia of the injection [...] call the Eye Clinic or Eye Doctor peoplesoft hcm consultant, should they develop pain the treated [...] Eye documented in this encounter Care Teams Data Warehouse Architect Relationship Specialty Start Date End Date Jarad Keller DNP PCP - General Family Medicine 06/05/18 02/09/21 documented as of this encounter
--- OUTSIDE RECORDS SUMMARY | 2024-01-03 16:15 | XMS_ITS | Encounter Summary ---
Author Organization [place] [address] Care Team Providers Care Cement Boat And Barge Loader Name Role Phone Jarad Keller DNP Primary Care Provider [phone] Encounter Details Date Type Department Care Team (Late st Contact Info) Description 06/17/2020 2:36 [place] [address] Merlin Joyce MD [facility] [place] [address] Danuta Dye, CHEMICAL ECONOMIST [address] [facility] 3B-1 [place] [address] Anesthesia Record Procedure Summary Procedure Name Responsible [...] 1418; metacarpal vein (top of hand), right; [id number] catheter system; 20 gauge; bob neville; distraction; [...] Procedure Summary Date: 06/17/20 Room / Location: [facility] INTERVENTIONAL RADIOLOGY 2 / [facility] Anesthesia Start: 1436 Anesthesia Stop: 1616 Procedure: FISTULAGRAM (Left ) Diagnosis: (ESRD (end stage renal disease)) Surgeons: Ceasar Gonzalez MD Responsible Provider: Merlin Joyce MD Anesthesia Type: general ASA Status: 3 All Anesthesia Providers: Anesthesiologist: Merlin Joyce MD Hand Cloth Examiner: Bob Nevilel MD Vitals Value Taken Time BP Temp Pulse Resp SpO2 Pain Level Patient Location: PACU/[facility] Level of Consciousness: Awake and Alert [...] INSERTION performed by Erasmo Bajwa MD at [facility] OSC ? ? PRO REPAIR COMPLEX RETINA DETACH VITRECTOMY & MEMB PEEL 04/03/2012, 04/03/12 REPAIR COMPLEX RETINAL DETACHMENT, W/ VITRECTOMY, MEMBRANE PEELING performed by Matteo Diane MD at [facility] MAIN OR ? ? PRO REPAIR COMPLEX RETINA DETACH VITRECTOMY & MEMB PEEL 07/31/2012 REPAIR COMPLEX RETINAL DETACHMENT, W/ VITRECTOMY, MEMBRANE PEELING performed by Matteo Diane MD at [facility] MAIN OR ? ? PRO REPAIR COMPLEX RETINA DETACH VITRECTOMY & MEMB PEEL 01/08/2013 REPAIR COMPLEX RETINAL DETACHMENT, W/ VITRECTOMY, MEMBRANE PEELING performed by Matteo Diane MD at [facility] MAIN OR ??? PRO TX EXTENSIVE [...] mL/hr documented in this encounter Care Teams Cement Boat And Barge Loader Relationship Specialty Start Date End Date Jarad Keller DNP PCP - General Family Medicine 06/05/18 02/09/21 documented as of this encounter
--- OUTSIDE RECORDS SUMMARY | 2024-01-03 16:15 | XMS_ITS | Encounter Summary ---
Author Organization [facility] [place] [address] Care Team Providers Care Project Manager/Design Manager Name Role Phone Jarad Keller DNP Primary Care Provider [phone] Reason for Visit * Reason Comments Procedure Eylea 3/3 OS PDR Encounter Details Date Type Department Care Team (Latest Contact Info) Description 03/21/2020 2:45 PM EST Procedure [place] [address] Harmeet Arvizu MD [facility] [place] [address] Proliferative diabetic retinopathy of left eye with [...] driving: We always recommend having a cdl company flatbed driver on the day you get an [...] Normal and Not Expected side effects: Call [phone] (Eye Clinic) DAY or NIGHT, HOLIDAY or WEEKEND if you experience any of the following: = Severe, increasing pain in the eye = Significant, dramatic vision loss = Redness on and around the eye that gets worse, not better = Severe light sensitivity Call 121 or go to the Emergency room immediately [...] of Eylea 2.0 mg left eye Assist: Roving Weight Gauger Anesthesia: Topical Proparacaine and topical 4% Lidocaine Complications: None Procedure: The patient was taken to the minor treatment suite where the patient was reidentified using name and birthdate as critical identifiers. The correct eye as the operative site was reidentified by a preplaced site maria r, and the consent form was actively reviewed by the senior care assistant and the surgeon. The left eye was prepped including instillation of Betadine 5% into the left cul de sac for 5 minutes, facial prep with ophthalmic Betadine and placement of a lid speculum. The Surgeon performed hand washing preoperatively, used gloves, and wore a face mask or used no talking technique during the procedudre, as did the surgical nurse. After topical anesthesia of the injection site [...] call the Eye Clinic or Eye Doctor extension service agent, should they develop pain the treated eye, increasing redness or a discharge from the eye. 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
--- OUTSIDE RECORDS SUMMARY | 2024-01-03 16:15 | XMS_ITS | Encounter Summary ---
Author Organization [facility] [place] [address] Care Team Providers Care Rag Cutting Machine Operator Name Role Phone Jarad Keller DNP Primary Care Provider [phone] Encounter Details Date Type Department Care Team (Latest Contact Info) Description 06/17/2020 1:28 PM EST - 06/17/2020 4:52 PM [facility] Hospital Encounter [place] [id number] Ceasar Gonzalez MD [facility] [place] [address] ESRD on dialysis; Type 2 diabetes mellitus [...] (ABNORMAL) POCT Glucose (06/17/2020 4:34 PM EST) [facility] Glucose, POC 238(H) 65 - 199 mg/dL [facility] Comment: Supplemental ranges: <140 mg/dL before meals <180 mg/dL all other times of the day Blood specimen (specimen) 06/17/2020 4:34 PM EST 06/17/2020 4:34 PM EST Ceasar Gonzalez MD POINT OF CARE TEST O RDERAROSIE Performing Organization Address City/[facility]/ZIP Co de Phone Number [facility] [place] [address] * (ABNORMAL) POCT Glucose (06/17/2020 2:04 PM EST) Pathologist [facility] Glucose, POC 243(H) 65 - 199 mg/dL [facility] Comment: Supplemental ranges: <140 mg/dL before meals <180 mg/dL all other times of the day Blood specimen (specimen) 06/17/2020 2:04 PM EST 06/17/2020 2:04 PM EST Ceasar Gonzalez MD POINT OF CARE TEST O ANTONETTE Performing Organization Address [facility] Co de Phone Number [facility] [place] [address] * (ABNORMAL) Hemogram (06/17/2020 1:48 PM EST) [facility] White Blood Cell 7.0 4.0 - 9.5 x10(3)/mc L [facility] Red Blood Cell 4.09(L) 4.58 - 5.54 x10(6)/mc L [facility] Hemoglobin 12.9(L) 13.7 - 16.5 gm/dL [facility] Hematocrit 37.3(L) 40.5 - 48.5 % [facility] Mean Cell Volume 91.2 82.9 - 93.1 fL [facility] Mean Cell Hemoglobin 31.5 27.5 - 32.1 pg [facility] Mean Cell Hemoglobin Concentration 34.6 32.0 - 35.7 gm/dL [facility] Platelet 142(L) 145 - 357 x10(3)/mc L [facility] RDW Standard Deviation 43.9 36.0 - 45.0 fL [facility] RDW coefficient of variation 13.1 11.4 - 13.8 % [facility] Mean Platelet Volume 10.0 7.6 - 12.9 fL [facility] NRBC% auto 0.0 % [facility] NRBC Absolute 0.000 0.000 - 0.000 x10(3)/mc L [facility] Blood specimen (specimen) 06/17/2020 1:48 PM EST 06/17/2020 2:00 PM EST Narrative Resulting Agency Comment Spec In Lab Too Morgan MD HEMATOLOGY ORDERABL ES [facility] [place] [address] * (ABNORMAL) Basic Metabolic Panel (non-fasting) (06/17/2020 1:48 PM EST) Glucose 258(H) 65 - 199 mg/dL [facility] Comment:Diabetes: >=200 mg/d L plus symptoms Blood Urea Nitrogen 15 10 - 20 mg/dL [facility] Creatinine 2.44(H) 0.80 - 1.50 mg/dL [facility] Sodium 137 135 - 145 mmol/L [facility] Potassium 4.0 3.5 - 5.0 mmol/L [facility] Comment: Please note: ??Patients with WBC >100,000 may have falsely elevated Potassium levels. ??For accurate Potassium quantification in these patients send serum separator tube (gold top) for subsequent determinations. ??Contact the Clinical Chemistry Laboratory if there are any questions. Chloride 93(L) 98 - 107 mmol/L [facility] Carbon Dioxide 35(H) 22 - 31 mmol/L [facility] Anion Gap 9 5 - 15 mmol/L [facility] Calcium 9.6 8.5 - 10.5 mg/dL [facility] Est Glomerular Filtration Rate 28(L) >=60 mL/min/1. 73 m?? [facility] Comment: This patient? s [...] MD CHEMISTRY ORDERABLE S Performing Organization Address City/State/[facility] [place] [address] documented in this encounter Visit Diagnoses Diagnosis [...] Routine documented in this encounter Care Teams Rag Cutting Machine Operator Relationship Specialty Start Date End Date Jarad Keller DNP PCP - General Family Medicine 06/05/18 02/09/21 documented as of this encounter
--- OUTSIDE RECORDS SUMMARY | 2024-01-03 16:15 | XMS_ITS | Encounter Summary ---
Author Organization [facility] [place] [address] Care Team Providers Care Digital Printer Name Role Phone Jarad Keller DANIKA Primary Care Provider [phone] Reason for Referral * Consultation (Routine) - Closed Specialty Diagnoses / Procedures Referred By Puneet hallman Referred To Contact Transplant Diagnoses ESRD (end stage renal disease) Procedures Txp Too Lynn MD [facility] [place] [address] Young Watts MD [facility] [place] [address] Referral ID Status Reason Start Date Expiration Date V isits Requested Visits Authorized [id number] Closed Consult, Test & Treat 12/18/2019 12/17/2020 1 1 Encounter Details Date Type Department Care Team (Late st Contact Info) Description 12/18/2019 Orders Only Nephrology [place] [address] Too Morgan MD [facility] [place] [address] ESRD (end stage renal disease) (Primary Dx); [...] examination documented in this encounter Care Teams Digital Printer Relationship Specialty Start Date End Date Jarad Keller DNP PCP - General Family Medicine 06/05/18 02/09/21 documented as of this encounter
--- OUTSIDE RECORDS SUMMARY | 2024-01-03 16:15 | XMS_ITS | Encounter Summary ---
Author Organization [facility] [place] [address] Care Team Providers Care Senior Storage Administrator Name Role Phone Jarad Keller DNP Primary Care Provider [phone] Encounter Details Date Type Department Care Team (Late st Contact Info) Description 06/17/2020 2:30 PM EST - 06/17/2020 4:30 [place] [id number] Ceasar Gonzalez MD [facility] DR DIAGNOST[place] [address] FISTULAGRAM Social History Tobacco Use Types Packs/Day [...] MD POINT OF CARE TEST O RDERABLES [facility] [place] [address] * (ABNORMAL) POCT Glucose (06/17/2020 2:04 PM EST) [facility] Glucose, POC 243(H) 65 - 199 mg/dL [facility] Comment: Supplemental ranges: <140 mg/dL before meals <180 mg/dL all other times of the day Blood specimen (specimen) 06/17/2020 2:04 PM EST 06/17/2020 2:04 PM EST Ceasar Gonzalez MD POINT OF CARE TEST O FREDERICKERAROSIE Performing Organization Address [facility] Co de Phone Number [facility] [place] [address] * (ABNORMAL) Hemogram (06/17/2020 1:48 PM EST) [facility] White Blood Cell 7.0 4.0 - [...] RDW Standard Deviation 43.9 36.0 - 45.0 [facility] RDW coefficient of variation 13.1 [...] MD HEMATOLOGY ORDERABL ES [facility] [place] [address] * (ABNORMAL) Basic Metabolic Panel (non-fasting) (06/17/2020 [...] Lab Too Morgan MD CHEMISTRY ORDERABLE S [facility] [place] [address] documented in this encounter Visit Diagnoses Not [...] Routine documented in this encounter Care Teams Senior Storage Administrator Relationship Specialty Start Date End Date Jarad Keller DNP PCP - General Family Medicine 06/05/18 02/09/21 documented as of this encounter
--- OUTSIDE RECORDS SUMMARY | 2024-01-03 16:15 | XMS_ITS | Encounter Summary ---
[place] [address] Care Team Providers Care Application Analyst Name Role Phone Jarad Keller DANIKA Primary Care Provider [phone] Reason for Referral * Diagnostic Test (Routine) - Closed Specialty Diagnoses / Procedures Referred By Puneet ahllman Referred To Contact Radiology Diagnoses ESRD (end stage renal disease) Procedures IR Dialysis Access - AV Fistula Evaluations Too Morgan MD [facility] [place] [address] [place] [address] Referral ID Status Reason Start Date Expiration Date V isits Requested Visits Authorized [id number] Closed Specialty Service Requested 06/03/2020 12/01/2021 1 1 Reason for Visit * Diagnostic Test (Routine) - Closed Specialty Diagnoses / Procedures Referred By Contariel hallman Referred To Contact Radiology Diagnoses ESRD (end stage renal disease) Procedures IR Dialysis Access - AV Fistula Evaluations Too Morgan MD [facility] [place] [address] [facility] [place] [address] Referral ID Status Reason Start Date Expiration Date V isits Requested Visits Authorized [id number] Closed Specialty Service Requested 06/03/2020 12/01/2021 1 1 Encounter Details Date Type Department Care Team (Latest Contact Info) Description 06/17/2020 2:30 PM EST - 06/17/2020 11:59 PM EST Hospital [place] [address] Too Morgan MD [facility] [place] [address] ESRD on dialysis; Type 2 [...] of this encounter H&P Notes * Narinder Rivrea MD - 06/17/2020 2:12 PM EST INTERVENTIONAL [...] will study be performed? [facility] Radiology [120] Laterality Left Is the [...] experiencing decreased flows. No prior interventions by [facility] IR. History of type 2 insulin-dependent [...] tablet 3 ??? OneTouch Verio Flex meter [facility] TEST BLOOD GLUCOSE THREE TIMES A DAY [...] unit (V-GO 20) Device 1 each by [facility] [...] Erasmo Bajwa MD at [facility] OSC ? ? PRO REPAIR COMPLEX RETINA DETACH VITRECTOMY & MEMB PEEL 04/03/2012, 04/03/12 REPAIR COMPLEX RETINAL DETACHMENT, W/ VITRECTOMY, MEMBRANE PEELING performed by Matteo Diane MD at [facility] MAIN OR ? ? PRO REPAIR COMPLEX RETINA DETACH VITRECTOMY & MEMB PEEL 07/31/2012 REPAIR COMPLEX RETINAL DETACHMENT, W/ VITRECTOMY, MEMBRANE PEELING performed by Matteo Diane MD at [facility] MAIN OR ? ? PRO REPAIR COMPLEX RETINA DETACH VITRECTOMY & MEMB PEEL 01/08/2013 REPAIR COMPLEX RETINAL DETACHMENT, W/ VITRECTOMY, MEMBRANE PEELING performed by Matteo Diane MD at [facility] MAIN OR ??? PRO TX EXTENSIVE [...] will study be performed? [facility] Radiology [120] Laterality Left Is the [...] experiencing decreased flows. No prior interventions by [facility]. History of type 2 insulin-dependent diabetes [...] tablet 3 ??? OneTouch Verio Flex meter [facility] TEST BLOOD GLUCOSE THREE TIMES A DAY [...] unit (V-GO 20) Device 1 each by [facility] [...] Erasmo Bajwa MD at [facility] OSC ? ? PRO REPAIR COMPLEX RETINA DETACH VITRECTOMY & MEMB PEEL 04/03/2012, 04/03/12 REPAIR COMPLEX RETINAL DETACHMENT, W/ VITRECTOMY, MEMBRANE PEELING performed by Matteo Diane MD at [facility] MAIN OR ? ? PRO REPAIR COMPLEX RETINA DETACH VITRECTOMY & MEMB PEEL 07/31/2012 REPAIR COMPLEX RETINAL DETACHMENT, W/ VITRECTOMY, MEMBRANE PEELING performed by Matteo Diane MD at [facility] MAIN OR ? ? PRO REPAIR COMPLEX RETINA DETACH VITRECTOMY & MEMB PEEL 01/08/2013 REPAIR COMPLEX RETINAL DETACHMENT, W/ VITRECTOMY, MEMBRANE PEELING performed by Matteo Diane MD at [facility] MAIN OR ??? PRO TX EXTENSIVE [...] experiencing decreased flows. ??No prior interventions by [facility]. 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 Remainder of patient's medical and surgical history, allergies, medications, and social/family history obtained below as previously outlined in patient's medical record. Per patient he fistula created in [place] about 5 years ago. He has undergone one prior fistulagram in [place] with intervention. Technique: After obtaining informed consent, [...] used to dilate the cephalic stenosis. ??Post RETAIL STORE ASSOCIATE radial artery arteriography showed resolution of the [...] stenosis AV anastomosis resolved with 5 mm RETAIL STORE ASSOCIATE 3. ??Moderate/severe 2 cm juxta anastomotic cephalic vein stenosis resolved with 6 mm RETAIL STORE ASSOCIATE. 4. ??Outflow from elbow centrally via both cephalic and basilic systems without central stenoses. 5. ??Coil from prior intervention at outside hospital in the forearm approximately 4 cm central to the AV anastomosis. ??Presumably placed in a side branch vein. Plan/Disposition: 1) To Same day recovery room, may discharge to home when meets criteria. 2) left upper extremity dialysis fistula ready for use. Display Artist(s): Resident/Fellow: Narinder Rivera Attending: Dr. Larson. ??I, Dr. Larson was present throughout this procedure. 06/17/2020 Too Morgan MD [facility] [place] ORDERABLES * (ABNORMAL) Basic Metabolic Panel (non-fasting) (06/17/2020 1:48 PM EST) Glucose 258(H) 65 - 199 mg/dL [facility] Comment:Diabetes: >=200 mg/d L plus symptoms Blood Urea Nitrogen 15 10 - 20 mg/dL [facility] Creatinine 2.44(H) 0.80 - 1.50 mg/dL [facility] Sodium 137 135 - 145 mmol/L [facility] Potassium 4.0 3.5 - 5.0 mmol/L [facility] Comment: Please note: ??Patients with WBC >100,000 may have falsely elevated Potassium levels. ??For accurate Potassium quantification in these patients send serum separator tube (gold top) for subsequent determinations. ??Contact the Clinical Chemistry Laboratory if there are any questions. Chloride 93(L) 98 - 107 mmol/L [facility] Carbon Dioxide 35(H) 22 - 31 mmol/L [facility] Anion Gap 9 5 - 15 mmol/L [facility] Calcium 9.6 8.5 - 10.5 mg/dL [facility] Est Glomerular Filtration Rate 28(L) >=60 mL/min/1. 73 m?? [facility] Comment: This patient? s [...] Lab Too Morgan MD CHEMISTRY ORDERABLE S [facility] [place] [address] * (ABNORMAL) Hemogram (06/17/2020 1:48 PM EST) White Blood Cell 7.0 4.0 - 9.5 x10(3)/mc L [facility] Red Blood Cell 4.09(L) 4.58 - 5.54 x10(6)/mc L [facility] Hemoglobin 12.9(L) 13.7 - 16.5 gm/dL [facility] Hematocrit 37.3(L) 40.5 - 48.5 % [facility] Mean Cell Volume 91.2 82.9 - 93.1 fL [facility] Mean Cell Hemoglobin 31.5 27.5 - 32.1 pg [facility] Mean Cell Hemoglobin Concentration 34.6 32.0 - 35.7 gm/dL [facility] Platelet 142(L) 145 - 357 x10(3)/mc L [facility] RDW Standard Deviation 43.9 36.0 - 45.0 fL [facility] RDW coefficient of variation 13.1 11.4 - 13.8 % [facility] Mean Platelet Volume 10.0 7.6 - 12.9 fL [facility] NRBC% auto 0.0 % [facility] NRBC Absolute 0.000 0.000 - 0.000 x10(3)/mc L [facility] Blood specimen (specimen) 06/17/2020 1:48 PM EST 06/17/2020 2:00 PM EST Narrative Resulting Agency Comment Spec In Lab Too Morgan MD HEMATOLOGY ORDERABL ES [facility] [place] [address] documented in this encounter Visit Diagnoses Diagnosis [...] mLs documented in this encounter Care Teams Application Analyst Relationship Specialty Start Date End Date Jarad Keller DNP PCP - General Family Medicine 06/05/18 02/09/21 documented as of this encounter
--- OUTSIDE RECORDS SUMMARY | 2024-01-03 16:15 | XMS_ITS | Encounter Summary ---
[place] [address] Care Team Providers Care Obstetrician Name Role Phone Jarad Keller DNP Primary Care Provider [phone] Encounter Details Date Type Department Care Team (Late st Contact Info) Description 01/01/2020 Telephone [place] [address] Becca Bansal Social History Tobacco Use Types [...] on filedocumented in this encounter Care Teams Obstetrician Relationship Specialty Start Date End Date Jarad Keller DNP PCP - General Family Medicine 06/05/18 02/09/21 documented as of this encounter
--- OUTSIDE RECORDS SUMMARY | 2024-01-03 16:16 | XMS_ITS | Encounter Summary ---
[place] [address] Care Team Providers Care Floatman Name Role Phone Jarad Keller DNP Primary Care Provider [phone] Encounter Details Date Type Department Care Team (Late st Contact Info) Description 08/07/2019 12:05 AM EDT Ancillary Procedure [place] [address] Jarad Keller DNP [address] [place] [address] Social History Tobacco Use Types [...] FILM LIBRARY OR DERABLES Performing Organization Address City/State/[facility] Co de Phone Number [place], [place] documented in this encounter Visit Diagnoses Not on filedocumented in this encounter Care Teams Floatman Relationship Specialty Start Date End Date Jarad Keller DNP PCP - General Family Medicine 06/05/18 02/09/21 documented as of this encounter
--- OUTSIDE RECORDS SUMMARY | 2024-01-03 16:16 | XMS_ITS | Encounter Summary ---
[place] [address] Care Team Providers Care Airdrop Systems Technician Name Role Phone Jarad Keller DNP Primary Care Provider [phone] Encounter Details Date Type Department Care Team (Late st Contact Info) Description 08/07/2019 12:10 AM EDT Ancillary Procedure [place] [address] Jarad Keller DNP [address] [place] [address] Social History Tobacco Use Types [...] FILM LIBRARY OR DERABLES Performing Organization Address City/State/[facility] Co de Phone Number [place], [place] documented in this encounter Visit Diagnoses Not on filedocumented in this encounter Care Teams Airdrop Systems Technician Relationship Specialty Start Date End Date Jarad Keller DNP PCP - General Family Medicine 06/05/18 02/09/21 documented as of this encounter
--- OUTSIDE RECORDS SUMMARY | 2024-01-03 16:16 | XMS_ITS | Encounter Summary ---
[place] [address] Care Team Providers Care Horse Rancher Name Role Phone Jarad Keller DNP Primary Care Provider [phone] Encounter Details Date Type Department Care Team (Late st Contact Info) Description 08/13/2019 Ancillary Procedure [place] [address] Lavern Velez APRN [facility] [place] [address] Social History Tobacco Use Types Packs/Day Years [...] IMG FILM LIBRARY ORDERABLES Performing Organization Address City/State/[facility] Co de Phone Number [place], [place] documented in this encounter Visit Diagnoses Not on filedocumented in this encounter Care Teams Horse Rancher Relationship Specialty Start Date End Date Jarad Keller DNP PCP - General Family Medicine 06/05/18 02/09/21 documented as of this encounter
--- OUTSIDE RECORDS SUMMARY | 2024-01-03 16:16 | XMS_ITS | Encounter Summary ---
[place] [address] Care Team Providers Care Tank Car Cleaner Name Role Phone Jarad Keller DNP Primary Care Provider [phone] Encounter Details Date Type Department Care Team ([facility] Contact Info) Description 09/14/2019 Telephone [place] [phone] Cherelle Sims LPN Social History Tobacco Use [...] Received message from patient stating that [facility] in [place], [place] does not have his prescriptions for VGo insulin pump, or his insulin. He would like this done today! Last visit was via , but noted scripts had gone to [facility] in [place], [place]. I called [facility], and they state theydo not stock the VGo insulin pump; that would have to come from a Durable Medical Equipment supplier (DME). Patient may require long acting insulin until pump can be obtained, all scripts to go to [facility] in [place], [place]. *At this time, patient is not aware of DME need for pump. Note forwarded to Dr. Roy documented in this encounter Plan of Treatment Not on file documented as of this encounter Visit Diagnoses Not on filedocumented in this encounter Care Teams Tank Car Cleaner Relationship Specialty Start Date End Date aJrad Keller DNP PCP - General Family Medicine 06/05/18 02/09/21 documented as of this encounter
--- OUTSIDE RECORDS SUMMARY | 2024-01-03 16:16 | XMS_ITS | Encounter Summary ---
[place] [address] Care Team Providers Care Business Intelligence Reporting Analyst Name Role Phone Jarad Keller DNP Primary Care Provider [phone] Encounter Details Date Type Department Care Team (Late st Contact Info) Description 08/07/2019 Ancillary Procedure [place] [address] Jarad Keller DNP [address] [place] [address] Social History Tobacco Use Types [...] FILM LIBRARY OR DERABLES Performing Organization Address City/State/[facility] Co de Phone Number [place], [place] documented in this encounter Visit Diagnoses Not on filedocumented in this encounter Care Teams Business Intelligence Reporting Analyst Relationship Specialty Start Date End Date Jarad Keller DNP PCP - General Family Medicine 06/05/18 02/09/21 documented as of this encounter
--- OUTSIDE RECORDS SUMMARY | 2024-01-03 16:16 | XMS_ITS | Encounter Summary ---
[place] [address] Care Team Providers Care Hay Sorter Name Role Phone Jarad Keller DNP Primary Care Provider [phone] Encounter Details Date Type Department Care Team (Late st Contact Info) Description 08/28/2019 Telephone [place] [phone] Kameron Frey Social History Tobacco Use Types [...] 08/28/2019 11:08 AM EDT Patient's physician from , Dr. Stephens, called to inquire about the patient's weightbearing status. He already has the last note from the patient's visit on 24 August 2019. This message was forwarded to Dr. Vergara for guidance. documented in this encounter Plan of Treatment Not on file documented as of this encounter Visit Diagnoses Not on filedocumented in this encounter Care Teams Hay Sorter Relationship Specialty Start Date End Date Jarad Keller DNP PCP - General Family Medicine 06/05/18 02/09/21 documented as of this encounter
--- OUTSIDE RECORDS SUMMARY | 2024-01-03 16:16 | XMS_ITS | Encounter Summary ---
[place] [address] Care Team Providers Care Blender Name Role Phone Jarad Keller DANIKA Primary Care Provider [phone] Encounter Details Date Type Department Care Team (Late st Contact Info) Description 08/16/2019 Orders Only [place] [address] Jacinta Pressley, [facility] [place] [address] Closed fracture of multiple ribs of right [...] encounter documented in this encounter Care Teams Blender Relationship Specialty Start Date End Date Jarad Keller DNP PCP - General Family Medicine 06/05/18 02/09/21 documented as of this encounter
--- OUTSIDE RECORDS SUMMARY | 2024-01-03 16:16 | XMS_ITS | Encounter Summary ---
[place] [address] Care Team Providers Care Electrotype Finisher Name Role Phone Jarad Keller DNP Primary Care Provider [phone] Encounter Details Date Type Department Care Team (Late st Contact Info) Description 08/16/2019 Ancillary Procedure [place] [address] Jarad Keller DNP [address] [place] [address] Social History Tobacco Use Types [...] LIBRARY OR DERABLES Performing Organization Address City/State/[facility] Co de Phone Number [place], [place] documented in this encounter Visit Diagnoses Not on filedocumented in this encounter Care Teams Electrotype Finisher Relationship Specialty Start Date End Date Jarad Keller DNP PCP - General Family Medicine 06/05/18 02/09/21 documented as of this encounter
--- OUTSIDE RECORDS SUMMARY | 2024-01-03 16:16 | XMS_ITS | Encounter Summary ---
Author Organization [facility] [place] [address] Care Team Providers Care Stakeholder Manager Name Role Phone Jarad Keller DNP Primary Care Provider [phone] Reason for Visit * Reason Onset Date Comments Medication Refill 09/17/2019 Encounter Details Date Type Department Care Team (Late st Contact Info) Description 09/17/2019 Refill [place] [address] Ceasar Roy MD [facility] DR [place] [address] Social History Tobacco Use Types Packs/Day Years [...] on filedocumented in this encounter Care Teams Stakeholder Manager Relationship Specialty Start Date End Date Jarad Keller DNP PCP - General Family Medicine 06/05/18 02/09/21 documented as of this encounter
--- OUTSIDE RECORDS SUMMARY | 2024-01-03 16:16 | XMS_ITS | Encounter Summary ---
[place] [address] Care Team Providers Care Pet House Sitter Name Role Phone Jarad Keller DANIKA Primary Care Provider [phone] Reason for Visit * Reason Onset Date Comments Follow-up 08/07/2019 Encounter Details Date Type Department Care Team (Late st Contact Info) Description 08/07/2019 [place] [phone] Louis Vergara MD [facility] [place] [address] Follow-up Social History Tobacco Use Types Packs/Day [...] 11:00 AM EDT Yohannes called back from [facility] regarding the appointments for tomorrow: He is [...] Lavern Govea Yohannes can be reached at [facility] at [phone] * Telephone Encounter - Cheli Guzman - [...] on Maurice, left message for Yohannes at [facility]. She can be patchedover to [place] when she calls back. * Telephone Encounter - Cheli Guzman - 08/07/2019 3:[address] Vergara advised ok for telephone visit. I called back to arrange the appointment with Dr. Vergara this Tuesday for a telephone office visit. Yohannes at [facility] was going to give me the phone number in his room to call him when she noticed he was transported acutely this morning 08/07/19 to [employer]. 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 She will return call to us on . Yohannes from [facility], // ?? * Telephone Encounter - Cheli [...] the XR orders to be obtained at [facility]. They will send us the images and reports. Yohannes from [facility], // In basket message sent to Dr. Vergara to advise documented in this encounter Plan of Treatment Not on file documented as of this encounter Visit Diagnoses Not on filedocumented in this encounter Care Teams Pet House Sitter Relationship Specialty Start Date End Date Jarad Keller DNP PCP - General Family Medicine 06/05/18 02/09/21 documented as of this encounter
--- OUTSIDE RECORDS SUMMARY | 2024-01-03 16:16 | XMS_ITS | Encounter Summary ---
Author Organization [facility] Address [facility] [place] [address] Care Team Providers Care Anesthesiologist Assistant Name Role Phone Jarad Keller DANIKA Primary Care Provider [phone] Reason for Referral * Physical Therapy (Routine) - Closed Specialty Diagnoses / Procedures Referred By Contac t Referred To Contact Diagnoses Closed nondisplaced fracture of shaft of right clavicle, initial encounter Closed fracture of proximal end of right humerus, unspecified fracture morphology, initial encounter Louis Vergara MD [facility] [place] [address] Unknown None Referral ID Status Reason Start Date Expiration Date V isits Requested Visits Authorized [id number] Closed Evaluate and Treat 08/24/2019 02/20/2020 12 12 Reason for Visit * Consultation (Urgent) - Specialty Diagnoses / Procedures Referred By Contac t Referred To Contact Orthopaedics Diagnoses RIGHT 2 PART PROX HUM FX, NON SAIDPLACED MIDSHAFT CLAVICLE FX AND R SCAPULAR BODY FX DOI 07/29/2019 Toni Maya MD [facility] [place] [address] [facility] [address] [place] [address] Referral ID Status Reason Start Date Expiration Date V isits Requested Visits Authorized [id number] 07/30/2019 07/29/2020 1 1 Encounter Details Date Type Department Care Team (Latest Contact Info) Description 08/24/2019 8:00 AM EDT TH Visit (TeleHealth) Orthopaedics at [facility] [place] [address] Louis Vergara MD [facility] [place] [address] Closed fracture of proximal end of right [...] fracture, possible nondisplaced right scapula fracture At [facility] Had repeat xrays of the right shoulder on 08/15 Still feels like can't do much with the right shoulder. Not too much pain however. Can't lift the arm at all Has been doing PT Feels like it is just not moving. Index, thumb, middle feel slightly numb, just since the injury. Still in a sling. RHD Lives with and child normally in [place]. Imaging: Right shoulder xrays with minimally displaced [...] encounter documented in this encounter Care Teams Anesthesiologist Assistant Relationship Specialty Start Date End Date Jarad Keller DNP PCP - General Family Medicine 06/05/18 02/09/21 documented as of this encounter
--- OUTSIDE RECORDS SUMMARY | 2024-01-03 16:16 | XMS_ITS | Encounter Summary ---
[place] [address] Care Team Providers Care Brake Shoe Rebuilder Name Role Phone Jarad Keller DNP Primary Care Provider [phone] Encounter Details Date Type Department Care Team (Late st Contact Info) Description 08/23/2019 Telephone [place] [phone] Mariajose Mitchell Social History Tobacco Use Types [...] at a local hospital. CT done at [facility] on 08/12. Please review CT in edh, does the patient need further f/u or a TOV scheduled with you? Thank you, Mariajose * Telephone Encounter - Mariajose Mitchell - 08/23/2019 2:33 PM EDT Pt scheduled for f/u 08/16 canceled due to being inpatient at local hospital. Called and pt had CT done at [facility]. for CT Head from 08/12 to be pushed for review by [facility] or [facility]PS. Follow-up will be scheduled in the Neuro[facility] in 2 weeks. Follow-up imaging ordered: CT Head documented in this encounter Plan of Treatment Not on file documented as of this encounter Visit Diagnoses Not on filedocumented in this encounter Care Teams Brake Shoe Rebuilder Relationship Specialty Start Date End Date Jarad Keller DNP PCP - General Family Medicine 06/05/18 02/09/21 documented as of this encounter
--- OUTSIDE RECORDS SUMMARY | 2024-01-03 16:16 | XMS_ITS | Encounter Summary ---
Author Organization [facility] [place] [address] Care Team Providers Care [employer] Sales Name Role Phone Jarad Keller DNP Primary Care Provider [phone] Reason for Visit * Reason Comments Trauma * Auth/Cert Specialty Diagnoses / Procedures Referred By Puneet t Referred To Contact Diagnoses Fall Fall, initial encounter Referral ID Status Reason Start Date Expiration Date Visits Re quested Visits Authorized [id number] 1 1 Encounter Details Date Type Department Care Team (Latest Contact Info) Description 07/29/2019 11:53 PM EDT - 08/04/2019 3:45 PM EDT Hospital Encounter [address] [place] [address] Kimani Kiser MD [facility] [place] [address] Aaron Dover MD [facility] [place] [address] Eliot Cohen MD [facility] [place] [address] Fall, initial encounter; Closed fracture of proximal [...] wound care ?? Trauma Clinic or Primary Dental Assistant? Scheduled Appointments: The following appointments have been scheduled on your behalf: Future Appointments Date Time Provider Department Center 08/07/2019 8:45 AM [facility] DX ROOM 1 MH Xray [facility] Rad 08/07/2019 9:00 AM [facility] DX ROOM 1 MH Xray [facility] Rad 08/07/2019 10:00 AM Faye Valle PA [facility] ORTH 3C [facility] 08/17/2019 9:15 AM [facility] DB XRAY ROOM 2 MH Xray [facility] Rad 08/17/2019 10:30 AM Jacinta Pressley APRN [facility] SURG [facility] 08/17/2019 11:[address] [facility] [address] [facility] Rad 08/17/2019 1:00 PM Lavern Velez APRN [facility] [id number] [facility] 08/29/2019 2:30 PM Ceasar Roy MD [facility] ENDO [facility] 10/12/2019 2:30 PM Harmeet Arvizu MD [facility] OPHT 4B [facility] Other In-hospital Issues: - Acute pain - [...] Maurice A Rudolph??is a 59 y.o.??male??presents to [facility] s/p fall. ??Description of events leading upto injury includes patient was walking up his stairs at home, lost control, and fell down 12 stairs. He states that the last thing he remembers before losing consciousness is the realization that he is falling.??He was worked up with imaging at [facility] prior to transfer here. ?? Primary survey [...] rehab and he accepted a bed at [facility]. Hi transfer was postponed on 08/02 due [...] juice or regular (not diet) soda 6 [employer] small box of raisins 4 glucose tablets [...] exclude potential malignancy. Alternatively, depending on the knmtc-xg-mwqo, this can potentially be reevaluated on clinically-decided [...] humeral fracture is not included in the kebxv-rg-pmax. Known right second rib fracture is not visible. There is curvilinear density along the right apical and lateral chest wall that is similar to prior,most likely extrapleural blood. No distended loops of bowel. EKG leads overlie the patient and obscure the qoxuz-tg-doej. ?? 1. Small left pleural fluid collection [...] exclude potential malignancy. Alternatively, depending on the ysjij-mi-rfhe, thiscan potentially be reevaluated on clinically-decided follow-up [...] Time Provider Department Center 08/07/2019 8:45 AM [facility] DX ROOM 1 MH Xray [facility] Rad 08/07/2019 9:00 AM [facility] DX ROOM 1 MH Xray [facility] Rad 08/07/2019 10:00 AM Faye Valle PA [facility] ORTH 3C [facility] 08/17/2019 9:15 AM [facility] DB XRAY ROOM 2 MH Xray [facility] Rad 08/17/2019 10:30 AM Jacinta Pressley APRN [facility] SURG [facility] 08/17/2019 11:[address] [facility] [address] [facility] Rad 08/17/2019 1:00 PM Lavern Velez APRN [facility] [id number] [facility] 08/29/2019 2:30 PM Ceasar Roy MD [facility] ENDO [facility] 10/12/2019 2:30 PM Harmeet Arvizu MD [facility] OPHT 4B [facility] Outpatient Services/Studies: CT Head wo Contrast (Generic) Standing Status: Future Standing Exp. Date: 02/27/20 Question Response Notes Where will study be performed? [facility] Radiology [120] Special Instructions Given to [...] anticoagulant, and non-steroidal anti-inflammatory (NSAIDs) drugs. Common watk-ypy-pzpysgm medications which should be avoided include Aspirin, [...] a head injury. - When your health personal care worker says you are well enough, return to your normal activities gradually, not all at once. - Talk with your health personal care worker about when you can return to work. [...] Provider. Please call the Neurosurgery Office at [phone] if you do not receive a scheduled [...] wound care ?? Trauma Clinic or Primary Dental Assistant? As a result of your CT scans, you were found to have the following incidental findings, please discuss with your primary care provider at you next visit: -??Focal infrarenal abdominal aortic ectasia up to 2.4 cm.?? -Very mild nasopharyngeal asymmetry, may or may not be debris; consider direct visualization to exclude potential malignancy. Alternatively, depending on the argmg-xe-zlds, this can potentially be reevaluated on clinically-decided [...] Time Provider Department Center 08/07/2019 8:45 AM [facility] DX ROOM 1 MH Xray [facility] Rad 08/07/2019 9:00 AM MH DX ROOM 1 MH Xray [facility] Rad 08/07/2019 10:00 AM Faye Valle PA [facility] ORTH 3C [facility] 08/17/2019 9:15 AM [facility] DB XRAY ROOM 2 MH Xray [facility] Rad 08/17/2019 10:30 AM Jaicnta Pressley APRN [facility] SURG [facility] 08/17/2019 11:[address] [facility] [address] [facility] Rad 08/17/2019 1:00 PM Lavern Velez APRN [facility] [id number] [facility] 08/29/2019 2:30 PM Ceasar Roy MD [facility] ENDO [facility] 10/12/2019 2:30 PM Harmeet Arvizu MD [facility] OPHT 4B [facility] Driving Restrictions: - No driving if you [...] 1. You will have follow-up appointments at [facility] as indicated in the ???Future Appointments and [...] on the next business . Please call [phone] if you do not hear from us by that time, as your timely follow-up is very important to us. Your care was managed by the Trauma and Acute Care Surgery Team at [facility]. If you have any questions or concerns, please feel free to contact us. Provider Contact Information: General Surgery: [facility] (after business hours): Primary Care Physician: Jarad [...] bowel movement. You can also take an ydpf-wfe-iduzkkt medication, Miralax if needed to combat constipation. [...] bath may be easier. Call your doctor ([phone]) if you develop: 1. Fever greater than [...] 1. You will have follow-up appointments at [facility] as indicated in Future Appointment and Orders. [...] Time Provider Department Center 08/07/2019 8:45 AM [facility] DX ROOM 1 Xray [facility] Rad 08/07/2019 9:00 AM [facility] DX ROOM 1 MH Xray [facility] Rad 08/07/2019 10:00 AM Faye Valle PA [facility] ORTH 3C [facility] 08/29/2019 2:30 PM Ceasar Roy MD [facility] ENDO [facility] 10/12/2019 2:30 PM Harmeet Arvizu MD [facility] OPHT 4B [facility] If you have questions or concerns: Tuesday [...] Acute Care Surgery Team at [facility]. If you have any questions or concerns, please feel free to contact us. Provider Contact Information: General Surgery Clinic: Nurses line for questions: [facility] (after business hours): CC: CHINO Casanova APRN Signed: Kendra Goff APRN Department of Surgery 08/04/2019 Trauma pager [phone] documented in this encounter Discharge Instructions * [...] bowel movement. You can also take an mwzi-zkc-qoboxdl medication, Miralax if needed to combat constipation. [...] bath may be easier. Call your doctor ([phone]) if you develop: 1. Fever greater than [...] 1. You will have follow-up appointments at [facility] as indicated in Future Appointment and Orders. [...] Time Provider Department Center 08/07/2019 8:45 AM [facility] DX ROOM 1 Xray [facility] Rad 08/07/2019 9:00 AM [facility] DX ROOM 1 Xray [facility] Rad 08/07/2019 10:00 AM Faye Valle PA [facility] ORTH 3C [facility] 08/29/2019 2:30 PM Ceasar Roy MD [facility] ENDO [facility] 10/12/2019 2:30 PM Harmeet Arvizu MD [facility] OPHT [address] [place] [address] If you have questions or concerns: Tuesday [...] anticoagulant, and non-steroidal anti-inflammatory (NSAIDs) drugs. Common xkhl-snd-nljdplk medications which should be avoided include Aspirin, [...] a head injury. - When your health personal care worker says you are well enough, return to your normal activities gradually, not all at once. - Talk with your health personal care worker about when you can return to work. [...] Provider. Please call the Neurosurgery Office at [phone] if you do not receive a scheduled [...] wound care ?? Trauma Clinic or Primary Dental Assistant? As a result of your CT scans, you were found to have the following incidental findings, please discuss with your primary care provider at you next visit: -??Focal infrarenal abdominal aortic ectasia up to 2.4 cm.?? -Very mild nasopharyngeal asymmetry, may or may not be debris; consider direct visualization to exclude potential malignancy. Alternatively, depending on the ufmcn-ou-afda, this can potentially be reevaluated on clinically-decided [...] Time Provider Department Center 08/07/2019 8:45 AM [facility] DX ROOM 1 MH Xray [facility] Rad 08/07/2019 9:00 AM [facility] DX ROOM 1 MH Xray [facility] Rad 08/07/2019 10:00 AM Faye Valle PA [facility] ORTH 3C [facility] 08/17/2019 9:15 AM [facility] DB XRAY ROOM 2 MH Xray [facility] Rad 08/17/2019 10:30 AM Jacinta Pressley APRN [facility] SURG [facility] 08/17/2019 11:[address] [facility] [address] [facility] Rad 08/17/2019 1:00 PM Lavern Velez APRN [facility] [id number] [facility] 08/29/2019 2:30 PM Ceasar Roy MD [facility] ENDO [facility] 10/12/2019 2:30 PM Harmeet Arvizu MD [facility] OPHT 4B [facility] Driving Restrictions: - No driving if you [...] 1. You will have follow-up appointments at [facility] as indicated in the ???Future Appointments and [...] on the next business day. Please call [phone] if you do not hear from us by that time, as your timely follow-up is very important to us. Your care was managed by the Trauma and Acute Care Surgery Team at [facility]. If you have any questions or concerns, please feel free to contact us. Provider Contact Information: General Surgery: [facility] (after business hours): Primary Care Physician: Jarad [...] 08/04/2019 3:45 PM EDT Office of Care Management/Anesthesiologists' Assistant Name: Maurice Rudolph Presenting Issue: Outpatient Dialysis Update Notified [facility] HD unit that patient is scheduled for discharge soon. The dialysis unit is ready for the patient on 08/07/2019. The patient will have a schedule of /Tue at 0745hrs. Plan: Discharge Summary and last acute dialysis records will be faxed to the power hair clipper upon discharge. This office will be available to the patient, Fisheries Inspector-RN and Safety Fire Boss for further assistance. Dialysis Unit Address: [place] [address] P: [phone] F: [phone] Christiano Onofre Resource SpecialistOffice of Care Management/Anesthesiologists' Assistant * Aicha Santa RN - 08/04/2019 3:28 PM EDT RN attempted to call report. Skein Bleacher at [facility] answered but was unable to get a facility RN toanswer. Nurse Advisor stated she will have facility RN call. Aicha Santa RN * Chalino Ceballos MD - 08/04/2019 2:20 PM EDT HYPERTENSION/ NEPHROLOGY PROGRESS NOTE PATIENT: Maurice Rudolph : 1960 ID:- 59 year old man with ESRD on HD (/TUE) at [facility] admitted with Right humeral, scapular, rib [...] Fellow Nephrology Acute Care Team Pager Number #[phone] Associated attestation - Petros Zamarripa MD - [...] 08/04/2019 9:44 AM EDT Office of Care Management/Anesthesiologists' Assistant Patient Name: Maurice Rudolph : 1960 Patient has been offered a IRF bed at [facility] arranged for a 1500hrs transport. Ambulance will need: Medicare ambulance form completed and signed (MD or Fisheries Inspector RN/BENEFITS CLERK) Copy of patient demographics [place] [facility] DNR/DNI order, if active No MD to MD report necessary Please call Nursing Report to [phone], ask for power hair clipper. Info to accompany patient: Narcotic Prescriptions Copies of Medication Administration Records and IV sheets for past 10 days. Plan: Anesthesiologists' Assistant will be available to the patient and Fisheries Inspector-RN and/or Social Workerfor further assistance. Patient will be discharged to: [facility] [address] Christiano Onofre Anesthesiologists' Assistant * Opal Garcia, RN - 08/04/2019 8:52 AM EDT Office of Care Management remote sensing analyst Opal Garcia (pager [phone]) Patient: Maurice Rudolph : 1960 (59 y.o.) Home: [facility] [address] LOS: 5 days [address] confirmation from [facility] [phone] that they are prepared to receive patient today Thursday 08/03 and are in agreement with his being transferred at 3:00pm. Requesting Anesthesiologists' Assistant to book S ambulance transport for pain with movement, unhealed fractures, and inability to maintain erect sitting position for duration of transport. Notified sister Adriana [phone] of today's discharge plans. Cofirmed with direct [...] 8:25 AM EDT Office of Care Management remote sensing analyst Opal Garcia (pager [phone]) Patient: Maurice Rudolph : 1960 (59 y.o.) Home: [facility] [address] LOS: 5 days [place] from Trauma 5178 that patient will be medically ready for discharge to acute rehab today Thursday 08/03 after dialysis session. Confirmed with direct care RN that patient can be ready for transport at 3:00pm. Left message at [facility] [phone] requesting confirmation of bed availability. Requesting Anesthesiologists' Assistant to contact [facility] via [employer] to confirm bed as well. Planning to request BLS ambulance transport for 3:00pm once [facility] bed is confirmed. Team is aware. [...] Progress Note Patient Name: Maurice Rudolph : [id number] MR#: [id number] 07/29/2019 Hospital Day 5 days Problem List: [...] wound care ?? Trauma Clinic or Primary Dental Assistant ?? Problem List: - Acute pain - [...] exclude potential malignancy. Alternatively, depending on the oaivb-na-etnv, this can potentially be reevaluated on clinically-decided follow- up examination of the intracranial hyperdense foci. []? Incidental Findings Form Completed Sandhya August APRN 08/03/2019 Trauma pager [phone] * Anabela Palacios RN - 08/03/2019 4:04 PM EDT RN-MEAT PRESS OPERATOR, Office of Care Management Anabela Palacios RN,BSN, ACM Pager # [phone] Patient offered bed at [facility] today- medically held due to altered mental status. [facility] can admit on the weekend if medically ready( after hemodialysis). Tamar will be in the admissions office tomorrow at [facility] and can be reached at [phone]. They are asking that insulin pump gets [...] your insulin doses adjusted. Narcisa Tovar APRN [facility] Endocrinology Diabetes Management Pager [phone] * Eldon Bermudez MBBS - 08/03/2019 12:49 PM EDT HYPERTENSION/ NEPHROLOGY PROGRESS NOTE PATIENT: Maurice Rudolph : 1960 ID:- 59 year old man with ESRD on HD (/TUE) at [facility] admitted with Right humeral, scapular, rib [...] Discussed w/ Dr. Dallin Bermudez Nephrology Fellow [id number] Associated attestation - Petros Zamarripa MD - [...] Progress Note Patient Name: Maurice Rudolph : [id number] MR#: [id number] 07/29/2019 Hospital Day 4 days Problem List: [...] lidocaine, naloxone, Glucose 40% oral gel OR tszslaqi60% OR glucagon (human recombinant) Events over the last 24 hrs: Confusion sems largely resolved Subjective: Awake, alert in no distress, knows he is at [facility] and knows it is 2020 Moderate abdominal [...] lidocaine, naloxone, Glucose 40% oral gel OR ifriwiqq42% OR glucagon (human recombinant) No Known Allergies [...] Palacios RN - 08/03/2019 10:39 AM EDT RN-MEAT PRESS OPERATOR, Office of Care Management Anabela Palacios RN,BSN, ACM Pager # [phone] e-DH reviewed. Patient discussed daily in interdisciplinary rounds. Patient has referral to [facility]. Spoke with forest practices field coordinator. OT asked for updated note. Teamfeels he is confused but redirectable and cooperative. Altered status may be from his pain management and HD. Endocrinology to review- if patient can manage his insulin pump independently than that would be acceptable. Spoke with Cari at [facility] - he has Medicaid spend down [...] [facility] gives approval will need ambulance transport. BENEFITS CLERK/Fisheries Inspector remains available as needed for coordination of [...] PM EDT Fall Event Note Maurice Rudolph [id number] 08/02/2019 Time of Fall: 2324 Was the fall witnessed No/Unobserved fall Patient's description of fall: I don't know Nursing staff description of fall: Bed alarm was going off, BUSINESS SUPPORT ASSOCIATE walked in and found pt on his [...] wound care ?? Trauma Clinic or Primary Dental Assistant ?? Problem List: - Acute pain - [...] Intake/Output Summary (Last 24 hours) at 08/02/2019 0095 Last data filed at 08/02/2019 1243 Gross [...] NBO: miralax, pericolace - Last BM: 07/29/19 (CHROMOSOMAL DISORDERS COUNSELOR) ?? RENAL: ESRD Requiring Hemodialysis Nephrology involved [...] exclude potential malignancy. Alternatively, depending on the qpryv-bd-zpgd, this can potentially be reevaluated on clinically-decided follow- up examination of the intracranial hyperdense foci. []? Incidental Findings Form Completed Sandhya August, FOOTBALL PAD REPAIRER 08/02/2019 Trauma pager [phone] * Lynda Harris RN - 08/02/2019 3:06 PM EDT Patient has bed offer for Acute rehab at [facility] when medically ready. Patient with intermittent [...] secondary Medicaid. Lynda Harris RN CM Pager [phone] * Eliot Cohen MD - 08/02/2019 2:19 PM EDT Images from the original note were not included. Patient Name: Maurice Rudolph Patient Age: 59 y.o. Birthdate: 1960 Admit date: 07/29/2019 Attending Physician: Eliot Cohen MD Trauma Service - Progress Note Patient Name: Maurice Rudolph : [id number] MR#: [id number] 07/29/2019 Hospital Day 3 days Problem List: [...] - mildly confused, knows he is at [facility] but it is 2020 Moderate abdominal distension [...] man with ESRD on HD (T//TUE) at [facility] admitted with Right humeral, scapular, rib [...] Discussed w/ Dr. Angelica Bermudez Nephrology Fellow [id number] Associated attestation - Katelynn Dominguez MD - [...] 11:02 AM EDT OFFICE OF CARE MANAGEMENT Fisheries Inspector Follow-up Note Patient plan of care discussed with BENEFITS CLERK and assessment for continuing care and discharge needs. Trauma team paged and awaiting callback. [facility]: 3 INSURANCE: Payor: MEDICARE / Plan: MEDICARE PART A & B / Product Type: *No Product type* / SECONDARY INSURANCE: N/A DECISION MAKER: Full Code Received Patient not ready for DC today per (Provider report to BENEFITS CLERK) due to some confusion. Patient will likely [...] sister, Adriana Lopez is the primary DPOA ([phone]). ALDO has updated the demographics with all the contacts in order. His sister Iva is the second DPOA ([phone]). His son, Ze ([phone]). Team advised to please call Adriana his [...] Adriana KRAFT has requested referrals to: 1. [facility] PHONE: [phone] FAX: [phone] Nurse to Nurse report: [phone] [address] [place] [address] ?? Expected date of discharge: 08/03/2019 Note routed to Anesthesiologists' Assistant who will communicate referrals to facilities and provide any required information. Fisheries Inspector to follow with team and family to assist with discharge needs when patient ready for discharge. Lynda Harris RN CM Pager [phone] * Giovana Ray RN - 08/02/2019 8:20 AM EDT Pt left floor for HD. * Eldon Bermudez MBBS - 08/01/2019 5:34 PM EDT HYPERTENSION/ NEPHROLOGY PROGRESS NOTE PATIENT: Maurice Rudolph : 1960 ID:- 59 year old man with ESRD on HD (T//TUE) at [facility] admitted with Right humeral, scapular, rib [...] wound care ?? Trauma Clinic or Primary Dental Assistant ?? Problem List: - Acute pain - [...] NBO: miralax, pericolace - Last BM: 07/29/19 (CHROMOSOMAL DISORDERS COUNSELOR) ?? RENAL: ESRD Requiring Hemodialysis Nephrology involved [...] exclude potential malignancy. Alternatively, depending on the ykani-fi-yppm, this can potentially be reevaluated on clinically-decided follow- up examination of the intracranial hyperdense foci. []? Incidental Findings Form Completed Sandhya August APRN 08/01/2019 Trauma pager [phone] * Eliot Cohen MD - 08/01/2019 10:40 AM EDT Patient Name: Maurice Rudolph Patient Age: 59 y.o. Birthdate: 1960 Admit date: 07/29/2019 Attending Physician: Eliot Cohen MD Trauma Service - Progress Note Patient Name: Maurice Rudolph : [id number] MR#: [id number] 07/29/2019 Hospital Day 2 days Problem List: [...] wound care ?? Trauma Clinic or Primary Dental Assistant ?? Problem List: - Acute pain - [...] NBO: miralax, pericolace - Last BM: 07/29/19 (CHROMOSOMAL DISORDERS COUNSELOR) ?? RENAL: ESRD Requiring Hemodialysis Nephrology involved [...] exclude potential malignancy. Alternatively, depending on the vkzvp-gz-vwpw, this can potentially be reevaluated on clinically-decided follow- up examination of the intracranial hyperdense foci. []? Incidental Findings Form Completed Sandhya August, FOOTBALL PAD REPAIRER 07/31/2019 Trauma pager [phone] * Vesta Ordonez RN - 07/31/2019 1:21 PM EDT This is resumption of care referral. Patient goes to Hemodialysis to [facility] center in [place], [place] Address: [address] [place] [address], [place] [address] Current schedule: Tuesday,, Tuesday. RS please submit [...] of care per Trauma Service. PLEASE PAGE [phone] WITH QUESTIONS Active Hospital Problems Diagnosis ??? [...] insulin. Neuro check stable, A&Ox4.Received order from FOOTBALL PAD REPAIRER that pt can be off tele for dialysis, order updated. manager corporate strategy called and updated about transfer. * Bibiana Venegas RN - 07/30/2019 8:45 PM EDT [facility] Patient A&O x 4, denies chest [...] is a 59 y.o. male presents to [facility] s/p fall. Description of events leading up to injury includes patient was walking up his stairs at home, lost control, and fell down 12 stairs. He states that the last thing he remembers before losing consciousness is the realization that he is falling. He was worked up with imaging at [facility] prior to transfer here. ?? Primary survey [...] INSERTION performed by Erasmo Bajwa MD at [facility] ? ? PRO REPAIR COMPLEX RETINA DETACH VITRECTOMY & MEMB PEEL 04/03/2012, 04/03/12 REPAIR COMPLEX RETINAL DETACHMENT, W/ VITRECTOMY, MEMBRANE PEELING performed by Matteo Diane MD at [facility] MA[facility] OR ? ? PRO REPAIR COMPLEX RETINA DETACH VITRECTOMY & MEMB PEEL 07/31/2012 REPAIR COMPLEX RETINAL DETACHMENT, W/ VITRECTOMY, MEMBRANE PEELING performed by Matteo Diane MD at [facility] MA[facility] OR ? ? PRO REPAIR COMPLEX RETINA DETACH VITRECTOMY & MEMB PEEL 01/08/2013 REPAIR COMPLEX RETINAL DETACHMENT, W/ VITRECTOMY, MEMBRANE PEELING performed by Matteo Diane MD at [facility] MA[facility] OR ??? PRO TX [...] sensation intact on the right arm. 5/5 director social service strength.2+ radial pulse. Left upper extremity ROM [...] humeral fracture is not included in the [id number]-sc-bhqw. Known right second rib fracture is not visible. There is curvilinear density along the right apical and lateral chest wall that is similar to prior,most likely extrapleural blood. No distended loops of bowel. EKG leads overlie the patient and obscure the dryor-yu-zsps. 1. Small left pleural fluid collection versus [...] exclude potential malignancy. Alternatively, depending on the ezpzt-if-btvn, thiscan potentially be reevaluated on clinically-decided follow-up [...] vessel injury (CTA carotids was performed) Trauma [id number] days with repeat CXR EXTR: Right clavicle fx Right scapula fx Right comminuted humeral head fx Orthopedic Surgery Consulted Non-op intervention -NWB RUE, sling for comfort Right clavicle and elbow films completed Orthopedic Clinic TBD ABRASIONS: Multiple scattered abrasions Local wound care Trauma Clinic or Primary Dental Assistant Injuries identified on Tertiary Survey: 1. No [...] - NBO: miralax, pericolace - Last BM: CHROMOSOMAL DISORDERS COUNSELOR RENAL: ESRD Requiring Hemodialysis Nephrology involved Staying [...] exclude potential malignancy. Alternatively, depending on the lludh-zl-gsqi, this can potentially be reevaluated on clinically-decided follow- up examination of the intracranial hyperdense foci. [] Incidental Findings Form Completed HERVE Oscar 07/30/2019 Trauma pager [phone] Attending Addendum This patient was seen in [...] man with ESRD on TIW HD at [facility] admitted with R humeral, scapular, rib [...] exclude potential malignancy. Alternatively, depending on the vtglx-gf-tmjp, this can potentially be reevaluated on clinically-decided [...] Remainder of care per Trauma PLEASE PAGE [phone] WITH QUESTIONS Active Hospital Problems Diagnosis ??? [...] Maurice Rudolph Level of Activation: Alert MR#: [id number] [x ]Scene Call or [ ]Hospital Transfer : [id number] CC/MECHANISM OF INJURY: 59 y.o. Male s/p fall, on 07/30/2019 HISTORY OF PRESENT ILLNESS: Maurice Rudolph is a 59 y.o. male presents to [facility] s/p fall. Description of events leading up to injury includes patient was walking up his stairs at home, lost control, and fell down 12 stairs. He states that the last thing he remembers before losing consciousness is the realization that he is falling. He was worked up with imaging at [facility] prior to transfer here. Primary survey revealed: [...] INSERTION performed by Erasmo Bajwa MD at [facility] ? ? PRO REPAIR COMPLEX RETINA DETACH VITRECTOMY & MEMB PEEL 04/03/2012, 04/03/12 REPAIR COMPLEX RETINAL DETACHMENT, W/ VITRECTOMY, MEMBRANE PEELING performed by Matteo Diane MD at [facility] MA[facility] OR ? ? PRO REPAIR COMPLEX RETINA DETACH VITRECTOMY & MEMB PEEL 07/31/2012 REPAIR COMPLEX RETINAL DETACHMENT, W/ VITRECTOMY, MEMBRANE PEELING performed by Matteo Diane MD at [facility] OR ? ? PRO REPAIR COMPLEX RETINA DETACH VITRECTOMY & MEMB PEEL 01/08/2013 REPAIR COMPLEX RETINAL DETACHMENT, W/ VITRECTOMY, MEMBRANE PEELING performed by Matteo Diane MD at [facility] OR ??? PRO TX [...] and arm swelling and ecchymosis; 5/5 bilateral director social service strength SPINE: no deformity, no stepoffs, no [...] Antibiotics: None - Diet -n.p.o. - Imaging ciqvxz-j-xam right clavicle, x-ray right elbow ?? Spine [...] at baseline and stable on transport to [facility]. Met by trauma team and ED staff [...] on phone: None Gets together: None Attends scientologist service: None Active member of club or [...] Therapy: 30(TE-Fx 2) Liliana Ortiz PTA Pager: [phone] Physical Therapy Inpatient Rehabilitation Department * Plan [...] fracture (nondisplaced) Social History: Patient lives in [place], [place] with his and son (30 years). Pt's is disabled (wheelchairbound, paralyzed on one side?). Pt is not comfortable with his son assisting with his personal senior care Setup: 2 level home w/ flight of [...] assist him) DME: shower seat, grab bar, kitchen designer, sockaid, shoe horn Baseline ADL/Mobility: Pt was independent w/ ADL's and IADL's (except driving). He uses a kitchen designer, sockaid and shoe horn. 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 VSS. Anticipated d/c tomorrow, will continue to [...] as appropriate/able. Bahman Ham PT, DPT Pager [phone] Inpatient Rehabilitation * Plan of Care - Deandra Hermosillo OTA - 08/02/2019 12:46 PM EDT Pt was off the floor for HD. Will continue to follow. JEOVANNY Lopes Pager [phone] * Plan of Care - Kendra Beckett [...] where he was, thought he was in [place] ?? Unable to come up with town [...] plan as stated. Time IN / OUT: 2917-3082 Total Evaluation Minutes, Physical Therapy: 28(TEF x2) Bahman Ham PT Pager: [phone] Physical Therapy Inpatient Rehabilitation Department * Plan [...] to follow up another time. Catrachita WRIGHT Pager:[phone] Occupational Therapy * Consult Note - Jonatan [...] of ESRD on HD, CAD s/p CABGx3 ([place] 2014), obesity, DM, HTN, CVA (R basal [...] referral as an outpatient Jonatan Elias MD Pipe Organ Mechanic Apprentice PGY-4 08/01/2019 Page [phone] Associated attestation - Matteo Vernon MD - [...] AM EDT Physical Therapy Contact Note 07/31/19 0981 Rehab Evaluation Document Type contact Total Evaluation Minutes, Physical Therapy 0 Evaluation Not Performed Comment Attempted to see pt for physical therapy this AM however pt was off floor at HD. Plan to follow up tomorrow. Maegan Pedroza, PT DPT Pager #[phone] 07/31/2019 Physical Therapy Rehabilitation Department * Plan of Care - Catrachita Castellon OTA - 07/31/2019 8:44 AM EDT Occupational Therapy Note: Attempted to see patient. Pt off of floor at HD. Will follow up another time. Catrachita WRIGHT Pager:[phone] Occupational Therapy * Plan of Care - [...] INSERTION performed by Erasmo Bajwa MD at [facility] ? ? PRO REPAIR COMPLEX RETINA DETACH VITRECTOMY & MEMB PEEL 04/03/2012, 04/03/12 REPAIR COMPLEX RETINAL DETACHMENT, W/ VITRECTOMY, MEMBRANE PEELING performed by Matteo Diane MD at [facility] OR ? ? PRO REPAIR COMPLEX RETINA DETACH VITRECTOMY & MEMB PEEL 07/31/2012 REPAIR COMPLEX RETINAL DETACHMENT, W/ VITRECTOMY, MEMBRANE PEELING performed by Matteo Diane MD at [facility] OR ? ? PRO REPAIR COMPLEX RETINA DETACH VITRECTOMY & MEMB PEEL 01/08/2013 REPAIR COMPLEX RETINAL DETACHMENT, W/ VITRECTOMY, MEMBRANE PEELING performed by Matteo Diane MD at [facility] MA[facility] OR ??? 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 Monitoring - continue BG tid ac & hs Diet - low fat/low carb diet Exercise - weight-bearing exercise 30 min/day, as tolerated Thank you for allowing us to provide care for your patient Narcisa Guy MAGANA Endocrinology Pager [phone] 70 minutes of this 80 minute visit [...] INSERTION performed by Erasmo Bajwa MD at [facility] ? ? PRO REPAIR COMPLEX RETINA DETACH VITRECTOMY & MEMB PEEL 04/03/2012, 04/03/12 REPAIR COMPLEX RETINAL DETACHMENT, W/ VITRECTOMY, MEMBRANE PEELING performed by Matteo Diane MD at [facility] OR ? ? PRO REPAIR COMPLEX RETINA DETACH VITRECTOMY & MEMB PEEL 07/31/2012 REPAIR COMPLEX RETINAL DETACHMENT, W/ VITRECTOMY, MEMBRANE PEELING performed by Matteo Diane MD at [facility] OR ? ? PRO REPAIR COMPLEX RETINA DETACH VITRECTOMY & MEMB PEEL 01/08/2013 REPAIR COMPLEX RETINAL DETACHMENT, W/ VITRECTOMY, MEMBRANE PEELING performed by Matteo Diane MD at [facility] MA[facility] OR ??? PRO TX [...] Dr Bajwa Social History: Patient lives in [place], [place] with his and son (30 years). Pt's is disabled (wheelchairbound, paralyzed on one side?). Pt is not comfortable with his son assisting with his personal senior care Setup: 2 level home w/ flight of [...] assist him) DME: shower seat, grab bar, kitchen designer, sockaid, shoe horn Baseline ADL/Mobility: Pt was independent w/ ADL's and IADL's (except driving). He uses a kitchen designer, sockaid and shoe horn. His son can [...] and measurable assessment of functional outcome. Pager: [phone] ARLEEN YOUNGER OT 07/30/2019 Occupational Therapy Rehabilitation [...] is a 59 y.o. male presents to [facility] s/p fall. Description of events leading up [...] Hospitalizations Within the Past 30 Days: no [facility] admits in last 30 days. Anticipated Length Of Stay (If known): TBD Current Decision-Making Capacity: Patient is A&Ox4 Advance Care Planning: Full Code in CodeStreet. Lists sister Adriana Lopez( ) as the [...] for spouse. Spouse is wc bound. [phone] [facility] [id number] Social & Family Supports/Community Resources: lives with son and spouse. Spouse is wc bound andneeds assistance with ADLs, has home health set up. Son helps as well. Extended Emergency Contact Information Primary Emergency Contact: Kaye Rudolph Relation: Spouse Behavioral Health History: denies Substance Use/Abuse:denies Health/Prescription Coverage: Primary Insurance: MEDICARE Secondary Insurance: N/A Prescription Coverage: Yes Preferred Pharmacy: [id number] [place], [place] - [address] [place] [address] [address] OF [address] [address] Other: none Primary Care Provider: Jarad Keller APRN [phone] Patient/Caregiver Goals of Treatment: return to previous level of function Potential Needs for Transition of Care: Discussed with patient and family levels of rehab includingSNF, swing, acute and VNA home health care also discussed. Discussed need to accept first bed available when patient is medically ready. Rehab/SNF: TBD Home Health: would like VNA, ok with [facility] if indicated DME: has a cane [...] of care planning. Vesta Ordonez, PERNELL Nurse Fisheries Inspector Pager [phone] * Plan of Care - Cynthia Pedroza [...] and right humerus. He was transported to [facility] for further work-up and management. Upon initial [...] ??? Difficult intubation Two attempts (Mac3 and Bajaw 3 successful x 1 attempt. Suggest videolaryngoscope [...] INSERTION performed by Erasmo Bajwa MD at [facility] ? ? PRO REPAIR COMPLEX RETINA DETACH VITRECTOMY & MEMB PEEL 04/03/2012, 04/03/12 REPAIR COMPLEX RETINAL DETACHMENT, W/ VITRECTOMY, MEMBRANE PEELING performed by Matteo Diane MD at [facility] OR ? ? PRO REPAIR COMPLEX RETINA DETACH VITRECTOMY & MEMB PEEL 07/31/2012 REPAIR COMPLEX RETINAL DETACHMENT, W/ VITRECTOMY, MEMBRANE PEELING performed by Matteo Diane MD at [facility] OR ? ? PRO REPAIR COMPLEX RETINA DETACH VITRECTOMY & MEMB PEEL 01/08/2013 REPAIR COMPLEX RETINAL DETACHMENT, W/ VITRECTOMY, MEMBRANE PEELING performed by Matteo Diane MD at [facility] OR ??? PRO TX [...] on phone: None Gets together: None Attends scientologist service: None Active member of club or [...] -Close neurological observation, Q2H Neuro Checks -Imaging: [facility] at 0400 -BP control, keep SBP<160 [...] stairs at his home earlier today in [place] when he had a mechanical fall and went down roughly 14 stairs. He did have loss of consciousness, he did not ambulate after the injury. He was taken to [facility] where he was evaluated and found to have a right minimally displaced greater tuberosity fracture, a right nondisplaced clavicle fracture, and a right nondisplaced scapular fracture along with an intraparenchymal hemorrhage, multiple rib fractures on the right. He was subsequently transferred to [facility] for further evaluation and management. Orthopedics was [...] Employment: On disability since 2011 [facility] MEDICATIONS: ??? levETIRAcetam (Keppra) [...] (5/5) shoulder abduction, elbow flexion/extension, wrist flexion/extension, director social service, EPL,AIN, IO Brisk capillary refill distally 2+ [...] Motor intact (5/5) elbow flexion/extension, wrist flexion/extension, director social service, EPL, AIN, IO Brisk capillary refill distally [...] Antibiotics: None - Diet -n.p.o. - Imaging [id number] right clavicle, x-ray right elbow - Discuss [...] Center 08/29/2019 2:30 PM Ceasar Roy MD [facility] ENDO [facility] 10/12/2019 2:30 PM Harmeet Arvizu MD [facility] OPHT 4B [facility] documented in this encounter Plan of Treatment [...] Glucose, POC 97 65 - 199 mg/dL [facility] Comment: Supplemental ranges: <140 mg/dL before meals <180 mg/dL all other times of the day Blood specimen (specimen) 08/04/2019 12:59 PM EDT 08/04/2019 12:59 PM EDT Eliot Cohen MD POINT OF CARE TEST O RDERABLES [facility] [place] [address] * POCT Glucose (08/04/2019 11:34 AM EDT) Glucose, POC 105 65 - 199 mg/dL [facility] Comment: Supplemental ranges: <140 mg/dL before meals <180 mg/dL all other times of the day Blood specimen (specimen) 08/04/2019 11:34 AM EDT 08/04/2019 11:34 AM EDT Eliot Cohen MD POINT OF CARE TEST O RDERAROSIE [facility] [place] [address] * POCT Glucose (08/04/2019 7:35 AM EDT) Glucose, POC 140 65 - 199 mg/dL [facility] Comment: Supplemental ranges: <140 mg/dL before meals <180 mg/dL all other times of the day Blood specimen (specimen) 08/04/2019 7:35 AM EDT 08/04/2019 7:35 AM EDT Eliot Cohen MD POINT OF CARE TEST O FREDERICKERAROSIE Performing Organization Address City/[facility]/ZIP Co de Phone Number [facility] [place] [address] * POCT Glucose (08/04/2019 3:54 AM EDT) Glucose, POC 125 65 - 199 mg/dL [facility] Comment: Supplemental ranges: <140 mg/dL before meals <180 mg/dL all other times of the day Blood specimen (specimen) 08/04/2019 3:54 AM EDT 08/04/2019 3:54 AM EDT Eliot Cohen MD POINT OF CARE TEST O RDERAROSIE [facility] [place] [address] * POCT Glucose (08/03/2019 11:47 PM EDT) Glucose, POC 135 65 - 199 mg/dL [facility] Comment: Supplemental ranges: <140 mg/dL before meals <180 mg/dL all other times of the day Blood specimen (specimen) 08/03/2019 11:47 PM EDT 08/03/2019 11:47 PM EDT Eliot Cohen MD POINT OF CARE TEST O ANTONETTE [facility] [place] [address] * POCT Glucose (08/03/2019 7:50 PM EDT) Glucose, POC 184 65 - 199 mg/dL [facility] Comment: Supplemental ranges: <140 mg/dL before meals <180 mg/dL all other times of the day Blood specimen (specimen) 08/03/2019 7:50 PM EDT 08/03/2019 7:50 PM EDT Eliot Cohen MD POINT OF CARE TEST O ANTONETTE Performing Organization Address [facility]/ZIP Co de Phone Number [facility] [place] [address] * POCT Glucose (08/03/2019 3:37 PM EDT) Glucose, POC 175 65 - 199 mg/dL [facility] Comment: Supplemental ranges: <140 mg/dL before meals <180 mg/dL all other times of the day Blood specimen (specimen) 08/03/2019 3:37 PM EDT 08/03/2019 3:37 PM EDT Eliot Cohen MD POINT OF CARE TEST O ANTONETTE [facility] [place] [address] * POCT Glucose (08/03/2019 11:46 AM EDT) Glucose, POC 155 65 - 199 mg/dL [facility] Comment: Supplemental ranges: <140 mg/dL before meals <180 mg/dL all other times of the day Blood specimen (specimen) 08/03/2019 11:46 AM EDT 08/03/2019 11:46 AM EDT Eliot Cohen MD POINT OF CARE TEST O RDERAROSIE Performing Organization Address City/[facility] Co de Phone Number [facility] [place] [address] * POCT Glucose (08/03/2019 8:50 AM EDT) [facility] Glucose, POC 156 65 - 199 mg/dL [facility] Comment: Supplemental ranges: <140 mg/dL before meals <180 mg/dL all other times of the day Blood specimen (specimen) 08/03/2019 8:50 AM EDT 08/03/2019 8:50 AM EDT Eliot Cohen MD POINT OF CARE TEST O RDERAROSIE Performing Organization Address [facility] de Phone Number [facility] [place] [address] * (ABNORMAL) Differential, Automated (08/03/2019 7:15 AM EDT) [facility] Neutrophil % 76.7 % [facility] Neutrophil Absolute 4.50 1.70 - 6.10 x10(3)/mc L [facility] Lymph % 8.9 % [facility] Lymphocytes Abs 0.5(L) 0.9 - 3.2 x10(3)/mc L [facility] Monocyte % 10.7 % [facility] Monocyte Abs 0.6 0.3 - 0.9 x10(3)/mc L [facility] Eos % 2.0 % [facility] Eosinophils Abs 0.1 0.0 - 0.4 x10(3)/mc L [facility] Basophil % 0.7 % [facility] Baso Absolute 0.0 0.0 - 0.1 x10(3)/[facility]ORAT[facility] Immature Gran % 1.00 % [facility] Comment: Immature granulocytes(IG's)percentage and absolute count will include metamyelocytes, myelocytes, and promyelocytes. Blood smears from CBCs yielding IG's will be scanned manually for concordance. If this scan disagrees with the automated IG or if promyelocytes are noted, a manual differential will be performed. Immature Gran Absolute 0.06(H) 0.00 - 0.04 x10(3)/[facility] Blood specimen (specimen) 08/03/2019 7:15 AM EDT 08/03/2019 7:24 AM EDT Narrative Resulting Agency Comment Spec In Lab Sandhya August APRN HEMATOLOGY JAY BEVERLY Performing Organization Address City/State/[facility] Co de Phone Number [facility] [place] [address] * (ABNORMAL) Hemogram (08/03/2019 7:15 AM EDT) White Blood Cell 5.9 4.0 - 9.5 x10(3)/[facility]AT[facility] Red Blood Cell 3.01(L) 4.58 - 5.54 x10(6)/[facility] Hemoglobin 9.6(L) 13.7 - 16.5 gm/dL [facility] Hematocrit 29.8(L) 40.5 - 48.5 % [facility] Mean Cell Volume 99.0(H) 82.9 - 93.1 fL [facility] Mean Cell Hemoglobin 31.9 27.5 - 32.1 pg [facility] Mean Cell Hemoglobin Concentration 32.2 32.0 - 35.7 gm/dL [facility] Platelet 153 145 - 357 x10(3)/[facility]ORAT[facility] RDW Standard Deviation 53.1(H) 36.0 - 45.0 fL [facility] RDW coefficient of variation 14.9(H) 11.4 - 13.8 % [facility] Mean Platelet Volume 9.8 7.6 - 12.9 fL [facility] NRBC% auto 0.0 % [facility] NRBC Absolute 0.000 0.000 - 0.000 x10(3)/mc L [facility] Blood specimen (specimen) 08/03/2019 7:15 AM EDT 08/03/2019 7:24 AM EDT Narrative Resulting Agency Comment Spec In Lab Sandhya August APRN HEMATOLOGY JAY BEVERLY [facility] [place] [address] * (ABNORMAL) Comprehensive metabolic panel (non-fasting) (08/03/2019 7:15 AM EDT) Glucose 140 65 - 199 mg/dL [facility] Comment:Diabetes: >=200 mg/d L plus symptoms Blood Urea Nitrogen 43(H) 10 - 20 mg/dL [facility] Creatinine 5.44(H) 0.80 - 1.50 mg/dL [facility] Sodium 132(L) 135 - 145 mmol/L [facility] Potassium 4.3 3.5 - 5.0 mmol/L [facility] Comment: Please note: ??Patients with WBC >100,000 may have falsely elevated Potassium levels. ??For accurate Potassium quantification in these patients send serum separator tube (gold top) for subsequent determinations. ??Contact the Clinical Chemistry Laboratory if there are any questions. Chloride 89(L) 98 - 107 mmol/L [facility] Carbon Dioxide 27 22 - 31 mmol/L [facility] Anion Gap 16(H) 5 - 15 mmol/L [facility] Calcium 8.9 8.5 - 10.5 mg/dL [facility] Protein, Total 8.3(H) 6.1 - 8.0 gm/dL [facility] Albumin 3.7 3.2 - 5.2 gm/dL [facility] Aspartate Aminotransferase 21 0 - 39 unit/L [facility] Alanine Aminotransferase 20 0 - 55 unit/L [facility] Alkaline Phosphatase 96 40 - 130 unit/L [facility] Bilirubin, Total 0.5 0.2 - 1.3 mg/dL [facility] Est Glomerular Filtration Rate 11(L) >=60 mL/min/1. 73 m?? [facility] Comment: The eGFR was calculated using the CKD-EPI equation. As with all creatinine based estimates of kidney function, eGFR values calculated with the CKD-EPI equation are not accurate in patients with acute kidney failure, extremes of body mass or the acutely ill. http://[employer]/[facility]nkf eGFR 12(L) >=60 mL/min/1. 73 m?? [facility] Comment: The eGFR was calculated using the CKD-EPI equation. As with all creatinine based estimates of kidney function, eGFR values calculated with the CKD-EPI equation are not accurate in patients with acute kidney failure, extremes of body mass or the acutely ill. http://[employer]/[facility]nkf Blood specimen (specimen) 08/03/2019 7:15 AM EDT 08/03/2019 7:24 AM EDT Narrative Resulting Agency Comment Spec In Lab Sandhya August FOOTBALL PAD REPAIRER CHEMISTRY ORDER ROBBIE [facility] [place] [address] * Ammonia (08/03/2019 7:14 AM EDT) Ammonia 16 16 - 60 mcmol/L [facility] Blood specimen (specimen) 08/03/2019 7:14 AM EDT 08/03/2019 7:21 AM EDT Narrative Resulting Agency Comment Spec In Lab Sandhya August FOOTBALL PAD REPAIRER CHEMISTRY ORDER ROBBIE Performing Organization Address City/[facility]/ZIP Co de Phone Number [facility] [place] [address] * POCT Glucose (08/03/2019 4:58 AM EDT) Glucose, POC 156 65 - 199 mg/dL [facility] Comment: Supplemental ranges: <140 mg/dL before meals <180 mg/dL all other times of the day Blood specimen (specimen) 08/03/2019 4:58 AM EDT 08/03/2019 4:58 AM EDT Eliot Cohen MD POINT OF CARE TEST O ANTONETTE Performing Organization Address City/[facility]/ZIP Co de Phone Number [facility] [place] [address] * POCT Glucose (08/02/2019 11:32 PM EDT) Glucose, POC 139 65 - 199 mg/dL [facility] Comment: Supplemental ranges: <140 mg/dL before meals <180 mg/dL all other times of the day Blood specimen (specimen) 08/02/2019 11:32 PM EDT 08/02/2019 11:32 PM EDT Eliot Cohen MD POINT OF CARE TEST O ANTONETTE Performing Organization Address City/[facility]/ZIP Co de Phone Number [facility] [place] [address] * POCT Glucose (08/02/2019 7:36 PM EDT) Glucose, POC 150 65 - 199 mg/dL [facility] Comment: Supplemental ranges: <140 mg/dL before meals <180 mg/dL all other times of the day Blood specimen (specimen) 08/02/2019 7:36 PM EDT 08/02/2019 7:36 PM EDT Eliot Cohen MD POINT OF CARE TEST O RDERABLES Performing Organization Address [facility] de Phone Number [facility] [place] [address] * POCT Glucose (08/02/2019 4:02 PM EDT) Glucose, POC 183 65 - 199 mg/dL [facility] Comment: Supplemental ranges: <140 mg/dL before meals <180 mg/dL all other times of the day Blood specimen (specimen) 08/02/2019 4:02 PM EDT 08/02/2019 4:02 PM EDT Eliot Cohen MD POINT OF CARE TEST O RDERAROSIE Performing Organization Address [facility] de Phone Number [facility] [place] [address] * POCT Glucose (08/02/2019 1:22 PM EDT) Glucose, POC 161 65 - 199 mg/dL [facility] Comment: Supplemental ranges: <140 mg/dL before meals <180 mg/dL all other times of the day Blood specimen (specimen) 08/02/2019 1:22 PM EDT 08/02/2019 1:22 PM EDT Eliot Cohen MD POINT OF CARE TEST O RDERABLES Performing Organization Address [facility] de Phone Number [facility] [place] [address] * (ABNORMAL) CMP w/fasting Glucose (08/02/2019 6:42 AM EDT) Glucose Fasting 156(H) 65 - 99 mg/dL [facility] Comment: ?Fasting* Glucose Interpretive Criteria [...] of Diabetes Mellitus, Position Statement from the [place] [employer]. ??Diabetes Care, Volume 33, Supplement 1, May 2009 Blood Urea Nitrogen 50(H) 10 - 20 mg/dL [facility] Creatinine 7.35(H) 0.80 - 1.50 mg/dL [facility] Comment:result rechecked-ms Sodium 130(L) 135 - 145 mmol/L [facility] Potassium 4.7 3.5 - 5.0 mmol/L [facility] Comment: Please note: ??Patients with WBC >100,000 may have falsely elevated Potassium levels. ??For accurate Potassium quantification in these patients send serum separator tube (gold top) for subsequent determinations. ??Contact the Clinical Chemistry Laboratory if there are any questions. Chloride 88(L) 98 - 107 mmol/L [facility] Carbon Dioxide 26 22 - 31 mmol/L [facility] Anion Gap 16(H) 5 - 15 mmol/L [facility] Calcium 8.6 8.5 - 10.5 mg/dL [facility] Protein, Total 7.6 6.1 - 8.0 gm/dL [facility] Albumin 3.6 3.2 - 5.2 gm/dL [facility] Aspartate Aminotransferase 22 0 - 39 unit/L [facility] Alanine Aminotransferase 22 0 - 55 unit/L [facility] Alkaline Phosphatase 86 40 - 130 unit/L [facility] Bilirubin, Total 0.6 0.2 - 1.3 mg/dL [facility] Est Glomerular Filtration Rate 7(L) >=60 mL/min/1. 73 m?? [facility] Comment: The eGFR was calculated using the CKD-EPI equation. As with all creatinine based estimates of kidney function, eGFR values calculated with the CKD-EPI equation are not accurate in patients with acute kidney failure, extremes of body mass or the acutely ill. [email or web address] eGFR 8(L) >=60 mL/min/1. 73 m?? [facility] Comment: The eGFR was calculated using the CKD-EPI equation. As with all creatinine based estimates of kidney function, eGFR values calculated with the CKD-EPI equation are not accurate in patients with acute kidney failure, extremes of body mass or the acutely ill. [email or web address] Blood specimen (specimen) 08/02/2019 6:42 AM EDT 08/02/2019 6:48 AM EDT Narrative Resulting Agency Comment Spec In Lab Sandhya August APRN CHEMISTRY ORDER ROBBIE Performing Organization Address [facility] Co de Phone Number [facility] [place] [address] * POCT Glucose (08/02/2019 6:33 AM EDT) Glucose, POC 155 65 - 199 mg/dL [facility] Comment: Supplemental ranges: <140 mg/dL before meals <180 mg/dL all other times of the day Blood specimen (specimen) 08/02/2019 6:33 AM EDT 08/02/2019 6:33 AM EDT Eliot Cohen MD POINT OF CARE TEST O RDERABLES Performing Organization Address City/[facility]/ZIP Co de Phone Number [facility] [place] [address] * POCT Glucose (08/02/2019 4:16 AM EDT) Glucose, POC 132 65 - 199 mg/dL [facility] Comment: Supplemental ranges: <140 mg/dL before meals <180 mg/dL all other times of the day Blood specimen (specimen) 08/02/2019 4:16 AM EDT 08/02/2019 4:16 AM EDT Eliot Cohen MD POINT OF CARE TEST O RDERABLES [facility] [place] [address] * POCT Glucose (08/01/2019 11:57 PM EDT) Glucose, POC 181 65 - 199 mg/dL [facility] Comment: Supplemental ranges: <140 mg/dL before meals <180 mg/dL all other times of the day Blood specimen (specimen) 08/01/2019 11:57 PM EDT 08/01/2019 11:57 PM EDT Eliot Cohen MD POINT OF CARE TEST O RDERABLES Performing Organization Address City/[facility]/ZIP Co de Phone Number [facility] [place] [address] * POCT Glucose (08/01/2019 7:18 PM EDT) Glucose, POC 183 65 - 199 mg/dL [facility] Comment: Supplemental ranges: <140 mg/dL before meals <180 mg/dL all other times of the day Blood specimen (specimen) 08/01/2019 7:18 PM EDT 08/01/2019 7:18 PM EDT Eliot Cohen MD POINT OF CARE TEST O RDERABLES [facility] [place] [address] * (ABNORMAL) POCT Glucose (08/01/2019 4:21 PM EDT) Glucose, POC 224(H) 65 - 199 mg/dL [facility] Comment: Supplemental ranges: <140 mg/dL before meals <180 mg/dL all other times of the day Blood specimen (specimen) 08/01/2019 4:21 PM EDT 08/01/2019 4:21 PM EDT Eliot Cohen MD POINT OF CARE TEST O RDERABLES Performing Organization Address City/[facility]/ZIP Co de Phone Number [facility] [place] [address] * (ABNORMAL) POCT Glucose (08/01/2019 12:32 PM EDT) Glucose, POC 204(H) 65 - 199 mg/dL [facility] Comment: Supplemental ranges: <140 mg/dL before meals <180 mg/dL all other times of the day Blood specimen (specimen) 08/01/2019 12:32 PM EDT 08/01/2019 12:32 PM EDT Eliot Cohen MD POINT OF CARE TEST O RDERABLES Performing Organization Address [facility] Co de Phone Number [facility] [place] [address] * POCT Glucose (08/01/2019 8:22 AM EDT) Glucose, POC 188 65 - 199 mg/dL [facility] Comment: Supplemental ranges: <140 mg/dL before meals <180 mg/dL all other times of the day Blood specimen (specimen) 08/01/2019 8:22 AM EDT 08/01/2019 8:22 AM EDT Eliot Cohen MD POINT OF CARE TEST O RDERABLES Performing Organization Address City/[facility]/ZIP Co de Phone Number [facility] [place] [address] * (ABNORMAL) Differential, Automated (08/01/2019 6:25 AM EDT) Neutrophil % 79.8 % [facility] Neutrophil Absolute 6.35(H) 1.70 - 6.10 x10(3)/mc L [facility] Lymph % 7.2 % [facility] Lymphocytes Abs 0.6(L) 0.9 - 3.2 x10(3)/mc L [facility] Monocyte % 9.8 % [facility] Monocyte Abs 0.8 0.3 - 0.9 x10(3)/[facility] Eos % 2.0 % [facility] Eosinophils Abs 0.2 0.0 - 0.4 x10(3)/[facility] Basophil % 0.6 % [facility] Baso Absolute 0.0 0.0 - 0.1 x10(3)/[facility] Immature Gran % 0.60 % [facility] Comment: Immature granulocytes(IG's)percentage and absolute count will include metamyelocytes, myelocytes, and promyelocytes. Blood smears from CBCs yielding IG's will be scanned manually for concordance. If this scan disagrees with the automated IG or if promyelocytes are noted, a manual differential will be performed. Immature Gran Absolute 0.05(H) 0.00 - 0.04 x10(3)/[facility] Blood specimen (specimen) 08/01/2019 6:25 AM EDT 08/01/2019 6:32 AM EDT Narrative Resulting Agency Comment Spec In Lab Sandhya August APRN HEMATOLOGY ORDE RUSH [facility] [place] [address] * (ABNORMAL) Hemogram (08/01/2019 6:25 AM EDT) White Blood Cell 8.0 4.0 - 9.5 x10(3)/[facility] Red Blood Cell 2.85(L) 4.58 - 5.54 x10(6)/[facility] Hemoglobin 9.1(L) 13.7 - 16.5 gm/dL [facility] Hematocrit 28.2(L) 40.5 - 48.5 % [facility] Mean Cell Volume 98.9(H) 82.9 - 93.1 fL [facility] Mean Cell Hemoglobin 31.9 27.5 - 32.1 pg [facility] Mean Cell Hemoglobin Concentration 32.3 32.0 - 35.7 gm/dL [facility] Platelet 128(L) 145 - 357 x10(3)/mc L [facility] RDW Standard Deviation 52.0(H) 36.0 - 45.0 fL [facility] RDW coefficient of variation 14.5(H) 11.4 - 13.8 % [facility] Mean Platelet Volume 10.1 7.6 - 12.9 fL [facility] NRBC% auto 0.0 % [facility] NRBC Absolute 0.000 0.000 - 0.000 x10(3)/mc L [facility] Blood specimen (specimen) 08/01/2019 6:25 AM EDT 08/01/2019 6:32 AM EDT Narrative Resulting Agency Comment Spec In Lab Sandhya August APRN HEMATOLOGY JAY BEVERLY [facility] [place] [address] * (ABNORMAL) Troponin (08/01/2019 6:25 AM EDT) Troponin-T 0.12(H) 0.00 - 0.00 ng/mL [facility] Comment: The 99th percentile for Troponin T is less than 0.01 ng/mL, any detectable cTnT concentration using this assay should be considered elevated. According to the third universal definition of myocardial infarction the following criteria with a clinical presentation consistent with acute myocardial ischemia meets the diagnosis for a myocardial infarction ([place]). Detection of a rise and/or fall of cTnT, with at least one value greater than the 99th percentile (> or = 0.01) and with at least one of the following ?? Symptoms of ischemia ?? New or presumed new significant XR-[id number]-E wave (ST-T) changes or new left bundle [...] additional sample may be indicated. Reference: Third Leonard Definition of Myocardial Infarction. Journal of the [place] [employer] 2012;60:1581-98 Blood specimen (specimen) 08/01/2019 6:25 AM EDT 08/01/2019 6:32 AM EDT Narrative Resulting Agency Comment Spec In Lab Sandhya August FOOTB[employer] P[employer] REPAIRER CHEMISTRY ORDER ROBBIE [facility] [place] [address] * (ABNORMAL) Comprehensive metabolic panel (non-fasting) (08/01/2019 6:25 AM EDT) Glucose 180 65 - 199 mg/dL [facility] Comment:Diabetes: >=200 mg/d L plus symptoms Blood Urea Nitrogen 33(H) 10 - 20 mg/dL [facility] Creatinine 5.44(H) 0.80 - 1.50 mg/dL [facility] Sodium 130(L) 135 - 145 mmol/L [facility] Potassium 5.0 3.5 - 5.0 mmol/L [facility] Comment: Please note: ??Patients with WBC >100,000 may have falsely elevated Potassium levels. ??For accurate Potassium quantification in these patients send serum separator tube (gold top) for subsequent determinations. ??Contact the Clinical Chemistry Laboratory if there are any questions. Chloride 91(L) 98 - 107 mmol/L [facility] Carbon Dioxide 25 22 - 31 mmol/L [facility] Anion Gap 14 5 - 15 mmol/L [facility] Calcium 8.5 8.5 - 10.5 mg/dL [facility] Protein, Total 7.4 6.1 - 8.0 gm/dL [facility] Albumin 3.4 3.2 - 5.2 gm/dL [facility] Aspartate Aminotransferase 29 0 - 39 unit/L [facility] Alanine Aminotransferase 23 0 - 55 unit/L [facility] Alkaline Phosphatase 87 40 - 130 unit/L [facility] Bilirubin, Total 0.5 0.2 - 1.3 mg/dL [facility] Est Glomerular Filtration Rate 11(L) >=60 mL/min/1. 73 m?? [facility] Comment: The eGFR was calculated using the CKD-EPI equation. As with all creatinine based estimates of kidney function, eGFR values calculated with the CKD-EPI equation are not accurate in patients with acute kidney failure, extremes of body mass or the acutely ill. [email or web address]/[email or web address]nkf eGFR 12(L) >=60 mL/min/1. 73 m?? [facility] Comment: The eGFR was calculated using the CKD-EPI equation. As with all creatinine based estimates of kidney function, eGFR values calculated with the CKD-EPI equation are not accurate in patients with acute kidney failure, extremes of body mass or the acutely ill. [email or web address] Blood specimen (specimen) 08/01/2019 6:25 AM EDT 08/01/2019 6:32 AM EDT Narrative Resulting Agency Comment Spec In Lab Sandhya August APRN CHEMISTRY ORDER ROBBIE [facility] [place] [address] * POCT Glucose (08/01/2019 3:43 AM EDT) Glucose, POC 130 65 - 199 mg/dL [facility] Comment: Supplemental ranges: <140 mg/dL before meals <180 mg/dL all other times of the day Blood specimen (specimen) 08/01/2019 3:43 AM EDT 08/01/2019 3:43 AM EDT Eliot Cohen MD POINT OF CARE TEST O RDERABLES [facility] [place] [address] * POCT Glucose (07/31/2019 11:33 PM EDT) Glucose, POC 175 65 - 199 mg/dL [facility] Comment: Supplemental ranges: <140 mg/dL before meals <180 mg/dL all other times of the day Blood specimen (specimen) 07/31/2019 11:33 PM EDT 07/31/2019 11:33 PM EDT Eliot Cohen MD POINT OF CARE TEST O RDERAROSIE Performing Organization Address City/[facility]/ZIP Co de Phone Number [facility] [place] [address] * POCT Glucose (07/31/2019 7:54 PM EDT) Glucose, POC 178 65 - 199 mg/dL [facility] Comment: Supplemental ranges: <140 mg/dL before meals <180 mg/dL all other times of the day Blood specimen (specimen) 07/31/2019 7:54 PM EDT 07/31/2019 7:54 PM EDT Eliot Cohen MD POINT OF CARE TEST O FREDERICKERAROSIE Performing Organization Address City/[facility]/ZIP Co de Phone Number [facility] [place] [address] * POCT Glucose (07/31/2019 4:04 PM EDT) Glucose, POC 166 65 - 199 mg/dL [facility] Comment: Supplemental ranges: <140 mg/dL before meals <180 mg/dL all other times of the day Blood specimen (specimen) 07/31/2019 4:04 PM EDT 07/31/2019 4:04 PM EDT Eliot Cohen MD POINT OF CARE TEST O RDERABLES Performing Organization Address [facility]/ZIP Co de Phone Number [facility] [place] [address] * (ABNORMAL) Troponin (07/31/2019 3:30 PM EDT) [facility] Troponin-T 0.10(H) 0.00 - 0.00 ng/mL [facility] Comment: The 99th percentile for Troponin T is less than 0.01 ng/mL, any detectable cTnT concentration using this assay should be considered elevated. According to the third universal definition of myocardial infarction the following criteria with a clinical presentation consistent with acute myocardial ischemia meets the diagnosis for a myocardial infarction ([place]). Detection of a rise and/or fall of cTnT, with at least one value greater than the 99th percentile (> or = 0.01) and with at least one of the following ?? Symptoms of ischemia ?? New or presumed new significant VW-pzysyyd-D wave (ST-T) changes or new left bundle [...] additional sample may be indicated. Reference: Third Leonard Definition of Myocardial Infarction. Journal of the [place] [employer] 2012;60:1581-98 Blood specimen (specimen) 07/31/2019 3:30 PM EDT 07/31/2019 3:44 PM EDT Narrative Resulting Agency Comment Spec In Lab Sandhya August FO[employer]BALL P[employer] REPAIRER CHEMISTRY ORDER ROBBIE Performing Organization Address [facility]/ZIP Co de Phone Number [facility] [place] [address] * EKG 12 Lead (07/31/2019 3:10 PM EDT) Ventricular rate 113 BPM MUSE SYSTEM Atrial Rate 113 BPM MUSE SYSTEM P-R Interval 184 ms MUSE SYSTEM QRS Duration 96 ms MUSE SYSTEM Q-T Interval 320 ms MUSE SYSTEM QTC Calculated (Bezet) 438 ms MUSE SYSTEM Calculated P [place] 63 degrees MUSE SYSTEM Calculated R [place] 57 degrees MUSE SYSTEM Calculated T [place] 28 degrees MUSE SYSTEM INTERPRETATION Sinus tachycardia with frequent Premature ventricular complexes Abnormal ECG When compared with ECG of 31-JUL-2019 05:49, Fusion complexes are no longer Present Confirmed by MD JOANNA, PENNY ([id number]) on 08/01/2019 8:38:22 AM MUSE SYSTEM 07/31/2019 3:10 PM EDT 08/01/2019 8:38 AM EDT Sandhya Morro August [employer] P[employer] REPAIRER ECG ORDERABLES MUSE SYSTEM * ECHO COMPLETE W CONTRAST (07/31/2019 2:25 PM EDT) EF 60 [facility]ART[facility] SYSTEM Anatomical Region Laterality Modality Other 07/31/2019 Narrative 07/31/2019 3:10 PM EDT Procedure: ?Transthoracic Echocardiogram Patient: ?RONNI DELONG A ?(Age): 1960(59y) Med Rec#: ? [id number] ?Sex: ?M ? [facility] Loc[facility] ? [facility] ?Ht / Wt: ??162(cm)/103(kg) Pt. Loc: ?Adult Floor ? BSA: ?2.06 Study Date: ?? 07/31/2019 ?Pt. Type: Inpatient Tape: ? Referring: Aaron Dover Referring: YANELI Reading: Dev Hernandez ??([id number]) [employer] Crm Developer: Heredia, Efraín Diagnosis: *Unspecified fall, initial encounter [...] ? Mid-Inferior ?Normal ? Mid-Inferoseptal ?Normal ? [place]-Septal ? Normal ? [place]-Anterior ? Normal ? [place]-Lateral ?Normal ? [place]-Inferior ? Normal ? [place]-Tip ?Normal ? This report has been electronically signed by: Dev Hernandez MD ? 07/31/2019 15:10:05 Images reviewed and interpretation verified [facility] Procedure Note Dev Hernandez MD - 07/31/2019 Procedure: Transthoracic Echocardiogram Patient: RONNI Gurrola (Age): 1960(59y) Med Rec#: [id number] Sex: M Site Loc: [facility] Ht / Wt: 162(cm)/103(kg) Pt. Loc: Adult Floor BSA: 2.06 Study Date: 07/31/2019 Pt. Type: Inpatient Tape: Referring: Aaron Dover Referring: YANELI Reading: Dev Hernandez ([id number]) [employer] C[employer] Developer: Efraín Heredia Diagnosis: *Unspecified fall, initial encounter [...] Normal Mid-Posterolateral Normal Mid-Inferior Normal Mid-Inferoseptal Normal [place]-Septal Normal [place]-Anterior Normal [place]-Lateral Normal [place]-Inferior Normal [place]-Tip Normal This report has been electronically signed by: Dev Hernandez MD 07/31/2019 15:10:05 Images reviewed and interpretation verified [facility] Aaron Dover MD ECHO ORDERABLES * POCT Glucose (07/31/2019 1:13 PM EDT) Glucose, POC 122 65 - 199 mg/dL [facility] Comment: Supplemental ranges: <140 mg/dL before meals <180 mg/dL all other times of the day Blood specimen (specimen) 07/31/2019 1:13 PM EDT 07/31/2019 1:13 PM EDT Eliot Cohen MD POINT OF CARE TEST O RDERABLES [facility] [place] [address] * POCT Glucose (07/31/2019 7:44 AM EDT) [facility] Glucose, POC 148 65 - 199 mg/dL [facility] Comment: Supplemental ranges: <140 mg/dL before meals <180 mg/dL all other times of the day Blood specimen (specimen) 07/31/2019 7:44 AM EDT 07/31/2019 7:44 AM EDT Eliot Cohen MD POINT OF CARE TEST O RDERABLES Performing Organization Address City/[facility]/ZIP Co de Phone Number [facility] [place] [id number] * EKG 12 Lead (07/31/2019 5:49 AM EDT) [facility] Ventricular rate 108 BPM MUSE SYSTEM Atrial Rate 108 BPM MUSE SYSTEM P-R Interval 192 ms MUSE SYSTEM QRS Duration 98 ms MUSE SYSTEM Q-T Interval 336 ms MUSE SYSTEM QTC Calculated (Bezet) 450 ms MUSE SYSTEM Calculated P [place] 58 degrees MUSE SYSTEM Calculated R [place] 51 degrees MUSE SYSTEM Calculated T [place] 5 degrees MUSE SYSTEM INTERPRETATION Sinus tachycardia Occasional Premature ventricular complexes and Fusion complexes Cannot rule out Inferior infarct (cited on or before 30-JUL-2019) Poor R-wave progression Abnormal ECG When compared with ECG of 30-JUL-2019 08:59, Fusion complexes are now Present Confirmed by MD David, Dev Barcenas ([id number]) on 07/31/2019 7:59:11 AM MUSE SYSTEM 07/31/2019 5:49 AM EDT 07/31/2019 7:59 AM EDT Eliot Cohen MD ECG ORDERABLES Performing Organization Address City/[facility]/ZIP Co de Phone Number MUSE SYSTEM * (ABNORMAL) Differential, Automated (07/31/2019 4:20 AM EDT) Pathologist [facility] Neutrophil % 71.2 % [facility] Neutrophil Absolute 5.20 1.70 - 6.10 x10(3)/mc L [facility] Lymph % 12.7 % [facility] Lymphocytes Abs 0.9 0.9 - 3.2 x10(3)/ L [facility] Monocyte % 8.5 % [facility] Monocyte Abs 0.6 0.3 - 0.9 x10(3)/[facility] Eos % 6.4 % [facility] Eosinophils Abs 0.5(H) 0.0 - 0.4 x10(3)/[facility] Basophil % 0.4 % [facility] Baso Absolute 0.0 0.0 - 0.1 x10(3)/[facility] Immature Gran % 0.80 % [facility] Comment: Immature granulocytes(IG's)percentage and absolute count will include metamyelocytes, myelocytes, and promyelocytes. Blood smears from CBCs yielding IG's will be scanned manually for concordance. If this scan disagrees with the automated IG or if promyelocytes are noted, a manual differential will be performed. Immature Gran Absolute 0.06(H) 0.00 - 0.04 x10(3)/[facility] Blood specimen (specimen) 07/31/2019 4:20 AM EDT 07/31/2019 4:35 AM EDT Narrative Resulting Agency Comment Spec In Lab Chantale EDGAR HEMATOLOGY ORDERABLE S Performing Organization Address City/State/[facility] Co de Phone Number [facility] [place] [address] * (ABNORMAL) Hemogram (07/31/2019 4:20 AM EDT) [facility] Blood Cell 7.3 4.0 - 9.5 x10(3)/[facility] LABORATORY Red Blood Cell 2.95(L) 4.58 - 5.54 x10(6)/[facility] LABORATORY Hemoglobin 9.2(L) 13.7 - 16.5 gm/dL [facility] Hematocrit 28.6(L) 40.5 - 48.5 % [facility] Mean Cell Volume 96.9(H) 82.9 - 93.1 fL [facility] Mean Cell Hemoglobin 31.2 27.5 - 32.1 pg [facility] Mean Cell Hemoglobin Concentration 32.2 32.0 - 35.7 gm/dL [facility] Platelet 128(L) 145 - 357 x10(3)/mc L [facility] RDW Standard Deviation 49.7(H) 36.0 - 45.0 fL [facility] RDW coefficient of variation 14.5(H) 11.4 - 13.8 % [facility] Mean Platelet Volume 10.7 7.6 - 12.9 fL [facility] NRBC% auto 0.0 % [facility] NRBC Absolute 0.000 0.000 - 0.000 x10(3)/mc L [facility] Blood specimen (specimen) 07/31/2019 4:20 AM EDT 07/31/2019 4:35 AM EDT Narrative Resulting Agency Comment Spec In Lab Chantale EDGAR HEMATOLOGY ORDERABLE S Performing Organization Address City/State/[facility] Co de Phone Number [facility] [place] [address] * (ABNORMAL) Troponin (07/31/2019 4:20 AM EDT) Troponin-T 0.09(H) 0.00 - 0.00 ng/mL [facility] Comment: The 99th percentile for Troponin T is less than 0.01 ng/mL, any detectable cTnT concentration using this assay should be considered elevated. According to the third universal definition of myocardial infarction the following criteria with a clinical presentation consistent with acute myocardial ischemia meets the diagnosis for a myocardial infarction ([place]). Detection of a rise and/or fall of cTnT, with at least one value greater than the 99th percentile (> or = 0.01) and with at least one of the following ?? Symptoms of ischemia ?? New or presumed new significant VS-euqmpde-I wave (ST-T) changes or new left bundle [...] additional sample may be indicated. Reference: Third Leonard Definition of Myocardial Infarction. Journal of the [employer] 2012;60:1581-98 Blood specimen (specimen) 07/31/2019 4:20 AM EDT 07/31/2019 4:35 AM EDT Narrative Resulting Agency Comment Spec In Lab Aaron Dover MD CHEMISTRY ORDERABLES Performing Organization Address [facility]/ZIP Co de Phone Number [facility] [place] [address] * Magnesium (07/31/2019 4:20 AM EDT) Pathologist [facility] Magnesium 0.92 0.69 - 1.07 mmol/L [facility] Blood specimen (specimen) 07/31/2019 4:20 AM EDT 07/31/2019 4:35 AM EDT Narrative Resulting Agency Comment Spec In Lab Aaron Dover MD CHEMISTRY ORDERABLES Performing Organization Address [facility] Co de Phone Number [facility] [place] [address] * (ABNORMAL) Basic Metabolic Panel (non-fasting) (07/31/2019 4:20 AM EDT) Glucose 110 65 - 199 mg/dL [facility] Comment:Diabetes: >=200 mg/d L plus symptoms Blood Urea Nitrogen 48(H) 10 - 20 mg/dL [facility] Creatinine 6.13(H) 0.80 - 1.50 mg/dL [facility] Comment:result rechecked-[facility] Sodium 133(L) 135 - 145 mmol/L [facility] Potassium 4.4 3.5 - 5.0 mmol/L [facility] Comment: Please note: ??Patients with WBC >100,000 may have falsely elevated Potassium levels. ??For accurate Potassium quantification in these patients send serum separator tube (gold top) for subsequent determinations. ??Contact the Clinical Chemistry Laboratory if there are any questions. Chloride 92(L) 98 - 107 mmol/L [facility] Carbon Dioxide 27 22 - 31 mmol/L [facility] Anion Gap 14 5 - 15 mmol/L [facility] Calcium 8.5 8.5 - 10.5 mg/dL [facility] Est Glomerular Filtration Rate 9(L) >=60 mL/min/1. 73 m?? [facility] Comment: The eGFR was calculated using the CKD-EPI equation. As with all creatinine based estimates of kidney function, eGFR values calculated with the CKD-EPI equation are not accurate in patients with acute kidney failure, extremes of body mass or the acutely ill. http://Lent[employer]/[facility] eGFR 11(L) >=60 mL/min/1. 73 m?? [facility] Comment: The eGFR was calculated using the CKD-EPI equation. As with all creatinine based estimates of kidney function, eGFR values calculated with the CKD-EPI equation are not accurate in patients with acute kidney failure, extremes of body mass or the acutely ill. http://Lentigen/[facility] Blood specimen (specimen) 07/31/2019 4:20 AM EDT 07/31/2019 4:35 AM EDT Narrative Resulting Agency Comment Spec In Lab Aaron Dover MD CHEMISTRY ORDERABLES [facility] [place] [address] * POCT Glucose (07/31/2019 4:08 AM EDT) Glucose, POC 129 65 - 199 mg/dL [facility] Comment: Supplemental ranges: <140 mg/dL before meals <180 mg/dL all other times of the day Blood specimen (specimen) 07/31/2019 4:08 AM EDT 07/31/2019 4:08 AM EDT Eliot Cohen MD POINT OF CARE TEST O RDERABLES [facility] [place] [address] * POCT Glucose (07/30/2019 10:52 PM EDT) Glucose, POC 140 65 - 199 mg/dL [facility] Comment: Supplemental ranges: <140 mg/dL before meals <180 mg/dL all other times of the day Blood specimen (specimen) 07/30/2019 10:52 PM EDT 07/30/2019 10:52 PM EDT Eliot Cohen MD POINT OF CARE TEST O RDERAROSIE Performing Organization Address [facility]/ZIP Co de Phone Number [facility] [place] [address] * (ABNORMAL) POCT Glucose (07/30/2019 7:29 PM EDT) Glucose, POC 217(H) 65 - 199 mg/dL [facility] Comment: Supplemental ranges: <140 mg/dL before meals <180 mg/dL all other times of the day Blood specimen (specimen) 07/30/2019 7:29 PM EDT 07/30/2019 7:29 PM EDT Aaron Dover MD POINT OF CARE TEST O RDERABLES Performing Organization Address City/[facility]/ZIP Co de Phone Number [facility] [place] [address] * (ABNORMAL) Troponin (07/30/2019 6:10 PM EDT) Troponin-T 0.08(H) 0.00 - 0.00 ng/mL [facility] Comment: The 99th percentile for Troponin T is less than 0.01 ng/mL, any detectable cTnT concentration using this assay should be considered elevated. According to the third universal definition of myocardial infarction the following criteria with a clinical presentation consistent with acute myocardial ischemia meets the diagnosis for a myocardial infarction ([place]). Detection of a rise and/or fall of cTnT, with at least one value greater than the 99th percentile (> or = 0.01) and with at least one of the following ?? Symptoms of ischemia ?? New or presumed new significant LG-negubew-V wave (ST-T) changes or new left bundle [...] additional sample may be indicated. Reference: Third Leonard Definition of Myocardial Infarction. Journal of the [place] [employer] 2012;60:1581-98 Blood specimen (specimen) 07/30/2019 6:10 PM EDT 07/30/2019 6:19 PM EDT Narrative Resulting Agency Comment Spec In Lab Penny Conklin MD CHEMISTRY ORDERABLES Performing Organization Address [facility]/ZIP Co de Phone Number [facility] [place] [address] * POCT Glucose (07/30/2019 4:13 PM EDT) [facility] Signature Glucose, POC 194 65 - 199 mg/dL [facility] Comment: Supplemental ranges: <140 mg/dL before meals <180 mg/dL all other times of the day Blood specimen (specimen) 07/30/2019 4:13 PM EDT 07/30/2019 4:13 PM EDT Aaron Dover MD POINT OF CARE TEST O RDERABLES Performing Organization Address City/[facility]/ZIP Co de Phone Number [facility] [place] [address] * (ABNORMAL) POCT Glucose (07/30/2019 1:18 PM EDT) Glucose, POC 225(H) 65 - 199 mg/dL [facility] Comment: Supplemental ranges: <140 mg/dL before meals <180 mg/dL all other times of the day Blood specimen (specimen) 07/30/2019 1:18 PM EDT 07/30/2019 1:18 PM EDT Aaron Dover MD POINT OF CARE TEST O RDERABLES [facility] [place] [address] * (ABNORMAL) Troponin (07/30/2019 12:30 PM EDT) [facility] Troponin-T 0.07(H) 0.00 - 0.00 ng/mL [facility] Comment: The 99th percentile for Troponin T is less than 0.01 ng/mL, any detectable cTnT concentration using this assay should be considered elevated. According to the third universal definition of myocardial infarction the following criteria with a clinical presentation consistent with acute myocardial ischemia meets the diagnosis for a myocardial infarction ([place]). Detection of a rise and/or fall of cTnT, with at least one value greater than the 99th percentile (> or = 0.01) and with at least one of the following ?? Symptoms of ischemia ?? New or presumed new significant NC-fpnjrya-K wave (ST-T) changes or new left bundle [...] additional sample may be indicated. Reference: Third Leonard Definition of Myocardial Infarction. Journal of the [place] 2012;60:1581-98 Blood specimen (specimen) 07/30/2019 12:30 PM EDT 07/30/2019 12:42 PM EDT Narrative Resulting Agency Comment Spec In Lab Penny Conklin MD CHEMISTRY ORDERABLES [facility] [place] [address] * XR Clavicle Right (Generic) (07/30/2019 12:23 [...] contact the number below. ? Narrative 07/30/2019 12:55 PM EDT EXAMINATION: XR [...] humeral fracture is not included in the auaxx-hg-vtut. Known right second rib fracture is not visible. There is curvilinear density along the right apical and lateral chest wall that is similar to prior, most likely extrapleural blood. No distended loops of bowel. EKG leads overlie the patient and obscure the [id number]. Procedure Note Rosio Burt MD - 07/30/2019 [...] humeral fracture is not included in the [id number]-kv-edjj. Knownright second rib fracture is not visible. There is curvilinear density along theright apical and lateral chest wall that is similar to prior, most likelyextrapleural blood. No distended loops of bowel. EKG leads overlie the patient and obscurethe nbrsh-gd-kryj. IMPRESSION 1. Small left pleural fluid collection versus atelectasis or both. 2. Small volume presumed extrapleural blood at the right apex and alongthe right lateral chest wall secondary to known right rib fracture which isnot well visualized. Thank you for letting us participate in the care of this patient. Forquestions regarding this report, please contact the number below. Aarno Dover MD IMG DX ORDERABLES * (ABNORMAL) POCT Glucose (07/30/2019 12:18 PM EDT) Glucose, POC 255(H) 65 - 199 mg/dL [facility] Comment: Supplemental ranges: <140 mg/dL before meals <180 mg/dL all other times of the day Blood specimen (specimen) 07/30/2019 12:18 PM EDT 07/30/2019 12:18 PM EDT Aaron Dover MD POINT OF CARE TEST O RDERABLES Performing Organization Address [facility] Co de Phone Number [facility] [place] [address] * (ABNORMAL) POCT Glucose (07/30/2019 10:02 AM EDT) Glucose, POC 266(H) 65 - 199 mg/dL [facility] Comment: Supplemental ranges: <140 mg/dL before meals <180 mg/dL all other times of the day Blood specimen (specimen) 07/30/2019 10:02 AM EDT 07/30/2019 10:02 AM EDT Aaron Dover MD POINT OF CARE TEST O FREDERICKERAROSIE Performing Organization Address City/[facility]/ZIP Co de Phone Number [facility] [place] [address] * EKG 12 Lead (07/30/2019 8:59 AM EDT) Ventricular rate 108 BPM MUSE SYSTEM Atrial Rate 108 BPM MUSE SYSTEM P-R Interval 182 ms MUSE SYSTEM QRS Duration 94 ms MUSE SYSTEM Q-T Interval 344 ms MUSE SYSTEM QTC Calculated (Bezet) 460 ms MUSE SYSTEM Calculated P [place] 65 degrees MUSE SYSTEM Calculated R [place] 46 degrees MUSE SYSTEM Calculated T [place] 60 degrees MUSE SYSTEM INTERPRETATION Sinus tachycardia with frequent Premature ventricular complexes Possible Inferior infarct (cited on or before 30-JUL-2019) Abnormal ECG When compared with ECG of 30-JUL-2019 00:51, No significant change was found Confirmed by MD JOANNA, PENNY ([id number]) on 07/30/2019 9:45:15 AM MUSE SYSTEM 07/30/2019 8:59 AM EDT 07/30/2019 9:45 AM EDT Aaron Dover MD ECG ORDERABLES Performing Organization Address [facility] Co de Phone Number MUSE SYSTEM * (ABNORMAL) POCT Glucose (07/30/2019 8:15 AM EDT) Glucose, POC 268(H) 65 - 199 mg/dL [facility] Comment: Supplemental ranges: <140 mg/dL before meals <180 mg/dL all other times of the day Blood specimen (specimen) 07/30/2019 8:15 AM EDT 07/30/2019 8:15 AM EDT Aaron Dover MD POINT OF CARE TEST O RDERABLES [facility] [place] [address] * CT Angiogram Carotids (07/30/2019 8:04 AM [...] contact the number below. ? Narrative 07/30/2019 8:27 AM EDT EXAMINATION: CT [...] contact the number below. ? Narrative 07/30/2019 8:27 AM EDT EXAMINATION: CT [...] contact the number below. Kimani Kiser MD [facility] CT ORDERABLES * (ABNORMAL) Basic Metabolic Panel (non-fasting) (07/30/2019 6:10 AM EDT) Glucose 233(H) 65 - 199 mg/dL [facility] Comment:Diabetes: >=200 mg/d L plus symptoms Blood Urea Nitrogen 37(H) 10 - 20 mg/dL [facility] Creatinine 4.89(H) 0.80 - 1.50 mg/dL [facility] Sodium 136 135 - 145 mmol/L [facility] Potassium 4.5 3.5 - 5.0 mmol/L [facility] Comment: Please note: ??Patients with WBC >100,000 may have falsely elevated Potassium levels. ??For accurate Potassium quantification in these patients send serum separator tube (gold top) for subsequent determinations. ??Contact the Clinical Chemistry Laboratory if there are any questions. Chloride 94(L) 98 - 107 mmol/L [facility] Carbon Dioxide 29 22 - 31 mmol/L [facility] Anion Gap 13 5 - 15 mmol/L [facility] Calcium 8.6 8.5 - 10.5 mg/dL [facility] Est Glomerular Filtration Rate 12(L) >=60 mL/min/1. 73 m?? [facility] Comment: The eGFR was calculated using the CKD-EPI equation. As with all creatinine based estimates of kidney function, eGFR values calculated with the CKD-EPI equation are not accurate in patients with acute kidney failure, extremes of body mass or the acutely ill. http://Lentigen/[facility] eGFR 14(L) >=60 mL/min/1. 73 m?? [facility] Comment: The eGFR was calculated using the CKD-EPI equation. As with all creatinine based estimates of kidney function, eGFR values calculated with the CKD-EPI equation are not accurate in patients with acute kidney failure, extremes of body mass or the acutely ill. http://Lentigen/[facility] Blood specimen (specimen) 07/30/2019 6:10 AM EDT 07/30/2019 6:17 AM EDT Narrative Resulting Agency Comment Spec In Lab Penny Conklin MD CHEMISTRY ORDERABLES [facility] [place] [address] * Phosphorus (07/30/2019 6:10 AM EDT) Phosphorus 4.5 2.5 - 4.5 mg/dL [facility] Blood specimen (specimen) 07/30/2019 6:10 AM EDT 07/30/2019 6:17 AM EDT Narrative Resulting Agency Comment Spec In Lab Aaron Dover MD CHEMISTRY ORDERABLES Performing Organization Address City/[facility]/ZIP Co de Phone Number [facility] [place] [address] * Magnesium (07/30/2019 6:10 AM EDT) Pathologist [facility] Magnesium 0.81 0.69 - 1.07 mmol/L [facility] Blood specimen (specimen) 07/30/2019 6:10 AM EDT 07/30/2019 6:17 AM EDT Narrative Resulting Agency Comment Spec In Lab Aaron Dover MD CHEMISTRY ORDERABLES Performing Organization Address [facility] Co de Phone Number [facility] [place] [address] * (ABNORMAL) Troponin (07/30/2019 6:10 AM EDT) Troponin-T 0.06(H) 0.00 - 0.00 ng/mL [facility] Comment: The 99th percentile for Troponin T is less than 0.01 ng/mL, any detectable cTnT concentration using this assay should be considered elevated. According to the third universal definition of myocardial infarction the following criteria with a clinical presentation consistent with acute myocardial ischemia meets the diagnosis for a myocardial infarction ([place]). Detection of a rise and/or fall of cTnT, with at least one value greater than the 99th percentile (> or = 0.01) and with at least one of the following ?? Symptoms of ischemia ?? New or presumed new significant ME-ajblxuw-E wave (ST-T) changes or new left bundle [...] additional sample may be indicated. Reference: Third Leonard Definition of Myocardial Infarction. Journal of the [place] [employer] 2012;60:1581-98 Blood specimen (specimen) 07/30/2019 6:10 AM EDT 07/30/2019 6:17 AM EDT Narrative Resulting Agency Comment Spec In Lab Penny Conklin MD CHEMISTRY ORDERABLES Performing Organization Address [facility] Co de Phone Number [facility] [place] [address] * POCT Glucose (07/30/2019 1:38 AM EDT) Glucose, POC 175 65 - 199 mg/dL [facility] Comment: Supplemental ranges: <140 mg/dL before meals <180 mg/dL all other times of the day Blood specimen (specimen) 07/30/2019 1:38 AM EDT 07/30/2019 1:38 AM EDT Aaron Dover MD POINT OF CARE TEST O RDERABLES Performing Organization Address [facility] Co de Phone Number [facility] [place] [address] * XR Elbow 3 Views Right (GENERIC) [...] (Bezet) 472 ms MUSE SYSTEM Calculated P [place] 64 degrees MUSE SYSTEM Calculated R [place] 57 degrees MUSE SYSTEM Calculated T [place] 49 degrees MUSE SYSTEM INTERPRETATION Sinus tachycardia [...] necessary): chest abdomen pelvis; Sending Institution [facility]; Date of exam 20190729; I believe a [...] abdomen pelvis; [facility]; Date of exam [id number]; I believe a [...] exclude potential malignancy. Alternatively, depending on the [id number], this can potentially be reevaluated on clinically-decided [...] Head and C spine; Sending Institution [facility]; Date of exam [id number]; I believe a [...] necessary): Head and C spine; [facility]; Date of exam [id number]; I believe a [...] exclude potential malignancy. Alternatively, depending on the [id number], this can potentially be reevaluated on clinically-decided [...] number below. Kimani Kiser MD IMG [facility] ORDERABLES * XR Chest One [...] Hemoglobin A1c 8.6(H) 4.3 - 5.6 % [facility] Comment: Reference Range: 4.3 - [...] 1, S67-74 Estimated Average Glucose 201 mg/dL [facility] Comment: eAG equivalents for HbA1c [...] into estimated average glucose values. ??Diabetes Care 2008:31(8):1329-4805. Blood specimen (specimen) Venous Draw / Unknown 07/29/2019 11:59 PM EDT 07/30/2019 4:51 PM EDT Narrative Resulting Agency Comment Spec In Lab Narcisa Tovar APRN CHEMISTRY ORDERABLE S [facility] [place] [address] * (ABNORMAL) Troponin (07/29/2019 11:59 PM EDT) Troponin-T 0.07(H) 0.00 - 0.00 ng/mL [facility] Comment: Called by: JOHANNA, Read back by: Paula Mallory, Date/Time:07/30/19 01:23. The 99th percentile for Troponin T is less than 0.01 ng/mL, any detectable cTnT concentration using this assay should be considered elevated. According to the third universal definition of myocardial infarction the following criteria with a clinical presentation consistent with acute myocardial ischemia meets the diagnosis for a myocardial infarction ([place]). Detection of a rise and/or fall of cTnT, with at least one value greater than the 99th percentile (> or = 0.01) and with at least one of the following ?? Symptoms of ischemia ?? New or presumed new significant NE-txyuefp-I wave (ST-T) changes or new left bundle [...] additional sample may be indicated. Reference: Third Leonard Definition of Myocardial Infarction. Journal of the [place] [employer] 2012;60:1581-98 Blood specimen (specimen) Venous Draw / Unknown 07/29/2019 11:59 PM EDT 07/30/2019 12:04 AM EDT Narrative Resulting Agency Comment Spec In Lab Kimani Kiser MD CHEMISTRY ORDERABLES Performing Organization Address [facility] Co de Phone Number [facility] [place] [address] * ABORH Recheck Status (07/29/2019 11:59 PM EDT) ABORH Type Recheck Completed [facility] Blood specimen (specimen) 07/29/2019 11:59 PM EDT 07/30/2019 12:03 AM EDT Narrative Resulting Agency Comment Spec In Lab Aaron Dover MD BLOOD BANK LAB ORDER ROBBIE Performing Organization Address City/[facility] Co de Phone Number [facility] [place] [address] * Antibody screen (07/29/2019 11:59 PM EDT) Pathologist [facility] Ab Screen Interp Negative [facility] Expires at [id number] on: 08/01/2019 [facility] Blood specimen (specimen) 07/29/2019 11:59 PM EDT 07/30/2019 12:03 AM EDT Narrative Resulting Agency Comment Spec In Lab Aaron Dover MD BLOOD BANK LAB ORDER ROBBIE [facility] [place] [address] * ABO/Rh Typing (07/29/2019 11:59 PM EDT) [facility] ABORH Type A Pos [facility] Blood specimen (specimen) 07/29/2019 11:59 PM EDT 07/30/2019 12:03 AM EDT Narrative Resulting Agency Comment Spec In Lab Aaron Dover MD BLOOD BANK LAB ORDER ROBBIE Performing Organization Address City/[facility]/ZIP Co de Phone Number [facility] [place] [address] * Gold Tube HOLD (07/29/2019 11:59 PM EDT) [facility] Gold Hold Sample in lab. [facility] Blood specimen (specimen) Venous Draw / Unknown 07/29/2019 11:59 PM EDT 07/30/2019 12:05 AM EDT Kimani Kiser MD CHEMISTRY ORDERABLES [facility] [place] [address] * (ABNORMAL) Differential, Automated (07/29/2019 11:59 PM EDT) [facility] Neutrophil % 83.4 % [facility] Neutrophil Absolute 9.43(H) 1.70 - 6.10 x10(3)/[facility] LABORATORY Lymph % 8.0 % [facility] Lymphocytes Abs 0.9 0.9 - 3.2 x10(3)/[facility] LABORATORY Monocyte % 6.9 % [facility] Monocyte Abs 0.8 0.3 - 0.9 x10(3)/[facility] LABORATORY Eos % 0.7 % [facility] Eosinophils Abs 0.1 0.0 - 0.4 x10(3)/[facility] LABORATORY Basophil % 0.3 % [facility] Baso Absolute 0.0 0.0 - 0.1 x10(3)/[facility] LABORATORY Immature Gran % 0.70 % [facility] Comment: Immature granulocytes(IG's)percentage and absolute count will include metamyelocytes, myelocytes, and promyelocytes. Blood smears from CBCs yielding IG's will be scanned manually for concordance. If this scan disagrees with the automated IG or if promyelocytes are noted, a manual differential will be performed. Immature Gran Absolute 0.08(H) 0.00 - 0.04 x10(3)/[facility] LABORATORY Blood specimen (specimen) 07/29/2019 11:59 PM EDT 07/30/2019 12:04 AM EDT Narrative Resulting Agency Comment Spec In Lab Kimani Kiser MD HEMATOLOGY ORDERABLE S [facility] [place] [address] * (ABNORMAL) Hemogram (07/29/2019 11:59 PM EDT) White Blood Cell 11.3(H) 4.0 - 9.5 x10(3)/[facility] LABORATORY Red Blood Cell 3.37(L) 4.58 - 5.54 x10(6)/[facility] LABORATORY Hemoglobin 10.9(L) 13.7 - 16.5 gm/dL [facility] Hematocrit 32.1(L) 40.5 - 48.5 % [facility] Mean Cell Volume 95.3(H) 82.9 - 93.1 fL [facility] Mean Cell Hemoglobin 32.3(H) 27.5 - 32.1 pg [facility] Mean Cell Hemoglobin Concentration 34.0 32.0 - 35.7 gm/dL [facility] Platelet 135(L) 145 - 357 x10(3)/mc L [facility] RDW Standard Deviation 47.7(H) 36.0 - 45.0 fL [facility] RDW coefficient of variation 13.9(H) 11.4 - 13.8 % [facility] Mean Platelet Volume 9.7 7.6 - 12.9 [facility] LABORATORY NRBC% auto 0.0 % [facility] LABORATORY NRBC Absolute 0.000 0.000 - 0.000 x10(3)/mc L [facility] Blood specimen (specimen) 07/29/2019 11:59 PM EDT 07/30/2019 12:04 AM EDT Narrative Resulting Agency Comment Spec In Lab Kimani Kiser MD HEMATOLOGY ORDERABLE S [facility] [place] [address] * L-Lactate2 Whole Blood (07/29/2019 11:59 PM EDT) Lactate WB 1.2 0.5 - 2.2 mmol/L [facility] Blood specimen (specimen) 07/29/2019 11:59 PM EDT 07/29/2019 11:[address] Evgeny Paez MD CHEMISTRY ORDERABLES [facility] [place] [address] * Ethanol Level (07/29/2019 11:59 PM EDT) Ethanol <100 <=99 mg/L [facility] Comment: Greater than 800 mg/L (0.08%) should be considered intoxicated. 3400 to 4500 mg/L (0.34 - 0.45%) is considered severe intoxication. Greater than 5500 mg/L (0.55%) is usually fatal. Blood specimen (specimen) 07/29/2019 11:59 PM EDT 07/30/2019 12:04 AM EDT Narrative Resulting Agency Comment Spec In Lab Kimani Kiser MD CHEMISTRY ORDERABLES Performing Organization Address [facility] Co de Phone Number [facility] [place] [address] * APTT (07/29/2019 11:59 PM EDT) Partial Thromboplastin Time 34 25 - 37 sec [facility] Comment: The PTT is NOT appropriate for heparin monitoring. Use the Anti-Xa level for heparin monitoring (HEP UFH) or LMWH monitoring (HEP LMW). A PTT less than 37 seconds generally indicates adequate hemostasis. Blood specimen (specimen) 07/29/2019 11:59 PM EDT 07/30/2019 12:04 AM EDT Narrative Resulting Agency Comment Spec In Lab Kimani Kiser MD HEMATOLOGY ORDERABLE S Performing Organization Address [facility] Co de Phone Number [facility] [place] [address] * Prothrombin Time (07/29/2019 11:59 PM EDT) Prothrombin Time 12.1 9.4 - 12.5 sec [facility] International Normalization Ratio 1.0 [facility] Comment: An INR <2.0 indicates [...] Lab Kimani Kiser MD HEMATOLOGY ORDERABLE S [facility] [place] [address] * (ABNORMAL) Basic Metabolic Panel (non-fasting) (07/29/2019 11:59 PM EDT) Glucose 159 65 - 199 mg/dL [facility] Comment:Diabetes: >=200 mg/d L plus symptoms Blood Urea Nitrogen 34(H) 10 - 20 mg/dL [facility] Creatinine 4.59(H) 0.80 - 1.50 mg/dL [facility] Sodium 136 135 - 145 mmol/L [facility] Potassium 3.9 3.5 - 5.0 mmol/L [facility] Comment: Please note: ??Patients with WBC >100,000 may have falsely elevated Potassium levels. ??For accurate Potassium quantification in these patients send serum separator tube (gold top) for subsequent determinations. ??Contact the Clinical Chemistry Laboratory if there are any questions. Chloride 93(L) 98 - 107 mmol/L [facility] Carbon Dioxide 31 22 - 31 mmol/L [facility] Anion Gap 12 5 - 15 mmol/L [facility] Calcium 8.8 8.5 - 10.5 mg/dL [facility] Est Glomerular Filtration Rate 13(L) >=60 mL/min/1. 73 m?? [facility] Comment: The eGFR was calculated using the CKD-EPI equation. As with all creatinine based estimates of kidney function, eGFR values calculated with the CKD-EPI equation are not accurate in patients with acute kidney failure, extremes of body mass or the acutely ill. [email or web address]/[facility]VIEW[facility]f eGFR 15(L) >=60 mL/min/1. 73 m?? [facility] Comment: The eGFR was calculated using the CKD-EPI equation. As with all creatinine based estimates of kidney function, eGFR values calculated with the CKD-EPI equation are not accurate in patients with acute kidney failure, extremes of body mass or the acutely ill. http://[employer]/[facility] Blood specimen (specimen) 07/29/2019 11:59 PM EDT 07/30/2019 12:04 AM EDT Narrative Resulting Agency Comment Spec In Lab Kimani Kiser MD CHEMISTRY ORDERABLES Performing Organization Address City/[facility]/ZIP Co de Phone Number [facility] [place] [address] * Film Library- Storage Only DX Upper Extremity (07/29/2019 10:14 PM EDT) Narrative [facility] - 07/29/2019 10:14 PM EDT This exam is auto-finalizing. It's purpose is for storage only. Aaron Dover MD [facility] FILM LIBRARY ORD ERABLES Performing Organization Address [facility] de Phone Number [place], [place] * Film Library- Storage Only DX Hip (07/29/2019 10:12 PM EDT) Narrative [facility] [place] - 07/29/2019 10:12 PM EDT This exam is auto-finalizing. It's purpose is for storage only. Aaron Dover MD [facility] FILM LIBRARY ORD ERABLES Performing Organization Address [facility] Co de Phone Number [place], [place] * Film Library- Storage Only DX Shoulder (07/29/2019 10:11 PM EDT) Narrative [facility] [place] - 07/29/2019 10:11 PM EDT This exam is auto-finalizing. It's purpose is for storage only. Aaron Dover MD [facility] FILM LIBRARY ORD ERABLES Performing Organization Address [facility] de Phone Number [place], [place] documented in this encounter Visit Diagnoses [...] a Procedural area)1613 (Given - Provider: Petros Veiyra)2010 (Given - Provider: Kendra Beckett RN) 0853 [...] Routine documented in this encounter Care Teams Inside Parts Sales Relationship Specialty Start Date End Date Jarad Keller DNP PCP - General Family Medicine 06/05/18 02/09/21 documented as of this encounter
--- OUTSIDE RECORDS SUMMARY | 2024-01-03 16:16 | XMS_ITS | Encounter Summary ---
[place] [address] Care Team Providers Care Field Return Repairer Name Role Phone Jarad Keller DNP Primary Care Provider [phone] Encounter Details Date Type Department Care Team (Late st Contact Info) Description 08/16/2019 Telephone [place] [id number] Perla Tovar Social History Tobacco Use Types [...] Per TACS SIMONE Pressley contacted Yohannes at [facility] in response to phone note by Rosa from Orthopedics dated 08/16/2019. It has been offered patient go to [facility] on Tuesday August 20, 2019 to complete a CXR and SIMONE Pressley would then call with results and plan advisement. Yohannes has agreed to this proposal and the appointments for tomorrow 08/17/2019 have been canceled. Yohannes @ [facility] TEL: [phone] FAX [phone] documented in this encounter Plan of Treatment Not on file documented as of this encounter Visit Diagnoses Not on filedocumented in this encounter Care Teams Field Return Repairer Relationship Specialty Start Date End Date Jarad Keller DNP PCP - General Family Medicine 06/05/18 02/09/21 documented as of this encounter
--- OUTSIDE RECORDS SUMMARY | 2024-01-03 16:16 | XMS_ITS | Encounter Summary ---
[place] [address] Care Team Providers Care Records Clerk Name Role Phone Jarad Keller DNP Primary Care Provider [phone] Encounter Details Date Type Department Care Team (Late st Contact Info) Description 08/06/2019 Ancillary Procedure [place] [address] Jarad Keller DNP [address] [place] [address] Social History Tobacco Use Types [...] FILM LIBRARY OR DERABLES Performing Organization Address City/State/[facility] Co de Phone Number [place], [place] documented in this encounter Visit Diagnoses Not on filedocumented in this encounter Care Teams Records Clerk Relationship Specialty Start Date End Date Jarad Keller DNP PCP - General Family Medicine 06/05/18 02/09/21 documented as of this encounter
--- OUTSIDE RECORDS SUMMARY | 2024-01-03 16:16 | XMS_ITS | Encounter Summary ---
[place] [address] Care Team Providers Care Financial Advocate Name Role Phone Jarad Keller DNP Primary Care Provider [phone] Encounter Details Date Type Department Care Team (Late st Contact Info) Description 08/16/2019 12:05 AM EDT Ancillary Procedure [place] [address] Jarad Keller DNP [address] [place] [address] Social History Tobacco Use Types [...] City/State/[facility] Co de Phone Number [place], [place] documented in this encounter Visit Diagnoses Not on filedocumented in this encounter Care Teams Financial Advocate Relationship Specialty Start Date End Date Jarad Keller DNP PCP - General Family Medicine 06/05/18 02/09/21 documented as of this encounter
--- OUTSIDE RECORDS SUMMARY | 2024-01-03 16:16 | XMS_ITS | Encounter Summary ---
Author Organization [facility] [place] [address] Care Team Providers Care Shadowgraph Scale Operator Name Role Phone Jarad Keller DANIKA Primary Care Provider [phone] Encounter Details Date Type Department Care Team (Latest Contact Info) Description 08/29/2019 2:30 PM EDT TH Visit (TeleHealth) [place] [address] Ceasar Roy MD [facility] [place] [address] Type 2 diabetes mellitus with hyperglycemia, with [...] Since that time, he was admitted to [facility] in July 2019 for fall leading to significant head/spine injuries. He was discharged a few weeks ago and has been at a rehab facility in [facility] where he was at the time [...] unit (V-GO 20) Device, 1 each by [facility].(Non-Drug; Combo Route) route daily. Insulin pump to [...] for repeat telehealth visit Ceasar Roy MD Electrical Timing Device Calibratorsulfonation equipment operator Endocrinology Section [facility] documented in this encounter Plan of Treatment Not on file documented as of this encounter Visit Diagnoses Diagnosis Type 2 diabetes mellitus with hyperglycemia, with long-term current use of insulin documented in this encounter Care Teams Shadowgraph Scale Operator Relationship Specialty Start Date End Date Jarad Keller DNP PCP - General Family Medicine 06/05/18 02/09/21 documented as of this encounter
--- OUTSIDE RECORDS SUMMARY | 2024-01-03 16:17 | XMS_ITS | Encounter Summary ---
[place] [address] Care Team Providers Care Clinic Lpn Name Role Phone Jarad Keller DANIKA Primary Care Provider [phone] Reason for Visit * Reason Onset Date Comments Appointment 07/18/2019 Encounter Details Date Type Department Care Team (Late st Contact Info) Description 07/18/2019 Telephone [place] [address] Harmeet Arvizu MD [facility] [place] [address] Appointment Social History Tobacco Use Types Packs/Day [...] on filedocumented in this encounter Care Teams Clinic Lpn Relationship Specialty Start Date End Date Jarad Keller DNP PCP - General Family Medicine 06/05/18 02/09/21 documented as of this encounter
--- OUTSIDE RECORDS SUMMARY | 2024-01-03 16:17 | XMS_ITS | Encounter Summary ---
[place] [address] Care Team Providers Care Supervisor Slitting And Shipping Name Role Phone Jarad Keller DANIKA Primary Care Provider [phone] Reason for Visit * Auth/Cert Specialty Diagnoses / Procedures Referred By Puneet hallman Referred To Contact Diagnoses Fall Fall, initial encounter Referral ID Status Reason Start Date Expiration Date Visits Re quested Visits Authorized [id number] 1 1 Encounter Details Date Type Department Care Team (Latest Contact Info) Description 07/31/2019 5:15 AM EDT - 07/31/2019 11:59 PM EDT Hospital Encounter [place] [address] Discharge Disposition: Home Social History Tobacco Use [...] mLs documented in this encounter Care Teams Supervisor Slitting And Shipping Relationship Specialty Start Date End Date Jarad Keller DNP PCP - General Family Medicine 06/05/18 02/09/21 documented as of this encounter
--- OUTSIDE RECORDS SUMMARY | 2024-01-03 16:17 | XMS_ITS | Encounter Summary ---
Author Organization [facility] [place] [address] Care Team Providers Care Software Engineer Name Role Phone Jarad Keller DNP Primary Care Provider [phone] Encounter Details Date Type Department Care Team (Late st Contact Info) Description 10/19/2018 Telephone [place] [address] Too Morgan MD [facility] [place] [address] Social History Tobacco Use Types Packs/Day Years [...] in dialysis. He was recently admitted to [facility]. He was admitted for cellulitis and [...] dialysis can be done. We will call [facility] to see if they can accept him in transfer. documented in this encounter Plan of Treatment Not on file documented as of this encounter Visit Diagnoses Not on filedocumented in this encounter Care Teams Software Engineer Relationship Specialty Start Date End Date Jarad Keller DNP PCP - General Family Medicine 06/05/18 02/09/21 documented as of this encounter
--- OUTSIDE RECORDS SUMMARY | 2024-01-03 16:17 | XMS_ITS | Encounter Summary ---
Author Organization [facility] [place] [address] Care Team Providers Care Health Information Managers Name Role Phone Jarad Keller DNP Primary Care Provider [phone] Encounter Details Date Type Department Care Team (Late st Contact Info) Description 07/30/2019 Orders [place] [address] Louis Vergara MD [facility] [place] [address] Closed fracture of right scapula, unspecified part [...] below. ? Electronically signed by: Debra Jasmine [facility] ([phone]), at 07/30/2019 12:40 PM Procedure Note Debra Jasmine MD - 07/30/2019 [...] number below. Electronically signed by: Debra Jasmine [facility]([phone]), at 07/30/2019 12:40 PM Louis Vergara MD IMG DX ORDERABLES * [...] below. ? Electronically signed by: Debra Jasmine [facility] ([phone]), at 07/30/2019 12:40 PM Procedure Note Debra Jasmine MD - 07/30/2019 [...] number below. Electronically signed by: Debra Jasmine [facility]([phone]), at 07/30/2019 12:40 PM Louis Vergara MD IMG DX ORDERABLES documented in this encounter Visit Diagnoses Diagnosis Closed fracture of right scapula, unspecified part of scapula, initial encounter Closed nondisplaced fracture of shaft of right clavicle, initial encounter Closed fracture of proximal end of right humerus, unspecified fracture morphology, initial encounter documented in this encounter Care Teams Health Information Managers Relationship Specialty Start Date End Date Jarad Keller DNP PCP - General Family Medicine 06/05/18 02/09/21 documented as of this encounter
--- OUTSIDE RECORDS SUMMARY | 2024-01-03 16:17 | XMS_ITS | Encounter Summary ---
Author Organization [facility] [place] [address] Care Team Providers Care Disposition Clerk Name Role Phone Jarad Keller DNP Primary Care Provider [phone] Reason for Visit * Reason Comments Cellulitis * Auth/Cert Specialty Diagnoses / Procedures Referred By Puneet t Referred To Contact Diagnoses Cellulitis Cellulitis of leg, left Referral ID Status Reason Start Date Expiration Date Visits Re quested Visits Authorized [id number] 1 1 Encounter Details Date Type Department Care Team (Latest Contact Info) Description 10/19/2018 2:44 PM EDT - 10/22/2018 2:26 PM EDT Hospital Encounter 1 [place] [address] [place] [address] [place] [address] [place] [address] Cellulitis of leg, left Discharge Disposition: Home [...] Sindi Rudolph Patient Age: 58 y.o. Language: Jordanian Race: White Ethnicity: Not nor Admit date: 10/19/2018 Discharge date and time: 10/22/18 Attending Physician: Rylan Stout MD Discharge Physician: Rylan Stout MD Follow-up Recommendations for Providers: - please follow-up for ongoing improvement of left foot/leg cellulitis Inpatient Provider Contact Information: For questions regarding this document or issues relating to this hospitalization on the Medical Service, please contact your inpatient physician through the [facility] Senior Database Administrator . Issues afterhours and on weekends will [...] erythema, pain and fevers. He presented to [facility] where he was hospitalizedfor 3 days with [...] Center 10/23/2018 2:30 PM Ceasar Roy MD [facility] CLIN Your Inpatient Medical Team at [facility] Name(s) of your inpatient provider(s): Rylan Stout MD For questions regarding issues relating to your hospitalization on the Hospital Medicine Service, please contact your inpatient physician through the [facility] Senior Database Administrator [phone]. Issues after hours and on weekends will be handled by the Hospitalist staff on-call. Your Primary Care Provider Jarad Sanjay Arianna, TRUCK AND TRANSPORT MECHANIC [phone] General Instructions None Future Appointments and Orders Future Appointments and Orders Future Appointments Provider Department Dept Phone 10/23/2018 2:30 PM Ceasar Roy MD Endocrinology at [place] Arrive at: Electric Motor Tester Area [phone] Discharge References/Attachments None documented in this encounter [...] 2:30 PM Ceasar Roy MD [facility] [place] [facility] Your Inpatient Medical Team at [facility] Name(s) of your inpatient provider(s): Rylan Stout MD For questions regarding issues relating to your hospitalization on the Hospital Medicine Service, please contact your inpatient physician through the [facility] Senior Database Administrator [phone]. Issues after hours and on weekends will be handled by the Hospitalist staff on-call. Your Primary Care Provider Jarad Grace Arianna, TRUCK AND TRANSPORT MECHANIC [phone] documented in this encounter Medications at Time [...] 10/22/2018 10:57 AM EDT Per 1E request MOLDING TECHNICIAN supported pt w/ ride home at d/c due to financial need/friends not being able topick him up over weekend. Charge slip routed to [facility] Admin. Door to Door Transportation will olive picker pt at [facility] at 2PM 10/22 Office Of Care Management Float/Weekend Delphi Programmer GAURI Nice Pager [phone] * Rylan Stout MD - 10/22/2018 10:31 [...] spent >30 minutes (Day of Discharge Code 43716) involved in the final examination of the [...] Stout MD - 10/21/2018 3:47 PM EDT [facility] Medicine Inpatient Progress Note Interval History: [...] Stout MD 10/21/2018 Hospital Medicine Team Pager [phone] * Era Anderson RN - 10/20/2018 4:14 [...] Burkett MD - 10/20/2018 11:47 AM EDT [facility] Medicine - [facility] Team Inpatient Progress Note ID: Sindi Rudolph [...] 10/20/2018 Internal Medicine Hospital Medicine Team Pager [phone] Associated attestation - Ahsan Guevara MD - [...] of two midnights or is on the [facility] inpatient only procedure list (status C) due [...] eyes ID: 58 y.o. Male presents to [facility] with left leg swelling. History of Present Illness: HPI 58 y/o male with pmhx ESRD on HD TTS, CAD s/p CABG 2014, IDDM, HTN, HPL who presents with left leg swelling. The patient reports being in his usual state of health until about 10 days ago when he began experiencing left lower extremity erythema, pain and fevers. He presented to [facility] where he was hospitalizedfor 3 days with [...] INSERTION performed by Erasmo Bajwa MD at [facility] ??? PRO REMV CATARACT EXTRACAP,INSERT LENS,COMP 07/18/2012 ? ? PRO REPAIR COMPLEX RETINA DETACH VITRECTOMY & MEMB PEEL 04/03/2012, 04/03/12 REPAIR COMPLEX RETINAL DETACHMENT, W/ VITRECTOMY, MEMBRANE PEELING performed by Matteo Diane MD at [facility] ? ? PRO REPAIR COMPLEX RETINA DETACH VITRECTOMY & MEMB PEEL 07/31/2012 REPAIR COMPLEX RETINAL DETACHMENT, W/ VITRECTOMY, MEMBRANE PEELING performed by Matteo Diane MD at [facility] OR ? ? PRO REPAIR COMPLEX RETINA DETACH VITRECTOMY & MEMB PEEL 01/08/2013 REPAIR COMPLEX RETINAL DETACHMENT, W/ VITRECTOMY, MEMBRANE PEELING performed by Matteo Diane MD at [facility] ??? PRO TX [...] unit (V-GO 40) Device 40 Units by [facility]Non-Drug; Combo Route) route daily. 30 Device 11 [...] file Gets together: Not on file Attends synagogue service: Not on file Active member of [...] He states that he was recentlydischarged from [facility] after 3 days of inpatient IV abx [...] diabetes, on insulin, hypertension, and [facility] a left lower extremity cellulitis [...] knee up into his thigh rapidly. His php lamp developer ws concerned so recommended he come here [...] 9:25 AM EDT NEPHROLOGY CONSULT NOTE PATIENT: iSndi Rudolph : 1960 REASON FOR CONSULTATION: HD [...] with plants/animals. Patient was apparently hospitalized at [facility] for 3 days and was treated with Vancomycin followed by Cefazolin. Patient was discharged on 10/13 to continue Cefazolin with every HD. Patient reports LLE erythema and pain worsened despite continued antibiotic treatment which prompted him to seek medical care at [facility]. On arrival patient was hemodynamically stable and [...] INSERTION performed by Erasmo Bajwa MD at [facility] ??? PRO REMV CATARACT EXTRACAP,INSERT LENS,COMP 07/18/2012 ? ? PRO REPAIR COMPLEX RETINA DETACH VITRECTOMY & MEMB PEEL 04/03/2012, 04/03/12 REPAIR COMPLEX RETINAL DETACHMENT, W/ VITRECTOMY, MEMBRANE PEELING performed by Matteo Diane MD at [facility] MA[facility] OR ? ? PRO REPAIR COMPLEX RETINA DETACH VITRECTOMY & MEMB PEEL 07/31/2012 REPAIR COMPLEX RETINAL DETACHMENT, W/ VITRECTOMY, MEMBRANE PEELING performed by Matteo Diane MD at [facility] MA[facility] OR ? ? PRO REPAIR COMPLEX RETINA DETACH VITRECTOMY & MEMB PEEL 01/08/2013 REPAIR COMPLEX RETINAL DETACHMENT, W/ VITRECTOMY, MEMBRANE PEELING performed by Matteo Diane MD at [facility] OR ??? PRO TX [...] unit (V-GO 40) Device 40 Units by [facility].(Non-Drug; Combo Route) route daily. 30 Device 11 [...] Secondary to diabetic nephropathy. Outpatient HD at [facility]. - Access: LUE AVF - HD [...] WFL Vision & Perception: ?? 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 Blind in R eye ?? Endurance: [...] Occupational Therapy: 28(1x schm 1x theract) Pager: [phone] JEOVANNY Peterson Occupational Therapy Rehabilitation Department * [...] INSERTION performed by Erasmo Bajwa MD at [facility] ??? PRO REMV CATARACT EXTRACAP,INSERT LENS,COMP 07/18/2012 ? ? PRO REPAIR COMPLEX RETINA DETACH VITRECTOMY & MEMB PEEL 04/03/2012, 04/03/12 REPAIR COMPLEX RETINAL DETACHMENT, W/ VITRECTOMY, MEMBRANE PEELING performed by Matteo Diane MD at [facility] MA[facility] OR ? ? PRO REPAIR COMPLEX RETINA DETACH VITRECTOMY & MEMB PEEL 07/31/2012 REPAIR COMPLEX RETINAL DETACHMENT, W/ VITRECTOMY, MEMBRANE PEELING performed by Matteo Diane MD at [facility] MA[facility] OR ? ? PRO REPAIR COMPLEX RETINA DETACH VITRECTOMY & MEMB PEEL 01/08/2013 REPAIR COMPLEX RETINAL DETACHMENT, W/ VITRECTOMY, MEMBRANE PEELING performed by Matteo Diane MD at [facility] MA[facility] OR ??? PRO TX [...] wheelchair,neither pt nor drive. Pt uses a [employer] for transportation.Pt currently using cane d/t LLE [...] outlinedin this evaluation. Time IN / OUT: 2673-5718 Total Evaluation Minutes, Physical Therapy: 23(PT eval and gait training with RW) Ira Lizarraga, PT Pager: [phone] Physical Therapy Inpatient Rehabilitation Department * Plan [...] INSERTION performed by Erasmo Bajwa MD at [facility] ??? PRO REMV CATARACT EXTRACAP,INSERT LENS,COMP 07/18/2012 ? ? PRO REPAIR COMPLEX RETINA DETACH VITRECTOMY & MEMB PEEL 04/03/2012, 04/03/12 REPAIR COMPLEX RETINAL DETACHMENT, W/ VITRECTOMY, MEMBRANE PEELING performed by Matteo Diane MD at [facility] MA[facility] OR ? ? PRO REPAIR COMPLEX RETINA DETACH VITRECTOMY & MEMB PEEL 07/31/2012 REPAIR COMPLEX RETINAL DETACHMENT, W/ VITRECTOMY, MEMBRANE PEELING performed by Matteo Diane MD at [facility] OR ? ? PRO REPAIR COMPLEX RETINA DETACH VITRECTOMY & MEMB PEEL 01/08/2013 REPAIR COMPLEX RETINAL DETACHMENT, W/ VITRECTOMY, MEMBRANE PEELING performed by Matteo Diane MD at [facility] OR ??? PRO TX [...] side Vision & Perception: ?? 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 Blind in R eye Communication: WFL [...] for a sock aid. Pt uses a director market intelligence at baseline to doff socks. Functional Mobility: [...] of daily living. Equipment needs at discharge: director market intelligence, sock aid Other Recommendations: ?? Utilize upright [...] and measurable assessment of functional outcome. Pager: [phone] Laureen Pantoja OT 10/20/2018 Occupational Therapy Rehabilitation [...] encounter: 105 kg (231 lb 7.7 oz). [place] Body Weight (IBW): [place] body weight: 59.2 kg (130 lb 8.2 oz) Adjusted ideal body weight: 77.5 kg (170 lb 14.4 oz) UBW: patient reports that his weight has increased a little bit since he moved to [place]; he states gradual increase in his dry [...] while inpatient THANKS MARÍA Limon Beeper #: [phone] * Plan of Care - Cari Anderson, [...] reinforcement provided;verbalization of feelings encouraged Diversional Activities smartphone;Joyride Family/Support System Care self-care encouraged Trust Relationship/Rapport [...] TEST O RDERABLES [facility] [place] [address] * (ABNORMAL) PTH (10/22/2018 9:44 AM EDT) Parathyroid Hormone 131(H) 15 - 65 pg/mL [facility] Blood specimen (specimen) 10/22/2018 9:44 AM EDT 10/22/2018 10:21 AM EDT Narrative Resulting Agency Comment Spec In Lab Alan Condon MD CHEMISTRY ORDERABLES Performing Organization Address [facility] Co de Phone Number [facility] [place] [address] * POCT Glucose (10/22/2018 7:22 AM EDT) Glucose, POC 132 65 - 199 mg/dL [facility] Comment: Supplemental ranges: <140 mg/dL before meals <180 mg/dL all other times of the day Blood specimen (specimen) 10/22/2018 7:22 AM EDT 10/22/2018 7:22 AM EDT Rylan Stout MD POINT OF CARE TEST O RDERABLES Performing Organization Address [facility] Co de Phone Number [facility] [place] [address] * POCT Glucose (10/22/2018 3:44 AM EDT) Glucose, POC 136 65 - 199 mg/dL [facility] Comment: Supplemental ranges: <140 mg/dL before meals <180 mg/dL all other times of the day Blood specimen (specimen) 10/22/2018 3:44 AM EDT 10/22/2018 3:44 AM EDT Rylan Stout MD POINT OF CARE TEST O RDERAROSIE Performing Organization Address [facility] Co de Phone Number [facility] [place] [address] * POCT Glucose (10/21/2018 11:42 PM EDT) Glucose, POC 126 65 - 199 mg/dL [facility] Comment: Supplemental ranges: <140 mg/dL before meals <180 mg/dL all other times of the day Blood specimen (specimen) 10/21/2018 11:42 PM EDT 10/21/2018 11:42 PM EDT Rylan Stout MD POINT OF CARE TEST O ANTONETTE Performing Organization Address [facility] Co de Phone Number [facility] [place] [address] * (ABNORMAL) POCT Glucose (10/21/2018 8:13 PM EDT) Glucose, POC 233(H) 65 - 199 mg/dL [facility] Comment: Supplemental ranges: <140 mg/dL before meals <180 mg/dL all other times of the day Blood specimen (specimen) 10/21/2018 8:13 PM EDT 10/21/2018 8:13 PM EDT Rylan Stout MD POINT OF CARE TEST Collette WHITMAN Performing Organization Address [facility] Co de Phone Number [facility] [place] [address] * POCT Glucose (10/21/2018 3:17 PM EDT) Glucose, POC 113 65 - 199 mg/dL [facility] Comment: Supplemental ranges: <140 mg/dL before meals <180 mg/dL all other times of the day Blood specimen (specimen) 10/21/2018 3:17 PM EDT 10/21/2018 3:17 PM EDT Rylan Stout MD POINT OF CARE TEST O ANTONETTE Performing Organization Address [facility] Co de Phone Number [facility] [place] [address] * (ABNORMAL) POCT Glucose (10/21/2018 11:16 AM EDT) Glucose, POC 201(H) 65 - 199 mg/dL [facility] Comment: Supplemental ranges: <140 mg/dL before meals <180 mg/dL all other times of the day Blood specimen (specimen) 10/21/2018 11:16 AM EDT 10/21/2018 11:16 AM EDT Rylan Stout MD POINT OF CARE TEST Collette WHITMAN Performing Organization Address [facility] Co de Phone Number [facility] [place] [address] * Hepatitis B Surface Antigen (10/21/2018 8:56 AM EDT) Hepatitis B Surface Antigen Negative Negative [facility] Blood specimen (specimen) 10/21/2018 8:56 AM EDT 10/21/2018 9:39 AM EDT Narrative Resulting Agency Comment Spec In Lab Alan Condon MD CHEMISTRY ORDERABLES Performing Organization Address [facility] de Phone Number [facility] [place] [address] * POCT Glucose (10/21/2018 6:53 AM EDT) [facility] Glucose, POC 113 65 - 199 mg/dL [facility] Comment: Supplemental ranges: <140 mg/dL before meals <180 mg/dL all other times of the day Blood specimen (specimen) 10/21/2018 6:53 AM EDT 10/21/2018 6:53 AM EDT Ahsan Guevara MD POINT OF CARE TEST Collette WHITMAN Performing Organization Address [facility] de Phone Number [facility] [place] [address] * (ABNORMAL) Phosphorus (10/21/2018 6:42 AM EDT) Phosphorus 5.8(H) 2.5 - 4.5 mg/dL [facility] Blood specimen (specimen) Venous Draw / Unknown 10/21/2018 6:42 AM EDT 10/21/2018 8:42 AM EDT Narrative Resulting Agency Comment Spec In Lab Magen Chaudhari MD CHEMISTRY ORDERA BLES Performing Organization Address City/[facility]/ZIP Co de Phone Number [facility] [place] [address] * (ABNORMAL) Differential, Automated (10/21/2018 6:42 AM EDT) Neutrophil % 73.9 % [facility] Neutrophil Absolute 5.34 1.70 - 6.10 x10(3)/mc L [facility] Lymph % 14.2 % [facility] Lymphocytes Abs 1.0 0.9 - 3.2 x10(3)/mc L [facility] Monocyte % 7.9 % [facility] Monocyte Abs 0.6 0.3 - 0.9 x10(3)/mc L [facility] Eos % 1.9 % [facility] Eosinophils Abs 0.1 0.0 - 0.4 x10(3)/mc L [facility] Basophil % 0.6 % [facility] [...] MD HEMATOLOGY ORDERABLE S Performing Organization Address [facility]/ZIP Co de Phone Number [facility] [place] [address] * (ABNORMAL) Hemogram (10/21/2018 6:42 AM EDT) [facility] White Blood Cell 7.2 4.0 - [...] HOSPITAL LABORATORY Platelet 253 145 - 357 x10(3)/[facility] LAB[facility]ATORY RDW Standard Deviation 47.8(H) 36.0 - 45.0 [facility] LAB[facility]ATORY RDW coefficient of variation 13.6 11.4 - 13.8 % [facility] Mean Platelet Volume 8.9 7.6 - 12.9 [facility] NRBC% auto 0.0 % [facility] NRBC Absolute 0.000 0.000 - 0.000 x10(3)/[facility] Blood specimen (specimen) 10/21/2018 6:42 AM EDT 10/21/2018 6:51 AM EDT Narrative Resulting Agency Comment Spec In Lab Cari Burkett MD HEMATOLOGY ORDERABLE S [facility] [place] [address] * (ABNORMAL) Basic Metabolic Panel (non-fasting) (10/21/2018 6:42 AM EDT) [facility] Glucose 122 65 - 199 mg/dL [...] of body mass or the acutely ill. [email or web address]/DHnkf eGFR 15(L) >=60 mL/min/1. 73 m?? [facility] Comment: The eGFR was calculated using the CKD-EPI equation. As with all creatinine based estimates of kidney function, eGFR values calculated with the CKD-EPI equation are not accurate in patients with acute kidney failure, extremes of body mass or the acutely ill. [email or web address]/DHMCnkf Blood specimen (specimen) 10/21/2018 6:42 AM EDT 10/21/2018 6:51 AM EDT Narrative Resulting Agency Comment Spec In Lab Ahsan Guevara MD CHEMISTRY ORDERABLES [facility] [place] [address] * POCT Glucose (10/21/2018 4:15 AM EDT) Glucose, POC 115 65 - 199 mg/dL [facility] Comment: Supplemental ranges: <140 mg/dL before meals <180 mg/dL all other times of the day Blood specimen (specimen) 10/21/2018 4:15 AM EDT 10/21/2018 4:15 AM EDT Ahsan Guevara MD POINT OF CARE TEST O RDERAROSIE [facility] [place] [address] * POCT Glucose (10/20/2018 11:31 PM EDT) Glucose, POC 88 65 - 199 mg/dL [facility] Comment: Supplemental ranges: <140 mg/dL before meals <180 mg/dL all other times of the day Blood specimen (specimen) 10/20/2018 11:31 PM EDT 10/20/2018 11:31 PM EDT Ahsan Guevara MD POINT OF CARE TEST O FREDERICKERAROSIE [facility] [place] [address] * POCT Glucose (10/20/2018 7:53 PM EDT) Glucose, POC 170 65 - 199 mg/dL [facility] Comment: Supplemental ranges: <140 mg/dL before meals <180 mg/dL all other times of the day Blood specimen (specimen) 10/20/2018 7:53 PM EDT 10/20/2018 7:53 PM EDT Ahsan Guevara MD POINT OF CARE TEST O RDERAROSIE [facility] [place] [address] * (ABNORMAL) Differential, Automated (10/20/2018 7:12 PM EDT) Neutrophil % 73.3 % [facility] Neutrophil Absolute 4.76 1.70 - 6.10 x10(3)/mc L [facility] Lymph % 13.9 % [facility] Lymphocytes Abs 0.9 0.9 - 3.2 x10(3)/ L [facility] Monocyte % 8.0 % [facility] Monocyte Abs 0.5 0.3 - 0.9 x10(3)/[facility] LABORATORY Eos % 2.6 % [facility] Eosinophils Abs 0.2 0.0 - 0.4 x10(3)/[facility] LABORATORY Basophil % 0.8 % [facility] Baso Absolute 0.0 0.0 - 0.1 x10(3)/[facility] LABORATORY Immature Gran % 1.40 % MOUNT [...] HEMATOLOGY ORDERABLE S [facility] [place] [address] * (ABNORMAL) Hemogram (10/20/2018 7:12 PM EDT) White Blood Cell 6.5 4.0 - 9.5 x10(3)/mc L [facility] Red Blood Cell 3.15(L) 4.58 - 5.54 x10(6)/[facility] LABORATORY Hemoglobin 9.8(L) 13.7 - 16.5 gm/dL [facility] Hematocrit 31.0(L) 40.5 - 48.5 % [facility] Mean Cell Volume 98.4(H) 82.9 - 93.1 [facility] LAB[facility] Mean Cell Hemoglobin 31.1 27.5 - 32.1 pg [facility] Mean Cell Hemoglobin Concentration 31.6(L) 32.0 - 35.7 gm/dL [facility] Platelet 259 145 - 357 x10(3)/[facility] LABORATORY RDW Standard Deviation 48.1(H) 36.0 - 45.0 [facility] LABORATORY RDW coefficient of variation 13.4 11.4 - 13.8 % [facility] Mean Platelet Volume 9.2 7.6 - 12.9 [facility] LAB[facility]ATORY NRBC% auto 0.0 % [facility] NRBC Absolute 0.000 0.000 - 0.000 x10(3)/[facility] Blood specimen (specimen) 10/20/2018 7:12 PM EDT 10/20/2018 7:40 PM EDT Narrative Resulting Agency Comment Spec In Lab Cari Burkett MD HEMATOLOGY ORDERABLE S [facility] [place] [address] * (ABNORMAL) Basic Metabolic Panel (non-fasting) (10/20/2018 [...] of body mass or the acutely ill. [email or web address]://[email or web address]/DHnkf eGFR 19(L) >=60 mL/min/1. 73 m?? [facility] Comment: The eGFR was calculated using the CKD-EPI equation. As with all creatinine based estimates of kidney function, eGFR values calculated with the CKD-EPI equation are not accurate in patients with acute kidney failure, extremes of body mass or the acutely ill. [email or web address]/DHMCnkf Blood specimen (specimen) 10/20/2018 7:12 PM EDT 10/20/2018 7:40 PM EDT Narrative Resulting Agency Comment Spec In Lab Ahsan Guevara MD CHEMISTRY ORDERABLES [facility] [place] [address] * POCT Glucose (10/20/2018 4:16 PM EDT) Glucose, POC 152 65 - 199 mg/dL [facility] Comment: Supplemental ranges: <140 mg/dL before meals <180 mg/dL all other times of the day Blood specimen (specimen) 10/20/2018 4:16 PM EDT 10/20/2018 4:16 PM EDT Ahsan Guevara MD POINT OF CARE TEST O ANTONETTE [facility] [place] [address] * CT Lower Extremity w Contrast Left [...] CARE TEST O RDERABLES Performing Organization Address [facility]/ZIP Co de Phone Number [facility] [place] [address] * (ABNORMAL) POCT Glucose (10/20/2018 9:14 AM EDT) Glucose, POC 236(H) 65 - 199 mg/dL [facility] Comment: Supplemental ranges: <140 mg/dL before meals <180 mg/dL all other times of the day Blood specimen (specimen) 10/20/2018 9:14 AM EDT 10/20/2018 9:14 AM EDT Bessy Anaya MD POINT OF CARE TE ST ORDERABLES Performing Organization Address City/[facility]/ZIP Co de Phone Number [facility] [place] [address] * POCT Glucose (10/20/2018 6:54 AM EDT) Glucose, POC 175 65 - 199 mg/dL [facility] Comment: Supplemental ranges: <140 mg/dL before meals <180 mg/dL all other times of the day Blood specimen (specimen) 10/20/2018 6:54 AM EDT 10/20/2018 6:54 AM EDT Bessy Anaya MD POINT OF CARE TE ST ORDERABLES Performing Organization Address City/[facility]/ZIP Co de Phone Number [facility] [place] [address] * POCT Glucose (10/20/2018 3:26 AM EDT) Glucose, POC 195 65 - 199 mg/dL [facility] Comment: Supplemental ranges: <140 mg/dL before meals <180 mg/dL all other times of the day Blood specimen (specimen) 10/20/2018 3:26 AM EDT 10/20/2018 3:26 AM EDT Bessy Anaya MD POINT OF CARE TE ST ORDERABLES Performing Organization Address [facility] Co de Phone Number [facility] [place] [address] * (ABNORMAL) POCT Glucose (10/19/2018 11:42 PM EDT) Glucose, POC 217(H) 65 - 199 mg/dL [facility] Comment: Supplemental ranges: <140 mg/dL before meals <180 mg/dL all other times of the day Blood specimen (specimen) 10/19/2018 11:42 PM EDT 10/19/2018 11:42 PM EDT Bessy Anaya MD POINT OF CARE TE ST ORDERABLES Performing Organization Address City/[facility] Co de Phone Number [facility] [place] [address] * (ABNORMAL) POCT Glucose (10/19/2018 9:38 PM EDT) Glucose, POC 241(H) 65 - 199 mg/dL [facility] Comment: Supplemental ranges: <140 mg/dL before meals <180 mg/dL all other times of the day Blood specimen (specimen) 10/19/2018 9:38 PM EDT 10/19/2018 9:38 PM EDT Bessy Anaya MD POINT OF CARE TE ST ORDERABLES Performing Organization Address [facility] Co de Phone Number [facility] [place] [address] * POCT Glucose (10/19/2018 8:21 PM EDT) Glucose, POC 181 65 - 199 mg/dL [facility] Comment: Supplemental ranges: <140 mg/dL before meals <180 mg/dL all other times of the day Blood specimen (specimen) 10/19/2018 8:21 PM EDT 10/19/2018 8:21 PM EDT Bessy Anaya MD POINT OF CARE TE ST ORDERABLES Performing Organization Address [facility] de Phone Number [facility] [place] [address] * POCT Glucose (10/19/2018 6:40 PM EDT) Glucose, POC 165 65 - 199 mg/dL [facility] Comment: Supplemental ranges: <140 mg/dL before meals <180 mg/dL all other times of the day Blood specimen (specimen) 10/19/2018 6:40 PM EDT 10/19/2018 6:[address] Evgeny Paez MD POINT OF CARE TEST O RDERABLES Performing Organization Address [facility] Co de Phone Number [facility] [place] [address] * EKG 12 Lead (10/19/2018 5:02 PM EDT) Ventricular rate 97 BPM MUSE SYSTEM Atrial Rate 97 BPM MUSE SYSTEM P-R Interval 184 ms MUSE SYSTEM QRS Duration 92 ms MUSE SYSTEM Q-T Interval 370 ms MUSE SYSTEM QTC Calculated (Bezet) 469 ms MUSE SYSTEM Calculated P [place] 61 degrees MUSE SYSTEM Calculated R [place] 50 degrees MUSE SYSTEM Calculated T [place] 73 degrees MUSE SYSTEM INTERPRETATION Sinus rhythm [...] Text Report Department: Vascular Surgery Lab Patient: [id number] (SINDI RUDOLPH) CPT: 84924 ICD10: M79.605;R60.0;L03. 116 Referring Physician: SINAN PATEL [...] L-Lactate2 Whole Blood (10/19/2018 3:23 PM EDT) [facility] Lactate WB 1.6 0.5 - 2.2 mmol/L [facility] Blood specimen (specimen) 10/19/2018 3:23 PM EDT 10/19/2018 3:[address] Evgeny Paez MD CHEMISTRY ORDERABLES Performing Organization Address City/[facility]/ZIP Co de Phone Number [facility] [place] [address] * (ABNORMAL) Hepatic Function Panel (10/19/2018 3:20 PM EDT) [facility] Protein, Total 8.5(H) 6.1 - 8.0 [...] Burkett MD CHEMISTRY ORDERABLES Performing Organization Address [facility] Co de Phone Number [facility] [place] [address] * Blue Tube HOLD (10/19/2018 3:20 PM EDT) [facility] Blue Hold Sample in lab. [facility] Blood specimen (specimen) Venous Draw / Unknown 10/19/2018 3:20 PM EDT 10/19/2018 3:33 PM EDT Ahsan EDGAR HEMATOLOGY ORDERABLE S [facility] [place] [address] * (ABNORMAL) Differential, Automated (10/19/2018 3:20 PM EDT) Neutrophil % 71.8 % [facility] Neutrophil Absolute 4.78 1.70 - 6.10 x10(3)/[facility] Lymph % 13.1 % [facility] Lymphocytes Abs 0.9 0.9 - 3.2 x10(3)/[facility] LAB[facility] Monocyte % 7.5 % [facility] Monocyte Abs 0.5 0.3 - 0.9 x10(3)/[facility] LAB[facility]ORY Eos % 3.0 % [facility] Eosinophils Abs 0.2 0.0 - 0.4 x10(3)/[facility] LAB[facility] Basophil % 0.8 % [facility] Baso Absolute 0.0 0.0 - 0.1 x10(3)/[facility] LAB[facility] Immature Gran % 3.80 % [facility] [...] EDGAR HEMATOLOGY ORDERABLE S Performing Organization Address City/[facility]/ZIP Co de Phone Number [facility] [place] [address] * (ABNORMAL) Hemogram (10/19/2018 3:20 PM EDT) [...] [facility] NRBC% auto 0.0 % [facility] NRBC Absolute 0.000 0.000 - 0.000 x10(3)/mc L [facility] Blood specimen (specimen) 10/19/2018 3:20 PM EDT 10/19/2018 3:32 PM EDT Narrative Resulting Agency Comment Spec In Lab Ahsan EDGAR HEMATOLOGY ORDERABLE S [facility] [place] [address] * (ABNORMAL) Basic Metabolic Panel (non-fasting) (10/19/2018 [...] of body mass or the acutely ill. [email or web address] CITYnkf eGFR 28(L) >=60 mL/min/1. 73 m?? [facility] Comment: The eGFR was calculated using the CKD-EPI equation. As with all creatinine based estimates of kidney function, eGFR values calculated with the CKD-EPI equation are not accurate in patients with acute kidney failure, extremes of body mass or the acutely ill. [email or web address] Blood specimen (specimen) 10/19/2018 3:20 PM EDT 10/19/2018 3:32 PM EDT Narrative Resulting Agency Comment Spec In Lab Sinan Patel MD CHEMISTRY ORDERABLES [facility] [address] [place] [address] documented in this encounter Visit Diagnoses Diagnosis [...] Chantale Cazares RN) 825 (Given - Provider: Chantael Cazares RN)1200 (Not Given - Provider: Chantale [...] Intramuscular, EVERY 1 HOUR PRN, Starting on [facility] 10/19/18 at 2008, Until [place] 10/22/18 at 1626, Low blood sugar, For [...] Buccal, EVERY 30 MIN PRN, Starting on [facility] 10/19/18 at 2008, Until [place] 10/22/18 at 1626, Low blood sugar, For [...] Intravenous, EVERY 1 HOUR PRN, Starting on [facility] 10/19/18 at 2008, Until [place] 10/22/18 at 1626, Low blood sugar, For [...] Routine documented in this encounter Care Teams Disposition Clerk Relationship Specialty Start Date End Date Jarad Keller DNP PCP - General Family Medicine 06/05/18 02/09/21 documented as of this encounter
--- OUTSIDE RECORDS SUMMARY | 2024-01-03 16:17 | XMS_ITS | Encounter Summary ---
[place] [address] Care Team Providers Care Typing Bookkeeper Name Role Phone Jarad Keller DNP Primary Care Provider [phone] Encounter Details Date Type Department Care Team (Late st Contact Info) Description 06/21/2018 Telephone [place] [phone] Tamar Smith RN Social History Tobacco Use [...] discuss what was done/ not done at [facility]. Requested some records from them as not [...] on filedocumented in this encounter Care Teams Typing Bookkeeper Relationship Specialty Start Date End Date Jarad Keller DNP PCP - General Family Medicine 06/05/18 02/09/21 documented as of this encounter
--- OUTSIDE RECORDS SUMMARY | 2024-01-03 16:17 | XMS_ITS | Encounter Summary ---
[place] [address] Care Team Providers Care Plugging Machine Operator Name Role Phone Jarad Keller DNP Primary Care Provider [phone] Encounter Details Date Type Department Care Team (Late st Contact Info) Description 07/29/2019 10:20 PM EDT Ancillary Procedure [place] [address] Social History Tobacco Use Types Packs/Day Years [...] Dover MD IMG FILM LIBRARY ORD ERABLES [place], [place] documented in this encounter Visit Diagnoses Not on filedocumented in this encounter Care Teams Plugging Machine Operator Relationship Specialty Start Date End Date Jarad Keller DNP PCP - General Family Medicine 06/05/18 02/09/21 documented as of this encounter
--- OUTSIDE RECORDS SUMMARY | 2024-01-03 16:17 | XMS_ITS | Encounter Summary ---
[place] [address] Care Team Providers Care Planer Tailer Name Role Phone Jarad Keller DNP Primary Care Provider [phone] Encounter Details Date Type Department Care Team (Late st Contact Info) Description 06/21/2018 Orders Only [place] [address] Tamar Smith RN Pre-transplant evaluation for kidney transplant; ESRD (end stage renal disease); ESRD on hemodialysis; Coronary artery disease, angina presence unspecified, unspecified vessel or lesion type, unspecified whether [place] or transplanted heart Social History Tobacco Use [...] unspecified vessel or lesion type, unspecified whether [place] or transplanted heart documented in this encounter Care Teams Planer Tailer Relationship Specialty Start Date End Date Jarad Keller DNP PCP - General Family Medicine 06/05/18 02/09/21 documented as of this encounter
--- OUTSIDE RECORDS SUMMARY | 2024-01-03 16:17 | XMS_ITS | Encounter Summary ---
[place] [address] Care Team Providers Care Wire Mesh Gate Assembler Name Role Phone Jarad Keller DNP Primary Care Provider [phone] Encounter Details Date Type Department Care Team (Late st Contact Info) Description 07/29/2019 10:15 PM EDT Ancillary [place] [address] Social History Tobacco Use Types Packs/Day Years [...] Dover MD IMG FILM LIBRARY ORD ERABLES [place], [place] documented in this encounter Visit Diagnoses Not on filedocumented in this encounter Care Teams Wire Mesh Gate Assembler Relationship Specialty Start Date End Date Jarad Keller DNP PCP - General Family Medicine 06/05/18 02/09/21 documented as of this encounter
--- OUTSIDE RECORDS SUMMARY | 2024-01-03 16:17 | XMS_ITS | Encounter Summary ---
[place] [address] Care Team Providers Care Railroad Watchman Name Role Phone Jarad Keller DNP Primary Care Provider [phone] Encounter Details Date Type Department Care Team (Late st Contact Info) Description 10/19/2018 4:00 PM EDT Tech Visit [place] [address] Mekhi Doss, RVT Social History Tobacco Use [...] filedocumented in this encounter Care Teams Railroad Watchman Relationship Specialty Start Date End Date Jarad Keller DNP PCP - General Family Medicine 06/05/18 02/09/21 documented as of this encounter
--- OUTSIDE RECORDS SUMMARY | 2024-01-03 16:17 | XMS_ITS | Encounter Summary ---
Author Organization [facility] [place] [address] Care Team Providers Care User Experience Analyst Name Role Phone Jarad Keller DNP Primary Care Provider [phone] Encounter Details Date Type Department Care Team (Late st Contact Info) Description 06/08/2018 1:30 PM EST Office Visit [place] [address] Merlene Ferro, [facility] [place] [address] Pre-transplant evaluation for kidney transplant Social History [...] EST TRANSPLANT NUTRITION Initial Transplant Note This curriculum writer met with Maurice GurrolaKaty Ronni a [...] initiated hemodialysis about 2 years ago in [place] and transferred about 2 months ago to [facility] unit Food Record: B -> none [...] means for contact provided. Plan communicated to Tv Production Assistant for Documentation in patient's transplant medical record. Remain available for questions/concerns. documented in this encounter Plan of Treatment Not on file documented as of this encounter Visit Diagnoses Diagnosis Pre-transplant evaluation for kidney transplant Other specified pre-operative examination documented in this encounter Care Teams User Experience Analyst Relationship Specialty Start Date End Date Jarad Keller DNP PCP - General Family Medicine 06/05/18 02/09/21 documented as of this encounter
--- OUTSIDE RECORDS SUMMARY | 2024-01-03 16:17 | XMS_ITS | Encounter Summary ---
Author [place] [address] Care Team Providers Care Body Former Name Role Phone Jarad Keller DNP Primary Care Provider [phone] Encounter Details Date Type Department Care Team (Late st Contact Info) Description 06/08/2018 2:00 PM EST Office Visit [place] [address] Pre-transplant evaluation for kidney transplant Social History [...] this encounter Progress Notes * Tacos Gill, [facility] - 06/08/2018 2:00 PM EST Encounter Date: [...] prescription refills. However, when moving back to [place] from [place], he lost his insurance coverage. He has [...] prescribed and covered since his move to [place] from [place]. He is seeing endocrinology at [facility] in July, and he is [...] be reinstated soon. 3. The need for longterm medication and potential adjustment of medications post-transplant [...] examination documented in this encounter Care Teams Body Former Relationship Specialty Start Date End Date Jarad Keller DNP PCP - General Family Medicine 06/05/18 02/09/21 documented as of this encounter
--- OUTSIDE RECORDS SUMMARY | 2024-01-03 16:17 | XMS_ITS | Encounter Summary ---
[place] [address] Care Team Providers Care Computer Numerical Control Machinist Name Role Phone Jarad Keller DNP Primary Care Provider [phone] Encounter Details Date Type Department Care Team (Late st Contact Info) Description 06/27/2018 Notes Only [place] [address] Tamar Smith RN Social History Tobacco Use [...] on filedocumented in this encounter Care Teams Computer Numerical Control Machinist Relationship Specialty Start Date End Date Jarad Keller DNP PCP - General Family Medicine 06/05/18 02/09/21 documented as of this encounter
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
--- OUTSIDE RECORDS SUMMARY | 2024-01-03 16:17 | XMS_ITS | Encounter Summary ---
[place] [address] Care Team Providers Care Set Painter Name Role Phone Jarad Keller DNP Primary Care Provider [phone] Encounter Details Date Type Department Care Team (Late st Contact Info) Description 07/30/2019 12:25 AM EDT Ancillary Procedure [place] [address] Social History Tobacco Use Types Packs/Day Years [...] exclude potential malignancy. Alternatively, depending on the [id number], this can potentially be reevaluated on clinically-decided [...] below. ? Electronically signed by: Huang Hernandez [facility] ([phone]), at 07/30/2019 2:19 AM Narrative 07/30/2019 2:19 AM EDT EXAMINATION: REQUEST FOR 2ND READ CT HEAD AND SPINE CLINICAL HISTORY: s/p fall; What Modality is the exam? CT Scan; Body Part (please add comments as necessary): Head and C spine; Sending Institution [facility]; Date of exam [id number]; I believe a [...] as necessary): [id number]; I believe a [...] exclude potential malignancy. Alternatively, depending on the [id number], this can potentially be reevaluated on clinically-decided [...] on filedocumented in this encounter Care Teams Set Painter Relationship Specialty Start Date End Date Jarad Keller DNP PCP - General Family Medicine 06/05/18 02/09/21 documented as of this encounter
--- OUTSIDE RECORDS SUMMARY | 2024-01-03 16:17 | XMS_ITS | Encounter Summary ---
[place] [address] Care Team Providers Care Licensed Guide Name Role Phone Jarad Keller DNP Primary Care Provider [phone] Encounter Details Date Type Department Care Team (Late st Contact Info) Description 07/30/2019 12:30 AM EDT Ancillary Procedure [place] [address] Social History Tobacco Use Types Packs/Day Years [...] below. ? Electronically signed by: Huang Hernandez [facility] ([phone]), at 07/30/2019 1:42 AM Narrative 07/30/2019 1:42 AM EDT EXAMINATION: REQUEST FOR 2ND READ CT CHEST ABDOMEN PELVIS CLINICAL HISTORY: s/p fall; What Modality is the exam? CT Scan; Body Part (please add comments as necessary): chest abdomen pelvis; Sending Institution [facility]; Date of exam [id number]; I believe [...] add comments as necessary): chest abdomen pelvis; [facility]; Date of exam [id number]; I believe a [...] filedocumented in this encounter Care Teams Licensed Guide Relationship Specialty Start Date End Date Jarad Keller DNP PCP - General Family Medicine 06/05/18 02/09/21 documented as of this encounter
--- OUTSIDE RECORDS SUMMARY | 2024-01-03 16:17 | XMS_ITS | Encounter Summary ---
[place] [address] Care Team Providers Care Medical Office Specialist Name Role Phone Jarad Keller DNP Primary Care Provider [phone] Encounter Details Date Type Department Care Team (Late st Contact Info) Description 07/29/2019 9:05 PM EDT Ancillary [place] [address] Aaron Dover MD [facility] [place] [address] Social History Tobacco Use Types Packs/Day Years [...] FILM LIBRARY ORD ERABLES Performing Organization Address City/State/[facility] Co de Phone Number [place], [place] documented in this encounter Visit Diagnoses Not on filedocumented in this encounter Care Teams Medical Office Specialist Relationship Specialty Start Date End Date Jarad Keller DNP PCP - General Family Medicine 06/05/18 02/09/21 documented as of this encounter
--- OUTSIDE RECORDS SUMMARY | 2024-01-03 16:17 | XMS_ITS | Encounter Summary ---
[place] [address] Care Team Providers Care Canoe Builder Name Role Phone Jarad Keller DNP Primary Care Provider [phone] Encounter Details Date Type Department Care Team (Late Contact Info) Description 07/21/2018 Telephone [place] [phone] Tamar Smith RN Social History Tobacco Use [...] on filedocumented in this encounter Care Teams Canoe Builder Relationship Specialty Start Date End Date Jarad Keller DNP PCP - General Family Medicine 06/05/18 02/09/21 documented as of this encounter
--- OUTSIDE RECORDS SUMMARY | 2024-01-03 16:17 | XMS_ITS | Encounter Summary ---
Author Organization [facility] [place] [address] Care Team Providers Care Clinical Psychologist Name Role Phone Jarad Keller DANIKA Primary Care Provider [phone] Reason for Referral * Consultation (Routine) - Specialty Diagnoses / Procedures Referred By Puneet hallman Referred To Contact Ophthalmology Diagnoses Type 2 diabetes mellitus with retinopathy, with long-term current use of insulin, macular edema presence unspecified, unspecified laterality, unspecified retinopathy severity Ceasar Roy MD [facility] [address] Gudelia Carter OD [facility] [place] [address] Referral ID Status Reason Start Date Expiration Date V isits Requested Visits Authorized [id number] Consult, Test & Treat 08/18/2018 08/18/2019 1 1 Reason for Visit * Consultation (Routine) - Specialty Diagnoses / Procedures Referred By Contac t Referred To Contact Endocrinology Diagnoses DM TYPE 2, END STAGE RENAL DISEASE Jarad Keller, DNP [address] [place] [address] [facility] Endocrinology [address] [place] [address] Referral ID Status Reason Start Date Expiration Date V isits Requested Visits Authorized [id number] Consult, Test & Treat [facility] 06/05/2018 06/05/2019 6 6 Encounter Details Date Type Department Care Team (Late st Contact Info) Description 08/18/2018 9:00 AM EDT Office Visit [place] [address] Ceasar Roy MD [facility] [place] [address] Type 2 diabetes mellitus with retinopathy, with [...] type 2 diabetes. He recently moved from [place], and since moving to this area DM [...] transplant and has established care with [facility] team. He was told that he needs [...] Relevant surgical history: S/p CABG x2 2015 ([facility], [place]) HD site: [facility] on //Tue 24 dietary recall: Eats two meals daily, sometimes breakfast Breakfast: sausage, eggs Lunch: Peanut butter sandwich Dinner: south korean food Doesn't usually snack Drinks: Diet soda, water Has worked with pan puller in past but did not find it helpful Exercise: not able to exercise much due to hip pain Meter: one touch. 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 ophthalmology given complexity of his retinopathy - medications: restart Vgo 40 and 6 clicks with each meal (12 clicks) 2) HTN: His BP is elevated today but he tells me he runs low at HD, so I will defer potential medication titration to his vp analytics 3) Obesity class II with serious comorbidity - we discussed at length that loss of 5-10% of his body weight would have significant positive impact to improve cardiometabolic risk - encouraged him to increase activity as tolerated to 30 minutes on most days - I strongly recommend referral to weight and wellness center at [facility]. He will discuss with his due to complexity of getting rides to [facility] and let me know if he would like a referral Please do not hesitate to contact me with questions A note will be sent to the referring provider Return to clinic 6-8 weeks Ceasar Roy MD [employer] Teachercircular knitter Endocrinology Section [facility] documented in this encounter Plan [...] present documented in this encounter Care Teams Clinical Psychologist Relationship Specialty Start Date End Date Jarad Keller DNP PCP - General Family Medicine 06/05/18 02/09/21 documented as of this encounter
--- OUTSIDE RECORDS SUMMARY | 2024-01-03 16:17 | XMS_ITS | Encounter Summary ---
[place] [address] Care Team Providers Care Remote Sensing Research Scientist Name Role Phone Jarad Keller DNP Primary Care Provider [phone] Reason for Visit * Reason Onset Date Comments Medication Refill 06/15/2019 Encounter Details Date Type Department Care Team (Late st Contact Info) Description 06/15/2019 Refill [place] [address] Ray Pearl RN Social History Tobacco Use [...] on filedocumented in this encounter Care Teams Remote Sensing Research Scientist Relationship Specialty Start Date End Date Jarad Keller DNP PCP - General Family Medicine 06/05/18 02/09/21 documented as of this encounter
--- OUTSIDE RECORDS SUMMARY | 2024-01-03 16:17 | XMS_ITS | Encounter Summary ---
Author Organization [facility] [place] [place] [address] Care Team Providers Care Vegetable Cutter Name Role Phone Jarad Keller DNP Primary Care Provider [phone] Reason for Visit * Reason Onset Date Comments Medication Refill 06/25/2019 Encounter Details Date Type Department Care Team (Late st Contact Info) Description 06/25/2019 Refill [place] [address] Ceasar Roy MD [facility] [place] [address] Social History Tobacco Use Types Packs/Day Years [...] on filedocumented in this encounter Care Teams Vegetable Cutter Relationship Specialty Start Date End Date Jarad Keller DNP PCP - General Family Medicine 06/05/18 02/09/21 documented as of this encounter
--- OUTSIDE RECORDS SUMMARY | 2024-01-03 16:17 | XMS_ITS | Encounter Summary ---
[place] [address] Care Team Providers Care Vehicle Safety Inspector Name Role Phone Jarad Keller DNP Primary Care Provider [phone] Encounter Details Date Type Department Care Team (Late st Contact Info) Description 07/29/2019 10:25 PM EDT Ancillary Procedure [place] [address] Social History Tobacco Use Types Packs/Day Years [...] Dover MD IMG FILM LIBRARY ORD ERABLES [place], [place] documented in this encounter Visit Diagnoses Not on filedocumented in this encounter Care Teams Vehicle Safety Inspector Relationship Specialty Start Date End Date Jarad Keller DNP PCP - General Family Medicine 06/05/18 02/09/21 documented as of this encounter
--- OUTSIDE RECORDS SUMMARY | 2024-01-03 16:17 | XMS_ITS | Encounter Summary ---
[place] [address] Care Team Providers Care Heavy Equipment Service Manager Name Role Phone Jarad Keller DNP Primary Care Provider [phone] Encounter Details Date Type Department Care Team (Late st Contact Info) Description 06/08/2018 2:30 PM EST Office Visit [place] [address] Tamar Smith RN Pre-transplant evaluation for kidney [...] Required Testing: Up to date Immunizations: Tetanus, oueizgybgq19, Moefidp10, shingles, Hep B series, and yearly flu ([facility] [place]) Healthcare Maintenance: Yearly physical, colonoscopy ([facility] [place]) and BRAULIO Cardiac: EKG and Cardiac stress test every other year while on the wait list ([facility] [place]) Labs: Serologies, ABO, and tissue typing Vascular: [facility] (maybe in [place]) Radiology: Chest X-ray ([facility]) Other testing may be needed based on [...] examination documented in this encounter Care Teams Heavy Equipment Service Manager Relationship Specialty Start Date End Date Jarad Kleler DNP PCP - General Family Medicine 06/05/18 02/09/21 documented as of this encounter
--- OUTSIDE RECORDS SUMMARY | 2024-01-03 16:17 | XMS_ITS | Encounter Summary ---
[place] [address] Care Team Providers Care Manager Wound Name Role Phone Jarad Keller DNP Primary Care Provider [phone] Reason for Visit * Reason Onset Date Comments Prior Authorization 09/29/2018 VGo 40 Encounter Details Date Type Department Care Team (Late st Contact Info) Description 09/29/2018 Telephone [place] [address] Simi Singh hair spinner (VGo 40) Social History Tobacco Use Types [...] coverage on injections Health plan: Medicare Authorizing representative phlebotomy services name: Virgie Faxed to health plan on: 09/29/18 via [facility] Health plan decision: Quantity approved: Authorization number: [...] filedocumented in this encounter Care Teams Manager Wound Relationship Specialty Start Date End Date Jarad Keller DNP PCP - General Family Medicine 06/05/18 02/09/21 documented as of this encounter
--- OUTSIDE RECORDS SUMMARY | 2024-01-03 16:17 | XMS_ITS | Encounter Summary ---
[place] [address] Care Team Providers Care Coating Line Worker Name Role Phone Jarad Keller DNP Primary Care Provider [phone] Encounter Details Date Type Department Care Team (Late st Contact Info) Description 06/27/2018 Telephone [place] [address] Tamar Smith RN Social History Tobacco Use [...] on filedocumented in this encounter Care Teams Coating Line Worker Relationship Specialty Start Date End Date Jarad Keller DNP PCP - General Family Medicine 06/05/18 02/09/21 documented as of this encounter
--- OUTSIDE RECORDS SUMMARY | 2024-01-03 16:17 | XMS_ITS | Encounter Summary ---
[place] [address] Care Team Providers Care Gym Attendant Name Role Phone Jarad Keller DNP Primary Care Provider [phone] Encounter Details Date Type Department Care Team (Late st Contact Info) Description 08/07/2018 Telephone [place] [address] Tamar Smith, RN Social History Tobacco Use [...] on filedocumented in this encounter Care Teams Gym Attendant Relationship Specialty Start Date End Date Jarad Keller DNP PCP - General Family Medicine 06/05/18 02/09/21 documented as of this encounter
--- OUTSIDE RECORDS SUMMARY | 2024-01-03 16:17 | XMS_ITS | Encounter Summary ---
[place] [address] Care Team Providers Care Vice Provost Name Role Phone Jarad Keller DNP Primary Care Provider [phone] Encounter Details Date Type Department Care Team (Late st Contact Info) Description 06/08/2018 12:00 PM EST Office Visit [place] [address] Organ transplant candidate Social History Tobacco Use [...] Hernández - 06/08/2018 12:00 PM EST Transplant Thermoplastic Technician Note: Met with patient during the Kidney Class appointment to review medical and pharmacy benefits for transplant services. He is covered by Medicare A, B, and D ([facility]). He does not have a secondary plan [...] None ( Medicaid applied for) Pharmacy Carrier: [facility] (level 1 LIS extra help copays $3.60 [...] status documented in this encounter Care Teams Vice Provost Relationship Specialty Start Date End Date Jarad Keller DNP PCP - General Family Medicine 06/05/18 02/09/21 documented as of this encounter
--- OUTSIDE RECORDS SUMMARY | 2024-01-03 16:17 | XMS_ITS | Encounter Summary ---
[place] [address] Care Team Providers Care Tripe Scraper Name Role Phone Jarad Keller DNP Primary Care Provider [phone] Encounter Details Date Type Department Care Team (Late st Contact Info) Description 07/29/2019 9:10 PM EDT Ancillary Procedure [place] [address] Aaron Dover MD [facility] [place] [address] Social History Tobacco Use Types Packs/Day Years [...] FILM LIBRARY ORD ERABLES Performing Organization Address City/State/[facility] Co de Phone Number [place], [place] documented in this encounter Visit Diagnoses Not on filedocumented in this encounter Care Teams Tripe Scraper Relationship Specialty Start Date End Date Jarad Keller DNP PCP - General Family Medicine 06/05/18 02/09/21 documented as of this encounter
--- OUTSIDE RECORDS SUMMARY | 2024-01-03 16:17 | XMS_ITS | Encounter Summary ---
[place] [address] Care Team Providers Care Corporate Travel Coordinator Name Role Phone Jarad Keller DNP Primary Care Provider [phone] Encounter Details Date Type Department Care Team (Late st Contact Info) Description 06/08/2018 Orders Only [place] [address] Tamar Smith RN Pre-transplant evaluation for kidney [...] EST) Hemoglobin 12.5(L) 13.7 - 16.5 gm/dL [facility] Hematocrit 35.4(L) 40.5 - 48.5 % [facility] Blood specimen (specimen) 06/08/2018 3:29 PM EST 06/08/2018 3:34 PM EST Narrative Resulting Agency Comment Spec In Lab Young Watts MD HEMATOLOGY ORDERA BLES Performing Organization Address City/[facility]/ZIP Co de Phone Number [facility] [place] [address] * (ABNORMAL) Fructosamine (06/08/2018 3:29 PM EST) Fructosamine (AUGUST) 538(H) 200 - 285 mcmol/L [facility] Comment: Test Performed by: [address] [address] Blood specimen (specimen) 06/08/2018 3:29 PM EST 06/09/2018 8:46 AM EST Narrative Resulting Agency Comment Spec In Lab Young Watts MD LAB SEND OUT JAY BEVERLY Performing Organization Address City/[facility] Co de Phone Number 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
--- OUTSIDE RECORDS SUMMARY | 2024-01-03 16:18 | XMS_ITS | Encounter Summary ---
Author Organization [facility] [place] [address] Care Team Providers Care Stna Name Role Phone Ej Duran MD Primary Care Provider [phone] Reason for Visit * Reason Comments Post Op Repair of Tractional Detachment OD/ PDR OU Encounter Details Date Type Department Care Team (Late st Contact Info) Description 02/01/2013 2:00 PM EDT Office [place] [address] Matteo Diane MD [facility] [place] [address] Hyperopia; Proliferative diabetic retinopathy, both eyes; Ocular [...] hypertension documented in this encounter Care Teams Stna Relationship Specialty Start Date End Date Ej Duran MD [address] [place] [address] PCP - General 10/28/11 06/04/18 documented as of this encounter
--- OUTSIDE RECORDS SUMMARY | 2024-01-03 16:18 | XMS_ITS | Encounter Summary ---
Author Organization [facility] [place] [address] Care Team Providers Care Entry Level Web Developer Name Role Phone Ej Duran MD Primary Care Provider [phone] Reason for Visit * Reason Onset Date Comments Questions 02/22/2013 pt was told by monse olivas that dmm appointments were not needed Encounter Details Date Type Department Care Team ([facility] st Contact Info) Description 02/22/2013 [place] [address] Erasmo Bajwa MD [facility] [place] [address] Questions (pt was told by clemente that [...] on filedocumented in this encounter Care Teams Entry Level Web Developer Relationship Specialty Start Date End Date Ej Duran MD [address] [place] [address] PCP - General 10/28/11 06/04/18 documented as of this encounter
--- OUTSIDE RECORDS SUMMARY | 2024-01-03 16:18 | XMS_ITS | Encounter Summary ---
Author Organization [facility] [place] [address] Care Team Providers Care Button Station Worker Name Role Phone Ej Duran MD Primary Care Provider [phone] Reason for Visit * Reason Comments Hyperopia 6 week follow up Diabetes BS was 180 as of yes terday AM Encounter Details Date Type Department Care Team (Late st Contact Info) Description 05/08/2013 2:15 PM EST Office Visit [place] [address] Matteo Diane MD [facility] [address] [place] [address] Proliferative diabetic retinopathy, both eyes (Primary Dx) [...] uncontrolled documented in this encounter Care Teams Button Station Worker Relationship Specialty Start Date End Date Ej Duran MD [address] [place] [address] PCP - General 10/28/11 06/04/18 documented as of this encounter
--- OUTSIDE RECORDS SUMMARY | 2024-01-03 16:18 | XMS_ITS | Encounter Summary ---
Author Organization [facility] [place] [address] Care Team Providers Care Ekg Manager Name Role Phone Ej Duran MD Primary Care Provider [phone] Reason for Visit * Reason Comments Blurred Vision Patient presents for postoperative evaluation after complex vitrectomy right eye. Indicates his vision in the right eye is stable but perhaps worse at night. Vision in the left eye is also becoming worse. Matteo Diane M.D. Encounter Details Date Type Department Care Team (Late Contact [facility]) Description 10/31/2012 12:45 PM EDT [place] [address] Matteo Diane MD [facility] DR [place] [address] Proliferative diabetic retinopathy, both eyes. Severe and [...] EDT November 01, 2012 Erasmo Bajwa M.D. [address] [place] [address], [place] [address] Dear Erasmo, I would like to introduce [...] cataract documented in this encounter Care Teams Ekg Manager Relationship Specialty Start Date End Date Ej Duran MD [address] [place] [address] PCP - General 10/28/11 06/04/18 documented as of this encounter
--- OUTSIDE RECORDS SUMMARY | 2024-01-03 16:18 | XMS_ITS | Encounter Summary ---
Author Organization [facility] [place] [address] Care Team Providers Care Wood Repatcher Name Role Phone jE Duran MD Primary Care Provider [phone] Reason for Visit * Reason Comments Pseudophakia 1 week s/p YAG CAP O S done 11/15/2013 Encounter Details Date Type Department Care Team (Late st Contact Info) Description 11/23/2013 12:45 PM EDT Office [place] [address] Erasmo Bajwa MD [facility] [place] [address] PCO (posterior capsular opacification), left (Primary Dx) [...] unspecified documented in this encounter Care Teams Wood Repatcher Relationship Specialty Start Date End Date Ej Duran MD [address] [place] [address] PCP - General 10/28/11 06/04/18 documented as of this encounter
--- OUTSIDE RECORDS SUMMARY | 2024-01-03 16:18 | XMS_ITS | Encounter Summary ---
Author Organization [facility] [place] [address] Care Team Providers Care Pourer Off Name Role Phone Ej Duran MD Primary Care Provider [phone] Reason for Visit * Reason Comments Post Op Encounter Details Date Type Department Care Team (Late st Contact Info) Description 08/22/2012 3:45 PM EDT Office [place] [address] Matteo Diane MD [facility] [address] [place] [address] Acute angle-closure glaucoma of right eye (Primary [...] Hypermetropia documented in this encounter Care Teams Pourer Off Relationship Specialty Start Date End Date Ej Duran MD [address] [place] [address] PCP - General 10/28/11 06/04/18 documented as of this encounter
--- OUTSIDE RECORDS SUMMARY | 2024-01-03 16:18 | XMS_ITS | Encounter Summary ---
Author Organization [facility] [address] Care Team Providers Care Railway Switch Operator Name Role Phone Ej Duran MD Primary Care Provider [phone] Reason for Visit * Reason Comments Eye Problem PT STATES HERE FOR E RACHEL OF PAIN OD, Encounter Details Date Type Department Care Team (Late st Contact Info) Description 02/19/2013 2:30 PM EDT Office Visit [place] [address] Young Duff MD [facility] [place] [address] Eye pain; Proliferative diabetic retinopathy, both eyes [...] for instructions. Please call the eye clinic, [phone], for any significant changes in vision, new [...] uncontrolled documented in this encounter Care Teams Railway Switch Operator Relationship Specialty Start Date End Date Ej Duran MD [address] [place] [address] PCP - General 10/28/11 06/04/18 documented as of this encounter
--- OUTSIDE RECORDS SUMMARY | 2024-01-03 16:18 | XMS_ITS | Encounter Summary ---
[place] [address] Care Team Providers Care Director It Name Role Phone Ej Duran MD Primary Care Provider [phone] Reason for Visit * Reason Comments Procedure YAG CAP OS Encounter Details Date Type Department Care Team (Latest Contact Info) Description 11/15/2013 12:30 PM EDT Procedure [place] [address] Erasmo Bajwa MD [facility] [place] [address] PCO (posterior capsular opacification), left (Primary Dx) [...] unspecified documented in this encounter Care Teams Director It Relationship Specialty Start Date End Date Ej Duran MD [address] [place] [address] PCP - General 10/28/11 06/04/18 documented as of this encounter
--- OUTSIDE RECORDS SUMMARY | 2024-01-03 16:18 | XMS_ITS | Encounter Summary ---
Author Organization [facility] [place] [address] Care Team Providers Care Credentialer Name Role Phone Ej Duran MD Primary Care Provider [phone] Reason for Visit * Reason Comments Blurred Vision The patient presents for postoperative evaluation of the right eye. ESTRELLA Hardy Encounter Details Date Type Department Care Team (Late st Contact Info) Description 10/10/2012 1:00 PM EDT [place] [address] Matteo Daine MD [facility] [place] [address] Vitreous hemorrhage, right eye (Primary Dx); Proliferative [...] glaucoma documented in this encounter Care Teams Credentialer Relationship Specialty Start Date End Date Ej Duran MD [address] [place] [address] PCP - General 10/28/11 06/04/18 documented as of this encounter
--- OUTSIDE RECORDS SUMMARY | 2024-01-03 16:18 | XMS_ITS | Encounter Summary ---
[place] [address] Care Team Providers Care Product Support Sales Representative Name Role Phone Ej Duran MD Primary Care Provider [phone] Encounter Details Date Type Department Care Team (Late st Contact Info) Description 05/15/2018 Telephone [place] [address] Tamar Smith RN Social History Tobacco Use [...] INSERTION performed by Erasmo Bajwa MD at [facility] ??? PRO REMV CATARACT EXTRACAP,INSERT LENS,COMP 07/18/2012 ? ? PRO REPAIR COMPLEX RETINA DETACH VITRECTOMY & MEMB PEEL 04/03/2012, 04/03/12 REPAIR COMPLEX RETINAL DETACHMENT, W/ VITRECTOMY, MEMBRANE PEELING performed by Matteo Diane MD at [facility] ? ? PRO REPAIR COMPLEX RETINA DETACH VITRECTOMY & MEMB PEEL 07/31/2012 REPAIR COMPLEX RETINAL DETACHMENT, W/ VITRECTOMY, MEMBRANE PEELING performed by Matteo Diane MD at [facility] ? ? PRO REPAIR COMPLEX RETINA DETACH VITRECTOMY & MEMB PEEL 01/08/2013 REPAIR COMPLEX RETINAL DETACHMENT, W/ VITRECTOMY, MEMBRANE PEELING performed by Matteo Diane MD at [facility] ??? PRO TX EXTENSIVE [...] on filedocumented in this encounter Care Teams Product Support Sales Representative Relationship Specialty Start Date End Date Ej Duran MD [address] [place] [address] PCP - General 10/28/11 06/04/18 documented as of this encounter
--- OUTSIDE RECORDS SUMMARY | 2024-01-03 16:18 | XMS_ITS | Encounter Summary ---
Author Organization [facility] [place] [address] Care Team Providers Care Wire Basket Maker Name Role Phone Ej Duran MD Primary Care Provider Reason for Visit * Reason Comments Post Op Patient is postop da y one status post repair of tractional detachment and removal of retained lens material. ESTRELLA Hardy Encounter Details Date Type Department Care Team (Late st Contact Info) Description 08/01/2012 10:00 AM EDT Office [place] [address] Matteo Diane MD [facility] DR [place] [address] Retinal detachment, tractional, right eye. Postoperative day [...] hypertension documented in this encounter Care Teams Wire Basket Maker Relationship Specialty Start Date End Date Ej Duran MD [address] [place] [address] PCP - General 10/28/11 06/04/18 documented as of this encounter
--- OUTSIDE RECORDS SUMMARY | 2024-01-03 16:18 | XMS_ITS | Encounter Summary ---
Author Organization [facility] [place] [address] Care Team Providers Care President Ceo & Founder Name Role Phone Ej Duran MD Primary Care Provider [phone] Reason for Visit * Reason Comments Post Op [address] re pair Encounter Details Date Type Department Care Team (Late st Contact Info) Description 01/15/2013 11:15 AM EDT Office [place] [address] Matteo Diane MD [facility] [address] [place] [address] Acute angle-closure glaucoma of right eye; Diabetes [...] uncontrolled documented in this encounter Care Teams President Ceo & Founder Relationship Specialty Start Date End Date Ej Duran MD [address] [place] [address] PCP - General 10/28/11 06/04/18 documented as of this encounter
--- OUTSIDE RECORDS SUMMARY | 2024-01-03 16:18 | XMS_ITS | Encounter Summary ---
Author Organization [facility] [place] [address] Care Team Providers Care Program Trainer Name Role Phone Ej Duran MD Primary Care Provider [phone] Reason for Visit * Reason Comments Blurred Vision Patient presents for postoperative evaluation. CBC in Encounter Details Date Type Department Care Team (Late st Contact Info) Description 09/12/2012 3:45 PM EDT [place] [address] Matteo Diane MD [facility] DR [place]AL[place] [address] Proliferative diabetic retinopathy, both eyes (Primary Dx); [...] glaucoma documented in this encounter Care Teams Program Trainer Relationship Specialty Start Date End Date Ej Duran MD [address] [place] [address] PCP - General 10/28/11 06/04/18 documented as of this encounter
--- OUTSIDE RECORDS SUMMARY | 2024-01-03 16:18 | XMS_ITS | Encounter Summary ---
Author Organization [facility] [place] [address] Care Team Providers Care Senior Stack Engineer Name Role Phone Ej Duran MD Primary Care Provider [phone] Reason for Visit * Reason Comments Post Op 3 wk ck s/p repair o f tractional detachment and removal of retained lens material OD 07/31/12 Encounter Details Date Type Department Care Team (Late st Contact Info) Description 08/22/2012 2:00 PM EDT Office [place] [address] Rylan Gasca MD [facility] [place] [address] Acute angle-closure glaucoma (Primary Dx) Discharge Disposition: [...] Primary documented in this encounter Care Teams Senior Stack Engineer Relationship Specialty Start Date End Date Ej Duran MD [address] [place] [address] PCP - General 10/28/11 06/04/18 documented as of this encounter
--- OUTSIDE RECORDS SUMMARY | 2024-01-03 16:18 | XMS_ITS | Encounter Summary ---
Author Organization [facility] [place] [place] [address] Care Team Providers Care Dietary Clerk Name Role Phone Ej Duran MD Primary Care Provider [phone] Encounter Details Date Type Department Care Team (Late st Contact Info) Description 11/29/2012 12:00 PM EDT - 11/29/2012 12:40 PM EDT Surgery [facility] [place] [address] Gabe Bajwa MD [facility] [place] [address] CATARACT EXTRACTION, EXTRACAPSULAR, W/ LENS INSERTION (WRVU [...] or additional concerns or questions please call: [phone] 8am to5pm. After 5pm, please call [phone] and ask for opthalmology MD acute care surgeon. documented in this encounter Medications at Time [...] operative team. Monitors were placed by the tour operator. Topical anaesthetic was placed in the left [...] emulsified with the phacoemulsification handpiece in a xxvddf-uvb-bnvimyk fashion. Residual cortical material was removed with the automated irrigation/aspiration unit. The posterior capsule was polished. The capsular bag was inflated with viscoelastic. An Olayinka Model SN60WF posterior chamber lens with a 6mm acrylic optic was inspected and found to be without defects, placed in the [place] II jr. java developer cartridge, and injected into the capsular bag [...] RN) documented in this encounter Care Teams Dietary Clerk Relationship Specialty Start Date End Date Ej Duran MD [address] [place] [address] PCP - General 10/28/11 06/04/18 documented as of this encounter
--- OUTSIDE RECORDS SUMMARY | 2024-01-03 16:18 | XMS_ITS | Encounter Summary ---
[place] [address] Care Team Providers Care Distance Learning Administrator Name Role Phone Ej Duran MD Primary Care Provider [phone] Reason for Visit * Reason Onset Date Comments Questions 03/01/2013 Encounter Details Date Type Department Care Team (Late st Contact Info) Description 03/01/2013 [place] [address] Matteo Diane MD [facility] DR [place] [address] Questions Social History Tobacco Use Types Packs/Day [...] checking on prior authorization for Ketrolac. [facility] [place] said they faxed request today. Advised patient, will forward to Dr. Diane's administrative assistant receptionist for follow up * Telephone Encounter - Maddy West - 03/01/2013 1:55 PM EDT Maurice Rudolph is a 52 y.o. male Patient called to check to see if we have received the prior authorization paperwork for the eyedrop (mabry top) he needs refilled at [facility] in [place], [place] [phone]; please call patient at [phone] documented in this encounter Plan of Treatment Not on file documented as of this encounter Visit Diagnoses Diagnosis Acute angle-closure glaucoma of right eye. History of angle-closure after silicone oil placement when patient was phakic. Acute angle-closure glaucoma Eye pain Pain in or around eye documented in this encounter Care Teams Distance Learning Administrator Relationship Specialty Start Date End Date jE Duran MD [address] [place] [address] PCP - General 10/28/11 06/04/18 documented as of this encounter
--- OUTSIDE RECORDS SUMMARY | 2024-01-03 16:18 | XMS_ITS | Encounter Summary ---
Author Organization [facility] [place] [address] Care Team Providers Care Supervisor Corduroy Cutting Name Role Phone Ej Duran MD Primary Care Provider [phone] Encounter Details Date Type Department Care Team (Late st Contact Info) Description 07/31/2012 7:30 AM EDT - 07/31/2012 8:28 AM EDT Surgery [place] [address] Ruthann Beckett MD [facility] [place] [address] REPAIR COMPLEX RETINAL DETACH W/VITRECTOMY, MEMBRANE PEELING, [...] all eye drops to tomorrow's appointment. Call [phone] for all questions concerns. Right side down [...] Beckett MD - 07/31/2012 9:00 AM EDT [facility] Operative Note Patient Name: Maurice Rudolph : [id number] MR#: [id number] Case Date: 07/31/2012 Surgeon: Surgeon(s) and Role: [...] at this time. Please note also the kayluyft-jh-tszoiqvb time was from 7:55 a.m. exactly until 8:55 a.m. The patient will return here postoperative day #1. He is to lie on the right side. Airway safety and venous thrombosis prevention measures will be reviewed again in the postoperative setting. He is to call the eye physician sound controller the overnight period if there are any [...] Operative Note Patient Name: Maurice Rudolph : [id number] MR#: [id number] Case Date: 07/31/2012 Surgeon: Surgeon(s) and Role: [...] * POCT Glucose (07/31/2012 9:09 AM EDT) [facility] Signature Glucose, POC 181 60 - 199 mg/dL [facility] Comment: Supplemental ranges: <110 mg/dL before [...] CARE T EST ORDERABLES Performing Organization Address [facility] Co de Phone Number BERHANE CASTRO documented [...] Given 07/31/2012 7:10 AM EDT 1 drop cinmxdhb-wsztgyypd-bdmjxpaxumjdw (DEXACINE) 3.5-10,000-0.1 mg-unit/g-% ophthalmic ointment ONCE PRN, [...] Beckett MD - Comment: mixed with bupivacaine) lvuflirs-qymmbqkit-dzjqlpkprjed e (DEXACINE) 3.5-10,000-0.1 mg-unit/g-% ophthalmic ointment (CANCELED) [...] cefazolin) documented in this encounter Care Teams Supervisor Corduroy Cutting Relationship Specialty Start Date End Date Ej Duran MD [address] [place] [address] PCP - General 10/28/11 06/04/18 documented as of this encounter
--- OUTSIDE RECORDS SUMMARY | 2024-01-03 16:18 | XMS_ITS | Encounter Summary ---
Author Organization [facility] [place] [address] Care Team Providers Care Community Theater Actor Name Role Phone Ej Duran MD Primary Care Provider [phone] Encounter Details Date Type Department Care Team (Late st Contact Info) Description 01/08/2013 7:31 AM EDT Anesthesia Event [place] [address] Alissa Muse MD [facility] [place] [address] Mariajose Wilkinson MD [facility] [place] [address] Anesthesia Record Procedure Summary Procedure Name Responsible [...] PEELING performed by Matteo Diane MD at [facility] ??? Peripheral iridotomy 04/06/2012 [...] PEELING performed by Matteo Diane MD at [facility] ??? Remv cataract extracap,insert lens,comp 07/18/2012 ??? Remv cataract extracap,insert lens 11/29/2012 CATARACT EXTRACTION, EXTRACAPSULAR, W/ LENS INSERTION performed by Erasmo Bajwa MD at [facility] ??? Cataract removal 07/18/12 OD Swendris [...] discussed with patient. Plan discussed with attending. [facility] [place], [place]. Assessment: documented in this encounter Plan of [...] mg documented in this encounter Care Teams Community Theater Actor Relationship Specialty Start Date End Date Ej Duran MD [address] [place] [address] PCP - General 10/28/11 06/04/18 documented as of this encounter
--- OUTSIDE RECORDS SUMMARY | 2024-01-03 16:18 | XMS_ITS | Encounter Summary ---
Author Organization [facility] [place] [address] Care Team Providers Care Sole Filler Name Role Phone Ej Duran MD Primary Care Provider [phone] Encounter Details Date Type Department Care Team (Latest Contact Info) Description 11/29/2012 10:18 AM EDT - 11/29/2012 12:58 PM EDT Hospital Encounter Outpatient [place] [address] Gabe Bajwa MD [facility] [place] [address] Cataract (Primary Dx) Discharge Disposition: Home Social [...] or additional concerns or questions please call: [phone] 8am to5pm. After 5pm, please call [phone] and ask for opthalmology MD marine extension agent. documented in this encounter Medications at Time [...] operative team. Monitors were placed by the associate music professor. Topical anaesthetic was placed in the left [...] emulsified with the phacoemulsification handpiece in a rxbjtr-zga-iwcvwwk fashion. Residual cortical material was removed with the automated irrigation/aspiration unit. The posterior capsule was polished. The capsular bag was inflated with viscoelastic. An Olayinka Model SN60WF posterior chamber lens with a 6mm acrylic optic was inspected and found to be without defects, placed in the [place] II sign erector and repairer cartridge, and injected into the capsular bag [...] er: Makenzie Viramontes RN)1105 (Given - Provider: Mkaenzie Viramontes RN)1110 (Given - Provider: Makenzie Viramontes [...] RN) documented in this encounter Care Teams Sole Filler Relationship Specialty Start Date End Date Ej Duran MD [address] [place] [address] PCP - General 10/28/11 06/04/18 documented as of this encounter
--- OUTSIDE RECORDS SUMMARY | 2024-01-03 16:18 | XMS_ITS | Encounter Summary ---
Author Organization [facility] [place] [address] Care Team Providers Care Automatic Casting Machine Operator Name Role Phone Ej Duran MD Primary Care Provider [phone] Encounter Details Date Type Department Care Team (Late st Contact Info) Description 01/08/2013 6:08 AM EDT - 01/08/2013 11:34 AM EDT Hospital En[place] [address] Ruthann Beckett MD [facility] [place] [address] Discharge Disposition: Home Social History Tobacco Use [...] all eye drops to tomorrow's appointment. Call [phone] for all questions concerns. Left side down [...] Beckett MD - 01/08/2013 9:38 AM EDT [facility] Operative Note Patient Name: Maurice Rudolph : [id number] MR#: [id number] Case Date: 01/08/2013 Surgeon: Surgeon(s) and Role: * Ruthann Beckett MD - Primary * Lesli Vo PA - Physician Curriculum Developer 8:10-9:38=1h 28m SURGICAL STAFF/ASSISTANTS RUTHANN Giordano. Neo [...] capsulectomy with lysis of iris adhesions with scientologist of normal configuration of pupil. OPERATIVE INDICATIONS: [...] and fibrosis was easily dissected with good scientologist of pupil margin contour. This now provided [...] Operative Note Patient Name: Maurice Rudolph : [id number] MR#: [id number] Case Date: 01/08/2013 Surgeon: Surgeon(s) and Role: * Ruthann Beckett MD - Primary * Lesli Vo PA - Physician Curriculum Developer Preoperative diagnosis: RETINAL DETACHMENT Postoperative diagnosis: RETINAL [...] Glucose, POC 111 60 - 199 mg/dL [facility] Comment: Supplemental ranges: <110 mg/dL before meals <200 mg/dL all other times of the day Blood specimen (specimen) 01/08/2013 9:58 AM EDT 01/08/2013 9:58 AM EDT Ruthann Beckett MD POINT OF CARE T EST ORDERABLES Performing Organization Address [facility] Co de Phone Number [facility] * POCT Glucose (01/08/2013 7:19 AM EDT) Glucose, POC 119 60 - 199 mg/dL [facility] Comment: Supplemental ranges: <110 mg/dL before meals <200 mg/dL all other times of the day Blood specimen (specimen) 01/08/2013 7:19 AM EDT 01/08/2013 7:19 AM EDT Ruthann Beckett MD POINT OF CARE T EST ORDERABLES Performing Organization Address [facility] Co de Phone Number [facility] documented in this encounter Visit [...] (Given - Provid er: Ruthann Beckett MD) cggmbvyz-iigqtdlkq-zyhcwkoppqzl e (DEXACINE) 3.5-10,000-0.1 mg-unit/g-% ophthalmic ointment (CANCELED) [...] RN) documented in this encounter Care Teams Automatic Casting Machine Operator Relationship Specialty Start Date End Date Ej Duran MD [address] [place] [address] PCP - General 10/28/11 06/04/18 documented as of this encounter
--- OUTSIDE RECORDS SUMMARY | 2024-01-03 16:18 | XMS_ITS | Encounter Summary ---
Author Organization [facility] [place] [address] Care Team Providers Care Chicken Dresser Name Role Phone Ej Duran MD Primary Care Provider [phone] Reason for Visit * Reason Comments Diabetes 1-wk f/u for PDR-OU Encounter Details Date Type Department Care Team (Late st Contact Info) Description 12/04/2013 1:00 PM EDT Follow-[place] [address] Matteo Diane MD [facility] [place] [address] Proliferative diabetic retinopathy, both eyes, type 1, [...] Next month, he will be moving to [place]. When he secures a retina specialist, he [...] Primary documented in this encounter Care Teams Chicken Dresser Relationship Specialty Start Date End Date Ej Duran MD [address] [place] [address] PCP - General 10/28/11 06/04/18 documented as of this encounter
--- OUTSIDE RECORDS SUMMARY | 2024-01-03 16:18 | XMS_ITS | Encounter Summary ---
Author Organization [facility] [place] [address] Care Team Providers Care Hl7 Interface Developer Name Role Phone Ej Duran MD Primary Care Provider [phone] Reason for Visit * Reason Comments Decreased Visual Acuity Sent by Dr. Jaden velez to evaluate need for possible YAG Capsulotomy OS Encounter Details Date Type Department Care Team (Late st Contact Info) Description 10/03/2013 3:45 PM EDT [place] [address] Erasmo Bajwa MD [facility] [place] [address] PCO (posterior capsular opacification), left (Primary Dx); [...] means documented in this encounter Care Teams Hl7 Interface Developer Relationship Specialty Start Date End Date Ej Duran MD [address] [place] [address] PCP - General 10/28/11 06/04/18 documented as of this encounter
--- OUTSIDE RECORDS SUMMARY | 2024-01-03 16:18 | XMS_ITS | Encounter Summary ---
Author Organization Formerly [facility] [address] Care Team Providers Care Sheet Rock Finisher Name Role Phone Jarad Keller DNP Primary Care Provider [phone] Encounter Details Date Type Department Care Team (Late st Contact Info) Description 06/08/2018 11:30 AM EST Office Visit [place] [address] Derrick Watts MD [facility] [place] [address] Pre-transplant evaluation for kidney transplant; Stage 5 [...] the patient received their treatment from is: [place], [place] ? 2016 Previously lwait listed at [facility] Reason for referral: Evaluation for [...] up!!; 6 months ago stress test at [facility] Seborrhea Edentulous Balance problems uses cane Morbid obesity BMI near 38 Past Surgical History: Procedure Laterality Date ??? CATARACT EXTRACTION, EXTRACAPSULAR, W/ LENS INSERTION 11/29/12 OS - DMM ??? CATARACT REMOVAL 07/18/12 OD Swendris ??? PERIPHERAL IRIDOTOMY 04/06/2012 OD Swendris ??? PRO REMV CATARACT EXTRACAP,INSERT LENS 11/29/2012 CATARACT EXTRACTION, EXTRACAPSULAR, W/ LENS INSERTION performed by Erasmo Bajwa MD at [facility] ??? PRO REMV CATARACT EXTRACAP,INSERT LENS,COMP 07/18/2012 ? ? PRO REPAIR COMPLEX RETINA DETACH VITRECTOMY & MEMB PEEL 04/03/2012, 04/03/12 REPAIR COMPLEX RETINAL DETACHMENT, W/ VITRECTOMY, MEMBRANE PEELING performed by Matteo Diane MD at [facility] MAIN OR ? ? PRO REPAIR COMPLEX RETINA DETACH VITRECTOMY & MEMB PEEL 07/31/2012 REPAIR COMPLEX RETINAL DETACHMENT, W/ VITRECTOMY, MEMBRANE PEELING performed by Matteo Diane MD at [facility] MAIN OR ? ? PRO REPAIR COMPLEX RETINA DETACH VITRECTOMY & MEMB PEEL 01/08/2013 REPAIR COMPLEX RETINAL DETACHMENT, W/ VITRECTOMY, MEMBRANE PEELING performed by Matteo Diane MD at [facility] MAIN OR ??? PRO TX EXTENSIVE RETINOPATHY, [...] Hx ??? 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 Neurological: No asymmetries, DTRs or risk modeler Skin: no active lesions Assessment: Mr. Maurice [...] 90 Minutes in direct face to face funeral counselor. DERRICK WATTS MD documented in this encounter [...] for kidney transplant HIV SCREEN, 4TH GENERATION ([facility]/CGP/APD/NLH) Routine 06/08/2018 3:29 PM EST Pre-transplant evaluation [...] evaluation for kidney transplant TYPE AND SCREEN ([facility]/CGP/GAMALIEL) Routine 06/08/2018 3:29 PM EST Pre-transplant evaluation [...] 3:29 PM EST) Ab Screen Interp Negative [facility] Expires at [id number] on: 06/11/2018 [facility] Blood specimen (specimen) 06/08/2018 3:29 PM EST 06/08/2018 3:37 PM EST Narrative Resulting Agency Comment Spec In Lab Derrick Watts MD BLOOD BANK LAB OR DERABLES Performing Organization Address City/[facility]/ZIP Co de Phone Number [facility] [place] [place] [address] * ABO/Rh Typing (06/08/2018 3:29 PM EST) Pathologist [facility] ABORH Type A Pos [facility] Blood specimen (specimen) 06/08/2018 3:29 PM EST 06/08/2018 3:37 PM EST Narrative Resulting Agency Comment Spec In Lab Derrick Watts MD BLOOD BANK LAB OR DERABLES Performing Organization Address [facility]/ZIP Co de Phone Number [facility] [place] [address] * (ABNORMAL) Hemoglobin and Hematocrit, blood (06/08/2018 3:29 PM EST) Hemoglobin 12.5(L) 13.7 - 16.5 gm/dL [facility] Hematocrit 35.4(L) 40.5 - 48.5 % [facility] Blood specimen (specimen) 06/08/2018 3:29 PM EST 06/08/2018 3:34 PM EST Narrative Resulting Agency Comment Spec In Lab Derrick Watts MD HEMATOLOGY ORDERA BLES Performing Organization Address [facility] Co de Phone Number [facility] [place] [address] * (ABNORMAL) Fructosamine (06/08/2018 3:29 PM EST) Fructosamine (AUGUST) 538(H) 200 - 285 mcmol/L [facility] Comment: Test Performed by: [address] [id number] Blood specimen (specimen) 06/08/2018 3:29 PM EST 06/09/2018 8:46 AM EST Narrative Resulting Agency Comment Spec In Lab Derrick Watts MD LAB SEND OUT ORDToma RABJERARDO Performing Organization Address [facility] Co de Phone Number [facility] [place] [place] [address] * (ABNORMAL) C-peptide (06/08/2018 3:29 PM EST) Pathologist [facility] C-Peptide 11.0(H) 0.8 - 5.2 ng/mL [facility] Blood specimen (specimen) 06/08/2018 3:29 PM EST 06/08/2018 3:34 PM EST Narrative Resulting Agency Comment Spec In Lab Derrick Watts MD CHEMISTRY ORDERAB LES Performing Organization Address [facility] Co de Phone Number [facility] [place] [place] [address] * PSA (06/08/2018 3:29 PM EST) Prostate Specific Antigen (Ultrasensitiv e) 0.80 0.00 - 4.00 ng/mL [facility] Blood specimen (specimen) 06/08/2018 3:29 PM EST 06/08/2018 3:34 PM EST Narrative Resulting Agency Comment Spec In Lab Derrick Watts MD CHEMISTRY ORDERAB LES [facility] [place] [address] * (ABNORMAL) Hemoglobin A1c (06/08/2018 3:29 PM EST) Hemoglobin A1c 11.2(H) 4.3 - 5.6 % [facility] Comment: Reference Range: 4.3 [...] Mellitus, Diabetes Care 2013; 36: Suppl. 1, S67-08 Estimated Average Glucose 275 mg/dL [facility] Comment: eAG equivalents for [...] into estimated average glucose values. ??Diabetes Care 2008:31(8):4414-4427. Blood specimen (specimen) 06/08/2018 3:29 PM EST 06/08/2018 3:34 PM EST Narrative Resulting Agency Comment Spec In Lab Derrick Watts MD CHEMISTRY ORDERAB LES Performing Organization Address [facility] de Phone Number [facility] [place] [place] [address] * Varicella zoster Antibody, IgG (06/08/2018 3:29 PM EST) Varicella Zoster Antibody IgG Pos [facility] Blood specimen (specimen) 06/08/2018 3:29 PM EST 06/09/2018 7:28 AM EST Narrative Resulting Agency Comment Spec In Lab Derrick Watts MD IMMUNOLOGY ORDERA BLES Performing Organization Address [facility] Phone Number [facility] [place] [address] * (ABNORMAL) Toxoplasma Antibody, IgG (06/08/2018 3:29 PM EST) Toxoplasma Antibody IgG Positive( A) Negative [facility] Blood specimen (specimen) 06/08/2018 3:29 PM EST 06/09/2018 7:28 AM EST Narrative Resulting Agency Comment Spec In Lab Derrick Watts MD IMMUNOLOGY ORDERA BLES Performing Organization Address [facility] de Phone Number [facility] [place] [place] [address] * Syphilis Screening Antibody with reflex RPR (06/08/2018 3:29 PM EST) Syphilis IgG/IgM Negative Negative [facility] Blood specimen (specimen) 06/08/2018 3:29 PM EST 06/08/2018 3:34 PM EST Narrative Resulting Agency Comment Spec In Lab Derrick Watts MD CHEMISTRY ORDERAB LES Performing Organization Address [facility] Co de Phone Number [facility] [place] [address] * HIV Screen, 4th Generation (06/08/2018 3:29 PM EST) Pathologist [facility] HIV Ab/Ag Screen Negative Negative [facility] Comment: This 4th Generation [...] ORDERAB LES Performing Organization Address [facility] Co de Phone Number [facility] [place] [address] * (ABNORMAL) HSV 1 and 2 IgG Antibodies (06/08/2018 3:29 PM EST) Pathologist [facility] HSV Type 1 Ab, IgG Pos(A) Neg [facility] HSV Type 2 Ab, IgG Pos(A) Neg [facility] Blood specimen (specimen) 06/08/2018 3:29 PM EST 06/09/2018 7:28 AM EST Narrative Resulting Agency Comment Spec In Lab Derrick Watts MD IMMUNOLOGY ORDERA BLES Performing Organization Address [facility] Co de Phone Number [facility] [place] [address] * (ABNORMAL) Carlie-Carballo Virus Antibodies (06/08/2018 3:29 PM EST) Pathologist [facility] EBV (VCA) IgG Ab Pos(A) Neg [facility] EBV (VCA) IgM Ab Neg Neg [facility] EBNA Antibodies Pos(A) Neg [facility] EBV Interpretation Results suggest past infection. [facility] Comment: In most populations, [...] MD IMMUNOLOGY ORDERA BLES Performing Organization Address [facility] Co de Phone Number [facility] [place] [place] [address] * CMV Antibody, IgG (06/08/2018 3:29 PM EST) CMV IgG Negative Negative [facility] Blood specimen (specimen) 06/08/2018 3:29 PM EST 06/09/2018 7:28 AM EST Narrative Resulting Agency Comment Spec In Lab Derrick Watts MD IMMUNOLOGY ORDERA BLES Performing Organization Address [facility] Co de Phone Number [facility] [place] [address] * Hepatitis C RNA, quantitative, PCR (06/08/2018 3:29 PM EST) HCV Viral Load <12 IU/mL [facility] HCV Viral Load Result: <12 IU/mL(Target Not Detected) Indication for Study: Hepatitis C Infection Analysis: The Ham RealTime HCV assay is an in vitro reverse conductor/engineer polymerase chain reaction (RT-PCR)for the quantitation of hepatitis C viral (HCV) RNA in human serum or plasma (EDTA) from HCV-infected individuals. Sample: plasma (0.7 mL minimum volume) Method: Ham RealTime HCV Assay Linear Range: 12 IU/mL - 100,000,000IU/mL Note: The Ham RealTime HCV Assay has been approved by the U.S. Food and Drug Administration. [facility] Comment: [VERIFIED DATE]06.13.18 Verified By:Denisse Clarke (Electronic Signature) Blood specimen (specimen) 06/08/2018 3:29 PM EST 06/12/2018 8:45 AM EST Narrative Resulting Agency Comment Spec In Lab Derrick Watts MD MOLECULAR ORDERAB LES Performing Organization Address [facility] Co de Phone Number [facility] [place] [address] * Hepatitis C Antibody (06/08/2018 3:29 PM EST) Hepatitis C Antibody Negative Negative [facility] Blood specimen (specimen) 06/08/2018 3:29 PM EST 06/08/2018 3:34 PM EST Narrative Resulting Agency Comment Spec In Lab Derrick Watts MD CHEMISTRY ORDERAB LES Performing Organization Address [facility] de Phone Number [facility] [place] [place] [address] * Hepatitis B Surface Antigen (06/08/2018 3:29 PM EST) Hepatitis B Surface Antigen Negative Negative [facility] Blood specimen (specimen) 06/08/2018 3:29 PM EST 06/08/2018 3:34 PM EST Narrative Resulting Agency Comment Spec In Lab Derrick Watts MD CHEMISTRY ORDERAB LES Performing Organization Address [facility] de Phone Number [facility] [place] [place] [address] * Hepatitis B Surface Antibody (06/08/2018 3:29 PM EST) Hepatitis B Surface Antibody, Quantitative 235.3 IU/L [facility] Comment: HepB Surface Ab Quant: Unvaccinated: < 8.5 IU/L Vaccinated: > 11.5 IU/L Hepatitis B Surface Antibody Positive [facility] Comment: Patient is considered to be immune to HBV infection. Expected Results: Vaccinated: Positive Unvaccinated: Negative Blood specimen (specimen) 06/08/2018 3:29 PM EST 06/08/2018 3:34 PM EST Narrative Resulting Agency Comment Spec In Lab Derrick Watts MD CHEMISTRY ORDERAB LES Performing Organization Address [facility] Co de Phone Number [facility] [place] [address] * Hepatitis B Core Antibody, IgM (06/08/2018 3:29 PM EST) Hepatitis B Core IgM Negative Negative [facility] Blood specimen (specimen) 06/08/2018 3:29 PM EST 06/08/2018 3:34 PM EST Narrative Resulting Agency Comment Spec In Lab Derrick Watts MD CHEMISTRY ORDERAB LES Performing Organization Address [facility] Phone Number [facility] [place] [place] [address] * Prothrombin Time (06/08/2018 3:29 PM EST) Prothrombin Time 11.7 9.4 - 12.5 sec [facility] International Normalization Ratio 1.0 [facility] Comment: An INR <2.0 [...] MD HEMATOLOGY ORDERA BLES Performing Organization Address [facility] Co de Phone Number [facility] [place] [address] * APTT (06/08/2018 3:29 PM EST) Partial Thromboplastin Time 34 25 - 37 sec [facility] Comment: The PTT is NOT appropriate for heparin monitoring. Use the Anti-Xa level for heparin monitoring (HEP UFH) or LMWH monitoring (HEP LMW). A PTT less than 37 seconds generally indicates adequate hemostasis. Blood specimen (specimen) 06/08/2018 3:29 PM EST 06/08/2018 3:34 PM EST Narrative Resulting Agency Comment Spec In Lab Derrick Watts MD HEMATOLOGY ORDERA BLES [facility] [place] [id number] documented in this encounter Visit Diagnoses Diagnosis [...] uncontrolled documented in this encounter Care Teams Sheet Rock Finisher Relationship Specialty Start Date End Date Jarad Keller DNP PCP - General Family Medicine 06/05/18 02/09/21 documented as of this encounter
--- OUTSIDE RECORDS SUMMARY | 2024-01-03 16:18 | XMS_ITS | Encounter Summary ---
Author Organization [facility] [place] [address] Care Team Providers Care Head Screen Worker Name Role Phone Ej Duran MD Primary Care Provider [phone] Reason for Visit * Reason Comments Eye Pain The patient presents for followup evaluation regarding ocular pain in the right eye. ESTRELLA Hardy Encounter Details Date Type Department Care Team (Late st Contact Info) Description 02/27/2013 2:00 PM EDT [place] [address] [facility] [place] [address] Acute angle-closure glaucoma of right eye. History [...] uncontrolled documented in this encounter Care Teams Head Screen Worker Relationship Specialty Start Date End Date Ej Duran MD [address] [place] [address] PCP - General 10/28/11 06/04/18 documented as of this encounter
--- OUTSIDE RECORDS SUMMARY | 2024-01-03 16:18 | XMS_ITS | Encounter Summary ---
Author Organization Formerly [facility] [place] [address] Care Team Providers Care Entry Driver Operator Name Role Phone Ej Duran MD Primary Care Provider [phone] Reason for Visit * Reason Comments Blurred Vision Patient presents for postoperative evaluation of each eye. ESTRELLA Hardy Encounter Details Date Type Department Care Team (Late st Contact Info) Description 12/19/2012 3:45 PM EDT [place] [address] Matteo Diane MD [facility] DR [place] [address] Acute angle-closure glaucoma of right eye (Primary [...] EDT December 19, 2012 Ej Duran MD [facility] [address] [place] [address] RE: Maurice Rudolph A#: [id number] Duran: I had the pleasure [...] way to reach me is through my legal administrative assistant at [phone]. Respectfully, Matteo Diane MD documented in this [...] uncontrolled documented in this encounter Care Teams Entry Driver Operator Relationship Specialty Start Date End Date Ej Duran MD [address] [place] [address] PCP - General 10/28/11 06/04/18 documented as of this encounter
--- OUTSIDE RECORDS SUMMARY | 2024-01-03 16:18 | XMS_ITS | Encounter Summary ---
[place] [address] Care Team Providers Care Formstone Fitter Name Role Phone Ej Duran MD Primary Care Provider Reason for Visit * Reason Onset Date Comments Eye Pain 02/19/2013 Encounter Details Date Type Department Care Team (Late st Contact Info) Description 02/19/2013 Telephone [place] [address] Young Duff MD [facility] [place] [address] Eye Pain Social History Tobacco Use Types [...] on filedocumented in this encounter Care Teams Formstone Fitter Relationship Specialty Start Date End Date Ej Duran MD [address] [place] [address] PCP - General 10/28/11 06/04/18 documented as of this encounter
--- OUTSIDE RECORDS SUMMARY | 2024-01-03 16:18 | XMS_ITS | Encounter Summary ---
[place] [address] Care Team Providers Care Review Consultant Name Role Phone Ej Duran MD Primary Care Provider [phone] Encounter Details Date Type Department Care Team (Late st Contact Info) Description 05/09/2018 Abstract [place] [address] Jessica Santos Social History Tobacco Use Types [...] on filedocumented in this encounter Care Teams Review Consultant Relationship Specialty Start Date End Date Ej Duran MD [address] [place] [address] PCP - General 10/28/11 06/04/18 documented as of this encounter
--- OUTSIDE RECORDS SUMMARY | 2024-01-03 16:18 | XMS_ITS | Encounter Summary ---
Author Organization [facility] [place] [address] Care Team Providers Care Film Producer Name Role Phone Ej Duran MD Primary Care Provider [phone] Reason for Visit * Reason Comments Post Op S/P Cataract extract ion w/ IOL OS 11/29/12 (DMM) Encounter Details Date Type Department Care Team (Late st Contact Info) Description 12/05/2012 2:00 PM EDT Office [place] [address] [facility] [place] [address] Post-operative state (Primary Dx); Pseudophakia; PDR (proliferative [...] uncontrolled documented in this encounter Care Teams Film Producer Relationship Specialty Start Date End Date Ej Duran MD [address] [place] [address] PCP - General 10/28/11 06/04/18 documented as of this encounter
--- OUTSIDE RECORDS SUMMARY | 2024-01-03 16:18 | XMS_ITS | Encounter Summary ---
Author Organization [facility] [place] [address] Care Team Providers Care Email Campaign Manager Name Role Phone Ej Duran MD Primary Care Provider [phone] Reason for Visit * Reason Comments Post Op 11 day P/O repair of tractional detachment and removal of retained lens material OD 07/31/12 Encounter Details Date Type Department Care Team (Late st Contact Info) Description 08/10/2012 9:30 AM EDT Office Visit [place] [address] Matteo Diane MD [facility] [place] [address] Hyperopia (Primary Dx); Vitreous hemorrhage, right eye; [...] glaucoma documented in this encounter Care Teams Email Campaign Manager Relationship Specialty Start Date End Date Ej Duran MD [address] [place] [address] PCP - General 10/28/11 06/04/18 documented as of this encounter
--- OUTSIDE RECORDS SUMMARY | 2024-01-03 16:18 | XMS_ITS | Encounter Summary ---
Author Organization [facility] [place] [address] Care Team Providers Care Healthcare Recruiter Name Role Phone Ej Duran MD Primary Care Provider [phone] Reason for Visit * Reason Comments Cataract for cat eval os, s/p vtx od, psph od ischemia od, acg od ,vtx, mp, rd repair od SWENDALEAH Ardon Encounter Details Date Type Department Care Team (Late st Contact Info) Description 11/06/2012 3:15 PM EDT Office [place] [address] Erasmo Bajwa MD [facility] [place] [address] Cataract (Primary Dx); IDDM (insulin dependent diabetes [...] uncontrolled documented in this encounter Care Teams Healthcare Recruiter Relationship Specialty Start Date End Date Ej Duran MD [address] [place] [address] PCP - General 10/28/11 06/04/18 documented as of this encounter
--- OUTSIDE RECORDS SUMMARY | 2024-01-03 16:18 | XMS_ITS | Encounter Summary ---
Author Organization [facility] [place] [address] Care Team Providers Care Sheet Metal Duct Installer Apprentice Name Role Phone Ej Duran MD Primary Care Provider [phone] Reason for Visit * Reason Comments PDR 4 wk f/u Encounter Details Date Type Department Care Team (Late st Contact Info) Description 06/12/2013 2:45 PM EST [place] [address] Matteo Diane MD [facility] [place] [address] Hyperopia, bilateral; Proliferative diabetic retinopathy, both eyes, [...] hypertension documented in this encounter Care Teams Sheet Metal Duct Installer Apprentice Relationship Specialty Start Date End Date Ej Duran MD [address] [place] [address] PCP - General 10/28/11 06/04/18 documented as of this encounter
--- OUTSIDE RECORDS SUMMARY | 2024-01-03 16:18 | XMS_ITS | Encounter Summary ---
Author Organization Formerly [facility] [place] [address] Care Team Providers Care Mainspring Former Arbor End Name Role Phone Jarad Keller DNP Primary Care Provider [phone] Encounter Details Date Type Department Care Team (Late st Contact Info) Description 06/08/2018 11:00 AM EST Office Visit [place] [address] Daily, Young Ramirez MD [facility] [place] [address] IDDM (insulin dependent diabetes mellitus); Hypertension, unspecified [...] He tells me he has had a [place]omba [place] kidney biopsy and this was done somewhere in [place]. He is known about his diabetes for [...] at [facility] ??? PRO REMV CATARACT EXTRACAP,INSERT LENS,COMP [...] return for putting your dorothy in the [facility] transplant center. We will be [...] MS, FACS Chief of Solid Organ Transplant [facility] documented in this encounter Plan of Treatment [...] adult documented in this encounter Care Teams Mainspring Former Arbor End Relationship Specialty Start Date End Date Jarad Keller DNP PCP - General Family Medicine 06/05/18 02/09/21 documented as of this encounter
--- OUTSIDE RECORDS SUMMARY | 2024-01-03 16:18 | XMS_ITS | Encounter Summary ---
Author [facility] [place] [place] [address] Care Team Providers Care Grave Cleaner Name Role Phone Ej Duran MD Primary Care Provider [phone] Reason for Visit * Reason Comments Post Op 1 day ck s/p CE/IOL OS Encounter Details Date Type Department Care Team (Late st Contact Info) Description 11/30/2012 10:15 AM EDT Office [place] [address] Erasmo Bajwa MD [facility] [place] [address] Cataract extraction status (Primary Dx) Discharge Disposition: [...] Primary documented in this encounter Care Teams Grave Cleaner Relationship Specialty Start Date End Date Ej Duran MD [address] [place] [address] PCP - General 10/28/11 06/04/18 documented as of this encounter
--- OUTSIDE RECORDS SUMMARY | 2024-01-03 16:18 | XMS_ITS | Encounter Summary ---
Author Organization 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 CBC Encounter Details Date Type Department Care Team (Late st Contact Info) Description 12/05/2012 2:45 PM EDT [place] [address] Matteo Diane MD [facility] [address] [place] [address] Acute angle-closure glaucoma of right eye (Primary [...] uncontrolled documented in this encounter Care Teams Tax Assistant Relationship Specialty Start Date End Date jE Duran MD [address] [place] [address] PCP - General 10/28/11 06/04/18 documented as of this encounter
--- OUTSIDE RECORDS SUMMARY | 2024-01-03 16:18 | XMS_ITS | Encounter Summary ---
Author Organization [facility] [place] [address] Care Team Providers Care Deputy Prosecuting Attorney Name Role Phone Ej Duran MD Primary Care Provider [phone] Reason for Visit * Reason Comments Detached Retina OD 2 day IOP check Encounter Details Date Type Department Care Team (Late st Contact Info) Description 08/03/2012 1:00 PM EDT Office [place] [address] Matteo Diane MD [facility] [place] [address] ACG (angle-closure glaucoma) (Primary Dx); Proliferative diabetic [...] glaucoma documented in this encounter Care Teams Deputy Prosecuting Attorney Relationship Specialty Start Date End Date Ej Duran MD [address] [place] [address] PCP - General 10/28/11 06/04/18 documented as of this encounter
--- OUTSIDE RECORDS SUMMARY | 2024-01-03 16:18 | XMS_ITS | Encounter Summary ---
Author Organization [facility] [place] [address] Care Team Providers Care Staff Editor Name Role Phone Ej Duran MD Primary Care Provider [phone] Reason for Visit * Reason Comments Eye Pain 1 month follow up on eye pain OD Encounter Details Date Type Department Care Team (Late st Contact Info) Description 03/27/2013 1:15 PM EST Office [place] [address] Matteo Diane MD [facility] [place] [address] Hyperopia (Primary Dx) Discharge Disposition: Home Social [...] Hypermetropia documented in this encounter Care Teams Staff Editor Relationship Specialty Start Date End Date Ej Duran MD [address] [place] [address] PCP - General 10/28/11 06/04/18 documented as of this encounter
--- OUTSIDE RECORDS SUMMARY | 2024-01-03 16:18 | XMS_ITS | Encounter Summary ---
Author Organization [facility] [place] [address] Care Team Providers Care Social Scientist Name Role Phone Ej Duran MD Primary Care Provider [phone] Reason for Visit * Reason Onset Date Comments Medication Refill 12/01/2012 pt stated he l ost the drops with the mabry cap Encounter Details Date Type Department Care Team (Late st Contact Info) Description 12/01/2012 [place] [address] Erasmo Bajwa MD [facility] [place] [address] Pseudophakia (Primary Dx) Social History Tobacco Use [...] means documented in this encounter Care Teams Social Scientist Relationship Specialty Start Date End Date Ej Duran MD [address] [place] [address] PCP - General 10/28/11 06/04/18 documented as of this encounter
--- OUTSIDE RECORDS SUMMARY | 2024-01-03 16:18 | XMS_ITS | Encounter Summary ---
Author Organization [facility] [place] [address] Care Team Providers Care Seat Covers Trimmer Name Role Phone Ej Duran MD Primary Care Provider [phone] Reason for Visit * Reason Comments Diabetes 3-mon f/u for PDR Encounter Details Date Type Department Care Team (Late st Contact Info) Description 09/14/2013 2:30 PM EDT [place] [address] [facility] DR [place] [address] Proliferative diabetic retinopathy, both eyes, type 1, [...] documented in this encounter Care Teams Seat Covers Trimmer Relationship Specialty Start Date End Date Ej Duran MD [address] [place] [address] PCP - General 10/28/11 06/04/18 documented as of this encounter
--- OUTSIDE RECORDS SUMMARY | 2024-01-03 16:18 | XMS_ITS | Encounter Summary ---
[facility] [place] [place] [address] Care Team Providers Care Technical Spec Name Role Phone Ej Duran MD Primary Care Provider Encounter Details Date Type Department Care Team (Late st Contact Info) Description 11/29/2012 12:11 PM EDT Anesthesia Event [facility] [place] [address] Kim Ellis MD [facility] [place] [address] Ruddy Foy MD [facility] [place] [address] Anesthesia Record Procedure Summary Procedure Name Responsible [...] PEELING performed by Matteo Diane MD at [facility] MAIN OR ??? Peripheral iridotomy [...] COMPLEX performed by Phillip Schwartz MD at [facility] OSC ??? Vitrectomy, w/ membrane stripping 04/03/2012 OD, CBC ? ? Repair complex retina detach vitrectomy & memb peel 07/31/2012 REPAIR COMPLEX RETINAL DETACHMENT, W/ VITRECTOMY, MEMBRANE PEELING performed by Matteo Diane MD at [facility] MAIN OR Got 40-60 mg of propofol [...] Assessment: Rhythm: regular Pulmonary Assessment: Dental Assessment: [facility] Assessment: Other exam findings: Dentures Mustache / [...] risks discussed with patient. Plan discussed with DELIVERY DRIVER/CUSTOM[facility] SERVICE[facility] Assessment: documented in this encounter [...] mL documented in this encounter Care Teams Technical Spec Relationship Specialty Start Date End Date Ej Duran MD [address] [place] [address] PCP - General 10/28/11 06/04/18 documented as of this encounter
--- OUTSIDE RECORDS SUMMARY | 2024-01-03 16:18 | XMS_ITS | Encounter Summary ---
Author Organization [facility] [place] [address] Care Team Providers Care Intravenous Therapy Nurse Name Role Phone Ej Duran MD Primary Care Provider Encounter Details Date Type Department Care Team (Late st Contact Info) Description 01/08/2013 7:30 AM EDT - 01/08/2013 8:58 AM EDT Surgery [place] [address] Ruthann Beckett MD [facility] [place] [address] REPAIR COMPLEX RETINAL DETACH W/VITRECTOMY, MEMBRANE PEELING, [...] all eye drops to tomorrow's appointment. Call [phone] for all questions concerns. Left side down [...] Beckett MD - 01/08/2013 9:38 AM EDT [facility] Operative Note Patient Name: Maurice Rudolph : [id number] MR#: [id number] Case Date: 01/08/2013 Surgeon: Surgeon(s) and Role: * Ruthann Beckett MD - Primary * Lesli Vo PA - Physician Mail Processing Machine Operator 8:10-9:38=1h 28m SURGICAL STAFF/ASSISTANTS RUTHANN Giordano. Hayley [...] capsulectomy with lysis of iris adhesions with sabianist of normal configuration of pupil. OPERATIVE INDICATIONS: [...] and fibrosis was easily dissected with good sabianist of pupil margin contour. This now provided [...] Operative Note Patient Name: Maurice Rudolph : [id number] MR#: [id number] Case Date: 01/08/2013 Surgeon: Surgeon(s) and Role: * Ruthann Beckett MD - Primary * Lesli Vo PA - Physician Mail Processing Machine Operator Preoperative diagnosis: RETINAL DETACHMENT Postoperative diagnosis: RETINAL [...] POC 111 60 - 199 mg/dL [facility] Comment: Supplemental ranges: <110 mg/dL before meals <200 mg/dL all other times of the day Blood specimen (specimen) 01/08/2013 9:58 AM EDT 01/08/2013 9:58 AM EDT Ruthann Beckett MD POINT OF CARE T EST ORDERABLES Performing Organization Address [facility] Co de Phone Number [facility] * POCT Glucose (01/08/2013 7:19 AM EDT) Glucose, POC 119 60 - 199 mg/dL [facility] Comment: Supplemental ranges: <110 mg/dL before meals <200 mg/dL all other times of the day Blood specimen (specimen) 01/08/2013 7:19 AM EDT 01/08/2013 7:19 AM EDT Ruthann Beckett MD POINT OF CARE T EST ORDERABLES Performing Organization Address [facility] Co de Phone Number [facility] documented in this encounter Visit Diagnoses [...] Given 01/08/2013 7:17 AM EDT 1 drop szoikolj-aaiogoraq-axduyvvlycewf (DEXACINE) 3.5-10,000-0.1 mg-unit/g-% ophthalmic ointment ONCE PRN, [...] (Given - Provid er: Ruthann Beckett MD) ceplobfa-cdrhaeomb-qcgswfwftgpx e (DEXACINE) 3.5-10,000-0.1 mg-unit/g-% ophthalmic ointment (CANCELED) [...] RN) documented in this encounter Care Teams Intravenous Therapy Nurse Relationship Specialty Start Date End Date Ej Duran MD [address] [place] [address] PCP - General 10/28/11 06/04/18 documented as of this encounter
--- OUTSIDE RECORDS SUMMARY | 2024-01-03 16:18 | XMS_ITS | Encounter Summary ---
Author Organization [facility] [place] [address] Care Team Providers Care Comfort Station Attendant Name Role Phone Jarad Keller DANIKA Primary Care Provider [phone] Reason for Visit * Consultation (Routine) - Closed Specialty Diagnoses / Procedures Referred By Puneet hallman Referred To Contact Transplant Procedures TXP Too Jang MD [facility] [place] [address] Young Watts MD [facility] [place] [address] Referral ID Status Reason Start Date Expiration Date Visits Re quested Visits Authorized [id number] Closed 05/09/2018 05/09/2019 1 1 Encounter Details Date Type Department Care Team (Latest Contact Info) Description 06/08/2018 9:00 AM EST Clinical Support [place] [address] Young Watts MD [facility] [place] [address] Pre-transplant evaluation for kidney transplant Social History [...] examination documented in this encounter Care Teams Comfort Station Attendant Relationship Specialty Start Date End Date Jarad Keller DNP PCP - General Family Medicine 06/05/18 02/09/21 documented as of this encounter
--- OUTSIDE RECORDS SUMMARY | 2024-01-03 16:18 | XMS_ITS | Encounter Summary ---
Author Organization [facility] [place] [address] Care Team Providers Care Photo Engraver Name Role Phone Ej Duran MD Primary Care Provider [phone] Reason for Visit * Reason Comments Post Op 1 day post op.OD () Encounter Details Date Type Department Care Team (Late st Contact Info) Description 01/09/2013 12:30 PM EDT Office [place] [address] Matteo Diane MD [facility] DR [place]THAL[place] [address] Proliferative diabetic retinopathy, both eyes. Status post [...] hypertension documented in this encounter Care Teams Photo Engraver Relationship Specialty Start Date End Date Ej Duran MD [address] [place] [address] PCP - General 10/28/11 06/04/18 documented as of this encounter
--- OUTSIDE RECORDS SUMMARY | 2024-01-03 16:19 | XMS_ITS ---
[place] [address] Care Team Providers Care Science Tutor Name Role Phone Kimani Leger MD Primary Care Provider [phone] Transplant Episode Kidney Candidate [facility] ([place], [place]) [facility] Evaluation began on 06/08/2018 Marked as Not a Candidate on 08/09/2018 Reason: Unable to Contact Patient Kidney CoordinatorCherelle Colvin RN Phone: N/A Fax: N/A Email: N/A Scores Score Value Updated Exceptions/Reas ons CPRA Not available EPTS (Calc) 94 01/03/2024 [place] [facility] Diagnosis Organ Primary Contributory Kidney Diabetes Mellitus - Type I Care Team Name Role Phone Fax Email Cherelle Colvin RN Kidney Coordinator N/A N/A N/A Too Morgan MD Referring Physician N/A N/A N/A Ana Hernández Government Relations Manager N/A N/A N/A Merlene Ferro RD Registered Dietitian N/A N/A N/A Ines Nye MSW Networking Specialist N/A N/A N/A Young Watts MD Transplant Physician N/A N/A N/A Events Pre-Transplant Referred: 05/09/2018 Evaluation began: 06/08/2018 Committee: 06/14/2018 Dialysis History Dialysis History Start End Type Comments Center 02/15/2017 In-center Hemodialysis Don[facility] Information Center Phone Fax Address [facility] [phone] [place] [address]
--- OUTSIDE RECORDS SUMMARY | 2024-01-03 16:19 | XMS_ITS | Encounter Summary ---
Author Organization [facility] [place] [address] Care Team Providers Care Sports Activities Foul Judge Name Role Phone Ej Duran MD Primary Care Provider Encounter Details Date Type Department Care Team (Late st Contact Info) Description 04/03/2012 9:34 AM EST - 04/03/2012 12:02 PM EST Surgery [place] [address] Ruthann Augustin MD [facility] [place] [address] REPAIR COMPLEX RETINAL DETACH W/VITRECTOMY, MEMBRANE PEELING, [...] have additional concerns or questions please call. [phone] 7. If after hours please call [phone] for the ophthalogy doctor substation operator helper generation. [address] ??? [place] [address] ??? [phone] ??? [email or web address] [employer] ??? [facility] ??? [facility] ??? [place] * Patient Instructions* Gloria Vo PA - 04/03/2012 12:24 PM EST Please keep patch and shield on operated eye until follow up appointment tomorrow. Ice packs over patch and shield as needed for pain. Tylenol 500 mg every four hours as needed for pain. Please bring eye kit and all eye drops to tomorrow's appointment. Call [phone] for all questions concerns. Have patient remain [...] Augustin MD - 04/03/2012 12:30 PM EST [facility] Operative Note Patient Name: Maurice Rudolph : [id number] MR#: [id number] Case Date: 04/03/2012 Surgeon: Surgeon(s) and Role: * Ruthann Augustin MD - Primary * HERVE Edwards - Resident-Telephonic Case Manager Preoperative diagnosis: PDR & VIT HEM Postoperative [...] Operative Note Patient Name: Maurice Rudolph : [id number] MR#: [id number] Case Date: 04/03/2012 Surgeon: Surgeon(s) and Role: * Ruthann Augustin MD - Primary * HERVE Edwards - Resident-Telephonic Case Manager Preoperative diagnosis: PDV & VIT HEM Postoperative [...] Glucose, POC 178 60 - 199 mg/dL [facility] [employer] [facility] Comment: Supplemental ranges: <110 mg/dL before meals <200 mg/dL all other times of the day Blood specimen (specimen) 04/03/2012 1:04 PM EST 04/03/2012 1:04 PM EST Ruthann Augustin MD POINT OF CARE T EST ORDERABLES Performing Organization Address [facility] Co de Phone Number [facility] [employer] * POCT Glucose (04/03/2012 8:22 AM EST) Glucose, POC 152 60 - 199 mg/dL [facility] [employer] [facility] Comment: Supplemental ranges: <110 mg/dL before meals <200 mg/dL all other times of the day Blood specimen (specimen) 04/03/2012 8:22 AM EST 04/03/2012 8:22 AM EST Ruthann Augustin MD POINT OF CARE T EST ORDERABLES Performing Organization Address [facility] Co de Phone Number [facility] [employer] [facility] documented in this encounter Visit [...] Given 04/03/2012 8:26 AM EST 1 drop vdgpikig-tjhjutwnf-tlssqdmvnrktm (DEXACINE) 3.5-10,000-0.1 mg-unit/g-% ophthalmic ointment ONCE PRN, [...] Ruthann Augustin MD - Comment: post op) yttobuva-jeqlwnwvy-kvpssbceda one (DEXACINE) 3.5-10,000-0.1 mg-unit/g-% ophthalmic ointment (CANCELED) [...] cefazolin) documented in this encounter Care Teams Sports Activities Foul Judge Relationship Specialty Start Date End Date Ej Duran MD [address] [place] [address] PCP - General 10/28/11 06/04/18 documented as of this encounter
--- OUTSIDE RECORDS SUMMARY | 2024-01-03 16:19 | XMS_ITS | Encounter Summary ---
Author Organization [facility] [place] [address] Care Team Providers Care Cfo Controller Name Role Phone Ej Duran MD Primary Care Provider [phone] Reason for Visit * Reason Comments PDR Patient presents for postoperative evaluation of the right eye but notes distortion in the left eye. CBC M.D. Chronic Angle Closure Glaucoma OD Vitreous Hemorrhage OD Encounter Details Date Type Department Care Team (Late st Contact Info) Description 05/03/2012 12:45 PM EST Office [place] [address] Matteo Diane MD [facility] [place] [address] Proliferative diabetic retinopathy of both eyes. Stable [...] Diane M.D. Matteo Diane MD [facility]Y [facility] ORDERABLES * FUNDUS PHOTOS - OS - [...] ESTRELLA FERRO Matteo Diane MD [facility]ALMOLOGY [facility] ORDERABLES documented in this encounter Visit [...] Hypermetropia documented in this encounter Care Teams Cfo Controller Relationship Specialty Start Date End Date Ej Duran MD [address] [place] [address] PCP - General 10/28/11 06/04/18 documented as of this encounter
--- OUTSIDE RECORDS SUMMARY | 2024-01-03 16:19 | XMS_ITS | Encounter Summary ---
Author Organization [facility] [place] [address] Care Team Providers Care Bondactor Machine Operator Name Role Phone Edi Petros SAXENA Primary Care Provider [phone] Encounter Details Date Type Department Care Team (Late st Contact Info) Description 08/05/2011 11:59 PM EDT Anesthesia Event [place] [address] Kameron Bojorquez MD [facility] DR [place] [address] Darian Bañuelos MD [facility] [place] [address] Anesthesia Record Procedure Summary Procedure Name Responsible [...] on filedocumented in this encounter Care Teams Bondactor Machine Operator Relationship Specialty Start Date End Date Petros Daley DO [address] [place] [address] PCP - General 06/15/11 10/27/11 documented as of this encounter
--- OUTSIDE RECORDS SUMMARY | 2024-01-03 16:19 | XMS_ITS | Encounter Summary ---
[place] [address] Care Team Providers Care Manufacturing Engineer Assembly Name Role Phone Petros Daley DO Primary Care Provider [phone] Encounter Details Date Type Department Care Team (Late st Contact Info) Description 07/29/2011 Orders [place] [address] Matteo Diane MD [facility] [place] [address] Vitreous hemorrhage, right eye (Primary Dx) Social [...] hemorrhage documented in this encounter Care Teams Manufacturing Engineer Assembly Relationship Specialty Start Date End Date Petros Daley DO [address] [place] [address] PCP - General 06/15/11 10/27/11 documented as of this encounter
--- OUTSIDE RECORDS SUMMARY | 2024-01-03 16:19 | XMS_ITS | Encounter Summary ---
Author Organization [facility] [place] [address] Care Team Providers Care School Standards Coach Name Role Phone Ej Duran MD Primary Care Provider [phone] Reason for Visit * Reason Comments Post Op s/p 1 day retinal de tachment repair with vitrectomy and membrane peel OD Encounter Details Date Type Department Care Team (Late st Contact Info) Description 04/05/2012 10:45 AM EST Office [place] [address] Matteo Diane MD [facility] [place] [address] Proliferative diabetic retinopathy, both eyes; Diabetes mellitus; [...] glaucoma documented in this encounter Care Teams School Standards Coach Relationship Specialty Start Date End Date Ej Duran MD [address] [place] [address] PCP - General 10/28/11 06/04/18 documented as of this encounter
--- OUTSIDE RECORDS SUMMARY | 2024-01-03 16:19 | XMS_ITS | Encounter Summary ---
Author Organization [facility] [place] [address] Care Team Providers Care Painter And Decorator Apprentice Name Role Phone Ej Duran MD Primary Care Provider [phone] Encounter Details Date Type Department Care Team (Late st Contact Info) Description 07/31/2012 7:26 AM EDT Anesthesia Event [place] [address] Giovanni Sykes MD [facility] [place] [address] Carmelina Carnes CRNA [facility] [place] [address] Anesthesia Record Procedure Summary Procedure Name Responsible [...] at [facility] MAIN OR ??? Peripheral iridotomy 04/06/2012 [...] COMPLEX performed by Phillip Schwartz MD at [facility] OSC ??? Vitrectomy, w/ membrane stripping [...] risks discussed with patient. Plan discussed with WEIGHT AND BALANCE CONTROL AGENT. Keshawn. Assessment: documented in this encounter Plan [...] mL documented in this encounter Care Teams Painter And Decorator Apprentice Relationship Specialty Start Date End Date Ej Duran MD [address] [place] [address] PCP - General 10/28/11 06/04/18 documented as of this encounter
--- OUTSIDE RECORDS SUMMARY | 2024-01-03 16:19 | XMS_ITS | Encounter Summary ---
[place] [address] Care Team Providers Care Photo Studio Assistant Name Role Phone Ej Duran MD Primary Care Provider [phone] Encounter Details Date Type Department Care Team (Late st Contact Info) Description 04/14/2012 4:45 PM EST Office Visit [place] [address] Matteo Diane MD [facility] [place] [address] Acute angle-closure glaucoma of right eye.stable status [...] hemorrhage documented in this encounter Care Teams Photo Studio Assistant Relationship Specialty Start Date End Date Ej Duran MD [address] [place] [address] PCP - General 10/28/11 06/04/18 documented as of this encounter
--- OUTSIDE RECORDS SUMMARY | 2024-01-03 16:19 | XMS_ITS | Encounter Summary ---
[place] [address] Care Team Providers Care Impregnating Tank Operator Name Role Phone Ej Duran MD Primary Care Provider [phone] Encounter Details Date Type Department Care Team (Late st Contact Info) Description 04/03/2012 9:33 AM EST Anesthesia Event [place] [address] Marquise Garcia MD [facility] [address] [place] [address] Anesthesia Record Procedure Summary Procedure Name Responsible [...] risks discussed with patient. Plan discussed with DATA CENTER OPERATOR. [facility]. Assessment: documented in this encounter Miscellaneous Notes * Addendum Note - Adilene Kelsey - 04/04/2012 10:34 AM EST Addendum created 04/04/12 1034 by Adilene Kelsey Modules edited:Anesthesia Events, Anesthesia Responsible Staff, SmartForms SmartFormsVN Section for SmartForms 266 documented in this encounter Plan of Treatment Not on file documented as of this encounter Visit Diagnoses Not on filedocumented in this encounter Care Teams Impregnating Tank Operator Relationship Specialty Start Date End Date Ej Duran MD [address] [place] [address] PCP - General 10/28/11 06/04/18 documented as of this encounter
--- OUTSIDE RECORDS SUMMARY | 2024-01-03 16:19 | XMS_ITS | Encounter Summary ---
Author Organization [facility] [place] [address] Care Team Providers Care Wire Mesh Knitter Name Role Phone Petros Daley DO Primary Care Provider [phone] Reason for Visit * Reason Comments Diabetes Pt sent by [facility] for proliferative diabetic retinopathy and vitreous hemorrhage OD Encounter Details Date Type Department Care Team (Late st Contact Info) Description 06/15/2011 10:00 AM EST Office [place] [address] Matteo Diane MD [facility] [place] [address] Diabetes mellitus (Primary Dx); Proliferative diabetic retinopathy, [...] hemorrhage documented in this encounter Care Teams Wire Mesh Knitter Relationship Specialty Start Date End Date Petros Daley DO [address] [facility] [address] [place] [address] PCP - General 06/15/11 10/27/11 documented as of this encounter
--- OUTSIDE RECORDS SUMMARY | 2024-01-03 16:19 | XMS_ITS | Encounter Summary ---
[place] [address] Care Team Providers Care Cowlman Name Role Phone Ej Duran MD Primary Care Provider [phone] Reason for Visit * Reason Comments Eye Problem increased IOP OD Encounter Details Date Type Department Care Team (Late st Contact Info) Description 04/06/2012 1:30 PM EST Office [place] [address] Phillip Schwartz MD [facility] [place] [address] Acute angle-closure glaucoma of right eye (Primary [...] glaucoma documented in this encounter Care Teams Cowlman Relationship Specialty Start Date End Date Ej Durna MD [address] [place] [address] PCP - General 10/28/11 06/04/18 documented as of this encounter
--- OUTSIDE RECORDS SUMMARY | 2024-01-03 16:19 | XMS_ITS | Encounter Summary ---
Author Organization [facility] [place] [address] Care Team Providers Care Custom Studio Coordinator Name Role Phone Ej Duran MD Primary Care Provider [phone] Reason for Visit * Reason Comments Post Op The patient percents for followup evaluation after complex vitrectomy and history of angle-closure. ESTRELLA Hardy Post Op shared pt with dr. wil lawson Encounter Details Date Type Department Care Team (Late st Contact Info) Description 06/21/2012 10:15 AM EST [place] [address] Matteo Diane MD [facility] [place] [address] Acute angle-closure glaucoma of right eye. Patency [...] June 21, 2012 RE: Maurice Rudolph A#: [id number] Dear Sergio; I would like to request [...] cataract documented in this encounter Care Teams Custom Studio Coordinator Relationship Specialty Start Date End Date Ej Duran MD [address] [place] [address] PCP - General 10/28/11 06/04/18 documented as of this encounter
--- OUTSIDE RECORDS SUMMARY | 2024-01-03 16:19 | XMS_ITS | Encounter Summary ---
Author Organization [facility] [place] [place] [address] Care Team Providers Care Food Service Assistant Name Role Phone Ej Duran MD Primary Care Provider [phone] Reason for Visit * Reason Comments Procedure vit tap to remove ga s OD Encounter Details Date Type Department Care Team (Late st Contact Info) Description 04/05/2012 12:00 PM EST Procedure [place] [address] Matteo Diane MD [facility] [place] [address] Vitreous hemorrhage, right eye; Proliferative diabetic retinopathy, [...] Diane md Matteo Diane MD OPHTHALMOLOGY S [facility] ORDERABLES documented in this encounter Visit Diagnoses [...] documented in this encounter Care Teams Food Service Assistant Relationship Specialty Start Date End Date Ej Duran MD [address] [place] [address] PCP - General 10/28/11 06/04/18 documented as of this encounter
--- OUTSIDE RECORDS SUMMARY | 2024-01-03 16:19 | XMS_ITS | Encounter Summary ---
Author Organization [facility] [place] [address] Care Team Providers Care Seam Checker Name Role Phone Ej Duran MD Primary Care Provider Reason for Visit * Reason Comments Post Op tearfor management o fangle-closure Eye Exam sees OD at [facility] (?name) Encounter Details Date Type Department Care Team (Late st Contact Info) Description 04/06/2012 1:00 PM EST Office [place] [address] Matteo Diane MD [facility] [place] [address] Vitreous hemorrhage, right eye; Proliferative diabetic retinopathy, [...] glaucoma documented in this encounter Care Teams Seam Checker Relationship Specialty Start Date End Date Ej Duran MD [address] [place] [address] PCP - General 10/28/11 06/04/18 documented as of this encounter
--- OUTSIDE RECORDS SUMMARY | 2024-01-03 16:19 | XMS_ITS | Encounter Summary ---
Author Organization [facility] [place] [address] Care Team Providers Care Wood Shop Teacher Name Role Phone Petros Daley DO Primary Care Provider [phone] Reason for Visit * Reason Comments Procedure PRP OS for Diabetic retinopathy Encounter Details Date Type Department Care Team (Late st Contact Info) Description 09/21/2011 12:45 PM EDT Procedure [place] [address] Matteo Diane MD [facility] DR [place] [address] Diabetic retinopathy (Primary Dx); Vitreous hemorrhage, right [...] uncontrolled documented in this encounter Care Teams Wood Shop Teacher Relationship Specialty Start Date End Date Petros Daley DO [address] [place] [address] [address] [place] [address] PCP - General 06/15/11 10/27/11 documented as of this encounter
--- OUTSIDE RECORDS SUMMARY | 2024-01-03 16:19 | XMS_ITS | Encounter Summary ---
Author Organization [facility] [place] [address] Care Team Providers Care Sports Marketing Coordinator Name Role Phone Ej Duran MD Primary Care Provider [phone] Reason for Visit * Reason Comments Eye Problem 5 wk ck, s/p PRP OS for Diabetic retinopathy. As reduced vision right eye and plans for vitrectomy right eye. Encounter Details Date Type Department Care Team (Late st Contact Info) Description 10/28/2011 12:45 PM EDT [place] [address] Matteo Beckett MD [facility] DR [place] [address] Blurred vision; Diabetes mellitus; Proliferative diabetic retinopathy, [...] documented in this encounter Care Teams Sports Marketing Coordinator Relationship Specialty Start Date End Date Ej Duran MD [address] [place] [address] PCP - General 10/28/11 06/04/18 documented as of this encounter
--- OUTSIDE RECORDS SUMMARY | 2024-01-03 16:19 | XMS_ITS | Encounter Summary ---
Author Organization [facility] [place] [address] Care Team Providers Care Senior Financial Analyst Name Role Phone Ej Duran MD Primary Care Provider [phone] Reason for Visit * Reason Comments Eye Pain Pt. is here for an e ye pain check w/ Dr. Hancock. OD was in a lot of pain over the weekend that has regressed to a dull pain now OD. Encounter Details Date Type Department Care Team (Late st Contact Info) Description 05/01/2012 11:15 AM EST [place] [address] Miriam Hancock MD [facility] [place] [address] Post-operative state (Primary Dx) Discharge Disposition: Home [...] status documented in this encounter Care Teams Senior Financial Analyst Relationship Specialty Start Date End Date Ej Duran MD [address] [place] [address] PCP - General 10/28/11 06/04/18 documented as of this encounter
--- OUTSIDE RECORDS SUMMARY | 2024-01-03 16:19 | XMS_ITS | Encounter Summary ---
Author Organization [facility] [place] [address] Care Team Providers Care Instrumentation Designer Name Role Phone Ej Duran MD Primary Care Provider [phone] Reason for Visit * Reason Comments Post Op Pt here for POD #7 I OL:OD (07/18/12) with Dr Schwartz. Encounter Details Date Type Department Care Team (Late st Contact Info) Description 07/25/2012 12:45 PM EDT Office [place] [address] Phillip Schwartz MD [facility] [place] [address] Cataract. Dense with synechiae. Right eye. (Primary [...] cataract documented in this encounter Care Teams Instrumentation Designer Relationship Specialty Start Date End Date Ej Duran MD [address] [place] [address] PCP - General 10/28/11 06/04/18 documented as of this encounter
--- OUTSIDE RECORDS SUMMARY | 2024-01-03 16:19 | XMS_ITS | Encounter Summary ---
Author Organization [facility] [place] [address] Care Team Providers Care Accounting Clerks Supervisor Name Role Phone Ej Duran MD Primary Care Provider [phone] Reason for Visit * Reason Comments Post Op Patient presents for postoperative evaluation after diabetic vitrectomy. ESTRELLA Hardy Post Op shared pt with dr. wil lawson Encounter Details Date Type Department Care Team (Late st Contact Info) Description 07/25/2012 2:00 PM EDT [place] [address] Matteo Diane MD [facility] [place] [address] Cataract. Dense with synechiae. Right eye. Status [...] uncontrolled documented in this encounter Care Teams Accounting Clerks Supervisor Relationship Specialty Start Date End Date Ej Duran MD [address] [place] [address] PCP - General 10/28/11 06/04/18 documented as of this encounter
--- OUTSIDE RECORDS SUMMARY | 2024-01-03 16:19 | XMS_ITS | Encounter Summary ---
Author Organization [facility] [place] [address] Care Team Providers Care Technician Telecommunication Systems Name Role Phone Ej Duran MD Primary Care Provider [phone] Encounter Details Date Type Department Care Team (Late st Contact Info) Description 07/18/2012 7:30 AM EDT - 07/18/2012 8:30 AM EDT Surgery [place] [address] Lisette Schwartz MD [facility] [place] [address] CATARACT EXTRACTION, EXTRACAPSULAR, WITH LENS INSERTION, COMPLEX [...] Schwartz MD - 07/18/2012 2:59 PM EDT [facility] Operative Note Patient Name: Maurice Rudolph : [id number] MR#: [id number] Case Date: 07/18/2012 Surgeon: Surgeon(s) and Role: * Lisette Schwartz MD - Primary METER MAKER: Staff. PREOPERATIVE DIAGNOSIS: Mature cataract, right eye. [...] Operative Note Patient Name: Maurice Rudolph : [id number] MR#: [id number] Case Date: 07/18/2012 Surgeon: Surgeon(s) and Role: [...] Francoise Ang RN)0725 (Given - Provider: Francoise nAg RN) moxifloxacin (VIGAMOX) 0.5 % ophthalmic solution [...] Day of Surgery (Day of Procedure) 0715 ([facility] ider: Francoise Ang RN) documented in this encounter Care Teams Technician Telecommunication Systems Relationship Specialty Start Date End Date Ej Duran MD [address] [place] [address] PCP - General 10/28/11 06/04/18 documented as of this encounter
--- OUTSIDE RECORDS SUMMARY | 2024-01-03 16:19 | XMS_ITS | Encounter Summary ---
Author Organization [facility] [place] [address] Care Team Providers Care Bridge Operator Slip Name Role Phone Ej Duran MD Primary Care Provider [phone] Encounter Details Date Type Department Care Team (Late st Contact Info) Description 04/03/2012 7:54 AM EST - 04/03/2012 3:13 PM [facility] Hospital Encounter Same [place] [address] Ruthann Augustin MD [facility] [place] [address] Discharge Disposition: Home Social History Tobacco Use [...] have additional concerns or questions please call. [phone] 7. If after hours please call [phone] for the ophthalogy doctor sr solutions consultant. [address] ??? [place] Henriquez [address] ??? [phone] ??? [email or web address] [email or web address] ??? [facility] ??? [facility] ??? [facility], [place], [place] * Patient Instructions* Gloria Vo PA - 04/03/2012 12:24 PM EST Please keep patch and shield on operated eye until follow up appointment tomorrow. Ice packs over patch and shield as needed for pain. Tylenol 500 mg every four hours as needed for pain. Please bring eye kit and all eye drops to tomorrow's appointment. Call [phone] for all questions concerns. Have patient remain [...] of this encounter H&P Notes * Gloria oV PA - 04/03/2012 9:21 AM EST No [...] MD - 04/03/2012 12:30 PM EST [facility] Operative Note Patient Name: Maurice Rudolph : [id number] MR#: [id number] Case Date: 04/03/2012 Surgeon: Surgeon(s) and Role: * Ruthann Augustin MD - Primary * HERVE Edwards - Resident-Shift Nurse Manager Preoperative diagnosis: PDR & VIT HEM [...] Operative Note Patient Name: Maurice Rudolph : [id number] MR#: [id number] Case Date: 04/03/2012 Surgeon: Surgeon(s) and Role: * Ruthann Augustin MD - Primary * HERVE Edwards - Resident-Shift Nurse Manager Preoperative diagnosis: PDV & VIT HEM [...] Glucose, POC 178 60 - 199 mg/dL [facility] Comment: Supplemental ranges: <110 mg/dL before meals <200 mg/dL all other times of the day Blood specimen (specimen) 04/03/2012 1:04 PM EST 04/03/2012 1:04 PM EST Ruthann Augustin MD POINT OF CARE T EST ORDERABLES Performing Organization Address [facility] Co de Phone Number [facility] * POCT Glucose (04/03/2012 8:22 AM EST) Glucose, POC 152 60 - 199 mg/dL [facility] Comment: Supplemental ranges: <110 mg/dL before meals <200 mg/dL all other times of the day Blood specimen (specimen) 04/03/2012 8:22 AM EST 04/03/2012 8:22 AM EST Ruthann Augustin MD POINT OF CARE T EST ORDERABLES Performing Organization Address [facility] Co de Phone Number [facility] documented in this encounter Visit [...] Ruthann Augustin MD - Comment: post op) juheunyf-aldutmlck-ogfxjuabwt one (DEXACINE) 3.5-10,000-0.1 mg-unit/g-% ophthalmic ointment (CANCELED) [...] cefazolin) documented in this encounter Care Teams Bridge Operator Slip Relationship Specialty Start Date End Date Ej Duran MD [address] [place] [address] PCP - General 10/28/11 06/04/18 documented as of this encounter
--- OUTSIDE RECORDS SUMMARY | 2024-01-03 16:19 | XMS_ITS | Encounter Summary ---
Author Organization [facility] [place] [address] Care Team Providers Care Hospital Unit Coordinator Name Role Phone Ej Duran MD Primary Care Provider [phone] Reason for Visit * Reason Comments PDR 4 wk ck, PRP 8/20 & 9/4 OS. Vision better OD. OD still poor. ESTRELLA FERRO Encounter Details Date Type Department Care Team (Late st Contact Info) Description 02/01/2012 1:30 PM EDT Follow-[place] [address] Matteo Beckett MD [facility] [place] [address] Diabetes mellitus; Blurred vision; Diabetic retinopathy; Proliferative [...] EDT February 01, 2012 Ej Duran M.D. [facility] [address] [place] [address] RE: Maurice Gurrola#: [id number] Duran: I had the pleasure [...] The best way to contact us is [phone]. He may speak to Joselin Montemayor, our audit practice intern or to Simeon, our equipment scheduler to keep us updated regarding his progress. [...] hemorrhage documented in this encounter Care Teams Hospital Unit Coordinator Relationship Specialty Start Date End Date Ej Duran MD [address] [place] [address] PCP - General 10/28/11 06/04/18 documented as of this encounter
--- OUTSIDE RECORDS SUMMARY | 2024-01-03 16:19 | XMS_ITS | Encounter Summary ---
Author Organization [facility] [place] [place] [address] Care Team Providers Care Nail Puller Name Role Phone Ej Duran MD Primary Care Provider [phone] Encounter Details Date Type Department Care Team (Latest Contact Info) Description 07/18/2012 6:43 AM EDT - 07/18/2012 8:56 AM EDT Hospital Encounter [place] [address] Lisette Schwartz MD [facility] [place] [address] Discharge Disposition: Home Social History Tobacco Use [...] Schwartz MD - 07/18/2012 2:59 PM EDT [facility] Operative Note Patient Name: Maurice Rudolph : [id number] MR#: [id number] Case Date: 07/18/2012 Surgeon: Surgeon(s) and Role: * Lisette Schwartz MD - Primary CRYPTOLOGIST: Staff. PREOPERATIVE DIAGNOSIS: Mature cataract, right eye. [...] Operative Note Patient Name: Maurice Rudolph : [id number] MR#: [id number] Case Date: 07/18/2012 Surgeon: Surgeon(s) and Role: [...] of Surgery (Day of Procedure) 0715 ([facility] ider: Francoise Ang RN) documented in this encounter Care Teams Nail Puller Relationship Specialty Start Date End Date Ej Duran MD [address] [place] [address] PCP - General 10/28/11 06/04/18 documented as of this encounter
--- OUTSIDE RECORDS SUMMARY | 2024-01-03 16:19 | XMS_ITS | Encounter Summary ---
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
--- OUTSIDE RECORDS SUMMARY | 2024-01-03 16:19 | XMS_ITS | Encounter Summary ---
Author Organization [facility] [place] [address] Care Team Providers Care Tip Printer Name Role Phone Ej Duran MD Primary Care Provider [phone] Reason for Visit * Reason Comments PDR here for 2 wk kay o n PDR, here for possible PRP Encounter Details Date Type Department Care Team (Late st Contact Info) Description 12/20/2011 3:45 PM EDT Procedure [place] [address] Miriam Hancock MD [facility] [place] [address] PDR (proliferative diabetic retinopathy) (Primary Dx) Discharge [...] uncontrolled documented in this encounter Care Teams Tip Printer Relationship Specialty Start Date End Date Ej Duran MD [address] [place] [address] PCP - General 10/28/11 06/04/18 documented as of this encounter
--- OUTSIDE RECORDS SUMMARY | 2024-01-03 16:19 | XMS_ITS | Encounter Summary ---
Author Organization [facility] [place] [address] Care Team Providers Care Journeyman Apprentice Electricians Name Role Phone Ej Duran MD Primary Care Provider [phone] Encounter Details Date Type Department Care Team (Late st Contact Info) Description 07/18/2012 7:23 AM EDT Anesthesia Event [place] [address] Maria Isabel Benton MD [facility] DR [place] [address] Sharla Scanlon CRNA [facility] [place] [address] Anesthesia Record Procedure Summary Procedure Name Responsible [...] [facility] ??? Peripheral iridotomy 04/06/2012 OD [...] consented to blood products. Plan discussed with [BACKUP OPERATOR Misc. Assessment: documented in this encounter Miscellaneous Notes * Addendum Note - Maddy Cortez - 07/19/2012 10:35 AM EDT Addendum created 07/19/12 1035 by Maddy Cortez Modules edited:Anesthesia Events, Anesthesia Responsible Staff, SmartForms SmartFormsVN Section for SmartForms 266 documented in this encounter Plan of Treatment Not on file documented as of this encounter Visit Diagnoses Not on filedocumented in this encounter Care Teams Journeyman Apprentice Electricians Relationship Specialty Start Date End Date Ej Duran MD [address] [place] [address] PCP - General 10/28/11 06/04/18 documented as of this encounter
--- OUTSIDE RECORDS SUMMARY | 2024-01-03 16:19 | XMS_ITS | Encounter Summary ---
Author Organization [facility] [place] [address] Care Team Providers Care Hydramatic Specialist Name Role Phone Ej Duran MD Primary Care Provider [phone] Reason for Visit * Reason Comments Eye Problem VA loss OS (see Meredith meneses notes) Encounter Details Date Type Department Care Team (Late st Contact Info) Description 12/06/2011 3:30 PM EDT [place] [address] Miriam Hancock MD [facility] [place] [place] [address] PDR (proliferative diabetic retinopathy) (Primary Dx) Discharge [...] uncontrolled documented in this encounter Care Teams Hydramatic Specialist Relationship Specialty Start Date End Date Ej Duran MD [address] [place] [address] PCP - General 10/28/11 06/04/18 documented as of this encounter
--- OUTSIDE RECORDS SUMMARY | 2024-01-03 16:19 | XMS_ITS | Encounter Summary ---
Author Organization [facility]ve [facility] [place] [place] [address] Care Team Providers Care Yoga Instructor Name Role Phone Ej Duran MD Primary Care Provider [phone] Reason for Visit * Reason Comments Post Op 1 POD IOL:OD ( 3) Encounter Details Date Type Department Care Team (Late st Contact Info) Description 07/19/2012 10:45 AM EDT Office [place] [address] Phillip Schwartz MD [facility] [place] [address] Cataract. Dense with synechiae. Right eye. (Primary [...] cataract documented in this encounter Care Teams Yoga Instructor Relationship Specialty Start Date End Date Ej Duran MD [address] [place] [address] PCP - General 10/28/11 06/04/18 documented as of this encounter
--- OUTSIDE RECORDS SUMMARY | 2024-01-03 16:19 | XMS_ITS | Encounter Summary ---
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
--- OUTSIDE RECORDS SUMMARY | 2024-01-03 16:19 | XMS_ITS | Encounter Summary ---
Author Organization [facility] [place] [address] Care Team Providers Care Special Certificate Dictator Name Role Phone Ej Duran MD Primary Care Provider [phone] Reason for Visit * Reason Comments Procedure PRP OS Encounter Details Date Type Department Care Team (Late st Contact Info) Description 01/04/2012 3:30 PM EDT Procedure [place] [address] Miriam Hancock MD [facility] [place] [address] PDR (proliferative diabetic retinopathy) (Primary Dx) Discharge [...] uncontrolled documented in this encounter Care Teams Special Certificate Dictator Relationship Specialty Start Date End Date Ej Duran MD [address] [place] [address] PCP - General 10/28/11 06/04/18 documented as of this encounter
--- OUTSIDE RECORDS SUMMARY | 2024-01-03 16:19 | XMS_ITS | Encounter Summary ---
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
--- OUTSIDE RECORDS SUMMARY | 2024-01-03 16:19 | XMS_ITS | Encounter Summary ---
Author Organization [facility] [place] [address] Care Team Providers Care Inspector Machined Parts Name Role Phone Ej Duran MD Primary Care Provider Reason for Visit * Reason Comments Eye Problem The patient presents with severe reduction visual acuity right eye. Benedicto Hardy Vitreous Hemorrhage OD; shared pt with maeve duran/ MANN did laser Encounter Details Date Type Department Care Team ([facility] st Contact Info) Description 02/22/2012 12:30 PM EDT Follow-Up [place] [address] Matteo Beckett MD [facility] [place] [address] Vitreous hemorrhage (Primary Dx); Proliferative diabetic retinopathy, [...] February 27, 2012 Ej Duran M.D. [facility] [address] [place] [address] RE: Maurice Rudolph A#: [id number] Duran: Just a brief note [...] to reach me is through my assistant unit forester Joselin at [phone]. Respectfully, Matteo Beckett M.D. documented in this encounter Nursing Notes * 02/22/2012 12:30 PM EDT >> MATTEO BECKETT MD Adin Feb 27, 2012 1:15 PM Patient continues [...] as indicated Matteo Beckett MD OPHTHALMOLOGY [facility] ORDERABLES documented in this encounter Visit Diagnoses Diagnosis Vitreous hemorrhage- Primary Proliferative diabetic retinopathy, both eyes Type II or unspecified type diabetes mellitus with ophthalmic manifestations, not stated as uncontrolled Vitreous hemorrhage, right eye Vitreous hemorrhage Diabetes mellitus Type II or unspecified type diabetes mellitus without mention of complication, not stated as uncontrolled documented in this encounter Care Teams Inspector Machined Parts Relationship Specialty Start Date End Date Ej Duran MD [address] [place] [address] PCP - General 10/28/11 06/04/18 documented as of this encounter
--- OUTSIDE RECORDS SUMMARY | 2024-01-03 16:19 | XMS_ITS | Encounter Summary ---
Author Organization [facility] [place] [address] Care Team Providers Care Strength And Conditioning Coach Name Role Phone Ej Duran MD Primary Care Provider [phone] Reason for Visit * Reason Comments Glaucoma 2 wk ck Encounter Details Date Type Department Care Team (Late st Contact Info) Description 06/26/2012 3:45 PM EST [place] [address] Lisette Schwartz MD [facility] [place] [address] Cataract. Dense with synechiae. Right eye. (Primary [...] glaucoma documented in this encounter Care Teams Strength And Conditioning Coach Relationship Specialty Start Date End Date Ej Duran MD [address] [place] [address] PCP - General 10/28/11 06/04/18 documented as of this encounter
--- OUTSIDE RECORDS SUMMARY | 2024-01-03 16:19 | XMS_ITS | Encounter Summary ---
Author Organization [facility] [place] [address] Care Team Providers Care Resource Recovery Specialist Name Role Phone Ej Duran MD Primary Care Provider [phone] Reason for Visit * Reason Comments Eye Problem The patient presents for postoperative evaluation status post complex vitrectomy right eye. ESTRELLA Hardy Eye Problem Encounter Details Date Type Department Care Team (Late st Contact Info) Description 06/06/2012 1:00 PM EST Office [place] [address] Matteo Diane MD [facility] [place] [address] Proliferative diabetic retinopathy of both eyes. Stable [...] uncontrolled documented in this encounter Care Teams Resource Recovery Specialist Relationship Specialty Start Date End Date Ej Duran MD [address] [place] [address] PCP - General 10/28/11 06/04/18 documented as of this encounter
--- OUTSIDE RECORDS SUMMARY | 2024-01-03 16:19 | XMS_ITS | Encounter Summary ---
[place] [address] Care Team Providers Care Soa Integration Developer Name Role Phone Ej Duran MD Primary Care Provider [phone] Reason for Visit * Reason Comments Procedure Here for fabienne MEIER CE. Encounter Details Date Type Department Care Team (Latest Contact Info) Description 06/26/2012 3:45 PM EST Clinical [place] [address] [facility], [address] MOISE Cataract (Primary Dx) Discharge [...] Procedure Name Priority Date/Time Associated Diagnosis Comments [id number]-[id number] CALC BY LASER INTERFEROMETRY - OU - BOTH EYES Routine 06/27/2012 4:31 PM EST Cataract documented in this encounter Results * OTRSCZO-ZDYTD-JIP CALC BY LASER WRQLANNTZKKZ-EI-ZTVJ EYES (06/27/2012 4:31 PM EST) Anatomical Region [...] cataract documented in this encounter Care Teams Soa Integration Developer Relationship Specialty Start Date End Date Ej Duran MD [address] [place] [address] PCP - General 10/28/11 06/04/18 documented as of this encounter
--- OUTSIDE RECORDS SUMMARY | 2024-01-03 16:19 | XMS_ITS | Encounter Summary ---
Author Organization [facility] [place] [address] Care Team Providers Care Veterinary Surgery Technician Name Role Phone Ej Duran MD Primary Care Provider [phone] Reason for Visit * Reason Onset Date Comments Eye Problem 12/03/2011 Few months ago p atient had OS laser treatment. Having dull pain but can't see. Like looking through a thick fog. Can only make out shapes. Encounter Details Date Type Department Care Team ([facility] Contact Info) Description 12/03/2011 [place] [address] Matteo Diane MD [facility] [place] [address] Eye Problem (Few months ago patient had [...] on filedocumented in this encounter Care Teams Veterinary Surgery Technician Relationship Specialty Start Date End Date Ej Duran MD [address] [place] [address] PCP - General 10/28/11 06/04/18 documented as of this encounter
--- OUTSIDE RECORDS SUMMARY | 2024-01-03 16:19 | XMS_ITS | Encounter Summary ---
Author Organization [facility] [place] [address] Care Team Providers Care Motorman/Woman Name Role Phone Ej Duran MD Primary Care Provider [phone] Reason for Visit * Reason Comments Post Op 1 day chk, s/p Vit/g as OD. No pain now. Level V/X pain overnight. Control. Encounter Details Date Type Department Care Team (Late st Contact Info) Description 04/04/2012 9:15 AM EST Office [place] [address] Matteo Diane MD [facility] [place] [address] Proliferative diabetic retinopathy, both eyes. Postoperative day [...] glaucoma documented in this encounter Care Teams Motorman/Woman Relationship Specialty Start Date End Date Ej Duran MD [address] [place] [address] PCP - General 10/28/11 06/04/18 documented as of this encounter
--- OUTSIDE RECORDS SUMMARY | 2024-01-03 16:19 | XMS_ITS | Encounter Summary ---
Author Organization [facility] [place] [address] Care Team Providers Care Industry Analyst Name Role Phone Edi Petros SAXENA Primary Care Provider [phone] Reason for Visit * Reason Comments Procedure PRP OD (possibly OS) // Definitely OS given VH density OD CBC MD Encounter Details Date Type Department Care Team (Late st Contact Info) Description 07/06/2011 7:45 AM EST Procedure [place] [address] Ruthann Beckett MD [facility] DR [place] [address] Diabetes mellitus (Primary Dx); Blurred vision; Vitreous [...] uncontrolled documented in this encounter Care Teams Industry Analyst Relationship Specialty Start Date End Date Petros Daley DO [address] [place] [address] PCP - General 06/15/11 10/27/11 documented as of this encounter
--- OUTSIDE RECORDS SUMMARY | 2024-01-03 16:19 | XMS_ITS | Encounter Summary ---
Author Organization [facility] [place] [address] Care Team Providers Care Ink Blender Name Role Phone Ej Duran MD Primary Care Provider [phone] Reason for Visit * Reason Comments Decreased Visual Acuity Pt complains of a sudden onset of decrease VA OS over the last week, seems that VA is getting worse, VA is very blurry, can not even read. Encounter Details Date Type Department Care Team (Late st Contact Info) Description 12/03/2011 10:30 AM EDT Office Visit [place] [address] Marquise Cárdenas MD [facility] 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 documented in this encounter [...] MD OPHTHALMOLOGY SERVIC ES ORDERABLES * OCT Qqywwz-KW-MSIH EYE (12/03/2011 4:53 PM EDT) Anatomical Region [...] uncontrolled documented in this encounter Care Teams Ink Blender Relationship Specialty Start Date End Date Ej Duran MD [address] [place] [address] PCP - General 10/28/11 06/04/18 documented as of this encounter
--- OUTSIDE RECORDS SUMMARY | 2024-01-03 16:19 | XMS_ITS | Encounter Summary ---
Author Organization [facility] [place] [address] Care Team Providers Care Tank House Supervisor Name Role Phone Ej Duran MD Primary Care Provider [phone] Reason for Visit * Reason Comments PDR Pt. is here for a re tinal eye evaluation w/ Dr. Diane. Encounter Details Date Type Department Care Team (Late st Contact Info) Description 05/19/2012 2:30 PM EST Follow-[place] [address] Matteo Diane MD [facility] [place] [address] Proliferative diabetic retinopathy of both eyes. Status [...] glaucoma documented in this encounter Care Teams Tank House Supervisor Relationship Specialty Start Date End Date Ej Duran MD [address] [place] [address] PCP - General 10/28/11 06/04/18 documented as of this encounter
--- OUTSIDE RECORDS SUMMARY | 2024-01-03 16:19 | XMS_ITS | Encounter Summary ---
Author Organization [facility] [place] [address] Care Team Providers Care Defensive Secondary Coach Name Role Phone Ej Duran MD Primary Care Provider [phone] Reason for Visit * Reason Comments Post Op 2 POD:LPI:OD for Acu te Angle Closure Encounter Details Date Type Department Care Team (Late st Contact Info) Description 04/08/2012 11:30 AM EST Office [place] [address] Phillip Schwartz MD [facility] [place] [address] Acute angle-closure glaucoma of right eye Discharge [...] glaucoma documented in this encounter Care Teams Defensive Secondary Coach Relationship Specialty Start Date End Date Ej Duran MD [address] [place] [address] PCP - General 10/28/11 06/04/18 documented as of this encounter
--- OUTSIDE RECORDS SUMMARY | 2024-01-03 16:19 | XMS_ITS | Encounter Summary ---
Author Organization [facility] [place] [address] Care Team Providers Care Corporate Travel Expert Name Role Phone Ej Duran MD Primary Care Provider [phone] Encounter Details Date Type Department Care Team (Late st Contact Info) Description 07/31/2012 6:07 AM EDT - 07/31/2012 9:35 AM EDT Hospital Encounter [place] [address] Ruthann Beckett MD [facility] [place] [address] Discharge Disposition: Home Social History Tobacco Use [...] all eye drops to tomorrow's appointment. Call [phone] for all questions concerns. Right side down [...] Beckett MD - 07/31/2012 9:00 AM EDT [facility] Operative Note Patient Name: Maurice Rudolph : [id number] MR#: [id number] Case Date: 07/31/2012 Surgeon: Surgeon(s) and Role: [...] at this time. Please note also the krwfxbhg-dq-bphticlh time was from 7:55 a.m. exactly until 8:55 a.m. The patient will return here postoperative day #1. He is to lie on the right side. Airway safety and venous thrombosis prevention measures will be reviewed again in the postoperative setting. He is to call the eye physician editorial cartoonist the overnight period if there are any [...] Operative Note Patient Name: Maurice Rudolph : [id number] MR#: [id number] Case Date: 07/31/2012 Surgeon: Surgeon(s) and Role: [...] * POCT Glucose (07/31/2012 9:09 AM EDT) [facility] Glucose, POC 181 60 - 199 mg/dL [facility] Comment: Supplemental ranges: <110 mg/dL before [...] CARE T EST ORDERABLES Performing Organization Address City/[facility] Co de Phone Number BERHANE CASTRO [...] Beckett MD - Comment: mixed with bupivacaine) ljznekhx-cdlstytbx-ohztyuiojpdn e (DEXACINE) 3.5-10,000-0.1 mg-unit/g-% ophthalmic ointment (CANCELED) [...] cefazolin) documented in this encounter Care Teams Corporate Travel Expert Relationship Specialty Start Date End Date Ej Duran MD [address] [place] [address] PCP - General 10/28/11 06/04/18 documented as of this encounter
--- OUTSIDE RECORDS SUMMARY | 2024-01-03 16:19 | XMS_ITS | Encounter Summary ---
Author Organization [facility] [place] [address] Care Team Providers Care Retaining Room Cutter Name Role Phone Edi Petros SAXENA Primary Care Provider [phone] Reason for Visit * Reason Comments Blurred Vision pt did not need Lase r today-see prog. notes. Vision getting worse OD. OS better after initail laser OS CBC Encounter Details Date Type Department Care Team (Late st Contact Info) Description 07/27/2011 9:15 AM EDT Procedure [place] [address] Ruthann Beckett MD [facility] [place] [address] Diabetic retinopathy (Primary Dx); Proliferative diabetic retinopathy, [...] 9:15 AM EDT >> RUTHANN BECKETT MD [facility] Jul 27, 2011 8:16 PM OD [...] disturbances documented in this encounter Care Teams Retaining Room Cutter Relationship Specialty Start Date End Date Petros Daley DO [address] [place] [address] PCP - General 06/15/11 10/27/11 documented as of this encounter
--- OUTSIDE RECORDS SUMMARY | 2024-01-03 16:20 | XMS_ITS | Encounter Summary ---
Author Organization [facility] Address [address] [place] [address] Care Team Providers Care Wet Sander Name Role Phone Jarad Iglesias DNP Primary Care Provider [phone] Reason for Referral * (Routine/Next Available) - Receiving Office to Obtain Authorization Specialty Diagnoses / Procedures Referred By Puneet hallman Referred To Contact Procedures CT OUTSIDE IMAGES RIGHT LOWER EXTREMITY Unknown, ProviderMD Referral ID Status Reason Start Date Expiration Date Visits Requested Visits Authorized [id number] Receiving Office to Obtain Authorization 12/28/2023 1 1 Reason for Visit * (Routine/Next Available) - Receiving Office to Obtain Authorization Specialty Diagnoses / Procedures Referred By Puneet hallman Referred To Contact Procedures CT OUTSIDE IMAGES RIGHT LOWER EXTREMITY Unknown, ProviderMD Referral ID Status Reason Start Date Expiration Date Visits Requested Visits Authorized [id number] Receiving Office to Obtain Authorization 12/28/2023 1 1 Encounter Details Date Type Department Care Team (Latest Contact Info) Description 12/28/2023 19:36 EDT - 12/28/2023 23:59 EDT Hospital Encounter [facility] [place]s [place] Discharge Disposition: Home or Self Care Social [...] 1 Tab by mouth at bedtime. 10/14/2018 mv,Gc-VZ-Z9-AB-0-eue-epa -fish (PRORENAL QD) 400-500 mcg-unit capsule Take [...] on filedocumented in this encounter Care Teams Wet Sander Relationship Specialty Start Date End Date Jarad Iglesias, [facility] [address] [place] [address] [place] [address] PCP - General 10/12/18 documented as of this encounter
--- OUTSIDE RECORDS SUMMARY | 2024-01-03 16:20 | XMS_ITS | Clinical Summary ---
Author Organization [facility] Address [address] [place] [address] Care Team Providers Care Beef Cattle Farm Worker Name Role Phone Sanjay AriannaJarad barrientos Maeve DNP Primary Care Provider [phone] Allergies No known active allergies Medications Medication [...] mouth every , , Sat (Dialysis). Active mv,Rs-FE-Q8-OM-3-dha- epa-fish (PRORENAL QD) 400-500 mcg-unit capsule Take [...] Cellulitis 10/12/2018 ESRD (end stage renal disease) ([facility]) 019 Encounters Date Type Department Care Team Description 12/28/2023 19:36 EDT - 12/28/2023 23:59 EDT Hospital Encounter [facility] [place] Discharge Disposition: Home or Self Care 12/28/2023 19:36 EDT - 12/28/2023 23:59 EDT Hospital Encounter [facility] [place] Discharge Disposition: Home or Self Care from Last 3 Months Surgical History Surgery Date Site/Laterality Comments CORONARY ARTERY BYPASS GRAFT 05/02/2014 - 05/01/2015 Medical History Medical History Date Comments End stage renal disease on dialysis ([facility]) Diabetes mellitus ([facility]) Coronary artery disease Neuropathy GERD (gastroesophageal reflux [...] C Antibody Negative Negative 08/03/2021 9:53 EDT [facility] Blood VENOUS BLOOD / Unknown 07/31/2021 10:10 EDT 07/31/2021 21:21 EDT Provider Outr Resulting Lab CHEMISTRY & BLOOD GAS ORDERABLES [facility] [address] [place] [address] from Last 3 Months or Most Recently Relevant to Health Maintenance Advance Directives For more information, please contact: [phone] * Full Code (Latest Code Status on File) Date Activated Date Inactivated Comments 10/12/2018 13:48 10/14/2018 16:39 Question Answer Comments Reason for decision includes: Full code consistent with overall plan of care Who participated in the discussion? Patient Care Teams Beef Cattle Farm Worker Relationship Specialty Start Date End Date Jarad Iglesias, [facility] [place] [address] PCP - General 10/12/18
--- OUTSIDE RECORDS SUMMARY | 2024-01-03 16:20 | XMS_ITS | Encounter Summary ---
Author Organization [facility] Address [address] [place] [address] Care Team Providers Care Manager Business Intelligence Name Role Phone Sanjay Shaina Keller DNP Primary Care Provider [phone] Encounter Details Date Type Department Care Team (Late st Contact Info) Description 01/22/2019 Results Only [facility] [phone] Deb Echeverria MD [address] [place] [address] [address] [place], [place] [id number] Social History Tobacco Use Types Packs/Day Years [...] ? SINDI RUDOLPH ? Accession #: ? [id number] ? : ? 1960 (Age: 58) ??M [...] Smith 01/23/2019 8:57 AM End of Report [facility] 01/22/2019 17:1 4 EDT 01/22/2019 17:14 EDT Deb Echeverria MD PATHOLOGY ORDERA ROSIE [facility] [address] [place] [address] documented in this encounter Visit Diagnoses Not on filedocumented in this encounter Care Teams Manager Business Intelligence Relationship Specialty Start Date End Date Shaina Iglesias, DNP [facility] [place] [address] PCP - General 10/12/18 documented as of this encounter
--- OUTSIDE RECORDS SUMMARY | 2024-01-03 16:20 | XMS_ITS | Encounter Summary ---
Author Organization [facility] Address [address] [place] [address] Care Team Providers Care Chisel Trimmer Name Role Phone Sanjay AriannaJarad barrientos Maeve DNP Primary Care Provider [phone] Encounter Details Date Type Department Care Team (Late st Contact Info) Description 07/31/2021 Lab Requisition [facility] [address] [place] [address] Outr Resulting Lab, Provider Social History Tobacco [...] Negative Negative 08/03/2021 9:53 EDT [facility] Blood VENOUS BLOOD / Unknown 07/31/2021 10:10 EDT 07/31/2021 21:21 EDT Provider Outr Resulting Lab CHEMISTRY & BLOOD GAS ORDERABLES [facility] [address] [place] [address] documented in this encounter Visit Diagnoses Not on filedocumented in this encounter Care Teams Chisel Trimmer Relationship Specialty Start Date End Date Jarad Iglesias, [place] [address] PCP - General 10/12/18 documented as of this encounter
--- OUTSIDE RECORDS SUMMARY | 2024-01-03 16:20 | XMS_ITS | Encounter Summary ---
Author Organization [facility] Address [address] [place] [address] Care Team Providers Care News Videographer Name Role Phone Sanjay AriannaJarad barrientos Maeve DNP Primary Care Provider [phone] Encounter Details Date Type Department Care Team (Latest Contact Info) Description 01/22/2019 12:15 EDT - 01/22/2019 23:59 EDT Hospital Encounter [address] [address] Unknown, Provider, Discharge Disposition: Home or Self [...] 1 Tab by mouth at bedtime. 10/14/2018 mv,Il-JB-W0-TV-0-zti-epa -fish (PRORENAL QD) 400-500 mcg-unit capsule Take [...] Code Departure Means Destination Home or Self Mcfp documented in this encounter Plan of Treatment Not on file documented as of this encounter Visit Diagnoses Not on filedocumented in this encounter Care Teams News Videographer Relationship Specialty Start Date End Date Jarad Iglesias, DANIKA [address] [place] [address] PCP - General 10/12/18 documented as of this encounter
--- OUTSIDE RECORDS SUMMARY | 2024-01-03 16:20 | XMS_ITS | Encounter Summary ---
Author Organization [facility] Address [address] [place] [address] Care Team Providers Care Cutting Table Operator Name Role Phone Sanjay Jarad Keller DNP Primary Care Provider [phone] Encounter Details Date Type Department Care Team (Late st Contact Info) Description 10/12/[address] [facility] [phone] Unknown, Provider, Social History Tobacco Use Types [...] on filedocumented in this encounter Care Teams Cutting Table Operator Relationship Specialty Start Date End Date Jarad Iglesias, [facility] [place] [address] PCP - General 10/12/18 documented as of this encounter
--- OUTSIDE RECORDS SUMMARY | 2024-01-03 16:20 | XMS_ITS | Encounter Summary ---
Author Organization [facility] Address [address] [place] [address] Care Team Providers Care Quenching Car Operator Name Role Phone Jarad Iglesias [facility] Primary Care Provider [phone] Reason for Referral * (Routine/Next Available) - Receiving Office to Obtain Authorization Specialty Diagnoses / Procedures Referred By Puneet hallman Referred To Contact Procedures XR OUTSIDE IMAGES RIGHT LOWER EXTREMITY Unknown, ProviderMD Referral ID Status Reason Start Date Expiration Date Visits Requested Visits Authorized [id number] Receiving Office to Obtain Authorization 12/28/2023 1 1 Reason for Visit * (Routine/Next Available) - Receiving Office to Obtain Authorization Specialty Diagnoses / Procedures Referred By Puneet hallman Referred To Contact Procedures XR OUTSIDE IMAGES RIGHT LOWER EXTREMITY Unknown, ProviderMD Referral ID Status Reason Start Date Expiration Date Visits Requested Visits Authorized [id number] Receiving Office to Obtain Authorization 12/28/2023 1 1 Encounter Details Date Type Department Care Team (Latest Contact Info) Description 12/28/2023 19:36 EDT - 12/28/2023 23:59 EDT Hospital Encounter [facility] [place] Discharge Disposition: [...] 1 Tab by mouth at bedtime. 10/14/2018 mv,He-RA-N7-OY-4-kft-epa -fish (PRORENAL QD) 400-500 mcg-unit capsule Take [...] on filedocumented in this encounter Care Teams Quenching Car Operator Relationship Specialty Start Date End Date Jarad Iglesias, [facility] [address] [place] [address] [place] [address] PCP - General 10/12/18 documented as of this encounter
--- OUTSIDE RECORDS SUMMARY | 2024-01-03 16:20 | XMS_ITS | Referral Summary ---
Author Organization [facility] Address [address] [place] [address] Care Team Providers Care Chief Nuclear Medicine Technologist Name Role Phone Sanjay AriannaJarad barrientos Maeve DNP Primary Care Provider [phone] Encounters Date Type Department Care Team Description 12/28/2023 19:36 EDT - 12/28/2023 23:59 EDT Hospital Encounter [facility] [place] Discharge Disposition: Home or Self Care 12/28/2023 19:36 EDT - 12/28/2023 23:59 EDT Hospital Encounter [facility] [place] Discharge Disposition: Home or [...] by mouth every , , Tue (Dialysis). Active mv,Hr-SN-P4-OM-3-dha- epa-fish (PRORENAL QD) 400-500 mcg-unit capsule Take [...] , Tue (Dialysis). Apply to fistula site. Active sertraline (ZOLOFT) 25 mg tabletIndications:david or depressive disorder Take 2 Tabs by mouth daily. 10/14/2018 Active multivitamin (NEPHROVITE) 0.8 mg tablet Take 1 Tab by mouth at bedtime. 10/14/2018 Active Active Problems Problem Noted Date Diagnosed Date Cellulitis 10/12/2018 ESRD (end stage renal disease) ([facility]) 019 Social History Tobacco Use Types [...] Negative Negative 08/03/2021 9:[address] [facility] Blood VENOUS BLOOD / Unknown 07/31/2021 10:10 EDT 07/31/2021 21:21 EDT Provider Outr Resulting Lab CHEMISTRY & BLOOD GAS ORDERABLES [facility] [address] [place] [address] from Last 3 Months or Most Recently Relevant to Health Maintenance Advance Directives For more information, please contact: [phone] * Full Code (Latest Code Status on File) Date Activated Date Inactivated Comments 10/12/2018 13:48 10/14/2018 16:39 Question Answer Comments Reason for decision includes: Full code consistent with overall plan of care Who participated in the discussion? Patient Care Teams Chief Nuclear Medicine Technologist Relationship Specialty Start Date End Date Jarad Iglesias, DNP [facility] [place] [id number] PCP - General 10/12/18
--- OUTSIDE RECORDS SUMMARY | 2024-01-03 16:20 | XMS_ITS | Encounter Summary ---
Author Organization [facility] Address [address] [place] [address] Care Team Providers Care General Lithographic Worker Name Role Phone Sanjay AriannaJarad barrientos Maeve DNP Primary Care Provider [phone] Reason for Visit * Reason Onset Date Comments Discuss Possible Transfer 10/12/2018 Encounter Details Date Type Department Care Team (Late st Contact Info) Description 10/12/2018 Telephone [facility] [address] [place], [place] [id number] Xiomara Mccauley MD [address] [place] [phone] Discuss Possible Transfer Social History Tobacco [...] Encounter - Xiomara Mccauley MD - 10/12/2018 0711 EDT Tele[address] call from Dr. Chávez at [facility] via [facility] regarding possible transfer. Patient [...] placed for retention. No beds available [place] [facility] Accepted patient for emergent transfer to medicine bed with telemetry given rapidly progressive cellulitis and associated sepsis. Xiomara Mccauley MD documented in this encounter Plan of Treatment Not on file documented as of this encounter Visit Diagnoses Not on filedocumented in this encounter Care Teams General Lithographic Worker Relationship Specialty Start Date End Date Jarad Iglesias, [facility] [place] [address] PCP - General 10/12/18 documented as of this encounter
--- OUTSIDE RECORDS SUMMARY | 2024-01-03 16:20 | XMS_ITS ---
[place] [address] Care Team Providers Care Pouncer Machine Name Role Phone Kimani Leger MD Primary Care Provider [phone] Transplant Episode Kidney Candidate [facility] ([place], [place]) [facility] Evaluation began on 02/06/2020 Marked as Ineligible on 01/13/2021 Reason: Unable to Contact Patient Kidney CoordinatorSherie Mccallum APRN Phone: N/A Fax: N/A Email: N/A Scores Score Value Updated Exceptions/Reas ons CPRA Not available EPTS (Calc) 94 01/03/2024 [place] Organ Diagnosis Organ Primary Contributory Kidney Diabetes Mellitus - Type I Care Team Name Role Phone Fax Email Sherie Mccallum APRN Kidney Coordinator N/A N/A N/A Cheryl Presley RD Registered Dietitian N/A N/A N/A Too Morgan MD Referring Physician N/A N/A N/A Ana Hernández Camera Systems Engineer N/A N/A N/A Ines Nye MSW Harvest Crew Supervisor N/A N/A N/A Young Watts MD Transplant Physician N/A N/A N/A Events Pre-Transplant Referred: 12/18/2019 Evaluation began: 02/06/2020 Committee: 01/13/2021 Pending Checklist Tasks (Due on or before 02/02/2024) Name Due Date Attached Appoint ment Coordinator Review of Records 07/13/2020 Dialysis History Dialysis History Start End Type Comments Center 02/15/2017 In-center Hemodialysis [facility]- [facility] Dialysis Center Information Center Phone Fax Address [facility] [phone] [address] [facility] [address]
--- OUTSIDE RECORDS SUMMARY | 2024-01-03 16:20 | XMS_ITS | Encounter Summary ---
Author Organization [facility] Address [address] [place] [address] Care Team Providers Care Database Programmer Analyst Name Role Phone Jarad Iglesias DNP Primary Care Provider [phone] Reason for Referral * Follow Up (Routine/Next Available) - New Request Specialty Diagnoses / Procedures Referred By Puneet hallman Referred To Contact Diagnoses Cellulitis of left lower extremity Shaji Younger MD [address] [place] [address] Jarad Iglesias [address] [address] Referral ID Status Reason Start Date Expiration Date Visits Requested Visits Authorized [id number] New Request Continuity of Care 10/14/2018 1 1 Question Answer Reason for Request: Follow up hospitalization for LLE cellulitis Expected Discharge Date (Inpatient Only): 10/13/2018 Encounter Details Date Type Department Care Team (Late st Contact Info) Description 10/13/2018 17:20 EDT - 10/14/2018 14:30 EDT Hospital Encounter [facility] General Medicine Unit [address] [place] [address] Xiomara Mccauley MD [address] [place] [phone] Eliot Muse MD [address] [phone] Cellulitis of left lower extremity (Primary Dx); ESRD (end stage renal disease) ([facility]) Discharge Disposition: Home or Self Care [...] diabetes mellitus with diabetic neuropathy, unspecified-E11.40[ICD-10-CM] Z79.4 prison (current) use of insulin-Z79.4[ICD-10-CM] Z99.2 Dependence on renal dialysis-Z99.2[ICD-10-CM] I25.10 Atherosclerotic heart disease of [place] coronary artery without angina pectoris-I25.10[ICD-10-CM] K21.9 Gastro-esophageal [...] 10/12/2018 ??? ESRD (end stage renal disease) ([facility]) 10/12/2018 Resolved Hospital Problems No resolved problems [...] and chills. He subsequently sought care at [facility], reportedly on presentation to have a fever of 101.1F and was hemodynamically stable. He had a minor lactate elevationat 2.1, and received half a liter of lactated Ringer's and 1.5 g of vancomycin. Initial exam was not concerning for a necrotizing soft tissue infection and he was transferred to [facility] for further evaluation. He improved with vancomycin [...] 1 Tab by mouth at bedtime. 10/14/2018 mv,[id number]-epa -fish (PRORENAL QD) 400-500 mcg-unit capsule Take [...] D/C Summary faxed to Evonne @ # [phone]. YUNI MOORE, # [id number] Weekend CM * [...] 10/14/2018 1237 EDT Rehabilitation Therapies Acute Therapies MainBas[facility] Physical TherapyContact Note Date of Service: 10/14/2018 [...] LLE -daily CBC -follow up cultures from [facility] -tylenol q8hrs prn ?? End-stage renal [...] resident. Eliot Muse MD * Guerda Goldberg, [facility] - 10/13/2018 1052 EDT Addendum: Received [...] needs. Dialysis: Pt will resume his regular [facility] outpatient HD schedule at the [facility] dialysis unit (P: [phone]/F: [phone]) tomorrow, Saturday 10/14. Contacted unit and spoke with PERNELL Robles who confirmed pt is able to return tomorrow and that unit has Cefazolin in stock. Will send d/c summary with antibiotic orders and HD treatment sheet from today via fax. Reinstated dialysis transport with [facility]. Discharge Transportation: Pick-up is scheduled for 1600 today with [facility] (P: [phone]). Pt will be picked up in the [facility] lobby. No voucher needed. Discharge plan discussed with pt and primary team. Pt is in agreement with this plan. GAURI Whitten, MA Stock Manager Ext. [phone] Pager: [phone] * Christina Lamb, [facility] - 10/13/2018 1002 EDT Renal Pharmacy - Admission Progress Note Maurice Rudolph is a 58 y.o. male who dialyzes in [place], [place] on . Recommendations: - Continue calcitriol. [...] of insulin pump, which the patient self-administers IMMIGRATION LAW SPECIALIST. Per Dr. Younger, it is not a continuous pump and the patient was informed to not use while admitted. Insulin aspart sliding scale and bedtime regimens already ordered. - IMMIGRATION LAW SPECIALIST medications and outpatient pharmacy information updated. - [...] history obtained from: Patient, outpatient pharmacy and [facility] records. Medication reconciliation was performed. Discrepancies [...] filled: Phone #: STEVE Taylor (current pharmacy) [place], [place] (used prior to [place] move in 04/2018) For any questions, please contact the renal pharmacist, pager [phone]. If evenings or weekends, pleasecall the central pharmacy at [phone]. Christina Adonis, Pharm.D. * Guerda Goldberg, [facility] - 10/13/2018 0952 EDT Initial Case [...] Directive For Finances: No TRANSPORTATION: Transportation: Medicaid/MedicareTransport [place] Transportation: [facility] CULTURAL, CONGREGATIONAL and/or LANGUAGE factors affecting health care/discharge planning: [...] Listed Home Health: Other: Other (enter in comments)([place] [employer]; Outpatient dialysis TTS @ [facility] dialysis unti) POST HOSPITAL TRANSITION PLAN: Maurice Rudolph is a 58 y/o male who was admitted to [facility] for leg pain. His medical history is significant for CAD, ESRD on HD, GERD, HTN, and T2DM. Met with Maurice today to assess needs for discharge. He presented as AAOx3 and easy to engage. He shared that he resides with his , Kaye, and their 31 y/o son Ze, in a two story home in [place] with ground level entry. Maurice's bedroom is [...] with all ADLs/iADLs which is provided by [facility]. He reported that he also provides assistance and that his son is assisting her while he is hospitalized. 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 He receives services through [place] [employer]. He shared that he is prescribed a probing/white cane but he stated that he does not wish to use it yet. He uses a magnifier to read. Maurice receives dialysis on a TTS outpatient schedule at the [facility] dialysis unit (P: [phone]/F: [phone]). He is transported to his appointments via [facility] (P: [phone]). Confirmed unit has Cefazolin available to administer at dialysis treatments if needed. Maurice is independent with ADLs/iADLs and ambulatory without an assistive device. He did not have anyservices in the community prior to admission and doesn't have any new anticipated skilled needs fordischarge. Maurice will need assistance with a ride home when discharged. GAURI Whitten, MA Stock Manager Ext. [phone] Pager: [phone] * Zahida Munson RN - 10/12/2018 1514 [...] and chills. He subsequently sought care at [facility], reportedly on presentation to have a fever of 101.1F and was hemodynamically stable. He had a minor lactate elevation at 2.1, and received half a liter of lactated Ringer's and 1.5 g of vancomycin. Initial exam was not concerning for a necrotizing soft tissue infection and he was transferred to [facility] for further evaluation. On interview he reports [...] being evaluated for a kidney transplant at [facility]. Does report producing a small amount of urine each day. Review of Systems A complete 10 point ROS was performed and pertinent positive and negative findings listed in HPI, otherwise negative. Past Medical History: Diagnosis Date ??? Coronary artery disease ??? Diabetes mellitus ([facility]) ??? End stage renal disease on dialysis ([facility]) ??? GERD (gastroesophageal reflux disease) ??? Hyperlipidemia [...] LLE -daily CBC -follow up cultures from [facility] -tylenol q8hrs prn End-stage renal disease [...] NO Bruit: WNL Thrill: PRESENT Function: WNL prison access plan: maintain fistula. Labs: What labs [...] B4. Report called to dialysis unit in [facility]. ACCESS ADMISSION DISCHARGE Access Type: Natural [...] (kg): 103.1 Flow (ml/min): 600 n/a Location: [place] Weight (kg): 103.0 Na (mmol/l): 139 n/a [...] (l): 3.0 DIALYSIS LOG Time BP Pulse PCA AP Blood Dial. Temp UFR UF TMP [...] treated at for sending us dialysis in [facility]. Nursing made a continuity call to [...] and chills. He subsequently sought care at [facility], reportedly on presentation to have a fever of 101.1F and was hemodynamically stable. He had a minor lactate elevation at 2.1, and received half a liter of lactated Ringer's and 1.5 g of vancomycin. Initial exam was not concerning for a necrotizing soft tissue infection and he was transferred to [facility] for further evaluation. ?? On interview he [...] being evaluated for a kidney transplant at [facility]. Does report producing a small amount [...] NO Bruit: WNL Thrill: PRESENT Function: WNL prison access plan: remain patent and infection free Labs: per epic Fluid assessm pt up .5kg from tw but has lost actual weight from nbt eating. edema lower extremiteis. will attempt 2000cc net if critline and pt tolerant.o2 on .hypotensive at start. Transplant/Modality Status:working with [facility] on [facility]. Patient Education:todays treatment plan and [...] (kg): n/a Flow (ml/min): 700 n/a Location: [place] Weight (kg): 104.0 Na (mmol/l): 140 n/a Machine #: [id number] Target Weight (kg): 102.0 K (mmol/l): 2.0 [...] Removed (l): DIALYSIS LOG Time BP Pulse PCA AP Blood Dial. Temp UFR UF TMP [...] been on dialysis for 3 years at [facility]. He got admitted with left lower extremity [...] Resource Associate Case Management - Social Pager: #[phone] * Plan of Care - Will Parisi RN - 10/13/2018 7385 EDT Problem: Daily Care Plan Goals Goal: [...] Care - Tiara Bergman RN - 10/12/2018 1218 EDT Problem: Daily Care Plan Goals Goal: [...] bladder soft. Action: Bladder scan: 266ml, notified humanities division chair MD. Response: humanities division chair MD aware, will recheck at 2am. Pt [...] 7.15 4.0 - 10.4 K/cmm 10/14/2018 7:44 [facility] RBC 3.10(L) 4.36 - 5.78 M/cmm 10/14/2018 7:44 [facility] Hemoglobin 10.2(L) 13.8 - 17.3 gm/dl 10/14/2018 7:44 [facility] HCT 30.0(L) 39.5 - 50.2 % 10/14/2018 7:44 [facility] MCV 97(H) 81 - 95 fl 10/14/2018 7:44 [facility] MCH 32.9 27.6 - 33.0 pg 10/14/2018 7:44 [facility] MCHC 34.0 32.8 - 36.4 gm/dl 10/14/2018 7:44 [facility] RDW-CV 14.4(H) <14.2 % 10/14/2018 7:44 [facility] RDW-SD 50.3(H) <46.0 fl 10/14/2018 7:44 [facility] PLT 145 141 - 377 K/cmm 10/14/2018 7:44 [facility] MPV 11.0 9.5 - 12.7 fl 10/14/2018 7:44 [facility] Blood specimen (specimen) BLOOD SPECIMEN / Unknown 10/14/2018 7:13 EDT 10/14/2018 7:33 EDT Shaji Younger MD HEMATOLOGY & PF4 ORD ERABLES Performing Organization Address City/[facility]/ZIP Co de Phone Number [facility] [address] [place] [address] * (ABNORMAL) GLUCOSE, GLUCOMETER (10/14/2018 6:56 EDT) Glucose, Fingerstick 223(H) 70 - 100 mg/dl 10/14/2018 6:58 EDT [facility] Child And Family Therapist ID [id number] 10/14/2018 6:58 EDT [facility] Comment:Test Performed by [facility] BLOOD SPECIMEN / Unknown 10/14/2018 6:56 EDT 10/14/2018 6:58 EDT Xiomara Mccauley MD CHEMISTRY & BLOO D GAS ORDERABLES Performing Organization Address [facility]/ZIP Co de Phone Number [facility] [address] [place] [address] * (ABNORMAL) GLUCOSE, GLUCOMETER (10/13/2018 23:59 EDT) Glucose, Fingerstick 201(H) 70 - 100 mg/dl 10/14/2018 0:01 EDT [facility] Child And Family Therapist ID [id number] 10/14/2018 0:01 EDT [facility] Comment:Test Performed by [facility] BLOOD SPECIMEN / Unknown 10/13/2018 23:59 EDT 10/14/2018 0:01 EDT Xiomara Mccauley MD CHEMISTRY & BLOO D GAS ORDERABLES [facility] [address] [place] [address] * (ABNORMAL) GLUCOSE, GLUCOMETER (10/13/2018 21:27 EDT) Glucose, Fingerstick 265(H) 70 - 100 mg/dl 10/13/2018 21:30 EDT [facility] Child And Family Therapist ID [id number] 10/13/2018 21:30 EDT [facility] Comment:Test Performed by [facility] BLOOD SPECIMEN / Unknown 10/13/2018 21:27 EDT 10/13/2018 21:30 EDT Xiomara Mccauley MD CHEMISTRY & BLOO D GAS ORDERABLES Performing Organization Address City/[facility] Co de Phone Number [facility] [address] [place] [address] * (ABNORMAL) GLUCOSE, GLUCOMETER (10/13/2018 16:04 EDT) Glucose, Fingerstick 265(H) 70 - 100 mg/dl 10/13/2018 16:04 EDT [facility] Child And Family Therapist ID [id number] 10/13/2018 16:04 EDT [facility] Comment:Test Performed by [facility] BLOOD SPECIMEN / Unknown 10/13/2018 16:04 EDT 10/13/2018 16:05 EDT Xiomara Mccauley MD CHEMISTRY & BLOO D GAS ORDERABLES Performing Organization Address [facility] Co de Phone Number [facility] [address] [place] [address] * (ABNORMAL) GLUCOSE, GLUCOMETER (10/13/2018 7:33 EDT) Glucose, Fingerstick 167(H) 70 - 100 mg/dl 10/13/2018 7:38 EDT [facility] Child And Family Therapist ID [id number] 10/13/2018 7:38 EDT [facility] Comment:Test Performed by [facility] BLOOD SPECIMEN / Unknown 10/13/2018 7:33 EDT 10/13/2018 7:38 EDT Xiomara Mccauley MD CHEMISTRY & BLOO D GAS ORDERABLES Performing Organization Address City/[facility]/ZIP Co de Phone Number [facility] [address] [place] [address] * PROTIME (10/13/2018 6:00 EDT) Pro Time 12.3 10.3 - 13.4 secs 10/13/2018 7:38 [facility] I.N.R. 1.0 0.9 - 1.1 Ratio 10/13/2018 7:38 [facility] Comment: Moderate Intensity Coumadin INR = 2.0-3.0 Adjustments in anticoagulant therapy dose should be based upon the INR and NOT the Pro Time. Blood specimen (specimen) BLOOD SPECIMEN / Unknown 10/13/2018 6:00 EDT 10/13/2018 7:16 EDT Shaji Younger MD HEMATOLOGY & PF4 ORD ERABLES Performing Organization Address City/State/[facility] Co de Phone Number [facility] [address] [place] [address] * (ABNORMAL) COMPLETE BLOOD COUNT (10/13/2018 6:00 EDT) WBC 9.59 4.0 - 10.4 K/cmm 10/13/2018 7:30 [facility] RBC 3.20(L) 4.36 - 5.78 M/cmm 10/13/2018 7:30 [facility] Hemoglobin 10.7(L) 13.8 - 17.3 gm/dl 10/13/2018 7:30 [facility] HCT 30.9(L) 39.5 - 50.2 % 10/13/2018 7:30 [facility] MCV 97(H) 81 - 95 fl 10/13/2018 7:30 [facility] MCH 33.4(H) 27.6 - 33.0 pg 10/13/2018 7:30 [facility] MCHC 34.6 32.8 - 36.4 gm/dl 10/13/2018 7:30 [facility] RDW-CV 14.4(H) <14.2 % 10/13/2018 7:30 [facility] RDW-SD 50.1(H) <46.0 fl 10/13/2018 7:30 [facility] PLT 140(L) 141 - 377 K/cmm 10/13/2018 7:30 EDT [facility] MPV 10.5 9.5 - 12.7 fl 10/13/2018 7:30 EDT [facility] Blood specimen (specimen) BLOOD SPECIMEN / Unknown 10/13/2018 6:00 EDT 10/13/2018 7:16 EDT Shaji Younger MD HEMATOLOGY & PF4 ORD ERABLES Performing Organization Address [facility] de Phone Number [facility] [address] [place] [address] * (ABNORMAL) ELECTROLYTES (10/13/2018 6:00 EDT) Sodium 130(L) 136 - 145 mEq/L 10/13/2018 8:26 EDT [facility] Potassium 4.3 3.5 - 5.0 mEq/L 10/13/2018 8:26 EDT [facility] Chloride 89(L) 96 - 110 mEq/L 10/13/2018 8:26 EDT [facility] CO2 26 22 - 32 mEq/L 10/13/2018 8:26 EDT [facility] Blood specimen (specimen) BLOOD SPECIMEN / Unknown 10/13/2018 6:00 EDT 10/13/2018 7:16 EDT Shaji Younger MD CHEMISTRY & BLOOD GA S ORDERABLES Performing Organization Address [facility] de Phone Number [facility] [address] [place] [address] * (ABNORMAL) GLUCOSE, GLUCOMETER (10/12/2018 20:10 EDT) Glucose, Fingerstick 219(H) 70 - 100 mg/dl 10/12/2018 20:11 EDT [facility] Child And Family Therapist ID [id number] 10/12/2018 20:11 EDT [facility] Comment:Test Performed by [facility] BLOOD SPECIMEN / Unknown 10/12/2018 20:10 EDT 10/12/2018 20:11 EDT Xiomara Mccauley MD CHEMISTRY & BLOO D GAS ORDERABLES Performing Organization Address [facility] Co de Phone Number [facility] [address] [place] [phone] * (ABNORMAL) GLUCOSE, GLUCOMETER (10/12/2018 18:34 EDT) Glucose, Fingerstick 197(H) 70 - 100 mg/dl 10/12/2018 18:48 EDT [facility] Child And Family Therapist ID [id number] 10/12/2018 18:48 EDT [facility] Comment:Test Performed by [facility] BLOOD SPECIMEN / Unknown 10/12/2018 18:34 EDT 10/12/2018 18:48 EDT Xiomara Mccauley MD CHEMISTRY & BLOO D GAS ORDERABLES Performing Organization Address [facility] Co de Phone Number [facility] [address] [place] [address] * (ABNORMAL) GLUCOSE, GLUCOMETER (10/12/2018 14:10 EDT) Glucose, Fingerstick 134(H) 70 - 100 mg/dl 10/12/2018 14:10 EDT [facility] Child And Family Therapist ID [id number] 10/12/2018 14:10 EDT [facility] Comment:Test Performed by [facility] BLOOD SPECIMEN / Unknown 10/12/2018 14:10 EDT 10/12/2018 14:11 EDT Xiomara Mccauley MD CHEMISTRY & BLOO D GAS ORDERABLES Performing Organization Address [facility] Co de Phone Number [facility] [address] [place] [address] * (ABNORMAL) PROTIME (10/12/2018 14:06 EDT) Pro Time 13.6(H) 10.3 - 13.4 secs 10/12/2018 14:38 EDT [facility] I.N.R. 1.2(H) 0.9 - 1.1 Ratio 10/12/2018 14:38 [facility] Comment: Moderate Intensity Coumadin INR = 2.0-3.0 Adjustments in anticoagulant therapy dose should be based upon the INR and NOT the Pro Time. Blood specimen (specimen) BLOOD SPECIMEN / Unknown 10/12/2018 14:06 EDT 10/12/2018 14:14 EDT Shaji Younger MD HEMATOLOGY & PF4 ORD ERABLES [facility] [address] [place] [address] * (ABNORMAL) COMPLETE BLOOD COUNT (10/12/2018 14:06 EDT) WBC 10.31 4.0 - 10.4 K/cmm 10/12/2018 14:33 [facility] RBC 3.42(L) 4.36 - 5.78 M/cmm 10/12/2018 14:33 [facility] Hemoglobin 11.2(L) 13.8 - 17.3 gm/dl 10/12/2018 14:33 [facility] HCT 33.2(L) 39.5 - 50.2 % 10/12/2018 14:33 [facility] MCV 97(H) 81 - 95 fl 10/12/2018 14:33 [facility] MCH 32.7 27.6 - 33.0 pg 10/12/2018 14:33 [facility] MCHC 33.7 32.8 - 36.4 gm/dl 10/12/2018 14:33 [facility] RDW-CV 14.6(H) <14.2 % 10/12/2018 14:33 [facility] RDW-SD 51.2(H) <46.0 fl 10/12/2018 14:33 [facility] PLT 150 141 - 377 K/cmm 10/12/2018 14:33 [facility] MPV 10.2 9.5 - 12.7 fl 10/12/2018 14:33 EDT [facility] Blood specimen (specimen) BLOOD SPECIMEN / Unknown 10/12/2018 14:06 EDT 10/12/2018 14:14 EDT Shaji Younger MD HEMATOLOGY & PF4 ORD ERABLES Performing Organization Address [facility] de Phone Number [facility] [address] [place] [address] * (ABNORMAL) ELECTROLYTES (10/12/2018 14:06 EDT) Sodium 131(L) 136 - 145 mEq/L 10/12/2018 14:49 EDT [facility] Potassium 4.2 3.5 - 5.0 mEq/L 10/12/2018 14:49 T [facility] Chloride 90(L) 96 - 110 mEq/L 10/12/2018 14:49 EDT [facility] CO2 29 22 - 32 mEq/L 10/12/2018 14:49 EDT [facility] Blood specimen (specimen) BLOOD SPECIMEN / Unknown 10/12/2018 14:06 EDT 10/12/2018 14:14 EDT Shaji Younger MD CHEMISTRY & BLOOD GA S ORDERABLES Performing Organization Address [facility] de Phone Number [facility] [address] [place] [address] * HEMOGLOBIN A1C (10/12/2018 14:06 EDT) Hemoglobin A1C 9.7 % 10/12/2018 15:02 EDT [facility] Comment: Reference Range: <5.7% Normal 5.7-6.4% Prediabetes =>6.5% Diagnostic for diabetes (if confirmed) Goals for glycemic control in diabetes ADA 2017 For non adults with diabetes: ?? Target <7.0% For children and adolescents with type 1 diabetes: ?? Target <7.5% More or less stringent targets may be appropriate for individual patients. Est Avg Glucose 232 mg/dl 9 15:02 EDT [facility] Comment: eAG represents the A1c result expressed as average glucose in mg/dl. Blood specimen (specimen) BLOOD SPECIMEN / Unknown 10/12/2018 14:06 EDT 10/12/2018 14:14 EDT Shaji Younger MD CHEMISTRY & BLOOD GA S ORDERABLES [facility] [address] [place] [address] documented in this encounter Visit Diagnoses Diagnosis Cellulitis- Primary Cellulitis and abscess of unspecified site Cellulitis of left lower extremity Cellulitis and abscess of leg, except foot ESRD (end stage renal disease) ([facility]) End stage renal disease ESRD (end stage renal disease) ([facility]) End stage renal disease documented in [...] mcg into the vein every Tuesday (Dialysis). mv,Fv-CT-D0-OM-3-dha-ep a-fish (PRORENAL QD) 400-500 mcg-unit capsule Take [...] 09/30 documented in this encounter Care Teams Database Programmer Analyst Relationship Specialty Start Date End Date Jarad Iglesias, DANIKA [facility] [place] [address] PCP - General 10/12/18 documented as of this encounter
[2024-01-03 17:15] LABS: Abs Immature Grans 0.04 10^3/uL (0.0-0.06); Absolute Basophil Count 0.06 10^3/uL (0.0-0.2); Absolute Eosinophil Count 0.76 10^3/uL (0.0-0.7); Absolute Lymphocyte Count 0.88 10^3/uL (1.2-3.4); Absolute Monocyte Count 0.49 10^3/uL (0.1-0.8); Absolute Neutrophil Count 4.86 10^3/uL (1.2-6.7); Basophils % 0.8 %; Eosinophils % 10.7 %; HCT 33.6 % (40.0-50.0); HGB 10.8 g/dL (13.5-17.5); Immature Grans % 0.6 %; Lymphocytes % 12.4 %; MCH 31.7 pg (27.0-33.0); MCHC 32.1 % (32.0-36.0); MCV 99 fL (80-95); MPV 10.2 fL (8.0-11.0); Monocytes % 6.9 %; Neutrophils % 68.6 %; Platelet Count 164 10^3/uL (130-400); RBC 3.41 10^6/uL (4.36-5.78); RDW 16.9 % (11.8-14.1); RDW-SD 60.8 fL; WBC 7.09 10^3/uL (4.4-10.8)
[2024-01-03 17:30] LABS: ALT 17 U/L (16-63); AST 18 U/L (15-37); Albumin 3.6 g/dL (3.4-5.0); Alkaline Phosphatase 83 U/L (46-116); Anion Gap 9.9 mmol/L (3-11); BUN 57 mg/dL (7-18); Bilirubin, Total 0.24 mg/dL (0.2-1.0); C-Reactive Protein 3.47 mg/dL (<or=0.5); CO2 28.1 mmol/L (21.0-32.0); Chloride 98 mmol/L (98-107); Estimated GFR 5.71 (mL/min/1.73m2); Glucose 227 mg/dL (74-106); Magnesium 2.5 mg/dL (1.8-2.4); Potassium 5.2 mmol/L (3.5-5.1); Sodium 136 mmol/L (136-145); Total Protein 8.1 g/dL (6.4-8.2)
[2024-01-03 17:32] LABS: CREATININE 9.4 mg/dL (0.70-1.30)
--- NOTE | 2024-01-03 17:35 | ED.GENADUL_ITS ---
Discharge Plan Discharge Details Chief Complaint: Cellulitis Primary Care Provider: Jonatan Ambrosio ED Provider: Lani Hobson Home Meds and New Rx's Prescriptions: No Action sevelamer carbonate [Renvela] 800 mg tablet 800 mg PO TID gabapentin 300 mg capsule 300 mg PO TID albuterol sulfate [Ventolin HFA] 90 mcg/actuation HFA aerosol inhaler 2 puff inhalation Q6H PRN (Reason: shortness of breath or wheezing) Qty: 8.5 4RF fluticasone furoate-vilanterol [Breo Ellipta] 100-25 mcg/dose blister with device 1 inh inhalation DAILY Qty: 60 3RF ketoconazole 2 % cream 1 applic topical DAILY Qty: 120 6RF Rx Instructions: Apply to toenails once daily fluticasone propionate [Flonase Allergy Relief] 50 mcg/actuation spray,suspension 1 spray intranasal BID Rx Instructions: administer into each nostril insulin glargine [Basaglar KwikPen U-100 Insulin] 100 unit/mL (3 mL) insulin pen 60 unit subcut HS (DME) Oxygen Tank See Rx Instructions .Route Rx Instructions: continuous at 2 L atorvastatin [Lipitor] 40 mg tablet 40 mg PO HS Patient Comments: TAKE ONE TABLET BY MOUTH EVERY EVENING bumetanide 2 mg tablet 2 mg PO BID (DME) lancets 1 EACH misc 1 ea Miscellaneous QID Qty: 400 Rx Instructions: DX: 250.0 IDDM (DME) BD Regular Bevel [place] 1 EACH needle 1 ea Intrauterine AC Qty: 100 Rx Instructions: insulin pen needles (DME) pen needle, diabetic 1 EACH needle 1 ea Sub-Q TID Qty: 100 Rx Instructions: 31G X 1 DX: 250 (DME) Blood Glucose Test 1 EACH strip 1 ea Miscellaneous QID Qty: 400 Rx Instructions: DX:250.0 IDDM One touch ultra sertraline 50 mg tablet 50 mg PO DAILY insulin aspart U-100 [Novolog FlexPen U-100 Insulin] 100 unit/mL (3 mL) insulin pen 16 unit subcut DIRECTED Rx Instructions: 16-20 U hs amlodipine 10 mg tablet 10 mg PO DAILY diclofenac sodium [Aleve (diclofenac)] 1 % gel 2 g topical QID Rx Instructions: apply to single elbow, wrist or hand; for hand includes palm/fingers/back of hand (DME) EasiVent Holding Chamber Spacer See Rx Instructions .Route Rx Instructions: As directed tamsulosin 0.4 mg capsule 0.4 mg PO DAILY albuterol sulfate [Ventolin HFA] 90 mcg/actuation HFA aerosol inhaler 2 puff inhalation Q6H PRN aspirin 325 mg tablet 180 mg PO DAILY clindamycin HCl 150 mg capsule 450 mg PO TID 10 Days Qty: 90 0RF Rx Instructions: Take 3 capsules by mouth 3 times daily for the next 10 days with yogurt or a probiotic. clindamycin HCl 150 mg capsule 450 mg PO TID 10 Days Qty: 90 0RF HPI General Date/Time Provider Initiated Documentation: 01/03/24 16:05 . Limitations to Documentation: no limitations . Information obtained by: patient and old records reviewed . HPI Narrative: MDM: This is a 63-year-old male patient with a history of diabetes, hypertension, hemodialysis dependent, history of restrictive lung disease on chronic O2, and a history of known osteomyelitis with a gangrenous ulcer of the fifth toe of the right foot, currently on clindamycin, presenting for evaluation from his medical administrative assistant office. The differentials I am most consider those that he has been diagnosed with previously, which includes cellulitis, osteomyelitis, ulcers, necrotizing fasciitis/infection, certainly considered sepsis/bacteremia, kidney dysfunction, electrolyte derangement, liver disease. Unfortunately, we do not have the ability to revascularize this patient in this hospital, and do not have hemodialysis available for our inpatients. For this reason I suspect the patient will require transfer to another facility for definitive management of his illness. We will repeat laboratory studies to include CBC, CMP, and I will provide the patient with his dose of clindamycin, 450 mg. ED Course: I reviewed the patient's laboratory studies, which reveal no leukocytosis, baseline anemia of 10.8, and no thrombocytopenia. Chemistry panel reveals a mild hyperkalemia to 5.2 with no associated EKG changes. BUN and creatinine are elevated consistent with his ESRD, no other significant electrol yte derangements or evidence of liver dysfunction. Patient does have a mild elevation in his CRP to 3.4. I reached out to the vascular surgery team at [facility], and discussed this patient's case. As the patient does have pedal pulses they would not empirically revascularize, but do believe he would benefit from a more robust vascular workup. For this reason I discussed the case with the [facility] ER provider Dr. Enciso, who is graciously accepted this patient for ED to ED transfer for vascular evaluation and definitive management of his gangrenous toe. Given at [facility] ED is on surge capacity, he will need to be transferred after midnight, and as he is hemodynamically appropriate with no evidence of rapidly progressive infection to suggest in HPI I do feel that this is an appropriate use of resources. While under my care in the emergency department the patient remained hemodynamically appropriate, did not require any urgent interventions, and he was transferred from this department with EMS without incident. His next dose of clindamycin will be due at 0 140. All further care per the accepting physician at [facility] Lani Hobson MD HPI: This is a 63-year-old male patient with a past medical history significant for hypertension, diabetes, hemodialysis dependent, and a history of restrictive lung disease on 2 L of O2 by nasal cannula, who has known osteomyelitis with a gangrenous diabetic foot ulcer of the fifth toe of the right foot, presenting from his podiatry with the need for revascularization prior to amputation. The patient's ulcer has been present for several weeks, was started on antibiotics on 12/27, clindamycin 3 times daily, and was seen at his medical administrative assistant for sharp debridement today. The patient would benefit from a revascularization proce dure, which unfortunately cannot be done at this hospital. The patient's outpatient medical administrative assistant recommended that he present to [facility] or [facility], but the patient was unable to arrange transportation and so was sent here for evaluation. The patient reports that he is in an unchanged state of health, has been taking all medications as prescribed and reports that his pain is controlled. He has not noted fevers or chills, has been eating and drinking normally, makes a very small amount of urine, but is otherwise been in his normal state of health. The patient was last dialyzed on Tuesday, is on Tuesday schedule, states that he is feeling well. His work of breathing is at his baseline and he has not had any increase in his oxygen requirement. Exam: Gen: Awake and alert, in no apparent distress HEENT: Non-icteric sclera Neck: Supple Lungs: No apparent respiratory distress, normal respiratory effort. Lung sounds clear and equal bilaterally CV: Appears well perfused, heart with regular rate and rhythm Abdomen: Non-distended MSK: Moves 4 extremities without apparent limitation in ROM. The patient's right foot is in a surgical shoe, photos taken at the podiatry office just prior to arrival at the emergency department were reviewed, revealing an ulcer of the dorsum of the foot that is status post sharp debridement, as well as an ulcer overlying the superior aspect of the fifth toe. Surrounding redness and induration appreciated. Skin: Visualized skin without rashes, cyanosis. Neuro: Normal Gait, no obvious focal deficits or facial asymmetry. Speaks in full, clear sentences. Psych: Appropriate for situation. Related Data Home Medications ?Medication ?Instructions ?Recorded ?Confirmed lancets 28 gauge #400 ea 08/18/12 01/03/24 needle (disp) 21 G 21 gauge x 1 ##100 08/31/12 01/03/2405/03 (BD Regular Bevel [place]) pen needle, diabetic 31 gauge x ##100 11/15/13 01/03/2405/04 blood sugar diagnostic (Blood #400 strips 12/05/13 01/03/24 Glucose Test strips) sevelamer carbonate 800 mg tablet 800 mg PO TID 04/27/19 01/03/24 (Renvela) sertraline 50 mg tablet 50 mg PO DAILY 03/11/20 01/03/24 fluticasone propionate 50 1 spray intranasal BID 11/11/20 01/03/24 mcg/actuation nasal spray,suspension (Flonase Allergy Relief) gabapentin 300 mg capsule 300 mg PO TID 03/17/22 01/03/24 Oxygen 05/14/22 01/03/24 albuterol sulfate 90 mcg/actuation 2 puff inhalation Q6H PRN 06/11/22 01/03/24 aerosol inhaler (Ventolin HFA) shortness of breath or wheezing #8.5 grams fluticasone furoate 100 1 inh inhalation DAILY #60 ea 06/11/22 01/03/24 mcg-vilanterol 25 mcg/dose inhalation powder (Breo Ellipta) insulin aspart U-100 100 unit/mL 16 unit subcut DIRECTED 09/01/22 01/03/24 (3 mL) subcutaneous pen (Novolog FlexPen U-100 Insulin aspart) albuterol sulfate 90 mcg/actuation 2 puff inhalation Q6H PRN 05/03/23 01/03/24 aerosol inhaler (Ventolin HFA) amlodipine 10 mg tablet 10 mg PO DAILY 05/03/23 01/03/24 diclofenac sodium 1 % topical gel 2 g topical QID 05/03/23 01/03/24 (Aleve (diclofenac)) inhalational spacing device 05/03/23 01/03/24 (EasiVent Holding Chamber) tamsulosin 0.4 mg capsule 0.4 mg PO DAILY 05/03/23 01/03/24 aspirin 325 mg tablet 180 mg PO DAILY 11/17/23 01/03/24 atorvastatin 40 mg tablet (Lipitor) 40 mg PO HS 11/17/23 01/03/24 bumetanide 2 mg tablet 2 mg PO BID 11/17/23 01/03/24 insulin glargine 100 unit/mL (3 60 unit subcut HS 12/12/23 01/03/24 mL) subcutaneous pen (Basaglar KwikPen U-100 Insulin) ketoconazole 2 % topical cream 1 applic topical DAILY #120 grams 12/12/23 01/03/24 clindamycin HCl 150 mg capsule 450 mg (3 x 150 mg) PO TID 10 days 12/28/23 01/03/24 #90 caps clindamycin HCl 150 mg capsule 450 mg (3 x 150 mg) PO TID 12/28/23 01/03/24 Cellulitis 10 days #90 caps Previous Rx's ?Medication ?Instructions ?Recorded albuterol sulfate 90 mcg/actuation 2 puff inhalation Q6H PRN 06/11/22 aerosol inhaler (Ventolin HFA) shortness of breath or wheezing #8.5 grams fluticasone furoate 100 1 inh inhalation DAILY #60 ea 06/11/22 mcg-vilanterol 25 mcg/dose inhalation powder (Breo Ellipta) ketoconazole 2 % topical cream 1 applic topical DAILY #120 grams 12/12/23 clindamycin HCl 150 mg capsule 450 mg (3 x 150 mg) PO TID 10 days 12/28/23 #90 caps clindamycin HCl 150 mg capsule 450 mg (3 x 150 mg) PO TID 12/28/23 Cellulitis 10 days #90 caps Allergies Allergy/AdvReac Type Severity Reaction Status Date / Time ciprofloxacin Allergy Intermediate rash from Verified 01/03/24 16:10 IV General Stated Complaint: Cellulitis ABBIE: 3 Course Vital Signs Vital signs: Vital Signs Temperature 36.5 C 01/03/24 16:08 Pulse 98 H 01/03/24 16:08 Respiratory Rate 14 01/03/24 16:08 Blood Pressure 144/65 H 01/03/24 16:08 Pulse Oximetry 94 01/03/24 16:08 Temperature 36.5 C 01/03/24 16:08 Temperature Source Oral 01/03/24 16:08 Pulse 98 H 01/03/24 16:08 Respiratory Rate 14 01/03/24 16:08 Blood Pressure 144/65 H 01/03/24 16:08 Blood Pressure Position Sitting 01/03/24 16:08 Pulse Oximetry 94 01/03/24 16:08 Oxygen Delivery Method Nasal Cannula 01/03/24 16:08 Oxygen Flow Rate 1 01/03/24 16:08 Pain Level 0 01/03/24 16:08 Lab/Test Results Lab/Test Results: Laboratory Tests Range/Units 01/03/24 17:03 WBC (4.4-10.8) 10^3/uL 7.09 RBC (4.36-5.78) 10^6/uL 3.41 L Hgb (13.5-17.5) g/dL 10.8 L Hct (40.0-50.0) % 33.6 L MCV (80-95) fL 99 H MCH (27.0-33.0) pg 31.7 MCHC (32.0-36.0) % 32.1 RDW (11.8-14.1) % 16.9 H Plt Count (130-400) 10^3/uL 164 MPV (8.0-11.0) fL 10.2 Immature Gran % % 0.6 Neutrophils % % 68.6 Lymphocytes % % 12.4 Monocytes % % 6.9 Eosinophils % % 10.7 Basophils % % 0.8 Nucleated RBC % (0.0-0.3) % 0.0 Absolute Neutrophils (1.2-6.7) 10^3/uL 4.86 Absolute Lymphocytes (1.2-3.4) 10^3/uL 0.88 L Absolute Monocytes (0.1-0.8) 10^3/uL 0.49 Absolute Eosinophils (0.0-0.7) 10^3/uL 0.76 H Absolute Basophils (0.0-0.2) 10^3/uL 0.06 Sodium (136-145) mmol/L 136 Potassium (3.5-5.1) mmol/L 5.2 H Chloride (98-107) mmol/L 98 Carbon Dioxide (21.0-32.0) mmol/L 28.1 Anion Gap (3-11) mmol/L 9.9 BUN (7-18) mg/dL 57 H Creatinine (0.70-1.30) mg/dL 9.4 H* Est GFR (CKD-EPI 2020) (mL/min/1.73m2) 5.71 Glucose (74-106) mg/dL 227 H Calcium (8.5-10.1) mg/dL 9.0 Magnesium (1.8-2.4) mg/dL 2.5 H Total Bilirubin (0.2-1.0) mg/dL 0.24 AST (15-37) U/L 18 ALT (16-63) U/L 17 Alkaline Phosphatase (46-116) U/L 83 C-Reactive Protein (<or=0.5) mg/dL 3.47 H Total Protein (6.4-8.2) g/dL 8.1 Albumin (3.4-5.0) g/dL 3.6 Medical Decision Making Quality:SDOH Health Related Social Needs: No Data to Display PFSH All Active Problems (Updated 01/03/24 @ 16:04 by Nell Blas DPM) Cellulitis (Acute) Gangrene of toe of right foot (Acute) Cellulitis and abscess of foot (Acute) Pain in right foot (Acute) Ulcer of right foot with fat layer exposed (Acute) Chronic rhinitis (Acute) Respiratory failure with hypoxia (Acute) Bronchiectasis (Acute) Restrictive lung disease (Acute) Arthritis (Acute) Back, Hand Blindness, one eye (Acute) Arteriovenous fistula of left upper extremity (Acute) Dependence on hemodialysis (Acute) Finger pain (Acute) Anterior displaced fracture of sternal end of left clavicle, initial encounter for closed fracture (Acute) TBI (traumatic brain injury) (Acute) Lower back pain (Acute) Allergic rhinitis (Acute) Osteoporosis (Chronic) Tremor (Acute) Severe sleep apnea (Acute) Memory impairment (Acute) Hypoxia (Acute) Scarring of lung (Acute) Premature ventricular beat (Acute) Corns and callosities (Acute) Nail dystrophy (Acute) No-show for appointment (Acute) Secondary adhesive capsulitis of right shoulder (Acute) Trigger finger, right ring finger (Acute) Injection: 04/30/2019 Trigger finger, left middle finger (Acute) Colorectal polyps (Acute ~01/22/19) hyperplastic polyps Medical History Hx of pancreatitis Blind right eye Heart disease Depression Hyperlipidemia HTN (hypertension) Diabetic retinopathy Type 2 diabetes mellitus ESRD (end stage renal disease) AV fistula for hemodialysis CHF (congestive heart failure) Anxiety with depression Coronary arteriosclerosis Arteriovenous fistula lt arm Surgical History S/P eye surgery S/P CABG (coronary artery bypass graft) Open Carpal Tunnel release (~2001) b/l Arthroplasty of knee (~1973) per pt knee arthroscopy not a TKA! Family History Father Heart disease Diabetes Mother Diabetes Renal disease Brother , from cardiac disease in his 50's Heart disease Social History Smoking/Tobacco Use Status: Former Tobacco Use Quit Date: 05/02/97 Pack-years: 15 Smoking risk assessment performed?: Yes Alcohol Intake: former Drug use: Current Sobriety Substance use type: marijuana Details: marijuana in the 70's Household members: spouse and children Housing: house Number of Children: 1 current occupation: Disabled Current gender identity: male What is your relationship status?: Panel score (0-1 are the most socially isolated patients): 1 What type of physical activity do you participate in: other Details: under desk qubi Seatbelt use: always Do you feel safe at home: Yes Do you feel safe in your relationship?: Yes
[2024-01-03] MEDS: Clindamycin 150 MG CAP 450 MG PO (17:40)
--- NOTE | 2024-01-03 18:00 | RT.EKG_ITS ---
APPROVED REPORT Exam: Resting ECG Reason for Exam: electrolyte abnormality Patient Location: E HR:78 bpm ECG Measurements Heart Rate 78 AXIS MO 220 P 38 QRSd 98 QRS 68 QT 357 T 116 QTc 407 Conclusion Sinus rhythm 1st degree HB with MO 220ms No STEMI Compared to prior, Twaves inverted in I, AvL, and T wave inversion resolved lead III
[2024-01-03 19:32] VITALS: BP 159/62; PULSE 80; RESP 16; O2SAT 98
[2024-01-03 22:33] LABS: ESR 72 mm/hr (0-20)
[2024-01-03 22:46] VITALS: BP 177/74; PULSE 83; RESP 16; TEMP 36.9; O2SAT 98
--- NOTE | 2024-01-04 08:16 | NUR.NOTE ---
Nursing Note: [facility] ED called looking for information on a patient that was transfered to their ED last night. Got in the chart to obtain the information.
== END 2024-01-03 23:16 | disposition short-term general hospital (02) ==
LOC: ER 16:09
PROVIDERS: Emergency Provider Emergency Medicine; PCP Student in an Organized Health Care Education/Training Program
DX: E11.52 Type 2 diabetes mellitus with diabetic peripheral angiopathy with gangrene (principal); L03.116 Cellulitis of left lower limb; Z99.2 Dependence on renal dialysis; E11.621 Type 2 diabetes mellitus with foot ulcer
CPT/HCPCS: 36415; 80053; 85652; 93005; 99285; 83735; 85025; 86140; 93010

== ENCOUNTER 2024-02-24 16:29 | Outpatient (REF) | payer MEDICARE, MEDICAID, SELFPAY ==
--- OUTSIDE RECORDS SUMMARY | 2024-02-24 16:53 | XMS_ITS ---
Author Name Stephanie Davisberly Address [address] [place] [address] Phone [phone] Organization [facility] e, NA DOCUMENT DISCLAIMER Multiple document versions may exist, please be sure you review the latest version. The information in the [facility] Progress Note Document represents a providers documented clinical note containing certain health and medical information. It may not contain the complete medical history for the patient and should be independently verified. The represented time in the document is Eastern Time PROVIDER ROUNDING NOTE BASIC Patient:?SINDI?FERNANDA,?1960,?63y,?M Dialysis?Location:?[facility] Attending?Well Logging Operator Mud Analysis:?Too?Eddie Service?Date:?02/24/2024 Service?Provider:?Nettie?Susan,?SENIOR TEST ANALYST I?met?face?to?face?with?the?patient?today. OVERVIEW The?patient?presented?with?ESRD?on?dialysis Primary?cause?of?renal?failure:?Type?2?diabetes?mellitus&#16 0;with?diabetic?chronic?kidney?disease Comments:?02/24/24-?seen?and?examined?on?dialysis.?Tolerating&#16 0;treatment?well.?No?issues?or?patient?complaints.? 02/14?having?some???Myoclonus/tremor?,?to?see?PCP LAST?HOSPITALIZATION Discharge?Diagnosis:?H05.029?Osteomyelitis?of?unspecified?orbit Admission?Date?01/04/24 Discharge?Date?01/10/24 DIALYSIS?PRESCRIPTION ??IHD?3x?Week?Start?date:?01/04/24 ??Dialyzer:?180NRe?Optiflux ??BFR:?450 ??DFR:?Manual?800 ??Potassium:?2.0 ??Sodium:?137 ??EDW:?100.5 ??Duration:?4:00 ??Calcium:?2.5 ??Bicarb:?35 ??Rx?updated?on:?01/04/2024 TREATMENT?ASSESSMENT BP?Stand?Pre ??02/22/2024:?146/41 ??02/20/2024:?147/56 ??02/17/2024:?152/82 BP?Sit?Pre ??02/22/2024:?119/39 ??02/20/2024:?128/68 ??02/17/2024:?146/70 BP?Stand?Post ??02/22/2024:?118/55 ??02/20/2024:?108/55 ??02/17/2024:?130/70 BP?Sit?Post ??02/22/2024:?114/58 ??02/20/2024:?126/74 ??02/17/2024:?154/57 Tx?Duration ??02/22/2024:?4:00 ??02/20/2024:?4:04 ??02/17/2024:?4:01 Missed?Treatments 0?-?last?30?days 0?-?last?60?days FLUID?ASSESSMENT EDW?(kg) ??02/22/2024:?100.5 ??02/20/2024:?100.5 ??02/17/2024:?100.5 Weight?Pre?(kg) ??02/22/2024:?103.1 ??02/20/2024:?104.7 ??02/17/2024:?104.4 Weight?Post?(kg) ??02/22/2024:?101.3 ??02/20/2024:?101.8 ??02/17/2024:?101.2 PWV?(kg) ??02/22/2024:?0.8 ??02/20/2024:?1.3 ??02/17/2024:?0.7 UF?Rate?(mL/kg/hr) ??02/22/2024:?4.4 ??02/20/2024:?7 ??02/17/2024:?7.9 ADEQUACY?ASSESSMENT spKt/V,?URR ??02/06/2024:?1.58,?74.0 ??01/02/2024:?1.05,?58.0 ??12/05/2023:?1.8,?78.0 ACCESS?ASSESSMENT ??Access?Type:?AVFistula ??Access?SubType:?Standard ??Access?Status:?Active?(In?Use)?-?09/14/2017 ??Access?Location:?Left?Forearm ??Created:?04/13/2017 Flow ??02/17/2024:?1576 ??12/07/2023:?1367 ??11/16/2023:?886 ANEMIA?ASSESSMENT HGB,?TSAT ??02/20/2024:?11.5,?- ??02/13/2024:?11.3,?- ??02/06/2024:?10.7,?40.0 ?? Ferritin ??02/06/2024:?841.0 ??01/02/2024:?915.0 ??12/05/2023:?1057.0 Mircera,?IVP?(mcg) ??02/03/2024:?150 ??01/20/2024:?150 ??12/16/2023:?150 BMM?ASSESSMENT PTH,?Intact ??02/06/2024:?387.0 ??01/02/2024:?506.0 ??12/05/2023:?410.0 ?? Calcium,?Phosphorus ??02/20/2024:?8.3,?- ??02/13/2024:?8.0,?- ??02/06/2024:?8.5,?5.3 Vitamin?D?(Calcitriol)?Oral?(mcg) ??02/22/2024:?1.00 ??02/20/2024:?1.00 ??02/17/2024:?1.00 NUTRITION?ASSESSMENT Potassium,?Albumin ??02/06/2024:?4.8,?4.0 ??01/16/2024:?3.8,?- ??01/02/2024:?5.2,?3.9 ?? eNPCR ??02/06/2024:?0.82 ??01/02/2024:?0.72 ??12/05/2023:?0.88 DIAGNOSIS Chief?Complaint:?N18.6?End?stage?renal?disease Patient?data?updated?02/24/2024?at?8:55?AM Signed?By:?Susan,?Nettie,?SENIOR TEST ANALYST??on?02/24/2024?8:55:47 AM END OF DOCUMENT
--- OUTSIDE RECORDS SUMMARY | 2024-02-24 16:53 | XMS_ITS ---
Author Name Simi Mcfadden Address [address] [place] [id number] Phone [phone] Organization [facility] e, NA DOCUMENT DISCLAIMER Multiple document versions may exist, please be sure you review the latest version. The information in the [facility] Progress Note Document represents a providers documented clinical note containing certain health and medical information. It may not contain the complete medical history for the patient and should be independently verified. The represented time in the document is Eastern Time PROVIDER ROUNDING NOTE BASIC Patient:?SINDI?FERNANDA,?1960,?63y,?M Dialysis?Location:?[facility] Attending?Coin Machine Mechanic:?Too?Eddie Service?Date:?01/16/2024 Service?Provider:?Simi?Lesa,?GROUP TESTER I?met?face?to?face?with?the?patient?today. OVERVIEW The?patient?presented?with?ESRD?on?dialysis Primary?cause?of?renal?failure:?Type?2?diabetes?mellitus&#16 0;with?diabetic?chronic?kidney?disease Comments:?01/13/24-?Tolerating?treatment?well.?No?patient?complain ts.?UF?goal?not?correctly?entered?into?machine?at?start ?of?tx-?will?not?meet?EDW?today.?Pt?is?getting&#16 0;IV?abx?s/p?hospitalization?with?OM?and?toe?amputation. 12/24/23-?seen?and?examined?on?HD.?Tolerated?treatment?well.& #160;No?patient?issues?or?complaints.? 12/14/23-?pt?tolerating?tx?well,?no?issues?or?complaints.&#16 0;EDW,?BP?anemia,?adequacy?and?access?flows?are?appropriate.? ?11/21/23-?Tolerated?tx?well.?Gained?extra?fluid?weight? over?the?weekend,?pt?will?watch?fluid?intake?and?will&# 160;try?to?pull?extra?fluid?as?tolerated?over?the?next& #160;couple?of?treatments.?Denies?SOB?today.?No?issues?or pt?complaints.? 11/13?lightheaded?at?home/?post?bp?120/40,?given?wide?pu lse?pressure,?will?increase?EDW?1?kg Medications?and?labs?reviewed. LAST?HOSPITALIZATION Discharge?Diagnosis:?H05.029?Osteomyelitis?of?unspecified?orbit Admission?Date?01/04/24 Discharge?Date?01/10/24 DIALYSIS?PRESCRIPTION ??IHD?3x?Week?Start?date:?01/04/24 ??Dialyzer:?180NRe?Optiflux ??BFR:?450 ??DFR:?Manual?800 ??Potassium:?2.0 ??Sodium:?137 ??EDW:?100.5 ??Duration:?4:00 ??Calcium:?2.5 ??Bicarb:?35 ??Rx?updated?on:?01/04/2024 TREATMENT?ASSESSMENT BP?Stand?Pre ??01/13/2024:?127/53 ??01/11/2024:?153/59 ??01/02/2024:?157/77 BP?Sit?Pre ??01/13/2024:?128/66 ??01/11/2024:?150/74 ??01/02/2024:?163/80 BP?Stand?Post ??01/11/2024:?123/54 ??01/02/2024:?156/66 BP?Sit?Post ??01/13/2024:?159/86 ??01/11/2024:?129/76 ??01/02/2024:?188/60 Tx?Duration ??01/13/2024:?4:05 ??01/11/2024:?4:01 ??01/02/2024:?3:28 Missed?Treatments 0?-?last?30?days 0?-?last?60?days FLUID?ASSESSMENT EDW?(kg) ??01/13/2024:?100.5 ??01/11/2024:?100.5 ??01/02/2024:?100.0 Weight?Pre?(kg) ??01/13/2024:?103.5 ??01/11/2024:?102.6 ??01/02/2024:?105.2 Weight?Post?(kg) ??01/13/2024:?101.4 ??01/11/2024:?101.1 ??01/02/2024:?101.1 PWV?(kg) ??01/13/2024:?0.9 ??01/11/2024:?0.6 ??01/02/2024:?1.1 UF?Rate?(mL/kg/hr) ??01/13/2024:?5.1 ??01/11/2024:?3.7 ??01/02/2024:?11.7 ADEQUACY?ASSESSMENT spKt/V,?URR ??01/02/2024:?1.05,?58.0 ??12/05/2023:?1.8,?78.0 ??10/31/2023:?7.46,?97.0 ACCESS?ASSESSMENT ??Access?Type:?AVFistula ??Access?SubType:?Standard ??Access?Status:?Active?(In?Use)?-?09/14/2017 ??Access?Location:?Left?Forearm ??Created:?04/13/2017 Flow ??12/07/2023:?1367 ??11/16/2023:?886 ??10/05/2023:?1427 ANEMIA?ASSESSMENT HGB,?TSAT ??01/11/2024:?9.9,?- ??01/02/2024:?10.3,?27.0 ??12/26/2023:?11.1,?- ?? Ferritin ??01/02/2024:?915.0 ??12/05/2023:?1057.0 ??10/31/2023:?1275.0 Mircera,?IVP?(mcg) ??12/16/2023:?150 ??12/02/2023:?150 ??11/18/2023:?100 Iron?Sucrose?(Venofer)?(mg) ??11/04/2023:?50 ??10/28/2023:?50 ??10/21/2023:?50 BMM?ASSESSMENT PTH,?Intact ??01/02/2024:?506.0 ??12/05/2023:?410.0 ??10/31/2023:?449.0 ?? Calcium,?Phosphorus ??01/11/2024:?8.3,?- ??01/02/2024:?8.4,?7.0 ??12/26/2023:?8.5,?- Vitamin?D?(Calcitriol)?Oral?(mcg) ??01/13/2024:?1.00 ??01/11/2024:?1.00 ??01/02/2024:?0.75 NUTRITION?ASSESSMENT Potassium,?Albumin ??01/02/2024:?5.2,?3.9 ??12/05/2023:?5.0,?4.2 ??10/31/2023:?4.9,?4.3 ?? eNPCR ??01/02/2024:?0.72 ??12/05/2023:?0.88 ??10/31/2023:?1.62 DIAGNOSIS Chief?Complaint:?N18.6?End?stage?renal?disease Patient?data?updated?01/16/2024?at?9:55?AM Signed?By:?Lesa,?Simi,?GROUP TESTER??on?01/16/2024?9:55:31?AM END OF DOCUMENT
--- OUTSIDE RECORDS SUMMARY | 2024-02-24 16:54 | XMS_ITS ---
Author Name Too Morgan Address [address] [place] [id number] Phone [phone] Organization [facility] e, NA DOCUMENT DISCLAIMER Multiple document versions may exist, please be sure you review the latest version. The information in the [facility] Progress Note Document represents a providers documented clinical note containing certain health and medical information. It may not contain the complete medical history for the patient and should be independently verified. The represented time in the document is Eastern Time PROVIDER ROUNDING NOTE COMPREHENSIVE Patient:?SINDI?FERNANDA,?1960,?63y,?M Dialysis?Location:?[facility] Attending?Gis Geographer:?Too?Eddie Service?Date:?02/15/2024 Service?Provider:?Too?Eddie,? I?met?face?to?face?with?the?patient?today. 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 BP?Stand?Pre ??02/10/2024:?150/78 ??02/08/2024:?149/67 BP?Sit?Pre ??02/13/2024:?147/66 ??02/10/2024:?147/75 ??02/08/2024:?160/70 BP?Stand?Post ??02/10/2024:?129/74 ??02/08/2024:?137/60 BP?Sit?Post ??02/13/2024:?122/68 ??02/10/2024:?136/71 ??02/08/2024:?128/68 Tx?Duration ??02/13/2024:?4:12 ??02/10/2024:?4:03 ??02/08/2024:?4:09 Missed?Treatments 0?-?last?30?days 0?-?last?60?days FLUID?ASSESSMENT Fluid?status?acceptable.?Interdialytic?weight?gain?acceptable.?Op timal?weight?discussed.? EDW?(kg) ??02/13/2024:?100.5 ??02/10/2024:?100.5 ??02/08/2024:?100.5 Weight?Pre?(kg) ??02/13/2024:?105.7 ??02/10/2024:?104.3 ??02/08/2024:?105.4 Weight?Post?(kg) ??02/13/2024:?102.5 ??02/10/2024:?101.4 ??02/08/2024:?102.1 PWV?(kg) ??02/13/2024:?2.0 ??02/10/2024:?0.9 ??02/08/2024:?1.6 UF?Rate?(mL/kg/hr) ??02/13/2024:?7.4 ??02/10/2024:?7.1 ??02/08/2024:?7.8 ADEQUACY?ASSESSMENT Adequacy?target?met.?Prescription?compliance?acceptable.?No?changes?indicated.? spKt/V,?URR ??02/06/2024:?1.58,?74.0 ??01/02/2024:?1.05,?58.0 ??12/05/2023:?1.8,?78.0 ACCESS?ASSESSMENT ??Access?Type:?AVFistula ??Access?SubType:?Standard ??Access?Status:?Active?(In?Use)?-?09/14/2017 ??Access?Location:?Left?Forearm ??Created:?04/13/2017 Flow ??12/07/2023:?1367 ??11/16/2023:?886 ??10/05/2023:?1427 Vascular?access?reviewed.?Current?access?is?permanent?and?functioning?well. ANEMIA?ASSESSMENT HGB?at?goal.?Iron?parameters?acceptable.?No?changes?indicated.? HGB,?TSAT ??02/06/2024:?10.7,?40.0 ??01/30/2024:?10.0,?- ??01/23/2024:?9.6,?- ?? Ferritin ??02/06/2024:?841.0 ??01/02/2024:?915.0 ??12/05/2023:?1057.0 Mircera,?IVP?(mcg) ??02/03/2024:?150 ??01/20/2024:?150 ??12/16/2023:?150 BMM?ASSESSMENT PTH?controlled.?Calcium?controlled.?Phosphorus?controlled.?No?naomi nges?indicated.? PTH,?Intact ??02/06/2024:?387.0 ??01/02/2024:?506.0 ??12/05/2023:?410.0 ?? Calcium,?Phosphorus ??02/06/2024:?8.5,?5.3 ??01/30/2024:?8.8,?- ??01/23/2024:?8.2,?- Vitamin?D?(Calcitriol)?Oral?(mcg) ??02/13/2024:?1.00 ??02/10/2024:?1.00 ??02/08/2024:?1.00 NUTRITION?ASSESSMENT Potassium?controlled.?Albumin?controlled.?No?changes?indicated.? Potassium,?Albumin ??02/06/2024:?4.8,?4.0 ??01/16/2024:?3.8,?- ??01/02/2024:?5.2,?3.9 ?? eNPCR ??02/06/2024:?0.82 ??01/02/2024:?0.72 ??12/05/2023:?0.88 PHYSICAL?EXAM Exam?Performed.?Lungs?-?Clear. DIAGNOSIS Chief?Complaint:?N18.6?End?stage?renal?disease Patient?data?updated?02/15/2024?at?9:49?AM Signed?By:?Eddie,?Too,???on?02/15/2024?9:52:56?AM END OF DOCUMENT
--- OUTSIDE RECORDS SUMMARY | 2024-02-24 16:54 | XMS_ITS ---
Author Name Susan, Nettie Address [address] [place] [address] Phone [phone] Organization [facility] e, NA DOCUMENT DISCLAIMER Multiple document versions may exist, please be sure you review the latest version. The information in the [facility] Progress Note Document represents a providers documented clinical note containing certain health and medical information. It may not contain the complete medical history for the patient and should be independently verified. The represented time in the document is Eastern Time PROVIDER ROUNDING NOTE BASIC Patient:?SINDI?FERNANDA,?1960,?63y,?M Dialysis?Location:?[facility] Attending?[employer] Executive:?Too?Eddie Service?Date:?02/01/2024 Service?Provider:?Nettie?Susan,?RUGBY UNION FOOTBALLER I?met?face?to?face?with?the?patient?today. OVERVIEW The?patient?presented?with?ESRD?on?dialysis Primary?cause?of?renal?failure:?Type?2?diabetes?mellitus&#16 0;with?diabetic?chronic?kidney?disease Comments:?02/01/24-?pt?seen?and?examined?on?dialysis.?Tolera ting?treatment?well.?No?issues?or?patient?complaints.?Stitch es?removed?from?foot?yesterday,?healing?well.? 01/17?Patient?recently?hospitalized?for?right?toe?amputation LAST?HOSPITALIZATION Discharge?Diagnosis:?H05.029?Osteomyelitis?of?unspecified?orbit Admission?Date?01/04/24 Discharge?Date?01/10/24 DIALYSIS?PRESCRIPTION ??IHD?3x?Week?Start?date:?01/04/24 ??Dialyzer:?180NRe?Optiflux ??BFR:?450 ??DFR:?Manual?800 ??Potassium:?2.0 ??Sodium:?137 ??EDW:?100.5 ??Duration:?4:00 ??Calcium:?2.5 ??Bicarb:?35 ??Rx?updated?on:?01/04/2024 TREATMENT?ASSESSMENT BP?Stand?Pre ??01/30/2024:?149/71 ??01/27/2024:?177/82 ??01/25/2024:?144/66 BP?Sit?Pre ??01/30/2024:?131/51 ??01/27/2024:?169/71 ??01/25/2024:?138/77 BP?Stand?Post ??01/30/2024:?140/68 ??01/27/2024:?149/60 BP?Sit?Post ??01/30/2024:?155/70 ??01/27/2024:?130/57 ??01/25/2024:?121/59 Tx?Duration ??01/30/2024:?4:12 ??01/27/2024:?4:02 ??01/25/2024:?4:24 Missed?Treatments 0?-?last?30?days 0?-?last?60?days FLUID?ASSESSMENT EDW?(kg) ??01/30/2024:?100.5 ??01/27/2024:?100.5 ??01/25/2024:?100.5 Weight?Pre?(kg) ??01/30/2024:?105.2 ??01/27/2024:?102.8 ??01/25/2024:?103.5 Weight?Post?(kg) ??01/30/2024:?101.4 ??01/27/2024:?101.3 ??01/25/2024:?101.5 PWV?(kg) ??01/30/2024:?0.9 ??01/27/2024:?0.8 ??01/25/2024:?1.0 UF?Rate?(mL/kg/hr) ??01/30/2024:?8.9 ??01/27/2024:?3.7 ??01/25/2024:?4.5 ADEQUACY?ASSESSMENT Comments:?01/17?needs?repeat?KT/v spKt/V,?URR ??01/02/2024:?1.05,?58.0 ??12/05/2023:?1.8,?78.0 ??10/31/2023:?7.46,?97.0 ACCESS?ASSESSMENT ??Access?Type:?AVFistula ??Access?SubType:?Standard ??Access?Status:?Active?(In?Use)?-?09/14/2017 ??Access?Location:?Left?Forearm ??Created:?04/13/2017 Flow ??12/07/2023:?1367 ??11/16/2023:?886 ??10/05/2023:?1427 ANEMIA?ASSESSMENT HGB ??01/23/2024:?9.6 ??01/16/2024:?9.4 ??01/11/2024:?9.9 ?? Ferritin ??01/02/2024:?915.0 ??12/05/2023:?1057.0 ??10/31/2023:?1275.0 Mircera,?IVP?(mcg) ??01/20/2024:?150 ??12/16/2023:?150 ??12/02/2023:?150 Iron?Sucrose?(Venofer)?(mg) ??11/04/2023:?50 BMM?ASSESSMENT PTH,?Intact ??01/02/2024:?506.0 ??12/05/2023:?410.0 ??10/31/2023:?449.0 ?? Calcium,?Phosphorus ??01/23/2024:?8.2,?- ??01/18/2024:?-,?7.2 ??01/16/2024:?8.3,?- Vitamin?D?(Calcitriol)?Oral?(mcg) ??01/30/2024:?1.00 ??01/27/2024:?1.00 ??01/25/2024:?1.00 NUTRITION?ASSESSMENT Potassium,?Albumin ??01/16/2024:?3.8,?- ??01/02/2024:?5.2,?3.9 ??12/05/2023:?5.0,?4.2 ?? eNPCR ??01/02/2024:?0.72 ??12/05/2023:?0.88 ??10/31/2023:?1.62 DIAGNOSIS Chief?Complaint:?N18.6?End?stage?renal?disease Patient?data?updated?02/01/2024?at?10:00?AM Signed?By:?Susan,?Nettie,?RUGBY UNION FOOTBALLER??on?02/01/2024?10:00:54 AM END OF DOCUMENT
--- OUTSIDE RECORDS SUMMARY | 2024-02-24 16:54 | XMS_ITS ---
Author Name Stephanie Davisberly Address [address] [place] [address] Phone [phone] Organization [facility] e, NA DOCUMENT DISCLAIMER Multiple document versions may exist, please be sure you review the latest version. The information in the [facility] Progress Note Document represents a providers documented clinical note containing certain health and medical information. It may not contain the complete medical history for the patient and should be independently verified. The represented time in the document is Eastern Time PROVIDER ROUNDING NOTE BASIC Patient:?SINDI?FERNANDA,?1960,?63y,?M Dialysis?Location:?[email or web address] Attending?Oceanographer Physical:?Too?Eddie Service?Date:?01/13/2024 Service?Provider:?Nettie?Susan,?ROPE SILICA MACHINE OPERATOR I?met?face?to?face?with?the?patient?today. OVERVIEW The?patient?presented?with?ESRD?on?dialysis Primary?cause?of?renal?failure:?Type?2?diabetes?mellitus&#16 0;with?diabetic?chronic?kidney?disease Comments:?01/13/24-?Tolerating?treatment?well.?No?patient?complain ts.?UF?goal?not?correctly?entered?into?machine?at?start ?of?tx-?will?not?meet?EDW?today.?Pt?is?getting&#16 0;IV?abx?s/p?hospitalization?with?OM?and?toe?amputation. 12/24/23-?seen?and?examined?on?HD.?Tolerated?treatment?well.& #160;No?patient?issues?or?complaints.? 12/14/23-?pt?tolerating?tx?well,?no?issues?or?complaints.&#16 0;EDW,?BP?anemia,?adequacy?and?access?flows?are?appropriate.? ?11/21/23-?Tolerated?tx?well.?Gained?extra?fluid?weight? over?the?weekend,?pt?will?watch?fluid?intake?and?will&# 160;try?to?pull?extra?fluid?as?tolerated?over?the?next& #160;couple?of?treatments.?Denies?SOB?today.?No?issues?or pt?complaints.? 11/13?lightheaded?at?home/?post?bp?120/40,?given?wide?pu lse?pressure,?will?increase?EDW?1?kg LAST?HOSPITALIZATION Discharge?Diagnosis:?H05.029?Osteomyelitis?of?unspecified?orbit Admission?Date?01/04/24 Discharge?Date?01/10/24 DIALYSIS?PRESCRIPTION ??IHD?3x?Week?Start?date:?01/04/24 ??Dialyzer:?180NRe?Optiflux ??BFR:?450 ??DFR:?Manual?800 ??Potassium:?2.0 ??Sodium:?137 ??EDW:?100.5 ??Duration:?4:00 ??Calcium:?2.5 ??Bicarb:?35 ??Rx?updated?on:?01/04/2024 TREATMENT?ASSESSMENT BP?Stand?Pre ??01/11/2024:?153/59 ??01/02/2024:?157/77 ??12/30/2023:?148/59 BP?Sit?Pre ??01/11/2024:?150/74 ??01/02/2024:?163/80 ??12/30/2023:?161/73 BP?Stand?Post ??01/11/2024:?123/54 ??01/02/2024:?156/66 ??12/30/2023:?128/66 BP?Sit?Post ??01/11/2024:?129/76 ??01/02/2024:?188/60 ??12/30/2023:?119/54 Tx?Duration ??01/11/2024:?4:01 ??01/02/2024:?3:28 ??12/30/2023:?4:04 Missed?Treatments 0?-?last?30?days 0?-?last?60?days FLUID?ASSESSMENT EDW?(kg) ??01/11/2024:?100.5 ??01/02/2024:?100.0 ??12/30/2023:?100.0 Weight?Pre?(kg) ??01/11/2024:?102.6 ??01/02/2024:?105.2 ??12/30/2023:?103.6 Weight?Post?(kg) ??01/11/2024:?101.1 ??01/02/2024:?101.1 ??12/30/2023:?100.0 PWV?(kg) ??01/11/2024:?0.6 ??01/02/2024:?1.1 ??12/30/2023:?0.0 UF?Rate?(mL/kg/hr) ??01/11/2024:?3.7 ??01/02/2024:?11.7 ??12/30/2023:?8.9 ADEQUACY?ASSESSMENT spKt/V,?URR ??01/02/2024:?1.05,?58.0 ??12/05/2023:?1.8,?78.0 ??10/31/2023:?7.46,?97.0 ACCESS?ASSESSMENT ??Access?Type:?AVFistula ??Access?SubType:?Standard ??Access?Status:?Active?(In?Use)?-?09/14/2017 ??Access?Location:?Left?Forearm ??Created:?04/13/2017 Flow ??12/07/2023:?1367 ??11/16/2023:?886 ??10/05/2023:?1427 ANEMIA?ASSESSMENT HGB,?TSAT ??01/02/2024:?10.3,?27.0 ??12/26/2023:?11.1,?- ??12/19/2023:?10.7,?- ?? Ferritin ??01/02/2024:?915.0 ??12/05/2023:?1057.0 ??10/31/2023:?1275.0 Mircera,?IVP?(mcg) ??12/16/2023:?150 ??12/02/2023:?150 ??11/18/2023:?100 Iron?Sucrose?(Venofer)?(mg) ??11/04/2023:?50 ??10/28/2023:?50 ??10/21/2023:?50 BMM?ASSESSMENT PTH,?Intact ??01/02/2024:?506.0 ??12/05/2023:?410.0 ??10/31/2023:?449.0 ?? Calcium,?Phosphorus ??01/02/2024:?8.4,?7.0 ??12/26/2023:?8.5,?- ??12/19/2023:?8.2,?- Vitamin?D?(Calcitriol)?Oral?(mcg) ??01/11/2024:?1.00 ??01/02/2024:?0.75 ??12/30/2023:?0.75 NUTRITION?ASSESSMENT Potassium,?Albumin ??01/02/2024:?5.2,?3.9 ??12/05/2023:?5.0,?4.2 ??10/31/2023:?4.9,?4.3 ?? eNPCR ??01/02/2024:?0.72 ??12/05/2023:?0.88 ??10/31/2023:?1.62 DIAGNOSIS Chief?Complaint:?N18.6?End?stage?renal?disease Patient?data?updated?01/13/2024?at?9:24?AM Signed?By:?Susan,?Nettie,?ROPE SILICA MACHINE OPERATOR??on?01/13/2024?9:25:48 AM END OF DOCUMENT
--- OUTSIDE RECORDS SUMMARY | 2024-02-24 16:55 | XMS_ITS ---
Author Name Too Morgan Address [address] [place] [address] Phone [phone] Organization [facility] e, NA DOCUMENT DISCLAIMER Multiple document versions may exist, please be sure you review the latest version. The information in the [facility] Progress Note Document represents a providers documented clinical note containing certain health and medical information. It may not contain the complete medical history for the patient and should be independently verified. The represented time in the document is Eastern Time PROVIDER ROUNDING NOTE COMPREHENSIVE Patient:?SINDI?FERNANDA,?1960,?63y,?M Dialysis?Location:?[facility] Attending?Finisher Card Tender:?Too?Eddie Service?Date:?12/14/2023 Service?Provider:?Too?Eddie,? I?met?face?to?face?with?the?patient?today. OVERVIEW The?patient?presented?with?ESRD?on?dialysis Primary?cause?of?renal?failure:?Type?2?diabetes?mellitus&#16 0;with?diabetic?chronic?kidney?disease Comments:?12/14/23-?pt?tolerating?tx?well,?no?issues?or? complaints.?EDW,?BP?anemia,?adequacy?and?access?flows?are appropriate.? ?11/21/23-?Tolerated?tx?well.?Gained?extra?fluid?weight? over?the?weekend,?pt?will?watch?fluid?intake?and?will&# 160;try?to?pull?extra?fluid?as?tolerated?over?the?next& #160;couple?of?treatments.?Denies?SOB?today.?No?issues?or pt?complaints.? 11/13?lightheaded?at?home/?post?bp?120/40,?given?wide?pu lse?pressure,?will?increase?EDW?1?kg LAST?HOSPITALIZATION Discharge?Diagnosis:?R78.81?Bacteremia Admission?Date?08/15/22 Discharge?Date?08/18/22 DIALYSIS?PRESCRIPTION ??IHD?3x?Week?Start?date:?11/14/23 ??Dialyzer:?180NRe?Optiflux ??BFR:?450 ??DFR:?Manual?800 ??Potassium:?2.0 ??Sodium:?137 ??EDW:?100 ??Duration:?4:00 ??Calcium:?2.5 ??Bicarb:?35 ??Rx?updated?on:?11/14/2023 TREATMENT?ASSESSMENT BP?Stand?Pre ??12/12/2023:?148/70 ??12/09/2023:?134/61 ??12/07/2023:?125/56 BP?Sit?Pre ??12/12/2023:?163/86 ??12/09/2023:?166/48 ??12/07/2023:?137/67 BP?Stand?Post ??12/12/2023:?129/60 ??12/09/2023:?146/69 ??12/07/2023:?112/51 BP?Sit?Post ??12/12/2023:?130/69 ??12/09/2023:?110/56 ??12/07/2023:?135/68 Tx?Duration ??12/12/2023:?4:03 ??12/09/2023:?4:01 ??12/07/2023:?4:06 Missed?Treatments 0?-?last?30?days 0?-?last?60?days FLUID?ASSESSMENT EDW?(kg) ??12/12/2023:?100.0 ??12/09/2023:?100.0 ??12/07/2023:?100.0 Weight?Pre?(kg) ??12/12/2023:?104.8 ??12/09/2023:?102.6 ??12/07/2023:?103.1 Weight?Post?(kg) ??12/12/2023:?101.0 ??12/09/2023:?100.2 ??12/07/2023:?100.3 PWV?(kg) ??12/12/2023:?1.0 ??12/09/2023:?0.2 ??12/07/2023:?0.3 UF?Rate?(mL/kg/hr) ??12/12/2023:?9.3 ??12/09/2023:?6 ??12/07/2023:?6.8 ADEQUACY?ASSESSMENT spKt/V,?URR ??12/05/2023:?1.8,?78.0 ??10/31/2023:?7.46,?97.0 ??10/03/2023:?1.88,?79.0 ACCESS?ASSESSMENT ??Access?Type:?AVFistula ??Access?SubType:?Standard ??Access?Status:?Active?(In?Use)?-?09/14/2017 ??Access?Location:?Left?Forearm ??Created:?04/13/2017 Flow ??12/07/2023:?1367 ??11/16/2023:?886 ??10/05/2023:?1427 ANEMIA?ASSESSMENT HGB,?TSAT ??12/05/2023:?9.9,?43.0 ??11/28/2023:?9.6,?- ??11/21/2023:?9.7,?- ?? Ferritin ??12/05/2023:?1057.0 ??10/31/2023:?1275.0 ??10/10/2023:?1162.0 Mircera,?IVP?(mcg) ??12/02/2023:?150 ??11/18/2023:?100 ??11/04/2023:?75 Iron?Sucrose?(Venofer)?(mg) ??11/04/2023:?50 ??10/28/2023:?50 ??10/21/2023:?50 BMM?ASSESSMENT PTH,?Intact ??12/05/2023:?410.0 ??10/31/2023:?449.0 ??10/03/2023:?459.0 ?? Calcium,?Phosphorus ??12/05/2023:?8.9,?5.1 ??11/28/2023:?8.4,?- ??11/21/2023:?8.3,?- Vitamin?D?(Calcitriol)?Oral?(mcg) ??12/12/2023:?0.75 ??12/09/2023:?0.75 ??12/07/2023:?0.75 NUTRITION?ASSESSMENT Potassium,?Albumin ??12/05/2023:?5.0,?4.2 ??10/31/2023:?4.9,?4.3 ??10/10/2023:?5.8,?- ?? eNPCR ??12/05/2023:?0.88 ??10/31/2023:?1.62 ??10/03/2023:?1.06 DIAGNOSIS Chief?Complaint:?N18.6?End?stage?renal?disease Patient?data?updated?12/14/2023?at?9:48?AM Signed?By:?Eddie,?Too,???on?12/14/2023?9:49:10?AM END OF DOCUMENT
--- OUTSIDE RECORDS SUMMARY | 2024-02-24 16:55 | XMS_ITS ---
Author Name Evonne, Clinic Address [address] [place] [id number] Phone [phone] Organization [facility] e, NA DOCUMENT DISCLAIMER Multiple document versions may exist, please be sure you review the latest version. The information in the [facility] Continuity of Care Document represents a summary of certain health and medical information. It may not contain the complete medical history for the patient and should be independently verified. The represented time in the document is Eastern Time. 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 Active January 04, 2024 Hyperkalemia E87.5 Active September 21, 2023 Diarrhea, [...] 2018 End stage renal disease N18.6 Active Nove mbbhumi 2017 Type 2 diabetes mellitus wit h diabetic chronic kidney disease E11.22 Active March 29, 2018 ALLERGIES AND ADVERSE REACTIONS No Known Allergies SOCIAL HISTORY Tobacco Use Status Tobacco Type Unknown if ever consumed tobacco - Caregiver Characteristics No Information Available Characteristics of Home environment No Information Available MEDICATIONS Prescribed Medications for Dialysis Treatments Medication Instructions Dosage Route Start Date End Date Stat Heparin Sodium (Porcine) 1,000 Units/mL Systemic Bolus, Every Treatment, Total treatment minutes 240 8000 units Intravenous - push September 23, 2023 September 21, 2024 Active Vitamin D (Calcitriol) Oral Every Treatment 1.00 mcg Oral January 09, 2024 January 07, 2025 Active Cefepime 3X Week 2000 mg Intravenous January 11, 2024 February 06, 2024 Discontinued Cefepime 3X Week 2000 mg Intravenous February 08, 2024 February 15, 2024 Discontinued Mircera During Dialysis, Every 2 weeks 150 mcg Intravenous - push January 20, 2024 January 18, 2025 Discontinued Home Medications Medication Instructions Dosage Route Start Date End Date Stat us amlodipine 10 mg Take by mouth once a day 1 tablet ORAL February 25, 2023 Active aspirin 325 mg Take by mouth once a day 1 tablet ORAL August 07, 2019 Active B complex-vitam in C-folic acid 1 mg Take by mouth once a day 1 tablet ORAL January 18, 2024 Active Basaglar KwikPen U-100 Insulin 100 unit/mL (3 mL) SUBCUTANEOUS January 18, 2024 Active bumetanide 1 mg Take by mouth twice a day 2 mg ORAL January 18, 2024 Active gabapentin 300 mg Take by mouth three times a day 1 capsule ORAL January 18, 2024 Active losartan 50 mg Take by mouth once a day 1 tablet ORAL January 18, 2024 Active melatonin 3 mg Take by mouth every night 2 tablet ORAL August 04, 2019 Active Novolog FlexPen U-100 Insulin 100 unit/mL (3 mL) Inject SUBCUTANEOUS January 18, 2024 Active sertraline 25 mg Take by mouth once a day 2 tablet ORAL January 18, 2024 Active Trulicity 0.75 mg/0.5 mL SUBCUTANEOUS June 02, 2021 Active Velphoro 500 mg Take by mouth three times a day with meals 1 tablet ORAL January 23, 2024 Active cefepime 1 gram Inject intravenously three times a week 2 gram INJECTION January 09, 2024 February 15, 2024 Discontinued Renvela 800 mg Take by mouth three times a day with meals 3 tablet ORAL January 16, 2024 February 15, 2024 Discontinued VITAL SIGNS Post-Treatment Vital Signs Vital Sign Value Date / Time Blood Pressure-sitting 139/63 mmHg January 312023 07:00 AM Blood Pressure-standing 147/60 mmHg February 24, 2024 07:00 AM Heart Rate 89 beats per minute February 24, 2024 07:00 AM Respiratory Rate 18 breaths per minute January 312023 07:00 AM Temperature 97.1 deg. F February 24, 2024 07:00 AM Weight Vital Sign Value Date / Time Estimated Dry Weight 100.5 kg December 11:59 PM Pre-Dialysis 102.80 kg February 24, 2024 07:00 AM Post-Dialysis 100.70 kg February 24, 2024 07:00 AM Other Other Value Date / Time Height 163 cm July 01, 2022 1 2:00 AM Body Mass Index 37.83 kg/m2 February 15, 2024 09:56 AM HEALTH CONCERNS Tuberculosis Testing TST Date Administered TST Date Read TST Result 04/04/2018 04/06/2018 Negative (<5) mm LAB RESULTS Hematology Result Type Result Value Relevant Referen ce Range Interpretation Date Neutrophils 68.5 % 40.0 - 75.0 % [...] - 400 1000/mcL Low October 03, 2023 Transferrin Sat. (Calc) 48 % 20 - 55 % - October 10, 2023 TIBC (Calc) 219 mcg/dL 185 - 515 mcg/dL - September UIBC/TIBC 114 mcg/dL 155 - 355 mcg/dL Low October 10, 2023 Ferritin 1162 ng/mL 22 - 322 ng/mL High October 09, 024 Platelets 124 1000/mcL 130 - 400 1000/mcL Low October 31, 2023 Neutrophils 67.4 % 40.0 - 75.0 % - October 30, 024 WBC (No Diff) 6.79 1000/mcL 4.80 - 10.80 1000/mcL - October 31, 2023 UIBC/TIBC 157 mcg/dL 155 - 355 mcg/dL - October 31, 2023 TIBC (Calc) 249 mcg/dL 185 - 515 mcg/dL - October Transferrin Sat. (Calc) 37 % 20 - 55 % - October 31, 2023 Ferritin 1275 ng/mL 22 - 322 ng/mL High October 30 Hemoglobin x 3 28.8 % 42.0 - [...] - 14.5 % High December 05, 2023 MCH 31.0 pg 27.0 - 31.0 pg - December 05, 2023 MCHC 31.4 g/dL 30.0 - 36.0 g/dL - November WBC (No Diff) 5.93 1000/mcL 4.80 - 10.80 1000/mcL - December 05, 2023 ELROY 2.4 % 0.0 - 4.0 % - December 04 Eosinophil 9.4 % 0.0 - 7.0 % High December 04 Basophils 1.2 % 0.0 - 1.5 % - December 04 Lymphocytes 15.8 % 19.0 - 48.0 % Low December 05, 2023 Monocytes 6.7 % 3.0 - 10.0 % - December 04 Neutrophils 64.4 % 40.0 - 75.0 % - December 05, 2023 Hemoglobin x 3 30.6 % 42.0 - 54.0 % Low December 12, 2023 Hemoglobin x 3 32.1 % 42.0 - 54.0 % Low December 19, 2023 Hemoglobin x 3 33.3 % 42.0 - 54.0 % Low December 26, 2023 WBC (No Diff) 5.32 1000/mcL 4.80 - 10.80 1000/mcL - January 02, 2024 Platelets 174 1000/mcL 130 - 400 1000/mcL - Dec Hemoglobin x 3 30.9 % 42.0 - 54.0 % Low 2023 MCHC 31.2 g/dL 30.0 - 36.0 g/dL - 2023 RDW 18.8 % 11.5 - 14.5 % High December MCH 31.8 pg 27.0 - 31.0 pg High January 02, 2024 Basophils 1.0 % 0.0 - 1.5 % - January 02, 2024 ELROY 3.7 % 0.0 - 4.0 % - January 02, 2024 Monocytes 5.5 % 3.0 - 10.0 % - December Eosinophil 12.0 % 0.0 - 7.0 % High January 02, 2024 Neutrophils 64.0 % 40.0 - 75.0 % - January 02, 2024 Lymphocytes 13.8 % 19.0 - 48.0 % Low January 02, 2024 Iron 52 mcg/dL 45 - 160 mcg/dL - January 02, 2024 TIBC (Calc) 193 mcg/dL 185 - 515 mcg/dL - 2023 UIBC/TIBC 141 mcg/dL 155 - 355 mcg/dL Low Septembe r 2023 Transferrin Sat. (Calc) 27 % 20 - 55 % - January 01 Ferritin 915 ng/mL 22 - 322 ng/mL High January 02, 2024 Hemoglobin x 3 29.7 % 42.0 - 54.0 % Low Septemb er 2023 Hemoglobin x 3 28.2 % 42.0 - 54.0 % Low Septemb er 2023 Platelets 146 1000/mcL 130 - 400 1000/mcL - Dec MCHC 30.8 g/dL 30.0 - 36.0 g/dL - Decembe r 2023 MCH 31.1 pg 27.0 - 31.0 pg High January 16, 2024 RDW 17.4 % 11.5 - 14.5 % High December 312023 Eosinophil 8.3 % 0.0 - 7.0 % High January 16, 2024 WBC (No Diff) 5.01 1000/mcL 4.80 - 10.80 1000/mcL - January 16, 2024 ELROY 2.3 % 0.0 - 4.0 % - January 16, 2024 Basophils 1.1 % 0.0 - 1.5 % - January 16, 2024 Neutrophils 64.6 % 40.0 - 75.0 % - January 16, 2024 Monocytes 6.0 % 3.0 - 10.0 % - December Lymphocytes 17.6 % 19.0 - 48.0 % Low January 16, 2024 Neutrophils 64.6 % 40.0 - 75.0 % - January 23, 2024 Hemoglobin x 3 28.8 % 42.0 - 54.0 % Low Septemb er 2023 Platelets 118 1000/mcL 130 - 400 1000/mcL Low Dec RDW 17.4 % 11.5 - 14.5 % High January 012023 ELROY 2.9 % 0.0 - 4.0 % - January 23, 2024 WBC (No Diff) 5.52 1000/mcL 4.80 - 10.80 1000/mcL - January 23, 2024 Eosinophil 10.3 % 0.0 - 7.0 % High January 23, 2024 Basophils 1.3 % 0.0 - 1.5 % - January 23, 2024 Lymphocytes 15.7 % 19.0 - 48.0 % Low January 23, 2024 Monocytes 5.2 % 3.0 - 10.0 % - December MCH 31.4 pg 27.0 - 31.0 pg High January 23, 2024 MCHC 31.3 g/dL 30.0 - 36.0 g/dL - Septembe r 2023 RBC 2.96 mill/mcL 4.70 - 6.10 mill/mcL Low January 30, 2024 HCT 29.9 % 42.0 - 52.0 % Low January 022023 ELROY 3.0 % 0.0 - 4.0 % - January 30, 2024 WBC (No Diff) 5.03 1000/mcL 4.80 - 10.80 1000/mcL - January 30, 2024 MCH 33.9 pg 27.0 - 31.0 pg High January 30, 2024 Eosinophil 10.9 % 0.0 - 7.0 % High January 30, 2024 Basophils 1.3 % 0.0 - 1.5 % - January 30, 2024 Lymphocytes 17.4 % 19.0 - 48.0 % Low January 30, 2024 Monocytes 4.5 % 3.0 - 10.0 % - December Neutrophils 62.8 % 40.0 - 75.0 % - January 30, 2024 MCHC 33.6 g/dL 30.0 - 36.0 g/dL - Decembe r 2023 Hemoglobin x 3 30 % 42.0 - 54.0 % Low er 2023 Platelets 96 1000/mcL 130 - 400 1000/mcL Low mber 2023 RDW 19.0 % 11.5 - 14.5 % High January 022023 HGB 10.0 g/dL 14.0 - 18.0 g/dL Low Decembe r 2023 Lymphocytes 16.7 % 19.0 - 48.0 % Low January Eosinophil 11.8 % 0.0 - 7.0 % High February 05 Monocytes 5.5 % 3.0 - 10.0 % - February 06, 2024 ELROY 3.9 % 0.0 - 4.0 % - February 05 024 Basophils 0.6 % 0.0 - 1.5 % - February 05 024 RBC 3.34 mill/mcL 4.70 - 6.10 mill/mcL Low February 06, 2024 WBC (No Diff) 6.03 1000/mcL 4.80 - 10.80 1000/mcL - February 06, 2024 HCT 34.4 % 42.0 - 52.0 % Low February 06, 2024 MCH 32.1 pg 27.0 - 31.0 pg High January RDW 18.6 % 11.5 - 14.5 % High February 06, 2024 MCHC 31.1 g/dL 30.0 - 36.0 g/dL - February 06, 2024 Hemoglobin x 3 32.1 % 42.0 - 54.0 % Low February 06, 2024 HGB 10.7 g/dL 14.0 - 18.0 g/dL Low February 06, 2024 Platelets 125 1000/mcL 130 - 400 1000/mcL Low 2023 Ferritin 841 ng/mL 22 - 322 ng/mL High January Iron 86 mcg/dL 45 - 160 mcg/dL - January TIBC (Calc) 215 mcg/dL 185 - 515 mcg/dL - February 06, 2024 UIBC/TIBC 129 mcg/dL 155 - 355 mcg/dL Low February 06, 2024 Transferrin Sat. (Calc) 40 % 20 - 55 % - February 06, 2024 Neutrophils 61.5 % 40.0 - 75.0 % - January HGB 11.3 g/dL 14.0 - 18.0 g/dL Low February 13, 2024 Hemoglobin x 3 33.9 % 42.0 - 54.0 % Low February 13, 2024 HGB 11.5 g/dL 14.0 - 18.0 g/dL Low February 20, 2024 Hemoglobin x 3 34.5 % 42.0 - 54.0 % Low February 20, 2024 Metabolic/Renal Result Type Result Value Relevant Referen ce Range Interpretation Date URR, Calc 78 % 65 - 80 % - December 04 BUN, Post 13 mg/dL 6 - 19 mg/dL - December 04 024 Sodium 137 mEq/L 136 - 145 mEq/L - November BUN 59 mg/dL 6 - 19 mg/dL High December 04 024 Bicarbonate 24 mEq/L 22 - 29 mEq/L - December 05, 2023 Potassium 5.0 mEq/L 3.5 - 5.1 mEq/L - November Hemoglobin A1c 8.0 % 4.8 - 5.9 % High November BUN, Post 25 mg/dL 6 - 19 mg/dL High December Hemoglobin A1c 7.0 % 4.8 - 5.9 % High January 02, 2024 BUN 60 mg/dL 6 - 19 mg/dL High December Potassium 5.2 mEq/L 3.5 - 5.1 mEq/L High January 02, 2024 Sodium 140 mEq/L 136 - 145 mEq/L - January 02, 2024 Bicarbonate 23 mEq/L 22 - 29 mEq/L - January 02, 2024 Chloride 100 mEq/L 96 - 108 mEq/L - January 02, 2024 URR, Calc 58 % 65 - 80 % Low January 02, 2024 Potassium 3.8 mEq/L 3.5 - 5.1 mEq/L - January 16, 2024 Sodium 137 mEq/L 136 - 145 mEq/L - January 16, 2024 Bicarbonate 22 mEq/L 22 - 29 mEq/L - January 16, 2024 Chloride 97 mEq/L 96 - 108 mEq/L - January 16, 2024 Creatinine, Serum 9.24 mg/dL 0.60 - 1.30 mg/dL High January 16, 2024 BUN 51 mg/dL 6 - 19 mg/dL High December BUN/Creat Ratio 5.5 10.0 - 20.0 [facility] BUN 52 mg/dL 6 - 19 mg/dL High December BUN 50 mg/dL 6 - 19 mg/dL High December URR, Calc 74 % 65 - 80 % - February 05 BUN, Post 15 mg/dL 6 - 19 mg/dL - February 06, 2024 BUN 57 mg/dL 6 - 19 mg/dL High February 06, 2024 Potassium 4.8 mEq/L 3.5 - 5.1 mEq/L - January Sodium 137 mEq/L 136 - 145 mEq/L - January Bicarbonate 24 mEq/L 22 - 29 mEq/L - January HD Adequacy Result Type Result Value Relevant Referen ce Range Interpretation Date Krt/V 0.00 No Reference Ran ge Provided - September 05, 2023 Krt/V 0.00 No Reference Ran ge Provided - October 03, 2023 Krt/V 0.00 No Reference Ran ge Provided - October 31, 2023 wstdKt/V without residual 2.6 No Reference Range Provided - December 05, 2023 Krt/V 0.00 No Reference Ran ge Provided - December 05, 2023 eKt/V ([place]) 1.57 No Reference Range Provided - December 05, 2023 wstdKt/V, residual 0.0 No Reference Range Provided - December 05, 2023 wstdKt/V 2.6 No Reference Ran ge Provided - December 05, 2023 spKt/V Gotch 1.82 No Reference Ran ge Provided - December 05, 2023 spKt/V (Daugirdas II) 1.80 No Reference Range Provided - December 05, 2023 Krt/V 0.00 No Reference Ran ge Provided - January 02, 2024 eKt/V ([place]) 0.90 No Reference Range Provided - January 02, 2024 wstdKt/V, residual 0.0 No Reference Range Provided - January 02, 2024 spKt/V Gotch 1.06 No Reference Ran ge Provided - January 02, 2024 wstdKt/V without residual 2.0 No Reference Range Provided - January 02, 2024 spKt/V (Daugirdas II) 1.05 No Reference Range Provided - January 02, 2024 wstdKt/V 2.0 No Reference Ran ge Provided - January 02, 2024 eKt/V ([place]) 1.38 No Reference Range Provided - February 06, 2024 wstdKt/V without residual 2.5 No Reference Range Provided - February 06, 2024 wstdKt/V 2.5 No Reference Ran ge Provided - February 06, 2024 spKt/V (Daugirdas II) 1.58 No Reference Range Provided - February 06, 2024 spKt/V Gotch 1.60 No Reference Ran ge Provided - February 06, 2024 Krt/V 0.00 No Reference Ran ge Provided - February 06, 2024 wstdKt/V, residual 0.0 No Reference Range Provided - February 06, 2024 Bone/Mineral Result Type Result Value Relevant Referen ce Range Interpretation Date Magnesium 2.8 mg/dL 1.6 - 2.6 mg/dL [...] mg/dL - August 01, 2023 PTH-Intact, Plasma 512 pg/mL 16 - 80 pg/mL High September 05, 2023 Magnesium 2.8 mg/dL 1.6 - 2.6 mg/dL High September 04, Vitamin D 25 Hydroxy 14.8 ng/mL 30.0 - 100.0 ng/mL Low October 03, 2023 PTH-Intact, Plasma 459 pg/mL 16 - 80 pg/mL High Sep Magnesium 2.8 mg/dL 1.6 - 2.6 mg/dL High October 31, 2023 PTH-Intact, Plasma 449 pg/mL 16 - 80 pg/mL High Oct Calcium, Total 8.4 mg/dL 8.4 - 10.2 [...] 8.2 mg/dL 8.4 - 10.2 mg/dL Low Novu st 2023 Calcium, Total 8.5 mg/dL 8.4 - 10.2 mg/dL - Novu 2023 PTH-Intact, Plasma 506 pg/mL 16 - 80 pg/mL High Sep tember 2023 Calcium, Total 8.4 mg/dL 8.4 - 10.2 mg/dL - Dec emb2023 Alkaline Phosphatase 60 U/L 40 - 129 U/L - pt2023 Corrected Ca x P Product 60 0 - 54 High January 01 Ca x P Product 59 0 - 54 High January 02, 2024 Phosphorus 7.0 mg/dL 2.6 - 4.5 mg/dL High January 02, 2024 Magnesium 2.7 mg/dL 1.6 - 2.6 mg/dL High January 02, 2024 Vitamin D 25 Hydroxy 13.8 ng/mL 30.0 - 100.0 ng/mL Low January 02, 2024 Calcium, Total 8.3 mg/dL 8.4 - 10.2 mg/dL Low Dec Calcium, Total 8.3 mg/dL 8.4 - 10.2 mg/dL Low Dec Phosphorus 7.2 mg/dL 2.6 - 4.5 mg/dL High January 18, 2024 Calcium, Total 8.2 mg/dL 8.4 - 10.2 mg/dL Low Dec Calcium, Total 8.8 mg/dL 8.4 - 10.2 mg/dL - Dec PTH-Intact, Plasma 387 pg/mL 16 - 80 pg/mL High Jan anum2023 Corrected Ca x P Product 45 0 - 54 - February 06, 2024 Magnesium 2.6 mg/dL 1.6 - 2.6 mg/dL - January Calcium, Total 8.5 mg/dL 8.4 - 10.2 mg/dL - 2023 Ca x P Product 45 0 - 54 - January Phosphorus 5.3 mg/dL 2.6 - 4.5 mg/dL High January Calcium, Total 8.0 mg/dL 8.4 - 10.2 mg/dL Low 2023 Calcium, Total 8.3 mg/dL 8.4 - 10.2 mg/dL Low Octo yuri 2023 Liver/Nutrition Result Type Result Value Relevant Reference Range Interpre tation Date Albumin (BCG) 4.2 g/dL 3.5 - 5.2 g/dL - December 05, 2023 eNPCR 0.88 No Reference Ran ge Provided - December 05, 2023 eNPCR 0.72 No Reference Ran ge Provided - January 02, 2024 Albumin (BCG) 3.9 g/dL 3.5 - 5.2 g[facility]dL [facility] Glucose 125 mg/dL 70 - 100 mg/dL High January 16, 2024 eNPCR 0.82 No Reference Ran ge Provided - February 06, 2024 Albumin (BCG) 4.0 g/dL 3.5 - 5.2 g/dL - February 06, 2024 Immunochemistry Result Type Result Value Relevant Referen ce Range Interpretation Date HCV s/co ratio 0.43 0.00 - 0.79 - January 30, 2024 Trace Elements Result Type Result Value Relevant Reference Range Interpre tation Aluminum < 5 mcg/L 0 - 10 mcg/L - April 04, 2023 Aluminum < 5 mcg/L 0 - 10 mcg/L - October 02 Inflammation Result Type Result Value Relevant Referen ce Range Interpretation Date CRP - Wide Range 11.9 mg/L 0.0 - 2.4 mg/L High Sept emb2023 CRP - Wide Range 10.0 mg/L 0.0 - 2.4 mg/L High Dec emb2023 CRP - Wide Range 7.1 mg/L 0.0 - 2.4 mg/L High Sept ember 2023 CRP - Wide Range 4.4 mg/L 0.0 - 2.4 mg/L High Octo yuri 2023 Infectious Diseases Result Type Result Value Relevant Referen ce Range Interpretation Date Hep B Surface Ab (anti-HBs) 15 mIU/mL No Reference Range Provided - October 03, 2023 HCV Ab (anti-HCV) Nonreactive No Reference R anncie Provided - January 30, 2024 Hep B Surface Ag (HBsAg) Negative No Reference Range Provided - February 06, 2024 DIALYSIS PRESCRIPTION Conventional Hemodialysis Data Element Value Order Date/Time January 04, 2024 Frequency 3X Week Treatment Days MonWedFri Dialyzer 180NRe Optiflux Treatment Time (Total Minutes) 240 min Blood Flow Rate (mL/min) 450 mL/min Dialysate Flow Rate Manual 800 Estimated Dry Weight 100.5 kg Dialysate Concentrate 2.0 K, 2.5 Ca, 1.0 Mg, 100 Dextrose (G2251) Sodium (mEq/L) 137 mEq/L Bicarb Machine Setting (mEq/L) 35 mEq/L Dialysis Access Hemodialysis-AV Fist davina-Standard, Left Forearm, Radial Artery to Cephalic Vein Access Placed on April 13, 2017 Arterial Needle Size 15g1 Venous Needle Size 15g1 IMMUNIZATIONS Vaccine Date Dose Route Status Flu Vaccine - Flucelvax Trivalent February 20, 2024 0.5 mL Intramuscular Completed Flu Vaccine - Flublok Quadrivalent February 18, 2023 0.5 mL Intramuscular Completed PNEUMOVAX April 15, 2022 0.5 mL Intramuscular Co mpleted Moderna COVID-19 Vaccine, Booster March 12, 2021 0.25 m L Intramuscular Completed HTOOEEC-H-FUPPJ November 16, 2017 40.0 mcg Intramuscular Com pleted OKKHBNB-X-EABVN July 20, 2017 40.0 mcg Intramuscular Co mpleted MWLDLNY-U-KTLCW June 22, 2017 40.0 mcg Intramuscular Completed WYGROYZ-V-CEWPL May 20, 2017 40.0 mcg Intramuscular Completed TRANSPLANT WAITLIST STATUS No Information on Transplant Waitlist Status ADVANCE DIRECTIVES Directive Description Ordered By Effective Date Resuscitation status Full Code Too Sheehansimin September 22, 2023 DIALYSIS TREATMENTS Conventional Hemodialysis Date Pre-Treatment Vitals Post-Treatment Laura ls Duration (hr) BFR (mL/min) Dialysate Dialyzer Dialysis Access Meds Admin Octob 2023 Weight 104.70 kg Weight 101.80 kg 04:04:00 440 2.0 K, 2.5 Ca, 1.0 Mg, 100 Dextrose (G2251) 180nre Optifl ux Blood Pressure-sitting 128/68 mmHg Blood Pressure-sit ting 126/74 mmHg Blood Pressure-standing 147/56 mmHg Blood Pressure-st anding 108/55 mmHg Heart Rate 81 beats per minute Heart Rate 83 beats per minute Respiratory Rate 12 breaths per minute Respiratory Rate 14 breaths per minute Temperature 97.9 deg. F Temperature 97.2 deg. F February 22, 2024 Weight 103.10 kg Weight 101.30 kg 04:00:00 450 2.0 K, 2.5 Ca, 1.0 Mg, 100 Dextrose (G2251) 180nre Optiflux Hemodialysis-AV Fistula-Standard, Left Forearm, Radial Artery to Cephalic Vein Access Placed on April 13, 2017 Heparin Sodium (Porcine) 1,000 Units/mL Systemic; 8000units,Intravenous - push Vitamin D (Calcitriol) Oral; 1.00mcg,Oral Blood Pressure-sitting 119/39 mmHg Blood Pressure-sit ting 114/58 mmHg Blood Pressure-standing 146/41 mmHg Blood Pressure-st anding 118/55 mmHg Heart Rate 88 beats per minute Heart Rate 90 beats per minute Respiratory Rate 13 breaths per minute Respiratory Rate 13 breaths per minute Temperature 98.1 deg. F Temperature 96.6 deg. F February 24, 2024 Weight 102.80 kg Weight 100.70 kg 04:04:00 440 2.0 K, 2.5 Ca, 1.0 Mg, 100 Dextrose (G2251) 180nre Optiflux Hemodialysis-AV Fistula-Standard, Left Forearm, Radial Artery to Cephalic Vein Access Placed on April 13, 2017 Heparin Sodium (Porcine) 1,000 Units/mL Systemic; 8000units,Intravenous - push Vitamin D (Calcitriol) Oral; 1.00mcg,Oral Blood Pressure-sitting 149/55 mmHg Blood Pressure-sit ting 139/63 mmHg Blood Pressure-standing 131/42 mmHg Blood Pressure-st anding 147/60 mmHg Heart Rate 84 beats per minute Heart Rate 89 beats per minute Respiratory Rate 18 breaths per minute Respiratory Rate 18 breaths per minute Temperature 97.2 deg. F Temperature 97.1 deg. F
--- OUTSIDE RECORDS SUMMARY | 2024-02-24 16:55 | XMS_ITS ---
Author Name Simi Mcfadden Address [address] [place] [id number] Phone [phone] Organization [facility] e, NA DOCUMENT DISCLAIMER Multiple document versions may exist, please be sure you review the latest version. The information in the [facility] Progress Note Document represents a providers documented clinical note containing certain health and medical information. It may not contain the complete medical history for the patient and should be independently verified. The represented time in the document is Eastern Time PROVIDER ROUNDING NOTE BASIC Patient:?SINDI?FERNANDA,?1960,?63y,?M Dialysis?Location:?[facility] Attending?School Librarian:?Too?Eddie Service?Date:?01/27/2024 Service?Provider:?Simi?Lesa,?[employer] OPERATOR I?met?face?to?face?with?the?patient?today. 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 LAST?HOSPITALIZATION Discharge?Diagnosis:?H05.029?Osteomyelitis?of?unspecified?orbit Admission?Date?01/04/24 Discharge?Date?01/10/24 DIALYSIS?PRESCRIPTION ??IHD?3x?Week?Start?date:?01/04/24 ??Dialyzer:?180NRe?Optiflux ??BFR:?450 ??DFR:?Manual?800 ??Potassium:?2.0 ??Sodium:?137 ??EDW:?100.5 ??Duration:?4:00 ??Calcium:?2.5 ??Bicarb:?35 ??Rx?updated?on:?01/04/2024 TREATMENT?ASSESSMENT BP?Stand?Pre ??01/27/2024:?177/82 ??01/25/2024:?144/66 ??01/23/2024:?104/86 BP?Sit?Pre ??01/27/2024:?169/71 ??01/25/2024:?138/77 ??01/23/2024:?120/49 BP?Stand?Post ??01/27/2024:?149/60 ??01/23/2024:?121/57 BP?Sit?Post ??01/27/2024:?130/57 ??01/25/2024:?121/59 ??01/23/2024:?121/54 Tx?Duration ??01/27/2024:?4:02 ??01/25/2024:?4:24 ??01/23/2024:?3:50 Missed?Treatments 0?-?last?30?days 0?-?last?60?days FLUID?ASSESSMENT EDW?(kg) ??01/27/2024:?100.5 ??01/25/2024:?100.5 ??01/23/2024:?100.5 Weight?Pre?(kg) ??01/27/2024:?102.8 ??01/25/2024:?103.5 ??01/23/2024:?103.8 Weight?Post?(kg) ??01/27/2024:?101.3 ??01/25/2024:?101.5 ??01/23/2024:?101.8 PWV?(kg) ??01/27/2024:?0.8 ??01/25/2024:?1.0 ??01/23/2024:?1.3 UF?Rate?(mL/kg/hr) ??01/27/2024:?3.7 ??01/25/2024:?4.5 ??01/23/2024:?5.1 ADEQUACY?ASSESSMENT Comments:?01/17?needs?repeat?KT/v spKt/V,?URR ??01/02/2024:?1.05,?58.0 ??12/05/2023:?1.8,?78.0 ??10/31/2023:?7.46,?97.0 ACCESS?ASSESSMENT ??Access?Type:?AVFistula ??Access?SubType:?Standard ??Access?Status:?Active?(In?Use)?-?09/14/2017 ??Access?Location:?Left?Forearm ??Created:?04/13/2017 Flow ??12/07/2023:?1367 ??11/16/2023:?886 ??10/05/2023:?1427 ANEMIA?ASSESSMENT HGB ??01/23/2024:?9.6 ??01/16/2024:?9.4 ??01/11/2024:?9.9 ?? Ferritin ??01/02/2024:?915.0 ??12/05/2023:?1057.0 ??10/31/2023:?1275.0 Mircera,?IVP?(mcg) ??01/20/2024:?150 ??12/16/2023:?150 ??12/02/2023:?150 Iron?Sucrose?(Venofer)?(mg) ??11/04/2023:?50 ??10/28/2023:?50 BMM?ASSESSMENT PTH,?Intact ??01/02/2024:?506.0 ??12/05/2023:?410.0 ??10/31/2023:?449.0 ?? Calcium,?Phosphorus ??01/23/2024:?8.2,?- ??01/18/2024:?-,?7.2 ??01/16/2024:?8.3,?- Vitamin?D?(Calcitriol)?Oral?(mcg) ??01/25/2024:?1.00 ??01/23/2024:?1.00 ??01/20/2024:?1.00 NUTRITION?ASSESSMENT Potassium,?Albumin ??01/16/2024:?3.8,?- ??01/02/2024:?5.2,?3.9 ??12/05/2023:?5.0,?4.2 ?? eNPCR ??01/02/2024:?0.72 ??12/05/2023:?0.88 ??10/31/2023:?1.62 DIAGNOSIS Chief?Complaint:?N18.6?End?stage?renal?disease Patient?data?updated?01/27/2024?at?12:07?PM Signed?By:?Lesa,?Simi,?SODA [employer] OPERATOR??on?01/27/2024?12:07:24 PM END OF DOCUMENT
--- OUTSIDE RECORDS SUMMARY | 2024-02-24 16:55 | XMS_ITS ---
Author Name Too Morgan Address [address] [place] [id number] Phone [phone] Organization [facility] e, NA DOCUMENT DISCLAIMER Multiple document versions may exist, please be sure you review the latest version. The information in the [facility] Progress Note Document represents a providers documented clinical note containing certain health and medical information. It may not contain the complete medical history for the patient and should be independently verified. The represented time in the document is Eastern Time PROVIDER ROUNDING NOTE COMPREHENSIVE Patient:?SINDI?FERNANDA,?1960,?63y,?M Dialysis?Location:?[facility] Attending?Bolt Sorter:?Too?Eddie Service?Date:?01/18/2024 Service?Provider:?Too?Eddie,? I?met?face?to?face?with?the?patient?today. 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 BP?Stand?Pre ??01/16/2024:?141/63 ??01/13/2024:?127/53 ??01/11/2024:?153/59 BP?Sit?Pre ??01/16/2024:?133/54 ??01/13/2024:?128/66 ??01/11/2024:?150/74 BP?Stand?Post ??01/16/2024:?125/59 ??01/11/2024:?123/54 BP?Sit?Post ??01/16/2024:?120/63 ??01/13/2024:?159/86 ??01/11/2024:?129/76 Tx?Duration ??01/16/2024:?3:53 ??01/13/2024:?4:05 ??01/11/2024:?4:01 Missed?Treatments 0?-?last?30?days 0?-?last?60?days FLUID?ASSESSMENT Fluid?status?not?acceptable.?Interdialytic?weight?gain?not?a cceptable.?Optimal?weight?discussed.? EDW?(kg) ??01/16/2024:?100.5 ??01/13/2024:?100.5 ??01/11/2024:?100.5 Weight?Pre?(kg) ??01/16/2024:?104.3 ??01/13/2024:?103.5 ??01/11/2024:?102.6 Weight?Post?(kg) ??01/16/2024:?101.2 ??01/13/2024:?101.4 ??01/11/2024:?101.1 PWV?(kg) ??01/16/2024:?0.7 ??01/13/2024:?0.9 ??01/11/2024:?0.6 UF?Rate?(mL/kg/hr) ??01/16/2024:?7.9 ??01/13/2024:?5.1 ??01/11/2024:?3.7 ADEQUACY?ASSESSMENT Comments:?01/17?needs?repeat?KT/v Adequacy?target?not?met.?Prescription?compliance?acceptable.? spKt/V,?URR ??01/02/2024:?1.05,?58.0 ??12/05/2023:?1.8,?78.0 ??10/31/2023:?7.46,?97.0 ACCESS?ASSESSMENT ??Access?Type:?AVFistula ??Access?SubType:?Standard ??Access?Status:?Active?(In?Use)?-?09/14/2017 ??Access?Location:?Left?Forearm ??Created:?04/13/2017 Flow ??12/07/2023:?1367 ??11/16/2023:?886 ??10/05/2023:?1427 Vascular?access?reviewed.?Current?access?is?permanent?and?functioning?well. ANEMIA?ASSESSMENT HGB?below?goal.?Iron?parameters?acceptable.?MICHEL?dose?inadequ ate.?Medications?adjusted.? HGB,?TSAT ??01/11/2024:?9.9,?- ??01/02/2024:?10.3,?27.0 ??12/26/2023:?11.1,?- ?? Ferritin ??01/02/2024:?915.0 ??12/05/2023:?1057.0 ??10/31/2023:?1275.0 Mircera,?IVP?(mcg) ??12/16/2023:?150 ??12/02/2023:?150 ??11/18/2023:?100 Iron?Sucrose?(Venofer)?(mg) ??11/04/2023:?50 ??10/28/2023:?50 ??10/21/2023:?50 BMM?ASSESSMENT PTH?controlled.?Calcium?controlled.?Phosphorus?elevated.?BMM?meds ?adherence?acceptable.?No?changes?indicated.? PTH,?Intact ??01/02/2024:?506.0 ??12/05/2023:?410.0 ??10/31/2023:?449.0 ?? Calcium,?Phosphorus ??01/11/2024:?8.3,?- ??01/02/2024:?8.4,?7.0 ??12/26/2023:?8.5,?- Vitamin?D?(Calcitriol)?Oral?(mcg) ??01/16/2024:?1.00 ??01/13/2024:?1.00 ??01/11/2024:?1.00 NUTRITION?ASSESSMENT Potassium?controlled.?Albumin?controlled.?Diet?reviewed?with?patient.? Potassium,?Albumin ??01/02/2024:?5.2,?3.9 ??12/05/2023:?5.0,?4.2 ??10/31/2023:?4.9,?4.3 ?? eNPCR ??01/02/2024:?0.72 ??12/05/2023:?0.88 ??10/31/2023:?1.62 PHYSICAL?EXAM Exam?Performed.?Vital?Signs?Reviewed.?Lungs?-?Clear. DIAGNOSIS Chief?Complaint:?N18.6?End?stage?renal?disease Patient?data?updated?01/18/2024?at?9:48?AM Signed?By:?Eddie,?Too,???on?01/18/2024?9:53:47?AM END OF DOCUMENT
--- OUTSIDE RECORDS SUMMARY | 2024-02-24 16:56 | XMS_ITS | Encounter Summary ---
Author Organization [facility] [place] [place] [address] Care Team Providers Care Striper Name Role Phone Kimani Leger MD Primary Care Provider [phone] Reason for Visit * Reason Onset Date Comments Bumped Appointment 01/18/2024 Encounter Details Date Type Department Care Team (Late st Contact Info) Description 01/18/2024 Telephone [place] [phone] Faye Valle PA [facility] [place] [address] Bumped Appointment Social History Tobacco Use Types Packs/Day Years Used Date Smoking Tobacco: Former Smokeless Tobacco: Never Comments:quit in his 20's Alcohol Use Standard Drinks/Week Comments No 0 (1 standard drink = 0.6 oz pur e alcohol) [facility] Utilities Answer Date Recorded In the past 12 months has [employer] electric, gas, oil, or water company threatened to shut off services in your home? No 01/06/2024 Hunger Vital Sign Answer Date Recorded Within the past 12 months, y ou worried that your food would run out before you got the money to buy more. Never true 01/06/20 24 Within the past 12 months, t he food you bought just didn't last and you didn't have money to get more. Never true 01/06/2024 PRAPARE - Transportation Answer Date Re corded In the past 12 months, has l ack of transportation kept you from medical appointments or from getting medications? No 10/2023 In the past 12 months, has l ack of transportation kept you from meetings, work, or from getting things needed for daily living? No 01/06/2024 Housing Stability Vital Sign Answer [place]ville e Recorded In the last 12 months, was t here a time when you were not able to pay the mortgage or rent on time? No 01/06/2024 In the past 12 months, how m any times have you moved where you were living? 1 01/06/2024 At any time in the past 12 m [facility], were you homeless or living in a half-way (including now)? No 01/06/2024 DH IPV Inpatient Questions Answer Date Recorded Does Anyone Try to Keep You From Having Contact with Others or Doing Things Outside Your Home? no 01/04/2024 Feels Threatened by Someone no 08/2023 Feels Unsafe at Home or Work/School no 01/04/2024 Physical Signs of Abuse Present no 01/04/2024 Sex and Gender Information Value Date Recorded Sex Assigned at Not on file Gender Identity Not on file Sexual Orientation Not on file documented as of this encounter Miscellaneous Notes * Telephone Encounter - Chiquita Herman - 01/27/2024 10:20 AM EDT NO RESPONSE FROM PATIENT, RESCHEDULED APPOINTMENT T Tuesday01/30/24 AT 2:30PM. WE HAVE LEFT SEVERAL MESSAGE FOR PATIENT TO CALL US BACK. * Telephone Encounter - Chiquita Herman - 01/24/2024 10:32 AM EDT LM #3 To ask patient to call back re: moving afternoon appointment 01/27/2024 to held spot in the morning at 10:00 AM with Faye Valle. * Telephone Encounter - Chiquita Herman - 01/20/2024 3:42 PM EDT LM #2 To ask patient to call back re: moving afternoon appointment 01/27/2024 to held spot in the morning at 10:00 AM with Faye Valle. * Telephone Encounter - Bibiana Prado - 01/18/2024 10:10 AM EDT Summary: Bumped Appointment LM #1 To ask patient to call back re: moving afternoon appointment 01/27/2024 to held spot in the morning at 10:00 AM with Faye Valle. documented in this encounter Plan of Treatment Not on file documented as of this encounter Visit Diagnoses Not on filedocumented in this encounter Care Teams Striper Relationship Specialty Start Date End Date Kimani Leger MD PCP - General Family Medicine 02/10/21 01/29/24 documented as of this encounter
--- OUTSIDE RECORDS SUMMARY | 2024-02-24 16:56 | XMS_ITS | Encounter Summary ---
[place] [address] Care Team Providers Care Senior Radiation Protection Technician Name Role Phone Kimani Leger MD Primary Care Provider [phone] Encounter Details Date Type Department Care Team (Late st Contact Info) Description 01/18/2024 Telephone [place] [phone] None None Social History Tobacco Use Types Packs/Day Years Used Date Smoking Tobacco: Former Smokeless Tobacco: Never Comments:quit in his 20's Alcohol Use Standard Drinks/Week Comments No 0 (1 standard drink = 0.6 oz pur e alcohol) [facility] Utilities Answer Date Recorded In the past 12 months has [employer] electric, gas, oil, or water company threatened [...] any time in the past 12 m [facility], were you homeless or living in a longterm (including now)? No 01/06/2024 DH IPV Inpatient [...] encounter Miscellaneous Notes * Telephone Encounter - Tejal Carballo - 01/19/2024 10:56 AM EDT Attempted to reach patient to reschedule 01/29 appointment. Unable to leave a voicemail. * Telephone Encounter - Mango Gonzalez - 01/18/2024 3:25 PM EDTSummary: 2 appointments reschedule CLINIC PHONE COVERAGE: Reason for Call: Appointments Reschedulings Message: Tracie - Deposit Clerk at [facility] called requesting to reschedule the following appointments. Please call to assist. Date: 01/30/24 Time: 10:00am Visit Type: [facility] Video Visit Follow Up Provider: Hafsa Bhatti APRN Reason for Cancelation: Other: Patient on dialysis on that day. States would need to move the appointment to either later afternoon that day or for next day & Date: 02/13/24 Time: 1:00pm Visit Type: Office Visit Provider: Sue Ramirez MD Reason for Cancelation: Other: Patient on dialysis on that day. States would need to move the appointment to either later afternoon that day or for next day. Comment: Tracie states that Tuesday, Tuesday, and Fridays are hard for patient to have appointmentsdue to dialysis so either Tuesdays or are best or last resort late late afternoon on Mondays, Wednesdays or fridays Caller Name (If other than patient): Tracie Relationship to Patient (if other than self): Deposit Clerk at [facility] Callback number: [phone] Best time you are available: Any Comment: Tracie states if unable to reach her, that office can also call patients Manager Molecular Shanika Patricia at [phone] Route Per Clinic Coverage Page documented in this encounter Plan of Treatment Not on file documented as of this encounter Visit Diagnoses Not on filedocumented in this encounter Care Teams Senior Radiation Protection Technician Relationship Specialty Start Date End Date Kimani Leger MD PCP - General Family Medicine 02/10/21 01/29/24 documented as of this encounter
--- OUTSIDE RECORDS SUMMARY | 2024-02-24 16:56 | XMS_ITS | Encounter Summary ---
[place] [address] Care Team Providers Care Junior Graphic Designer Name Role Phone None Primary Care Provider Unavailabl e Encounter Details Date Type Department Care Team (Late st Contact Info) Description 02/14/2024 Telephone [place] [phone] Jean Carlos Bradford Social History Tobacco Use Types Packs/Day Years Used Date Smoking Tobacco: Former Smokeless Tobacco: Never Comments:quit in his 20's Alcohol Use Standard Drinks/Week Comments No 0 (1 standard drink = 0.6 oz pur e alcohol) [facility] Utilities Answer Date Recorded In the past 12 months has [employer] electric, gas, oil, or water company threatened [...] any time in the past 12 m [facility], were you homeless or living in a intermediate (including now)? No 01/06/2024 DH IPV Inpatient [...] on filedocumented in this encounter Care Teams Junior Graphic Designer Relationship Specialty Start Date End Date None None PCP - General 01/30/24 documented as of this encounter
--- OUTSIDE RECORDS SUMMARY | 2024-02-24 16:56 | XMS_ITS | Encounter Summary ---
Author Organization [facility] [place] [place] [address] Care Team Providers Care Machine Compositor Name Role Phone None Primary Care Provider Unavailabl e Encounter Details Date Type Department Care Team (Latest Contact Info) Description 02/02/2024 External Results [place] [address] Leonardo Rodarte, AIRCRAFT DE ICER INSTALLER Acute hematogenous osteomyelitis of right foot Social History Tobacco Use Types Packs/Day Years Used Date Smoking Tobacco: Former Smokeless Tobacco: Never Comments:quit in his 20's Alcohol Use Standard Drinks/Week Comments No 0 (1 standard drink = 0.6 oz pur e alcohol) [facility] Utilities Answer Date Recorded In the past 12 months has e electric, gas, oil, or water company threatened [...] any time in the past 12 m [facility], were you homeless or living in a jail (including now)? No 01/06/2024 DH IPV Inpatient [...] Procedure Name Priority Date/Time Associated Diagnosis Comments CRP, ACUTE INFLAMMATION Routine 01/25/2024 12:00 AM EDT Acute hematogenous osteomyelitis of right foot CBC (WITH DIFF) Routine 01/25/2024 12:00 AM EDT Acute hematogenous osteomyelitis of right foot COMPREHENSIVE METABOLIC PANEL Routine 01/25/2024 12:00 AM EDT Acute hematogenous osteomyelitis of right foot documented in this encounter Results * (ABNORMAL) CBC (with Diff) (01/25/2024 12:00 AM EDT) WBC - External 5.52 EXTER NAL FACILITY RBC - External 3.06(L) EXTER NAL FACILITY Hemoglobin - External 9.6(L) EXTERNAL FACILITY Hematocrit - External 30.7(L) EXTERNAL FACILITY MCV - External 100 EXTER NAL FACILITY MCH - External 31.4(H) EXTER NAL FACILITY MCHC - External 31.3 EXTE RNAL FACILITY RDWCV - External 17.4(H) EXTERNAL FACILITY Platelets - External 118(L) EXTERNAL FACILITY Neutrophils % - External 64.6 EXTERNAL FACILITY Lymphocytes % - External 15.7(L) EXTERNAL FACILITY Monocytes % - External 5.2 EXTERNAL FACILITY Eosinophils % - External 10.3(H) EXTERNAL FACILITY Basophils % - External 1.3 EXTERNAL FACILITY Comment:Spectra Misc Lab Result - External See Scanned Results(L) EXTERNAL FACILITY Comment:Hemoglobin (x3) 28.8 ELROY 2.9 Blood VENOUS BLOOD SPECIMEN / Unknown 01/25/2024 Faby Ferrell MD HEMATOLOGY ORDERABLE S Performing Organization Address City/[facility] Co de Phone Number EXTERNAL FACILITY * (ABNORMAL) Comprehensive metabolic panel Non-fasting (01/25/2024 12:00 AM EDT) Blood Urea Nitrogen - External 52(H) EXTERNAL FACILITY Calcium - External 8.2(L) EXTERNAL FACILITY Blood VENOUS BLOOD SPECIMEN / Unknown 01/25/2024 Faby Ferrell MD CHEMISTRY ORDERABLES Performing Organization Address [facility] Co de Phone Number EXTERNAL FACILITY * (ABNORMAL) CRP, acute inflammation (01/25/2024 12:00 AM EDT) CRP - External 10.0(H) EXTER NAL FACILITY Comment:Spectra Blood VENOUS BLOOD SPECIMEN / Unknown 01/25/2024 Faby Ferrell MD CHEMISTRY ORDERABLES EXTERNAL FACILITY documented in this encounter Visit Diagnoses Diagnosis Acute hematogenous osteomyelitis of right foot documented in this encounter Care Teams Machine Compositor Relationship Specialty Start Date End Date None None PCP - General 01/30/24 documented as of this encounter
--- OUTSIDE RECORDS SUMMARY | 2024-02-24 16:56 | XMS_ITS | Encounter Summary ---
Author Organization [facility] [place] [address] Care Team Providers Care Eeler Name Role Phone None Primary Care Provider Unavailabl e Reason for Visit * Reason Onset Date Comments Appointment 02/13/2024 Encounter Details Date Type Department Care Team (Late st Contact Info) Description 02/13/2024 Telephone [place] [phone] Jackelyn Costa MD [facility] [address] [place] [address] Appointment Social History Tobacco Use Types Packs/Day Years Used Date Smoking Tobacco: Former Smokeless Tobacco: Never Comments:quit in his 20's Alcohol Use Standard Drinks/Week Comments No 0 (1 standard drink = 0.6 oz pur e alcohol) [facility] Utilities Answer Date Recorded In the past [...] any time in the past 12 m [facility], were you homeless or living in a fci (including now)? No 01/06/2024 DH IPV Inpatient [...] encounter Miscellaneous Notes * Telephone Encounter - Aviva Molinamariajose Del Rio - 02/13/2024 3:37 PM EDT CLINIC PHONE COVERAGE: Reason for Call: Appointment Rescheduling Message: Patient called requesting to reschedule the following appointment. Please call to assist. Date: 02/14/24 Time: 10:30 AM Visit Type: office visit Provider: Jackelyn Costa MD Reason for Cancelation: Transportation Caller Name (If other than patient): self Relationship to Patient (if other than self): Patient Callback number: Telephone Information: Best time you are available: Any Route Per Clinic Coverage Page documented in this encounter Plan of Treatment Not on file documented as of this encounter Visit Diagnoses Not on filedocumented in this encounter Care Teams Eeler Relationship Specialty Start Date End Date None None PCP - General 01/30/24 documented as of this encounter
--- OUTSIDE RECORDS SUMMARY | 2024-02-24 16:56 | XMS_ITS | Encounter Summary ---
Author Organization [facility] [place] [address] Care Team Providers Care Legal Director Name Role Phone None Primary Care Provider Unavailabl e Encounter Details Date Type Department Care Team (Latest Contact Info) Description 01/30/2024 Travel Social History Tobacco Use Types Packs/Day Years Used Date Smoking Tobacco: Former Smokeless Tobacco: Never Comments:quit in his 20's Alcohol Use Standard Drinks/Week Comments No 0 (1 standard drink = 0.6 oz pur e alcohol) [facility] Utilities Answer Date Recorded In the past 12 months has [employer], [employer], oil, or water [employer] threatened to shut off services in your [...] any time in the past 12 m [facility], were you homeless or living in a assisted (including now)? No 01/06/2024 IPV Inpatient Questions Answer Date Recorded Does [...] on filedocumented in this encounter Care Teams Legal Director Relationship Specialty Start Date End Date None None PCP - General 01/30/24 documented as of this encounter
--- OUTSIDE RECORDS SUMMARY | 2024-02-24 16:56 | XMS_ITS | Encounter Summary ---
Author Organization [facility] [place] [address] Care Team Providers Care Job Developer Name Role Phone Kimani Leger MD Primary Care Provider [phone] Encounter Details Date Type Department Care Team (Late st Contact Info) Description 01/24/2024 2:00 PM EDT TH Visit (TeleHealth) [place] [address] Hafsa Bhatti APRN [facility] [place] [address] Social History Tobacco Use Types Packs/Day Years Used Date Smoking Tobacco: Former Smokeless Tobacco: Never Comments:quit in his 20's Alcohol Use Standard Drinks/Week Comments No 0 (1 standard drink = 0.6 oz pur e alcohol) [facility] Utilities Answer Date Recorded In the past 12 months has th e electric, gas, oil, or water company [...] any time in the past 12 m on[facility], were you homeless or living in a longterm (including now)? No 01/06/2024 IPV Inpatient Questions [...] on filedocumented in this encounter Care Teams Job Developer Relationship Specialty Start Date End Date Kimani Leger MD PCP - General Family Medicine 02/10/21 01/29/24 documented as of this encounter
--- OUTSIDE RECORDS SUMMARY | 2024-02-24 16:56 | XMS_ITS | Encounter Summary ---
Author Organization [facility] [place] [address] Care Team Providers Care Natural Gas Field Processing Supervisor Name Role Phone None Primary Care Provider Unavailabl e Encounter Details Date Type Department Care Team (Late st Contact Info) Description 02/01/2024 Orders Only [place] [address] Nettie Davis [address]N [facility] [place] [address] Social History Tobacco Use Types Packs/Day Years Used Date Smoking Tobacco: Former Smokeless Tobacco: Never Comments:quit in his 20's Alcohol Use Standard Drinks/Week Comments No 0 (1 standard drink = 0.6 oz pur e alcohol) [facility] Utilities Answer Date Recorded In the [...] on filedocumented in this encounter Care Teams Natural Gas Field Processing Supervisor Relationship Specialty Start Date End Date None None PCP - General 01/30/24 documented as of this encounter
--- OUTSIDE RECORDS SUMMARY | 2024-02-24 16:56 | XMS_ITS | Encounter Summary ---
[place] [address] Care Team Providers Care Can Runner Name Role Phone Kimani Leger MD Primary Care Provider [phone] Encounter Details Date Type Department Care Team (Late st Contact Info) Description 01/13/2024 Orders Only Nephrology [place] [address] Nettie Davis, [facility] [place] [address] Social History Tobacco Use Types Packs/Day Years Used Date Smoking Tobacco: Former Smokeless Tobacco: Never Comments:quit in his 20's Alcohol Use Standard Drinks/Week Comments No 0 (1 standard drink = 0.6 oz pur e alcohol) [facility] Utilities Answer Date Recorded In [...] any time in the past 12 m [facility], were you homeless or living in a retirement (including now)? No 01/06/2024 DH IPV Inpatient [...] on filedocumented in this encounter Care Teams Can Runner Relationship Specialty Start Date End Date Kimani Leger MD PCP - General Family Medicine 02/10/21 01/29/24 documented as of this encounter
--- OUTSIDE RECORDS SUMMARY | 2024-02-24 16:56 | XMS_ITS | Clinical Summary ---
[facility] [place] [address] Care Team Providers Care Cattle Manager Name Role Phone None Primary Care Provider Unavailabl e Allergies Active Allergy Reactions Criticality Noted Date [...] 2 tablets by mouth nightly. 08/04/2019 Active insulin needles, disposable, 31 gauge x /16 Needle Inject 1 each subcutaneously 4 times [...] daily. 30 tablet 11 02/25/2023 4 Active sevelamer carbonate (Renvela) 800 mg tablet Take 3 tablets by mouth 3 times daily (with meals). 810 tablet 3 02/01/2024 Active Active Problems Problem Noted Date Diagnosed Date Osteomyelitis 5th toe R, s/p partial 5th ray resection [place] 01/04/24 01/04/2024 ESRD on dialysis 06/11/2020 Closed fracture of [...] Encounters Date Type Department Care Team Description 02/14/2024 Telephone [place] [address] Jean Carlos Bradford 02/13/2024 Telephone [place] [phone] Jackelyn Costa MD Appointment 02/02/2024 External Results [place] [phone] Leonardo Rodarte, [facility] Acute hematogenous osteomyelitis of right foot 02/01/2024 Orders Only Nephrology [place] [address] Nettie Davis, MANAGER OF WAREHOUSE 01/30/2024 2:30 PM EDT Office [place] [phone] Faye Valle PA Acute hematogenous osteomyelitis of right foot 01/30/2024 Travel 01/24/2024 2:00 PM EDT TH Visit (TeleHealth) [place] [address] Hafsa Bhatti, MANAGER OF WAREHOUSE 01/18/2024 Telephone [place] [phone] None 01/18/2024 Telephone [place] [phone] Faye Valle PA Bumped Appointment 01/13/2024 Orders Only Nephrology [place] [phone] Nettie Davis APRN 01/05/2024 Telephone Orthopaedics at [place] [phone] Thania Wesley MD 01/04/2024 4:56 PM EDT - 01/04/2024 6:05 PM EDT Surgery Main Operating Room [place] [phone] Thania Wesley MD AMPUTATION, TRANSMETATARSAL TOE, ONE TOE (WRVU 6.64) 01/04/2024 3:23 PM EDT Anesthesia Event Main Operating Room [place] [phone] Elena Veronica MD Brennan, Kevin M 01/04/2024 12:41 AM EDT - 01/09/2024 5:57 PM EDT Hospital Encounter Surgical Unit Level 4 Wing C at [place] [phone] Larisa George MD Campbell, Dewayne L, DO Mercado, Rima R, MD Souther, MD Antonino Mathews Gurbakhshish, MD Groff, Haja Carlin MD Gangrene of toe of right foot; Acute hematogenous osteomyelitis of right foot Discharge Disposition: Home with [facility] 01/04/2024 Travel 01/03/2024 10:15 PM EDT Ancillary Procedure Radiology Library at [facility], [place] [address] 01/03/2024 [place] [address] Shreya Moscoso MD 12/28/2023 6:45 PM EDT Ancillary Procedure Radiology Library at [facility], [place] [address] Bradford Momin MD 12/28/2023 6:40 PM EDT Ancillary Procedure Radiology Library at [facility], [place] [address] Bradford Momin MD from Last 3 Months Immunizations Name Administration Dates Next Due Covid-19 Monovalent (Moderna Spikevax) 12yrs+ ([id number]) 03/12/2021,08/25/2020,07/28/2020 Pneumococcal 23-Valent Polys accharide (Pneumovax 23) 05/23/2006 Family History Medical History Relation Comments Diabetes [...] drink = 0.6 oz pur e alcohol) [facility] Utilities Answer Date Recorded In the [...] any time in the past 12 m [facility], were you homeless or living in a group home (including now)? No 01/06/2024 IPV Inpatient Questions [...] Sign Reading Time Taken Comments Blood Pressure 164/81 01/09/2024 3:05 PM EDT Pulse 77 01/09/2024 3:05 PM EDT Temperature 36.9 ??C (98.4 ??F) 01/09/2024 3:05 PM ED T Respiratory Rate 16 01/09/2024 9:30 AM EDT Oxygen Saturation 97% 01/09/2024 3:05 PM EDT Inhaled Oxygen Concentration - - Weight 99.8 kg (220 lb) 01/30/2024 1:59 PM EDT Height 162.6 cm (5' 4) 01/30/2024 1:59 PM EDT Body Mass Index 37.76 01/30/2024 1:59 PM EDT Plan of Treatment Health Maintenance Due Date Last Done Comments CT Colonography 1959 Colonoscopy 1959 Colorectal Cancer Screening 1959 FIT DNA 1959 FIT 1959 Sigmoidoscopy (10 year) with FIT yearly 1959 Sigmoidoscopy 1959 Lipid Screening 1977 Tetanus/Diphtheria/Pertussis Vaccines (1 - Tdap) 1978 Pneumococcal Vaccine: At-Ris k 5-64yrs (2 of 2 - PCV) 05/23/2007 05/23/2006 Zoster vaccine (1 of 2) 2009 DM Hemoglobin A1c 05/08/2020 02/06/2020, , 07/29/2019, Additional history exists DM Opthalmology Exam 06/08/2022 06/08/2021, 04/22/2020, 01/04/2020, Additional history exists Covid-19 Vaccine (4 - 2022-2 4 season) 2024 03/12/2021, 08/25/2020, 07/28/2020 Influenza (Flu) vaccine (1 o f 1 - Influenza standard series) 01/01/2024 DM Creatinine yearly 01/24/2025 01/25/2024, 01/07/2024, 01/06/2024, Additional history exists HIV screen Completed 02/06/2020, 06/08/2018 Hepatitis C Screening Completed 02/06/2020 , 06/08/2018, 06/08/2018 Medical Devices Implanted Type Area Information Strategist Device Identifier Shelf Expiration Date Model / Serial / Lot Iol,Ma60ac,25. 0 ([id number]) ([employer]) - [id number] Implanted:Qty: 1 on 07/18/2012 by Phillip Schwartz MD at [facility] IMPLANTS Right: Eye [employer] - [id number] 10/18/2012 MA60AC 25.0 / [id number] / Iol,Sn60wf,27. 0 ([id number]) ([employer]) - [id number] Implanted:Qty: 1 on 11/29/2012 by Erasmo George MD at [facility] IMPLANTS Left: Eye 07/30/2016 SN60WF 27.0 / [id number] / [id number] 27.0 Procedures Procedure Name Priority Date/Time Associated Diagnosis Comments CBC (WITH DIFF) Routine 01/25/2024 12:00 AM EDT Acute hematogenous osteomyelitis of right foot COMPREHENSIVE METABOLIC PANEL Routine 01/25/2024 12:00 AM EDT Acute hematogenous osteomyelitis of right foot CRP, ACUTE INFLAMMATION Routine 01/25/2024 12:00 AM EDT Acute hematogenous osteomyelitis of right foot LAB SCAN 01/25/2024 12:00 AM EDT POC, GLUCOSE Routine 01/09/2024 11:34 AM EDT POC, GLUCOSE Routine 01/09/2024 7:37 AM EDT POC, GLUCOSE Routine 01/08/2024 8:59 PM EDT POC, GLUCOSE Routine 01/08/2024 4:52 PM EDT POC, GLUCOSE Routine 01/08/2024 12:10 PM EDT POC, GLUCOSE Routine 01/08/2024 11:42 AM EDT POC, GLUCOSE Routine 01/08/2024 7:39 AM EDT POC, GLUCOSE Routine 01/07/2024 7:58 PM EDT POC, GLUCOSE Routine 01/07/2024 5:19 PM EDT POC, GLUCOSE Routine 01/07/2024 11:54 AM EDT POC, GLUCOSE Routine 01/07/2024 7:48 AM EDT PHOSPHORUS Add-On 01/07/2024 5:11 AM EDT BASIC METABOLIC PANEL Routine 01/07/2024 5:11 AM EDT CBC (WITH DIFF) Routine 01/07/2024 5:11 AM EDT POC, GLUCOSE Routine 01/06/2024 10:47 PM EDT POC, GLUCOSE Routine 01/06/2024 4:35 PM EDT POC, GLUCOSE Routine 01/06/2024 11:38 AM EDT U ALBUMIN/CRE RATIO STAT 01/06/2024 1 1:22 AM EDT POC, GLUCOSE Routine 01/06/2024 7:41 AM EDT VANCOMYCIN LEVEL, RANDOM Timed 01/06/2024 5:11 AM EDT BASIC METABOLIC PANEL Routine 01/06/2024 5:11 AM EDT CBC (WITH DIFF) Routine 01/06/2024 5:11 AM EDT POC, GLUCOSE Routine 01/05/2024 9:14 PM EDT POC, GLUCOSE Routine 01/05/2024 3:59 PM EDT POC, GLUCOSE Routine 01/05/2024 11:43 AM EDT VANCOMYCIN LEVEL, RANDOM Timed 01/05/2024 8:18 AM EDT BASIC METABOLIC PANEL Routine 01/05/2024 8:18 AM EDT CBC (WITH DIFF) Routine 01/05/2024 8:18 AM EDT POC, GLUCOSE Routine 01/04/2024 8:58 PM EDT XR FOOT MIN 3 VIEWS RIGHT Routine 01/04/2024 7:42 PM EDT POC, GLUCOSE Routine 01/04/2024 5:49 PM EDT POC, GLUCOSE Routine 01/04/2024 4:57 PM EDT SCAN DOC: TELEMETRY STRIPS 01/04/2024 4:45 PM EDT ANAEROBIC CULTURE STAT 01/04/2024 3:5 1 PM EDT BONE CULTURE STAT 01/04/2024 3:51 PM EDT BONE CULTURE, AEROBIC & ANAEROBIC STAT 01/04/2024 3:51 PM EDT MODIFIER WOUND VAC 01/04/2024 3: 26 PM EDT Osteomyelitis R 5th toe Amputation Metatarsal+Toe, Single (69834) 01/04/2024 3:26 PM EDT Osteomyelitis R 5th toe AMPUTATION, TRANSMETATARSAL TOE, ONE TOE Routine 01/04/2024 2:56 PM EDT POC, GLUCOSE Routine 01/04/2024 11:26 AM EDT POC, GLUCOSE Routine 01/04/2024 6:10 AM EDT MRI FOOT WWO CONTRAST RIGHT STAT 01/04/2024 5:40 AM EDT XR FOOT MIN 3 VIEWS RIGHT STAT 01/04/2024 3:55 AM EDT VANCOMYCIN LEVEL, RANDOM STAT Add-On 01/04/2024 3:41 AM EDT SEDIMENTATION RATE STAT Add-On 01/04/2024 3: 41 AM EDT CRP, ACUTE INFLAMMATION STAT 01/04/2024 3:41 AM EDT BASIC METABOLIC PANEL STAT 01/04/2024 3:41 AM EDT CBC (WITH DIFF) STAT 01/04/2024 3:41 AM EDT JOSÉ MIGUEL, LEGS, MULTIPLE LEVELS STAT 01/04/2024 3:19 AM EDT Gangrene of toe of right foot FILM LIBRARY STORAGE ONLY DX FOOT STAT 01/03/2024 10:10 PM EDT FILM LIBRARY STORAGE ONLY CT LOWER EXTREMITY Routine 12/28/2023 6:37 PM EDT FILM LIBRARY STORAGE ONLY DX FOOT Routine 12/28/2023 6:35 PM EDT HC HIV SCREEN, 4TH GENERATION Routine 02/06/2020 2:48 PM EDT Coronary artery disease, angina presence unspecified, unspecified vessel or lesion type, unspecified whether [place] or transplanted heart Benign prostatic hyperplasia, unspecified [...] unspecified vessel or lesion type, unspecified whether [place] or transplanted heart Benign prostatic hyperplasia, unspecified [...] unspecified vessel or lesion type, unspecified whether [place] or transplanted heart Benign prostatic hyperplasia, unspecified whether lower urinary tract symptoms present Diabetes mellitus due to underlying condition with diabetic nephropathy, 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 End stage renal disease Pre-transplant evaluation for kidney transplant from Last 3 Months or Most Recently Relevant to Health Maintenance Results * (ABNORMAL) CRP, acute inflammation (01/25/2024 12:00 AM EDT) Only the most recent of2 resultswithin the time period is included. CRP - External 10.0(H) EXTER NAL FACILITY Comment:Spectra Blood VENOUS BLOOD SPECIMEN / Unknown 01/25/2024 Faby Ferrell MD CHEMISTRY ORDERABLES EXTERNAL FACILITY * Scan Doc: Lab (01/25/2024 12:00 AM EDT) Narrative 01/25/2024 12:00 AM EDT Ordered by an unspecified provider. Scanning Provider MEDIA MGR SCAN EXT O RDR/RSLT * (ABNORMAL) CBC (with Diff) (01/25/2024 12:00 AM EDT) Only the most recent of5 resultswithin the time period is included. WBC - External 5.52 EXTER NAL FACILITY [...] MD HEMATOLOGY ORDERABLE S Performing Organization Address City/[facility]/ZIP Co de Phone Number EXTERNAL FACILITY * (ABNORMAL) Comprehensive metabolic panel Non-fasting (01/25/2024 12:00 AM EDT) Blood Urea Nitrogen - External 52(H) EXTERNAL FACILITY Calcium - External 8.2(L) EXTERNAL FACILITY Blood VENOUS BLOOD SPECIMEN / Unknown 01/25/2024 Faby Ferrell MD CHEMISTRY ORDERABLES Performing Organization Address City/[facility]/ZIP Co de Phone Number EXTERNAL FACILITY * POC, GLUCOSE (01/09/2024 11:34 AM EDT) Only the most recent of23 resultswithin the time period is included. Glucometer, POC 155 65 - 199 mg/dL 01/09/2024 11:34 AM EDT [facility] Comment:Supplemental ranges: <140 mg/dL before meals <180 mg/dL all other times of the day. Blood CAPILLARY BLOOD / Unknown 01/09/2024 11:34 AM EDT 01/09/2024 11:34 AM EDT Haja Garner MD POINT OF CARE TEST O RDERABLES Performing Organization Address City/[facility]/ZIP Co de Phone Number [facility] [place] [address] * (ABNORMAL) Phosphorus (01/07/2024 5:11 AM EDT) Phosphorus 7.1(H) 2.5 - 4.5 mg/dL 01/07/2024 9:02 AM EDT [facility] Blood VENOUS BLOOD SPECIMEN / Unknown IP Care Team Draw / Unknown 01/07/2024 5:11 AM EDT 01/07/2024 5:36 AM EDT Nettie Davis MANAGER OF WAREHOUSE CHEMISTRY ORDER ROBBIE [facility] [place] [address] * (ABNORMAL) Basic Metabolic Panel (01/07/2024 5:11 AM EDT) Only the most recent of4 resultswithin the time period is included. Pathologist [facility] Glucose 138 65 - 199 mg/dL 01/07/2024 6:22 AM EDT [facility] Comment:Glucose Concentratio n >=200 mg/dL plus symptoms is consistent with Diabetes Mellitus. Blood Urea Nitrogen 49(H) 10 - 20 mg/dL 01/07/2024 6:22 AM EDT [facility] Creatinine 9.75(H) 0.80 - 1.50 mg/dL 01/07/2024 6:22 AM EDT [facility] Sodium 138 135 - 145 mMol/L 01/07/2024 6:22 AM EDT [facility] Potassium 4.6 3.5 - 5.0 mMol/L 01/07/2024 6:22 AM EDT [facility] Chloride 97(L) 98 - 107 mMol/L 01/07/2024 6:22 AM EDT [facility] Carbon Dioxide 25 22 - 31 mMol/L 01/07[facility]2024 [facility] Anion Gap 16(H) 5 - 15 mMol/L 01/07/2024 6:[facility] Calcium 8.7 8.5 - 10.5 mg/dL 01/07/2024 6:22 AM EDT [facility] Est Glomerular Filtration Rate - Male 5 mL/min/1. 73 m?? 01/07/2024 6:22 AM EDT [facility] Comment: This patient's estimated GFR was calculated using the 2020 CKD-EPI equation. The estimated GFR can vary from the measured GFR by up to 30% in the absence of rapidly changing kidney function. Assessment of the estimated GFR is not appropriate when creatinine concentrations are rapidly changing. For clinical situations in which a more precise estimate of GFR is necessary, consider alternative methods of GFR estimation such as a 24-hour urine creatinine clearance. Assignment of CKD stage 1 - 5 for patients with an eGFR near the transition point between stages may be based on clinical assessment of muscle mass and symptoms in addition to eGFR. Link: eGFR Calculator [employer] Blood VENOUS BLOOD SPECIMEN / Unknown IP Care Team Draw / Unknown 01/07/2024 5:11 AM EDT 01/07/2024 5:36 AM EDT Ramírez Gasca DO CHEMISTRY ORDERABL ES [facility] [place] [address] * (ABNORMAL) U Albumin/Cre Ratio (01/06/2024 11:22 AM EDT) Albumin, Urine 325.3 mg/L 01/06/2024 1:47 PM EDT [facility] Creatinine, Urine 125 mg/dL 024 1:47 PM EDT [facility] Albumin / Creatinine Ratio, Urine 260(H) 0 - 29 mcg/mg Cr 01/06/2024 1:47 PM EDT [facility] Comment: Reference Ranges: ?? <30 mcg/mg: Normal ?? 30-300 mcg/mg: Moderately increased albuminuria.* ?? >300 mcg/mg: Severely increased albuminuria. ?? * ACEI or ARB recommended if diabetic; suggested if BP>130/80 without diabetes ?? ACEI or ARB strongly recommended if diabetic; recommended if BP>130/80 without diabetes ??Two of three specimens collected within a 3 to 6 month period should be abnormal before considering a patient to have albuminuria. Transient causes: exercise, fever, infection, CHF, marked hyperglycemia or hypertension. Persistent albuminuria indicates CKD and is an independent risk factor for ASCVD. ??ADA Standards of Medical Care in Diabetes-2016; KDIGO: Kidney International Supplements (2012) 2 ??[phone] Urine URINE SPECIMEN / Unknown Non Blood Collection / Unknown 01/06/2024 11:22 AM EDT 01/06/2024 11:27 AM EDT Ramírez Gasca DO URINE ORDERABLES Performing Organization Address City/[facility]/ZIP Co de Phone Number [facility] [place] [address] * Vancomycin Level, Random (01/06/2024 5:11 AM EDT) Only the most recent of3 resultswithin the time period is included. Vancomycin, Random 19.9 mg/L 2023 6:02 AM EDT [facility] Comment:This level is for de termination of the patient's vancomycin qmpt-mmwlr-trj-curve (AUC) value. Contact the inpatient pharmacy for interpretation. Blood VENOUS BLOOD SPECIMEN / Unknown IP Care Team Draw / Unknown 01/06/2024 5:11 AM EDT 01/06/2024 5:31 AM EDT Carmelina Giraldo MD CHEMISTRY ORDERAB LES Performing Organization Address City/[facility]/ZIP Co de Phone Number [facility] [place] [address] * XR Foot Min 3 views Right (Generic) (01/04/2024 7:42 PM EDT) Only the most recent of2 resultswithin the time period is included. WORKSTATION ID [id number] RAD Anatomical Region Laterality Modality Foot Right Digital Radiogra phy Impressions 01/05/2024 2:34 AM EDT 1. ??Interval partial fifth ray resection. Exam to serve as baseline for future comparison. 2. ??No acute osseous abnormality. Thank you for letting us participate in the care of this patient. ??If you are a health care provider and have any questions regarding this report, please contact the number below. ??For patients who have questions please contact the health healthcare prof that requested your imaging first. ? Electronically signed by: Aaron Charles MD, [facility] ??([phone]), at 01/05/2024 2:34 AM Narrative 01/05/2024 2:34 AM EDT EXAMINATION: XR FOOT MIN 3 VIEWS RIGHT (GENERIC) CLINICAL HISTORY: s/p 5th ray resection TECHNIQUE: 3 views RIGHT foot COMPARISON: Right foot radiographs performed earlier 01/04/2024 FINDINGS: Interval partial fifth ray resection to the distal fifth metatarsal shaft level. No acute fracture or dislocation. Osteoarthritic changes in the midfoot with subchondral sclerosis, cysts and small osteophytes, unchanged. Healed fracture deformity of the second proximal phalanx. Plantar calcaneal spur and atherosclerotic vascular calcifications. Procedure Note Aaron Charles MD - 01/05/2024 EXAMINATION: XR FOOT MIN 3 VIEWS RIGHT (GENERIC) CLINICAL HISTORY: s/p 5th ray resection TECHNIQUE: 3 views RIGHT foot COMPARISON: Right foot radiographs performed earlier 01/04/2024 FINDINGS: Interval partial fifth ray resection to the distal fifth metatarsal shaftlevel. No acute fracture or dislocation. Osteoarthritic changes in the midfootwith subchondral sclerosis, cysts and small osteophytes, unchanged. Healedfracture deformity of the second proximal phalanx. Plantar calcaneal spur and atherosclerotic vascular calcifications. IMPRESSION 1. Interval partial fifth ray resection. Exam to serve as baseline forfuture comparison. 2. No acute osseous abnormality. Thank you for letting us participate in the care of this patient. If youare a health care provider and have any questions regarding this report,please contact the number below. For patients who have questions please contactthe health healthcare prof that requested your imaging first. Jennie Curiel MD IMG DX ORDERABLES * Scan Doc: Telemetry Strips (01/04/2024 4:45 PM EDT) Narrative 01/04/2024 4:45 PM EDT Ordered by an unspecified provider. Scanning Provider MEDIA MGR SCAN EXT O RDR/RSLT * Anaerobic Culture (01/04/2024 3:51 PM EDT) Anaerobic Culture No anaerobic organisms isolated 01/08/2024 1:53 PM EDT [facility] Bone STRUCTURE OF TOE OF RIGHT FOOT / Unknown 01/04/2024 3:51 PM EDT Comment:Diabetes Thania Wesley MD MICROBIOLOGY - GENER AL ORDERABLES [facility] [place] [address] * (ABNORMAL) Bone Culture (01/04/2024 3:51 PM EDT) Bone Culture Rare Klebsiella oxytoca(A) VITEK 2 METHOD 02/07/2024 10:09 AM EDT [facility] Bone Culture Rare Acinetobacter species(A) VITEK 2 METHOD 02/07/2024 10:09 AM EDT [facility] Bone Culture Rare Staphylococcus aureus(A) VITEK 2 METHOD 02/07/2024 10:09 AM EDT [facility] Gram Stain Few neutrophils 10:09 AM EDT [facility] Gram Stain No microorganisms seen 02/07/2024 10:09 AM EDT [facility] Bone STRUCTURE OF TOE OF RIGHT FOOT / Unknown 01/04/2024 3:51 PM EDT Comment:Diabetes Narrative Organism Antibiotic Method Susceptibility Klebsiella oxytoca Ampicillin VITEK 2 METHOD >=32.0 ug/ml: Resistant Klebsiella oxytoca Ampicillin + Sulbactam VITEK 2 METH OD =8.0 ug/ml: Susceptible Klebsiella oxytoca Cefazolin (Systemic) VITEK 2 METHOD Resistant Klebsiella oxytoca Cefepime VITEK 2 METHOD <=0.12 ug/ml: Susceptible Klebsiella oxytoca Ceftriaxone VITEK 2 METHOD <=0.25 ug/ml: Susceptible Klebsiella oxytoca Ciprofloxacin VITEK 2 METHOD <=0.06 ug/ml: Susceptible Klebsiella oxytoca Gentamicin VITEK 2 METHOD <=1.0 ug/ml: Susceptible Klebsiella oxytoca Levofloxacin VITEK 2 METHOD <=0.12 ug/ml: Susceptible Klebsiella oxytoca Piperacillin/Tazobactam VITEK 2 MET HOD <=4.0 ug/ml: Susceptible Klebsiella oxytoca Trimethoprim/Sulfa VITEK 2 METHOD <=20.0 ug/ml: Susceptible Acinetobacter species Amikacin VITEK 2 METHOD <=2.0 ug/ml: Susceptible Acinetobacter species Ampicillin + Sulbactam VITEK 2 M ETHOD <=2.0 ug/ml: Susceptible Acinetobacter species Cefepime VITEK 2 METHOD 8.0 ug/ml: Susceptible Acinetobacter species Ceftazidime VITEK 2 METHOD 8.0 ug/ml: Susceptible Acinetobacter species Ciprofloxacin VITEK 2 METHOD 0.5 ug/ml: Susceptible Acinetobacter species Levofloxacin VITEK 2 METHOD 0.5 ug/ml: Susceptible Acinetobacter species Meropenem VITEK 2 METHOD 0.5 ug/ml: Susceptible Acinetobacter species Trimethoprim/Sulfa VITEK 2 METHO D <=20.0 ug/ml: Susceptible Staphylococcus aureus Clindamycin VITEK 2 METHOD <=0.25 ug/ml: Resistant Comment:This is a co rrected result. Previous result was Susceptible (<=0.25 ug/ml) on 01/07/2024 at 1054 EDT Staphylococcus aureus Gentamicin VITEK 2 METHOD <=0.5 ug/ml: Susceptible Comment:Gentamicin i s not appropriate for monotherapy for gram-positive infections. Staphylococcus aureus Linezolid VITEK 2 METHOD 2.0 ug/ml: Susceptible Staphylococcus aureus Oxacillin VITEK 2 METHOD 0.5 ug/ml: Susceptible Comment:Oxacillin (m ethicillin) susceptibility is a surrogate for the oral and parenteral cephalosporins, beta-lactam combination agents (amoxicillin-clavulanate, ampicillin-sulbactam and piperacillin-tazobactam) and carbapenem agents. It is NOT a surrogate for penicillin, ampicillin or piperacillin susceptibility. Staphylococcus aureus Trimethoprim/Sulfa VITEK 2 METHO D <=10.0 ug/ml: Susceptible Staphylococcus aureus Tetracycline VITEK 2 METHOD <=1.0 ug/ml: Susceptible Comment:Based on tet racycline susceptibility, this organism is considered susceptible to doxycycline. Staphylococcus aureus Vancomycin VITEK 2 METHOD 1.0 ug/ml: Susceptible Comment:The previously repor ariadne component LEVOFLOXACIN is no longer being reported. Thania Wesley MD MICROBIOLOGY - GENER AL ORDERABLES [facility] [place] [address] * MRI Foot wwo Contrast Right (01/04/2024 5:40 AM EDT) [employer] WORKSTATION ID [id number] DH RAD Anatomical Region Laterality Modality Foot Right Magnetic Resonan ce Impressions 01/04/2024 8:31 AM EDT 1. ??Deep ulceration of 5th toe distal phalange exposing the underlying bone with acute osteomyelitis 5th distal and proximal phalanges. ??No osteomyelitis of 5th metatarsal 2. ??Superficial plantar ulceration underneath 1st metatarsal head with no evidence of osteomyelitis of 1st metatarsal. 3. ??Subcutaneous edema/enhancement surrounding above-mentioned ulcerations and dorsum foot suggestive of cellulitis. ??No organized fluid collection or abscess. 4. ??Midfoot osteoarthropathy. Thank you for letting us participate in the care of this patient. ??If you are a health care provider and have any questions regarding this report, please contact the number below. ??For patients who have questions please contact the health healthcare prof that requested your imaging first. ? Narrative 01/04/2024 8:31 AM EDT EXAMINATION: MRI FOOT WWO CONTRAST RIGHT CLINICAL HISTORY: 63 y.o. PMH DM and ESRD with known osteomyelitis of the foot and right pinky toe that is gangrenous TECHNIQUE: Noncontrast MRI of the right is performed with axial T1, T2 FS, VIBE FS; coronal STIR and sagittal T1 sequences. Following the intravenous administration of 21 mL Dotarem contrast, 3-plane VIBE FS sequences are acquired. COMPARISON: Radiographs right foot 01/04/2024 FINDINGS: Bone/soft tissues: Ulcerations: * ??10 mm deep soft tissue wound/ulcer of distal tip of 5th toe, which exposes underlying cortex of the distal phalange.. ??There is marrow edema with T1 hypo and STIR hyperintensity, and postcontrast enhancement compatible with osteomyelitis of 5th distal and proximal phalanges. ??No marrow edema in 5th metatarsal. ??The joint effusion of 5th IP or 5th MTP. ??The surrounding soft tissues demonstrate increased and mild enhancement suggesting cellulitis. ??Aside from above no additional sites of osteomyelitis * ??Superficial plantar ulceration underneath 1st metatarsal head, 0.9 cm wide (series [id number] image 72). ??The ulceration does not contact in the underlying flexor pollicis longus tendon. ??Adjacent soft tissue edema/enhancement suggest cellulitis. ?? * ??There is diffuse skin thickening, and subcutaneous edema/enhancement of the dorsal midfoot in keeping with cellulitis. ??No organized fluid collections. Current examination is not tailored to evaluate internal derangement of the foot. ??The Lisfranc, metatarsals and metatarsophalangeal collateral ligaments and tendons are grossly intact. ??No tenosynovitis. ??Osteoarthropathy of navicular-medial cuneiform joint with high-grade chondromalacia and subchondral cyst/edema (series 5001 image 11). ??Moderate osteoarthropathy of 2nd TMT with subchondral cysts. Procedure Note Caden Kemp MD - 01/04/2024 EXAMINATION: MRI FOOT WWO CONTRAST RIGHT CLINICAL HISTORY: 63 y.o. PMH DM and ESRD with known osteomyelitis of thefoot and right pinky toe that is gangrenous TECHNIQUE: Noncontrast MRI of the right is performed with axial T1, T2 FS, VIBE FS;coronal STIR and sagittal T1 sequences. Following the intravenous administrationof 21 mL Dotarem contrast, 3-plane VIBE FS sequences are acquired. COMPARISON: Radiographs right foot 01/04/2024 FINDINGS: Bone/soft tissues: Ulcerations: * 10 mm deep soft tissue wound/ulcer of distal tip of 5th toe, whichexposes underlying cortex of the distal phalange.. There is marrow edema with T1hypo and STIR hyperintensity, and postcontrast enhancement compatible with osteomyelitis of 5th distal and proximal phalanges. No marrow edema in5th metatarsal. The joint effusion of 5th IP or 5th MTP. The surroundingsoft tissues demonstrate increased and mild enhancement suggesting cellulitis.Aside from above no additional sites of osteomyelitis * Superficial plantar ulceration underneath 1st metatarsal head, 0.9 cmwide (series [id number] image 72). The ulceration does not contact in theunderlying flexor pollicis longus tendon. Adjacent soft tissue edema/enhancementsuggest cellulitis. * There is diffuse skin thickening, and subcutaneous edema/enhancement ofthe dorsal midfoot in keeping with cellulitis. No organized fluidcollections. Current examination is not tailored to evaluate internal derangement ofthe foot. The Lisfranc, metatarsals and metatarsophalangeal collateralligaments and tendons are grossly intact. No tenosynovitis. Osteoarthropathy of navicular-medial cuneiform joint with high-grade chondromalacia andsubchondral cyst/edema (series 5001 image 11). Moderate osteoarthropathy of 2nd TMTwith subchondral cysts. IMPRESSION 1. Deep ulceration of 5th toe distal phalange exposing the underlyingbone with acute osteomyelitis 5th distal and proximal phalanges. No osteomyelitisof 5th metatarsal 2. Superficial plantar ulceration underneath 1st metatarsal head withno evidence of osteomyelitis of 1st metatarsal. 3. Subcutaneous edema/enhancement surrounding above-mentioned ulcerationsand dorsum foot suggestive of cellulitis. No organized fluid collection orabscess. 4. Midfoot osteoarthropathy. Thank you for letting us participate in the care of this patient. If youare a health care provider and have any questions regarding this report,please contact the number below. For patients who have questions please contactthe health healthcare prof that requested your imaging first. Ramírez Gasca DO IMG MRI ORDERABLES * (ABNORMAL) Sedimentation rate (01/04/2024 3:41 AM EDT) Sedimentation Rate Automated 109(H) 2 - 37 mm/hr 01/04/2024 5:51 AM EDT [facility] Blood VENOUS BLOOD SPECIMEN / Unknown IP Care Team Draw / Unknown 01/04/2024 3:41 AM EDT 01/04/2024 3:46 AM EDT Larisa George MD HEMATOLOGY ORDERABLE S Performing Organization Address City/State/[facility] Co de Phone Number [facility] [place] [address] * JOSÉ MIGUEL, legs, multiple levels (01/04/2024 3:19 AM EDT) VB Text Report Department: Vascular Surgery Lab Patient: [id number] (SINDI RUDOLPH) CPT: 77568 Referring Physician: LARISA GEORGE ?? Phone: Indications: Gangrene 5th digit, right foot; ? PAD Diabetes mellitus: Yes Findings: Right ?Pressure (mm Hg) ?? JOSÉ MIGUEL ??Waveform ?TBI ?? Brachial Artery ?148 ? Common Femoral Artery ?Triphasic ? Popliteal Artery ? Triphasic ? Dorsalis Pedis (Ankle) Artery ?187 ? 1.26 ??Triphasic ? Posterior Tibial (Ankle) Artery ??160 ? 1.08 ??Triphasic ? Great Toe ?119 ?0.80 ?? Left ? Pressure (mm Hg) ?? JOSÉ MIGUEL ??Waveform ? TBI ?? Common Femoral Artery ?Triphasic ? Popliteal Artery ? Triphasic ? Dorsalis Pedis (Ankle) Artery ?169 ? 1.14 ??Biphasic-Rev ? Posterior Tibial (Ankle) Artery ??232 ? 1.57 ??Triphasic ? Great Toe ?126 ? 0.85 ?? Interpretation: RIGHT: No significant lower extremity arterial occlusive disease identifiable at rest. Normal ankle/brachial pressure ratios and ankle Doppler waveforms. LEFT: No significant lower extremity arterial occlusive disease identifiable at rest. Normal ankle/brachial pressure ratios and ankle Doppler waveforms. Comment: The ankle pressures are falsely elevated, most likely due to calcified tibial arteries. Thus, disease severity is based on Doppler waveforms and toe pressures. Comparison: ??No previous study in our vascular lab database for comparison. Electronically Signed by: GERMAN GONZALES on 2024-01-04 11:08:04 AM VASCUBASE VB Text Report End of Report VASCU[facility] 01/04/2024 3:19 AM EDT Ramírez Gasca DO VASCULAR ORDERABLE S VASCUBASE * Film Library- Storage Only DX Foot (01/03/2024 10:10 PM EDT) Only the most recent of2 resultswithin the time period is included. Narrative Dicom, Auditing User - 01/03/2024 10:10 PM EDT This exam is auto-finalizing. It's purpose is for storage only. Bradford Momin MD IM FILM LIBRARY ORD ERABLES * Film Library- Storage Only CT Lower Extremity (12/28/2023 6:37 PM EDT) Narrative RAD - 12/28/2023 6:37 PM EDT This exam is auto-finalizing. It's purpose is for storage only. Bradford Momin MD IMG FILM LIBRARY ORD ERABLES [facility] [place] [place] * Hepatitis C Antibody (02/06/2020 2:48 PM EDT) Hepatitis C Antibody Negative Negative [facility] Blood specimen (specimen) 02/06/2020 2:48 PM EDT 02/06/2020 2:57 PM EDT Narrative Resulting Agency Comment Spec In Lab Young Ramirez Daily CHEMISTRY ORDERABLES Performing Organization Address [facility] Co de Phone Number [facility] [place] [address] * HIV Screen, 4th Generation ([facility]/CGP/APD/NLH) (02/06/2020 2:48 PM EDT) Pathologist [facility] HIV Ab/Ag Screen Negative Negative [facility] [...] Ramirez Daily CHEMISTRY ORDERABLES Performing Organization Address [facility] Co de Phone Number [facility] [place] [address] * (ABNORMAL) Hemoglobin A1c (02/06/2020 2:48 PM EDT) [facility] Hemoglobin A1c 10.0(H) 4.3 - 5.6 [...] Mellitus, Diabetes Care 2013; 36: Suppl. 1, L57-78 Estimated Average Glucose 239 mg/dL [facility] [...] into estimated average glucose values. ??Diabetes Care 2008:31(8):4654-7011. Blood specimen (specimen) 02/06/2020 2:48 PM EDT 02/06/2020 2:57 PM EDT Narrative Resulting Agency Comment Spec In Lab Young Coronado MD CHEMISTRY ORDERABLES [facility] [place] [address] from Last 3 Months or Most Recently Relevant to Health Maintenance Advance Directives Documents on File Type Date Recorded Patient Narrative Writer Expl anation Advance Directives and Luz giraldo Will 06/12/2018 12:10 PM 06/08/2018 * Attempt Cardiopulmonary Resuscitation - Inpatient (Latest Code Status on File) Date Activated Date Inactivated Comments 01/04/2024 4:40 AM 01/09/2024 8:02 PM Question Answer Comments Code Status decision made by: Patient Content of discussion: code status * Attempt Cardiopulmonary Resuscitation - Inpatient Date Activated Date Inactivated Comments 01/25/2022 7:01 [...] Agents on File Name Relationship Healthcare Agent Relationshi p Communication Adriana Lopez Sibling First Alternate Health Care Agent Iva Blue Sibling Second Alternate Health Care Agent Care Teams Cattle Manager Relationship Specialty Start Date End Date None None PCP - General 01/30/24
--- OUTSIDE RECORDS SUMMARY | 2024-02-24 16:56 | XMS_ITS | Encounter Summary ---
[place] [address] Care Team Providers Care Appraisal Specialist Name Role Phone None Primary Care Provider Unavailabl e Reason for Visit * Reason Comments Post Op WOUND CHECK 01/04/24 ([place]) RIGHT 5th toe amp at TMT joint, osteomyelitis * Surgical (Urgent) - Closed Specialty Diagnoses / Procedures Referred By Puneet t Referred To Contact Orthopaedics Diagnoses Acute hematogenous osteomyelitis of right foot [place] [address] [facility] [address] [place] [phone] Referral ID Status Reason Start Date Expiration Date V isits Requested Visits Authorized [id number] Closed Consult, Test & Treat 01/09/2024 01/08/2025 1 1 Encounter Details Date Type Department Care Team (Latest Contact Info) Description 01/30/2024 2:30 PM EDT Office [place] [address] Faye Stanton PA [facility] [place] [address] Acute hematogenous osteomyelitis of right foot Social History Tobacco Use Types Packs/Day Years Used Date Smoking Tobacco: Former Smokeless Tobacco: Never Comments:quit in his 20's Alcohol Use Standard Drinks/Week Comments No 0 (1 standard drink = 0.6 oz pur e alcohol) [facility] Utilities Answer Date Recorded In the past 12 months has th e electric, gas, oil, or water [employer] threatened to shut off services in your [...] any time in the past 12 m [facility], were you homeless or living in a long-term (including now)? No 01/06/2024 DH IPV Inpatient [...] Sign Reading Time Taken Comments Blood Pressure - - Pulse - - Temperature - - Respiratory Rate - - Oxygen Saturation - - Inhaled Oxygen Concentration - - Weight 99.8 kg (220 lb) 01/30/2024 1:59 PM EDT Height 162.6 cm (5' 4) 01/30/2024 1:59 PM EDT Body Mass Index 37.76 01/30/2024 1:59 PM EDT documented in this encounter Progress Notes * Faye Valle PA - 01/30/2024 2:30 PM EDT Images from the original note were not included. PATIENT NAME: Maurice Rudolph AGE: 63 y.o. MR#: [id number] DATE OF VISIT: 01/30/2024 CHIEF COMPLAINT: 4 week Hospital check post NXR WOUND CHECK 01/04/24 ([place]) RIGHT 5th toe amp at TMT joint, osteomyelitis HISTORY OF PRESENT ILLNESS: Mr. Rudolph is a 63 y.o. male who comes into clinic today for evaluation of the RIGHT foot. . History of GERD, DM2 with ESRD, obesity. Maurice Rudolph has been doing well since surgery. He has been WB in a in the forfoot offloader however it hurts. The pt denies fever, chills, drenching night sweats, calf pain or tightness. He has been managing pain with nothing mostly. Occasionally takes a tylenol. Maurice Rudolph is taking 325 ASA daily for DVT/PE prophylaxis. Past medical history: Patient Active Problem List Diagnosis Date Noted Osteomyelitis 5th toe R, s/p partial 5th ray resection Gaby 01/04/24 01/04/2024 ESRD on dialysis 06/11/2020 Closed fracture of right proximal humerus 07/30/2019 Closed nondisplaced fracture of shaft of right clavicle 07/30/2019 Right scapula fracture 07/30/2019 Fall 07/30/2019 Pre-transplant evaluation for ESRD (end stage renal disease) 06/20/2018 Class 2 severe obesity due to excess calories with serious comorbidity and body mass index (BMI) of39.0 to 39.9 in adult 06/08/2018 Pseudophakia of both eyes 10/03/2013 PCO (posterior capsular opacification) 10/03/2013 Eye pain 02/19/2013 Ocular hypertension of right eye. Postop 01/09/2013 Ischemic diabetic maculopathy 11/06/2012 Type 2 diabetes mellitus with ESRD (end-stage renal disease) 11/06/2012 Hyperopia 05/03/2012 Acute angle-closure glaucoma of right eye 04/06/2012 HTN (hypertension) 04/03/2012 GERD (gastroesophageal reflux disease) 04/03/2012 Proliferative diabetic retinopathy, both eyes 06/15/2011 Medications: sevelamer carbonate (Renvela) 800 mg tablet ceFEPime (Maxipime) 1 gram injection solution amLODIPine (Norvasc) 10 mg tablet Trulicity 0.75 mg/0.5 mL Pen Injector OneTouch Verio Flex meter Misc NovoLOG Flexpen U-100 Insulin Insulin Pen Basaglar KwikPen U-100 Insulin 100 unit/mL (3 mL) pen insulin needles, disposable, 31 gauge x 3/16 Needle epoetin babs-epbx (Retacrit) 10,000 unit/mL Solution melatonin 3 mg Tablet aspirin 325 mg Tablet blood sugar diagnostic strips Strip losartan (COZAAR) 50 mg Tablet bumetanide (BUMEX) 1 mg Tablet B Complex-Vitamin C-Folic Acid (NEPHROCAP) 1 mg Capsule gabapentin (NEURONTIN) 300 mg capsule sertraline (ZOLOFT) 25 mg tablet Allergies: Allergies Allergen Reactions Mirtazapine Other reaction(s): Other (see comments) Agitation, Nightmares. Social history: Social History Tobacco Use Smoking status: Former Smokeless tobacco: Never Tobacco comments: quit in his 20's Substance Use Topics Alcohol use: No Review of systems: No chest pain or shortness of breath No fevers, night sweats or chills Physical exam: Mr. Rudolph is a 63 y.o. male who is alert and oriented. He is in no acute discomfort and is resting comfortably in the exam room. Eschar in place over incision No briana-incisional erythema noted No bogginess or drainage to palpation about the incision Skin feels no warmer than surrounding tissue I am not able to part the skin with gentle palpation Calf is supple and non tender Decreased sensation at baseline. Plantar ulcer Assessment : 63 y.o. year-old male now roughly 4 week Hospital check post NXR WOUND CHECK 01/04/24 ([place]) RIGHT 5th toe amp at TMT joint, osteomyelitis PLAN: We had a long discussion regarding the nature of Maurice A Rudolph's healing. -Sutures/luis were removed today in clinic. The pt handled this well. Steri strips need to remain in place for at least one week. Showers are ok, however please do not submerge the incision until the scabs have been replaced by scars. - Wound care: gauze and tape over the wound to be changed daily or as needed. Mepilex border on plantar ulcer until wound care comes. They can continue dressing as previously indicated. -WB status post op: WB in forefoot offloader until completley scarred over. -PT referral: none today -Pain management OTC pain medication -Continue with 325 ASA daily for DVT/PE prophylaxis This plan was discussed with the patient and they are in agreement. All of the patient's questions were answered. The patient understand to contact us if they have any other questions or concerns. FU: 2 weeks for wound check. Double book on my schedule. Faye Valle PA-C The above dictation was made with voice recogonition software * Margaret Schroeder - 01/30/2024 2:30 PM EDT Patient identification was verified using two identifiers and consent was obtained. yes Patient verbalized understanding of procedure: yes The incision area was cleaned and prepped using sterile antiseptic swab. yes Sterile gauze was placed next to suture line to act as a receptacle for removed luis.yes All sutures were removed by gently pulling the knot away from the skin and cutting the sutures as close to the skin as possible. yes Incision was inspected and cleaned with a sterile, antiseptic swab. yes Wound closure strips were applied to maintain contact between wound edges. yes Patient tolerated procedure well. yes Patient instructed on care of incision. yes Additional patient questions for provider: Additional comments: documented in this encounter Plan of Treatment Scheduled Referrals Name Type Priority Associated Diagnoses Orde r Schedule Referral to Orthopaedics Outpatient Referral Urgent Acute hematogenous osteomyelitis of right foot Ordered: 01/09/2024 documented as of this encounter Visit Diagnoses Diagnosis Acute hematogenous osteomyelitis of right foot documented in this encounter Care Teams Appraisal Specialist Relationship Specialty Start Date End Date None None PCP - General 01/30/24 documented as of this encounter
--- OUTSIDE RECORDS SUMMARY | 2024-02-24 16:57 | XMS_ITS | Encounter Summary ---
Author Organization [facility] [place] [address] Care Team Providers Care Business Info Consultant Name Role Phone Kimani Leger MD Primary Care Provider [phone] Encounter Details Date Type Department Care Team (Late st Contact Info) Description 12/28/2023 6:45 PM EDT Ancillary Procedure Radiology Library at [facility] [place] [address] Bradford Momin MD [facility] [place]ASC[place] [address] Social History Tobacco Use Types Packs/Day Years [...] Lower Extremity (12/28/2023 6:37 PM EDT) Narrative TROY - 12/28/2023 6:37 PM EDT This exam is auto-finalizing. It's purpose is for storage only. Bradford Momin MD IMG FILM LIBRARY ORD ERABLES Performing Organization Address City/State/[facility] Co de Phone Number [place], [place] documented in this encounter Visit Diagnoses Not on filedocumented in this encounter Care Teams Business Info Consultant Relationship Specialty Start Date End Date Kimani Leger MD PCP - General Family Medicine 02/10/21 01/29/24 documented as of this encounter
--- OUTSIDE RECORDS SUMMARY | 2024-02-24 16:57 | XMS_ITS | Encounter Summary ---
[place] [address] Care Team Providers Care Clockmaker Name Role Phone Kimani Leger MD Primary Care Provider [phone] Encounter Details Date Type Department Care Team (Latest Contact Info) Description 01/04/2024 Travel Social History Tobacco Use Types Packs/Day Years Used Date Smoking Tobacco: Former Smokeless Tobacco: Never Comments:quit in his 20's Alcohol Use Standard Drinks/Week Comments No 0 (1 standard drink = 0.6 oz pur e alcohol) IPV Inpatient Questions Answer Date Recorded Does [...] on filedocumented in this encounter Care Teams Clockmaker Relationship Specialty Start Date End Date Kimani Leger MD PCP - General Family Medicine 02/10/21 01/29/24 documented as of this encounter
--- OUTSIDE RECORDS SUMMARY | 2024-02-24 16:57 | XMS_ITS | Encounter Summary ---
[place] [address] Care Team Providers Care Wellness Coordinator Name Role Phone Kimani Leger MD Primary Care Provider [phone] Encounter Details Date Type Department Care Team (Late st Contact Info) Description 01/03/2024 Telephone [place] [id number] Shreya Moscoso MD [facility] DR VASCULAR SURG[place] [address] Social History Tobacco Use Types Packs/Day Years [...] encounter Miscellaneous Notes * Telephone Encounter - Shreya Moscoso MD - 01/03/2024 5:52 PM EDT Spoke with OSH emergency department who has Maurice Rudolph who is a 63 yo with history of HD dependence and diabetic foot ulcers with known osteo who they are looking to transfer prior to amputation for need for potential revascularization. Unfortunately we have no studies that indicate any large vessel disease and he has palpable pulse per report with no motor changes and known and stable neuropathy. Given this I recommended that he be seen in the ER if able for vascular surgery consult and JOSÉ MIGUEL's but it didn't sound like he has acute limb ischemia or needs urgent revascularization at this time. The OSH was agreeable to this plan. Shreya Moscoso MD Vascular Fellow PGY7 documented in this encounter Plan of Treatment Not on file documented as of this encounter Visit Diagnoses Not on filedocumented in this encounter Care Teams Wellness Coordinator Relationship Specialty Start Date End Date Kimani Leger MD PCP - General Family Medicine 02/10/21 01/29/24 documented as of this encounter
--- OUTSIDE RECORDS SUMMARY | 2024-02-24 16:57 | XMS_ITS | Encounter Summary ---
Author Organization [facility] [place] [address] Care Team Providers Care School Leader Name Role Phone Kimani Leger MD Primary Care Provider Encounter Details Date Type Department Care Team (Late st Contact Info) Description 01/03/2024 10:15 PM EDT Ancillary Procedure Radiology Library at [facility] [place] [address] Social History Tobacco Use Types Packs/Day Years Used Date Smoking Tobacco: Former Smokeless Tobacco: Never Comments:quit in his 20's Alcohol Use Standard Drinks/Week Comments No 0 (1 standard drink = 0.6 oz pur e alcohol) [facility] Inpatient Questions Answer Date Recorded Does Anyone [...] Comments FILM LIBRARY STORAGE ONLY DX FOOT STAT 01/03/2024 10:10 PM EDT documented in this encounter Results * Film Library- Storage Only DX Foot (01/03/2024 10:10 PM EDT) Narrative Dicom, Auditing User - 01/03/2024 10:10 PM EDT This exam is auto-finalizing. It's purpose is for storage only. Bradford Momin MD IMG FILM LIBRARY ORD ERABLES documented in this encounter Visit Diagnoses Not on filedocumented in this encounter Care Teams School Leader Relationship Specialty Start Date End Date Kimani Leger MD PCP - General Family Medicine 02/10/21 01/29/24 documented as of this encounter
--- OUTSIDE RECORDS SUMMARY | 2024-02-24 16:57 | XMS_ITS | Encounter Summary ---
[place] [address] Care Team Providers Care Manager Of Pharmacy Name Role Phone Kimani Leger MD Primary Care Provider [phone] Reason for Referral * Home Health Care (Routine) - Pending Review Specialty Diagnoses / Procedures Referred By Contac t Referred To Contact Diagnoses Acute hematogenous osteomyelitis of right [place] [address] [facility] & [address] [place] [address] Referral ID Status Reason Start Date Expiration Date Visits Requested Visits Authorized [id number] Pending Review Consult, Test & Treat 01/10/2024 07/08/2024 999 999 * Surgical (Urgent) - Closed Specialty Diagnoses / Procedures Referred By Contac t Referred To Contact Orthopaedics Diagnoses Acute hematogenous osteomyelitis of right foot Haja Garner MD [place] [id number] [facility] [address] [place] [address] Referral ID Status Reason Start Date Expiration Date V isits Requested Visits Authorized [id number] Closed Consult, Test & Treat 01/09/2024 01/08/2025 1 1 * Consultation (Routine) - Closed Specialty Diagnoses / Procedures Referred By Contac t Referred To Contact Infectious Diseases Diagnoses Acute hematogenous osteomyelitis of right foot Faby Ferrell MD [facility] [place] [address] Faby Ferrell MD [facility] [place] [address] Referral ID Status Reason Start Date Expiration Date V isits Requested Visits Authorized [id number] Closed Assume Subset of Care 01/09/2024 01/08/2025 1 1 Reason for Visit * Reason Comments Hospital Transfer Foot Pain * Auth/Cert (Routine) Specialty Diagnoses / Procedures Referred By Contac t Referred To Contact Diagnoses Osteomyelitis Gangrene Ramírez Gasca, [place] [address] [facility] Referral ID Status Reason Start Date Expiration Date Visits Re quested Visits Authorized [id number] 1 1 Encounter Details Date Type Department Care Team (Late st Contact Info) Description 01/04/2024 12:41 AM EDT - 01/09/2024 5:57 PM EDT Hospital Encounter Surgical Unit Level 4 [place] [address] Larisa George MD [address] [place] [address] [place] [address] [address] [place], [place] [address] [place] [address] [place] [address] Jesús [place] [address] [place] [address] Gangrene of toe of right foot; Acute hematogenous osteomyelitis of right foot Discharge Disposition: Home with [facility] Social History Tobacco Use Types Packs/Day Years Used Date Smoking Tobacco: Former Smokeless Tobacco: Never Comments:quit in his 20's Alcohol Use Standard Drinks/Week Comments No 0 (1 standard drink = 0.6 oz pur e alcohol) [facility] Utilities Answer Date Recorded In the past 12 months has th e [employer], gas, oil, or water [employer] threatened to shut off services in your [...] any time in the past 12 [facility], were you homeless or living in a halfway (including now)? No 01/06/2024 DH IPV Inpatient [...] - - Weight 99.8 kg (220 lb) 01/04/2024 12:50 AM EDT Height 162.6 cm (5' 4) 01/04/2024 12:50 AM EDT Body Mass Index 37.76 01/04/2024 12:50 AM EDT documented in this encounter Discharge Summaries * Haja Garner MD - 01/05/2024 6:49 PM EDT Images from the original note were not included. Discharge Summary Patient Name: Sindi Rudolph Patient Age: 63 y.o. Language: Trinidadian Race: White Ethnicity: Not nor Admit date: 01/04/2024 Discharge date and time: 01/10/2024 9:32 AM Attending Physician: No att. providers found Discharge Physician: HAJA GARNER MD Follow-up Recommendations for Providers: Orthopedics: assess post-op wound and dressing OPAT: following osteomyelitis Inpatient Provider Contact Information: For questions regarding this document or issues relating to this hospitalization on the Medical Service, please contact your inpatient physician through the [facility] . Issues afterhours and on weekends will be handled by the Hospitalist staff on-call. Discharge Diagnoses (Hospital Problems) and Secondary Diagnoses (Chronic Problems): Active Hospital Problems Diagnosis Osteomyelitis 5th toe R, s/p partial 5th ray resection [place] 01/04/24 Resolved Hospital Problems No resolved problems to display. 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 Patient states that he has an ulcer at the base of the foot for years, however the toe infection is new and has only been there for about 5 days. He says that the wooden box maker was more concerned with the toe than the ulcer. He denies, fevers, chest pain, SOB, or abd pain. In the ED vitals 158/70, HR 86, temperature 97.6 ??F, satting at 99% on 2 L nasal cannula. Hospital Course: # right toe osteo: s/p amputaion, bone cultures grew klesiella, acinetobacter, and MSSA. Started onvanco/zosyn, then vanc stopped with MSSA sensitivity. At discharge switched to Cephipime 2 grams IVpost HD m/w/f by infectious diseases. Expected to run from 01/03 to 02/15/24. #ESRD: nephro consult and received HD Vital Signs at Discharge: BP: 164/81, Heart Rate: 77, Temp: 36.9 ??C (98.4 ??F), Resp: 16, BMI (Calculated): 37.76 Height: 162.6 cm (5' 4) (01/04/2449) Weight: 99.8 kg (220 lb) (01/04/2449) Functional and Cognitive Status: AOx3 Important Studies and Lab Data: Labs: Recent Labs 01/07/24 0501/06/24 0501/05/24 0818 WBC 5.88 5.83 6.56 HGB 10.5* 10.0* 9.8* PLATELET 154 133* 151 Recent Labs 01/07/24 0501/06/24 0511 01/05/24 0818 NA 138 137 135 K 4.6 4.6 6.3* CL 97* 98 95* CO2 25 26 23 BUN 49* 39* 74* CREATININE 9.75* 8.15* 11.45* GLUCOSE 138 118 185 No results for input(s): BILITOT, BILIDIR, ALKPHOS, ALT, AST in the last 7068 hours. No results for input(s): PT, PTT, INR in the last 7068 hours. Recent Labs 01/07/24 0501/06/24 0501/05/24 0818 CALCIUM 8.7 8.4* 8.3* PHOS 7.1* -- -- No results for input(s): TSH in the last 7068 hours. Invalid input(s): [id number] No results for input(s): TROPONINT, CK in the last 7068 hours. No results for input(s): LACTATE, ALBUMIN, CORTISOL, PREALBUMIN in the last 7068 hours. Invalid input(s): [facility] Medicine Attending Daily Progress Note Admit Date: 01/04/2024 Hospital Day 4 days Active Hospital Problems Diagnosis Osteomyelitis 5th toe R, s/p partial 5th ray resection [place] 01/04/24 Resolved Hospital Problems No resolved problems to display. PMH 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) Hyperopia Acute angle-closure glaucoma of right eye HTN (hypertension) GERD (gastroesophageal reflux disease) Proliferative diabetic retinopathy, both eyes Inpatient Medications: Scheduled amLODIPine 10 mg Oral Daily aspirin 325 mg Oral Daily bumetanide 2 mg Oral BID gabapentin 300 mg Oral TID sertraline 50 mg Oral Daily sevelamer carbonate 1,600 mg Oral TID WC sodium chloride 0.9 % (flush) 5 mL Intravenous BID heparin (porcine) 5,000 Units Subcutaneous Q8H [facility] insulin lispro 0-8 Units Subcutaneous TID WC insulin glargine (Lantus;Semglee) (100 unit/mL) subcutaneous injection 30 Units Subcutaneous Daily piperacillin-tazobactam 3.375 g Intravenous Q12H insulin lispro 1-4 Units Subcutaneous TID AC Continuous infusions: PRN: sodium chloride 0.9%, sodium chloride 0.9 % (flush), lidocaine, melatonin, acetaminophen, polyethylene glycoL (MIRALAX) oral powder AND bisacodyL AND bisacodyl EC AND lactulose AND lactulose AND magnesium citrate AND Tap water enema, ondansetron ODT OR ondansetron, glucose 40% oral geL OR dextrose OR glucagon Interval History: Stopped vancomycin as MSSA. Tolerated HD. No f/c, no dizziness / chest pain. Physical Exam Vitals Range last 24 hrs Temperature Temp: [36.9 ??C (98.4 ??F)-37.1 ??C (98.8 ??F)] Heart Rate Heart Rate: -- Blood Pressure BP: (127-154)/(53-70) Respiratory Rate Resp: [18] SpO2 SpO2: [98 %-100 %] Intake/Output Summary (Last 24 hours) at 01/08/2024 1400 Last data filed at 01/08/2024 0800 Gross per 24 hour Intake 220 ml Output -- Net 220 ml Patient Vitals for the past 168 hrs: Weight 01/04/24 0050 99.8 kg (220 lb) Body mass index is 37.76 kg/m??. Physical Exam GEN - awake, alert and oriented times three HEENT - Oropharynx moist without lesions Lungs - cta bilat, good resp effort Heart - RRR, S1,S2, no murmur, gallop or rub Abdomen - nt, nd, normal active bowel sounds, no rebound or guarding Extremities - No clubbing, cyanosis or edema, left foot - dressing clean dry and in place Studies reviewed in eDH. Remarkable for the following: LABS: Last 3 wbc, hgb, hct plt Recent Labs 01/07/24 0511 01/06/24 0511 01/05/24 0818 WBC 5.88 5.83 6.56 HGB 10.5* 10.0* 9.8* HCT 33.7* 31.9* 31.1* PLATELET 154 133* 151 Last 3 Lytes Recent Labs 01/07/24 0511 01/06/24 0511 01/05/24 0818 NA 138 137 135 K 4.6 4.6 6.3* CL 97* 98 95* CO2 25 26 23 BUN 49* 39* 74* CREATININE 9.75* 8.15* 11.45* Last 3 LFTs No results for input(s): AST, ALT, ALKPHOS, BILITOT, BILIDIR in the last 7068hours. FSBG Trend Recent Labs 01/08/24 1210 01/08/24 1142 01/08/24 0739 01/07/24 1958 01/07/24 1719 01/07/24 1154 01/07/24 0748 01/06/24 2247 01/06/24 1635 01/06/24 1138 POCGLU 197 209* 132 184 136 85 128 138 174 145 MICRO: No results for input(s): URINECULTURE in the last 720 hours. Recent Labs 01/04/24 1551 GRAMSTAIN Few neutrophils No microorganisms seen No results for input(s): BLOODCX in the last 720 hours. ECG: No results for input(s): DIAGLINE, QTCCALC in the last 720 hours. VASCULAR: Recent Labs 01/04/24 0319 VBTEXTRPT Department: Vascular Surgery Lab Patient: [id number] (SINDI RUDOLPH) CPT: 75536 Referring Physician: LARISA GEORGE Phone: Indications: Gangrene 5th digit, right foot; ? PAD Diabetes mellitus: Yes Findings: Right Pressure (mm Hg) JOSÉ MIGUEL Waveform TBI Brachial Artery 148 Common Femoral Artery Triphasic Popliteal Artery Triphasic Dorsalis Pedis (Ankle) Artery 187 1.26 Triphasic Posterior Tibial (Ankle) Artery 160 1.08 Triphasic Great Toe 119 0.80 Left Pressure (mm Hg) JOSÉ MIGUEL Waveform TBI Common Femoral Artery Triphasic Popliteal Artery Triphasic Dorsalis Pedis (Ankle) Artery 169 1.14 Biphasic-Rev Posterior Tibial (Ankle) Artery 232 1.57 Triphasic Great Toe 126 0.85 Interpretation: RIGHT: No significant lower extremity arterial [...] on Doppler waveforms and toe pressures. Comparison: No previous study in our vascular lab database for comparison. Electronically Signed by: GERMAN GONZALES on 2024-01-04 11:08:04 AM End of Report IMAGING: Results for orders placed or performed during the hospital encounter of 01/04/24 MRI Foot wwo Contrast Right (Exam End: 01/04/2024 5:40 AM) Result Value WORKSTATION ID [id number] Impression 1. Deep ulceration of 5th toe distal phalange exposing the underlying bone with acute osteomyelitis 5th distal and proximal phalanges. No osteomyelitis of 5th metatarsal 2. Superficial plantar ulceration underneath 1st metatarsal head with no evidence of osteomyelitis of 1st metatarsal. 3. Subcutaneous edema/enhancement surrounding above-mentioned ulcerations and dorsum foot suggestive of cellulitis. No organized fluid collection or abscess. 4. Midfoot osteoarthropathy. Thank you for letting us participate in the care of this patient. If you are a health care provider and have any questions regarding this report, please contact the number below. For patients who have questions please contact the health care companion that requested your imaging first. Electronically signed by: Caden Kemp MD, [facility] ([phone]), at 01/04/2024 8:31 AM XR Foot Min 3 views Right (Generic) (Exam End: 01/04/2024 3:55 AM) Result Value WORKSTATION ID [id number] Impression FINDINGS/IMPRESSION: * Mild osteolytic appearance of the tuft of the fifth digit distal phalanx, could be sequela of osteomyelitis in appropriate clinical setting (as clinically warranted, could consider MRI evaluation barring contraindication). * Moderately advanced osteoarthropathy involving the midfoot, predominantly medially. Arteriovascular calcifications. Please note, this examination was ordered, performed, and interpreted in a STAT/emergency setting. Thank you for letting us participate in the care of this patient. If you are a health care provider and have any questions regarding this report, please contact the number below. For patients who have questions please contact the health care companion that requested your imaging first. Electronically signed by: Huang Hernandez MD, [facility] ([phone]), at 01/04/2024 4:33 AM XR Foot Min 3 views Right (Generic) (Exam End: 01/04/2024 7:42 PM) Result Value WORKSTATION ID [id number] Impression 1. Interval partial fifth ray resection. Exam to serve as baseline for future comparison. 2. No acute osseous abnormality. Thank you for letting us participate in the care of this patient. If you are a health care provider and have any questions regarding this report, please contact the number below. For patients who have questions please contact the health care companion that requested your imaging first. Electronically signed by: Aaron Charles MD, [facility] ([phone]), at 01/05/2024 2:34 AM Studies: Procedure Component Value Units Date/Time Bone Culture, Aerobic & Anaerobic [[id number]] (Abnormal) Collected: 01/04/24 1551 Lab Status: Final result Specimen: Bone from Toe(s), Right Foot Updated: 01/08/24 1353 Narrative: The following orders were created for panel order Bone Culture, Aerobic & Anaerobic. Procedure Abnormality Status --------- ------ Bone Culture[[id number]] Abnormal Final result Anaerobic Culture[[id number]] Final result Please view results for these tests on the individual orders. Bone Culture [[id number]] (Abnormal) Collected: 01/04/24 1551 Lab Status: Final result Specimen: Bone from Toe(s), Right Foot Updated: 01/08/24 0931 Bone Culture Rare Klebsiella oxytoca Abnormal Rare Acinetobacter species Abnormal Rare Staphylococcus aureus Abnormal Gram Stain Few neutrophils No microorganisms seen Susceptibility Klebsiella oxytoca Acinetobacter species Staphylococcus aureus VITEK 2 METHOD VITEK 2 METHOD VITEK 2 METHOD Amikacin Susceptible Ampicillin Resistant Ampicillin + Sulbactam Susceptible Susceptible Cefazolin (Systemic) Resistant Cefepime Susceptible Susceptible Ceftazidime Susceptible Ceftriaxone Susceptible Ciprofloxacin Susceptible Susceptible Clindamycin Susceptible Gentamicin Susceptible Susceptible 1 Levofloxacin Susceptible Susceptible Susceptible Linezolid Susceptible Meropenem Susceptible Oxacillin Susceptible 2 Piperacillin/Tazobactam Susceptible Tetracycline Susceptible 3 Trimethoprim/Sulfa Susceptible Susceptible Susceptible Vancomycin Susceptible 1 Gentamicin is not appropriate for monotherapy for gram-positive infections. 2 Oxacillin (methicillin) susceptibility is a surrogate for the oral and parenteral cephalosporins,beta-lactam combination agents (amoxicillin- clavulanate, ampicillin-sulbactam and piperacillin-tazobactam) and carbapenem agents. It is NOT a surrogate for penicillin, ampicillin or piperacillin susce ptibility. 3 Based on tetracycline susceptibility, this organism is considered susceptible to doxycycline. Pending Studies and Lab Data: None Results for orders placed or performed during the hospital encounter of 01/04/24 MRI Foot wwo Contrast Right (Exam End: 01/04/2024 5:40 AM) Result Value WORKSTATION ID [id number] Impression 1. Deep ulceration of 5th toe distal phalange exposing the underlying bone with acute osteomyelitis 5th distal and proximal phalanges. No osteomyelitis of 5th metatarsal 2. Superficial plantar ulceration underneath 1st metatarsal head with no evidence of osteomyelitis of 1st metatarsal. 3. Subcutaneous edema/enhancement surrounding above-mentioned ulcerations and dorsum foot suggestive of cellulitis. No organized fluid collection or abscess. 4. Midfoot osteoarthropathy. Thank you for letting us participate in the care of this patient. If you are a health care provider and have any questions regarding this report, please contact the number below. For patients who have questions please contact the health care companion that requested your imaging first. Electronically signed by: Caden Kemp MD, [facility] ([phone]), at 01/04/2024 8:31 AM XR Foot Min 3 views Right (Generic) (Exam End: 01/04/2024 3:55 AM) Result Value WORKSTATION ID [id number] Impression FINDINGS/IMPRESSION: * Mild osteolytic appearance of the tuft of the fifth digit distal phalanx, could be sequela of osteomyelitis in appropriate clinical setting (as clinically warranted, could consider MRI evaluation barring contraindication). * Moderately advanced osteoarthropathy involving the midfoot, predominantly medially. Arteriovascular calcifications. Please note, this examination was ordered, performed, and interpreted in a STAT/emergency setting. Thank you for letting us participate in the care of this patient. If you are a health care provider and have any questions regarding this report, please contact the number below. For patients who have questions please contact the health care companion that requested your imaging first. Electronically signed by: Huang Hernandez MD, [facility] ([phone]), at 01/04/2024 4:33 AM XR Foot Min 3 views Right (Generic) (Exam End: 01/04/2024 7:42 PM) Result Value WORKSTATION ID [id number] Impression 1. Interval partial fifth ray resection. Exam to serve as baseline for future comparison. 2. No acute osseous abnormality. Thank you for letting us participate in the care of this patient. If you are a health care provider and have any questions regarding this report, please contact the number below. For patients who have questions please contact the health care companion that requested your imaging first. Electronically signed by: Aaron Charles MD, [facility] ([phone]), at 01/05/2024 2:34 AM Discharge Conditions/Prognosis: osteomyelitis / good Discharge to: home with hemodialysis in [place] and OPAT follow up Updated Allergies/ADRs: Allergies Allergen Reactions Mirtazapine Other reaction(s): Other (see comments) Agitation, Nightmares. Immunizations Given this Hospitalization: Immunization History Administered Date(s) Administered Moderna Covid-19 Monovalent 12Yr+ ([employer] 100mcg) 07/28/2020, 08/25/2020, 03/12/2021 Pneumococcal Polysaccharide (Pneumovax 23) 05/23/2006 Discharge Medications: Your Medications New Medications Dose Details ceFEPime 1 gram injection solution Commonly known as: Maxipime Inject 2,000 mg into the vein three times a week (Mon, Weds, Fri) for 37 days. 2 g Refills: 0 Continued medications, unchanged Dose Details amLODIPine 10 mg tablet Commonly known as: Norvasc Take 1 tablet by mouth daily. 10 mg Quantity: 30 tablet Refills: 11 aspirin 325 mg tablet Take 1 tablet by mouth daily. 325 mg Quantity: 90 tablet Refills: 3 blood sugar diagnostic strips Strip Use to check blood sugar 3 times daily Quantity: 200 each Refills: 11 bumetanide 1 mg tablet Commonly known as: Bumex Take 2 mg by mouth 2 times daily. 2 mg Refills: 0 epoetin babs-epbx 10,000 unit/mL Solution Commonly known as: Retacrit Inject 1 mL subcutaneously once as needed in Dialysis. 10,000 Units Quantity: 1 mL Refills: 0 gabapentin 300 mg capsule Commonly known as: Neurontin Take 300 mg by mouth 3 times daily. 300 mg Refills: 0 Insulin Basaglar KwikPen U-100 100 unit/mL (3 mL) pen Inject 20 Units subcutaneously daily. ICD 10 Code: E11.65 Generic drug: insulin glargine 20 Units Quantity: 15 mL Refills: 5 insulin needles (disposable) 31 gauge x 3/16 Needle Inject 1 each subcutaneously 4 times daily. ICD 10 Code: E11.65 1 each Quantity: 150 each Refills: 5 losartan 50 mg tablet Commonly known as: Cozaar Take 50 mg by mouth daily. 50 mg Refills: 0 melatonin 3 mg tablet Take 2 tablets by mouth nightly. 6 mg Refills: 0 NovoLOG Flexpen U-100 Insulin 100 unit/mL (3 mL) Insulin Pen Inject 6 Units subcutaneously 3 times daily (with meals). ICD 10 Code: E11.65 Generic drug: insulin aspart U-100 6 Units Quantity: 15 mL Refills: 5 OneTouch Verio Flex meter Misc TEST BLOOD GLUCOSE THREE TIMES A DAY Generic drug: Blood-Glucose Meter Refills: 0 sertraline 25 mg tablet Commonly known as: Zoloft Take 50 mg by mouth daily. 50 mg Refills: 0 sevelamer carbonate 800 mg tablet Commonly known as: Renvela Take 1 tablet by mouth 3 times daily (with meals). 800 mg Refills: 0 Trulicity 0.75 mg/0.5 mL Pen Injector Generic drug: dulaglutide Refills: 0 Vitamin B Complex-Vitamin C-Folic Acid 1 mg Capsule Commonly known as: Nephrocap Take 1 capsule by mouth daily. 1 capsule Refills: 0 Smoking Status at Discharge: Social History Tobacco Use Smoking Status Former Smokeless Tobacco Never Tobacco Comments quit in his 20's Instructions Given to Patient at Discharge: Patient Instructions Orthopaedic Surgery Discharge Instructions Activity: Your weight-bearing status is - weight bearing as tolerated of the right lower extremity in a forefoot offloading shoe whenever weight bearing. OK to take shoe off when not out of bed and ambulating. Anticoagulation: none Diet: Resume your usual diet but increase your intake of fluids and fiber while you are on narcoticpain meds to prevent constipation. Driving: None until you are cleared to do so by your Orthopedic surgeon. You should not drive whileyou are on narcotic pain meds as they can affect your judgment and reaction time. Call your surgeonwith any questions/concerns. Ice and elevation Some swelling is expected after surgery. Ice and elevation are the best remedies to reduce swellingand pain. Keep your operative extremity properly elevated above the level of the heart You may use pillows to increase elevation. Intermittently apply ice to the outside of the dressing for 20 minutes 6-8 times a day. You will want to ice and elevate for 5-7 days after surgery or as long as it hurts. Dressing / Wound: Your incision was closed with sutures or luis. These will be removed at your orthopaedic follow up appointment. Please keep the sutures or luis covered with soft sterile dressing until removal. Misc: Remember that ICE and elevation are very important after surgery to help decrease swelling and control pain. Use ICE for 20-30 minutes at a time and keep your leg elevated as much as possible. Call your doctor ([phone]) if you develop: Fever greater than 100.5 Severe nausea or vomiting Increasing pain that is not controlled by pain medications Increasing redness, swelling, or drainage from incisions Change in sensation FOLLOW-UP APPOINTMENTS: 1. You will have follow-up appointments at [facility] as indicated below in Future Appointment and Orders. 2. You will need to have x-rays prior to your follow-up appointment listed below. Please come to Radiology, desk 3T, 1 hour BEFORE that appointment for these x-rays. No future appointments. If you have questions or concerns: Tuesday through Tuesday, 8 AM - 5 PM, please call Dr. Jennie Curiel MD's office at . If it is after 5 PM, the weekend, or holidays, please call and ask to speak with theOrthopedic resident on-call. General Instructions None Future Appointments and Orders Future Appointments and Orders Future Appointments Provider Department Dept Phone 01/27/2024 3:30 PM Faye Valle PA Orthopaedics at [facility] Arrive at: Personal Shopper Area 3C [phone] 01/30/2024 10:00 AM Hafsa Bhatti APRN Infectious Disease at [facility] Arrive at: Home [phone] To view instructions for your video visit, click here, or visit this website: [email or web address] If you have not previously downloaded the [facility] patient portal software, [employer], please do so by clicking one of the links below or searching in your device's lesa store. [employer] devices 02/13/2024 1:00 PM Sue Ramirez MD Infectious Disease at [facility] Arrive at: Personal Shopper Area 5C [phone] Future Orders Complete By Expires OPAT: Order / Recommendation for Post Discharge IV Antibiotic Management [KVC022 CPT(R)] As directed Process Instructions: If no progress note charted, please enter Clinical details in comments. Scheduling Instructions: Comments: - If this order was signed greater than 72 hours prior to [facility] discharge, please call to confirm the accuracy of this order. Please Fax all results to: OPAT Program Infectious Disease Section [facility], [place] [address] FAX: - After hours, please contact the Infectious Disease Physician electronics computer mechanic at . - Line care instructions - see flush/heparin orders. Facilities may follow organizational policies/practices regarding heparin. - correction for medication administration/children's lunchroom supervisor and catheter care/maintenance authorized. HD Line care instructions per HD facility protocol [facility] for Medication Administration/Hookup and catheter care/maintenance: - Teach Patient/Caregiver goals/self-monitoring/therapy administration to independence per the Nursing Care Plan. - correction visit frequency; initial, weekly and 2 PRN visits for complications and/or issueswith therapy for the duration of therapy. - Insert/maintain/replace/remove vascular access device as needed when clinically appropriate and per the Nursing Care Plan. ( PIV: qauqe) - Change VAD dressing, extension set and needleless connector weekly and 2 PRN visits for complications and/or issues with therapy for the duration of therapy. Disinfect site with CHG or Betadine/alcohol, may use antimicrobial patch to site routinely or as needed. - If ordered, may draw labs via Central line or peripherally and flushed per orders. Questions: ID Diagnosis: Osteomyelitis Microorganisms being treated: Klebsiella species, acinetobacter species and MSSA Special Instructions: Antibiotic: Cefepime 2G POST HD Three times per week Start date: 01/04/2024 Anticipated stop date: 02/15/2024 Labs: Q Tuesday: CBC/Diff, CMP Q Tuesday Inflammatory CRP Attending Responsible for IV Antimicrobials: Other Other Provider: Faby Ferrell MD Referral to Home Health [REF34 Custom] As directed Process Instructions: If no progress note charted, please enter Clinical details in comments. Scheduling Instructions: Comments: Please evaluate Sindi Rudolph for admission to Home Health. [address] [place] [phone] (home) Date of : 1960 Inpatient DOCUMENTATION FOR VNA SERVICES (INCLUDING THOSE PATIENTS WITH MEDICARE COVERAGE REQUIRING HOME VNA SERVICES AND/OR HOSPICE SERVICES) PATIENT'S LOCATION: Sindi Rudolph [address] [place] [phone] (home) Cell: Telephone Information: Supervisor Mending's Name: . In discussion with the attending physician, it is certified that this patient is under their care and that they, or a Nurse Practitioner, Clinical Nurse specialist or Physician Heel Seat Trimmer who is working directly with them, had a face to face encounter that meets the physician face to face encounter requirements with this patient on 01/09/2024(MD please enter DC date here) The encounter with the patient was in whole, or in part, for the following medical condition, whichis the primary reason for home health care services: foot osteomyelitis requiring IV antibiotics In discussion with the provider, it is certified that, based on their findings, the following services are medically necessary for home health services. To provide the following care/treatments with the clinical findings supporting the need for services as follows: HOME CARE ORDERS: RN ORDERS: Assess vital signs, cardiopulmonary status, nutrition, hydration, elimination -Additional Orders: Monitor medication effectiveness and management and Assess wound or incision (please add detailed wound care instructions here: n/a) PT ORDERS: Continue rehab for endurance, gait stability and strength with mobility and transfers. Home safety evaluation. Home exercise program if appropriate. OT ORDERS: Assess and continue rehab for managing ADLs. HOME HEALTH CARE AGENCY: [facility] [address] [place] [id number] START OF CARE: within 24-48 hours of discharge or provided SOC by the Agency In discussion with the attending physician, it is certified that the clinical findings support thatthis patient is homebound because absences from home require considerable and taxing effort due to:Unsteady gait, poor balance, requiring assistive devices and/or assistance of another. Please note that any additional orders needs or changes will need to be obtained from this patient's PCP: Kimani Leger MD [address] / [facility] [phone] . All A agencies which cover the area of patient's residence have been reviewed, either verbally or in writing, and patient/family have chosen the home health care agency noted. Questions: Disciplines Requested: Nursing Physical Therapy Occupational Therapy Referral to Orthopaedics [REF62 Custom] As directed Process Instructions: If no progress note charted, please enter Clinical details in comments. Scheduling Instructions: Comments: Patient needs an ortho post-op follow up - this should have been done by the ortho team as they left instructions in their progress notes that they would see in follow up and care for his wound / bandage and order Xrays. Questions: My question or request is: See comment Recurring Lab Work Interval Expires CBC (with Diff) [JIF998 Custom] Once a week until 03/10/2024 03/10/2024 Process Instructions: Scheduling Instructions: Comments: Questions: Comprehensive metabolic panel Non-fasting [LAB17 Custom] Once a week until 03/10/2024 03/10/2024 Process Instructions: Scheduling Instructions: Comments: Questions: Fasting required?: Non-fasting CRP, acute inflammation [[id number] Custom] Once a week until 03/10/2024 03/10/2024 Process Instructions: Scheduling Instructions: Comments: Questions: Discharge References/Attachments None documented in this encounter Discharge Instructions * Patient Instructions* Haja Garner MD - 01/04/2024 4:57 PM EDT Orthopaedic Surgery Discharge Instructions Activity: Your weight-bearing status is - weight bearing as tolerated of the right lower extremity in a forefoot offloading shoe whenever weight bearing. OK to take shoe off when not out of bed and ambulating. Anticoagulation: none Diet: Resume your usual diet but increase your intake of fluids and fiber while you are on narcoticpain meds to prevent constipation. Driving: None until you are cleared to do so by your Orthopedic surgeon. You should not drive whileyou are on narcotic pain meds as they can affect your judgment and reaction time. Call your surgeonwith any questions/concerns. Ice and elevation Some swelling is expected after surgery. Ice and elevation are the best remedies to reduce swellingand pain. Keep your operative extremity properly elevated above the level of the heart You may use pillows to increase elevation. Intermittently apply ice to the outside of the dressing for 20 minutes 6-8 times a day. You will want to ice and elevate for 5-7 days after surgery or as long as it hurts. Dressing / Wound: Your incision was closed with sutures or luis. These will be removed at your orthopaedic follow up appointment. Please keep the sutures or luis covered with soft sterile dressing until removal. Misc: Remember that ICE and elevation are very important after surgery to help decrease swelling and control pain. Use ICE for 20-30 minutes at a time and keep your leg elevated as much as possible. Call your doctor ([phone]) if you develop: Fever greater than 100.5 Severe nausea or vomiting Increasing pain that is not controlled by pain medications Increasing redness, swelling, or drainage from incisions Change in sensation FOLLOW-UP APPOINTMENTS: 1. You will have follow-up appointments at [facility] as indicated below in Future Appointment and Orders. 2. You will need to have x-rays prior to your follow-up appointment listed below. Please come to Radiology, desk 3T, 1 hour BEFORE that appointment for these x-rays. No future appointments. If you have questions or concerns: Tuesday through Tuesday, 8 AM - 5 PM, please call Dr. Jennie Curiel MD's office at . If it is after 5 PM, the weekend, or holidays, please call and ask to speak with theOrthopedic resident on-call. documented in this encounter Medications at Time of Discharge Medication Sig Dispensed Refills Start Date End Date amLODIPine (Norvasc) 10 mg tablet Take 1 tablet by mouth daily. 30 tablet 11 02/25/2023 02/25/2024 Trulicity 0.75 mg/0.5 mL Pen Injector 06/02/2021 [...] Take 2 tablets by mouth nightly. 08/04/2019 aspirin 325 mg Tablet Take 1 [...] tablet Take 50 mg by mouth daily. ceFEPime (Maxipime) 1 gram injection solution Inject 2,000 mg into the vein three times a week (Tue, Wed, Tue) for 37 days. 01/09/2024 02/15/2024 sevelamer carbonate (Renvela) 800 mg Tablet Take 1 tablet by mouth 3 times daily (with meals). 08/04/2019 01/13/2024 documented as of this encounter Progress Notes * Frederick Grey - 01/09/2024 5:57 PM EDT Office of Care Management/Warehouse Order Puller Name: Sindi Rudolph Presenting Issue: Outpatient Dialysis Update Notified [facility] HD unit that patient is scheduled for discharge soon. The dialysis unit is ready for the patient on Tuesday, December 11trh. The patient will have a schedule of Tuesday, Tuesday and Tuesday at 0700. Plan: Discharge Summary and last acute dialysis records will be faxed to the case filler upon discharge. This office will be available to the patient, Wire Taper-RN and Nursing Clerk for further assistance. Dialysis Unit Address: [facility] Basic Information Address: [address] [place] [address] DR RODRIGUEZ, [address] Frederick Grey Warehouse Order Puller * Haja Garner MD - 01/09/2024 4:49 PM EDT Hospital Medicine - Attending Day of Discharge Documentation Discharge diagnosis Active Hospital Problems Diagnosis Osteomyelitis 5th toe R, s/p partial 5th ray resection [place] 01/04/24 Resolved Hospital Problems No resolved problems to display. Secondary Issues 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 Select the appropriate statement that describes your involvement and care and omit the other: I spent >30 minutes (Day of Discharge Code 16662) involved in the final examination of the patient, discussion of the hospital stay, instructions for continuing care to all relevant caregivers, and preparation of discharge records, prescriptions and referral forms. Plans Discharge to home Follow-up scheduled with HD and ortho and OPAT Please see the Discharge Summary for complete details of any medication changes and additional plans. * Tali Ferro RN - 01/09/2024 3:02 PM EDT Infectious Disease/OPAT Program Teaching Visit/HD Met with patient at bedside to discuss discharge on IV ABX. Patient given and reviewed OPAT order. Reviewed roles and responsibilities of nursing staff at HD including HD cath care and weekly labs. Contact information for ID team given to patient. Discussed follow-up appointments in ID 5C clinic, telephone and tele health. Patient verbalized understanding. All questions answered. IV & PO ABX Medications: Cefepime 2G IV post HD Mon, Wed, Fri Start/anticipated end date: 01/04/24-02/15/24 HD Suite: [place], [place] IV Access: AV Fistula Placed: Plan: discharge on OPAT program when medically ready F/u: Weekly labs CRP CBC/diff CMP * Shira Seth APRN - 01/09/2024 2:34 PM EDT Images from the original note were not included. [facility] [place] NEPHROLOGY/HYPERTENSION DIALYSIS PROGRESS NOTE PATIENT: Sindi Rudolph : 1960 Kimani Leger MD REASON FOR CONSULTATION: ESRD for Hemodialysis Management INTERVAL HISTORY: Sindi Rudolph is a 63 y.o.male with ESRD on HD ([facility], [facility], [facility]) presenting on 01/03 with ischemic/painful toe requiring amputation. Nephrology engaged for HD management. The patient is seen and examined on HD in [facility]. He endorses an uneventful night. His metabolic and volume parameters have been reviewed and he is tolerating HD well. He is scheduled for 3 hours of HD.He is receiving treatment via his left AVF which was cannulated without difficulty per HD RN and maintaining BFR of 450. He is on a 3K bath and a 180 dialyzer UFG is aimed at 2L removal. ROS: 4 point review of sytem was done, everything was negative except for what was mentioned above. INTAKE/OUTPUTS: Intake/Output Summary (Last 24 hours) at 01/09/2024 1435 Last data filed at 01/09/2024 1145 Gross per 24 hour Intake 410 ml Output 0 ml Net 410 ml MEDICATIONS: heparin (porcine) 8,000 Units Intravenous Once in dialysis amLODIPine 10 mg Oral Daily aspirin 325 mg Oral Daily bumetanide 2 mg Oral BID gabapentin 300 mg Oral TID sertraline 50 mg Oral Daily sevelamer carbonate 1,600 mg Oral TID WC sodium chloride 0.9 % (flush) 5 mL Intravenous BID heparin (porcine) 5,000 Units Subcutaneous Q8H RICHELLE insulin lispro 0-8 Units Subcutaneous TID WC insulin glargine (Lantus;Semglee) (100 unit/mL) subcutaneous injection 30 Units Subcutaneous Daily piperacillin-tazobactam 3.375 g Intravenous Q12H insulin lispro 1-4 Units Subcutaneous TID AC VITALS: Last value Range last 24 hrs Temperature Temp: 36.5 ??C (97.7 ??F) Temp: [36.5 ??C (97.7 ??F)-37 ??C (98.6 ??F)] Heart Rate Heart Rate: 76 Heart Rate: [76] Blood Pressure BP: 150/75 BP: (107-157)/(43-75) Respiratory Rate Resp: 16 Resp: [16] SpO2 SpO2: 98 % SpO2: [97 %-100 %] Ventilator: Mode Rate TV PEEP FiO2 Pplateau PHYSICAL EXAM: Appearance: NAD Skin: Warm and dry HEENT: Sclera white. Mucous membranes moist, atraumatic, normocephalic Chest: Lungs clear to auscultation w/o wheezes/ rhonchi/ crackles, Respirations non labored CV: S1 and S2 clear w/o murmur, gallop, or rub. JVP not elevated. Abd: Soft. + BS. No bruit. Non tender Ext: Warm. No cyanosis. No dependent edema. Neuro: A&O x4 Psych: Mood appropriate STUDIES: LABS: CBC: Recent Labs 01/07/24 0501/06/24 0511 01/05/24 0818 WBC 5.88 5.83 6.56 HGB 10.5* 10.0* 9.8* PLATELET 154 133* 151 Chemistry: Recent Labs 01/07/24 0511 01/06/24 0511 01/05/24 0818 NA 138 137 135 K 4.6 4.6 6.3* CL 97* 98 95* CO2 25 26 23 BUN 49* 39* 74* CREATININE 9.75* 8.15* 11.45* GLUCOSE 138 118 185 Recent Labs 01/07/24 0511 01/06/24 0511 01/05/24 0818 CALCIUM 8.7 8.4* 8.3* PHOS 7.1* -- -- Lab Results Component Value Date MICROALBUR 325.3 01/06/2024 Lab Results Component Value Date HA1C 10.0 (H) 02/06/2020 HA1C 8.6 (H) 07/29/2019 HA1C 11.2 (H) 06/08/2018 Lab Results Component Value Date PTH 131 (H) 10/22/2018 CALCIUM 8.7 01/07/2024 PHOS 7.1 (H) 01/07/2024 No results found for: 25OHVITD MICROBIOLOGY: Micro: No results found for: URINECULTURE Lab Results Component Value Date/Time GRAMSTAIN Few neutrophils 01/04/2024 1551 GRAMSTAIN No microorganisms seen 01/04/2024 1551 No results found for: BLOODCX ASSESSMENT and PLAN Sindi Rudolph is a 63 y.o.male with ESRD on HD ([facility], [facility], [facility]) presenting on 01/03 with ischemic/painful toe requiring amputation. Nephrology engaged for HD management. The patient is seen and examined on HD in [facility]. He endorses an uneventful night. His metabolic and volume parameters have been reviewed and he is tolerating HD well. He is scheduled for 3 hours of HD.He is receiving treatment via his left AVF which was cannulated without difficulty per HD RN and maintaining BFR of 450. He is on a 3K bath and a 180 dialyzer UFG is aimed at 2L removal. Nephrology will continue to follow. ESRD on HD MWF at [facility] Plan: Next HD 01/10 per patient schedule Duration: 3hrs Bath: K bath per inpatient protocol BFR: 450 DFR: 1.5x BFR Dialyzer: 180 Anticoagulation: Heparin 4000 units 2. Hemodynamics: BP: (150-157)/(65-75) slightly above target range. UFG will be adjusted to aid volume management. Antihypertensives:Amlodipine 10mgs daily, Bumex 2mgs bid Continue current antihypertensive regimen 3. Hemoglobin: HGB 10.5 g/dL and currently at Goal. Will continue to monitor Goal Hgb >10, Ferritin >100ng/dl, TSAT >20% 4. Acid/Base status: No metabolic acidosis appreciated. 5. Electrolytes: both WNL 6. Bone Mineral Health: Hyperphosphatemia present. Calcium wnl and PTH at goal for CKD 5. -Please check phos 3x weekly -Renal Diet -Continue Sevelamer Carbonate 1600mgs TID with meal Stage 5 - PTH 150-300pg/ml Phos 2.7-4.6 Ca 8.5-10.5mg/dl Thanks for letting us participate in the care of this patient. This case was discussed with attending scoring machine operator Dr. Zamarripa. We will continue to follow. 01/09/2024 Shira Seth APRN Page#[phone] [facility] [address] 2nd floor, Personal Shopper [address] [place] [address] Associated attestation - Shaheen Zamarripa MD - 01/09/2024 6:21 PM EDT This patient was seen in conjunction with Shira Seth APRN. I performed the majority of this shared visit based on medical decision making. SHAHEEN ZAMARRIPA MD Seen and examined on hemodialysis. Stable run. * Miguel Rosales RN - 01/09/2024 11:23 AM EDT Confirmed with Tali at [facility] in [facility] that Cefepime is readily available to infuse. * Faby Ferrell MD - 01/09/2024 10:46 AM EDT OPAT INTAKE: Diagnosis: Osteomyelitis, Antibiotic Type: IV, Organism(s): Klebsiella species, Acinetobacter species and MSSA, Antibiotic(s) being taken: Cefepime (2 G post HD) With a start date of 01/04/2024, and anticipated end date of 02/15/2024. Desired labs: CRP, CMP and CBC w/diff. Lab frequency: Weekly Other: Desired timing of end of therapy appointment: Week of: 02/06/2024. Other speciality appointments to coordinate with: Yes Which speciality?: Ortho Dialysis patient?: Yes Imaging needed?: No Preferred provider for end of therapy visit: Any Beta-lactam therapy is associated with a rash severe diarrhea including C. difficile, hepatic and renal dysfunction as below as well as bone marrow suppression for which a weekly labs are recommended. Patient encouraged to return to ER if any significant side effects are experienced. * Faby Ferrell MD - 01/09/2024 10:05 AM EDT Images from the original note were not included. INFECTIOUS DISEASE CONSULTATION NOTE Reason for Consult: Foot OM Consulting Service: Medicine Consulting Attending: Haja Garner MD Admission Date: 01/04/2024 History of Present Illness: Sindi Rudolph is a 63 y.o. male with a history of poorly controlled type 2 diabetes mellitus complicated by proliferative diabetic retinopathy and peripheral neuropathy, end-stage renal disease ondialysis (Tuesday via fistula), morbid obesity, hyperlipidemia and hypertension is admitted with complaints of worsening right fifth toe ulcer. No spiking fever or leukocytosis on admission. Right foot x-ray showed mild osteolytic appearance of the tuft of fifth digit could be sequela of osteomyelitis as well as osteoarthropathy involving the midfoot. MRI of the foot was done as well which showed deep ulceration of the fifth toe distal phalanx exposing the underlying bone with acute osteomyelitis of the fifth distal and proximal phalanges no osteomyelitis of the fifth metatarsal. Superficial plantar ulceration underneath 1st metatarsalhead with no evidence of osteomyelitis of 1st metatarsal. Subcutaneous edema/enhancement surrounding above-mentioned ulcerations and dorsum foot suggestive of cellulitis. No organized fluid collection or abscess. Midfoot osteoarthropathy. The patient was seen by orthopedic surgery and underwent the following procedure 01/03 Procedure(s) (LRB): AMPUTATION, TRANSMETATARSAL TOE, ONE TOE (Right) MODIFIER WOUND VAC (N/A) Postop x-ray showed interval fifth ray resection OR cultures are growing Klebsiella and Acetobacter MSSA Patient was started on IV vancomycin and Zosyn and Zosyn was continued. ID service consulted for antibiotic management of right foot osteomyelitis secondary to Klebsiella and Acinetobacter Interval Hx: Remains afebrile, denies N,V,D Antimicrobials: IV Zosyn and IV vancomycin RECOMMENDATIONS: -All the bacteria isolated are susceptible to IV Cefepime, which can be administered post HD -Patient will likely need 6 weeks of IV therapy. EOT 02/14 -Pathology is currently pending -Rest of care per primary team -ID team to sign off. F/U with ID and Ortho after discharge -OPAT done. Review of Systems: Pertinent positives and negatives noted in HPI. 14 point ROS otherwise negative except noted in HPI. 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 Dense with synechiae. Right eye. 06/21/2012 Cellulitis 10/19/2018 Closed fracture of right proximal humerus 07/30/2019 Complication of anesthesia Had ?laryngospasm post extubation in OR 04/03/12, requrring brief reintubation. Diabetes mellitus 1995 Difficult intubation Two attempts (Mac3 and George 3 successful x 1 attempt. Suggest videolaryngoscope would be easier for future. DM eyes GERD (gastroesophageal reflux disease) no regular tx Hyperlipidemia Hypertension Neuromuscular disorder Type 2 diabetes mellitus with stage 5 chronic kidney disease not on chronic dialysis, with long-term current use of insulin Past Surgical History: Past Surgical History: Procedure Laterality Date CATARACT EXTRACTION, EXTRACAPSULAR, W/ LENS INSERTION 11/29/12 OS - DMM CATARACT REMOVAL 07/18/12 OD Swendris INTRAVITREAL INJECTION Left 10/12/2019 Eylea OS for DME per NNB INTRAVITREAL INJECTION Left 11/09/2019 Eylea OS for DME per NNB INTRAVITREAL INJECTION Left 12/07/2019 [facility] OS for DME per NNB INTRAVITREAL INJECTION Left 01/04/2020 E[facility]a OS for DME per NNB INTRAVITREAL INJECTION Left 02/15/2020 E[facility]a OS for DME per NNB INTRAVITREAL INJECTION Left 03/21/2020 [facility]a OS for DME per NNB IR DIALYSIS ACCESS - AV FISTULA EVALUATIONS 06/17/2020 IR Dialysis Access - AV Fistula Evaluations 06/17/2020 Kimani Larson MD [facility] IR DIALYSIS ACCESS - AV FISTULA EVALUATIONS 11/04/2020 IR Dialysis Access - AV Fistula Evaluations 11/04/2020 Kimani Larson MD [facility] RAD IR DIALYSIS ACCESS - AV FISTULA EVALUATIONS 01/25/2022 IR Dialysis Access - AV Fistula Evaluations 01/25/2022 Roderick Castillo MD [facility] PERIPHERAL IRIDOTOMY 04/06/2012 OD Swendris PRO AMPUTATION METATARSAL+TOE, SINGLE Right 01/04/2024 AMPUTATION, TRANSMETATARSAL TOE, ONE TOE (WRVU 6.64) performed by Thania Wesley MD at [facility] JESUS PRO EXTRACAPSULAR CATARACT RMVL INSERTION IO LENS PROSTH CPLX WO ECP 07/18/2012 PRO EXTRACAPSULAR CATARACT RMVL INSERTION IO LENS PROSTH W/O ECP 11/29/2012 CATARACT EXTRACTION, EXTRACAPSULAR, W/ LENS INSERTION performed by Erasmo George MD at [facility] OSC PRO REPAIR COMPLEX RETINA DETACH VITRECTOMY & MEMB PEEL 04/03/2012, 04/03/12 REPAIR COMPLEX RETINAL DETACHMENT, W/ VITRECTOMY, MEMBRANE PEELING performed by Matteo Diane MD at [facility] MAIN OR PRO REPAIR COMPLEX RETINA DETACH VITRECTOMY & MEMB PEEL 07/31/2012 REPAIR COMPLEX RETINAL DETACHMENT, W/ VITRECTOMY, MEMBRANE PEELING performed by Matteo Diane MD at [facility] MAIN OR PRO REPAIR COMPLEX RETINA DETACH VITRECTOMY & MEMB PEEL 01/08/2013 REPAIR COMPLEX RETINAL DETACHMENT, W/ VITRECTOMY, MEMBRANE PEELING performed by Matteo Diane MD at [facility] MAIN OR PRO TX EXTENSIVE RETINOPATHY, PHOTOCOAGULATION 07/06/2011 OS CBC PRO TX EXTENSIVE RETINOPATHY, PHOTOCOAGULATION 07/27/2011 OS CBC PRO TX EXTENSIVE RETINOPATHY, PHOTOCOAGULATION 09/21/2011 OS CBC PRO TX EXTENSIVE RETINOPATHY, PHOTOCOAGULATION 12/20/2011 OS MANN PRO TX EXTENSIVE RETINOPATHY, PHOTOCOAGULATION 01/04/2012 OS MANN VITRECTOMY, W/ MEMBRANE STRIPPING 04/03/2012 OD, [facility] YAG CAPSULOTOMY 11/15/2013 OS - Dr George Medications: Scheduled Meds: amLODIPine 10 mg Oral Daily aspirin 325 mg Oral Daily bumetanide 2 mg Oral BID gabapentin 300 mg Oral TID sertraline 50 mg Oral Daily sevelamer carbonate 1,600 mg Oral TID WC sodium chloride 0.9 % (flush) 5 mL Intravenous BID heparin (porcine) 5,000 Units Subcutaneous Q8H RICHELLE insulin lispro 0-8 Units Subcutaneous TID WC insulin glargine (Lantus;Semglee) (100 unit/mL) subcutaneous injection 30 Units Subcutaneous Daily piperacillin-tazobactam 3.375 g Intravenous Q12H insulin lispro 1-4 Units Subcutaneous TID AC Allergies/Adverse drug reactions: Allergies Allergen Reactions Mirtazapine Other reaction(s): Other (see comments) Agitation, Nightmares. Family History: Family History Problem (# of Occurrences) Relation (Name,Age of Onset) Diabetes (2) Mother, Father Hypertension (1) Father Glaucoma (1) Mother Negative family history of: Cataracts, Macular Degeneration, Retinal Detachment, Anesthesia Reaction, Amblyopia, Blindness, Cancer, Strabismus, Stroke, Thyroid Disease, Heart Disease Social History: Social History Tobacco Use Smoking status: Former Smokeless tobacco: Never Tobacco comments: quit in his 20's Vaping Use Vaping status: Never Used Substance Use Topics Alcohol use: No Drug use: No Social History Social History Narrative Pt lives with and son. Physical Exam: Last value Range last 24 hrs Temperature Temp: 37 ??C (98.6 ??F) Temp: [36.8 ??C (98.2 ??F)-37 ??C (98.6 ??F)] Heart Rate Heart Rate: 82 Heart Rate: -- Blood Pressure BP: 157/65 BP: (107-157)/(43-70) Respiratory Rate Resp: 16 Resp: [16-18] SpO2 SpO2: 100 % SpO2: [97 %-100 %] General: no acute distress, BMI 37 Head: normocephalic, atraumatic EENT: No conjunctival petechiae Neck: No LAD Cardiovascular: RRR, no murmur, rubs, or gallops Pulmonary: Lungs clear to auscultation bilaterally; no wheezing, rhonchi, or rales Abdomen: Soft, non-tender, non-distended Ext: No bleeding or pus from surgical site. Skin: No rash on visible skin Neuro: A&O, moves all 4 extremities spontaneously Psych: Euthymic, pleasant Lines/tubes/drains: Fistula Piv I have reviewed the pertinent laboratory, microbiology, and diagnostic/radiology/procedure results: Recent Labs 01/07/2451001/06/2451001/05/24 0818 WBC 5.88 5.83 6.56 HGB 10.5* 10.0* 9.8* HCT 33.7* 31.9* 31.1* PLATELET 154 133* 151 Recent Labs 01/07/2451001/06/2451001/05/24 0818 NA 138 137 135 K 4.6 4.6 6.3* CL 97* 98 95* CO2 25 26 23 BUN 49* 39* 74* CREATININE 9.75* 8.15* 11.45* No results for input(s): AST, ALT, ALKPHOS, BILITOT, BILIDIR in the last 168 hours. Recent Labs 01/04/24 0341 SEDRATE 109* Recent Labs 01/04/24 0341 CRP 33.9* Microbiology: 01/03 Cultures from the bone growing Klebsiella oxytoca and rare Acinetobacter, Staph aureus Bone Culture [[id number]] (Abnormal) Collected: 01/04/24 1551 Lab Status: Final result Specimen: Bone from Toe(s), Right Foot Updated: 01/08/24 0931 Bone Culture Rare Klebsiella oxytoca Abnormal Rare Acinetobacter species Abnormal Rare Staphylococcus aureus Abnormal Gram Stain Few neutrophils No microorganisms seen Susceptibility Klebsiella oxytoca Acinetobacter species Staphylococcus aureus VITEK 2 METHOD VITEK 2 METHOD VITEK 2 METHOD Amikacin <=2.0 ug/ml Susceptible Ampicillin >=32.0 ug/ml Resistant Ampicillin + Sulbactam =8.0 ug/ml Susceptible <=2.0 ug/ml Susceptible Cefazolin (Systemic) Resistant Cefepime <=0.12 ug/ml Susceptible 8.0 ug/ml Susceptible Ceftazidime 8.0 ug/ml Susceptible Ceftriaxone <=0.25 ug/ml Susceptible Ciprofloxacin <=0.06 ug/ml Susceptible 0.5 ug/ml Susceptible Clindamycin <=0.25 ug/ml Susceptible Gentamicin <=1.0 ug/ml Susceptible <=0.5 ug/ml Susceptible 1 Levofloxacin <=0.12 ug/ml Susceptible 0.5 ug/ml Susceptible 0.5 ug/ml Susceptible Linezolid 2.0 ug/ml Susceptible Meropenem 0.5 ug/ml Susceptible Oxacillin 0.5 ug/ml Susceptible 2 Piperacillin/Tazobactam <=4.0 ug/ml Susceptible Tetracycline <=1.0 ug/ml Susceptible 3 Trimethoprim/Sulfa <=20.0 ug/ml Susceptible <=20.0 ug/ml Susceptible <=10.0 ug/ml Susceptible Vancomycin 1.0 ug/ml Susceptible Imaging/diagnostics: Imaging reports reviewed. See detailed reports in epic. Pertinent imaging findings as below 01/03 Postop x-ray showed interval fifth ray resection 01/03 MRI IMPRESSION 1. Deep ulceration of 5th toe distal phalange exposing the underlying bone with acute osteomyelitis 5th distal and proximal phalanges. No osteomyelitis of 5th metatarsal 2. Superficial plantar ulceration underneath 1st metatarsal head with no evidence of osteomyelitis of 1st metatarsal. 3. Subcutaneous edema/enhancement surrounding above-mentioned ulcerations and dorsum foot suggestive of cellulitis. No organized fluid collection or abscess. 4. Midfoot osteoarthropathy. Electronically signed by: Caden Kemp MD, [facility] ([phone] X-ray foot IMPRESSION FINDINGS/IMPRESSION: * Mild osteolytic appearance of the tuft of the fifth digit distal phalanx, could be sequela of osteomyelitis in appropriate clinical setting (as clinically warranted, could consider MRI evaluation barring contraindication). * Moderately advanced osteoarthropathy involving the midfoot, predominantly medially. Arteriovascular calcifications. Electronically signed by: Huang Hernandez MD, [facility] ([phone]), at 01/04/2024 4:33 AM Please page ID Red team (pager [phone]) with questions or concerns or secure chat On weekends, please contact electronics computer mechanic ID fellow for urgent matters. Time spent > 75 minutes on the date of service on the [id number] encounter, chart review, clinical decision-making, documentation, and coordination of care with other team members regarding treatment of infection Dr. Ferrell, ID Attending, Department of Infectious Diseases 8 am to 5 pm, Tuesday - Tuesday01/09/2024 * Solange Gonzalez RN - 01/09/2024 8:05 AM EDT OUTCOME EVALUATION NOTE: OUTCOME SUMMARY: Provider paged regarding toe dressing for orders regarding dressing change, per patient dressing has not been changed since surgery. Dressing completed on R foot - next dressing change due at ortho follow up appt. Picture placed in chart. 1715- Pt belongings packed and left unit with patient. Discharge instructions reviewed with pt. D/csummary efaxed to [facility] PLAN MOVING FORWARD: Dispo planning HD * Ladonna Cheung RN - 01/09/2024 5:57 AM EDT Images from the original note were not included. OUTCOME EVALUATION NOTE: OUTCOME SUMMARY: Patient A&Ox4, legally blind, VSS on 2LNC. CPAP overnight. Denies nausea/vomiting, CP, SOB. Pain controlled w/ scheduled and PRN medications, see JUN. Dressing to R toe CDI. Patient voiding to toilet w/ SBA FWW. LBM 01/06. Pt oliguric, minimal urine overnight. Small BM per pt. No LUE usage d/t fistula. Pt utilizing specialized shoe when OOB. Patient sleeping in between care. PLAN MOVING FORWARD: Pain control Mobilize D/C planning INDIVIDUALIZED FALL PREVENTION INTERVENTIONS: Patient-specific fall risk factors per assessment: [current deficits]: Hospital environment, Pain, Medications Assistance [level of assistance required for transfers and ambulation]: SBA FWW Supervision [direct monitoring required during toileting and ADLs]: assistance provided for ADLs asneeded Surveillance [continuous indirect monitoring]: Hourly rounding, Masimo, Nursing knowledge exchange,Call doan within reach, Bed alarm Ladonna Cheung RN * Kimani Day RCP - 01/09/2024 4:58 AM EDT Respiratory Therapy NIV Note NIV Settings: NIV Mode: CPAP (AirCurve) O2 Bleed In (LPM): 3 L/min NIV Measurements: Resp: 16 SpO2: 99 % Skin Assessment: WNL/clean/intact Assessment: Pt seen for use of NIV , tolerating this well. Pt requests to go on 10-1030PM. Plan: Support the pt with NIV and O2 2-3L. Pt tolerating this well. Kimani Day RCP * Narinder Hercules MD - 01/08/2024 6:12 PM EDT Images from the original note were not included. DEPARTMENT OF INFECTIOUS DISEASE & [facility] INFECTIOUS DISEASE CONSULT PROGRESS NOTE Patient Info: SINDI RUDOLPH, 63 y.o., male 1960 [id number] Admission Date: 01/04/2024 Room/Bed Location: [facility] Consulting Attending: Haja Garner MD Consulting Service: Medicine Active ID Issue(s): R foot Osteo Bone Cx Klebsiella, Acinetobacter, Staph Antimicrobial(s): Current Zosyn (01/02- Vancomycin (01/03- Prior Recent Events: Staph aureus susceptibilities populated SUBJECTIVE Pt sitting in upright chair with raised leg, NAD. Denies fever, chills, CP, SOB, dysuria or abnormal BM. Feels well. Physical Exam: Last value Range last 24 hrs Temperature Temp: 36.8 ??C (98.2 ??F) Temp: [36.8 ??C (98.2 ??F)-37.1 ??C (98.8 ??F)] Heart Rate Heart Rate: 82 Heart Rate: -- Blood Pressure BP: 149/68 BP: (127-154)/(53-70) Respiratory Rate Resp: 16 Resp: [16-18] SpO2 SpO2: 99 % SpO2: [98 %-100 %] Physical Exam Constitutional: Appearance: Normal appearance. Eyes: Conjunctiva/sclera: Conjunctivae normal. Cardiovascular: Rate and Rhythm: Normal rate and regular rhythm. Heart sounds: Normal heart sounds. Pulmonary: Effort: Pulmonary effort is normal. Breath sounds: Normal breath sounds. Abdominal: General: Bowel sounds are normal. There is no distension. Tenderness: There is no abdominal tenderness. Musculoskeletal: General: Normal range of motion. Cervical back: Normal range of motion. Right lower leg: No edema. Left lower leg: No edema. Comments: Fistula on Left arm R foot covered in clean apryl bandages, dressings look clean w/o bleed or discharge Skin: General: Skin is warm. Neurological: General: No focal deficit present. Mental Status: He is alert and oriented to person, place, and time. Psychiatric: Mood and Affect: Mood normal. Behavior: Behavior normal. Thought Content: Thought content normal. Judgment: Judgment normal. I have reviewed the pertinent laboratory, microbiology, and diagnostic/radiology/procedure results: LABS Chemistry Recent Labs 01/07/24 0501/06/24 0511 01/05/24 0818 NA 138 137 135 K 4.6 4.6 6.3* CL 97* 98 95* CO2 25 26 23 BUN 49* 39* 74* CREATININE 9.75* 8.15* 11.45* GLUCOSE 138 118 185 CALCIUM 8.7 8.4* 8.3* PHOS 7.1* -- -- A1C No results for input(s): HA1C in the last 7068 hours. GI No results for input(s): BILITOT, BILIDIR, ALBUMIN, ALKPHOS, ALT, AST in the last 7068 hours. Lipid Panel Hematology Recent Labs 01/07/24 0501/06/24 0501/05/24 0818 WBC 5.88 5.83 6.56 HGB 10.5* 10.0* 9.8* PLATELET 154 133* 151 Recent Labs 01/07/24 0511 01/06/24 0511 NEUTROABS 4.15 4.04 Coags No results found for: INR, PT, PTT Lactate No results for input(s): LACTATEVEN, LACTATEART in the last 7068 hours. CRP Recent Labs 01/04/24 0341 CRP 33.9* ESR Recent Labs 01/04/24 0341 SEDRATE 109* CK No results for input(s): CKMB in the last 168 hours. UA No results found for: SPGRAVITYUA, PHUADIP, PROTEINUADIP, GLUCOSEU, KETONESUA, UROBILIUADIP, BLOODUADIP, NITRATEUA, LEUKOESTERUA, WBCUA, BILIRUBINUA Microbiology: Microbiology Results (Last 30 days) Procedure Component Value Units Date/Time Bone Culture, Aerobic & Anaerobic [[id number]] (Abnormal) Collected: 01/04/24 1551 Lab Status: Final result Specimen: Bone from Toe(s), Right Foot Updated: 01/08/24 1353 Narrative: The following orders were created for panel order Bone Culture, Aerobic & Anaerobic. Procedure Abnormality Status --------- ------ Bone Culture[[id number]] Abnormal Final result Anaerobic Culture[[id number]] Final result Please view results for these tests on the individual orders. Bone Culture [[id number]] (Abnormal) (Susceptibility) Collected: 01/04/24 1551 Lab Status: Final result Specimen: Bone from Toe(s), Right Foot Updated: 01/08/24 0915 Bone Culture Rare Klebsiella oxytoca Rare Acinetobacter species Rare Staphylococcus aureus Gram Stain Few neutrophils No microorganisms seen Susceptibility Klebsiella oxytoca VITEK 2 METHOD Ampicillin >=32.0 ug/ml Resistant Ampicillin + Sulbactam =8.0 ug/ml Susceptible Cefazolin (Systemic) Resistant Cefepime <=0.12 ug/ml Susceptible Ceftriaxone <=0.25 ug/ml Susceptible Ciprofloxacin <=0.06 ug/ml Susceptible Gentamicin <=1.0 ug/ml Susceptible Levofloxacin <=0.12 ug/ml Susceptible Piperacillin/Tazobactam <=4.0 ug/ml Susceptible Trimethoprim/Sulfa <=20.0 ug/ml Susceptible Susceptibility Acinetobacter species VITEK 2 METHOD Amikacin <=2.0 ug/ml Susceptible Ampicillin + Sulbactam <=2.0 ug/ml Susceptible Cefepime 8.0 ug/ml Susceptible Ceftazidime 8.0 ug/ml Susceptible Ciprofloxacin 0.5 ug/ml Susceptible Levofloxacin 0.5 ug/ml Susceptible Meropenem 0.5 ug/ml Susceptible Trimethoprim/Sulfa <=20.0 ug/ml Susceptible Susceptibility Staphylococcus aureus VITEK 2 METHOD Clindamycin <=0.25 ug/ml Susceptible Gentamicin <=0.5 ug/ml Susceptible [1] Levofloxacin 0.5 ug/ml Susceptible Linezolid 2.0 ug/ml Susceptible Oxacillin 0.5 ug/ml Susceptible [2] Tetracycline <=1.0 ug/ml Susceptible [3] Trimethoprim/Sulfa <=10.0 ug/ml Susceptible Vancomycin 1.0 ug/ml Susceptible [1] Gentamicin is not appropriate for monotherapy for gram-positive infections. [2] Oxacillin (methicillin) susceptibility is a surrogate for the oral and parenteral cephalosporins, beta-lactam combination agents (amoxicillin- clavulanate, ampicillin-sulbactam and piperacillin-tazobactam) and carbapenem agents. It is NOT a surrogate for penicillin, ampicillin or piperacillin vern ceptibility. [3] Based on tetracycline susceptibility, this organism is considered susceptible to doxycycline. Anaerobic Culture [[id number]] Collected: 01/04/24 1550 Lab Status: Final result Specimen: Bone from Toe(s), Right Foot Updated: 01/08/24 1356 Anaerobic Culture No anaerobic organisms isolated Imaging/diagnostics: Results for orders placed or performed during the hospital encounter of 01/04/24 MRI Foot wwo Contrast Right (Exam End: 01/04/2024 5:40 AM) Result Value WORKSTATION ID [id number] Impression 1. Deep ulceration of 5th toe distal phalange exposing the underlying bone with acute osteomyelitis 5th distal and proximal phalanges. No osteomyelitis of 5th metatarsal 2. Superficial plantar ulceration underneath 1st metatarsal head with no evidence of osteomyelitis of 1st metatarsal. 3. Subcutaneous edema/enhancement surrounding above-mentioned ulcerations and dorsum foot suggestive of cellulitis. No organized fluid collection or abscess. 4. Midfoot osteoarthropathy. Thank you for letting us participate in the care of this patient. If you are a health care provider and have any questions regarding this report, please contact the number below. For patients who have questions please contact the health care companion that requested your imaging first. Electronically signed by: Caden Kemp MD, [facility] ([phone]), at 01/04/2024 8:31 AM XR Foot Min 3 views Right (Generic) (Exam End: 01/04/2024 3:55 AM) Result Value WORKSTATION ID [id number] Impression FINDINGS/IMPRESSION: * Mild osteolytic appearance of the tuft of the fifth digit distal phalanx, could be sequela of osteomyelitis in appropriate clinical setting (as clinically warranted, could consider MRI evaluation barring contraindication). * Moderately advanced osteoarthropathy involving the midfoot, predominantly medially. Arteriovascular calcifications. Please note, this examination was ordered, performed, and interpreted in a STAT/emergency setting. Thank you for letting us participate in the care of this patient. If you are a health care provider and have any questions regarding this report, please contact the number below. For patients who have questions please contact the health care companion that requested your imaging first. Electronically signed by: Huang Hernandez MD, [facility] ([phone]), at 01/04/2024 4:33 AM XR Foot Min 3 views Right (Generic) (Exam End: 01/04/2024 7:42 PM) Result Value WORKSTATION ID [id number] Impression 1. Interval partial fifth ray resection. Exam to serve as baseline for future comparison. 2. No acute osseous abnormality. Thank you for letting us participate in the care of this patient. If you are a health care provider and have any questions regarding this report, please contact the number below. For patients who have questions please contact the health care companion that requested your imaging first. Electronically signed by: Aaron Charles MD, [facility] ([phone]), at 01/05/2024 2:34 AM IMPRESSION: Sindi Rudolph is a 63 y.o. male with h/o poorly controlled type 2 diabetes mellitus complicated by proliferative diabetic retinopathy and peripheral neuropathy, end-stage renal disease on dialysis(Tuesday via fistula), morbid obesity, hyperlipidemia and hypertension is admitted with complaints of worsening right fifth toe ulcer. Our team was re-engaged after susceptibilities for staph aureus returned. It is penicillin sensitive. No need for further MRSA cover at this time. Will defer to Dr. Ferrell to finalize plan for the course of antibiotics 01/08. RECOMMENDATIONS: -Continue with IV Zosyn based on wound cultures from the OR growing Klebsiella, Acinetobacter, MSSA -Stop Vancomycin -Patient will likely need 6 weeks of IV therapy. We will prefer to use an antibiotic combination that can be given post dialysis -Pathology is currently pending -Rest of care per primary team -Thank you for the consult. ID consult service will continue to follow. ID will follow-up next weekonce cultures are finalized for definitive recommendations. Patient discussed with ID attending Dr. Narinder Hercules. Thank you for the consult. ID consult service will continue to follow. Please page ID Red team (pager [phone]) with questions or concerns. Joseph Cheek MD Infectious Diseases Fellow [facility] Pager: [phone] 01/08/2024 Infectious Diseases Attending I discussed the case with Dr. Cheek and reviewed the medical record, but I did not interview or examine Mr. Rudolph today. Cultures as above. I agree with Dr. Cheek's recommendations, as detailed above, including to continue treatment with Zosyn alone. * Marely Santillan RN - 01/08/2024 4:23 PM EDT OUTCOME EVALUATION NOTE: OUTCOME SUMMARY: Patient A&Ox4, legally blind, VSS on 2LNC. Denies nausea/vomiting, CP, SOB. Pain controlled w/ scheduled and PRN medications, see JUN. Dressing to R toe CDI. Patient voiding to toilet w/ SBA FWW.LBM 01/06. Pt oliguric. No LUE usage d/t fistula. Pt utilizing specialized shoe when OOB. PLAN MOVING FORWARD: Pain control Mobilize D/C planning INDIVIDUALIZED FALL PREVENTION INTERVENTIONS: Patient-specific fall risk factors per assessment: [current deficits]: Hospital environment, Pain, Medications Assistance [level of assistance required for transfers and ambulation]: SBA FWW Supervision [direct monitoring required during toileting and ADLs]: assistance provided for ADLs asneeded Surveillance [continuous indirect monitoring]: Hourly rounding, Masimo, Nursing knowledge exchange,Call doan within reach, Bed alarm Marely Santillan RN * Haja Garenr MD - 01/08/2024 2:00 PM EDT Hospital Medicine Attending Daily Progress Note Admit Date: 01/04/2024 Hospital Day 4 days Active Hospital Problems Diagnosis Osteomyelitis 5th toe R, s/p partial 5th ray resection [place] 01/04/24 Resolved Hospital Problems No resolved problems to display. PMH 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) Hyperopia Acute angle-closure glaucoma of right eye HTN (hypertension) GERD (gastroesophageal reflux disease) Proliferative diabetic retinopathy, both eyes Inpatient Medications: Scheduled amLODIPine 10 mg Oral Daily aspirin 325 mg Oral Daily bumetanide 2 mg Oral BID gabapentin 300 mg Oral TID sertraline 50 mg Oral Daily sevelamer carbonate 1,600 mg Oral TID WC sodium chloride 0.9 % (flush) 5 mL Intravenous BID heparin (porcine) 5,000 Units Subcutaneous Q8H RICHELLE insulin lispro 0-8 Units Subcutaneous TID WC insulin glargine (Lantus;Semglee) (100 unit/mL) subcutaneous injection 30 Units Subcutaneous Daily piperacillin-tazobactam 3.375 g Intravenous Q12H insulin lispro 1-4 Units Subcutaneous TID AC Continuous infusions: PRN: sodium chloride 0.9%, sodium chloride 0.9 % (flush), lidocaine, melatonin, acetaminophen, polyethylene glycoL (MIRALAX) oral powder AND bisacodyL AND bisacodyl EC AND lactulose AND lactulose AND magnesium citrate AND Tap water enema, ondansetron ODT OR ondansetron, glucose 40% oral geL OR dextrose OR glucagon Interval History: Stopped vancomycin as MSSA. Tolerated HD. No f/c, no dizziness / chest pain. Physical Exam Vitals Range last 24 hrs Temperature Temp: [36.9 ??C (98.4 ??F)-37.1 ??C (98.8 ??F)] Heart Rate Heart Rate: -- Blood Pressure BP: (127-154)/(53-70) Respiratory Rate Resp: [18] SpO2 SpO2: [98 %-100 %] Intake/Output Summary (Last 24 hours) at 01/08/2024 1400 Last data filed at 01/08/2024 0800 Gross per 24 hour Intake 220 ml Output -- Net 220 ml Patient Vitals for the past 168 hrs: Weight 01/04/24 0050 99.8 kg (220 lb) Body mass index is 37.76 kg/m??. Physical Exam GEN - awake, alert and oriented times three HEENT - Oropharynx moist without lesions Lungs - cta bilat, good resp effort Heart - RRR, S1,S2, no murmur, gallop or rub Abdomen - nt, nd, normal active bowel sounds, no rebound or guarding Extremities - No clubbing, cyanosis or edema, left foot - dressing clean dry and in place Studies reviewed in eDH. Remarkable for the following: LABS: Last 3 wbc, hgb, hct plt Recent Labs 01/07/24 0501/06/24 0501/05/24 08 WBC 5.88 5.83 6.56 HGB 10.5* 10.0* 9.8* HCT 33.7* 31.9* 31.1* PLATELET 154 133* 151 Last 3 Lytes Recent Labs 01/07/24 0501/06/24 0501/05/24 08 NA 138 137 135 K 4.6 4.6 6.3* CL 97* 98 95* CO2 25 26 23 BUN 49* 39* 74* CREATININE 9.75* 8.15* 11.45* Last 3 LFTs No results for input(s): AST, ALT, ALKPHOS, BILITOT, BILIDIR in the last 7068hours. FSBG Trend Recent Labs 01/08/24 1210 01/08/24 1142 01/08/24 0739 01/07/24 1958 01/07/24 1719 01/07/24 1154 01/07/24 0748 01/06/24 2247 01/06/24 1635 01/06/24 1138 POCGLU 197 209* 132 184 136 85 128 138 174 145 MICRO: No results for input(s): URINECULTURE in the last 720 hours. Recent Labs 01/04/24 1551 GRAMSTAIN Few neutrophils No microorganisms seen No results for input(s): BLOODCX in the last 720 hours. ECG: No results for input(s): DIAGLINE, QTCCALC in the last 720 hours. VASCULAR: Recent Labs 01/04/24 0319 VBTEXTRPT Department: Vascular Surgery Lab Patient: [id number] (SINDI RUDOLPH) CPT: 34045 Referring Physician: LARISA GEORGE Phone: Indications: Gangrene 5th digit, right foot; ? PAD Diabetes mellitus: Yes Findings: Right Pressure (mm Hg) JOSÉ MIGUEL Waveform TBI Brachial Artery 148 Common Femoral Artery Triphasic Popliteal Artery Triphasic Dorsalis Pedis (Ankle) Artery 187 1.26 Triphasic Posterior Tibial (Ankle) Artery 160 1.08 Triphasic Great Toe 119 0.80 Left Pressure (mm Hg) JOSÉ MIGUEL Waveform TBI Common Femoral Artery Triphasic Popliteal Artery Triphasic Dorsalis Pedis (Ankle) Artery 169 1.14 Biphasic-Rev Posterior Tibial (Ankle) Artery 232 1.57 Triphasic Great Toe 126 0.85 Interpretation: RIGHT: No significant lower extremity arterial [...] on Doppler waveforms and toe pressures. Comparison: No previous study in our vascular lab database for comparison. Electronically Signed by: GERMAN GONZALES on 2024-01-04 11:08:04 AM End of Report IMAGING: Results for orders placed or performed during the hospital encounter of 01/04/24 MRI Foot wwo Contrast Right (Exam End: 01/04/2024 5:40 AM) Result Value WORKSTATION ID [id number] Impression 1. Deep ulceration of 5th toe distal phalange exposing the underlying bone with acute osteomyelitis 5th distal and proximal phalanges. No osteomyelitis of 5th metatarsal 2. Superficial plantar ulceration underneath 1st metatarsal head with no evidence of osteomyelitis of 1st metatarsal. 3. Subcutaneous edema/enhancement surrounding above-mentioned ulcerations and dorsum foot suggestive of cellulitis. No organized fluid collection or abscess. 4. Midfoot osteoarthropathy. Thank you for letting us participate in the care of this patient. If you are a health care provider and have any questions regarding this report, please contact the number below. For patients who have questions please contact the health care companion that requested your imaging first. Electronically signed by: Caden Kemp MD, [facility] ([phone]), at 01/04/2024 8:31 AM XR Foot Min 3 views Right (Generic) (Exam End: 01/04/2024 3:55 AM) Result Value WORKSTATION ID [id number] Impression FINDINGS/IMPRESSION: * Mild osteolytic appearance of the tuft of the fifth digit distal phalanx, could be sequela of osteomyelitis in appropriate clinical setting (as clinically warranted, could consider MRI evaluation barring contraindication). * Moderately advanced osteoarthropathy involving the midfoot, predominantly medially. Arteriovascular calcifications. Please note, this examination was ordered, performed, and interpreted in a STAT/emergency setting. Thank you for letting us participate in the care of this patient. If you are a health care provider and have any questions regarding this report, please contact the number below. For patients who have questions please contact the health care companion that requested your imaging first. Electronically signed by: Huang Hernandez MD, [facility] ([phone]), at 01/04/2024 4:33 AM XR Foot Min 3 views Right (Generic) (Exam End: 01/04/2024 7:42 PM) Result Value WORKSTATION ID [id number] Impression 1. Interval partial fifth ray resection. Exam to serve as baseline for future comparison. 2. No acute osseous abnormality. Thank you for letting us participate in the care of this patient. If you are a health care provider and have any questions regarding this report, please contact the number below. For patients who have questions please contact the health care companion that requested your imaging first. Electronically signed by: Aaron Charles MD, [facility] ([phone]), at 01/05/2024 2:34 AM Assessment & Plan: Sindi Rudolph is a 63 y.o. 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 myelitis with gangrenous diabetic foot ulcers on the right foot s/p fifth toe amp on 01/04/24 # Gangrenous foot ulcer # Osteomyelitis of the 5th toe s/p amp - c/w Zosyn stopped vanc 9.8 -Cultures now with rare Kelbsiella oxytoca, Acetinobacter, Staph aureus -ID consulted per ortho request for possible need of OPAT -iv antibiotics at discharge -Tylenol for fevers -Trend inflammatory markers -Appreciate orthopedic recommendations - WBAT forefoot offloading shoe - wound check and suture removal in 2-3 weeks #HTN #HLD -Amlodipine 10 mg daily -Atorvastatin 40 mg daily #ESRD on HD M/W/F - plan for HD today -Sevelamer 1600 mg TID #T2DM -Lantus 20 units daily -6 units 3 times daily -SSL #Neuropathy -Gabapentin 300 mg 3 times daily #BPH -Flomax 0.4 mg nightly # Anxiety/depression -Sertraline 25 mg daily #Routine --DVT ppx: heparin --GI ppx: --Diet renal --Dispo: --Code status: Attempt Cardiopulmonary Resuscitation - Inpatient Team Pager(MD Coverage 22/11): [phone] PCP: Kimani Leger MD [phone] Attestation: IPI Certification I certify that I am a D-H credentialed attending provider with admitting privileges and that the patient meets or has met medical necessity to require an inpatient IPI level of care meeting a minimumof two midnights or is on the [facility] inpatient only procedure list (status C) due to: toe osteo HAJA GARNER MD 01/08/2024 * Nettie Davis, [employer] - 01/08/2024 9:27 AM EDTSummary: Progress note PATIENT: Sindi Rudolph : 1960 NEPHROLOGY PROGRESS NOTE Sindi Rudolph is a 63 y.o. male with past medical history significant for ESRD on HD. Consulted for ESRD and hemodialysis management. Interval History: - No acute events overnight. - Patient seen and evaluated in person at bedside. - Lab and metabolic parameters reviewed. - Without complaints. PE: General: Alert, comfortable. Cooperative with exam. HEENT: Sclera white. Mucous membranes moist. CV: S1 and S2. HR regular. Resp: Lungs clear with no crackles or wheezes. Respirations unlabored. Abd: Soft. + BS. Ext: Warm. No cyanosis. No BLE edema. Skin: Warm and dry to touch. No rashes on exposed skin. Neuro: Alert and oriented x4, no focal deficits identified. Psych: Mood appropriate. Pleasant. MEDICATIONS: amLODIPine 10 mg Oral Daily aspirin 325 mg Oral Daily bumetanide 2 mg Oral BID gabapentin 300 mg Oral TID sertraline 50 mg Oral Daily sevelamer carbonate 1,600 mg Oral TID sodium chloride 0.9 % (flush) 5 mL Intravenous BID heparin (porcine) 5,000 Units Subcutaneous Q8H [facility] insulin lispro 0-8 Units Subcutaneous TID WC insulin glargine (Lantus;Semglee) (100 unit/mL) subcutaneous injection 30 Units Subcutaneous Daily piperacillin-tazobactam 3.375 g Intravenous Q12H insulin lispro 1-4 Units Subcutaneous TID AC Allergies Allergen Reactions Mirtazapine Other reaction(s): Other (see comments) Agitation, Nightmares. PHYSICAL EXAM: Last value Temperature Temp: 37.1 ??C (98.8 ??F) Heart Rate Heart Rate: 82 Blood Pressure BP: 154/70 Respiratory Rate Resp: 18 SpO2 SpO2: 100 % STUDIES: Labs: CBC: Recent Labs 01/07/2451001/06/24 0511 01/05/24 0818 WBC 5.88 5.83 6.56 HGB 10.5* 10.0* 9.8* PLATELET 154 133* 151 Chemistry: Recent Labs 01/07/24 0511 01/06/24 0511 01/05/24 0818 NA 138 137 135 K 4.6 4.6 6.3* CL 97* 98 95* CO2 25 26 23 BUN 49* 39* 74* CREATININE 9.75* 8.15* 11.45* GLUCOSE 138 118 185 Recent Labs 01/07/2451001/06/24 0511 01/05/24 0818 CALCIUM 8.7 8.4* 8.3* PHOS 7.1* -- -- LFT's: No results for input(s): BILITOT, BILIDIR, ALBUMIN, ALKPHOS, ALT, AST in the last 7068 hours. Assessment and Recommendations: Sindi Rudolph is a 63 y.o. male with ESRD on HD. Nephrology consulted for dialysis management. Feeling well today with no complaints. Denies chest pain, SOB, NVD, bleeding, bruising. 1) ESRD on hemodialysis- Patient seen and evaluated at bedside. No urgent indications for dialysis today. Last HD session Sat 01/06, normal shift is MWF. Will plan for next treatment on Tuesday, 01/08, with the possibly that it may get pushed back to r/t staffing. Current prescription: 3 hours, Na 140, K per protocol, Bicarb 35, T36, BFR 450, DFR 1.5x BFR. F180 dialyzer, UF goal 1-3L as tolerated based on BP. Heparin bolus pre-HD 8,000 units, and heparin catheter locks. Orders entered. Dialysis access - Left lower arm AVF. 2) Anemia - Hgb 10.5, goal 10-11. Iron Stores not assessed this admission. 3) Bone and mineral - Calcium within normal limits. Phosphorous elevated at 7.1. PTH and 25-OH Vit D not assessed this admission. Please ensure low-phosphorus diet and continue sevelamer carb 1,300mgTID with meals. 4) Acid-base - No metabolic acidosis appreciated. 5) Electrolytes - Potassium and sodium in range. 6) Hemodynamics - BP appears to be well-controlled at this time. Pt still make urine, continue Bumex 2mg BID and record UOP. 7) Nutrition - Recommend Smiley-ofe. Nettie Davis APRN Nephrology-Hypertension [phone] Pager # [phone] Associated attestation - Shaheen Zamarripa MD - 01/08/2024 1:30 PM EDT This patient was seen in conjunction with Stephanie Davis APRN. I performed the majority of this shared visit based on medical decision making. SHAHEEN ZAMARRIPA MD Stable ESRD. Tolerated dialysis well yesterday. Continue HD TIW. * Ladonna Cheung RN - 01/08/2024 6:43 AM EDT OUTCOME EVALUATION NOTE: OUTCOME SUMMARY: Patient A&Ox4, legally blind, VSS on 2LNC. CPAP overnight. Denies nausea/vomiting, CP, SOB. Pain controlled w/ scheduled and PRN medications, see JUN. Dressing to R toe CDI. Patient voiding to toilet w/ SBA FWW. LBM 01/06. Pt oliguric, no urine overnight. No LUE usage d/t fistula. Pt utilizing specialized shoe when OOB. Patient sleeping in between care. PLAN MOVING FORWARD: Pain control Mobilize D/C planning INDIVIDUALIZED FALL PREVENTION INTERVENTIONS: Patient-specific fall risk factors per assessment: [current deficits]: Hospital environment, Pain, Medications Assistance [level of assistance required for transfers and ambulation]: SBA FWW Supervision [direct monitoring required during toileting and ADLs]: assistance provided for ADLs asneeded Surveillance [continuous indirect monitoring]: Hourly roundingIrais, Nursing knowledge exchange,Call doan within reach, Bed alarm Ladonna Cheung RN * Haja Garner MD - 01/07/2024 12:54 PM EDT Hospital Medicine Attending Daily Progress Note Admit Date: 01/04/2024 Hospital Day 3 days Active Hospital Problems Diagnosis Osteomyelitis 5th toe R, s/p partial 5th ray resection [place] 01/04/24 Resolved Hospital Problems No resolved problems to display. PMH 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) Hyperopia Acute angle-closure glaucoma of right eye HTN (hypertension) GERD (gastroesophageal reflux disease) Proliferative diabetic retinopathy, both eyes Inpatient Medications: Scheduled heparin (porcine) 8,000 Units Intravenous Once in dialysis amLODIPine 10 mg Oral Daily aspirin 325 mg Oral Daily bumetanide 2 mg Oral BID gabapentin 300 mg Oral TID sertraline 50 mg Oral Daily sevelamer carbonate 1,600 mg Oral TID WC sodium chloride 0.9 % (flush) 5 mL Intravenous BID heparin (porcine) 5,000 Units Subcutaneous Q8H [facility] insulin lispro 0-8 Units Subcutaneous TID WC insulin glargine (Lantus;Semglee) (100 unit/mL) subcutaneous injection 30 Units Subcutaneous Daily piperacillin-tazobactam 3.375 g Intravenous Q12H insulin lispro 1-4 Units Subcutaneous TID AC Continuous infusions: PRN: heparin (porcine), sodium chloride 0.9%, sodium chloride 0.9 % (flush), lidocaine, melatonin, acetaminophen, polyethylene glycoL (MIRALAX) oral powder AND bisacodyL AND bisacodyl EC AND lactulose AND lactulose AND magnesium citrate AND Tap water enema, ondansetron ODT OR ondansetron, glucose 40% oral geL OR dextrose OR glucagon, vancomycin- intermittent dosing per levels Interval History: s/p OR 01/03, tolerated well. Pain control - Denies sob, n/v, diarrhea, chest pain.Cultures now with rare Kelbsiella oxytoca and Acetinobacter. Staph aureus also noted in bone culture. Klebsiella sensitive to piptazo, pending other sensitivities. Doing well in HD this AM. Physical Exam Vitals Range last 24 hrs Temperature Temp: [36.5 ??C (97.7 ??F)-37.5 ??C (99.5 ??F)] Heart Rate Heart Rate: [82-84] Blood Pressure BP: (123-175)/(63-83) Respiratory Rate Resp: [17-18] SpO2 SpO2: [95 %-100 %] Intake/Output Summary (Last 24 hours) at 01/07/2024 1254 Last data filed at 01/07/2024 1117 Gross per 24 hour Intake 200 ml Output 0 ml Net 200 ml Patient Vitals for the past 168 hrs: Weight 01/04/24 0050 99.8 kg (220 lb) Body mass index is 37.76 kg/m??. Physical Exam GEN - awake, alert and oriented times three HEENT - Oropharynx moist without lesions Lungs - cta bilat, good resp effort Heart - RRR, S1,S2, no murmur, gallop or rub Abdomen - nt, nd, normal active bowel sounds, no rebound or guarding Extremities - No clubbing, cyanosis or edema, left foot - dressing clean dry and in place Studies reviewed in eDH. Remarkable for the following: LABS: Last 3 wbc, hgb, hct plt Recent Labs 01/07/24 0511 01/06/24 0511 01/05/24 0818 WBC 5.88 5.83 6.56 HGB 10.5* 10.0* 9.8* HCT 33.7* 31.9* 31.1* PLATELET 154 133* 151 Last 3 Lytes Recent Labs 01/07/24 0511 01/06/24 0511 01/05/24 0818 NA 138 137 135 K 4.6 4.6 6.3* CL 97* 98 95* CO2 25 26 23 BUN 49* 39* 74* CREATININE 9.75* 8.15* 11.45* Last 3 LFTs No results for input(s): AST, ALT, ALKPHOS, BILITOT, BILIDIR in the last 7068hours. FSBG Trend Recent Labs 01/07/24 1154 01/07/24 0748 01/06/24 2247 01/06/24 1635 01/06/24 1138 01/06/24 0741 01/05/24 2114 01/05/24 1559 01/05/24 1143 01/04/24 2058 POCGLU 85 128 138 174 145 104 155 166 127 209* MICRO: No results for input(s): URINECULTURE in the last 720 hours. Recent Labs 01/04/24 1551 GRAMSTAIN Few neutrophils No microorganisms seen No results for input(s): BLOODCX in the last 720 hours. ECG: No results for input(s): DIAGLINE, QTCCALC in the last 720 hours. VASCULAR: Recent Labs 01/04/24 0319 VBTEXTRPT Department: Vascular Surgery Lab Patient: [id number] (SINDI RUDOLPH) CPT: 52398 Referring Physician: LARISA GEORGE Phone: Indications: Gangrene 5th digit, right foot; ? PAD Diabetes mellitus: Yes Findings: Right Pressure (mm Hg) JOSÉ MIGUEL Waveform TBI Brachial Artery 148 Common Femoral Artery Triphasic Popliteal Artery Triphasic Dorsalis Pedis (Ankle) Artery 187 1.26 Triphasic Posterior Tibial (Ankle) Artery 160 1.08 Triphasic Great Toe 119 0.80 Left Pressure (mm Hg) JOSÉ MGIUEL Waveform TBI Common Femoral Artery Triphasic Popliteal Artery Triphasic Dorsalis Pedis (Ankle) Artery 169 1.14 Biphasic-Rev Posterior Tibial (Ankle) Artery 232 1.57 Triphasic Great Toe 126 0.85 Interpretation: RIGHT: No significant lower extremity arterial [...] on Doppler waveforms and toe pressures. Comparison: No previous study in our vascular lab database for comparison. Electronically Signed by: GERMAN GONZALES on 2024-01-04 11:08:04 AM End of Report IMAGING: Results for orders placed or performed during the hospital encounter of 01/04/24 MRI Foot wwo Contrast Right (Exam End: 01/04/2024 5:40 AM) Result Value WORKSTATION ID [id number] Impression 1. Deep ulceration of 5th toe distal phalange exposing the underlying bone with acute osteomyelitis 5th distal and proximal phalanges. No osteomyelitis of 5th metatarsal 2. Superficial plantar ulceration underneath 1st metatarsal head with no evidence of osteomyelitis of 1st metatarsal. 3. Subcutaneous edema/enhancement surrounding above-mentioned ulcerations and dorsum foot suggestive of cellulitis. No organized fluid collection or abscess. 4. Midfoot osteoarthropathy. Thank you for letting us participate in the care of this patient. If you are a health care provider and have any questions regarding this report, please contact the number below. For patients who have questions please contact the health care companion that requested your imaging first. Electronically signed by: Caden Kemp MD, [facility] ([phone]), at 01/04/2024 8:31 AM XR Foot Min 3 views Right (Generic) (Exam End: 01/04/2024 3:55 AM) Result Value WORKSTATION ID [id number] Impression FINDINGS/IMPRESSION: * Mild osteolytic appearance of the tuft of the fifth digit distal phalanx, could be sequela of osteomyelitis in appropriate clinical setting (as clinically warranted, could consider MRI evaluation barring contraindication). * Moderately advanced osteoarthropathy involving the midfoot, predominantly medially. Arteriovascular calcifications. Please note, this examination was ordered, performed, and interpreted in a STAT/emergency setting. Thank you for letting us participate in the care of this patient. If you are a health care provider and have any questions regarding this report, please contact the number below. For patients who have questions please contact the health care companion that requested your imaging first. Electronically signed by: Huang Hernandez MD, [facility] ([phone]), at 01/04/2024 4:33 AM XR Foot Min 3 views Right (Generic) (Exam End: 01/04/2024 7:42 PM) Result Value WORKSTATION ID [id number] Impression 1. Interval partial fifth ray resection. Exam to serve as baseline for future comparison. 2. No acute osseous abnormality. Thank you for letting us participate in the care of this patient. If you are a health care provider and have any questions regarding this report, please contact the number below. For patients who have questions please contact the health care companion that requested your imaging first. Assessment & Plan: Sindi Rudolph is a 63 y.o. 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 - Staph aureus also noted in bone culture. -ID consulted per ortho request for possible need of OPAT -iv antibiotics at discharge -Tylenol for fevers -Trend inflammatory markers -Appreciate orthopedic recommendations - WBAT forefoot offloading shoe - wound check and suture removal in 2-3 weeks #HTN #HLD -Amlodipine 10 mg daily -Atorvastatin 40 mg daily #ESRD on HD M/W/F - plan for HD today -Sevelamer 1600 mg TID #T2DM -Lantus 20 units daily -6 units 3 times daily -SSL #Neuropathy -Gabapentin 300 mg 3 times daily #BPH -Flomax 0.4 mg nightly # Anxiety/depression -Sertraline 25 mg daily #Routine --DVT ppx: heparin --GI ppx: --Diet No diet orders on file --Dispo: --Code status: Attempt Cardiopulmonary Resuscitation - Inpatient Team Pager(MD Coverage 22/11): #[phone] PCP: Kimani Leger MD [phone] Attestation: IPI Certification I certify that I am a D-H credentialed attending provider with admitting privileges and that the patient meets or has met medical necessity to require an inpatient IPI level of care meeting a minimumof two midnights or is on the [facility] inpatient only procedure list (status C) due to: toe osteo HAJA GARNER MD 01/07/2024 * Marely Santillan RN - 01/07/2024 12:30 PM EDT Pt arrived back to unit from dialysis. * Nettie Davis APRN - 01/07/2024 8:44 AM EDTSummary: Progress note PATIENT: Sindi Rudolph : 1960 NEPHROLOGY PROGRESS NOTE Sindi Rudolph is a 63 y.o. male with past medical history significant for ESRD on HD. Consulted for ESRD and hemodialysis management. Interval History: - No acute events overnight. - Patient seen and evaluated in person at bedside. - Lab and metabolic parameters reviewed. - Without complaints. PE: General: Alert, comfortable. Cooperative with exam. HEENT: Sclera white. Mucous membranes moist. CV: S1 and S2. HR regular. Resp: Lungs clear with no crackles or wheezes. Respirations unlabored. Abd: Soft. + BS. Ext: Warm. No cyanosis. No BLE edema. Skin: Warm and dry to touch. No rashes on exposed skin. Neuro: Alert and oriented x4, no focal deficits identified. Psych: Mood appropriate. Pleasant. MEDICATIONS: heparin (porcine) 8,000 Units Intravenous Once in dialysis amLODIPine 10 mg Oral Daily aspirin 325 mg Oral Daily bumetanide 2 mg Oral BID gabapentin 300 mg Oral TID sertraline 50 mg Oral Daily sevelamer carbonate 1,600 mg Oral TID sodium chloride 0.9 % (flush) 5 mL Intravenous BID heparin (porcine) 5,000 Units Subcutaneous Q8H [facility] insulin lispro 0-8 Units Subcutaneous TID WC insulin glargine (Lantus;Semglee) (100 unit/mL) subcutaneous injection 30 Units Subcutaneous Daily piperacillin-tazobactam 3.375 g Intravenous Q12H insulin lispro 1-4 Units Subcutaneous TID AC Allergies Allergen Reactions Mirtazapine Other reaction(s): Other (see comments) Agitation, Nightmares. PHYSICAL EXAM: Last value Temperature Temp: 37.1 ??C (98.8 ??F) Heart Rate Heart Rate: 84 Blood Pressure BP: 151/72 Respiratory Rate Resp: 18 SpO2 SpO2: 97 % STUDIES: Labs: CBC: Recent Labs 01/07/2451001/06/24 0511 01/05/24 0818 WBC 5.88 5.83 6.56 HGB 10.5* 10.0* 9.8* PLATELET 154 133* 151 Chemistry: Recent Labs 01/07/24 0511 01/06/24 0511 01/05/24 0818 NA 138 137 135 K 4.6 4.6 6.3* CL 97* 98 95* CO2 25 26 23 BUN 49* 39* 74* CREATININE 9.75* 8.15* 11.45* GLUCOSE 138 118 185 Recent Labs 01/07/2451001/06/24 0511 01/05/24 0818 CALCIUM 8.7 8.4* 8.3* LFT's: No results for input(s): BILITOT, BILIDIR, ALBUMIN, ALKPHOS, ALT, AST in the last 7068 hours. Assessment and Recommendations: Sindi Rudolph is a 63 y.o. male with ESRD on HD. Nephrology consulted for dialysis management. Feeling well today with no complaints. Denies chest pain, SOB, NVD, bleeding, bruising. 1) ESRD on hemodialysis- Patient seen and evaluated on hemodialysis. Tolerating treatment well. UF goal 2.0 Liters. Pt normally dialyzes on MWF, was switched this week r/t surgery on Tue. Will plan for next treatment on 9/9/24. Current prescription: 3 hours, Na 140, K per protocol, Bicarb 35, T36, BFR 450, DFR 1.5x BFR. F180 dialyzer, UF goal 1-3L as tolerated based on BP. Heparin bolus pre-HD 8,000 units, and heparin catheter locks. Dialysis access - Left lower arm AVF. 2) Anemia - Hgb 10.5, goal 10-11. Iron Stores not assessed this admission. 3) Bone and mineral - Calcium within normal limits. Phosphorous elevated at 7.1. PTH and 25-OH Vit D not assessed this admission. Please ensure low-phosphorus diet and continue sevelamer carb 1,300mgTID with meals. 4) Acid-base - No metabolic acidosis appreciated. 5) Electrolytes - Potassium and sodium in range. 6) Hemodynamics - BP appears to be well-controlled at this time. Pt still make urine, continue Bumex 2mg BID and record UOP. 7) Nutrition - Recommend Smiley-ofe. Nettie Davis APRN Nephrology-Hypertension [phone] Pager # [phone] Associated attestation - Shaheen Zamarripa MD - 01/07/2024 4:26 PM EDT This patient was seen in conjunction with Stephanie Davis APRN. I performed the majority of this shared visit based on medical decision making. SHAHEEN ZAMARRIPA MD Seen and examined on hemodialysis. Stable run. * Marely Santillan RN - 01/07/2024 8:20 AM EDT Pt to Dialysis * Jesús Muñiz MD - 01/06/2024 12:24 PM EDT Hospital Medicine Attending Daily Progress Note Admit Date: 01/04/2024 Hospital Day 2 days Active Hospital Problems Diagnosis Osteomyelitis 5th toe R, s/p partial 5th ray resection [place] 01/04/24 Resolved Hospital Problems No resolved problems to display. PMH 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) Hyperopia Acute angle-closure glaucoma of right eye HTN (hypertension) GERD (gastroesophageal reflux disease) Proliferative diabetic retinopathy, both eyes Inpatient Medications: Scheduled amLODIPine 10 mg Oral Daily aspirin 325 mg Oral Daily bumetanide 2 mg Oral BID gabapentin 300 mg Oral TID sertraline 50 mg Oral Daily sevelamer carbonate 1,600 mg Oral TID WC sodium chloride 0.9 % (flush) 5 mL Intravenous BID heparin (porcine) 5,000 Units Subcutaneous Q8H RICHELLE insulin lispro 0-8 Units Subcutaneous TID WC insulin glargine (Lantus;Semglee) (100 unit/mL) subcutaneous injection 30 Units Subcutaneous Daily piperacillin-tazobactam 3.375 g Intravenous Q12H insulin lispro 1-4 Units Subcutaneous TID AC Continuous infusions: PRN: heparin (porcine), sodium chloride 0.9 % (flush), lidocaine, melatonin, acetaminophen, polyethylene glycoL (MIRALAX) oral powder AND bisacodyL AND bisacodyl EC AND lactulose AND lactulose AND magnesium citrate AND Tap water enema, ondansetron ODT OR ondansetron, glucose 40% oral geL OR dextrose OR glucagon, vancomycin- intermittent dosing per levels, sodium chloride 0.9% Interval History: s/p OR 01/03, tolerated well. Pain control - Denies sob, n/v, diarrhea, chest pain.Cultures now with rare Kelbsiella oxytoca and Acetinobacter. Staph aureus also noted in bone culture. Physical Exam Vitals Range last 24 hrs Temperature Temp: [36.3 ??C (97.4 ??F)-37.8 ??C (100 ??F)] Heart Rate Heart Rate: [73] Blood Pressure BP: (130-158)/(57-97) Respiratory Rate Resp: [16-20] SpO2 SpO2: [96 %-100 %] Intake/Output Summary (Last 24 hours) at 01/06/2024 1224 Last data filed at 01/06/2024 0400 Gross per 24 hour Intake 366 ml Output 0 ml Net 366 ml Patient Vitals for the past 168 hrs: Weight 01/04/24 0050 99.8 kg (220 lb) Body mass index is 37.76 kg/m??. Physical Exam GEN - awake, alert and oriented times three HEENT - Oropharynx moist without lesions Lungs - cta bilat, good resp effort Heart - RRR, S1,S2, no murmur, gallop or rub Abdomen - nt, nd, normal active bowel sounds, no rebound or guarding Extremities - No clubbing, cyanosis or edema, left foot - dressing clean dry and in place Studies reviewed in eDH. Remarkable for the following: LABS: Last 3 wbc, hgb, hct plt Recent Labs 01/06/24 0511 01/05/24 0818 01/04/24 0341 WBC 5.83 6.56 6.37 HGB 10.0* 9.8* 10.5* HCT 31.9* 31.1* 33.2* PLATELET 133* 151 172 Last 3 Lytes Recent Labs 01/06/24 0511 01/05/24 0818 01/04/24 0341 NA 137 135 134* K 4.6 6.3* 5.1* CL 98 95* 94* CO2 24 BUN 39* 74* 62* CREATININE 8.15* 11.45* 9.47* Last 3 LFTs No results for input(s): AST, ALT, ALKPHOS, BILITOT, BILIDIR in the last 7068hours. FSBG Trend Recent Labs 01/06/24 1138 01/06/24 0741 01/05/24 2114 01/05/24 1559 01/05/24 1143 01/04/24 2058 01/04/24 1749 01/04/24 1657 01/04/24 1126 01/04/24 0610 POCGLU 145 104 155 166 127 209* 155 137 181 197 MICRO: No results for input(s): URINECULTURE in the last 720 hours. Recent Labs 01/04/24 1551 GRAMSTAIN Few neutrophils No microorganisms seen No results for input(s): BLOODCX in the last 720 hours. ECG: No results for input(s): DIAGLINE, QTCCALC in the last 720 hours. VASCULAR: Recent Labs 01/04/24 0319 VBTEXTRPT Department: Vascular Surgery Lab Patient: [id number] (SINDI RUDOLPH) CPT: 10563 Referring Physician: LARISA GEORGE Phone: Indications: Gangrene 5th digit, right foot; ? PAD Diabetes mellitus: Yes Findings: Right Pressure (mm Hg) JOSÉ MIGUEL Waveform TBI Brachial Artery 148 Common Femoral Artery Triphasic Popliteal Artery Triphasic Dorsalis Pedis (Ankle) Artery 187 1.26 Triphasic Posterior Tibial (Ankle) Artery 160 1.08 Triphasic Great Toe 119 0.80 Left Pressure (mm Hg) JOSÉ MIGUEL Waveform TBI Common Femoral Artery Triphasic Popliteal Artery Triphasic Dorsalis Pedis (Ankle) Artery 169 1.14 Biphasic-Rev Posterior Tibial (Ankle) Artery 232 1.57 Triphasic Great Toe 126 0.85 Interpretation: RIGHT: No significant lower extremity arterial [...] on Doppler waveforms and toe pressures. Comparison: No previous study in our vascular lab database for comparison. Electronically Signed by: GERMAN GONZALES on 2024-01-04 11:08:04 AM End of Report IMAGING: Results for orders placed or performed during the hospital encounter of 01/04/24 MRI Foot wwo Contrast Right (Exam End: 01/04/2024 5:40 AM) Result Value WORKSTATION ID [id number] Impression 1. Deep ulceration of 5th toe distal phalange exposing the underlying bone with acute osteomyelitis 5th distal and proximal phalanges. No osteomyelitis of 5th metatarsal 2. Superficial plantar ulceration underneath 1st metatarsal head with no evidence of osteomyelitis of 1st metatarsal. 3. Subcutaneous edema/enhancement surrounding above-mentioned ulcerations and dorsum foot suggestive of cellulitis. No organized fluid collection or abscess. 4. Midfoot osteoarthropathy. Thank you for letting us participate in the care of this patient. If you are a health care provider and have any questions regarding this report, please contact the number below. For patients who have questions please contact the health care companion that requested your imaging first. Electronically signed by: Caden Kemp MD, [facility] ([phone]), at 01/04/2024 8:31 AM XR Foot Min 3 views Right (Generic) (Exam End: 01/04/2024 3:55 AM) Result Value WORKSTATION ID [id number] Impression FINDINGS/IMPRESSION: * Mild osteolytic appearance of the tuft of the fifth digit distal phalanx, could be sequela of osteomyelitis in appropriate clinical setting (as clinically warranted, could consider MRI evaluation barring contraindication). * Moderately advanced osteoarthropathy involving the midfoot, predominantly medially. Arteriovascular calcifications. Please note, this examination was ordered, performed, and interpreted in a STAT/emergency setting. Thank you for letting us participate in the care of this patient. If you are a health care provider and have any questions regarding this report, please contact the number below. For patients who have questions please contact the health care companion that requested your imaging first. Electronically signed by: Huang Hernandez MD, [facility] ([phone]), at 01/04/2024 4:33 AM XR Foot Min 3 views Right (Generic) (Exam End: 01/04/2024 7:42 PM) Result Value WORKSTATION ID [id number] Impression 1. Interval partial fifth ray resection. Exam to serve as baseline for future comparison. 2. No acute osseous abnormality. Thank you for letting us participate in the care of this patient. If you are a health care provider and have any questions regarding this report, please contact the number below. For patients who have questions please contact the health care companion that requested your imaging first. Electronically signed by: Aaron Charles MD, [facility] ([phone]), at 01/05/2024 2:34 AM Assessment & Plan: Sindi Rudolph is a 63 y.o. 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 - Staph aureus also noted in bone culture. -ID consulted per ortho request for possible need of OPAT -iv antibiotics at discharge -Tylenol for fevers -Trend inflammatory markers -Appreciate orthopedic recommendations - WBAT forefoot offloading shoe - wound check and suture removal in 2-3 weeks #HTN #HLD -Amlodipine 10 mg daily -Atorvastatin 40 mg daily #ESRD on HD // - plan for HD today -Sevelamer 1600 mg TID #T2DM -Lantus 20 units daily -6 units 3 times daily -SSL #Neuropathy -Gabapentin 300 mg 3 times daily #BPH -Flomax 0.4 mg nightly # Anxiety/depression -Sertraline 25 mg daily #Routine --DVT ppx: heparin --GI ppx: --Diet No diet orders on file --Dispo: --Code status: Attempt Cardiopulmonary Resuscitation - Inpatient Team Pager( Coverage 22/11): [phone] PCP: Kimani Leger MD [phone] Attestation: IPI Certification I certify that I am a D-H credentialed attending provider with admitting privileges and that the patient meets or has met medical necessity to require an inpatient IPI level of care meeting a minimumof two midnights or is on the [facility] inpatient only procedure list (status C) due to: toe osteo Jesús Muñiz MD 01/06/2024 * Ender Giang MD - 01/06/2024 5:55 AM EDT ORTHOPAEDIC SURGERY INPATIENT PROGRESS NOTE Patient Name: Sindi Rudolph Age: 63 y.o. Surgery/Issue: R 5th toe necrotic and plantar ulcer on 01/03, s/p partial R 5th ray resection 01/03 Attending: Dr. Wesley Date of surgery: 01/04/2024 SUBJECTIVE / INTERVAL HISTORY: Tmax 100 yesterday evening, otherwise vitals stable HGB 10 (9.8), no leukocytosis AM BMP pending, yesterday hyperkalemic to 6.3 with Cr 11.45, BUN 74 Pain is well controlled. Cultures now with rare Kelbsiella oxytoca and Acetinobacter. Needs to work with PT today before he can receive offloading shoe Denies fevers or chills. No new numbness or tingling. FOCUSED REVIEW OF SYSTEMS: as above. Active Hospital Problems Diagnosis Osteomyelitis 5th toe R, s/p partial 5th ray resection [place] 01/04/24 Resolved Hospital Problems No resolved problems to display. 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) Hyperopia Acute angle-closure glaucoma of right eye HTN (hypertension) GERD (gastroesophageal reflux disease) Proliferative diabetic retinopathy, both eyes MEDICATIONS: heparin (porcine) (1,000 units/mL) injection 1,000-10,000 Units amLODIPine (Norvasc) tablet 10 mg aspirin tablet 325 mg bumetanide (Bumex) tablet 2 mg gabapentin (Neurontin) capsule 300 mg sertraline (Zoloft) tablet 50 mg sevelamer carbonate (Renvela) tablet 1,600 mg sodium chloride 0.9 % (flush) (BD PosiFlush Normal Saline 0.9) flush 5 mL sodium chloride 0.9 % (flush) (BD PosiFlush Normal Saline 0.9) flush 5-20 mL lidocaine (Xylocaine) 1% (10 mg/mL) injection 3 mg melatonin tablet 3 mg heparin (porcine) (5,000 units/1 mL) subcutaneous injection 5,000 Units acetaminophen (Tylenol) tablet 650 mg polyethylene glycoL (Miralax) packet 17 g AND bisacodyL (Dulcolax) suppository 10 mg AND bisacodyl EC (Dulcolax) tablet 10 mg AND lactulose (Chronulac) (0.67 gram/mL) oral liquid 20 g AND lactulose (Chronulac) (0.67 gram/mL) oral liquid 20 g AND magnesium citrate oral liquid 296mL AND Tap water enema ondansetron ODT (Zofran-ODT) disintegrating tablet 4 mg OR ondansetron (pf) (Zofran) (2 mg/mL) injection 4 mg glucose (Glutose) 40% oral geL OR dextrose 10% infusion OR glucagon (Glucagen) (1 mg/mL) injection solution 1 mg insulin lispro (HumaLOG;Admelog) (100 unit/mL) subcutaneous injection vial 0-8 Units insulin glargine-ygfn (Semglee) (100 unit/mL) subcutaneous injection vial 30 Units piperacillin-tazobactam (Zosyn) 3.375 g vial attach to sodium chloride 0.9% 50 mL Mini-Bag Plus vancomycin- intermittent dosing per levels sodium chloride 0.9% infusion POCT Fingerstick Glucose AND insulin lispro (HumaLOG;Admelog) (100 unit/mL) subcutaneous injection vial 1-4 Units OBJECTIVE: Temp: [36.1 ??C (97 ??F)-37.8 ??C (100 ??F)] Heart Rate: [63-90] Resp: [16-20] BP: (131-182)/(57-88) Intake/Output Summary (Last 24 hours) at 01/06/2024 0555 Last data filed at 01/06/2024 0400 Gross per 24 hour Intake 366 ml Output 1800 ml Net -1434 ml Body mass index is 37.76 kg/m??. PE: General: awake/alert, responds to questions CV: RRR assessed peripherally Resp: Breathing comfortably on CPAP RLE: Apryl wrap in place, dressing c/d/i Sensory diminished to light touch in exposed toes (baseline neuropathy) Motor intact to FHL/EHL/TA, f/e of exposed toes Brisk capillary refill distally, foot warm/well-perfused Lab Results Component Value Date NA 135 01/05/2024 NA 137 06/17/2020 K 6.3 (CRIT) 01/05/2024 K 4.2 01/25/2022 CL 95 (L) 01/05/2024 CL 93 (L) 06/17/2020 CO2 23 01/05/2024 CO2 35 (H) 06/17/2020 BUN 74 (H) 01/05/2024 BUN 15 06/17/2020 CREATININE 11.45 (CRIT) 01/05/2024 CREATININE 2.44 (H) 06/17/2020 GLUCOSE 185 01/05/2024 GLUCOSE 258 (H) 06/17/2020 GLUCFASTING 156 (H) 08/02/2019 GLUCFASTING 247 07/18/2012 CALCIUM 8.3 (L) 01/05/2024 CALCIUM 9.6 06/17/2020 Lab Results Component Value Date WBC 5.83 01/06/2024 HGB 10.0 (L) 01/06/2024 HCT 31.9 (L) 01/06/2024 MCV 98.2 (H) 01/06/2024 PLATELET 133 (L) 01/06/2024 Lab Results Component Value Date INR 1.0 02/06/2020 ASSESSMENT / PLAN: Sindi Rudolph is a 63 y.o. male 2 Days Post-Op s/p R 5th toe necrotic and plantar ulcer on 01/03, s/p partial R 5th ray resection 01/03. Patient is afebrile with stable vital signs this morning. OR cultures now with rare klebsiella and acetinobacter. This was a culture that included distal metatarsal. Based on his MRI findings, bony resection was completed well proximal to region of osteomyelitis (resection through middle of 5th MT, osteomyelitis stopped within the proximal phalanx). However, given positive cultures, would recommend treating for osteomyelitis of this region out of precaution. Plan for today is working with PT so that he may obtain his forefoot offloading shoe. This is for wound protection. Appreciate rest of care per primary team. Activity: WBAT RLE in hard soled/forefoot offloading shoe DVT prophylaxis: per primary, recommend [id number] BID Closure: Sutures (to be removed at Orthopaedic follow-up appointment) (out ~01/24) Dressing: xeroform, 4x4, kerlix, APRYL, change 01/10 (or prior to d/c), then keep until f/u Orthopaedic surgery will sign off and continue to follow remotely to ensure he can mobilize and receives his forefoot offloader. He has discharge instructions and follow-up scheduled. Please page [phone] with questions or concerns. Ender Giang MD 01/06/2024 Future Appointments Date Time Provider Department Center 01/27/2024 3:30 PM Faye Valle, [place] [facility] [place] attestation - Thania Wesley MD - 01/06/2024 6:41 AM EDT Patient seen and examined. Agree with resident note. Emerald Wesley MD Department of Orthopaedics 01/06/24 * Ivon Blanchard RCP - 01/06/2024 4:55 AM EDT Respiratory Therapy NIV Note NIV Settings: NIV Mode: CPAP (AirCurve) CPAP 10 3L O2 bleed in Assessment: Patient compliant with nocturnal CPAP overnight. Ivon Blanchard RCP * Carmelina Giraldo MD - 01/05/2024 6:44 PM EDT Hospital Medicine Attending Daily Progress Note Admit Date: 01/04/2024 Hospital Day 0 days Active Hospital Problems Diagnosis Osteomyelitis 5th toe R, s/p partial 5th ray resection [place] 01/04/24 Resolved Hospital Problems No resolved problems to display. PMH 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) Hyperopia Acute angle-closure glaucoma of right eye HTN (hypertension) GERD (gastroesophageal reflux disease) Proliferative diabetic retinopathy, both eyes Inpatient Medications: Scheduled amLODIPine 10 mg Oral Daily aspirin 325 mg Oral Daily bumetanide 2 mg Oral BID gabapentin 300 mg Oral TID sertraline 50 mg Oral Daily sevelamer carbonate 1,600 mg Oral TID WC sodium chloride 0.9 % (flush) 5 mL Intravenous BID heparin (porcine) 5,000 Units Subcutaneous Q8H RICHELLE insulin lispro 0-8 Units Subcutaneous TID WC insulin glargine (Lantus;Semglee) (100 unit/mL) subcutaneous injection 30 Units Subcutaneous Daily piperacillin-tazobactam 3.375 g Intravenous Q12H [START ON 01/05/2024] insulin lispro 1-4 Units Subcutaneous TID AC Continuous infusions: PRN: sodium chloride 0.9 % (flush), lidocaine, melatonin, acetaminophen, polyethylene glycoL (MIRALAX) oral powder AND bisacodyL AND bisacodyl EC AND lactulose AND lactulose AND magnesium citrate AND Tap water enema, ondansetron ODT OR ondansetron, glucose 40% oral geL OR dextrose OR glucagon, vancomycin- intermittent dosing per levels, sodium chloride 0.9% Interval History: s/p OR yesterday, tolerated well. Pain control - Denies sob, n/v, diarrhea, chestpain Physical Exam Vitals Range last 24 hrs Temperature Temp: [36.4 ??C (97.5 ??F)-37 ??C (98.6 ??F)] Heart Rate Heart Rate: [69-86] Blood Pressure BP: (133-167)/(64-75) Respiratory Rate Resp: [8-19] SpO2 SpO2: [97 %-100 %] Intake/Output Summary (Last 24 hours) at 01/04/20242034 Last data filed at 01/04/2024 1814 Gross per 24 hour Intake 239.95 ml Output 5 ml Net 234.95 ml Patient Vitals for the past 168 hrs: Weight 01/04/24 0050 99.8 kg (220 lb) Body mass index is 37.76 kg/m??. Physical Exam GEN - awake, alert and oriented times three HEENT - Oropharynx moist without lesions Lungs - cta bilat, good resp effort Heart - RRR, S1,S2, no murmur, gallop or rub Abdomen - nt, nd, normal active bowel sounds, no rebound or guarding Extremities - No clubbing, cyanosis or edema, left foot - dressing clean dry and in place Studies reviewed in eDH. Remarkable for the following: LABS: Last 3 wbc, hgb, hct plt Recent Labs 01/04/24 0341 WBC 6.37 HGB 10.5* HCT 33.2* PLATELET 172 Last 3 Lytes Recent Labs 01/04/24 0341 NA 134* K 5.1* CL 94* CO2 24 BUN 62* CREATININE 9.47* Last 3 LFTs No results for input(s): AST, ALT, ALKPHOS, BILITOT, BILIDIR in the last 7068hours. FSBG Trend Recent Labs 01/04/24 1749 01/04/24 1657 01/04/24 1126 01/04/24 0610 POCGLU 155 137 181 197 MICRO: No results for input(s): URINECULTURE in the last 720 hours. Recent Labs 01/04/24 1551 GRAMSTAIN Few neutrophils No microorganisms seen No results for input(s): BLOODCX in the last 720 hours. ECG: No results for input(s): DIAGLINE, QTCCALC in the last 720 hours. VASCULAR: Recent Labs 01/04/24 0319 VBTEXTRPT Department: Vascular Surgery Lab Patient: [id number] (SINDI RUDOLPH) CPT: 30196 Referring Physician: LARISA GEORGE Phone: Indications: Gangrene 5th digit, right foot; ? PAD Diabetes mellitus: Yes Findings: Right Pressure (mm Hg) JOSÉ MIGUEL Waveform TBI Brachial Artery 148 Common Femoral Artery Triphasic Popliteal Artery Triphasic Dorsalis Pedis (Ankle) Artery 187 1.26 Triphasic Posterior Tibial (Ankle) Artery 160 1.08 Triphasic Great Toe 119 0.80 Left Pressure (mm Hg) JOSÉ MIGUEL Waveform TBI Common Femoral Artery Triphasic Popliteal Artery Triphasic Dorsalis Pedis (Ankle) Artery 169 1.14 Biphasic-Rev Posterior Tibial (Ankle) Artery 232 1.57 Triphasic Great Toe 126 0.85 Interpretation: RIGHT: No significant lower extremity arterial [...] on Doppler waveforms and toe pressures. Comparison: No previous study in our vascular lab database for comparison. Electronically Signed by: GERMAN GONZALES on 2024-01-04 11:08:04 AM End of Report IMAGING: Results for orders placed or performed during the hospital encounter of 01/04/24 MRI Foot wwo Contrast Right (Exam End: 01/04/2024 5:40 AM) Result Value WORKSTATION ID [id number] Impression 1. Deep ulceration of 5th toe distal phalange exposing the underlying bone with acute osteomyelitis 5th distal and proximal phalanges. No osteomyelitis of 5th metatarsal 2. Superficial plantar ulceration underneath 1st metatarsal head with no evidence of osteomyelitis of 1st metatarsal. 3. Subcutaneous edema/enhancement surrounding above-mentioned ulcerations and dorsum foot suggestive of cellulitis. No organized fluid collection or abscess. 4. Midfoot osteoarthropathy. Thank you for letting us participate in the care of this patient. If you are a health care provider and have any questions regarding this report, please contact the number below. For patients who have questions please contact the health care companion that requested your imaging first. Foot Min 3 views Right (Generic) (Exam End: 01/04/2024 3:55 AM) Result Value WORKSTATION ID [id number] Impression FINDINGS/IMPRESSION: * Mild osteolytic appearance of the tuft of the fifth digit distal phalanx, could be sequela of osteomyelitis in appropriate clinical setting (as clinically warranted, could consider MRI evaluation barring contraindication). * Moderately advanced osteoarthropathy involving the midfoot, predominantly medially. Arteriovascular calcifications. Please note, this examination was ordered, performed, and interpreted in a STAT/emergency setting. Thank you for letting us participate in the care of this patient. If you are a health care provider and have any questions regarding this report, please contact the number below. For patients who have questions please contact the health care companion that requested your imaging first. Electronically signed by: Huang Hernandez MD, [facility] ([phone]), at 01/04/2024 4:33 AM Assessment & Plan: Sindi Rudolhp is a 63 y.o. 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 myelitis with gangrenous diabetic foot ulcers on the right foot s/p fifth toe amp on 01/04/24 # Gangrenous foot ulcer # Osteomyelitis of the 5th toe s/p amp - vancomycin -Zosyn - follow final bone cx results - if negative can likely transition to a short course of oral abx totx cellulitis -Tylenol for fevers -Trend inflammatory markers -Appreciate orthopedic recommendations - WBAT forefoot offloading shoe - wound check and suture removal in 2-3 weeks #HTN #HLD -Amlodipine 10 mg daily -Atorvastatin 40 mg daily #ESRD on HD // - plan for HD today -Sevelamer 1600 mg TID #T2DM -Lantus 20 units daily -6 units 3 times daily -SSL #Neuropathy -Gabapentin 300 mg 3 times daily #BPH -Flomax 0.4 mg nightly # Anxiety/depression -Sertraline 25 mg daily #Routine --DVT ppx: heparin --GI ppx: --Diet No diet orders on file --Dispo: --Code status: Attempt Cardiopulmonary Resuscitation - Inpatient Team Pager( Coverage 22/11): #[phone] PCP: Kimani Leger MD [phone] Attestation: IPI Certification I certify that I am a D-H credentialed attending provider with admitting privileges and that the patient meets or has met medical necessity to require an inpatient IPI level of care meeting a minimumof two midnights or is on the [facility] inpatient only procedure list (status C) due to: saundra Giraldo MD 01/04/2024 * Destinee Fraga RN - 01/05/2024 5:46 PM EDT OUTCOME EVALUATION NOTE: OUTCOME SUMMARY: Patient A&Ox4, VSS on 2L (Baselines). Denies nausea/vomiting, CP, SOB. Pain controlled w/ scheduled and PRN medications, see MAR. Dressing to R-foot CDI. LBM 01/04. Patient sleeping in between care. PLAN MOVING FORWARD: Pain control Mobilize D/C planning INDIVIDUALIZED FALL PREVENTION INTERVENTIONS: Patient-specific fall risk factors per assessment: [current deficits]: Hospital environment, Pain, Medications Assistance [level of assistance required for transfers and ambulation]: Awaiting PT/OT eval Surveillance [continuous indirect monitoring]: Hourly rounding, Masimo, Nursing knowledge exchange,Call doan within reach, Bed alarm Destinee Fraga RN * Wily Bee - 01/05/2024 4:00 PM EDT Knee Bolter Encounter Note Patient Name: Sindi Rudolph : [id number] MR#: [id number] Admit Date: 01/04/2024 12:41 AM Hospital Day 1 day Narrative:Visited to introduce and assess acceptance of Knee Bolter services. Pt was not available and I will visit another time. Assessment: Intervention and Outcome Follow-up: Time in Direct Care: Wily Bee 01/05/2024 * Destinee Fraga RN - 01/05/2024 3:05 PM EDT 1505: Provider messaged via secure chat Pt. has insulin orders ACHS SSI but also a CHO count. Can you please change his renal diet to a renal/carb counting diet so that we can see the carbs for eachmeal on the dietary ticket to then determine how much insulin to give. It is difficult to call dietary each time to find out how many carbs have been sent on each tray. Please. 1530: Provider returned message, to place orders. * Destinee Fraga RN - 01/05/2024 1:45 PM EDT 1345: Provider paged [phone] [email or web address]. Can you make pt. renal/diabetic diet so carbs show on meal ticket? * Cynthia Gerber MD - 01/05/2024 1:29 PM EDT NEPHROLOGY PROGRESS NOTE Patient seen and examined on dialysis. Clinical and laboratory data reviewed. Stable treatment. No issues with dialysis or access. A/P: ESRD - Patient's usual schedule is [facility], but he is off schedule today because of surgery yesterday. Unless I hear otherwise from the team, I will plan to run him Tuesday, then return to [facility] next week. If he is being discharged tomorrow, I need to know ZOILA so I can do at least a short treatment tomorrow prior to discharge, unless he can get to his home unit in time for dialysis there. Anemia - Hgb is at goal. BMM - Calcium is at goal. Continue sevelamer. Metabolics - Potassium is in range. Cynthia Gerber MD Nephrology Pager: [phone] * Destinee Fraga RN - 01/05/2024 7:38 AM EDT Pt. Transferred off unit to HD via bed, IVF infusing per eMar, Pt. A&Ox4 on 2L NC (baseline), appears in NAD. * Toi Dobson IV, - 01/05/2024 4:14 AM EDT ORTHOPAEDIC SURGERY INPATIENT PROGRESS NOTE Patient Name: Sindi Rudolph Age: 63 y.o. Surgery/Issue: R 5th toe necrotic and plantar ulcer on 01/03, s/p partial R 5th ray resection 01/03 Attending: Dr. Wesley Date of surgery: 01/04/2024 SUBJECTIVE / INTERVAL HISTORY: AFVSS. On CPAP during AM rounds. Pain is well controlled. Got HD per his baseline schedule yesterday morning. OR cultures NGTD, remains on Vanc/Zosyn pending speciation. Denies fevers or chills. No new numbness or tingling. FOCUSED REVIEW OF SYSTEMS: as above. Active Hospital Problems Diagnosis Osteomyelitis 5th toe R, s/p partial 5th ray resection Gaby 01/04/24 Resolved Hospital Problems No resolved problems to display. 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) Hyperopia Acute angle-closure glaucoma of right eye HTN (hypertension) GERD (gastroesophageal reflux disease) Proliferative diabetic retinopathy, both eyes MEDICATIONS: amLODIPine (Norvasc) tablet 10 mg aspirin tablet 325 mg bumetanide (Bumex) tablet 2 mg gabapentin (Neurontin) capsule 300 mg sertraline (Zoloft) tablet 50 mg sevelamer carbonate (Renvela) tablet 1,600 mg sodium chloride 0.9 % (flush) (BD PosiFlush Normal Saline 0.9) flush 5 mL sodium chloride 0.9 % (flush) (BD PosiFlush Normal Saline 0.9) flush 5-20 mL lidocaine (Xylocaine) 1% (10 mg/mL) injection 3 mg melatonin tablet 3 mg heparin (porcine) (5,000 units/1 mL) subcutaneous injection 5,000 Units acetaminophen (Tylenol) tablet 650 mg polyethylene glycoL (Miralax) packet 17 g AND bisacodyL (Dulcolax) suppository 10 mg AND bisacodyl EC (Dulcolax) tablet 10 mg AND lactulose (Chronulac) (0.67 gram/mL) oral liquid 20 g AND lactulose (Chronulac) (0.67 gram/mL) oral liquid 20 g AND magnesium citrate oral liquid 296mL AND Tap water enema ondansetron ODT (Zofran-ODT) disintegrating tablet 4 mg OR ondansetron (pf) (Zofran) (2 mg/mL) injection 4 mg glucose (Glutose) 40% oral geL OR dextrose 10% infusion OR glucagon (Glucagen) (1 mg/mL) injection solution 1 mg insulin lispro (HumaLOG;Admelog) (100 unit/mL) subcutaneous injection vial 0-8 Units insulin glargine-ygfn (Semglee) (100 unit/mL) subcutaneous injection vial 30 Units piperacillin-tazobactam (Zosyn) 3.375 g vial attach to sodium chloride 0.9% 50 mL Mini-Bag Plus vancomycin- intermittent dosing per levels sodium chloride 0.9% infusion POCT Fingerstick Glucose AND insulin lispro (HumaLOG;Admelog) (100 unit/mL) subcutaneous injection vial 1-4 Units OBJECTIVE: Temp: [36.3 ??C (97.3 ??F)-37 ??C (98.6 ??F)] Heart Rate: [69-74] Resp: [8-19] BP: (126-167)/(50-71) Intake/Output Summary (Last 24 hours) at 01/05/2024 0414 Last data filed at 01/05/2024 0000 Gross per 24 hour Intake 339.95 ml Output 5 ml Net 334.95 ml Body mass index is 37.76 kg/m??. PE: General: awake/alert, responds to questions CV: RRR assessed peripherally Resp: Breathing comfortably on CPAP RLE: Apryl wrap in place, dressing c/d/i Sensory diminished to light touch in exposed toes (baseline neuropathy) Motor intact to FHL/EHL/TA, f/e of exposed toes Brisk capillary refill distally, foot warm/well-perfused Lab Results Component Value Date NA 134 (L) 01/04/2024 NA 137 06/17/2020 K 5.1 (H) 01/04/2024 K 4.2 01/25/2022 CL 94 (L) 01/04/2024 CL 93 (L) 06/17/2020 CO2 24 01/04/2024 CO2 35 (H) 06/17/2020 BUN 62 (H) 01/04/2024 BUN 15 06/17/2020 CREATININE 9.47 (H) 01/04/2024 CREATININE 2.44 (H) 06/17/2020 GLUCOSE 211 (H) 01/04/2024 GLUCOSE 258 (H) 06/17/2020 GLUCFASTING 156 (H) 08/02/2019 GLUCFASTING 247 07/18/2012 CALCIUM 8.8 01/04/2024 CALCIUM 9.6 06/17/2020 Lab Results Component Value Date WBC 6.37 01/04/2024 HGB 10.5 (L) 01/04/2024 HCT 33.2 (L) 01/04/2024 MCV 96.8 (H) 01/04/2024 PLATELET 172 01/04/2024 Lab Results Component Value Date INR 1.0 02/06/2020 IMAGING: Post-op XR foot in progress ASSESSMENT / PLAN: Sindi Rudolph is a 63 y.o. male 1 Day Post-Op s/p R 5th toe necrotic and plantar ulcer on 01/03, s/p partial R 5th ray resection 01/03. Patient is afebrile with stable vital signsthis morning. OR cultures have remained NGTD, remains on Vanc/Zosyn. Recommend a dedicated PT session today for trial of ambulation with the use of a hard-soled shoe. Will continued to follow up cultures, appreciate ID recs pending speciation. Appreciate rest of care per primary team. Activity: WBAT RLE in hard soled shoe DVT prophylaxis: per primary, recommend [id number] BID Closure: Sutures (to be removed at Orthopaedic follow-up appointment) (out ~01/24) Dressing: xeroform, 4x4, kerlix, APRYL, change 01/10 (or prior to d/c), then keep until f/u Toi Dobson IV, DO 01/05/2024 No future appointments. Associated attestation - Thania Wesley MD - 01/06/2024 6:38 AM EDT Patient seen and examined. Agree with resident note. Emerald Wesley MD Department of Orthopaedics 01/06/24 * Anamika Cam MD - 01/04/2024 8:00 PM EDT ORTHOPAEDIC SURGERY INPATIENT PROGRESS NOTE Patient Name: Sindi Rudolph Age: 63 y.o. Surgery/Issue: R 5th toe necrotic and plantar ulcer on 01/03, s/p partial R 5th ray resection 01/03 Attending: Dr. Wesley Date of surgery: 01/04/2024 SUBJECTIVE / INTERVAL HISTORY: Pain well controlled. Patient denies chest pain, shortness of breath, nausea, vomiting, numbness/weakness. FOCUSED REVIEW OF SYSTEMS: as above. Active Hospital Problems Diagnosis Osteomyelitis 5th toe R, s/p partial 5th ray resection Gaby 01/04/24 Resolved Hospital Problems No resolved problems to display. 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) Hyperopia Acute angle-closure glaucoma of right eye HTN (hypertension) GERD (gastroesophageal reflux disease) Proliferative diabetic retinopathy, both eyes MEDICATIONS: amLODIPine (Norvasc) tablet 10 mg aspirin tablet 325 mg bumetanide (Bumex) tablet 2 mg gabapentin (Neurontin) capsule 300 mg sertraline (Zoloft) tablet 50 mg sevelamer carbonate (Renvela) tablet 1,600 mg sodium chloride 0.9 % (flush) (BD PosiFlush Normal Saline 0.9) flush 5 mL sodium chloride 0.9 % (flush) (BD PosiFlush Normal Saline 0.9) flush 5-20 mL lidocaine (Xylocaine) 1% (10 mg/mL) injection 3 mg melatonin tablet 3 mg heparin (porcine) (5,000 units/1 mL) subcutaneous injection 5,000 Units acetaminophen (Tylenol) tablet 650 mg polyethylene glycoL (Miralax) packet 17 g AND bisacodyL (Dulcolax) suppository 10 mg AND bisacodyl EC (Dulcolax) tablet 10 mg AND lactulose (Chronulac) (0.67 gram/mL) oral liquid 20 g AND lactulose (Chronulac) (0.67 gram/mL) oral liquid 20 g AND magnesium citrate oral liquid 296mL AND Tap water enema ondansetron ODT (Zofran-ODT) disintegrating tablet 4 mg OR ondansetron (pf) (Zofran) (2 mg/mL) injection 4 mg glucose (Glutose) 40% oral geL OR dextrose 10% infusion OR glucagon (Glucagen) (1 mg/mL) injection solution 1 mg insulin lispro (HumaLOG;Admelog) (100 unit/mL) subcutaneous injection vial 0-8 Units insulin glargine-ygfn (Semglee) (100 unit/mL) subcutaneous injection vial 30 Units piperacillin-tazobactam (Zosyn) 3.375 g vial attach to sodium chloride 0.9% 50 mL Mini-Bag Plus vancomycin- intermittent dosing per levels sodium chloride 0.9% infusion POCT Fingerstick Glucose AND [START ON 01/05/2024] insulin lispro (HumaLOG;Admelog) (100 unit/mL)subcutaneous injection vial 1-4 Units OBJECTIVE: Temp: [36.4 ??C (97.5 ??F)-37 ??C (98.6 ??F)] Heart Rate: [69-86] Resp: [8-19] BP: (133-167)/(64-75) Intake/Output Summary (Last 24 hours) at 01/04/2024 2148 Last data filed at 01/04/20241999 Gross per 24 hour Intake 339.95 ml Output 5 ml Net 334.95 ml Body mass index is 37.76 kg/m??. PE: General: awake/alert, responds to questions CV: RRR assessed peripherally Resp: Breathing comfortably on 2L NC RLE: Dressing c/d/i Sensory diminished to light touch in R toes Motor intact to FHL/EHL/TA Brisk capillary refill distally, foot warm/well-perfused Lab Results Component Value Date NA 134 (L) 01/04/2024 NA 137 06/17/2020 K 5.1 (H) 01/04/2024 K 4.2 01/25/2022 CL 94 (L) 01/04/2024 CL 93 (L) 06/17/2020 CO2 24 01/04/2024 CO2 35 (H) 06/17/2020 BUN 62 (H) 01/04/2024 BUN 15 06/17/2020 CREATININE 9.47 (H) 01/04/2024 CREATININE 2.44 (H) 06/17/2020 GLUCOSE 211 (H) 01/04/2024 GLUCOSE 258 (H) 06/17/2020 GLUCFASTING 156 (H) 08/02/2019 GLUCFASTING 247 07/18/2012 CALCIUM 8.8 01/04/2024 CALCIUM 9.6 06/17/2020 Lab Results Component Value Date WBC 6.37 01/04/2024 HGB 10.5 (L) 01/04/2024 HCT 33.2 (L) 01/04/2024 MCV 96.8 (H) 01/04/2024 PLATELET 172 01/04/2024 Lab Results Component Value Date INR 1.0 02/06/2020 IMAGING: Post-op XR foot in progress ASSESSMENT / PLAN: Sindi Rudolph is a 63 y.o. male Day of Surgery s/p R 5th toe necrotic and plantar ulcer on 01/03, s/p partial R 5th ray resection 01/03. Doing well post-operatively. Discharge perprimary service. Activity: WBAT RLE in hard soled shoe DVT prophylaxis: per primary, recommend [id number] BID Closure: Sutures (to be removed at Orthopaedic follow-up appointment) (out ~01/24) Dressing: xeroform, 4x4, kerlix, APRYL, change 01/10 (or prior to d/c), then keep until f/u Anamika Cam MD 01/04/2024 No future appointments. Associated attestation - Thania Wesley MD - 01/06/2024 6:35 AM EDT Patient seen and examined. Agree with resident note. Emerald Wesley MD Department of Orthopaedics 01/06/24 * Jennie Curiel MD - 01/04/2024 6:43 PM EDT HOSPITAL MEDICINE ADDENDUM NOTE: Please see earlier note by Dr. Gasca. 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 Patient carries moderate to high risk for cardiopulmonary complications but no need for other pre-operative testing. Plan discussed with patient, including risks and benefits of procedure. He voiced understanding andwishes to proceed. PLAN: OR per ortho Continue IV antibiotics and await cultures HD in AM - discussed with nephrology Order CPAP - NIV and O2 - to keep sat > 88% Jennie Curiel MD Pager [phone] * Destinee Fraga RN - 01/04/2024 6:27 PM EDT 1827: Provider paged [phone] Lucinda Can you d/c the q4 insulin now that pt. has diet. * Valery Weber RN - 01/04/2024 5:11 PM EDT 1711 Break coverage for PERNELL Howell. Pt awaiting for transport to unit. VSS. No needs made known at this time. * Lynda Samuels RN - 01/04/2024 5:06 PM EDT Pt awake, conversing well. Pradeep po sips. States he is comfortable. Report destinee on L4WC. * Destinee Fraga RN - 01/04/2024 4:52 PM EDT Telephone report received from PACU, all questions and concerns addressed at this time. * Destinee Fraga RN - 01/04/2024 2:33 PM EDT Telephone report received from ED RN. All questions and concerns addressed at this time. * Devon Perez MD - 01/04/2024 7:51 AM EDT ORTHOPAEDIC SURGERY INPATIENT PROGRESS NOTE Patient Name: Sindi Rudolph Age: 63 y.o. Surgery/Issue: R fifth toe osteomyelitis Attending: Dr. Bergman SUBJECTIVE / INTERVAL HISTORY: Pain well controlled. Patient denies chest pain, shortness of breath, nausea, vomiting, numbness/weakness. FOCUSED REVIEW OF SYSTEMS: as above. Active Hospital Problems Diagnosis Osteomyelitis Resolved Hospital Problems No resolved problems to display. 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) Hyperopia Acute angle-closure glaucoma of right eye HTN (hypertension) GERD (gastroesophageal reflux disease) Proliferative diabetic retinopathy, both eyes MEDICATIONS: amLODIPine (Norvasc) tablet 10 mg aspirin tablet 325 mg bumetanide (Bumex) tablet 2 mg gabapentin (Neurontin) capsule 300 mg sertraline (Zoloft) tablet 50 mg sevelamer carbonate (Renvela) tablet 1,600 mg sodium chloride 0.9 % (flush) (BD PosiFlush Normal Saline 0.9) flush 5 mL sodium chloride 0.9 % (flush) (BD PosiFlush Normal Saline 0.9) flush 5-20 mL lidocaine (Xylocaine) 1% (10 mg/mL) injection 3 mg melatonin tablet 3 mg heparin (porcine) (5,000 units/1 mL) subcutaneous injection 5,000 Units acetaminophen (Tylenol) tablet 650 mg polyethylene glycoL (Miralax) packet 17 g AND bisacodyL (Dulcolax) suppository 10 mg AND bisacodyl EC (Dulcolax) tablet 10 mg AND lactulose (Chronulac) (0.67 gram/mL) oral liquid 20 g AND lactulose (Chronulac) (0.67 gram/mL) oral liquid 20 g AND magnesium citrate oral liquid 296mL AND Tap water enema ondansetron ODT (Zofran-ODT) disintegrating tablet 4 mg OR ondansetron (pf) (Zofran) (2 mg/mL) injection 4 mg glucose (Glutose) 40% oral geL OR dextrose 10% infusion OR glucagon (Glucagen) (1 mg/mL) injection solution 1 mg insulin lispro (HumaLOG;Admelog) (100 unit/mL) subcutaneous injection vial 0-8 Units insulin glargine-ygfn (Semglee) (100 unit/mL) subcutaneous injection vial 30 Units POCT Fingerstick Glucose AND insulin lispro (HumaLOG;Admelog) (100 unit/mL) subcutaneous injection vial 1-6 Units piperacillin-tazobactam (Zosyn) 3.375 g vial attach to sodium chloride 0.9% 50 mL Mini-Bag Plus vancomycin- intermittent dosing per levels vancomycin (Vancocin) 1.75 gram in sodium chloride 0.9% 500 mL infusion amLODIPine (Norvasc) 10 mg tablet NovoLOG Flexpen U-100 Insulin Insulin Pen Basaglar KwikPen U-100 Insulin 100 unit/mL (3 mL) pen sevelamer carbonate (Renvela) 800 mg Tablet aspirin 325 mg Tablet bumetanide (BUMEX) 1 mg Tablet gabapentin (NEURONTIN) 300 mg capsule sertraline (ZOLOFT) 25 mg tablet Trulicity 0.75 mg/0.5 mL Pen Injector OneTouch Verio Flex meter Misc insulin needles, disposable, 31 gauge x 3/16 Needle epoetin babs-epbx (Retacrit) 10,000 unit/mL Solution melatonin 3 mg Tablet blood sugar diagnostic strips Strip losartan (COZAAR) 50 mg Tablet B Complex-Vitamin C-Folic Acid (NEPHROCAP) 1 mg Capsule OBJECTIVE: Temp: [36.4 ??C (97.6 ??F)] Heart Rate: [73-86] Resp: [8-17] BP: (136-161)/(69-75) No intake or output data in the 24 hours ending 01/04/24 0806 Body mass index is 37.76 kg/m??. PE: Gen: Resting comfortably in NAD, AOx3, answering questions appropriately. HEENT: NC, AT. CV: Regular rate. No murmurs, rubs, or gallops. Pulm: Normal respiratory effort on room air. Skin: Intact Psych: Normal mood and pleasant affect. Right Lower Extremity Exam: Chronic ulcer overlying the distal phalanx of the fifth digit. Healing area of callus with associated ulcer on the plantar surface between the second and third ray. Mild cellulitis on the dorsum of the foot. Minimal tenderness to palpation surrounding area of ulceration. No TTP in knee or hip. Painless range of motion of Hip / knee / ankle. Sensation diminished beyond mid calf, with 1+ out of 2 sensation to light touch in Saphenous/Sural/LFC/Femoral/MP/LP/T/DP/SP distributions. Motor intact hip flexion/extension, knee flexion/extension, ankle flexion/extension, EHL/FHL/TA. Brisk capillary refill distally. Palpable DP and PT pulses. Lab Results Component Value Date NA 134 (L) 01/04/2024 NA 137 06/17/2020 K 5.1 (H) 01/04/2024 K 4.2 01/25/2022 CL 94 (L) 01/04/2024 CL 93 (L) 06/17/2020 CO2 24 01/04/2024 CO2 35 (H) 06/17/2020 BUN 62 (H) 01/04/2024 BUN 15 06/17/2020 CREATININE 9.47 (H) 01/04/2024 CREATININE 2.44 (H) 06/17/2020 GLUCOSE 211 (H) 01/04/2024 GLUCOSE 258 (H) 06/17/2020 GLUCFASTING 156 (H) 08/02/2019 GLUCFASTING 247 07/18/2012 CALCIUM 8.8 01/04/2024 CALCIUM 9.6 06/17/2020 Lab Results Component Value Date WBC 6.37 01/04/2024 HGB 10.5 (L) 01/04/2024 HCT 33.2 (L) 01/04/2024 MCV 96.8 (H) 01/04/2024 PLATELET 172 01/04/2024 Lab Results Component Value Date INR 1.0 02/06/2020 IMAGING: MRI demonstrates osteomyelitis of R 5th toe. ASSESSMENT / PLAN: Sindi Rudolph is a 63 y.o. male with R 5th toe osteomyelitis. After review ofcase and imaging at trauma conference this morning, we will plan to take him to the OR for amputation of his R 5th toe with the level to be determined intraoperatively. Please keep NPO. Activity: WBAT RLE in hard soled shoe DVT prophylaxis: per primary, recommend [id number] BID Antibiotics: per ID/primay team Devon Perez MD 01/04/2024 No future appointments. documented in this encounter H&P Notes * Devon Perez MD - 01/04/2024 7:52 AM EDT 24-HOUR H&P UPDATE Sindi Rudolph was seen and evaluated. No interval events or changes in health status since preoperative H+P. Denies angina, dyspnea, fevers, chills, or malaise within the last 14 days. All questions were answered. Stable for surgery as scheduled. Alert and oriented RRR CTAB Sindi Rudolph is a 63 y.o. male pended for Amputation of Right 5th toe, level to be determined intraoperatively. Devon Perez MD Orthopaedic Surgery [facility] Associated attestation - Thania Wesley MD - 01/05/2024 1:42 PM EDT I have seen the patient and reviewed the attached history/physical and all imaging and I agree withthe details as written. The assessment and plan were formulated in discussion with me and I agree with them as documented. Emerald Wesley MD Department of Orthopaedics 01/05/2024 * Ramírez Gasca DO - 01/04/2024 3:31 AM EDT Images from the original note were not included. Hospital Medicine Admission History & Physical Bed: ED22/ED-22 Admit Date: 01/04/2024 12:41 AM ID: Sindi Rudolph is a 63 y.o. male with has a past medical history of Acute angle-closure glaucoma of right eye (04/06/2012), Anxiety, Arthritis, Doan's palsy (2020), Cataract. Dense with synechiae. Right eye. (06/21/2012), Cellulitis (10/19/2018), Closed fracture of right proximal humerus (07/30/2019), Complication of anesthesia, Diabetes mellitus (1994), Difficult intubation, DM eyes, GERD (gastroesophageal reflux disease), Hyperlipidemia, Hypertension, Neuromuscular disorder, and Type 2 diabetes mellitus with stage 5 chronic kidney disease not on chronic dialysis, with long-term current use of insulin. who [place] [facility] [place] Patient presents with: Hospital Transfer Foot Pain . 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 Patient states that he has an ulcer at the base of the foot for years, however the toe infection is new and has only been there for about 5 days. He says that the wooden box maker was more concerned with the toe than the ulcer. He denies, fevers, chest pain, SOB, or abd pain. In the ED vitals 158/70, HR 86, temperature 97.6 ??F, satting at 99% on 2 L nasal cannula. No current facility-administered medications on file prior to encounter. Current Outpatient Medications on File Prior to Encounter Medication Sig Dispense Refill amLODIPine (Norvasc) 10 mg tablet Take 1 tablet by mouth daily. 30 tablet 11 NovoLOG Flexpen U-100 Insulin Insulin Pen Inject 6 Units subcutaneously 3 times daily (with meals).ICD 10 Code: E11.65 (Patient taking differently: Inject 12-16 Units subcutaneously 3 times daily (with meals). ICD 10 Code: E11.65) 15 mL 5 Basaglar KwikPen U-100 Insulin 100 unit/mL (3 mL) pen Inject 20 Units subcutaneously daily. ICD 10 Code: E11.65 (Patient taking differently: Inject 50 Units subcutaneously daily. ICD 10 Code: E11.65)15 mL 5 sevelamer carbonate (Renvela) 800 mg Tablet Take 1 tablet by mouth 3 times daily (with meals). (Patient taking differently: Take 1,600 mg by mouth 3 times daily (with meals).) aspirin 325 mg Tablet Take 1 tablet by mouth daily. 90 tablet 3 bumetanide (BUMEX) 1 mg Tablet Take 2 mg by mouth 2 times daily. gabapentin (NEURONTIN) 300 mg capsule Take 300 mg by mouth 3 times daily. sertraline (ZOLOFT) 25 mg tablet Take 50 mg by mouth daily. Trulicity 0.75 mg/0.5 mL Pen Injector OneTouch Verio Flex meter Mis TEST BLOOD GLUCOSE THREE TIMES A DAY insulin needles, disposable, 31 gauge x 3/16 Needle Inject 1 each subcutaneously 4 times daily. ICD 10 Code: E11.65 150 each 5 epoetin babs-epbx (Retacrit) 10,000 unit/mL Solution Inject 1 mL subcutaneously once as needed in Dialysis. 1 mL melatonin 3 mg Tablet Take 2 tablets by mouth nightly. blood sugar diagnostic strips Strip Use to check blood sugar 3 times daily 200 each 11 losartan (COZAAR) 50 mg Tablet Take 50 mg by mouth daily. B Complex-Vitamin C-Folic Acid (NEPHROCAP) 1 mg Capsule Take 1 capsule by mouth daily. 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 Dense with synechiae. Right eye. 06/21/2012 Cellulitis 10/19/2018 Closed fracture of right proximal humerus 07/30/2019 Complication of anesthesia Had ?laryngospasm post extubation in OR 04/03/12, requrring brief reintubation. Diabetes mellitus 1994 Difficult intubation Two attempts (Mac3 and George 3 successful x 1 attempt. Suggest videolaryngoscope would be easier for future. DM eyes GERD (gastroesophageal reflux disease) no regular tx Hyperlipidemia Hypertension Neuromuscular disorder Type 2 diabetes mellitus with stage 5 chronic kidney disease not on chronic dialysis, with long-term current use of insulin Past Surgical History: Past Surgical History: Procedure Laterality Date CATARACT EXTRACTION, EXTRACAPSULAR, W/ LENS INSERTION 11/29/12 OS - DMM CATARACT REMOVAL 07/18/12 OD Swendris INTRAVITREAL INJECTION Left 10/12/2019 Eylea OS for DME per NNB INTRAVITREAL INJECTION Left 11/09/2019 Eylea OS for DME per NNB INTRAVITREAL INJECTION Left 12/07/2019 Eylea OS for DME per NNB INTRAVITREAL INJECTION Left 01/04/2020 Eylea OS for DME per NNB INTRAVITREAL INJECTION Left 02/15/2020 Eylea OS for DME per NNB INTRAVITREAL INJECTION Left 03/21/2020 Eylea OS for DME per NNB IR DIALYSIS ACCESS - AV FISTULA EVALUATIONS 06/17/2020 IR Dialysis Access - AV Fistula Evaluations 06/17/2020 Kimani Larson MD [facility] IR DIALYSIS ACCESS - AV FISTULA EVALUATIONS 11/04/2020 IR Dialysis Access - AV Fistula Evaluations 11/04/2020 Kimani Larson MD [facility] IR DIALYSIS ACCESS - AV FISTULA EVALUATIONS 01/25/2022 IR Dialysis Access - AV Fistula Evaluations 01/25/2022 Roderick Castillo MD [facility] PERIPHERAL IRIDOTOMY 04/06/2012 OD Swendris PRO EXTRACAPSULAR CATARACT RMVL INSERTION IO LENS PROSTH CPLX WO ECP 07/18/2012 PRO EXTRACAPSULAR CATARACT RMVL INSERTION IO LENS PROSTH W/O ECP 11/29/2012 CATARACT EXTRACTION, EXTRACAPSULAR, W/ LENS INSERTION performed by Erasmo George MD at [facility] PRO REPAIR COMPLEX RETINA DETACH VITRECTOMY & MEMB PEEL 04/03/2012, 04/03/12 REPAIR COMPLEX RETINAL DETACHMENT, W/ VITRECTOMY, MEMBRANE PEELING performed by Matteo Diane MD at [facility] MAIN OR PRO REPAIR COMPLEX RETINA DETACH VITRECTOMY & MEMB PEEL 07/31/2012 REPAIR COMPLEX RETINAL DETACHMENT, W/ VITRECTOMY, MEMBRANE PEELING performed by Matteo Diane MD at [facility] MAIN OR PRO REPAIR COMPLEX RETINA DETACH VITRECTOMY & MEMB PEEL 01/08/2013 REPAIR COMPLEX RETINAL DETACHMENT, W/ VITRECTOMY, MEMBRANE PEELING performed by Matteo Diane MD at [facility] MAIN OR PRO TX EXTENSIVE RETINOPATHY, PHOTOCOAGULATION 07/06/2011 OS CBC PRO TX EXTENSIVE RETINOPATHY, PHOTOCOAGULATION 07/27/2011 OS CBC PRO TX EXTENSIVE RETINOPATHY, PHOTOCOAGULATION 09/21/2011 OS CBC PRO TX EXTENSIVE RETINOPATHY, PHOTOCOAGULATION 12/20/2011 OS MANN PRO TX EXTENSIVE RETINOPATHY, PHOTOCOAGULATION 01/04/2012 OS MANN VITRECTOMY, W/ MEMBRANE STRIPPING 04/03/2012 OD, CBC YAG CAPSULOTOMY 11/15/2013 OS - Dr George Family History: Family History Problem Relation Age of Onset Glaucoma Mother Diabetes Mother Diabetes Father Hypertension Father Cataracts Neg Hx Macular Degeneration Neg Hx Retinal Detachment Neg Hx Anesthesia Reaction Neg Hx Amblyopia Neg Hx Blindness Neg Hx Cancer Neg Hx Strabismus Neg Hx Stroke Neg Hx Thyroid Disease Neg Hx Heart Disease Neg Hx Social history: Social History Socioeconomic History Marital status: Spouse name: Not on file Number of children: Not on file Years of education: Not on file Highest education level: Not on file Occupational History Occupation: unemployed Tobacco Use Smoking status: Former Smokeless tobacco: Never Tobacco comments: quit in his 20's Vaping Use Vaping status: Never Used Substance and Sexual Activity Alcohol use: No Drug use: No Sexual activity: Not on file Comment: deferred Other Topics Concern Not on file Social History Narrative Pt lives with and son. Social Determinants of Health Financial Resource Strain: Not on file Food Insecurity: Not on file Transportation Needs: Not on file Physical Activity: Not on file Intimate Partner Violence: Not At Risk (01/04/2024) IPV Inpatient Questions Prevent Contact with Others: no Feels Threatened by Someone: no Feels Unsafe at Home: no Physical Signs of Abuse Present: no Housing Stability: Not on file Meds: Continuous Infusions: Scheduled Meds: insulin lispro 0-8 Units Subcutaneous TID WC insulin glargine (Lantus;Semglee) (100 unit/mL) subcutaneous injection 30 Units Subcutaneous Daily insulin lispro 1-6 Units Subcutaneous Q4H RICHELLE piperacillin-tazobactam 3.375 g Intravenous Q8H PRN Meds:.glucose 40% oral geL OR dextrose OR glucagon Vital Signs: Last value Range last 24 hrs Temperature Temp: 36.4 ??C (97.6 ??F) Temp: [36.4 ??C (97.6 ??F)] Heart Rate Heart Rate: 78 Heart Rate: [75-86] Blood Pressure BP: 140/70 BP: (136-161)/(69-75) Respiratory Rate Resp: 14 Resp: [14-17] SpO2 SpO2: 98 % SpO2: [98 %-99 %] Patient Vitals for the past 168 hrs: Weight 01/04/24 0050 99.8 kg (220 lb) Admit wt: 99.79 kg Weight change: I/O: No intake or output data in the 24 hours ending 01/04/24 0446 Physical Exam: Gen: in bed in NAD; alert, oriented, conversant HEENT: anicteric, EOMI intact, head atraumatic/normocephalic CV: RRR, no murmurs/rubs/gallops Resp: CTAB, no crackles/wheezes/ronchi, normal work of breathing Abd: normal bowel sounds, soft, non-tender to palpation, no rebound or guarding Ext: Ulcer over the right fifth digit of lower extremity, erythema plus edema on the dorsal side offoot. No tenderness to palpation, decreased sensorium in the lower extremities bilateral, palpable distal pulses present and lower extremity Neuro: no focal deficits noted, moves all extremities spontaneously Skin: no rashes, lesions, or ulcerations noted Labs Recent Labs 01/04/24 0341 WBC 6.37 HGB 10.5* HCT 33.2* PLATELET 172 Recent Labs 01/04/24 0341 NA 134* CL 94* CO2 24 K 5.1* CALCIUM 8.8 BUN 62* CREATININE 9.47* No results for input(s): AST, ALT, ALKPHOS, BILITOT, BILIDIR in the last 168 hours. No results for input(s): INR, PT, PTT in the last 168 hours. No results for input(s): CK, TROPONINT, PROBNP in the last 168 hours. No results for input(s): POCGLU in the last 168 hours. Micro Microbiology Results (Last 30 days) No results found for the last 720 hours. Imaging/Studies: Results for orders placed or performed during the hospital encounter of 01/04/24 XR Foot Min 3 views Right (Generic) (Exam End: 01/04/2024 3:55 AM) Result Value WORKSTATION ID [id number] Impression FINDINGS/IMPRESSION: * Mild osteolytic appearance of the tuft of the fifth digit distal phalanx, could be sequela of osteomyelitis in appropriate clinical setting (as clinically warranted, could consider MRI evaluation barring contraindication). * Moderately advanced osteoarthropathy involving the midfoot, predominantly medially. Arteriovascular calcifications. Please note, this examination was ordered, performed, and interpreted in a STAT/emergency setting. Thank you for letting us participate in the care of this patient. If you are a health care provider and have any questions regarding this report, please contact the number below. For patients who have questions please contact the health care companion that requested your imaging first. Electronically signed by: Huang Hernandez MD, [facility] ([phone]), at 01/04/2024 4:33 AM Assessment & Plan: Sindi Rudolph is a 63 y.o. 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 Prescribed antibiotics that were started12/27 which was clindamycin 3 times daily. He presented today after his office for debridement was where they were concerned with possible bleeding revascularization procedure. Orthopedics was consulted and recommended ABIs and MRI. Gangrenous ulcer likely secondary to diabetes with complications of neuropathy compounded with end-stage renal disease. Will be placed on antibiotics and continue homeregimen of medications. Imaging will be ordered and Ortho will continue to follow. # Gangrenous foot ulcer # Osteomyelitis -Follow-up MRI with and without contrast -Follow-up JOSÉ MIGUEL - vancomycin -Zosyn -Tylenol for fevers -Trend inflammatory markers -Follow-up cultures -Appreciate orthopedic recommendations #HTN #HLD -Amlodipine 10 mg daily -Atorvastatin 40 mg daily #ESRD on HD M// -Sevelamer 1600 mg TID #T2DM -Lantus 20 units daily -6 units 3 times daily -SSL #Neuropathy -Gabapentin 300 mg 3 times daily #BPH -Flomax 0.4 mg nightly # Anxiety/depression -Sertraline 25 mg daily #Routine --DVT ppx: heparin --GI ppx: --Diet No diet orders on file --Dispo: --Code status: Attempt Cardiopulmonary Resuscitation - Inpatient Ramírez Gasca DO 01/04/24 4:46 AM documented in this encounter ED Notes * Mehnaz Franklin RN - 01/04/2024 6:30 AM EDT This RN notified pt that we will need a urine sample. Per pt, he does not make urine. MD notified. * Mehnaz Franklin RN - 01/04/2024 2:28 AM EDT Ortho at bedside * Mehnaz Franklin RN - 01/04/2024 1:50 AM EDT Pt up to bedside commode * Larisa George MD - 01/04/2024 1:05 AM EDT ED Attending Brief Note The patient was seen in conjunction with the resident physician. I have independently performed thekey portions of the history and physical exam. I have reviewed the diagnostic studies including labs, imaging studies and EKGs. I have discussed the details of the case with the resident. Brief Summary: ED Course as of 01/04/244 TueJan 04, 2024 010 63-year-old [facility]. Patient is a dialysis patient. On arrival here, patient has no acute complaints with except for his right small toe. On exam, it is acutely gangrenous. There is no evidence of superimposed cellulitis. He is on his baseline level of oxygen. Plan for likely admission for definitive care. 443 C-Reactive Protein(!): 33.9 Discussed with orthopedics, recommend MRI, ABIs, admission to Did this case involve critical care? No Larisa George MD 01/04/24 0237 * Lauren Castillo, DO - 01/04/2024 12:57 AM EDT Images from the original note were not included. ED RESIDENT NOTE Patient: Sindi Rudolph Age (): 63 y.o. (1960) SUBJECTIVE HPI: Sindi Rudolph is a 63 y.o. male with PMH ESRD (M/W/F), HTN, T2DM, and restrictive lung disease on 2 L nasal cannula who presented to the ED as a transfer for evaluation of right toe gangrene. [facility] after his wooden box maker sent him to the ED. He has known osteomyelitis with a gangrenous diabetic foot ulcer of the fifth toe of the right foot. It has been present for several weeksand was started on antibiotics 12/27, clindamycin 3 times a day. He was seen at his wooden box maker office today for debridement. They were worried about underlying revascularization procedure. His BUN/creatinine consistent with his ESRD. Hyperkalemic 5.2 with no associated EKG changes. Patient notes that his pinky toe has progressed to this color over the past week. He states it was initially purple/blue but then exploded and is now black. ROS as per HPI. Past Medical and Surgical Histories, Social History, Medications, Allergies were reviewed in the chart. Pt was seen under the supervision of an attending physician. OBJECTIVE Vital Signs: ED Triage Vitals [01/04/24 0050] BP: 158/70 Heart Rate: 86 Resp: 16 Temp: 36.4 ??C (97.6 ??F) Temp src: Oral SpO2: 99 % O2 Device: NC O2 Flow Rate (L/min): 2 L/min Physical Exam Constitutional: Appearance: He is obese. HENT: Head: Normocephalic. Cardiovascular: Rate and Rhythm: Normal rate and regular rhythm. Pulses: Normal pulses. Heart sounds: Normal heart sounds. Pulmonary: Effort: Pulmonary effort is normal. Breath sounds: Normal breath sounds. Abdominal: General: Abdomen is flat. Bowel sounds are normal. There is distension. Tenderness: There is no abdominal tenderness. Musculoskeletal: Cervical back: Normal range of motion. Skin: General: Skin is warm. Capillary Refill: Capillary refill takes less than 2 seconds. Neurological: Mental Status: He is alert. I have reviewed imaging, which is significant for: XR Foot Min 3 views Right (Generic) Final Result FINDINGS/IMPRESSION: * Mild osteolytic appearance of the tuft of the fifth digit distal phalanx, could be sequela of osteomyelitis in appropriate clinical setting (as clinically warranted, could consider MRI evaluation barring contraindication). * Moderately advanced osteoarthropathy involving the midfoot, predominantly medially. Arteriovascular calcifications. Please note, this examination was ordered, performed, and interpreted in a STAT/emergency setting. Thank you for letting us participate in the care of this patient. If you are a health care provider and have any questions regarding this report, please contact the number below. For patients who have questions please contact the health care companion that requested your imaging first. Electronically signed by: Huang Hernandez MD, [facility] ([phone]), at 01/04/2024 4:33 AM Film Library- Storage Only DX Foot Final Result MRI Foot wwo Contrast Right (Results Pending) ASSESSMENT & PLAN ED Course as of 01/04/24 0453 TueJan 04, 2024 0453 White Blood Cell: 6.37 0453 Hemoglobin(!): 10.5 0453 Hematocrit(!): 33.2 0453 Platelet: 172 0453 Blood Urea Nitrogen(!): 62 0453 Creatinine(!): 9.47 ESRD 0453 Sodium(!): 134 0453 Potassium(!): 5.1 MDM: This is a 63-year-old male who presented as a transfer for orthopedics evaluation in the setting of right pinky toe gangrene and associated osteomyelitis. Patient follows closely outpatient withpodiatry and has been on oral clindamycin. He has had no systemic symptoms. He is nontoxic in appearance and exam is overall reassuring. On his right foot he has overlying cellulitis on the dorsum ofthe foot and a gangrenous right pinky toe. He also has a chronic ulcer near the base of his right great toe on the plantar surface of his foot. X-ray from OSH shows osteolytic appearance of the tuft of the fifth distal phalanx which is consistent with underlying osteomyelitis. Orthopedics team was consulted. They recommended JOSÉ MIGUEL and MRI. They also recommended admission to hospital medicine team. Given he is nontoxic in appearance and has no systemic symptoms we will hold antibiotics. DIAGNOSIS: 1. Gangrene of toe of right foot The visit findings, diagnosis, and care plan were discussed with the patient. Lauren Castillo D.O. Emergency Medicine Resident, PGY-3 01/04/24 4:53 AM Lauren Castillo DO Resident 01/04/24 0457 * Ivon Choudhary RN - 01/03/2024 11:20 PM EDT Sending Facility: [facility] Reason for Transfer: wound on r foot (hx diabetes and is a dialysis patient) Report: sub-right first metatarsal phalangeal joint diabetic ulcer per podiatry, suspected gangrene. Patient was on antibiotics at OSH, OSH podiatry worried about revascularization. Fistula L forearm, MWF dialysis. 20G RAC 2L O2 baseline Vital Signs: Pulse: 83 B/P: 177/74 Resp: 16 SPO2: 98 O2 LPM: 2 GCS: 15 Temp: 36.9 Transporting Service: [facility] Time of Departure: 2300 ETA: 0130 * Rufus Haji DO - 01/03/2024 6:01 PM EDT EM attending brief transfer acceptance note: Sindi Rudolph is a 63 y.o. who I accepted in transfer from [facility] The patient will be evaluated in the Emergency Department for foot ulcers and need for vascular evaluation. Not systemically ill. Labs at baseline for dialysis pt. The EM team will contact the vascular and likely ortho team as needed The OSH does not agree to take the patient back in transfer after our evaluation and treatment. Transfer and stabilization prior to transfer were discussed Rufus Haji DO 01/03/24 5388 documented in this encounter Miscellaneous Notes * Care Management Discharge - Antonio Breaux RN - 01/09/2024 5:57 PM EDT CARE MANAGEMENT FINAL DISCHARGE NOTE Chart reviewed, care reviewed with primary team and at interdisciplinary rounds. Patient is medically ready for discharge to Home. Needs for Transition of Care: Plan for discharge is: Home w/ Services Outpatient Agency/Support Group Needs: Homecare agency, Hemodialysis Resp Needs: Home O2 Company: [employer] Home Health Services: Registered Nurse, Physical Therapy, Occupational Therapy Agency Referrals & Follow-up Care: Contact information for follow-up [facility] [address] [facility] [id number] Kimani Leger MD Relationship: PCP - General [facility] [address] [facility] [address] [facility] [phone] Transportation: wheelchair van *Medicaid Ride Wheelchair van/Ambulance? No Functional status prior to admission: Assistive Equipment (FWW or Cane) Home Environment: Others in the home: child(darren), adult, spouse (Lives with & Son). Current Living Arrangements: home/apartment/condo. Accessibility Concerns:Lives in a 2 story Home, 0 MILDRED. Current Functional Ability: Assistive Equipment DME used at home: oxygen, walker - standard, shower chair, hospital bed, grab bar - tub/shower, grab bar - toilet, cane - straight, commode chair (Home O2 2L Baseline ([facility]) with POC) DME Needed at Discharge: Patient is insured through: Primary Insurance: MEDICARE Payor: MEDICARE / Plan: MEDICARE PART A & B / Product Type: *No Product type* / Secondary Insurance: MEDICAID [place] Prescription Coverage: Yes This plan was formulated with input from patient and team. All are in agreement with plan. Antonio TOBAR, RN- Parts Facilitator- Medicine Office of Care Management Ext: [phone] Pager: [phone] * Care Management - Ruby Wolfe - 01/09/2024 12:19 PM EDTSummary: Discharge Ride Warehouse Order Puller scheduled a medicaid discharge ride with [facility] ([phone]). Forest Fire Management Officer will product picker patient at entrance #2 at 5:30pm. Forest Fire Management Officer's name is Abdias and he drives a black Subaru Doug[employer]. * Plan of Care - Marely Santillan RN - 01/08/2024 9:13 AM EDT Problem: Adult Inpatient Plan of Care Goal: Plan of Care Review Outcome: Ongoing (Interventions Implemented as Appropriate) Goal: Patient-Specific Goal (Individualized) Outcome: Ongoing (Interventions Implemented as Appropriate) Goal: Absence of Hospital-Acquired Illness or Injury Outcome: Ongoing (Interventions Implemented as Appropriate) Goal: Optimal Comfort and Wellbeing Outcome: Ongoing (Interventions Implemented as Appropriate) Goal: Readiness for Transition of Care Outcome: Ongoing (Interventions Implemented as Appropriate) Problem: Fall Injury Risk Goal: Absence of Fall and Fall-Related Injury Outcome: Ongoing (Interventions Implemented as Appropriate) * Plan of Care - Marely Santillan RN - 01/07/2024 4:48 PM EDT OUTCOME EVALUATION NOTE: OUTCOME SUMMARY: Patient A&Ox4, VSS on 2L NC. Denies nausea/vomiting, CP, SOB. Pain controlled w/ scheduled and PRN medications, see MAR. Patient oliguric, dialysis Tue/Barbara/Sat. Dialysis today removed 2.5L. LBM 01/06. Apryl wrap dressing to RLE noted to be CDI. Patient resting between care. All concerns and questions at this time addressed, bed in lowest position, call light in reach. PLAN MOVING FORWARD: Pain control Mobilize D/C planning Freq neurovascular checks ACHS Glucose Significant Shift Events: N/A, shift uneventful. INDIVIDUALIZED FALL PREVENTION INTERVENTIONS: Patient-specific fall risk factors per assessment: [current deficits]: Hospital environment, Pain, Medications, LUE AV Fistula, RLE wound/dressing Assistance [level of assistance required for transfers and ambulation]: 1x assist w/ walker Supervision [direct monitoring required during toileting and ADLs]: 1x assist with walker Surveillance [continuous indirect monitoring]: Hourly rounding, Masimo, Nursing knowledge exchange,Call doan within reach, Bed alarm * Plan of Care - Marely Santillan RN - 01/07/2024 10:07 AM EDT Problem: Adult Inpatient Plan of Care Goal: Plan of Care Review Outcome: Ongoing (Interventions Implemented as Appropriate) Goal: Patient-Specific Goal (Individualized) Outcome: Ongoing (Interventions Implemented as Appropriate) Goal: Absence of Hospital-Acquired Illness or Injury Outcome: Ongoing (Interventions Implemented as Appropriate) Goal: Optimal Comfort and Wellbeing Outcome: Ongoing (Interventions Implemented as Appropriate) Goal: Readiness for Transition of Care Outcome: Ongoing (Interventions Implemented as Appropriate) Problem: Fall Injury Risk Goal: Absence of Fall and Fall-Related Injury Outcome: Ongoing (Interventions Implemented as Appropriate) * Plan of Care - Rishi Zarate RN - 01/07/2024 1:33 AM EDT OUTCOME EVALUATION NOTE: OUTCOME SUMMARY: Patient A&Ox4, VSS on CPAP/2LNC. Denies nausea/vomiting, CP, SOB. Pain controlled w/ scheduled and PRN medications, see JUN. Patient oliguric, dialysis Tue/Barbara/Sat . LBM 01/04. Apryl wrap dressing to RLE noted to be CDI. Patient resting between care. All concerns and questions at this time addressed, bed in lowest position, call light in reach. PLAN MOVING FORWARD: Pain control Mobilize D/C planning Freq neurovascular checks ACHS Glucose Significant Shift Events: N/A, shift uneventful. INDIVIDUALIZED FALL PREVENTION INTERVENTIONS: Patient-specific fall risk factors per assessment: [current deficits]: Hospital environment, Pain, Medications, LUE AV Fistula, RLE wound/dressing Assistance [level of assistance required for transfers and ambulation]: 1x assist w/ walker Supervision [direct monitoring required during toileting and ADLs]: 1x assist with walker Surveillance [continuous indirect monitoring]: Hourly rounding, Masimo, Nursing knowledge exchange,Call doan within reach, Bed alarm * Consult Note - Faby Ferrell MD - 01/06/2024 11:40 AM EDT INFECTIOUS DISEASE CONSULTATION NOTE Reason for Consult: Foot OM Consulting Service: Medicine Consulting Attending: Jesús Muñiz MD Admission Date: 01/04/2024 History of Present Illness: Sindi Rudolph is a 63 y.o. male with a history of poorly controlled type 2 diabetes mellitus complicated by proliferative diabetic retinopathy and peripheral neuropathy, end-stage renal disease ondialysis (Tuesday via fistula), morbid obesity, hyperlipidemia and hypertension is admitted with complaints of worsening right fifth toe ulcer. No spiking fever on leukocytosis on admission. Right foot x-ray showed mild osteolytic appearance of the tuft of fifth digit could be sequela of osteomyelitis as well as osteoarthropathy involving the midfoot. MRI of the foot was done as well which showed deep ulceration of the fifth toe distal phalanx exposing the underlying bone with acute osteomyelitis of the fifth distal and proximal phalanges no osteomyelitis of the fifth metatarsal. Superficial plantar ulceration underneath 1st metatarsalhead with no evidence of osteomyelitis of 1st metatarsal. Subcutaneous edema/enhancement surrounding above-mentioned ulcerations and dorsum foot suggestive of cellulitis. No organized fluid collection or abscess. Midfoot osteoarthropathy. The patient was seen by orthopedic surgery and underwent the following procedure 01/03 Procedure(s) (LRB): AMPUTATION, TRANSMETATARSAL TOE, ONE TOE (Right) MODIFIER WOUND VAC (N/A) Postop x-ray showed interval fifth ray resection OR cultures are growing Klebsiella and Acetobacter Patient was started on IV vancomycin and Zosyn and Zosyn was continued ID service consulted for antibiotic management of right foot osteomyelitis secondary to Klebsiella and Acinetobacter Patient denies any nausea vomiting diarrhea but has bloating. No spiking fevers rigors or chills but has low temperatures Tmax of 100 degrees yesterday. No leukocytosis this admission Antimicrobials: IV Zosyn and IV vancomycin RECOMMENDATIONS: -Continue with IV Zosyn based on wound cultures from the OR growing Klebsiella and Acinetobacter -Continue vancomycin for now till Staph aureus is speciated. Dosing per pharmacy -Patient will likely need 6 weeks of IV therapy. We will prefer to use an antibiotic combination that can be given post dialysis -Pathology is currently pending -Rest of care per primary team -Thank you for the consult. ID consult service will continue to follow. ID will follow-up next weekonce cultures are finalized for definitive recommendations. For urgent matters please contact on-call infectious disease team on weekends Review of Systems: Pertinent positives and negatives noted in HPI. 14 point ROS otherwise negative except noted in HPI. 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 Dense with synechiae. Right eye. 06/21/2012 Cellulitis 10/19/2018 Closed fracture of right proximal humerus 07/30/2019 Complication of anesthesia Had ?laryngospasm post extubation in OR 04/03/12, requrring brief reintubation. Diabetes mellitus 1994 Difficult intubation Two attempts (Mac3 and George 3 successful x 1 attempt. Suggest videolaryngoscope would be easier for future. DM eyes GERD (gastroesophageal reflux disease) no regular tx Hyperlipidemia Hypertension Neuromuscular disorder Type 2 diabetes mellitus with stage 5 chronic kidney disease not on chronic dialysis, with long-term current use of insulin Past Surgical History: Past Surgical History: Procedure Laterality Date CATARACT EXTRACTION, EXTRACAPSULAR, W/ LENS INSERTION 11/29/12 OS - DMM CATARACT REMOVAL 07/18/12 OD Swendris INTRAVITREAL INJECTION Left 10/12/2019 Eylea OS for DME per NNB INTRAVITREAL INJECTION Left 11/09/2019 Eylea OS for DME per NNB INTRAVITREAL INJECTION Left 12/07/2019 Eylea OS for DME per NNB INTRAVITREAL INJECTION Left 01/04/2020 Eylea OS for DME per NNB INTRAVITREAL INJECTION Left 02/15/2020 Eylea OS for DME per NNB INTRAVITREAL INJECTION Left 03/21/2020 Eylea OS for DME per NNB IR DIALYSIS ACCESS - AV FISTULA EVALUATIONS 06/17/2020 IR Dialysis Access - AV Fistula Evaluations 06/17/2020 Kimani Larson MD [facility] DIALYSIS ACCESS - AV FISTULA EVALUATIONS 11/04/2020 IR Dialysis Access - AV Fistula Evaluations 11/04/2020 Kimani Larson MD [facility] IR DIALYSIS ACCESS - AV FISTULA EVALUATIONS 01/25/2022 IR Dialysis Access - AV Fistula Evaluations 01/25/2022 Roderick Castillo MD [facility] PERIPHERAL IRIDOTOMY 04/06/2012 OD Efren PRO AMPUTATION METATARSAL+TOE, SINGLE Right 01/04/2024 AMPUTATION, TRANSMETATARSAL TOE, ONE TOE (WRVU 6.64) performed by Thania Wesley MD at [facility] PRO EXTRACAPSULAR CATARACT RMVL INSERTION IO LENS PROSTH CPLX WO ECP 07/18/2012 PRO EXTRACAPSULAR CATARACT RMVL INSERTION IO LENS PROSTH W/O ECP 11/29/2012 CATARACT EXTRACTION, EXTRACAPSULAR, W/ LENS INSERTION performed by Erasmo George MD at [facility] PRO REPAIR COMPLEX RETINA DETACH VITRECTOMY & MEMB PEEL 04/03/2012, 04/03/12 REPAIR COMPLEX RETINAL DETACHMENT, W/ VITRECTOMY, MEMBRANE PEELING performed by Matteo Diane MD at [facility] PRO REPAIR COMPLEX RETINA DETACH VITRECTOMY & MEMB PEEL 07/31/2012 REPAIR COMPLEX RETINAL DETACHMENT, W/ VITRECTOMY, MEMBRANE PEELING performed by Matteo Diane MD at [facility] PRO REPAIR COMPLEX RETINA DETACH VITRECTOMY & MEMB PEEL 01/08/2013 REPAIR COMPLEX RETINAL DETACHMENT, W/ VITRECTOMY, MEMBRANE PEELING performed by Matteo Diane MD at [facility] PRO TX EXTENSIVE RETINOPATHY, PHOTOCOAGULATION 07/06/2011 OS CBC PRO TX EXTENSIVE RETINOPATHY, PHOTOCOAGULATION 07/27/2011 OS CBC PRO TX EXTENSIVE RETINOPATHY, PHOTOCOAGULATION 09/21/2011 OS CBC PRO TX EXTENSIVE RETINOPATHY, PHOTOCOAGULATION 12/20/2011 OS MANN PRO TX EXTENSIVE RETINOPATHY, PHOTOCOAGULATION 01/04/2012 OS MANN VITRECTOMY, W/ MEMBRANE STRIPPING 04/03/2012 OD, CBC YAG CAPSULOTOMY 11/15/2013 OS - Dr George Medications: Scheduled Meds: amLODIPine 10 mg Oral Daily aspirin 325 mg Oral Daily bumetanide 2 mg Oral BID gabapentin 300 mg Oral TID sertraline 50 mg Oral Daily sevelamer carbonate 1,600 mg Oral TID WC sodium chloride 0.9 % (flush) 5 mL Intravenous BID heparin (porcine) 5,000 Units Subcutaneous Q8H RICHELLE insulin lispro 0-8 Units Subcutaneous TID WC insulin glargine (Lantus;Semglee) (100 unit/mL) subcutaneous injection 30 Units Subcutaneous Daily piperacillin-tazobactam 3.375 g Intravenous Q12H insulin lispro 1-4 Units Subcutaneous TID AC Allergies/Adverse drug reactions: Allergies Allergen Reactions Mirtazapine Other reaction(s): Other (see comments) Agitation, Nightmares. Family History: Family History Problem (# of Occurrences) Relation (Name,Age of Onset) Diabetes (2) Mother, Father Hypertension (1) Father Glaucoma (1) Mother Negative family history of: Cataracts, Macular Degeneration, Retinal Detachment, Anesthesia Reaction, Amblyopia, Blindness, Cancer, Strabismus, Stroke, Thyroid Disease, Heart Disease Social History: Social History Tobacco Use Smoking status: Former Smokeless tobacco: Never Tobacco comments: quit in his 20's Vaping Use Vaping status: Never Used Substance Use Topics Alcohol use: No Drug use: No Social History Social History Narrative Pt lives with and son. Physical Exam: Last value Range last 24 hrs Temperature Temp: 37.5 ??C (99.5 ??F) Temp: [36.1 ??C (97 ??F)-37.8 ??C (100 ??F)] Heart Rate Heart Rate: 73 Heart Rate: [73] Blood Pressure BP: 157/62 BP: (131-174)/(57-82) Respiratory Rate Resp: 18 Resp: [18-20] SpO2 SpO2: 97 % SpO2: [96 %-99 %] General: no acute distress Head: normocephalic, atraumatic EENT: No conjunctival petechiae Neck: No LAD Cardiovascular: RRR, no murmur, rubs, or gallops Pulmonary: Lungs clear to auscultation bilaterally; no wheezing, rhonchi, or rales Abdomen: Soft, non-tender, non-distended Ext: Right foot warm no tati pus or gangrenous changes at the surgical site he did not get Skin: No rash on visible skin Neuro: A&O, moves all 4 extremities spontaneously Psych: Euthymic, pleasant Lines/tubes/drains: Fistula Piv I have reviewed the pertinent laboratory, microbiology, and diagnostic/radiology/procedure results: Recent Labs 01/06/2451001/05/2481701/04/24340 WBC 5.83 6.56 6.37 HGB 10.0* 9.8* 10.5* HCT 31.9* 31.1* 33.2* PLATELET 133* 151 172 Recent Labs 01/06/2451001/05/2418 01/04/24340 NA 137 135 134* K 4.6 6.3* 5.1* CL 98 95* 94* CO2 26 23 24 BUN 39* 74* 62* CREATININE 8.15* 11.45* 9.47* No results for input(s): AST, ALT, ALKPHOS, BILITOT, BILIDIR in the last 168 hours. Recent Labs 01/04/24 034 SEDRATE 109* Recent Labs 01/04/24 034 CRP 33.9* Microbiology: 01/03 Cultures from the bone growing Klebsiella oxytoca and rare Acinetobacter, Staph aureus Susceptibility Klebsiella oxytoca VITEK 2 METHOD Ampicillin >=32.0 ug/ml Resistant Ampicillin + Sulbactam =8.0 ug/ml Susceptible Cefazolin (Systemic) Resistant Cefepime <=0.12 ug/ml Susceptible Ceftriaxone <=0.25 ug/ml Susceptible Ciprofloxacin <=0.06 ug/ml Susceptible Gentamicin <=1.0 ug/ml Susceptible Levofloxacin <=0.12 ug/ml Susceptible Piperacillin/Tazobactam <=4.0 ug/ml Susceptible Trimethoprim/Sulfa <=20.0 ug/ml Susceptible Imaging/diagnostics: Imaging reports reviewed. See detailed reports in epic. Pertinent imaging findings as below 01/03 Postop x-ray showed interval fifth ray resection 01/03 MRI IMPRESSION 1. Deep ulceration of 5th toe distal phalange exposing the underlying bone with acute osteomyelitis 5th distal and proximal phalanges. No osteomyelitis of 5th metatarsal 2. Superficial plantar ulceration underneath 1st metatarsal head with no evidence of osteomyelitis of 1st metatarsal. 3. Subcutaneous edema/enhancement surrounding above-mentioned ulcerations and dorsum foot suggestive of cellulitis. No organized fluid collection or abscess. 4. Midfoot osteoarthropathy. Electronically signed by: Caden Kemp MD, [facility] ([phone] X-ray foot IMPRESSION FINDINGS/IMPRESSION: * Mild osteolytic appearance of the tuft of the fifth digit distal phalanx, could be sequela of osteomyelitis in appropriate clinical setting (as clinically warranted, could consider MRI evaluation barring contraindication). * Moderately advanced osteoarthropathy involving the midfoot, predominantly medially. Arteriovascular calcifications. Electronically signed by: Huang Hernandez MD, [facility] ([phone]), at 01/04/2024 4:33 AM Please page ID Rafita [email or web address] (pager [phone]) with questions or concerns or secure chat On weekends, please contact electronics computer mechanic ID fellow for urgent matters. Time spent > 75 minutes on the date of service on the [id number] encounter, chart review, clinical decision-making, documentation, and coordination of care with other team members regarding treatment of infection Dr. Ferrell, KATELYNN Attending, Department of Infectious Diseases 8 am to 5 pm, Tuesday - Tuesday01/06/2024 * Initial Assessments - Antonio Breaux RN - 01/06/2024 10:51 AM EDT Office of Care Management Initial Assessment Antonio Breaux RN reviewed record and discussed patient with Care Team. Source of Information: Team, bedside nurse, medical record, and Patient Introduced self/reviewed role; services accepted. 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 Dense with synechiae. Right eye. 06/21/2012 Cellulitis 10/19/2018 Closed fracture of right proximal humerus 07/30/2019 Complication of anesthesia Had ?laryngospasm post extubation in OR 04/03/12, requrring brief reintubation. Diabetes mellitus 1995 Difficult intubation Two attempts (Mac3 and George 3 successful x 1 attempt. Suggest videolaryngoscope would be easier for future. DM eyes GERD (gastroesophageal reflux disease) no regular tx Hyperlipidemia Hypertension Neuromuscular disorder Type 2 diabetes mellitus with stage 5 chronic kidney disease not on chronic dialysis, with long-term current use of insulin Hospitalizations Within the Past 30 Days: no previous admission in last 30 days Current Decision-Making Capacity: Self Advance Care Planning: Attempt Cardiopulmonary Resuscitation - Inpatient Received -Advanced Directive: Yes, on file Who is your DPOA-HC?: Sibling (Adriana- Sister/ DPOA) Current Coping/Education/Information Needs: None Current Functional Ability: Functional Status Prior to Admission: Assistive Equipment (FWW or Cane) Prior ADLs & IADLs: Independent with all ADLs & IADLs Home Environment: Others in the home: child(darren), adult, spouse (Lives with & Son). Current Living Arrangements: home/apartment/condo. Accessibility Concerns:Lives in a 2 story Home, 0 MILDRED. In the last 12 months, was there a time when you were not able to pay the mortgage or rent on time?: No In the past 12 months, how many times have you moved where you were living?: 1 At any time in the past 12 months, were you homeless or living in a halfway (including now)?: No In the past 12 months has the electric, gas, oil, or water company threatened to shut off services in your home?: No Within the past 12 months, you worried that your food would run out before you got the money to buymore.: Never true Within the past 12 months, the food you bought just didn't last and you didn't have money to get more.: Never true Resource / Environmental Concerns: Resource/Environmental Concerns: none In the past 12 months, has lack of transportation kept you from medical appointments or from getting medications?: No In the past 12 months, has lack of transportation kept you from meetings, work, or from getting things needed for daily living?: No Current DME: oxygen, walker - standard, shower chair, hospital bed, grab bar - tub/shower, grab bar- toilet, cane - straight, commode chair (Home O2 2L Baseline ([facility]) with POC) Home Address confirmed as: [address] [place] [id number] Social & Family Supports: All names listed below confirmed with patient as current and correct Extended Emergency Contact Information Primary Emergency Contact: Adriana Lopez [place], [place] Mobile Relation: Sibling Secondary Emergency Contact: Iva [place], [place] Mobile Relation: Sibling Current Care Provided by: self Provides Primary Care For: no one Caregiver if needed: spouse (Kaye Rudolph J- , ) Quality of Family relationships: helpful, involved, supportive Community Resources being provided currently: homecare agency ([facility], [facility] O2 ([facility] 2L) Behavioral Health History: None Substance Use/Abuse listed: Social History Tobacco Use Smoking Status Former Smokeless Tobacco Never Tobacco Comments quit in his 20's In the past year have you used an illegal drug or used a prescription medication for non-medical reasons?: No 0 No problems reported 1-2 Low level 3-5 Moderate level 6-8 Substantial level 9- 10 Severe level In the past year have you had 5 or more drinks a day containing alcohol?: No 0 to 7 points: Low risk 8 to 15 points: Medium risk 16 to 19 points: High risk 20 to 40 points: Addiction likely Other Pertinent/Service Specific Information: None Health/Prescription Coverage: Primary Insurance: MEDICARE Payor: MEDICARE / Plan: MEDICARE PART A & B / Product Type: *No Product type* / Secondary Insurance: MEDICAID [place] ONLY if patient has Medicare A&B - Does this patient have secondary insurance?: Yes ; Prescription Coverage: Yes Preferred Pharmacy: [facility] [place], [place] - [address] [facility] [address] [facility] [address] Status: Patient is a : Yes Are you enrolled in the VA for your healthcare?: No Primary Care Provider listed: Kimani Leger MD [phone] Patient/Caregiver Goals of Treatment: To get out of here Potential Needs for Transition of Care: none Agency Referrals: I have met with the patient to: discuss discharge planning needs. provide the [facility] Office of Care Management letter from the [employer] pertaining to rehab referrals. provide a letter describing our affiliations within the [facility] and educate about their right to choose where referrals are sent. provide a list of Home Health Agencies / Durable Medical Equipment vendors which serve their preferred geographic area. provided patient with [facility] Star Quality Rating handout. They have requested referrals to: [facility] WINSOME (RN, PT/OT) [address] [facility] [address] PHONE: [phone] FAX: [phone] [facility] Home O2, Baseline 2L Main phone number: [phone] Main fax: [phone] Note routed to a Warehouse Order Puller who will communicate referrals to facilities and provide any required information. Resumption of Hemodialysis at: [facility] [address] [place] [address] Patient is a current client on: Tuesday, Tuesday, Tuesday at 7-11 (time) Transportation to HD is provided by: [employer] Note routed to a Warehouse Order Puller who will communicate referrals to facilities and provide any required information. Transportation: no concerns Transportation Anticipated: family or friend will provide Concerns to be Addressed: discharge planning Assessment: Patient is admitted to Medicine service for Osteomyelitis Plan going forward: Chronic HD. Osteo- s/p R Toe resection 01/04. BC- Pending- ID OPAT, VNA 6 weeks ABX- Needs OPAT. PT/OT- Pending. Care Management team will continue to follow and assist with discharge planing and coordination of care as indicated. Antonio TOBAR, RN-CM Parts Facilitator- Medicine Office of Care Management Ext: [phone] Pager: [phone] * Initial Assessments - Faye Vera PT - 01/06/2024 9:40 AM EDT Physical Therapy Evaluation Patient profile: Sindi Rudolph is a 63 y.o. male with a history of poorly controlled type 2 diabetes mellitus complicated by proliferative diabetic retinopathy and peripheral neuropathy, end-stagerenal disease on dialysis, morbid obesity, and essential hypertension who presents with a worseningright fifth toe ulcer. Pt is s/p partial R 5th ray resection on 01/04/[address] Wesley. Pt referredto Physical Therapy for orthotic fitting and mobility assessment prior to discharge. Patient with the following active problems: Past Medical History: Diagnosis Date Acute angle-closure glaucoma of right eye 04/06/2012 Anxiety Arthritis Doan's palsy 2020 Cataract. Dense with synechiae. Right eye. 06/21/2012 Cellulitis 10/19/2018 Closed fracture of right proximal humerus 07/30/2019 Complication of anesthesia Had ?laryngospasm post extubation in OR 04/03/12, requrring brief reintubation. Diabetes mellitus 1995 Difficult intubation Two attempts (Mac3 and George 3 successful x 1 attempt. Suggest videolaryngoscope would be easier for future. DM eyes GERD (gastroesophageal reflux disease) no regular tx Hyperlipidemia Hypertension Neuromuscular disorder Type 2 diabetes mellitus with stage 5 chronic kidney disease not on chronic dialysis, with long-term current use of insulin Past Surgical History: Procedure Laterality Date CATARACT EXTRACTION, EXTRACAPSULAR, W/ LENS INSERTION 11/29/12 OS - DMM CATARACT REMOVAL 07/18/12 OD Swendris INTRAVITREAL INJECTION Left 10/12/2019 Eylea OS for DME per NNB INTRAVITREAL INJECTION Left 11/09/2019 Eylea OS for DME per NNB INTRAVITREAL INJECTION Left 12/07/2019 Eylea OS for DME per NNB INTRAVITREAL INJECTION Left 01/04/2020 Eylea OS for DME per NNB INTRAVITREAL INJECTION Left 02/15/2020 Eylea OS for DME per NNB INTRAVITREAL INJECTION Left 03/21/2020 Eylea OS for DME per NNB IR DIALYSIS ACCESS - AV FISTULA EVALUATIONS 06/17/2020 IR Dialysis Access - AV Fistula Evaluations 06/17/2020 Kimani Larson MD [facility] IR DIALYSIS ACCESS - AV FISTULA EVALUATIONS 11/04/2020 IR Dialysis Access - AV Fistula Evaluations 11/04/2020 Kimani Larson MD [facility] IR DIALYSIS ACCESS - AV FISTULA EVALUATIONS 01/25/2022 IR Dialysis Access - AV Fistula Evaluations 01/25/2022 Roderick Castillo MD [facility] PERIPHERAL IRIDOTOMY 04/06/2012 OD Swendris PRO AMPUTATION METATARSAL+TOE, SINGLE Right 01/04/2024 AMPUTATION, TRANSMETATARSAL TOE, ONE TOE (WRVU 6.64) performed by Thania Wesley MD at [facility] PRO EXTRACAPSULAR CATARACT RMVL INSERTION IO LENS PROSTH CPLX WO ECP 07/18/2012 PRO EXTRACAPSULAR CATARACT RMVL INSERTION IO LENS PROSTH W/O ECP 11/29/2012 CATARACT EXTRACTION, EXTRACAPSULAR, W/ LENS INSERTION performed by Erasmo George MD at [facility] PRO REPAIR COMPLEX RETINA DETACH VITRECTOMY & MEMB PEEL 04/03/2012, 04/03/12 REPAIR COMPLEX RETINAL DETACHMENT, W/ VITRECTOMY, MEMBRANE PEELING performed by Matteo Diane MD at [facility] PRO REPAIR COMPLEX RETINA DETACH VITRECTOMY & MEMB PEEL 07/31/2012 REPAIR COMPLEX RETINAL DETACHMENT, W/ VITRECTOMY, MEMBRANE PEELING performed by Matteo Diane MD at [facility] PRO REPAIR COMPLEX RETINA DETACH VITRECTOMY & MEMB PEEL 01/08/2013 REPAIR COMPLEX RETINAL DETACHMENT, W/ VITRECTOMY, MEMBRANE PEELING performed by Matteo Diane MD at [facility] PRO TX EXTENSIVE RETINOPATHY, PHOTOCOAGULATION 07/06/2011 OS CBC PRO TX EXTENSIVE RETINOPATHY, PHOTOCOAGULATION 07/27/2011 OS CBC PRO TX EXTENSIVE RETINOPATHY, PHOTOCOAGULATION 09/21/2011 OS CBC PRO TX EXTENSIVE RETINOPATHY, PHOTOCOAGULATION 12/20/2011 OS MANN PRO TX EXTENSIVE RETINOPATHY, PHOTOCOAGULATION 01/04/2012 OS MANN VITRECTOMY, W/ MEMBRANE STRIPPING 04/03/2012 OD, CBC YAG CAPSULOTOMY 11/15/2013 OS - Dr George 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) Hyperopia Acute angle-closure glaucoma of right eye HTN (hypertension) GERD (gastroesophageal reflux disease) Proliferative diabetic retinopathy, both eyes Social History: Home set-up: pt lives with spouse and son, multi-level house but pt resides on the first floor Bathroom Set-up: WIS with GB, SC, elevated toilet Stairs: ramp entrance Baseline Mobility: independent with no device around the house, rollator within the community, ableto complete ADLs without assistance, son assist with iADLs Equipment at home: cane, rollator, SC Fall history: none Precautions/Special Considerations: full code; fall precautions; RLE WBAT in offloading shoe (pt fit with size medium); supplemental oxygen (pt wears ~2L at baseline, has home concentrator and portable tank); renal diet; HD AV access LUE; PIV RUE; wound R 5th toe; AAT Mobility and Positioning Recommendations: Pt. to utilize CGA and rollator for ambulation and transfers with nursing. Please encourage up to chair for meal times as able. Pt encouraged to ambulate frequently with staff, getting into the bathroom for toileting and walking out in the rivera >/= 3 times daily as able. Subjective: Pt pleasant and cooperative Objective: Pt seen for evaluation today Pain: no c/o pain at rest or with activity Vital Signs: VSS on 1L NC Mental Status: alert, oriented to person, place, and time Vision: impaired at baseline, diabetic retinopathy Skin: R 5th toe C/D/I in apryl wrap Musculoskeletal: ROM: WFL BLEs Strength: WFL BLEs Sensation: intact LT BLEs Bed Mobility: Supine to Sit: CGA with use of bed rail Sit to Supine: pt remained in bedside recliner Transfers: Sit to Stand: CGA from EOB to rollator Stand to Sit: CGA to recliner with rollator Bed to Chair: via stand step transfer with rollator, CGA Gait: Distance: ~175 ft Device used: rollator Level of assist: CGA Gait mechanics: slow sonya, step to pattern, good adherence to heel WB in offloading shoe RLE Stairs: N/A - ramp entrance Balance: Sitting Static: Good EOB Sitting Dynamic: Good- due to body habitus Standing Static: Good- rollator Standing Dynamic / Gait: Fair+ rollator Education: patient has been educated on Bed mobility, Transfers, Precautions/protocol, Gait , Activity pacing/Energy conservation, Role of therapy, Balance, Discharge planning, and Orthotic and verbalizes and demonstrates understanding. Patient status, treatment, and mobility recommendations discussed with nursing. Assessment: Sindi Gurrola Rudolph was seen today for physical therapy evaluation. Pt presents s/p partial R 5th ray resection, RLE WBAT in offloading shoe. Pt fitted with size medium orthotic. Instructed on wearing schedule in order to promote adequate wound healing. Pt demonstrated fair strength and balance to complete functional transfers and ambulate ~175 ft with rollator and CGA while maintaining heel WB in offloading shoe. Vitals stable throughout on 1L NC. No further IP PT services warranted based on pt's functional status. Please encourage use of offloading shoe to RLE and frequent ambulation while hospitalized. Recommend home, no services needed, when medically stable. Thank you for the consult. Inpatient Physical Therapy Plan: discharge inpatient Physical Therapy services Discharge Recommendations: Based on current findings- home Consult Recommendations: No other consults recommended at this time. Equipment needs: walker, four wheeled / rollator PT Evaluation Code Rationale: Diagnosis & Pertinent Co-Morbidities, personal factors, and present illness affecting Plan of Care: (see above); Additional personal factors or co- morbidities that impact plan: Total # of Factors: 0 1-2 3+ X Examination of body system impairments, functional limitations and behaviors, and/or participation restrictions. Addressing 1-2 elements Addressing 3 + elements X Addressing 4 + elements Clinical presentation: See assessment above. Stable/Uncomplicated Evolving/Fluctuating Symptoms Unstable/Unpredictable X Clinical decision making of low complexity based on pt's functional performance as outlined in thisevaluation. Time IN / OUT: 09:40-10:00 Total Time: 20 minutes; Rogelio Vera, PT Pager: [phone] Physical Therapy Inpatient Rehabilitation Department * Initial Assessments - Marina Boyer, OT - 01/06/2024 9:40 AM EDT Occupational Therapy Evaluation Patient profile: Sindi Rudolph is a 63 y.o. male admitted on 01/04/2024. Pt with PMH of poorly controlled type 2 diabetes mellitus complicated by proliferative diabetic retinopathy and peripheral neuropathy, end-stage renal disease on dialysis, morbid obesity, and essential hypertension who presents with a worsening right fifth toe ulcer. Pt is s/p partial R 5th ray resection on 01/04/[address] Wesley. Past medical history: Past Medical History: Diagnosis Date Acute angle-closure glaucoma of right eye 04/06/2012 Anxiety Arthritis Doan's palsy 2020 Cataract. Dense with synechiae. Right eye. 06/21/2012 Cellulitis 10/19/2018 Closed fracture of right proximal humerus 07/30/2019 Complication of anesthesia Had ?laryngospasm post extubation in OR 04/03/12, requrring brief reintubation. Diabetes mellitus 1995 Difficult intubation Two attempts (Mac3 and George 3 successful x 1 attempt. Suggest videolaryngoscope would be easier for future. DM eyes GERD (gastroesophageal reflux disease) no regular tx Hyperlipidemia Hypertension Neuromuscular disorder Type 2 diabetes mellitus with stage 5 chronic kidney disease not on chronic dialysis, with long-term current use of insulin Past surgical history: Past Surgical History: Procedure Laterality Date CATARACT EXTRACTION, EXTRACAPSULAR, W/ LENS INSERTION 11/29/12 OS - DMM CATARACT REMOVAL 07/18/12 OD Swendris INTRAVITREAL INJECTION Left 10/12/2019 Eylea OS for DME per NNB INTRAVITREAL INJECTION Left 11/09/2019 Eylea OS for DME per NNB INTRAVITREAL INJECTION Left 12/07/2019 Eylea OS for DME per NNB INTRAVITREAL INJECTION Left 01/04/2020 Eylea OS for DME per NNB INTRAVITREAL INJECTION Left 02/15/2020 Eylea OS for DME per NNB INTRAVITREAL INJECTION Left 03/21/2020 Eylea OS for DME per NNB IR DIALYSIS ACCESS - AV FISTULA EVALUATIONS 06/17/2020 IR Dialysis Access - AV Fistula Evaluations 06/17/2020 Kimani Larson MD [facility] DIALYSIS ACCESS - AV FISTULA EVALUATIONS 11/04/2020 IR Dialysis Access - AV Fistula Evaluations 11/04/2020 Kimani Larson MD [facility] IR DIALYSIS ACCESS - AV FISTULA EVALUATIONS 01/25/2022 IR Dialysis Access - AV Fistula Evaluations 01/25/2022 Roderick Castillo MD [facility] PERIPHERAL IRIDOTOMY 04/06/2012 OD Swendris PRO AMPUTATION METATARSAL+TOE, SINGLE Right 01/04/2024 AMPUTATION, TRANSMETATARSAL TOE, ONE TOE (WRVU 6.64) performed by Thania Wesley MD at [facility] PRO EXTRACAPSULAR CATARACT RMVL INSERTION IO LENS PROSTH CPLX WO ECP 07/18/2012 PRO EXTRACAPSULAR CATARACT RMVL INSERTION IO LENS PROSTH W/O ECP 11/29/2012 CATARACT EXTRACTION, EXTRACAPSULAR, W/ LENS INSERTION performed by Erasmo George MD at [facility] PRO REPAIR COMPLEX RETINA DETACH VITRECTOMY & MEMB PEEL 04/03/2012, 04/03/12 REPAIR COMPLEX RETINAL DETACHMENT, W/ VITRECTOMY, MEMBRANE PEELING performed by Matteo Diane MD at [facility] PRO REPAIR COMPLEX RETINA DETACH VITRECTOMY & MEMB PEEL 07/31/2012 REPAIR COMPLEX RETINAL DETACHMENT, W/ VITRECTOMY, MEMBRANE PEELING performed by Matteo Diane MD at [facility] PRO REPAIR COMPLEX RETINA DETACH VITRECTOMY & MEMB PEEL 01/08/2013 REPAIR COMPLEX RETINAL DETACHMENT, W/ VITRECTOMY, MEMBRANE PEELING performed by Matteo Diane MD at [facility] PRO TX EXTENSIVE RETINOPATHY, PHOTOCOAGULATION 07/06/2011 OS CBC PRO TX EXTENSIVE RETINOPATHY, PHOTOCOAGULATION 07/27/2011 OS CBC PRO TX EXTENSIVE RETINOPATHY, PHOTOCOAGULATION 09/21/2011 OS CBC PRO TX EXTENSIVE RETINOPATHY, PHOTOCOAGULATION 12/20/2011 OS MANN PRO TX EXTENSIVE RETINOPATHY, PHOTOCOAGULATION 01/04/2012 OS MANN VITRECTOMY, W/ MEMBRANE STRIPPING 04/03/2012 OD, CBC YAG CAPSULOTOMY 11/15/2013 OS - Dr George Activity Orders: Activity Orders (From admission to next 72h) Start Ordered 01/04/24 1805 Weight bearing status UNTIL DISCONTINUED Process Instructions: If individualized per extremity weight restrictions are being indicated, please complete a NEW order for EACH extremity. Question Answer Comment Weight bearing of: As Tolerated (up to 100%) Extremity / Laterality: LOWER RIGHT extremity 01/04/24 1802 Unscheduled Activity as tolerated PRN 01/04/24 0618 Precautions/Special Considerations: full code; fall precautions; RLE WBAT in offloading shoe (pt fit with size medium); supplemental oxygen (pt wears ~2L at baseline, has home concentrator and portable tank); renal diet; HD AV access LUE; PIV RUE; wound R 5th toe; AAT Social History: Home set-up: pt lives with spouse and son, multi-level house but pt resides on the first floor Bathroom Set-up: WIS with GB, SC, elevated toilet Stairs: ramp entrance Baseline Mobility: independent with no device around the house, rollator within the community, ableto complete ADLs without assistance, son assist with iADLs Equipment at home: cane, rollator, SC Fall history: none Subjective: I have a dressing stick and telecom analyst at home Objective: Seen today for OT evaluation. Cognitive Status/Behavior - Behavior / Mood: alert and cooperative - Alert and oriented to: person, place, time, and situation - Follows commands: 2 step and 100% of the time - Attention: WFL - Safety awareness: WFL and good safety precautions Vision & Perception: Pt has glaucoma at baseline Communication: WFL Hearing: WFL Range of motion, strength, coordination: Hand dominance: right Bilateral UEs are within functional limitations for basic ADLs LE limitations: WBAT R LE with forefoot offloading shoe. No restrictions on L Sensation: Intact Activities of Daily Living: Self-feeding: Independent Grooming: Independent Dressing: Min A to don socks (pt uses adaptive equipment at home). Able to don hospital pants and t-shirt independently. Bathing: Deferred this date. Pt as walk-in shower with a shower chair. Do not anticipate difficultywith this task once pt is cleared to shower from a surgical standpoint. Toileting: Transfer: SBA with 4WW (practiced dry run only) Hygiene: Not assessed Functional Mobility: Supine to sit: SBA with use of bed rails Sit to stand: CGA to 4WW Ambulation: CGA around unit with 4WW Stand to sit: CGA Sit to supine: Pt left in recliner chair at end of session Balance: ?? Static seated balance: Normal, Independent ?? Dynamic seated balance: Normal, Independent ?? Static standing balance: Fair, CgA ?? Dynamic standing balance: Fair, CgA Vitals: On 2L of O2 via NC (baseline). VSS throughout session Pain: Not quantified this session. Pain did not limit participation in functional activity Skin: Gauze dressing to R toes is CDI Education: patient have been educated on Role of occupational therapy/rehabilitation, Transfers, Assistive device/technique, Adaptive equipment training, ADL, Precautions/Protocol, Functional Mobility, Activity pacing/Energy conservation, Home Management, Balance, Recommendations, and Discharge planning and verbalizes understanding Pt left in the recliner chair at end of session with all needs met, call doan within reach and VSS.RN and team notified via [id number] conversation regarding Pt status, d/c recommendations, and DME needs. Assessment: Pt has been seen for occupational therapy evaluation. Sindi Rudolph presents with the following performance skill deficits and client factors: increased pain, precautions / bracing, and compromised mobility status. These performance deficits have led to activity limitations and participation restrictions in the following areas of occupation: dressing, bathing, transfers / mobility,home management, and community mobility. Pt seen for OT evaluation this date. Pt cooperative and agreeable to assessment. Supervision - CGA for functional transfers and mobility with use of 4WW. Min A for LB dressing, but pt reports he has adaptive equipment at home that he uses to assist. Pt has walk-in shower and shower chair in place and does not have to navigate stairs at home. Pt lives with his and adult son who is able to assist as needed. No further OT intervention is indicated within the acute care setting. Recommend discharge home once medically cleared. Equipment Needs Upon Discharge (OT): None Anticipated Discharge Disposition (OT): home Other Recommendations: OOB to chair for all meals Ambulate as tolerated with 4WW Encourage participation in ADL's by providing set up assist on tray table and physical assist only as needed Promote normalcy by encouraging participation in common daily tasks & leisure activities by providing set up assist Other Recommendations: No other consults recommended at this time. Plan: OT: Therapy Frequency (OT): evaluation only Total Minutes, Occupational Therapy: 20 ([id number] (Low Eval)) 2017 OT Evaluation Code Rationale: Diagnosis & Pertinent Co-Morbidities affecting Plan of Care: see PMHx Occupational Profile & Client History: Brief Expanded Extensive X Assessment of Occupational Performance: 1-3 performance deficits X 3-5 performance deficits 5 + performance deficits Clinical Decision Making: Low Moderate High X Clinical decision making of low complexity using standardized patient assessment instrument and measurable assessment of functional outcome. Marina Boyer, OTR/L She/her Occupational Therapy Rehabilitation Department Pager: [phone] * Plan of Care - German Prescott RN - 01/06/2024 6:57 AM EDT OUTCOME EVALUATION NOTE: OUTCOME SUMMARY: Alert oriented x 4. On Nasal cannula 2l and Uses the Cpap at night. Denies shortness of breath, chest pain, nausea or vomiting. Patient's pain controlled with scheduled and PRN pain medication.. No adverse events this shift. VSS. Will continue to monitor and help patient reach d/c goals. PLAN MOVING FORWARD: Pain control Mobilize D/c planning INDIVIDUALIZED FALL PREVENTION: Patient is currently a high risk to Fall. Patient educated on bed/chair alarm, demonstrates proper use of call dona and verbalizes understanding of fall preventions implemented. Patient-specific fall risk factors per assessment: [current deficits]: Pain, Medications, Hospital Environment. Assistance [level of assistance required for transfers and ambulation]: Supervision [direct monitoring required during toileting and ADLs]: Eyes on per unit protocol when OOB/with ADL's Surveillance [continuous indirect monitoring]: Lanre Braxtonful Rounding, Nurse Knowledge Exchange * Consult Note - Mitzy Houston [facility] - 01/05/2024 3:02 PM EDT Clinical Pharmacist Note-Vanc Sindi Rudolph [id number] Sindi Rudolph is a 63 y.o. male is being monitored due to antibiotic therapy which includes intravenous vancomycin. Regimen: Vancomycin 1750 mg once; dosed intermittently Indication: empiric coverage of bone/joint infection Targeted Goal Range: 15 - 20 mcg/mL Pharmacokinetic information: Wt Readings from Last 1 Encounters: 01/04/24 99.8 kg (220 lb) Ht Readings from Last 1 Encounters: 01/04/24 162.6 cm (5' 4) Labs: Vancomycin: No results found for: VANCOTR Vancomycin random level (pre-HD) = 26.6 Creatinine clearance: Creatinine (mg/dL) Date Value 01/05/2024 11.45 (CRIT) 06/17/2020 2.44 (H) Recommendations: Dosing recommendations: Based on this information a dose of vancomycin does not need to be ordered after dialysis today. Subsequent dosing should be 1500 mg after the next HD session. Monitoring recommendations: Recheck vancomycin serum trough levels shortly before the next hemodialysis session. It is assumed 30% of the drug will be removed during a standard 4 hour HD session. We will continueto monitor the patient as long as he remains on vancomycin therapy. Please watch SCr, BUN and fluidstatus closely. Please page the care area pharmacist with any questions you may have. Alternately, during off-hours you may call [phone] to contact a pharmacist. Mitzy Houston RPH Pager [phone] * Consult Note - Jodi Coles RN - 01/05/2024 1:35 PM EDTSummary: VAS ROUNDING During VAS Purposeful Rounding, an assessment of your patient's venous access was performed fby theVascular Access Service. The following tasks were performed if needed and communicated to the bedside RN Choose all that apply: [] PIV(s) checked for patency if daily need for flush needs to be performed [] CVAD was checked for patency if daily flush needs to be performed [] IV tubing clamped or capped if needed [] Visual inspection of your patient's central line dressing integrity [x] Review of indications for vascular access [] A photo was taken of your patient's central line [x] Visual inspection of your patient's IV dressing integrity [] Other While rounding an intervention was needed and communicated to the bedside RN Choose all that apply: [] Nonocclusive IV dressing addressed [] Nonocclusive CVAD dressing (please identify type of line) [] Infusion site leaking [] IV not patent and removed [] IV not indicated [] IV placed [] IV restarted [] Implanted Port, PICC or ML dressing changed if needed (either PRN or weekly) [] Other * Plan of Care - German Prescott RN - 01/05/2024 6:17 AM EDT OUTCOME EVALUATION NOTE: OUTCOME SUMMARY: Alert oriented x 4. On Nasal cannula 2l and Uses the Cpap at night. @ 2029 Four eye head to toe skin assessment with Reid Ferreira RN and this RN. No skin breakdown noted. Pt woke up short of breath for a couple of second and place the cpap. Patient stated he feel better with the cpap at night. Smallsoft brown stool . Patient's pain controlled with scheduled and PRN pain medication.@629 gave report to Guy of hemodialysis .Patient cooperative with care and resting between care. No adverse events this shift. VSS. Will continue to monitor and help patient reach d/c goals. PLAN MOVING FORWARD: Pain control Mobilize D/c planning INDIVIDUALIZED FALL PREVENTION: Patient is currently a high risk to Fall. Patient educated on bed/chair alarm, demonstrates proper use of call doan and verbalizes understanding of fall preventions implemented. Patient-specific fall risk factors per assessment: [current deficits]: Pain, Medications, Hospital Environment. Assistance [level of assistance required for transfers and ambulation]: Supervision [direct monitoring required during toileting and ADLs]: Eyes on per unit protocol when OOB/with ADL's Surveillance [continuous indirect monitoring]: Masimo, Purposeful Rounding, Nurse Knowledge Exchange * Op Note - Thania Wesley MD - 01/04/2024 3:45 PM EDT [facility] [place] Patient Name: Sindi Rudolph : [id number] MR#: [id number] Case Date: 01/04/2024 Surgeon: Surgeons and Role: * Thania Wesley MD - Primary * Jose Bryant MD - Resident - Assisting * Ender Giang MD - Resident - Assisting Preoperative diagnosis: Osteomyelitis R 5th toe Postoperative diagnosis: Osteomyelitis R 5th toe s/p 5th ray partial amputation Procedure(s) (LRB): AMPUTATION, TRANSMETATARSAL TOE, ONE TOE (WRVU 6.64) (Right) MODIFIER WOUND VAC (N/A) Anesthesia: MAC Estimated Blood Loss: 5 mL Specimens removed during surgery: ID Type Source Tests Collected by Time Destination A : Right Fifth Toe Bone Toe(s), Right Foot BONE CULTURE, AEROBIC & ANAEROBIC Thania Wesley MD 01/04/2024 1551 Drains: None Surgical Closure: Primary Closure - skin incision is completely closed without any wires, bart, drains or other devices Disposition: awakened from anesthesia, extubated and taken to the recovery room in a stable condition, having suffered no apparent untoward event. Condition: doing well without problems (Please see the Surgical Encounter Summary for any Implant and Specimen details pertinent to this patient.) HPI/Surgical Indications: Sindi Rudolph is a 63 y.o. male with a history of poorly controlled type 2 diabetes mellitus complicated by proliferative diabetic retinopathy and peripheral neuropathy, end-stage renal disease on dialysis, morbid obesity, and essential hypertension who presents with a worsening right fifth toe ulcer for the last week. XR and MRI demonstrated osteomyelitis of the 5th toe to level of MTP joint. Discussed medical vs surgical management of the wound in the form of 5th ray partial resection. Benefits of surgery as a means of definitive treatment for infection and skinwounds was discussed. Risks including bleeding, infection, damage to nerves and vessels, wound healing complications was discussed. Patient would like to proceed with amputation. Procedure Description: The patient was identified in the preoperative holding area, where the surgical consent was reviewed, and the operative site was marked. The patient was then brought back to the operating room, where he was transferred to the table in the supine position, making sure that allbony prominences were well padded. A general anesthetic was administered. A tourniquet was placed high on the operative leg but was not inflated. That leg was then prepped and draped in the usual sterile fashion. A surgical timeout was held in accordance with [facility] protocol. The patient received scheduled antibiotic prior to incision. A racquet-shaped incision was made over the 5th metatarsal circumferentially around the base of the5th toe. Electrocautery was then used to dissect through the soft tissues. A microsagittal saw was then used to make an oblique osteotomy approximately 2 cm from the base of the metatarsal. The distal portion of the metatarsal, along with the proximal middle and distal phalanx of the small toe was then excised using electrocautery. The osteotomy orientation was oblique to avoid sharp bony prominences on the skin edges. Hemostasis was then achieved with electrocautery. An excisional debridement was performed, removing all devitalized and infected-appearing soft tissue and bone using a rongeur and coon scissor approximately 8cc of soft tissue. The wound was copiously irrigated with 3 L of normal saline. Following thorough irrigation, the skin edges were then trimmed using a scalpel. The deep soft tissues were then approximated using 2-0 vicryl suture. The skin was then approximated with 3-0 nylon suture in a vertical mattress fashion, ensuring no excessive tension on skin edges. The woun d was dressed with Xeroform, 4 x 4, Kerlex and APRYL. The patient was placed in a forefoot offloadingshoe. Postoperative plan: WBAT in forefoot offloading shoe, wound check and suture removal in 2-3 weeks Will follow intraoperative cultures, antibiotic regimen pending speciation DVT prophylaxis: Per primary, recommend Lovenox or aspirin 81 mg twice daily Surgical Infection Prevention Bundle Used? No Attestation: Case Date: 01/10/24 I was present and I participated during the entire procedure (does not need to include opening and closing). Thania Wesley MD 01/10/24 * Plan of Care - Delfina Millard RN - 01/04/2024 2:41 PM EDT Report given to MORENO Domínguez RN * Consult Note - Cynthia Gerber MD - 01/04/2024 9:32 AM EDT NEPHROLOGY CONSULT NOTE Reason for consult: ESRD/HD HPI: 63yo man with ESRD on HD ([facility], MWF, AVF) presenting with ischemic/painful toe requiring amputation. Other than foot pain, patient denies any complaints. His last dialysis was 2 days ago. Past Medical History: Diagnosis Date Acute angle-closure glaucoma of right eye 04/06/2012 Anxiety Arthritis Doan's palsy 2020 Cataract. Dense with synechiae. Right eye. 06/21/2012 Cellulitis 10/19/2018 Closed fracture of right proximal humerus 07/30/2019 Complication of anesthesia Had ?laryngospasm post extubation in OR 04/03/12, requrring brief reintubation. Diabetes mellitus 1994 Difficult intubation Two attempts (Mac3 and George 3 successful x 1 attempt. Suggest videolaryngoscope would be easier for future. DM eyes GERD (gastroesophageal reflux disease) no regular tx Hyperlipidemia Hypertension Neuromuscular disorder Type 2 diabetes mellitus with stage 5 chronic kidney disease not on chronic dialysis, with long-term current use of insulin Past Surgical History: Procedure Laterality Date CATARACT EXTRACTION, EXTRACAPSULAR, W/ LENS INSERTION 11/29/12 OS - DMM CATARACT REMOVAL 07/18/12 OD Swendris INTRAVITREAL INJECTION Left 10/12/2019 Eylea OS for DME per NNB INTRAVITREAL INJECTION Left 11/09/2019 Eylea OS for DME per NNB INTRAVITREAL INJECTION Left 12/07/2019 Eylea OS for DME per NNB INTRAVITREAL INJECTION Left 01/04/2020 Eylea OS for DME per NNB INTRAVITREAL INJECTION Left 02/15/2020 Eylea OS for DME per NNB INTRAVITREAL INJECTION Left 03/21/2020 Eylea OS for DME per NNB IR DIALYSIS ACCESS - AV FISTULA EVALUATIONS 06/17/2020 IR Dialysis Access - AV Fistula Evaluations 06/17/2020 Kimani Larson MD [facility] IR DIALYSIS ACCESS - AV FISTULA EVALUATIONS 11/04/2020 IR Dialysis Access - AV Fistula Evaluations 11/04/2020 Kimani Larson MD [facility] IR DIALYSIS ACCESS - AV FISTULA EVALUATIONS 01/25/2022 IR Dialysis Access - AV Fistula Evaluations 01/25/2022 Roderick Castillo MD [facility] PERIPHERAL IRIDOTOMY 04/06/2012 OD Efren PRO EXTRACAPSULAR CATARACT RMVL INSERTION IO LENS PROSTH CPLX WO ECP 07/18/2012 PRO EXTRACAPSULAR CATARACT RMVL INSERTION IO LENS PROSTH W/O ECP 11/29/2012 CATARACT EXTRACTION, EXTRACAPSULAR, W/ LENS INSERTION performed by Erasmo George MD at [facility] PRO REPAIR COMPLEX RETINA DETACH VITRECTOMY & MEMB PEEL 04/03/2012, 04/03/12 REPAIR COMPLEX RETINAL DETACHMENT, W/ VITRECTOMY, MEMBRANE PEELING performed by Matteo Diane MD at [facility] PRO REPAIR COMPLEX RETINA DETACH VITRECTOMY & MEMB PEEL 07/31/2012 REPAIR COMPLEX RETINAL DETACHMENT, W/ VITRECTOMY, MEMBRANE PEELING performed by Matteo Diane MD at [facility] OR PRO REPAIR COMPLEX RETINA DETACH VITRECTOMY & MEMB PEEL 01/08/2013 REPAIR COMPLEX RETINAL DETACHMENT, W/ VITRECTOMY, MEMBRANE PEELING performed by Matteo Diane MD at [facility] PRO TX EXTENSIVE RETINOPATHY, PHOTOCOAGULATION 07/06/2011 OS CBC PRO TX EXTENSIVE RETINOPATHY, PHOTOCOAGULATION 07/27/2011 OS CBC PRO TX EXTENSIVE RETINOPATHY, PHOTOCOAGULATION 09/21/2011 OS CBC PRO TX EXTENSIVE RETINOPATHY, PHOTOCOAGULATION 12/20/2011 OS MANN PRO TX EXTENSIVE RETINOPATHY, PHOTOCOAGULATION 01/04/2012 OS MANN VITRECTOMY, W/ MEMBRANE STRIPPING 04/03/2012 OD, CBC YAG CAPSULOTOMY 11/15/2013 OS - Dr George Current Facility-Administered Medications Medication Dose Route Frequency Provider Last Rate Last Admin amLODIPine (Norvasc) tablet 10 mg 10 mg Oral Daily Ramírez Gasca DO 10 mg at 01/04/24 0854 aspirin tablet 325 mg 325 mg Oral Daily Ramírez Gasca DO 325 mg at 01/04/24 0855 bumetanide (Bumex) tablet 2 mg 2 mg Oral BID Ramírez Gasca DO 2 mg at 01/04/24 0854 gabapentin (Neurontin) capsule 300 mg 300 mg Oral TID Ramírez Gasca DO 300 mg at 01/04/24 0854 sertraline (Zoloft) tablet 50 mg 50 mg Oral Daily Ramírez Gasca DO 50 mg at 01/04/24 0855 sevelamer carbonate (Renvela) tablet 1,600 mg 1,600 mg Oral TID Ramírez Gasca, sodium chloride 0.9 % (flush) (BD PosiFlush Normal Saline 0.9) flush 5 mL 5 mL Intravenous BID Ramírez Gasca DO 5 mL at 01/04/24 0901 sodium chloride 0.9 % (flush) (BD PosiFlush Normal Saline 0.9) flush 5-20 mL 5- 20 mL Intravenous Q1Min PRN Ramírez Gasca DO lidocaine (Xylocaine) 1% (10 mg/mL) injection 3 mg 0.3 mL Subcutaneous Once PRN Ramírez Gasca DO melatonin tablet 3 mg 3 mg Oral Nightly PRN Ramírez Gasca DO heparin (porcine) (5,000 units/1 mL) subcutaneous injection 5,000 Units 5,000 Units Subcutaneous Q8H RICHELLE Ramírez Gasca DO 5,000 Units at 01/04/24 0903 acetaminophen (Tylenol) tablet 650 mg 650 mg Oral Q6H PRN Ramírez Gasca DO polyethylene glycoL (Miralax) packet 17 g 17 g Oral Daily PRN Ramírez Gasca DO And bisacodyL (Dulcolax) suppository 10 mg 10 mg Rectal Daily PRN Ramírez Gasca DO And bisacodyl EC (Dulcolax) tablet 10 mg 10 mg Oral BID PRN Ramírez Gasca DO And lactulose (Chronulac) (0.67 gram/mL) oral liquid 20 g 20 g Oral Daily PRN Ramírez Gasca DO And lactulose (Chronulac) (0.67 gram/mL) oral liquid 20 g 20 g Oral Daily PRN Ramírez Gasca DO And magnesium citrate oral liquid 296 mL 296 mL Oral Once PRN Ramírez Gasca DO ondansetron ODT (Zofran-ODT) disintegrating tablet 4 mg 4 mg Oral Q8H PRN Ramírez Gasca DO Or ondansetron (pf) (Zofran) (2 mg/mL) injection 4 mg 4 mg Intravenous Q8H PRN Ramírez Gasca, DO glucose (Glutose) 40% oral geL 15-30 g of glucose Buccal Q15 Min PRN Ramírez Gasca, DO Or dextrose 10% infusion 250 mL Intravenous Q15 Min PRN Ramírez Gasca DO Or glucagon (Glucagen) (1 mg/mL) injection solution 1 mg 1 mg Intramuscular Q15 Min PRN Ramírez Gasca, DO insulin lispro (HumaLOG;Admelog) (100 unit/mL) subcutaneous injection vial 0-8 Units 0-8 Units Subcutaneous TID Ramírez Gasca, insulin glargine-ygfn (Semglee) (100 unit/mL) subcutaneous injection vial 30 Units 30 Units Subcutaneous Daily Ramírez Gasca, insulin lispro (HumaLOG;Admelog) (100 unit/mL) subcutaneous injection vial 1-6 Units 1-6 Units Subcutaneous Q4H [facility] Ramírez Gasca DO 3 Units at 01/04/24 0615 piperacillin-tazobactam (Zosyn) 3.375 g vial attach to sodium chloride 0.9% 50 mL Mini-Bag Plus 3.375 g Intravenous Q12H Ramírez Gasca DO 12.5 mL/hr at 01/04/24 0613 3.375 g at 01/04/24 0613 vancomycin- intermittent dosing per levels NOT APPLICABLE Per Pharmacy Larisa George MD vancomycin (Vancocin) 1.75 gram in sodium chloride 0.9% 500 mL infusion 1,750 mg Intravenous Once Ramírez Gasca, DO 250 mL/hr at 01/04/24 0856 1,750 mg at 01/04/24 0856 Current Outpatient Medications Medication Sig Dispense Refill amLODIPine (Norvasc) 10 mg tablet Take 1 tablet by mouth daily. 30 tablet 11 NovoLOG Flexpen U-100 Insulin Insulin Pen Inject 6 Units subcutaneously 3 times daily (with meals).ICD 10 Code: E11.65 (Patient taking differently: Inject 12-16 Units subcutaneously 3 times daily (with meals). ICD 10 Code: E11.65) 15 mL 5 Basaglar KwikPen U-100 Insulin 100 unit/mL (3 mL) pen Inject 20 Units subcutaneously daily. ICD 10 Code: E11.65 (Patient taking differently: Inject 50 Units subcutaneously daily. ICD 10 Code: E11.65)15 mL 5 sevelamer carbonate (Renvela) 800 mg Tablet Take 1 tablet by mouth 3 times daily (with meals). (Patient taking differently: Take 1,600 mg by mouth 3 times daily (with meals).) aspirin 325 mg Tablet Take 1 tablet by mouth daily. 90 tablet 3 bumetanide (BUMEX) 1 mg Tablet Take 2 mg by mouth 2 times daily. gabapentin (NEURONTIN) 300 mg capsule Take 300 mg by mouth 3 times daily. sertraline (ZOLOFT) 25 mg tablet Take 50 mg by mouth daily. Trulicity 0.75 mg/0.5 mL Pen Injector Eleven Jamesuch Verio [place] [facility] [place]SE THREE TIMES A DAY insulin needles, disposable, 31 gauge x 3/16 Needle Inject 1 each subcutaneously 4 times daily. ICD 10 Code: E11.65 150 each 5 epoetin babs-epbx (Retacrit) 10,000 unit/mL Solution Inject 1 mL subcutaneously once as needed in Dialysis. 1 mL melatonin 3 mg Tablet Take 2 tablets by mouth nightly. blood sugar diagnostic strips Strip Use to check blood sugar 3 times daily 200 each 11 losartan (COZAAR) 50 mg Tablet Take 50 mg by mouth daily. B Complex-Vitamin C-Folic Acid (NEPHROCAP) 1 mg Capsule Take 1 capsule by mouth daily. Allergies Allergen Reactions Mirtazapine Other reaction(s): Other (see comments) Agitation, Nightmares. Family History Problem Relation Age of Onset Glaucoma Mother Diabetes Mother Diabetes Father Hypertension Father Cataracts Neg Hx Macular Degeneration Neg Hx Retinal Detachment Neg Hx Anesthesia Reaction Neg Hx Amblyopia Neg Hx Blindness Neg Hx Cancer Neg Hx Strabismus Neg Hx Stroke Neg Hx Thyroid Disease Neg Hx Heart Disease Neg Hx PE: Vitals: 01/04/24 0145 01/04/24 0200 01/04/24 0700 01/04/24 0812 BP: 136/69 140/70 149/70 142/64 Pulse: 77 78 73 74 Resp: 15 14 8 19 Temp: 36.6 ??C (97.9 ??F) TempSrc: Oral SpO2: 98% 98% 99% Weight: Height: Gen - Awake and alert. NAD. HEENT - NCAT. Clear sclerae. Resp - Lying flat. Respirations are unlabored. Clear lungs. CV - RRR. Extr - No LE edema. Recent Results (from the past 18 hour(s)) CBC (with Diff) Collection Time: 01/04/24 3:41 AM Result Value Ref Range White Blood Cell 6.37 4.00 - 9.50 x10(3)/mcL Red Blood Cell 3.43 (L) 4.58 - 5.54 x10(6)/mcL Hemoglobin 10.5 (L) 13.7 - 16.5 g/dL Hematocrit 33.2 (L) 40.5 - 48.5 % Mean Cell Volume 96.8 (H) 82.9 - 93.1 fL Mean Cell Hemoglobin 30.6 27.5 - 32.1 pg Mean Cell Hemoglobin Concentration 31.6 (L) 32.0 - 35.7 g/dL Platelet 172 145 - 357 x10(3)/mcL Mean Platelet Volume 10.0 7.6 - 12.9 fL RDW Standard Deviation 59.5 (H) 36.0 - 45.0 fL RDW coefficient of variation 16.7 (H) 11.4 - 13.8 % NRBC% auto 0.0 % NRBC Absolute 0.00 0.00 - 0.00 x10(3)/mcL Neutrophil % 60.7 % Neutrophil Absolute (ANC) - Automated 3.87 1.70 - 6.10 x10(3)/mcL Lymph % 19.2 % Lymph Absolute 1.22 0.90 - 3.20 x10(3)/mcL Monocyte % 7.4 % Monocyte Absolute 0.47 0.30 - 0.90 x10(3)/mcL Eos % 10.8 % Eos Absolute 0.69 (H) 0.00 - 0.40 x10(3)/mcL Basophil % 1.3 % Baso Absolute 0.08 0.00 - 0.10 x10(3)/mcL Immature Gran % 0.6 % Immature Gran Absolute 0.04 0.00 - 0.04 x10(3)/mcL Basic Metabolic Panel Collection Time: 01/04/24 3:41 AM Result Value Ref Range Glucose 211 (H) 65 - 199 mg/dL Blood Urea Nitrogen 62 (H) 10 - 20 mg/dL Creatinine 9.47 (H) 0.80 - 1.50 mg/dL Sodium 134 (L) 135 - 145 mMol/L Potassium 5.1 (H) 3.5 - 5.0 mMol/L Chloride 94 (L) 98 - 107 mMol/L Carbon Dioxide 24 22 - 31 mMol/L Anion Gap 16 (H) 5 - 15 mMol/L Calcium 8.8 8.5 - 10.5 mg/dL Est Glomerular Filtration Rate - Male 6 mL/min/1.73 m?? CRP, acute inflammation Collection Time: 01/04/24 3:41 AM Result Value Ref Range C-Reactive Protein 33.9 (H) <=4.9 mg/L Sedimentation rate Collection Time: 01/04/24 3:41 AM Result Value Ref Range Sedimentation Rate Automated 109 (H) 2 - 37 mm/hr Vancomycin Level, Random Collection Time: 01/04/24 3:41 AM Result Value Ref Range Vancomycin, Random 6.6 mg/L XR Foot Min 3 views Right (Generic) Collection Time: 01/04/24 3:55 AM Result Value Ref Range WORKSTATION ID [id number] MRI Foot wwo Contrast Right Collection Time: 01/04/24 5:40 AM Result Value Ref Range WORKSTATION ID [id number] POC, GLUCOSE Collection Time: 01/04/24 6:10 AM Result Value Ref Range Glucometer, POC 197 65 - 199 mg/dL Assessment and Recommendations: 63yo man with ESRD on HD. 1) ESRD - Pt reports that he is anticipating surgery today. No acute indications for HD today, so will plan to run him tomorrow. 2) Anemia - Hgb is at goal. 3) Bone and mineral - Calcium is at goal. Continue sevelamer. 4) Electrolytes - Potassium is in range. Cynthia Gerber MD Nephrology Pager: [phone] * Plan of Care - Delfina Millard RN - 01/04/2024 8:27 AM EDT Page Sent Successfully Page Confirmation To Pager number: [phone] From Submitter: Delfina Millard Urgency Level: FYI Callback Number: [id number] The following Message was sent: [FYI] - Callback:[id number] ED 34: Eliane Rudolph: Pt going to OR & NPO, give semglee? - Delfina Millard The following status was returned from the gravity prospecting observer: Page for [phone] successfully sent to [phone] having status of Available. * Consult Note - Toi Dobson TERRELL, DO - 01/04/2024 2:04 AM EDT Orthopaedic Surgery Consult Note Consult Received: 120AM Called Returned: 125AM Patient Seen: 145AM Attending: Dr. Bergman Sindi Rudolph is a 63 y.o. male who presents to see us in consultation today at the request of Larisa George MD. Chief Complaint: Right 5th toe ulcer, Right plantar foot ulcer History of Present Illness: Sindi Rudolph is a 63 y.o. male with a history of poorly controlled type 2 diabetes mellitus complicated by proliferative diabetic retinopathy and peripheral neuropathy, end-stage renal disease on dialysis, morbid obesity, and essential hypertension who presents with a worsening right fifth toe ulcer for the last week. Patient states that he has a long history of wound healing problems in the right foot. He has been followed by podiatry in the outpatient setting regarding a right plantar foot ulcer that has been managed with wound care. Most recently (roughly 1 to 2 weeks ago), his visiting nurse noticed increased discoloration of the left fifth toe. Over the subsequent week, the color of the toe has progressedfrom an initial dark blue to now black with a necrotic look to it. The patient states that there has been no gross purulence surrounding the area of necrosis. He is relatively low demand at baseline but ambulates without assistive devices. He gets dialysis on a Tuesday schedule. Of note, in our emergency department he is hemodynamically stable and afebrile. No labs have been collected at the time of consultation. He admits to baseline peripheral neuropathy, but denies any new numbness or tingling. He denies any recent fevers or chills. 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 Postop H40.051 Eye pain H57.10 Pseudophakia of both eyes Z96.1 PCO (posterior capsular opacification) H26.499 Class 2 severe obesity due to excess calories with serious comorbidity and body mass index (BMI) of39.0 to 39.9 in adult E66.01, Z68.39 Pre-transplant evaluation for ESRD (end stage renal disease) Z01.818 Closed fracture of right proximal humerus S42.201A Closed nondisplaced fracture of shaft of right clavicle S42.024A Right scapula fracture S42.101A Fall W19.XXXA ESRD on dialysis N18.6, Z99.2 Past Surgical History: Past Surgical History: Procedure Laterality Date CATARACT EXTRACTION, EXTRACAPSULAR, W/ LENS INSERTION 11/29/12 OS - DMM CATARACT REMOVAL 07/18/12 OD Swendris INTRAVITREAL INJECTION Left 10/12/2019 Eylea OS for DME per NNB INTRAVITREAL INJECTION Left 11/09/2019 Eylea OS for DME per NNB INTRAVITREAL INJECTION Left 12/07/2019 Eylea OS for DME per NNB INTRAVITREAL INJECTION Left 01/04/2020 Eylea OS for DME per NNB INTRAVITREAL INJECTION Left 02/15/2020 Eylea OS for DME per NNB INTRAVITREAL INJECTION Left 03/21/2020 Eylea OS for DME per NNB IR DIALYSIS ACCESS - AV FISTULA EVALUATIONS 06/17/2020 IR Dialysis Access - AV Fistula Evaluations 06/17/2020 Kimani Larson MD [facility] IR DIALYSIS ACCESS - AV FISTULA EVALUATIONS 11/04/2020 IR Dialysis Access - AV Fistula Evaluations 11/04/2020 Kimani Larson MD [facility] IR DIALYSIS ACCESS - AV FISTULA EVALUATIONS 01/25/2022 IR Dialysis Access - AV Fistula Evaluations 01/25/2022 Roderick Castillo MD [facility] PERIPHERAL IRIDOTOMY 04/06/2012 OD Swendris PRO EXTRACAPSULAR CATARACT RMVL INSERTION IO LENS PROSTH CPLX WO ECP 07/18/2012 PRO EXTRACAPSULAR CATARACT RMVL INSERTION IO LENS PROSTH W/O ECP 11/29/2012 CATARACT EXTRACTION, EXTRACAPSULAR, W/ LENS INSERTION performed by Erasmo George MD at [facility] PRO REPAIR COMPLEX RETINA DETACH VITRECTOMY & MEMB PEEL 04/03/2012, 04/03/12 REPAIR COMPLEX RETINAL DETACHMENT, W/ VITRECTOMY, MEMBRANE PEELING performed by Matteo Diane MD at [facility] MAIN OR PRO REPAIR COMPLEX RETINA DETACH VITRECTOMY & MEMB PEEL 07/31/2012 REPAIR COMPLEX RETINAL DETACHMENT, W/ VITRECTOMY, MEMBRANE PEELING performed by Matteo Diane MD at [facility] MAIN OR PRO REPAIR COMPLEX RETINA DETACH VITRECTOMY & MEMB PEEL 01/08/2013 REPAIR COMPLEX RETINAL DETACHMENT, W/ VITRECTOMY, MEMBRANE PEELING performed by Matteo Diane MD at [facility] MAIN OR PRO TX EXTENSIVE RETINOPATHY, PHOTOCOAGULATION 07/06/2011 OS CBC PRO TX EXTENSIVE RETINOPATHY, PHOTOCOAGULATION 07/27/2011 OS CBC PRO TX EXTENSIVE RETINOPATHY, PHOTOCOAGULATION 09/21/2011 OS CBC PRO TX EXTENSIVE RETINOPATHY, PHOTOCOAGULATION 12/20/2011 OS MANN PRO TX EXTENSIVE RETINOPATHY, PHOTOCOAGULATION 01/04/2012 OS MANN VITRECTOMY, W/ MEMBRANE STRIPPING 04/03/2012 OD, CBC YAG CAPSULOTOMY 11/15/2013 OS - Dr George Allergies Allergen Reactions Mirtazapine Other reaction(s): Other (see comments) Agitation, Nightmares. No current facility-administered medications on file prior to encounter. Current Outpatient Medications on File Prior to Encounter Medication Sig Dispense Refill amLODIPine (Norvasc) 10 mg tablet Take 1 tablet by mouth daily. 30 tablet 11 Trulicity 0.75 mg/0.5 mL Pen Injector OneTouch Verio Flex [place] [facility] [place]SE THREE TIMES A DAY NovoLOG Flexpen U-100 Insulin Insulin Pen Inject 6 Units subcutaneously 3 times daily (with meals).ICD 10 Code: E11.65 (Patient taking differently: Inject 12-16 Units subcutaneously 3 times daily (with meals). ICD 10 Code: E11.65) 15 mL 5 Basaglar KwikPen U-100 Insulin 100 unit/mL (3 mL) pen Inject 20 Units subcutaneously daily. ICD 10 Code: E11.65 (Patient taking differently: Inject 50 Units subcutaneously daily. ICD 10 Code: E11.65)15 mL 5 insulin needles, disposable, 31 gauge x 3/16 Needle Inject 1 each subcutaneously 4 times daily. ICD 10 Code: E11.65 150 each 5 epoetin babs-epbx (Retacrit) 10,000 unit/mL Solution Inject 1 mL subcutaneously once as needed in Dialysis. 1 mL melatonin 3 mg Tablet Take 2 tablets by mouth nightly. sevelamer carbonate (Renvela) 800 mg Tablet Take 1 tablet by mouth 3 times daily (with meals). (Patient taking differently: Take 1,600 mg by mouth 3 times daily (with meals).) aspirin 325 mg Tablet Take 1 tablet by mouth daily. 90 tablet 3 blood sugar diagnostic strips Strip Use to check blood sugar 3 times daily 200 each 11 losartan (COZAAR) 50 mg Tablet Take 50 mg by mouth daily. bumetanide (BUMEX) 1 mg Tablet Take 2 mg by mouth 2 times daily. B Complex-Vitamin C-Folic Acid (NEPHROCAP) 1 mg Capsule Take 1 capsule by mouth daily. gabapentin (NEURONTIN) 300 mg capsule Take 300 mg by mouth 3 times daily. sertraline (ZOLOFT) 25 mg tablet Take 50 mg by mouth daily. Family History: Negative for bleeding/clotting disorders or anesthetic complications. Review of Systems: As per HPI, otherwise negative Objective: Temp: [36.4 ??C (97.6 ??F)] Heart Rate: [75-86] Resp: [14-17] BP: (136-161)/(69-75) SpO2: [98 %-99 %] Heart Rate from SpO2: -- Gen: Resting comfortably in NAD, AOx3, answering questions appropriately. HEENT: NC, AT. CV: Regular rate. No murmurs, rubs, or gallops. Pulm: Normal respiratory effort on room air. Skin: Intact Psych: Normal mood and pleasant affect. Right Lower Extremity Exam: Chronic ulcer overlying the distal phalanx of the fifth digit. Healing area of callus with associated ulcer on the plantar surface between the second and third ray. Mild cellulitis on the dorsum of the foot. Minimal tenderness to palpation surrounding area of ulceration. No TTP in knee or hip. Painless range of motion of Hip / knee / ankle. Sensation diminished beyond mid calf, with 1+ out of 2 sensation to light touch in Saphenous/Sural/LFC/Femoral/MP/LP/T/DP/SP distributions. Motor intact hip flexion/extension, knee flexion/extension, ankle flexion/extension, EHL/FHL/TA. Brisk capillary refill distally. Palpable DP and PT pulses. Labs: Last 3 wbc, hgb, hct plt No results for input(s): WBC, HGB, HCT, PLATELET in the [id number] hours. Imaging: Xray (01/04/24): Right foot: Pending MRI (01/04/24): Right foot: Pending Assessment/Plan: 63 y.o. male who presents with a right fifth toe ulcer with an area of overlying necrotic ulceration. At the time of consultation, the patient has no labs including ESR CRP. No formal imaging has been performed. On exam, he has a necrotic ulceration overlying the distal phalanx of the fifth toe on the right. He also has a plantar ulcer that has been treated with wound care and lesa ears to be healing well without evidence of gross purulence. At this time, recommend completing hisinitial workup with complete labs including CBC, ESR, and CRP. Additionally recommend obtaining an MRI of the right foot (with and without contrast) to assess for underlying osteomyelitis. Additionally recommend obtaining ABIs given long history of uncontrolled diabetes to assess for healing capacity if surgical intervention is to be warranted. Upon completion of the MRI/JOSÉ MIGUEL studies, please page [phone] for review. - Activity: WBAT RLE in hard soled shoe - DVT prophylaxis: per primary - Antibiotics: per ID - Diet: Regular diet - Medications: Per primary - Imaging / studies needed: MRI right foot, ABIs - Follow-up: Pending course Toi Dobson IV, DO Orthopaedic Surgery, 7400 Associated attestation - Thania Wesley MD - 01/05/2024 1:41 PM EDT I have seen the patient and reviewed the attached history/physical and all imaging and I agree withthe details as written. The assessment and plan were formulated in discussion with me and I agree with them as documented. Plan for 5th ray amputation, which was discussed with the patient at length.He demonstrated good understanding and does wish to proceed. Emerald Wesley MD Department of Orthopaedics 01/05/2024 * ED Triage - Mehnaz Franklin RN - 01/04/2024 12:53 AM EDT Transfer from OSH for concern of gangrene of the right small toe. Full sensation, denies numbness and tingling. Pt alert and oriented, VSS, NAD, respirations even and unlabored. See transfer note HPI (Adult) Stated Reason for Visit: OSH transfer for gangrnous small right toe History Obtained From: patient, EMS Duration (Weeks): 1 documented in this encounter Plan of Treatment Scheduled Orders Name Type Priority Associated Diagnoses Orde r Schedule CBC (with Diff) Lab Routine Acute hematogenous osteomyelitis of right foot Once a week for 6 Occurrences starting 01/09/2024 until 03/10/2024, 1 completed Comprehensive metabolic panel Non-fasting Lab Routine Acute hematogenous osteomyelitis of right foot Once a week for 6 Occurrences starting 01/09/2024 until 03/10/2024, 1 completed CRP, acute inflammation Lab Routine Acute hematogenous osteomyelitis of right foot Once a week for 6 Occurrences starting 01/09/2024 until 03/10/2024, 1 completed Scheduled Referrals Name Type Priority Associated Diagnoses Orde r Schedule OPAT: Order / Recommendation for Post Discharge IV Antibiotic Management Outpatient Referral Routine Acute hematogenous osteomyelitis of right foot Ordered: 01/09/2024 Referral to Orthopaedics Outpatient Referral Urgent Acute hematogenous osteomyelitis of right foot Ordered: 01/09/2024 Referral to Home Health Outpatient Referral Routine Acute hematogenous osteomyelitis of right foot Ordered: 01/10/2024 documented as of this encounter Procedures Procedure Name Priority Date/Time Associated Diagnosis Comments POC, GLUCOSE Routine 01/09/2024 11:34 AM EDT [...] POC, GLUCOSE Routine 01/07/2024 7:48 AM EDT CBC (WITH DIFF) Routine 01/07/2024 5:11 AM EDT PHOSPHORUS Add-On 01/07/2024 5:11 AM EDT BASIC METABOLIC PANEL Routine 01/07/2024 5:11 AM EDT POC, GLUCOSE Routine 01/06/2024 10:47 PM EDT POC, GLUCOSE Routine 01/06/2024 4:35 PM EDT POC, GLUCOSE Routine 01/06/2024 11:38 AM EDT U ALBUMIN/CRE RATIO STAT 01/06/2024 1 1:22 AM EDT POC, GLUCOSE Routine 01/06/2024 7:41 AM EDT VANCOMYCIN LEVEL, RANDOM Timed 01/06/2024 5:11 AM EDT CBC (WITH DIFF) Routine 01/06/2024 5:11 AM EDT BASIC METABOLIC PANEL Routine 01/06/2024 5:11 AM EDT POC, GLUCOSE Routine 01/05/2024 9:14 PM EDT POC, GLUCOSE Routine 01/05/2024 3:59 PM EDT POC, GLUCOSE Routine 01/05/2024 11:43 AM EDT VANCOMYCIN LEVEL, RANDOM Timed 01/05/2024 8:18 AM EDT CBC (WITH DIFF) Routine 01/05/2024 8:18 AM EDT BASIC METABOLIC PANEL Routine 01/05/2024 8:18 AM EDT POC, GLUCOSE Routine 01/04/2024 8:58 PM EDT XR FOOT MIN 3 VIEWS RIGHT Routine 01/04/2024 7:42 PM EDT POC, GLUCOSE Routine 01/04/2024 5:49 PM EDT POC, GLUCOSE Routine 01/04/2024 4:57 PM EDT ANAEROBIC CULTURE STAT 01/04/2024 3:5 1 PM EDT BONE CULTURE, AEROBIC & ANAEROBIC STAT 01/04/2024 3:51 PM EDT BONE CULTURE STAT 01/04/2024 3:51 PM EDT MODIFIER WOUND VAC 01/04/2024 3: 26 PM EDT Osteomyelitis R 5th toe Amputation Metatarsal+Toe, Single ([id number]) 01/04/2024 3:26 PM EDT Osteomyelitis R 5th toe AMPUTATION, TRANSMETATARSAL TOE, ONE TOE Routine 01/04/2024 2:56 PM EDT POC, GLUCOSE Routine 01/04/2024 11:26 AM EDT POC, GLUCOSE Routine 01/04/2024 6:10 AM EDT MRI FOOT WWO CONTRAST RIGHT STAT 01/04/2024 5:40 AM EDT XR FOOT MIN 3 VIEWS RIGHT STAT 01/04/2024 3:55 AM EDT VANCOMYCIN LEVEL, RANDOM STAT Add-On 01/04/2024 3:41 AM EDT CRP, ACUTE INFLAMMATION STAT 01/04/20 3:41 AM EDT SEDIMENTATION RATE STAT Add-On 01/04/2024 3: 41 AM EDT CBC (WITH DIFF) STAT 01/04/2024 3:41 AM EDT BASIC METABOLIC PANEL STAT 01/04/2024 3:41 AM EDT JOSÉ MIGUEL, LEGS, MULTIPLE LEVELS STAT 01/04/2024 3:19 AM EDT Gangrene of toe of right foot FILM LIBRARY STORAGE ONLY DX FOOT STAT 01/03/2024 10:10 PM EDT documented in this encounter Results * (ABNORMAL) CRP, acute inflammation (01/25/2024 12:00 AM EDT) CRP - External 10.0(H) [facility]ILITY Comment:Spectra Blood VENOUS BLOOD SPECIMEN / Unknown 01/25/2024 Faby Ferrell MD CHEMISTRY ORDERABLES EXTERNAL FACILITY * (ABNORMAL) Comprehensive metabolic panel Non-fasting (01/25/2024 12:00 AM EDT) Blood Urea Nitrogen - External 52(H) EXTERNAL FACILITY Calcium - External 8.2(L) EXTERNAL FACILITY Blood VENOUS BLOOD SPECIMEN / Unknown 01/25/2024 Faby Ferrell MD CHEMISTRY ORDERABLES EXTERNAL FACILITY * (ABNORMAL) CBC (with Diff) (01/25/2024 12:00 [...] 01/25/2024 Faby Ferrell MD HEMATOLOGY ORDERABLE S EXTERNAL FACILITY * POC, GLUCOSE (01/09/2024 11:34 AM EDT) Glucometer, POC 155 65 - 199 mg/dL 01/09/2024 11:34 AM EDT [facility] Comment:Supplemental ranges: <140 mg/dL before meals <180 mg/dL all other times of the day. Blood CAPILLARY BLOOD / Unknown 01/09/2024 11:34 AM EDT 01/09/2024 11:34 AM EDT Haja Garner MD POINT OF CARE TEST O RDERABLES [facility] [place] [address] * POC, GLUCOSE (01/09/2024 7:37 AM EDT) Glucometer, POC 96 65 - 199 mg/dL 01/09/2024 7:37 AM EDT [facility] Comment:Supplemental ranges: <140 mg/dL before meals <180 mg/dL all other times of the day. Blood CAPILLARY BLOOD / Unknown 01/09/2024 7:37 AM EDT 01/09/2024 7:37 AM EDT Haja Garner MD POINT OF CARE TEST O ANTONETTE [facility] [place] [address] * POC, GLUCOSE (01/08/2024 8:59 PM EDT) Glucometer, POC 145 65 - 199 mg/dL 01/08/2024 8:59 PM EDT [facility] Comment:Supplemental ranges: <140 mg/dL before meals <180 mg/dL all other times of the day. Blood CAPILLARY BLOOD / Unknown 01/08/2024 8:59 PM EDT 01/08/2024 9:00 PM EDT Haja Garner MD POINT OF CARE TEST O ANTONETTE Performing Organization Address City/[facility]/ZIP Co de Phone Number [facility] [place] [address] * POC, GLUCOSE (01/08/2024 4:52 PM EDT) Glucometer, POC 139 65 - 199 mg/dL 01/08/2024 4:52 PM EDT [facility] Comment:Supplemental ranges: <140 mg/dL before meals <180 mg/dL all other times of the day. Blood CAPILLARY BLOOD / Unknown 01/08/2024 4:52 PM EDT 01/08/2024 4:52 PM EDT Haja Garner MD POINT OF CARE TEST O ANTONETTE [facility] [place] [address] * POC, GLUCOSE (01/08/2024 12:10 PM EDT) Glucometer, POC 197 65 - 199 mg/dL 01/08/2024 12:10 PM EDT [facility] Comment:Supplemental ranges: <140 mg/dL before meals <180 mg/dL all other times of the day. Blood CAPILLARY BLOOD / Unknown 01/08/2024 12:10 PM EDT 01/08/2024 12:10 PM EDT Haja Garner MD POINT OF CARE TEST O ANTONETTE Performing Organization Address [facility] Co de Phone Number [facility] [place] [address] * (ABNORMAL) POC, GLUCOSE (01/08/2024 11:42 AM EDT) Glucometer, POC 209(H) 65 - 199 mg/dL 01/08/2024 11:42 AM EDT [facility] Comment:Supplemental ranges: <140 mg/dL before meals <180 mg/dL all other times of the day. Blood CAPILLARY BLOOD / Unknown 01/08/2024 11:42 AM EDT 01/08/2024 11:42 AM EDT Haja Garner MD POINT OF CARE TEST O ANTONETTE Performing Organization Address [facility] Co de Phone Number [facility] [place] [address] * POC, GLUCOSE (01/08/2024 7:39 AM EDT) Glucometer, POC 132 65 - 199 mg/dL 01/08/2024 7:39 AM EDT [facility] Comment:Supplemental ranges: <140 mg/dL before meals <180 mg/dL all other times of the day. Blood CAPILLARY BLOOD / Unknown 01/08/2024 7:39 AM EDT 01/08/2024 7:40 AM EDT Haja Garner MD POINT OF CARE TEST O ANTONETTE [facility] [place] [address] * POC, GLUCOSE (01/07/2024 7:58 PM EDT) Glucometer, POC 184 65 - 199 mg/dL 01/07/2024 7:59 PM EDT [facility] Comment:Supplemental ranges: <140 mg/dL before meals <180 mg/dL all other times of the day. Blood CAPILLARY BLOOD / Unknown 01/07/2024 7:58 PM EDT 01/07/2024 7:59 PM EDT Haja Garner MD POINT OF CARE TEST O ANTONETTE [facility] [place] [address] * POC, GLUCOSE (01/07/2024 5:19 PM EDT) Glucometer, POC 136 65 - 199 mg/dL 01/07/2024 5:19 PM EDT [facility] Comment:Supplemental ranges: <140 mg/dL before meals <180 mg/dL all other times of the day. Blood CAPILLARY BLOOD / Unknown 01/07/2024 5:19 PM EDT 01/07/2024 5:19 PM EDT Haja Garner MD POINT OF CARE TEST O ANTONETTE [facility] [place] [address] * POC, GLUCOSE (01/07/2024 11:54 AM EDT) Glucometer, POC 85 65 - 199 mg/dL 01/07/2024 11:54 AM EDT [facility] Comment:Supplemental ranges: <140 mg/dL before meals <180 mg/dL all other times of the day. Blood CAPILLARY BLOOD / Unknown 01/07/2024 11:54 AM EDT 01/07/2024 11:54 AM EDT Haja Garner MD POINT OF CARE TEST O RDERABLES Performing Organization Address City/[facility]/ZIP Co de Phone Number [facility] [place] [address] * POC, GLUCOSE (01/07/2024 7:48 AM EDT) Glucometer, POC 128 65 - 199 mg/dL 01/07/2024 7:48 AM EDT [facility] Comment:Supplemental ranges: <140 mg/dL before meals <180 mg/dL all other times of the day. Blood CAPILLARY BLOOD / Unknown 01/07/2024 7:48 AM EDT 01/07/2024 7:49 AM EDT Haja Garner MD POINT OF CARE TEST O RDERABLES Performing Organization Address [facility] Co de Phone Number [facility] [place] [address] * (ABNORMAL) Phosphorus (01/07/2024 5:11 AM EDT) Phosphorus 7.1(H) 2.5 - 4.5 mg/dL 01/07/2024 9:02 AM EDT [facility] Blood VENOUS BLOOD SPECIMEN / Unknown IP Care Team Draw / Unknown 01/07/2024 5:11 AM EDT 01/07/2024 5:36 AM EDT Nettie Davis APRN CHEMISTRY ORDER ROBBIE Performing Organization Address City/[facility]/ZIP Co de Phone Number [facility] [place] [address] * (ABNORMAL) Basic Metabolic Panel (01/07/2024 5:11 AM EDT) Glucose 138 65 - 199 mg/dL 01/07/2024 6:22 AM EDT [facility] Comment:Glucose Concentratio n >=200 mg/dL plus symptoms is consistent with Diabetes Mellitus. Blood Urea Nitrogen 49(H) 10 - 20 mg/dL 01/07/2024 6:22 AM [facility] Creatinine 9.75(H) 0.80 - 1.50 mg/dL 01/07/2024 6:22 AM [facility] Sodium 138 135 - 145 mMol/L 01/07/2024 6:22 AM [facility] Potassium 4.6 3.5 - 5.0 mMol/L 01/07/2024 6:22 AM [facility] Chloride 97(L) 98 - 107 mMol/L 01/07/2024 6:22 AM [facility] Carbon Dioxide 25 22 - 31 mMol/L 01/07/2024 6:22 AM [facility] Anion Gap 16(H) 5 - 15 mMol/L 01/07/2024 6:22 AM [facility] Calcium 8.7 8.5 - 10.5 mg/dL 01/07/2024 6:22 AM [facility] Est Glomerular Filtration Rate - Male 5 mL/min/1. 73 m?? 01/07/2024 6:22 AM [facility] Comment: This patient's estimated [...] EDT Ramírez Gasca DO CHEMISTRY ORDERABL ES [facility] [place] [address] * (ABNORMAL) CBC (with Diff) (01/07/2024 5:11 AM EDT) White Blood Cell 5.88 4.00 - 9.50 x10(3)/mc L [facility]/07[facility]24 [facility] Red Blood Cell 3.39(L) 4.58 - 5.54 x10(6)/mc L 01/07/2024 5:47 AM [facility] Hemoglobin 10.5(L) 13.7 - 16.5 g/dL 01/07/2024 5:47 AM [facility] Hematocrit 33.7(L) 40.5 - 48.5 % 01/07/2024 5:47 AM [facility] Mean Cell Volume 99.4(H) 82.9 - 93.1 fL 01/07/2024 5:47 AM [facility] Mean Cell Hemoglobin 31.0 27.5 - 32.1 pg 01/07/2024 5:47 AM [facility] Mean Cell Hemoglobin Concentration 31.2(L) 32.0 - 35.7 g/dL 01/07/2024 5:47 AM [facility] Platelet 154 145 - 357 x10(3)/mc L 01/07/2024 5:47 AM [facility] Mean Platelet Volume 9.7 7.6 - 12.9 fL 01/07/2024 5:47 AM [facility] RDW Standard Deviation 60.9(H) 36.0 - 45.0 fL 01/07/2024 5:47 AM [facility] RDW coefficient of variation 16.3(H) 11.4 - 13.8 % 01/07/2024 5:47 AM [facility] NRBC% auto 0.0 % 01/07/2024 5:47 AM [facility] NRBC Absolute 0.00 0.00 - 0.00 x10(3)/mc L 01/07/2024 5:47 AM EDT [facility] Neutrophil % 70.5 % 01/07/2024 5:47 AM EDT [facility] Neutrophil Absolute (ANC) - Automated 4.15 1.70 - 6.10 x10(3)/mc L 01/07/2024 5:47 AM EDT [facility] Lymph % 10.9 % 01/07/2024 5:47 AM EDT [facility] Lymph Absolute 0.64(L) 0.90 - 3.20 x10(3)/mc L 01/07/2024 5:47 AM EDT [facility] Monocyte % 8.8 % 01/07/2024 5:47 AM EDT [facility] Monocyte Absolute 0.52 0.30 - 0.90 x10(3)/mc L 01/07/2024 5:47 AM EDT [facility] Eos % 8.0 % 01/07/2024 5:47 AM EDT [facility] Eos Absolute 0.47(H) 0.00 - 0.40 x10(3)/mc L 01/07/2024 5:47 AM EDT [facility] Basophil % 0.9 % 01/07/2024 5:47 AM EDT [facility] Baso Absolute 0.05 0.00 - 0.10 x10(3)/mc L 01/07/2024 5:47 AM EDT [facility] Immature Gran % 0.9 % 5:47 AM EDT [facility] Immature Gran Absolute 0.05(H) 0.00 - 0.04 x10(3)/mc L 01/07/2024 5:47 [facility] Blood VENOUS BLOOD SPECIMEN / Unknown IP Care Team Draw / Unknown 01/07/2024 5:11 AM EDT 01/07/2024 5:36 AM EDT Ramírez Gasca DO HEMATOLOGY ORDERAB LES Performing Organization Address City/[facility] Co de Phone Number [facility] [place] [address] * POC, GLUCOSE (01/06/2024 10:47 PM EDT) Glucometer, POC 138 65 - 199 mg/dL 01/06/2024 10:47 PM EDT [facility] Comment:Supplemental ranges: <140 mg/dL before meals <180 mg/dL all other times of the day. Blood CAPILLARY BLOOD / Unknown 01/06/2024 10:47 PM EDT 01/06/2024 10:47 PM EDT Jesús Muñiz MD POINT OF CARE TEST ORDERABLES Performing Organization Address [facility] Co de Phone Number [facility] [place] [address] * POC, GLUCOSE (01/06/2024 4:35 PM EDT) Glucometer, POC 174 65 - 199 mg/dL 01/06/2024 4:38 PM EDT [facility] Comment:Supplemental ranges: <140 mg/dL before meals <180 mg/dL all other times of the day. Blood CAPILLARY BLOOD / Unknown 01/06/2024 4:35 PM EDT 01/06/2024 4:38 PM EDT Jesús Muñiz MD POINT OF CARE TEST ORDERABLES Performing Organization Address City/[facility]/ZIP Co de Phone Number [facility] [place] [address] * POC, GLUCOSE (01/06/2024 11:38 AM EDT) Glucometer, POC 145 65 - 199 mg/dL 01/06/2024 11:38 AM EDT [facility] Comment:Supplemental ranges: <140 mg/dL before meals <180 mg/dL all other times of the day. Blood CAPILLARY BLOOD / Unknown 01/06/2024 11:38 AM EDT 01/06/2024 11:38 AM EDT Jesús Muñiz MD POINT OF CARE TEST ORDERABLES [facility] [place] [address] * (ABNORMAL) U Albumin/Cre Ratio (01/06/2024 11:22 AM EDT) Albumin, Urine 325.3 mg/L 01/06/2024 1:47 PM EDT [facility] Creatinine, Urine 125 mg/dL 024 1:47 PM EDT [facility] Albumin / Creatinine Ratio, Urine 260(H) 0 - 29 mcg/mg Cr 01/06/2024 1:47 PM EDT [facility] Comment: Reference Ranges: ?? <30 mcg/mg: [...] Gasca DO URINE ORDERABLES Performing Organization Address [facility]/ZIP Co de Phone Number [facility] [place] [address] * POC, GLUCOSE (01/06/2024 7:41 AM EDT) Glucometer, POC 104 65 - 199 mg/dL 01/06/2024 7:41 AM EDT [facility] Comment:Supplemental ranges: <140 mg/dL before meals <180 mg/dL all other times of the day. Blood CAPILLARY BLOOD / Unknown 01/06/2024 7:41 AM EDT 01/06/2024 7:41 AM EDT Carmelina Giraldo MD POINT OF CARE PRO T ORDERABLES Performing Organization Address City/[facility]/ZIP Co de Phone Number [facility] [place] [address] * Vancomycin Level, Random (01/06/2024 5:11 AM EDT) Pathologist [facility] Vancomycin, Random 19.9 mg/L 2023 6:02 AM EDT [facility] Comment:This level is for de termination of the patient's vancomycin fkoo-jstmx-[id number]-curve (AUC) value. Contact the inpatient pharmacy for interpretation. Blood VENOUS BLOOD SPECIMEN / Unknown IP Care Team Draw / Unknown 01/06/2024 5:11 AM EDT 01/06/2024 5:31 AM EDT Camrelina Giraldo MD CHEMISTRY ORDERAB LES Performing Organization Address City/[facility]/ZIP Co de Phone Number [facility] [place] [address] * (ABNORMAL) Basic Metabolic Panel (01/06/2024 5:11 AM EDT) Glucose 118 65 - 199 mg/dL 01/06/2024 6:20 AM EDT [facility] Comment:Glucose Concentratio n >=200 mg/dL plus symptoms is consistent with Diabetes Mellitus. Blood Urea Nitrogen 39(H) 10 - 20 mg/dL 01/06/2024 6:20 AM EDT [facility] Creatinine 8.15(H) 0.80 - 1.50 mg/dL 01/06/2024 6:20 AM EDT [facility] Sodium 137 135 - 145 mMol/L 01/06/2024 6[facility] Potassium 4.6 3.5 - 5.0 mMol/L 01/06/2024 6:20 AM [facility] Chloride 98 98 - 107 mMol/L 01/06/2024 6:[facility] Carbon Dioxide 26 22 - 31 mMol/L 01/06/2024 6:20 AM [facility] Anion Gap 13 5 - 15 mMol/L 01/06/2024 6:20 AM [facility] Calcium 8.4(L) 8.5 - 10.5 mg/dL 01/06/2024 6:20 AM [facility] Est Glomerular Filtration Rate - Male 7 mL/min/1. 73 m?? 01/06/2024 6:20 AM [facility] Comment: This patient's estimated [...] 5:11 AM EDT 01/06/2024 5:31 AM EDT Ramírez Gasca DO CHEMISTRY ORDERABL ES [facility] [place] [address] * (ABNORMAL) CBC (with Diff) (01/06/2024 5:11 AM EDT) White Blood Cell 5.83 4.00 - 9.50 x10(3)/mc L 01/06/2024 5:46 AM [facility] Red Blood Cell 3.25(L) 4.58 - 5.54 x10(6)/mc L 01/06/2024 5:46 AM [facility] Hemoglobin 10.0(L) 13.7 - 16.5 g/dL 01/06/2024 5:46 AM [facility] Hematocrit 31.9(L) 40.5 - 48.5 % 01/06/2024 5:46 AM [facility] Mean Cell Volume 98.2(H) 82.9 - 93.1 fL 01/06/2024 5:46 AM [facility] Mean Cell Hemoglobin 30.8 27.5 - 32.1 pg 01/06/2024 5:46 AM [facility] Mean Cell Hemoglobin Concentration 31.3(L) 32.0 - 35.7 g/dL 01/06/2024 5:46 AM [facility] Platelet 133(L) 145 - 357 x10(3)/mc L 01/06/2024 5:46 AM [facility] Mean Platelet Volume 9.7 7.6 - 12.9 fL 01/06/2024 5:46 AM [facility] RDW Standard Deviation 59.7(H) 36.0 - 45.0 fL 01/06/2024 5:46 AM [facility] RDW coefficient of variation 16.5(H) 11.4 - 13.8 % 01/06/2024 5:46 AM [facility] NRBC% auto 0.0 % 01/06/2024 5:46 AM [facility] NRBC Absolute 0.00 0.00 - 0.00 x10(3)/mc L 01/06/2024 5:46 AM [facility] Neutrophil % 69.4 % 01/06/2024 5:46 AM [facility] Neutrophil Absolute (ANC) - Automated 4.04 1.70 - 6.10 x10(3)/mc L 01/06/2024 5:46 AM EDT [facility] Lymph % 12.5 % 01/06/2024 5:46 AM EDT [facility] Lymph Absolute 0.73(L) 0.90 - 3.20 x10(3)/mc L 01/06/2024 5:46 AM EDT [facility] Monocyte % 9.9 % 01/06/2024 5:46 AM EDT [facility] Monocyte Absolute 0.58 0.30 - 0.90 x10(3)/mc L 01/06/2024 5:46 AM EDT [facility] Eos % 7.2 % 01/06/2024 5:46 AM EDT [facility] Eos Absolute 0.42(H) 0.00 - 0.40 x10(3)/mc L 01/06/2024 5:46 AM EDT [facility] Basophil % 0.7 % 01/06/2024 5:46 AM EDT [facility] Baso Absolute 0.04 0.00 - 0.10 x10(3)/mc L 01/06/2024 5:46 AM EDT [facility] Immature Gran % 0.3 % 5:46 AM EDT [facility] Immature Gran Absolute 0.02 0.00 - 0.04 x10(3)/mc L 01/06/2024 5:46 AM EDT [facility] Blood VENOUS BLOOD SPECIMEN / Unknown IP Care Team Draw / Unknown 01/06/2024 5:11 AM EDT 01/06/2024 5:31 AM EDT Ramírez Gasca DO HEMATOLOGY ORDERAB LES [facility] [place] [address] * POC, GLUCOSE (01/05/2024 9:14 PM EDT) Glucometer, POC 155 65 - 199 mg/dL 01/05/2024 9:14 PM EDT [facility] Comment:Supplemental ranges: <140 mg/dL before meals <180 mg/dL all other times of the day. Blood CAPILLARY BLOOD / Unknown 01/05/2024 9:14 PM EDT 01/05/2024 9:14 PM EDT Carmelina Giraldo MD POINT OF CARE PRO T ORDERABLES Performing Organization Address City/[facility]/ZIP Co de Phone Number [facility] [place] [address] * POC, GLUCOSE (01/05/2024 3:59 PM EDT) Glucometer, POC 166 65 - 199 mg/dL 01/05/2024 3:59 PM EDT [facility] Comment:Supplemental ranges: <140 mg/dL before meals <180 mg/dL all other times of the day. Blood CAPILLARY BLOOD / Unknown 01/05/2024 3:59 PM EDT 01/05/2024 3:59 PM EDT Carmelina Giraldo MD POINT OF CARE PRO T ORDERABLES Performing Organization Address City/[facility]/ZIP Co de Phone Number [facility] [place] [address] * POC, GLUCOSE (01/05/2024 11:43 AM EDT) Glucometer, POC 127 65 - 199 mg/dL 01/05/2024 11:44 AM EDT [facility] Comment:Supplemental ranges: <140 mg/dL before meals <180 mg/dL all other times of the day. Blood CAPILLARY BLOOD / Unknown 01/05/2024 11:43 AM EDT 01/05/2024 11:44 AM EDT Carmelina Giraldo MD POINT OF CARE PRO T ORDERABLES [facility] [place] [address] * Vancomycin Level, Random (01/05/2024 8:18 AM EDT) Vancomycin, Random 26.6 mg/L 2023 9:17 AM EDT [facility] Comment:This level is for de termination of the patient's vancomycin kjgs-hytks-nzj-curve (AUC) value. Contact the inpatient pharmacy for interpretation. Blood VENOUS BLOOD SPECIMEN / Unknown IP Care Team Draw / Unknown 01/05/2024 8:18 AM EDT 01/05/2024 8:22 AM EDT Jennie Curiel MD CHEMISTRY ORDERABLES [facility] [place] [address] * (ABNORMAL) Basic Metabolic Panel (01/05/2024 8:18 AM EDT) Glucose 185 65 - 199 mg/dL 01/05/2024 9:35 AM EDT [facility] Comment:Glucose Concentratio n >=200 mg/dL plus symptoms is consistent with Diabetes Mellitus. Blood Urea Nitrogen 74(H) 10 - 20 mg/dL 01/05/2024 9:35 AM EDT [facility] Creatinine 11.45(HHH ) 0.80 - 1.50 mg/dL 01/05/2024 9:35 AM EDT [facility] Sodium 135 135 - 145 mMol/L 01/05/2024 9:35 AM EDT [facility] Potassium 6.3(HHH) 3.5 - 5.0 mMol/L 01/05/2024 9:35 AM EDT [facility] Chloride 95(L) 98 - 107 mMol/L 01/05/2024 9:35 AM EDT [facility] Carbon Dioxide 23 22 - 31 mMol/L 01/05/2024 9:35 AM EDT [facility] Anion Gap 17(H) 5 - 15 mMol/L 01/05/2024 9:35 AM EDT [facility] Calcium 8.3(L) 8.5 - 10.5 mg/dL 01/05/2024 9:35 AM EDT [facility] Est Glomerular Filtration Rate - Male 5 mL/min/1. 73 m?? 01/05/2024 9:35 AM EDT [facility] Comment: This patient's estimated GFR was [...] Unknown IP Care Team Draw / Unknown 01/05/2024 8:18 AM EDT 01/05/2024 8:22 AM EDT Ramírez Gasca DO CHEMISTRY ORDERABL ES [facility] [place] [address] * (ABNORMAL) CBC (with Diff) (01/05/2024 8:18 AM EDT) White Blood Cell 6.56 4.00 - 9.50 x10(3)/mc L 01/05/2024 8:35 AM EDT [facility] Red Blood Cell 3.16(L) 4.58 - 5.54 x10(6)/mc L 01/05/2024 8:35 AM EDT [facility] Hemoglobin 9.8(L) 13.7 - 16.5 g/dL 01/05/2024 8:35 AM EDT [facility] Hematocrit 31.1(L) 40.5 - 48.5 % 01/05/2024 8:35 AM [facility] Mean Cell Volume 98.4(H) 82.9 - 93.1 fL 01/05/2024 8:35 AM [facility] Mean Cell Hemoglobin 31.0 27.5 - 32.1 pg 01/05/2024 8:35 AM [facility] Mean Cell Hemoglobin Concentration 31.5(L) 32.0 - 35.7 g/dL 01/05/2024 8:35 AM [facility] Platelet 151 145 - 357 x10(3)/mc L 01/05/2024 8:35 AM [facility] Mean Platelet Volume 9.8 7.6 - 12.9 fL 01/05/2024 8:35 AM [facility] RDW Standard Deviation 60.6(H) 36.0 - 45.0 fL 01/05/2024 8:35 AM [facility] RDW coefficient of variation 16.7(H) 11.4 - 13.8 % 01/05/2024 8:35 AM [facility] NRBC% auto 0.0 % 01/05/2024 8:35 AM [facility] NRBC Absolute 0.00 0.00 - 0.00 x10(3)/mc L 01/05/2024 8:35 AM [facility] Neutrophil % 72.3 % 01/05/2024 8:35 AM [facility] Neutrophil Absolute (ANC) - Automated 4.75 1.70 - 6.10 x10(3)/mc L 01/05/2024 8:35 AM [facility] Lymph % 10.4 % 01/05/2024 8:35 AM [facility] Lymph Absolute 0.68(L) 0.90 - 3.20 x10(3)/mc L 01/05/2024 8:35 AM [facility] Monocyte % 7.9 % 01/05/2024 8:35 AM EDT [facility] Monocyte Absolute 0.52 0.30 - 0.90 x10(3)/mc L 01/05/2024 8:35 AM EDT [facility] Eos % 8.1 % 01/05/2024 8:35 AM EDT [facility] Eos Absolute 0.53(H) 0.00 - 0.40 x10(3)/mc L 01/05/2024 8:35 AM EDT [facility] Basophil % 0.8 % 01/05/2024 8:35 AM EDT [facility] Baso Absolute 0.05 0.00 - 0.10 x10(3)/mc L 01/05/2024 8:35 AM EDT [facility] Immature Gran % 0.5 % 8:35 AM EDT [facility] Immature Gran Absolute 0.03 0.00 - 0.04 x10(3)/mc L 01/05/2024 8:35 AM EDT [facility] Blood VENOUS BLOOD SPECIMEN / Unknown IP Care Team Draw / Unknown 01/05/2024 8:18 AM EDT 01/05/2024 8:22 AM EDT Ramírez Gasca DO HEMATOLOGY ORDERAB LES [facility] [place] [address] * (ABNORMAL) POC, GLUCOSE (01/04/2024 8:58 PM EDT) [facility] Signature Glucometer, POC 209(H) 65 - 199 mg/dL 01/04/2024 9:01 PM EDT [facility] Comment:Supplemental ranges: <140 mg/dL before meals <180 mg/dL all other times of the day. Blood CAPILLARY BLOOD / Unknown 01/04/2024 8:58 PM EDT 01/04/2024 9:01 PM EDT Jennie Curiel MD POINT OF CARE TEST O RDERABLES [facility] [place] [address] * XR Foot Min 3 views Right (Generic) (01/04/2024 7:42 PM EDT) WORKSTATION ID [id number] RAD Anatomical Region Laterality Modality Foot Right [...] have questions please contact the health care companion that requested your imaging first. ? Electronically signed by: Aaron Charles MD, [facility] ??([phone]), at 01/05/2024 2:34 AM Narrative 01/05/2024 2:34 [...] who have questions please contactthe health care companion that requested your imaging first. Electronically signed by: Aaron Charles MD, [facility]([phone]), at 01/05/2024 2:34 AM Jennie Curiel MD IMG DX ORDERABLES * POC, GLUCOSE (01/04/2024 5:49 PM EDT) Glucometer, POC 155 65 - 199 mg/dL 01/04/2024 5:50 PM EDT [facility] Comment:Supplemental ranges: <140 mg/dL before meals <180 mg/dL all other times of the day. Blood CAPILLARY BLOOD / Unknown 01/04/2024 5:49 PM EDT 01/04/2024 5:50 PM EDT Jennie Curiel MD POINT OF CARE TEST O RDERABLES [facility] [place] [address] * POC, GLUCOSE (01/04/2024 4:57 PM EDT) Glucometer, POC 137 65 - 199 mg/dL 01/04/2024 4:57 PM EDT [facility] Comment:Supplemental ranges: <140 mg/dL before meals <180 mg/dL all other times of the day. Blood CAPILLARY BLOOD / Unknown 01/04/2024 4:57 PM EDT 01/04/2024 4:57 PM EDT Jennie Curiel MD POINT OF CARE TEST O RDERABLES [facility] [place] [address] * Anaerobic Culture (01/04/2024 3:51 PM EDT) Anaerobic Culture No anaerobic organisms isolated 01/08/2024 1:53 PM EDT [facility] Bone STRUCTURE OF TOE OF RIGHT FOOT / Unknown 01/04/2024 3:51 PM EDT Comment:Diabetes Thania Wesley MD MICROBIOLOGY - GENER AL ORDERABLES Performing Organization Address City/[facility]/ZIP Co de Phone Number [facility] [place] [address] * (ABNORMAL) Bone Culture (01/04/2024 3:51 PM EDT) Bone Culture Rare Klebsiella oxytoca(A) VITEK 2 METHOD 02/07/2024 10:09 AM EDT [facility] Bone Culture Rare Acinetobacter species(A) VITEK 2 METHOD 02/07/2024 10:09 AM EDT [facility] Bone Culture Rare Staphylococcus aureus(A) VITEK 2 METHOD 02/07/2024 10:09 AM EDT [facility] Gram Stain Few neutrophils 10:09 AM EDT [facility] Gram Stain No microorganisms seen 02/07/2024 10:09 AM EDT [facility] Bone STRUCTURE OF TOE OF RIGHT [...] Wesley MD MICROBIOLOGY - GENER AL ORDERABLES Performing Organization Address [facility]/ZIP Co de Phone Number [facility] [place] [address] * POC, GLUCOSE (01/04/2024 11:26 AM EDT) Glucometer, POC 181 65 - 199 mg/dL 01/04/2024 11:32 AM EDT [facility] [facility] Comment:Supplemental ranges: <140 mg/dL before meals <180 mg/dL all other times of the day. Blood CAPILLARY BLOOD / Unknown 01/04/2024 11:26 AM EDT 01/04/2024 11:32 AM EDT Jennie Curiel MD POINT OF CARE TEST O RDERABLES Performing Organization Address [facility] Co de Phone Number [facility] [place] [address] * POC, GLUCOSE (01/04/2024 6:10 AM EDT) Glucometer, POC 197 65 - 199 mg/dL 01/04/2024 6:10 AM EDT [facility] Comment:Supplemental ranges: <140 mg/dL before meals <180 mg/dL all other times of the day. Blood CAPILLARY BLOOD / Unknown 01/04/2024 6:10 AM EDT 01/04/2024 6:10 AM EDT Ramírez Gasca DO POINT OF CARE TEST ORDERABLES Performing Organization Address [facility] Co de Phone Number [facility] [place] [address] * MRI Foot wwo Contrast Right (01/04/2024 5:40 AM EDT) ITC WORKSTATION ID [id number] RAD Anatomical Region Laterality Modality Foot Right [...] have questions please contact the health care companion that requested your imaging first. ? Electronically signed by: Caden Kemp MD, [facility] ([phone]), at 01/04/2024 8:31 AM Narrative 01/04/2024 8:31 AM EDT EXAMINATION: MRI [...] 1st metatarsal head, 0.9 cm wide (series [id number] image 72). ??The ulceration does not contact [...] underneath 1st metatarsal head, 0.9 cmwide (series [id number] image 72). The ulceration does not contact [...] who have questions please contactthe health care companion that requested your imaging first. Electronically signed by: Caden Kemp MD, [facility]([phone]), at 01/04/2024 8:31 AM Ramírez Gasca DO IMG MRI ORDERABLES * XR Foot Min 3 views Right (Generic) (01/04/2024 3:55 AM EDT) WORKSTATION ID [id number] RAD Anatomical Region Laterality Modality Foot Right Digital Radiogra phy Impressions 01/04/2024 4:33 AM EDT FINDINGS/IMPRESSION: * ??Mild osteolytic appearance of the tuft of the fifth digit distal phalanx, could be sequela of osteomyelitis in appropriate clinical setting (as clinically warranted, could consider MRI evaluation barring contraindication). * ??Moderately advanced osteoarthropathy involving the midfoot, predominantly medially. Arteriovascular calcifications. Please note, this examination was ordered, performed, and interpreted in a STAT/emergency setting. Thank you for letting us participate in the care of this patient. ??If you are a health care provider and have any questions regarding this report, please contact the number below. ??For patients who have questions please contact the health care companion that requested your imaging first. ? Electronically signed by: Huang Hernandez MD, [facility] ([phone]), at 01/04/2024 4:33 AM Narrative 01/04/2024 4:33 AM EDT EXAMINATION: XR FOOT MIN 3 VIEWS RIGHT (GENERIC) CLINICAL HISTORY: s/f osteo of 5th ray (History as entered by ordering provider in the order requisition) TECHNIQUE: 3 views RIGHT foot (static nonweightbearing/nonstressed) COMPARISON: RIGHT foot radiographs 01/03/[address] 12/28/2023 Procedure Note Huang Hernandez MD - 01/04/2024 EXAMINATION: XR FOOT MIN 3 VIEWS RIGHT (GENERIC) CLINICAL HISTORY: s/f osteo of 5th ray (History as entered by ordering provider in the order requisition) TECHNIQUE: 3 views RIGHT foot (static nonweightbearing/nonstressed) COMPARISON: RIGHT foot radiographs 01/03/[address] 12/28/2023 IMPRESSION FINDINGS/IMPRESSION: * Mild osteolytic appearance of the tuft of the fifth digit distalphalanx, could be sequela of osteomyelitis in appropriate clinical setting (asclinically warranted, could consider MRI evaluation barring contraindication). * Moderately advanced osteoarthropathy involving the midfoot,predominantly medially. Arteriovascular calcifications. Please note, this examination was ordered, performed, and interpreted jovan STAT/emergency setting. Thank you for letting us participate in the care of this patient. If youare a health care provider and have any questions regarding this report,please contact the number below. For patients who have questions please contactthe health care companion that requested your imaging first. Electronically signed by: Huang Hernandez MD, [facility]([phone]), at 01/04/2024 4:33 AM Larisa George MD IMG DX ORDERABLES * Vancomycin Level, Random (01/04/2024 3:41 AM EDT) Vancomycin, Random 6.6 mg/L 2023 5:21 AM EDT [facility] Comment:This level is for de termination of the patient's vancomycin idfs-[id number]-ukh-curve (AUC) value. Contact the inpatient pharmacy for interpretation. Blood VENOUS BLOOD SPECIMEN / Unknown IP Care Team Draw / Unknown 01/04/2024 3:41 AM EDT 01/04/2024 3:46 AM EDT Ramírez Gasca DO CHEMISTRY ORDERABL ES Performing Organization Address City/[facility]/ZIP Co de Phone Number [facility] [place] [address] * (ABNORMAL) Sedimentation rate (01/04/2024 3:41 AM EDT) Sedimentation Rate Automated 109(H) 2 - 37 mm/hr 01/04/2024 5:51 AM EDT [facility] Blood VENOUS BLOOD SPECIMEN / Unknown IP Care Team Draw / Unknown 01/04/2024 3:41 AM EDT 01/04/2024 3:46 AM EDT Larisa George MD HEMATOLOGY ORDERABLE S [facility] [place] [address] * (ABNORMAL) CRP, acute inflammation (01/04/2024 3:41 AM EDT) C-Reactive Protein 33.9(H) <=4.9 mg/L 01/04/2024 4:41 AM EDT [facility] Blood VENOUS BLOOD SPECIMEN / Unknown IP Care Team Draw / Unknown 01/04/2024 3:41 AM EDT 01/04/2024 3:46 AM EDT Larisa George MD CHEMISTRY ORDERABLES [facility] [place] [address] * (ABNORMAL) Basic Metabolic Panel (01/04/2024 3:41 AM EDT) Pathologist [facility] Glucose 211(H) 65 - 199 mg/dL 01/04/2024 4:26 AM EDT [facility] Comment:Glucose Concentratio n >=200 mg/dL plus symptoms is consistent with Diabetes Mellitus. Blood Urea Nitrogen 62(H) 10 - 20 mg/dL 01/04/2024 4:26 AM [facility] Creatinine 9.47(H) 0.80 - 1.50 mg/dL 01/04/2024 4:26 AM [facility] Sodium 134(L) 135 - 145 mMol/L 01/04/2024 4:26 AM [facility] Potassium 5.1(H) 3.5 - 5.0 mMol/L 01/04/2024 4:[facility] Chloride 94(L) 98 - 107 mMol/L 01/04/2024 4:26 AM [facility] Carbon Dioxide 24 22 - 31 mMol/L 01/04/2024 4:26 AM [facility] Anion Gap 16(H) 5 - 15 mMol/L 01/04/2024 4:26 [facility] Calcium 8.8 8.5 - 10.5 mg/dL 01/04/2024 4:26 AM EDT [facility] Est Glomerular Filtration Rate - Male 6 mL/min/1. 73 m?? 01/04/2024 4:26 AM EDT [facility] Comment: This patient's estimated GFR was [...] 01/04/2024 3:46 AM EDT Larisa George MD CHEMISTRY ORDERABLES [facility] [place] [id number] * (ABNORMAL) CBC (with Diff) (01/04/2024 3:41 AM EDT) White Blood Cell 6.37 4.00 - 9.50 x10(3)/mc L 01/04/2024 4:04 [facility] Red Blood Cell 3.43(L) 4.58 - 5.54 x10(6)/mc L 01/04/2024 4:04 AM EDT [facility] Hemoglobin 10.5(L) 13.7 - 16.5 g/dL 01/04/2024 4:04 AM [facility] Hematocrit 33.2(L) 40.5 - 48.5 % 01/04/2024 4:04 AM [facility] Mean Cell Volume 96.8(H) 82.9 - 93.1 fL 01/04/2024 4:04 AM [facility] Mean Cell Hemoglobin 30.6 27.5 - 32.1 pg 01/04/2024 4:04 AM [facility] Mean Cell Hemoglobin Concentration 31.6(L) 32.0 - 35.7 g/dL 01/04/2024 4:04 AM [facility] Platelet 172 145 - 357 x10(3)/mc L 01/04/2024 4:04 AM [facility] Mean Platelet Volume 10.0 7.6 - 12.9 fL 01/04/2024 4:04 AM [facility] RDW Standard Deviation 59.5(H) 36.0 - 45.0 fL 01/04/2024 4:04 AM [facility] RDW coefficient of variation 16.7(H) 11.4 - 13.8 % 01/04/2024 4:04 AM [facility] NRBC% auto 0.0 % 01/04/2024 4:04 AM [facility] NRBC Absolute 0.00 0.00 - 0.00 x10(3)/mc L 01/04/2024 4:04 AM [facility] Neutrophil % 60.7 % 01/04/2024 4:04 AM [facility] Neutrophil Absolute (ANC) - Automated 3.87 1.70 - 6.10 x10(3)/mc L 01/04/2024 4:04 AM [facility] Lymph % 19.2 % 01/04/2024 4:04 AM [facility] Lymph Absolute 1.22 0.90 - 3.20 x10(3)/mc L 01/04/2024 4:04 AM [facility] Monocyte % 7.4 % 01/04/2024 4:04 AM [facility] Monocyte Absolute 0.47 0.30 - 0.90 x10(3)/mc L 01/04/2024 4:04 AM [facility] Eos % 10.8 % 01/04/2024 4:04 AM EDT [facility] Eos Absolute 0.69(H) 0.00 - 0.40 x10(3)/mc L 01/04/2024 4:04 AM EDT [facility] Basophil % 1.3 % 01/04/2024 4:04 AM EDT [facility] Baso Absolute 0.08 0.00 - 0.10 x10(3)/mc L 01/04/2024 4:04 AM EDT [facility] Immature Gran % 0.6 % 4:04 AM EDT [facility] Immature Gran Absolute 0.04 0.00 - 0.04 x10(3)/mc L 01/04/2024 4:04 AM EDT [facility] Blood VENOUS BLOOD SPECIMEN / Unknown IP Care Team Draw / Unknown 01/04/2024 3:41 AM EDT 01/04/2024 3:46 AM EDT Larisa George MD HEMATOLOGY ORDERABLE S [facility] [place] [id number] * JOSÉ MIGUEL, legs, multiple levels (01/04/2024 3:19 AM EDT) VB Text Report Department: Vascular Surgery Lab Patient: [id number] (SINDI RUDOLPH) CPT: 58211 Referring Physician: LARISA GEORGE ?? Phone: Indications: [...] ERABLES documented in this encounter Visit Diagnoses Diagnosis Osteomyelitis 5th toe R, s/p partial 5th ray resection [place] 01/04/24- Primary Unspecified osteomyelitis, site unspecified Gangrene of toe of right foot Acute hematogenous osteomyelitis of right foot documented in this encounter Admitting Diagnoses Diagnosis Osteomyelitis Unspecified osteomyelitis, site unspecified documented in this encounter Administered Medications Inactive Administered Medications - up to 3 most recent administrations Medication Order MAR Action Action Date Dose Rate Site amLODIPine (Norvasc) tablet 10 mg 10 mg, Oral, DAILY, First dose on Tue01/04/24 at 0900, Until Discontinued, Routine Given 01/09/2024 8:13 AM EDT 10 mg Given 01/08/2024 8:44 AM EDT 10 mg Given 01/07/2024 8:07 AM EDT 10 mg aspirin tablet 325 mg 325 mg, Oral, DAILY, First dose on Tue01/04/24 at 0900, Until Discontinued, Routine Given 01/09/2024 8:13 AM EDT 325 mg Given 01/08/2024 8:44 AM EDT 325 mg Given 01/07/2024 8:08 AM EDT 325 mg bisacodyL (Dulcolax) suppository 10 mg 10 mg, Rectal, DAILY PRN, Starting on Tue01/04/24 at 0618, Until Tue01/09/24 at 1956, Constipation, Give if no BM within last 24 hr and rectal fullness is reported or assessed. Give concomitantly with any scheduled bowel medications ordered. , Routine bisacodyl EC (Dulcolax) tablet 10 mg 10 mg, Oral, 2 TIMES DAILY PRN, Starting on Tue01/04/24 at 0618, Until Tue01/09/24 at 1956, Constipation, Give if no BM after 24 hr after prior interventions. BM expected in 6-8 hours. If BM desired sooner, use next ordered agent. Give concomitantly with any scheduled bowel medications ordered., Routine bumetanide (Bumex) tablet 2 mg 2 mg, Oral, 2 TIMES DAILY, First dose on Tue01/04/24 at 0700, Until Discontinued, Routine Given 01/09/2024 3:30 PM EDT 2 mg Given 01/09/2024 6:38 AM EDT 2 mg Given 01/08/2024 3:44 PM EDT 2 mg dextrose 10% infusion 250 mL, at 1,000 mL/hr, Intravenous, EVERY 15 MIN PRN, Starting on Tue01/04/24 at 0441, Until Tue01/09/24 at 1956, For BG 50-70 mg/dL: Oral treatment preferred: If able to drink, give 120 mL juice or regular (not diet) soda OR if NPO, give 15 gram glucose 40% oral gel massaged into buccal mucosa OR if unconscious or uncooperative, give 25 gram (250 mL) dextrose 10% IV over 15 minutes per protocol OR, if no IV access, 1 mg glucagon IM. For BG less than 50 mg/dL: Oral treatment preferred: If able to drink, give 240 mL juice or regular (not diet) soda OR if NPO, give 30 gram glucose 40% oral gel massaged in buccal mucosa OR if unconscious or uncooperative, give 25 gram (250 mL) dextrose 10% IV over 15 minutes per protocol OR, if no IV access, 1 mg glucagon IM. Recheck BG in 15 minutes. May repeat juice/soda, gel, dextrose or glucagon once per episode. Notify provider if hypoglycemia does not resolve after two treatments. Providers should consider the following: administering longer-acting treatments for the duration of active insulin or hypoglycemia agent for persistent hypoglycemia and re-evaluating active insulin orders before administering the next dose. gabapentin (Neurontin) capsule 300 mg 300 mg, Oral, 3 TIMES DAILY, First dose on Tue01/04/24 at 0900, Until Discontinued, Routine Given 01/09/2024 3:30 PM EDT 300 mg Given 01/09/2024 8:13 AM EDT 300 mg Given 01/08/2024 9:00 PM EDT 300 mg gadoterate meglumine (Dotarem) (0.5 mMol/mL) injection solution 0-100 mL 0-100 mL, Intravenous, ONCE PRN, 1 dose, Starting on Tue01/04/24 at 0525, Until Tue01/04/24 at 0522, Per Protocol, Radiology Contrast, Routine Given 01/04/2024 5:22 AM EDT 21 mLs glucagon (Glucagen) (1 mg/mL) injection solution 1 mg 1 mg, Intramuscular, EVERY 15 MIN PRN, Starting on Tue01/04/24 at 0441, Until Tue01/09/24 at 1957, Low blood sugar, For BG 50-70 mg/dL: Oral treatment preferred: If able to drink, give 120 mL juice or regular (not diet) soda OR if NPO, give 15 gram glucose 40% oral gel massaged into buccal mucosa OR if unconscious or uncooperative, give 25 gram (250 mL) dextrose 10% IV over 15 minutes per protocol OR, if no IV access, 1 mg glucagon IM. For BG less than 50 mg/dL: Oral treatment preferred: If able to drink, give 240 mL juice or regular (not diet) soda OR if NPO, give 30 gram glucose 40% oral gel massaged in buccal mucosa OR if unconscious or uncooperative, give 25 gram (250 mL) dextrose 10% IV over 15 minutes per protocol OR, if no IV access, 1 mg glucagon IM. Recheck BG in 15 minutes. May repeat juice/soda, gel, dextrose or glucagon once per episode. Notify provider if hypoglycemia does not resolve after two treatments. Providers should consider the following: administering longer-acting treatments for the duration of active insulin or hypoglycemia agent for persistent hypoglycemia and re-evaluating active insulin orders before administering the next dose. , Routine glucose (Glutose) 40% oral geL 15-30 g of glucose, Buccal, EVERY 15 MIN PRN, Starting on Tue01/04/24 at 0441, Until Tue01/09/24 at 1957, Low blood sugar, For BG 50-70 mg/dL: Oral treatment preferred: If able to drink, give 120 mL juice or regular (not diet) soda OR if NPO, give 15 gram glucose 40% oral gel massaged into buccal mucosa OR if unconscious or uncooperative, give 25 gram (250 mL) dextrose 10% IV over 15 minutes per protocol OR, if no IV access, 1 mg glucagon IM. For BG less than 50 mg/dL: Oral treatment preferred: If able to drink, give 240 mL juice or regular (not diet) soda OR if NPO, give 30 gram glucose 40% oral gel massaged in buccal mucosa OR if unconscious or uncooperative, give 25 gram (250 mL) dextrose 10% IV over 15 minutes per protocol OR, if no IV access, 1 mg glucagon IM. Recheck BG in 15 minutes. May repeat juice/soda, gel, dextrose or glucagon once per episode. Notify provider if hypoglycemia does not resolve after two treatments. Providers should consider the following: administering longer-acting treatments for the duration of active insulin or hypoglycemia agent for persistent hypoglycemia and re-evaluating active insulin orders before administering the next dose. 1 tube of Glutose-15 contains 15 grams of glucose (net weight of tube = 37.5 grams.), Routine heparin (porcine) (1,000 units/mL) injection 8,000 Units 8,000 Units, Intravenous, ONCE IN DIALYSIS, 1 dose, On Barbara 01/05/24 at 0645, For use in Dialysis only., Dialysis (Intra-Procedure), Routine Given 01/05/2024 8:06 AM EDT 8,000 Un its heparin (porcine) (1,000 units/mL) injection 8,000 Units 8,000 Units, Intravenous, ONCE IN DIALYSIS, 1 dose, On 01/07/24 at 0645, For use in Dialysis only., Dialysis (Intra-Procedure), Routine Given 01/07/2024 8:00 AM EDT 8,000 Un its heparin (porcine) (1,000 units/mL) injection 8,000 Units 8,000 Units, Intravenous, ONCE IN DIALYSIS, 1 dose, On 01/09/24 at 1115, For use in Dialysis only., Dialysis (Intra-Procedure), Routine Given 01/09/2024 11:15 AM EDT 8,000 U nits heparin (porcine) (5,000 units/1 mL) subcutaneous injection 5,000 Units 5,000 Units, Subcutaneous, EVERY 8 HOURS SCHEDULED, First dose on Tue01/04/24 at 0635, Until Discontinued, Routine Given 01/09/2024 3:30 PM EDT 5,000 Units Given 01/09/2024 6:38 AM EDT 5,000 Units Given 01/08/2024 9:00 PM EDT 5,000 Units insulin glargine-ygfn (Semglee) (100 unit/mL) subcutaneous injection vial 30 Units 30 Units, Subcutaneous, DAILY, First dose on Tue01/04/24 at 0900, Until Discontinued, Routine Given 01/09/2024 8:13 AM EDT 30 Units Given 01/08/2024 8:45 AM EDT 30 Units Given 01/07/2024 8:08 AM EDT 30 Units insulin lispro (HumaLOG;Admelog) (100 unit/mL) subcutaneous injection vial 0-8 Units 0-8 Units, Subcutaneous, 3 TIMES DAILY WITH MEALS, First dose on Tue01/04/24 at 0800, Until Discontinued, ME[employer] Give 1 unit for every 10 grams carbohydrate. Hold if not eating or if BG less than 70 mg/dL. , Routine Given 01/09/2024 8:13 AM EDT 5 Units Given 01/08/2024 5:49 PM EDT 6 Units Given 01/08/2024 1:21 PM EDT 3 Units insulin lispro (HumaLOG;Admelog) (100 unit/mL) subcutaneous injection vial 1-4 Units 1-4 Units, Subcutaneous, 3 TIMES DAILY BEFORE MEALS, First dose on Tue01/05/24 at 0730, Until Discontinued, CORRECTION BOLUS [1-4 Units] Sensitive Sliding Scale (BG in mg/dL): Correction factor 40 (1 unit of insulin is expected to drop the glucose 40 mg/dL) ?? BG 160 - 200 Give 1 unit BG 201 - 240 Give 2 units BG 241 - 280 Give 3 units and recheck BG in 2 hours. BG greater than 280, give 4 units and recheck BG in 2 hours. - If recheck BG is LESS than 280, give no insulin and resume schedule - If recheck BG is GREATER than or EQUAL to 280, give 4 units and repeat BG in 2 hours & call for new insulin orders. DO NOT hold if NPO, unless specifically told to do so. ?? Per Inpatient Subcutaneous Insulin Policy, recheck a BG of greater than 240 mg/dL in 2 hours., Routine Given 01/08/2024 12:18 PM EDT 1 Units Given 01/06/2024 5:12 PM EDT 1 Units Given 01/05/2024 6:04 PM EDT 1 Units insulin lispro (HumaLOG;Admelog) (100 unit/mL) subcutaneous injection vial 1-6 Units 1-6 Units, Subcutaneous, EVERY 4 HOURS SCHEDULED, First dose on Tue01/04/24 at 0500, Until Discontinued, CORRECTION BOLUS [1-6 Units] Moderate Sliding Scale (BG in mg/dL): Correction factor 20 (1 unit of insulin [...] - If recheck BG is GREATER than or EQUAL to 240, give 6 units and repeat BG in 2 hours (no more than 3 times) & call for new insulin orders. DO NOT hold if NPO, unless specifically directed to do so by written order. ?? Per Inpatient Subcutaneous Insulin Policy, recheck a BG of greater than 240 mg/dL in 2 hours., Routine Given 01/04/2024 4:57 PM EDT 1 Units Right Arm Given 01/04/2024 12:01 PM EDT 3 Units Given 01/04/2024 6:15 AM EDT 3 Units lactulose (Chronulac) (0.67 gram/mL) oral liquid 20 g 20 g, Oral, DAILY PRN, Starting on Tue01/04/24 at 06, Until Tue01/09/24 at 1956, Constipation, Give if no BM 24 hr after prior interventions or if BM is desired within 2 hr. Give concomitantly with any scheduled bowel medications ordered, Routine lactulose (Chronulac) (0.67 gram/mL) oral liquid 20 g 20 g, Oral, DAILY PRN, Starting on Tue01/04/24 at 0618, Until Tue01/09/24 at 1956, Constipation, Give an additional (2nd) dose of lactulose 2 hr after 1st dose if still no BM. Disregard if 1st dose of lactulose not ordered. Give concomitantly with any scheduled bowel medications ordered. , Routine magnesium citrate oral liquid 296 mL 296 mL, Oral, ONCE PRN, 1 dose, Starting on Tue01/04/24 at 06, Until Tue01/09/24 at 1956, Constipation, Give if no BM 2 hr after previous interventions. If 2 hr after mag citrate there is still no BM, see order for tap water enema, if placed. Give concomitantly with any scheduled bowel medications ordered., Routine ondansetron (pf) (Zofran) (2 mg/mL) injection 4 mg 4 mg, Intravenous, EVERY 8 HOURS PRN, Starting on Tue01/04/24 at 06, Until Tue01/09/24 at 1956, Nausea, 4 mg,Oral,EVERY 8 HOURS PRN, Nausea,Vomiting If multiple antiemetics are ordered, use ondansetron first. May repeat times one in 30 minutes if ineffective. ondansetron ODT (Zofran-ODT) disintegrating tablet 4 mg 4 mg, Oral, EVERY 8 HOURS PRN, Starting on Tue01/04/24 at 0618, Until Tue01/09/24 at 1956, Nausea, If multiple antiemetics are ordered, use ondansetron first. PO Preferred. If patient unable to take PO, may give IV if ordered. May repeat times one in 45 minutes if ineffective. , Routine piperacillin-tazobactam (Zosyn) 3.375 g vial attach to sodium chloride 0.9% 50 mL Mini-Bag Plus 3.375 g, Intravenous, EVERY 12 HOURS, First dose on Tue01/04/24 at 0500, Until Discontinued, Administer over 4 Hours, Warning Vesicant/Irritant Medication Per lead caster labeling, do not administer or Y-site with lactated ringers., Indication for (Active or Suspected): Bone/Joint New Bag 01/09/2024 4:44 AM EDT 3.375 g 12.5 mL/ hr New Bag 01/08/2024 5:51 PM EDT 3.375 g 12.5 mL/hr New Bag 01/08/2024 4:43 AM EDT 3.375 g 12.5 mL/hr polyethylene glycoL (Miralax) packet 17 g 17 g, Oral, DAILY PRN, Starting on Tue01/04/24 at 0618, Until Tue01/09/24 at 1957, Constipation, Give if no BM within last 24 hr. Give concomitantly with any scheduled bowel medications ordered. , Routine sertraline (Zoloft) tablet 50 mg 50 mg, Oral, DAILY, First dose on Tue01/04/24 at 0900, Until Discontinued, Routine Given 01/09/2024 8:13 AM EDT 50 mg Given 01/08/2024 8:44 AM EDT 50 mg Given 01/07/2024 8:07 AM EDT 50 mg sevelamer carbonate (Renvela) tablet 1,600 mg 1,600 mg, Oral, 3 TIMES DAILY WITH MEALS, First dose on Tue01/04/24 at 0800, Until Discontinued, DO NOT CRUSH OR OPEN, Routine Given 01/09/2024 8:13 AM EDT 1,600 mg Given 01/08/2024 5:49 PM EDT 1,600 mg Given 01/08/2024 12:17 PM EDT 1,600 mg sodium chloride 0.9 % (flush) (BD PosiFlush Normal Saline 0.9) flush 5 mL 5 mL, Intravenous, 2 TIMES DAILY, First dose on Tue01/04/24 at 0900, Until Discontinued, Routine Given 01/09/2024 8:15 AM EDT 5 mLs Given 01/08/2024 9:00 PM EDT 5 mLs Given 01/08/2024 8:44 AM EDT 5 mLs sodium chloride 0.9% infusion 100 mL, Intravenous, EVERY 15 MIN PRN, Starting on Tue01/09/24 at 1053, Until Tue01/09/24 at 1957, If administration of NS boluses will result in positive fluid balance at end of treatment, contact ., Dialysis (Intra-Procedure) vancomycin (Vancocin) 1.75 gram in sodium chloride 0.9% 500 mL infusion 1,750 mg, Intravenous, at 250 mL/hr, ONCE, 1 dose, On Tue01/04/24 at 0640, Maximum infusion rate is 1 gram/hour. If flushing of the face, neck, upper body, arms, and/or back occurs decrease infusion rate by 50% to reduce the severity of symptoms. This medication may have an associated drug lab level. Please see MAR for scheduled level. Warning Vesicant/Irritant Medication , STAT, Indication for (Active or Suspected): Skin/Skin Structure New Bag 01/04/2024 8:56 AM EDT 1,750 mg 250 mL/hr documented in this encounter Active and Recently Administered Medications Times are shown in EDT. Scheduled Medication Order 01/07/2024 01/08/2024 01/09/2024 amLODIPine (Norvasc) tablet 10 mg 10 mg, Oral, DAILY, First dose on Tue01/04/24 at 0900, Until Discontinued, Routine 0807 (Given - Provider: Marely Santillan RN) 0844 (Given - Provider: Marely Santillan RN) 0813 (Given - Provider: Solange Gonzalez RN) aspirin tablet 325 mg 325 mg, Oral, DAILY, First dose on Tue01/04/24 at 0900, Until Discontinued, Routine 0808 (Given - Provider: Marely Santillan RN) 0844 (Given - Provider: Marely Santillan RN) 0813 (Given - Provider: Solange Gonzalez RN) bumetanide (Bumex) tablet 2 mg 2 mg, Oral, 2 TIMES DAILY, First dose on Tue01/04/24 at 0700, Until Discontinued, Routine 0734 (Given - Provider: Rishi Smith RN)1542 (Given - Provider: Marely Santillan RN) 0610 (Given - Provider: Ladonna Cheung RN)1544 (Given - Provider: Marely Santillan RN) 0638 (Given - Provider: Ladonna Cheung RN)1530 (Given - Provider: Solange Gonzalez RN) gabapentin (Neurontin) capsule 300 mg 300 mg, Oral, 3 TIMES DAILY, First dose on Tue01/04/24 at 0900, Until Discontinued, Routine 0807 (Given - Provider: Marely Santillan RN)1542 (Given - Provider: Marely Santillan RN)2122 (Given - Provider: Ladonna Cheung RN) 0844 (Given - Provider: Marely Santillan RN)1544 (Given - Provider: Marely Santillan RN)2100 (Given - Provider: Ladonna Cheung RN) 0813 (Given - Provider: Solange Gonzalez RN)1530 (Given - Provider: Solange Gonzalez RN) heparin (porcine) (1,000 units/mL) injection 8,000 Units (COMPLETED) 8,000 Units, Intravenous, ONCE IN DIALYSIS, 1 dose, On Tue01/07/24 at 0645, For use in Dialysis only., Dialysis (Intra-Procedure), Routine 0800 (Given - Provider: Krystal Radford RN) heparin (porcine) (1,000 units/mL) injection 8,000 Units (COMPLETED) 8,000 Units, Intravenous, ONCE IN DIALYSIS, 1 dose, On Tue01/09/24 at 1115, For use in Dialysis only., Dialysis (Intra-Procedure), Routine 1115 (Given - Provider: Krystal Radford RN) heparin (porcine) (5,000 units/1 mL) subcutaneous injection 5,000 Units 5,000 Units, Subcutaneous, EVERY 8 HOURS SCHEDULED, First dose on Tue01/04/24 at 0635, Until Discontinued, Routine 0538 (Given - Provider: Rishi Smith RN)1542 (Given - Provider: Marely Santillan RN)2122 (Given - Provider: Ladonna Cheung RN) 0610 (Given - Provider: Ladonna E Brocious, RN)1321 (Given - Provider: Marely Santillan RN)2100 (Given - Provider: Ladonna Cheung, PERNELL) 0638 (Given - Provider: Ladonna Cheung RN)1530 (Given - Provider: Solange Gonzalez RN) insulin glargine-ygfn (Semglee) (100 unit/mL) subcutaneous injection vial 30 Units 30 Units, Subcutaneous, DAILY, First dose on Tue01/04/24 at 0900, Until Discontinued, Routine 0808 (Given - Provider: Marely Santillan RN) 0845 (Given - Provider: Marely Santillan RN) 0813 (Given - Provider: Solange Gonzalez RN) insulin lispro (HumaLOG;Admelog) (100 unit/mL) subcutaneous injection vial 0-8 Units 0-8 Units, Subcutaneous, 3 TIMES DAILY WITH MEALS, First dose on Tue01/04/24 at 0800, Until Discontinued, ME[employer] Give 1 unit for every 10 grams carbohydrate. Hold if not eating or if BG less than 70 mg/dL. , Routine 0810 (Given - Provider: Marely Santillan RN)1331 (Given - Provider: Marely Santillan RN - Comment: Pt received lunch late)1754 (Given - Provider: Marely Santillan RN) 0845 (Given - Provider: Marely Santillan RN)1321 (Given - Provider: Marely Santillan RN)1749 (Given - Provider: Marely Santillan RN) 0813 (Given - Provider: Solange Gonzalez RN)1200 (Not Given - Provider: Solange Gonzalez RN - Reason: Transfer to a Procedural area - Comment: did not eat lunch- at dialysis)1700 (Due) insulin lispro (HumaLOG;Admelog) (100 unit/mL) subcutaneous injection vial 1-4 Units(Linked Group 1) 1-4 Units, Subcutaneous, 3 TIMES DAILY BEFORE MEALS, First dose on Tue01/05/24 at 0730, Until Discontinued, CORRECTION BOLUS [1-4 Units] Sensitive Sliding Scale (BG in mg/dL): Correction factor 40 (1 unit of insulin is expected to drop the glucose 40 mg/dL) ?? BG 160 - 200 Give 1 unit BG 201 - 240 Give 2 units BG 241 - 280 Give 3 units and recheck BG in 2 hours. BG greater than 280, give 4 units and recheck BG in 2 hours. - If recheck BG is LESS than 280, give no insulin and resume schedule - If recheck BG is GREATER than or EQUAL to 280, give 4 units and repeat BG in 2 hours & call for new insulin orders. DO NOT hold if NPO, unless specifically told to do so. ?? Per Inpatient Subcutaneous Insulin Policy, recheck a BG of greater than 240 mg/dL in 2 hours., Routine 0730 (Not Given - Provider: Marely Santillan RN - Reason: Order parameters not met)1130 (Not Given - Provider: Marely Santillan RN - Reason: Order parameters not met)1630 (Not Given - Provider: Marely Santillan RN - Reason: Order parameters not met) 0730 (Not Given - Provider: Faye Jalloh RN - Reason: Order parameters not met)1218 (Given - Provider: Marely Santillan RN)1630 (Not Given - Provider: Marely Santillan RN - Reason: Order parameters not met) 0730 (Not Given - Provider: Solange Gonzalez RN - Reason: Order parameters not met)1130 (Not Given - Provider: Solange Gonzalez RN - Reason: Order parameters not met)1630 (Due) piperacillin-tazobactam (Zosyn) 3.375 g vial attach to sodium chloride 0.9% 50 mL Mini-Bag Plus 3.375 g, Intravenous, EVERY 12 HOURS, First dose on Tue01/04/24 at 0500, Until Discontinued, Administer over 4 Hours, Warning Vesicant/Irritant Medication Per lead caster labeling, do not administer or Y-site with lactated ringers., Indication for (Active or Suspected): Bone/Joint 0538 (New Bag - Provider: Rishi Smith RN)0845 (Paused - Provider: Marely Santillan RN)0846 (Stopped - Provider: Marely Santillan RN)1754 (New Bag - Provider: Marely Santillan RN)2154 (Stopped - Provider: Ladonna Cheung RN) 0443 (New Bag - Provider: Ladonna Cheung RN)0843 (Stopped - Provider: Marely Santillan RN)175 (New Bag - Provider: Marely Santillan RN)215 (Stopped - Provider: Ladonna Cheung RN) 0444 (New Bag - Provider: Ladonna Cheung RN)0844 (Stopped - Provider: Solange Gonzalez RN)1700 (Due) sertraline (Zoloft) tablet 50 mg 50 mg, Oral, DAILY, First dose on Tue01/04/24 at 0900, Until Discontinued, Routine 0807 (Given - Provider: Marely Santillan RN) 0844 (Given - Provider: Marely Santillan RN) 0813 (Given - Provider: Solange Gonzalez RN) sevelamer carbonate (Renvela) tablet 1,600 mg 1,600 mg, Oral, 3 TIMES DAILY WITH MEALS, First dose on Tue01/04/24 at 0800, Until Discontinued, DO NOT CRUSH OR OPEN, Routine 0807 (Given - Provider: Marely Santillan RN)1231 (Given - Provider: Marely Santillan RN)1754 (Given - Provider: Marely Santillan RN) 0844 (Given - Provider: Marely Santillan RN)1217 (Given - Provider: Marely Santillan RN)1749 (Given - Provider: Marely Santillan RN) 0813 (Given - Provider: Solange Gonzalez RN)1200 (Not Given - Provider: Solange Gonzalez RN - Reason: Transfer to a Procedural area - Comment: pt at dialysis - did not eat lunch)1700 (Due) sodium chloride 0.9 % (flush) (BD PosiFlush Normal Saline 0.9) flush 5 mL 5 mL, Intravenous, 2 TIMES DAILY, First dose on Tue01/04/24 at 0900, Until Discontinued, Routine 0811 (Given - Provider: Marely Santillan RN)212 (Given - Provider: Ladonna E Brocious, RN) 0844 (Given - Provider: Marely Santillan RN)2100 (Given - Provider: Ladonna Cheung RN) 0815 (Given - Provider: Solange Gonzalez RN) PRN Medication Order 01/07/2024 01/08/2024 01/09/2024 acetaminophen (Tylenol) tablet 650 mg 650 mg, Oral, EVERY 6 HOURS PRN, Starting on Tue01/04/24 at 0618, Until Tue01/09/24 at 1956, Pain, Fever, Administer for pain or temperature greater than or equal to 38.2 degrees Celsius. Maximum daily dose of acetaminophen from all sources not to exceed 4,000 mg. When ordered for pain, acetaminophen should be given even when other ordered pain medications are indicated., Routine bisacodyL (Dulcolax) suppository 10 mg(Linked Group 2) 10 mg, Rectal, DAILY PRN, Starting on Tue01/04/24 at 0618, Until Tue01/09/24 at 1956, Constipation, Give if no BM within last 24 hr and rectal fullness is reported or assessed. Give concomitantly with any scheduled bowel medications ordered. , Routine bisacodyl EC (Dulcolax) tablet 10 mg(Linked Group 2) 10 mg, Oral, 2 TIMES DAILY PRN, Starting on Tue01/04/24 at 0618, Until Tue01/09/24 at 1956, Constipation, Give if no BM after 24 hr after prior interventions. BM expected in 6-8 hours. If BM desired sooner, use next ordered agent. Give concomitantly with any scheduled bowel medications ordered., Routine dextrose 10% infusion(Linked Group 3) 250 mL, at 1,000 mL/hr, Intravenous, EVERY 15 MIN PRN, Starting on Tue01/04/24 at 0441, Until Tue01/09/24 at 1956, For BG 50-70 mg/dL: Oral treatment preferred: If able to drink, give 120 mL juice or regular (not diet) soda OR if NPO, give 15 gram glucose 40% oral gel massaged into buccal mucosa OR if unconscious or uncooperative, give 25 gram (250 mL) dextrose 10% IV over 15 minutes per protocol OR, if no IV access, 1 mg glucagon IM. For BG less than 50 mg/dL: Oral treatment preferred: If able to drink, give 240 mL juice or regular (not diet) soda OR if NPO, give 30 gram glucose 40% oral gel massaged in buccal mucosa OR if unconscious or uncooperative, give 25 gram (250 mL) dextrose 10% IV over 15 minutes per protocol OR, if no IV access, 1 mg glucagon IM. Recheck BG in 15 minutes. May repeat juice/soda, gel, dextrose or glucagon once per episode. Notify provider if hypoglycemia does not resolve after two treatments. Providers should consider the following: administering longer-acting treatments for the duration of active insulin or hypoglycemia agent for persistent hypoglycemia and re-evaluating active insulin orders before administering the next dose. glucagon (Glucagen) (1 mg/mL) injection solution 1 mg(Linked Group 3) 1 mg, Intramuscular, EVERY 15 MIN PRN, Starting on Tue01/04/24 at 044, Until Tue01/09/24 at 1957, Low blood sugar, For BG 50-70 mg/dL: Oral treatment preferred: If able to drink, give 120 mL juice or regular (not diet) soda OR if NPO, give 15 gram glucose 40% oral gel massaged into buccal mucosa OR if unconscious or uncooperative, give 25 gram (250 mL) dextrose 10% IV over 15 minutes per protocol OR, if no IV access, 1 mg glucagon IM. For BG less than 50 mg/dL: Oral treatment preferred: If able to drink, give 240 mL juice or regular (not diet) soda OR if NPO, give 30 gram glucose 40% oral gel massaged in buccal mucosa OR if unconscious or uncooperative, give 25 gram (250 mL) dextrose 10% IV over 15 minutes per protocol OR, if no IV access, 1 mg glucagon IM. Recheck BG in 15 minutes. May repeat juice/soda, gel, dextrose or glucagon once per episode. Notify provider if hypoglycemia does not resolve after two treatments. Providers should consider the following: administering longer-acting treatments for the duration of active insulin or hypoglycemia agent for persistent hypoglycemia and re-evaluating active insulin orders before administering the next dose. , Routine glucose (Glutose) 40% oral geL(Linked Group 3) 15-30 g of glucose, Buccal, EVERY 15 MIN PRN, Starting on Tue01/04/24 at 044, Until Tue01/09/24 at 1957, Low blood sugar, For BG 50-70 mg/dL: Oral treatment preferred: If able to drink, give 120 mL juice or regular (not diet) soda OR if NPO, give 15 gram glucose 40% oral gel massaged into buccal mucosa OR if unconscious or uncooperative, give 25 gram (250 mL) dextrose 10% IV over 15 minutes per protocol OR, if no IV access, 1 mg glucagon IM. For BG less than 50 mg/dL: Oral treatment preferred: If able to drink, give 240 mL juice or regular (not diet) soda OR if NPO, give 30 gram glucose 40% oral gel massaged in buccal mucosa OR if unconscious or uncooperative, give 25 gram (250 mL) dextrose 10% IV over 15 minutes per protocol OR, if no IV access, 1 mg glucagon IM. Recheck BG in 15 minutes. May repeat juice/soda, gel, dextrose or glucagon once per episode. Notify provider if hypoglycemia does not resolve after two treatments. Providers should consider the following: administering longer-acting treatments for the duration of active insulin or hypoglycemia agent for persistent hypoglycemia and re-evaluating active insulin orders before administering the next dose. 1 tube of Glutose-15 contains 15 grams of glucose (net weight of tube = 37.5 grams.), Routine lactulose (Chronulac) (0.67 gram/mL) oral liquid 20 g(Linked Group 2) 20 g, Oral, DAILY PRN, Starting on Tue01/04/24 at 06, Until Tue01/09/24 at 1956, Constipation, Give if no BM 24 hr after prior interventions or if BM is desired within 2 hr. Give concomitantly with any scheduled bowel medications ordered, Routine lactulose (Chronulac) (0.67 gram/mL) oral liquid 20 g(Linked Group 2) 20 g, Oral, DAILY PRN, Starting on Tue01/04/24 at 0618, Until Tue01/09/24 at 1956, Constipation, Give an additional (2nd) dose of lactulose 2 hr after 1st dose if still no BM. Disregard if 1st dose of lactulose not ordered. Give concomitantly with any scheduled bowel medications ordered. , Routine lidocaine (Xylocaine) 1% (10 mg/mL) injection 3 mg 3 mg (0.3 mL), Subcutaneous, ONCE PRN, 1 dose, Starting on Tue01/04/24 at 0618, Until Tue01/09/24 at 1956, for discomfort with PIV insertion, Routine magnesium citrate oral liquid 296 mL(Linked Group 2) 296 mL, Oral, ONCE PRN, 1 dose, Starting on Tue01/04/24 at 0618, Until Tue01/09/24 at 1956, Constipation, Give if no BM 2 hr after previous interventions. If 2 hr after mag citrate there is still no BM, see order for tap water enema, if placed. Give concomitantly with any scheduled bowel medications ordered., Routine melatonin tablet 3 mg 3 mg, Oral, NIGHTLY PRN, Starting on Tue01/04/24 at 06, Until Tue01/09/24 at 1956, Sleep, Sleep, Routine ondansetron (pf) (Zofran) (2 mg/mL) injection 4 mg(Linked Group 4) 4 mg, Intravenous, EVERY 8 HOURS PRN, Starting on Tue01/04/24 at 06, Until Tue01/09/24 at 1956, Nausea, 4 mg,Oral,EVERY 8 HOURS PRN, Nausea,Vomiting If multiple antiemetics are ordered, use ondansetron first. May repeat times one in 30 minutes if ineffective. ondansetron ODT (Zofran-ODT) disintegrating tablet 4 mg(Linked Group 4) 4 mg, Oral, EVERY 8 HOURS PRN, Starting on Tue01/04/24 at 0618, Until Tue01/09/24 at 1956, Nausea, If multiple antiemetics are ordered, use ondansetron first. PO Preferred. If patient unable to take PO, may give IV if ordered. May repeat times one in 45 minutes if ineffective. , Routine polyethylene glycoL (Miralax) packet 17 g(Linked Group 2) 17 g, Oral, DAILY PRN, Starting on Tue01/04/24 at 0618, Until Tue01/09/24 at 1956, Constipation, Give if no BM within last 24 hr. Give concomitantly with any scheduled bowel medications ordered. , Routine sodium chloride 0.9 % (flush) (BD PosiFlush Normal Saline 0.9) flush 5-20 mL 5-20 mL, Intravenous, EVERY 1 MIN PRN, Starting on Tue01/04/24 at 0618, Until Tue01/09/24 at 1956, flush, Flush pertains to all indwelling lines. Flush per protocol found in the job aid using the link provided on this medication record., Routine sodium chloride 0.9% infusion 100 mL, Intravenous, EVERY 15 MIN PRN, Starting on Tue01/09/24 at 1053, Until Tue01/09/24 at 1956, If administration of NS boluses will result in positive fluid balance at end of treatment, contact , Dialysis (Intra-Procedure) Linked Groups Order Group 1: POCT Fingerstick Glucose (CANCELED) Routine, 4 TIMES DAILY BEFORE MEALS & AT BEDTIME, First occurrence on Tue01/04/24 at 2200, Until Specified, Consider choosing FOUR TIMES A DAY BEFORE MEALS AND AT BEDTIME as frequency for: Patients who have good hypoglycemia awareness: -Patients who are eating meals during the day and sleeping at night -Patients who are otherwise stable And insulin lispro (HumaLOG;Admelog) (100 unit/mL) subcutaneous injection vial 1-4 UnitsJump to med 1-4 Units, Subcutaneous, 3 TIMES DAILY BEFORE MEALS, First dose on Tue01/05/24 at 0730, Until Discontinued, CORRECTION BOLUS [1-4 Units] Sensitive Sliding Scale (BG in mg/dL): Correction factor 40 (1 unit of insulin is expected to drop the glucose 40 mg/dL) ?? BG 160 - 200 Give 1 unit BG 201 - 240 Give 2 units BG 241 - 280 Give 3 units and recheck BG in 2 hours. BG greater than 280, give 4 units and recheck BG in 2 hours. - If recheck BG is LESS than 280, give no insulin and resume schedule - If recheck BG is GREATER than or EQUAL to 280, give 4 units and repeat BG in 2 hours & call for new insulin orders. DO NOT hold if NPO, unless specifically told to do so. ?? Per Inpatient Subcutaneous Insulin Policy, recheck a BG of greater than 240 mg/dL in 2 hours., Routine Group 2: polyethylene glycoL (Miralax) packet 17 gJump to med 17 g, Oral, DAILY PRN, Starting on Tue01/04/24 at 0618, Until Tue01/09/24 at 1956, Constipation, Give if no BM within last 24 hr. Give concomitantly with any scheduled bowel medications ordered. , Routine And bisacodyL (Dulcolax) suppository 10 mgJump to med 10 mg, Rectal, DAILY PRN, Starting on Tue01/04/24 at 0618, Until Tue01/09/24 at 1956, Constipation, Give if no BM within last 24 hr and rectal fullness is reported or assessed. Give concomitantly with any scheduled bowel medications ordered. , Routine And bisacodyl EC (Dulcolax) tablet 10 mgJump to med 10 mg, Oral, 2 TIMES DAILY PRN, Starting on Tue01/04/24 at 0618, Until Tue01/09/24 at 1956, Constipation, Give if no BM after 24 hr after prior interventions. BM expected in 6-8 hours. If BM desired sooner, use next ordered agent. Give concomitantly with any scheduled bowel medications ordered., Routine And lactulose (Chronulac) (0.67 gram/mL) oral liquid 20 gJump to med 20 g, Oral, DAILY PRN, Starting on Tue01/04/24 at 06, Until Tue01/09/24 at 1956, Constipation, Give if no BM 24 hr after prior interventions or if BM is desired within 2 hr. Give concomitantly with any scheduled bowel medications ordered, Routine And lactulose (Chronulac) (0.67 gram/mL) oral liquid 20 gJump to med 20 g, Oral, DAILY PRN, Starting on Tue01/04/24 at 0618, Until Tue01/09/24 at 1956, Constipation, Give an additional (2nd) dose of lactulose 2 hr after 1st dose if still no BM. Disregard if 1st dose of lactulose not ordered. Give concomitantly with any scheduled bowel medications ordered. , Routine And magnesium citrate oral liquid 296 mLJump to med 296 mL, Oral, ONCE PRN, 1 dose, Starting on Tue01/04/24 at 0618, Until Tue01/09/24 at 1956, Constipation, Give if no BM 2 hr after previous interventions. If 2 hr after mag citrate there is still no BM, see order for tap water enema, if placed. Give concomitantly with any scheduled bowel medications ordered., Routine And Tap water enema (CANCELED) Routine, DAILY PRN, Starting on Tue01/04/24 at 0618, Until Specified, Give if no BM in at least 24 hr and all other ordered bowel regimen medications have been unsuccessful. Give concomitantly with any scheduled bowel medications ordered. Group 3: glucose (Glutose) 40% oral geLJump to med 15-30 g of glucose, Buccal, EVERY 15 MIN PRN, Starting on Tue01/04/24 at 440, Until Tue01/09/24 at 1956, Low blood sugar, For BG 50-70 mg/dL: Oral treatment preferred: If able to drink, give 120 mL juice or regular (not diet) soda OR if NPO, give 15 gram glucose 40% oral gel massaged into buccal mucosa OR if unconscious or uncooperative, give 25 gram (250 mL) dextrose 10% IV over 15 minutes per protocol OR, if no IV access, 1 mg glucagon IM. For BG less than 50 mg/dL: Oral treatment preferred: If able to drink, give 240 mL juice or regular (not diet) soda OR if NPO, give 30 gram glucose 40% oral gel massaged in buccal mucosa OR if unconscious or uncooperative, give 25 gram (250 mL) dextrose 10% IV over 15 minutes per protocol OR, if no IV access, 1 mg glucagon IM. Recheck BG in 15 minutes. May repeat juice/soda, gel, dextrose or glucagon once per episode. Notify provider if hypoglycemia does not resolve after two treatments. Providers should consider the following: administering longer-acting treatments for the duration of active insulin or hypoglycemia agent for persistent hypoglycemia and re-evaluating active insulin orders before administering the next dose. 1 tube of Glutose-15 contains 15 grams of glucose (net weight of tube = 37.5 grams.), Routine Or dextrose 10% infusionJump to med 250 mL, at 1,000 mL/hr, Intravenous, EVERY 15 MIN PRN, Starting on Tue01/04/24 at 044, Until Tue01/09/24 at 1956, For BG 50-70 mg/dL: Oral treatment preferred: If able to drink, give 120 mL juice or regular (not diet) soda OR if NPO, give 15 gram glucose 40% oral gel massaged into buccal mucosa OR if unconscious or uncooperative, give 25 gram (250 mL) dextrose 10% IV over 15 minutes per protocol OR, if no IV access, 1 mg glucagon IM. For BG less than 50 mg/dL: Oral treatment preferred: If able to drink, give 240 mL juice or regular (not diet) soda OR if NPO, give 30 gram glucose 40% oral gel massaged in buccal mucosa OR if unconscious or uncooperative, give 25 gram (250 mL) dextrose 10% IV over 15 minutes per protocol OR, if no IV access, 1 mg glucagon IM. Recheck BG in 15 minutes. May repeat juice/soda, gel, dextrose or glucagon once per episode. Notify provider if hypoglycemia does not resolve after two treatments. Providers should consider the following: administering longer-acting treatments for the duration of active insulin or hypoglycemia agent for persistent hypoglycemia and re-evaluating active insulin orders before administering the next dose. Or glucagon (Glucagen) (1 mg/mL) injection solution 1 mgJump to med 1 mg, Intramuscular, EVERY 15 MIN PRN, Starting on Tue01/04/24 at 0441, Until Tue01/09/24 at 1957, Low blood sugar, For BG 50-70 mg/dL: Oral treatment preferred: If able to drink, give 120 mL juice or regular (not diet) soda OR if NPO, give 15 gram glucose 40% oral gel massaged into buccal mucosa OR if unconscious or uncooperative, give 25 gram (250 mL) dextrose 10% IV over 15 minutes per protocol OR, if no IV access, 1 mg glucagon IM. For BG less than 50 mg/dL: Oral treatment preferred: If able to drink, give 240 mL juice or regular (not diet) soda OR if NPO, give 30 gram glucose 40% oral gel massaged in buccal mucosa OR if unconscious or uncooperative, give 25 gram (250 mL) dextrose 10% IV over 15 minutes per protocol OR, if no IV access, 1 mg glucagon IM. Recheck BG in 15 minutes. May repeat juice/soda, gel, dextrose or glucagon once per episode. Notify provider if hypoglycemia does not resolve after two treatments. Providers should consider the following: administering longer-acting treatments for the duration of active insulin or hypoglycemia agent for persistent hypoglycemia and re-evaluating active insulin orders before administering the next dose. , Routine Group 4: ondansetron ODT (Zofran-ODT) disintegrating tablet 4 mgJump to med 4 mg, Oral, EVERY 8 HOURS PRN, Starting on Tue01/04/24 at 0618, Until Tue01/09/24 at 1957, Nausea, If multiple antiemetics are ordered, use ondansetron first. PO Preferred. If patient unable to take PO, may give IV if ordered. May repeat times one in 45 minutes if ineffective. , Routine Or ondansetron (pf) (Zofran) (2 mg/mL) injection 4 mgJump to med 4 mg, Intravenous, EVERY 8 HOURS PRN, Starting on Tue01/04/24 at 0618, Until Tue01/09/24 at 1957, Nausea, 4 mg,Oral,EVERY 8 HOURS PRN, Nausea,Vomiting If multiple antiemetics are ordered, use ondansetron first. May repeat times one in 30 minutes if ineffective. documented in this encounter Care Teams Manager Of Pharmacy Relationship Specialty Start Date End Date Kimani Leger MD PCP - General Family Medicine 02/10/21 01/29/24 documented as of this encounter
--- OUTSIDE RECORDS SUMMARY | 2024-02-24 16:57 | XMS_ITS | Encounter Summary ---
[place] [address] Care Team Providers Care Launch Engineer Name Role Phone Kimani Leger MD Primary Care Provider Reason for Visit * Reason Comments Hospital Transfer Foot Pain * Auth/Cert (Routine) Specialty Diagnoses / Procedures Referred By Puneet t Referred To Contact Diagnoses Osteomyelitis Gangrene Ramírez Gasca, [facility] [place] [address] [facility] Referral ID Status Reason Start Date Expiration Date Visits Re quested Visits Authorized [id number] 1 1 Encounter Details Date Type Department Care Team (Late st Contact Info) Description 01/04/2024 4:56 PM EDT - 01/04/2024 6:05 PM EDT [place] [address] Thania Wesley MD [facility] [place] [address] AMPUTATION, TRANSMETATARSAL TOE, ONE TOE (WRVU 6.64) Social History Tobacco Use Types Packs/Day Years Used Date Smoking Tobacco: Former Smokeless Tobacco: Never Comments:quit in his 20's Alcohol Use Standard Drinks/Week Comments No 0 (1 standard drink = 0.6 oz pur e alcohol) DH IPV Inpatient Questions Answer Date Recorded [...] Sign Reading Time Taken Comments Blood Pressure 167/66 01/04/2024 5:00 PM EDT Pulse 70 01/04/2024 5:00 PM EDT Temperature 36.7 ??C (98.1 ??F) 01/04/2024 4:27 PM ED T Respiratory Rate 13 01/04/2024 5:00 PM EDT Oxygen Saturation 98% 01/04/2024 5:00 PM EDT Inhaled Oxygen Concentration - - [...] Sindi Rudolph Patient Age: 63 y.o. Language: Taiwanese Race: White Ethnicity: Not nor Admit date: [...] please contact your inpatient physician through the [facility] Business Specialist . Issues afterhours and on weekends will [...] disease, type 2 diabetes, BPH, anxiety/depression presents box strapper sent him to the ED 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 Patient states that he has an ulcer at the base of the foot for years, however the toe infection is new and has only been there for about 5 days. He says that the box strapper was more concerned with the toe than [...] Lab Data: Labs: Recent Labs 01/07/24 0501/06/24 0511 01/05/24 0818 WBC 5.88 5.83 6.56 HGB 10.5* 10.0* 9.8* PLATELET 154 133* 151 Recent Labs 01/07/24 0511 01/06/24 0511 01/05/24 [...] in the last 7068 hours. Invalid input(s): YISIMOKGIUC1G No results for input(s): TROPONINT, CK in the last 7068 hours. No results for input(s): LACTATE, ALBUMIN, CORTISOL, PREALBUMIN in the last 7068 hours. Invalid input(s): [facility] Medicine Attending Daily Progress Note Admit [...] 0319 VBTEXTRPT Department: Vascular Surgery Lab Patient: [id number] (SINDI RUDOLPH) CPT: 32156 Referring Physician: LARISA GEORGE Phone: Indications: Gangrene [...] 01/04/2024 5:40 AM) Result Value WORKSTATION ID [id number] Impression 1. Deep ulceration of 5th toe [...] who have questions please contact the health district manager primary care sales that requested your imaging first. Electronically signed by: Caden Kemp MD, [facility] ([phone]), at 01/04/2024 8:31 AM XR Foot Min 3 views Right (Generic) (Exam End: 01/04/2024 3:55 AM) Result Value WORKSTATION ID [id number] Impression FINDINGS/IMPRESSION: * Mild osteolytic appearance of [...] who have questions please contact the health district manager primary care sales that requested your imaging first. Electronically signed by: Huang Hernandez MD, [facility] ([phone]), at 01/04/2024 4:33 AM XR Foot Min 3 views Right (Generic) (Exam End: 01/04/2024 7:42 PM) Result Value WORKSTATION ID [id number] Impression 1. Interval partial fifth ray resection. Exam to serve as baseline for future comparison. 2. No acute osseous abnormality. Thank you for letting us participate in the care of this patient. If you are a health care provider and have any questions regarding this report, please contact the number below. For patients who have questions please contact the health district manager primary care sales that requested your imaging first. Electronically signed by: Aaron Charles MD, [facility] ([phone]), at 01/05/2024 2:34 AM Studies: Procedure Component Value Units Date/Time Bone Culture, Aerobic & Anaerobic [[id number]] (Abnormal) Collected: 01/04/24 1551 Lab Status: Final result Specimen: Bone from Toe(s), Right Foot Updated: 01/08/24 1353 Narrative: The following orders were created for panel order Bone Culture, Aerobic & Anaerobic. Procedure Abnormality Status --------- ------ Bone Culture[[id number]] Abnormal Final result Anaerobic Culture[[id number]] Final result Please view results for these tests on the individual orders. Bone Culture [[id number]] (Abnormal) Collected: 01/04/24 1551 Lab Status: Final [...] 01/04/2024 5:40 AM) Result Value WORKSTATION ID [id number] Impression 1. Deep ulceration of 5th toe [...] who have questions please contact the health district manager primary care sales that requested your imaging first. Electronically signed by: Caden Kemp MD, [facility] ([phone]), at 01/04/2024 8:31 AM XR Foot Min 3 views Right (Generic) (Exam End: 01/04/2024 3:55 AM) Result Value WORKSTATION ID [id number] Impression FINDINGS/IMPRESSION: * Mild osteolytic appearance of [...] who have questions please contact the health district manager primary care sales that requested your imaging first. Electronically signed by: Huang Hernandez MD, [facility] ([phone]), at 01/04/2024 4:33 AM XR Foot Min 3 views Right (Generic) (Exam End: 01/04/2024 7:42 PM) Result Value WORKSTATION ID [id number] Impression 1. Interval partial fifth ray resection. Exam to serve as baseline for future comparison. 2. No acute osseous abnormality. Thank you for letting us participate in the care of this patient. If you are a health care provider and have any questions regarding this report, please contact the number below. For patients who have questions please contact the health district manager primary care sales that requested your imaging first. Electronically signed by: Aaron Charles MD, [facility] ([phone]), at 01/05/2024 2:34 AM Discharge Conditions/Prognosis: osteomyelitis / good Discharge to: home with hemodialysis in [facility] and [facility] follow up Updated Allergies/ADRs: Allergies Allergen Reactions Mirtazapine Other reaction(s): Other (see comments) Agitation, Nightmares. Immunizations Given this Hospitalization: Immunization History Administered Date(s) Administered Moderna Covid-19 Monovalent 12Yr+ (Switcher 100mcg) 07/28/2020, 08/25/2020, 03/12/2021 Pneumococcal Polysaccharide (Pneumovax [...] mL Refills: 5 OneTouch Verio Flex meter [facility] TEST BLOOD GLUCOSE THREE TIMES A DAY [...] as much as possible. Call your doctor ([phone]) if you develop: Fever greater than 100.5 Severe nausea or vomiting Increasing pain that is not controlled by pain medications Increasing redness, swelling, or drainage from incisions Change in sensation FOLLOW-UP APPOINTMENTS: 1. You will have follow-up appointments at [facility] as indicated below in Future Appointment and [...] 3:30 PM Faye Valle PA Orthopaedics at [facility] Arrive at: Employee Benefits Attorney Area [phone] 01/30/2024 10:00 AM Hafsa Bhatti APRN Infectious Disease at [facility] Arrive at: Home [phone] To view instructions for your video visit, click here, or visit this website: [email or web address] If you have not previously downloaded the [facility] patient portal software, Clipcopia, please do so by clicking one of the links below or searching in your device's lesa store. [employer]izen [employer] devices 02/13/2024 1:00 PM Sue Ramirez MD Infectious Disease at [facility] Arrive at: Employee Benefits Attorney Area [phone] Future Orders Complete By Expires OPAT: Order / Recommendation for Post Discharge IV Antibiotic Management [NWO860 CPT(R)] As directed Process Instructions: If no progress note charted, please enter Clinical details in comments. Scheduling Instructions: Comments: - If this order was signed greater than 72 hours prior to [facility] discharge, please call to confirm the accuracy of this order. Please Fax all results to: OPAT Program Infectious Disease Section [facility], [place] [address] FAX: - After hours, please contact the Infectious Disease Physician riveting machine operator tape control at . - Line care instructions - see flush/heparin orders. Facilities may follow organizational policies/practices regarding heparin. - [facility] for medication administration/blind hooker and catheter care/maintenance authorized. HD Line care instructions per HD facility protocol [facility] for Medication Administration/Hookup and catheter care/maintenance: - Teach Patient/Caregiver goals/self-monitoring/therapy administration to independence per the Nursing Care Plan. - [facility] visit frequency; initial, weekly and 2 PRN visits for complications and/or issueswith therapy for the duration of therapy. - Insert/maintain/replace/remove vascular access device as needed when clinically appropriate and per the Nursing Care Plan. ( PIV: 22 - qauqe) - Change VAD dressing, extension set [...] Sindi Rudolph for admission to Home Health. [address] [place] [phone] (home) Date of : 1960 Inpatient DOCUMENTATION FOR VNA SERVICES (INCLUDING THOSE PATIENTS WITH MEDICARE COVERAGE REQUIRING HOME VNA SERVICES AND/OR HOSPICE SERVICES) PATIENT'S LOCATION: Sindi Rudolph [address] [place] [phone] (home) Cell: Telephone Information: Cutting Table Operator First's Name: . In discussion with the attending physician, it is certified that this patient is under their care and that they, or a Nurse Practitioner, Clinical Nurse specialist or Physician Non Destructive Testing Scientist who is working directly with them, had [...] for managing ADLs. HOME HEALTH CARE AGENCY: [facility]. [address] [place] [id number] START OF CARE: within 24-48 hours of [...] from this patient's PCP: Kimani Leger MD [address] [place] [address] / [facility] [id number] . All [...] Lab Work Interval Expires CBC (with Diff) [XIM884 Custom] Once a week until 03/10/2024 03/10/2024 Process Instructions: Scheduling Instructions: Comments: Questions: Comprehensive metabolic panel Non-fasting [LAB17 Custom] Once a week until 03/10/2024 03/10/2024 Process Instructions: Scheduling Instructions: Comments: Questions: Fasting required?: Non-fasting CRP, acute inflammation [KJL3948 Custom] Once a week until 03/10/2024 03/10/2024 [...] as much as possible. Call your doctor ([phone]) if you develop: Fever greater than 100.5 Severe nausea or vomiting Increasing pain that is not controlled by pain medications Increasing redness, swelling, or drainage from incisions Change in sensation FOLLOW-UP APPOINTMENTS: 1. You will have follow-up appointments at [facility] as indicated below in Future Appointment and [...] week (Mon, Weds, Fri) for 37 days. 01/09/2024 02/15/2024 sevelamer carbonate (Renvela) 800 mg Tablet Take 1 tablet by mouth 3 times daily (with meals). 08/04/2019 01/13/2024 documented as of this encounter Progress Notes * Frederick Grey - 01/09/2024 5:57 PM EDT Office of Care Management/Talent Agent Name: Sindi Rudolph Presenting Issue: Outpatient Dialysis Update Notified [facility] HD unit that patient is scheduled for discharge soon. The dialysis unit is ready for the patient on Tuesday, December 11trh. The patient will have a schedule of Tuesday, Tuesday and Tuesday at 0700. Plan: Discharge Summary and last acute dialysis records will be faxed to the adhesive bandage machine operator upon discharge. This office will be available to the patient, Cardiology Specialist-RN and Die Cast Supervisor for further assistance. Dialysis Unit Address: [facility] Basic Information Address: [address] [place] [address] [place], [place] [id number] [place] [address] Frederick Grey Talent Agent * Haja Garner MD - 01/09/2024 4:49 [...] spent >30 minutes (Day of Discharge Code 24553) involved in the final examination of the patient, discussion of the hospital stay, instructions for continuing care to all relevant caregivers, and preparation of discharge records, prescriptions and referral forms. Plans Discharge to home Follow-up scheduled with HD and ortho and OPAT Please see the Discharge Summary for complete details of any medication changes and additional plans. * Tali Ferro, RN - 01/09/2024 3:02 PM EDT Infectious [...] Fri Start/anticipated end date: 01/04/24-02/15/24 HD Suite: [place], [place] IV Access: AV Fistula Placed: Plan: discharge on OPAT program when medically ready F/u: Weekly labs CRP CBC/diff CMP * Shira Seth, MEDICATION AIDE - 01/09/2024 2:34 PM EDT Images from the original note were not included. [facility] NEPHROLOGY/HYPERTENSION DIALYSIS PROGRESS NOTE PATIENT: Sindi Rudolph : 1960 Kimani Leger MD REASON FOR CONSULTATION: ESRD for Hemodialysis Management INTERVAL HISTORY: Sindi Rudolph is a 63 y.o.male with ESRD on HD ([facility], F, AVF) presenting on 01/03 with ischemic/painful toe requiring amputation. Nephrology engaged for HD management. The patient is seen and examined on HD in [facility]. He endorses an uneventful night. His metabolic [...] Mood appropriate STUDIES: LABS: CBC: Recent Labs 01/07/2451001/06/2451001/05/24 08 WBC 5.88 5.83 6.56 HGB 10.5* 10.0* 9.8* PLATELET 154 133* 151 Chemistry: Recent Labs 01/07/2451001/06/24 0501/05/24 08 NA 138 137 135 K 4.6 4.6 6.3* CL 97* 98 95* CO2 25 26 23 BUN 49* 39* 74* CREATININE 9.75* 8.15* 11.45* GLUCOSE 138 118 185 Recent Labs 01/07/2451001/06/2451001/05/24 0818 CALCIUM 8.7 8.4* 8.3* PHOS 7.1* [...] a 63 y.o.male with ESRD on HD ([facility], F, AVF) presenting on 01/03 with ischemic/painful toe requiring amputation. Nephrology engaged for HD management. The patient is seen and examined on HD in [facility]. He endorses an uneventful night. His metabolic [...] to follow. ESRD on HD MWF at [facility] Plan: Next HD 01/10 per patient schedule [...] patient. This case was discussed with attending top waddy Dr. Zamarripa. We will continue to follow. 01/09/2024 Shira Bautista-CHINO Kwok Page#[phone] [facility] [address] 2nd floor, Employee Benefits Attorney [address] [place] [address] Associated attestation - Shaheen Zamarripa MD - 01/09/2024 6:21 PM EDT This patient was seen in conjunction with Shira Seth APRN. I performed the majority of this shared visit based on medical decision making. SHAHEEN ZAMARRIPA MD Seen and examined on hemodialysis. Stable run. * Miguel Rosales RN - 01/09/2024 11:23 AM EDT Confirmed with Tali at [facility] in [facility] that Cefepime is readily available to [...] AV Fistula Evaluations 06/17/2020 Kimani Larson MD [facility] INTERVENTIONL RAD IR DIALYSIS ACCESS - AV FISTULA EVALUATIONS 11/04/2020 IR Dialysis Access - AV Fistula Evaluations 11/04/2020 Kimani Larson MD [facility] INTERVENTIONL RAD IR DIALYSIS ACCESS - AV FISTULA EVALUATIONS 01/25/2022 IR Dialysis Access - AV Fistula Evaluations 01/25/2022 Roderick Castillo MD [facility] INTERVENTIONL RAD PERIPHERAL IRIDOTOMY 04/06/2012 OD Swendris PRO AMPUTATION METATARSAL+TOE, SINGLE Right 01/04/2024 AMPUTATION, TRANSMETATARSAL TOE, ONE TOE (WRVU 6.64) performed by Thania Wesley MD at [facility] JESUS PRO EXTRACAPSULAR CATARACT RMVL INSERTION IO LENS PROSTH CPLX WO ECP 07/18/2012 PRO EXTRACAPSULAR CATARACT RMVL INSERTION IO LENS PROSTH W/O ECP 11/29/2012 CATARACT EXTRACTION, EXTRACAPSULAR, W/ LENS INSERTION performed by Erasmo George MD at [facility] OSC PRO REPAIR COMPLEX RETINA DETACH VITRECTOMY & MEMB PEEL 04/03/2012, 04/03/12 REPAIR COMPLEX RETINAL DETACHMENT, W/ VITRECTOMY, MEMBRANE PEELING performed by Matteo Diane MD at [facility] MAIN OR PRO REPAIR COMPLEX RETINA DETACH VITRECTOMY & MEMB PEEL 07/31/2012 REPAIR COMPLEX RETINAL DETACHMENT, W/ VITRECTOMY, MEMBRANE PEELING performed by Matteo Diane MD at [facility] MAIN OR PRO REPAIR COMPLEX RETINA DETACH VITRECTOMY & MEMB PEEL 01/08/2013 REPAIR COMPLEX RETINAL DETACHMENT, W/ VITRECTOMY, MEMBRANE PEELING performed by Matteo Diane MD at [facility] MAIN OR PRO TX EXTENSIVE RETINOPATHY, PHOTOCOAGULATION [...] BID heparin (porcine) 5,000 Units Subcutaneous Q8H [facility] insulin lispro 0-8 Units Subcutaneous TID WC [...] laboratory, microbiology, and diagnostic/radiology/procedure results: Recent Labs 01/07/2451001/06/24 0511 01/05/24 0818 WBC 5.88 5.83 6.56 HGB 10.5* 10.0* 9.8* HCT 33.7* 31.9* 31.1* PLATELET 154 133* 151 Recent Labs 01/07/24 0511 01/06/24 0511 01/05/24 [...] and rare Acinetobacter, Staph aureus Bone Culture [[id number]] (Abnormal) Collected: 01/04/24 1551 Lab Status: Final [...] signed by: Caden Kemp MD, [facility] [phone] X-ray foot IMPRESSION FINDINGS/IMPRESSION: * Mild osteolytic appearance of the tuft of the fifth digit distal phalanx, could be sequela of osteomyelitis in appropriate clinical setting (as clinically warranted, could consider MRI evaluation barring contraindication). * Moderately advanced osteoarthropathy involving the midfoot, predominantly medially. Arteriovascular calcifications. Electronically signed by: Huang Hernandez MD, [facility] ([phone]), at 01/04/2024 4:33 AM Please page ID Red team (pager [phone]) with questions or concerns or secure chat On weekends, please contact riveting machine operator tape control ID fellow for urgent matters. Time spent > 75 minutes on the date of service on the eott-qj-hwac encounter, chart review, clinical decision-making, documentation, and [...] with patient. Discharge instructions reviewed with pt. D/wei dowaxed to VNA PLAN MOVING FORWARD: Dispo planning [...] asneeded Surveillance [continuous indirect monitoring]: Hourly rounding, Kellieo, Nursing knowledge exchange,Call doan within reach, Bed [...] included. DEPARTMENT OF INFECTIOUS DISEASE & [facility] INFECTIOUS DISEASE CONSULT PROGRESS NOTE Patient Info: SINDI RUDOLPH, 63 y.o., male 1960 [id number] Admission Date: 01/04/2024 Room/Bed Location: [facility] [place] Consulting Attending: Haja Garner MD Consulting Service: [...] diagnostic/radiology/procedure results: LABS Chemistry Recent Labs 01/07/24 0501/06/2451001/05/24 08 NA 138 137 135 K 4.6 [...] 7068 hours. Lipid Panel Hematology Recent Labs 01/07/2451001/06/2451001/05/24817 WBC 5.88 5.83 6.56 HGB 10.5* 10.0* 9.8* PLATELET 154 133* 151 Recent Labs 01/07/2451001/06/24 05 NEUTROABS 4.15 4.04 Coags No results found for: INR, PT, PTT Lactate No results for input(s): LACTATEVEN, LACTATEART in the last 7068 hours. CRP Recent Labs 01/04/24 034 CRP 33.9* ESR Recent Labs 01/04/24 034 SEDRATE 109* CK No results for input(s): CKMB in the last 168 hours. UA No results found for: SPGRAVITYUA, PHUADIP, PROTEINUADIP, GLUCOSEU, KETONESUA, UROBILIUADIP, BLOODUADIP, NITRATEUA, LEUKOESTERUA, WBCUA, BILIRUBINUA Microbiology: Microbiology Results (Last 30 days) Procedure Component Value Units Date/Time Bone Culture, Aerobic & Anaerobic [[id number]] (Abnormal) Collected: 01/04/24 1551 Lab Status: Final result Specimen: Bone from Toe(s), Right Foot Updated: 01/08/24 1353 Narrative: The following orders were created for panel order Bone Culture, Aerobic & Anaerobic. Procedure Abnormality Status --------- ------ Bone Culture[[id number]] Abnormal Final result Anaerobic Culture[[id number]] Final result Please view results for these tests on the individual orders. Bone Culture [[id number]] (Abnormal) (Susceptibility) Collected: 01/04/24 1551 Lab Status: Final result Specimen: Bone from Toe(s), Right Foot Updated: 01/08/24 0976 Bone Culture Rare Klebsiella oxytoca Rare Acinetobacter [...] is considered susceptible to doxycycline. Anaerobic Culture [[id number]] Collected: 01/04/24 1551 Lab Status: Final result Specimen: Bone from Toe(s), Right Foot Updated: 01/08/24 1353 Anaerobic Culture No anaerobic organisms isolated Imaging/diagnostics: Results for orders placed or performed during the hospital encounter of 01/04/24 MRI Foot wwo Contrast Right (Exam End: 01/04/2024 5:40 AM) Result Value WORKSTATION ID [id number] Impression 1. Deep ulceration of 5th toe [...] who have questions please contact the health district manager primary care sales that requested your imaging first. Electronically signed by: Caden Kemp MD, [facility] ([phone]), at 01/04/2024 8:31 AM XR Foot Min 3 views Right (Generic) (Exam End: 01/04/2024 3:55 AM) Result Value WORKSTATION ID [id number] Impression FINDINGS/IMPRESSION: * Mild osteolytic appearance of [...] who have questions please contact the health district manager primary care sales that requested your imaging first. Electronically signed by: Huang Hernandez MD, [facility] ([phone]), at 01/04/2024 4:33 AM XR Foot Min 3 views Right (Generic) (Exam End: 01/04/2024 7:42 PM) Result Value WORKSTATION ID [id number] Impression 1. Interval partial fifth ray resection. Exam to serve as baseline for future comparison. 2. No acute osseous abnormality. Thank you for letting us participate in the care of this patient. If you are a health care provider and have any questions regarding this report, please contact the number below. For patients who have questions please contact the health district manager primary care sales that requested your imaging first. Electronically signed by: Aaron Charles MD, [facility] ([phone]), at 01/05/2024 2:34 AM IMPRESSION: Sindi Rudolph [...] follow. Please page ID Red team (pager [phone]) with questions or concerns. Joseph Cheek MD Infectious Diseases Fellow [facility] Pager: [phone] 01/08/2024 Infectious Diseases Attending I discussed the case with Dr. Cheek and reviewed the medical record, but I did not interview or examine Mr. Rudolph today. Cultures as above. I agree with Dr. Cheek's recommendations, as detailed above, including to continue treatment with Zosyn alone. * Mareyl Santillan RN - 01/08/2024 4:23 PM EDT [...] asneeded Surveillance [continuous indirect monitoring]: Hourly rounding, Irais, Nursing knowledge exchange,Call doan within reach, Bed alarm Marely Santillan RN * Haja Garner MD - 01/08/2024 2:00 PM EDT Hospital [...] BID heparin (porcine) 5,000 Units Subcutaneous Q8H [facility] insulin lispro 0-8 Units Subcutaneous TID WC [...] 0319 VBTEXTRPT Department: Vascular Surgery Lab Patient: [id number] (SINDI RUDOLPH) CPT: 65407 Referring Physician: LARISA GEORGE Phone: Indications: Gangrene [...] 01/04/2024 5:40 AM) Result Value WORKSTATION ID [id number] Impression 1. Deep ulceration of 5th toe [...] who have questions please contact the health district manager primary care sales that requested your imaging first. Electronically signed by: Caden Kemp MD, [facility] ([phone]), at 01/04/2024 8:31 AM XR Foot Min 3 views Right (Generic) (Exam End: 01/04/2024 3:55 AM) Result Value WORKSTATION ID [id number] Impression FINDINGS/IMPRESSION: * Mild osteolytic appearance of [...] who have questions please contact the health district manager primary care sales that requested your imaging first. Electronically signed by: Huang Hernandez MD, [facility] ([phone]), at 01/04/2024 4:33 AM XR Foot Min 3 views Right (Generic) (Exam End: 01/04/2024 7:42 PM) Result Value WORKSTATION ID [id number] Impression 1. Interval partial fifth ray resection. Exam to serve as baseline for future comparison. 2. No acute osseous abnormality. Thank you for letting us participate in the care of this patient. If you are a health care provider and have any questions regarding this report, please contact the number below. For patients who have questions please contact the health district manager primary care sales that requested your imaging first. Electronically signed by: Aaron Charles MD, [facility] ([phone]), at 01/05/2024 2:34 AM Assessment & Plan: Sindi Rudolph is a 63 y.o. male past medical history of hypertension, hyperlipidemia, end-stage renal disease, type 2 diabetes, BPH, anxiety/depression presents box strapper sent him to the ED myelitis with [...] Resuscitation - Inpatient Team Pager(MD Coverage 22/11): #[phone] PCP: Kimani Leger MD [phone] Attestation: IPI Certification I certify that I am a D-H credentialed attending provider with admitting privileges and that the patient meets or has met medical necessity to require an inpatient IPI level of care meeting a minimumof two midnights or is on the [facility] inpatient only procedure list (status C) due to: toe jacquelineo HAJA GARNER MD 01/08/2024 * Nettie Davis, MEDICATION AIDE - 01/08/2024 9:27 AM EDTSummary: Progress note [...] BID heparin (porcine) 5,000 Units Subcutaneous Q8H [facility] insulin lispro 0-8 Units Subcutaneous TID insulin glargine (Lantus;Semglee) (100 unit/mL) subcutaneous injection [...] % STUDIES: Labs: CBC: Recent Labs 01/07/2451001/06/24 0501/05/24 0818 WBC 5.88 5.83 6.56 HGB 10.5* 10.0* 9.8* PLATELET 154 133* 151 Chemistry: Recent Labs 01/07/2451001/06/24 0511 01/05/24 0818 NA 138 137 135 [...] that it may get pushed back to Tues r/t staffing. Current prescription: 3 hours, Na [...] - Recommend Smiley-ofe. Nettie Davis APRN Nephrology-Hypertension [phone] Pager # [phone] Associated attestation - Shaheen Zamarripa MD - [...] asneeded Surveillance [continuous indirect monitoring]: Hourly rounding, Masbharathio, Nursing knowledge exchange,Call doan within reach, Bed [...] BID heparin (porcine) 5,000 Units Subcutaneous Q8H [facility] insulin lispro 0-8 Units Subcutaneous TID WC [...] 0319 VBTEXTRPT Department: Vascular Surgery Lab Patient: [id number] (SINDI RUDOLPH) CPT: 18110 Referring Physician: ALRISA GEORGE Phone: Indications: Gangrene 5th digit, right [...] 01/04/2024 5:40 AM) Result Value WORKSTATION ID [id number] Impression 1. Deep ulceration of 5th toe [...] who have questions please contact the health district manager primary care sales that requested your imaging first. Electronically signed by: Caden Kemp MD, [facility] ([phone]), at 01/04/2024 8:31 AM XR Foot Min 3 views Right (Generic) (Exam End: 01/04/2024 3:55 AM) Result Value WORKSTATION ID [id number] Impression FINDINGS/IMPRESSION: * Mild osteolytic appearance of [...] who have questions please contact the health district manager primary care sales that requested your imaging first. Electronically signed by: Huang Hernandez MD, [facility] ([phone]), at 01/04/2024 4:33 AM XR Foot Min 3 views Right (Generic) (Exam End: 01/04/2024 7:42 PM) Result Value WORKSTATION ID [id number] Impression 1. Interval partial fifth ray resection. Exam to serve as baseline for future comparison. 2. No acute osseous abnormality. Thank you for letting us participate in the care of this patient. If you are a health care provider and have any questions regarding this report, please contact the number below. For patients who have questions please contact the health district manager primary care sales that requested your imaging first. Electronically signed by: Aaron Charles MD, [facility] ([phone]), at 01/05/2024 2:34 AM Assessment & Plan: Sindi Rudolph is a 63 y.o. male past medical history of hypertension, hyperlipidemia, end-stage renal disease, type 2 diabetes, BPH, anxiety/depression presents box strapper sent him to the ED myelitis with [...] 40 mg daily #ESRD on HD M// - plan for HD today -Sevelamer 1600 mg TID #T2DM -Lantus 20 units daily -6 units 3 times daily -SSL #Neuropathy -Gabapentin 300 mg 3 times daily #BPH -Flomax 0.4 mg nightly # Anxiety/depression -Sertraline 25 mg daily #Routine --DVT ppx: heparin --GI ppx: --Diet No diet orders on file --Dispo: --Code status: Attempt Cardiopulmonary Resuscitation - Inpatient Team Pager(MD Coverage 22/11): #[phone] PCP: Kimani Leger MD [phone] Attestation: IPI Certification I certify that I am a D-H credentialed attending provider with admitting privileges and that the patient meets or has met medical necessity to require an inpatient IPI level of care meeting a minimumof two midnights or is on the [facility] inpatient only procedure list (status C) due [...] BID heparin (porcine) 5,000 Units Subcutaneous Q8H [facility] insulin lispro 0-8 Units Subcutaneous TID WC [...] Tue. Will plan for next treatment on 01/09/24. Current prescription: 3 hours, Na 140, K [...] - Recommend Smiley-ofe. Nettie Davis APRN Nephrology-Hypertension [phone] Pager # [phone] Associated attestation - Shaheen Zamarripa MD - [...] 0319 VBTEXTRPT Department: Vascular Surgery Lab Patient: [id number] (SINDI RUDOLPH) CPT: 15416 Referring Physician: LARISA GEORGE Phone: Indications: Gangrene [...] 01/04/2024 5:40 AM) Result Value WORKSTATION ID [id number] Impression 1. Deep ulceration of 5th toe [...] who have questions please contact the health district manager primary care sales that requested your imaging first. Electronically signed by: Caden Kemp MD, [facility] ([phone]), at 01/04/2024 8:31 AM XR Foot Min 3 views Right (Generic) (Exam End: 01/04/2024 3:55 AM) Result Value WORKSTATION ID [id number] Impression FINDINGS/IMPRESSION: * Mild osteolytic appearance of [...] who have questions please contact the health district manager primary care sales that requested your imaging first. Electronically signed by: Huang Hernandez MD, [facility] ([phone]), at 01/04/2024 4:33 AM XR Foot Min 3 views Right (Generic) (Exam End: 01/04/2024 7:42 PM) Result Value WORKSTATION ID [id number] Impression 1. Interval partial fifth ray resection. Exam to serve as baseline for future comparison. 2. No acute osseous abnormality. Thank you for letting us participate in the care of this patient. If you are a health care provider and have any questions regarding this report, please contact the number below. For patients who have questions please contact the health district manager primary care sales that requested your imaging first. Electronically signed by: Aaron Charles MD, [facility] ([phone]), at 01/05/2024 2:34 AM Assessment & Plan: Sindi Rudolph is a 63 y.o. male past medical history of hypertension, hyperlipidemia, end-stage renal disease, type 2 diabetes, BPH, anxiety/depression presents box strapper sent him to the ED myelitis with [...] 40 mg daily #ESRD on HD M// - plan for HD today -Sevelamer 1600 mg TID #T2DM -Lantus 20 units daily -6 units 3 times daily -SSL #Neuropathy -Gabapentin 300 mg 3 times daily #BPH -Flomax 0.4 mg nightly # Anxiety/depression -Sertraline 25 mg daily #Routine --DVT ppx: heparin --GI ppx: --Diet No diet orders on file --Dispo: --Code status: Attempt Cardiopulmonary Resuscitation - Inpatient Team Pager(MD Coverage 22/11): #[phone] PCP: Kimani Leger MD [phone] Attestation: IPI Certification I certify that I am a D-H credentialed attending provider with admitting privileges and that the patient meets or has met medical necessity to require an inpatient IPI level of care meeting a minimumof two midnights or is on the [facility] inpatient only procedure list (status C) due [...] offloading shoe DVT prophylaxis: per primary, recommend [id number] BID Closure: Sutures (to be removed at Orthopaedic follow-up appointment) (out ~01/24) Dressing: xeroform, 4x4, kerlix, APRYL, change 01/10 (or prior to d/c), then keep until f/u Orthopaedic surgery will sign off and continue to follow remotely to ensure he can mobilize and receives his forefoot offloader. He has discharge instructions and follow-up scheduled. Please page [phone] with questions or concerns. Ender Giang MD 01/06/2024 Future Appointments Date Time Provider Department Center 01/27/2024 3:30 PM Faye Valle PA [facility] ORTH 3C [facility] Associated attestation - Thania Wesley MD - [...] hours) at 01/04/20242034 Last data filed at 01/04/20244 Gross per 24 hour Intake 239.95 ml [...] 172 Last 3 Lytes Recent Labs 01/04/24 034 NA 134* K 5.1* CL 94* CO2 [...] the last 720 hours. VASCULAR: Recent Labs 01/04/24318 VBTEXTRPT Department: Vascular Surgery Lab Patient: [id number] (SINDI RUDOLPH) CPT: 70499 Referring Physician: LARISA GEORGE Phone: Indications: Gangrene [...] 01/04/2024 5:40 AM) Result Value WORKSTATION ID [id number] Impression 1. Deep ulceration of 5th toe [...] who have questions please contact the health district manager primary care sales that requested your imaging first. Electronically signed by: Caden Kemp MD, [facility] ([phone]), at 01/04/2024 8:31 AM XR Foot Min 3 views Right (Generic) (Exam End: 01/04/2024 3:55 AM) Result Value WORKSTATION ID [id number] Impression FINDINGS/IMPRESSION: * Mild osteolytic appearance of [...] who have questions please contact the health district manager primary care sales that requested your imaging first. Electronically signed by: Huang Hernandez MD, [facility] ([phone]), at 01/04/2024 4:33 AM Assessment & Plan: Sindi Rudolph is a 63 y.o. male past medical history of hypertension, hyperlipidemia, end-stage renal disease, type 2 diabetes, BPH, anxiety/depression presents box strapper sent him to the ED myelitis with [...] 40 mg daily #ESRD on HD M// - plan for HD today -Sevelamer 1600 mg TID #T2DM -Lantus 20 units daily -6 units 3 times daily -SSL #Neuropathy -Gabapentin 300 mg 3 times daily #BPH -Flomax 0.4 mg nightly # Anxiety/depression -Sertraline 25 mg daily #Routine --DVT ppx: heparin --GI ppx: --Diet No diet orders on file --Dispo: --Code status: Attempt Cardiopulmonary Resuscitation - Inpatient Team Pager( Coverage 22/11): #[phone] PCP: Kimani Leger MD [phone] Attestation: IPI Certification I certify that I am a D-H credentialed attending provider with admitting privileges and that the patient meets or has met medical necessity to require an inpatient IPI level of care meeting a minimumof two midnights or is on the [facility] inpatient only procedure list (status C) due to: toe jacquelineo CARMELINA Giraldo MD 01/04/2024 * Destinee Fraga RN [...] reach, Bed alarm Destinee Fraga RN * Wiyl Bee - 01/05/2024 4:00 PM EDT Bridge Manager Encounter Note Patient Name: Sindi Rudolph : [id number] MR#: [id number] Admit Date: 01/04/2024 12:41 AM Hospital Day 1 day Narrative:Visited to introduce and assess acceptance of Bridge Manager services. Pt was not available and I [...] 1:45 PM EDT 1345: Provider paged [phone] Lucinda. Can you make pt. renal/diabetic diet so carbs show on meal ticket? * Cynthia Gerber MD - 01/05/2024 1:29 PM EDT NEPHROLOGY PROGRESS NOTE Patient seen and examined on dialysis. Clinical and laboratory data reviewed. Stable treatment. No issues with dialysis or access. A/P: ESRD - Patient's usual schedule is [facility], but he is off schedule today because of surgery yesterday. Unless I hear otherwise from the team, I will plan to run him Tuesday, then return to [facility] next week. If he is being discharged [...] in range. Cynthia Gerber MD Nephrology Pager: [phone] * Destinee Fraga RN - 01/05/2024 7:38 AM EDT Pt. Transferred off unit to HD via bed, IVF infusing per eMar, Pt. A&Ox4 on 2L NC (baseline), appears in NAD. * Toi Dobson IV, DO - 01/05/2024 4:14 AM EDT ORTHOPAEDIC SURGERY [...] XR foot in progress ASSESSMENT / PLAN: Snidi Rudolph is a 63 y.o. male 1 [...] soled shoe DVT prophylaxis: per primary, recommend [id number] BID Closure: Sutures (to be removed at Orthopaedic follow-up appointment) (out ~01/24) Dressing: xeroform, 4x4, kerlix, APRYL, change 01/10 (or prior to d/c), then keep until f/u Tio Dobson IV, DO 01/05/2024 No future appointments. [...] toe R, s/p partial 5th ray resection [place] 01/04/24 Resolved Hospital Problems No resolved problems [...] (133-167)/(64-75) Intake/Output Summary (Last 24 hours) at 01/04/20242147 Last data filed at 01/04/20241999 Gross per [...] soled shoe DVT prophylaxis: per primary, recommend [id number] BID Closure: Sutures (to be removed at [...] on 2LNC, ISACC on CPAP, anxiety/depression presents box strapper sent him to the ED gangrenous diabetic [...] sat > 88% Jennie Curiel MD Pager [phone] * Destinee Fraga RN - 01/04/2024 6:27 PM EDT 1827: Provider paged [phone] Lucinda Can you d/c the q4 insulin [...] and concerns addressed at this time. * sDevon MD - 01/04/2024 7:51 AM EDT ORTHOPAEDIC [...] Pen Injector OneTouch Verio Flex meter Mis insulin needles, disposable, 31 gauge x 3/16 [...] soled shoe DVT prophylaxis: per primary, recommend [id number] BID Antibiotics: per ID/primay team Devon Perez [...] determined intraoperatively. Devon Perez MD Orthopaedic Surgery [facility] Associated attestation - Thania Wesley MD - [...] current use of insulin. who presents to [facility] for Patient presents with: Hospital Transfer Foot Pain . HPI: past medical history of hypertension, hyperlipidemia, end-stage renal disease, type 2 diabetes, BPH, anxiety/depression presents box strapper sent him to the ED 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 Patient states that he has an ulcer at the base of the foot for years, however the toe infection is new and has only been there for about 5 days. He says that the box strapper was more concerned with the toe than [...] Pen Injector OneTouch Verio Flex meter Misc TEST BLOOD [...] AV Fistula Evaluations 06/17/2020 Kimani Larson MD [facility] INTERVENTIONL RAD IR DIALYSIS ACCESS - AV FISTULA EVALUATIONS 11/04/2020 IR Dialysis Access - AV Fistula Evaluations 11/04/2020 Kimani Larson MD [facility] INTER[facility] RAD IR DIALYSIS ACCESS - AV FISTULA EVALUATIONS 01/25/2022 IR Dialysis Access - AV Fistula Evaluations 01/25/2022 Roderick Castillo MD [facility] INTER[facility] RAD PERIPHERAL IRIDOTOMY 04/06/2012 OD Swendris PRO EXTRACAPSULAR CATARACT RMVL INSERTION IO LENS PROSTH CPLX WO ECP 07/18/2012 PRO EXTRACAPSULAR CATARACT RMVL INSERTION IO LENS PROSTH W/O ECP 11/29/2012 CATARACT EXTRACTION, EXTRACAPSULAR, W/ LENS INSERTION performed by Erasmo George MD at [facility] OSC PRO REPAIR COMPLEX RETINA DETACH VITRECTOMY & MEMB PEEL 04/03/2012, 04/03/12 REPAIR COMPLEX RETINAL DETACHMENT, W/ VITRECTOMY, MEMBRANE PEELING performed by Matteo Diane MD at [facility] MAIN OR PRO REPAIR COMPLEX RETINA DETACH VITRECTOMY & MEMB PEEL 07/31/2012 REPAIR COMPLEX RETINAL DETACHMENT, W/ VITRECTOMY, MEMBRANE PEELING performed by Matteo Diane MD at [facility] MAIN OR PRO REPAIR COMPLEX RETINA DETACH VITRECTOMY & MEMB PEEL 01/08/2013 REPAIR COMPLEX RETINAL DETACHMENT, W/ VITRECTOMY, MEMBRANE PEELING performed by Matteo Diane MD at [facility] MAIN OR PRO TX EXTENSIVE RETINOPATHY, PHOTOCOAGULATION [...] 01/04/2024 3:55 AM) Result Value WORKSTATION ID [id number] Impression FINDINGS/IMPRESSION: * Mild osteolytic appearance of [...] who have questions please contact the health district manager primary care sales that requested your imaging first. Electronically signed by: Huang Hernandez MD, [facility] ([phone]), at 01/04/2024 4:33 AM Assessment & Plan: Sindi Rudolph is a 63 y.o. male past medical history of hypertension, hyperlipidemia, end-stage renal disease, type 2 diabetes, BPH, anxiety/depression presents box strapper sent him to the ED myelitis with [...] Per pt, he does not make urine. notified. * Mehnaz Franklin RN - 01/04/2024 [...] [facility]. Patient is [...] Larisa George MD 01/04/24 0237 * Lauren Castillo DO - 01/04/2024 12:57 AM EDT Images [...] of right toe gangrene. Patient presented to [facility] after his box strapper sent him to the ED. He has known osteomyelitis with a gangrenous diabetic foot ulcer of the fifth toe of the right foot. It has been present for several weeksand was started on antibiotics 12/27, clindamycin 3 times a day. He was seen at his box strapper office today for debridement. They were worried [...] who have questions please contact the health district manager primary care sales that requested your imaging first. Film Library- Storage Only DX Foot Final Result MRI Foot wwo Contrast Right (Results Pending) ASSESSMENT & PLAN ED Course as of 01/04/24 0453 Wed Jan 04, 2024 0453 White Blood Cell: 6.37 [...] 01/03/2024 11:20 PM EDT Sending Facility: [facility] Reason for Transfer: wound on r foot [...] 2 GCS: 15 Temp: 36.9 Transporting Service: [facility] Time of Departure: 2300 ETA: 0130 * Rufus Haji DO - 01/03/2024 6:01 PM EDT EM attending brief transfer acceptance note: Sindi Rudolph is a 63 y.o. who I accepted in transfer from [facility] The patient will be evaluated in the [...] transfer were discussed Rufus Haji DO 01/03/24 1805 documented in this encounter Miscellaneous Notes * [...] agency, Hemodialysis Resp Needs: Home O2 Company: [employer] [facility]: Registered Nurse, Physical Therapy, Occupational Therapy Agency Referrals & Follow-up Care: Contact information for follow-up [facility] [address] [address] Kimani Leger MD Relationship: PCP - General [facility] [address] [facility] [id number] Transportation: wheelchair van *Medicaid Ride Wheelchair van/Ambulance? [...] straight, commode chair (Home O2 2L Baseline ([facility]) with POC) DME Needed at Discharge: Patient is insured through: Primary Insurance: MEDICARE Payor: MEDICARE / Plan: MEDICARE PART A & B / Product Type: *No Product type* / Secondary Insurance: MEDICAID [place] Prescription Coverage: Yes This plan was formulated with input from patient and team. All are in agreement with plan. Antonio TOBAR, RN-CM [employer] Print Operator- Medicine Office of Care Management Ext: [phone] Pager: [phone] * Care Management - Ruby Wolfe - 01/09/2024 12:19 PM EDTSummary: Discharge Ride Talent Agent scheduled a medicaid discharge ride with [facility] ([phone]). Business Intelligence Analyst will order picker/assembler patient at entrance #2 at 5:30pm. Business Intelligence Analyst's name is Abdias and he drives a black Subaru [place]. * Plan of Care - Marely Santillan [...] PRN medications, see MAR. Patient oliguric, dialysis Tue/Barbara/Sat . LBM 01/04. [...] walker Surveillance [continuous indirect monitoring]: Hourly rounding, Kellieo, Nursing knowledge exchange,Call doan within reach, Bed [...] AV Fistula Evaluations 06/17/2020 Kimani Larson MD [facility] INTERVENTIONL RAD IR DIALYSIS ACCESS - AV FISTULA EVALUATIONS 11/04/2020 IR Dialysis Access - AV Fistula Evaluations 11/04/2020 Kimani Larson MD [facility] RAD IR DIALYSIS ACCESS - AV FISTULA EVALUATIONS 01/25/2022 IR Dialysis Access - AV Fistula Evaluations 01/25/2022 Roderick Castillo MD [facility] INTER[facility] RAD PERIPHERAL IRIDOTOMY 04/06/2012 OD Tresandris PRO AMPUTATION METATARSAL+TOE, SINGLE Right 01/04/2024 AMPUTATION, TRANSMETATARSAL TOE, ONE TOE (WRVU 6.64) performed by Thania Wesley MD at [facility] JESUS PRO EXTRACAPSULAR CATARACT RMVL INSERTION IO LENS PROSTH CPLX WO ECP 07/18/2012 PRO EXTRACAPSULAR CATARACT RMVL INSERTION IO LENS PROSTH W/O ECP 11/29/2012 CATARACT EXTRACTION, EXTRACAPSULAR, W/ LENS INSERTION performed by Erasmo George MD at [facility] OSC PRO REPAIR COMPLEX RETINA DETACH VITRECTOMY & MEMB PEEL 04/03/2012, 04/03/12 REPAIR COMPLEX RETINAL DETACHMENT, W/ VITRECTOMY, MEMBRANE PEELING performed by Matteo Diane MD at [facility] MAIN OR PRO REPAIR COMPLEX RETINA DETACH VITRECTOMY & MEMB PEEL 07/31/2012 REPAIR COMPLEX RETINAL DETACHMENT, W/ VITRECTOMY, MEMBRANE PEELING performed by Matteo Diane MD at [facility] MAIN OR PRO REPAIR COMPLEX RETINA DETACH VITRECTOMY & MEMB PEEL 01/08/2013 REPAIR COMPLEX RETINAL DETACHMENT, W/ VITRECTOMY, MEMBRANE PEELING performed by Matteo Diane MD at [facility] MAIN OR PRO TX EXTENSIVE RETINOPATHY, PHOTOCOAGULATION [...] laboratory, microbiology, and diagnostic/radiology/procedure results: Recent Labs 01/06/2451001/05/2418 01/04/24340 WBC 5.83 6.56 6.37 HGB 10.0* 9.8* 10.5* HCT 31.9* 31.1* 33.2* PLATELET 133* 151 172 Recent Labs 01/06/2451001/05/24 0818 01/04/24 034 NA 137 135 134* K 4.6 6.3* 5.1* CL 98 95* 94* CO2 26 23 24 BUN 39* 74* 62* CREATININE 8.15* 11.45* 9.47* No results for input(s): AST, ALT, ALKPHOS, BILITOT, BILIDIR in the last 168 hours. Recent Labs 01/04/24 0341 SEDRATE 109* Recent Labs 01/04/24 034 CRP [...] signed by: Caden Kemp MD, [facility] [phone] X-ray foot IMPRESSION FINDINGS/IMPRESSION: * Mild osteolytic appearance of the tuft of the fifth digit distal phalanx, could be sequela of osteomyelitis in appropriate clinical setting (as clinically warranted, could consider MRI evaluation barring contraindication). * Moderately advanced osteoarthropathy involving the midfoot, predominantly medially. Arteriovascular calcifications. Electronically signed by: Huang Hernandez MD, [facility] ([phone]), at 01/04/2024 4:33 AM Please page ID Red team (pager [phone]) with questions or concerns or secure chat On weekends, please contact riveting machine operator tape control ID fellow for urgent matters. Time spent > 75 minutes on the date of service on the [id number] encounter, chart review, clinical decision-making, documentation, and coordination of care with other team members regarding treatment of infection KATELYNN Doyle Attending, Department of Infectious Diseases 8 am [...] From: Transfer from another hospital Location: [facility] Reason for Hospitalization: Infected toe Past medical [...] were you homeless or living in a long term (including now)?: No In the past 12 months has the electric, gas, oil, or water [employer] threatened to shut off services in your [...] straight, commode chair (Home O2 2L Baseline ([facility]) with POC) Home Address confirmed as: [address] [place] [phone] Social & Family Supports: All names listed below confirmed with patient as current and correct Extended Emergency Contact Information Primary Emergency Contact: Adriana Lopez [place], [place] Mobile Relation: Sibling Secondary Emergency Contact: Iva [place], [place] Mobile Relation: Sibling Current Care Provided by: self Provides Primary Care For: no one Caregiver if needed: spouse (Kaye Rudolph J- , ) Quality of Family relationships: helpful, involved, supportive Community Resources being provided currently: homecare agency ([facility], Home O2 ([place] [facility]) 2L) Behavioral Health History: None Substance Use/Abuse [...] Yes ; Prescription Coverage: Yes [facility] [place] [place] [facility] [address] [facility] [address] [facility] [address] Status: Patient is a : Yes Are you enrolled in the VA for your healthcare?: No Primary Care Provider listed: Kimani Leger MD [phone] Patient/Caregiver Goals of Treatment: To get out of here Potential Needs for Transition of Care: none Agency Referrals: I have met with the patient to: discuss discharge planning needs. provide the [facility], Office of Care Management letter from the Dry House Attendant pertaining to rehab referrals. provide a letter describing our affiliations within the [facility] and educate about their right to choose where referrals are sent. provide a list of Home Health Agencies / Durable Medical Equipment vendors which serve their preferred geographic area. provided patient with [facility] Star Quality Rating handout. They have requested referrals to: [facility] (RN, PT/OT) [address] [facility] [address] PHONE: [phone] FAX: [phone] [facility] Home O2, Baseline 2L Main phone number: [phone] Main fax: [phone] Note routed to a Talent Agent who will communicate referrals to facilities and provide any required information. Resumption of Hemodialysis at: [address] [address] Patient is a current client on: Tuesday, Tuesday, Tuesday at 7-11 (time) Transportation to HD is provided by: [employer] Note routed to a Talent Agent who will communicate referrals to facilities and [...] of care as indicated. Antonio TOBAR, RN-CM Ammonia Print Operator- Medicine Office of Care Management Ext: [phone] Pager: [phone] * Initial Assessments - Faye Vera, PT - 01/06/2024 9:40 AM EDT Physical [...] AV Fistula Evaluations 06/17/2020 Kimani Larson MD [facility] INTER[facility] RAD IR DIALYSIS ACCESS - AV FISTULA EVALUATIONS 11/04/2020 IR Dialysis Access - AV Fistula Evaluations 11/04/2020 Kimani Larson MD [facility] RAD IR DIALYSIS ACCESS - AV FISTULA EVALUATIONS 01/25/2022 IR Dialysis Access - AV Fistula Evaluations 01/25/2022 Roderick Castillo MD [facility] INTER[facility]ION[facility] RAD PERIPHERAL IRIDOTOMY 04/06/2012 OD Swendris PRO AMPUTATION METATARSAL+TOE, SINGLE Right 01/04/2024 AMPUTATION, TRANSMETATARSAL TOE, ONE TOE (WRVU 6.64) performed by Thania Wesley MD at [facility] JESUS PRO EXTRACAPSULAR CATARACT RMVL INSERTION IO LENS PROSTH CPLX WO ECP 07/18/2012 PRO EXTRACAPSULAR CATARACT RMVL INSERTION IO LENS PROSTH W/O ECP 11/29/2012 CATARACT EXTRACTION, EXTRACAPSULAR, W/ LENS INSERTION performed by Erasmo George MD at [facility] OSC PRO REPAIR COMPLEX RETINA DETACH VITRECTOMY & MEMB PEEL 04/03/2012, 04/03/12 REPAIR COMPLEX RETINAL DETACHMENT, W/ VITRECTOMY, MEMBRANE PEELING performed by Matteo Diane MD at [facility] MAIN OR PRO REPAIR COMPLEX RETINA DETACH VITRECTOMY & MEMB PEEL 07/31/2012 REPAIR COMPLEX RETINAL DETACHMENT, W/ VITRECTOMY, MEMBRANE PEELING performed by Matteo Diane MD at [facility] MAIN OR PRO REPAIR COMPLEX RETINA DETACH VITRECTOMY & MEMB PEEL 01/08/2013 REPAIR COMPLEX RETINAL DETACHMENT, W/ VITRECTOMY, MEMBRANE PEELING performed by Matteo Diane MD at [facility] MAIN OR PRO TX EXTENSIVE RETINOPATHY, PHOTOCOAGULATION [...] mobility recommendations discussed with nursing. Assessment: Sindi Galileo Rudolph was seen today for physical therapy [...] Time: 20 minutes; Rogelio Vera, PT Pager: [phone] Physical Therapy Inpatient Rehabilitation Department * Initial [...] AV Fistula Evaluations 06/17/2020 Kimani Larson MD [facility] INTER[facility] RAD IR DIALYSIS ACCESS - AV FISTULA EVALUATIONS 11/04/2020 IR Dialysis Access - AV Fistula Evaluations 11/04/2020 Kimani Larson MD [facility] RAD IR DIALYSIS ACCESS - AV FISTULA EVALUATIONS 01/25/2022 IR Dialysis Access - AV Fistula Evaluations 01/25/2022 Roderick Castillo MD [facility] INTER[facility] RAD PERIPHERAL IRIDOTOMY 04/06/2012 OD Swendris PRO AMPUTATION METATARSAL+TOE, SINGLE Right 01/04/2024 AMPUTATION, TRANSMETATARSAL TOE, ONE TOE (WRVU 6.64) performed by Thania Wesley MD at [facility] JESUS PRO EXTRACAPSULAR CATARACT RMVL INSERTION IO LENS PROSTH CPLX WO ECP 07/18/2012 PRO EXTRACAPSULAR CATARACT RMVL INSERTION IO LENS PROSTH W/O ECP 11/29/2012 CATARACT EXTRACTION, EXTRACAPSULAR, W/ LENS INSERTION performed by Erasmo George MD at [facility] OSC PRO REPAIR COMPLEX RETINA DETACH VITRECTOMY & MEMB PEEL 04/03/2012, 04/03/12 REPAIR COMPLEX RETINAL DETACHMENT, W/ VITRECTOMY, MEMBRANE PEELING performed by Matteo Diane MD at [facility] MAIN OR PRO REPAIR COMPLEX RETINA DETACH VITRECTOMY & MEMB PEEL 07/31/2012 REPAIR COMPLEX RETINAL DETACHMENT, W/ VITRECTOMY, MEMBRANE PEELING performed by Matteo Diane MD at [facility] MAIN OR PRO REPAIR COMPLEX RETINA DETACH VITRECTOMY & MEMB PEEL 01/08/2013 REPAIR COMPLEX RETINAL DETACHMENT, W/ VITRECTOMY, MEMBRANE PEELING performed by Matteo Diane MD at [facility] MAIN OR PRO TX EXTENSIVE RETINOPATHY, PHOTOCOAGULATION [...] Subjective: I have a dressing stick and drug safety physician at home Objective: Seen today for OT [...] reach and VSS.RN and team notified via [id number] conversation regarding Pt status, d/c recommendations, and [...] evaluation only Total Minutes, Occupational Therapy: 20 ([id number] (Low Eval)) 2017 OT Evaluation Code Rationale: [...] OTR/L She/her Occupational Therapy Rehabilitation Department Pager: [phone] * Plan of Care - German Prescott [...] when OOB/with ADL's Surveillance [continuous indirect monitoring]: Irais Purposeful Rounding, Nurse Knowledge Exchange * Consult Note - Mitzy Houston [facility] - 01/05/2024 3:02 PM EDT Clinical Pharmacist Note-Vanc Sindi Rudolph [id number] 1960 Sindi Rudolph is a 63 y.o. [...] have. Alternately, during off-hours you may call [phone] to contact a pharmacist. Mitzy Houston RPH Pager [phone] * Consult Note - Jodi Coles RN [...] skin assessment with Reid Ferreira RN and hanna RN. No skin breakdown noted. Pt woke up short of breath for a couple of second and place the cpap. Patient stated he feel better with the cpap at night. Smallsoft brown stool . Patient's pain controlled with scheduled and PRN pain medication.@0630 gave report to Guy of hemodialysis .Patient [...] when OOB/with ADL's Surveillance [continuous indirect monitoring]: Irais Purposeful Rounding, Nurse Knowledge Exchange * Op Note - Thania Wesley MD - 01/04/2024 3:45 PM EDT [facility] Operative Note Patient Name: Sindi Rudolph : [id number] MR#: [id number] Case Date: 01/04/2024 Surgeon: Surgeons and Role: [...] surgical timeout was held in accordance with [facility] protocol. The patient received scheduled antibiotic prior [...] HPI: 63yo man with [facility] HD [facility] presenting with ischemic/painful toe requiring [...] AV Fistula Evaluations 06/17/2020 Kimani Larson MD [facility] RAD IR DIALYSIS ACCESS - AV FISTULA EVALUATIONS 11/04/2020 IR Dialysis Access - AV Fistula Evaluations 11/04/2020 Kimani Larson MD [facility] RAD IR DIALYSIS ACCESS - AV FISTULA EVALUATIONS 01/25/2022 IR Dialysis Access - AV Fistula Evaluations 01/25/2022 Roderick Castillo MD [facility] RAD PERIPHERAL IRIDOTOMY 04/06/2012 OD Efren PRO EXTRACAPSULAR CATARACT RMVL INSERTION IO LENS PROSTH CPLX WO ECP 07/18/2012 PRO EXTRACAPSULAR CATARACT RMVL INSERTION IO LENS PROSTH W/O ECP 11/29/2012 CATARACT EXTRACTION, EXTRACAPSULAR, W/ LENS INSERTION performed by Erasmo George MD at [facility] OSC PRO REPAIR COMPLEX RETINA DETACH VITRECTOMY & MEMB PEEL 04/03/2012, 04/03/12 REPAIR COMPLEX RETINAL DETACHMENT, W/ VITRECTOMY, MEMBRANE PEELING performed by Matteo Diane MD at [facility] MAIN OR PRO REPAIR COMPLEX RETINA DETACH VITRECTOMY & MEMB PEEL 07/31/2012 REPAIR COMPLEX RETINAL DETACHMENT, W/ VITRECTOMY, MEMBRANE PEELING performed by Matteo Diane MD at [facility] MAIN OR PRO REPAIR COMPLEX RETINA DETACH VITRECTOMY & MEMB PEEL 01/08/2013 REPAIR COMPLEX RETINAL DETACHMENT, W/ VITRECTOMY, MEMBRANE PEELING performed by Matteo Diane MD at [facility] MAIN OR PRO TX EXTENSIVE RETINOPATHY, PHOTOCOAGULATION [...] 1,600 mg 1,600 mg Oral TID Ramírez Gasca DO sodium chloride 0.9 % (flush) (BD PosiFlush [...] 10 mg 10 mg Oral BID PRN aRmírez Gasca DO And lactulose (Chronulac) (0.67 gram/mL) oral liquid 20 g 20 g Oral Daily PRN Ramírez Gasca DO And lactulose (Chronulac) (0.67 gram/mL) oral liquid 20 g 20 g Oral Daily PRN Ramírez Gasca DO And magnesium citrate oral liquid 296 mL 296 mL Oral Once PRN Raímrez Gasca DO ondansetron ODT (Zofran-ODT) disintegrating tablet [...] vial 0-8 Units 0-8 Units Subcutaneous TID WC Ramírez Gasca, insulin glargine-ygfn (Semglee) (100 unit/mL) subcutaneous injection vial 30 Units 30 Units Subcutaneous Daily Ramírez Gasca DO insulin lispro (HumaLOG;Admelog) (100 unit/mL) subcutaneous injection vial 1-6 Units 1-6 Units Subcutaneous Q4H [facility] Ramírez Gasca, DO 3 Units at 01/04/24 0615 piperacillin-tazobactam [...] mL infusion 1,750 mg Intravenous Once Ramírez Gasca DO 250 mL/hr at 01/04/24 0856 1,750 [...] Pen Injector OneTouch Verio Flex meter Misc TEST BLOOD [...] AM Result Value Ref Range WORKSTATION ID [id number] MRI Foot wwo Contrast Right Collection Time: 01/04/24 5:40 AM Result Value Ref Range WORKSTATION ID [id number] POC, GLUCOSE Collection Time: 01/04/24 6:10 AM [...] in range. Cynthia Gerber MD Nephrology Pager: [phone] * Plan of Care - Delfina Millard RN - 01/04/2024 8:27 AM EDT Page Sent Successfully Page Confirmation To Pager number: [phone] From Submitter: Delfina Millard Urgency Level: FYI Callback Number: [phone] The following Message was sent: [] - Callback:[phone] ED 34: Eliane Rudolph: Pt going to OR & NPO, give semglee? - Delfina Millard The following status was returned from the windows server specialist: Page for [phone] successfully sent to [phone] having status of Available. * Consult Note - Toi Dobson IV, DO - 01/04/2024 2:04 AM EDT Orthopaedic [...] AV Fistula Evaluations 06/17/2020 Kimani Larson MD [facility] INTERVENTION[facility] RAD IR DIALYSIS ACCESS - AV FISTULA EVALUATIONS 11/04/2020 IR Dialysis Access - AV Fistula Evaluations 11/04/2020 Kimani Larson MD [facility] INTERVENT[facility] RAD IR DIALYSIS ACCESS - AV FISTULA EVALUATIONS 01/25/2022 IR Dialysis Access - AV Fistula Evaluations 01/25/2022 Roderick Castillo MD [facility] INTERVENTION[facility] RAD PERIPHERAL IRIDOTOMY 04/06/2012 OD Swendris PRO EXTRACAPSULAR CATARACT RMVL INSERTION IO LENS PROSTH CPLX WO ECP 07/18/2012 PRO EXTRACAPSULAR CATARACT RMVL INSERTION IO LENS PROSTH W/O ECP 11/29/2012 CATARACT EXTRACTION, EXTRACAPSULAR, W/ LENS INSERTION performed by Erasmo George MD at [facility] OSC PRO REPAIR COMPLEX RETINA DETACH VITRECTOMY & MEMB PEEL 04/03/2012, 04/03/12 REPAIR COMPLEX RETINAL DETACHMENT, W/ VITRECTOMY, MEMBRANE PEELING performed by Matteo Diane MD at [facility] MAIN OR PRO REPAIR COMPLEX RETINA DETACH VITRECTOMY & MEMB PEEL 07/31/2012 REPAIR COMPLEX RETINAL DETACHMENT, W/ VITRECTOMY, MEMBRANE PEELING performed by Matteo Diane MD at [facility] MAIN OR PRO REPAIR COMPLEX RETINA DETACH VITRECTOMY & MEMB PEEL 01/08/2013 REPAIR COMPLEX RETINAL DETACHMENT, W/ VITRECTOMY, MEMBRANE PEELING performed by Matteo Diane MD at [facility] MAIN OR PRO TX EXTENSIVE RETINOPATHY, PHOTOCOAGULATION [...] Pen Injector OneTouch Verio Flex meter Misc TEST BLOOD [...] input(s): WBC, HGB, HCT, PLATELET in the [id number] hours. Imaging: Xray (01/04/24): Right foot: Pending [...] of the MRI/JOSÉ MIGUEL studies, please page [phone] for review. - Activity: WBAT RLE in hard soled shoe - DVT prophylaxis: per primary - Antibiotics: per ID - Diet: Regular diet - Medications: Per primary - Imaging / studies needed: MRI right foot, ABIs - Follow-up: Pending course Toi Dobson IV, DO Orthopaedic Surgery, 7400 Associated attestation - Thania Wesely MD - 01/05/2024 1:41 PM EDT I [...] Osteomyelitis R 5th toe Amputation Metatarsal+Toe, Single (14584) 01/04/2024 3:26 PM EDT Osteomyelitis R 5th [...] - 199 mg/dL 01/09/2024 11:34 AM EDT [facility] Comment:Supplemental ranges: <140 mg/dL before meals <180 mg/dL all other times of the day. Blood CAPILLARY BLOOD / Unknown 01/09/2024 11:34 AM EDT 01/09/2024 11:34 AM EDT Haja Garner MD POINT OF CARE TEST O RDERABLES [facility] [place] [address] * POC, GLUCOSE (01/09/2024 7:37 AM EDT) Glucometer, POC 96 65 - 199 mg/dL 01/09/2024 7:37 AM EDT [facility] Comment:Supplemental ranges: <140 mg/dL before meals <180 mg/dL all other times of the day. Blood CAPILLARY BLOOD / Unknown 01/09/2024 7:37 AM EDT 01/09/2024 7:37 AM EDT Haja Garner MD POINT OF CARE TEST O ANTONETTE Performing Organization Address City/[facility]/ZIP Co de Phone Number [facility] [place] [address] * POC, GLUCOSE (01/08/2024 8:59 PM EDT) Glucometer, POC 145 65 - 199 mg/dL 01/08/2024 8:59 PM EDT [facility] Comment:Supplemental ranges: <140 mg/dL before meals <180 mg/dL all other times of the day. Blood CAPILLARY BLOOD / Unknown 01/08/2024 8:59 PM EDT 01/08/2024 9:00 PM EDT Haja Garner MD POINT OF CARE TEST O ANTONETTE Performing Organization Address [facility] Co de Phone Number [facility] [place] [address] * POC, GLUCOSE (01/08/2024 4:52 PM EDT) Glucometer, POC 139 65 - 199 mg/dL 01/08/2024 4:52 PM EDT [facility] Comment:Supplemental ranges: <140 mg/dL before meals <180 mg/dL all other times of the day. Blood CAPILLARY BLOOD / Unknown 01/08/2024 4:52 PM EDT 01/08/2024 4:52 PM EDT Haja Garner MD POINT OF CARE TEST O ANTONETTE Performing Organization Address City/[facility]/ZIP Co de Phone Number [facility] [place] [address] * POC, GLUCOSE (01/08/2024 12:10 PM EDT) Glucometer, POC 197 65 - 199 mg/dL 01/08/2024 12:10 PM EDT [facility] Comment:Supplemental ranges: <140 mg/dL before meals <180 mg/dL all other times of the day. Blood CAPILLARY BLOOD / Unknown 01/08/2024 12:10 PM EDT 01/08/2024 12:10 PM EDT Haja Garner MD POINT OF CARE TEST O ANTONETTE Performing Organization Address [facility] Co de Phone Number [facility] [place] [address] * (ABNORMAL) POC, GLUCOSE (01/08/2024 11:42 AM EDT) Glucometer, POC 209(H) 65 - 199 mg/dL 01/08/2024 11:42 AM EDT [facility] Comment:Supplemental ranges: <140 mg/dL before meals <180 mg/dL all other times of the day. Blood CAPILLARY BLOOD / Unknown 01/08/2024 11:42 AM EDT 01/08/2024 11:42 AM EDT Haja Garner MD POINT OF CARE TEST O ANTONETTE Performing Organization Address [facility] Co de Phone Number [facility] [place] [address] * POC, GLUCOSE (01/08/2024 7:39 AM EDT) Glucometer, POC 132 65 - 199 mg/dL 01/08/2024 7:39 AM EDT [facility] Comment:Supplemental ranges: <140 mg/dL before meals <180 mg/dL all other times of the day. Blood CAPILLARY BLOOD / Unknown 01/08/2024 7:39 AM EDT 01/08/2024 7:40 AM EDT Haja Garner MD POINT OF CARE TEST O ANTONETTE Performing Organization Address [facility] Co de Phone Number [facility] [place] [address] * POC, GLUCOSE (01/07/2024 7:58 PM EDT) Glucometer, POC 184 65 - 199 mg/dL 01/07/2024 7:59 PM EDT [facility] Comment:Supplemental ranges: <140 mg/dL before meals <180 mg/dL all other times of the day. Blood CAPILLARY BLOOD / Unknown 01/07/2024 7:58 PM EDT 01/07/2024 7:59 PM EDT Haja Garner MD POINT OF CARE TEST O RDERAROSIE Performing Organization Address City/[facility]/ZIP Co de Phone Number [facility] [place] [address] * POC, GLUCOSE (01/07/2024 5:19 PM EDT) Glucometer, POC 136 65 - 199 mg/dL 01/07/2024 5:19 PM EDT [facility] Comment:Supplemental ranges: <140 mg/dL before meals <180 mg/dL all other times of the day. Blood CAPILLARY BLOOD / Unknown 01/07/2024 5:19 PM EDT 01/07/2024 5:19 PM EDT Haja Garner MD POINT OF CARE TEST O FREDERICKERAROSIE Performing Organization Address City/[facility]/ZIP Co de Phone Number [facility] [place] [address] * POC, GLUCOSE (01/07/2024 11:54 AM EDT) Glucometer, POC 85 65 - 199 mg/dL 01/07/2024 11:54 AM EDT [facility] Comment:Supplemental ranges: <140 mg/dL before meals <180 mg/dL all other times of the day. Blood CAPILLARY BLOOD / Unknown 01/07/2024 11:54 AM EDT 01/07/2024 11:54 AM EDT Haja Garner MD POINT OF CARE TEST O RDERABLES Performing Organization Address [facility] Co de Phone Number [facility] [place] [address] * POC, GLUCOSE (01/07/2024 7:48 AM EDT) Glucometer, POC 128 65 - 199 mg/dL 01/07/2024 7:48 AM EDT [facility] Comment:Supplemental ranges: <140 mg/dL before meals <180 mg/dL all other times of the day. Blood CAPILLARY BLOOD / Unknown 01/07/2024 7:48 AM EDT 01/07/2024 7:49 AM EDT Haja Garner MD POINT OF CARE TEST O ANTONETTE Performing Organization Address [facility] Co de Phone Number [facility] [place] [address] * (ABNORMAL) Phosphorus (01/07/2024 5:11 AM EDT) Phosphorus 7.1(H) 2.5 - 4.5 mg/dL 01/07/2024 9:02 AM EDT [facility] Blood VENOUS BLOOD SPECIMEN / Unknown IP Care Team Draw / Unknown 01/07/2024 5:11 AM EDT 01/07/2024 5:36 AM EDT Nettie Davis APRN CHEMISTRY ORDER ROBBIE Performing Organization Address City/[facility]/ZIP Co de Phone Number [facility] [place] [address] * (ABNORMAL) Basic Metabolic Panel (01/07/2024 5:11 AM EDT) Glucose 138 65 - 199 mg/dL 01/07/2024 6:22 AM EDT [facility] Comment:Glucose Concentratio n >=200 mg/dL plus symptoms is consistent with Diabetes Mellitus. Blood Urea Nitrogen 49(H) 10 - 20 mg/dL 01/07/2024 6:22 AM EDT [facility] Creatinine 9.75(H) 0.80 - 1.50 mg/dL [...] 5:11 AM EDT 01/07/2024 5:36 AM EDT Ramíerz Gasca DO CHEMISTRY ORDERABL ES [facility] [place] [address] * (ABNORMAL) CBC (with Diff) (01/07/2024 5:11 AM EDT) White Blood Cell 5.88 4.00 - 9.50 x10(3)/mc L 01/07/2024 5:47 AM [facility] Red Blood Cell 3.39(L) [...] 0.00 x10(3)/mc L 01/07/2024 5:47 AM EDT [facility] Neutrophil % 70.5 % 01/07/2024 5:47 AM EDT [facility] Neutrophil Absolute (ANC) - Automated 4.15 1.70 - 6.10 x10(3)/mc L 01/07/2024 5:47 AM EDT [facility] Lymph % 10.9 % 01/07/2024 5:47 AM EDT [facility] Lymph Absolute 0.64(L) 0.90 - 3.20 x10(3)/mc L 01/07/2024 5:47 AM EDT [facility] Monocyte % 8.8 % 01/07/2024 5:47 AM EDT [facility] Monocyte Absolute 0.52 0.30 - 0.90 x10(3)/mc L 01/07/2024 5:47 AM EDT [facility] Eos % 8.0 % 01/07/2024 5:47 AM EDT [facility] Eos Absolute 0.47(H) 0.00 - 0.40 x10(3)/mc L 01/07/2024 5:47 AM EDT [facility] Basophil % 0.9 % 01/07/2024 5:47 AM EDT [facility] Baso Absolute 0.05 0.00 - 0.10 x10(3)/mc L 01/07/2024 5:47 AM EDT [facility] Immature Gran % 0.9 % 5:47 AM EDT [facility] Immature Gran Absolute 0.05(H) 0.00 - 0.04 x10(3)/mc L 01/07/2024 5:47 AM EDT [facility] Blood VENOUS BLOOD SPECIMEN / Unknown IP Care Team Draw / Unknown 01/07/2024 5:11 AM EDT 01/07/2024 5:36 AM EDT Ramírez Rusty Gasca DO HEMATOLOGY ORDERAB LES [facility] [place] [address] * POC, GLUCOSE (01/06/2024 10:47 PM EDT) Glucometer, POC 138 65 - 199 mg/dL 01/06/2024 10:47 PM EDT [facility] Comment:Supplemental ranges: <140 mg/dL before meals <180 mg/dL all other times of the day. Blood CAPILLARY BLOOD / Unknown 01/06/2024 10:47 PM EDT 01/06/2024 10:47 PM EDT Jesús Muñiz MD POINT OF CARE TEST ORDERABLES [facility] [place] [address] * POC, GLUCOSE (01/06/2024 4:35 PM EDT) Glucometer, POC 174 65 - 199 mg/dL 01/06/2024 4:38 PM EDT [facility] Comment:Supplemental ranges: <140 mg/dL before meals <180 mg/dL all other times of the day. Blood CAPILLARY BLOOD / Unknown 01/06/2024 4:35 PM EDT 01/06/2024 4:38 PM EDT Jesús Muñiz MD POINT OF CARE TEST ORDERABLES [facility] [place] [address] * POC, GLUCOSE (01/06/2024 11:38 AM EDT) Glucometer, POC 145 65 - 199 mg/dL 01/06/2024 11:38 AM EDT [facility] Comment:Supplemental ranges: <140 mg/dL before meals <180 mg/dL all other times of the day. Blood CAPILLARY BLOOD / Unknown 01/06/2024 11:38 AM EDT 01/06/2024 11:38 AM EDT Jesús Muñiz MD POINT OF CARE TEST ORDERABLES [facility] [place] [address] * (ABNORMAL) U Albumin/Cre Ratio (01/06/2024 11:22 AM EDT) Albumin, Urine 325.3 mg/L 01/06/2024 1:47 PM EDT [facility] Creatinine, Urine 125 mg/dL 024 1:47 PM EDT [facility] Albumin / Creatinine Ratio, Urine 260(H) 0 - 29 mcg/mg Cr 01/06/2024 1:47 PM EDT [facility] Comment: Reference Ranges: ?? <30 [...] AM EDT Ramírez Gasca DO URINE ORDERABLES [facility] [place] [address] * POC, GLUCOSE (01/06/2024 7:41 AM EDT) Glucometer, POC 104 65 - 199 mg/dL 01/06/2024 7:41 AM EDT [facility] Comment:Supplemental ranges: <140 mg/dL before meals <180 mg/dL all other times of the day. Blood CAPILLARY BLOOD / Unknown 01/06/2024 7:41 AM EDT 01/06/2024 7:41 AM EDT Carmelina Giraldo MD POINT OF CARE PRO T ORDERABLES Performing Organization Address [facility] Co de Phone Number [facility] [place] [address] * Vancomycin Level, Random (01/06/2024 5:11 AM EDT) Vancomycin, Random 19.9 mg/L 2023 6:02 AM EDT [facility] Comment:This level is for de termination of the patient's vancomycin nlzk-cycvp-qkc-curve (AUC) value. Contact the inpatient pharmacy for interpretation. Blood VENOUS BLOOD SPECIMEN / Unknown IP Care Team Draw / Unknown 01/06/2024 5:11 AM EDT 01/06/2024 5:31 AM EDT Carmelina Giraldo MD CHEMISTRY ORDERAB LES Performing Organization Address [facility] Co de Phone Number [facility] [place] [address] * (ABNORMAL) Basic Metabolic Panel (01/06/2024 5:11 AM EDT) Glucose 118 65 - 199 mg/dL 01/06/2024 6:20 AM EDT [facility] Comment:Glucose Concentratio n >=200 mg/dL plus symptoms is consistent with Diabetes Mellitus. Blood Urea Nitrogen 39(H) 10 - 20 mg/dL 01/06/2024 6:20 AM EDT [facility] Creatinine 8.15(H) 0.80 - 1.50 mg/dL 01/06/2024 6:20 AM EDT [facility] Sodium 137 135 - 145 mMol/L 01/06/2024 6:20 AM EDT [facility] Potassium 4.6 3.5 - 5.0 mMol/L 01/06/2024 6:20 AM [facility] Chloride 98 98 - 107 mMol/L 01/06/2024 6:20 AM [facility] Carbon Dioxide 26 22 - 31 mMol/L 01/06/2024 6:[facility] Anion Gap 13 5 - 15 mMol/L 01/06/2024 6:20 AM T [facility] Calcium 8.4(L) 8.5 - 10.5 mg/dL [...] EDT Ramírez Gasca DO CHEMISTRY ORDERABL ES [facility] [place] [address] * (ABNORMAL) CBC (with Diff) (01/06/2024 5:11 [...] 6.10 x10(3)/mc L 01/06/2024 5:46 AM EDT [facility] Lymph % 12.5 % 01/06/2024 5:46 AM EDT [facility] Lymph Absolute 0.73(L) 0.90 - 3.20 x10(3)/mc L 01/06/2024 5:46 AM EDT [facility] Monocyte % 9.9 % 01/06/2024 5:46 AM EDT [facility] Monocyte Absolute 0.58 0.30 - 0.90 x10(3)/mc L 01/06/2024 5:46 AM EDT [facility] Eos % 7.2 % 01/06/2024 5:46 AM EDT [facility] Eos Absolute 0.42(H) 0.00 - 0.40 x10(3)/mc L 01/06/2024 5:46 AM EDT [facility] Basophil % 0.7 % 01/06/2024 5:46 AM EDT [facility] Baso Absolute 0.04 0.00 - 0.10 x10(3)/mc L 01/06/2024 5:46 AM EDT [facility] Immature Gran % 0.3 % 5:46 AM EDT [facility] Immature Gran Absolute 0.02 0.00 - 0.04 x10(3)/mc L 01/06/2024 5:46 AM EDT [facility] Blood VENOUS BLOOD SPECIMEN / Unknown IP Care Team Draw / Unknown 01/06/2024 5:11 AM EDT 01/06/2024 5:31 AM EDT Ramírez Gasca DO HEMATOLOGY ORDERAB LES [facility] [place] [address] * POC, GLUCOSE (01/05/2024 9:14 PM EDT) [facility] Signature Glucometer, POC 155 65 - 199 mg/dL 01/05/2024 9:14 PM EDT [facility] Comment:Supplemental ranges: <140 mg/dL before meals <180 mg/dL all other times of the day. Blood CAPILLARY BLOOD / Unknown 01/05/2024 9:14 PM EDT 01/05/2024 9:14 PM EDT Carmelina Giraldo MD POINT OF CARE PRO T ORDERABLES [facility] [place] [address] * POC, GLUCOSE (01/05/2024 3:59 PM EDT) Glucometer, POC 166 65 - 199 mg/dL 01/05/2024 3:59 PM EDT [facility] Comment:Supplemental ranges: <140 mg/dL before meals <180 mg/dL all other times of the day. Blood CAPILLARY BLOOD / Unknown 01/05/2024 3:59 PM EDT 01/05/2024 3:59 PM EDT Carmelina Giraldo MD POINT OF CARE PRO T ORDERABLES Performing Organization Address City/[facility]/ZIP Co de Phone Number [facility] [place] [address] * POC, GLUCOSE (01/05/2024 11:43 AM EDT) Glucometer, POC 127 65 - 199 mg/dL 01/05/2024 11:44 AM EDT [facility] Comment:Supplemental ranges: <140 mg/dL before meals <180 mg/dL all other times of the day. Blood CAPILLARY BLOOD / Unknown 01/05/2024 11:43 AM EDT 01/05/2024 11:44 AM EDT Carmelina Giraldo MD POINT OF CARE PRO T ORDERABLES [facility] [place] [address] * Vancomycin Level, Random (01/05/2024 8:18 AM EDT) Vancomycin, Random 26.6 mg/L 2023 9:17 AM EDT [facility] Comment:This level is for de termination of the patient's vancomycin smtx-djmmf-bli-curve (AUC) value. Contact the inpatient pharmacy for interpretation. Blood VENOUS BLOOD SPECIMEN / Unknown IP Care Team Draw / Unknown 01/05/2024 8:18 AM EDT 01/05/2024 8:22 AM EDT Jennie Curiel MD CHEMISTRY ORDERABLES [facility] [place] [address] * (ABNORMAL) Basic Metabolic Panel (01/05/2024 8:18 AM EDT) Glucose 185 65 - 199 mg/dL 01/05/2024 9:35 AM EDT [facility] Comment:Glucose Concentratio n >=200 mg/dL plus symptoms is consistent with Diabetes Mellitus. Blood Urea Nitrogen 74(H) 10 - 20 mg/dL 01/05/2024 9:35 AM T [facility] Creatinine 11.45(HHH ) 0.80 - 1.50 mg/dL 01/05/2024 9:35 AM [facility] Sodium 135 135 - 145 mMol/L 01/05/2024 9:35 AM [facility] Potassium 6.3(HHH) 3.5 - 5.0 mMol/L 01/05/2024 9:35 AM [facility] Chloride 95(L) 98 - 107 mMol/L 01/05/2024 9:35 AM EDT [facility] Carbon Dioxide 23 22 - 31 mMol/L 01/05/2024 9:35 AM [facility] Anion Gap 17(H) 5 - 15 mMol/L 01/05/2024 9:35 AM EDT [facility] Calcium 8.3(L) 8.5 - 10.5 mg/dL 01/05/2024 9:35 AM EDT [facility] Est Glomerular Filtration Rate - Male 5 mL/min/1. 73 m?? 01/05/2024 9:35 AM EDT [facility] Comment: This patient's estimated GFR [...] EDT Ramírez Gasca DO CHEMISTRY ORDERABL ES [facility] [place] [address] * (ABNORMAL) CBC (with Diff) (01/05/2024 8:18 AM EDT) White Blood Cell 6.56 4.00 - 9.50 x10(3)/mc L 01/05/2024 8:35 AM EDT [facility] Red Blood Cell 3.16(L) 4.58 - 5.54 x10(6)/mc L 01/05/2024 8:35 AM EDT [facility] Hemoglobin 9.8(L) 13.7 - 16.5 g/dL 01/05/2024 8:35 AM EDT [facility] Hematocrit 31.1(L) 40.5 - 48.5 % 01/05/2024 8:35 AM EDT [facility] Mean Cell Volume 98.4(H) 82.9 [...] Monocyte % 7.9 % 01/05/2024 8:35 AM [facility] Monocyte Absolute 0.52 0.30 - 0.90 x10(3)/mc L 01/05/2024 8:35 AM EDT [facility] Eos % 8.1 % 01/05/2024 8:35 AM EDT [facility] Eos Absolute 0.53(H) 0.00 - 0.40 x10(3)/mc L 01/05/2024 8:35 AM EDT [facility] Basophil % 0.8 % 01/05/2024 8:35 AM EDT [facility] Baso Absolute 0.05 0.00 - 0.10 x10(3)/mc L 01/05/2024 8:35 AM EDT [facility] Immature Gran % 0.5 % 8:35 AM EDT [facility] Immature Gran Absolute 0.03 0.00 - 0.04 x10(3)/mc L 01/05/2024 8:35 AM EDT [facility] Blood VENOUS BLOOD SPECIMEN / Unknown IP Care Team Draw / Unknown 01/05/2024 8:18 AM EDT 01/05/2024 8:22 AM EDT Ramírez Gasca DO HEMATOLOGY ORDERAB LES [facility] [place] [address] * (ABNORMAL) POC, GLUCOSE (01/04/2024 8:58 PM EDT) [facility] Signature Glucometer, POC 209(H) 65 - 199 mg/dL 01/04/2024 9:01 PM EDT [facility] Comment:Supplemental ranges: <140 mg/dL before meals <180 mg/dL all other times of the day. Blood CAPILLARY BLOOD / Unknown 01/04/2024 8:58 PM EDT 01/04/2024 9:01 PM EDT Jennie Curiel MD POINT OF CARE TEST O RDERAROSIE [facility] [place] [address] * XR Foot Min 3 views Right (Generic) (01/04/2024 7:42 PM EDT) Cleo Signature WORKSTATION ID [id number] RAD Anatomical Region Laterality Modality Foot Right [...] who have questions please contact the health district manager primary care sales that requested your imaging first. ? Electronically signed by: Aaron Charles MD, [facility] ??([phone]), at 01/05/2024 2:34 AM Narrative 01/05/2024 2:34 [...] patients who have questions please contactthe health district manager primary care sales that requested your imaging first. Electronically signed by: Aaron Charles MD, [facility]([phone]), at 01/05/2024 2:34 AM Jennie Curiel MD IMG DX ORDERABLES * POC, GLUCOSE (01/04/2024 5:49 PM EDT) Glucometer, POC 155 65 - 199 mg/dL 01/04/2024 5:50 PM EDT [facility] Comment:Supplemental ranges: <140 mg/dL before meals <180 mg/dL all other times of the day. Blood CAPILLARY BLOOD / Unknown 01/04/2024 5:49 PM EDT 01/04/2024 5:50 PM EDT Jennie Curiel MD POINT OF CARE TEST O RDERABLES [facility] [place] [address] * POC, GLUCOSE (01/04/2024 4:57 PM EDT) Glucometer, POC 137 65 - 199 mg/dL 01/04/2024 4:57 PM EDT [facility] Comment:Supplemental ranges: <140 mg/dL before meals <180 mg/dL all other times of the day. Blood CAPILLARY BLOOD / Unknown 01/04/2024 4:57 PM EDT 01/04/2024 4:57 PM EDT Jennie Curiel MD POINT OF CARE TEST O RDERABLES Performing Organization Address City/[facility]/ZIP Co de Phone Number [facility] [place] [address] * Anaerobic Culture (01/04/2024 3:51 PM EDT) Anaerobic Culture No anaerobic organisms isolated 01/08/2024 1:53 PM EDT [facility] Bone STRUCTURE OF TOE OF RIGHT FOOT / Unknown 01/04/2024 3:51 PM EDT Comment:Diabetes Thania Wesley MD MICROBIOLOGY - GENER AL ORDERABLES Performing Organization Address [facility] Co de Phone Number [facility] [place] [address] * (ABNORMAL) Bone Culture (01/04/2024 3:51 PM EDT) Bone Culture Rare Klebsiella oxytoca(A) VITEK 2 METHOD 02/07/2024 10:09 AM EDT [facility] Bone Culture Rare Acinetobacter species(A) VITEK 2 METHOD 02/07/2024 10:09 AM EDT [facility] Bone Culture Rare Staphylococcus aureus(A) VITEK 2 METHOD 02/07/2024 10:09 AM EDT [facility] Gram Stain Few neutrophils 10:09 AM EDT [facility] Gram Stain No microorganisms seen 02/07/2024 10:09 AM EDT [facility] Bone STRUCTURE OF TOE OF [...] Wesley MD MICROBIOLOGY - GENER AL ORDERABLES [facility] [place] [place] [address] * POC, GLUCOSE (01/04/2024 11:26 AM EDT) Glucometer, POC 181 65 - 199 mg/dL 01/04/2024 11:32 AM EDT [facility] Comment:Supplemental ranges: <140 mg/dL before meals <180 mg/dL all other times of the day. Blood CAPILLARY BLOOD / Unknown 01/04/2024 11:26 AM EDT 01/04/2024 11:32 AM EDT Jennie Curiel MD POINT OF CARE TEST O RDERABLES Performing Organization Address City/[facility]/ZIP Co de Phone Number [facility] [place] [address] * POC, GLUCOSE (01/04/2024 6:10 AM EDT) Glucometer, POC 197 65 - 199 mg/dL 01/04/2024 6:10 AM EDT [facility] Comment:Supplemental ranges: <140 mg/dL before meals <180 mg/dL all other times of the day. Blood CAPILLARY BLOOD / Unknown 01/04/2024 6:10 AM EDT 01/04/2024 6:10 AM EDT Ramírez Gasca DO POINT OF CARE TEST ORDERABLES [facility] [place] [place] [address] * MRI Foot wwo Contrast Right (01/04/2024 5:40 AM EDT) WORKSTATION ID [id number] RAD Anatomical Region Laterality Modality Foot Right [...] who have questions please contact the health district manager primary care sales that requested your imaging first. ? Electronically signed by: Caden Kemp MD, [facility] ([phone]), at 01/04/2024 8:31 AM Narrative 01/04/2024 8:31 [...] 1st metatarsal head, 0.9 cm wide (series [id number] image 72). ??The ulceration does not contact [...] underneath 1st metatarsal head, 0.9 cmwide (series [id number] image 72). The ulceration does not contact [...] patients who have questions please contactthe health district manager primary care sales that requested your imaging first. Electronically signed by: Caden Kemp MD, [facility]([phone]), at 01/04/2024 8:31 AM Ramírez Gasca DO [facility] MRI ORDERABLES * XR Foot Min 3 views Right (Generic) (01/04/2024 3:55 AM EDT) WORKSTATION ID [id number] RAD Anatomical Region Laterality Modality Foot Right [...] who have questions please contact the health district manager primary care sales that requested your imaging first. ? Electronically signed by: Huang Hernandez MD, [facility] ([phone]), at 01/04/2024 4:33 AM Narrative 01/04/2024 4:33 [...] patients who have questions please contactthe health district manager primary care sales that requested your imaging first. Electronically signed by: Huang Hernandez MD, [facility]([phone]), at 01/04/2024 4:33 AM Larisa George MD IMG DX ORDERABLES * Vancomycin Level, Random (01/04/2024 3:41 AM EDT) Vancomycin, Random 6.6 mg/L 2023 5:21 AM EDT [facility] Comment:This level is for de termination of the patient's vancomycin tlxk-jhyks-fnp-curve (AUC) value. Contact the inpatient pharmacy for interpretation. Blood VENOUS BLOOD SPECIMEN / Unknown IP Care Team Draw / Unknown 01/04/2024 3:41 AM EDT 01/04/2024 3:46 AM EDT Ramírez Gasca DO CHEMISTRY ORDERABL ES [facility] [place] [address] * (ABNORMAL) Sedimentation rate (01/04/2024 3:41 AM EDT) [facility] Sedimentation Rate Automated 109(H) 2 - 37 mm/hr 01/04/2024 5:51 AM EDT [facility] Blood VENOUS BLOOD SPECIMEN / Unknown IP Care Team Draw / Unknown 01/04/2024 3:41 AM EDT 01/04/2024 3:46 AM EDT Larisa George MD HEMATOLOGY ORDERABLE S [facility] [place] [address] * (ABNORMAL) CRP, acute inflammation (01/04/2024 3:41 AM EDT) C-Reactive Protein 33.9(H) <=4.9 mg/L 01/04/2024 4:41 AM EDT [facility] Blood VENOUS BLOOD SPECIMEN / Unknown IP Care Team Draw / Unknown 01/04/2024 3:41 AM EDT 01/04/2024 3:46 AM EDT Larisa George MD CHEMISTRY ORDERABLES [facility] [place] [address] * (ABNORMAL) Basic Metabolic Panel (01/04/2024 3:41 AM EDT) [facility] Glucose 211(H) 65 - 199 mg/dL 01/04/2024 4:26 AM EDT [facility] Comment:Glucose Concentratio n >=200 mg/dL [...] 3.5 - 5.0 mMol/L 01/04/2024 4:26 AM [facility] Chloride 94(L) 98 - 107 mMol/L 01/04/2024 4:26 AM [facility] Carbon Dioxide 24 22 - 31 mMol/L 01/04/2024 4:26 AM [facility] Anion Gap 16(H) 5 - 15 mMol/L 01/04/2024 4:26 AM [facility] Calcium 8.8 8.5 - 10.5 mg/dL 01/04/2024 4:26 AM [facility] Est Glomerular Filtration Rate - Male 6 mL/min/1. 73 m?? 01/04/2024 4:26 AM EDT [facility] Comment: This patient's estimated GFR [...] AM EDT Larisa George MD CHEMISTRY ORDERABLES Performing Organization Address City/State/[facility] Co de Phone Number [facility] [place] [address] * (ABNORMAL) CBC (with Diff) (01/04/2024 3:41 AM EDT) White Blood Cell 6.37 4.00 - 9.50 x10(3)/mc L 01/04/2024 4:04 AM [facility] Red Blood Cell 3.43(L) 4.58 - 5.54 x10(6)/mc L 01/04/2024 4:04 AM EDT [facility] Hemoglobin 10.5(L) 13.7 - 16.5 g/dL 01/04/2024 4:04 AM [facility] Hematocrit 33.2(L) 40.5 - 48.5 % 01/04/2024 4:04 AM [facility] Mean Cell Volume 96.8(H) 82.9 - 93.1 fL 01/04/2024 4:04 AM [facility] Mean Cell Hemoglobin 30.6 [...] Eos % 10.8 % 01/04/2024 4:04 AM [facility] Eos Absolute 0.69(H) 0.00 - 0.40 x10(3)/mc L 01/04/2024 4:04 AM EDT [facility] Basophil % 1.3 % 01/04/2024 4:04 AM EDT [facility] Baso Absolute 0.08 0.00 - 0.10 x10(3)/mc L 01/04/2024 4:04 AM EDT [facility] Immature Gran % 0.6 % 4:04 AM EDT [facility] Immature Gran Absolute 0.04 0.00 - 0.04 x10(3)/mc L 01/04/2024 4:04 AM EDT [facility] Blood VENOUS BLOOD SPECIMEN / Unknown IP Care Team Draw / Unknown 01/04/2024 3:41 AM EDT 01/04/2024 3:46 AM EDT Larisa George MD HEMATOLOGY ORDERABLE S Performing Organization Address City/State/[facility] Co de Phone Number [facility] [place] [address] * JOSÉ MIGUEL, legs, multiple levels (01/04/2024 3:19 AM EDT) VB Text Report Department: Vascular Surgery Lab Patient: [id number] (SINDI RUDOLPH) CPT: 39803 Referring Physician: LARISA GEORGE ?? Phone: Indications: [...] Diagnoses Not on filedocumented in this encounter Admitting Diagnoses Diagnosis Osteomyelitis [...] Given 01/08/2024 3:44 PM EDT 2 mg BUPivacaine (pf) (Marcaine) (2.5 mg/mL) 0.25% injection PRN, Starting on Tue01/04/24 at 1557, Until Tue01/04/24 at 1725, Intra-Operative (Intra-Procedure), Routine Given 01/04/2024 3:57 PM EDT 30 mLs 19- Surgical Site dextrose 10% infusion 250 mL, at 1,000 [...] Given 01/08/2024 9:00 PM EDT 300 mg glucagon (Glucagen) (1 mg/mL) injection solution 1 [...] tube = 37.5 grams.), Routine heparin (porcine) (5,000 units/1 mL) subcutaneous injection 5,000 Units 5,000 Units, Subcutaneous, EVERY 8 HOURS SCHEDULED, First dose on Tue01/04/24 at 0635, Until Discontinued, Routine Given 01/09/2024 3:30 PM EDT 5,000 Unit s Given 01/09/2024 6:38 AM EDT 5,000 Units [...] TIMES DAILY BEFORE MEALS, First dose on Barbara 01/05/24 at 0730, Until Discontinued, CORRECTION BOLUS [1-4 [...] Given 01/05/2024 6:04 PM EDT 1 Units lactulose (Chronulac) (0.67 gram/mL) oral liquid 20 g 20 g, Oral, DAILY PRN, Starting on Tue01/04/24 at 0618, Until 01/09/24 at 1957, Constipation, Give if no BM 24 hr [...] Routine lidocaine (Xylocaine) 1% (10 mg/mL) injection PRN, Starting on Tue01/04/24 at 1556, Until Tue01/04/24 at 1725, Intra-Operative (Intra-Procedure), Routine Given 01/04/2024 3:56 PM EDT 30 mLs 19- Surgical Site magnesium citrate oral liquid 296 mL 296 [...] at 0618, Until Tue01/09/24 at 1956, Nausea, 4 mg,Oral,EVERY [...] over 4 Hours, Warning Vesicant/Irritant Medication Per kennel operator labeling, do not administer or Y-site with lactated ringers., Indication for (Active or Suspected): Bone/Joint New Bag 01/09/2024 4:44 AM EDT 3.375 g 12.5 mL/hr New Bag 01/08/2024 5:51 PM EDT 3.375 [...] end of treatment, contact , Dialysis (Intra-Procedure) documented in this encounter Active and Recently [...] Santillan RN) 0844 (Given - Provider: Marely Satnillan RN) 0813 (Given - Provider: Solange Gonzalez [...] Marely Santillan RN)2122 (Given - Provider: Ladonna Cheung, PERNELL) 0844 (Given - Provider: Marely Santillan RN)1544 (Given - Provider: Marely Santillan RN)2100 (Given - Provider: Ladonna Cheung, PERNELL) 0813 (Given - Provider: Solange Gonzalez, PERNELL)1530 (Given - Provider: Solange Gonzalez RN) heparin [...] Marely Santillan RN)2122 (Given - Provider: Ladonna Cheung, PERNELL) 0610 (Given - Provider: Ladonna Cheung, PERNELL)1321 (Given - Provider: Marely Santillan RN)2100 (Given - Provider: Ladonna Cheung RN) 0638 (Given - Provider: Ladonna Cheung, PERNELL)1530 (Given - Provider: Solange Gonzalez RN) insulin [...] over 4 Hours, Warning Vesicant/Irritant Medication Per kennel operator labeling, do not administer or Y-site with lactated ringers., Indication for (Active or Suspected): Bone/Joint 0538 (New Bag - Provider: Rishi Smith RN)0845 (Paused - Provider: Marely Santillan RN)0846 (Stopped - Provider: Marely Santillan RN)1754 (New Bag - Provider: Marely Santillan RN)2154 (Stopped - Provider: Ladonna Cheung RN) 0443 (New Bag - Provider: Ladonna Cheung RN)0843 (Stopped - Provider: Marely Santillan RN)1751 (New Bag - Provider: Marely Santillan RN)2151 (Stopped - Provider: Ladonna Cheung RN) 0444 [...] Routine 0811 (Given - Provider: Marely Santillan RN)2122 (Given - Provider: Ladonna Cheung RN) 0844 (Given - Provider: Marely Santillan RN)2100 (Given - Provider: Ladonna Cheung RN) 0815 (Given - Provider: Solange Gonzalez RN) PRN Medication Order 01/07/2024 01/08/2024 01/09/2024 acetaminophen (Tylenol) tablet 650 mg 650 mg, Oral, EVERY 6 HOURS PRN, Starting on Tue01/04/24 at 0618, Until Tue01/09/24 at 1957, Pain, Fever, Administer for pain or temperature [...] Tue01/04/24 at 044, Until Tue01/09/24 at 1956, Low blood sugar, [...] Tue01/04/24 at 044, Until Tue01/09/24 at 1956, Low blood sugar, [...] 06, Until Tue01/09/24 at 1956, Constipation, Give an [...] Tue01/04/24 at 06, Until Tue01/09/24 at 1956, for discomfort with [...] Oral, NIGHTLY PRN, Starting on Tue01/04/24 at 0618, Until Tue01/09/24 at 1956, Sleep, Sleep, Routine ondansetron (pf) (Zofran) (2 mg/mL) injection 4 mg(Linked Group 4) 4 mg, Intravenous, EVERY 8 HOURS PRN, Starting on Tue01/04/24 at 0618, Until Tue01/09/24 at 1956, Nausea, 4 mg,Oral,EVERY [...] TIMES DAILY BEFORE MEALS, First dose on Barbara 01/05/24 at 0730, Until Discontinued, CORRECTION BOLUS [1-4 [...] Tue01/04/24 at 0441, Until Tue01/09/24 at 1956, Low blood sugar, [...] Tue01/04/24 at 0441, Until Tue01/09/24 at 1957, For BG 50-70 mg/dL: Oral treatment preferred: [...] Tue01/04/24 at 0441, Until Tue01/09/24 at 1956, Low blood sugar, [...] on Tue01/04/24 at 0618, Until Tue01/09/24 at 195, Nausea, 4 mg,Oral,EVERY 8 HOURS PRN, Nausea,Vomiting If multiple antiemetics are ordered, use ondansetron first. May repeat times one in 30 minutes if ineffective. documented in this encounter Care Teams Launch Engineer Relationship Specialty Start Date End Date Kimani Leger MD PCP - General Family Medicine 02/10/21 01/29/24 documented as of this encounter
--- OUTSIDE RECORDS SUMMARY | 2024-02-24 16:57 | XMS_ITS | Encounter Summary ---
[place] [address] Care Team Providers Care Survey And Mapping Technician Name Role Phone Kimani Leger MD Primary Care Provider [phone] Encounter Details Date Type Department Care Team (Late st Contact Info) Description 01/05/2024 Telephone [place] [id number] Thania Wesley MD [facility] [place] [address] Social History Tobacco Use Types Packs/Day Years Used Date Smoking Tobacco: Former Smokeless Tobacco: Never Comments:quit in his 20's Alcohol Use Standard Drinks/Week Comments No 0 (1 standard drink = 0.6 oz pur e alcohol) [facility] Utilities Answer Date Recorded In the past [...] time in the past 12 m [facility], were you homeless or living in a [facility] (including now)? No 01/06/2024 IPV Inpatient Questions [...] encounter Miscellaneous Notes * Telephone Encounter - Lexi Duffy RN - 01/05/2024 12:29 PM EDT CRITICAL/STAT RESULT NOTIFICATION TELEPHONE NOTE Date of call: 01/05/2024 Time of call: 12:29 PM Two patient identifiers: [x] Caller: Lab Reason for call: Critical results, calling for Lab results Test and results: Bone Culture on right 5th toe, originally didn't see anything on the gram stain, now seeing gram negative rods in the culture Read back: [x] Recent Results (from the past 168 hour(s)) JOSÉ MIGUEL, legs, multiple levels Collection Time: 01/04/24 3:19 AM Result Value Ref Range VB Text Report Department: Vascular Surgery Lab Patient: [id number] (SINDI RUDOLPH) CPT: 32960 Referring Physician: LARISA GEORGE Phone: Indications: Gangrene [...] by: GERMAN GONZALES on 2024-01-04 11:08:04 AM VB Text Report End of Report CBC (with Diff) Collection Time: 01/04/24 3:41 [...] AM Result Value Ref Range WORKSTATION ID [id number] MRI Foot wwo Contrast Right Collection Time: 01/04/24 5:40 AM Result Value Ref Range WORKSTATION ID [id number] POC, GLUCOSE Collection Time: 01/04/24 6:10 AM Result Value Ref Range Glucometer, POC 197 65 - 199 mg/dL POC, GLUCOSE Collection Time: 01/04/24 11:26 AM Result Value Ref Range Glucometer, POC 181 65 - 199 mg/dL Bone Culture Collection Time: 01/04/24 3:51 PM Specimen: Toe(s), Right Foot; Bone Result Value Ref Range Gram Stain Few neutrophils Gram Stain No microorganisms seen POC, GLUCOSE Collection Time: 01/04/24 4:57 PM Result Value Ref Range Glucometer, POC 137 65 - 199 mg/dL POC, GLUCOSE Collection Time: 01/04/24 5:49 PM Result Value Ref Range Glucometer, POC 155 65 - 199 mg/dL XR Foot Min 3 views Right (Generic) Collection Time: 01/04/24 7:42 PM Result Value Ref Range WORKSTATION ID [id number] POC, GLUCOSE Collection Time: 01/04/24 8:58 PM Result Value Ref Range Glucometer, POC 209 (H) 65 - 199 mg/dL CBC (with Diff) Collection Time: 01/05/24 8:18 AM Result Value Ref Range White Blood Cell 6.56 4.00 - 9.50 x10(3)/mcL Red Blood Cell 3.16 (L) 4.58 - 5.54 x10(6)/mcL Hemoglobin 9.8 (L) 13.7 - 16.5 g/dL Hematocrit 31.1 (L) 40.5 - 48.5 % Mean Cell Volume 98.4 (H) 82.9 - 93.1 fL Mean Cell Hemoglobin 31.0 27.5 - 32.1 pg Mean Cell Hemoglobin Concentration 31.5 (L) 32.0 - 35.7 g/dL Platelet 151 145 - 357 x10(3)/mcL Mean Platelet Volume 9.8 7.6 - 12.9 fL RDW Standard Deviation 60.6 (H) 36.0 - 45.0 fL RDW coefficient of variation 16.7 (H) 11.4 - 13.8 % NRBC% auto 0.0 % NRBC Absolute 0.00 0.00 - 0.00 x10(3)/mcL Neutrophil % 72.3 % Neutrophil Absolute (ANC) - Automated 4.75 1.70 - 6.10 x10(3)/mcL Lymph % 10.4 % Lymph Absolute 0.68 (L) 0.90 - 3.20 x10(3)/mcL Monocyte % 7.9 % Monocyte Absolute 0.52 0.30 - 0.90 x10(3)/mcL Eos % 8.1 % Eos Absolute 0.53 (H) 0.00 - 0.40 x10(3)/mcL Basophil % 0.8 % Baso Absolute 0.05 0.00 - 0.10 x10(3)/mcL Immature Gran % 0.5 % Immature Gran Absolute 0.03 0.00 - 0.04 x10(3)/mcL Basic Metabolic Panel Collection Time: 01/05/24 8:18 AM Result Value Ref Range Glucose 185 65 - 199 mg/dL Blood Urea Nitrogen 74 (H) 10 - 20 mg/dL Creatinine 11.45 (CRIT) 0.80 - 1.50 mg/dL Sodium 135 135 - 145 mMol/L Potassium 6.3 (CRIT) 3.5 - 5.0 mMol/L Chloride 95 (L) 98 - 107 mMol/L Carbon Dioxide 23 22 - 31 mMol/L Anion Gap 17 (H) 5 - 15 mMol/L Calcium 8.3 (L) 8.5 - 10.5 mg/dL Est Glomerular Filtration Rate - Male 5 mL/min/1.73 m?? Vancomycin Level, Random Collection Time: 01/05/24 8:18 AM Result Value Ref Range Vancomycin, Random 26.6 mg/L POC, GLUCOSE Collection Time: 01/05/24 11:43 AM Result Value Ref Range Glucometer, POC 127 65 - 199 mg/dL Name of Provider Notified: Dr. Jose Bryant who was apart of the surgical case. He indicated that the Medicine Team is aware and is getting in touch with ID. Provider acknowledgement: [x] Time of Notification: 1231 on 01/05/24 Mode of Notification: In person Plan of care: Provider will notify patient documented in this encounter Plan of Treatment Not on file documented as of this encounter Visit Diagnoses Not on filedocumented in this encounter Care Teams Survey And Mapping Technician Relationship Specialty Start Date End Date Kimani Leger MD PCP - General Family Medicine 02/10/21 01/29/24 documented as of this encounter
--- OUTSIDE RECORDS SUMMARY | 2024-02-24 16:57 | XMS_ITS | Encounter Summary ---
[place] [address] Care Team Providers Care Recycler Name Role Phone Kimani Leger MD Primary Care Provider [phone] Reason for Visit * Auth/Cert (Routine) Specialty Diagnoses / Procedures Referred By Puneet hallman Referred To Contact Diagnoses Osteomyelitis Gangrene Ramírez Gasca, [facility] [address] [facility] Referral ID Status Reason Start Date Expiration Date Visits Re quested Visits Authorized [id number] 1 1 Encounter Details Date Type Department Care Team (Late st Contact Info) Description 01/04/2024 3:23 PM EDT Anesthesia Event [place] [phone] Elena Veronica MD [facility] [place] [address] Enoch Peoples Anesthesia Record Procedure Summary Procedure Name Responsible Anesthesiologist Anesthesia Start Time Anesthesia Stop Time AMPUTATION, TRANSMETATARSAL TOE, ONE TOE (WRVU 6.64) (Right: Foot) Elena Veronica MD 01/04/24 1523 01/04/24 1629 Events Date Time Event Comment 01/04/2024 1520 1523 Start 1526 AN Verify 1526 An Start Data 1536 Anesthesia Ready 1543 Procedure Start Local by harley geon 1544 Skin Incision 1545 An Data Art Cuff going off while repositioning 1619 an stop data 1629 Recovery or ICU Handoff Halima ent care was transferred to the destination unit staff after review of the patient's medical history, current anesthetic/surgical status and plan, according to the Provider Handoff Checklist. 1629 Stop Meds Name Total propofoL 20 mg propofol INF 99.53 mg ketamine 10 mg/mL 50 mg ceFAZolin 2 g lactated ringers 100 mL * Agents Name O2 Air N2O Sevoflurane (et) O2 Auxiliary Flowmeter 1 * Blood No blood administrations on file. Lines, Drains, and Airways Type Details Placement Removal Hemodialysis AV Access Device - Single Lumen 10/20/18; 1343; fistula; forearm, left; hemodialysis 10/20/18 1343 by Chantale Jennings RN Wound 01/04/24; 0630; Y; Right; plantar; neuropathic wound/ulcer 01/04/24 0630 by Chantale Howard RN Incision 01/04/24; 1545; Righ t; fifth toe 01/04/24 1545 by Fozia Carter RN PIV 01/04/24; 0115; 20 gauge; cephalic vein (lateral side of arm), right; MACHINE BOOKKEEPER; removed per policy/procedure; 01/04/24; 1638 01/04/24 0115 by Mehnaz Franklin RN 01/04/24 1638 by Lynda Samuels RN Wound 01/04/24; 0621; Y; Right; fifth toe; neuropathic wound/ulcer; gangrenous appearing; 01/04/24; 1545 01/04/24 0621 by Chantale Howard RN 01/04/24 1545 by Fozia Carter RN PIV 01/04/24; 0833; yrkd-guo-fxaasi catheter system; 18 gauge; median cubital vein (antecubital fossa), right; Anatomical Landmarks; TWM; tolerated well, appears comfortable; 01/09/24; 1622 01/04/24 0833 by Sagar Camargo, EMT-A 01/09/24 162 by Solange Gonzalez RN documented in this encounter Social History Tobacco Use Types Packs/Day Years Used Date Smoking Tobacco: Former Smokeless Tobacco: Never Comments:quit in his 20's Alcohol Use Standard Drinks/Week Comments No 0 (1 standard drink = 0.6 oz pur e alcohol) [facility] Utilities Answer Date Recorded In the past 12 months has th e electric, gas, oil, or water Bloc threatened to shut off services in your [...] any time in the past 12 m [facility], were you homeless or living in [...] OR Notes * Anesthesia Postprocedure Evaluation - Elena Veronica MD - 01/04/2024 4:26 PM EDT Department of Anesthesiology Post-procedure Note Patient: Maurice Rudolph Procedure Summary Date: 01/04/24 Room / Location: [facility] OR [facility] MAIN OR Anesthesia Start: 1523 Anesthesia Stop: Procedures: AMPUTATION, TRANSMETATARSAL TOE, ONE TOE (WRVU 6.64) (Right: Foot) MODIFIER WOUND VAC Diagnosis: (Osteomyelitis R 5th toe) Surgeons: Thania Wesley MD Responsible Provider: Elena Veronica MD Anesthesia Type: MAC ASA Status: 3 All Anesthesia Providers: Anesthesiologist: Elena Veronica MD Student Nurse Security Patrol Officer: Enoch Peoples Vitals Value Taken Time BP Temp Pulse Resp SpO2 Pain Level Patient Location: PACU/[facility] Level of Consciousness: Conscious but Sleepy Pain Management: Satisfactory Analgesia PONV: None Cardiovascular Status: Hemodynamically Stable Respiratory Status: Stable Respiratory Status and Supplemental O2 (NC or FM) Postoperative Fluid Status: Intravascular EUvolemia Possible Anesthetic Complications: NONE apparent at time of evaluation Final Primary Anesthesia Type: MAC (The anesthetic type performed was the same as planned.) Comments: Elena Veronica MD, PhD * Anesthesia Preprocedure Evaluation - Elena Veronica MD - 01/04/2024 3:38 PM EDT Pre-Anesthesia Evaluation for: Maurice Rudolph a 63 y.o. male. Procedure(s): AMPUTATION, TRANSMETATARSAL TOE, ONE TOE (WRVU 6.64) MODIFIER WOUND VAC Patient Active Problem List Diagnosis Date Noted ??? *Osteomyelitis 01/04/2024 ??? ESRD on dialysis 06/11/2020 ??? Closed [...] Evaluations 06/17/2020 Kimani Larson MD [facility] INTERVENTIONL RAD ??? IR DIALYSIS ACCESS - AV FISTULA EVALUATIONS 11/04/2020 IR Dialysis Access - AV Fistula Evaluations 11/04/2020 Kimani Larson MD [facility] INTERVENTIONL RAD ??? IR DIALYSIS ACCESS - AV FISTULA EVALUATIONS 01/25/2022 IR Dialysis Access - AV Fistula Evaluations 01/25/2022 Roderick Castillo MD [facility] INTERVENTIONL RAD ??? PERIPHERAL IRIDOTOMY 04/06/2012 OD Swendris ??? PRO EXTRACAPSULAR CATARACT RMVL INSERTION IO LENS PROSTH CPLX WO ECP 07/18/2012 ??? PRO EXTRACAPSULAR CATARACT RMVL INSERTION IO LENS PROSTH W/O ECP 11/29/2012 CATARACT EXTRACTION, EXTRACAPSULAR, W/ LENS INSERTION performed by Erasmo Bajwa MD at [facility] OSC ? ? PRO REPAIR COMPLEX RETINA DETACH VITRECTOMY & MEMB PEEL 04/03/2012, 04/03/12 REPAIR COMPLEX RETINAL DETACHMENT, W/ VITRECTOMY, MEMBRANE PEELING performed by Matteo Diane MD at [facility] MAIN OR ? ? PRO REPAIR COMPLEX RETINA DETACH VITRECTOMY & MEMB PEEL 07/31/2012 REPAIR COMPLEX RETINAL DETACHMENT, W/ VITRECTOMY, MEMBRANE PEELING performed by Matteo Diane MD at [facility] MAIN OR ? ? PRO REPAIR COMPLEX RETINA DETACH VITRECTOMY & MEMB PEEL 01/08/2013 REPAIR COMPLEX RETINAL DETACHMENT, W/ VITRECTOMY, MEMBRANE PEELING performed by Matteo Diane MD at [facility] MAIN OR ??? PRO TX EXTENSIVE [...] History Tobacco Use ??? Smoking status: Former ??? Smokeless tobacco: Never ??? Tobacco comments: quit in his 20's Substance Use Topics ??? Alcohol use: No Social History Substance and Sexual Activity Drug Use No Allergies Allergen Reactions ??? Mirtazapine Other reaction(s): Other (see comments) Agitation, Nightmares. Medications: MAR and/or home medications have been reviewed. Physical Exam: Preprocedure Vitals Current as of 01/04/24 1523 BP: 133/67 Pulse: 69 Resp: 18 SpO2: 100 Temp: 37 ??C (98.6 ??F) Height: 162.6 cm (5' 4) (01/04/24) Weight: 99.8 kg (220 lb) (01/04/24) BMI: 37.76 IBW: 59.2 kg (130 lb 9.5 oz) Last edited 01/04/24 1300 by POT BUILDER Airway Assessment: Mallampati: III TM distance: >3 FB Neck ROM: full Cardiovascular Assessment: system normal Pulmonary Assessment: unlabored breathing Dental Assessment: (+) edentulous Misc Assessment: IV access: Peripheral line Last Filed Perioperative Cognitive Screening None Anesthesia Plan: ASA 3 MAC, with a(n) intravenous induction 63M with a h/o HTN, GERD, IDDM with retinopathy (recetn A1c >12), difficult intubation in past (MAC 3, Mil 3 --> suggest videolaryngoscopy, had questionable laryngospasm after extubation requiring reintubation in 04/12; last intubation with cmac successful on first attempt), here for amputation of right 5th toe. Plan for MAC. Region - Other Informed Consent: Anesthetic plan and risks discussed with patient. Use of blood products discussed with patient who consented to blood products. Plan discussed with HIGHWAY MAINTENANCE WORKER. Anesthesia Screening documented in this encounter Plan of Treatment Not on file documented as of this encounter Visit Diagnoses Not on filedocumented in this encounter Administered Medications Inactive Administered Medications - up to 3 most recent administrations Medication Order MAR Action Action Date Dose Rate Site ceFAZolin (Ancef) (100 mg/mL) injection solution Intravenous, PRN, Starting on Tue01/04/24 at 1534, Until Tue01/04/24 at 1629, Anesthesia Intra-op, Routine Given 01/04/2024 3:34 PM EDT 2 g ketamine (Ketalar) (10 mg/mL) IV bolus injection (Anesthesia) Intravenous, PRN, Starting on Tue01/04/24 at 1534, Until Tue01/04/24 at 1629, Anesthesia Intra-op Given 01/04/2024 3:35 PM EDT 30 mg Given 01/04/2024 3:34 PM EDT 20 mg lactated ringers infusion Intravenous, CONTINUOUS PRN, Starting on Tue01/04/24 at 1523, Until Tue01/04/24 at 1629, Anesthesia Intra-op New Bag 01/04/2024 3:23 PM EDT propofoL (Diprivan) (10 mg/mL) infusion Intravenous, CONTINUOUS PRN, Starting on Tue01/04/24 at 1534, Until Tue01/04/24 at 1629, Anesthesia Intra-op, Routine Rate/Dose Change 01/04/2024 3:52 PM EDT 30 mcg/kg/min 13.572 mL/hr Rate/Dose Change 01/04/2024 3:48 PM EDT 40 mcg/kg/min 18.0 96 mL/hr Rate/Dose Change 01/04/2024 3:45 PM EDT 50 mcg/kg/min 22.6 2 mL/hr propofoL (Diprivan) 10 mg/mL bolus injection (Anesthesia) Intravenous, PRN, Starting on Tue01/04/24 at 1534, Until Tue01/04/24 at 1629, Anesthesia Intra-op Given 01/04/2024 3:34 PM EDT 20 mg documented in this encounter Care Teams Recycler Relationship Specialty Start Date End Date Kimani Leger MD PCP - General Family Medicine 02/10/21 01/29/24 documented as of this encounter
--- OUTSIDE RECORDS SUMMARY | 2024-02-24 16:58 | XMS_ITS | Encounter Summary ---
[place] [address] Care Team Providers Care Crm Architect Name Role Phone Jarad Keller DNP Primary Care Provider [phone] Encounter Details Date Type Department Care Team (Late st Contact Info) Description 11/14/2020 [place] [address] Tracie Wild Social History Tobacco Use Types [...] on filedocumented in this encounter Care Teams Crm Architect Relationship Specialty Start Date End Date Jarad Keller DNP PCP - General Family Medicine 06/05/18 02/09/21 documented as of this encounter
--- OUTSIDE RECORDS SUMMARY | 2024-02-24 16:58 | XMS_ITS | Encounter Summary ---
Author Organization [facility] [place] [address] Care Team Providers Care Arson And Bomb Investigator Name Role Phone Kimani Leger MD Primary Care Provider [phone] Encounter Details Date Type Department Care Team (Late st Contact Info) Description 01/25/2022 7:30 AM EDT - 01/25/2022 9:30 [place] [address] Jose Light MD [facility] [place] [address] FISTULAGRAM Social History Tobacco Use Types Packs/Day [...] RN - 01/25/2022 10:02 AM EDT [facility] Vascular and Interventional Radiology Discharge Instructions after [...] is during regular office hours, please call [phone]. If it is after regular office hours, or on weekends or holidays, please call [phone] and ask to speak to the Burner Operator compensation agent for Interventional Radiology. You have received medication [...] mouth daily. 180 tablet 3 05/20/2020 02/25/2023 sevelamer carbonate (Renvela) 800 mg Tablet Take [...] EDT) Potassium 4.2 3.5 - 5.0 mmol/L [facility] [...] Lab Johanna Green APRN CHEMISTRY ORDERABL ES [facility] [place] [address] * POCT Glucose (01/25/2022 6:39 AM EDT) Glucose, POC 178 65 - 199 mg/dL [facility] Comment: Supplemental ranges: <140 mg/dL before meals <180 mg/dL all other times of the day Blood 01/25/2022 6:39 AM EDT 01/25/2022 6:39 AM EDT Jose Light MD POINT OF CARE TEST O RDERABLES [facility] [address] [place] [place] [address] documented in this encounter Visit Diagnoses Not [...] Mimi Cole RN) Continuous Medication Order 01/23/2022 01/24/202201/2501/25/2022 sodium chloride 0.9% infusion (CANCELED) 1,000 mL, at 100 mL/hr, Intravenous, CONTINUOUS, Starting on Tue01/25/22 at 0730, Until Tue01/25/22 at 1219, Day of Surgery (Day of Procedure) 07 ([facility] ider: Mimi Cole RN) documented in this encounter Care Teams Arson And Bomb Investigator Relationship Specialty Start Date End Date Kimani Leger MD PCP - General Family Medicine 02/10/21 01/29/24 documented as of this encounter
--- OUTSIDE RECORDS SUMMARY | 2024-02-24 16:58 | XMS_ITS | Encounter Summary ---
Author Organization [facility] [place] [address] Care Team Providers Care Tapper Helper Name Role Phone Kimani Leger MD Primary Care Provider [phone] Encounter Details Date Type Department Care Team (Latest Contact Info) Description 01/25/2022 6:10 AM EDT - 01/25/2022 12:21 PM EDT Hospital Encounter [place] [address] Jose Light MD [facility] [place] [address] Discharge Disposition: Home Social History Tobacco Use [...] Khan RN - 01/25/2022 10:02 AM EDT [facility] Vascular and Interventional Radiology Discharge Instructions after [...] is during regular office hours, please call [phone]. If it is after regular office hours, or on weekends or holidays, please call [phone] and ask to speak to the Biological Technical Officer supervisor show operations for Interventional Radiology. You have received medication [...] time. Pt discharged home via ride service, [facility]. Linda GIMENEZ documented in this [...] EDT) Potassium 4.2 3.5 - 5.0 mmol/L [facility] [...] Lab Johanna Green APRN CHEMISTRY ORDERABL ES [facility] [place] [address] * POCT Glucose (01/25/2022 6:39 AM EDT) Glucose, POC 178 65 - 199 mg/dL [facility] Comment: Supplemental ranges: <140 mg/dL before meals <180 mg/dL all other times of the day Blood 01/25/2022 6:39 AM EDT 01/25/2022 6:39 AM EDT Jose Light MD POINT OF CARE TEST O RDERABLES [facility] [place] [address] documented in this encounter Visit Diagnoses Not [...] of Surgery (Day of Procedure) 0725 ([facility] ider: Mimi Cole RN) documented in this encounter Care Teams Tapper Helper Relationship Specialty Start Date End Date Kimani Leger MD PCP - General Family Medicine 02/10/21 01/29/24 documented as of this encounter
--- OUTSIDE RECORDS SUMMARY | 2024-02-24 16:58 | XMS_ITS | Encounter Summary ---
[place] [address] Care Team Providers Care Button Decorating Machine Operator Name Role Phone Jarad Keller DANIKA Primary Care Provider [phone] Reason for Referral * Diagnostic Test (Routine) - Closed Specialty Diagnoses / Procedures Referred By Puneet hallman Referred To Contact Radiology Diagnoses ESRD (end stage renal disease) Procedures IR Dialysis Access - AV Fistula Evaluations Too Morgan MD [facility] [place] [address] [facility] [place] [address] Referral ID Status Reason Start Date Expiration Date V isits Requested Visits Authorized [id number] Closed Specialty Service Requested 10/21/2020 04/22/2022 1 1 Encounter Details Date Type Department Care Team ([facility] st Contact Info) Description 10/21/2020 Orders Only [place] [address] Too Morgan MD [facility] [place] [address] ESRD (end stage renal disease) Social History [...] technique under ultrasound guidance and a 4 Ivorian sheath placed facing peripherally. ??4 Ivorian sheath exchanged over guidewire for a 6 Ivorian sheath. ??Guidewire and angled catheter were placed [...] to AV anastomosis, resolved with 7 mm TOWER EXCAVATOR OPERATOR. 3. Coil from prior intervention at outside hospital in the forearm, unchanged from 06/17/20. 4. AV anastomosis not stenotic. Plan/Disposition: 1) To Same Day for recovery, may discharge to home when meets criteria. 2) Left arm dialysis fistula ready for use. Parking Lot Manager(s): Resident/Fellow: Narinder Rivera Attending: Dr. Larson. ??I, Dr. Larson was present throughout this procedure. 11/04/2020 Too Morgan MD IM IR ORDERABLES documented in this encounter Visit Diagnoses Diagnosis ESRD (end stage renal disease) End stage renal disease ESRD (end stage renal disease) End stage renal disease documented in this encounter Care Teams Button Decorating Machine Operator Relationship Specialty Start Date End Date Jarad Keller DNP PCP - General Family Medicine 06/05/18 02/09/21 documented as of this encounter
--- OUTSIDE RECORDS SUMMARY | 2024-02-24 16:58 | XMS_ITS | Encounter Summary ---
Author Organization [facility] [place] [address] Care Team Providers Care Operator And Truck Driver Name Role Phone Kimani Leger MD Primary Care Provider [phone] Encounter Details Date Type Department Care Team (Late st Contact Info) Description 12/28/2023 6:40 PM EDT Ancillary Procedure Radiology Library at [facility] [place] [id number] Bradford Momin MD [facility] [place] [address] Social History Tobacco Use Types Packs/Day Years [...] DX Foot (12/28/2023 6:35 PM EDT) Narrative TROY - 12/28/2023 6:35 PM EDT This exam is auto-finalizing. It's purpose is for storage only. Bradford Momin MD IMG FILM LIBRARY ORD ERABLES Performing Organization Address City/State/[facility] Co de Phone Number [place], [place] documented in this encounter Visit Diagnoses Not on filedocumented in this encounter Care Teams Operator And Truck Driver Relationship Specialty Start Date End Date Kimani Leger MD PCP - General Family Medicine 02/10/21 01/29/24 documented as of this encounter
--- OUTSIDE RECORDS SUMMARY | 2024-02-24 16:58 | XMS_ITS | Encounter Summary ---
Author Organization [facility] [place] [address] Care Team Providers Care Clinical Laboratory Manager Name Role Phone Kimani Leger MD Primary Care Provider [phone] Encounter Details Date Type Department Care Team (Late st Contact Info) Description 04/20/2023 Telephone [place] [id number] Too Morgan MD [facility] [place] [address] Social History Tobacco Use Types Packs/Day Years [...] filedocumented in this encounter Care Teams Clinical Laboratory Manager Relationship Specialty Start Date End Date Kimani Leger MD PCP - General Family Medicine 02/10/21 01/29/24 documented as of this encounter
--- OUTSIDE RECORDS SUMMARY | 2024-02-24 16:58 | XMS_ITS | Encounter Summary ---
[place] [address] Care Team Providers Care Sanitizer Name Role Phone Jarad Keller DNAIKA Primary Care Provider [phone] Encounter Details Date Type Department Care Team (Late st Contact Info) Description 11/27/2020 Telephone [place] [address] Sherie Mccallum, [place] [facility] [place] [address] Social History Tobacco Use Types Packs/Day Years [...] on filedocumented in this encounter Care Teams Sanitizer Relationship Specialty Start Date End Date Jarad Keller DNP PCP - General Family Medicine 06/05/18 02/09/21 documented as of this encounter
--- OUTSIDE RECORDS SUMMARY | 2024-02-24 16:58 | XMS_ITS | Encounter Summary ---
Author Organization [facility] [place] [address] Care Team Providers Care Database Technician Name Role Phone Jarad Keller DNP Primary Care Provider [phone] Encounter Details Date Type Department Care Team (Latest Contact Info) Description 11/04/2020 1:16 PM EDT - 11/04/2020 5:15 PM EDT Hospital En[place] [phone] Ceasar Gonzalez MD [facility] [place] [address] Discharge Disposition: Home Social History Tobacco Use [...] Morrow RN - 11/04/2020 4:35 PM EDT [facility] Vascular and Interventional Radiology Discharge Instructions after [...] is during regular office hours, please call [phone]. If it is after regular office hours, or on weekends or holidays, please call [phone] and ask to speak to the Pet Care Assistant double end tenon operator for Interventional Radiology. You have received medication [...] 3 times daily (with meals). 08/04/2019 01/13/2024 loratadine (CLARITIN) 10 mg Tablet Take 10 [...] * POCT Glucose (11/04/2020 1:59 PM EDT) [facility] Signature Glucose, POC 172 65 - 199 mg/dL [facility] Comment: Supplemental ranges: <140 mg/dL before meals <180 mg/dL all other times of the day Blood 11/04/2020 1:59 PM EDT 11/04/2020 1:59 PM EDT Ceasar Gonzalez MD POINT OF CARE TEST O RDERABLES Performing Organization Address [facility] Co de Phone Number [facility] [place] [address] * Potassium (11/04/2020 1:34 PM EDT) Potassium [...] Vanessa MD CHEMISTRY ORDERABLES Performing Organization Address [facility] Co de Phone Number [facility] [place] [address] documented in this encounter Visit Diagnoses Not on filedocumented in this encounter Active and Recently Administered Medications Care Teams Database Technician Relationship Specialty Start Date End Date Jarad Keller DNP PCP - General Family Medicine 06/05/18 02/09/21 documented as of this encounter
--- OUTSIDE RECORDS SUMMARY | 2024-02-24 16:58 | XMS_ITS | Encounter Summary ---
[place] [address] Care Team Providers Care Debug Technician Name Role Phone Jarad Keller DANIKA Primary Care Provider [phone] Reason for Referral * Diagnostic Test (Routine) - Closed Specialty Diagnoses / Procedures Referred By Puneet hallman Referred To Contact Radiology Diagnoses ESRD (end stage renal disease) Procedures IR Dialysis Access - AV Fistula Evaluations Too Morgan MD [facility] [place] [address] [facility] [place] [address] Referral ID Status Reason Start Date Expiration Date V isits Requested Visits Authorized [id number] Closed Specialty Service Requested 06/03/2020 12/01/2021 1 1 Encounter Details Date Type Department Care Team (Late st Contact Info) Description 06/03/2020 Orders Only Neph[place] [address] Too Morgan MD [facility] [place] [address] ESRD (end stage renal disease) Social History [...] experiencing decreased flows. ??No prior interventions by [facility] IR. 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 Remainder of patient's medical and surgical history, allergies, medications, and social/family history obtained below as previously outlined in patient's medical record. Per patient he fistula created in [place] about 5 years ago. He has undergone one prior fistulagram in [place] with intervention. Technique: After obtaining informed consent, [...] used to dilate the cephalic stenosis. ??Post DIRECTOR OF CURRICULUM AND INSTRUCTION radial artery arteriography showed resolution of the [...] stenosis AV anastomosis resolved with 5 mm DIRECTOR OF CURRICULUM AND INSTRUCTION 3. ??Moderate/severe 2 cm juxta anastomotic cephalic vein stenosis resolved with 6 mm DIRECTOR OF CURRICULUM AND INSTRUCTION. 4. ??Outflow from elbow centrally via both cephalic and basilic systems without central stenoses. 5. ??Coil from prior intervention at outside hospital in the forearm approximately 4 cm central to the AV anastomosis. ??Presumably placed in a side branch vein. Plan/Disposition: 1) To Same day recovery room, may discharge to home when meets criteria. 2) left upper extremity dialysis fistula ready for use. Manager Union(s): Resident/Fellow: Narinder Rivera Attending: Dr. Larson. ??I, [...] disease documented in this encounter Care Teams Debug Technician Relationship Specialty Start Date End Date Jarad Keller DNP PCP - General Family Medicine 06/05/18 02/09/21 documented as of this encounter
--- OUTSIDE RECORDS SUMMARY | 2024-02-24 16:58 | XMS_ITS | Encounter Summary ---
[place] [address] Care Team Providers Care Gauger Chief Name Role Phone Jarad Keller DNP Primary Care Provider [phone] Encounter Details Date Type Department Care Team (Late st Contact Info) Description 01/29/2021 Telephone [place] [address] Cherelle Colvin RN Social History Tobacco Use [...] AM EDT I spoke [place] [facility]. They confirmed Maurice's mailing address as [...] on filedocumented in this encounter Care Teams Gauger Chief Relationship Specialty Start Date End Date Jarad Keller DNP PCP - General Family Medicine 06/05/18 02/09/21 documented as of this encounter
--- OUTSIDE RECORDS SUMMARY | 2024-02-24 16:58 | XMS_ITS | Encounter Summary ---
[place] [address] Care Team Providers Care Stock Buyer Name Role Phone Kimani Leger MD Primary Care Provider [phone] Encounter Details Date Type Department Care Team (Late st Contact Info) Description 01/17/2023 [place] [phone] Too Morgan MD [facility] [place] [address] Social History Tobacco Use Types Packs/Day Years [...] on filedocumented in this encounter Care Teams Stock Buyer Relationship Specialty Start Date End Date Kimani Leger MD PCP - General Family Medicine 02/10/21 01/29/24 documented as of this encounter
--- OUTSIDE RECORDS SUMMARY | 2024-02-24 16:58 | XMS_ITS | Encounter Summary ---
[place] [address] Care Team Providers Care Developmental Behavioral Physician Name Role Phone Jarad Keller DNP Primary Care Provider [phone] Encounter Details Date Type Department Care Team (Late st Contact Info) Description 05/20/2020 Orders Only Nephrology [place] [address] Nettie Davis, TREASURY ASSOCIATE [facility] [place] [address] Social History Tobacco Use Types Packs/Day Years [...] on filedocumented in this encounter Care Teams Developmental Behavioral Physician Relationship Specialty Start Date End Date Jarad Keller DNP PCP - General Family Medicine 06/05/18 02/09/21 documented as of this encounter
--- OUTSIDE RECORDS SUMMARY | 2024-02-24 16:58 | XMS_ITS | Encounter Summary ---
Author Organization [facility] [place] [address] Care Team Providers Care Almond Cutting Machine Tender Name Role Phone Jarad Keller DNP Primary Care Provider [phone] Encounter Details Date Type Department Care Team (Late st Contact Info) Description 11/04/2020 2:38 [place] [address] Wendie, Too Mcfarlane MD [facility] [place] [address] Herman Turner MD [facility] [place] [address] Anesthesia Record Procedure Summary Procedure Name Responsible [...] 1426; metacarpal vein (top of hand), right; [id number] catheter system; Anatomical Landmarks; 22 gauge; Laura [...] Procedure Summary Date: 11/04/20 Room / Location: [facility] INTERVENTIONAL RADIOLOGY / [facility] Anesthesia Start: 1438 Anesthesia Stop: 1613 Procedure: FISTULAGRAM (Left ) Diagnosis: (ESRD (end stage renal disease)) Surgeons: Ceasar Gonzalez MD Responsible Provider: Too Pressley MD Anesthesia Type: MAC ASA Status: 3 All Anesthesia Providers: Anesthesiologist: Too Pressley MD ENVIRONMENTAL COMPLIANCE ENGINEER: Arnel Rodriguez CRNA Student Nurse Ultrasound Technol: Michelle Tee Vitals Value Taken Time BP 165/84 11/04/20 1615 Temp 36.2 ??C (97.2 ??F) 11/04/20 1605 Pulse Resp 16 11/04/20 1615 SpO2 93 % 11/04/20 1615 Pain Level 0 11/04/20 1615 Patient Location: PACU/[facility] Level of Consciousness: Awake and Alert [...] AV Fistula Evaluations 06/17/2020 Kimani Larson MD [facility] INTERVENTIONL RAD ??? PERIPHERAL IRIDOTOMY 04/06/2012 OD Swendris ??? PRO EXTRACAPSULAR CATARACT RMVL INSERTION IO LENS PROSTH CPLX WO ECP 07/18/2012 ??? PRO EXTRACAPSULAR CATARACT RMVL INSERTION IO LENS PROSTH W/O ECP 11/29/2012 CATARACT EXTRACTION, EXTRACAPSULAR, W/ LENS INSERTION performed by Erasmo Bajwa MD at [facility] OSC ? ? PRO REPAIR COMPLEX RETINA DETACH VITRECTOMY & MEMB PEEL 04/03/2012, 04/03/12 REPAIR COMPLEX RETINAL DETACHMENT, W/ VITRECTOMY, MEMBRANE PEELING performed by Matteo Diane MD at [facility] MAIN OR ? ? PRO REPAIR COMPLEX RETINA DETACH VITRECTOMY & MEMB PEEL 07/31/2012 REPAIR COMPLEX RETINAL DETACHMENT, W/ VITRECTOMY, MEMBRANE PEELING performed by Matteo Diane MD at [facility] MAIN OR ? ? PRO REPAIR COMPLEX RETINA DETACH VITRECTOMY & MEMB PEEL 01/08/2013 REPAIR COMPLEX RETINAL DETACHMENT, W/ VITRECTOMY, MEMBRANE PEELING performed by Matteo Diane MD at [facility] MAIN OR ??? PRO TX [...] I will be working with either a ENVIRONMENTAL COMPLIANCE ENGINEER or resident physician. A resident physician means a physician who is in training to be an anesthesiologist. The patient acknowledged these risks and would like to proceed with the anesthesia plan. Sedation and local anesthesia by proceduralist. GA back. Region - Other Informed Consent: Anesthetic plan and risks discussed with patient. Plan discussed with ENVIRONMENTAL COMPLIANCE ENGINEER. Anesthesia Screening documented in this encounter Plan [...] EDT documented in this encounter Care Teams Almond Cutting Machine Tender Relationship Specialty Start Date End Date Jarad Keller DNP PCP - General Family Medicine 06/05/18 02/09/21 documented as of this encounter
--- OUTSIDE RECORDS SUMMARY | 2024-02-24 16:58 | XMS_ITS | Encounter Summary ---
[place] [address] Care Team Providers Care Business Applications Manager Name Role Phone Kimani Leger MD Primary Care Provider [phone] Encounter Details Date Type Department Care Team (Late st Contact Info) Description 01/25/2022 7:46 AM EDT [place] [address] Merlin Joyce MD [facility] [place] [address] Anesthesia Record Procedure Summary Procedure Name Responsible [...] cephalic vein (lateral side of arm), right; [id number] catheter system; 20 gauge, 1 in length; [...] Procedure Summary Date: 01/25/22 Room / Location: [facility] INTERVENTIONAL RADIOLOGY / [facility] Anesthesia Start: 745 Anesthesia Stop: 928 Procedure: FISTULAGRAM (N/A ) Diagnosis: (ESRD) Surgeons: Jose Light MD Responsible Provider: Merlin Joyce MD Anesthesia Type: MAC ASA Status: 3 All Anesthesia Providers: Anesthesiologist: Merlin Joyce MD SECURITY SYSTEMS SPECIALIST: Олег Robles CRNA Vitals Value Taken Time BP 118/69 01/25/22 1045 Temp 36 ??C (96.8 ??F) 01/25/22 1115 Pulse Resp 16 01/25/22 1045 SpO2 97 % 01/25/22 1100 Pain Level 0 01/25/22 0930 Patient Location: PACU/[facility] Level of Consciousness: Awake and Alert Pain [...] AV Fistula Evaluations 06/17/2020 Kimani Larson MD [facility] INTERVENTIONL RAD ??? IR DIALYSIS ACCESS - AV FISTULA EVALUATIONS 11/04/2020 IR Dialysis Access - AV Fistula Evaluations 11/04/2020 Kimani Larson MD [facility] INTERVENTIONL RAD ??? PERIPHERAL IRIDOTOMY 04/06/2012 OD Swendris ??? PRO EXTRACAPSULAR CATARACT RMVL INSERTION IO LENS PROSTH CPLX WO ECP 07/18/2012 ??? PRO EXTRACAPSULAR CATARACT RMVL INSERTION IO LENS PROSTH W/O ECP 11/29/2012 CATARACT EXTRACTION, EXTRACAPSULAR, W/ LENS INSERTION performed by Erasmo Bajwa MD at [facility] OSC ? ? PRO REPAIR COMPLEX RETINA DETACH VITRECTOMY & MEMB PEEL 04/03/2012, 04/03/12 REPAIR COMPLEX RETINAL DETACHMENT, W/ VITRECTOMY, MEMBRANE PEELING performed by Matteo Diane MD at [facility] MAIN OR ? ? PRO REPAIR COMPLEX RETINA DETACH VITRECTOMY & MEMB PEEL 07/31/2012 REPAIR COMPLEX RETINAL DETACHMENT, W/ VITRECTOMY, MEMBRANE PEELING performed by Matteo Diane MD at [facility] MAIN OR ? ? PRO REPAIR COMPLEX RETINA DETACH VITRECTOMY & MEMB PEEL 01/08/2013 REPAIR COMPLEX RETINAL DETACHMENT, W/ VITRECTOMY, MEMBRANE PEELING performed by Matteo Diane MD at [facility] MAIN OR ??? PRO TX EXTENSIVE RETINOPATHY, [...] on Tue01/25/22 at 0757, Until Tue01/25/22 at 923, Anesthesia Intra-op Given 01/25/2022 8:18 AM EDT 30 mg Given 01/25/2022 7:57 AM EDT 30 mg documented in this encounter Care Teams Business Applications Manager Relationship Specialty Start Date End Date Kimani Leger MD PCP - General Family Medicine 02/10/21 01/29/24 documented as of this encounter
--- OUTSIDE RECORDS SUMMARY | 2024-02-24 16:58 | XMS_ITS | Encounter Summary ---
Author Organization [facility] [place] [address] Care Team Providers Care Regional Business Manager Name Role Phone Jarad Keller DNP Primary Care Provider [phone] Encounter Details Date Type Department Care Team (Late st Contact Info) Description 06/17/2020 2:30 PM EST - 06/17/2020 4:30 [place] [phone] Ceasar Gonzalez MD [facility] [place] [address] FISTULAGRAM Social History Tobacco Use Types Packs/Day [...] Glucose, POC 238(H) 65 - 199 mg/dL [facility] Comment: Supplemental ranges: <140 mg/dL before meals <180 mg/dL all other times of the day Blood specimen (specimen) 06/17/2020 4:34 PM EST 06/17/2020 4:34 PM EST Ceasar Gonzalez MD POINT OF CARE TEST O ANTONETTE Performing Organization Address City/[facility]/ZIP Co de Phone Number [facility] [place] [address] * (ABNORMAL) POCT Glucose (06/17/2020 2:04 PM EST) [facility] Glucose, POC 243(H) 65 - 199 mg/dL [facility] Comment: Supplemental ranges: <140 mg/dL before meals <180 mg/dL all other times of the day Blood specimen (specimen) 06/17/2020 2:04 PM EST 06/17/2020 2:04 PM EST Ceasar Gonzalez MD POINT OF CARE TEST O ANTONETTE Performing Organization Address [facility] Co de Phone Number [facility] [place] [address] * (ABNORMAL) Hemogram (06/17/2020 1:48 PM EST) [facility] White Blood Cell 7.0 4.0 - 9.5 x10(3)/mc L [facility] Red Blood Cell 4.09(L) 4.58 - 5.54 x10(6)/mc L [facility] Hemoglobin 12.9(L) 13.7 - 16.5 gm/dL [facility] Hematocrit 37.3(L) 40.5 - 48.5 % [facility] Mean Cell Volume 91.2 82.9 - 93.1 fL [facility] Mean Cell Hemoglobin 31.5 27.5 - 32.1 pg [facility] Mean Cell Hemoglobin Concentration 34.6 32.0 - 35.7 gm/dL [facility] Platelet 142(L) 145 - 357 x10(3)/mc L [facility] RDW Standard Deviation 43.9 36.0 - 45.0 fL [facility] RDW coefficient of variation 13.1 11.4 - 13.8 % [facility] Mean Platelet Volume 10.0 7.6 - 12.9 fL [facility] NRBC% auto 0.0 % [facility] NRBC Absolute 0.000 0.000 - 0.000 x10(3)/mc L [facility] Blood specimen (specimen) 06/17/2020 1:48 PM EST 06/17/2020 2:00 PM EST Narrative Resulting Agency Comment Spec In Lab Too Morgan MD HEMATOLOGY ORDERABL ES [facility] [place] [address] * (ABNORMAL) Basic Metabolic Panel (non-fasting) (06/17/2020 1:48 PM EST) Glucose 258(H) 65 - 199 mg/dL [facility] Comment:Diabetes: >=200 mg/d L plus symptoms Blood Urea Nitrogen 15 10 - 20 mg/dL [facility] Creatinine 2.44(H) 0.80 - 1.50 mg/dL [facility] Sodium 137 135 - 145 mmol/L [facility] Potassium 4.0 3.5 - 5.0 mmol/L [facility] Comment: Please note: ??Patients with WBC >100,000 may have falsely elevated Potassium levels. ??For accurate Potassium quantification in these patients send serum separator tube (gold top) for subsequent determinations. ??Contact the Clinical Chemistry Laboratory if there are any questions. Chloride 93(L) 98 - 107 mmol/L [facility] Carbon Dioxide 35(H) 22 - 31 mmol/L [facility] Anion Gap 9 5 - 15 mmol/L [facility] Calcium 9.6 8.5 - 10.5 mg/dL [facility] Est Glomerular Filtration Rate 28(L) >=60 mL/min/1. 73 m?? [facility] Comment: This patient? s estimated [...] Lab Too Morgan MD [place] [address] documented in this encounter Visit Diagnoses Not [...] Routine documented in this encounter Care Teams Regional Business Manager Relationship Specialty Start Date End Date Jarad Keller DNP PCP - General Family Medicine 06/05/18 02/09/21 documented as of this encounter
--- OUTSIDE RECORDS SUMMARY | 2024-02-24 16:58 | XMS_ITS | Encounter Summary ---
Author Organization [facility] [place] [address] Care Team Providers Care Railway Yard Assistant Name Role Phone Kimani Leger MD Primary Care Provider [phone] Encounter Details Date Type Department Care Team (Late st Contact Info) Description 08/12/2022 6:20 PM EDT Ancillary Procedure Radiology Library at [facility] [place] [address] [place] [address] Social History Tobacco Use Types Packs/Day Years [...] DX Chest (08/12/2022 6:15 PM EDT) Narrative [facility]OY - 08/12/2022 6:15 PM EDT This exam is auto-finalizing. It's purpose is for storage only. Emerald Hinton MD IMG FILM LIBRARY ORD ERABLES Performing Organization Address City/State/[facility] Co de Phone Number [place], [place] documented in this encounter Visit Diagnoses Not on filedocumented in this encounter Care Teams Railway Yard Assistant Relationship Specialty Start Date End Date Kimani Leger MD PCP - General Family Medicine 02/10/21 01/29/24 documented as of this encounter
--- OUTSIDE RECORDS SUMMARY | 2024-02-24 16:58 | XMS_ITS | Encounter Summary ---
Author [place] [address] Care Team Providers Care Poll Clerk Name Role Phone Kimani Leger MD Primary Care Provider [phone] Encounter Details Date Type Department Care Team (Late st Contact Info) Description 09/07/2023 Notes Only Ne[place] [address] Nettie Davis APRN [facility] [place] [address] Social History Tobacco Use Types Packs/Day Years [...] time. Nettie Davis APRN Nephrology/Hypertension Pager # [phone] documented in this encounter Plan of Treatment Not on file documented as of this encounter Visit Diagnoses Not on filedocumented in this encounter Care Teams Poll Clerk Relationship Specialty Start Date End Date Kimani Leger MD PCP - General Family Medicine 02/10/21 01/29/24 documented as of this encounter
--- OUTSIDE RECORDS SUMMARY | 2024-02-24 16:58 | XMS_ITS | Encounter Summary ---
Author Organization [facility] [place] [address] Care Team Providers Care Blackener Name Role Phone Jarad Keller DNP Primary Care Provider [phone] Encounter Details Date Type Department Care Team (Late st Contact Info) Description 11/04/2020 2:30 PM EDT - 11/04/2020 4:30 [place] [phone] Ceasar Gonzalez MD [facility] [place] [address] FISTULAGRAM Social History Tobacco Use Types Packs/Day [...] Morrow RN - 11/04/2020 4:35 PM EDT [facility] Vascular and Interventional Radiology Discharge [...] is during regular office hours, please call [phone]. If it is after regular office hours, or on weekends or holidays, please call [phone] and ask to speak to the Pulmonology Technician attraction worker for Interventional Radiology. You have received medication [...] * POCT Glucose (11/04/2020 1:59 PM EDT) [facility] Glucose, POC 172 65 - 199 mg/dL [facility] Comment: Supplemental ranges: <140 mg/dL before meals <180 mg/dL all other times of the day Blood 11/04/2020 1:59 PM EDT 11/04/2020 1:59 PM EDT Ceasar Gonzalez MD POINT OF CARE TEST O RDERABLES Performing Organization Address [facility] Co de Phone Number [facility] [place] [address] * Potassium (11/04/2020 1:34 PM EDT) Potassium [...] Vanessa MD CHEMISTRY ORDERABLES Performing Organization Address [facility] Co de Phone Number [facility] [place] [address] documented in this encounter Visit Diagnoses Not on filedocumented in this encounter Active and Recently Administered Medications Care Teams Blackener Relationship Specialty Start Date End Date Jarad Keller DNP PCP - General Family Medicine 06/05/18 02/09/21 documented as of this encounter
--- OUTSIDE RECORDS SUMMARY | 2024-02-24 16:58 | XMS_ITS | Encounter Summary ---
[place] [address] Care Team Providers Care Registered Dietitian Name Role Phone Jarad Keller DANIKA Primary Care Provider [phone] Reason for Referral * Consultation (Routine) - Closed Specialty Diagnoses / Procedures Referred By Puneet hallman Referred To Contact Neurology Diagnoses Diego, Too Wood MD [facility] [place] [address] [facility] [address] [place] [phone] Referral ID Status Reason Start Date Expiration Date Visits Re quested Visits Authorized [id number] Closed 09/04/2020 09/04/2021 12 12 Encounter Details Date Type Department Care Team (Late st Contact Info) Description 09/04/2020 Orders Only Nephrology [place] [address] Too Morgan MD [facility] [place] [address] Fall, sequela Social History Tobacco Use Types [...] sequela documented in this encounter Care Teams Registered Dietitian Relationship Specialty Start Date End Date Jarad Keller DNP PCP - General Family Medicine 06/05/18 02/09/21 documented as of this encounter
--- OUTSIDE RECORDS SUMMARY | 2024-02-24 16:58 | XMS_ITS | Encounter Summary ---
Author Organization [facility] [place] [place] [address] Care Team Providers Care Outside Contractor Sales Name Role Phone Kimani Leger MD Primary Care Provider [phone] Reason for Visit * Reason Comments Medication Refill Encounter Details Date Type Department Care Team (Late st Contact Info) Description 06/08/2021 Refill Nephrology [place] [address] Too Morgan MD [facility] [place] [address] Social History Tobacco Use Types Packs/Day Years [...] on filedocumented in this encounter Care Teams Outside Contractor Sales Relationship Specialty Start Date End Date Kimani Leger MD PCP - General Family Medicine 02/10/21 01/29/24 documented as of this encounter
--- OUTSIDE RECORDS SUMMARY | 2024-02-24 16:58 | XMS_ITS | Encounter Summary ---
Author Organization [facility] [place] [address] Care Team Providers Care Hand Icer Name Role Phone Jarad Keller DNP Primary Care Provider [phone] Encounter Details Date Type Department Care Team (Late st Contact Info) Description 06/17/2020 2:36 PM [place] [address] Merlin Joyce MD [facility] [place] [address] Danuta Dye, SKIVER BLOCKERS [address] [facility] 3B-1 [place] [address] Anesthesia Record Procedure Summary Procedure Name Responsible [...] 1418; metacarpal vein (top of hand), right; [id number] catheter system; 20 gauge; bob neville; distraction; [...] Procedure Summary Date: 06/17/20 Room / Location: [facility] INTERVENTIONAL RADIOLOGY 2 / [facility] Anesthesia Start: 1436 Anesthesia Stop: 1616 Procedure: FISTULAGRAM (Left ) Diagnosis: (ESRD (end stage renal disease)) Surgeons: Ceasar Gonzalez MD Responsible Provider: Merlin Joyce MD Anesthesia Type: general ASA Status: 3 All Anesthesia Providers: Anesthesiologist: Merlin Joyce MD Parts Professional: Bob Neville MD Vitals Value Taken Time [...] INSERTION performed by Erasmo Bajwa MD at [facility] OSC ? ? PRO REPAIR COMPLEX RETINA DETACH VITRECTOMY & MEMB PEEL 04/03/2012, 04/03/12 REPAIR COMPLEX RETINAL DETACHMENT, W/ VITRECTOMY, MEMBRANE PEELING performed by Matteo Diane MD at [facility] MAIN OR ? ? PRO REPAIR COMPLEX RETINA DETACH VITRECTOMY & MEMB PEEL 07/31/2012 REPAIR COMPLEX RETINAL DETACHMENT, W/ VITRECTOMY, MEMBRANE PEELING performed by Matteo Diane MD at [facility] MAIN OR ? ? PRO REPAIR COMPLEX RETINA DETACH VITRECTOMY & MEMB PEEL 01/08/2013 REPAIR COMPLEX RETINAL DETACHMENT, W/ VITRECTOMY, MEMBRANE PEELING performed by Matteo Diane MD at [facility] MAIN OR ??? PRO TX [...] mL/hr documented in this encounter Care Teams Hand Icer Relationship Specialty Start Date End Date Jarad Keller DNP PCP - General Family Medicine 06/05/18 02/09/21 documented as of this encounter
--- OUTSIDE RECORDS SUMMARY | 2024-02-24 16:58 | XMS_ITS | Encounter Summary ---
Author Organization [facility] [place] [address] Care Team Providers Care Impress Associate Name Role Phone Kimani Leger MD Primary Care Provider [phone] Reason for Referral * Consultation (Routine) - Authorized Specialty Diagnoses / Procedures Referred By Puneet hallman Referred To Contact Ophthalmology Diagnoses Type 2 diabetes mellitus with retinopathy without macular edema, unspecified laterality, unspecified retinopathy severity, unspecified whether rodent exterminator insulin use Kimani Leger MD [address] [place] [address] [place] [address] Gudelia Carter OD [facility] [place] [address] Referral ID Status Reason Start Date Expiration Date Visits Requested Visits Authorized [id number] Authorized Consult, Test & Treat PCP Updated and/or Approved 08/15/2023 08/14/2024 6 6 Encounter Details Date Type Department Care Team (Late st Contact Info) Description 08/15/2023 Transcribe Orders eDH Incoming Referrals [phone] Kimani Leger MD [address] [place] [address] [place] [address] Type 2 diabetes mellitus with retinopathy without macular edema, unspecified laterality, unspecified retinopathy severity, unspecified whether rodent exterminator insulin use Social History Tobacco Use Types [...] unspecified laterality, unspecified retinopathy severity, unspecified whether rodent exterminator insulin use Ordered: 08/15/2023 documented as of this encounter Visit Diagnoses Diagnosis Type 2 diabetes mellitus with retinopathy without macular edema, unspecified laterality, unspecified retinopathy severity, unspecified whether rodent exterminator insulin use documented in this encounter Care Teams Impress Associate Relationship Specialty Start Date End Date Kimani Leger MD PCP - General Family Medicine 02/10/21 01/29/24 documented as of this encounter
--- OUTSIDE RECORDS SUMMARY | 2024-02-24 16:58 | XMS_ITS | Encounter Summary ---
[place] [address] Care Team Providers Care Parenting Skills Instructor Name Role Phone Kimani Leger MD Primary Care Provider Encounter Details Date Type Department Care Team (Late st Contact Info) Description 09/20/2023 Telephone [place] [address] Lian Card MD [facility] [place] [address] Social History Tobacco Use Types Packs/Day Years [...] on filedocumented in this encounter Care Teams Parenting Skills Instructor Relationship Specialty Start Date End Date Kimani Leger MD PCP - General Family Medicine 02/10/21 01/29/24 documented as of this encounter
--- OUTSIDE RECORDS SUMMARY | 2024-02-24 16:58 | XMS_ITS | Encounter Summary ---
Author Organization [facility] [place] [address] Care Team Providers Care Shoemaker Apprentice Name Role Phone Kimani Leger MD Primary Care Provider [phone] Reason for Visit * Reason Comments PDR * Consultation (Routine) - Closed Specialty Diagnoses / Procedures Referred By Puneet hallman Referred To Contact Ophthalmology Diagnoses Type 2 diabetes mellitus with unspecified diabetic retinopathy without macular edema Kimani Leger MD [address] [place] [address] [place] [address] Harmeet Arvizu MD [facility] [place] [address] Referral ID Status Reason Start Date Expiration Date V isits Requested Visits Authorized [id number] Closed Consult, Test & Treat Connection Center PCP Updated and/or Approved 01/28/2021 07/28/2021 6 6 Encounter Details Date Type Department Care Team (Latest Contact Info) Description 06/08/2021 12:15 PM EST Office [place] [address] Harmeet Arvizu MD [facility] [place] [address] Proliferative diabetic retinopathy of left eye with [...] category documented in this encounter Care Teams Shoemaker Apprentice Relationship Specialty Start Date End Date Kimani Leger MD PCP - General Family Medicine 02/10/21 01/29/24 documented as of this encounter
--- OUTSIDE RECORDS SUMMARY | 2024-02-24 16:58 | XMS_ITS | Encounter Summary ---
Author Organization [facility] [place] [address] Care Team Providers Care Lasting Machine Operator Bed Name Role Phone iKmani Leger MD Primary Care Provider [phone] Encounter Details Date Type Department Care Team (Late st Contact Info) Description 09/20/2023 7:15 PM EDT Ancillary Procedure Radiology Library at [facility] [place] [place] [address] Kimani Leger MD [address] [place] [address] [address] [place], [place] [id number] Social History Tobacco Use Types Packs/Day Years [...] is for storage only. Kimani Leger MD IMG FILM LIBRARY ORD ERABLES Performing Organization Address City/State/[facility] Co de Phone Number [place], [place] documented in this encounter Visit Diagnoses Not on filedocumented in this encounter Care Teams Lasting Machine Operator Bed Relationship Specialty Start Date End Date Kimani Leger MD PCP - General Family Medicine 02/10/21 01/29/24 documented as of this encounter
--- OUTSIDE RECORDS SUMMARY | 2024-02-24 16:58 | XMS_ITS | Encounter Summary ---
[place] [address] Care Team Providers Care Central Supply Supervisor Name Role Phone Jarad Keller DNP Primary Care Provider [phone] Encounter Details Date Type Department Care Team (Late st Contact Info) Description 07/30/2020 Telephone [place] [address] Cecilia Brooke LPN Social History Tobacco Use [...] EDT Called and spoke with staff at [facility]. Per staff recent hemoglobin A1C completed 07/08/20 was 11. Faxing over labs to [phone]. Advised to call back kidney transplant clinic with any questions or updates. documented in this encounter Plan of Treatment Not on file documented as of this encounter Visit Diagnoses Not on filedocumented in this encounter Care Teams Central Supply Supervisor Relationship Specialty Start Date End Date Jarad Keller DNP PCP - General Family Medicine 06/05/18 02/09/21 documented as of this encounter
--- OUTSIDE RECORDS SUMMARY | 2024-02-24 16:58 | XMS_ITS | Encounter Summary ---
Author Organization [facility] [place] [address] Care Team Providers Care Auger Mill Operator Name Role Phone Kimani Leger MD Primary Care Provider [phone] Reason for Visit * Reason Comments Medication Refill Encounter Details Date Type Department Care Team ([facility] st Contact Info) Description 05/31/2021 Refill [place] [address] Too Morgan MD [facility] [place] [address] Social History Tobacco Use Types Packs/Day Years [...] on filedocumented in this encounter Care Teams Auger Mill Operator Relationship Specialty Start Date End Date Kimani Leger MD PCP - General Family Medicine 02/10/21 01/29/24 documented as of this encounter
--- OUTSIDE RECORDS SUMMARY | 2024-02-24 16:58 | XMS_ITS | Encounter Summary ---
[place] [address] Care Team Providers Care Cold Strip Feeder Name Role Phone Jarad Keller DANIKA Primary Care Provider [phone] Encounter Details Date Type Department Care Team (Late st Contact Info) Description 12/08/2020 Telephone [place] [address] Sherie Mccallum, [facility] [place] [address] Social History Tobacco Use Types Packs/Day Years [...] on filedocumented in this encounter Care Teams Cold Strip Feeder Relationship Specialty Start Date End Date Jarad Keller DNP PCP - General Family Medicine 06/05/18 02/09/21 documented as of this encounter
--- OUTSIDE RECORDS SUMMARY | 2024-02-24 16:58 | XMS_ITS | Encounter Summary ---
Author Organization [facility] [place] [address] Care Team Providers Care Statistical Modeler Name Role Phone Kimani Leger MD Primary Care Provider [phone] Encounter Details Date Type Department Care Team (Late st Contact Info) Description 02/25/2023 [place] [address] Too Morgan MD [facility] [place] [address] Social History Tobacco Use Types Packs/Day Years [...] on filedocumented in this encounter Care Teams Statistical Modeler Relationship Specialty Start Date End Date Kimani Leger MD PCP - General Family Medicine 02/10/21 01/29/24 documented as of this encounter
--- OUTSIDE RECORDS SUMMARY | 2024-02-24 16:58 | XMS_ITS | Encounter Summary ---
[place] [address] Care Team Providers Care Interlacer Name Role Phone Kimani Leger MD Primary Care Provider [phone] Encounter Details Date Type Department Care Team (Late st Contact Info) Description 01/18/2022 1:30 PM [place] [address] Eliot Rivers MD [facility] [place] [address] Johanna Green [place] [address] Anesthesia Record Procedure Summary Procedure Name Responsible [...] Chantale Jennings RN Wound 01/04/24; 0630; Y; R ight; plantar; neuropathic wound/ulcer 01/04/24 0630 by Chantale Howard RN Incision 01/04/24; 1545; Righ t; fifth toe 01/04/24 1545 by Fozia Carter RN documented in this encounter Social History [...] AV Fistula Evaluations 06/17/2020 Kimani Larson MD [facility] INTERVENTIONL RAD ??? IR DIALYSIS ACCESS - AV FISTULA EVALUATIONS 11/04/2020 IR Dialysis Access - AV Fistula Evaluations 11/04/2020 Kimani Larson MD [facility] INTERVENTIONL RAD ??? PERIPHERAL IRIDOTOMY 04/06/2012 OD [place] ??? PRO EXTRACAPSULAR CATARACT RMVL INSERTION IO LENS PROSTH CPLX WO ECP 07/18/2012 ??? PRO EXTRACAPSULAR CATARACT RMVL INSERTION IO LENS PROSTH W/O ECP 11/29/2012 CATARACT EXTRACTION, EXTRACAPSULAR, W/ LENS INSERTION performed by Erasmo Bajwa MD at [facility] OSC ? ? PRO REPAIR COMPLEX RETINA DETACH VITRECTOMY & MEMB PEEL 04/03/2012, 04/03/12 REPAIR COMPLEX RETINAL DETACHMENT, W/ VITRECTOMY, MEMBRANE PEELING performed by Matteo Diane MD at [facility] MAIN OR ? ? PRO REPAIR COMPLEX RETINA DETACH VITRECTOMY & MEMB PEEL 07/31/2012 REPAIR COMPLEX RETINAL DETACHMENT, W/ VITRECTOMY, MEMBRANE PEELING performed by Matteo Diane MD at [facility] MAIN OR ? ? PRO REPAIR COMPLEX RETINA DETACH VITRECTOMY & MEMB PEEL 01/08/2013 REPAIR COMPLEX RETINAL DETACHMENT, W/ VITRECTOMY, MEMBRANE PEELING performed by Matteo Diane MD at [facility] MAIN OR ??? PRO TX [...] on filedocumented in this encounter Care Teams Interlacer Relationship Specialty Start Date End Date Kimani Leger MD PCP - General Family Medicine 02/10/21 01/29/24 documented as of this encounter
--- OUTSIDE RECORDS SUMMARY | 2024-02-24 16:58 | XMS_ITS | Encounter Summary ---
[place] [address] Care Team Providers Care Flight Engineer Helicopter Name Role Phone Jarad Keller DANIKA Primary Care Provider [phone] Reason for Referral * Diagnostic Test (Routine) - Closed Specialty Diagnoses / Procedures Referred By Puneet hallman Referred To Contact Radiology Diagnoses ESRD (end stage renal disease) Procedures IR Dialysis Access - AV Fistula Evaluations Too Morgan MD [facility] [place] [address] [place] [address] Referral ID Status Reason Start Date Expiration Date V isits Requested Visits Authorized [id number] Closed Specialty Service Requested 06/03/2020 12/01/2021 1 1 Reason for Visit * Diagnostic Test (Routine) - Closed Specialty Diagnoses / Procedures Referred By Contariel hallman Referred To Contact Radiology Diagnoses ESRD (end stage renal disease) Procedures IR Dialysis Access - AV Fistula Evaluations Too Morgan MD [facility] [place] [address] [facility] [place] [address] Referral ID Status Reason Start Date Expiration Date V isits Requested Visits Authorized [id number] Closed Specialty Service Requested 06/03/2020 12/01/2021 1 1 Encounter Details Date Type Department Care Team (Latest Contact Info) Description 06/17/2020 2:30 PM EST - 06/17/2020 11:59 PM EST Hospital En[place] [address] Too Morgan MD [facility] [place] [address] ESRD on dialysis; Type 2 [...] Questions Answers Where will study be performed? [facility] Radiology [120] Laterality Left Is the [...] experiencing decreased flows. No prior interventions by [facility]. History of type 2 insulin-dependent diabetes [...] tablet 3 ??? OneTouch Verio Flex meter [facility] TEST BLOOD GLUCOSE THREE [...] (V-GO 20) Device 1 each by [facility].(Non-Drug; Combo Route) route daily. [...] INSERTION performed by Erasmo Bajwa MD at [facility] OSC ? ? PRO REPAIR COMPLEX RETINA DETACH VITRECTOMY & MEMB PEEL 04/03/2012, 04/03/12 REPAIR COMPLEX RETINAL DETACHMENT, W/ VITRECTOMY, MEMBRANE PEELING performed by Matteo Diane MD at [facility] MAIN OR ? ? PRO REPAIR COMPLEX RETINA DETACH VITRECTOMY & MEMB PEEL 07/31/2012 REPAIR COMPLEX RETINAL DETACHMENT, W/ VITRECTOMY, MEMBRANE PEELING performed by Matteo Diane MD at [facility] MAIN OR ? ? PRO REPAIR COMPLEX RETINA DETACH VITRECTOMY & MEMB PEEL 01/08/2013 REPAIR COMPLEX RETINAL DETACHMENT, W/ VITRECTOMY, MEMBRANE PEELING performed by Matteo Diane MD at [facility] MAIN OR ??? PRO TX EXTENSIVE RETINOPATHY, PHOTOCOAGULATION 07/06/2011 OS CBC ??? PRO TX EXTENSIVE RETINOPATHY, PHOTOCOAGULATION 07/27/2011 OS CBC ??? PRO TX EXTENSIVE RETINOPATHY, PHOTOCOAGULATION 09/21/2011 OS CBC ??? PRO TX EXTENSIVE RETINOPATHY, PHOTOCOAGULATION 12/20/2011 OS MANN ??? PRO TX EXTENSIVE RETINOPATHY, PHOTOCOAGULATION 01/04/2012 OS MANN ??? VITRECTOMY, W/ MEMBRANE STRIPPING 04/03/2012 OD, CBC ??? YAG CAPSULOTOMY 11/15/[address] - [address] Bawja Social history and habits: Social History Tobacco [...] Questions Answers Where will study be performed? [facility] Radiology [120] Laterality Left Is the [...] experiencing decreased flows. No prior interventions by [facility]. History of type 2 insulin-dependent diabetes [...] tablet 3 ??? OneTouch Verio Flex meter [facility] TEST BLOOD GLUCOSE THREE [...] (V-GO 20) Device 1 each by [facility].(Non-Drug; Combo Route) route daily. [...] INSERTION performed by Erasmo Bajwa MD at [facility] OSC ? ? PRO REPAIR COMPLEX RETINA DETACH VITRECTOMY & MEMB PEEL 04/03/2012, 04/03/12 REPAIR COMPLEX RETINAL DETACHMENT, W/ VITRECTOMY, MEMBRANE PEELING performed by Matteo Diane MD at [facility] MAIN OR ? ? PRO REPAIR COMPLEX RETINA DETACH VITRECTOMY & MEMB PEEL 07/31/2012 REPAIR COMPLEX RETINAL DETACHMENT, W/ VITRECTOMY, MEMBRANE PEELING performed by Matteo Diane MD at [facility] MAIN OR ? ? PRO REPAIR COMPLEX RETINA DETACH VITRECTOMY & MEMB PEEL 01/08/2013 REPAIR COMPLEX RETINAL DETACHMENT, W/ VITRECTOMY, MEMBRANE PEELING performed by Matteo Diane MD at [facility] MAIN OR ??? PRO TX EXTENSIVE [...] experiencing decreased flows. ??No prior interventions by [facility]. 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 Remainder of patient's medical and surgical history, allergies, medications, and social/family history obtained below as previously outlined in patient's medical record. Per patient he fistula created in [place] about 5 years ago. He has undergone one prior fistulagram in [place] with intervention. Technique: After obtaining informed consent, [...] used to dilate the cephalic stenosis. ??Post RESEARCH CENTER DIRECTOR radial artery arteriography showed resolution of the [...] stenosis AV anastomosis resolved with 5 mm RESEARCH CENTER DIRECTOR 3. ??Moderate/severe 2 cm juxta anastomotic cephalic vein stenosis resolved with 6 mm RESEARCH CENTER DIRECTOR. 4. ??Outflow from elbow centrally via both cephalic and basilic systems without central stenoses. 5. ??Coil from prior intervention at outside hospital in the forearm approximately 4 cm central to the AV anastomosis. ??Presumably placed in a side branch vein. Plan/Disposition: 1) To Same day recovery room, may discharge to home when meets criteria. 2) left upper extremity dialysis fistula ready for use. Plant Technician/Control Room Operator(s): Resident/Fellow: Narinder Rivera Attending: Dr. Larson. ??I, Dr. Larson was present throughout this procedure. 06/17/2020 Too Morgan MD G IR ORDERABLES * (ABNORMAL) Basic Metabolic Panel (non-fasting) (06/17/2020 1:48 PM EST) Glucose 258(H) 65 - 199 mg/dL [facility] Comment:Diabetes: >=200 mg/d L plus symptoms Blood Urea Nitrogen 15 10 - 20 mg/dL [facility] Creatinine 2.44(H) 0.80 - 1.50 mg/dL [facility] Sodium 137 135 - 145 mmol/L [facility] Potassium 4.0 3.5 - 5.0 mmol/L [facility] Comment: Please note: ??Patients with WBC >100,000 may have falsely elevated Potassium levels. ??For accurate Potassium quantification in these patients send serum separator tube (gold top) for subsequent determinations. ??Contact the Clinical Chemistry Laboratory if there are any questions. Chloride 93(L) 98 - 107 mmol/L [facility] Carbon Dioxide 35(H) 22 - 31 mmol/L [facility] Anion Gap 9 5 - 15 mmol/L [facility] Calcium 9.6 8.5 - 10.5 mg/dL [facility] Est Glomerular Filtration Rate 28(L) >=60 mL/min/1. 73 m?? [facility] Comment: This patient? s estimated [...] Lab Too Morgan MD CHEMISTRY ORDERABLE S [facility] [place] [address] * (ABNORMAL) Hemogram (06/17/2020 1:48 PM EST) White Blood Cell 7.0 4.0 - 9.5 x10(3)/mc L [facility] Red Blood Cell 4.09(L) 4.58 - 5.54 x10(6)/mc L [facility] Hemoglobin 12.9(L) 13.7 - 16.5 gm/dL [facility] Hematocrit 37.3(L) 40.5 - 48.5 % [facility] Mean Cell Volume 91.2 82.9 - 93.1 fL [facility] Mean Cell Hemoglobin 31.5 27.5 - 32.1 pg [facility] Mean Cell Hemoglobin Concentration 34.6 32.0 - 35.7 gm/dL [facility] Platelet 142(L) 145 - 357 x10(3)/mc L [facility] RDW Standard Deviation 43.9 36.0 - 45.0 fL [facility] RDW coefficient of variation 13.1 11.4 - 13.8 % [facility] Mean Platelet Volume 10.0 7.6 - 12.9 fL [facility] NRBC% auto 0.0 % [facility] NRBC Absolute 0.000 0.000 - 0.000 x10(3)/mc L [facility] Blood specimen (specimen) 06/17/2020 1:48 PM EST 06/17/2020 2:00 PM EST Narrative Resulting Agency Comment Spec In Lab Too Morgan MD HEMATOLOGY ORDERABL ES [facility] [place] [address] documented in this encounter Visit Diagnoses Diagnosis [...] mLs documented in this encounter Care Teams Flight Engineer Helicopter Relationship Specialty Start Date End Date Jarad Keller DNP PCP - General Family Medicine 06/05/18 02/09/21 documented as of this encounter
--- OUTSIDE RECORDS SUMMARY | 2024-02-24 16:58 | XMS_ITS | Encounter Summary ---
[place] [address] Care Team Providers Care Bulldozer Operator Name Role Phone Jarad Keller DANIKA Primary Care Provider [phone] Reason for Referral * Diagnostic Test (Routine) - Closed Specialty Diagnoses / Procedures Referred By Puneet hallman Referred To Contact Radiology Diagnoses ESRD (end stage renal disease) Procedures IR Dialysis Access - AV Fistula Evaluations Too Morgan MD [facility] [place] [address] [place] [address] Referral ID Status Reason Start Date Expiration Date V isits Requested Visits Authorized [id number] Closed Specialty Service Requested 10/21/2020 04/22/2022 1 1 Reason for Visit * Diagnostic Test (Routine) - Closed Specialty Diagnoses / Procedures Referred By Puneet hallman Referred To Contact Radiology Diagnoses ESRD (end stage renal disease) Procedures IR Dialysis Access - AV Fistula Evaluations Too Morgan MD [facility] [place] [address] [facility] [place] [address] Referral ID Status Reason Start Date Expiration Date V isits Requested Visits Authorized [id number] Closed Specialty Service Requested 10/21/2020 04/22/2022 1 1 Encounter Details Date Type Department Care Team (Latest Contact Info) Description 11/04/2020 2:30 PM EDT - 11/04/2020 11:59 PM EDT Hospital [place] [address] Too Morgan MD [facility] [address] ESRD (end stage renal disease) Discharge Disposition: [...] Questions Answers Where will study be performed? [facility] Radiology [120] Laterality Left Is the [...] stenosis AV anastomosis resolved with 5 mm COMMUNICATIONS EQUIPMENT SUPERVISOR. 2. Moderate/severe 2 cm juxta anastomotic cephalic vein stenosis resolved with 6 mm COMMUNICATIONS EQUIPMENT SUPERVISOR. 3. Outflow from elbow centrally via [...] AV Fistula Evaluations 06/17/2020 Kimani Larson MD [facility] INTERVENTIONL RAD ??? PERIPHERAL IRIDOTOMY 04/06/2012 OD [place] ??? PRO EXTRACAPSULAR CATARACT RMVL INSERTION IO LENS PROSTH CPLX WO ECP 07/18/2012 ??? PRO EXTRACAPSULAR CATARACT RMVL INSERTION IO LENS PROSTH W/O ECP 11/29/2012 CATARACT EXTRACTION, EXTRACAPSULAR, W/ LENS INSERTION performed by Erasmo Bajwa MD at [facility] OSC ? ? PRO REPAIR COMPLEX RETINA DETACH VITRECTOMY & MEMB PEEL 04/03/2012, 04/03/12 REPAIR COMPLEX RETINAL DETACHMENT, W/ VITRECTOMY, MEMBRANE PEELING performed by Matteo Diane MD at [facility] MAIN OR ? ? PRO REPAIR COMPLEX RETINA DETACH VITRECTOMY & MEMB PEEL 07/31/2012 REPAIR COMPLEX RETINAL DETACHMENT, W/ VITRECTOMY, MEMBRANE PEELING performed by Matteo Diane MD at [facility] MAIN OR ? ? PRO REPAIR COMPLEX RETINA DETACH VITRECTOMY & MEMB PEEL 01/08/2013 REPAIR COMPLEX RETINAL DETACHMENT, W/ VITRECTOMY, MEMBRANE PEELING performed by Matteo Diane MD at [facility] MAIN OR ??? PRO TX EXTENSIVE [...] 10 Code: E11.65) 15 mL 5 ??? [place] U-100 Insulin 100 unit/mL (3 mL) [...] Questions Answers Where will study be performed? [facility] Radiology [120] Laterality Left Is the [...] stenosis AV anastomosis resolved with 5 mm COMMUNICATIONS EQUIPMENT SUPERVISOR. 2. Moderate/severe 2 cm juxta anastomotic cephalic vein stenosis resolved with 6 mm COMMUNICATIONS EQUIPMENT SUPERVISOR. 3. Outflow from elbow centrally via [...] AV Fistula Evaluations 06/17/2020 Kimani Larson MD [facility] INTERVENTIONL RAD ??? PERIPHERAL IRIDOTOMY 04/06/2012 OD [place] ??? PRO EXTRACAPSULAR CATARACT RMVL INSERTION IO LENS PROSTH CPLX WO ECP 07/18/2012 ??? PRO EXTRACAPSULAR CATARACT RMVL INSERTION IO LENS PROSTH W/O ECP 11/29/2012 CATARACT EXTRACTION, EXTRACAPSULAR, W/ LENS INSERTION performed by Erasmo Bajwa MD at [facility] OSC ? ? PRO REPAIR COMPLEX RETINA DETACH VITRECTOMY & MEMB PEEL 04/03/2012, 04/03/12 REPAIR COMPLEX RETINAL DETACHMENT, W/ VITRECTOMY, MEMBRANE PEELING performed by Matteo Diane MD at [facility] MAIN OR ? ? PRO REPAIR COMPLEX RETINA DETACH VITRECTOMY & MEMB PEEL 07/31/2012 REPAIR COMPLEX RETINAL DETACHMENT, W/ VITRECTOMY, MEMBRANE PEELING performed by Matteo Diane MD at [facility] MAIN OR ? ? PRO REPAIR COMPLEX RETINA DETACH VITRECTOMY & MEMB PEEL 01/08/2013 REPAIR COMPLEX RETINAL DETACHMENT, W/ VITRECTOMY, MEMBRANE PEELING performed by Matteo Diane MD at [facility] MAIN OR ??? PRO TX EXTENSIVE [...] to AV anastomosis, resolved with 7 mm COMMUNICATIONS EQUIPMENT SUPERVISOR. 3. Coil from prior intervention at outside hospital in the forearm, unchanged from 06/17/20. 4. AV anastomosis not stenotic. Plan/Disposition: 1) To Same Day for recovery, may discharge to home when meets criteria. 2) Left arm dialysis fistula ready for use. Terminal Operator(s): Resident/Fellow: Narinder Rivera Attending: Dr. Larson. [...] mLs documented in this encounter Care Teams Bulldozer Operator Relationship Specialty Start Date End Date Jarad Kelelr DNP PCP - General Family Medicine 06/05/18 02/09/21 documented as of this encounter
--- OUTSIDE RECORDS SUMMARY | 2024-02-24 16:58 | XMS_ITS | Encounter Summary ---
Author Organization [facility] [place] [address] Care Team Providers Care Rug Touch Up Painter Name Role Phone Kimani Leger MD Primary Care Provider [phone] Encounter Details Date Type Department Care Team (Late st Contact Info) Description 12/23/2021 Notes [place] [address] Kameron Rodriguez PA [facility] [place] [address] Social History Tobacco Use Types Packs/Day Years [...] to AV anastomosis, resolved with 7 mm BLANKER OPERATOR. ?? 3. Coil from prior intervention at [...] AV Fistula Evaluations 06/17/2020 Kimani Larson MD [facility] INTERVENTIONL RAD ??? IR DIALYSIS ACCESS - AV FISTULA EVALUATIONS 11/04/2020 IR Dialysis Access - AV Fistula Evaluations 11/04/2020 Kimani Larson MD [facility] INTERVENTIONL RAD ??? PERIPHERAL IRIDOTOMY 04/06/2012 OD [place] ??? PRO EXTRACAPSULAR CATARACT RMVL INSERTION IO LENS PROSTH CPLX WO ECP 07/18/2012 ??? PRO EXTRACAPSULAR CATARACT RMVL INSERTION IO LENS PROSTH W/O ECP 11/29/2012 CATARACT EXTRACTION, EXTRACAPSULAR, W/ LENS INSERTION performed by Erasmo Bajwa MD at [facility] OSC ? ? PRO REPAIR COMPLEX RETINA DETACH VITRECTOMY & MEMB PEEL 04/03/2012, 04/03/12 REPAIR COMPLEX RETINAL DETACHMENT, W/ VITRECTOMY, MEMBRANE PEELING performed by Matteo Diane MD at [facility] MAIN OR ? ? PRO REPAIR COMPLEX RETINA DETACH VITRECTOMY & MEMB PEEL 07/31/2012 REPAIR COMPLEX RETINAL DETACHMENT, W/ VITRECTOMY, MEMBRANE PEELING performed by Matteo Diane MD at [facility] MAIN OR ? ? PRO REPAIR COMPLEX RETINA DETACH VITRECTOMY & MEMB PEEL 01/08/2013 REPAIR COMPLEX RETINAL DETACHMENT, W/ VITRECTOMY, MEMBRANE PEELING performed by Matteo Diane MD at [facility] MAIN OR ??? PRO TX [...] on filedocumented in this encounter Care Teams Rug Touch Up Painter Relationship Specialty Start Date End Date Kimani Leger MD PCP - General Family Medicine 02/10/21 01/29/24 documented as of this encounter
--- OUTSIDE RECORDS SUMMARY | 2024-02-24 16:58 | XMS_ITS | Encounter Summary ---
[place] [address] Care Team Providers Care Front End Java Developer Name Role Phone Kimani Leger MD Primary Care Provider [phone] Reason for Visit * Reason Onset Date Comments Appointment 06/09/2021 Encounter Details Date Type Department Care Team (Late st Contact Info) Description 06/09/2021 [place]phone [place] [address] Harmeet Arvizu MD [facility] [place] [address] Appointment Social History Tobacco Use Types Packs/Day [...] filedocumented in this encounter Care Teams Front End Java Developer Relationship Specialty Start Date End Date Kimani Leger MD PCP - General Family Medicine 02/10/21 01/29/24 documented as of this encounter
--- OUTSIDE RECORDS SUMMARY | 2024-02-24 16:58 | XMS_ITS | Encounter Summary ---
[place] [address] Care Team Providers Care Private Branch Exchange Service Advisor Name Role Phone Kimani Leger MD Primary Care Provider [phone] Reason for Referral * Diagnostic Test (Routine) - Closed Specialty Diagnoses / Procedures Referred By Puneet hallman Referred To Contact Radiology Diagnoses ESRD (end stage renal disease) Procedures IR Dialysis Access - AV Fistula Evaluations Simi Mcfadden APRN [facility] [place] [address] [facility] [place] [address] Referral ID Status Reason Start Date Expiration Date V isits Requested Visits Authorized [id number] Closed Specialty Service Requested 12/22/2021 06/24/2023 1 1 Encounter Details Date Type Department Care Team (Late st Contact Info) Description 12/22/2021 Orders Only [place]ph[place] [address] Simi Mcfadden APRN [facility] [place] [address] ESRD (end stage renal disease) Social History [...] the AV anastomosis, resolved with 7 mm MINOR LEAGUE BASEBALL PLAYER. Additional 5 mm MINOR LEAGUE BASEBALL PLAYER of the AV anastomosis was performed. Plan: [...] a permanent image was stored. A 5 [place] sheath was placed. Access technique: Micropuncture set [...] Angioplasty balloon(s): 7 mm x 40 mm [place] Angioplasty of the juxta-anastomotic location was performed. Angioplasty balloon(s): 5 mm x 40 mm [place] Final fistulagram Final fistulagram was performed. Findings: [...] have questions please contact the health care management associate that requested your imaging first. ? Electronically signed by: Roderick Castillo MD, [facility] ([phone]), at 01/27/2022 7:26 AM Narrative 01/27/2022 7:26 [...] the AV anastomosis, resolved with 7 mm MINOR LEAGUE BASEBALL PLAYER. Additional 5 mm PTAof the AV anastomosis [...] a permanent image was stored. A 5 [place] sheath wasplaced. Access technique: Micropuncture set with [...] Angioplasty balloon(s): 7 mm x 40 mm [place] Angioplasty of the juxta-anastomotic location was performed. Angioplasty balloon(s): 5 mm x 40 mm [place] Final fistulagram Final fistulagram was performed. Findings: [...] who have questions please contactthe health care management associate that requested your imaging first. Electronically signed by: Roderick Castillo MD, [facility]([phone]), at 01/27/2022 7:26 AM Simi Mcfadden ARSON INVESTIGATOR IMG IR ORDERABLES documented in this encounter Visit Diagnoses Diagnosis ESRD (end stage renal disease) End stage renal disease ESRD (end stage renal disease) End stage renal disease documented in this encounter Care Teams Private Branch Exchange Service Advisor Relationship Specialty Start Date End Date Kimani Leger MD PCP - General Family Medicine 02/10/21 01/29/24 documented as of this encounter
--- OUTSIDE RECORDS SUMMARY | 2024-02-24 16:58 | XMS_ITS | Encounter Summary ---
Author Organization [facility] [place] [address] Care Team Providers Care Registered Nurse Bone Marrow Transplant Name Role Phone Jarad Keller DNP Primary Care Provider [phone] Encounter Details Date Type Department Care Team (Latest Contact Info) Description 06/17/2020 1:28 PM EST - 06/17/2020 4:52 PM [facility] Hospital Encounter [place] [id number] Ceasar Gonzalez MD [facility] DIAGNOSTIC [place] [address] ESRD on dialysis; Type 2 diabetes mellitus [...] Glucose, POC 238(H) 65 - 199 mg/dL [facility] Comment: Supplemental ranges: <140 mg/dL before meals <180 mg/dL all other times of the day Blood specimen (specimen) 06/17/2020 4:34 PM EST 06/17/2020 4:34 PM EST Ceasar Gonzalez MD POINT OF CARE TEST O ANTONETTE Performing Organization Address City/[facility]/ZIP Co de Phone Number [facility] [place] [address] * (ABNORMAL) POCT Glucose (06/17/2020 2:04 PM EST) Pathologist [facility] Glucose, POC 243(H) 65 - 199 mg/dL [facility] Comment: Supplemental ranges: <140 mg/dL before meals <180 mg/dL all other times of the day Blood specimen (specimen) 06/17/2020 2:04 PM EST 06/17/2020 2:04 PM EST Ceasar Gonzalez MD POINT OF CARE TEST O ANTONETTE Performing Organization Address City/[facility]/ZIP Co de Phone Number [facility] [place] [address] * (ABNORMAL) Hemogram (06/17/2020 1:48 PM EST) [facility] White Blood Cell 7.0 4.0 - 9.5 x10(3)/mc L [facility] Red Blood Cell 4.09(L) 4.58 - 5.54 x10(6)/mc L [facility] Hemoglobin 12.9(L) 13.7 - 16.5 gm/dL [facility] Hematocrit 37.3(L) 40.5 - 48.5 % [facility] Mean Cell Volume 91.2 82.9 - 93.1 fL [facility] Mean Cell Hemoglobin 31.5 27.5 - 32.1 pg [facility] Mean Cell Hemoglobin Concentration 34.6 32.0 - 35.7 gm/dL [facility] Platelet 142(L) 145 - 357 x10(3)/mc L [facility] RDW Standard Deviation 43.9 36.0 - 45.0 fL [facility] RDW coefficient of variation 13.1 11.4 - 13.8 % [facility] Mean Platelet Volume 10.0 7.6 - 12.9 fL [facility] NRBC% auto 0.0 % [facility] NRBC Absolute 0.000 0.000 - 0.000 x10(3)/mc L [facility] Blood specimen (specimen) 06/17/2020 1:48 PM EST 06/17/2020 2:00 PM EST Narrative Resulting Agency Comment Spec In Lab Too Morgan MD HEMATOLOGY ORDERABL ES [facility] [place] [address] * (ABNORMAL) Basic Metabolic Panel (non-fasting) (06/17/2020 1:48 PM EST) Glucose 258(H) 65 - 199 mg/dL [facility] Comment:Diabetes: >=200 mg/d L plus symptoms Blood Urea Nitrogen 15 10 - 20 mg/dL [facility] Creatinine 2.44(H) 0.80 - 1.50 mg/dL [facility] Sodium 137 135 - 145 mmol/L [facility] Potassium 4.0 3.5 - 5.0 mmol/L [facility] Comment: Please note: ??Patients with WBC >100,000 may have falsely elevated Potassium levels. ??For accurate Potassium quantification in these patients send serum separator tube (gold top) for subsequent determinations. ??Contact the Clinical Chemistry Laboratory if there are any questions. Chloride 93(L) 98 - 107 mmol/L [facility] Carbon Dioxide 35(H) 22 - 31 mmol/L [facility] Anion Gap 9 5 - 15 mmol/L [facility] Calcium 9.6 8.5 - 10.5 mg/dL [facility] Est Glomerular Filtration Rate 28(L) >=60 mL/min/1. 73 m?? [facility] Comment: This patient? s estimated [...] MD CHEMISTRY ORDERABLE S Performing Organization Address City/State/[facility] [place] [address] documented in this encounter Visit Diagnoses Diagnosis [...] Routine documented in this encounter Care Teams Registered Nurse Bone Marrow Transplant Relationship Specialty Start Date End Date Jarad Keller DNP PCP - General Family Medicine 06/05/18 02/09/21 documented as of this encounter
--- OUTSIDE RECORDS SUMMARY | 2024-02-24 16:58 | XMS_ITS | Encounter Summary ---
[place] [address] Care Team Providers Care Sap Trainer Name Role Phone Jarad Keller DNP Primary Care Provider [phone] Encounter Details Date Type Department Care Team (Late st Contact Info) Description 08/27/2020 Telephone [place] [phone] Cheryl Presley RD [facility] [address] [place] [address] Social History Tobacco Use Types Packs/Day Years [...] nutrition-relatedgoal previously established for kidney transplantation. This information writer unable to contact Maurice as mobile number listed in chart not belonging to him. This information writer obtained pt's 's (Kaye) phone number from dialysis center - number disconnected. Asked dialysis center to inform Maurice tomorrow when he c omes in for dialysis treatment that information writer attempting to get in touch with him and to give information writer acall when pt gets a chance. asset protection professional agreeable to plan. Thank you, Cheryl Presley RD documented in this encounter Plan of Treatment Not on file documented as of this encounter Visit Diagnoses Not on filedocumented in this encounter Care Teams Sap Trainer Relationship Specialty Start Date End Date Jarad Keller DNP PCP - General Family Medicine 06/05/18 02/09/21 documented as of this encounter
--- OUTSIDE RECORDS SUMMARY | 2024-02-24 16:58 | XMS_ITS | Encounter Summary ---
[place] [address] Care Team Providers Care Fashion Director Party Plan Sales Name Role Phone Kimani Leger MD Primary Care Provider [phone] Reason for Visit * Reason Onset Date Comments Follow-up 04/12/2023 Encounter Details Date Type Department Care Team (Late st Contact Info) Description 04/12/2023 Telephone [place] [address] Harmeet Arvizu MD [facility] [place] [address] Follow-up Social History Tobacco Use Types Packs/Day [...] on filedocumented in this encounter Care Teams Fashion Director Party Plan Sales Relationship Specialty Start Date End Date Kimani Leger MD PCP - General Family Medicine 02/10/21 01/29/24 documented as of this encounter
--- OUTSIDE RECORDS SUMMARY | 2024-02-24 16:58 | XMS_ITS | Encounter Summary ---
[place] [address] Care Team Providers Care Track Car Operator Name Role Phone Kimani Leger MD Primary Care Provider [phone] Reason for Referral * Diagnostic Test (Routine) - Closed Specialty Diagnoses / Procedures Referred By Puneet hallman Referred To Contact Radiology Diagnoses ESRD (end stage renal disease) Procedures IR Dialysis Access - AV Fistula Evaluations Simi Mcfadden APRN [facility] [place] [address] [place] [address] Referral ID Status Reason Start Date Expiration Date V isits Requested Visits Authorized [id number] Closed Specialty Service Requested 12/22/2021 06/24/2023 1 1 Reason for Visit * Diagnostic Test (Routine) - Closed Specialty Diagnoses / Procedures Referred By Puneet hallman Referred To Contact Radiology Diagnoses ESRD (end stage renal disease) Procedures IR Dialysis Access - AV Fistula Evaluations Simi Mcfadden APRN [facility] [place] [address] [facility] [place] [address] Referral ID Status Reason Start Date Expiration Date V isits Requested Visits Authorized [id number] Closed Specialty Service Requested 12/22/2021 06/24/2023 1 1 Encounter Details Date Type Department Care Team (Latest Contact Info) Description 01/25/2022 7:30 AM EDT - 01/25/2022 11:59 PM EDT Hospital En[place] [address] Simi Mcfadden APRN [facility] [place] [address] ESRD (end stage renal disease) [...] the AV anastomosis, resolved with 7 mm ION EXCHANGE OPERATOR. Additional 5 mm ION EXCHANGE OPERATOR of the AV anastomosis was performed. Plan: [...] a permanent image was stored. A 5 [place] Islander sheath was placed. Access technique: Micropuncture set [...] Angioplasty balloon(s): 7 mm x 40 mm [place] Angioplasty of the juxta-anastomotic location was performed. Angioplasty balloon(s): 5 mm x 40 mm [place] Final fistulagram Final fistulagram was performed. Findings: [...] have questions please contact the health career development manager that requested your imaging first. ? Electronically signed by: Roderick Castillo MD, [facility] ([phone]), at 01/27/2022 7:26 AM Narrative 01/27/2022 7:26 AM EDT PROCEDURE: Dialysis fistulagram and interventions Procedural Personnel Attending physician(s): Roderick Castillo MD Fellow physician(s): None Resident physician(s): Jacinto Jean DO, Maurice Carrero MD Advanced practice provider(s): None Pre-procedure diagnosis: Left upper extremity radiocephalic AV fistula, decreasing access flows Post-procedure diagnosis: Same Indication: Poor flow rates at dialysis Additional clinical history: None Complications: No immediate complications. Procedure Note Roderick Castillo MD - 01/27/2022 PROCEDURE: Dialysis fistulagram and interventions Procedural Personnel Attending physician(s): Roedrick Castillo MD Fellow physician(s): None Resident physician(s): Jacinto Jean DO, Maurice Carrero MD Advanced practice provider(s): None Pre-procedure diagnosis: Left upper extremity radiocephalic AV fistula, decreasing access flows Post-procedure diagnosis: Same Indication: Poor flow rates at dialysis Additional clinical history: None Complications: No immediate complications. IMPRESSION Left upper extremity radiocephalic fistulagram demonstrates recurrent moderate-severe focal stenosis of the juxta anastomotic cephalic vein 2.5cm central to the AV anastomosis, resolved with 7 mm ION EXCHANGE OPERATOR. Additional 5 mm PTAof the AV anastomosis [...] a permanent image was stored. A 5 [place] Islander sheath wasplaced. Access technique: Micropuncture set with [...] Angioplasty balloon(s): 7 mm x 40 mm [place] Angioplasty of the juxta-anastomotic location was performed. Angioplasty balloon(s): 5 mm x 40 mm [place] Final fistulagram Final fistulagram was performed. Findings: [...] who have questions please contactthe health career development manager that requested your imaging first. Electronically signed by: Roderick Castillo MD, [facility]([phone]), at 01/27/2022 7:26 AM Simi Mcfadden APRN IMG IR ORDERABLES documented in this encounter Visit Diagnoses Diagnosis ESRD (end stage renal disease) End stage renal disease documented in this encounter Care Teams Track Car Operator Relationship Specialty Start Date End Date Kimani Leger MD PCP - General Family Medicine 02/10/21 01/29/24 documented as of this encounter
--- OUTSIDE RECORDS SUMMARY | 2024-02-24 16:59 | XMS_ITS | Encounter Summary ---
Author Organization [facility] [place] [address] Care Team Providers Care Pharmaceutical Analyst Name Role Phone Jarad Keller DNP Primary Care Provider [phone] Reason for Visit * Reason Comments Procedure Eylea 3/3 OS PDR Encounter Details Date Type Department Care Team (Latest Contact Info) Description 03/21/2020 2:45 PM EST Procedure [place] [address] Harmeet Arvizu MD [facility] [place] [address] Proliferative diabetic retinopathy of left eye with [...] about driving: We always recommend having a log driver on the day you get an [...] Normal and Not Expected side effects: Call [phone] (Eye Clinic) DAY or NIGHT, HOLIDAY or WEEKEND if you experience any of the following: = Severe, increasing pain in the eye = Significant, dramatic vision loss = Redness on and around the eye that gets worse, not better = Severe light sensitivity Call [phone] or go to the Emergency room immediately [...] of Eylea 2.0 mg left eye Assist: Application Support Administrator Anesthesia: Topical Proparacaine and topical 4% Lidocaine Complications: None Procedure: The patient was taken to the minor treatment suite where the patient was reidentified using name and birthdate as critical identifiers. The correct eye as the operative site was reidentified by a preplaced site maria r, and the consent form was actively reviewed by the educational program assistant and the surgeon. The left eye was prepped including instillation of Betadine 5% into the left cul de sac for 5 minutes, facial prep with ophthalmic Betadine and placement of a lid speculum. The Surgeon performed hand washing preoperatively, used gloves, and wore a face mask or used no talking technique during the procedudre, as did the surgical dental assistant. After topical anesthesia of the injection [...] call the Eye Clinic or Eye Doctor consulting database administrator, should they develop pain the treated eye, increasing redness or a discharge from the eye. 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
--- OUTSIDE RECORDS SUMMARY | 2024-02-24 16:59 | XMS_ITS | Encounter Summary ---
[place] [address] Care Team Providers Care Superintendent Quarry Name Role Phone Jarad Keller DANIKA Primary Care Provider [phone] Encounter Details Date Type Department Care Team (Latest Contact Info) Description 02/06/2020 3:30 PM EDT Laboratory Appointment Lab [address] [place] [address] Coronary artery disease, angina presence unspecified, unspecified vessel or lesion type, unspecified whether upper sioux or transplanted heart; Benign prostatic hyperplasia, unspecified [...] unspecified vessel or lesion type, unspecified whether upper sioux or transplanted heart Benign prostatic hyperplasia, unspecified [...] unspecified vessel or lesion type, unspecified whether upper sioux or transplanted heart Benign prostatic hyperplasia, unspecified [...] unspecified vessel or lesion type, unspecified whether upper sioux or transplanted heart Benign prostatic hyperplasia, unspecified [...] unspecified vessel or lesion type, unspecified whether upper sioux or transplanted heart Benign prostatic hyperplasia, unspecified [...] unspecified vessel or lesion type, unspecified whether upper sioux or transplanted heart Benign prostatic hyperplasia, unspecified [...] unspecified vessel or lesion type, unspecified whether upper sioux or transplanted heart Benign prostatic hyperplasia, unspecified whether lower urinary tract symptoms present Diabetes mellitus due to underlying condition with diabetic nephropathy, 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 End stage renal disease Pre-transplant evaluation for kidney transplant ABO/RH TYPING Routine 02/06/2020 2:48 PM EDT Coronary artery disease, angina presence unspecified, unspecified vessel or lesion type, unspecified whether upper sioux or transplanted heart Benign prostatic hyperplasia, unspecified whether lower urinary tract symptoms present Diabetes mellitus due to underlying condition with diabetic nephropathy, 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 End stage renal disease Pre-transplant evaluation for kidney transplant HC VENIPUNCTURE Routine 02/06/2020 2:48 PM EDT Coronary artery disease, angina presence unspecified, unspecified vessel or lesion type, unspecified whether upper sioux or transplanted heart Benign prostatic hyperplasia, unspecified [...] unspecified vessel or lesion type, unspecified whether upper sioux or transplanted heart Benign prostatic hyperplasia, unspecified [...] unspecified vessel or lesion type, unspecified whether upper sioux or transplanted heart Benign prostatic hyperplasia, unspecified [...] unspecified vessel or lesion type, unspecified whether upper sioux or transplanted heart Benign prostatic hyperplasia, unspecified [...] unspecified vessel or lesion type, unspecified whether upper sioux or transplanted heart Benign prostatic hyperplasia, unspecified [...] unspecified vessel or lesion type, unspecified whether upper sioux or transplanted heart Benign prostatic hyperplasia, unspecified [...] unspecified vessel or lesion type, unspecified whether upper sioux or transplanted heart Benign prostatic hyperplasia, unspecified [...] unspecified vessel or lesion type, unspecified whether upper sioux or transplanted heart Benign prostatic hyperplasia, unspecified whether lower urinary tract symptoms present Diabetes mellitus due to underlying condition with diabetic nephropathy, 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 End stage renal disease Pre-transplant evaluation for kidney transplant ANTIBODY SCREEN Routine 02/06/2020 2:48 PM EDT Coronary artery disease, angina presence unspecified, unspecified vessel or lesion type, unspecified whether upper sioux or transplanted heart Benign prostatic hyperplasia, unspecified [...] unspecified vessel or lesion type, unspecified whether upper sioux or transplanted heart Benign prostatic hyperplasia, unspecified [...] unspecified vessel or lesion type, unspecified whether upper sioux or transplanted heart Benign prostatic hyperplasia, unspecified [...] unspecified vessel or lesion type, unspecified whether upper sioux or transplanted heart Benign prostatic hyperplasia, unspecified [...] unspecified vessel or lesion type, unspecified whether upper sioux or transplanted heart Benign prostatic hyperplasia, unspecified [...] LAB ORDER ROBBIE [facility] [place] [address] * Antibody screen (02/06/2020 2:48 PM EDT) Pathologist [facility] Ab Screen Interp Negative [facility] Expires at [id number] on: 02/09/2020 [facility] Blood specimen (specimen) 02/06/2020 2:48 PM EDT 02/06/2020 2:57 PM EDT Narrative Resulting Agency Comment Spec In Lab Young Coronado MD BLOOD BANK LAB ORDER ROBBIE Performing Organization Address City/[facility]/ZIP Co de Phone Number [facility] [place] [address] * ABO/Rh Typing (02/06/2020 2:48 PM EDT) ABORH Type A Pos [facility] Blood specimen (specimen) 02/06/2020 2:48 PM EDT 02/06/2020 2:57 PM EDT Narrative Resulting Agency Comment Spec In Lab Young Coronado MD BLOOD BANK LAB ORDER ROBBIE [facility] [place] [address] * APTT (02/06/2020 2:48 PM EDT) [facility] Partial Thromboplastin Time 35 25 - [...] Organization Address [facility] de Phone Number [facility] [place] [address] * Prothrombin Time (02/06/2020 2:48 PM EDT) [...] Organization Address [facility] Co de Phone Number [facility] [place] [address] * Hepatitis B Core Antibody, IgM (02/06/2020 2:48 PM EDT) Hepatitis B Core IgM Negative Negative [facility] Blood specimen (specimen) 02/06/2020 2:48 PM EDT 02/06/2020 2:57 PM EDT Narrative Resulting Agency Comment Spec In Lab Young Coronado MD CHEMISTRY ORDERABLES Performing Organization Address [facility] Co de Phone Number [facility] [place] [address] * Hepatitis B Surface Antibody (02/06/2020 2:48 PM EDT) Hepatitis B Surface Antibody, Quantitative 52.5 IU/L [facility] Comment: HepB Surface Ab Quant: Unvaccinated: < 8.5 IU/L Vaccinated: > 11.5 IU/L Hepatitis B Surface Antibody Positive [facility] Comment: Patient is considered to be immune to HBV infection. Expected Results: Vaccinated: Positive Unvaccinated: Negative Blood specimen (specimen) 02/06/2020 2:48 PM EDT 02/06/2020 2:57 PM EDT Narrative Resulting Agency Comment Spec In Lab Young Coronado MD CHEMISTRY ORDERABLES Performing Organization Address City/[facility]/ZIP Co de Phone Number [facility] [place] [address] * Hepatitis B Surface Antigen (02/06/2020 2:48 PM EDT) Hepatitis B Surface Antigen Negative Negative [facility] Blood specimen (specimen) 02/06/2020 2:48 PM EDT 02/06/2020 2:57 PM EDT Narrative Resulting Agency Comment Spec In Lab Young Coronado MD CHEMISTRY ORDERABLES Performing Organization Address City/[facility]/ZIP Co de Phone Number [facility] [place] [address] * Hepatitis C Antibody (02/06/2020 2:48 PM EDT) Hepatitis C Antibody Negative Negative [facility] Blood specimen (specimen) 02/06/2020 2:48 PM EDT 02/06/2020 2:57 PM EDT Narrative Resulting Agency Comment Spec In Lab Young Coronado MD CHEMISTRY ORDERABLES Performing Organization Address City/[facility]/ZIP Co de Phone Number [facility] [place] [address] * CMV Antibody, IgG (02/06/2020 2:48 PM EDT) CMV IgG Negative Negative [facility] Blood specimen (specimen) 02/06/2020 2:48 PM EDT 02/07/2020 7:33 AM EDT Narrative Resulting Agency Comment Spec In Lab Young Coronado MD IMMUNOLOGY ORDERABLE S Performing Organization Address City/[facility]/ZIP Co de Phone Number [facility] [place] [address] * (ABNORMAL) Carlie-St Virus Antibodies (02/06/2020 2:48 PM EDT) EBV (VCA) IgG Ab Pos(A) Neg [facility] EBV (VCA) IgM Ab Neg Neg [facility] EBNA Antibodies Pos(A) Neg [facility] [...] MD IMMUNOLOGY ORDERABLE S Performing Organization Address City/[facility]/ZIP Co de Phone Number [facility] [place] [address] * (ABNORMAL) HSV 1 and 2 IgG [...] Organization Address [facility] Co de Phone Number [facility] [place] [address] * HIV Screen, 4th Generation (MC/CGP/APD/NLH) (02/06/2020 [...] Organization Address [facility]/ZIP Co de Phone Number [facility] [place] [address] * Syphilis Screening Antibody with reflex RPR (02/06/2020 2:48 PM EDT) Pathologist [facility] Syphilis IgG/IgM Negative Negative [facility] Blood specimen (specimen) 02/06/2020 2:48 PM EDT 02/06/2020 2:57 PM EDT Narrative Resulting Agency Comment Spec In Lab Young Coronado MD CHEMISTRY ORDERABLES Performing Organization Address [facility] Co de Phone Number [facility] [place] [address] * (ABNORMAL) Toxoplasma Antibody, IgG (02/06/2020 2:48 PM EDT) Toxoplasma Antibody IgG Positive( A) Negative [facility] Blood specimen (specimen) 02/06/2020 2:48 PM EDT 02/07/2020 7:33 AM EDT Narrative Resulting Agency Comment Spec In Lab Young Coronado MD IMMUNOLOGY ORDERABLE S Performing Organization Address [facility]/ZIP Co de Phone Number [facility] [place] [address] * Varicella zoster Antibody, IgG (02/06/2020 2:48 PM EDT) Varicella Zoster Antibody IgG Pos [facility] Blood specimen (specimen) 02/06/2020 2:48 PM EDT 02/07/2020 7:33 AM EDT Narrative Resulting Agency Comment Spec In Lab Young Coronado MD IMMUNOLOGY ORDERABLE S Performing Organization Address [facility] de Phone Number [facility] [place] [address] * (ABNORMAL) Fructosamine (02/06/2020 2:48 PM EDT) Pathologist [facility] Fructosamine (AUGUST) 556(H) 200 - 285 mcmol/L [facility] Comment: Test Performed by: [facility] [place] [address] Business Development Coordinator: Marquise Dobbs M.D. Ph.D.; CLIA# [id number] Blood specimen (specimen) 02/06/2020 2:48 PM EDT 02/06/2020 3:59 PM EDT Narrative Resulting Agency Comment Spec In Lab Young Coronado MD LAB SEND OUT ORDERAB LES Performing Organization Address [facility] Co de Phone Number [facility] [place] [address] * (ABNORMAL) Hemoglobin A1c (02/06/2020 2:48 PM [...] into estimated average glucose values. ??Diabetes Care 2008:31(8):6224-7079. Blood specimen (specimen) 02/06/2020 2:48 PM EDT 02/06/2020 2:57 PM EDT Narrative Resulting Agency Comment Spec In Lab Young Coronado MD CHEMISTRY ORDERABLES [facility] [place] [address] * PSA (Ultrasensitive) (02/06/2020 2:48 PM EDT) [...] Ramirez Daily CHEMISTRY ORDERABLES Performing Organization Address City/[facility] Co de Phone Number [facility] [place] [address] * (ABNORMAL) C-peptide (02/06/2020 2:48 PM EDT) C-Peptide 10.8(H) 0.8 - 5.2 ng/mL [facility] Blood specimen (specimen) 02/06/2020 2:48 PM EDT 02/06/2020 2:57 PM EDT Narrative Resulting Agency Comment Spec In Lab Young Ramirez Daily CHEMISTRY ORDERABLES Performing Organization Address City/[facility] Co de Phone Number [facility] [place] [address] documented in this encounter Visit Diagnoses Diagnosis Coronary artery disease, angina presence unspecified, unspecified vessel or lesion type, unspecified whether upper [place] or transplanted heart Benign prostatic hyperplasia, unspecified whether lower urinary tract symptoms present Diabetes mellitus due to underlying condition with diabetic nephropathy, 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
--- OUTSIDE RECORDS SUMMARY | 2024-02-24 16:59 | XMS_ITS | Encounter Summary ---
[place] [address] Care Team Providers Care Oil Scout Name Role Phone Jarad Keller DNP Primary Care Provider [phone] Encounter Details Date Type Department Care Team (Late st Contact Info) Description 01/16/2020 Telephone [place] [address] Sherie Mccallum, [facility] [place] [address] Social History Tobacco Use Types Packs/Day Years [...] intake. Left message for him to call consumer loan underwriter back. Will await return call. documented in this encounter Plan of Treatment Not on file documented as of this encounter Visit Diagnoses Not on filedocumented in this encounter Care Teams Oil Scout Relationship Specialty Start Date End Date Jarad Keller DNP PCP - General Family Medicine 06/05/18 02/09/21 documented as of this encounter
--- OUTSIDE RECORDS SUMMARY | 2024-02-24 16:59 | XMS_ITS | Encounter Summary ---
[place] [address] Care Team Providers Care Parts Casting Machine Operator Name Role Phone Jarad Keller DNP Primary Care Provider [phone] Encounter Details Date Type Department Care Team (Late st Contact Info) Description 02/06/2020 2:30 PM EDT Office Visit [place] [address] Encounter for pre-transplant evaluation for kidney transplant [...] this encounter Progress Notes * Nikki Castillo, [facility] - 02/06/2020 2:30 PM EDT Transplant Pharmacy [...] mouth daily. ??? OneTouch Verio Flex meter [facility] TEST BLOOD GLUCOSE THREE TIMES A DAY ??? insulin needles, disposable, 31 gauge x 3/16 Needle Inject 1 each subcutaneously 4 times daily. ICD 10 Code: E11.65 ??? sub-q insulin device, 20 unit (V-GO 20) Device 1 each by [facility].(Non-Drug; Combo Route) route daily. Insulin pump to infuse insulin continuously. Change daily ??? blood sugar diagnostic strips Strip Use to check blood sugar 3 times daily No current [facility]-ordered facility-administered medications on file. Assessment/plan: 1. There [...] Adherence scale. 3. The need for terminal make up operator medication and potential adjustment of medications post-transplant [...] questions NIKKI CASTILLO RPH Transplant pharmacist Pager [phone] documented in this encounter Plan of Treatment Not on file documented as of this encounter Visit Diagnoses Diagnosis Encounter for pre-transplant evaluation for kidney transplant documented in this encounter Care Teams Parts Casting Machine Operator Relationship Specialty Start Date End Date Jarad Keller DNP PCP - General Family Medicine 06/05/18 02/09/21 documented as of this encounter
--- OUTSIDE RECORDS SUMMARY | 2024-02-24 16:59 | XMS_ITS | Encounter Summary ---
[place] [address] Care Team Providers Care Biomedical Specialist Name Role Phone Jarad Keller DNP Primary Care Provider [phone] Encounter Details Date Type Department Care Team (Late st Contact Info) Description 02/06/2020 12:30 PM EDT Office Visit [place] [address] Awaiting organ transplant status Social History Tobacco [...] Hernández - 02/06/2020 12:30 PM EDT Transplant Mammography Technologist Note: Met with patient during the Kidney Class appointment to review medical and pharmacy benefits for transplant services. He is covered by Medicare A, B, and D [facility] as well as [place] Medicaid. He [...] AB Secondary Plan: [place] Medicaid Pharmacy Carrier: [email or web address] D Phone: Drug Dose/Form # for [...] status documented in this encounter Care Teams Biomedical Specialist Relationship Specialty Start Date End Date Jarad Keller DNP PCP - General Family Medicine 06/05/18 02/09/21 documented as of this encounter
--- OUTSIDE RECORDS SUMMARY | 2024-02-24 16:59 | XMS_ITS | Encounter Summary ---
Author Organization [facility] [place] [place] [address] Care Team Providers Care Motor Man Name Role Phone Jarad Keller DNP Primary Care Provider [phone] Reason for Visit * Reason Onset Date Comments Follow-up 05/08/2020 Encounter Details Date Type Department Care Team (Late st Contact Info) Description 05/08/2020 Telephone [place] [id number] Harmeet Arvizu MD [facility] [place] [address] Follow-up Social History Tobacco Use Types Packs/Day [...] call and schedule follow up from recent [facility] visit for Dr Arvizu:Follow up retina [...] on filedocumented in this encounter Care Teams Motor Man Relationship Specialty Start Date End Date Jarad Keller DNP PCP - General Family Medicine 06/05/18 02/09/21 documented as of this encounter
--- OUTSIDE RECORDS SUMMARY | 2024-02-24 16:59 | XMS_ITS | Encounter Summary ---
[place] [address] Care Team Providers Care Air Support Control Officer Name Role Phone Jarad Keller DNP Primary Care Provider [phone] Reason for Visit * Reason Onset Date Comments Follow-up 10/15/2019 Encounter Details Date Type Department Care Team (Late st Contact Info) Description 10/15/2019 Tele[place] [address] Harmeet Arvizu MD [facility] [place] [address] Follow-up Social History Tobacco Use Types Packs/Day [...] filedocumented in this encounter Care Teams Air Support Control Officer Relationship Specialty Start Date End Date Jarad Keller DNP PCP - General Family Medicine 06/05/18 02/09/21 documented as of this encounter
--- OUTSIDE RECORDS SUMMARY | 2024-02-24 16:59 | XMS_ITS | Encounter Summary ---
Author Organization [facility] [place] [place] [address] Care Team Providers Care Fly Rail Operator Name Role Phone Jarad Keller DANIKA Primary Care Provider [phone] Encounter Details Date Type Department Care Team (Latest Contact Info) Description 08/29/2019 2:30 PM EDT TH Visit (TeleHealth) [place] [address] Ceasar Roy MD [facility] [place] [address] Type 2 diabetes mellitus with hyperglycemia, with [...] Since that time, he was admitted [facility] July 2019 for fall leading to significant head/spine injuries. He was discharged a few weeks ago and has been at a rehab facility in [facility] where he was at the time [...] unit (V-GO 20) Device, 1 each by [facility] [...] for repeat telehealth visit Ceasar Roy MD Rn Anesthetistfood truck caterer Endocrinology Section [facility] documented in this encounter Plan of Treatment Not on file documented as of this encounter Visit Diagnoses Diagnosis Type 2 diabetes mellitus with hyperglycemia, with long-term current use of insulin documented in this encounter Care Teams Fly Rail Operator Relationship Specialty Start Date End Date Jarad Keller DNP PCP - General Family Medicine 06/05/18 02/09/21 documented as of this encounter
--- OUTSIDE RECORDS SUMMARY | 2024-02-24 16:59 | XMS_ITS | Encounter Summary ---
Author Organization Formerly [facility] [place] [address] Care Team Providers Care Media Reporter Name Role Phone Jarad Keller DANIKA Primary Care Provider [phone] Reason for Visit * Reason Comments Eye Problem Procedure * Consultation (Routine) - Closed Specialty Diagnoses / Procedures Referred By Puneet hallman Referred To Contact Ophthalmology Diagnoses dme os Rylan Carrero M, OD [address] [place] [address] Harmeet Arvizu MD [facility] [place] [address] Referral ID Status Reason Start Date Expiration Date V isits Requested Visits Authorized [id number] Closed Consult, Test & Treat 04/04/2019 04/03/2020 1 1 Encounter Details Date Type Department Care Team (Latest Contact Info) Description 10/12/2019 2:30 PM EDT Office [place] [address] Harmeet Arvizu MD [facility] [address] Proliferative diabetic retinopathy of left [...] Normal and Not Expected side effects: Call [phone] (Eye Clinic) DAY or NIGHT, HOLIDAY or [...] visual impairment category Reestablishing care here at [facility]. Previous CBC patient last seen 2013. Since then [place] been in [place] with retina care on and off. OD: [...] loss due to brain/head injury. Hospitalization in [place]. Some note available in scan docs. Eylea [...] category documented in this encounter Care Teams Media Reporter Relationship Specialty Start Date End Date Jarad Keller DNP PCP - General Family Medicine 06/05/18 02/09/21 documented as of this encounter
--- OUTSIDE RECORDS SUMMARY | 2024-02-24 16:59 | XMS_ITS | Encounter Summary ---
Author Organization [facility] [place] [address] Care Team Providers Care Deckhand Tuna Boat Name Role Phone Jarad Keller DNP Primary Care Provider [phone] Reason for Visit * Reason Comments Procedure Encounter Details Date Type Department Care Team (Latest Contact Info) Description 01/04/2020 6:15 PM EDT Procedure [place] [address] Harmeet Arvizu MD [facility] [place] [address] Proliferative diabetic retinopathy of left eye with [...] Normal and Not Expected side effects: Call [phone] (Eye Clinic) DAY or NIGHT, HOLIDAY or WEEKEND if you experience any of the following: = Severe, increasing pain in the eye = Significant, dramatic vision loss = Redness on and around the eye that gets worse, not better = Severe light sensitivity Call [phone] or go to the Emergency room immediately [...] of Eylea 2.0 mg left eye Assist: Terra Cotta Mason Anesthesia: Topical Proparacaine and topical 4% Lidocaine Complications: None Procedure: The patient was taken to the minor treatment suite where the patient was reidentified using name and birthdate as critical identifiers. The correct eye as the operative site was reidentified by a preplaced site maria r, and the consent form was actively reviewed by the volleyball assistant coach and the surgeon. The left eye was prepped including instillation of Betadine 5% into the left cul de sac for 5 minutes, facial prep with ophthalmic Betadine and placement of a lid speculum. The Surgeon performed hand washing preoperatively, used gloves, and wore a face mask or used no talking technique during the procedudre, as did the surgical appliances salesperson. After topical anesthesia of the injection site [...] call the Eye Clinic or Eye Doctor concession manager, should they develop pain the treated [...] Eye documented in this encounter Care Teams Deckhand Tuna Boat Relationship Specialty Start Date End Date Jarad Keller DNP PCP - General Family Medicine 06/05/18 02/09/21 documented as of this encounter
--- OUTSIDE RECORDS SUMMARY | 2024-02-24 16:59 | XMS_ITS | Encounter Summary ---
Author Organization [facility] [place] [address] Care Team Providers Care Staff Midwife Name Role Phone Jarad Keller DNP Primary Care Provider [phone] Reason for Visit * Reason Comments Procedure Eylea OS #2/3 Encounter Details Date Type Department Care Team (Latest Contact Info) Description 02/15/2020 2:00 PM EDT Procedure [place] [address] Harmeet Arvizu MD [facility] [place] [address] Proliferative diabetic retinopathy of left eye with [...] about driving: We always recommend having a paratransit driver on the day you get an [...] Normal and Not Expected side effects: Call [phone] (Eye Clinic) DAY or NIGHT, HOLIDAY or WEEKEND if you experience any of the following: = Severe, increasing pain in the eye = Significant, dramatic vision loss = Redness on and around the eye that gets worse, not better = Severe light sensitivity Call [phone] or go to the Emergency room immediately [...] of Eylea 2.0 mg left eye Assist: Book Binder Anesthesia: Topical Proparacaine and topical 4% Lidocaine [...] call the Eye Clinic or Eye Doctor director aeronautics commission, should they develop pain the treated eye, [...] Eye documented in this encounter Care Teams Staff Midwife Relationship Specialty Start Date End Date Jarad Keller DNP PCP - General Family Medicine 06/05/18 02/09/21 documented as of this encounter
--- OUTSIDE RECORDS SUMMARY | 2024-02-24 16:59 | XMS_ITS | Encounter Summary ---
Author Organization [facility] [place] [address] Care Team Providers Care Benefits Consultant Name Role Phone Jarad Keller DNP Primary Care Provider [phone] Encounter Details Date Type Department Care Team (Late st Contact Info) Description 08/16/2019 12:05 AM EDT Ancillary Procedure Radiology Library at [facility] [place] [address] Jarad Keller DNP [address] [place] [address] Social History Tobacco Use Types [...] DX Chest (08/16/2019 12:05 AM EDT) Narrative ALEXANDER SIMMONS - 08/17/2019 8:02 AM EDT This exam is auto-finalizing. It's purpose is for storage only. Jarad Keller DNP IMG FILM LIBRARY OR DERABLES Performing Organization Address City/State/[facility] Co de Phone Number [place], [place] documented in this encounter Visit Diagnoses Not on filedocumented in this encounter Care Teams Benefits Consultant Relationship Specialty Start Date End Date Jarad Keller DNP PCP - General Family Medicine 06/05/18 02/09/21 documented as of this encounter
--- OUTSIDE RECORDS SUMMARY | 2024-02-24 16:59 | XMS_ITS | Encounter Summary ---
[place] [address] Care Team Providers Care Mud Plant Operator Name Role Phone Jarad Keller DNP Primary Care Provider [phone] Encounter Details Date Type Department Care Team (Late st Contact Info) Description 08/23/2019 [place] [phone] Mariajose Mitchell Social History Tobacco Use Types [...] at a local hospital. CT done at [place] on 08/12. Please review CT in edh, does the patient need further f/u or a TOV scheduled with you? Thank you, Mariajose * Telephone Encounter - Mariajose Mitchell - 08/23/2019 2:33 PM EDT Pt scheduled for f/u 08/16 canceled due to being inpatient at local hospital. Called and pt had CT done at [place]. for CT Head from 08/12 to be pushed for review by BCB or DPS. Follow-up will be scheduled in the Neurosurgical Clinic in 2 weeks. Follow-up imaging ordered: CT Head documented in this encounter Plan of Treatment Not on file documented as of this encounter Visit Diagnoses Not on filedocumented in this encounter Care Teams Mud Plant Operator Relationship Specialty Start Date End Date Jarad Keller DNP PCP - General Family Medicine 06/05/18 02/09/21 documented as of this encounter
--- OUTSIDE RECORDS SUMMARY | 2024-02-24 16:59 | XMS_ITS | Encounter Summary ---
[place] [address] Care Team Providers Care Senior Financial Accountant Name Role Phone Jarad Keller DNP Primary Care Provider [phone] Encounter Details Date Type Department Care Team (Late st Contact Info) Description 02/01/2020 Notes Only [place] [address] Simi Meek MSW Social History Tobacco Use [...] Country do you reside in? [place] 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 Current Living Situation: Rent [...] he was moving when he met to [place]. He came back 2 years ago. He is not part of any synagogue or other social groups. I really don't [...] *No Product type* / Patient also has [place] Medicaid. Financial Status: Are bills up to date? Electric, water, oil, etc. are paid by the $1 million trust from the [facility] for his . Can you afford your [...] big. Living donor fund explained? Yes. Transportation: [facility] ([facility] to all of his appointments. Patient's understanding of their diagnosis: He says his kidneys have failed. Barriers to treatment plan: None noted at this time. AUDIO VISUAL PROJECT MANAGER plan: Worker to continue to follow Maurice if the team decides to move forward with listing Maurice for transplant. GAURI VERNON Transplant Sap Solution Manager Consultant Pager [phone] documented in this encounter Plan of Treatment Not on file documented as of this encounter Visit Diagnoses Not on filedocumented in this encounter Care Teams Senior Financial Accountant Relationship Specialty Start Date End Date Jarad Keller DNP PCP - General Family Medicine 06/05/18 02/09/21 documented as of this encounter
--- OUTSIDE RECORDS SUMMARY | 2024-02-24 16:59 | XMS_ITS | Encounter Summary ---
[place] [address] Care Team Providers Care Assistant Buyer Name Role Phone Jarad Keller DNP Primary Care Provider [phone] Encounter Details Date Type Department Care Team (Late st Contact Info) Description 08/16/2019 Telephone [place] [phone] Perla Tovar Social History Tobacco Use Types [...] Per TACS SIMONE Pressley contacted Yohannes at [facility] in response to phone note by Rosa from Orthopedics dated 08/16/2019. It has been offered patient go to [facility] on Tuesday August 20, 2019 to complete a CXR and SIMONE Pressley would then call with results and plan advisement. Yohannes has agreed to this proposal and the appointments for tomorrow 08/17/2019 have been canceled. Yohannes @ [facility] TEL: [phone] FAX [phone] documented in this encounter Plan of Treatment Not on file documented as of this encounter Visit Diagnoses Not on filedocumented in this encounter Care Teams Assistant Buyer Relationship Specialty Start Date End Date Jarad Keller DNP PCP - General Family Medicine 06/05/18 02/09/21 documented as of this encounter
--- OUTSIDE RECORDS SUMMARY | 2024-02-24 16:59 | XMS_ITS | Encounter Summary ---
Author Organization [facility] [place] [address] Care Team Providers Care Paper Guillotine Operator Name Role Phone Jarad Keller DNP Primary Care Provider [phone] Encounter Details Date Type Department Care Team (Late st Contact Info) Description 08/07/2019 12:10 AM EDT Ancillary Procedure Radiology Library at [facility] [place] [address] Jarad Keller DNP [address] [place] [address] Social History Tobacco Use Types [...] DX Chest (08/07/2019 12:10 AM EDT) Narrative ALEXANDER SIMMONS - 08/17/2019 8:02 AM EDT This exam is auto-finalizing. It's purpose is for storage only. Jarad Keller DNP IMG FILM LIBRARY OR DERABLES Performing Organization Address City/State/[facility] Co de Phone Number [place], [place] documented in this encounter Visit Diagnoses Not on filedocumented in this encounter Care Teams Paper Guillotine Operator Relationship Specialty Start Date End Date Jarad Keller DNP PCP - General Family Medicine 06/05/18 02/09/21 documented as of this encounter
--- OUTSIDE RECORDS SUMMARY | 2024-02-24 16:59 | XMS_ITS | Encounter Summary ---
Author Organization [facility] [address] Care Team Providers Care Vet Assistant Name Role Phone Jarad Keller DNP Primary Care Provider [phone] Encounter Details Date Type Department Care Team (Late st Contact Info) Description 08/07/2019 Ancillary Procedure Radiology Library at [facility] [place] [address] Jarad Keller DNP [address] [place] [address] Social History Tobacco Use Types [...] DX Chest (08/07/2019 12:00 AM EDT) Narrative TROY - 08/17/2019 8:00 AM EDT This exam is auto-finalizing. It's purpose is for storage only. Jarad Keller DNP IMG FILM LIBRARY OR DERABLES Performing Organization Address City/State/[facility] Co de Phone Number [place], [place] documented in this encounter Visit Diagnoses Not on filedocumented in this encounter Care Teams Vet Assistant Relationship Specialty Start Date End Date Jarad Keller DNP PCP - General Family Medicine 06/05/18 02/09/21 documented as of this encounter
--- OUTSIDE RECORDS SUMMARY | 2024-02-24 16:59 | XMS_ITS | Encounter Summary ---
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 This [...] category documented in this encounter Care Teams Sound Art Instructor Relationship Specialty Start Date End Date Jarad Keller DNP PCP - General Family Medicine 06/05/18 02/09/21 documented as of this encounter
--- OUTSIDE RECORDS SUMMARY | 2024-02-24 16:59 | XMS_ITS | Encounter Summary ---
Author Organization [facility] [place] [address] Care Team Providers Care Navigating Officer Name Role Phone Jarad Keller DNP Primary Care Provider [phone] Encounter Details Date Type Department Care Team (Late st Contact Info) Description 08/07/2019 12:05 AM EDT Ancillary Procedure Radiology Library at [facility] [place] [address] Jarad Keller DNP [address] [place] [address] Social History Tobacco Use Types [...] City/State/[facility] Co de Phone Number [place], [place] documented in this encounter Visit Diagnoses Not on filedocumented in this encounter Care Teams Navigating Officer Relationship Specialty Start Date End Date Jarad Keller DNP PCP - General Family Medicine 06/05/18 02/09/21 documented as of this encounter
--- OUTSIDE RECORDS SUMMARY | 2024-02-24 16:59 | XMS_ITS | Encounter Summary ---
[place] [address] Care Team Providers Care Territory Business Manager Name Role Phone Jarad Keller DANIKA Primary Care Provider [phone] Encounter Details Date Type Department Care Team (Late st Contact Info) Description 08/16/2019 Orders Only [place] [address] Jacinta Pressley, [place] [facility] [place] [address] Closed fracture of multiple ribs of right [...] encounter documented in this encounter Care Teams Territory Business Manager Relationship Specialty Start Date End Date Jarad Keller DNP PCP - General Family Medicine 06/05/18 02/09/21 documented as of this encounter
--- OUTSIDE RECORDS SUMMARY | 2024-02-24 16:59 | XMS_ITS | Encounter Summary ---
[place] [address] Care Team Providers Care Certified Court/Medical Interpreter Name Role Phone Jarad Keller DNP Primary Care Provider [phone] Encounter Details Date Type Department Care Team ([facility] Contact Info) Description 09/14/2019 Telephone [place] [address] Cherelle Sims LPN Social History Tobacco Use [...] Received message from patient stating that [facility] in [place], [place] does not have his prescriptions for VGo insulin pump, or his insulin. He would like this done today! Last visit was via , but noted scripts had gone to [facility] in [place], [place]. I called [facility], and they state theydo not stock the VGo insulin pump; that would have to come from a Durable Medical Equipment supplier (DME). Patient may require long acting insulin until pump can be obtained, all scripts to go to [facility] in [place], [place]. *At this time, patient is not aware of DME need for pump. Note forwarded to Dr. Roy documented in this encounter Plan of Treatment Not on file documented as of this encounter Visit Diagnoses Not on filedocumented in this encounter Care Teams Certified Court/Medical Interpreter Relationship Specialty Start Date End Date Jarad Keller DNP PCP - General Family Medicine 06/05/18 02/09/21 documented as of this encounter
--- OUTSIDE RECORDS SUMMARY | 2024-02-24 16:59 | XMS_ITS | Encounter Summary ---
[place] [address] Care Team Providers Care Plastic Surgery Coordinator Name Role Phone Jarad Keller DNP Primary Care Provider [phone] Reason for Visit * Reason Onset Date Comments Follow-up 08/07/2019 Encounter Details Date Type Department Care Team (Late st Contact Info) Description 08/07/2019 Telephone [place] [address] Louis Vergara MD [facility] [place] [address] Follow-up Social History Tobacco Use Types Packs/Day [...] 11:00 AM EDT Yohannes called back from [facility] regarding the appointments for tomorrow: He [...] Lavern Govea Yohannes can be reached at [facility] at [phone] * Telephone Encounter - Cheli Guzman - [...] on Maurice, left message for Yohannes at [facility]. She can be patchedover to [place] when she calls back. * Telephone Encounter - Cheli Guzman - 08/07/2019 3:[address] Vergara advised ok for telephone visit. I called back to arrange the appointment with Dr. Vergara this Tuesday for a telephone office visit. Yohannes at [facility] was going to give me the phone number in his room to call him when she noticed he was transported acutely this morning 08/07/19 to [place]. She said he may return to them if he improves and she will obtain a better number to call him at ifhis cell phone is not getting good hospital receptionist in the building. She will return call to us on . Yohannes from [facility], // ?? * Telephone Encounter - [...] the XR orders to be obtained at [facility]. They will send us the images and reports. Yohannes from [facility], // In basket message sent to Dr. Vergara to advise documented in this encounter Plan of Treatment Not on file documented as of this encounter Visit Diagnoses Not on filedocumented in this encounter Care Teams Plastic Surgery Coordinator Relationship Specialty Start Date End Date Jarad Keller DNP PCP - General Family Medicine 06/05/18 02/09/21 documented as of this encounter
--- OUTSIDE RECORDS SUMMARY | 2024-02-24 16:59 | XMS_ITS | Encounter Summary ---
[place] [address] Care Team Providers Care Head Refrigerating Engineer Name Role Phone Jarad Keller DNP Primary Care Provider [phone] Encounter Details Date Type Department Care Team (Late st Contact Info) Description 05/16/2020 Telephone [place] [address] [facility] [place] [address] Social History Tobacco Use Types Packs/Day Years [...] the phone regarding weight loss progress. During race and sports book writer's initial encounter with pt in January 2020 nutrition-related goals for transplant discussed, including weightloss given obese class II and tighter blood glucose control. Prior to speaking with Maurice this race and sports book writer obtained most recent EDW from dialysis [...] not differed much from diet reported to race and sports book writer in January. Pt states that he [...] - pt states he is working with stable attendant to get another insulin pump to aid [...] with pt and dialysis RD. Informed Maurice race and sports book writer to check in with him in ~3 mo; with a weight loss goal achieved at this time of 5% / 10#. Maurice agreeable to plan. Informed Maurice race and sports book writer available at anytime in the meantime to further assist him with nutrition-related goals for transplant. Thank you, Cheryl Presley RD documented in this encounter Plan of Treatment Not on file documented as of this encounter Visit Diagnoses Not on filedocumented in this encounter Care Teams Head Refrigerating Engineer Relationship Specialty Start Date End Date Jarad Keller DNP PCP - General Family Medicine 06/05/18 02/09/21 documented as of this encounter
--- OUTSIDE RECORDS SUMMARY | 2024-02-24 16:59 | XMS_ITS | Encounter Summary ---
Author Organization [facility] [place] [address] Care Team Providers Care Inspector Scales Name Role Phone Jarad Keller DNP Primary Care Provider [phone] Reason for Visit * Reason Onset Date Comments Medication Refill 09/17/2019 Encounter Details Date Type Department Care Team (Late st Contact Info) Description 09/17/2019 Refill [place] [address] Ceasar Roy MD [facility] [place] [address] Social History Tobacco Use Types Packs/Day Years [...] filedocumented in this encounter Care Teams Inspector Scales Relationship Specialty Start Date End Date Jarad Keller DNP PCP - General Family Medicine 06/05/18 02/09/21 documented as of this encounter
--- OUTSIDE RECORDS SUMMARY | 2024-02-24 16:59 | XMS_ITS | Encounter Summary ---
Author Organization [facility] [place] [address] Care Team Providers Care Network Operations Center Technician Name Role Phone Jarad Keller DNP Primary Care Provider [phone] Encounter Details Date Type Department Care Team (Late st Contact Info) Description 08/13/2019 Ancillary Procedure Radiology Library at [facility] [place] [address] Lavern Velez APRN [place] [address] Social History Tobacco Use Types Packs/Day Years [...] IMG FILM LIBRARY ORDERABLES Performing Organization Address City/State/[facility] Co de Phone Number [place], [place] documented in this encounter Visit Diagnoses Not on filedocumented in this encounter Care Teams Network Operations Center Technician Relationship Specialty Start Date End Date Jarad Keller DNP PCP - General Family Medicine 06/05/18 02/09/21 documented as of this encounter
--- OUTSIDE RECORDS SUMMARY | 2024-02-24 16:59 | XMS_ITS | Encounter Summary ---
[place] [address] Care Team Providers Care Washer Operator Name Role Phone Jarad Keller DNP Primary Care Provider [phone] Encounter Details Date Type Department Care Team (Late st Contact Info) Description 02/06/2020 3:00 PM EDT Office Visit [place] [address] Encounter for pre-transplant evaluation for kidney transplant [...] transplant documented in this encounter Care Teams Washer Operator Relationship Specialty Start Date End Date Jarad Keller DNP PCP - General Family Medicine 06/05/18 02/09/21 documented as of this encounter
--- OUTSIDE RECORDS SUMMARY | 2024-02-24 16:59 | XMS_ITS | Encounter Summary ---
Author Organization [facility] [place] [place] [address] Care Team Providers Care Membership Advisor Name Role Phone Jarad Keller DNP Primary Care Provider [phone] Reason for Visit * Reason Onset Date Comments Medication Refill 10/01/2019 Encounter Details Date Type Department Care Team (Late st Contact Info) Description 10/01/2019 Refill [place] [address] Ceasar Roy MD [facility] [place] [address] Social History Tobacco Use Types Packs/Day Years [...] on filedocumented in this encounter Care Teams Membership Advisor Relationship Specialty Start Date End Date Jarad Keller DNP PCP - General Family Medicine 06/05/18 02/09/21 documented as of this encounter
--- OUTSIDE RECORDS SUMMARY | 2024-02-24 16:59 | XMS_ITS | Encounter Summary ---
[place] [address] Care Team Providers Care Physical Security Engineer Name Role Phone Jarad Keller DNP Primary Care Provider [phone] Encounter Details Date Type Department Care Team (Late st Contact Info) Description 02/06/2020 Orders Only [place] [address] Daily, Young Ramirez MD [facility] [place] [address] Coronary artery disease, angina presence unspecified, unspecified vessel or lesion type, unspecified whether prairie band or transplanted heart; Benign prostatic hyperplasia, unspecified [...] Ill C-Peptide 10.8(H) 0.8 - 5.2 ng/mL [facility] Blood specimen (specimen) 02/06/2020 2:48 PM EDT 02/06/2020 2:57 PM EDT Narrative Resulting Agency Comment Spec In Lab Young Coroando MD CHEMISTRY ORDERABLES Performing Organization Address [facility] Co de Phone Number [facility] [place] [address] * PSA (Ultrasensitive) (02/06/2020 2:48 PM EDT) [facility] Prostate Specific Antigen (Ultrasensitive ) 0.57 0.00 - 4.00 ng/mL [facility] Comment: PLEASE NOTE: The above reference interval is intended for healthy males with an intact prostate. Values within this reference interval may indicate recurrence in men who have undergone radical prostatectomy. Blood specimen (specimen) 02/06/2020 2:48 PM EDT 02/06/2020 2:57 PM EDT Narrative Resulting Agency Comment Spec In Lab Young Coronado MD CHEMISTRY ORDERABLES Performing Organization Address City/[facility] Co de Phone Number [facility] [place] [address] * (ABNORMAL) Hemoglobin A1c (02/06/2020 2:48 PM EDT) Pathologist [facility] Hemoglobin A1c 10.0(H) 4.3 - 5.6 % [facility] Comment: Reference Range: 4.3 [...] 1, S67-74 Estimated Average Glucose 239 mg/dL [facility] Comment: eAG equivalents for [...] into estimated average glucose values. ??Diabetes Care 2008:31(8):0242-2780. Blood specimen (specimen) 02/06/2020 2:48 PM EDT 02/06/2020 2:57 PM EDT Narrative Resulting Agency Comment Spec In Lab Young Coronado MD CHEMISTRY ORDERABLES [facility] [place] [address] * (ABNORMAL) Fructosamine (02/06/2020 2:48 PM EDT) Fructosamine (AUGUST) 556(H) 200 - 285 mcmol/L [facility] Comment: Test Performed by: [facility] - [address] [address] Lost And Found Clerk: Marquise Dobbs M.D. Ph.D.; CLIA# [id number] Blood specimen (specimen) 02/06/2020 2:48 PM EDT 02/06/2020 3:59 PM EDT Narrative Resulting Agency Comment Spec In Lab Young Coronado MD LAB SEND OUT ORDERAB LES Performing Organization Address [facility] Co de Phone Number [facility] [place] [address] * Varicella zoster Antibody, IgG (02/06/2020 2:48 PM EDT) Varicella Zoster Antibody IgG Pos [facility] Blood specimen (specimen) 02/06/2020 2:48 PM EDT 02/07/2020 7:33 AM EDT Narrative Resulting Agency Comment Spec In Lab Young Coronado MD IMMUNOLOGY ORDERABLE S Performing Organization Address [facility] de Phone Number [facility] [place] [address] * (ABNORMAL) Toxoplasma Antibody, IgG (02/06/2020 2:48 PM EDT) Toxoplasma Antibody IgG Positive( A) Negative [facility] Blood specimen (specimen) 02/06/2020 2:48 PM EDT 02/07/2020 7:33 AM EDT Narrative Resulting Agency Comment Spec In Lab Young Coronado MD IMMUNOLOGY ORDERABLE S Performing Organization Address [facility] de Phone Number [facility] [place] [address] * Syphilis Screening Antibody with reflex RPR (02/06/2020 2:48 PM EDT) Syphilis IgG/IgM Negative Negative [facility] Blood specimen (specimen) 02/06/2020 2:48 PM EDT 02/06/2020 2:57 PM EDT Narrative Resulting Agency Comment Spec In Lab Young Coronado MD CHEMISTRY ORDERABLES Performing Organization Address [facility]/ZIP Co de Phone Number [facility] [place] [address] * HIV Screen, 4th Generation ([facility]/CGP/APD/NLH) (02/06/2020 2:48 PM EDT) HIV Ab/Ag Screen Negative Negative [facility] Comment: This 4th Generation [...] Coronado MD CHEMISTRY ORDERABLES Performing Organization Address [facility] Co de Phone Number [facility] [place] [address] * (ABNORMAL) HSV 1 and 2 IgG Antibodies (02/06/2020 2:48 PM EDT) HSV Type 1 Ab, IgG Pos(A) Neg [facility] HSV Type 2 Ab, IgG Pos(A) Neg [facility] Blood specimen (specimen) 02/06/2020 2:48 PM EDT 02/07/2020 7:33 AM EDT Narrative Resulting Agency Comment Spec In Lab Young Coronado MD IMMUNOLOGY ORDERABLE S Performing Organization Address City/[facility]/ZIP Co de Phone Number [facility] [place] [address] * (ABNORMAL) Carlie-St Virus Antibodies (02/06/2020 2:48 PM EDT) EBV (VCA) IgG Ab Pos(A) Neg [facility] EBV (VCA) IgM Ab Neg Neg [facility] EBNA Antibodies Pos(A) Neg [facility] EBV Interpretation Results suggest past infection. [facility] Comment: In most populations, [...] MD IMMUNOLOGY ORDERABLE S Performing Organization Address [facility]/ZIP Co de Phone Number [facility] [place] [address] * CMV Antibody, IgG (02/06/2020 2:48 PM EDT) CMV IgG Negative Negative [facility] Blood specimen (specimen) 02/06/2020 2:48 PM EDT 02/07/2020 7:33 AM EDT Narrative Resulting Agency Comment Spec In Lab Young Coronado MD IMMUNOLOGY ORDERABLE S Performing Organization Address [facility] Co de Phone Number [facility] [place] [address] * Hepatitis C Antibody (02/06/2020 2:48 PM EDT) Hepatitis C Antibody Negative Negative [facility] Blood specimen (specimen) 02/06/2020 2:48 PM EDT 02/06/2020 2:57 PM EDT Narrative Resulting Agency Comment Spec In Lab Young Coronado MD CHEMISTRY ORDERABLES Performing Organization Address City/[facility] Co de Phone Number [facility] [place] [address] * Hepatitis B Surface Antigen (02/06/2020 2:48 PM EDT) Hepatitis B Surface Antigen Negative Negative [facility] Blood specimen (specimen) 02/06/2020 2:48 PM EDT 02/06/2020 2:57 PM EDT Narrative Resulting Agency Comment Spec In Lab Young Ramirez Daily CHEMISTRY ORDERABLES Performing Organization Address City/[facility]/ZIP Co de Phone Number [facility] [place] [address] * Hepatitis B Surface Antibody (02/06/2020 2:48 PM EDT) Pathologist [facility] Hepatitis B Surface Antibody, Quantitative 52.5 IU/L [facility] Comment: HepB Surface Ab [...] Coronado MD CHEMISTRY ORDERABLES Performing Organization Address [facility] Co de Phone Number [facility] [place] [address] * Hepatitis B Core Antibody, IgM (02/06/2020 2:48 PM EDT) Hepatitis B Core IgM Negative Negative [facility] Blood specimen (specimen) 02/06/2020 2:48 PM EDT 02/06/2020 2:57 PM EDT Narrative Resulting Agency Comment Spec In Lab Young Ramirez Daily CHEMISTRY ORDERABLES [facility] [place] [address] * Prothrombin Time (02/06/2020 2:48 PM EDT) Pathologist [facility] Prothrombin Time 11.1 9.4 - 12.5 sec [facility] International Normalization Ratio 1.0 [facility] Comment: An INR <2.0 [...] MD HEMATOLOGY ORDERABLE S Performing Organization Address [facility] Co de Phone Number [facility] [place] [address] * APTT (02/06/2020 2:48 PM EDT) Partial Thromboplastin Time 35 25 - 37 sec [facility] Comment: The PTT is NOT appropriate for heparin monitoring. Use the Anti-Xa level for heparin monitoring (HEP UFH) or LMWH monitoring (HEP LMW). A PTT less than 37 seconds generally indicates adequate hemostasis. Blood specimen (specimen) 02/06/2020 2:48 PM EDT 02/06/2020 2:57 PM EDT Narrative Resulting Agency Comment Spec In Lab Young Coronado MD HEMATOLOGY ORDERABLE S Performing Organization Address City/[facility] Co de Phone Number [facility] [place] [address] documented in this encounter Visit Diagnoses Diagnosis Coronary artery disease, angina presence unspecified, unspecified vessel or lesion type, unspecified whether prairie band or transplanted heart Benign prostatic hyperplasia, unspecified whether lower urinary tract symptoms present Diabetes mellitus due to underlying condition with diabetic nephropathy, 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
--- OUTSIDE RECORDS SUMMARY | 2024-02-24 16:59 | XMS_ITS | Encounter Summary ---
[place] [address] Care Team Providers Care Cardroom Supervisor Name Role Phone Jarad Keller DNP Primary Care Provider [phone] Encounter Details Date Type Department Care Team (Late st Contact Info) Description 05/20/2020 Orders Only [place] [address] Nettie Davis, HUMANE OFFICER [facility] [place] [address] Social History Tobacco Use Types Packs/Day Years [...] on filedocumented in this encounter Care Teams Cardroom Supervisor Relationship Specialty Start Date End Date Jarad Keller DNP PCP - General Family Medicine 06/05/18 02/09/21 documented as of this encounter
--- OUTSIDE RECORDS SUMMARY | 2024-02-24 16:59 | XMS_ITS | Encounter Summary ---
[place] [address] Care Team Providers Care Real Estate Rep Name Role Phone Jarad Keller DNP Primary Care Provider [phone] Reason for Visit * Reason Onset Date Comments Prior Authorization 10/02/2019 Encounter Details Date Type Department Care Team (Late st Contact Info) Description 10/02/2019 Telephone [place] [address] Paris Duque Prior Authorization Social History Tobacco [...] on filedocumented in this encounter Care Teams Real Estate Rep Relationship Specialty Start Date End Date Jarad Keller DNP PCP - General Family Medicine 06/05/18 02/09/21 documented as of this encounter
--- OUTSIDE RECORDS SUMMARY | 2024-02-24 16:59 | XMS_ITS | Encounter Summary ---
[place] [address] Care Team Providers Care Hair Sample Matcher Name Role Phone Jarad Keller DNP Primary Care Provider [phone] Encounter Details Date Type Department Care Team (Late st Contact Info) Description 08/28/2019 Telephone [place] [address] Kameron Frey Social History Tobacco Use Types [...] 08/28/2019 11:08 AM EDT Patient's physician from [facility], Dr. Stephens, called to inquire about the patient's weightbearing status. He already has the last note from the patient's visit on 24 August 2019. This message was forwarded to Dr. Vergara for guidance. documented in this encounter Plan of Treatment Not on file documented as of this encounter Visit Diagnoses Not on filedocumented in this encounter Care Teams Hair Sample Matcher Relationship Specialty Start Date End Date Jarad Keller DNP PCP - General Family Medicine 06/05/18 02/09/21 documented as of this encounter
--- OUTSIDE RECORDS SUMMARY | 2024-02-24 16:59 | XMS_ITS | Encounter Summary ---
[place] [address] Care Team Providers Care Appraiser Oil And Water Name Role Phone Jarad Keller DNP Primary Care Provider [phone] Encounter Details Date Type Department Care Team (Late st Contact Info) Description 01/14/2020 Abstract [place] [address] Jessica Santos Social History Tobacco Use Types [...] on filedocumented in this encounter Care Teams Appraiser Oil And Water Relationship Specialty Start Date End Date Jarad Keller DNP PCP - General Family Medicine 06/05/18 02/09/21 documented as of this encounter
--- OUTSIDE RECORDS SUMMARY | 2024-02-24 16:59 | XMS_ITS | Encounter Summary ---
[place] [address] Care Team Providers Care Data Manager Name Role Phone Jarad Keller DNP Primary Care Provider [phone] Encounter Details Date Type Department Care Team (Late st Contact Info) Description 01/01/2020 [place] [address] Becca Bansal Social History Tobacco Use Types [...] on filedocumented in this encounter Care Teams Data Manager Relationship Specialty Start Date End Date Jarad Keller DNP PCP - General Family Medicine 06/05/18 02/09/21 documented as of this encounter
--- OUTSIDE RECORDS SUMMARY | 2024-02-24 16:59 | XMS_ITS | Encounter Summary ---
[place] [address] Care Team Providers Care Advertising Sales Executive Name Role Phone Jarad Keller DANIKA Primary Care Provider [phone] Reason for Visit * Reason Onset Date Comments Appointment 04/18/2020 Encounter Details Date Type Department Care Team (Late st Contact Info) Description 04/18/2020 [place] [address] Harmeet Arvizu MD [facility] [place] [address] Appointment Social History Tobacco Use Types Packs/Day [...] on filedocumented in this encounter Care Teams Advertising Sales Executive Relationship Specialty Start Date End Date Jarad Keller DNP PCP - General Family Medicine 06/05/18 02/09/21 documented as of this encounter
--- OUTSIDE RECORDS SUMMARY | 2024-02-24 16:59 | XMS_ITS | Encounter Summary ---
Author Organization [facility] [place] [place] [address] Care Team Providers Care Business Strategist Name Role Phone Jarad Keller DNP Primary Care Provider [phone] Reason for Visit * Reason Comments Procedure Encounter Details Date Type Department Care Team (Latest Contact Info) Description 12/07/2019 10:00 AM EDT Procedure [place] [address] Harmeet Arvizu MD [facility] [place] [address] Proliferative diabetic retinopathy of left eye with [...] about driving: We always recommend having a trailer tank truck driver on the day you get [...] Normal and Not Expected side effects: Call [phone] (Eye Clinic) DAY or NIGHT, HOLIDAY or [...] of Eylea 2.0 mg left eye Assist: Crayon Sorting Machine Feeder Anesthesia: Topical Proparacaine and topical 4% Lidocaine Complications: None Procedure: The patient was taken to the minor treatment suite where the patient was reidentified using name and birthdate as critical identifiers. The correct eye as the operative site was reidentified by a preplaced site maria r, and the consent form was actively reviewed by the personnel assistant and the surgeon. The left eye was prepped including instillation of Betadine 5% into the left cul de sac for 5 minutes, facial prep with ophthalmic Betadine and placement of a lid speculum. The Surgeon performed hand washing preoperatively, used gloves, and wore a face mask or used no talking technique during the procedudre, as did the neurosurgical physician assistant. After topical anesthesia of the injection [...] call the Eye Clinic or Eye Doctor tongue and quarter stitcher, should they develop pain the treated eye, [...] Eye documented in this encounter Care Teams Business Strategist Relationship Specialty Start Date End Date Jarad Keller DNP PCP - General Family Medicine 06/05/18 02/09/21 documented as of this encounter
--- OUTSIDE RECORDS SUMMARY | 2024-02-24 16:59 | XMS_ITS | Encounter Summary ---
Author Organization [facility] Address [facility] [place] [address] Care Team Providers Care Biofuels Product Manager Name Role Phone Jarad Keller DANIKA Primary Care Provider [phone] Reason for Referral * Physical Therapy (Routine) - Closed Specialty Diagnoses / Procedures Referred By Contac t Referred To Contact Diagnoses Closed nondisplaced fracture of shaft of right clavicle, initial encounter Closed fracture of proximal end of right humerus, unspecified fracture morphology, initial encounter Louis Vergara MD [facility] [place] [address] Unknown None Referral ID Status Reason Start Date Expiration Date V isits Requested Visits Authorized [id number] Closed Evaluate and Treat 08/24/2019 02/20/2020 12 12 Reason for Visit * Consultation (Urgent) - Specialty Diagnoses / Procedures Referred By Contac t Referred To Contact Orthopaedics Diagnoses RIGHT 2 PART PROX HUM FX, NON SAIDPLACED MIDSHAFT CLAVICLE FX AND R SCAPULAR BODY FX DOI 07/29/2019 Toni Maya MD [facility] [place] [address] [facility] [address] [place] [address] Referral ID Status Reason Start Date Expiration Date V isits Requested Visits Authorized [id number] 07/30/2019 07/29/2020 1 1 Encounter Details Date Type Department Care Team (Latest Contact Info) Description 08/24/2019 8:00 AM EDT TH Visit (TeleHealth) Orthopaedics at [facility] [place] [address] Louis Vergara MD [facility] [place] [address] Closed fracture of proximal end of right [...] fracture, possible nondisplaced right scapula fracture At [facility] Had repeat xrays of the right shoulder on 08/15 Still feels like can't do much with the right shoulder. Not too much pain however. Can't lift the arm at all Has been doing PT Feels like it is just not moving. Index, thumb, middle feel slightly numb, just since the injury. Still in a sling. RHD Lives with and child normally in [place]. Imaging: Right shoulder xrays with minimally displaced [...] encounter documented in this encounter Care Teams Biofuels Product Manager Relationship Specialty Start Date End Date Jarad Keller DNP PCP - General Family Medicine 06/05/18 02/09/21 documented as of this encounter
--- OUTSIDE RECORDS SUMMARY | 2024-02-24 16:59 | XMS_ITS | Encounter Summary ---
[place] [address] Care Team Providers Care Manager Baby Name Role Phone Jarad Keller DNP Primary Care Provider [phone] Encounter Details Date Type Department Care Team (Late st Contact Info) Description 02/06/2020 11:00 AM EDT Office Visit [place] [address] Cathie Farfan MD [facility] DR [place] [address] ESRD (end stage renal disease); Encounter for [...] was elevated. 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 Since his fall he has been having [...] INSERTION performed by Erasmo Bajwa MD at [facility] OSC ? ? PRO REPAIR COMPLEX RETINA DETACH VITRECTOMY & MEMB PEEL 04/03/2012, 04/03/12 REPAIR COMPLEX RETINAL DETACHMENT, W/ VITRECTOMY, MEMBRANE PEELING performed by Matteo Diane MD at [facility] MAIN OR ? ? PRO REPAIR COMPLEX RETINA DETACH VITRECTOMY & MEMB PEEL 07/31/2012 REPAIR COMPLEX RETINAL DETACHMENT, W/ VITRECTOMY, MEMBRANE PEELING performed by Matteo Diane MD at [facility] MAIN OR ? ? PRO REPAIR COMPLEX RETINA DETACH VITRECTOMY & MEMB PEEL 01/08/2013 REPAIR COMPLEX RETINAL DETACHMENT, W/ VITRECTOMY, MEMBRANE PEELING performed by Matteo Diane MD at [facility] MAIN OR ??? PRO TX [...] oral capsule ??? OneTouch Verio Flex meter [facility] TEST BLOOD GLUCOSE THREE TIMES [...] unit (V-GO 20) Device 1 each by [facility].(Non-Drug; Combo Route) route daily. Insulin [...] Patient: FERNANDA Gurrola DOB(Age): 1960(59y) Med Rec#: [id number] Sex: M Site Loc: [facility] Ht / Wt: 162(cm)/103(kg) Pt. Loc: Adult Floor BSA: 2.06 Study Date: 07/31/2019 Pt. Type: Inpatient Tape: Referring: Aaron Dover Referring: YANELI Reading: Dev Hernandez ([id number]) Coordinator Of Evaluation: Efraín Heredia Diagnosis: *Unspecified fall, initial encounter [...] Normal Mid-Posterolateral Normal Mid-Inferior Normal Mid-Inferoseptal Normal [place]-Septal Normal [place]-Anterior Normal [place]-Lateral Normal [place]-Inferior Normal [place]-Tip Normal This report has been electronically signed by: Dev Hernandez MD 07/31/2019 15:10:05 Images reviewed and interpretation verified [facility] Cardiac Ultrasound Laboratory Assessment: Mr. [...] and for putting your dorothy in the [facility] Transplant Program. We will be discussing his case in our multidisciplinary kidney transplant evaluation committee where I will recommend we work towards getting him listed.. Please do not hesitate to contact me if you have any questions. The number rings directly to my office. Sincerely, Cathie Farfan M.D. Solid Organ Transplant Surgery [facility] documented in this encounter Plan of Treatment Not on file documented as of this encounter Visit Diagnoses Diagnosis ESRD (end stage renal disease) End stage renal disease Encounter for pre-transplant evaluation for kidney transplant documented in this encounter Care Teams Manager Baby Relationship Specialty Start Date End Date Jarad Keller DNP PCP - General Family Medicine 06/05/18 02/09/21 documented as of this encounter
--- OUTSIDE RECORDS SUMMARY | 2024-02-24 16:59 | XMS_ITS | Encounter Summary ---
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 Labs: Serologies (immune status), ABO verification [...] his medical records can be found at [facility] and . Care providers include CHINO Casanova MD and Dr. Roy (Endocrine). - He would like to complete their transplant specific testing at [facility] or [facility] (pt is indifferent to either) so [...] documented in this encounter Care Teams Electric Truck Crane Operator Relationship Specialty Start Date End Date Jarad Keller DNP PCP - General Family Medicine 06/05/18 02/09/21 documented as of this encounter
--- OUTSIDE RECORDS SUMMARY | 2024-02-24 16:59 | XMS_ITS | Encounter Summary ---
[place] [address] Care Team Providers Care Operational Risk Manager Name Role Phone Jarad Keller DNP Primary Care Provider [phone] Encounter Details Date Type Department Care Team (Late st Contact Info) Description 02/06/2020 10:30 AM EDT Office Visit [place] [address] Young Watts MD [facility] [place] [address] Type 2 diabetes mellitus with ESRD (end-stage [...] the patient received their treatment from is: [place], [place] ? 2016 Previously [address] listed [address] [facility] Reason for referral: Evaluation for Kidney [...] 6 months ago stress test at [facility] Er Seborrhea Edentulous Balance problems uses cane Morbid [...] INSERTION performed by Erasmo Bajwa MD at [facility] OSC ? ? PRO REPAIR COMPLEX RETINA DETACH VITRECTOMY & MEMB PEEL 04/03/2012, 04/03/12 REPAIR COMPLEX RETINAL DETACHMENT, W/ VITRECTOMY, MEMBRANE PEELING performed by Matteo Diane MD at [facility] MAIN OR ? ? PRO REPAIR COMPLEX RETINA DETACH VITRECTOMY & MEMB PEEL 07/31/2012 REPAIR COMPLEX RETINAL DETACHMENT, W/ VITRECTOMY, MEMBRANE PEELING performed by Matteo Diane MD at [facility] MAIN OR ? ? PRO REPAIR COMPLEX RETINA DETACH VITRECTOMY & MEMB PEEL 01/08/2013 REPAIR COMPLEX RETINAL DETACHMENT, W/ VITRECTOMY, MEMBRANE PEELING performed by Matteo Diane MD at [facility] MAIN OR ??? 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 mv,iron/folic/D3/om-3/dha/epa (PRORENAL QD ORAL), ProRenal QD oral capsule, Disp: , Rfl: ??? OneTouch Verio Flex meter [facility], TEST BLOOD GLUCOSE THREE TIMES A DAY, [...] unit (V-GO 20) Device, 1 each by [facility].(Non-Drug; Combo Route) route daily. [...] 02/06/2020 in [place] [facility] [place] Weight 102.5 kg (226 lb) Height 163.8 [...] strength intact. Neurological: No asymmetries, DTRs or cnc technician Skin: no active lesions Assessment: Mr. Maurice [...] testing for TBI, needs psychosocial eval re: internet systems administrator issues at home ( is invalid due [...] 90 Minutes in direct face to face baby counselor. documented in this encounter Plan of Treatment Not on file documented as of this encounter Visit Diagnoses Diagnosis Type 2 diabetes mellitus with ESRD (end-stage renal disease) Type II or unspecified type diabetes mellitus with renal manifestations, not stated as uncontrolled Pre-transplant evaluation for ESRD (end stage renal disease) Other specified pre-operative examination documented in this encounter Care Teams Operational Risk Manager Relationship Specialty Start Date End Date Jarad Keller DNP PCP - General Family Medicine 06/05/18 02/09/21 documented as of this encounter
--- OUTSIDE RECORDS SUMMARY | 2024-02-24 16:59 | XMS_ITS | Encounter Summary ---
Author Organization [facility] [place] [address] Care Team Providers Care Charge Nurse Name Role Phone Jarad Keller DNP Primary Care Provider [phone] Encounter Details Date Type Department Care Team (Late st Contact Info) Description 08/16/2019 Ancillary Procedure Radiology Library at [facility] [place] [place] [address] Jarad Keller DNP [address] [place] [address] Social History Tobacco Use Types [...] DX Shoulder (08/16/2019 12:00 AM EDT) Narrative TROY - 08/17/2019 7:59 AM EDT This exam is auto-finalizing. It's purpose is for storage only. Jarad Keller DNP IMG FILM LIBRARY OR DERABLES Performing Organization Address City/State/[facility] Co de Phone Number [place], [place] documented in this encounter Visit Diagnoses Not on filedocumented in this encounter Care Teams Charge Nurse Relationship Specialty Start Date End Date Jarad Keller DNP PCP - General Family Medicine 06/05/18 02/09/21 documented as of this encounter
--- OUTSIDE RECORDS SUMMARY | 2024-02-24 16:59 | XMS_ITS | Encounter Summary ---
Author Organization [facility] [place] [address] Care Team Providers Care Assembly Inspector Name Role Phone Jarad Keller DANIKA Primary Care Provider Reason for Referral * Consultation (Routine) - Closed Specialty Diagnoses / Procedures Referred By Puneet hallman Referred To Contact Transplant Diagnoses ESRD (end stage renal disease) Procedures Txp Too Lynn MD [facility] [place] [address] Young Watts MD [facility] [place] [address] Referral ID Status Reason Start Date Expiration Date V isits Requested Visits Authorized [id number] Closed Consult, Test & Treat 12/18/2019 12/17/2020 1 1 Encounter Details Date Type Department Care Team (Late st Contact Info) Description 12/18/2019 Orders Only [place] [address] Too Morgan MD [facility] [place] [address] ESRD (end stage renal disease) (Primary Dx); [...] examination documented in this encounter Care Teams Assembly Inspector Relationship Specialty Start Date End Date Jarad Keller DNP PCP - General Family Medicine 06/05/18 02/09/21 documented as of this encounter
--- OUTSIDE RECORDS SUMMARY | 2024-02-24 16:59 | XMS_ITS | Encounter Summary ---
Author Organization [facility] [place] [address] Care Team Providers Care Manager Education Name Role Phone Jarad Keller DNP Primary Care Provider [phone] Reason for Visit * Reason Comments Procedure Encounter Details Date Type Department Care Team (Latest Contact Info) Description 11/09/2019 2:15 PM EDT Procedure [place] [address] Harmeet Arvizu MD [facility] [place] [address] Proliferative diabetic retinopathy of left eye with [...] about driving: We always recommend having a motor pool driver on the day you get an [...] Normal and Not Expected side effects: Call [phone] (Eye Clinic) DAY or NIGHT, HOLIDAY or [...] of Eylea 2.0 mg left eye Assist: Discharge Planner Anesthesia: Topical Proparacaine and topical 4% Lidocaine Complications: None Procedure: The patient was taken to the minor treatment suite where the patient was reidentified using name and birthdate as critical identifiers. The correct eye as the operative site was reidentified by a preplaced site maria r, and the consent form was actively reviewed by the assistant maintenance manager and the surgeon. The left eye was prepped including instillation of Betadine 5% into the left cul de sac for 5 minutes, facial prep with ophthalmic Betadine and placement of a lid speculum. The Surgeon performed hand washing preoperatively, used gloves, and wore a face mask or used no talking technique during the procedudre, as did the surgical assist. After topical anesthesia of the injection site [...] call the Eye Clinic or Eye Doctor wagon driver salesperson, should they develop pain the treated eye, [...] Eye documented in this encounter Care Teams Manager Education Relationship Specialty Start Date End Date Jarad Keller DNP PCP - General Family Medicine 06/05/18 02/09/21 documented as of this encounter
--- OUTSIDE RECORDS SUMMARY | 2024-02-24 16:59 | XMS_ITS | Encounter Summary ---
[place] [address] Care Team Providers Care Parole Or Probation Officer Name Role Phone Jarad Keller DNP Primary Care Provider [phone] Encounter Details Date Type Department Care Team (Latest Contact Info) Description 01/04/2020 1:45 PM EDT Office [place] [address] [facility] [place] [address] Proliferative diabetic retinopathy of left eye with [...] category documented in this encounter Care Teams Parole Or Probation Officer Relationship Specialty Start Date End Date Jarad Keller DNP PCP - General Family Medicine 06/05/18 02/09/21 documented as of this encounter
--- OUTSIDE RECORDS SUMMARY | 2024-02-24 16:59 | XMS_ITS | Encounter Summary ---
[place] [address] Care Team Providers Care Tunnel Heading Supervisor Name Role Phone Jarad Keller DNP Primary Care Provider [phone] Reason for Visit * Reason Comments Procedure Encounter Details Date Type Department Care Team (Latest Contact Info) Description 10/12/2019 5:30 PM EDT Procedure visit [place] [address] Harmeet Arvizu MD [facility] DR [place] [address] Proliferative diabetic retinopathy of left eye with [...] about driving: We always recommend having a sanitation truck driver on the day you get [...] Normal and Not Expected side effects: Call [phone] (Eye Clinic) DAY or NIGHT, HOLIDAY or [...] of Eylea 2.0 mg left eye Assist: Program Officer Anesthesia: Topical Proparacaine and topical 4% Lidocaine Complications: None Procedure: The patient was taken to the minor treatment suite where the patient was reidentified using name and birthdate as critical identifiers. The correct eye as the operative site was reidentified by a preplaced site maria r, and the consent form was actively reviewed by the administrative assistant receptionist and the surgeon. The left eye was prepped including instillation of Betadine 5% into the left cul de sac for 5 minutes, facial prep with ophthalmic Betadine and placement of a lid speculum. The Surgeon performed hand washing preoperatively, used gloves, and wore a face mask or used no talking technique during the procedudre, as did the assistant mechanic. After topical anesthesia of the injection site [...] call the Eye Clinic or Eye Doctor international trade analyst, should they develop pain the treated eye, increasing redness or a discharge from the eye. 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
--- OUTSIDE RECORDS SUMMARY | 2024-02-24 16:59 | XMS_ITS | Encounter Summary ---
Author Organization [facility] [place] [address] Care Team Providers Care Fiber Designer Name Role Phone Jarad Keller DANIKA Primary Care Provider [phone] Reason for Visit * Consultation (Routine) - Closed Specialty Diagnoses / Procedures Referred By Puneet hallman Referred To Contact Transplant Diagnoses ESRD (end stage renal disease) Procedures Txp Too Lynn MD [facility] [place] [address] Young Watts MD [facility] [place] [address] Referral ID Status Reason Start Date Expiration Date V isits Requested Visits Authorized [id number] Closed Consult, Test & Treat 12/18/2019 12/17/2020 1 1 Encounter Details Date Type Department Care Team (Latest Contact Info) Description 02/06/2020 9:00 AM EDT Clinical Support [place] [address] Young Watts MD [facility] [place] [address] Pre-transplant evaluation for kidney transplant; ESRD (end [...] disease documented in this encounter Care Teams Fiber Designer Relationship Specialty Start Date End Date Jarad Keller DNP PCP - General Family Medicine 06/05/18 02/09/21 documented as of this encounter
--- OUTSIDE RECORDS SUMMARY | 2024-02-24 16:59 | XMS_ITS | Encounter Summary ---
Author Organization [facility] [place] [address] Care Team Providers Care Sander Machine Name Role Phone Jarad Keller DNP Primary Care Provider [phone] Encounter Details Date Type Department Care Team (Late st Contact Info) Description 08/06/2019 Ancillary Procedure Radiology Library at [facility] [place] [address] Jarad Keller DNP [address] [place] [address] Social History Tobacco Use Types [...] DX Chest (08/06/2019 12:00 AM EDT) Narrative TROY - 08/17/2019 8:00 AM EDT This exam is auto-finalizing. It's purpose is for storage only. Jarad Keller DNP IMG FILM LIBRARY OR DERABLES Performing Organization Address City/State/[facility] Co de Phone Number [place], [place] documented in this encounter Visit Diagnoses Not on filedocumented in this encounter Care Teams Sander Machine Relationship Specialty Start Date End Date Jarad Keller DNP PCP - General Family Medicine 06/05/18 02/09/21 documented as of this encounter
--- OUTSIDE RECORDS SUMMARY | 2024-02-24 16:59 | XMS_ITS | Encounter Summary ---
[place] [address] Care Team Providers Care Wraparound Facilitator Name Role Phone Jarad Keller DNP Primary Care Provider [phone] Encounter Details Date Type Department Care Team (Late st Contact Info) Description 02/06/2020 11:30 AM EDT Office Visit [place] [address] Pre-transplant evaluation for kidney transplant Social History [...] EDT TRANSPLANT NUTRITION Initial Transplant Note This telegraphic typewriter repairer met with Maurice Rudolph a 59 y.o. [...] oral capsule ??? OneTouch Verio Flex meter [facility] TEST BLOOD GLUCOSE THREE TIMES A DAY [...] unit (V-GO 20) Device 1 each by [facility].(Non-Drug; Combo Route) route daily. Insulin pump to [...] means for contact provided. Plan communicated to Supervisor Aircraft Cleaning for Documentation in patient's transplant medical record. [...] examination documented in this encounter Care Teams Wraparound Facilitator Relationship Specialty Start Date End Date Jarad Keller DNP PCP - General Family Medicine 06/05/18 02/09/21 documented as of this encounter
--- OUTSIDE RECORDS SUMMARY | 2024-02-24 16:59 | XMS_ITS | Encounter Summary ---
[place] [address] Care Team Providers Care Polarity Tester Name Role Phone Jarad Keller DANIKA Primary Care Provider [phone] Encounter Details Date Type Department Care Team (Late st Contact Info) Description 01/18/2020 Telephone [place] [address] Sherie Mccallum, GUARD SUPERVISOR [facility] [place] [address] Social History Tobacco Use Types Packs/Day Years [...] evaluation. Cause of Kidney Disease: Diabetes Dialysis: [address] [place] [address] Height: 5'4 Weight: 100kg BMI: 37.8 Past [...] on filedocumented in this encounter Care Teams Polarity Tester Relationship Specialty Start Date End Date Jarad Keller DNP PCP - General Family Medicine 06/05/18 02/09/21 documented as of this encounter
--- OUTSIDE RECORDS SUMMARY | 2024-02-24 17:00 | XMS_ITS | Encounter Summary ---
Author Organization [facility] [place] [facility] [place] [place] [address] Care Team Providers Care Optics Test Technician Name Role Phone Jarad Keller DNP Primary Care Provider [phone] Encounter Details Date Type Department Care Team (Late st Contact Info) Description 07/30/2019 Orders [place] [address] Louis Vergara MD [facility] DR ORTHOPAED[place] [address] Closed fracture of right scapula, unspecified part [...] the number below. ? Procedure Note Debra Jasmien MD - 07/30/2019 EXAMINATION: XR SHOULDER RIGHT [...] encounter documented in this encounter Care Teams Optics Test Technician Relationship Specialty Start Date End Date Jarad Keller DNP PCP - General Family Medicine 06/05/18 02/09/21 documented as of this encounter
--- OUTSIDE RECORDS SUMMARY | 2024-02-24 17:00 | XMS_ITS | Encounter Summary ---
Author Organization [facility] [place] [address] Care Team Providers Care Superintendent Automotive Name Role Phone Jarad Keller DNP Primary Care Provider [phone] Encounter Details Date Type Department Care Team (Late st Contact Info) Description 07/30/2019 12:30 AM EDT Ancillary Procedure Radiology Library at [facility] [place] [address] Social History Tobacco Use Types Packs/Day Years [...] as necessary): chest abdomen pelvis; Sending Institution [facility]; Date of exam [id number]; I believe [...] add comments as necessary): chest abdomen pelvis; [facility]; Date of exam [id number]; I believe [...] number below. Electronically signed by: Huang Hernandez Radiology [employer]([phone]), at 07/30/2019 1:42 AM Kimani Kiser MD IMG OUTSIDE INTERPRE TATION ORDERABLES documented in this encounter Visit Diagnoses Not on filedocumented in this encounter Care Teams Superintendent Automotive Relationship Specialty Start Date End Date Jarad Keller DNP PCP - General Family Medicine 06/05/18 02/09/21 documented as of this encounter
--- OUTSIDE RECORDS SUMMARY | 2024-02-24 17:00 | XMS_ITS | Encounter Summary ---
Author Organization [facility] [place] [address] Care Team Providers Care Fullerette Name Role Phone Jarad Keller DNP Primary Care Provider [phone] Encounter Details Date Type Department Care Team (Late st Contact Info) Description 07/30/2019 12:25 AM EDT Ancillary Procedure Radiology Library at [facility] [place] [address] Social History Tobacco Use Types Packs/Day Years [...] exclude potential malignancy. Alternatively, depending on the eimlz-dx-zpyh, this can potentially be reevaluated on clinically-decided [...] necessary): Head and C spine; Sending [facility]; Date of exam [id number]; I believe a [...] as necessary): Head [facility] C spine[facility] Date of exam [id number]; I believe a [...] exclude potential malignancy. Alternatively, depending on the eujrn-gs-swez, this can potentially be reevaluated on clinically-decided [...] on filedocumented in this encounter Care Teams Fullerette Relationship Specialty Start Date End Date Jarad Keller DNP PCP - General Family Medicine 2/4/19 10/11/21 documented as of this encounter
--- OUTSIDE RECORDS SUMMARY | 2024-02-24 17:00 | XMS_ITS | Encounter Summary ---
Author Organization [facility] [place] [address] Care Team Providers Care Pet Caretaker Name Role Phone Jarad Keller DNP Primary Care Provider [phone] Encounter Details Date Type Department Care Team (Late st Contact Info) Description 07/29/2019 10:20 PM EDT Ancillary Procedure Radiology Library at [facility] [place] [address] Social History Tobacco Use Types Packs/Day Years [...] Dover MD IMG FILM LIBRARY ORD ERABLES [place], [place] documented in this encounter Visit Diagnoses Not on filedocumented in this encounter Care Teams Pet Caretaker Relationship Specialty Start Date End Date Jarad Keller DNP PCP - General Family Medicine 06/05/18 02/09/21 documented as of this encounter
--- OUTSIDE RECORDS SUMMARY | 2024-02-24 17:00 | XMS_ITS | Encounter Summary ---
Author Organization [facility] [place] [address] Care Team Providers Care Wire Rope Fabrication Supervisor Name Role Phone Jarad Keller DNP Primary Care Provider [phone] Encounter Details Date Type Department Care Team (Late st Contact Info) Description 07/29/2019 10:25 PM EDT Ancillary Procedure Radiology Library at [facility] [place] [address] Social History Tobacco Use Types Packs/Day Years [...] Extremity (07/29/2019 10:14 PM EDT) Narrative ALEXANDER SIMMONS - 07/29/2019 10:14 PM EDT This exam is auto-finalizing. It's purpose is for storage only. Aaron Dover MD IMG FILM LIBRARY ORD ERABLES [place], [place] documented in this encounter Visit Diagnoses Not on filedocumented in this encounter Care Teams Wire Rope Fabrication Supervisor Relationship Specialty Start Date End Date Jarad Keller DNP PCP - General Family Medicine 06/05/18 02/09/21 documented as of this encounter
--- OUTSIDE RECORDS SUMMARY | 2024-02-24 17:00 | XMS_ITS | Encounter Summary ---
Author Organization [facility] [place] [place] [address] Care Team Providers Care Design Printing Machine Setter Name Role Phone Jarad Keller DNP Primary Care Provider [phone] Encounter Details Date Type Department Care Team (Late st Contact Info) Description 07/29/2019 9:10 PM EDT Ancillary Procedure Radiology Library at [facility] [place] [address] Aaron Dover MD [facility] [place] [address] Social History Tobacco Use Types Packs/Day Years [...] And Spine (07/29/2019 9:05 PM EDT) Narrative ALEXANDER SIMMONS - 07/29/2019 9:05 PM EDT This exam is auto-finalizing. It's purpose is for storage only. Aaron Dover MD IMG FILM LIBRARY ORD ERABLES Performing Organization Address City/State/[facility] Co de Phone Number [place], [place] documented in this encounter Visit Diagnoses Not on filedocumented in this encounter Care Teams Design Printing Machine Setter Relationship Specialty Start Date End Date Jarad Keller DNP PCP - General Family Medicine 06/05/18 02/09/21 documented as of this encounter
--- OUTSIDE RECORDS SUMMARY | 2024-02-24 17:00 | XMS_ITS | Encounter Summary ---
Author Organization [facility] [place] [address] Care Team Providers Care Panel Laminator Name Role Phone Jarad Keller DNP Primary Care Provider [phone] Encounter Details Date Type Department Care Team (Late st Contact Info) Description 07/29/2019 9:05 PM EDT Ancillary Procedure Radiology Library at [facility] [place] [address] Aaron Dover MD [facility] [place] [address] Social History Tobacco Use Types Packs/Day Years [...] FILM LIBRARY ORD ERABLES Performing Organization Address City/State/[facility] Co de Phone Number [place], [place] documented in this encounter Visit Diagnoses Not on filedocumented in this encounter Care Teams Panel Laminator Relationship Specialty Start Date End Date Jarad Keller DNP PCP - General Family Medicine 06/05/18 02/09/21 documented as of this encounter
--- OUTSIDE RECORDS SUMMARY | 2024-02-24 17:00 | XMS_ITS | Encounter Summary ---
Author Organization Formerly [facility] [place] [address] Care Team Providers Care Telephone Clerks Supervisor Name Role Phone Jarad Keller DNP Primary Care Provider [phone] Reason for Visit * Reason Comments Trauma * Auth/Cert Specialty Diagnoses / Procedures Referred By Puneet t Referred To Contact Diagnoses Fall Fall, initial encounter Referral ID Status Reason Start Date Expiration Date Visits Re quested Visits Authorized [id number] 1 1 Encounter Details Date Type Department Care Team (Latest Contact Info) Description 07/29/2019 11:53 PM EDT - 08/04/2019 3:45 PM EDT Hospital Encounter [address] [place] [address] Kimani Kiser MD [facility] [place] [address] Aaron Dovre MD [facility] [place] [address] Eliot Cohen MD [facility] [place] [address] Fall, initial encounter; Closed fracture of proximal [...] wound care ?? Trauma Clinic or Primary Computer Systems Integrator? Scheduled Appointments: The following appointments have been scheduled on your behalf: Future Appointments Date Time Provider Department Center 08/07/2019 8:45 AM [facility] DX ROOM 1 MH Xray [facility] Rad 08/07/2019 9:00 AM [facility] DX ROOM 1 MH Xray [facility] Rad 08/07/2019 10:00 AM Faye Valle PA [facility] [place] [facility] 08/17/2019 9:15 AM [facility] DB XRAY ROOM 2 MH Xray [facility] Rad 08/17/2019 10:30 AM Jacinta Pressley APRN [facility] [place] 08/17/2019 11:40 AM [facility] [address] [facility] Rad 08/17/2019 1:00 PM Lavern Velez APRN [facility] [id number] [facility] 08/29/2019 2:30 PM Ceasar Roy MD [facility] [place] 10/12/2019 2:30 PM Harmeet Arvizu MD [facility] [place]B [facility] Other In-hospital Issues: - Acute pain - [...] Maurice A Rudolph??is a 59 y.o.??male??presents to [facility] s/p fall. ??Description of events leading upto injury includes patient was walking up his stairs at home, lost control, and fell down 12 stairs. He states that the last thing he remembers before losing consciousness is the realization that he is falling.??He was worked up with imaging at [facility] prior to transfer here. ?? Primary [...] rehab and he accepted a bed at [facility]. Hi transfer was postponed on 08/02 [...] juice or regular (not diet) soda 6 EDMdesigneravers small box of raisins 4 glucose tablets [...] exclude potential malignancy. Alternatively, depending on the nlcgh-zw-msxp, this can potentially be reevaluated on clinically-decided [...] humeral fracture is not included in the lscrt-fc-fhpx. Known right second rib fracture is not visible. There is curvilinear density along the right apical and lateral chest wall that is similar to prior,most likely extrapleural blood. No distended loops of bowel. EKG leads overlie the patient and obscure the dzqwr-vm-nlzw. ?? 1. Small left pleural fluid collection [...] exclude potential malignancy. Alternatively, depending on the ohroj-ng-kjpo, thiscan potentially be reevaluated on clinically-decided follow-up [...] Time Provider Department Center 08/07/2019 8:45 AM [facility] DX ROOM 1 MH Xray [facility] Rad 08/07/2019 9:00 AM [facility] DX ROOM 1 MH Xray [facility] Rad 08/07/2019 10:00 AM Faye Valle PA [facility] [place] [facility] 08/17/2019 9:15 AM [facility] DB XRAY ROOM 2 MH Xray [facility] Rad 08/17/2019 10:30 AM Jacinta Pressley APRN [facility] [place] 08/17/2019 11:[address] [facility] [address] [facility] Rad 08/17/2019 1:00 PM Lavern Velez APRN [facility] [id number] [facility] 08/29/2019 2:30 PM Ceasar Roy MD [facility] [place] 10/12/2019 2:30 PM Harmeet Arvizu MD [facility] 4B [facility] Outpatient Services/Studies: CT Head wo Contrast (Generic) Standing Status: Future Standing Exp. Date: 02/27/20 Question Response Notes Where will study be performed? [facility] Radiology [120] Special Instructions Given [...] anticoagulant, and non-steroidal anti-inflammatory (NSAIDs) drugs. Common ralg-hna-tacqpdd medications which should be avoided include Aspirin, [...] a head injury. - When your health floor care specialist says you are well enough, return to your normal activities gradually, not all at once. - Talk with your health floor care specialist about when you can return to [...] Provider. Please call the Neurosurgery Office at [phone] if you do not receive a scheduled [...] wound care ?? Trauma Clinic or Primary Computer Systems Integrator? As a result of your CT scans, you were found to have the following incidental findings, please discuss with your primary care provider at you next visit: -??Focal infrarenal abdominal aortic ectasia up to 2.4 cm.?? -Very mild nasopharyngeal asymmetry, may or may not be debris; consider direct visualization to exclude potential malignancy. Alternatively, depending on the mdhkj-vu-nslg, this can potentially be reevaluated on clinically-decided [...] Time Provider Department Center 08/07/2019 8:45 AM [facility] DX ROOM 1 MH Xray [facility] Rad 08/07/2019 9:00 AM MH DX ROOM 1 MH Xray [facility] Rad 08/07/2019 10:00 AM Faye Valle PA [facility] [place] [facility]C [facility] 08/17/2019 9:15 AM [facility] DB XRAY ROOM 2 MH Xray [facility] Rad 08/17/2019 10:30 AM Jacinta Pressley APRN [facility] [place] 08/17/2019 11:40 [address] [facility] [address] [facility] Rad 08/17/2019 1:00 PM Lavern Velez APRN [facility] [id number] [facility] 08/29/2019 2:30 PM Ceasar Roy MD [facility] [place] 10/12/2019 2:30 PM Harmeet Arvizu MD [facility] [place] 4B [facility] Driving Restrictions: - No driving if you [...] 1. You will have follow-up appointments at [facility] as indicated in the ???Future Appointments and [...] on the next business . Please call [phone] if you do not hear from us by that time, as your timely follow-up is very important to us. Your care was managed by the Trauma and Acute Care Surgery Team at [facility]. If you have any questions or concerns, please feel free to contact us. Provider Contact Information: General Surgery: [facility] (after business hours): Primary Care Physician: aJrad Keller General Instructions Orthopedic Surgery Discharge Instructions [...] bowel movement. You can also take an cwql-afb-seylnwy medication, Miralax if needed to combat constipation. [...] bath may be easier. Call your doctor ([phone]) if you develop: 1. Fever greater than [...] 1. You will have follow-up appointments at [facility] as indicated in Future Appointment and Orders. [...] Time Provider Department Center 08/07/2019 8:45 AM [facility] DX ROOM 1 Xray [facility] Rad 08/07/2019 9:00 AM [facility] DX ROOM 1 MH Xray [facility] Rad 08/07/2019 10:00 AM Faye Valle PA [facility] [place] [facility]C [facility] 08/29/2019 2:30 PM Ceasar Roy MD [facility] [place]O [facility] 10/12/2019 2:30 PM Harmeet Arvizu MD [facility] [place] [facility]B [facility] If you have questions or concerns: Tuesday [...] Trauma and Acute Care Surgery Team at [facility]. If you have any questions or concerns, please feel free to contact us. Provider Contact Information: General Surgery Clinic: Nurses line for questions: [facility] (after business hours): CC: CHINO Casanova APRN Signed: Kendra Goff APRN Department of Surgery 08/04/2019 Trauma pager [phone] documented in this encounter Discharge Instructions * [...] bowel movement. You can also take an pcif-mzj-xpijqrb medication, Miralax if needed to combat constipation. [...] bath may be easier. Call your doctor ([phone]) if you develop: 1. Fever greater than [...] 1. You will have follow-up appointments at [facility] as indicated in Future Appointment and Orders. [...] Time Provider Department Center 08/07/2019 8:45 AM [facility] DX ROOM 1 Xray [facility] Rad 08/07/2019 9:00 AM [facility] DX ROOM 1 Xray [facility] Rad 08/07/2019 10:00 AM Faye Valle PA [facility] [place] [facility]C [facility] 08/29/2019 2:30 PM Ceasar Roy MD [facility] [place] 10/12/2019 2:30 PM Harmeet Arvizu MD [facility] [place] [address] [place] [address] If you have questions or concerns: Tuesday [...] anticoagulant, and non-steroidal anti-inflammatory (NSAIDs) drugs. Common vxgb-sjd-hivfbua medications which should be avoided include Aspirin, [...] a head injury. - When your health floor care specialist says you are well enough, return to your normal activities gradually, not all at once. - Talk with your health floor care specialist about when you can return to [...] Provider. Please call the Neurosurgery Office at [phone] if you do not receive a scheduled [...] wound care ?? Trauma Clinic or Primary Computer Systems Integrator? As a result of your CT scans, you were found to have the following incidental findings, please discuss with your primary care provider at you next visit: -??Focal infrarenal abdominal aortic ectasia up to 2.4 cm.?? -Very mild nasopharyngeal asymmetry, may or may not be debris; consider direct visualization to exclude potential malignancy. Alternatively, depending on the zurvz-oi-ocxc, this can potentially be reevaluated on clinically-decided [...] Time Provider Department Center 08/07/2019 8:45 AM [facility] DX ROOM 1 MH Xray [facility] Rad 08/07/2019 9:00 AM [facility] DX ROOM 1 MH Xray [facility] Rad 08/07/2019 10:00 AM Faye Valle PA [facility] [place] [facility]C [facility] 08/17/2019 9:15 AM [facility] DB XRAY ROOM 2 MH Xray [facility] Rad 08/17/2019 10:30 AM Jacinta Pressley APRN [facility] SURG [facility] 08/17/2019 11:40 AM [facility] [address] [facility] Rad 08/17/2019 1:00 PM Lavern Velez APRN [facility] [id number] [facility] 08/29/2019 2:30 PM Ceasar Roy MD [facility] ENDO [facility] 10/12/2019 2:30 PM Harmeet Arvizu MD [facility] [place] 4B [facility] Driving Restrictions: - No driving if you [...] 1. You will have follow-up appointments at [facility] as indicated in the ???Future Appointments and [...] on the next business day. Please call [phone] if you do not hear from us by that time, as your timely follow-up is very important to us. Your care was managed by the Trauma and Acute Care Surgery Team at [facility]. If you have any questions or concerns, please feel free to contact us. Provider Contact Information: General Surgery: [facility] (after business hours): Primary Care Physician: Jarad [...] for 12 hours) 30 patch 08/05/2019 12/07/2019 sevelamer carbonate (Renvela) 800 mg Tablet Take 1 tablet by mouth 3 times daily (with meals). 08/04/2019 01/13/2024 insulin glargine Solution Inject 30 Units subcutaneously [...] 08/04/2019 3:45 PM EDT Office of Care Management/Relief Salesperson Name: Maurice Rudolph Presenting Issue: Outpatient Dialysis Update Notified [facility] HD unit that patient is scheduled for discharge soon. The dialysis unit is ready for the patient on 08/07/2019. The patient will have a schedule of /Tue at 0745hrs. Plan: Discharge Summary and last acute dialysis records will be faxed to the office clerk routine upon discharge. This office will be available to the patient, Cooler Tender-RN and Integration Manager for further assistance. Dialysis Unit Address: [place] [address] P: [phone] F: [phone] Christiano Onofre Resource SpecialistOffice of Care Management/Relief Salesperson * Aicha Santa RN - 08/04/2019 3:28 PM EDT RN attempted to call report. Quality Assistant at [facility] answered but was unable to get a facility RN toanswer. Energy Project Manager stated she will have facility RN call. Aicha Santa RN * Chalino Ceballos MD - 08/04/2019 2:20 PM EDT HYPERTENSION/ NEPHROLOGY PROGRESS NOTE PATIENT: Maurice Rudolph : 1960 ID:- 59 year old man with ESRD on HD (//TUE) at [facility] admitted with Right humeral, scapular, rib fracture [...] 4 limbs STUDIES: Labs: CBC: Recent Labs 08/03/1915 08/01/1925 07/31/19 0420 WBC 5.9 8.0 7.3 HGB 9.6* 9.1* 9.2* PLATELET 153 128* 128* Chemistry: Recent Labs 08/03/1971408/02/19 0642 08/01/1962407/31/19 0420 NA 132* 130* 130* 133* K 4.3 4.7 5.0 4.4 CL 89* 88* 91* 92* CO2 27 26 25 27 BUN 43* 50* 33* 48* CREATININE 5.44* 7.35* 5.44* 6.13* GLUCOSE 140 -- 180 110 Recent Labs 08/03/19 0715 08/02/19 0642 08/01/1962407/31/19 0420 07/30/19 0610 10/22/18 0944 10/21/18 0642 CALCIUM 8.9 8.6 8.5 8.5 8.6 < > -- 8.5 MAGNESIUM -- -- -- 0.92 0.81 -- -- -- PHOS -- -- -- -- 4.5 -- -- 5.8* PTH -- -- -- -- -- -- 131* -- < > = values in this interval not displayed. LFT's: Recent Labs 08/03/1971408/02/1942 08/01/1962410/19/18 1520 BILITOT 0.5 0.6 0.5 Not Perf BILIDIR -- -- -- Not Perf ALBUMIN 3.7 3.6 3.4 4.1 ALKPHOS 96 86 87 164* ALT 20 22 23 33 AST 21 22 29 69* IMPRESSION/ RECOMMENDATIONS: # ESRD on HD- T//Sat through LUE [facility] admitted after fall. -Undergoing [...] Fellow Nephrology Acute Care Team Pager Number #[phone] Associated attestation - Petros Zamarripa MD - [...] 08/04/2019 9:44 AM EDT Office of Care Management/Relief Salesperson Patient Name: Maurice Rudolph : 1960 Patient has been offered a IRF bed at [facility] arranged for a 1500hrs transport. Ambulance will need: Medicare ambulance form completed and signed (MD or Cooler Tender RN/STENCIL PRINTER) Copy of patient demographics [place] [facility] [place] [facility] DNR/DNI order, if active No MD to MD report necessary Please call Nursing Report to [phone], ask for office clerk routine. Info to accompany patient: Narcotic Prescriptions Copies of Medication Administration Records and IV sheets for past 10 days. Plan: Relief Salesperson will be available to the patient and Cooler Tender-RN and/or Social Workerfor further assistance. Patient will be discharged to: [facility] [address] [address] Christiano Onofre Relief Salesperson * Opal Garcia, RN - 08/04/2019 8:52 AM EDT Office of Care Management belt glass sander Opal Garcia (pager [phone]) Patient: Maurice Rudolph : 1960 (59 y.o.) Home: [facility] [address] LOS: 5 days Received confirmation from [facility] [phone] that they are prepared to receive patient today Thursday 08/03 and are in agreement with his being transferred at 3:00pm. Requesting Relief Salesperson to book BLS ambulance transport for pain with movement, unhealed fractures, and inability to maintain erect sitting position for duration of transport. Notified sister Adriana [phone] of today's discharge plans. Cofirmed with direct [...] 8:25 AM EDT Office of Care Management belt glass sander Opal Garcia (pager [phone]) Patient: Maurice Rudolph : 1960 (59 y.o.) Home: [facility] [address] LOS: 5 days Tolu from Trauma 5178 that patient will be medically ready for discharge to acute rehab today Thursday 08/03 after dialysis session. Confirmed with direct care RN that patient can be ready for transport at 3:00pm. Left message at [facility] [phone] requesting confirmation of bed availability. Requesting Relief Salesperson to contact [facility] via [employer] to confirm bed as well. Planning to request BLS ambulance transport for 3:00pm once [facility] bed is confirmed. Team is aware. [...] Progress Note Patient Name: Maurice Rudolph : [id number] MR#: [id number] 07/29/2019 Hospital Day 5 days Problem List: [...] arranged ELIOT COHEN MD 08/04/2019 * Sandhya August, BLACKSMITH SUPERVISOR - 08/03/2019 4:46 PM EDT Trauma Daily [...] head fx Orthopedic Surgery: Non-op intervention -NWB carolynn MITCHELL for comfort Right clavicle and elbow films completed Orthopedic Clinic ABRASIONS: Multiple scattered abrasions ?? Local wound care ?? Trauma Clinic or Primary Computer Systems Integrator ?? Problem List: - Acute pain - [...] exclude potential malignancy. Alternatively, depending on the winbq-ob-dtzx, this can potentially be reevaluated on clinically-decided follow- up examination of the intracranial hyperdense foci. []? Incidental Findings Form Completed Sandhya August APRN 08/03/2019 Trauma pager [phone] * Anabela Palacios RN - 08/03/2019 4:04 PM EDT RN-FOOD BAGGING MACHINE OPERATOR, Office of Care Management Anabela Palacios RN,BSN, AC Pager # [phone] Patient offered bed at [facility] today- medically held due to altered mental status. [facility] can admit on the weekend if medically ready( after hemodialysis). Tamar will be in the admissions office tomorrow at [facility] and can be reached at [phone]. They are asking that insulin pump gets [...] your insulin doses adjusted. Narcisa Tovar APRN [facility] Endocrinology Diabetes Management Pager [phone] * Eldon Bermudez MBBS - 08/03/2019 12:49 PM EDT HYPERTENSION/ NEPHROLOGY PROGRESS NOTE PATIENT: Maurice Rudolph : 1960 ID:- 59 year old man with ESRD on HD (/TH/SAT) at [facility] admitted with Right humeral, scapular, rib fracture [...] Discussed w/ Dr. Dallin Bermudez Nephrology Fellow [phone] Associated attestation - Petros Zamarripa MD - [...] Progress Note Patient Name: Maurice Rudolph : [id number] MR#: [id number] 07/29/2019 Hospital Day 4 days Problem List: [...] lidocaine, naloxone, Glucose 40% oral gel OR yqkwbquy56% OR glucagon (human recombinant) Events over the last 24 hrs: Confusion sems largely resolved Subjective: Awake, alert in no distress, knows he is at [facility] and knows it is 2020 Moderate abdominal [...] lidocaine, naloxone, Glucose 40% oral gel OR mhhmyluq75% OR glucagon (human recombinant) No Known Allergies [...] Palacios RN - 08/03/2019 10:39 AM EDT RN-FOOD BAGGING MACHINE OPERATOR, Office of Care Management Anabela Palacios RN,BSN, ACM Pager # [phone] e-DH reviewed. Patient discussed daily in interdisciplinary rounds. Patient has referral to [facility]. Spoke with operations support coordinator. OT asked for updated note. Teamfeels he is confused but redirectable and cooperative. Altered status may be from his pain management and HD. Endocrinology to review- if patient can manage his insulin pump independently than that would be acceptable. Spoke with Cari at [facility] - he has Medicaid spend down and [...] [facility] gives approval will need ambulance transport. STENCIL PRINTER/Cooler Tender remains available as needed for coordination of [...] PM EDT Fall Event Note Maurice Rudolph [id number] 08/02/2019 Time of Fall: 2324 Was the fall witnessed No/Unobserved fall Patient's description of fall: I don't know Nursing staff description of fall: Bed alarm was going off, CSW walked in and found pt on his [...] wound care ?? Trauma Clinic or Primary Computer Systems Integrator ?? Problem List: - Acute pain - Impaired mobility - ESRD, on dialysis - Elevated troponin Procedures: Secondary Issues: Past Medical History: Diagnosis Date ??? 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 Anxiety ??? Arthritis ??? Cataract. Dense with synechiae. Right eye. 06/21/2012 ??? Closed fracture of right proximal humerus 07/30/2019 ??? Complication of anesthesia Had ?laryngospasm post extubation in OR 12/3/12, requrring brief reintubation. ??? Diabetes mellitus 1994 [...] Intake/Output Summary (Last 24 hours) at 08/02/2019 1738 Last data filed at 08/02/2019 1243 Gross [...] NBO: miralax, pericolace - Last BM: 07/29/19 (SCRIPT MANAGER) ?? RENAL: ESRD Requiring Hemodialysis Nephrology involved [...] exclude potential malignancy. Alternatively, depending on the fyrjp-qq-zlad, this can potentially be reevaluated on clinically-decided follow- up examination of the intracranial hyperdense foci. []? Incidental Findings Form Completed Sandhya August, BLACKSMITH SUPERVISOR 08/02/2019 Trauma pager [phone] * Lynda Harris RN - 08/02/2019 3:06 PM EDT Patient has bed offer for Acute rehab at [facility] when medically ready. Patient with intermittent confusion per bedside RN. Adriana KRAFT accepted bed offer. If patients confusion persists [facility] inquiring if DPOA needs to be activated [...] secondary Medicaid. Lynda Harris RN CM Pager [phone] * Eliot Cohen MD - 08/02/2019 2:19 PM EDT Images from the original note were not included. Patient Name: Maurice Rudolph Patient Age: 59 y.o. Birthdate: 1960 Admit date: 07/29/2019 Attending Physician: Eliot Cohen MD Trauma Service - Progress Note Patient Name: Maurice Rudolph : [id number] MR#: [id number] 07/29/2019 Hospital Day 3 days Problem List: [...] - mildly confused, knows he is at [facility] but it is 2020 Moderate abdominal distension [...] man with ESRD on HD (T//TUE) at [facility] admitted with Right humeral, scapular, rib fracture [...] No asterixis. STUDIES: Labs: CBC: Recent Labs 08/01/1925 07/31/1941907/29/19 2359 WBC 8.0 7.3 11.3* HGB 9.1* 9.2* 10.9* PLATELET 128* 128* 135* Chemistry: Recent Labs 08/02/19 0642 08/01/1925 07/31/19 0420 07/30/19 0610 NA 130* 130* 133* 136 K 4.7 5.0 4.4 4.5 CL 88* 91* 92* 94* CO2 26 25 27 29 BUN 50* 33* 48* 37* CREATININE 7.35* 5.44* 6.13* 4.89* GLUCOSE -- 180 110 233* Recent Labs 08/02/19 0642 08/01/1962407/31/1941907/30/19 0610 10/22/18 0944 10/21/18 0642 CALCIUM 8.6 8.5 8.5 8.6 < > -- 8.5 MAGNESIUM -- -- 0.92 0.81 -- -- -- PHOS -- -- -- 4.5 -- -- 5.8* PTH -- -- -- -- -- 131* -- < > = values in this interval not displayed. LFT's: Recent Labs 08/02/19 0642 08/01/1962410/19/18 1520 BILITOT 0.6 0.5 Not Perf [...] Discussed w/ Dr. Angelica Bermudez Nephrology Fellow 0168 Associated attestation - Katelynn Dominguez MD - [...] 11:02 AM EDT OFFICE OF CARE MANAGEMENT Cooler Tender Follow-up Note Patient plan of care discussed with STENCIL PRINTER and assessment for continuing care and discharge needs. Trauma team paged and awaiting callback. [facility]: 3 INSURANCE: Payor: MEDICARE / Plan: MEDICARE PART A & B / Product Type: *No Product type* / SECONDARY INSURANCE: N/A DECISION MAKER: Full Code Received Patient not ready for DC today per (Provider report to STENCIL PRINTER) due to some confusion. Patient will likely [...] sister, Adriana Lopez is the primary DPOA ([phone]). CM has updated the demographics with all the contacts in order. His sister Iva is the second DPOA ([phone]). His son, Ze ([phone]). Team advised to please call Adriana his [...] Adriana KRAFT has requested referrals to: 1. [facility] PHONE: [phone] FAX: [phone] Nurse to Nurse report: [phone] [address] [place] [address] ?? Expected date of discharge: 08/03/2019 Note routed to Relief Salesperson who will communicate referrals to facilities and provide any required information. Cooler Tender to follow with team and family to assist with discharge needs when patient ready for discharge. Lynda Harris RN CM Pager [phone] * Giovana Ray RN - 08/02/2019 8:20 AM EDT Pt left floor for HD. * Eldon Bermudez MBBS - 08/01/2019 5:34 PM EDT HYPERTENSION/ NEPHROLOGY PROGRESS NOTE PATIENT: Maurice Rudolph : 1960 ID:- 59 year old man with ESRD on HD (T//TUE) at [facility] [place] [facility] admitted with Right humeral, scapular, rib fracture [...] wound care ?? Trauma Clinic or Primary Computer Systems Integrator ?? Problem List: - Acute pain - [...] PTT -- -- 34 Recent Labs 08/01/1962407/31/1941907/30/19 0607/29/19 2359 NA 130* 133* 136 136 K [...] NBO: miralax, pericolace - Last BM: 07/29/19 (SCRIPT MANAGER) ?? RENAL: ESRD Requiring Hemodialysis Nephrology involved [...] exclude potential malignancy. Alternatively, depending on the jahjc-zj-zyau, this can potentially be reevaluated on clinically-decided follow- up examination of the intracranial hyperdense foci. []? Incidental Findings Form Completed Sandhya August APRN 08/01/2019 Trauma pager [phone] * Eliot Cohen MD - 08/01/2019 10:40 AM EDT Patient Name: Maurice Rudolph Patient Age: 59 y.o. Birthdate: 1960 Admit date: 07/29/2019 Attending Physician: Eliot Cohen MD Trauma Service - Progress Note Patient Name: Maurice Rudolph : [id number] MR#: [id number] 07/29/2019 Hospital Day 2 days Problem List: [...] in thecare of this patient * Sandhya August, CHINO - 07/31/2019 2:13 PM EDT Trauma Daily [...] wound care ?? Trauma Clinic or Primary Computer Systems Integrator ?? Problem List: - Acute pain - [...] NBO: miralax, pericolace - Last BM: 07/29/19 (SCRIPT MANAGER) ?? RENAL: ESRD Requiring Hemodialysis Nephrology involved [...] exclude potential malignancy. Alternatively, depending on the hpwpx-ys-tpfu, this can potentially be reevaluated on clinically-decided follow- up examination of the intracranial hyperdense foci. []? Incidental Findings Form Completed Sandhya August, BLACKSMITH SUPERVISOR 07/31/2019 Trauma pager [phone] * Vesta Ordonez RN - 07/31/2019 1:21 PM EDT This is resumption of care referral. Patient goes to Hemodialysis to [facility] center in [place], [place] Address: [address] [place] [address], [place] [address] Current schedule: Tuesday,, Tuesday. RS please submit [...] 4.5 3.9 CL 92* 94* 93* CO2 31 BUN 48* 37* 34* CREATININE 6.13* [...] of care per Trauma Service. PLEASE PAGE [phone] WITH QUESTIONS Active Hospital Problems Diagnosis ??? [...] insulin. Neuro check stable, A&Ox4.Received order from BLACKSMITH SUPERVISOR that pt can be off tele for dialysis, order updated. senior loss control specialist called and updated about transfer. * Bibiana Venegas RN - 07/30/2019 8:45 PM EDT Patient arrived to floor via bed from [facility]. Patient A&O x 4, denies chest pain [...] is a 59 y.o. male presents to [facility] [place]/p [place]. Description of events leading up to injury includes patient was walking up his stairs at home, lost control, and fell down 12 stairs. He states that the last thing he remembers before losing consciousness is the realization that he is falling. He was worked up with imaging at [facility] prior to transfer here. ?? Primary [...] INSERTION performed by Erasmo Bajwa MD at [facility] ? ? PRO REPAIR COMPLEX RETINA DETACH VITRECTOMY & MEMB PEEL 04/03/2012, 04/03/12 REPAIR COMPLEX RETINAL DETACHMENT, W/ VITRECTOMY, MEMBRANE PEELING performed by Matteo Diane MD at [facility] MAIN OR ? ? PRO REPAIR COMPLEX RETINA DETACH VITRECTOMY & MEMB PEEL 07/31/2012 REPAIR COMPLEX RETINAL DETACHMENT, W/ VITRECTOMY, MEMBRANE PEELING performed by Matteo Diane MD at [facility] MAIN OR ? ? PRO REPAIR COMPLEX RETINA DETACH VITRECTOMY & MEMB PEEL 01/08/2013 REPAIR COMPLEX RETINAL DETACHMENT, W/ VITRECTOMY, MEMBRANE PEELING performed by Matteo Diane MD at [facility] MAIN OR ??? PRO [...] sensation intact on the right arm. 5/5 tablet coater strength.2+ radial pulse. Left upper extremity ROM [...] humeral fracture is not included in the hymkk-ay-pvry. Known right second rib fracture is not visible. There is curvilinear density along the right apical and lateral chest wall that is similar to prior,most likely extrapleural blood. No distended loops of bowel. EKG leads overlie the patient and obscure the mpkae-dx-oucx. 1. Small left pleural fluid collection versus [...] exclude potential malignancy. Alternatively, depending on the doxag-gh-lkeq, thiscan potentially be reevaluated on clinically-decided follow-up [...] vessel injury (CTA carotids was performed) Trauma [id number] days with repeat CXR EXTR: Right clavicle fx Right scapula fx Right comminuted humeral head fx Orthopedic Surgery Consulted Non-op intervention -NWB RUE, sling for comfort Right clavicle and elbow films completed Orthopedic Clinic TBD ABRASIONS: Multiple scattered abrasions Local wound care Trauma Clinic or Primary Computer Systems Integrator Injuries identified on Tertiary Survey: 1. No [...] Neurosurgery managing spine; see spine orders ACTIVITY: NWB RUE in sling PULM: - IS hourly - Early/frequent mobilization - Pain control, aggressive pulmonary toilet, O2 to maintain >90 CARDIAC: Chronic HTN Re-started amlodipine (hold parameters) Re-started losartan (hold parameters) Chronic HLD Re-started home pravastatin ([facility] formulary equivalent atorvastatin 10) Chronic Edema Re-started home bumetanide Chronic CAD Holding ASA until neurosurgery f/u ?Syncope Trending troponins, EKG notable for PVCs Will obtain TTE while inpatient. 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 BM: SCRIPT MANAGER RENAL: ESRD Requiring Hemodialysis Nephrology involved Staying [...] exclude potential malignancy. Alternatively, depending on the tlnau-hv-kjfs, this can potentially be reevaluated on clinically-decided follow- up examination of the intracranial hyperdense foci. [] Incidental Findings Form Completed HERVE Oscar 07/30/2019 Trauma pager [phone] Attending Addendum This patient was seen in [...] man with ESRD on TIW HD at [facility] [place] [facility] admitted with R humeral, scapular, rib fracture, [...] 59yo M with PMHx CAD s/p CABG 2014 on ASA, ESRD, [...] SpO2 O2 Flow Rate (L/min) O2 Device 07/29/192351 -- -- -- (!) 146/111 -- -- [...] 107 15 161/73 98 % -- -- 07/30/19 0127 36.5 ??C (97.7 ??F) (!) 107 15 [...] 11 151/69 100 % 1 L/min NC 07/30/19 0630 36.6 ??C (97.9 ??F) (!) 109 24 [...] limited by pain; Distal full strength RLE: 5/5 LLE: 5/5 LABS: Recent Labs 07/29/19 2359 WBC 11.3* HGB 10.9* PLATELET 135* Recent Labs 07/30/19 0610 07/29/19 235 NA 136 136 K 4.5 3.9 CL 94* 93* CO2 29 31 BUN 37* 34* CREATININE 4.89* 4.59* Recent Labs 07/29/19 2359 PT 12.1 INR 1.0 IMAGING: CT Head & CTA Neck 3/30 IMPRESSION 1. Somewhat limited head CT due [...] exclude potential malignancy. Alternatively, depending on the tqrzn-bz-dyjs, this can potentially be reevaluated on clinically-decided [...] the absence of intravenous contrast. A/P: Maurice Rudolph is a 59yo M with [...] Remainder of care per Trauma PLEASE PAGE [phone] WITH QUESTIONS Active Hospital Problems Diagnosis ??? [...] Maurice Rudolph Level of Activation: Alert MR#: [id number] [x ]Scene Call or [ ]Hospital Transfer : [id number] CC/MECHANISM OF INJURY: 59 y.o. Male s/p fall, on 07/30/2019 HISTORY OF PRESENT ILLNESS: Maurice Rudolph is a 59 y.o. male presents to [facility] [place]/p [place]. Description of events leading up to injury includes patient was walking up his stairs at home, lost control, and fell down 12 stairs. He states that the last thing he remembers before losing consciousness is the realization that he is falling. He was worked up with imaging at [facility] prior to transfer here. Primary survey [...] INSERTION performed by Erasmo Bajwa MD at [facility] ? ? PRO REPAIR COMPLEX RETINA DETACH VITRECTOMY & MEMB PEEL 04/03/2012, 04/03/12 REPAIR COMPLEX RETINAL DETACHMENT, W/ VITRECTOMY, MEMBRANE PEELING performed by Matteo Diane MD at [facility] MAIN OR ? ? PRO REPAIR COMPLEX RETINA DETACH VITRECTOMY & MEMB PEEL 07/31/2012 REPAIR COMPLEX RETINAL DETACHMENT, W/ VITRECTOMY, MEMBRANE PEELING performed by Matteo Diane MD at [facility] MAIN OR ? ? PRO REPAIR COMPLEX RETINA DETACH VITRECTOMY & MEMB PEEL 01/08/2013 REPAIR COMPLEX RETINAL DETACHMENT, W/ VITRECTOMY, MEMBRANE PEELING performed by Matteo Diane MD at [facility] MAIN OR ??? PRO [...] and arm swelling and ecchymosis; 5/5 bilateral tablet coater strength SPINE: no deformity, no stepoffs, no [...] -Close neurological observation, Q2H Neuro Checks -Imaging: [facility] at 0400 -BP control, keep SBP<160 -Hold [...] Antibiotics: None - Diet -n.p.o. - Imaging sipnax-u-sym right clavicle, x-ray right elbow ?? Spine [...] at baseline and stable on transport to [facility]. Met by trauma team and ED staff [...] on phone: None Gets together: None Attends hindu service: None Active member of club or [...] Evaluation Minutes, Physical Therapy: 30(TE-Fx 2) Liliana Petit MOON Ortiz Pager: [phone] Physical Therapy Inpatient Rehabilitation Department * Plan [...] fracture (nondisplaced) Social History: Patient lives in [place], [place] with his and son (30 years). [...] assist him) DME: shower seat, grab bar, histotechnician, sockaid, shoe horn Baseline ADL/Mobility: Pt was independent w/ ADL's and IADL's (except driving). He uses a histotechnician, sockaid and shoe horn. His son can [...] Preformed sit>stand with mod Ax2, gait belt, CABLE WIRER, pt unable to advance feet today, with [...] Minutes, Occupational Therapy: 30 2x schm Pager: [phone] JEOVANNY Peterson Occupational Therapy Rehabilitation Department * [...] deemed to be not neurologically related by BLACKSMITH SUPERVISOR. VSS. Anticipated d/c tomorrow, will continue to [...] feelings encouraged Goal: Discharge Needs Assessment 08/01/19 0267 Discharge Needs Assessment Discharge Disposition still a patient Goal: Interdisciplinary Rounds/Family Conf 08/02/19 0230 Interdisciplinary Rounds/Family Conf Participants nursing;patient * Plan of Care - Bahman Ham PT - 08/02/2019 2:34 PM EDT PHYSICAL THERAPY NOTE Attempted to see patient this afternoon but deferred secondary to being too tired after dialysis. Therapy will follow up tomorrow as appropriate/able. Bahman Ham PT, DPT Pager [phone] Inpatient Rehabilitation * Plan of Care - Deandra Hermosillo OTA - 08/02/2019 12:46 PM EDT Pt was off the floor for HD. Will continue to follow. JEOVANNY Lopes Pager [phone] * Plan of Care - Kendra Beckett [...] Ongoing (Interventions Implemented as Appropriate) 08/02/19 0230 Interdisciplinary Rounds/Family Conf Participants nursing;patient Problem: Skin [...] ADLs]: Eyes on Surveillance [continuous indirect monitoring]: Masbharathio, tele, hourly rounding, NKE [employer] GOAL OUTCOME [...] where he was, thought he was in [place] ?? Unable to come up with town [...] of mobility at this time Assessment: Maurice A Rudolph was seen today for physical therapy [...] plan as stated. Time IN / OUT: 5309-0086 Total Evaluation Minutes, Physical Therapy: 28(TEF x2) Bahman Ham PT Pager: [phone] Physical Therapy Inpatient Rehabilitation Department * Plan [...] to follow up another time. Catrachita WRIGHT Pager:[phone] Occupational Therapy * Consult Note - Jonatan [...] of ESRD on HD, CAD s/p CABGx3 ([place] 2014), obesity, DM, HTN, CVA (R basal [...] referral as an outpatient Jonatan Elias MD Bridal Consultant PGY-4 08/01/2019 Page [phone] Associated attestation - Matteo Vernon MD - [...] Ongoing (Interventions Implemented as Appropriate) 07/31/19 0745 Safety Interventions Isolation Precautions standard precautions maintained [...] AM EDT Physical Therapy Contact Note 07/31/19 4468 Rehab Evaluation Document Type contact Total Evaluation Minutes, Physical Therapy 0 Evaluation Not Performed Comment Attempted to see pt for physical therapy this AM however pt was off floor at HD. Plan to follow up tomorrow. Maegan Pedroza, PT DPT Pager #[phone] 07/31/2019 Physical Therapy Rehabilitation Department * Plan of Care - Catrachita Castellon OTA - 07/31/2019 8:44 AM EDT Occupational Therapy Note: Attempted to see patient. Pt off of floor at HD. Will follow up another time. Catrachita WRIGHT Pager:[phone] Occupational Therapy * Plan of Care - Bibiana Venegas RN - 07/31/2019 4:54 AM EDT Problem: Patient Care Overview Goal: Plan of Care Review Outcome: Ongoing (Interventions Implemented as Appropriate) 07/30/19 0232 07/30/19 2105 Plan of Care Review Progress no change [...] Ongoing (Interventions Implemented as Appropriate) 07/30/19 0600 07/30/19119907/30/192104 Daily Care Interventions Self-Care Promotion independence encouraged [...] right-handed male admitted on 07/29/[address] Ynf Dover MD for injuries sustained s/p fall [...] INSERTION performed by Erasmo Bajwa MD at [facility] ? ? PRO REPAIR COMPLEX RETINA DETACH VITRECTOMY & MEMB PEEL 04/03/2012, 04/03/12 REPAIR COMPLEX RETINAL DETACHMENT, W/ VITRECTOMY, MEMBRANE PEELING performed by Matteo Diane MD at [facility] MAIN OR ? ? PRO REPAIR COMPLEX RETINA DETACH VITRECTOMY & MEMB PEEL 07/31/2012 REPAIR COMPLEX RETINAL DETACHMENT, W/ VITRECTOMY, MEMBRANE PEELING performed by Matteo Diane MD at [facility] MAIN OR ? ? PRO REPAIR COMPLEX RETINA DETACH VITRECTOMY & MEMB PEEL 01/08/2013 REPAIR COMPLEX RETINAL DETACHMENT, W/ VITRECTOMY, MEMBRANE PEELING performed by Matteo Diane MD at [facility] MAIN OR ??? PRO [...] Physical Therapy: 55 LOLA KING, PT Pager: [phone] Physical Therapy Inpatient Rehabilitation Department * Plan [...] diabetes management and toprovide a review of rn long term care diabetes care. Injuries from H&P: - s/p [...] 8 gm carb ratio for each meal) [facility] diabetes care: Medications - Outpatient treatment regimen recommendations pending based on the hospital course. Monitoring - continue BG tid ac & hs Diet - low fat/low carb diet Exercise - weight-bearing exercise 30 min/day, as tolerated Thank you for allowing us to provide care for your patient Narcisa Guy MAGANA Endocrinology Pager [phone] 70 minutes of this 80 minute visit [...] INSERTION performed by Erasmo Bajwa MD at [facility] ? ? PRO REPAIR COMPLEX RETINA DETACH VITRECTOMY & MEMB PEEL 04/03/2012, 04/03/12 REPAIR COMPLEX RETINAL DETACHMENT, W/ VITRECTOMY, MEMBRANE PEELING performed by Matteo Diane MD at [facility] MAIN OR ? ? PRO REPAIR COMPLEX RETINA DETACH VITRECTOMY & MEMB PEEL 07/31/2012 REPAIR COMPLEX RETINAL DETACHMENT, W/ VITRECTOMY, MEMBRANE PEELING performed by Matteo Diane MD at [facility] MAIN OR ? ? PRO REPAIR COMPLEX RETINA DETACH VITRECTOMY & MEMB PEEL 01/08/2013 REPAIR COMPLEX RETINAL DETACHMENT, W/ VITRECTOMY, MEMBRANE PEELING performed by Matteo Diane MD at [facility] MAIN OR ??? PRO [...] Dr Bajwa Social History: Patient lives in [place], [place] with his and son (30 years). [...] assist him) DME: shower seat, grab bar, histotechnician, sockaid, shoe horn Baseline ADL/Mobility: Pt was independent w/ ADL's and IADL's (except driving). He uses a histotechnician, sockaid and shoe horn. His son can [...] need one-handed techs and possibly dycem Dressing: neelima Gurrola for UB dressing, dependent for LB, uses [...] been seen for occupational therapy evaluation. Maurice Rudolph presents with the following performance skill [...] and measurable assessment of functional outcome. Pager: [phone] ARLEEN YOUNGER OT 07/30/2019 Occupational Therapy Rehabilitation [...] is a 59 y.o. male presents to [facility] [place]/p fall. Description of events leading up [...] Hospitalizations Within the Past 30 Days: no [facility] admits in last 30 days. Anticipated Length Of Stay (If known): TBD Current Decision-Making Capacity: Patient is A&Ox4 Advance Care Planning: Full Code in [employer]. Lists sister Adriana Lopez( ) as the [...] for spouse. Spouse is [place] bound. [address] [facility] [address] Social & Family Supports/Community Resources: lives with son and spouse. Spouse is w[place] bound andneeds assistance with ADLs, has home health set up. Son helps as well. Extended Emergency Contact Information Primary Emergency Contact: Kaye Rudolph Relation: Spouse Behavioral Health History: denies Substance Use/Abuse:denies Health/Prescription Coverage: Primary Insurance: MEDICARE Secondary Insurance: N/A Prescription Coverage: Yes Preferred Pharmacy: [id number] [place], [place] - [address] [place] [address] AT [address] [facility] & [address] [address] Other: none Primary Care Provider: Jarad Keller APRN [phone] Patient/Caregiver Goals of Treatment: return to previous level of function Potential Needs for Transition of Care: Discussed with patient and family levels of rehab includingSNF, swing, acute and VNA home health care also discussed. Discussed need to accept first bed available when patient is medically ready. Rehab/SNF: TBD Home Health: would like VNA, ok with [facility] if indicated DME: has a cane [...] assist with transition of care planning. Vesta Ordonez RN Nurse Cooler Tender Pager [phone] * Plan of Care - Cynthia Pedroza [...] CT of head at 0800, BMP BID 08/1999, Q4 BG, Trops q6 due at 0600 [...] and right humerus. He was transported to [facility] for further work-up and management. [...] INSERTION performed by Erasmo Bajwa MD at [facility] ? ? PRO REPAIR COMPLEX RETINA DETACH VITRECTOMY & MEMB PEEL 04/03/2012, 04/03/12 REPAIR COMPLEX RETINAL DETACHMENT, W/ VITRECTOMY, MEMBRANE PEELING performed by Matteo Diane MD at [facility] MAIN OR ? ? PRO REPAIR COMPLEX RETINA DETACH VITRECTOMY & MEMB PEEL 07/31/2012 REPAIR COMPLEX RETINAL DETACHMENT, W/ VITRECTOMY, MEMBRANE PEELING performed by Matteo Diane MD at [facility] MAIN OR ? ? PRO REPAIR COMPLEX RETINA DETACH VITRECTOMY & MEMB PEEL 01/08/2013 REPAIR COMPLEX RETINAL DETACHMENT, W/ VITRECTOMY, MEMBRANE PEELING performed by Matteo Diane MD at [facility] MAIN OR ??? PRO [...] on phone: None Gets together: None Attends hindu service: None Active member of club or [...] -Close neurological observation, Q2H Neuro Checks -Imaging: [facility] at 0400 -BP control, keep SBP<160 -Hold [...] stairs at his home earlier today in [place] when he had a mechanical fall and went down roughly 14 stairs. He did have loss of consciousness, he did not ambulate after the injury. He was taken to [facility] where he was evaluated and found to have a right minimally displaced greater tuberosity fracture, a right nondisplaced clavicle fracture, and a right nondisplaced scapular fracture along with an intraparenchymal hemorrhage, multiple rib fractures on the right. He was subsequently transferred to [facility] for further evaluation and management. Orthopedics was [...] Employment: On disability since 2011 Living Situation: [place] with his MEDICATIONS: ??? levETIRAcetam (Keppra) tablet [...] (5/5) shoulder abduction, elbow flexion/extension, wrist flexion/extension, tablet coater, EPL,AIN, IO Brisk capillary refill distally 2+ [...] Motor intact (5/5) elbow flexion/extension, wrist flexion/extension, tablet coater, EPL, AIN, IO Brisk capillary refill distally [...] Antibiotics: None - Diet -n.p.o. - Imaging nyrnde-e-sdv right clavicle, x-ray right elbow - Discuss [...] Center 08/29/2019 2:30 PM Ceasar Roy MD [facility] ENDO [facility] 10/12/2019 2:30 PM Harmeet Arvizu MD [facility] OPHT 4B [facility] documented in this encounter Plan of Treatment [...] Glucose, POC 97 65 - 199 mg/dL [facility] Comment: Supplemental ranges: <140 mg/dL before meals <180 mg/dL all other times of the day Blood specimen (specimen) 08/04/2019 12:59 PM EDT 08/04/2019 12:59 PM EDT Eliot Cohen MD POINT OF CARE TEST O RDERABLES [facility] [place] [address] * POCT Glucose (08/04/2019 11:34 AM EDT) Glucose, POC 105 65 - 199 mg/dL [facility] Comment: Supplemental ranges: <140 mg/dL before meals <180 mg/dL all other times of the day Blood specimen (specimen) 08/04/2019 11:34 AM EDT 08/04/2019 11:34 AM EDT Eliot Cohen MD POINT OF CARE TEST O RDERAROSIE [facility] [place] [address] * POCT Glucose (08/04/2019 7:35 AM EDT) Glucose, POC 140 65 - 199 mg/dL [facility] Comment: Supplemental ranges: <140 mg/dL before meals <180 mg/dL all other times of the day Blood specimen (specimen) 08/04/2019 7:35 AM EDT 08/04/2019 7:35 AM EDT Eliot Cohen MD POINT OF CARE TEST O RDERAROSIE Performing Organization Address City/[facility]/ZIP Co de Phone Number [facility] [place] [address] * POCT Glucose (08/04/2019 3:54 AM EDT) Glucose, POC 125 65 - 199 mg/dL [facility] Comment: Supplemental ranges: <140 mg/dL before meals <180 mg/dL all other times of the day Blood specimen (specimen) 08/04/2019 3:54 AM EDT 08/04/2019 3:54 AM EDT Eliot Cohen MD POINT OF CARE TEST O RDERAROSIE [facility] [place] [address] * POCT Glucose (08/03/2019 11:47 PM EDT) Glucose, POC 135 65 - 199 mg/dL [facility] Comment: Supplemental ranges: <140 mg/dL before meals <180 mg/dL all other times of the day Blood specimen (specimen) 08/03/2019 11:47 PM EDT 08/03/2019 11:47 PM EDT Eliot Cohen MD POINT OF CARE TEST O RDERAROSIE [facility] [place] [address] * POCT Glucose (08/03/2019 7:50 PM EDT) Glucose, POC 184 65 - 199 mg/dL [facility] Comment: Supplemental ranges: <140 mg/dL before meals <180 mg/dL all other times of the day Blood specimen (specimen) 08/03/2019 7:50 PM EDT 08/03/2019 7:50 PM EDT Eliot Cohen MD POINT OF CARE TEST O FREDERICKERAROSIE Performing Organization Address City/[facility]/ZIP Co de Phone Number [facility] [place] [address] * POCT Glucose (08/03/2019 3:37 PM EDT) Glucose, POC 175 65 - 199 mg/dL [facility] Comment: Supplemental ranges: <140 mg/dL before meals <180 mg/dL all other times of the day Blood specimen (specimen) 08/03/2019 3:37 PM EDT 08/03/2019 3:37 PM EDT Eliot Cohen MD POINT OF CARE TEST O RDERAROSIE [facility] [place] [address] * POCT Glucose (08/03/2019 11:46 AM EDT) Glucose, POC 155 65 - 199 mg/dL [facility] Comment: Supplemental ranges: <140 mg/dL before meals <180 mg/dL all other times of the day Blood specimen (specimen) 08/03/2019 11:46 AM EDT 08/03/2019 11:46 AM EDT Eliot Cohen MD POINT OF CARE TEST O ANTONETTE Performing Organization Address [facility] Co de Phone Number [facility] [place] [address] * POCT Glucose (08/03/2019 8:50 AM EDT) Glucose, POC 156 65 - 199 mg/dL [facility] Comment: Supplemental ranges: <140 mg/dL before meals <180 mg/dL all other times of the day Blood specimen (specimen) 08/03/2019 8:50 AM EDT 08/03/2019 8:50 AM EDT Eliot Cohen MD POINT OF CARE TEST O ANTONETTE Performing Organization Address [facility] de Phone Number [facility] [place] [address] * (ABNORMAL) Differential, Automated (08/03/2019 7:15 AM EDT) Pathologist [facility] Neutrophil % 76.7 % [facility] Neutrophil Absolute 4.50 1.70 - 6.10 x10(3)/mc L [facility] Lymph % 8.9 % [facility] Lymphocytes Abs 0.5(L) 0.9 - 3.2 x10(3)/mc L [facility] Monocyte % 10.7 % [facility] Monocyte Abs 0.6 0.3 - 0.9 x10(3)/mc L [facility] Eos % 2.0 % [facility] Eosinophils Abs 0.1 0.0 - 0.4 x10(3)/ L [facility] Basophil % 0.7 % [facility] Baso Absolute 0.0 0.0 - 0.1 x10(3)/[facility] Immature Gran % 1.00 % [facility] Comment: Immature granulocytes(IG's)percentage and absolute count will include metamyelocytes, myelocytes, and promyelocytes. Blood smears from CBCs yielding IG's will be scanned manually for concordance. If this scan disagrees with the automated IG or if promyelocytes are noted, a manual differential will be performed. Immature Gran Absolute 0.06(H) 0.00 - 0.04 x10(3)/[facility] Blood specimen (specimen) 08/03/2019 7:15 AM EDT 08/03/2019 7:24 AM EDT Narrative Resulting Agency Comment Spec In Lab Sandhya August APRN HEMATOLOGY JAY BEVERLY [facility] [place] [address] * (ABNORMAL) Hemogram (08/03/2019 7:15 AM EDT) White Blood Cell 5.9 4.0 - 9.5 x10(3)/[facility] Red Blood Cell 3.01(L) 4.58 - 5.54 x10(6)/ L [facility] Hemoglobin 9.6(L) 13.7 - 16.5 gm/dL [facility] Hematocrit 29.8(L) 40.5 - 48.5 % [facility] Mean Cell Volume 99.0(H) 82.9 - 93.1 fL [facility] Mean Cell Hemoglobin 31.9 27.5 - 32.1 pg [facility] Mean Cell Hemoglobin Concentration 32.2 32.0 - 35.7 gm/dL [facility] Platelet 153 145 - 357 x10(3)/[facility] RDW Standard Deviation 53.1(H) 36.0 - 45.0 fL [facility] RDW coefficient of variation 14.9(H) 11.4 - 13.8 % [facility] Mean Platelet Volume 9.8 7.6 - 12.9 fL [facility] NRBC% auto 0.0 % [facility] NRBC Absolute 0.000 0.000 - 0.000 x10(3)/mc L [facility] Blood specimen (specimen) 08/03/2019 7:15 AM EDT 08/03/2019 7:24 AM EDT Narrative Resulting Agency Comment Spec In Lab Sandhya August APRN HEMATOLOGY JAY BEVERLY [facility] [place] [address] * (ABNORMAL) Comprehensive metabolic panel (non-fasting) (08/03/2019 7:15 AM EDT) Glucose 140 65 - 199 mg/dL [facility] Comment:Diabetes: >=200 mg/d L plus symptoms Blood Urea Nitrogen 43(H) 10 - 20 mg/dL [facility] Creatinine 5.44(H) 0.80 - 1.50 mg/dL [facility] Sodium 132(L) 135 - 145 mmol/L [facility] Potassium 4.3 3.5 - 5.0 mmol/L [facility] Comment: Please note: ??Patients with WBC >100,000 may have falsely elevated Potassium levels. ??For accurate Potassium quantification in these patients send serum separator tube (gold top) for subsequent determinations. ??Contact the Clinical Chemistry Laboratory if there are any questions. Chloride 89(L) 98 - 107 mmol/L [facility] Carbon Dioxide 27 22 - 31 mmol/L [facility] Anion Gap 16(H) 5 - 15 mmol/L [facility] Calcium 8.9 8.5 - 10.5 mg/dL [facility] Protein, Total 8.3(H) 6.1 - 8.0 gm/dL [facility] Albumin 3.7 3.2 - 5.2 gm/dL [facility] Aspartate Aminotransferase 21 0 - 39 unit/L [facility] Alanine Aminotransferase 20 0 - 55 unit/L [facility] Alkaline Phosphatase 96 40 - 130 unit/L [facility] Bilirubin, Total 0.5 0.2 - 1.3 mg/dL [facility] Est Glomerular Filtration Rate 11(L) >=60 mL/min/1. 73 m?? [facility] Comment: The eGFR was calculated using the CKD-EPI equation. As with all creatinine based estimates of kidney function, eGFR values calculated with the CKD-EPI equation are not accurate in patients with acute kidney failure, extremes of body mass or the acutely ill. http://[employer]/[facility] eGFR 12(L) >=60 mL/min/1. 73 m?? [facility] Comment: The eGFR was calculated using the CKD-EPI equation. As with all creatinine based estimates of kidney function, eGFR values calculated with the CKD-EPI equation are not accurate in patients with acute kidney failure, extremes of body mass or the acutely ill. [email or web address] Blood specimen (specimen) 08/03/2019 7:15 AM EDT 08/03/2019 7:24 AM EDT Narrative Resulting Agency Comment Spec In Lab Sandhya August APRN CHEMISTRY ORDER ROBBIE [facility] [place] [address] * Ammonia (08/03/2019 7:14 AM EDT) Ammonia 16 16 - 60 mcmol/L [facility] Blood specimen (specimen) 08/03/2019 7:14 AM EDT 08/03/2019 7:21 AM EDT Narrative Resulting Agency Comment Spec In Lab Sandhya August APRN CHEMISTRY ORDER ROBBIE Performing Organization Address City/[facility]/ZIP Co de Phone Number [facility] [place] [address] * POCT Glucose (08/03/2019 4:58 AM EDT) Glucose, POC 156 65 - 199 mg/dL [facility] Comment: Supplemental ranges: <140 mg/dL before meals <180 mg/dL all other times of the day Blood specimen (specimen) 08/03/2019 4:58 AM EDT 08/03/2019 4:58 AM EDT Eliot Cohen MD POINT OF CARE TEST O RDERAROSIE Performing Organization Address City/[facility]/ZIP Co de Phone Number [facility] [place] [address] * POCT Glucose (08/02/2019 11:32 PM EDT) Glucose, POC 139 65 - 199 mg/dL [facility] Comment: Supplemental ranges: <140 mg/dL before meals <180 mg/dL all other times of the day Blood specimen (specimen) 08/02/2019 11:32 PM EDT 08/02/2019 11:32 PM EDT Eliot Cohen MD POINT OF CARE TEST O ANTONETTE Performing Organization Address City/[facility]/ZIP Co de Phone Number [facility] [place] [address] * POCT Glucose (08/02/2019 7:36 PM EDT) Glucose, POC 150 65 - 199 mg/dL [facility] Comment: Supplemental ranges: <140 mg/dL before meals <180 mg/dL all other times of the day Blood specimen (specimen) 08/02/2019 7:36 PM EDT 08/02/2019 7:36 PM EDT Eliot Cohen MD POINT OF CARE TEST O RDERABLES Performing Organization Address [facility] Co de Phone Number [facility] [place] [address] * POCT Glucose (08/02/2019 4:02 PM EDT) Glucose, POC 183 65 - 199 mg/dL [facility] Comment: Supplemental ranges: <140 mg/dL before meals <180 mg/dL all other times of the day Blood specimen (specimen) 08/02/2019 4:02 PM EDT 08/02/2019 4:02 PM EDT Eliot Cohen MD POINT OF CARE TEST O RDERAROSIE Performing Organization Address [facility] Co de Phone Number [facility] [place] [address] * POCT Glucose (08/02/2019 1:22 PM EDT) Glucose, POC 161 65 - 199 mg/dL [facility] Comment: Supplemental ranges: <140 mg/dL before meals <180 mg/dL all other times of the day Blood specimen (specimen) 08/02/2019 1:22 PM EDT 08/02/2019 1:22 PM EDT Eliot Cohen MD POINT OF CARE TEST O RDERAROSIE Performing Organization Address [facility] Co de Phone Number [facility] [place] [address] * (ABNORMAL) CMP w/fasting Glucose (08/02/2019 6:42 AM EDT) Glucose Fasting 156(H) 65 - 99 mg/dL [facility] Comment: ?Fasting* Glucose Interpretive Criteria [...] of Diabetes Mellitus, Position Statement from the [place] [employer]. ??Diabetes Care, Volume 33, Supplement 1, May 2009 Blood Urea Nitrogen 50(H) 10 - 20 mg/dL [facility] Creatinine 7.35(H) 0.80 - 1.50 mg/dL [facility] Comment:result rechecked-ms Sodium 130(L) 135 - 145 mmol/L [facility] Potassium 4.7 3.5 - 5.0 mmol/L [facility] Comment: Please note: ??Patients with WBC >100,000 may have falsely elevated Potassium levels. ??For accurate Potassium quantification in these patients send serum separator tube (gold top) for subsequent determinations. ??Contact the Clinical Chemistry Laboratory if there are any questions. Chloride 88(L) 98 - 107 mmol/L [facility] Carbon Dioxide 26 22 - 31 mmol/L [facility] Anion Gap 16(H) 5 - 15 mmol/L [facility] Calcium 8.6 8.5 - 10.5 mg/dL [facility] Protein, Total 7.6 6.1 - 8.0 gm/dL [facility] Albumin 3.6 3.2 - 5.2 gm/dL [facility] Aspartate Aminotransferase 22 0 - 39 unit/L [facility] Alanine Aminotransferase 22 0 - 55 unit/L [facility] Alkaline Phosphatase 86 40 - 130 unit/L [facility] Bilirubin, Total 0.6 0.2 - 1.3 mg/dL [facility] Est Glomerular Filtration Rate 7(L) >=60 mL/min/1. 73 m?? [facility] Comment: The eGFR was calculated using the CKD-EPI equation. As with all creatinine based estimates of kidney function, eGFR values calculated with the CKD-EPI equation are not accurate in patients with acute kidney failure, extremes of body mass or the acutely ill. http://[employer]/[facility] eGFR 8(L) >=60 mL/min/1. 73 m?? [facility] Comment: The eGFR was calculated using the CKD-EPI equation. As with all creatinine based estimates of kidney function, eGFR values calculated with the CKD-EPI equation are not accurate in patients with acute kidney failure, extremes of body mass or the acutely ill. [email or web address] Blood specimen (specimen) 08/02/2019 6:42 AM EDT 08/02/2019 6:48 AM EDT Narrative Resulting Agency Comment Spec In Lab Sandhya August APRN CHEMISTRY ORDER ROBBIE Performing Organization Address [facility]/ZIP Co de Phone Number [facility] [place] [address] * POCT Glucose (08/02/2019 6:33 AM EDT) Glucose, POC 155 65 - 199 mg/dL [facility] Comment: Supplemental ranges: <140 mg/dL before meals <180 mg/dL all other times of the day Blood specimen (specimen) 08/02/2019 6:33 AM EDT 08/02/2019 6:33 AM EDT Eliot Cohen MD POINT OF CARE TEST O ANTONETTE [facility] [place] [address] * POCT Glucose (08/02/2019 4:16 AM EDT) Glucose, POC 132 65 - 199 mg/dL [facility] Comment: Supplemental ranges: <140 mg/dL before meals <180 mg/dL all other times of the day Blood specimen (specimen) 08/02/2019 4:16 AM EDT 08/02/2019 4:16 AM EDT Eliot Cohen MD POINT OF CARE TEST O RDERABLES Performing Organization Address [facility]/ZIP Co de Phone Number [facility] [place] [address] * POCT Glucose (08/01/2019 11:57 PM EDT) Glucose, POC 181 65 - 199 mg/dL [facility] Comment: Supplemental ranges: <140 mg/dL before meals <180 mg/dL all other times of the day Blood specimen (specimen) 08/01/2019 11:57 PM EDT 08/01/2019 11:57 PM EDT Eliot Cohen MD POINT OF CARE TEST O RDERABLES Performing Organization Address [facility] Co de Phone Number [facility] [place] [address] * POCT Glucose (08/01/2019 7:18 PM EDT) Glucose, POC 183 65 - 199 mg/dL [facility] Comment: Supplemental ranges: <140 mg/dL before meals <180 mg/dL all other times of the day Blood specimen (specimen) 08/01/2019 7:18 PM EDT 08/01/2019 7:18 PM EDT Eliot Cohen MD POINT OF CARE TEST O RDERABLES Performing Organization Address City/[facility] Co de Phone Number [facility] [place] [address] * (ABNORMAL) POCT Glucose (08/01/2019 4:21 PM EDT) Glucose, POC 224(H) 65 - 199 mg/dL [facility] Comment: Supplemental ranges: <140 mg/dL before meals <180 mg/dL all other times of the day Blood specimen (specimen) 08/01/2019 4:21 PM EDT 08/01/2019 4:21 PM EDT Eliot Cohen MD POINT OF CARE TEST O RDERABLES Performing Organization Address [facility] Co de Phone Number [facility] [place] [address] * (ABNORMAL) POCT Glucose (08/01/2019 12:32 PM EDT) Glucose, POC 204(H) 65 - 199 mg/dL [facility] Comment: Supplemental ranges: <140 mg/dL before meals <180 mg/dL all other times of the day Blood specimen (specimen) 08/01/2019 12:32 PM EDT 08/01/2019 12:32 PM EDT Eliot Cohen MD POINT OF CARE TEST O RDERABLES Performing Organization Address [facility] Co de Phone Number [facility] [place] [address] * POCT Glucose (08/01/2019 8:22 AM EDT) Glucose, POC 188 65 - 199 mg/dL [facility] Comment: Supplemental ranges: <140 mg/dL before meals <180 mg/dL all other times of the day Blood specimen (specimen) 08/01/2019 8:22 AM EDT 08/01/2019 8:22 AM EDT Eliot Cohen MD POINT OF CARE TEST O RDERABLES Performing Organization Address [facility] Co de Phone Number [facility] [place] [address] * (ABNORMAL) Differential, Automated (08/01/2019 6:25 AM EDT) Neutrophil % 79.8 % [facility] Neutrophil Absolute 6.35(H) 1.70 - 6.10 x10(3)/mc L [facility] Lymph % 7.2 % [facility] Lymphocytes Abs 0.6(L) 0.9 - 3.2 x10(3)/mc L [facility] Monocyte % 9.8 % [facility] Monocyte Abs 0.8 0.3 - 0.9 x10(3)/[facility] Eos % 2.0 % [facility] Eosinophils Abs 0.2 0.0 - 0.4 x10(3)/[facility] Basophil % 0.6 % [facility] Baso Absolute 0.0 0.0 - 0.1 x10(3)/[facility] Immature Gran % 0.60 % [facility] Comment: Immature granulocytes(IG's)percentage and absolute count will include metamyelocytes, myelocytes, and promyelocytes. Blood smears from CBCs yielding IG's will be scanned manually for concordance. If this scan disagrees with the automated IG or if promyelocytes are noted, a manual differential will be performed. Immature Gran Absolute 0.05(H) 0.00 - 0.04 x10(3)/[facility] Blood specimen (specimen) 08/01/2019 6:25 AM EDT 08/01/2019 6:32 AM EDT Narrative Resulting Agency Comment Spec In Lab Sandhya August APRN HEMATOLOGY [place] Performing Organization Address City/State/[facility] Co de Phone Number [facility] [place] [address] * (ABNORMAL) Hemogram (08/01/2019 6:25 AM EDT) White Blood Cell 8.0 4.0 - 9.5 x10(3)/[facility] Red Blood Cell 2.85(L) 4.58 - 5.54 x10(6)/[facility] Hemoglobin 9.1(L) 13.7 - 16.5 gm/dL [facility] Hematocrit 28.2(L) 40.5 - 48.5 % [facility] Mean Cell Volume 98.9(H) 82.9 - 93.1 fL [facility] Mean Cell Hemoglobin 31.9 27.5 - 32.1 pg [facility] Mean Cell Hemoglobin Concentration 32.3 32.0 - 35.7 gm/dL [facility] Platelet 128(L) 145 - 357 x10(3)/mc L [facility] RDW Standard Deviation 52.0(H) 36.0 - 45.0 fL [facility] RDW coefficient of variation 14.5(H) 11.4 - 13.8 % [facility] Mean Platelet Volume 10.1 7.6 - 12.9 fL [facility] NRBC% auto 0.0 % [facility] NRBC Absolute 0.000 0.000 - 0.000 x10(3)/mc L [facility] Blood specimen (specimen) 08/01/2019 6:25 AM EDT 08/01/2019 6:32 AM EDT Narrative Resulting Agency Comment Spec In Lab Sandhya August APRN HEMATOLOGY JAY BEVERLY [facility] [place] [address] * (ABNORMAL) Troponin (08/01/2019 6:25 AM EDT) Troponin-T 0.12(H) 0.00 - 0.00 ng/mL [facility] Comment: The 99th percentile for Troponin T is less than 0.01 ng/mL, any detectable cTnT concentration using this assay should be considered elevated. According to the third universal definition of myocardial infarction the following criteria with a clinical presentation consistent with acute myocardial ischemia meets the diagnosis for a myocardial infarction (VT). Detection of a rise and/or fall of cTnT, with at least one value greater than the 99th percentile (> or = 0.01) and with at least one of the following ?? Symptoms of ischemia ?? New or presumed new significant [id number] wave (ST-T) changes or new left bundle [...] additional sample may be indicated. Reference: Third [place] Definition of Myocardial Infarction. Journal of the [place] [employer] 2012;60:1581-98 Blood specimen (specimen) 08/01/2019 6:25 AM EDT 08/01/2019 6:32 AM EDT Narrative Resulting Agency Comment Spec In Lab Sandhya August [employer]ACK[employer] SUPERVISOR CHEMISTRY ORDER ROBBIE [facility] [place] [address] * (ABNORMAL) Comprehensive metabolic panel (non-fasting) (08/01/2019 6:25 AM EDT) Glucose 180 65 - 199 mg/dL [facility] Comment:Diabetes: >=200 mg/d L plus symptoms Blood Urea Nitrogen 33(H) 10 - 20 mg/dL [facility] Creatinine 5.44(H) 0.80 - 1.50 mg/dL [facility] Sodium 130(L) 135 - 145 mmol/L [facility] Potassium 5.0 3.5 - 5.0 mmol/L [facility] Comment: Please note: ??Patients with WBC >100,000 may have falsely elevated Potassium levels. ??For accurate Potassium quantification in these patients send serum separator tube (gold top) for subsequent determinations. ??Contact the Clinical Chemistry Laboratory if there are any questions. Chloride 91(L) 98 - 107 mmol/L [facility] Carbon Dioxide 25 22 - 31 mmol/L [facility] Anion Gap 14 5 - 15 mmol/L [facility] Calcium 8.5 8.5 - 10.5 mg/dL [facility] Protein, Total 7.4 6.1 - 8.0 gm/dL [facility] Albumin 3.4 3.2 - 5.2 gm/dL [facility] Aspartate Aminotransferase 29 0 - 39 unit/L [facility] Alanine Aminotransferase 23 0 - 55 unit/L [facility] Alkaline Phosphatase 87 40 - 130 unit/L [facility] Bilirubin, Total 0.5 0.2 - 1.3 mg/dL [facility] Est Glomerular Filtration Rate 11(L) >=60 mL/min/1. 73 m?? [facility] Comment: The eGFR was calculated using the CKD-EPI equation. As with all creatinine based estimates of kidney function, eGFR values calculated with the CKD-EPI equation are not accurate in patients with acute kidney failure, extremes of body mass or the acutely ill. http://[employer]/[facility]INGOnk[facility] eGFR 12(L) >=60 mL/min/1. 73 m?? [facility] Comment: The eGFR was calculated using the CKD-EPI equation. As with all creatinine based estimates of kidney function, eGFR values calculated with the CKD-EPI equation are not accurate in patients with acute kidney failure, extremes of body mass or the acutely ill. http://[employer]/[facility] Blood specimen (specimen) 08/01/2019 6:25 AM EDT 08/01/2019 6:32 AM EDT Narrative Resulting Agency Comment Spec In Lab Sandhya August APRN CHEMISTRY ORDER ROBBIE [facility] [place] [address] * POCT Glucose (08/01/2019 3:43 AM EDT) Glucose, POC 130 65 - 199 mg/dL [facility] Comment: Supplemental ranges: <140 mg/dL before meals <180 mg/dL all other times of the day Blood specimen (specimen) 08/01/2019 3:43 AM EDT 08/01/2019 3:43 AM EDT Eliot Cohen MD POINT OF CARE TEST O RDERABLES [facility] [place] [address] * POCT Glucose (07/31/2019 11:33 PM EDT) Glucose, POC 175 65 - 199 mg/dL [facility] Comment: Supplemental ranges: <140 mg/dL before meals <180 mg/dL all other times of the day Blood specimen (specimen) 07/31/2019 11:33 PM EDT 07/31/2019 11:33 PM EDT Eliot Cohen MD POINT OF CARE TEST O RDERABLES [facility] [place] [address] * POCT Glucose (07/31/2019 7:54 PM EDT) Glucose, POC 178 65 - 199 mg/dL [facility] Comment: Supplemental ranges: <140 mg/dL before meals <180 mg/dL all other times of the day Blood specimen (specimen) 07/31/2019 7:54 PM EDT 07/31/2019 7:54 PM EDT Eliot Cohen MD POINT OF CARE TEST O RDERAROSIE [facility] [place] [address] * POCT Glucose (07/31/2019 4:04 PM EDT) Glucose, POC 166 65 - 199 mg/dL [facility] Comment: Supplemental ranges: <140 mg/dL before meals <180 mg/dL all other times of the day Blood specimen (specimen) 07/31/2019 4:04 PM EDT 07/31/2019 4:04 PM EDT Eliot Cohen MD POINT OF CARE TEST O RDERABLES Performing Organization Address [facility]/ZIP Co de Phone Number [facility] [place] [address] * (ABNORMAL) Troponin (07/31/2019 3:30 PM EDT) [facility] Troponin-T 0.10(H) 0.00 - 0.00 ng/mL [facility] Comment: The 99th percentile for Troponin T is less than 0.01 ng/mL, any detectable cTnT concentration using this assay should be considered elevated. According to the third universal definition of myocardial infarction the following criteria with a clinical presentation consistent with acute myocardial ischemia meets the diagnosis for a myocardial infarction (VT). Detection of a rise and/or fall of cTnT, with at least one value greater than the 99th percentile (> or = 0.01) and with at least one of the following ?? Symptoms of ischemia ?? New or presumed new significant YQ-tebvhth-R wave (ST-T) changes or new left bundle [...] additional sample may be indicated. Reference: Third [place] Definition of Myocardial Infarction. Journal of the [place] [employer] 2012;60:1581-98 Blood specimen (specimen) 07/31/2019 3:30 PM EDT 07/31/2019 3:44 PM EDT Narrative Resulting Agency Comment Spec In Lab Sandhya August BLACKSMITH SUPERVISOR CHEMISTRY ORDER ROBBIE Performing Organization Address [facility]/ZIP Co de Phone Number [facility] [place] [address] * EKG 12 Lead (07/31/2019 3:10 PM EDT) Ventricular rate 113 BPM MUSE SYSTEM Atrial Rate 113 BPM MUSE SYSTEM P-R Interval 184 ms MUSE SYSTEM QRS Duration 96 ms MUSE SYSTEM Q-T Interval 320 ms MUSE SYSTEM QTC Calculated (Bezet) 438 ms MUSE SYSTEM Calculated P Burt 63 degrees MUSE SYSTEM Calculated R Burt 57 degrees MUSE SYSTEM Calculated T Burt 28 degrees MUSE SYSTEM INTERPRETATION Sinus tachycardia with frequent Premature ventricular complexes Abnormal ECG When compared with ECG of 31-JUL-2019 05:49, Fusion complexes are no longer Present Confirmed by MD MARSHALL DAVID ([id number]) on 08/01/2019 8:38:22 AM MUSE SYSTEM 07/31/2019 3:10 PM EDT 08/01/2019 8:38 AM EDT Sandhya Morro August BLACKSMITH SUPERVISOR ECG ORDERABLES MUSE SYSTEM * ECHO COMPLETE W CONTRAST (07/31/2019 2:25 PM EDT) EF 60 HEARTLAB SYSTEM Anatomical Region Laterality Modality Other 07/31/2019 Narrative 07/31/2019 3:10 PM EDT Procedure: ?Transthoracic Echocardiogram Patient: ?FERNANDA Gurrola ?(Age): 1960(59y) Med Rec#: ? [id number] ?Sex: ?M ? [place] [facility]Ht / Wt: ??162(cm)/103(kg) Pt. Loc: ?Adult Floor ? BSA: ?2.06 Study Date: ?? 07/31/2019 ?Pt. Type: Inpatient Tape: ? Referring: Aaron Dover Referring: YANELI Reading: Dev Hernandez ??([id number]) Cigar Sorter: Efraín Heredia Diagnosis: *Unspecified fall, initial encounter [...] ? Mid-Inferior ?Normal ? Mid-Inferoseptal ?Normal ? [place]-Septal ? Normal ? [place]-Anterior ? Normal ? [place]-Lateral ?Normal ? [place]-Inferior ? Normal ? [place]-Tip ?Normal ? This report has been electronically signed by: Dev Hernandez MD ? 07/31/2019 15:10:05 Images reviewed and interpretation verified [facility] Cardiac Ultrasound Laboratory Procedure Note Dev Hernandez MD - 07/31/2019 Procedure: Transthoracic Echocardiogram Patient: FERNANDA Gurrola (Age): 1960(59y) Med Rec#: [id number] Sex: M [place] [facility] Ht / Wt: 162(cm)/103(kg) Pt. Loc: Adult Floor BSA: 2.06 Study Date: 07/31/2019 Pt. Type: Inpatient Tape: Referring: Aaron Dover Referring: YANELI Reading: Dev Hernandez ([id number]) Cigar Sorter: Efraín Heredia Diagnosis: *Unspecified fall, initial encounter [...] Normal Mid-Posterolateral Normal Mid-Inferior Normal Mid-Inferoseptal Normal [place]-Septal Normal [place]-Anterior Normal [place]-Lateral Normal [place]-Inferior Normal [place]-Tip Normal This report has been electronically signed by: Dev Hernandez MD 07/31/2019 15:10:05 Images reviewed and interpretation verified [facility] Cardiac Ultrasound Laboratory Aaron Dover MD ECHO ORDERABLES * POCT Glucose (07/31/2019 1:13 PM EDT) Glucose, POC 122 65 - 199 mg/dL [facility] Comment: Supplemental ranges: <140 mg/dL before meals <180 mg/dL all other times of the day Blood specimen (specimen) 07/31/2019 1:13 PM EDT 07/31/2019 1:13 PM EDT Eliot Cohen MD POINT OF CARE TEST O RDERABLES [facility] [place] [address] * POCT Glucose (07/31/2019 7:44 AM EDT) Glucose, POC 148 65 - 199 mg/dL [facility] Comment: Supplemental ranges: <140 mg/dL before meals <180 mg/dL all other times of the day Blood specimen (specimen) 07/31/2019 7:44 AM EDT 07/31/2019 7:44 AM EDT Eliot Cohen MD POINT OF CARE TEST O RDERABLES Performing Organization Address City/[facility]/ZIP Co de Phone Number [facility] [place] [address] * EKG 12 Lead (07/31/2019 5:49 AM EDT) Ventricular rate 108 BPM MUSE SYSTEM Atrial Rate 108 BPM MUSE SYSTEM P-R Interval 192 ms MUSE SYSTEM QRS Duration 98 ms MUSE SYSTEM Q-T Interval 336 ms MUSE SYSTEM QTC Calculated (Bezet) 450 ms MUSE SYSTEM Calculated P Burt 58 degrees MUSE SYSTEM Calculated R Burt 51 degrees MUSE SYSTEM Calculated T Burt 5 degrees MUSE SYSTEM INTERPRETATION Sinus tachycardia Occasional Premature ventricular complexes and Fusion complexes Cannot rule out Inferior infarct (cited on or before 30-JUL-2019) Poor R-wave progression Abnormal ECG When compared with ECG of 30-JUL-2019 08:59, Fusion complexes are now Present Confirmed by MD David, Dev Barcenas ([id number]) on 07/31/2019 7:59:11 AM MUSE SYSTEM 07/31/2019 5:49 AM EDT 07/31/2019 7:59 AM EDT Eliot Cohen MD ECG ORDERABLES Performing Organization Address City/[facility]/ZIP Co de Phone Number MUSE SYSTEM * (ABNORMAL) Differential, Automated (07/31/2019 4:20 AM EDT) Neutrophil % 71.2 % [facility] Neutrophil Absolute 5.20 1.70 - 6.10 x10(3)/mc L [facility] Lymph % 12.7 % [facility] Lymphocytes Abs 0.9 0.9 - 3.2 x10(3)/ L [facility] Monocyte % 8.5 % [facility] Monocyte Abs 0.6 0.3 - 0.9 x10(3)/ L [facility] Eos % 6.4 % [facility] Eosinophils Abs 0.5(H) 0.0 - 0.4 x10(3)/ L [facility] Basophil % 0.4 % [facility] Baso Absolute 0.0 0.0 - 0.1 x10(3)/[facility] Immature Gran % 0.80 % [facility] Comment: Immature granulocytes(IG's)percentage and absolute count will include metamyelocytes, myelocytes, and promyelocytes. Blood smears from CBCs yielding IG's will be scanned manually for concordance. If this scan disagrees with the automated IG or if promyelocytes are noted, a manual differential will be performed. Immature Gran Absolute 0.06(H) 0.00 - 0.04 x10(3)/ L [facility] Blood specimen (specimen) 07/31/2019 4:20 AM EDT 07/31/2019 4:35 AM EDT Narrative Resulting Agency Comment Spec In Lab Chantale EDGAR HEMATOLOGY ORDERABLE S [facility] [place] [address] * (ABNORMAL) Hemogram (07/31/2019 4:20 AM EDT) White Blood Cell 7.3 4.0 - 9.5 x10(3)/[facility] LAB[facility]AT[facility] Red Blood Cell 2.95(L) 4.58 - 5.54 x10(6)/ L [facility] Hemoglobin 9.2(L) 13.7 - 16.5 gm/dL [facility] Hematocrit 28.6(L) 40.5 - 48.5 % [facility] Mean Cell Volume 96.9(H) 82.9 - 93.1 fL [facility] Mean Cell Hemoglobin 31.2 27.5 - 32.1 pg [facility] Mean Cell Hemoglobin Concentration 32.2 32.0 - 35.7 gm/dL [facility] Platelet 128(L) 145 - 357 x10(3)/mc L [facility] RDW Standard Deviation 49.7(H) 36.0 - 45.0 fL [facility] RDW coefficient of variation 14.5(H) 11.4 - 13.8 % [facility] Mean Platelet Volume 10.7 7.6 - 12.9 fL [facility] NRBC% auto 0.0 % [facility] NRBC Absolute 0.000 0.000 - 0.000 x10(3)/mc L [facility] Blood specimen (specimen) 07/31/2019 4:20 AM EDT 07/31/2019 4:35 AM EDT Narrative Resulting Agency Comment Spec In Lab Chantale EDGAR HEMATOLOGY ORDERABLE S Performing Organization Address City/State/[facility] Co de Phone Number [facility] [place] [address] * (ABNORMAL) Troponin (07/31/2019 4:20 AM EDT) Troponin-T 0.09(H) 0.00 - 0.00 ng/mL [facility] Comment: The 99th percentile for Troponin T is less than 0.01 ng/mL, any detectable cTnT concentration using this assay should be considered elevated. According to the third universal definition of myocardial infarction the following criteria with a clinical presentation consistent with acute myocardial ischemia meets the diagnosis for a myocardial infarction (VT). Detection of a rise and/or fall of cTnT, with at least one value greater than the 99th percentile (> or = 0.01) and with at least one of the following ?? Symptoms of ischemia ?? New or presumed new significant MB-uobqzna-E wave (ST-T) changes or new left bundle [...] additional sample may be indicated. Reference: Third [place] Definition of Myocardial Infarction. Journal of the [place] [employer] 2012;60:1581-98 Blood specimen (specimen) 07/31/2019 4:20 AM EDT 07/31/2019 4:35 AM EDT Narrative Resulting Agency Comment Spec In Lab Aaron Dover MD CHEMISTRY ORDERABLES Performing Organization Address [facility] Co de Phone Number [facility] [place] [address] * Magnesium (07/31/2019 4:20 AM EDT) Magnesium 0.92 0.69 - 1.07 mmol/L [facility] Blood specimen (specimen) 07/31/2019 4:20 AM EDT 07/31/2019 4:35 AM EDT Narrative Resulting Agency Comment Spec In Lab Aaron Dover MD CHEMISTRY ORDERABLES Performing Organization Address [facility] Co de Phone Number [facility] [place] [address] * (ABNORMAL) Basic Metabolic Panel (non-fasting) (07/31/2019 4:20 AM EDT) Glucose 110 65 - 199 mg/dL [facility] Comment:Diabetes: >=200 mg/d L plus symptoms Blood Urea Nitrogen 48(H) 10 - 20 mg/dL [facility] Creatinine 6.13(H) 0.80 - 1.50 mg/dL [facility] Comment:result rechecked-[facility] Sodium 133(L) 135 - 145 mmol/L [facility] Potassium 4.4 3.5 - 5.0 mmol/L [facility] Comment: Please note: ??Patients with WBC >100,000 may have falsely elevated Potassium levels. ??For accurate Potassium quantification in these patients send serum separator tube (gold top) for subsequent determinations. ??Contact the Clinical Chemistry Laboratory if there are any questions. Chloride 92(L) 98 - 107 mmol/L [facility] Carbon Dioxide 27 22 - 31 mmol/L [facility] Anion Gap 14 5 - 15 mmol/L [facility] Calcium 8.5 8.5 - 10.5 mg/dL [facility] Est Glomerular Filtration Rate 9(L) >=60 mL/min/1. 73 m?? [facility] Comment: The eGFR was calculated using the CKD-EPI equation. As with all creatinine based estimates of kidney function, eGFR values calculated with the CKD-EPI equation are not accurate in patients with acute kidney failure, extremes of body mass or the acutely ill. http://[employer]/[facility] eGFR 11(L) >=60 mL/min/1. 73 m?? [facility] Comment: The eGFR was calculated using the CKD-EPI equation. As with all creatinine based estimates of kidney function, eGFR values calculated with the CKD-EPI equation are not accurate in patients with acute kidney failure, extremes of body mass or the acutely ill. http://[employer]/[facility] Blood specimen (specimen) 07/31/2019 4:20 AM EDT 07/31/2019 4:35 AM EDT Narrative Resulting Agency Comment Spec In Lab Aaron Dover MD CHEMISTRY ORDERABLES [facility] [place] [address] * POCT Glucose (07/31/2019 4:08 AM EDT) Glucose, POC 129 65 - 199 mg/dL [facility] Comment: Supplemental ranges: <140 mg/dL before meals <180 mg/dL all other times of the day Blood specimen (specimen) 07/31/2019 4:08 AM EDT 07/31/2019 4:08 AM EDT Eliot Cohen MD POINT OF CARE TEST O ANTONETTE [facility] [place] [address] * POCT Glucose (07/30/2019 10:52 PM EDT) Glucose, POC 140 65 - 199 mg/dL [facility] Comment: Supplemental ranges: <140 mg/dL before meals <180 mg/dL all other times of the day Blood specimen (specimen) 07/30/2019 10:52 PM EDT 07/30/2019 10:52 PM EDT Eliot Cohen MD POINT OF CARE TEST O ANTONETTE Performing Organization Address [facility]/ZIP Co de Phone Number [facility] [place] [address] * (ABNORMAL) POCT Glucose (07/30/2019 7:29 PM EDT) Glucose, POC 217(H) 65 - 199 mg/dL [facility] Comment: Supplemental ranges: <140 mg/dL before meals <180 mg/dL all other times of the day Blood specimen (specimen) 07/30/2019 7:29 PM EDT 07/30/2019 7:29 PM EDT Aaron Dover MD POINT OF CARE TEST O RDERAROSIE [facility] [place] [address] * (ABNORMAL) Troponin (07/30/2019 6:10 PM EDT) Troponin-T 0.08(H) 0.00 - 0.00 ng/mL [facility] Comment: The 99th percentile for Troponin T is less than 0.01 ng/mL, any detectable cTnT concentration using this assay should be considered elevated. According to the third universal definition of myocardial infarction the following criteria with a clinical presentation consistent with acute myocardial ischemia meets the diagnosis for a myocardial infarction (VT). Detection of a rise and/or fall of cTnT, with at least one value greater than the 99th percentile (> or = 0.01) and with at least one of the following ?? Symptoms of ischemia ?? New or presumed new significant PT-kgqkgmk-F wave (ST-T) changes or new left bundle [...] additional sample may be indicated. Reference: Third [place] Definition of Myocardial Infarction. Journal of the [place] [employer] 2012;60:1581-98 Blood specimen (specimen) 07/30/2019 6:10 PM EDT 07/30/2019 6:19 PM EDT Narrative Resulting Agency Comment Spec In Lab Penny Conklin MD CHEMISTRY ORDERABLES Performing Organization Address [facility]/ZIP Co de Phone Number [facility] [place] [address] * POCT Glucose (07/30/2019 4:13 PM EDT) Glucose, POC 194 65 - 199 mg/dL [facility] Comment: Supplemental ranges: <140 mg/dL before meals <180 mg/dL all other times of the day Blood specimen (specimen) 07/30/2019 4:13 PM EDT 07/30/2019 4:13 PM EDT Aaron Dover MD POINT OF CARE TEST O RDERABLES Performing Organization Address [facility]/ZIP Co de Phone Number [facility] [place] [address] * (ABNORMAL) POCT Glucose (07/30/2019 1:18 PM EDT) Glucose, POC 225(H) 65 - 199 mg/dL [facility] Comment: Supplemental ranges: <140 mg/dL before meals <180 mg/dL all other times of the day Blood specimen (specimen) 07/30/2019 1:18 PM EDT 07/30/2019 1:18 PM EDT Aaron Dover MD POINT OF CARE TEST O RDERABLES [facility] [place] [address] * (ABNORMAL) Troponin (07/30/2019 12:30 PM EDT) [facility] Troponin-T 0.07(H) 0.00 - 0.00 ng/mL [facility] Comment: The 99th percentile for Troponin T is less than 0.01 ng/mL, any detectable cTnT concentration using this assay should be considered elevated. According to the third universal definition of myocardial infarction the following criteria with a clinical presentation consistent with acute myocardial ischemia meets the diagnosis for a myocardial infarction (VT). Detection of a rise and/or fall of cTnT, with at least one value greater than the 99th percentile (> or = 0.01) and with at least one of the following ?? Symptoms of ischemia ?? New or presumed new significant AG-jliyavx-B wave (ST-T) changes or new left bundle [...] additional sample may be indicated. Reference: Third [place] Definition of Myocardial Infarction. Journal of the [place] [employer] 2012;60:1581-98 Blood specimen (specimen) 07/30/2019 12:30 PM EDT 07/30/2019 12:42 PM EDT Narrative Resulting Agency Comment Spec In Lab Penny Conklin MD CHEMISTRY ORDERABLES [facility] [place] [address] * XR Clavicle Right (Generic) (07/30/2019 12:23 [...] humeral fracture is not included in the ayjmd-cu-annh. Known right second rib fracture is not visible. There is curvilinear density along the right apical and lateral chest wall that is similar to prior, most likely extrapleural blood. No distended loops of bowel. EKG leads overlie the patient and obscure the uzkrk-bh-bemj. Procedure Note Rosio Burt MD - 07/30/2019 [...] humeral fracture is not included in the vqhin-ej-qlyn. Knownright second rib fracture is not visible. There is curvilinear density along theright apical and lateral chest wall that is similar to prior, most likelyextrapleural blood. No distended loops of bowel. EKG leads overlie the patient and obscurethe rzsxv-gb-tkjx. IMPRESSION 1. Small left pleural fluid collection [...] Glucose, POC 255(H) 65 - 199 mg/dL [facility] Comment: Supplemental ranges: <140 mg/dL before meals <180 mg/dL all other times of the day Blood specimen (specimen) 07/30/2019 12:18 PM EDT 07/30/2019 12:18 PM EDT Aaron Dover MD POINT OF CARE TEST O RDERAROSIE Performing Organization Address [facility] Co de Phone Number [facility] [place] [address] * (ABNORMAL) POCT Glucose (07/30/2019 10:02 AM EDT) Glucose, POC 266(H) 65 - 199 mg/dL [facility] Comment: Supplemental ranges: <140 mg/dL before meals <180 mg/dL all other times of the day Blood specimen (specimen) 07/30/2019 10:02 AM EDT 07/30/2019 10:02 AM EDT Aaron Dover MD POINT OF CARE TEST O ANTONETTE Performing Organization Address City/[facility]/ZIP Co de Phone Number [facility] [place] [address] * EKG 12 Lead (07/30/2019 8:59 AM EDT) Ventricular rate 108 BPM MUSE SYSTEM Atrial Rate 108 BPM MUSE SYSTEM P-R Interval 182 ms MUSE SYSTEM QRS Duration 94 ms MUSE SYSTEM Q-T Interval 344 ms MUSE SYSTEM QTC Calculated (Bezet) 460 ms MUSE SYSTEM Calculated P Burt 65 degrees MUSE SYSTEM Calculated R Burt 46 degrees MUSE SYSTEM Calculated T Burt 60 degrees MUSE SYSTEM INTERPRETATION Sinus tachycardia with frequent Premature ventricular complexes Possible Inferior infarct (cited on or before 30-JUL-2019) Abnormal ECG When compared with ECG of 30-JUL-2019 00:51, No significant change was found Confirmed by MD JOANNA, PENNY ([id number]) on 07/30/2019 9:45:15 AM MUSE SYSTEM 07/30/2019 8:59 AM EDT 07/30/2019 9:45 AM EDT Aaron Dover MD ECG ORDERABLES Performing Organization Address City/[facility] Co de Phone Number MUSE SYSTEM * (ABNORMAL) POCT Glucose (07/30/2019 8:15 AM EDT) Glucose, POC 268(H) 65 - 199 mg/dL [facility] Comment: Supplemental ranges: <140 mg/dL before meals <180 mg/dL all other times of the day Blood specimen (specimen) 07/30/2019 8:15 AM EDT 07/30/2019 8:15 AM EDT Aaron Dover MD POINT OF CARE TEST O RDERABLES [facility] [place] [address] * CT Angiogram Carotids (07/30/2019 8:04 AM [...] number below. Kimani Kiser MD [facility] [place]LES * (ABNORMAL) Basic Metabolic Panel (non-fasting) (07/30/2019 6:10 AM EDT) Glucose 233(H) 65 - 199 mg/dL [facility] Comment:Diabetes: >=200 mg/d L plus symptoms Blood Urea Nitrogen 37(H) 10 - 20 mg/dL [facility] Creatinine 4.89(H) 0.80 - 1.50 mg/dL [facility] Sodium 136 135 - 145 mmol/L [facility] Potassium 4.5 3.5 - 5.0 mmol/L [facility] Comment: Please note: ??Patients with WBC >100,000 may have falsely elevated Potassium levels. ??For accurate Potassium quantification in these patients send serum separator tube (gold top) for subsequent determinations. ??Contact the Clinical Chemistry Laboratory if there are any questions. Chloride 94(L) 98 - 107 mmol/L [facility] Carbon Dioxide 29 22 - 31 mmol/L [facility] Anion Gap 13 5 - 15 mmol/L [facility] Calcium 8.6 8.5 - 10.5 mg/dL [facility] Est Glomerular Filtration Rate 12(L) >=60 mL/min/1. 73 m?? [facility] Comment: The eGFR was calculated using the CKD-EPI equation. As with all creatinine based estimates of kidney function, eGFR values calculated with the CKD-EPI equation are not accurate in patients with acute kidney failure, extremes of body mass or the acutely ill. http://[employer]/[facility]nk[facility] eGFR 14(L) >=60 mL/min/1. 73 m?? [facility] Comment: The eGFR was calculated using the CKD-EPI equation. As with all creatinine based estimates of kidney function, eGFR values calculated with the CKD-EPI equation are not accurate in patients with acute kidney failure, extremes of body mass or the acutely ill. http://[employer]/[facility]f Blood specimen (specimen) 07/30/2019 6:10 AM EDT 07/30/2019 6:17 AM EDT Narrative Resulting Agency Comment Spec In Lab Penny Conklin MD CHEMISTRY ORDERABLES [facility] [place] [address] * Phosphorus (07/30/2019 6:10 AM EDT) Phosphorus 4.5 2.5 - 4.5 mg/dL [facility] Blood specimen (specimen) 07/30/2019 6:10 AM EDT 07/30/2019 6:17 AM EDT Narrative Resulting Agency Comment Spec In Lab Aaron Dover MD CHEMISTRY ORDERABLES Performing Organization Address City/[facility]/ZIP Co de Phone Number [facility] [place] [address] * Magnesium (07/30/2019 6:10 AM EDT) Pathologist [facility] Magnesium 0.81 0.69 - 1.07 mmol/L [facility] Blood specimen (specimen) 07/30/2019 6:10 AM EDT 07/30/2019 6:17 AM EDT Narrative Resulting Agency Comment Spec In Lab Aaron Dover MD CHEMISTRY ORDERABLES Performing Organization Address [facility]/ZIP Co de Phone Number [facility] [place] [address] * (ABNORMAL) Troponin (07/30/2019 6:10 AM EDT) Pathologist [facility] Troponin-T 0.06(H) 0.00 - 0.00 ng/mL [facility] Comment: The 99th percentile for Troponin T is less than 0.01 ng/mL, any detectable cTnT concentration using this assay should be considered elevated. According to the third universal definition of myocardial infarction the following criteria with a clinical presentation consistent with acute myocardial ischemia meets the diagnosis for a myocardial infarction (VT). Detection of a rise and/or fall of cTnT, with at least one value greater than the 99th percentile (> or = 0.01) and with at least one of the following ?? Symptoms of ischemia ?? New or presumed new significant OD-pnrlprc-N wave (ST-T) changes or new left bundle [...] additional sample may be indicated. Reference: Third [place] Definition of Myocardial Infarction. Journal of the [place] [employer] 2012;60:1581-98 Blood specimen (specimen) 07/30/2019 6:10 AM EDT 07/30/2019 6:17 AM EDT Narrative Resulting Agency Comment Spec In Lab Penny Conklin MD CHEMISTRY ORDERABLES Performing Organization Address [facility]/ZIP Co de Phone Number [facility] [place] [address] * POCT Glucose (07/30/2019 1:38 AM EDT) Glucose, POC 175 65 - 199 mg/dL [facility] Comment: Supplemental ranges: <140 mg/dL before meals <180 mg/dL all other times of the day Blood specimen (specimen) 07/30/2019 1:38 AM EDT 07/30/2019 1:38 AM EDT Aaron Dover MD POINT OF CARE TEST O RDERABLES Performing Organization Address [facility] Co de Phone Number [facility] [place] [address] * XR Elbow 3 Views Right (GENERIC) [...] (Bezet) 472 ms MUSE SYSTEM Calculated P Burt 64 degrees MUSE SYSTEM Calculated R Burt 57 degrees MUSE SYSTEM Calculated T Burt 49 degrees MUSE SYSTEM INTERPRETATION Sinus tachycardia [...] necessary): chest abdomen pelvis; Sending Institution [facility]; Date of exam 20190729; I believe [...] comments as necessary): chest abdomen pelvis; [facility]; Date of exam 20190729; I believe [...] exclude potential malignancy. Alternatively, depending on the [id number], this can potentially be reevaluated on clinically-decided [...] number below. ? Electronically signed by: ALEXANDER Weathers [facility] ([phone]), at 07/30/2019 2:19 AM Narrative 07/30/2019 2:19 [...] exclude potential malignancy. Alternatively, depending on the [id number], this can potentially be reevaluated on clinically-decided [...] MD IMG OUTSIDE INTERPRE TATION ORDERABLES * XR Chest One View [...] Hemoglobin A1c 8.6(H) 4.3 - 5.6 % [facility] Comment: Reference Range: 4.3 - [...] Mellitus, Diabetes Care 2013; 36: Suppl. 1, N77-04 Estimated Average Glucose 201 mg/dL [facility] Comment: eAG equivalents for HbA1c [...] into estimated average glucose values. ??Diabetes Care 2008:31(8):6241-7143. Blood specimen (specimen) Venous Draw / Unknown 07/29/2019 11:59 PM EDT 07/30/2019 4:51 PM EDT Narrative Resulting Agency Comment Spec In Lab Narcisa Tovar APRN CHEMISTRY ORDERABLE S [facility] [place] [place] [address] * (ABNORMAL) Troponin (07/29/2019 11:59 PM EDT) Troponin-T 0.07(H) 0.00 - 0.00 ng/mL [facility] Comment: Called by: JOHANNA, Read back by: Paula Mallory, Date/Time:07/30/19 01:23. The 99th percentile for Troponin T is less than 0.01 ng/mL, any detectable cTnT concentration using this assay should be considered elevated. According to the third universal definition of myocardial infarction the following criteria with a clinical presentation consistent with acute myocardial ischemia meets the diagnosis for a myocardial infarction (VT). Detection of a rise and/or fall of cTnT, with at least one value greater than the 99th percentile (> or = 0.01) and with at least one of the following ?? Symptoms of ischemia ?? New or presumed new significant PG-[id number]-G wave (ST-T) changes or new left bundle [...] additional sample may be indicated. Reference: Third [place] Definition of Myocardial Infarction. Journal of the [place] [employer] 2012;60:1581-98 Blood specimen (specimen) Venous Draw / Unknown 07/29/2019 11:59 PM EDT 07/30/2019 12:04 AM EDT Narrative Resulting Agency Comment Spec In Lab Kimani Kiser MD CHEMISTRY ORDERABLES Performing Organization Address City/[facility]/ZIP Co de Phone Number [facility] [place] [address] * ABORH Recheck Status (07/29/2019 11:59 PM EDT) ABORH Type Recheck Completed [facility] Blood specimen (specimen) 07/29/2019 11:59 PM EDT 07/30/2019 12:03 AM EDT Narrative Resulting Agency Comment Spec In Lab Aaron Dover MD BLOOD BANK LAB ORDER ROBBIE Performing Organization Address City/[facility]/ZIP Co de Phone Number [facility] [place] [address] * Antibody screen (07/29/2019 11:59 PM EDT) Ab Screen Interp Negative [facility] Expires at [id number] on: 08/01/2019 [facility] Blood specimen (specimen) 07/29/2019 11:59 PM EDT 07/30/2019 12:03 AM EDT Narrative Resulting Agency Comment Spec In Lab Aaron Dover MD BLOOD BANK LAB ORDER ROBBIE [facility] [place] [address] * ABO/Rh Typing (07/29/2019 11:59 PM EDT) Pathologist [facility] ABORH Type A Pos [facility] Blood specimen (specimen) 07/29/2019 11:59 PM EDT 07/30/2019 12:03 AM EDT Narrative Resulting Agency Comment Spec In Lab Aaron Dover MD BLOOD BANK LAB ORDER ROBBIE Performing Organization Address City/[facility]/ZIP Co de Phone Number [facility] [place] [address] * Gold Tube HOLD (07/29/2019 11:59 PM EDT) [facility] Gold Hold Sample in lab. [facility] Blood specimen (specimen) Venous Draw / Unknown 07/29/2019 11:59 PM EDT 07/30/2019 12:05 AM EDT Kimani Kiser MD CHEMISTRY ORDERABLES [facility] [place] [address] * (ABNORMAL) Differential, Automated (07/29/2019 11:59 PM EDT) [facility] Signature Neutrophil % 83.4 % [facility] Neutrophil Absolute 9.43(H) 1.70 - 6.10 x10(3)/ L [facility] Lymph % 8.0 % [facility] Lymphocytes Abs 0.9 0.9 - 3.2 x10(3)/[facility] Monocyte % 6.9 % [facility] Monocyte Abs 0.8 0.3 - 0.9 x10(3)/[facility] Eos % 0.7 % [facility] Eosinophils Abs 0.1 0.0 - 0.4 x10(3)/[facility] Basophil % 0.3 % [facility] Baso Absolute 0.0 0.0 - 0.1 x10(3)/[facility] Immature Gran % 0.70 % [facility] Comment: Immature granulocytes(IG's)percentage and absolute count will include metamyelocytes, myelocytes, and promyelocytes. Blood smears from CBCs yielding IG's will be scanned manually for concordance. If this scan disagrees with the automated IG or if promyelocytes are noted, a manual differential will be performed. Immature Gran Absolute 0.08(H) 0.00 - 0.04 x10(3)/[facility] Blood specimen (specimen) 07/29/2019 11:59 PM EDT 07/30/2019 12:04 AM EDT Narrative Resulting Agency Comment Spec In Lab Kimani Kiser MD HEMATOLOGY ORDERABLE S [facility] [place] [address] * (ABNORMAL) Hemogram (07/29/2019 11:59 PM EDT) White Blood Cell 11.3(H) 4.0 - 9.5 x10(3)/ L [facility] Red Blood Cell 3.37(L) 4.58 - 5.54 x10(6)/[facility] Hemoglobin 10.9(L) 13.7 - 16.5 gm/dL [facility] Hematocrit 32.1(L) 40.5 - 48.5 % [facility] Mean Cell Volume 95.3(H) 82.9 - 93.1 fL [facility] Mean Cell Hemoglobin 32.3(H) 27.5 - 32.1 pg [facility] Mean Cell Hemoglobin Concentration 34.0 32.0 - 35.7 gm/dL [facility] Platelet 135(L) 145 - 357 x10(3)/mc L [facility] RDW Standard Deviation 47.7(H) 36.0 - 45.0 fL [facility] RDW coefficient of variation 13.9(H) 11.4 - 13.8 % [facility] Mean Platelet Volume 9.7 7.6 - 12.9 [facility] NRBC% auto 0.0 % [facility] NRBC Absolute 0.000 0.000 - 0.000 x10(3)/mc L [facility] Blood specimen (specimen) 07/29/2019 11:59 PM EDT 07/30/2019 12:04 AM EDT Narrative Resulting Agency Comment Spec In Lab Kimani Kiser MD HEMATOLOGY ORDERABLE S [facility] [place] [address] * L-Lactate2 Whole Blood (07/29/2019 11:59 PM EDT) Lactate WB 1.2 0.5 - 2.2 mmol/L [facility] Blood specimen (specimen) 07/29/2019 11:59 PM EDT 07/29/2019 11:[address] Evgeny Paez MD CHEMISTRY ORDERABLES [facility] [place] [address] * Ethanol Level (07/29/2019 11:59 PM EDT) Ethanol <100 <=99 mg/L [facility] Comment: Greater than 800 mg/L (0.08%) should be considered intoxicated. 3400 to 4500 mg/L (0.34 - 0.45%) is considered severe intoxication. Greater than 5500 mg/L (0.55%) is usually fatal. Blood specimen (specimen) 07/29/2019 11:59 PM EDT 07/30/2019 12:04 AM EDT Narrative Resulting Agency Comment Spec In Lab Kimani Kiser MD CHEMISTRY ORDERABLES Performing Organization Address [facility] Co de Phone Number [facility] [place] [address] * APTT (07/29/2019 11:59 PM EDT) Partial Thromboplastin Time 34 25 - 37 sec [facility] Comment: The PTT is NOT appropriate for heparin monitoring. Use the Anti-Xa level for heparin monitoring (HEP UFH) or LMWH monitoring (HEP LMW). A PTT less than 37 seconds generally indicates adequate hemostasis. Blood specimen (specimen) 07/29/2019 11:59 PM EDT 07/30/2019 12:04 AM EDT Narrative Resulting Agency Comment Spec In Lab Kimani Kiser MD HEMATOLOGY ORDERABLE S Performing Organization Address [facility] Co de Phone Number [facility] [place] [address] * Prothrombin Time (07/29/2019 11:59 PM EDT) Prothrombin Time 12.1 9.4 - 12.5 sec [facility] International Normalization Ratio 1.0 [facility] Comment: An INR <2.0 indicates [...] Lab Kimani Kiser MD HEMATOLOGY ORDERABLE S [facility] [place] [address] * (ABNORMAL) Basic Metabolic Panel (non-fasting) (07/29/2019 11:59 PM EDT) Glucose 159 65 - 199 mg/dL [facility] Comment:Diabetes: >=200 mg/d L plus symptoms Blood Urea Nitrogen 34(H) 10 - 20 mg/dL [facility] Creatinine 4.59(H) 0.80 - 1.50 mg/dL [facility] Sodium 136 135 - 145 mmol/L [facility] Potassium 3.9 3.5 - 5.0 mmol/L [facility] Comment: Please note: ??Patients with WBC >100,000 may have falsely elevated Potassium levels. ??For accurate Potassium quantification in these patients send serum separator tube (gold top) for subsequent determinations. ??Contact the Clinical Chemistry Laboratory if there are any questions. Chloride 93(L) 98 - 107 mmol/L [facility] Carbon Dioxide 31 22 - 31 mmol/L [facility] Anion Gap 12 5 - 15 mmol/L [facility] Calcium 8.8 8.5 - 10.5 mg/dL [facility] Est Glomerular Filtration Rate 13(L) >=60 mL/min/1. 73 m?? [facility] Comment: The eGFR was calculated using the CKD-EPI equation. As with all creatinine based estimates of kidney function, eGFR values calculated with the CKD-EPI equation are not accurate in patients with acute kidney failure, extremes of body mass or the acutely ill. http://[employer]/[facility] – TISHOMINGOnkf eGFR 15(L) >=60 mL/min/1. 73 m?? [facility] Comment: The eGFR was calculated using the CKD-EPI equation. As with all creatinine based estimates of kidney function, eGFR values calculated with the CKD-EPI equation are not accurate in patients with acute kidney failure, extremes of body mass or the acutely ill. http://[employer]/[facility]nkf Blood specimen (specimen) 07/29/2019 11:59 PM EDT 07/30/2019 12:04 AM EDT Narrative Resulting Agency Comment Spec In Lab Kimani Kiser MD CHEMISTRY ORDERABLES Performing Organization Address City/[facility] Co de Phone Number [facility] [place] [address] * Film Library- Storage Only DX Upper Extremity (07/29/2019 10:14 PM EDT) Narrative [facility] - 07/29/2019 10:14 PM EDT This exam is auto-finalizing. It's purpose is for storage only. Aaron Dover MD [facility] [place]M LIBRARY ORD ERABLES Performing Organization Address [facility] de Phone Number [place], [place] * Film Library- Storage Only DX Hip (07/29/2019 10:12 PM EDT) Narrative [facility] - 07/29/2019 10:12 PM EDT This exam is auto-finalizing. It's purpose is for storage only. Aaron Dover MD [facility] FILM LIBRARY ORD ERABLES Performing Organization Address City/[facility] Co de Phone Number [place], [place] * Film Library- Storage Only DX Shoulder (07/29/2019 10:11 PM EDT) Narrative [facility] - 07/29/2019 10:11 PM EDT This exam is auto-finalizing. It's purpose is for storage only. Aaron Dover MD [facility] FILM LIBRARY ORD ERABLES Performing Organization Address [facility] Co de Phone Number [place] documented in this encounter Visit Diagnoses [...] PROTOCOL, Starting on Tue07/29/19 at 2354, Until 07/30/19 at 0647, Pain, Every 5-15 minutes PRN, [...] Kendra Beckett RN)1355 (Given - Provider: Giovana Ray, PERNELL)1904 (Given - Provider: Giovana Ray RN)2336 (Given - Provider: Kendra Beckett RN) 0515 (Given - Provider: Kendra Beckett RN)1156 (Given - Provider: Aicha Santa, PERNELL)1739 (Given - Provider: Aicha Santa RN)2340 (Given - Provider: Bibiana Venegas RN) 0600 [...] Aicha Santa RN)2144 (Given - Provider: Bibiana Venegas RN) 0628 (Given - Provider: Bibiana Venegas RN)1300 [...] Aicha Santa, PERNELL)1553 (Given - Provider: Aicha Santa RN)2005 (Given - Provider: Bibiana Venegas RN - Comment: blood sugar 184) 0000 (Not Given - Provider: Bibiana Venegas RN - Reason: Order parameters not met - Comment: blood sugar 135)0400 (Not Given - Provider: Bibiana Venegas RN [...] Giovana Ray RN)2010 (Given - Provider: Kendra Beckett, PERNELL) 0853 (Given - Provider: Gabrielle Portillo, PERNELL)2005 [...] RN) 1845 (Patch Removed - Provider: Aicha Santa RN) losartan (Cozaar) tablet 50 mg 50 mg, Oral, DAILY, First dose on Tue07/30/19 at 1345, Until Discontinued, Hold SBP <100, Routine 1357 (Given - Provider: Giovana Ray RN) 0852 (Given - Provider: Gabrielle Portillo, PERNELL) 0816 (Given - Provider: Aicha Santa, PERNELL) [...] Beckett RN)655 (See Alternative - Provider: Kendra Bcekett RN)1355 (See Alternative - Provider: Giovana Ray [...] RN) 0945 (See Alternative - Provider: Aicha Santa, PERNELL) lidocaine (XYLOCAINE) 10 mg/mL (1 %) injection [...] Routine documented in this encounter Care Teams Telephone Clerks Supervisor Relationship Specialty Start Date End Date Jarad Keller DNP PCP - General Family Medicine 06/05/18 02/09/21 documented as of this encounter
--- OUTSIDE RECORDS SUMMARY | 2024-02-24 17:00 | XMS_ITS | Encounter Summary ---
Author Organization [facility] [place] [address] Care Team Providers Care Dipper Operator Name Role Phone Jarad Keller DNP Primary Care Provider [phone] Encounter Details Date Type Department Care Team (Late st Contact Info) Description 07/29/2019 10:15 PM EDT Ancillary Procedure Radiology Library at [facility] [place] [address] Social History Tobacco Use Types Packs/Day Years [...] Dover MD IMG FILM LIBRARY ORD ERABLES [place], [place] documented in this encounter Visit Diagnoses Not on filedocumented in this encounter Care Teams Dipper Operator Relationship Specialty Start Date End Date Jarad Keller DNP PCP - General Family Medicine 06/05/18 02/09/21 documented as of this encounter
--- OUTSIDE RECORDS SUMMARY | 2024-02-24 17:00 | XMS_ITS | Encounter Summary ---
[place] [address] Care Team Providers Care Ice Cream Server Name Role Phone Jarad Keller DANIKA Primary Care Provider [phone] Reason for Visit * Auth/Cert Specialty Diagnoses / Procedures Referred By Puneet hallman Referred To Contact Diagnoses Fall Fall, initial encounter Referral ID Status Reason Start Date Expiration Date Visits Re quested Visits Authorized [id number] 1 1 Encounter Details Date Type Department Care Team (Latest Contact Info) Description 07/31/2019 5:15 AM EDT - 07/31/2019 11:59 PM EDT Hospital Encounter Non-In[place] [address] Discharge Disposition: Home Social History Tobacco Use [...] mLs documented in this encounter Care Teams Ice Cream Server Relationship Specialty Start Date End Date Jarad Keller DNP PCP - General Family Medicine 06/05/18 02/09/21 documented as of this encounter
--- OUTSIDE RECORDS SUMMARY | 2024-02-24 17:01 | XMS_ITS | Encounter Summary ---
[place] [address] Care Team Providers Care Desktop Manager Name Role Phone Jarad Keller DANIKA Primary Care Provider [phone] Reason for Visit * Reason Onset Date Comments Appointment 07/18/2019 Encounter Details Date Type Department Care Team (Late st Contact Info) Description 07/18/2019 [place] [address] Harmeet Arvizu MD [facility] [place] [address] Appointment Social History Tobacco Use Types Packs/Day [...] on filedocumented in this encounter Care Teams Desktop Manager Relationship Specialty Start Date End Date Jarad Keller DNP PCP - General Family Medicine 06/05/18 02/09/21 documented as of this encounter
--- OUTSIDE RECORDS SUMMARY | 2024-02-24 17:01 | XMS_ITS | Encounter Summary ---
Author Organization [facility] [place] [address] Care Team Providers Care Director Of Accreditation Name Role Phone Ej Duran MD Primary Care Provider [phone] Reason for Visit * Reason Onset Date Comments Questions 03/01/2013 Encounter Details Date Type Department Care Team (Late st Contact Info) Description 03/01/2013 Telephone [place] [address] Matteo Diane MD [facility] [place] [address] Questions Social History Tobacco Use Types Packs/Day [...] Schmidt COA - 03/02/2013 2:46 PM EDT eCli, can you please see what might be covered in this class, acukar, nevenac, etc, thanks * Telephone Encounter - Celi Lynne COT - 03/01/2013 4:35 PM EDT Patient called checking on prior [facility] [place] [facility]. Advised patient, will forward to Dr. Diane's photography assistant for follow up * Telephone Encounter - Maddy West - 03/01/2013 1:55 PM EDT Maurice Rudolph is a 52 y.o. male Patient called to check to see if we have received the prior authorization paperwork for the eyedrop (mabry top) he needs refilled at [facility] in [place], [place] [phone]; please call patient at [phone] documented in this encounter Plan of Treatment Not on file documented as of this encounter Visit Diagnoses Diagnosis Acute angle-closure glaucoma of right eye. History of angle-closure after silicone oil placement when patient was phakic. Acute angle-closure glaucoma Eye pain Pain in or around eye documented in this encounter Care Teams Director Of Accreditation Relationship Specialty Start Date End Date Ej Duran MD [address] [place] [address] PCP - General 10/28/11 06/04/18 documented as of this encounter
--- OUTSIDE RECORDS SUMMARY | 2024-02-24 17:01 | XMS_ITS | Encounter Summary ---
[place] [address] Care Team Providers Care Wire Sawyer Name Role Phone Ej Duran MD Primary Care Provider [phone] Encounter Details Date Type Department Care Team (Late st Contact Info) Description 05/15/2018 Telephone [place] [address] Tamar Smith RN Social History Tobacco Use [...] INSERTION performed by Erasmo Bajwa MD at [facility] ??? PRO REMV CATARACT EXTRACAP,INSERT LENS,COMP 07/18/2012 ? ? PRO REPAIR COMPLEX RETINA DETACH VITRECTOMY & MEMB PEEL 04/03/2012, 04/03/12 REPAIR COMPLEX RETINAL DETACHMENT, W/ VITRECTOMY, MEMBRANE PEELING performed by Matteo Diane MD at [facility] OR ? ? PRO REPAIR COMPLEX RETINA DETACH VITRECTOMY & MEMB PEEL 07/31/2012 REPAIR COMPLEX RETINAL DETACHMENT, W/ VITRECTOMY, MEMBRANE PEELING performed by Matteo Diane MD at [facility] ? ? PRO REPAIR COMPLEX RETINA DETACH VITRECTOMY & MEMB PEEL 01/08/2013 REPAIR COMPLEX RETINAL DETACHMENT, W/ VITRECTOMY, MEMBRANE PEELING performed by Matteo Diane MD at [facility] ??? PRO TX EXTENSIVE [...] filedocumented in this encounter Care Teams Wire Sawyer Relationship Specialty Start Date End Date Ej Duran MD [address] [place] [address] PCP - General 10/28/11 06/04/18 documented as of this encounter
--- OUTSIDE RECORDS SUMMARY | 2024-02-24 17:01 | XMS_ITS | Encounter Summary ---
[place] [address] Care Team Providers Care Supervisor Game Farm Name Role Phone Jarad Keller DNP Primary Care Provider [phone] Encounter Details Date Type Department Care Team (Late st Contact Info) Description 06/21/2018 Orders Only [place] [address] Tamar Smith RN Pre-transplant evaluation for kidney transplant; ESRD (end stage renal disease); ESRD on hemodialysis; Coronary artery disease, angina presence unspecified, unspecified vessel or lesion type, unspecified whether [place] or transplanted heart Social History Tobacco Use [...] unspecified vessel or lesion type, unspecified whether [place] or transplanted heart documented in this encounter Care Teams Supervisor Game Farm Relationship Specialty Start Date End Date Jarad Keller DNP PCP - General Family Medicine 06/05/18 02/09/21 documented as of this encounter
--- OUTSIDE RECORDS SUMMARY | 2024-02-24 17:01 | XMS_ITS | Encounter Summary ---
Author Organization [facility] [place] [address] Care Team Providers Care Lock Technician Name Role Phone Ej Duran MD Primary Care Provider [phone] Reason for Visit * Reason Comments Hyperopia 6 week follow up Diabetes BS was 180 as of yes terday AM Encounter Details Date Type Department Care Team (Late st Contact Info) Description 05/08/2013 2:15 PM EST Office Visit [place] [address] Matteo Diane MD [facility] [place] [address] Proliferative diabetic retinopathy, both eyes (Primary Dx) [...] uncontrolled documented in this encounter Care Teams Lock Technician Relationship Specialty Start Date End Date Ej Duran MD [address] [place] [address] PCP - General 10/28/11 06/04/18 documented as of this encounter
--- OUTSIDE RECORDS SUMMARY | 2024-02-24 17:01 | XMS_ITS | Encounter Summary ---
[place] [address] Care Team Providers Care Rib Stiffener And Heel Dipper Name Role Phone Jarad Keller DNP Primary Care Provider [phone] Encounter Details Date Type Department Care Team (Late st Contact Info) Description 06/08/2018 12:00 PM EST Office Visit [place] [address] Organ transplant candidate Social History Tobacco Use [...] Hernández - 06/08/2018 12:00 PM EST Transplant [facility] Note: Met with patient during the Kidney Class appointment to review medical and pharmacy benefits for transplant services. He is covered by Medicare A, B, and D ([facility]). He does not have a secondary [...] None ( Medicaid applied for) Pharmacy Carrier: [employer] (level 1 LIS extra help copays $3.60 [...] status documented in this encounter Care Teams Rib Stiffener And Heel Dipper Relationship Specialty Start Date End Date Jarad Keller DNP PCP - General Family Medicine 06/05/18 02/09/21 documented as of this encounter
--- OUTSIDE RECORDS SUMMARY | 2024-02-24 17:01 | XMS_ITS | Encounter Summary ---
Author Organization Formerly [facility] [place] [address] Care Team Providers Care Hay Stacker Operator Name Role Phone Jarad Keller DNP Primary Care Provider [phone] Encounter Details Date Type Department Care Team (Late st Contact Info) Description 06/08/2018 1:30 PM EST Office Visit [place] [address] Merlene Ferro, [facility] [place] [address] Pre-transplant evaluation for kidney transplant Social History [...] EST TRANSPLANT NUTRITION Initial Transplant Note This engineering technical writer met with Maurice GurrolaKaty Ronni a [...] initiated hemodialysis about 2 years ago in [place] and transferred about 2 months ago to [facility] unit Food Record: B -> [...] means for contact provided. Plan communicated to [employer] Social [employer] Tutor for Documentation in patient's transplant medical record. Remain available for questions/concerns. documented in this encounter Plan of Treatment Not on file documented as of this encounter Visit Diagnoses Diagnosis Pre-transplant evaluation for kidney transplant Other specified pre-operative examination documented in this encounter Care Teams Hay Stacker Operator Relationship Specialty Start Date End Date Jarad Keller DNP PCP - General Family Medicine 06/05/18 02/09/21 documented as of this encounter
--- OUTSIDE RECORDS SUMMARY | 2024-02-24 17:01 | XMS_ITS | Encounter Summary ---
Author Organization [facility] [place] [address] Care Team Providers Care Lunchroom Attendant Name Role Phone Jarad Keller DNP Primary Care Provider [phone] Reason for Visit * Reason Comments Cellulitis * Auth/Cert Specialty Diagnoses / Procedures Referred By Puneet t Referred To Contact Diagnoses Cellulitis Cellulitis of leg, left Referral ID Status Reason Start Date Expiration Date Visits Re quested Visits Authorized [id number] 1 1 Encounter Details Date Type Department Care Team (Latest Contact Info) Description 10/19/2018 2:44 PM EDT - 10/22/2018 2:26 PM EDT Hospital Encounter [address] [place] [address] [place] [address] [place] [address] [place] [address] Cellulitis of leg, left Discharge Disposition: Home [...] Sindi Rudolph Patient Age: 58 y.o. Language: Norwegian Race: White Ethnicity: Not nor Admit date: 10/19/2018 Discharge date and time: 10/22/18 Attending Physician: Rylan Stout MD Discharge Physician: Rylan Stout MD Follow-up Recommendations for Providers: - please follow-up for ongoing improvement of left foot/leg cellulitis Inpatient Provider Contact Information: For questions regarding this document or issues relating to this hospitalization on the Medical Service, please contact your inpatient physician through the [facility] Citizenship Instructor . Issues afterhours and on weekends will [...] erythema, pain and fevers. He presented to [facility] where he was hospitalizedfor 3 days with [...] Center 10/23/2018 2:30 PM Ceasar Roy MD [facility] CLIN Your Inpatient Medical Team at [facility] Name(s) of your inpatient provider(s): Rylan Stout MD For questions regarding issues relating to your hospitalization on the Hospital Medicine Service, please contact your inpatient physician through the [facility] Citizenship Instructor [phone]. Issues after hours and on weekends will be handled by the Hospitalist staff on-call. Your Primary Care Provider Jarad Sanjay Arianna, STEREO MAP PLOTTER OPERATOR [phone] General Instructions None Future Appointments and Orders Future Appointments and Orders Future Appointments Provider Department Dept Phone 10/23/2018 2:30 PM Ceasar Roy MD Endocrinology at [place] Arrive at: [employer] Crew Boss Area [phone] Discharge References/Attachments None documented in this encounter [...] 2:30 PM Ceasar Roy MD [facility] Your Inpatient Medical Team at [facility] Name(s) of your inpatient provider(s): Rylan Stout MD For questions regarding issues relating to your hospitalization on the Hospital Medicine Service, please contact your inpatient physician through the [facility] Citizenship Instructor [phone]. Issues after hours and on weekends will be handled by the Hospitalist staff on-call. Your Primary Care Provider Jarad Grace Arianna, STEREO MAP PLOTTER OPERATOR [phone] documented in this encounter Medications at Time [...] 10/22/2018 10:57 AM EDT Per 1E request DAY SPA MANAGER supported pt w/ ride home at d/c due to financial need/friends not being able topick him up over weekend. Charge slip routed to [facility] Admin. Door to Door Transportation will flower picker pt at [facility] at 2PM 10/22 Office Of Care Management Float/Weekend Early Childhood Education Worker GAURI Nice Pager [phone] * Rylan Stout MD - 10/22/2018 10:31 [...] spent >30 minutes (Day of Discharge Code 84676) involved in the final examination of the [...] Stout MD - 10/21/2018 3:[address] [facility] Medicine Inpatient Progress Note Interval History: [...] Stout MD 10/21/2018 Hospital Medicine Team Pager [phone] * Era Anderson RN - 10/20/2018 4:14 [...] Burkett MD - 10/20/2018 11:[address] [facility] Medicine - [facility] Team Inpatient Progress Note ID: Sindi [...] 10/20/2018 Internal Medicine Hospital Medicine Team Pager [phone] Associated attestation - Ahsan Guevara MD - [...] of two midnights or is on the [facility] inpatient only procedure list (status C) due [...] eyes ID: 58 y.o. Male presents to [facility] with left leg swelling. History of Present Illness: HPI 58 y/o male with pmhx ESRD on HD TTS, CAD s/p CABG 2014, IDDM, HTN, HPL who presents with left leg swelling. The patient reports being in his usual state of health until about 10 days ago when he began experiencing left lower extremity erythema, pain and fevers. He presented to [facility] where he was hospitalizedfor 3 days with [...] INSERTION performed by Erasmo Bajwa MD at [facility]SC ??? PRO REMV CATARACT EXTRACAP,INSERT LENS,COMP 07/18/2012 ? ? PRO REPAIR COMPLEX RETINA DETACH VITRECTOMY & MEMB PEEL 04/03/2012, 04/03/12 REPAIR COMPLEX RETINAL DETACHMENT, W/ VITRECTOMY, MEMBRANE PEELING performed by Matteo Diane MD at [facility] MAIN OR ? ? PRO REPAIR COMPLEX RETINA DETACH VITRECTOMY & MEMB PEEL 07/31/2012 REPAIR COMPLEX RETINAL DETACHMENT, W/ VITRECTOMY, MEMBRANE PEELING performed by Matteo Diane MD at [facility] MAIN OR ? ? PRO REPAIR COMPLEX RETINA DETACH VITRECTOMY & MEMB PEEL 01/08/2013 REPAIR COMPLEX RETINAL DETACHMENT, W/ VITRECTOMY, MEMBRANE PEELING performed by Matteo Diane MD at [facility] MAIN OR ??? PRO TX EXTENSIVE [...] unit (V-GO 40) Device 40 Units by [facility].(Non-Drug; Combo Route) route daily. 30 Device [...] file Gets together: Not on file Attends latter-day service: Not on file Active member of [...] He states that he was recentlydischarged from [facility] after 3 days of inpatient IV abx [...] diabetes, on insulin, hypertension, and recentad[facility] with a left lower extremity cellulitis [...] knee up into his thigh rapidly. His strategy intern ws concerned so recommended he come here [...] with plants/animals. Patient was apparently hospitalized at [facility] for 3 days and was treated with Vancomycin followed by Cefazolin. Patient was discharged on 10/13 to continue Cefazolin with every HD. Patient reports LLE erythema and pain worsened despite continued antibiotic treatment which prompted him to seek medical care at [facility]. On arrival patient was hemodynamically stable and [...] INSERTION performed by Erasmo Bajwa MD at [facility] ??? PRO REMV CATARACT EXTRACAP,INSERT LENS,COMP 07/18/2012 ? ? PRO REPAIR COMPLEX RETINA DETACH VITRECTOMY & MEMB PEEL 04/03/2012, 04/03/12 REPAIR COMPLEX RETINAL DETACHMENT, W/ VITRECTOMY, MEMBRANE PEELING performed by Matteo Diane MD at [facility] MAIN OR ? ? PRO REPAIR COMPLEX RETINA DETACH VITRECTOMY & MEMB PEEL 07/31/2012 REPAIR COMPLEX RETINAL DETACHMENT, W/ VITRECTOMY, MEMBRANE PEELING performed by Matteo Diane MD at [facility] MAIN OR ? ? PRO REPAIR COMPLEX RETINA DETACH VITRECTOMY & MEMB PEEL 01/08/2013 REPAIR COMPLEX RETINAL DETACHMENT, W/ VITRECTOMY, MEMBRANE PEELING performed by Matteo Diane MD at [facility] MAIN OR ??? PRO TX EXTENSIVE [...] unit (V-GO 40) Device 40 Units by [facility].(Non-Drug; Combo Route) route daily. 30 Device [...] Secondary to diabetic nephropathy. Outpatient HD at [facility]. - Access: LUE AVF - HD [...] WFL Vision & Perception: ?? corrective lenses sticker on ?? Blind in R eye ?? Endurance: [...] Occupational Therapy: 28(1x schm 1x theract) Pager: [phone] JEOVANNY Peterson Occupational Therapy Rehabilitation Department * [...] INSERTION performed by Erasmo Bajwa MD at [facility] ??? PRO REMV CATARACT EXTRACAP,INSERT LENS,COMP 07/18/2012 ? ? PRO REPAIR COMPLEX RETINA DETACH VITRECTOMY & MEMB PEEL 04/03/2012, 04/03/12 REPAIR COMPLEX RETINAL DETACHMENT, W/ VITRECTOMY, MEMBRANE PEELING performed by Matteo Diane MD at [facility] MAIN OR ? ? PRO REPAIR COMPLEX RETINA DETACH VITRECTOMY & MEMB PEEL 07/31/2012 REPAIR COMPLEX RETINAL DETACHMENT, W/ VITRECTOMY, MEMBRANE PEELING performed by Matteo Diane MD at [facility] MAIN OR ? ? PRO REPAIR COMPLEX RETINA DETACH VITRECTOMY & MEMB PEEL 01/08/2013 REPAIR COMPLEX RETINAL DETACHMENT, W/ VITRECTOMY, MEMBRANE PEELING performed by Matteo Diane MD at [facility] MAIN OR ??? PRO TX EXTENSIVE [...] wheelchair,neither pt nor drive. Pt uses a [employer] for transportation.Pt currently using cane d/t LLE [...] outlinedin this evaluation. Time IN / OUT: 2173-1119 Total Evaluation Minutes, Physical Therapy: 23(PT eval and gait training with RW) Ira Lizarraga, PT Pager: [phone] Physical Therapy Inpatient Rehabilitation Department * Plan [...] ??? Difficult intubation Two attempts (Mac3 and Abjwa 3 successful x 1 attempt. Suggest videolaryngoscope [...] INSERTION performed by Erasmo Bajwa MD at [facility] ??? PRO REMV CATARACT EXTRACAP,INSERT LENS,COMP 07/18/2012 ? ? PRO REPAIR COMPLEX RETINA DETACH VITRECTOMY & MEMB PEEL 04/03/2012, 04/03/12 REPAIR COMPLEX RETINAL DETACHMENT, W/ VITRECTOMY, MEMBRANE PEELING performed by Matteo Diane MD at [facility] MAIN OR ? ? PRO REPAIR COMPLEX RETINA DETACH VITRECTOMY & MEMB PEEL 07/31/2012 REPAIR COMPLEX RETINAL DETACHMENT, W/ VITRECTOMY, MEMBRANE PEELING performed by Matteo Diane MD at [facility] MAIN OR ? ? PRO REPAIR COMPLEX RETINA DETACH VITRECTOMY & MEMB PEEL 01/08/2013 REPAIR COMPLEX RETINAL DETACHMENT, W/ VITRECTOMY, MEMBRANE PEELING performed by Matteo Diane MD at [facility] MAIN OR ??? PRO TX EXTENSIVE [...] side Vision & Perception: ?? corrective lenses sticker on ?? Blind in R eye Communication: WFL [...] for a sock aid. Pt uses a tank house operator helper at baseline to doff socks. Functional Mobility: [...] of daily living. Equipment needs at discharge: tank house operator helper, sock aid Other Recommendations: ?? Utilize upright [...] and measurable assessment of functional outcome. Pager: [phone] Laureen Pantoja OT 10/20/2018 Occupational Therapy Rehabilitation [...] encounter: 105 kg (231 lb 7.7 oz). [place] Body Weight (IBW): [place] body weight: 59.2 kg (130 lb 8.2 oz) Adjusted ideal body weight: 77.5 kg (170 lb 14.4 oz) UBW: patient reports that his weight has increased a little bit since he moved to [place]; he states gradual increase in his dry [...] while inpatient THANKS MARÍA Limon Beeper #: [phone] * Plan of Care - Cari Anderson, [...] reinforcement provided;verbalization of feelings encouraged Diversional Activities smartphone;[employer] Family/Support System Care self-care encouraged Trust Relationship/Rapport [...] Glucose, POC 115 65 - 199 mg/dL [facility] Comment: Supplemental ranges: <140 mg/dL before meals <180 mg/dL all other times of the day Blood specimen (specimen) 10/22/2018 11:22 AM EDT 10/22/2018 11:22 AM EDT Rylan Stout MD POINT OF CARE TEST O RDERABLES [facility] [place] [address] * (ABNORMAL) PTH (10/22/2018 9:44 AM EDT) Parathyroid Hormone 131(H) 15 - 65 pg/mL [facility] Blood specimen (specimen) 10/22/2018 9:44 AM EDT 10/22/2018 10:21 AM EDT Narrative Resulting Agency Comment Spec In Lab Alan Condon MD CHEMISTRY ORDERABLES Performing Organization Address [facility] Co de Phone Number [facility] [place] [address] * POCT Glucose (10/22/2018 7:22 AM EDT) Glucose, POC 132 65 - 199 mg/dL [facility] Comment: Supplemental ranges: <140 mg/dL before meals <180 mg/dL all other times of the day Blood specimen (specimen) 10/22/2018 7:22 AM EDT 10/22/2018 7:22 AM EDT Rylan Stout MD POINT OF CARE TEST O RDERABLES Performing Organization Address [facility] Co de Phone Number [facility] [place] [address] * POCT Glucose (10/22/2018 3:44 AM EDT) Glucose, POC 136 65 - 199 mg/dL [facility] Comment: Supplemental ranges: <140 mg/dL before meals <180 mg/dL all other times of the day Blood specimen (specimen) 10/22/2018 3:44 AM EDT 10/22/2018 3:44 AM EDT Rylan Stout MD POINT OF CARE TEST O RDERAROSIE Performing Organization Address [facility] Co de Phone Number [facility] [place] [address] * POCT Glucose (10/21/2018 11:42 PM EDT) Glucose, POC 126 65 - 199 mg/dL [facility] Comment: Supplemental ranges: <140 mg/dL before meals <180 mg/dL all other times of the day Blood specimen (specimen) 10/21/2018 11:42 PM EDT 10/21/2018 11:42 PM EDT Rylan Stout MD POINT OF CARE TEST O ANTONETTE Performing Organization Address [facility] Co de Phone Number [facility] [place] [address] * (ABNORMAL) POCT Glucose (10/21/2018 8:13 PM EDT) Glucose, POC 233(H) 65 - 199 mg/dL [facility] Comment: Supplemental ranges: <140 mg/dL before meals <180 mg/dL all other times of the day Blood specimen (specimen) 10/21/2018 8:13 PM EDT 10/21/2018 8:13 PM EDT Rylan Stout MD POINT OF CARE TEST Collette WHITMAN Performing Organization Address [facility] Co de Phone Number [facility] [place] [address] * POCT Glucose (10/21/2018 3:17 PM EDT) Glucose, POC 113 65 - 199 mg/dL [facility] Comment: Supplemental ranges: <140 mg/dL before meals <180 mg/dL all other times of the day Blood specimen (specimen) 10/21/2018 3:17 PM EDT 10/21/2018 3:17 PM EDT Rylan Stout MD POINT OF CARE TEST O ANTONETTE Performing Organization Address [facility] Co de Phone Number [facility] [place] [address] * (ABNORMAL) POCT Glucose (10/21/2018 11:16 AM EDT) Glucose, POC 201(H) 65 - 199 mg/dL [facility] Comment: Supplemental ranges: <140 mg/dL before meals <180 mg/dL all other times of the day Blood specimen (specimen) 10/21/2018 11:16 AM EDT 10/21/2018 11:16 AM EDT Rylan Stout MD POINT OF CARE TEST Collette WHITMAN Performing Organization Address [facility] Co de Phone Number [facility] [place] [address] * Hepatitis B Surface Antigen (10/21/2018 8:56 AM EDT) Hepatitis B Surface Antigen Negative Negative [facility] Blood specimen (specimen) 10/21/2018 8:56 AM EDT 10/21/2018 9:39 AM EDT Narrative Resulting Agency Comment Spec In Lab Alan Condon MD CHEMISTRY ORDERABLES Performing Organization Address [facility] de Phone Number [facility] [place] [address] * POCT Glucose (10/21/2018 6:53 AM EDT) [facility] Glucose, POC 113 65 - 199 mg/dL [facility] Comment: Supplemental ranges: <140 mg/dL before meals <180 mg/dL all other times of the day Blood specimen (specimen) 10/21/2018 6:53 AM EDT 10/21/2018 6:53 AM EDT Ahsan Guevara MD POINT OF CARE TEST Collette WHITMAN Performing Organization Address [facility] de Phone Number [facility] [place] [address] * (ABNORMAL) Phosphorus (10/21/2018 6:42 AM EDT) Phosphorus 5.8(H) 2.5 - 4.5 mg/dL [facility] Blood specimen (specimen) Venous Draw / Unknown 10/21/2018 6:42 AM EDT 10/21/2018 8:42 AM EDT Narrative Resulting Agency Comment Spec In Lab Magen Chaudhari MD CHEMISTRY ORDERA BLES Performing Organization Address City/[facility]/ZIP Co de Phone Number [facility] [place] [address] * (ABNORMAL) Differential, Automated (10/21/2018 6:42 AM EDT) Neutrophil % 73.9 % [facility] Neutrophil Absolute 5.34 1.70 - 6.10 x10(3)/mc L [facility] Lymph % 14.2 % [facility] Lymphocytes Abs 1.0 0.9 - 3.2 x10(3)/mc L [facility] Monocyte % 7.9 % [facility] Monocyte Abs 0.6 0.3 - 0.9 x10(3)/mc L [facility] Eos % 1.9 % [facility] Eosinophils Abs 0.1 0.0 - 0.4 x10(3)/mc L [facility] Basophil % 0.6 % [facility] Baso Absolute 0.0 0.0 - 0.1 x10(3)/mc L [facility] Immature Gran % 1.50 % [facility] Comment: Immature granulocytes(IG's)percentage and absolute count will include metamyelocytes, myelocytes, and promyelocytes. Blood smears from CBCs yielding IG's will be scanned manually for concordance. If this scan disagrees with the automated IG or if promyelocytes are noted, a manual differential will be performed. Immature Gran Absolute 0.11(H) 0.00 - 0.04 x10(3)/mc L [facility] Blood specimen (specimen) 10/21/2018 6:42 AM EDT 10/21/2018 6:51 AM EDT Narrative Resulting Agency Comment Spec In Lab Cari Burkett MD HEMATOLOGY ORDERABLE S Performing Organization Address [facility]/ZIP Co de Phone Number [facility] [place] [address] * (ABNORMAL) Hemogram (10/21/2018 6:42 AM EDT) [facility] White Blood Cell 7.2 4.0 - 9.5 x10(3)/ L [facility] Red Blood Cell 3.10(L) 4.58 - 5.54 x10(6)/mc L [facility] Hemoglobin 9.8(L) 13.7 - 16.5 gm/dL [facility] Hematocrit 29.9(L) 40.5 - 48.5 % [facility] Mean Cell Volume 96.5(H) 82.9 - 93.1 [facility] Mean Cell Hemoglobin 31.6 27.5 - 32.1 pg [facility] Mean Cell Hemoglobin Concentration 32.8 32.0 - 35.7 gm/dL [facility] Platelet 253 145 - 357 x10(3)/[facility] RDW Standard Deviation 47.8(H) 36.0 - 45.0 [facility] RDW coefficient of variation 13.6 11.4 - 13.8 % [facility] Mean Platelet Volume 8.9 7.6 - 12.9 [facility] NRBC% auto 0.0 % [facility] NRBC Absolute 0.000 0.000 - 0.000 x10(3)/[facility] Blood specimen (specimen) 10/21/2018 6:42 AM EDT 10/21/2018 6:51 AM EDT Narrative Resulting Agency Comment Spec In Lab Cari Burkett MD HEMATOLOGY ORDERABLE S [facility] [place] [address] * (ABNORMAL) Basic Metabolic Panel (non-fasting) (10/21/2018 6:42 AM EDT) [facility] Glucose 122 65 - 199 mg/dL [facility] Comment:Diabetes: >=200 mg/d L plus symptoms Blood Urea Nitrogen 39(H) 10 - 20 mg/dL [facility] Creatinine 4.50(H) 0.80 - 1.50 mg/dL [facility] Sodium 133(L) 135 - 145 mmol/L [facility] Potassium 4.3 3.5 - 5.0 mmol/L [facility] Comment: Please note: ??Patients with WBC >100,000 may have falsely elevated Potassium levels. ??For accurate Potassium quantification in these patients send serum separator tube (gold top) for subsequent determinations. ??Contact the Clinical Chemistry Laboratory if there are any questions. Chloride 91(L) 98 - 107 mmol/L [facility] Carbon Dioxide 31 22 - 31 mmol/L [facility] Anion Gap 11 5 - 15 mmol/L [facility] Calcium 8.5 8.5 - 10.5 mg/dL [facility] Est Glomerular Filtration Rate 13(L) >=60 mL/min/1. 73 m?? [facility] Comment: The eGFR was calculated using the CKD-EPI equation. As with all creatinine based estimates of kidney function, eGFR values calculated with the CKD-EPI equation are not accurate in patients with acute kidney failure, extremes of body mass or the acutely ill. http://[email or web address]/[email or web address] eGFR 15(L) >=60 mL/min/1. 73 m?? [facility] Comment: The eGFR was calculated using the CKD-EPI equation. As with all creatinine based estimates of kidney function, eGFR values calculated with the CKD-EPI equation are not accurate in patients with acute kidney failure, extremes of body mass or the acutely ill. [email or web address] Blood specimen (specimen) 10/21/2018 6:42 AM EDT 10/21/2018 6:51 AM EDT Narrative Resulting Agency Comment Spec In Lab Ahsan Guevara MD CHEMISTRY ORDERABLES [facility] [place] [address] * POCT Glucose (10/21/2018 4:15 AM EDT) Glucose, POC 115 65 - 199 mg/dL [facility] Comment: Supplemental ranges: <140 mg/dL before meals <180 mg/dL all other times of the day Blood specimen (specimen) 10/21/2018 4:15 AM EDT 10/21/2018 4:15 AM EDT Ahsan Guevara MD POINT OF CARE TEST O RDERAROSIE [facility] [place] [address] * POCT Glucose (10/20/2018 11:31 PM EDT) Glucose, POC 88 65 - 199 mg/dL [facility] Comment: Supplemental ranges: <140 mg/dL before meals <180 mg/dL all other times of the day Blood specimen (specimen) 10/20/2018 11:31 PM EDT 10/20/2018 11:31 PM EDT Ahsan Guevara MD POINT OF CARE TEST O FREDERICKERAROSIE [facility] [place] [address] * POCT Glucose (10/20/2018 7:53 PM EDT) Glucose, POC 170 65 - 199 mg/dL [facility] Comment: Supplemental ranges: <140 mg/dL before meals <180 mg/dL all other times of the day Blood specimen (specimen) 10/20/2018 7:53 PM EDT 10/20/2018 7:53 PM EDT Ahsan Guevara MD POINT OF CARE TEST O RDERAROSIE [facility] [place] [address] * (ABNORMAL) Differential, Automated (10/20/2018 7:12 PM EDT) Neutrophil % 73.3 % [facility] Neutrophil Absolute 4.76 1.70 - 6.10 x10(3)/mc L [facility] Lymph % 13.9 % [facility] Lymphocytes Abs 0.9 0.9 - 3.2 x10(3)/ L [facility] Monocyte % 8.0 % [facility] Monocyte Abs 0.5 0.3 - 0.9 x10(3)/[facility] LABOR[facility] Eos % 2.6 % [facility] Eosinophils Abs 0.2 0.0 - 0.4 x10(3)/[facility] LABORATORY Basophil % 0.8 % [facility] Baso Absolute 0.0 0.0 - 0.1 x10(3)/[facility] LABOR[facility] Immature Gran % 1.40 % [facility] Comment: Immature granulocytes(IG's)percentage and absolute count will include metamyelocytes, myelocytes, and promyelocytes. Blood smears from CBCs yielding IG's will be scanned manually for concordance. If this scan disagrees with the automated IG or if promyelocytes are noted, a manual differential will be performed. Immature Gran Absolute 0.09(H) 0.00 - 0.04 x10(3)/ L [facility] Blood specimen (specimen) 10/20/2018 7:12 PM EDT 10/20/2018 7:40 PM EDT Narrative Resulting Agency Comment Spec In Lab Cari Burkett MD HEMATOLOGY ORDERABLE S [facility] [place] [address] * (ABNORMAL) Hemogram (10/20/2018 7:12 PM EDT) White Blood Cell 6.5 4.0 - 9.5 x10(3)/mc L [facility] Red Blood Cell 3.15(L) 4.58 - 5.54 x10(6)/[facility] Hemoglobin 9.8(L) 13.7 - 16.5 gm/dL [facility] Hematocrit 31.0(L) 40.5 - 48.5 % [facility] Mean Cell Volume 98.4(H) 82.9 - 93.1 [facility] LAB[facility]ATORY Mean Cell Hemoglobin 31.1 27.5 - 32.1 pg [facility] Mean Cell Hemoglobin Concentration 31.6(L) 32.0 - 35.7 gm/dL [facility] Platelet 259 145 - 357 x10(3)/[facility] LABORATORY RDW Standard Deviation 48.1(H) 36.0 - 45.0 [facility] LABORATORY RDW coefficient of variation 13.4 11.4 - 13.8 % [facility] Mean Platelet Volume 9.2 7.6 - 12.9 [facility] LABORATORY NRBC% auto 0.0 % [facility] NRBC Absolute 0.000 0.000 - 0.000 x10(3)/[facility] LABORATORY Blood specimen (specimen) 10/20/2018 7:12 PM EDT 10/20/2018 7:40 PM EDT Narrative Resulting Agency Comment Spec In Lab Cari Burkett MD HEMATOLOGY ORDERABLE S [facility] [place] [address] * (ABNORMAL) Basic Metabolic Panel (non-fasting) (10/20/2018 7:12 PM EDT) Glucose 196 65 - 199 mg/dL [facility] Comment:Diabetes: >=200 mg/d L plus symptoms Blood Urea Nitrogen 35(H) 10 - 20 mg/dL [facility] Comment:result rechecked-RG Creatinine 3.81(H) 0.80 - 1.50 mg/dL [facility] Comment:result rechecked-RG Sodium 132(L) 135 - 145 mmol/L [facility] Potassium 4.4 3.5 - 5.0 mmol/L [facility] Comment: Please note: ??Patients with WBC >100,000 may have falsely elevated Potassium levels. ??For accurate Potassium quantification in these patients send serum separator tube (gold top) for subsequent determinations. ??Contact the Clinical Chemistry Laboratory if there are any questions. Chloride 89(L) 98 - 107 mmol/L [facility] Carbon Dioxide 32(H) 22 - 31 mmol/L [facility] Anion Gap 11 5 - 15 mmol/L [facility] Calcium 8.6 8.5 - 10.5 mg/dL [facility] Est Glomerular Filtration Rate 16(L) >=60 mL/min/1. 73 m?? [facility] Comment: The eGFR was calculated using the CKD-EPI equation. As with all creatinine based estimates of kidney function, eGFR values calculated with the CKD-EPI equation are not accurate in patients with acute kidney failure, extremes of body mass or the acutely ill. [email or web address] eGFR 19(L) >=60 mL/min/1. 73 m?? [facility] Comment: The eGFR was calculated using the CKD-EPI equation. As with all creatinine based estimates of kidney function, eGFR values calculated with the CKD-EPI equation are not accurate in patients with acute kidney failure, extremes of body mass or the acutely ill. [email or web address] Blood specimen (specimen) 10/20/2018 7:12 PM EDT 10/20/2018 7:40 PM EDT Narrative Resulting Agency Comment Spec In Lab Ahsan Guevara MD CHEMISTRY ORDERABLES [facility] [place] [address] * POCT Glucose (10/20/2018 4:16 PM EDT) Glucose, POC 152 65 - 199 mg/dL [facility] Comment: Supplemental ranges: <140 mg/dL before meals <180 mg/dL all other times of the day Blood specimen (specimen) 10/20/2018 4:16 PM EDT 10/20/2018 4:16 PM EDT Ahsan Guevara MD POINT OF CARE TEST O ANTONETTE [facility] [place] [address] * CT Lower Extremity w Contrast Left [...] Glucose, POC 237(H) 65 - 199 mg/dL [facility] Comment: Supplemental ranges: <140 mg/dL before meals <180 mg/dL all other times of the day Blood specimen (specimen) 10/20/2018 11:37 AM EDT 10/20/2018 11:37 AM EDT Ahsan Guevara MD POINT OF CARE TEST O RDERABLES Performing Organization Address [facility]/ZIP Co de Phone Number [facility] [place] [address] * (ABNORMAL) POCT Glucose (10/20/2018 9:14 AM EDT) Glucose, POC 236(H) 65 - 199 mg/dL [facility] Comment: Supplemental ranges: <140 mg/dL before meals <180 mg/dL all other times of the day Blood specimen (specimen) 10/20/2018 9:14 AM EDT 10/20/2018 9:14 AM EDT Bessy Anaya MD POINT OF CARE TE ST ORDERABLES Performing Organization Address City/[facility]/ZIP Co de Phone Number [facility] [place] [address] * POCT Glucose (10/20/2018 6:54 AM EDT) Glucose, POC 175 65 - 199 mg/dL [facility] Comment: Supplemental ranges: <140 mg/dL before meals <180 mg/dL all other times of the day Blood specimen (specimen) 10/20/2018 6:54 AM EDT 10/20/2018 6:54 AM EDT Bessy Anaya MD POINT OF CARE TE ST ORDERABLES Performing Organization Address City/[facility]/ZIP Co de Phone Number [facility] [place] [address] * POCT Glucose (10/20/2018 3:26 AM EDT) Glucose, POC 195 65 - 199 mg/dL [facility] Comment: Supplemental ranges: <140 mg/dL before meals <180 mg/dL all other times of the day Blood specimen (specimen) 10/20/2018 3:26 AM EDT 10/20/2018 3:26 AM EDT Bessy Anaya MD POINT OF CARE TE ST ORDERABLES Performing Organization Address [facility] Co de Phone Number [facility] [place] [address] * (ABNORMAL) POCT Glucose (10/19/2018 11:42 PM EDT) Glucose, POC 217(H) 65 - 199 mg/dL [facility] Comment: Supplemental ranges: <140 mg/dL before meals <180 mg/dL all other times of the day Blood specimen (specimen) 10/19/2018 11:42 PM EDT 10/19/2018 11:42 PM EDT Bessy Anaya MD POINT OF CARE TE ST ORDERABLES Performing Organization Address City/[facility] Co de Phone Number [facility] [place] [address] * (ABNORMAL) POCT Glucose (10/19/2018 9:38 PM EDT) Glucose, POC 241(H) 65 - 199 mg/dL [facility] Comment: Supplemental ranges: <140 mg/dL before meals <180 mg/dL all other times of the day Blood specimen (specimen) 10/19/2018 9:38 PM EDT 10/19/2018 9:38 PM EDT Bessy Anaya MD POINT OF CARE TE ST ORDERABLES Performing Organization Address [facility] Co de Phone Number [facility] [place] [address] * POCT Glucose (10/19/2018 8:21 PM EDT) Glucose, POC 181 65 - 199 mg/dL [facility] Comment: Supplemental ranges: <140 mg/dL before meals <180 mg/dL all other times of the day Blood specimen (specimen) 10/19/2018 8:21 PM EDT 10/19/2018 8:21 PM EDT Bessy Anaya MD POINT OF CARE TE ST ORDERABLES Performing Organization Address [facility] de Phone Number [facility] [place] [address] * POCT Glucose (10/19/2018 6:40 PM EDT) Glucose, POC 165 65 - 199 mg/dL [facility] Comment: Supplemental ranges: <140 mg/dL before meals <180 mg/dL all other times of the day Blood specimen (specimen) 10/19/2018 6:40 PM EDT 10/19/2018 6:[address] Evgeny Paez MD POINT OF CARE TEST O RDERABLES Performing Organization Address [facility] Co de Phone Number [facility] [place] [address] * EKG 12 Lead (10/19/2018 5:02 PM EDT) Ventricular rate 97 BPM MUSE SYSTEM Atrial Rate 97 BPM MUSE SYSTEM P-R Interval 184 ms MUSE SYSTEM QRS Duration 92 ms MUSE SYSTEM Q-T Interval 370 ms MUSE SYSTEM QTC Calculated (Bezet) 469 ms MUSE SYSTEM Calculated P [place] 61 degrees MUSE SYSTEM Calculated R [place] 50 degrees MUSE SYSTEM Calculated T [place] 73 degrees MUSE SYSTEM INTERPRETATION Sinus rhythm [...] Text Report Department: Vascular Surgery Lab Patient: [id number] (SINDI RUDOLPH) CPT: 87863 ICD10: M79.605;R60.0;L03. 116 Referring Physician: SINAN PATEL [...] L-Lactate2 Whole Blood (10/19/2018 3:23 PM EDT) [facility] Lactate WB 1.6 0.5 - 2.2 mmol/L [facility] Blood specimen (specimen) 10/19/2018 3:23 PM EDT 10/19/2018 3:[address] Evgeny Paez MD CHEMISTRY ORDERABLES Performing Organization Address City/[facility]/ZIP Co de Phone Number [facility] [place] [address] * (ABNORMAL) Hepatic Function Panel (10/19/2018 3:20 PM EDT) [facility] Protein, Total 8.5(H) 6.1 - 8.0 gm/dL [facility] Albumin 4.1 3.2 - 5.2 gm/dL [facility] Aspartate Aminotransferase 69(H) 0 - 39 unit/L [facility] Alanine Aminotransferase 33 0 - 55 unit/L [facility] Alkaline Phosphatase 164(H) 40 - 120 unit/L [facility] Bilirubin, Total Not Perf 0.2 - 1.3 mg/dL [facility] Comment:Analyte stability ex ceeded; test not performed. Bilirubin, Direct Not Perf 0.0 - 0.3 mg/dL [facility] Comment:Analyte stability ex ceeded; test not performed. Blood specimen (specimen) Venous Draw / Unknown 10/19/2018 3:20 PM EDT 10/19/2018 4:29 PM EDT Narrative Resulting Agency Comment Spec In Lab Cari Burkett MD CHEMISTRY ORDERABLES Performing Organization Address [facility] Co de Phone Number [facility] [place] [address] * Blue Tube HOLD (10/19/2018 3:20 PM EDT) [facility] Blue Hold Sample in lab. [facility] Blood specimen (specimen) Venous Draw / Unknown 10/19/2018 3:20 PM EDT 10/19/2018 3:33 PM EDT Ahsan EDGAR HEMATOLOGY ORDERABLE S [facility] [place] [address] * (ABNORMAL) Differential, Automated (10/19/2018 3:20 PM EDT) Neutrophil % 71.8 % [facility] Neutrophil Absolute 4.78 1.70 - 6.10 x10(3)/[facility] LAB[facility] Lymph % 13.1 % [facility] Lymphocytes Abs 0.9 0.9 - 3.2 x10(3)/[facility] LABOR[facility]ORY Monocyte % 7.5 % [facility] Monocyte Abs 0.5 0.3 - 0.9 x10(3)/[facility] LAB[facility] Eos % 3.0 % [facility] Eosinophils Abs 0.2 0.0 - 0.4 x10(3)/[facility] LAB[facility] Basophil % 0.8 % [facility] Baso Absolute 0.0 0.0 - 0.1 x10(3)/[facility] LABOR[facility] Immature Gran % 3.80 % [facility] Comment: Immature granulocytes(IG's)percentage and absolute count will include metamyelocytes, myelocytes, and promyelocytes. Blood smears from CBCs yielding IG's will be scanned manually for concordance. If this scan disagrees with the automated IG or if promyelocytes are noted, a manual differential will be performed. Immature Gran Absolute 0.25(H) 0.00 - 0.04 x10(3)/ L [facility] Blood specimen (specimen) 10/19/2018 3:20 PM EDT 10/19/2018 3:32 PM EDT Narrative Resulting Agency Comment Spec In Lab Ahsan EDGAR HEMATOLOGY ORDERABLE S Performing Organization Address City/[facility]/ZIP Co de Phone Number [facility] [place] [address] * (ABNORMAL) Hemogram (10/19/2018 3:20 PM EDT) White Blood Cell 6.6 4.0 - 9.5 x10(3)/mc L [facility] Red Blood Cell 3.50(L) 4.58 - 5.54 x10(6)/mc L [facility] Hemoglobin 11.1(L) 13.7 - 16.5 gm/dL [facility] Hematocrit 34.3(L) 40.5 - 48.5 % [facility] Mean Cell Volume 98.0(H) 82.9 - 93.1 fL [facility] Mean Cell Hemoglobin 31.7 27.5 - 32.1 pg [facility] Mean Cell Hemoglobin Concentration 32.4 32.0 - 35.7 gm/dL [facility] Platelet 277 145 - 357 x10(3)/mc L [facility] RDW Standard Deviation 50.4(H) 36.0 - 45.0 fL [facility] RDW coefficient of variation 14.1(H) 11.4 - 13.8 % [facility] Mean Platelet Volume 9.3 7.6 - 12.9 fL [facility] NRBC% auto 0.0 % [facility] NRBC Absolute 0.000 0.000 - 0.000 x10(3)/mc L [facility] Blood specimen (specimen) 10/19/2018 3:20 PM EDT 10/19/2018 3:32 PM EDT Narrative Resulting Agency Comment Spec In Lab Ahsan EDGAR HEMATOLOGY ORDERABLE S [facility] [place] [address] * (ABNORMAL) Basic Metabolic Panel (non-fasting) (10/19/2018 3:20 PM EDT) Glucose 216(H) 65 - 199 mg/dL [facility] Comment:Diabetes: >=200 mg/d L plus symptoms Blood Urea Nitrogen 17 10 - 20 mg/dL [facility] Creatinine 2.78(H) 0.80 - 1.50 mg/dL [facility] Sodium 139 135 - 145 mmol/L [facility] Potassium 3.6 3.5 - 5.0 mmol/L [facility] Comment: Please note: ??Patients with WBC >100,000 may have falsely elevated Potassium levels. ??For accurate Potassium quantification in these patients send serum separator tube (gold top) for subsequent determinations. ??Contact the Clinical Chemistry Laboratory if there are any questions. Chloride 91(L) 98 - 107 mmol/L [facility] Carbon Dioxide 36(H) 22 - 31 mmol/L [facility] Anion Gap 12 5 - 15 mmol/L [facility] Calcium 9.4 8.5 - 10.5 mg/dL [facility] Est Glomerular Filtration Rate 24(L) >=60 mL/min/1. 73 m?? [facility] Comment: The eGFR was calculated using the CKD-EPI equation. As with all creatinine based estimates of kidney function, eGFR values calculated with the CKD-EPI equation are not accurate in patients with acute kidney failure, extremes of body mass or the acutely ill. [email or web address] – [email or web address] eGFR 28(L) >=60 mL/min/1. 73 m?? [facility] Comment: The eGFR was calculated using the CKD-EPI equation. As with all creatinine based estimates of kidney function, eGFR values calculated with the CKD-EPI equation are not accurate in patients with acute kidney failure, extremes of body mass or the acutely ill. [email or web address] Blood specimen (specimen) 10/19/2018 3:20 PM EDT 10/19/2018 3:32 PM EDT Narrative Resulting Agency Comment Spec In Lab Sinan Patel MD CHEMISTRY ORDERABLES [facility] [address] [place] [address] documented in this encounter Visit Diagnoses Diagnosis [...] on dialysis 1306 (Given - Provider: Tali Alxeandre RN) glucagon (human recombinant) injection SolR 1 mg(Linked Group 2) 1 mg, Intramuscular, EVERY 1 HOUR PRN, Starting on [facility] 10/19/18 at 2008, Until [place] 10/22/18 at 1626, Low blood sugar, For [...] Buccal, EVERY 30 MIN PRN, Starting on [facility] 10/19/18 at 2008, Until [place] 10/22/18 at 1626, Low blood sugar, For [...] Intravenous, EVERY 1 HOUR PRN, Starting on [facility] 10/19/18 at 2008, Until [place] 10/22/18 at 1626, Low blood sugar, For [...] Routine documented in this encounter Care Teams Lunchroom Attendant Relationship Specialty Start Date End Date Jarad Keller DNP PCP - General Family Medicine 06/05/18 02/09/21 documented as of this encounter
--- OUTSIDE RECORDS SUMMARY | 2024-02-24 17:01 | XMS_ITS | Encounter Summary ---
[place] [address] Care Team Providers Care Military Pilot Name Role Phone Jarad Keller DNP Primary Care Provider [phone] Encounter Details Date Type Department Care Team (Late Contact Info) Description 07/21/2018 Telephone [place] [id number] Tamar Smith RN Social History Tobacco Use [...] on filedocumented in this encounter Care Teams Military Pilot Relationship Specialty Start Date End Date Jarad Keller DNP PCP - General Family Medicine 06/05/18 02/09/21 documented as of this encounter
--- OUTSIDE RECORDS SUMMARY | 2024-02-24 17:01 | XMS_ITS | Encounter Summary ---
[place] [address] Care Team Providers Care Route Rider Supervisor Name Role Phone Jarad Keller DNP Primary Care Provider [phone] Encounter Details Date Type Department Care Team (Late st Contact Info) Description 10/19/2018 4:00 PM EDT Tech Visit [place] [address] Mekhi Doss, RVT Social History Tobacco Use [...] on filedocumented in this encounter Care Teams Route Rider Supervisor Relationship Specialty Start Date End Date Jarad Keller DNP PCP - General Family Medicine 06/05/18 02/09/21 documented as of this encounter
--- OUTSIDE RECORDS SUMMARY | 2024-02-24 17:01 | XMS_ITS | Encounter Summary ---
[place] [address] Care Team Providers Care Senior Microsoft Net Developer Name Role Phone Jarad Keller DNP Primary Care Provider [phone] Encounter Details Date Type Department Care Team (Late st Contact Info) Description 06/08/2018 Orders Only [place] [address] Tamar Smith RN Pre-transplant evaluation for kidney [...] MD HEMATOLOGY ORDERA BLES Performing Organization Address City/[facility]/ZIP Co de Phone Number [facility] [place] [address] * (ABNORMAL) Fructosamine (06/08/2018 3:29 PM EST) Fructosamine (AUGUST) 538(H) 200 - 285 mcmol/L [facility] Comment: Test Performed by: [address] [address] Blood specimen (specimen) 06/08/2018 3:29 PM EST 06/09/2018 8:46 AM EST Narrative Resulting Agency Comment Spec In Lab Young Watts MD LAB SEND OUT JAY BEVERLY Performing Organization Address City/[facility] Co de Phone Number [facility] [place] [address] documented in this encounter Visit Diagnoses Diagnosis Pre-transplant evaluation for kidney transplant Other specified pre-operative examination 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
--- OUTSIDE RECORDS SUMMARY | 2024-02-24 17:01 | XMS_ITS | Encounter Summary ---
Author Organization [facility] [place] [place] [address] Care Team Providers Care Customer Support Manager Name Role Phone Ej Duran MD Primary Care Provider Reason for Visit * Reason Comments Pseudophakia 1 week s/p YAG CAP O S done 11/15/2013 Encounter Details Date Type Department Care Team (Late st Contact Info) Description 11/23/2013 12:45 PM EDT Office [place] [address] Erasmo Bajwa MD [facility] [place] [address] PCO (posterior capsular opacification), left (Primary Dx) [...] unspecified documented in this encounter Care Teams Customer Support Manager Relationship Specialty Start Date End Date Ej Duran MD [address] [place] [address] PCP - General 10/28/11 06/04/18 documented as of this encounter
--- OUTSIDE RECORDS SUMMARY | 2024-02-24 17:01 | XMS_ITS | Encounter Summary ---
Author Organization [facility] [place] [address] Care Team Providers Care Story Teller Name Role Phone Jarad Keller DANIKA Primary Care Provider [phone] Reason for Referral * Consultation (Routine) - Specialty Diagnoses / Procedures Referred By Puneet hallman Referred To Contact Ophthalmology Diagnoses Type 2 diabetes mellitus with retinopathy, with long-term current use of insulin, macular edema presence unspecified, unspecified laterality, unspecified retinopathy severity Ceasar Roy MD [facility] [place] [address] Gudelia Carter OD [facility] [place] [address] Referral ID Status Reason Start Date Expiration Date V isits Requested Visits Authorized [id number] Consult, Test & Treat 08/18/2018 08/18/2019 1 1 Reason for Visit * Consultation (Routine) - Specialty Diagnoses / Procedures Referred By Contac t Referred To Contact Endocrinology Diagnoses DM TYPE 2, END STAGE RENAL DISEASE Jarad Keller, DNP [address] [place] [address] [facility] [address] [place] [address] Referral ID Status Reason Start Date Expiration Date V isits Requested Visits Authorized [id number] Consult, Test & Treat [facility] 06/05/2018 06/05/2019 6 6 Encounter Details Date Type Department Care Team (Late st Contact Info) Description 08/18/2018 9:00 AM EDT Office [place] [address] Ceasar Roy MD [facility] [place] [address] Type 2 diabetes mellitus with retinopathy, with [...] type 2 diabetes. He recently moved from [place], and since moving to this area DM [...] transplant and has established care with [facility]. 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 No smoking, former quit age [...] Office Visit from 08/18/2018 in Endocrinology at [place] Office Visit from 06/08/2018 in Solid Organ Transplant at [place] Weight 103 kg (227 lb) 1 08/18/2018 [...] eye exam, I made referral to [facility] ophthalmology given complexity of his retinopathy - medications: restart Vgo 40 and 6 clicks with each meal (12 clicks) 2) HTN: His BP is elevated today but he tells me he runs low at HD, so I will defer potential medication titration to his ticketer 3) Obesity class II with serious comorbidity - we discussed at length that loss of 5-10% of his body weight would have significant positive impact to improve cardiometabolic risk - encouraged him to increase activity as tolerated to 30 minutes on most days - I strongly recommend referral to weight and wellness center at [facility]. He will discuss with his due to complexity of getting rides to [facility] and let me know if he would like a referral Please do not hesitate to contact me with questions A note will be sent to the referring provider Return to clinic 6-8 weeks Ceasar Roy MD Automatic Profile Shaper Operatoraudio/visual operator Endocrinology Section [facility] documented in this encounter Plan of [...] present documented in this encounter Care Teams Story Teller Relationship Specialty Start Date End Date Jarad Keller DNP PCP - General Family Medicine 06/05/18 02/09/21 documented as of this encounter
--- OUTSIDE RECORDS SUMMARY | 2024-02-24 17:01 | XMS_ITS | Encounter Summary ---
[place] [address] Care Team Providers Care Claim Adjuster Name Role Phone Jarad Keller DNP Primary Care Provider [phone] Reason for Visit * Reason Onset Date Comments Medication Refill 06/15/2019 Encounter Details Date Type Department Care Team (Late st Contact Info) Description 06/15/2019 [place] [address] Ray Pearl RN Social History Tobacco Use [...] on filedocumented in this encounter Care Teams Claim Adjuster Relationship Specialty Start Date End Date Jarad Keller DNP PCP - General Family Medicine 06/05/18 02/09/21 documented as of this encounter
--- OUTSIDE RECORDS SUMMARY | 2024-02-24 17:01 | XMS_ITS | Encounter Summary ---
[place] [address] Care Team Providers Care Turnaround Planner Name Role Phone Jarad Keller DNP Primary Care Provider [phone] Encounter Details Date Type Department Care Team (Late st Contact Info) Description 06/27/2018 Notes Only [place] [address] Tamar Smith RN Social History Tobacco Use [...] on filedocumented in this encounter Care Teams Turnaround Planner Relationship Specialty Start Date End Date Jarad Keller DNP PCP - General Family Medicine 06/05/18 02/09/21 documented as of this encounter
--- OUTSIDE RECORDS SUMMARY | 2024-02-24 17:01 | XMS_ITS | Encounter Summary ---
[place] [address] Care Team Providers Care Cotton Seed Culler Name Role Phone Jarad Keller DNP Primary Care Provider [phone] Encounter Details Date Type Department Care Team (Late st Contact Info) Description 06/27/2018 Telephone [place] [phone] Tamar Smith RN Social History Tobacco Use [...] what was done/ not done at [facility]. Requested some records from them as not [...] filedocumented in this encounter Care Teams Cotton Seed Culler Relationship Specialty Start Date End Date Jarad Keller DNP PCP - General Family Medicine 06/05/18 02/09/21 documented as of this encounter
--- OUTSIDE RECORDS SUMMARY | 2024-02-24 17:01 | XMS_ITS | Encounter Summary ---
[place] [address] Care Team Providers Care Visitor Information Assistant Name Role Phone Jarad Keller DNP Primary Care Provider [phone] Reason for Visit * Reason Onset Date Comments Prior Authorization 09/29/2018 VGo 40 Encounter Details Date Type Department Care Team (Late st Contact Info) Description 09/29/2018 [place] [phone] Simi Singh airplane and engine inspector (VGo 40) Social History Tobacco Use Types [...] coverage on injections Health plan: Medicare Authorizing physician relations representative name: Virgie Faxed to health plan on: 09/29/18 via [facility] Health plan decision: Quantity approved: Authorization number: [...] on filedocumented in this encounter Care Teams Visitor Information Assistant Relationship Specialty Start Date End Date Jarad Keller DNP PCP - General Family Medicine 06/05/18 02/09/21 documented as of this encounter
--- OUTSIDE RECORDS SUMMARY | 2024-02-24 17:01 | XMS_ITS | Encounter Summary ---
Author Organization [facility] [place] [place] [address] Care Team Providers Care Supervisor Tile And Mottle Name Role Phone Ej Duran MD Primary Care Provider [phone] Reason for Visit * Reason Comments Eye Pain 1 month follow up on eye pain OD Encounter Details Date Type Department Care Team (Late st Contact Info) Description 03/27/2013 1:15 PM EST Office [place] [address] Matteo Diane MD [facility] DR [place]AL[place] [address] Hyperopia (Primary Dx) Discharge Disposition: Home Social [...] Hypermetropia documented in this encounter Care Teams Supervisor Tile And Mottle Relationship Specialty Start Date End Date Ej Duran MD [address] [place] [address] PCP - General 10/28/11 06/04/18 documented as of this encounter
--- OUTSIDE RECORDS SUMMARY | 2024-02-24 17:01 | XMS_ITS | Encounter Summary ---
Author Organization [facility] [place] [address] Care Team Providers Care Living Nurse Name Role Phone Ej Duran MD Primary Care Provider [phone] Reason for Visit * Reason Comments Decreased Visual Acuity Sent by Dr. Jaden velez to evaluate need for possible YAG Capsulotomy OS Encounter Details Date Type Department Care Team (Late st Contact Info) Description 10/03/2013 3:45 PM EDT [place] [address] Erasmo Bajwa MD [facility] [place] [address] PCO (posterior capsular opacification), left (Primary Dx); [...] means documented in this encounter Care Teams Living Nurse Relationship Specialty Start Date End Date Ej Duran MD [address] [place] [address] PCP - General 10/28/11 06/04/18 documented as of this encounter
--- OUTSIDE RECORDS SUMMARY | 2024-02-24 17:01 | XMS_ITS | Encounter Summary ---
Author Organization [facility] [address] [place] [address] Care Team Providers Care Rotary Drier Name Role Phone Ej Duran MD Primary Care Provider [phone] Reason for Visit * Reason Comments PDR 4 wk f/u Encounter Details Date Type Department Care Team (Late st Contact Info) Description 06/12/2013 2:45 PM EST [place] [address] Matteo Diane MD [facility] [place] [address] Hyperopia, bilateral; Proliferative diabetic retinopathy, both eyes, [...] hypertension documented in this encounter Care Teams Rotary Drier Relationship Specialty Start Date End Date Ej Duran MD [address] [place] [address] PCP - General 10/28/11 06/04/18 documented as of this encounter
--- OUTSIDE RECORDS SUMMARY | 2024-02-24 17:01 | XMS_ITS | Encounter Summary ---
Author Organization [facility] [place] [address] Care Team Providers Care Last Waxer Name Role Phone Jarad Keller DNP Primary Care Provider [phone] Reason for Visit * Reason Onset Date Comments Medication Refill 06/25/2019 Encounter Details Date Type Department Care Team (Late st Contact Info) Description 06/25/2019 Ref[place] [address] Ceasar Roy MD [facility] [place] [address] Social History Tobacco Use Types Packs/Day Years [...] on filedocumented in this encounter Care Teams Last Waxer Relationship Specialty Start Date End Date Jarad eKller DNP PCP - General Family Medicine 06/05/18 02/09/21 documented as of this encounter
--- OUTSIDE RECORDS SUMMARY | 2024-02-24 17:01 | XMS_ITS | Encounter Summary ---
Author Organization [facility] [place] [address] Care Team Providers Care School Guidance Counselor Name Role Phone Ej Duran MD Primary Care Provider [phone] Reason for Visit * Reason Comments Diabetes 3-mon f/u for PDR Encounter Details Date Type Department Care Team (Late st Contact Info) Description 09/14/2013 2:30 PM EDT Follow-[place] [address] Matteo Diane MD [facility] [place] [address] Proliferative diabetic retinopathy, both eyes, type 1, [...] documented in this encounter Care Teams School Guidance Counselor Relationship Specialty Start Date End Date Ej Duran MD [address] [place] [address] PCP - General 10/28/11 06/04/18 documented as of this encounter
--- OUTSIDE RECORDS SUMMARY | 2024-02-24 17:01 | XMS_ITS | Encounter Summary ---
[place] [address] Care Team Providers Care Mushroom Laborer Name Role Phone Jarad Keller DNP Primary Care Provider [phone] Encounter Details Date Type Department Care Team (Late st Contact Info) Description 06/08/2018 2:00 PM EST Office Visit [place] [address] Pre-transplant evaluation for kidney transplant Social History [...] this encounter Progress Notes * Tacos Gill, [facility] - 06/08/2018 2:00 PM EST Encounter Date: [...] prescription refills. However, when moving back to [place] from [place], he lost his insurance coverage. He has [...] prescribed and covered since his move to [place] from [place]. He is seeing endocrinology at [facility] in July, and he is hoping to [...] be reinstated soon. 3. The need for alf medication and potential adjustment of medications post-transplant [...] examination documented in this encounter Care Teams Mushroom Laborer Relationship Specialty Start Date End Date Jarad Keller DNP PCP - General Family Medicine 06/05/18 02/09/21 documented as of this encounter
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
--- OUTSIDE RECORDS SUMMARY | 2024-02-24 17:01 | XMS_ITS | Encounter Summary ---
[place] [address] Care Team Providers Care Automatic Bow Maker Machine Tender Name Role Phone Ej Duran MD Primary Care Provider [phone] Reason for Visit * Reason Comments Procedure YAG CAP OS Encounter Details Date Type Department Care Team (Latest Contact Info) Description 11/15/2013 12:30 PM EDT Procedure [place] [address] Erasmo Bajwa MD [facility] [place] [address] PCO (posterior capsular opacification), left (Primary Dx) [...] unspecified documented in this encounter Care Teams Automatic Bow Maker Machine Tender Relationship Specialty Start Date End Date Ej Duran MD [address] [place] [address] PCP - General 10/28/11 06/04/18 documented as of this encounter
--- OUTSIDE RECORDS SUMMARY | 2024-02-24 17:01 | XMS_ITS | Encounter Summary ---
[place] [address] Care Team Providers Care Call Center Supervisor Name Role Phone Jarad Keller DNP Primary Care Provider [phone] Encounter Details Date Type Department Care Team (Late st Contact Info) Description 06/21/2018 Telephone [place] [address] Tamar Smith RN Social History Tobacco Use [...] discuss what was done/ not done at [facility]. Requested some records from them as not [...] on filedocumented in this encounter Care Teams Call Center Supervisor Relationship Specialty Start Date End Date Jarad Keller DNP PCP - General Family Medicine 06/05/18 02/09/21 documented as of this encounter
--- OUTSIDE RECORDS SUMMARY | 2024-02-24 17:01 | XMS_ITS | Encounter Summary ---
Author Organization [facility] [place] [address] Care Team Providers Care Supervisor Small Appliance Assembly Name Role Phone Ej Duran MD Primary Care Provider [phone] Reason for Visit * Reason Comments Diabetes 1-wk f/u for PDR-OU Encounter Details Date Type Department Care Team (Late st Contact Info) Description 12/04/2013 1:00 PM EDT Follow-[place] [address] Matteo Diane MD [facility] [place] [address] Proliferative diabetic retinopathy, both eyes, type 1, [...] Next month, he will be moving to [place]. When he secures a retina specialist, he [...] Primary documented in this encounter Care Teams Supervisor Small Appliance Assembly Relationship Specialty Start Date End Date Ej Duran MD [address] [place] [address] PCP - General 10/28/11 06/04/18 documented as of this encounter
--- OUTSIDE RECORDS SUMMARY | 2024-02-24 17:01 | XMS_ITS | Encounter Summary ---
[place] [address] Care Team Providers Care Corporate Safety Director Name Role Phone Ej Duran MD Primary Care Provider [phone] Encounter Details Date Type Department Care Team (Late st Contact Info) Description 05/09/2018 Abstract [place] [address] Jessica Santos Social History Tobacco Use Types [...] on filedocumented in this encounter Care Teams Corporate Safety Director Relationship Specialty Start Date End Date Ej Duran MD [address] [place] [address] PCP - General 10/28/11 06/04/18 documented as of this encounter
--- OUTSIDE RECORDS SUMMARY | 2024-02-24 17:01 | XMS_ITS | Encounter Summary ---
[facility] [place] [place] [address] Care Team Providers Care Industrial Electrician Journeyman Name Role Phone Jarad Keller DNP Primary Care Provider [phone] Encounter Details Date Type Department Care Team (Late st Contact Info) Description 10/19/2018 Telephone [place]phrology [place] [address] Too Morgan MD [facility] [place] [address] Social History Tobacco Use Types Packs/Day Years [...] in dialysis. He was recently admitted to [facility]. He was admitted for cellulitis and [...] dialysis can be done. We will call [facility] to see if they can accept him in transfer. documented in this encounter Plan of Treatment Not on file documented as of this encounter Visit Diagnoses Not on filedocumented in this encounter Care Teams Industrial Electrician Journeyman Relationship Specialty Start Date End Date Jarad Keller DNP PCP - General Family Medicine 06/05/18 02/09/21 documented as of this encounter
--- OUTSIDE RECORDS SUMMARY | 2024-02-24 17:01 | XMS_ITS | Encounter Summary ---
Author Organization [facility] [place] [address] Care Team Providers Care Naphthalene Still Operator Name Role Phone Jarad Keller DNP Primary Care Provider [phone] Encounter Details Date Type Department Care Team (Late st Contact Info) Description 06/08/2018 11:00 AM EST Office Visit [place] [address] Daily, Young Ramirez MD [facility] [place] [address] IDDM (insulin dependent diabetes mellitus); Hypertension, unspecified [...] He tells me he has had a [place] kidney biopsy and this was done somewhere in [place]. He is known about his diabetes for [...] ??? YAG CAPSULOTOMY 11/15/2013 OS - Dr aBjwa FAMILY HISTORY: Family History Problem Relation Age [...] from 01/08/2013 in Same Day Program at [facility] Admission (Discharged) from 11/29/2012 in Outpatient Surgery Center [facility] Weight 103.4 kg (228 lb) (Abnormal) [...] return for putting your dorothy in the [facility] transplant center. We will be discussing [...] MS, FACS Chief of Solid Organ Transplant [facility] documented in this encounter Plan of [...] adult documented in this encounter Care Teams Naphthalene Still Operator Relationship Specialty Start Date End Date Jarad Keller DNP PCP - General Family Medicine 06/05/18 02/09/21 documented as of this encounter
--- OUTSIDE RECORDS SUMMARY | 2024-02-24 17:01 | XMS_ITS | Encounter Summary ---
[place] [address] Care Team Providers Care Lower School Spanish Teacher Name Role Phone Jarad Keller DNP Primary Care Provider [phone] Encounter Details Date Type Department Care Team (Late st Contact Info) Description 08/07/2018 Telephone [place] [address] Tamar Smith, RN Social History Tobacco Use [...] on filedocumented in this encounter Care Teams Lower School Spanish Teacher Relationship Specialty Start Date End Date Jarad Keller DNP PCP - General Family Medicine 06/05/18 02/09/21 documented as of this encounter
--- OUTSIDE RECORDS SUMMARY | 2024-02-24 17:01 | XMS_ITS | Encounter Summary ---
Author Organization [facility] [place] [address] Care Team Providers Care Rural Mail Carrier Name Role Phone Jarad Keller DNP Primary Care Provider [phone] Encounter Details Date Type Department Care Team (Late st Contact Info) Description 06/08/2018 11:30 AM EST Office Visit [place] [address] Derrick Watts MD [facility] DR [place] [address] Pre-transplant evaluation for kidney transplant; Stage 5 [...] the patient received their treatment from is: [place] ? 2016 Previously lwait listed at [facility] Reason for referral: Evaluation for [...] up!!; 6 months ago stress test at [facility] Seborrhea Edentulous Balance problems uses cane Morbid obesity BMI near 38 Past Surgical History: Procedure Laterality Date ??? CATARACT EXTRACTION, EXTRACAPSULAR, W/ LENS INSERTION 11/29/12 OS - DMM ??? CATARACT REMOVAL 07/18/12 OD [facility] ??? PERIPHERAL IRIDOTOMY 04/06/2012 OD [facility] ??? PRO REMV CATARACT EXTRACAP,INSERT LENS 11/29/2012 CATARACT EXTRACTION, EXTRACAPSULAR, W/ LENS INSERTION performed by Erasmo Bajwa MD at [facility] ??? PRO REMV CATARACT EXTRACAP,INSERT LENS,COMP 07/18/2012 ? ? PRO REPAIR COMPLEX RETINA DETACH VITRECTOMY & MEMB PEEL 04/03/2012, 04/03/12 REPAIR COMPLEX RETINAL DETACHMENT, W/ VITRECTOMY, MEMBRANE PEELING performed by Matteo Diane MD at [facility] MAIN OR ? ? PRO REPAIR COMPLEX RETINA DETACH VITRECTOMY & MEMB PEEL 07/31/2012 REPAIR COMPLEX RETINAL DETACHMENT, W/ VITRECTOMY, MEMBRANE PEELING performed by Matteo Diane MD at [facility] MA[facility] OR ? ? PRO REPAIR COMPLEX RETINA DETACH VITRECTOMY & MEMB PEEL 01/08/2013 REPAIR COMPLEX RETINAL DETACHMENT, W/ VITRECTOMY, MEMBRANE PEELING performed by Matteo Diane MD at [facility] MA[facility] OR ??? PRO TX EXTENSIVE [...] Hx ??? 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 Neurological: No asymmetries, DTRs or mechanical designer Skin: no active lesions Assessment: Mr. Maurice [...] 90 Minutes in direct face to face group home counselor. DERRICK WATTS MD documented in this [...] for kidney transplant HIV SCREEN, 4TH GENERATION ([facility]/CGP/APD/NLH) Routine 06/08/2018 3:29 PM EST Pre-transplant [...] evaluation for kidney transplant TYPE AND SCREEN ([facility]/CGP/GAMALIEL) Routine 06/08/2018 3:29 PM EST Pre-transplant [...] 3:29 PM EST) Ab Screen Interp Negative [facility] Expires at [id number] on: 06/11/2018 [facility] Blood specimen (specimen) 06/08/2018 3:29 PM EST 06/08/2018 3:37 PM EST Narrative Resulting Agency Comment Spec In Lab Derrick Watts MD BLOOD BANK LAB OR DERABLES Performing Organization Address City/[facility]/ZIP Co de Phone Number [facility] [place] [address] * ABO/Rh Typing (06/08/2018 3:29 PM EST) Pathologist [facility] ABORH Type A Pos [facility] Blood specimen (specimen) 06/08/2018 3:29 PM EST 06/08/2018 3:37 PM EST Narrative Resulting Agency Comment Spec In Lab Derrick Watts MD BLOOD BANK LAB OR DERABLES Performing Organization Address [facility]/ZIP Co de Phone Number [facility] [place] [address] * (ABNORMAL) Hemoglobin and Hematocrit, blood (06/08/2018 3:29 PM EST) Hemoglobin 12.5(L) 13.7 - 16.5 gm/dL [facility] Hematocrit 35.4(L) 40.5 - 48.5 % [facility] Blood specimen (specimen) 06/08/2018 3:29 PM EST 06/08/2018 3:34 PM EST Narrative Resulting Agency Comment Spec In Lab Derrick Watts MD HEMATOLOGY ORDERA BLES Performing Organization Address [facility] Co de Phone Number [facility] [place] [address] * (ABNORMAL) Fructosamine (06/08/2018 3:29 PM EST) Fructosamine (AUGUST) 538(H) 200 - 285 mcmol/L [facility] Comment: Test Performed by: [address] [address] Blood specimen (specimen) 06/08/2018 3:29 PM EST 06/09/2018 8:46 AM EST Narrative Resulting Agency Comment Spec In Lab Derrick Watts MD LAB SEND OUT ORDToma RABJERARDO Performing Organization Address [facility] Co de Phone Number [facility] [place] [address] * (ABNORMAL) C-peptide (06/08/2018 3:29 PM EST) Pathologist [facility] C-Peptide 11.0(H) 0.8 - 5.2 ng/mL [facility] Blood specimen (specimen) 06/08/2018 3:29 PM EST 06/08/2018 3:34 PM EST Narrative Resulting Agency Comment Spec In Lab Derrick Watts MD CHEMISTRY ORDERAB LES Performing Organization Address [facility] Co de Phone Number [facility] [place] [address] * PSA (06/08/2018 3:29 PM EST) Prostate Specific Antigen (Ultrasensitiv e) 0.80 0.00 - 4.00 ng/mL [facility] Blood specimen (specimen) 06/08/2018 3:29 PM EST 06/08/2018 3:34 PM EST Narrative Resulting Agency Comment Spec In Lab Derrick Watts MD CHEMISTRY ORDERAB LES [facility] [place] [address] * (ABNORMAL) Hemoglobin A1c (06/08/2018 3:29 PM EST) Hemoglobin A1c 11.2(H) 4.3 - 5.6 % [facility] [...] Mellitus, Diabetes Care 2013; 36: Suppl. 1, S67-60 Estimated Average Glucose 275 mg/dL [facility] Comment: eAG equivalents [...] into estimated average glucose values. ??Diabetes Care 2008:31(8):7880-4730. Blood specimen (specimen) 06/08/2018 3:29 PM EST 06/08/2018 3:34 PM EST Narrative Resulting Agency Comment Spec In Lab Derrick Watts MD CHEMISTRY ORDERAB LES Performing Organization Address [facility] de Phone Number [facility] [place] [address] * Varicella zoster Antibody, IgG (06/08/2018 3:29 PM EST) Varicella Zoster Antibody IgG Pos [facility] Blood specimen (specimen) 06/08/2018 3:29 PM EST 06/09/2018 7:28 AM EST Narrative Resulting Agency Comment Spec In Lab Derrick Watts MD IMMUNOLOGY ORDERA BLES Performing Organization Address [facility] Phone Number [facility] [place] [address] * (ABNORMAL) Toxoplasma Antibody, IgG (06/08/2018 3:29 PM EST) Toxoplasma Antibody IgG Positive( A) Negative [facility] Blood specimen (specimen) 06/08/2018 3:29 PM EST 06/09/2018 7:28 AM EST Narrative Resulting Agency Comment Spec In Lab Derrick Watts MD IMMUNOLOGY ORDERA BLES Performing Organization Address [facility] de Phone Number [facility] [place] [address] * Syphilis Screening Antibody with reflex RPR (06/08/2018 3:29 PM EST) Syphilis IgG/IgM Negative Negative [facility] Blood specimen (specimen) 06/08/2018 3:29 PM EST 06/08/2018 3:34 PM EST Narrative Resulting Agency Comment Spec In Lab Derrick Watts MD CHEMISTRY ORDERAB LES Performing Organization Address [facility] Co de Phone Number [facility] [place] [address] * HIV Screen, 4th Generation (06/08/2018 3:29 PM EST) Pathologist [facility] HIV Ab/Ag Screen Negative Negative [facility] [...] MD CHEMISTRY ORDERAB LES Performing Organization Address [facility] Co de Phone Number [facility] [place] [address] * (ABNORMAL) HSV 1 and 2 IgG Antibodies (06/08/2018 3:29 PM EST) Pathologist [facility] HSV Type 1 Ab, IgG Pos(A) Neg [facility] HSV Type 2 Ab, IgG Pos(A) Neg [facility] Blood specimen (specimen) 06/08/2018 3:29 PM EST 06/09/2018 7:28 AM EST Narrative Resulting Agency Comment Spec In Lab Derrick Watts MD IMMUNOLOGY ORDERA BLES Performing Organization Address [facility] Co de Phone Number [facility] [place] [address] * (ABNORMAL) Carlie-Carballo Virus Antibodies (06/08/2018 3:29 PM EST) Pathologist [facility] EBV (VCA) IgG Ab Pos(A) Neg [facility] EBV (VCA) IgM Ab Neg Neg [facility] EBNA Antibodies Pos(A) Neg [facility] EBV Interpretation Results suggest past infection. [facility] Comment: In most populations, at [...] MD IMMUNOLOGY ORDERA BLES Performing Organization Address [facility] Co de Phone Number [facility] [place] [address] * CMV Antibody, IgG (06/08/2018 3:29 PM EST) CMV IgG Negative Negative [facility] Blood specimen (specimen) 06/08/2018 3:29 PM EST 06/09/2018 7:28 AM EST Narrative Resulting Agency Comment Spec In Lab Derrick Watts MD IMMUNOLOGY ORDERA BLES Performing Organization Address [facility] Co de Phone Number [facility] [place] [address] * Hepatitis C RNA, quantitative, PCR (06/08/2018 3:29 PM EST) HCV Viral Load <12 IU/mL [facility] HCV Viral Load Result: <12 IU/mL(Target Not Detected) Indication for Study: Hepatitis C Infection Analysis: The Ham RealTime HCV assay is an in vitro reverse geosciences associate professor polymerase chain reaction (RT-PCR)for the quantitation of hepatitis C viral (HCV) RNA in human serum or plasma (EDTA) from HCV-infected individuals. Sample: plasma (0.7 mL minimum volume) Method: Ham RealTime HCV Assay Linear Range: 12 IU/mL - 100,000,000IU/mL Note: The Ham RealTime HCV Assay has been approved by the U.S. Food and Drug Administration. [facility] Comment: [VERIFIED DATE]06.13.18 Verified By:Denisse Clarke (Electronic Signature) Blood specimen (specimen) 06/08/2018 3:29 PM EST 06/12/2018 8:45 AM EST Narrative Resulting Agency Comment Spec In Lab Derrick Watts MD MOLECULAR ORDERAB LES Performing Organization Address [facility] Co de Phone Number [facility] [place] [address] * Hepatitis C Antibody (06/08/2018 3:29 PM EST) Hepatitis C Antibody Negative Negative [facility] Blood specimen (specimen) 06/08/2018 3:29 PM EST 06/08/2018 3:34 PM EST Narrative Resulting Agency Comment Spec In Lab Derrick Watts MD CHEMISTRY ORDERAB LES Performing Organization Address [facility] de Phone Number [facility] [place] [address] * Hepatitis B Surface Antigen (06/08/2018 3:29 PM EST) Hepatitis B Surface Antigen Negative Negative [facility] Blood specimen (specimen) 06/08/2018 3:29 PM EST 06/08/2018 3:34 PM EST Narrative Resulting Agency Comment Spec In Lab Derrick Watts MD CHEMISTRY ORDERAB LES Performing Organization Address [facility] de Phone Number [facility] [place] [address] * Hepatitis B Surface Antibody (06/08/2018 3:29 PM EST) Hepatitis B Surface Antibody, Quantitative 235.3 IU/L [facility] Comment: HepB Surface Ab Quant: [...] MD CHEMISTRY ORDERAB LES Performing Organization Address [facility] Co de Phone Number [facility] [place] [address] * Hepatitis B Core Antibody, IgM (06/08/2018 3:29 PM EST) Hepatitis B Core IgM Negative Negative [facility] Blood specimen (specimen) 06/08/2018 3:29 PM EST 06/08/2018 3:34 PM EST Narrative Resulting Agency Comment Spec In Lab Derrick Watts MD CHEMISTRY ORDERAB LES Performing Organization Address [facility] Phone Number [facility] [place] [address] * Prothrombin Time (06/08/2018 3:29 PM EST) Prothrombin Time 11.7 9.4 - 12.5 sec [facility] International Normalization Ratio 1.0 [facility] Comment: An INR <2.0 indicates [...] MD HEMATOLOGY ORDERA BLES Performing Organization Address [facility] Co de Phone Number [facility] [place] [address] * APTT (06/08/2018 3:29 PM EST) Partial Thromboplastin Time 34 25 - 37 sec [facility] Comment: The PTT is NOT appropriate for heparin monitoring. Use the Anti-Xa level for heparin monitoring (HEP UFH) or LMWH monitoring (HEP LMW). A PTT less than 37 seconds generally indicates adequate hemostasis. Blood specimen (specimen) 06/08/2018 3:29 PM EST 06/08/2018 3:34 PM EST Narrative Resulting Agency Comment Spec In Lab Derrick Watts MD HEMATOLOGY ORDERA BLES [facility] [place] [id number] documented in this encounter Visit Diagnoses Diagnosis [...] uncontrolled documented in this encounter Care Teams Rural Mail Carrier Relationship Specialty Start Date End Date Jarad Keller DNP PCP - General Family Medicine 06/05/18 02/09/21 documented as of this encounter
--- OUTSIDE RECORDS SUMMARY | 2024-02-24 17:01 | XMS_ITS | Encounter Summary ---
Author Organization [facility] [place] [address] Care Team Providers Care Injection Molding Machine Offbearer Name Role Phone Jarad Keller DANIKA Primary Care Provider [phone] Reason for Visit * Consultation (Routine) - Closed Specialty Diagnoses / Procedures Referred By Puneet hallman Referred To Contact Transplant Procedures TXP Too Jang MD [facility] [place] [address] Young Watts MD [facility] [place] [address] Referral ID Status Reason Start Date Expiration Date Visits Re quested Visits Authorized [id number] Closed 05/09/2018 05/09/2019 1 1 Encounter Details Date Type Department Care Team (Latest Contact Info) Description 06/08/2018 9:00 AM EST Clinical Support [place] [address] Young Watts MD [facility] [place] [address] Pre-transplant evaluation for kidney transplant Social History [...] examination documented in this encounter Care Teams Injection Molding Machine Offbearer Relationship Specialty Start Date End Date Jarad Keller DNP PCP - General Family Medicine 06/05/18 02/09/21 documented as of this encounter
--- OUTSIDE RECORDS SUMMARY | 2024-02-24 17:01 | XMS_ITS | Encounter Summary ---
[place] [address] Care Team Providers Care Wreath And Garland Maker Hand Name Role Phone Jarad Keller DNP Primary Care Provider [phone] Encounter Details Date Type Department Care Team (Late st Contact Info) Description 06/08/2018 2:30 PM EST Office Visit [place] [address] Tamar Smith RN Pre-transplant evaluation for kidney [...] Required Testing: Up to date Immunizations: Tetanus, [id number], [id number], shingles, Hep B series, and yearly flu ([facility] in [place]) Healthcare Maintenance: Yearly physical, colonoscopy ([facility] in [place]) and BRAULIO Cardiac: EKG and Cardiac stress test every other year while on the wait list ([facility] in [place]) Labs: Serologies, ABO, and tissue typing Vascular: [facility] (maybe in [place]) Radiology: Chest X-ray ([facility]) Other testing may be needed based [...] examination documented in this encounter Care Teams Wreath And Garland Maker Hand Relationship Specialty Start Date End Date Jarad Keller DNP PCP - General Family Medicine 06/05/18 02/09/21 documented as of this encounter
--- OUTSIDE RECORDS SUMMARY | 2024-02-24 17:02 | XMS_ITS | Encounter Summary ---
Author Organization [facility] [place] [address] Care Team Providers Care Nut Cracker Name Role Phone Ej Duran MD Primary Care Provider [phone] Reason for Visit * Reason Comments Post Op [address] re pair Encounter Details Date Type Department Care Team (Late st Contact Info) Description 01/15/2013 11:15 AM EDT Office [place] [address] Matteo Diane MD [facility] DR OPHTHALM[place] [address] Acute angle-closure glaucoma of right eye; Diabetes [...] uncontrolled documented in this encounter Care Teams Nut Cracker Relationship Specialty Start Date End Date Ej Duran MD [address] [place] [address] PCP - General 10/28/11 06/04/18 documented as of this encounter
--- OUTSIDE RECORDS SUMMARY | 2024-02-24 17:02 | XMS_ITS | Encounter Summary ---
Author Organization [facility] [place] [address] Care Team Providers Care Scarfer Operator Name Role Phone Ej Duran MD Primary Care Provider [phone] Reason for Visit * Reason Comments Cataract for cat eval os, s/p vtx od, psph od ischemia od, acg od ,vtx, mp, rd repair od SWENDALEAH Ardon Encounter Details Date Type Department Care Team (Late st Contact Info) Description 11/06/2012 3:15 PM EDT Office [place] [address] Erasmo Bajwa MD [facility] [place] [address] Cataract (Primary Dx); IDDM (insulin dependent diabetes [...] uncontrolled documented in this encounter Care Teams Scarfer Operator Relationship Specialty Start Date End Date Ej Duran MD [address] [place] [address] PCP - General 10/28/11 06/04/18 documented as of this encounter
--- OUTSIDE RECORDS SUMMARY | 2024-02-24 17:02 | XMS_ITS | Encounter Summary ---
Author Organization [facility] [place] [address] Care Team Providers Care Customer Loyalty Representative Name Role Phone Ej Duran MD Primary Care Provider [phone] Reason for Visit * Reason Comments Post Op 1 day post op.OD () Encounter Details Date Type Department Care Team (Late st Contact Info) Description 01/09/2013 12:30 PM EDT Office [place] [address] Matteo Diane MD [facility] [place] [address] Proliferative diabetic retinopathy, both eyes. Status post [...] hypertension documented in this encounter Care Teams Customer Loyalty Representative Relationship Specialty Start Date End Date Ej Duran MD [address] [place] [address] PCP - General 10/28/11 06/04/18 documented as of this encounter
--- OUTSIDE RECORDS SUMMARY | 2024-02-24 17:02 | XMS_ITS | Encounter Summary ---
Author Organization [facility] [place] [address] Care Team Providers Care Product Safety And Standards Engineer Name Role Phone Ej Duran MD Primary Care Provider [phone] Reason for Visit * Reason Comments Post Op 3 wk ck s/p repair o f tractional detachment and removal of retained lens material OD 07/31/12 Encounter Details Date Type Department Care Team (Late st Contact Info) Description 08/22/2012 2:00 PM EDT Office [place] [address] Rylan Gasca MD [facility] DR [place] [address] Acute angle-closure glaucoma (Primary Dx) Discharge Disposition: [...] Primary documented in this encounter Care Teams Product Safety And Standards Engineer Relationship Specialty Start Date End Date Ej Duran MD [address] [place] [address] PCP - General 10/28/11 06/04/18 documented as of this encounter
--- OUTSIDE RECORDS SUMMARY | 2024-02-24 17:02 | XMS_ITS | Encounter Summary ---
Author Organization [facility] [place] [address] Care Team Providers Care Chief Operator Lock Tender Name Role Phone Ej Duran MD Primary Care Provider [phone] Reason for Visit * Reason Comments Post Op Repair of Tractional Detachment OD/ PDR OU Encounter Details Date Type Department Care Team (Late st Contact Info) Description 02/01/2013 2:00 PM EDT Office [place] [address] Matteo Diane MD [facility] [place] [address] Hyperopia; Proliferative diabetic retinopathy, both eyes; Ocular [...] hypertension documented in this encounter Care Teams Chief Operator Lock Tender Relationship Specialty Start Date End Date Ej Duran MD [address] [place] [address] PCP - General 10/28/11 06/04/18 documented as of this encounter
--- OUTSIDE RECORDS SUMMARY | 2024-02-24 17:02 | XMS_ITS | Encounter Summary ---
Author Organization [facility] [place] [address] Care Team Providers Care Patient Relations Director Name Role Phone Ej Duran MD Primary Care Provider [phone] Encounter Details Date Type Department Care Team (Late st Contact Info) Description 11/29/2012 12:11 PM EDT Anesthesia Event [place] [address] Kim Ellis MD [facility] [place] [address] Ruddy Foy MD [facility] [place] [address] Anesthesia Record Procedure Summary Procedure Name Responsible [...] PEELING performed by Matteo Diane MD at [facility] OR ??? Peripheral iridotomy 04/06/2012 [...] COMPLEX performed by Phillip Schwartz MD at [facility] ??? Vitrectomy, w/ membrane stripping 04/03/2012 OD, CBC ? ? Repair complex retina detach vitrectomy & memb peel 07/31/2012 REPAIR COMPLEX RETINAL DETACHMENT, W/ VITRECTOMY, MEMBRANE PEELING performed by Matteo Diane MD at [facility] Got 40-60 mg of [...] Assessment: Rhythm: regular Pulmonary Assessment: Dental Assessment: [place] Assessment: Other exam findings: Dentures Mustache / [...] risks discussed with patient. Plan discussed with MACHINE CLOTHING WORKER. [facility]: documented in this encounter Plan of [...] mL documented in this encounter Care Teams Patient Relations Director Relationship Specialty Start Date End Date Ej Duran MD [address] [place] [address] PCP - General 10/28/11 06/04/18 documented as of this encounter
--- OUTSIDE RECORDS SUMMARY | 2024-02-24 17:02 | XMS_ITS | Encounter Summary ---
Author Organization [facility] [place] [address] Care Team Providers Care Wheelchair Rental Clerk Name Role Phone Ej Duran MD Primary Care Provider [phone] Reason for Visit * Reason Comments Blurred Vision Patient presents for postoperative evaluation. CBC in Encounter Details Date Type Department Care Team (Late st Contact Info) Description 09/12/2012 3:45 PM EDT [place] [address] Matteo Diane MD [facility] [place] [address] Proliferative diabetic retinopathy, both eyes (Primary Dx); [...] glaucoma documented in this encounter Care Teams Wheelchair Rental Clerk Relationship Specialty Start Date End Date Ej Duran MD [address] [place] [address] PCP - General 10/28/11 06/04/18 documented as of this encounter
--- OUTSIDE RECORDS SUMMARY | 2024-02-24 17:02 | XMS_ITS | Encounter Summary ---
Author Organization [facility] [place] [address] Care Team Providers Care Interventional Radiology Technologist Name Role Phone Ej Duran MD Primary Care Provider [phone] Reason for Visit * Reason Comments Blurred Vision Patient presents for postoperative evaluation of each eye. ESTRELLA Hardy Encounter Details Date Type Department Care Team (Late st Contact Info) Description 12/19/2012 3:45 PM EDT [place] [address] [facility] [place] [address] Acute angle-closure glaucoma of right eye (Primary [...] EDT December 19, [address] [facility] [address] [place] [address] RE: Maurice Rudolph A#: [id number] Duran: I had the pleasure [...] way to reach me is through my data analysis assistant at [phone]. Respectfully, Matteo Diane MD documented in this [...] uncontrolled documented in this encounter Care Teams Interventional Radiology Technologist Relationship Specialty Start Date End Date Ej Duran MD [address] [place] [address] PCP - General 10/28/11 06/04/18 documented as of this encounter
--- OUTSIDE RECORDS SUMMARY | 2024-02-24 17:02 | XMS_ITS | Encounter Summary ---
Author Organization [facility] [place] [place] [address] Care Team Providers Care Hog Stomach Preparer Name Role Phone Ej Duran MD Primary Care Provider [phone] Reason for Visit * Reason Comments Post Op S/P Cataract extract ion w/ IOL OS 11/29/12 (DMM) Encounter Details Date Type Department Care Team (Late st Contact Info) Description 12/05/2012 2:00 PM EDT Office [place] [address] Inocencia Reyes MD [facility] [place] [address] Post-operative state (Primary Dx); Pseudophakia; PDR (proliferative [...] uncontrolled documented in this encounter Care Teams Hog Stomach Preparer Relationship Specialty Start Date End Date Ej Duran MD [address] [place] [address] PCP - General 10/28/11 06/04/18 documented as of this encounter
--- OUTSIDE RECORDS SUMMARY | 2024-02-24 17:02 | XMS_ITS | Encounter Summary ---
Author Organization [facility] [place] [address] Care Team Providers Care Cupola Patcher Helper Name Role Phone Ej Duran MD Primary Care Provider [phone] Encounter Details Date Type Department Care Team (Late st Contact Info) Description 07/31/2012 7:30 AM EDT - 07/31/2012 8:28 AM EDT Surgery [place] [address] Ruthann Beckett MD [facility] [place] [address] REPAIR COMPLEX RETINAL DETACH W/VITRECTOMY, MEMBRANE PEELING, [...] all eye drops to tomorrow's appointment. Call [phone] for all questions concerns. Right side down [...] Beckett MD - 07/31/2012 9:00 AM EDT [facility] [place] Operative Note Patient Name: Maurice Rudolph : [id number] MR#: [id number] Case Date: 07/31/2012 Surgeon: Surgeon(s) and Role: [...] at this time. Please note also the rtdagnal-gk-xlfxvlpa time was from 7:55 a.m. exactly until 8:55 a.m. The patient will return here postoperative day #1. He is to lie on the right side. Airway safety and venous thrombosis prevention measures will be reviewed again in the postoperative setting. He is to call the eye physician executive receptionist the overnight period if there are any [...] Operative Note Patient Name: Maurice Rudolph : [id number] MR#: [id number] Case Date: 07/31/2012 Surgeon: Surgeon(s) and Role: [...] * POCT Glucose (07/31/2012 9:09 AM EDT) [facility] Signature Glucose, POC 181 60 - [...] CARE T EST ORDERABLES Performing Organization Address [facility] Co de Phone Number BERHANE CASTRO [...] Given 07/31/2012 7:10 AM EDT 1 drop vvwutzal-psyypyvqv-ioefuirtmidku (DEXACINE) 3.5-10,000-0.1 mg-unit/g-% ophthalmic ointment ONCE PRN, [...] Beckett MD - Comment: mixed with bupivacaine) sbdxdhih-kicgsltiy-wnorvwqekuly e (DEXACINE) 3.5-10,000-0.1 mg-unit/g-% ophthalmic ointment (CANCELED) [...] cefazolin) documented in this encounter Care Teams Cupola Patcher Helper Relationship Specialty Start Date End Date Ej Duran MD [address] [place] [address] PCP - General 10/28/11 06/04/18 documented as of this encounter
--- OUTSIDE RECORDS SUMMARY | 2024-02-24 17:02 | XMS_ITS | Encounter Summary ---
Author Organization [facility] [place] [address] Care Team Providers Care Varying Exceptionalities Teacher Name Role Phone Ej Duran MD Primary Care Provider [phone] Reason for Visit * Reason Onset Date Comments Questions 02/22/2013 pt was told by monse olivas that dmm appointments were not needed Encounter Details Date Type Department Care Team ([facility] st Contact Info) Description 02/22/2013 Telephone [place] [address] Erasmo Bajwa MD [facility] [place] [address] Questions (pt was told by clemente that [...] on filedocumented in this encounter Care Teams Varying Exceptionalities Teacher Relationship Specialty Start Date End Date Ej Duran MD [address] [place] [address] PCP - General 10/28/11 06/04/18 documented as of this encounter
--- OUTSIDE RECORDS SUMMARY | 2024-02-24 17:02 | XMS_ITS | Encounter Summary ---
Author Organization [facility] [place] [place] [address] Care Team Providers Care Patrol Conductor Name Role Phone Ej Duran MD Primary Care Provider [phone] Reason for Visit * Reason Onset Date Comments Medication Refill 12/01/2012 pt stated he l ost the drops with the mabry cap Encounter Details Date Type Department Care Team (Late st Contact Info) Description 12/01/2012 [place] [address] Erasmo Bajwa MD [facility] [place] [address] Pseudophakia (Primary Dx) Social History Tobacco Use [...] means documented in this encounter Care Teams Patrol Conductor Relationship Specialty Start Date End Date Ej Duran MD [address] [place] [address] PCP - General 10/28/11 06/04/18 documented as of this encounter
--- OUTSIDE RECORDS SUMMARY | 2024-02-24 17:02 | XMS_ITS | Encounter Summary ---
[place] [address] Care Team Providers Care Nurse Discharge Planner Name Role Phone Ej Duran MD Primary Care Provider [phone] Reason for Visit * Reason Comments Procedure Here for fabienne MEIER CE. Encounter Details Date Type Department Care Team (Latest Contact Info) Description 06/26/2012 3:45 PM EST Clinical [place] [address] CLIN[address], DR MOISE Cataract (Primary Dx) Discharge [...] Procedure Name Priority Date/Time Associated Diagnosis Comments RZIVCXT-RNEFI-FPV CALC BY LASER INTERFEROMETRY - OU - BOTH EYES Routine 06/27/2012 4:31 PM EST Cataract documented in this encounter Results * UUJXVAK-JAZPU-IQY CALC BY LASER BYOLIZLIJODP-SE-RBDO EYES (06/27/2012 4:31 PM EST) Anatomical Region [...] cataract documented in this encounter Care Teams Nurse Discharge Planner Relationship Specialty Start Date End Date Ej Duran MD [address] [place] [address] PCP - General 10/28/11 06/04/18 documented as of this encounter
--- OUTSIDE RECORDS SUMMARY | 2024-02-24 17:02 | XMS_ITS | Encounter Summary ---
Author Organization [facility] [place] [address] Care Team Providers Care Mechanical Maintenance Engineer Name Role Phone Ej Duran MD Primary Care Provider [phone] Reason for Visit * Reason Comments Eye Problem PT STATES HERE FOR E RACHEL OF PAIN OD, Encounter Details Date Type Department Care Team (Late st Contact Info) Description 02/19/2013 2:30 PM EDT Office [place] [address] Young Duff MD [facility] [place] [address] Eye pain; Proliferative diabetic retinopathy, both eyes [...] for instructions. Please call the eye clinic, [phone], for any significant changes in vision, new [...] uncontrolled documented in this encounter Care Teams Mechanical Maintenance Engineer Relationship Specialty Start Date End Date Ej Duran MD [address] [place] [address] PCP - General 10/28/11 06/04/18 documented as of this encounter
--- OUTSIDE RECORDS SUMMARY | 2024-02-24 17:02 | XMS_ITS | Encounter Summary ---
[facility] [place] [address] Care Team Providers Care Swing Tender Name Role Phone Ej Duran MD Primary Care Provider [phone] Reason for Visit * Reason Comments Post Op 1 day ck s/p CE/IOL OS Encounter Details Date Type Department Care Team (Late st Contact Info) Description 11/30/2012 10:15 AM EDT [place] [address] Erasmo Bajwa MD [facility] [place] [address] Cataract extraction status (Primary Dx) Discharge Disposition: [...] Primary documented in this encounter Care Teams Swing Tender Relationship Specialty Start Date End Date Ej Duran MD [address] [place] [address] PCP - General 10/28/11 06/04/18 documented as of this encounter
--- OUTSIDE RECORDS SUMMARY | 2024-02-24 17:02 | XMS_ITS | Encounter Summary ---
[place] [address] Care Team Providers Care Director Electrical Engineering Name Role Phone Ej Duran MD Primary Care Provider [phone] Reason for Visit * Reason Onset Date Comments Eye Pain 02/19/2013 Encounter Details Date Type Department Care Team (Late st Contact Info) Description 02/19/2013 Telephone [place] [address] Young Duff MD [facility] [place] [address] Eye Pain Social History Tobacco Use Types [...] filedocumented in this encounter Care Teams Director Electrical Engineering Relationship Specialty Start Date End Date Ej Duran MD [address] [place] [address] PCP - General 10/28/11 06/04/18 documented as of this encounter
--- OUTSIDE RECORDS SUMMARY | 2024-02-24 17:02 | XMS_ITS | Encounter Summary ---
Author Organization [facility] [place] [place] [address] Care Team Providers Care Career Center Director Name Role Phone Ej Duran MD Primary Care Provider [phone] Reason for Visit * Reason Comments Detached Retina OD 2 day IOP check Encounter Details Date Type Department Care Team (Late st Contact Info) Description 08/03/2012 1:00 PM EDT Office [place] [address] Matteo Diane MD [facility] [place] [address] ACG (angle-closure glaucoma) (Primary Dx); Proliferative diabetic [...] glaucoma documented in this encounter Care Teams Career Center Director Relationship Specialty Start Date End Date Ej Duran MD [address] [place] [address] PCP - General 10/28/11 06/04/18 documented as of this encounter
--- OUTSIDE RECORDS SUMMARY | 2024-02-24 17:02 | XMS_ITS | Encounter Summary ---
Author Organization [facility] [place] [address] Care Team Providers Care Distributor Cleaner Name Role Phone Ej Duran MD Primary Care Provider [phone] Encounter Details Date Type Department Care Team (Late st Contact Info) Description 01/08/2013 7:31 AM EDT Anesthesia Event [place] [address] Alissa Muse MD [facility] [place] [address] Mariajose Wilkinson MD [facility] [place] [address] Anesthesia Record Procedure Summary Procedure Name Responsible [...] Wilkinson - 01/08/2013 12:24 PM EDT Patient: Mauriec A Rudolph Procedure(s) Performed: Procedure(s): REPAIR COMPLEX [...] at [facility] MAIN OR ??? Peripheral iridotomy 04/06/2012 [...] at [facility] MAIN OR ??? Remv cataract extracap,insert lens,comp 07/18/2012 ??? Remv cataract extracap,insert lens 11/29/2012 CATARACT EXTRACTION, EXTRACAPSULAR, W/ LENS INSERTION performed by Erasmo Bajwa MD at [facility] OSC ??? Cataract removal 07/18/12 OD [...] discussed with patient. Plan discussed with attending. [facility] [place] Assessment: documented in this [...] mg documented in this encounter Care Teams Distributor Cleaner Relationship Specialty Start Date End Date Ej Duran MD [address] [place] [address] PCP - General 10/28/11 06/04/18 documented as of this encounter
--- OUTSIDE RECORDS SUMMARY | 2024-02-24 17:02 | XMS_ITS | Encounter Summary ---
Author Organization [facility] [place] [address] Care Team Providers Care Marine Service Station Attendant Name Role Phone Ej Duran MD Primary Care Provider [phone] Encounter Details Date Type Department Care Team (Late st Contact Info) Description 01/08/2013 7:30 AM EDT - 01/08/2013 8:58 AM EDT Surgery [place] [address] Ruthann Beckett MD [facility] DR [place] [address] REPAIR COMPLEX RETINAL DETACH W/VITRECTOMY, MEMBRANE PEELING, [...] all eye drops to tomorrow's appointment. Call [phone] for all questions concerns. Left side down [...] Beckett MD - 01/08/2013 9:38 AM EDT [facility] Operative Note Patient Name: Maurice Rudolph : [id number] MR#: [id number] Case Date: 01/08/2013 Surgeon: Surgeon(s) and Role: * Ruthann Beckett MD - Primary * Lesli Vo PA - Physician Product Development Actuary 8:10-9:[id number]=1h 28m SURGICAL STAFF/ASSISTANTS RUTHANN Giordano. Hayley [...] capsulectomy with lysis of iris adhesions with islam of normal configuration of pupil. OPERATIVE INDICATIONS: [...] and fibrosis was easily dissected with good islam of pupil margin contour. This now provided [...] Operative Note Patient Name: Maurice Rudolph : [id number] MR#: [id number] Case Date: 01/08/2013 Surgeon: Surgeon(s) and Role: * Ruthann Beckett MD - Primary * Lesli Vo PA - Physician Product Development Actuary Preoperative diagnosis: RETINAL DETACHMENT Postoperative diagnosis: RETINAL [...] Glucose, POC 111 60 - 199 mg/dL [facility] Comment: Supplemental ranges: <110 mg/dL before meals <200 mg/dL all other times of the day Blood specimen (specimen) 01/08/2013 9:58 AM EDT 01/08/2013 9:58 AM EDT Ruthann Beckett MD POINT OF CARE T EST ORDERABLES Performing Organization Address [facility] Co de Phone Number [facility] * POCT Glucose (01/08/2013 7:19 AM EDT) Glucose, POC 119 60 - 199 mg/dL [facility] Comment: Supplemental ranges: <110 mg/dL before meals <200 mg/dL all other times of the day Blood specimen (specimen) 01/08/2013 7:19 AM EDT 01/08/2013 7:19 AM EDT Ruthann Beckett MD POINT OF CARE T EST ORDERABLES Performing Organization Address [facility] Co de Phone Number [facility] documented in this encounter Visit Diagnoses [...] Given 01/08/2013 7:17 AM EDT 1 drop cmjewyub-ebxbayeau-mzyofrphslozk (DEXACINE) 3.5-10,000-0.1 mg-unit/g-% ophthalmic ointment ONCE PRN, [...] (Given - Provid er: Ruthann Beckett MD) kpvpqsfi-sbzhwpupi-vnritvjqcgud e (DEXACINE) 3.5-10,000-0.1 mg-unit/g-% ophthalmic ointment (CANCELED) [...] RN) documented in this encounter Care Teams Marine Service Station Attendant Relationship Specialty Start Date End Date Ej Duran MD [address] [place] [address] PCP - General 10/28/11 06/04/18 documented as of this encounter
--- OUTSIDE RECORDS SUMMARY | 2024-02-24 17:02 | XMS_ITS | Encounter Summary ---
Author Organization [facility] [place] [address] Care Team Providers Care Sweet Potato Disintegrator Name Role Phone Ej Duran MD Primary Care Provider [phone] Reason for Visit * Reason Comments PDR Patient presents for followup evaluation for severe proliferative diabetic retinopathy in each eye. CBC Encounter Details Date Type Department Care Team (Late st Contact Info) Description 12/05/2012 2:45 PM EDT [place] [address] Matteo Diane MD [facility] [place] [address] Acute angle-closure glaucoma of right eye (Primary [...] uncontrolled documented in this encounter Care Teams Sweet Potato Disintegrator Relationship Specialty Start Date End Date Ej Duran MD [address] [place] [address] PCP - General 10/28/11 06/04/18 documented as of this encounter
--- OUTSIDE RECORDS SUMMARY | 2024-02-24 17:02 | XMS_ITS | Encounter Summary ---
Author Organization [facility] [place] [address] Care Team Providers Care Poultry Hanger Name Role Phone Ej Duran MD Primary Care Provider [phone] Encounter Details Date Type Department Care Team (Late st Contact Info) Description 07/18/2012 7:23 AM EDT Anesthesia Event [place] [address] Maria Isabel Benton MD [facility] DR [place] [address] Sharla Scanlon CRNA [facility] [place] [address] Anesthesia Record Procedure Summary Procedure Name Responsible [...] performed by Matteo Diane MD at [facility] MAIN OR ??? Peripheral iridotomy 04/06/2012 [...] to blood products. Plan discussed with [MEDICAL SCIENTIFIC OFFICER Misc. Assessment: documented in this encounter Miscellaneous Notes * Addendum Note - Maddy Cortez - 07/19/2012 10:35 AM EDT Addendum created 07/19/12 1035 by Maddy Cortez Modules edited:Anesthesia Events, Anesthesia Responsible Staff, SmartForms SmartFormsVN Section for SmartForms 266 documented in this encounter Plan of Treatment Not on file documented as of this encounter Visit Diagnoses Not on filedocumented in this encounter Care Teams Poultry Hanger Relationship Specialty Start Date End Date Ej Duran MD [address] [place] [address] PCP - General 10/28/11 06/04/18 documented as of this encounter
--- OUTSIDE RECORDS SUMMARY | 2024-02-24 17:02 | XMS_ITS | Encounter Summary ---
Author Organization [facility] [place] [address] Care Team Providers Care Public Health Doctor Name Role Phone Ej Duran MD Primary Care Provider [phone] Encounter Details Date Type Department Care Team (Latest Contact Info) Description 11/29/2012 10:18 AM EDT - 11/29/2012 12:58 PM EDT Hospital Encounter [place] [address] Gabe Bajwa MD [facility] [place] [address] Cataract (Primary Dx) Discharge Disposition: Home Social [...] or additional concerns or questions please call: [phone] 8am to5pm. After 5pm, please call [phone] and ask for opthalmology MD programmable logic controller assembler. documented in this encounter Medications at Time [...] operative team. Monitors were placed by the powerhouse laborer. Topical anaesthetic was placed in the left [...] emulsified with the phacoemulsification handpiece in a cdvluz-ndf-cioqawe fashion. Residual cortical material was removed with the automated irrigation/aspiration unit. The posterior capsule was polished. The capsular bag was inflated with viscoelastic. An Olayinka Model [id number] posterior chamber lens with a 6mm acrylic optic was inspected and found to be without defects, placed in the [place] II rheostat assembler cartridge, and injected into the capsular bag [...] RN) documented in this encounter Care Teams Public Health Doctor Relationship Specialty Start Date End Date Ej Duran MD [address] [place] [address] PCP - General 10/28/11 06/04/18 documented as of this encounter
--- OUTSIDE RECORDS SUMMARY | 2024-02-24 17:02 | XMS_ITS | Encounter Summary ---
Author Organization [facility] [place] [address] Care Team Providers Care Cad Application Support Specialist Name Role Phone Ej Duran MD Primary Care Provider [phone] Reason for Visit * Reason Comments Blurred Vision Patient presents for postoperative evaluation after complex vitrectomy right eye. Indicates his vision in the right eye is stable but perhaps worse at night. Vision in the left eye is also becoming worse. Matteo Diane M.D. Encounter Details Date Type Department Care Team (Late [facility]) Description 10/31/2012 12:45 PM EDT [place] [address] Matteo Diane MD [facility] DR [place]TH[place] [address] Proliferative diabetic retinopathy, both eyes. Severe and [...] EDT November 01, 2012 Erasmo Bajwa M.D. [address] [place] [address], [place] [address] Dear Erasmo, I would like to introduce [...] cataract documented in this encounter Care Teams Cad Application Support Specialist Relationship Specialty Start Date End Date Ej Duran MD [address] [place] [address] PCP - General 10/28/11 06/04/18 documented as of this encounter
--- OUTSIDE RECORDS SUMMARY | 2024-02-24 17:02 | XMS_ITS | Encounter Summary ---
Author Organization [facility] [place] [address] Care Team Providers Care Waterworks Employee Name Role Phone Ej Duran MD Primary Care Provider [phone] Reason for Visit * Reason Comments Post Op 1 POD IOL:OD ( 3) Encounter Details Date Type Department Care Team (Late st Contact Info) Description 07/19/2012 10:45 AM EDT Office [place] [address] Phillip Schwartz MD [facility] [place] [address] Cataract. Dense with synechiae. Right eye. (Primary [...] cataract documented in this encounter Care Teams Waterworks Employee Relationship Specialty Start Date End Date Ej Duran MD [address] [place] [address] PCP - General 10/28/11 06/04/18 documented as of this encounter
--- OUTSIDE RECORDS SUMMARY | 2024-02-24 17:02 | XMS_ITS | Encounter Summary ---
Author Organization [facility] [place] [address] Care Team Providers Care Zoo Caretaker Name Role Phone Ej Duran MD Primary Care Provider [phone] Reason for Visit * Reason Comments Post Op The patient percents for followup evaluation after complex vitrectomy and history of angle-closure. ESTRELLA Hardy Post Op shared pt with dr. wil lawson Encounter Details Date Type Department Care Team (Late st Contact Info) Description 06/21/2012 10:15 AM EST [place] [address] Matteo Diane MD [facility] [place] [address] Acute angle-closure glaucoma of right eye. Patency [...] June 21, 2012 RE: Maurice Rudolph A#: [id number] Dear Sergio; I would like to request [...] cataract documented in this encounter Care Teams Zoo Caretaker Relationship Specialty Start Date End Date Ej Duran MD [address] [place] [address] PCP - General 10/28/11 06/04/18 documented as of this encounter
--- OUTSIDE RECORDS SUMMARY | 2024-02-24 17:02 | XMS_ITS | Encounter Summary ---
Author Organization [facility] [place] [address] Care Team Providers Care Oracle Consultant Name Role Phone Ej Duran MD Primary Care Provider [phone] Encounter Details Date Type Department Care Team (Late st Contact Info) Description 01/08/2013 6:08 AM EDT - 01/08/2013 11:34 AM EDT Hospital Encounter [place] [address] [facility] [place] [address] Discharge Disposition: Home Social History Tobacco Use [...] all eye drops to tomorrow's appointment. Call [phone] for all questions concerns. Left side down [...] Beckett MD - 01/08/2013 9:38 AM EDT [facility] [place] Operative Note Patient Name: Maurice Rudolph : [id number] MR#: [id number] Case Date: 01/08/2013 Surgeon: Surgeon(s) and Role: * Ruthann Beckett MD - Primary * Lesli Vo PA - Physician Journeyman Patternmaker 8:10-9:38=1h 28m SURGICAL STAFF/ASSISTANTS RUTHANN Giordano. Neo [...] capsulectomy with lysis of iris adhesions with protestant of normal configuration of pupil. OPERATIVE INDICATIONS: [...] and fibrosis was easily dissected with good protestant of pupil margin contour. This now provided [...] Operative Note Patient Name: Maurice Rudolph : [id number] MR#: [id number] Case Date: 01/08/2013 Surgeon: Surgeon(s) and Role: * Ruthann Beckett MD - Primary * Lesli Vo PA - Physician Journeyman Patternmaker Preoperative diagnosis: RETINAL DETACHMENT Postoperative diagnosis: RETINAL [...] Glucose, POC 111 60 - 199 mg/dL [facility] Comment: Supplemental ranges: <110 mg/dL before meals <200 mg/dL all other times of the day Blood specimen (specimen) 01/08/2013 9:58 AM EDT 01/08/2013 9:58 AM EDT Ruthann Beckett MD POINT OF CARE T EST ORDERABLES Performing Organization Address [facility] Co de Phone Number [facility] * POCT Glucose (01/08/2013 7:19 AM EDT) Glucose, POC 119 60 - 199 mg/dL [facility] Comment: Supplemental ranges: <110 mg/dL before meals <200 mg/dL all other times of the day Blood specimen (specimen) 01/08/2013 7:19 AM EDT 01/08/2013 7:19 AM EDT Ruthann Beckett MD POINT OF CARE T EST ORDERABLES Performing Organization Address [facility] Co de Phone Number [facility] documented in this encounter Visit Diagnoses Not [...] (Given - Provid er: Ruthann Beckett MD) sfbglzcq-ozrwcrzai-chsbulvtuvkt e (DEXACINE) 3.5-10,000-0.1 mg-unit/g-% ophthalmic ointment (CANCELED) [...] RN) documented in this encounter Care Teams Oracle Consultant Relationship Specialty Start Date End Date Ej Duran MD [address] [place] [address] PCP - General 10/28/11 06/04/18 documented as of this encounter
--- OUTSIDE RECORDS SUMMARY | 2024-02-24 17:02 | XMS_ITS | Encounter Summary ---
Author Organization [facility] [place] [address] Care Team Providers Care Compliance Engineer Products Name Role Phone Ej Duran MD Primary Care Provider [phone] Reason for Visit * Reason Comments Post Op Patient is postop da y one status post repair of tractional detachment and removal of retained lens material. ESTRELLA Hardy Encounter Details Date Type Department Care Team (Late st Contact Info) Description 08/01/2012 10:00 AM EDT Office [place] [address] Matteo Diane MD [facility] [place] [address] Retinal detachment, tractional, right eye. Postoperative day [...] hypertension documented in this encounter Care Teams Compliance Engineer Products Relationship Specialty Start Date End Date Ej Duran MD [address] [place] [address] PCP - General 10/28/11 06/04/18 documented as of this encounter
--- OUTSIDE RECORDS SUMMARY | 2024-02-24 17:02 | XMS_ITS | Encounter Summary ---
Author Organization [facility] [place] [address] Care Team Providers Care Branch Operations Specialist Name Role Phone Ej Duran MD Primary Care Provider [phone] Encounter Details Date Type Department Care Team (Latest Contact Info) Description 07/18/2012 6:43 AM EDT - 07/18/2012 8:56 AM EDT Hospital Encounter [place] [address] Lisette Schwartz MD [facility] [place] [address] Discharge Disposition: Home Social History Tobacco Use [...] PM EDT * Op Note - Lisette Scwhartz MD - 07/18/2012 2:59 PM EDT [facility] [place] Operative Note Patient Name: Maurice Rudolph : [id number] MR#: [id number] Case Date: 07/18/2012 Surgeon: Surgeon(s) and Role: * Lisette Schwartz MD - Primary COMPUTER AIDED DRAFTER: Staff. PREOPERATIVE DIAGNOSIS: Mature cataract, right eye. [...] Operative Note Patient Name: Maurice Rudolph : [id number] MR#: [id number] Case Date: 07/18/2012 Surgeon: Surgeon(s) and Role: [...] Day of Surgery (Day of Procedure) 0715 ([facility] ider: Francoise Ang RN) documented in this encounter Care Teams Branch Operations Specialist Relationship Specialty Start Date End Date Ej Duran MD [address] [place] [address] PCP - General 10/28/11 06/04/18 documented as of this encounter
--- OUTSIDE RECORDS SUMMARY | 2024-02-24 17:02 | XMS_ITS | Encounter Summary ---
Author Organization [facility] [place] [place] [address] Care Team Providers Care Horticultural Therapist Name Role Phone Ej Duran MD Primary Care Provider [phone] Reason for Visit * Reason Comments Glaucoma 2 wk ck Encounter Details Date Type Department Care Team (Late st Contact Info) Description 06/26/2012 3:45 PM EST Office [place] [address] Lisette Schwartz MD [facility] [place] [address] Cataract. Dense with synechiae. Right eye. (Primary [...] glaucoma documented in this encounter Care Teams Horticultural Therapist Relationship Specialty Start Date End Date Ej Duran MD [address] [place] [address] PCP - General 10/28/11 06/04/18 documented as of this encounter
--- OUTSIDE RECORDS SUMMARY | 2024-02-24 17:02 | XMS_ITS | Encounter Summary ---
Author Organization [facility] [place] [address] Care Team Providers Care Cellar Worker Name Role Phone Ej Duran MD Primary Care Provider [phone] Reason for Visit * Reason Comments Post Op Encounter Details Date Type Department Care Team (Late st Contact Info) Description 08/22/2012 3:45 PM EDT Office [place] [address] Matteo Diane MD [facility] [address] [place] [address] Acute angle-closure glaucoma of right eye (Primary [...] Hypermetropia documented in this encounter Care Teams Cellar Worker Relationship Specialty Start Date End Date Ej Duran MD [address] [place] [address] PCP - General 10/28/11 06/04/18 documented as of this encounter
--- OUTSIDE RECORDS SUMMARY | 2024-02-24 17:02 | XMS_ITS | Encounter Summary ---
Author Organization [facility] [place] [address] Care Team Providers Care Marketing Operations Analyst Name Role Phone Ej Duran MD Primary Care Provider [phone] Reason for Visit * Reason Comments Eye Pain The patient presents for followup evaluation regarding ocular pain in the right eye. ESTRELLA Hardy Encounter Details Date Type Department Care Team (Late st Contact Info) Description 02/27/2013 2:00 PM EDT [place] [address] Matteo Diane MD [facility] [place] [address] Acute angle-closure glaucoma of right eye. History [...] uncontrolled documented in this encounter Care Teams Marketing Operations Analyst Relationship Specialty Start Date End Date Ej Duran MD [address] [place] [address] PCP - General 10/28/11 06/04/18 documented as of this encounter
--- OUTSIDE RECORDS SUMMARY | 2024-02-24 17:02 | XMS_ITS | Encounter Summary ---
Author Organization [facility] [place] [address] Care Team Providers Care Juice Tester Name Role Phone Ej Duran MD Primary Care Provider [phone] Reason for Visit * Reason Comments Post Op 11 day P/O repair of tractional detachment and removal of retained lens material OD 07/31/12 Encounter Details Date Type Department Care Team (Late st Contact Info) Description 08/10/2012 9:30 AM EDT [place] [address] Matteo Diane MD [facility] [place] [address] Hyperopia (Primary Dx); Vitreous hemorrhage, right eye; [...] glaucoma documented in this encounter Care Teams Juice Tester Relationship Specialty Start Date End Date Ej Duran MD [address] [place] [address] PCP - General 10/28/11 06/04/18 documented as of this encounter
--- OUTSIDE RECORDS SUMMARY | 2024-02-24 17:02 | XMS_ITS | Encounter Summary ---
Author Organization [facility] [place] [address] Care Team Providers Care Global Mobility Specialist Name Role Phone Ej Duran MD Primary Care Provider [phone] Encounter Details Date Type Department Care Team (Late st Contact Info) Description 07/31/2012 6:07 AM EDT - 07/31/2012 9:35 AM EDT Hospital Encounter [place] [address] Ruthann Beckett MD [facility] [place] [address] Discharge Disposition: Home Social History Tobacco Use [...] all eye drops to tomorrow's appointment. Call [phone] for all questions concerns. Right side down [...] Beckett MD - 07/31/2012 9:00 AM EDT [facility] Operative Note Patient Name: Maurice Rudolph : [id number] MR#: [id number] Case Date: 07/31/2012 Surgeon: Surgeon(s) and Role: [...] at this time. Please note also the wayxfjvl-tr-ffgqfafy time was from 7:55 a.m. exactly until 8:55 a.m. The patient will return here postoperative day #1. He is to lie on the right side. Airway safety and venous thrombosis prevention measures will be reviewed again in the postoperative setting. He is to call the eye physician systems integration engineer the overnight period if there are any [...] Operative Note Patient Name: Maurice Rudolph : [id number] MR#: [id number] Case Date: 07/31/2012 Surgeon: Surgeon(s) and Role: [...] * POCT Glucose (07/31/2012 9:09 AM EDT) [facility] Glucose, POC 181 60 - 199 mg/dL [facility] Comment: Supplemental ranges: <110 mg/dL [...] CARE T EST ORDERABLES Performing Organization Address City/[facility] Co de Phone Number BERHANE CASTRO documented [...] Beckett MD - Comment: mixed with bupivacaine) bpyxqvcm-dwjzlabam-dwzzaybbxfbg e (DEXACINE) 3.5-10,000-0.1 mg-unit/g-% ophthalmic ointment (CANCELED) [...] cefazolin) documented in this encounter Care Teams Global Mobility Specialist Relationship Specialty Start Date End Date Ej Duran MD [address] [place] [address] PCP - General 10/28/11 06/04/18 documented as of this encounter
--- OUTSIDE RECORDS SUMMARY | 2024-02-24 17:02 | XMS_ITS | Encounter Summary ---
Author Organization [facility] [place] [address] Care Team Providers Care Hedis Abstractor Name Role Phone Ej Duran MD Primary Care Provider [phone] Reason for Visit * Reason Comments Post Op Pt here for POD #7 I OL:OD (07/18/12) with Dr Schwartz. Encounter Details Date Type Department Care Team (Late st Contact Info) Description 07/25/2012 12:45 PM EDT Office [place] [address] Phillip Schwartz MD [facility] [address] Cataract. Dense with synechiae. Right eye. (Primary [...] cataract documented in this encounter Care Teams Hedis Abstractor Relationship Specialty Start Date End Date Ej Duran MD [address] [place] [address] PCP - General 10/28/11 06/04/18 documented as of this encounter
--- OUTSIDE RECORDS SUMMARY | 2024-02-24 17:02 | XMS_ITS | Encounter Summary ---
Author Organization [facility] [place] [address] Care Team Providers Care Crown Assembly Machine Set Up Mechanic Name Role Phone Ej Duran MD Primary Care Provider [phone] Reason for Visit * Reason Comments Post Op Patient presents for postoperative evaluation after diabetic vitrectomy. ESTRELLA Hardy Post Op shared pt with dr. wil lawson Encounter Details Date Type Department Care Team (Late st Contact Info) Description 07/25/2012 2:00 PM EDT Office [place] [address] Matteo Diane MD [facility] DR [place] [address] Cataract. Dense with synechiae. Right eye. Status [...] as of this encounter Progress Notes * Mateto Diane MD - 07/30/2012 9:39 PM EDT [...] uncontrolled documented in this encounter Care Teams Crown Assembly Machine Set Up Mechanic Relationship Specialty Start Date End Date Ej Duran MD [address] [place] [address] PCP - General 10/28/11 06/04/18 documented as of this encounter
--- OUTSIDE RECORDS SUMMARY | 2024-02-24 17:02 | XMS_ITS | Encounter Summary ---
Author Organization [facility] [place] [address] Care Team Providers Care Building Construction Teacher Name Role Phone Ej Duran MD Primary Care Provider [phone] Encounter Details Date Type Department Care Team (Late st Contact Info) Description 11/29/2012 12:00 PM EDT - 11/29/2012 12:40 PM EDT Surgery [place] [address] Gabe Bajwa MD [facility] [place] [address] CATARACT EXTRACTION, EXTRACAPSULAR, W/ LENS INSERTION (WRVU [...] or additional concerns or questions please call: [phone] 8am to5pm. After 5pm, please call [phone] and ask for opthalmology MD nutrition teacher. documented in this encounter Medications at Time [...] operative team. Monitors were placed by the ornamenter. Topical anaesthetic was placed in the left [...] emulsified with the phacoemulsification handpiece in a ofuarx-jam-fsonhfg fashion. Residual cortical material was removed with the automated irrigation/aspiration unit. The posterior capsule was polished. The capsular bag was inflated with viscoelastic. An Olayinka Model [id number] posterior chamber lens with a 6mm acrylic optic was inspected and found to be without defects, placed in the [place] II admittance attendant cartridge, and injected into the capsular bag [...] RN) documented in this encounter Care Teams Building Construction Teacher Relationship Specialty Start Date End Date Ej Duran MD [address] [place] [address] PCP - General 10/28/11 06/04/18 documented as of this encounter
--- OUTSIDE RECORDS SUMMARY | 2024-02-24 17:02 | XMS_ITS | Encounter Summary ---
Author Organization [facility] [place] [place] [address] Care Team Providers Care Tobacco Sizer Name Role Phone Ej Duran MD Primary Care Provider [phone] Encounter Details Date Type Department Care Team (Late st Contact Info) Description 07/18/2012 7:30 AM EDT - 07/18/2012 8:30 AM EDT Surgery Outpatient [place] [address] Lisette Schwartz MD [facility] [place] [address] CATARACT EXTRACTION, EXTRACAPSULAR, WITH LENS INSERTION, COMPLEX [...] Schwartz MD - 07/18/2012 2:59 PM EDT [facility] Operative Note Patient Name: Maurice Rudolph : [id number] MR#: [id number] Case Date: 07/18/2012 Surgeon: Surgeon(s) and Role: * Lisette Schwartz MD - Primary DRESS FITTER: Staff. PREOPERATIVE DIAGNOSIS: Mature cataract, right eye. [...] Operative Note Patient Name: Maurice Rudolph : [id number] MR#: [id number] Case Date: 07/18/2012 Surgeon: Surgeon(s) and Role: [...] Day of Surgery (Day of Procedure) 0715 ([facility] ider: Francoise Ang RN) documented in this encounter Care Teams Tobacco Sizer Relationship Specialty Start Date End Date Ej Duran MD [address] [place] [address] PCP - General 10/28/11 06/04/18 documented as of this encounter
--- OUTSIDE RECORDS SUMMARY | 2024-02-24 17:02 | XMS_ITS | Encounter Summary ---
Author Organization [facility] [place] [address] Care Team Providers Care Administrative Office Clerk Name Role Phone Ej Duran MD Primary Care Provider [phone] Reason for Visit * Reason Comments Blurred Vision The patient presents for postoperative evaluation of the right eye. ESTRELLA Hardy Encounter Details Date Type Department Care Team (Late st Contact Info) Description 10/10/2012 1:00 PM EDT Office [place] [address] Matteo Diane MD [facility] DR [place]TH[place] [address] Vitreous hemorrhage, right eye (Primary Dx); Proliferative [...] glaucoma documented in this encounter Care Teams Administrative Office Clerk Relationship Specialty Start Date End Date Ej Duran MD [address] [place] [address] PCP - General 10/28/11 06/04/18 documented as of this encounter
--- OUTSIDE RECORDS SUMMARY | 2024-02-24 17:02 | XMS_ITS | Encounter Summary ---
Author Organization [facility] [place] [address] Care Team Providers Care Straight Truck Driver Name Role Phone Ej Duran MD Primary Care Provider [phone] Encounter Details Date Type Department Care Team (Late st Contact Info) Description 07/31/2012 7:26 AM EDT Anesthesia Event [place] [address] Giovanni Sykes MD [facility] [place] [address] Carmelina Carnes CRNA [facility] [place] [address] Anesthesia Record Procedure Summary Procedure Name Responsible [...] Era Braden RN 12/28/21 1715 by Morgan Wogn Incision 07/18/12; eye; 12/28/21 (LDA cleanup utility [...] PEELING performed by Matteo Diane MD at [facility] MAIN OR ??? Peripheral iridotomy [...] COMPLEX performed by Phillip Schwartz MD at [facility] OSC ??? Vitrectomy, w/ membrane [...] risks discussed with patient. Plan discussed with REGIONAL BRANCH MANAGER. Keshawn. Assessment: documented in this encounter Plan [...] mL documented in this encounter Care Teams Straight Truck Driver Relationship Specialty Start Date End Date Ej Duran MD [address] [place] [address] PCP - General 10/28/11 06/04/18 documented as of this encounter
--- OUTSIDE RECORDS SUMMARY | 2024-02-24 17:03 | XMS_ITS | Encounter Summary ---
Author Organization [facility] Address [address] [place] [address] Care Team Providers Care Staking Press Operator Name Role Phone Jarad Iglesias DNP Primary Care Provider [phone] Reason for Referral * (Routine/Next Available) - Receiving Office to Obtain Authorization Specialty Diagnoses / Procedures Referred By Puneet hallman Referred To Contact Procedures CT OUTSIDE IMAGES RIGHT LOWER EXTREMITY Unknown, ProviderMD Referral ID Status Reason Start Date Expiration Date Visits Requested Visits Authorized [id number] Receiving Office to Obtain Authorization 12/28/2023 1 1 Reason for Visit * (Routine/Next Available) - Receiving Office to Obtain Authorization Specialty Diagnoses / Procedures Referred By Puneet hallman Referred To Contact Procedures CT OUTSIDE IMAGES RIGHT LOWER EXTREMITY Unknown, ProviderMD Referral ID Status Reason Start Date Expiration Date Visits Requested Visits Authorized [id number] Receiving Office to Obtain Authorization 12/28/2023 1 1 Encounter Details Date Type Department Care Team (Latest Contact Info) Description 12/28/2023 19:36 EDT - 12/28/2023 23:59 EDT Hospital Encounter [facility] [place] Discharge Disposition: [...] 1 Tab by mouth at bedtime. 10/14/2018 mv,Ie-GZ-N2-TZ-4-txw-epa -fish (PRORENAL QD) 400-500 mcg-unit capsule Take [...] on filedocumented in this encounter Care Teams Staking Press Operator Relationship Specialty Start Date End Date Jarad Iglesias, [facility] [address] [place] [address] [place] [address] PCP - General 10/12/18 documented as of this encounter
--- OUTSIDE RECORDS SUMMARY | 2024-02-24 17:03 | XMS_ITS | Encounter Summary ---
Author Organization [facility] [place] [address] Care Team Providers Care Leather Splitter Name Role Phone Ej Duran MD Primary Care Provider [phone] Reason for Visit * Reason Comments Post Op 1 day chk, s/p Vit/g as OD. No pain now. Level V/X pain overnight. Control. Encounter Details Date Type Department Care Team (Late st Contact Info) Description 04/04/2012 9:15 AM EST Office [place] [address] Matteo Diane MD [facility] [place] [address] Proliferative diabetic retinopathy, both eyes. Postoperative day [...] glaucoma documented in this encounter Care Teams Leather Splitter Relationship Specialty Start Date End Date Ej Duran MD [address] [place] [address] PCP - General 10/28/11 06/04/18 documented as of this encounter
--- OUTSIDE RECORDS SUMMARY | 2024-02-24 17:03 | XMS_ITS | Encounter Summary ---
[place] [address] Care Team Providers Care Media Operator Name Role Phone Ej Duran MD Primary Care Provider Reason for Visit * Reason Comments Procedure Here for urgent LPI Encounter Details Date Type Department Care Team (Latest Contact Info) Description 04/06/2012 3:15 PM EST Procedure [place] [address] Phillip Schwartz MD [facility] [place] [address] Acute angle-closure glaucoma of right eye (Primary [...] 2:47 PM EST See PN Procedure Note Phililp Schwartz MD - 04/06/2012 See PN Phillip Schwartz MD OPHTHALMOLOGY [facility] ORDERABLES documented in this encounter Visit Diagnoses Diagnosis Acute angle-closure glaucoma of right eye- Primary Acute angle-closure glaucoma documented in this encounter Care Teams Media Operator Relationship Specialty Start Date End Date Ej Duran MD [address] [place] [address] PCP - General 10/28/11 06/04/18 documented as of this encounter
--- OUTSIDE RECORDS SUMMARY | 2024-02-24 17:03 | XMS_ITS | Encounter Summary ---
Author Organization [facility] [place] [place] [address] Care Team Providers Care Counter Clerk Tractor Parts Name Role Phone Ej Duran MD Primary Care Provider [phone] Reason for Visit * Reason Onset Date Comments Eye Problem 12/03/2011 Few months ago p atient had OS laser treatment. Having dull pain but can't see. Like looking through a thick fog. Can only make out shapes. Encounter Details Date Type Department Care Team ([facility] Contact Info) Description 12/03/2011 [place] [address] Matteo Diane MD [facility] [place] [address] Eye Problem (Few months ago patient had [...] on filedocumented in this encounter Care Teams Counter Clerk Tractor Parts Relationship Specialty Start Date End Date Ej Duran MD [address] [place] [address] PCP - General 10/28/11 06/04/18 documented as of this encounter
--- OUTSIDE RECORDS SUMMARY | 2024-02-24 17:03 | XMS_ITS | Encounter Summary ---
Author Organization [facility]ve [facility] [place] [address] Care Team Providers Care Traffic Officer Name Role Phone Ej Duran MD Primary Care Provider [phone] Reason for Visit * Reason Comments Post Op 2 POD:LPI:OD for Acu te Angle Closure Encounter Details Date Type Department Care Team (Late st Contact Info) Description 04/08/2012 11:30 AM EST Office Visit [place] [address] Phillip cShwartz MD [facility] [place] [address] Acute angle-closure glaucoma of right eye Discharge [...] glaucoma documented in this encounter Care Teams Traffic Officer Relationship Specialty Start Date End Date Ej Duran MD [address] [place] [address] PCP - General 10/28/11 06/04/18 documented as of this encounter
--- OUTSIDE RECORDS SUMMARY | 2024-02-24 17:03 | XMS_ITS | Encounter Summary ---
Author Organization [facility] [place] [address] Care Team Providers Care Beef Pluck Trimmer Name Role Phone Ej Duran MD Primary Care Provider [phone] Reason for Visit * Reason Comments Post Op s/p 1 day retinal de tachment repair with vitrectomy and membrane peel OD Encounter Details Date Type Department Care Team (Late st Contact Info) Description 04/05/2012 10:45 AM EST Office [place] [address] Matteo Diane MD [facility] DR [place] [address] Proliferative diabetic retinopathy, both eyes; Diabetes mellitus; [...] glaucoma documented in this encounter Care Teams Beef Pluck Trimmer Relationship Specialty Start Date End Date Ej Duran MD [address] [place] [address] PCP - General 10/28/11 06/04/18 documented as of this encounter
--- OUTSIDE RECORDS SUMMARY | 2024-02-24 17:03 | XMS_ITS | Encounter Summary ---
Author [place] [address] Care Team Providers Care Warrant Clerk Name Role Phone Ej Duran MD Primary Care Provider [phone] Reason for Visit * Reason Comments Eye Problem increased IOP OD Encounter Details Date Type Department Care Team (Late st Contact Info) Description 04/06/2012 1:30 PM EST Office [place] [address] Phillip Schwartz MD [facility] [place] [address] Acute angle-closure glaucoma of right eye (Primary [...] glaucoma documented in this encounter Care Teams Warrant Clerk Relationship Specialty Start Date End Date Ej Duran MD [address] [place] [address] PCP - General 10/28/11 06/04/18 documented as of this encounter
--- OUTSIDE RECORDS SUMMARY | 2024-02-24 17:03 | XMS_ITS | Encounter Summary ---
[facility] Organization [facility] [place] [address] Care Team Providers Care Acupressure Therapist Name Role Phone Ej Duran MD Primary Care Provider [phone] Encounter Details Date Type Department Care Team (Late st Contact Info) Description 04/03/2012 9:33 AM EST Anesthesia [place] [address] Marquise Garcia MD [facility] [address] [place] [address] Anesthesia Record Procedure Summary Procedure Name Responsible [...] risks discussed with patient. Plan discussed with FRONT DESK MANAGER. [facility] Assessment: documented in this encounter Miscellaneous Notes * Addendum Note - Adilene Kelsey - 04/04/2012 10:34 AM EST Addendum created 04/04/12 1034 by Adilene Kelsey Modules edited:Anesthesia Events, Anesthesia Responsible Staff, SmartForms SmartFormsVN Section for SmartForms 266 documented in this encounter Plan of Treatment Not on file documented as of this encounter Visit Diagnoses Not on filedocumented in this encounter Care Teams Acupressure Therapist Relationship Specialty Start Date End Date Ej Duran MD [address] [place] [address] PCP - General 10/28/11 06/04/18 documented as of this encounter
--- OUTSIDE RECORDS SUMMARY | 2024-02-24 17:03 | XMS_ITS | Encounter Summary ---
Author Organization [facility] [place] [address] Care Team Providers Care Implant Coordinator Name Role Phone Edi Petros SAXENA Primary Care Provider [phone] Reason for Visit * Reason Comments Blurred Vision pt did not need Lase r today-see prog. notes. Vision getting worse OD. OS better after initail laser OS CBC Encounter Details Date Type Department Care Team (Late st Contact Info) Description 07/27/2011 9:15 AM EDT Procedure [place] [address] Ruthann Beckett MD [facility] [place] [address] Diabetic retinopathy (Primary Dx); Proliferative diabetic retinopathy, [...] 9:15 AM EDT >> RUTHANN BECKETT MD [facility] Jul 27, 2011 8:16 PM OD getting [...] disturbances documented in this encounter Care Teams Implant Coordinator Relationship Specialty Start Date End Date Petros Daley DO [address] [place] [address] PCP - General 06/15/11 10/27/11 documented as of this encounter
--- OUTSIDE RECORDS SUMMARY | 2024-02-24 17:03 | XMS_ITS | Encounter Summary ---
Author Organization [facility] Address [address] [place] [address] Care Team Providers Care Personal Banking Officer Name Role Phone Sanjay AriannaJarad barrientos Maeve DNP Primary Care Provider [phone] Encounter Details Date Type Department Care Team (Latest Contact Info) Description 01/22/2019 12:15 EDT - 01/22/2019 23:59 EDT Hospital Encounter [address] [address] Unknown, Provider, Discharge Disposition: Home or Self [...] 1 Tab by mouth at bedtime. 10/14/2018 mv,Tc-IW-U0-FE-7-wid-epa -fish (PRORENAL QD) 400-500 mcg-unit capsule Take [...] Code Departure Means Destination Home or Self Snf documented in this encounter Plan of Treatment Not on file documented as of this encounter Visit Diagnoses Not on filedocumented in this encounter Care Teams Personal Banking Officer Relationship Specialty Start Date End Date Jarad Iglesias, DANIK[address] [place] [address] PCP - General 10/12/18 documented as of this encounter
--- OUTSIDE RECORDS SUMMARY | 2024-02-24 17:03 | XMS_ITS | Encounter Summary ---
[place] [address] Care Team Providers Care Hris Administrator Name Role Phone Petros Daley DO Primary Care Provider [phone] Encounter Details Date Type Department Care Team (Late st Contact Info) Description 07/29/2011 Orders [place] [address] Matteo Diane MD [facility] [place] [address] Vitreous hemorrhage, right eye (Primary Dx) Social [...] hemorrhage documented in this encounter Care Teams Hris Administrator Relationship Specialty Start Date End Date Petros Daley DO [address] [place] [address] PCP - General 06/15/11 10/27/11 documented as of this encounter
--- OUTSIDE RECORDS SUMMARY | 2024-02-24 17:03 | XMS_ITS | Encounter Summary ---
[place] [address] Care Team Providers Care Open Hearth Furnace Operator Helper Name Role Phone Ej Duran MD Primary Care Provider [phone] Reason for Visit * Reason Comments PDR here for 2 wk kay o n PDR, here for possible PRP Encounter Details Date Type Department Care Team (Late st Contact Info) Description 12/20/2011 3:45 PM EDT Procedure visit [place] [address] Miriam Hancock MD PDR (proliferative diabetic retinopathy) (Primary Dx) Discharge [...] 12/20/2011 3:45 PM EDT >> MICK Medrano Dec 20, 2011 4:01 PM Pt states some [...] uncontrolled documented in this encounter Care Teams Open Hearth Furnace Operator Helper Relationship Specialty Start Date End Date Ej Duran MD [address] [place] [address] PCP - General 10/28/11 06/04/18 documented as of this encounter
--- OUTSIDE RECORDS SUMMARY | 2024-02-24 17:03 | XMS_ITS | Encounter Summary ---
Author Organization [facility] [address] Care Team Providers Care Oncology Consultant Name Role Phone Ej Duran MD Primary Care Provider [phone] Reason for Visit * Reason Comments Post Op 1 week s/p LPI OD Encounter Details Date Type Department Care Team (Late st Contact Info) Description 04/14/2012 11:15 AM EST Office [place] [address] Phillip Schwartz MD [facility] [place] [address] Acute angle-closure glaucoma of right eye (Primary [...] glaucoma documented in this encounter Care Teams Oncology Consultant Relationship Specialty Start Date End Date Ej Duran MD [address] [place] [address] PCP - General 10/28/11 06/04/18 documented as of this encounter
--- OUTSIDE RECORDS SUMMARY | 2024-02-24 17:03 | XMS_ITS | Encounter Summary ---
Author Organization [facility] [place] [address] Care Team Providers Care Eyeglass Assembler Name Role Phone Edi Petros SAXENA Primary Care Provider [phone] Reason for Visit * Reason Comments Procedure PRP OD (possibly OS) // Definitely OS given VH density OD CBC MD Encounter Details Date Type Department Care Team (Late st Contact Info) Description 07/06/2011 7:45 AM EST Procedure [place] [address] Ruthann Beckett MD [facility] [place] [address] Diabetes mellitus (Primary Dx); Blurred vision; Vitreous [...] uncontrolled documented in this encounter Care Teams Eyeglass Assembler Relationship Specialty Start Date End Date Petros Daley DO [address] [place] [address] PCP - General 06/15/11 10/27/11 documented as of this encounter
--- OUTSIDE RECORDS SUMMARY | 2024-02-24 17:03 | XMS_ITS | Encounter Summary ---
Author Organization [facility] [place] [address] Care Team Providers Care Drencher Name Role Phone Ej Duran MD Primary Care Provider [phone] Reason for Visit * Reason Comments PDR Patient presents for postoperative evaluation of the right eye but notes distortion in the left eye. CBC M.D. Chronic Angle Closure Glaucoma OD Vitreous Hemorrhage OD Encounter Details Date Type Department Care Team (Late st Contact Info) Description 05/03/2012 12:45 PM EST Office [place] [address] Matteo Diane MD [facility] [address] [place] [address] Proliferative diabetic retinopathy of both eyes. Stable [...] Diane M.D. Matteo Diane [facility] * FUNDUS PHOTOS - OS [...] ESTRELLA FERRO Matteo Diane MD [facility] documented in this encounter Visit [...] Hypermetropia documented in this encounter Care Teams Drencher Relationship Specialty Start Date End Date Ej Duran MD [address] [place] [address] PCP - General 10/28/11 06/04/18 documented as of this encounter
--- OUTSIDE RECORDS SUMMARY | 2024-02-24 17:03 | XMS_ITS | Encounter Summary ---
[place] [address] Care Team Providers Care Tube Tester Name Role Phone Ej Duran MD Primary Care Provider [phone] Reason for Visit * Reason Comments Eye Pain Pt. is here for an e ye pain check w/ Dr. Hancock. OD was in a lot of pain over the weekend that has regressed to a dull pain now OD. Encounter Details Date Type Department Care Team (Late st Contact Info) Description 05/01/2012 11:15 AM EST [place] [address] Miriam Hancock MD Post-operative state (Primary Dx) Discharge Disposition: Home [...] status documented in this encounter Care Teams Tube Tester Relationship Specialty Start Date End Date Ej Duran MD [address] [place] [address] PCP - General 10/28/11 06/04/18 documented as of this encounter
--- OUTSIDE RECORDS SUMMARY | 2024-02-24 17:03 | XMS_ITS | Encounter Summary ---
Author Organization [facility] [place] [address] Care Team Providers Care Rug Shampooer Name Role Phone Ej Duran MD Primary Care Provider [phone] Reason for Visit * Reason Comments Eye Problem The patient presents with severe reduction visual acuity right eye. Benedicto Hardy Vitreous Hemorrhage OD; shared pt with maeve duran/ MANN did laser Encounter Details Date Type Department Care Team ([facility] st Contact Info) Description 02/22/2012 12:30 PM EDT [place] [address] Matteo Beckett MD [facility] [place] [address] Vitreous hemorrhage (Primary Dx); Proliferative diabetic retinopathy, [...] EDT February 27, 2012 Ej Duran M.D. [facility] [address] [place] [address] RE: Maurice Rudolph A#: [id number] Duran: Just a brief note [...] way to reach me is through my engineering assistant Joselin at [phone]. Respectfully, Matteo Beckett M.D. documented in this encounter Nursing Notes * 02/22/2012 12:30 PM EDT >> MATTEO BECKETT MD [place] Feb 27, 2012 1:15 PM Patient continues [...] as indicated Matteo Beckett MD OPHTHALMOLOGY S [facility] ORDERABLES documented in this encounter Visit Diagnoses Diagnosis Vitreous hemorrhage- Primary Proliferative diabetic retinopathy, both eyes Type II or unspecified type diabetes mellitus with ophthalmic manifestations, not stated as uncontrolled Vitreous hemorrhage, right eye Vitreous hemorrhage Diabetes mellitus Type II or unspecified type diabetes mellitus without mention of complication, not stated as uncontrolled documented in this encounter Care Teams Rug Shampooer Relationship Specialty Start Date End Date Ej Duran MD [address] [place] [address] PCP - General 10/28/11 06/04/18 documented as of this encounter
--- OUTSIDE RECORDS SUMMARY | 2024-02-24 17:03 | XMS_ITS | Clinical Summary ---
Author Organization [facility] Address [address] [place] [address] Care Team Providers Care Seed Cleaner Operator Name Role Phone Sanjay AriannaJarad barrientos Maeve DNP Primary Care Provider [phone] Allergies No known active allergies Medications Medication [...] mouth every , , Sat (Dialysis). Active mv,Ut-UU-S5-OM-3-dha- epa-fish (PRORENAL QD) 400-500 mcg-unit capsule Take [...] Cellulitis 10/12/2018 ESRD (end stage renal disease) ([facility]) 019 Encounters Date Type Department Care Team Description 12/28/2023 19:36 EDT - 12/28/2023 23:59 EDT Hospital Encounter [facility] [place] Discharge Disposition: Home or Self Care 12/28/2023 19:36 EDT - 12/28/2023 23:59 EDT Hospital Encounter [facility] [place] Discharge Disposition: Home or Self Care from Last 3 Months Surgical History Surgery Date Site/Laterality Comments CORONARY ARTERY BYPASS GRAFT 05/02/2014 - 05/01/2015 Medical History Medical History Date Comments End stage renal disease on dialysis ([facility]) Diabetes mellitus ([facility]) Coronary artery disease Neuropathy GERD [...] 1-dose 60+ series) 2019 COVID-19 Vaccine ( season) 2024 Hepatitis C Screen Completed 07/31/2021 Procedures Procedure [...] ORDERABLES [facility] [address] [place] [address] from Last 3 Months or Most Recently Relevant to Health Maintenance Advance Directives For more information, please contact: [phone] * Full Code (Latest Code Status on File) Date Activated Date Inactivated Comments 10/12/2018 13:48 10/14/2018 16:39 Question Answer Comments Reason for decision includes: Full code consistent with overall plan of care Who participated in the discussion? Patient Care Teams Seed Cleaner Operator Relationship Specialty Start Date End Date Jarad Iglesias, [facility] [place] [address] PCP - General 10/12/18
--- OUTSIDE RECORDS SUMMARY | 2024-02-24 17:03 | XMS_ITS | Encounter Summary ---
Author Organization [facility] Address [address] [place] [address] Care Team Providers Care Fuse Coiler Name Role Phone Sanjay AriannaJarad barrientos Maeve DNP Primary Care Provider [phone] Encounter Details Date Type Department Care Team (Late st Contact Info) Description 07/31/2021 Lab Requisition [facility] Pathology & Laboratory Medicine - [facility] [address] [place] [address] Outr Resulting Lab, Provider Social History Tobacco [...] C Antibody Negative Negative 08/03/2021 9:53 EDT [facility] Blood VENOUS BLOOD / Unknown 07/31/2021 10:10 EDT 07/31/2021 21:21 EDT Provider Outr Resulting Lab CHEMISTRY & BLOOD GAS ORDERABLES [facility] [address] [place] [address] documented in this encounter Visit Diagnoses Not on filedocumented in this encounter Care Teams Fuse Coiler Relationship Specialty Start Date End Date Jarad Iglesias, D[place] [address] PCP - General 10/12/18 documented as of this encounter
--- OUTSIDE RECORDS SUMMARY | 2024-02-24 17:03 | XMS_ITS | Encounter Summary ---
Author Organization [facility] [place] [address] Care Team Providers Care Plastic Press Operator Name Role Phone Ej Duran MD Primary Care Provider [phone] Encounter Details Date Type Department Care Team (Late st Contact Info) Description 04/03/2012 9:34 AM EST - 04/03/2012 12:02 PM EST Surgery [place] [address] Ruthann Augustin MD [facility] [place] [address] REPAIR COMPLEX RETINAL DETACH W/VITRECTOMY, MEMBRANE PEELING, [...] have additional concerns or questions please call. [phone] 7. If after hours please call [phone] for the ophthalogy doctor adapted physical education specialist. [address] ??? [place] [address] ??? [phone] ??? [email or web address] ??? [facility] ??? [facility] ??? [place], [place] * Patient Instructions* Gloria Vo PA - 04/03/2012 12:24 PM EST Please keep patch and shield on operated eye until follow up appointment tomorrow. Ice packs over patch and shield as needed for pain. Tylenol 500 mg every four hours as needed for pain. Please bring eye kit and all eye drops to tomorrow's appointment. Call [phone] for all questions concerns. Have patient remain [...] Augustin MD - 04/03/2012 12:30 PM EST [facility] Operative Note Patient Name: Maurice Rudolph : [id number] MR#: [id number] Case Date: 04/03/2012 Surgeon: Surgeon(s) and Role: * Ruthann Augustin MD - Primary * HERVE Edwards - Resident-Fabric Designer Preoperative diagnosis: PDR & VIT HEM Postoperative [...] 118 minutes. * OR Attestation - Ruthann Auugstin MD - 04/03/2012 12:29 PM EST Attestation: Case Date: 04/03/2012 I performed this procedure without the involvement of a resident. RUTHANN AUGUSTIN MD 04/03/2012 * Brief Op Note - Ruthann Augustin MD - 04/03/2012 12:28 PM EST Brief Operative Note Patient Name: Maurice Rudolph : [id number] MR#: [id number] Case Date: 04/03/2012 Surgeon: Surgeon(s) and Role: * Ruthann Augustin MD - Primary * HERVE Edwards - Resident-Fabric Designer Preoperative diagnosis: PDV & VIT HEM Postoperative [...] Glucose, POC 178 60 - 199 mg/dL [facility] Comment: Supplemental ranges: <110 mg/dL before meals <200 mg/dL all other times of the day Blood specimen (specimen) 04/03/2012 1:04 PM EST 04/03/2012 1:04 PM EST Ruthann Augustin MD POINT OF CARE T EST ORDERABLES Performing Organization Address [facility] Co de Phone Number [facility] * POCT Glucose (04/03/2012 8:22 AM EST) Glucose, POC 152 60 - 199 mg/dL [facility] Comment: Supplemental ranges: <110 mg/dL before meals <200 mg/dL all other times of the day Blood specimen (specimen) 04/03/2012 8:22 AM EST 04/03/2012 8:22 AM EST Ruthann Augustin MD POINT OF CARE T EST ORDERABLES Performing Organization Address [facility] Co de Phone Number [facility] documented in this [...] Given 04/03/2012 8:26 AM EST 1 drop iiywznig-yjowwempq-iyzkmifjyimux (DEXACINE) 3.5-10,000-0.1 mg-unit/g-% ophthalmic ointment ONCE PRN, [...] Procedure), Routine 08 (Given - Provid er: Nettei Bailey RN)0830 (Given - Provider: Nettie Bailey [...] Ruthann Augustin MD - Comment: post op) qhuurzdd-ipdmpsigo-wcqbramsub one (DEXACINE) 3.5-10,000-0.1 mg-unit/g-% ophthalmic ointment (CANCELED) [...] cefazolin) documented in this encounter Care Teams Plastic Press Operator Relationship Specialty Start Date End Date Ej Duran MD [address] [place] [address] PCP - General 10/28/11 06/04/18 documented as of this encounter
--- OUTSIDE RECORDS SUMMARY | 2024-02-24 17:03 | XMS_ITS | Encounter Summary ---
Author Organization [facility] [place] [place] [address] Care Team Providers Care State Patrol Officer Name Role Phone Ej Duran MD Primary Care Provider [phone] Reason for Visit * Reason Comments Procedure vit tap to remove ga s OD Encounter Details Date Type Department Care Team (Late st Contact Info) Description 04/05/2012 12:00 PM EST Procedure [place] [address] Matteo Diane MD [facility] [place] [address] Vitreous hemorrhage, right eye; Proliferative diabetic retinopathy, [...] Diane md Matteo Diane MD OPHTHALMOLOGY S [facility] ORDERABLES documented in this encounter [...] glaucoma documented in this encounter Care Teams State Patrol Officer Relationship Specialty Start Date End Date Ej Duran MD [address] [place] [address] PCP - General 10/28/11 06/04/18 documented as of this encounter
--- OUTSIDE RECORDS SUMMARY | 2024-02-24 17:03 | XMS_ITS | Encounter Summary ---
Author Organization [facility] [place] [address] Care Team Providers Care Dough Molder Name Role Phone Petros Daley DO Primary Care Provider [phone] Reason for Visit * Reason Comments Diabetes Pt sent by Optical E xpressions for proliferative diabetic retinopathy and vitreous hemorrhage OD Encounter Details Date Type Department Care Team (Late st Contact Info) Description 06/15/2011 10:00 AM EST Office [place] [address] [facility] [place] [address] Diabetes mellitus (Primary Dx); Proliferative diabetic retinopathy, [...] hemorrhage documented in this encounter Care Teams Dough Molder Relationship Specialty Start Date End Date Petros Daley DO [address] [facility] [address] [place] [address] PCP - General 06/15/11 10/27/11 documented as of this encounter
--- OUTSIDE RECORDS SUMMARY | 2024-02-24 17:03 | XMS_ITS | Encounter Summary ---
Author Organization [facility] [place] [address] Care Team Providers Care Bulb Assembler Name Role Phone Ej Duran MD Primary Care Provider [phone] Reason for Visit * Reason Comments Eye Problem 5 wk ck, s/p PRP OS for Diabetic retinopathy. As reduced vision right eye and plans for vitrectomy right eye. Encounter Details Date Type Department Care Team (Late st Contact Info) Description 10/28/2011 12:45 PM EDT [place] [address] Matteo Beckett MD [facility] [place] [address] Blurred vision; Diabetes mellitus; Proliferative diabetic retinopathy, [...] hemorrhage documented in this encounter Care Teams Bulb Assembler Relationship Specialty Start Date End Date Ej Duran MD [address] [place] [address] PCP - General 10/28/11 06/04/18 documented as of this encounter
--- OUTSIDE RECORDS SUMMARY | 2024-02-24 17:03 | XMS_ITS | Encounter Summary ---
Author Organization [facility] [place] [address] Care Team Providers Care Front Desk Clerk Name Role Phone Ej Duran MD Primary Care Provider [phone] Reason for Visit * Reason Comments Post Op tearfor management o fangle-closure Eye Exam sees OD at Optical E xpressions (?name) Encounter Details Date Type Department Care Team (Late st Contact Info) Description 04/06/2012 1:00 PM EST Office [place] [address] Matteo Diane MD [facility] [address] [place] [address] Vitreous hemorrhage, right eye; Proliferative diabetic retinopathy, [...] glaucoma documented in this encounter Care Teams Front Desk Clerk Relationship Specialty Start Date End Date Ej Duran MD [address] [place] [address] PCP - General 10/28/11 06/04/18 documented as of this encounter
--- OUTSIDE RECORDS SUMMARY | 2024-02-24 17:03 | XMS_ITS ---
[place] [address] Care Team Providers Care Aluminum Fabrication Supervisor Name Role Phone None Primary Care Provider Unavailabl e Transplant Episode Kidney Candidate [facility] ([place], [place]) [facility] Evaluation began on 02/06/2020 Marked as Ineligible on 01/13/2021 Reason: Unable to Contact Patient Kidney CoordinatorSherie Mccallum APRN Phone: N/A Fax: N/A Email: N/A Scores Score Value Updated Exceptions/Reas ons CPRA Not available EPTS (Calc) 94 02/24/2024 [place] Organ Diagnosis Organ Primary Contributory Kidney Diabetes Mellitus - Type I Care Team Name Role Phone Fax Email Sherie Mccallum APRN Kidney Coordinator N/A N/A N/A Cheryl Presley RD Registered Dietitian N/A N/A N/A Too Morgan MD Referring Physician N/A N/A N/A Ana Hernández Neon Technician N/A N/A N/A GAURI Vernon Etl Analyst Developer N/A N/A N/A Young Watts MD Transplant Physician N/A N/A N/A Events Pre-Transplant Referred: 12/18/2019 Evaluation began: 02/06/2020 Committee: 01/13/2021 Pending Checklist Tasks (Due on or before 03/26/2024) Name Due Date Attached Appoint ment Coordinator Review of Records 07/13/2020 Dialysis History Dialysis History Start End Type Comments Center 02/15/2017 In-center Hemodialysis [facility] [place] Dialysis [facility] Information Center Phone Fax Address [facility] [phone] [address] [facility] [address]
--- OUTSIDE RECORDS SUMMARY | 2024-02-24 17:03 | XMS_ITS | Encounter Summary ---
Author Organization [facility] [place] [address] Care Team Providers Care Security Solutions Architect Name Role Phone Ej Duran MD Primary Care Provider [phone] Reason for Visit * Reason Comments PDR Pt. is here for a re tinal eye evaluation w/ Dr. Diane. Encounter Details Date Type Department Care Team (Late st Contact Info) Description 05/19/2012 2:30 PM EST [place] [address] Matteo Diane MD [facility] [address] Proliferative diabetic retinopathy of both eyes. Status [...] as of this encounter Progress Notes * Mtateo Diane MD - 05/20/2012 11:14 PM EST [...] glaucoma documented in this encounter Care Teams Security Solutions Architect Relationship Specialty Start Date End Date Ej Duran MD [address] [place] [address] PCP - General 10/28/11 06/04/18 documented as of this encounter
--- OUTSIDE RECORDS SUMMARY | 2024-02-24 17:03 | XMS_ITS | Encounter Summary ---
Author Organization [facility] [place] [address] Care Team Providers Care Vision Care Associate Name Role Phone Edi Petros SAXENA Primary Care Provider [phone] Encounter Details Date Type Department Care Team (Late st Contact Info) Description 08/05/2011 11:59 PM EDT Anesthesia Event [place] [address] Kameron Bojorquez MD [facility] [place] [address] Darian Bañuelos MD [facility] [place] [address] Anesthesia Record Procedure Summary Procedure Name Responsible [...] on filedocumented in this encounter Care Teams Vision Care Associate Relationship Specialty Start Date End Date Petros Daley DO [address] [place] [address] PCP - General 06/15/11 10/27/11 documented as of this encounter
--- OUTSIDE RECORDS SUMMARY | 2024-02-24 17:03 | XMS_ITS | Encounter Summary ---
Author Organization [facility] [place] [address] Care Team Providers Care Preanalytics Team Lead Name Role Phone Ej Duran MD Primary Care Provider [phone] Encounter Details Date Type Department Care Team (Late st Contact Info) Description 04/03/2012 7:54 AM EST - 04/03/2012 3:13 PM [facility] Hospital Encounter [place] [address] Ruthann Augustin MD [facility] [place] [address] Discharge Disposition: Home Social History Tobacco Use [...] have additional concerns or questions please call. [phone] 7. If after hours please call [phone] for the ophthalogy doctor hospice nurse practitioner. [address] [facility] [address] ??? CHETAN Henriquez [address] ??? [phone] ??? [email or web address] [facility] ??? [facility] ??? [facility] ??? [facility] [place], [place] * Patient Instructions* Gloria Vo PA - 04/03/2012 12:24 PM EST Please keep patch and shield on operated eye until follow up appointment tomorrow. Ice packs over patch and shield as needed for pain. Tylenol 500 mg every four hours as needed for pain. Please bring eye kit and all eye drops to tomorrow's appointment. Call [phone] for all questions concerns. Have patient remain [...] Augustin MD - 04/03/2012 12:30 PM EST [facility] Operative Note Patient Name: Maurice Rudolph : [id number] MR#: [id number] Case Date: 04/03/2012 Surgeon: Surgeon(s) and Role: * Ruthann Augustin MD - Primary * HERVE Edwards - Resident-Algorithm Design Engineer Preoperative diagnosis: PDR & VIT HEM Postoperative [...] procedure without the involvement of a resident. RTUHANN AUGUSTIN MD 04/03/2012 * Brief Op Note - Ruthann Augustin MD - 04/03/2012 12:28 PM EST Brief Operative Note Patient Name: Maurice Rudolph : [id number] MR#: [id number] Case Date: 04/03/2012 Surgeon: Surgeon(s) and Role: * Ruthann Augustin MD - Primary * HERVE Edwards - Resident-Algorithm Design Engineer Preoperative diagnosis: PDV & VIT HEM Postoperative [...] Glucose, POC 178 60 - 199 mg/dL [facility] Comment: Supplemental ranges: <110 mg/dL before meals <200 mg/dL all other times of the day Blood specimen (specimen) 04/03/2012 1:04 PM EST 04/03/2012 1:04 PM EST Ruthann Augustin MD POINT OF CARE T EST ORDERABLES Performing Organization Address [facility] Co de Phone Number [facility] * POCT Glucose (04/03/2012 8:22 AM EST) Glucose, POC 152 60 - 199 mg/dL [facility] Comment: Supplemental ranges: <110 mg/dL before meals <200 mg/dL all other times of the day Blood specimen (specimen) 04/03/2012 8:22 AM EST 04/03/2012 8:22 AM EST Ruthann Augustin MD POINT OF CARE T EST ORDERABLES Performing Organization Address [facility] Co de Phone Number [facility] documented in this encounter [...] Ruthann Augustin MD - Comment: post op) okaidmeo-azsgvrkwh-dkjdgmjbio one (DEXACINE) 3.5-10,000-0.1 mg-unit/g-% ophthalmic ointment (CANCELED) [...] cefazolin) documented in this encounter Care Teams Preanalytics Team Lead Relationship Specialty Start Date End Date Ej Duran MD [address] [place] [address] PCP - General 10/28/11 06/04/18 documented as of this encounter
--- OUTSIDE RECORDS SUMMARY | 2024-02-24 17:03 | XMS_ITS | Encounter Summary ---
[place] [address] Care Team Providers Care Mastic Worker Name Role Phone Ej Duran MD Primary Care Provider [phone] Reason for Visit * Reason Comments Procedure PRP OS Encounter Details Date Type Department Care Team (Late st Contact Info) Description 01/04/2012 3:30 PM EDT Procedure [place] [address] Miriam Hancock MD PDR (proliferative diabetic retinopathy) [...] uncontrolled documented in this encounter Care Teams Mastic Worker Relationship Specialty Start Date End Date Ej Duran MD [address] [place] [address] PCP - General 10/28/11 06/04/18 documented as of this encounter
--- OUTSIDE RECORDS SUMMARY | 2024-02-24 17:03 | XMS_ITS | Encounter Summary ---
Author Organization [facility] [place] [address] Care Team Providers Care Production Control Scheduler Name Role Phone Ej Duran MD Primary Care Provider [phone] Reason for Visit * Reason Comments PDR 4 wk ck, PRP 8/20 & 9/4 OS. Vision better OD. OD still poor. ESTRELLA FERRO Encounter Details Date Type Department Care Team (Late st Contact Info) Description 02/01/2012 1:30 PM EDT Follow-[place] [address] Matteo Beckett MD [facility] [place] [address] Diabetes mellitus; Blurred vision; Diabetic retinopathy; Proliferative [...] EDT February 01, 2012 Ej Duran M.D. [facility] [address] [place] [address] RE: Maurice Gurrola#: [id number] Duran: I had the pleasure [...] The best way to contact us is [phone]. He may speak to Joselin Montemayor, our training administrator or to Simeon, our project scheduler to keep us updated regarding his [...] hemorrhage documented in this encounter Care Teams Production Control Scheduler Relationship Specialty Start Date End Date Ej Duran MD [address] [place] [address] PCP - General 10/28/11 06/04/18 documented as of this encounter
--- OUTSIDE RECORDS SUMMARY | 2024-02-24 17:03 | XMS_ITS | Encounter Summary ---
Author Organization [facility] [place] [address] Care Team Providers Care Clearance Rep Name Role Phone Ej Duran MD Primary Care Provider [phone] Reason for Visit * Reason Comments Eye Problem The patient presents for postoperative evaluation status post complex vitrectomy right eye. ESTRELLA Hardy Eye Problem Encounter Details Date Type Department Care Team (Late st Contact Info) Description 06/06/2012 1:00 PM EST Office [place] [address] [facility] DR [place] [address] Proliferative diabetic retinopathy of both eyes. Stable [...] uncontrolled documented in this encounter Care Teams Clearance Rep Relationship Specialty Start Date End Date Ej Duran MD [address] [place] [address] PCP - General 10/28/11 06/04/18 documented as of this encounter
--- OUTSIDE RECORDS SUMMARY | 2024-02-24 17:03 | XMS_ITS ---
[place] [address] Care Team Providers Care Precision Assembler Bench Name Role Phone None Primary Care Provider Unavailabl e Transplant Episode Kidney Candidate [facility] ([place], [place]) - [facility]PLACED BY [facility] Evaluation began on 06/08/2018 Marked as Not a Candidate on 08/09/2018 Reason: Unable to Contact Patient Kidney CoordinatorCherelle Colvin RN Phone: N/A Fax: N/A Email: N/A Scores Score Value Updated Exceptions/Reas ons CPRA Not available EPTS (Calc) 94 02/24/2024 [facility] [place] Organ Diagnosis Organ Primary Contributory Kidney Diabetes Mellitus - Type I Care Team Name Role Phone Fax Email Cherelle Colvin RN Kidney Coordinator N/A N/A N/A Too Morgan MD Referring Physician N/A N/A N/A Ana Hernández Seasonal Package Handler N/A N/A N/A Merlene Ferro RD Registered Dietitian N/A N/A N/A Ines Nye MSW City Dispatcher N/A N/A N/A Young Watts MD Transplant Physician N/A N/A N/A Events Pre-Transplant Referred: 05/09/2018 Evaluation began: 06/08/2018 Committee: 06/14/2018 Dialysis History Dialysis History Start End Type Comments Center 02/15/2017 In-center Hemodialysis Don[facility] Dialysis Center Information Center Phone Fax Address [facility] [phone] [place] [address]
--- OUTSIDE RECORDS SUMMARY | 2024-02-24 17:03 | XMS_ITS | Encounter Summary ---
Author Organization [facility] Address [address] [place] [address] Care Team Providers Care Autotransfusionist Name Role Phone Jarad Iglesias [facility] Primary Care Provider [phone] Reason for Referral * (Routine/Next Available) - Receiving Office to Obtain Authorization Specialty Diagnoses / Procedures Referred By Puneet hallman Referred To Contact Procedures XR OUTSIDE IMAGES RIGHT LOWER EXTREMITY Unknown, ProviderMD Referral ID Status Reason Start Date Expiration Date Visits Requested Visits Authorized [id number] Receiving Office to Obtain Authorization 12/28/2023 1 1 Reason for Visit * (Routine/Next Available) - Receiving Office to Obtain Authorization Specialty Diagnoses / Procedures Referred By Puneet hallman Referred To Contact Procedures XR OUTSIDE IMAGES RIGHT LOWER EXTREMITY Unknown, ProviderMD Referral ID Status Reason Start Date Expiration Date Visits Requested Visits Authorized [id number] Receiving Office to Obtain Authorization 12/28/2023 1 1 Encounter Details Date Type Department Care Team (Latest Contact Info) Description 12/28/2023 19:36 EDT - 12/28/2023 23:59 EDT Hospital Encounter [facility] Medical Center Secondary Reads [place] [...] 1 Tab by mouth at bedtime. 10/14/2018 mv,Eq-OS-J5-RL-0-roq-epa -fish (PRORENAL QD) 400-500 mcg-unit capsule Take [...] on filedocumented in this encounter Care Teams Autotransfusionist Relationship Specialty Start Date End Date Jarad Iglesias, [facility] [address] [place] [address] [place] [address] PCP - General 10/12/18 documented as of this encounter
--- OUTSIDE RECORDS SUMMARY | 2024-02-24 17:03 | XMS_ITS | Encounter Summary ---
[place] [address] Care Team Providers Care Player Services Representative Name Role Phone Ej Duran MD Primary Care Provider [phone] Reason for Visit * Reason Comments Eye Problem VA loss OS (see Meredith meneses notes) Encounter Details Date Type Department Care Team (Late st Contact Info) Description 12/06/2011 3:30 PM EDT Office [place] [address] Miriam Hancock MD PDR (proliferative diabetic retinopathy) [...] uncontrolled documented in this encounter Care Teams Player Services Representative Relationship Specialty Start Date End Date Ej Duran MD [address] [place] [address] PCP - General 10/28/11 06/04/18 documented as of this encounter
--- OUTSIDE RECORDS SUMMARY | 2024-02-24 17:03 | XMS_ITS | Encounter Summary ---
Author Organization [facility] [place] [address] Care Team Providers Care Spine Nurse Name Role Phone Petros Daley DO Primary Care Provider [phone] Reason for Visit * Reason Comments Procedure PRP OS for Diabetic retinopathy Encounter Details Date Type Department Care Team (Late st Contact Info) Description 09/21/2011 12:45 PM EDT Procedure [place] [address] [facility] [place] [address] Diabetic retinopathy (Primary Dx); Vitreous hemorrhage, right [...] uncontrolled documented in this encounter Care Teams Spine Nurse Relationship Specialty Start Date End Date Petros Daley DO [address] [place] [address] [address] [place] [address] PCP - General 06/15/11 10/27/11 documented as of this encounter
--- OUTSIDE RECORDS SUMMARY | 2024-02-24 17:03 | XMS_ITS | Encounter Summary ---
[place] [address] Care Team Providers Care Precision Filer Hand Name Role Phone Ej Duran MD Primary Care Provider [phone] Reason for Visit * Reason Comments Procedure Reopen LPI OD Encounter Details Date Type Department Care Team (Latest Contact Info) Description 06/06/2012 2:15 PM EST Procedure [place] [address] Phillip Schwartz MD [facility] [place] [address] Acute angle-closure glaucoma of right eye (Primary [...] glaucoma documented in this encounter Care Teams Precision Filer Hand Relationship Specialty Start Date End Date Ej Duran MD [address] [place] [address] PCP - General 10/28/11 06/04/18 documented as of this encounter
--- OUTSIDE RECORDS SUMMARY | 2024-02-24 17:03 | XMS_ITS | Encounter Summary ---
Author Organization [facility] [place] [address] Care Team Providers Care Live Truck Technician Name Role Phone Ej Duran MD Primary Care Provider [phone] Reason for Visit * Reason Comments Decreased Visual Acuity Pt complains of a sudden onset of decrease VA OS over the last week, seems that VA is getting worse, VA is very blurry, can not even read. Encounter Details Date Type Department Care Team (Late st Contact Info) Description 12/03/2011 10:30 AM EDT Office [place] [address] Marquise Cárdenas MD [facility] 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 documented in this encounter [...] MD OPHTHALMOLOGY SERVIC ES ORDERABLES * OCT Ahuijh-WZ-NWDS EYE (12/03/2011 4:53 PM EDT) Anatomical Region [...] uncontrolled documented in this encounter Care Teams Live Truck Technician Relationship Specialty Start Date End Date Ej Duran MD [address] [place] [address] PCP - General 10/28/11 06/04/18 documented as of this encounter
--- OUTSIDE RECORDS SUMMARY | 2024-02-24 17:03 | XMS_ITS | Referral Summary ---
Author Organization [facility] Address [address] [place] [address] Care Team Providers Care Golf Club Manager Name Role Phone Sanjay AriannaJarad barrientos Maeve DNP Primary Care Provider [phone] Encounters Date Type Department Care Team Description 12/28/2023 19:36 EDT - 12/28/2023 23:59 EDT Hospital Encounter [facility] Secondary Reads [place] Discharge Disposition: Home or Self Care 12/28/2023 19:36 EDT - 12/28/2023 23:59 EDT Hospital Encounter [facility] Secondary Reads [place] Discharge Disposition: Home [...] mouth every , , Tue (Dialysis). Active mv,Hz-YR-F0-OM-3-dha- epa-fish (PRORENAL QD) 400-500 mcg-unit capsule Take [...] Cellulitis 10/12/2018 ESRD (end stage renal disease) ([facility]) 019 Social History Tobacco Use Types Packs/Day [...] Negative Negative 08/03/2021 9:53 EDT [facility] Blood VENOUS BLOOD / Unknown 07/31/2021 10:10 EDT 07/31/2021 21:21 EDT Provider Outr Resulting Lab CHEMISTRY & BLOOD GAS ORDERABLES [facility] [address] [place] [address] from Last 3 Months or Most Recently Relevant to Health Maintenance Advance Directives For more information, please contact: [phone] * Full Code (Latest Code Status on File) Date Activated Date Inactivated Comments 10/12/2018 13:48 10/14/2018 16:39 Question Answer Comments Reason for decision includes: Full code consistent with overall plan of care Who participated in the discussion? Patient Care Teams Golf Club Manager Relationship Specialty Start Date End Date Jarad Iglesias, DNP [facility] [place] [address] PCP - General 10/12/18
--- OUTSIDE RECORDS SUMMARY | 2024-02-24 17:03 | XMS_ITS | Encounter Summary ---
[place] [address] Care Team Providers Care Silk Crepe Machine Operator Name Role Phone Ej Duran MD Primary Care Provider Encounter Details Date Type Department Care Team (Late st Contact Info) Description 04/14/2012 4:45 PM EST Office [place] [address] Matteo Diane MD [facility] [place] [address] Acute angle-closure glaucoma of right eye.stable status [...] hemorrhage documented in this encounter Care Teams Silk Crepe Machine Operator Relationship Specialty Start Date End Date Ej Duran MD [address] [place] [address] PCP - General 10/28/11 06/04/18 documented as of this encounter
--- OUTSIDE RECORDS SUMMARY | 2024-02-24 17:03 | XMS_ITS | Encounter Summary ---
Author Organization [facility] Address [address] [place] [address] Care Team Providers Care Work Study Student Name Role Phone Sanjay Shaina Keller DNP Primary Care Provider [phone] Encounter Details Date Type Department Care Team (Late st Contact Info) Description 01/22/2019 Results Only [facility] [phone] Deb Echeverria MD [address] [place] [address] [address] [place], [place] [id number] Social History Tobacco Use Types Packs/Day Years [...] ? SINDI RUDOLPH ? Accession #: ? [id number] ? : ? 1960 (Age: 58) ??M [...] Smith 01/23/2019 8:57 AM End of Report [facility] 01/22/2019 17:1 4 EDT 01/22/2019 17:14 EDT Deb Echeverria MD PATHOLOGY ORDERA ROSIE [facility] [address] [place] [address] documented in this encounter Visit Diagnoses Not on filedocumented in this encounter Care Teams Work Study Student Relationship Specialty Start Date End Date Shaina Iglesias, DNP [facility] [place] [address] PCP - General 10/12/18 documented as of this encounter
--- OUTSIDE RECORDS SUMMARY | 2024-02-24 17:04 | XMS_ITS | Encounter Summary ---
Author Organization [facility] Address [address] [place] [address] Care Team Providers Care Vp Scientific Name Role Phone Sanjay Jarad Keller DNP Primary Care Provider [phone] Encounter Details Date Type Department Care Team (Late st Contact Info) Description 10/12/2018 Results Only [facility] [phone] Unknown, Provider, Social History Tobacco Use Types [...] on filedocumented in this encounter Care Teams Vp Scientific Relationship Specialty Start Date End Date Jarad Iglesias, [facility] [place] [address] PCP - General 10/12/18 documented as of this encounter
--- OUTSIDE RECORDS SUMMARY | 2024-02-24 17:04 | XMS_ITS | Encounter Summary ---
Author Organization [facility] Address [address] [place] [address] Care Team Providers Care Dermatology Nurse Name Role Phone Jarad Iglesias DNP Primary Care Provider [phone] Reason for Referral * Follow Up (Routine/Next Available) - New Request Specialty Diagnoses / Procedures Referred By Puneet hallman Referred To Contact Diagnoses Cellulitis of left lower extremity Shaji Younger MD [address] [place] [address] Jarad Iglesias [address] [phone] Referral ID Status Reason Start Date Expiration Date Visits Requested Visits Authorized [id number] New Request Continuity of Care 10/14/2018 1 1 Question Answer Reason for Request: Follow up hospitalization for LLE cellulitis Expected Discharge Date (Inpatient Only): 10/13/2018 Encounter Details Date Type Department Care Team (Late st Contact Info) Description 10/13/2018 17:20 EDT - 10/14/2018 14:30 EDT Hospital Encounter [facility] [address] [place] [address] Xiomara Mccauley MD [address] [place] [phone] Eliot Muse MD [address] [phone] Cellulitis of left lower extremity (Primary Dx); ESRD (end stage renal disease) ([facility]) Discharge Disposition: Home or Self Care [...] diabetes mellitus with diabetic neuropathy, unspecified-E11.40[ICD-10-CM] Z79.4 FDC (current) use of insulin-Z79.4[ICD-10-CM] Z99.2 Dependence on renal dialysis-Z99.2[ICD-10-CM] I25.10 Atherosclerotic heart disease of [place] coronary artery without angina pectoris-I25.10[ICD-10-CM] K21.9 Gastro-esophageal [...] 10/12/2018 ??? ESRD (end stage renal disease) ([facility]) 10/12/2018 Resolved Hospital Problems No resolved problems [...] and chills. He subsequently sought care at [facility], reportedly on presentation to have a fever of 101.1F and was hemodynamically stable. He had a minor lactate elevationat 2.1, and received half a liter of lactated Ringer's and 1.5 g of vancomycin. Initial exam was not concerning for a necrotizing soft tissue infection and he was transferred to [facility] for further evaluation. He improved with vancomycin [...] 1 Tab by mouth at bedtime. 10/14/2018 mv,[id number] -fish (PRORENAL QD) 400-500 mcg-unit capsule Take [...] D/C Summary faxed to Evonne @ # [phone]. YUNI MOORE, # [phone] Weekend CM * [...] 10/14/2018 1237 EDT Rehabilitation Therapies Acute Therapies [facility] Therapy[facility] Note Date of Service: 10/14/2018 [...] LLE -daily CBC -follow up cultures from [facility] -tylenol q8hrs prn ?? End-stage renal [...] resident. Eliot Muse MD * Guerda Goldberg, [facility] - 10/13/2018 1052 EDT Addendum: Received [...] needs. Dialysis: Pt will resume his regular [facility] outpatient HD schedule at the [facility] dialysis unit (P: [phone]/F: [phone]) tomorrow, Saturday 10/14. Contacted unit and spoke with PERNELL Robles who confirmed pt is able to return tomorrow and that unit has Cefazolin in stock. Will send d/c summary with antibiotic orders and HD treatment sheet from today via fax. Reinstated dialysis transport with [facility]. Discharge Transportation: Pick-up is scheduled for 1600 today with [facility] (P: [phone]). Pt will be picked up in the [facility] lobby. No voucher needed. Discharge plan discussed with pt and primary team. Pt is in agreement with this plan. GAURI Whitten, MA Edge Stitcher Ext. [phone] Pager: [phone] * Christina Lamb, [facility] - 10/13/2018 1002 EDT Renal Pharmacy - Admission Progress Note Maurice Rudolph is a 58 y.o. male who dialyzes in [place], [place] on . Recommendations: - Continue calcitriol. 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 Per Dr. Younger, it is not a continuous pump and the patient was informed to not use while admitted. Insulin aspart sliding scale and bedtime regimens already ordered. - COMPUTER ASSEMBLER medications and outpatient pharmacy information updated. - [...] history obtained from: Patient, outpatient pharmacy and [facility] records. Medication reconciliation was performed. Discrepancies [...] filled: Phone #: STEVE Taylor (current pharmacy) [place], [place] (used prior to [place] move in 04/2018) For any questions, please contact the renal pharmacist, pager [phone]. If evenings or weekends, pleasecall the central pharmacy at [phone]. Christina Adonis, Pharm.D. * Guerda Goldberg, [facility] - 10/13/2018 0952 EDT Initial Case [...] Directive For Finances: No TRANSPORTATION: Transportation: Medicaid/MedicareTransport [place] Transportation: [facility] CULTURAL, ORTHODOXY and/or LANGUAGE factors affecting health care/discharge planning: [...] Listed Home Health: Other: Other (enter in comments)([place] [facility]; Outpatient dialysis TTS @ [facility] dialysis unti) POST HOSPITAL TRANSITION PLAN: Maurice Rudolph is a 58 y/o male who was admitted to [facility] for leg pain. His medical history is significant for CAD, ESRD on HD, GERD, HTN, and T2DM. Met with Maurice today to assess needs for discharge. He presented as AAOx3 and easy to engage. He shared that he resides with his , Kaye, and their 31 y/o son Ze, in a two story home in [place] with ground level entry. Maurice's bedroom is [...] with all ADLs/iADLs which is provided by [facility]. He reported that he also provides assistance and that his son is assisting her while he is hospitalized. 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 He receives services through [facility]. He shared that he is prescribed a probing/white cane but he stated that he does not wish to use it yet. He uses a magnifier to read. Maurice receives dialysis on a TTS outpatient schedule at the [facility] dialysis unit (P: [phone]/F: [phone]). He is transported to his appointments via [facility] (P: [phone]). Confirmed unit has Cefazolin available to administer at dialysis treatments if needed. Maurice is independent with ADLs/iADLs and ambulatory without an assistive device. He did not have anyservices in the community prior to admission and doesn't have any new anticipated skilled needs fordischarge. Maurice will need assistance with a ride home when discharged. GAURI Whitten, MA Edge Stitcher Ext. [phone] Pager: [phone] * Zahida Munson RN - 10/12/2018 1514 [...] and chills. He subsequently sought care at [facility], reportedly on presentation to have a fever of 101.1F and was hemodynamically stable. He had a minor lactate elevation at 2.1, and received half a liter of lactated Ringer's and 1.5 g of vancomycin. Initial exam was not concerning for a necrotizing soft tissue infection and he was transferred to [facility] for further evaluation. On interview he reports [...] being evaluated for a kidney transplant at [facility]. Does report producing a small amount of urine each day. Review of Systems A complete 10 point ROS was performed and pertinent positive and negative findings listed in HPI, otherwise negative. Past Medical History: Diagnosis Date ??? Coronary artery disease ??? Diabetes mellitus ([facility]) ??? End stage renal disease on dialysis ([facility]) ??? GERD (gastroesophageal reflux disease) ??? Hyperlipidemia [...] LLE -daily CBC -follow up cultures from [facility] -tylenol q8hrs prn End-stage renal disease [...] NO Bruit: WNL Thrill: PRESENT Function: WNL watermelon inspector access plan: maintain fistula. Labs: What labs [...] B4. Report called to dialysis unit in [facility]. ACCESS ADMISSION DISCHARGE Access Type: [...] (kg): 103.1 Flow (ml/min): 600 n/a Location: [place] Weight (kg): 103.0 Na (mmol/l): 139 n/a [...] (l): 3.0 DIALYSIS LOG Time BP Pulse HAND CLIPPER AP Blood Dial. Temp UFR UF TMP [...] treated at for sending us dialysis in [facility]. Nursing made a continuity call [...] and chills. He subsequently sought care at [facility], reportedly on presentation to have a fever of 101.1F and was hemodynamically stable. He had a minor lactate elevation at 2.1, and received half a liter of lactated Ringer's and 1.5 g of vancomycin. Initial exam was not concerning for a necrotizing soft tissue infection and he was transferred to [facility] for further evaluation. ?? On interview he [...] being evaluated for a kidney transplant at [facility]. Does report producing a small amount [...] NO Bruit: WNL Thrill: PRESENT Function: WNL watermelon inspector access plan: remain patent and infection free Labs: per epic Fluid assessm pt up .5kg from tw but has lost actual weight from nbt eating. edema lower extremiteis. will attempt 2000cc net if critline and pt tolerant.o2 on .hypotensive at start. Transplant/Modality Status:working with [facility] on transplant. Patient Education:todays treatment plan and [...] (kg): n/a Flow (ml/min): 700 n/a Location: [place] Weight (kg): 104.0 Na (mmol/l): 140 n/a Machine #: [id number] Target Weight (kg): 102.0 K (mmol/l): 2.0 [...] Removed (l): DIALYSIS LOG Time BP Pulse HAND CLIPPER AP Blood Dial. Temp UFR UF TMP [...] been on dialysis for 3 years at [facility]. He got admitted with left lower extremity [...] Resource Associate Case Management - Social Pager: [phone] * Plan of Care - Will Parisi RN - 10/13/2018 6157 EDT Problem: Daily Care Plan Goals Goal: [...] Care - Tiara Bergman RN - 10/12/2018 9041 EDT Problem: Daily Care Plan Goals Goal: [...] bladder soft. Action: Bladder scan: 266ml, notified litigation docket manager MD. Response: litigation docket manager MD aware, will recheck at 2am. Pt [...] 7.15 4.0 - 10.4 K/cmm 10/14/2018 7:44 [facility] RBC 3.10(L) 4.36 - 5.78 M/cmm 10/14/2018 7:44 [facility] Hemoglobin 10.2(L) 13.8 - 17.3 gm/dl 10/14/2018 7:44 [facility] HCT 30.0(L) 39.5 - 50.2 % 10/14/2018 7:44 [facility] MCV 97(H) 81 - 95 fl 10/14/2018 7:44 [facility] MCH 32.9 27.6 - 33.0 pg 10/14/2018 7:44 [facility] MCHC 34.0 32.8 - 36.4 gm/dl 10/14/2018 7:44 [facility] RDW-CV 14.4(H) <14.2 % 10/14/2018 7:44 [facility] RDW-SD 50.3(H) <46.0 fl 10/14/2018 7:44 [facility] PLT 145 141 - 377 K/cmm 10/14/2018 7:44 [facility] MPV 11.0 9.5 - 12.7 fl 10/14/2018 7:44 [facility] Blood specimen (specimen) BLOOD SPECIMEN / Unknown 10/14/2018 7:13 EDT 10/14/2018 7:33 EDT Shaji Younger MD HEMATOLOGY & PF4 ORD ERABLES Performing Organization Address City/[facility]/ZIP Co de Phone Number [facility] [address] [place] [address] * (ABNORMAL) GLUCOSE, GLUCOMETER (10/14/2018 6:56 EDT) Glucose, Fingerstick 223(H) 70 - 100 mg/dl 10/14/2018 6:58 EDT [facility] Film Rental Clerk ID [id number] 10/14/2018 6:58 EDT [facility] Comment:Test Per[facility] BLOOD SPECIMEN / Unknown 10/14/2018 6:56 EDT 10/14/2018 6:58 EDT Xiomara Mccauley MD CHEMISTRY & BLOO D GAS ORDERABLES Performing Organization Address [facility]/ZIP Co de Phone Number [facility] [address] [place] [address] * (ABNORMAL) GLUCOSE, GLUCOMETER (10/13/2018 23:59 EDT) Glucose, Fingerstick 201(H) 70 - 100 mg/dl 10/14/2018 0:01 EDT [facility] Film Rental Clerk ID [id number] 10/14/2018 0:01 EDT [facility] Comment:Test Performed by [facility] BLOOD SPECIMEN / Unknown 10/13/2018 23:59 EDT 10/14/2018 0:01 EDT Xiomara Mccauley MD CHEMISTRY & BLOO D GAS ORDERABLES [facility] [address] [place] [address] * (ABNORMAL) GLUCOSE, GLUCOMETER (10/13/2018 21:27 EDT) Glucose, Fingerstick 265(H) 70 - 100 mg/dl 10/13/2018 21:30 EDT [facility] Film Rental Clerk ID [id number] 10/13/2018 21:30 EDT [facility] Comment:Test Performed by [facility] Services BLOOD SPECIMEN / Unknown 10/13/2018 21:27 EDT 10/13/2018 21:30 EDT Xiomara Mccauley MD CHEMISTRY & BLOO D GAS ORDERABLES Performing Organization Address City/[facility] Co de Phone Number [facility] [address] [place] [address] * (ABNORMAL) GLUCOSE, GLUCOMETER (10/13/2018 16:04 EDT) Glucose, Fingerstick 265(H) 70 - 100 mg/dl 10/13/2018 16:04 EDT [facility] Film Rental Clerk ID [id number] 10/13/2018 16:04 EDT [facility] Comment:Test Performed by [facility] Services BLOOD SPECIMEN / Unknown 10/13/2018 16:04 EDT 10/13/2018 16:05 EDT Xiomara Mccauley MD CHEMISTRY & BLOO D GAS ORDERABLES Performing Organization Address [facility] Co de Phone Number [facility] [address] [place] [address] * (ABNORMAL) GLUCOSE, GLUCOMETER (10/13/2018 7:33 EDT) Glucose, Fingerstick 167(H) 70 - 100 mg/dl 10/13/2018 7:38 EDT [facility] Film Rental Clerk ID [id number] 10/13/2018 7:38 EDT [facility] Comment:Test Performed by [facility] Services BLOOD SPECIMEN / Unknown 10/13/2018 7:33 EDT 10/13/2018 7:38 EDT Xiomara Mccauley MD CHEMISTRY & BLOO D GAS ORDERABLES Performing Organization Address City/[facility]/ZIP Co de Phone Number [facility] [address] [place] [address] * PROTIME (10/13/2018 6:00 EDT) Pro Time 12.3 10.3 - 13.4 secs 10/13/2018 7:38 [facility] I.N.R. 1.0 0.9 - 1.1 Ratio 10/13/2018 7:38 [facility] Comment: Moderate Intensity Coumadin INR = 2.0-3.0 Adjustments in anticoagulant therapy dose should be based upon the INR and NOT the Pro Time. Blood specimen (specimen) BLOOD SPECIMEN / Unknown 10/13/2018 6:00 EDT 10/13/2018 7:16 EDT Shaji Younger MD HEMATOLOGY & PF4 ORD ERABLES Performing Organization Address City/State/[facility] Co de Phone Number [facility] [address] [place] [address] * (ABNORMAL) COMPLETE BLOOD COUNT (10/13/2018 6:00 EDT) WBC 9.59 4.0 - 10.4 K/cmm 10/13/2018 7:30 [facility] RBC 3.20(L) 4.36 - 5.78 M/cmm 10/13/2018 7:30 [facility] Hemoglobin 10.7(L) 13.8 - 17.3 gm/dl 10/13/2018 7:30 [facility] HCT 30.9(L) 39.5 - 50.2 % 10/13/2018 7:30 [facility] MCV 97(H) 81 - 95 fl 10/13/2018 7:30 [facility] MCH 33.4(H) 27.6 - 33.0 pg 10/13/2018 7:30 [facility] MCHC 34.6 32.8 - 36.4 gm/dl 10/13/2018 7:30 [facility] RDW-CV 14.4(H) <14.2 % 10/13/2018 7:30 [facility] RDW-SD 50.1(H) <46.0 fl 10/13/2018 7:30 [facility] PLT 140(L) 141 - 377 K/cmm 10/13/2018 7:30 EDT [facility] MPV 10.5 9.5 - 12.7 fl 10/13/2018 7:30 EDT [facility] Blood specimen (specimen) BLOOD SPECIMEN / Unknown 10/13/2018 6:00 EDT 10/13/2018 7:16 EDT Shaji Younger MD HEMATOLOGY & PF4 ORD ERABLES Performing Organization Address [facility] de Phone Number [facility] [address] [place] [address] * (ABNORMAL) ELECTROLYTES (10/13/2018 6:00 EDT) Sodium 130(L) 136 - 145 mEq/L 10/13/2018 8:26 EDT [facility] Potassium 4.3 3.5 - 5.0 mEq/L 10/13/2018 8:26 EDT [facility] Chloride 89(L) 96 - 110 mEq/L 10/13/2018 8:26 EDT [facility] CO2 26 22 - 32 mEq/L 10/13/2018 8:26 EDT [facility] Blood specimen (specimen) BLOOD SPECIMEN / Unknown 10/13/2018 6:00 EDT 10/13/2018 7:16 EDT Shaji Younger MD CHEMISTRY & BLOOD GA S ORDERABLES Performing Organization Address [facility] de Phone Number [facility] [address] [place] [address] * (ABNORMAL) GLUCOSE, GLUCOMETER (10/12/2018 20:10 EDT) Glucose, Fingerstick 219(H) 70 - 100 mg/dl 10/12/2018 20:11 EDT [facility] Film Rental Clerk ID [id number] 10/12/2018 20:11 EDT [facility] Comment:Test Performed by [facility] Services BLOOD SPECIMEN / Unknown 10/12/2018 20:10 EDT 10/12/2018 20:11 EDT Xiomara Mccauley MD CHEMISTRY & BLOO D GAS ORDERABLES Performing Organization Address [facility] Co de Phone Number [facility] [address] [place] [address] * (ABNORMAL) GLUCOSE, GLUCOMETER (10/12/2018 18:34 EDT) Glucose, Fingerstick 197(H) 70 - 100 mg/dl 10/12/2018 18:48 EDT [facility] Film Rental Clerk ID [id number] 10/12/2018 18:48 EDT [facility] Comment:Test Performed by [facility] BLOOD SPECIMEN / Unknown 10/12/2018 18:34 EDT 10/12/2018 18:48 EDT Xiomara Mccauley MD CHEMISTRY & BLOO D GAS ORDERABLES Performing Organization Address [facility] Co de Phone Number [facility] [address] [place] [address] * (ABNORMAL) GLUCOSE, GLUCOMETER (10/12/2018 14:10 EDT) Glucose, Fingerstick 134(H) 70 - 100 mg/dl 10/12/2018 14:10 EDT [facility] Film Rental Clerk ID [id number] 10/12/2018 14:10 EDT [facility] Comment:Test Performed by Nu [facility] Services BLOOD SPECIMEN / Unknown 10/12/2018 14:10 EDT 10/12/2018 14:11 EDT Xiomara Mccauley MD CHEMISTRY & BLOO D GAS ORDERABLES Performing Organization Address [facility] Co de Phone Number [facility] [address] [place] [address] * (ABNORMAL) PROTIME (10/12/2018 14:06 EDT) Pro Time 13.6(H) 10.3 - 13.4 secs 10/12/2018 14:38 EDT [facility] I.N.R. 1.2(H) 0.9 - 1.1 Ratio 10/12/2018 14:38 [facility] Comment: Moderate Intensity Coumadin INR = 2.0-3.0 Adjustments in anticoagulant therapy dose should be based upon the INR and NOT the Pro Time. Blood specimen (specimen) BLOOD SPECIMEN / Unknown 10/12/2018 14:06 EDT 10/12/2018 14:14 EDT Shaji Younger MD HEMATOLOGY & PF4 ORD ERABLES [facility] [address] [place] [address] * (ABNORMAL) COMPLETE BLOOD COUNT (10/12/2018 14:06 EDT) WBC 10.31 4.0 - 10.4 K/cmm 10/12/2018 14:33 [facility] RBC 3.42(L) 4.36 - 5.78 M/cmm 10/12/2018 14:33 [facility] Hemoglobin 11.2(L) 13.8 - 17.3 gm/dl 10/12/2018 14:33 [facility] HCT 33.2(L) 39.5 - 50.2 % 10/12/2018 14:33 [facility] MCV 97(H) 81 - 95 fl 10/12/2018 14:33 [facility] MCH 32.7 27.6 - 33.0 pg 10/12/2018 14:33 [facility] MCHC 33.7 32.8 - 36.4 gm/dl 10/12/2018 14:33 [facility] RDW-CV 14.6(H) <14.2 % 10/12/2018 14:33 [facility] RDW-SD 51.2(H) <46.0 fl 10/12/2018 14:33 [facility] PLT 150 141 - 377 K/cmm 10/12/2018 14:33 [facility] MPV 10.2 9.5 - 12.7 fl 10/12/2018 14:33 EDT [facility] Blood specimen (specimen) BLOOD SPECIMEN / Unknown 10/12/2018 14:06 EDT 10/12/2018 14:14 EDT Shaji Younger MD HEMATOLOGY & PF4 ORD ERABLES Performing Organization Address [facility] de Phone Number [facility] [address] [place] [address] * (ABNORMAL) ELECTROLYTES (10/12/2018 14:06 EDT) Sodium 131(L) 136 - 145 mEq/L 10/12/2018 14:49 EDT [facility] Potassium 4.2 3.5 - 5.0 mEq/L 10/12/2018 14:49 T [facility] Chloride 90(L) 96 - 110 mEq/L 10/12/2018 14:49 EDT [facility] CO2 29 22 - 32 mEq/L 10/12/2018 14:49 EDT [facility] Blood specimen (specimen) BLOOD SPECIMEN / Unknown 10/12/2018 14:06 EDT 10/12/2018 14:14 EDT Shaji Younger MD CHEMISTRY & BLOOD GA S ORDERABLES Performing Organization Address [facility] de Phone Number [facility] [address] [place] [address] * HEMOGLOBIN A1C (10/12/2018 14:06 EDT) Hemoglobin A1C 9.7 % 10/12/2018 15:02 EDT [facility] Comment: Reference Range: <5.7% Normal 5.7-6.4% Prediabetes =>6.5% Diagnostic for diabetes (if confirmed) Goals for glycemic control in diabetes ADA 2017 For non adults with diabetes: ?? Target <7.0% For children and adolescents with type 1 diabetes: ?? Target <7.5% More or less stringent targets may be appropriate for individual patients. Est Avg Glucose 232 mg/dl 9 15:02 EDT [facility] Comment: eAG represents the A1c result expressed as average glucose in mg/dl. Blood specimen (specimen) BLOOD SPECIMEN / Unknown 10/12/2018 14:06 EDT 10/12/2018 14:14 EDT Shaji Younger MD CHEMISTRY & BLOOD GA S ORDERABLES [facility] [address] [place] [address] documented in this encounter Visit Diagnoses Diagnosis Cellulitis- Primary Cellulitis and abscess of unspecified site Cellulitis of left lower extremity Cellulitis and abscess of leg, except foot ESRD (end stage renal disease) ([facility]) End stage renal disease ESRD (end stage renal disease) ([facility]) End stage renal disease documented in [...] mcg into the vein every Tuesday (Dialysis). mv,Gn-[id number]-OM-3-dha-ep a-fish (PRORENAL QD) 400-500 mcg-unit capsule Take [...] 09/30 documented in this encounter Care Teams Dermatology Nurse Relationship Specialty Start Date End Date Jarad Igelsias, DANIKA [facility] [place] [address] PCP - General 10/12/18 documented as of this encounter
--- OUTSIDE RECORDS SUMMARY | 2024-02-24 17:04 | XMS_ITS | Encounter Summary ---
Author Organization [facility] Address [address] [place] [address] Care Team Providers Care Research Archaeologist Name Role Phone Sanjay AriannaJarad barrientos Maeve DNP Primary Care Provider [phone] Reason for Visit * Reason Onset Date Comments Discuss Possible Transfer 10/12/2018 Encounter Details Date Type Department Care Team (Late st Contact Info) Description 10/12/2018 Telephone [facility] MED [address], [place] [id number] Xiomara Mccauley MD [address] [place] [phone] Discuss Possible Transfer Social History Tobacco [...] Encounter - Xiomara Mccauley MD - 10/12/2018 0783 EDT Telephone call from Dr. Chávez at [facility] via [facility] regarding possible transfer. Patient [...] placed for retention. No beds available at [facility]. Accepted patient for emergent transfer to medicine bed with telemetry given rapidly progressive cellulitis and associated sepsis. Xiomara Mccauley MD documented in this encounter Plan of Treatment Not on file documented as of this encounter Visit Diagnoses Not on filedocumented in this encounter Care Teams Research Archaeologist Relationship Specialty Start Date End Date Jarad Iglesias, [facility] [place] [phone] PCP - General 10/12/18 documented as of this encounter
[2024-02-24 20:05] LABS: ALT 31 U/L (16-63); AST 24 U/L (15-37); Albumin 3.7 g/dL (3.4-5.0); Alkaline Phosphatase 100 U/L (46-116); BUN 25 mg/dL (7-18); Bilirubin, Total 0.51 mg/dL (0.2-1.0); Calculated LDL 22 mg/dL (<100); Chloride 97 mmol/L (98-107); Cholesterol 94 mg/dL (<200); Estimated GFR 11.11 (mL/min/1.73m2); Glucose 325 mg/dL (74-106); HDL Cholesterol 42 mg/dL (40-60); Potassium 4.6 mmol/L (3.5-5.1); Sodium 137 mmol/L (136-145); Total Protein 7.9 g/dL (6.4-8.2); Triglyceride 151 mg/dL (<150)
[2024-02-24 20:26] LABS: CREATININE 5.4 mg/dL (0.70-1.30)
== END 2024-02-24 16:30 | disposition home or self-care (01) ==
LOC: NCHCN 16:29
PROVIDERS: PCP Student in an Organized Health Care Education/Training Program; Visit Provider Student in an Organized Health Care Education/Training Program
DX: E11.8 Type 2 diabetes mellitus with unspecified complications (principal)
CPT/HCPCS: 80053; 80061

== ENCOUNTER → 2024-03-06 08:29 | Outpatient (BNVA) | payer MEDICARE, MEDICAID, SELFPAY | PROVIDERS: PCP Student in an Organized Health Care Education/Training Program; Referring Provider Student in an Organized Health Care Education/Training Program; Visit Provider Podiatrist | DX: L97.512 Non-pressure chronic ulcer of other part of right foot with fat layer exposed; I96 Gangrene, not elsewhere classified; E11.621 Type 2 diabetes mellitus with foot ulcer; Z99.2 Dependence on renal dialysis; M79.671 Pain in right foot; L03.115 Cellulitis of right lower limb; Z89.421 Acquired absence of other right toe(s) | CPT/HCPCS: 11042; 73630 ==

== ENCOUNTER 2024-03-06 13:55 | Outpatient (CLI) | payer MEDICARE, MEDICAID, SELFPAY ==
--- NOTE | 2024-03-06 09:20 | DI.RAD_ITS ---
Exam(s) XR FOOT RT COMPLETE EXAM: XR FOOT RT COMPLETE CLINICAL HISTORY: s/p amputation of 5th toe of rt foot, S98.131A. TECHNIQUE: 2D digital imaging was performed of the right foot. Three images were obtained. AP, obl ique and lateral views were obtained. COMPARISON: CR XR FOOT RT COMPLETE from 01/03/2024 FINDINGS: BONES: No acute fracture is present. No bony destructive lesion is seen. Since the prior examination the patient has undergone a resection of the 5th ray to the level of the diaphysis of the 5th metatar tahira bone. There is enthesophyte at the posterior calcaneus. There is a small plantar calcaneal spur . JOINTS: No dislocation present. There again seen marked degenerative changes in the midfoot. SOFT TISSUE: Atherosclerotic calcification is present. IMPRESSION: Interval amputation of the 5th ray to the level of the diaphysis of the 5th metatarsal bone. DATA REPOSITORY: RADIATION DOSE DELIVERED:
== END 2024-03-06 14:15 ==
PROVIDERS: PCP Student in an Organized Health Care Education/Training Program; Visit Provider Podiatrist
DX: S98.131D Complete traumatic amputation of one right lesser toe, subsequent encounter (principal); X58.XXXD Exposure to other specified factors, subsequent encounter; Z98.890 Other specified postprocedural states
CPT/HCPCS: 73630

== ENCOUNTER → 2024-04-03 08:30 | Outpatient (BNVA) | payer MEDICARE, MEDICAID, SELFPAY | PROVIDERS: PCP Student in an Organized Health Care Education/Training Program; Referring Provider Student in an Organized Health Care Education/Training Program; Visit Provider Podiatrist | DX: L97.512 Non-pressure chronic ulcer of other part of right foot with fat layer exposed; E11.621 Type 2 diabetes mellitus with foot ulcer; Z99.2 Dependence on renal dialysis; M79.671 Pain in right foot; L03.115 Cellulitis of right lower limb; I96 Gangrene, not elsewhere classified; Z89.421 Acquired absence of other right toe(s) | CPT/HCPCS: 11042 ==

== ENCOUNTER → 2024-04-11 14:20 | Outpatient (BNVA) | payer MEDICARE, MEDICAID, SELFPAY | PROVIDERS: PCP Student in an Organized Health Care Education/Training Program; Referring Provider Student in an Organized Health Care Education/Training Program; Visit Provider Podiatrist | DX: I96 Gangrene, not elsewhere classified (principal); E11.621 Type 2 diabetes mellitus with foot ulcer; L97.512 Non-pressure chronic ulcer of other part of right foot with fat layer exposed; Z89.421 Acquired absence of other right toe(s); Z99.2 Dependence on renal dialysis; M79.671 Pain in right foot; L03.115 Cellulitis of right lower limb; L60.3 Nail dystrophy; B35.1 Tinea unguium; N18.5 Chronic kidney disease, stage 5 | CPT/HCPCS: 11042; 11721 ==

== ENCOUNTER → 2024-05-10 12:57 | Outpatient (BNVA) | payer MEDICARE, MEDICAID, SELFPAY | PROVIDERS: PCP Student in an Organized Health Care Education/Training Program; Referring Provider Student in an Organized Health Care Education/Training Program; Visit Provider Podiatrist | DX: I96 Gangrene, not elsewhere classified (principal); L97.512 Non-pressure chronic ulcer of other part of right foot with fat layer exposed; E11.621 Type 2 diabetes mellitus with foot ulcer; Z99.2 Dependence on renal dialysis; M79.671 Pain in right foot; L03.115 Cellulitis of right lower limb; Z89.421 Acquired absence of other right toe(s) | CPT/HCPCS: 11042 ==

== ENCOUNTER → 2024-05-31 13:01 | Outpatient (BNVA) | payer MEDICARE, MEDICAID, SELFPAY | PROVIDERS: PCP Student in an Organized Health Care Education/Training Program; Referring Provider Student in an Organized Health Care Education/Training Program; Visit Provider Podiatrist | DX: I96 Gangrene, not elsewhere classified (principal); L97.502 Non-pressure chronic ulcer of other part of unspecified foot with fat layer exposed; E08.621 Diabetes mellitus due to underlying condition with foot ulcer; Z89.421 Acquired absence of other right toe(s); Z99.2 Dependence on renal dialysis; M79.671 Pain in right foot; L03.115 Cellulitis of right lower limb; B35.3 Tinea pedis; R23.8 Other skin changes; L60.3 Nail dystrophy; L60.2 Onychogryphosis; L60.8 Other nail disorders; B35.1 Tinea unguium; R09.89 Other specified symptoms and signs involving the circulatory and respiratory systems; L85.8 Other specified epidermal thickening; L84 Corns and callosities; N18.5 Chronic kidney disease, stage 5 | CPT/HCPCS: 11055 ==

== ENCOUNTER 2024-06-18 04:31 | Emergency (ER) | payer MEDICARE, MEDICAID, SELFPAY ==
[2024-06-18] VITALS (56 sets, daily range): BP systolic 118–175; BP diastolic 54–92; PULSE 82–122; RESP 13–28; TEMP 36.4–37; O2SAT 85–99
--- NOTE | 2024-06-18 04:30 | ED.GENADUL_ITS ---
Discharge Plan Disposition Condition: Stable Discharge Details Chief Complaint: RespSymp Clinical Impression: Multifocal pneumonia, New onset atrial fibrillation, End stage renal disease on dialysis Primary Care Provider: Jonatan Ambrosio ED Provider: Roderick Chávez [place] Meds and New Rx's Prescriptions: No Action gabapentin 300 mg capsule 300 mg PO TID fluticasone furoate-vilanterol [Breo Ellipta] 100-25 mcg/dose blister with device 1 inh inhalation DAILY Qty: 60 3RF ketoconazole 2 % cream 1 applic topical DAILY Qty: 120 6RF Rx Instructions: Apply to toenails once daily Santyl 250 unit/gram ointment 1 applic topical DAILY Qty: 90 0RF Rx Instructions: 3.8 x 1.6 x 0.3 cm fluticasone propionate [Flonase Allergy Relief] 50 mcg/actuation spray,suspension 1 spray intranasal BID Rx Instructions: administer into each nostril insulin glargine [Basaglar KwikPen U-100 Insulin] 100 unit/mL (3 mL) insulin pen 50 unit subcut HS (DME) Oxygen Tank See Rx Instructions .Route Rx Instructions: continuous at 2 L atorvastatin [Lipitor] 40 mg tablet 40 mg PO HS Patient Comments: TAKE ONE TABLET BY MOUTH EVERY EVENING bumetanide 2 mg tablet 2 mg PO BID aspirin 81 mg tablet,delayed release (DR/EC) 162 mg PO DAILY (DME) lancets 1 EACH misc 1 ea Miscellaneous QID Qty: 400 Rx Instructions: DX: 250.0 IDDM (DME) BD Regular Bevel Elco 1 EACH needle 1 ea Intrauterine AC Qty: 100 Rx Instructions: insulin pen needles (DME) pen needle, diabetic 1 EACH needle 1 ea Sub-Q TID Qty: 100 Rx Instructions: 31G X 1 DX: 250 (DME) Blood Glucose Test 1 EACH strip 1 ea Miscellaneous QID Qty: 400 Rx Instructions: DX:250.0 IDDM One touch ultra sertraline 50 mg tablet 50 mg PO DAILY amlodipine 10 mg tablet 10 mg PO DAILY diclofenac sodium [Aleve (diclofenac)] 1 % gel 2 g topical QID Rx Instructions: apply to single elbow, wrist or hand; for hand includes palm/fingers/back of hand (DME) EasiVent Holding Chamber Spacer See Rx Instructions .Route Rx Instructions: As directed tamsulosin 0.4 mg capsule 0.4 mg PO DAILY albuterol sulfate [Ventolin HFA] 90 mcg/actuation HFA aerosol inhaler 2 puff inhalation Q6H PRN aspirin 325 mg tablet 325 mg PO DAILY Renal Caps 1 mg capsule 1 cap PO DAILY (DME) Puracol Plus AG 2 X 2.2 bandage See Rx Instructions .Route Rx Instructions: As directed (DME) MPM Foam Dressing 2 X 2 bandage See Rx Instructions .Route Rx Instructions: As directed losartan 50 mg tablet 50 mg PO DAILY insulin aspart U-100 [Novolog FlexPen U-100 Insulin] 100 unit/mL (3 mL) insulin pen See Rx Instructions subcut DIRECTED Rx Instructions: 16-24u SC TID; 16u before breakfast and lunch and 24u before supper. sevelamer carbonate [Renvela] 800 mg tablet See Rx Instructions PO TID Rx Instructions: orally three times a day; must administer with a meal/food (3tabs TID per PCP note 02/24/24) HPI General Mode of arrival: EMS . Date/Time Provider Initiated Documentation: 06/18/24 04:36 . Limitations to Documentation: no limitations . Information obtained by: patient, RN notes reviewed and old records reviewed . HPI Narrative: Patient presenting to ED with complaint of increasing shortness of breath. He was due for dialysis this morning. Has had some intermittent shortness of breath over the last week. Over the weekend became increasingly short of breath with cough and a feeling of congestion but no chest pain or tightness. He has no fever that he is aware of. Denies abdominal pain or vomiting but has had decreased appetite. Is unaware of having fever. Is due for dialysis later this morning but because of his cough, congestion, shortness of breath came to ED early this morning. He did receive his dialysis on Tuesday. Related Data Home Medications ?Medication ?Instructions ?Recorded ?Confirmed lancets 28 gauge #400 ea 08/18/12 06/18/24 needle (disp) 21 G 21 gauge x 1 ##100 08/31/12 06/18/2405/03 (BD Regular Bevel Elco) pen needle, diabetic 31 gauge x ##100 11/15/13 06/18/2405/04 blood sugar diagnostic (Blood #400 strips 12/05/13 06/18/24 Glucose Test strips) sertraline 50 mg tablet 50 mg PO DAILY 03/11/20 06/18/24 fluticasone propionate 50 1 spray intranasal BID 11/11/20 06/18/24 mcg/actuation nasal spray,suspension (Flonase Allergy Relief) gabapentin 300 mg capsule 300 mg PO TID 03/17/22 06/18/24 Oxygen 05/14/22 06/18/24 fluticasone furoate 100 1 inh inhalation DAILY #60 ea 06/11/22 06/18/24 mcg-vilanterol 25 mcg/dose inhalation powder (Breo Ellipta) albuterol sulfate 90 mcg/actuation 2 puff inhalation Q6H PRN 05/03/23 06/18/24 aerosol inhaler (Ventolin HFA) amlodipine 10 mg tablet 10 mg PO DAILY 05/03/23 06/18/24 diclofenac sodium 1 % topical gel 2 g topical QID 05/03/23 06/18/24 (Aleve (diclofenac)) inhalational spacing device 05/03/23 06/18/24 (EasiVent Holding Chamber) tamsulosin 0.4 mg capsule 0.4 mg PO DAILY 05/03/23 06/18/24 atorvastatin 40 mg tablet (Lipitor) 40 mg PO HS 11/17/23 06/18/24 bumetanide 2 mg tablet 2 mg PO BID 11/17/23 06/18/24 ketoconazole 2 % topical cream 1 applic topical DAILY #120 grams 12/12/23 06/18/24 aspirin 325 mg tablet 325 mg PO DAILY 02/03/24 06/18/24 dressing, collagen-silver 2 X 02/03/24 06/18/24 2.2 (Puracol Plus AG) foam bandage 2 X 2 (MPM Foam 02/03/24 06/18/24 Dressing) losartan 50 mg tablet 50 mg PO DAILY 02/03/24 06/18/24 vitamin B complex and vitamin C 1 cap PO DAILY 02/03/24 06/18/24 no.20-folic acid 1 mg capsule (Renal Caps) collagenase clostridium histo. 250 1 applic topical DAILY #90 grams 03/06/24 06/18/24 unit/gram topical ointment (Santyl) aspirin 81 mg tablet,delayed 162 mg PO DAILY 04/11/24 06/18/24 release insulin aspart U-100 100 unit/mL See Rx Instructions subcut 04/11/24 06/18/24 (3 mL) subcutaneous pen (Novolog DIRECTED FlexPen U-100 Insulin aspart) insulin glargine 100 unit/mL (3 50 unit subcut HS 04/11/24 06/18/24 mL) subcutaneous pen (Basaglar KwikPen U-100 Insulin) sevelamer carbonate 800 mg tablet See Rx Instructions PO TID 04/11/24 06/18/24 (Renvela) Previous Rx's ?Medication ?Instructions ?Recorded fluticasone furoate 100 1 inh inhalation DAILY #60 ea 06/11/22 mcg-vilanterol 25 mcg/dose inhalation powder (Breo Ellipta) ketoconazole 2 % topical cream 1 applic topical DAILY #120 grams 12/12/23 collagenase clostridium histo. 250 1 applic topical DAILY #90 grams 03/06/24 unit/gram topical ointment (Santyl) Allergies Allergy/AdvReac Type Severity Reaction Status Date / Time ciprofloxacin Allergy Intermediate rash from Verified 06/18/24 04:40 IV General ABBIE: 3 Review of Systems Narrative: per HPI Exam Narrative Exam Narrative: Const: Obese male in NAD. VS per triage. HEENT: NC/AT. Normal facial exam. Neck: Supple. Trachea midline. Lungs: Mildly tachypneic with diffuse wet rhonchi throughout all lung manley. Cor: Irr/Irr without murmur. Good radial pulses. GI: Soft/ND/NT. Neuro: A+O x 3. Normal speech, mentation. Cranial nerves II - XII grossly intact. No gross motor or sensory deficit. Medical Decision Making Patient presenting to ED with increasing shortness of breath. Reports having some intermittent episodes of shortness of breath over the last week. This weekend increasing shortness of breath, congestion, cough. No fever that he is aware of. Malaise and decreased oral intake but no abdominal pain or vomiting. No chest pain. He is noted to be in atrial fibs/flutter on the monitor. EKG per my read confirms atrial flutter with predominant 2-1 block, right axis, nonspecific ST changes. This is new for the patient with no previous documenta tion of same. Saturations are good on 2 L nasal cannula that he is typically on. His lungs have diffuse wet rhonchi throughout. He does have a prior history of restrictive lung disease and he is on inhalers as well as oxygen. Differential includes viral illness, pneumonia, CHF, fluid overload, potentially PE given new onset A-fib. IV established. Laboratory studies and nasal swab sent. Given 10 mg of IV diltiazem for rate control. CTA of chest ordered given complaint of increasing shortness of breath and new onset A-fib. 07:00 - Patient's labs look surprisingly good. His white count is normal. Electrolytes with minimal abnormalities. BUN and creatinine are elevated as expected given he is due for dialysis today. Liver function is normal. Troponin is normal x 2. Nasal swab is negative. CT chest shows no evidence of pulmonary embolus but he does have multifocal pneumonia in both lungs. He did respond to the IV Cardizem with good rate control. Heart rate starting to go up again so will give oral Cardizem. He is ordered for IV antibiotics. He will require admission to treat his pneumonia as well as his new onset atrial fibrillation. Will begin calling tertiary care centers that have inpatient dialysis available. I have discussed findings, need for admission and transfer with patient who is agreeable to same. Calls have been placed to [facility] and to [facility]. Patient discussed with and signed out to Dr. Cano pending acceptance to tertiary facility. Medical Records Medical records reviewed: Yes I reviewed the patient's medical records. Medical records narrative: Recent palliative note Lab Data Lab results reviewed: Yes I reviewed the patient's lab results. Lab results narrative: Per [facility] ECG Data Attestation: I personally reviewed and interpreted this ECG (s) as follows: Prior ECG tracings: available for review Interpretation: See MDM/EKG [facility] All Active Problems (Updated 06/18/24 @ 06:59 by Roderick Chávez MD) End stage renal disease on dialysis (Acute) New onset atrial fibrillation (Acute) Multifocal pneumonia (Acute) Trochanteric bursitis of left hip (Acute) Diarrhea (Acute) Ventricular premature complex (Acute) Pain in left lower leg (Acute) Non-healing ulcer of right foot (Acute) Chronic ulcer of right foot (Acute) Diabetic ulcer of foot associated with diabetes mellitus due to underlying condition, with fat layer exposed (Acute) Ischemic ulcer of right foot (Acute) ACP (advance care planning) (Acute) Palliative care patient (Acute) Need for home health care (Acute) Financial difficulties (Acute) Cellulitis (Acute) Gangrene of toe of right foot (Acute) Pain in right foot (Acute) Ulcer of right foot with fat layer exposed (Acute) Chronic rhinitis (Acute) Respiratory failure with hypoxia (Acute) Bronchiectasis (Acute) Restrictive lung disease (Acute) Arthritis (Acute) Back, Hand Blindness, one eye (Acute) Dependence on hemodialysis (Acute) Finger pain (Acute) Anterior displaced fracture of sternal end of left clavicle, initial encounter for closed fracture (Acute) TBI (traumatic brain injury) (Acute) Lower back pain (Acute) Allergic rhinitis (Acute) Osteoporosis (Chronic) Tremor (Acute) Severe sleep apnea (Acute) Memory impairment (Acute) Hypoxia (Acute) Scarring of lung (Acute) Premature ventricular beat (Acute) Corns and callosities (Acute) Nail dystrophy (Acute) No-show for appointment (Acute) Secondary adhesive capsulitis of right shoulder (Acute) Trigger finger, right ring finger (Acute) Injection: 04/30/2019 Trigger finger, left middle finger (Acute) Colorectal polyps (Acute ~01/22/19) hyperplastic polyps Medical History Heart failure Personal history of other diseases of the digestive system Sleep apnea Essential hypertension Anxiety Amnesia Atherosclerosis of coronary artery without angina pectoris 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 Disorder due to well controlled type 2 diabetes mellitus Neuropathy due to type 2 diabetes mellitus Disorder of lung Senile osteoporosis Ulcer of foot due to type 2 diabetes mellitus Closed fracture of sternal end of left clavicle Closed fracture of proximal end of right humerus Bilateral hearing loss Hx of pancreatitis Blind right eye Depression Hyperlipidemia HTN (hypertension) Diabetic retinopathy Type 2 diabetes mellitus ESRD (end stage renal disease) AV fistula for hemodialysis CHF (congestive heart failure) Anxiety with depression Coronary arteriosclerosis Arteriovenous fistula lt arm Surgical History Arteriovenous fistula of left upper extremity Amputation of fifth toe of right foot S/P eye surgery S/P CABG (coronary artery bypass graft) Open Carpal Tunnel release (~2001) b/l Arthroplasty of knee (~1973) per pt knee arthroscopy not a TKA! Family History Father Heart disease Diabetes Mother Diabetes Renal disease Brother , from cardiac disease in his 50's Heart disease Social History Smoking/Tobacco Use Status: Former Tobacco Use Quit Date: 05/02/97 Pack-years: 15 Smoking risk assessment performed?: Yes Alcohol Intake: former Drug use: Current Sobriety Substance use type: marijuana Details: marijuana in the 70's Household members: spouse and children Housing: house Number of Children: 1 current occupation: Disabled Current gender identity: male What is your relationship status?: Panel score (0-1 are the most socially isolated patients): 1 What type of physical activity do you participate in: other Details: under desk qubi Seatbelt use: always Do you feel safe at home: Yes Do you feel safe in your relationship?: Yes
--- NOTE | 2024-06-18 04:30 | RT.EKG_ITS ---
APPROVED REPORT Exam: Resting ECG Reason for Exam: Resp Issue over 45 years old Patient Location: E HR:121 bpm ECG Measurements Heart Rate 121 AXIS NC [id number] P [id number] QRSd 95 QRS 111 QT 302 T [id number] QTc 414 Conclusion Atrial flutter with predominant 2:1 AV block...A-rate 245, multiple Ps Right axis deviation...QRS axis ( 91,269) Nonspecific ST-T changes
[2024-06-18 04:58] LABS: Abs Immature Grans 0.03 10^3/uL (0.0-0.06); Absolute Basophil Count 0.05 10^3/uL (0.0-0.2); Absolute Lymphocyte Count 0.79 10^3/uL (1.2-3.4); Absolute Monocyte Count 0.47 10^3/uL (0.1-0.8); Basophils % 0.6 %; Eosinophils % 7.5 %; HCT 42.4 % (40.0-50.0); Immature Grans % 0.4 %; Lymphocytes % 9.8 %; MCH 29.6 pg (27.0-33.0); MCHC 30.7 % (32.0-36.0); MCV 97 fL (80-95); MPV 9.7 fL (8.0-11.0); Monocytes % 5.8 %; Neutrophils % 75.9 %; Platelet Count 103 10^3/uL (130-400); RBC 4.39 10^6/uL (4.36-5.78); RDW 17.2 % (11.8-14.1); RDW-SD 61.3 fL; WBC 8.04 10^3/uL (4.4-10.8)
[2024-06-18] MEDS: dilTIAZem 25 MG/5 ML VIAL 10 MG IVP ×2 (04:59→08:11)
[2024-06-18 05:15] LABS: ALT 27 U/L (16-63); AST 23 U/L (15-37); Alkaline Phosphatase 100 U/L (46-116); Anion Gap 7.7 mmol/L (3-11); BUN 58 mg/dL (7-18); CO2 32.3 mmol/L (21.0-32.0); Calcium 8.9 mg/dL (8.5-10.1); Chloride 96 mmol/L (98-107); Estimated GFR 5.09 (mL/min/1.73m2); Glucose 208 mg/dL (74-106); Magnesium 2.4 mg/dL (1.8-2.4); Potassium 4.6 mmol/L (3.5-5.1); Sodium 136 mmol/L (136-145); Total Protein 8.7 g/dL (6.4-8.2); Troponin I 26 ng/L (<or=76)
[2024-06-18 05:16] LABS: CREATININE 10.3 mg/dL (0.70-1.30)
[2024-06-18 05:42] LABS: COVID-19 PCR Negative (Negative); Influenza A PCR Negative (Negative); Influenza B PCR Negative (Negative); RSV PCR Negative (Negative)
[2024-06-18 05:43] LABS: Source Nasopharynx
[2024-06-18] MEDS: Omnipaque 350 MG/ML 100 ML BTL 85 ML IJ (05:57)
[2024-06-18] MEDS: Normal Saline - Diluent 50 ML VIAL IJ (05:59)
--- NOTE | 2024-06-18 05:59 | DI.CT_ITS ---
Exam(s) CT CHEST PE CTA EXAM: CT CHEST PE CTA CLINICAL HISTORY: SOB, new onset afib. TECHNIQUE: Imaging Protocol: Axial CT angiography was performed with multi-slice acquisition and mu lti-planar and/or 3D reconstructions. Lung Computer Aided Detection (CAD) was utilized. CONTRAST MATERIAL: Intravenous: Omnipaque 350 contrast volume:85 mL COMPARISON: CT CT CHEST WO from 12/18/[address] CHEST/ABD/PEL WO from 02/12/2022 FINDINGS: The examination is limited due to patient motion artifact. Tracheobronchial tree: Patent where visualized. No bronchiectasis. There is mild bronchial wall thic kening particularly in the left lower lobe. Pulmonary parenchyma: Multifocal opacities are present. Findings are seen in both lower lobes, the l ingula and the right middle lobe. No architectural distortion. Pulmonary Arteries: Evaluation is limited by patient motion artifact. No pulmonary emboli are identi fied. Mediastinum and Lizeth: There again seen enlarged mediastinal lymph nodes. They have increased in size since the prior examination. There is a 1.7 x 1.2 cm lymph node in the mediastinum. (Series 12, im age 34). Previously this measured 1 x 0.5 cm. Visualized thyroid gland: Unremarkable. Pleura: Pleural calcifications are again seen in the left hemithorax. There may be a small left pleu ral effusion. No right pleural effusion. No pneumothorax. Heart: Cardiomegaly. Three vessel coronary artery calcification is present. No pericardial effusion . Aorta: Thoracic aorta non-dilated. No evidence of dissection. Atherosclerotic calcification is presen t. Upper abdomen: Unremarkable. Soft tissues: There is gynecomastia present. Bones: Within normal limits for the patient's age.Sternal wires are present. IMPRESSION: 1. No evidence of pulmonary embolism, thoracic aortic dissection or aneurysm. 2. Bilateral pulmonary opacities suspicious for pneumonia. 3. Enlarged mediastinal and hilar lymph nodes which may be reactive. RADIATION DOSE DELIVERED: 169.95mGy.cm Total DLP DATA REPOSITORY: All CT scans at this facility are submitted to the National Radiology Data Registry (NRDR) Dose Index Registry (DIR) with the [employer] (ACR). RADIATION OPTIMIZATION: All CT scans at this facility use at least one of these dose optimization te chniques: automated exposure control; mA and/or kV adjustment per patient size (includes targeted exa ms where dose is matched to clinical indication); or iterative reconstruction.
[2024-06-18 06:02] LABS: Troponin I 23 ng/L (<or=76)
--- NOTE | 2024-06-18 06:45 | DI.VRAD_ITS ---
PROCEDURE INFORMATION: Exam: CTA Chest With Contrast Exam date and time: 06/18/2024 5:39 AM Age: 64 years old Clinical indication: Shortness of breath; Prior surgery; Surgery date: 6+ months; Surgery type: Coronary artery bypass; SOB, new onset afib TECHNIQUE: Imaging protocol: Computed tomographic angiography of the chest with contrast. Exam focused on the arteries. 3D rendering (Not supervised by radiologist): MIP and/or 3D reconstructed images were created by the technologist. Radiation optimization: All CT scans at this facility use at least one of these dose optimization techniques: automated exposure control; mA and/or kV adjustment per patient size (includes targeted exams where dose is matched to clinical indication); or iterative reconstruction. Contrast material: [id number]; Contrast volume: 85 ml; Contrast route: INTRAVENOUS (IV); COMPARISON: CT CHEST/ABD/PEL WO 02/12/2022 11:33 PM FINDINGS: Limitations: Mild motion artifact. Pulmonary arteries: No pulmonary embolus is appreciated. Aorta: Atherosclerotic changes in the aorta and its branches. Lungs: Multifocal airspace opacities in both lungs. Nodular infiltrates at the lung bases. Pleural spaces: Left pleural calcifications. Heart: No pericardial effusion. Coronary arteries: Coronary artery calcifications. Lymph nodes: Mediastinal and bilateral hilar lymphadenopathy. Liver: Hepatomegaly. Spleen: Mild splenomegaly. Adrenal glands: Adrenal thickening. Bones/joints: No acute pertinent abnormality seen. Soft tissues: Gynecomastia. IMPRESSION: 1. Multifocal parenchymal opacities in both lungs consistent with pneumonia. Follow-up to resolution advised. 2. Additional findings as above. Dictated and Authenticated by: Saskia Delgadillo MD. Orderin Kyler Vaughn MD
--- NOTE | 2024-06-18 07:41 | ED.PROG_ITS ---
Date of service: 06/18/24 Time of Service: 07:41 Medical Decision Making Care assumed from off going provider. At the time of signout, final disposition was pending transfer acceptance at outside facility. Patient is a 64-year-old gentleman with past medical history including diabetes, end-stage renal disease on dialysis. He presented with new onset A-fib, currently rate controlled. Also in the setting of multifocal pneumonia. Cultures and antibiotics have been initiated. Patient is not requiring additional respiratory support from his baseline of 2 L. Due to his dialysis state, patient is not able to stay at this facility and will require transfer for hospitalization. 0800 Discussed potential transfer with [facility] hospitalist Dr. Dorian Ashford, who recommends that we keep the patient at this facility though I explained that we are unable to do so secondary to his dialysis requirement and hospital policy. He states that the patient does not sound sick enough to be transferred to their facility. [facility] declines transfer based on their lack of capacity at this time. Will reach out to [facility] 0815 Auto accepted at [facility]. Accepting doctor name Dr Fernandez. Will set up transport. Quality:MEOH Health Related Social Needs: No Data to Display Discharge Plan Disposition Patient Disposition: Transfer-Acute Inpatient Care Specific Acute Inpt Facility: [facility] Condition: Stable Discharge Details Chief Complaint: RespSymp Clinical Impression: Multifocal pneumonia, New onset atrial fibrillation, End stage renal disease on dialysis Primary Care Provider: Jonatan Ambrosio ED Provider: Renato Cano Home Meds and New Rx's Prescriptions: No Action gabapentin 300 mg capsule 300 mg PO TID fluticasone furoate-vilanterol [Breo Ellipta] 100-25 mcg/dose blister with device 1 inh inhalation DAILY Qty: 60 3RF ketoconazole 2 % cream 1 applic topical DAILY Qty: 120 6RF Rx Instructions: Apply to toenails once daily Santyl 250 unit/gram ointment 1 applic topical DAILY Qty: 90 0RF Rx Instructions: 3.8 x 1.6 x 0.3 cm fluticasone propionate [Flonase Allergy Relief] 50 mcg/actuation spray,suspension 1 spray intranasal BID Rx Instructions: administer into each nostril insulin glargine [Basaglar KwikPen U-100 Insulin] 100 unit/mL (3 mL) insulin pen 50 unit subcut HS (DME) Oxygen Tank See Rx Instructions .Route Rx Instructions: continuous at 2 L atorvastatin [Lipitor] 40 mg tablet 40 mg PO HS Patient Comments: TAKE ONE TABLET BY MOUTH EVERY EVENING bumetanide 2 mg tablet 2 mg PO BID aspirin 81 mg tablet,delayed release (DR/EC) 162 mg PO DAILY (DME) lancets 1 EACH misc 1 ea Miscellaneous QID Qty: 400 Rx Instructions: DX: 250.0 IDDM (DME) BD Regular Bevel [place] 1 EACH needle 1 ea Intrauterine AC Qty: 100 Rx Instructions: insulin pen needles (DME) pen needle, diabetic 1 EACH needle 1 ea Sub-Q TID Qty: 100 Rx Instructions: 31G X 1 DX: 250 (DME) Blood Glucose Test 1 EACH strip 1 ea Miscellaneous QID Qty: 400 Rx Instructions: DX:250.0 IDDM One touch ultra sertraline 50 mg tablet 50 mg PO DAILY amlodipine 10 mg tablet 10 mg PO DAILY diclofenac sodium [Aleve (diclofenac)] 1 % gel 2 g topical QID Rx Instructions: apply to single elbow, wrist or hand; for hand includes palm/fingers/back of hand (DME) EasiVent Holding Chamber Spacer See Rx Instructions .Route Rx Instructions: As directed tamsulosin 0.4 mg capsule 0.4 mg PO DAILY albuterol sulfate [Ventolin HFA] 90 mcg/actuation HFA aerosol inhaler 2 puff inhalation Q6H PRN aspirin 325 mg tablet 325 mg PO DAILY Renal Caps 1 mg capsule 1 cap PO DAILY (DME) Puracol Plus AG 2 X 2.2 bandage See Rx Instructions .Route Rx Instructions: As directed (DME) MPM Foam Dressing 2 X 2 bandage See Rx Instructions .Route Rx Instructions: As directed losartan 50 mg tablet 50 mg PO DAILY insulin aspart U-100 [Novolog FlexPen U-100 Insulin] 100 unit/mL (3 mL) insulin pen See Rx Instructions subcut DIRECTED Rx Instructions: 16-24u SC TID; 16u before breakfast and lunch and 24u before supper. sevelamer carbonate [Renvela] 800 mg tablet See Rx Instructions PO TID Rx Instructions: orally three times a day; must administer with a meal/food (3tabs TID per PCP note 02/24/24)
[2024-06-18] MEDS: cefTRIAXone 1 GM/50 ML BAG IVPB (07:42)
[2024-06-18] MEDS: dilTIAZem 30 MG TAB PO (07:42)
[2024-06-18] MEDS: DOXYCYCLINE 100 MG in Normal Saline 100 ML IVPB (07:43)
[2024-06-18] MEDS: Aspirin 325 MG TAB PO (08:12)
[2024-06-18] MEDS: Losartan 50 MG TAB PO (08:12)
[2024-06-18] MEDS: Gabapentin 300 MG CAP PO (08:13)
[2024-06-18] MEDS: amLODIPine 10 MG TAB PO (09:21)
[2024-06-18] MEDS: Sertraline 50 MG TAB PO (09:21)
--- NOTE | 2024-06-20 12:17 | NUR.NOTE ---
[facility] called asking if the patient's O2 concentrator, jacket and shoes were here. I looked in all the places that we have belongings and did not find them. They also stated that the patient said he had [facility] for O2 but did we know who he has for oxygen supplier. I checked the chart but did not find any mention of who he has. Nursing Note:
== END 2024-06-18 10:12 | disposition short-term general hospital (02) ==
PROVIDERS: Emergency Medicine; Emergency Provider Emergency Medicine; PCP Student in an Organized Health Care Education/Training Program
DX: J18.9 Pneumonia, unspecified organism (principal); I48.91 Unspecified atrial fibrillation; N18.6 End stage renal disease; Z99.2 Dependence on renal dialysis; E11.22 Type 2 diabetes mellitus with diabetic chronic kidney disease
CPT/HCPCS: 00123; 36415; 71275; 80053; 87637; 93005; 96365; 96368; 96375; 96376; 99285; 83735; 84484; 85025; 93010; J0696; J3490

== ENCOUNTER → 2024-07-10 09:16 | Outpatient (BNVA) | payer MEDICARE, MEDICAID, SELFPAY | PROVIDERS: PCP Student in an Organized Health Care Education/Training Program; Referring Provider Student in an Organized Health Care Education/Training Program; Visit Provider Podiatrist | DX: L97.512 Non-pressure chronic ulcer of other part of right foot with fat layer exposed (principal); E11.621 Type 2 diabetes mellitus with foot ulcer; Z99.2 Dependence on renal dialysis; N18.9 Chronic kidney disease, unspecified; I96 Gangrene, not elsewhere classified; M79.671 Pain in right foot; L03.115 Cellulitis of right lower limb | CPT/HCPCS: 11042 ==

== ENCOUNTER 2024-07-19 01:01 | Outpatient (CLI) | payer MEDICARE, MEDICAID, SELFPAY ==
--- NOTE | 2024-07-19 08:02 | DI.RAD_ITS ---
Exam(s) XR FOOT RT COMPLETE EXAM: XR FOOT RT COMPLETE CLINICAL HISTORY: plantar 1st met-head ulcer,osteomyelitis,rt foot pain,cellulitis,m86.9. TECHNIQUE: 2D digital imaging was performed. Three views. COMPARISON: CR XR FOOT RT COMPLETE from 03/06/2024 FINDINGS: BONES: No acute fracture is present. Postsurgical or resection to the level of the mid 5th metatarsa l is again noted. No bony destructive lesion is seen. Heel spurs. JOINTS: No dislocation present. Degenerative changes in intertarsal and tarsal metatarsal joints. SOFT TISSUE: Swelling and gauze around the region of the 1st MTP joint. Vascular calcifications. IMPRESSION: Prior amputation the 5th tuft to the level of the mid 5th metatarsal. No bony erosions. Degenerativ e changes of the mid foot. DATA REPOSITORY: RADIATION DOSE DELIVERED:
== END 2024-07-19 01:21 ==
LOC: DI 01:01
PROVIDERS: PCP Student in an Organized Health Care Education/Training Program; Visit Provider Podiatrist
DX: L97.512 Non-pressure chronic ulcer of other part of right foot with fat layer exposed (principal); M79.671 Pain in right foot; E11.621 Type 2 diabetes mellitus with foot ulcer; I96 Gangrene, not elsewhere classified; Z99.2 Dependence on renal dialysis; L03.115 Cellulitis of right lower limb; Z89.421 Acquired absence of other right toe(s)
CPT/HCPCS: 11042; 73630

== ENCOUNTER → 2024-08-15 12:42 | Outpatient (BNVA) | payer MEDICARE, MEDICAID, SELFPAY | PROVIDERS: PCP Student in an Organized Health Care Education/Training Program; Referring Provider Student in an Organized Health Care Education/Training Program; Visit Provider Podiatrist | DX: E11.621 Type 2 diabetes mellitus with foot ulcer (principal); L97.512 Non-pressure chronic ulcer of other part of right foot with fat layer exposed; M79.671 Pain in right foot; I96 Gangrene, not elsewhere classified; H54.40 Blindness, one eye, unspecified eye; Z99.2 Dependence on renal dialysis; L03.115 Cellulitis of right lower limb | CPT/HCPCS: 11042 ==

== ENCOUNTER 2024-09-04 08:42 | Emergency (ER) | payer MEDICARE, MEDICAID, SELFPAY ==
[2024-09-04 08:48] VITALS: BP 127/40; PULSE 61; RESP 16; O2SAT 100
[2024-09-04 08:50] VITALS: BP 127/40; PULSE 61; RESP 16; O2SAT 100
--- NOTE | 2024-09-04 08:52 | W.ED.GENAD ---
Discharge Plan Disposition Patient Disposition: Home Discharge Details Clinical Impression: Hemorrhage of hemodialysis arteriovenous fistula of left thigh, Arteriovenous fistula of left upper extremity Primary Care Provider: Jonatan Ambrosio ED Provider: Kimani Cota [place] Meds and New Rx's Prescriptions: Continued gabapentin 300 mg capsule 300 mg PO TID ketoconazole 2 % cream 1 applic topical DAILY Qty: 120 6RF Rx Instructions: Apply to toenails once daily insulin glargine [Basaglar KwikPen U-100 Insulin] 100 unit/mL (3 mL) insulin pen 50 unit subcut HS (DME) Oxygen Tank See Rx Instructions .Route Rx Instructions: continuous at 2 L atorvastatin [Lipitor] 40 mg tablet 40 mg PO HS Patient Comments: TAKE ONE TABLET BY MOUTH EVERY EVENING bumetanide 2 mg tablet 2 mg PO BID Eliquis 2.5 mg tablet 2.5 mg PO BID Rx Instructions: dose unverified (started at [facility] while in-pt) Jun, 2024. (DME) lancets 1 EACH misc 1 ea Miscellaneous QID Qty: 400 Rx Instructions: DX: 250.0 IDDM (DME) BD Regular Bevel [place] 1 EACH needle 1 ea Intrauterine AC Qty: 100 Rx Instructions: insulin pen needles (DME) pen needle, diabetic 1 EACH needle 1 ea Sub-Q TID Qty: 100 Rx Instructions: 31G X 1 DX: 250 (DME) Blood Glucose Test 1 EACH strip 1 ea Miscellaneous QID Qty: 400 Rx Instructions: DX:250.0 IDDM One touch ultra sertraline 50 mg tablet 50 mg PO DAILY amlodipine 10 mg tablet 10 mg PO DAILY diclofenac sodium [Aleve (diclofenac)] 1 % gel 2 g topical QID Rx Instructions: apply to single elbow, wrist or hand; for hand includes palm/fingers/back of hand (DME) EasiVent Holding Chamber Spacer See Rx Instructions .Route Rx Instructions: As directed tamsulosin 0.4 mg capsule 0.4 mg PO DAILY albuterol sulfate [Ventolin HFA] 90 mcg/actuation HFA aerosol inhaler 2 puff inhalation Q6H PRN aspirin 325 mg tablet 325 mg PO DAILY (DME) Puracol Plus AG 2 X 2.2 bandage See Rx Instructions .Route Rx Instructions: As directed (DME) MPM Foam Dressing 2 X 2 bandage See Rx Instructions .Route Rx Instructions: As directed insulin aspart U-100 [Novolog FlexPen U-100 Insulin] 100 unit/mL (3 mL) insulin pen See Rx Instructions subcut DIRECTED Rx Instructions: 16-24u SC TID; 16u before breakfast and lunch and 24u before supper. sevelamer carbonate [Renvela] 800 mg tablet See Rx Instructions PO TID Rx Instructions: orally three times a day; must administer with a meal/food (3tabs TID per PCP note 02/24/24) Santyl 250 unit/gram ointment 1 applic topical DAILY PRN Rx Instructions: 3.8 x 1.6 x 0.3 cm Discharge Instructions Additional Instructions: You are seen in the emergency department for your fistula that was bleeding. Your bleeding stopped prior to arrival. Please do not remove the dressing that you placed prior to arrival. Please follow-up with your dialysis clinic tomorrow. Please return if your bleeding returns. Discharge Data Discharge Date/Time-TO BE ENTERED AT DEPARTURE: 09/04/24 10:35 HPI General Date/Time Provider Initiated Documentation: 09/04/24 08:52. HPI Narrative: MDM This is an overall very well-appearing normothermic and not tachycardic 64-year-old male with left upper extremity fistula that reportedly had been bleeding yesterday but is no longer bleeding. Patient was observed in the emergency department for approximately an hour and a half. He was not bleeding. I advised him to keep his dressing intact until he is seen at dialysis tomorrow. We discussed the importance of resuming his apixaban given his history of peripheral vascular disease. We discussed that he should return to the emergency department if he developed bleeding that did not stop. I advised him that if he was at home and the bleeding occurred that he should hold pressure on the wound call EMS for transport. He understood his return indications and was discharged with an empiric trial of expectant outpatient management. HPI This is a 64-year-old dialysis dependent male arrived to the emergency department via private vehicle in the setting of left upper extremity bleeding from his fistula. Patient reports that he last had dialysis yesterday. He changed his dressing 4 times in the past 24 hours. He has had last changed his dressing approximately 45 minutes ago. He has not had any syncopal episodes. He did not take his apixaban today. Denies any ongoing bleeding. Exam General: Well-appearing in no acute distress speaking in complete sentences. Head: Normocephalic, atraumatic. Eye: Extraocular eye movements intact. No conjunctival injection. No scleral icterus. Ear, nose, mouth, throat: Grossly normal inspection. Normal voice, handling secretions normally. Neck: Trachea midline. Cardiovascular: Well-perfused distal extremities. Respiratory: Nonlabored respiration. Gastrointestinal: Nondistended abdomen. Musculoskeletal: Left upper extremity warm well-perfused 2+ left radial pulse. Cap refill less than 2 seconds in left hand. On the left forearm there is a fistula with positive thrill. There is a dressing on the fistula with no signs of strikethrough nor active bleeding. Skin: Normal for age and race, grossly normal temperature and turgor. No acute rash. Neurologic: Alert and appropriate, no apparent acute deficits. Psychiatric: Mood and manner are appropriate. Grooming and personal hygiene are appropriate. Related Data Home Medications ?Medication ?Instructions ?Recorded ?Confirmed lancets 28 gauge #400 ea 08/18/12 09/04/24 needle (disp) 21 G 21 gauge x 1 ##100 08/31/12 09/04/24 1 (BD Regular Bevel [place]) pen needle, diabetic 31 gauge x ##100 11/15/13 09/04/24 1 blood sugar diagnostic (Blood #400 strips 12/05/13 09/04/24 Glucose Test strips) sertraline 50 mg tablet 50 mg PO DAILY 03/11/20 09/04/24 gabapentin 300 mg capsule 300 mg PO TID 03/17/22 09/04/24 Oxygen 05/14/22 09/04/24 albuterol sulfate 90 mcg/actuation 2 puff inhalation Q6H PRN 05/03/23 09/04/24 aerosol inhaler (Ventolin HFA) amlodipine 10 mg tablet 10 mg PO DAILY 05/03/23 09/04/24 diclofenac sodium 1 % topical gel 2 g topical QID 05/03/23 09/04/24 (Aleve (diclofenac)) inhalational spacing device 05/03/23 09/04/24 (EasiVent Holding Chamber) tamsulosin 0.4 mg capsule 0.4 mg PO DAILY 05/03/23 09/04/24 atorvastatin 40 mg tablet (Lipitor) 40 mg PO HS 11/17/23 09/04/24 bumetanide 2 mg tablet 2 mg PO BID 11/17/23 09/04/24 ketoconazole 2 % topical cream 1 applic topical DAILY #120 grams 12/12/23 09/04/24 aspirin 325 mg tablet 325 mg PO DAILY 02/03/24 09/04/24 dressing, collagen-silver 2 X 02/03/24 09/04/24 2.2 (Puracol Plus AG) foam bandage 2 X 2 (MPM Foam 02/03/24 09/04/24 Dressing) insulin aspart U-100 100 unit/mL See Rx Instructions subcut 04/11/24 09/04/24 (3 mL) subcutaneous pen (Novolog DIRECTED FlexPen U-100 Insulin aspart) insulin glargine 100 unit/mL (3 50 unit subcut HS 04/11/24 09/04/24 mL) subcutaneous pen (Basaglar KwikPen U-100 Insulin) sevelamer carbonate 800 mg tablet See Rx Instructions PO TID 04/11/24 09/04/24 (Renvela) apixaban 2.5 mg tablet (Eliquis) 2.5 mg PO BID 07/10/24 09/04/24 collagenase clostridium histo. 250 1 applic topical DAILY PRN 09/04/24 09/04/24 unit/gram topical ointment (Santyl) Previous Rx's ?Medication ?Instructions ?Recorded ketoconazole 2 % topical cream 1 applic topical DAILY #120 grams 12/12/23 Allergies Allergy/AdvReac Type Severity Reaction Status Date / Time ciprofloxacin Allergy Intermediate rash from Verified 09/04/24 08:51 IV General Stated Complaint: [facility] ABBIE: 4 Course Vital Signs Vital signs: Vital Signs Pulse 61 09/04/24 08:48 Respiratory Rate 16 09/04/24 08:48 Blood Pressure 127/40 L 09/04/24 08:48 Pulse Oximetry 100 09/04/24 08:48 Pulse 61 09/04/24 08:50 Respiratory Rate 16 09/04/24 08:50 Blood Pressure 127/40 L 09/04/24 08:50 Blood Pressure Position Sitting 09/04/24 08:50 Pulse Oximetry 100 09/04/24 08:50 Oxygen Delivery Method Room Air 09/04/24 08:50 Oxygen Flow Rate 0 09/04/24 08:50 Pain Level 0 09/04/24 08:50 Medical Decision Making Quality:SDOH Health Related Social Needs: No Data to Display PFSH All Active Problems (Updated 09/04/24 @ 10:13 by Kimani Cota MD) Arteriovenous fistula of left upper extremity (Acute) Hemorrhage of hemodialysis arteriovenous fistula of left thigh (Acute) Trochanteric bursitis of left hip (Acute) Ventricular premature complex (Acute) Pain in left lower leg (Acute) Non-healing ulcer of right foot (Acute) Chronic ulcer of right foot (Acute) Diabetic ulcer of foot associated with diabetes mellitus due to underlying condition, with fat layer exposed (Acute) Ischemic ulcer of right foot (Acute) ACP (advance care planning) (Acute) Palliative care patient (Acute) Need for home health care (Acute) Financial difficulties (Acute) Cellulitis (Acute) Gangrene of toe of right foot (Acute) Pain in right foot (Acute) Ulcer of right foot with fat layer exposed (Acute) Chronic rhinitis (Acute) Respiratory failure with hypoxia (Acute) Bronchiectasis (Acute) Restrictive lung disease (Acute) Arthritis (Acute) Back, Hand Blindness, one eye (Acute) Dependence on hemodialysis (Acute) Finger pain (Acute) Anterior displaced fracture of sternal end of left clavicle, initial encounter for closed fracture (Acute) TBI (traumatic brain injury) (Acute) Lower back pain (Acute) Allergic rhinitis (Acute) Osteoporosis (Chronic) Tremor (Acute) Severe sleep apnea (Acute) Memory impairment (Acute) Hypoxia (Acute) Scarring of lung (Acute) Premature ventricular beat (Acute) Corns and callosities (Acute) Nail dystrophy (Acute) No-show for appointment (Acute) Secondary adhesive capsulitis of right shoulder (Acute) Trigger finger, right ring finger (Acute) Injection: 04/30/2019 Trigger finger, left middle finger (Acute) Colorectal polyps (Acute ~01/22/19) hyperplastic polyps Medical History Heart failure Personal history of other diseases of the digestive system Sleep apnea Essential hypertension Anxiety Amnesia Atherosclerosis of coronary artery without angina pectoris 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 Disorder due to well controlled type 2 diabetes mellitus Neuropathy due to type 2 diabetes mellitus Disorder of lung Senile osteoporosis Ulcer of foot due to type 2 diabetes mellitus Closed fracture of sternal end of left clavicle Closed fracture of proximal end of right humerus Bilateral hearing loss Hx of pancreatitis Blind right eye Depression Hyperlipidemia HTN (hypertension) Diabetic retinopathy Type 2 diabetes mellitus ESRD (end stage renal disease) AV fistula for hemodialysis CHF (congestive heart failure) Anxiety with depression Coronary arteriosclerosis Arteriovenous fistula lt arm Surgical History Arteriovenous fistula of left upper extremity Amputation of fifth toe of right foot S/P eye surgery S/P CABG (coronary artery bypass graft) Open Carpal Tunnel release (~2001) b/l Arthroplasty of knee (~1973) per pt knee arthroscopy not a TKA! Family History Father Heart disease Diabetes Mother Diabetes Renal disease Brother , from cardiac disease in his 50's Heart disease Social History Smoking/Tobacco Use Status: Former Tobacco Use Quit Date: 05/02/97 Pack-years: 15 Smoking risk assessment performed?: Yes Alcohol Intake: former Drug use: Current Sobriety Substance use type: marijuana Details: marijuana in the 70's Household members: spouse and children Housing: house Number of Children: 1 current occupation: Disabled Current gender identity: male What is your relationship status?: Panel score (0-1 are the most socially isolated patients): 1 What type of physical activity do you participate in: other Details: under desk qubi Seatbelt use: always Do you feel safe at home: Yes Do you feel safe in your relationship?: Yes
--- NOTE | 2024-09-04 09:42 | NUR.NOTE ---
Nursing Note: Pt presented with bleeding to left arm fistula site. Bleeding has stopped at this time. Dr. Mckay to re-assess.
[2024-09-04 10:35] VITALS: BP 144/64; PULSE 61; RESP 16; TEMP 36.6; O2SAT 99
[2024-09-04 10:36] VITALS: TEMP 36.7
== END 2024-09-04 10:35 | disposition home or self-care (01) ==
PROVIDERS: Emergency Provider Emergency Medicine; PCP Student in an Organized Health Care Education/Training Program
DX: T82.838A Hemorrhage due to vascular prosthetic devices, implants and grafts, initial encounter (principal); E11.22 Type 2 diabetes mellitus with diabetic chronic kidney disease; N18.6 End stage renal disease; I25.10 Atherosclerotic heart disease of native coronary artery without angina pectoris; Z99.2 Dependence on renal dialysis; Z95.1 Presence of aortocoronary bypass graft; Z79.4 Long term (current) use of insulin; Z79.01 Long term (current) use of anticoagulants; Z99.81 Dependence on supplemental oxygen; Z87.891 Personal history of nicotine dependence
CPT/HCPCS: 99283

== ENCOUNTER → 2024-09-06 12:49 | Outpatient (BNVA) | payer MEDICARE, MEDICAID, SELFPAY | PROVIDERS: PCP Student in an Organized Health Care Education/Training Program; Referring Provider Student in an Organized Health Care Education/Training Program; Visit Provider Podiatrist | DX: E11.621 Type 2 diabetes mellitus with foot ulcer (principal); L97.512 Non-pressure chronic ulcer of other part of right foot with fat layer exposed; I96 Gangrene, not elsewhere classified; H54.40 Blindness, one eye, unspecified eye; Z99.2 Dependence on renal dialysis; M79.671 Pain in right foot; L03.115 Cellulitis of right lower limb; Z89.421 Acquired absence of other right toe(s) | CPT/HCPCS: 11042 ==

== ENCOUNTER → 2024-09-27 11:19 | Outpatient (BNVA) | payer MEDICARE, MEDICAID, SELFPAY | PROVIDERS: PCP Student in an Organized Health Care Education/Training Program; Referring Provider Student in an Organized Health Care Education/Training Program; Visit Provider Podiatrist | DX: L97.512 Non-pressure chronic ulcer of other part of right foot with fat layer exposed; E11.621 Type 2 diabetes mellitus with foot ulcer; L60.3 Nail dystrophy; I96 Gangrene, not elsewhere classified; Z99.2 Dependence on renal dialysis; M79.671 Pain in right foot; L03.115 Cellulitis of right lower limb; B35.1 Tinea unguium | CPT/HCPCS: 11042; 11721 ==

== ENCOUNTER → 2024-10-25 11:16 | Outpatient (BNVA) | payer MEDICARE, MEDICAID, SELFPAY | PROVIDERS: PCP Student in an Organized Health Care Education/Training Program; Referring Provider Student in an Organized Health Care Education/Training Program; Visit Provider Podiatrist | DX: E11.621 Type 2 diabetes mellitus with foot ulcer (principal); L97.512 Non-pressure chronic ulcer of other part of right foot with fat layer exposed; L03.115 Cellulitis of right lower limb; I96 Gangrene, not elsewhere classified; Z89.421 Acquired absence of other right toe(s); H54.40 Blindness, one eye, unspecified eye; Z99.2 Dependence on renal dialysis; M79.671 Pain in right foot; N18.6 End stage renal disease | CPT/HCPCS: 11056; 97597 ==

== ENCOUNTER → 2024-11-29 10:48 | Outpatient (BNVA) | payer MEDICARE, MEDICAID, SELFPAY | PROVIDERS: PCP Student in an Organized Health Care Education/Training Program; Referring Provider Student in an Organized Health Care Education/Training Program; Visit Provider Podiatrist | DX: E11.621 Type 2 diabetes mellitus with foot ulcer (principal); L97.512 Non-pressure chronic ulcer of other part of right foot with fat layer exposed; L03.115 Cellulitis of right lower limb; I96 Gangrene, not elsewhere classified; E11.22 Type 2 diabetes mellitus with diabetic chronic kidney disease; N18.6 End stage renal disease; Z99.2 Dependence on renal dialysis; H54.40 Blindness, one eye, unspecified eye; M79.671 Pain in right foot; R09.89 Other specified symptoms and signs involving the circulatory and respiratory systems; R23.8 Other skin changes; L60.2 Onychogryphosis; L60.8 Other nail disorders; L60.3 Nail dystrophy; B35.1 Tinea unguium | CPT/HCPCS: 11055 ==

== ENCOUNTER → 2025-01-15 13:24 | Outpatient (BNVA) | payer MEDICARE, MEDICAID, SELFPAY | PROVIDERS: PCP Student in an Organized Health Care Education/Training Program; Referring Provider Student in an Organized Health Care Education/Training Program; Visit Provider Podiatrist | DX: E11.621 Type 2 diabetes mellitus with foot ulcer (principal); L97.512 Non-pressure chronic ulcer of other part of right foot with fat layer exposed; L03.115 Cellulitis of right lower limb; N18.6 End stage renal disease; Z99.2 Dependence on renal dialysis; M79.671 Pain in right foot; L60.3 Nail dystrophy; R09.89 Other specified symptoms and signs involving the circulatory and respiratory systems; R20.8 Other disturbances of skin sensation; I83.93 Asymptomatic varicose veins of bilateral lower extremities; L65.9 Nonscarring hair loss, unspecified; R23.4 Changes in skin texture; R23.8 Other skin changes; L85.8 Other specified epidermal thickening; L60.2 Onychogryphosis; L60.8 Other nail disorders | CPT/HCPCS: 11055; 11721 ==